=== PATIENT | female | born 1975 | race Caucasian/White ===

== ENCOUNTER 2023-09-22 11:20 | Outpatient (OUT) | payer BC, SELFPAY ==
[2023-09-22 14:57] LABS: C. Difficile PCR POSITIVE (NEGATIVE)
== END 2023-09-22 11:21 | disposition home or self-care (01) ==
LOC: LAB 11:20
PROVIDERS: PCP Internal Medicine; Visit Provider Physician Assistant
DX: J01.00 Acute maxillary sinusitis, unspecified (principal); R19.7 Diarrhea, unspecified
CPT/HCPCS: 87493

== ENCOUNTER 2023-11-09 09:19 | Emergency (ER) | payer BC, SELFPAY ==
[2023-11-09 09:22] VITALS: BP 120/86; PULSE 101; RESP 20; TEMP 37.1; O2SAT 94; BMI 27.5
--- NOTE | 2023-11-09 09:39 | PC.NURSE ---
pt arrived to er with right upper arm picc in place. pt states has chronic GI issues and had picc placed for meds and fluids
--- NOTE | 2023-11-09 10:25 | XR_ITS ---
The [address] [address] Patient Name: DAWSON DÍAZ MRN: [id number] date: 1975 Sex: F Assigned Patient Location: ER Current Patient Location: ER Accession/Order Number: [id number] Exam Date: 11/09/2023 10:20 Report Date: 11/09/2023 10:46 At the request of: SAVI WOOD Procedure: XR chest 1V EXAM: XR chest 1V HISTORY: cp COMPARISON: None. TECHNIQUE: AP view of the chest. FINDINGS: The cardiomediastinal silhouette is normal. Bibasilar stranding opacities. Bilateral pleural effusions. No pneumothorax. Left-sided PICC line with distal tip in SVC. The osseous structures are intact. XR/XR chest 1V IMPRESSION: Bibasilar atelectasis or pneumonia. Bilateral pleural effusions. Electronically authenticated by: LAMAR MUNIZ Date: 11/09/2023 10:46
[2023-11-09] MEDS: MORPHINE SULFATE 2 MG/ML SYRINGE IV (10:26)
[2023-11-09 10:28] LABS: Basophils Absolute Auto 0.1 10^3/uL (0.0-0.1); Basophils Percent Auto 0.7 % (0.2-2.0); Eosinophils Absolute Auto 0.2 10^3/uL (0.0-0.7); Eosinophils Percent Auto 2.8 % (0.9-7.0); Hemoglobin 10.5 g/dL (12.0-16.0); Immature Granulocytes Abs Auto 0.03 10^3/uL (0.00-0.03); Immature Granulocytes Pct Auto 0.4 % (0.0-0.5); Lymphocytes Percent Auto 23.5 % (20.5-60.0); Mean Corpuscular HGB Conc 32.8 g/dL (29.9-35.2); Mean Corpuscular Hemoglobin 29.2 pg (26.7-34.0); Mean Corpuscular Volume 89.1 fL (81.0-99.0); Monocytes Absolute Auto 0.7 10^3/uL (0.3-0.8); Monocytes Percent Auto 8.4 % (1.7-12.0); Neutrophils Absolute Auto 5.4 10^3/uL (1.4-6.5); Neutrophils Percent Auto 64.2 % (43.0-75.0); Platelet Count 202 10^3/uL (150-450); Red Blood Count 3.59 10^6/uL (4.20-5.40); Red Cell Distribution Width 13.8 % (11.0-15.0); White Blood Count 8.4 10^3/uL (4.0-11.0)
[2023-11-09 10:45] LABS: Prothrombin Time 9.8 sec (9.0-11.6)
[2023-11-09 10:49] LABS: HCG Qualitative NEGATIVE (NEGATIVE)
[2023-11-09 10:51] LABS: INR <0.93
[2023-11-09 10:56] LABS: D Dimer 1.78 mg/L FEU (<=0.59)
[2023-11-09 10:57] LABS: Alanine Aminotransferase 24 U/L (14-59); Albumin Globulin Ratio 0.7; Albumin Level 2.8 g/dL (3.4-5.0); Alkaline Phosphatase 117 U/L (46-116); Anion Gap 10.4; Aspartate Amino Transferase 14 U/L (15-37); BUN Creatinine Ratio 13.1; Bilirubin Total 0.5 mg/dL (0.2-1.0); Calcium 8.7 mg/dL (8.5-10.1); Carbon Dioxide 28.5 mmol/L (21.0-32.0); Chloride 103 mmol/L (98-107); Estimated GFR (African America >60 (>=60); Estimated GFR (Non-African Ame >60 (>=60); Globulin 3.9 g/dL; Glucose 93 mg/dL (74-106); Potassium 3.9 mmol/L (3.5-5.1); Sodium 138 mmol/L (136-145); Total Protein 6.7 g/dL (6.4-8.2)
[2023-11-09] MEDS: PROCHLORPERAZINE 10 MG/2 ML VIAL 5 MG IV (11:45)
[2023-11-09] MEDS: HYDROMORPHONE HCL 1 MG/ML CARTRIDGE IV (12:02)
--- NOTE | 2023-11-09 12:35 | CT_ITS ---
The [address] [address] Patient Name: DAWSON DÍAZ MRN: [id number] date: 1975 Sex: F Assigned Patient Location: ER Current Patient Location: ER Accession/Order Number: [id number] Exam Date: 11/09/2023 12:15 Report Date: 11/09/2023 13:02 At the request of: SAVI WOOD Procedure: CT angio chest EXAMINATION: CT angio chest HISTORY: PE role out COMPARISON: No relevant comparison available. TECHNIQUE: Multi-planar CT images were created with IV contrast. Axial, Coronal, and Sagittal images. Dose reduction techniques were achieved by using automated exposure control and/or adjustment of mA and/or kV according to patient size and/or use of iterative reconstruction technique. FINDINGS: LUNGS: 7 mm left upper lobe nodule axial image 34. Partial consolidation of both lower lobes with presence of air bronchograms, right greater than left PLEURA: 1.2 cm right pleural effusion VASCULATURE: Normal postcontrast opacification of the central pulmonary arterial tree with no filling defects LUCINDA: Borderline enlarged right hilar lymph node MEDIASTINUM: No mass or adenopathy. CARDIAC: No enlargement, pericardial thickening, or significant calcification. AORTA: No aneurysm or dissection. CHEST WALL: No mass or axillary adenopathy. BONES: No bone lesion or fracture. LIMITED ABDOMEN: Suture lines along the stomach OTHER: Left central venous catheter tip extends to the distal superior vena cava CT/CT angio chest IMPRESSION: No significant pulmonary thromboembolic disease Partial bibasilar consolidation right greater than left with small right pleural effusion Electronically authenticated by: LASHAWN FAJARDO Date: 11/09/2023 13:02
--- NOTE | 2023-11-09 12:48 | ED_ITS ---
HPI - General Adult General Chief complaint: Upper Respiratory Infection Stated complaint: SOB Time Seen by Provider: 11/09/23 09:37 Source: patient Mode of arrival: walk-in History of Present Illness HPI narrative: The patient have a history of diagnosis of C. difficile almost a month ago and multiple gastroenterology related problems at that according to her she having a PICC line and she give herself IV fluid twice a day with Compazine. Patient presented to us with a right upper chest pain that is continuous for the last 2 days associated also with taking a deep breath in addition to movement. The patient have no fever chills at the moment but if she might have a chills over the last few days. No coughing no nausea no vomiting but the patient have decreased p.o. intake because of her gastric issues. The patient right-sided chest pain comes whenever she take a deep breath or laying in the right side. Related Data Home Medications Medication Instructions Recorded Confirmed alprazolam 0.5 mg tablet mg 11/09/23 cholecalciferol (vitamin D3) 1,250 11/09/23 mcg (50,000 unit) capsule cyanocobalamin (vitamin B-12) mcg 11/09/23 1,000 mcg/mL injection solution dextroamphetamine-amphetamine 15 11/09/23 mg tablet dicyclomine 20 mg tablet mg 11/09/23 diphenoxylate-atropine 2.5 tab 11/09/23 mg-0.025 mg tablet duloxetine 20 mg capsule,delayed mg PO 11/09/23 release rpsaav-mleonsvo-vygussu cap PO 11/09/23 36,000-114,000-180,000 unit capsule,delay rel (Creon) olanzapine 5 mg tablet mg 11/09/23 ondansetron 8 mg disintegrating mg 11/09/23 tablet oxycodone-acetaminophen 10 mg-325 tab 11/09/23 mg tablet promethazine 25 mg tablet mg 11/09/23 sertraline 100 mg tablet mg 11/09/23 trazodone 100 mg tablet mg 11/09/23 venlafaxine 75 mg capsule,extended mg PO 11/09/23 release 24 hr Previous Rx's Medication Instructions Recorded doxycycline hyclate 100 mg capsule 100 mg PO BID 7 days #14 caps 11/09/23 orphenadrine citrate 100 mg 100 mg PO DAILY PRN muscle spasm 11/09/23 tablet,extended release #10 tabs oxycodone-acetaminophen 5 mg-325 1 tab PO Q8H PRN pain #3 tabs 11/09/23 mg tablet (Percocet) prednisone 20 mg tablet 40 mg (2 x 20 mg) PO DAILY 5 days 11/09/23 #10 tabs Allergies Allergy/AdvReac Type Severity Reaction Status Date / Time adhesive tape Allergy Severe Rash Verified 11/09/23 09:27 gabapentin Allergy Severe Anaphylaxis Verified 11/09/23 09:27 ketorolac [From Toradol] AdvReac Severe Hives Verified 11/09/23 09:27 tramadol AdvReac Severe Hives Verified 11/09/23 09:27 Review of Systems ROS Status of ROS 10 or more systems reviewed and unremark able except as noted in history and below Exam Narrative Exam Narrative: Nurses notes and vital signs reviewed and patient is not hypoxic. General: Well-appearing and in no apparent distress. Skin: Warm, dry, no pallor noted. No rash. Head: Normocephalic, atraumatic. Neck: Supple, non-tender. Eye: Pupils are equal, round and EOMI. No scleral icterus. Ears, Nose, Mouth, and Throat: TM are clear, no nasal mucosal hypertrophy. Oral mucosa is moist, no posterior oropharynx erythema, uvula is mid-line Cardiovascular: Regular Rate and Rhythm without murmur, gallop or rub. Respiratory: No accessory muscle use or respiratory distress. Lungs are clear to auscultation, no wheezing, rales or rhonchi Chest Wall: Tenderness upon palpation of the right posterior aspect of the right side of the chest wall Back: No midline thoracic or lumbar vertebral tenderness. No CVA tenderness Musculoskeletal: normal ROM, no calf or popliteal tenderness, no lower extremity edema/swelling and the patient have a PICC line in the left arm GI: Abdomen is soft, non-distended. Normal bowel sounds. No masses appreciated. No tenderness to palpation. No rebound, guarding, or rigidity noted. Neurological: A&O x4. No cranial nerve dysfunction observed. No truncal ataxia. Moves all extremities. Sensation intact. Psychiatric: Cooperative and interactive. Normal mood and affect. Constitutional Vital Signs, click to edit/add: Last Vital Signs Temp 100.4 F 11/09/23 13:37 Pulse 101 H 11/09/23 09:22 Resp 20 11/09/23 09:22 BP 120/86 11/09/23 09:22 Pulse Ox 94 L 11/09/23 09:22 O2 Del Method Room Air 11/09/23 09:22 Course Vital Signs Vital signs: Vital Signs Temperature 98.7 F 11/09/23 09:22 Pulse Rate 101 H 11/09/23 09:22 Respiratory Rate 20 11/09/23 09:22 Blood Pressure 120/86 11/09/23 09:22 Pulse Oximetry 94 L 11/09/23 09:22 Oxygen Delivery Method Room Air 11/09/23 09:22 Temperature 100.4 F 11/09/23 13:37 Pulse Rate 101 H 11/09/23 09:22 Respiratory Rate 20 11/09/23 09:22 Blood Pressure 120/86 11/09/23 09:22 Pulse Oximetry 94 L 11/09/23 09:22 Oxygen Delivery Method Room Air 11/09/23 09:22 Medical Decision Making MDM Narrative Medical decision making narrative: Patient have a low tolerance for pain and she does not not take any NSAIDs because she have a history of gastric bypass surgery Chest x-ray showed no significant pathology except for possible infiltrate in the patient CAT scan of the chest after ruling out PE did show some infiltrate as well as effusion CBC and chemistry were within normal and the patient was started on antibiotic for possible pneumonia with a pleuritic chest pain could be the reason for her pain The patient presentation is mostly benign with the patient history showing no hypoxemia and the white blood cells not elevated with no elevated BUN I did discuss the case with Dr. Streeter to make sure that the patient have no criteria to be admitted The patient was discharged home after she was treated with prednisone as well as a replacing tizanidine with Norflex and only 3 tablets of Percocet as the patient opiate intake is concerning Reviewing the patient OA RRS she last prescribed 6 tablets on the of this month of Percocet The patient is to follow up with primary care physician in next 2-3 days or to return to the emergency department should any of the signs or symptoms worsen or new symptoms develop. The patient agrees with the following Diagnosis and Treatment plan and the patient will be discharged home. Lab Data Labs: Lab Results 11/09/23 Range/Units 10:15 WBC 8.4 (4.0-11.0) 10^3/uL RBC 3.59 L (4.20-5.40) 10^6/uL Hgb 10.5 L (12.0-16.0) g/dL Hct 32.0 L (36.0-48.0) % MCV 89.1 (81.0-99.0) fL MCH 29.2 (26.7-34.0) pg MCHC 32.8 (29.9-35.2) g/dL RDW 13.8 (11.0-15.0) % Plt Count 202 (150-450) 10^3/uL MPV 10.0 (9.5-13.5) fL Neut % (Auto) 64.2 (43.0-75.0) % Lymph % (Auto) 23.5 (20.5-60.0) % [place] % (Auto) 8.4 (1.7-12.0) % Eos % (Auto) 2.8 (0.9-7.0) % Baso % (Auto) 0.7 (0.2-2.0) % Neut # (Auto) 5.4 (1.4-6.5) 10^3/uL Lymph # (Auto) 2.0 (1.2-3.8) 10^3/uL [place] # (Auto) 0.7 (0.3-0.8) 10^3/uL Eos # (Auto) 0.2 (0.0-0.7) 10^3/uL Baso # (Auto) 0.1 (0.0-0.1) 10^3/uL Abs Immat Gran (auto) 0.03 (0.00-0.03) 10^3/uL Imm/Tot Granulo (auto) 0.4 (0.0-0.5) % PT 9.8 (9.0-11.6) sec INR <0.93 D-Dimer 1.78 H* (<=0.59) mg/L FEU Sodium 138 (136-145) mmol/L Potassium 3.9 (3.5-5.1) mmol/L Chloride 103 (98-107) mmol/L Carbon Dioxide 28.5 (21.0-32.0) mmol/L Anion Gap 10.4 BUN 8.0 (7.0-18.0) mg/dL Creatinine 0.61 (0.55-1.02) mg/dL Est GFR ( Amer) >60 (>=60) Est GFR (Non-Af Amer) >60 (>=60) BUN/Creatinine Ratio 13.1 Glucose 93 (74-106) mg/dL Calcium 8.7 (8.5-10.1) mg/dL Magnesium 2.0 (1.8-2.4) mg/dL Total Bilirubin 0.5 (0.2-1.0) mg/dL AST 14 L (15-37) U/L ALT 24 (14-59) U/L Alkaline Phosphatase 117 H (46-116) U/L Total Protein 6.7 (6.4-8.2) g/dL Albumin 2.8 L (3.4-5.0) g/dL Globulin 3.9 g/dL Albumin/Globulin Ratio 0.7 Serum HCG, Qual Negative (NEGATIVE) Discharge Plan Discharge Chief Complaint: Upper Respiratory Infection Clinical Impression: Chest pain, pleuritic Pneumonia Qualifiers: Pneumonia type: due to unspecified organism Laterality: right Lung location: lower lobe of lung Qualified Code(s): J18.9 - Pneumonia, unspecified organism Patient Disposition: Home, Self-Care Time of Disposition Decision: 14:04 Condition: Good Prescriptions / Home Meds: New oxycodone-acetaminophen [Percocet] 5-325 mg tablet 1 tab PO Q8H PRN (Reason: pain) Qty: 3 0RF doxycycline hyclate 100 mg capsule 100 mg PO BID 7 Days Qty: 14 0RF orphenadrine citrate 100 mg tablet extended release 100 mg PO DAILY PRN (Reason: muscle spasm) Qty: 10 0RF prednisone 20 mg tablet 40 mg PO DAILY 5 Days Qty: 10 0RF Discontinued tizanidine 4 mg tablet oxycodone 5 mg tablet No Action venlafaxine 75 mg capsule,extended release 24hr PO sertraline 100 mg tablet olanzapine 5 mg tablet diphenoxylate-atropine 2.5-0.025 mg tablet ondansetron 8 mg tablet,disintegrating alprazolam 0.5 mg tablet oxycodone-acetaminophen 10-325 mg tablet trazodone 100 mg tablet dicyclomine 20 mg tablet cyanocobalamin (vitamin B-12) 1,000 mcg/mL solution promethazine 25 mg tablet dextroamphetamine-amphetamine 15 mg tablet duloxetine 20 mg capsule,delayed release(DR/EC) PO cholecalciferol (vitamin D3) 1,250 mcg (50,000 unit) capsule Creon 36,000-114,000- 180,000 unit capsule,delayed release(DR/EC) PO Instructions: Pleurisy (DC), Pneumonia (ED) Stand Alone Forms: Portal Instructions Referrals: DANIA PARDO [Primary Care Provider] - 1 week
[2023-11-09 13:37] VITALS: TEMP 38
[2023-11-09] MEDS: ORPHENADRINE 60 MG/ 2 ML VIAL IV (13:59)
[2023-11-09] MEDS: DOXYCYCLINE MONOHYDRATE 100 MG CAPSULE PO (13:59)
[2023-11-09] MEDS: OXYCODONE HCL 5 MG TABLET PO (13:59)
[2023-11-09] MEDS: METHYLPREDNISOLONE SOD SUCC PF 125 MG/2 ML VIAL IVP (13:59)
[2023-11-09] MEDS: CEFTRIAXONE 1,000 MG in 0.9 % SODIUM CHLORIDE 50 ML 100 MG IV (14:00)
--- NOTE | 2023-11-09 14:40 | PC.NURSE ---
PICC line flushed with 12cc NS. ETOH cap applied and PICC clamped.
== END 2023-11-09 14:44 | disposition home or self-care (01) ==
PROVIDERS: Emergency Provider Emergency Medicine; PCP Internal Medicine
DX: J18.9 Pneumonia, unspecified organism (principal); R07.9 Chest pain, unspecified; R07.81 Pleurodynia; Z79.899 Other long term (current) drug therapy; Z98.84 Bariatric surgery status; R06.02 Shortness of breath
CPT/HCPCS: 36415; 71045; 71275; 80053; 83735; 84703; 85025; 85378; 85610; 96365; 96375; 99285; J0696; J0780; J1170; J2270; J2360; J2930; Q9967

== ENCOUNTER 2023-11-20 09:30 | Outpatient (OUT) | payer BC, SELFPAY ==
--- NOTE | 2023-11-20 09:50 | XR_ITS ---
The [address] [address] Patient Name: DAWSON DÍAZ MRN: [id number] date: 1975 Sex: F Assigned Patient Location: [facility] Current Patient Location: Accession/Order Number: [id number] Exam Date: 11/20/2023 09:42 Report Date: 11/20/2023 11:07 At the request of: PHIL HECTOR Procedure: XR chest 2V EXAM: XR chest 2V HISTORY: Pleural effusion COMPARISON: None. TECHNIQUE: PA and lateral views of the chest. FINDINGS: The cardiomediastinal silhouette is normal. Left-sided PICC line with distal tip in SVC. No focal consolidation is identified. There is no pneumothorax. No pleural effusion is noted. The osseous structures are intact. XR/XR chest 2V IMPRESSION: No acute cardiopulmonary process. Electronically authenticated by: LAMAR MUNIZ Date: 11/20/2023 11:07
--- OUTSIDE RECORDS SUMMARY | 2023-11-20 09:54 | XMS_ITS | CCD ---
Author Name Unknown Address [address] [place] [address] Organization [facility] Care Team Providers Care 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 Name Role Phone LAMAR FUNES Unavailable Unavailable LAMAR FUNES Unavailable Unavailable SEAN RUIZ Unavailable Unavailable Sean Ruiz Unavailable Unavailable Unavailable Sean Ruiz Unavailable Ro Seals Unavailable Rom Zimmer Unavailable Brittany Bose Unavailable Unavailable Jose Ayala Unavailable [phone] Yg James Unavailable PROVIDER, UNKNOWN Attending Unavailable PROVIDER, UNKNOWN Admitting Unavailable REYNOLD MOORE Referring Unavailable REYNOLD MOORE Primary Care Unavailable Yg James Unavailable Reynold Moore MD Primary Care Provider Unavailable Unavailable DO Marc Nguyễn Emergency Provider [phone] MD Yg James Primary Care Provider MD Ashwin Macias Admit Provider MD Ashwin Macias Attending Provider [phone] MD Stepan Fuentes Other Provider DO Lashawn Velez Other Provider MD Jarred Begum Other Provider [phone] RuizSaen tijerina DO Primary Care Provider AronLesliprincess Unavailable Sean Ruiz DO Primary Care Provider [phone] AronLesliprincess Unavailable Arben WHITLEY, [facility] Primary Care Provider VINOD, DR RONQUILLO Admitting Unavailable YUHAS, DR RONQUILLO Attending Unavailable YUHAS, DR RONQUILLO Primary Care Unavailable MISC, DR CRAFT Admitting Unavailable MISC, DR CRAFT Attending Unavailable YUHAS, DR RONQUILLO Primary Care Unavailable MISC, DR CRAFT Consulting Unavailable MISC, DR CRAFT Admitting Unavailable MISC, DR CRAFT Attending Unavailable YUHAS, DR RONQUILLO Primary Care Unavailable MISC, DR CRAFT Consulting Unavailable MISC, DR CRAFT Admitting Unavailable MISC, DR CRAFT Attending Unavailable MISC, DR CRAFT Consulting Unavailable YUHAS, DR RONQUILLO Primary Care Unavailable REQUEST, DR GOLDMAN LISTED Admitting Unavaila ble REQUEST, DR GOLDMAN LISTED Attending Unavaila ble YUHAS, DR RONQUILLO Primary Care Unavailable MISC, DR CRAFT Consulting Unavailable PARDO, DR NAJERA Admitting Unavailable PARDO, DR NAJERA Attending Unavailable PARDO, DR NAJERA Primary Care Unavailable PARDO, DR NAJERA Consulting Unavailable Edouard, Lashawn Consulting Unavailable MISC, DR CRAFT Admitting Unavailable MISC, DR CRAFT Attending Unavailable YUHAS, DR RONQUILLO Primary Care Unavailable MISC, DR CRAFT Consulting Unavailable SANFORD OZUNA Attending Unavailable SANFORD OZUNA Admitting Unavailable WUDELPARVIN Consulting Unavailable RUIZ, SEAN J Primary Care Unavailable KALASH, MOHAMAD Referring Unavailable KAREL DRISCOLL Attending Unavailable RUIZ, SEAN J Primary Care Unavailable ANTHONY MCCONNELL Attending Unavailable KALASH, MOHAMAD Referring Unavailable RUIZ, SEAN J Primary Care Unavailable WUSON CHENEYARD Referring Unavailable RUIZ, SEAN J Primary Care Unavailable SANFORD OZUNA Referring Unavailable SANFORD OZUNA Attending Unavailable BROOK RENAE Admitting Unavailable RUIZ, SEAN J Primary Care Unavailable Ángel GARCIA Consulting Unavailable SANFORD OZUNA Admitting Unavailable BATOOL CA Referring Unavailable SANFORD OZUNA Attending Unavailable RUIZ, SEAN J Primary Care Unavailable SANFORD OZUNA Attending Unavailable SANFORD OZUNA Admitting Unavailable RUIZ, SEAN J Primary Care Unavailable BETYA, K Consulting Unavailable YANNI SYED Admitting Unavailable YANNI SYED Attending Unavailable RUIZ, SEAN J Primary Care Unavailable LASHAWN HALL Consulting Unavailable SANFORD OZUNA Attending Unavailable BROOK RENAE Admitting Unavailable RUIZ, SEAN J Primary Care Unavailable RUIZ, SEAN J Primary Care Unavailable RAMBASEK, BRIGITTE Referring Unavailable MIRIAM MARTINEZ Attending Unavailable RIP YOUSSEF Referring Unavailable RUIZ, SEAN J Primary Care Unavailable ABDULKADIR MAIDANA Attending Unavailable JANY FUENTES Consulting Unavailable RUIZ, SEAN J Primary Care Unavailable QAPAMADISON BERRYBET Admitting Unavailable ARNOLD JOHNSON Attending Unavailable TRUNG VÁZQUEZ Admitting Unavailable KEYANARIP Referring Unavailable RUIZ, SEAN J Primary Care Unavailable JANY FUENTES Consulting Unavailable DARLINE ROA Admitting Unavailable DARLINE ORA Attending Unavailable RUIZ, SEAN J Primary Care Unavailable XIN MCGILL Attending Unavailable RUIZ, SEAN J Primary Care Unavailable RAMBASEK, BRIGITTE Referring Unavailable Mike Lawler Unavailable [phone] Mike Lawler Attending Un available Dr. Yg James Primary Care Unavaila Amber Gregory Unavailable SANTIAGO Pardo Primary Care Provider DO Skip Soto Emergency Provider MD Tavares Prince Admit Provider [phone] MD Tavares Prince Attending Provider [phone] MD Jarred Begum Other Provider [phone] Aman TRUONG, Sera Unavailable Carmine Banks RD Unavailable Edvin HENDERSON MD, Daniel B Primary Care Provider Dania Pardo MD Primary Care Provider Aron MIMS, Jacob Unavailable SANTIAGO Pardo Primary Care Provider JOSE Johnston Emergency Provider Stepan Fuentes Unavailable DO Ro Guillaume Emergency Provider [phone] DANIA PARDO Primary Care Unavailable SANFORD RANDOLPH Attending Unavailable BELEM REMY Referring Unavailable DANIA PARDO Primary Care Unavailable HAMLET ZAFAR Referring Unavailabl e DANIA PARDO Primary Care Unavailable Yg James Primary Care Unavailable Lisa, Samuel Admitting Unavailab le Lisa, Samuel Attending Unavailab le David Bejarano Admitting Unavailable David Bejarano Attending Unavailable Dania Pardo Primary Care Unavailable Carolyn Vang Consulting Unavailable Negro Magana Unavailable Stpean Fuentes Consulting UnavailTavares Hubbard Admitting Unavailable Tavares Prince Attending Unavailable Jarred Begum Consulting Unavailable Dania Pardo Primary Care Unavailable Dania Pardo Primary Care Unavailable Amber Johnston Admitting Unavailable Amber Johnston Attending Unavailable Dania Pardo Primary Care Unavailable Ro Guillaume Admitting Unavailable Ro Guillaume Attending Unavailable YANCI AGUILAR Attending Unavailable YANCI AGUILAR Attending Unavailable BELEM REMY Attending Unavailable BELEM REMY Attending Unavailable ARGENIS CRUZ Attending Unavailable YANCI AGUILAR Attending Unavailable KAEL POLK Attending Unavailable ARGENIS CRUZ Attending Unavailable HARRY EUCEDA Attending Unavailab kristina PARDO SANTIAGO DANIA Momin Primary Care Unavailable Magaly ANDRADE Referring Unava ilable HAMLET ZAFAR Attending Unavailable SEAN RUIZ Primary Care Unavailable MAGED GODDARD Attending Unavailable SANFORD OZUNA Attending Unavailable INDU RUIZUS Mona Primary Care Unavailable GILBERTO, SEAN J Primary Care Unavailable SERA SOUSA Attending Unavailable MAGED GODDARD Referring Unavailable SEAN RUIZ Referring Unavailable RUIZ, SEAN J Primary Care Unavailable HAMLET ZAFAR Attending Unavailable SANFORD OZUNA Attending Unavailable GILBERTO SEAN Mona Primary Care Unavailable SANFORD OZUNA Referring Unavailable RUIZ, SEAN J Primary Care Unavailable RUIZ, SEAN J Primary Care Unavailable LASMAGED ZARAGOZA Attending Unavailable RUIZ, SEAN J Primary Care Unavailable RUIZ, SEAN J Primary Care Unavailable MAGED GODDARD A Referring Unavailable PARDO II, DANIA B Primary Care Unavailable CHRIS DALE Attending Unavailable RUIZ, SEAN J Primary Care Unavailable [facility], [facility] Attending Unavailable MAGED GODDARD Referring Unavailable RUIZ, SEAN J Primary Care Unavailable RIP YOUSSEF Referring Unavailable RUIZ, SEAN J Primary Care Unavailable Ribakow, Jorge L Attending Unavailable PARDO II, DANIA B Primary Care Unavailable PARDO II, DANIA B Referring Unavailable CECIL SCHNEIDER Attending Unavailable PARDO II, DANIA B Primary Care Unavailable Magaly ANDRADE Attending Unava ilable SANFORD OZUNA Attending Unavailable RUIZ, SEAN J Primary Care Unavailable RIUZ, SEAN J Primary Care Unavailable GREWAL, SOMMER Admitting Unavailable GREWAL, SOMMER Attending Unavailable GREWAL, SOMMER Referring Unavailable RUIZ, SEAN J Primary Care Unavailable CECIL SCHNEIDER Attending Unavailable HAMLET ZAFAR Referring Unavailable RUIZ, SEAN J Primary Care Unavailable MORAIMA CARY Attending Unavailable HAMLET ZAFAR Referring Unavailable RUIZ, SEAN J Primary Care Unavailable Magaly ANDRADE Attending Unava ilable RUIZ, SEAN J Primary Care Unavailable IGEL, CARMINE J Attending Unavailable TAO CARMINE Mona Referring Unavailable RUIZ, SEAN J Primary Care Unavailable MAGED GODDARD Referring Unavailable HAMLET ZAFAR Attending Unavailable SANFORD OZUNA Attending Unavailable JUDSON, GRETEL Referring Unavailable RUIZ, SEAN J Primary Care Unavailable JUDSON, GRETEL Referring Unavailable RUIZ, SEAN J Primary Care Unavailable RUIZ, SEAN J Primary Care Unavailable JASON MCCARTY Admitting Unavailable KIM MCKEON Attending Deborah vailable RUIZ, SEAN J Primary Care Unavailable Ribakow, Jorge L Referring Unavailable RUIZ, SEAN J Primary Care Unavailable HAMLET ZAFAR Attending Unavailable PARDO II, DANIA B Primary Care Unavailable PARDO II, DANIA B Referring Unavailable HAMLET ZAFAR Attending Unavailable RUIZ, SEAN J Primary Care Unavailable GREWAL, SOMMER Admitting Unavailable HAMLET ZAFAR Referring Unavailable KIM MCKEON Attending Deborah vailable RUIZ, SEAN J Primary Care Unavailable HAMLET ZAFAR Referring Unavailable EDVIN II, DANIA Momin Primary Care Unavailable Magaly ANDRADE Attending Unava ilable PARDO II, DANIA Momin Primary Care Unavailable HAMLET ZAFAR Referring Unavailable SANFORD OZUNA Referring Unavailable RUIZ, SEAN J Primary Care Unavailable RUIZ, SEAN J Primary Care Unavailable SKIP CALDERON Attending Unavailable RUIZ, SEAN J Primary Care Unavailable SANFORD OZUNA Attending Unavailable RUIZ, SEAN J Primary Care Unavailable RUIZ, SEAN J Primary Care Unavailable ANABELLE POTTER Attending Unavailable HAMLET ZAFAR Referring Unavailable RUIZ, SEAN J Primary Care Unavailable HAMLET ZAFAR Referring Unavailable RUIZ, SEAN J Primary Care Unavailable NHI HINOJOSA Attending Unavailable SOFIE PERALES Attending Unavailable RUIZ, SEAN J Primary Care Unavailable RUIZ, SEAN J Referring Unavailable RUIZ, SEAN J Primary Care Unavailable CECIL SCHNEIDER Attending Unavailable CHRISTINA BARRON Attending Unavailable RUIZ, SEAN J Primary Care Unavailable Skylar Sanchez Primary Care Provider SKYLAR COFFEY Attending Unavailable SKYLAR COFFEY Referring Unavailable SKYLAR COFFEY Primary Care Unavailable Allergies Allergy Classification Reported Allergen(s) Allergy Type Date of Onset Reaction(s) Facility (20 sources) Adhesive Tape; Translations: [adhesive tape] Allergy to substance (finding) 08-09-20 21 Unknown Reaction [facility] (18 sources) Aspartame; Translations: [ASPARTAME] Drug Allergy 04-29-20 22 Headache, Nausea Only, Nausea [facility] Other Phone (unformatted) : [phone] Comment on above: nausea/migraines (3 sources) Tape - Adhesive, Bandaids, Paper Other [facility] Other Phone (unformatted) : [phone] Comment on above: redness (20 sources) Ketorolac; Translations: [Toradol Oral TABS] Drug Allergy [facility] Work Phone: (20 sources) traMADol; Translations: [tramadol] Drug Allergy 01-02-20 22 Hives, Unknown, Swelling [facility] Work Phone: (20 sources) Ketorolac; Translations: [KETOROLAC TROMETHAMINE] Drug Allergy 07-06-20 12 Hives, Swelling [facility] (9 sources) Morphine; Translations: [MORPHINE] Drug Allergy 12-12-19 16 Hives [facility] (3 sources) BANDAGE TAPE; Translations: [BANDAGE TAPE] Propensity to adverse reactions (disorder) 12-12-19 16 Itching, Rash, Swelling [facility] (10 sources) Ketorolac Drug Allergy 04-29-20 22 Unknown, Edema [facility] Other Phone (unformatted) : [phone] (3 sources) gabapentin; Translations: [Gabapentin TABS] Drug Allergy [facility] Work Phone: (20 sources) gabapentin; Translations: [GABAPENTIN] Drug Allergy 04-08-20 22 Angioedema, anaphylaxis, Unknown, Swelling [facility] (20 sources) Adhesive Tape; Translations: [ADHESIVE TAPE (ROSINS)] Propensity to adverse reactions 09-11-20 08 Rash, Swelling, Itching [facility] (20 sources) tomato allergenic extract; Translations: [TOMATO] Drug Allergy 06-18-20 22 Intolerance [facility] (20 sources) Non-steroidal anti-inflammatory agent; Translations: [NSAIDS (NON-STEROIDAL ANTI-INFLAMMATORY DRUG)] Propensity to adverse reactions to drug 07-29-20 Other: See Comments, Contraindicati on-Medical Surgical [facility] Work Phone: (20 sources) Scopolamine; Translations: [SCOPOLAMINE] Drug Allergy 07-29-20 Other: See Comments [facility] (20 sources) PARoxetine; Translations: [PAROXETINE] Drug Allergy 08-08-20 22 Intolerance [facility] (1 source) Ibuprofen Drug Allergy [facility] (1 source) Ketorolac Drug Allergy [facility] (1 source) NSAIDs Drug allergy (disorder) [facility] (3 sources) butylscopolamine Drug Allergy 07-29-20 22 Unknown [facility] (3 sources) Ketorolac Allergy to substance 01-16-20 23 Unknown [facility] (3 sources) Wound Dressing Adhesive Drug Intolerance 09-11-20 08 Unknown, Itching, Rash, Swelling [facility] (3 sources) Adhesive agent; Translations: [ADHESIVE] Propensity to adverse reactions to drug (disorder) 12-12-19 16 Itching, Rash, Swelling [facility] Rep[facility] (3 sources) ADHESIVE TAPE-SILICONES; Translations: [ADHESIVE TAPE-SILICONES] Propensity to adverse reactions to drug (disorder) 05-16-20 21 Rash [facility] (1 source) Ketorolac Drug Allergy 11-04-19 24 [facility] (1 source) traMADol Drug Allergy 11-04-19 24 [facility] (1 source) Doxycycline Drug Allergy 11-18-19 24 [facility] Medications Current Medications Medication Drug Class(es) Dates Sig (Normalized) Sig (Original) 0.25 MG, 0.5 MG Dose 3 ML semaglutide 0.68 MG/ML Pen Injector [Ozempic] (1 source) Ozempic (0.25 or 0.5 MG/DOSE) 2 MG/3ML inject 0.5 milligram subcutaneously every week Subcutaneous for 28 Days Active acetaminophen 325 mg / oxyCODONE hydrochloride 10 mg oral tablet (2 sources) Opioid Agonist Start: 10-28-2023 take 1 tablet by mouth three times daily Oxycodone-Acetaminop hen (Percocet) 10-325 mg tablet Active 1 TAB PO Three times daily 02 13October 28, 2023 ALPRAZolam 0.5 mg oral tablet (20 sources) Benzodiazepine Start: 10-27-2023 take 1 tablet by mouth every twenty-four hours as needed for anxiety and anxiety and anxiety ALPRAZolam (Xanax) 0.5 MG tablet Indications: Anxiety Take 1 tablet (0.5 mg) by mouth Daily as needed for anxiety 30 tablet 0 10/27/2023 Active Start: 10-27-2023 take 1 tablet by chevy th every twenty-four hours as needed for anxiety and anxiety and anxiety ALPRAZolam (Xanax) 0.5 MG tablet Indications: Anxiety Take 1 tablet (0.5 mg) by mouth Daily as needed for anxiety 30 tablet 0 10/27/2023 Active Start: 09-14-2021 End: 02-13-2024 ALPRAZolam (XANAX) 0.5 mg ta blet Take 1 tablet (0.5 mg total) by mouth as needed. 0 10/08/2023 Active Start: 05-22-2021 take 1 tablet by chevy th every twenty-four hours as needed ALPRAZolam (XANAX) 0.5 mg tablet Take 0.5 mg by mouth at bedtime as needed. 0 09/14/2021 Active Comment on above: Take 0.5 mg by mouth at bedtime as needed. amoxicillin 875 mg / clavulanate 125 mg oral tablet (10 sources) Penicillin-class Antibacterial Start: 3 take 1 tablet by mouth every twelve hours Amoxicillin-Pot Clavulanate 875-125 MG 1 tablet Orally every 12 hrs for 10 day(s) May, Active Start: 04-29-2022 End: 05-04-2022 take 1 tablet by mouth every twelve hours Amoxicillin-Pot Clavulanate Discontinued 1 TAB PO Q12H April 28, 2022 11:00pm May 04, 2022 8:13am Amphetamine / Dextroamphetamine (2 sources) Central Nervous System Stimulant Adderall Active amphetamine aspartate 3.75 mg / amphetamine sulfate 3.75 mg / dextroamphetamine saccharate 3.75 mg / dextroamphetamine sulfate 3.75 mg oral tablet (20 sources) Central Nervous System Stimulant Start: 3 take 15 mg by mouth twice daily Dextroamphetamine- Amphetamine Active 15 MG PO Twice daily June 02, 2023 11:00pm Start: 04-14-2022 End: 06-03-2023 take 20 mg by mouth twice daily Dextroamphetamine-Amphetamine Discontinu ed 20 MG PO Twice daily April 28, 2022 11:00pm June 03, 2023 2:12pm Start: 05-22-2021 End: 12-05-2021 take 1.5 tablets by mouth once daily in the morning, then take 1 tablet by mouth once daily in the evening Adderall 20 MG Oral Tablet 1.5 tabs qam, 1 tab qpm Quantity: 0 Refills: 0 Ordered: 22-May-2021 DO Start : 22-May-2021 End : 05-Dec-2021 Complete take 1 tablet by chevy th once daily amphetamine-dextroamphetamine (ADDERALL) 20 MG tablet Take 20 mg by mouth daily. 0 Active Comment on above: Take 20 mg by mouth twice daily. amylase [id number] unt / lipase 98423 unt / protease [id number] unt delayed release oral capsule (20 sources) Start: 10-08-2023 take 25073-311382 capsules by mouth once at mealtime Sikowl-Vxbaryax-Gpbg ase (Creon) 36,000-114,000- 180,000 unit capsule,delayed release(DR/EC) Active 1 CAP PO 3x/Day before meals October 08, 2023 12:00am administer with meals and/or snacks Start: 07-13-2023 End: 01-09-2024 take 1 capsule by mouth three times daily at mealtime tsehzl-xfwjfwrn-reiwzlv (CREON) 24,000-76,000 -120,000 unit delayed release capsule Take 1 capsule by mouth three times a day with meals. 270 capsule 1 07/13/2023 01/09/2024 Active Start: 06-12-2023 End: 09-29-2023 wmwlmf-pytgwyia-labqukk (CRE ON 6) 6,000-19,000 -30,000 unit delayed release capsule Take 3 capsules by mouth three times a day with meals. Increase to 3 tabs with meals and 2 with a snack 810 capsule 0 07/01/2023 07/13/2023 Discontinued (Changing Therapy/Dosage Form) Start: 05-15-2023 Creon 19228-19 4000 units capsule delayed-release particles capsule take 2 capsules by mouth with meals and 1 capsule with SNACKS 0 05/15/2023 Active lipase-protease- amylase (CREON) 24,000-76,000 -120,000 unit capsule,delayed release(DR/EC) Take 1 capsule (24,000 units of lipase total) by mouth in the morning and 1 capsule (24,000 units of lipase total) at noon and 1 capsule (24,000 units of lipase total) in the evening. Take with meals. 0 Active Comment on above: Take 1 capsule by mo uth three times a day with meals. Take 3 capsules by m outh three times a day with meals. Increase to 3 tabs with meals and 2 with a snack atropine sulfate 0.025 mg / diphenoxylate hydrochloride 2.5 mg oral tablet (3 sources) Anticholinergic, Cholinergic Muscarinic Antagonist, Antidiarrheal Start: take 1 tablet by mouth three times daily Diphenoxylate-Atr opine Active 1 TAB PO Three times daily 9 October 23, 2023 12:00am B Complex Vitamins (vitamin B complex) tablet (3 sources) Start: 2 B Complex Vitamins (vitamin B complex) tablet as directed Orally 0 08/04/2022 Active baclofen 5 mg oral tablet (20 sources) gamma-Aminobutyric Acid-ergic Agonist Start: 3 take 5 mg by mouth every eight hours Baclofen Active 5 MG PO Q8H October 08, 2023 12:00am Start: 07-20-2023 take 1 tablet by chevy th three times daily baclofen 5 mg tablet Take 1 tablet by mouth three times a day. 270 tablet 5 07/20/2023 Active Start: 06-12-2023 End: 06-27-2023 take 1 tablet by mouth every eight hours as needed baclofen 5 mg tablet Take 1 tablet by mouth three times a day as needed (abdominal pain) for up to 15 days. use these medication as first line for abdominal pain (along with tylenol 1 gm 4 times a day and bentyl) and if response is inadequate use the tizanidine. 45 Each 0 06/12/2023 06/27/2023 Active Start: 05-16-2023 baclofen (Baron esal) 10 MG/20ML intrathecal injection Comment on above: Take 1 tablet by chevy th three times a day as needed (abdominal pain) for up to 15 days. use these medication as first line for abdominal pain (along with tylenol 1 gm 4 times a day and bentyl) and if response is inadequate use the tizanidine. Take 1 tablet by chevy th three times a day. calcium chloride 0.0014 meq/ml / potassium chloride 0.004 meq/ml / sodium chloride 0.103 meq/ml / sodium lactate 0.028 meq/ml injectable solution (6 sources) Start: 10-27-2023 Ringer's solution,lactated (lactated ringer's) infusion Infuse 100 mL/hr into a venous catheter as needed. 0 10/27/2023 Active Start: 10-27-2023 lactated Ringe r's infusion Indications: Projectile vomiting with nausea , Functional diarrhea , Poor appetite Infuse 100 mL/hr at 100 mL/hr into a venous catheter Daily as needed (Poor appetie and nausea/vomiting, chronic diarrhea) 2000 mL 11 10/27/2023 Active Start: 05-09-2022 Lactated Ringe rs Intravenous Solution Please infuse 2L of LR over 2-4 hours. Quantity: 2000 Refills: 1 Ordered: 09-May-2022 Brittany Bose MD Start : 09-May-2022 Active to be given at Alex calcium citrate 1040 mg oral tablet (20 sources) Start: 04-29-2022 take 250 mg by mouth twice daily Calcium Citrate Active 250 MG PO Twice daily April 28, 2022 11:00pm Start: 05-22-2021 Calcium Citrat e 250 MG Oral Tablet USE DIRECTED - NEEDED. Quantity: 0 Refills: 0 Ordered: 22-May-2021 DO Start : 22-May-2021 Active cephalexin 500 mg oral capsule (2 sources) Cephalosporin Antibacterial Start: 04-28-2023 End: 05-02-2023 take 1 capsule by mouth three times daily cephalexin 500 mg oral capsule ; 1 cap(s) orally 3 times a day Quantity: 15 Refills: 0 Ordered: 28-Apr-2023 Mike Lawler Start: 28-Apr-2023 End: 02-May-2023 Generic Substitution Allowed Comments: Finish all this medication unless otherwise directed by prescriber. Start: 10-20-2019 End: 06-16-2022 take 1 capsule by mouth three times daily cephALEXin (KEFLEX) 500 mg capsule Take 1 capsule by mouth three times daily. 30 capsule 0 10/20/2019 06/16/2022 Discontinued Comment on above: Take 1 capsule by [facility] three times daily. Finish all this medi cation unless otherwise directed by prescriber. cholecalciferol 1.25 mg oral capsule (20 sources) Vitamin D Start: 10-22-19 24 End: 01-20-20 24 take 1 capsule by mouth two times weekly cholecalciferol, Vitamin D3, (VITAMIN D3) 1,250 mcg (50,000 unit) cap capsule Indications: Diarrhea due to malabsorption , Vitamin D deficiency Take 1 capsule by mouth two times a week. 24 capsule 0 10/22/2023 01/20/2024 Active Start: 10-08-2023 cholecalcifero l, vitamin D3, 25 mcg (1,000 unit) capsule 1 capsule (1,000 Units total). 0 10/08/2023 Active Start: 10-08-2023 take 1 capsule by mo [facility] once daily Cholecalciferol (Vitamin D3) (Vitamin D3) 25 mcg (1,000 unit) capsule Active 1000 UNIT PO Daily October 08, 2023 12:00am Start: 06-19-2022 End: 10-22-2023 take 1 tablet by mouth once daily cholecalciferol (VITAMIN D3) 1,000 unit tab tablet Indications: Malnutrition of mild degree (HCC) , History of Gelacio-en-Y gastric bypass take 1 tablet by mouth once daily . BREAK OPEN AND RELEASE UNDER TONGUE FOR BEST ABSORPTION 90 tablet 0 12/12/2022 10/22/2023 Discontinued Comment on above: Take 1 tablet by chevy once daily. Break open and release under tongue for best absorption take 1 tablet by chevy th once daily . BREAK OPEN AND RELEASE UNDER TONGUE FOR BEST ABSORPTION Take 1 capsule by mo [facility] two times a week. coconut oil 1000 mg oral capsule (2 sources) Start: 11-01-19 16 take 1 capsule by mouth once daily Coconut Oil 1000 MG CAPS Take 1 Each by mouth daily. 30 Capsule 3 11/01/2015 Active colesevelam hydrochloride 625 mg oral tablet (5 sources) Bile Acid Sequestrant Start: 03-28-20 End: 06-26-20 take 3 tablets by mouth twice daily at mealtime colesevelam (WELCHOL) 625 mg tablet Take 3 tablets by mouth twice daily with meals. 540 tablet 0 03/28/2023 06/26/2023 Suspended Comment on above: Take 3 tablets by [facility] twice daily with meals. diclofenac sodium 75 mg delayed release oral tablet (2 sources) Nonsteroidal Anti-inflammatory Drug Start: 01-22-20 18 take 1 tablet by mouth twice daily diclofenac (VOLTAREN) 75 MG enteric coated tablet TAKE ONE TABLET BY MOUTH TWO TIMES A DAY 180 Tablet 3 01/21/2018 Active dicyclomine hydrochloride 20 mg oral tablet (20 sources) Anticholinergic Start: 07-20-20 23 dicyclomine (BENTYL) 20 mg tablet Twice daily 0 07/20/2023 Active Start: 06-12-2023 End: 06-27-2023 take 1 capsule by mouth three times daily dicyclomine (BENTYL) 10 mg capsule Take 1 capsule by mouth three times a day for 15 days. 45 capsule 0 06/12/2023 06/27/2023 Active Comment on above: Take 1 capsule by mo ut three times a day for 15 days. Take 1 tablet by chevy two times a day. diphenhydrAMINE hydrochloride 25 mg oral capsule (20 sources) Histamine-1 Receptor Antagonist Start: take 2 capsules by mouth every six hours Diphenhydramine Hcl (Benadryl) 25 mg Capsule Active 50 MG PO Q6H April 28, 2022 11:00pm Start: 04-29-2022 take 1 capsule by mo ut three times daily Diphenhydramine Hcl (Benadryl) 25 mg Capsule Active 25 MG PO Three times daily April 29, 2022 12:00am Start: 05-22-2021 take 1 tablet by chevy at bedtime Benadryl Allergy 25 MG Oral Tablet TAKE 1 TABLET AT BEDTIME. Quantity: 0 Refills: 0 Ordered: 22-May-2021 DO Start : 22-May-2021 Active diphenhydrAMINE (BENADRYL) 12.5 mg/5 mL elixir Take by mouth 4 (four) times a day as needed for itching. 0 Active take 2 tablets by mo [facility] every six hours as needed diphenhydrAMINE 12.5 mg oral tablet, chewable ; 2 tab(s) orally every 6 hours, As Needed with oxycodone Quantity: 0 Refills: 0 Ordered: 23-Apr-2022 Jana Heaton Generic Substitution Allowed Comment on above: Take 50 mg by mouth every 6 hours as needed for itching/rash. Dodex 1000 MCG/ML injection (3 sources) Dodex 1000 MCG/M L injection DULoxetine 60 mg delayed release oral capsule (18 sources) Serotonin and Norepinephrine Reuptake Inhibitor Start: 10-08-2023 Duloxetine Active MG PO October 08, 2023 12:00am Start: 09-18-2023 End: 10-27-2023 take 1 capsule by mouth in the morning DULoxetine (Cymbalta) [address] capsule Take 60 mg by mouth in the morning. 0 09/18/2023 10/27/2023 Discontinued (Other) Start: 12-14-2023 take 1 capsule by mo uth once daily DULoxetine (CYMBALTA) 30 mg capsule Take 1 capsule by mouth once daily. 30 capsule 2 08/27/2023 Active Start: 08-03-2023 take 1 capsule by mo uth once daily DULoxetine (CYMBALTA) 20 mg capsule Take 1 capsule by mouth once daily. 30 capsule 2 08/03/2023 Active Comment on above: Take 1 capsule by mo uth once daily. eletriptan 40 mg oral tablet (20 sources) Serotonin-1b and Serotonin-1d Receptor Agonist Start: take 1 tablet by mouth once daily eletriptan (Relpax) 40 MG tablet Indications: Nonintractable headache, unspecified chronicity pattern, unspecified headache type TAKE 1 TABLET BY MOUTH ONCE DAILY AT THE SAME TIME EACH DAY 27 tablet 3 05/26/2023 Active Start: 05-22-2021 take 1 tablet by chevy th every two hours Eletriptan (Relpax) 40 mg Tablet Active 40 MG PO Q2H April 28, 2022 11:00pm Start: 11-19-2017 take 1 tablet by chevy th every two hours as needed eletriptan (RELPAX) 20 MG tablet Take 1 Tablet by mouth as needed for Migraine. may repeat in 2 hours if necessary 10 Tablet 3 11/19/2017 Active Comment on above: Take 40 mg by mouth as needed. May repeat dose after 2 hours if needed. Maximum daily dose is 80 mg per day. ertapenem 1 g in NaCl 100 mL (INVanz) (10 sources) Start: End: inject 1 g intravenously once daily ertapenem 1 g in NaCl 100 mL (INVanz) Inject 1 g intravenously once daily for 14 days. 100 mL 0 08/15/2022 08/29/2022 Active Comment on above: Inject 1 g intraveno usly once daily for 14 days. estradiol 0.1 mg/ml vaginal cream (8 sources) Estrogen Start: Estradiol (Estrace) 0.01 % (0.1 mg/gram) cream Active 0.25 APPLICATOR VAGINAL Bedtime October 08, 2023 12:00am for 14 days Start: 02-06-2023 estradioL (EST RACE) 0.01 % (0.1 mg/gram) vaginal cream Indications: Post-menopause atrophic vaginitis insert 1 gram vaginally two times a week 42.5 g 0 02/06/2023 Active Estrace 0.1 MG/G M vaginal cream estrogens, conjugated (intermediate) 0.625 mg/ml vaginal cream (2 sources) Estrogen Start: 11-19-2017 conjugated estrogens (PREMARIN) 0.625 MG/GM vaginal cream INSERT 0.5 GRAMS INTO THE VAGINA DAILY. 30 g 3 11/19/2017 Active fexofenadine hydrochloride 180 mg oral tablet (2 sources) Histamine-1 Receptor Antagonist Start: 11-19-2017 take 1 tablet by mouth once daily fexofenadine (RITU) 180 MG tablet Take 1 Tablet by mouth daily. 30 Tablet 3 11/19/2017 Active fluticasone propionate 0.05 mg/actuat metered dose nasal spray (2 sources) Corticosteroid Start: 05-25-2023 take 2 spray(s) nasal route once daily Fluticasone Propionate 50 MCG/ACT 2 sprays Nasally Once a day for 14 day(s) May, Active Start: 05-25-2023 take 2 spray(s) nasa l route once daily Fluticasone Propionate 50 MCG/ACT 2 sprays Nasally Once a day for 14 day(s) May, Active Fructooligosaccharides (FOS PO) (3 sources) Start: 08-17-2023 Fructooligosaccharides (FOS PO) peptamen 1.5 or equivalents: total calories: 1210/ day(22 hours), tf goal rate: 55/hr, water flushes: 150 ml every 4 hours, diet: regular diet, hold 1 hour before and after the synthroid 0 08/17/2023 Active heparin sodium, porcine 10 unt/ml injectable solution (2 sources) Unfractionated Heparin, Anti-coagulant Start: 10-27-2023 End: 10-27-2023 Heparin Sod, Pork, Lock Flush (heparin flush) 10 units/mL injection Indications: Projectile vomiting with nausea 3 mL (30 Units) by Intracatheter route 1 (one) time for 1 dose 90 mL 0 10/27/2023 10/27/2023 Active levothyroxine sodium 0.05 mg oral tablet (20 sources) l-Thyroxine Start: 05-22-2021 take 1 tablet by mouth once daily Synthroid 75 MCG Oral Tablet TAKE 1 TABLET DAILY. Quantity: 0 Refills: 0 Ordered: 22-May-2021 DO Start : 22-May-2021 Active Start: 05-22-2021 Synthroid 75 M CG Oral Tablet Quantity: 0 Refills: 0 Ordered: 22-May-2021 DO Start : 22-May-2021 Active Start: 05-28-2017 take 1 tablet by chevy th in the morning levothyroxine (SYNTHROID, LEVOTHROID) 50 MCG tablet Take 1 tablet (50 mcg total) by mouth in the morning. 0 08/16/2022 Active take 1 tablet by chevy th once daily in the morning levothyroxine 50 mcg (0.05 mg) oral tablet ; 1 tab(s) orally once a day (in the morning) Quantity: 0 Refills: 0 Ordered: 23-Apr-2022 Jana Heaton Generic Substitution Allowed Comment on above: Take 50 mcg by mouth . lidocaine 0.04 mg/mg medicated patch (1 source) Antiarrhythmic, Amide Local Anesthetic Start: 2022 End: 2022 lidocaine (SALONPAS, LIDOCAINE,) 4 % patch Apply 1 application as directed once daily for 5 days. over left lower rib cage area 5 Patch 0 06/12/2023 06/17/2023 Active Comment on above: Apply 1 application as directed once daily for 5 days. over left lower rib cage area methylPREDNISolone 4 mg oral tablet (4 sources) Corticosteroid Start: 2020 Medrol 4 MG as directed Orally As Directed for 6 days May, Active metoclopramide 10 mg oral tablet (2 sources) Dopamine-2 Receptor Antagonist Start: 2020 take 1 tablet by mouth three times daily Reglan 10 mg oral tablet ; 1 tab(s) orally 3 times a day Quantity: 30 Refills: 0 Ordered: 30-May-2021 Jose Ayala Start: 30-May-2021 Generic Substitution Allowed metoprolol tartrate 25 mg oral tablet (3 sources) beta-Adrenergic Gary take 1 tablet by mouth every six hours metoprolol tartrate (Lopressor) 25 MG tablet take 1 tablet by mouth every 6 hours if needed for PALPITATIONS 0 Active Miscellaneous Medical Supply kit (5 sources) Start: 2021 End: 2022 apply 1 capsule transdermal route every week as needed Miscellaneous Medical Supply kit Indications: PICC (peripherally inserted central catheter) in place 1 Kit one time a week. PICC dressing kit with: sterile gloves, skin prep, sterile chlorhexidine swabs, transparent dressing and STAT LOCK securement device, sterile cap, sterile chlorhexidine patch for insertion site, mask. Change dressing weekly and as needed. 5 Kit 0 09/12/2022 10/12/2022 Active Start: 09-12-2022 End: 10-12-2022 apply 1 capsule transdermal route every week as needed Miscellaneous Medical Supply kit Indications: PICC (peripherally inserted central catheter) in place 1 Kit one time a week. PICC dressing kit with: sterile gloves, skin prep, sterile chlorhexidine swabs, transparent dressing and STAT LOCK securement device, sterile cap, sterile chlorhexidine patch for insertion site, mask. Change dressing weekly and as needed. 5 Kit 0 09/12/2022 10/12/2022 Suspended Comment on above: 1 Kit one time a kemi han PICC dressing kit with: sterile gloves, skin prep, sterile chlorhexidine swabs, transparent dressing and STAT LOCK securement device, sterile cap, sterile chlorhexidine patch for insertion site, mask. Change dressing weekly and as needed. miSOPROStol 0.2 mg oral tablet (20 sources) Prostaglandin E1 Analog Start: End: take 1 tablet by mouth four times daily miSOPROStol (CYTOTEC) 200 mcg tablet Take 1 tablet by mouth four times daily. 360 tablet 0 06/16/2022 09/14/2022 Active Comment on above: Take 1 tablet by chevy th four times daily. Multiple Vitamins-Minerals (MULTI COMPLETE) CAPS (2 sources) Multiple Vitamins-Minerals (MULTI COMPLETE) CAPS Take by mouth. 0 Active multivitamin capsule (1 source) take 1 capsule by mouth in the morning multivitamin capsule Take 1 capsule by mouth in the morning. 0 Active 1 ml octreotide 0.1 mg/ml prefilled syringe (20 sources) Somatostatin Analog Start: 023 End: inject 1 mL by subcutaneous injection twice daily octreotide acetate 100 mcg/mL (1 mL) Inject 1 mL subcutaneously two times a day. 60 mL 2 09/01/2023 11/30/2023 Active Start: 09-01-2023 End: 11-30-2023 inject 100 ug by subcutaneous injection in the morning octreotide (SandoSTATIN) 100 MCG/ML injection Inject 100 mcg under the skin in the morning and 100 mcg in the evening. 0 09/01/2023 11/30/2023 Active Start: 08-27-2023 End: 11-25-2023 octreotide acetate 100 mcg/m L (1 mL) 1 mL by INJECTION(UNSPECIFIED PARENTERAL ROUTES) route two times a day. 60 mL 2 08/27/2023 11/25/2023 Active octreotide (Sand oSTATIN) 100 mcg/mL injection Infuse 1 mL (100 mcg total) into a venous catheter 3 (three) times a day. 0 Active Comment on above: 1 mL by INJECTION(UN SPECIFIED PARENTERAL ROUTES) route two times a day. Inject 1 mL subcutan eously two times a day. omeprazole 40 mg delayed release oral capsule (20 sources) Proton Pump Inhibitor Start: take 1 capsule by mouth once daily omeprazole (PRILOSEC) 40 MG capsule Take 1 Capsule by mouth daily. 30 Capsule 3 11/19/2017 Active Start: 07-18-2016 End: 08-04-2022 take 40 mg by mouth twice daily Omeprazole Active 40 M G PO Twice daily April 28, 2022 11:00pm Comment on above: Take 40 mg by mouth twice daily. 2 ml ondansetron 2 mg/ml injection (20 sources) Serotonin-3 Receptor Antagonist Start: 10-27-19 End: 11-26-19 inject 4 mg by intramuscular injection every six hours as needed ondansetron (ZOFRAN) 4 mg/2 mL injection Inject 2 mL (4 mg total) into the appropriate muscle every 6 (six) hours as needed. 0 10/27/2023 11/26/2023 Active Start: 10-27-2023 End: 11-26-2023 ondansetron (Zofran) injecti on 4 mg Start: 08-17-2023 take 1 tablet by chevy th every eight hours as needed for nausea and vomiting ondansetron ODT (ZOFRAN ODT) 8 mg disintegrating tablet Dissolve 1 tablet (8 mg total) on tongue every 8 (eight) hours as needed for nausea or vomiting. 0 08/17/2023 Active Start: 06-12-2023 End: 06-27-2023 take 1 tablet by mouth every eight hours as needed ondansetron orally disintegrating (ZOFRAN ODT) 4 mg disintegrating tablet Take 1 tablet by mouth every 8 hours as needed for nausea/vomiting for up to 15 days. 45 tablet 0 06/12/2023 06/27/2023 Active Start: 04-12-2023 End: 04-19-2023 take 1 tablet by mouth every six hours as needed ondansetron (ZOFRAN) 4 mg tablet Take 1 tablet by mouth every 6 hours as needed for up to 7 days. 20 tablet 0 04/12/2023 04/19/2023 Active Start: 09-12-2022 inject 8 mg intraven ously every eight hours as needed for nausea ondansetron, PF, (ZOFRAN) 4 mg/2 mL soln Indications: Nausea and vomiting, unspecified vomiting type Inject 8 mg intravenously every 8 hours as needed for nausea/vomiting. 80 mL 0 09/12/2022 Active Start: 08-12-2022 End: 08-12-2022 ondansetron (PF) 8 mg inject ion (ZOFRAN) Start: 08-01-2022 take 1 tablet by chevy th every eight hours as needed ondansetron (ZOFRAN) 4 mg tablet Take 1 tablet by mouth every 8 hours as needed for nausea/vomiting. 15 tablet 0 08/01/2022 Active Start: 07-18-2022 End: 08-04-2022 inject 4 mg intravenously every eight hours as needed for nausea ondansetron (ZOFRAN) 2 mg/mL injection Indications: Intractable abdominal pain , Nausea and vomiting, unspecified vomiting type Inject 4 mg intravenously every 8 hours as needed for nausea/vomiting. Flush IV line with 10ml normal saline before and after giving the Ondansetron. 60 mL 1 07/18/2022 08/04/2022 Discontinued Start: 06-18-2022 End: 06-22-2022 take 1 tablet by mouth every six hours as needed ondansetron (ZOFRAN) 4 mg tablet Take 1 tablet by mouth every 6 hours as needed for up to 4 days. 12 tablet 0 06/18/2022 06/22/2022 Active Start: 05-09-2022 Ondansetron HC l - 4 MG/2ML Injection Solution Inject over 2 minutes for nausea/vomiting Quantity: 1 Refills: 1 Ordered: 09-May-2022 Brittany Bose MD Start : 09-May-2022 Active to be given at [place] Start: 05-04-2022 End: 06-03-2023 Ondansetron Discontinued 8 M G TRANSLINGU Every 8 hours May 04, 2022 8:13am June 03, 2023 11:28am Start: 05-04-2022 Ondansetron Ac tive 8 MG TRANSLINGU Every 8 hours May 04, 2022 9:13am Start: 04-29-2022 End: 05-04-2022 Ondansetron Discontinued 8 M G TRANSLINGU Every 8 hours April 28, 2022 11:00pm May 04, 2022 8:13am Start: 04-25-2022 take 1 tablet by chevy th every four hours as needed ondansetron 8 mg oral tablet, disintegrating ; 1 tab(s) orally every 4 hours, As Needed -for nausea and vomiting - .Patient Location Quantity: 30 Refills: 0 Ordered: 25-Apr-2022 Jonathan Weems Start: 25-Apr-2022 Generic Substitution Allowed Start: 12-13-2021 Ondansetron 4 MG Oral Tablet Disintegrating 1-2 tablets every 6-8 hours as needed for nausea Quantity: 60 Refills: 1 Ordered: 13-Dec-2021 Brittany Bose MD Start : 13-Dec-2021 Active Start: 05-24-2021 End: 12-19-2021 take 1 tablet by mouth every eight hours Ondansetron 8 MG Oral Tablet Disintegrating TAKE 8 MG Every 8 hours PRN Quantity: 90 Refills: 3 Ordered: 24-May-2021 Brittany Bose MD Start : 24-May-2021 End : 19-Dec-2021 Complete Comment on above: Take 1 tablet by chevy th every 6 hours as needed for up to 4 days. Inject 4 mg intraven ously every 8 hours as needed for nausea/vomiting. Flush IV line with 10ml normal saline before and after giving the Ondansetron. Take 1 tablet by chevy th every 8 hours as needed for nausea/vomiting. Inject 8 mg intraven ously every 8 hours as needed for nausea/vomiting. Take 1 tablet by chevy th every 6 hours as needed for up to 7 days. Take 1 tablet by chevy th every 8 hours as needed for nausea/vomiting for up to 15 days. 12 hr orphenadrine citrate 100 mg extended release oral tablet (1 source) Muscle Relaxant Start: 04-25-20 22 take 1 tablet by mouth twice daily orphenadrine 100 mg oral tablet, extended release ; 1 tab(s) orally 2 times a day Quantity: 0 Refills: 0 Ordered: 25-Apr-2022 Jonathan Weems Start: 25-Apr-2022 Generic Substitution Allowed oxyCODONE hydrochloride 5 mg oral tablet (20 sources) Opioid Agonist Start: 10-23-19 24 take 5 mg by mouth every six hours Oxycodone Active 5 MG PO Q6H 10 3 October 23, 2023 Start: 04-28-2023 End: 05-01-2023 take 7.5 mL by mouth every six hours oxyCODONE 5 mg/5 mL oral solution ; 7.5 milliliter(s) orally every 6 hours Quantity: 120 Refills: 0 Ordered: 28-Apr-2023 Mike Lawler Start: 28-Apr-2023 End: 01-May-2023 Generic Substitution Allowed Comments: Caution federal law prohibits the transfer of this drug to any person other than the person for whom it was prescribed.May cause drowsiness or dizziness.This prescription cannot be refilled.Using more of this medication than prescribed may cause serious breathing problems. Start: 08-08-2022 End: 09-07-2022 take 1 tablet by mouth twice daily for pain oxyCODONE myristate (XTAMPZA ER) 9 mg CSpT Indications: Diarrhea due to malabsorption , H/O gastric bypass , Chronic pain syndrome , Generalized abdominal pain , Intercostal neuralgia , Encounter for therapeutic drug level monitoring take 1 tab PO BID for severe pain for 1 month. This prescription should last at least 1 month. It will not be refilled early under any circumstances. By filling this prescription, the patient hereby agrees to abide completely by the [facility] opioid agreement in all aspects 60 Each 0 08/08/2022 09/07/2022 Active Start: 08-08-2022 oxyCODONE IR ( ROXICODONE) 5 mg immediate release tablet Indications: Diarrhea due to malabsorption , H/O gastric bypass , Chronic pain syndrome , Generalized abdominal pain , Intercostal neuralgia , Encounter for therapeutic drug level monitoring Tapering Rx: Take 0.5 (one-half) to 1 (one) tab PO BID prn severe pain x 7 days, then take 0.5 (one-half) tab PO BID prn pain x 7 days, then take 0.5 (one-half) tab PO daily prn severe pain x 7 days, then off completely. This prescription should last at least 3 weeks. It will not be refilled early under any circumstances. By filling this prescription, the patient hereby agrees to abide completely by the [facility] opioid agreement in all aspects 25 tablet 0 08/08/2022 Suspended Start: 08-04-2022 End: 08-08-2022 take 1 tablet by mouth every eight hours as needed oxyCODONE IR (ROXICODONE) 5 mg immediate release tablet Indications: Marginal ulcer Take 1 to 2 tablets by mouth every 8 hours as needed for pain. 10 tablet 0 08/04/2022 08/08/2022 Discontinued Start: 04-29-2022 take 7.5 mg by mouth every four to six hours Oxycodone Active 7.5 MG PO EVERY 4-6 HOURS April 29, 2022 12:00am Start: 04-29-2022 End: 10-23-2023 take 10 mg by mouth every four to six hours Oxycodone Discontinued 10 MG PO EVERY 4-6 HOURS April 28, 2022 11:00pm October 23, 2023 12:53pm Start: 04-25-2022 End: 08-08-2022 take 5 mL by mouth every six hours as needed for pain oxyCODONE (ROXICODONE) 5 mg/5 mL oral solution Indications: Intractable abdominal pain Take 5 mL by mouth every 6 hours as needed for pain. 473 mL 0 07/01/2022 08/08/2022 Discontinued Start: 04-11-2022 take 5 mL by mouth e very four hours as needed for pain oxyCODONE (ROXICODONE) 5 mg/5 mL oral solution Indications: Postoperative complications Take 5 mL by mouth every 4 hours as needed for pain. 120 mL 0 08/15/2022 Active Start: 12-19-2021 take 5 mL by mouth e very six hours oxyCODONE HCl - 5 MG/5ML Oral Solution TAKE 5 ML Every 6 hours PRN pain alternate with tylenol and heating pad Quantity: 140 Refills: 0 Ordered: 19-Dec-2021 Brittany Bose MD Start : 19-Dec-2021 Active Start: 05-22-2021 take 1-2 tablets by mouth every four to six hours as needed oxyCODONE HCl - 5 MG Oral Tablet 1-2 tabs every 4-6 hours prn Quantity: 0 Refills: 0 Ordered: 22-May-2021 DO Start : 22-May-2021 Active take 1 capsule by mo uth every six hours as needed oxyCODONE 5 mg oral capsule ; 1 cap(s) orally every 6 hours, As Needed Quantity: 0 Refills: 0 Ordered: 25-May-2021 Carmine Rowan Generic Substitution Allowed Comment on above: Take 5 mg by mouth e very 4 hours as needed for pain. Take 5 mL by mouth e very 6 hours as needed for pain. Take 1 to 2 tablets by mouth every 8 hours as needed for pain. take 1 tab PO BID fo r severe pain for 1 month. This prescription should last at least 1 month. It will not be refilled early under any circumstances. By filling this prescription, the patient hereby agrees to abide completely by the [facility] opioid agreement in all aspects Tapering Rx: Take 0. 5 (one-half) to 1 (one) tab PO BID prn severe pain x 7 days, then take 0.5 (one-half) tab PO BID prn pain x 7 days, then take 0.5 (one-half) tab PO daily prn severe pain x 7 days, then off completely. This prescription should last at least 3 weeks. It will not be refilled early under any circumstances. By filling this prescription, the patient hereby agrees to abide completely by the [facility] opioid agreement in all aspects Take 5 mL by mouth e very 4 hours as needed for pain. Caution federal law prohibits the transfer of this drug to any person other than the person for whom it was prescribed.May cause drowsiness or dizziness.This prescription cannot be refilled.Using more of this medication than prescribed may cause serious breathing problems. Take 7.5 mg by mouth as needed for pain. Every 4-6 hours ozempic (0.25 or 0.5 mg/dose) 2 mg/3ml solution pen-injector (1 source) Ozempic (0.25 or 0.5 MG/DOSE) 2 MG/3ML inject 0.5 milligram subcutaneously every week Subcutaneous for 28 Days Active predniSONE 10 mg oral tablet (1 source) Start: End: take 2 tablets by mouth once daily, then take 1 tablet by mouth once daily predniSONE (STERAPRED DS) 10 mg tablet pack Take 2 tablets (20 mg total) by mouth daily for 3 days, THEN 1 tablet (10 mg total) daily for 3 days. 6 tablet 0 11/18/2023 11/24/2023 Active prochlorperazine 10 mg oral tablet (20 sources) Phenothiazine Start: End: take 1 tablet by mouth every six hours as needed prochlorperazine (COMPAZINE) 10 mg tablet Take 1 tablet by mouth every 6 hours as needed for up to 15 days. 2nd line if the zofran is NOT enough to control nausea and vomiting 45 tablet 0 06/12/2023 06/27/2023 Active Start: 06-30-2022 End: 08-31-2022 take 2 tablets by mouth every six hours as needed prochlorperazine (COMPAZINE) 5 mg tablet Take 2 tablets by mouth every 6 hours as needed. 120 tablet 0 08/01/2022 08/31/2022 Active Start: 05-08-2022 take 1 tablet by chevy th every six hours as needed for nausea and vomiting prochlorperazine (COMPAZINE) 5 mg tablet Take 1 tablet (5 mg total) by mouth every 6 (six) hours as needed for nausea or vomiting. 30 tablet 0 05/08/2022 Active Comment on above: Take 2 tablets by mo ut every 6 hours as needed. Take 1 tablet by chevy th every 6 hours as needed for up to 15 days. 2nd line if the zofran is NOT enough to control nausea and vomiting promethazine hydrochloride 25 mg oral tablet (20 sources) Phenothiazine Start: 11-04-19 take 25 mg by mouth three times daily Promethazine Active 25 MG PO Three times daily 15 November 04, 2023 12:00am Start: 10-28-2023 Promethazine A ctive 25 MG IA EVERY 4-6 HOURS October 28, 2023 12:00am Start: 10-27-2023 End: 11-26-2023 promethazine (Phenergan) inj ection 25 mg Start: 04-25-2022 End: 08-31-2023 take 25 mg by mouth every eight hours Promethazine Active 25 MG PO Every 8 hours April 28, 2022 11:00pm Start: 12-19-2021 End: 01-31-2022 take 5-10 mL by mouth every four to six hours as needed for nausea Promethazine HCl - 6.25 MG/5ML Oral Solution Take 5-10mL PO every 4-6 hours as needed for nausea Quantity: 140 Refills: 0 Ordered: 19-Dec-2021 Brittany Bose MD Start : 19-Dec-2021 End : 31-Jan-2022 Complete Start: 05-24-2021 Promethazine H Cl - 25 MG Rectal Suppository INSERT 1 SUPPOSITORY RECTALLY EVERY 12 HOURS NEEDED FOR NAUSEA AND VOMITING. Quantity: 60 Refills: 0 Ordered: 24-May-2021 Brittany Bose MD Start : 24-May-2021 Active Start: 05-22-2021 take 1 tablet by chevy th every six hours Promethazine HCl - 25 MG Oral Tablet TAKE 1 TABLET EVERY 6 HOURS NEEDED FOR NAUSEA. Quantity: 0 Refills: 0 Ordered: 22-May-2021 DO Start : 22-May-2021 Active take 10 mL by mouth every six hours as needed promethazine 6.25 mg/5 mL oral syrup ; 10 milliliter(s) orally every 6 hours, As Needed - for nausea and vomiting Quantity: 0 Refills: 0 Ordered: 23-Apr-2022 Jana Heaton Generic Substitution Allowed Comment on above: Take 1 tablet by chevy th every 8 hours as needed (for nausea). Take 1 tablet by chevy th every 8 hours as needed (for nausea) for up to 14 days. Psyllium Seed (Sugar) (Metamucil N[place]on) powder (8 sources) Start: 05-04-2022 Psyllium Seed (Sugar) (Metamucil Noxon) powder Active 1 TBSP PO Twice daily May 04, 2022 8:12am Start: 05-04-2022 Psyllium Seed (Sugar) (Metamucil N[place]on) powder Active 1 TBSP PO Twice daily May 04, 2022 9:12am rimegepant 75 mg disintegrating oral tablet (3 sources) Start: 11-12-2022 take 1 tablet by mouth every other day Rimegepant Sulfate (Nurtec) 75 MG tablet dispersible 1 tablet orally every other day 0 11/12/2022 Active 0.25 mg, 0.5 mg dose 1.5 ml semaglutide 1.34 mg/ml pen injector (20 sources) Start: 03-24-2023 End: 08-27-2023 inject 0.5 mg by subcutaneous injection every week semaglutide (Ozempic) 2 MG/1.5ML solution pen-injector Indications: Type 2 diabetes mellitus without complication, without long-term current use of insulin ([facility]) Inject 0.5 mg under the skin 1 (one) time per week. 1 each 03/24/2023 Active Comment on above: Inject 0.5 mg subcut aneously one time a week. sertraline 50 mg oral tablet (2 sources) Serotonin Reuptake Inhibitor Sertraline HCl 50 MG Oral for 30 Days Active Sertraline HCl 5 0 MG Oral for 30 Days Active 5 ml sodium chloride 9 mg/ml injection (5 sources) Start: 10-27-2023 sodium chlorid e 0.9% (NS) 0.9 % flush Indications: PIC line (peripherally inserted central catheter) flush Infuse 5 mL into a venous catheter if needed for line care 150 mL 0 10/27/2023 Active Start: 10-27-2023 sodium chlorid e 0.9% (NS) 0.9 % flush Indications: PIC line (peripherally inserted central catheter) flush Infuse 5 mL into a venous catheter if needed for line care 150 mL 0 10/27/2023 Active Start: 08-12-2022 End: 08-12-2022 NaCl 0.9% 2,000 mL iv bolus Start: 05-20-2022 End: 11-18-2023 sodium chloride (NORMAL SALI NE FLUSH) injection Infuse 10 mL into a venous catheter in the morning and at bedtime. 3000 mL 3 05/20/2022 11/18/2023 Discontinued (Therapy completed) sucralfate 1000 mg oral tablet (20 sources) Aluminum Complex Start: 11-04-2023 take 1 tablet by mouth twice daily Sucralfate (Carafate) 1 gram tablet Active 1 GM PO Twice daily November 04, 2023 8:02am Start: 06-16-2022 End: 09-14-2022 take 10 mL by mouth at bedtime sucralfate (CARAFATE) 1 00 mg/mL suspension Take 10 mL by mouth before meals and at bedtime. 3600 mL 0 06/16/2022 08/04/2022 Discontinued Start: 05-08-2022 End: 04-22-2023 take 1 tablet by mouth at bedtime sucralfate (CARAFATE) 1 gram tablet Take 1 tablet by mouth before meals and at bedtime for 10 days. 40 tablet 0 04/12/2023 04/22/2023 Active Start: 04-25-2022 End: 05-24-2022 take 10 mL by mouth four times daily sucralfate 1 g/10 mL oral suspension ; 10 milliliter(s) orally 4 times a day -.Patient Location Quantity: 1200 Refills: 0 Ordered: 25-Apr-2022 Jonathan Weems Start: 25-Apr-2022 End: 24-May-2022 Generic Substitution Allowed Start: 05-30-2021 End: 06-28-2021 sucralfate 1 g/10 mL oral [place] spension ; 10 milliliter(s) orally 4 times a day - 4 Times a Day Before Meals Quantity: 120 Refills: 0 Ordered: 30-May-2021 Jose Ayala Start: 30-May-2021 End: 28-Jun-2021 Status: Discontinued Generic Substitution Allowed Comment on above: Take 10 mL by mouth before meals and at bedtime. Take 1 tablet by chevy th before meals and at bedtime for 10 days. sulfamethoxazole 800 mg / trimethoprim 160 mg oral tablet (5 sources) Dihydrofolate Reductase Inhibitor Antibacterial, Sulfonamide Antimicrobial Start: 08-11-20 End: 08-21-20 take 1 tablet by mouth twice daily sulfamethoxazole- trimethoprim (BACTRIM DS) 800-160 mg per tablet Take 1 tablet by mouth twice daily for 10 days. 6 tablet 0 08/11/2022 08/21/2022 Suspended Comment on above: Take 1 tablet by chevy th twice daily for 10 days. tiZANidine 4 mg oral tablet (20 sources) Central alpha-2 Adrenergic Agonist Start: 09-15-19 take 1.5 tablets by mouth every eight hours for muscle spasms tiZANidine (Zanaflex) 4 MG tablet Indications: Chronic pain syndrome Take 1.5 tablets (6 mg) by mouth every 8 (eight) hours if needed for muscle spasms 135 tablet 2 09/15/2023 Active Start: 06-12-2023 take 1 tablet by chevy th every eight hours as needed tiZANidine (ZANAFLEX) 4 mg tablet Take 1 tablet by mouth every 8 hours as needed. 0 06/12/2023 Active Start: 06-03-2023 End: 10-23-2023 take 6 mg by mouth every six hours Tizanidine Discontinued 6 MG PO Q6H June 02, 2023 11:00pm October 23, 2023 12:53pm Start: 06-03-2023 take 4 mg by mouth e very four hours Tizanidine Active 4 MG PO Q4H June 03, 2023 12:00am unsure of frequency Start: 10-30-2022 End: 11-29-2022 take 1 tablet by mouth every eight hours as needed for muscle spasms and muscle spasms tiZANidine (ZANAFLEX) 4 mg tablet Indications: Muscle spasm Take 1 tablet by mouth every 8 hours as needed. 90 tablet 0 10/30/2022 11/29/2022 Active Start: 09-30-2022 take 1 tablet by chevy th every eight hours as needed for muscle spasms and muscle spasms tiZANidine (ZANAFLEX) 4 mg tablet Indications: Muscle spasm Take 1 tablet by mouth every 8 hours as needed. 15 tablet 0 09/30/2022 Active Start: 08-29-2022 End: 09-28-2022 take 1 tablet by mouth every eight hours as needed for muscle spasms and muscle spasms tiZANidine (ZANAFLEX) 4 mg tablet Indications: Muscle spasm Take 1 tablet by mouth every 8 hours as needed. 90 tablet 0 08/29/2022 09/28/2022 Active Comment on above: Take 1 tablet by [facility] every 8 hours as needed. traZODone hydrochloride 100 mg oral tablet (10 sources) Serotonin Reuptake Inhibitor Start: take 100 mg by mouth at bedtime Trazodone Active 100 MG PO Bedtime October 08, 2023 12:00am Start: 09-22-2023 End: 11-21-2023 take 1 tablet by mouth at bedtime traZODone (Desyrel) 50 MG tablet Indications: Insomnia, unspecified type Take 1 tablet (50 mg) by mouth at bedtime 30 tablet 1 09/22/2023 10/27/2023 Discontinued (Other) venlafaxine 75 mg oral tablet (20 sources) Serotonin and Norepinephrine Reuptake Inhibitor Start: 10-27-2023 venlafaxine (Effexor ) 75 MG tablet Indications: Moderate episode of recurrent major depressive disorder (HCC) (CMS/HCC) Take one tablet in am daily 30 tablet 1 10/27/2023 Active Start: 10-27-2023 venlafaxine (E ffexor) 75 MG tablet Indications: Moderate episode of recurrent major depressive disorder (HCC) (CMS/HCC) Take one tablet in am daily 30 tablet 1 10/27/2023 Active Start: 10-08-2023 End: 10-23-2023 Venlafaxine Discontinued MG PO October 08, 2023 12:00am October 23, 2023 12:53pm Start: 09-30-2023 take 1 capsule by [facility] once daily venlafaxine ER (EFFEXOR XR) 75 mg 24 hr capsule Take 1 capsule by mouth once daily. 30 capsule 2 09/30/2023 Active Start: 08-26-2023 End: 10-27-2023 take 75 mg by mouth once daily Venlafaxine Active 75 M G PO Daily October 08, 2023 12:00am Start: 08-08-2022 End: 08-19-2022 take 0.5 tablet by mouth once in the morning, then take 0.5 tablet by mouth twice daily, then take 1 tablet by mouth twice daily venlafaxine (EFFEXOR) 25 mg tablet Indications: Diarrhea due to malabsorption , H/O gastric bypass , Chronic pain syndrome , Generalized abdominal pain , Intercostal neuralgia , Encounter for therapeutic drug level monitoring Take 0.5 (one-half) tab PO in the morning x 7 days, then increase to Take 0.5 (one-half) tab PO BId x 7 days, then increase to 1 tab PO BID 60 tablet 5 08/08/2022 08/19/2022 Discontinued (Side Effects) take 1 capsule by mo ut every twenty-four hours in the morning venlafaxine XR (EFFEXOR XR) 75 mg 24 hr capsule Indications: anxiety with depression Take 1 capsule (75 mg total) by mouth in the morning. Indications: anxiousness associated with depression. 0 Active take 37.5 mg by mout h once daily venlafaxine XR (EFFEXOR XR) 37.5 mg tr24 Take 37.5 mg by mouth once daily. 0 Active Comment on above: Take 0.5 (one-half) tab PO in the morning x 7 days, then increase to Take 0.5 (one-half) tab PO BId x 7 days, then increase to 1 tab PO BID Take 37.5 mg by mout h once daily. Take 1 capsule by mo [facility] once daily. Vitamin B Complex (B Complex-Vitamin B12) tablet (4 sources) Start: 10-08-2023 take 1 tablet by mouth once daily Vitamin B Complex (B Complex-Vitamin B12) tablet Active 1 TAB PO Daily October 08, 2023 12:00am vitamin b12 1 mg/ml injectable solution (20 sources) Vitamin B12 Start: 05-22-2021 Vitamin B-12 500 MCG Sublingual Tablet Sublingual Quantity: 0 Refills: 0 Ordered: 22-May-2021 DO Start : 22-May-2021 Active Start: 06-24-2017 inject 1000 ug by in tramuscular injection every week Cyanocobalamin (Vitamin B-12) (Dodex) 1,000 mcg/mL solution Active 1000 MCG IM every week April 28, 2022 11:00pm Start: 07-18-2016 End: 06-16-2022 take 1 tablet by mouth once daily cyanocobalamin ([facility] VITAMIN B12) 1000 MCG tablet Take 1 Tablet by mouth daily. 30 Tablet 3 11/19/2017 Active cyanocobalamin, vitamin B-12, (B-12 COMPLIANCE) 1,000 mcg/mL kit 1 mL by INJECTION(UNSPECIFIED PARENTERAL ROUTES) route one time a week. 0 Active inject 1 mL by intra muscular injection two times weekly cyanocobalamin 1000 mcg/mL injectable solution ; 1 milliliter(s) intramuscularly 2 times a week on and Saturdays Quantity: 0 Refills: 0 Ordered: 23-Apr-2022 Jana Heaton Generic Substitution Allowed take 1 tablet by mouth every k B-12 1000 mcg oral tablet ; 1000 microgram(s) injectable once a week-THURSDAY Quantity: 0 Refills: 0 Ordered: 25-May-2021 Carmine Rowan Generic Substitution Allowed Comment on above: 1 mL by INJECTION(UNSPECIFIED PARENTERAL ROUTES) route one time a week. Zinc (4 sources) Start: 4 take 200 mg by mouth once daily Zinc Active 200 MG PO Daily October 08, 2023 12:00am zinc-vit C-pyridoxine, vit B6, 12-60-0.5 mg lozenge (1 source) Start: 4 zinc-vit C-pyridoxine, vit B6, 12-60-0.5 mg lozenge Daily 0 10/08/2023 Active Completed/Discontinued Medications Medication Drug Class(es) Dates Sig (Normalized) Sig (Original) acetaminophen 325 mg oral tablet (20 sources) Start: 04-22-2023 take 2 tablets by mouth every six hours as needed acetaminophen (TYLENOL) 325 mg tablet Take 2 tablets by mouth every 6 hours as needed for pain. 0 04/22/2023 Active Start: 04-12-2023 take 2 tablets by mo uth every six hours as needed acetaminophen (TYLENOL) 325 mg tablet Take 2 tablets by mouth every 6 hours as needed for pain. 0 04/12/2023 Active Start: 05-09-2022 Acetaminophen 650 MG Rectal Suppository INSERT 1 SUPPOSITORY RECTALLY EVERY 4 TO 6 HOURS NEEDED. Quantity: 180 Refills: 1 Ordered: 09-May-2022 Brittany Bose MD Start : 09-May-2022 Active Comment on above: Take 2 tablets by mo uth every 6 hours as needed for pain. acetaminophen 21.7 mg/ml / HYDROcodone bitartrate 0.5 mg/ml oral solution (1 source) Opioid Agonist Start: 2 End: 4 take 15 mL by mouth every four hours as needed HYDROcodone-acetamino phen (HYCET) 7.5-325 mg/15 mL solution Take 15 mL by mouth every 4 (four) hours as needed. 0 04/14/2022 11/18/2023 Discontinued (Therapy completed) alteplase (CATHFLO) 2 mg injection (5 sources) Start: 2 End: 2 alteplase (CATHFLO) 2 mg injection Indications: PICC (peripherally inserted central catheter) in place 2 mL by INTRALUMINAL route as needed. Instill 2mg into occluded port . May repeat x1 if needed. If after second dose line remains occluded please call physicians office. 2 Each 0 07/24/2022 08/04/2022 Discontinued Start: 07-24-2022 alteplase (CAT HFLO) 2 mg injection Indications: PICC (peripherally inserted central catheter) in place 2 mL by INTRALUMINAL route as needed. Instill 2mg into occluded port . May repeat x1 if needed. If after second dose line remains occluded please call physicians office. 2 Each 0 07/24/2022 Suspended Start: 07-24-2022 alteplase (CAT HFLO) 2 mg injection Indications: PICC (peripherally inserted central catheter) in place 2 mL by INTRALUMINAL route as needed. Instill 2mg into occluded port . May repeat x1 if needed. If after second dose line remains occluded please call physicians office. 2 Each 0 07/24/2022 Active Comment on above: 2 mL by INTRALUMINAL route as needed. Instill 2mg into occluded port . May repeat x1 if needed. If after second dose line remains occluded please call physicians office. amitriptyline hydrochloride 25 mg oral tablet (7 sources) Tricyclic Antidepressant Start: 06-18-20 End: 07-04-20 22 take 1 tablet by mouth once daily at bedtime, then take 2 tablets by mouth once daily at bedtime amitriptyline (ELAVIL) 25 mg tablet Take 1 tablet by mouth daily at bedtime for 5 days, THEN 2 tablets daily at bedtime for 5 days. 15 tablet 0 06/18/2022 07/04/2022 Discontinued Comment on above: Take 1 tablet by chevy th daily at bedtime for 5 days, THEN 2 tablets daily at bedtime for 5 days. B COMPLEX 1, WITH FOLIC ACID, 0.4 mg tab (8 sources) Start: 12-13-19 take 1 tablet by mouth once daily B COMPLEX 1, WITH FOLIC ACID, 0.4 mg tab Indications: Malnutrition of mild degree (HCC) , History of Gelacio-en-Y gastric bypass take 1 tablet by mouth once daily 90 tablet 0 12/12/2022 Suspended Start: 12-12-2022 take 1 tablet by chevy th once daily B COMPLEX 1, WITH FOLIC ACID, 0.4 mg tab Indications: Malnutrition of mild degree (HCC) , History of Gelacio-en-Y gastric bypass take 1 tablet by mouth once daily 90 tablet 0 12/12/2022 Active Comment on above: take 1 tablet by chevy th once daily cholestyramine resin 4000 mg powder for oral suspension (20 sources) Bile Acid Sequestrant Start: 09-11-20 End: 03-28-20 take 1 dose by mouth three times daily at mealtime cholestyramine (QUESTRAN) 4 gram packet Take 1 Packet by mouth three times daily with meals. 90 Packet 2 09/11/2022 03/28/2023 Discontinued Start: 05-24-2021 take 4 g by mouth twice daily Cholestyramine 4 GM/DOSE Oral Powder MIX 1 SCOOP IN LIQUID AND DRINK TWICE DAILY. Quantity: 1 Refills: 0 Ordered: 24-May-2021 Brittany Bose MD Start : 24-May-2021 Active Comment on above: Take 1 Packet by chevy th three times daily with meals. ciprofloxacin 500 mg oral tablet (3 sources) Quinolone Antimicrobial Start: take 1 tablet by mouth twice daily Ciprofloxacin HCl - 500 MG Oral Tablet TAKE 1 TABLET TWICE DAILY. Quantity: 10 Refills: 0 Ordered: 20-Dec-2021 Brittany Bose MD Start : 20-Dec-2021 Active cyclobenzaprine hydrochloride 10 mg oral tablet (12 sources) Muscle Relaxant Start: take 1 tablet by mouth three times daily as needed Cyclobenzaprine HCl - 10 MG Oral Tablet TAKE 1 TABLET 3 TIMES DAILY NEEDED. Quantity: 20 Refills: 1 Ordered: 06-Jan-2022 [place] 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, Cecil Start : 31-Dec-2021 Active Start: 12-31-2021 take 1 tablet by chevy th three times daily as needed Cyclobenzaprine HCl - 5 MG Oral Tablet TAKE 1 TABLET 3 TIMES DAILY NEEDED. Quantity: 30 Refills: 0 Ordered: 31-Dec-2021 Leslie Tony MD Start : 31-Dec-2021 Active docusate sodium 100 mg oral capsule (7 sources) Start: 08-17-2023 End: 09-16-2023 take 1 capsule by mouth twice daily docusate sodium (COLACE) 100 mg capsule Take 1 capsule by mouth two times a day. 30 capsule 1 08/17/2023 08/27/2023 Discontinued (Discontinued by Patient) Start: 05-30-2021 End: 06-28-2021 take 1 capsule by mouth twice daily docusate sodium 100 mg oral capsule ; 1 cap(s) orally 2 times a day Quantity: 60 Refills: 0 Ordered: 30-May-2021 Jose Ayala Start: 30-May-2021 End: 28-Jun-2021 Generic Substitution Allowed Comment on above: Take 1 capsule by mo [facility] two times a day. docusate sodium 50 mg / sennosides, intermediate 8.6 mg oral tablet (20 sources) Start: 2 take 1 tablet by mouth twice daily senna-docusate (SENNA-S) 8.6-50 mg per tablet Take 1 tablet by mouth twice daily. 60 tablet 0 06/30/2022 Active Comment on above: Take 1 tablet by [facility] twice daily. esomeprazole 40 mg delayed release oral capsule (20 sources) Proton Pump Inhibitor Start: 1 take 1 capsule by mouth twice daily Esomeprazole Magnesium 40 MG Oral Capsule Delayed Release TAKE 1 CAPSULE Twice daily open capsules and sprinkle over SF pudding or applesauce. Quantity: 60 Refills: 3 Ordered: 24-May-2021 Brittany Bose MD Start : 24-May-2021 Active famotidine 20 mg oral tablet (2 sources) Histamine-2 Receptor Antagonist Start: 1 End: 1 take 1 tablet by mouth twice daily Pepcid 20 mg oral tablet ; 1 tab(s) orally 2 times a day Quantity: 60 Refills: 0 Ordered: 30-May-2021 Jose Ayala Start: 30-May-2021 End: 15-Oct-2021 Generic Substitution Allowed Comments: It is very important that you take or use this exactly as directed. Do not skip doses or discontinue unless directed by your doctor.Obtain medical advice before taking any non-prescription drugs as some may affect the action of this medication. Comment on above: It is very important that you take or use this exactly as directed. Do not skip doses or discontinue unless directed by your doctor.Obtain medical advice before taking any non-prescription drugs as some may affect the action of this medication. fluconazole 150 mg oral tablet (3 sources) Azole Antifungal Start: 2 Fluconazole 150 MG Oral Tablet TAKE 1 TABLET ONCE AND REPEAT IN 1 WEEK. Quantity: 2 Refills: 0 Ordered: 20-Dec-2021 Brittany Bose MD Start : 20-Dec-2021 Active Food Supplemt, Lactose-Reduced (Ensure Active High Protein) liquid (8 sources) Start: 2 End: 3 Food Supplemt, Lactose-Reduced (Ensure Active High Protein) liquid Discontinued 1 EACH PO Twice daily [id number] 03, 2022 11:00pm June 03, 2023 11:27am Take 1 Bottle twice a day Dispense 2 dozen bottles Start: 05-04-2022 End: 06-03-2023 Food Supplemt, Lactose-Reduc ed (Ensure Active High Protein) liquid Discontinued 1 EACH PO Twice daily [id number] 04, 2022 12:00am June 03, 2023 12:27pm Take 1 Bottle twice a day Dispense 2 dozen bottles Start: 05-04-2022 Food Supplemt, Lactose-Reduced (Ensure Active High Protein) liquid Active 1 EACH PO Twice daily [id number] 04, 2022 12:00am Take 1 Bottle twice a day Dispense 2 dozen bottles gabapentin 100 mg oral capsule (5 sources) Anti-epileptic Agent Start: 05-09-2022 take 1 capsule by mouth three times daily Gabapentin 100 MG Oral Capsule TAKE 1 CAPSULE 3 TIMES DAILY. Quantity: 21 Refills: 0 Ordered: 09-May-2022 Brittany Bose MD Start : 09-May-2022 Active Start: 12-26-2021 End: 03-25-2022 take 5 mL by mouth three times daily gabapentin 250 mg/5 mL oral solution ; 5 milliliter(s) orally 3 times a day Quantity: 450 Refills: 2 Ordered: 26-Dec-2021 Leslie Tony Start: 26-Dec-2021 End: 25-Mar-2022 Generic Substitution Allowed Start: 05-30-2021 End: 06-28-2021 take 1 capsule by mouth three times daily gabapentin 300 mg oral capsule ; 1 cap(s) orally 3 times a day Quantity: 90 Refills: 0 Ordered: 30-May-2021 Jose Ayala Start: 30-May-2021 End: 28-Jun-2021 Status: Discontinued Generic Substitution Allowed Granisetron (20 sources) Serotonin-3 Receptor Antagonist Start: 04-21-2022 granisetron HCl (KYT RIL INTRAVEN.) 300 mcg. 0 04/21/2022 Suspended Start: 04-21-2022 granisetron HC l (KYTRIL INTRAVEN.) 300 mcg. 0 04/21/2022 Active Comment on above: 300 mcg. hydrocortisone 10 mg/ml topical cream (12 sources) Corticosteroid Start: Hydrocortisone 1 % External Cream APPLY SPARINGLY AND RUB IN WELL TO AFFECTED AREA(S) DIRECTED. Quantity: 28 Refills: 0 Ordered: 31-Dec-2021 Leslie Tony MD Start : 31-Dec-2021 Active hypromellose 0.003 mg/mg ophthalmic gel (18 sources) Start: End: apply 1 drop(s) into the eye(s) once daily at bedtime Artificial Tear, Hypromellose, 0.3 % gel Use 1 Drop in both eyes daily at bedtime. please avoid using the contacts and see your eye doctor in next few days 10 g 0 06/12/2023 07/27/2023 Discontinued (Discontinued by Patient) Comment on above: Use 1 Drop in both e yes daily at bedtime. please avoid using the contacts and see your eye doctor in next few days iv contrast (will be provided with radiology test) (14 sources) Start: End: iv contrast (will be provided with radiology test) Indications: Chronic pancreatitis, unspecified pancreatitis type (HCC) , Gastric bypass status for obesity , Diarrhea, unspecified type MRI PANC/JIMBO Inject, intravenously, once for 1 dose. No IV access, insert saline lock prior to the beginning of sedation, infusion, injection of imaging exam. Discontinue saline lock post exam. If Pt. has a central line or IVAD, may access for administration according to line specific nursing protocol. Once exam is complete flush line and de-access according to line specific nursing protocol in the MR contrast administration guidelines link. 1 Each 0 06/30/2023 07/27/2023 Discontinued (Discontinued by Patient) Start: 06-30-2023 iv contrast (w ill be provided with radiology test) Indications: Chronic pancreatitis, unspecified pancreatitis type (HCC) , Gastric bypass status for obesity , Diarrhea, unspecified type MRI PANC/JIMBO Inject, intravenously, once for 1 dose. No IV access, insert saline lock prior to the beginning of sedation, infusion, injection of imaging exam. Discontinue saline lock post exam. If Pt. has a central line or IVAD, may access for administration according to line specific nursing protocol. Once exam is complete flush line and de-access according to line specific nursing protocol in the MR contrast administration guidelines link. 1 Each 0 06/30/2023 Active Start: 06-16-2022 End: 06-16-2022 inject 1 dose intravenously once iv contrast (will be provided with radiology test) Indications: Adverse effect of treatment, initial encounter , Marginal ulcer CTA ABD/PEL - No IV access, insert saline lock prior to the sedation, infusion, injection for imaging exam. Discontinue saline lock post exam. If Pt. has a central line or IVAD, may access for administration according to line specific nursing protocol. Once exam is complete flush line and de-access according to line specific nursing protocol in the CT contrast administration guidelines link. 1 Each 0 06/16/2022 06/16/2022 Discontinued Comment on above: CTA ABD/PEL - No IV access, insert saline lock prior to the sedation, infusion, injection for imaging exam. Discontinue saline lock post exam. If Pt. has a central line or IVAD, may access for administration according to line specific nursing protocol. Once exam is complete flush line and de-access according to line specific nursing protocol in the CT contrast administration guidelines link. MRI PANC/JIMBO Inject, intravenously, once for 1 dose. No IV access, insert saline lock prior to the beginning of sedation, infusion, injection of imaging exam. Discontinue saline lock post exam. If Pt. has a central line or IVAD, may access for administration according to line specific nursing protocol. Once exam is complete flush line and de-access according to line specific nursing protocol in the MR contrast administration guidelines link. lactobacillus rhamnosus gg [id number] unt oral capsule (20 sources) Start: 09-30-19 take 1 capsule by mouth once daily lactobacillus rhamnosus (CULTURELLE) 10 billion cell capsule Take 1 capsule by mouth once daily. 30 capsule 0 09/30/2022 Active Start: 08-11-2022 End: 08-25-2022 take 1 capsule by mouth once daily lactobacillus rhamnosus (CULTURELLE) 10 billion cell capsule Take 1 capsule by mouth once daily for 14 days. 14 capsule 0 08/11/2022 Active Comment on above: Take 1 capsule by mo uth once daily for 14 days. Take 1 capsule by mo uth once daily. lactulose 667 mg/ml oral solution (6 sources) Osmotic Laxative Start: 2022 End: 2022 take 60 mL by mouth once daily as needed for constipation lactulose 20 gram/30 mL solution Take 60 mL by mouth once daily as needed. for constipation despite use of colace/senna/mirala x 300 mL 2 08/17/2023 08/27/2023 Discontinued (Discontinued by Patient) Comment on above: Take 60 mL by mouth once daily as needed. for constipation despite use of colace/senna/miralax lisdexamfetamine dimesylate 60 mg oral capsule (15 sources) Central Nervous System Stimulant Start: 2021 Vyvanse 60 MG Oral Capsule Quantity: 0 Refills: 0 Ordered: 19-Dec-2021 DO Start : 19-Dec-2021 Active loperamide hydrochloride 2 mg oral capsule (16 sources) Opioid Agonist Start: 2022 End: 2022 take 2-4 mg by mouth every eight hours as needed loperamide (IMODIUM) 2 mg cap(s) Take 1-2 capsules by mouth three times a day as needed for diarrhea (for diarrhea> 3 times a day) for up to 15 days. 45 capsule 1 06/12/2023 07/27/2023 Discontinued (Patient chooses alternative therapy) Comment on above: Take 1-2 capsules by mouth three times a day as needed for diarrhea (for diarrhea> 3 times a day) for up to 15 days. methocarbamol 750 mg oral tablet (20 sources) Muscle Relaxant Start: 2021 End: 2021 take 1 tablet by mouth three times daily methocarbamol (ROBAXIN-750) 750 mg tablet Take 1 tablet by mouth three times daily. 15 tablet 0 08/01/2022 08/29/2022 Discontinued (Course of therapy completed) Start: 05-05-2022 End: 11-18-2023 take 1 tablet by mouth every eight hours as needed methocarbamol (ROBAXIN) 500 mg tablet Take 1 tablet by mouth three times daily as needed. 20 tablet 0 06/30/2022 07/04/2022 Discontinued Start: 04-29-2022 End: 06-03-2023 take 500 mg by mouth every eight hours Methocarbamol Discontinued 500 MG PO Every 8 hours April 28, 2022 11:00pm June 03, 2023 11:29am Start: 01-09-2017 take 1 tablet by chevy th four times daily methocarbamol (ROBAXIN) 500 MG tablet TAKE 1 TABLET BY MOUTH 4 TIMES DAILY. 120 Tablet 3 01/09/2017 Active Comment on above: Take 1 tablet by chevy th three times daily as needed. Take 1 tablet by chevy th three times daily. metroNIDAZOLE 500 mg oral tablet (4 sources) Nitroimidazole Antimicrobial Start: 10-08-19 End: 10-23-19 take 500 mg by mouth every twenty-four hours Metronidazole Discontinued 500 MG PO Q24H October 08, 2023 12:00am October 23, 2023 12:53pm MULTI-VITAMIN ORAL (20 sources) take 1 tablet by mouth once daily MULTI-VITAMIN ORAL Take 1 tablet by mouth once daily. 0 Active take 1 tablet by mouth once black y MULTI-VITAMIN ORAL Take 1 tablet by mouth once daily. 0 Suspended Comment on above: Take 1 tablet by chevy th once daily. Multiple Vitamins/Womens Oral Tablet (20 sources) Start: 05-22-2021 take 1 tablet by mouth once daily Multiple Vitamins/Womens Oral Tablet TAKE 1 TABLET DAILY. Quantity: 0 Refills: 0 Ordered: 22-May-2021 DO Start : 22-May-2021 Active Start: 05-22-2021 Multiple Vitam ins/Womens Oral Tablet Quantity: 0 Refills: 0 Ordered: 22-May-2021 DO Start : 22-May-2021 Active naloxone hydrochloride 40 mg/ml nasal spray (20 sources) Opioid Antagonist Start: 08-01-2022 naloxone 4 mg/actuation nasal spray (NARCAN) Use 1 spray in one nostril as needed for overdose. May repeat every 2 to 3 min in alternating nostrils until medical assistance is available 1 Each 0 08/01/2022 Active Comment on above: Use 1 spray in one n ostril as needed for overdose. May repeat every 2 to 3 min in alternating nostrils until medical assistance is available [email or web address] [id number] (PEPTAMEN 1.5 DELMY WITH PREBIO1) 0.068 gram- 1.5 kcal/mL liqd (19 sources) Start: 08-17-2023 nut.tx.[email or web address] [id number] (PEPTAMEN 1.5 DELMY WITH PREBIO1) 0.068 gram- 1.5 kcal/mL liqd peptamen 1.5 or equivalents: total calories: 1210/ day(22 hours), tf goal rate: 55/hr, water flushes: 150 ml every 4 hours, diet: regular diet, hold 1 hour before and after the synthroid 1000 mL 3 08/17/2023 Active Comment on above: peptamen 1.5 or equi valents: total calories: 1210/ day(22 hours), tf goal rate: 55/hr, water flushes: 150 ml every 4 hours, diet: regular diet, hold 1 hour before and after the synthroid nystatin [id number] unt/ml topical cream (20 sources) Polyene Antifungal nystatin crea m Apply to affected area twice daily. 0 Suspended Comment on above: Apply to affected ar ea twice daily. OLANZapine 5 mg oral tablet (20 sources) Atypical Antipsychotic Start: 07-27-2023 End: 08-26-2023 take 1 tablet by mouth once daily at bedtime OLANZapine (ZYPREXA) 5 mg tablet Take 1 tablet by mouth daily at bedtime. 30 tablet 0 07/27/2023 Active Comment on above: Take 1 tablet by chevy th daily at bedtime. pantoprazole 40 mg delayed release oral tablet (20 sources) Proton Pump Inhibitor Start: 04-23-2023 take 1 tablet by mouth once daily pantoprazole DR (PROTONIX) 40 mg tablet Take 1 tablet by mouth once daily. 0 04/23/2023 Active Start: 04-12-2023 End: 05-12-2023 take 1 tablet by mouth twice daily before mealtime pantoprazole DR (PROTONIX) 40 mg tablet Take 1 tablet by mouth twice daily before meals (0600/1600). 60 tablet 0 04/12/2023 05/12/2023 Active Start: 08-02-2022 End: 02-11-2023 take 1 tablet by mouth once daily, then take 6 tablets by mouth in the morning pantoprazole DR (PROTONIX) 40 mg tablet Take 1 tablet by mouth DAILY (6 AM). 90 tablet 1 08/15/2022 Suspended Start: 05-04-2022 pantoprazole ( PROTONIX) [address] for susp in packet daily. 0 05/04/2022 Active Start: 04-25-2022 End: 07-23-2022 take 1 dose by mouth twice daily Pantoprazole Sodium 4 0 MG Oral Packet TAKE 1 PACKET Twice daily Quantity: 60 Refills: 2 Ordered: 30-Apr-2022 Brittany Bose MD Start : 30-Apr-2022 Active Start: 05-30-2021 End: 06-28-2021 take 1 tablet by mouth twice daily pantoprazole 40 mg oral delayed release tablet ; 1 tab(s) orally 2 times a day Quantity: 60 Refills: 0 Ordered: 30-May-2021 Jose Ayala Start: 30-May-2021 End: 28-Jun-2021 Generic Substitution Allowed Comment on above: Take 1 tablet by chevy th DAILY (6 AM). Take 1 tablet by chevy th twice daily before meals (0600/1600). Take 1 tablet by chevy th once daily. PARoxetine hydrochloride 10 mg oral tablet (17 sources) Serotonin Reuptake Inhibitor Start: 2 End: 2 take 1 tablet by mouth once daily at mealtime, then take 2 tablets by mouth once daily PARoxetine (PAXIL) 10 mg tablet Indications: Chronic prescription opiate use , History of Gelacio-en-Y gastric bypass , Anastomotic ulcer , Intercostal neuralgia , Neuralgia and neuritis , Generalized abdominal pain take 1 tab PO daily with food x 7 days, then increase to 2 tabs PO daily if tolerated. 60 tablet 5 07/04/2022 08/08/2022 Discontinued Comment on above: take 1 tab PO daily with food x 7 days, then increase to 2 tabs PO daily if tolerated. polyethylene glycol 3350 62852 mg powder for oral solution (14 sources) Osmotic Laxative Start: polyethylene glycol 3350 (MIRALAX) 17 gram/dose powder Take 17 g by mouth two times a day. Dissolve dose in 4 - 8 ounces of liquid and take as directed. 510 g 1 08/17/2023 Active Start: 04-23-2023 polyethylene g lycol 3350 17 gram packet Take 1 Packet by mouth once daily as needed for constipation. Dissolve dose in 4 - 8 ounces of liquid and take as directed. 0 04/23/2023 Active Start: 04-13-2023 polyethylene g lycol 3350 17 gram packet Take 1 Packet by mouth once daily. Dissolve dose in 4 - 8 ounces of liquid and take as directed. 0 04/13/2023 Active Comment on above: Take 1 Packet by chevy once daily. Dissolve dose in 4 - 8 ounces of liquid and take as directed. Take 1 Packet by chevy th once daily as needed for constipation. Dissolve dose in 4 - 8 ounces of liquid and take as directed. Take 17 g by mouth t wo times a day. Dissolve dose in 4 - 8 ounces of liquid and take as directed. 72 hr scopolamine 0.0139 mg/hr transdermal system (1 source) Anticholinergic Start: End: apply 1 dose transdermal route once daily scopolamine (TRANSDERM-SCOP) 1 mg/[address] 1 patch on the skin every third day. 5 patch 1 05/08/2022 11/18/2023 Discontinued (Therapy completed) Sennosides (Senokot) 8.6 mg tablet (8 sources) Start: End: take 1 tablet by mouth twice daily Sennosides (Senokot) 8.6 mg tablet Discontinued 8.6 MG PO Twice daily 60 May 03, 2022 11:00pm June 03, 2023 11:28am Start: 05-04-2022 End: 06-03-2023 take 1 tablet by mouth twice daily Sennosides (Senokot) 8.6 mg tablet Discontinued 8.6 MG PO Twice daily 60 May 04, 2022 12:00am June 03, 2023 12:28pm Start: 05-04-2022 take 1 tablet by chevy twice daily Sennosides (Senokot) 8.6 mg tablet Active 8.6 MG PO Twice daily 60 May 04, 2022 12:00am sennosides, intermediate 8.6 mg oral tablet (6 sources) Start: 08-17-2023 End: 08-27-2023 take 2 tablets by mouth twice daily Senna 8.6 mg tab Take 2 tablets by mouth two times a day. 60 tablet 1 08/17/2023 08/27/2023 Discontinued (Discontinued by Patient) Comment on above: Take 2 tablets by mo cox branson two times a day. Sucralfate (Carafate) 100 mg/mL Suspension (8 sources) Start: 04-29-2022 End: 06-03-2023 take 1 mL by mouth four times daily Sucralfate (Carafate) 100 mg/mL Suspension Discontinued 10 ML PO Four times daily April 28, 2022 11:00pm June 03, 2023 11:28am swish in mouth and swallow; use after food/drink Start: 04-29-2022 End: 06-03-2023 take 1 mL by mouth four times daily Sucralfate (Carafate) 100 mg/mL Suspension Discontinued 10 ML PO Four times daily April 29, 2022 12:00am June 03, 2023 12:28pm swish in mouth and swallow; use after food/drink Start: 04-29-2022 take 1 mL by mouth f our times daily Sucralfate (Carafate) 100 mg/mL Suspension Active 10 ML PO Four times daily April 29, 2022 12:00am swish in mouth and swallow; use after food/drink thiamine 100 mg oral tablet (3 sources) Start: 05-09-2022 take 1 tablet by mouth once daily Thiamine HCl - 100 MG Oral Tablet TAKE 1 TABLET DAILY. Quantity: 30 Refills: 0 Ordered: 09-May-2022 Brittany Bose MD Start : 09-May-2022 Active traMADol hydrochloride 50 mg oral tablet (4 sources) Opioid Agonist Start: 12-19-2021 Ultram 50 MG Oral Tablet Quantity: 0 Refills: 0 Ordered: 19-Dec-2021 DO Start : 19-Dec-2021 Active vancomycin 125 mg oral capsule (9 sources) Glycopeptide Antibacterial Start: 10-08-2023 End: 10-23-2023 take 500 mg by mouth four times daily Vancomycin Discontinued 500 MG PO Four times daily October 08, 2023 12:00am October 23, 2023 12:53pm Start: 09-22-2023 End: 11-13-2023 take 1 capsule by mouth four times daily, then take 1 capsule by mouth twice daily, then take 1 capsule by mouth once daily, then take 1 capsule by mouth every other day vancomycin (Vancocin) 125 MG capsule Indications: C. difficile diarrhea Take 1 capsule (125 mg) by mouth 4 (four) times a day for 10 days, THEN 1 capsule (125 mg) 2 (two) times a day for 7 days, THEN 1 capsule (125 mg) Daily for 7 days, THEN 1 capsule (125 mg) every other day for 28 days. 75 capsule 0 09/22/2023 11/13/2023 Active Start: 09-21-2022 End: 10-07-2022 take 1 capsule by mouth four times daily vancomycin (VANCOCIN) 125 mg capsule Take 1 capsule by mouth four times daily for 16 days. 64 capsule 0 09/21/2022 10/07/2022 Active Comment on above: Take 1 capsule by mo ut four times daily for 16 days. vitamin b complex capsule (20 sources) Start: 09-19-2022 take 1 capsule by mouth once daily vitamin b complex capsule Indications: Malnutrition of mild degree (HCC) , History of Gelacio-en-Y gastric bypass Take 1 capsule by mouth once daily. 90 capsule 0 09/19/2022 Suspended Start: 09-19-2022 take 1 capsule by mo uth once daily vitamin b complex capsule Indications: Malnutrition of mild degree (HCC) , History of Gelacio-en-Y gastric bypass Take 1 capsule by mouth once daily. 90 capsule 0 09/19/2022 Active Start: 08-04-2022 End: 09-19-2022 take 1 capsule by mouth once daily vitamin b complex capsule Take 1 capsule by mouth once daily. 30 capsule 2 08/04/2022 09/19/2022 Discontinued Start: 08-04-2022 take 1 capsule by mo uth once daily vitamin b complex capsule Take 1 capsule by mouth once daily. 30 capsule 2 08/04/2022 Suspended Start: 08-04-2022 take 1 capsule by mo uth once daily vitamin b complex capsule Take 1 capsule by mouth once daily. 30 capsule 2 08/04/2022 Active Comment on above: Take 1 capsule by mo uth once daily. Problems Active Problems Problem Classification Problem Date Documented Da te Episodic/Chronic Adjustment disorders (3 sources) Adjustment disorder with mixed anxiety and depressed mood; Translations: [Adjustment disorder with mixed anxiety and depressed mood] Onset: 3 02-16-2023 Chronic Anxiety disorders (20 sources) Anxiety; Translations: [Anxiety state, unspecified] Onset: 0 06-16-2022 Chronic Attention-deficit, conduct, and disruptive behavior disorders (20 sources) Attention deficit hyperactivity disorder; Translations: [Attention-deficit hyperactivity disorder, unspecified type] Onset: 1 08-12-2022 Chronic Cancer of pancreas (1 source) Malignant tumor of pancreas; Translations: [Malignant neoplasm of pancreas, part unspecified] Resolved: 3 04-28-2023 Chronic Complications of surgical procedures or medical care (20 sources) Post-surgical malabsorption; Translations: [Other and unspecified postsurgical nonabsorption] Chronic Deficiency and other anemia (20 sources) Iron deficiency anemia; Translations: [Iron deficiency anemia, unspecified] Onset: 2 06-17-2022 Episodic Disorders usually diagnosed in infancy, childhood, or adolescence (3 sources) Attention deficit hyperactivity disorder, predominantly inattentive type; Translations: [Other specified behavioral and emotional disorders with onset usually occurring in childhood and adolescence] Onset: 3 01-15-2023 Chronic E Codes: Adverse effects of medical care (1 source) Surgical operation with anastomosis, bypass or graft as the cause of abnormal reaction of the patient, or of later complication, without mention of misadventure at the time of the procedure; Translations: [Surgical operation with anastomosis, bypass or graft as the cause of abnormal reaction of the patient, or of later complication, without mention of misadventure at the time of the procedure] Onset: 4 Episodic Esophageal disorders (20 sources) Gastro-esophageal reflux disease with esophagitis; Translations: [Reflux esophagitis] Onset: 1 12-22-2021 Chronic Fever of unknown origin (2 sources) Fever, unspecified; Translations: [Fever and chills] Onset: 2 Episodic Fluid and electrolyte disorders (20 sources) Dehydration; Translations: [Dehydration] Onset: 3 04-30-2022 Episodic Comment on above: Added by Problem Zoya t Migration; 2013-08-25; Gastroduodenal ulcer (except hemorrhage) (20 sources) Peptic ulcer; Translations: [Peptic ulcer of unspecified site, unspecified as acute or chronic, without mention of hemorrhage or perforation, without mention of obstruction] Onset: 2 05-27-2021 Chronic Gastroduodenal ulcer (except hemorrhage) (2 sources) Gastric erosion; Translations: [Acute gastric ulcer without hemorrhage or perforation] Onset: 1 11-18-2023 Episodic Gastrointestinal hemorrhage (11 sources) Gastrointestinal hemorrhage; Translations: [Gastrointestinal hemorrhage, unspecified] Onset: 4 10-08-2023 Episodic Genitourinary symptoms and ill-defined conditions (20 sources) Urinary symptoms ; Translations: [Other symptoms involving urinary system] Resolved: 1 Episodic Headache; including migraine (6 sources) Migraine without aura, not refractory ; Translations: [Chronic migraine without aura, not intractable, with status migrainosus] Onset: 3 02-16-2023 Chronic Headache; including migraine (1 source) Headache; including migraine; Translations: [Headache, unspecified] Onset: 3 Hypertension complicating ; childbirth and the puerperium (20 sources) -induced hypertension; Translations: [Gestational [-induced] hypertension without significant proteinuria, unspecified trimester] 05-17-2010 Episodic Intestinal infection (20 sources) Clostridium difficile colitis; Translations: [Enterocolitis due to Clostridium difficile, not specified as recurrent] Onset: 3 09-28-2022 Episodic Malaise and fatigue (1 source) Weakness; Translations: [Weakness] Onset: 3 Episodic Mood disorders (2 sources) Recurrent major depressive episodes, moderate ; Translations: [Major depressive disorder, recurrent, moderate] 10-27-2023 Chronic Neoplasms of unspecified nature or uncertain behavior (1 source) Neoplasm of pancreas; Translations: [Neoplasm of unspecified nature of digestive system] 04-28-2023 Episodic Noninfectious gastroenteritis (3 sources) Noninfective gastroenteritis and colitis, unspecified; Translations: [Chronic diarrhea] Onset: 3 10-28-2023 Episodic Nutritional deficiencies (20 sources) Vitamin D deficiency; Translations: [Vitamin D deficiency, unspecified] Onset: 2 06-17-2022 Chronic Other aftercare (20 sources) Patient encounter status; Translations: [Encounter for other specified aftercare] Onset: 7 08-15-2017 Episodic Other aftercare (2 sources) Prescribed medication regimen behavior finding; Translations: [buttermaker continuous churn (current) use of opiate analgesic] Episodic Other aftercare (3 sources) Peripherally inserted central venous catheter in situ; Translations: [Encounter for adjustment and management of vascular access device] Episodic Other aftercare (2 sources) Post-discharge follow-up; Translations: [Encounter for follow-up examination after completed treatment for conditions other than malignant neoplasm] Episodic Other aftercare (1 source) 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; Translations: [Other [facility] (current) drug therapy] Onset: 3 Episodic Other congenital anomalies (20 sources) Aberrant thyroid gland; Translations: [Congenital malformations of other endocrine glands] Onset: 2 12-12-2015 Chronic Other connective tissue disease (2 sources) Neuropathy; Translations: [Neuralgia and neuritis, unspecified] Episodic Other connective tissue disease (1 source) Spasm; Translations: [Other muscle spasm] Episodic Other connective tissue disease (3 sources) Muscle pain; Translations: [Myalgia, unspecified site] Onset: 3 08-13-2023 Episodic Other disorders of stomach and duodenum (10 sources) Pyloric stenosis; Translations: [Adult hypertrophic pyloric stenosis] Onset: 4 05-04-2022 Episodic Other disorders of stomach and duodenum (5 sources) Adult hypertrophic pyloric stenosis; Translations: [Acquired hypertrophic pyloric stenosis] Onset: 4 06-04-2023 Episodic Other disorders of stomach and duodenum (6 sources) Gastroparesis syndrome; Translations: [Gastroparesis] Onset: 4 10-16-2023 Episodic Other disorders of stomach and duodenum (3 sources) Gastroparesis; Translations: [Gastroparesis] Onset: 4 10-08-2023 Episodic Other disorders of stomach and duodenum (2 sources) Pyloric obstruction; Translations: [Adult hypertrophic pyloric stenosis] Onset: 2 11-18-2023 Episodic Other gastrointestinal disorders (20 sources) Diarrhea; Translations: [Intestinal malabsorption, unspecified] Onset: 2 06-16-2022 Chronic Other gastrointestinal disorders (1 source) Intestinal bypass and anastomosis status; Translations: [History of bypass gastrojejunostomy] Onset: 2 Chronic Other gastrointestinal disorders (20 sources) Intestinal malabsorption; Translations: [Intestinal malabsorption, unspecified] Onset: 3 07-13-2023 Chronic Other gastrointestinal disorders (1 source) Abnormal intestinal absorption; Translations: [Intestinal malabsorption, unspecified] 07-21-2023 Chronic Other gastrointestinal disorders (2 sources) Intestinal malabsorption, unspecified; Translations: [Intestinal malabsorption, unspecified] Onset: 3 Chronic Other gastrointestinal disorders (20 sources) History of bariatric surgical procedure; Translations: [Bariatric surgery status] Episodic Other gastrointestinal disorders (20 sources) History of bypass of stomach; Translations: [Bariatric surgery status] 05-27-2021 Episodic Other gastrointestinal disorders (1 source) Hyperalgesia; Translations: [Other specified symptoms and signs involving the digestive system and abdomen] Episodic Other gastrointestinal disorders (1 source) Abdominal bloating; Translations: [Abdominal distension (gaseous)] 04-09-2023 Episodic Other gastrointestinal disorders (3 sources) Diarrhea of presumed infectious origin; Translations: [Diarrhea, unspecified] Onset: 3 04-08-2023 Episodic Other gastrointestinal disorders (9 sources) Bariatric surgery status; Translations: [Bariatric surgery status] Onset: 2 06-04-2023 Episodic Other gastrointestinal disorders (1 source) Perforation of intestine; Translations: [Perforation of intestine] 04-28-2023 Episodic Other gastrointestinal disorders (1 source) Other specified diseases of intestine; Translations: [Other specified diseases of intestine] Onset: 3 Episodic Other gastrointestinal disorders (1 source) Fecal incontinence with fecal urgency; Translations: [Full incontinence of feces] 07-13-2023 Episodic Other gastrointestinal disorders (1 source) Chronic constipation with overflow; Translations: [Other constipation] 07-27-2023 Episodic Other gastrointestinal disorders (2 sources) Functional diarrhea; Translations: [Functional diarrhea] 10-27-2023 Episodic Other infections; including parasitic (4 sources) History of bacterial infection; Translations: [Personal history of other infectious and parasitic diseases] 10-08-2023 Episodic Other infections; including parasitic (6 sources) Personal history of other infectious and parasitic diseases; Translations: [Personal history of other infectious and parasitic diseases] Onset: 4 10-08-2023 Episodic Other nervous system disorders (20 sources) Intercostal neuralgia; Translations: [Other specified mononeuropathies] Onset: 2 Chronic Other nervous system disorders (20 sources) Chronic pain syndrome; Translations: [Chronic pain syndrome] Onset: 2 Chronic Other non-traumatic joint disorders (2 sources) Joint pain; Translations: [Pain in joint, site unspecified] 12-22-2021 Episodic Other nutritional; endocrine; and metabolic disorders (20 sources) Morbid obesity; Translations: [Morbid obesity] Onset: 3 12-22-2021 Chronic Other nutritional; endocrine; and metabolic disorders (10 sources) Body mass index 30+ - obesity; Translations: [Obesity, unspecified] Chronic Other nutritional; endocrine; and metabolic disorders (10 sources) Hypomagnesemia; Translations: [Hypomagnesemia] Onset: 4 04-30-2022 Chronic Other nutritional; endocrine; and metabolic disorders (3 sources) Hypomagnesemia; Translations: [Disorders of magnesium metabolism] Onset: 4 05-04-2022 Chronic Other nutritional; endocrine; and metabolic disorders (20 sources) Localized adiposity; Translations: [Localized adiposity] 09-27-2019 Chronic Other nutritional; endocrine; and metabolic disorders (20 sources) Obese class I; Translations: [Obesity, unspecified] Onset: 2 07-29-2022 Chronic Other nutritional; endocrine; and metabolic disorders (1 source) Overweight in adulthood with body mass index of 25 or more but less than 30; Translations: [Overweight] 07-20-2023 Episodic Other nutritional; endocrine; and metabolic disorders (2 sources) Decrease in appetite; Translations: [Anorexia] 10-27-2023 Episodic Other skin disorders (12 sources) Eruption; Translations: [Rash and other nonspecific skin eruption] Episodic Other skin disorders (20 sources) Excess skin of arm; Translations: [Excessive and redundant skin and subcutaneous tissue] 09-27-2019 Episodic Other skin disorders (1 source) Generalized hyperhidrosis; Translations: [Generalized hyperhidrosis] Onset: 3 Episodic Other upper respiratory infections (2 sources) Acute pharyngitis, unspecified; Translations: [Acute sinusitis, unspecified] Episodic Pancreatic disorders (not diabetes) (6 sources) Chronic pancreatitis; Translations: [Chronic pancreatitis] Onset: 3 04-28-2023 Chronic Pancreatic disorders (not diabetes) (2 sources) Pseudocyst of pancreas; Translations: [Cyst and pseudocyst of pancreas] 04-28-2023 Episodic Pleurisy; pneumothorax; pulmonary collapse (1 source) Pleural effusion; Translations: [Pleural effusion, not elsewhere classified] 11-18-2023 Episodic Pneumonia (except that caused by tuberculosis or sexually transmitted disease) (2 sources) Community acquired pneumonia; Translations: [Unspecified bacterial pneumonia] Onset: 4 11-18-2023 Episodic Prolapse of female genital organs (1 source) Pelvic floor dysfunction; Translations: [Other female genital prolapse] 07-27-2023 Chronic Residual codes; unclassified (20 sources) Obstructive sleep apnea syndrome; Translations: [Obstructive sleep apnea (adult)(pediatric)] Chronic Residual codes; unclassified (2 sources) Sleep apnea; Translations: [Unspecified sleep apnea] 12-22-2021 Chronic Residual codes; unclassified (4 sources) Obstructive sleep apnea (adult) (pediatric); Translations: [OBSTRUCTIVE SLEEP APNEA] Onset: 2 Chronic Residual codes; unclassified (2 sources) Encounter for prophylactic measures, unspecified; Translations: [Unspecified prophylactic or treatment measure] 05-04-2022 Episodic Residual codes; unclassified (2 sources) Other specified postprocedural states; Translations: [H/O abdominal surgery] Onset: 3 Episodic Residual codes; unclassified (2 sources) Other specified health status; Translations: [On total parenteral nutrition (TPN)] Onset: 2 Episodic Residual codes; unclassified (1 source) Acquired absence of other specified parts of digestive tract; Translations: [Acquired absence of other specified parts of digestive tract] Onset: 3 Episodic Residual codes; unclassified (1 source) Acquired absence of both cervix and uterus; Translations: [Acquired absence of both cervix and uterus] Onset: 3 Episodic Residual codes; unclassified (1 source) History of sleeve gastrectomy; Translations: [Acquired absence of stomach [part of]] 07-20-2023 Episodic Skin and subcutaneous tissue infections (6 sources) Cutaneous abscess of abdominal wall; Translations: [Cellulitis of abdominal wall] Onset: 2 Episodic Spondylosis; intervertebral disc disorders; other back problems (5 sources) Neck pain; Translations: [Cervicalgia] Onset: 5 07-13-2015 Episodic Thyroid disorders (20 sources) Thyroid nodule; Translations: [Nontoxic uninodular goiter] Onset: 2 06-16-2022 Chronic Thyroid disorders (20 sources) Disorder of thyroid gland; Translations: [Disorder of thyroid, unspecified] 09-27-2019 Episodic Unclassified (2 sources) INTRACTABLE ABDOMINAL PAIN R10.9 05-25-2021 Comment on above: INTRACTABLE ABDOMINA L PAIN R10.9 Unclassified (1 source) S/P gastric bypass 05-27-2021 Unclassified (1 source) PUD (peptic ulcer disease) 05-27-2021 Unclassified (2 sources) LAP REVISION R 12-12-2021 Comment on above: LAP REVISION R Unclassified (2 sources) Body mass index [BMI] 40.0-44.9, adult 12-24-2021 Unclassified (6 sources) REVISION 12/23/21 12-12-2021 Comment on above: REVISION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 None Seen [facility] Comment on above: Order Comment: Name Collection Type:: Clean-Voided Midstream Performed By: #### C BC #### [facility] [address] [id number] [place] Bilirubin,Urine Negative Normal Negative [facility] Comment on above: Order Comment: Name Collection Type:: Clean-Voided Midstream Performed By: #### C BC #### [facility] [address] [place] [id number] [place] Color (U) Yellow Normal Yellow [facility] Comment on above: Order Comment: Name Collection Type:: Clean-Voided Midstream Performed By: #### C BC #### [facility] [address] [place] [id number] [place] Glucose Ql (U) Normal Normal Normal [facility] Comment on above: Order Comment: Name Collection Type:: Clean-Voided Midstream Performed By: #### C BC #### [facility] [address] [place] [id number] [place] Hyaline Casts,Urine None Seen Normal 0-1 [facility] Comment on above: Order Comment: Name Collection Type:: Clean-Voided Midstream Result Comment: PERF ORMED BY: [place] [address] PATHOLOGIST LATIN DANCER SUMAN NICHOLSON M.D. Performed By: #### C BC #### [address] Ketones Ql (U) Negative Normal Negative [facility] Comment on above: Order Comment: Name Collection Type:: Clean-Voided Midstream Performed By: #### C BC #### [address] Leukocyte esterase Test strip Ql (U) Negative Normal Negative [facility] Comment on above: Order Comment: Name Collection Type:: Clean-Voided Midstream Performed By: #### C BC #### [address] Nitrite,Urine Negative Normal Negative [facility] Comment on above: Order Comment: Name Collection Type:: Clean-Voided Midstream Performed By: #### C BC #### [address] Occult Blood,Urine 2+ High Negative [facility] Comment on above: Order Comment: Name Collection Type:: Clean-Voided Midstream Result Comment: PERF ORMED BY: [place] [address] PATHOLOGIST LATIN DANCER SUMAN NICHOLSON M.D. Performed By: #### C BC #### [address] pH (U) 6.0 [pH] Normal 5.0-9.0 [facility] Comment on above: Order Comment: Name Collection Type:: Clean-Voided Midstream Performed By: #### C BC #### [place] [address] [place] Protein,Urine Trace High Negative [facility] Comment on above: Order Comment: Name Collection Type:: Clean-Voided Midstream Performed By: #### C BC #### [place] [address] [place] RBC,Urine 5-9 High 0-4 [facility] Comment on above: Order Comment: Name Collection Type:: Clean-Voided Midstream Performed By: #### C BC #### [address] Specificy [place],Urine > 1.050 High 1.001-1.03 0 [facility] Comment on above: Order Comment: Name Collection Type:: Clean-Voided Midstream Performed By: #### C BC #### [address] Squamous Epithelial Cell,Urine 1-2 Normal 0-2 [facility] Comment on above: Order Comment: Name Collection Type:: Clean-Voided Midstream Performed By: #### C BC #### [address] Urobilinogen,Urine Normal Normal Normal [facility] Comment on above: Order Comment: Name Collection Type:: Clean-Voided Midstream Performed By: #### C BC #### [address] WBC,Urine 3-4 Normal 0-4 [facility] Comment on above: Order Comment: Name Collection Type:: Clean-Voided Midstream Performed By: #### C BC #### [address] ECG 12 lead ECGon 11-04-2023 ECG 12 lead ECG [facility] [place] [address] Electrocardiograph Report Signed Patient: Melina Díaz MR#: [id number] : 1975 Acct:[id number] Age/Sex: 48 / F ADM Date: 11/04/23 Loc: ER Room: Type: [facility] ER Attending Dr: Ordering Provider: Ro Guillaume DO Date of Service: 11/04/23 ECG/ECG 12 lead ECG: Fever Copies to: Test Reason : Blood Pressure : 109/062 mmHG Vent. Rate : 071 BPM Atrial Rate : 071 BPM P-R Int : 172 ms QRS Dur : 082 ms QT Int : 442 ms P-R-T Axes : 050 046 034 degrees QTc Int : 480 ms Poor data quality, interpretation may be adversely affected Normal sinus rhythm Prolonged QT Abnormal ECG No previous ECGs available Confirmed by RO GUILLAUME DO ([id number]) on 11/04/2023 3:15:19 PM Referred By: Electronically Signed By:RO GUILLAUME DO Transcribed By: MUS Signed By Ro Guillaume DO [id number] Normal [facility] Eosinophils Auto (Bld) [#/Vo l]Ordered By: Chris Briseno on 11-04-2023 Eosinophils (Bld) [#/Vol] 0.1 10*3/uL 0.0-0.45 [facility] Eosinophils/100 WBC Auto (Bl d)Ordered By: Chris Briseno on 11-04-2023 Eosinophils/100 WBC (Bld) 1.7 % . [facility] Erythrocyte distribution wid th Auto (RBC) [Ratio]Ordered By: Chirs Briseno on 11-04-2023 Erythrocyte distribution width (RBC) [Ratio] 14.8 % 11.9-15.3 [facility] Globulin Calc (S) [Mass/Vol] Ordered By: Chris Briseno on 11-04-2023 Globulin (S) [Mass/Vol] 2.4 g/dL [facility] Glucose [Mass/volume] in Ser um or PlasmaOrdered By: Chris Briseno on 11-04-2023 Glucose [Mass/Vol] 108 mg/dL 70-100 [facility] Comment on above: ADA recommended refe rence rangeRandom Glucose Reference Range is dependent on time and content of last meal. Glucose of more than 200 mg/dL in a nonstressed, ambulatory subject supports the diagnosis of Diabetes Mellitus. Hematocrit Auto (Bld) [Volum e fraction]Ordered By: Chris Briseno on 11-04-2023 Hematocrit (Bld) [Volume fraction] 33.9 % 34.0-46.4 [facility] Hemoglobin [Mass/volume] in BloodOrdered By: Chris Briseno on 11-04-2023 Hemoglobin (Bld) [Mass/Vol] 11.6 g/dL 11.8-15.4 [facility] Hepatic Panelon 11-04-2023 Albumin [Mass/Vol] 3.6 g/dL Normal 3.5-5.7 [facility] Comment on above: Performed By: #### C BC #### [address] Albumin/Globulin [Mass ratio] 1.5 {ratio} Normal [facility] Comment on above: Performed By: #### C BC #### [facility] [address] ALP [Catalytic activity/Vol] 146 U/L High 34-104 [facility] Comment on above: Performed By: #### C BC #### [address] ALT [Catalytic activity/Vol] 67 U/L High 7-52 [facility] Comment on above: Performed By: #### C BC #### [address] AST [Catalytic activity/Vol] 36 U/L Normal 13-39 [facility] Comment on above: Performed By: #### C BC #### [address] Bilirubin [Mass/Vol] 0.5 mg/dL Normal 0.3-1.0 [facility] Comment on above: Performed By: #### C BC #### [address] Bilirubin,Indirect 0.4 mg/dL Normal [facility] Comment on above: Performed By: #### C BC #### [address] Bilirubin.indirect [Mass/Vol] 0.10 mg/dL Normal 0.03-0.18 [facility] Comment on above: Performed By: #### C BC #### [address] Globulin (S) [Mass/Vol] 2.4 g/dL Normal [facility] Comment on above: Performed By: #### C BC #### [address] [place] [address] [place] Protein [Mass/Vol] 6.0 g/dL Low 6.4-8.9 [facility] Comment on above: Performed By: #### C BC #### [address] Ketones Auto test strip (U) [Mass/Vol]Ordered By: Ro Guillaume on 11-04-2023 Ketones (U) [Mass/Vol] Negative Negative [facility] Leukocytes [#/volume] correc nick for nucleated erythrocytes in Blood by Automated counOrdered By: Chris Briseno on 11-04-2023 WBC corrected for nucl RBC Auto (Bld) [#/Vol] 6.3 10*3/uL 3.8-11.6 [facility] Lipaseon 11-04-2023 Lipase [Catalytic activity/Vol] 14.0 U/L Normal 11.0-82.0 [facility] Comment on above: Result Comment: PERF ORMED BY: [place] [address] PATHOLOGIST LATIN DANCER SUMAN NICHOLSON M.D. Performed By: #### C BC #### [address] Lipase [Enzymatic activity/v olume] in Serum or PlasmaOrdered By: Chris Briseno on 11-04-2023 Lipase [Catalytic activity/Vol] 14.0 U/L 11.0-82.0 [facility] Lymphocytes Auto (Bld) [#/Vo l]Ordered By: Chris Briseno on 11-04-2023 Lymphocytes (Bld) [#/Vol] 1.6 10*3/uL 1.00-4.8 [facility] Lymphocytes/100 WBC Auto (Bl d)Ordered By: Chris Briseno on 11-04-2023 Lymphocytes/100 WBC (Bld) 25.7 % . [facility] MCH Auto (RBC) [Entitic mass ]Ordered By: Chris Briseno on 11-04-2023 MCH (RBC) [Entitic mass] 30.3 pg 24.7-34.3 [facility] MCHC Auto (RBC) [Mass/Vol]Or dered By: Chris Briseno on 11-04-2023 MCHC (RBC) [Mass/Vol] 34.3 g/dL 32.0-35.0 [facility] MCV Auto (RBC) [Entitic vol] Ordered By: Chris Briseno on 11-04-2023 MCV (RBC) [Entitic vol] 88.2 fL 80-100 [facility] Microcytes LM Ql (Bld)Ordere d By: Chris Briseno on 11-04-2023 Microcytes Ql (Bld) Moderate [facility] Monocyte distribution width [Entitic volume] in Blood by AutomatedOrdered By: Chris Briseno on 11-04-2023 Monocyte distribution width Auto (Bld) [Entitic vol] 37.57 % 0.00-20.00 [facility] Comment on above: The predictive value of MDW for identifying sepsis in patients with hematological abnormalities has not been established Monocytes Auto (Bld) [#/Vol] Ordered By: Chris Briseno on 11-04-2023 Monocytes (Bld) [#/Vol] 0.8 10*3/uL 0.0-0.8 [facility] Monocytes/100 WBC Auto (Bld) Ordered By: Chris Briseno on 11-04-2023 Monocytes/100 WBC (Bld) 12.3 % . [facility] Neutrophils Auto (Bld) [#/Vo l]Ordered By: Chris Briseno on 11-04-2023 Neutrophils (Bld) [#/Vol] 3.7 10*3/uL 1.8-7.7 [facility] Neutrophils/100 WBC Auto (Bl d)Ordered By: Chris Briseno on 11-04-2023 Neutrophils/100 WBC (Bld) 59.1 % . [facility] Nitrite Test strip Ql (U)Ord ered By: Ro Guillaume on 11-04-2023 Nitrite Ql (U) Negative Negative [facility] No Panel InformationOrdered By: Chris Briseno on 11-04-2023 Estimated GFR (CKD-EPI) > 60.0 mL/Min [facility] Creatinine Clearance (Chem 180.20 [facility] Nucleated erythrocytes [Pres ence] in Blood by Automated countOrdered By: Chris Briseno on 11-04-2023 Nucleated RBC Auto Ql (Bld) 0.1 /100{WBC} 0-0.5 [facility] Ovalocyte detectionOrdered B y: Chris Briseno on 11-04-2023 Ovalocytes LM Ql (Bld) Slight [facility] Platelet adequacy [Presence] in Blood by Light microscopyOrdered By: Chris Briseno on 11-04-2023 Platelets LM Ql (Bld) Decreased Normal [facility] Platelet mean volume Auto (B ld) [Entitic vol]Ordered By: Chris Briseno on 11-04-2023 Platelet mean volume (Bld) [Entitic vol] 8.4 fL 6.3-10.7 [facility] Platelet morphology finding [Identifier] in BloodOrdered By: Chris Briseno on 11-04-2023 Platelet morphology finding Nom (Bld) Normal Normal [facility] Platelets Auto (Bld) [#/Vol] Ordered By: Chris Briseno on 11-04-2023 Platelets (Bld) [#/Vol] 136 10*3/uL 150-450 [facility] Poikilocytosis [Presence] in Blood by Light microscopyOrdered By: Chris Briseno on 11-04-2023 Poikilocytosis LM Ql (Bld) Slight [facility] Potassium [Moles/volume] in Serum or PlasmaOrdered By: Chris Briseno on 11-04-2023 Potassium [Moles/Vol] 3.6 mmol/L 3.5-5.1 [facility] Protein Auto test strip (U) [Mass/Vol]Ordered By: Ro Guillaume on 11-04-2023 Protein (U) [Mass/Vol] Trace mg/dL Negative [facility] Protein [Mass/volume] in Ser um or PlasmaOrdered By: Chris Briseno on 11-04-2023 Protein [Mass/Vol] 6.0 g/dL 6.4-8.9 [facility] RBC Auto (Bld) [#/Vol]Ordere d By: Chris Briseno on 11-04-2023 RBC (Bld) [#/Vol] 3.84 10*6/uL 3.60-5.00 [facility] RBC morphologyOrdered By: Jose L missael Savagey on 11-04-2023 RBC morphology finding Nom (Bld) N/A [facility] Scan and CBCon 11-04-2023 Anisocytosis Ql (Bld) Moderate Normal [facility] Comment on above: Performed By: #### C BC #### [facility] [address] Basophils (Bld) [#/Vol] 0.1 10*3/uL Normal 0.0-0.2 [facility] Comment on above: Performed By: #### C BC #### [address] Basophils/100 WBC (Bld) 1.2 % Normal . [facility] Comment on above: Performed By: #### C BC #### [address] Eosinophils (Bld) [#/Vol] 0.1 10*3/uL Normal 0.0-0.45 [facility] Comment on above: Performed By: #### C BC #### [address] Eosinophils/100 WBC (Bld) 1.7 % Normal . [facility] Comment on above: Performed By: #### C BC #### [address] Erythrocyte distribution width (RBC) [Ratio] 14.8 % Normal 11.9-15.3 [facility] Comment on above: Performed By: #### C BC #### [address] Hematocrit (Bld) [Volume fraction] 33.9 % Low 34.0-46.4 [facility] Comment on above: Performed By: #### C BC #### [address] Hemoglobin (Bld) [Mass/Vol] 11.6 g/dL Low 11.8-15.4 [facility] Comment on above: Performed By: #### C BC #### [address] Lymphocytes (Bld) [#/Vol] 1.6 10*3/uL Normal 1.00-4.8 [facility] Comment on above: Performed By: #### C BC #### [address] Lymphocytes/100 WBC (Bld) 25.7 % Normal . [facility] Comment on above: Performed By: #### C BC #### [address] MCH (RBC) [Entitic mass] 30.3 pg Normal 24.7-34.3 [facility] Comment on above: Performed By: #### C BC #### [address] MCV (RBC) [Entitic vol] 88.2 fL Normal 80-100 [facility] Comment on above: Performed By: #### C BC #### [address] Mean Corpuscular HGB Conc 34.3 g/dL Normal 32.0-35.0 [facility] Comment on above: Performed By: #### C BC #### [address] Microcytosis Moderate Normal [facility] Comment on above: Performed By: #### C BC #### [address] Monocytes (Bld) [#/Vol] 0.8 10*3/uL Normal 0.0-0.8 [facility] Comment on above: Performed By: #### C BC #### [address] Monocytes/100 WBC (Bld) 37.57 % High 0.00-20.00 [facility] Comment on above: Result Comment: The predictive value of MDW for identifying sepsis in patients with hematological abnormalities has not been established Performed By: #### C BC #### [facility] [address] Monocytes/100 WBC (Bld) 12.3 % Normal . [facility] Comment on above: Performed By: #### C BC #### [facility] [address] Neutrophils (Bld) [#/Vol] 3.7 10*3/uL Normal 1.8-7.7 [facility] Comment on above: Performed By: #### C BC #### [address] Neutrophils/100 WBC (Bld) 59.1 % Normal . [facility] Comment on above: Performed By: #### C BC #### [address] NRBC% 0.1 /100{WBC} Normal 0-0.5 [facility] Comment on above: Performed By: #### C BC #### [address] Ovalocytes Slight Normal [facility] Comment on above: Performed By: #### C BC #### [address] Platelet Estimate Decreased Normal Normal [facility] Comment on above: Performed By: #### C BC #### [address] Platelet mean volume (Bld) [Entitic vol] 8.4 fL Normal 6.3-10.7 [facility] Comment on above: Performed By: #### C BC #### [address] Platelet Morphology Normal Normal Normal [facility] Comment on above: Result Comment: PERF ORMED BY: [place] [address] PATHOLOGIST LATIN DANCER SUMAN NICHOLSON M.D. Performed By: #### C BC #### [address] Platelets (Bld) [#/Vol] 136 10*3/uL Low 150-450 [facility] Comment on above: Performed By: #### C BC #### [facility] [address] Poikilocytosis Slight Normal [facility] Comment on above: Performed By: #### C BC #### [facility] [address] RBC (Bld) [#/Vol] 3.84 10*6/uL Normal 3.60-5.00 [facility] Comment on above: Performed By: #### C BC #### [facility] [address] Schistocytes Slight Normal [facility] Comment on above: Performed By: #### C BC #### [facility] [address] WBC (Bld) [#/Vol] 6.3 10*3/uL Normal 3.8-11.6 [facility] Comment on above: Performed By: #### C BC #### [address] Schistocytes [Presence] in B lood by Light microscopyOrdered By: Chris Briseno on 11-04-2023 Schistocytes LM Ql (Bld) Slight [facility] Serum or plasma albumin/glob ulin mass ratioOrdered By: Chris Briseno on 11-04-2023 Albumin/Globulin [Mass ratio] 1.5 {ratio} [facility] Serum or plasma anion gap de terminationOrdered By: Chris Briseno on 11-04-2023 Anion gap [Moles/Vol] 11.2 mmol/L 6.0-15.0 [facility] Serum or plasma non-glucuron idated bilirubin measurement (mass/volume)Ordered By: Chris Briseno on 11-04-2023 Bilirubin.indirect [Mass/Vol] 0.4 mg/dL [facility] Sodium [Moles/volume] in Ser um or PlasmaOrdered By: Chris Brisneo on 11-04-2023 Sodium [Moles/Vol] 140 mmol/L 136-145 [facility] Specific gravity Auto test s trip (U) [Rel density]Ordered By: Ro Guillaume on 11-04-2023 Specific gravity (U) [Rel density] > 1.050 1.001-1.03 0 [facility] Urea nitrogen [Mass/volume] in Serum or PlasmaOrdered By: Chris Briseno on 11-04-2023 Urea nitrogen [Mass/Vol] 8 mg/dL 7-25 [facility] Urine bacteria detection by automated methodOrdered By: Ro Guillaume on 11-04-2023 Bacteria Auto Ql (U) Rare None Seen [facility] Urine clarity by refractomet ry automatedOrdered By: Ro Guillaume on 11-04-2023 Clarity Refractometry automated (U) Clear Clear [facility] Urine glucose measurement by automated test strip (mass/volume)Ordered By: Ro Guillaume on 11-04-2023 Glucose Auto test strip (U) [Mass/Vol] Normal mg/dL Normal [facility] Urine hemoglobin detection b y automated test stripOrdered By: Ro Guillaume on 11-04-2023 Hemoglobin Auto test strip Ql (U) 2+ Negative [facility] Urine leukocyte esterase det ection by automated test stripOrdered By: Ro Guillaume on 11-04-2023 Leukocyte esterase Auto test strip Ql (U) Negative Negative [facility] Urobilinogen Auto test strip (U) [Mass/Vol]Ordered By: Ro Guillaume on 11-04-2023 Urobilinogen (U) [Mass/Vol] Normal mg/dL Normal [facility] WBC Auto (Bld) [#/Vol]Ordere d By: Chris Briseno on 11-04-2023 WBC (Bld) [#/Vol] 6.3 10*3/uL 3.8-11.6 [facility] pH Auto test strip (U)Ordere d By: Ro Guillaume on 11-04-2023 pH (U) 6.0 [pH] 5.0-9.0 [facility] CNPNon 11-03-[address] [facility] CNPNon 11-02-[address] [facility] Alanine aminotransferase [En zymatic activity/volume] in Serum or PlasmaOrdered By: Amber Johnston on 10-28-2023 ALT [Catalytic activity/Vol] 37 U/L Normal 7-52 [facility] Comment on above: Performed By: #### B MP #### [address] Albumin [Mass/volume] in Ser um or Plasma by Bromocresol green (BCG) dye binding methoOrdered By: Amber Johnston on 10-28-2023 Albumin BCG dye [Mass/Vol] 4.2 g/dL 3.5-5.7 [facility] Alkaline phosphatase [Enzyma tic activity/volume] in Serum or PlasmaOrdered By: Amber Johnston on 10-28-2023 ALP [Catalytic activity/Vol] 106 U/L High 34-104 [facility] Comment on above: Performed By: #### B MP #### [address] Aspartate aminotransferase [ Enzymatic activity/volume] in Serum or PlasmaOrdered By: Amber Johnston on 10-28-2023 AST [Catalytic activity/Vol] 26 U/L Normal 13-39 [facility] Comment on above: Performed By: #### B MP #### [address] Automated basophil %Ordered By: Amber Johnston on 10-28-2023 Basophils/100 WBC (Bld) 2.4 % Normal . [facility] Comment on above: Performed By: #### B MP #### [address] Automated basophil countOrde red By: Amber Johnston on 10-28-2023 Basophils (Bld) [#/Vol] 0.2 10*3/uL Normal 0.0-0.2 [facility] Comment on above: Result Comment: PERF ORMED BY: [place] [address] PATHOLOGIST LATIN DANCER SUMAN NICHOLSON M.D. Performed By: #### B MP #### [address] Automated blood monocyte cou ntOrdered By: Amber Laceygurmeet on 10-28-2023 Monocytes (Bld) [#/Vol] 0.7 10*3/uL Normal 0.0-0.8 [facility] Comment on above: Performed By: #### B MP #### [address] Automated eosinophil %Ordere d By: Amber Laceygurmeet on 10-28-2023 Eosinophils/100 WBC (Bld) 2.4 % Normal . [facility] Comment on above: Performed By: #### B MP #### [address] Automated eosinophil countOr dered By: Amber Laceygurmeet on 10-28-2023 Eosinophils (Bld) [#/Vol] 0.2 10*3/uL Normal 0.0-0.45 [facility] Comment on above: Performed By: #### B MP #### [address] Automated monocyte %Ordered By: Amber Laceygurmeet on 10-28-2023 Monocytes/100 WBC (Bld) 9.0 % Normal . [facility] Comment on above: Performed By: #### B MP #### [address] Automated neutrophil %Ordere d By: Amber Laceygurmeet on 10-28-2023 Neutrophils/100 WBC (Bld) 56.3 % Normal . [facility] Comment on above: Performed By: #### B MP #### [address] Bacterial blood cultureOrder ed By: Amber Johnston on 10-28-2023 Bacteria identified Cx Nom (Bld) NO GROWTH 5 DAYS [facility] Bacteria identified Cx Nom (Bld) NO GROWTH 5 DAYS [facility] Basic Metabolic Panelon 10-15 Creatinine Clr Calc Pharmacy 160.54 Normal [facility] Comment on above: Performed By: #### B MP #### [address] GFR/1.73 sq M.predicted MDRD (S/P/Bld) [Vol rate/Area] mL/min/{1.73_m2} Normal [facility] Comment on above: Performed By: #### B MP #### [address] Bilirubin Test strip Ql (U)O rdered By: Amber Johnston on 10-28-2023 Bilirubin Ql (U) Negative Negative [facility] Bilirubin.direct [Mass/volum e] in Serum or PlasmaOrdered By: Amber Johnston on 10-28-2023 Bilirubin.direct [Mass/Vol] 0.10 mg/dL 0.03-0.18 [facility] Bilirubin.total [Mass/volume ] in Serum or PlasmaOrdered By: Ambermaye Johnston on 10-28-2023 Bilirubin [Mass/Vol] 0.3 mg/dL Normal 0.3-1.0 [facility] Comment on above: Performed By: #### B MP #### [address] BioFire Not Detectedon 10-28 BioFire Not Detected Not detected Normal Not Detecte [facility] Comment on above: Result Comment: This is a duplicate RP2.1 COVID (PCR) result to be used for statistical tracking purpose only. PERFORMED BY: [place] [address] PATHOLOGIST LATIN DANCER SUMAN NICHOLSON M.D. Performed By: #### L ACTO SWBC #### [address] #### CALPROTECT #### [facility] , Blood Cultureon 10-28-2023 Bacteria identified Cx Nom (Bld) NO GROWTH 5 DAYS PERFORMED BY: [place] [address] PATHOLOGIST LATIN DANCER SUMAN NICHOLSON M.D. [facility] Comment on above: Performed By: #### B MP #### [address] Bacteria identified Cx Nom (Bld) NO GROWTH 5 DAYS PERFORMED BY: [place] [address] PATHOLOGIST LATIN DANCER SUMAN NICHOLSON M.D. Normal [facility] Comment on above: Performed By: #### B MP #### [address] COVID-19 Detected/Not Detect edOrdered By: Amber Johnston on 10-28-2023 SARS-CoV-2 (COVID-19) RNA MEAGAN+non-probe Ql (Nph) Not detected Not Detecte [facility] Comment on above: This is a duplicate RP2.1 COVID (PCR) result to be used for statistical tracking purpose only. CT abdomen pelvis w conon CT abdomen pelvis w con [facility] [place] [address] [place] [address] CT Scan Report Signed Patient: Melina Díaz MR#: [id number] : 1975 Acct:[id number] Age/Sex: 48 / F ADM Date: 10/28/23 Loc: ER Room: Type: [facility] ER Attending Dr: Copies to: Amber Johnston APRN Ordering Provider: Amber Johnston APRN Date of Service: 10/28/23 CT/CT abdomen pelvis w con: pain CT ABDOMEN AND PELVIS WITH CONTRAST COMPARISON: 10/08/2023 CLINICAL DATA: Nausea, vomiting and diarrhea. Spiral images were obtained through the abdomen and pelvis following 90 mL of Isovue 300. This CT exam was performed using one or more following dose reduction techniques: Automated exposure control, adjustment of the mA and/or kV according to patient size, or use of iterative reconstruction technique. Limited cuts through the lung bases show minimal atelectasis or scarring. There is a tiny hiatal hernia. The gallbladder is surgically absent. There is continued biliary prominence, without choledocholithiasis. No intrahepatic masses are visualized. Splenic and left renal cysts are again noted. There is no hydronephrosis. The pancreas and adrenal glands show no acute findings. The abdominal aorta is normal caliber. No lymphadenopathy or ascites is seen. There are postoperative changes of bariatric surgery. There are some borderline caliber small bowel loops and there is associated anastomotic suture. No wall thickening is seen though some loops contain air and others fluid. There is stool throughout the colon. There is slight levoscoliotic curvature. There are mild degenerative changes at the spine. Images through the pelvis show no dilated small bowel though there are some loops that contain fluid. There is air and mild stool at the distal colon. There is stool at the cecum. No diverticular disease is seen. No appendiceal inflammation is noted. The urinary bladder is not well distended for assessment. The uterus is surgically absent. There is no ascites. CT/CT abdomen pelvis w con IMPRESSION: CONTINUED BILIARY PROMINENCE, WITHOUT COMMON DUCT STONES. THIS MAY RELATE TO PRIOR CHOLECYSTECTOMY. SPLENIC AND LEFT RENAL CYSTS. NO BOWEL OR URINARY TRACT OBSTRUCTION. NO OTHER ACUTE FINDINGS. Impression dictated by: Yanci Huddleston M.D.10/28/2023 8:27 PM Dictation Location: [place] [address] Transcribed By: [facility] 10/28/232026 Dictated By: Yanci Huddleston MD 10/28/232018 Signed By: 10/28/232026 Normal [facility] Calcium [Mass/volume] in Ser um or PlasmaOrdered By: Amber Johnston on 10-28-2023 Calcium [Mass/Vol] 8.7 mg/dL Normal 8.6-10.3 [facility] Comment on above: Performed By: #### B MP #### [facility] [address] [place] [address] Carbon dioxide, total [Moles /volume] in Serum or PlasmaOrdered By: Amber Johnston on 10-28-2023 CO2 [Moles/Vol] 24.2 mmol/L Normal 21.0-31.0 [facility] Comment on above: Performed By: #### B MP #### [facility] [address] Chloride [Moles/volume] in S krystyna or PlasmaOrdered By: Amber Johnston on 10-28-2023 Chloride [Moles/Vol] 110 mmol/L High 98-107 [facility] Comment on above: Performed By: #### B MP #### [facility] [address] [place] [address] Color Auto (U)Ordered By: Dylon Johnston on 10-28-2023 Color (U) Yellow Yellow [facility] Complete Blood Count Auto Di ffon 10-28-2023 Mean Corpuscular HGB Conc 34.0 g/dL Normal 32.0-35.0 [facility] Comment on above: Performed By: #### B MP #### [address] Monocytes/100 WBC (Bld) 17.55 % Normal 0.00-20.00 [facility] Comment on above: Performed By: #### B MP #### [facility] [address] [place] [address] NRBC% 0.1 /100{WBC} Normal 0-0.5 [facility] Comment on above: Performed By: #### B MP #### [address] Creatinine [Mass/volume] in Serum or PlasmaOrdered By: Amber Johnston on 10-28-2023 Creatinine [Mass/Vol] 0.53 mg/dL Low 0.60-1.20 [facility] Comment on above: Performed By: #### B MP #### [facility] [address] [place] [address] Erythrocyte distribution wid th [Ratio] by Automated countOrdered By: Amber Johnston on 10-28-2023 Erythrocyte distribution width (RBC) [Ratio] 14.5 % Normal 11.9-15.3 [facility] Comment on above: Performed By: #### B MP #### [address] Erythrocytes [#/volume] in B lood by Automated countOrdered By: Amber Johnston on 10-28-2023 RBC (Bld) [#/Vol] 4.00 10*6/uL Normal 3.60-5.00 [facility] Comment on above: Performed By: #### B MP #### [address] Glucose [Mass/volume] in Ser um or PlasmaOrdered By: Amber Johnston on 10-28-2023 Glucose [Mass/Vol] 98 mg/dL Normal 70-100 [facility] Comment on above: ADA recommended refe rence rangeRandom Glucose Reference Range is dependent on time and content of last meal. Glucose of more than 200 mg/dL in a nonstressed, ambulatory subject supports the diagnosis of Diabetes Mellitus. Result Comment: [place] Glucose Reference Range is dependent on time and content of last meal. Glucose of more than 200 mg/dL in a nonstressed, ambulatory subject supports the diagnosis of Diabetes Mellitus. ADA recommended reference range Performed By: #### B MP #### [address] HCG ( test) IA.rapi d Ql (U)Ordered By: Amber Johnston on 10-28-2023 HCG ( test) Ql (U) Negative [facility] HCG,Urineon 10-28-2023 Beta HCG ( test) Ql (U) Negative Normal [facility] Comment on above: Order Comment: Name Collection Type:: Clean-Voided Midstream Result Comment: PERF ORMED BY: [place] [address] PATHOLOGIST LATIN DANCER SUMAN NICHOLSON M.D. Performed By: #### B MP #### [address] Hematocrit [Volume Fraction] of Blood by Automated countOrdered By: Amber Johnston on 10-28-2023 Hematocrit (Bld) [Volume fraction] 35.6 % Normal 34.0-46.4 [facility] Comment on above: Performed By: #### B MP #### [address] Hemoglobin [Mass/volume] in BloodOrdered By: Amber Johnston on 10-28-2023 Hemoglobin (Bld) [Mass/Vol] 12.1 g/dL Normal 11.8-15.4 [facility] Comment on above: Performed By: #### B MP #### [facility] [address] Hepatic Panelon 10-28-2023 Albumin [Mass/Vol] 4.2 g/dL Normal 3.5-5.7 [facility] Comment on above: Performed By: #### B MP #### [address] Bilirubin,Indirect 0.2 mg/dL Normal [facility] Comment on above: Performed By: #### B MP #### [facility] [address] Bilirubin.indirect [Mass/Vol] 0.10 mg/dL Normal 0.03-0.18 [facility] Comment on above: Performed By: #### B MP #### [address] Ketones Auto test strip (U) [Mass/Vol]Ordered By: Amber Johnston on 10-28-2023 Ketones (U) [Mass/Vol] Negative Negative [facility] Lactate [Moles/volume] in Se rum or PlasmaOrdered By: Amber Johnston on 10-28-2023 Lactate [Moles/Vol] 0.8 mmol/L Normal 0.5-2.2 [facility] Comment on above: Result Comment: PERF ORMED BY: [place] [address] PATHOLOGIST LATIN DANCER SUMAN NICHOLSON M.D. Performed By: #### L ACTO SWBC #### [address] Leukocytes [#/volume] correc nick for nucleated erythrocytes in Blood by Automated counOrdered By: Amber Johnston on 10-28-2023 WBC corrected for nucl RBC Auto (Bld) [#/Vol] 7.3 10*3/uL 3.8-11.6 [facility] Leukocytes [#/volume] in Blo od by Automated countOrdered By: Amber Johnston on 10-28-2023 WBC (Bld) [#/Vol] 7.3 10*3/uL Normal 3.8-11.6 [facility] Comment on above: Performed By: #### B MP #### [address] Lipase [Enzymatic activity/v olume] in Serum or PlasmaOrdered By: Amber Johnston on 10-28-2023 Lipase [Catalytic activity/Vol] 29.0 U/L Normal 11.0-82.0 [facility] Comment on above: Result Comment: PERF ORMED BY: [place] [address] PATHOLOGIST LATIN DANCER SUMAN NICHOLSON M.D. Performed By: #### B MP #### [address] Lymphocytes [#/volume] in Bl ood by Automated countOrdered By: Amber Johnston on 10-28-2023 Lymphocytes (Bld) [#/Vol] 2.2 10*3/uL Normal 1.00-4.8 [facility] Comment on above: Performed By: #### B MP #### [place] [address] [place] Lymphocytes/100 leukocytes i n Blood by Automated countOrdered By: Amber Johnston on 10-28-2023 Lymphocytes/100 WBC (Bld) 29.9 % Normal . [facility] Comment on above: Performed By: #### B MP #### [place] [address] [place] MCH [Entitic mass] by Automa nick countOrdered By: Amber Johnston on 10-28-2023 MCH (RBC) [Entitic mass] 30.2 pg Normal 24.7-34.3 [facility] Comment on above: Performed By: #### B MP #### [address] MCHC Auto (RBC) [Mass/Vol]Or dered By: Amber Johnston on 10-28-2023 MCHC (RBC) [Mass/Vol] 34.0 g/dL 32.0-35.0 [facility] MCV [Entitic volume] by Auto mated countOrdered By: Amber Johnston on 10-28-2023 MCV (RBC) [Entitic vol] 88.9 fL Normal 80-100 [facility] Comment on above: Performed By: #### B MP #### [facility] [address] [place] [address] Magnesium [Mass/volume] in S krystyna or PlasmaOrdered By: Amber Johnston on 10-28-2023 Magnesium [Mass/Vol] 2.0 mg/dL Normal 1.9-2.7 [facility] Comment on above: Result Comment: PERF ORMED BY: [place] [address] PATHOLOGIST LATIN DANCER SUMAN NICHOLSON M.D. Performed By: #### L ACTO SWBC #### [address] #### CALPROTECT #### [facility] , Monocyte distribution width [Entitic volume] in Blood by AutomatedOrdered By: Amber Johnston on 10-28-2023 Monocyte distribution width Auto (Bld) [Entitic vol] 17.55 % 0.00-20.00 [facility] Neutrophils [#/volume] in Bl ood by Automated countOrdered By: Amber Johnston on 10-28-2023 Neutrophils (Bld) [#/Vol] 4.1 10*3/uL Normal 1.8-7.7 [facility] Comment on above: Performed By: #### B MP #### [address] Nitrite Test strip Ql (U)Ord ered By: Amber Johnston on 10-28-2023 Nitrite Ql (U) Negative Negative [facility] No Panel InformationOrdered By: Amber Johnston on 10-28-2023 Estimated GFR (CKD-EPI) > 60.0 mL/Min [facility] Creatinine Clearance (Chem 160.54 [facility] Nucleated erythrocytes [Pres ence] in Blood by Automated countOrdered By: Amber Johnston on 10-28-2023 Nucleated RBC Auto Ql (Bld) 0.1 /100{WBC} 0-0.5 [facility] Platelet mean volume [Entiti c volume] in Blood by Automated countOrdered By: Amber Johnston on 10-28-2023 Platelet mean volume (Bld) [Entitic vol] 8.0 fL Normal 6.3-10.7 [facility] Comment on above: Performed By: #### B MP #### [address] Platelets [#/volume] in Bloo d by Automated countOrdered By: Amber Johnston on 10-28-2023 Platelets (Bld) [#/Vol] 304 10*3/uL Normal 150-450 [facility] Comment on above: Performed By: #### B MP #### [address] Potassium [Moles/volume] in Serum or PlasmaOrdered By: Amber Johnston on 10-28-2023 Potassium [Moles/Vol] 4.4 mmol/L Normal 3.5-5.1 [facility] Comment on above: Performed By: #### B MP #### [address] Protein Auto test strip (U) [Mass/Vol]Ordered By: Amber Johnston on 10-28-2023 Protein (U) [Mass/Vol] Negative Negative [facility] Protein [Mass/volume] in Ser um or PlasmaOrdered By: Amber Johnston on 10-28-2023 Protein [Mass/Vol] 6.7 g/dL Normal 6.4-8.9 [facility] Comment on above: Performed By: #### B MP #### [place] [address] [place] Respiratory (Upper) Panel, P CRon 10-28-2023 Respiratory (Upper) Panel, PCR Adenovirus Not detected Bordetella parapertussis Not detected Chlamydia pneumoniae Not detected Coronavirus 229E Not detected Coronavirus HKU1 Not detected Coronavirus NL63 Not detected Coronavirus OC43 Not detected Influenza A Not detected Influenza B Not detected Human Metapneumovirus Not detected Mycoplasma pneumoniae Not detected Parainfluenza Virus 1 Not detected Parainfluenza Virus 2 Not detected Parainfluenza Virus 3 Not detected Parainfluenza Virus 4 Not detected Bordetella pertussis-ptxP Not detected Human Rhino/Enterovirus Not detected Resp. Syncytial Virus Not detected COVID-19 Detected/Not Detected Not detected Blank Space -- FLUA TEST INCLUDES Influenza A tests for the following clinically FLUA TEST INCLUDES significant subtypes: FLUA TEST INCLUDES - Influenza A FLUA TEST INCLUDES - Influenza A H1 FLUA TEST INCLUDES - Influenza A H1 2009 FLUA TEST INCLUDES - Influenza A H3 Blank Space -- PERFORMED BY: [place] [address] PATHOLOGIST LATIN DANCER SUMAN NICHOLSON M.D. [facility] Comment on above: Performed By: #### L ACTO SWBC #### [facility] [address] [place] [address] [place] #### CALPROTECT #### [facility] , Respiratory pathogens DNA an d RNA panel - Nasopharynx by MEAGAN with non-probe detectionOrdered By: Amber Johnston on 10-28-2023 Respiratory pathogens DNA and RNA panel MEAGAN+non-probe (Nph) [facility] Serum globulin measurement b y calculation (mass/volume)Ordered By: Amber Johnston on 10-28-2023 Globulin (S) [Mass/Vol] 2.5 g/dL [facility] Comment on above: Performed By: #### B MP #### [facility] [address] [place] [address] Serum or plasma albumin/glob ulin mass ratioOrdered By: Amber Johnston on 10-28-2023 Albumin/Globulin [Mass ratio] 1.7 {ratio} Normal [facility] Comment on above: Performed By: #### B MP #### [address] Serum or plasma anion gap de terminationOrdered By: Amber Johnston on 10-28-2023 Anion gap [Moles/Vol] 9.2 mmol/L Normal 6.0-15.0 [facility] Comment on above: Performed By: #### B MP #### [address] Serum or plasma non-glucuron idated bilirubin measurement (mass/volume)Ordered By: Amber Johnston on 10-28-2023 Bilirubin.indirect [Mass/Vol] 0.2 mg/dL [facility] Sodium [Moles/volume] in Ser um or PlasmaOrdered By: Amber Johnston on 10-28-2023 Sodium [Moles/Vol] 139 mmol/L Normal 136-145 [facility] Comment on above: Performed By: #### B MP #### [address] Specific gravity Auto test s trip (U) [Rel density]Ordered By: Amber Johnston on 10-28-2023 Specific gravity (U) [Rel density] 1.019 1.001-1.03 0 [facility] Urea nitrogen [Mass/volume] in Serum or PlasmaOrdered By: Amber Johnston on 10-28-2023 Urea nitrogen [Mass/Vol] 10 mg/dL Normal 7-25 [facility] Comment on above: Performed By: #### B MP #### [address] Urinalysison 10-28-2023 Appearance (U) Clear Normal Clear [facility] Comment on above: Order Comment: Name Collection Type:: Clean-Voided Midstream Performed By: #### B MP #### [address] [place] [address] [place] Bilirubin,Urine Negative Normal Negative [facility] Comment on above: Order Comment: Name Collection Type:: Clean-Voided Midstream Performed By: #### B MP #### [address] Color (U) Yellow Normal Yellow [facility] Comment on above: Order Comment: Name Collection Type:: Clean-Voided Midstream Performed By: #### B MP #### [address] Glucose Ql (U) Normal Normal Normal [facility] Comment on above: Order Comment: Name Collection Type:: Clean-Voided Midstream Performed By: #### B MP #### [address] Ketones Ql (U) Negative Normal Negative [facility] Comment on above: Order Comment: Name Collection Type:: Clean-Voided Midstream Performed By: #### B MP #### [address] Leukocyte esterase Test strip Ql (U) Negative Normal Negative [facility] Comment on above: Order Comment: Name Collection Type:: Clean-Voided Midstream Performed By: #### B MP #### [address] Nitrite,Urine Negative Normal Negative [facility] Comment on above: Order Comment: Name Collection Type:: Clean-Voided Midstream Performed By: #### B MP #### [place] [address] [place] Occult Blood,Urine Negative Normal Negative [facility] Comment on above: Order Comment: Name Collection Type:: Clean-Voided Midstream Performed By: #### B MP #### [place] [address] [place] pH (U) 6.0 [pH] Normal 5.0-9.0 [facility] Comment on above: Order Comment: Name Collection Type:: Clean-Voided Midstream Performed By: #### B MP #### [place] [id number] [place] Protein,Urine Negative Normal Negative [facility] Comment on above: Order Comment: Name Collection Type:: Clean-Voided Midstream Performed By: #### B MP #### [facility] [address] [place] [address] [place] Specificy [place],Urine 1.019 Normal 1.001-1.03 0 [facility] Comment on above: Order Comment: Name Collection Type:: Clean-Voided Midstream Performed By: #### B MP #### [facility] [address] Urobilinogen,Urine Normal Normal Normal [facility] Comment on above: Order Comment: Name Collection Type:: Clean-Voided Midstream Performed By: #### B MP #### [facility] [address] [place] [address] Urine clarity by refractomet ry automatedOrdered By: Amber Johnston on 10-28-2023 Clarity Refractometry automated (U) Clear Clear [facility] Urine glucose measurement by automated test strip (mass/volume)Ordered By: Amber Johnston on 10-28-2023 Glucose Auto test strip (U) [Mass/Vol] Normal mg/dL Normal [facility] Urine hemoglobin detection b y automated test stripOrdered By: Amber Johnston on 10-28-2023 Hemoglobin Auto test strip Ql (U) Negative Negative [facility] Urine leukocyte esterase det ection by automated test stripOrdered By: Amber Johnston on 10-28-2023 Leukocyte esterase Auto test strip Ql (U) Negative Negative [facility] Urobilinogen Auto test strip (U) [Mass/Vol]Ordered By: Amber Johnston on 10-28-2023 Urobilinogen (U) [Mass/Vol] Normal mg/dL Normal [facility] pH Auto test strip (U)Ordere d By: Amber Johnston on 10-28-2023 pH (U) 6.0 [pH] 5.0-9.0 [facility] Basic Metabolic Panelon Anion gap [Moles/Vol] 9.2 mmol/L Normal 6.0-15.0 [facility] Comment on above: Performed By: #### L ACTO SWBC #### [facility] [address] [place] [address] #### CALPROTECT #### [facility] , Calcium [Mass/Vol] 8.2 mg/dL Low 8.6-10.3 [facility] Comment on above: Performed By: #### L ACTO SWBC #### [facility] [address] [place] [address] #### CALPROTECT #### [facility] , Chloride [Moles/Vol] 107 mmol/L Normal 98-107 [facility] Comment on above: Performed By: #### L ACTO SWBC #### [facility] [address] [place] [address] #### CALPROTECT #### [facility] , CO2 [Moles/Vol] 28.9 mmol/L Normal 21.0-31.0 [facility] Comment on above: Performed By: #### L ACTO SWBC #### [facility] [address] [place] [address] #### CALPROTECT #### [facility] , Creatinine [Mass/Vol] 0.61 mg/dL Normal 0.60-1.20 [facility] Comment on above: Performed By: #### L ACTO SWBC #### [facility] [address] [place] [address] #### CALPROTECT #### [facility] , Creatinine Clr Calc Pharmacy 137.55 Normal [facility] Comment on above: Result Comment: PERF ORMED BY: [place] [address] PATHOLOGIST LATIN DANCER SUMAN NICHOLSON M.D. Performed By: #### L ACTO SWBC #### [facility] [address] [place] [address] [place] #### CALPROTECT #### [facility] , GFR/1.73 sq M.predicted MDRD (S/P/Bld) [Vol rate/Area] mL/min/{1.73_m2} Normal [facility] Comment on above: Performed By: #### L ACTO SWBC #### [facility] [address] [place] [address] [place] #### CALPROTECT #### [facility] , Glucose [Mass/Vol] 81 mg/dL Normal 70-100 [facility] Comment on above: Result Comment: [facility] Glucose Reference Range is dependent on time and content of last meal. Glucose of more than 200 mg/dL in a nonstressed, ambulatory subject supports the diagnosis of Diabetes Mellitus. ADA recommended reference range Performed By: #### L ACTO SWBC #### [facility] [address] [place] [address] #### CALPROTECT #### [facility] , Potassium [Moles/Vol] 4.1 mmol/L Normal 3.5-5.1 [facility] Comment on above: Performed By: #### L ACTO SWBC #### [facility] [address] [place] [address] [place] #### CALPROTECT #### [facility] , Sodium [Moles/Vol] 141 mmol/L Normal 136-145 [facility] Comment on above: Performed By: #### L ACTO SWBC #### [facility] [facility] [address] [place] [address] [place] #### CALPROTECT #### [facility] , Urea nitrogen [Mass/Vol] 6 mg/dL Low 7-25 [facility] Comment on above: Performed By: #### L ACTO SWBC #### [facility] [address] [place] [address] [place] #### CALPROTECT #### [facility] , XR abdomen 1Von 10-23-2023 XR abdomen 1V [facility] Main [place] [id number] XRay Report Signed Patient: Melina Díaz MR#: [id number] : 1975 Acct:[id number] Age/Sex: 48 / F ADM Date: 10/08/23 Loc: 3T Room: [address] [place] [address] Type: ADM IN Attending Dr: David Bejarano MD Copies to: MD David Gramajo MD Ordering Provider: Negro Magana MD Date of Service: 10/23/23 XR/XR abdomen 1V: gas distension Single view of abdomen COMPARISON: 10/17/23 HISTORY: Lower abdominal pain. Nausea and vomiting. THORAX: Not assessed FREE AIR: Supine position limits assessment BOWEL: Mild gaseous intestinal distention. STOOL: Moderate stool throughout the colon. RENAL STONES: No significant stones present. VASCULAR CALCIFICATIONS: Unremarkable SOFT TISSUE: Unremarkable BONES: Unremarkable POSTSURGICAL CHANGES: Stable XR/XR abdomen 1V IMPRESSION: Similar mild gaseous intestinal distention. Similar moderate stool. Impression dictated by: Austin Hernandez M.D.10/23/2023 7:53 AM Dictation Location: [place] [address] Transcribed By: [facility] 10/23/23 075 Dictated By: Austin Hernandez DO 10/23/23 0751 Signed By: 10/23/23 0753 [facility] Basic Metabolic Panelon Anion gap [Moles/Vol] 9.4 mmol/L Normal 6.0-15.0 [facility] Comment on above: Performed By: #### G LULS #### Point of Care testing , Calcium [Mass/Vol] 8.2 mg/dL Low 8.6-10.3 [facility] Comment on above: Performed By: #### G LULS #### Point of Care testing , Chloride [Moles/Vol] 107 mmol/L Normal 98-107 [facility] Comment on above: Performed By: #### G LULS #### Point of Care testing , CO2 [Moles/Vol] 29.8 mmol/L Normal 21.0-31.0 [facility] Comment on above: Performed By: #### G STEFANILS #### Point of Care testing , Creatinine [Mass/Vol] 0.61 mg/dL Normal 0.60-1.20 [facility] Comment on above: Performed By: #### G LULS #### Point of Care testing , Creatinine Clr Calc Pharmacy 137.69 Normal [facility] Comment on above: Result Comment: PERF ORMED BY: [facility] [place] [address] PATHOLOGIST LATIN DANCER SUMAN NICHOLSON M.D. Performed By: #### G STEFANILS #### Point of Care testing , GFR/1.73 sq M.predicted MDRD (S/P/Bld) [Vol rate/Area] mL/min/{1.73_m2} Normal [facility] Comment on above: Performed By: #### G STEFANILS #### Point of Care testing , Glucose [Mass/Vol] 87 mg/dL Normal 70-100 [facility] Comment on above: Result Comment: [facility] Glucose Reference Range is dependent on time and content of last meal. Glucose of more than 200 mg/dL in a nonstressed, ambulatory subject supports the diagnosis of Diabetes Mellitus. ADA recommended reference range Performed By: #### G STEFANILS #### Point of Care testing , Potassium [Moles/Vol] 4.2 mmol/L Normal 3.5-5.1 [facility] Comment on above: Performed By: #### G STEFANILS #### Point of Care testing , Sodium [Moles/Vol] 142 mmol/L Normal 136-145 [facility] Comment on above: Performed By: #### G STEFANILS #### Point of Care testing , Urea nitrogen [Mass/Vol] 5 mg/dL Low 7-25 [facility] Comment on above: Performed By: #### G STEFANILS #### Point of Care testing , Complete Blood Count Auto Di ffon 10-22-2023 Basophils (Bld) [#/Vol] 0.2 10*3/uL Normal 0.0-0.2 [facility] Comment on above: Result Comment: PERF ORMED BY: [facility] [place] [address] PATHOLOGIST LATIN DANCER SUMAN NICHOLSON M.D. Performed By: #### G STEFANILS #### Point of Care testing , Basophils/100 WBC (Bld) 3.2 % Normal . [facility] Comment on above: Performed By: #### G LULS #### Point of Care testing , Eosinophils (Bld) [#/Vol] 0.2 10*3/uL Normal 0.0-0.45 [facility] Comment on above: Performed By: #### G LULS #### Point of Care testing , Eosinophils/100 WBC (Bld) 3.0 % Normal . [facility] Comment on above: Performed By: #### G LULS #### Point of Care testing , Erythrocyte distribution width (RBC) [Ratio] 14.6 % Normal 11.9-15.3 [facility] Comment on above: Performed By: #### G STEFANILS #### Point of Care testing , Hematocrit (Bld) [Volume fraction] 30.2 % Low 34.0-46.4 [facility] Comment on above: Performed By: #### G STEFANILS #### Point of Care testing , Hemoglobin (Bld) [Mass/Vol] 10.2 g/dL Low 11.8-15.4 [facility] Comment on above: Performed By: #### G STEFANILS #### Point of Care testing , Lymphocytes (Bld) [#/Vol] 2.2 10*3/uL Normal 1.00-4.8 [facility] Comment on above: Performed By: #### G LULS #### Point of Care testing , Lymphocytes/100 WBC (Bld) 42.0 % Normal . [facility] Comment on above: Performed By: #### G LULS #### Point of Care testing , MCH (RBC) [Entitic mass] 30.0 pg Normal 24.7-34.3 [facility] Comment on above: Performed By: #### G LULS #### Point of Care testing , MCV (RBC) [Entitic vol] 88.6 fL Normal 80-100 [facility] Comment on above: Performed By: #### Ancelmo STEEN #### Point of Care testing , Mean Corpuscular HGB Conc 33.9 g/dL Normal 32.0-35.0 [facility] Comment on above: Performed By: #### G ENIO #### Point of Care testing , Monocytes (Bld) [#/Vol] 0.6 10*3/uL Normal 0.0-0.8 [facility] Comment on above: Performed By: #### Ancelmo STEEN #### Point of Care testing , Monocytes/100 WBC (Bld) 11.4 % Normal . [facility] Comment on above: Performed By: #### Ancelmo KOLS #### Point of Care testing , Neutrophils (Bld) [#/Vol] 2.1 10*3/uL Normal 1.8-7.7 [facility] Comment on above: Performed By: #### Ancelmo STEEN #### Point of Care testing , Neutrophils/100 WBC (Bld) 40.4 % Normal . [facility] Comment on above: Performed By: #### Ancelmo STEEN #### Point of Care testing , NRBC% 0.1 /100{WBC} Normal 0-0.5 [facility] Comment on above: Performed By: #### Ancelmo STEEN #### Point of Care testing , Platelet mean volume (Bld) [Entitic vol] 8.1 fL Normal 6.3-10.7 [facility] Comment on above: Performed By: #### Ancelmo STEEN #### Point of Care testing , Platelets (Bld) [#/Vol] 240 10*3/uL Normal 150-450 [facility] Comment on above: Performed By: #### Ancelmo STEEN #### Point of Care testing , RBC (Bld) [#/Vol] 3.41 10*6/uL Low 3.60-5.00 [facility] Comment on above: Performed By: #### Ancelmo STEEN #### Point of Care testing , WBC (Bld) [#/Vol] 5.2 10*3/uL Normal 3.8-11.6 [facility] Comment on above: Performed By: #### G LULS #### Point of Care testing , Christian 10-22-2023 L Specimen: Received: 10/22/23 Status: FUNMILAYO Rosas Num: [id number] Spec Type: Surgical Subm Dr: Stepan Fuentes MD Tissues: A Colon Biopsy (SURVELLEINCE) Procedures: HE/2, Gross/Micro L4 Age/ Patient Sex Location Account Attending Physician Melina Díaz Julia 48/F 3T [id number] David Bejarano MD SPEC NUM: RECD: 10/22/23 STATUS: FUNMILAYO ROSAS NUM: [id number] DIANELYS: 10/22/23 DR: Stepan Fuentes MD ENTERED: 10/22/[address] [facility] DR: SPEC TYPE: Surgical DEPT: S ORDERED: HE/2, Gross/Micro L4 ORDERED: HE/2, Gross/Micro L4 Pathological Diagnosis : - Unremarkable colonic mucosa. - Negative for lymphocytic colitis, collagenous colitis and other forms of colitis. Clinical Information Vomiting, C. difficile history, blood in stool, rule out microscopic colitis Gross Description Received in formalin labeled with the patient's name, date of and surveillance colon biopsies are three rodriguez tissues ranging from 0.5 x 0.2 x 0.2 cm to 0.7 x 0.3 x 0.2 cm. Entirely submitted in one cassette labeled A1. Microscopic Description Microscopic evaluation confirms the above rendered diagnosis. CPT Codes 25293 Specimen: [id number] Received: 10/22/23 Status: FUNMILAYO Rosas Num: [id number] Spec Type: Surgical Subm Dr: Stepan Fuentes MD Tissues: A Colon Biopsy (SURVELLEINCE) Procedures: HE/2, Gross/Micro L4 Patient: Melina Díaz [id number] (Continued) Signed (signature on file) Mary Kate Rodriguez MD 10/23/23 1146 Normal [facility] Partial Thromboplastin Timeo n 10-22-2023 aPTT Coag (Bld) [Time] 33.7 s Normal 25.1-36.5 [facility] Comment on above: Result Comment: A he matocrit value greater than 55% may lead to inaccurate results in coagulation testing. Patients having hematocrit values >55% require a special collection tube for coagulation studies. Please contact the laboratory at [phone] for redraw instructions. PERFORMED BY: [facility] [place] [address] PATHOLOGIST LATIN DANCER JIANLAN SUN M.D. Performed By: #### G LULS #### Point of Care testing , Prothrombin Time INRon 10-22 INR Coag (PPP) [Relative time] 1.1 {INR} Normal [facility] Comment on above: Result Comment: INR Therapeutic Range A) Pre- and Peroperative OAT started two weeks before surgery. NOT HIP SURGERY: 1.5 - 2.5 HIP SURGERY: 2 - 3 B) Primary and secondary prevention of venous THROMBOSIS: 2 - 3 C) Active venous thrombosis, pulmonary embolism and prevention of recurrent venous thrombosis: 2 - 3 D) Prevention of arterial thromboembolism including patients with mechanical heart valves: 3 - 4.5 Performed By: #### G LULS #### Point of Care testing , PT Coag (PPP) [Time] 12.8 s Normal 9.0-12.9 [facility] Comment on above: Result Comment: A he matocrit value greater than 55% may lead to inaccurate results in coagulation testing. Patients having hematocrit values >55% require a special collection tube for coagulation studies. Please contact the laboratory at [phone] for redraw instructions. Performed By: #### G LULS #### Point of Care testing , CNPNon 10-21-[address] [facility] HCG,Urineon 10-21-2023 Beta HCG ( test) Ql (U) Negative Normal [facility] Comment on above: Result Comment: PERF ORMED BY: [place] [address] PATHOLOGIST LATIN DANCER SUMAN NICHOLSON M.D. Performed By: #### C USTOOL #### [address] Basic Metabolic Panelon 020 Anion gap [Moles/Vol] 8.4 mmol/L Normal 6.0-15.0 [facility] Comment on above: Performed By: #### G LULS #### Point of Care testing , Calcium [Mass/Vol] 8.0 mg/dL Low 8.6-10.3 [facility] Comment on above: Performed By: #### G LULS #### Point of Care testing , Chloride [Moles/Vol] 110 mmol/L High 98-107 [facility] Comment on above: Performed By: #### G LULS #### Point of Care testing , CO2 [Moles/Vol] 26.6 mmol/L Normal 21.0-31.0 [facility] Comment on above: Performed By: #### G LULS #### Point of Care testing , Creatinine [Mass/Vol] 0.58 mg/dL Low 0.60-1.20 [facility] Comment on above: Performed By: #### G LULS #### Point of Care testing , Creatinine Clr Calc Pharmacy 142.62 [facility] Comment on above: Result Comment: PERF ORMED BY: [facility] [address] [place] [address] PATHOLOGIST LATIN DANCER SUMAN NICHOLSON M.D. Performed By: #### G LULS #### Point of Care testing , GFR/1.73 sq M.predicted MDRD (S/P/Bld) [Vol rate/Area] mL/min/{1.73_m2} [facility] Comment on above: Performed By: #### G LULS #### Point of Care testing , Glucose [Mass/Vol] 90 mg/dL Normal 70-100 [facility] Comment on above: Result Comment: [place] Glucose Reference Range is dependent on time and content of last meal. Glucose of more than 200 mg/dL in a nonstressed, ambulatory subject supports the diagnosis of Diabetes Mellitus. ADA recommended reference range Performed By: #### G LULS #### Point of Care testing , Potassium [Moles/Vol] 4.0 mmol/L Normal 3.5-5.1 [facility] Comment on above: Performed By: #### G LULS #### Point of Care testing , Sodium [Moles/Vol] 141 mmol/L Normal 136-145 [facility] Comment on above: Performed By: #### G LULS #### Point of Care testing , Urea nitrogen [Mass/Vol] 6 mg/dL Low 7-25 [facility] Comment on above: Performed By: #### G LULS #### Point of Care testing , Clostridium Difficileon 02-0 Clostridium Difficile Negative Normal Negative [facility] Comment on above: Result Comment: Test ing performed by RT-PCR PERFORMED BY: [place] [address] PATHOLOGIST LATIN DANCER SUMAN NICHOLSON M.D. Performed By: #### C DT #### [place] [address] [place] Dipstick and Microscopicon 0 10-19-2023 Appearance (U) Clear Normal Clear [facility] Comment on above: Order Comment: Name Collection Type:: Clean-Voided Midstream Performed By: #### G LULS #### Point of Care testing , Bacteria,Urine 1+ High None Seen [facility] Comment on above: Order Comment: Name Collection Type:: Clean-Voided Midstream Performed By: #### G LULS #### Point of Care testing , Bilirubin,Urine Negative Normal Negative [facility] Comment on above: Order Comment: Name Collection Type:: Clean-Voided Midstream Performed By: #### G LULS #### Point of Care testing , Color (U) Yellow Normal Yellow [facility] Comment on above: Order Comment: Name Collection Type:: Clean-Voided Midstream Performed By: #### G LULS #### Point of Care testing , Glucose Ql (U) Normal Normal Normal [facility] Comment on above: Order Comment: Name Collection Type:: Clean-Voided Midstream Performed By: #### G LULS #### Point of Care testing , Hyaline Casts,Urine 0-8 Normal 0-8 [facility] Comment on above: Order Comment: Name Collection Type:: Clean-Voided Midstream Result Comment: PERF ORMED BY: [place] [address] PATHOLOGIST LATIN DANCER SUMAN NICHOLSON M.D. Performed By: #### G LULS #### Point of Care testing , Ketones Ql (U) Negative Normal Negative [facility] Comment on above: Order Comment: Name Collection Type:: Clean-Voided Midstream Performed By: #### G LULS #### Point of Care testing , Leukocyte esterase Test strip Ql (U) 2+ High Negative [facility] Comment on above: Order Comment: Name Collection Type:: Clean-Voided Midstream Performed By: #### G LULS #### Point of Care testing , Nitrite,Urine Negative Normal Negative [facility] Comment on above: Order Comment: Name Collection Type:: Clean-Voided Midstream Performed By: #### G LULS #### Point of Care testing , Occult Blood,Urine Negative Normal Negative [facility] Comment on above: Order Comment: Name Collection Type:: Clean-Voided Midstream Result Comment: PERF ORMED BY: [facility] [address] [place] [address] PATHOLOGIST LATIN DANCER SUMAN NICHOLSON M.D. Performed By: #### G LULS #### Point of Care testing , pH (U) 6.5 [pH] Normal 5.0-9.0 [facility] Comment on above: Order Comment: Name Collection Type:: Clean-Voided Midstream Performed By: #### G LULS #### Point of Care testing , Protein,Urine Negative Normal Negative [facility] Comment on above: Order Comment: Name Collection Type:: Clean-Voided Midstream Performed By: #### G LULS #### Point of Care testing , RBC,Urine None Seen Normal 0-4 [facility] Comment on above: Order Comment: Name Collection Type:: Clean-Voided Midstream Performed By: #### G LULS #### Point of Care testing , Specificy [place],Urine 1.015 Normal 1.001-1.03 0 [facility] Comment on above: Order Comment: Name Collection Type:: Clean-Voided Midstream Performed By: #### G LULS #### Point of Care testing , Squamous Epithelial Cell,Urine 0-1 Normal 0-2 [facility] Comment on above: Order Comment: Name Collection Type:: Clean-Voided Midstream Performed By: #### G LULS #### Point of Care testing , Urobilinogen,Urine Normal Normal Normal [facility] Comment on above: Order Comment: Name Collection Type:: Clean-Voided Midstream Performed By: #### G LULS #### Point of Care testing , WBC LM.HPF (Urine sed) [#/Area] 0 /[HPF] Normal 0-4 [facility] Comment on above: Order Comment: Name Collection Type:: Clean-Voided Midstream Performed By: #### G LULS #### Point of Care testing , Basic Metabolic Panelon Anion gap [Moles/Vol] 6.0 mmol/L Normal 6.0-15.0 [facility] Comment on above: Performed By: #### B MP #### [facility] [address] [place] [address] Calcium [Mass/Vol] 8.0 mg/dL Low 8.6-10.3 [facility] Comment on above: Performed By: #### B MP #### [facility] [address] [place] [address] Chloride [Moles/Vol] 111 mmol/L High 98-107 [facility] Comment on above: Performed By: #### B MP #### [facility] [address] [place] [address] CO2 [Moles/Vol] 28.9 mmol/L Normal 21.0-31.0 [facility] Comment on above: Performed By: #### B MP #### [facility] [address] [place] [address] [place] Creatinine [Mass/Vol] 0.63 mg/dL Normal 0.60-1.20 [facility] Comment on above: Performed By: #### B MP #### [facility] [address] [place] [address] [place] Creatinine Clr Calc Pharmacy 130.95 Normal [facility] Comment on above: Result Comment: PERF ORMED BY: [place] [address] PATHOLOGIST LATIN DANCER SUMAN NICHOLSON M.D. Performed By: #### B MP #### [facility] [address] GFR/1.73 sq M.predicted MDRD (S/P/Bld) [Vol rate/Area] mL/min/{1.73_m2} Normal [facility] Comment on above: Performed By: #### B MP #### [address] Glucose [Mass/Vol] 90 mg/dL Normal 70-100 [facility] Comment on above: Result Comment: [facility] Glucose Reference Range is dependent on time and content of last meal. Glucose of more than 200 mg/dL in a nonstressed, ambulatory subject supports the diagnosis of Diabetes Mellitus. ADA recommended reference range Performed By: #### B MP #### [address] Potassium [Moles/Vol] 3.9 mmol/L Normal 3.5-5.1 [facility] Comment on above: Performed By: #### B MP #### [address] Sodium [Moles/Vol] 142 mmol/L Normal 136-145 [facility] Comment on above: Performed By: #### B MP #### [address] Urea nitrogen [Mass/Vol] 6 mg/dL Low 7-25 [facility] Comment on above: Performed By: #### B MP #### [address] Clostridium Difficileon - Clostridium Difficile Negative Normal Negative [facility] Comment on above: Result Comment: Test ing performed by RT-PCR PERFORMED BY: [place] [address] PATHOLOGIST LATIN DANCER SUMAN NICHOLSON M.D. Performed By: #### C DT #### [address] Complete Blood Count Auto Di ffon 10-18-2023 Basophils (Bld) [#/Vol] 0.0 10*3/uL Normal 0.0-0.2 [facility] Comment on above: Result Comment: PERF ORMED BY: [facility] [place] [address] PATHOLOGIST LATIN DANCER SUMAN NICHOLSON M.D. Performed By: #### G LULS #### Point of Care testing , Basophils/100 WBC (Bld) 0.9 % Normal . [facility] Comment on above: Performed By: #### G LULS #### Point of Care testing , Eosinophils (Bld) [#/Vol] 0.1 10*3/uL Normal 0.0-0.45 [facility] Comment on above: Performed By: #### G LULS #### Point of Care testing , Eosinophils/100 WBC (Bld) 2.0 % Normal . [facility] Comment on above: Performed By: #### G LULS #### Point of Care testing , Erythrocyte distribution width (RBC) [Ratio] 14.8 % Normal 11.9-15.3 [facility] Comment on above: Performed By: #### G LULS #### Point of Care testing , Hematocrit (Bld) [Volume fraction] 30.2 % Low 34.0-46.4 [facility] Comment on above: Performed By: #### G LULS #### Point of Care testing , Hemoglobin (Bld) [Mass/Vol] 10.2 g/dL Low 11.8-15.4 [facility] Comment on above: Performed By: #### G LULS #### Point of Care testing , Lymphocytes (Bld) [#/Vol] 1.9 10*3/uL Normal 1.00-4.8 [facility] Comment on above: Performed By: #### G LULS #### Point of Care testing , Lymphocytes/100 WBC (Bld) 39.8 % Normal . [facility] Comment on above: Performed By: #### G LULS #### Point of Care testing , MCH (RBC) [Entitic mass] 30.1 pg Normal 24.7-34.3 [facility] Comment on above: Performed By: #### G LULS #### Point of Care testing , MCV (RBC) [Entitic vol] 89.2 fL Normal 80-100 [facility] Comment on above: Performed By: #### Ancelmo STEEN #### Point of Care testing , Mean Corpuscular HGB Conc 33.8 g/dL Normal 32.0-35.0 [facility] Comment on above: Performed By: #### Ancelmo STEEN #### Point of Care testing , Monocytes (Bld) [#/Vol] 0.5 10*3/uL Normal 0.0-0.8 [facility] Comment on above: Performed By: #### Ancelmo STEEN #### Point of Care testing , Monocytes/100 WBC (Bld) 11.3 % Normal . [facility] Comment on above: Performed By: #### Ancelmo STEEN #### Point of Care testing , Neutrophils (Bld) [#/Vol] 2.2 10*3/uL Normal 1.8-7.7 [facility] Comment on above: Performed By: #### Ancelmo STEEN #### Point of Care testing , Neutrophils/100 WBC (Bld) 46.0 % Normal . [facility] Comment on above: Performed By: #### Ancelmo STEEN #### Point of Care testing , NRBC% 0.0 /100{WBC} Normal 0-0.5 [facility] Comment on above: Performed By: #### Ancelmo STEEN #### Point of Care testing , Platelet mean volume (Bld) [Entitic vol] 8.5 fL Normal 6.3-10.7 [facility] Comment on above: Performed By: #### Ancelmo STEEN #### Point of Care testing , Platelets (Bld) [#/Vol] 218 10*3/uL Normal 150-450 [facility] Comment on above: Performed By: #### Ancelmo STEEN #### Point of Care testing , RBC (Bld) [#/Vol] 3.38 10*6/uL Low 3.60-5.00 [facility] Comment on above: Performed By: #### Ancelmo STEEN #### Point of Care testing , WBC (Bld) [#/Vol] 4.8 10*3/uL Normal 3.8-11.6 [facility] Comment on above: Performed By: #### G ENIO #### Point of Care testing , Basic Metabolic Panelon 02-0 Anion gap [Moles/Vol] 9.9 mmol/L Normal 6.0-15.0 [facility] Comment on above: Performed By: #### C DT #### [facility] [address] Calcium [Mass/Vol] 8.6 mg/dL Normal 8.6-10.3 [facility] Comment on above: Performed By: #### C DT #### [facility] [address] Chloride [Moles/Vol] 109 mmol/L High 98-107 [facility] Comment on above: Performed By: #### C DT #### [address] CO2 [Moles/Vol] 27.1 mmol/L Normal 21.0-31.0 [facility] Comment on above: Performed By: #### C DT #### [address] Creatinine [Mass/Vol] 0.62 mg/dL Normal 0.60-1.20 [facility] Comment on above: Performed By: #### C DT #### [place] [address] [place] Creatinine Clr Calc Pharmacy 133.34 [facility] Comment on above: Result Comment: PERF ORMED BY: [place] [address] PATHOLOGIST LATIN DANCER SUMAN NICHOLSON M.D. Performed By: #### C DT #### [place] [address] [place] GFR/1.73 sq M.predicted MDRD (S/P/Bld) [Vol rate/Area] mL/min/{1.73_m2} [facility] Comment on above: Performed By: #### C DT #### [address] Glucose [Mass/Vol] 124 mg/dL High 70-100 [facility] [facility] Comment on above: Result Comment: [facility] Glucose Reference Range is dependent on time and content of last meal. Glucose of more than 200 mg/dL in a nonstressed, ambulatory subject supports the diagnosis of Diabetes Mellitus. ADA recommended reference range Performed By: #### C DT #### [address] Potassium [Moles/Vol] 4.0 mmol/L Normal 3.5-5.1 [facility] Comment on above: Performed By: #### C DT #### [address] Sodium [Moles/Vol] 142 mmol/L Normal 136-145 [facility] Comment on above: Performed By: #### C DT #### [address] Urea nitrogen [Mass/Vol] 7 mg/dL Normal 7-25 [facility] Comment on above: Performed By: #### C DT #### [address] Complete Blood Count Auto Di ffon 10-17-2023 Basophils (Bld) [#/Vol] 0.0 10*3/uL Normal 0.0-0.2 [facility] Comment on above: Result Comment: PERF ORMED BY: [place] [address] PATHOLOGIST LATIN DANCER SUMAN NICHOLSON M.D. Performed By: #### C DT #### [address] Basophils/100 WBC (Bld) 0.8 % Normal . [facility] Comment on above: Performed By: #### C DT #### [address] Eosinophils (Bld) [#/Vol] 0.1 10*3/uL Normal 0.0-0.45 [facility] Comment on above: Performed By: #### C DT #### [address] Eosinophils/100 WBC (Bld) 2.0 % Normal . [facility] Comment on above: Performed By: #### C DT #### [address] Erythrocyte distribution width (RBC) [Ratio] 14.8 % Normal 11.9-15.3 [facility] Comment on above: Performed By: #### C DT #### [address] Hematocrit (Bld) [Volume fraction] 34.4 % Normal 34.0-46.4 [facility] Comment on above: Performed By: #### C DT #### [address] Hemoglobin (Bld) [Mass/Vol] 11.6 g/dL Low 11.8-15.4 [facility] Comment on above: Performed By: #### C DT #### [address] Lymphocytes (Bld) [#/Vol] 1.4 10*3/uL Normal 1.00-4.8 [facility] Comment on above: Performed By: #### C DT #### [address] Lymphocytes/100 WBC (Bld) 26.9 % Normal . [facility] Comment on above: Performed By: #### C DT #### [address] MCH (RBC) [Entitic mass] 30.1 pg Normal 24.7-34.3 [facility] Comment on above: Performed By: #### C DT #### [address] MCV (RBC) [Entitic vol] 89.1 fL Normal 80-100 [facility] Comment on above: Performed By: #### C DT #### [address] [address] [place] Mean Corpuscular HGB Conc 33.8 g/dL Normal 32.0-35.0 [facility] Comment on above: Performed By: #### C DT #### [address] Monocytes (Bld) [#/Vol] 0.5 10*3/uL Normal 0.0-0.8 [facility] Comment on above: Performed By: #### C DT #### [address] Monocytes/100 WBC (Bld) 8.8 % Normal . [facility] Comment on above: Performed By: #### C DT #### [address] Neutrophils (Bld) [#/Vol] 3.2 10*3/uL Normal 1.8-7.7 [facility] Comment on above: Performed By: #### C DT #### [address] Neutrophils/100 WBC (Bld) 61.5 % Normal . [facility] Comment on above: Performed By: #### C DT #### [address] NRBC% 0.1 /100{WBC} Normal 0-0.5 [facility] Comment on above: Performed By: #### C DT #### [address] Platelet mean volume (Bld) [Entitic vol] 8.2 fL Normal 6.3-10.7 [facility] Comment on above: Performed By: #### C DT #### [address] Platelets (Bld) [#/Vol] 248 10*3/uL Normal 150-450 [facility] Comment on above: Performed By: #### C DT #### [address] RBC (Bld) [#/Vol] 3.86 10*6/uL Normal 3.60-5.00 [facility] Comment on above: Performed By: #### C DT #### [address] WBC (Bld) [#/Vol] 5.2 10*3/uL Normal 3.8-11.6 [facility] Comment on above: Performed By: #### C DT #### [address] Lactoferrin, Stool WBCon Lactoferrin, Stool WBC LACTOFERRIN Positive for Fecal Lactoferrin Review patient history for chronic inflammatory conditions and status which can cause positive results unrelated to acute infectious disease. -- Reference range = Negative PERFORMED BY: [place] [address] PATHOLOGIST LATIN DANCER SUMAN NICHOLSON M.D. [facility] Comment on above: Performed By: #### L ACTO SWBC #### [address] XR abdomen min 2Von 10-17-19 24 XR abdomen min 2V [facility] [place] [address] XRay Report Signed Patient: Melina Díaz MR#: [id number] : 1975 Acct:[id number] Age/Sex: 48 / F ADM Date: 10/08/23 Loc: Room: [address] [place] [address] Type: ADM IN Attending Dr: David Bejarano MD Copies to: David Bejarano MD Ordering Provider: David Bejarano MD Date of Service: 10/17/23 XR/XR abdomen min 2V: abdominal distension ABDOMEN SERIES - 2 views COMPARISON: 10/16/[address] 10/08/2023 CLINICAL DATA: Abdominal pain and weakness. Supine and upright views of the abdomen pelvis were obtained. There is air and stool along the colon with some associated air-fluid levels. There is no dilated small bowel. No free air is seen. No soft tissue masses are identified. Calcifications in the lower right paraspinal region were shown to be vascular at the time of the comparison CT. There are clips from prior cholecystectomy. There are also clips and suture material in the epigastric and left paraspinal region from prior bariatric surgery. There is levoscoliosis. XR/XR abdomen min 2V IMPRESSION: NONSPECIFIC BOWEL GAS PATTERN, WITHOUT SMALL BOWEL DILATATION. Impression dictated by: Yanci Huddleston M.D.10/17/2023 8:38 AM Dictation Location: [place] [address] Transcribed By: [facility] 10/17/23 0838 Dictated By: Yanci Huddleston MD 10/17/23 0834 Signed By: 10/17/23 0838 Normal [facility] CNPNon 10-16-[address] [facility] Complete Blood Count Auto Di ffon 10-16-2023 Basophils (Bld) [#/Vol] 0.1 10*3/uL Normal 0.0-0.2 [facility] Comment on above: Result Comment: PERF ORMED BY: [place] [address] PATHOLOGIST LATIN DANCER SUMAN NICHOLSON M.D. Performed By: #### C DT #### [address] Basophils/100 WBC (Bld) 1.1 % Normal . [facility] Comment on above: Performed By: #### C DT #### [address] Eosinophils (Bld) [#/Vol] 0.1 10*3/uL Normal 0.0-0.45 [facility] Comment on above: Performed By: #### C DT #### [place] [address] Eosinophils/100 WBC (Bld) 2.7 % Normal . [facility] Comment on above: Performed By: #### C DT #### [address] Erythrocyte distribution width (RBC) [Ratio] 14.7 % Normal 11.9-15.3 [facility] Comment on above: Performed By: #### C DT #### [address] Hematocrit (Bld) [Volume fraction] 32.5 % Low 34.0-46.4 [facility] Comment on above: Performed By: #### C DT #### [address] Hemoglobin (Bld) [Mass/Vol] 10.7 g/dL Low 11.8-15.4 [facility] Comment on above: Performed By: #### C DT #### [address] Lymphocytes (Bld) [#/Vol] 1.8 10*3/uL Normal 1.00-4.8 [facility] Comment on above: Performed By: #### C DT #### [address] Lymphocytes/100 WBC (Bld) 36.0 % Normal . [facility] Comment on above: Performed By: #### C DT #### [address] MCH (RBC) [Entitic mass] 29.9 pg Normal 24.7-34.3 [facility] Comment on above: Performed By: #### C DT #### [address] MCV (RBC) [Entitic vol] 90.4 fL Normal 80-100 [facility] Comment on above: Performed By: #### C DT #### [address] Mean Corpuscular HGB Conc 33.1 g/dL Normal 32.0-35.0 [facility] Comment on above: Performed By: #### C DT #### [facility] [address] [place] [address] [place] Monocytes (Bld) [#/Vol] 0.5 10*3/uL Normal 0.0-0.8 [facility] Comment on above: Performed By: #### C DT #### [facility] [address] Monocytes/100 WBC (Bld) 10.0 % Normal . [facility] Comment on above: Performed By: #### C DT #### [address] Neutrophils (Bld) [#/Vol] 2.5 10*3/uL Normal 1.8-7.7 [facility] Comment on above: Performed By: #### C DT #### [address] Neutrophils/100 WBC (Bld) 50.2 % Normal . [facility] Comment on above: Performed By: #### C DT #### [address] NRBC% 0.1 /100{WBC} Normal 0-0.5 [facility] Comment on above: Performed By: #### C DT #### [address] Platelet mean volume (Bld) [Entitic vol] 8.3 fL Normal 6.3-10.7 [facility] Comment on above: Performed By: #### C DT #### [address] Platelets (Bld) [#/Vol] 236 10*3/uL Normal 150-450 [facility] Comment on above: Performed By: #### C DT #### [address] RBC (Bld) [#/Vol] 3.59 10*6/uL Low 3.60-5.00 [facility] Comment on above: Performed By: #### C DT #### [facility] [address] [place] [address] WBC (Bld) [#/Vol] 5.1 10*3/uL Normal 3.8-11.6 [facility] Comment on above: Performed By: #### C DT #### [facility] [address] [place] [address] NM gastric emptying studyon 10-16-2023 NM gastric emptying study [facility] [place] [address] [place] [address] Nuclear Medicine Report Signed Patient: Melina Díaz MR#: [id number] : 1975 Acct:[id number] Age/Sex: 48 / F ADM Date: 10/08/23 Loc: Room: [address] [place] [address] Type: ADM IN Attending Dr: David Bejarano MD Copies to: Masoud Molina Jr, DO Lawrence R Mccormack, MD Obaydah M Daromar, MD Ordering Provider: Stepan Fuentes MD Date of Service: 10/16/23 NM/NM gastric emptying study: *DOSEORDERED*Nausea and vomiting after gastric bypass GASTRIC EMPTYING STUDY: CLINICAL HISTORY: Nausea vomiting abdominal pain. History of gastric bypass surgery. FINDINGS: Following the oral ingestion of 1.1 mCi Tc 99m labeled sulfur colloid mixed with oatmeal, anterior imaging of the abdomen was performed out to 90 minutes. There is appropriate emptying of the stomach on the static and dynamic images. A time/activity curve was generated. The T 1/2 for gastric emptying is 90 minutes. NM/NM gastric emptying study IMPRESSION: DELAYED GASTRIC TRANSIT. PARTIAL GASTRIC OUTLET OBSTRUCTION CANNOT BE EXCLUDED. CORRELATION WITH ENDOSCOPY IS SUGGESTED. Impression dictated by: Masoud Molina Jr., D.O.10/16/2023 12:49 PM Dictation Location: [place] [address] Transcribed By: JACKIE 10/16/23 1249 Dictated By: Masoud Molina Jr, DO 10/16/23 1246 Signed By: 10/16/23 1249 Normal [facility] Thyroid Stimulating Hormoneo n 10-16-2023 TSH Qn 1.30 m[IU]/L Normal 0.45-5.33 [facility] Comment on above: Result Comment: PERF ORMED BY: [place] [address] PATHOLOGIST LATIN DANCER SUMAN NICHOLSON M.D. Performed By: #### G LULS #### Point of Care testing , XR abdomen min 2Von 10-16-19 XR abdomen min 2V [facility] Main [place] [address] [place] [address] XRay Report Signed Patient: Melina Díaz MR#: [id number] : 1975 Acct:[id number] Age/Sex: 48 / F ADM Date: 10/08/23 Loc: Room: [address] [place] [address] Type: ADM IN Attending Dr: David Bejarano MD Copies to: MD David Gramajo MD Ordering Provider: Negro Magana MD Date of Service: 10/16/23 XR/XR abdomen min 2V: eval for gas pattern Abdomen 2 views. Reason for exam: Abdominal pain that radiates around the left flank for 2 months with nausea vomiting diarrhea COMPARISON: CT abdomen and pelvis 10/08/2023. FINDINGS: Nonspecific bowel gas pattern. Scattered postsurgical change. No free air. No suspicious urinary tract calcifications. Osseous structures demonstrate degenerative change. XR/XR abdomen min 2V IMPRESSION: No acute process. Impression dictated by: Masoud Molina Jr., D.OZarina10/16/2023 3:51 PM Dictation Location: [place] [address] Transcribed By: [facility] 10/16/23 1551 Dictated By: Masoud Molina Jr, DO 10/16/23 1549 Signed By: 10/16/23 1551 Normal [facility] Calprotectin, Fecalon 2023 Calprotectin, Fecal 130 High 0-120 [facility] Comment on above: Result Comment: Conc entration Interpretation Follow-Up < 5 - 50 ug/g Normal None >50 -120 ug/g Borderline Re-evaluate in 4-6 weeks >120 ug/g Abnormal Repeat as clinically indicated Performed at: [facility] [address] [id number] Systems Administrator: Joselin Solis MD, Phone: [phone] PERFORMED BY: [place] [address] PATHOLOGIST LATIN DANCER SUMAN NICHOLSON M.D. Performed By: #### L ACTO SWBC #### [address] #### CALPROTECT #### [facility] , Complete Blood Count Auto Di ffon 10-15-2023 Basophils (Bld) [#/Vol] 0.0 10*3/uL Normal 0.0-0.2 [facility] Comment on above: Result Comment: PERF ORMED BY: [place] [address] PATHOLOGIST LATIN DANCER SUMAN NICHOLSON M.D. Performed By: #### L ACTO SWBC #### [address] Basophils/100 WBC (Bld) 0.5 % Normal . [facility] Comment on above: Performed By: #### L ACTO SWBC #### [address] Eosinophils (Bld) [#/Vol] 0.1 10*3/uL Normal 0.0-0.45 [facility] Comment on above: Performed By: #### L ACTO SWBC #### [address] Eosinophils/100 WBC (Bld) 2.2 % Normal . [facility] Comment on above: Performed By: #### L ACTO SWBC #### [address] Erythrocyte distribution width (RBC) [Ratio] 15.0 % Normal 11.9-15.3 [facility] Comment on above: Performed By: #### L ACTO SWBC #### [address] Hematocrit (Bld) [Volume fraction] 32.8 % Low 34.0-46.4 [facility] Comment on above: Performed By: #### L ACTO SWBC #### [address] Hemoglobin (Bld) [Mass/Vol] 11.0 g/dL Low 11.8-15.4 [facility] Comment on above: Performed By: #### L ACTO SWBC #### [address] Lymphocytes (Bld) [#/Vol] 1.9 10*3/uL Normal 1.00-4.8 [facility] Comment on above: Performed By: #### L ACTO SWBC #### [address] Lymphocytes/100 WBC (Bld) 30.1 % Normal . [facility] Comment on above: Performed By: #### L ACTO SWBC #### [address] MCH (RBC) [Entitic mass] 29.9 pg Normal 24.7-34.3 [facility] Comment on above: Performed By: #### L ACTO SWBC #### [address] MCV (RBC) [Entitic vol] 89.6 fL Normal 80-100 [facility] Comment on above: Performed By: #### L ACTO SWBC #### [address] Mean Corpuscular HGB Conc 33.3 g/dL Normal 32.0-35.0 [facility] Comment on above: Performed By: #### L ACTO SWBC #### [address] Monocytes (Bld) [#/Vol] 0.6 10*3/uL Normal 0.0-0.8 [facility] Comment on above: Performed By: #### L ACTO SWBC #### [address] Monocytes/100 WBC (Bld) 10.0 % Normal . [facility] Comment on above: Performed By: #### L ACTO SWBC #### [facility] [address] Neutrophils (Bld) [#/Vol] 3.6 10*3/uL Normal 1.8-7.7 [facility] Comment on above: Performed By: #### L ACTO SWBC #### [facility] [address] Neutrophils/100 WBC (Bld) 57.2 % Normal . [facility] Comment on above: Performed By: #### L ACTO SWBC #### [facility] [address] NRBC% 0.2 /100{WBC} Normal 0-0.5 [facility] Comment on above: Performed By: #### L ACTO SWBC #### [facility] [address] Platelet mean volume (Bld) [Entitic vol] 8.3 fL Normal 6.3-10.7 [facility] Comment on above: Performed By: #### L ACTO SWBC #### [facility] [address] [place] [address] [place] Platelets (Bld) [#/Vol] 209 10*3/uL Normal 150-450 [facility] Comment on above: Performed By: #### L ACTO SWBC #### [facility] [address] [place] [address] [place] RBC (Bld) [#/Vol] 3.67 10*6/uL Normal 3.60-5.00 [facility] Comment on above: Performed By: #### L ACTO SWBC #### [facility] [address] WBC (Bld) [#/Vol] 6.3 10*3/uL Normal 3.8-11.6 [facility] Comment on above: Performed By: #### L ACTO SWBC #### [address] Lactoferrin, Stool WBCon Lactoferrin, Stool WBC LACTOFERRIN Positive for Fecal Lactoferrin Review patient history for chronic inflammatory conditions and status which can cause positive results unrelated to acute infectious disease. -- Reference range = Negative PERFORMED BY: [place] [address] PATHOLOGIST LATIN DANCER SUMAN NICHOLSON M.D. Normal [facility] Comment on above: Performed By: #### L ACTO SWBC #### [facility] [address] [place] [address] #### CALPROTECT #### [facility] , Complete Blood Count Auto Di ffon 10-14-2023 Basophils (Bld) [#/Vol] 0.1 10*3/uL Normal 0.0-0.2 [facility] Comment on above: Result Comment: PERF ORMED BY: [place] [address] PATHOLOGIST LATIN DANCER SUMAN NICHOLSON M.D. Performed By: #### L ACTO SWBC #### [address] Basophils/100 WBC (Bld) 0.9 % Normal . [facility] Comment on above: Performed By: #### L ACTO SWBC #### [address] Eosinophils (Bld) [#/Vol] 0.1 10*3/uL Normal 0.0-0.45 [facility] Comment on above: Performed By: #### L ACTO SWBC #### [place] [address] Eosinophils/100 WBC (Bld) 1.8 % Normal . [facility] Comment on above: Performed By: #### L ACTO SWBC #### [address] Erythrocyte distribution width (RBC) [Ratio] 15.1 % Normal 11.9-15.3 [facility] Comment on above: Performed By: #### L ACTO SWBC #### [address] Hematocrit (Bld) [Volume fraction] 30.8 % Low 34.0-46.4 [facility] Comment on above: Performed By: #### L ACTO SWBC #### [address] Hemoglobin (Bld) [Mass/Vol] 10.5 g/dL Low 11.8-15.4 [facility] Comment on above: Performed By: #### L ACTO SWBC #### [address] Lymphocytes (Bld) [#/Vol] 1.8 10*3/uL Normal 1.00-4.8 [facility] Comment on above: Performed By: #### L ACTO SWBC #### [address] Lymphocytes/100 WBC (Bld) 26.8 % Normal . [facility] Comment on above: Performed By: #### L ACTO SWBC #### [address] MCH (RBC) [Entitic mass] 30.3 pg Normal 24.7-34.3 [facility] Comment on above: Performed By: #### L ACTO SWBC #### [address] MCV (RBC) [Entitic vol] 89.0 fL Normal 80-100 [facility] Comment on above: Performed By: #### L ACTO SWBC #### [address] Mean Corpuscular HGB Conc 34.0 g/dL Normal 32.0-35.0 [facility] Comment on above: Performed By: #### L ACTO SWBC #### [facility] [address] Monocytes (Bld) [#/Vol] 0.6 10*3/uL Normal 0.0-0.8 [facility] Comment on above: Performed By: #### L ACTO SWBC #### [facility] [address] Monocytes/100 WBC (Bld) 9.5 % Normal . [facility] Comment on above: Performed By: #### L ACTO SWBC #### [address] Neutrophils (Bld) [#/Vol] 4.0 10*3/uL Normal 1.8-7.7 [facility] Comment on above: Performed By: #### L ACTO SWBC #### [facility] [address] [place] [address] Neutrophils/100 WBC (Bld) 61.0 % Normal . [facility] Comment on above: Performed By: #### L ACTO SWBC #### [address] NRBC% 0.1 /100{WBC} Normal 0-0.5 [facility] Comment on above: Performed By: #### L ACTO SWBC #### [facility] [address] Platelet mean volume (Bld) [Entitic vol] 8.3 fL Normal 6.3-10.7 [facility] Comment on above: Performed By: #### L ACTO SWBC #### [facility] [address] [place] [address] [place] Platelets (Bld) [#/Vol] 202 10*3/uL Normal 150-450 [facility] Comment on above: Performed By: #### L ACTO SWBC #### [facility] [address] [place] [address] [place] RBC (Bld) [#/Vol] 3.46 10*6/uL Low 3.60-5.00 [facility] Comment on above: Performed By: #### L ACTO SWBC #### [facility] [address] WBC (Bld) [#/Vol] 6.6 10*3/uL Normal 3.8-11.6 [facility] Comment on above: Performed By: #### L ACTO SWBC #### [address] Basic Metabolic Panelon 09-16 Anion gap [Moles/Vol] 8.4 mmol/L Normal 6.0-15.0 [facility] Comment on above: Performed By: #### C DT #### [address] Calcium [Mass/Vol] 8.3 mg/dL Low 8.6-10.3 [facility] Comment on above: Performed By: #### C DT #### [address] Chloride [Moles/Vol] 107 mmol/L Normal 98-107 [facility] Comment on above: Performed By: #### C DT #### [address] CO2 [Moles/Vol] 30.4 mmol/L Normal 21.0-31.0 [facility] Comment on above: Performed By: #### C DT #### [address] Creatinine [Mass/Vol] 0.61 mg/dL Normal 0.60-1.20 [facility] Comment on above: Performed By: #### C DT #### [address] Creatinine Clr Calc Pharmacy 136.39 Normal [facility] Comment on above: Performed By: #### C DT #### [address] GFR/1.73 sq M.predicted MDRD (S/P/Bld) [Vol rate/Area] mL/min/{1.73_m2} Normal [facility] Comment on above: Performed By: #### C DT #### [facility] [address] Glucose [Mass/Vol] 88 mg/dL Normal 70-100 [facility] Comment on above: Result Comment: [place] Glucose Reference Range is dependent on time and content of last meal. Glucose of more than 200 mg/dL in a nonstressed, ambulatory subject supports the diagnosis of Diabetes Mellitus. ADA recommended reference range Performed By: #### C DT #### [address] Potassium [Moles/Vol] 3.8 mmol/L Normal 3.5-5.1 [facility] Comment on above: Performed By: #### C DT #### [address] Sodium [Moles/Vol] 142 mmol/L Normal 136-145 [facility] Comment on above: Performed By: #### C DT #### [address] Urea nitrogen [Mass/Vol] 5 mg/dL Low 7-25 [facility] Comment on above: Performed By: #### C DT #### [address] Complete Blood Count Auto Di ffon 10-13-2023 Basophils (Bld) [#/Vol] 0.0 10*3/uL Normal 0.0-0.2 [facility] Comment on above: Result Comment: PERF ORMED BY: [place] [address] PATHOLOGIST LATIN DANCER SUMAN NICHOLSON M.D. Performed By: #### C DT #### [place] [address] [place] Basophils/100 WBC (Bld) 0.6 % Normal . [facility] Comment on above: Performed By: #### C DT #### [address] Eosinophils (Bld) [#/Vol] 0.1 10*3/uL Normal 0.0-0.45 [facility] Comment on above: Performed By: #### C DT #### [address] Eosinophils/100 WBC (Bld) 2.4 % Normal . [facility] Comment on above: Performed By: #### C DT #### [address] Erythrocyte distribution width (RBC) [Ratio] 14.6 % Normal 11.9-15.3 [facility] Comment on above: Performed By: #### C DT #### [address] Hematocrit (Bld) [Volume fraction] 33.6 % Low 34.0-46.4 [facility] Comment on above: Performed By: #### C DT #### [address] Hemoglobin (Bld) [Mass/Vol] 11.2 g/dL Low 11.8-15.4 [facility] Comment on above: Performed By: #### C DT #### [address] Lymphocytes (Bld) [#/Vol] 2.0 10*3/uL Normal 1.00-4.8 [facility] Comment on above: Performed By: #### C DT #### [address] Lymphocytes/100 WBC (Bld) 41.1 % Normal . [facility] Comment on above: Performed By: #### C DT #### [address] MCH (RBC) [Entitic mass] 29.8 pg Normal 24.7-34.3 [facility] Comment on above: Performed By: #### C DT #### [address] MCV (RBC) [Entitic vol] 89.0 fL Normal 80-100 [facility] Comment on above: Performed By: #### C DT #### [address] Mean Corpuscular HGB Conc 33.5 g/dL Normal 32.0-35.0 [facility] Comment on above: Performed By: #### C DT #### [address] Monocytes (Bld) [#/Vol] 0.6 10*3/uL Normal 0.0-0.8 [facility] Comment on above: Performed By: #### C DT #### [address] Monocytes/100 WBC (Bld) 12.6 % Normal . [facility] Comment on above: Performed By: #### C DT #### [address] Neutrophils (Bld) [#/Vol] 2.1 10*3/uL Normal 1.8-7.7 [facility] Comment on above: Performed By: #### C DT #### [address] Neutrophils/100 WBC (Bld) 43.3 % Normal . [facility] Comment on above: Performed By: #### C DT #### [address] NRBC% 0.1 /100{WBC} Normal 0-0.5 [facility] Comment on above: Performed By: #### C DT #### [address] Platelet mean volume (Bld) [Entitic vol] 8.4 fL Normal 6.3-10.7 [facility] Comment on above: Performed By: #### C DT #### [address] Platelets (Bld) [#/Vol] 219 10*3/uL Normal 150-450 [facility] Comment on above: Performed By: #### C DT #### [facility] [address] RBC (Bld) [#/Vol] 3.77 10*6/uL Normal 3.60-5.00 [facility] Comment on above: Performed By: #### C DT #### [facility] [address] WBC (Bld) [#/Vol] 4.8 10*3/uL Normal 3.8-11.6 [facility] Comment on above: Performed By: #### C DT #### [facility] [address] Magnesiumon 10-13-2023 Magnesium [Mass/Vol] 2.0 mg/dL Normal 1.9-2.7 [facility] Comment on above: Result Comment: PERF ORMED BY: [place] [address] PATHOLOGIST LATIN DANCER SUMAN NICHOLSON M.D. Performed By: #### C DT #### [address] Basic Metabolic Panelon 09-15 Anion gap [Moles/Vol] 8.2 mmol/L Normal 6.0-15.0 [facility] Comment on above: Performed By: #### G ENIO #### Point of Care testing , Calcium [Mass/Vol] 8.3 mg/dL Low 8.6-10.3 [facility] Comment on above: Performed By: #### G LULS #### Point of Care testing , Chloride [Moles/Vol] 107 mmol/L Normal 98-107 [facility] Comment on above: Performed By: #### G LULS #### Point of Care testing , CO2 [Moles/Vol] 31.9 mmol/L High 21.0-31.0 [facility] Comment on above: Performed By: #### G LULS #### Point of Care testing , Creatinine [Mass/Vol] 0.63 mg/dL Normal 0.60-1.20 [facility] Comment on above: Performed By: #### G LULS #### Point of Care testing , Creatinine Clr Calc Pharmacy 130.46 [facility] Comment on above: Performed By: #### G LULS #### Point of Care testing , GFR/1.73 sq M.predicted MDRD (S/P/Bld) [Vol rate/Area] mL/min/{1.73_m2} [facility] Comment on above: Performed By: #### G LULS #### Point of Care testing , Glucose [Mass/Vol] 94 mg/dL Normal 70-100 [facility] Comment on above: Result Comment: [facility] Glucose Reference Range is dependent on time and content of last meal. Glucose of more than 200 mg/dL in a nonstressed, ambulatory subject supports the diagnosis of Diabetes Mellitus. ADA recommended reference range Performed By: #### G LULS #### Point of Care testing , Potassium [Moles/Vol] 4.1 mmol/L Normal 3.5-5.1 [facility] Comment on above: Performed By: #### G LULS #### Point of Care testing , Sodium [Moles/Vol] 143 mmol/L Normal 136-145 [facility] Comment on above: Performed By: #### G LULS #### Point of Care testing , Urea nitrogen [Mass/Vol] 4 mg/dL Low 7-25 [facility] Comment on above: Performed By: #### G LULS #### Point of Care testing , Clostridium Difficileon 09-15 Clostridium Difficile Positive Normal Negative [facility] Comment on above: Order Comment: > or = to 3 loose/watery stools in the last 24 HRS? Y Is patient on promotility agents or tube feeding? N Result Comment: Resu lts called at 1654 on 10/12/23. Testing performed by RT-PCR PERFORMED BY: [address] [place] [address] PATHOLOGIST LATIN DANCER SUMAN NICHOLSON M.D. Performed By: #### L ACTO SWBC #### [facility] [address] [place] [id number] [facility] Complete Blood Count Auto Di ffon 10-12-2023 Basophils (Bld) [#/Vol] 0.0 10*3/uL Normal 0.0-0.2 [facility] Comment on above: Result Comment: PERF ORMED BY: [address] [place] [address] PATHOLOGIST LATIN DANCER SUMAN NICHOLSON M.D. Performed By: #### G LULS #### Point of Care testing , Basophils/100 WBC (Bld) 0.7 % Normal . [facility] Comment on above: Performed By: #### G LULS #### Point of Care testing , Eosinophils (Bld) [#/Vol] 0.1 10*3/uL Normal 0.0-0.45 [facility] Comment on above: Performed By: #### G LULS #### Point of Care testing , Eosinophils/100 WBC (Bld) 2.7 % Normal . [facility] Comment on above: Performed By: #### G LULS #### Point of Care testing , Erythrocyte distribution width (RBC) [Ratio] 14.4 % Normal 11.9-15.3 [facility] Comment on above: Performed By: #### G LULS #### Point of Care testing , Hematocrit (Bld) [Volume fraction] 31.5 % Low 34.0-46.4 [facility] Comment on above: Performed By: #### G LULS #### Point of Care testing , Hemoglobin (Bld) [Mass/Vol] 10.7 g/dL Low 11.8-15.4 [facility] Comment on above: Performed By: #### G LULS #### Point of Care testing , Lymphocytes (Bld) [#/Vol] 1.7 10*3/uL Normal 1.00-4.8 [facility] Comment on above: Performed By: #### G LULS #### Point of Care testing , Lymphocytes/100 WBC (Bld) 30.9 % Normal . [facility] Comment on above: Performed By: #### G LULS #### Point of Care testing , MCH (RBC) [Entitic mass] 30.4 pg Normal 24.7-34.3 [facility] Comment on above: Performed By: #### Ancelmo STEEN #### Point of Care testing , MCV (RBC) [Entitic vol] 89.5 fL Normal 80-100 [facility] Comment on above: Performed By: #### Ancelmo STEEN #### Point of Care testing , Mean Corpuscular HGB Conc 34.0 g/dL Normal 32.0-35.0 [facility] Comment on above: Performed By: #### Ancelmo STEEN #### Point of Care testing , Monocytes (Bld) [#/Vol] 0.6 10*3/uL Normal 0.0-0.8 [facility] Comment on above: Performed By: #### Ancelmo STEEN #### Point of Care testing , Monocytes/100 WBC (Bld) 11.7 % Normal . [facility] Comment on above: Performed By: #### Ancelmo STEEN #### Point of Care testing , Neutrophils (Bld) [#/Vol] 2.9 10*3/uL Normal 1.8-7.7 [facility] Comment on above: Performed By: #### Ancelmo STEEN #### Point of Care testing , Neutrophils/100 WBC (Bld) 54.0 % Normal . [facility] Comment on above: Performed By: #### Ancelmo STEEN #### Point of Care testing , NRBC% 0.1 /100{WBC} Normal 0-0.5 [facility] Comment on above: Performed By: #### Ancelmo STEEN #### Point of Care testing , Platelet mean volume (Bld) [Entitic vol] 8.6 fL Normal 6.3-10.7 [facility] Comment on above: Performed By: #### Ancelmo STEEN #### Point of Care testing , Platelets (Bld) [#/Vol] 201 10*3/uL Normal 150-450 [facility] Comment on above: Performed By: #### Ancelmo STEEN #### Point of Care testing , RBC (Bld) [#/Vol] 3.53 10*6/uL Low 3.60-5.00 [facility] Comment on above: Performed By: #### G LULS #### Point of Care testing , WBC (Bld) [#/Vol] 5.4 10*3/uL Normal 3.8-11.6 [facility] Comment on above: Performed By: #### G LULS #### Point of Care testing , Gastrointestinal Profile, PC Loi 10-12-2023 Adenovirus F 40/41 Not detected Normal Not Detected [facility] Comment on above: Performed By: #### C DT #### [facility] [address] [place] [address] Astrovirus Not detected Normal Not Detected [facility] Comment on above: Performed By: #### C DT #### [address] C Difficile Toxin A/B Detected Critically abnormal Not Detected [facility] Comment on above: Performed By: #### C DT #### [facility] [address] [place] [address] Campylobacter Not detected Normal Not Detected [facility] Comment on above: Performed By: #### C DT #### [facility] [address] [place] [address] Cryptosporidium Not detected Normal Not Detected [facility] Comment on above: Performed By: #### C DT #### [facility] [address] [place] [address] Cyclospora cayetanensis Not detected Normal Not Detected [facility] Comment on above: Performed By: #### C DT #### [facility] [address] [place] [address] [place] E coli O157 Not applicable Normal Not Detected [facility] Comment on above: Performed By: #### C DT #### [address] Entamoeba histolytica Not detected Normal Not Detected [facility] Comment on above: Performed By: #### C DT #### [facility] [address] [place] [address] [place] Enteroaggregative E coli Not detected Normal Not Detected [facility] Comment on above: Performed By: #### C DT #### [facility] [address] [place] [address] Enteropathogenic E coli Not detected Normal Not Detected [facility] Comment on above: Performed By: #### C DT #### [place] [address] [place] Enterotoxigenic E coli Not detected Normal Not Detected [facility] Comment on above: Performed By: #### C DT #### [address] Giardia lamblia Not detected Normal Not Detected [facility] Comment on above: Performed By: #### C DT #### [address] Norovirus GI/GII Not detected Normal Not Detected [facility] Comment on above: Performed By: #### C DT #### [facility] [address] [place] [address] [place] Plesiomonas shigelloides Not detected Normal Not Detected [facility] Comment on above: Performed By: #### C DT #### [facility] [address] [place] [address] [place] Rotavirus A Not detected Normal Not Detected [facility] Comment on above: Performed By: #### C DT #### [facility] [address] [place] [address] [place] Salmonella Not detected Normal Not Detected [facility] Comment on above: Performed By: #### C DT #### [facility] [address] [place] [address] [place] Sapovirus Not detected Normal Not Detected [facility] Comment on above: Result Comment: Perf ormed at: - [facility] [id number] Systems Administrator: Joselin Solis MD, Phone: [phone] PERFORMED BY: [place] [address] PATHOLOGIST LATIN DANCER SUMAN NICHOLSON M.D. Performed By: #### C DT #### [address] Gnlms-thftc-hijljjnji E coli Not detected Normal Not Detected [facility] Comment on above: Performed By: #### C DT #### [address] Shigella/Enteroinvasi ve E coli Not detected Normal Not Detected [facility] Comment on above: Performed By: #### C DT #### [address] Vibrio Not detected Normal Not Detected [facility] Comment on above: Performed By: #### C DT #### [address] Vibrio cholerae Not detected Normal Not Detected [facility] Comment on above: Performed By: #### C DT #### [address] Yersinia enterocolitica Not detected Normal Not Detected [facility] Comment on above: Performed By: #### C DT #### [address] Magnesiumon 10-12-2023 Magnesium [Mass/Vol] 1.7 mg/dL Low 1.9-2.7 [facility] Comment on above: Result Comment: PERF ORMED BY: [place] [address] PATHOLOGIST LATIN DANCER SUMAN NICHOLSON M.D. Performed By: #### L ACTO SWBC #### [address] #### CALPROTECT #### [facility] , OVA AND PARASITEon OVA AND PARASITE Final report These results were obtained using wet preparation(s) and trichrome stained smear. This test does not include testing for Cryptosporidium parvum, Cyclospora, or Microsporidia. No ova, cysts, or parasites seen. One negative specimen does not rule out the possibility of a parasitic infection. Performed at: [address] [id number] Systems Administrator: Scott Harrell PhD, Phone: [phone] PERFORMED BY: [place] [address] PATHOLOGIST LATIN DANCER SUMAN NICHOLSON M.D. [facility] Comment on above: Performed By: #### L CAMRON GANNON #### [address] Stool Cultureon 10-12-2023 Stool culture Negative for Shiga T oxin 1 Negative for Shiga Toxin 2 -- A negative Shiga Toxin result may occur if the antigen level in the specimen is below the detection limit of the assay. Stool culture results No Salmonella, Shigella, Campy or E. coli 0157:H7 Isolated PERFORMED BY: [place] [address] PATHOLOGIST LATIN DANCER SUMAN NICHOLSON M.D. [facility] Comment on above: Performed By: #### G LULS #### Point of Care testing , Urinalysison 10-12-2023 Appearance (U) Clear Normal Clear [facility] Comment on above: Order Comment: Name Collection Type:: Clean-Voided Midstream Performed By: #### G LULS #### Point of Care testing , Bilirubin,Urine Negative Normal Negative [facility] Comment on above: Order Comment: Name Collection Type:: Clean-Voided Midstream Performed By: #### G LULS #### Point of Care testing , Color (U) Yellow Normal Yellow [facility] Comment on above: Order Comment: Name Collection Type:: Clean-Voided Midstream Performed By: #### G LULS #### Point of Care testing , Glucose Ql (U) Normal Normal Normal [facility] Comment on above: Order Comment: Name Collection Type:: Clean-Voided Midstream Performed By: #### G LULS #### Point of Care testing , Ketones Ql (U) Negative Normal Negative [facility] Comment on above: Order Comment: Name Collection Type:: Clean-Voided Midstream Performed By: #### G LULS #### Point of Care testing , Leukocyte esterase Test strip Ql (U) Negative Normal Negative [facility] Comment on above: Order Comment: Name Collection Type:: Clean-Voided Midstream Performed By: #### G LULS #### Point of Care testing , Nitrite,Urine Negative Normal Negative [facility] Comment on above: Order Comment: Name Collection Type:: Clean-Voided Midstream Performed By: #### G LULS #### Point of Care testing , Occult Blood,Urine Negative Normal Negative [facility] Comment on above: Order Comment: Name Collection Type:: Clean-Voided Midstream Result Comment: PERF ORMED BY: [facility] [address] [place] [address] PATHOLOGIST LATIN DANCER SUMAN NICHOLSON M.D. Performed By: #### G LULS #### Point of Care testing , pH (U) 7.0 [pH] Normal 5.0-9.0 [facility] Comment on above: Order Comment: Name Collection Type:: Clean-Voided Midstream Performed By: #### G LULS #### Point of Care testing , Protein,Urine Negative Normal Negative [facility] Comment on above: Order Comment: Name Collection Type:: Clean-Voided Midstream Performed By: #### G LULS #### Point of Care testing , Specificy [place],Urine 1.009 Normal 1.001-1.03 0 [facility] Comment on above: Order Comment: Name Collection Type:: Clean-Voided Midstream Performed By: #### G LULS #### Point of Care testing , Urobilinogen,Urine Normal Normal Normal [facility] Comment on above: Order Comment: Name Collection Type:: Clean-Voided Midstream Performed By: #### G LULS #### Point of Care testing , Basic Metabolic Panelon 09-15 Anion gap [Moles/Vol] 8.1 mmol/L Normal 6.0-15.0 [facility] Comment on above: Performed By: #### L ACTO SWBC #### [facility] [address] [place] [address] #### CALPROTECT #### [facility] , Calcium [Mass/Vol] 8.3 mg/dL Low 8.6-10.3 [facility] Comment on above: Performed By: #### L ACTO SWBC #### [facility] [address] [place] [address] [place] #### CALPROTECT #### [facility] , Chloride [Moles/Vol] 109 mmol/L High 98-107 [facility] Comment on above: Performed By: #### L ACTO SWBC #### [facility] [address] [place] [address] #### CALPROTECT #### [facility] , CO2 [Moles/Vol] 27.9 mmol/L Normal 21.0-31.0 [facility] Comment on above: Performed By: #### L ACTO SWBC #### [facility] [address] [place] [address] #### CALPROTECT #### [facility] , Creatinine [Mass/Vol] 0.56 mg/dL Low 0.60-1.20 [facility] Comment on above: Performed By: #### L ACTO SWBC #### [facility] [address] [place] [address] [place] #### CALPROTECT #### [facility] , Creatinine Clr Calc Pharmacy 146.77 [facility] Comment on above: Performed By: #### L ACTO SWBC #### [facility] [address] [place] [address] [place] #### CALPROTECT #### [facility] , GFR/1.73 sq M.predicted MDRD (S/P/Bld) [Vol rate/Area] mL/min/{1.73_m2} [facility] Comment on above: Performed By: #### L ACTO SWBC #### [facility] [address] [place] [address] #### CALPROTECT #### [facility] , Glucose [Mass/Vol] 117 mg/dL High 70-100 [facility] Comment on above: Result Comment: [place] Glucose Reference Range is dependent on time and content of last meal. Glucose of more than 200 mg/dL in a nonstressed, ambulatory subject supports the diagnosis of Diabetes Mellitus. ADA recommended reference range Performed By: #### L ACTO SWBC #### [facility] [address] [place] [address] #### CALPROTECT #### [facility] , Potassium [Moles/Vol] 4.0 mmol/L Normal 3.5-5.1 [facility] Comment on above: Performed By: #### L ACTO SWBC #### [facility] [address] [place] [address] [place] #### CALPROTECT #### [facility] , Sodium [Moles/Vol] 141 mmol/L Normal 136-145 [facility] Comment on above: Performed By: #### L ACTO SWBC #### [facility] [address] [place] [address] #### CALPROTECT #### [facility] , Urea nitrogen [Mass/Vol] 5 mg/dL Low 7-25 [facility] Comment on above: Performed By: #### L ACTO SWBC #### [facility] [address] [place] [address] [place] #### CALPROTECT #### [facility] , Complete Blood Count Auto Di ffon 10-11-2023 Basophils (Bld) [#/Vol] 0.0 10*3/uL Normal 0.0-0.2 [facility] Comment on above: Result Comment: PERF ORMED BY: [place] [address] PATHOLOGIST LATIN DANCER SUMAN NICHOLSON M.D. Performed By: #### L ACTO SWBC #### [facility] [address] [place] [address] #### CALPROTECT #### [facility] , Basophils/100 WBC (Bld) 0.8 % Normal . [facility] Comment on above: Performed By: #### L ACTO SWBC #### [facility] [address] [place] [address] [place] #### CALPROTECT #### [facility] , Eosinophils (Bld) [#/Vol] 0.1 10*3/uL Normal 0.0-0.45 [facility] Comment on above: Performed By: #### L ACTO SWBC #### [address] #### CALPROTECT #### [facility] , Eosinophils/100 WBC (Bld) 3.2 % Normal . [facility] Comment on above: Performed By: #### L ACTO SWBC #### [facility] [address] [place] [address] #### CALPROTECT #### [facility] , Erythrocyte distribution width (RBC) [Ratio] 14.7 % Normal 11.9-15.3 [facility] Comment on above: Performed By: #### L ACTO SWBC #### [facility] [address] [place] [address] [place] #### CALPROTECT #### [facility] , Hematocrit (Bld) [Volume fraction] 31.0 % Low 34.0-46.4 [facility] Comment on above: Performed By: #### L ACTO SWBC #### [facility] [address] [place] [address] [place] #### CALPROTECT #### [facility] , Hemoglobin (Bld) [Mass/Vol] 10.4 g/dL Low 11.8-15.4 [facility] Comment on above: Performed By: #### L ACTO SWBC #### [facility] [address] [place] [address] #### CALPROTECT #### [facility] , Lymphocytes (Bld) [#/Vol] 1.7 10*3/uL Normal 1.00-4.8 [facility] Comment on above: Performed By: #### L ACTO SWBC #### [facility] [address] [place] [address] #### CALPROTECT #### [facility] , Lymphocytes/100 WBC (Bld) 37.3 % Normal . [facility] Comment on above: Performed By: #### L ACTO SWBC #### [facility] [address] [place] [address] #### CALPROTECT #### [facility] , MCH (RBC) [Entitic mass] 30.2 pg Normal 24.7-34.3 [facility] Comment on above: Performed By: #### L ACTO SWBC #### [facility] [address] [place] [address] #### CALPROTECT #### [facility] , MCV (RBC) [Entitic vol] 90.3 fL Normal 80-100 [facility] Comment on above: Performed By: #### L ACTO SWBC #### [facility] [address] [place] [address] #### CALPROTECT #### [facility] , Mean Corpuscular HGB Conc 33.5 g/dL Normal 32.0-35.0 [facility] Comment on above: Performed By: #### L ACTO SWBC #### [facility] [address] [place] [address] #### CALPROTECT #### [facility] , Monocytes (Bld) [#/Vol] 0.6 10*3/uL Normal 0.0-0.8 [facility] Comment on above: Performed By: #### L ACTO SWBC #### [facility] [address] [place] [address] #### CALPROTECT #### [facility] , Monocytes/100 WBC (Bld) 12.4 % Normal . [facility] Comment on above: Performed By: #### L ACTO SWBC #### [facility] [address] [place] [address] [place] #### CALPROTECT #### [facility] , Neutrophils (Bld) [#/Vol] 2.1 10*3/uL Normal 1.8-7.7 [facility] Comment on above: Performed By: #### L ACTO SWBC #### [facility] [address] [place] [address] #### CALPROTECT #### [facility] , Neutrophils/100 WBC (Bld) 46.3 % Normal . [facility] Comment on above: Performed By: #### L ACTO SWBC #### [facility] [address] [place] [address] #### CALPROTECT #### [facility] , NRBC% 0.0 /100{WBC} Normal 0-0.5 [facility] Comment on above: Performed By: #### L ACTO SWBC #### [facility] [address] [place] [address] [place] #### CALPROTECT #### [facility] , Platelet mean volume (Bld) [Entitic vol] 8.5 fL Normal 6.3-10.7 [facility] Comment on above: Performed By: #### L ACTO SWBC #### [facility] [address] [place] [address] [place] #### CALPROTECT #### [facility] , Platelets (Bld) [#/Vol] 193 10*3/uL Normal 150-450 [facility] Comment on above: Performed By: #### L ACTO SWBC #### [facility] [address] [place] [address] #### CALPROTECT #### [facility] , RBC (Bld) [#/Vol] 3.43 10*6/uL Low 3.60-5.00 [facility] Comment on above: Performed By: #### L ACTO SWBC #### [facility] [address] [place] [address] #### CALPROTECT #### [facility] , WBC (Bld) [#/Vol] 4.5 10*3/uL Normal 3.8-11.6 [facility] Comment on above: Performed By: #### L ACTO SWBC #### [facility] [address] [place] [address] #### CALPROTECT #### [facility] , Magnesiumon 10-11-2023 Magnesium [Mass/Vol] 1.7 mg/dL Low 1.9-2.7 [facility] Comment on above: Result Comment: PERF ORMED BY: [place] [address] PATHOLOGIST LATIN DANCER SUMAN NICHOLSON M.D. Performed By: #### L ACTO SWBC #### [facility] [address] [place] [address] #### CALPROTECT #### [facility] , Basic Metabolic Panelon 09-15 Anion gap [Moles/Vol] 8.2 mmol/L Normal 6.0-15.0 [facility] Comment on above: Performed By: #### L ACTO SWBC #### [facility] [address] [place] [address] [place] #### CALPROTECT #### [facility] , Calcium [Mass/Vol] 8.5 mg/dL Low 8.6-10.3 [facility] Comment on above: Performed By: #### L ACTO SWBC #### [facility] [address] [place] [address] #### CALPROTECT #### [facility] , Chloride [Moles/Vol] 108 mmol/L High 98-107 [facility] Comment on above: Performed By: #### L ACTO SWBC #### [facility] [address] [place] [address] [place] #### CALPROTECT #### [facility] , CO2 [Moles/Vol] 27.9 mmol/L Normal 21.0-31.0 [facility] Comment on above: Performed By: #### L ACTO SWBC #### [facility] [address] [place] [address] #### CALPROTECT #### [facility] , Creatinine [Mass/Vol] 0.53 mg/dL Low 0.60-1.20 [facility] Comment on above: Performed By: #### L ACTO SWBC #### [facility] [address] [place] [address] #### CALPROTECT #### [facility] , Creatinine Clr Calc Pharmacy 155.08 [facility] Comment on above: Performed By: #### L ACTO SWBC #### [facility] [address] [place] [address] [place] #### CALPROTECT #### [facility] , GFR/1.73 sq M.predicted MDRD (S/P/Bld) [Vol rate/Area] mL/min/{1.73_m2} [facility] Comment on above: Performed By: #### L ACTO SWBC #### [facility] [address] [place] [address] [place] #### CALPROTECT #### [facility] , Glucose [Mass/Vol] 85 mg/dL Normal 70-100 [facility] Comment on above: Result Comment: [facility] Glucose Reference Range is dependent on time and content of last meal. Glucose of more than 200 mg/dL in a nonstressed, ambulatory subject supports the diagnosis of Diabetes Mellitus. ADA recommended reference range Performed By: #### L ACTO SWBC #### [facility] [address] [place] [address] #### CALPROTECT #### [facility] , Potassium [Moles/Vol] 4.1 mmol/L Normal 3.5-5.1 [facility] Comment on above: Performed By: #### L ACTO SWBC #### [facility] [address] [place] [address] #### CALPROTECT #### [facility] , Sodium [Moles/Vol] 140 mmol/L Normal 136-145 [facility] Comment on above: Performed By: #### L ACTO SWBC #### [facility] [address] [place] [address] #### CALPROTECT #### [facility] , Urea nitrogen [Mass/Vol] 6 mg/dL Low 7-25 [facility] Comment on above: Performed By: #### L ACTO SWBC #### [facility] [address] [place] [address] #### CALPROTECT #### [facility] , Complete Blood Count Auto Di ffon 10-10-2023 Basophils (Bld) [#/Vol] 0.1 10*3/uL Normal 0.0-0.2 [facility] Comment on above: Result Comment: PERF ORMED BY: [place] [address] PATHOLOGIST LATIN DANCER SUMAN NICHOLSON M.D. Performed By: #### L ACTO SWBC #### [facility] [address] [place] [address] #### CALPROTECT #### [facility] , Basophils/100 WBC (Bld) 1.3 % Normal . [facility] Comment on above: Performed By: #### L ACTO SWBC #### [facility] [address] [place] [address] [place] #### CALPROTECT #### [facility] , Eosinophils (Bld) [#/Vol] 0.1 10*3/uL Normal 0.0-0.45 [facility] Comment on above: Performed By: #### L ACTO SWBC #### [facility] [address] [place] [address] [place] #### CALPROTECT #### [facility] , Eosinophils/100 WBC (Bld) 3.2 % Normal . [facility] Comment on above: Performed By: #### L ACTO SWBC #### [address] #### CALPROTECT #### [facility] , Erythrocyte distribution width (RBC) [Ratio] 14.9 % Normal 11.9-15.3 [facility] Comment on above: Performed By: #### L ACTO SWBC #### [facility] [address] [place] [address] [place] #### CALPROTECT #### [facility] , Hematocrit (Bld) [Volume fraction] 33.0 % Low 34.0-46.4 [facility] Comment on above: Performed By: #### L ACTO SWBC #### [facility] [address] [place] [address] [place] #### CALPROTECT #### [facility] , Hemoglobin (Bld) [Mass/Vol] 10.9 g/dL Low 11.8-15.4 [facility] Comment on above: Performed By: #### L ACTO SWBC #### [facility] [address] [place] [address] [place] #### CALPROTECT #### [facility] , Lymphocytes (Bld) [#/Vol] 1.6 10*3/uL Normal 1.00-4.8 [facility] Comment on above: Performed By: #### L ACTO SWBC #### [facility] [address] [place] [address] #### CALPROTECT #### [facility] , Lymphocytes/100 WBC (Bld) 37.3 % Normal . [facility] Comment on above: Performed By: #### L ACTO SWBC #### [facility] [address] [place] [address] #### CALPROTECT #### [facility] , MCH (RBC) [Entitic mass] 29.8 pg Normal 24.7-34.3 [facility] Comment on above: Performed By: #### L ACTO SWBC #### [facility] [address] [place] [address] #### CALPROTECT #### [facility] , MCV (RBC) [Entitic vol] 90.0 fL Normal 80-100 [facility] Comment on above: Performed By: #### L ACTO SWBC #### [facility] [address] [place] [address] #### CALPROTECT #### [facility] , Mean Corpuscular HGB Conc 33.1 g/dL Normal 32.0-35.0 [facility] Comment on above: Performed By: #### L ACTO SWBC #### [facility] [address] [place] [address] #### CALPROTECT #### [facility] , Monocytes (Bld) [#/Vol] 0.4 10*3/uL Normal 0.0-0.8 [facility] Comment on above: Performed By: #### L ACTO SWBC #### [facility] [address] [place] [address] [place] #### CALPROTECT #### [facility] , Monocytes/100 WBC (Bld) 8.9 % Normal . [facility] Comment on above: Performed By: #### L ACTO SWBC #### [facility] [address] [place] [address] [place] #### CALPROTECT #### [facility] , Neutrophils (Bld) [#/Vol] 2.1 10*3/uL Normal 1.8-7.7 [facility] Comment on above: Performed By: #### L ACTO SWBC #### [facility] [address] [place] [address] [place] #### CALPROTECT #### [facility] , Neutrophils/100 WBC (Bld) 49.3 % Normal . [facility] Comment on above: Performed By: #### L ACTO SWBC #### [facility] [address] [place] [address] #### CALPROTECT #### [facility] , NRBC% 0.2 /100{WBC} Normal 0-0.5 [facility] Comment on above: Performed By: #### L ACTO SWBC #### [facility] [address] [place] [address] [place] #### CALPROTECT #### [facility] , Platelet mean volume (Bld) [Entitic vol] 8.4 fL Normal 6.3-10.7 [facility] Comment on above: Performed By: #### L ACTO SWBC #### [facility] [address] [place] [address] [place] #### CALPROTECT #### [facility] , Platelets (Bld) [#/Vol] 199 10*3/uL Normal 150-450 [facility] Comment on above: Performed By: #### L ACTO SWBC #### [facility] [address] [place] [address] [place] #### CALPROTECT #### [facility] , RBC (Bld) [#/Vol] 3.67 10*6/uL Normal 3.60-5.00 [facility] Comment on above: Performed By: #### L ACTO SWBC #### [facility] [address] [place] [address] #### CALPROTECT #### [facility] , WBC (Bld) [#/Vol] 4.3 10*3/uL Normal 3.8-11.6 [facility] Comment on above: Performed By: #### L ACTO SWBC #### [facility] [address] [place] [address] #### CALPROTECT #### [facility] , Magnesiumon 10-10-2023 Magnesium [Mass/Vol] 1.8 mg/dL Low 1.9-2.7 [facility] Comment on above: Result Comment: PERF ORMED BY: [place] [address] PATHOLOGIST LATIN DANCER SUMAN NICHOLSON M.D. Performed By: #### L ACTO SWBC #### [facility] [address] [place] [address] #### CALPROTECT #### [facility] , Basic Metabolic Panelon 09-15 Anion gap [Moles/Vol] 6.5 mmol/L Normal 6.0-15.0 [facility] Comment on above: Performed By: #### L ACTO SWBC #### [facility] [address] [place] [address] #### CALPROTECT #### [facility] , Calcium [Mass/Vol] 8.2 mg/dL Low 8.6-10.3 [facility] Comment on above: Performed By: #### L ACTO SWBC #### [facility] [address] [place] [address] [place] #### CALPROTECT #### [facility] , Chloride [Moles/Vol] 111 mmol/L High 98-107 [facility] Comment on above: Performed By: #### L ACTO SWBC #### [facility] [address] [place] [address] [place] #### CALPROTECT #### [facility] , CO2 [Moles/Vol] 24.5 mmol/L Normal 21.0-31.0 [facility] Comment on above: Performed By: #### L ACTO SWBC #### [facility] [address] [place] [address] [place] #### CALPROTECT #### [facility] , Creatinine [Mass/Vol] 0.50 mg/dL Low 0.60-1.20 [facility] Comment on above: Performed By: #### L ACTO SWBC #### [facility] [address] [place] [address] #### CALPROTECT #### [facility] , Creatinine Clr Calc Pharmacy 163.41 [facility] Comment on above: Performed By: #### L ACTO SWBC #### [facility] [address] [place] [address] [place] #### CALPROTECT #### [facility] , GFR/1.73 sq M.predicted MDRD (S/P/Bld) [Vol rate/Area] mL/min/{1.73_m2} [facility] Comment on above: Performed By: #### L ACTO SWBC #### [facility] [address] [place] [address] [place] #### CALPROTECT #### [facility] , Glucose [Mass/Vol] 104 mg/dL High 70-100 [facility] Comment on above: Result Comment: [facility] Glucose Reference Range is dependent on time and content of last meal. Glucose of more than 200 mg/dL in a nonstressed, ambulatory subject supports the diagnosis of Diabetes Mellitus. ADA recommended reference range Performed By: #### L ACTO SWBC #### [facility] [address] [place] [address] #### CALPROTECT #### [facility] , Potassium [Moles/Vol] 4.0 mmol/L Normal 3.5-5.1 [facility] Comment on above: Performed By: #### L ACTO SWBC #### [facility] [address] [place] [address] #### CALPROTECT #### [facility] , Sodium [Moles/Vol] 138 mmol/L Normal 136-145 [facility] Comment on above: Performed By: #### L ACTO SWBC #### [facility] [address] [place] [address] #### CALPROTECT #### [facility] , Urea nitrogen [Mass/Vol] 7 mg/dL Normal 7-25 [facility] Comment on above: Performed By: #### L ACTO SWBC #### [facility] [address] [place] [address] #### CALPROTECT #### [facility] , Complete Blood Count Auto Di ffon 10-09-2023 Basophils (Bld) [#/Vol] 0.0 10*3/uL Normal 0.0-0.2 [facility] Comment on above: Result Comment: PERF ORMED BY: [place] [address] PATHOLOGIST LATIN DANCER SUMAN NICHOLSON M.D. Performed By: #### L ACTO SWBC #### [facility] [address] [place] [address] #### CALPROTECT #### [facility] , Basophils/100 WBC (Bld) 1.4 % Normal . [facility] Comment on above: Performed By: #### L ACTO SWBC #### [facility] [address] [place] [address] #### CALPROTECT #### [facility] , Eosinophils (Bld) [#/Vol] 0.0 10*3/uL Normal 0.0-0.45 [facility] Comment on above: Performed By: #### L ACTO SWBC #### [facility] [address] [place] [address] #### CALPROTECT #### [facility] , Eosinophils/100 WBC (Bld) 1.1 % Normal . [facility] Comment on above: Performed By: #### L ACTO SWBC #### [facility] [address] [place] [address] #### CALPROTECT #### [facility] , Erythrocyte distribution width (RBC) [Ratio] 14.6 % Normal 11.9-15.3 [facility] Comment on above: Performed By: #### L ACTO SWBC #### [facility] [address] [place] [address] #### CALPROTECT #### [facility] , Hematocrit (Bld) [Volume fraction] 32.2 % Low 34.0-46.4 [facility] Comment on above: Performed By: #### L ACTO SWBC #### [facility] [address] [place] [address] #### CALPROTECT #### [facility] , Hemoglobin (Bld) [Mass/Vol] 11.1 g/dL Low 11.8-15.4 [facility] Comment on above: Performed By: #### L ACTO SWBC #### [facility] [address] [place] [address] [place] #### CALPROTECT #### [facility] , Lymphocytes (Bld) [#/Vol] 0.6 10*3/uL Low 1.00-4.8 [facility] Comment on above: Performed By: #### L ACTO SWBC #### [facility] [address] [place] [address] [place] #### CALPROTECT #### [facility] , Lymphocytes/100 WBC (Bld) 27.4 % Normal . [facility] Comment on above: Performed By: #### L ACTO SWBC #### [facility] [address] [place] [address] [place] #### CALPROTECT #### [facility] , MCH (RBC) [Entitic mass] 30.6 pg Normal 24.7-34.3 [facility] Comment on above: Performed By: #### L ACTO SWBC #### [facility] [address] [place] [address] #### CALPROTECT #### [facility] , MCV (RBC) [Entitic vol] 88.9 fL Normal 80-100 [facility] Comment on above: Performed By: #### L ACTO SWBC #### [facility] [address] [place] [address] #### CALPROTECT #### [facility] , Mean Corpuscular HGB Conc 34.4 g/dL Normal 32.0-35.0 [facility] Comment on above: Performed By: #### L ACTO SWBC #### [facility] [address] [place] [address] #### CALPROTECT #### [facility] , Monocytes (Bld) [#/Vol] 0.2 10*3/uL Normal 0.0-0.8 [facility] Comment on above: Performed By: #### L ACTO SWBC #### [facility] [address] [place] [address] [place] #### CALPROTECT #### [facility] , Monocytes/100 WBC (Bld) 10.1 % Normal . [facility] Comment on above: Performed By: #### L ACTO SWBC #### [facility] [address] [place] [address] #### CALPROTECT #### [facility] , Neutrophils (Bld) [#/Vol] 1.3 10*3/uL Low 1.8-7.7 [facility] Comment on above: Performed By: #### L ACTO SWBC #### [facility] [address] [place] [address] [place] #### CALPROTECT #### [facility] , Neutrophils/100 WBC (Bld) 60.0 % Normal . [facility] Comment on above: Performed By: #### L ACTO SWBC #### [facility] [address] [place] [address] [place] #### CALPROTECT #### [facility] , NRBC% 0.2 /100{WBC} Normal 0-0.5 [facility] Comment on above: Performed By: #### L ACTO SWBC #### [facility] [address] [place] [address] [place] #### CALPROTECT #### [facility] , Platelet mean volume (Bld) [Entitic vol] 7.9 fL Normal 6.3-10.7 [facility] Comment on above: Performed By: #### L ACTO SWBC #### [facility] [address] [place] [address] [place] #### CALPROTECT #### [facility] , Platelets (Bld) [#/Vol] 236 10*3/uL Normal 150-450 [facility] Comment on above: Performed By: #### L ACTO SWBC #### [facility] [address] [place] [address] [place] #### CALPROTECT #### [facility] , RBC (Bld) [#/Vol] 3.62 10*6/uL Normal 3.60-5.00 [facility] Comment on above: Performed By: #### L ACTO SWBC #### [facility] [address] [place] [address] [place] #### CALPROTECT #### [facility] , WBC (Bld) [#/Vol] 2.2 10*3/uL Low 3.8-11.6 [facility] Comment on above: Performed By: #### L ACTO SWBC #### [facility] [address] #### CALPROTECT #### [facility] , Christian 10-09-2023 L Specimen: [id number] Received: 10/09/23 Status: SOUT Req Num: [id number] Spec Type: Surgical Subm Dr: Carolyn Vang MD Tissues: A GASTRIC FOR HP (GASTRIC NODULE) B Small Intestine - Biopsy/Polyp (SMALL BOWEL BX) Procedures: HE/4, Gross/Micro L4/2, H PYLORI, RECUT/4 Age/ Patient Sex Location Account Attending Physician Melina Díaz 48/F 3T [id number] David Bejarano MD SPEC NUM: [id number] RECD: 10/09/23 STATUS: [facility] REQ NUM: [id number] DIANELYS: 10/09/23 DR: Carolyn Vang MD ENTERED: 10/09/[address] [facility] DR: SPEC TYPE: Surgical DEPT: S ORDERED: HE/4, Gross/Micro L4/2, H PYLORI, RECUT/4 ORDERED: HE/4, Gross/Micro L4/2, H PYLORI, RECUT/4 Pathological Diagnosis A. Stomach, gastric nodule, biopsy: - Focal ulceration with hemorrhage, vascular congestion, and reactive cytologic atypia. - Mild, nonspecific chronic gastritis - Negative for H. pylori on H. pylori immunostains with appropriate controls. - Negative for dysplasia and negative for malignancy B. Small bowel, biopsy: - Small focus of active enteritis. - Negative for dysplasia and negative for malignancy. Clinical Information Vomiting/blood in stool Gross Description A. Received in formalin labeled with the patient's name, date of and gastric nodule biopsy is one rodriguez tissue 0.5 x 0.1 cm. Entirely submitted in one cassette labeled A1. B. Received in formalin labeled with the patient's name, date of and small bowel biopsy are two rodriguez tissues 0.3 and 0.4 cm in greatest dimensions. Entirely submitted in one cassette labeled B1. Specimen: [id number] Received: 10/09/23 Status: FUNMILAYO Rosas Num: [id number] Spec Type: Surgical Subm Dr: Carolyn Vang MD Tissues: A GASTRIC FOR HP (GASTRIC NODULE) B Small Intestine - Biopsy/Polyp (SMALL BOWEL BX) Procedures: HE/4, Gross/Micro L4/2, H PYLORI, RECUT/4 Patient: Melina Díaz [id number] (Continued) Specimen: [id number] Received: 10/09/23 (Continued) Signed (signature on file) Mary Kate Rodriguez MD 10/19/23 1112 Specimen: [id number] Received: 10/09/23 Status: FUNMILAYO Rosas Num: [id number] Spec Type: Surgical Subm Dr: Carolyn Vang MD Tissues: A GASTRIC FOR HP (GASTRIC NODULE) B Small Intestine - Biopsy/Polyp (SMALL BOWEL BX) Procedures: HE/4, Gross/Micro L4/2, H PYLORI, RECUT/4 Patient: Melina Díaz [id number] (Continued) Specimen: [id number] Received: 10/09/23 (Continued) CPT Codes 36691s2, 52157 Specimen: [id number] Received: 10/09/23 Status: FUNMILAYO Rosas Num: [id number] Spec Type: Surgical Subm Dr: Carolyn Vang MD Tissues: A GASTRIC FOR HP (GASTRIC NODULE) B Small Intestine - Biopsy/Polyp (SMALL BOWEL BX) Procedures: HE/4, Gross/Micro L4/2, H PYLORI, RECUT/4 Patient: Melina Díaz [id number] (Continued) Signed (signature on file) Mary Kate Rodriguez MD 10/19/23 1112 Normal [facility] Magnesiumon 10-09-2023 Magnesium [Mass/Vol] 1.8 mg/dL Low 1.9-2.7 [facility] Comment on above: Result Comment: PERF ORMED BY: [facility] [address] [place] [id number] PATHOLOGIST LATIN DANCER SUMAN NICHOLSON M.D. Performed By: #### L ACTO SWBC #### [facility] [address] #### CALPROTECT #### [facility] , Blood Cultureon 10-08-2023 Bacteria identified Cx Nom (Bld) Blood Culture Results No Growth 5 Days PERFORMED BY: [place] [address] PATHOLOGIST LATIN DANCER SUMAN NICHOLSON M.D. [facility] Comment on above: Performed By: #### C BC #### [address] Bacteria identified Cx Nom (Bld) NO GROWTH 5 DAYS PERFORMED BY: [place] [address] PATHOLOGIST LATIN DANCER SUMAN NICHOLSON M.D. [facility] Comment on above: Performed By: #### C BC #### [address] abdomen pelvis w conon CT abdomen pelvis w [facility] [place] [address] [place] [address] CT Scan Report Signed Patient: Melina Díaz MR#: [id number] : 1975 Acct:[id number] Age/Sex: 48 / F ADM Date: 10/08/23 Loc: ER Room: Type: [facility] ER Attending Dr: Copies to: Amber Johnston APRN Ordering Provider: Amber Johnston APRN Date of Service: 10/08/23 CT/CT abdomen pelvis w con: nausea, vomiting, diarrhea CT ABDOMEN AND PELVIS WITH INTRAVENOUS CONTRAST: CLINICAL HISTORY: Nausea vomiting diarrhea COMPARISON: CT abdomen and pelvis 06/03/2023 TECHNIQUE: Spiral images were obtained through the abdomen and pelvis following the administration of intravenous contrast. This CT exam was performed using one or more following dose reduction techniques: Automated exposure control, adjustment of the mA and/or kV according to patient size, or use of iterative reconstruction technique. FINDINGS: Lung Bases: [No acute findings.] Organs:Gallbladder has been removed with associated prominence of the biliary system. No enhancing liver lesion. Small cyst involving the spleen. Pancreas adrenal glands and kidneys appear unremarkable. Abdominal aorta appears normal in caliber.[ GI: Gastric bypass changes. Small bowel appears nondilated. No acute colonic abnormality.[ Pelvis:[Urinary bladder is grossly unremarkable. Uterus has been removed. No adnexal mass.] Peritoneum/Retroperitoneum :No free air, free fluid or lymphadenopathy.[ Abd wall/Bones:Abdominal wall demonstrates no acute findings. Osseous structures demonstrate degenerative change.[ CT/CT abdomen pelvis w con IMPRESSION: No acute findings. Impression dictated by: Masoud Molina Jr., DZarinaOZarina10/08/2023 2:58 PM Dictation Location: [place] [address] Transcribed By: [facility] 10/08/23 1458 Dictated By: Masoud Molina Jr, DO 10/08/23 1455 Signed By: 10/08/23 1458 Normal [facility] Complete Blood Count Auto Di ffon 10-08-2023 Basophils (Bld) [#/Vol] 0.1 10*3/uL Normal 0.0-0.2 [facility] Comment on above: Result Comment: PERF ORMED BY: [place] [address] PATHOLOGIST LATIN DANCER SUMAN NICHOLSON M.D. Performed By: #### C BC #### [address] Basophils/100 WBC (Bld) 1.0 % Normal . [facility] Comment on above: Performed By: #### C BC #### [place] [address] [place] Eosinophils (Bld) [#/Vol] 0.1 10*3/uL Normal 0.0-0.45 [facility] Comment on above: Performed By: #### C BC #### [place] [address] [place] Eosinophils/100 WBC (Bld) 1.7 % Normal . [facility] Comment on above: Performed By: #### C BC #### [address] Erythrocyte distribution width (RBC) [Ratio] 14.3 % Normal 11.9-15.3 [facility] Comment on above: Performed By: #### C BC #### [facility] [address] Hematocrit (Bld) [Volume fraction] 37.2 % Normal 34.0-46.4 [facility] Comment on above: Performed By: #### C BC #### [facility] [address] Hemoglobin (Bld) [Mass/Vol] 12.5 g/dL Normal 11.8-15.4 [facility] Comment on above: Performed By: #### C BC #### [address] Lymphocytes (Bld) [#/Vol] 2.2 10*3/uL Normal 1.00-4.8 [facility] Comment on above: Performed By: #### C BC #### [address] Lymphocytes/100 WBC (Bld) 35.7 % Normal . [facility] Comment on above: Performed By: #### C BC #### [address] MCH (RBC) [Entitic mass] 30.0 pg Normal 24.7-34.3 [facility] Comment on above: Performed By: #### C BC #### [address] MCV (RBC) [Entitic vol] 89.3 fL Normal 80-100 [facility] Comment on above: Performed By: #### C BC #### [address] Mean Corpuscular HGB Conc 33.6 g/dL Normal 32.0-35.0 [facility] Comment on above: Performed By: #### C BC #### [address] Monocytes (Bld) [#/Vol] 0.4 10*3/uL Normal 0.0-0.8 [facility] Comment on above: Performed By: #### C BC #### [address] Monocytes/100 WBC (Bld) 19.75 % Normal 0.00-20.00 [facility] Comment on above: Performed By: #### C BC #### [address] Monocytes/100 WBC (Bld) 6.8 % Normal . [facility] Comment on above: Performed By: #### C BC #### [address] Neutrophils (Bld) [#/Vol] 3.3 10*3/uL Normal 1.8-7.7 [facility] Comment on above: Performed By: #### C BC #### [address] Neutrophils/100 WBC (Bld) 54.8 % Normal . [facility] Comment on above: Performed By: #### C BC #### [address] NRBC% 0.1 /100{WBC} Normal 0-0.5 [facility] Comment on above: Performed By: #### C BC #### [address] Platelet mean volume (Bld) [Entitic vol] 7.9 fL Normal 6.3-10.7 [facility] Comment on above: Performed By: #### C BC #### [place] [address] [place] Platelets (Bld) [#/Vol] 288 10*3/uL Normal 150-450 [facility] Comment on above: Performed By: #### C BC #### [place] [address] [place] RBC (Bld) [#/Vol] 4.16 10*6/uL Normal 3.60-5.00 [facility] Comment on above: Performed By: #### C BC #### [address] WBC (Bld) [#/Vol] 6.0 10*3/uL Normal 3.8-11.6 [facility] Comment on above: Performed By: #### C BC #### [facility] [address] [id number] [facility] Comprehensive Metabolic Pane christian 10-08-2023 Albumin [Mass/Vol] 4.0 g/dL Normal 3.5-5.7 [facility] Comment on above: Performed By: #### G STEFANILS #### Point of Care testing , Albumin/Globulin [Mass ratio] 1.5 {ratio} Normal [facility] Comment on above: Performed By: #### G STEFANILS #### Point of Care testing , ALP [Catalytic activity/Vol] 93 U/L Normal 34-104 [facility] Comment on above: Performed By: #### G ENIO #### Point of Care testing , ALT [Catalytic activity/Vol] 34 U/L Normal 7-52 [facility] Comment on above: Performed By: #### G ENIO #### Point of Care testing , Anion gap [Moles/Vol] 12.1 mmol/L Normal 6.0-15.0 [facility] Comment on above: Performed By: #### Ancelmo STEEN #### Point of Care testing , AST [Catalytic activity/Vol] 23 U/L Normal 13-39 [facility] Comment on above: Performed By: #### G ENIO #### Point of Care testing , Bilirubin [Mass/Vol] 0.3 mg/dL Normal 0.3-1.0 [facility] Comment on above: Performed By: #### G ENIO #### Point of Care testing , Calcium [Mass/Vol] 8.8 mg/dL Normal 8.6-10.3 [facility] Comment on above: Performed By: #### G ENIO #### Point of Care testing , Chloride [Moles/Vol] 110 mmol/L High 98-107 [facility] Comment on above: Performed By: #### G ENIO #### Point of Care testing , CO2 [Moles/Vol] 23.6 mmol/L Normal 21.0-31.0 [facility] Comment on above: Performed By: #### G STEFANILS #### Point of Care testing , Creatinine [Mass/Vol] 0.58 mg/dL Low 0.60-1.20 [facility] Comment on above: Performed By: #### G STEFANILS #### Point of Care testing , Creatinine Clr Calc Pharmacy 139.47 [facility] Comment on above: Performed By: #### G STEFANILS #### Point of Care testing , GFR/1.73 sq M.predicted MDRD (S/P/Bld) [Vol rate/Area] mL/min/{1.73_m2} [facility] Comment on above: Performed By: #### G STEFANILS #### Point of Care testing , Globulin (S) [Mass/Vol] 2.6 g/dL [facility] Comment on above: Performed By: #### G STEFANILS #### Point of Care testing , Glucose [Mass/Vol] 180 mg/dL High 70-100 [facility] Comment on above: Result Comment: [facility] Glucose Reference Range is dependent on time and content of last meal. Glucose of more than 200 mg/dL in a nonstressed, ambulatory subject supports the diagnosis of Diabetes Mellitus. ADA recommended reference range Performed By: #### G STEFANILS #### Point of Care testing , Potassium [Moles/Vol] 3.7 mmol/L Normal 3.5-5.1 [facility] Comment on above: Performed By: #### G STEFANILS #### Point of Care testing , Protein [Mass/Vol] 6.6 g/dL Normal 6.4-8.9 [facility] Comment on above: Performed By: #### G STEFANILS #### Point of Care testing , Sodium [Moles/Vol] 142 mmol/L Normal 136-145 [facility] Comment on above: Performed By: #### G STEFANILS #### Point of Care testing , Urea nitrogen [Mass/Vol] 8 mg/dL Normal 7-25 [facility] Comment on above: Performed By: #### G STEFANILS #### Point of Care testing , Lactic Acidon 01-25-2024 Lactate [Moles/Vol] 2.5 mmol/L Off scale high 0.5-2.2 [facility] Comment on above: Result Comment: Crit ical Result : Called to and read back by: GHULAM JUSTICE at: 10/08/2023 14:25:21 by:LANEY PERFORMED BY: [place] [address] PATHOLOGIST LATIN DANCER SUMAN NICHOLSON M.D. Performed By: #### C BC #### [address] Lactic Acid Reflexon 024 Lactic Acid Reflex 0.9 mmol/L Normal 0.5-2.2 [facility] Comment on above: Result Comment: PERF ORMED BY: [place] [id number] PATHOLOGIST LATIN DANCER SUMAN NICHOLSON M.D. Performed By: #### L ACTO SWBC #### [address] #### CALPROTECT #### [facility] , Lipaseon 10-08-2023 Lipase [Catalytic activity/Vol] 8.0 U/L Low 11.0-82.0 [facility] Comment on above: Result Comment: PERF ORMED BY: [place] [address] PATHOLOGIST LATIN DANCER SUMAN NICHOLSON M.D. Performed By: #### G LULS #### Point of Care testing , Magnesiumon 10-08-2023 Magnesium [Mass/Vol] 1.8 mg/dL Low 1.9-2.7 [facility] Comment on above: Result Comment: PERF ORMED BY: [place] [address] PATHOLOGIST LATIN DANCER SUMAN NICHOLSON M.D. Performed By: #### C BC #### [address] Stool Occult Blood (Guaiac)o n 10-08-2023 Stool Occult Blood (Guaiac) Occult Blood Negative for Occult Blood by Guaiac Methodology -- Reference range = Negative PERFORMED BY: [place] [address] PATHOLOGIST LATIN DANCER SUMAN NICHOLSON M.D. [facility] Comment on above: Performed By: #### L ACTO SWBC #### [facility] [address] [place] [address] Urinalysison 10-08-2023 Appearance (U) Clear Normal Clear [facility] Comment on above: Order Comment: Name Collection Type:: Clean-Voided Midstream Performed By: #### L ACTO SWBC #### [facility] [address] [place] [address] #### CALPROTECT #### [facility] , Bilirubin,Urine Negative Normal Negative [facility] Comment on above: Order Comment: Name Collection Type:: Clean-Voided Midstream Performed By: #### L ACTO SWBC #### [facility] [address] [place] [address] #### CALPROTECT #### [facility] , Color (U) Yellow Normal Yellow [facility] Comment on above: Order Comment: Name Collection Type:: Clean-Voided Midstream Performed By: #### L ACTO SWBC #### [facility] [address] [place] [address] #### CALPROTECT #### [facility] , Glucose Ql (U) Normal Normal Normal [facility] Comment on above: Order Comment: Name Collection Type:: Clean-Voided Midstream Performed By: #### L ACTO SWBC #### [facility] [address] [place] [address] #### CALPROTECT #### [facility] , Ketones Ql (U) Negative Normal Negative [facility] Comment on above: Order Comment: Name Collection Type:: Clean-Voided Midstream Performed By: #### L ACTO SWBC #### [facility] [address] [place] [address] #### CALPROTECT #### [facility] , Leukocyte esterase Test strip Ql (U) Negative Normal Negative [facility] Comment on above: Order Comment: Name Collection Type:: Clean-Voided Midstream Performed By: #### L ACTO SWBC #### [facility] [address] [place] [address] #### CALPROTECT #### [facility] , Nitrite,Urine Negative Normal Negative [facility] Comment on above: Order Comment: Name Collection Type:: Clean-Voided Midstream Performed By: #### L ACTO SWBC #### [facility] [address] [place] [address] #### CALPROTECT #### [facility] , Occult Blood,Urine Negative Normal Negative [facility] Comment on above: Order Comment: Name Collection Type:: Clean-Voided Midstream Result Comment: PERF ORMED BY: [place] [address] PATHOLOGIST LATIN DANCER SUMAN NICHOLSON M.D. Performed By: #### L ACTO SWBC #### [facility] [address] [place] [address] #### CALPROTECT #### [facility] , pH (U) 5.5 [pH] Normal 5.0-9.0 [facility] Comment on above: Order Comment: Name Collection Type:: Clean-Voided Midstream Performed By: #### L ACTO SWBC #### [facility] [address] [place] [address] #### CALPROTECT #### [facility] , Protein,Urine Negative Normal Negative [facility] Comment on above: Order Comment: Name Collection Type:: Clean-Voided Midstream Performed By: #### L ACTO SWBC #### [facility] [address] [place] [address] [place] #### CALPROTECT #### [facility] , Specificy [place],Urine 1.042 High 1.001-1.03 0 [facility] Comment on above: Order Comment: Name Collection Type:: Clean-Voided Midstream Performed By: #### L ACTO SWBC #### [facility] [address] [place] [address] #### CALPROTECT #### [facility] , Urobilinogen,Urine Normal Normal Normal [facility] Comment on above: Order Comment: Name Collection Type:: Clean-Voided Midstream Performed By: #### L ACTO SWBC #### [facility] [address] [place] [address] #### CALPROTECT #### [facility] , CNPNon 10-07-[address] [facility] 25(OH)D3 SerPl-ncon 2023 25-hydroxyvitamin D3 [Mass/Vol] 10.7 ng/mL Low 31.0-80.0 [facility] Comment on above: Order Comment: Speci men Type: BLOOD SPECIMENOrdering Facility: [facility] Address: [address] [place] [address] Result Comment: Clas sification of 25 [place] Vitamin D status:Deficiency/Insufficiency: < or = 30 ng/ml.Sufficiency/Optimal Levels: 31-80 ng/mLToxicity: > 100 ng/mL.Test performed by chemiluminescent immunoassay. Performed By: #### 1 989-3 ####[facility] LABCLIA [id number] [place] [address] [place] CBC W Auto Differential pane l (Bld)on 10-06-2023 Basophils (Bld) [#/Vol] 0.06 10*3/uL Normal <0.11 [facility] Comment on above: Order Comment: Speci men Type: BLOOD SPECIMENOrdering Facility: [facility] Address: [address] [place] [address] Performed By: #### 5 7021-8 ####[facility] LABCLIA [id number] [place] [address] Basophils/100 WBC (Bld) 1.0 % Normal [facility] Comment on above: Order Comment: Speci men Type: BLOOD SPECIMENOrdering Facility: [facility] Address: [address] [place] [address] Performed By: #### 5 7021-8 ####[facility] LABCLIA [id number] [place] [address] Differential cell count method Nom (Bld) Auto Normal [facility] Comment on above: Order Comment: Speci men Type: BLOOD SPECIMENOrdering Facility: [facility] Address: [address] [place] [address] Performed By: #### 5 7021-8 ####[facility] LABCLIA [id number] [place] [address] Eosinophils (Bld) [#/Vol] 0.08 10*3/uL Normal <0.46 [facility] Comment on above: Order Comment: Speci men Type: BLOOD SPECIMENOrdering Facility: [facility] Address: [address] [place] [address] Performed By: #### 5 7021-8 ####[facility] LABCLIA [id number] [place] [address] Eosinophils/100 WBC (Bld) 1.4 % Normal [facility] Comment on above: Order Comment: Speci men Type: BLOOD SPECIMENOrdering Facility: [facility] Address: [address] [place] [address] Performed By: #### 5 7021-8 ####[facility] LABCLIA [id number] [place] [address] Erythrocyte distribution width (RBC) [Ratio] 13.8 % Normal 11.5-15.0 [facility] Comment on above: Order Comment: Speci men Type: BLOOD SPECIMENOrdering Facility: [facility] Address: [address] [place] [address] Performed By: #### 5 7021-8 ####[facility] LABCLIA [id number] [place] [address] Hematocrit (Bld) [Volume fraction] 38.3 % Normal 36.0-46.0 [facility] Comment on above: Order Comment: Speci men Type: BLOOD SPECIMENOrdering Facility: [facility] Address: [address] [place] [address] Performed By: #### 5 7021-8 ####[facility] LABCLIA [id number] [place] [address] Hemoglobin (Bld) [Mass/Vol] 12.5 g/dL Normal 11.5-15.5 [facility] Comment on above: Order Comment: Speci men Type: BLOOD SPECIMENOrdering Facility: [facility] Address: [address] [place] [address] Performed By: #### 5 7021-8 ####[facility] LABCLIA [id number] [place] [address] Immature granulocytes (Bld) [#/Vol] 10*3/uL Normal <0.10 [facility] Comment on above: Order Comment: Speci men Type: BLOOD SPECIMENOrdering Facility: [facility] Address: [address] [place] [address] Performed By: #### 5 7021-8 ####[facility] LABCLIA [id number] [place] [address] Immature granulocytes/100 WBC (Bld) 0.2 % Normal [facility] Comment on above: Order Comment: Speci men Type: BLOOD SPECIMENOrdering Facility: [facility] Address: [address] [place] [address] Performed By: #### 5 7021-8 ####[facility] LABCLIA [id number] [place] [address] Lymphocytes (Bld) [#/Vol] 2.56 10*3/uL Normal 1.00-4.00 [facility] Comment on above: Order Comment: Speci men Type: BLOOD SPECIMENOrdering Facility: [facility] Address: [address] [place] [address] Performed By: #### 5 7021-8 ####[facility] LABCLIA [id number] [place] [address] Lymphocytes/100 WBC (Bld) 44.7 % Normal [facility] Comment on above: Order Comment: Speci men Type: BLOOD SPECIMENOrdering Facility: [facility] Address: [address] [place] [address] Performed By: #### 5 7021-8 ####[facility] LABCLIA [id number] [place] [address] MCH (RBC) [Entitic mass] 29.1 pg Normal 26.0-34.0 [facility] Comment on above: Order Comment: Speci men Type: BLOOD SPECIMENOrdering Facility: [facility] Address: [address] [place] [address] Performed By: #### 5 7021-8 ####[facility] LABCLIA [id number] [place] [address] MCHC (RBC) [Mass/Vol] 32.6 g/dL Normal 30.5-36.0 [facility] Comment on above: Order Comment: Speci men Type: BLOOD SPECIMENOrdering Facility: [facility] Address: [address] [place] [address] Performed By: #### 5 7021-8 ####[facility] LABCLIA [id number] [place] [address] MCV (RBC) [Entitic vol] 89.1 fL Normal 80.0-100.0 [facility] Comment on above: Order Comment: Speci men Type: BLOOD SPECIMENOrdering Facility: [facility] Address: [address] [place] [address] Performed By: #### 5 7021-8 ####[facility] LABCLIA [id number] [place] [address] Monocytes (Bld) [#/Vol] 0.39 10*3/uL Normal <0.87 [facility] Comment on above: Order Comment: Speci men Type: BLOOD SPECIMENOrdering Facility: [facility] Address: [address] [place] [address] Performed By: #### 5 7021-8 ####[facility] LABCLIA [id number] [place] [address] Monocytes/100 WBC (Bld) 6.8 % Normal [facility] Comment on above: Order Comment: Speci men Type: BLOOD SPECIMENOrdering Facility: [facility] Address: [address] [place] [address] Performed By: #### 5 7021-8 ####[facility] LABCLIA [id number] [place] [address] Neutrophils (Bld) [#/Vol] 2.63 10*3/uL Normal 1.45-7.50 [facility] Comment on above: Order Comment: Speci men Type: BLOOD SPECIMENOrdering Facility: [facility] Address: [address] [place] [address] Performed By: #### 5 7021-8 ####[facility] LABCLIA [id number] [place] [address] Neutrophils/100 WBC (Bld) 45.9 % Normal [facility] Comment on above: Order Comment: Speci men Type: BLOOD SPECIMENOrdering Facility: [facility] Address: [address] [place] [address] Performed By: #### 5 7021-8 ####[facility] LABCLIA [id number] [place] [address] Nucleated RBC (Bld) [#/Vol] 10*3/uL Normal <0.01 [facility] Comment on above: Order Comment: Speci men Type: BLOOD SPECIMENOrdering Facility: [facility] Address: [address] [place] [address] Performed By: #### 5 7021-8 ####[facility] LABCLIA [id number] [place] [address] Nucleated RBC/100 WBC (Bld) [Ratio] 0.0 /[address] [facility] Comment on above: Order Comment: Speci men Type: BLOOD SPECIMENOrdering Facility: [facility] Address: [address] [place] [address] Performed By: #### 5 7021-8 ####[facility] LABCLIA [id number] [place] [address] Platelet mean volume (Bld) [Entitic vol] 9.5 fL Normal 9.0-12.7 [facility] Comment on above: Order Comment: Speci men Type: BLOOD SPECIMENOrdering Facility: [facility] Address: [address] [place] [address] Performed By: #### 5 7021-8 ####[facility] LABCLIA [id number] [place] [address] Platelets (Bld) [#/Vol] 273 10*3/uL Normal 150-400 [facility] Comment on above: Order Comment: Speci men Type: BLOOD SPECIMENOrdering Facility: [facility] Address: [address] [place] [address] Performed By: #### 5 7021-8 ####[facility] LABCLIA [id number] [place] [address] RBC (Bld) [#/Vol] 4.30 10*6/uL Normal 3.90-5.20 [facility] Comment on above: Order Comment: Speci men Type: BLOOD SPECIMENOrdering Facility: [facility] Address: [address] [place] [address] Performed By: #### 5 7021-8 ####[facility] LABIA [id number] [place] [address] WBC (Bld) [#/Vol] 5.73 10*3/uL Normal 3.70-11.00 [facility] Comment on above: Order Comment: Speci men Type: BLOOD SPECIMENOrdering Facility: [facility] Address: [address] [place] [address] Performed By: #### 5 7021-8 ####[facility] LABCLIA [id number] [place] [address] Comprehensive metabolic 2000 panelon 10-06-2023 Albumin [Mass/Vol] 4.1 g/dL Normal 3.9-4.9 [facility] Comment on above: Order Comment: Speci men Type: BLOOD SPECIMENOrdering Facility: [facility] Address: [address] [place] [address] Performed By: #### 2 4323-8, , 2776- ####[facility] LABIA [id number] [place] [address] ALP [Catalytic activity/Vol] 108 U/L Normal 34-123 [facility] Comment on above: Order Comment: Speci men Type: BLOOD SPECIMENOrdering Facility: [facility] Address: [address] [place] [address] Performed By: #### 2 4323-8, , 2776- ####[facility] LABCLIA [id number] [place] [address] ALT [Catalytic activity/Vol] 35 U/L Normal 7-38 [facility] Comment on above: Order Comment: Speci men Type: BLOOD SPECIMENOrdering Facility: [facility] Address: [address] [place] [address] Performed By: #### 2 4323-8, , 2776-09 ####[facility] LABCLIA [id number] [place] [address] Anion gap [Moles/Vol] 9 mmol/L Normal 9-18 [facility] Comment on above: Order Comment: Speci men Type: BLOOD SPECIMENOrdering Facility: [facility] Address: [address] [place] [address] Performed By: #### 2 4323-8, , 2776-09 ####[facility] LABCLIA [id number] [place] [address] AST [Catalytic activity/Vol] 32 U/L Normal 13-35 [facility] Comment on above: Order Comment: Speci men Type: BLOOD SPECIMENOrdering Facility: [facility] Address: [address] [place] [address] Performed By: #### 2 4323-8, , 2776-09 ####[facility] LABCLIA [id number] [place] [address] Bilirubin [Mass/Vol] 0.4 mg/dL Normal 0.2-1.3 [facility] Comment on above: Order Comment: Speci men Type: BLOOD SPECIMENOrdering Facility: [facility] Address: [address] [place] [address] Performed By: #### 2 4323-8, , 2776-09 ####[facility] LABCLIA [id number] [place] [address] Calcium [Mass/Vol] 9.3 mg/dL Normal 8.5-10.2 [facility] Comment on above: Order Comment: Speci men Type: BLOOD SPECIMENOrdering Facility: [facility] Address: [address] [place] [address] Performed By: #### 2 4323-8, , 2776-09 ####[facility] LABCLIA [id number] [place] [address] Chloride [Moles/Vol] 104 mmol/L Normal 97-105 [facility] Comment on above: Order Comment: Speci men Type: BLOOD SPECIMENOrdering Facility: [facility] Address: [address] [place], [place] [address] Performed By: #### 2 4323-8, 08151-4, 2776-1 ####[facility] LABIA [id number] [place] [address] CO2 [Moles/Vol] 26 mmol/L Normal 22-30 [facility] Comment on above: Order Comment: Speci men Type: BLOOD SPECIMENOrdering Facility: [facility] Address: [address] [place] [address] Performed By: #### 2 4323-8, , 2776-09 ####[facility] LABIA [id number] [place] [address] Creatinine [Mass/Vol] 0.59 mg/dL Normal 0.58-0.96 [facility] Comment on above: Order Comment: Speci men Type: BLOOD SPECIMENOrdering Facility: [facility] Address: [address] [place] [address] Performed By: #### 2 4323-8, , 2776-09 ####[facility] LABIA [id number] [place] [address] Creatinine and Glomerular filtration rate.predicted panel (S/P/Bld) 112 mL/min/1.73m??? Normal >=60 [facility] Comment on above: Order Comment: Speci men Type: BLOOD SPECIMENOrdering Facility: [facility] Address: [address] [place] [address] Result Comment: Randy mated Glomerular Filtration Rate (eGFR) is calculated using the 2020 CKD-EPI creatinine equation. This equation utilizes serum creatinine, sex, and age as parameters. The creatinine assay has traceable calibration to isotope dilution-mass spectrometry. Refer to KDIGO guidelines for clinical interpretation. In patients with unstable renal function, e.g. those with acute kidney injury, the eGFR may not accurately reflect actual GFR. Performed By: #### 2 4323-8, , 2776-09 ####[facility] LABCLIA [id number] [place] [address] Glucose [Mass/Vol] 101 mg/dL High 74-99 [facility] Comment on above: Order Comment: Speci men Type: BLOOD SPECIMENOrdering Facility: [facility] Address: [address] [place] [address] Result Comment: The [place] [employer] (ADA) provides guidance for cutoff values for fasting glucose and random glucose. The ADA defines fasting as no caloric intake for at least 8 hours. Fasting plasma glucose results between 100 to 125 mg/dL indicate increased risk for diabetes (prediabetes).Fasting plasma glucose results greater than or equal to 126 mg/dL meet the criteria for diagnosis of diabetes. In the absence of unequivocal hyperglycemia, results should be confirmed by repeat testing. In a patient with classic symptoms of hyperglycemia or hyperglycemic crisis, random plasma glucose results greater than or equal to 200 mg/dL meet the criteria for diagnosis of diabetes.Reference: Standards of Medical Care in Diabetes 2016, [place] [employer]. Diabetes Care. 2016.39(Suppl 1). Performed By: #### 2 4323-8, , 2776-09 ####[facility] LABCLIA [id number] [place] [address] Potassium [Moles/Vol] 3.9 mmol/L Normal 3.7-5.1 [facility] Comment on above: Order Comment: [place] fields Type: BLOOD SPECIMENOrdering Facility: [facility] Address: [address] [place] [address] Performed By: #### 2 4323-8, , 2776-09 ####[facility] LABCLIA [id number] [place] [address] Protein [Mass/Vol] 6.6 g/dL Normal 6.3-8.0 [facility] Comment on above: Order Comment: Sharoni men Type: BLOOD SPECIMENOrdering Facility: [facility] Address: [address] [place] [address] Performed By: #### 2 4323-8, 24358-5, 1 ####[facility] LABCLIA [id number] [place] [address] Sodium [Moles/Vol] 139 mmol/L Normal 136-144 [facility] Comment on above: Order Comment: Speci men Type: BLOOD SPECIMENOrdering Facility: [facility] Address: [address] [place] [address] Performed By: #### 2 4323-8, , 2776-09 ####[facility] LABIA [id number] [place] [address] Urea nitrogen [Mass/Vol] 9 mg/dL Normal 7-21 [facility] Comment on above: Order Comment: Speci men Type: BLOOD SPECIMENOrdering Facility: [facility] Address: [address] [place] [address] Performed By: #### 2 4323-8, 79197-4, 2776-09 ####[facility] LABIA [id number] [place] [address] Magnesium SerPl-mCncon 10-06 Magnesium [Mass/Vol] 2.0 mg/dL Normal 1.7-2.3 [facility] Comment on above: Order Comment: Speci men Type: BLOOD SPECIMENOrdering Facility: [facility] Address: [address] [place] [address] Performed By: #### 2 4323-8, 14839-4, 27703-14 ####[facility] LABIA [id number] [place] [address] Phosphate SerPl-mCncon 10-06 Phosphate [Mass/Vol] 4.0 mg/dL Normal 2.7-4.8 [facility] Comment on above: Order Comment: Speci men Type: BLOOD SPECIMENOrdering Facility: [facility] Address: [facility] [place] [address] Performed By: #### 2 4323-8, 78001-0, 2777-1 ####[facility] LABCLIA [id number] [place] [address] Vit A SerPl-mCncon Retinol [Mass/Vol] 0.32 mg/L Normal 0.30-1.20 [facility] Comment on above: Order Comment: Speci men Type: BLOOD SPECIMENOrdering Facility: [facility] Address: [address] [place] [address] Result Comment: This test was developed and its performance characteristics determined by [facility] Pathology and Laboratory Medicine [place] ([facility] It has not been cleared or approved by the FDA. [facility] is regulated under CLIA as qualified to perform high-complexity testing. This test is used for clinical purposes. It should not be regarded as investigational or for research. Performed By: #### 2 923-1 ####[facility] LABCLIA [id number] [place] [address] [place] Zinc SerPl-mCncon 10-06-2023 Zinc [Mass/Vol] 52 ug/dL Low 60-120 [facility] Comment on above: Order Comment: Speci men Type: BLOOD SPECIMENOrdering Facility: [facility] Address: [address] [place] [address] Result Comment: This test was developed and its performance characteristics determined by [facility]'s [facility] Pathology and Laboratory Medicine [place] ([facility]). It has not been cleared or approved by the FDA. [facility] is regulated under CLIA as qualified to perform high-complexity testing. This test is used for clinical purposes. It should not be regarded as investigational or for research. Performed By: #### 5 763-8 ####[facility] LABCLIA [id number] [place] [address] [place] CNPNon 10-02-[address] [facility] CBC AND AUTO DIFFon 09-25-19 24 ABSOLUTE BASOPHIL 0.0 X10E9/L Normal 0.0-0.[address] [facility] Comment on above: Performed By: #### Jason CARRERA CMP, 3039-3 #### [facility] ([id number]) [address] [place] [address]70[address] ABSOLUTE NEUTROPHIL 3.1 X10E9/L Normal 1.5-6.6 [facility] Comment on above: Performed By: #### C PUMA CARRERA, 3 #### [facility] ([id number]) [address] [place] [address] 60964 Basophils/100 WBC (Bld) 0.9 % Normal [facility] Comment on above: Performed By: #### Jason CARRERA CMP, 3 #### [facility] ([id number]) [address] [place] [address] 44390 Eosinophils (Bld) [#/Vol] 0.1 10*3/uL Normal 0.0-0.4 [facility] Comment on above: Performed By: #### Jason CARRERA [facility], 3039-3 #### [facility] ([id number]) [address] [place] [address] 42287 Eosinophils/100 WBC (Bld) 1.3 % Normal [facility] Comment on above: Performed By: #### Jason CARRERA CMP, 3 #### [facility] ([id number]) [address] [place] [address] 72531 Erythrocyte distribution width (RBC) [Ratio] 14.8 % Normal 11.5-15.0 [facility] Comment on above: Performed By: #### Jason CARRERA CMP, 3039-3 #### [facility] ([id number]) [address] [place] [address] 15713 Hematocrit (Bld) [Volume fraction] 38.8 % Normal 35-47 [facility] Comment on above: Performed By: #### Jason CARRERA CMP, 3 #### [facility] ([id number]) [address] [place] [address] 27569 Hemoglobin (Bld) [Mass/Vol] 13.0 g/dL Normal 11.7-15.5 [facility] Comment on above: Performed By: #### Jason CARRERA CMP, 3039-11 #### [facility] ([id number]) [address] [place] [address] 39484 Lymphocytes (Bld) [#/Vol] 2.0 10*3/uL Normal 1.0-3.5 [facility] Comment on above: Performed By: #### Jason CARRERA CMP, 3039-11 #### [facility] ([id number]) [address] [place] [address] 34017 Lymphocytes/100 WBC (Bld) 35.0 % Normal [facility] Comment on above: Performed By: #### Jason CARRERA CMP, 3039-11 #### [facility] ([id number]) [address] [place] [address] 73105 MCH (RBC) [Entitic mass] 30.0 pg Normal 27-34 [facility] Comment on above: Performed By: #### Jason CARRERA CMP, 3039-11 #### [facility] ([id number]) [address] [place] [address] 41228 MCHC (RBC) [Mass/Vol] 33.7 g/dL Normal 32-36 [facility] Comment on above: Performed By: #### Jason CARRERA CMP, 3039-11 #### [facility] ([id number]) [address] [place] [address] 07566 MCV (RBC) [Entitic vol] 89 fL Normal 80-100 [facility] Comment on above: Performed By: #### Jason CARRERA CMP, 3040-3 #### [facility] ([id number]) [address] [place] [address] 62485 Monocytes (Bld) [#/Vol] 0.5 10*3/uL Normal 0-0.9 [facility] Comment on above: Performed By: #### Jason CARRERA, CMP, 3039-3 #### [facility] ([id number]) [address] [place] [address] 11817 Monocytes/100 WBC (Bld) 8.1 % Normal [facility] Comment on above: Performed By: #### Jason CARRERA, CMP, 3039-11 #### [facility] ([id number]) [address] [place] [address] 89943 Neutrophils/100 WBC (Bld) 54.7 % Normal [facility] Comment on above: Performed By: #### Jason CARRERA, CMP, 3 #### [facility] ([id number]) [address] [place] [address] 26985 Platelet mean volume (Bld) [Entitic vol] 8.7 fL Normal 7-12 [facility] Comment on above: Performed By: #### Jason CARRERA, CMP, 3039-11 #### [facility] ([id number]) [address] [place] [address] 17424 Platelets (Bld) [#/Vol] 269 10*3/uL Normal 150-450 [facility] Comment on above: Performed By: #### Jason CARRERA, CMP, 3039-3 #### [facility] ([id number]) [address] [place] [address] 71968 RBC COUNT 4.35 X10E12/L Normal 3.80-5.20 [facility] Comment on above: Performed By: #### Jason CARRERA, CMP, 3039-3 #### [facility] ([id number]) [address] [place] [address] 79227 WBC (Bld) [#/Vol] 5.7 10*3/uL Normal 4.0-11.[address] [facility] Comment on above: Performed By: #### C PUMA CARRERA, 0-3 #### [facility] ([id number]) [address] [place] [address] 83570 COMPREHENSIVE METABOLIC PANE Christian 09-25-2023 Albumin [Mass/Vol] 4.2 g/dL Normal 3.2-5.[address] [facility] Comment on above: Performed By: #### C PUMA CARRERA, 3039-3 #### [facility] ([id number]) [address] [place] [address] 90118 ALP [Catalytic activity/Vol] 100 U/L Normal 39-130 [facility] Comment on above: Performed By: #### Jason CARRERA CMP, 3039-3 #### [facility] ([id number]) [address] [place] [address] 82813 ALT [Catalytic activity/Vol] 53 U/L High 0-31 [facility] Comment on above: Performed By: #### Jason CARRERA [facility], 3039-3 #### [facility] ([id number]) [address] [place] [address] 94651 Anion gap [Moles/Vol] 9 mmol/L Normal 5-15 [facility] Comment on above: Performed By: #### Jason CARRERA CMP, 0-3 #### [facility] ([id number]) [address] [place] [address] 63942 AST [Catalytic activity/Vol] 45 U/L High 0-41 [facility] Comment on above: Performed By: #### Jason CARRERA CMP, 0-3 #### [facility] ([id number]) [address] [place] [address] 16379 Bilirubin [Mass/Vol] 0.4 mg/dL Normal 0.3-1.2 [facility] Comment on above: Performed By: #### C DEANDRE [facility], 3040-3 #### [facility] ([id number]) [address] [place] [address] 05201 Calcium [Mass/Vol] 8.8 mg/dL Normal 8.5-10.[address] [facility] Comment on above: Performed By: #### C DEANDRE [facility], 3039-3 #### [facility] ([id number]) [address] [place] [address] 39977 Chloride [Moles/Vol] 102 mmol/L Normal 98-109 [facility] Comment on above: Performed By: #### C PUMA CARRERA, 3 #### [facility] ([id number]) [address] [place] [address] 36521 CO2 [Moles/Vol] 27 mmol/L Normal 22-32 [facility] Comment on above: Performed By: #### C DEANDRE [facility], 3 #### [facility] ([id number]) [address] [place] [address] 73234 Creatinine [Mass/Vol] 0.51 mg/dL Normal 0.40-1.00 [facility] Comment on above: Result Comment: METH OD TRACEABLE TO IDMS STANDARD Performed By: #### C PUMA CARRERA, 3 #### [facility] ([id number]) [address] [place] [address] 95065 eGFR (CKD-EPI) NON-RACE DEPENDENT >90 Normal >59 [facility] Comment on above: Result Comment: Reported eGFR is based on the CKD-EPI 2020 equation that does not use a race coefficient. Performed By: #### C PUMA CARRERA, 0-3 #### [facility] ([id number]) [address] [place] [address] 32304 Glucose [Mass/Vol] 93 mg/dL Normal 65-[address] [facility] Comment on above: Performed By: #### C DEANDRE CMP, 3040-3 #### [facility] ([id number]) [address] [place] [address] 87350 Potassium [Moles/Vol] 4.0 mmol/L Normal 3.5-5.0 [facility] Comment on above: Performed By: #### C DEANDRE CMP, 3039-3 #### [facility] ([id number]) [address] [place] [address] 76818 Protein [Mass/Vol] 7.0 g/dL Normal 6.0-8.[address] [facility] Comment on above: Performed By: #### C DEANDRE CMP, 3039-3 #### [facility] ([id number]) [address] [place] [address] 82455 Sodium [Moles/Vol] 138 mmol/L Normal 134-[address] [facility] Comment on above: Performed By: #### Jason CARRERA CMP, 3039-3 #### [facility] ([id number]) [address] [place] [address] 15476 Urea nitrogen [Mass/Vol] 12 mg/dL Normal 5-23 [facility] Comment on above: Performed By: #### Jason CARRERA CMP, 3039-3 #### [facility] ([id number]) [address] [place] [address] 04243 LIPASEon 09-25-2023 Lipase [Catalytic activity/Vol] 28 U/L Normal 17-40 [facility] Comment on above: Performed By: #### Jason CARRERA CMP, 0-3 #### [facility] ([id number]) [address] [place] [address] 21937 CNPNon 09-17-[address] [facility] CNPNon 09-09-[address] [facility] CNPNon 09-08-[address] [facility] CNPNon 09-01-[address] [facility] CNPNon 08-26-[address] [facility] CNPNon 08-24-[address] [facility] CNPNon 08-19-[address] [facility] CASE MANAGEMon 08-17-[address] [facility] CASE MANAGEM Normal [facility] CBC panel Auto (Bld)on 08-17 Erythrocyte distribution width (RBC) [Ratio] 13.1 % Normal 11.5-15.0 [facility] Comment on above: Order Comment: Speci men Type: BLOOD SPECIMENOrdering Facility: [facility] Address: [address] [place] [address] Performed By: #### 5 8410-2 ####[facility] [id number] [place] [address] [place] Hematocrit (Bld) [Volume fraction] 34.4 % Low 36.0-46.0 [facility] Comment on above: Order Comment: Speci men Type: BLOOD SPECIMENOrdering Facility: [facility] Address: [address] [place] [address] Performed By: #### 5 8410-2 ####[facility] [id number] [place] [address] [place] Hemoglobin (Bld) [Mass/Vol] 11.2 g/dL Low 11.5-15.5 [facility] Comment on above: Order Comment: Speci men Type: BLOOD SPECIMENOrdering Facility: [facility] Address: [address] [place] [address] Performed By: #### 5 8410-2 ####[facility] [id number] [place] [address] [place] MCH (RBC) [Entitic mass] 29.6 pg Normal 26.0-34.0 [facility] Comment on above: Order Comment: Speci men Type: BLOOD SPECIMENOrdering Facility: [facility] Address: [address] [place], [place] [address] Performed By: #### 5 8410-2 ####[facility] LABCLIA [id number] [place] [address] [place] MCHC (RBC) [Mass/Vol] 32.6 g/dL Normal 30.5-36.0 [facility] Comment on above: Order Comment: Speci men Type: BLOOD SPECIMENOrdering Facility: [facility] Address: [address] [place] [address] Performed By: #### 5 8410-2 ####[facility] LABIA [id number] [place] [address] [place] MCV (RBC) [Entitic vol] 91.0 fL Normal 80.0-100.0 [facility] Comment on above: Order Comment: Speci men Type: BLOOD SPECIMENOrdering Facility: [facility] Address: [address] [place] [address] Performed By: #### 5 8410-2 ####[facility] LABIA [id number] [place] [address] [place] Nucleated RBC (Bld) [#/Vol] 10*3/uL Normal <0.01 [facility] Comment on above: Order Comment: Speci men Type: BLOOD SPECIMENOrdering Facility: [facility] Address: [address] [place] [address] Performed By: #### 5 8410-2 ####[facility] LABIA [id number] [place] [address] [place] Platelet mean volume (Bld) [Entitic vol] 9.6 fL Normal 9.0-12.7 [facility] Comment on above: Order Comment: Speci men Type: BLOOD SPECIMENOrdering Facility: [facility] Address: [address] [place] [address] Performed By: #### 5 8410-2 ####[facility] LABIA [id number] [place] [id number] [place] Platelets (Bld) [#/Vol] 220 10*3/uL Normal 150-400 [facility] Comment on above: Order Comment: Speci men Type: BLOOD SPECIMENOrdering Facility: [facility] Address: [address] [place] [address] Performed By: #### 5 8410-2 ####[facility] LABCLIA [id number] [place] [address] [place] RBC (Bld) [#/Vol] 3.78 10*6/uL Low 3.90-5.20 [facility] Comment on above: Order Comment: Speci men Type: BLOOD SPECIMENOrdering Facility: [facility] Address: [address] [place] [address] Performed By: #### 5 8410-2 ####[facility] LABCLIA [id number] [place] [address] [place] WBC (Bld) [#/Vol] 5.45 10*3/uL Normal 3.70-11.00 [facility] Comment on above: Order Comment: Speci men Type: BLOOD SPECIMENOrdering Facility: [facility] Address: [address] [place] [address] Performed By: #### 5 8410-2 ####[facility] LABCLIA [id number] [place] [address] [place] CNDSon 08-17-[address] [facility] Comprehensive metabolic 2000 panelon 08-17-2023 Albumin [Mass/Vol] 3.6 g/dL Low 3.9-4.9 [facility] Comment on above: Order Comment: Speci men Type: BLOOD SPECIMENOrdering Facility: [facility] Address: [address] [place] [address] Performed By: #### 2 4323-8, 05728-5, 2777-1 ####[facility] LABCLIA [id number] [place] [address] [place] ALP [Catalytic activity/Vol] 98 U/L Normal 34-123 [facility] Comment on above: Order Comment: Speci men Type: BLOOD SPECIMENOrdering Facility: [facility] Address: [address] [place] [address] Performed By: #### 2 4323-8, , 2776-09 ####[facility] LABCLIA [id number] [place] [address] [place] ALT [Catalytic activity/Vol] 46 U/L High 7-38 [facility] Comment on above: Order Comment: Speci men Type: BLOOD SPECIMENOrdering Facility: [facility] Address: [address] [place] [address] Performed By: #### 2 4323-8, , 2776-09 ####[facility] LABCLIA [id number] [place] [address] [place] Anion gap [Moles/Vol] 5 mmol/L Low 9-18 [facility] Comment on above: Order Comment: Speci men Type: BLOOD SPECIMENOrdering Facility: [facility] Address: [address] [place] [address] Performed By: #### 2 4323-8, , 2776-09 ####[facility] LABCLIA [id number] [place] [address] [place] AST [Catalytic activity/Vol] 42 U/L High 13-35 [facility] Comment on above: Order Comment: Speci men Type: BLOOD SPECIMENOrdering Facility: [facility] Address: [address] [place] [address] Performed By: #### 2 4323-8, , 2776-09 ####[facility] LABCLIA [id number] [place] [id number] [place] Bilirubin [Mass/Vol] mg/dL Low 0.2-1.3 [facility] Comment on above: Order Comment: Speci men Type: BLOOD SPECIMENOrdering Facility: [facility] Address: [address] [place] [address] Performed By: #### 2 4323-8, , 2776-09 ####[facility] LABCLIA [id number] [place] [address] [place] Calcium [Mass/Vol] 8.6 mg/dL Normal 8.5-10.2 [facility] Comment on above: Order Comment: Speci men Type: BLOOD SPECIMENOrdering Facility: [facility] Address: [address] [place] [address] Performed By: #### 2 4323-8, , 2776-09 ####[facility] LABCLIA [id number] [place] [address] [place] Chloride [Moles/Vol] 107 mmol/L High 97-105 [facility] Comment on above: Order Comment: Speci men Type: BLOOD SPECIMENOrdering Facility: [facility] Address: [address] [place] [address] Performed By: #### 2 4323-8, , 2776-09 ####[facility] LABCLIA [id number] [place] [address] [place] CO2 [Moles/Vol] 30 mmol/L Normal 22-30 [facility] Comment on above: Order Comment: Speci men Type: BLOOD SPECIMENOrdering Facility: [facility] Address: [address] [place] [address] Performed By: #### 2 4323-8, , 2776-09 ####[facility] LABCLIA [id number] [place] [address] [place] Creatinine [Mass/Vol] 0.79 mg/dL Normal 0.58-0.96 [facility] Comment on above: Order Comment: Speci men Type: BLOOD SPECIMENOrdering Facility: [facility] Address: [address] [place] [address] Performed By: #### 2 4323-8, 21652-6, 2777-1 ####[facility] LABIA [id number] [place] [address] [place] Creatinine and Glomerular filtration rate.predicted panel (S/P/Bld) 94 mL/min/1.73m??? Normal >=60 [facility] Comment on above: Order Comment: [place] fields Type: BLOOD SPECIMENOrdering Facility: [facility] Address: [address] [place] [address] Result Comment: Randy mated Glomerular Filtration Rate (eGFR) is calculated using the 2020 CKD-EPI creatinine equation. This equation utilizes serum creatinine, sex, and age as parameters. The creatinine assay has traceable calibration to isotope dilution-mass spectrometry. Refer to KDIGO guidelines for clinical interpretation. In patients with unstable renal function, e.g. those with acute kidney injury, the eGFR may not accurately reflect actual GFR. Performed By: #### 2 4323-8, 42393-8, 2777-1 ####[facility] LABIA [id number] [place] [address] [place] Glucose [Mass/Vol] 104 mg/dL High 74-99 [facility] Comment on above: Order Comment: [place] fields Type: BLOOD SPECIMENOrdering Facility: [facility] Address: [address] [place] [address] Result Comment: The [place] [employer] (ADA) provides guidance for cutoff values for fasting glucose and random glucose. The ADA defines fasting as no caloric intake for at least 8 hours. Fasting plasma glucose results between 100 to 125 mg/dL indicate increased risk for diabetes (prediabetes).Fasting plasma glucose results greater than or equal to 126 mg/dL meet the criteria for diagnosis of diabetes. In the absence of unequivocal hyperglycemia, results should be confirmed by repeat testing. In a patient with classic symptoms of hyperglycemia or hyperglycemic crisis, random plasma glucose results greater than or equal to 200 mg/dL meet the criteria for diagnosis of diabetes.Reference: Standards of Medical Care in Diabetes 2016, [place] [employer]. Diabetes Care. 2016.39(Suppl 1). Performed By: #### 2 4323-8, , 2776-09 ####[facility] LABCLIA [id number] [address] [address] [place] Potassium [Moles/Vol] 4.6 mmol/L Normal 3.7-5.1 [facility] Comment on above: Order Comment: Speci men Type: BLOOD SPECIMENOrdering Facility: [facility] Address: [address] [place] [address] Performed By: #### 2 432-8, , 2776-09 ####[facility] LABCLIA [id number] [place] [address] [place] Protein [Mass/Vol] 6.0 g/dL Low 6.3-8.0 [facility] Comment on above: Order Comment: Speci men Type: BLOOD SPECIMENOrdering Facility: [facility] Address: [address] [place] [address] Performed By: #### 2 432-8, , 2776-09 ####[facility] LABIA [id number] [place] [id number] [place] Sodium [Moles/Vol] 142 mmol/L Normal 136-144 [facility] Comment on above: Order Comment: Speci men Type: BLOOD SPECIMENOrdering Facility: [facility] Address: [address] [place] [address] Performed By: #### 2 4323-8, , 2776-09 ####[facility] LABIA [id number] [address] [address] [place] Urea nitrogen [Mass/Vol] 12 mg/dL Normal 7-21 [facility] Comment on above: Order Comment: Speci men Type: BLOOD SPECIMENOrdering Facility: [facility] Address: [address] [place] [address] Performed By: #### 2 4323-8, , 2776-09 ####[facility] LABCLIA [id number] [address] [address] [place] Magnesium SerPl-mCncon 08-17 Magnesium [Mass/Vol] 2.4 mg/dL High 1.7-2.3 [facility] [place] Comment on above: Order Comment: Speci men Type: BLOOD SPECIMENOrdering Facility: [facility] Address: [place] [id number] Performed By: #### 2 4323-8, 03801-0, 2777- ####[facility] LABCLIA [id number] [place] [address] [place] PT EDon 08-17-[address] [facility] Phosphate [Mass/Vol] 3.7 mg/dL Normal 2.7-4.8 [facility] [place] Comment on above: Order Comment: Speci men Type: BLOOD SPECIMENOrdering Facility: [facility] Address: [place] [address] Performed By: #### 2 4323-8, , 27703-14 ####[facility] LABCLIA [id number] [place] [id number] [place] XR ABDOMEN 1V SUPINEon 08-16 XR ABDOMEN 1V SUPINE Normal [facility] [place] Basic metabolic 2000 panelon 08-15-2023 Anion gap [Moles/Vol] 9 mmol/L Normal 9-18 [facility] Comment on above: Order Comment: Speci men Type: BLOOD SPECIMENOrdering Facility: [facility] Address: [place] [address] Performed By: #### 2 4321-2 ####[facility] LABCLIA [id number] [place] [id number] [place] Calcium [Mass/Vol] 8.8 mg/dL Normal 8.5-10.2 [facility] Comment on above: Order Comment: Speci men Type: BLOOD SPECIMENOrdering Facility: [facility] Address: [address] [place] [address] Performed By: #### 2 4321-2 ####[facility] LABCLIA [id number] [place] [address] [place] Chloride [Moles/Vol] 106 mmol/L High 97-105 [facility] [place] Comment on above: Order Comment: Speci men Type: BLOOD SPECIMENOrdering Facility: [facility] Address: [address] [place] [address] Performed By: #### 2 4321-2 ####[facility] LABCLIA [id number] [place] [address] [place] CO2 [Moles/Vol] 28 mmol/L Normal 22-30 [facility] Comment on above: Order Comment: Speci men Type: BLOOD SPECIMENOrdering Facility: [facility] Address: [address] [place] [address] Performed By: #### 2 4321-2 ####[facility] LABCLIA [id number] [place] [address] [place] Creatinine [Mass/Vol] 0.67 mg/dL Normal 0.58-0.96 [facility] Comment on above: Order Comment: Speci men Type: BLOOD SPECIMENOrdering Facility: [facility] Address: [address] [place] [address] Performed By: #### 2 4321-2 ####[facility] LABCLIA [id number] [place] [address] [place] Creatinine and Glomerular filtration rate.predicted panel (S/P/Bld) 109 mL/min/1.73m??? Normal >=60 [facility] Comment on above: Order Comment: Speci men Type: BLOOD SPECIMENOrdering Facility: [facility] Address: [address] [place] [address] Result Comment: Randy mated Glomerular Filtration Rate (eGFR) is calculated using the 2020 CKD-EPI creatinine equation. This equation utilizes serum creatinine, sex, and age as parameters. The creatinine assay has traceable calibration to isotope dilution-mass spectrometry. Refer to KDIGO guidelines for clinical interpretation. In patients with unstable renal function, e.g. those with acute kidney injury, the eGFR may not accurately reflect actual GFR. Performed By: #### 2 4321-2 ####[facility] LABCLIA [id number] [place] [address] [place] Glucose [Mass/Vol] 79 mg/dL Normal 74-99 [facility] Comment on above: Order Comment: [place] fields Type: BLOOD SPECIMENOrdering Facility: [facility] Address: [address] [place] [address] Result Comment: The [place] [employer] (ADA) provides guidance for cutoff values for fasting glucose and random glucose. The ADA defines fasting as no caloric intake for at least 8 hours. Fasting plasma glucose results between 100 to 125 mg/dL indicate increased risk for diabetes (prediabetes).Fasting plasma glucose results greater than or equal to 126 mg/dL meet the criteria for diagnosis of diabetes. In the absence of unequivocal hyperglycemia, results should be confirmed by repeat testing. In a patient with classic symptoms of hyperglycemia or hyperglycemic crisis, random plasma glucose results greater than or equal to 200 mg/dL meet the criteria for diagnosis of diabetes.Reference: Standards of Medical Care in Diabetes 2016, [place] [employer]. Diabetes Care. 2016.39(Suppl 1). Performed By: #### 2 4321-2 ####[facility] LABIA [id number] [place] [address] [place] Potassium [Moles/Vol] 4.3 mmol/L Normal 3.7-5.1 [facility] Comment on above: Order Comment: [place] fields Type: BLOOD SPECIMENOrdering Facility: [facility] Address: [address] [place] [address] Performed By: #### 2 4321-2 ####[facility] LABCLIA [id number] [place] [id number] [place] Sodium [Moles/Vol] 143 mmol/L Normal 136-144 [facility] Comment on above: Order Comment: Speci men Type: BLOOD SPECIMENOrdering Facility: [facility] Address: [address] [place] [address] Performed By: #### 2 4321-2 ####[facility] LABCLIA [id number] [address] [address] [place] Urea nitrogen [Mass/Vol] 10 mg/dL Normal 7-21 [facility] Comment on above: Order Comment: Speci men Type: BLOOD SPECIMENOrdering Facility: [facility] Address: [address] [place] [address] Performed By: #### 2 4321-2 ####[facility] LABCLIA [id number] [address] [address] [place] ALLIED HEALTHon 08-14-[address] [facility] Basic metabolic 2000 panelon 08-14-2023 Anion gap [Moles/Vol] 8 mmol/L Low 9-18 [facility] Comment on above: Order Comment: Speci men Type: BLOOD SPECIMENOrdering Facility: [facility] Address: [address] [place] [address] Performed By: #### 2 4321-2 ####[facility] LABCLIA [id number] [place] [address] [place] Calcium [Mass/Vol] 9.0 mg/dL Normal 8.5-10.2 [facility] Comment on above: Order Comment: Speci men Type: BLOOD SPECIMENOrdering Facility: [facility] Address: [address] [place] [address] Performed By: #### 2 4321-2 ####[facility] LABCLIA [id number] [place] [address] [place] Chloride [Moles/Vol] 104 mmol/L Normal 97-105 [facility] [place] Comment on above: Order Comment: Speci men Type: BLOOD SPECIMENOrdering Facility: [facility] Address: [address] [place] [address] Performed By: #### 2 4321-2 ####[facility] LABCLIA [id number] [place] [address] [place] CO2 [Moles/Vol] 28 mmol/L Normal 22-30 [facility] Comment on above: Order Comment: Speci men Type: BLOOD SPECIMENOrdering Facility: [facility] Address: [address] [place] [address] Performed By: #### 2 4321-2 ####[facility] LABCLIA [id number] [place] [address] [place] Creatinine [Mass/Vol] 0.64 mg/dL Normal 0.58-0.96 [facility] Comment on above: Order Comment: Speci men Type: BLOOD SPECIMENOrdering Facility: [facility] Address: [address] [place] [address] Performed By: #### 2 4321-2 ####[facility] LABCLIA [id number] [place] [address] [place] Creatinine and Glomerular filtration rate.predicted panel (S/P/Bld) 111 mL/min/1.73m??? Normal >=60 [facility] Comment on above: Order Comment: Speci men Type: BLOOD SPECIMENOrdering Facility: [facility] Address: [address] [place] [address] Result Comment: Randy mated Glomerular Filtration Rate (eGFR) is calculated using the 2020 CKD-EPI creatinine equation. This equation utilizes serum creatinine, sex, and age as parameters. The creatinine assay has traceable calibration to isotope dilution-mass spectrometry. Refer to KDIGO guidelines for clinical interpretation. In patients with unstable renal function, e.g. those with acute kidney injury, the eGFR may not accurately reflect actual GFR. Performed By: #### 2 4321-2 ####[facility] LABCLIA [id number] [place] [id number] [place] Glucose [Mass/Vol] 89 mg/dL Normal 74-99 [facility] Comment on above: Order Comment: Speci men Type: BLOOD SPECIMENOrdering Facility: [facility] Address: [address] [place] [address] Result Comment: The [place] Diabetes Association (ADA) provides guidance for cutoff values for fasting glucose and random glucose. The ADA defines fasting as no caloric intake for at least 8 hours. Fasting plasma glucose results between 100 to 125 mg/dL indicate increased risk for diabetes (prediabetes).Fasting plasma glucose results greater than or equal to 126 mg/dL meet the criteria for diagnosis of diabetes. In the absence of unequivocal hyperglycemia, results should be confirmed by repeat testing. In a patient with classic symptoms of hyperglycemia or hyperglycemic crisis, random plasma glucose results greater than or equal to 200 mg/dL meet the criteria for diagnosis of diabetes.Reference: Standards of Medical Care in Diabetes 2016, [place] [employer]. Diabetes Care. 2016.39(Suppl 1). Performed By: #### 2 4321-2 ####[facility] LABCLIA [id number] [place] [address] [place] Potassium [Moles/Vol] 4.3 mmol/L Normal 3.7-5.1 [facility] Comment on above: Order Comment: Speci men Type: BLOOD SPECIMENOrdering Facility: [facility] Address: [address] [place] [address] Performed By: #### 2 4321-2 ####[facility] LABCLIA [id number] [place] [address] [place] Sodium [Moles/Vol] 140 mmol/L Normal 136-144 [facility] Comment on above: Order Comment: Speci men Type: BLOOD SPECIMENOrdering Facility: [facility] Address: [address] [place] [address] Performed By: #### 2 4321-2 ####[facility] LABCLIA [id number] [place] [address] [place] Urea nitrogen [Mass/Vol] 9 mg/dL Normal 7-21 [facility] Comment on above: Order Comment: Speci men Type: BLOOD SPECIMENOrdering Facility: [facility] Address: [address] [place] [id number] Performed By: #### 2 4321-2 ####[facility] LABCLIA [id number] [place] [address] [place] NUTRITIONon 08-14-[address] [facility] ANES POSTPROC EVALon 023 ANES POSTPROC EVAL Normal [facility] ANES PRE-OPon 08-13-2023 ANES PRE-OP Normal [facility] Basic metabolic 2000 panelon 08-13-2023 Anion gap [Moles/Vol] 9 mmol/L Normal 9-18 [facility] Comment on above: Order Comment: Speci men Type: BLOOD SPECIMENOrdering Facility: [facility] Address: [address] [place] [address] Performed By: #### 2 4321-2 ####[facility] LABCLIA [id number] [place] [address] [place] Calcium [Mass/Vol] 8.9 mg/dL Normal 8.5-10.2 [facility] Comment on above: Order Comment: Speci men Type: BLOOD SPECIMENOrdering Facility: [facility] Address: [address] [place] [address] Performed By: #### 2 4321-2 ####[facility] LABCLIA [id number] [place] [address] [place] Chloride [Moles/Vol] 104 mmol/L Normal 97-105 [facility] [place] Comment on above: Order Comment: Speci men Type: BLOOD SPECIMENOrdering Facility: [facility] Address: [address] [place] [address] Performed By: #### 2 4321-2 ####[facility] LABCLIA [id number] [address] [address] [place] CO2 [Moles/Vol] 25 mmol/L Normal 22-30 [facility] Comment on above: Order Comment: Speci men Type: BLOOD SPECIMENOrdering Facility: [facility] Address: [address] [place] [address] Performed By: #### 2 4321-2 ####[facility] LABIA [id number] [place] [address] [place] Creatinine [Mass/Vol] 0.73 mg/dL Normal 0.58-0.96 [facility] Comment on above: Order Comment: Speci men Type: BLOOD SPECIMENOrdering Facility: [facility] Address: [address] [place] [address] Performed By: #### 2 4321-2 ####[facility] LABIA [id number] [place] [address] [place] Creatinine and Glomerular filtration rate.predicted panel (S/P/Bld) 103 mL/min/1.73m??? Normal >=60 [facility] Comment on above: Order Comment: Speci men Type: BLOOD SPECIMENOrdering Facility: [facility] Address: [address] [place] [address] Result Comment: Randy mated Glomerular Filtration Rate (eGFR) is calculated using the 2020 CKD-EPI creatinine equation. This equation utilizes serum creatinine, sex, and age as parameters. The creatinine assay has traceable calibration to isotope dilution-mass spectrometry. Refer to KDIGO guidelines for clinical interpretation. In patients with unstable renal function, e.g. those with acute kidney injury, the eGFR may not accurately reflect actual GFR. Performed By: #### 2 4321-2 ####[facility] LABIA [id number] [place] [address] [place] Glucose [Mass/Vol] 93 mg/dL Normal 74-99 [facility] Comment on above: Order Comment: Speci men Type: BLOOD SPECIMENOrdering Facility: [facility] Address: [address] [place] [address] Result Comment: The [place] Diabetes [employer] (ADA) provides guidance for cutoff values for fasting glucose and random glucose. The ADA defines fasting as no caloric intake for at least 8 hours. Fasting plasma glucose results between 100 to 125 mg/dL indicate increased risk for diabetes (prediabetes).Fasting plasma glucose results greater than or equal to 126 mg/dL meet the criteria for diagnosis of diabetes. In the absence of unequivocal hyperglycemia, results should be confirmed by repeat testing. In a patient with classic symptoms of hyperglycemia or hyperglycemic crisis, random plasma glucose results greater than or equal to 200 mg/dL meet the criteria for diagnosis of diabetes.Reference: Standards of Medical Care in Diabetes 2016, [place] [employer]. Diabetes Care. 2016.39(Suppl 1). Performed By: #### 2 4321-2 ####[facility] LABCLIA [id number] [place] [address] [place] Potassium [Moles/Vol] 4.5 mmol/L Normal 3.7-5.1 [facility] Comment on above: Order Comment: [place] fields Type: BLOOD SPECIMENOrdering Facility: [facility] Address: [address] [place] [address] Performed By: #### 2 432-2 ####[facility] LABIA [id number] [place] [address] [place] Sodium [Moles/Vol] 138 mmol/L Normal 136-144 [facility] Comment on above: Order Comment: [place] fields Type: BLOOD SPECIMENOrdering Facility: [facility] Address: [address] [place] [address] Performed By: #### 2 4321-2 ####[facility] LABCLIA [id number] [place] [address] [place] Urea nitrogen [Mass/Vol] 12 mg/dL Normal 7-21 [facility] Comment on above: Order Comment: Sharoni donnie Type: BLOOD SPECIMENOrdering Facility: [facility] Address: [address] [place] [address] Performed By: #### 2 4321-2 ####[facility] LABCLIA [id number] [place] [address] [place] CBC panel Auto (Bld)on 08-13 Erythrocyte distribution width (RBC) [Ratio] 13.2 % Normal 11.5-15.0 [facility] Comment on above: Order Comment: Speci men Type: BLOOD SPECIMENOrdering Facility: [facility] Address: [address] [place] [address] Performed By: #### 5 8410-2 ####[facility] LABCLIA [id number] [place] [address] [place] Hematocrit (Bld) [Volume fraction] 34.8 % Low 36.0-46.0 [facility] Comment on above: Order Comment: Speci men Type: BLOOD SPECIMENOrdering Facility: [facility] Address: [address] [place] [address] Performed By: #### 5 8410-2 ####[facility] LABCLIA [id number] [place] [address] [place] Hemoglobin (Bld) [Mass/Vol] 11.3 g/dL Low 11.5-15.5 [facility] Comment on above: Order Comment: Speci men Type: BLOOD SPECIMENOrdering Facility: [facility] Address: [address] [place] [address] Performed By: #### 5 8410-2 ####[facility] LABIA [id number] [place] [address] [place] MCH (RBC) [Entitic mass] 29.7 pg Normal 26.0-34.0 [facility] Comment on above: Order Comment: Speci men Type: BLOOD SPECIMENOrdering Facility: [facility] Address: [address] [place] [address] Performed By: #### 5 8410-2 ####[facility] LABCLIA [id number] [place] [address] [place] MCHC (RBC) [Mass/Vol] 32.5 g/dL Normal 30.5-36.0 [facility] Comment on above: Order Comment: Speci men Type: BLOOD SPECIMENOrdering Facility: [facility] Address: [facility] [place] [address] Performed By: #### 5 8410-2 ####[facility] LABIA [id number] [place] [address] [place] MCV (RBC) [Entitic vol] 91.6 fL Normal 80.0-100.0 [facility] Comment on above: Order Comment: Speci men Type: BLOOD SPECIMENOrdering Facility: [facility] Address: [address] [place] [address] Performed By: #### 5 8410-2 ####[facility] LABIA [id number] [place] [address] [place] Nucleated RBC (Bld) [#/Vol] 10*3/uL Normal <0.01 [facility] Comment on above: Order Comment: Speci men Type: BLOOD SPECIMENOrdering Facility: [facility] Address: [address] [place] [address] Performed By: #### 5 8410-2 ####[facility] LABIA [id number] [place] [address] [place] Platelet mean volume (Bld) [Entitic vol] 10.4 fL Normal 9.0-12.7 [facility] Comment on above: Order Comment: Speci men Type: BLOOD SPECIMENOrdering Facility: [facility] Address: [address] [place] [address] Performed By: #### 5 8410-2 ####[facility] LABCLIA [id number] [place] [address] [place] Platelets (Bld) [#/Vol] 197 10*3/uL Normal 150-400 [facility] Comment on above: Order Comment: Speci men Type: BLOOD SPECIMENOrdering Facility: [facility] Address: [address] [place] [address] Performed By: #### 5 8410-2 ####[facility] LABCLIA [id number] [place] [address] [place] RBC (Bld) [#/Vol] 3.80 10*6/uL Low 3.90-5.20 [facility] Comment on above: Order Comment: Speci men Type: BLOOD SPECIMENOrdering Facility: [facility] Address: [address] [place] [address] Performed By: #### 5 8410-2 ####[facility] LABCLIA [id number] [place] [address] [place] WBC (Bld) [#/Vol] 5.49 10*3/uL Normal 3.70-11.00 [facility] Comment on above: Order Comment: Speci men Type: BLOOD SPECIMENOrdering Facility: [facility] Address: [address] [place] [address] Performed By: #### 5 8410-2 ####[facility] LABCLIA [id number] [place] [address] [place] Upper GI endoscopyon 023 Upper GI endoscopy Normal [facility] XR ABDOMEN 1V SUPINEon 08-13 XR ABDOMEN 1V SUPINE Normal [facility] [place] Basic metabolic 2000 panelon 08-12-2023 Anion gap [Moles/Vol] 7 mmol/L Low 9-18 [facility] Comment on above: Order Comment: Speci men Type: BLOOD SPECIMENOrdering Facility: [facility] Address: [address] [place] [address] Performed By: #### 1 9123-9, 2777-1, 21552-6 ####[facility] LABCLIA [id number] [place] [address] [place] Calcium [Mass/Vol] 8.6 mg/dL Normal 8.5-10.2 [facility] Comment on above: Order Comment: Speci men Type: BLOOD SPECIMENOrdering Facility: [facility] Address: [address] [place] [address] Performed By: #### 1 9123-9, 2777-, 84590-6 ####[facility] LABCLIA [id number] [place] [id number] [place] Chloride [Moles/Vol] 102 mmol/L Normal 97-105 [facility] [place] Comment on above: Order Comment: Speci men Type: BLOOD SPECIMENOrdering Facility: [facility] Address: [address] [place] [address] Performed By: #### 1 9123-9, 2777-, 83234-0 ####[facility] LABIA [id number] [place] [address] [place] CO2 [Moles/Vol] 30 mmol/L Normal 22-30 [facility] Comment on above: Order Comment: Speci men Type: BLOOD SPECIMENOrdering Facility: [facility] Address: [address] [place] [address] Performed By: #### 1 9123-9, 2777-, 91190-6 ####[facility] LABIA [id number] [place] [id number] [place] Creatinine [Mass/Vol] 0.83 mg/dL Normal 0.58-0.96 [facility] Comment on above: Order Comment: Speci men Type: BLOOD SPECIMENOrdering Facility: [facility] Address: [address] [place] [address] Performed By: #### 1 9123-9, 2777-, 25672-0 ####[facility] LABIA [id number] [place] [id number] [place] Creatinine and Glomerular filtration rate.predicted panel (S/P/Bld) 88 mL/min/1.73m??? Normal >=60 [facility] Comment on above: Order Comment: Speci men Type: BLOOD SPECIMENOrdering Facility: [facility] Address: [address] [place] [address] Result Comment: Randy mated Glomerular Filtration Rate (eGFR) is calculated using the 2021 CKD-EPI creatinine equation. This equation utilizes serum creatinine, sex, and age as parameters. The creatinine assay has traceable calibration to isotope dilution-mass spectrometry. Refer to KDIGO guidelines for clinical interpretation. In patients with unstable renal function, e.g. those with acute kidney injury, the eGFR may not accurately reflect actual GFR. Performed By: #### 1 9123-9, 2777-, 55714-0 ####[facility] LABCLIA [id number] [facility] [address] [address] [place] Glucose [Mass/Vol] 83 mg/dL Normal 74-99 [facility] Comment on above: Order Comment: Speci men Type: BLOOD SPECIMENOrdering Facility: [facility] Address: [address] [place] [address] Result Comment: The [place] [employer] (ADA) provides guidance for cutoff values for fasting glucose and random glucose. The ADA defines fasting as no caloric intake for at least 8 hours. Fasting plasma glucose results between 100 to 125 mg/dL indicate increased risk for diabetes (prediabetes).Fasting plasma glucose results greater than or equal to 126 mg/dL meet the criteria for diagnosis of diabetes. In the absence of unequivocal hyperglycemia, results should be confirmed by repeat testing. In a patient with classic symptoms of hyperglycemia or hyperglycemic crisis, random plasma glucose results greater than or equal to 200 mg/dL meet the criteria for diagnosis of diabetes.Reference: Standards of Medical Care in Diabetes 2016, [place] [employer]. Diabetes Care. 2016.39(Suppl 1). Performed By: #### 1 9123-9, 2777, 54209-8 ####[facility] LABCLIA [id number] [address] [address] [place] Potassium [Moles/Vol] 4.7 mmol/L Normal 3.7-5.1 [facility] Comment on above: Order Comment: Sharoni men Type: BLOOD SPECIMENOrdering Facility: [facility] Address: [address] [place] [address] Performed By: #### 1 9123-9, 2777-, 82041-6 ####[facility] LABCLIA [id number] [place] [id number] [place] Sodium [Moles/Vol] 139 mmol/L Normal 136-144 [facility] Comment on above: Order Comment: Speci men Type: BLOOD SPECIMENOrdering Facility: [facility] Address: [address] [place] [address] Performed By: #### 1 9123-9, 2777-1, 73560-2 ####[facility] LABCLIA [id number] [place] [address] [place] Urea nitrogen [Mass/Vol] 11 mg/dL Normal 7-21 [facility] Comment on above: Order Comment: Speci men Type: BLOOD SPECIMENOrdering Facility: [facility] Address: [address] [place] [address] Performed By: #### 1 9123-9, 2777-1, 51623-2 ####[facility] LABIA [id number] [place] [address] [place] CASE MANAGEMon 08-12-[address] [facility] Magnesium [Mass/Vol] 2.0 mg/dL Normal 1.7-2.3 [facility] Comment on above: Order Comment: Speci men Type: BLOOD SPECIMENOrdering Facility: [facility] Address: [address] [place] [address] Performed By: #### 1 9123-9, 2777-, 76959-6 ####[facility] LABCLIA [id number] [place] [id number] [place] NUTRITIONon 08-12-[address] [facility] Phosphate SerPl-mCncon 08-12 Phosphate [Mass/Vol] 4.5 mg/dL Normal 2.7-4.8 [facility] Comment on above: Order Comment: Speci men Type: BLOOD SPECIMENOrdering Facility: [facility] Address: [address] [place] [address] Performed By: #### 1 9123-9, 2777-1, 11091-6 ####[facility] LABCLIA [id number] [place] [id number] [place] CASE MANAGEMon 08-11-[address] [facility] Magnesium SerPl-ncon 08-11 Magnesium [Mass/Vol] 2.2 mg/dL Normal 1.7-2.3 [facility] Comment on above: Order Comment: Speci men Type: BLOOD SPECIMENOrdering Facility: [facility] Address: [address] [place] [address] Performed By: #### 1 9123-9, 2777- ####[facility] LABCLIA [id number] [place] [address] [place] Magnesium [Mass/Vol] 2.1 mg/dL Normal 1.7-2.3 [facility] Comment on above: Order Comment: Speci men Type: BLOOD SPECIMENOrdering Facility: [facility] Address: [address] [place] [address] Performed By: #### 1 9123-9, 2777- ####[facility] LABCLIA [id number] [place] [address] [place] Phosphate SerPl-mCncon 08-11 Phosphate [Mass/Vol] 4.2 mg/dL Normal 2.7-4.8 [facility] Comment on above: Order Comment: Speci men Type: BLOOD SPECIMENOrdering Facility: [facility] Address: [address] [place] [id number] Performed By: #### 1 9123-9, 2777- ####[facility] LABCLIA [id number] [place] [address] [place] Phosphate [Mass/Vol] 4.8 mg/dL Normal 2.7-4.8 [facility] Comment on above: Order Comment: Speci men Type: BLOOD SPECIMENOrdering Facility: [facility] Address: [address] [place] [id number] Performed By: #### 1 9123-9, 2777-1 ####[facility] LABCLIA [id number] [place] [address] [place] CASE MGT INIT ASSESon 2022 CASE MGT INIT ASSES Normal [facility] ECG COMPLETEon 08-10-[address] [facility] Magnesium SerPl-mCncon 08-10 Magnesium [Mass/Vol] 2.1 mg/dL Normal 1.7-2.3 [facility] Comment on above: Order Comment: Speci men Type: BLOOD SPECIMENOrdering Facility: [facility] Address: [address] [place] [address] Performed By: #### 2 777-1, 50336-9 ####[facility] LABCLIA [id number] [address] [place] Magnesium [Mass/Vol] 2.1 mg/dL Normal 1.7-2.3 [facility] Comment on above: Order Comment: Speci men Type: BLOOD SPECIMENOrdering Facility: [facility] Address: [address] [place] [address] Performed By: #### 2 777-1, ####[facility] LABCLIA [id number] [place] [address] [place] NURSING PROGon 08-10-[address] [facility] Phosphate SerPl-mCncon 08-10 Phosphate [Mass/Vol] 4.4 mg/dL Normal 2.7-4.8 [facility] Comment on above: Order Comment: Speci men Type: BLOOD SPECIMENOrdering Facility: [facility] Address: [address] [place] [address] Performed By: #### 2 777-1, ####[facility] LABCLIA [id number] [place] [address] [place] Phosphate [Mass/Vol] 4.1 mg/dL Normal 2.7-4.8 [facility] Comment on above: Order Comment: Speci men Type: BLOOD SPECIMENOrdering Facility: [facility] Address: [address] [place] [address] Performed By: #### 2 777-1, 71171-9 ####[facility] LABCLIA [id number] [place] [address] [place] Basic metabolic 2000 panelon 08-09-2023 Anion gap [Moles/Vol] 8 mmol/L Low 9-18 [facility] Comment on above: Order Comment: Speci men Type: BLOOD SPECIMENOrdering Facility: [facility] Address: [address] [place] [address] Performed By: #### 1 9123-9, 90044-5, 277- ####[facility] LABCLIA [id number] [place] [address] [place] Calcium [Mass/Vol] 8.2 mg/dL Low 8.5-10.2 [facility] Comment on above: Order Comment: Speci men Type: BLOOD SPECIMENOrdering Facility: [facility] Address: [address] [place] [address] Performed By: #### 1 9123-9, 98161-8, 277- ####[facility] LABCLIA [id number] [place] [address] [place] Chloride [Moles/Vol] 107 mmol/L High 97-105 [facility] Comment on above: Order Comment: Speci men Type: BLOOD SPECIMENOrdering Facility: [facility] Address: [address] [place] [address] Performed By: #### 1 9123-9, 39130-7, 2776-1 ####[facility] LABCLIA [id number] [id number] [address] [place] CO2 [Moles/Vol] 28 mmol/L Normal 22-30 [facility] Comment on above: Order Comment: [place] fields Type: BLOOD SPECIMENOrdering Facility: [facility] Address: [address] [place] [address] Performed By: #### 1 9123-9, 58763-7, 2776-09 ####[facility] LABCLIA [id number] [place] [address] [place] Creatinine [Mass/Vol] 0.61 mg/dL Normal 0.58-0.96 [facility] Comment on above: Order Comment: Reno men Type: BLOOD SPECIMENOrdering Facility: [facility] Address: [address] [place] [address] Performed By: #### 1 9123-9, 20562-1, 2776-09 ####[facility] LABCLIA [id number] [address] [place] Creatinine and Glomerular filtration rate.predicted panel (S/P/Bld) 112 mL/min/1.73m??? Normal >=60 [facility] Comment on above: Order Comment: [place] fields Type: BLOOD SPECIMENOrdering Facility: [facility] Address: [address] [place] [address] Result Comment: Randy mated Glomerular Filtration Rate (eGFR) is calculated using the 2020 CKD-EPI creatinine equation. This equation utilizes serum creatinine, sex, and age as parameters. The creatinine assay has traceable calibration to isotope dilution-mass spectrometry. Refer to KDIGO guidelines for clinical interpretation. In patients with unstable renal function, e.g. those with acute kidney injury, the eGFR may not accurately reflect actual GFR. Performed By: #### 1 9123-9, 13552-9, 2776-09 ####[facility] LABCLIA [id number] [place] [address] [place] Glucose [Mass/Vol] 84 mg/dL Normal 74-99 [facility] Comment on above: Order Comment: Sharoni men Type: BLOOD SPECIMENOrdering Facility: [facility] Address: [address] [place] [id number] Result Comment: The [place] [employer] (ADA) provides guidance for cutoff values for fasting glucose and random glucose. The ADA defines fasting as no caloric intake for at least 8 hours. Fasting plasma glucose results between 100 to 125 mg/dL indicate increased risk for diabetes (prediabetes).Fasting plasma glucose results greater than or equal to 126 mg/dL meet the criteria for diagnosis of diabetes. In the absence of unequivocal hyperglycemia, results should be confirmed by repeat testing. In a patient with classic symptoms of hyperglycemia or hyperglycemic crisis, random plasma glucose results greater than or equal to 200 mg/dL meet the criteria for diagnosis of diabetes.Reference: Standards of Medical Care in Diabetes 2016, [place] [employer]. Diabetes Care. 2016.39(Suppl 1). Performed By: #### 1 9123-9, 83576-5, 2776-09 ####[facility] LABCLIA [id number] [place] [address] [place] Potassium [Moles/Vol] 4.5 mmol/L Normal 3.7-5.1 [facility] Comment on above: Order Comment: Speci men Type: BLOOD SPECIMENOrdering Facility: [facility] Address: [address] [place] [address] Performed By: #### 1 9123-9, 70112-9, 2776-09 ####[facility] LABCLIA [id number] [place] [address] [place] Sodium [Moles/Vol] 143 mmol/L Normal 136-144 [facility] Comment on above: Order Comment: Speci men Type: BLOOD SPECIMENOrdering Facility: [facility] Address: [address] [place] [address] Performed By: #### 1 9123-9, 65064-3, 2776-09 ####[facility] LABCLIA [id number] [place] [id number] [place] Urea nitrogen [Mass/Vol] 5 mg/dL Low 7-21 [facility] Comment on above: Order Comment: Speci men Type: BLOOD SPECIMENOrdering Facility: [facility] Address: [address] [place] [address] Performed By: #### 1 9123-9, 45924-7, 2777-1 ####[facility] LABCLIA [id number] [place] [address] [place] CBC panel Auto (Bld)on 08-09 Erythrocyte distribution width (RBC) [Ratio] 13.5 % Normal 11.5-15.0 [facility] Comment on above: Order Comment: Speci men Type: BLOOD SPECIMENOrdering Facility: [facility] Address: [address] [place] [address] Performed By: #### 5 8410-2 ####[facility] LABIA [id number] [place] [address] [place] Hematocrit (Bld) [Volume fraction] 31.2 % Low 36.0-46.0 [facility] Comment on above: Order Comment: Speci men Type: BLOOD SPECIMENOrdering Facility: [facility] Address: [address] [place] [address] Performed By: #### 5 8410-2 ####[facility] LABIA [id number] [place] [address] [place] Hemoglobin (Bld) [Mass/Vol] 10.2 g/dL Low 11.5-15.5 [facility] Comment on above: Order Comment: Speci men Type: BLOOD SPECIMENOrdering Facility: [facility] Address: [address] [place] [address] Performed By: #### 5 8410-2 ####[facility] LABIA [id number] [place] [address] [place] MCH (RBC) [Entitic mass] 29.8 pg Normal 26.0-34.0 [facility] Comment on above: Order Comment: Speci men Type: BLOOD SPECIMENOrdering Facility: [facility] Address: [address] [place] [address] Performed By: #### 5 8410-2 ####[facility] LABCLIA [id number] [place] [address] [place] MCHC (RBC) [Mass/Vol] 32.7 g/dL Normal 30.5-36.0 [facility] Comment on above: Order Comment: Speci men Type: BLOOD SPECIMENOrdering Facility: [facility] Address: [address] [place] [address] Performed By: #### 5 8410-2 ####[facility] LABCLIA [id number] [place] [address] [place] MCV (RBC) [Entitic vol] 91.2 fL Normal 80.0-100.0 [facility] Comment on above: Order Comment: Speci men Type: BLOOD SPECIMENOrdering Facility: [facility] Address: [address] [place] [address] Performed By: #### 5 8410-2 ####[facility] LABIA [id number] [place] [address] [place] Nucleated RBC (Bld) [#/Vol] 10*3/uL Normal <0.01 [facility] Comment on above: Order Comment: Speci men Type: BLOOD SPECIMENOrdering Facility: [facility] Address: [address] [place] [address] Performed By: #### 5 8410-2 ####[facility] LABIA [id number] [place] [address] [place] Platelet mean volume (Bld) [Entitic vol] 10.5 fL Normal 9.0-12.7 [facility] Comment on above: Order Comment: Speci men Type: BLOOD SPECIMENOrdering Facility: [facility] Address: [address] [place] [address] Performed By: #### 5 8410-2 ####[facility] LABIA [id number] [place] [address] [place] Platelets (Bld) [#/Vol] 169 10*3/uL Normal 150-400 [facility] Comment on above: Order Comment: Speci men Type: BLOOD SPECIMENOrdering Facility: [facility] Address: [address] [place] [address] Performed By: #### 5 8410-2 ####[facility] LABCLIA [id number] [place] [address] [place] RBC (Bld) [#/Vol] 3.42 10*6/uL Low 3.90-5.20 [facility] Comment on above: Order Comment: Speci men Type: BLOOD SPECIMENOrdering Facility: [facility] Address: [address] [place] [address] Performed By: #### 5 8410-2 ####[facility] LABCLIA [id number] [place] [address] [place] WBC (Bld) [#/Vol] 4.17 10*3/uL Normal 3.70-11.00 [facility] Comment on above: Order Comment: Speci men Type: BLOOD SPECIMENOrdering Facility: [facility] Address: [address] [place] [address] Performed By: #### 5 8410-2 ####[facility] LABCLIA [id number] [place] [address] [place] Magnesium SerPl-mCncon 08-09 Magnesium [Mass/Vol] 2.0 mg/dL Normal 1.7-2.3 [facility] Comment on above: Order Comment: Speci men Type: BLOOD SPECIMENOrdering Facility: [facility] Address: [address] [place] [address] Performed By: #### 1 9123-9, 28334-4, 2777-1 ####[facility] LABCLIA [id number] [place] [id number] [place] NUTRITIONon 08-09-[address] [facility] Phosphate SerPl-mCncon 08-09 Phosphate [Mass/Vol] 4.5 mg/dL Normal 2.7-4.8 [facility] Comment on above: Order Comment: Speci men Type: BLOOD SPECIMENOrdering Facility: [facility] Address: [address] [place] [address] Performed By: #### 1 9123-9, 85125-3, 2777-1 ####[facility] LABCLIA [id number] [place] [address] [place] Basic metabolic 2000 panelon 08-08-2023 Anion gap [Moles/Vol] 9 mmol/L Normal 9-18 [facility] Comment on above: Order Comment: Speci men Type: BLOOD SPECIMENOrdering Facility: [facility] Address: [address] [place] [address] Performed By: #### 2 4321-2 ####[facility] LABCLIA [id number] [place] [address] [place] Calcium [Mass/Vol] 8.3 mg/dL Low 8.5-10.2 [facility] Comment on above: Order Comment: Speci men Type: BLOOD SPECIMENOrdering Facility: [facility] Address: [address] [place] [address] Performed By: #### 2 4321-2 ####[facility] LABCLIA [id number] [place] [address] [place] Chloride [Moles/Vol] 109 mmol/L High 97-105 [facility] Comment on above: Order Comment: Speci men Type: BLOOD SPECIMENOrdering Facility: [facility] Address: [address] [place] [address] Performed By: #### 2 4321-2 ####[facility] LABCLIA [id number] [place] [address] [place] CO2 [Moles/Vol] 24 mmol/L Normal 22-30 [facility] Comment on above: Order Comment: Speci men Type: BLOOD SPECIMENOrdering Facility: [facility] Address: [address] [place] [address] Performed By: #### 2 4321-2 ####[facility] LABIA [id number] [place] [address] [place] Creatinine [Mass/Vol] 0.62 mg/dL Normal 0.58-0.96 [facility] Comment on above: Order Comment: Speci men Type: BLOOD SPECIMENOrdering Facility: [facility] Address: [address] [place] [address] Performed By: #### 2 4321-2 ####[facility] LABIA [id number] [address] [place] Creatinine and Glomerular filtration rate.predicted panel (S/P/Bld) 111 mL/min/1.73m??? Normal >=60 [facility] Comment on above: Order Comment: Speci men Type: BLOOD SPECIMENOrdering Facility: [facility] Address: [address] [place] [address] Result Comment: Randy mated Glomerular Filtration Rate (eGFR) is calculated using the 2020 CKD-EPI creatinine equation. This equation utilizes serum creatinine, sex, and age as parameters. The creatinine assay has traceable calibration to isotope dilution-mass spectrometry. Refer to KDIGO guidelines for clinical interpretation. In patients with unstable renal function, e.g. those with acute kidney injury, the eGFR may not accurately reflect actual GFR. Performed By: #### 2 4321-2 ####[facility] LABIA [id number] [place] [address] [place] Glucose [Mass/Vol] 85 mg/dL Normal 74-99 [facility] Comment on above: Order Comment: Speci men Type: BLOOD SPECIMENOrdering Facility: [facility] Address: [address] [place] [address] Result Comment: The [place] [employer] (ADA) provides guidance for cutoff values for fasting glucose and random glucose. The ADA defines fasting as no caloric intake for at least 8 hours. Fasting plasma glucose results between 100 to 125 mg/dL indicate increased risk for diabetes (prediabetes).Fasting plasma glucose results greater than or equal to 126 mg/dL meet the criteria for diagnosis of diabetes. In the absence of unequivocal hyperglycemia, results should be confirmed by repeat testing. In a patient with classic symptoms of hyperglycemia or hyperglycemic crisis, random plasma glucose results greater than or equal to 200 mg/dL meet the criteria for diagnosis of diabetes.Reference: Standards of Medical Care in Diabetes 2016, [place] [employer]. Diabetes Care. 2016.39(Suppl 1). Performed By: #### 2 4321-2 ####[facility] LABCLIA [id number] [place] [address] [place] Potassium [Moles/Vol] 4.0 mmol/L Normal 3.7-5.1 [facility] Comment on above: Order Comment: Speci men Type: BLOOD SPECIMENOrdering Facility: [facility] Address: [address] [place] [address] Performed By: #### 2 4321-2 ####[facility] LABIA [id number] [place] [address] [place] Sodium [Moles/Vol] 142 mmol/L Normal 136-144 [facility] Comment on above: Order Comment: Sharoni donnie Type: BLOOD SPECIMENOrdering Facility: [facility] Address: [address] [place] [address] Performed By: #### 2 4321-2 ####[facility] LABCLIA [id number] [place] [address] [place] Urea nitrogen [Mass/Vol] 8 mg/dL Normal 7-21 [facility] Comment on above: Order Comment: Speci men Type: BLOOD SPECIMENOrdering Facility: [facility] Address: [address] [place] [address] Performed By: #### 2 4321-2 ####[facility] LABCLIA [id number] [place] [address] [place] CBC panel Auto (Bld)on 08-08 Erythrocyte distribution width (RBC) [Ratio] 13.7 % Normal 11.5-15.0 [facility] Comment on above: Order Comment: Speci men Type: BLOOD SPECIMENOrdering Facility: [facility] Address: [address] [place] [address] Performed By: #### 5 8410-2 ####[facility] LABCLIA [id number] [place] [address] [place] Hematocrit (Bld) [Volume fraction] 31.5 % Low 36.0-46.0 [facility] Comment on above: Order Comment: Speci men Type: BLOOD SPECIMENOrdering Facility: [facility] Address: [address] [place] [address] Performed By: #### 5 8410-2 ####[facility] LABCLIA [id number] [place] [address] [place] Hemoglobin (Bld) [Mass/Vol] 10.3 g/dL Low 11.5-15.5 [facility] Comment on above: Order Comment: Speci men Type: BLOOD SPECIMENOrdering Facility: [facility] Address: [address] [place] [address] Performed By: #### 5 8410-2 ####[facility] LABCLIA [id number] [place] [address] [place] MCH (RBC) [Entitic mass] 29.7 pg Normal 26.0-34.0 [facility] Comment on above: Order Comment: Speci men Type: BLOOD SPECIMENOrdering Facility: [facility] Address: [address] [place] [address] Performed By: #### 5 8410-2 ####[facility] LABCLIA [id number] [place] [address] [place] MCHC (RBC) [Mass/Vol] 32.7 g/dL Normal 30.5-36.0 [facility] Comment on above: Order Comment: Speci men Type: BLOOD SPECIMENOrdering Facility: [facility] Address: [address] [place] [address] Performed By: #### 5 8410-2 ####[facility] LABCLIA [id number] [place] [address] [place] MCV (RBC) [Entitic vol] 90.8 fL Normal 80.0-100.0 [facility] Comment on above: Order Comment: Speci men Type: BLOOD SPECIMENOrdering Facility: [facility] Address: [address] [place] [address] Performed By: #### 5 8410-2 ####[facility] LABIA [id number] [place] [address] [place] Nucleated RBC (Bld) [#/Vol] 10*3/uL Normal <0.01 [facility] Comment on above: Order Comment: Speci men Type: BLOOD SPECIMENOrdering Facility: [facility] Address: [address] [place] [address] Performed By: #### 5 8410-2 ####[facility] LABIA [id number] [place] [address] [place] Platelet mean volume (Bld) [Entitic vol] 10.5 fL Normal 9.0-12.7 [facility] Comment on above: Order Comment: Speci men Type: BLOOD SPECIMENOrdering Facility: [facility] Address: [address] [place] [address] Performed By: #### 5 8410-2 ####[facility] LABCLIA [id number] [place] [address] [place] Platelets (Bld) [#/Vol] 186 10*3/uL Normal 150-400 [facility] Comment on above: Order Comment: Speci men Type: BLOOD SPECIMENOrdering Facility: [facility] Address: [address] [place] [address] Performed By: #### 5 8410-2 ####[facility] LABCLIA [id number] [place] [id number] [place] RBC (Bld) [#/Vol] 3.47 10*6/uL Low 3.90-5.20 [facility] Comment on above: Order Comment: Speci men Type: BLOOD SPECIMENOrdering Facility: [facility] Address: [address] [place] [address] Performed By: #### 5 8410-2 ####[facility] LABCLIA [id number] [place] [address] [place] WBC (Bld) [#/Vol] 5.39 10*3/uL Normal 3.70-11.00 [facility] Comment on above: Order Comment: Speci men Type: BLOOD SPECIMENOrdering Facility: [facility] Address: [address] [place] [address] Performed By: #### 5 8410-2 ####[facility] LABCLIA [id number] [place] [id number] [place] NURSING PROGon 08-08-[address] [facility] NUTRITIONon 08-08-[address] [facility] ANES POSTPROC EVALon 023 ANES POSTPROC EVAL Normal [facility] ANES PRE-OPon 08-07-2023 ANES PRE-OP Normal [facility] BRIEF OP NOTon 08-07-[address] Normal [facility] HISTORY PHYSICALon HISTORY PHYSICAL Normal [facility] HISTORY PHYSICAL Normal [facility] NURSING PROGon 08-07-[address] [facility] NURSING PROG Normal [facility] NURSING PROG Normal [facility] Upper GI endoscopyon 023 Upper GI endoscopy Normal [facility] XR ABDOMEN 1V SUPINEon 08-07 XR ABDOMEN 1V SUPINE Normal [facility] XR ABDOMEN 1V SUPINE Normal [facility] XR CHEST 1V FRONTAL PORTon 1 10-07-2022 XR CHEST 1V FRONTAL PORT Normal [facility] CNPNon 08-04-[address] [facility] CNOVon 08-03-[address] [facility] A-Tocopherol Vit E SerPl-mCn con 07-31-2023 Alpha tocopherol [Mass/Vol] 9.2 mg/L Normal 6.0-23.0 [facility] Comment on above: Order Comment: Speci men Type: BLOOD SPECIMENOrdering Facility: [facility] Address: [address] [place] [address] Performed By: #### 2 923-1, 1822-12 ####[facility] LABCLIA [id number] [place] [address] [place] Alpha tocopherol [Mass/Vol]o n 07-31-2023 Beta+gamma tocopherol [Mass/Vol] 1.5 mg/L Normal 0.3-3.2 [facility] Comment on above: Order Comment: Speci men Type: BLOOD SPECIMENOrdering Facility: [facility] Address: [address] [place] [address] Result Comment: This test was developed and its performance characteristics determined by [facility]'s [facility] Medicine [place] ([facility] It has not been cleared or approved by the FDA. -[facility] is regulated under CLIA as qualified to perform high-complexity testing. This test is used for clinical purposes. It should not be regarded as investigational or for research. Performed By: #### 2 923-1, 1822-12 ####[facility] LABCLIA [id number] [place] [address] [place] CBC W Auto Differential pane l (Bld)on 07-31-2023 Basophils (Bld) [#/Vol] 0.06 10*3/uL Normal <0.11 [facility] Comment on above: Order Comment: Speci men Type: BLOOD SPECIMENOrdering Facility: [facility] Address: [address] [place] [address] Performed By: #### 5 7021-8 ####[facility] LABCLIA [id number] [place] [address] Basophils/100 WBC (Bld) 1.0 % Normal [facility] Comment on above: Order Comment: Speci men Type: BLOOD SPECIMENOrdering Facility: [facility] Address: [address] [place] [address] Performed By: #### 5 7021-8 ####[facility] LABCLIA [id number] [place] [address] Differential cell count method Nom (Bld) Auto Normal [facility] Comment on above: Order Comment: Speci men Type: BLOOD SPECIMENOrdering Facility: [facility] Address: [address] [place] [address] Performed By: #### 5 7021-8 ####[facility] LABCLIA [id number] [place] [address] Eosinophils (Bld) [#/Vol] 0.06 10*3/uL Normal <0.46 [facility] Comment on above: Order Comment: Speci men Type: BLOOD SPECIMENOrdering Facility: [facility] Address: [address] [place] [address] Performed By: #### 5 7021-8 ####[facility] LABCLIA [id number] [place] [address] Eosinophils/100 WBC (Bld) 1.0 % Normal [facility] Comment on above: Order Comment: Speci men Type: BLOOD SPECIMENOrdering Facility: [facility] Address: [address] [place] [address] Performed By: #### 5 7021-8 ####[facility] LABCLIA [id number] [place] [address] Erythrocyte distribution width (RBC) [Ratio] 13.7 % Normal 11.5-15.0 [facility] Comment on above: Order Comment: Speci men Type: BLOOD SPECIMENOrdering Facility: [facility] Address: [address] [place] [address] Performed By: #### 5 7021-8 ####[facility] LABCLIA [id number] [place] [address] Hematocrit (Bld) [Volume fraction] 40.9 % Normal 36.0-46.0 [facility] Comment on above: Order Comment: Speci men Type: BLOOD SPECIMENOrdering Facility: [facility] Address: [address] [place] [address] Performed By: #### 5 7021-8 ####[facility] LABCLIA [id number] [place] [address] Hemoglobin (Bld) [Mass/Vol] 13.3 g/dL Normal 11.5-15.5 [facility] Comment on above: Order Comment: Speci men Type: BLOOD SPECIMENOrdering Facility: [facility] Address: [address] [place] [address] Performed By: #### 5 7021-8 ####[facility] LABCLIA [id number] [place] [address] Immature granulocytes (Bld) [#/Vol] 10*3/uL Normal <0.10 [facility] Comment on above: Order Comment: Speci men Type: BLOOD SPECIMENOrdering Facility: [facility] Address: [address] [place] [address] Performed By: #### 5 7021-8 ####[facility] LABCLIA [id number] [place] [address] Immature granulocytes/100 WBC (Bld) 0.2 % Normal [facility] Comment on above: Order Comment: Speci men Type: BLOOD SPECIMENOrdering Facility: [facility] Address: [address] [place] [address] Performed By: #### 5 7021-8 ####[facility] LABCLIA [id number] [place] [address] Lymphocytes (Bld) [#/Vol] 2.27 10*3/uL Normal 1.00-4.00 [facility] Comment on above: Order Comment: Speci men Type: BLOOD SPECIMENOrdering Facility: [facility] Address: [address] [place] [address] Performed By: #### 5 7021-8 ####[facility] LABCLIA [id number] [place] [address] Lymphocytes/100 WBC (Bld) 37.5 % Normal [facility] Comment on above: Order Comment: Speci men Type: BLOOD SPECIMENOrdering Facility: [facility] Address: [address] [place] [address] Performed By: #### 5 7021-8 ####[facility] LABCLIA [id number] [place] [address] MCH (RBC) [Entitic mass] 28.9 pg Normal 26.0-34.0 [facility] Comment on above: Order Comment: Speci men Type: BLOOD SPECIMENOrdering Facility: [facility] Address: [address] [place] [address] Performed By: #### 5 7021-8 ####[facility] LABCLIA [id number] [place] [address] MCHC (RBC) [Mass/Vol] 32.5 g/dL Normal 30.5-36.0 [facility] Comment on above: Order Comment: Speci men Type: BLOOD SPECIMENOrdering Facility: [facility] Address: [address] [place] [address] Performed By: #### 5 7021-8 ####[facility] LABCLIA [id number] [place] [address] MCV (RBC) [Entitic vol] 88.9 fL Normal 80.0-100.0 [facility] Comment on above: Order Comment: Speci men Type: BLOOD SPECIMENOrdering Facility: [facility] Address: [address] [place] [address] Performed By: #### 5 7021-8 ####[facility] LABCLIA [id number] [place] [address] Monocytes (Bld) [#/Vol] 0.45 10*3/uL Normal <0.87 [facility] Comment on above: Order Comment: Speci men Type: BLOOD SPECIMENOrdering Facility: [facility] Address: [address] [place] [address] Performed By: #### 5 7021-8 ####[facility] LABCLIA [id number] [place] [address] Monocytes/100 WBC (Bld) 7.4 % Normal [facility] Comment on above: Order Comment: Speci men Type: BLOOD SPECIMENOrdering Facility: [facility] Address: [address] [place] [address] Performed By: #### 5 7021-8 ####[facility] LABCLIA [id number] [place] [address] Neutrophils (Bld) [#/Vol] 3.20 10*3/uL Normal 1.45-7.50 [facility] Comment on above: Order Comment: Speci men Type: BLOOD SPECIMENOrdering Facility: [facility] Address: [address] [place] [address] Performed By: #### 5 7021-8 ####[facility] LABCLIA [id number] [place] [address] Neutrophils/100 WBC (Bld) 52.9 % Normal [facility] Comment on above: Order Comment: Speci men Type: BLOOD SPECIMENOrdering Facility: [facility] Address: [address] [place] [address] Performed By: #### 5 7021-8 ####[facility] LABCLIA [id number] [place] [address] Nucleated RBC (Bld) [#/Vol] 10*3/uL Normal <0.01 [facility] Comment on above: Order Comment: Speci men Type: BLOOD SPECIMENOrdering Facility: [facility] Address: [address] [place] [address] Performed By: #### 5 7021-8 ####[facility] LABCLIA [id number] [place] [address] Nucleated RBC/100 WBC (Bld) [Ratio] 0.0 /[address] [facility] Comment on above: Order Comment: Speci men Type: BLOOD SPECIMENOrdering Facility: [facility] Address: [address] [place] [address] Performed By: #### 5 7021-8 ####[facility] LABCLIA [id number] [place] [address] Platelet mean volume (Bld) [Entitic vol] 10.0 fL Normal 9.0-12.7 [facility] Comment on above: Order Comment: Speci men Type: BLOOD SPECIMENOrdering Facility: [facility] Address: [address] [place] [address] Performed By: #### 5 7021-8 ####[facility] LABCLIA [id number] [place] [address] Platelets (Bld) [#/Vol] 249 10*3/uL Normal 150-400 [facility] Comment on above: Order Comment: Speci men Type: BLOOD SPECIMENOrdering Facility: [facility] Address: [address] [place] [address] Performed By: #### 5 7021-8 ####[facility] LABCLIA [id number] [place] [address] RBC (Bld) [#/Vol] 4.60 10*6/uL Normal 3.90-5.20 [facility] Comment on above: Order Comment: Speci men Type: BLOOD SPECIMENOrdering Facility: [facility] Address: [address] [place] [address] Performed By: #### 5 7021-8 ####[facility] LABCLIA [id number] [place] [address] WBC (Bld) [#/Vol] 6.05 10*3/uL Normal 3.70-11.00 [facility] Comment on above: Order Comment: Speci men Type: BLOOD SPECIMENOrdering Facility: [facility] Address: [address] [place] [address] Performed By: #### 5 7021-8 ####[facility] LABCLIA [id number] [place] [address] CELIAC SCREENon 07-31-2023 GLIAD DEAMIDATED IGA QUAL Negative Normal Negative, Test not Indicated [facility] Comment on above: Order Comment: Speci men Type: BLOOD SPECIMENOrdering Facility: [facility] Address: [address] [place] [address] Result Comment: This is used as an aid in diagnosis of celiac disease. Clinical correlation is required.The following results were obtained with an [employer] Lite Gliadin IgA AKILAH Gliadin. Gliadin IgA values obtained with different manufacturers' assay methods may not be used interchangeably. The magnitude of the reported IgA levels cannot be correlated to an endpoint titer. Performed By: #### L [id number] ####[facility] LABCLIA [id number] [place] [address] [place] Gliadin peptide IgA Qn (S) 5 Units Normal <20 [facility] Comment on above: Order Comment: Reno fields Type: BLOOD SPECIMENOrdering Facility: [facility] Address: [address] [place] [address] Performed By: #### L [id number] ####[facility] LABCLIA [id number] [place] [address] [place] INTERPRETATION No serological evide nce of celiac disease, however, if celiac disease is clinically suspected and patient is not on gluten-free diet, histological diagnosis may be considered. HLA testing may help with risk assessment. Normal [facility] Comment on above: Order Comment: Reno fields Type: BLOOD SPECIMENOrdering Facility: [facility] Address: [address] [place] [address] Performed By: #### L [id number] ####[facility] LABCLIA [id number] TRANSGLUTAMINASE IGA ABS INTERPRETATION Negative Normal Negative [facility] Comment on above: Order Comment: Speci donnie Type: BLOOD SPECIMENOrdering Facility: [facility] Address: [address] [place] [address] Result Comment: The following results were obtained with [employer] R h-tTG IgA AKILAH.???R h-tTG IgA values obtained with different manufacturers' assay methods may not be used interchangeably. The magnitude of the reported IgA levels cannot be corelated to an endpoint???concentration.This is used as an aid in diagnosis of celiac disease. Clinical correlation is required. Performed By: #### L [id number] ####[facility] LABIA [id number] [address] [place] tTG IgA Qn (S) <2 Normal <4 [facility] Comment on above: Order Comment: Sharoni donnie Type: BLOOD SPECIMENOrdering Facility: [facility] Address: [address] [place] [address] Performed By: #### L [id number] ####[facility] LABCLIA [id number] [place] [address] [place] COPPER BLOODon 07-31-2023 Copper [Mass/Vol] 99 ug/dL Normal 80-155 [facility] Comment on above: Order Comment: Sahroni donnie Type: BLOOD SPECIMENOrdering Facility: [facility] Address: [address] [place] [address] Result Comment: This test was developed and its performance characteristics determined by [facility]'s [facility] Pathology and Laboratory Medicine [place] ([facility]). It has not been cleared or approved by the FDA. [facility] is regulated under CLIA as qualified to perform high-complexity testing. This test is used for clinical purposes. It should not be regarded as investigational or for research. Performed By: #### 5 763-8, COPPER ####[facility] LABCLIA [id number] [place] [address] [place] CRP SerPl-mCncon 07-31-2023 CRP [Mass/Vol] mg/L Normal <0.9 [facility] Comment on above: Order Comment: Speci men Type: BLOOD SPECIMENOrdering Facility: [facility] Address: [address] [place] [address] Performed By: #### 1 988-5 ####[facility] LABCLIA [id number] [address] OF [facility] Comprehensive metabolic 2000 panelon 07-31-2023 Albumin [Mass/Vol] 4.8 g/dL Normal 3.9-4.9 [facility] Comment on above: Order Comment: Speci men Type: BLOOD SPECIMENOrdering Facility: [facility] Address: [address] [place] [address] Performed By: #### 2 777-1, , ####[facility] LABCLIA [id number] [place] [address] ALP [Catalytic activity/Vol] 125 U/L High 34-123 [facility] Comment on above: Order Comment: Speci men Type: BLOOD SPECIMENOrdering Facility: [facility] Address: [address] [place] [address] Performed By: #### 2 777-1, , ####[facility] LABCLIA [id number] [place] [address] ALT [Catalytic activity/Vol] 18 U/L Normal 7-38 [facility] Comment on above: Order Comment: Speci men Type: BLOOD SPECIMENOrdering Facility: [facility] Address: [address] [place] [address] Performed By: #### 2 777-1, , ####[facility] LABCLIA [id number] [place] [address] Anion gap [Moles/Vol] 12 mmol/L Normal 9-18 [facility] Comment on above: Order Comment: Speci men Type: BLOOD SPECIMENOrdering Facility: [facility] Address: [address] [place] [address] Performed By: #### 2 777-1, , ####[facility] LABCLIA [id number] [place] [address] AST [Catalytic activity/Vol] 17 U/L Normal 13-35 [facility] Comment on above: Order Comment: Speci men Type: BLOOD SPECIMENOrdering Facility: [facility] Address: [address] [place] [id number] Performed By: #### 2 777-1, , ####[facility] LABIA [id number] [place] [address] Bilirubin [Mass/Vol] 0.5 mg/dL Normal 0.2-1.3 [facility] [place] Comment on above: Order Comment: Speci men Type: BLOOD SPECIMENOrdering Facility: [facility] Address: [address] [place] [address] Performed By: #### 2 777-1, , ####[facility] LABIA [id number] [place] [address] Calcium [Mass/Vol] 9.6 mg/dL Normal 8.5-10.2 [facility] Comment on above: Order Comment: Speci men Type: BLOOD SPECIMENOrdering Facility: [facility] Address: [address] [place] [address] Performed By: #### 2 777-1, , ####[facility] LABIA [id number] [place] [address] Chloride [Moles/Vol] 102 mmol/L Normal 97-105 [facility] [place] Comment on above: Order Comment: Speci men Type: BLOOD SPECIMENOrdering Facility: [facility] Address: [address] [place] [address] Performed By: #### 2 777-1, , ####[facility] LABCLIA [id number] [place] [address] CO2 [Moles/Vol] 27 mmol/L Normal 22-30 [facility] Comment on above: Order Comment: Speci men Type: BLOOD SPECIMENOrdering Facility: [facility] Address: [address] [place] [address] Performed By: #### 2 777-1, , ####[facility] LABIA [id number] [place] [address] Creatinine [Mass/Vol] 0.66 mg/dL Normal 0.58-0.96 [facility] Comment on above: Order Comment: Speci men Type: BLOOD SPECIMENOrdering Facility: [facility] Address: [address] [place] [address] Performed By: #### 2 777-1, , ####[facility] LABIA [id number] [place] [address] Creatinine and Glomerular filtration rate.predicted panel (S/P/Bld) 110 mL/min/1.73m??? Normal >=60 [facility] Comment on above: Order Comment: Speci men Type: BLOOD SPECIMENOrdering Facility: [facility] Address: [address] [place] [address] Result Comment: Randy mated Glomerular Filtration Rate (eGFR) is calculated using the 2020 CKD-EPI creatinine equation. This equation utilizes serum creatinine, sex, and age as parameters. The creatinine assay has traceable calibration to isotope dilution-mass spectrometry. Refer to KDIGO guidelines for clinical interpretation. In patients with unstable renal function, e.g. those with acute kidney injury, the eGFR may not accurately reflect actual GFR. Performed By: #### 2 777-1, , ####[facility] LABIA [id number] [place] [address] Glucose [Mass/Vol] 88 mg/dL Normal 74-99 [facility] Comment on above: Order Comment: Speci men Type: BLOOD SPECIMENOrdering Facility: [facility] Address: [address] [place] [address] Result Comment: The [place] Diabetes [employer] (ADA) provides guidance for cutoff values for fasting glucose and random glucose. The ADA defines fasting as no caloric intake for at least 8 hours. Fasting plasma glucose results between 100 to 125 mg/dL indicate increased risk for diabetes (prediabetes).Fasting plasma glucose results greater than or equal to 126 mg/dL meet the criteria for diagnosis of diabetes. In the absence of unequivocal hyperglycemia, results should be confirmed by repeat testing. In a patient with classic symptoms of hyperglycemia or hyperglycemic crisis, random plasma glucose results greater than or equal to 200 mg/dL meet the criteria for diagnosis of diabetes.Reference: Standards of Medical Care in Diabetes 2016, [place] [employer]. Diabetes Care. 2016.39(Suppl 1). Performed By: #### 2 777-1, , ####[facility] LABCLIA [id number] [place] [address] Potassium [Moles/Vol] 3.6 mmol/L Low 3.7-5.1 [facility] Comment on above: Order Comment: Speci men Type: BLOOD SPECIMENOrdering Facility: [facility] Address: [address] [place] [address] Performed By: #### 2 777-1, , ####[facility] LABCLIA [id number] [place] [address] Protein [Mass/Vol] 7.0 g/dL Normal 6.3-8.0 [facility] Comment on above: Order Comment: Speci men Type: BLOOD SPECIMENOrdering Facility: [facility] Address: [address] [place] [address] Performed By: #### 2 777-1, , ####[facility] LABCLIA [id number] [place] [address] Sodium [Moles/Vol] 141 mmol/L Normal 136-144 [facility] Comment on above: Order Comment: Speci men Type: BLOOD SPECIMENOrdering Facility: [facility] Address: [address] [place] [id number] Performed By: #### 2 777-1, , ####[facility] LABCLIA [id number] [place] [address] Urea nitrogen [Mass/Vol] 7 mg/dL Normal 7-21 [facility] Comment on above: Order Comment: Speci men Type: BLOOD SPECIMENOrdering Facility: [facility] Address: [address] [place] [id number] Performed By: #### 2 777-1, , ####[facility] LABCLIA [id number] [place] [address] IgA SerPl-mCncon 07-31-2023 IgA [Mass/Vol] 123 mg/dL Normal 70-400 [facility] Comment on above: Order Comment: Speci men Type: BLOOD SPECIMENOrdering Facility: [facility] Address: [address] [id number] Performed By: #### 2 458-8 ####[facility] LABCLIA [id number] [address] [address] [place] Magnesium SerPl-mCncon 07-31 Magnesium [Mass/Vol] 2.1 mg/dL Normal 1.7-2.3 [facility] [place] Comment on above: Order Comment: Speci men Type: BLOOD SPECIMENOrdering Facility: [facility] Address: [address] [place] [address] Performed By: #### 2 777-1, , ####[facility] LABCLIA [id number] [place] [address] Methylmalonate SerPl-sCncon 07-31-2023 Methylmalonate [Moles/Vol] 0.17 umol/L Normal <=0.40 [facility] Comment on above: Order Comment: Speci men Type: BLOOD SPECIMENOrdering Facility: [facility] Address: [address] [place] [address] Result Comment: This test was developed and its performance characteristics determined by [facility]'s Jey Arroyo [facility] Pathology and Laboratory Medicine [place] ([facility]). It has not been cleared or approved by the FDA. [facility] is regulated under CLIA as qualified to perform high-complexity testing. This test is used for clinical purposes. It should not be regarded as investigational or for research. Performed By: #### 1 3964-2 ####[facility] LABCLIA [id number] [place] [address] [place] Phosphate SerPl-mCncon 07-31 Phosphate [Mass/Vol] 3.6 mg/dL Normal 2.7-4.8 [facility] [place] Comment on above: Order Comment: Speci men Type: BLOOD SPECIMENOrdering Facility: [facility] Address: [address] [place] [address] Performed By: #### 2 777-1, 66130-8, 35649-9 ####[facility] LABCLIA [id number] [place] [address] VITAMIN B6/PYRIDOXINon 07-31 VITAMIN B6 17.5 nmol/L Low 20.0-125.0 [facility] Comment on above: Order Comment: Speci men Type: BLOOD SPECIMENOrdering Facility: [facility] Address: [address] [place] [address] Result Comment: INTE RPRETIVE INFORMATION: Vitamin B6 (Pyridoxal 5-Phosphate)Pyridoxal 5'-phosphate measured in a specimen collected followingan 8-hour or overnight fast accurately indicates vitamin R0idtokuvjjsh status. Non-fasting specimen concentration reflectsrecent vitamin intake.This test was developed and its performance characteristicsdetermined by [facility]. It has not been cleared orapproved by the [place] Food and Drug Administration. This test wasperformed in a CLIA certified laboratory and is intended forclinical purposes.Performed By: [facility] [place] [id number] Director: Leslie Luna MD, PhDCLIA Number: [id number] Performed By: #### V ITB6 ####[facility] [id number] [place] [address] Vit A SerPl-mCncon 3 Retinol [Mass/Vol] 0.27 mg/L Low 0.30-1.20 [facility] Comment on above: Order Comment: Speci men Type: BLOOD SPECIMENOrdering Facility: [facility] Address: [address] [place] [address] Result Comment: This test was developed and its performance characteristics determined by [facility] Pathology and Laboratory Medicine [place] ([facility]). It has not been cleared or approved by the FDA. [facility] is regulated under CLIA as qualified to perform high-complexity testing. This test is used for clinical purposes. It should not be regarded as investigational or for research. Performed By: #### 2 923-1, 1823-4 ####[facility] LABCLIA [id number] [place] [address] [place] Zinc SerPl-mCncon 07-31-2023 Zinc [Mass/Vol] 68 ug/dL Normal 60-120 [facility] Comment on above: Order Comment: Speci men Type: BLOOD SPECIMENOrdering Facility: [facility] Address: [address] [place] [address] Result Comment: This test was developed and its performance characteristics determined by [facility] Pathology and Laboratory Medicine [place] ([facility]). It has not been cleared or approved by the FDA. [facility] is regulated under CLIA as qualified to perform high-complexity testing. This test is used for clinical purposes. It should not be regarded as investigational or for research. Performed By: #### 5 763-8, COPPER ####[facility] LABCLIA [id number] [place] [address] [place] CNPNon 07-30-[address] [facility] CNPNon 07-29-[address] [facility] CNPTOUTREACHon 07-29-[address] [facility] CNCNPATEDon 07-27-[address] [facility] CNOVon 07-27-[address] [facility] XR ABDOMEN 1 VIEWon 07-20-20 XR ABDOMEN 1 VIEW FINDINGS: Surgical clips left upper quadrant, and gallbladder fossa. Gas and stool in colon. No focal or diffuse small bowel dilatation. No mass effect. No abnormal calcification. Osseous structures intact. IMPRESSION: Impression: Nonspecific abdomen. ELECTRONICALLY SIGNED BY: Johann Bryant MD Normal Not Available CNPNon 07-14-[address] [facility] A-Tocopherol Vit E SerPl-mCn con 07-13-2023 Alpha tocopherol [Mass/Vol] 10.8 mg/L Normal 6.0-23.0 [facility] Comment on above: Order Comment: Speci men Type: BLOOD SPECIMENOrdering Facility: [facility] Address: [address] [place] [address] Performed By: #### 1 823-4, 292-1 ####[facility] LABIA [id number] [place] [address] [place] Alpha tocopherol [Mass/Vol]o n 07-13-2023 Beta+gamma tocopherol [Mass/Vol] 1.9 mg/L Normal 0.3-3.2 [facility] Comment on above: Order Comment: Speci [facility] Type: BLOOD SPECIMENOrdering Facility: [facility] Address: [address] [place] [address] Result Comment: This test was developed and its performance characteristics determined by [facility]'s Jey JZarina [facility] Pathology and Laboratory Medicine [place] (-[facility]). It has not been cleared or approved by the FDA. [facility] is regulated under CLIA as qualified to perform high-complexity testing. This test is used for clinical purposes. It should not be regarded as investigational or for research. Performed By: #### 1 823-4, 2923-1 ####[facility] LABCLIA [id number] [place] [address] [place] C-REACTIVE PROTEIN (CRP)on 1 CRP [Mass/Vol] <0.9 mg/dL [facility] CBC W Auto Differential pane l (Bld)on 07-13-2023 Basophils (Bld) [#/Vol] 0.06 10*3/uL Normal <0.11 [facility] Comment on above: Order Comment: Speci men Type: BLOOD SPECIMENOrdering Facility: [facility] Address: [address] [place] [address] Performed By: #### 5 7021-8 ####[facility] LABCLIA [id number] [place] [address] [place] Basophils/100 WBC (Bld) 1.2 % Normal [facility] Comment on above: Order Comment: Speci men Type: BLOOD SPECIMENOrdering Facility: [facility] Address: [address] [place] [address] Performed By: #### 5 7021-8 ####[facility] LABCLIA [id number] [place] [address] [place] Differential cell count method Nom (Bld) Auto Normal [facility] Comment on above: Order Comment: Speci men Type: BLOOD SPECIMENOrdering Facility: [facility] Address: [address] [place] [address] Performed By: #### 5 7021-8 ####[facility] LABCLIA [id number] [place] [address] [place] Eosinophils (Bld) [#/Vol] 0.07 10*3/uL Normal <0.46 [facility] Comment on above: Order Comment: Speci men Type: BLOOD SPECIMENOrdering Facility: [facility] Address: [address] [place] [address] Performed By: #### 5 7021-8 ####[facility] LABCLIA [id number] [place] [address] [place] Eosinophils/100 WBC (Bld) 1.4 % Normal [facility] Comment on above: Order Comment: Speci men Type: BLOOD SPECIMENOrdering Facility: [facility] Address: [address] [place] [address] Performed By: #### 5 7021-8 ####[facility] LABCLIA [id number] [place] [address] [place] Erythrocyte distribution width (RBC) [Ratio] 14.1 % Normal 11.5-15.0 [facility] Comment on above: Order Comment: Speci men Type: BLOOD SPECIMENOrdering Facility: [facility] Address: [address] [place] [address] Performed By: #### 5 7021-8 ####[facility] LABCLIA [id number] [place] [address] [place] Hematocrit (Bld) [Volume fraction] 41.1 % Normal 36.0-46.0 [facility] Comment on above: Order Comment: Speci men Type: BLOOD SPECIMENOrdering Facility: [facility] Address: [address] [place] [address] Performed By: #### 5 7021-8 ####[facility] LABCLIA [id number] [place] [address] [place] Hemoglobin (Bld) [Mass/Vol] 13.2 g/dL Normal 11.5-15.5 [facility] Comment on above: Order Comment: Speci men Type: BLOOD SPECIMENOrdering Facility: [facility] Address: [address] [place] [address] Performed By: #### 5 7021-8 ####[facility] LABCLIA [id number] [place] [address] [place] Immature granulocytes (Bld) [#/Vol] 10*3/uL Normal <0.10 [facility] Comment on above: Order Comment: Speci men Type: BLOOD SPECIMENOrdering Facility: [facility] Address: [address] [place] [address] Performed By: #### 5 7021-8 ####[facility] LABCLIA [id number] [place] [address] [place] Immature granulocytes/100 WBC (Bld) 0.2 % Normal [facility] Comment on above: Order Comment: Speci men Type: BLOOD SPECIMENOrdering Facility: [facility] Address: [address] [place] [address] Performed By: #### 5 7021-8 ####[facility] LABCLIA [id number] [place] [address] [place] Lymphocytes (Bld) [#/Vol] 1.75 10*3/uL Normal 1.00-4.00 [facility] Comment on above: Order Comment: Speci men Type: BLOOD SPECIMENOrdering Facility: [facility] Address: [address] [place] [address] Performed By: #### 5 7021-8 ####[facility] LABIA [id number] [place] [address] [place] Lymphocytes/100 WBC (Bld) 36.0 % Normal [facility] Comment on above: Order Comment: Speci men Type: BLOOD SPECIMENOrdering Facility: [facility] Address: [address] [place] [address] Performed By: #### 5 7021-8 ####[facility] LABIA [id number] [place] [address] [place] MCH (RBC) [Entitic mass] 29.4 pg Normal 26.0-34.0 [facility] Comment on above: Order Comment: Speci men Type: BLOOD SPECIMENOrdering Facility: [facility] Address: [address] [place] [address] Performed By: #### 5 7021-8 ####[facility] LABIA [id number] [place] [address] [place] MCHC (RBC) [Mass/Vol] 32.1 g/dL Normal 30.5-36.0 [facility] Comment on above: Order Comment: Speci men Type: BLOOD SPECIMENOrdering Facility: [facility] Address: [address] [place] [address] Performed By: #### 5 7021-8 ####[facility] LABCLIA [id number] [place] [address] [place] MCV (RBC) [Entitic vol] 91.5 fL Normal 80.0-100.0 [facility] Comment on above: Order Comment: Speci men Type: BLOOD SPECIMENOrdering Facility: [facility] Address: [address] [place] [address] Performed By: #### 5 7021-8 ####[facility] LABCLIA [id number] [place] [address] [place] Monocytes (Bld) [#/Vol] 0.41 10*3/uL Normal <0.87 [facility] Comment on above: Order Comment: Speci men Type: BLOOD SPECIMENOrdering Facility: [facility] Address: [address] [place] [address] Performed By: #### 5 7021-8 ####[facility] LABCLIA [id number] [place] [address] [place] Monocytes/100 WBC (Bld) 8.4 % Normal [facility] Comment on above: Order Comment: Speci men Type: BLOOD SPECIMENOrdering Facility: [facility] Address: [address] [place] [address] Performed By: #### 5 7021-8 ####[facility] LABCLIA [id number] [place] [address] [place] Neutrophils (Bld) [#/Vol] 2.56 10*3/uL Normal 1.45-7.50 [facility] Comment on above: Order Comment: Speci men Type: BLOOD SPECIMENOrdering Facility: [facility] Address: [address] [place] [address] Performed By: #### 5 7021-8 ####[facility] LABCLIA [id number] [place] [address] [place] Neutrophils/100 WBC (Bld) 52.8 % Normal [facility] Comment on above: Order Comment: Speci men Type: BLOOD SPECIMENOrdering Facility: [facility] Address: [address] [place] [address] Performed By: #### 5 7021-8 ####[facility] LABIA [id number] [place] [address] [place] Nucleated RBC (Bld) [#/Vol] 10*3/uL Normal <0.01 [facility] Comment on above: Order Comment: Speci men Type: BLOOD SPECIMENOrdering Facility: [facility] Address: [address] [place] [address] Performed By: #### 5 7021-8 ####[facility] LABIA [id number] [place] [address] [place] Nucleated RBC/100 WBC (Bld) [Ratio] 0.0 /[address] [facility] Comment on above: Order Comment: Speci men Type: BLOOD SPECIMENOrdering Facility: [facility] Address: [address] [place] [address] Performed By: #### 5 7021-8 ####[facility] LABIA [id number] [place] [address] [place] Platelet mean volume (Bld) [Entitic vol] 9.8 fL Normal 9.0-12.7 [facility] Comment on above: Order Comment: Speci men Type: BLOOD SPECIMENOrdering Facility: [facility] Address: [address] [place] [address] Performed By: #### 5 7021-8 ####[facility] LABIA [id number] [place] [address] [place] Platelets (Bld) [#/Vol] 269 10*3/uL Normal 150-400 [facility] Comment on above: Order Comment: Speci men Type: BLOOD SPECIMENOrdering Facility: [facility] Address: [place] [address] Performed By: #### 5 7021-8 ####[facility] LABCLIA [id number] [place] [address] [place] RBC (Bld) [#/Vol] 4.49 10*6/uL Normal 3.90-5.20 [facility] Comment on above: Order Comment: Speci men Type: BLOOD SPECIMENOrdering Facility: [facility] Address: [address] [place] [address] Performed By: #### 5 7021-8 ####[facility] LABCLIA [id number] [place] [address] [place] WBC (Bld) [#/Vol] 4.86 10*3/uL Normal 3.70-11.00 [facility] Comment on above: Order Comment: Speci men Type: BLOOD SPECIMENOrdering Facility: [facility] Address: [address] [place] [address] Performed By: #### 5 7021-8 ####[facility] LABCLIA [id number] [place] [address] [place] Basophils (Bld) [#/Vol] 0.06 10*3/uL <0.11 k/uL [facility] Basophils/100 WBC (Bld) 1.2 % [facility] Differential cell count method Nom (Bld) Auto [facility] Eosinophils (Bld) [#/Vol] 0.07 10*3/uL <0.46 k/uL [facility] Eosinophils/100 WBC (Bld) 1.4 % [facility] Erythrocyte distribution width (RBC) [Ratio] 14.1 % 11.5 - 15.0 % [facility] Hematocrit (Bld) [Volume fraction] 41.1 % 36.0 - 46.0 % [facility] Hemoglobin (Bld) [Mass/Vol] 13.2 g/dL 11.5 - 15.5 g/dL [facility] Immature granulocytes (Bld) [#/Vol] <0.10 k/uL [facility] Immature granulocytes/100 WBC (Bld) 0.2 % [facility] Lymphocytes (Bld) [#/Vol] 1.75 10*3/uL 1.00 - 4.00 k/uL [facility] Lymphocytes/100 WBC (Bld) 36.0 % [facility] MCH (RBC) [Entitic mass] 29.4 pg 26.0 - 34.0 pg [facility] MCHC (RBC) [Mass/Vol] 32.1 g/dL 30.5 - 36.0 g/dL [facility] MCV (RBC) [Entitic vol] 91.5 fL 80.0 - 100.0 fL [facility] Monocytes (Bld) [#/Vol] 0.41 10*3/uL <0.87 k/uL [facility] Monocytes/100 WBC (Bld) 8.4 % [facility] Neutrophils (Bld) [#/Vol] 2.56 10*3/uL 1.45 - 7.50 k/uL [facility] Neutrophils/100 WBC (Bld) 52.8 % [facility] Nucleated RBC (Bld) [#/Vol] <0.01 k/uL [facility] Nucleated RBC/100 WBC (Bld) [Ratio] 0.0 /100 WBC [facility] Platelet mean volume (Bld) [Entitic vol] 9.8 fL 9.0 - 12.7 fL [facility] Platelets (Bld) [#/Vol] 269 10*3/uL 150 - 400 k/uL [facility] RBC (Bld) [#/Vol] 4.49 10*6/uL 3.90 - 5.20 m/uL [facility] WBC (Bld) [#/Vol] 4.86 10*3/uL 3.70 - 11.00 k/uL [facility] CNOVon 07-13-[address] [facility] COPPER BLOODon 07-13-2023 Copper [Mass/Vol] 98 ug/dL Normal 80-155 [facility] Comment on above: Order Comment: Speci men Type: BLOOD SPECIMENOrdering Facility: [facility] Address: [address] [place], [place] [address] Result Comment: This test was developed and its performance characteristics determined by [facility]'s Jey Arroyo [facility] Pathology and Laboratory Medicine [place] ([facility]). It has not been cleared or approved by the FDA. [facility] is regulated under CLIA as qualified to perform high-complexity testing. This test is used for clinical purposes. It should not be regarded as investigational or for research. Performed By: #### 5 763-8, COPPER ####[facility] LABIA [id number] [place] [address] [place] CRP SerPl-mCncon 07-13-2023 CRP [Mass/Vol] mg/L Normal <0.9 [facility] Comment on above: Order Comment: Speci men Type: BLOOD SPECIMENOrdering Facility: [facility] Address: [address] [place] [address] Performed By: #### 1 988-5, 75678-6, 79610-8 ####[facility] [id number] [place] [address] [place] Comprehensive metabolic 2000 panelon 07-13-2023 Albumin [Mass/Vol] 4.2 g/dL 3.9 - 4.9 g/dL [facility] ALP [Catalytic activity/Vol] 129 U/L High 34 - 123 U/L [facility] ALT [Catalytic activity/Vol] 42 U/L High 7 - 38 U/L [facility] Anion gap [Moles/Vol] 11 mmol/L 9 - 18 mmol/L [facility] AST [Catalytic activity/Vol] 30 U/L 13 - 35 U/L [facility] Bilirubin [Mass/Vol] 0.4 mg/dL 0.2 - 1 .3 mg/dL [facility] Calcium [Mass/Vol] 9.2 mg/dL 8.5 - 10. 2 mg/dL [facility] Chloride [Moles/Vol] 104 mmol/L 97 - 10 5 mmol/L [facility] CO2 [Moles/Vol] 26 mmol/L 22 - 30 mmol/L [facility] Creatinine [Mass/Vol] 0.58 mg/dL 0.58 - 0.96 mg/dL [facility] Estimated Glomerular Filtration Rate 113 mL/min/1.73m >=60 mL/min/1.7 3m [facility] Glucose [Mass/Vol] 61 mg/dL Low 74 - 99 mg/dL [facility] Potassium [Moles/Vol] 3.8 mmol/L 3.7 - 5.1 mmol/L [facility] Protein [Mass/Vol] 6.8 g/dL 6.3 - 8.0 g/dL [facility] Sodium [Moles/Vol] 141 mmol/L 136 - 144 mmol/L [facility] Urea nitrogen [Mass/Vol] 11 mg/dL 7 - 21 mg/dL [facility] Albumin [Mass/Vol] 4.2 g/dL Normal 3.9-4.9 [facility] Comment on above: Order Comment: Speci men Type: BLOOD SPECIMENOrdering Facility: [facility] Address: [address] [place] [address] Performed By: #### 1 988-5, , ####[facility] LABCLIA [id number] [place] [address] [place] ALP [Catalytic activity/Vol] 129 U/L High 34-123 [facility] Comment on above: Order Comment: Speci men Type: BLOOD SPECIMENOrdering Facility: [facility] Address: [address] [place] [address] Performed By: #### 1 988-5, , ####[facility] LABCLIA [id number] [place] [address] [place] ALT [Catalytic activity/Vol] 42 U/L High 7-38 [facility] Comment on above: Order Comment: Speci men Type: BLOOD SPECIMENOrdering Facility: [facility] Address: [address] [place] [address] Performed By: #### 1 988-5, 88772-1, ####[facility] LABCLIA [id number] [place] [address] [place] Anion gap [Moles/Vol] 11 mmol/L Normal 9-18 [facility] Comment on above: Order Comment: Speci men Type: BLOOD SPECIMENOrdering Facility: [facility] Address: [address] [place] [address] Performed By: #### 1 988-5, , ####[facility] LABCLIA [id number] [place] [address] [place] AST [Catalytic activity/Vol] 30 U/L Normal 13-35 [facility] Comment on above: Order Comment: Speci men Type: BLOOD SPECIMENOrdering Facility: [facility] Address: [address] [place] [address] Performed By: #### 1 988-5, , ####[facility] LABCLIA [id number] [place] [address] [place] Bilirubin [Mass/Vol] 0.4 mg/dL Normal 0.2-1.3 [facility] Comment on above: Order Comment: Speci men Type: BLOOD SPECIMENOrdering Facility: [facility] Address: [address] [place] [address] Performed By: #### 1 988-5, , ####[facility] LABCLIA [id number] [place] [address] [place] Calcium [Mass/Vol] 9.2 mg/dL Normal 8.5-10.2 [facility] Comment on above: Order Comment: Speci men Type: BLOOD SPECIMENOrdering Facility: [facility] Address: [address] [place] [address] Performed By: #### 1 988-5, , ####[facility] LABCLIA [id number] [address] [address] [place] Chloride [Moles/Vol] 104 mmol/L Normal 97-105 [facility] [place] Comment on above: Order Comment: Speci men Type: BLOOD SPECIMENOrdering Facility: [facility] Address: [address] [place] [address] Performed By: #### 1 988-5, , ####[facility] LABCLIA [id number] [address] [address] [place] CO2 [Moles/Vol] 26 mmol/L Normal 22-30 [facility] Comment on above: Order Comment: Speci men Type: BLOOD SPECIMENOrdering Facility: [facility] Address: [address] [place] [address] Performed By: #### 1 988-5, , ####[facility] LABCLIA [id number] [place] [address] [place] Creatinine [Mass/Vol] 0.58 mg/dL Normal 0.58-0.96 [facility] Comment on above: Order Comment: Speci men Type: BLOOD SPECIMENOrdering Facility: [facility] Address: [address] [place] [address] Performed By: #### 1 988-5, , ####[facility] LABCLIA [id number] [place] [address] [place] Creatinine and Glomerular filtration rate.predicted panel (S/P/Bld) 113 mL/min/1.73m??? Normal >=60 [facility] Comment on above: Order Comment: Speci men Type: BLOOD SPECIMENOrdering Facility: [facility] Address: [address] [place] [address] Result Comment: Randy mated Glomerular Filtration Rate (eGFR) is calculated using the 2020 CKD-EPI creatinine equation. This equation utilizes serum creatinine, sex, and age as parameters. The creatinine assay has traceable calibration to isotope dilution-mass spectrometry. Refer to KDIGO guidelines for clinical interpretation. In patients with unstable renal function, e.g. those with acute kidney injury, the eGFR may not accurately reflect actual GFR. Performed By: #### 1 988-5, 25629-1, ####[facility] LABCLIA [id number] [place] [address] [place] Glucose [Mass/Vol] 61 mg/dL Low 74-99 [facility] Comment on above: Order Comment: Speci men Type: BLOOD SPECIMENOrdering Facility: [facility] Address: [address] [place] [address] Result Comment: The [place] Diabetes [employer] (ADA) provides guidance for cutoff values for fasting glucose and random glucose. The ADA defines fasting as no caloric intake for at least 8 hours. Fasting plasma glucose results between 100 to 125 mg/dL indicate increased risk for diabetes (prediabetes).Fasting plasma glucose results greater than or equal to 126 mg/dL meet the criteria for diagnosis of diabetes. In the absence of unequivocal hyperglycemia, results should be confirmed by repeat testing. In a patient with classic symptoms of hyperglycemia or hyperglycemic crisis, random plasma glucose results greater than or equal to 200 mg/dL meet the criteria for diagnosis of diabetes.Reference: Standards of Medical Care in Diabetes 2016, [place] [employer]. Diabetes Care. 2016.39(Suppl 1). Performed By: #### 1 988-5, 87901-9, ####[facility] LABIA [id number] [place] [address] [place] Potassium [Moles/Vol] 3.8 mmol/L Normal 3.7-5.1 [facility] Comment on above: Order Comment: Speci men Type: BLOOD SPECIMENOrdering Facility: [facility] Address: [address] [place] [address] Performed By: #### 1 988-5, 24056-6, ####[facility] LABIA [id number] [place] [address] [place] Protein [Mass/Vol] 6.8 g/dL Normal 6.3-8.0 [facility] Comment on above: Order Comment: Speci men Type: BLOOD SPECIMENOrdering Facility: [facility] Address: [address] [place] [address] Performed By: #### 1 988-5, 71518-2, ####[facility] LABCLIA [id number] [address] [address] [place] Sodium [Moles/Vol] 141 mmol/L Normal 136-144 [facility] Comment on above: Order Comment: Speci men Type: BLOOD SPECIMENOrdering Facility: [facility] Address: [address] [place] [address] Performed By: #### 1 988-5, , ####[facility] LABCLIA [id number] [place] [address] [place] Urea nitrogen [Mass/Vol] 11 mg/dL Normal 7-21 [facility] Comment on above: Order Comment: Speci men Type: BLOOD SPECIMENOrdering Facility: [facility] Address: [address] [place] [id number] Performed By: #### 1 988-5, , ####[facility] LABCLIA [id number] [place] [id number] [place] MAGNESIUM BLDon 07-13-2023 Magnesium [Mass/Vol] 2.1 mg/dL 1.7 - 2 .3 mg/dL [facility] Magnesium SerPl-mCncon 07-13 Magnesium [Mass/Vol] 2.1 mg/dL Normal 1.7-2.3 [facility] [place] Comment on above: Order Comment: Speci men Type: BLOOD SPECIMENOrdering Facility: [facility] Address: [address] [place] [address] Performed By: #### 1 988-5, , ####[facility] LABCLIA [id number] [place] [id number] [place] Methylmalonate SerPl-sCncon 07-13-2023 Methylmalonate [Moles/Vol] 0.25 umol/L Normal <=0.40 [facility] Comment on above: Order Comment: Speci men Type: BLOOD SPECIMENOrdering Facility: [facility] Address: [address] [place] [address] Result Comment: This test was developed and its performance characteristics determined by [facility]'s Jey Cruz [facility] Pathology and Laboratory Medicine [place] ([facility]). It has not been cleared or approved by the FDA. [facility] is regulated under CLIA as qualified to perform high-complexity testing. This test is used for clinical purposes. It should not be regarded as investigational or for research. Performed By: #### 1 3964-2 ####[facility] LABCLIA [id number] [place] [address] [place] Phosphate SerPl-mCncon 07-13 Phosphate [Mass/Vol] 3.7 mg/dL Normal 2.7-4.8 [facility] [place] Comment on above: Order Comment: Speci [facility] Type: BLOOD SPECIMENOrdering Facility: [facility] Address: [address] [place] [address] Performed By: #### 2 777-1 ####[facility] LABCLIA [id number] [place] [address] [place] VITAMIN B6/PYRIDOXINon 07-13 VITAMIN B6 22.7 nmol/L Normal 20.0-125.0 [facility] Comment on above: Order Comment: Speci donnie Type: BLOOD SPECIMENOrdering Facility: [facility] Address: [address] [place] [address] Result Comment: INTE RPRETIVE INFORMATION: Vitamin B6 (Pyridoxal 5-Phosphate)Pyridoxal 5'-phosphate measured in a specimen collected followingan 8-hour or overnight fast accurately indicates vitamin N6rljrwsdwppj status. Non-fasting specimen concentration reflectsrecent vitamin intake.This test was developed and its performance characteristicsdetermined by [facility]. It has not been cleared orapproved by the [place] Food and Drug Administration. This test wasperformed in a CLIA certified laboratory and is intended forclinical purposes.Performed By: [facility] [place] [id number] Director: Leslie Luna MD, PhDCLIA Number: [id number] Performed By: #### V ITB6 ####[facility] [id number] [place] [address] Vit A SerPl-mCncon 3 Retinol [Mass/Vol] 0.37 mg/L Normal 0.30-1.20 [facility] Comment on above: Order Comment: Speci men Type: BLOOD SPECIMENOrdering Facility: [facility] Address: [address] [place] [address] Result Comment: This test was developed and its performance characteristics determined by [facility] Pathology and Laboratory Medicine [place] ([facility]). It has not been cleared or approved by the FDA. [facility] is regulated under CLIA as qualified to perform high-complexity testing. This test is used for clinical purposes. It should not be regarded as investigational or for research. Performed By: #### 1 823-4, 2923-1 ####[facility] LABCLIA [id number] [place] [address] [place] Zinc SerPl-mCncon 07-13-2023 Zinc [Mass/Vol] 67 ug/dL Normal 60-120 [facility] Comment on above: Order Comment: Speci men Type: BLOOD SPECIMENOrdering Facility: [facility] Address: [address] [place] [address] Result Comment: This test was developed and its performance characteristics determined by [facility] Pathology and Laboratory Medicine [place] ([facility]). It has not been cleared or approved by the FDA. [facility] is regulated under CLIA as qualified to perform high-complexity testing. This test is used for clinical purposes. It should not be regarded as investigational or for research. Performed By: #### 5 763-8, COPPER ####[facility] LABCLIA [id number] [place] [address] [place] CNPNon 07-03-[address] [facility] MRI PANC/JIMBO WO/W IVCONon MRI PANC/JIMBO WO/W IVCON Normal [facility] CNPNon 07-01-[address] [facility] 25(OH)D3 SerPl-mCncon 2022 25-hydroxyvitamin D3 [Mass/Vol] 19.6 ng/mL Low 31.0-80.0 [facility] Comment on above: Order Comment: Speci men Type: BLOOD SPECIMENOrdering Facility: [facility] Address: [address] [place] [address] Result Comment: Clas sification of 25 [place] Vitamin D status:Deficiency/Insufficiency: < or = 30 ng/ml.Sufficiency/Optimal Levels: 31-80 ng/mLToxicity: > 100 ng/mL.Test performed by chemiluminescent immunoassay. Performed By: #### 1 989-3 ####[facility] LABCLIA [id number] [place] [address] [place] ANES POSTPROC EVALon 023 ANES POSTPROC EVAL Normal [facility] ANES PRE-OPon 06-26-2023 ANES PRE-OP Normal [facility] CBC W Auto Differential pane l (Bld)on 06-26-2023 Basophils (Bld) [#/Vol] 0.08 10*3/uL Normal <0.11 [facility] Comment on above: Order Comment: Speci men Type: BLOOD SPECIMENOrdering Facility: [facility] Address: [address] [place] [address] Performed By: #### 5 7021-8, 52304-4 ####[facility] LABCLIA [id number] [place] [address] Basophils/100 WBC (Bld) 1.2 % Normal [facility] Comment on above: Order Comment: Speci men Type: BLOOD SPECIMENOrdering Facility: [facility] Address: [address] [place] [address] Performed By: #### 5 7021-8, 84284-0 ####[facility] LABCLIA [id number] [place] [address] Differential cell count method Nom (Bld) Auto Normal [facility] Comment on above: Order Comment: Speci men Type: BLOOD SPECIMENOrdering Facility: [facility] Address: [address] [place] [address] Performed By: #### 5 7021-8, 27028-2 ####[facility] LABCLIA [id number] [place] [address] Eosinophils (Bld) [#/Vol] 0.08 10*3/uL Normal <0.46 [facility] Comment on above: Order Comment: Speci men Type: BLOOD SPECIMENOrdering Facility: [facility] Address: [address] [place] [address] Performed By: #### 5 7021-8, 59972-6 ####[facility] LABCLIA [id number] [place] [address] Eosinophils/100 WBC (Bld) 1.2 % Normal [facility] Comment on above: Order Comment: Speci men Type: BLOOD SPECIMENOrdering Facility: [facility] Address: [address] [place] [address] Performed By: #### 5 7021-8, 02164-0 ####[facility] LABCLIA [id number] [place] [address] Erythrocyte distribution width (RBC) [Ratio] 13.9 % Normal 11.5-15.0 [facility] Comment on above: Order Comment: Speci men Type: BLOOD SPECIMENOrdering Facility: [facility] Address: [address] [place] [address] Performed By: #### 5 7021-8, 57715-6 ####[facility] LABCLIA [id number] [place] [address] Hematocrit (Bld) [Volume fraction] 41.0 % Normal 36.0-46.0 [facility] Comment on above: Order Comment: Speci men Type: BLOOD SPECIMENOrdering Facility: [facility] Address: [address] [place] [address] Performed By: #### 5 7021-8, 58259-6 ####[facility] LABCLIA [id number] [place] [address] Hemoglobin (Bld) [Mass/Vol] 13.1 g/dL Normal 11.5-15.5 [facility] Comment on above: Order Comment: Speci men Type: BLOOD SPECIMENOrdering Facility: [facility] Address: [address] [place] [address] Performed By: #### 5 7021-8, 53315-0 ####[facility] LABCLIA [id number] [place] [address] Immature granulocytes (Bld) [#/Vol] 10*3/uL Normal <0.10 [facility] Comment on above: Order Comment: Speci men Type: BLOOD SPECIMENOrdering Facility: [facility] Address: [address] [place] [address] Performed By: #### 5 7021-8, 50028-9 ####[facility] LABCLIA [id number] [place] [address] Immature granulocytes/100 WBC (Bld) 0.3 % Normal [facility] Comment on above: Order Comment: Speci men Type: BLOOD SPECIMENOrdering Facility: [facility] Address: [address] [place] [address] Performed By: #### 5 7021-8, 57718-3 ####[facility] LABCLIA [id number] [place] [address] Lymphocytes (Bld) [#/Vol] 2.33 10*3/uL Normal 1.00-4.00 [facility] Comment on above: Order Comment: Speci men Type: BLOOD SPECIMENOrdering Facility: [facility] Address: [address] [place] [address] Performed By: #### 5 7021-8, 10134-0 ####[facility] LABCLIA [id number] [place] [address] Lymphocytes/100 WBC (Bld) 33.9 % Normal [facility] Comment on above: Order Comment: Speci men Type: BLOOD SPECIMENOrdering Facility: [facility] Address: [address] [place] [address] Performed By: #### 5 7021-8, 90718-6 ####[facility] LABIA [id number] [place] [address] MCH (RBC) [Entitic mass] 29.0 pg Normal 26.0-34.0 [facility] Comment on above: Order Comment: Speci men Type: BLOOD SPECIMENOrdering Facility: [facility] Address: [address] [place] [address] Performed By: #### 5 7021-8, 84795-8 ####[facility] LABIA [id number] [place] [address] MCHC (RBC) [Mass/Vol] 32.0 g/dL Normal 30.5-36.0 [facility] Comment on above: Order Comment: Speci men Type: BLOOD SPECIMENOrdering Facility: [facility] Address: [address] [place] [address] Performed By: #### 5 7021-8, 89134-8 ####[facility] LABIA [id number] [place] [address] MCV (RBC) [Entitic vol] 90.7 fL Normal 80.0-100.0 [facility] Comment on above: Order Comment: Speci men Type: BLOOD SPECIMENOrdering Facility: [facility] Address: [address] [place] [address] Performed By: #### 5 7021-8, 80194-3 ####[facility] LABIA [id number] [place] [address] Monocytes (Bld) [#/Vol] 0.51 10*3/uL Normal <0.87 [facility] Comment on above: Order Comment: Speci men Type: BLOOD SPECIMENOrdering Facility: [facility] Address: [address] [place] [address] Performed By: #### 5 7021-8, 97967-1 ####[facility] LABCLIA [id number] [place] [address] Monocytes/100 WBC (Bld) 7.4 % Normal [facility] Comment on above: Order Comment: Speci men Type: BLOOD SPECIMENOrdering Facility: [facility] Address: [address] [place] [address] Performed By: #### 5 7021-8, 31541-3 ####[facility] LABCLIA [id number] [place] [address] Neutrophils (Bld) [#/Vol] 3.86 10*3/uL Normal 1.45-7.50 [facility] Comment on above: Order Comment: Speci men Type: BLOOD SPECIMENOrdering Facility: [facility] Address: [address] [place] [address] Performed By: #### 5 7021-8, 68540-0 ####[facility] LABCLIA [id number] [place] [address] Neutrophils/100 WBC (Bld) 56.0 % Normal [facility] Comment on above: Order Comment: Speci men Type: BLOOD SPECIMENOrdering Facility: [facility] Address: [address] [place] [address] Performed By: #### 5 7021-8, 84104-6 ####[facility] LABCLIA [id number] [place] [address] Nucleated RBC (Bld) [#/Vol] 10*3/uL Normal <0.01 [facility] Comment on above: Order Comment: Speci men Type: BLOOD SPECIMENOrdering Facility: [facility] Address: [address] [place] [address] Performed By: #### 5 7021-8, 42671-8 ####[facility] LABCLIA [id number] [place] [address] Nucleated RBC/100 WBC (Bld) [Ratio] 0.0 /[address] [facility] Comment on above: Order Comment: Speci men Type: BLOOD SPECIMENOrdering Facility: [facility] Address: [address] [place] [address] Performed By: #### 5 7021-8, 54508-5 ####[facility] LABCLIA [id number] [place] [address] Platelet mean volume (Bld) [Entitic vol] 9.6 fL Normal 9.0-12.7 [facility] Comment on above: Order Comment: Speci men Type: BLOOD SPECIMENOrdering Facility: [facility] Address: [address] [place] [address] Performed By: #### 5 7021-8, 28491-8 ####[facility] LABIA [id number] [place] [address] Platelets (Bld) [#/Vol] 271 10*3/uL Normal 150-400 [facility] Comment on above: Order Comment: Speci men Type: BLOOD SPECIMENOrdering Facility: [facility] Address: [address] [place] [address] Performed By: #### 5 7021-8, 80125-0 ####[facility] LABCLIA [id number] [place] [address] RBC (Bld) [#/Vol] 4.52 10*6/uL Normal 3.90-5.20 [facility] Comment on above: Order Comment: Speci men Type: BLOOD SPECIMENOrdering Facility: [facility] Address: [address] [place] [address] Performed By: #### 5 7021-8, 20837-1 ####[facility] LABCLIA [id number] [place] [address] WBC (Bld) [#/Vol] 6.88 10*3/uL Normal 3.70-11.00 [facility] Comment on above: Order Comment: Speci men Type: BLOOD SPECIMENOrdering Facility: [facility] Address: [address] [place] [address] Performed By: #### 5 7021-8, 39333-8 ####[facility] LABCLIA [id number] [place] [address] CRP SerPl-nc 06-26-2023 CRP [Mass/Vol] mg/L Normal <0.9 [facility] Comment on above: Order Comment: Speci men Type: BLOOD SPECIMENOrdering Facility: [facility] Address: [address] [place] [address] Performed By: #### 1 988-5, 71284-2, 2276-4, 2132-9 ####[facility] LABCLIA [id number] [address] [facility] Comprehensive metabolic 2000 panelon 06-26-2023 Albumin [Mass/Vol] 4.5 g/dL Normal 3.9-4.9 [facility] Comment on above: Order Comment: Speci men Type: BLOOD SPECIMENOrdering Facility: [facility] Address: [address] [place] [address] Performed By: #### 2 4323-8 ####[facility] LABCLIA [id number] [place] [address] ALP [Catalytic activity/Vol] 133 U/L High 34-123 [facility] Comment on above: Order Comment: Speci men Type: BLOOD SPECIMENOrdering Facility: [facility] Address: [address] [place] [address] Performed By: #### 2 4323-8 ####[facility] LABCLIA [id number] [place] [address] ALT [Catalytic activity/Vol] 37 U/L Normal 7-38 [facility] Comment on above: Order Comment: Speci men Type: BLOOD SPECIMENOrdering Facility: [facility] Address: [address] [place] [address] Performed By: #### 2 4323-8 ####[facility] LABCLIA [id number] [place] [address] Anion gap [Moles/Vol] 10 mmol/L Normal 9-18 [facility] Comment on above: Order Comment: Speci men Type: BLOOD SPECIMENOrdering Facility: [facility] Address: [address] [place] [address] Performed By: #### 2 4323-8 ####[facility] LABCLIA [id number] [place] [address] AST [Catalytic activity/Vol] 26 U/L Normal 13-35 [facility] Comment on above: Order Comment: Speci men Type: BLOOD SPECIMENOrdering Facility: [facility] Address: [address] [place] [address] Performed By: #### 2 4323-8 ####[facility] LABCLIA [id number] [place] [address] Bilirubin [Mass/Vol] 0.3 mg/dL Normal 0.2-1.3 [facility] [place] Comment on above: Order Comment: Speci men Type: BLOOD SPECIMENOrdering Facility: [facility] Address: [address] [place] [address] Performed By: #### 2 4323-8 ####[facility] LABCLIA [id number] [place] [address] Calcium [Mass/Vol] 9.5 mg/dL Normal 8.5-10.2 [facility] Comment on above: Order Comment: Speci men Type: BLOOD SPECIMENOrdering Facility: [facility] Address: [address] [place] [address] Performed By: #### 2 4323-8 ####[facility] LABCLIA [id number] [place] [address] Chloride [Moles/Vol] 106 mmol/L High 97-105 [facility] [place] Comment on above: Order Comment: Speci men Type: BLOOD SPECIMENOrdering Facility: [facility] Address: [address] [place] [address] Performed By: #### 2 4323-8 ####[facility] LABCLIA [id number] [place] [address] CO2 [Moles/Vol] 24 mmol/L Normal 22-30 [facility] Comment on above: Order Comment: Speci men Type: BLOOD SPECIMENOrdering Facility: [facility] Address: [address] [place] [address] Performed By: #### 2 4323-8 ####[facility] LABCLIA [id number] [place] [address] Creatinine [Mass/Vol] 0.59 mg/dL Normal 0.58-0.96 [facility] Comment on above: Order Comment: Speci men Type: BLOOD SPECIMENOrdering Facility: [facility] Address: [address] [place] [address] Performed By: #### 2 4323-8 ####[facility] LABCLIA [id number] [place] [address] Creatinine and Glomerular filtration rate.predicted panel (S/P/Bld) 113 mL/min/1.73m??? Normal >=60 [facility] Comment on above: Order Comment: Speci men Type: BLOOD SPECIMENOrdering Facility: [facility] Address: [address] [place] [address] Result Comment: Randy mated Glomerular Filtration Rate (eGFR) is calculated using the 2020 CKD-EPI creatinine equation. This equation utilizes serum creatinine, sex, and age as parameters. The creatinine assay has traceable calibration to isotope dilution-mass spectrometry. Refer to KDIGO guidelines for clinical interpretation. In patients with unstable renal function, e.g. those with acute kidney injury, the eGFR may not accurately reflect actual GFR. Performed By: #### 2 4323-8 ####[facility] LABCLIA [id number] [place] [address] Glucose [Mass/Vol] 81 mg/dL Normal 74-99 [facility] Comment on above: Order Comment: Speci men Type: BLOOD SPECIMENOrdering Facility: [facility] Address: [address] [place] [address] Result Comment: The [place] [employer] (ADA) provides guidance for cutoff values for fasting glucose and random glucose. The ADA defines fasting as no caloric intake for at least 8 hours. Fasting plasma glucose results between 100 to 125 mg/dL indicate increased risk for diabetes (prediabetes).Fasting plasma glucose results greater than or equal to 126 mg/dL meet the criteria for diagnosis of diabetes. In the absence of unequivocal hyperglycemia, results should be confirmed by repeat testing. In a patient with classic symptoms of hyperglycemia or hyperglycemic crisis, random plasma glucose results greater than or equal to 200 mg/dL meet the criteria for diagnosis of diabetes.Reference: Standards of Medical Care in Diabetes 2016, [place] [employer]. Diabetes Care. 2016.39(Suppl 1). Performed By: #### 2 4323-8 ####[facility] LABCLIA [id number] [place] [address] Potassium [Moles/Vol] 4.3 mmol/L Normal 3.7-5.1 [facility] Comment on above: Order Comment: Speci men Type: BLOOD SPECIMENOrdering Facility: [facility] Address: [address] [place] [address] Performed By: #### 2 4323-8 ####[facility] LABCLIA [id number] [place] [address] Protein [Mass/Vol] 6.9 g/dL Normal 6.3-8.0 [facility] Comment on above: Order Comment: Speci men Type: BLOOD SPECIMENOrdering Facility: [facility] Address: [address] [place] [address] Performed By: #### 2 4323-8 ####[facility] LABCLIA [id number] [place] [address] Sodium [Moles/Vol] 140 mmol/L Normal 136-144 [facility] Comment on above: Order Comment: Speci men Type: BLOOD SPECIMENOrdering Facility: [facility] Address: [address] [place] [address] Performed By: #### 2 4323-8 ####[facility] LABCLIA [id number] [place] [address] Urea nitrogen [Mass/Vol] 10 mg/dL Normal 7-21 [facility] Comment on above: Order Comment: Speci men Type: BLOOD SPECIMENOrdering Facility: [facility] Address: [address] [place] [address] Performed By: #### 2 4323-8 ####[facility] LABCLIA [id number] [place] [address] EGD - THERAPEUTIC, EUS, OR T UBE INTERVENTIONSon 06-26-2023 [facility] Ferritin SerPl-ncon 2022 Ferritin [Mass/Vol] 349.0 ng/mL High 14.7-205.1 [facility] Comment on above: Order Comment: Speci men Type: BLOOD SPECIMENOrdering Facility: [facility] Address: [address] [place] [address] Performed By: #### 1 988-5, 84185-8, 2275-12, 2132-05 ####[facility] LABCLIA [id number] [place] [address] [place] HISTORY PHYSICALon HISTORY PHYSICAL Normal [facility] Iron and Iron binding capaci ty panelon 06-26-2023 Iron [Mass/Vol] 109 ug/dL Normal 41-186 [facility] Comment on above: Order Comment: Speci men Type: BLOOD SPECIMENOrdering Facility: [facility] Address: [address] [place] [address] Performed By: #### 1 988-5, 28026-3, 2275-12, 2132-05 ####[facility] LABCLIA [id number] [place] [address] [place] Iron binding capacity [Mass/Vol] 364 ug/dL Normal 232-386 [facility] Comment on above: Order Comment: Speci men Type: BLOOD SPECIMENOrdering Facility: [facility] Address: [place] [address] Performed By: #### 1 988-5, 36100-1, 2275-4, 2132-05 ####[facility] LABCLIA [id number] [address] [address] [place] Iron/TIBC [Molar ratio] 29.9 % Normal 15.0-57.0 [facility] Comment on above: Order Comment: Speci men Type: BLOOD SPECIMENOrdering Facility: [facility] Address: [address] [place] [address] Performed By: #### 1 988-5, 70398-9, 2275-4, 2132-05 ####[facility] LABCLIA [id number] [place] [id number] [place] NURSING PROGon 06-26-[address] [facility] NURSING PROG Normal [facility] Retics #on 06-26-2023 Reticulocytes (Bld) [#/Vol] 0.66731 10*3/uL Normal 0.018-0.[address] [facility] Comment on above: Order Comment: Speci men Type: BLOOD SPECIMENOrdering Facility: [facility] Address: [address] [place] [address] Performed By: #### 5 7021-8, 10071-0 ####[facility] LABCLIA [id number] [place] [address] Reticulocytes (Bld) [#/Vol]o n 06-26-2023 Reticulocytes/100 RBC (Bld) 1.6 % Normal 0.4-2.0 [facility] Comment on above: Order Comment: Speci men Type: BLOOD SPECIMENOrdering Facility: [facility] Address: [address] [place] [address] Performed By: #### 5 7021-8, 44266-8 ####[facility] LABCLIA [id number] [place] [address] Upper EUSon 06-26-[address] [facility] Vit B12 SerPl-mCncon 023 Cobalamin (Vitamin B12) [Mass/Vol] 434 pg/mL Normal 232-1245 [facility] Comment on above: Order Comment: Speci men Type: BLOOD SPECIMENOrdering Facility: [facility] Address: [address] [place] [address] Performed By: #### 1 988-5, 51849-4, 2276-4, 2132-9 ####[facility] LABCLIA [id number] [place] [address] [place] CNPNon 06-19-[address] [facility] CNPNon 06-15-[address] [facility] Basic metabolic 2000 panelon 06-12-2023 Anion gap [Moles/Vol] 10 mmol/L Normal 9-18 [facility] Comment on above: Order Comment: Speci men Type: BLOOD SPECIMENOrdering Facility: [facility] Address: [address] Performed By: #### 1 988-5, 82873-4, 34212-2 ####[facility] LABCLIA [id number] [place] [address] [place] Calcium [Mass/Vol] 9.5 mg/dL Normal 8.5-10.2 [facility] Comment on above: Order Comment: Speci men Type: BLOOD SPECIMENOrdering Facility: [facility] Address: [address] [place] [address] Performed By: #### 1 988-5, 99722-2, 72937-3 ####[facility] LABCLIA [id number] [place] [id number] [place] Chloride [Moles/Vol] 105 mmol/L Normal 97-105 [facility] [place] Comment on above: Order Comment: Speci men Type: BLOOD SPECIMENOrdering Facility: [facility] Address: [address] [place] [address] Performed By: #### 1 988-5, 05526-9, 40688-2 ####[facility] LABCLIA [id number] [place] [address] [place] CO2 [Moles/Vol] 25 mmol/L Normal 22-30 [facility] Comment on above: Order Comment: Speci men Type: BLOOD SPECIMENOrdering Facility: [facility] Address: [address] [place] [address] Performed By: #### 1 988-5, 28537-7, 07012-9 ####[facility] LABCLIA [id number] [place] [address] [place] Creatinine [Mass/Vol] 0.50 mg/dL Low 0.58-0.96 [facility] Comment on above: Order Comment: Speci men Type: BLOOD SPECIMENOrdering Facility: [facility] Address: [address] [place] [address] Performed By: #### 1 988-5, 20955-6, 02756-7 ####[facility] LABCLIA [id number] [place] [address] [place] Creatinine and Glomerular filtration rate.predicted panel (S/P/Bld) 117 mL/min/1.73m??? Normal >=60 [facility] Comment on above: Order Comment: Speci men Type: BLOOD SPECIMENOrdering Facility: [facility] Address: [address] [place] [address] Result Comment: Randy mated Glomerular Filtration Rate (eGFR) is calculated using the 2020 CKD-EPI creatinine equation. This equation utilizes serum creatinine, sex, and age as parameters. The creatinine assay has traceable calibration to isotope dilution-mass spectrometry. Refer to KDIGO guidelines for clinical interpretation. In patients with unstable renal function, e.g. those with acute kidney injury, the eGFR may not accurately reflect actual GFR. Performed By: #### 1 988-5, 66403-9, 56039-3 ####[facility] LABCLIA [id number] [address] [address] [place] Glucose [Mass/Vol] 94 mg/dL Normal 74-99 [facility] Comment on above: Order Comment: Speci men Type: BLOOD SPECIMENOrdering Facility: [facility] Address: [address] [place], [place] [address] Result Comment: The [place] Diabetes Association (ADA) provides guidance for cutoff values for fasting glucose and random glucose. The ADA defines fasting as no caloric intake for at least 8 hours. Fasting plasma glucose results between 100 to 125 mg/dL indicate increased risk for diabetes (prediabetes).Fasting plasma glucose results greater than or equal to 126 mg/dL meet the criteria for diagnosis of diabetes. In the absence of unequivocal hyperglycemia, results should be confirmed by repeat testing. In a patient with classic symptoms of hyperglycemia or hyperglycemic crisis, random plasma glucose results greater than or equal to 200 mg/dL meet the criteria for diagnosis of diabetes.Reference: Standards of Medical Care in Diabetes 2016, [place] [employer]. Diabetes Care. 2016.39(Suppl 1). Performed By: #### 1 988-5, 04983-4, 48978-1 ####[facility] LABCLIA [id number] [place] [address] [place] Potassium [Moles/Vol] 4.1 mmol/L Normal 3.7-5.1 [facility] Comment on above: Order Comment: Speci men Type: BLOOD SPECIMENOrdering Facility: [facility] Address: [address] [place] [address] Performed By: #### 1 988-5, 66951-6, 26444-5 ####[facility] LABIA [id number] [place] [address] [place] Sodium [Moles/Vol] 140 mmol/L Normal 136-144 [facility] Comment on above: Order Comment: Speci men Type: BLOOD SPECIMENOrdering Facility: [facility] Address: [address] [place] [address] Performed By: #### 1 988-5, 88106-6, 92815-5 ####[facility] LABIA [id number] [place] [address] [place] Urea nitrogen [Mass/Vol] 6 mg/dL Low 7-21 [facility] Comment on above: Order Comment: Speci men Type: BLOOD SPECIMENOrdering Facility: [facility] Address: [address] [place] [address] Performed By: #### 1 988-5, 91221-0, 62107-0 ####[facility] LABCLIA [id number] [place] [address] [place] C diff Tox gens Stl Ql MEAGAN+p robeon 06-12-2023 C. difficile toxin genes MEAGAN+probe Ql (Stl) Negative Normal Negative for C. difficile toxin by PCR [facility] Comment on above: Order Comment: Speci men Type: STOOL SPECIMENOrdering Facility: [facility] Address: [address] [place] [address] Performed By: #### 5 4067-4 ####[facility] LABIA [id number] [place] [address] [place] CBC panel Auto (Bld)on 06-12 Erythrocyte distribution width (RBC) [Ratio] 13.7 % Normal 11.5-15.0 [facility] Comment on above: Order Comment: Speci men Type: BLOOD SPECIMENOrdering Facility: [facility] Address: [address] [place] [address] Performed By: #### 5 8410-2 ####[facility] LABIA [id number] [place] [address] [place] Hematocrit (Bld) [Volume fraction] 36.5 % Normal 36.0-46.0 [facility] Comment on above: Order Comment: Speci men Type: BLOOD SPECIMENOrdering Facility: [facility] Address: [address] Performed By: #### 5 8410-2 ####[facility] LABCLIA [id number] [place] [address] [place] Hemoglobin (Bld) [Mass/Vol] 12.3 g/dL Normal 11.5-15.5 [facility] Comment on above: Order Comment: Speci men Type: BLOOD SPECIMENOrdering Facility: [facility] Address: [address] Performed By: #### 5 8410-2 ####[facility] LABCLIA [id number] [place] [address] [place] MCH (RBC) [Entitic mass] 29.6 pg Normal 26.0-34.0 [facility] Comment on above: Order Comment: Speci men Type: BLOOD SPECIMENOrdering Facility: [facility] Address: [address] [place], [place] [address] Performed By: #### 5 8410-2 ####[facility] LABCLIA [id number] [address] [place] MCHC (RBC) [Mass/Vol] 33.7 g/dL Normal 30.5-36.0 [facility] Comment on above: Order Comment: Speci men Type: BLOOD SPECIMENOrdering Facility: [facility] Address: [address] Performed By: #### 5 8410-2 ####[facility] LABCLIA [id number] [place] [address] [place] MCV (RBC) [Entitic vol] 87.7 fL Normal 80.0-100.0 [facility] Comment on above: Order Comment: Speci men Type: BLOOD SPECIMENOrdering Facility: [facility] Address: [address] [place], [place] [address] Performed By: #### 5 8410-2 ####[facility] LABCLIA [id number] [place] [address] [place] Nucleated RBC (Bld) [#/Vol] 10*3/uL Normal <0.01 [facility] Comment on above: Order Comment: Speci men Type: BLOOD SPECIMENOrdering Facility: [facility] Address: [address] [place] [address] Performed By: #### 5 8410-2 ####[facility] LABIA [id number] [place] [address] [place] Platelet mean volume (Bld) [Entitic vol] 10.0 fL Normal 9.0-12.7 [facility] Comment on above: Order Comment: Speci men Type: BLOOD SPECIMENOrdering Facility: [facility] Address: [address] [place] [address] Performed By: #### 5 8410-2 ####[facility] LABIA [id number] [place] [address] [place] Platelets (Bld) [#/Vol] 230 10*3/uL Normal 150-400 [facility] Comment on above: Order Comment: Speci men Type: BLOOD SPECIMENOrdering Facility: [facility] Address: [address] [place] [address] Performed By: #### 5 8410-2 ####[facility] LABIA [id number] [place] [address] [place] RBC (Bld) [#/Vol] 4.16 10*6/uL Normal 3.90-5.20 [facility] Comment on above: Order Comment: Speci men Type: BLOOD SPECIMENOrdering Facility: [facility] Address: [address] [place] [address] Performed By: #### 5 8410-2 ####[facility] LABIA [id number] [place] [address] [place] WBC (Bld) [#/Vol] 6.04 10*3/uL Normal 3.70-11.00 [facility] Comment on above: Order Comment: Speci men Type: BLOOD SPECIMENOrdering Facility: [facility] Address: [address] [place] [address] Performed By: #### 5 8410-2 ####[facility] LABCLIA [id number] [place] [address] [place] CNDSon 06-12-[address] [facility] CRP SerPl-mCncon 06-12-2023 CRP [Mass/Vol] mg/L Normal <0.9 [facility] Comment on above: Order Comment: Speci men Type: BLOOD SPECIMENOrdering Facility: [facility] Address: [address] [place] [address] Performed By: #### 1 988-5, 02292-0, 54209-3 ####[facility] LABCLIA [id number] [place] [address] [place] Gastrointestinal pathogens i dentified MEAGAN+probe Nom (Stl)on 06-12-2023 Campylobacter sp DNA MEAGAN+probe Nom (Unsp spec) Not detected Normal Not Detected [facility] Comment on above: Order Comment: Speci men Type: STOOL SPECIMENOrdering Facility: [facility] Address: [address] [place] [address] Performed By: #### 7 9390-1 ####[facility] LABCLIA [id number] [place] [address] [place] Salmonella sp DNA MEAGAN+probe Ql (Unsp spec) Not detected Normal Not Detected [facility] Comment on above: Order Comment: Speci men Type: STOOL SPECIMENOrdering Facility: [facility] Address: [address] [place] [address] Performed By: #### 7 9390-1 ####[facility] LABCLIA [id number] [place] [address] [place] Shiga toxin stx gene MEAGAN+probe Nom (Unsp spec) Not detected Normal Not Detected [facility] Comment on above: Order Comment: Speci men Type: STOOL SPECIMENOrdering Facility: [facility] Address: [address] [place] [address] Performed By: #### 7 9390-1 ####[facility] LABCLIA [id number] [address] Shigella sp DNA MEAGAN+probe Ql (Unsp spec) Not detected Normal Not Detected [facility] Comment on above: Order Comment: Speci men Type: STOOL SPECIMENOrdering Facility: [facility] Address: [address] [place] [address] Performed By: #### 7 9390-1 ####[facility] LABCLIA [id number] [address] [place] HISTORY PHYSICALon HISTORY PHYSICAL Normal [facility] Procalcitonin SerPl-mCncon 0 06-12-2023 Procalcitonin [Mass/Vol] ng/mL Normal <0.09 [facility] Comment on above: Order Comment: Speci men Type: BLOOD SPECIMENOrdering Facility: [facility] Address: [address] [place] [address] Result Comment: For a guided interpretation of test results, please visit the Change in Procalcitonin Calculator, [email or web address]. Performed By: #### 1 988-5, 85585-7, 20319-7 ####[facility] LABCLIA [id number] [address] [place] CBC panel Auto (Bld)on 06-11 Erythrocyte distribution width (RBC) [Ratio] 13.9 % Normal 11.5-15.0 [facility] Comment on above: Order Comment: Speci men Type: BLOOD SPECIMENOrdering Facility: [facility] Address: [address] [place] [address] Performed By: #### 5 8410-2 ####[facility] LABIA [id number] [address] [place] Hematocrit (Bld) [Volume fraction] 41.9 % Normal 36.0-46.0 [facility] Comment on above: Order Comment: Speci men Type: BLOOD SPECIMENOrdering Facility: [facility] Address: [address] [place] [address] Performed By: #### 5 8410-2 ####[facility] LABIA [id number] [place] [address] [place] Hemoglobin (Bld) [Mass/Vol] 14.0 g/dL Normal 11.5-15.5 [facility] Comment on above: Order Comment: Speci men Type: BLOOD SPECIMENOrdering Facility: [facility] Address: [address] [place] [address] Performed By: #### 5 8410-2 ####[facility] LABIA [id number] [address] [place] MCH (RBC) [Entitic mass] 29.8 pg Normal 26.0-34.0 [facility] Comment on above: Order Comment: Speci men Type: BLOOD SPECIMENOrdering Facility: [facility] Address: [address] [place] [address] Performed By: #### 5 8410-2 ####[facility] LABIA [id number] [address] [place] MCHC (RBC) [Mass/Vol] 33.4 g/dL Normal 30.5-36.0 [facility] Comment on above: Order Comment: Speci men Type: BLOOD SPECIMENOrdering Facility: [facility] Address: [address] [place] [address] Performed By: #### 5 8410-2 ####[facility] LABIA [id number] [address] [place] MCV (RBC) [Entitic vol] 89.1 fL Normal 80.0-100.0 [facility] Comment on above: Order Comment: Speci men Type: BLOOD SPECIMENOrdering Facility: [facility] Address: [address] [place], [place] [address] Performed By: #### 5 8410-2 ####[facility] LABIA [id number] [place] [address] [place] Nucleated RBC (Bld) [#/Vol] 10*3/uL Normal <0.01 [facility] Comment on above: Order Comment: Speci men Type: BLOOD SPECIMENOrdering Facility: [facility] Address: [address] [place], [place] [address] Performed By: #### 5 8410-2 ####[facility] LABIA [id number] [place] [address] [place] Platelet mean volume (Bld) [Entitic vol] 9.7 fL Normal 9.0-12.7 [facility] Comment on above: Order Comment: Speci men Type: BLOOD SPECIMENOrdering Facility: [facility] Address: [address] [place], [place] [address] Performed By: #### 5 8410-2 ####[facility] LABIA [id number] [place] [address] [place] Platelets (Bld) [#/Vol] 249 10*3/uL Normal 150-400 [facility] Comment on above: Order Comment: Speci men Type: BLOOD SPECIMENOrdering Facility: [facility] Address: [address] [place], [place] [address] Performed By: #### 5 8410-2 ####[facility] LABCLIA [id number] [place] [address] [place] RBC (Bld) [#/Vol] 4.70 10*6/uL Normal 3.90-5.20 [facility] Comment on above: Order Comment: Speci men Type: BLOOD SPECIMENOrdering Facility: [facility] Address: [address] [place], [place] [address] Performed By: #### 5 8410-2 ####[facility] LABCLIA [id number] [place] [address] [place] WBC (Bld) [#/Vol] 6.03 10*3/uL Normal 3.70-11.00 [facility] Comment on above: Order Comment: Speci men Type: BLOOD SPECIMENOrdering Facility: [facility] Address: [address] [place] [address] Performed By: #### 5 8410-2 ####[facility] LABCLIA [id number] [place] [address] [facility] Comprehensive metabolic 2000 panelon 06-11-2023 Albumin [Mass/Vol] 4.6 g/dL Normal 3.9-4.9 [facility] Comment on above: Order Comment: Speci men Type: BLOOD SPECIMENOrdering Facility: [facility] Address: [address] [place], [place] [address] Performed By: #### 2 777-1, 3040-3, 64284-1 ####[facility] LABCLIA [id number] [place] [address] [place] ALP [Catalytic activity/Vol] 125 U/L High 34-123 [facility] Comment on above: Order Comment: Speci men Type: BLOOD SPECIMENOrdering Facility: [facility] Address: [address] Performed By: #### 2 777-1, 3040-3, 12769-7 ####[facility] LABCLIA [id number] [address] [place] ALT [Catalytic activity/Vol] 23 U/L Normal 7-38 [facility] Comment on above: Order Comment: Speci men Type: BLOOD SPECIMENOrdering Facility: [facility] Address: [address] Performed By: #### 2 777-1, 3040-3, 07871-1 ####[facility] LABCLIA [id number] [place] [address] [place] Anion gap [Moles/Vol] 11 mmol/L Normal 9-18 [facility] Comment on above: Order Comment: Speci men Type: BLOOD SPECIMENOrdering Facility: [facility] Address: [address] Performed By: #### 2 777-1, 3040-3, 73686-8 ####[facility] LABIA [id number] [place] [address] [place] AST [Catalytic activity/Vol] 16 U/L Normal 13-35 [facility] Comment on above: Order Comment: Speci men Type: BLOOD SPECIMENOrdering Facility: [facility] Address: [address] Performed By: #### 2 777-1, 3040-3, 97976-3 ####[facility] LABIA [id number] [place] [address] [place] Bilirubin [Mass/Vol] 0.2 mg/dL Normal 0.2-1.3 [facility] [place] Comment on above: Order Comment: Speci men Type: BLOOD SPECIMENOrdering Facility: [facility] Address: [address] Performed By: #### 2 777-1, 3040-3, 36180-0 ####[facility] LABIA [id number] [place] [address] [place] Calcium [Mass/Vol] 9.7 mg/dL Normal 8.5-10.2 [facility] Comment on above: Order Comment: Speci men Type: BLOOD SPECIMENOrdering Facility: [facility] Address: [address] Performed By: #### 2 777-1, 3040-3, 70554-8 ####[facility] LABIA [id number] [place] [address] [place] Chloride [Moles/Vol] 106 mmol/L High 97-105 [facility] [place] Comment on above: Order Comment: Speci men Type: BLOOD SPECIMENOrdering Facility: [facility] Address: [address] [place] [address] Performed By: #### 2 777-1, 3040-3, 81662-8 ####[facility] LABIA [id number] [place] [address] [place] CO2 [Moles/Vol] 24 mmol/L Normal 22-30 [facility] Comment on above: Order Comment: Speci men Type: BLOOD SPECIMENOrdering Facility: [facility] Address: [address] [place], [place] [address] Performed By: #### 2 777-1, 3040-3, 13199-5 ####[facility] [id number] [place] [address] [place] Creatinine [Mass/Vol] 0.65 mg/dL Normal 0.58-0.96 [facility] Comment on above: Order Comment: Speci men Type: BLOOD SPECIMENOrdering Facility: [facility] Address: [address] [place] [address] Performed By: #### 2 777-1, 3040-3, 48957-1 ####[facility] [id number] [place] [address] [place] [facility] [place] Creatinine and Glomerular filtration rate.predicted panel (S/P/Bld) 110 mL/min/1.73m??? Normal >=60 [facility] Comment on above: Order Comment: Speci men Type: BLOOD SPECIMENOrdering Facility: [facility] Address: [address] [place] [address] Result Comment: Randy mated Glomerular Filtration Rate (eGFR) is calculated using the 2020 CKD-EPI creatinine equation. This equation utilizes serum creatinine, sex, and age as parameters. The creatinine assay has traceable calibration to isotope dilution-mass spectrometry. Refer to KDIGO guidelines for clinical interpretation. In patients with unstable renal function, e.g. those with acute kidney injury, the eGFR may not accurately reflect actual GFR. Performed By: #### 2 777-1, 3040-3, 13515-3 ####[facility] LABCLIA [id number] [address] [address] [place] Glucose [Mass/Vol] 97 mg/dL Normal 74-99 [facility] Comment on above: Order Comment: [place] fields Type: BLOOD SPECIMENOrdering Facility: [facility] Address: [address] [place] [address] Result Comment: The [place] Diabetes Association (ADA) provides guidance for cutoff values for fasting glucose and random glucose. The ADA defines fasting as no caloric intake for at least 8 hours. Fasting plasma glucose results between 100 to 125 mg/dL indicate increased risk for diabetes (prediabetes).Fasting plasma glucose results greater than or equal to 126 mg/dL meet the criteria for diagnosis of diabetes. In the absence of unequivocal hyperglycemia, results should be confirmed by repeat testing. In a patient with classic symptoms of hyperglycemia or hyperglycemic crisis, random plasma glucose results greater than or equal to 200 mg/dL meet the criteria for diagnosis of diabetes.Reference: Standards of Medical Care in Diabetes 2016, [place] [employer] Association. Diabetes Care. 2016.39(Suppl 1). Performed By: #### 2 777-1, 3040-3, 17674-4 ####[facility] LABIA [id number] [address] [address] [place] Potassium [Moles/Vol] 4.0 mmol/L Normal 3.7-5.1 [facility] Comment on above: Order Comment: [place] men Type: BLOOD SPECIMENOrdering Facility: [facility] Address: [address] [place] [address] Performed By: #### 2 777-1, 3, ####[facility] LABCLIA [id number] [place] [id number] [place] Protein [Mass/Vol] 7.4 g/dL Normal 6.3-8.0 [facility] Comment on above: Order Comment: Speci men Type: BLOOD SPECIMENOrdering Facility: [facility] Address: [address] [place] [address] Performed By: #### 2 777-1, 3, ####[facility] LABIA [id number] [place] [address] [place] Sodium [Moles/Vol] 141 mmol/L Normal 136-144 [facility] Comment on above: Order Comment: Speci men Type: BLOOD SPECIMENOrdering Facility: [facility] Address: [address] [place] [address] Performed By: #### 2 777-1, 3, ####[facility] LABIA [id number] [place] [address] [place] Urea nitrogen [Mass/Vol] 9 mg/dL Normal 7-21 [facility] Comment on above: Order Comment: Speci men Type: BLOOD SPECIMENOrdering Facility: [facility] Address: [address] [place] [address] Performed By: #### 2 777-1, 3, ####[facility] LABIA [id number] [place] [id number] [place] ED PROV NOTEon 06-11-[address] [facility] ED Triage Noteon 06-11-[address] [facility] Lipase SerPl-cCncon 06-11-20 23 Lipase [Catalytic activity/Vol] 12 U/L Low 16-61 [facility] Comment on above: Order Comment: Speci men Type: BLOOD SPECIMENOrdering Facility: [facility] Address: [address] [place] [address] Performed By: #### 2 777-1, 3040-3, 17923-4 ####[facility] LABCLIA [id number] [place] [id number] [place] Phosphate SerPl-mCncon 06-11 Phosphate [Mass/Vol] 3.7 mg/dL Normal 2.7-4.8 [facility] [place] Comment on above: Order Comment: Speci men Type: BLOOD SPECIMENOrdering Facility: [facility] Address: [address] [place] [id number] Performed By: #### 2 777-1, 3040-3, 91060-1 ####[facility] LABCLIA [id number] [place] [address] [place] Clostridium Difficileon 05-16 Clostridium Difficile Negative Normal Negative [facility] Comment on above: Order Comment: > or = to 3 loose/watery stools in the last 24 HRS? Y Is patient on promotility agents or tube feeding? N Result Comment: Test ing performed by RT-PCR PERFORMED BY: [facility] [address] [facility] [place] [address] PATHOLOGIST LATIN DANCER SUMAN NICHOLSON M.D. Performed By: #### L ACTO SWBC #### [facility] [address] Glucose Glucometer (BldC) [M ass/Vol]Ordered By: Tavares Prince on 06-04-2023 Glucose [Mass/Vol] 91 mg/dL [facility] Comment on above: Random Glucose Refer ence Range is dependent on time and content of last meal. Glucose of more than 200 mg/dL in a nonstressed, ambulatory subject supports the diagnosis of Diabetes Mellitus. Glucose Poct Glucometerson 0 06-04-2023 Glucose [Mass/Vol] 91 mg/dL Normal [facility] Comment on above: Result Comment: [place] Glucose Reference Range is dependent on time and content of last meal. Glucose of more than 200 mg/dL in a nonstressed, ambulatory subject supports the diagnosis of Diabetes Mellitus. PERFORMED BY: [place] [address] PATHOLOGIST LATIN DANCER SUMAN NICHOLSON M.D. Performed By: #### G LULS #### Point of Care testing , Glucose [Mass/Vol] 100 mg/dL [facility] Comment on above: Result Comment: [facility] Glucose Reference Range is dependent on time and content of last meal. Glucose of more than 200 mg/dL in a nonstressed, ambulatory subject supports the diagnosis of Diabetes Mellitus. PERFORMED BY: [place] [address] PATHOLOGIST LATIN DANCER SUMAN NICHOLSON M.D. Performed By: #### G LUPEÑA #### Point of Care testing , Stool Cultureon 06-04-2023 Stool culture Negative for Shiga T oxin 1 Negative for Shiga Toxin 2 -- A negative Shiga Toxin result may occur if the antigen level in the specimen is below the detection limit of the assay. Stool culture results No Salmonella, Shigella, Campy or E. coli 0157:H7 Isolated PERFORMED BY: [place] [address] PATHOLOGIST LATIN DANCER SUMAN NICHOLSON M.D. [facility] Comment on above: Performed By: #### C USTOOL #### [address] Activated partial thrombopla stin time (aPTT) in platelet poor plasma by coagulation aOrdered By: Skip Soto on 06-03-2023 aPTT Coag (PPP) [Time] 28.4 s 25.1-36.5 [facility] Comment on above: A hematocrit value g reater than 55% may lead to inaccurate results in coagulation testing. Patients having hematocrit values >55% require a special collection tube for coagulation studies. Please contact the laboratory at [phone] for redraw instructions. Alanine aminotransferase [En zymatic activity/volume] in Serum or PlasmaOrdered By: Skip Soto on 06-03-2023 ALT [Catalytic activity/Vol] 43 U/L 7-52 [facility] Albumin [Mass/volume] in Ser um or Plasma by Bromocresol green (BCG) dye binding methoOrdered By: Skip Soto on 06-03-2023 Albumin BCG dye [Mass/Vol] 4.3 g/dL 3.5-5.7 [facility] Alkaline phosphatase [Enzyma tic activity/volume] in Serum or PlasmaOrdered By: Skip Soto on 06-03-2023 ALP [Catalytic activity/Vol] 104 U/L 34-104 [facility] Aspartate aminotransferase [ Enzymatic activity/volume] in Serum or PlasmaOrdered By: Skip Soto on 06-03-2023 AST [Catalytic activity/Vol] 26 U/L 13-39 [facility] Basic Metabolic Panelon 05-16 Anion gap [Moles/Vol] 14.5 mmol/L Normal 6.0-15.0 [facility] Comment on above: Performed By: #### C USTOOL #### [facility] [address] [place] [id number] [place] Calcium [Mass/Vol] 9.3 mg/dL Normal 8.6-10.3 [facility] Comment on above: Performed By: #### C USTOOL #### [facility] [address] [place] [address] [place] Chloride [Moles/Vol] 106 mmol/L Normal 98-107 [facility] Comment on above: Performed By: #### C USTOOL #### [facility] [address] [place] [address] [place] CO2 [Moles/Vol] 25.4 mmol/L Normal 21.0-31.0 [facility] Comment on above: Performed By: #### C USTOOL #### [facility] [address] [place] [address] [place] Creatinine [Mass/Vol] 0.62 mg/dL Normal 0.60-1.20 [facility] Comment on above: Performed By: #### C USTOOL #### [facility] [address] [place] [address] [place] Creatinine Clr Calc Pharmacy 132.34 [facility] Comment on above: Performed By: #### C USTOOL #### [facility] [address] [place] [address] [place] GFR/1.73 sq M.predicted MDRD (S/P/Bld) [Vol rate/Area] mL/min/{1.73_m2} [facility] Comment on above: Performed By: #### C USTOOL #### [facility] [address] Glucose [Mass/Vol] 138 mg/dL High 70-100 [facility] Comment on above: Result Comment: [facility] Glucose Reference Range is dependent on time and content of last meal. Glucose of more than 200 mg/dL in a nonstressed, ambulatory subject supports the diagnosis of Diabetes Mellitus. ADA recommended reference range Performed By: #### C USTOOL #### [facility] [address] Potassium [Moles/Vol] 3.9 mmol/L Normal 3.5-5.1 [facility] Comment on above: Performed By: #### C USTOOL #### [facility] [address] [place] [address] [place] Sodium [Moles/Vol] 142 mmol/L Normal 136-145 [facility] Comment on above: Performed By: #### C USTOOL #### [facility] [address] [place] [address] [place] Urea nitrogen [Mass/Vol] 8 mg/dL Normal 7-25 [facility] Comment on above: Performed By: #### C USTOOL #### [place] [address] [place] Basophils Auto (Bld) [#/Vol] Ordered By: Skip Soto on 06-03-2023 Basophils (Bld) [#/Vol] 0.1 10*3/uL 0.0-0.2 [facility] Basophils/100 WBC Auto (Bld) Ordered By: Skip Soto on 06-03-2023 Basophils/100 WBC (Bld) 1.1 % . [facility] Bilirubin Test strip Ql (U)O rdered By: Skip Soto on 06-03-2023 Bilirubin Ql (U) Negative Negative [facility] Bilirubin.direct [Mass/volum e] in Serum or PlasmaOrdered By: Skip Soto on 06-03-2023 Bilirubin.direct [Mass/Vol] 0.10 mg/dL 0.03-0.18 [facility] Bilirubin.total [Mass/volume ] in Serum or PlasmaOrdered By: Skip Soto on 06-03-2023 Bilirubin [Mass/Vol] 0.5 mg/dL 0.3-1.0 [facility] CT abdomen pelvis w conon CT abdomen pelvis w con [facility] [place] [address] CT Scan Report Signed Patient: Melina Díaz MR#: [id number] : 1975 Acct:[id number] Age/Sex: 47 / F ADM Date: 06/03/23 Loc: ER Room: Type: [facility] ER Attending Dr: Copies to: Skip Soto DO Ordering Provider: Skip Soto DO Date of Service: 06/03/23 CT/CT abdomen pelvis w con: Abdominal Pain CT abdomen pelvis w con 06/03/2023 8:29 AM SIGNS AND SYMPTOMS: Mid to lower abdominal pain with nausea, vomiting, and diarrhea. TECHNIQUE: Multidetector ct axial images of the abdomen and pelvis were obtained with IV contrast. Multiplanar reformats were performed and reviewed to further define anatomy and possible pathology. CT was performed with one or more of the following dose reduction techniques: Automated exposure control, adjustment of the mA and/or kV according to patient size, or use of iterative reconstruction technique. COMPARISON: 04/29/2022. FINDINGS: Lower Chest: Within normal limits. ABDOMEN: Liver: Within normal limits. Bile Ducts: Normal caliber. Gallbladder: Previously removed. Pancreas: Within normal limits. Spleen: There is a 1.6 cm hypoattenuating focus in the spleen which is similar to that seen on the prior exam. This is of uncertain etiology. Adrenals: Within normal limits. Kidneys: Within normal limits. Pelvis: Reproductive Organs: No pelvic masses. Ureters: Within normal limits. Bladder: Within normal limits. Bowel: There is mildly diffuse wall thickening in the colon suspicious for an underlying colitis. This may be infectious or inflammatory in nature. This appears to be new compared to the prior exam. No evidence of bowel obstruction. 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 There is evidence of prior partial resection. Mesenteric Lymph Nodes: No enlarged mesenteric lymph nodes. Peritoneum: No ascites or free air, no fluid collection. Vessels: within normal limits Retroperitoneum: Within normal limits. Abdominal Wall: Within normal limits. Bones: Degenerative changes are noted in the thoracolumbar spine. Degenerative changes are noted in the hips, left greater than right. CT/CT abdomen pelvis w con IMPRESSION: No bowel obstruction or obstructive uropathy. There is mildly diffuse wall thickening in the colon suspicious for an underlying colitis. This may be infectious or inflammatory in nature. This appears to be new compared to the prior exam. Similar postsurgical changes are noted, as above. Impression dictated by: Lamar James M.D.06/03/2023 10:59 AM Dictation Location: [place] [address] Transcribed By: [facility] 06/03/23 1059 Dictated By: Lamar James II, MD 06/03/23 1043 Signed By: 06/03/23 1059 Normal [facility] Calcium [Mass/volume] in Ser um or PlasmaOrdered By: Skip Soto on 06-03-2023 Calcium [Mass/Vol] 9.3 mg/dL 8.6-10.3 [facility] Carbon dioxide, total [Moles /volume] in Serum or PlasmaOrdered By: Skip Soto on 06-03-2023 CO2 [Moles/Vol] 25.4 mmol/L 21.0-31.0 [facility] Chloride [Moles/volume] in S krystyna or PlasmaOrdered By: Skip Soto on 06-03-2023 Chloride [Moles/Vol] 106 mmol/L 98-107 [facility] Clostridioides difficile tox in B tcdB gene [Presence] in Stool by MEAGAN with probe deteOrdered By: Skip Brittany on 06-03-2023 C. difficile toxin B tcdB gene MEAGAN+probe Ql (Stl) Negative Negative [facility] Comment on above: Testing performed by RT-PCR Color Auto (U)Ordered By: Landon Soto on 06-03-2023 Color (U) Yellow Yellow [facility] Complete Blood Count Auto Di ffon 06-03-2023 Basophils (Bld) [#/Vol] 0.1 10*3/uL Normal 0.0-0.2 [facility] Comment on above: Result Comment: PERF ORMED BY: [place] [address] PATHOLOGIST LATIN DANCER SUMAN NICHOLSON M.D. Performed By: #### C USTOOL #### [address] Basophils/100 WBC (Bld) 1.1 % Normal . [facility] Comment on above: Performed By: #### C USTOOL #### [address] Eosinophils (Bld) [#/Vol] 0.1 10*3/uL Normal 0.0-0.45 [facility] Comment on above: Performed By: #### C USTOOL #### [address] Eosinophils/100 WBC (Bld) 1.5 % Normal . [facility] Comment on above: Performed By: #### C USTOOL #### [address] Erythrocyte distribution width (RBC) [Ratio] 14.5 % Normal 11.9-15.3 [facility] Comment on above: Performed By: #### C USTOOL #### [address] Hematocrit (Bld) [Volume fraction] 41.9 % Normal 34.0-46.4 [facility] Comment on above: Performed By: #### C USTOOL #### [address] [place] [address] [place] Hemoglobin (Bld) [Mass/Vol] 13.9 g/dL Normal 11.8-15.4 [facility] Comment on above: Performed By: #### C USTOOL #### [address] Lymphocytes (Bld) [#/Vol] 2.4 10*3/uL Normal 1.00-4.8 [facility] Comment on above: Performed By: #### C USTOOL #### [address] Lymphocytes/100 WBC (Bld) 33.7 % Normal . [facility] Comment on above: Performed By: #### C USTOOL #### [address] MCH (RBC) [Entitic mass] 29.5 pg Normal 24.7-34.3 [facility] Comment on above: Performed By: #### C USTOOL #### [address] MCV (RBC) [Entitic vol] 89.3 fL Normal 80-100 [facility] Comment on above: Performed By: #### C USTOOL #### [address] Mean Corpuscular HGB Conc 33.1 g/dL Normal 32.0-35.0 [facility] Comment on above: Performed By: #### C USTOOL #### [place] [address] [place] Monocytes (Bld) [#/Vol] 0.5 10*3/uL Normal 0.0-0.8 [facility] Comment on above: Performed By: #### C USTOOL #### [place] [address] [place] Monocytes/100 WBC (Bld) 16.68 % Normal 0.00-20.00 [facility] Comment on above: Performed By: #### C USTOOL #### [place] [id number] [place] Monocytes/100 WBC (Bld) 6.8 % Normal . [facility] Comment on above: Performed By: #### C USTOOL #### [facility] [address] Neutrophils (Bld) [#/Vol] 4.0 10*3/uL Normal 1.8-7.7 [facility] Comment on above: Performed By: #### C USTOOL #### [address] Neutrophils/100 WBC (Bld) 56.9 % Normal . [facility] Comment on above: Performed By: #### C USTOOL #### [address] NRBC% 0.2 /100{WBC} Normal 0-0.5 [facility] Comment on above: Performed By: #### C USTOOL #### [address] Platelet mean volume (Bld) [Entitic vol] 8.3 fL Normal 6.3-10.7 [facility] Comment on above: Performed By: #### C USTOOL #### [address] Platelets (Bld) [#/Vol] 256 10*3/uL Normal 150-450 [facility] Comment on above: Performed By: #### C USTOOL #### [facility] [address] [place] [address] [place] RBC (Bld) [#/Vol] 4.70 10*6/uL Normal 3.60-5.00 [facility] Comment on above: Performed By: #### C USTOOL #### [facility] [address] [place] [address] WBC (Bld) [#/Vol] 7.0 10*3/uL Normal 3.8-11.6 [facility] Comment on above: Performed By: #### C USTOOL #### [place] [address] [place] Creatinine [Mass/volume] in Serum or PlasmaOrdered By: Skip Soto on 06-03-2023 Creatinine [Mass/Vol] 0.62 mg/dL 0.60-1.20 [facility] Eosinophils Auto (Bld) [#/Vo l]Ordered By: Skip Soto on 06-03-2023 Eosinophils (Bld) [#/Vol] 0.1 10*3/uL 0.0-0.45 [facility] Eosinophils/100 WBC Auto (Bl d)Ordered By: Skip Soto on 06-03-2023 Eosinophils/100 WBC (Bld) 1.5 % . [facility] Erythrocyte distribution wid th Auto (RBC) [Ratio]Ordered By: Skip Soto on 06-03-2023 Erythrocyte distribution width (RBC) [Ratio] 14.5 % 11.9-15.3 [facility] Globulin Calc (S) [Mass/Vol] Ordered By: Skip Soto on 06-03-2023 Globulin (S) [Mass/Vol] 2.7 g/dL [facility] Glucose Poct Glucometerson 0 06-03-2023 Glucose [Mass/Vol] 89 mg/dL Normal [facility] Comment on above: Result Comment: [facility] Glucose Reference Range is dependent on time and content of last meal. Glucose of more than 200 mg/dL in a nonstressed, ambulatory subject supports the diagnosis of Diabetes Mellitus. PERFORMED BY: [place] [address] PATHOLOGIST LATIN DANCER SUMAN NICHOLSON M.D. Performed By: #### L ACTO SWBC #### [address] #### CALPROTECT #### [facility] , Glucose [Mass/Vol] 72 mg/dL Normal [facility] Comment on above: Result Comment: [facility] Glucose Reference Range is dependent on time and content of last meal. Glucose of more than 200 mg/dL in a nonstressed, ambulatory subject supports the diagnosis of Diabetes Mellitus. PERFORMED BY: [place] [address] PATHOLOGIST LATIN DANCER SUMAN NICHOLSON M.D. Performed By: #### L ACTO JIMBC #### [facility] [address] Glucose [Mass/volume] in Ser um or PlasmaOrdered By: Skip Soto on 06-03-2023 Glucose [Mass/Vol] 138 mg/dL 70-100 [facility] Comment on above: ADA recommended refe rence rangeRandom Glucose Reference Range is dependent on time and content of last meal. Glucose of more than 200 mg/dL in a nonstressed, ambulatory subject supports the diagnosis of Diabetes Mellitus. Hematocrit Auto (Bld) [Volum e fraction]Ordered By: Skip Soto on 06-03-2023 Hematocrit (Bld) [Volume fraction] 41.9 % 34.0-46.4 [facility] Hemoglobin [Mass/volume] in BloodOrdered By: Skip Soto on 06-03-2023 Hemoglobin (Bld) [Mass/Vol] 13.9 g/dL 11.8-15.4 [facility] Hepatic Panelon 06-03-2023 Albumin [Mass/Vol] 4.3 g/dL Normal 3.5-5.7 [facility] Comment on above: Performed By: #### C USTOOL #### [facility] [address] Albumin/Globulin [Mass ratio] 1.6 {ratio} Normal [facility] Comment on above: Performed By: #### C USTOOL #### [facility] [address] [place] [address] [place] ALP [Catalytic activity/Vol] 104 U/L Normal 34-104 [facility] Comment on above: Performed By: #### C USTOOL #### [facility] [address] [place] [address] [place] ALT [Catalytic activity/Vol] 43 U/L Normal 7-52 [facility] Comment on above: Performed By: #### C USTOOL #### [facility] [address] [place] [address] [place] AST [Catalytic activity/Vol] 26 U/L Normal 13-39 [facility] Comment on above: Performed By: #### C USTOOL #### [facility] [address] Bilirubin [Mass/Vol] 0.5 mg/dL Normal 0.3-1.0 [facility] Comment on above: Performed By: #### C USTOOL #### [facility] [address] Bilirubin,Indirect 0.4 mg/dL Normal [facility] Comment on above: Performed By: #### C USTOOL #### [facility] [address] Bilirubin.indirect [Mass/Vol] 0.10 mg/dL Normal 0.03-0.18 [facility] Comment on above: Performed By: #### C USTOOL #### [facility] [address] Globulin (S) [Mass/Vol] 2.7 g/dL Normal [facility] Comment on above: Performed By: #### C USTOOL #### [facility] [address] Protein [Mass/Vol] 7.0 g/dL Normal 6.4-8.9 [facility] Comment on above: Performed By: #### C USTOOL #### [facility] [address] INR in Platelet poor plasma by Coagulation assayOrdered By: Skip Soto on 06-03-2023 INR Coag (PPP) [Relative time] 0.9 {INR} [facility] Comment on above: INR Therapeutic Rang e A) Pre- and Peroperative OAT started two weeks before surgery. NOT HIP SURGERY: 1.5 - 2.5 HIP SURGERY: 2 - 3B) Primary and secondary prevention of venous THROMBOSIS: 2 - 3C) Active venous thrombosis, pulmonary embolismand prevention of recurrent venous thrombosis: 2 - 3D) Prevention of arterial thromboembolismincluding patients with mechanical heart valves: 3 - 4.5 Ketones Auto test strip (U) [Mass/Vol]Ordered By: Skip Soto on 06-03-2023 Ketones (U) [Mass/Vol] Negative Negative [facility] Lactate [Moles/volume] in Se rum or PlasmaOrdered By: Skip Soto on 06-03-2023 Lactate [Moles/Vol] 0.8 mmol/L 0.5-2.2 [facility] Lactic Acidon 06-03-2023 Lactate [Moles/Vol] 2.1 mmol/L Off scale high 0.5-2.2 [facility] Comment on above: Result Comment: Crit ical Result : Called to and read back by: KAEL COLÓN at: 06/03/2023 10:09:33 by:[id number] PERFORMED BY: [place] [address] PATHOLOGIST LATIN DANCER SUMAN NICHOLSON M.D. Performed By: #### C USTOOL #### [facility] [address] Lactic Acid Reflexon 023 Lactic Acid Reflex 0.8 mmol/L Normal 0.5-2.2 [facility] Comment on above: Result Comment: PERF ORMED BY: [place] [address] PATHOLOGIST LATIN DANCER SUMAN NICHOLSON M.D. Performed By: #### C BC #### [address] Leukocytes [#/volume] correc nick for nucleated erythrocytes in Blood by Automated counOrdered By: Skip Soto on 06-03-2023 WBC corrected for nucl RBC Auto (Bld) [#/Vol] 7.0 10*3/uL 3.8-11.6 [facility] Lipaseon 06-03-2023 Lipase [Catalytic activity/Vol] 6.0 U/L Low 11.0-82.0 [facility] Comment on above: Result Comment: PERF ORMED BY: [facility] [address] [place] [address] PATHOLOGIST LATIN DANCER SUMAN NICHOLSON M.D. Performed By: #### C USTOOL #### [facility] [address] [place] [id number] [facility] Lipase [Enzymatic activity/v olume] in Serum or PlasmaOrdered By: Skip Soto on 06-03-2023 Lipase [Catalytic activity/Vol] 6.0 U/L 11.0-82.0 [facility] Lymphocytes Auto (Bld) [#/Vo l]Ordered By: Skip Soto on 06-03-2023 Lymphocytes (Bld) [#/Vol] 2.4 10*3/uL 1.00-4.8 [facility] Lymphocytes/100 WBC Auto (Bl d)Ordered By: Skip Soto on 06-03-2023 Lymphocytes/100 WBC (Bld) 33.7 % . [facility] MCH Auto (RBC) [Entitic mass ]Ordered By: Skip Soto on 06-03-2023 MCH (RBC) [Entitic mass] 29.5 pg 24.7-34.3 [facility] MCHC Auto (RBC) [Mass/Vol]Or dered By: Skip Soto on 06-03-2023 MCHC (RBC) [Mass/Vol] 33.1 g/dL 32.0-35.0 [facility] MCV Auto (RBC) [Entitic vol] Ordered By: Skip Soto on 06-03-2023 MCV (RBC) [Entitic vol] 89.3 fL 80-100 [facility] Monocyte distribution width [Entitic volume] in Blood by AutomatedOrdered By: Skip Soto on 06-03-2023 Monocyte distribution width Auto (Bld) [Entitic vol] 16.68 % 0.00-20.00 [facility] Monocytes Auto (Bld) [#/Vol] Ordered By: Skip Soto on 06-03-2023 Monocytes (Bld) [#/Vol] 0.5 10*3/uL 0.0-0.8 [facility] Monocytes/100 WBC Auto (Bld) Ordered By: Skip Soto on 06-03-2023 Monocytes/100 WBC (Bld) 6.8 % . [facility] Neutrophils Auto (Bld) [#/Vo l]Ordered By: Skip Soto on 06-03-2023 Neutrophils (Bld) [#/Vol] 4.0 10*3/uL 1.8-7.7 [facility] Neutrophils/100 WBC Auto (Bl d)Ordered By: Skip Soto on 06-03-2023 Neutrophils/100 WBC (Bld) 56.9 % . [facility] Nitrite Test strip Ql (U)Ord ered By: Skip Soto on 06-03-2023 Nitrite Ql (U) Negative Negative [facility] No Panel InformationOrdered By: Skip Soto on 06-03-2023 Estimated GFR (CKD-EPI) > 60.0 mL/Min [facility] Creatinine Clearance (Chem 132.34 [facility] Nucleated erythrocytes [Pres ence] in Blood by Automated countOrdered By: Skip Soto on 06-03-2023 Nucleated RBC Auto Ql (Bld) 0.2 /100{WBC} 0-0.5 [facility] Partial Thromboplastin Timeo n 06-03-2023 aPTT Coag (Bld) [Time] 28.4 s Normal 25.1-36.5 [facility] Comment on above: Result Comment: A he matocrit value greater than 55% may lead to inaccurate results in coagulation testing. Patients having hematocrit values >55% require a special collection tube for coagulation studies. Please contact the laboratory at [phone] for redraw instructions. PERFORMED BY: [place] [address] PATHOLOGIST LATIN DANCER SUMAN NICHOLSON M.D. Performed By: #### C USTOOL #### [address] Platelet mean volume Auto (B ld) [Entitic vol]Ordered By: Skip Soto on 06-03-2023 Platelet mean volume (Bld) [Entitic vol] 8.3 fL 6.3-10.7 [facility] Platelets Auto (Bld) [#/Vol] Ordered By: Skip Soto on 06-03-2023 Platelets (Bld) [#/Vol] 256 10*3/uL 150-450 [facility] Potassium [Moles/volume] in Serum or PlasmaOrdered By: Skip Soto on 06-03-2023 Potassium [Moles/Vol] 3.9 mmol/L 3.5-5.1 [facility] Protein Auto test strip (U) [Mass/Vol]Ordered By: Skip Soto on 06-03-2023 Protein (U) [Mass/Vol] Negative Negative [facility] Protein [Mass/volume] in Ser um or PlasmaOrdered By: Skip Soto on 06-03-2023 Protein [Mass/Vol] 7.0 g/dL 6.4-8.9 [facility] Prothrombin Time INRon 06-03 INR Coag (PPP) [Relative time] 0.9 {INR} Normal [facility] Comment on above: Result Comment: INR Therapeutic Range A) Pre- and Peroperative OAT started two weeks before surgery. NOT HIP SURGERY: 1.5 - 2.5 HIP SURGERY: 2 - 3 B) Primary and secondary prevention of venous THROMBOSIS: 2 - 3 C) Active venous thrombosis, pulmonary embolism and prevention of recurrent venous thrombosis: 2 - 3 D) Prevention of arterial thromboembolism including patients with mechanical heart valves: 3 - 4.5 Performed By: #### C USTOOL #### [facility] [address] [place] [id number] [facility] PT Coag (PPP) [Time] 10.9 s Normal 9.0-12.9 [facility] Comment on above: Result Comment: A he matocrit value greater than 55% may lead to inaccurate results in coagulation testing. Patients having hematocrit values >55% require a special collection tube for coagulation studies. Please contact the laboratory at [phone] for redraw instructions. Performed By: #### C USTOOL #### [facility] [address] [place] [id number] [facility] Prothrombin time (PT)Ordered By: Skip Soto on 06-03-2023 PT Coag (PPP) [Time] 10.9 s 9.0-12.9 [facility] Comment on above: A hematocrit value g reater than 55% may lead to inaccurate results in coagulation testing. Patients having hematocrit values >55% require a special collection tube for coagulation studies. Please contact the laboratory at [phone] for redraw instructions. RBC Auto (Bld) [#/Vol]Ordere d By: Skip Soto on 06-03-2023 RBC (Bld) [#/Vol] 4.70 10*6/uL 3.60-5.00 [facility] Serum or plasma albumin/glob ulin mass ratioOrdered By: Skip Soto on 06-03-2023 Albumin/Globulin [Mass ratio] 1.6 {ratio} [facility] Serum or plasma anion gap de terminationOrdered By: Skip Soto on 06-03-2023 Anion gap [Moles/Vol] 14.5 mmol/L 6.0-15.0 [facility] Serum or plasma non-glucuron idated bilirubin measurement (mass/volume)Ordered By: Skip Soto on 06-03-2023 Bilirubin.indirect [Mass/Vol] 0.4 mg/dL [facility] Sodium [Moles/volume] in Ser um or PlasmaOrdered By: Skip Soto on 06-03-2023 Sodium [Moles/Vol] 142 mmol/L 136-145 [facility] Specific gravity Auto test s trip (U) [Rel density]Ordered By: Skip Soto on 06-03-2023 Specific gravity (U) [Rel density] > 1.050 1.001-1.03 0 [facility] Urea nitrogen [Mass/volume] in Serum or PlasmaOrdered By: Skip Soto on 06-03-2023 Urea nitrogen [Mass/Vol] 8 mg/dL 7-25 [facility] Urinalysison 06-03-2023 Appearance (U) Clear Normal Clear [facility] Comment on above: Order Comment: Name Collection Type:: Clean-Voided Midstream Performed By: #### L ACTO SWBC #### [facility] [address] [place] [address] [place] #### CALPROTECT #### [facility] , Bilirubin,Urine Negative Normal Negative [facility] Comment on above: Order Comment: Name Collection Type:: Clean-Voided Midstream Performed By: #### L ACTO SWBC #### [facility] [address] [place] [address] [place] #### CALPROTECT #### [facility] , Color (U) Yellow Normal Yellow [facility] Comment on above: Order Comment: Name Collection Type:: Clean-Voided Midstream Performed By: #### L ACTO SWBC #### [facility] [address] [place] [address] #### CALPROTECT #### [facility] , Glucose Ql (U) Normal Normal Normal [facility] Comment on above: Order Comment: Name Collection Type:: Clean-Voided Midstream Performed By: #### L ACTO SWBC #### [facility] [address] [place] [address] #### CALPROTECT #### [facility] , Ketones Ql (U) Negative Normal Negative [facility] Comment on above: Order Comment: Name Collection Type:: Clean-Voided Midstream Performed By: #### L ACTO SWBC #### [facility] [address] [place] [address] #### CALPROTECT #### [facility] , Leukocyte esterase Test strip Ql (U) Negative Normal Negative [facility] Comment on above: Order Comment: Name Collection Type:: Clean-Voided Midstream Performed By: #### L ACTO SWBC #### [facility] [address] [place] [address] #### CALPROTECT #### [facility] , Nitrite,Urine Negative Normal Negative [facility] Comment on above: Order Comment: Name Collection Type:: Clean-Voided Midstream Performed By: #### L ACTO SWBC #### [facility] [address] [place] [address] #### CALPROTECT #### [facility] , Occult Blood,Urine Negative Normal Negative [facility] Comment on above: Order Comment: Name Collection Type:: Clean-Voided Midstream Result Comment: PERF ORMED BY: [place] [address] PATHOLOGIST LATIN DANCER SUMAN NICHOLSON M.D. Performed By: #### L ACTO SWBC #### [facility] [address] [place] [address] #### CALPROTECT #### [facility] , pH (U) 5.5 [pH] Normal 5.0-9.0 [facility] Comment on above: Order Comment: Name Collection Type:: Clean-Voided Midstream Performed By: #### L ACTO SWBC #### [address] #### CALPROTECT #### [facility] , Protein,Urine Negative Normal Negative [facility] Comment on above: Order Comment: Name Collection Type:: Clean-Voided Midstream Performed By: #### L ACTO SWBC #### [address] #### CALPROTECT #### [facility] , Specificy [place],Urine > 1.050 High 1.001-1.03 0 [facility] Comment on above: Order Comment: Name Collection Type:: Clean-Voided Midstream Performed By: #### L ACTO SWBC #### [address] #### CALPROTECT #### [facility] , Urobilinogen,Urine Normal Normal Normal [facility] Comment on above: Order Comment: Name Collection Type:: Clean-Voided Midstream Performed By: #### L ACTO SWBC #### [facility] [address] [place] [address] [place] #### CALPROTECT #### [facility] , Urine clarity by refractomet ry automatedOrdered By: Skip Soto on 06-03-2023 Clarity Refractometry automated (U) Clear Clear [facility] Urine glucose measurement by automated test strip (mass/volume)Ordered By: Skip Soto on 06-03-2023 Glucose Auto test strip (U) [Mass/Vol] Normal mg/dL Normal [facility] Urine hemoglobin detection b y automated test stripOrdered By: Skip Soto on 06-03-2023 Hemoglobin Auto test strip Ql (U) Negative Negative [facility] Urine leukocyte esterase det ection by automated test stripOrdered By: Skip Soto on 06-03-2023 Leukocyte esterase Auto test strip Ql (U) Negative Negative [facility] Urobilinogen Auto test strip (U) [Mass/Vol]Ordered By: Skip Soto on 06-03-2023 Urobilinogen (U) [Mass/Vol] Normal mg/dL Normal [facility] WBC Auto (Bld) [#/Vol]Ordere d By: Skip Soto on 06-03-2023 WBC (Bld) [#/Vol] 7.0 10*3/uL 3.8-11.6 [facility] pH Auto test strip (U)Ordere d By: Skip Soto on 06-03-2023 pH (U) 5.5 [pH] 5.0-9.0 [facility] Quick Strepon 05-25-2023 S. pyogenes Org specific cx Ql (Throat) Negative [facility] Other Quick Strep [facility] [facility] CNPNon 05-07-[address] [facility] BASIC METABOLIC PANELon 04-14 Anion gap [Moles/Vol] 11 mmol/L Normal 10 - 20 [facility] Comment on above: Performed By: #### B MP #### [facility] [address] [place] [address] Calcium [Mass/Vol] 9.1 mg/dL Normal 8.6 - 10.3 [facility] Comment on above: Performed By: #### B MP #### [facility] [address] [place] [address] Chloride [Moles/Vol] 106 mmol/L Normal 98 - 107 [facility] Comment on above: Performed By: #### B MP #### [address] [place] [address] Creatinine [Mass/Vol] 0.57 mg/dL Normal 0.50 - 1.05 [facility] Comment on above: Performed By: #### B MP #### [address] [address] eGFR FEMALE >90 Normal >90 [facility] Comment on above: Result Comment: CALC ULATIONS OF ESTIMATED GFR ARE PERFORMED USING THE 2020 CKD-EPI STUDY REFIT EQUATION WITHOUT THE RACE VARIABLE FOR THE IDMS-TRACEABLE CREATININE METHODS. https://jasn.asnjournals.org/content/early/ASN.478681 4202 Performed By: #### B MP #### [address] [address] Glucose [Mass/Vol] 86 mg/dL Normal 74 - 99 [facility] Comment on above: Performed By: #### B MP #### [address] [address] HCO3 (Bld) [Moles/Vol] 27 mmol/L Normal 21 - 32 [facility] Comment on above: Performed By: #### B MP #### [address] [address] Potassium [Moles/Vol] 4.2 mmol/L Normal 3.5 - 5.3 [facility] Comment on above: Performed By: #### B MP #### [address] [address] Sodium [Moles/Vol] 140 mmol/L Normal 136 - 145 [facility] Comment on above: Performed By: #### B MP #### [address] [address] Urea nitrogen [Mass/Vol] 10 mg/dL Normal 6 - 23 [facility] Comment on above: Performed By: #### B MP #### [address] [address] CBC AND DIFFERENTIALon 04-28 % AUTOMATED IMMATURE GRAN 0.1 % Normal 0.0 - 0.9 [facility] Comment on above: Result Comment: Yanni ture Granulocyte Count (IG) includes promyelocytes, myelocytes and metamyelocytes but does not include bands. Percent differential counts (%) should be interpreted in the context of the absolute cell counts (cells/L). Performed By: #### C BCDF #### [address] [address] Basophils (Bld) [#/Vol] 0.06 10*3/uL Normal 0.00 - 0.10 [facility] Comment on above: Performed By: #### C BCDF #### [address] [address] Basophils/100 WBC (Bld) 0.9 % Normal 0.0 - 2.0 [facility] Comment on above: Performed By: #### C BCDF #### [address] [address] Eosinophils (Bld) [#/Vol] 0.12 10*3/uL Normal 0.00 - 0.70 [facility] Comment on above: Performed By: #### C BCDF #### [address] [address] Eosinophils/100 WBC (Bld) 1.8 % Normal 0.0 - 6.0 [facility] Comment on above: Performed By: #### C BCDF #### [address] [address] Erythrocyte distribution width (RBC) [Ratio] 13.4 % Normal 11.5 - 14.5 [facility] Comment on above: Performed By: #### C BCDF #### [address] [address] Hematocrit (Bld) [Volume fraction] 40.5 % Normal 36.0 - 46.0 [facility] Comment on above: Performed By: #### C BCDF #### [address] [address] Hemoglobin (Bld) [Mass/Vol] 13.0 g/dL Normal 12.0 - 16.0 [facility] Comment on above: Performed By: #### C BCDF #### [address] [address] Lymphocytes (Bld) [#/Vol] 2.61 10*3/uL Normal 1.20 - 4.80 [facility] Comment on above: Performed By: #### C BCDF #### [address] [address] Lymphocytes/100 WBC (Bld) 38.7 % Normal 13.0 - 44.0 [facility] Comment on above: Performed By: #### C BCDF #### [address] [address] MCHC (RBC) [Mass/Vol] 32.1 g/dL Normal 32.0 - 36.0 [facility] Comment on above: Performed By: #### C BCDF #### [address] [address] MCV (RBC) [Entitic vol] 90 fL Normal 80 - 100 [facility] Comment on above: Performed By: #### C BCDF #### [address] [address] Monocytes (Bld) [#/Vol] 0.51 10*3/uL Normal 0.10 - 1.00 [facility] Comment on above: Performed By: #### C BCDF #### [address] [address] Monocytes/100 WBC (Bld) 7.6 % Normal 2.0 - 10.0 [facility] Comment on above: Performed By: #### C BCDF #### [address] [address] Neutrophils (Bld) [#/Vol] 3.44 10*3/uL Normal 1.20 - 7.70 [facility] Comment on above: Performed By: #### C BCDF #### [address] [address] Neutrophils/100 WBC (Bld) 50.9 % Normal 40.0 - 80.0 [facility] Comment on above: Performed By: #### C BCDF #### [address] [address] NUCLEATED RBC 0.0 /100 WBC Normal 0.0 - 0.0 [facility] Comment on above: Performed By: #### C BCDF #### [address] [address] Platelets (Bld) [#/Vol] 255 10*3/uL Normal 150 - 450 [facility] Comment on above: Performed By: #### C BCDF #### [address] [address] RBC 4.52 x10E12/L Normal 4.00 - 5.20 [facility] Comment on above: Performed By: #### C BCDF #### [address] [address] WBC (Bld) [#/Vol] 6.8 10*3/uL Normal 4.4 - 11.3 [facility] Comment on above: Performed By: #### C BCDF #### [address] [address] CORONAVIRUS 2019 BY PCRon SARS-CoV-2 (COVID-19) RNA MEAGAN+probe Ql (Unsp spec) Not detected Normal Not Detected [facility] Comment on above: Result Comment: . This test has received FDA Emergency Use Authorization (EUA) and has been verified by [facility]. This test is only authorized for the duration of time that circumstances exist to justify the authorization of the emergency use of in vitro diagnostic tests for the detection of SARS-CoV-2 virus and/or diagnosis of COVID-19 infection under section 564(b)(1) of the Act, 21 U.S.C. 360bbb-3(b)(1), unless the authorization is terminated or revoked sooner. [facility] is certified under CLIA-88 as qualified to perform high complexity testing. Testing is performed in the [facility] laboratory located at [address] [place] [address]. SARS-CoV-2/Flu/RSV Multiplex Test: Fact sheet for providers: https://www.fda.gov/media/150717/download Fact sheet for patients: https://www.fda.gov/media/280982/download Performed By: #### C OV19 #### [address] [place] [address] Lab Specimen Source Nasal, Nasopharyngeal Normal [facility] Comment on above: Performed By: #### C OV19 #### [address] [place] [address] Covid 19 Resultson 3 SARS-CoV-2 (COVID-19) RNA MEAGAN+probe Ql (Unsp spec) NEGATIVE COVID-19 Test Coronaviruses are common world-wide and are the cause of many common colds. SARS-COV2 is a new coronavirus that began circulating worldwide in 2019 so we are calling it COVID-19. It has been estimated that four out of five patients with COVID-19 will recover at home without the need for medical attention. Symptoms of COVID-19 may include cough, fever, shortness of breath, loss of taste or smell and other flu-like symptoms including chills, sore muscles, sore throat, and headache. Severe illness is more common in older people and people with other health problems such as high blood pressure, obesity, and immune system problems. If the test is positive, you have COVID-19. You will be contacted by the ordering physicians office and instructed to remain on home isolation, in accordance with CDC guidelines. You may also be contacted by the [facility] to see if any of your close contacts may have been exposed to the virus and need to quarantine. If the test is negative, you likely do not have COVID-19 at this time, but you still may have a different illness that can spread to other people (like Influenza, or the Flu) and could still be at risk for getting COVID-19. We recommend that you stay away from other people to limit the spread of illness until your symptoms are improving and you are fever-free for 24 hours without the use of fever lowering medications such as acetaminophen or ibuprofen. No test is 100% accurate so if you are still concerned you may have COVID-19, talk to your doctor about the need to continue to stay away from others. Medicines Unless your provider told you not to use the following: Acetaminophen (Tylenol and others) is generally safe. Anti-inflammatory medications, such as Ibuprofen (Advil or Motrin) or Naproxen (Aleve) can also be used. Tzzu-tec-psgzmhe cough and cold medicines can be used according to the instructions on the package. Some sglz-cwa-jkkchpu medicines also contain acetaminophen. Make sure you are not taking more than your recommended dose. For those not hospitalized, there is no specific treatment available for this illness. Antibiotics do not treat Coronaviruses. Follow-Up Follow up with your doctor by scheduling a virtual visit or consider follow-up at one of our urgent care fever clinics. If you are having difficulty breathing, or are very weak and having difficulty standing, this is a medical emergency. Call 911 or have someone take you to the nearest emergency room immediately. If possible, wear a facemask. Additional guidance from the CDC for patients who tested POSITIVE for COVID-19 How to isolate: Isolate yourself in a specific room at home and limit your contact with others. Use a separate bathroom from other members of the household, when possible. Leave home only to get essential medical care. Do not go to work, school or public areas. Avoid using public transportation, ride-sharing, or taxis. Restrict contact with pets and other animals. If you must care for your pet or be around animals while you are sick, wash your hands before and after your interaction and wear a facemask. Make sure that shared spaces in the home have good airflow, such as by an air conditioner or an opened window, weather permitting. Personal Hygiene Procedures: Wear a face mask when in the same room as other people or pets. If a face mask interferes with your breathing, others should wear a mask when sharing space with you. Frequent hand-washing: wash your hands with soap and water for at least 20 seconds. If soap and water are not available, use alcohol-based hand brush sander. Avoid touching your eyes, nose, and mouth with unwashed hands. Household Hygiene Procedures: Avoid sharing personal household items such as dishes, glassware, cups, eating utensils, towels or bedding with other people or pets in your home. After use, these items should be washed with soap and hot water. Disinfect all high-touch surfaces every day with antibacterial cleaning solutions such as Lysol wipes, bleach, cleansers, etc. High-touch surfaces include tabletops, doorknobs, bathroom fixtures, toilets, phones, keyboards, tablets and bedside tables. Immediately clean any surfaces that may have blood, poop or body fluids on them, using antibacterial cleaning solutions such as Lysol wipes, bleach, cleansers, etc. If clothing or bedding come into contact with blood, poop or body fluids, they should be washed immediately. Follow the directions on the laundry detergent and clothing labels but hot water is recommended when possible. Stopping home isolation precautions: If possible, consult your doctor before stopping home isolation precautions. According to the CDC, you can discontinue home isolation precautions when you have met both of these criteria: Your fever and respiratory symptoms have been gone for 24 gideon (more content not included)... Normal [facility] HCG,BETA-QUANTITATIVEon 04-14 HCG,BETA-QUANTITATIVE 4 mIU/mL Normal [facility] Comment on above: Result Comment: . Total HCG measurement is performed using the [employer] Access Immunoassay which detects intact HCG and free beta HCG subunit. . This test is not indicated for use as a tumor marker. HCG testing is performed using a different test methodology at [facility] than other [facility]. Direct result comparison should only be made within the same method. REF VALUES NON FEMALE <5 MALES <5 Performed By: #### H CGQU #### [address] [address] HEPATIC FUNCTION PANELon Albumin [Mass/Vol] 4.1 g/dL Normal 3.4 - 5.0 [facility] Comment on above: Performed By: #### H EPFP #### [address] [address] ALP [Catalytic activity/Vol] 95 U/L Normal 33 - 110 [facility] Comment on above: Performed By: #### H EPFP #### [address] [address] ALT [Catalytic activity/Vol] 26 U/L Normal 7 - 45 [facility] Comment on above: Result Comment: Donita ents treated with Sulfasalazine may generate falsely decreased results for ALT. Performed By: #### H EPFP #### [address] [address] AST [Catalytic activity/Vol] 27 U/L Normal 9 - 39 [facility] Comment on above: Performed By: #### H EPFP #### [address] [address] Bilirubin [Mass/Vol] 0.4 mg/dL Normal 0.0 - 1.2 [facility] Comment on above: Performed By: #### H EPFP #### [address] [address] Bilirubin.indirect [Mass/Vol] 0.1 mg/dL Normal 0.0 - 0.3 [facility] Comment on above: Performed By: #### H EPFP #### [address] [address] Protein [Mass/Vol] 6.3 g/dL Low 6.4 - 8.2 [facility] Comment on above: Performed By: #### H EPFP #### [address] [address] LACTATEon 04-28-2023 Lactate [Moles/Vol] 0.9 mmol/L Normal 0.4 - 2.0 [facility] Comment on above: Result Comment: Latia puncture immediately after or during the administration of Metamizole may lead to falsely low results. Testing should be performed immediately prior to Metamizole dosing. Performed By: #### L ACT #### [address] [address] LIPASEon 04-28-2023 Lipase [Catalytic activity/Vol] 6 U/L Low 9 - 82 [facility] Comment on above: Result Comment: Latia puncture immediately after or during the administration of Metamizole may lead to falsely low results. Testing should be performed immediately prior to Metamizole dosing. S-sdvwsu-t-benzoquinone imine (metabolite of Acetaminophen) will generate erroneously low results in samples for patients that have taken toxic doses of acetaminophen. Performed By: #### L IPAS #### [address] [place] [address] Provider Note - ED v3on 04-14 Provider Note - ED v3 Provider Note: Results/Vital Signs: Pediatric Clinical Scoring (ADWOA) is no recent ADWOA charted on this account Chart Review: ED NOTES ED NOTES: HPI: Melina is a 47-year-old female who presents to the ED for complaint of abdominal pain and vomiting. The pain started around 4 to 5 PM yesterday. Has symptoms associated with fever, nausea, night sweats, weakness, headache, nonbloody diarrhea and vomiting. She endorses her pain radiates to the back with 9 of 10 intensity. The patient started Xifaxan for treatment of small intestine bacterial overgrowth yesterday. The patient endorses unintentional weight loss of up to 10 pounds in the last 2 weeks. The patient denies chest pain, shortness of breath, dizziness, or syncope. Patient had the colonoscopy and endoscopy a week ago for follow-up on gastric bypass revision. 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 Past surgical history: Gastric bypass Allergies: Number pectin, Toradol, and hives with any painkiller. Social history: Denies smoking, alcohol or drug use. Family history: Hypertension, colon cancer, pancreatic cancer in her mom. ------ REVIEW OF SYSTEMS Noted PHYSICAL EXAM Noted --- Medical Decision Making/ED course Patient is a 47-year-old female who presents with complaint of abdominal pain and vomiting. Pertinent past medical history: Gastric bypass, small intestine bacterial overgrowth, and chronic pancreatitis. Per my independent interpretation of labs/imaging: Labs and CT scan were ordered to rule out cardiac etiology, perforated bowel, pancreatic pseudocyst, pancreatic tumor, and kidney stone. I have reviewed and interpreted labs/imaging. Labs and CT scan results showed no acute findings, urinalysis does show evidence of UTI. Consults: No consults requested Case was discussed with the attending, Mike Caro. Shared decision making was done for decision to discharge. Disposition: The patient received morphine for pain control, Zofran for nausea and vomiting, and Benadryl for reaction to pain medication. The patient received a dose of Keflex and a 5-day prescription of for treatment of the UTI. Patient was discharged with instructions to follow-up with primary care. Linda Cartwright M.D. Emergency Medicine, PGY-1 HISTORY OF PRESENTING ILLNESS MELINA is a 47 year old Female and was seen by me at 28-Apr-2023 10:27 for a chief complaint of abdominal pain . Other complaints include: N/V(1). Triage Information: Most recent Vital Sign Value Date Temp (F): 97.8 04-28-2023 10:20 Temp (C): 36.6 04-28-2023 10:20 Heart Rate (beats/min): 70 04-28-2023 10:20 Respirations (breaths/min): 18 04-28-2023 10:20 SpO2 (%): 100 04-28-2023 10:20 BP Systolic (mm Hg): 142 04-28-2023 10:20 BP Diastolic (mm Hg): 80 04-28-2023 10:20 PAST MEDICAL HISTORY ALLERGIES/INTOLERANCES: Allergy Allergen: Tramadol Hydrochloride Type: Drug Reaction: Facial Swelling Allergen: Toradol Type: Drug Reaction: Unknown Allergen: gabapentin Type: Drug Reaction: Throat Swelling Allergen: Tape - Adhesive, Bandaids, Paper Type: Environment Reaction: Other Allergen: Aspartame Type: Food Reaction: Other HEALTH HISTORY: No documented data. OUTPATIENT MEDICATIONS: Home Medications Review Status for Reconciliation: Not Done Med Status: Patient Currently Takes Medications Drug Name: ALPRAZolam 0.5 mg oral tablet Instructions: 1 tab(s) orally once a day, As Needed - for anxiety Drug Name: promethazine 6.25 mg/5 mL oral syrup Instructions: 10 milliliter(s) orally every 6 hours, As Needed - for nausea and vomiting Drug Name: diphenhydrAMINE 12.5 mg oral tablet, chewable Instructions: 2 tab(s) orally every 6 hours, As Needed with oxycodone Drug Name: levothyroxine 50 mcg (0.05 mg) oral tablet Instructions: 1 tab(s) orally once a day (in the morning) Drug Name: cyanocobalamin 1000 mcg/mL injectable solution Instructions: 1 milliliter(s) intramuscularly 2 times a week on and Saturdays Drug Name: dextroamphetamine-amphetam ine 20 mg oral tablet Instructions: 1 tab(s) orally 2 times a day Drug Name: oxyCODONE 5 mg/5 mL oral solution Instructions: 5 milliliter(s) orally every 6 hours, As Needed -pain - .Patient Location - for severe pain Drug Name: sucralfate 1 g/10 mL oral suspension Instructions: 10 milliliter(s) orally 4 times a day -.Patient Location Drug Name: orphenadrine 100 mg oral tablet, extended release Instructions: 1 tab(s) orally 2 times a day Drug Name: pantoprazole 40 mg oral granule, delayed release Instructions: 1 each orally 2 times a day -.Patient Location Drug Name: ondansetron 8 mg oral tablet, disintegrating Instructions: 1 tab(s) ora (more content not included)... Normal [facility] Risk Screen - Adult Emergenc yon 04-28-2023 Risk Screen - Adult Emergency Preferred Language: Preferred Language: Preferred Language for Discussing Health Care (patient/designee)Serbian Patient Preferred Pharmacy: Patient Preferred Pharmacy Statement: I have reviewed and updated the patient's preferred pharmacy selection for today's visit. Advanced Directives: Advance Directive/DNRno Family Violence Adult: Abuse Screen: Are you or have you been threatened or abused physically, emotionally, or sexually by anyoneno Learning Assessment (Patient): Learning Assessment (Patient): Patient is Able to be Assessed for Learningyes Factors Influencing Readiness to Learnacuteness of illness Factors that Impact Ability to Learnnone Devices/Methods Used to Communicatenone Learning Preferencesverbal instruction Cultural Considerationsnone Developmental Considerationsnone Anabaptist Considerationsnone Learning Assessment (Other Learner): Learning Assessment (Other Learner): Other learner availableno Pressure Injury/TB/Substance: Pressure Injury: Pressure Injury Present on Admissionno Do you have a coughno Smoking Statusnever smoker Alcohol Usedenies Drug Usedenies Resources Offerednot appropriate Admission Risk Screen: Significant IndicatorsComplete CAGE: CAGE: Is this an injured patient at a Trauma Center ([facility]/Thomas/Gissell/Tiffanie/Khoa Ronquillo/Sabrina): no Electronic Signatures: Demetrius Mcdaniel (RN) (Signed 28-Apr-2023 10:28) Authored: Preferred Language, Patient Preferred Pharmacy, Advanced Directives, Family Violence Adult, Learning Assessment (Patient), Learning Assessment (Other Learner), Pressure Injury/TB/Substance, Pressure Injury, CAGE Last Updated: 28-Apr-2023 10:28 by Demetrius Mcdaniel (RN) Normal [facility] TROPONIN I, HIGH SENSITIVITY on 04-28-2023 TROPONIN I, HIGH SENSITIVITY <3 Normal 0 - 13 [facility] Comment on above: Result Comment: . Less than 99th percentile of normal range cutoff- Female and children under 18 years old <14 ng/L; Male <21 ng/L: Negative Repeat testing should be performed if clinically indicated. . Female and children under 18 years old 14-50 ng/L; Male 21-50 ng/L: Consistent with possible cardiac damage and possible increased clinical risk. Serial measurements may help to assess extent of myocardial damage. . >50 ng/L: Consistent with cardiac damage, increased clinical risk and myocardial infarction. Serial measurements may help assess extent of myocardial damage. . NOTE: Children less than 1 year old may have higher baseline troponin levels and results should be interpreted in conjunction with the overall clinical context. . NOTE: Troponin I testing is performed using a different testing methodology at [facility] than at other [facility]. Direct result comparisons should only be made within the same method. Performed By: #### L IPAS #### [facility] [address] [place] [id number] Triage - EDon 04-28-2023 Triage - ED Quick Triage: Are You no Have You Given In The Last 6 Weeksno Are You Currently Breastfeedingno The patient and/or guardian verbally acknowledges placement for services into the following (when Urgent Care Service hours are operating):emergency department Chart Review: PRIMARY ASSESSMENT MELINA DÍAZ's primary assessment is Within Defined Limits. The airway is open and patent. Breathing spontaneous and unlabored with clear breath sounds bilaterally. Circulation is normal with good peripheral pulses. Skin is warm and dry and color is normal for race. 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 Onset of the Complaint: 27-Apr-2023 Other Complaints: N/V Triage Date/Time: 28-Apr-2023 10:15 ELAINE: 3 Pain Rating (0-10): 8 = Severe Vital Signs: Temperature: 97.8F ( 36.6C) taken temporal Blood Pressure: 142/80 Mean: Heart Rate: 70 Respiratory Rate: 18 Pulse Oximetry: 100% on room air, no respiratory support. Height: 5 feet 8.00 inches. 172.7 CM Weight: 189.5 pounds. Calculated 86.0 kg. 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 Risk Screens Suicide Risk Screen In the Past Month: Have you wished you were or wished you could go to sleep and not wake up no In the Past Month: Have you had any actual thoughts of killing yourself no In Your Lifetime: Have you ever done anything, started to do anything, or prepared to do anything to end your life no Suarez Fall Scale Screening Has the patient fallen before (or is the patient in the ED as a result of a fall) has not had a fall Does the patient have an impaired gait does not have impaired gait Is the patient cognitively impaired not cognitively impaired Interventions: Suarez Fall Interventions: LOW INTERVENTIONS: *patient oriented to surroundings and call system, * patient/family falls education completed and documented, *patients fall status communicated during bedside handoff, *whiteboard updated, *mode of toileting discussed with patient, *bed in low position with brakes locked, *call light in reach, * non-skid footwear TRAVEL HISTORY Travel History Coronavirus Screening: positive for symptoms Travel Exposure History: NO travel to International locations in the past 30 days PAIN Pain Scale Used: TAE Pain Rating (0-10): 8 = Severe Past Medical History: Past Medical History Reviewedyes Electronic Signatures: Demetrius Mcdaniel (PIETRO) (Signed 28-Apr-2023 10:22) Entered: Risk Screens, Pain, Arrival, ABCD, Travel History, Chart Review, Scores, Past Medical History Authored: Quick Triage, Risk Screens, Pain, Arrival, ABCD, Travel History, Chart Review, Scores, Past Medical History Last Updated: 28-Apr-2023 10:22 by Demetrius Mcdaniel (PIETRO) Normal [facility] UA MICROSCOPICon 04-28-2023 BACTERIA 1+ /HPF Abnormal [facility] Comment on above: Performed By: #### U AMIC #### [address] [address] RBC 0-5 Normal 0-5 [facility] Comment on above: Performed By: #### U AMIC #### [address] [address] SQUAMOUS EPITH. CELLS 1 /HPF Normal [facility] Comment on above: Performed By: #### U AMIC #### [address] [address] URIC ACID CRYSTAL 2+ /HPF Abnormal [facility] Comment on above: Performed By: #### U AMIC #### [address] [address] WBC 5-20 Abnormal 0-5 [facility] Comment on above: Performed By: #### U AMIC #### [address] [address] URINALYSISon 04-28-2023 Appearance (U) HAZY Normal CLEAR [facility] Comment on above: Performed By: #### U A #### [address] [address] Bilirubin Ql (U) Negative Normal NEGATIVE [facility] Comment on above: Performed By: #### U A #### [address] [address] Color (U) YELLOW Normal STRAW,YELL OW [facility] Comment on above: Performed By: #### U A #### [address] [address] Glucose Ql (U) Negative Normal NEGATIVE [facility] Comment on above: Performed By: #### U A #### [address] [address] Hemoglobin Ql (U) Negative Normal NEGATIVE [facility] Comment on above: Performed By: #### U A #### [address] [address] Ketones Ql (U) Negative Normal NEGATIVE [facility] Comment on above: Performed By: #### U A #### [address] [address] Leukocyte esterase Test strip Ql (U) Negative Normal NEGATIVE [facility] Comment on above: Performed By: #### U A #### [address] [address] Nitrite Ql (U) Positive Abnormal NEGATIVE [facility] Comment on above: Performed By: #### U A #### [address] [address] pH (U) 5.0 [pH] Normal 5.0 - 8.0 [facility] Comment on above: Performed By: #### U A #### [address] [address] Protein Ql (U) Negative Normal NEGATIVE [facility] Comment on above: Performed By: #### U A #### [address] [address] Specific gravity (U) [Rel density] 1.060 High 1.005 - 1.035 [facility] Comment on above: Performed By: #### U A #### [address] [address] Urobilinogen (U) [Mass/Vol] mg/dL Normal 0.0 - 1.9 [facility] Comment on above: Performed By: #### U A #### [address] [address] ANES POSTPROC EVALon 023 ANES POSTPROC EVAL HNO ID: [id number] Author: Kyree Darden MD Service: Anesthesiology Author Type: Physician Type: Anesthesia Postprocedure Evaluation Filed: 04/23/2023 10:52 AM Note Text: POST ANESTHESIA EVALUATION NOTE : 1975 Procedure Summary Date: 04/23/23 Room / Location: Procedures Anesthesia Start: 730 Anesthesia Stop: 756 Procedure: COLONOSCOPY DIAGNOSTIC Diagnosis: (Chronic diarrhea) Scheduled Providers: Rene Peter MD; Kyree Darden MD; Xin Mcgill APRN.PRODUCTION ASSOCIATE; Esme Barron RN Responsible Provider: Kyree Darden MD Anesthesia Type: MAC ASA Status: 3 Anesthesia Type: MAC Last Vitals Vitals Value Taken Time BP 125/69 04/23/23 0900 Temp 36.5 ?C (97.7 ?F) 04/23/23 09 Pulse 57 04/23/23 0900 Resp 18 04/23/23 09 SpO2 96 % 04/23/23 09 Post Anesthesia Patient Status Patient Evaluation: PACU. PACU/ICU Patient Condition: stable. Anticipated Disposition: inpatient floor planned admission. Neurological Status: aware and responsive. Pulmonary Status: breathing comfortably on room air Airway Control: returned to baseline unsupported. Cardiovascular Status: stable. Pain Management: clinically adequate - multimodal analgesia pain management approach Postoperative Hydration: acceptable. Intraoperative Events: no significant anesthesia events Recommendation: continue current plan of care and further care per PACU/ICU/floor team. Anesthesia Observations No Documentation SIGNATURE: Kyree Darden MD PATIENT NAME: Melina Díaz DATE: April 23, 2023 TIME: 10:52 AM CSN: [id number] [facility] ANES PRE-OPon 04-23-2023 ANES PRE-OP HNO ID: [id number] Author: Kyree Darden MD Service: Anesthesiology Author Type: Physician Type: Anesthesia Preprocedure Evaluation Filed: 04/23/2023 7:11 AM Note Text: ANESTHESIOLOGY DAY OF SURGERY NOTE : 1975 Procedure Information Date/Time: 04/23/23729 Scheduled providers: Rene Peter MD; Kyree Darden MD; Xin Mcgill APRN.PRODUCTION ASSOCIATE; Esme Barron RN Procedure: COLONOSCOPY DIAGNOSTIC Location: Procedures Estimated body mass index is 29.77 kg/m? as calculated from the following: Height as of this encounter: 172.7 cm (5' 8 ). Weight as of this encounter: 88.8 kg (195 lb 12.3 oz). Most recent hematocrit and potassium results: Hematocrit 33.9 04/23/2023 Potassium 3.6 04/22/2023 Relevant Problems ENDO (+) Acquired hypothyroidism GI (+) Jarred ulcer, chronic NEURO-PSYCH (+) History of Clostridium difficile colitis I - PHYSICAL EVALUATION AIRWAY Patient intubated: No. Tracheostomy tube not present Mallampati: II. TM distance: >3 FB. Neck ROM: full ROM without neurological symptoms. Mouth opening: adequate. Short neck: no. Thick neck: no DENTAL Normal dental observations. Dental findings: teeth intact. Additional exam findings: no II - ANESTHESIA PLAN ASA Score: 3 Anesthetic Plan: MAC NPO Status: adequate Beta Gary Monitoring Plan Monitoring plan: Standard ASA. Post Procedure Analgesic Plan Postoperative analgesic plan: parenteral or oral opioids and multimodal analgesia. Informed Consent Anesthetic risks, benefits, alternatives, personnel and consent discussed: yes. Patient / Responsible Democrat agrees to proceed: yes Patient / Surrogate agrees to blood products: blood products not planned DNR status not reviewed with patient and/or family prior to surgery. Significant changes in the patient condition since the History and Physical, not otherwise documented in primary service progress note: no. Potential Anesthesia issues that may suggest increased risk of complications or contraindication to planned procedure: none. Vitals Value Taken Time BP 128/78 04/23/23 0659 Pulse Resp 16 04/23/23 0659 Temp 36.1 ?C (97 ?F) 04/23/23 0659 SpO2 98 % 04/23/23 0659 Facility-Administered Medications as of 04/23/2023 Medication Dose Route Frequency - [COMPLETED] HYDROmorphone 0.5 mg injection (DILAUDID) 0.5 mg INTRAVENOUS ONCE - [Held on Transfer] diphenhydrAMINE 12.5 mg injection (BENADRYL) 12.5 mg INTRAVENOUS q 6 H PRN - [Held on Transfer] ALPRAZolam 0.5 mg tab(s) (XANAX) 0.5 mg ORAL AT BEDTIME PRN - [Held on Transfer] pantoprazole 40 mg injection (PROTONIX) 40 mg INTRAVENOUS BID AC (0600/1600) - [Held on Transfer] levothyroxine 50 mcg tab(s) (SYNTHROID) 50 mcg ORAL DAILY (6 AM) - [Held on Transfer] NaCl 0.9% iv flush bag 20 mL INTRAVENOUS PRN - [Held on Transfer] lactated ringers iv infusion 100 mL/hr INTRAVENOUS CONTINUOUS - [Held on Transfer] acetaminophen 650 mg tab(s) (TYLENOL) 650 mg ORAL q 6 H PRN - [Held on Transfer] prochlorperazine 5 mg injection (COMPAZINE) 5 mg INTRAVENOUS q 4 H PRN - [COMPLETED] potassium chloride iv piggyback 20 mEq/100 mL 20 mEq INTRAVENOUS ONCE - [COMPLETED] polyethylene glycol 3350 238 g oral powder 238 g ORAL ONCE - [COMPLETED] bisacodyl EC 10 mg tab(s) (DULCOLAX) 10 mg ORAL ONCE - [COMPLETED] SUMAtriptan 25 mg tab(s) (IMITREX) 25 mg ORAL ONCE - [Held on Transfer] oxyCODONE IR 2.5 mg tab(s) (ROXICODONE) 2.5 mg ORAL q 6 H PRN - [] iv contrast (radiology procedure) INTRAVENOUS DIRECTED PRN - [COMPLETED] NaCl 0.9% 1,000 mL iv bolus 1,000 mL INTRAVENOUS ONCE - [COMPLETED] fentaNYL 50 mcg/mL 50 mcg injection (SUBLIMAZE) 50 mcg INTRAVENOUS ONCE - [COMPLETED] ondansetron (PF) 4 mg injection (ZOFRAN) 4 mg INTRAVENOUS ONCE - [COMPLETED] fentaNYL 50 mcg/mL 50 mcg injection (SUBLIMAZE) 50 mcg INTRAVENOUS ONCE - [COMPLETED] ondansetron (PF) 4 mg injection (ZOFRAN) 4 mg INTRAVENOUS ONCE Outpatient Medications as of 04/23/2023 Medication Sig - semaglutide (OZEMPIC) 0.25 mg or 0.5 mg(2 mg/1.5 mL) pen Inject 0.5 mg subcutaneously one time a week. - pantoprazole DR (PROTONIX) 40 mg tablet Take 1 tablet by mouth twice daily before meals (0600/1600). - promethazine (PHENERGAN) 25 mg tablet Take 1 tablet by mouth every 8 hours as needed (for nausea). - cholecalciferol (VITAMIN D3) 1,000 unit tab tablet take 1 tablet by mouth once daily . BREAK OPEN AND RELEASE UNDER TONGUE FOR BEST ABSORPTION - levothyroxine (SYNTHROID) 50 mcg tablet Take 50 mcg by mouth. - ALPRAZolam (XANAX) 0.5 mg tablet Take 0.5 mg by mouth at bedtime as needed. - dextroamphetamine-amphetam ine (ADDERALL) 20 mg tablet Take 20 mg by mouth twice daily. - MULTI-VITAMIN ORAL Take 1 tablet by mouth once daily. - acetaminophen (TYLENOL) 325 mg tablet Take 2 tablets by mouth every 6 hours as needed for pain. - polyethylene glycol 3350 17 gram packet Take 1 Packet by mouth once daily. (more content not included)... Normal [facility] Basic metabolic 2000 panelon 04-23-2023 Anion gap [Moles/Vol] 8 mmol/L Low 9-18 [facility] Comment on above: Order Comment: Speci men Type: BLOOD SPECIMENOrdering Facility: [facility] Address: [address] [place] [address] Performed By: #### 2 4321-2 ####[facility], SACRAMENTOCLIA [id number] [place] [address] [place] Calcium [Mass/Vol] 8.9 mg/dL Normal 8.5-10.2 [facility] Comment on above: Order Comment: Sharoni donnie Type: BLOOD SPECIMENOrdering Facility: [facility] Address: [address] [place] [address] Performed By: #### 2 4321-2 ####[facility] LABORATORYCLIA [id number] [place] [address] [place] Chloride [Moles/Vol] 105 mmol/L Normal 97-105 [facility] Comment on above: Order Comment: Speci men Type: BLOOD SPECIMENOrdering Facility: [facility] Address: [address] [address] Performed By: #### 2 4321-2 ####[facility] LABORATORYCLIA [id number] [place] [address] [place] CO2 [Moles/Vol] 28 mmol/L Normal 22-[address] [facility] Comment on above: Order Comment: Speci men Type: BLOOD SPECIMENOrdering Facility: [facility] Address: [address] Performed By: #### 2 4321-2 ####[facility] LABORATORYCLIA [id number] [place] [address] [place] Creatinine [Mass/Vol] 0.63 mg/dL Normal 0.58-0.96 [facility] Comment on above: Order Comment: Speci men Type: BLOOD SPECIMENOrdering Facility: [facility] Address: [address] Performed By: #### 2 4321-2 ####[facility] LABORATORYIA [id number] [place] [address] [place] ESTIMATED GLOMERULAR FILTRATION RATE 111 mL/min/1.73m??? Normal >=60 [facility] Comment on above: Order Comment: Speci men Type: BLOOD SPECIMENOrdering Facility: [facility] Address: [address] [address] Result Comment: Randy mated Glomerular Filtration Rate (eGFR) is calculated using the 2020 CKD-EPI creatinine equation. This equation utilizes serum creatinine, sex, and age as parameters. The creatinine assay has traceable calibration to isotope dilution-mass spectrometry. Refer to KDIGO guidelines for clinical interpretation. In patients with unstable renal function, e.g. those with acute kidney injury, the eGFR may not accurately reflect actual GFR. Performed By: #### 2 4321-2 ####[facility] LABORATORYCLIA [id number] [place] [address] [place] Glucose [Mass/Vol] 90 mg/dL Normal 74-99 [facility] Comment on above: [facility] Comment: [facility] Type: BLOOD SPECIMENOrdering Facility: [facility] Address: [address] [address] Result Comment: The [place] [employer] (ADA) provides guidance for cutoff values for fasting glucose and random glucose. The ADA defines fasting as no caloric intake for at least 8 hours. Fasting plasma glucose results between 100 to 125 mg/dL indicate increased risk for diabetes (prediabetes). Fasting plasma glucose results greater than or equal to 126 mg/dL meet the criteria for diagnosis of diabetes. In the absence of unequivocal hyperglycemia, results should be confirmed by repeat testing. In a patient with classic symptoms of hyperglycemia or hyperglycemic crisis, random plasma glucose results greater than or equal to 200 mg/dL meet the criteria for diagnosis of diabetes. Reference: Standards of Medical Care in Diabetes 2016, [place] [employer]. Diabetes Care. 2016.39(Suppl 1). Performed By: #### 2 4321-2 ####[facility] [id number] [place] [address] [place] Potassium [Moles/Vol] 4.0 mmol/L Normal 3.7-5.1 [facility] Comment on above: Order Comment: Speci men Type: BLOOD SPECIMENOrdering Facility: [facility] Address: [address] [place] [address] Performed By: #### 2 4321-2 ####[facility] [id number] [place] [address] [place] Sodium [Moles/Vol] 141 mmol/L Normal 136-144 [facility] Comment on above: Order Comment: Sharoni men Type: BLOOD SPECIMENOrdering Facility: [facility] Address: [address] [place] [address] Performed By: #### 2 4321-2 ####[facility] [id number] [place] [address] [place] Urea nitrogen [Mass/Vol] 4 mg/dL Low 7-21 [facility] Comment on above: Order Comment: Speci men Type: BLOOD SPECIMENOrdering Facility: [facility] Address: [address] [place] [address] Performed By: #### 2 4321-2 ####[facility] CENTERIA [id number] [place] [address] [place] CASE MANAGEMon 04-23-2023 CASE MANAGEM HNO ID: [id number] Author: Tiffany Frey RN Service: Nursing Author Type: Registered Nurse Type: Care Mgt Progress Note Filed: 04/23/2023 2:11 PM Note Text: CARE MANAGEMENT DISCHARGE NOTE SERVICE DATE: April 23, 2023 SERVICE TIME: 2:09 PM Admission Date: 04/21/2023 LOS: 0 days Discharge Arrangement Discharge Arrangement: Home with Self Care Services Arranged None Caregiver Assessment Caregiver is ready, willing and able to meet the patient's needs as recommended by the inter-professional team: No Caregiver needed Transportation Arrangements Transportation Arrangements: Car Additional Information: Pt medically ready for discharge home with no needs and self care. Pt is aware and in agreement with the plan. Pt ready for discharge from perspective. SIGNATURE: Tiffany Frey RN PATIENT NAME: Melina Díaz DATE: April 23, 2023 TIME: 2:09 PM CONTACT #: [phone] [facility] CBC W Auto Differential pane l (Bld)on 04-23-2023 Basophils (Bld) [#/Vol] 0.07 10*3/uL Normal <0.11 [facility] Comment on above: Order Comment: Speci men Type: BLOOD SPECIMENOrdering Facility: [facility] Address: [address] [address] Performed By: #### 5 7021-8 ####[facility] LABORATORYIA [id number] [place] [address] [place] Basophils/100 WBC (Bld) 1.7 % Normal [facility] Comment on above: Order Comment: Speci men Type: BLOOD SPECIMENOrdering Facility: [facility] Address: [address] [address] Performed By: #### 5 7021-8 ####[facility] LABORATORYCLIA [id number] [place] [address] [place] Differential cell count method Nom (Bld) Auto Normal [facility] Comment on above: Order Comment: Speci men Type: BLOOD SPECIMENOrdering Facility: [facility] Address: [address] [address] Performed By: #### 5 7021-8 ####[facility] LABORATORYCLIA [id number] [place] [address] [place] Eosinophils (Bld) [#/Vol] 0.14 10*3/uL Normal <0.46 [facility] Comment on above: Order Comment: Speci men Type: BLOOD SPECIMENOrdering Facility: [facility] Address: [address] [address] Performed By: #### 5 7021-8 ####[facility] LABORATORYCLIA [id number] [place] [address] [place] Eosinophils/100 WBC (Bld) 3.5 % Normal [facility] Comment on above: Order Comment: Speci men Type: BLOOD SPECIMENOrdering Facility: [facility] Address: [address] [place] [address] Performed By: #### 5 7021-8 ####[facility] LABORATORYIA [id number] [address] [place] Erythrocyte distribution width (RBC) [Ratio] 13.0 % Normal 11.5-15.0 [facility] Comment on above: Order Comment: Speci men Type: BLOOD SPECIMENOrdering Facility: [facility] Address: [address] [place] [address] Performed By: #### 5 7021-8 ####[facility] LABORATORYIA [id number] [place] [address] [place] Hematocrit (Bld) [Volume fraction] 33.9 % Low 36.0-46.0 [facility] Comment on above: Order Comment: Speci men Type: BLOOD SPECIMENOrdering Facility: [facility] Address: [address] [place] [address] Performed By: #### 5 7021-8 ####[facility] LABORATORYIA [id number] [place] [address] [place] Hemoglobin (Bld) [Mass/Vol] 11.1 g/dL Low 11.5-15.5 [facility] Comment on above: Order Comment: Speci men Type: BLOOD SPECIMENOrdering Facility: [facility] Address: [address] [address] Performed By: #### 5 7021-8 ####[facility] LABORATORYIA [id number] [address] [id number] [place] Immature granulocytes (Bld) [#/Vol] 10*3/uL Normal <0.10 [facility] Comment on above: Order Comment: Speci men Type: BLOOD SPECIMENOrdering Facility: [facility] Address: [address] [address] Performed By: #### 5 7021-8 ####[facility] LABORATORYIA [id number] [address] [place] Immature granulocytes/100 WBC (Bld) 0.0 % Normal [facility] Comment on above: Order Comment: Speci men Type: BLOOD SPECIMENOrdering Facility: [facility] Address: [address] [place] [address] Performed By: #### 5 7021-8 ####[facility] CENTERIA [id number] [place] [address] [place] Lymphocytes (Bld) [#/Vol] 2.22 10*3/uL Normal 1.00-4.00 [facility] Comment on above: Order Comment: Speci men Type: BLOOD SPECIMENOrdering Facility: [facility] Address: [address] [place] [address] Performed By: #### 5 7021-8 ####[facility] LABORATORYIA [id number] [place] [address] [place] Lymphocytes/100 WBC (Bld) 55.0 % Normal [facility] Comment on above: Order Comment: Speci men Type: BLOOD SPECIMENOrdering Facility: [facility] Address: [address] [place] [address] Performed By: #### 5 7021-8 ####[facility] LABORATORYIA [id number] [place] [address] [place] MCH (RBC) [Entitic mass] 29.2 pg Normal 26.0-34.0 [facility] Comment on above: Order Comment: Speci men Type: BLOOD SPECIMENOrdering Facility: [facility] Address: [address] [address] Performed By: #### 5 7021-8 ####[facility] [id number] [place] [address] [place] MCHC (RBC) [Mass/Vol] 32.7 g/dL Normal 30.5-36.0 [facility] Comment on above: Order Comment: Speci men Type: BLOOD SPECIMENOrdering Facility: [facility] Address: [address] [address] Performed By: #### 5 7021-8 ####[facility] [id number] [place] [address] [place] MCV (RBC) [Entitic vol] 89.2 fL Normal 80.0-100.0 [facility] Comment on above: Order Comment: Speci men Type: BLOOD SPECIMENOrdering Facility: [facility] Address: [address] [address] Performed By: #### 5 7021-8 ####[facility] [id number] [place] [address] [place] Monocytes (Bld) [#/Vol] 0.41 10*3/uL Normal <0.87 [facility] Comment on above: Order Comment: Speci men Type: BLOOD SPECIMENOrdering Facility: [facility] Address: [address] [address] Performed By: #### 5 7021-8 ####[facility] CENTERIA [id number] [address] [place] Monocytes/100 WBC (Bld) 10.1 % Normal [facility] Comment on above: Order Comment: Speci men Type: BLOOD SPECIMENOrdering Facility: [facility] Address: [address] [address] Performed By: #### 5 7021-8 ####[facility] [id number] [facility] [place] [address] [place] Neutrophils (Bld) [#/Vol] 1.20 10*3/uL Low 1.45-7.50 [facility] Comment on above: Order Comment: Speci men Type: BLOOD SPECIMENOrdering Facility: [facility] Address: [address] [address] Performed By: #### 5 7021-8 ####[facility] LABORATORYCLIA [id number] [place] [address] [place] Neutrophils/100 WBC (Bld) 29.7 % Normal [facility] Comment on above: Order Comment: Speci men Type: BLOOD SPECIMENOrdering Facility: [facility] Address: [address] [place] [address] Performed By: #### 5 7021-8 ####[facility] LABORATORYCLIA [id number] [place] [address] [place] Nucleated RBC (Bld) [#/Vol] 10*3/uL Normal <0.01 [facility] Comment on above: Order Comment: Speci men Type: BLOOD SPECIMENOrdering Facility: [facility] Address: [address] [place] [address] Performed By: #### 5 7021-8 ####[facility] LABORATORYCLIA [id number] [place] [address] [place] Nucleated RBC/100 WBC (Bld) [Ratio] 0.0 /100 WBC Normal [facility] Comment on above: Order Comment: Speci men Type: BLOOD SPECIMENOrdering Facility: [facility] Address: [address] [place] [address] Performed By: #### 5 7021-8 ####[facility] LABORATORYIA [id number] [place] [address] [place] Platelet mean volume (Bld) [Entitic vol] 10.0 fL Normal 9.0-12.7 [facility] Comment on above: Order Comment: Speci men Type: BLOOD SPECIMENOrdering Facility: [facility] Address: [address] [place], [place] [address] Performed By: #### 5 7021-8 ####[facility] LABORATORYCLIA [id number] [place] [address] [facility] [place] Platelets (Bld) [#/Vol] 217 10*3/uL Normal 150-400 [facility] Comment on above: Order Comment: Speci men Type: BLOOD SPECIMENOrdering Facility: [facility] Address: [address] [place] [address] Performed By: #### 5 7021-8 ####[facility] LABORATORYCLIA [id number] [place] [address] [place] RBC (Bld) [#/Vol] 3.80 10*6/uL Low 3.90-5.20 [facility] Comment on above: Order Comment: Speci men Type: BLOOD SPECIMENOrdering Facility: [facility] Address: [address] [place] [address] Performed By: #### 5 7021-8 ####[facility] LABORATORYIA [id number] [facility] [address] [place] WBC (Bld) [#/Vol] 4.04 10*3/uL Normal 3.70-11.00 [facility] Comment on above: Order Comment: Speci men Type: BLOOD SPECIMENOrdering Facility: [facility] Address: [address] [place] [address] Performed By: #### 5 7021-8 ####[facility] LABORATORYIA [id number] [facility] [place] [address] [facility] [place] CNDSon 04-23-2023 CNDS HNO ID: [id number] Author: Niharika Panchal MD Service: Hospital Medicine Author Type: Physician Type: Discharge Summary Filed: 04/23/2023 11:55 AM Note Text: DISCHARGE SUMMARY PATIENT NAME: Melina Díaz ADMISSION DATE: 04/21/2023 DISCHARGE DATE: 04/23/2023 ATTENDING PHYSICIAN: Niharika Panchal MD Code Status: Prior PCP: Sean Ruiz DO Highest Readmission Risk Score: 13 The 30 day readmissions risk score is derived from an internally validated risk model which evaluates patient level characteristics, utilization history, medication orders and lab results up until the day of discharge. Patients with a score of 40 or above are considered highest risk for readmission. Specific patient level drivers will be listed at the bottom of the summary. TRANSITIONS OF CARE CRITICAL ISSUES: FROST MEDICATION CHANGES: Tylenol prn Omeprazole only once a day LAB MONITORING NEEDED: Not applicable IMAGING FOLLOW-UP: Not applicable LABS AND PROCEDURES PENDING AT DISCHARGE: Test Results Not Yet Available from This Hospitalization: Please Review at Your Follow Up Appointment Order Current Status SURGICAL PATHOLOGY In process URINE CULTURE IF INDICATED Preliminary result No pending results. FOLLOW UP: See follow up appointment listed below. REASON FOR HOSPITALIZATION: abdominal pain, diarrhea PRINCIPAL DIAGNOSIS: Abdominal pain uncontrolled Diarrhea osmotic in the setting of preparation for colonoscopy Recurrent opioid use for abdominal pain H/o PUD SECONDARY DIAGNOSIS: Principal Problem: Intractable abdominal pain (POA: Yes) Active Problems: Left sided abdominal pain (POA: Yes) Anxiety (POA: Yes) Acquired hypothyroidism (POA: Yes) History of Gelacio-en-Y gastric bypass (POA: Yes) History of Clostridium difficile colitis (POA: Yes) Epigastric pain (POA: Yes) Resolved Problems: * No resolved hospital problems. * HOSPITAL COURSE: 47 year old female presented with past medical history of conversion to Gelacio-en-Y gastric bypass (December 2021), lap revision of gastrojejunostomy and vagotomy for recurrent marginal ulcer (Jul 2022). EGD 04/09/2023-Normal examined jejunum. Biopsied. Gelacio-en-Y gastrojejunostomy with gastrojejunal anastomosis Bx characterized by healthy appearing mucosa. Chronic gastritis. Bx negative for H Pylori . Comes with recurrent abdominal pain and diarrhea for 3 weeks, initially 2 a day last 3 days 13 a day, while in preparation for colonoscopy. Admitted, IV fluids and pain management started. Colonoscopy done on 04/23/23 Diverticulosis in the sigmoid colon. The examination was otherwise normal. Biopsies were taken with a cold forceps from the right colon, left colon and transverse colon for evaluation of microscopic colitis. Patient tolerated the procedure and Dc in stable condition. Follow up with GI for pathology results. Patient had many visits to ER for abdominal pain and has being prescribed multiple times opioids. We will hold on this to avoid withdrawal from opioids and potential addiction. For pain she is to take tylenol prn. OPERATIONS/PROCEDURE DURING THIS HOSPITALIZATION: * No surgery found * No other procedures CONSULTS DURING HOSPITALIZATION: Treatment Team: Attending Provider: Niharika Panchal MD Consulting: Jany Fuentes MD Orders Placed This Encounter Smoking Cessation Education CONSULT TO PAIN MANAGEMENT (AK,AV,EU,FV,STEFANI,MM,MR,SP) Physician Consult CONSULT TO PAIN MANAGEMENT (AK,AV,EU,FV,STEFANI,MM,MR,SP) PATIENT CONDITION AT DISCHARGE: Stable ADVANCE CARE PLANNING DISCUSSION (if applicable): N/A DISCHARGE DISPOSITION: Home with Self Care Discharge Physical Exam: VITAL SIGNS: BP 115/77 Pulse 70 Temp 36.6 ?C (97.9 ?F) (Oral) Resp 16 Ht 172.7 cm (5' 8 ) Wt 88.8 kg (195 lb 12.3 oz) SpO2 97% BMI 29.77 kg/m? Awake, alert, mucosa moist lungs clear to auscultation cardiac sounds rrr abdomen soft, still little tender to palpation with normal bs. No leg edema. Motor 5/5 upper and lower. WOUND/SURGICAL SITE CARE: None SUPPLIES OR EQUIPMENT: None DIET: Resume pre-hospital diet ACTIVITY AND EXERCISE: Resume pre-hospital activity ADDITIONAL INFORMATION: Follow up with GI for pathology results. FOLLOW UP APPOINTMENTS: No future appointments. ALLERGIES Allergen Reactions Gabapentin Angioedema Patient reports throat swelling with gabapentin. Tramadol Hives Adhesive Tape (Serina* Rash, Swelling, Itching Nsaids (Non-Steroid* Contraindication-Medical Surgical S/p gelacio en y gastric bypass Paxil [Paroxetine] Intolerance Gi upset Scopolamine Other: See Comments Blurred vision Toradol [Ketorolac * Hives, Swelling DISCHARGE MEDICATION: Medication List START taking these medications acetaminophen 325 mg tablet Commonly known as: TYLENOL Take 2 tablets by mouth every 6 hours as needed for pain. CHANGE how you take these medications pantoprazole DR 40 mg tablet Co (more content not included)... Normal [facility] CNPNon 04-23-[address] [facility] Colonoscopyon 04-23-2023 Colonoscopy [facility] Gastrointestinal Endoscopy Patient Name: Melina Díaz Procedure Date: 04/23/2023 7:15 AM Date of : 1975 Admit Type: Outpatient Age: 47 Room: AV ENDO 01 Gender: Female Note Status: Finalized Attending MD: Rene Peter MD Procedure: Colonoscopy Indications: Chronic diarrhea Providers: Rene Peter MD Patient Profile: This is a 47 year old female. Refer to note in patient chart for documentation of history and physical. Last Colonoscopy: March 2023. Referring Physician: Brigitte hennessy) Radha (Referring MD) Medicines: Monitored Anesthesia Care Complications: No immediate complications. Requesting Provider: Procedure: Pre-Anesthesia Assessment: - Prior to the procedure, a History and Physical was performed, and patient medications and allergies were reviewed. The patient is competent. The risks and benefits of the procedure and the sedation options and risks were discussed with the patient. All questions were answered and informed consent was obtained. Patient identification and proposed procedure were verified by the physician, the nurse and the directional driller in the pre-procedure area in the procedure room. Mental Status Examination: alert and oriented. Airway Examination: normal oropharyngeal airway and neck mobility. Respiratory Examination: clear to auscultation. CV Examination: normal. Prophylactic Antibiotics: The patient does not require prophylactic antibiotics. Prior Anticoagulants: The patient has taken no anticoagulant or antiplatelet agents. ASA Grade Assessment: III - A patient with severe systemic disease. After reviewing the risks and benefits, the patient was deemed in satisfactory condition to undergo the procedure. The anesthesia plan was to use monitored anesthesia care (MAC). Immediately prior to administration of medications, the patient was re-assessed for adequacy to receive sedatives. The heart rate, respiratory rate, oxygen saturations, blood pressure, adequacy of pulmonary ventilation, and response to care were monitored throughout the procedure. The physical status of the patient was re-assessed after the procedure. After I obtained informed consent, the scope was passed under direct vision. Throughout the procedure, the patient's blood pressure, pulse, and oxygen saturations were monitored continuously. The Colonoscope was introduced through the anus and advanced to the cecum, identified by appendiceal orifice and ileocecal valve. The colonoscopy was performed without difficulty. The patient tolerated the procedure well. The quality of the bowel preparation was good. The ileocecal valve, appendiceal orifice, and rectum were photographed. Scope Withdrawal Time: 0 hours 11 minutes 51 seconds Moderate Sedation: MAC anesthesia was administered by the anesthesia team. Total Procedure Duration: 0 hours 19 minutes 52 seconds Findings: The perianal and digital rectal examinations were normal. A few small-mouthed diverticula were found in the sigmoid colon. The exam was otherwise without abnormality. Biopsies for histology were taken with a cold forceps from the right colon, left colon and transverse colon for evaluation of microscopic colitis. Estimated blood loss was minimal. Impression: - Diverticulosis in the sigmoid colon. - The examination was otherwise normal. - Biopsies were taken with a cold forceps from the right colon, left colon and transverse colon for evaluation of microscopic colitis. Recommendation: - Patient has a contact number available for emergencies. The signs and symptoms of potential delayed complications were discussed with the patient. Return to normal activities tomorrow. Written discharge instructions were provided to the patient. - Discharge patient to home. - Resume regular diet today. - Continue present medications. - Await pathology results. - Repeat colonoscopy in 7-10 years for screening purposes. - Return to GI office as previously scheduled. Procedure Code(s): --- Professional --- 21039, Colonoscopy, flexible; with biopsy, single or multiple Diagnosis Code(s): --- Professional --- K52.9, Noninfective gastroenteritis and colitis, unspecified K57.30, Diverticulosis of large intestine without perforation or abscess without bleeding CPT copyright 2020 [employer]. All rights reserved. The codes documented in this report are preliminary and upon help desk associate review may be revised to meet current compliance requirements. Attending Participation: I personally performed the entire procedure. Scope In: 7:35:44 AM Scope Out: 7:55:36 AM MD Rene Weinstein MD 04/23/2023 7:58:41 AM This report has been signed electronically by Rene Peter MD Number of Addenda: 0 Note Initiated On: 04/23/2023 7:15 AM Estimated Blood Loss: Estimated blood loss was minimal. [facility] SURGICAL PATHOLOGYon 023 CASE REPORT [facility] Comment on above: Order Comment: Speci men Type: TISSUE SPECIMENOrdering Facility: [facility] Address: [address] [place], [place] [address] [address] Result Comment: Surg ica Pathology Report Case: [id number] Authorizing Provider: Rene Peter MD Collected: 04/23/2023 07:47 AM Ordering Location: Procedures Received: 04/23/2023 08:04 AM Pathologist: Jamie Krishnan MD Specimen: COLON BIOPSY Performed By: #### S ####[facility] LABORATORYCLIA [id number] [address] LABCLIA [id number] [address] CLINICAL HISTORY R/O microscopic colitis Normal [facility] Comment on above: Order Comment: Speci men Type: TISSUE SPECIMENOrdering Facility: [facility] Address: [address] [place] [address] Performed By: #### S ####[facility] LABORATORYCLIA [id number] [address] LABCLIA [id number] [address] FINAL DIAGNOSIS Normal [facility] Comment on above: Order Comment: Speci men Type: TISSUE SPECIMENOrdering Facility: [facility] Address: [address] [place] [address] Result Comment: Nick thibodeaux, biopsy: - Colonic mucosa with no significant pathologic changes. Performed By: #### S ####[facility] LABORATORYCLIA [id number] [address] LABCLIA [id number] [address] FINAL PERFORMING LAB Normal [facility] Comment on above: Order Comment: Speci men Type: TISSUE SPECIMENOrdering Facility: [facility] Address: [address] [address] Result Comment: Diag nostic interpretation performed at [facility], [address] [place] [address] CLIA# [id number] Physician Office Specialist: Dona Saavedra M.D. Performed By: #### S ####[facility] LABORATORYCLIA [id number] [address] LABCLIA [id number] [address] GROSS DESCRIPTION A. COLON BIOPSY Normal [facility] Comment on above: Order Comment: Speci men Type: TISSUE SPECIMENOrdering Facility: [facility] Address: [address] [address] Result Comment: Rece ived in formalin are multiple pieces of rodriguez, soft tissue aggregating to 1.9 x 0.2 x 0.2 cm. Totally submitted in formalin in one cassette. Gross examination performed at [facility], [address] 04/23/2023 12:13 PM Performed By: #### S ####[facility] HOSPITALIA [id number] [address] LABCLIA [id number] [address] OF [facility] CBC panel Auto (Bld)on 04-22 Erythrocyte distribution width (RBC) [Ratio] 12.8 % Normal 11.5-15.0 [facility] Comment on above: Order Comment: Speci men Type: BLOOD SPECIMENOrdering Facility: [facility] Address: [address] [place] [address] Performed By: #### 5 8410-2 ####[facility] CENTERIA [id number] [address] OF [facility] Hematocrit (Bld) [Volume fraction] 34.0 % Low 36.0-46.0 [facility] Comment on above: Order Comment: Speci men Type: BLOOD SPECIMENOrdering Facility: [facility] Address: [address] [address] Performed By: #### 5 8410-2 ####[facility] LABORATORYIA [id number] [address] [place] Hemoglobin (Bld) [Mass/Vol] 11.2 g/dL Low 11.5-15.5 [facility] Comment on above: Order Comment: Speci men Type: BLOOD SPECIMENOrdering Facility: [facility] Address: [address] [address] Performed By: #### 5 8410-2 ####[facility] [id number] [address] STATES OF [facility] MCH (RBC) [Entitic mass] 29.6 pg Normal 26.0-34.0 [facility] Comment on above: Order Comment: Speci men Type: BLOOD SPECIMENOrdering Facility: [facility] Address: [address] [address] Performed By: #### 5 8410-2 ####[facility] [id number] [address] STATES [place] MCHC (RBC) [Mass/Vol] 32.9 g/dL Normal 30.5-36.0 [facility] Comment on above: Order Comment: Speci men Type: BLOOD SPECIMENOrdering Facility: [facility] Address: [address] [address] Performed By: #### 5 8410-2 ####[facility] [id number] [address] [place] MCV (RBC) [Entitic vol] 89.9 fL Normal 80.0-100.0 [facility] Comment on above: Order Comment: Speci men Type: BLOOD SPECIMENOrdering Facility: [facility] Address: [address] [address] Performed By: #### 5 8410-2 ####[facility] [id number] [address] [place] Nucleated RBC (Bld) [#/Vol] 10*3/uL Normal <0.01 [facility] Comment on above: Order Comment: Speci men Type: BLOOD SPECIMENOrdering Facility: [facility] Address: [address] [address] Performed By: #### 5 8410-2 ####[facility] LABORATORYIA [id number] [place] [address] [place] Platelet mean volume (Bld) [Entitic vol] 9.8 fL Normal 9.0-12.7 [facility] Comment on above: Order Comment: Speci men Type: BLOOD SPECIMENOrdering Facility: [facility] Address: [address] [place] [address] Performed By: #### 5 8410-2 ####[facility]ENTERIA [id number] [facility] [place] [address] [facility] [place] Platelets (Bld) [#/Vol] 232 10*3/uL Normal 150-400 [facility] Comment on above: Order Comment: Speci men Type: BLOOD SPECIMENOrdering Facility: [facility] Address: [address] [place] [address] Performed By: #### 5 8410-2 ####[facility] [id number] [facility] [place] [address] [place] RBC (Bld) [#/Vol] 3.78 10*6/uL Low 3.90-5.20 [facility] Comment on above: Order Comment: Speci men Type: BLOOD SPECIMENOrdering Facility: [facility] Address: [address] [place], [place] [address] Performed By: #### 5 8410-2 ####[facility] CENTERIA [id number] [facility] [id number] [place] WBC (Bld) [#/Vol] 4.89 10*3/uL Normal 3.70-11.00 [facility] Comment on above: Order Comment: Speci men Type: BLOOD SPECIMENOrdering Facility: [facility] Address: [address] [place], [place] [address] Performed By: #### 5 8410-2 ####[facility] LABORATORYIA [id number] [facility] [place] [address] [facility] CONSULTon 04-22-2023 CONSULT HNO ID: [id number] Author: Jordan Monzon PA-C Service: Pain Management Author Type: Physician Unix System Administrator Type: Consults Filed: 04/22/2023 4:27 PM Note Text: PAIN MANAGEMENT CONSULT -- [facility] PATIENT NAME: Melina Díaz DATE of SERVICE: April 22, 2023 TIME of SERVICE:3:24 PM ATTENDING PROVIDER: Niharika Panchal MD PAIN MANAGEMENT SUMMARY: Ms. Díaz is a 47 year old female admitted with intractable abdominal pain. Her CT identifies mild colitis but no other acute findings are noted. Patient has 7 medication allergies including intolerances to gabapentin, tramadol, and NSAID's. Plan is as follows: Patient with prior positive urine toxicology for THC -- repeat urine toxicology screen now. Patient is tolerating PO medications and has no findings on imaging or exam suggesting an acute issue -- D/C IV Dilaudid. Trial of oxycodone 2.5 mg PO q6h PRN severe pain. Continue Tylenol as ordered. Patient will not require an opioid prescription at discharge. DIAGNOSES: Epigastric pain. Left-sided abdominal pain. Active Hospital Problems Diagnosis Date Noted Intractable abdominal pain 06/16/2022 History of Clostridium difficile colitis 04/21/2023 Acquired hypothyroidism 06/16/2022 Anxiety 06/16/2022 History of Gelacio-en-Y gastric bypass 06/16/2022 Diarrhea due to malabsorption 06/16/2022 CHIEF COMPLAINT: Epigastric pain radiating to the left upper and left lower quadrants. HPI: Melina Díaz is a 47 year old year old female admitted on 04/21/2023 with intractable abdominal pain. Consultation requested by Yael Li CNP for an opinion regarding chronic pain syndrome, coming in with intractable abdominal pain despite taking Oxy IR every six hours at home. My final recommendations will be communicated back to the requesting provider by way of shared medical record. The patient has history of gastric bypass in December 2021. She was admitted to [facility] on 04/07/23 for complaints similar to those that brought her here. She was seen by gastroenterology service and EGD was performed, which was unremarkable. Colonoscopy was attempted but the patient's prep was poor and it gastroenterology service placed the patient on a fiber product to attempt to reduce her stool burden. She was discharged on 04/12/2023. She was admitted here on 04/21/23 with complaints of abdominal pain, nausea, and diarrhea. She describes a sharp pain in her midline abdomen radiating to the left as far around his left flank. This is constant and exacerbated by forward flexion and sometimes eating. No alleviating factors are identified. Her current pain score is 8/10. The patient's current inpatient analgesic regimen includes Tylenol 650 mg PO q6h PRN mild-moderate pain, Dilaudid 0.2 mg IV q4h PRN severe pain. OARRS Report was reviewed. The patient has received 34 controlled substance prescriptions from 12 different providers in the past 2 years. The patient's most recent prescription was dispensed on 04/14/23 (Dextroamp-Amphetamin 15 Mg Tab, 60 tabs/30 days). Overdose Risk Score: 350. Current outpatient MME: 0 mg. PAST MEDICAL HISTORY: PAST MEDICAL HISTORY Diagnosis Date Breast mass 11/04/07 Right, biopsy benign Encounter for cosmetic surgery Endometriosis Excess skin of arm Fracture , ankle Localized adiposity Morbid obesity (HCC) Ovarian cyst induced hypertension Thyroid disorder PAST SURGICAL HISTORY: PAST SURGICAL HISTORY Procedure Laterality Date ASSIST ONLY x3 EGD multiple GASTRIC BYPASS HX 12/2021 conversion from gastruc sleeve LAPAROSCOPY SURG CHOLECYSTECTOMY 2004 Cholecystectomy, lap PAST SURGICAL HISTORY OF 10/28/2011 gastric sleeve PAST SURGICAL HISTORY OF 2011 excision of goiter PAST SURGICAL HISTORY OF thyroid mass removed REMOVAL STOMACH,GELACIO-EN-Y 07/29/2022 TOTAL ABDOMINAL HYSTERECT W/WO RMVL TUBE OVARY 05/01/2010-05/2011 Hysterectomy, partial uterus then completion ALLERGIES: ALLERGIES Allergen Reactions Gabapentin Angioedema Patient reports throat swelling with gabapentin. Tramadol Hives Adhesive Tape (Serina* Rash, Swelling, Itching Nsaids (Non-Steroid* Contraindication-Medical Surgical S/p gelacio en y gastric bypass Paxil [Paroxetine] Intolerance Gi upset Scopolamine Other: See Comments Blurred vision Toradol [Ketorolac * Hives, Swelling CURRENT MEDICATIONS: Current Facility-Administered Medications: diphenhydrAMINE 12.5 mg injection (BENADRYL) ALPRAZolam 0.5 mg tab(s) (XANAX) pantoprazole 40 mg injection (PROTONIX) levothyroxine 50 mcg tab(s) (SYNTHROID) NaCl 0.9% iv flush bag lactated ringers iv infusion acetaminophen 650 mg tab(s) (TYLENOL) prochlorperazine 5 mg injection (COMPAZINE) HYDROmorphone 0.2 mg injection (DILAUDID) polyethylene glycol 3350 238 g oral powder bisacodyl EC 10 mg tab(s) (DULCOLAX) [COMPLETED] CT ABD/PEL W IVCON AND iv con (more content not included)... Normal [facility] CONSULT HNO ID: [id number] Author: Brigitte Garcia APRN.MANAGER 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 Service: Gastroenterology Author Type: Nurse Practitioner Type: Consults Filed: 04/22/2023 11:27 AM Note Text: -- Attestation signed by Rene Peter MD at 04/23/2023 8:06 AM ATTENDING NOTE: I performed a history and physical examination of the patient and supervised and discussed the management with the PA/COURT OF APPEALS JUDGE. I discussed the care/management plan with the PA/COURT OF APPEALS JUDGE. I reviewed the PA/COURT OF APPEALS JUDGE's note and agree with the documented findings and plan of care. Rene Peter MD [facility] -- GI INITIAL CONSULT NOTE SERVICE DATE: 04/22/2023 SERVICE TIME: 0900 REASON FOR CONSULT: Abd pain with prepping REQUESTING PHYSICIAN: Abdulkadir PRIMARY CARE PHYSICIAN: Sean Ruiz, DO Subjective Ms. Díaz is a 47 year old female with a PMH of ADHD-on mydayis, chornic pain on oxy PRN, Hypothyroidism, c diff, h/o sleeve gastrectomy ([facility]. 10 years ago), conversion to Gelacio-en-Y gastric bypass (December 2021), lap revision of gastrojejunostomy and vagotomy for recurrent marginal ulcer (Jul 2022) who presents wth abd pain and n/v with bowel prep. Pt was admitted 04/07/2023 for abd ain with n/v/d. Stool studies were negative. EGD was unremarkable bx negative for H Pylori and colonoscopy was poor prep. Pain was thought to be over flow diarrhea and started on fiber. Pt discharged and evaluated by Dr. Fuentes. She was scheduled for repeat colonoscopy today with a 2 day prep. After colonoscopy with bx was going to assess for SIBO> But when she started the prep her abd pain got much worse with N/V and came to ED. Pt states at baseline she goes 10-15 liquid non bloody BM;'s a day. FUNCTIONAL STATUS: Partially dependent PAST MEDICAL HISTORY Diagnosis Date Breast mass 11/04/07 Right, biopsy benign Encounter for cosmetic surgery Endometriosis Excess skin of arm Fracture , ankle Localized adiposity Morbid obesity (HCC) Ovarian cyst induced hypertension Thyroid disorder PAST SURGICAL HISTORY Procedure Laterality Date ASSIST ONLY x3 EGD multiple GASTRIC BYPASS HX 12/2021 conversion from gastruc sleeve LAPAROSCOPY SURG CHOLECYSTECTOMY 2004 Cholecystectomy, lap PAST SURGICAL HISTORY OF 10/28/2011 gastric sleeve PAST SURGICAL HISTORY OF 2011 excision of goiter PAST SURGICAL HISTORY OF thyroid mass removed REMOVAL STOMACH,GELACIO-EN-Y 07/29/2022 TOTAL ABDOMINAL HYSTERECT W/WO RMVL TUBE OVARY 05/01/2010-05/2011 Hysterectomy, partial uterus then completion FAMILY HISTORY Problem Relation Age of Onset COPD Mother Hypertension Mother other (hypoglycemia) Mother Emphysema Father Coronary Artery Disease Father Ischemic Heart Disease Father 58 s/p stents Hypertension Father Asthma Sister 1/2 sister with female cysts other (unkown) Sister BiPolar-Bulemia None Brother 1/2--unkown Thyroid Other 1st cousin - ? Grave's Social History Tobacco Use Smoking status: Never Smokeless tobacco: Never Vaping Use Vaping Use: Never used Substance Use Topics Alcohol use: Not Currently Drug use: No Comment: denies tx for drug/alcohol abuse in the past. semaglutide (OZEMPIC) 0.25 mg or 0.5 mg(2 mg/1.5 mL) pen, Inject 0.5 mg subcutaneously one time a week., Disp: , Rfl: , 04/14/[address] (PROTONIX) 40 mg tablet, Take 1 tablet by mouth twice daily before meals (0600/1600)., Disp: 60 tablet, Rfl: 0, 04/22/2023 promethazine (PHENERGAN) 25 mg tablet, Take 1 tablet by mouth every 8 hours as needed (for nausea)., Disp: 40 tablet, Rfl: 0, 04/22/2023 cholecalciferol (VITAMIN D3) 1,000 unit tab tablet, take 1 tablet by mouth once daily . BREAK OPEN AND RELEASE UNDER TONGUE FOR BEST ABSORPTION, Disp: 90 tablet, Rfl: 0, 04/22/2023 levothyroxine (SYNTHROID) 50 mcg tablet, Take 50 mcg by mouth., Disp: , Rfl: , 04/22/2023 at AM ALPRAZolam (XANAX) 0.5 mg tablet, Take 0.5 mg by mouth at bedtime as needed., Disp: , Rfl: , 04/21/2023 at 10PM dextroamphetamine-amphetam ine (ADDERALL) 20 mg tablet, Take 20 mg by mouth twice daily., Disp: , Rfl: , 04/22/2023 at AM MULTI-VITAMIN ORAL, Take 1 tablet by mouth once daily., Disp: , Rfl: , 04/22/2023 polyethylene glycol 3350 17 gram packet, Take 1 Packet by mouth once daily. Dissolve dose in 4 - 8 ounces of liquid and take as directed., Disp: , Rfl: , Unknown naloxone 4 mg/actuation nasal spray (NARCAN), Use 1 spray in one nostril as needed for overdose. May repeat every 2 to 3 min in alternating nostrils until medical assistance is available, Disp: 1 Each, Rfl: 0 cyanocobalamin, vitamin B-12, (B-12 COMPLIANCE) 1,000 mcg/mL kit, 1 mL by INJECTION(UNSPECIFIED PARENTERAL ROUTES) route one time a week., Disp: , Rfl: , 04/18/2023 Current Facility-Administered Medications Medication (more content not included)... Normal [facility] CT ABD/PEL W IVCONon 023 CT ABD/PEL W IVCON * * *Final Report* * * DATE OF EXAM: Apr 21 2023 10:36PM [facility] 0530 - CT ABD/PEL W IVCON / PROCEDURE REASON: RLQ abdominal pain (Age >= 14y) * * * * Physician Interpretation * * * * EXAMINATION: CT ABD/PEL W IVCON INDICATION: RLQ abdominal pain (Age >= 14y) RLQ abdominal pain (Age >= 14y) COMPARISON: 04/07/2023 TECHNIQUE: CT of the abdomen and pelvis was performed using standard technique, scanning from just above the dome of the diaphragm to the pubic symphysis. Contrast: IV: 100 ml of Omnipaque 350 : ml of CT Radiation dose: Integrated Dose-length product (DLP) for this visit = 538 mGy*cm. CT Dose Reduction Employed: Automated exposure control(AEC) and iterative recon FINDINGS: Lower Thorax: No consolidations Liver: No masses. Gallbladder/Biliary: Cholecystectomy. No biliary ductal dilatation. Spleen: Stable splenic cystic lesion. Pancreas: Unremarkable. Adrenals: No nodules Kidneys: No suspicious masses. No hydronephrosis. Vasculature: No abdominal aortic aneurysm. GI Tract: Status post gastric bypass. Partially fluid-filled colon with mild underlying wall thickening. No evidence for obstruction or appendicitis. Pelvis: Hysterectomy. Underdistended bladder. Mesentery/Peritoneum/Retro peritoneum: No free air or fluid Lymph Nodes: No lymphadenopathy. Bones and soft tissues: No suspicious bone lesions. No acute findings. Plastic Boat Patcher (topogram) images: No additional findings. IMPRESSION: 1. Mild colitis, likely infectious or inflammatory. Billing Assistant: ZACHERY Transcribe Date/Time: Apr 21 2023 10:46P Dictated by : ALAN MACDONALD MD This examination was interpreted and the report reviewed and electronically signed by: ALAN MACDONALD MD on Apr 21 2023 10:55PM EST [id number] Normal [facility] Comprehensive metabolic 2000 panelon 04-22-2023 Albumin [Mass/Vol] 3.5 g/dL Low 3.9-4.9 [facility] Comment on above: Order Comment: Speci men Type: BLOOD SPECIMEN [facility] Address: [address] [place] [id number] Performed By: #### 5 8410-2 #### [facility] CLIA [id number] [address] [place] [address] [place] ALP [Catalytic activity/Vol] 102 U/L Normal 34-123 [facility] Comment on above: Order Comment: Speci men Type: BLOOD SPECIMEN [facility] Address: [address] [place], [place] [address] Performed By: #### 5 8410-2 #### [facility] CLIA [id number] [address] [place] [address] [place] ALT [Catalytic activity/Vol] 31 U/L Normal 7-38 [facility] Comment on above: Order Comment: Speci men Type: BLOOD SPECIMEN [facility] Address: [address] [place] [address] Performed By: #### 5 8410-2 #### [facility] CLIA [id number] [address] [place] [address] [place] Anion gap [Moles/Vol] 12 mmol/L Normal 9-18 [facility] Comment on above: Order Comment: Speci men Type: BLOOD SPECIMEN [facility] Address: [address] [place] [address] Performed By: #### 5 8410-2 #### [facility] CLIA [id number] [address] [place] [address] [place] AST [Catalytic activity/Vol] 31 U/L Normal 13-35 [facility] Comment on above: Order Comment: Speci men Type: BLOOD SPECIMEN [facility] Address: [address] [place], [place] [address] Performed By: #### 5 8410-2 #### [facility] CLIA [id number] [address] [place] [address] [place] Bilirubin [Mass/Vol] 0.3 mg/dL Normal 0.2-1.3 [facility] Comment on above: Order Comment: Speci men Type: BLOOD SPECIMEN [facility] Address: [address] [place] [address] Performed By: #### 5 8410-2 #### [facility] [place] [id number] [address] [place] [address] [place] Calcium [Mass/Vol] 8.6 mg/dL Normal 8.5-10.2 [facility] Comment on above: Order Comment: Speci men Type: BLOOD SPECIMEN [facility] Address: [address] [place] [address] Performed By: #### 5 8410-2 #### [facility] [place] [id number] [address] [place] [address] [place] Chloride [Moles/Vol] 107 mmol/L High 97-105 [facility] Comment on above: Order Comment: Speci men Type: BLOOD SPECIMEN [facility] Address: [address] [place] [address] Performed By: #### 5 8410-2 #### [facility] [place] [id number] [address] [place] [address] [place] CO2 [Moles/Vol] 25 mmol/L Normal 22-30 [facility] Comment on above: Order Comment: Speci men Type: BLOOD SPECIMEN [facility] Address: [address] [place] [address] Performed By: #### 5 8410-2 #### [facility] [place] [id number] [address] [place] [address] [place] Creatinine [Mass/Vol] 0.59 mg/dL Normal 0.58-0.96 [facility] Comment on above: Order Comment: Speci men Type: BLOOD SPECIMEN [facility] Address: [address] [place], [place] [phone] Performed By: #### 5 8410-2 #### [facility] [place] [id number] [address] [place] [address] [place] ESTIMATED GLOMERULAR FILTRATION RATE 113 mL/min/1.73m??? Normal >=60 [facility] Comment on above: Order Comment: Speci men Type: BLOOD SPECIMEN [facility]ing [facility]: [facility] Address: [address] Result Comment: Randy mated Glomerular Filtration Rate (eGFR) is calculated using the 2020 CKD-EPI creatinine equation. This equation utilizes serum creatinine, sex, and age as parameters. The creatinine assay has traceable calibration to isotope dilution-mass spectrometry. Refer to KDIGO guidelines for clinical interpretation. In patients with unstable renal function, e.g. those with acute kidney injury, the eGFR may not accurately reflect actual GFR. Performed By: #### 5 8410-2 #### [facility] CLIA [id number] [address] [place] [address] [place] Glucose [Mass/Vol] 86 mg/dL Normal 74-99 [facility] Comment on above: Order Comment: [place] fields Type: BLOOD SPECIMEN [facility]ing Facility: [facility] Address: [address] [place] [address] Result Comment: The [employer] (ADA) provides guidance for cutoff values for fasting glucose and random glucose. The ADA defines fasting as no caloric intake for at least 8 hours. Fasting plasma glucose results between 100 to 125 mg/dL indicate increased risk for diabetes (prediabetes). Fasting plasma glucose results greater than or equal to 126 mg/dL meet the criteria for diagnosis of diabetes. In the absence of unequivocal hyperglycemia, results should be confirmed by repeat testing. In a patient with classic symptoms of hyperglycemia or hyperglycemic crisis, random plasma glucose results greater than or equal to 200 mg/dL meet the criteria for diagnosis of diabetes. Reference: Standards of Medical Care in Diabetes 2016, [place] [employer]. Diabetes Care. 2016.39(Suppl 1). Performed By: #### 5 8410-2 #### [facility] CLIA [id number] [facility] [place] [address] [place] Potassium [Moles/Vol] 3.6 mmol/L Low 3.7-5.1 [facility] Comment on above: Order Comment: [place] fields Type: BLOOD SPECIMEN Ordering Facility: [facility] Address: [address] Performed By: #### 5 8410-2 #### [facility] CLIA [id number] [address] [place], [place] [id number] [place] [address] [place] Protein [Mass/Vol] 5.5 g/dL Low 6.3-8.0 [facility] Comment on above: Order Comment: Speci men Type: BLOOD SPECIMEN Ordering Facility: [facility] Address: [address] [place] [address] Performed By: #### 5 8410-2 #### [facility] CLIA [id number] [address] [place] Sodium [Moles/Vol] 144 mmol/L Normal 136-144 [facility] Comment on above: Order Comment: Speci men Type: BLOOD SPECIMEN Ordering Facility: [facility] Address: [address] [place] [address] Performed By: #### 5 8410-2 #### [facility] CLIA [id number] [address] [place] [address] [place] Urea nitrogen [Mass/Vol] 7 mg/dL Normal 7-21 [facility] Comment on above: Order Comment: Speci men Type: BLOOD SPECIMEN Ordering Facility: [facility] Address: [address] [place] [address] Performed By: #### 5 8410-2 #### [facility] CLIA [id number] [address] OF [facility] ED NOTEon 04-22-2023 ED NOTE HNO ID: [id number] Author: Gilda Vera RN Service: ? Author Type: Registered Nurse Type: ED Notes Filed: 04/22/2023 12:51 AM Note Text: Unable to give report, was told RN will call back. [facility] ED NOTE HNO ID: [id number] Author: Jairo Paez RN Service: ? Author Type: Registered Nurse Type: ED Notes Filed: 04/21/2023 11:16 PM Note Text: Report to PIET[facility] Vo [facility] ED NOTE HNO ID: [id number] Author: Jairo Paez RN Service: ? Author Type: Registered Nurse Type: ED Notes Filed: 04/21/2023 10:54 PM Note Text: MD notified that US IV infiltrated upon flushing with saline after CT Normal [facility] ED NOTE HNO ID: [id number] Author: Jairo Paez RN Service: ? Author Type: Registered Nurse Type: ED Notes Filed: 04/21/2023 10:19 PM Note Text: Concrete Craftsman attempted several US Ivs without success. RN attempting US IV. MD aware of situation. Normal [facility] HISTORY PHYSICALon HISTORY PHYSICAL HNO ID: [id number] Author: Yael Li APRN.CNP Service: Hospital Medicine Author Type: Nurse Practitioner Type: HANDP Filed: 04/22/2023 3:06 AM Note Text: DEPARTMENT OF HOSPITAL MEDICINE HISTORY AND PHYSICAL EXAM SERVICE DATE: 04/22/2023 Code Status: Prior SERVICE TIME: 2:49 AM Primary Care Physician: Sean Ruiz DO NIGHT AND WEEKEND COVERAGE: [place] COVERAGE: Days: [phone], please contact via [employer] Nights: [phone] - floor: please page CC Hospitalist night cover [phone] - 4th floor: please page CC Hospitalist night cover [phone] - 5th floor: please page Hospitalist night cover [phone] Subjective CHIEF COMPLAINT: Abdominal pain, N/V/D HPI: This is a 47 year old female who presented the the [place] ED with chief complaint of abdominal pain, nausea, vomiting and diarrhea (current colon prep). Diarrhea has been for three weeks, multiple episodes of small amounts of non bloody. Nausea and vomiting started on 04/19/23 in the evening. Her last meal was on Thursday as she was to start her colon prep which she is still on. While on prep, her pain increased at 0100 and reports a fever at 0900 of 101 F with chills. She treated with Tylenol and improved. She has been treating her pain with Oxy IR 5 mg every six hours for the last week and it no longer has pain relief starting today. She denies CP, SOB, LHD, dizziness, flank pain, urinary symptoms. She had a recent admission (04/06/2023) at [facility] for same complaints of abdominal pain, nausea, vomiting and diarrhea. She was seen by GI and general surgery. Her stool was negative for C. Difficile. EGD was done and unremarkable (see below). Colonoscopy was planned inpatient however, it was postponed d/t incomplete prep. GI recommended increasing fiber in her diet due to excess stool in colon. Noting that it could be the reason for her pain and overflow diarrhea. Patient was discharged with follow up with Dr. Fuentes with repeat colonoscopy planned. 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 Ozuna) and transthoracic vagotomy (08/01/22). Readmitted on 08/11/22 with wound infection and intraabdominal abscess, s/p IANDD and ATB. She was treated for Cdiff in September. She reports chronic abdominal pain and diarrhea since revision surgery up until 04/06/23 admission. EGD 04/09/2023 Impression: - Normal examined jejunum. Biopsied. - Gelacio-en-Y gastrojejunostomy with gastrojejunal anastomosis characterized by healthy appearing mucosa. - Chronic gastritis. Biopsied. - Normal esophagus. Recommendation: - Return patient to [facility] for ongoing care. - Clear liquid diet. - Continue present medications. - Await pathology results. - Perform a colonoscopy tomorrow. Per patient, she is currently on a three day prep and colonoscopy was planned for 04/22/2023, however patient notified GI and was informed that if admitted they will be consulted and she possibly could be scoped as an inpatient. Of note, patient has bottle of Oxy IR with her, this was prescribed last in July 2022 according to her [facility] report that was reviewed. Patient understands that she is not to take any of her home medications that she has in her purse. CTAP- IMPRESSION: 1. Mild colitis, likely infectious or inflammatory. FINDINGS: Lower Thorax: No consolidations Liver: No masses. Gallbladder/Biliary: Cholecystectomy. No biliary ductal dilatation. Spleen: Stable splenic cystic lesion. Pancreas: Unremarkable. Adrenals: No nodules Kidneys: No suspicious masses. No hydronephrosis. Vasculature: No abdominal aortic aneurysm. GI Tract: Status post gastric bypass. Partially fluid-filled colon with mild underlying wall thickening. No evidence for obstruction or appendicitis. Pelvis: Hysterectomy. Underdistended bladder. Mesentery/Peritoneum/Retro peritoneum: No free air or fluid Lymph Nodes: No lymphadenopathy. Bones and soft tissues: No suspicious bone lesions. No acute findings. Plastic Boat Patcher (topogram) images: No additional findings. PAST MEDICAL HISTORY Diagnosis Date Breast mass 11/04/07 Right, biopsy benign Encounter for cosmetic surgery Endometriosis Excess skin of arm Fracture , ankle Localized adiposity Morbid obesity (HCC) Ovarian cyst induced hypertension Thyroid disorder PAST SURGICAL HISTORY Procedure Laterality Date ASSIST ONLY x3 EGD multiple GASTRIC BYPASS HX 12/2021 conversion from gastruc sleeve LAPAROSCOPY SURG CHOLECYSTECTOMY 2005 Cholecystectomy, lap PAST SURGICAL HISTOR (more content not included)... [facility] NURSING PROGon 04-22-2023 NURSING PROG HNO ID: [id number] Author: Cameron Luceor RN Service: Nursing Author Type: Registered Nurse Type: Nursing Progress Note Filed: 04/22/2023 3:01 PM Note Text: PICC/VASCULAR ACCESS PROGRESS NOTE SERVICE DATE: 04/22/2023 SERVICE TIME: 1445 Called to room for difficult IV start. 22G inserted in L AC under ultrasound guidance. Brisk blood return present. Flushed with 20cc NS. Dry dressing to site-CDI. No complications- RN aware. SIGNATURE: Cameron Lucero RN PATIENT NAME: Melina Díaz DATE: April 22, 2023 TIME: 2:59 PM PAGER/CONTACT #: [phone] [facility] NURSING PROG HNO ID: [id number] Author: Hermelindo Soto RN Service: ? Author Type: Registered Nurse Type: Nursing Progress Note Filed: 04/22/2023 1:25 AM Note Text: Transfer Note: PATIENT NAME: Melina Díaz Patient Location: / Room: [facility] Patient transferred into room/unit 408 in stable condition. Patient oriented to unit, room, and call light. Bed low and locked, call light within reach. Actions taken: No futher actions taken at this time. [facility] TOX SCREEN ROUT URon 023 Amphetamines Confirm (U) [Mass/Vol] Negative Normal Negative [facility] Comment on above: Order Comment: Speci men Type: BLOOD SPECIMEN Ordering Facility: [facility] Address: [address] [place] [address] Result Comment: Cuto ff threshold at 1000 ng/mL. Performed By: #### 5 8410-2 #### [facility] CLIA [id number] [place] [address] [place] BARBITURATES, URINE Negative Normal Negative [facility] Comment on above: Order Comment: Speci men Type: BLOOD SPECIMEN Ordering Facility: [facility] Address: [address] [place] [address] Result Comment: Cuto ff threshold at 200 ng/mL. Performed By: #### 5 8410-2 #### [facility] CLIA [id number] [address] [place] [address] [place] BENZODIAZEPINES, UR Negative Normal Negative [facility] Comment on above: Order Comment: Speci men Type: BLOOD SPECIMEN Ordering Facility: [facility] Address: [address] [place] [address] Result Comment: Cuto ff threshold at 200 ng/mL. Performed By: #### 5 8410-2 #### [facility] CLIA [id number] [address] [place] [address] [place] CANNABINOIDS,URINE Negative Normal Negative [facility] Comment on above: Order Comment: Speci men Type: BLOOD SPECIMEN Ordering Facility: [facility] Address: [address] [place] [address] Result Comment: Cuto ff threshold at 50 ng/mL. Performed By: #### 5 8410-2 #### [facility] CLIA [id number] [address] [place] [address] [place] Cocaine Ql (U) Negative Normal Negative [facility] Comment on above: Order Comment: Speci men Type: BLOOD SPECIMEN Ordering Facility: [facility] Address: [address] [place] [address] Result Comment: Cuto ff threshold at 300 ng/mL. Performed By: #### 5 8410-2 #### [facility] CLIA [id number] [address] [place] [address] [place] Ethanol (U) [Mass/Vol] <11 Normal <11 [facility] Comment on above: Order Comment: Speci men Type: BLOOD SPECIMEN Ordering Facility: [facility] Address: [address] [place] [address] Performed By: #### 5 8410-2 #### [facility] CLIA [id number] [address] [place] [address] [place] Opiates Screen Ql (U) Negative Normal Negative [facility] Comment on above: Order Comment: Speci men Type: BLOOD SPECIMEN Ordering Facility: [facility] Address: [address] [place] [address] Result Comment: Cuto ff threshold at 300 ng/mL. Performed By: #### 5 8410-2 #### [facility] [place] [id number] [address] [place] [address] oxyCODONE cutoff Screen (U) [Mass/Vol] Positive Abnormal Negative [facility] Comment on above: Order Comment: Speci men Type: BLOOD SPECIMEN Ordering Facility: [facility] Address: [address] [place] [address] Result Comment: Cuto ff threshold at 100 ng/mL. Performed By: #### 5 8410-2 #### [facility] IA [id number] [address] [place] [address] [place] Phencyclidine Ql (U) Negative Normal Negative [facility] Comment on above: Order Comment: Speci men Type: BLOOD SPECIMEN Ordering Facility: [facility] Address: [address] [place] [address] Result Comment: Cuto ff threshold at 25 ng/mL. Performed By: #### 5 8410-2 #### [facility] CLIA [id number] [address] [place] [address] [place] CBC W Auto Differential pane l (Bld)on 04-21-2023 Basophils (Bld) [#/Vol] 0.07 10*3/uL Normal <0.11 [facility] Comment on above: Order Comment: Speci men Type: BLOOD SPECIMENOrdering Facility: [facility] Address: [address] [place] [place] [address] Performed By: #### 5 7021-8 ####[facility]IA [id number] [address] [place] Basophils/100 WBC (Bld) 1.1 % Normal [facility] Comment on above: Order Comment: Speci men Type: BLOOD SPECIMENOrdering Facility: [facility] Address: [address] [place] [address] Performed By: #### 5 7021-8 ####[facility] [id number] [address] [place] Differential cell count method Nom (Bld) Auto Normal [facility] Comment on above: Order Comment: Speci men Type: BLOOD SPECIMENOrdering Facility: [facility] Address: [address] [place] [place] [address] Performed By: #### 5 7021-8 ####[facility] [id number] [place] [address] [place] Eosinophils (Bld) [#/Vol] 0.13 10*3/uL Normal <0.46 [facility] Comment on above: Order Comment: Speci men Type: BLOOD SPECIMENOrdering Facility: [facility] Address: [address] [address] Performed By: #### 5 7021-8 ####[facility] [id number] [address] [place] Eosinophils/100 WBC (Bld) 2.1 % Normal [facility] Comment on above: Order Comment: Speci men Type: BLOOD SPECIMENOrdering Facility: [facility] Address: [address] [place] [address] Performed By: #### 5 7021-8 ####[facility]IA [id number] [place] [address] [place] Erythrocyte distribution width (RBC) [Ratio] 13.0 % Normal 11.5-15.0 [facility] Comment on above: Order Comment: Speci men Type: BLOOD SPECIMENOrdering Facility: [facility] Address: [address] [place] [address] Performed By: #### 5 7021-8 ####[facility] [id number] [address] [place] Hematocrit (Bld) [Volume fraction] 37.7 % Normal 36.0-46.0 [facility] Comment on above: Order Comment: Speci men Type: BLOOD SPECIMENOrdering Facility: [facility] Address: [address] [place] [address] Performed By: #### 5 7021-8 ####[facility]IA [id number] [place] [address] [place] Hemoglobin (Bld) [Mass/Vol] 12.2 g/dL Normal 11.5-15.5 [facility] Comment on above: Order Comment: Speci men Type: BLOOD SPECIMENOrdering Facility: [facility] Address: [address] [place] [address] Performed By: #### 5 7021-8 ####[facility] [id number] [place] [address] [place] Immature granulocytes (Bld) [#/Vol] 10*3/uL Normal <0.10 [facility] Comment on above: Order Comment: Speci men Type: BLOOD SPECIMENOrdering Facility: [facility] Address: [address] [place] [address] Performed By: #### 5 7021-8 ####[facility] [id number] [address] [place] Immature granulocytes/100 WBC (Bld) 0.2 % Normal [facility] Comment on above: Order Comment: Speci men Type: BLOOD SPECIMENOrdering Facility: [facility] Address: [address] [address] Performed By: #### 5 7021-8 ####[facility] [id number] [address] [place] Lymphocytes (Bld) [#/Vol] 2.69 10*3/uL Normal 1.00-4.00 [facility] Comment on above: Order Comment: Speci men Type: BLOOD SPECIMENOrdering Facility: [facility] Address: [address] [address] Performed By: #### 5 7021-8 ####[facility]IA [id number] [address] [place] Lymphocytes/100 WBC (Bld) 43.0 % Normal [facility] Comment on above: Order Comment: Speci men Type: BLOOD SPECIMENOrdering Facility: [facility] Address: [address] [address] Performed By: #### 5 7021-8 ####[facility]IA [id number] [place] [address] [place] MCH (RBC) [Entitic mass] 28.9 pg Normal 26.0-34.0 [facility] Comment on above: Order Comment: Speci men Type: BLOOD SPECIMENOrdering Facility: [facility] Address: [address] [address] Performed By: #### 5 7021-8 ####[facility]IA [id number] [place] [address] [place] MCHC (RBC) [Mass/Vol] 32.4 g/dL Normal 30.5-36.0 [facility] Comment on above: Order Comment: Speci men Type: BLOOD SPECIMENOrdering Facility: [facility] Address: [address] [address] Performed By: #### 5 7021-8 ####[facility]ORYIA [id number] [place] [address] [place] MCV (RBC) [Entitic vol] 89.3 fL Normal 80.0-100.0 [facility] Comment on above: Order Comment: Speci men Type: BLOOD SPECIMENOrdering Facility: [facility] Address: [address] [address] Performed By: #### 5 7021-8 ####[facility]ORY[facility]IA [id number] [place] [id number] [place] Monocytes (Bld) [#/Vol] 0.50 10*3/uL Normal <0.87 [facility] Comment on above: Order Comment: Speci men Type: BLOOD SPECIMENOrdering Facility: [facility] Address: [address] [address] Performed By: #### 5 7021-8 ####[facility]IA [id number] [address] [place] Monocytes/100 WBC (Bld) 8.0 % Normal [facility] Comment on above: Order Comment: Speci men Type: BLOOD SPECIMENOrdering Facility: [facility] Address: [address] [address] Performed By: #### 5 7021-8 ####[facility]IA [id number] [place] [address] [place] Neutrophils (Bld) [#/Vol] 2.86 10*3/uL Normal 1.45-7.50 [facility] Comment on above: Order Comment: Speci men Type: BLOOD SPECIMENOrdering Facility: [facility] Address: [address] [address] Performed By: #### 5 7021-8 ####[facility] [id number] [place] [id number] [place] Neutrophils/100 WBC (Bld) 45.6 % Normal [facility] Comment on above: Order Comment: Speci men Type: BLOOD SPECIMENOrdering Facility: [facility] Address: [address] [address] Performed By: #### 5 7021-8 ####[facility]ORYCLIA [id number] [place] [address] [place] Nucleated RBC (Bld) [#/Vol] 10*3/uL Normal <0.01 [facility] Comment on above: Order Comment: Speci men Type: BLOOD SPECIMENOrdering Facility: [facility] Address: [address] [address] Performed By: #### 5 7021-8 ####[facility]ORYIA [id number] [place] [address] [place] Nucleated RBC/100 WBC (Bld) [Ratio] 0.0 /100 WBC Normal [facility] Comment on above: Order Comment: Speci men Type: BLOOD SPECIMENOrdering Facility: [facility] Address: [address] [place] [address] Performed By: #### 5 7021-8 ####[facility]ORYIA [id number] [facility] [place] [address] [place] Platelet mean volume (Bld) [Entitic vol] 10.1 fL Normal 9.0-12.7 [facility] Comment on above: Order Comment: Speci men Type: BLOOD SPECIMENOrdering Facility: [facility] Address: [address] [place] [address] Performed By: #### 5 7021-8 ####[facility]IA [id number] [place] [address] [place] Platelets (Bld) [#/Vol] 254 10*3/uL Normal 150-400 [facility] Comment on above: Order Comment: Speci men Type: BLOOD SPECIMENOrdering Facility: [facility] Address: [address] [place] [address] Performed By: #### 5 7021-8 ####[facility]ORYIA [id number] [place] [address] [place] RBC (Bld) [#/Vol] 4.22 10*6/uL Normal 3.90-5.20 [facility] Comment on above: Order Comment: Speci men Type: BLOOD SPECIMENOrdering Facility: [facility] Address: [address] Performed By: #### 5 7021-8 ####[facility]ORYCLIA [id number] [place], [place] [id number] [place] [address] OF [facility] WBC (Bld) [#/Vol] 6.26 10*3/uL Normal 3.70-11.00 [facility] Comment on above: Order Comment: Speci men Type: BLOOD SPECIMENOrdering Facility: [facility] Address: [address] Performed By: #### 5 7021-8 ####[facility]ORYCLIA [id number] [address] [place] Comprehensive metabolic 2000 panelon 04-21-2023 Albumin [Mass/Vol] 4.0 g/dL Normal 3.9-4.9 [facility] Comment on above: Order Comment: Speci men Type: BLOOD SPECIMEN Ordering Facility: [facility] Address: [address] Performed By: #### 5 8410-2 #### [facility] CLIA [id number] [place] ALP [Catalytic activity/Vol] 116 U/L Normal 34-123 [facility] Comment on above: Order Comment: Speci men Type: BLOOD SPECIMEN Ordering Facility: [facility] Address: [address] Performed By: #### 5 8410-2 #### [facility] CLIA [id number] [place] ALT [Catalytic activity/Vol] 37 U/L Normal 7-38 [facility] Comment on above: Order Comment: Speci men Type: BLOOD SPECIMEN Ordering Facility: [facility] Address: [address] Performed By: #### 5 8410-2 #### [facility] CLIA [id number] [place] [address] [place] Anion gap [Moles/Vol] 10 mmol/L Normal 9-18 [facility] Comment on above: Order Comment: Speci men Type: BLOOD SPECIMEN Ordering Facility: [facility] Address: [address] [place], [place] [address] Performed By: #### 5 8410-2 #### [facility] CLIA [id number] [place] [address] [place] AST [Catalytic activity/Vol] 40 U/L High 13-35 [facility] Comment on above: Order Comment: Speci men Type: BLOOD SPECIMEN Ordering Facility: [facility] Address: [address] [place] [address] Performed By: #### 5 8410-2 #### [facility] CLIA [id number] [place] [address] [place] Bilirubin [Mass/Vol] 0.4 mg/dL Normal 0.2-1.3 [facility] Comment on above: Order Comment: Speci men Type: BLOOD SPECIMEN Ordering Facility: [facility] Address: [address] [place], [place] [address] Performed By: #### 5 8410-2 #### [facility] CLIA [id number] [address] [place] [address] [place] Calcium [Mass/Vol] 8.9 mg/dL Normal 8.5-10.2 [facility] Comment on above: Order Comment: Speci men Type: BLOOD SPECIMEN Ordering Facility: [facility] Address: [address] [place], [place] [address] Performed By: #### 5 8410-2 #### [facility] CLIA [id number] [place] [address] [place] Chloride [Moles/Vol] 103 mmol/L Normal 97-105 [facility] Comment on above: Order Comment: Speci men Type: BLOOD SPECIMEN Ordering Facility: [facility] Address: [address] [place], [place] [address] Performed By: #### 5 8410-2 #### [facility] CLIA [id number] [address] [place] [address] [place] CO2 [Moles/Vol] 25 mmol/L Normal 22-30 [facility] Comment on above: Order Comment: Speci men Type: BLOOD SPECIMEN Ordering Facility: [facility] Address: [address] [place], [place] [address] Performed By: #### 5 8410-2 #### [facility] CLIA [id number] [address] [place] [address] [place] Creatinine [Mass/Vol] 0.62 mg/dL Normal 0.58-0.96 [facility] Comment on above: Order Comment: Speci men Type: BLOOD SPECIMEN Ordering Facility: [facility] Address: [address] [place] [address] Performed By: #### 5 8410-2 #### [facility] CLIA [id number] [address] [place] [address] [place] ESTIMATED GLOMERULAR FILTRATION RATE 111 mL/min/1.73m??? Normal >=60 [facility] Comment on above: Order Comment: [place] fields Type: BLOOD SPECIMEN Ordering Facility: [facility] Address: [address] [place] [address] Result Comment: Randy mated Glomerular Filtration Rate (eGFR) is calculated using the 2020 CKD-EPI creatinine equation. This equation utilizes serum creatinine, sex, and age as parameters. The creatinine assay has traceable calibration to isotope dilution-mass spectrometry. Refer to KDIGO guidelines for clinical interpretation. In patients with unstable renal function, e.g. those with acute kidney injury, the eGFR may not accurately reflect actual GFR. Performed By: #### 5 8410-2 #### [facility] CLIA [id number] [address] [place] [address] [place] Glucose [Mass/Vol] 86 mg/dL Normal 74-99 [facility] Comment on above: Order Comment: Sharoni men Type: BLOOD SPECIMEN Ordering Facility: [facility] Address: [address] [address] Result Comment: The [place] Diabetes Association (ADA) provides guidance for cutoff values for fasting glucose and random glucose. The ADA defines fasting as no caloric intake for at least 8 hours. Fasting plasma glucose results between 100 to 125 mg/dL indicate increased risk for diabetes (prediabetes). Fasting plasma glucose results greater than or equal to 126 mg/dL meet the criteria for diagnosis of diabetes. In the absence of unequivocal hyperglycemia, results should be confirmed by repeat testing. In a patient with classic symptoms of hyperglycemia or hyperglycemic crisis, random plasma glucose results greater than or equal to 200 mg/dL meet the criteria for diagnosis of diabetes. Reference: Standards of Medical Care in Diabetes 2016, [place] [employer]. Diabetes Care. 2016.39(Suppl 1). Performed By: #### 5 8410-2 #### [facility] CLIA [id number] [address] [place] [address] [place] Potassium [Moles/Vol] 3.5 mmol/L Low 3.7-5.1 [facility] Comment on above: Order Comment: Speci men Type: BLOOD SPECIMEN Ordering Facility: [facility] Address: [address] [address] Performed By: #### 5 8410-2 #### [facility] CLIA [id number] [address] [place] [address] [place] Protein [Mass/Vol] 6.5 g/dL Normal 6.3-8.0 [facility] Comment on above: Order Comment: Speci men Type: BLOOD SPECIMEN Ordering Facility: [facility] Address: [address] [address] Performed By: #### 5 8410-2 #### [facility] CLIA [id number] [address] [place] [address] [place] Sodium [Moles/Vol] 138 mmol/L Normal 136-144 [facility] Comment on above: Order Comment: Speci men Type: BLOOD SPECIMEN Ordering Facility: [facility] Address: [address] [address] Performed By: #### 5 8410-2 #### [facility] CLIA [id number] [address] [facility] [place] [address] [facility] Urea nitrogen [Mass/Vol] 7 mg/dL Normal - [facility] Comment on above: Order Comment: Speci men Type: BLOOD SPECIMEN Ordering Facility: [facility] Address: [facility] [place] [address] Performed By: #### 5 8410-2 #### [facility] CLIA [id number] [address] [facility] [place] [address] [facility] ED PROV NOTEon 04-21-2023 ED PROV NOTE HNO ID: [id number] Author: Negro Duckworth MD Service: Emergency Medicine Author Type: Physician Type: ED Provider Notes Filed: 04/21/2023 11:59 PM Note Text: ED Provider Note Patient Name: Melina Díaz : 1975 SERVICE DATE: 04/21/23 History Patient presents with: Abdominal Pain: Pt states to have RLQ x 2 days and was referred for appendicitis eval. HPI This is a 47-year-old female presenting to the ED for abdominal pain. She has had diffuse abdominal pain, also noted in both her lower quadrants, over the past few days. She is also had weeks of pain that is gradually worsened over the past few days. She reports no flank pain. Denies any urinary symptoms. She had diarrhea and is currently doing a bowel cleanse for colonoscopy which is scheduled for tomorrow. She reports no fevers but has had chills. She is also had nausea and nonbloody vomiting. She reports that home medications have not helped her pain. PAST MEDICAL HISTORY Diagnosis Date - Breast mass 11/04/07 Right, biopsy benign - Encounter for cosmetic surgery - Endometriosis - Excess skin of arm - Fracture , ankle - Localized adiposity - Morbid obesity (HCC) - Ovarian cyst - induced hypertension - Thyroid disorder PAST SURGICAL HISTORY Procedure Laterality Date - ASSIST ONLY x3 - EGD multiple - GASTRIC BYPASS HX 12/2021 conversion from gastruc sleeve - LAPAROSCOPY SURG CHOLECYSTECTOMY 2004 Cholecystectomy, lap - PAST SURGICAL HISTORY OF 10/28/2011 gastric sleeve - PAST SURGICAL HISTORY OF 2011 excision of goiter - PAST SURGICAL HISTORY OF thyroid mass removed - REMOVAL STOMACH,GELACIO-EN-Y 07/29/2022 - TOTAL ABDOMINAL HYSTERECT W/WO RMVL TUBE OVARY 05/01/2010-05/2011 Hysterectomy, partial uterus then completion FAMILY HISTORY Problem Relation Age of Onset - COPD Mother - Hypertension Mother - other (hypoglycemia) Mother - Emphysema Father - Coronary Artery Disease Father - Ischemic Heart Disease Father 58 s/p stents - Hypertension Father - Asthma Sister 1/2 sister with female cysts - other (unkown) Sister BiPolar-Bulemia - None Brother 1/2--unkown - Thyroid Other 1st cousin - ? Grave's Social History Tobacco Use - Smoking status: Never - Smokeless tobacco: Never Vaping Use - Vaping Use: Never used Substance and Sexual Activity - Alcohol use: Not Currently - Drug use: No Comment: denies tx for drug/alcohol abuse in the past. - Sexual activity: Not on file ALLERGIES Allergen Reactions - Gabapentin Angioedema Patient reports throat swelling with gabapentin. - Tramadol Hives - Adhesive Tape (Serina* Rash, Swelling, Itching - Nsaids (Non-Steroid* Contraindication-Medical Surgical S/p gelacio en y gastric bypass - Paxil [Paroxetine] Intolerance Gi upset - Scopolamine Other: See Comments Blurred vision - Toradol [Ketorolac * Hives, Swelling Review of Systems Constitutional: Positive for chills. Negative for fever. HENT: Negative for congestion. Respiratory: Negative for cough and shortness of breath. Cardiovascular: Negative for chest pain, palpitations and leg swelling. Gastrointestinal: Positive for abdominal pain, nausea and vomiting. Negative for diarrhea. Genitourinary: Negative for dysuria, flank pain and hematuria. Musculoskeletal: Negative for back pain and neck pain. Skin: Negative for rash and wound. Neurological: Negative for dizziness, weakness, light-headedness and headaches. Psychiatric/Behavioral: Negative for confusion. Physical Exam Vitals [04/21/23 1608] BP Pulse Temp Temp src Resp SpO2 Weight Height 138/78 64 36.7 ?C (98 ?F) -- 20 98 % 90.7 kg (200 lb) -- Physical Exam Vitals and nursing note reviewed. Constitutional: General: She is not in acute distress. Appearance: She is not ill-appearing, toxic-appearing or diaphoretic. HENT: Head: Normocephalic and atraumatic. Eyes: Extraocular Movements: Extraocular movements intact. Conjunctiva/sclera: Conjunctivae normal. Cardiovascular: Rate and Rhythm: Normal rate. Pulses: Normal pulses. Pulmonary: Effort: Pulmonary effort is normal. No respiratory distress. Breath sounds: Normal breath sounds. Abdominal: General: There is no distension. Palpations: Abdomen is soft. Tenderness: There is abdominal tenderness. There is no right CVA tenderness, left CVA tenderness, guarding or rebound. Musculoskeletal: General: No deformity. Normal range of motion. Cervical back: Normal range of motion and neck supple. Skin: General: Skin is warm and dry. Neurological: General: No focal deficit present. Mental Status: She is alert and oriented to person, place, and time. Psychiatric: Behavior: Behavior normal. Thought Content: Thought content normal. Diagnostic Testing ED Labs Ordered and Reviewed COMP METABOLIC PANEL - Abnormal; Notable for the following components: R (more content not included)... Normal [facility] PANC ELASTASE, FECALon 04-21 PANC ELASTASE, FECAL 61 ug/g Low >=100 [facility] Comment on above: Order Comment: Speci men Type: STOOL SPECIMENOrdering Facility: [facility] Address: [address] [place] [address], [place] [address] Result Comment: REFE RENCE INTERVAL: Pancreatic Elastase Fecal by Immunoassay Less than 100 ug/g............Severe insufficiency 100 - 199 ug/g................Moderate insufficiency 200 ug/g or greater...........NormalINTERPRETIVE INFORMATION: Pancreatic Elastase Fecal by ImmunoassayReference intervals do not apply for infants less than one monthold.Performed By: [address] [place], [place] [address]Zeejgcclha Director: Leslie Luna MD, PhDCLIA Number: [id number] Performed By: #### P ANCEF ####[facility] LABORATORIESCLIA [id number] [place] [address] Urinalysis complete pnl Uron 04-21-2023 Urinalysis complete panel (U) COLOR: Yellow CLARITY: Clear GLUCOSE, URINE: Negative BILIRUBIN, URINE: Negative KETONES, URINE: 1+ SPECIFIC GRAVITY, UR: 1.024 HEMOGLOBIN/BLOOD, UR: Trace PH, URINE: 6.0 PROTEIN, URINE: Trace UROBILINOGEN: Normal NITRITES: Negative LEUKEST: 250 Danielle/uL WBC, URINE: >25 /HPF RBC, URINE: 6-10 /HPF BACTERIA: Few SQUAMOUS EPITHELIAL CELLS: Few HYALINE CASTS: >10 /LPF CULTURE, URINE: Mixed microbiota, including predominantly: ORGANISM ID: 1 >=100,000 CFU/ml Escherichia coli ORGANISM ID: 1 (ESCHERICHIA COLI) ANTIBIOTIC INTERPRETATION CHARLEE STATUS REFERENCE RANGE Ampicillin S 8 F Susceptible <=8 , Intermediate >8 , Resistant >16 Cefazolin S <=4 F Susceptible 0-16 , Intermediate <0 or >16 , Resistant >16 Ceftriaxone S <=1 F Susceptible <=1 , Intermediate >1 , Resistant >=4 Cefepime S <=1 F Susceptible <=2 , Susceptible-Dose Dependent >2 , Resistant >=16 Ertapenem S <=0.5 F Susceptible <=0.5 , Intermediate >.5 , Resistant >1 Meropenem S <=0.25 F Susceptible <=1 , Intermediate >1 , Resistant >2 Ampicillin/Sulbact S 4 F Susceptible <=8 , Intermediate >8 , Resistant >16 Piperacillin/Tazobac S <=4 F Susceptible <=16 , Intermediate >16 , Resistant >64 Gentamicin S <=1 F Susceptible <=4 , Intermediate >4 , Resistant >8 Tobramycin S <=1 F Susceptible <=4 , Intermediate >4 , Resistant >8 Trimeth sulfameth S <=20 F Susceptible <=40 , Resistant >40 Ciprofloxacin S <=0.25 F Susceptible <0.5 , Intermediate >=.5 , Resistant >=1 Nitrofurantoin S <=16 F Susceptible <=32 , Intermediate >32 , Resistant >64 Abnormal [facility] Comment on above: Order Comment: Speci men Type: URINE SPECIMENOrdering Facility: [facility] Address: [address] [place] [address] Performed By: #### 2 4356-8 ####[facility]ATORYCLIA [id number] [place] [address] [place] [facility] LABCLIA [id number] [address] [place] CNPNon 04-13-[address] [facility] CNDSon 04-12-2023 CNDS Normal [facility] HEALTHon 04-11-2023 [facility] Normal [facility] CBC W Auto Differential pane l (Bld)on 04-11-2023 Basophils (Bld) [#/Vol] 0.05 10*3/uL Normal <0.11 [facility] Comment on above: Order Comment: Speci men Type: BLOOD SPECIMENOrdering Facility: [facility] Address: [address] [place] [address] Performed By: #### 5 7021-8 ####[facility]ORATORYCLIA [id number] [place] [address] [place] Basophils/100 WBC (Bld) 1.1 % Normal [facility] Comment on above: Order Comment: Speci men Type: BLOOD SPECIMENOrdering Facility: [facility] Address: [address] [place] [address] Performed By: #### 5 7021-8 ####[facility]ATORYCLIA [id number] [place] [address] [place] Differential cell count method Nom (Bld) Auto Normal [facility] Comment on above: Order Comment: Speci men Type: BLOOD SPECIMENOrdering Facility: [facility] Address: [address] [address] Performed By: #### 5 7021-8 ####[facility] LABORATORYCLIA [id number] [place] [address] [place] Eosinophils (Bld) [#/Vol] 0.16 10*3/uL Normal <0.46 [facility] Comment on above: Order Comment: Speci men Type: BLOOD SPECIMENOrdering Facility: [facility] Address: [address] [address] Performed By: #### 5 7021-8 ####[facility] LABORATORYCLIA [id number] [place] [address] [place] Eosinophils/100 WBC (Bld) 3.7 % Normal [facility] Comment on above: Order Comment: Speci men Type: BLOOD SPECIMENOrdering Facility: [facility] Address: [address] [place] [address] Performed By: #### 5 7021-8 ####[facility] LABORATORYCLIA [id number] [place] [address] [place] Erythrocyte distribution width (RBC) [Ratio] 13.1 % Normal 11.5-15.0 [facility] Comment on above: Order Comment: Speci men Type: BLOOD SPECIMENOrdering Facility: [facility] Address: [address] [place] [address] Performed By: #### 5 7021-8 ####[facility] LABORATORYCLIA [id number] [place] [address] [place] Hematocrit (Bld) [Volume fraction] 35.8 % Low 36.0-46.0 [facility] Comment on above: Order Comment: Speci men Type: BLOOD SPECIMENOrdering Facility: [facility] Address: [address] [address] Performed By: #### 5 7021-8 ####[facility] LABORATORYCLIA [id number] [place] [address] [place] Hemoglobin (Bld) [Mass/Vol] 11.6 g/dL Normal 11.5-15.5 [facility] Comment on above: Order Comment: Speci men Type: BLOOD SPECIMENOrdering Facility: [facility] Address: [address] [address] Performed By: #### 5 7021-8 ####[facility] LABORATORYCLIA [id number] [address] [place] Immature granulocytes (Bld) [#/Vol] 10*3/uL Normal <0.10 [facility] Comment on above: Order Comment: Speci men Type: BLOOD SPECIMENOrdering Facility: [facility] Address: [address] [address] Performed By: #### 5 7021-8 ####[facility] LABORATORYCLIA [id number] [address] STATES [facility] Immature granulocytes/100 WBC (Bld) 0.2 % Normal [facility] Comment on above: Order Comment: Speci men Type: BLOOD SPECIMENOrdering Facility: [facility] Address: [address] [address] Performed By: #### 5 7021-8 ####[facility] LABORATORYCLIA [id number] [place] [address] [place] Lymphocytes (Bld) [#/Vol] 1.72 10*3/uL Normal 1.00-4.00 [facility] Comment on above: Order Comment: Speci men Type: BLOOD SPECIMENOrdering Facility: [facility] Address: [address] [address] Performed By: #### 5 7021-8 ####[facility] LABORATORYCLIA [id number] [address] STATES [facility] Lymphocytes/100 WBC (Bld) 39.3 % Normal [facility] Comment on above: Order Comment: Speci men Type: BLOOD SPECIMENOrdering Facility: [facility] Address: [address] [place] [address] Performed By: #### 5 7021-8 ####[facility] LABORATORYCLIA [id number] [place] [address] [place] MCH (RBC) [Entitic mass] 29.5 pg Normal 26.0-34.0 [facility] Comment on above: Order Comment: Speci men Type: BLOOD SPECIMENOrdering Facility: [facility] Address: [address] [place] [address] Performed By: #### 5 7021-8 ####[facility] LABORATORYCLIA [id number] [place] [address] [place] MCHC (RBC) [Mass/Vol] 32.4 g/dL Normal 30.5-36.0 [facility] Comment on above: Order Comment: Speci men Type: BLOOD SPECIMENOrdering Facility: [facility] Address: [address] [place] [address] Performed By: #### 5 7021-8 ####[facility] LABORATORYCLIA [id number] [place] [address] [place] MCV (RBC) [Entitic vol] 91.1 fL Normal 80.0-100.0 [facility] Comment on above: Order Comment: Speci men Type: BLOOD SPECIMENOrdering Facility: [facility] Address: [address] [place] [address] Performed By: #### 5 7021-8 ####[facility] LABORATORYCLIA [id number] [place] [address] [place] Monocytes (Bld) [#/Vol] 0.40 10*3/uL Normal <0.87 [facility] Comment on above: Order Comment: Speci men Type: BLOOD SPECIMENOrdering Facility: [facility] Address: [address] [place] [address] Performed By: #### 5 7021-8 ####[facility] LABORATORYCLIA [id number] [address] [place] Monocytes/100 WBC (Bld) 9.1 % Normal [facility] Comment on above: Order Comment: Speci men Type: BLOOD SPECIMENOrdering Facility: [facility] Address: [address] [place] [address] Performed By: #### 5 7021-8 ####[facility] LABORATORYCLIA [id number] [place] [address] [place] Neutrophils (Bld) [#/Vol] 2.04 10*3/uL Normal 1.45-7.50 [facility] Comment on above: Order Comment: Speci men Type: BLOOD SPECIMENOrdering Facility: [facility] Address: [address] [address] Performed By: #### 5 7021-8 ####[facility] LABORATORYCLIA [id number] [place] [address] [place] Neutrophils/100 WBC (Bld) 46.6 % Normal [facility] Comment on above: Order Comment: Speci men Type: BLOOD SPECIMENOrdering Facility: [facility] Address: [address] [address] Performed By: #### 5 7021-8 ####[facility] LABORATORYCLIA [id number] [place] [address] [place] Nucleated RBC (Bld) [#/Vol] 10*3/uL Normal <0.01 [facility] Comment on above: Order Comment: Speci men Type: BLOOD SPECIMENOrdering Facility: [facility] Address: [address] [address] Performed By: #### 5 7021-8 ####[facility] LABORATORYCLIA [id number] [place] [address] [place] Nucleated RBC/100 WBC (Bld) [Ratio] 0.0 /100 WBC Normal [facility] Comment on above: Order Comment: Speci men Type: BLOOD SPECIMENOrdering Facility: [facility] Address: [address] [address] Performed By: #### 5 7021-8 ####[facility] LABORATORYCLIA [id number] [place] [address] [place] Platelet mean volume (Bld) [Entitic vol] 9.8 fL Normal 9.0-12.7 [facility] Comment on above: Order Comment: Speci men Type: BLOOD SPECIMENOrdering Facility: [facility] Address: [address] [address] Performed By: #### 5 7021-8 ####[facility] LABORATORYCLIA [id number] [place] [address] [place] Platelets (Bld) [#/Vol] 206 10*3/uL Normal 150-400 [facility] Comment on above: Order Comment: Speci men Type: BLOOD SPECIMENOrdering Facility: [facility] Address: [address] [place] [address] Performed By: #### 5 7021-8 ####[facility] LABORATORYCLIA [id number] [place] [address] [place] RBC (Bld) [#/Vol] 3.93 10*6/uL Normal 3.90-5.20 [facility] Comment on above: Order Comment: Speci men Type: BLOOD SPECIMENOrdering Facility: [facility] Address: [address] [place] [address] Performed By: #### 5 7021-8 ####[facility] LABORATORYCLIA [id number] [address] [place] WBC (Bld) [#/Vol] 4.38 10*3/uL Normal 3.70-11.00 [facility] Comment on above: Order Comment: Speci men Type: BLOOD SPECIMENOrdering Facility: [facility] Address: [address] [place] [address] Performed By: #### 5 7021-8 ####[facility] LABORATORYCLIA [id number] [place] [address] [place] Comprehensive metabolic 2000 panelon 04-11-2023 Albumin [Mass/Vol] 3.7 g/dL Low 3.9-4.9 [facility] Comment on above: Order Comment: Speci men Type: BLOOD SPECIMENOrdering Facility: [facility] Address: [address] [place] [address] Performed By: #### 2 4323-8, 3040-3 ####[facility] LABORATORYCLIA [id number] [place] [address] [place] ALP [Catalytic activity/Vol] 116 U/L Normal 34-123 [facility] Comment on above: Order Comment: Speci men Type: BLOOD SPECIMENOrdering Facility: [facility] Address: [address] [address] Performed By: #### 2 4323-8, 0-3 ####[facility] LABORATORYCLIA [id number] [address] [place] ALT [Catalytic activity/Vol] 27 U/L Normal 7-38 [facility] Comment on above: Order Comment: Speci men Type: BLOOD SPECIMENOrdering Facility: [facility] Address: [address] [address] Performed By: #### 2 38, 3039-3 ####[facility] LABORATORYCLIA [id number] [place] [address] [place] Anion gap [Moles/Vol] 8 mmol/L Low 9-18 [facility] Comment on above: Order Comment: Speci men Type: BLOOD SPECIMENOrdering Facility: [facility] Address: [address] [address] Performed By: #### 2 4323-04, 3039-3 ####[facility] LABORATORYCLIA [id number] [address] [place] AST [Catalytic activity/Vol] 23 U/L Normal 13-35 [facility] Comment on above: Order Comment: Speci men Type: BLOOD SPECIMENOrdering Facility: [facility] Address: [address] [address] Performed By: #### 2 8, 3039-3 ####J[facility] LABORATORYCLIA [id number] [place] [address] [place] Bilirubin [Mass/Vol] 0.3 mg/dL Normal 0.2-1.3 [facility] Comment on above: Order Comment: Speci men Type: BLOOD SPECIMENOrdering Facility: [facility] Address: [address] [address] Performed By: #### 2 43238, 0-3 ####JUANPABLO LABORATORYCLIA [id number] [place] [address] [place] Calcium [Mass/Vol] 8.7 mg/dL Normal 8.5-10.2 [facility] Comment on above: Order Comment: Speci men Type: BLOOD SPECIMENOrdering Facility: [facility] Address: [address] [address] Performed By: #### 2 4323-8, 3040-3 ####[facility] LABORATORYCLIA [id number] [place] [address] [place] Chloride [Moles/Vol] 103 mmol/L Normal 97-105 [facility] Comment on above: Order Comment: Speci men Type: BLOOD SPECIMENOrdering Facility: [facility] Address: [address] [address] Performed By: #### 2 4323-8, 0-3 ####[facility] LABORATORYCLIA [id number] [place] [address] [place] CO2 [Moles/Vol] 29 mmol/L Normal 22-30 [facility] Comment on above: Order Comment: Speci men Type: BLOOD SPECIMENOrdering Facility: [facility] Address: [address] [address] Performed By: #### 2 4323-8, 0-3 ####[facility] LABORATORYCLIA [id number] [place] [address] [place] Creatinine [Mass/Vol] 0.87 mg/dL Normal 0.58-0.96 [facility] Comment on above: Order Comment: Speci men Type: BLOOD SPECIMENOrdering Facility: [facility] Address: [address] [address] Performed By: #### 2 4323-8, 3040-3 ####[facility] LABORATORYCLIA [id number] [address] OF [place] ESTIMATED GLOMERULAR FILTRATION RATE 83 mL/min/1.73m??? Normal >=60 [facility] Comment on above: Order Comment: Speci men Type: BLOOD SPECIMENOrdering Facility: [facility] Address: [address] [place], [place] [address] Result Comment: Randy mated Glomerular Filtration Rate (eGFR) is calculated using the 2020 CKD-EPI creatinine equation. This equation utilizes serum creatinine, sex, and age as parameters. The creatinine assay has traceable calibration to isotope dilution-mass spectrometry. Refer to KDIGO guidelines for clinical interpretation. In patients with unstable renal function, e.g. those with acute kidney injury, the eGFR may not accurately reflect actual GFR. Performed By: #### 2 4323-8, 3039-3 ####JUANPABLO LABORATORYCLIA [id number] [address] [address] [place] Glucose [Mass/Vol] 78 mg/dL Normal 74-99 [facility] Comment on above: Order Comment: [place] fields Type: BLOOD SPECIMENOrdering Facility: [facility] Address: [address] [address] Result Comment: The [place] Diabetes Association (ADA) provides guidance for cutoff values for fasting glucose and random glucose. The ADA defines fasting as no caloric intake for at least 8 hours. Fasting plasma glucose results between 100 to 125 mg/dL indicate increased risk for diabetes (prediabetes).Fasting plasma glucose results greater than or equal to 126 mg/dL meet the criteria for diagnosis of diabetes. In the absence of unequivocal hyperglycemia, results should be confirmed by repeat testing. In a patient with classic symptoms of hyperglycemia or hyperglycemic crisis, random plasma glucose results greater than or equal to 200 mg/dL meet the criteria for diagnosis of diabetes.Reference: Standards of Medical Care in Diabetes 2016, [place] [employer] Association. Diabetes Care. 2016.39(Suppl 1). Performed By: #### 2 4323-8, 3039-3 ####JUANPABLO LABORATORYCLIA [id number] [address] [address] [place] Potassium [Moles/Vol] 4.1 mmol/L Normal 3.7-5.1 [facility] Comment on above: Order Comment: [place] fields Type: BLOOD SPECIMENOrdering Facility: [facility] Address: [address] [id number] Performed By: #### 2 4323-8, 3039-3 ####[facility] LABORATORYCLIA [id number] [address] [place] Protein [Mass/Vol] 6.0 g/dL Low 6.3-8.0 [facility] Comment on above: Order Comment: Speci men Type: BLOOD SPECIMENOrdering Facility: [facility] Address: [address] [address] Performed By: #### 2 4323-8, 3040-3 ####[facility] LABORATORYCLIA [id number] [place] [address] [place] Sodium [Moles/Vol] 140 mmol/L Normal 136-144 [facility] Comment on above: Order Comment: Speci men Type: BLOOD SPECIMENOrdering Facility: [facility] Address: [address] [place] [address] Performed By: #### 2 4323-8, 3040-3 ####JUANPABLO LABORATORYCLIA [id number] [address] STATES [facility] Urea nitrogen [Mass/Vol] 7 mg/dL Normal 7-21 [facility] Comment on above: Order Comment: Speci men Type: BLOOD SPECIMENOrdering Facility: [facility] Address: [address] [address] Performed By: #### 2 4323-8, 3040-3 ####JUANPABLO LABORATORYCLIA [id number] [place] [address] [place] Lipase SerPl-cCncon 04-11-20 23 Lipase [Catalytic activity/Vol] 8 U/L Low 16-61 [facility] Comment on above: Order Comment: Speci men Type: BLOOD SPECIMENOrdering Facility: [facility] Address: [address] [address] Performed By: #### 2 4323-8, 3040-3 ####[facility] LABORATORYCLIA [id number] [place] [address] [place] URINALYSIS, REFLEX MICROSCOP ICon 04-11-2023 Bilirubin Ql (U) Negative Normal Negative [facility] Comment on above: Order Comment: Speci men Type: URINE SPECIMENOrdering Facility: [facility] Address: [address] [place], [place] [phone] Performed By: #### L [id number] ####[facility] LABORATORYCLIA [id number] [place] [address] [place] Clarity (Unsp spec) Clear Normal Clear [facility] Comment on above: Order Comment: Speci men Type: URINE SPECIMENOrdering Facility: [facility] Address: [address] [address] Performed By: #### L [id number] ####[facility] LABORATORYCLIA [id number] [place] [address] [place] Color (U) Light Yellow Normal Yellow [facility] Comment on above: Order Comment: Speci men Type: URINE SPECIMENOrdering Facility: [facility] Address: [address] [address] Performed By: #### L [id number] ####[facility] LABORATORYCLIA [id number] [place] [address] [place] Glucose Test strip (U) [Mass/Vol] Negative Normal Trace, Negative [facility] Comment on above: Order Comment: Speci men Type: URINE SPECIMENOrdering Facility: [facility] Address: [address] [address] Performed By: #### L [id number] ####[facility] LABORATORYCLIA [id number] [place] [address] [place] Hemoglobin Ql (U) Negative Normal Negative, Trace [facility] Comment on above: Order Comment: Speci men Type: URINE SPECIMENOrdering Facility: [facility] Address: [address] [address] Performed By: #### L [id number] ####[facility] LABORATORYCLIA [id number] [place] [address] [place] Ketones Ql (U) Negative Normal Negative, Trace [facility] Comment on above: Order Comment: Speci men Type: URINE SPECIMENOrdering Facility: [facility] Address: [address] [address] Performed By: #### L [id number] ####[facility] LABORATORYCLIA [id number] [address] Leukocyte esterase Test strip Ql (U) Negative Normal Negative, 25 Danielle/uL [facility] Comment on above: Order Comment: Speci men Type: URINE SPECIMENOrdering Facility: [facility] Address: [address] [place] [address] Performed By: #### L [id number] ####[facility] LABORATORYCLIA [id number] [place] [address] [place] Nitrite Ql (U) Negative Normal Negative [facility] Comment on above: Order Comment: Speci men Type: URINE SPECIMENOrdering Facility: [facility] Address: [address] [place] [address] Performed By: #### L [id number] ####[facility] LABORATORYCLIA [id number] [place] [address] [place] pH (U) 7.0 [pH] Normal 5.0-8.0 [facility] Comment on above: Order Comment: Speci men Type: URINE SPECIMENOrdering Facility: [facility] Address: [address] [place] [address] Performed By: #### L [id number] ####[facility] LABORATORYCLIA [id number] [place] [address] [place] Protein (U) [Mass/Vol] Negative Normal Trace, Negative [facility] Comment on above: Order Comment: Speci men Type: URINE SPECIMENOrdering Facility: [facility] Address: [address] [place] [address] Performed By: #### L [id number] ####[facility] LABORATORYCLIA [id number] [place] [address] [place] Specific gravity (U) [Rel density] 1.007 Normal 1.005-1.03 0 [facility] Comment on above: Order Comment: Speci men Type: URINE SPECIMENOrdering Facility: [facility] Address: [address] [place] [address] Performed By: #### L [id number] ####[facility] LABORATORYCLIA [id number] [address] [place] Urobilinogen Ql (U) Negative Normal Negative [facility] Comment on above: Order Comment: Speci men Type: URINE SPECIMENOrdering Facility: [facility] Address: [address] [address] Performed By: #### L [id number] ####[facility] LABORATORYCLIA [id number] [address] [place] XR ABDOMEN 1V SUPINEon 04-11 XR ABDOMEN 1V SUPINE Normal [facility] ANES POSTPROC EVALon 023 ANES POSTPROC EVAL Normal [facility] ANES PRE-OPon 04-10-2023 ANES PRE-OP Normal [facility] CASE MANAGEMon 04-10-2023 CASE MANAGEM [facility] CNPNon 04-10-2023 CNPN [facility] CONSULT PROGon 04-10-2023 CONSULT PROG [facility] CONSULT PROG [facility] NURSING PROGon 04-10-2023 NURSING PROG [facility] SURGICAL PATHOLOGYon 023 CASE REPORT [facility] Comment on above: Order Comment: Speci men Type: TISSUE SPECIMENOrdering Facility: [facility] Address: [address] [address] Result Comment: Surg ical Pathology Report Case: [id number] Provider: Lorene Shay MD Collected: 04/10/2023 09:04 AMOrdering Location: [facility] Received: 04/10/2023 09:40 AM Endoscopy - ENDOPathologist: Gio Ward MDSpecimen: COLON BIOPSY Performed By: #### S ####ANNY LARSEN LABORATORYCLIA [id number] [place] [address] [place] AMERICASELECT [facility] LABCLIA [id number] [address] OF [facility] FINAL DIAGNOSIS Normal [facility] Comment on above: Order Comment: Speci men Type: TISSUE SPECIMENOrdering Facility: [facility] Address: [address] [address] Result Comment: Nick thibodeaux, biopsy:- Colonic mucosa with no pathologic diagnostic abnormality; negative for dysplasia or malignancy. Performed By: #### S ####[facility] LABORATORYCLIA [id number] [address] LABCLIA [id number] [address] [place] FINAL PERFORMING LAB Normal [facility] Comment on above: Order Comment: Speci men Type: TISSUE SPECIMENOrdering Facility: [facility] Address: [address] [address] Result Comment: Diag nostic interpretation performed at [facility], [address] [address] CLIA# [id number] Director: Gio Ward M.D. Performed By: #### S ####[facility] LABORATORYCLIA [id number] [address] LABCLIA [id number] [address] [place] GROSS DESCRIPTION A. COLON BIOPSY Normal [facility] Comment on above: Order Comment: Speci men Type: TISSUE SPECIMENOrdering Facility: [facility] Address: [address] [address] Result Comment: Rece ived in formalin are multiple pieces of rodriguez, soft tissue aggregating to 0.8 x 0.5 x 0.2 cm. Totally submitted in two cassettes.CL April 10, 2023 12:00 PMGross examination performed at [facility], [address] [place] [address] Performed By: #### S ####[facility] LABORATORYCLIA [id number] [address] LABCLIA [id number] [address] [place] ANES POSTPROC EVALon 023 ANES POSTPROC EVAL Normal [facility] ANES PRE-OPon 04-09-2023 ANES PRE-OP Normal [facility] CONSULT PROGon 04-09-2023 CONSULT PROG Normal [facility] NURSING PROGon 04-09-2023 NURSING PROG Normal [facility] NURSING PROG Normal [facility] SURGICAL PATHOLOGYon 023 CASE REPORT Normal [facility] Comment on above: Order Comment: [place] Type: TISSUE SPECIMENOrdering Facility: [facility] Address: [address] [place], [place] [phone] Result Comment: Surg ical Pathology Report Case: [id number] Provider: Leslie Teran DO Collected: 04/09/2023 11:33 AMOrdering Location: [facility] [id number] Received: 04/09/2023 12:22 PMPathologist: Jordan Lyons MDSpecimens: A) - SMALL INTESTINE BIOPSY, evaluate for celiac disease B) - STOMACH BIOPSY, eval for H Pylori Performed By: #### S ####[facility] LABCLIA [id number] [facility]ERK [id number] [place] [address] STATES [facility] DIAGNOSIS COMMENT Normal [facility] Comment on above: Order Comment: [place] fields Type: TISSUE SPECIMENOrdering Facility: [facility] Address: [address] [place], [place] [phone] Result Comment: Give n the background of chronic gastritis a Helicobacter pylori immunostain was performed on block B1 and is negative for Helicobacter pylori organisms.Laboratory Developed Test (LDT) Disclaimer:Performance characteristics of immunohistochemical, immunofluorescent and chromogenic in-situ hybridization tests have been determined by the performing laboratory within [facility]???s Jey Arroyo [facility] Pathology and Laboratory Medicine [place] ([facility], [facility], [facility], [facility], [facility], or [facility]) in a manner consistent with CLIA requirements. One or more of these tests have not been cleared or approved by the FDA. RT[facility]PL[facility] is regulated under CLIA as qualified to perform high-complexity testing. These tests are used for clinical purposes. They should not be regarded as investigational or for research. Positive and negative controls stain appropriately. Performed By: #### S ####[facility] LABCLIA [id number] [address] FINAL DIAGNOSIS Normal [facility] Comment on above: Order Comment: Speci men Type: TISSUE SPECIMENOrdering Facility: [facility] Address: [address] [address] Result Comment: A. S mall intestine, biopsy:-Small intestinal mucosa with no diagnostic alteration-No evidence of celiac diseaseB. Stomach, biopsy:-Oxyntic mucosa with chronic inactive gastritis-Negative for Helicobacter pylori Performed By: #### S ####[facility] LABCLIA [id number] [address] FINAL PERFORMING LAB Normal [facility] Comment on above: Order Comment: Speci men Type: TISSUE SPECIMENOrdering Facility: [facility] Address: [address] [address] Result Comment: Diag nostic interpretation performed at [facility], [address] [address] CLIA# [id number] Director: Ronald Jones M.D. Performed By: #### S ####[facility] LABCLIA [id number] [address] GROSS DESCRIPTION Normal [facility] Comment on above: Order Comment: Speci men Type: TISSUE SPECIMENOrdering Facility: [facility] Address: [address] [address] Result Comment: A. S MALL INTESTINE BIOPSYReceived in formalin are multiple pieces of rodriguez, soft tissue aggregating to 0.7 x 0.2 x 0.2 cm. Totally submitted in formalin in one cassette.B. STOMACH BIOPSYReceived in formalin are multiple pieces of rodriguez, soft tissue aggregating to 0.6 x 0.2 x 0.1 cm. Totally submitted in formalin in one cassette.Gross examination performed at [facility], [address] [facility], [place] [address] 04/09/2023 4:56 PM Performed By: #### S ####[facility] LABCLIA [id number] [facility] [id number] [place], [place] [address] [place] TSH SerPl-aCncon 04-09-2023 TSH Qn 2.830 m[IU]/L Normal 0.270-4.20 0 [facility] Comment on above: Order Comment: Speci men Type: BLOOD SPECIMENOrdering Facility: [facility] Address: [address] [place] [address] Result Comment: If t he patient is , TSH reference range varies by gestational period:First Trimester (weeks 9-12): 0.180-2.990 mIU/LSecond Trimester: 0.110-3.980 mIU/LThird Trimester: 0.480-4.710 mIU/Julissa Dumont et al. A Practical Approach for the Verifications and Determination of Site- and Trimester-Specific Reference Intervals for Thyroid Function tests in . Thyroid, 2019:29:3:412-420. Irvin Haddad, et al. 2017 Guidelines of the [place] Thyroid Association for the Diagnosis and Management of Thyroid Disease during and the . Thyroid, 2017:27:3:315-389. Performed By: #### 3 016-3 ####[facility] LABORATORYCLIA [id number] [place] [address] [place] Upper GI endoscopyon 023 Upper GI endoscopy Normal [facility] Basic metabolic 2000 panelon 04-08-2023 Anion gap [Moles/Vol] 10 mmol/L Normal 9-18 [facility] Comment on above: Order Comment: Speci men Type: BLOOD SPECIMENOrdering Facility: [facility] Address: [address] [place] [address] Performed By: #### 2 4321-2 ####[facility] LABORATORYCLIA [id number] [place] [address] [place] Calcium [Mass/Vol] 9.1 mg/dL Normal 8.5-10.2 [facility] Comment on above: Order Comment: Speci men Type: BLOOD SPECIMENOrdering Facility: [facility] Address: [address] [address] Performed By: #### 2 4321-2 ####[facility] LABORATORYCLIA [id number] [place] [address] [place] Chloride [Moles/Vol] 108 mmol/L High 97-105 [facility] Comment on above: Order Comment: Speci men Type: BLOOD SPECIMENOrdering Facility: [facility] Address: [address] [place] [address] Performed By: #### 2 4321-2 ####[facility] LABORATORYCLIA [id number] [place] [address] [place] CO2 [Moles/Vol] 25 mmol/L Normal 22-30 [facility] Comment on above: Order Comment: Speci men Type: BLOOD SPECIMENOrdering Facility: [facility] Address: [address] [place] [address] Performed By: #### 2 4321-2 ####[facility] LABORATORYCLIA [id number] [place] [address] [place] Creatinine [Mass/Vol] 0.59 mg/dL Normal 0.58-0.96 [facility] Comment on above: Order Comment: Speci men Type: BLOOD SPECIMENOrdering Facility: [facility] Address: [address] [place] [address] Performed By: #### 2 4321-2 ####[facility] LABORATORYCLIA [id number] [place] [address] [facility] OF [place] ESTIMATED GLOMERULAR FILTRATION RATE 113 mL/min/1.73m??? Normal >=60 [facility] Comment on above: Order Comment: Speci men Type: BLOOD SPECIMENOrdering Facility: [facility] Address: [address] [place] [address] Result Comment: Randy mated Glomerular Filtration Rate (eGFR) is calculated using the 2020 CKD-EPI creatinine equation. This equation utilizes serum creatinine, sex, and age as parameters. The creatinine assay has traceable calibration to isotope dilution-mass spectrometry. Refer to KDIGO guidelines for clinical interpretation. In patients with unstable renal function, e.g. those with acute kidney injury, the eGFR may not accurately reflect actual GFR. Performed By: #### 2 4321-2 ####[facility] LABORATORYCLIA [id number] [place] [address] [place] Glucose [Mass/Vol] 87 mg/dL Normal 74-99 [facility] Comment on above: Order Comment: [place] donnie Type: BLOOD SPECIMENOrdering Facility: [facility] Address: [address] [place] [address] Result Comment: The [place] Diabetes Association (ADA) provides guidance for cutoff values for fasting glucose and random glucose. The ADA defines fasting as no caloric intake for at least 8 hours. Fasting plasma glucose results between 100 to 125 mg/dL indicate increased risk for diabetes (prediabetes).Fasting plasma glucose results greater than or equal to 126 mg/dL meet the criteria for diagnosis of diabetes. In the absence of unequivocal hyperglycemia, results should be confirmed by repeat testing. In a patient with classic symptoms of hyperglycemia or hyperglycemic crisis, random plasma glucose results greater than or equal to 200 mg/dL meet the criteria for diagnosis of diabetes.Reference: Standards of Medical Care in Diabetes 2016, [place] [employer]. Diabetes Care. 2016.39(Suppl 1). Performed By: #### 2 4321-2 ####[facility] LABORATORYCLIA [id number] [place] [address] [place] Potassium [Moles/Vol] 4.1 mmol/L Normal 3.7-5.1 [facility] Comment on above: Order Comment: [place] donnie Type: BLOOD SPECIMENOrdering Facility: [facility] Address: [address] [address] Performed By: #### 2 4321-2 ####[facility] LABORATORYCLIA [id number] [place] [address] [place] Sodium [Moles/Vol] 143 mmol/L Normal 136-144 [facility] Comment on above: Order Comment: [place] donnie Type: BLOOD SPECIMENOrdering Facility: [facility] Address: [address] [place] [address] Performed By: #### 2 4321-2 ####[facility] LABORATORYCLIA [id number] [place] [address] [place] Urea nitrogen [Mass/Vol] 7 mg/dL Normal 7-21 [facility] Comment on above: Order Comment: Speci men Type: BLOOD SPECIMENOrdering Facility: [facility] Address: [address] [place] [address] Performed By: #### 2 4321-2 ####[facility] LABORATORYCLIA [id number] [place] [address] [place] C diff Tox gens Stl Ql MEAGAN+p robeon 04-08-2023 C. difficile toxin genes MEAGAN+probe Ql (Stl) Negative Normal Negative for C. difficile toxin by PCR [facility] Comment on above: Order Comment: Speci men Type: STOOL SPECIMENOrdering Facility: [facility] Address: [address] [place] [address] Performed By: #### 5 4067-4 ####[facility] LABCLIA [id number] [address] [place] CASE MGT INIT ASSESon 2022 CASE MGT INIT ASSES Normal [facility] CBC panel Auto (Bld)on 04-08 Erythrocyte distribution width (RBC) [Ratio] 13.2 % Normal 11.5-15.0 [facility] Comment on above: Order Comment: Speci men Type: BLOOD SPECIMENOrdering Facility: [facility] Address: [address] [place] [address] Performed By: #### 5 8410-2 ####[facility] LABORATORYCLIA [id number] [place] [address] [place] Hematocrit (Bld) [Volume fraction] 36.8 % Normal 36.0-46.0 [facility] Comment on above: Order Comment: Speci men Type: BLOOD SPECIMENOrdering Facility: [facility] Address: [address] [place] [address] Performed By: #### 5 8410-2 ####[facility] LABORATORYCLIA [id number] [place] [address] [place] Hemoglobin (Bld) [Mass/Vol] 11.9 g/dL Normal 11.5-15.5 [facility] Comment on above: Order Comment: Speci men Type: BLOOD SPECIMENOrdering Facility: [facility] Address: [address] [address] Performed By: #### 5 8410-2 ####[facility] LABORATORYCLIA [id number] [address] MCH (RBC) [Entitic mass] 29.5 pg Normal 26.0-34.0 [facility] Comment on above: Order Comment: Speci men Type: BLOOD SPECIMENOrdering Facility: [facility] Address: [address] [address] Performed By: #### 5 8410-2 ####[facility] LABORATORYCLIA [id number] [address] [place] [facility] MCHC (RBC) [Mass/Vol] 32.3 g/dL Normal 30.5-36.0 [facility] Comment on above: Order Comment: Speci men Type: BLOOD SPECIMENOrdering Facility: [facility] Address: [address] [address] Performed By: #### 5 8410-2 ####[facility] LABORATORYCLIA [id number] [address] MCV (RBC) [Entitic vol] 91.3 fL Normal 80.0-100.0 [facility] Comment on above: Order Comment: Speci men Type: BLOOD SPECIMENOrdering Facility: [facility] Address: [address] [address] Performed By: #### 5 8410-2 ####[facility] LABORATORYCLIA [id number] [address] Nucleated RBC (Bld) [#/Vol] 10*3/uL Normal <0.01 [facility] Comment on above: Order Comment: Speci men Type: BLOOD SPECIMENOrdering Facility: [facility] Address: [address] [address] Performed By: #### 5 8410-2 ####[facility] LABORATORYCLIA [id number] [place] [address] [place] Platelet mean volume (Bld) [Entitic vol] 10.6 fL Normal 9.0-12.7 [facility] Comment on above: Order Comment: Speci men Type: BLOOD SPECIMENOrdering Facility: [facility] Address: [address] [place] [address] Performed By: #### 5 8410-2 ####[facility] LABORATORYCLIA [id number] [place] [address] [place] Platelets (Bld) [#/Vol] 219 10*3/uL Normal 150-400 [facility] Comment on above: Order Comment: Speci men Type: BLOOD SPECIMENOrdering Facility: [facility] Address: [address] [place] [address] Performed By: #### 5 8410-2 ####[facility] LABORATORYCLIA [id number] [place] [address] [place] RBC (Bld) [#/Vol] 4.03 10*6/uL Normal 3.90-5.20 [facility] Comment on above: Order Comment: Speci men Type: BLOOD SPECIMENOrdering Facility: [facility] Address: [address] [place] [address] Performed By: #### 5 8410-2 ####[facility] LABORATORYCLIA [id number] [place] [address] [place] WBC (Bld) [#/Vol] 5.27 10*3/uL Normal 3.70-11.00 [facility] Comment on above: Order Comment: Speci men Type: BLOOD SPECIMENOrdering Facility: [facility] Address: [address] [place] [address] Performed By: #### 5 8410-2 ####[facility] LABORATORYCLIA [id number] [place] [address] [place] CONSULTon 04-08-2023 CONSULT Normal [facility] CONSULT Normal [facility] CONSULT PROGon 04-08-2023 CONSULT PROG Normal [facility] FECAL FAT STOOL, QUANTon DURATION Random Normal [facility] Comment on above: Order Comment: Speci men Type: STOOL SPECIMENOrdering Facility: [facility] Address: [address] [place] [address] Result Comment: More reliable results can be obtained from atimed collection. 48 and 72 hour collectionswill give the most reliable results. PercentFat >20% in a random collection is suggestiveof a fat malabsorption disorder and should beconfirmed with a timed collection. Performed By: #### F ECFAT ####[facility] REFERENCE LABCLIA [id number] [place] [id number] FAT QUANT, FECES DNR [facility] Comment on above: Order Comment: Sharoni donnie Type: STOOL SPECIMENOrdering Facility: [facility] Address: [address] [place] [address] Performed By: #### F ECFAT ####[facility]FER[facility] LABCLIA [id number] [place] [address] PERCENT FAT 48 % fat High < 20 [facility] Comment on above: Order Comment: [place] donnie Type: STOOL SPECIMENOrdering Facility: [facility] Address: [address] [place] [address] Result Comment: ---- ADDITIONAL INFORMATION This test was developed and its performance characteristicsdetermined by [facility] in a manner consistent withCLIA requirements. This test has not been cleared orapproved by the U.S. Food and Drug Administration.Test Performed by:[place] [id number] Director: Juan Mason M.D. Ph.D.; CLIA# [id number] Performed By: #### F ECFAT ####[facility] REFERENCE LABCLIA [id number] [place] [address] TOTAL WEIGHT, FECES 10 g [facility] Comment on above: Order Comment: Speci men Type: STOOL SPECIMENOrdering Facility: [facility] Address: [address] [address] Performed By: #### F ECFAT ####[facility] REFER[facility] LABCLIA [id number] [place] [address] G lamblia+Cryptosp Ag Stl Ql IAon 04-08-2023 G. lamblia+Cryptosporidi um sp Ag IA Ql (Stl) CRYPTOSPORIDIUM ANTIGEN BY EIA: Negative for Cryptosporidium by EIA. GIARDIA ANTIGEN BY EIA: Negative for Giardia lamblia by EIA. Normal [facility] Comment on above: Performed By: #### 4 8059-0 ####[facility] LABCLIA [id number] [place] [address] [place] Gastrointestinal pathogens i dentified MEAGAN+probe Nom (Stl)on 04-08-2023 Campylobacter sp DNA MEAGAN+probe Nom (Unsp spec) Not detected Normal Not Detected [facility] Comment on above: Order Comment: Speci men Type: STOOL SPECIMENOrdering Facility: [facility] Address: [address] [place] [address] Performed By: #### 7 9390-1 ####[facility] LABCLIA [id number] [place] [address] [place] Salmonella sp DNA MEAGAN+probe Ql (Unsp spec) Not detected Normal Not Detected [facility] Comment on above: Order Comment: Speci men Type: STOOL SPECIMENOrdering Facility: [facility] Address: [address] [place] [address] Performed By: #### 7 9390-1 ####[facility] LABCLIA [id number] [place] [address] [place] Shiga toxin stx gene MEAGAN+probe Nom (Unsp spec) Not detected Normal Not Detected [facility] Comment on above: Order Comment: Speci men Type: STOOL SPECIMENOrdering Facility: [facility] Address: [address] [place] [address] Performed By: #### 7 9390-1 ####[facility] LABCLIA [id number] [address] [place] Shigella sp DNA MEAGAN+probe Ql (Unsp spec) Not detected Normal Not Detected [facility] Comment on above: Order Comment: Speci men Type: STOOL SPECIMENOrdering Facility: [facility] Address: [address] [place], [place] [id number] Performed By: #### 7 9390-1 ####[facility] LABCLIA [id number] [address] [place] HISTORY PHYSICALon 3 HISTORY PHYSICAL Normal [facility] Hemoccult Stl Qlon 3 Hemoglobin.gastrointe stinal Ql (Stl) Negative Normal [facility] Comment on above: Performed By: #### 2 335-8 ####[facility] LABORATORYCLIA [id number] [place] [address] [place] NURSING PROGon 04-08-2023 NURSING PROG Normal [facility] NURSING PROG Normal [facility] O+P Spec Microon 04-08-2023 Ova and parasites identified LM Nom (Unsp spec) OVA AND PARASITE EXAM: No Parasites Seen Normal [facility] Comment on above: Performed By: #### 6 73-4 ####[facility] LABCLIA [id number] [place] [address] [place] ALLIED HEALTHon 04-07-2023 ALLIED HEALTH Normal [facility] CBC W Auto Differential pane l (Bld)on 04-07-2023 Basophils (Bld) [#/Vol] 0.06 10*3/uL Normal <0.11 [facility] Comment on above: Order Comment: Speci men Type: BLOOD SPECIMENOrdering Facility: [facility] Address: [address] [place], [place] [id number] Performed By: #### 5 7021-8 ####[facility] LABORATORYCLIA [id number] [place] [address] [place] Basophils/100 WBC (Bld) 1.0 % Normal [facility] Comment on above: Order Comment: Speci men Type: BLOOD SPECIMENOrdering Facility: [facility] Address: [address] [address] Performed By: #### 5 7021-8 ####[facility] LABORATORYCLIA [id number] [place] [address] [place] Differential cell count method Nom (Bld) Auto Normal [facility] Comment on above: Order Comment: Speci men Type: BLOOD SPECIMENOrdering Facility: [facility] Address: [address] [place] [address] Performed By: #### 5 7021-8 ####[facility] LABORATORYCLIA [id number] [place] [address] [place] Eosinophils (Bld) [#/Vol] 0.16 10*3/uL Normal <0.46 [facility] Comment on above: Order Comment: Speci men Type: BLOOD SPECIMENOrdering Facility: [facility] Address: [address] [place] [address] Performed By: #### 5 7021-8 ####[facility] LABORATORYCLIA [id number] [address] [place] Eosinophils/100 WBC (Bld) 2.8 % Normal [facility] Comment on above: Order Comment: Speci men Type: BLOOD SPECIMENOrdering Facility: [facility] Address: [address] [place] [address] Performed By: #### 5 7021-8 ####[facility] LABORATORYCLIA [id number] [address] [place] Erythrocyte distribution width (RBC) [Ratio] 13.2 % Normal 11.5-15.0 [facility] Comment on above: Order Comment: Speci men Type: BLOOD SPECIMENOrdering Facility: [facility] Address: [address] [place] [address] Performed By: #### 5 7021-8 ####[facility] LABORATORYCLIA [id number] [address] [place] Hematocrit (Bld) [Volume fraction] 37.1 % Normal 36.0-46.0 [facility] Comment on above: Order Comment: Speci men Type: BLOOD SPECIMENOrdering Facility: [facility] Address: [address] [address] Performed By: #### 5 7021-8 ####[facility] LABORATORYCLIA [id number] [place] [address] [place] Hemoglobin (Bld) [Mass/Vol] 12.2 g/dL Normal 11.5-15.5 [facility] Comment on above: Order Comment: Speci men Type: BLOOD SPECIMENOrdering Facility: [facility] Address: [address] [address] Performed By: #### 5 7021-8 ####[facility] LABORATORYCLIA [id number] [place] [address] [place] Immature granulocytes (Bld) [#/Vol] 10*3/uL Normal <0.10 [facility] Comment on above: Order Comment: Speci men Type: BLOOD SPECIMENOrdering Facility: [facility] Address: [address] [address] Performed By: #### 5 7021-8 ####[facility] LABORATORYCLIA [id number] [place] [address] [place] Immature granulocytes/100 WBC (Bld) 0.2 % Normal [facility] Comment on above: Order Comment: Speci men Type: BLOOD SPECIMENOrdering Facility: [facility] Address: [address] [place] [address] Performed By: #### 5 7021-8 ####[facility] LABORATORYCLIA [id number] [place] [address] [place] Lymphocytes (Bld) [#/Vol] 2.33 10*3/uL Normal 1.00-4.00 [facility] Comment on above: Order Comment: Speci men Type: BLOOD SPECIMENOrdering Facility: [facility] Address: [address] [place] [address] Performed By: #### 5 7021-8 ####[facility] LABORATORYCLIA [id number] [place] [address] [place] Lymphocytes/100 WBC (Bld) 40.5 % Normal [facility] Comment on above: Order Comment: Speci men Type: BLOOD SPECIMENOrdering Facility: [facility] Address: [address] [place] [address] Performed By: #### 5 7021-8 ####[facility] LABORATORYCLIA [id number] [address] [place] [facility] MCH (RBC) [Entitic mass] 29.4 pg Normal 26.0-34.0 [facility] Comment on above: Order Comment: Speci men Type: BLOOD SPECIMENOrdering Facility: [facility] Address: [address] [address] Performed By: #### 5 7021-8 ####[facility] LABORATORYCLIA [id number] [address] [place] MCHC (RBC) [Mass/Vol] 32.9 g/dL Normal 30.5-36.0 [facility] Comment on above: Order Comment: Speci men Type: BLOOD SPECIMENOrdering Facility: [facility] Address: [address] [place] [address] Performed By: #### 5 7021-8 ####[facility] LABORATORYCLIA [id number] [address] [place] MCV (RBC) [Entitic vol] 89.4 fL Normal 80.0-100.0 [facility] Comment on above: Order Comment: Speci men Type: BLOOD SPECIMENOrdering Facility: [facility] Address: [address] [address] Performed By: #### 5 7021-8 ####[facility] LABORATORYCLIA [id number] [address] Monocytes (Bld) [#/Vol] 0.47 10*3/uL Normal <0.87 [facility] Comment on above: Order Comment: Speci men Type: BLOOD SPECIMENOrdering Facility: [facility] Address: [address] [place] [address] Performed By: #### 5 7021-8 ####[facility] LABORATORYCLIA [id number] [place] [address] [place] Monocytes/100 WBC (Bld) 8.2 % Normal [facility] Comment on above: Order Comment: Speci men Type: BLOOD SPECIMENOrdering Facility: [facility] Address: [address] [place] [address] Performed By: #### 5 7021-8 ####[facility] LABORATORYCLIA [id number] [place] [address] [place] Neutrophils (Bld) [#/Vol] 2.73 10*3/uL Normal 1.45-7.50 [facility] Comment on above: Order Comment: Speci men Type: BLOOD SPECIMENOrdering Facility: [facility] Address: [address] [place] [address] Performed By: #### 5 7021-8 ####[facility] LABORATORYCLIA [id number] [place] [address] [place] Neutrophils/100 WBC (Bld) 47.3 % Normal [facility] Comment on above: Order Comment: Speci men Type: BLOOD SPECIMENOrdering Facility: [facility] Address: [address] [place] [address] Performed By: #### 5 7021-8 ####[facility] LABORATORYCLIA [id number] [place] [address] [place] Nucleated RBC (Bld) [#/Vol] 10*3/uL Normal <0.01 [facility] Comment on above: Order Comment: Speci men Type: BLOOD SPECIMENOrdering Facility: [facility] Address: [address] [place] [address] Performed By: #### 5 7021-8 ####[facility] LABORATORYCLIA [id number] [place] [address] [place] Nucleated RBC/100 WBC (Bld) [Ratio] 0.0 /100 WBC Normal [facility] Comment on above: Order Comment: Speci men Type: BLOOD SPECIMENOrdering Facility: [facility] Address: [address] [place] [address] Performed By: #### 5 7021-8 ####[facility] LABORATORYCLIA [id number] [place] [address] [place] Platelet mean volume (Bld) [Entitic vol] 9.9 fL Normal 9.0-12.7 [facility] Comment on above: Order Comment: Speci men Type: BLOOD SPECIMENOrdering Facility: [facility] Address: [address] [place] [address] Performed By: #### 5 7021-8 ####[facility] LABORATORYCLIA [id number] [place] [address] [place] Platelets (Bld) [#/Vol] 223 10*3/uL Normal 150-400 [facility] Comment on above: Order Comment: Speci men Type: BLOOD SPECIMENOrdering Facility: [facility] Address: [address] [place] [address] Performed By: #### 5 7021-8 ####[facility] LABORATORYCLIA [id number] [place] [address] [place] RBC (Bld) [#/Vol] 4.15 10*6/uL Normal 3.90-5.20 [facility] Comment on above: Order Comment: Speci men Type: BLOOD SPECIMENOrdering Facility: [facility] Address: [address] [place] [address] Performed By: #### 5 7021-8 ####[facility] LABORATORYCLIA [id number] [place] [address] [place] WBC (Bld) [#/Vol] 5.76 10*3/uL Normal 3.70-11.00 [facility] Comment on above: Order Comment: Speci men Type: BLOOD SPECIMENOrdering Facility: [facility] Address: [address] [place] [address] Performed By: #### 5 7021-8 ####[facility] LABORATORYCLIA [id number] [place] [address] [place] CNPNon 04-07-[address] [facility] CT ABD/PEL W IVCONon 07-25-[address] ABD/PEL W IVCON Normal [facility] Comprehensive metabolic 2000 panelon 04-07-2023 Albumin [Mass/Vol] 4.1 g/dL Normal 3.9-4.9 [facility] Comment on above: Order Comment: Speci men Type: BLOOD SPECIMENOrdering Facility: [facility] Address: [address] [address] Performed By: #### 2 3-8, ####[facility] LABORATORYCLIA [id number] [place] [address] [place] ALP [Catalytic activity/Vol] 117 U/L Normal 34-123 [facility] Comment on above: Order Comment: Speci men Type: BLOOD SPECIMENOrdering Facility: [facility] Address: [address] [place] [address] Performed By: #### 2 8, ####[facility] LABORATORYCLIA [id number] [address] [place] ALT [Catalytic activity/Vol] 25 U/L Normal 7-38 [facility] Comment on above: Order Comment: Speci men Type: BLOOD SPECIMENOrdering Facility: [facility] Address: [address] [place] [address] Performed By: #### 2 8, ####[facility] LABORATORYCLIA [id number] [place] [address] [place] Anion gap [Moles/Vol] 8 mmol/L Low 9-18 [facility] Comment on above: Order Comment: Speci men Type: BLOOD SPECIMENOrdering Facility: [facility] Address: [address] [address] Performed By: #### 2 4323-8, ####[facility] LABORATORYCLIA [id number] [place] [address] [place] AST [Catalytic activity/Vol] 24 U/L Normal 13-35 [facility] Comment on above: Order Comment: Speci men Type: BLOOD SPECIMENOrdering Facility: [facility] Address: [address] [address] Performed By: #### 2 4323-04, ####[facility] LABORATORYCLIA [id number] [place] [address] [place] Bilirubin [Mass/Vol] 0.2 mg/dL Normal 0.2-1.3 [facility] Comment on above: Order Comment: Speci men Type: BLOOD SPECIMENOrdering Facility: [facility] Address: [address] [place] [address] Performed By: #### 2 4323-04, ####[facility] LABORATORYCLIA [id number] [place] [address] [place] Calcium [Mass/Vol] 8.7 mg/dL Normal 8.5-10.2 [facility] Comment on above: Order Comment: Speci men Type: BLOOD SPECIMENOrdering Facility: [facility] Address: [address] [address] Performed By: #### 2 4323-04, ####[facility] LABORATORYCLIA [id number] [place] [address] [place] Chloride [Moles/Vol] 105 mmol/L Normal 97-105 [facility] Comment on above: Order Comment: Speci men Type: BLOOD SPECIMENOrdering Facility: [facility] Address: [address] [place] [address] Performed By: #### 2 4323-04, ####[facility] LABORATORYCLIA [id number] [place] [address] [place] CO2 [Moles/Vol] 26 mmol/L Normal 22-30 [facility] Comment on above: Order Comment: Speci men Type: BLOOD SPECIMENOrdering Facility: [facility] Address: [address] Performed By: #### 2 4323-04, ####[facility] LABORATORYCLIA [id number] [place] [id number] [place] Creatinine [Mass/Vol] 0.68 mg/dL Normal 0.58-0.96 [facility] Comment on above: Order Comment: [place] Type: BLOOD SPECIMENOrdering Facility: [facility] Address: [address] [id number] Performed By: #### 2 4323-8, ####[facility] LABORATORYCLIA [id number] [place] [id number] [place] ESTIMATED GLOMERULAR FILTRATION RATE 109 mL/min/1.73m??? Normal >=60 [facility] Comment on above: Order Comment: [place] Type: BLOOD SPECIMENOrdering Facility: [facility] Address: [place] [address] Result Comment: Randy mated Glomerular Filtration Rate (eGFR) is calculated using the 2020 CKD-EPI creatinine equation. This equation utilizes serum creatinine, sex, and age as parameters. The creatinine assay has traceable calibration to isotope dilution-mass spectrometry. Refer to KDIGO guidelines for clinical interpretation. In patients with unstable renal function, e.g. those with acute kidney injury, the eGFR may not accurately reflect actual GFR. Performed By: #### 2 4323-8, ####[facility] LABORATORYCLIA [id number] [place] [id number] [place] Glucose [Mass/Vol] 94 mg/dL Normal 74-99 [facility] Comment on above: Order Comment: [place] Type: BLOOD SPECIMENOrdering Facility: [facility] Address: [address] [place] [address] Result Comment: The [place] [employer] (ADA) provides guidance for cutoff values for fasting glucose and random glucose. The ADA defines fasting as no caloric intake for at least 8 hours. Fasting plasma glucose results between 100 to 125 mg/dL indicate increased risk for diabetes (prediabetes).Fasting plasma glucose results greater than or equal to 126 mg/dL meet the criteria for diagnosis of diabetes. In the absence of unequivocal hyperglycemia, results should be confirmed by repeat testing. In a patient with classic symptoms of hyperglycemia or hyperglycemic crisis, random plasma glucose results greater than or equal to 200 mg/dL meet the criteria for diagnosis of diabetes.Reference: Standards of Medical Care in Diabetes 2016, [place] [employer]. Diabetes Care. 2016.39(Suppl 1). Performed By: #### 2 4328, ####[facility] LABORATORYCLIA [id number] [place] [id number] [place] Potassium [Moles/Vol] 4.3 mmol/L Normal 3.7-5.1 [facility] Comment on above: Order Comment: Speci men Type: BLOOD SPECIMENOrdering Facility: [facility] Address: [address] [place] [address] Performed By: #### 2 8, ####[facility] LABORATORYCLIA [id number] [place] [address] [place] Protein [Mass/Vol] 6.2 g/dL Low 6.3-8.0 [facility] Comment on above: Order Comment: Speci men Type: BLOOD SPECIMENOrdering Facility: [facility] Address: [address] [place] [address] Performed By: #### 2 8, ####[facility] LABORATORYCLIA [id number] [place] [address] [place] Sodium [Moles/Vol] 139 mmol/L Normal 136-144 [facility] [facility] Comment on above: Order Comment: Speci men Type: BLOOD SPECIMENOrdering Facility: [facility] Address: [address] [place] [address] Performed By: #### 2 8, ####[facility] LABORATORYCLIA [id number] [place] [id number] [place] Urea nitrogen [Mass/Vol] 10 mg/dL Normal 7-21 [facility] Comment on above: Order Comment: Speci men Type: BLOOD SPECIMENOrdering Facility: [facility] Address: [address] [place] [address] Performed By: #### 2 4328, ####[facility] LABORATORYCLIA [id number] [place] [address] [place] ECG COMPLETEon 04-07-2023 ECG COMPLETE Normal [facility] ED NOTEon 04-07-2023 ED NOTE HNO ID: [id number] Author: Salima Wisdom, PIETRO Service: ? Author Type: Registered Nurse Type: ED Notes Filed: 04/07/2023 7:16 PM Note Text: Bed: 18-ED Expected date: Expected time: Means of arrival: Comments: triage Normal [facility] ED PROV NOTEon 04-07-2023 ED PROV NOTE Normal [facility] HISTORY PHYSICALon HISTORY PHYSICAL Normal [facility] Magnesium SerPl-mCncon 04-07 Magnesium [Mass/Vol] 2.0 mg/dL Normal 1.7-2.3 [facility] Comment on above: Order Comment: Speci men Type: BLOOD SPECIMENOrdering Facility: [facility] Address: [address] [place] [address] Performed By: #### 2 4323-8, 93497-3 ####[facility] LABORATORYCLIA [id number] [place] [address] [place] Urinalysis complete panel (U )on 04-07-2023 Bilirubin Ql (U) Negative Normal Negative [facility] Comment on above: Order Comment: Speci men Type: URINE SPECIMENOrdering Facility: [facility] Address: [address] [place] [address] Performed By: #### 2 4356-8 ####[facility] LABORATORYCLIA [id number] [place] [address] [place] CALCIUM OXALATE CRYSTALS (UA) Few Abnormal None Seen [facility] Comment on above: Order Comment: Speci men Type: URINE SPECIMENOrdering Facility: [facility] Address: [address] [address] Performed By: #### 2 4356-8 ####[facility] LABORATORYCLIA [id number] [place] [address] [place] Clarity (Unsp spec) Clear Normal Clear [facility] Comment on above: Order Comment: Speci men Type: URINE SPECIMENOrdering Facility: [facility] Address: [address] [place] [address] Performed By: #### 2 4356-8 ####[facility] LABORATORYCLIA [id number] [address] STATES OF [facility] Color (U) Light Yellow Normal Yellow [facility] Comment on above: Order Comment: Speci men Type: URINE SPECIMENOrdering Facility: [facility] Address: [address] [place] [address] Performed By: #### 2 4356-8 ####JUANPABLO LABORATORYCLIA [id number] [address] [place] Epithelial cells LM.HPF (Urine sed) [#/Area] Few Normal [facility] Comment on above: Order Comment: Speci men Type: URINE SPECIMENOrdering Facility: [facility] Address: [address] [place] [address] Performed By: #### 2 4356-8 ####[facility] LABORATORYCLIA [id number] [address] STATES [facility] Glucose Test strip (U) [Mass/Vol] Negative Normal Trace, Negative [facility] Comment on above: Order Comment: Speci men Type: URINE SPECIMENOrdering Facility: [facility] Address: [address] [place] [address] Performed By: #### 2 4356-8 ####[facility] LABORATORYCLIA [id number] [place] [address] [place] Hemoglobin Ql (U) Negative Normal Negative, Trace [facility] Comment on above: Order Comment: Speci men Type: URINE SPECIMENOrdering Facility: [facility] Address: [address] [place] [address] Performed By: #### 2 4356-8 ####[facility] LABORATORYCLIA [id number] [place] [address] [place] Ketones Ql (U) Negative Normal Negative, Trace [facility] Comment on above: Order Comment: Speci men Type: URINE SPECIMENOrdering Facility: [facility] Address: [address] [place] [address] Performed By: #### 2 4356-8 ####[facility] LABORATORYCLIA [id number] [place] [address] [place] Leukocyte esterase Test strip Ql (U) Negative Normal Negative, 25 Danielle/uL [facility] Comment on above: Order Comment: Speci men Type: URINE SPECIMENOrdering Facility: [facility] Address: [address] [place] [address] Performed By: #### 2 4356-8 ####[facility] LABORATORYCLIA [id number] [place] [address] [place] Nitrite Ql (U) Negative Normal Negative [facility] Comment on above: Order Comment: Speci men Type: URINE SPECIMENOrdering Facility: [facility] Address: [address] [place] [address] Performed By: #### 2 4356-8 ####[facility] LABORATORYCLIA [id number] [place] [address] [place] pH (U) 6.0 [pH] Normal 5.0-8.0 [facility] Comment on above: Order Comment: Speci men Type: URINE SPECIMENOrdering Facility: [facility] Address: [address] [place] [address] Performed By: #### 2 4356-8 ####[facility] LABORATORYCLIA [id number] [place] [address] [place] Protein (U) [Mass/Vol] Trace Normal Trace, Negative [facility] Comment on above: Order Comment: Speci men Type: URINE SPECIMENOrdering Facility: [facility] Address: [address] [place] [address] Performed By: #### 2 4356-8 ####[facility] LABORATORYCLIA [id number] [place] [address] [place] RBC LM.HPF (Urine sed) [#/Area] 3-5 /HPF Abnormal 0-3 /HPF [facility] Comment on above: Order Comment: Speci men Type: URINE SPECIMENOrdering Facility: [facility] Address: [address] [place] [address] Performed By: #### 2 4356-8 ####[facility] LABORATORYCLIA [id number] [place] [address] [place] Specific gravity (U) [Rel density] 1.024 Normal 1.005-1.03 0 [facility] Comment on above: Order Comment: Speci men Type: URINE SPECIMENOrdering Facility: [facility] Address: [address] [place] [address] Performed By: #### 2 4356-8 ####[facility] LABORATORYCLIA [id number] [place] [address] [place] Urobilinogen Ql (U) Negative Normal Negative [facility] Comment on above: Order Comment: Speci men Type: URINE SPECIMENOrdering Facility: [facility] Address: [address] [place] [address] Performed By: #### 2 4356-8 ####[facility] LABORATORYCLIA [id number] [place] [address] [place] WBC LM.HPF (Urine sed) [#/Area] 0-5 /HPF Normal 0-5 /HPF [facility] Comment on above: Order Comment: Speci men Type: URINE SPECIMENOrdering Facility: [facility] Address: [address] [place] [address] Performed By: #### 2 4356-8 ####[facility] LABORATORYCLIA [id number] [place] [address] [place] CNPNon 04-06-[address] [facility] CNNURSEon 04-03-[address] [facility] FECAL FAT STOOL, QUANTon DURATION Random Normal [facility] Comment on above: Order Comment: Speci men Type: STOOL SPECIMENOrdering Facility: [facility] Address: [address] [place] [address] Result Comment: More reliable results can be obtained from atimed collection. 48 and 72 hour collectionswill give the most reliable results. PercentFat >20% in a random collection is suggestiveof a fat malabsorption disorder and should beconfirmed with a timed collection. Performed By: #### F ECFAT ####[facility] REFERENCE LABCLIA [id number] [place] [address] FAT QUANT, FECES DNR Normal [facility] Comment on above: Order Comment: Speci men Type: STOOL SPECIMENOrdering Facility: [facility] Address: [address] [place] [address] Performed By: #### F ECFAT ####[facility] LABCLIA [id number] [place] [address] PERCENT FAT 29 % fat High < 20 [facility] Comment on above: Order Comment: Speci men Type: STOOL SPECIMENOrdering Facility: [facility] Address: [address] [phone] Result Comment: ---- ADDITIONAL INFORMATION This test was developed and its performance characteristicsdetermined by [facility] in a manner consistent withCLIA requirements. This test has not been cleared orapproved by the U.[place]. Food and Drug Administration.Test Performed by:[place] [id number] Director: Juan Mason M.D. Ph.D.; CLIA# [id number] Performed By: #### F ECFAT ####[facility] LABCLIA [id number] [place] [address] TOTAL WEIGHT, FECES 470 g Normal [facility] Comment on above: Order Comment: Speci men Type: STOOL SPECIMENOrdering Facility: [facility] Address: [address] [place] [address] Performed By: #### F ECFAT ####[facility] LABCLIA [id number] [place] [address] G lamblia+Cryptosp Ag Stl Ql IAon 04-03-2023 G. lamblia+Cryptosporidi um sp Ag IA Ql (Stl) CRYPTOSPORIDIUM ANTIGEN BY EIA: Negative for Cryptosporidium by EIA. GIARDIA ANTIGEN BY EIA: Negative for Giardia lamblia by EIA. Normal [facility] Comment on above: Performed By: #### 4 8059-0 ####[facility] LABCLIA [id number] [address] [place] 25([place])D3 [facility] 20[facility] 25-hydroxyvitamin D3 [Mass/Vol] 23.6 ng/mL Low 31.0-80.0 [facility] Comment on above: Order Comment: Speci men Type: BLOOD SPECIMENOrdering Facility: [facility] Address: [address] [address] Result Comment: Clas sification of 25 [place] Vitamin D status:Deficiency/Insufficiency: < or = 30 ng/ml.Sufficiency/Optimal Levels: 31-80 ng/mLToxicity: > 100 ng/mL.Test performed by chemiluminescent immunoassay. Performed By: #### 1 989-3 ####[facility] LABCLIA [id number] [address] [place] CBC W Auto Differential pane l (Bld)on 04-02-2023 Basophils (Bld) [#/Vol] 0.07 10*3/uL Normal <0.11 [facility] Comment on above: Order Comment: Speci men Type: BLOOD SPECIMENOrdering Facility: [facility] Address: [address] [place] [address] Performed By: #### 5 7021-8 ####[facility] LABCLIA [id number] [place] [address] Basophils/100 WBC (Bld) 1.3 % Normal [facility] Comment on above: Order Comment: Speci men Type: BLOOD SPECIMENOrdering Facility: [facility] Address: [address] [place] [address] Performed By: #### 5 7021-8 ####[facility] LABCLIA [id number] [place] [address] Differential cell count method Nom (Bld) Auto Normal [facility] Comment on above: Order Comment: Speci men Type: BLOOD SPECIMENOrdering Facility: [facility] Address: [address] [place] [address] Performed By: #### 5 7021-8 ####[facility] LABCLIA [id number] [place] [address] Eosinophils (Bld) [#/Vol] 0.09 10*3/uL Normal <0.46 [facility] Comment on above: Order Comment: Speci men Type: BLOOD SPECIMENOrdering Facility: [facility] Address: [address] [place] [address] Performed By: #### 5 7021-8 ####[facility] LABCLIA [id number] [place] [address] Eosinophils/100 WBC (Bld) 1.7 % Normal [facility] Comment on above: Order Comment: Speci men Type: BLOOD SPECIMENOrdering Facility: [facility] Address: [address] [place] [address] Performed By: #### 5 7021-8 ####[facility] LABCLIA [id number] [place] [address] Erythrocyte distribution width (RBC) [Ratio] 13.5 % Normal 11.5-15.0 [facility] Comment on above: Order Comment: Speci men Type: BLOOD SPECIMENOrdering Facility: [facility] Address: [address] [place] [address] Performed By: #### 5 7021-8 ####[facility] LABCLIA [id number] [place] [address] Hematocrit (Bld) [Volume fraction] 39.1 % Normal 36.0-46.0 [facility] Comment on above: Order Comment: Speci men Type: BLOOD SPECIMENOrdering Facility: [facility] Address: [address] [place] [address] Performed By: #### 5 7021-8 ####[facility] LABCLIA [id number] [place] [address] Hemoglobin (Bld) [Mass/Vol] 12.6 g/dL Normal 11.5-15.5 [facility] Comment on above: Order Comment: Speci men Type: BLOOD SPECIMENOrdering Facility: [facility] Address: [address] [place] [address] Performed By: #### 5 7021-8 ####[facility] LABCLIA [id number] [place] [address] Immature granulocytes (Bld) [#/Vol] 10*3/uL Normal <0.10 [facility] Comment on above: Order Comment: Speci men Type: BLOOD SPECIMENOrdering Facility: [facility] Address: [address] [place] [address] Performed By: #### 5 7021-8 ####[facility] LABCLIA [id number] [place] [address] Immature granulocytes/100 WBC (Bld) 0.2 % Normal [facility] Comment on above: Order Comment: Speci men Type: BLOOD SPECIMENOrdering Facility: [facility] Address: [address] [address] Performed By: #### 5 7021-8 ####[facility] LABCLIA [id number] [place] [address] Lymphocytes (Bld) [#/Vol] 1.97 10*3/uL Normal 1.00-4.00 [facility] Comment on above: Order Comment: Speci men Type: BLOOD SPECIMENOrdering Facility: [facility] Address: [address] [address] Performed By: #### 5 7021-8 ####[facility] LABCLIA [id number] [place] [address] Lymphocytes/100 WBC (Bld) 37.6 % Normal [facility] Comment on above: Order Comment: Speci men Type: BLOOD SPECIMENOrdering Facility: [facility] Address: [address] [place] [address] Performed By: #### 5 7021-8 ####[facility] LABCLIA [id number] [place] [address] MCH (RBC) [Entitic mass] 29.4 pg Normal 26.0-34.0 [facility] Comment on above: Order Comment: Speci men Type: BLOOD SPECIMENOrdering Facility: [facility] Address: [address] [place] [address] Performed By: #### 5 7021-8 ####[facility] LABCLIA [id number] [place] [address] MCHC (RBC) [Mass/Vol] 32.2 g/dL Normal 30.5-36.0 [facility] Comment on above: Order Comment: Speci men Type: BLOOD SPECIMENOrdering Facility: [facility] Address: [address] [place] [address] Performed By: #### 5 7021-8 ####[facility] LABIA [id number] [place] [address] MCV (RBC) [Entitic vol] 91.1 fL Normal 80.0-100.0 [facility] Comment on above: Order Comment: Speci men Type: BLOOD SPECIMENOrdering Facility: [facility] Address: [address] [place] [address] Performed By: #### 5 7021-8 ####[facility] LABIA [id number] [place] [address] Monocytes (Bld) [#/Vol] 0.46 10*3/uL Normal <0.87 [facility] Comment on above: Order Comment: Speci men Type: BLOOD SPECIMENOrdering Facility: [facility] Address: [address] [place] [address] Performed By: #### 5 7021-8 ####[facility] LABIA [id number] [place] [address] Monocytes/100 WBC (Bld) 8.8 % Normal [facility] Comment on above: Order Comment: Speci men Type: BLOOD SPECIMENOrdering Facility: [facility] Address: [facility] [place] [address] Performed By: #### 5 7021-8 ####[facility] LABCLIA [id number] [place] [address] Neutrophils (Bld) [#/Vol] 2.64 10*3/uL Normal 1.45-7.50 [facility] Comment on above: Order Comment: Speci men Type: BLOOD SPECIMENOrdering Facility: [facility] Address: [address] [address] Performed By: #### 5 7021-8 ####[facility] LABCLIA [id number] [place] [address] Neutrophils/100 WBC (Bld) 50.4 % Normal [facility] Comment on above: Order Comment: Speci men Type: BLOOD SPECIMENOrdering Facility: [facility] Address: [address] [place] [address] Performed By: #### 5 7021-8 ####[facility] LABCLIA [id number] [place] [address] Nucleated RBC (Bld) [#/Vol] 10*3/uL Normal <0.01 [facility] Comment on above: Order Comment: Speci men Type: BLOOD SPECIMENOrdering Facility: [facility] Address: [address] [place] [address] Performed By: #### 5 7021-8 ####[facility] LABCLIA [id number] [place] [address] Nucleated RBC/100 WBC (Bld) [Ratio] 0.0 /[address] [facility] Comment on above: Order Comment: Speci men Type: BLOOD SPECIMENOrdering Facility: [facility] Address: [address] [place] [address] Performed By: #### 5 7021-8 ####[facility] LABCLIA [id number] [place] [address] Platelet mean volume (Bld) [Entitic vol] 10.0 fL Normal 9.0-12.7 [facility] Comment on above: Order Comment: Speci men Type: BLOOD SPECIMENOrdering Facility: [facility] Address: [address] [place] [address] Performed By: #### 5 7021-8 ####[facility] LABCLIA [id number] [place] [address] Platelets (Bld) [#/Vol] 231 10*3/uL Normal 150-400 [facility] Comment on above: Order Comment: Speci men Type: BLOOD SPECIMENOrdering Facility: [facility] Address: [address] [place] [address] Performed By: #### 5 7021-8 ####[facility] LABIA [id number] [place] [address] RBC (Bld) [#/Vol] 4.29 10*6/uL Normal 3.90-5.20 [facility] Comment on above: Order Comment: Speci men Type: BLOOD SPECIMENOrdering Facility: [facility] Address: [address] [place] [address] Performed By: #### 5 7021-8 ####[facility] LABCLIA [id number] [place] [address] WBC (Bld) [#/Vol] 5.24 10*3/uL Normal 3.70-11.00 [facility] Comment on above: Order Comment: Speci men Type: BLOOD SPECIMENOrdering Facility: [facility] Address: [address] [place] [address] Performed By: #### 5 7021-8 ####[facility] LABIA [id number] [place] [address] Basophils (Bld) [#/Vol] 0.07 10*3/uL <0.11 k/uL [facility] Basophils/100 WBC (Bld) 1.3 % [facility] Differential cell count method Nom (Bld) Auto [facility] Eosinophils (Bld) [#/Vol] 0.09 10*3/uL <0.46 k/uL [facility] Eosinophils/100 WBC (Bld) 1.7 % [facility] Erythrocyte distribution width (RBC) [Ratio] 13.5 % 11.5 - 15.0 % [facility] Hematocrit (Bld) [Volume fraction] 39.1 % 36.0 - 46.0 % [facility] Hemoglobin (Bld) [Mass/Vol] 12.6 g/dL 11.5 - 15.5 g/dL [facility] Immature granulocytes (Bld) [#/Vol] <0.10 k/uL [facility] Immature granulocytes/100 WBC (Bld) 0.2 % [facility] Lymphocytes (Bld) [#/Vol] 1.97 10*3/uL 1.00 - 4.00 k/uL [facility] Lymphocytes/100 WBC (Bld) 37.6 % [facility] MCH (RBC) [Entitic mass] 29.4 pg 26.0 - 34.0 pg [facility] MCHC (RBC) [Mass/Vol] 32.2 g/dL 30.5 - 36.0 g/dL [facility] MCV (RBC) [Entitic vol] 91.1 fL 80.0 - 100.0 fL [facility] Monocytes (Bld) [#/Vol] 0.46 10*3/uL <0.87 k/uL [facility] Monocytes/100 WBC (Bld) 8.8 % [facility] Neutrophils (Bld) [#/Vol] 2.64 10*3/uL 1.45 - 7.50 k/uL [facility] Neutrophils/100 WBC (Bld) 50.4 % [facility] Nucleated RBC (Bld) [#/Vol] <0.01 k/uL [facility] Nucleated RBC/100 WBC (Bld) [Ratio] 0.0 /100 WBC [facility] Platelet mean volume (Bld) [Entitic vol] 10.0 fL 9.0 - 12.7 fL [facility] Platelets (Bld) [#/Vol] 231 10*3/uL 150 - 400 k/uL [facility] RBC (Bld) [#/Vol] 4.29 10*6/uL 3.90 - 5.20 m/uL [facility] WBC (Bld) [#/Vol] 5.24 10*3/uL 3.70 - 11.00 k/uL [facility] CNCOon 04-02-2023 CNCO Letter Text Normal [facility] Comprehensive metabolic 2000 panelon 04-02-2023 Albumin [Mass/Vol] 4.2 g/dL 3.9 - 4.9 g/dL [facility] ALP [Catalytic activity/Vol] 131 U/L High 34 - 123 U/L [facility] ALT [Catalytic activity/Vol] 31 U/L 7 - 38 U/L [facility] Anion gap [Moles/Vol] 8 mmol/L Low 9 - 18 mmol/L [facility] AST [Catalytic activity/Vol] 27 U/L 13 - 35 U/L [facility] Bilirubin [Mass/Vol] 0.4 mg/dL 0.2 - 1 .3 mg/dL [facility] Calcium [Mass/Vol] 9.1 mg/dL 8.5 - 10. 2 mg/dL [facility] Chloride [Moles/Vol] 107 mmol/L High 97 - 10 5 mmol/L [facility] CO2 [Moles/Vol] 25 mmol/L 22 - 30 mmol/L [facility] Creatinine [Mass/Vol] 0.75 mg/dL 0.58 - 0.96 mg/dL [facility] Estimated Glomerular Filtration Rate 100 mL/min/1.73m >=60 mL/min/1.7 3m [facility] Glucose [Mass/Vol] 125 mg/dL High 74 - 99 mg/dL [facility] Potassium [Moles/Vol] 3.7 mmol/L 3.7 - 5.1 mmol/L [facility] Protein [Mass/Vol] 6.5 g/dL 6.3 - 8.0 g/dL [facility] Sodium [Moles/Vol] 140 mmol/L 136 - 144 mmol/L [facility] Urea nitrogen [Mass/Vol] 12 mg/dL 7 - 21 mg/dL [facility] Albumin [Mass/Vol] 4.2 g/dL Normal 3.9-4.9 [facility] Comment on above: Order Comment: Speci men Type: BLOOD SPECIMENOrdering Facility: [facility] Address: [address] [place] [id number] Performed By: #### 2 4323-8 ####[facility] LABCLIA [id number] [place] [address] ALP [Catalytic activity/Vol] 131 U/L High 34-123 [facility] Comment on above: Order Comment: Speci men Type: BLOOD SPECIMENOrdering Facility: [facility] Address: [address] [place] [address] Performed By: #### 2 4323-8 ####[facility] LABCLIA [id number] [place] [address] ALT [Catalytic activity/Vol] 31 U/L Normal 7-38 [facility] Comment on above: Order Comment: Speci men Type: BLOOD SPECIMENOrdering Facility: [facility] Address: [address] [place] [address] Performed By: #### 2 4323-8 ####[facility] LABCLIA [id number] [place] [address] Anion gap [Moles/Vol] 8 mmol/L Low 9-18 [facility] Comment on above: Order Comment: Speci men Type: BLOOD SPECIMENOrdering Facility: [facility] Address: [address] [place] [address] Performed By: #### 2 4323-8 ####[facility] LABCLIA [id number] [place] [address] AST [Catalytic activity/Vol] 27 U/L Normal 13-35 [facility] Comment on above: Order Comment: Speci men Type: BLOOD SPECIMENOrdering Facility: [facility] [facility] Address: [address] [place] [address] Performed By: #### 2 4323-8 ####[facility] LABCLIA [id number] [place] [address] Bilirubin [Mass/Vol] 0.4 mg/dL Normal 0.2-1.3 [facility] [place] Comment on above: Order Comment: Speci men Type: BLOOD SPECIMENOrdering Facility: [facility] Address: [address] [address] Performed By: #### 2 4323-8 ####[facility] LABCLIA [id number] [place] [address] Calcium [Mass/Vol] 9.1 mg/dL Normal 8.5-10.2 [facility] Comment on above: Order Comment: Speci men Type: BLOOD SPECIMENOrdering Facility: [facility] Address: [address] [address] Performed By: #### 2 4323-8 ####[facility] LABCLIA [id number] [place] [address] Chloride [Moles/Vol] 107 mmol/L High 97-105 [facility] [place] Comment on above: Order Comment: Speci men Type: BLOOD SPECIMENOrdering Facility: [facility] Address: [address] [address] Performed By: #### 2 4323-8 ####[facility] LABCLIA [id number] [place] [address] CO2 [Moles/Vol] 25 mmol/L Normal 22-30 [facility] Comment on above: Order Comment: Speci men Type: BLOOD SPECIMENOrdering Facility: [facility] Address: [address] [address] Performed By: #### 2 4323-8 ####[facility] LABCLIA [id number] [place] [address] Creatinine [Mass/Vol] 0.75 mg/dL Normal 0.58-0.96 [facility] Comment on above: Order Comment: Speci men Type: BLOOD SPECIMENOrdering Facility: [facility] Address: [address] [place] [address] Performed By: #### 2 4323-8 ####[facility] LABCLIA [id number] [place] [address] ESTIMATED GLOMERULAR FILTRATION RATE 100 mL/min/1.73m??? Normal >=60 [facility] Comment on above: Order Comment: [place] fields Type: BLOOD SPECIMENOrdering Facility: [facility] Address: [address] [phone] Result Comment: Randy mated Glomerular Filtration Rate (eGFR) is calculated using the 2020 CKD-EPI creatinine equation. This equation utilizes serum creatinine, sex, and age as parameters. The creatinine assay has traceable calibration to isotope dilution-mass spectrometry. Refer to KDIGO guidelines for clinical interpretation. In patients with unstable renal function, e.g. those with acute kidney injury, the eGFR may not accurately reflect actual GFR. Performed By: #### 2 4323-8 ####[facility] LABCLIA [id number] [place] [address] Glucose [Mass/Vol] 125 mg/dL High 74-99 [facility] Comment on above: Order Comment: [place] fields Type: BLOOD SPECIMENOrdering Facility: [facility] Address: [address] [phone] Result Comment: The [place] Diabetes Association (ADA) provides guidance for cutoff values for fasting glucose and random glucose. The ADA defines fasting as no caloric intake for at least 8 hours. Fasting plasma glucose results between 100 to 125 mg/dL indicate increased risk for diabetes (prediabetes).Fasting plasma glucose results greater than or equal to 126 mg/dL meet the criteria for diagnosis of diabetes. In the absence of unequivocal hyperglycemia, results should be confirmed by repeat testing. In a patient with classic symptoms of hyperglycemia or hyperglycemic crisis, random plasma glucose results greater than or equal to 200 mg/dL meet the criteria for diagnosis of diabetes.Reference: Standards of Medical Care in Diabetes 2016, [place] [employer] Association. Diabetes Care. 2016.39(Suppl 1). Performed By: #### 2 4323-8 ####[facility] LABCLIA [id number] [place] [address] Potassium [Moles/Vol] 3.7 mmol/L Normal 3.7-5.1 [facility] Comment on above: Order Comment: [place] fields Type: BLOOD SPECIMENOrdering Facility: [facility] Address: [address] [address] Performed By: #### 2 4323-8 ####[facility] LABCLIA [id number] [place] [address] Protein [Mass/Vol] 6.5 g/dL Normal 6.3-8.0 [facility] Comment on above: Order Comment: Speci men Type: BLOOD SPECIMENOrdering Facility: [facility] Address: [address] [address] Performed By: #### 2 4323-8 ####[facility] LABCLIA [id number] [place] [address] Sodium [Moles/Vol] 140 mmol/L Normal 136-144 [facility] Comment on above: Order Comment: Speci men Type: BLOOD SPECIMENOrdering Facility: [facility] Address: [address] [address] Performed By: #### 2 4323-8 ####[facility] LABCLIA [id number] [place] [address] Urea nitrogen [Mass/Vol] 12 mg/dL Normal 7-21 [facility] Comment on above: Order Comment: Speci men Type: BLOOD SPECIMENOrdering Facility: [facility] Address: [address] [address] Performed By: #### 2 4323-8 ####[facility] LABCLIA [id number] [place] [address] Ferritin SerPl-mCncon 2022 Ferritin [Mass/Vol] 271.0 ng/mL High 14.7-205.1 [facility] [place] Comment on above: Order Comment: Speci men Type: BLOOD SPECIMENOrdering Facility: [facility] Address: [address] [address] Performed By: #### 2 276-4, 33183-7 ####[facility] LABCLIA [id number] [place] [address] [place] Folate SerPl-mCncon 04-02-20 23 Folate [Mass/Vol] 7.7 ng/mL Normal >4.7 [facility] Comment on above: Order Comment: Speci men Type: BLOOD SPECIMENOrdering Facility: [facility] Address: [address] [address] Performed By: #### 2 731-8, 2284-8, 2132-9 ####[facility] LABCLIA [id number] [place] [address] [place] Gastrin SerPl-mCncon 023 Gastrin [Mass/Vol] 10.5 pg/mL Normal <115.0 [facility] Comment on above: Order Comment: Speci men Type: BLOOD SPECIMENOrdering Facility: [facility] Address: [address] [place] [address] Result Comment: The Gastrin test was performed using the Siemens Immulite chemiluminescent immunometric method. Results obtained with different assay methods or kits cannot be used interchangeably. Performed By: #### 2 333-3 ####[facility] LABCLIA [id number] [place] [address] [place] Iron and Iron binding capaci ty panelon 04-02-2023 Iron [Mass/Vol] 86 ug/dL Normal 41-186 [facility] Comment on above: Order Comment: Speci men Type: BLOOD SPECIMENOrdering Facility: [facility] Address: [address] Performed By: #### 2 276-4, 24154-2 ####[facility] LABIA [id number] [address] [place] Iron binding capacity [Mass/Vol] 322 ug/dL Normal 232-386 [facility] Comment on above: Order Comment: Speci men Type: BLOOD SPECIMENOrdering Facility: [facility] Address: [address] [place] [address] Performed By: #### 2 276-4, 01146-7 ####[facility] LABIA [id number] [place] [address] [place] Iron/TIBC [Molar ratio] 26.7 % Normal 15.0-57.0 [facility] Comment on above: Order Comment: Speci men Type: BLOOD SPECIMENOrdering Facility: [facility] Address: [address] [place] [address] Performed By: #### 2 276-4, 50448-2 ####[facility] [id number] [place] [address] [place] PTH-Intact SerPl-ncon 03-15 Parathyrin.intact [Mass/Vol] 56 pg/mL Normal 15-65 [facility] Comment on above: Order Comment: [facility] Type: BLOOD SPECIMENOrdering Facility: [facility] Address: [address] [place] [address] Performed By: #### 2 731-8, 2284-8, 2132-9 ####[facility] [id number] [address] [place] VITAMIN B1 (THIAMINE), WHOLE BLOODon 04-02-2023 Thiamine (Bld) [Moles/Vol] 152.8 nmol/L Normal 84.3-213.3 [facility] Comment on above: Order Comment: Speci men Type: BLOOD SPECIMENOrdering Facility: [facility] Address: [address] [place] [address] Result Comment: This assay measures the concentration of thiamine diphosphate (TDP), the primary active form of vitamin B1. Approximately 90 percent of vitamin B1 present in whole blood is TDP. Thiamine and thiamine monophosphate, which comprise the remaining 10 percent, are not measured.This test was developed and its performance characteristics determined by [facility]'s Jey Arroyo [facility] Pathology and Laboratory Medicine [place] ([facility]). It has not been cleared or approved by the FDA. -[facility] is regulated under CLIA as qualified to perform high-complexity testing. This test is used for clinical purposes. It should not be regarded as investigational or for research. Performed By: #### B 1WB ####[facility] LABCLIA [id number] [address] [place] Vit B12 [facility] 0[facility] Cobalamin (Vitamin B12) [Mass/Vol] 487 pg/mL Normal 232-1245 [facility] Comment on above: Order Comment: Speci men Type: BLOOD SPECIMENOrdering Facility: [facility] Address: [address] [address] Performed By: #### 2 731-8, 2284-8, 2132-9 ####[facility] LABCLIA [id number] [address] CNPNon 03-28-2023 CNPN Normal [facility] CBC W Auto Differential pane l (Bld)on 03-27-2023 Basophils (Bld) [#/Vol] 0.07 10*3/uL Normal <0.11 [facility] Comment on above: Order Comment: Speci men Type: BLOOD SPECIMENOrdering Facility: [facility] Address: [address] [address] Performed By: #### 5 7021-8 ####[facility] LABCLIA [id number] [place] [address] Basophils/100 WBC (Bld) 1.2 % Normal [facility] Comment on above: Order Comment: Speci men Type: BLOOD SPECIMENOrdering Facility: [facility] Address: [address] [address] Performed By: #### 5 7021-8 ####[facility] LABCLIA [id number] [place] [address] Differential cell count method Nom (Bld) Auto Normal [facility] Comment on above: Order Comment: Speci men Type: BLOOD SPECIMENOrdering Facility: [facility] Address: [address] [address] Performed By: #### 5 7021-8 ####[facility] LABCLIA [id number] [place] [address] Eosinophils (Bld) [#/Vol] 0.19 10*3/uL Normal <0.46 [facility] Comment on above: Order Comment: Speci men Type: BLOOD SPECIMENOrdering Facility: [facility] Address: [address] [place] [address] Performed By: #### 5 7021-8 ####[facility] LABCLIA [id number] [place] [address] Eosinophils/100 WBC (Bld) 3.2 % Normal [facility] Comment on above: Order Comment: Speci men Type: BLOOD SPECIMENOrdering Facility: [facility] Address: [address] [place] [address] Performed By: #### 5 7021-8 ####[facility] LABCLIA [id number] [place] [address] Erythrocyte distribution width (RBC) [Ratio] 13.4 % Normal 11.5-15.0 [facility] Comment on above: Order Comment: Speci men Type: BLOOD SPECIMENOrdering Facility: [facility] Address: [address] [place] [address] Performed By: #### 5 7021-8 ####[facility] LABCLIA [id number] [place] [address] Hematocrit (Bld) [Volume fraction] 38.2 % Normal 36.0-46.0 [facility] Comment on above: Order Comment: Speci men Type: BLOOD SPECIMENOrdering Facility: [facility] Address: [address] [place] [address] Performed By: #### 5 7021-8 ####[facility] LABCLIA [id number] [place] [address] Hemoglobin (Bld) [Mass/Vol] 12.5 g/dL Normal 11.5-15.5 [facility] Comment on above: Order Comment: Speci men Type: BLOOD SPECIMENOrdering Facility: [facility] Address: [address] [place] [address] Performed By: #### 5 7021-8 ####[facility] LABCLIA [id number] [place] [address] Immature granulocytes (Bld) [#/Vol] 10*3/uL Normal <0.10 [facility] Comment on above: Order Comment: Speci men Type: BLOOD SPECIMENOrdering Facility: [facility] Address: [address] [place] [address] Performed By: #### 5 7021-8 ####[facility] LABCLIA [id number] [place] [address] Immature granulocytes/100 WBC (Bld) 0.2 % Normal [facility] Comment on above: Order Comment: Speci men Type: BLOOD SPECIMENOrdering Facility: [facility] Address: [address] [place] [address] Performed By: #### 5 7021-8 ####[facility] LABCLIA [id number] [place] [address] Lymphocytes (Bld) [#/Vol] 2.61 10*3/uL Normal 1.00-4.00 [facility] Comment on above: Order Comment: Speci men Type: BLOOD SPECIMENOrdering Facility: [facility] Address: [address] [place] [address] Performed By: #### 5 7021-8 ####[facility] LABCLIA [id number] [place] [address] Lymphocytes/100 WBC (Bld) 43.3 % Normal [facility] Comment on above: Order Comment: Speci men Type: BLOOD SPECIMENOrdering Facility: [facility] Address: [address] [place] [address] Performed By: #### 5 7021-8 ####[facility] LABCLIA [id number] [place] [address] MCH (RBC) [Entitic mass] 30.0 pg Normal 26.0-34.0 [facility] Comment on above: Order Comment: Speci men Type: BLOOD SPECIMENOrdering Facility: [facility] Address: [address] [place] [address] Performed By: #### 5 7021-8 ####[facility] LABCLIA [id number] [place] [address] MCHC (RBC) [Mass/Vol] 32.7 g/dL Normal 30.5-36.0 [facility] Comment on above: Order Comment: Speci men Type: BLOOD SPECIMENOrdering Facility: [facility] Address: [address] [place] [address] Performed By: #### 5 7021-8 ####[facility] LABIA [id number] [place] [address] MCV (RBC) [Entitic vol] 91.8 fL Normal 80.0-100.0 [facility] Comment on above: Order Comment: Speci men Type: BLOOD SPECIMENOrdering Facility: [facility] Address: [address] [place] [address] Performed By: #### 5 7021-8 ####[facility] LABIA [id number] [place] [address] Monocytes (Bld) [#/Vol] 0.40 10*3/uL Normal <0.87 [facility] Comment on above: Order Comment: Speci men Type: BLOOD SPECIMENOrdering Facility: [facility] Address: [address] [place] [address] Performed By: #### 5 7021-8 ####[facility] LABIA [id number] [place] [address] Monocytes/100 WBC (Bld) 6.6 % Normal [facility] Comment on above: Order Comment: Speci men Type: BLOOD SPECIMENOrdering Facility: [facility] Address: [address] [address] Performed By: #### 5 7021-8 ####[facility] LABCLIA [id number] [place] [address] Neutrophils (Bld) [#/Vol] 2.75 10*3/uL Normal 1.45-7.50 [facility] Comment on above: Order Comment: Speci men Type: BLOOD SPECIMENOrdering Facility: [facility] Address: [address] [address] Performed By: #### 5 7021-8 ####[facility] LABCLIA [id number] [place] [address] Neutrophils/100 WBC (Bld) 45.5 % Normal [facility] Comment on above: Order Comment: Speci men Type: BLOOD SPECIMENOrdering Facility: [facility] Address: [address] [place] [address] Performed By: #### 5 7021-8 ####[facility] LABCLIA [id number] [place] [address] Nucleated RBC (Bld) [#/Vol] 10*3/uL Normal <0.01 [facility] Comment on above: Order Comment: Speci men Type: BLOOD SPECIMENOrdering Facility: [facility] Address: [address] [place] [address] Performed By: #### 5 7021-8 ####[facility] LABCLIA [id number] [place] [address] Nucleated RBC/100 WBC (Bld) [Ratio] 0.0 /[address] [facility] Comment on above: Order Comment: Speci men Type: BLOOD SPECIMENOrdering Facility: [facility] Address: [address] [place] [address] Performed By: #### 5 7021-8 ####[facility] LABCLIA [id number] [place] [address] Platelet mean volume (Bld) [Entitic vol] 9.9 fL Normal 9.0-12.7 [facility] Comment on above: Order Comment: Speci men Type: BLOOD SPECIMENOrdering Facility: [facility] Address: [address] [place] [address] Performed By: #### 5 7021-8 ####[facility] LABCLIA [id number] [place] [address] Platelets (Bld) [#/Vol] 237 10*3/uL Normal 150-400 [facility] Comment on above: Order Comment: Speci men Type: BLOOD SPECIMENOrdering Facility: [facility] Address: [address] [place] [address] Performed By: #### 5 7021-8 ####[facility] LABIA [id number] [place] [address] RBC (Bld) [#/Vol] 4.16 10*6/uL Normal 3.90-5.20 [facility] Comment on above: Order Comment: Speci men Type: BLOOD SPECIMENOrdering Facility: [facility] Address: [address] [place] [address] Performed By: #### 5 7021-8 ####[facility] LABCLIA [id number] [place] [address] WBC (Bld) [#/Vol] 6.03 10*3/uL Normal 3.70-11.00 [facility] Comment on above: Order Comment: Speci men Type: BLOOD SPECIMENOrdering Facility: [facility] Address: [address] [place] [address] Performed By: #### 5 7021-8 ####[facility] LABIA [id number] [place] [address] CDIFF PCR W/RFLX EIA IF POSI TIVEon 03-27-2023 C. difficile toxin genes MEAGAN+probe Ql (Stl) Negative Normal Negative for C. difficile toxin by PCR [facility] Comment on above: Order Comment: Speci men Type: STOOL SPECIMENOrdering Facility: [facility] Address: [address] [phone] Performed By: #### C DREFL ####[facility] LABCLIA [id number] DARYL FOX [id number] [place] [address] [place] Dietition Noteon 12-25-2022 Dietition Note No report was sent Normal [facility] MG MAMM SCREEN 3D JIMBO CADon 11-19-2022 MG MAMM SCREEN 3D JIMBO CAD Patient: MELINA DÍAZ Exam Date: 11/19/2022 : 1975 Gender:F Ordering : DR DANIA PARDO M.D. Admission #: [id number] Family : Order #: [id number] CLICK HERE TO VIEW EXAM RADIOLOGY REPORT PROCEDURE: MAMMOGRAM SCREENING 3D BILATERAL CAD COMPARISON: MG MAMM SCREEN 3D JIMBO CAD, 11/05/2021. INDICATIONS: Screening mammography Calculator Name NCI Breast Cancer Risk Assessment Tool 5 Year Breast Cancer Risk 1.00% Lifetime Breast Cancer Risk 9.10% Personal Breast Cancer No Personal Ovarian Cancer No Treatments None Family Cancers None LOCATION: [facility] BREAST COMPOSITION: Scattered areas fibroglandular density. FINDINGS: DIAGNOSTIC CATEGORY 1--NEGATIVE. NO CHANGE FROM COMPARISON ASSESSMENT. Scattered benign-appearing nodules are present. Scattered benign-appearing calcifications are present. Scattered benign-appearing lymph nodes are present. RIGHT BREAST: No significant suspicious finding. LEFT BREAST: No significant suspicious finding. RECOMMENDATIONS: ROUTINE MAMMOGRAM AND CLINICAL EVALUATION IN 12 MONTHS. PLEASE NOTE: A NORMAL MAMMOGRAM DOES NOT EXCLUDE THE POSSIBILITY OF BREAST CANCER. A CLINICALLY SUSPICIOUS PALPABLE LUMP SHOULD BE BIOPSIED. Dictated by: Lashawn Nunn MD on 11/20/2022 at 09:32 Approved by: Lashawn Nunn MD on 11/20/2022 at 09:33 Normal [facility] ALLIED HEALTHon 09-30-2022 ALLIED HEALTH Normal [facility] C diff Tox gens Stl Ql MEAGAN+p robeon 09-30-2022 C. difficile toxin genes MEAGAN+probe Ql (Stl) Negative Normal Negative for C. difficile toxin by PCR [facility] Comment on above: Order Comment: Speci men Type: STOOL SPECIMENOrdering Facility: [facility] Address: [address] [address] Performed By: #### 5 4067-4 ####[facility] LABCLIA [id number] [address] [place] CASE MANAGEMon 09-30-2022 CASE MANAGEM Normal [facility] CBC panel Auto (Bld)on 09-30 Erythrocyte distribution width (RBC) [Ratio] 15.0 % Normal 11.5-15.0 [facility] Comment on above: Order Comment: Speci men Type: BLOOD SPECIMENOrdering Facility: [facility] Address: [address] [address] Performed By: #### 5 8410-2 ####[facility] LABORATORYCLIA [id number] [address] [place] Hematocrit (Bld) [Volume fraction] 33.0 % Low 36.0-46.0 [facility] Comment on above: Order Comment: Speci men Type: BLOOD SPECIMENOrdering Facility: [facility] Address: [address] [address] Performed By: #### 5 8410-2 ####[facility] LABORATORYCLIA [id number] [place] [address] [place] Hemoglobin (Bld) [Mass/Vol] 11.0 g/dL Low 11.5-15.5 [facility] Comment on above: Order Comment: Speci men Type: BLOOD SPECIMENOrdering Facility: [facility] Address: [address] [address] Performed By: #### 5 8410-2 ####[facility] LABORATORYCLIA [id number] [place] [address] [place] MCH (RBC) [Entitic mass] 28.9 pg Normal 26.0-34.0 [facility] Comment on above: Order Comment: Speci men Type: BLOOD SPECIMENOrdering Facility: [facility] Address: [address] [address] Performed By: #### 5 8410-2 ####[facility] LABORATORYCLIA [id number] [address] [place] MCHC (RBC) [Mass/Vol] 33.3 g/dL Normal 30.5-36.0 [facility] Comment on above: Order Comment: Speci men Type: BLOOD SPECIMENOrdering Facility: [facility] Address: [address] [place] [address] Performed By: #### 5 8410-2 ####[facility] LABORATORYCLIA [id number] [address] [place] MCV (RBC) [Entitic vol] 86.8 fL Normal 80.0-100.0 [facility] Comment on above: Order Comment: Speci men Type: BLOOD SPECIMENOrdering Facility: [facility] Address: [address] [place] [address] Performed By: #### 5 8410-2 ####[facility] LABORATORYCLIA [id number] [place] [address] [place] Nucleated RBC (Bld) [#/Vol] 10*3/uL Normal <0.01 [facility] Comment on above: Order Comment: Speci men Type: BLOOD SPECIMENOrdering Facility: [facility] Address: [address] [place] [address] Performed By: #### 5 8410-2 ####[facility] LABORATORYCLIA [id number] [place] [address] [place] Platelet mean volume (Bld) [Entitic vol] 11.8 fL Normal 9.0-12.7 [facility] Comment on above: Order Comment: Speci men Type: BLOOD SPECIMENOrdering Facility: [facility] Address: [address] [place] [address] Performed By: #### 5 8410-2 ####[facility] LABORATORYCLIA [id number] [address] [place] Platelets (Bld) [#/Vol] 115 10*3/uL Low 150-400 [facility] Comment on above: Order Comment: Speci men Type: BLOOD SPECIMENOrdering Facility: [facility] Address: [address] [address] Result Comment: Resu lts checked and verified.No clot detected. Performed By: #### 5 8410-2 ####[facility] LABORATORYCLIA [id number] [place] [id number] [place] RBC (Bld) [#/Vol] 3.80 10*6/uL Low 3.90-5.20 [facility] Comment on above: Order Comment: Speci men Type: BLOOD SPECIMENOrdering Facility: [facility] [facility] Address: [address] [place] [address] Performed By: #### 5 8410-2 ####JUANPABLO LABORATORYCLIA [id number] [place] [id number] [place] WBC (Bld) [#/Vol] 4.07 10*3/uL Normal 3.70-11.00 [facility] Comment on above: Order Comment: Speci men Type: BLOOD SPECIMENOrdering Facility: [facility] Address: [address] [place] [address] Performed By: #### 5 8410-2 ####[facility] LABORATORYCLIA [id number] [place] [address] [place] CNDSon 09-30-2022 CNDS Normal [facility] CONSULT PROGon 09-30-2022 CONSULT PROG Normal [facility] CONSULT PROG Normal [facility] Comprehensive metabolic 2000 panelon 09-30-2022 Albumin [Mass/Vol] 3.3 g/dL Low 3.9-4.9 [facility] Comment on above: Order Comment: Speci men Type: BLOOD SPECIMENOrdering Facility: [facility] Address: [address] [address] Performed By: #### 2 4323-8, 84520-8 ####[facility] LABORATORYCLIA [id number] [place] [address] [place] ALP [Catalytic activity/Vol] 97 U/L Normal 34-123 [facility] Comment on above: Order Comment: Speci men Type: BLOOD SPECIMENOrdering Facility: [facility] Address: [address] [address] Performed By: #### 2 4323-04, ####JUANPABLO LABORATORYCLIA [id number] [place] [address] [place] ALT [Catalytic activity/Vol] 33 U/L Normal 7-38 [facility] Comment on above: Order Comment: Speci men Type: BLOOD SPECIMENOrdering Facility: [facility] Address: [address] [facility] [place] [address] Performed By: #### 2 4323-04, ####JUANPABLO LABORATORYCLIA [id number] [place] [address] [place] Anion gap [Moles/Vol] 9 mmol/L Normal 9-18 [facility] Comment on above: Order Comment: Speci men Type: BLOOD SPECIMENOrdering Facility: [facility] Address: [address] [facility] [place] [address] Performed By: #### 2 4323-04, ####JUANPABLO LABORATORYCLIA [id number] [place] [address] [place] AST [Catalytic activity/Vol] 19 U/L Normal 13-35 [facility] Comment on above: Order Comment: Speci men Type: BLOOD SPECIMENOrdering Facility: [facility] Address: [address] [place] [address] Performed By: #### 2 4323-04, ####JUANPABLO LABORATORYCLIA [id number] [place] [address] [place] Bilirubin [Mass/Vol] 0.2 mg/dL Normal 0.2-1.3 [facility] Comment on above: Order Comment: Speci men Type: BLOOD SPECIMENOrdering Facility: [facility] Address: [address] [facility] [place] [address] Performed By: #### 2 4323-04, ####JUANPABLO LABORATORYCLIA [id number] [place] [address] [place] Calcium [Mass/Vol] 8.6 mg/dL Normal 8.5-10.2 [facility] Comment on above: Order Comment: Speci men Type: BLOOD SPECIMENOrdering Facility: [facility] Address: [address] [place] [address] Performed By: #### 2 4328, ####JUANPABLO LABORATORYCLIA [id number] [place] [address] [place] Chloride [Moles/Vol] 108 mmol/L High 97-105 [facility] Comment on above: Order Comment: Speci men Type: BLOOD SPECIMENOrdering Facility: [facility] Address: [address] [place] [address] Performed By: #### 2 4328, ####[facility] LABORATORYCLIA [id number] [place] [address] [place] CO2 [Moles/Vol] 26 mmol/L Normal 22-30 [facility] Comment on above: Order Comment: Speci men Type: BLOOD SPECIMENOrdering Facility: [facility] Address: [address] [place] [address] Performed By: #### 2 43238, ####[facility] LABORATORYCLIA [id number] [place] [address] [place] Creatinine [Mass/Vol] 0.57 mg/dL Low 0.58-0.96 [facility] Comment on above: Order Comment: Speci men Type: BLOOD SPECIMENOrdering Facility: [facility] Address: [address] [place] [address] Performed By: #### 2 4323-8, ####[facility] LABORATORYCLIA [id number] [place] [address] [place] ESTIMATED GLOMERULAR FILTRATION RATE 114 mL/min/1.73m??? Normal >=60 [facility] Comment on above: Order Comment: Speci men Type: BLOOD SPECIMENOrdering Facility: [facility] Address: [address] [place] [address] Result Comment: Randy mated Glomerular Filtration Rate (eGFR) is calculated using the 2020 CKD-EPI creatinine equation. This equation utilizes serum creatinine, sex, and age as parameters. The creatinine assay has traceable calibration to isotope dilution-mass spectrometry. Refer to KDIGO guidelines for clinical interpretation. In patients with unstable renal function, e.g. those with acute kidney injury, the eGFR may not accurately reflect actual GFR. Performed By: #### 2 43211-19, ####JUANPABLO LABORATORYCLIA [id number] [place] [address] [place] Glucose [Mass/Vol] 87 mg/dL Normal 74-99 [facility] Comment on above: Order Comment: [place] fields Type: BLOOD SPECIMENOrdering Facility: [facility] Address: [address] [id number] Result Comment: The [place] [employer] (ADA) provides guidance for cutoff values for fasting glucose and random glucose. The ADA defines fasting as no caloric intake for at least 8 hours. Fasting plasma glucose results between 100 to 125 mg/dL indicate increased risk for diabetes (prediabetes).Fasting plasma glucose results greater than or equal to 126 mg/dL meet the criteria for diagnosis of diabetes. In the absence of unequivocal hyperglycemia, results should be confirmed by repeat testing. In a patient with classic symptoms of hyperglycemia or hyperglycemic crisis, random plasma glucose results greater than or equal to 200 mg/dL meet the criteria for diagnosis of diabetes.Reference: Standards of Medical Care in Diabetes 2016, [place] [employer]. Diabetes Care. 2016.39(Suppl 1). Performed By: #### 2 4323-04, ####JUANPABLO LABORATORYCLIA [id number] [place] [address] [place] Potassium [Moles/Vol] 3.8 mmol/L Normal 3.7-5.1 [facility] Comment on above: Order Comment: [place] fields Type: BLOOD SPECIMENOrdering Facility: [facility] Address: [address] [place] [address] Performed By: #### 2 4323-04, ####JUANPABLO LABORATORYCLIA [id number] [place] [address] [place] Protein [Mass/Vol] 5.2 g/dL Low 6.3-8.0 [facility] Comment on above: Order Comment: Speci men Type: BLOOD SPECIMENOrdering Facility: [facility] Address: [address] [place] [address] Performed By: #### 2 4328, ####JUANPABLO LABORATORYCLIA [id number] [place] [address] [place] Sodium [Moles/Vol] 143 mmol/L Normal 136-144 [facility] Comment on above: Order Comment: Speci men Type: BLOOD SPECIMENOrdering Facility: [facility] Address: [address] [place] [address] Performed By: #### 2 4323-04, ####[facility] LABORATORYCLIA [id number] [place] [address] [place] Urea nitrogen [Mass/Vol] 6 mg/dL Low 7-21 [facility] Comment on above: Order Comment: Speci men Type: BLOOD SPECIMENOrdering Facility: [facility] Address: [address] [place] [address] Performed By: #### 2 8, ####[facility] LABORATORYCLIA [id number] [place] [address] [place] Magnesium SerPl-mCncon 09-30 Magnesium [Mass/Vol] 1.9 mg/dL Normal 1.7-2.3 [facility] Comment on above: Order Comment: Speci men Type: BLOOD SPECIMENOrdering Facility: [facility] Address: [place] [place] [address] Performed By: #### 2 8, ####[facility] LABORATORYCLIA [id number] [place] [address] [place] ALLIED HEALTHon 09-29-2022 ALLIED HEALTH Normal [facility] ALLIED HEALTH Normal [facility] HEALTH Normal [facility] Bacteria Bld Culton 09-29-19 23 Bacteria identified Cx Nom (Bld) CULTURE, BLOOD: No growth 5 days Normal [facility] Comment on above: Performed By: #### 6 00-7 ####[facility] LABCLIA [id number] [place] [address] [place] Bacteria identified Cx Nom (Bld) CULTURE, BLOOD: No growth 5 days Normal [facility] Comment on above: Performed By: #### 6 00-7 ####[facility] LABCLIA [id number] [place] [address] [place] Basic metabolic 2000 panelon 09-29-2022 Anion gap [Moles/Vol] 7 mmol/L Low 9-18 [facility] Comment on above: Order Comment: Speci men Type: BLOOD SPECIMENOrdering Facility: [facility] Address: [address] [address] Performed By: #### 2 4321-2 ####J[facility]AN[facility]ABLO LABORATORYCLIA [id number] [place] [address] [place] Calcium [Mass/Vol] 8.4 mg/dL Low 8.5-10.2 [facility] Comment on above: Order Comment: Speci men Type: BLOOD SPECIMENOrdering Facility: [facility] Address: [address] [address] Performed By: #### 2 4321-2 ####[facility] LABORATORYCLIA [id number] [place] [address] [place] Chloride [Moles/Vol] 108 mmol/L High 97-105 [facility] Comment on above: Order Comment: Speci men Type: BLOOD SPECIMENOrdering Facility: [facility] Address: [address] [address] Performed By: #### 2 4321-2 ####[facility] LABORATORYCLIA [id number] [place] [address] [place] CO2 [Moles/Vol] 24 mmol/L Normal 22-30 [facility] Comment on above: Order Comment: Speci men Type: BLOOD SPECIMENOrdering Facility: [facility] Address: [address] [address] Performed By: #### 2 4321-2 ####J[facility]ANPABLO LABORATORYCLIA [id number] [place] [address] [place] Creatinine [Mass/Vol] 0.56 mg/dL Low 0.58-0.96 [facility] Comment on above: Order Comment: [place] donnie Type: BLOOD SPECIMENOrdering Facility: [facility] Address: [address] [address] Performed By: #### 2 4321-2 ####[facility] LABORATORYCLIA [id number] [address] ESTIMATED GLOMERULAR FILTRATION RATE 114 mL/min/1.73m??? Normal >=60 [facility] Comment on above: Order Comment: [place] fields Type: BLOOD SPECIMENOrdering Facility: [facility] Address: [address] [place] [address] Result Comment: Randy mated Glomerular Filtration Rate (eGFR) is calculated using the 2020 CKD-EPI creatinine equation. This equation utilizes serum creatinine, sex, and age as parameters. The creatinine assay has traceable calibration to isotope dilution-mass spectrometry. Refer to KDIGO guidelines for clinical interpretation. In patients with unstable renal function, e.g. those with acute kidney injury, the eGFR may not accurately reflect actual GFR. Performed By: #### 2 4321-2 ####TU[facility]LO LABORATORYIA [id number] [address] [place] Glucose [Mass/Vol] 91 mg/dL Normal 74-99 [facility] Comment on above: Order Comment: [place] fields Type: BLOOD SPECIMENOrdering Facility: [facility] Address: [address] [address] Result Comment: The [place] Diabetes [employer] (ADA) provides guidance for cutoff values for fasting glucose and random glucose. The ADA defines fasting as no caloric intake for at least 8 hours. Fasting plasma glucose results between 100 to 125 mg/dL indicate increased risk for diabetes (prediabetes).Fasting plasma glucose results greater than or equal to 126 mg/dL meet the criteria for diagnosis of diabetes. In the absence of unequivocal hyperglycemia, results should be confirmed by repeat testing. In a patient with classic symptoms of hyperglycemia or hyperglycemic crisis, random plasma glucose results greater than or equal to 200 mg/dL meet the criteria for diagnosis of diabetes.Reference: Standards of Medical Care in Diabetes 2016, [place] [employer]. Diabetes Care. 2016.39(Suppl 1). Performed By: #### 2 4321-2 ####[facility] LABORATORYCLIA [id number] [place] [address] [place] [facility] Potassium [Moles/Vol] 3.7 mmol/L Normal 3.7-5.1 [facility] Comment on above: Order Comment: Speci men Type: BLOOD SPECIMENOrdering Facility: [facility] Address: [address] [address] Performed By: #### 2 4321-2 ####[facility] LABORATORYCLIA [id number] [address] [place] Sodium [Moles/Vol] 139 mmol/L Normal 136-144 [facility] Comment on above: Order Comment: Speci men Type: BLOOD SPECIMENOrdering Facility: [facility] Address: [address] [place] [address] Performed By: #### 2 4321-2 ####[facility] LABORATORYCLIA [id number] [address] [place] Urea nitrogen [Mass/Vol] 10 mg/dL Normal 7-21 [facility] Comment on above: Order Comment: Speci men Type: BLOOD SPECIMENOrdering Facility: [facility] Address: [address] [place] [address] Performed By: #### 2 4321-2 ####[facility] LABORATORYCLIA [id number] [place] [address] [place] CASE MANAGEMon 09-29-2022 CASE MANAGEM Normal [facility] CBC panel Auto (Bld)on 09-29 Erythrocyte distribution width (RBC) [Ratio] 14.9 % Normal 11.5-15.0 [facility] Comment on above: Order Comment: Speci men Type: BLOOD SPECIMENOrdering Facility: [facility] Address: [address] [place] [address] Performed By: #### 5 8410-2 ####[facility] LABORATORYCLIA [id number] [address] [place] Hematocrit (Bld) [Volume fraction] 32.7 % Low 36.0-46.0 [facility] Comment on above: Order Comment: Speci men Type: BLOOD SPECIMENOrdering Facility: [facility] Address: [address] [place] [address] Performed By: #### 5 8410-2 ####JUANPABLO LABORATORYCLIA [id number] [place] [address] [place] Hemoglobin (Bld) [Mass/Vol] 11.0 g/dL Low 11.5-15.5 [facility] Comment on above: Order Comment: Speci men Type: BLOOD SPECIMENOrdering Facility: [facility] Address: [address] [place] [address] Performed By: #### 5 8410-2 ####JUANPABLO LABORATORYCLIA [id number] [address] [place] MCH (RBC) [Entitic mass] 29.3 pg Normal 26.0-34.0 [facility] Comment on above: Order Comment: Speci men Type: BLOOD SPECIMENOrdering Facility: [facility] Address: [address] [place] [address] Performed By: #### 5 8410-2 ####JUANPABLO LABORATORYCLIA [id number] [address] [place] MCHC (RBC) [Mass/Vol] 33.6 g/dL Normal 30.5-36.0 [facility] Comment on above: Order Comment: Speci men Type: BLOOD SPECIMENOrdering Facility: [facility] Address: [address] [place] [address] Performed By: #### 5 8410-2 ####[facility] LABORATORYCLIA [id number] [address] [place] MCV (RBC) [Entitic vol] 87.0 fL Normal 80.0-100.0 [facility] Comment on above: Order Comment: Speci men Type: BLOOD SPECIMENOrdering Facility: [facility] Address: [address] [place] [address] Performed By: #### 5 8410-2 ####[facility] LABORATORYCLIA [id number] [place] [id number] [place] Nucleated RBC (Bld) [#/Vol] 10*3/uL Normal <0.01 [facility] Comment on above: Order Comment: Speci men Type: BLOOD SPECIMENOrdering Facility: [facility] Address: [address] [place] [address] Performed By: #### 5 8410-2 ####[facility] LABORATORYCLIA [id number] [place] [address] [facility] [place] Platelet mean volume (Bld) [Entitic vol] 11.1 fL Normal 9.0-12.7 [facility] Comment on above: Order Comment: Speci men Type: BLOOD SPECIMENOrdering Facility: [facility] Address: [address] [place] [address] Performed By: #### 5 8410-2 ####[facility] LABORATORYCLIA [id number] [place] [address] [place] Platelets (Bld) [#/Vol] 91 10*3/uL Low 150-400 [facility] Comment on above: Order Comment: Speci men Type: BLOOD SPECIMENOrdering Facility: [facility] Address: [address] [place] [address] Result Comment: Resu lts checked and verified.No clot detected. Performed By: #### 5 8410-2 ####[facility] LABORATORYCLIA [id number] [place] [address] [place] RBC (Bld) [#/Vol] 3.76 10*6/uL Low 3.90-5.20 [facility] Comment on above: Order Comment: Speci men Type: BLOOD SPECIMENOrdering Facility: [facility] Address: [address] [place] [address] Performed By: #### 5 8410-2 ####[facility] LABORATORYCLIA [id number] [place] [address] [place] WBC (Bld) [#/Vol] 4.18 10*3/uL Normal 3.70-11.00 [facility] Comment on above: Order Comment: Speci men Type: BLOOD SPECIMENOrdering Facility: [facility] Address: [address] [place] [address] Performed By: #### 5 8410-2 ####JUANPABLO LABORATORYCLIA [id number] [place] [address] [place] CONSULTon 09-29-2022 CONSULT Normal [facility] CONSULT PROGon 09-29-2022 CONSULT PROG Normal [facility] CONSULT PROG [facility] CT ABD/PEL W IVCONon 023 CT ABD/PEL W IVCON Normal [facility] HISTORY PHYSICALon HISTORY PHYSICAL Normal [facility] NURSING PROGon 09-29-2022 NURSING PROG Normal [facility] ALLIED HEALTHon 09-28-2022 ALLIED HEALTH Normal [facility] ALLIED HEALTH Normal [facility] CASE MGT INIT ASSESon 2022 [facility] CBC W Auto Differential pane l (Bld)on 09-28-2022 Basophils (Bld) [#/Vol] 0.05 10*3/uL Normal <0.11 [facility] Comment on above: Order Comment: Speci men Type: BLOOD SPECIMENOrdering Facility: [facility] Address: [address] [place] [address] Performed By: #### 5 7021-8 ####JUAN[facility]ABLO LABORATORYCLIA [id number] [place] [address] [place] Basophils/100 WBC (Bld) 1.3 % Normal [facility] Comment on above: Order Comment: Speci men Type: BLOOD SPECIMENOrdering Facility: [facility] Address: [address] [place] [address] Performed By: #### 5 7021-8 ####J[facility]AN[facility] LABORATORYCLIA [id number] [place] [address] [place] Differential cell count method Nom (Bld) Auto Normal [facility] Comment on above: Order Comment: Speci men Type: BLOOD SPECIMENOrdering Facility: [facility] Address: [address] [place] [address] Performed By: #### 5 7021-8 ####J[facility]AN[facility] LABORATORYCLIA [id number] [place] [address] [place] Eosinophils (Bld) [#/Vol] 0.06 10*3/uL Normal <0.46 [facility] Comment on above: Order Comment: Speci men Type: BLOOD SPECIMENOrdering Facility: [facility] Address: [address] [address] Performed By: #### 5 7021-8 ####JUAN[facility]AB[facility] LABORATORYCLIA [id number] [place] [address] [facility] [place] Eosinophils/100 WBC (Bld) 1.6 % Normal [facility] Comment on above: Order Comment: Speci men Type: BLOOD SPECIMENOrdering Facility: [facility] Address: [address] [address] Performed By: #### 5 7021-8 ####J[facility]AN[facility] LABORATORYCLIA [id number] [address] [place] Erythrocyte distribution width (RBC) [Ratio] 15.1 % High 11.5-15.0 [facility] Comment on above: Order Comment: Speci men Type: BLOOD SPECIMENOrdering Facility: [facility] Address: [address] [place] [address] Performed By: #### 5 7021-8 ####J[facility]AN[facility] LABORATORYCLIA [id number] [place] [address] [place] Hematocrit (Bld) [Volume fraction] 38.3 % Normal 36.0-46.0 [facility] Comment on above: Order Comment: Speci men Type: BLOOD SPECIMENOrdering Facility: [facility] Address: [address] [place] [address] Performed By: #### 5 7021-8 ####J[facility] LABORATORYCLIA [id number] [place] [address] [place] Hemoglobin (Bld) [Mass/Vol] 12.6 g/dL Normal 11.5-15.5 [facility] Comment on above: Order Comment: Speci men Type: BLOOD SPECIMENOrdering Facility: [facility] Address: [address] [address] Performed By: #### 5 7021-8 ####J[facility] LABORATORYCLIA [id number] [place] [id number] [place] Immature granulocytes (Bld) [#/Vol] 10*3/uL Normal <0.10 [facility] Comment on above: Order Comment: Speci men Type: BLOOD SPECIMENOrdering Facility: [facility] Address: [address] [address] Performed By: #### 5 7021-8 ####[facility] LABORATORYCLIA [id number] [address] [place] [facility] Immature granulocytes/100 WBC (Bld) 0.3 % Normal [facility] Comment on above: Order Comment: Speci men Type: BLOOD SPECIMENOrdering Facility: [facility] Address: [address] [address] Performed By: #### 5 7021-8 ####[facility] LABORATORYCLIA [id number] [place] [address] [place] Lymphocytes (Bld) [#/Vol] 1.33 10*3/uL Normal 1.00-4.00 [facility] Comment on above: Order Comment: Speci men Type: BLOOD SPECIMENOrdering Facility: [facility] Address: [address] [place] [address] Performed By: #### 5 7021-8 ####J[facility]AN[facility] LABORATORYCLIA [id number] [address] [place] Lymphocytes/100 WBC (Bld) 35.8 % Normal [facility] Comment on above: Order Comment: Speci men Type: BLOOD SPECIMENOrdering Facility: [facility] Address: [address] [place] [address] Performed By: #### 5 7021-8 ####[facility] LABORATORYCLIA [id number] [place] [address] [place] MCH (RBC) [Entitic mass] 28.7 pg Normal 26.0-34.0 [facility] Comment on above: Order Comment: Speci men Type: BLOOD SPECIMENOrdering Facility: [facility] Address: [address] [place] [address] Performed By: #### 5 7021-8 ####J[facility]AN[facility] LABORATORYCLIA [id number] [address] [place] MCHC (RBC) [Mass/Vol] 32.9 g/dL Normal 30.5-36.0 [facility] Comment on above: Order Comment: Speci men Type: BLOOD SPECIMENOrdering Facility: [facility] Address: [address] [place] [address] Performed By: #### 5 7021-8 ####J[facility] LABORATORYCLIA [id number] [address] [place] MCV (RBC) [Entitic vol] 87.2 fL Normal 80.0-100.0 [facility] Comment on above: Order Comment: Speci men Type: BLOOD SPECIMENOrdering Facility: [facility] Address: [address] [place] [address] Performed By: #### 5 7021-8 ####J[facility] LABORATORYCLIA [id number] [address] [place] Monocytes (Bld) [#/Vol] 0.35 10*3/uL Normal <0.87 [facility] Comment on above: Order Comment: Speci men Type: BLOOD SPECIMENOrdering Facility: [facility] Address: [address] [address] Performed By: #### 5 7021-8 ####[facility] LABORATORYCLIA [id number] [address] Monocytes/100 WBC (Bld) 9.4 % Normal [facility] Comment on above: Order Comment: Speci men Type: BLOOD SPECIMENOrdering Facility: [facility] Address: [address] [place] [address] Performed By: #### 5 7021-8 ####JUANPABLO LABORATORYCLIA [id number] [place] [address] [place] Neutrophils (Bld) [#/Vol] 1.92 10*3/uL Normal 1.45-7.50 [facility] Comment on above: Order Comment: Speci men Type: BLOOD SPECIMENOrdering Facility: [facility] Address: [address] [place] [address] Performed By: #### 5 7021-8 ####JUANPABLO LABORATORYCLIA [id number] [place] [address] [place] Neutrophils/100 WBC (Bld) 51.6 % Normal [facility] Comment on above: Order Comment: Speci men Type: BLOOD SPECIMENOrdering Facility: [facility] Address: [address] [place] [address] Performed By: #### 5 7021-8 ####JUANPABLO LABORATORYCLIA [id number] [place] [address] [place] Nucleated RBC (Bld) [#/Vol] 10*3/uL Normal <0.01 [facility] Comment on above: Order Comment: Speci men Type: BLOOD SPECIMENOrdering Facility: [facility] Address: [address] [place] [address] Performed By: #### 5 7021-8 ####JUANPABLO LABORATORYCLIA [id number] [place] [address] [place] Nucleated RBC/100 WBC (Bld) [Ratio] 0.0 /100 WBC Normal [facility] Comment on above: Order Comment: Speci men Type: BLOOD SPECIMENOrdering Facility: [facility] Address: [address] [place] [address] Performed By: #### 5 7021-8 ####[facility] LABORATORYCLIA [id number] [place] [id number] [place] Platelet mean volume (Bld) [Entitic vol] 10.3 fL Normal 9.0-12.7 [facility] Comment on above: Order Comment: Speci men Type: BLOOD SPECIMENOrdering Facility: [facility] Address: [address] [place] [address] Performed By: #### 5 7021-8 ####TU[facility] LABORATORYCLIA [id number] [place] [address] [place] Platelets (Bld) [#/Vol] 112 10*3/uL Low 150-400 [facility] Comment on above: Order Comment: Speci men Type: BLOOD SPECIMENOrdering Facility: [facility] Address: [address] [place] [address] Result Comment: Plat elet count confirmed by manual review of peripheral blood smear.No clot detected. Performed By: #### 5 7021-8 ####[facility] LABORATORYCLIA [id number] [place] [address] [place] RBC (Bld) [#/Vol] 4.39 10*6/uL Normal 3.90-5.20 [facility] Comment on above: Order Comment: Speci men Type: BLOOD SPECIMENOrdering Facility: [facility] Address: [address] [place] [address] Performed By: #### 5 7021-8 ####TU[facility]LO LABORATORYCLIA [id number] [place] [address] [place] WBC (Bld) [#/Vol] 3.72 10*3/uL Normal 3.70-11.00 [facility] Comment on above: Order Comment: Speci men Type: BLOOD SPECIMENOrdering Facility: [facility] Address: [address] [place] [address] Performed By: #### 5 7021-8 ####TU[facility] LABORATORYCLIA [id number] [place] [id number] [place] CONSULTon 09-28-2022 CONSULT Normal [facility] Comprehensive metabolic 2000 panelon 09-28-2022 Albumin [Mass/Vol] 3.7 g/dL Low 3.9-4.9 [facility] Comment on above: Order Comment: Speci men Type: BLOOD SPECIMENOrdering Facility: [facility] Address: [address] [place] [address] Performed By: #### 2 4323-8, 15746-9 ####TUPELO LABORATORYCLIA [id number] [place] [address] [place] ALP [Catalytic activity/Vol] 114 U/L Normal 34-123 [facility] Comment on above: Order Comment: Speci men Type: BLOOD SPECIMENOrdering Facility: [facility] Address: [address] [place] [address] Performed By: #### 2 4323-8, ####JUANPABLO LABORATORYCLIA [id number] [place] [address] [place] ALT [Catalytic activity/Vol] 58 U/L High 7-38 [facility] Comment on above: Order Comment: Speci men Type: BLOOD SPECIMENOrdering Facility: [facility] Address: [address] [place] [address] Performed By: #### 2 8, ####JUANPABLO LABORATORYCLIA [id number] [place] [address] [place] Anion gap [Moles/Vol] 11 mmol/L Normal 9-18 [facility] Comment on above: Order Comment: Speci men Type: BLOOD SPECIMENOrdering Facility: [facility] Address: [address] [place] [address] Performed By: #### 2 8, ####JUANPABLO LABORATORYCLIA [id number] [place] [address] [place] AST [Catalytic activity/Vol] 42 U/L High 13-35 [facility] Comment on above: Order Comment: Speci men Type: BLOOD SPECIMENOrdering Facility: [facility] Address: [address] [place] [place] [address] Performed By: #### 2 4323-8, ####JUANPABLO LABORATORYCLIA [id number] [place] [address] [place] Bilirubin [Mass/Vol] 0.2 mg/dL Normal 0.2-1.3 [facility] Comment on above: Order Comment: Speci men Type: BLOOD SPECIMENOrdering Facility: [facility] Address: [address] [place] [address] Performed By: #### 2 4323-04, ####[facility] LABORATORYCLIA [id number] [place] [address] [place] Calcium [Mass/Vol] 8.5 mg/dL Normal 8.5-10.2 [facility] Comment on above: Order Comment: Speci men Type: BLOOD SPECIMENOrdering Facility: [facility] Address: [address] Performed By: #### 2 4323-04, ####[facility] LABORATORYCLIA [id number] [place] [address] [place] Chloride [Moles/Vol] 103 mmol/L Normal 97-105 [facility] Comment on above: Order Comment: Speci men Type: BLOOD SPECIMENOrdering Facility: [facility] Address: [address] Performed By: #### 2 4323-04, ####TU[facility] LABORATORYCLIA [id number] [place] [address] [place] CO2 [Moles/Vol] 23 mmol/L Normal 22-30 [facility] Comment on above: Order Comment: Speci men Type: BLOOD SPECIMENOrdering Facility: [facility] Address: [address] Performed By: #### 2 4323-04, ####[facility] LABORATORYCLIA [id number] [place] [address] [place] Creatinine [Mass/Vol] 0.59 mg/dL Normal 0.58-0.96 [facility] Comment on above: Order Comment: Speci men Type: BLOOD SPECIMENOrdering Facility: [facility] Address: [address] Performed By: #### 2 4323-04, ####[facility] LABORATORYCLIA [id number] [place] [address] [place] ESTIMATED GLOMERULAR FILTRATION RATE 113 mL/min/1.73m??? Normal >=60 [facility] Comment on above: Order Comment: [place] Type: BLOOD SPECIMENOrdering Facility: [facility] Address: [address] [place] [id number] Result Comment: Randy mated Glomerular Filtration Rate (eGFR) is calculated using the 2020 CKD-EPI creatinine equation. This equation utilizes serum creatinine, sex, and age as parameters. The creatinine assay has traceable calibration to isotope dilution-mass spectrometry. Refer to KDIGO guidelines for clinical interpretation. In patients with unstable renal function, e.g. those with acute kidney injury, the eGFR may not accurately reflect actual GFR. Performed By: #### 2 4323-8, ####TU[facility] LABORATORYCLIA [id number] [place] [address] [place] Glucose [Mass/Vol] 99 mg/dL Normal 74-99 [facility] Comment on above: Order Comment: [place] Type: BLOOD SPECIMENOrdering Facility: [facility] Address: [address] Result Comment: The [place] [employer] (ADA) provides guidance for cutoff values for fasting glucose and random glucose. The ADA defines fasting as no caloric intake for at least 8 hours. Fasting plasma glucose results between 100 to 125 mg/dL indicate increased risk for diabetes (prediabetes).Fasting plasma glucose results greater than or equal to 126 mg/dL meet the criteria for diagnosis of diabetes. In the absence of unequivocal hyperglycemia, results should be confirmed by repeat testing. In a patient with classic symptoms of hyperglycemia or hyperglycemic crisis, random plasma glucose results greater than or equal to 200 mg/dL meet the criteria for diagnosis of diabetes.Reference: Standards of Medical Care in Diabetes 2016, [place] [employer]. Diabetes Care. 2016.39(Suppl 1). Performed By: #### 2 4323-8, ####TU[facility] LABORATORYCLIA [id number] [place] [address] [place] Potassium [Moles/Vol] 3.5 mmol/L Low 3.7-5.1 [facility] Comment on above: Order Comment: [place] Type: BLOOD SPECIMENOrdering Facility: [facility] Address: [address] [place] [phone] Performed By: #### 2 4323-8, ####[facility] LABORATORYCLIA [id number] [place] [address] [place] Protein [Mass/Vol] 6.0 g/dL Low 6.3-8.0 [facility] Comment on above: Order Comment: Speci men Type: BLOOD SPECIMENOrdering Facility: [facility] Address: [address] [place] [address] Performed By: #### 2 432-8, ####[facility] LABORATORYCLIA [id number] [place] [address] [place] Sodium [Moles/Vol] 137 mmol/L Normal 136-144 [facility] Comment on above: Order Comment: Speci men Type: BLOOD SPECIMENOrdering Facility: [facility] Address: [address] [place] [address] Performed By: #### 2 4328, ####[facility] LABORATORYCLIA [id number] [place] [address] [place] Urea nitrogen [Mass/Vol] 14 mg/dL Normal 7-21 [facility] Comment on above: Order Comment: Speci men Type: BLOOD SPECIMENOrdering Facility: [facility] Address: [address] [place] [address] Performed By: #### 2 432-8, ####[facility] LABORATORYCLIA [id number] [place] [address] [place] ED NOTEon 09-28-2022 ED NOTE HNO ID: [id number] Author: Leslie Mccullough RN Service: ? Author Type: Registered Nurse Type: ED Notes Filed: 09/28/2022 7:18 PM Note Text: [facility] ED NOTE HNO ID: [id number] Author: Svetlana Henderson RN Service: ? Author Type: Registered Nurse Type: ED Notes Filed: 09/28/2022 7:15 PM Note Text: Received report from Leslie Jordan RN. Pt care assumed. [facility] ED NOTE [facility] ED NOTE HNO ID: [id number] Author: Ravi Lovett, RN Service: ? Author Type: Registered Nurse Type: ED Notes Filed: 09/28/2022 12:09 PM Note Text: Bed: 34-ED Expected date: Expected time: Means of arrival: Comments: Triage Normal [facility] ED PROV NOTEon 09-28-2022 ED PROV NOTE Normal [facility] FLUABV+SARS-CoV-2+RSV Pnl Re sp MEAGAN+probeon 09-28-2022 FLUABV+SARS-CoV-2+RSV Pnl Resp MEAGAN+probe Normal [facility] Comment on above: Performed By: #### 9 5941-1 ####JUANPABLO LABORATORYCLIA [id number] [place] [address] [place] Magnesium SerPl-mCncon 09-28 Magnesium [Mass/Vol] 1.9 mg/dL Normal 1.7-2.3 [facility] Comment on above: Order Comment: Speci men Type: BLOOD SPECIMENOrdering Facility: [facility] Address: [address] [place] [address] Performed By: #### 2 4323-8, 69593-6 ####JUAN[facility] LABORATORYCLIA [id number] [place] [address] [place] NURSING PROGon 09-28-2022 NURSING PROG Normal [facility] Urinalysis complete panel (U )on 09-28-2022 Bilirubin Ql (U) Negative Normal Negative [facility] Comment on above: Order Comment: Speci men Type: URINE SPECIMENOrdering Facility: [facility] Address: [address] [place] [address] Performed By: #### 2 4356-8 ####JUANPABLO LABORATORYCLIA [id number] [address] [place] Clarity (Unsp spec) Clear Normal Clear [facility] Comment on above: Order Comment: Speci men Type: URINE SPECIMENOrdering Facility: [facility] Address: [address] [place] [address] Performed By: #### 2 4356-8 ####JUANPABLO LABORATORYCLIA [id number] [address] STATES OF [facility] Color (U) Light Yellow Normal Yellow [facility] Comment on above: Order Comment: Speci men Type: URINE SPECIMENOrdering Facility: [facility] Address: [address] [place] [address] Performed By: #### 2 4356-8 ####JUANPABLO LABORATORYCLIA [id number] [address] [place] Epithelial cells LM.HPF (Urine sed) [#/Area] Few Normal [facility] Comment on above: Order Comment: Speci men Type: URINE SPECIMENOrdering Facility: [facility] Address: [address] [place] [address] Performed By: #### 2 4356-8 ####JUANPABLO LABORATORYCLIA [id number] [address] STATES [facility] Glucose Test strip (U) [Mass/Vol] Negative Normal Trace, Negative [facility] Comment on above: Order Comment: Speci men Type: URINE SPECIMENOrdering Facility: [facility] Address: [address] [place] [address] Performed By: #### 2 4356-8 ####[facility] LABORATORYCLIA [id number] [place] [address] [place] [facility] Hemoglobin Ql (U) Negative Normal Negative, Trace [facility] Comment on above: Order Comment: Speci men Type: URINE SPECIMENOrdering Facility: [facility] Address: [address] [place] [address] Performed By: #### 2 4356-8 ####[facility] LABORATORYCLIA [id number] [place] [address] [place] Ketones Ql (U) Negative Normal Negative, Trace [facility] Comment on above: Order Comment: Speci men Type: URINE SPECIMENOrdering Facility: [facility] Address: [address] [place] [address] Performed By: #### 2 4356-8 ####J[facility]AN[facility]ABLO LABORATORYCLIA [id number] [place] [address] [place] Leukocyte esterase Test strip Ql (U) Negative Normal Negative, 25 Danielle/mL [facility] Comment on above: Order Comment: Speci men Type: URINE SPECIMENOrdering Facility: [facility] Address: [address] [place] [address] Performed By: #### 2 4356-8 ####[facility] LABORATORYCLIA [id number] [place] [address] [place] Nitrite Ql (U) Negative Normal Negative [facility] Comment on above: Order Comment: Speci men Type: URINE SPECIMENOrdering Facility: [facility] Address: [address] [place] [address] Performed By: #### 2 4356-8 ####[facility] LABORATORYCLIA [id number] [place] [address] [place] pH (U) 6.0 [pH] Normal 5.0-8.0 [facility] Comment on above: Order Comment: Speci men Type: URINE SPECIMENOrdering Facility: [facility] Address: [address] [place] [address] Performed By: #### 2 4356-8 ####[facility] LABORATORYCLIA [id number] [place] [address] [place] Protein (U) [Mass/Vol] Trace Normal Trace, Negative [facility] Comment on above: Order Comment: Speci men Type: URINE SPECIMENOrdering Facility: [facility] Address: [address] [place] [address] Performed By: #### 2 4356-8 ####[facility] LABORATORYCLIA [id number] [place] [address] [place] RBC LM.HPF (Urine sed) [#/Area] 0-3 /HPF Normal 0-3 /HPF [facility] Comment on above: Order Comment: Speci men Type: URINE SPECIMENOrdering Facility: [facility] Address: [address] [place] [address] Performed By: #### 2 4356-8 ####[facility] LABORATORYCLIA [id number] [place] [address] [place] Specific gravity (U) [Rel density] 1.012 Normal 1.005-1.03 0 [facility] Comment on above: Order Comment: Speci men Type: URINE SPECIMENOrdering Facility: [facility] Address: [address] [place] [address] Performed By: #### 2 4356-8 ####[facility] LABORATORYCLIA [id number] [place] [address] [place] Urobilinogen Ql (U) Negative Normal Negative [facility] Comment on above: Order Comment: Speci men Type: URINE SPECIMENOrdering Facility: [facility] Address: [address] [place] [address] Performed By: #### 2 4356-8 ####[facility] LABORATORYCLIA [id number] [place] [address] [place] WBC LM.HPF (Urine sed) [#/Area] 0-5 /HPF Normal 0-5 /HPF [facility] Comment on above: Order Comment: Speci men Type: URINE SPECIMENOrdering Facility: [facility] Address: [address] [place] [address] Performed By: #### 2 4356-8 ####[facility] LABORATORYCLIA [id number] [address] [place] XR ABDOMEN 1V SUPINEon 09-28 XR ABDOMEN 1V SUPINE [facility] XR CHEST 1V FRONTAL PORTon 0 09-28-2022 XR CHEST 1V FRONTAL PORT [facility] CNDSon 09-21-2022 CNDS [facility] NURSING PROGon 09-20-2022 NURSING PROG [facility] NURSING PROG [facility] CONSULTon 09-19-2022 CONSULT [facility] NURSING PROGon 09-19-2022 NURSING PROG [facility] NURSING PROG [facility] NURSING PROG [facility] Basic metabolic 2000 panelon 09-18-2022 Anion gap [Moles/Vol] 9 mmol/L Normal 9-18 [facility] Comment on above: Order Comment: Speci men Type: BLOOD SPECIMENOrdering Facility: [facility] Address: [address] [place] [address] Performed By: #### 2 4321-2 ####[facility] LABORATORYCLIA [id number] [place] [address] [place] Calcium [Mass/Vol] 9.1 mg/dL Normal 8.5-10.2 [facility] Comment on above: Order Comment: Speci men Type: BLOOD SPECIMENOrdering Facility: [facility] Address: [address] [place] [address] Performed By: #### 2 4321-2 ####[facility] LABORATORYCLIA [id number] [place] [address] [place] Chloride [Moles/Vol] 105 mmol/L Normal 97-105 [facility] Comment on above: Order Comment: Speci men Type: BLOOD SPECIMENOrdering Facility: [facility] Address: [address] [place] [place] [address] Performed By: #### 2 4321-2 ####[facility] LABORATORYCLIA [id number] [place] [address] [place] CO2 [Moles/Vol] 27 mmol/L Normal 22-30 [facility] Comment on above: Order Comment: Speci men Type: BLOOD SPECIMENOrdering Facility: [facility] Address: [address] [place] [address] Performed By: #### 2 4321-2 ####[facility] LABORATORYCLIA [id number] [place] [address] [place] Creatinine [Mass/Vol] 0.62 mg/dL Normal 0.58-0.96 [facility] Comment on above: Order Comment: Speci men Type: BLOOD SPECIMENOrdering Facility: [facility] Address: [address] [place] [address] Performed By: #### 2 4321-2 ####[facility] LABORATORYCLIA [id number] [place] [address] [place] ESTIMATED GLOMERULAR FILTRATION RATE 112 mL/min/1.73m??? Normal >=60 [facility] Comment on above: Order Comment: Speci men Type: BLOOD SPECIMENOrdering Facility: [facility] Address: [address] [place] [place] [phone] Result Comment: Randy mated Glomerular Filtration Rate (eGFR) is calculated using the 2020 CKD-EPI creatinine equation. This equation utilizes serum creatinine, sex, and age as parameters. The creatinine assay has traceable calibration to isotope dilution-mass spectrometry. Refer to KDIGO guidelines for clinical interpretation. In patients with unstable renal function, e.g. those with acute kidney injury, the eGFR may not accurately reflect actual GFR. Performed By: #### 2 4321-2 ####[facility] LABORATORYCLIA [id number] [place] [address] [place] Glucose [Mass/Vol] 90 mg/dL Normal 74-99 [facility] Comment on above: Order Comment: [place] Type: BLOOD SPECIMENOrdering Facility: [facility] Address: [address] [place] [address] Result Comment: The [place] [employer] (ADA) provides guidance for cutoff values for fasting glucose and random glucose. The ADA defines fasting as no caloric intake for at least 8 hours. Fasting plasma glucose results between 100 to 125 mg/dL indicate increased risk for diabetes (prediabetes).Fasting plasma glucose results greater than or equal to 126 mg/dL meet the criteria for diagnosis of diabetes. In the absence of unequivocal hyperglycemia, results should be confirmed by repeat testing. In a patient with classic symptoms of hyperglycemia or hyperglycemic crisis, random plasma glucose results greater than or equal to 200 mg/dL meet the criteria for diagnosis of diabetes.Reference: Standards of Medical Care in Diabetes 2016, [place] [employer]. Diabetes Care. 2016.39(Suppl 1). Performed By: #### 2 4321-2 ####[facility] LABORATORYCLIA [id number] [place] [address] [place] Potassium [Moles/Vol] 4.2 mmol/L Normal 3.7-5.1 [facility] Comment on above: Order Comment: [place] Type: BLOOD SPECIMENOrdering Facility: [facility] Address: [address] [place] [phone] Performed By: #### 2 4321-2 ####[facility] LABORATORYCLIA [id number] [place] [address] [place] Sodium [Moles/Vol] 141 mmol/L Normal 136-144 [facility] Comment on above: Order Comment: Speci men Type: BLOOD SPECIMENOrdering Facility: [facility] Address: [address] [place] [address] Performed By: #### 2 4321-2 ####[facility] LABORATORYCLIA [id number] [place] [address] [place] Urea nitrogen [Mass/Vol] 7 mg/dL Normal 7-21 [facility] Comment on above: Order Comment: Speci men Type: BLOOD SPECIMENOrdering Facility: [facility] Address: [address] [place] [address] Performed By: #### 2 4321-2 ####[facility] LABORATORYCLIA [id number] [address] [place] CASE MGT INIT ASSESon 2022 CASE MGT INIT ASSES Normal [facility] CBC panel Auto (Bld)on 09-18 Erythrocyte distribution width (RBC) [Ratio] 14.8 % Normal 11.5-15.0 [facility] Comment on above: Order Comment: Speci men Type: BLOOD SPECIMENOrdering Facility: [facility] Address: [address] [place] [address] Performed By: #### 5 8410-2 ####[facility] LABORATORYCLIA [id number] [place] [address] [place] Hematocrit (Bld) [Volume fraction] 35.7 % Low 36.0-46.0 [facility] Comment on above: Order Comment: Speci men Type: BLOOD SPECIMENOrdering Facility: [facility] Address: [address] [place] [address] Performed By: #### 5 8410-2 ####[facility] LABORATORYCLIA [id number] [place] [address] [place] Hemoglobin (Bld) [Mass/Vol] 11.5 g/dL Normal 11.5-15.5 [facility] Comment on above: Order Comment: Speci men Type: BLOOD SPECIMENOrdering Facility: [facility] Address: [address] [address] Performed By: #### 5 8410-2 ####[facility] LABORATORYCLIA [id number] [address] MCH (RBC) [Entitic mass] 28.8 pg Normal 26.0-34.0 [facility] Comment on above: Order Comment: Speci men Type: BLOOD SPECIMENOrdering Facility: [facility] Address: [address] [address] Performed By: #### 5 8410-2 ####[facility] [facility] LABORATORYCLIA [id number] [address] MCHC (RBC) [Mass/Vol] 32.2 g/dL Normal 30.5-36.0 [facility] Comment on above: Order Comment: Speci men Type: BLOOD SPECIMENOrdering Facility: [facility] Address: [address] [address] Performed By: #### 5 8410-2 ####[facility] LABORATORYCLIA [id number] [address] MCV (RBC) [Entitic vol] 89.5 fL Normal 80.0-100.0 [facility] Comment on above: Order Comment: Speci men Type: BLOOD SPECIMENOrdering Facility: [facility] Address: [address] [address] Performed By: #### 5 8410-2 ####[facility] LABORATORYCLIA [id number] [address] Nucleated RBC (Bld) [#/Vol] 10*3/uL Normal <0.01 [facility] Comment on above: Order Comment: Speci men Type: BLOOD SPECIMENOrdering Facility: [facility] Address: [address] [place] [address] Performed By: #### 5 8410-2 ####[facility] LABORATORYCLIA [id number] [address] [place] Platelet mean volume (Bld) [Entitic vol] 10.3 fL Normal 9.0-12.7 [facility] Comment on above: Order Comment: Speci men Type: BLOOD SPECIMENOrdering Facility: [facility] Address: [address] [place] [address] Performed By: #### 5 8410-2 ####[facility] LABORATORYCLIA [id number] [place] [address] [place] Platelets (Bld) [#/Vol] 199 10*3/uL Normal 150-400 [facility] Comment on above: Order Comment: Speci men Type: BLOOD SPECIMENOrdering Facility: [facility] Address: [address] [place] [address] Performed By: #### 5 8410-2 ####[facility] LABORATORYCLIA [id number] [place] [address] [place] RBC (Bld) [#/Vol] 3.99 10*6/uL Normal 3.90-5.20 [facility] Comment on above: Order Comment: Speci men Type: BLOOD SPECIMENOrdering Facility: [facility] Address: [address] [place] [address] Performed By: #### 5 8410-2 ####[facility] LABORATORYCLIA [id number] [place] [address] [place] WBC (Bld) [#/Vol] 4.31 10*3/uL Normal 3.70-11.00 [facility] Comment on above: Order Comment: Speci men Type: BLOOD SPECIMENOrdering Facility: [facility] Address: [address] [place] [address] Performed By: #### 5 8410-2 ####[facility] LABORATORYCLIA [id number] [place] [address] [place] ALLIED HEALTHon 09-17-2022 ALLIED HEALTH Normal [facility] ANES POSTPROC EVALon 023 ANES POSTPROC EVAL Normal [facility] ANES PRE-OPon 09-17-2022 ANES PRE-OP Normal [facility] Basic metabolic 2000 panelon 09-17-2022 Anion gap [Moles/Vol] 8 mmol/L Low 9-18 [facility] Comment on above: Order Comment: Speci men Type: BLOOD SPECIMENOrdering Facility: [facility] Address: [address] [place] [address] Performed By: #### 2 4321-2 ####[facility] LABORATORYCLIA [id number] [place] [id number] [place] Calcium [Mass/Vol] 8.6 mg/dL Normal 8.5-10.2 [facility] Comment on above: Order Comment: Speci men Type: BLOOD SPECIMENOrdering Facility: [facility] Address: [address] [address] Performed By: #### 2 4321-2 ####[facility] LABORATORYCLIA [id number] [place] [address] [place] Chloride [Moles/Vol] 106 mmol/L High 97-105 [facility] Comment on above: Order Comment: Speci men Type: BLOOD SPECIMENOrdering Facility: [facility] Address: [address] [address] Performed By: #### 2 4321-2 ####[facility] LABORATORYCLIA [id number] [place] [address] [place] CO2 [Moles/Vol] 26 mmol/L Normal 22-30 [facility] Comment on above: Order Comment: Speci men Type: BLOOD SPECIMENOrdering Facility: [facility] Address: [address] [address] Performed By: #### 2 4321-2 ####[facility] LABORATORYCLIA [id number] [place] [address] [place] Creatinine [Mass/Vol] 0.61 mg/dL Normal 0.58-0.96 [facility] Comment on above: Order Comment: Speci men Type: BLOOD SPECIMENOrdering Facility: [facility] Address: [address] [address] Performed By: #### 2 4321-2 ####[facility] LABORATORYCLIA [id number] [place] [address] [place] ESTIMATED GLOMERULAR FILTRATION RATE 113 mL/min/1.73m??? Normal >=60 [facility] Comment on above: Order Comment: [place] fields Type: BLOOD SPECIMENOrdering Facility: [facility] Address: [address] [place] [address] Result Comment: Randy mated Glomerular Filtration Rate (eGFR) is calculated using the 2020 CKD-EPI creatinine equation. This equation utilizes serum creatinine, sex, and age as parameters. The creatinine assay has traceable calibration to isotope dilution-mass spectrometry. Refer to KDIGO guidelines for clinical interpretation. In patients with unstable renal function, e.g. those with acute kidney injury, the eGFR may not accurately reflect actual GFR. Performed By: #### 2 4321-2 ####[facility] LABORATORYCLIA [id number] [place] [address] [place] Glucose [Mass/Vol] 88 mg/dL Normal 74-99 [facility] Comment on above: Order Comment: [place] fields Type: BLOOD SPECIMENOrdering Facility: [facility] Address: [address] [place] [address] Result Comment: The [place] [employer] (ADA) provides guidance for cutoff values for fasting glucose and random glucose. The ADA defines fasting as no caloric intake for at least 8 hours. Fasting plasma glucose results between 100 to 125 mg/dL indicate increased risk for diabetes (prediabetes).Fasting plasma glucose results greater than or equal to 126 mg/dL meet the criteria for diagnosis of diabetes. In the absence of unequivocal hyperglycemia, results should be confirmed by repeat testing. In a patient with classic symptoms of hyperglycemia or hyperglycemic crisis, random plasma glucose results greater than or equal to 200 mg/dL meet the criteria for diagnosis of diabetes.Reference: Standards of Medical Care in Diabetes 2016, [place] [employer]. Diabetes Care. 2016.39(Suppl 1). Performed By: #### 2 4321-2 ####[facility] LABORATORYCLIA [id number] [place] [address] [place] Potassium [Moles/Vol] 4.1 mmol/L Normal 3.7-5.1 [facility] Comment on above: Order Comment: [place] fields Type: BLOOD SPECIMENOrdering Facility: [facility] Address: [address] [address] Performed By: #### 2 4321-2 ####[facility] LABORATORYCLIA [id number] [place] [address] [facility] Sodium [Moles/Vol] 140 mmol/L Normal 136-144 [facility] Comment on above: Order Comment: Speci men Type: BLOOD SPECIMENOrdering Facility: [facility] Address: [address] [address] Performed By: #### 2 4321-2 ####[facility] LABORATORYCLIA [id number] [address] [place] [facility] Urea nitrogen [Mass/Vol] 6 mg/dL Low 7-21 [facility] Comment on above: Order Comment: Speci men Type: BLOOD SPECIMENOrdering Facility: [facility] Address: [address] [address] Performed By: #### 2 4321-2 ####[facility] LABORATORYCLIA [id number] [address] OF [facility] CBC panel Auto (Bld)on 09-17 Erythrocyte distribution width (RBC) [Ratio] 15.0 % Normal 11.5-15.0 [facility] Comment on above: Order Comment: Speci men Type: BLOOD SPECIMENOrdering Facility: [facility] Address: [address] [address] Performed By: #### 5 8410-2 ####[facility] LABORATORYCLIA [id number] [address] Hematocrit (Bld) [Volume fraction] 34.2 % Low 36.0-46.0 [facility] Comment on above: Order Comment: Speci men Type: BLOOD SPECIMENOrdering Facility: [facility] Address: [address] [place] [address] Performed By: #### 5 8410-2 ####[facility] LABORATORYCLIA [id number] [address] [place] Hemoglobin (Bld) [Mass/Vol] 10.9 g/dL Low 11.5-15.5 [facility] Comment on above: Order Comment: Speci men Type: BLOOD SPECIMENOrdering Facility: [facility] Address: [address] [address] Performed By: #### 5 8410-2 ####[facility] LABORATORYCLIA [id number] [address] MCH (RBC) [Entitic mass] 28.4 pg Normal 26.0-34.0 [facility] Comment on above: Order Comment: Speci men Type: BLOOD SPECIMENOrdering Facility: [facility] Address: [address] [address] Performed By: #### 5 8410-2 ####[facility] LABORATORYCLIA [id number] [address] [place] [facility] MCHC (RBC) [Mass/Vol] 31.9 g/dL Normal 30.5-36.0 [facility] Comment on above: Order Comment: Speci men Type: BLOOD SPECIMENOrdering Facility: [facility] Address: [address] [address] Performed By: #### 5 8410-2 ####[facility] LABORATORYCLIA [id number] [address] MCV (RBC) [Entitic vol] 89.1 fL Normal 80.0-100.0 [facility] Comment on above: Order Comment: Speci men Type: BLOOD SPECIMENOrdering Facility: [facility] Address: [address] [address] Performed By: #### 5 8410-2 ####[facility] LABORATORYCLIA [id number] [address] [place] Nucleated RBC (Bld) [#/Vol] 10*3/uL Normal <0.01 [facility] Comment on above: Order Comment: Speci men Type: BLOOD SPECIMENOrdering Facility: [facility] Address: [address] [address] Performed By: #### 5 8410-2 ####[facility] LABORATORYCLIA [id number] [place] [address] [place] Platelet mean volume (Bld) [Entitic vol] 10.3 fL Normal 9.0-12.7 [facility] Comment on above: Order Comment: Speci men Type: BLOOD SPECIMENOrdering Facility: [facility] Address: [address] [place] [address] Performed By: #### 5 8410-2 ####[facility] LABORATORYCLIA [id number] [place] [address] [place] Platelets (Bld) [#/Vol] 196 10*3/uL Normal 150-400 [facility] Comment on above: Order Comment: Speci men Type: BLOOD SPECIMENOrdering Facility: [facility] Address: [address] [place] [address] Performed By: #### 5 8410-2 ####[facility] LABORATORYCLIA [id number] [place] [address] [place] RBC (Bld) [#/Vol] 3.84 10*6/uL Low 3.90-5.20 [facility] Comment on above: Order Comment: Speci men Type: BLOOD SPECIMENOrdering Facility: [facility] Address: [address] [place] [address] Performed By: #### 5 8410-2 ####[facility] LABORATORYCLIA [id number] [place] [address] [place] WBC (Bld) [#/Vol] 4.29 10*3/uL Normal 3.70-11.00 [facility] Comment on above: Order Comment: Speci men Type: BLOOD SPECIMENOrdering Facility: [facility] Address: [address] [place] [address] Performed By: #### 5 8410-2 ####[facility] LABORATORYCLIA [id number] [place] [address] [place] NURSING PROGon 09-17-2022 NURSING PROG Normal [facility] NURSING PROG Normal [facility] NURSING PROG Normal [facility] NURSING PROG Normal [facility] NUTRITIONon 09-17-2022 NUTRITION Normal [facility] Upper GI endoscopyon 023 Upper GI endoscopy Normal [facility] ALLIED HEALTHon 09-16-2022 ALLIED HEALTH Normal [facility] CT ABD/PEL W IVCONon 023 CT ABD/PEL W IVCON Invalid Interpretation Code [facility] ED NOTEon 09-16-2022 ED NOTE Normal [facility] ED PROV NOTEon 09-16-2022 ED PROV NOTE Normal [facility] NURSING PROGon 09-16-2022 NURSING PROG Normal [facility] Urinalysis complete panel (U )on 09-16-2022 Bacteria LM.HPF (Urine sed) [#/Area] Rare Abnormal None Seen [facility] Comment on above: Order Comment: Speci men Type: URINE SPECIMENOrdering Facility: [facility] Address: [address] [place] [address] Performed By: #### 2 4356-8 ####[facility] LABORATORYCLIA [id number] [place] [address] [place] Bilirubin Ql (U) Negative Normal Negative [facility] Comment on above: Order Comment: Speci men Type: URINE SPECIMENOrdering Facility: [facility] Address: [address] [place] [address] Performed By: #### 2 4356-8 ####[facility] LABORATORYCLIA [id number] [place] [address] [place] CALCIUM OXALATE CRYSTALS (UA) Moderate Abnormal None Seen [facility] Comment on above: Order Comment: Speci men Type: URINE SPECIMENOrdering Facility: [facility] Address: [address] [address] Performed By: #### 2 4356-8 ####[facility] LABORATORYCLIA [id number] [place] [address] [place] Clarity (Unsp spec) Clear Normal Clear [facility] Comment on above: Order Comment: Speci men Type: URINE SPECIMENOrdering Facility: [facility] Address: [address] [address] Performed By: #### 2 4356-8 ####[facility] LABORATORYCLIA [id number] [address] OF [facility] Color (U) Light Yellow Normal Yellow [facility] Comment on above: Order Comment: Speci men Type: URINE SPECIMENOrdering Facility: [facility] Address: [address] [place] [address] Performed By: #### 2 4356-8 ####[facility] LABORATORYCLIA [id number] [address] [place] Epithelial cells LM.HPF (Urine sed) [#/Area] Few Normal [facility] Comment on above: Order Comment: Speci men Type: URINE SPECIMENOrdering Facility: [facility] Address: [address] [place] [address] Performed By: #### 2 6-8 ####[facility] LABORATORYCLIA [id number] [address] [place] [facility] Glucose Test strip (U) [Mass/Vol] Negative Normal Trace, Negative [facility] Comment on above: Order Comment: Speci men Type: URINE SPECIMENOrdering Facility: [facility] Address: [address] [place] [address] Performed By: #### 2 6-8 ####[facility] LABORATORYCLIA [id number] [place] [address] [place] [facility] Hemoglobin Ql (U) Negative Normal Negative, Trace [facility] Comment on above: Order Comment: Speci men Type: URINE SPECIMENOrdering Facility: [facility] Address: [address] [place] [address] Performed By: #### 2 6-8 ####[facility] LABORATORYCLIA [id number] [place] [address] [place] Ketones Ql (U) Negative Normal Negative, Trace [facility] Comment on above: Order Comment: Speci men Type: URINE SPECIMENOrdering Facility: [facility] Address: [address] [place] [address] Performed By: #### 2 4356-8 ####[facility] LABORATORYCLIA [id number] [address] Leukocyte esterase Test strip Ql (U) Negative Normal Negative, 25 Danielle/mL [facility] Comment on above: Order Comment: Speci men Type: URINE SPECIMENOrdering Facility: [facility] Address: [address] [place] [address] Performed By: #### 2 4356-8 ####[facility] LABORATORYCLIA [id number] [place] [address] [place] Nitrite Ql (U) Negative Normal Negative [facility] Comment on above: Order Comment: Speci men Type: URINE SPECIMENOrdering Facility: [facility] Address: [address] [place] [address] Performed By: #### 2 4356-8 ####[facility] LABORATORYCLIA [id number] [place] [address] [place] pH (U) 6.5 [pH] Normal 5.0-8.0 [facility] Comment on above: Order Comment: Speci men Type: URINE SPECIMENOrdering Facility: [facility] Address: [address] [place] [address] Performed By: #### 2 4356-8 ####[facility] LABORATORYCLIA [id number] [place] [address] [place] Protein (U) [Mass/Vol] 1+ Abnormal Trace, Negative [facility] Comment on above: Order Comment: Speci men Type: URINE SPECIMENOrdering Facility: [facility] Address: [address] [place] [address] Performed By: #### 2 4356-8 ####[facility] LABORATORYCLIA [id number] [place] [address] [place] RBC LM.HPF (Urine sed) [#/Area] 6-10 /HPF Abnormal 0-3 /HPF [facility] Comment on above: Order Comment: Speci men Type: URINE SPECIMENOrdering Facility: [facility] Address: [address] [place] [address] Performed By: #### 2 4356-8 ####[facility] LABORATORYCLIA [id number] [place] [address] [place] Specific gravity (U) [Rel density] >1.050 High 1.005-1.03 0 [facility] Comment on above: Order Comment: Speci men Type: URINE SPECIMENOrdering Facility: [facility] Address: [address] [place] [address] Performed By: #### 2 4356-8 ####[facility] LABORATORYCLIA [id number] [address] Urobilinogen Ql (U) Negative Normal Negative [facility] Comment on above: Order Comment: Speci men Type: URINE SPECIMENOrdering Facility: [facility] Address: [address] [place] [address] Performed By: #### 2 4356-8 ####[facility] LABORATORYCLIA [id number] [address] [place] [facility] WBC LM.HPF (Urine sed) [#/Area] 0-5 /HPF Normal 0-5 /HPF [facility] Comment on above: Order Comment: Speci men Type: URINE SPECIMENOrdering Facility: [facility] Address: [address] [place] [address] Performed By: #### 2 4356-8 ####[facility] LABORATORYCLIA [id number] [place] [address] [place] ALLIED HEALTHon 09-15-2022 ALLIED HEALTH Normal [facility] BETA HCG, QUANTITATIVE FOR E Don 09-15-2022 HCG.beta subunit Qn 2.2 m[IU]/mL Normal <5.0 [facility] Comment on above: Order Comment: Speci men Type: BLOOD SPECIMENOrdering Facility: [facility] Address: [address] [place] [address] Result Comment: Nega tive Performed By: #### H CGED ####[facility] LABORATORYCLIA [id number] [address] [place] CBC W Auto Differential pane l (Bld)on 09-15-2022 Basophils (Bld) [#/Vol] 0.07 10*3/uL Normal <0.11 [facility] Comment on above: Order Comment: Speci men Type: BLOOD SPECIMENOrdering Facility: [facility] Address: [address] [address] Performed By: #### 5 7021-8 ####[facility] LABORATORYCLIA [id number] [address] [place] [facility] Basophils/100 WBC (Bld) 1.1 % Normal [facility] Comment on above: Order Comment: Speci men Type: BLOOD SPECIMENOrdering Facility: [facility] Address: [address] [place] [address] Performed By: #### 5 7021-8 ####[facility] LABORATORYCLIA [id number] [address] Differential cell count method Nom (Bld) Auto Normal [facility] Comment on above: Order Comment: Speci men Type: BLOOD SPECIMENOrdering Facility: [facility] Address: [address] [place] [address] Performed By: #### 5 7021-8 ####[facility] LABORATORYCLIA [id number] [place] [address] [place] Eosinophils (Bld) [#/Vol] 0.12 10*3/uL Normal <0.46 [facility] Comment on above: Order Comment: Speci men Type: BLOOD SPECIMENOrdering Facility: [facility] Address: [address] [place] [address] Performed By: #### 5 7021-8 ####[facility] LABORATORYCLIA [id number] [address] [place] [facility] Eosinophils/100 WBC (Bld) 1.9 % Normal [facility] Comment on above: Order Comment: Speci men Type: BLOOD SPECIMENOrdering Facility: [facility] Address: [address] [place] [address] Performed By: #### 5 7021-8 ####[facility] LABORATORYCLIA [id number] [address] [place] Erythrocyte distribution width (RBC) [Ratio] 15.2 % High 11.5-15.0 [facility] Comment on above: Order Comment: Speci men Type: BLOOD SPECIMENOrdering Facility: [facility] Address: [address] [place] [address] Performed By: #### 5 7021-8 ####[facility] LABORATORYCLIA [id number] [place] [address] [place] Hematocrit (Bld) [Volume fraction] 37.2 % Normal 36.0-46.0 [facility] Comment on above: Order Comment: Speci men Type: BLOOD SPECIMENOrdering Facility: [facility] Address: [address] [address] Performed By: #### 5 7021-8 ####[facility] LABORATORYCLIA [id number] [place] [address] [place] Hemoglobin (Bld) [Mass/Vol] 12.3 g/dL Normal 11.5-15.5 [facility] Comment on above: Order Comment: Speci men Type: BLOOD SPECIMENOrdering Facility: [facility] Address: [address] [place] [address] Performed By: #### 5 7021-8 ####[facility] LABORATORYCLIA [id number] [place] [address] [place] Immature granulocytes (Bld) [#/Vol] 10*3/uL Normal <0.10 [facility] Comment on above: Order Comment: Speci men Type: BLOOD SPECIMENOrdering Facility: [facility] Address: [address] [place] [address] Performed By: #### 5 7021-8 ####[facility] LABORATORYCLIA [id number] [place] [address] [place] Immature granulocytes/100 WBC (Bld) 0.2 % Normal [facility] Comment on above: Order Comment: Speci men Type: BLOOD SPECIMENOrdering Facility: [facility] Address: [address] [place] [address] Performed By: #### 5 7021-8 ####[facility] LABORATORYCLIA [id number] [place] [address] [place] Lymphocytes (Bld) [#/Vol] 2.60 10*3/uL Normal 1.00-4.00 [facility] Comment on above: Order Comment: Speci men Type: BLOOD SPECIMENOrdering Facility: [facility] Address: [address] [address] Performed By: #### 5 7021-8 ####[facility] LABORATORYCLIA [id number] [address] [place] [facility] Lymphocytes/100 WBC (Bld) 41.0 % Normal [facility] Comment on above: Order Comment: Speci men Type: BLOOD SPECIMENOrdering Facility: [facility] Address: [address] [place] [address] Performed By: #### 5 7021-8 ####[facility] LABORATORYCLIA [id number] [place] [address] [place] MCH (RBC) [Entitic mass] 29.4 pg Normal 26.0-34.0 [facility] Comment on above: Order Comment: Speci men Type: BLOOD SPECIMENOrdering Facility: [facility] Address: [address] [address] Performed By: #### 5 7021-8 ####[facility] LABORATORYCLIA [id number] [address] [place] MCHC (RBC) [Mass/Vol] 33.1 g/dL Normal 30.5-36.0 [facility] Comment on above: Order Comment: Speci men Type: BLOOD SPECIMENOrdering Facility: [facility] Address: [address] [place] [address] Performed By: #### 5 7021-8 ####[facility] LABORATORYCLIA [id number] [place] [address] [place] MCV (RBC) [Entitic vol] 88.8 fL Normal 80.0-100.0 [facility] Comment on above: Order Comment: Speci men Type: BLOOD SPECIMENOrdering Facility: [facility] Address: [address] [place] [address] Performed By: #### 5 7021-8 ####JUANPABLO LABORATORYCLIA [id number] [place] [address] [place] Monocytes (Bld) [#/Vol] 0.48 10*3/uL Normal <0.87 [facility] Comment on above: Order Comment: Speci men Type: BLOOD SPECIMENOrdering Facility: [facility] Address: [address] [address] Performed By: #### 5 7021-8 ####JUANPABLO LABORATORYCLIA [id number] [place] [address] [place] Monocytes/100 WBC (Bld) 7.6 % Normal [facility] Comment on above: Order Comment: Speci men Type: BLOOD SPECIMENOrdering Facility: [facility] Address: [address] [address] Performed By: #### 5 7021-8 ####JUANPABLO LABORATORYCLIA [id number] [place] [address] [place] Neutrophils (Bld) [#/Vol] 3.06 10*3/uL Normal 1.45-7.50 [facility] Comment on above: Order Comment: Speci men Type: BLOOD SPECIMENOrdering Facility: [facility] Address: [address] [address] Performed By: #### 5 7021-8 ####JUANPABLO LABORATORYCLIA [id number] [place] [address] [place] Neutrophils/100 WBC (Bld) 48.2 % Normal [facility] Comment on above: Order Comment: Speci men Type: BLOOD SPECIMENOrdering Facility: [facility] Address: [address] [address] Performed By: #### 5 7021-8 ####JUANPABLO LABORATORYCLIA [id number] [place] [address] [place] Nucleated RBC (Bld) [#/Vol] 10*3/uL Normal <0.01 [facility] Comment on above: Order Comment: Speci men Type: BLOOD SPECIMENOrdering Facility: [facility] Address: [address] [address] Performed By: #### 5 7021-8 ####[facility] LABORATORYCLIA [id number] [place] [address] [place] Nucleated RBC/100 WBC (Bld) [Ratio] 0.0 /100 WBC Normal [facility] Comment on above: Order Comment: Speci men Type: BLOOD SPECIMENOrdering Facility: [facility] Address: [address] [place] [address] Performed By: #### 5 7021-8 ####TUPELO LABORATORYCLIA [id number] [place] [address] [place] Platelet mean volume (Bld) [Entitic vol] 10.4 fL Normal 9.0-12.7 [facility] Comment on above: Order Comment: Speci men Type: BLOOD SPECIMENOrdering Facility: [facility] Address: [address] [place] [address] Performed By: #### 5 7021-8 ####TUPELO LABORATORYCLIA [id number] [place] [address] [place] Platelets (Bld) [#/Vol] 261 10*3/uL Normal 150-400 [facility] Comment on above: Order Comment: Speci men Type: BLOOD SPECIMENOrdering Facility: [facility] Address: [address] [place] [address] Performed By: #### 5 7021-8 ####TUPELO LABORATORYCLIA [id number] [place] [address] [place] RBC (Bld) [#/Vol] 4.19 10*6/uL Normal 3.90-5.20 [facility] Comment on above: Order Comment: Speci men Type: BLOOD SPECIMENOrdering Facility: [facility] Address: [address] [place] [address] Performed By: #### 5 7021-8 ####TUPELO LABORATORYCLIA [id number] [place] [address] [place] WBC (Bld) [#/Vol] 6.34 10*3/uL Normal 3.70-11.00 [facility] Comment on above: Order Comment: Speci men Type: BLOOD SPECIMENOrdering Facility: [facility] Address: [address] [address] Performed By: #### 5 7021-8 ####[facility] LABORATORYCLIA [id number] [address] CK SerPl-cCncon 09-15-2022 CK [Catalytic activity/Vol] 37 U/L Low 42-196 [facility] Comment on above: Order Comment: Speci men Type: BLOOD SPECIMENOrdering Facility: [facility] Address: [address] [address] Performed By: #### 2 157-6, 29856-2, 3040-3, 23443-1, SALLY ####[facility] LABORATORYCLIA [id number] [address] OF [facility] Comprehensive metabolic 2000 panelon 09-15-2022 Albumin [Mass/Vol] 4.0 g/dL Normal 3.9-4.9 [facility] Comment on above: Order Comment: Speci men Type: BLOOD SPECIMENOrdering Facility: [facility] Address: [address] [address] Performed By: #### 2 157-6, 44677-7, 3040-3, 64747-7, SALLY ####[facility] LABORATORYCLIA [id number] [address] STATES OF [facility] ALP [Catalytic activity/Vol] 87 U/L Normal 34-123 [facility] Comment on above: Order Comment: Speci men Type: BLOOD SPECIMENOrdering Facility: [facility] Address: [address] [address] Performed By: #### 2 157-6, 18324-0, 3040-3, 50413-8, SALLY ####[facility] LABORATORYCLIA [id number] [address] ALT [Catalytic activity/Vol] 20 U/L Normal 7-38 [facility] Comment on above: Order Comment: Speci men Type: BLOOD SPECIMENOrdering Facility: [facility] Address: [address] [address] Performed By: #### 2 157-6, 55883-7, 3040-3, 80294-8, SALLY ####JUANPABLO LABORATORYCLIA [id number] [address] [id number] [place] Anion gap [Moles/Vol] 10 mmol/L Normal 9-18 [facility] Comment on above: Order Comment: Speci men Type: BLOOD SPECIMENOrdering Facility: [facility] Address: [address] [address] Performed By: #### 2 157-6, 03906-4, 3040-3, 64212-5, SALLY ####[facility] LABORATORYCLIA [id number] [address] [place] [address] [place] AST [Catalytic activity/Vol] 23 U/L Normal 13-35 [facility] Comment on above: Order Comment: Speci men Type: BLOOD SPECIMENOrdering Facility: [facility] Address: [address] [address] Performed By: #### 2 157-6, 21674-7, 3040-3, 33942-6, SALLY ####[facility] LABORATORYCLIA [id number] [address] [place] [address] [place] Bilirubin [Mass/Vol] 0.2 mg/dL Normal 0.2-1.3 [facility] Comment on above: Order Comment: Speci men Type: BLOOD SPECIMENOrdering Facility: [facility] Address: [address] Performed By: #### 2 157-6, 29771-8, 3040-3, 39563-6, SALLY ####[facility] LABORATORYCLIA [id number] [address] [place] [address] [place] Calcium [Mass/Vol] 9.1 mg/dL Normal 8.5-10.2 [facility] Comment on above: Order Comment: Speci men Type: BLOOD SPECIMENOrdering Facility: [facility] Address: [address] [address] Performed By: #### 2 157-6, 94902-7, 3040-3, 19802-4, SALLY ####TUPELO LABORATORYCLIA [id number] [place] [address] [place] Chloride [Moles/Vol] 104 mmol/L Normal 97-105 [facility] Comment on above: Order Comment: Speci men Type: BLOOD SPECIMENOrdering Facility: [facility] Address: [address] [place] [address] Performed By: #### 2 157-6, 47557-2, 3040-3, 95059-3, SALLY ####TUPELO LABORATORYCLIA [id number] [address] [address] [place] CO2 [Moles/Vol] 26 mmol/L Normal 22-30 [facility] Comment on above: Order Comment: Speci men Type: BLOOD SPECIMENOrdering Facility: [facility] Address: [address] [place] [address] Performed By: #### 2 157-6, 10408-1, 3040-3, 56272-7, SALLY ####TUPELO LABORATORYCLIA [id number] [address] [address] [place] Creatinine [Mass/Vol] 0.53 mg/dL Low 0.58-0.96 [facility] Comment on above: Order Comment: Speci men Type: BLOOD SPECIMENOrdering Facility: [facility] Address: [address] [place] [address] Performed By: #### 2 157-6, 75814-1, 3040-3, 96369-8, SALLY ####TUPELO LABORATORYCLIA [id number] [address] [address] [place] ESTIMATED GLOMERULAR FILTRATION RATE 116 mL/min/1.73m??? Normal >=60 [facility] Comment on above: Order Comment: Speci men Type: BLOOD SPECIMENOrdering Facility: [facility] Address: [address] [place] [address] Result Comment: Randy mated Glomerular Filtration Rate (eGFR) is calculated using the 2020 CKD-EPI creatinine equation. This equation utilizes serum creatinine, sex, and age as parameters. The creatinine assay has traceable calibration to isotope dilution-mass spectrometry. Refer to KDIGO guidelines for clinical interpretation. In patients with unstable renal function, e.g. those with acute kidney injury, the eGFR may not accurately reflect actual GFR. Performed By: #### 2 157-6, 66912-4, 3040-3, 60763-3, SALLY ####JUANPABLO LABORATORYCLIA [id number] [place] [address] [place] Glucose [Mass/Vol] 109 mg/dL High 74-99 [facility] Comment on above: Order Comment: [place] Type: BLOOD SPECIMENOrdering Facility: [facility] Address: [address] [place] [address] Result Comment: The [place] [employer] (ADA) provides guidance for cutoff values for fasting glucose and random glucose. The ADA defines fasting as no caloric intake for at least 8 hours. Fasting plasma glucose results between 100 to 125 mg/dL indicate increased risk for diabetes (prediabetes).Fasting plasma glucose results greater than or equal to 126 mg/dL meet the criteria for diagnosis of diabetes. In the absence of unequivocal hyperglycemia, results should be confirmed by repeat testing. In a patient with classic symptoms of hyperglycemia or hyperglycemic crisis, random plasma glucose results greater than or equal to 200 mg/dL meet the criteria for diagnosis of diabetes.Reference: Standards of Medical Care in Diabetes 2016, [place] [employer]. Diabetes Care. 2016.39(Suppl 1). Performed By: #### 2 157-6, 42778-9, 0-3, , SALLY ####JUANPABLO LABORATORYCLIA [id number] [place] [address] [place] Potassium [Moles/Vol] 3.8 mmol/L Normal 3.7-5.1 [facility] Comment on above: Order Comment: [place] Type: BLOOD SPECIMENOrdering Facility: [facility] Address: [address] [place] [address] Performed By: #### 2 157-6, 92959-2, 3040-3, 08632-7, SALLY ####[facility] LABORATORYCLIA [id number] [place] [address] [place] Protein [Mass/Vol] 6.5 g/dL Normal 6.3-8.0 [facility] Comment on above: Order Comment: Speci men Type: BLOOD SPECIMENOrdering Facility: [facility] Address: [address] [place], [place] [address] Performed By: #### 2 157-6, 07089-5, 3040-3, 54058-8, SALLY ####TUPELO LABORATORYCLIA [id number] [place] [address] [place] Sodium [Moles/Vol] 140 mmol/L Normal 136-144 [facility] Comment on above: Order Comment: Speci men Type: BLOOD SPECIMENOrdering Facility: [facility] Address: [address] [place] [address] Performed By: #### 2 157-6, 89273-8, 3040-3, , SALLY ####TUPELO LABORATORYCLIA [id number] [place] [address] [place] Urea nitrogen [Mass/Vol] 9 mg/dL Normal 7-21 [facility] Comment on above: Order Comment: Speci men Type: BLOOD SPECIMENOrdering Facility: [facility] Address: [address] [place] [address] Performed By: #### 2 157-6, 51898-3, 0-3, , SALLY ####TUPELO LABORATORYCLIA [id number] [place] [address] [place] HISTORY PHYSICALon 3 HISTORY PHYSICAL Normal [facility] Lipase SerPl-cCncon 09-15-19 23 Lipase [Catalytic activity/Vol] 10 U/L Low 16-61 [facility] Comment on above: Order Comment: Speci men Type: BLOOD SPECIMENOrdering Facility: [facility] Address: [address] [place] [address] Performed By: #### 2 157-6, 46838-0, 3040-3, 44546-4, SALLY ####TUPELO LABORATORYCLIA [id number] [address] [place] [address] [place] Magnesium SerPl-mCncon 09-15 Magnesium [Mass/Vol] 2.0 mg/dL Normal 1.7-2.3 [facility] Comment on above: Order Comment: Speci men Type: BLOOD SPECIMENOrdering Facility: [facility] Address: [address] [address] Performed By: #### 2 157-6, 58121-2, 3040-3, 40352-0, SALLY ####TUPELO LABORATORYCLIA [id number] [place] [address] [place] SARS-CoV-2 RNA Resp Ql MEAGAN+p robeon 09-15-2022 SARS-CoV-2 (COVID-19) RNA MEAGAN+probe Ql (Resp) COVID 19 RESULT: SARS-CoV-2 (Agent of COVID-19) Not Detected by RT-PCR or equivalent method. This test has been authorized by FDA under an Emergency Use Authorization (EUA). Normal [facility] Comment on above: Performed By: #### 9 4500-6 ####TUPELO LABORATORYCLIA [id number] [address] [place] TROPONIN Ton 09-15-2022 Troponin T.cardiac [Mass/Vol] ug/L Normal 0.000-0.02 9 [facility] Comment on above: Order Comment: Speci men Type: BLOOD SPECIMENOrdering Facility: [facility] Address: [address] [address] Performed By: #### 2 157-6, 29184-8, 3040-3, 86223-8, SALLY ####TU[facility] LABORATORYCLIA [id number] [place] [address] [place] XR CHEST 1V FRONTAL PORTon 0 09-15-2022 XR CHEST 1V FRONTAL PORT Normal [facility] CBC W Auto Differential pane l (Bld)on 09-12-2022 Basophils (Bld) [#/Vol] 0.06 10*3/uL <0.11 k/uL [facility] Basophils/100 WBC (Bld) 1.1 % [facility] Differential cell count method Nom (Bld) Auto [facility] Eosinophils (Bld) [#/Vol] 0.14 10*3/uL <0.46 k/uL [facility] Eosinophils/100 WBC (Bld) 2.6 % [facility] Erythrocyte distribution width (RBC) [Ratio] 15.3 % High 11.5 - 15.0 % [facility] Hematocrit (Bld) [Volume fraction] 38.3 % 36.0 - 46.0 % [facility] Hemoglobin (Bld) [Mass/Vol] 12.3 g/dL 11.5 - 15.5 g/dL [facility] Immature granulocytes (Bld) [#/Vol] <0.10 k/uL [facility] Immature granulocytes/100 WBC (Bld) 0.0 % [facility] Lymphocytes (Bld) [#/Vol] 2.15 10*3/uL 1.00 - 4.00 k/uL [facility] Lymphocytes/100 WBC (Bld) 40.6 % [facility] MCH (RBC) [Entitic mass] 28.9 pg 26.0 - 34.0 pg [facility] MCHC (RBC) [Mass/Vol] 32.1 g/dL 30.5 - 36.0 g/dL [facility] MCV (RBC) [Entitic vol] 89.9 fL 80.0 - 100.0 fL [facility] Monocytes (Bld) [#/Vol] 0.59 10*3/uL <0.87 k/uL [facility] Monocytes/100 WBC (Bld) 11.2 % [facility] Neutrophils (Bld) [#/Vol] 2.35 10*3/uL 1.45 - 7.50 k/uL [facility] Neutrophils/100 WBC (Bld) 44.5 % [facility] Nucleated RBC (Bld) [#/Vol] <0.01 k/uL [facility] Nucleated RBC/100 WBC (Bld) [Ratio] 0.0 /100 WBC [facility] Platelet mean volume (Bld) [Entitic vol] 10.0 fL 9.0 - 12.7 fL [facility] Platelets (Bld) [#/Vol] 257 10*3/uL 150 - 400 k/uL [facility] RBC (Bld) [#/Vol] 4.26 10*6/uL 3.90 - 5.20 m/uL [facility] WBC (Bld) [#/Vol] 5.29 10*3/uL 3.70 - 11.00 k/uL [facility] CBC AUTO DIFFon 09-09-2022 BASO # 0.1 103/ul Normal 0.0-0.1 [facility] Comment on above: Performed By: #### C BC #### [facility] [address] [address] [address] Dolly Kelly Basophils/100 WBC (Bld) 1.0 % Normal 0.2-2.0 [facility] Comment on above: Performed By: #### C BC #### [facility] [address] [place] [address] Dr. Dolly Kelly EO # 0.1 103/ul Normal 0.0-0.7 [facility] Comment on above: Performed By: #### C BC #### [facility] [address] [place] [address] Dr. Dolly Kelly Eosinophils/100 WBC (Bld) 2.2 % Normal 0.9-7.0 [facility] Comment on above: Performed By: #### C BC #### [facility] [address] [place] [address] Dr. Dolly Kelly Erythrocyte distribution width (RBC) [Ratio] 15.3 % Critically high 11.0-15.0 [facility] Comment on above: Performed By: #### C BC #### [facility] [address] [place] [address] Dr. Dolly Kelly Hematocrit (Bld) [Volume fraction] 37.8 % Normal 36.0-48.0 [facility] Comment on above: Performed By: #### C BC #### [facility] [address] [place] [address] Dr. Dolly Kelly Hemoglobin (Bld) [Mass/Vol] 12.2 g/dL Normal 12.0-16.0 [facility] Comment on above: Performed By: #### C BC #### [facility] [address] [place] [address] Dr. Dolly Kelly IG # 0.01 10e3/ul Normal 0.00-0.03 [facility] Comment on above: Performed By: #### C BC #### [facility] [address] [place] [address] Dr. Dolly Kelly IG % 0.2 % Normal 0.0-0.5 [facility] Comment on above: Performed By: #### C BC #### [facility] [address] [place] [address] Dr. Dolly Kelly LYMPH # 2.0 103/ul Normal 1.2-3.8 [facility] Comment on above: Performed By: #### C BC #### [facility] [address] [place] [address] Dr. Dolly Kelly Lymphocytes/100 WBC (Bld) 38.6 % Normal 20.5-60.0 [facility] Comment on above: Performed By: #### C BC #### [facility] [address] [place] [address] Dr. Dolly Kelly MANUAL DIFF REQ NO Normal [facility] Comment on above: Performed By: #### C BC #### [facility] [address] [place] [address] Dr. Dolly Kelly MCH (RBC) [Entitic mass] 28.6 pg Normal 26.7-34.0 [facility] Comment on above: Performed By: #### C BC #### [facility] [address] [place] [address] Dr. Dolly Kelly MCHC (RBC) [Mass/Vol] 32.3 g/dL Normal 29.9-35.2 [facility] Comment on above: Performed By: #### C BC #### [facility] [address] [place] [address] Dr. Dolly Kelly MCV (RBC) [Entitic vol] 88.5 fL Normal 81.0-99.0 [facility] Comment on above: Performed By: #### C BC #### [facility] [address] [place] [address] Dr. Dolly Kelly MONO # 0.4 103/ul Normal 0.3-0.8 [facility] Comment on above: Performed By: #### C BC #### [facility] [address] [place] [address] Dr. Dolly Kelly Monocytes/100 WBC (Bld) 8.6 % Normal 1.7-12.0 [facility] Comment on above: Performed By: #### C BC #### [facility] [address] [place] [address] Dr. Dolly Kelly NEUT # 2.5 103/ul Normal 1.4-6.5 [facility] Comment on above: Performed By: #### C BC #### [facility] [address] [place] [address] Dr. Dolly Kelly Neutrophils/100 WBC (Bld) 49.4 % Normal 43.0-75.0 [facility] Comment on above: Performed By: #### C BC #### [facility] [address] [place] [address] Dr. Dolly Kelly Platelet mean volume (Bld) [Entitic vol] 10.8 fL Normal 9.5-13.5 [facility] Comment on above: Performed By: #### C BC #### [facility] [address] [place] [address] Dr. Dolly Kelly PLT 262 103/ul Normal 150-450 [facility] Comment on above: Performed By: #### C BC #### [facility] [address] [place] [address] Dr. Dolly Kelly RBC 4.27 106/ul Normal 4.20-5.40 [facility] Comment on above: Performed By: #### C BC #### [facility] [address] [place] [address] Dr. Dolly Kelly WBC 5.1 103/ul Normal 4.0-11.0 [facility] Comment on above: Performed By: #### C BC #### [facility] [address] [place] [address] Dr. Dolly Kelly CBC AUTO DIFFon 09-01-2022 BASO # 0.1 103/ul Normal 0.0-0.1 [facility] Comment on above: Performed By: #### C BC ####[facility] [address] [address]Dr. Dolly Kelly Basophils/100 WBC (Bld) 1.2 % Normal 0.2-2.0 [facility] Comment on above: Performed By: #### C BC ####[facility] [address] [place], [place] [address]Dr. Dolly Kelly EO # 0.1 103/ul Normal 0.0-0.7 [facility] Comment on above: Performed By: #### C BC ####[facility] [address] [place], [place] [address]Dr. Dolly Kelly Eosinophils/100 WBC (Bld) 2.9 % Normal 0.9-7.0 [facility] Comment on above: Performed By: #### C BC ####[facility] [address] [place], [place] [address]Dr. Dolly Kelly Erythrocyte distribution width (RBC) [Ratio] 15.4 % Critically high 11.0-15.0 [facility] Comment on above: Performed By: #### C BC ####[facility] [address] [place], [place] [address]Dr. Dolly Kelly Hematocrit (Bld) [Volume fraction] 35.6 % Critically low 36.0-48.0 [facility] Comment on above: Performed By: #### C BC ####[facility] [address] [place], [place] [address]DrZarina Kelly Hemoglobin (Bld) [Mass/Vol] 11.3 g/dL Critically low 12.0-16.0 [facility] Comment on above: Performed By: #### C BC ####[facility] [address] [place], [place] [address]DrZarina Kelly IG # 0.01 10e3/ul Normal 0.00-0.03 [facility] Comment on above: Performed By: #### C BC ####[facility] [address] [place], [place] [address]Dr. Dolly Kelly IG % 0.2 % Normal 0.0-0.5 [facility] Comment on above: Performed By: #### C BC ####[facility] [address] [place], [place] [address]DrZarina Kelly LYMPH # 1.9 103/ul Normal 1.2-3.8 [facility] Comment on above: Performed By: #### C BC ####[facility] [address] [address]Dr. Dolly Klely Lymphocytes/100 WBC (Bld) 38.1 % Normal 20.5-60.0 [facility] Comment on above: Performed By: #### C BC ####[facility] [address] [address]DrZarina Kelly MANUAL DIFF REQ NO Normal [facility] Comment on above: Performed By: #### C BC ####[facility] [address] [address]DrZarina Kelly MCH (RBC) [Entitic mass] 28.5 pg Normal 26.7-34.0 [facility] Comment on above: Performed By: #### C BC ####[facility] [address] [place], [place] [address]Dr. Dolly Kelly MCHC (RBC) [Mass/Vol] 31.7 g/dL Normal 29.9-35.2 [facility] Comment on above: Performed By: #### C BC ####[facility] [address] [place], [place] [address]DrZarina Kelly MCV (RBC) [Entitic vol] 89.9 fL Normal 81.0-99.0 [facility] Comment on above: Performed By: #### C BC ####[facility] [address] [place], [place] [address]Dr. Dolly Kelly MONO # 0.4 103/ul Normal 0.3-0.8 [facility] Comment on above: Performed By: #### C BC ####[facility] [address] [place], [place] [address]DrZarina Kelly Monocytes/100 WBC (Bld) 8.6 % Normal 1.7-12.0 [facility] Comment on above: Performed By: #### C BC ####[facility] [address] [place], [place] [address]DrZarina Kelly NEUT # 2.4 103/ul Normal 1.4-6.5 [facility] Comment on above: Performed By: #### C BC ####[facility] [address] [address]Dr. Dolly Kelly Neutrophils/100 WBC (Bld) 49.0 % Normal 43.0-75.0 [facility] Comment on above: Performed By: #### C BC ####[facility] [address]pklqrl[address] [place] [address]Dr. Dolly Kelly Platelet mean volume (Bld) [Entitic vol] 10.9 fL Normal 9.5-13.5 [facility] Comment on above: Performed By: #### C BC ####[facility] Wcfdvmjepo[address] [place] [address]Dr. Dolly Kelly PLT 265 103/ul Normal 150-450 [facility] Comment on above: Performed By: #### C BC ####[facility] Typqhqxluy9151 [place] [address]Dr. Dolly Kelly RBC 3.96 106/ul Critically low 4.20-5.40 [facility] Comment on above: Performed By: #### C BC ####[facility] Deuzhtrvnr[address] [place] [address]Dr. Dolly Kelly WBC 4.9 103/ul Normal 4.0-11.0 [facility] Comment on above: Performed By: #### C BC ####[facility] Wzrqcrlrbt23[address] [place] [address]Dr. Dolly Kelly XR CHEST 2V FRONTAL/LATon XR CHEST 2V FRONTAL/LAT Normal [facility] CBC AUTO DIFFon 08-25-2022 BASO # 0.1 103/ul Normal 0.0-0.1 [facility] Comment on above: Performed By: #### C BC ####[facility] Lpvbbewzjg60[address] [place] [address]Dr. Dolly Kelly Basophils/100 WBC (Bld) 1.1 % Normal 0.2-2.0 [facility] Comment on above: Performed By: #### C BC ####[facility] Duiyzupvvu5[address] [place] [id number]. Dolly Kelly EO # 0.1 103/ul Normal 0.0-0.7 [facility] Comment on above: Performed By: #### C BC ####[facility] Qaqmtfgutw[address] [place] [address]Dr. Dolly Kelly Eosinophils/100 WBC (Bld) 2.4 % Normal 0.9-7.0 [facility] Comment on above: Performed By: #### C BC ####[facility] Iopolbcdxk[address] [place], [place] [address]Dr. Dolly Kelly Erythrocyte distribution width (RBC) [Ratio] 15.7 % Critically high 11.0-15.0 [facility] Comment on above: Performed By: #### C BC ####[facility] Uhgieelwhs[address] [place], [place] [address]Dr. Dolly Kelly Hematocrit (Bld) [Volume fraction] 34.7 % Critically low 36.0-48.0 [facility] Comment on above: Performed By: #### C BC ####[facility] Freswmzgsf[address] [place], [place] [address]Dr. Dolly Kelly Hemoglobin (Bld) [Mass/Vol] 11.2 g/dL Critically low 12.0-16.0 [facility] Comment on above: Performed By: #### C BC ####[facility] Emnbyqqmzk[address] [place], [place] [address]Dr. Dolly Kelly IG # 0.01 10e3/ul Normal 0.00-0.03 [facility] Comment on above: Performed By: #### C BC ####[facility] Gzorxruzig[address] [place], [place] [address]Dr. Dolly Kelly IG % 0.2 % Normal 0.0-0.5 [facility] Comment on above: Performed By: #### C BC ####[facility] Nifxikrfjz[address] [place], [place] [address]Dr. Dolly Kelyl LYMPH # 2.0 103/ul Normal 1.2-3.8 [facility] Comment on above: Performed By: #### C BC ####[facility] Asesagmjih0572 [place] [phone]. Dolly Kelly Lymphocytes/100 WBC (Bld) 36.8 % Normal 20.5-60.0 [facility] Comment on above: Performed By: #### C BC ####[facility] Uqzcenkpmu7486 [place] [id number]. Dolly Kelly MANUAL DIFF REQ NO Normal [facility] Comment on above: Performed By: #### C BC ####[facility] Dfqqbytoiz2007 [place] [id number]. Dolly Robin MCH (RBC) [Entitic mass] 28.9 pg Normal 26.7-34.0 [facility] Comment on above: Performed By: #### C BC ####[facility] Ifcboaexod33[address] [place] [address]Dr. Dolly Kelly MCHC (RBC) [Mass/Vol] 32.3 g/dL Normal 29.9-35.2 [facility] Comment on above: Performed By: #### C BC ####[facility] Fkiewmbpkv7426 [place] [id number]. Dolly Kelly MCV (RBC) [Entitic vol] 89.4 fL Normal 81.0-99.0 [facility] Comment on above: Performed By: #### C BC ####[facility] Zirsswwgkp2826 [place] [id number]. Dolly Robin MONO # 0.4 103/ul Normal 0.3-0.8 [facility] Comment on above: Performed By: #### C BC ####[facility] Vnkwnyfybd8932 [place] [id number]. Dolly Kelly Monocytes/100 WBC (Bld) 7.0 % Normal 1.7-12.0 [facility] Comment on above: Performed By: #### C BC ####[facility] Acvwucsmpt[address] [place], [place] [address]Dr. Isabellajoyce Kelly NEUT # 2.9 103/ul Normal 1.4-6.5 [facility] Comment on above: Performed By: #### C BC ####[facility] Ekxpyfucty2833 [place], [place] [address]Sv. Dolly Kelly Neutrophils/100 WBC (Bld) 52.5 % Normal 43.0-75.0 [facility] Comment on above: Performed By: #### C BC ####[facility] Awgvywqcgc7139 [place], [place] [address]Fi. Dolly Kelly Platelet mean volume (Bld) [Entitic vol] 10.1 fL Normal 9.5-13.5 [facility] Comment on above: Performed By: #### C BC ####[facility] Xfnunoqbuy5558 [place], [place] [address]Me. Dolly Kelly PLT 306 103/ul Normal 150-450 [facility] Comment on above: Performed By: #### C BC ####[facility] Suxeytoqoa8904 [place], [place] [address]Jr. Dolly Kelly RBC 3.88 106/ul Critically low 4.20-5.40 [facility] Comment on above: Performed By: #### C BC ####[facility] Ohtpgjwrsx4834 [place], [place] [address]Rz. Dolly Kelly WBC 5.5 103/ul Normal 4.0-11.0 [facility] Comment on above: Performed By: #### C BC ####[facility] Xrbupaefop50[address] [place] [id number]. Dolly Kelly Basic metabolic 2000 panelon 08-15-2022 Anion gap [Moles/Vol] 9 mmol/L Normal 9-18 [facility] Comment on above: Order Comment: Speci men Type: BLOOD SPECIMENOrdering Facility: [facility] Address: [address] [place] [address] Performed By: #### 1 9123-9, 2777-1, 65251-7 ####[facility] LABORATORYCLIA [id number] [place] [address] [place] Calcium [Mass/Vol] 8.7 mg/dL Normal 8.5-10.2 [facility] Comment on above: Order Comment: Speci men Type: BLOOD SPECIMENOrdering Facility: [facility] Address: [address] [place], [place] [address] [phone] Performed By: #### 1 9123-9, 2777-1, 15120-1 ####[facility] LABORATORYCLIA [id number] [place] [address] [place] Chloride [Moles/Vol] 108 mmol/L High 97-105 [facility] Comment on above: Order Comment: Speci men Type: BLOOD SPECIMENOrdering Facility: [facility] Address: [address] [place] [address] Performed By: #### 1 9123-9, 2777-, 34904-3 ####[facility] LABORATORYCLIA [id number] [place] [address] [place] CO2 [Moles/Vol] 27 mmol/L Normal 22-30 [facility] Comment on above: Order Comment: Speci men Type: BLOOD SPECIMENOrdering Facility: [facility] Address: [address] [place] [address] Performed By: #### 1 9123-9, 2777, 88221-1 ####[facility] LABORATORYCLIA [id number] [place] [address] [place] Creatinine [Mass/Vol] 0.64 mg/dL Normal 0.58-0.96 [facility] Comment on above: Order Comment: Speci men Type: BLOOD SPECIMENOrdering Facility: [facility] Address: [address] [place] [address] Performed By: #### 1 9123-9, 2777-, 24630-1 ####[facility] LABORATORYCLIA [id number] [place] [address] [place] ESTIMATED GLOMERULAR FILTRATION RATE 111 mL/min/1.73m??? Normal >=60 [facility] Comment on above: Order Comment: Speci men Type: BLOOD SPECIMENOrdering Facility: [facility] Address: [address] [place] [address] Result Comment: Randy mated Glomerular Filtration Rate (eGFR) is calculated using the 2020 CKD-EPI creatinine equation. This equation utilizes serum creatinine, sex, and age as parameters. The creatinine assay has traceable calibration to isotope dilution-mass spectrometry. Refer to KDIGO guidelines for clinical interpretation. In patients with unstable renal function, e.g. those with acute kidney injury, the eGFR may not accurately reflect actual GFR. Performed By: #### 1 9123-9, 2777-, 08771-8 ####[facility] LABORATORYCLIA [id number] [place] [address] [place] Glucose [Mass/Vol] 89 mg/dL Normal 74-99 [facility] Comment on above: Order Comment: [place] fields Type: BLOOD SPECIMENOrdering Facility: [facility] Address: [place] [address] Result Comment: The [place] [employer] (ADA) provides guidance for cutoff values for fasting glucose and random glucose. The ADA defines fasting as no caloric intake for at least 8 hours. Fasting plasma glucose results between 100 to 125 mg/dL indicate increased risk for diabetes (prediabetes).Fasting plasma glucose results greater than or equal to 126 mg/dL meet the criteria for diagnosis of diabetes. In the absence of unequivocal hyperglycemia, results should be confirmed by repeat testing. In a patient with classic symptoms of hyperglycemia or hyperglycemic crisis, random plasma glucose results greater than or equal to 200 mg/dL meet the criteria for diagnosis of diabetes.Reference: Standards of Medical Care in Diabetes 2016, [place] [employer]. Diabetes Care. 2016.39(Suppl 1). Performed By: #### 1 9123-9, 2776-09, 85601-6 ####[facility] LABORATORYCLIA [id number] [place] [address] [place] Potassium [Moles/Vol] 3.6 mmol/L Low 3.7-5.1 [facility] Comment on above: Order Comment: [place] Type: BLOOD SPECIMENOrdering Facility: [facility] Address: [place] [address] Performed By: #### 1 9123-9, 2777-, 72681-3 ####[facility] LABORATORYCLIA [id number] [place] [address] [place] Sodium [Moles/Vol] 144 mmol/L Normal 136-144 [facility] Comment on above: Order Comment: Speci men Type: BLOOD SPECIMENOrdering Facility: [facility] Address: [address] [place] [address] Performed By: #### 1 9123-9, 2777-1, 86487-8 ####[facility] LABORATORYCLIA [id number] [address] [place] Urea nitrogen [Mass/Vol] 4 mg/dL Low 7-21 [facility] Comment on above: Order Comment: Speci men Type: BLOOD SPECIMENOrdering Facility: [facility] Address: [address] [place] [address] Performed By: #### 1 9123-9, 2777, 49133-1 ####[facility] LABORATORYCLIA [id number] [address] [facility] CASE MANAGEMon 08-15-2022 CASE MANAGEM Normal [facility] CBC panel Auto (Bld)on 08-15 Erythrocyte distribution width (RBC) [Ratio] 14.8 % Normal 11.5-15.0 [facility] Comment on above: Order Comment: Speci men Type: BLOOD SPECIMENOrdering Facility: [facility] Address: [address] [place] [address] Performed By: #### 5 8410-2 ####[facility] LABORATORYCLIA [id number] [address] [facility] Hematocrit (Bld) [Volume fraction] 27.4 % Low 36.0-46.0 [facility] Comment on above: Order Comment: Speci men Type: BLOOD SPECIMENOrdering Facility: [facility] Address: [address] [place] [address] Performed By: #### 5 8410-2 ####[facility] LABORATORYCLIA [id number] [address] [place] Hemoglobin (Bld) [Mass/Vol] 8.8 g/dL Low 11.5-15.5 [facility] Comment on above: Order Comment: Speci men Type: BLOOD SPECIMENOrdering Facility: [facility] Address: [address] [place], [place] [address] Performed By: #### 5 8410-2 ####[facility] LABORATORYCLIA [id number] [address] MCH (RBC) [Entitic mass] 28.6 pg Normal 26.0-34.0 [facility] Comment on above: Order Comment: Speci men Type: BLOOD SPECIMENOrdering Facility: [facility] Address: [address] [place] [place] [address] Performed By: #### 5 8410-2 ####[facility] LABORATORYCLIA [id number] [address] [place] MCHC (RBC) [Mass/Vol] 32.1 g/dL Normal 30.5-36.0 [facility] Comment on above: Order Comment: Speci men Type: BLOOD SPECIMENOrdering Facility: [facility] Address: [address] [place] [place] [address] Performed By: #### 5 8410-2 ####[facility] LABORATORYCLIA [id number] [address] [place] MCV (RBC) [Entitic vol] 89.0 fL Normal 80.0-100.0 [facility] Comment on above: Order Comment: Speci men Type: BLOOD SPECIMENOrdering Facility: [facility] Address: [address] [place] [address] Performed By: #### 5 8410-2 ####[facility] LABORATORYCLIA [id number] [address] [place] Nucleated RBC (Bld) [#/Vol] 10*3/uL Normal <0.01 [facility] Comment on above: Order Comment: Speci men Type: BLOOD SPECIMENOrdering Facility: [facility] Address: [address] [place] [address] Performed By: #### 5 8410-2 ####[facility] LABORATORYCLIA [id number] [address] [place] Platelet mean volume (Bld) [Entitic vol] 9.4 fL Normal 9.0-12.7 [facility] Comment on above: Order Comment: Speci men Type: BLOOD SPECIMENOrdering Facility: [facility] Address: [address] [place] [address] Performed By: #### 5 8410-2 ####[facility] LABORATORYCLIA [id number] [place] [address] [place] Platelets (Bld) [#/Vol] 333 10*3/uL Normal 150-400 [facility] Comment on above: Order Comment: Speci men Type: BLOOD SPECIMENOrdering Facility: [facility] Address: [address] [place] [address] Performed By: #### 5 8410-2 ####[facility] LABORATORYCLIA [id number] [place] [address] [place] RBC (Bld) [#/Vol] 3.08 10*6/uL Low 3.90-5.20 [facility] Comment on above: Order Comment: Speci men Type: BLOOD SPECIMENOrdering Facility: [facility] Address: [address] [place] [address] Performed By: #### 5 8410-2 ####[facility] LABORATORYCLIA [id number] [place] [address] [place] WBC (Bld) [#/Vol] 3.73 10*3/uL Normal 3.70-11.00 [facility] Comment on above: Order Comment: Speci men Type: BLOOD SPECIMENOrdering Facility: [facility] Address: [address] [place] [address] Performed By: #### 5 8410-2 ####[facility] LABORATORYCLIA [id number] [place] [address] [place] CNDSon 08-15-2022 CNDS Normal [facility] CONSULTon 08-15-2022 CONSULT Normal [facility] Magnesium SerPl-mCncon 08-15 Magnesium [Mass/Vol] 2.0 mg/dL Normal 1.7-2.3 [facility] Comment on above: Order Comment: Speci men Type: BLOOD SPECIMENOrdering Facility: [facility] Address: [address] [place] [address] [place] [address] Performed By: #### 1 9123-9, 2777-, 61363-4 ####[facility] LABORATORYCLIA [id number] [place] [address] [place] NURSING PROGon 08-15-2022 NURSING PROG Normal [facility] PT EDon 08-15-2022 PT ED Normal [facility] Phosphate SerPl-mCncon 08-15 Phosphate [Mass/Vol] 3.9 mg/dL Normal 2.7-4.8 [facility] Comment on above: Order Comment: Speci men Type: BLOOD SPECIMENOrdering Facility: [facility] Address: [address] Performed By: #### 1 9123-9, 2777-, 65109-6 ####[facility] LABORATORYCLIA [id number] [place] [address] [place] Basic metabolic 2000 panelon 08-14-2022 Anion gap [Moles/Vol] 10 mmol/L Normal 9-18 [facility] Comment on above: Order Comment: Speci men Type: BLOOD SPECIMENOrdering Facility: [facility] Address: [address] [place] [address] Performed By: #### 2 4321-2, , 2776-09 ####[facility] LABORATORYCLIA [id number] [place] [address] [place] Calcium [Mass/Vol] 9.0 mg/dL Normal 8.5-10.2 [facility] Comment on above: Order Comment: Speci men Type: BLOOD SPECIMENOrdering Facility: [facility] Address: [address] [phone] Performed By: #### 2 4321-2, , 2776-09 ####[facility] LABORATORYCLIA [id number] [place] [address] [place] Chloride [Moles/Vol] 108 mmol/L High 97-105 [facility] Comment on above: Order Comment: Speci men Type: BLOOD SPECIMENOrdering Facility: [facility] Address: [address] Performed By: #### 2 4321-2, , 2776-09 ####[facility] LABORATORYCLIA [id number] [place] [id number] [place] CO2 [Moles/Vol] 26 mmol/L Normal 22-30 [facility] Comment on above: Order Comment: Speci men Type: BLOOD SPECIMENOrdering Facility: [facility] Address: [address] [place] [address] Performed By: #### 2 4321-2, , 2776-09 ####[facility] LABORATORYCLIA [id number] [place] [address] [place] Creatinine [Mass/Vol] 0.60 mg/dL Normal 0.58-0.96 [facility] Comment on above: Order Comment: Speci men Type: BLOOD SPECIMENOrdering Facility: [facility] Address: [address] [place] [address] Performed By: #### 2 4321-2, , 2776-09 ####[facility] LABORATORYCLIA [id number] [place] [id number] [place] ESTIMATED GLOMERULAR FILTRATION RATE 113 mL/min/1.73m??? Normal >=60 [facility] Comment on above: Order Comment: Speci men Type: BLOOD SPECIMENOrdering Facility: [facility] Address: [address] [place] [address] Result Comment: Randy mated Glomerular Filtration Rate (eGFR) is calculated using the 2020 CKD-EPI creatinine equation. This equation utilizes serum creatinine, sex, and age as parameters. The creatinine assay has traceable calibration to isotope dilution-mass spectrometry. Refer to KDIGO guidelines for clinical interpretation. In patients with unstable renal function, e.g. those with acute kidney injury, the eGFR may not accurately reflect actual GFR. Performed By: #### 2 4321-2, , 2776-09 ####[facility] LABORATORYCLIA [id number] [place] [address] [place] Glucose [Mass/Vol] 92 mg/dL Normal 74-99 [facility] Comment on above: Order Comment: Speci men Type: BLOOD SPECIMENOrdering Facility: [facility] Address: [address] [place] [phone] Result Comment: The [place] [employer] (ADA) provides guidance for cutoff values for fasting glucose and random glucose. The ADA defines fasting as no caloric intake for at least 8 hours. Fasting plasma glucose results between 100 to 125 mg/dL indicate increased risk for diabetes (prediabetes).Fasting plasma glucose results greater than or equal to 126 mg/dL meet the criteria for diagnosis of diabetes. In the absence of unequivocal hyperglycemia, results should be confirmed by repeat testing. In a patient with classic symptoms of hyperglycemia or hyperglycemic crisis, random plasma glucose results greater than or equal to 200 mg/dL meet the criteria for diagnosis of diabetes.Reference: Standards of Medical Care in Diabetes 2016, [place] [employer]. Diabetes Care. 2016.39(Suppl 1). Performed By: #### 2 432-2, , 2776-09 ####[facility] LABORATORYCLIA [id number] [place] [address] [place] Potassium [Moles/Vol] 3.8 mmol/L Normal 3.7-5.1 [facility] Comment on above: Order Comment: [place] Type: BLOOD SPECIMENOrdering Facility: [facility] Address: [place] [address] Performed By: #### 2 4320-2, , 2776-09 ####[facility] LABORATORYCLIA [id number] [place] [address] [place] Sodium [Moles/Vol] 144 mmol/L Normal 136-144 [facility] Comment on above: Order Comment: Sharon[place] men Type: BLOOD SPECIMENOrdering Facility: [facility] Address: [address] [place] [phone] Performed By: #### 2 4321-2, , 2776-09 ####[facility] LABORATORYCLIA [id number] [place] [address] [place] Urea nitrogen [Mass/Vol] 4 mg/dL Low 7-21 [facility] Comment on above: Order Comment: Speci men Type: BLOOD SPECIMENOrdering Facility: [facility] Address: [address] [place] [address] Performed By: #### 2 4321-2, 84587-4, 2777-1 ####[facility] LABORATORYCLIA [id number] [address] [place] CASE MANAGEMon 08-14-2022 CASE MANAGEM Normal [facility] CBC panel Auto (Bld)on 08-14 Erythrocyte distribution width (RBC) [Ratio] 14.5 % Normal 11.5-15.0 [facility] Comment on above: Order Comment: Speci men Type: BLOOD SPECIMENOrdering Facility: [facility] Address: [address] [place] [address] Performed By: #### 5 8410-2 ####[facility] LABORATORYCLIA [id number] [address] [place] Hematocrit (Bld) [Volume fraction] 28.6 % Low 36.0-46.0 [facility] Comment on above: Order Comment: Speci men Type: BLOOD SPECIMENOrdering Facility: [facility] Address: [address] [place] [address] Performed By: #### 5 8410-2 ####[facility] LABORATORYCLIA [id number] [place] [address] [place] Hemoglobin (Bld) [Mass/Vol] 9.3 g/dL Low 11.5-15.5 [facility] Comment on above: Order Comment: Speci men Type: BLOOD SPECIMENOrdering Facility: [facility] Address: [address] [place] [address] Performed By: #### 5 8410-2 ####[facility] LABORATORYCLIA [id number] [address] [place] MCH (RBC) [Entitic mass] 28.7 pg Normal 26.0-34.0 [facility] Comment on above: Order Comment: Speci men Type: BLOOD SPECIMENOrdering Facility: [facility] Address: [address] [place], [place] [phone] Performed By: #### 5 8410-2 ####[facility] LABORATORYCLIA [id number] [place] [address] [place] MCHC (RBC) [Mass/Vol] 32.5 g/dL Normal 30.5-36.0 [facility] Comment on above: Order Comment: Speci men Type: BLOOD SPECIMENOrdering Facility: [facility] Address: [address] [address] Performed By: #### 5 8410-2 ####[facility] LABORATORYCLIA [id number] [place] [address] [place] MCV (RBC) [Entitic vol] 88.3 fL Normal 80.0-100.0 [facility] Comment on above: Order Comment: Speci men Type: BLOOD SPECIMENOrdering Facility: [facility] Address: [address] [place] [address] Performed By: #### 5 8410-2 ####[facility] LABORATORYCLIA [id number] [place] [address] [place] Nucleated RBC (Bld) [#/Vol] 10*3/uL Normal <0.01 [facility] Comment on above: Order Comment: Speci men Type: BLOOD SPECIMENOrdering Facility: [facility] Address: [address] [place] [address] Performed By: #### 5 8410-2 ####[facility] LABORATORYCLIA [id number] [place] [address] [place] Platelet mean volume (Bld) [Entitic vol] 9.2 fL Normal 9.0-12.7 [facility] Comment on above: Order Comment: Speci men Type: BLOOD SPECIMENOrdering Facility: [facility] Address: [address] [place] [place] [address] Performed By: #### 5 8410-2 ####[facility] LABORATORYCLIA [id number] [place] [address] [place] Platelets (Bld) [#/Vol] 355 10*3/uL Normal 150-400 [facility] Comment on above: Order Comment: Speci men Type: BLOOD SPECIMENOrdering Facility: [facility] Address: [address] [place] [address] Performed By: #### 5 8410-2 ####[facility] LABORATORYCLIA [id number] [address] [facility] RBC (Bld) [#/Vol] 3.24 10*6/uL Low 3.90-5.20 [facility] Comment on above: Order Comment: Speci men Type: BLOOD SPECIMENOrdering Facility: [facility] Address: [address] [place] [address] Performed By: #### 5 8410-2 ####[facility] LABORATORYCLIA [id number] [address] WBC (Bld) [#/Vol] 4.35 10*3/uL Normal 3.70-11.00 [facility] Comment on above: Order Comment: Speci men Type: BLOOD SPECIMENOrdering Facility: [facility] Address: [address] [place] [address] Performed By: #### 5 8410-2 ####TUPE[facility] LABORATORYCLIA [id number] [place] [id number] [facility] CNDSon 08-14-2022 CNDS HNO ID: [id number] Author: Arnold Johnson MD Service: Hospital Medicine Author Type: Physician Type: Discharge Summary Filed: 08/14/2022 8:21 AM Note Text: DISCHARGE NOTE (Patient Admitted Less than 48 Hours) SERVICE DATE: 08/14/2022 ADMISSION DATE: 08/11/2022 Discharge date: 08/13/2022 DISCHARGE DISPOSITION: [facility] Hospital course: Melina Díaz is a 46 year old female presented with past medical history of obesity, gastric sleeve surgery in 2011 with conversion to bypass in 01/03 and subsequent revision on 07/29 Gelacio en Y, chronic pain syndrome, ADHD, anxiety, hypothyroidism, anemia, migraines, severe GJ stricture (s/p dilation x2), endometriosis and kidney stone. Presented with right lower quadrant pain gradually worsening last few days nausea/vomiting. CT abdomen pelvis showed: right abdominal wall abscess and complex collection in the right posterior pelvis 3.5 x 2.6 x 2.9 cm concerning for pelvic abscess. IR stated there is no window to drain pelvic abscess. General surgery did IANDD on the abdominal wall absces and signed off. IV had placed patient on vancomycin, ceftriaxone and Flagyl. Patient got the bed at [facility] and transferred to [facility] for evaluation of the pelvic abscess. FINAL DIAGNOSIS: Abdominal wall and pelvic abscesses SIGNATURE: Arnold Johnson MD PATIENT NAME: Melina Díaz DATE: August 14, 2022 TIME: 8:19 AM Normal [facility] CONSULTon 08-14-2022 CONSULT Normal [facility] HISTORY PHYSICALon HISTORY PHYSICAL Normal [facility] Magnesium [facility] 08-14 Magnesium [Mass/Vol] 2.0 mg/dL Normal 1.7-2.3 [facility] Comment on above: Order Comment: Speci men Type: BLOOD SPECIMENOrdering Facility: [facility] Address: [address] [place] [address] Performed By: #### 2 4321-2, , 2776-09 ####TUPELO LABORATORYCLIA [id number] [place] [id number] [place] NURSING PROGon 08-14-2022 NURSING PROG [facility] NURSING PROG [facility] Phosphate [facility] 08-14 Phosphate [Mass/Vol] 4.0 mg/dL Normal 2.7-4.8 [facility] Comment on above: Order Comment: Speci men Type: BLOOD SPECIMENOrdering Facility: [facility] Address: [address] [place], [place] [id number] Performed By: #### 2 4321-2, 64109-1, 2776-09 ####TUPE[facility] LABORATORYCLIA [id number] [place] [id number] [place] Basic metabolic 2000 panelon 08-13-2022 Anion gap [Moles/Vol] 8 mmol/L Low 9-18 [facility] Comment on above: Order Comment: Speci men Type: BLOOD SPECIMENOrdering Facility: [facility] Address: [address] [place] [place] [address] Performed By: #### 2 4321-2 ####[facility] LABORATORYIA [id number] [place] [id number] [place] Calcium [Mass/Vol] 8.6 mg/dL Normal 8.5-10.2 [facility] Comment on above: Order Comment: Speci men Type: BLOOD SPECIMENOrdering Facility: [facility] Address: [address] [place] [place] [address] Performed By: #### 2 4321-2 ####[facility] CENTERIA [id number] [place] [address] [place] Chloride [Moles/Vol] 108 mmol/L High 97-105 [facility] Comment on above: Order Comment: Speci men Type: BLOOD SPECIMENOrdering Facility: [facility] Address: [address] [place] [address] Performed By: #### 2 1-2 ####[facility] CENTERIA [id number] [place] [address] [place] CO2 [Moles/Vol] 26 mmol/L Normal 22-30 [facility] Comment on above: Order Comment: Speci men Type: BLOOD SPECIMENOrdering Facility: [facility] Address: [address] [place] [place] [address] Performed By: #### 2 4321-2 ####[facility] LABORATORYIA [id number] [place] [id number] [place] Creatinine [Mass/Vol] 0.52 mg/dL Low 0.58-0.96 [facility] Comment on above: Order Comment: Speci men Type: BLOOD SPECIMENOrdering Facility: [facility] Address: [address] [place] [address] Performed By: #### 2 4321-2 ####[facility] LABORATORYIA [id number] [place] [address] [place] ESTIMATED GLOMERULAR FILTRATION RATE 117 mL/min/1.73m??? Normal >=60 [facility] Comment on above: Order Comment: [place] fields Type: BLOOD SPECIMENOrdering Facility: [facility] Address: [place] [address] Result Comment: Randy mated Glomerular Filtration Rate (eGFR) is calculated using the 2020 CKD-EPI creatinine equation. This equation utilizes serum creatinine, sex, and age as parameters. The creatinine assay has traceable calibration to isotope dilution-mass spectrometry. Refer to KDIGO guidelines for clinical interpretation. In patients with unstable renal function, e.g. those with acute kidney injury, the eGFR may not accurately reflect actual GFR. Performed By: #### 2 4321-2 ####[facility] LABORATORYCLIA [id number] [facility] [place] [address] [place] Glucose [Mass/Vol] 92 mg/dL Normal 74-99 [facility] Comment on above: Order Comment: [place] fields Type: BLOOD SPECIMENOrdering Facility: [facility] Address: [address] [place] [address] Result Comment: The [place] [employer] (ADA) provides guidance for cutoff values for fasting glucose and random glucose. The ADA defines fasting as no caloric intake for at least 8 hours. Fasting plasma glucose results between 100 to 125 mg/dL indicate increased risk for diabetes (prediabetes). Fasting plasma glucose results greater than or equal to 126 mg/dL meet the criteria for diagnosis of diabetes. In the absence of unequivocal hyperglycemia, results should be confirmed by repeat testing. In a patient with classic symptoms of hyperglycemia or hyperglycemic crisis, random plasma glucose results greater than or equal to 200 mg/dL meet the criteria for diagnosis of diabetes. Reference: Standards of Medical Care in Diabetes 2016, [place] [employer]. Diabetes Care. 2016.39(Suppl 1). Performed By: #### 2 4321-2 ####[facility] LABORATORYCLIA [id number] [facility] [place] [address] [place] Potassium [Moles/Vol] 3.7 mmol/L Normal 3.7-5.1 [facility] Comment on above: Order Comment: [place] fields Type: BLOOD SPECIMENOrdering Facility: [facility] Address: [address] [place], [place] [phone] Performed By: #### 2 4321-2 ####[facility] LABORATORYIA [id number] [place] [id number] [place] Sodium [Moles/Vol] 142 mmol/L Normal 136-144 [facility] Comment on above: Order Comment: Speci men Type: BLOOD SPECIMENOrdering Facility: [facility] Address: [address] [place] [address] Performed By: #### 2 4321-2 ####[facility] CENTERIA [id number] [place] [address] [place] Urea nitrogen [Mass/Vol] 3 mg/dL Low 7-21 [facility] Comment on above: Order Comment: Speci men Type: BLOOD SPECIMENOrdering Facility: [facility] Address: [address] [place] [address] Performed By: #### 2 4321-2 ####[facility] CENTERIA [id number] [address] [place] CBC panel Auto (Bld)on 08-13 Erythrocyte distribution width (RBC) [Ratio] 14.2 % Normal 11.5-15.0 [facility] Comment on above: Order Comment: Speci men Type: BLOOD SPECIMENOrdering Facility: [facility] Address: [address] [place] [address] Performed By: #### 5 8410-2 ####[facility] CENTERIA [id number] [address] [place] Hematocrit (Bld) [Volume fraction] 25.5 % Low 36.0-46.0 [facility] Comment on above: Order Comment: Speci men Type: BLOOD SPECIMENOrdering Facility: [facility] Address: [address] [place] [address] Performed By: #### 5 8410-2 ####[facility] LABORATORYIA [id number] [place] [id number] [place] Hemoglobin (Bld) [Mass/Vol] 8.1 g/dL Low 11.5-15.5 [facility] Comment on above: Order Comment: Speci men Type: BLOOD SPECIMENOrdering Facility: [facility] Address: [address] [place] [address] Performed By: #### 5 8410-2 ####[facility] [id number] [address] STATES OF [facility] MCH (RBC) [Entitic mass] 28.3 pg Normal 26.0-34.0 [facility] Comment on above: Order Comment: Speci men Type: BLOOD SPECIMENOrdering Facility: [facility] Address: [address] [place] [address] Performed By: #### 5 8410-2 ####[facility] [id number] [address] [place] MCHC (RBC) [Mass/Vol] 31.8 g/dL Normal 30.5-36.0 [facility] Comment on above: Order Comment: Speci men Type: BLOOD SPECIMENOrdering Facility: [facility] Address: [address] [place] [address] Performed By: #### 5 8410-2 ####[facility] [id number] [address] [place] MCV (RBC) [Entitic vol] 89.2 fL Normal 80.0-100.0 [facility] Comment on above: Order Comment: Speci men Type: BLOOD SPECIMENOrdering Facility: [facility] Address: [address] [place] [address] Performed By: #### 5 8410-2 ####[facility] [id number] [address] [place] Nucleated RBC (Bld) [#/Vol] 10*3/uL Normal <0.01 [facility] Comment on above: Order Comment: Speci men Type: BLOOD SPECIMENOrdering Facility: [facility] Address: [address] [place] [address] Performed By: #### 5 8410-2 ####[facility] LABORATORYIA [id number] [place] [address] [place] Platelet mean volume (Bld) [Entitic vol] 9.4 fL Normal 9.0-12.7 [facility] Comment on above: Order Comment: Speci men Type: BLOOD SPECIMENOrdering Facility: [facility] Address: [address] [place] [address] Performed By: #### 5 8410-2 ####[facility] CENTERIA [id number] [facility] [place] [address] [facility] [place] Platelets (Bld) [#/Vol] 326 10*3/uL Normal 150-400 [facility] Comment on above: Order Comment: Speci men Type: BLOOD SPECIMENOrdering Facility: [facility] Address: [address] [place] [address] Performed By: #### 5 8410-2 ####[facility] CENTERIA [id number] [facility] [place] [address] [place] RBC (Bld) [#/Vol] 2.86 10*6/uL Low 3.90-5.20 [facility] Comment on above: Order Comment: Speci men Type: BLOOD SPECIMENOrdering Facility: [facility] Address: [address] [place] [address] Performed By: #### 5 8410-2 ####[facility] CENTERIA [id number] [facility] [id number] [place] WBC (Bld) [#/Vol] 4.08 10*3/uL Normal 3.70-11.00 [facility] Comment on above: Order Comment: Speci men Type: BLOOD SPECIMENOrdering Facility: [facility] Address: [address] [place] [address] Performed By: #### 5 8410-2 ####[facility] LABORATORYIA [id number] [facility] [place] [address] [facility] CONSULTon 08-13-2022 CONSULT HNO ID: [id number] Author: Robin Terrell MD Service: Infectious Disease Author Type: Physician Type: Consults Filed: 08/13/2022 12:24 PM Note Text: INFECTIOUS DISEASE - PROGRESS NOTE Service Date: August 13, 2022 Service Time: 12:09 PM Patient Name: Melina Díaz Date of : 1975 SUBJECTIVE: Chief complaint / reason for follow up visit: Continuing to follow for right lower quadrant abdominal wall abscess Interval Events: Underwent incision and drainage right lower quadrant abdominal wall abscess Current Antibiotics: Antibiotic Dates 1) vancomycin, ceftriaxone, metronidazole 2) 3) 4) 5) OBJECTIVE: BP 116/70 Pulse 80 Temp 37.1 ?C (98.8 ?F) (Oral) Resp 18 Ht 172.7 cm (5' 8 ) Wt 95.3 kg (210 lb 1.6 oz) SpO2 96% BMI 31.95 kg/m? Physical Examination: Constitutional: comfortable, no distress Skin: no new diffuse rashes; see abdominal exam Eyes: clear sclera, no icterus ENMT: mucous membranes moist Respiratory/Chest: breathing comfortably Cardiovascular: no tachycardia Gastrointestinal: non-distended, no tympany to percussion; right lower quadrant laparoscopy incision site with decreased protuberance, slightly tender, less erythema Genitourinary: no hallman Musculoskeletal: no joint swelling, normal range of motion Extremities: no edema Neurological: alert and oriented Psychological: appropriate affect Laboratory Studies (I personally reviewed the clinical labs and microbiology data): WBC (k/uL) Date Value 08/13/2022 4.08 08/18/2012 5.91 Creatinine (mg/dL) Date Value 08/13/2022 0.52 08/18/2012 0.56 Estimated Creatinine Clearance: 165 mL/min (A) (based on SCr of 0.52 mg/dL (L)). Microbiology: Blood cultures: 08/11: NG Urine cultures: 08/11: Urine midstream clean-catch: Pending Other: 08/12 (right lower quadrant abdominal abscess): --- Gram stain: No organisms --- Routine culture: Pending --- Fungal culture: Pending 08/12: C. difficile PCR: Negative Imaging (I personally visualized the films below): No new imaging IMPRESSIONS: 1. Right lower quadrant laparoscopy incision site infection with cellulitis, subcutaneous abscess, muscle abscess --- See HPI from 08/12 for full details --- Developed edema, tenderness starting 08/07 at right lower quadrant laparoscopy incision site, then turned red the next day. Placed on Bactrim 08/08, but has been worsening. CT scan with complex fluid collection right lower quadrant abdominal wall including musculature. --- Microbial differential diagnosis includes gram-positive cocci such as Staph aureus, beta-hemolytic streptococci, Strep anginosus. Polymicrobial possible as well --- Underwent bedside IANDD 08/12, cultures pending 2. Right posterior pelvis fluid collection, approximately 13 days postoperatively --- Rule out infection versus sterile collection --- At this point patient did not present with signs of intra-abdominal abscess such as abdominal pain, fever, leukocytosis, etc. --- Noted radiology review the abnormality is felt to be separate from bowel loops but not completely excluded 3. Fever and chills --- Likely related to #1 4. Diarrhea after starting Bactrim --- Approximately 3-4 times a day. Rule out antibiotic associated diarrhea. C. difficile PCR was negative. 5. Recent surgery for revision of gastrojejunostomy --- See HPI for full summary --- Per note 06/20/2022 sleeve gastrectomy then was subsequently revised to a Gelacio-en-Y gastric bypass 12/2021, severe GJ stricture (s/p dilation x 2) --- OR (07/29): Laparoscopic revision of gastrojejunostomy. Also Right robotic-assisted vagotomy, Right robotic-assisted lower lobe wedge resection x 1, Right regional intercostal nerve block, interspaces 5 - 9, Right cryoanalgesia procedure, interspaces 5 - 7, Right chest tube placement x 1 --- She was given cefazolin 07/29 --- No fever during admission --- Discharged on 08/04/2022 --- No TPN on discharge --- Eating, but not a lot SUGGESTIONS / PLAN: 1. Antibiotics: --- Vancomycin + ceftriaxone + metronidazole --- See note from 08/12 for rationale 2. Follow-up pending cultures 3. Transfer to [facility] pending 4. With respect to right posterior pelvis fluid collection, approximately 13 days postoperatively. Rule out infection versus sterile collection. At this point patient did not present with signs of intra-abdominal abscess such as abdominal pain (outside or RLQ abdominal wall abscess), fever, leukocytosis, etc. Noted radiology CT review; the abnormality is felt to be separate from bowel loops but not completely excluded. One option is could be reevaluated after transfer [facility]. Other option could be if to monitor, follow up with surgery [facility], and if patient has worsening symptoms over the next several weeks, to repeat CT A/P and if larger might be amenable to aspiration to evaluate if in (more content not included)... Normal [facility] CONSULT PROGon 08-13-2022 CONSULT PROG HNO ID: [id number] Author: Jordan Monzon PA-C Service: Pain Management Author Type: Physician Unix System Administrator Type: Consult Progress Note Filed: 08/13/2022 4:35 PM Note Text: Pain Management - Progress Note Name: Melina Díaz Date: August 13, 2022 Time: 4:09 PM ASSESSMENT: Chronic pain syndrome. Generalized abdominal pain. Intercostal neuralgia. Post-op pain. PLAN: D/C Effexor. Continue current inpatient analgesic regimen. SUBJECTIVE: Melina Díaz is a 46 year old female with post-procedure RLQ pain. Reports adequate analgesia. Refusing Effexor -- states that it causes unpleasant emotional changes. Pain scores overnight between 5-10/10 per [employer]. The patient's current inpatient analgesic regimen includes: Tylenol 650 mg PO q6h PRN mild pain, Robaxin 750 mg PO TID, oxycodone 5-10 mg PO q4h PRN moderate-severe pain. The patient currently rates her pain at 6-7/10. She states that the pain is adequately controlled on her current regimen since the previous evaluation on 08/12/22. The patient denies adverse effects associated with her analgesics. MEDICATIONS: Current Facility-Administered Medications Medication Dose Route Frequency NaCl 0.9% iv flush bag 20 mL INTRAVENOUS PRN ALPRAZolam 0.5 mg tab(s) (XANAX) 0.5 mg ORAL AT BEDTIME PRN dextroamphetamine-amphetam ine 20 mg tab(s) (ADDERALL) 20 mg ORAL BID lactobacillus rhamnosus 10 billion cell (CULTURELLE) capsule 1 capsule ORAL DAILY senna-docusate 8.6-50 mg 1 tablet (SENNA-S) 1 tablet ORAL BID pantoprazole DR 40 mg tab(s) (PROTONIX) 40 mg ORAL DAILY (6 AM) venlafaxine 12.5 mg tab(s) (EFFEXOR) 12.5 mg ORAL DAILY methocarbamol 750 mg tab(s) (ROBAXIN) 750 mg ORAL TID levothyroxine 50 mcg tab(s) (SYNTHROID) 50 mcg ORAL DAILY (6 AM) sodium chloride 0.9 % (flush) 3-5 mL (BD POSIFLUSH) 3-5 mL INTRAVENOUS q 12 H NaCl 0.9% iv infusion 100 mL/hr INTRAVENOUS CONTINUOUS prochlorperazine 10 mg injection (COMPAZINE) 10 mg INTRAVENOUS q 6 H PRN vancomycin 1.5 g in D5W 250 mL (VANCOCIN) 1.5 g INTRAVENOUS q 12 HR vancomycin dosing and monitoring per pharmacy OTHER As Directed cefTRIAXone 2 g in D5W 100 mL Vial-Bag (ROCEPHIN) 2 g INTRAVENOUS q 24 H metroNIDAZOLE iv piggyback 500 mg in NaCl (iso-osmotic) 100 mL (FLAGYL) 500 mg INTRAVENOUS q 8 H ferric gluconate 125 mg in NaCl 0.9% 100 mL (FERRLECIT) 125 mg INTRAVENOUS DAILY AT 6 PM therapeutic multivitamin-minerals tablet (THERA-M PLUS) 1 tablet ORAL DAILY oxyCODONE IR 5-10 mg tab(s) (ROXICODONE) 5-10 mg ORAL q 4 H PRN acetaminophen 650 mg tab(s) (TYLENOL) 650 mg ORAL q 6 H PRN diphenhydrAMINE 25 mg (BENADRYL) 25 mg ORAL q 6 H PRN ketoconazole 2 % cream (NIZORAL) TOPICAL BID LABS: CBC: Recent Labs 08/13/22 0507 WBC 4.08 RBC 2.86* HB 8.1* HCT 25.5* PLT 326 MCV 89.2 MCH 28.3 MPV 9.4 CMP: Recent Labs 08/13/22 0507 NA 142 K 3.7 CHLOR 108* CO2 26 BUN 3* CREAT 0.52* GLUC 92 CA 8.6 ANION 8* PHYSICAL EXAMINATION: Blood pressure 116/55, pulse 64, temperature 36.7 ?C (98.1 ?F), temperature source Oral, resp. rate 18, height 172.7 cm (5' 8 ), weight 95.3 kg (210 lb 1.6 oz), SpO2 100 %. General appearance: Well appearing, alert, in no acute distress, well-hydrated, well nourished. YESSI Wilson PA-C August 13, 2022 4:35 PM Normal [facility] CONSULT PROG HNO ID: [id number] Author: Elin Crump PA-C Service: General Surgery Author Type: Physician Unix System Administrator Type: Consult Progress Note Filed: 08/13/2022 2:17 PM Note Text: SURGICAL SERVICES PROGRESS NOTE SERVICE DATE: 08/13/2022 SERVICE TIME: 1030 Subjective CHIEF COMPLAINT: RLQ pain at drained abscess INTERVAL HISTORY OF PRESENT ILLNESS: Melina Díaz seen today at bedside, s/p bedside IANDD RLQ abscess yesterday. Her wound packing was removed, purulent drainage saturating packing. Wound irrigated, repacked. Patient tolerated wound change well. Feels confident she and will be able to do daily wound packing changes. Afebrile, VSS, Normal WBC. Denies chest pain, SOB. Current Facility-Administered Medications Medication Dose Route Frequency NaCl 0.9% iv flush bag 20 mL INTRAVENOUS PRN ALPRAZolam 0.5 mg tab(s) (XANAX) 0.5 mg ORAL AT BEDTIME PRN dextroamphetamine-amphetam ine 20 mg tab(s) (ADDERALL) 20 mg ORAL BID lactobacillus rhamnosus 10 billion cell (CULTURELLE) capsule 1 capsule ORAL DAILY senna-docusate 8.6-50 mg 1 tablet (SENNA-S) 1 tablet ORAL BID pantoprazole DR 40 mg tab(s) (PROTONIX) 40 mg ORAL DAILY (6 AM) venlafaxine 12.5 mg tab(s) (EFFEXOR) 12.5 mg ORAL DAILY methocarbamol 750 mg tab(s) (ROBAXIN) 750 mg ORAL TID levothyroxine 50 mcg tab(s) (SYNTHROID) 50 mcg ORAL DAILY (6 AM) sodium chloride 0.9 % (flush) 3-5 mL (BD POSIFLUSH) 3-5 mL INTRAVENOUS q 12 H NaCl 0.9% iv infusion 100 mL/hr INTRAVENOUS CONTINUOUS prochlorperazine 10 mg injection (COMPAZINE) 10 mg INTRAVENOUS q 6 H PRN vancomycin 1.5 g in D5W 250 mL (VANCOCIN) 1.5 g INTRAVENOUS q 12 HR vancomycin dosing and monitoring per pharmacy OTHER As Directed cefTRIAXone 2 g in D5W 100 mL Vial-Bag (ROCEPHIN) 2 g INTRAVENOUS q 24 H metroNIDAZOLE iv piggyback 500 mg in NaCl (iso-osmotic) 100 mL (FLAGYL) 500 mg INTRAVENOUS q 8 H ferric gluconate 125 mg in NaCl 0.9% 100 mL (FERRLECIT) 125 mg INTRAVENOUS DAILY AT 6 PM therapeutic multivitamin-minerals tablet (THERA-M PLUS) 1 tablet ORAL DAILY oxyCODONE IR 5-10 mg tab(s) (ROXICODONE) 5-10 mg ORAL q 4 H PRN acetaminophen 650 mg tab(s) (TYLENOL) 650 mg ORAL q 6 H PRN diphenhydrAMINE 25 mg (BENADRYL) 25 mg ORAL q 6 H PRN ketoconazole 2 % cream (NIZORAL) TOPICAL BID Objective BP 116/70 Pulse 80 Temp 37.1 ?C (98.8 ?F) (Oral) Resp 18 Ht 172.7 cm (5' 8 ) Wt 95.3 kg (210 lb 1.6 oz) SpO2 96% BMI 31.95 kg/m? PHYSICAL EXAM: GENERAL: Alert, no distress, cooperative EYES: EOMI, Clear sclera LUNGS: Lungs clear to auscultation, Good diaphragmatic excursion CARDIAC: Normal S1 and S2; no rubs, murmurs, or gallops ABDOMEN: soft, mildly TTP around RLQ abscess IANDD site, non-distended, No guarding/rigidity. Wound packing removed, saturated with purulent drainage. Wound irrigated, probed to ensure no additional loculations, Re-packed with strip gauze, clean gauze applied. EXTREMITIES: Extremities normal. No deformities, edema, or skin discoloration NEURO: AANDOx3, motor and sensation grossly intact DATA: Diagnostic tests reviewed for today's visit: Most recent labs Recent Labs 08/13/22 0507 08/12/22 0440 08/12/22 0439 08/11/22 1658 WBC 4.08 4.94 -- 7.51 HB 8.1* 8.5* -- 9.5* HCT 25.5* 27.7* -- 29.2* PLT 326 341 -- 414* NA 142 -- 142 140 K 3.7 -- 3.5* 3.5* CHLOR 108* -- 108* 103 CO2 26 -- 27 24 CREAT 0.52* -- 0.59 0.63 BUN 3* -- 6* 9 GLUC 92 -- 94 130* TPROT -- -- -- 6.9 ALB -- -- -- 3.8* CA 8.6 -- 8.6 9.0 ALKPHOS -- -- -- 90 TBILI -- -- -- 0.2 AST -- -- -- 16 ALT -- -- -- 28 Assessment Patient Active Hospital Problem List: Abdominal wall abscess at site of surgical wound (08/11/2022) Pelvic abscess in female (08/12/2022) History of Gelacio-en-Y gastric bypass (06/16/2022) Assessment: Melina Díaz is a 46 year old female, PMH obesity, gastric sleeve surgery in 2011 with conversion to bypass in 01/03 and subsequent revision on 07/29/22 Gelacio en Y, as well as vagotomy and RLL wedge resection also 07/29/22, chronic pain syndrome, ADHD, anxiety, hypothyroidism, anemia, migraines, severe GJ stricture (s/p dilation x2), endometriosis and kidney stone, with RLQ abdominal wall abscess at port site, concerning for pelvic abscess. S/p RLQ abscess IANDD on 08/12/22 Plan Plan: - Afebrile, VSS, normal WBC. - Wound packing removed today, still purulent drainage from wound. Wound irrigated, probed to ensure no loculations. Wound re-packed with strip gauze and clean dressing applied - Needs daily packing changes: remove packing, irrigate with saline, repack with strip gauze, apply clean dressing. - RNs can complete daily packing changes until discharged. Please coordinate with patient/family for wound care teaching before discharge. - Patient will follow up with Dr. Ozuna, who has rescheduled appointment. - From GS standpoint, will defer decision to transfer to primary. Patient's RLQ abscess has (more content not included)... Normal [facility] NURSING PROGon 08-13-2022 NURSING PROG HNO ID: [id number] Author: Anny Rodriguez RN Service: ? Author Type: Registered Nurse Type: Nursing Progress Note Filed: 08/13/2022 4:19 PM Note Text: PICC/VASCULAR ACCESS PROGRESS NOTE SERVICE DATE: 08/13/2022 SERVICE TIME: 1600 Vascular access team called to bedside to place difficult PIV. 20 gauge Long placed in left forearm under ultrasound successfully. 20 cc flushed. Blood return present. RN notified. SIGNATURE: Anny Rodriguez RN PATIENT NAME: Melina Díaz DATE: August 13, 2022 TIME: 4:13 PM PAGER/CONTACT #: [phone] Normal [facility] Bacteria Wnd Culton 08-12-20 22 Bacteria identified Cx Nom (Wound) ORGANISM ID: 1 Rare Streptococcus anginosus group GRAM STAIN: No organisms seen No Polymorphonuclear Leukocytes ORGANISM ID: 1 (STREPTOCOCCUS ANGINOSUS GROUP) ANTIBIOTIC INTERPRETATION CHARLEE STATUS REFERENCE RANGE Penicillin G S 0.06 F Susceptible <=0.125 , Intermediate >.125 , Resistant >=4 Ceftriaxone S 0.25 F Susceptible <=1 , Intermediate >1 , Resistant >2 Vancomycin S 1 F Susceptible <=1 , Nonsusceptible >1 Clindamycin S <=0.12 F Susceptible <=0.25 , Intermediate >.25 , Resistant >.5 Abnormal [facility] Comment on above: Performed By: #### 6 462-6, 580-1 ####[facility] LABCLIA [id number] [place] [address] [place] Basic metabolic 2000 panelon 08-12-2022 Anion gap [Moles/Vol] 7 mmol/L Low 9-18 [facility] Comment on above: Order Comment: Speci men Type: BLOOD SPECIMENOrdering Facility: [facility] Address: [address] [address] Performed By: #### 2 4321-2 ####[facility] LABORATORYCLIA [id number] [place] [address] [place] Calcium [Mass/Vol] 8.6 mg/dL Normal 8.5-10.2 [facility] Comment on above: Order Comment: Speci men Type: BLOOD SPECIMENOrdering Facility: [facility] Address: [address] [place] [address] Performed By: #### 2 4321-2 ####[facility]ENTER[facility] [id number] [place] [address] [place] Chloride [Moles/Vol] 108 mmol/L High 97-105 [facility] Comment on above: Order Comment: Speci men Type: BLOOD SPECIMENOrdering Facility: [facility] Address: [address] [place] [address] Performed By: #### 2 1-2 ####[facility] [id number] [place] [address] [place] CO2 [Moles/Vol] 27 mmol/L Normal 22-30 [facility] Comment on above: Order Comment: Speci men Type: BLOOD SPECIMENOrdering Facility: [facility] Address: [address] [address] Performed By: #### 2 4321-2 ####[facility] LABORATORYIA [id number] [place] [address] [place] Creatinine [Mass/Vol] 0.59 mg/dL Normal 0.58-0.96 [facility] Comment on above: Order Comment: Speci men Type: BLOOD SPECIMENOrdering Facility: [facility] Address: [address] [address] Performed By: #### 2 4321-2 ####[facility] LABORATORYCLIA [id number] [facility] [place] [address] [place] ESTIMATED GLOMERULAR FILTRATION RATE 113 mL/min/1.73m??? Normal >=60 [facility] Comment on above: Order Comment: [place] fields Type: BLOOD SPECIMENOrdering Facility: [facility] Address: [address] [place] [address] Result Comment: Randy mated Glomerular Filtration Rate (eGFR) is calculated using the 2020 CKD-EPI creatinine equation. This equation utilizes serum creatinine, sex, and age as parameters. The creatinine assay has traceable calibration to isotope dilution-mass spectrometry. Refer to KDIGO guidelines for clinical interpretation. In patients with unstable renal function, e.g. those with acute kidney injury, the eGFR may not accurately reflect actual GFR. Performed By: #### 2 4321-2 ####[facility]ENTER[facility] [id number] [facility] [place] [address] [place] Glucose [Mass/Vol] 94 mg/dL Normal 74-99 [facility] Comment on above: Order Comment: [place] fields Type: BLOOD SPECIMENOrdering Facility: [facility] Address: [address] [place] [address] Result Comment: The [place] Diabetes Association (ADA) provides guidance for cutoff values for fasting glucose and random glucose. The ADA defines fasting as no caloric intake for at least 8 hours. Fasting plasma glucose results between 100 to 125 mg/dL indicate increased risk for diabetes (prediabetes). Fasting plasma glucose results greater than or equal to 126 mg/dL meet the criteria for diagnosis of diabetes. In the absence of unequivocal hyperglycemia, results should be confirmed by repeat testing. In a patient with classic symptoms of hyperglycemia or hyperglycemic crisis, random plasma glucose results greater than or equal to 200 mg/dL meet the criteria for diagnosis of diabetes. Reference: Standards of Medical Care in Diabetes 2016, [place] [employer]. Diabetes Care. 2016.39(Suppl 1). Performed By: #### 2 4321-2 ####[facility] LABORATORYCLIA [id number] [facility] [place] [address] [place] Potassium [Moles/Vol] 3.5 mmol/L Low 3.7-5.1 [facility] Comment on above: Order Comment: Speci men Type: BLOOD SPECIMENOrdering Facility: [facility] Address: [address] [address] Performed By: #### 2 4321-2 ####[facility]ENTER[facility] [id number] [address] [place] Sodium [Moles/Vol] 142 mmol/L Normal 136-144 [facility] Comment on above: Order Comment: Speci men Type: BLOOD SPECIMENOrdering Facility: [facility] Address: [address] [address] Performed By: #### 2 4321-2 ####[facility] [id number] [address] [place] Urea nitrogen [Mass/Vol] 6 mg/dL Low 7-21 [facility] Comment on above: Order Comment: Speci men Type: BLOOD SPECIMENOrdering Facility: [facility] Address: [address] [address] Performed By: #### 2 4321-2 ####[facility] [id number] [place] [address] [place] C diff Tox gens Stl Ql MEAGAN+p robeon 08-12-2022 C. difficile toxin genes MEAGAN+probe Ql (Stl) Negative Normal Negative for C. difficile toxin by PCR [facility] Comment on above: Order Comment: Speci men Type: STOOL SPECIMENOrdering Facility: [facility] Address: [address] [address] Performed By: #### 5 4067-4 ####[facility] LABCLIA [id number] [place] [address] [place] CBC W Auto Differential pane l (Bld)on 08-12-2022 Basophils (Bld) [#/Vol] 0.05 10*3/uL Normal <0.11 [facility] Comment on above: Order Comment: Speci men Type: BLOOD SPECIMEN [facility] Address: [address] [address] Performed By: #### 5 8410-2 #### [facility] CLIA [id number] [address] [place] [address] [place] Basophils/100 WBC (Bld) 1.0 % Normal [facility] Comment on above: Order Comment: Speci men Type: BLOOD SPECIMEN [facility] Address: [address] [place] [address] Performed By: #### 5 8410-2 #### [facility] CLIA [id number] [address] [place] [address] [place] Differential cell count method Nom (Bld) Auto Normal [facility] Comment on above: Order Comment: Speci men Type: BLOOD SPECIMEN [facility] Address: [address] [place] [address] Performed By: #### 5 8410-2 #### [facility] [place] [id number] [address] [place] [address] [place] Eosinophils (Bld) [#/Vol] 0.14 10*3/uL Normal <0.46 [facility] Comment on above: Order Comment: Speci men Type: BLOOD SPECIMEN [facility] Address: [address] [place] [address] Performed By: #### 5 8410-2 #### [facility] [place] [id number] [address] [place] [address] [place] Eosinophils/100 WBC (Bld) 2.8 % Normal [facility] Comment on above: Order Comment: Speci men Type: BLOOD SPECIMEN [facility] Address: [address] [place] [address] Performed By: #### 5 8410-2 #### [facility] CLIA [id number] [facility] [place] [address] [place] Erythrocyte distribution width (RBC) [Ratio] 14.5 % Normal 11.5-15.0 [facility] Comment on above: Order Comment: Speci men Type: BLOOD SPECIMEN [facility] Address: [address] [address] Performed By: #### 5 8410-2 #### [facility] [place] [id number] [address] [place] Hematocrit (Bld) [Volume fraction] 27.7 % Low 36.0-46.0 [facility] Comment on above: Order Comment: Speci men Type: BLOOD SPECIMEN [facility] Address: [address] [place], [place] [address] Performed By: #### 5 8410-2 #### [facility] [place] [id number] [address] [place] [address] [place] Hemoglobin (Bld) [Mass/Vol] 8.5 g/dL Low 11.5-15.5 [facility] Comment on above: Order Comment: Speci men Type: BLOOD SPECIMEN [facility] Address: [address] [place] [address] Performed By: #### 5 8410-2 #### [facility] IA [id number] [address] [place] Immature granulocytes (Bld) [#/Vol] 10*3/uL Normal <0.10 [facility] Comment on above: Order Comment: Speci men Type: BLOOD SPECIMEN [facility] Address: [address] [place], [place] [address] Performed By: #### 5 8410-2 #### [facility] IA [id number] [address] [place] Immature granulocytes/100 WBC (Bld) 0.2 % Normal [facility] Comment on above: Order Comment: Speci men Type: BLOOD SPECIMEN [facility] Address: [address] [place], [place] [address] Performed By: #### 5 8410-2 #### [facility] IA [id number] [address] [place] [address] [place] Lymphocytes (Bld) [#/Vol] 1.94 10*3/uL Normal 1.00-4.00 [facility] Comment on above: Order Comment: Speci men Type: BLOOD SPECIMEN [facility] Address: [address] [place] [address] Performed By: #### 5 8410-2 #### [facility] CLIA [id number] [address] [place] Lymphocytes/100 WBC (Bld) 39.3 % Normal [facility] Comment on above: Order Comment: Speci men Type: BLOOD SPECIMEN [facility] Address: [address] [place], [place] [address] Performed By: #### 5 8410-2 #### [facility] CLIA [id number] [address] [place] MCH (RBC) [Entitic mass] 28.9 pg Normal 26.0-34.0 [facility] Comment on above: Order Comment: Speci men Type: BLOOD SPECIMEN [facility] Address: [address] [place], [place] [address] Performed By: #### 5 8410-2 #### [facility] CLIA [id number] [address] [place] [address] [place] MCHC (RBC) [Mass/Vol] 30.7 g/dL Normal 30.5-36.0 [facility] Comment on above: Order Comment: Speci men Type: BLOOD SPECIMEN [facility] Address: [address] [place], [place] [address] Performed By: #### 5 8410-2 #### [facility] CLIA [id number] [address] [place] [address] OF [facility] MCV (RBC) [Entitic vol] 94.2 fL Normal 80.0-100.0 [facility] Comment on above: Order Comment: Speci men Type: BLOOD SPECIMEN [facility] Address: [address] [place], [place] [address] Performed By: #### 5 8410-2 #### [facility] CLIA [id number] [address] [place] [address] [place] Monocytes (Bld) [#/Vol] 0.44 10*3/uL Normal <0.87 [facility] Comment on above: Order Comment: Speci men Type: BLOOD SPECIMEN [facility] Address: [address] [place] [address] Performed By: #### 5 8410-2 #### [facility] CLIA [id number] [address] [place] [address] [place] Monocytes/100 WBC (Bld) 8.9 % Normal [facility] Comment on above: Order Comment: Speci men Type: BLOOD SPECIMEN [facility] Address: [address] [place] [address] Performed By: #### 5 8410-2 #### [facility] [place] [id number] [address] [place] [address] [place] Neutrophils (Bld) [#/Vol] 2.36 10*3/uL Normal 1.45-7.50 [facility] Comment on above: Order Comment: Speci men Type: BLOOD SPECIMEN [facility] Address: [address] [place] [address] Performed By: #### 5 8410-2 #### [facility] CLIA [id number] [address] [place] [address] [place] Neutrophils/100 WBC (Bld) 47.8 % Normal [facility] Comment on above: Order Comment: Speci men Type: BLOOD SPECIMEN [facility] Address: [address] [place], [place] [address] Performed By: #### 5 8410-2 #### [facility] [place] [id number] [address] [place] [address] [place] Nucleated RBC (Bld) [#/Vol] 10*3/uL Normal <0.01 [facility] Comment on above: Order Comment: Speci men Type: BLOOD SPECIMEN [facility] Address: [address] [place], [place] [address] Performed By: #### 5 8410-2 #### [facility] IA [id number] [address] [place] [address] [place] Nucleated RBC/100 WBC (Bld) [Ratio] 0.0 /100 WBC Normal [facility] Comment on above: Order Comment: Speci men Type: BLOOD SPECIMEN [facility] Address: [address] [place], [place] [address] Performed By: #### 5 8410-2 #### [facility] CLIA [id number] [address] [place] [address] [place] Platelet mean volume (Bld) [Entitic vol] 9.7 fL Normal 9.0-12.7 [facility] Comment on above: Order Comment: Speci men Type: BLOOD SPECIMEN [facility] Address: [address] [place], [place] [address] Performed By: #### 5 8410-2 #### [facility] [place] [id number] [address] [place] [address] [place] Platelets (Bld) [#/Vol] 341 10*3/uL Normal 150-400 [facility] Comment on above: Order Comment: Speci men Type: BLOOD SPECIMEN [facility] Address: [address] [place], [place] [address] Performed By: #### 5 8410-2 #### [facility] CLIA [id number] [address] [place] [address] [place] RBC (Bld) [#/Vol] 2.94 10*6/uL Low 3.90-5.20 [facility] Comment on above: Order Comment: Speci men Type: BLOOD SPECIMEN [facility] Address: [address] [place], [place] [address] Performed By: #### 5 8410-2 #### [facility] CLIA [id number] [facility] [place] [address] [facility] WBC (Bld) [#/Vol] 4.94 10*3/uL Normal 3.70-11.00 [facility] Comment on above: Order Comment: Speci men Type: BLOOD SPECIMEN [facility] Address: [address] [place] [address] Performed By: #### 5 8410-2 #### [facility] CLIA [id number] [address] [place] [address] [facility] CONSULTon 08-12-2022 CONSULT HNO ID: [id number] Author: Jordan Monzon PA-C Service: Pain Management Author Type: Physician Unix System Administrator Type: Consults Filed: 08/12/2022 2:17 PM Note Text: PAIN MANAGEMENT CONSULT -- [facility] PATIENT NAME: Melina Díaz DATE of SERVICE: August 12, 2022 TIME of SERVICE:1:12 PM ATTENDING PROVIDER: Arnold Johnson MD PAIN MANAGEMENT SUMMARY: Mrs. Díaz is a 46 year old female admitted with an abdominal wall abscess -- patient is S/P drainage of the abscess earlier today. Patient follows with Dr. Echeverria (Pain Management) as an outpatient for chronic pain syndrome, generalized abdominal pain, and intercostal neuralgia. Plan is as follows: D/C IV Dilaudid. Start oxycodone 5-10 mg PO q4h PRN moderate-severe pain today. Reduce to 5 mg PO q6h PRN moderate-severe pain tomorrow. Continue Tylenol as ordered. Patient can D/C on oxycodone 5 mg PO q6h PRN pain x 2 days, then resume her opioid taper per Dr. Echeverria's instructions. Follow up with Dr. Echeverria as an outpatient. DIAGNOSES: Chronic pain syndrome. Generalized abdominal pain. Intercostal neuralgia. Post-op pain. Active Hospital Problems Diagnosis Date Noted Pelvic abscess in female 08/12/2022 Chronic pain syndrome 08/12/2022 Anemia 08/11/2022 Abdominal pain 06/26/2022 History of Gelacio-en-Y gastric bypass 06/16/2022 Acquired hypothyroidism 06/16/2022 Attention deficit hyperactivity disorder (ADHD) 02/20/2021 CHIEF COMPLAINT: Postoperative RLQ pain. HPI: Melina Díaz is a 46 year old year old female admitted on 08/11/2022 with a pelvic abscess. Consultation requested by Elin Crump PA-C for an opinion regarding POD14 gelacio-en-y at [facility] and RLL wedge resection. Admitted for abd wall abscess. severe pain. Pending IANDD. My final recommendations will be communicated back to the requesting provider by way of shared medical record. The patient is status post abdominal wall abscess incision and drainage earlier today. She describes a sharp, burning pain at the site of the IANDD that does not radiate. She currently rates it at 9/10. She does not identify any aggravating or alleviating factors.. As an outpatient, the patient follows with [facility] (Dr. Johann Echeverria) -- her last evaluation by Dr. Echeverria was on 08/08/22. At that time, Dr. Echeverria recommended an opioid taper, a trial of Xtampza ER XR 9 mg twice daily for 1 month, and a ramping dose of Effexor. She is currently on the Effexor 12.5 mg daily here. The patient was given a prescription for an oxycodone taper over 3 weeks on 08/05/22. Per his notes, she will not require liquid oxycodone. She will work on tapering the Xtampza ER next month. The patient's current inpatient analgesic regimen includes Tylenol 650 mg PO q6h PRN mild-moderate pain, Dilaudid 0.4 mg IV q4h PRN severe pain, Robaxin 750 mg PO TID. OARRS Report was reviewed. The patient has received 36 controlled substance prescriptions from 14 different providers in the past 2 years. The patient's most recent prescription was dispensed on 08/08/22 (oxycodone 5 mg, 25 tabs/21 days). Overdose Risk Score: 410. Current outpatient MME: 8.93 mg. PAST MEDICAL HISTORY: PAST MEDICAL HISTORY Diagnosis Date Breast mass 11/04/07 Right, biopsy benign Encounter for cosmetic surgery Endometriosis Excess skin of arm Fracture , ankle Localized adiposity Morbid obesity (HCC) Ovarian cyst induced hypertension Thyroid disorder PAST SURGICAL HISTORY: PAST SURGICAL HISTORY Procedure Laterality Date ASSIST ONLY x3 EGD multiple GASTRIC BYPASS HX 12/2021 conversion from gastruc sleeve LAPAROSCOPY SURG CHOLECYSTECTOMY 2005 Cholecystectomy, lap PAST SURGICAL HISTORY OF 10/28/2011 gastric sleeve PAST SURGICAL HISTORY OF 2011 excision of goiter PAST SURGICAL HISTORY OF thyroid mass removed REMOVAL STOMACH,GELACIO-EN-Y 07/29/2022 TOTAL ABDOMINAL HYSTERECT W/WO RMVL TUBE OVARY 05/01/2010-05/2011 Hysterectomy, partial uterus then completion ALLERGIES: ALLERGIES Allergen Reactions Gabapentin Angioedema Patient reports throat swelling with gabapentin. Tramadol Hives Adhesive Tape (Serina* Rash, Swelling, Itching Nsaids (Non-Steroid* Contraindication-Medical Surgical S/p gelacio en y gastric bypass Paxil [Paroxetine] Intolerance Gi upset Scopolamine Other: See Comments Blurred vision Tomato Intolerance Toradol [Ketorolac * Hives, Swelling CURRENT MEDICATIONS: Current Facility-Administered Medications: diphenhydrAMINE 25 mg injection (BENADRYL) ALPRAZolam 0.5 mg tab(s) (XANAX) dextroamphetamine-amphetam ine 20 mg tab(s) (ADDERALL) lactobacillus rhamnosus 10 billion cell (CULTURELLE) capsule senna-docusate 8.6-50 mg 1 tablet (SENNA-S) pantoprazole DR 40 mg tab(s) (PROTONIX) venlafaxine 12.5 mg tab(s) (EFFEXOR) methocarbamol 750 mg tab(s) (ROBAXIN) levothyroxine 50 mcg tab(s) ( (more content not included)... [facility] CONSULT HNO ID: [id number] Author: Elin Crump PA-C Service: General Surgery Author Type: Physician Unix System Administrator Type: Consults Filed: 08/12/2022 11:56 AM Note Text: -- Attestation signed by Kat Avila DO at 08/13/2022 9:44 AM Attending Note: Frost findings confirmed. Patient examined. Discussed with the physician technical services assistant and the patient. Plan as outlined. Seen during yesterday PM rounds. Agree with plans above. Dora Avila, -- SURGICAL SERVICES INITIAL CONSULT SERVICE DATE: 08/12/2022 SERVICE TIME: 914 REASON FOR CONSULT: Abdominal wall abscess at port site, POD#14 Gelacio-en-y REQUESTING PHYSICIAN: RAVI PARKER PRIMARY CARE PHYSICIAN: Sean Ruiz DO Subjective HISTORY OF PRESENT ILLNESS: Ms. Díaz is a 46 year old female, PMH obesity, gastric sleeve surgery in 2011 with conversion to bypass in 01/03 and subsequent revision on 07/29/22 Gelacio en Y, as well as vagotomy and RLL wedge resection also 07/29/22, chronic pain syndrome, ADHD, anxiety, hypothyroidism, anemia, migraines, severe GJ stricture (s/p dilation x2), endometriosis and kidney stone, who presented for Pain/redness over RLQ port site over past several days. Was started on Bactrim by her surgeon's office, but symptoms did not improve. Presented to ED, workup showed afebrile, VSS, normal WBC. CT showed, Complex fluid collection right lower quadrant ventral body wall in the adjacent deep abdominal musculature suspicious for abscess, Interval development of complex collection in the right posterior pelvis 3.1 x 2.6 x 2.9 cm. This is not confidently traced into the adjacent bowel loops and, therefore, felt to be separate from bowel loops and concerning for pelvic abscess. ED contacted [facility] for transfer, was accepted. Admitted to [facility], consulted for evaluation of port site abscess. Patient seen this AM. Reports significant RLQ pain at port site, uncontrolled by current regimen. She denies fevers/chills, SOB, chest pain (other than post-operative pain from her RLL wedge resection). Afebrile, VSS, normal WBC. PAST MEDICAL HISTORY Diagnosis Date Breast mass 11/04/07 Right, biopsy benign Encounter for cosmetic surgery Endometriosis Excess skin of arm Fracture , ankle Localized adiposity Morbid obesity (HCC) Ovarian cyst induced hypertension Thyroid disorder PAST SURGICAL HISTORY Procedure Laterality Date ASSIST ONLY x3 EGD multiple GASTRIC BYPASS HX 12/2021 conversion from gastruc sleeve LAPAROSCOPY SURG CHOLECYSTECTOMY 2005 Cholecystectomy, lap PAST SURGICAL HISTORY OF 10/28/2011 gastric sleeve PAST SURGICAL HISTORY OF 2011 excision of goiter PAST SURGICAL HISTORY OF thyroid mass removed REMOVAL STOMACH,GELACIO-EN-Y 07/29/2022 TOTAL ABDOMINAL HYSTERECT W/WO RMVL TUBE OVARY 05/01/2010-05/2011 Hysterectomy, partial uterus then completion FAMILY HISTORY Problem Relation Age of Onset COPD Mother Hypertension Mother other (hypoglycemia) Mother Emphysema Father Coronary Artery Disease Father Ischemic Heart Disease Father 58 s/p stents Hypertension Father Asthma Sister 1/2 sister with female cysts other (unkown) Sister BiPolar-Bulemia None Brother 1/2--unkown Thyroid Other 1st cousin - ? Grave's Social History Tobacco Use Smoking status: Never Smokeless tobacco: Never Vaping Use Vaping Use: Never used Substance Use Topics Alcohol use: Not Currently Drug use: No Comment: denies tx for drug/alcohol abuse in the past. NaCl 0.9% 2,000 mL iv bolus, 2,000 mL, INTRAVENOUS, ONCE, Gretel Roper APRN.MANAGER 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 ondansetron (PF) 8 mg injection (ZOFRAN), 8 mg, INTRAVENOUS, ONCE, Gretel Roper APRN.MANAGER 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 sulfamethoxazole-trimethop rim (BACTRIM DS) 800-160 mg per tablet, Take 1 tablet by mouth twice daily for 10 days., Disp: 6 tablet, Rfl: 0, 08/11/2022 lactobacillus rhamnosus (CULTURELLE) 10 billion cell capsule, Take 1 capsule by mouth once daily for 14 days., Disp: 14 capsule, Rfl: 0, 08/11/2022 oxyCODONE myristate (XTAMPZA ER) 9 mg CSpT, take 1 tab PO BID for severe pain for 1 month. This prescription should last at least 1 month. It will not be refilled early under any circumstances. By filling this prescription, the patient hereby agrees to abide completely by the [facility] opioid agreement in all aspects, Disp: 60 Each, Rfl: 0, 08/11/2022 venlafaxine (EFFEXOR) 25 mg tablet, Take 0.5 (one-half) tab PO in the morning x 7 days, then increase to Take 0.5 (one-half) tab PO BId x 7 days, then increase to 1 tab PO BID, Disp: 60 tablet, Rfl: 5, 08/11/2022 oxyCODONE IR (ROXICODONE) 5 mg immediate release tablet, Tapering Rx: Take 0.5 (one-half) to 1 (one) tab PO BID prn severe pain x 7 days, then take 0.5 (one-half) tab PO BID prn pain x 7 days, t (more content not included)... Normal [facility] CONSULT HNO ID: [id number] Author: Robin Terrell MD Service: Infectious Disease Author Type: Physician Type: Consults Filed: 08/12/2022 10:51 AM Note Text: INFECTIOUS DISEASE - INITIAL CONSULT Service Date: August 12, 2022 Service Time: 9:05 AM Patient Name: Melina Díaz Date of : 1975 SUBJECTIVE: Source of information: Patient Current [facility] records reviewed and summarized below Prior [facility] records reviewed and summarized below Provider requesting the consultation: Aronld Johnson MD Chief Complaint / Reason for Consult: Pelvic abscess Consultation requested by Dr. Arnold Johnson MD for an opinion regarding pelvic abscess. My final recommendations will be communicated back to the requesting physician by way of shared Medical record or letter to requesting physician via US mail. HPI: Melina Díaz is a 46 year old female Per note 06/20/2022 sleeve gastrectomy then was subsequently revised to a Gelacio-en-Y gastric bypass 12/2021, severe GJ stricture (s/p dilation x 2) Multiple prior admissions Admission to [place] (06/16 through 06/18): --- According to the discharge summary presented with abdominal pain, nausea, vomiting, diarrhea --- CT A/P with IV contrast (06/16): No acute findings within the abdomen and pelvis. 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 --- EGD 06/18, Gelacio-en-Y gastrojejunostomy with gastrojejunal anastomosis characterized by ulceration --- No fever --- No antibiotics given during admission Admission to [facility] (06/25 through 07/01/2022): --- According to the discharge summary, admitted with abdominal pain, worsening nausea, started on TPN --- CT A/P with IV contrast (06/25): Status post gastric bypass. Mild gastrojejunitis about the anastomosis, likely due to inflamed ulcer/marginal ulcer disease. --- No fever during admission --- No antibiotics given during admission Admission to [facility] 07/29 through 08/04/2022: --- OR (07/29): Laparoscopic revision of gastrojejunostomy --- OR (07/29): PROCEDURE PERFORMED: Right robotic-assisted vagotomy. Right robotic-assisted lower lobe wedge resection x 1. Right regional intercostal nerve block, interspaces 5 - 9. (Exparel). Right cryoanalgesia procedure, interspaces 5 - 7. (Total time 10 minutes). Right chest tube placement x 1 (#24-Kazakh) --- She was given cefazolin 07/29 --- No fever during admission --- Discharged on 08/04/2022 No TPN on discharge Eating, but not a lot On 08/07, noted RLQ laparoscopy incision pain, swollen. Then turned red on 08/08. Virtual visit surgeon on 08/08, placed on bactrim Area RLQ has not improved (gotten larger), so came to hospital Diarrhea (about 3-4 per day), headache, nausea, vomiting (when tried to eat 08/09 and 08/10). Fever (up to 101 F max), chills. Now admitted to [place] 08/11/2022 --- No fever on admission --- WBC 4.9 --- Exam in the ER noted right lower quadrant 5 cm area of induration, erythema, tender to palpation, without drainage --- Patient was accepted to [facility] but remained at [facility] while waiting for transfer Allergies: ALLERGIES Allergen Reactions Gabapentin Angioedema Patient reports throat swelling with gabapentin. Tramadol Hives Adhesive Tape (Serina* Rash, Swelling, Itching Nsaids (Non-Steroid* Contraindication-Medical Surgical S/p gelacio en y gastric bypass Paxil [Paroxetine] Intolerance Gi upset Scopolamine Other: See Comments Blurred vision Tomato Intolerance Toradol [Ketorolac * Hives, Swelling Current Antibiotics: Antibiotic / Dose / Interval Dates 1) vancomycin and Zosyn 2) 3) 4) 5) Current Medications: Current Facility-Administered Medications Medication Dose Route Frequency diphenhydrAMINE 25 mg injection (BENADRYL) 25 mg INTRAVENOUS q 6 H PRN ALPRAZolam 0.5 mg tab(s) (XANAX) 0.5 mg ORAL AT BEDTIME PRN dextroamphetamine-amphetam ine 20 mg tab(s) (ADDERALL) 20 mg ORAL BID miSOPROStol 200 mcg tab(s) (CYTOTEC) 200 mcg ORAL QID lactobacillus rhamnosus 10 billion cell (CULTURELLE) capsule 1 capsule ORAL DAILY senna-docusate 8.6-50 mg 1 tablet (SENNA-S) 1 tablet ORAL BID pantoprazole DR 40 mg tab(s) (PROTONIX) 40 mg ORAL DAILY (6 AM) venlafaxine 12.5 mg tab(s) (EFFEXOR) 12.5 mg ORAL DAILY methocarbamol 750 mg tab(s) (ROBAXIN) 750 mg ORAL TID levothyroxine 50 mcg tab(s) (SYNTHROID) 50 mcg ORAL DAILY (6 AM) sodium chloride 0.9 % (flush) 3-5 mL (BD POSIFLUSH) 3-5 mL INTRAVENOUS q 12 H NaCl 0.9% iv infusion 100 mL/hr INTRAVENOUS CONTINUOUS acetaminophen 650 mg tab(s) (TYLENOL) 650 mg ORAL q 6 H PRN prochlorperazine 10 mg injection (COMPAZINE) 10 mg INTRAVENOUS q 6 H PRN HYDROmorphone 0.4 mg injection (DILAUDID) 0.4 mg INTRAVENOUS q 4 H PRN NaCl 0.9% iv flush bag 20 mL INTRAVENOUS PRN iv contrast (radiolo (more content not included)... [facility] CONSULT PROGon 08-12-2022 CONSULT PROG HNO ID: [id number] Author: Penny Nazario RPh Service: Pharmacy Author Type: Pharmacist Type: Consult Progress Note Filed: 08/12/2022 9:59 AM Note Text: PHARMACY VANCOMYCIN DOSING NOTE Patient Name: Melina Díaz Admission Date: 08/11/2022 Date of Consult: 08/12/2022 Time of Consult: 9:13 AM Indication: Skin/Soft tissue infection Goal Range: 10-20 mcg/mL (10-15 per ID) RECOMMENDATIONS/PLAN: Pharmacy consulted for vancomycin dosing for Melina Díaz, a 46 year old, female who is being treated with vancomycin. 1. Patient is currently ordered Vancomycin 1.5 g IV q12h. Today is day 2 of therapy. 2. No vancomycin level has been drawn for this dosing regimen. 3. The present dose of vancomycin is the recommended dosage for this patient at this time. Continue therapy as prescribed. 4. The next vancomycin level will be ordered for 08/15 unless clinically indicated sooner. (Pharmacy will order) We will follow patient renal function, vancomycin levels and doses with you during the course of therapy. Additional recommendations will appear in follow up notes. If you have any questions, please contact pharmacy at [phone]. Age: [age] year old Allergies: ALLERGIES Allergen Reactions Gabapentin Angioedema Patient reports throat swelling with gabapentin. Tramadol Hives Adhesive Tape (Serina* Rash, Swelling, Itching Nsaids (Non-Steroid* Contraindication-Medical Surgical S/p gelacio en y gastric bypass Paxil [Paroxetine] Intolerance Gi upset Scopolamine Other: See Comments Blurred vision Tomato Intolerance Toradol [Ketorolac * Hives, Swelling Last 3 Encounter Wt Readings: Date: Wt: 08/11/2022 95.3 kg (210 lb 1.6 oz) 08/08/2022 94.3 kg (208 lb) 07/22/2022 92.1 kg (203 lb) Last 1 Encounter Ht Readings: Date: Ht: 08/11/2022 172.7 cm (5' 8 ) CrCl: 145.4 mL/min Temp (24hrs), Av.9 ?C (98.4 ?F), Min:36.5 ?C (97.7 ?F), Max:37.4 ?C (99.3 ?F) - Current Temp: 37.2 ?C (99 ?F) Labs BUN (mg/dL) Date Value 08/12/2022 6 (L) 08/11/2022 9 08/04/2022 15 Creatinine (mg/dL) Date Value 08/12/2022 0.59 08/11/2022 0.63 08/04/2022 0.54 (L) WBC (k/uL) Date Value 08/12/2022 4.94 08/11/2022 7.51 08/11/2022 7.85 Vancomycin Levels: No results found for: JENNA Harding Preceptor Addendum: I have reviewed the above information with the business continuity management director/resident or geology technician and agree with the assessment/plan described. Changes or additions to the note are indicated by italics and . Penny Nazario, PharmD (Pharmacist) 08/12/2022 9:57 AM Ext: [phone] [facility] ED PROV NOTEon 08-12-2022 ED PROV NOTE HNO ID: [id number] Author: Nilton Holloway DO Service: Emergency Medicine Author Type: Physician Type: ED Provider Notes Filed: 08/12/2022 12:18 AM Note Text: ED CONTINUATION OF CARE NOTE Code Status: Full Code Assumed care from: Dr. Ca Presentation / Findings / Interventions / Plan / Items to Follow Up: To be boarded to the hospitalist service at 0030. Patient is admitted for boarding. ED Course as of 08/12/22 0021 Nilton Holloway's Documentation Tue Aug 12, 2022 0019 EPOC Lactate (POC) Clinical Impressions as of 08/12/22 002 Post-operative infection Pelvic abscess in female Right lower quadrant pain SIGNATURE: Nilton Holloway DO PATIENT NAME: Melina Díaz DATE: August 12, 2022 TIME: 12:18 AM PAGER/CONTACT #: Nilton Holloway DO 08/12/2217 Nilton Holloway DO 08/12/2217 [facility] Fungus Spec Culton 2 Fungus identified Cx Nom (Unsp spec) CULTURE, FUNGAL: No Fungus isolated after 28 days [facility] Comment on above: Performed By: #### 6 [phone] ####[facility] LABCLIA [id number] [place] [address] [place] HISTORY PHYSICALon 2 HISTORY PHYSICAL HNO ID: [id number] Author: Ravi Parker APRN.CNP Service: Hospital Medicine Author Type: Nurse Practitioner Type: HANDP Filed: 08/12/2022 2:28 AM Note Text: -- Attestation signed by Fiorella Valles MD at 08/12/2022 5:39 AM chart reviewed renannue abx await transfer Fiorella Valles MD August 12, 2022 5:39 AM -- DEPARTMENT OF HOSPITAL MEDICINE HISTORY AND PHYSICAL EXAM SERVICE DATE: 08/12/2022 Code Status: Not on file SERVICE TIME: 2:00 AM Primary Care Physician: Sean Ruiz, DO NIGHT AND WEEKEND COVERAGE: MAGGY COVERAGE: Days: [phone], please contact via Pressgram Nights: [phone] - floor: please page CC Hospitalist night cover [phone] - 4th floor: please page CC Hospitalist night cover [phone] - 5th floor: please page CC Hospitalist night cover [phone] Subjective CHIEF COMPLAINT: redness and tenderness RLQ, concern wound infection HPI: This is a 46 year old female who presents with PMH of obesity, gastric sleeve surgery in 2011 with conversion to bypass in 01/03 and subsequent revision on 07/29 Gelacio en Y, chronic pain syndrome, ADHD, anxiety, hypothyroidism, anemia, migraines, severe GJ stricture (s/p dilation x2), endometriosis and kidney stone. Reports increasing pain and redness RLQ over the last few days , started on Bactrim for possible infection without improvement so came to ED. Reports N/V/D, poor appetite. Denies fever. In ED Afebrile on arrival, normal lactate, no leukocytosis. Stable anemia. Blood and urine cultures sent K 3.5. CT showed concern for abscess (see report below) Patient started on Vanc and zosyn, medicated for symptoms. Accepted at [facility] for transfer to their surgical team, however no bed currently available PAST MEDICAL HISTORY Diagnosis Date Breast mass 11/04/07 Right, biopsy benign Encounter for cosmetic surgery Endometriosis Excess skin of arm Fracture , -2010 ankle Localized adiposity Morbid obesity (HCC) Ovarian cyst induced hypertension Thyroid disorder PAST SURGICAL HISTORY Procedure Laterality Date ASSIST ONLY x3 EGD multiple GASTRIC BYPASS HX 12/2021 conversion from gastruc sleeve LAPAROSCOPY SURG CHOLECYSTECTOMY 2004 Cholecystectomy, lap PAST SURGICAL HISTORY OF 10/28/2011 gastric sleeve PAST SURGICAL HISTORY OF 2011 excision of goiter PAST SURGICAL HISTORY OF thyroid mass removed REMOVAL STOMACH,GELACIO-EN-Y 07/29/2022 TOTAL ABDOMINAL HYSTERECT W/WO RMVL TUBE OVARY 05/01/2010-05/2011 Hysterectomy, partial uterus then completion FAMILY HISTORY Problem Relation Age of Onset COPD Mother Hypertension Mother other (hypoglycemia) Mother Emphysema Father Coronary Artery Disease Father Ischemic Heart Disease Father 58 s/p stents Hypertension Father Asthma Sister 1/2 sister with female cysts other (unkown) Sister BiPolar-Bulemia None Brother 1/2--unkown Thyroid Other 1st cousin - ? Grave's Social History Tobacco Use Smoking status: Never Smokeless tobacco: Never Vaping Use Vaping Use: Never used Substance Use Topics Alcohol use: Not Currently Drug use: No Comment: denies tx for drug/alcohol abuse in the past. PRIOR TO ADMISSION MEDICATIONS: (Not in a hospital admission) ALLERGIES Allergen Reactions Gabapentin Angioedema Patient reports throat swelling with gabapentin. Tramadol Hives Adhesive Tape (Serina* Rash, Swelling, Itching Nsaids (Non-Steroid* Contraindication-Medical Surgical S/p gelacio en y gastric bypass Paxil [Paroxetine] Intolerance Gi upset Scopolamine Other: See Comments Blurred vision Tomato Intolerance Toradol [Ketorolac * Hives, Swelling REVIEW OF SYSTEM: PAIN ASSESSMENT: abdominal pain, RLQ, currently 7 out of 10. Chronic pain, sees pain managment GENERAL: decreased appetite HEENT: denies headache or URI symptoms NECK: Negative for lumps, goiter, pain and significant neck swelling RESPIRATORY: Negative for cough, hemoptysis, wheezing, COPD, dyspnea or shortness of breath CARDIOVASCULAR: Negative for chest pain, leg swelling, hypertension, CHF or palpitations GI: See HPI : No history of dysuria, frequency or incontinence MUSCULOSKELETAL: Negative for joint pain or swelling, back pain or muscle pain SKIN: Negative for lesions, rash, and itching PSYCH: anxiety, ADHD HEMATOLOGY/LYMPHOLOGY: Negative for prolonged bleeding, bruising easily or swollen nodes ENDOCRINE: on levothyroxine NEURO: No history of headaches, syncope, paralysis, seizures or tremors Objective PHYSICAL EXAM: BP 112/56 Pulse 77 Temp (Src) 99.3 (Oral) Resp 18 Ht 5' 8 (1.73m) Wt 206 lb (93.4kg) SpO2 97% BMI 31.33 kg/(m2). O2 Therapy: Room Air Physical Exam Performed: GENERAL: Alert, no distress, cooperativ (more content not included)... Normal [facility] PT panel Coag (PPP)on 2021 INR Coag (PPP) [Relative time] 1.0 {INR} Normal 0.9-1.3 [facility] Comment on above: Order Comment: Speci men Type: BLOOD SPECIMENOrdering Facility: [facility] Address: [address] [place] [phone] Result Comment: Shannen min K Antagonist (VKA) Therapeutic Range: INR 2 to 3 (Target INR of 2.5) Note: For patients treated with VKA drugs, such as warfarin, the [employer] 2012 Guideline recommends a therapeutic INR range of 2 to 3 (target INR of 2.5). This recommendation includes high-risk patients with antiphospholipid syndrome with previous arterial or venous thromboembolism, current-generation mechanical or bioprosthetic aortic heart valve replacement. Note: Patients with mechanical aortic valve replacement and additional risk factors for thromboembolic events (atrial fibrillation, previous thromboembolism, LV dysfunction, hypercoagulable conditions) or an older generation mechanical AVR (i.e., ball in-Cage) or any mechanical MVR should have a INR therapeutic range of 2.5 to 3.5 (target INR of 3). Noy MCCAIN, et al. Chest 2012, 141:7S-47S Deangelo DUGGAN et al. [facility] 2017, 70: 252-289 Performed By: #### 3 4528-0 ####[facility] LABORATORYCLIA [id number] [facility] [place] [address] [place] PT Coag (PPP) [Time] 10.9 s Normal 9.7-13.0 [facility] Comment on above: Order Comment: Speci men Type: BLOOD SPECIMENOrdering Facility: [facility] Address: [address] [address] Performed By: #### 3 4528-0 ####[facility] [id number] [facility].[address] [place] SARS-CoV-2 RNA Resp Ql MEAGAN+p robeon 08-12-2022 SARS-CoV-2 (COVID-19) RNA MEAGAN+probe Ql (Resp) COVID 19 RESULT: SARS-CoV-2 (Agent of COVID-19) Not Detected by RT-PCR or equivalent method. This test has been authorized by FDA under an Emergency Use Authorization (EUA). Normal [facility] Comment on above: Performed By: #### 9 4500-6 ####[facility] [id number] [facility] [place] [address] [place] Bacteria Bld Culton 08-11-20 22 Bacteria identified Cx Nom (Bld) CULTURE, BLOOD: No growth 5 days Normal [facility] Comment on above: Performed By: #### 6 00-7 ####[facility] LABCLIA [id number] [address] [place] Bacteria identified Cx Nom (Bld) CULTURE, BLOOD: No growth 5 days Normal [facility] Comment on above: Performed By: #### 6 00-7 ####[facility] LABIA [id number] [place] [address] [place] CBC W Auto Differential pane l (Bld)on 08-11-2022 Basophils (Bld) [#/Vol] 0.06 10*3/uL Normal <0.11 [facility] Comment on above: Order Comment: Speci men Type: BLOOD SPECIMENOrdering Facility: [facility] Address: [address] [phone] Performed By: #### 5 7021-8 ####[facility] LABORATORYCLIA [id number] [place] [address] [place] Basophils/100 WBC (Bld) 0.8 % Normal [facility] Comment on above: Order Comment: Speci men Type: BLOOD SPECIMENOrdering Facility: [facility] Address: [address] [address] Performed By: #### 5 7021-8 ####[facility] LABORATORYIA [id number] [place] [address] [place] Differential cell count method Nom (Bld) Auto Normal [facility] Comment on above: Order Comment: Speci men Type: BLOOD SPECIMENOrdering Facility: [facility] Address: [address] [address] Performed By: #### 5 7021-8 ####[facility] CENTERIA [id number] [place] [address] [place] Eosinophils (Bld) [#/Vol] 0.15 10*3/uL Normal <0.46 [facility] Comment on above: Order Comment: Speci men Type: BLOOD SPECIMENOrdering Facility: [facility] Address: [address] [address] Performed By: #### 5 7021-8 ####[facility] LABORATORYIA [id number] [place] [address] [place] Eosinophils/100 WBC (Bld) 2.0 % Normal [facility] Comment on above: Order Comment: Speci men Type: BLOOD SPECIMENOrdering Facility: [facility] Address: [address] [address] Performed By: #### 5 7021-8 ####[facility] LABORATORYIA [id number] [address] [place] Erythrocyte distribution width (RBC) [Ratio] 14.2 % Normal 11.5-15.0 [facility] Comment on above: Order Comment: Speci men Type: BLOOD SPECIMENOrdering Facility: [facility] Address: [address] [address] Performed By: #### 5 7021-8 ####[facility]ENTER[facility] [id number] [place] [address] [place] Hematocrit (Bld) [Volume fraction] 29.2 % Low 36.0-46.0 [facility] Comment on above: Order Comment: Speci men Type: BLOOD SPECIMENOrdering Facility: [facility] Address: [address] [address] Performed By: #### 5 7021-8 ####[facility] CENTER[facility] [id number] [place] [address] [place] Hemoglobin (Bld) [Mass/Vol] 9.5 g/dL Low 11.5-15.5 [facility] Comment on above: Order Comment: Speci men Type: BLOOD SPECIMENOrdering Facility: [facility] Address: [address] [address] Performed By: #### 5 7021-8 ####[facility] [id number] [place] [address] [place] Immature granulocytes (Bld) [#/Vol] 0.03 10*3/uL Normal <0.10 [facility] Comment on above: Order Comment: Speci men Type: BLOOD SPECIMENOrdering Facility: [facility] Address: [address] [address] Performed By: #### 5 7021-8 ####[facility]ENTER[facility] [id number] [place] [address] [place] Immature granulocytes/100 WBC (Bld) 0.4 % Normal [facility] Comment on above: Order Comment: Speci men Type: BLOOD SPECIMENOrdering Facility: [facility] Address: [address] [address] Performed By: #### 5 7021-8 ####[facility] LABORATORYIA [id number] [place] [address] [place] Lymphocytes (Bld) [#/Vol] 2.03 10*3/uL Normal 1.00-4.00 [facility] Comment on above: Order Comment: Speci men Type: BLOOD SPECIMENOrdering Facility: [facility] Address: [address] [address] Performed By: #### 5 7021-8 ####[facility] LABORATORYIA [id number] [address] OF [facility] Lymphocytes/100 WBC (Bld) 27.0 % Normal [facility] Comment on above: Order Comment: Speci men Type: BLOOD SPECIMENOrdering Facility: [facility] Address: [address] [address] Performed By: #### 5 7021-8 ####[facility] CENTER[facility] [id number] [address] [place] MCH (RBC) [Entitic mass] 29.0 pg Normal 26.0-34.0 [facility] Comment on above: Order Comment: Speci men Type: BLOOD SPECIMENOrdering Facility: [facility] Address: [address] [address] Performed By: #### 5 7021-8 ####[facility]ENTER[facility] [id number] [address] [place] MCHC (RBC) [Mass/Vol] 32.5 g/dL Normal 30.5-36.0 [facility] Comment on above: Order Comment: Speci men Type: BLOOD SPECIMENOrdering Facility: [facility] Address: [address] [address] Performed By: #### 5 7021-8 ####[facility] CENTERIA [id number] [address] [place] MCV (RBC) [Entitic vol] 89.0 fL Normal 80.0-100.0 [facility] Comment on above: Order Comment: Speci men Type: BLOOD SPECIMENOrdering Facility: [facility] Address: [address] [address] Performed By: #### 5 7021-8 ####[facility] LABORATORYCLIA [id number] [facility] [place] [address] [place] Monocytes (Bld) [#/Vol] 0.43 10*3/uL Normal <0.87 [facility] Comment on above: Order Comment: Speci men Type: BLOOD SPECIMENOrdering Facility: [facility] Address: [address] [address] Performed By: #### 5 7021-8 ####[facility] LABORATORYCLIA [id number] [place] [address] [place] Monocytes/100 WBC (Bld) 5.7 % Normal [facility] Comment on above: Order Comment: Speci men Type: BLOOD SPECIMENOrdering Facility: [facility] Address: [address] [place] [address] Performed By: #### 5 7021-8 ####[facility]ENTERIA [id number] [place] [id number] [place] Neutrophils (Bld) [#/Vol] 4.81 10*3/uL Normal 1.45-7.50 [facility] Comment on above: Order Comment: Speci men Type: BLOOD SPECIMENOrdering Facility: [facility] Address: [address] [place] [address] Performed By: #### 5 7021-8 ####[facility]ENTERIA [id number] [place] [address] [place] Neutrophils/100 WBC (Bld) 64.1 % Normal [facility] Comment on above: Order Comment: Speci men Type: BLOOD SPECIMENOrdering Facility: [facility] Address: [address] [address] Performed By: #### 5 7021-8 ####[facility] LABORATORYIA [id number] [place] [address] [place] Nucleated RBC (Bld) [#/Vol] 10*3/uL Normal <0.01 [facility] Comment on above: Order Comment: Speci men Type: BLOOD SPECIMENOrdering Facility: [facility] Address: [address] Performed By: #### 5 7021-8 ####[facility] [id number] [place] [id number] [place] Nucleated RBC/100 WBC (Bld) [Ratio] 0.0 /100 WBC Normal [facility] Comment on above: Order Comment: Speci men Type: BLOOD SPECIMENOrdering Facility: [facility] Address: [address] [address] Performed By: #### 5 7021-8 ####[facility]ENTERIA [id number] [place] [address] [place] Platelet mean volume (Bld) [Entitic vol] 9.3 fL Normal 9.0-12.7 [facility] Comment on above: Order Comment: Speci men Type: BLOOD SPECIMENOrdering Facility: [facility] Address: [address] [address] Performed By: #### 5 7021-8 ####[facility]IA [id number] [place] [address] [place] Platelets (Bld) [#/Vol] 414 10*3/uL High 150-400 [facility] Comment on above: Order Comment: Speci men Type: BLOOD SPECIMENOrdering Facility: [facility] Address: [address] Performed By: #### 5 7021-8 ####[facility]ENTERIA [id number] [place] [address] [place] RBC (Bld) [#/Vol] 3.28 10*6/uL Low 3.90-5.20 [facility] Comment on above: Order Comment: Speci men Type: BLOOD SPECIMENOrdering Facility: [facility] Address: [address] Performed By: #### 5 7021-8 ####[facility] LABORATORYIA [id number] [place] [id number] [place] WBC (Bld) [#/Vol] 7.51 10*3/uL Normal 3.70-11.00 [facility] Comment on above: Order Comment: Speci men Type: BLOOD SPECIMENOrdering Facility: [facility] Address: [address] [address] Performed By: #### 5 7021-8 ####[facility] LABORATORYCLIA [id number] [place] [address] [place] Basophils (Bld) [#/Vol] 0.07 10*3/uL Normal <0.11 [facility] Comment on above: Order Comment: Speci men Type: BLOOD SPECIMENOrdering Facility: [facility] Address: [address] [address] Performed By: #### 5 7021-8, 87512-6 ####[facility] LABORATORYCLIA [id number] [place] [address] [place] Basophils/100 WBC (Bld) 0.9 % Normal [facility] Comment on above: Order Comment: Speci men Type: BLOOD SPECIMENOrdering Facility: [facility] Address: [address] [place] [address] Performed By: #### 5 7021-8, 07413-7 ####[facility] LABORATORYCLIA [id number] [place] [address] [place] Differential cell count method Nom (Bld) Auto Normal [facility] Comment on above: Order Comment: Speci men Type: BLOOD SPECIMENOrdering Facility: [facility] Address: [address] [address] Performed By: #### 5 7021-8, 18803-6 ####[facility] LABORATORYCLIA [id number] [place] [address] [place] Eosinophils (Bld) [#/Vol] 0.16 10*3/uL Normal <0.46 [facility] Comment on above: Order Comment: Speci men Type: BLOOD SPECIMENOrdering Facility: [facility] Address: [address] [place], [place] [address] Performed By: #### 5 7021-8, 29631-9 ####[facility] LABORATORYCLIA [id number] [place] [address] [place] Eosinophils/100 WBC (Bld) 2.0 % Normal [facility] Comment on above: Order Comment: Speci men Type: BLOOD SPECIMENOrdering Facility: [facility] Address: [address] [place] [address] Performed By: #### 5 7021-8, 04667-4 ####[facility] LABORATORYCLIA [id number] [place] [address] [place] Erythrocyte distribution width (RBC) [Ratio] 14.4 % Normal 11.5-15.0 [facility] Comment on above: Order Comment: Speci men Type: BLOOD SPECIMENOrdering Facility: [facility] Address: [address] [place] [address] Performed By: #### 5 7021-8, 14692-7 ####[facility], SACRAMENTOCLIA [id number] [place] [address] [place] Hematocrit (Bld) [Volume fraction] 30.4 % Low 36.0-46.0 [facility] Comment on above: Order Comment: Speci men Type: BLOOD SPECIMENOrdering Facility: [facility] Address: [address] [place] [address] Performed By: #### 5 7021-8, 56687-4 ####[facility] LABORATORYCLIA [id number] [place] [address] [place] Hemoglobin (Bld) [Mass/Vol] 9.8 g/dL Low 11.5-15.5 [facility] Comment on above: Order Comment: Speci men Type: BLOOD SPECIMENOrdering Facility: [facility] Address: [address] [place] [address] Performed By: #### 5 7021-8, 02511-1 ####[facility] LABORATORYCLIA [id number] [place] [address] [place] Immature granulocytes (Bld) [#/Vol] 10*3/uL Normal <0.10 [facility] Comment on above: Order Comment: Speci men Type: BLOOD SPECIMENOrdering Facility: [facility] Address: [address] Performed By: #### 5 7021-8, 92465-5 ####[facility] LABORATORYCLIA [id number] [place] [address] [place] Immature granulocytes/100 WBC (Bld) 0.3 % Normal [facility] Comment on above: Order Comment: Speci men Type: BLOOD SPECIMENOrdering Facility: [facility] Address: [address] Performed By: #### 5 7021-8, 31532-1 ####[facility] LABORATORYCLIA [id number] [place] [address] [place] Lymphocytes (Bld) [#/Vol] 2.33 10*3/uL Normal 1.00-4.00 [facility] Comment on above: Order Comment: Speci men Type: BLOOD SPECIMENOrdering Facility: [facility] Address: [address] Performed By: #### 5 7021-8, 75271-9 ####[facility] LABORATORYIA [id number] [place], [place] [address] [place] [address] [place] Lymphocytes/100 WBC (Bld) 29.7 % Normal [facility] Comment on above: Order Comment: Speci men Type: BLOOD SPECIMENOrdering Facility: [facility] Address: [address] Performed By: #### 5 7021-8, 31375-6 ####[facility] LABORATORYIA [id number] [place] [address] [place] MCH (RBC) [Entitic mass] 28.9 pg Normal 26.0-34.0 [facility] Comment on above: Order Comment: Speci men Type: BLOOD SPECIMENOrdering Facility: [facility] Address: [address] [id number] Performed By: #### 5 7021-8, 57631-5 ####[facility] LABORATORYCLIA [id number] [place] [id number] [place] MCHC (RBC) [Mass/Vol] 32.2 g/dL Normal 30.5-36.0 [facility] Comment on above: Order Comment: Speci men Type: BLOOD SPECIMENOrdering Facility: [facility] Address: [address] Performed By: #### 5 7021-8, 08354-6 ####[facility] CENTERIA [id number] [place] [address] [place] MCV (RBC) [Entitic vol] 89.7 fL Normal 80.0-100.0 [facility] Comment on above: Order Comment: Speci men Type: BLOOD SPECIMENOrdering Facility: [facility] Address: [address] Performed By: #### 5 7021-8, 29439-6 ####[facility] CENTERIA [id number] [place] [address] [place] Monocytes (Bld) [#/Vol] 0.58 10*3/uL Normal <0.87 [facility] Comment on above: Order Comment: Speci men Type: BLOOD SPECIMENOrdering Facility: [facility] Address: [address] Performed By: #### 5 7021-8, 24963-0 ####[facility]ENTERIA [id number] [address] [place] Monocytes/100 WBC (Bld) 7.4 % Normal [facility] Comment on above: Order Comment: Speci men Type: BLOOD SPECIMENOrdering Facility: [facility] Address: [address] Performed By: #### 5 7021-8, 97364-8 ####[facility] LABORATORYIA [id number] [place] [address] [place] Neutrophils (Bld) [#/Vol] 4.69 10*3/uL Normal 1.45-7.50 [facility] Comment on above: Order Comment: Speci men Type: BLOOD SPECIMENOrdering Facility: [facility] Address: [address] [address] Performed By: #### 5 7021-8, 83715-5 ####[facility] LABORATORYCLIA [id number] [place] [address] [place] Neutrophils/100 WBC (Bld) 59.7 % Normal [facility] Comment on above: Order Comment: Speci men Type: BLOOD SPECIMENOrdering Facility: [facility] Address: [address] [address] Performed By: #### 5 7021-8, 49117-3 ####[facility] LABORATORYCLIA [id number] [place] [address] [place] Nucleated RBC (Bld) [#/Vol] 10*3/uL Normal <0.01 [facility] Comment on above: Order Comment: Speci men Type: BLOOD SPECIMENOrdering Facility: [facility] Address: [address] [address] Performed By: #### 5 7021-8, 00437-3 ####[facility]ORATORYCLIA [id number] [place] [address] [place] Nucleated RBC/100 WBC (Bld) [Ratio] 0.0 /100 WBC Normal [facility] Comment on above: Order Comment: Speci men Type: BLOOD SPECIMENOrdering Facility: [facility] Address: [address] [address] Performed By: #### 5 7021-8, 71923-4 ####[facility] LABORATORYCLIA [id number] [place] [address] [place] Platelet mean volume (Bld) [Entitic vol] 9.6 fL Normal 9.0-12.7 [facility] Comment on above: Order Comment: Speci men Type: BLOOD SPECIMENOrdering Facility: [facility] Address: [address] Performed By: #### 5 7021-8, 56495-7 ####[facility] CENTERIA [id number] [place] [address] [facility] [place] Platelets (Bld) [#/Vol] 446 10*3/uL High 150-400 [facility] Comment on above: Order Comment: Speci men Type: BLOOD SPECIMENOrdering Facility: [facility] Address: [address] [address] Performed By: #### 5 7021-8, 60418-7 ####[facility] CENTERIA [id number] [place] [id number] [place] RBC (Bld) [#/Vol] 3.39 10*6/uL Low 3.90-5.20 [facility] Comment on above: Order Comment: Speci men Type: BLOOD SPECIMENOrdering Facility: [facility] Address: [address] [address] Performed By: #### 5 7021-8, 56107-0 ####[facility] CENTERIA [id number] [place] [id number] [facility] [place] WBC (Bld) [#/Vol] 7.85 10*3/uL Normal 3.70-11.00 [facility] Comment on above: Order Comment: Speci men Type: BLOOD SPECIMENOrdering Facility: [facility] Address: [address] [place] [address] Performed By: #### 5 7021-8, 41838-0 ####[facility] CENTERIA [id number] [place] [address] [facility] CONSULT PROGon 08-11-2022 CONSULT PROG HNO ID: [id number] Author: Betty Hernandez RPh Service: Pharmacy Author Type: Pharmacist Type: Consult Progress Note Filed: 08/11/2022 8:22 PM Note Text: PHARMACY VANCOMYCIN DOSING NOTE Patient Name: Melina Díaz Admission Date: 08/11/2022 Date of Consult: 08/11/2022 Time of Consult: 8:22 PM Indication: Skin/Soft tissue infection Goal Range: 10-20 mcg/mL RECOMMENDATIONS/PLAN: Pharmacy consulted for vancomycin dosing for Melina Díaz, a 46 year old, female who is being treated with vancomycin. 1. Patient is currently ordered Vancomycin 1.5 g IV q12h. Today is day 1 of therapy. 2. No vancomycin level has been drawn for this dosing regimen. 3. The present dose of vancomycin is the recommended dosage for this patient at this time. Continue therapy as prescribed. 4. The next vancomycin level will be ordered for 08/15 unless clinically indicated sooner. (Pharmacy will order) We will follow patient renal function, vancomycin levels and doses with you during the course of therapy. Additional recommendations will appear in follow up notes. If you have any questions, please contact pharmacy at [phone]. Age: [age] year old Allergies: ALLERGIES Allergen Reactions Gabapentin Angioedema Patient reports throat swelling with gabapentin. Tramadol Hives Adhesive Tape (Serina* Rash, Swelling, Itching Nsaids (Non-Steroid* Contraindication-Medical Surgical S/p gelacio en y gastric bypass Paxil [Paroxetine] Intolerance Gi upset Scopolamine Other: See Comments Blurred vision Tomato Intolerance Toradol [Ketorolac * Hives, Swelling Last 3 Encounter Wt Readings: Date: Wt: 08/11/2022 93.4 kg (206 lb) 08/08/2022 94.3 kg (208 lb) 07/22/2022 92.1 kg (203 lb) Last 1 Encounter Ht Readings: Date: Ht: 08/11/2022 172.7 cm (5' 8 ) CrCl: 134 mL/min Temp (24hrs), Av.7 ?C (98 ?F), Min:36.7 ?C (98 ?F), Max:36.7 ?C (98 ?F) - Current Temp: 36.7 ?C (98 ?F) Labs BUN (mg/dL) Date Value 08/11/2022 9 08/04/2022 15 08/03/2022 19 Creatinine (mg/dL) Date Value 08/11/2022 0.63 08/04/2022 0.54 (L) 08/03/2022 0.54 (L) WBC (k/uL) Date Value 08/11/2022 7.51 08/11/2022 7.85 08/04/2022 6.15 Vancomycin Levels: No results found for: Betty Negrete, [facility] CT ABD/PEL W IVCONon 022 CT ABD/PEL W IVCON * * *Final Report* * * DATE OF EXAM: Aug 11 2022 7:34PM [facility] 0530 - CT ABD/PEL W IVCON / PROCEDURE REASON: Nausea/vomiting * * * * Physician Interpretation * * * * EXAMINATION: CT ABD/PEL W IVCON Exam Date/Time: 08/11/2022 7:34 PM CLINICAL HISTORY: Nausea/vomiting RLQ pain and swelling, N/V/D TECHNIQUE: CT of the abdomen and pelvis was performed using standard technique, scanning from just above the dome of the diaphragm to the symphysis pubis. Contrast: IV: 100 ml of Omnipaque 350 : ml of Dose-Length Product (DLP): 770 mGy*cm CT Dose Reduction Employed: Automated exposure control (AEC) COMPARISON: 06/25/2022 RESULT: Lower thorax: Minimal bibasilar atelectasis. Minimal-sized sliding hernia. Liver: Unremarkable and without evidence for focal mass. Biliary: Mild prominence of postcholecystectomy biliary tree, most likely secondary to chronic surgical absence the gallbladder. Spleen/pancreas/adrenal glands: Stable 1.4 cm splenic cyst. Spleen otherwise unremarkable. The pancreas and bilateral adrenal glands are unremarkable. Kidneys: Stable cystlike hypodensities in the left kidney, which are too small to reliably characterize, likely cysts. No enhancing mass or hydronephrosis in either kidney. GI tract: Changes of prior gastric bypass are noted. Subtle stranding adjacent to the gastrojejunal anastomosis is previously described, although findings appear to be improved. No evidence of bowel obstruction. The appendix is not confidently identified. Pelvis: There is some beam hardening artifact limiting detailed evaluation of the pelvis. There appears to be a complex collection in the posterior right pelvis measuring 3.2 x 4.1 cm, new from the prior study with adjacent phlegmonous fat stranding. As best determined this does not convincingly communicate with bowel loops and therefore suspicious for abscess. Unremarkable CT appearance of the urinary bladder . The uterus is surgically absent. Lymphovascular: No abdominopelvic lymphadenopathy, by size criteria. Normal caliber abdominal aorta . Patent, normal caliber portal vein. Mesentry/Peritoneum/Retrop eritoneum: No ascites, pneumoperitoneum or suspicious mass. Soft Tissues/Bones: No interval development of complex collection in the right lower quadrant ventral body wall measuring 3.1 x 2.6 cm there is adjacent subcutaneous fat stranding. Just deep to this within the abdominal musculature is a smaller 1.4 x 1.2 cm collection. Findings are suspicious for potential abscess and correlation with exam needed. IMPRESSION: Complex fluid collection right lower quadrant ventral body wall in the adjacent deep abdominal musculature suspicious for abscess. Recommend correlation with exam. Interval development of complex collection in the right posterior pelvis 3.1 x 2.6 x 2.9 cm. This is not confidently traced into the adjacent bowel loops and, therefore, felt to be separate from bowel loops and concerning for pelvic abscess. Mild persisting, although significantly improved, gastrojejunitis, with decreased conspicuity of the tiny adjacent marginal ulcer, as previously described. Billing Assistant[facility] Transcribe Date/Time: Aug 11 2022 7:45P Dictated by : SAIMA SPRINGER MD This examination was interpreted and the report reviewed and electronically signed by: SAIMA SPRINGER MD on Aug 11 2022 8:07PM EST [id number] Normal [facility] Comprehensive metabolic 2000 panelon 08-11-2022 Albumin [Mass/Vol] 3.8 g/dL Low 3.9-4.9 [facility] Comment on above: Order Comment: Speci men Type: BLOOD SPECIMENOrdering Facility: [facility] Address: [address] [address] Performed By: #### 2 4323-8 ####[facility] LABORATORYCLIA [id number] [facility] [place] [address] [place] ALP [Catalytic activity/Vol] 90 U/L Normal 34-123 [facility] Comment on above: Order Comment: Speci men Type: BLOOD SPECIMENOrdering Facility: [facility] Address: [address] [address] Performed By: #### 2 4323-8 ####[facility] LABORATORYCLIA [id number] [place] [address] [place] ALT [Catalytic activity/Vol] 28 U/L Normal 7-38 [facility] Comment on above: Order Comment: Speci men Type: BLOOD SPECIMENOrdering Facility: [facility] Address: [address] [address] Performed By: #### 2 4323-8 ####[facility] LABORATORYCLIA [id number] [place] [address] [place] Anion gap [Moles/Vol] 13 mmol/L Normal 9-18 [facility] Comment on above: Order Comment: Speci men Type: BLOOD SPECIMENOrdering Facility: [facility] Address: [address] [address] Performed By: #### 2 4323-8 ####[facility] CENTERIA [id number] [place] [address] [place] AST [Catalytic activity/Vol] 16 U/L Normal 13-35 [facility] Comment on above: Order Comment: Speci men Type: BLOOD SPECIMENOrdering Facility: [facility] Address: [address] [place] [address] Performed By: #### 2 4323-8 ####[facility] CENTERIA [id number] [place] [address] [place] Bilirubin [Mass/Vol] 0.2 mg/dL Normal 0.2-1.3 [facility] Comment on above: Order Comment: Speci men Type: BLOOD SPECIMENOrdering Facility: [facility] Address: [address] [address] Performed By: #### 2 4323-8 ####[facility] LABORATORYIA [id number] [place] [address] [place] Calcium [Mass/Vol] 9.0 mg/dL Normal 8.5-10.2 [facility] Comment on above: Order Comment: Speci men Type: BLOOD SPECIMENOrdering Facility: [facility] Address: [address] [place], [place] [id number] Performed By: #### 2 4323-8 ####[facility] LABORATORYCLIA [id number] [place] [address] [place] Chloride [Moles/Vol] 103 mmol/L Normal 97-105 [facility] Comment on above: Order Comment: Speci men Type: BLOOD SPECIMENOrdering Facility: [facility] Address: [address] [place] [address] Performed By: #### 2 4323-8 ####[facility] LABORATORYIA [id number] [place] [address] [place] CO2 [Moles/Vol] 24 mmol/L Normal 22-30 [facility] Comment on above: Order Comment: Speci men Type: BLOOD SPECIMENOrdering Facility: [facility] Address: [address] [place] [address] Performed By: #### 2 4323-8 ####[facility] CENTERIA [id number] [place] [address] [place] Creatinine [Mass/Vol] 0.63 mg/dL Normal 0.58-0.96 [facility] Comment on above: Order Comment: Speci men Type: BLOOD SPECIMENOrdering Facility: [facility] Address: [address] [place] [address] Performed By: #### 2 4323-8 ####[facility] CENTERIA [id number] [place] [address] [place] ESTIMATED GLOMERULAR FILTRATION RATE 112 mL/min/1.73m??? Normal >=60 [facility] l Comment on above: Order Comment: Speci men Type: BLOOD SPECIMENOrdering Facility: [facility] Address: [address] [place] [address] Result Comment: Randy mated Glomerular Filtration Rate (eGFR) is calculated using the 2020 CKD-EPI creatinine equation. This equation utilizes serum creatinine, sex, and age as parameters. The creatinine assay has traceable calibration to isotope dilution-mass spectrometry. Refer to KDIGO guidelines for clinical interpretation. In patients with unstable renal function, e.g. those with acute kidney injury, the eGFR may not accurately reflect actual GFR. Performed By: #### 2 4323-8 ####[facility] [id number] [place] [address] [place] Glucose [Mass/Vol] 130 mg/dL High 74-99 [facility] Comment on above: Order Comment: Speci men Type: BLOOD SPECIMENOrdering Facility: [facility] Address: [address] [address] Result Comment: The [place] [employer] (ADA) provides guidance for cutoff values for fasting glucose and random glucose. The ADA defines fasting as no caloric intake for at least 8 hours. Fasting plasma glucose results between 100 to 125 mg/dL indicate increased risk for diabetes (prediabetes). Fasting plasma glucose results greater than or equal to 126 mg/dL meet the criteria for diagnosis of diabetes. In the absence of unequivocal hyperglycemia, results should be confirmed by repeat testing. In a patient with classic symptoms of hyperglycemia or hyperglycemic crisis, random plasma glucose results greater than or equal to 200 mg/dL meet the criteria for diagnosis of diabetes. Reference: Standards of Medical Care in Diabetes 2016, [place] [employer]. Diabetes Care. 2016.39(Suppl 1). Performed By: #### 2 4323-8 ####[facility] [id number] [place] [address] [place] Potassium [Moles/Vol] 3.5 mmol/L Low 3.7-5.1 [facility] Comment on above: Order Comment: [place] fields Type: BLOOD SPECIMENOrdering Facility: [facility] Address: [address] [address] Performed By: #### 2 4323-8 ####[facility] [id number] [place] [address] [place] Protein [Mass/Vol] 6.9 g/dL Normal 6.3-8.0 [facility] Comment on above: Order Comment: [place] fields Type: BLOOD SPECIMENOrdering Facility: [facility] Address: [address] [address] Performed By: #### 2 4323-8 ####[facility]ORATORYCLIA [id number] [place] [address] [place] [facility] Sodium [Moles/Vol] 140 mmol/L Normal 136-144 [facility]spital Comment on above: Order Comment: Speci men Type: BLOOD SPECIMENOrdering Facility: [facility] Address: [address] [place] [address] Performed By: #### 2 4323-8 ####[facility]ORATORYIA [id number] [place], [place] [id number] [place] [address] [place] Urea nitrogen [Mass/Vol] 9 mg/dL Normal 7-21 [facility] Comment on above: Order Comment: Speci men Type: BLOOD SPECIMENOrdering Facility: [facility] Address: [address] [place] [address] Performed By: #### 2 4323-8 ####[facility] [id number] [address] STATES OF [facility] ECG COMPLETEon 08-11-2022 ECG COMPLETE Ventricular Rate : 8 9 BPM Atrial Rate : 89 BPM P-R Interval : 168 ms QRS Duration : 76 ms Q-T Interval : 372 ms QTC Calculation(Bazett) : 452 ms Calculated P Inlet : 63 degrees Calculated R Inlet : 47 degrees Calculated T Inlet : 31 degrees Normal sinus rhythm Possible Left atrial enlargement Borderline ECG *SEE EPIC NOTE FOR INTERPRETATION Confirmed by BATOOL CA MD (), social media editor MARYAM AGUILAR ([id number]) on 08/15/2022 10:27:28 AM NAME : MELINA DÍAZ PID : [id number] : 1975 Gender : Female Race : ORD : [id number] Procedure Date : Aug 11 2022 14:38:16 Edit Date : Aug 15 2022 10:27:35 Diagnosis: Normal sinus rhythm Possible Left atrial enlargement Borderline ECG *SEE EPIC NOTE FOR INTERPRETATION Confirmed by BATOOL CA MD (), social media editor MARYAM AGUILAR ([id number]) on 08/15/2022 10:27:28 AM Test Reason : Chest Pain Location : 302 : ED Overread By : BATOOL CA MD Edited By : MARYAM AGUILAR Referred By : RIP YOUSSEF Acquired by : , [facility] ED NOTEon 08-11-2022 ED NOTE HNO ID: [id number] Author: Adriana Schmidt RN Service: ? Author Type: Registered Nurse Type: ED Notes Filed: 08/11/2022 9:21 PM Note Text: Report given to PIETRO Mccormick. [facility] ED NOTE HNO ID: [id number] Author: Hamlet Covington RN Service: ? Author Type: Registered Nurse Type: ED Notes Filed: 08/11/2022 8:51 PM Note Text: Unsuccessful Lab draw x 1. [facility] ED NOTE HNO ID: [id number] Author: Mirna Quezada RN Service: Nursing Author Type: Registered Nurse Type: ED Notes Filed: 08/11/2022 2:33 PM Note Text: Pt to ED for possible wound infection on her RLQ after a gastric bypass revision on 07/29, released from hospital on 08/05. Pt states about 3 days ago she noticed her wound has become hard, red and very painful. States she has been in contact with her doctors and they started her on PO antibiotics x the last two days. States there is no improvement. States she is having SOB and CP x 1 day. [facility] ED PROV NOTEon 08-11-2022 ED PROV NOTE HNO ID: [id number] Author: Batool Ca MD Service: Emergency Medicine Author Type: Physician Type: ED Provider Notes Filed: 08/11/2022 8:53 PM Note Text: ED Provider Note Patient Name: Melina Díaz : 1975 SERVICE DATE: 08/11/22 History Patient presents with: Wound Check Shortness of Breath Chest Pain HPI Patient is a 46-year-old female with past medical history of obesity, gastric sleeve surgery in 2011 with conversion to Gelacio-en-Y in April and subsequent revision on 07/29 presents for concern of right lower quadrant wound infection for the past 3 days. Noted a hardened area over previous port site with surrounding redness and extreme tenderness. She was started on Bactrim but states that it is not improving. She also endorses nausea, vomiting, diarrhea. Denies any fevers. Despite triage complaint she does deny any shortness of breath or chest pain. PAST MEDICAL HISTORY Diagnosis Date Breast mass 11/04/07 Right, biopsy benign Encounter for cosmetic surgery Endometriosis Excess skin of arm Fracture , ankle Localized adiposity Morbid obesity (HCC) Ovarian cyst induced hypertension Thyroid disorder PAST SURGICAL HISTORY Procedure Laterality Date ASSIST ONLY x3 EGD multiple GASTRIC BYPASS HX 12/2021 conversion from gastruc sleeve LAPAROSCOPY SURG CHOLECYSTECTOMY 2004 Cholecystectomy, lap PAST SURGICAL HISTORY OF 10/28/2011 gastric sleeve PAST SURGICAL HISTORY OF 2011 excision of goiter PAST SURGICAL HISTORY OF thyroid mass removed TOTAL ABDOMINAL HYSTERECT W/WO RMVL TUBE OVARY 05/01/2010-05/2011 Hysterectomy, partial uterus then completion FAMILY HISTORY Problem Relation Age of Onset Thyroid Other 1st cousin - ? Grave's COPD Mother Hypertension Mother other (hypoglycemia) Mother Emphysema Father Coronary Artery Disease Father Ischemic Heart Disease Father 58 s/p stents Hypertension Father Asthma Sister 1/2 sister with female cysts other (unkown) Sister BiPolar-Bulemia None Brother 1/2--unkown Social History Tobacco Use Smoking status: Never Smokeless tobacco: Never Vaping Use Vaping Use: Never used Substance and Sexual Activity Alcohol use: Not Currently Drug use: No Comment: denies tx for drug/alcohol abuse in the past. Sexual activity: Not on file ALLERGIES Allergen Reactions Gabapentin Angioedema Patient reports throat swelling with gabapentin. Tramadol Hives Adhesive Tape (Serina* Rash, Swelling, Itching Nsaids (Non-Steroid* Contraindication-Medical Surgical S/p gelacio en y gastric bypass Paxil [Paroxetine] Intolerance Gi upset Scopolamine Other: See Comments Blurred vision Tomato Intolerance Toradol [Ketorolac * Hives, Swelling Review of Systems Constitutional: Positive for appetite change. Negative for chills and fever. HENT: Negative for congestion and rhinorrhea. Respiratory: Negative for cough and shortness of breath. Cardiovascular: Negative for chest pain. Gastrointestinal: Positive for abdominal pain, diarrhea, nausea and vomiting. Negative for blood in stool and constipation. Genitourinary: Negative for dysuria. All other systems reviewed and are negative. Physical Exam Vitals [08/11/22 1427] BP Pulse Temp Temp src Resp SpO2 Weight Height 130/67 (!) 93 36.7 ?C (98 ?F) Oral 18 100 % 93.4 kg (206 lb) 1.727 m (5' 8 ) Physical Exam Vitals and nursing note reviewed. Constitutional: General: She is not in acute distress. Appearance: Normal appearance. She is not ill-appearing, toxic-appearing or diaphoretic. HENT: Head: Normocephalic and atraumatic. Eyes: General: Right eye: No discharge. Left eye: No discharge. Extraocular Movements: Extraocular movements intact. Cardiovascular: Rate and Rhythm: Normal rate and regular rhythm. Heart sounds: No murmur heard. Pulmonary: Effort: Pulmonary effort is normal. No respiratory distress. Breath sounds: No stridor. No wheezing, rhonchi or rales. Abdominal: General: There is no distension. Palpations: Abdomen is soft. Tenderness: There is abdominal tenderness. There is guarding. There is no rebound. Comments: Right lower quadrant with approximately 5 cm area of induration, erythema, exquisite tenderness to palpation, no drainage, incision is well-healed Musculoskeletal: Cervical back: Neck supple. Right lower leg: No edema. Left lower leg: No edema. Skin: Findings: Erythema present. Neurological: General: No focal deficit present. Mental Status: She is alert. Psychiatric: Mood and Affect: Mood normal. Diagnostic Testing ED Labs Ordered and Reviewed CBC + DIFF - Abnormal; Notable for the following components: Result Value Ref Range RBC 3.28 (*) 3.90 - 5.20 m/uL Hemoglobin 9.5 (*) 11.5 - 15.5 g/dL Hematocrit 29.2 (*) 36.0 - 46.0 % Platelet Count 414 (*) 150 - 400 k/uL All other components (more content not included)... Normal [facility] Ferritin SerPl-mCncon 2021 Ferritin [Mass/Vol] 310.5 ng/mL High 14.7-205.1 [facility] Comment on above: Order Comment: Speci men Type: BLOOD SPECIMEN [facility] Address: [address] [place] [address] Performed By: #### 5 8410-2 #### [facility] CLIA [id number] [facility] [place] [address] [place] HIGH SENSITIVITY TROPONIN T (INITIAL)on 08-11-2022 HIGH SENSITIVITY SALLY 6 ng/L Normal <12 [facility] Comment on above: Order Comment: [place] fields Type: BLOOD SPECIMEN [facility] Address: [address] [place] [address] Result Comment: When assessing risk for acute coronary syndromes: In patients undergoing blood draw greater than or equal to 2 hours from symptom onset, with history of very low to moderate risk and non-ischemic ECG, an initial hs-Troponin T less than 12 ng/L AND a 1 hour delta hs-Troponin T less than 3 ng/L should be considered very low risk for 30 day MACE. Performed By: #### 5 8410-2 #### [facility] CLIA [id number] [address] [place] [address] [place] OF [facility] HIGH SENSITIVITY TROPONIN T (SECOND)on 08-11-2022 HIGH SENSITIVITY SALLY 7 ng/L Normal <12 [facility] Comment on above: Order Comment: [place] fields Type: BLOOD SPECIMEN [facility] Address: [address] [place] [address] Result Comment: When assessing risk for acute coronary syndromes: In patients undergoing blood draw greater than or equal to 2 hours from symptom onset, with history of very low to moderate risk and non-ischemic ECG, an initial hs-Troponin T less than 12 ng/L AND a 1 hour delta hs-Troponin T less than 3 ng/L should be considered very low risk for 30 day MACE. Performed By: #### 5 8410-2 #### [facility] CLIA [id number] [place] [address] [place] Iron and Iron binding capaci ty panelon 08-11-2022 Iron [Mass/Vol] 37 ug/dL Low 41-186 [facility] Comment on above: Order Comment: [place] fields Type: BLOOD SPECIMEN [facility] Address: [address] [place] [address] Performed By: #### 5 8410-2 #### [facility] CLIA [id number] [place] [address] [place] [facility] Iron binding capacity [Mass/Vol] 291 ug/dL Normal 232-386 [facility] Comment on above: Order Comment: Speci men Type: BLOOD SPECIMEN [facility] Address: [address] Performed By: #### 5 8410-2 #### [facility] CLIA [id number] OF [facility] Iron/TIBC [Molar ratio] 12.7 % Low 15.0-57.0 [facility] Comment on above: Order Comment: Speci men Type: BLOOD SPECIMEN [facility] Address: [address] Performed By: #### 5 8410-2 #### [facility] [place] [id number] [place] Retics #on 08-11-2022 Reticulocytes (Bld) [#/Vol] 0.22215 10*3/uL Normal 0.018-0.10 0 [facility] Comment on above: Order Comment: Speci men Type: BLOOD SPECIMENOrdering Facility: [facility] Address: [address] [address] Performed By: #### 5 7021-8, 37065-3 ####[facility]ATORYCLIA [id number] [address] [place] Reticulocytes (Bld) [#/Vol]o n 08-11-2022 Reticulocytes/100 RBC (Bld) 2.0 % Normal 0.4-2.0 [facility] Comment on above: Order Comment: Speci men Type: BLOOD SPECIMENOrdering Facility: [facility] Address: [address] Performed By: #### 5 7021-8, 09164-7 ####[facility]ATORYIA [id number] [address] [place] Urinalysis complete panel (U )on 08-11-2022 Bacteria LM.HPF (Urine sed) [#/Area] Rare Abnormal None [facility]en [facility] Comment on above: Order Comment: Speci men Type: URINE SPECIMENOrdering Facility: [facility] Address: [address] [address] Performed By: #### 2 4356-8 ####[facility] [id number] [place] [address] [place] Bilirubin Ql (U) Negative Normal Negative [facility] Comment on above: Order Comment: Speci men Type: URINE SPECIMENOrdering Facility: [facility] Address: [address] [address] Performed By: #### 2 4356-8 ####[facility] [id number] [place] [address] [place] CALCIUM OXALATE CRYSTALS (UA) Few Abnormal None Seen [facility] Comment on above: Order Comment: Speci men Type: URINE SPECIMENOrdering Facility: [facility] Address: [address] [address] Performed By: #### 2 4356-8 ####[facility] [id number] [place] [address] [place] Clarity (Unsp spec) Clear Normal Clear [facility] Comment on above: Order Comment: Speci men Type: URINE SPECIMENOrdering Facility: [facility] Address: [address] [address] Performed By: #### 2 4356-8 ####[facility] [id number] [place] [address] [place] Color (U) Yellow Normal Yellow [facility] Comment on above: Order Comment: Speci men Type: URINE SPECIMENOrdering Facility: [facility] Address: [address] [address] Performed By: #### 2 4356-8 ####[facility] [id number] [place] [address] [place] Glucose Test strip (U) [Mass/Vol] Negative Normal Negative [facility] Comment on above: Order Comment: Speci men Type: URINE SPECIMENOrdering Facility: [facility] Address: [address] [address] Performed By: #### 2 4356-8 ####[facility] [id number] [place] [address] [place] Hemoglobin Ql (U) Negative Normal Negative [facility] jhony Comment on above: Order Comment: Speci men Type: URINE SPECIMENOrdering Facility: [facility] Address: [address] [place] [address] Performed By: #### 2 4356-8 ####[facility] [id number] [place] [address] [place] Ketones Ql (U) 1+ Abnormal Negative [facility] Comment on above: Order Comment: Speci men Type: URINE SPECIMENOrdering Facility: [facility] Address: [address] [place] [address] Performed By: #### 2 4356-8 ####[facility] [id number] [place] [address] [place] Leukocyte esterase Test strip Ql (U) Negative Normal Negative [facility] Comment on above: Order Comment: Speci men Type: URINE SPECIMENOrdering Facility: [facility] Address: [address] [place] [address] Performed By: #### 2 4356-8 ####[facility] [id number] [place] [address] [place] Nitrite Ql (U) Negative Normal Negative [facility] Comment on above: Order Comment: Speci men Type: URINE SPECIMENOrdering Facility: [facility] Address: [address] [place] [address] Performed By: #### 2 4356-8 ####[facility] [id number] [place] [address] [place] pH (U) 5.5 [pH] Normal 5.0-8.0 [facility] Comment on above: Order Comment: Speci men Type: URINE SPECIMENOrdering Facility: [facility] Address: [address] [address] Performed By: #### 2 4356-8 ####[facility] [id number] [place] [address] [place] Protein (U) [Mass/Vol] Trace Abnormal Negative [facility] Comment on above: Order Comment: Speci men Type: URINE SPECIMENOrdering Facility: [facility] Address: [address] [address] Performed By: #### 2 4356-8 ####[facility] [id number] [place] [address] [place] RBC LM.HPF (Urine sed) [#/Area] 3-5 /HPF Abnormal 0-3 /HPF [facility] Comment on above: Order Comment: Speci men Type: URINE SPECIMENOrdering Facility: [facility] Address: [address] [place] [address] Performed By: #### 2 4356-8 ####[facility] [id number] [address] [place] Specific gravity (U) [Rel density] >=1.030 High 1.005-1.03 0 [facility] Comment on above: Order Comment: Speci men Type: URINE SPECIMENOrdering Facility: [facility] Address: [address] [place] [address] Performed By: #### 2 4356-8 ####[facility] [id number] [address] [place] Urobilinogen Ql (U) 0.2 EU/dL Normal 0.2-1.0 EU/dL [facility] Comment on above: Order Comment: Speci men Type: URINE SPECIMENOrdering Facility: [facility] Address: [address] [place] [address] Performed By: #### 2 4356-8 ####[facility] [id number] [place] [address] [place] WBC LM.HPF (Urine sed) [#/Area] /[HPF] Abnormal 0-5 /HPF [facility] Comment on above: Order Comment: Speci men Type: URINE SPECIMENOrdering Facility: [facility] Address: [address] [id number] Performed By: #### 2 4356-8 ####[facility]ATORYCLIA [id number] [place] [address] [place] VITAMIN B1 (THIAMINE), WHOLE BLOODon 08-11-2022 Thiamine (Bld) [Moles/Vol] 194.6 nmol/L Normal 84.3-213.3 [facility] Comment on above: Order Comment: Speci men Type: BLOOD SPECIMEN [facility] Address: [address] [id number] Result Comment: This assay measures the concentration of thiamine diphosphate (TDP), the primary active form of vitamin B1. Approximately 90 percent of vitamin B1 present in whole blood is TDP. Thiamine and thiamine monophosphate, which comprise the remaining 10 percent, are not measured. This test was developed and its performance characteristics determined by [facility]'s [facility] Path[facility] Laboratory Medicine [place] ([facility]). It has not been cleared or approved by the FDA. -[facility] is regulated under CLIA as qualified to perform high-complexity testing. This test is used for clinical purposes. It should not be regarded as investigational or for research. Performed By: #### 5 8410-2 #### [facility] CLIA [id number] [place] [address] [place] VITAMIN B6/PYRIDOXINon 08-11 VITAMIN B6 27.2 nmol/L Normal 20.0-125.0 [facility] Comment on above: Order Comment: Speci men Type: BLOOD SPECIMENOrdering Facility: [facility] Address: [address] [id number] Result Comment: INTE RPRETIVE INFORMATION: Vitamin B6 (Pyridoxal 5-Phosphate) Pyridoxal 5'-phosphate measured in a specimen collected following an 8-hour or overnight fast accurately indicates vitamin B6 nutritional status. Non-fasting specimen concentration reflects recent vitamin intake. This test was developed and its performance characteristics determined by [facility]. It has not been cleared or approved by the [place] Food and Drug Administration. This test was performed in a CLIA certified laboratory and is intended for clinical purposes. Performed By: [facility] [address] [place] [address] Physician Office Specialist: Leslie Luna MD, PhD Performed By: #### V ITB6 ####[facility] [id number] [place] [address] XR CHEST 1V FRONTAL PORTon 1 10-11-2021 XR CHEST 1V FRONTAL PORT * * *Final Report* * * DATE OF EXAM: Aug 11 2022 5:10PM VHX [id number] - XR CHEST 1V FRONTAL PORT / PROCEDURE REASON: Fatigue and malaise * * * * Physician Interpretation * * * * EXAMINATION: CHEST RADIOGRAPH (PORTABLE SINGLE VIEW AP) Exam Date/Time: 08/11/2022 5:10 PM CLINICAL HISTORY: Fatigue and malaise MQ: XCPR_5 Comparison: 07/31/2022 RESULT: Lines, tubes, and devices: None. Lungs and pleura: No consolidation, pneumothorax or pleural effusion. Cardiomediastinal silhouette: Stable cardiomediastinal silhouette. Other: . IMPRESSION: No acute findings. Billing Assistant: PSCB Transcribe Date/Time: Aug 11 2022 5:17P Dictated by : TUCKER PORTER MD This examination was interpreted and the report reviewed and electronically signed by: TUCKER PORTER MD on Aug 11 2022 5:17PM EST [id number] Normal [facility] TOX SCREEN ROUT URon 022 Amphetamines Confirm (U) [Mass/Vol] Negative Negative [facility] Barbiturates Urine Negative Negative [facility] Benzodiazepines Urine Negative Negative [facility] Cannabinoids, Urine Negative Negative [facility] Cocaine Ql (U) Negative Negative [facility] Ethanol (U) [Mass/Vol] <11 mg/dL [facility] Opiates Screen Ql (U) Negative Negative [facility] oxyCODONE cutoff Screen (U) [Mass/Vol] Positive Abnormal Negative [facility] Phencyclidine Ql (U) Negative Negative [facility] CASE MANAGEMon 08-04-2022 CASE MANAGEM Normal [facility] CBC W Auto Differential pane l (Bld)on 08-04-2022 Basophils (Bld) [#/Vol] 0.03 10*3/uL Normal <0.11 [facility] Comment on above: Order Comment: Speci men Type: BLOOD SPECIMENOrdering Facility: [facility] Address: [address] [place] [address] Performed By: #### 5 7021-8 ####[facility] [id number] [place] [address] [place] Basophils/100 WBC (Bld) 0.5 % Normal [facility] Comment on above: Order Comment: Speci men Type: BLOOD SPECIMENOrdering Facility: [facility] Address: [address] [place] [address] Performed By: #### 5 7021-8 ####[facility]ORY[facility]IA [id number] [place] [address] [place] Differential cell count method Nom (Bld) Auto Normal [facility] Comment on above: Order Comment: Speci men Type: BLOOD SPECIMENOrdering Facility: [facility] Address: [address] [place] [address] Performed By: #### 5 7021-8 ####[facility]ORY[facility] [id number] [place] [address] [place] Eosinophils (Bld) [#/Vol] 0.17 10*3/uL Normal <0.46 [facility] Comment on above: Order Comment: Speci men Type: BLOOD SPECIMENOrdering Facility: [facility] Address: [address] [place] [address] Performed By: #### 5 7021-8 ####[facility] LABORATORYCLIA [id number] [address] [place] Eosinophils/100 WBC (Bld) 2.8 % Normal [facility] Comment on above: Order Comment: Speci men Type: BLOOD SPECIMENOrdering Facility: [facility] Address: [address] [place] [address] Performed By: #### 5 7021-8 ####[facility] LABORATORYCLIA [id number] [place] [address] [place] Erythrocyte distribution width (RBC) [Ratio] 13.9 % Normal 11.5-15.0 [facility] Comment on above: Order Comment: Speci men Type: BLOOD SPECIMENOrdering Facility: [facility] Address: [address] [place] [address] Performed By: #### 5 7021-8 ####[facility] LABORATORYCLIA [id number] [place] [address] [place] Hematocrit (Bld) [Volume fraction] 25.4 % Low 36.0-46.0 [facility] Comment on above: Order Comment: Speci men Type: BLOOD SPECIMENOrdering Facility: [facility] Address: [address] [place] [address] Performed By: #### 5 7021-8 ####[facility] LABORATORYCLIA [id number] [place] [address] [place] Hemoglobin (Bld) [Mass/Vol] 8.2 g/dL Low 11.5-15.5 [facility] Comment on above: Order Comment: Speci men Type: BLOOD SPECIMENOrdering Facility: [facility] Address: [address] [place] [address] Performed By: #### 5 7021-8 ####[facility] LABORATORYCLIA [id number] [address] [place] Immature granulocytes (Bld) [#/Vol] 0.03 10*3/uL Normal <0.10 [facility] Comment on above: Order Comment: Speci men Type: BLOOD SPECIMENOrdering Facility: [facility] Address: [address] [place] [address] Performed By: #### 5 7021-8 ####[facility] LABORATORYCLIA [id number] [address] [place] Immature granulocytes/100 WBC (Bld) 0.5 % Normal [facility] Comment on above: Order Comment: Speci men Type: BLOOD SPECIMENOrdering Facility: [facility] Address: [address] [address] Performed By: #### 5 7021-8 ####[facility] LABORATORYCLIA [id number] [place] [address] [place] Lymphocytes (Bld) [#/Vol] 1.85 10*3/uL Normal 1.00-4.00 [facility] Comment on above: Order Comment: Speci men Type: BLOOD SPECIMENOrdering Facility: [facility] Address: [address] [address] Performed By: #### 5 7021-8 ####[facility] LABORATORYCLIA [id number] [place] [address] [place] Lymphocytes/100 WBC (Bld) 30.1 % Normal [facility] Comment on above: Order Comment: Speci men Type: BLOOD SPECIMENOrdering Facility: [facility] Address: [address] [address] Performed By: #### 5 7021-8 ####[facility] LABORATORYCLIA [id number] [place] [address] [place] MCH (RBC) [Entitic mass] 29.0 pg Normal 26.0-34.0 [facility] Comment on above: Order Comment: Speci men Type: BLOOD SPECIMENOrdering Facility: [facility] Address: [address] [address] Performed By: #### 5 7021-8 ####[facility] LABORATORYCLIA [id number] [place] [address] [place] MCHC (RBC) [Mass/Vol] 32.3 g/dL Normal 30.5-36.0 [facility] Comment on above: Order Comment: Speci men Type: BLOOD SPECIMENOrdering Facility: [facility] Address: [address] [address] Performed By: #### 5 7021-8 ####[facility] LABORATORYCLIA [id number] [address] [place] MCV (RBC) [Entitic vol] 89.8 fL Normal 80.0-100.0 [facility] Comment on above: Order Comment: Speci men Type: BLOOD SPECIMENOrdering Facility: [facility] Address: [address] [address] Performed By: #### 5 7021-8 ####[facility] LABORATORYCLIA [id number] [place] [address] [place] Monocytes (Bld) [#/Vol] 0.75 10*3/uL Normal <0.87 [facility] Comment on above: Order Comment: Speci men Type: BLOOD SPECIMENOrdering Facility: [facility] Address: [address] [address] Performed By: #### 5 7021-8 ####[facility] LABORATORYCLIA [id number] [place] [address] [place] Monocytes/100 WBC (Bld) 12.2 % Normal [facility] Comment on above: Order Comment: Speci men Type: BLOOD SPECIMENOrdering Facility: [facility] Address: [address] [address] Performed By: #### 5 7021-8 ####[facility] LABORATORYCLIA [id number] [place] [address] [place] Neutrophils (Bld) [#/Vol] 3.32 10*3/uL Normal 1.45-7.50 [facility] Comment on above: Order Comment: Speci men Type: BLOOD SPECIMENOrdering Facility: [facility] Address: [address] [address] Performed By: #### 5 7021-8 ####[facility] LABORATORYCLIA [id number] [place] [address] [place] Neutrophils/100 WBC (Bld) 53.9 % Normal [facility] Comment on above: Order Comment: Speci men Type: BLOOD SPECIMENOrdering Facility: [facility] Address: [address] [place] [address] Performed By: #### 5 7021-8 ####[facility] LABORATORYCLIA [id number] [place] [address] [place] Nucleated RBC (Bld) [#/Vol] 10*3/uL Normal <0.01 [facility] Comment on above: Order Comment: Speci men Type: BLOOD SPECIMENOrdering Facility: [facility] Address: [address] [place] [address] Performed By: #### 5 7021-8 ####[facility] LABORATORYCLIA [id number] [place] [address] [place] Nucleated RBC/100 WBC (Bld) [Ratio] 0.0 /100 WBC Normal [facility] Comment on above: Order Comment: Speci men Type: BLOOD SPECIMENOrdering Facility: [facility] Address: [address] [address] Performed By: #### 5 7021-8 ####[facility] LABORATORYCLIA [id number] [place] [address] [place] Platelet mean volume (Bld) [Entitic vol] 10.0 fL Normal 9.0-12.7 [facility] Comment on above: Order Comment: Speci men Type: BLOOD SPECIMENOrdering Facility: [facility] Address: [address] [address] Performed By: #### 5 7021-8 ####[facility] LABORATORYCLIA [id number] [place] [address] [place] Platelets (Bld) [#/Vol] 230 10*3/uL Normal 150-400 [facility] Comment on above: Order Comment: Speci men Type: BLOOD SPECIMENOrdering Facility: [facility] Address: [address] [address] Performed By: #### 5 7021-8 ####[facility] LABORATORYCLIA [id number] [place] [address] [place] RBC (Bld) [#/Vol] 2.83 10*6/uL Low 3.90-5.20 [facility] Comment on above: Order Comment: Speci men Type: BLOOD SPECIMENOrdering Facility: [facility] Address: [address] [address] Performed By: #### 5 7021-8 ####[facility] LABORATORYCLIA [id number] [place] [address] [place] WBC (Bld) [#/Vol] 6.15 10*3/uL Normal 3.70-11.00 [facility] Comment on above: Order Comment: Speci men Type: BLOOD SPECIMENOrdering Facility: [facility] Address: [address] [place] [address] Performed By: #### 5 7021-8 ####[facility] LABORATORYCLIA [id number] [place] [address] [place] CNDSon 08-04-2022 CNDS Normal [facility] CRP SerPl-mCncon 08-04-2022 CRP [Mass/Vol] 2.3 mg/dL High <0.9 [facility] Comment on above: Order Comment: Spec men Type: BLOOD SPECIMENOrdering Facility: [facility] Address: [address] [place] [address] Performed By: #### 1 988-5, 79221-3 ####[facility] LABORATORYCLIA [id number] [place] [address] [place] Hepatic function 2000 panelo n 08-04-2022 Albumin [Mass/Vol] 3.1 g/dL Low 3.9-4.9 [facility] Comment on above: Order Comment: Speci men Type: BLOOD SPECIMENOrdering Facility: [facility] Address: [address] [place] [address] Performed By: #### 1 988-5, 65719-8 ####[facility] LABORATORYCLIA [id number] [place] [address] [place] ALP [Catalytic activity/Vol] 72 U/L Normal 34-123 [facility] Comment on above: Order Comment: Speci men Type: BLOOD SPECIMENOrdering Facility: [facility] Address: [address] [place] [address] Performed By: #### 1 988-5, 51500-5 ####[facility] LABORATORYCLIA [id number] [address] [place] ALT [Catalytic activity/Vol] 23 U/L Normal 7-38 [facility] Comment on above: Order Comment: Speci men Type: BLOOD SPECIMENOrdering Facility: [facility] Address: [address] [address] Performed By: #### 1 988-5, 27923-9 ####[facility] LABORATORYCLIA [id number] [address] OF [facility] AST [Catalytic activity/Vol] 20 U/L Normal 13-35 [facility] Comment on above: Order Comment: Speci men Type: BLOOD SPECIMENOrdering Facility: [facility] Address: [address] [address] Performed By: #### 1 988-5, 32477-0 ####[facility] LABORATORYCLIA [id number] [address] [place] Bilirubin [Mass/Vol] 0.2 mg/dL Normal 0.2-1.3 [facility] Comment on above: Order Comment: Speci men Type: BLOOD SPECIMENOrdering Facility: [facility] Address: [address] [address] Performed By: #### 1 988-5, 79505-0 ####[facility] LABORATORYCLIA [id number] [address] Bilirubin.conjugated [Mass/Vol] mg/dL Normal <0.2 [facility] Comment on above: Order Comment: Speci men Type: BLOOD SPECIMENOrdering Facility: [facility] Address: [address] [address] Performed By: #### 1 988-5, 86605-6 ####[facility] LABORATORYCLIA [id number] [place] [address] [place] Protein [Mass/Vol] 5.5 g/dL Low 6.3-8.0 [facility] Comment on above: Order Comment: Speci men Type: BLOOD SPECIMENOrdering Facility: [facility] Address: [address] [address] Performed By: #### 1 988-5, 15590-1 ####[facility] LABORATORYCLIA [id number] [place] [address] [facility] Magnesium [facility] Magnesium [Mass/Vol] 2.1 mg/dL Normal 1.7-2.3 [facility] Comment on above: Order Comment: Speci men Type: BLOOD SPECIMENOrdering Facility: [facility] Address: [address] [address] Performed By: #### 1 9123-9, 07478-2 ####[facility] LABORATORYCLIA [id number] [place] [id number] [place] NURSING PROGon 08-04-2022 NURSING PROG Normal [facility] NUTRITIONon 08-04-2022 NUTRITION Normal [facility]b [facility] 08-04-20 Prealbumin [Mass/Vol] 15 mg/dL Low 17-36 [facility] Comment on above: Order Comment: Speci men Type: BLOOD SPECIMENOrdering Facility: [facility] Address: [address] [address] Performed By: #### 1 4338-8 ####[facility] LABCLIA [id number] [address] [place] Renal function 2000 panelon 08-04-2022 Albumin [Mass/Vol] 3.2 g/dL Low 3.9-4.9 [facility] Comment on above: Order Comment: Speci men Type: BLOOD SPECIMENOrdering Facility: [facility] Address: [address] [address] Performed By: #### 1 9123-9, 51629-9 ####[facility] LABORATORYCLIA [id number] [place] [address] [place] Anion gap [Moles/Vol] 7 mmol/L Low 9-18 [facility] Comment on above: Order Comment: Speci men Type: BLOOD SPECIMENOrdering Facility: [facility] Address: [address] [address] Performed By: #### 1 9123-9, 81151-4 ####[facility] LABORATORYCLIA [id number] [place] [address] [place] Calcium [Mass/Vol] 8.3 mg/dL Low 8.5-10.2 [facility] Comment on above: Order Comment: Speci men Type: BLOOD SPECIMENOrdering Facility: [facility] Address: [address] [address] Performed By: #### 1 9123-9, ####[facility] LABORATORYCLIA [id number] [place] [address] [place] Chloride [Moles/Vol] 103 mmol/L Normal 97-105 [facility] Comment on above: Order Comment: Speci men Type: BLOOD SPECIMENOrdering Facility: [facility] Address: [address] [address] Performed By: #### 1 9123-9, ####[facility] LABORATORYCLIA [id number] [place] [address] [place] CO2 [Moles/Vol] 29 mmol/L Normal 22-30 [facility] Comment on above: Order Comment: Speci men Type: BLOOD SPECIMENOrdering Facility: [facility] Address: [address] [address] Performed By: #### 1 9123-9, ####[facility] LABORATORYCLIA [id number] [place] [address] [place] Creatinine [Mass/Vol] 0.54 mg/dL Low 0.58-0.96 [facility] Comment on above: Order Comment: Speci men Type: BLOOD SPECIMENOrdering Facility: [facility] Address: [address] [address] Performed By: #### 1 9123-9, ####[facility] LABORATORYCLIA [id number] [place] [address] [place] ESTIMATED GLOMERULAR FILTRATION RATE 116 mL/min/1.73m??? Normal >=60 [facility] Comment on above: Order Comment: Speci men Type: BLOOD SPECIMENOrdering Facility: [facility] Address: [address] [address] Result Comment: Randy mated Glomerular Filtration Rate (eGFR) is calculated using the 2020 CKD-EPI creatinine equation. This equation utilizes serum creatinine, sex, and age as parameters. The creatinine assay has traceable calibration to isotope dilution-mass spectrometry. Refer to KDIGO guidelines for clinical interpretation. In patients with unstable renal function, e.g. those with acute kidney injury, the eGFR may not accurately reflect actual GFR. Performed By: #### 1 9123-9, 57338-8 ####[facility] LABORATORYCLIA [id number] [place] [address] [place] Glucose [Mass/Vol] 97 mg/dL Normal 74-99 [facility] Comment on above: Order Comment: [place] fields Type: BLOOD SPECIMENOrdering Facility: [facility] Address: [address] [place] [address] Result Comment: The [place] [employer] (ADA) provides guidance for cutoff values for fasting glucose and random glucose. The ADA defines fasting as no caloric intake for at least 8 hours. Fasting plasma glucose results between 100 to 125 mg/dL indicate increased risk for diabetes (prediabetes).Fasting plasma glucose results greater than or equal to 126 mg/dL meet the criteria for diagnosis of diabetes. In the absence of unequivocal hyperglycemia, results should be confirmed by repeat testing. In a patient with classic symptoms of hyperglycemia or hyperglycemic crisis, random plasma glucose results greater than or equal to 200 mg/dL meet the criteria for diagnosis of diabetes.Reference: Standards of Medical Care in Diabetes 2016, [place] [employer]. Diabetes Care. 2016.39(Suppl 1). Performed By: #### 1 9123-9, 15041-7 ####[facility] LABORATORYCLIA [id number] [place] [address] [place] Phosphate [Mass/Vol] 3.5 mg/dL Normal 2.7-4.8 [facility] Comment on above: Order Comment: [place] fields Type: BLOOD SPECIMENOrdering Facility: [facility] Address: [address] Performed By: #### 1 9123-9, 41029-3 ####[facility] LABORATORYCLIA [id number] [place] [address] [place] Potassium [Moles/Vol] 4.0 mmol/L Normal 3.7-5.1 [facility] Comment on above: Order Comment: Speci men Type: BLOOD SPECIMENOrdering Facility: [facility] Address: [address] [place] [address] Performed By: #### 1 9123-9, 30786-8 ####[facility] LABORATORYCLIA [id number] [place] [address] [place] Sodium [Moles/Vol] 139 mmol/L Normal 136-144 [facility] Comment on above: Order Comment: Speci men Type: BLOOD SPECIMENOrdering Facility: [facility] Address: [address] [place] [address] Performed By: #### 1 9123-9, 91200-0 ####[facility] LABORATORYCLIA [id number] [place] [address] [place] Urea nitrogen [Mass/Vol] 15 mg/dL Normal 7-21 [facility] Comment on above: Order Comment: Speci men Type: BLOOD SPECIMENOrdering Facility: [facility] Address: [address] [place] [address] Performed By: #### 1 9123-9, 20239-7 ####[facility] LABORATORYCLIA [id number] [place] [address] [place] Magnesium SerPl-mCncon 08-03 Magnesium [Mass/Vol] 1.8 mg/dL Normal 1.7-2.3 [facility] Comment on above: Order Comment: Speci men Type: BLOOD SPECIMENOrdering Facility: [facility] Address: [address] [place] [address] Performed By: #### 1 9123-9, 96106-4 ####[facility] LABORATORYCLIA [id number] [place] [address] [place] NURSING PROGon 08-03-2022 NURSING PROG Normal [facility] Renal function 2000 panelon 08-03-2022 Albumin [Mass/Vol] 3.2 g/dL Low 3.9-4.9 [facility] Comment on above: Order Comment: Speci men Type: BLOOD SPECIMENOrdering Facility: [facility] Address: [address] [address] Performed By: #### 1 9123-9, 62485-9 ####[facility] LABORATORYCLIA [id number] [place] [address] [place] Anion gap [Moles/Vol] 9 mmol/L Normal 9-18 [facility] Comment on above: Order Comment: Speci men Type: BLOOD SPECIMENOrdering Facility: [facility] Address: [address] [address] Performed By: #### 1 239, 49661-3 ####[facility] LABORATORYCLIA [id number] [place] [address] [place] Calcium [Mass/Vol] 7.7 mg/dL Low 8.5-10.2 [facility] Comment on above: Order Comment: Speci men Type: BLOOD SPECIMENOrdering Facility: [facility] Address: [address] [address] Performed By: #### 1 91239, 20909-6 ####[facility] LABORATORYCLIA [id number] [place] [address] [place] Chloride [Moles/Vol] 105 mmol/L Normal 97-105 [facility] Comment on above: Order Comment: Speci men Type: BLOOD SPECIMENOrdering Facility: [facility] Address: [address] [address] Performed By: #### 1 9123-9, 77338-6 ####[facility] LABORATORYCLIA [id number] [place] [address] [place] CO2 [Moles/Vol] 27 mmol/L Normal 22-30 [facility] Comment on above: Order Comment: Speci men Type: BLOOD SPECIMENOrdering Facility: [facility] Address: [address] [address] Performed By: #### 1 9123-05, 72785-4 ####[facility] LABORATORYCLIA [id number] [place] [address] [place] Creatinine [Mass/Vol] 0.54 mg/dL Low 0.58-0.96 [facility] Comment on above: Order Comment: [place] Type: BLOOD SPECIMENOrdering Facility: [facility] Address: [address] [address] Performed By: #### 1 9123-9, 32521-7 ####[facility] LABORATORYCLIA [id number] [address] [place] ESTIMATED GLOMERULAR FILTRATION RATE 116 mL/min/1.73m??? Normal >=60 [facility] Comment on above: Order Comment: Sharon donnie Type: BLOOD SPECIMENOrdering Facility: [facility] Address: [address] [place] [address] Result Comment: Randy mated Glomerular Filtration Rate (eGFR) is calculated using the 2020 CKD-EPI creatinine equation. This equation utilizes serum creatinine, sex, and age as parameters. The creatinine assay has traceable calibration to isotope dilution-mass spectrometry. Refer to KDIGO guidelines for clinical interpretation. In patients with unstable renal function, e.g. those with acute kidney injury, the eGFR may not accurately reflect actual GFR. Performed By: #### 1 9123-9, 05849-5 ####[facility] LABORATORYCLIA [id number] [place] [id number] [place] Glucose [Mass/Vol] 96 mg/dL Normal 74-99 [facility] Comment on above: Order Comment: Sharonjohnie fields Type: BLOOD SPECIMENOrdering Facility: [facility] Address: [address] [place] [address] Result Comment: The [place] [employer] (ADA) provides guidance for cutoff values for fasting glucose and random glucose. The ADA defines fasting as no caloric intake for at least 8 hours. Fasting plasma glucose results between 100 to 125 mg/dL indicate increased risk for diabetes (prediabetes).Fasting plasma glucose results greater than or equal to 126 mg/dL meet the criteria for diagnosis of diabetes. In the absence of unequivocal hyperglycemia, results should be confirmed by repeat testing. In a patient with classic symptoms of hyperglycemia or hyperglycemic crisis, random plasma glucose results greater than or equal to 200 mg/dL meet the criteria for diagnosis of diabetes.Reference: Standards of Medical Care in Diabetes 2016, [place] [employer]. Diabetes Care. 2016.39(Suppl 1). Performed By: #### 1 9123-9, 59523-4 ####[facility] LABORATORYCLIA [id number] [place] [address] [place] Phosphate [Mass/Vol] 3.2 mg/dL Normal 2.7-4.8 [facility] Comment on above: Order Comment: Speci men Type: BLOOD SPECIMENOrdering Facility: [facility] Address: [address] [address] Performed By: #### 1 91239, 62487-9 ####[facility] LABORATORYCLIA [id number] [place] [address] [place] Potassium [Moles/Vol] 4.0 mmol/L Normal 3.7-5.1 [facility] Comment on above: Order Comment: Speci men Type: BLOOD SPECIMENOrdering Facility: [facility] Address: [address] [address] Performed By: #### 1 91239, 12433-0 ####[facility] LABORATORYCLIA [id number] [place] [id number] [place] Sodium [Moles/Vol] 141 mmol/L Normal 136-144 [facility] Comment on above: Order Comment: Speci men Type: BLOOD SPECIMENOrdering Facility: [facility] Address: [address] [address] Performed By: #### 1 91239, 38031-5 ####[facility] LABORATORYCLIA [id number] [place] [id number] [place] Urea nitrogen [Mass/Vol] 19 mg/dL Normal 7-21 [facility] Comment on above: Order Comment: Speci men Type: BLOOD SPECIMENOrdering Facility: [facility] Address: [address] [address] Performed By: #### 1 9123, 87028-5 ####[facility] LABORATORYCLIA [id number] [address] [place] Urinalysis complete panel (U )on 08-03-2022 Bilirubin Ql (U) Negative Normal Negative [facility] Comment on above: Order Comment: Speci men Type: URINE SPECIMENOrdering Facility: [facility] Address: [address] [place] [address] Performed By: #### 2 4356-8 ####[facility] LABORATORYCLIA [id number] [address] [place] Clarity (Unsp spec) Clear Normal Clear [facility] Comment on above: Order Comment: Speci men Type: URINE SPECIMENOrdering Facility: [facility] Address: [address] [place] [address] Performed By: #### 2 4356-8 ####[facility] LABORATORYCLIA [id number] [address] [place] [facility] Color (U) Light Yellow Normal Yellow [facility] Comment on above: Order Comment: Speci men Type: URINE SPECIMENOrdering Facility: [facility] Address: [address] [place] [address] Performed By: #### 2 4356-8 ####JUAN[facility]ABLO LABORATORYCLIA [id number] [address] [place] Epithelial cells LM.HPF (Urine sed) [#/Area] Few Normal [facility] Comment on above: Order Comment: Speci men Type: URINE SPECIMENOrdering Facility: [facility] Address: [address] [place] [address] Performed By: #### 2 4356-8 ####[facility] LABORATORYCLIA [id number] [place] [address] [place] Glucose Test strip (U) [Mass/Vol] Negative Normal Negative [facility] Comment on above: Order Comment: Speci men Type: URINE SPECIMENOrdering Facility: [facility] Address: [address] [place] [address] Performed By: #### 2 4356-8 ####[facility] LABORATORYCLIA [id number] [place] [address] [place] Hemoglobin Ql (U) Negative Normal Negative [facility] Comment on above: Order Comment: Speci men Type: URINE SPECIMENOrdering Facility: [facility] Address: [address] [place] [address] Performed By: #### 2 4356-8 ####[facility] LABORATORYCLIA [id number] [place] [address] [place] Ketones Ql (U) Negative Normal Negative [facility] Comment on above: Order Comment: Speci men Type: URINE SPECIMENOrdering Facility: [facility] Address: [address] [place] [address] Performed By: #### 2 4356-8 ####[facility] LABORATORYCLIA [id number] [address] [place] Leukocyte esterase Test strip Ql (U) Negative Normal Negative [facility] Comment on above: Order Comment: Speci men Type: URINE SPECIMENOrdering Facility: [facility] Address: [address] [place] [address] Performed By: #### 2 4356-8 ####[facility] LABORATORYCLIA [id number] [address] [place] Nitrite Ql (U) Negative Normal Negative [facility] Comment on above: Order Comment: Speci men Type: URINE SPECIMENOrdering Facility: [facility] Address: [address] [place] [address] Performed By: #### 2 4356-8 ####[facility] LABORATORYCLIA [id number] [place] [address] [place] pH (U) 7.0 [pH] Normal 5.0-8.0 [facility] Comment on above: Order Comment: Speci men Type: URINE SPECIMENOrdering Facility: [facility] Address: [address] [place] [address] Performed By: #### 2 4356-8 ####[facility] LABORATORYCLIA [id number] [place] [address] [place] Protein (U) [Mass/Vol] Negative Normal Negative [facility] Comment on above: Order Comment: Speci men Type: URINE SPECIMENOrdering Facility: [facility] Address: [address] [place] [address] Performed By: #### 2 4356-8 ####[facility] LABORATORYCLIA [id number] [place] [address] [place] RBC LM.HPF (Urine sed) [#/Area] 0-3 /HPF Normal 0-3 /HPF [facility] Comment on above: Order Comment: Speci men Type: URINE SPECIMENOrdering Facility: [facility] Address: [address] [place] [address] Performed By: #### 2 4356-8 ####[facility] FOR BOYSIA [id number] [address] Specific gravity (U) [Rel density] 1.016 Normal 1.005-1.03 0 [facility] Comment on above: Order Comment: Speci men Type: URINE SPECIMENOrdering Facility: [facility] Address: [address] [place] [address] Performed By: #### 2 4356-8 ####[facility] LABORATORYCLIA [id number] [address] Urobilinogen Ql (U) Negative Normal Negative [facility] Comment on above: Order Comment: Speci men Type: URINE SPECIMENOrdering Facility: [facility] Address: [address] [place] [address] Performed By: #### 2 4356-8 ####[facility] LABORATORYCLIA [id number] [address] [place] WBC LM.HPF (Urine sed) [#/Area] 0-5 /HPF Normal 0-5 /HPF [facility] Comment on above: Order Comment: Speci men Type: URINE SPECIMENOrdering Facility: [facility] Address: [address] [place] [address] Performed By: #### 2 4356-8 ####[facility] LABORATORYCLIA [id number] [place] [address] CBC panel Auto (Bld)on 08-02 Erythrocyte distribution width (RBC) [Ratio] 13.6 % Normal 11.5-15.0 [facility] Comment on above: Order Comment: Speci men Type: BLOOD SPECIMENOrdering Facility: [facility] Address: [address] [place] [address] Performed By: #### 5 8410-2 ####JUAN[facility] LABORATORYCLIA [id number] [address] Hematocrit (Bld) [Volume fraction] 25.2 % Low 36.0-46.0 [facility] Comment on above: Order Comment: Speci men Type: BLOOD SPECIMENOrdering Facility: [facility] Address: [address] [place] [address] Performed By: #### 5 8410-2 ####[facility] LABORATORYCLIA [id number] [address] Hemoglobin (Bld) [Mass/Vol] 8.1 g/dL Low 11.5-15.5 [facility] Comment on above: Order Comment: Speci men Type: BLOOD SPECIMENOrdering Facility: [facility] Address: [address] [place] [address] Performed By: #### 5 8410-2 ####JUANP[facility] LABORATORYCLIA [id number] [address] MCH (RBC) [Entitic mass] 28.5 pg Normal 26.0-34.0 [facility] Comment on above: Order Comment: Speci men Type: BLOOD SPECIMENOrdering Facility: [facility] Address: [address] [place] [address] Performed By: #### 5 8410-2 ####[facility] LABORATORYCLIA [id number] [address] MCHC (RBC) [Mass/Vol] 32.1 g/dL Normal 30.5-36.0 [facility] Comment on above: Order Comment: Speci men Type: BLOOD SPECIMENOrdering Facility: [facility] Address: [address] [place] [address] Performed By: #### 5 8410-2 ####[facility] LABORATORYCLIA [id number] [address] MCV (RBC) [Entitic vol] 88.7 fL Normal 80.0-100.0 [facility] Comment on above: Order Comment: Speci men Type: BLOOD SPECIMENOrdering Facility: [facility] Address: [address] [place] [address] Performed By: #### 5 8410-2 ####[facility] LABORATORYCLIA [id number] [address] [place] Nucleated RBC (Bld) [#/Vol] 10*3/uL Normal <0.01 [facility] Comment on above: Order Comment: Speci men Type: BLOOD SPECIMENOrdering Facility: [facility] Address: [address] [place] [address] Performed By: #### 5 8410-2 ####[facility] LABORATORYCLIA [id number] [address] [place] Platelet mean volume (Bld) [Entitic vol] 10.2 fL Normal 9.0-12.7 [facility] Comment on above: Order Comment: Speci men Type: BLOOD SPECIMENOrdering Facility: [facility] Address: [address] [place] [address] Performed By: #### 5 8410-2 ####[facility] LABORATORYCLIA [id number] [place] [address] [place] Platelets (Bld) [#/Vol] 197 10*3/uL Normal 150-400 [facility] Comment on above: Order Comment: Speci men Type: BLOOD SPECIMENOrdering Facility: [facility] Address: [address] [place] [address] Performed By: #### 5 8410-2 ####[facility] LABORATORYCLIA [id number] [place] [address] [place] RBC (Bld) [#/Vol] 2.84 10*6/uL Low 3.90-5.20 [facility] Comment on above: Order Comment: Speci men Type: BLOOD SPECIMENOrdering Facility: [facility] Address: [place] [address] Performed By: #### 5 8410-2 ####[facility] LABORATORYCLIA [id number] [place] [address] [place] WBC (Bld) [#/Vol] 5.17 10*3/uL Normal 3.70-11.00 [facility] Comment on above: Order Comment: Speci men Type: BLOOD SPECIMENOrdering Facility: [facility] Address: [address] [place] [address] Performed By: #### 5 8410-2 ####[facility] LABORATORYCLIA [id number] [address] [place] CONSULT PROGon 08-02-2022 CONSULT PROG Normal [facility] Magnesium SerPl-mCncon 08-02 Magnesium [Mass/Vol] 2.1 mg/dL Normal 1.7-2.3 [facility] Comment on above: Order Comment: Speci men Type: BLOOD SPECIMENOrdering Facility: [facility] Address: [place] [address] Performed By: #### 1 9123-9, 54576-4 ####[facility] LABORATORYCLIA [id number] [place] [address] [place] NUTRITIONon 08-02-2022 NUTRITION Normal [facility] Renal function 2000 panelon 08-02-2022 Albumin [Mass/Vol] 3.4 g/dL Low 3.9-4.9 [facility] Comment on above: Order Comment: Speci men Type: BLOOD SPECIMENOrdering Facility: [facility] Address: [address] [place] [address] Performed By: #### 1 9123-9, 94100-7 ####[facility] LABORATORYCLIA [id number] [place] [address] [place] Anion gap [Moles/Vol] 7 mmol/L Low 9-18 [facility] Comment on above: Order Comment: Speci men Type: BLOOD SPECIMENOrdering Facility: [facility] Address: [address] [place] [address] Performed By: #### 1 239, ####J[facility] LABORATORYCLIA [id number] [place] [address] [place] Calcium [Mass/Vol] 8.5 mg/dL Normal 8.5-10.2 [facility] Comment on above: Order Comment: Speci men Type: BLOOD SPECIMENOrdering Facility: [facility] Address: [address] [place] [address] Performed By: #### 1 239, ####JUAN[facility] LABORATORYCLIA [id number] [place] [address] [place] Chloride [Moles/Vol] 103 mmol/L Normal 97-105 [facility] Comment on above: Order Comment: Speci men Type: BLOOD SPECIMENOrdering Facility: [facility] Address: [address] [place] [address] Performed By: #### 1 9123-05, ####J[facility] LABORATORYCLIA [id number] [place] [address] [place] CO2 [Moles/Vol] 31 mmol/L High 22-30 [facility] Comment on above: Order Comment: Speci men Type: BLOOD SPECIMENOrdering Facility: [facility] Address: [address] [place] [address] Performed By: #### 1 239, 92852-1 ####JUAN[facility]LO LABORATORYCLIA [id number] [place] [address] [place] Creatinine [Mass/Vol] 0.57 mg/dL Low 0.58-0.96 [facility] Comment on above: Order Comment: Speci men Type: BLOOD SPECIMENOrdering Facility: [facility] Address: [address] [place] [address] Performed By: #### 1 9123-9, 39442-5 ####JUANPABLO LABORATORYCLIA [id number] [place] [address] [place] ESTIMATED GLOMERULAR FILTRATION RATE 114 mL/min/1.73m??? Normal >=60 [facility] Comment on above: Order Comment: [place] fields Type: BLOOD SPECIMENOrdering Facility: [facility] Address: [address] [place], [place] [address] Result Comment: Arndy mated Glomerular Filtration Rate (eGFR) is calculated using the 2020 CKD-EPI creatinine equation. This equation utilizes serum creatinine, sex, and age as parameters. The creatinine assay has traceable calibration to isotope dilution-mass spectrometry. Refer to KDIGO guidelines for clinical interpretation. In patients with unstable renal function, e.g. those with acute kidney injury, the eGFR may not accurately reflect actual GFR. Performed By: #### 1 9123-9, 53845-1 ####[facility] LABORATORYCLIA [id number] [place] [address] [place] Glucose [Mass/Vol] 78 mg/dL Normal 74-99 [facility] Comment on above: Order Comment: [place] fields Type: BLOOD SPECIMENOrdering Facility: [facility] Address: [address] [place] [address] Result Comment: The [place] [employer] (ADA) provides guidance for cutoff values for fasting glucose and random glucose. The ADA defines fasting as no caloric intake for at least 8 hours. Fasting plasma glucose results between 100 to 125 mg/dL indicate increased risk for diabetes (prediabetes).Fasting plasma glucose results greater than or equal to 126 mg/dL meet the criteria for diagnosis of diabetes. In the absence of unequivocal hyperglycemia, results should be confirmed by repeat testing. In a patient with classic symptoms of hyperglycemia or hyperglycemic crisis, random plasma glucose results greater than or equal to 200 mg/dL meet the criteria for diagnosis of diabetes.Reference: Standards of Medical Care in Diabetes 2016, [place] [employer]. Diabetes Care. 2016.39(Suppl 1). Performed By: #### 1 9123-9, 04713-1 ####[facility] LABORATORYCLIA [id number] [place] [address] [place] Phosphate [Mass/Vol] 4.6 mg/dL Normal 2.7-4.8 [facility] Comment on above: Order Comment: Speci men Type: BLOOD SPECIMENOrdering Facility: [facility] Address: [address] [place] [address] Performed By: #### 1 9123-9, 56978-2 ####[facility] LABORATORYCLIA [id number] [address] [place] Potassium [Moles/Vol] 4.2 mmol/L Normal 3.7-5.1 [facility] Comment on above: Order Comment: Speci men Type: BLOOD SPECIMENOrdering Facility: [facility] Address: [address] [place] [address] Performed By: #### 1 9123-9, 60450-4 ####[facility] LABORATORYCLIA [id number] [place] [address] [place] Sodium [Moles/Vol] 141 mmol/L Normal 136-144 [facility] Comment on above: Order Comment: Speci men Type: BLOOD SPECIMENOrdering Facility: [facility] Address: [place] [address] Performed By: #### 1 9123-9, 48671-8 ####[facility] LABORATORYCLIA [id number] [place] [address] [place] Urea nitrogen [Mass/Vol] 21 mg/dL Normal 7-21 [facility] Comment on above: Order Comment: Speci men Type: BLOOD SPECIMENOrdering Facility: [facility] Address: [place] [address] Performed By: #### 1 9123-9, 07803-0 ####[facility] LABORATORYCLIA [id number] [place] [address] [place] CASE MANAGEMon 08-01-2022 CASE MANAGEM Normal [facility] CONSULTon 08-01-2022 CONSULT Normal [facility] Magnesium SerPl-mCncon 08-01 Magnesium [Mass/Vol] 1.8 mg/dL Normal 1.7-2.3 [facility] Comment on above: Order Comment: Speci men Type: BLOOD SPECIMENOrdering Facility: [facility] Address: [place] [address] Performed By: #### 1 9123-9, 85751-8 ####JU[facility] LABORATORYCLIA [id number] [place] [address] [place] NURSING PROGon 08-01-2022 NURSING PROG Normal [facility] NUTRITIONon 08-01-2022 NUTRITION Normal [facility] Renal function 2000 panelon 08-01-2022 Albumin [Mass/Vol] 3.2 g/dL Low 3.9-4.9 [facility] Comment on above: Order Comment: Speci men Type: BLOOD SPECIMENOrdering Facility: [facility] Address: [address] Performed By: #### 1 9123-9, 21640-3 ####J[facility]AN[facility] LABORATORYCLIA [id number] [place] [address] [place] Anion gap [Moles/Vol] 7 mmol/L Low - [facility] Comment on above: Order Comment: Speci men Type: BLOOD SPECIMENOrdering Facility: [facility] Address: [address] Performed By: #### 1 9123-9, 19910-2 ####JUAN[facility] LABORATORYCLIA [id number] [place] [address] [place] Calcium [Mass/Vol] 8.4 mg/dL Low 8.5-10.2 [facility] Comment on above: Order Comment: Speci men Type: BLOOD SPECIMENOrdering Facility: [facility] Address: [address] Performed By: #### 1 9123-9, 47931-1 ####JUAN[facility] LABORATORYCLIA [id number] [place] [address] [place] Chloride [Moles/Vol] 103 mmol/L Normal 97-105 [facility] Comment on above: Order Comment: Speci men Type: BLOOD SPECIMENOrdering Facility: [facility] Address: [address] Performed By: #### 1 9123-9, 92870-8 ####JUAN[facility] LABORATORYCLIA [id number] [place] [address] [place] CO2 [Moles/Vol] 30 mmol/L Normal 22-30 [facility] Comment on above: Order Comment: Speci men Type: BLOOD SPECIMENOrdering Facility: [facility] Address: [address] [place] [address] Performed By: #### 1 9123-9, 60008-3 ####[facility] LABORATORYCLIA [id number] [place] [address] [place] Creatinine [Mass/Vol] 0.58 mg/dL Normal 0.58-0.96 [facility] Comment on above: Order Comment: Speci men Type: BLOOD SPECIMENOrdering Facility: [facility] Address: [address] [place] [address] Performed By: #### 1 9123-9, 78280-7 ####[facility] LABORATORYCLIA [id number] [address] ESTIMATED GLOMERULAR FILTRATION RATE 114 mL/min/1.73m??? Normal >=60 [facility] Comment on above: Order Comment: Speci men Type: BLOOD SPECIMENOrdering Facility: [facility] Address: [address] [place] [address] Result Comment: Randy mated Glomerular Filtration Rate (eGFR) is calculated using the 2020 CKD-EPI creatinine equation. This equation utilizes serum creatinine, sex, and age as parameters. The creatinine assay has traceable calibration to isotope dilution-mass spectrometry. Refer to KDIGO guidelines for clinical interpretation. In patients with unstable renal function, e.g. those with acute kidney injury, the eGFR may not accurately reflect actual GFR. Performed By: #### 1 9123-9, 65546-8 ####[facility] LABORATORYCLIA [id number] [place] [id number] [place] Glucose [Mass/Vol] 86 mg/dL Normal 74-99 [facility] Comment on above: Order Comment: Speci men Type: BLOOD SPECIMENOrdering Facility: [facility] Address: [address] [place] [address] Result Comment: The [place] Diabetes [employer] (ADA) provides guidance for cutoff values for fasting glucose and random glucose. The ADA defines fasting as no caloric intake for at least 8 hours. Fasting plasma glucose results between 100 to 125 mg/dL indicate increased risk for diabetes (prediabetes).Fasting plasma glucose results greater than or equal to 126 mg/dL meet the criteria for diagnosis of diabetes. In the absence of unequivocal hyperglycemia, results should be confirmed by repeat testing. In a patient with classic symptoms of hyperglycemia or hyperglycemic crisis, random plasma glucose results greater than or equal to 200 mg/dL meet the criteria for diagnosis of diabetes.Reference: Standards of Medical Care in Diabetes 2016, [place] [employer]. Diabetes Care. 2016.39(Suppl 1). Performed By: #### 1 9123-9, 97360-6 ####JUAN[facility] LABORATORYCLIA [id number] [place] [address] [place] Phosphate [Mass/Vol] 5.0 mg/dL High 2.7-4.8 [facility] Comment on above: Order Comment: [place] Type: BLOOD SPECIMENOrdering Facility: [facility] Address: [address] [place] [address] Performed By: #### 1 9123-9, 45633-9 ####[facility] LABORATORYCLIA [id number] [place] [address] [place] Potassium [Moles/Vol] 4.1 mmol/L Normal 3.7-5.1 [facility] Comment on above: Order Comment: Sharoni donnie Type: BLOOD SPECIMENOrdering Facility: [facility] Address: [address] [place] [address] Performed By: #### 1 9123-9, 68212-9 ####JUANPABLO LABORATORYCLIA [id number] [place] [address] [place] Sodium [Moles/Vol] 140 mmol/L Normal 136-144 [facility] Comment on above: Order Comment: Sharoni men Type: BLOOD SPECIMENOrdering Facility: [facility] Address: [address] [place] [address] Performed By: #### 1 9123-9, 90078-1 ####JUANPAB[facility] LABORATORYCLIA [id number] [place] [address] [place] Urea nitrogen [Mass/Vol] 20 mg/dL Normal 7-21 [facility] Comment on above: Order Comment: Speci men Type: BLOOD SPECIMENOrdering Facility: [facility] Address: [address] [place] [address] Performed By: #### 1 9123-9, 50252-6 ####[facility] LABORATORYCLIA [id number] [place] [address] [place] ALLIED HEALTHon 07-31-2022 ALLIED HEALTH Normal [facility] Magnesium SerPl-mCncon 07-31 Magnesium [Mass/Vol] 1.9 mg/dL Normal 1.7-2.3 [facility] Comment on above: Order Comment: Speci men Type: BLOOD SPECIMENOrdering Facility: [facility] Address: [address] [place] [address] Performed By: #### 1 9123-9, 24200-1 ####[facility] LABORATORYCLIA [id number] [place] [address] [place] NUTRITIONon 07-31-2022 NUTRITION Normal [facility] Renal function 2000 panelon 07-31-2022 Albumin [Mass/Vol] 3.7 g/dL Low 3.9-4.9 [facility] Comment on above: Order Comment: Speci men Type: BLOOD SPECIMENOrdering Facility: [facility] Address: [address] [place] [address] Performed By: #### 1 9123-9, 84668-5 ####[facility] LABORATORYCLIA [id number] [place] [address] [place] Anion gap [Moles/Vol] 8 mmol/L Low 9-18 [facility] Comment on above: Order Comment: Speci men Type: BLOOD SPECIMENOrdering Facility: [facility] Address: [address] [place] [address] Performed By: #### 1 9123-9, 79824-0 ####[facility] LABORATORYCLIA [id number] [place] [address] [place] Calcium [Mass/Vol] 8.7 mg/dL Normal 8.5-10.2 [facility] Comment on above: Order Comment: Speci men Type: BLOOD SPECIMENOrdering Facility: [facility] Address: [address] [place] [address] Performed By: #### 1 9123-9, ####[facility] LABORATORYCLIA [id number] [place] [address] [place] Chloride [Moles/Vol] 101 mmol/L Normal 97-105 [facility] Comment on above: Order Comment: Speci men Type: BLOOD SPECIMENOrdering Facility: [facility] Address: [address] [place] [address] Performed By: #### 1 9123-9, ####[facility] LABORATORYCLIA [id number] [place] [address] [place] CO2 [Moles/Vol] 28 mmol/L Normal 22-30 [facility] Comment on above: Order Comment: Speci men Type: BLOOD SPECIMENOrdering Facility: [facility] Address: [address] [place] [address] Performed By: #### 1 9123-9, ####[facility] LABORATORYCLIA [id number] [place] [address] [place] Creatinine [Mass/Vol] 0.55 mg/dL Low 0.58-0.96 [facility] Comment on above: Order Comment: Speci men Type: BLOOD SPECIMENOrdering Facility: [facility] Address: [address] [place] [address] Performed By: #### 1 9123-9, ####[facility] LABORATORYCLIA [id number] [place] [address] [place] ESTIMATED GLOMERULAR FILTRATION RATE 115 mL/min/1.73m??? Normal >=60 [facility] Comment on above: Order Comment: Speci men Type: BLOOD SPECIMENOrdering Facility: [facility] Address: [address] [place] [address] Result Comment: Randy mated Glomerular Filtration Rate (eGFR) is calculated using the 2021 CKD-EPI creatinine equation. This equation utilizes serum creatinine, sex, and age as parameters. The creatinine assay has traceable calibration to isotope dilution-mass spectrometry. Refer to KDIGO guidelines for clinical interpretation. In patients with unstable renal function, e.g. those with acute kidney injury, the eGFR may not accurately reflect actual GFR. Performed By: #### 1 9123-9, 77288-1 ####JUANPABLO LABORATORYCLIA [id number] [place] [id number] [place] Glucose [Mass/Vol] 119 mg/dL High 74-99 [facility] Comment on above: Order Comment: Specjohnie men Type: BLOOD SPECIMENOrdering Facility: [facility] Address: [address] [place] [id number] Result Comment: The [place] [employer] (ADA) provides guidance for cutoff values for fasting glucose and random glucose. The ADA defines fasting as no caloric intake for at least 8 hours. Fasting plasma glucose results between 100 to 125 mg/dL indicate increased risk for diabetes (prediabetes).Fasting plasma glucose results greater than or equal to 126 mg/dL meet the criteria for diagnosis of diabetes. In the absence of unequivocal hyperglycemia, results should be confirmed by repeat testing. In a patient with classic symptoms of hyperglycemia or hyperglycemic crisis, random plasma glucose results greater than or equal to 200 mg/dL meet the criteria for diagnosis of diabetes.Reference: Standards of Medical Care in Diabetes 2016, [place] [employer]. Diabetes Care. 2016.39(Suppl 1). Performed By: #### 1 9123-9, 62578-3 ####[facility] LABORATORYCLIA [id number] [place] [id number] [place] Phosphate [Mass/Vol] 2.9 mg/dL Normal 2.7-4.8 [facility] Comment on above: Order Comment: [place] fields Type: BLOOD SPECIMENOrdering Facility: [facility] Address: [place] [address] Performed By: #### 1 9123-9, 78426-3 ####[facility] LABORATORYCLIA [id number] [place] [address] [place] Potassium [Moles/Vol] 4.4 mmol/L Normal 3.7-5.1 [facility] Comment on above: Order Comment: Speci men Type: BLOOD SPECIMENOrdering Facility: [facility] Address: [address] [place] [address] Performed By: #### 1 9123-9, 65508-1 ####J[facility]AN[facility]ABLO LABORATORYCLIA [id number] [place] [address] [place] Sodium [Moles/Vol] 137 mmol/L Normal 136-144 [facility] Comment on above: Order Comment: Speci men Type: BLOOD SPECIMENOrdering Facility: [facility] Address: [address] [place] [address] Performed By: #### 1 9123-9, 40981-4 ####J[facility]AN[facility] LABORATORYCLIA [id number] [place] [address] [place] Urea nitrogen [Mass/Vol] 21 mg/dL Normal 7-21 [facility] Comment on above: Order Comment: Speci men Type: BLOOD SPECIMENOrdering Facility: [facility] Address: [address] [place] [address] Performed By: #### 1 9123-9, 76179-6 ####J[facility]AN[facility] LABORATORYCLIA [id number] [place] [address] [place] XR CHEST 1V FRONTALon 2021 XR CHEST 1V FRONTAL Normal [facility] ALLIED HEALTHon 07-30-2022 ALLIED HEALTH Normal [facility] ALLIED HEALTH Normal [facility] Normal [facility] Basic metabolic 2000 panelon 07-30-2022 Anion gap [Moles/Vol] 8 mmol/L Low 9-18 [facility] Comment on above: Order Comment: Speci men Type: BLOOD SPECIMENOrdering Facility: [facility] Address: [address] [place] [address] Performed By: #### 2 4321-2, 54427-9, 2777-1 ####[facility] LABORATORYCLIA [id number] [place] [address] [place] Calcium [Mass/Vol] 9.1 mg/dL Normal 8.5-10.2 [facility] Comment on above: Order Comment: Speci men Type: BLOOD SPECIMENOrdering Facility: [facility] Address: [address] [place] [address] Performed By: #### 2 4321-2, , 2776-09 ####[facility] LABORATORYCLIA [id number] [place] [address] [place] Chloride [Moles/Vol] 100 mmol/L Normal 97-105 [facility] Comment on above: Order Comment: Speci men Type: BLOOD SPECIMENOrdering Facility: [facility] Address: [address] [place] [address] Performed By: #### 2 4321-2, , 2776-09 ####[facility] LABORATORYCLIA [id number] [place] [address] [place] CO2 [Moles/Vol] 27 mmol/L Normal 22-30 [facility] Comment on above: Order Comment: Speci men Type: BLOOD SPECIMENOrdering Facility: [facility] Address: [address] [place] [address] Performed By: #### 2 4321-2, , 2776-09 ####[facility] LABORATORYCLIA [id number] [place] [address] [place] Creatinine [Mass/Vol] 0.51 mg/dL Low 0.58-0.96 [facility] Comment on above: Order Comment: Speci men Type: BLOOD SPECIMENOrdering Facility: [facility] Address: [address] [place] [address] Performed By: #### 2 4321-2, , 2776-09 ####[facility] LABORATORYCLIA [id number] [place] [address] [place] ESTIMATED GLOMERULAR FILTRATION RATE 117 mL/min/1.73m??? Normal >=60 [facility] Comment on above: Order Comment: Speci men Type: BLOOD SPECIMENOrdering Facility: [facility] Address: [address] [place] [address] Result Comment: Randy mated Glomerular Filtration Rate (eGFR) is calculated using the 2020 CKD-EPI creatinine equation. This equation utilizes serum creatinine, sex, and age as parameters. The creatinine assay has traceable calibration to isotope dilution-mass spectrometry. Refer to KDIGO guidelines for clinical interpretation. In patients with unstable renal function, e.g. those with acute kidney injury, the eGFR may not accurately reflect actual GFR. Performed By: #### 2 4321-2, , 2776-09 ####[facility] LABORATORYCLIA [id number] [place] [address] [place] Glucose [Mass/Vol] 142 mg/dL High 74-99 [facility] Comment on above: Order Comment: [place] fields Type: BLOOD SPECIMENOrdering Facility: [facility] Address: [address] [place] [address] Result Comment: The [place] [employer] (ADA) provides guidance for cutoff values for fasting glucose and random glucose. The ADA defines fasting as no caloric intake for at least 8 hours. Fasting plasma glucose results between 100 to 125 mg/dL indicate increased risk for diabetes (prediabetes).Fasting plasma glucose results greater than or equal to 126 mg/dL meet the criteria for diagnosis of diabetes. In the absence of unequivocal hyperglycemia, results should be confirmed by repeat testing. In a patient with classic symptoms of hyperglycemia or hyperglycemic crisis, random plasma glucose results greater than or equal to 200 mg/dL meet the criteria for diagnosis of diabetes.Reference: Standards of Medical Care in Diabetes 2016, [place] [employer]. Diabetes Care. 2016.39(Suppl 1). Performed By: #### 2 4321-2, , 2776-09 ####J[facility]AN[facility] LABORATORYCLIA [id number] [place] [address] [place] Potassium [Moles/Vol] 4.8 mmol/L Normal 3.7-5.1 [facility] Comment on above: Order Comment: [place] Type: BLOOD SPECIMENOrdering Facility: [facility] Address: [address] [place] [id number] Performed By: #### 2 4321-2, , 2776-09 ####JUANPABLO LABORATORYCLIA [id number] [place] [address] [place] Sodium [Moles/Vol] 135 mmol/L Low 136-144 [facility] Comment on above: Order Comment: Speci men Type: BLOOD SPECIMENOrdering Facility: [facility] Address: [address] [place] [address] Performed By: #### 2 4321-2, 03890-9, 2777-1 ####[facility] LABORATORYCLIA [id number] [place] [address] [place] Urea nitrogen [Mass/Vol] 11 mg/dL Normal 7-21 [facility] Comment on above: Order Comment: Speci men Type: BLOOD SPECIMENOrdering Facility: [facility] Address: [address] [place] [address] Performed By: #### 2 4321-2, 45522-0, 2776-09 ####[facility] LABORATORYCLIA [id number] [place] [address] [place] CASE MGT INIT ASSESon 2021 [facility] CBC W Auto Differential pane l (Bld)on 07-30-2022 Basophils (Bld) [#/Vol] 10*3/uL Normal <0.11 [facility] Comment on above: Order Comment: Speci men Type: BLOOD SPECIMENOrdering Facility: [facility] Address: [address] [place] [address] Performed By: #### 5 7021-8 ####[facility] LABORATORYCLIA [id number] [place] [address] [place] Basophils/100 WBC (Bld) 0.1 % Normal [facility] Comment on above: Order Comment: Speci men Type: BLOOD SPECIMENOrdering Facility: [facility] Address: [address] [place] [address] Performed By: #### 5 7021-8 ####[facility] LABORATORYCLIA [id number] [place] [address] [place] Differential cell count method Nom (Bld) Auto Normal [facility] Comment on above: Order Comment: Speci men Type: BLOOD SPECIMENOrdering Facility: [facility] Address: [address] [place] [address] Performed By: #### 5 7021-8 ####JUANP[facility]LO LABORATORYCLIA [id number] [address] [place] Eosinophils (Bld) [#/Vol] 10*3/uL Normal <0.46 [facility] Comment on above: Order Comment: Speci men Type: BLOOD SPECIMENOrdering Facility: [facility] Address: [address] [place] [address] Performed By: #### 5 7021-8 ####J[facility]AN[facility] LABORATORYCLIA [id number] [address] Eosinophils/100 WBC (Bld) 0.0 % Normal [facility] Comment on above: Order Comment: Speci men Type: BLOOD SPECIMENOrdering Facility: [facility] Address: [address] [place] [address] Performed By: #### 5 7021-8 ####J[facility]AN[facility] LABORATORYCLIA [id number] [address] Erythrocyte distribution width (RBC) [Ratio] 13.3 % Normal 11.5-15.0 [facility] Comment on above: Order Comment: Speci men Type: BLOOD SPECIMENOrdering Facility: [facility] Address: [address] [place] [address] Performed By: #### 5 7021-8 ####J[facility]AN[facility] LABORATORYCLIA [id number] [address] Hematocrit (Bld) [Volume fraction] 27.2 % Low 36.0-46.0 [facility] Comment on above: Order Comment: Speci men Type: BLOOD SPECIMENOrdering Facility: [facility] Address: [address] [place] [address] Performed By: #### 5 7021-8 ####J[facility]AN[facility] LABORATORYCLIA [id number] [address] [place] Hemoglobin (Bld) [Mass/Vol] 9.0 g/dL Low 11.5-15.5 [facility] Comment on above: Order Comment: Speci men Type: BLOOD SPECIMENOrdering Facility: [facility] Address: [address] [place] [address] Performed By: #### 5 7021-8 ####J[facility] LABORATORYCLIA [id number] [place] [address] [place] Immature granulocytes (Bld) [#/Vol] 0.05 10*3/uL Normal <0.10 [facility] Comment on above: Order Comment: Speci men Type: BLOOD SPECIMENOrdering Facility: [facility] Address: [address] [place] [address] Performed By: #### 5 7021-8 ####JUAN[facility] LABORATORYCLIA [id number] [address] [place] [facility] Immature granulocytes/100 WBC (Bld) 0.4 % Normal [facility] Comment on above: Order Comment: Speci men Type: BLOOD SPECIMENOrdering Facility: [facility] Address: [address] [place] [address] Performed By: #### 5 7021-8 ####J[facility]AN[facility] LABORATORYCLIA [id number] [place] [address] [place] Lymphocytes (Bld) [#/Vol] 1.10 10*3/uL Normal 1.00-4.00 [facility] Comment on above: Order Comment: Speci men Type: BLOOD SPECIMENOrdering Facility: [facility] Address: [address] [place] [address] Performed By: #### 5 7021-8 ####J[facility]AN[facility] LABORATORYCLIA [id number] [place] [address] [place] Lymphocytes/100 WBC (Bld) 9.5 % Normal [facility] Comment on above: Order Comment: Speci men Type: BLOOD SPECIMENOrdering Facility: [facility] Address: [address] [place] [address] Performed By: #### 5 7021-8 ####JUANPABLO LABORATORYCLIA [id number] [address] MCH (RBC) [Entitic mass] 28.8 pg Normal 26.0-34.0 [facility] Comment on above: Order Comment: Speci men Type: BLOOD SPECIMENOrdering Facility: [facility] Address: [address] [place] [address] Performed By: #### 5 7021-8 ####[facility] LABORATORYCLIA [id number] [address] [place] MCHC (RBC) [Mass/Vol] 33.1 g/dL Normal 30.5-36.0 [facility] Comment on above: Order Comment: Speci men Type: BLOOD SPECIMENOrdering Facility: [facility] Address: [address] [place] [address] Performed By: #### 5 7021-8 ####J[facility]AN[facility] LABORATORYCLIA [id number] [address] MCV (RBC) [Entitic vol] 86.9 fL Normal 80.0-100.0 [facility] Comment on above: Order Comment: Speci men Type: BLOOD SPECIMENOrdering Facility: [facility] Address: [address] [place] [address] Performed By: #### 5 7021-8 ####J[facility]AN[facility] LABORATORYCLIA [id number] [address] Monocytes (Bld) [#/Vol] 0.81 10*3/uL Normal <0.87 [facility] Comment on above: Order Comment: Speci men Type: BLOOD SPECIMENOrdering Facility: [facility] Address: [address] [place] [address] Performed By: #### 5 7021-8 ####JUAN[facility] LABORATORYCLIA [id number] [address] Monocytes/100 WBC (Bld) 7.0 % Normal [facility] Comment on above: Order Comment: Speci men Type: BLOOD SPECIMENOrdering Facility: [facility] Address: [address] [place] [address] Performed By: #### 5 7021-8 ####J[facility] LABORATORYCLIA [id number] [place] [address] [place] Neutrophils (Bld) [#/Vol] 9.57 10*3/uL High 1.45-7.50 [facility] Comment on above: Order Comment: Speci men Type: BLOOD SPECIMENOrdering Facility: [facility] Address: [address] [place] [address] Performed By: #### 5 7021-8 ####[facility] LABORATORYCLIA [id number] [place] [address] [place] Neutrophils/100 WBC (Bld) 83.0 % Normal [facility] Comment on above: Order Comment: Speci men Type: BLOOD SPECIMENOrdering Facility: [facility] Address: [address] [place] [address] Performed By: #### 5 7021-8 ####[facility] LABORATORYCLIA [id number] [place] [address] [place] Nucleated RBC (Bld) [#/Vol] 10*3/uL Normal <0.01 [facility] Comment on above: Order Comment: Speci men Type: BLOOD SPECIMENOrdering Facility: [facility] Address: [address] [place] [address] Performed By: #### 5 7021-8 ####J[facility]AN[facility] LABORATORYCLIA [id number] [place] [address] [place] Nucleated RBC/100 WBC (Bld) [Ratio] 0.0 /100 WBC Normal [facility] Comment on above: Order Comment: Speci men Type: BLOOD SPECIMENOrdering Facility: [facility] Address: [address] [place] [address] Performed By: #### 5 7021-8 ####[facility] LABORATORYCLIA [id number] [place] [address] [place] Platelet mean volume (Bld) [Entitic vol] 10.3 fL Normal 9.0-12.7 [facility] Comment on above: Order Comment: Speci men Type: BLOOD SPECIMENOrdering Facility: [facility] Address: [address] [place] [address] Performed By: #### 5 7021-8 ####[facility] LABORATORYCLIA [id number] [place] [address] [place] Platelets (Bld) [#/Vol] 211 10*3/uL Normal 150-400 [facility] Comment on above: Order Comment: Speci men Type: BLOOD SPECIMENOrdering Facility: [facility] Address: [address] [place] [address] Performed By: #### 5 7021-8 ####[facility] LABORATORYCLIA [id number] [place] [address] [place] RBC (Bld) [#/Vol] 3.13 10*6/uL Low 3.90-5.20 [facility] Comment on above: Order Comment: Speci men Type: BLOOD SPECIMENOrdering Facility: [facility] Address: [address] [place] [address] Performed By: #### 5 7021-8 ####[facility] LABORATORYCLIA [id number] [place] [address] [place] WBC (Bld) [#/Vol] 11.54 10*3/uL High 3.70-11.00 [facility] Comment on above: Order Comment: Speci men Type: BLOOD SPECIMENOrdering Facility: [facility] Address: [address] [place] [address] Performed By: #### 5 7021-8 ####[facility] LABORATORYCLIA [id number] [place] [address] [place] Basophils (Bld) [#/Vol] 10*3/uL Normal <0.11 [facility] Comment on above: Order Comment: Speci men Type: BLOOD SPECIMENOrdering Facility: [facility] Address: [address] [place] [address] Performed By: #### 5 7021-8 ####[facility] LABORATORYCLIA [id number] [place] [address] [place] Basophils/100 WBC (Bld) 0.1 % Normal [facility] Comment on above: Order Comment: Speci men Type: BLOOD SPECIMENOrdering Facility: [facility] Address: [address] [place] [address] Performed By: #### 5 7021-8 ####[facility] LABORATORYCLIA [id number] [place] [address] [place] Differential cell count method Nom (Bld) Auto Normal [facility] Comment on above: Order Comment: Speci men Type: BLOOD SPECIMENOrdering Facility: [facility] Address: [address] [place] [address] Performed By: #### 5 7021-8 ####[facility] LABORATORYCLIA [id number] [place] [address] [place] Eosinophils (Bld) [#/Vol] 10*3/uL Normal <0.46 [facility] Comment on above: Order Comment: Speci men Type: BLOOD SPECIMENOrdering Facility: [facility] Address: [address] [place] [address] Performed By: #### 5 7021-8 ####[facility] LABORATORYCLIA [id number] [place] [address] [place] Eosinophils/100 WBC (Bld) 0.0 % Normal [facility] Comment on above: Order Comment: Speci men Type: BLOOD SPECIMENOrdering Facility: [facility] Address: [address] [place] [address] Performed By: #### 5 7021-8 ####[facility] LABORATORYCLIA [id number] [place] [address] [place] Erythrocyte distribution width (RBC) [Ratio] 13.2 % Normal 11.5-15.0 [facility] Comment on above: Order Comment: Speci men Type: BLOOD SPECIMENOrdering Facility: [facility] Address: [address] [place] [address] Performed By: #### 5 7021-8 ####[facility] LABORATORYCLIA [id number] [place] [address] [place] Hematocrit (Bld) [Volume fraction] 29.0 % Low 36.0-46.0 [facility] Comment on above: Order Comment: Speci men Type: BLOOD SPECIMENOrdering Facility: [facility] Address: [address] [address] Performed By: #### 5 7021-8 ####[facility] LABORATORYCLIA [id number] [place] [address] [place] Hemoglobin (Bld) [Mass/Vol] 9.8 g/dL Low 11.5-15.5 [facility] Comment on above: Order Comment: Speci men Type: BLOOD SPECIMENOrdering Facility: [facility] Address: [address] [address] Performed By: #### 5 7021-8 ####[facility] LABORATORYCLIA [id number] [address] [place] Immature granulocytes (Bld) [#/Vol] 0.06 10*3/uL Normal <0.10 [facility] Comment on above: Order Comment: Speci men Type: BLOOD SPECIMENOrdering Facility: [facility] Address: [address] [address] Performed By: #### 5 7021-8 ####[facility] LABORATORYCLIA [id number] [address] [place] Immature granulocytes/100 WBC (Bld) 0.5 % Normal [facility] Comment on above: Order Comment: Speci men Type: BLOOD SPECIMENOrdering Facility: [facility] Address: [address] [address] Performed By: #### 5 7021-8 ####[facility] LABORATORYCLIA [id number] [place] [address] [place] Lymphocytes (Bld) [#/Vol] 1.09 10*3/uL Normal 1.00-4.00 [facility] Comment on above: Order Comment: Speci men Type: BLOOD SPECIMENOrdering Facility: [facility] Address: [address] [address] Performed By: #### 5 7021-8 ####[facility] LABORATORYCLIA [id number] [address] [place] Lymphocytes/100 WBC (Bld) 9.8 % Normal [facility] Comment on above: Order Comment: Speci men Type: BLOOD SPECIMENOrdering Facility: [facility] Address: [address] [address] Performed By: #### 5 7021-8 ####[facility] LABORATORYCLIA [id number] [address] [place] [facility] MCH (RBC) [Entitic mass] 29.4 pg Normal 26.0-34.0 [facility] Comment on above: Order Comment: Speci men Type: BLOOD SPECIMENOrdering Facility: [facility] Address: [address] [address] Performed By: #### 5 7021-8 ####[facility] LABORATORYCLIA [id number] [address] [place] MCHC (RBC) [Mass/Vol] 33.8 g/dL Normal 30.5-36.0 [facility] Comment on above: Order Comment: Speci men Type: BLOOD SPECIMENOrdering Facility: [facility] Address: [address] [address] Performed By: #### 5 7021-8 ####[facility] LABORATORYCLIA [id number] [address] [place] [facility] MCV (RBC) [Entitic vol] 87.1 fL Normal 80.0-100.0 [facility] Comment on above: Order Comment: Speci men Type: BLOOD SPECIMENOrdering Facility: [facility] Address: [address] [address] Performed By: #### 5 7021-8 ####[facility] LABORATORYCLIA [id number] [address] [place] Monocytes (Bld) [#/Vol] 0.54 10*3/uL Normal <0.87 [facility] Comment on above: Order Comment: Speci men Type: BLOOD SPECIMENOrdering Facility: [facility] Address: [address] [address] Performed By: #### 5 7021-8 ####J[facility]AN[facility] LABORATORYCLIA [id number] [place] [address] [place] Monocytes/100 WBC (Bld) 4.9 % Normal [facility] Comment on above: Order Comment: Speci men Type: BLOOD SPECIMENOrdering Facility: [facility] Address: [address] [place] [address] Performed By: #### 5 7021-8 ####J[facility] LABORATORYCLIA [id number] [place] [address] [place] Neutrophils (Bld) [#/Vol] 9.39 10*3/uL High 1.45-7.50 [facility] Comment on above: Order Comment: Speci men Type: BLOOD SPECIMENOrdering Facility: [facility] Address: [address] [place] [address] Performed By: #### 5 7021-8 ####J[facility]AN[facility] LABORATORYCLIA [id number] [place] [address] [place] Neutrophils/100 WBC (Bld) 84.7 % Normal [facility] Comment on above: Order Comment: Speci men Type: BLOOD SPECIMENOrdering Facility: [facility] Address: [address] [place] [address] Performed By: #### 5 7021-8 ####J[facility]AN[facility] LABORATORYCLIA [id number] [place] [address] [place] Nucleated RBC (Bld) [#/Vol] 10*3/uL Normal <0.01 [facility] Comment on above: Order Comment: Speci men Type: BLOOD SPECIMENOrdering Facility: [facility] Address: [address] [place] [address] Performed By: #### 5 7021-8 ####[facility] LABORATORYCLIA [id number] [place] [address] [place] Nucleated RBC/100 WBC (Bld) [Ratio] 0.0 /100 WBC Normal [facility] Comment on above: Order Comment: Speci men Type: BLOOD SPECIMENOrdering Facility: [facility] Address: [address] [place] [address] Performed By: #### 5 7021-8 ####[facility] LABORATORYCLIA [id number] [place] [id number] [place] Platelet mean volume (Bld) [Entitic vol] 10.7 fL Normal 9.0-12.7 [facility] Comment on above: Order Comment: Speci men Type: BLOOD SPECIMENOrdering Facility: [facility] Address: [address] [place] [address] Performed By: #### 5 7021-8 ####[facility] LABORATORYCLIA [id number] [place] [address] [place] Platelets (Bld) [#/Vol] 222 10*3/uL Normal 150-400 [facility] Comment on above: Order Comment: Speci men Type: BLOOD SPECIMENOrdering Facility: [facility] Address: [address] [place] [address] Performed By: #### 5 7021-8 ####[facility] LABORATORYCLIA [id number] [place] [address] [place] RBC (Bld) [#/Vol] 3.33 10*6/uL Low 3.90-5.20 [facility] Comment on above: Order Comment: Speci men Type: BLOOD SPECIMENOrdering Facility: [facility] Address: [address] [place] [address] Performed By: #### 5 7021-8 ####[facility] LABORATORYCLIA [id number] [place] [address] [place] WBC (Bld) [#/Vol] 11.09 10*3/uL High 3.70-11.00 [facility] Comment on above: Order Comment: Speci men Type: BLOOD SPECIMENOrdering Facility: [facility] Address: [address] [place], [place] [address] Performed By: #### 5 7021-8 ####[facility] LABORATORYCLIA [id number] [place] [address] [place] CONSULT PROGon 07-30-2022 CONSULT PROG Normal [facility] CRP SerPl-mCncon 07-30-2022 CRP [Mass/Vol] 6.6 mg/dL High <0.9 [facility] Comment on above: Order Comment: Speci men Type: BLOOD SPECIMENOrdering Facility: [facility] Address: [address] [place] [address] Performed By: #### 1 988-5, 70681-0 ####[facility] LABORATORYCLIA [id number] [place] [address] [place] Hepatic function 2000 panelo n 07-30-2022 Albumin [Mass/Vol] 3.4 g/dL Low 3.9-4.9 [facility] Comment on above: Order Comment: Speci men Type: BLOOD SPECIMENOrdering Facility: [facility] Address: [address] [place] [address] Performed By: #### 1 988-5, 51432-0 ####[facility] LABORATORYCLIA [id number] [place] [address] [place] ALP [Catalytic activity/Vol] 78 U/L Normal 34-123 [facility] Comment on above: Order Comment: Speci men Type: BLOOD SPECIMENOrdering Facility: [facility] Address: [address] [place] [address] Performed By: #### 1 988-5, 31613-5 ####[facility] LABORATORYCLIA [id number] [address] [place] ALT [Catalytic activity/Vol] 15 U/L Normal 7-38 [facility] Comment on above: Order Comment: Speci men Type: BLOOD SPECIMENOrdering Facility: [facility] Address: [address] [place] [address] Performed By: #### 1 988-5, 16054-1 ####[facility] LABORATORYCLIA [id number] [address] STATES OF [facility] AST [Catalytic activity/Vol] 18 U/L Normal 13-35 [facility] Comment on above: Order Comment: Speci men Type: BLOOD SPECIMENOrdering Facility: [facility] Address: [address] [place] [address] Performed By: #### 1 988-5, 22539-2 ####[facility] LABORATORYCLIA [id number] [address] Bilirubin [Mass/Vol] 0.2 mg/dL Normal 0.2-1.3 [facility] Comment on above: Order Comment: Speci men Type: BLOOD SPECIMENOrdering Facility: [facility] Address: [address] [place] [address] Performed By: #### 1 988-5, 21390-9 ####[facility] LABORATORYCLIA [id number] [address] Bilirubin.conjugated [Mass/Vol] mg/dL Normal <0.2 [facility] Comment on above: Order Comment: Speci men Type: BLOOD SPECIMENOrdering Facility: [facility] Address: [address] [place] [address] Performed By: #### 1 988-5, 22266-4 ####[facility] LABORATORYCLIA [id number] [address] Protein [Mass/Vol] 6.1 g/dL Low 6.3-8.0 [facility] Comment on above: Order Comment: Speci men Type: BLOOD SPECIMENOrdering Facility: [facility] Address: [address] [place] [address] Performed By: #### 1 988-5, 24807-2 ####[facility] LABORATORYCLIA [id number] [place] [address] [place] Magnesium SerPl-mCncon 07-30 Magnesium [Mass/Vol] 2.2 mg/dL Normal 1.7-2.3 [facility] Comment on above: Order Comment: Speci men Type: BLOOD SPECIMENOrdering Facility: [facility] Address: [address] [place] [address] Performed By: #### 2 4321-2, 70676-6, 2777-1 ####[facility] LABORATORYCLIA [id number] [place] [address] [place] NUTRITIONon 07-30-2022 NUTRITION Normal [facility] NUTRITION Normal [facility] Phosphate SerPl-mCncon 07-30 Phosphate [Mass/Vol] 3.9 mg/dL Normal 2.7-4.8 [facility] Comment on above: Order Comment: Speci men Type: BLOOD SPECIMENOrdering Facility: [facility] Address: [address] [place] [address] Performed By: #### 2 4321-2, 32661-2, 2777-1 ####[facility] LABORATORYCLIA [id number] [address] [place] Prealb SerPl-ncon 07-30-20 22 Prealbumin [Mass/Vol] 12 mg/dL Low 17-36 [facility] Comment on above: Order Comment: Speci men Type: BLOOD SPECIMENOrdering Facility: [facility] Address: [address] [place] [address] Performed By: #### 1 4338-8 ####[facility] LABCLIA [id number] [address] [place] SARS-CoV-2 RNA Resp Ql MEAGAN+p robeon 07-30-2022 SARS-CoV-2 (COVID-19) RNA MEAGAN+probe Ql (Resp) COVID 19 RESULT: SARS-CoV-2 (Agent of COVID-19) Not Detected by RT-PCR or equivalent method. This test has been authorized by FDA under an Emergency Use Authorization (EUA). [facility] Comment on above: Performed By: #### 9 4500-6 ####[facility] LABORATORYCLIA [id number] [place] [address] [place] XR CHEST 1V FRONTALon 2021 XR CHEST 1V FRONTAL Normal [facility] XR CHEST 1V FRONTAL Normal [facility] XR UPPER GI SINGLE CONTRASTo n 07-30-2022 XR UPPER GI SINGLE CONTRAST Normal [facility] ANES POSTPROC EVALon 022 ANES POSTPROC EVAL Normal [facility] ANES POSTPROC EVAL Normal [facility] ANES PRE-OPon 07-29-2022 ANES PRE-OP Normal [facility] BRIEF OP NOTon 07-29-2022 BRIEF OP NOT Normal [facility] BRIEF OP NOT Normal [facility] CBC panel Auto (Bld)on 07-29 Erythrocyte distribution width (RBC) [Ratio] 13.3 % Normal 11.5-15.0 [facility] Comment on above: Order Comment: Speci men Type: BLOOD SPECIMENOrdering Facility: [facility] Address: [address] [place] [address] Performed By: #### 5 8410-2 ####[facility] LABORATORYCLIA [id number] [address] [place] Hematocrit (Bld) [Volume fraction] 32.4 % Low 36.0-46.0 [facility] Comment on above: Order Comment: Speci men Type: BLOOD SPECIMENOrdering Facility: [facility] Address: [address] [place] [address] Performed By: #### 5 8410-2 ####[facility] LABORATORYCLIA [id number] [place] [address] [place] Hemoglobin (Bld) [Mass/Vol] 10.7 g/dL Low 11.5-15.5 [facility] Comment on above: Order Comment: Speci men Type: BLOOD SPECIMENOrdering Facility: [facility] Address: [address] [place] [address] Performed By: #### 5 8410-2 ####[facility] LABORATORYCLIA [id number] [place] [address] [place] MCH (RBC) [Entitic mass] 28.8 pg Normal 26.0-34.0 [facility] Comment on above: Order Comment: Speci men Type: BLOOD SPECIMENOrdering Facility: [facility] Address: [address] [place] [address] Performed By: #### 5 8410-2 ####[facility] LABORATORYCLIA [id number] [place] [address] [place] MCHC (RBC) [Mass/Vol] 33.0 g/dL Normal 30.5-36.0 [facility] Comment on above: Order Comment: Speci men Type: BLOOD SPECIMENOrdering Facility: [facility] Address: [address] [place] [address] Performed By: #### 5 8410-2 ####JUANPABLO LABORATORYCLIA [id number] [place] [address] [place] MCV (RBC) [Entitic vol] 87.3 fL Normal 80.0-100.0 [facility] Comment on above: Order Comment: Speci men Type: BLOOD SPECIMENOrdering Facility: [facility] Address: [address] [place] [place] [address] Performed By: #### 5 8410-2 ####JUANPAB[facility] LABORATORYCLIA [id number] [address] [place] Nucleated RBC (Bld) [#/Vol] 10*3/uL Normal <0.01 [facility] Comment on above: Order Comment: Speci men Type: BLOOD SPECIMENOrdering Facility: [facility] Address: [address] [place] [address] Performed By: #### 5 8410-2 ####[facility] LABORATORYCLIA [id number] [place] [address] [place] Platelet mean volume (Bld) [Entitic vol] 10.2 fL Normal 9.0-12.7 [facility] Comment on above: Order Comment: Speci men Type: BLOOD SPECIMENOrdering Facility: [facility] Address: [address] [place] [address] Performed By: #### 5 8410-2 ####J[facility] LABORATORYCLIA [id number] [place] [address] [place] Platelets (Bld) [#/Vol] 193 10*3/uL Normal 150-400 [facility] Comment on above: Order Comment: Speci men Type: BLOOD SPECIMENOrdering Facility: [facility] Address: [address] [place] [place] [address] Performed By: #### 5 8410-2 ####J[facility] LABORATORYCLIA [id number] [place] [address] [place] RBC (Bld) [#/Vol] 3.71 10*6/uL Low 3.90-5.20 [facility] Comment on above: Order Comment: Speci men Type: BLOOD SPECIMENOrdering Facility: [facility] Address: [address] [place] [address] Performed By: #### 5 8410-2 ####[facility] LABORATORYCLIA [id number] [place] [address] [place] WBC (Bld) [#/Vol] 8.34 10*3/uL Normal 3.70-11.00 [facility] Comment on above: Order Comment: Speci men Type: BLOOD SPECIMENOrdering Facility: [facility] Address: [address] [place] [address] Performed By: #### 5 8410-2 ####[facility] LABORATORYCLIA [id number] [address] [place] HISTORY PHYSICALon 2 HISTORY PHYSICAL Normal [facility] NURSING PROGon 07-29-2022 NURSING PROG Normal [facility] NURSING PROG Normal [facility] NURSING PROG Normal [facility] NURSING PROG Normal [facility] OPERATIVE NOon 07-29-2022 OPERATIVE NO Normal [facility] SURGICAL PATHOLOGYon 022 CASE REPORT Normal [facility] Comment on above: Order Comment: Speci men Type: TISSUE SPECIMENOrdering Facility: [facility] Address: [address] [place] [address] Result Comment: Surg ical Pathology Report Case: [id number] Provider: Sanford Ozuna MD Collected: 07/29/2022 09:38 AMOrdering Location: [facility] Received: 07/29/2022 03:33 PM Operating RoomPathologist: ZAN Malcolmpecimens: A) - NERVE BIOPSY, Vagus nerve B) - NERVE BIOPSY, Posterior vagus nerve C) - LUNG WEDGE RESECTION RIGHT, right lower lobe wedge D) - SMALL INTESTINE RESECTION, with gastrojejunostomy Performed By: #### S ####[facility] LABORATORYCLIA [id number] [address] CLINICAL HISTORY Normal [facility] Comment on above: Order Comment: [place] Type: TISSUE SPECIMENOrdering Facility: [facility] Address: [address] [place] [address] Result Comment: Mcbride sthoracic vagotomyPre-op diagnosis: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 P art C was reviewed by Dr. Ian Denis from the pulmonary pathology service, who noted that the presence of focal foreign body giant cell reaction is non-specific and may be secondary to prior indwelling catheters. No neoplasm is present.D. No Helicobacter pylori organisms are identified. There is no evidence of dysplasia or malignancy. Performed By: #### S ####[facility] LABORATORYCLIA [id number] [address] FINAL DIAGNOSIS Normal [facility] Comment on above: Order Comment: [place] donnie Type: TISSUE SPECIMENOrdering Facility: [facility] Address: [address] [place] [address] Result Comment: A. V samuel nerve, biopsy:- Unremarkable segments of nerve.B. Posterior vagus nerve, biopsy:- Unremarkable segment of nerve.C. Right lung, lower lobe, wedge resection:- Lung parenchyma with focal foreign body giant cell reaction (see comment).D. Gastrojejunal anastomosis, excision:- Segments of small bowel and stomach with ulcer adjacent to anastomosis, consistent with the clinical history of marginal ulcer.- Separate segment of small bowel with no diagnostic abnormality.JEL 08/01/2022 Performed By: #### S ####[facility] LABORATORYCLIA [id number] [place] [id number] [place] FINAL PERFORMING LAB Normal [facility] Comment on above: Order Comment: Speci men Type: TISSUE SPECIMENOrdering Facility: [facility] Address: [address] [id number] Result Comment: Diag nostic interpretation performed at [facility], [address] [place] [address] CLIA# [id number] Director: Lamar Benavides M.D. Performed By: #### S ####[facility] LABORATORYCLIA [id number] [address] GROSS DESCRIPTION A. NERVE BIOPSY Normal [facility] Comment on above: Order Comment: Speci men Type: TISSUE SPECIMENOrdering Facility: [facility] Address: [address] [place] [address] Result Comment: Rece ived in formalin designated vagus nerve are multiple pink-rodriguez to rodriguez-white fragments of soft tissue that aggregate to 0.4 x 0.3 x 0.1 cm. The specimen is entirely filtered in one cassette.WE July 30, 2022 9:07 AMGross examination performed at [facility], [address] [place], [place] [address]B. NERVE BIOPSYReceived in formalin designated posterior vagus nerve is a rodriguez fragment of tissue measures 0.2 x 0.2 x 0.1 cm. The specimen is entirely filtered in one cassette.WE July 30, 2022 9:08 AMGross examination performed at [facility], [address] [place] [address]. LUNG WEDGE RESECTION RIGHTReceived in formalin designated right lower lobe wedge is a portion of long that measures 2 x 0.5 x 0.4 cm and weighs 1 g. Sectioning through the specimen reveals unremarkable lung parenchyma. The specimen is entirely submitted in one cassette.WE July 30, 2022 9:09 AMGross examination performed at [facility], [address] [place] [address]. SMALL INTESTINE RESECTIONReceived in formalin designated small intestine resection with gastrojejunostomy is an anastomosed portion of stomach and small bowel that measures 6 cm in length and ranges from 3 to 6 cm in circumference. The serosal surface is ragged. The gastric mucosa is rodriguez and thickened with a wall measuring 1 cm. The small bowel mucosa is dusky showing normal folds with a wall thickness of 0.6 cm. The mucosa at the anastomotic line is slightly granular. A difinitive ulcer cannot be identified. Also within the container is additional segment of small bowel to measure 6 cm in length and 5.5 cm in circumference. The serosal surface is rodriguez-ramirez and smooth. The bowel is opened to reveal unremarkable mucosa showing normal mucosal folds with a wall thickness of 0.7 cm. Acrobatic Rigger sections are submitted as follows: A1 gastric margin shave, A2 small bowel margin shave, A3 anastomotic line, A4 additional segment of small bowel margin 1 shave, A5 additional segment of small bowel margin 2 shave, A6 additional segment of small bowel.WE July 30, 2022 8:48 AMGross examination performed at [facility], [address] [place], [place] [address]dditional sections are submitted as follows: A7-A8 granular mucosa at anastomotic line.WE August 01, 2022 2:37 PMGross examination performed at [facility], [address] [place] [address] Performed By: #### S ####[facility] LABORATORYCLIA [id number] [place] [address] [place] CBC AUTO DIFFon 07-28-2022 BASO # 0.0 103/ul Normal 0.0-0.1 [facility] Comment on above: Performed By: #### C BC ####[facility] C[address]bit[address] [place], [place] [address]Dr. Dolly Kelly Basophils/100 WBC (Bld) 0.4 % Normal 0.2-2.0 [facility] Comment on above: Performed By: #### C BC ####[facility] Bvlcokzcm[address] [place], [place] [address]DrZarina Kelly EO # 0.0 103/ul Normal 0.0-0.7 [facility] Comment on above: Performed By: #### C BC ####[facility] Sdvtehqezi[address] [place], [place] [address]Dr. Dolly Kelly Eosinophils/100 WBC (Bld) 0.5 % Critically low 0.9-7.0 [facility] Comment on above: Performed By: #### C BC ####[facility] Deeotgensm[address] [place], [place] [address]Dr. Dolly Kelly Erythrocyte distribution width (RBC) [Ratio] 13.7 % Normal 11.0-15.0 [facility] Comment on above: Performed By: #### C BC ####[facility] Renuznyvq[address] [place], [place] [address]Dr. Dolly Kelly Hematocrit (Bld) [Volume fraction] 33.9 % Critically low 36.0-48.0 [facility] Comment on above: Performed By: #### C BC ####[facility] Askrvmpinc[address] [place], [place] [address]Dr. Dolly Kelly Hemoglobin (Bld) [Mass/Vol] 11.3 g/dL Critically low 12.0-16.0 [facility] Comment on above: Performed By: #### C BC ####[facility] S[address] [place], [place] [address]Dr. Dolly Kelly IG # 0.02 10e3/ul Normal 0.00-0.03 [facility] Comment on above: Performed By: #### C BC ####[facility] [address] [place], [place] [address]Dr. Dolly Kelly IG % 0.3 % Normal 0.0-0.5 [facility] Comment on above: Performed By: #### C BC ####[facility] R[address]ihss[address] [place], [place] [address]Dr. Dolly Kelly LYMPH # 1.4 103/ul Normal 1.2-3.8 [facility] Comment on above: Performed By: #### C BC ####[facility] D[address]afwd[address] [place], [place] [address]Dr. Dolly Kelly Lymphocytes/100 WBC (Bld) 18.2 % Critically low 20.5-60.0 [facility] Comment on above: Performed By: #### C BC ####[facility] H[address] [place], [place] [address]DrZarina Kelly MANUAL DIFF REQ NO Normal [facility] Comment on above: Performed By: #### C BC ####[facility] [address] [address]DrZarina Kelly MCH (RBC) [Entitic mass] 29.4 pg Normal 26.7-34.0 [facility] Comment on above: Performed By: #### C BC ####[facility] [address] [address]DrZarina Kelly MCHC (RBC) [Mass/Vol] 33.3 g/dL Normal 29.9-35.2 [facility] Comment on above: Performed By: #### C BC ####[facility] Oeufeydsci[address] [place], [place] [address]DrZarina Kelly MCV (RBC) [Entitic vol] 88.1 fL Normal 81.0-99.0 [facility] Comment on above: Performed By: #### C BC ####[facility] Na[address]dcjkig[address] [place], [place] [address]DrZarina Kelly MONO # 0.4 103/ul Normal 0.3-0.8 [facility] Comment on above: Performed By: #### C BC ####[facility] Q[address]qmq[address] [place], [place] [address]DrZarina Kelly Monocytes/100 WBC (Bld) 5.7 % Normal 1.7-12.0 [facility] Comment on above: Performed By: #### C BC ####[facility] Zaur[address]mgm[address] [place], [place] [address]DrZarina Kelly NEUT # 5.6 103/ul Normal 1.4-6.5 [facility] Comment on above: Performed By: #### C BC ####[facility] Ar[address] [place], [place] [address]DrZarina Kelly Neutrophils/100 WBC (Bld) 74.9 % Normal 43.0-75.0 [facility] Comment on above: Performed By: #### C BC ####[facility] [address] [place], [place] [address]DrZarina Kelly Platelet mean volume (Bld) [Entitic vol] 10.5 fL Normal 9.5-13.5 [facility] Comment on above: Performed By: #### C BC ####[facility] [address] [id number]. Dolly Kelly PLT 230 103/ul Normal 150-450 [facility] Comment on above: Performed By: #### C BC ####[facility] [address] [id number]. Dolly Kelly RBC 3.85 106/ul Critically low 4.20-5.40 [facility] Comment on above: Performed By: #### C BC ####[facility] [address] [id number] Kelly WBC 7.5 103/ul Normal 4.0-11.0 [facility] Comment on above: Performed By: #### C BC ####[facility] [address] [address]Dr. Dolly Kelly MAGNESIUMon 07-28-2022 Magnesium [Mass/Vol] 2.0 mg/dL Normal 1.8-2.4 [facility] Comment on above: Performed By: #### P HOS, MG, TRIG, CMP #### [facility] [address] [place] [address] Dr. Dolly Kelly PHOSPHORUSon 07-28-2022 Phosphate [Mass/Vol] 3.2 mg/dL Normal 2.6-4.7 [facility] Comment on above: Performed By: #### P HOS, MG, TRIG, CMP #### [facility] [address] [address] [address] Dolly Kelly PROF 14(COMP METB)on 022 Albumin [Mass/Vol] 3.3 g/dL Critically low 3.4-5.0 [facility] Comment on above: Performed By: #### P HOS, MG, TRIG, CMP #### [facility] [address] [address] [address] Dolly Kelly Albumin/Globulin [Mass ratio] 0.9 {ratio} Normal [facility] Comment on above: Performed By: #### P HOS, MG, TRIG, CMP #### [facility] [address] [address] [address] Dolly Kelly ALP [Catalytic activity/Vol] 92 U/L Normal 46-116 [facility] Comment on above: Performed By: #### P HOS, MG, TRIG, CMP #### [facility] [address] [place] [address] Dr. Dolly Kelly ALT [Catalytic activity/Vol] 18 U/L Normal 14-59 [facility] Comment on above: Performed By: #### P HOS, MG, TRIG, CMP #### [facility] [address] [place] [address] Dr. Dolly Kelly Anion gap [Moles/Vol] 9.7 mmol/L Normal [facility] Comment on above: Performed By: #### P HOS, MG, TRIG, CMP #### [facility] [address] [place] [address] Dr. Dolly Kelly AST [Catalytic activity/Vol] 15 U/L Normal 15-37 [facility] Comment on above: Performed By: #### P HOS, MG, TRIG, CMP #### [facility] [address] [place] [address] Dr. Dolly Kelly Bilirubin [Mass/Vol] 0.2 mg/dL Normal 0.2-1.0 [facility] Comment on above: Performed By: #### P HOS, MG, TRIG, CMP #### [facility] [address] [place] [address] Dr. Dolly Kelly Calcium [Mass/Vol] 8.9 mg/dL Normal 8.5-10.[address] [facility] Comment on above: Performed By: #### P HOS, MG, TRIG, CMP #### [facility] [address] [place] [address] Dr. Dolly Kelly Chloride [Moles/Vol] 102 mmol/L Normal 98-107 [facility] Comment on above: Performed By: #### P HOS, MG, TRIG, CMP #### [facility] [address] [place] [address] Dr. Dolly Kelly CO2 [Moles/Vol] 28.4 mmol/L Normal 21.0-32.0 [facility] Comment on above: Performed By: #### P HOS, MG, TRIG, CMP #### [facility] [address] [address] [address] Dolly Kelly Creatinine [Mass/Vol] 0.66 mg/dL Normal 0.55-1.02 [facility] Comment on above: Performed By: #### P HOS, MG, TRIG, CMP #### [facility] [address] [address] [address] Dolly Kelly EGFR-AF SIERRA LEONEAN >60 Normal >=60 [facility] Comment on above: Performed By: #### P HOS, MG, TRIG, CMP #### [facility] [address] [address] [address] Dolly Kelly EGFR-NON AF SIERRA LEONEAN >60 Normal >=60 [facility] Comment on above: Performed By: #### P HOS, MG, TRIG, CMP #### [facility] [address] [address] [address] Dolly Kelly Globulin (S) [Mass/Vol] 3.6 g/dL Normal [facility] Comment on above: Performed By: #### P HOS, MG, TRIG, CMP #### [facility] [address] [address] [address] Dolly Kelly Glucose [Mass/Vol] 110 mg/dL Critically high 74-106 T [facility] Comment on above: Performed By: #### P HOS, MG, TRIG, CMP #### [facility] [address] [address] [address] Dolly Klely Potassium [Moles/Vol] 4.1 mmol/L Normal 3.5-5.1 [facility] Comment on above: Performed By: #### P HOS, MG, TRIG, CMP #### [facility] [address] [address] [address] Dolly Kelly Protein [Mass/Vol] 6.9 g/dL Normal 6.4-8.[address] [facility] Comment on above: Performed By: #### P HOS, MG, TRIG, CMP #### [facility] [address] [address] [address] Dolly Kelly Sodium [Moles/Vol] 136 mmol/L Normal 136-[address] [facility] Comment on above: Performed By: #### P HOS, MG, TRIG, CMP #### [facility] [address] [place] [address] Dr. Dolly Kelly Urea nitrogen [Mass/Vol] 20.0 mg/dL Critically high 7.0-18.0 [facility] Comment on above: Performed By: #### P HOS, MG, TRIG, CMP #### [facility] [address] [place] [address] Dr. Dolly Kelly Urea nitrogen/Creatinine [Mass ratio] 30.3 mg/mg Normal [facility] Comment on above: Performed By: #### P HOS, MG, TRIG, CMP #### [facility] [address] [place] [address] Dr. Dolly Kelly TRIGLYCERIDEon 07-28-2022 Triglyceride [Mass/Vol] 85 mg/dL Normal <=150 [facility] Comment on above: Performed By: #### P HOS, MG, TRIG, CMP #### [facility] [address] [place] [address] Dr. Dolly Kelly CBC AUTO DIFFon 07-07-2022 BASO # 0.1 103/ul Normal 0.0-0.1 [facility] Comment on above: Performed By: #### C BC ####[facility] [address] [place], [place] [address]Dr. Dolly Kelly Basophils/100 WBC (Bld) 0.9 % Normal 0.2-2.0 [facility] Comment on above: Performed By: #### C BC ####[facility] [address] [place], [place] [address]Dr. Dolly Kelly EO # 0.2 103/ul Normal 0.0-0.7 [facility] Comment on above: Performed By: #### C BC ####[facility] Iz[address] [place], [place] [address]Dr. Dolly Kelly Eosinophils/100 WBC (Bld) 3.2 % Normal 0.9-7.0 [facility] Comment on above: Performed By: #### C BC ####[facility] O[address]eb[address] [place], [place] [address]Dr. Dolly Kelly Erythrocyte distribution width (RBC) [Ratio] 14.3 % Normal 11.0-15.0 [facility] Comment on above: Performed By: #### C BC ####[facility] [address] [place], [place] [address]Dr. Dolly Kelly Hematocrit (Bld) [Volume fraction] 33.1 % Critically low 36.0-48.0 [facility] Comment on above: Performed By: #### C BC ####[facility] Q[address]rqhqtj[address] [place], [place] [address]Dr. Dolly Kelly Hemoglobin (Bld) [Mass/Vol] 10.5 g/dL Critically low 12.0-16.0 [facility] Comment on above: Performed By: #### C BC ####[facility] Ro[address] [place], [place] [address]Dr. Dolly Kelly IG # 0.00 10e3/ul Normal 0.00-0.03 [facility] Comment on above: Performed By: #### C BC ####[facility] Aidmwjrxyi[address] [place], [place] [address]Dr. Dolly Kelly IG % 0.0 % Normal 0.0-0.5 [facility] Comment on above: Performed By: #### C BC ####[facility] Iax[address] [place], [place] [address]Dr. Dolly Kelly LYMPH # 1.6 103/ul Normal 1.2-3.8 [facility] Comment on above: Performed By: #### C BC ####[facility] Aycjrihqho[address] [place], [place] [address]Dr. Dolly Kelly Lymphocytes/100 WBC (Bld) 29.6 % Normal 20.5-60.0 [facility] Comment on above: Performed By: #### C BC ####[facility] I[address] [place], [place] [address]DrZarina Kelly MANUAL DIFF REQ NO Normal [facility] Comment on above: Performed By: #### C BC ####[facility] [address] [address]DrZarina Kelly MCH (RBC) [Entitic mass] 28.5 pg Normal 26.7-34.0 [facility] Comment on above: Performed By: #### C BC ####[facility] [address] [address]DrZarina Kelly MCHC (RBC) [Mass/Vol] 31.7 g/dL Normal 29.9-35.2 [facility] Comment on above: Performed By: #### C BC ####[facility] T[address] [place], [place] [address]DrZarina Kelly MCV (RBC) [Entitic vol] 89.9 fL Normal 81.0-99.0 [facility] Comment on above: Performed By: #### C BC ####[facility] N[address] [place], [place] [address]DrZarina Kelly MONO # 0.6 103/ul Normal 0.3-0.8 [facility] Comment on above: Performed By: #### C BC ####[facility] Amamayruqy[address] [place], [place] [address]DrZarina Kelly Monocytes/100 WBC (Bld) 10.6 % Normal 1.7-12.0 [facility] Comment on above: Performed By: #### C BC ####[facility] Lypofqiv[address] [place], [place] [address]DrZarina Kelly NEUT # 3.0 103/ul Normal 1.4-6.5 [facility] Comment on above: Performed By: #### C BC ####[facility] [address] [place], [place] [address]DrZarina Kelly Neutrophils/100 WBC (Bld) 55.7 % Normal 43.0-75.0 [facility] Comment on above: Performed By: #### C BC ####[facility] Ah[address] [place], [place] [address]DrZarina Kelly Platelet mean volume (Bld) [Entitic vol] 11.3 fL Normal 9.5-13.5 [facility] Comment on above: Performed By: #### C BC ####[facility] [address] [id number]. Dolly Kelly PLT 245 103/ul Normal 150-450 [facility] Comment on above: Performed By: #### C BC ####[facility] [address] [id number]. Dolly Kelly RBC 3.68 106/ul Critically low 4.20-5.40 [facility] Comment on above: Performed By: #### C BC ####[facility] [address] [address]DrZarina Kelly WBC 5.3 103/ul Normal 4.0-11.0 [facility] Comment on above: Performed By: #### C BC ####[facility] [address] [address]Dr. Dolly Kelly MAGNESIUMon 07-07-2022 Magnesium [Mass/Vol] 1.9 mg/dL Normal 1.8-2.4 [facility] Comment on above: Performed By: #### T LIZET CMP, MG #### [facility] [address] [place] [address] Dr. Dolly Kelly PHOSPHORUSon 07-07-2022 Phosphate [Mass/Vol] 4.6 mg/dL Normal 2.6-4.7 [facility] Comment on above: Performed By: #### P HOS #### [facility] [address] [place] [address] Dr. Dolly Kelly PROF 14(COMP METB)on 022 Albumin [Mass/Vol] 3.5 g/dL Normal 3.4-5.[address] [facility] Comment on above: Performed By: #### T RIG CMP, MG #### [facility] [address] [place] [address] Dr. Dolly Kelly Albumin/Globulin [Mass ratio] 1.1 {ratio} Normal [facility] Comment on above: Performed By: #### T LIZET CMP, MG #### [facility] [address] [address] [address] Dolly Kelly ALP [Catalytic activity/Vol] 71 U/L Normal 46-116 [facility] Comment on above: Performed By: #### T RIG, CMP, MG #### [facility] [address] [address] [address] Dolly Kelly ALT [Catalytic activity/Vol] 43 U/L Normal 14-59 [facility] Comment on above: Performed By: #### T RIG, CMP, MG #### [facility] [address] [address] [address] Dolly Kelly Anion gap [Moles/Vol] 11.2 mmol/L Normal [facility] Comment on above: Performed By: #### T RIG, CMP, MG #### [facility] [address] [place] [address] Dr. Dolly Kelly AST [Catalytic activity/Vol] 20 U/L Normal 15-37 [facility] Comment on above: Performed By: #### T RIG, CMP, MG #### [facility] [address] [address] [address] Dolly Kelly Bilirubin [Mass/Vol] 0.3 mg/dL Normal 0.2-1.0 [facility] Comment on above: Performed By: #### T RIG, CMP, MG #### [facility] [address] [place] [address] Dr. Dolly Kelly Calcium [Mass/Vol] 8.5 mg/dL Normal 8.5-10.[address] [facility] Comment on above: Performed By: #### T RIG, CMP, MG #### [facility] [address] [address] [address] Dolly Kelly Chloride [Moles/Vol] 104 mmol/L Normal 98-107 [facility] Comment on above: Performed By: #### T RIG, CMP, MG #### [facility] [address] [place] [address] Dr. Dolly Kelly CO2 [Moles/Vol] 27.2 mmol/L Normal 21.0-32.0 [facility] Comment on above: Performed By: #### T RIG, CMP, MG #### [facility] [address] [address] [address] Dolly Kelly Creatinine [Mass/Vol] 0.57 mg/dL Normal 0.55-1.02 [facility] Comment on above: Performed By: #### T RIG, CMP, MG #### [facility] [address] [address] [address] Dolly Kelly EGFR-AF SIERRA LEONEAN >60 Normal >=60 [facility] Comment on above: Performed By: #### T RIG, CMP, MG #### [facility] [address] [address] [address] Dolly Kelly EGFR-NON AF SIERRA LEONEAN >60 Normal >=60 [facility] Comment on above: Performed By: #### T RIG, CMP, MG #### [facility] [address] [address] [address] Dolly Kelly Globulin (S) [Mass/Vol] 3.3 g/dL Normal [facility] Comment on above: Performed By: #### T RIG, CMP, MG #### [facility] [address] [address] [address] Dolly Kelly Glucose [Mass/Vol] 91 mg/dL Normal 74-106 [facility] Comment on above: Performed By: #### T RIG, CMP, MG #### [facility] [address] [address] [address] Dolly Kelly Potassium [Moles/Vol] 3.8 mmol/L Normal 3.5-5.1 [facility] Comment on above: Performed By: #### T RIG, CMP, MG #### [facility] [address] [address] [address] Dolly Kelly Protein [Mass/Vol] 6.8 g/dL Normal 6.4-8.2 [facility] Comment on above: Performed By: #### T RIG, CMP, MG #### [facility] [address] [address] [address] Dolly Kelly Sodium [Moles/Vol] 139 mmol/L Normal 136-145 [facility] Comment on above: Performed By: #### T RIG, CMP, MG #### [facility] [address] [address] [address] oDlly Kelly Urea nitrogen [Mass/Vol] 23.0 mg/dL Critically high 7.0-18.0 [facility] Comment on above: Performed By: #### T RIG, CMP, MG #### [facility] [address] [address] [address] Dolly Kelly Urea nitrogen/Creatinine [Mass ratio] 40.1 mg/mg Normal [facility] Comment on above: Performed By: #### T RIG, CMP, MG #### [facility] [address] [address] [address] Dolly Kelly TRIGLYCERIDEon 07-07-2022 Triglyceride [Mass/Vol] 61 mg/dL Normal <=150 [facility] Comment on above: Performed By: #### T RIG, CMP, MG #### [facility] [address] [address] [address] Dolly Kelly CASE MANAGEMon 07-01-2022 CASE MANAGEM Normal [facility] CNDSon 07-01-2022 CNDS [facility] Magnesium SerPl-mCncon 07-01 Magnesium [Mass/Vol] 2.6 mg/dL High 1.7-2.3 [facility] Comment on above: Order Comment: Speci men Type: BLOOD SPECIMENOrdering Facility: [facility] Address: [address] [place] [phone] Performed By: #### 1 9123-9, 86713-4 ####[facility] LABORATORYCLIA [id number] [place] [address] [place] NURSING PROGon 07-01-2022 NURSING PROG Normal [facility] NUTRITIONon 07-01-2022 NUTRITION Normal [facility] Renal function 2000 panelon 07-01-2022 Albumin [Mass/Vol] 3.5 g/dL Low 3.9-4.9 [facility] Comment on above: Order Comment: Speci men Type: BLOOD SPECIMENOrdering Facility: [facility] Address: [address] Performed By: #### 1 9123-9, 28753-1 ####[facility] LABORATORYCLIA [id number] [place] [address] [place] Anion gap [Moles/Vol] 11 mmol/L Normal 9-18 [facility] Comment on above: Order Comment: Speci men Type: BLOOD SPECIMENOrdering Facility: [facility] Address: [address] [address] Performed By: #### 1 [address], ####[facility] LABORATORYCLIA [id number] [place] [address] [place] Calcium [Mass/Vol] 8.7 mg/dL Normal 8.5-10.2 [facility] Comment on above: Order Comment: Speci men Type: BLOOD SPECIMENOrdering Facility: [facility] Address: [facility] [address] [address] Performed By: #### 1 9123-05, ####[facility] LABORATORYCLIA [id number] [place] [address] [place] Chloride [Moles/Vol] 105 mmol/L Normal 97-105 [facility] Comment on above: Order Comment: Speci men Type: BLOOD SPECIMENOrdering Facility: [facility] Address: [address] [address] Performed By: #### 1 [address], ####[facility] LABORATORYCLIA [id number] [place] [address] [place] CO2 [Moles/Vol] 25 mmol/L Normal 22-30 [facility] Comment on above: Order Comment: Speci men Type: BLOOD SPECIMENOrdering Facility: [facility] Address: [address] [address] Performed By: #### 1 [address], ####[facility] LABORATORYCLIA [id number] [address] [id number] [place] Creatinine [Mass/Vol] 0.59 mg/dL Normal 0.58-0.96 [facility] Comment on above: Order Comment: Sharonjohnie fields Type: BLOOD SPECIMENOrdering Facility: [facility] Address: [address] [phone] Performed By: #### 1 9123-9, 91299-3 ####[facility] LABORATORYCLIA [id number] [address] [id number] [place] ESTIMATED GLOMERULAR FILTRATION RATE 113 mL/min/1.73m??? Normal >=60 [facility] Comment on above: Order Comment: Sharonjohnie fields Type: BLOOD SPECIMENOrdering Facility: [facility] Address: [address] [phone] Result Comment: Randy mated Glomerular Filtration Rate (eGFR) is calculated using the 2020 CKD-EPI creatinine equation. This equation utilizes serum creatinine, sex, and age as parameters. The creatinine assay has traceable calibration to isotope dilution-mass spectrometry. Refer to KDIGO guidelines for clinical interpretation. In patients with unstable renal function, e.g. those with acute kidney injury, the eGFR may not accurately reflect actual GFR. Performed By: #### 1 9123-9, 90395-0 ####[facility] LABORATORYCLIA [id number] [address] [id number] [place] Glucose [Mass/Vol] 91 mg/dL Normal 74-99 [facility] Comment on above: Order Comment: Sharonjohnie fields Type: BLOOD SPECIMENOrdering Facility: [facility] Address: [address] [address] Result Comment: The [place] [employer] (ADA) provides guidance for cutoff values for fasting glucose and random glucose. The ADA defines fasting as no caloric intake for at least 8 hours. Fasting plasma glucose results between 100 to 125 mg/dL indicate increased risk for diabetes (prediabetes).Fasting plasma glucose results greater than or equal to 126 mg/dL meet the criteria for diagnosis of diabetes. In the absence of unequivocal hyperglycemia, results should be confirmed by repeat testing. In a patient with classic symptoms of hyperglycemia or hyperglycemic crisis, random plasma glucose results greater than or equal to 200 mg/dL meet the criteria for diagnosis of diabetes.Reference: Standards of Medical Care in Diabetes 2016, [place] [employer]. Diabetes Care. 2016.39(Suppl 1). Performed By: #### 1 9123-9, 59479-1 ####[facility] LABORATORYCLIA [id number] [address] [id number] [place] Phosphate [Mass/Vol] 4.3 mg/dL Normal 2.7-4.8 [facility] Comment on above: Order Comment: Speci men Type: BLOOD SPECIMENOrdering Facility: [facility] Address: [address] [place] [address] Performed By: #### 1 9123-9, 46463-4 ####[facility] LABORATORYCLIA [id number] [address] [id number] [place] Potassium [Moles/Vol] 4.5 mmol/L Normal 3.7-5.1 [facility] Comment on above: Order Comment: Speci men Type: BLOOD SPECIMENOrdering Facility: [facility] Address: [address] [place] [address] Performed By: #### 1 9123-9, 72832-4 ####[facility] LABORATORYCLIA [id number] [address] [id number] [place] Sodium [Moles/Vol] 141 mmol/L Normal 136-144 [facility] Comment on above: Order Comment: Speci men Type: BLOOD SPECIMENOrdering Facility: [facility] Address: [address] [place] [address] Performed By: #### 1 9123-9, 61063-6 ####[facility] LABORATORYCLIA [id number] [address] [id number] [place] Urea nitrogen [Mass/Vol] 27 mg/dL High 7-21 [facility] Comment on above: Order Comment: Speci men Type: BLOOD SPECIMENOrdering Facility: [facility] Address: [address] [place] [address] Performed By: #### 1 9123-9, 34363-6 ####[facility] LABORATORYCLIA [id number] [address] [id number] [place] Basic metabolic 2000 panelon 06-30-2022 Anion gap [Moles/Vol] 2 mmol/L Low 9-18 [facility] Comment on above: Order Comment: Speci men Type: BLOOD SPECIMENOrdering Facility: [facility] Address: [address] [place], [place] [address] [address] Performed By: #### 2 4320-, 1988-01, , ####[facility] LABORATORYCLIA [id number] [address] [id number] [place] Calcium [Mass/Vol] 8.3 mg/dL Low 8.5-10.2 [facility] Comment on above: Order Comment: Speci men Type: BLOOD SPECIMENOrdering Facility: [facility] Address: [address] [place] [address] Performed By: #### 2 4320-10, 1988-01, , ####[facility] LABORATORYCLIA [id number] [place] [address] [place] Chloride [Moles/Vol] 101 mmol/L Normal 97-105 [facility] Comment on above: Order Comment: Speci men Type: BLOOD SPECIMENOrdering Facility: [facility] Address: [address] [place], [place] [address] [address] Performed By: #### 2 4320-10, 1988-01, , ####[facility] LABORATORYCLIA [id number] [address] [id number] [place] CO2 [Moles/Vol] 33 mmol/L High 22-30 [facility] Comment on above: Order Comment: Speci men Type: BLOOD SPECIMENOrdering Facility: [facility] Address: [address] [place] [phone] Performed By: #### 2 4320-10, 1988-01, , ####[facility] LABORATORYCLIA [id number] [address] [id number] [place] Creatinine [Mass/Vol] 0.60 mg/dL Normal 0.58-0.96 [facility] Comment on above: Order Comment: Speci men Type: BLOOD SPECIMENOrdering Facility: [facility] Address: [address] [place] [address] Performed By: #### 2 432-2, 1988-01, , ####[facility] LABORATORYCLIA [id number] [place] [address] [place] ESTIMATED GLOMERULAR FILTRATION RATE 113 mL/min/1.73m??? Normal >=60 [facility] Comment on above: Order Comment: Ren[place] donnie Type: BLOOD SPECIMENOrdering Facility: [facility] Address: [address] [place] [address] Result Comment: Randy mated Glomerular Filtration Rate (eGFR) is calculated using the 2020 CKD-EPI creatinine equation. This equation utilizes serum creatinine, sex, and age as parameters. The creatinine assay has traceable calibration to isotope dilution-mass spectrometry. Refer to KDIGO guidelines for clinical interpretation. In patients with unstable renal function, e.g. those with acute kidney injury, the eGFR may not accurately reflect actual GFR. Performed By: #### 2 432-, 1988-01, , ####[facility] LABORATORYCLIA [id number] [address] [place] [id number] [place] Glucose [Mass/Vol] 88 mg/dL Normal 74-99 [facility] Comment on above: Order Comment: [place] fields Type: BLOOD SPECIMENOrdering Facility: [facility] Address: [address] [place] [address] Result Comment: The [place] Diabetes [employer] (ADA) provides guidance for cutoff values for fasting glucose and random glucose. The ADA defines fasting as no caloric intake for at least 8 hours. Fasting plasma glucose results between 100 to 125 mg/dL indicate increased risk for diabetes (prediabetes).Fasting plasma glucose results greater than or equal to 126 mg/dL meet the criteria for diagnosis of diabetes. In the absence of unequivocal hyperglycemia, results should be confirmed by repeat testing. In a patient with classic symptoms of hyperglycemia or hyperglycemic crisis, random plasma glucose results greater than or equal to 200 mg/dL meet the criteria for diagnosis of diabetes.Reference: Standards of Medical Care in Diabetes 2016, [place] [employer]. Diabetes Care. 2016.39(Suppl 1). Performed By: #### 2 4320-2, 1988-01, 83498-4, ####[facility] LABORATORYCLIA [id number] [place] [address] [place] Potassium [Moles/Vol] 4.5 mmol/L Normal 3.7-5.1 [facility] Comment on above: Order Comment: Speci men Type: BLOOD SPECIMENOrdering Facility: [facility] Address: [address] [place] [address] Performed By: #### 2 4320-, 1988-01, , ####[facility] LABORATORYCLIA [id number] [address] [place] [id number] [place] Sodium [Moles/Vol] 136 mmol/L Normal 136-144 [facility] Comment on above: Order Comment: Speci men Type: BLOOD SPECIMENOrdering Facility: [facility] Address: [address] [place] [address] Performed By: #### 2 4320-10, 1988-01, , ####[facility] LABORATORYCLIA [id number] [address] [place] [id number] [place] Urea nitrogen [Mass/Vol] 27 mg/dL High 7-21 [facility] Comment on above: Order Comment: Speci men Type: BLOOD SPECIMENOrdering Facility: [facility] Address: [address] [place] [address] Performed By: #### 2 4320-10, 1988-01, , ####[facility] LABORATORYCLIA [id number] [place] [address] [place] CASE MANAGEMon 06-30-2022 CASE MANAGEM Normal [facility] CBC W Auto Differential pane l (Bld)on 06-30-2022 Basophils (Bld) [#/Vol] 0.05 10*3/uL Normal <0.11 [facility] Comment on above: Order Comment: Speci men Type: BLOOD SPECIMENOrdering Facility: [facility] Address: [address] [place] [address] Performed By: #### 5 7021-8 ####[facility] LABORATORYCLIA [id number] [place] [address] [place] [place] Basophils/100 WBC (Bld) 1.1 % Normal [facility] Comment on above: Order Comment: Speci men Type: BLOOD SPECIMENOrdering Facility: [facility] Address: [address] [place] [address] Performed By: #### 5 7021-8 ####JUANPABLO LABORATORYCLIA [id number] [place] [address] [place] Differential cell count method Nom (Bld) Auto Normal [facility] Comment on above: Order Comment: Speci men Type: BLOOD SPECIMENOrdering Facility: [facility] Address: [address] [place] [address] Performed By: #### 5 7021-8 ####JUANPABLO LABORATORYCLIA [id number] [place] [address] [place] Eosinophils (Bld) [#/Vol] 0.18 10*3/uL Normal <0.46 [facility] Comment on above: Order Comment: Speci men Type: BLOOD SPECIMENOrdering Facility: [facility] Address: [address] [place] [address] Performed By: #### 5 7021-8 ####JUANPABLO LABORATORYCLIA [id number] [address] [place] Eosinophils/100 WBC (Bld) 4.0 % Normal [facility] Comment on above: Order Comment: Speci men Type: BLOOD SPECIMENOrdering Facility: [facility] Address: [address] [place] [address] Performed By: #### 5 7021-8 ####[facility] LABORATORYCLIA [id number] [address] [place] Erythrocyte distribution width (RBC) [Ratio] 14.0 % Normal 11.5-15.0 [facility] Comment on above: Order Comment: Speci men Type: BLOOD SPECIMENOrdering Facility: [facility] Address: [address] [place] [address] Performed By: #### 5 7021-8 ####[facility] LABORATORYCLIA [id number] [place] [address] [place] Hematocrit (Bld) [Volume fraction] 29.5 % Low 36.0-46.0 [facility] Comment on above: Order Comment: Speci men Type: BLOOD SPECIMENOrdering Facility: [facility] Address: [address] [place] [address] Performed By: #### 5 7021-8 ####[facility] LABORATORYCLIA [id number] [place] [address] [place] Hemoglobin (Bld) [Mass/Vol] 9.3 g/dL Low 11.5-15.5 [facility] Comment on above: Order Comment: Speci men Type: BLOOD SPECIMENOrdering Facility: [facility] Address: [address] [place] [address] Performed By: #### 5 7021-8 ####[facility] LABORATORYCLIA [id number] [place] [address] [place] Immature granulocytes (Bld) [#/Vol] 10*3/uL Normal <0.10 [facility] Comment on above: Order Comment: Speci men Type: BLOOD SPECIMENOrdering Facility: [facility] Address: [address] [place] [address] Performed By: #### 5 7021-8 ####JUANPABLO LABORATORYCLIA [id number] [place] [address] [place] Immature granulocytes/100 WBC (Bld) 0.2 % Normal [facility] Comment on above: Order Comment: Speci men Type: BLOOD SPECIMENOrdering Facility: [facility] Address: [address] [place] [address] Performed By: #### 5 7021-8 ####[facility] LABORATORYCLIA [id number] [place] [address] [place] Lymphocytes (Bld) [#/Vol] 2.02 10*3/uL Normal 1.00-4.00 [facility] Comment on above: Order Comment: Speci men Type: BLOOD SPECIMENOrdering Facility: [facility] Address: [address] [place] [address] Performed By: #### 5 7021-8 ####[facility] LABORATORYCLIA [id number] [address] Lymphocytes/100 WBC (Bld) 45.3 % Normal [facility] Comment on above: Order Comment: Speci men Type: BLOOD SPECIMENOrdering Facility: [facility] Address: [address] [place] [address] Performed By: #### 5 7021-8 ####[facility] LABORATORYCLIA [id number] [address] MCH (RBC) [Entitic mass] 28.8 pg Normal 26.0-34.0 [facility] Comment on above: Order Comment: Speci men Type: BLOOD SPECIMENOrdering Facility: [facility] Address: [address] [place] [address] Performed By: #### 5 7021-8 ####[facility] LABORATORYCLIA [id number] [address] MCHC (RBC) [Mass/Vol] 31.5 g/dL Normal 30.5-36.0 [facility] Comment on above: Order Comment: Speci men Type: BLOOD SPECIMENOrdering Facility: [facility] Address: [address] [place] [address] Performed By: #### 5 7021-8 ####[facility] LABORATORYCLIA [id number] [address] STATES [facility] MCV (RBC) [Entitic vol] 91.3 fL Normal 80.0-100.0 [facility] Comment on above: Order Comment: Speci men Type: BLOOD SPECIMENOrdering Facility: [facility] Address: [address] [place] [address] Performed By: #### 5 7021-8 ####[facility] LABORATORYCLIA [id number] [place] [address] [place] Monocytes (Bld) [#/Vol] 0.59 10*3/uL Normal <0.87 [facility] Comment on above: Order Comment: Speci men Type: BLOOD SPECIMENOrdering Facility: [facility] Address: [address] [place] [address] Performed By: #### 5 7021-8 ####JUANPABLO LABORATORYCLIA [id number] [place] [address] [place] Monocytes/100 WBC (Bld) 13.2 % Normal [facility] Comment on above: Order Comment: Speci men Type: BLOOD SPECIMENOrdering Facility: [facility] Address: [address] [place] [address] Performed By: #### 5 7021-8 ####JUANPABLO LABORATORYCLIA [id number] [place] [address] [place] Neutrophils (Bld) [#/Vol] 1.61 10*3/uL Normal 1.45-7.50 [facility] Comment on above: Order Comment: Speci men Type: BLOOD SPECIMENOrdering Facility: [facility] Address: [address] [place] [address] Performed By: #### 5 7021-8 ####JUANPABLO LABORATORYCLIA [id number] [place] [address] [place] Neutrophils/100 WBC (Bld) 36.2 % Normal [facility] Comment on above: Order Comment: Speci men Type: BLOOD SPECIMENOrdering Facility: [facility] Address: [address] [place] [address] Performed By: #### 5 7021-8 ####[facility] LABORATORYCLIA [id number] [place] [address] [place] Nucleated RBC (Bld) [#/Vol] 10*3/uL Normal <0.01 [facility] Comment on above: Order Comment: Speci men Type: BLOOD SPECIMENOrdering Facility: [facility] Address: [address] [place] [address] Performed By: #### 5 7021-8 ####[facility] LABORATORYCLIA [id number] [place] [id number] [place] Nucleated RBC/100 WBC (Bld) [Ratio] 0.0 /100 WBC Normal [facility] Comment on above: Order Comment: Speci men Type: BLOOD SPECIMENOrdering Facility: [facility] Address: [address] [place] [address] Performed By: #### 5 7021-8 ####[facility] LABORATORYCLIA [id number] [place] [address] [place] Platelet mean volume (Bld) [Entitic vol] 10.7 fL Normal 9.0-12.7 [facility] Comment on above: Order Comment: Speci men Type: BLOOD SPECIMENOrdering Facility: [facility] Address: [address] [place] [address] Performed By: #### 5 7021-8 ####[facility] LABORATORYCLIA [id number] [place] [address] [place] Platelets (Bld) [#/Vol] 208 10*3/uL Normal 150-400 [facility] Comment on above: Order Comment: Speci men Type: BLOOD SPECIMENOrdering Facility: [facility] Address: [address] [place] [address] Performed By: #### 5 7021-8 ####[facility] LABORATORYCLIA [id number] [place] [address] [place] RBC (Bld) [#/Vol] 3.23 10*6/uL Low 3.90-5.20 [facility] Comment on above: Order Comment: Speci men Type: BLOOD SPECIMENOrdering Facility: [facility] Address: [address] [place] [address] Performed By: #### 5 7021-8 ####TUPELO LABORATORYCLIA [id number] [place] [address] [place] WBC (Bld) [#/Vol] 4.46 10*3/uL Normal 3.70-11.00 [facility] Comment on above: Order Comment: Speci men Type: BLOOD SPECIMENOrdering Facility: [facility] Address: [address] [place] [address] Performed By: #### 5 7021-8 ####[facility] LABORATORYCLIA [id number] [place] [address] [place] CRP SerPl-mCncon 06-30-2022 CRP [Mass/Vol] mg/L Normal <0.9 [facility] Comment on above: Order Comment: Speci men Type: BLOOD SPECIMENOrdering Facility: [facility] Address: [address] [place] [address] Performed By: #### 2 432-2, 1988-01, , ####[facility] LABORATORYCLIA [id number] [place] [address] [place] Hepatic function 2000 panelo n 06-30-2022 Albumin [Mass/Vol] 3.7 g/dL Low 3.9-4.9 [facility] Comment on above: Order Comment: Speci men Type: BLOOD SPECIMENOrdering Facility: [facility] Address: [address] [place] [address] Performed By: #### 2 4320-2, 1988-01, , ####JUANPABLO LABORATORYCLIA [id number] [place] [address] [place] ALP [Catalytic activity/Vol] 67 U/L Normal 34-123 [facility] Comment on above: Order Comment: Speci men Type: BLOOD SPECIMENOrdering Facility: [facility] Address: [address] [place], [place] [address] Performed By: #### 2 4320-2, 1988-01, , ####[facility] LABORATORYCLIA [id number] [place] [address] [place] ALT [Catalytic activity/Vol] 12 U/L Normal 7-38 [facility] Comment on above: Order Comment: Speci men Type: BLOOD SPECIMENOrdering Facility: [facility] Address: [address] [place] [address] Performed By: #### 2 4320-, 1988-01, , ####[facility] LABORATORYCLIA [id number] [place] [id number] [place] AST [Catalytic activity/Vol] 19 U/L Normal 13-35 [facility] Comment on above: Order Comment: Speci men Type: BLOOD SPECIMENOrdering Facility: [facility] Address: [facility] [address] Performed By: #### 2 4320-, 1988-01, , ####[facility] LABORATORYCLIA [id number] [place] [address] [place] Bilirubin [Mass/Vol] 0.2 mg/dL Normal 0.2-1.3 [facility] Comment on above: Order Comment: Speci men Type: BLOOD SPECIMENOrdering Facility: [facility] Address: [address] [place] [address] [place] [address] Performed By: #### 2 4320-10, 1988-01, , ####[facility] LABORATORYCLIA [id number] [place] [id number] [place] Bilirubin.conjugated [Mass/Vol] mg/dL Normal <0.2 [facility] Comment on above: Order Comment: Speci men Type: BLOOD SPECIMENOrdering Facility: [facility] Address: [facility] [place] [address] Performed By: #### 2 4320-10, 1988-01, , ####[facility] LABORATORYCLIA [id number] [place] [address] [place] Protein [Mass/Vol] 5.9 g/dL Low 6.3-8.0 [facility] Comment on above: Order Comment: Speci men Type: BLOOD SPECIMENOrdering Facility: [facility] Address: [facility] [place] [address] Performed By: #### 2 4320-10, 1988-01, , ####[facility] LABORATORYCLIA [id number] [place] [address] [place] Magnesium SerPl-mCncon 06-30 Magnesium [Mass/Vol] 2.1 mg/dL Normal 1.7-2.3 [facility] Comment on above: Order Comment: Speci men Type: BLOOD SPECIMENOrdering Facility: [facility] Address: [address] [place] [address] Performed By: #### 2 4321-2, 1987-, 42094-0, ####[facility] LABORATORYCLIA [id number] [place] [id number] [place] NUTRITIONon 06-30-2022 NUTRITION Normal [facility] Phosphate SerPl-mCncon 06-30 Phosphate [Mass/Vol] 3.3 mg/dL Normal 2.7-4.8 [facility] Comment on above: Order Comment: Speci men Type: BLOOD SPECIMENOrdering Facility: [facility] Address: [address] [place] [address] Performed By: #### 2 777-1 ####[facility] LABORATORYCLIA [id number] [place] [address] [place] Prealb SerPl-mCncon 06-30-20 Prealbumin [Mass/Vol] 14 mg/dL Low 17-36 [facility] Comment on above: Order Comment: Speci men Type: BLOOD SPECIMENOrdering Facility: [facility] Address: [address] [place] [address] Performed By: #### 1 4338-8 ####[facility] LABCLIA [id number] [address] [place] Magnesium SerPl-mCncon 06-29 Magnesium [Mass/Vol] 1.8 mg/dL Normal 1.7-2.3 [facility] Comment on above: Order Comment: Speci men Type: BLOOD SPECIMENOrdering Facility: [facility] Address: [address] [place] [address] Performed By: #### 1 9123-9, 34038-4 ####[facility] LABORATORYCLIA [id number] [place] [id number] [place] NURSING PROGon 06-29-2022 NURSING PROG Normal [facility] Renal function 2000 panelon 06-29-2022 Albumin [Mass/Vol] 3.6 g/dL Low 3.9-4.9 [facility] Comment on above: Order Comment: Speci men Type: BLOOD SPECIMENOrdering Facility: [facility] Address: [address] Performed By: #### 1 9123-9, 87327-2 ####[facility] LABORATORYCLIA [id number] [address] STATES [facility] Anion gap [Moles/Vol] 10 mmol/L Normal 9-18 [facility] Comment on above: Order Comment: Speci men Type: BLOOD SPECIMENOrdering Facility: [facility] Address: [address] [place] [address] Performed By: #### 1 9123-9, 91638-6 ####[facility] LABORATORYCLIA [id number] [place] [address] [place] Calcium [Mass/Vol] 8.6 mg/dL Normal 8.5-10.2 [facility] Comment on above: Order Comment: Speci men Type: BLOOD SPECIMENOrdering Facility: [facility] Address: [address] [place] [address] Performed By: #### 1 9123-9, 49611-0 ####[facility] LABORATORYCLIA [id number] [place] [address] [place] Chloride [Moles/Vol] 100 mmol/L Normal 97-105 [facility] Comment on above: Order Comment: Speci men Type: BLOOD SPECIMENOrdering Facility: [facility] Address: [address] [place] [address] Performed By: #### 1 9123-9, 10194-5 ####[facility] LABORATORYCLIA [id number] [place] [address] [place] CO2 [Moles/Vol] 26 mmol/L Normal 22-30 [facility] Comment on above: Order Comment: Speci men Type: BLOOD SPECIMENOrdering Facility: [facility] Address: [address] [place] [address] Performed By: #### 1 9123-9, 89892-0 ####[facility] LABORATORYCLIA [id number] [place] [id number] [place] Creatinine [Mass/Vol] 0.64 mg/dL Normal 0.58-0.96 [facility] Comment on above: Order Comment: Speci men Type: BLOOD SPECIMENOrdering Facility: [facility] Address: [address] [place] [address] Performed By: #### 1 9123-9, 75136-1 ####[facility] LABORATORYCLIA [id number] [address] OF [facility] ESTIMATED GLOMERULAR FILTRATION RATE 111 mL/min/1.73m??? Normal >=60 [facility] Comment on above: Order Comment: Speci men Type: BLOOD SPECIMENOrdering Facility: [facility] Address: [address] [place] [address] Result Comment: Randy mated Glomerular Filtration Rate (eGFR) is calculated using the 2020 CKD-EPI creatinine equation. This equation utilizes serum creatinine, sex, and age as parameters. The creatinine assay has traceable calibration to isotope dilution-mass spectrometry. Refer to KDIGO guidelines for clinical interpretation. In patients with unstable renal function, e.g. those with acute kidney injury, the eGFR may not accurately reflect actual GFR. Performed By: #### 1 9123-9, 84237-6 ####[facility] LABORATORYCLIA [id number] [place] [id number] [place] Glucose [Mass/Vol] 142 mg/dL High 74-99 [facility] Comment on above: Order Comment: Speci donnie Type: BLOOD SPECIMENOrdering Facility: [facility] Address: [address] [place] [address] Result Comment: The [place] [employer] (ADA) provides guidance for cutoff values for fasting glucose and random glucose. The ADA defines fasting as no caloric intake for at least 8 hours. Fasting plasma glucose results between 100 to 125 mg/dL indicate increased risk for diabetes (prediabetes).Fasting plasma glucose results greater than or equal to 126 mg/dL meet the criteria for diagnosis of diabetes. In the absence of unequivocal hyperglycemia, results should be confirmed by repeat testing. In a patient with classic symptoms of hyperglycemia or hyperglycemic crisis, random plasma glucose results greater than or equal to 200 mg/dL meet the criteria for diagnosis of diabetes.Reference: Standards of Medical Care in Diabetes 2016, [place] [employer]. Diabetes Care. 2016.39(Suppl 1). Performed By: #### 1 9123-9, 33383-8 ####JUANPABLO LABORATORYCLIA [id number] [place] [address] [place] Phosphate [Mass/Vol] 3.7 mg/dL Normal 2.7-4.8 [facility] Comment on above: Order Comment: Speci men Type: BLOOD SPECIMENOrdering Facility: [facility] Address: [address] Performed By: #### 1 9123-9, 92560-9 ####[facility] LABORATORYCLIA [id number] [place] [address] [place] Potassium [Moles/Vol] 4.3 mmol/L Normal 3.7-5.1 [facility] Comment on above: Order Comment: Speci men Type: BLOOD SPECIMENOrdering Facility: [facility] Address: [address] Performed By: #### 1 91239, 32871-6 ####JUANPABLO LABORATORYCLIA [id number] [place] [id number] [place] Sodium [Moles/Vol] 136 mmol/L Normal 136-144 [facility] Comment on above: Order Comment: Speci men Type: BLOOD SPECIMENOrdering Facility: [facility] Address: [address] Performed By: #### 1 9123-9, 64792-1 ####[facility] LABORATORYCLIA [id number] [place] [address] [place] Urea nitrogen [Mass/Vol] 25 mg/dL High 7-21 [facility] Comment on above: Order Comment: Speci men Type: BLOOD SPECIMENOrdering Facility: [facility] Address: [address] [place] [address] Performed By: #### 1 9123-9, 61788-2 ####[facility] LABORATORYCLIA [id number] [place] [address] [place] Magnesium SerPl-mCncon 06-28 Magnesium [Mass/Vol] 2.6 mg/dL High 1.7-2.3 [facility] Comment on above: Order Comment: Speci men Type: BLOOD SPECIMENOrdering Facility: [facility] Address: [address] [place] [address] Performed By: #### 1 9123-9, 45616-4 ####[facility] LABORATORYCLIA [id number] [place] [id number] [place] NUTRITIONon 06-28-2022 NUTRITION Normal [facility] Renal function 2000 panelon 06-28-2022 Albumin [Mass/Vol] 3.6 g/dL Low 3.9-4.9 [facility] Comment on above: Order Comment: Speci men Type: BLOOD SPECIMENOrdering Facility: [facility] Address: [address] [place] [address] Performed By: #### 1 9123-9, 98182-0 ####[facility] LABORATORYCLIA [id number] [place] [address] [place] Anion gap [Moles/Vol] 6 mmol/L Low 9-18 [facility] Comment on above: Order Comment: Speci men Type: BLOOD SPECIMENOrdering Facility: [facility] Address: [address] [place] [address] Performed By: #### 1 9123-9, 51610-7 ####[facility] LABORATORYCLIA [id number] [place] [id number] [place] Calcium [Mass/Vol] 8.4 mg/dL Low 8.5-10.2 [facility] Comment on above: Order Comment: Speci men Type: BLOOD SPECIMENOrdering Facility: [facility] Address: [address] Performed By: #### 1 9123-9, 13380-6 ####[facility] LABORATORYCLIA [id number] [place] [id number] [place] Chloride [Moles/Vol] 102 mmol/L Normal 97-105 [facility] Comment on above: Order Comment: Speci men Type: BLOOD SPECIMENOrdering Facility: [facility] Address: [address] [place] [address] Performed By: #### 1 9123-9, 17588-6 ####[facility] LABORATORYCLIA [id number] [place] [address] [place] CO2 [Moles/Vol] 30 mmol/L Normal 22-30 [facility] Comment on above: Order Comment: Speci men Type: BLOOD SPECIMENOrdering Facility: [facility] Address: [address] [place] [address] Performed By: #### 1 9123-9, 11705-7 ####[facility] LABORATORYCLIA [id number] [place] [address] [place] Creatinine [Mass/Vol] 0.60 mg/dL Normal 0.58-0.96 [facility] Comment on above: Order Comment: Speci men Type: BLOOD SPECIMENOrdering Facility: [facility] Address: [address] [place], [place] [address] Performed By: #### 1 9123-9, 77994-9 ####[facility] LABORATORYCLIA [id number] [place] [id number] [place] ESTIMATED GLOMERULAR FILTRATION RATE 113 mL/min/1.73m??? Normal >=60 [facility] Comment on above: Order Comment: Speci men Type: BLOOD SPECIMENOrdering Facility: [facility] Address: [address] [place] [address] Result Comment: Randy mated Glomerular Filtration Rate (eGFR) is calculated using the 2020 CKD-EPI creatinine equation. This equation utilizes serum creatinine, sex, and age as parameters. The creatinine assay has traceable calibration to isotope dilution-mass spectrometry. Refer to KDIGO guidelines for clinical interpretation. In patients with unstable renal function, e.g. those with acute kidney injury, the eGFR may not accurately reflect actual GFR. Performed By: #### 1 9123-9, 53197-7 ####J[facility]AN[facility] LABORATORYCLIA [id number] [place] [address] [place] Glucose [Mass/Vol] 92 mg/dL Normal 74-99 [facility] Comment on above: Order Comment: [place] fields Type: BLOOD SPECIMENOrdering Facility: [facility] Address: [address] [place] [address] Result Comment: The [place] [employer] (ADA) provides guidance for cutoff values for fasting glucose and random glucose. The ADA defines fasting as no caloric intake for at least 8 hours. Fasting plasma glucose results between 100 to 125 mg/dL indicate increased risk for diabetes (prediabetes).Fasting plasma glucose results greater than or equal to 126 mg/dL meet the criteria for diagnosis of diabetes. In the absence of unequivocal hyperglycemia, results should be confirmed by repeat testing. In a patient with classic symptoms of hyperglycemia or hyperglycemic crisis, random plasma glucose results greater than or equal to 200 mg/dL meet the criteria for diagnosis of diabetes.Reference: Standards of Medical Care in Diabetes 2016, [place] [employer]. Diabetes Care. 2016.39(Suppl 1). Performed By: #### 1 9123-9, 31537-8 ####JUANPABLO LABORATORYCLIA [id number] [place] [address] [place] Phosphate [Mass/Vol] 3.7 mg/dL Normal 2.7-4.8 [facility] Comment on above: Order Comment: [place] fields Type: BLOOD SPECIMENOrdering Facility: [facility] Address: [address] [place] [address] Performed By: #### 1 9123-9, 15953-1 ####JUANPABLO LABORATORYCLIA [id number] [place] [address] [place] Potassium [Moles/Vol] 4.5 mmol/L Normal 3.7-5.1 [facility] Comment on above: Order Comment: Speci men Type: BLOOD SPECIMENOrdering Facility: [facility] Address: [address] [place] [address] Performed By: #### 1 9123-9, 54777-5 ####JUANPABLO LABORATORYCLIA [id number] [place] [id number] [place] Sodium [Moles/Vol] 138 mmol/L Normal 136-144 [facility] Comment on above: Order Comment: Speci men Type: BLOOD SPECIMENOrdering Facility: [facility] Address: [address] [place] [address] Performed By: #### 1 9123-9, 15206-5 ####[facility] LABORATORYCLIA [id number] [place] [address] [place] Urea nitrogen [Mass/Vol] 22 mg/dL High 7-21 [facility] Comment on above: Order Comment: Speci men Type: BLOOD SPECIMENOrdering Facility: [facility] Address: [address] [place] [address] Performed By: #### 1 9123-9, 83752-6 ####[facility] LABORATORYCLIA [id number] [place] [address] [place] CASE MANAGEMon 06-27-2022 CASE MANAGEM Normal [facility] Magnesium SerPl-mCncon 06-27 Magnesium [Mass/Vol] 1.9 mg/dL Normal 1.7-2.3 [facility] Comment on above: Order Comment: Speci men Type: BLOOD SPECIMENOrdering Facility: [facility] Address: [address] [place], [place] [address] Performed By: #### 1 9123-9, 80486-8 ####TUPELO LABORATORYCLIA [id number] [place] [id number] [place] NURSING PROGon 06-27-2022 NURSING PROG Normal [facility] NUTRITIONon 06-27-2022 NUTRITION Normal [facility] Renal function 2000 panelon 06-27-2022 Albumin [Mass/Vol] 3.4 g/dL Low 3.9-4.9 [facility] Comment on above: Order Comment: Speci men Type: BLOOD SPECIMENOrdering Facility: [facility] Address: [address] Performed By: #### 1 23-9, 21488-0 ####JUANPABLO LABORATORYCLIA [id number] [place] [address] [place] Anion gap [Moles/Vol] 12 mmol/L Normal 9-18 [facility] Comment on above: Order Comment: Speci men Type: BLOOD SPECIMENOrdering Facility: [facility] Address: [address] [place] [address] Performed By: #### 1 239, 57557-4 ####JUANPABLO LABORATORYCLIA [id number] [place] [address] [place] Calcium [Mass/Vol] 8.2 mg/dL Low 8.5-10.2 [facility] Comment on above: Order Comment: Speci men Type: BLOOD SPECIMENOrdering Facility: [facility] Address: [address] [place] [address] Performed By: #### 1 91239, 95069-9 ####JUANPABLO LABORATORYCLIA [id number] [place] [address] [place] Chloride [Moles/Vol] 105 mmol/L Normal 97-105 [facility] Comment on above: Order Comment: Speci men Type: BLOOD SPECIMENOrdering Facility: [facility] Address: [address] [place], [place] [address] Performed By: #### 1 9123-9, 38577-7 ####JUANPABLO LABORATORYCLIA [id number] [place] [address] [place] CO2 [Moles/Vol] 24 mmol/L Normal 22-30 [facility] Comment on above: Order Comment: Speci men Type: BLOOD SPECIMENOrdering Facility: [facility] Address: [address] [place], [place] [address] Performed By: #### 1 239, 64616-7 ####JUANPABLO LABORATORYCLIA [id number] [place] [address] [place] Creatinine [Mass/Vol] 0.54 mg/dL Low 0.58-0.96 [facility] Comment on above: Order Comment: [place] fields Type: BLOOD SPECIMENOrdering Facility: [facility] Address: [address] [place] [address] Performed By: #### 1 9123-9, 38982-8 ####TUPELO LABORATORYCLIA [id number] [address] [place] ESTIMATED GLOMERULAR FILTRATION RATE 116 mL/min/1.73m??? Normal >=60 [facility] Comment on above: Order Comment: [place] fields Type: BLOOD SPECIMENOrdering Facility: [facility] Address: [address] [place] [address] Result Comment: Randy mated Glomerular Filtration Rate (eGFR) is calculated using the 2020 CKD-EPI creatinine equation. This equation utilizes serum creatinine, sex, and age as parameters. The creatinine assay has traceable calibration to isotope dilution-mass spectrometry. Refer to KDIGO guidelines for clinical interpretation. In patients with unstable renal function, e.g. those with acute kidney injury, the eGFR may not accurately reflect actual GFR. Performed By: #### 1 9123-9, 23013-4 ####TUPELO LABORATORYCLIA [id number] [place] [address] [place] Glucose [Mass/Vol] 104 mg/dL High 74-99 [facility] Comment on above: Order Comment: [place] fields Type: BLOOD SPECIMENOrdering Facility: [facility] Address: [address] [place] [address] Result Comment: The [place] Diabetes [employer] (ADA) provides guidance for cutoff values for fasting glucose and random glucose. The ADA defines fasting as no caloric intake for at least 8 hours. Fasting plasma glucose results between 100 to 125 mg/dL indicate increased risk for diabetes (prediabetes).Fasting plasma glucose results greater than or equal to 126 mg/dL meet the criteria for diagnosis of diabetes. In the absence of unequivocal hyperglycemia, results should be confirmed by repeat testing. In a patient with classic symptoms of hyperglycemia or hyperglycemic crisis, random plasma glucose results greater than or equal to 200 mg/dL meet the criteria for diagnosis of diabetes.Reference: Standards of Medical Care in Diabetes 2016, [place] [employer]. Diabetes Care. 2016.39(Suppl 1). Performed By: #### 1 9123-9, 35021-7 ####JUANPABLO LABORATORYCLIA [id number] [place] [address] [place] Phosphate [Mass/Vol] 5.9 mg/dL High 2.7-4.8 [facility] Comment on above: Order Comment: Speci men Type: BLOOD SPECIMENOrdering Facility: [facility] Address: [address] [place] [address] Performed By: #### 1 9123-, 74364-2 ####JUANPABLO LABORATORYCLIA [id number] [place] [address] [place] Potassium [Moles/Vol] 4.4 mmol/L Normal 3.7-5.1 [facility] Comment on above: Order Comment: Speci men Type: BLOOD SPECIMENOrdering Facility: [facility] Address: [address] [place] [address] Performed By: #### 1 91239, 96838-6 ####JUANPABLO LABORATORYCLIA [id number] [place] [address] [place] Sodium [Moles/Vol] 141 mmol/L Normal 136-144 [facility] Comment on above: Order Comment: Speci men Type: BLOOD SPECIMENOrdering Facility: [facility] Address: [address] Performed By: #### 1 91239, 53360-8 ####JUANPABLO LABORATORYCLIA [id number] [place] [address] [place] Urea nitrogen [Mass/Vol] 10 mg/dL Normal 7-21 [facility] Comment on above: Order Comment: Speci men Type: BLOOD SPECIMENOrdering Facility: [facility] Address: [address] Performed By: #### 1 23, 06619-1 ####JUANPABLO LABORATORYCLIA [id number] [place] [address] [place] ALLIED HEALTHon 06-26-2022 ALLIED HEALTH Normal [facility] CASE MGT INIT ASSESon 2021 CASE MGT INIT ASSES Normal [facility] CBC W Auto Differential pane l (Bld)on 06-26-2022 Basophils (Bld) [#/Vol] 0.06 10*3/uL Normal <0.11 [facility] Comment on above: Order Comment: Speci men Type: BLOOD SPECIMENOrdering Facility: [facility] Address: [address] [place] [address] Performed By: #### 5 7021-8 ####[facility] LABORATORYCLIA [id number] [place] [address] [place] Basophils/100 WBC (Bld) 1.2 % Normal [facility] Comment on above: Order Comment: Speci men Type: BLOOD SPECIMENOrdering Facility: [facility] Address: [address] [place] [address] Performed By: #### 5 7021-8 ####TUPELO LABORATORYCLIA [id number] [place] [address] [place] Differential cell count method Nom (Bld) Auto Normal [facility] Comment on above: Order Comment: Speci men Type: BLOOD SPECIMENOrdering Facility: [facility] Address: [address] [place] [address] Performed By: #### 5 7021-8 ####[facility] LABORATORYCLIA [id number] [place] [address] [place] Eosinophils (Bld) [#/Vol] 0.13 10*3/uL Normal <0.46 [facility] Comment on above: Order Comment: Speci men Type: BLOOD SPECIMENOrdering Facility: [facility] Address: [address] [place] [address] Performed By: #### 5 7021-8 ####[facility] LABORATORYCLIA [id number] [place] [address] [place] Eosinophils/100 WBC (Bld) 2.6 % Normal [facility] Comment on above: Order Comment: Speci men Type: BLOOD SPECIMENOrdering Facility: [facility] Address: [address] [place] [address] Performed By: #### 5 7021-8 ####JUANPABLO LABORATORYCLIA [id number] [place] [address] [place] Erythrocyte distribution width (RBC) [Ratio] 14.6 % Normal 11.5-15.0 [facility] Comment on above: Order Comment: Speci men Type: BLOOD SPECIMENOrdering Facility: [facility] Address: [address] [place] [address] Performed By: #### 5 7021-8 ####JUANPABLO LABORATORYCLIA [id number] [address] [place] Hematocrit (Bld) [Volume fraction] 31.7 % Low 36.0-46.0 [facility] Comment on above: Order Comment: Speci men Type: BLOOD SPECIMENOrdering Facility: [facility] Address: [address] [place] [address] Performed By: #### 5 7021-8 ####[facility] LABORATORYCLIA [id number] [place] [address] [place] Hemoglobin (Bld) [Mass/Vol] 10.3 g/dL Low 11.5-15.5 [facility] Comment on above: Order Comment: Speci men Type: BLOOD SPECIMENOrdering Facility: [facility] Address: [address] [place] [address] Performed By: #### 5 7021-8 ####JUANPABLO LABORATORYCLIA [id number] [address] [place] IMMATURE GRAN % 0.2 % Normal [facility] Comment on above: Order Comment: Speci men Type: BLOOD SPECIMENOrdering Facility: [facility] Address: [address] [place] [address] Performed By: #### 5 7021-8 ####JUANPABLO LABORATORYCLIA [id number] [place] [address] [place] IMMATURE GRAN ABS <0.03 Normal <0.10 [facility] Comment on above: Order Comment: Speci men Type: BLOOD SPECIMENOrdering Facility: [facility] Address: [address] [place] [address] Performed By: #### 5 7021-8 ####[facility] LABORATORYCLIA [id number] [address] [place] Lymphocytes (Bld) [#/Vol] 2.74 10*3/uL Normal 1.00-4.00 [facility] Comment on above: Order Comment: Speci men Type: BLOOD SPECIMENOrdering Facility: [facility] Address: [address] [place] [address] Performed By: #### 5 7021-8 ####TUPELO LABORATORYCLIA [id number] [address] Lymphocytes/100 WBC (Bld) 54.7 % Normal [facility] Comment on above: Order Comment: Speci men Type: BLOOD SPECIMENOrdering Facility: [facility] Address: [address] [place] [address] Performed By: #### 5 7021-8 ####[facility] LABORATORYCLIA [id number] [address] [place] MCH (RBC) [Entitic mass] 28.8 pg Normal 26.0-34.0 [facility] Comment on above: Order Comment: Speci men Type: BLOOD SPECIMENOrdering Facility: [facility] Address: [address] [place] [address] Performed By: #### 5 7021-8 ####TUPELO LABORATORYCLIA [id number] [address] MCHC (RBC) [Mass/Vol] 32.5 g/dL Normal 30.5-36.0 [facility] Comment on above: Order Comment: Speci men Type: BLOOD SPECIMENOrdering Facility: [facility] Address: [address] [place] [address] Performed By: #### 5 7021-8 ####JUANPABLO LABORATORYCLIA [id number] [place] [address] [place] MCV (RBC) [Entitic vol] 88.5 fL Normal 80.0-100.0 [facility] Comment on above: Order Comment: Speci men Type: BLOOD SPECIMENOrdering Facility: [facility] Address: [address] [place] [address] Performed By: #### 5 7021-8 ####[facility] LABORATORYCLIA [id number] [place] [address] [place] Monocytes (Bld) [#/Vol] 0.51 10*3/uL Normal <0.87 [facility] Comment on above: Order Comment: Speci men Type: BLOOD SPECIMENOrdering Facility: [facility] Address: [address] [place] [address] Performed By: #### 5 7021-8 ####JUANPABLO LABORATORYCLIA [id number] [address] [place] Monocytes/100 WBC (Bld) 10.2 % Normal [facility] Comment on above: Order Comment: Speci men Type: BLOOD SPECIMENOrdering Facility: [facility] Address: [address] [place] [address] Performed By: #### 5 7021-8 ####JUANPABLO LABORATORYCLIA [id number] [place] [address] [place] Neutrophils (Bld) [#/Vol] 1.56 10*3/uL Normal 1.45-7.50 [facility] Comment on above: Order Comment: Speci men Type: BLOOD SPECIMENOrdering Facility: [facility] Address: [address] [place] [address] Performed By: #### 5 7021-8 ####[facility] LABORATORYCLIA [id number] [address] [place] Neutrophils/100 WBC (Bld) 31.1 % Normal [facility] Comment on above: Order Comment: Speci men Type: BLOOD SPECIMENOrdering Facility: [facility] Address: [address] Performed By: #### 5 7021-8 ####TU[facility] LABORATORYCLIA [id number] [place] [address] [place] Nucleated RBC (Bld) [#/Vol] 10*3/uL Normal <0.01 [facility] Comment on above: Order Comment: Speci men Type: BLOOD SPECIMENOrdering Facility: [facility] Address: [address] [place] [address] Performed By: #### 5 7021-8 ####[facility] LABORATORYCLIA [id number] [place] [address] [place] Nucleated RBC/100 WBC (Bld) [Ratio] 0.0 /100 WBC Normal [facility] Comment on above: Order Comment: Speci men Type: BLOOD SPECIMENOrdering Facility: [facility] Address: [address] [place] [address] Performed By: #### 5 7021-8 ####TUPELO LABORATORYCLIA [id number] [place] [address] [place] Platelet mean volume (Bld) [Entitic vol] 9.9 fL Normal 9.0-12.7 [facility] Comment on above: Order Comment: Speci men Type: BLOOD SPECIMENOrdering Facility: [facility] Address: [address] [place] [address] Performed By: #### 5 7021-8 ####[facility] LABORATORYCLIA [id number] [place] [address] [place] Platelets (Bld) [#/Vol] 256 10*3/uL Normal 150-400 [facility] Comment on above: Order Comment: Speci men Type: BLOOD SPECIMENOrdering Facility: [facility] Address: [address] [place], [place] [address] Performed By: #### 5 7021-8 ####TUPELO LABORATORYCLIA [id number] [place] [address] [place] RBC (Bld) [#/Vol] 3.58 10*6/uL Low 3.90-5.20 [facility] Comment on above: Order Comment: Speci men Type: BLOOD SPECIMENOrdering Facility: [facility] Address: [address] [place] [address] Performed By: #### 5 7021-8 ####[facility] LABORATORYCLIA [id number] [place] [address] [place] WBC (Bld) [#/Vol] 5.01 10*3/uL Normal 3.70-11.00 [facility] Comment on above: Order Comment: Speci men Type: BLOOD SPECIMENOrdering Facility: [facility] Address: [address] [place] [address] Performed By: #### 5 7021-8 ####TUPELO LABORATORYCLIA [id number] [place] [address] [facility] [place] CRP SerPl-ncon 06-26-2022 CRP [Mass/Vol] mg/L Normal <0.9 [facility] Comment on above: Order Comment: Speci men Type: BLOOD SPECIMENOrdering Facility: [facility] Address: [address] [place] [address] Performed By: #### 2 4323-8, 35751-3, 2776-09, 1988-01 ####TU[facility] LABORATORYCLIA [id number] [place] [address] [facility] Comprehensive metabolic 2000 panelon 06-26-2022 Albumin [Mass/Vol] 4.0 g/dL Normal 3.9-4.9 [facility] Comment on above: Order Comment: Speci men Type: BLOOD SPECIMENOrdering Facility: [facility] Address: [address] [place], [place] [address] Performed By: #### 2 4323-8, 48176-4, 2776-09, 1988-01 ####TU[facility] LABORATORYCLIA [id number] [place] [address] [place] ALP [Catalytic activity/Vol] 85 U/L Normal 34-123 [facility] Comment on above: Order Comment: Speci men Type: BLOOD SPECIMENOrdering Facility: [facility] Address: [facility] [address] Performed By: #### 2 4323-8, , 2776-09, 1988-01 ####JUANPABLO LABORATORYCLIA [id number] [place] [id number] [place] ALT [Catalytic activity/Vol] 13 U/L Normal 7-38 [facility] Comment on above: Order Comment: Speci men Type: BLOOD SPECIMENOrdering Facility: [facility] Address: [address] [place] [address] Performed By: #### 2 432-8, , 2776-09, 1988-01 ####JUANPABLO LABORATORYCLIA [id number] [place] [address] [place] Anion gap [Moles/Vol] 11 mmol/L Normal 9-18 [facility] Comment on above: Order Comment: Speci men Type: BLOOD SPECIMENOrdering Facility: [facility] Address: [address] [place] [address] Performed By: #### 2 432-8, , 2776-09, 1988-01 ####JUANPABLO LABORATORYCLIA [id number] [place] [address] [place] AST [Catalytic activity/Vol] 16 U/L Normal 13-35 [facility] Comment on above: Order Comment: Speci men Type: BLOOD SPECIMENOrdering Facility: [facility] Address: [address] [place], [place] [address] Performed By: #### 2 432-8, , 2776-09, 1988-01 ####JUANPABLO LABORATORYCLIA [id number] [place] [address] [place] Bilirubin [Mass/Vol] 0.4 mg/dL Normal 0.2-1.3 [facility] Comment on above: Order Comment: Speci men Type: BLOOD SPECIMENOrdering Facility: [facility] Address: [address] [place] [address] Performed By: #### 2 43211-19, , 2776-09, 1988-01 ####TU[facility] LABORATORYCLIA [id number] [place] [address] [place] Calcium [Mass/Vol] 8.8 mg/dL Normal 8.5-10.2 [facility] Comment on above: Order Comment: Speci men Type: BLOOD SPECIMENOrdering Facility: [facility] Address: [address] [place], [place] [address] Performed By: #### 2 8, , 2776-09, 1988-01 ####[facility] LABORATORYCLIA [id number] [place] [address] [place] Chloride [Moles/Vol] 107 mmol/L High 97-105 [facility] Comment on above: Order Comment: Speci men Type: BLOOD SPECIMENOrdering Facility: [facility] Address: [address] [place] [address] Performed By: #### 2 4323-04, , 2776-09, 1988-01 ####TU[facility] LABORATORYCLIA [id number] [place] [id number] [place] CO2 [Moles/Vol] 24 mmol/L Normal 22-30 [facility] Comment on above: Order Comment: Speci men Type: BLOOD SPECIMENOrdering Facility: [facility] Address: [address] [place] [address] Performed By: #### 2 8, , 2776-09, 1988-01 ####TU[facility] LABORATORYCLIA [id number] [place] [address] [place] Creatinine [Mass/Vol] 0.59 mg/dL Normal 0.58-0.96 [facility] Comment on above: Order Comment: Speci men Type: BLOOD SPECIMENOrdering Facility: [facility] Address: [address] [place], [place] [address] Performed By: #### 2 8, , 2776-09, 1988-01 ####TUPELO LABORATORYCLIA [id number] [place] [address] [place] ESTIMATED GLOMERULAR FILTRATION RATE 113 mL/min/1.73m??? Normal >=60 [facility] Comment on above: Order Comment: Sharonjonhie fields Type: BLOOD SPECIMENOrdering Facility: [facility] Address: [address] [place] [id number] Result Comment: Randy mated Glomerular Filtration Rate (eGFR) is calculated using the 2020 CKD-EPI creatinine equation. This equation utilizes serum creatinine, sex, and age as parameters. The creatinine assay has traceable calibration to isotope dilution-mass spectrometry. Refer to KDIGO guidelines for clinical interpretation. In patients with unstable renal function, e.g. those with acute kidney injury, the eGFR may not accurately reflect actual GFR. Performed By: #### 2 4323-8, 79379-6, 2776-09, 1988-01 ####TUPELO LABORATORYCLIA [id number] [place] [id number] [place] Glucose [Mass/Vol] 90 mg/dL Normal 74-99 [facility] Comment on above: Order Comment: [place] fields Type: BLOOD SPECIMENOrdering Facility: [facility] Address: [address] [place], [place] [address] Result Comment: The [place] [employer] (ADA) provides guidance for cutoff values for fasting glucose and random glucose. The ADA defines fasting as no caloric intake for at least 8 hours. Fasting plasma glucose results between 100 to 125 mg/dL indicate increased risk for diabetes (prediabetes).Fasting plasma glucose results greater than or equal to 126 mg/dL meet the criteria for diagnosis of diabetes. In the absence of unequivocal hyperglycemia, results should be confirmed by repeat testing. In a patient with classic symptoms of hyperglycemia or hyperglycemic crisis, random plasma glucose results greater than or equal to 200 mg/dL meet the criteria for diagnosis of diabetes.Reference: Standards of Medical Care in Diabetes 2016, [place] [employer]. Diabetes Care. 2016.39(Suppl 1). Performed By: #### 2 4323-8, 09557-4, 2776-09, 1988-01 ####TU[facility] LABORATORYCLIA [id number] [place] [id number] [place] Potassium [Moles/Vol] 4.2 mmol/L Normal 3.7-5.1 [facility] Comment on above: Order Comment: Speci men Type: BLOOD SPECIMENOrdering Facility: [facility] Address: [facility] [place] [phone] Performed By: #### 2 432-8, , 2776-09, 1988-01 ####[facility] LABORATORYCLIA [id number] [place] [address] [place] Protein [Mass/Vol] 6.2 g/dL Low 6.3-8.0 [facility] Comment on above: Order Comment: Speci men Type: BLOOD SPECIMENOrdering Facility: [facility] Address: [address] [place] [address] [place] [address] Performed By: #### 2 432-8, , 2776-09, 1988-01 ####[facility] LABORATORYCLIA [id number] [place] [address] [place] Sodium [Moles/Vol] 142 mmol/L Normal 136-144 [facility] Comment on above: Order Comment: Speci men Type: BLOOD SPECIMENOrdering Facility: [facility] Address: [address] [place] [address] Performed By: #### 2 432-8, , 2776-09, 1988-01 ####[facility] LABORATORYCLIA [id number] [place] [id number] [place] Urea nitrogen [Mass/Vol] 9 mg/dL Normal 7-21 [facility] Comment on above: Order Comment: Speci men Type: BLOOD SPECIMENOrdering Facility: [facility] Address: [address] [place] [address] [place] [id number] Performed By: #### 2 4323-8, , 2776-09, 1988-01 ####[facility] LABORATORYCLIA [id number] [place] [address] [place] HISTORY PHYSICALon HISTORY PHYSICAL Normal [facility] Magnesium SerPl-mCncon 06-26 Magnesium [Mass/Vol] 2.9 mg/dL High 1.7-2.3 [facility] Comment on above: Order Comment: Speci men Type: BLOOD SPECIMENOrdering Facility: [facility] Address: [address] [place] [address] Performed By: #### 2 4323-8, 34098-5, 2777-1, 1987- ####[facility] LABORATORYCLIA [id number] [place] [address] [place] NICOTINE AND METAB, URon URIN ANABASINE QUANT <5 Normal [facility] Comment on above: Order Comment: Speci men Type: URINE SPECIMENOrdering Facility: [facility] Address: [address] [place] [address] Performed By: #### U NICOT ####[facility] LABORATORIESCLIA [id number] [place] [address] URIN COTININE QUANT <15 Normal [facility] Comment on above: Order Comment: Speci men Type: URINE SPECIMENOrdering Facility: [facility] Address: [address] [place] [address] Performed By: #### U NICOT ####[facility] LABORATORIESCLIA [id number] [place] [address] URIN NICOTINE QUANT <15 Normal [facility] Comment on above: Order Comment: Speci men Type: URINE SPECIMENOrdering Facility: [facility] Address: [address] [place] [address] Result Comment: INTE RPRETIVE INFORMATION: Nicotine and Metabolites, Urine, QuantitativeMethodology: Quantitative Liquid Chromatography-Tandem MassSpectrometryPositive cutoff:Nicotine 15 ng/mLCotinine 15 ng/xB5-BP-Ewljcscq 50 ng/mLAnabasine 5 ng/mLFor medical purposes only; not valid for forensic use.This test is designed to evaluate recent use ofnicotine-containing products. Passive and active exposure cannotbe discriminated definitively, although a cutoff of 100 ng/mLcotinine is frequently used for surgery qualification purposes.For smoking cessation programs or compliance testing, the absenceof expected drug(s) and/or drug metabolite(s) may indicatenon-compliance, inappropriate timing of specimen collectionrelative to drug administration, poor drug absorption,diluted/adulterated urine, or limitations of testing. Theconcentration value must be greater than or equal to the cutoff emely reported as positive. Anabasine is included as a biomarker oftobacco use, versus nicotine replacement. Interpretive questionsshould be directed to the laboratory.This test was developed and its performance characteristicsdetermined by [facility]. It has not been cleared orapproved by the [place] Food and Drug Administration. This test wasperformed in a CLIA certified laboratory and is intended forclinical purposes.Performed By: [facility] [place], [place] [address]Gniccqdppw Director: Leslie Luna MD, PhD Performed By: #### U NICOT ####[facility]PITALIA [id number] [place] [address] URINE 3 [place] COTININE <50 Normal [facility] Comment on above: Order Comment: Speci men Type: URINE SPECIMENOrdering Facility: [facility] Address: [address] [place] [address] Performed By: #### U NICOT ####[facility] [id number] [place] [address] NURSING PROGon 06-26-2022 NURSING PROG Normal [facility] NUTRITIONon 06-26-2022 NUTRITION Normal [facility] Phosphate SerPl-mCncon 06-26 Phosphate [Mass/Vol] 4.7 mg/dL Normal 2.7-4.8 [facility] Comment on above: Order Comment: Speci men Type: BLOOD SPECIMENOrdering Facility: [facility] Address: [address] [place] [address] Performed By: #### 2 4323-8, 78443-8, 2777-1, 1987- ####[facility] LABORATORYCLIA [id number] [place] [address] [place] SARS-CoV-2 RNA Resp Ql MEAGAN+p robeon 06-26-2022 SARS-CoV-2 (COVID-19) RNA MEAGAN+probe Ql (Resp) COVID 19 RESULT: SARS-CoV-2 (Agent of COVID-19) Not Detected by RT-PCR or equivalent method. This test has been authorized by FDA under an Emergency Use Authorization (EUA). Normal [facility] Comment on above: Performed By: #### 9 4500-6 ####[facility] LABORATORYCLIA [id number] [address] Urinalysis complete panel (U )on 06-26-2022 Bacteria LM.HPF (Urine sed) [#/Area] Rare Abnormal None Seen [facility] Comment on above: Order Comment: Speci men Type: URINE SPECIMENOrdering Facility: [facility] Address: [address] [place] [address] Performed By: #### 2 4356-8 ####[facility] LABORATORYCLIA [id number] [address] Bilirubin Ql (U) Negative Normal Negative [facility] Comment on above: Order Comment: Speci men Type: URINE SPECIMENOrdering Facility: [facility] Address: [address] [place] [address] Performed By: #### 2 4356-8 ####[facility] LABORATORYCLIA [id number] [address] [place] Clarity (Unsp spec) Clear Normal Clear [facility] Comment on above: Order Comment: Speci men Type: URINE SPECIMENOrdering Facility: [facility] Address: [address] [place] [address] Performed By: #### 2 4356-8 ####[facility] LABORATORYCLIA [id number] [address] Color (U) Light Yellow Normal Yellow [facility] Comment on above: Order Comment: Speci men Type: URINE SPECIMENOrdering Facility: [facility] Address: [address] [place] [address] Performed By: #### 2 4356-8 ####[facility] LABORATORYCLIA [id number] [address] [place] Epithelial cells LM.HPF (Urine sed) [#/Area] Few Normal [facility] Comment on above: Order Comment: Speci men Type: URINE SPECIMENOrdering Facility: [facility] Address: [address] [place] [address] Performed By: #### 2 4356-8 ####[facility] LABORATORYCLIA [id number] [address] Glucose Test strip (U) [Mass/Vol] Negative Normal Negative [facility] Comment on above: Order Comment: Speci men Type: URINE SPECIMENOrdering Facility: [facility] Address: [address] [place] [address] Performed By: #### 2 4356-8 ####[facility] LABORATORYCLIA [id number] [address] Hemoglobin Ql (U) Trace Abnormal Negative [facility] Comment on above: Order Comment: Speci men Type: URINE SPECIMENOrdering Facility: [facility] Address: [address] [place] [address] Performed By: #### 2 4356-8 ####[facility] LABORATORYCLIA [id number] [address] [place] Ketones Ql (U) 1+ Abnormal Negative [facility] Comment on above: Order Comment: Speci men Type: URINE SPECIMENOrdering Facility: [facility] Address: [address] [place] [address] Performed By: #### 2 4356-8 ####[facility] LABORATORYCLIA [id number] [address] [place] Leukocyte esterase Test strip Ql (U) Negative Normal Negative [facility] Comment on above: Order Comment: Speci men Type: URINE SPECIMENOrdering Facility: [facility] Address: [address] [place] [address] Performed By: #### 2 4356-8 ####[facility] LABORATORYCLIA [id number] [place] [address] [place] Nitrite Ql (U) Negative Normal Negative [facility] Comment on above: Order Comment: Speci men Type: URINE SPECIMENOrdering Facility: [facility] Address: [address] [place] [address] Performed By: #### 2 4356-8 ####[facility] LABORATORYCLIA [id number] [place] [address] [place] pH (U) 6.5 [pH] Normal 5.0-8.0 [facility] Comment on above: Order Comment: Speci men Type: URINE SPECIMENOrdering Facility: [facility] Address: [address] [place] [address] Performed By: #### 2 4356-8 ####[facility] LABORATORYCLIA [id number] [place] [address] [place] Protein (U) [Mass/Vol] 1+ Abnormal Negative [facility] Comment on above: Order Comment: Speci men Type: URINE SPECIMENOrdering Facility: [facility] Address: [address] [place] [address] Performed By: #### 2 4356-8 ####[facility] LABORATORYCLIA [id number] [place] [address] [place] RBC LM.HPF (Urine sed) [#/Area] 0-3 /HPF Normal 0-3 /HPF [facility] Comment on above: Order Comment: Speci men Type: URINE SPECIMENOrdering Facility: [facility] Address: [address] [place] [address] Performed By: #### 2 4356-8 ####[facility] LABORATORYCLIA [id number] [place] [address] [place] Specific gravity (U) [Rel density] >1.050 High 1.005-1.03 0 [facility] Comment on above: Order Comment: Speci men Type: URINE SPECIMENOrdering Facility: [facility] Address: [address] [place] [address] Performed By: #### 2 4356-8 ####[facility] LABORATORYCLIA [id number] [place] [address] [place] Urobilinogen Ql (U) Negative Normal Negative [facility] Comment on above: Order Comment: Speci men Type: URINE SPECIMENOrdering Facility: [facility] Address: [address] [place] [address] Performed By: #### 2 4356-8 ####[facility] LABORATORYCLIA [id number] [place] [address] [place] [facility] WBC LM.HPF (Urine sed) [#/Area] 0-5 /HPF Normal 0-5 /HPF [facility] Comment on above: Order Comment: Speci men Type: URINE SPECIMENOrdering Facility: [facility] Address: [address] [place] [address] Performed By: #### 2 4356-8 ####[facility] LABORATORYCLIA [id number] [place] [address] [place] XR CHEST 1V FRONTALon 2021 XR CHEST 1V FRONTAL Normal [facility] ALLIED HEALTHon 06-25-2022 ALLIED HEALTH Normal [facility] Normal [facility] BETA HCG, QUANTITATIVE FOR E Don 06-25-2022 HCG.beta subunit Qn 2.6 m[IU]/mL Normal <5.0 [facility] Comment on above: Order Comment: Speci men Type: BLOOD SPECIMENOrdering Facility: [facility] Address: [address] [place] [address] Result Comment: Negmarie ticalista Performed By: #### H CGED ####[facility] LABORATORYCLIA [id number] [place] [address] [place] CBC W Auto Differential pane l (Bld)on 06-25-2022 Basophils (Bld) [#/Vol] 0.06 10*3/uL Normal <0.11 [facility] Comment on above: Order Comment: Speci men Type: BLOOD SPECIMENOrdering Facility: [facility] Address: [address] [place] [address] Performed By: #### 5 7021-8 ####[facility] LABORATORYCLIA [id number] [address] [place] Basophils/100 WBC (Bld) 0.9 % Normal [facility] Comment on above: Order Comment: Speci men Type: BLOOD SPECIMENOrdering Facility: [facility] Address: [address] [place] [address] Performed By: #### 5 7021-8 ####[facility] LABORATORYCLIA [id number] [address] Differential cell count method Nom (Bld) Auto Normal [facility] Comment on above: Order Comment: Speci men Type: BLOOD SPECIMENOrdering Facility: [facility] Address: [address] [place] [address] Performed By: #### 5 7021-8 ####[facility] LABORATORYCLIA [id number] [place] [address] [place] Eosinophils (Bld) [#/Vol] 0.09 10*3/uL Normal <0.46 [facility] Comment on above: Order Comment: Speci men Type: BLOOD SPECIMENOrdering Facility: [facility] Address: [address] [place] [address] Performed By: #### 5 7021-8 ####[facility] LABORATORYCLIA [id number] [address] [place] Eosinophils/100 WBC (Bld) 1.3 % Normal [facility] Comment on above: Order Comment: Speci men Type: BLOOD SPECIMENOrdering Facility: [facility] Address: [address] [place] [address] Performed By: #### 5 7021-8 ####[facility] LABORATORYCLIA [id number] [address] [place] Erythrocyte distribution width (RBC) [Ratio] 14.5 % Normal 11.5-15.0 [facility] Comment on above: Order Comment: Speci men Type: BLOOD SPECIMENOrdering Facility: [facility] Address: [address] [place] [address] Performed By: #### 5 7021-8 ####[facility] LABORATORYCLIA [id number] [address] [place] Hematocrit (Bld) [Volume fraction] 33.5 % Low 36.0-46.0 [facility] Comment on above: Order Comment: Speci men Type: BLOOD SPECIMENOrdering Facility: [facility] Address: [address] [place] [address] Performed By: #### 5 7021-8 ####[facility] LABORATORYCLIA [id number] [address] Hemoglobin (Bld) [Mass/Vol] 11.2 g/dL Low 11.5-15.5 [facility] Comment on above: Order Comment: Speci men Type: BLOOD SPECIMENOrdering Facility: [facility] Address: [address] [place] [address] Performed By: #### 5 7021-8 ####[facility] LABORATORYCLIA [id number] [address] IMMATURE GRAN % 0.3 % Normal [facility] Comment on above: Order Comment: Speci men Type: BLOOD SPECIMENOrdering Facility: [facility] Address: [address] [place] [address] Performed By: #### 5 7021-8 ####[facility] LABORATORYCLIA [id number] [address] IMMATURE GRAN ABS <0.03 Normal <0.10 [facility] Comment on above: Order Comment: Speci men Type: BLOOD SPECIMENOrdering Facility: [facility] Address: [address] [place] [address] Performed By: #### 5 7021-8 ####[facility] LABORATORYCLIA [id number] [address] [place] Lymphocytes (Bld) [#/Vol] 2.70 10*3/uL Normal 1.00-4.00 [facility] Comment on above: Order Comment: Speci men Type: BLOOD SPECIMENOrdering Facility: [facility] Address: [address] [place] [address] Performed By: #### 5 7021-8 ####[facility] LABORATORYCLIA [id number] [address] [place] Lymphocytes/100 WBC (Bld) 38.6 % Normal [facility] Comment on above: Order Comment: Speci men Type: BLOOD SPECIMENOrdering Facility: [facility] Address: [address] [place] [address] Performed By: #### 5 7021-8 ####[facility] LABORATORYCLIA [id number] [address] MCH (RBC) [Entitic mass] 29.2 pg Normal 26.0-34.0 [facility] Comment on above: Order Comment: Speci men Type: BLOOD SPECIMENOrdering Facility: [facility] Address: [address] [place] [address] Performed By: #### 5 7021-8 ####[facility] LABORATORYCLIA [id number] [address] MCHC (RBC) [Mass/Vol] 33.4 g/dL Normal 30.5-36.0 [facility] Comment on above: Order Comment: Speci men Type: BLOOD SPECIMENOrdering Facility: [facility] Address: [address] [place] [address] Performed By: #### 5 7021-8 ####[facility] LABORATORYCLIA [id number] [address] MCV (RBC) [Entitic vol] 87.5 fL Normal 80.0-100.0 [facility] Comment on above: Order Comment: Speci men Type: BLOOD SPECIMENOrdering Facility: [facility] Address: [address] [place] [address] Performed By: #### 5 7021-8 ####[facility] LABORATORYCLIA [id number] [address] [place] Monocytes (Bld) [#/Vol] 0.54 10*3/uL Normal <0.87 [facility] Comment on above: Order Comment: Speci men Type: BLOOD SPECIMENOrdering Facility: [facility] Address: [address] [place] [address] Performed By: #### 5 7021-8 ####[facility] LABORATORYCLIA [id number] [place] [address] [place] Monocytes/100 WBC (Bld) 7.7 % Normal [facility] Comment on above: Order Comment: Speci men Type: BLOOD SPECIMENOrdering Facility: [facility] Address: [address] [place] [address] Performed By: #### 5 7021-8 ####[facility] LABORATORYCLIA [id number] [place] [address] [place] Neutrophils (Bld) [#/Vol] 3.59 10*3/uL Normal 1.45-7.50 [facility] Comment on above: Order Comment: Speci men Type: BLOOD SPECIMENOrdering Facility: [facility] Address: [address] [place] [address] Performed By: #### 5 7021-8 ####[facility] LABORATORYCLIA [id number] [place] [address] [place] Neutrophils/100 WBC (Bld) 51.2 % Normal [facility] Comment on above: Order Comment: Speci men Type: BLOOD SPECIMENOrdering Facility: [facility] Address: [address] [place] [address] Performed By: #### 5 7021-8 ####[facility] LABORATORYCLIA [id number] [place] [address] [place] Nucleated RBC (Bld) [#/Vol] 10*3/uL Normal <0.01 [facility] Comment on above: Order Comment: Speci men Type: BLOOD SPECIMENOrdering Facility: [facility] Address: [address] [place] [address] Performed By: #### 5 7021-8 ####[facility] LABORATORYCLIA [id number] [place] [address] [place] Nucleated RBC/100 WBC (Bld) [Ratio] 0.0 /100 WBC Normal [facility] Comment on above: Order Comment: Speci men Type: BLOOD SPECIMENOrdering Facility: [facility] Address: [address] [place] [address] Performed By: #### 5 7021-8 ####[facility] LABORATORYCLIA [id number] [address] Platelet mean volume (Bld) [Entitic vol] 10.2 fL Normal 9.0-12.7 [facility] Comment on above: Order Comment: Speci men Type: BLOOD SPECIMENOrdering Facility: [facility] Address: [address] [place] [address] Performed By: #### 5 7021-8 ####[facility] LABORATORYCLIA [id number] [address] [place] Platelets (Bld) [#/Vol] 295 10*3/uL Normal 150-400 [facility] Comment on above: Order Comment: Speci men Type: BLOOD SPECIMENOrdering Facility: [facility] Address: [address] [place] [address] Performed By: #### 5 7021-8 ####[facility] LABORATORYCLIA [id number] [place] [address] [place] RBC (Bld) [#/Vol] 3.83 10*6/uL Low 3.90-5.20 [facility] Comment on above: Order Comment: Speci men Type: BLOOD SPECIMENOrdering Facility: [facility] Address: [address] [place] [address] Performed By: #### 5 7021-8 ####[facility] LABORATORYCLIA [id number] [place] [address] [place] WBC (Bld) [#/Vol] 7.00 10*3/uL Normal 3.70-11.00 [facility] Comment on above: Order Comment: Speci men Type: BLOOD SPECIMENOrdering Facility: [facility] Address: [address] [place], [place] [address] Performed By: #### 5 7021-8 ####[facility] LABORATORYCLIA [id number] [place] [address] [place] CT ABD/PEL W IVCONon 022 CT ABD/PEL W IVCON Normal [facility] Comprehensive metabolic 2000 panelon 06-25-2022 Albumin [Mass/Vol] 4.0 g/dL Normal 3.9-4.9 [facility] Comment on above: Order Comment: Speci men Type: BLOOD SPECIMENOrdering Facility: [facility] Address: [address] [place] [address] Performed By: #### 2 4323-8, 3040-3, ####[facility] LABORATORYCLIA [id number] [place] [id number] [place] ALP [Catalytic activity/Vol] 86 U/L Normal 34-123 [facility] Comment on above: Order Comment: Speci men Type: BLOOD SPECIMENOrdering Facility: [facility] Address: [address] [place] [address] Performed By: #### 2 4323-8, 0-3, ####[facility] LABORATORYCLIA [id number] [place] [address] [place] ALT [Catalytic activity/Vol] 13 U/L Normal 7-38 [facility] Comment on above: Order Comment: Speci men Type: BLOOD SPECIMENOrdering Facility: [facility] Address: [address] [place] [address] Performed By: #### 2 4323-8, 0-3, ####[facility] LABORATORYCLIA [id number] [place] [address] [place] Anion gap [Moles/Vol] 12 mmol/L Normal 9-18 [facility] Comment on above: Order Comment: Speci men Type: BLOOD SPECIMENOrdering Facility: [facility] Address: [address] [place] [address] Performed By: #### 2 4323-8, 3040-3, ####[facility] LABORATORYCLIA [id number] [place] [address] [place] AST [Catalytic activity/Vol] 16 U/L Normal 13-35 [facility] Comment on above: Order Comment: Speci men Type: BLOOD SPECIMENOrdering Facility: [facility] Address: [address] [place], [place] [address] Performed By: #### 2 4323-8, 3, ####[facility] LABORATORYCLIA [id number] [place] [address] [place] Bilirubin [Mass/Vol] 0.2 mg/dL Normal 0.2-1.3 [facility] Comment on above: Order Comment: Speci men Type: BLOOD SPECIMENOrdering Facility: [facility] Address: [address] [place], [place] [address] Performed By: #### 2 4323-8, 3, ####[facility] LABORATORYCLIA [id number] [place] [address] [place] Calcium [Mass/Vol] 8.9 mg/dL Normal 8.5-10.2 [facility] Comment on above: Order Comment: Speci men Type: BLOOD SPECIMENOrdering Facility: [facility] Address: [address] [place] [address] Performed By: #### 2 4323-8, 3039-11, ####[facility] LABORATORYCLIA [id number] [place] [address] [place] Chloride [Moles/Vol] 102 mmol/L Normal 97-105 [facility] Comment on above: Order Comment: Speci men Type: BLOOD SPECIMENOrdering Facility: [facility] Address: [address] [place], [place] [address] Performed By: #### 2 4323-8, 3, ####[facility] LABORATORYCLIA [id number] [place] [id number] [place] CO2 [Moles/Vol] 24 mmol/L Normal 22-30 [facility] Comment on above: Order Comment: Speci men Type: BLOOD SPECIMENOrdering Facility: [facility] Address: [address] [place], [place] [address] Performed By: #### 2 4323-8, 3, ####[facility] LABORATORYCLIA [id number] [place] [address] [place] Creatinine [Mass/Vol] 0.55 mg/dL Low 0.58-0.96 [facility] Comment on above: Order Comment: [place] Type: BLOOD SPECIMENOrdering Facility: [facility] Address: [address] [place], [place] [address] Performed By: #### 2 4323-8, 0-3, ####[facility] LABORATORYCLIA [id number] [place] [id number] [place] ESTIMATED GLOMERULAR FILTRATION RATE 115 mL/min/1.73m??? Normal >=60 [facility] Comment on above: Order Comment: [place] Type: BLOOD SPECIMENOrdering Facility: [facility] Address: [address] [place] [address] Result Comment: Randy mated Glomerular Filtration Rate (eGFR) is calculated using the 2020 CKD-EPI creatinine equation. This equation utilizes serum creatinine, sex, and age as parameters. The creatinine assay has traceable calibration to isotope dilution-mass spectrometry. Refer to KDIGO guidelines for clinical interpretation. In patients with unstable renal function, e.g. those with acute kidney injury, the eGFR may not accurately reflect actual GFR. Performed By: #### 2 4323-8, 3039-3, ####[facility] LABORATORYCLIA [id number] [place] [id number] [place] Glucose [Mass/Vol] 88 mg/dL Normal 74-99 [facility] Comment on above: Order Comment: [place] fields Type: BLOOD SPECIMENOrdering Facility: [facility] Address: [address] [place], [place] [address] Result Comment: The [place] [employer] Association (ADA) provides guidance for cutoff values for fasting glucose and random glucose. The ADA defines fasting as no caloric intake for at least 8 hours. Fasting plasma glucose results between 100 to 125 mg/dL indicate increased risk for diabetes (prediabetes).Fasting plasma glucose results greater than or equal to 126 mg/dL meet the criteria for diagnosis of diabetes. In the absence of unequivocal hyperglycemia, results should be confirmed by repeat testing. In a patient with classic symptoms of hyperglycemia or hyperglycemic crisis, random plasma glucose results greater than or equal to 200 mg/dL meet the criteria for diagnosis of diabetes.Reference: Standards of Medical Care in Diabetes 2016, [place] [employer]. Diabetes Care. 2016.39(Suppl 1). Performed By: #### 2 4323-8, 0-3, ####JUANPABLO LABORATORYCLIA [id number] [place] [address] [place] Potassium [Moles/Vol] 4.0 mmol/L Normal 3.7-5.1 [facility] Comment on above: Order Comment: Speci men Type: BLOOD SPECIMENOrdering Facility: [facility] Address: [address] [place] [address] Performed By: #### 2 4323-8, 3, ####JUANPABLO LABORATORYCLIA [id number] [place] [id number] [place] Protein [Mass/Vol] 6.9 g/dL Normal 6.3-8.0 [facility] Comment on above: Order Comment: Speci men Type: BLOOD SPECIMENOrdering Facility: [facility] Address: [address] [place] [address] Performed By: #### 2 4323-8, 3, ####JUANPABLO LABORATORYCLIA [id number] [place] [id number] [place] Sodium [Moles/Vol] 138 mmol/L Normal 136-144 [facility] Comment on above: Order Comment: Speci men Type: BLOOD SPECIMENOrdering Facility: [facility] Address: [address] Performed By: #### 2 4323-8, 3, ####JUANPABLO LABORATORYCLIA [id number] [place] [id number] [place] Urea nitrogen [Mass/Vol] 10 mg/dL Normal 7-21 [facility] Comment on above: Order Comment: Speci men Type: BLOOD SPECIMENOrdering Facility: [facility] Address: [address] [place] [address] Performed By: #### 2 4323-8, 3040-3, ####TUPELO LABORATORYCLIA [id number] [place] [id number] [facility] ED NOTEon 06-25-2022 ED NOTE HNO ID: [id number] Author: Alexandra Benítez RN Service: ? Author Type: Registered Nurse Type: ED Notes Filed: 06/25/2022 5:26 PM Note Text: Bed: 28-ED Expected date: Expected time: Means of arrival: Comments: Triage Normal [facility] ED PROV NOTEon 06-25-2022 ED PROV NOTE Normal [facility] Lipase SerPl-cCncon 06-25-20 22 Lipase [Catalytic activity/Vol] 9 U/L Low 16- [facility] Comment on above: Order Comment: Speci men Type: BLOOD SPECIMENOrdering Facility: [facility] Address: [address] [place] [address] Performed By: #### 2 4323-8, 3040-3, ####TUPELO LABORATORYCLIA [id number] [place] [id number] [facility] Magnesium SerPl-mCncon 06-25 Magnesium [Mass/Vol] 2.1 mg/dL Normal 1.7-2.3 [facility] Comment on above: Order Comment: Speci men Type: BLOOD SPECIMENOrdering Facility: [facility] Address: [address] [place], [place] [address] Performed By: #### 2 4323-8, 3040-3, ####TUPELO LABORATORYCLIA [id number] [place] [id number] [facility] XR CHEST 1V FRONTAL PORTon 1 XR CHEST 1V FRONTAL PORT Normal [facility] ANES POSTPROC EVALon 022 ANES POSTPROC EVAL HNO ID: [id number] Author: Rene Jain MD Service: Anesthesiology Author Type: Physician Type: Anesthesia Postprocedure Evaluation Filed: 06/18/2022 10:04 AM Note Text: POST ANESTHESIA EVALUATION NOTE : 1975 Procedure Summary Date: 06/18/22 Room / Location: Procedures Anesthesia Start: 08 Anesthesia Stop: 846 Procedure: EGD DIAGNOSTIC Diagnosis: (Abdominal pain) Scheduled Providers: Yg Artis MD; Rene Jain MD; Gretel Bradley RN; Miriam Martinez APRN.PRODUCTION ASSOCIATE Responsible Provider: Rene Jain MD Anesthesia Type: MAC ASA Status: 2 Anesthesia Type: MAC Last Vitals Vitals Value Taken Time BP 126/78 06/18/22 1003 Temp 36.6 ?C (97.9 ?F) 06/18/22 1003 HR SpO2 70 06/18/22 0940 Resp 16 06/18/22 1003 SpO2 97 % 06/18/22 1003 Post Anesthesia Patient Status Patient Evaluation: PACU. PACU/ICU Patient Condition: stable. Anticipated Disposition: inpatient floor planned admission. Neurological Status: aware and responsive. Pulmonary Status: breathing comfortably on room air Airway Control: returned to baseline unsupported. Cardiovascular Status: stable. Pain Management: satisfactory to patient Postoperative Hydration: acceptable. Intraoperative Events: no significant anesthesia events Recommendation: continue current plan of care. Anesthesia Observations No Documentation SIGNATURE: Rene Jain MD PATIENT NAME: Melina Díaz DATE: June 18, 2022 TIME: 10:04 AM CSN: [id number] [facility] ANES PRE-OPon 06-18-2022 ANES PRE-OP HNO ID: [id number] Author: Rene Jain MD Service: Anesthesiology Author Type: Physician Type: Anesthesia Preprocedure Evaluation Filed: 06/18/2022 8:16 AM Note Text: ANESTHESIOLOGY DAY OF SURGERY NOTE : 1975 Procedure Information Date/Time: 06/18/22829 Scheduled providers: Yg Artis MD; Rene Jain MD; Gretel Bradley RN; Miriam Martinez APRN.PRODUCTION ASSOCIATE Procedure: EGD DIAGNOSTIC Location: Procedures Estimated body mass index is 31.54 kg/m? as calculated from the following: Height as of this encounter: 172.7 cm (5' 8 ). Weight as of this encounter: 94.1 kg (207 lb 7.3 oz). Most recent hematocrit and potassium results: Hematocrit 27.0 06/17/2022 Potassium 3.8 06/17/2022 Relevant Problems CARDIO (+) induced hypertension ENDO (+) Acquired hypothyroidism I - PHYSICAL EVALUATION AIRWAY Patient intubated: No. Tracheostomy tube not present Mallampati: II. TM distance: >3 FB. Neck ROM: full. Mouth opening: adequate. Short neck: no. Thick neck: no DENTAL Normal dental observations. Dental findings: teeth intact. Additional exam findings: no II - ANESTHESIA PLAN ASA Score: 2 Anesthetic Plan: MAC NPO Status: adequate Monitoring plan: Standard ASA. Postoperative analgesic plan: parenteral or oral opioids. Informed Consent Anesthetic risks, benefits, alternatives, personnel and consent discussed: yes. Patient / Responsible Democrat agrees to proceed: yes Patient / Surrogate agrees to blood products: blood products not planned Significant changes in the patient condition since the History and Physical, not otherwise documented in primary service progress note: no. Potential Anesthesia issues that may suggest increased risk of complications or contraindication to planned procedure: none. No vitals data found for the desired time range. Facility-Administered Medications as of 06/18/2022 Medication Dose Route Frequency - [MAR Hold due to Transfer] aluminum-magnesium hydroxide-simethicone 200-200-20 mg/5 mL 30 mL (MAALOX,MYLANTA,MAG-AL PLUS) 30 mL ORAL q 6 H PRN And - [COMPLETED] lidocaine viscous 2 % 15 mL (XYLOCAINE) 15 mL ORAL ONCE - [MAR Hold due to Transfer] miSOPROStol 200 mcg tab(s) (CYTOTEC) 200 mcg ORAL w MEALS AND HS - [COMPLETED] ferric gluconate 125 mg in NaCl 0.9% 100 mL (FERRLECIT) 125 mg INTRAVENOUS ONCE AT 6PM - [MAR Hold due to Transfer] cholecalciferol 1,000 Units tab(s) (VITAMIN D3) 1,000 Units ORAL DAILY - [MAR Hold due to Transfer] pantoprazole 40 mg oral liquid (PROTONIX) 40 mg ORAL BID AC (0600/1600) - [COMPLETED] aluminum-magnesium hydroxide-simethicone 200-200-20 mg/5 mL 30 mL (MAALOX,MYLANTA,MAG-AL PLUS) 30 mL ORAL ONCE And - [COMPLETED] lidocaine viscous 2 % 15 mL (XYLOCAINE) 15 mL ORAL ONCE - [COMPLETED] NaCl 0.9% 1,000 mL iv bolus 1,000 mL INTRAVENOUS ONCE - [COMPLETED] morphine 4 mg injection 4 mg INTRAVENOUS ONCE - [] aluminum-magnesium hydroxide-simethicone 200-200-20 mg/5 mL 30 mL (MAALOX,MYLANTA,MAG-AL PLUS) 30 mL ORAL ONCE - [COMPLETED] prochlorperazine 10 mg injection (COMPAZINE) 10 mg INTRAVENOUS ONCE - [COMPLETED] HYDROmorphone 0.5 mg injection (DILAUDID) 0.5 mg INTRAVENOUS ONCE - [COMPLETED] HYDROmorphone 0.5 mg injection (DILAUDID) 0.5 mg INTRAVENOUS ONCE - [MAR Hold due to Transfer] heparin 5,000 Units injection 5,000 Units SUBCUTANEOUS q 12 H - [MAR Hold due to Transfer] NaCl 0.9% iv flush bag 20 mL INTRAVENOUS PRN - [MAR Hold due to Transfer] sodium chloride 0.9 % (flush) 10 mL (BD POSIFLUSH) 10 mL INTRAVENOUS q 12 H - [MAR Hold due to Transfer] sodium chloride 0.9 % (flush) 20 mL (BD POSIFLUSH) 20 mL INTRAVENOUS PRN - [MAR Hold due to Transfer] NaCl 0.9% iv infusion 75 mL/hr INTRAVENOUS CONTINUOUS - [MAR Hold due to Transfer] acetaminophen 650 mg tab(s) (TYLENOL) 650 mg ORAL q 6 H PRN - [MAR Hold due to Transfer] adult multivitamin 10 mL, folic acid 1 mg in NaCl 0.9% 1,000 mL INTRAVENOUS TUE and KECIA - [MAR Hold due to Transfer] diphenhydrAMINE 25 mg injection (BENADRYL) 25 mg INTRAVENOUS q 8 H PRN - [MAR Hold due to Transfer] sucralfate 1 g tab(s) (CARAFATE) 1 g ORAL AC and HS - [MAR Hold due to Transfer] levothyroxine 50 mcg tab(s) (SYNTHROID) 50 mcg ORAL DAILY (6 AM) - [MAR Hold due to Transfer] prochlorperazine 10 mg injection (COMPAZINE) 10 mg INTRAVENOUS q 6 H PRN - [MAR Hold due to Transfer] ondansetron 4 mg tab(s) (ZOFRAN) 4 mg ORAL q 6 H PRN Or - [MAR Hold due to Transfer] ondansetron (PF) 4 mg injection (ZOFRAN) 4 mg INTRAVENOUS q 6 H PRN - [COMPLETED] influenza vaccine qs 60 mcg (Patients 6 months to 64 years) 0.5 mL injection (FLUZONE ) 0.5 mL INTRAMUSCULAR ONCE (IMMUNIZATION) Outpatient Medications as of 06/18/2022 Medication Sig - levothyroxine (SYNTHROID) 50 mcg tablet Take 50 mcg by mouth. - oxyCODONE (ROXICODONE) 5 mg/5 mL oral solution Take 5 mg by mouth every 4 hours as needed for pain. - ALPRAZolam (X (more content not included)... Normal [facility] CASE [facility]: [id number] Author: KIRA Werner Service: ? Author Type: Electrical Plumbing Supervisor Type: Care Mgt Initial Assessment Filed: 06/18/2022 3:06 PM Note Text: CARE MANAGEMENT: ASSESSMENT AND DISCHARGE PLAN SERVICE DATE: June 18, 2022 SERVICE TIME: 3:01 PM PRIMARY CARE PHYSICIAN: Sean Ruiz DO Primary Contact: Extended Emergency Contact Information Primary Emergency Contact: Shaw Díaz Mobile Relation: None ADMISSION STATUS: Observation Insurance Provider: [employer] PPO NEEDS PRIOR TO DISCHARGE Needs Prior to Discharge: To Be Determined POTENTIAL TRANSITION PLANS Home Based on clinical judgement, Care Management will address the following needs: No transitional/discharge planning needs at this time Patient's perception of need for this admission: abdominal pain ADVANCE DIRECTIVES Current Advance Directive: Health Care Power of Roofing Subcontractor In Chart: Yes Up To Date and Valid: Yes MS/BEHAVIOR Baseline Mental Status Prior to this Illness what was the patient's Baseline Mental Status?: Alert AND Oriented Prior to this illness, has anyone described the patient having any of the following behaviors?: Not Applicable Relationship of the informant to the patient:: Self READMISSION Last Discharge Date: 10/05/19 Is this Within the Past 30 days? From what level of care did patient present?: Home Last discharge within 30 days: No PATIENT SCREEN Patient/Acrobatic Rigger Stated Goals: To have reduction in symptoms;To return home to life as it was Under the care of a PCP?: Yes, External Provider Provider Name: Dr. Ruiz Last Known Visit: May 2022 Does the patient have transportation upon discharge?: Yes Situation: Use of any community resources?: No Does the patient have a stable and supportive living arrangement and home setting?: Yes Situation: home with and 6 children Are there any potential risks or gaps identified by risk/functional/fall,etc. scores in the EMR?: No Any potential risks related to substance abuse and/or behavioral health?: No Based on clinical judgement, Care Management will address the following needs: No transitional/discharge planning needs at this time CAREGIVER ASSESSMENT Caregiver is ready, willing and able to meet the patient's needs as recommended by the inter-professional team:: No Caregiver needed MEDICAL No medical discharge barriers identified at this time. No social discharge barriers identified at this time. No behavioral/cognitive discharge barriers identified at this time. No functional discharge barriers identified at this time. FREEDOM OF CHOICE EXPLAINED: [place] of Choice Given: No Reason Not Given: No placements necessary Are you interested in bedside delivery of your medications? Yes ASSESSMENT AND PLAN: SW completed assessment over the phone with pt. Pt lives at home with her and their 6 children. Pt reports independence with ADLs and iADLs. Pt denies any DME or community resources. Pt has a PICC and goes weekly for IV hydration. Pt plans to return home with no additional skilled needs and her transporting at ID. SIGNATURE: KIRA Werner PATIENT NAME: Melina Díaz DATE: June 18, 2022 TIME: 3:01 PM CONTACT #: [phone] [facility] 06-18-2022 [facility] HNO ID: [id number] Author: Smita Durbin PA-C Service: Hospital Medicine Author Type: Physician Unix System Administrator Type: Discharge Summary Filed: 06/20/2022 7:51 AM Note Text: -- Attestation signed by Darline Roa MD at 06/20/2022 8:27 AM I have reviewed pertinent vitals, labs, images and records I have discussed Ms. Díaz on rounds today with our medicine team, and I agree with the findings and plan as documented in today's note by Ms Smita Durbin PA-C -- DISCHARGE SUMMARY PATIENT NAME: Melina Díaz ADMISSION DATE: 06/16/2022 DISCHARGE DATE: 06/18/2022 ATTENDING PHYSICIAN: Darline Roa MD Code Status: Not on file PCP: Sean Ruiz DO Highest Readmission Risk Score: 14 The 30 day readmissions risk score is derived from an internally validated risk model which evaluates patient level characteristics, utilization history, medication orders and lab results up until the day of discharge. Patients with a score of 40 or above are considered highest risk for readmission. Specific patient level drivers will be listed at the bottom of the summary. TRANSITIONS OF CARE CRITICAL ISSUES: FROST MEDICATION CHANGES: Starting amitriptyline 25 mg HS x 5 days, then 50 HS LAB MONITORING NEEDED: Not applicable IMAGING FOLLOW-UP: Not applicable LABS AND PROCEDURES PENDING AT DISCHARGE: Test Results Not Yet Available from This Hospitalization: Please Review at Your Follow Up Appointment Order Current Status GASTRIN BLD In process NICOTINE AND METAB, UR In process VITAMIN E/TOCOPHEROL In process Follow up above results with PCP FOLLOW UP: See follow up appointment listed below. REASON FOR HOSPITALIZATION: abdominal pain PRINCIPAL DIAGNOSIS: abdominal pain SECONDARY DIAGNOSIS: Principal Problem: Intractable abdominal pain POA: Yes Active Problems: Acquired hypothyroidism POA: Yes Nausea and vomiting POA: Yes Diarrhea due to malabsorption POA: Yes Anxiety POA: Yes History of Gelacio-en-Y gastric bypass POA: Yes Iron deficiency anemia POA: Yes Vitamin D deficiency POA: Yes Resolved Problems: * No resolved hospital problems. * HOSPITAL COURSE: Melina Díaz is a 46 year old female presented with past medical history of sleeve gastrectomy then was subsequently revised to a Gelacio-en-Y gastric bypass 12/2021, severe GJ stricture (s/p dilation x2), hypothyroidism, ADHD, Anxiety, Endometriosis, Kidney stone, Migraines, obesity who presents with nausea, vomiting, diarrhea, abdominal pain, dizziness, and headache since last Thursday. Admitted for pain control and GI consult. Pt not to receive narcotic pain meds as scans and recent EGD's do not show anything to cause pain. Started on cytotec and viscous lidocaine. Underwent EGD on 06/18/22, revealed .Normal esophagus, Gelacio-en-Y gastrojejunostomy with gastrojejunal anastomosis characterized by ulceration. Normal examined jejunum. Patient was seen by pain management and started on gabapentin during admission. Plans to follow up with Dr Maza, PCP, and pain management following discharge. OPERATIONS/PROCEDURE DURING THIS HOSPITALIZATION: * No surgery found * N/A CONSULTS DURING HOSPITALIZATION: Treatment Team: Attending Provider: Darline Roa MD Consulting: Jany Fuentes MD Primary Service: Smita Durbin PA-C Orders Placed This Encounter Smoking Cessation Education PHYSICIAN CONSULT CONSULT TO PAIN MANAGEMENT (AK,AV,EU,FV,STEFANI,MM,MR,SP) PATIENT CONDITION AT DISCHARGE: Stable ADVANCE CARE PLANNING DISCUSSION (if applicable): N/A DISCHARGE DISPOSITION: Home with Self Care Discharge Physical Exam: VITAL SIGNS: BP 126/78 Pulse 69 Temp 36.6 ?C (97.9 ?F) (Oral) Resp 16 Ht 172.7 cm (5' 8 ) Wt 94.1 kg (207 lb 7.3 oz) SpO2 97% BMI 31.54 kg/m? Physical Exam Performed GENERAL: Alert, no distress, cooperative SKIN: Skin color, texture, turgor normal. No rashes or lesions. HEAD/SINUSES: No significant findings EYES: PERRLA, EOMI OROPHARYNX: Lips, mucosa, and tongue normal. Teeth and gums normal. Oropharynx normal. NECK: No jugulovenous distention, No carotid bruits, Supple, No thyromegaly, no lymphadenopathy BACK: Back symmetric, Normal curvature, ROM normal, No CVAT. LUNGS: Lungs clear to auscultation, Good diaphragmatic excursion CARDIAC: RRR; no rubs, murmurs, or gallops ABDOMEN: Abdomen soft, tender RUQ, BS normal, No masses or organomegaly EXTREMITIES: Extremities normal, no deformities, edema, clubbing or skin discoloration. Good capillary refill., No ulcers NEURO: no focal deficits PULSES: 2+ radial, 2+ dorsalis pedis WOUND/SURGICAL SITE CARE: None SUPPLIES OR EQUIPMENT: None DIET: Resume pre-hospital diet ACTIVITY AND EXERCISE: Resume pre-hospital activity ADDITIONAL INFORMATION: Hospital Cours (more content not included)... Normal [facility] CONSULTon 06-18-2022 CONSULT HNO ID: [id number] Author: Jordan Monzon PA-C Service: Pain Management Author Type: Physician Unix System Administrator Type: Consults Filed: 06/18/2022 3:42 PM Note Text: PAIN MANAGEMENT CONSULT -- [facility] PATIENT NAME: Melina Díaz DATE of SERVICE: June 18, 2022 TIME of SERVICE:2:33 PM ATTENDING PROVIDER: Darline Roa MD PAIN MANAGEMENT SUMMARY: Mrs. Díaz is a 46 year old female S/P gastric bypass surgery in December of this year with subequent abdominal pain. Patient presented to the ED after noting increased vomiting, diarrhea, and abdominal pain for 10-14 days prior to admission. . Plan is as follows: Offered patient gabapentin liquid 300 mg PO BID. Patient reports allergy ( throat swelling requiring ED evaluation) with gabapentin use. Allergy list updated. Start amitriptyline 25 mg PO HS x 5 days then 50 mg PO HS. Follow up with Dr. Echeverria as scheduled. PROBLEM LIST DIAGNOSES ADDED: None Active Hospital Problems Diagnosis Date Noted Intractable abdominal pain 06/16/2022 Iron deficiency anemia 06/17/2022 Vitamin D deficiency 06/17/2022 Acquired hypothyroidism 06/16/2022 Nausea and vomiting 06/16/2022 Diarrhea due to malabsorption 06/16/2022 Anxiety 06/16/2022 History of Gelacio-en-Y gastric bypass 06/16/2022 CHIEF COMPLAINT: Midline RUQ and epigastric pain - exacerbated x 10-14 days. HPI: Melina Díaz is a 46 year old year old female admitted on 06/16/2022 with intractable abdominal pain. Consultation requested by Smita Durbin PA-C for an opinion regarding uncontrolled abd pain. My final recommendations will be communicated back to the requesting provider by way of shared medical record. Patient is S/P Gelacio-en-Y gastric bypass in December of 2021. Mrs. Díaz reports the onset of vomiting, diarrhea, and increased abdominal pain approximately 10-14 days prior to admission. No inciting event is identified. She describes a primarily sharp pain at the medial border of the right upper quadrant and the epigastrium that is also episodically burning and stabbing in nature. The pain is exacerbated with eating, forward flexion, tasks that require kneeling such as unloading a inspector material disposition or loading/unloading the washer or dryer, and vomiting. She notes varying degrees of relief with heat with the application of heat pads to her abdomen and back. She noted no relief with Tylenol. She currently rates her pain at a seven-point 5-04/2010. The patient's current inpatient analgesic regimen includes Tylenol 650 mg PO q6h PRN mild-moderate pain. OARRS Report was reviewed. The patient has received 33 controlled substance prescriptions from 11 different providers in the past 2 years. The patient's most recent prescription was dispensed on 05/15/22 (Dextroamp-Amphetamin 20 Mg Tab, 60 tabs/30 days). Overdose Risk Score: 240. Current outpatient MME: 0 mg. Patient's last opioid prescription was issued on 04/25/22 (Oxycodone Hcl 5 Mg/5 Ml Soln, 70 mL/6 days). PAST MEDICAL HISTORY: PAST MEDICAL HISTORY Diagnosis Date Breast mass 11/04/07 Right, biopsy benign Encounter for cosmetic surgery Endometriosis Excess skin of arm Fracture , ankle Localized adiposity Morbid obesity (HCC) Ovarian cyst induced hypertension Thyroid disorder PAST SURGICAL HISTORY: PAST SURGICAL HISTORY Procedure Laterality Date ASSIST ONLY x3 LAPAROSCOPY SURG CHOLECYSTECTOMY 2004 Cholecystectomy, lap PAST SURGICAL HISTORY OF 10/28/2011 gastric sleeve PAST SURGICAL HISTORY OF 2011 excision of goiter PAST SURGICAL HISTORY OF thyroid mass removed TOTAL ABDOMINAL HYSTERECT W/WO RMVL TUBE OVARY 05/01/2010-05/2011 Hysterectomy, partial uterus then completion ALLERGIES: ALLERGIES Allergen Reactions Adhesive Tape (Serina* Rash, Swelling, Itching Tomato Intolerance Toradol [Ketorolac * Hives, Swelling CURRENT MEDICATIONS: Current Facility-Administered Medications: aluminum-magnesium hydroxide-simethicone 200-200-20 mg/5 mL 30 mL (MAALOX,MYLANTA,MAG-AL PLUS) AND [COMPLETED] lidocaine viscous 2 % 15 mL (XYLOCAINE) miSOPROStol 200 mcg tab(s) (CYTOTEC) cholecalciferol 1,000 Units tab(s) (VITAMIN D3) pantoprazole 40 mg oral liquid (PROTONIX) heparin 5,000 Units injection NaCl 0.9% iv flush bag sodium chloride 0.9 % (flush) 10 mL (BD POSIFLUSH) sodium chloride 0.9 % (flush) 20 mL (BD POSIFLUSH) NaCl 0.9% iv infusion acetaminophen 650 mg tab(s) (TYLENOL) adult multivitamin 10 mL, folic acid 1 mg in NaCl 0.9% 1,000 mL sucralfate 1 g tab(s) (CARAFATE) levothyroxine 50 mcg tab(s) (SYNTHROID) prochlorperazine 10 mg injection (COMPAZINE) ondansetron 4 mg tab(s) (ZOFRAN) OR ondansetron (PF) 4 mg injection (ZOFRAN) FAMILY HISTORY: FAMILY HISTORY Problem Relation Age of Onset Thyroid Other 1st cousin - ? Grave's COPD Mother Hypertension Mother other (hypoglycemia) Mother Emphysema Father Coronary Ar (more content not included)... Normal [facility] HISTORY PHYSICALon HISTORY PHYSICAL HNO ID: [id number] Author: Yg Artis MD Service: Gastroenterology Author Type: Physician Type: HANDP Filed: 06/18/2022 8:37 AM Note Text: UPDATED HISTORY AND PHYSICAL EXAMINATION SERVICE DATE: 06/18/2022 SERVICE TIME: 8:37 AM PHYSICAL EXAM MUST BE COMPLETED ON ADMISSION The History and Physical (completed in the past 30 days) has been reviewed and the patient has been examined. The contents accurately reflect the patient's condition with the following additions or revisions since the HANDP was completed. Examination indicates no changes. This HANDP can be found in the Electronic Medical Record dated 06/16/22. SIGNATURE: Yg Artis MD PATIENT NAME: Melina Díaz DATE: June 18, 2022 TIME: 8:37 AM Normal [facility] Upper GI endoscopyon 022 Upper GI endoscopy [facility] Gastrointestinal Endoscopy Patient Name: Melina Díaz Procedure Date: 06/18/2022 8:36 AM Date of : 1975 Admit Type: Inpatient Age: 46 Room: [facility] 01 Gender: Female Note Status: Finalized Attending MD: Yg Artis MD Procedure: Upper GI endoscopy Indications: Abdominal pain, Peptic ulcer Providers: Yg Artis MD Patient Profile: This is a 46 year old female. Refer to note in patient chart for documentation of history and physical. Referring Physician: Brigitte Garcia (Referring MD) Medicines: Sedation Administered by an Anesthesia Professional, Monitored Anesthesia Care Complications: No immediate complications. Requesting Provider: Procedure: Pre-Anesthesia Assessment: - Prior to the procedure, a History and Physical was performed, and patient medications and allergies were reviewed. The patient is competent. The risks and benefits of the procedure and the sedation options and risks were discussed with the patient. All questions were answered and informed consent was obtained. Patient identification and proposed procedure were verified by the physician, the nurse, the anesthesiologist and the directional driller in the pre-procedure area in the procedure room. Mental Status Examination: alert and oriented. Airway Examination: normal oropharyngeal airway and neck mobility. Respiratory Examination: clear to auscultation. CV Examination: normal. Prophylactic Antibiotics: The patient does not require prophylactic antibiotics. Prior Anticoagulants: The patient has taken no previous anticoagulant or antiplatelet agents. ASA Grade Assessment: II - A patient with mild systemic disease. After reviewing the risks and benefits, the patient was deemed in satisfactory condition to undergo the procedure. The anesthesia plan was to use monitored anesthesia care (MAC). Immediately prior to administration of medications, the patient was re-assessed for adequacy to receive sedatives. The heart rate, respiratory rate, oxygen saturations, blood pressure, adequacy of pulmonary ventilation, and response to care were monitored throughout the procedure. The physical status of the patient was re-assessed after the procedure. After obtaining informed consent, the endoscope was passed under direct vision. Throughout the procedure, the patient's blood pressure, pulse, and oxygen saturations were monitored continuously. The Endoscope was introduced through the mouth, and advanced to the proximal jejunum. The upper GI endoscopy was accomplished without difficulty. The patient tolerated the procedure well. Moderate Sedation: MAC anesthesia was administered by the anesthesia team. Total Procedure Duration: 0 hours 1 minute 6 seconds Findings: The esophagus was normal. Evidence of a Gelacio-en-Y gastrojejunostomy was found. The gastrojejunal anastomosis was characterized by ulceration. A 8 mm deep, crated ulcer was seen at the distal aspect of the anastomosis. This was traversed. The gtdvvbqd-ff-xflyooi limb was examined. The examined jejunum was normal. Impression: - Normal esophagus. - Gelacio-en-Y gastrojejunostomy with gastrojejunal anastomosis characterized by ulceration. - Normal examined jejunum. - No specimens collected. Recommendation: - Continue present medications. - Return patient to [facility] for ongoing care. - Resume previous diet today. Procedure Code(s): --- Professional --- 11191, Esophagogastroduodenoscopy , flexible, transoral; diagnostic, including collection of specimen(s) by brushing or washing, when performed (separate procedure) Diagnosis Code(s): --- Professional --- Z98.0, Intestinal bypass and anastomosis status R10.9, Unspecified abdominal pain K27.9, Peptic ulcer, site unspecified, unspecified as acute or chronic, without hemorrhage or perforation CPT copyright 2019 [employer]. All rights reserved. The codes documented in this report are preliminary and upon help desk associate review may be revised to meet current compliance requirements. Attending Participation: I personally performed the entire procedure. Scope In: 8:43:35 AM Scope Out: 8:44:41 AM MD Yg Gerardo MD 06/18/2022 8:49:13 AM This report has been signed electronically by Yg Artis MD Number of Addenda: 0 Note Initiated On: 06/18/2022 8:36 AM Estimated Blood Loss: Estimated blood loss: none. Normal [facility] A-Tocopherol Vit E SerPl-mCn con 06-17-2022 Alpha tocopherol [Mass/Vol] 7.4 mg/L Normal 6.0-23.0 [facility] Comment on above: Order Comment: [place] fields Type: BLOOD SPECIMEN Ordering Facility: [facility] Address: [address] [place] [id number] Performed By: #### 5 8410-2 #### [facility] CLIA [id number] [address] [facility] [place] [address] [place] Alpha tocopherol [Mass/Vol]o n 06-17-2022 Beta+gamma tocopherol [Mass/Vol] 1.4 mg/L Normal 0.3-3.2 [facility] Comment on above: Order Comment: Speci men Type: BLOOD SPECIMEN Ordering Facility: [facility] Address: [address] [place] [address] Result Comment: This test was developed and its performance characteristics determined by [facility] Laboratory Medicine [place] ([facility]). It has not been cleared or approved by the FDA. -[facility] is regulated under CLIA as qualified to perform high-complexity testing. This test is used for clinical purposes. It should not be regarded as investigational or for research. Performed By: #### 5 8410-2 #### [facility] IA [id number] [address] [place] [address] [place] Basic metabolic 2000 panelon 06-17-2022 Anion gap [Moles/Vol] 6 mmol/L Low 9-18 [facility] Comment on above: Order Comment: Speci men Type: BLOOD SPECIMEN Ordering Facility: [facility] Address: [address] [place] [address] Performed By: #### 5 8410-2 #### [facility] IA [id number] [address] [place] [address] [place] Calcium [Mass/Vol] 8.6 mg/dL Normal 8.5-10.2 [facility] Comment on above: Order Comment: Speci men Type: BLOOD SPECIMEN Ordering Facility: [facility] Address: [address] [place], [place] [address] Performed By: #### 5 8410-2 #### [facility] IA [id number] [address] [place] [address] [place] Chloride [Moles/Vol] 108 mmol/L High 97-105 [facility] Comment on above: Order Comment: Speci men Type: BLOOD SPECIMEN Ordering Facility: [facility] Address: [address] [place], [place] [address] Performed By: #### 5 8410-2 #### [facility] IA [id number] [address] [place] [address] [place] CO2 [Moles/Vol] 27 mmol/L Normal 22-30 [facility] Comment on above: Order Comment: [place] donnie Type: BLOOD SPECIMEN Ordering Facility: [facility] Address: [address] [place], [place] [address] Performed By: #### 5 8410-2 #### [facility] CLIA [id number] [address] [place] [address] [place] Creatinine [Mass/Vol] 0.51 mg/dL Low 0.58-0.96 [facility] Comment on above: Order Comment: [place] [facility] Type: BLOOD SPECIMEN Ordering Facility: [facility] Address: [address] [place], [place] [address] Performed By: #### 5 8410-2 #### [facility] CLIA [id number] [address] [place] ESTIMATED GLOMERULAR FILTRATION RATE 117 mL/min/1.73m??? Normal >=60 [facility] Comment on above: Order Comment: [place] [facility] Type: BLOOD SPECIMEN Ordering Facility: [facility] Address: [address] [place] [address] Result Comment: Randy mated Glomerular Filtration Rate (eGFR) is calculated using the 2020 CKD-EPI creatinine equation. This equation utilizes serum creatinine, sex, and age as parameters. The creatinine assay has traceable calibration to isotope dilution-mass spectrometry. Refer to KDIGO guidelines for clinical interpretation. In patients with unstable renal function, e.g. those with acute kidney injury, the eGFR may not accurately reflect actual GFR. Performed By: #### 5 8410-2 #### [facility] CLIA [id number] [address] [place] [address] [place] Glucose [Mass/Vol] 88 mg/dL Normal 74-99 [facility] Comment on above: Order Comment: [place] fields Type: BLOOD SPECIMEN Ordering Facility: [facility] Address: [address] [place] [address] Result Comment: The [place] [employer] (ADA) provides guidance for cutoff values for fasting glucose and random glucose. The ADA defines fasting as no caloric intake for at least 8 hours. Fasting plasma glucose results between 100 to 125 mg/dL indicate increased risk for diabetes (prediabetes). Fasting plasma glucose results greater than or equal to 126 mg/dL meet the criteria for diagnosis of diabetes. In the absence of unequivocal hyperglycemia, results should be confirmed by repeat testing. In a patient with classic symptoms of hyperglycemia or hyperglycemic crisis, random plasma glucose results greater than or equal to 200 mg/dL meet the criteria for diagnosis of diabetes. Reference: Standards of Medical Care in Diabetes 2016, [place] [employer]. Diabetes Care. 2016.39(Suppl 1). Performed By: #### 5 8410-2 #### [facility] CLIA [id number] [address] [place] [address] [place] Potassium [Moles/Vol] 3.8 mmol/L Normal 3.7-5.1 [facility] Comment on above: Order Comment: [place] fields Type: BLOOD SPECIMEN Ordering Facility: [facility] Address: [address] [place] [address] Performed By: #### 5 8410-2 #### [facility] IA [id number] [address] [place] [address] [place] Sodium [Moles/Vol] 141 mmol/L Normal 136-144 [facility] Comment on above: Order Comment: [place] fields Type: BLOOD SPECIMEN Ordering Facility: [facility] Address: [address] [place] [address] Performed By: #### 5 8410-2 #### [facility] IA [id number] [address] [place] [address] [place] Urea nitrogen [Mass/Vol] 5 mg/dL Low 7-21 [facility] Comment on above: Order Comment: [place] fields Type: BLOOD SPECIMEN Ordering Facility: [facility] Address: [address] [place] [address] Performed By: #### 5 8410-2 #### [facility] IA [id number] [address] [place] [address] [place] CBC panel Auto (Bld)on 06-17 Erythrocyte distribution width (RBC) [Ratio] 14.3 % Normal 11.5-15.0 [facility] Comment on above: Order Comment: Speci men Type: BLOOD SPECIMEN Ordering Facility: [facility] Address: [address] [place] [address] Performed By: #### 5 8410-2 #### [facility] CLIA [id number] [address] [facility] Hematocrit (Bld) [Volume fraction] 27.0 % Low 36.0-46.0 [facility] Comment on above: Order Comment: Speci men Type: BLOOD SPECIMEN Ordering Facility: [facility] Address: [address] [place] [address] Performed By: #### 5 8410-2 #### [facility] IA [id number] [address] [place] Hemoglobin (Bld) [Mass/Vol] 8.6 g/dL Low 11.5-15.5 [facility] Comment on above: Order Comment: Speci men Type: BLOOD SPECIMEN Ordering Facility: [facility] Address: [address] [place] [address] Performed By: #### 5 8410-2 #### [facility] IA [id number] [address] [place] [address] [place] MCH (RBC) [Entitic mass] 28.7 pg Normal 26.0-34.0 [facility] Comment on above: Order Comment: Speci men Type: BLOOD SPECIMEN Ordering Facility: [facility] Address: [address] [place], [place] [address] Performed By: #### 5 8410-2 #### [facility] CLIA [id number] [address] [place], [place] [id number] [place] [address] [place] MCHC (RBC) [Mass/Vol] 31.9 g/dL Normal 30.5-36.0 [facility] Comment on above: Order Comment: Speci men Type: BLOOD SPECIMEN Ordering Facility: [facility] Address: [address] [place] [address] Performed By: #### 5 8410-2 #### [facility] CLIA [id number] [address] [place] [address] [place] MCV (RBC) [Entitic vol] 90.0 fL Normal 80.0-100.0 [facility] Comment on above: Order Comment: Speci men Type: BLOOD SPECIMEN Ordering Facility: [facility] Address: [address] [place] [address] Performed By: #### 5 8410-2 #### [facility] IA [id number] [address] [place] [address] [place] Nucleated RBC (Bld) [#/Vol] 10*3/uL Normal <0.01 [facility] Comment on above: Order Comment: Speci men Type: BLOOD SPECIMEN Ordering Facility: [facility] Address: [address] [place] [address] Performed By: #### 5 8410-2 #### [facility] [id number] [place] [address] [place] Platelet mean volume (Bld) [Entitic vol] 9.8 fL Normal 9.0-12.7 [facility] Comment on above: Order Comment: Speci men Type: BLOOD SPECIMEN Ordering Facility: [facility] Address: [address] [place] [address] Performed By: #### 5 8410-2 #### [facility] IA [id number] [address] [place] [address] [place] Platelets (Bld) [#/Vol] 210 10*3/uL Normal 150-400 [facility] Comment on above: Order Comment: Speci men Type: BLOOD SPECIMEN Ordering Facility: [facility] Address: [address] [place], [place] [address] Performed By: #### 5 8410-2 #### [facility] IA [id number] [place] [address] [place] RBC (Bld) [#/Vol] 3.00 10*6/uL Low 3.90-5.20 [facility] Comment on above: Order Comment: Speci men Type: BLOOD SPECIMEN Ordering Facility: [facility] Address: [address] Performed By: #### 5 8410-2 #### [facility] CLIA [id number] [address] [place] WBC (Bld) [#/Vol] 3.49 10*3/uL Low 3.70-11.00 [facility] Comment on above: Order Comment: Speci men Type: BLOOD SPECIMEN Ordering Facility: [facility] Address: [address] Performed By: #### 5 8410-2 #### [facility] CLIA [id number] CONSULTon 06-17-2022 CONSULT HNO ID: [id number] Author: Brigitte Garcia APRN.CNP Service: Gastroenterology Author Type: Nurse Practitioner Type: Consults Filed: 06/17/2022 9:57 AM Note Text: -- Attestation signed by Yg Artis MD at 06/18/2022 8:37 AM -- GI INITIAL CONSULT NOTE SERVICE DATE: 06/17/2022 SERVICE TIME: 07 REASON FOR CONSULT: Abd pain REQUESTING PHYSICIAN: Crispin PRIMARY CARE PHYSICIAN: DO Mane Ponce Ms. Díaz is a 46 year old female with a PMH of ADHD, hysterectomy 2/2 endometriosis, gastric sleeve c/b n/v abd pain and 12/2021 had ASCENCIONRLakshmi c/b ulcerations and strictures who presents with abd pain and n/v. Since her RnY she has not been able to get passed the pureed stage. She continued to have vomiting in 03/2022. 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 She was started on PPI and carafate but symptoms returned 1 week later. Repeat EGD showed strictures and ulcerations- dilated. Dr. Bose recommended TPN or feeding tube and she wanted TPN. She went for a 2nd opinion with Dr. Blanca and repeat EGD was unremarkable with normal bx. She c/w N/V. She got a PICC line and gets IV hydration 2 days a week. She has RUQ stabbing pain. She has had on and of Opioid use for pain. She was seen by Dr. Fuentes last week who recommended her to follow up with Dr. Ozuna. He recommended EGD to assess anastomosis and depending on findings may need revision. Started on Cytotec and ordered nutrition labs. After leaving Dr. Mcgrath office pain became worse and she passed out. She has pain with eating. She tried jello last night and she had pain again. She states she is having loose stools. Did have an issue with constipation which was relieved with Miralax and senna. Pt has had abd pain for years even prior to gastric sleeve. She states she has always had ulcers. FUNCTIONAL STATUS: Independent PAST MEDICAL HISTORY Diagnosis Date Breast mass 11/04/07 Right, biopsy benign Encounter for cosmetic surgery Endometriosis Excess skin of arm Fracture , ankle Localized adiposity Morbid obesity (HCC) Ovarian cyst induced hypertension Thyroid disorder PAST SURGICAL HISTORY Procedure Laterality Date ASSIST ONLY x3 LAPAROSCOPY SURG CHOLECYSTECTOMY 2004 Cholecystectomy, lap PAST SURGICAL HISTORY OF 10/28/2011 gastric sleeve PAST SURGICAL HISTORY OF 2011 excision of goiter PAST SURGICAL HISTORY OF thyroid mass removed TOTAL ABDOMINAL HYSTERECT W/WO RMVL TUBE OVARY 05/01/2010-05/2011 Hysterectomy, partial uterus then completion FAMILY HISTORY Problem Relation Age of Onset Thyroid Other 1st cousin - ? Grave's COPD Mother Hypertension Mother other (hypoglycemia) Mother Emphysema Father Coronary Artery Disease Father Ischemic Heart Disease Father 58 s/p stents Hypertension Father Asthma Sister 1/2 sister with female cysts other (unkown) Sister BiPolar-Bulemia None Brother 09/15--unkown Social History Tobacco Use Smoking status: Never Smokeless tobacco: Never Vaping Use Vaping Use: Never used Substance Use Topics Alcohol use: Yes Drug use: No levothyroxine (SYNTHROID) 50 mcg tablet, Take 50 mcg by mouth., Disp: , Rfl: , Past Week miSOPROStol (CYTOTEC) 200 mcg tablet, Take 1 tablet by mouth four times daily., Disp: 360 tablet, Rfl: 0, 06/15/2022 sucralfate (CARAFATE) 100 mg/mL suspension, Take 10 mL by mouth before meals and at bedtime., Disp: 3600 mL, Rfl: 0, 06/15/2022 oxyCODONE (ROXICODONE) 5 mg/5 mL oral solution, Take 5 mg by mouth every 4 hours as needed for pain., Disp: , Rfl: , 06/15/2022 ALPRAZolam (XANAX) 0.5 mg tablet, Take 0.5 mg by mouth at bedtime as needed., Disp: , Rfl: , 06/15/2022 granisetron HCl (KYTRIL INTRAVEN.), 300 mcg., Disp: , Rfl: , 06/12/2022 Omeprazole 40 mg capsule, Take 40 mg by mouth twice daily., Disp: , Rfl: , 06/15/2022 nystatin cream, Apply to affected area twice daily., Disp: , Rfl: , 06/15/2022 MULTI-VITAMIN ORAL, Take 1 tablet by mouth once daily., Disp: , Rfl: , 06/15/2022 cyanocobalamin, vitamin B-12, (B-12 COMPLIANCE) 1,000 mcg/mL kit, 1 mL by INJECTION(UNSPECIFIED PARENTERAL ROUTES) route one time a week., Disp: , Rfl: , 06/14/2022 dextroamphetamine-amphetam ine (ADDERALL) 20 mg tablet, Take 20 mg by mouth twice daily., Disp: , Rfl: , 06/14/2022 Current Facility-Administered Medications Medication Dose Route Frequency heparin 5,000 Units injection 5,000 Units SUBCUTANEOUS q 12 H NaCl 0.9% iv flush bag 20 mL INTRAVENOUS PRN sodium chloride 0.9 % (flush) 10 mL (BD POSIFLUSH) 10 mL INTRAVENOUS q 12 H sodium chloride 0.9 % (flush) 20 mL (BD POSIFLUSH) 20 mL INTRAVENOUS PRN NaCl 0.9% iv infusion 75 mL/hr INTRAVENOU (more content not included)... Normal [facility] HCG Preg Ur Qlon 06-17-2022 HCG ( test) Ql (U) Negative Normal Negative [facility] Comment on above: Order Comment: Speci men Type: BLOOD SPECIMEN Ordering Facility: [facility] Address: [address] [place] [address] Result Comment: This test is intended to aid in the early detection of . Very dilute urine samples, as indicated by a low specific gravity, may not contain security systems sales representative levels of hCG. This test detects intact hCG only. This test does not reliably detect hCG degradation products, including free-beta subunit and beta-core fragment. Therefore, this test may show reduced reactivity in urine after 8 weeks gestation. A number of conditions other than , including trophoblastic disease and certain non-trophoblastic neoplasms cause elevated levels of hCG. As with any assay employing mouse antibodies, the possibility exists for interference by human anti-mouse antibodies (HAMA) in the specimen. The test provides a presumptive diagnosis for . Performed By: #### 5 8410-2 #### [facility] CLIA [id number] [address] [facility] [address] [place] NICOTINE AND METAB, URon URIN ANABASINE QUANT <5 Normal [facility] Comment on above: Order Comment: Speci men Type: URINE SPECIMENOrdering Facility: [facility] Address: [address] [place] [address] Performed By: #### U NICOT ####[facility] [id number] [place] [address] URIN COTININE QUANT <15 Normal [facility] Comment on above: Order Comment: Speci men Type: URINE SPECIMENOrdering Facility: [facility] Address: [address] [place] [address] Performed By: #### U NICOT ####[facility] [id number] [place] [address] URIN NICOTINE QUANT <15 Normal [facility] Comment on above: Order Comment: Speci men Type: URINE SPECIMENOrdering Facility: [facility] Address: [address] [place] [address] Result Comment: INTE RPRETIVE INFORMATION: Nicotine and Metabolites, Urine, Quantitative Methodology: Quantitative Liquid Chromatography-Tandem Mass Spectrometry Positive cutoff: Nicotine 15 ng/mL Cotinine 15 ng/mL 8-[id number] 50 ng/mL Anabasine 5 ng/mL For medical purposes only; not valid for forensic use. This test is designed to evaluate recent use of nicotine-containing products. Passive and active exposure cannot be discriminated definitively, although a cutoff of 100 ng/mL cotinine is frequently used for surgery qualification purposes. For smoking cessation programs or compliance testing, the absence of expected drug(s) and/or drug metabolite(s) may indicate non-compliance, inappropriate timing of specimen collection relative to drug administration, poor drug absorption, diluted/adulterated urine, or limitations of testing. The concentration value must be greater than or equal to the cutoff to be reported as positive. Anabasine is included as a biomarker of tobacco use, versus nicotine replacement. Interpretive questions should be directed to the laboratory. This test was developed and its performance characteristics determined by [facility]. It has not been cleared or approved by the [place] Food and Drug Administration. This test was performed in a CLIA certified laboratory and is intended for clinical purposes. Performed By: [facility] [address] [place] [address] Physician Office Specialist: Leslie Luna MD, PhD Performed By: #### U NICOT ####[facility]CLIA [id number] [place] [address] URINE 3 [place] COTININE <50 Normal [facility] Comment on above: Order Comment: Speci men Type: URINE SPECIMENOrdering Facility: [facility] Address: [address] [place] [address] Performed By: #### U NICOT ####[facility]IESCLIA [id number] [place] [address] Urinalysis complete panel (U )on 06-17-2022 Bilirubin Ql (U) Negative Normal Negative [facility] Comment on above: Order Comment: Speci men Type: URINE SPECIMEN Ordering Facility: [facility] Address: [address] [place], [place] [address] Performed By: #### 2 4356-8 #### [facility] IA [id number] [address] [place] [address] [place] Clarity (Unsp spec) Clear Normal Clear [facility] Comment on above: Order Comment: Speci men Type: URINE SPECIMEN Ordering Facility: [facility] Address: [address] [place] [address] Performed By: #### 2 4356-8 #### [facility] [place] [id number] [place] [address] [place] Color (U) Yellow Normal Yellow [facility] Comment on above: Order Comment: Speci men Type: URINE SPECIMEN Ordering Facility: [facility] Address: [address] [place] [address] Performed By: #### 2 4356-8 #### [facility] [id number] [address] [place] [address] [place] Glucose Test strip (U) [Mass/Vol] Negative Normal Negative [facility] Comment on above: Order Comment: Speci men Type: URINE SPECIMEN Ordering Facility: [facility] Address: [address] [place] [address] Performed By: #### 2 4356-8 #### [facility] [id number] [address] [place] [address] [place] Hemoglobin Ql (U) Negative Normal Negative [facility] jhony Comment on above: Order Comment: Speci men Type: URINE SPECIMEN Ordering Facility: [facility] Address: [address] [place], [place] [address] Performed By: #### 2 4356-8 #### [facility] [place] [id number] [address] [place] [address] [place] Ketones Ql (U) Negative Normal Negative [facility] Comment on above: Order Comment: Speci men Type: URINE SPECIMEN Ordering Facility: [facility] Address: [address] [place] [address] Performed By: #### 2 4356-8 #### [facility] [place] [id number] [address] [place] [address] Leukocyte esterase Test strip Ql (U) Negative Normal Negative [facility] Comment on above: Order Comment: Speci men Type: URINE SPECIMEN Ordering Facility: [facility] Address: [address] [place] [address] Performed By: #### 2 4356-8 #### [facility] [place] [id number] [place] [address] [place] Nitrite Ql (U) Negative Normal Negative [facility] Comment on above: Order Comment: Speci men Type: URINE SPECIMEN Ordering Facility: [facility] Address: [address] [place] [address] Performed By: #### 2 4356-8 #### [facility] [place] [id number] [address] [place] [address] [place] pH (U) 7.0 [pH] Normal 5.0-8.0 [facility] Comment on above: Order Comment: Speci men Type: URINE SPECIMEN Ordering Facility: [facility] Address: [address] [place] [address] Performed By: #### 2 4356-8 #### [facility] [place] [id number] [address] [place] [address] [place] Protein (U) [Mass/Vol] Negative Normal Negative [facility] Comment on above: Order Comment: Speci men Type: URINE SPECIMEN Ordering Facility: [facility] Address: [address] [place] [address] Performed By: #### 2 4356-8 #### [facility] [place] [id number] [address] [place] [address] [place] RBC LM.HPF (Urine sed) [#/Area] 0-3 /HPF Normal 0-3 /HPF [facility] Comment on above: Order Comment: Speci men Type: URINE SPECIMEN Ordering Facility: [facility] Address: [address] [place] [address] Performed By: #### 2 4356-8 #### [facility] [place] [id number] [address] [place] [address] [place] Specific gravity (U) [Rel density] 1.008 Normal 1.005-1.03 0 [facility] Comment on above: Order Comment: Speci men Type: URINE SPECIMEN Ordering Facility: [facility] Address: [address] [place] [address] Performed By: #### 2 4356-8 #### [facility] [place] [id number] [address] [place] Urobilinogen Ql (U) 0.2 EU/dL Normal 0.2-1.0 EU/dL [facility] Comment on above: Order Comment: Speci men Type: URINE SPECIMEN Ordering Facility: [facility] Address: [address] [place] [address] Performed By: #### 2 4356-8 #### [facility] [place] [id number] [address] [place] [address] [place] WBC LM.HPF (Urine sed) [#/Area] 0-5 /HPF Normal 0-5 /HPF [facility] Comment on above: Order Comment: Speci men Type: URINE SPECIMEN Ordering Facility: [facility] Address: [address] [place] [address] Performed By: #### 2 4356-8 #### [facility] [place] [id number] [address] [place] [address] [place] 25(OH)D3 [facility] 2021 25-hydroxyvitamin D3 [Mass/Vol] 26.6 ng/mL Low 31.0-80.0 [facility] Comment on above: Order Comment: Speci men Type: BLOOD SPECIMENOrdering Facility: [facility] Address: [address] [place] [address] Result Comment: Clas sification of 25 [place] Vitamin D status: Deficiency/Insufficiency: < or = 30 ng/ml. Sufficiency/Optimal Levels: 31-80 ng/mL Toxicity: > 100 ng/mL. Test performed by chemiluminescent immunoassay. Performed By: #### 1 989-3, 70120-0, 2333-3 ####[facility]IA [id number] [id number] [address] [place] CBC W Auto Differential pane l (Bld)on 06-16-2022 Basophils (Bld) [#/Vol] 0.05 10*3/uL Normal <0.11 [facility] Comment on above: Order Comment: Speci men Type: BLOOD SPECIMENOrdering Facility: [facility] Address: [address] [place] [address] Performed By: #### 5 7021-8 ####[facility] [id number] [place] [address] [place] Basophils/100 WBC (Bld) 1.0 % Normal [facility] Comment on above: Order Comment: Speci men Type: BLOOD SPECIMENOrdering Facility: [facility] Address: [address] [place] [address] Performed By: #### 5 7021-8 ####[facility] [id number] [address] [place] Differential cell count method Nom (Bld) Auto Normal [facility] Comment on above: Order Comment: Speci men Type: BLOOD SPECIMENOrdering Facility: [facility] Address: [address] [address] Performed By: #### 5 7021-8 ####[facility] [id number] [place] [address] [place] Eosinophils (Bld) [#/Vol] 0.08 10*3/uL Normal <0.46 [facility] Comment on above: Order Comment: Speci men Type: BLOOD SPECIMENOrdering Facility: [facility] Address: [address] [address] Performed By: #### 5 7021-8 ####[facility]ORY[facility]IA [id number] [facility] [place] [address] [place] Eosinophils/100 WBC (Bld) 1.6 % Normal [facility] Comment on above: Order Comment: Speci men Type: BLOOD SPECIMENOrdering Facility: [facility] Address: [address] [place] [address] Performed By: #### 5 7021-8 ####[facility]ORY[facility]IA [id number] [address] [place] Erythrocyte distribution width (RBC) [Ratio] 14.5 % Normal 11.5-15.0 [facility] Comment on above: Order Comment: Speci men Type: BLOOD SPECIMENOrdering Facility: [facility] Address: [address] [place] [address] Performed By: #### 5 7021-8 ####[facility] [id number] [address] [place] Hematocrit (Bld) [Volume fraction] 29.9 % Low 36.0-46.0 [facility] Comment on above: Order Comment: Speci men Type: BLOOD SPECIMENOrdering Facility: [facility] Address: [address] [place] [address] Performed By: #### 5 7021-8 ####[facility] [id number] [place] [address] [place] Hemoglobin (Bld) [Mass/Vol] 9.5 g/dL Low 11.5-15.5 [facility] Comment on above: Order Comment: Speci men Type: BLOOD SPECIMENOrdering Facility: [facility] Address: [address] [place] [address] Performed By: #### 5 7021-8 ####[facility] [id number] [place] [address] [place] IMMATURE GRAN % 0.2 % Normal [facility] Comment on above: Order Comment: Speci men Type: BLOOD SPECIMENOrdering Facility: [facility] Address: [address] [place], [place] [address] Performed By: #### 5 7021-8 ####[facility] [id number] [place] [address] [place] IMMATURE GRAN ABS <0.03 Normal <0.10 [facility] Comment on above: Order Comment: Speci men Type: BLOOD SPECIMENOrdering Facility: [facility] Address: [address] [place], [place] [address] Performed By: #### 5 7021-8 ####[facility] [id number] [address] [place] Lymphocytes (Bld) [#/Vol] 1.95 10*3/uL Normal 1.00-4.00 [facility] Comment on above: Order Comment: Speci men Type: BLOOD SPECIMENOrdering Facility: [facility] Address: [address] [place] [address] Performed By: #### 5 7021-8 ####[facility]IA [id number] [address] STATES [facility] Lymphocytes/100 WBC (Bld) 38.8 % Normal [facility] Comment on above: Order Comment: Speci men Type: BLOOD SPECIMENOrdering Facility: [facility] Address: [address] [place], [place] [address] Performed By: #### 5 7021-8 ####[facility]IA [id number] [facility] [place] MCH (RBC) [Entitic mass] 28.4 pg Normal 26.0-34.0 [facility] Comment on above: Order Comment: Speci men Type: BLOOD SPECIMENOrdering Facility: [facility] Address: [address] [place], [place] [address] Performed By: #### 5 7021-8 ####[facility]ORYIA [id number] [place] [id number] [place] MCHC (RBC) [Mass/Vol] 31.8 g/dL Normal 30.5-36.0 [facility] Comment on above: Order Comment: Speci men Type: BLOOD SPECIMENOrdering Facility: [facility] Address: [address] [place], [place] [address] Performed By: #### 5 7021-8 ####[facility]ORYCLIA [id number] [facility] [place] [address] [place] MCV (RBC) [Entitic vol] 89.5 fL Normal 80.0-100.0 [facility] Comment on above: Order Comment: Speci men Type: BLOOD SPECIMENOrdering Facility: [facility] Address: [address] [place], [place] [address] Performed By: #### 5 7021-8 ####[facility] [id number] [place] [address] [place] Monocytes (Bld) [#/Vol] 0.37 10*3/uL Normal <0.87 [facility] Comment on above: Order Comment: Speci men Type: BLOOD SPECIMENOrdering Facility: [facility] Address: [address] [place], [place] [address] Performed By: #### 5 7021-8 ####[facility] [id number] [address] [place] Monocytes/100 WBC (Bld) 7.4 % Normal [facility] Comment on above: Order Comment: Speci men Type: BLOOD SPECIMENOrdering Facility: [facility] Address: [address] [place], [place] [address] Performed By: #### 5 7021-8 ####[facility]ORYCLIA [id number] [place] [address] [place] Neutrophils (Bld) [#/Vol] 2.56 10*3/uL Normal 1.45-7.50 [facility] Comment on above: Order Comment: Speci men Type: BLOOD SPECIMENOrdering Facility: [facility] Address: [address] [place], [place] [address] Performed By: #### 5 7021-8 ####[facility] SACRAMENTOIA [id number] [facility] [place] [address] [place] Neutrophils/100 WBC (Bld) 51.0 % Normal [facility] Comment on above: Order Comment: Speci men Type: BLOOD SPECIMENOrdering Facility: [facility] Address: [address] [place], [place] [address] Performed By: #### 5 7021-8 ####[facility]ORYIA [id number] [place] [address] [place] Nucleated RBC (Bld) [#/Vol] 10*3/uL Normal <0.01 [facility] Comment on above: Order Comment: Speci men Type: BLOOD SPECIMENOrdering Facility: [facility] Address: [address] [place] [address] Performed By: #### 5 7021-8 ####[facility] [id number] [place] [address] [place] Nucleated RBC/100 WBC (Bld) [Ratio] 0.0 /100 WBC Normal [facility] Comment on above: Order Comment: Speci men Type: BLOOD SPECIMENOrdering Facility: [facility] Address: [address] [place], [place] [address] Performed By: #### 5 7021-8 ####[facility]ENTERIA [id number] [place] [address] [place] Platelet mean volume (Bld) [Entitic vol] 10.1 fL Normal 9.0-12.7 [facility] l Comment on above: Order Comment: Speci men Type: BLOOD SPECIMENOrdering Facility: [facility] Address: [address] [place], [place] [address] Performed By: #### 5 7021-8 ####[facility] [id number] [place] [address] [place] Platelets (Bld) [#/Vol] 268 10*3/uL Normal 150-400 [facility] Comment on above: Order Comment: Speci men Type: BLOOD SPECIMENOrdering Facility: [facility] Address: [address] [place], [place] [address] Performed By: #### 5 7021-8 ####[facility]IA [id number] [address] OF [facility] RBC (Bld) [#/Vol] 3.34 10*6/uL Low 3.90-5.20 [facility] Comment on above: Order Comment: Speci men Type: BLOOD SPECIMENOrdering Facility: [facility] Address: [address] [place] [address] Performed By: #### 5 7021-8 ####[facility]ENTERIA [id number] [place] [id number] [facility] [place] WBC (Bld) [#/Vol] 5.02 10*3/uL Normal 3.70-11.00 [facility] Comment on above: Order Comment: Speci men Type: BLOOD SPECIMENOrdering Facility: [facility] Address: [address] [place] [address] Performed By: #### 5 7021-8 ####[facility]ENTERIA [id number] [address] [place] CT ABD/PEL W IVCONon 06-16- 022 CT ABD/PEL W IVCON * * *Final Report* * * DATE OF EXAM: Jun 16 2022 1:40PM [facility] 0530 - CT ABD/PEL W IVCON / PROCEDURE REASON: Abdominal abscess/infection suspected * * * * Physician Interpretation * * * * EXAMINATION: CT ABDOMEN AND PELVIS WITH IV CONTRAST CLINICAL HISTORY: Right upper quadrant pain TECHNIQUE: CT of the abdomen and pelvis was performed using standard technique, scanning from just above the dome of the diaphragm to the symphysis pubis. MQ: CTAP_3 Contrast: IV: 100 ml of Omnipaque 350 Oral: 150 ml of Omni 350 10-25ml diluted with water CT Radiation dose: Integrated Dose-length product (DLP) for this visit = 679 mGy*cm. CT Dose Reduction Employed: Automated exposure control(AEC) and iterative recon COMPARISON: CT 04/08/2022. RESULT: Liver: No mass. Biliary: Common bile duct measures up to 0.7 cm with mild intrahepatic biliary ductal dilatation. The gallbladder is surgically absent. Spleen: Unchanged low density lesion within the spleen measuring up to 1.3 cm could reflect a benign angiomatous lesion. No splenomegaly. Pancreas: No mass or duct dilation. Adrenals: No mass. Kidneys: Subcentimeter low density lesions within the left kidney that are too small to characterize. No collecting system dilatation. GI tract: No dilation or wall thickening. Postop changes from gastric Gelacio-en-Y surgery. Lymph nodes: No abdominal or pelvic lymphadenopathy. Mesentery/Peritoneum: No ascites or mass. Vasculature: - Abdominal aorta and iliac arteries: No aneurysm. - Celiac and SMA: Patent without stenosis. - Portal venous system (SMV, splenic vein, portal vein and branches): Patent. - Hepatic veins: Patent. Pelvis: No mass, ascites or fluid collection. Bones/Soft Tissues: Degenerative changes. Lower thorax: Unchanged solid lung nodule within the right middle lobe measuring 0.5 x 0.2 cm (series 2 image 2) Plastic Boat Patcher (topogram) images: No additional findings. IMPRESSION: No acute findings within the abdomen and pelvis. 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 Consider correlation with laboratory values. Billing Assistant: ZACHERY Transcribe Date/Time: Jun 16 2022 1:49P Dictated by : ROSALIND WESTON MD This examination was interpreted and the report reviewed and electronically signed by: ROSALIND WESTON MD on Jun 16 2022 1:56PM EST [id number] Normal [facility] Comprehensive metabolic 2000 panelon 06-16-2022 Albumin [Mass/Vol] 3.9 g/dL Normal 3.9-4.9 [facility] Comment on above: Order Comment: Speci men Type: BLOOD SPECIMENOrdering Facility: [facility] Address: [address] [place] [address] Performed By: #### 5 0190-8, 2276-4, 08950-0, 3040-3, 29922-5, 91962-7 ####[facility]ATORYCLIA [id number] [facility] [place] [address] [facility] ALP [Catalytic activity/Vol] 82 U/L Normal 34-123 [facility] Comment on above: Order Comment: Speci men Type: BLOOD SPECIMENOrdering Facility: [facility] Address: [address] [place] [address] Performed By: #### 5 0190-8, 2276-4, 57131-9, 3040-3, 73861-0, 35471-3 ####[facility]ENTERIA [id number] [place] [address] [place] ALT [Catalytic activity/Vol] 21 U/L Normal 7-38 [facility] Comment on above: Order Comment: Speci men Type: BLOOD SPECIMENOrdering Facility: [facility] Address: [address] [place] [address] Performed By: #### 5 0190-8, 2276-4, 35119-8, 3040-3, 88486-0, 76506-3 ####[facility] SACRAMENTOCLIA [id number] [place] [id number] [place] OF [facility] Anion gap [Moles/Vol] 11 mmol/L Normal 9-18 [facility] Comment on above: Order Comment: Speci men Type: BLOOD SPECIMENOrdering Facility: [facility] Address: [address] [place] [address] Performed By: #### 5 0190-8, 2276-4, 85807-5, 3040-3, 77987-0, 91871-5 ####[facility] SACRAMENTOCLIA [id number] [place] [address] [place] AST [Catalytic activity/Vol] 26 U/L Normal 13-35 [facility] Comment on above: Order Comment: Speci men Type: BLOOD SPECIMENOrdering Facility: [facility] Address: [address] [place] [address] Performed By: #### 5 0190-8, 2276-4, 80954-6, 3040-3, 65557-8, 85319-6 ####[facility]ATORYIA [id number] [facility] [place] [address] [place] Bilirubin [Mass/Vol] 0.3 mg/dL Normal 0.2-1.3 [facility] Comment on above: Order Comment: Speci men Type: BLOOD SPECIMENOrdering Facility: [facility] Address: [address] [place], [place] [address] Performed By: #### 5 0190-8, 2276-4, 65003-9, 3040-3, 76660-3, 91897-4 ####[facility] CENTERIA [id number] [place] [address] [place] Calcium [Mass/Vol] 8.9 mg/dL Normal 8.5-10.2 [facility] Comment on above: Order Comment: Speci men Type: BLOOD SPECIMENOrdering Facility: [facility] Address: [address] [place] [address] Performed By: #### 5 0190-8, 2276-4, 39202-4, 3040-3, 02987-7, 91990-8 ####[facility] CENTERIA [id number] [place] [address] [place] Chloride [Moles/Vol] 107 mmol/L High 97-105 [facility] Comment on above: Order Comment: Speci men Type: BLOOD SPECIMENOrdering Facility: [facility] Address: [address] [place] [address] Performed By: #### 5 0190-8, 2276-4, 92902-6, 3040-3, 03800-4, 84009-6 ####[facility]ATORYIA [id number] [facility] [place] [address] [place] CO2 [Moles/Vol] 25 mmol/L Normal 22-30 [facility] Comment on above: Order Comment: Speci men Type: BLOOD SPECIMENOrdering Facility: [facility] Address: [address] [place] [address] Performed By: #### 5 0190-8, 2276-4, 72658-5, 3040-3, 48507-7, 91208-9 ####[facility]ORATORYCLIA [id number] [facility] [place] [address] [place] Creatinine [Mass/Vol] 0.53 mg/dL Low 0.58-0.96 [facility] Comment on above: Order Comment: Speci [facility] Type: BLOOD SPECIMENOrdering Facility: [facility] Address: [address] [place], [place] [address] Performed By: #### 5 0190-8, 2276-4, 30902-1, 3040-3, 79560-9, 65056-0 ####[facility] CENTERIA [id number] [place] [address] [place] ESTIMATED GLOMERULAR FILTRATION RATE 116 mL/min/1.73m??? Normal >=60 [facility] Comment on above: Order Comment: [facility] Type: BLOOD SPECIMENOrdering Facility: [facility] Address: [address] [place] [address] Result Comment: Randy mated Glomerular Filtration Rate (eGFR) is calculated using the 2020 CKD-EPI creatinine equation. This equation utilizes serum creatinine, sex, and age as parameters. The creatinine assay has traceable calibration to isotope dilution-mass spectrometry. Refer to KDIGO guidelines for clinical interpretation. In patients with unstable renal function, e.g. those with acute kidney injury, the eGFR may not accurately reflect actual GFR. Performed By: #### 5 0190-8, 2276-4, 02079-0, 3040-3, 84833-4, 61214-3 ####[facility]ORYIA [id number] [facility] [place] [address] [place] Glucose [Mass/Vol] 86 mg/dL Normal 74-99 [facility] Comment on above: Order Comment: Speci [facility] Type: BLOOD SPECIMENOrdering Facility: [facility] Address: [address] [place], [place] [address] Result Comment: The [place] [employer] (ADA) provides guidance for cutoff values for fasting glucose and random glucose. The ADA defines fasting as no caloric intake for at least 8 hours. Fasting plasma glucose results between 100 to 125 mg/dL indicate increased risk for diabetes (prediabetes). Fasting plasma glucose results greater than or equal to 126 mg/dL meet the criteria for diagnosis of diabetes. In the absence of unequivocal hyperglycemia, results should be confirmed by repeat testing. In a patient with classic symptoms of hyperglycemia or hyperglycemic crisis, random plasma glucose results greater than or equal to 200 mg/dL meet the criteria for diagnosis of diabetes. Reference: Standards of Medical Care in Diabetes 2016, [place] [employer]. Diabetes Care. 2016.39(Suppl 1). Performed By: #### 5 0190-8, 2276-4, 03410-2, 3040-3, 38928-1, 81250-8 ####[facility] LABORATORYCLIA [id number] [place] [address] [place] Potassium [Moles/Vol] 3.9 mmol/L Normal 3.7-5.1 [facility] Comment on above: Order Comment: [facility] Type: BLOOD SPECIMENOrdering Facility: [facility] Address: [address] [place] [address] Performed By: #### 5 0190-8, 2276-4, 27835-7, 3040-3, 56766-7, 08500-4 ####[facility] [id number] [place] [address] [place] Protein [Mass/Vol] 6.1 g/dL Low 6.3-8.0 [facility] Comment on above: Order Comment: Sharoni men Type: BLOOD SPECIMENOrdering Facility: [facility] Address: [address] [place] [address] Performed By: #### 5 0190-8, 2276-4, 15809-7, 3040-3, 43523-7, 72850-7 ####[facility] [id number] [place] [address] [place] Sodium [Moles/Vol] 143 mmol/L Normal 136-144 [facility] Comment on above: Order Comment: Speci men Type: BLOOD SPECIMENOrdering Facility: [facility] Address: [address] [place] [address] Performed By: #### 5 0190-8, 2276-4, 65672-4, 3040-3, 88755-0, 35849-3 ####[facility] [id number] [place] [address] [facility] Urea nitrogen [Mass/Vol] 8 mg/dL Normal 7-21 [facility] Comment on above: Order Comment: Speci men Type: BLOOD SPECIMENOrdering Facility: [facility] Address: [address] [place] [address] Performed By: #### 5 0190-8, 2276-4, 87924-6, 3040-3, 03815-5, 75219-2 ####[facility]ORATORYIA [id number] [place] [address] [facility] [place] ECG COMPLETEon 06-16-2022 ECG COMPLETE Ventricular Rate : 6 0 BPM Atrial Rate : 59 BPM P-R Interval : 179 ms QRS Duration : 93 ms Q-T Interval : 441 ms QTC Calculation(Bazett) : 441 ms Calculated P Inlet : 77 degrees Calculated R Inlet : 67 degrees Calculated T Inlet : 61 degrees Sinus rhythm Low voltage, precordial leads RSR' in V1 or V2, probably normal variant Otherwise Normal ECG no stemi 1123 Confirmed by CHRIS MAE MD (), social media editor DIMA RUTLEDGE (1941) on 06/16/2022 4:27:45 PM NAME : MELINA DÍAZ PID : [id number] : 1975 Gender : Female Race : ORD : [id number] Procedure Date : Jun 16 2022 11:22:08 Edit Date : Jun 16 2022 16:27:48 Diagnosis: Sinus rhythm Low voltage, precordial leads RSR' in V1 or V2, probably normal variant Otherwise Normal ECG no stemi 1123 Confirmed by CHRIS MAE MD (), social media editor DIMA RUTLEDGE (1941) on 06/16/2022 4:27:45 PM Test Reason : Chest Pain Location : 302 : ED AVED-16 Overread By : CHRIS MAE MD Edited By : DIMA RUTLEDGE Referred By : , Acquired by : [id number], [facility] ED NOTEon 06-16-2022 ED NOTE HNO ID: [id number] Author: Hamlet Covington RN Service: ? Author Type: Registered Nurse Type: ED Notes Filed: 06/16/2022 4:07 PM Note Text: The patient was taken to [address] by cart. [facility] ED NOTE HNO ID: [id number] Author: Hamlet Covington RN Service: ? Author Type: Registered Nurse Type: ED Notes Filed: 06/16/2022 4:01 PM Note Text: Report was given to Hannah Irizarry on [address]. [facility] ED NOTE HNO ID: [id number] Author: Hamlet Covington RN Service: ? Author Type: Registered Nurse Type: ED Notes Filed: 06/16/2022 2:56 PM Note Text: Report was given to Darline Charlton on [address]. [facility] ED NOTE HNO ID: [id number] Author: Alexandra Hernandez, Medic Service: ? Author Type: Concrete Craftsman and Intelligence Operations Specialist Type: ED Notes Filed: 06/16/2022 10:24 AM Note Text: Patient being treated for a ulcer. Has PICC line in right upper arm [facility] ED PROV NOTEon 06-16-2022 ED PROV NOTE HNO ID: [id number] Author: Chris Mae MD Service: Emergency Medicine Author Type: Physician Type: ED Provider Notes Filed: 06/16/2022 2:56 PM Note Text: ED Provider Note Patient Name: Melina Díaz : 1975 SERVICE DATE: 06/16/22 History Patient presents with: Abdominal Pain: Abd pain V/D for a week. Melina Díaz is a 46 year old female with hx of ovarian cyst, obesity, gastric bypass in December 2021 complicated by ulcer that presented to the ED for nominal pain, nausea vomiting and syncopal episode. Symptoms present for a week and worsening. Has severe pain in the epigastric region, radiates to the right upper quadrant. Does not move otherwise. Not improved with home medications. Has had nausea with very poor solid or liquid intake over the last week and vomits anytime she tries to eat or drink. States he has a known stricture in her stomach. She was seen in the GI clinic today who ordered outpatient CT scan and discharged her home. On the way back to the car her pain worsened and she doubled over and passed out. No trauma from the fall. She does have an indwelling PICC line and gets fluids and a banana bag once weekly. Also endorses diarrhea beginning today. No urinary symptoms. No chest pain or shortness of breath. Has chills but no fevers. Compliant with medications. Denies drugs. Has had a hysterectomy. History provided by: Patient paraprofessional interpreter used: No PAST MEDICAL HISTORY Diagnosis Date Breast mass 11/04/07 Right, biopsy benign Encounter for cosmetic surgery Endometriosis Excess skin of arm Fracture , ankle Localized adiposity Morbid obesity (HCC) Ovarian cyst induced hypertension Thyroid disorder PAST SURGICAL HISTORY Procedure Laterality Date ASSIST ONLY x3 LAPAROSCOPY SURG CHOLECYSTECTOMY 2004 Cholecystectomy, lap PAST SURGICAL HISTORY OF 10/28/2011 gastric sleeve PAST SURGICAL HISTORY OF 2011 excision of goiter PAST SURGICAL HISTORY OF thyroid mass removed TOTAL ABDOMINAL HYSTERECT W/WO RMVL TUBE OVARY 05/01/2010-05/2011 Hysterectomy, partial uterus then completion FAMILY HISTORY Problem Relation Age of Onset Thyroid Other 1st cousin - ? Grave's COPD Mother Hypertension Mother other (hypoglycemia) Mother Emphysema Father Coronary Artery Disease Father Ischemic Heart Disease Father 58 s/p stents Hypertension Father Asthma Sister 1/2 sister with female cysts other (unkown) Sister BiPolar-Bulemia None Brother 1/2--unkown Social History Tobacco Use Smoking status: Never Smokeless tobacco: Never Vaping Use Vaping Use: Never used Substance and Sexual Activity Alcohol use: Yes Drug use: No Sexual activity: Not on file ALLERGIES Allergen Reactions Adhesive Tape (Serina* Rash, Swelling, Itching Toradol [Ketorolac * Hives, Swelling Review of Systems Constitutional: Negative for activity change, appetite change, chills, fatigue and fever. HENT: Negative for rhinorrhea and sore throat. Eyes: Negative for pain and visual disturbance. Respiratory: Negative for cough and shortness of breath.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 [Entitic vol] 8.4 fL 6.3-10.7 [facility] Platelets Auto (Bld) [#/Vol] Ordered By: Ashwin Macias on 05-01-2022 Platelets (Bld) [#/Vol] 221 10*3/uL 150-450 [facility] Protein [Mass/volume] in Ser um or PlasmaOrdered By: Ashwin Macias on 05-01-2022 Protein [Mass/Vol] 5.3 g/dL 6.1-7.9 [facility] RBC Auto (Bld) [#/Vol]Ordere d By: Ashwin Macias on 05-01-2022 RBC (Bld) [#/Vol] 3.78 10*6/uL 3.60-5.00 [facility] Serum or plasma alanine velazco otransferase measurement without P-5'-P (enzymatic activiOrdered By: Ashwin Macias on 05-01-2022 ALT No additional P-5'-P [Catalytic activity/Vol] 11 U/L 10-60 [facility] Serum or plasma albumin/glob ulin mass ratioOrdered By: Ashwin Macias on 05-01-2022 Albumin/Globulin [Mass ratio] 1.3 {ratio} [facility] Serum or plasma alkaline teodora sphatase measurement (enzymatic activity/volume)Ordered By: Ashwin Macias on 05-01-2022 ALP [Catalytic activity/Vol] 61 U/L 32-92 [facility] Serum or plasma aspartate am inotransferase measurement (enzymatic activity/volume)Ordered By: Ashwin Macias on 05-01-2022 AST [Catalytic activity/Vol] 20 U/L 10-42 [facility] Serum or plasma calcium meagan urement (mass/volume)Ordered By: Ashwin Macias on 05-01-2022 Calcium [Mass/Vol] 8.8 mg/dL 8.2-10.2 [facility] Serum or plasma chloride mando surement (moles/volume)Ordered By: Ashwin Macias on 05-01-2022 Chloride [Moles/Vol] 104 mmol/L 95-114 [facility] Serum or plasma glucose meagan urement (mass/volume)Ordered By: Ashwin Macias on 05-01-2022 Glucose [Mass/Vol] 86 mg/dL 70-100 [facility] Comment on above: ADA recommended refe rence range Random Glucose Reference Range is dependent on time and content of last meal. Glucose of more than 200 mg/dL in a nonstressed, ambulatory subject supports the diagnosis of Diabetes Mellitus. Serum or plasma potassium me asurement (moles/volume)Ordered By: Ashwin Macias on 05-01-2022 Potassium [Moles/Vol] 3.8 mmol/L 3.5-5.1 [facility] Serum or plasma sodium measu rement (moles/volume)Ordered By: Ashwin Macias on 05-01-2022 Sodium [Moles/Vol] 139 mmol/L 136-146 [facility] Serum or plasma total biliru bin measurement (mass/volume)Ordered By: Ashwin Macias on 05-01-2022 Bilirubin [Mass/Vol] 0.4 mg/dL 0.3-1.2 [facility] Serum or plasma total carbon dioxide measurement (moles/volume)Ordered By: Ashwin Macias on 05-01-2022 CO2 [Moles/Vol] 28.3 mmol/L 22.0-30.0 [facility] Serum or plasma urea nitroge n measurement (mass/volume)Ordered By: Ashwin Macias on 05-01-2022 Urea nitrogen [Mass/Vol] 3 mg/dL 9- [facility] Urine culture routineOrdered By: Marc Nguyễn on 05-01-2022 Bacteria identified Cx Nom (U) 2 Days [facility] Laboratory - Chemistry and C hemistry - challengeOrdered By: Ashwin Macias on 04-30-2022 Lipase [Catalytic activity/Vol] 21.0 U/L 22-51 [facility] Magnesium [Mass/Vol] 1.7 mg/dL 1.6-2.6 [facility] Phosphate [Mass/volume] in S krystyna or PlasmaOrdered By: Ashwin Macias on 04-30-2022 Phosphate [Mass/Vol] 4.5 mg/dL 2.5-4.6 [facility] Amphetamine Screen Ql (U)Ord ered By: Ashwin Macias on 04-29-2022 Amphetamines Ql (U) Negative Negative [facility] Automated erythrocytes count in urine sediment (number/area)Ordered By: Marc Nguyễn on 04-29-2022 RBC Auto (Urine sed) [#/Area] None seen [HPF] 0-4 [facility] Automated leukocytes count i n urine sediment (number/area)Ordered By: Marc Nguyễn on 04-29-2022 WBC Auto (Urine sed) [#/Area] 5-9 [HPF] 0-4 [facility] Barbiturates [Presence] in U rineOrdered By: Ashwin Macias on 04-29-2022 Barbiturates Ql (U) Negative Negative [facility] Benzodiazepines [Presence] i n UrineOrdered By: Ashwin Macias on 04-29-2022 Benzodiazepines Ql (U) Positive Negative [facility] Bilirubin Test strip Ql (U)O rdered By: Marc Nguyễn on 04-29-2022 Bilirubin Ql (U) Negative Negative [facility] COVID CepheidOrdered By: Guru Briseno on 04-29-2022 SARS-CoV-2 (COVID-19) Ab IA Ql Negative Negative [facility] Comment on above: This is a duplicate [employer] Xpert Xpress CoV-2/Flu/RSV Plus RNA by RT-PCR result to be used for statistical tracking purpose only. SARS-CoV-2 (COVID-19) RNA MEAGAN+probe Ql (Unsp spec) [facility] COVID-19 SOFIAOrdered By: Thomas Nguyễn on 04-29-2022 SARS-CoV+SARS-CoV-2 (COVID-19) Ag IA.rapid Ql (Resp) Negative Negative [facility] Comment on above: This is a duplicate Nicole SARS Antigen (RUSSELL) result to be used for statistical tracking purpose only. Cannabinoids [Presence] in U rine by Screen methodOrdered By: Ashwin Macias on 04-29-2022 Cannabinoids Screen Ql (U) Negative Negative [facility] Comment on above: These are unconfirme d results and should not be used for legal purposes. Drug Cut-Off Concentration: AMPH 1000 ng/mL SRINIVAS 200 ng/mL BEATA 200 ng/mL COCM 300 ng/mL OP 300 ng/mL PCP 25 ng/mL THC 20 ng/mL Color Auto (U)Ordered By: Thomas Nguyễn on 04-29-2022 Color (U) Yellow Yellow [facility] HCG ( test) IA.rapi d Ql (U)Ordered By: Marc Nguyễn on 04-29-2022 HCG ( test) Ql (U) Negative [facility] Ketones Auto test strip (U) [Mass/Vol]Ordered By: Marc Nguyễn on 04-29-2022 Ketones (U) [Mass/Vol] Negative Negative [facility] Laboratory - Drug toxicology Ordered By: Ashwin aMcias on 04-29-2022 Opiates Ql (U) Positive Negative [facility] Laboratory - UrinalysisOrder ed By: Marc Nguyễn on 04-29-2022 Hyaline casts LM Ql (Urine sed) 0-8 [LPF] 0-8 [facility] Nitrite Test strip Ql (U)Ord ered By: Marc Nguyễn on 04-29-2022 Nitrite Ql (U) Negative Negative [facility] Phencyclidine Screen Ql (U)O rdered By: Ashwin Macias on 04-29-2022 Phencyclidine Ql (U) Negative Negative [facility] Protein Auto test strip (U) [Mass/Vol]Ordered By: Marc Nguyễn on 04-29-2022 Protein (U) [Mass/Vol] Negative Negative [facility] Specific gravity Auto test s trip (U) [Rel density]Ordered By: Marc Nguyễn on 04-29-2022 Specific gravity (U) [Rel density] > 1.050 1.001-1.03 0 [facility] Squamous epithelial cells de tection in urine sediment by light microscopyOrdered By: Marc Nguyễn on 04-29-2022 Epithelial cells.squamous LM Ql (Urine sed) 5-9 [HPF] 0-2 [facility] Urine bacteria detection by automated methodOrdered By: Marc Nguyễn on 04-29-2022 Bacteria Auto Ql (U) Rare None Seen [facility] Urine clarity by refractomet ry automatedOrdered By: Marc Nguyễn on 04-29-2022 Clarity Refractometry automated (U) Clear Clear [facility] Urine cocaine detectionOrder ed By: Ashwin Macias on 04-29-2022 Cocaine Ql (U) Negative Negative [facility] Urine glucose measurement by automated test strip (mass/volume)Ordered By: Marc Nguyễn on 04-29-2022 Glucose Auto test strip (U) [Mass/Vol] Normal mg/dL Normal [facility] Urine hemoglobin detection b y automated test stripOrdered By: Marc Nguyễn on 04-29-2022 Hemoglobin Auto test strip Ql (U) Negative Negative [facility] Urine leukocyte esterase det ection by automated test stripOrdered By: Marc Nguyễn on 04-29-2022 Leukocyte esterase Auto test strip Ql (U) 2+ Negative [facility] Urobilinogen Auto test strip (U) [Mass/Vol]Ordered By: Marc Nguyễn on 04-29-2022 Urobilinogen (U) [Mass/Vol] Normal mg/dL Normal [facility] pH Auto test strip (U)Ordere d By: Marc Nguyễn on 04-29-2022 pH (U) 6.0 [pH] 5.0-9.0 [facility] Discharge [id number] Discharge Profile2 Discharge Orders: Anticipated Discharge Date: Anticipated Discharge [id number] Anticipated Discharge Time10:36 DNAR: Code Status at Discharge: Full Code Additional Orders: Additional Instructions Activity instructions: - No lifting, pulling, or pushing objects greater than 15 pounds for 4 weeks. - Activity otherwise as tolerated. - You may shower. Soap and water may run over your incisions. Pat dry. No submerging in baths or swimming (activities that keep your incisions underwater) for at least two weeks. - You may not drive while taking narcotics. Diet: - You will go home on a full liquid diet (similar to the diet you were on your final day in the hospital) - You will stay on this full liquid diet for two weeks. Acceptable full liquids include protein shakes, sugar free jello, sugar free pudding, and creamy soups (no chunks). You will continue to drink clear liquids including water and crystal light. You should aim for 64 ounces of fluid per day, with about half of this being full liquids and half of this being clear liquids. Do not exceed 8 oz per hour. - After two weeks, you should have a discussion with the electrical worker about progressing to a combination of full liquid and pureed foods. - Take fiber daily - For further information, follow the diet instructions listed in your bariatric surgery instruction packet. Medications: - Medications should be crushed and mixed with full liquids. Capsules may be opened and mixed with full liquids. - Extended release medications should not be taken. Please contact your primary care physician to convert extended release medications to immediate release form. - Take 650mg Tylenol (liquid preferred) every 6 hours for pain. Take between doses of your opioid pain medication. Try to limit the use of your opioid pain medication and only take as needed. - Slowly add your vitamins to your daily medication regimen as tolerated. You do not have to take them within the first few days after surgery if they are causing you nausea or other problems. - If you have medications that you still cannot tolerate by your first visit with your surgeon or dietitian, please discuss this. Call Provider If: - Breathing faster or harder than normal. - Fever of 100.4 F (38 C) or higher or feeling of chills. - Feeling very sleepy and difficult to awaken. - Inability to drink or significant decrease in ability to drink since discharge. - Vomiting (throwing up) and not able to eat or drink for 12 hours. - Urinating much less than your normal. - More than 4 loose, watery bowel movements in 24 hours (diarrhea). - Any new concerning symptoms. Hospital Course (Home Care/Gold Form): Hospital Course: Hospital Course: include significant abnormal lab values Patient presented to the ED with recurrent symptoms after recent endoscopic dilation of GJ stricture. She was admitted and provided IV protonix, dilaudid, zofran and PO carafate. Her symptoms improved with medications. She then underwent repeat dilation, with improvement in symptoms. She was started on BID PPI, continued on carafate. She was tolerating liquids prior to discharge. Provider FINAL REVIEW of Orders: Final Review: Final Review of Medication Reconciliation and Orders Completedby Physician Reviewing ProviderStyrone Weems MD at 25-Apr-2022 10:48:31 Electronic Signatures: Jonathan Weems) (Signed 25-Apr-2022 10:48) Authored: Discharge Orders, Hospital Course (Home Care/Gold Form), Provider FINAL REVIEW of Orders, Gold Form - Chorus Dancer Summary Last Updated: 25-Apr-2022 10:48 by Jonathan Weems) Normal [facility] Order Reconciliationon 04-25 Order Reconciliation Page 1 Discharge Reconciliation Document Reconciliation Type: Discharge requested on behalf of Jonathan Weems (Physician) done by Jonathan Weems) Discharge - Reconciliation: 12-Aug-2022 10:45 by: Jonathan Weems) Home Medications EnteredHOME MEDICATIONS AT DISCHARGE DateReconciliation Comment/ Additional Information ALPRAZolam 0.5 mg oral tablet 1 tab(s) orally once a day, As Needed - for anxiety 25-May-2021 00:44 ALPRAZolam 0.5 mg oral tablet 1 tab(s) orally once a day, As Needed - for anxiety 25-May-2021 00:44 ALPRAZolam 0.5 mg oral tablet is continued as ALPRAZolam 0.5 mg oral tablet cyanocobalamin 1000 mcg/mL injectable solution 1 milliliter(s) intramuscularly 2 times a week on and Saturdays 18:30 cyanocobalamin 1000 mcg/mL injectable solution 1 milliliter(s) intramuscularly 2 times a week on and Saturdays 18:30 cyanocobalamin 1000 mcg/mL injectable solution is continued as cyanocobalamin 1000 mcg/mL injectable solution dextroamphetamine-amphetam ine 20 mg oral tablet 1 tab(s) orally 2 times a day 23-Apr-2022 18:30 dextroamphetamine-amphetam ine 20 mg oral tablet 1 tab(s) orally 2 times a day 23-Apr-2022 18:30 dextroamphetamine-amphetam ine 20 mg oral tablet is continued as dextroamphetamine-amphetam ine 20 mg oral tablet diphenhydrAMINE 12.5 mg oral tablet, chewable 2 tab(s) orally every 6 hours, As Needed with oxycodone 23-Apr-2022 18:28 diphenhydrAMINE 12.5 mg oral tablet, chewable 2 tab(s) orally every 6 hours, As Needed with oxycodone 23-Apr-2022 18:28 diphenhydrAMINE 12.5 mg oral tablet, chewable is continued as diphenhydrAMINE 12.5 mg oral tablet, chewable famotidine 40 mg/5 mL oral suspension 5 milliliter(s) orally 2 times a day 23-Apr-2022 18:28 Discontinued; Discontinue from ORM famotidine 40 mg/5 mL oral suspension is not required levothyroxine 50 mcg (0.05 mg) oral tablet 1 tab(s) orally once a day (in the morning) 23-Apr-2022 18:29 levothyroxine 50 mcg (0.05 mg) oral tablet 1 tab(s) orally once a day (in the morning) 23-Apr-2022 18:29 levothyroxine 50 mcg (0.05 mg) oral tablet is continued as levothyroxine 50 mcg (0.05 mg) oral tablet omeprazole 2 mg/mL oral suspension 10 milliliter(s) orally 2 times a day 17-Apr-2022 14:43 Discontinued; Discontinue from ORM omeprazole 2 mg/mL oral suspension is not required ondansetron 8 mg oral tablet, disintegrating 1 tab(s) orally every 4 hours, As Needed - for nausea and vomiting 23-Apr-2022 18:30 ondansetron 8 mg oral tablet, disintegrating 1 tab(s) orally every 4 hours, As Needed -for nausea and vomiting - .Patient Location 25-Apr-2022 10:44 Discontinued; Copy/Discontinue Prescription is created for ondansetron 8 mg oral tablet, disintegrating oxyCODONE 5 mg/5 mL oral solution 5 milliliter(s) orally every 6 hours, As needed, pain 17-Apr-2022 14:43 oxyCODONE 5 mg/5 mL oral solution 5 milliliter(s) orally every 6 hours, As needed, pain 17-Apr-2022 14:43 Discontinued; Copy/Discontinue oxyCODONE 5 mg/5 mL oral solution is continued as oxyCODONE 5 mg/5 mL oral solution; Prescription is created for oxyCODONE 5 mg/5 mL oral solution promethazine 6.25 mg/5 mL oral syrup 10 milliliter(s) orally every 6 hours, As Needed - for nausea and vomiting 23-Apr-2022 18:26 promethazine 6.25 mg/5 mL oral syrup 10 milliliter(s) orally every 6 hours, As Needed - for nausea and vomiting 23-Apr-2022 18:26 promethazine 6.25 mg/5 mL oral syrup is continued as promethazine 6.25 mg/5 mL oral syrup sucralfate 1 g/10 mL oral suspension 10 milliliter(s) orally 4 times a day 17-Apr-2022 14:43 sucralfate 1 g/10 mL oral suspension 10 milliliter(s) orally 4 times a day 17-Apr-2022 14:43 Discontinued; Copy/Discontinue sucralfate 1 g/10 mL oral suspension is continued as sucralfate 1 g/10 mL oral suspension; Prescription is created for sucralfate 1 g/10 mL oral suspension Current OrdersDateHOME MEDICATIONS AT DISCHARGE DateReconciliation Comment/ Additional Information Acetaminophen Oral Liquid (TYLENOL)DOSE = 650 mg Oral Every 4 Hours, PRN Pain - Mild (1-3) 24-Apr-2022 06:22 Acetaminophen Oral Liquid is not required ALPRAZolam Tablet (XANAX)DOSE = 0.5 mg Oral At Bedtime, PRN Anxiety 23-Apr-2022 18:04 ALPRAZolam is not required diphenhydrAMINE Injectable (BENADRYL)DOSE = 25 mg IntraVenous Push Every 4 Hours, PRN Itching 23-Apr-2022 17:52 diphenhydrAMINE Injectable is not required Heparin SubCutaneous DOSE = 5,000 unit(s) SubCutaneous Every 8 HoursNotes from Pharmacy: Note Concentration Prior to Administration 23-Apr-2022 17:52 Heparin SubCutaneous is not required hydrALAZINE (APRESOLINE) Injectable DOSE = 5 mg IntraVenous Push Every 6 Hours, PRN SBP>160 23-Apr-2022 18:11 hydrALAZINE (APRESOLINE) Injectable is not required HYDROmorphone Injectable (DILAUDID)DOSE = 0.2 mg IntraVenous Push Every 4 Hours, PRN Pain - Mod (4-6) 23-Apr-2022 17:53 HYDROmorphon (more content not included)... Normal [facility] URINALYSIS WITH CULTURE IF I NDICATEDon 04-25-2022 Appearance (U) Canceled Normal [facility] Comment on above: Order Comment: TEST URINALYSIS WITH CULTURE IF INDICATED WAS CANCELLED, 04/25/2022 05:20 NOSPECIMEN RECEIVED IN LAB. Performed By: #### U ARFX ####[facility] [place] [address] ASCORBIC ACID Canceled Normal [facility] Comment on above: Order Comment: TEST URINALYSIS WITH CULTURE IF INDICATED WAS CANCELLED, 04/25/2022 05:20 NOSPECIMEN RECEIVED IN LAB. Result Comment: Conc entrations > = 20 mg/dL of ascorbic acid can be expected to cause strong interference in the reactions testing for glucose, nitrite and blood. It is recommended to discontinue Vitamin C administration and retest in 10 hours. Performed By: #### U ARFX ####[address] [address] Bilirubin Ql (U) Canceled Normal [facility] Comment on above: Order Comment: TEST URINALYSIS WITH CULTURE IF INDICATED WAS CANCELLED, 04/25/2022 05:20 NOSPECIMEN RECEIVED IN LAB. Performed By: #### U ARFX ####[address] [address] Color (U) Canceled Normal [facility] Comment on above: Order Comment: TEST URINALYSIS WITH CULTURE IF INDICATED WAS CANCELLED, 04/25/2022 05:20 NOSPECIMEN RECEIVED IN LAB. Performed By: #### U ARFX ####[address] [address] Glucose Ql (U) Canceled Normal [facility] Comment on above: Order Comment: TEST URINALYSIS WITH CULTURE IF INDICATED WAS CANCELLED, 04/25/2022 05:20 NOSPECIMEN RECEIVED IN LAB. Performed By: #### U ARFX ####[address] [place] [address] Hemoglobin Ql (U) Canceled Normal [facility] Comment on above: Order Comment: TEST URINALYSIS WITH CULTURE IF INDICATED WAS CANCELLED, 04/25/2022 05:20 NOSPECIMEN RECEIVED IN LAB. Performed By: #### U ARFX ####[address] [address] Ketones Ql (U) Canceled Normal [facility] Comment on above: Order Comment: TEST URINALYSIS WITH CULTURE IF INDICATED WAS CANCELLED, 04/25/2022 05:20 NOSPECIMEN RECEIVED IN LAB. Performed By: #### U ARFX ####[address] [address] Leukocyte esterase Test strip Ql (U) Canceled Normal [facility] Comment on above: Order Comment: TEST URINALYSIS WITH CULTURE IF INDICATED WAS CANCELLED, 04/25/2022 05:20 NOSPECIMEN RECEIVED IN LAB. Performed By: #### U ARFX ####[address] [address] Nitrite Ql (U) Canceled Normal [facility] Comment on above: Order Comment: TEST URINALYSIS WITH CULTURE IF INDICATED WAS CANCELLED, 04/25/2022 05:20 NOSPECIMEN RECEIVED IN LAB. Performed By: #### U ARFX ####[address] [address] pH Canceled Normal [facility] Comment on above: Order Comment: TEST URINALYSIS WITH CULTURE IF INDICATED WAS CANCELLED, 04/25/2022 05:20 NOSPECIMEN RECEIVED IN LAB. Performed By: #### U ARFX ####[address] [address] Protein Ql (U) Canceled Normal [facility] Comment on above: Order Comment: TEST URINALYSIS WITH CULTURE IF INDICATED WAS CANCELLED, 04/25/2022 05:20 NOSPECIMEN RECEIVED IN LAB. Performed By: #### U ARFX ####[address] [address] Specific gravity (U) [Rel density] Canceled Normal [facility] Comment on above: Order Comment: TEST URINALYSIS WITH CULTURE IF INDICATED WAS CANCELLED, 04/25/2022 05:20 NOSPECIMEN RECEIVED IN LAB. Performed By: #### U ARFX ####[address] [address] UROBILINOGEN Canceled Normal [facility] Comment on above: Order Comment: TEST URINALYSIS WITH CULTURE IF INDICATED WAS CANCELLED, 04/25/2022 05:20 NOSPECIMEN RECEIVED IN LAB. Performed By: #### U ARFX ####[address] [address] Daily Progress Note-Surgeryo n 04-24-2022 Daily Progress Note-Surgery Service: Surgery Subjective Data: MELINA DÍAZ is a 46 year old Female who is Hospital Day # 2. Overnight Events: Acute events in the past 24 hours include Additional Information: nausea, vomiting. Improvement in pain with dilaudid. Objective Data: Objective Information: T PRBPMAPSpO2 [id number]% Date/Time04/24 7: 7: 20: 7: 7: 7:20 Range(35.9C - 37C ) (49 - 64 ) (18 - 18 ) (106 - 137 )/ (59 - 80 ) (77 - 85 ) (97% - 100% ) Highest temp of 37 C was recorded at 04/23 21:45 Pain reported at 04/24 1:55: 8 = Severe Physical Exam Narrative Physical Exam: Physical Exam: General: Well developed, awake/alert/oriented x3, no distress, alert and cooperative Eyes: EOMI, clear sclera Head/Neck: Neck supple, no apparent injury, No JVD, trachea midline Respiratory/Thorax: good chest expansion, thorax symmetric Cardiovascular: Regular heart rate Abdominal: nondistended, soft, mild epigastric tenderness, no rebound tenderness or guarding, no masses palpable Musculoskeletal: ROM intact, no joint swelling Extremities: normal extremities, no cyanosis edema, contusions or wounds, no clubbing Neurological: alert and oriented x3, intact senses Psychological: Appropriate mood and behavior Skin: Warm and dry, no lesions, no rashes Recent Lab Results Results: CBC: 04/23/2022 16:55 \ Hgb / \ 11.6 L / WBC Plt 6.5 271 / Hct \ / 36.5 \ RBC: 4.04 MCV: 90 Neutrophil %: 52.9 CMP: 04/23/2022 16:55 NA+ Cl- BUN / 140 107 8 / ------ Glucose - 93 K+ HCO3- Creat \ 3.5 28 0.62 \ \ T Bili / \ 0.5 / AST x ---- x ALT 16 x ---- x 11 / Alk P \ / 66 \ Calcium : 8.6 Anion Gap : 9 L Albumin : 3.6 T Protein : 5.9 L Coagulation: 04/23/2022 16:55 PT / 12.7 / -------< INR < 1.1 PTT\ \ Assessment and Plan: Code Status Code StatusFull Code Assessment: 46 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 -dilation today -NPO, IVF -protonix, carafate -PRN dilaudid, PRN zofran -cont home medications Plan of Care Reviewed With Plan of Care Reviewed With: patient Electronic Signatures for Addendum Section: Brittany Bose) (Signed Addendum 24-Apr-2022 13:37) Seen , agree with note, A/P. Electronic Signatures: Jonathan Weems) (Signed 24-Apr-2022 08:10) Authored: Service, Assessment/Plan Review, Subjective Data, Objective Data, Assessment and Plan, Note Completion Last Updated: 24-Apr-2022 13:37 by Brittany Bose) Normal [facility] No Panel Informationon 04-24 [email or web address] [email or web address]?={ [email or web address]} DM-Bxkqnxs-Nb rma MAC2 303 Work Phone: TF-Hxjqriu-Tt rma MAC[address] 303 Work Phone: Upper GI endoscopyon 022 Upper GI endoscopy PATIENTNAME Patient Name: Melina Díaz EXAMDATE Procedure Date: 04/24/2022 1:01 PM PATIENTID PATIENTACCOUNTNUM PATIENTDOB Date of : 1975 ADMITTYPE Admit Type: Emergency Department PATIENTROOM Site: [facility] Endoscopy Room 1 ETHNICITY Ethnicity: Not or RACE Race: White PROVDR Attending MD: Brittany Bose MD ENDOPROCEDURENAME Procedure: Upper GI endoscopy INDICATION Indications: Epigastric abdominal pain, Post-bariatric anastomotic stenosis, Follow-up of post-bariatric anastomotic stenosis, For therapy of post-bariatric anastomotic stenosis, Nausea with vomiting, Status post Gelacio-en-Y PRIMARYPROVIDER Providers: Brittany Bose MD (Doctor), Aura King RN (Nurse) , Helena Parrish, Intelligence Operations Specialist EDREFPROVIDER Referring: Yg James MD CURRENT_MEDS Medicines: Monitored Anesthesia Care COMPLIC Complications: No immediate complications. ENDOPROCEDURETEXT Procedure: Pre-Anesthesia Assessment: - Prior to the procedure, a History and Physical was performed, and patient medications and allergies were reviewed. The patient's tolerance of previous anesthesia was also reviewed. The risks and benefits of the procedure and the sedation options and risks were discussed with the patient. All questions were answered, and informed consent was obtained. Prior Anticoagulants: The patient has taken no anticoagulant or antiplatelet agents. ASA Grade Assessment: II - A patient with mild systemic disease. After reviewing the risks and benefits, the patient was deemed in satisfactory condition to undergo the procedure. After obtaining informed consent, the endoscope was passed under direct vision. Throughout the procedure, the patient's blood pressure, pulse, and oxygen saturations were monitored continuously. The endoscope was introduced through the mouth, and advanced to the afferent and efferent jejunal loops. The upper GI endoscopy was accomplished without difficulty. The patient tolerated the procedure well. FINDING Findings: The Z-line was regular and was found 35 cm from the incisors. Evidence of a Gelacio-en-Y gastrojejunostomy was found. The gastrojejunal anastomosis was characterized by congestion, erythema, friable mucosa, mild stenosis and ulceration. This was traversed. The hcvkr-mh-yiukxnn limb was characterized by healthy appearing mucosa. A TTS dilator was passed through the scope. Dilation with a 12-13.5-15 mm balloon dilator was performed to 15 mm. The dilation site was examined following endoscope reinsertion and showed moderate improvement in luminal narrowing. Estimated blood loss was minimal. Exam of the jejunum was otherwise normal. EBL Estimated Blood Loss: Estimated blood loss was minimal. IMPRESS Impression: - Z-line regular, 35 cm from the incisors. - Gelacio-en-Y gastrojejunostomy with gastrojejunal anastomosis characterized by congestion, erythema, friable mucosa, ulceration and mild stenosis. Dilated. - No specimens collected. ENDORECOMMENDATION Recommendation: - Return patient to hospital [facility] for ongoing care. CPT_CODES Procedure Code(s): --- Professional --- 92378, Esophagogastroduodenoscopy , flexible, transoral; with dilation of gastric/duodenal stricture(s) (eg, balloon, bougie) ICD_CODES Diagnosis Code(s): --- Professional --- Z98.0, Intestinal bypass and anastomosis status R10.13, Epigastric pain K95.89, Other complications of other bariatric procedure R11.2, Nausea with vomiting, unspecified CODINGSTMT CPT copyright 2020 [employer]. All rights reserved. The codes documented in this report are preliminary and upon help desk associate review may be revised to meet current compliance requirements. ATTDRPART Attending Participation: I was present and participated during the entire procedure, including non-frost portions. SIGNATURENAME Brittany Bose MD SIGNATUREDATE 04/24/2022 1:55:16 PM SIGNATUREONFILEIND This report has been signed electronically. NUMADDENDA Number of Addenda: 0 INITIATEDON Note Initiated On: 04/24/2022 1:01 PM TOTPROCTIME Total Procedure Duration Time 0 hours 12 minutes 25 seconds Normal [facility] CBC AND DIFFERENTIALon 04-23 % AUTOMATED IMMATURE GRAN 0.3 % Normal 0.0 - 0.9 [facility] Comment on above: Result Comment: Yanni ture Granulocyte Count (IG) includes promyelocytes, myelocytes and metamyelocytes but does not include bands. Percent differential counts (%) should be interpreted in the context of the absolute cell counts (cells/L). Performed By: #### H H #### [facility] [address] [place] [address] Basophils (Bld) [#/Vol] 0.06 10*3/uL Normal 0.00 - 0.10 [facility] Comment on above: Performed By: #### H H #### [facility] [address] [place] [address] Basophils/100 WBC (Bld) 0.9 % Normal 0.0 - 2.0 [facility] Comment on above: Performed By: #### H H #### [address] [address] Eosinophils (Bld) [#/Vol] 0.14 10*3/uL Normal 0.00 - 0.70 [facility] Comment on above: Performed By: #### H H #### [address] [address] Eosinophils/100 WBC (Bld) 2.2 % Normal 0.0 - 6.0 [facility] Comment on above: Performed By: #### H H #### [address] [address] Erythrocyte distribution width (RBC) [Ratio] 15.1 % High 11.5 - 14.5 [facility] Comment on above: Performed By: #### H H #### [address] [address] Hematocrit (Bld) [Volume fraction] 36.5 % Normal 36.0 - 46.0 [facility] Comment on above: Performed By: #### H H #### [address] [address] Hemoglobin (Bld) [Mass/Vol] 11.6 g/dL Low 12.0 - 16.0 [facility] Comment on above: Performed By: #### H H #### [address] [address] Lymphocytes (Bld) [#/Vol] 2.21 10*3/uL Normal 1.20 - 4.80 [facility] Comment on above: Performed By: #### H H #### [address] [address] Lymphocytes/100 WBC (Bld) 34.0 % Normal 13.0 - 44.0 [facility] Comment on above: Performed By: #### H H #### [address] [address] MCHC (RBC) [Mass/Vol] 31.8 g/dL Low 32.0 - 36.0 [facility] Comment on above: Performed By: #### H H #### [address] [address] MCV (RBC) [Entitic vol] 90 fL Normal 80 - 100 [facility] Comment on above: Performed By: #### H H #### [facility] [address] [place] [address] Monocytes (Bld) [#/Vol] 0.63 10*3/uL Normal 0.10 - 1.00 [facility] Comment on above: Performed By: #### H H #### [facility] [address] [place] [address] Monocytes/100 WBC (Bld) 9.7 % Normal 2.0 - 10.0 [facility] Comment on above: Performed By: #### H H #### [facility] [address] [place] [address] Neutrophils (Bld) [#/Vol] 3.44 10*3/uL Normal 1.20 - 7.70 [facility] Comment on above: Performed By: #### H H #### [address] [place] [address] Neutrophils/100 WBC (Bld) 52.9 % Normal 40.0 - 80.0 [facility] Comment on above: Performed By: #### H H #### [facility] [address] [place], [place] [address] [place] [address] NUCLEATED RBC 0.0 /100 WBC Normal 0.0 - 0.0 [facility] Comment on above: Performed By: #### H H #### [address] [place] [address] Platelets (Bld) [#/Vol] 271 10*3/uL Normal 150 - 450 [facility] Comment on above: Performed By: #### H H #### [facility] [address] [place] [address] RBC 4.04 x10E12/L Normal 4.00 - 5.20 [facility] Comment on above: Performed By: #### H H #### [place] [address] [place] [address] WBC (Bld) [#/Vol] 6.5 10*3/uL Normal 4.4 - 11.3 [facility] Comment on above: Performed By: #### H H #### [address] [place] [address] COMPREHENSIVE PANELon 2021 Albumin [Mass/Vol] 3.6 g/dL Normal 3.4 - 5.0 [facility] Comment on above: Performed By: #### H H #### [facility] [address] [place] [address] ALP [Catalytic activity/Vol] 66 U/L Normal 33 - 110 [facility] Comment on above: Performed By: #### H H #### [address] [address] ALT [Catalytic activity/Vol] 11 U/L Normal 7 - 45 [facility] Comment on above: Result Comment: Donita ents treated with Sulfasalazine may generate falsely decreased results for ALT. Performed By: #### H H #### [address] [address] Anion gap [Moles/Vol] 9 mmol/L Low 10 - 20 [facility] Comment on above: Performed By: #### H H #### [address] [address] AST [Catalytic activity/Vol] 16 U/L Normal 9 - 39 [facility] Comment on above: Result Comment: MILD HEMOLYSIS DETECTED. The result may be falsely elevated due to hemolysis or other interferents. Clinical correlation is recommended. Repeat testing may be considered. Performed By: #### H H #### [address] [address] Bilirubin [Mass/Vol] 0.5 mg/dL Normal 0.0 - 1.2 [facility] Comment on above: Performed By: #### H H #### [address] [address] Calcium [Mass/Vol] 8.6 mg/dL Normal 8.6 - 10.3 [facility] Comment on above: Performed By: #### H H #### [address] [address] Chloride [Moles/Vol] 107 mmol/L Normal 98 - 107 [facility] Comment on above: Performed By: #### H H #### [address] [address] Creatinine [Mass/Vol] 0.62 mg/dL Normal 0.50 - 1.05 [facility] Comment on above: Performed By: #### H H #### [address] [address] eGFR FEMALE >90 Normal >90 [facility] Comment on above: Result Comment: CALC ULATIONS OF ESTIMATED GFR ARE PERFORMED USING THE 2020 CKD-EPI STUDY REFIT EQUATION WITHOUT THE RACE VARIABLE FOR THE IDMS-TRACEABLE CREATININE METHODS. https://jasn.asnjournals.org/content/early//ASN.588718 6342 Performed By: #### H H #### [address] [address] Glucose [Mass/Vol] 93 mg/dL Normal 74 - 99 [facility] Comment on above: Performed By: #### H H #### [address] [address] HCO3 (Bld) [Moles/Vol] 28 mmol/L Normal 21 - 32 [facility] Comment on above: Performed By: #### H H #### [address] [address] Potassium [Moles/Vol] 3.5 mmol/L Normal 3.5 - 5.3 [facility] Comment on above: Result Comment: MILD HEMOLYSIS DETECTED. The result may be falsely elevated due to hemolysis or other interferents. Clinical correlation is recommended. Repeat testing may be considered. Performed By: #### H H #### [address] [address] Protein [Mass/Vol] 5.9 g/dL Low 6.4 - 8.2 [facility] Comment on above: Performed By: #### H H #### [address] [address] Sodium [Moles/Vol] 140 mmol/L Normal 136 - 145 [facility] Comment on above: Performed By: #### H H #### [address] [address] Urea nitrogen [Mass/Vol] 8 mg/dL Normal 6 - 23 [facility] Comment on above: Performed By: #### H H #### [place] [address] CORONAVIRUS 2019 BY PCRon SARS-CoV-2 (COVID-19) RNA MEAGAN+probe Ql (Unsp spec) Not detected Normal Not Detected [facility] Comment on above: Result Comment: . This test has received FDA Emergency Use Authorization (EUA) and has been verified by [facility]. This test is only authorized for the duration of time that circumstances exist to justify the authorization of the emergency use of in vitro diagnostic tests for the detection of SARS-CoV-2 virus and/or diagnosis of COVID-19 infection under section 564(b)(1) of the Act, 21 U.S.C. 360bbb-3(b)(1), unless the authorization is terminated or revoked sooner. [facility] is certified under CLIA-88 as qualified to perform high complexity testing. Testing is performed in the [facility] laboratory located at [address] [place] [address]. SARS-CoV-2/Flu/RSV Multiplex Test: Fact sheet for providers: https://www.fda.gov/media/463198/download Fact sheet for patients: https://www.fda.gov/media/355387/download Performed By: #### C OV19 ####[place] [address] Lab Specimen Source Nasal, Nasopharyngeal Normal [facility] Comment on above: Performed By: #### C OV19 ####[place] [address] Clinical Intervention - Phar vik 04-23-2022 Clinical Intervention - Pharmacy Pharmacist's Clinical Intervention: Is this intervention medication reconciliation related: yes, HISTORY Time Required: 10-30 minutes Electronic Signatures: Jana Heaton ([employer]) (Signed 23-Apr-2022 18:32) Authored: Pharmacist's Clinical Intervention Last Updated: 23-Apr-2022 18:32 by Jana Heaton ([employer]) Normal [facility] Complete Blood Count + Diffe rentialon 04-23-2022 Basophils/100 WBC (Bld) 0.9 % 0.0 - 2.0 SM-Yvtoaeo-Je rma MAC2 [address] Work Phone: Erythrocyte distribution width (RBC) [Ratio] 15.1 % above high threshold See Below SJ-Rfegshk-Qk rma MAC2 [address] Work Phone: Comment on above: Reference Range: 11. 5 - 14.5 Hematocrit (Bld) [Volume fraction] 36.5 % See Below LL-Fukzspd-Wa rma MAC2 [address] Work Phone: Comment on above: Reference Range: 36. 0 - 46.0 Hemoglobin (Bld) [Mass/Vol] 11.6 g/dL below low threshold See Below LU-Pbbtmaf-Ol rma MAC2 [address] Work Phone: Comment on above: Reference Range: 12. 0 - 16.0 Lymphocytes/100 WBC (Bld) 34.0 % See Below EG-Pxmnkig-Sl rma MAC2 [address] Work Phone: Comment on above: Reference Range: 13. 0 - 44.0 MCHC (RBC) [Mass/Vol] 31.8 g/dL below low threshold See Below DC-Jarnlif-Yr rma MAC2 [address] Work Phone: Comment on above: Reference Range: 32. 0 - 36.0 MCV (RBC) [Entitic vol] 90 fL 80 - 100 NL-Hlgieco-Zl rma MAC2 303 Work Phone: Monocytes/100 WBC (Bld) 9.7 % 2.0 - 10.0 OJ-Lctiygf-Jw rma MAC2 [address] Work Phone: Neutrophils/100 WBC (Bld) 52.9 % See Below NF-Gkzxgkp-Yj rma MAC2 [address] Work Phone: Comment on above: Reference Range: 40. 0 - 80.0 Platelets (Bld) [#/Vol] 271 10*3/uL 150 - 450 XY-Vubkvgg-Fh rma MAC2 303 Work Phone: RBC (Bld) [#/Vol] 4.04 {x10E12/L} See Below MG -Surgery-Pa rma MAC2 303 Work Phone: Comment on above: Reference Range: 4.0 0 - 5.20 WBC (Bld) [#/Vol] 6.5 10*3/uL 4.4 - 11.3 MG-Amrit taye-Pa rma MAC2 303 Work Phone: Complete Blood Count + Differential 0.06 {x10E9/L} See Below MN-Phfhmov-Ks rma MAC2 303 Work Phone: Comment on above: Reference Range: 0.0 0 - 0.10 Complete Blood Count + Differential 0.14 {x10E9/L} See Below DL-Dpeolgz-Ts rma MAC2 303 Work Phone: Comment on above: Reference Range: 0.0 0 - 0.70 Complete Blood Count + Differential 0.63 {x10E9/L} See Below AL-Khfmbkh-Ri rma MAC2 303 Work Phone: Comment on above: Reference Range: 0.1 0 - 1.00 Complete Blood Count + Differential 2.21 {x10E9/L} See Below NX-Uicdqcc-Jo rma MAC2 303 Work Phone: Comment on above: Reference Range: 1.2 0 - 4.80 Complete Blood Count + Differential 3.44 {x10E9/L} See Below IX-Qobevqm-Lb rma MAC2 303 Work Phone: Comment on above: Reference Range: 1.2 0 - 7.70 Complete Blood Count + Differential 2.2 % 0.0 - 6.0 UP-Cslezvb-Vg rma MAC2 303 Work Phone: Complete Blood Count + Differential 0.3 % 0.0 - 0.9 JI-Szqmhgj-Id rma MAC2 303 Work Phone: Comment on above: Immature Granulocyte Count (IG) includes promyelocytes, myelocytes and metamyelocytes but does not include bands. Percent differential counts (%) should be interpreted in the context of the absolute cell counts (cells/L). Complete Blood Count + Differential 0.0 {/100_WBC} 0.0 - 0.0 DY-Dsvulzp-Ee rma MAC2 303 Work Phone: Coronavirus 2019 RNA by PCR, Symptomaticon 04-23-2022 Coronavirus 2019 RNA by PCR, Symptomatic Not detected Normal See Below YV-Cfpptpu-Y a selena MAC2 303 Work Phone: Comment on above: SOURCE: Nasal, Nasop haryngealReference Range: Not Detected.This test has received FDA Emergency Use Authorization (EUA) and has been verified by [facility]. This test is only authorized for the duration of time that circumstances exist to justify the authorization of the emergency use of in vitro diagnostic tests for the detection of SARS-CoV-2 virus and/or diagnosis of COVID-19 infection under section 564(b)(1) of the Act, 21 U.S.C. 360bbb-3(b)(1), unless the authorization is terminated or revoked sooner. [facility] is certified under CLIA-88 as qualified to perform high complexity testing. Testing is performed in the [facility] laboratory located at [address] [place] [address].SARS-CoV-2/Flu/RSV Multiplex Test: Fact sheet for providers: https://www.fda.gov/media/623595/downloadFact sheet for patients: https://www.fda.gov/media/590455/download Covid 19 Resultson 2 SARS-CoV-2 (COVID-19) RNA MEAGAN+probe Ql (Unsp spec) NEGATIVE COVID-19 Test Coronaviruses are common world-wide and are the cause of many common colds. SARS-COV2 is a new coronavirus that began circulating worldwide in 2019 so we are calling it COVID-19. It has been estimated that four out of five patients with COVID-19 will recover at home without the need for medical attention. Symptoms of COVID-19 may include cough, fever, shortness of breath, loss of taste or smell and other flu-like symptoms including chills, sore muscles, sore throat, and headache. Severe illness is more common in older people and people with other health problems such as high blood pressure, obesity, and immune system problems. If the test is positive, you have COVID-19. You will be contacted by the ordering physicians office and instructed to remain on home isolation, in accordance with CDC guidelines. You may also be contacted by the [facility] to see if any of your close contacts may have been exposed to the virus and need to quarantine. If the test is negative, you likely do not have COVID-19 at this time, but you still may have a different illness that can spread to other people (like Influenza, or the Flu) and could still be at risk for getting COVID-19. We recommend that you stay away from other people to limit the spread of illness until your symptoms are improving and you are fever-free for 24 hours without the use of fever lowering medications such as acetaminophen or ibuprofen. No test is 100% accurate so if you are still concerned you may have COVID-19, talk to your doctor about the need to continue to stay away from others. Medicines Unless your provider told you not to use the following: Acetaminophen (Tylenol and others) is generally safe. Anti-inflammatory medications, such as Ibuprofen (Advil or Motrin) or Naproxen (Aleve) can also be used. Gqje-ffl-jrsrfmq cough and cold medicines can be used according to the instructions on the package. Some osmn-xlw-mkefjdk medicines also contain acetaminophen. Make sure you are not taking more than your recommended dose. For those not hospitalized, there is no specific treatment available for this illness. Antibiotics do not treat Coronaviruses. Follow-Up Follow up with your doctor by scheduling a virtual visit or consider follow-up at one of our urgent care fever clinics. If you are having difficulty breathing, or are very weak and having difficulty standing, this is a medical emergency. Call 911 or have someone take you to the nearest emergency room immediately. If possible, wear a facemask. Additional guidance from the CDC for patients who tested POSITIVE for COVID-19 How to isolate: Isolate yourself in a specific room at home and limit your contact with others. Use a separate bathroom from other members of the household, when possible. Leave home only to get essential medical care. Do not go to work, school or public areas. Avoid using public transportation, ride-sharing, or taxis. Restrict contact with pets and other animals. If you must care for your pet or be around animals while you are sick, wash your hands before and after your interaction and wear a facemask. Make sure that shared spaces in the home have good airflow, such as by an air conditioner or an opened window, weather permitting. Personal Hygiene Procedures: Wear a face mask when in the same room as other people or pets. If a face mask interferes with your breathing, others should wear a mask when sharing space with you. Frequent hand-washing: wash your hands with soap and water for at least 20 seconds. If soap and water are not available, use alcohol-based hand brush sander. Avoid touching your eyes, nose, and mouth with unwashed hands. Household Hygiene Procedures: Avoid sharing personal household items such as dishes, glassware, cups, eating utensils, towels or bedding with other people or pets in your home. After use, these items should be washed with soap and hot water. Disinfect all high-touch surfaces every day with antibacterial cleaning solutions such as Lysol wipes, bleach, cleansers, etc. High-touch surfaces include tabletops, doorknobs, bathroom fixtures, toilets, phones, keyboards, tablets and bedside tables. Immediately clean any surfaces that may have blood, poop or body fluids on them, using antibacterial cleaning solutions such as Lysol wipes, bleach, cleansers, etc. If clothing or bedding come into contact with blood, poop or body fluids, they should be washed immediately. Follow the directions on the laundry detergent and clothing labels but hot water is recommended when possible. Stopping home isolation precautions: If possible, consult your doctor before stopping home isolation precautions. According to the CDC, you can discontinue home isolation precautions when you have met both of these criteria: Your fever and respiratory symptoms have been gone for 24 gideon (more content not included)... Normal [facility] LIPASEon 04-23-2022 Lipase [Catalytic activity/Vol] 13 U/L Normal [facility] Comment on above: Result Comment: Latia puncture immediately after or during the administration of Metamizole may lead to falsely low results. Testing should be performed immediately prior to Metamizole dosing. M-nyitwf-j-benzoquinone imine (metabolite of Acetaminophen) will generate erroneously low results in samples for patients that have taken toxic doses of acetaminophen. Performed By: #### C MP #### [facility] [address] [place] [address] Laboratory - Chemistry and C hemistry - challengeon 04-23-2022 Albumin BCP dye [Mass/Vol] 3.6 g/dL 3.4 - 5.0 RV-Mmawuul-Sq rma [id number] Work Phone: ALP [Catalytic activity/Vol] 66 U/L 33 - 110 CD-Ieiqino-Ao rma [id number] 303 Work Phone: ALT With P-5'-P [Catalytic activity/Vol] 11 U/L 7 - 45 WR-Qbituro-De rma [id number] 303 Work Phone: Comment on above: Patients treated wit h Sulfasalazine may generate falsely decreased results for ALT. Anion gap [Moles/Vol] 9 mmol/L below low threshold 10 - 20 GL-Spvmxto-Ls rma MAC2 303 Work Phone: AST With P-5'-P [Catalytic activity/Vol] 16 U/L 9 - 39 TA-Vfbzvts-Ns rma [id number] 303 Work Phone: Comment on above: MILD HEMOLYSIS DETEC NICK. The result may be falsely elevated due tohemolysis or other interferents. Clinical correlation is recommended.Repeat testing may be considered. Bilirubin [Mass/Vol] 0.5 mg/dL 0.0 - 1.2 MG-S urgery-Pa rma [id number] 303 Work Phone: Calcium [Mass/Vol] 8.6 mg/dL 8.6 - 10.3 MG-Amrit taye-Pa rma MAC2 303 Work Phone: Chloride [Moles/Vol] 107 mmol/L 98 - 107 MG-S urgery-Pa rma MAC2 303 Work Phone: CO2 [Moles/Vol] 28 mmol/L 21 - 32 MG-Surger y-Pa rma MAC2 303 Work Phone: Creatinine [Mass/Vol] 0.62 mg/dL See Below MG- Surgery-Pa rma MAC2 [address] Work Phone: Comment on above: Reference Range: 0.5 0 - 1.05 Glucose [Mass/Vol] 93 mg/dL 74 - 99 MG-Amrit taye-Pa rma MAC2 303 Work Phone: Potassium [Moles/Vol] 3.5 mmol/L 3.5 - 5.3 MG- Surgery-Pa rma [id number] 303 Work Phone: Comment on above: MILD HEMOLYSIS DETEC NICK. The result may be falsely elevated due tohemolysis or other interferents. Clinical correlation is recommended.Repeat testing may be considered. Protein [Mass/Vol] 5.9 g/dL below low threshold 6.4 - 8.2 UM-Hddpqfk-Bs rma MAC2 303 Work Phone: Sodium [Moles/Vol] 140 mmol/L 136 - 145 MG-Amrit taye-Pa rma MAC2 303 Work Phone: Urea nitrogen [Mass/Vol] 8 mg/dL 6 - 23 II-Jxvrasb-Lx rma MAC2 303 Work Phone: Laboratory - Coagulationon 0 04-23-2022 INR Coag (PPP) [Relative time] 1.1 {INR} 0.9 - 1.1 EH-Zeyylee-Pf rma MAC2 303 Work Phone: PT Coag (PPP) [Time] 12.7 s 9.8 - 13.4 MG-S urgery-Pa rma [facility] Work Phone: Lipase, Serumon 04-23-2022 Lipase [Catalytic activity/Vol] 13 U/L 9 - 82 KK-Ydbqdlg-Fz rma MAC2 303 Work Phone: Comment on above: Venipuncture immedia tely after or during the administration of Metamizole may lead to falsely low results. Testing should be performed immediately prior to Metamizole dosing. K-dtmfec-q-benzoquinone imine (metabolite of Acetaminophen) will generate erroneously low results in samples for patients that have taken toxic doses of acetaminophen. No Panel Informationon 04-23 >90 >90 FM-Hvsjlws-Zy rma MAC2 303 Work Phone: Comment on above: CALCULATIONS OF RANDY MATED GFR ARE PERFORMED USING THE 2020 CKD-EPI STUDY REFIT EQUATION WITHOUT THE RACE VARIABLE FOR THE IDMS-TRACEABLE CREATININE METHODS.https://jasn.asnjournals.org/content// N.5064855417 Order Reconciliationon 04-23 Order Reconciliation Page 1 Admission Reconciliation Document Reconciliation Type: Admission from ED requested on behalf of Jonathan Weems (Physician) done by Jonathan Weems) Admission from ED - Reconciliation: 23-Apr-2022 18:04 by: Jonathan Weems) Home MedicationsEnteredLast Dose TakenReconciled with current Order Reconciliation Comment/ Additional Information ALPRAZolam 0.5 mg oral tablet 1 tab(s) orally once a day, As [id number] ALPRAZolam Tablet (XANAX)DOSE = 0.5 mg Oral At Bedtime, PRN Anxiety ALPRAZolam 0.5 mg oral tablet continued as the inpatient order ALPRAZolam B-12 1000 mcg oral tablet 1000 microgram(s) injectable once a week-23-Apr-2022 Reviewed and Held Benadryl 25 mg oral tablet 1 tab(s) orally once a day (at bedtime)23-Apr-2022 Reviewed and Held methocarbamol 500 mg oral tablet 1 tab(s) orally every 8 hours 23-Apr-2022 Reviewed and Held omeprazole 2 mg/mL oral suspension 10 milliliter(s) orally 2 times a day 23-Apr-2022 Reviewed and Held oxyCODONE 5 mg/5 mL oral solution 5 milliliter(s) orally every 6 hours, As needed, [id number] Reviewed and Held sucralfate 1 g/10 mL oral suspension 10 milliliter(s) orally 4 times a day 23-Apr-2022 Sucralfate Oral Liquid (CARAFATE)DOSE = 1 gram(s) Oral 4 Times a Day Before Mealssucralfate 1 g/10 mL oral suspension continued as the inpatient order Sucralfate Oral Liquid Synthroid 50 mcg (0.05 mg) oral tablet 1 tab(s) orally once a [id number] Levothyroxine TabletDOSE = 50 microgram(s) Oral DailySynthroid 50 mcg (0.05 mg) oral tablet continued as the inpatient order Levothyroxine Additional Current Orders Acetaminophen Tablet (TYLENOL)DOSE = 650 mg Oral Every 4 Hours, PRN Pain - Mild (1-3) diphenhydrAMINE Injectable (BENADRYL)DOSE = 25 mg IntraVenous Push Every 4 Hours, PRN Itching Heparin SubCutaneous DOSE = 5,000 unit(s) SubCutaneous Every 8 Hours HYDROmorphone Injectable (DILAUDID)DOSE = 0.2 mg IntraVenous Push Every 4 Hours, PRN Pain - Mod (4-6) HYDROmorphone Injectable (DILAUDID)DOSE = 0.5 mg IntraVenous Push Every 4 Hours, PRN Pain - Severe (7-10) Ondansetron Injectable (ZOFRAN)DOSE = 4 mg IntraVenous Push Every 4 Hours, PRN Nausea and/or Vomiting Pantoprazole Injectable (PROTONIX)DOSE = 40 mg IntraVenous Push Every 24 Hours Promethazine IV Piggy Back in Sodium Chloride 0.9% 50 mL (PHENERGAN)DOSE = 12.5 mg Every 6 Hours, PRN NauseaRecommended Infusion Time: 15 minute(s) Sodium Chloride 0.9% Infusion IV Bag Volume = 1,000 mL Run at: 125 mL/hr IntraVenous Sodium Chloride 0.9% Injectable Flush via Peripheral LineVolume = 10 mL IntraVenous Flush Every 8 Hours and as Needed Sore Throat Lozenge LozengeDOSE = 1 lozenge(s) Oral Every 2 Hours, PRN Sore ThroatCa lozenge(s)/DOSE x 1 = 1 lozenge(s)/Dose (Daily Total is 12 lozenge(s)) Normal [facility] PT/INRon 04-23-2022 PT Coag (PPP) [Time] 12.7 s Normal 9.8 - 13.4 [facility] Comment on above: Performed By: #### P TINR #### [facility] [address] [place] [id number] PT, INR 1.1 Normal 0.9 - 1.1 [facility] Comment on above: Performed By: #### P TINR #### [address] [address] Provider Note - ED v3on 08- Provider Note - ED v3 Provider Note: Chart Review: ED NOTES ED NOTES: 46-year-old female who presents with abdominal pain and vomiting. Patient states she recently had a procedure done by Dr. Bose were she had an obstruction and he used a balloon to relieve her obstruction. She has had prior gastric bypass surgery. She states she has been having nausea and vomiting since then. She has been having mid abdominal pain. HISTORY OF PRESENTING ILLNESS MELINA is a 46 year old Female and was seen by me at 23-Apr-2022 16:14 for a chief complaint of abdominal pain (pt states she had an endoscopy for a small intestinal blockage and is now having abdominal pain, nausea, vomiting and diarrhea. Surgeon told her dto come to ER)(1). Triage Information: Most recent Vital Sign Value Date Temp (F): 96.6 04-23-2022 15:27 Temp (C): 35.9 04-23-2022 15:27 Heart Rate (beats/min): 60 04-23-2022 15:27 Respirations (breaths/min): 18 04-23-2022 15:27 SpO2 (%): 100 04-23-2022 15:27 BP Systolic (mm Hg): 137 04-23-2022 15:27 BP Diastolic (mm Hg): 80 04-23-2022 15:27 PAST MEDICAL HISTORY ALLERGIES/INTOLERANCES: Allergy Allergen: Tramadol Hydrochloride Type: Drug Reaction: Facial Swelling Allergen: Toradol Type: Drug Reaction: Unknown Allergen: Tape - Adhesive, Bandaids, Paper Type: Environment Reaction: Other Allergen: Aspartame Type: Food Reaction: Other Allergen: gabapentin Type: Drug Reaction: Unknown HEALTH HISTORY: No documented data. OUTPATIENT MEDICATIONS: Home Medications Review Status for Reconciliation: N/A Med Status: No Current Medications Drug Name: B-12 1000 mcg oral tablet Instructions: 1000 microgram(s) injectable once a week-THURSDAY Drug Name: Synthroid 50 mcg (0.05 mg) oral tablet Instructions: 1 tab(s) orally once a day Drug Name: ALPRAZolam 0.5 mg oral tablet Instructions: 1 tab(s) orally once a day, As Needed Drug Name: Pepcid 20 mg oral tablet Instructions: 1 tab(s) orally 2 times a day Drug Name: Benadryl 25 mg oral tablet Instructions: 1 tab(s) orally once a day (at bedtime) Drug Name: promethazine 25 mg oral tablet Instructions: 1 tab(s) orally every 6 hours, As Needed Drug Name: gabapentin 250 mg/5 mL oral solution Instructions: 5 milliliter(s) orally 3 times a day Drug Name: sucralfate 1 g/10 mL oral suspension Instructions: 10 milliliter(s) orally 4 times a day Drug Name: omeprazole 2 mg/mL oral suspension Instructions: 10 milliliter(s) orally 2 times a day Drug Name: oxyCODONE 5 mg/5 mL oral solution Instructions: 5 milliliter(s) orally every 6 hours, As needed, pain Drug Name: methocarbamol 500 mg oral tablet Instructions: 1 tab(s) orally every 8 hours SIGNIFICANT EVENTS: Clinical Events Description:Surgical Procedure Additional Notes:Abdominal/Pelvic Procedure Robotic Description:Surgical Procedure Additional Notes:Laparoscopic conversion of gastric sleeve to gelacio-en-y gastric bypass, hiatal hernia repair, TAP block, upper endoscopy Immunizations Description:.Influenza- Influenza Virus Past Medical History Description:c-sections x3 Description:subtotal hysterectomy Description:ovarian cysts Description:obesity Description:urinary retention Past Surgical History Description:gallbladder removed Description:Right breast lump removed (benign) REVIEW OF SYSTEMS GASTROINTESTINAL: POSITIVE for: abdominal pain; All other systems reviewed and are negative PHYSICAL EXAM CONSTITUTIONAL: Well appearing, well nourished, awake, alert, oriented to person, place, time/situation and in no apparent distress. HENMT: Airway patent, ears with clear tympanic membranes bilaterally. Nasal mucosa clear. Mouth with normal mucosa. Throat has no vesicles, no oropharyngeal exudates and uvula is midline. Face with no lymph node enlargement. EYES: Clear bilaterally, pupils equal, round and reactive to light. CARDIOVASCULAR: Normal rate, regular rhythm. Heart sounds S1, S2. No murmurs, rubs or gallops. PMI non-displaced. RESPIRATORY: Breath sounds clear and equal bilaterally. GASTROINTESTINAL: Abdomen soft, non-distended, no rebound, no guarding. Bowel sounds normal in all 4 quadrants. MUSCULOSKELETAL: Spine appears normal, range of motion is not limited, no muscle or joint tenderness. NEUROLOGICAL: Alert and oriented, no focal deficits, no motor or sensory deficits. SKIN: Skin normal color for race, warm, dry and intact. No evidence of trauma. PSYCHIATRIC: Alert and oriented to person, place, time/situation. normal mood and affect. No apparent risk to self or others. CRITICAL CARE RESULTS: Recent Lab Results: I have reviewed these laboratory results: Complete Blood Count + Differential 23-Apr-2022 16:55:00 ResultValue White Blood Cell Count 6.5 Nucleated Erythrocyte Count 0.0 Red Blood Cell Count 4.04 HGB 11.6 L HCT 36.5 MCV 90 MCHC 3 (more content not included)... Normal [facility] Risk Screen - Adult Emergenc yon 04-23-2022 Risk Screen - Adult Emergency Preferred Language: Preferred Language: Preferred Language for Discussing Health Care (patient/designee)Serbian Advanced Directives: Advance Directive/DNRno Family Violence Adult: Abuse Screen: Are you or have you been threatened or abused physically, emotionally, or sexually by anyoneno Learning Assessment (Patient): Learning Assessment (Patient): Patient is Able to be Assessed for Learningyes Factors Influencing Readiness to Learnacuteness of illness Factors that Impact Ability to Learnacuteness of illness Devices/Methods Used to Communicatenone Learning Preferencesskill demonstration; verbal instruction Cultural Considerationsnone Developmental Considerationsnone Anabaptist Considerationsnone Learning Assessment (Other Learner): Learning Assessment (Other Learner): Other learner availableno Pressure Injury/TB/Substance: Pressure Injury: Do you have a coughno Smoking Statusnever smoker (1) Alcohol Usedenies(1) Drug Usedenies (1) Drug 2 Usedenies (1) Admission Risk Screen: Significant IndicatorsComplete CAGE: CAGE: Is this an injured patient at a Trauma Center ([facility]/[place]/[facility] [place]): no Electronic Signatures: Nithya Apple (RN) (Signed 23-Apr-2022 19:45) Authored: Preferred Language, Advanced Directives, Family Violence Adult, Learning Assessment (Patient), Learning Assessment (Other Learner), Pressure Injury/TB/Substance, Pressure Injury, CAGE Last Updated: 23-Apr-2022 19:45 by Nithya Apple (RN) References: 1. Data Referenced From History and Physical 23-Apr-2022 17:55 Normal [facility] Triage - EDon 04-23-2022 Triage - ED Quick Triage: Are You no Have You Given In The Last 6 Weeksno Are You Currently Breastfeedingno The patient and/or guardian verbally acknowledges placement for services into the following (when Urgent Care Service hours are operating):emergency department Chart Review: PRIMARY ASSESSMENT MELINA DÍAZ's primary assessment is Within Defined Limits. The airway is open and patent. Breathing spontaneous and unlabored with clear breath sounds bilaterally. Circulation is normal with good peripheral pulses. Skin is warm and dry and color is normal for race. ARRIVAL INFORMATION Mode of Arrival: private vehicle CHIEF COMPLAINT MELINA DÍAZ is a Female patient with a chief complaint of abdominal pain (pt states she had an endoscopy for a small intestinal blockage and is now having abdominal pain, nausea, vomiting and diarrhea. Surgeon told her dto come to ER). Triage Date/Time: 23-Apr-2022 15:27 ELAINE: 3 Vital Signs: Temperature: 96.6F ( 35.9C) taken temporal Blood Pressure: 137/80 Mean: Heart Rate: 60 Respiratory Rate: 18 Pulse Oximetry: 100% on room air, no respiratory support. Height: 5 feet 8.00 inches. 172.7 CM Weight: 209.4 pounds. Calculated 95.0 kg. (stated) Calculated BMI (kg/m2): 31.852 Calculated BSA (m2) 2.13 [place] Coma Scale: Best Eye Response: (E4) spontaneous Best Motor Response: (M6) obeys commands Best Verbal Response: (V5) oriented Clif[place] Score: 15 Allergies: yes Patient has homicidal thoughts: no Symptoms Are POSITIVE For: distention, nausea and vomiting. Symptoms Are Negative For: anorexia, constipation, diaphoresis, diarrhea, fever and rectal blood. Risk Screens Suicide Risk Screen In the Past Month: Have you wished you were or wished you could go to sleep and not wake up no In the Past Month: Have you had any actual thoughts of killing yourself no In Your Lifetime: Have you ever done anything, started to do anything, or prepared to do anything to end your life no Suarez Fall Scale Screening Has the patient fallen before (or is the patient in the ED as a result of a fall) has not had a fall Does the patient have an impaired gait does not have impaired gait Is the patient cognitively impaired not cognitively impaired Interventions: Suarez Fall Interventions: LOW INTERVENTIONS: *patient oriented to surroundings and call system, * patient/family falls education completed and documented, *patients fall status communicated during bedside handoff, *whiteboard updated, *mode of toileting discussed with patient, *bed in low position with brakes locked, *call light in reach, * non-skid footwear TRAVEL HISTORY Travel History Coronavirus Screening: no exposure or symptoms Travel Exposure History: NO travel to International locations in the past 30 days PAIN Pain Scale Used: TAE Past Medical History: Past Medical History Reviewedyes Electronic Signatures: Angelika Gillespie (PIETRO) (Signed 23-Apr-2022 15:31) Entered: Risk Screens, Pain, ABCD, Travel History, Chart Review, Scores, Past Medical History Authored: Quick Triage, Risk Screens, Pain, ABCD, Travel History, Chart Review, Scores, Past Medical History Last Updated: 23-Apr-2022 15:31 by Angelika Gillespie (PIETRO) Normal [facility] CBCon 04-17-2022 Erythrocyte distribution width (RBC) [Ratio] 14.9 % High 11.5 - 14.5 [facility] Comment on above: Performed By: #### C BC #### [facility] [address] [place] [address] Hematocrit (Bld) [Volume fraction] 35.5 % Low 36.0 - 46.0 [facility] Comment on above: Performed By: #### C BC #### [facility] [address] [place] [address] Hemoglobin (Bld) [Mass/Vol] 11.3 g/dL Low 12.0 - 16.0 [facility] Comment on above: Performed By: #### C BC #### [facility] [address] [place] [address] MCHC (RBC) [Mass/Vol] 31.8 g/dL Low 32.0 - 36.0 [facility] Comment on above: Performed By: #### C BC #### [facility] [address] [place] [address] MCV (RBC) [Entitic vol] 91 fL Normal 80 - 100 [facility] Comment on above: Performed By: #### C BC #### [facility] [address] [place] [address] NUCLEATED RBC 0.0 /100 WBC Normal 0.0-0.0 [facility] Comment on above: Performed By: #### C BC #### [facility] [address] [place] [address] Platelets (Bld) [#/Vol] 233 10*3/uL Normal 150 - 450 [facility] Comment on above: Performed By: #### C BC #### [facility] [address] [place] [address] RBC 3.91 x10E12/L Low 4.00 - 5.20 [facility] Comment on above: Performed By: #### C BC #### [facility] [address] [place] [address] WBC (Bld) [#/Vol] 5.9 10*3/uL Normal 4.4 - 11.3 [facility] Comment on above: Performed By: #### C BC #### [facility] [address] [place] [address] Laboratory - Hematology and Cell countson 04-17-2022 Erythrocyte distribution width (RBC) [Ratio] 14.9 % above high threshold See Below TA-Dpefutp-Kd rma [id number] 303 Work Phone: Comment on above: Reference Range: 11. 5 - 14.5 Hematocrit (Bld) [Volume fraction] 35.5 % below low threshold See Below QW-Sbzyrul-Mi rma [id number] 303 Work Phone: Comment on above: Reference Range: 36. 0 - 46.0 Hemoglobin (Bld) [Mass/Vol] 11.3 g/dL below low threshold See Below SE-Bpshdlk-Jd rma [id number] 303 Work Phone: Comment on above: Reference Range: 12. 0 - 16.0 MCHC (RBC) [Mass/Vol] 31.8 g/dL below low threshold See Below KU-Fcklqjm-Bm rma [id number] 303 Work Phone: Comment on above: Reference Range: 32. 0 - 36.0 MCV (RBC) [Entitic vol] 91 fL 80 - 100 NW-Audheyf-Or rma [id number] 303 Work Phone: Platelets (Bld) [#/Vol] 233 10*3/uL 150 - 450 UH-Bwcvpsv-Tl rma [id number] 303 Work Phone: RBC (Bld) [#/Vol] 3.91 {x10E12/L} below low threshold See Below YS-Zeiqfex-Jt rma [id number] 303 Work Phone: Comment on above: Reference Range: 4.0 0 - 5.20 WBC (Bld) [#/Vol] 5.9 10*3/uL 4.4 - 11.3 MG-Amrit taye-Pa rma [id number] 303 Work Phone: MAGNESIUMon 04-17-2022 Magnesium [Mass/Vol] 1.82 mg/dL Normal 1.60 - 2.40 [facility] Comment on above: Performed By: #### M G #### [facility] [address] [place] [address] Magnesium, Serumon 2 Magnesium [Mass/Vol] 1.82 mg/dL See Below MG-S urgery-Pa rma MAC2 303 Work Phone: Comment on above: Reference Range: 1.6 0 - 2.40 No Panel Informationon 04-17 0.0 {/100_WBC} 0.0-0.0 MG-Surgery -Pa rma MAC2 303 Work Phone: RENAL FUNCTION PANELon 04-17 Albumin [Mass/Vol] 3.2 g/dL Low 3.4 - 5.0 [facility] Comment on above: Performed By: #### C BC #### [facility] [address] [place] [address] Anion gap [Moles/Vol] 14 mmol/L Normal 10 - 20 [facility] Comment on above: Performed By: #### C BC #### [facility] [address] [place] [address] Calcium [Mass/Vol] 8.5 mg/dL Low 8.6 - 10.6 [facility] Comment on above: Performed By: #### C BC #### [facility] [address] [place] [address] Chloride [Moles/Vol] 108 mmol/L High 98 - 107 [facility] Comment on above: Performed By: #### C BC #### [facility] [address] [place] [address] Creatinine [Mass/Vol] 0.54 mg/dL Normal 0.50 - 1.05 [facility] Comment on above: Performed By: #### C BC #### [facility] [address] [place] [address] eGFR FEMALE >90 Normal >90 [facility] Comment on above: Result Comment: CALC ULATIONS OF ESTIMATED GFR ARE PERFORMED USING THE 2020 CKD-EPI STUDY REFIT EQUATION WITHOUT THE RACE VARIABLE FOR THE IDMS-TRACEABLE CREATININE METHODS. https://jasn.asnjournals.org/content/early/ASN.419583 7351 Performed By: #### C BC #### [facility] [address] [place] [address] Glucose [Mass/Vol] 137 mg/dL High 74 - 99 [facility] Comment on above: Performed By: #### C BC #### [facility] [address] [place] [address] HCO3 (Bld) [Moles/Vol] 24 mmol/L Normal 21 - 32 [facility] Comment on above: Performed By: #### C BC #### [facility] [address] [place] [address] Phosphate [Mass/Vol] 3.4 mg/dL Normal 2.5 - 4.9 [facility] Comment on above: Result Comment: The performance characteristics of phosphorus testing in heparinized plasma have been validated by the individual laboratory site where testing is performed. Testing on heparinized plasma is not approved by the FDA; however, such approval is not necessary. Performed By: #### C BC #### [facility] [address] [place] [address] Potassium [Moles/Vol] 4.5 mmol/L Normal 3.5 - 5.3 [facility] Comment on above: Performed By: #### C BC #### [facility] [address] [place] [address] Sodium [Moles/Vol] 141 mmol/L Normal 136 - 145 [facility] Comment on above: Performed By: #### C BC #### [facility] [address] [place] [address] Urea nitrogen [Mass/Vol] 5 mg/dL Low 6 - 23 [facility] Comment on above: Performed By: #### C BC #### [facility] [address] [place] [address] Renal Function Panelon 04-17 Albumin BCP dye [Mass/Vol] 3.2 g/dL below low threshold 3.4 - 5.0 UC-Mkmqwmw-Mk rma MAC2 303 Work Phone: Anion gap [Moles/Vol] 14 mmol/L 10 - 20 MG- Surgery-Pa rma MAC2 303 Work Phone: Calcium [Mass/Vol] 8.5 mg/dL below low threshold 8.6 - 10.6 EE-Lesfupr-Bf rma MAC2 303 Work Phone: Chloride [Moles/Vol] 108 mmol/L above high threshold 98 - 107 NN-Ahookjc-Wx rma MAC2 303 Work Phone: CO2 [Moles/Vol] 24 mmol/L 21 - 32 MG-Surger y-Pa rma MAC2 303 Work Phone: Creatinine [Mass/Vol] 0.54 mg/dL See Below MG- Surgery-Pa rma MAC2 303 Work Phone: Comment on above: Reference Range: 0.5 0 - 1.05 Glucose [Mass/Vol] 137 mg/dL above high threshold 74 - 99 DC-Kigdqot-Eb rma MAC2 303 Work Phone: Phosphate [Mass/Vol] 3.4 mg/dL 2.5 - 4.9 MG-S urgery-Pa rma MAC2 303 Work Phone: Comment on above: The performance ciara acteristics of phosphorus testing in heparinized plasma have been validated by the individual laboratory site where testing is performed. Testing on heparinized plasma is not approved by the FDA; however, such approval is not necessary. Potassium [Moles/Vol] 4.5 mmol/L 3.5 - 5.3 MG- Surgery-Pa rma MAC2 303 Work Phone: Sodium [Moles/Vol] 141 mmol/L 136 - 145 MG-Amrit taye-Pa rma MAC2 303 Work Phone: Urea nitrogen [Mass/Vol] 5 mg/dL below low threshold 6 - 23 AR-Mrjghqj-Kx rma MAC2 303 Work Phone: Renal Function Panel >90 >90 MG-S urgery-Pa rma MAC2 303 Work Phone: Comment on above: CALCULATIONS OF RANDY MATED GFR ARE PERFORMED USING THE 2020 CKD-EPI STUDY REFIT EQUATION WITHOUT THE RACE VARIABLE FOR THE IDMS-TRACEABLE CREATININE METHODS.https://jasn.asnjournals.org/content/early/ N.2385860492 CBCon 04-16-2022 Erythrocyte distribution width (RBC) [Ratio] 15.2 % High 11.5 - 14.5 [facility] Comment on above: Performed By: #### C BC #### [facility] [address] [place] [address] Hematocrit (Bld) [Volume fraction] 38.3 % Normal 36.0 - 46.0 [facility] Comment on above: Performed By: #### C BC #### [facility] [address] [place] [address] Hemoglobin (Bld) [Mass/Vol] 12.4 g/dL Normal 12.0 - 16.0 [facility] Comment on above: Performed By: #### C BC #### [facility] [address] [place] [address] MCHC (RBC) [Mass/Vol] 32.4 g/dL Normal 32.0 - 36.0 [facility] Comment on above: Performed By: #### C BC #### [facility] [address] [place] [address] MCV (RBC) [Entitic vol] 92 fL Normal 80 - 100 [facility] Comment on above: Performed By: #### C BC #### [facility] [address] [place] [address] NUCLEATED RBC 0.0 /100 WBC Normal 0.0-0.0 [facility] Comment on above: Performed By: #### C BC #### [facility] [address] [place] [address] PLT SEE COMMENT Normal 150 - 450 [facility] Comment on above: Result Comment: PLAT ELET CLUMPS PRECLUDE QUANTITATION. PLATELET ESTIMATE APPEARS ADEQUATE. Performed By: #### C BC #### [facility] [address] [place] [address] RBC 4.18 x10E12/L Normal 4.00 - 5.20 [facility] Comment on above: Performed By: #### C BC #### [facility] [address] [place] [address] WBC (Bld) [#/Vol] 5.0 10*3/uL Normal 4.4 - 11.3 [facility] Comment on above: Performed By: #### C BC #### [facility] [address] [place] [address] Daily Progress Note-Surgeryo n 04-16-2022 Daily Progress Note-Surgery Service: Surgery Subjective Data: MELINA DÍAZ is a 46 year old Female who is Hospital Day # 6. No overnight events. Said her pain was the same this AM, no emesis. Objective Data: Objective Information: T PRBPMAPSpO2 [id number]/6998% Date/Time04/16 5: 5: 5: 5: 5:09 Range(36.5C - 37.2C ) (52 - 68 ) (18 - 18 ) (91 - 119 )/ (59 - 70 ) (96% - 100% ) Highest temp of 37.2 C was recorded at 04/16 5:09 Pain reported at 04/16 4:04: 8 = Severe Physical Exam Narrative: Physical Exam: Constitutional: Well developed, awake/alert/oriented x3, no distress, alert and cooperative Eyes: EOMI ENMT: mucous membranes moist, no apparent injury, no lesions seen Head/Neck: Neck supple, no apparent injury, trachea midline Respiratory/Thorax: Nonlabored breathing on RA Cardiovascular: Regular rate Gastrointestinal: Nondistended, soft Musculoskeletal: CARRENO Extremities: normal extremities Psychological: Appropriate mood and behavior Skin: Warm and dry, no lesions, no rashes Assessment and Plan: Code Status: Code StatusFull Code Assessment: Pt is 46 yo F s/p sleeve gastrectomy w/ revision RYGB and HHR by Dr. 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 No significant changes to previous plan, anticipating need for EGD w/ dilation today with Dr. Terry Plan: - CLD for now, advance to fulls for dinner if tolerating - IVF, daily RFP replete electrolytes PRN - PPI - carafate - lovenox dvt ppx - EGD today with dilation of GJ stricture Dispo: likely home tomorrow if tolerating diet, pain controlled Marisol Jimenez PGY 1 [place] [address] Attestation: Note Completion: I am a: Resident/Fellow Attending AttestationI reviewed the resident/fellows documentation and discussed the patient with the resident/fellow. I agree with the resident/fellows medical decision making as documented in the note. Electronic Signatures: Brittany Bose) (Signed 16-Apr-2022 15:09) Authored: Note Completion Co-Signer: Service, Subjective Data, Objective Data, Assessment and Plan, Note Completion Marisol Jimenez (Resident)) (Signed 16-Apr-2022 11:17) Authored: Service, Subjective Data, Objective Data, Assessment and Plan, Note Completion Last Updated: 16-Apr-2022 15:09 by Brittany Bose) Normal [facility] Laboratory - Hematology and Cell countson 04-16-2022 Erythrocyte distribution width (RBC) [Ratio] 15.2 % above high threshold See Below [facility] Work Phone: Comment on above: Reference Range: 11. 5 - 14.5 Hematocrit (Bld) [Volume fraction] 38.3 % See Below [facility] Work Phone: Comment on above: Reference Range: 36. 0 - 46.0 Hemoglobin (Bld) [Mass/Vol] 12.4 g/dL See Below [facility] Work Phone: [phone] Comment on above: Reference Range: 12. 0 - 16.0 MCHC (RBC) [Mass/Vol] 32.4 g/dL See Below [facility] Work Phone: [phone] Comment on above: Reference Range: 32. 0 - 36.0 MCV (RBC) [Entitic vol] 92 fL 80 - 100 [facility] Work Phone: [phone] Platelets (Bld) [#/Vol] SEE COMMENT 150 - 450 [facility] Work Phone: [phone] Comment on above: PLATELET CLUMPS PREC LUDE QUANTITATION.PLATELET ESTIMATE APPEARS ADEQUATE. RBC (Bld) [#/Vol] 4.18 {x10E12/L} See Below [facility] Work Phone: [phone] Comment on above: Reference Range: 4.0 0 - 5.20 WBC (Bld) [#/Vol] 5.0 10*3/uL 4.4 - 11.3 [facility] Work Phone: MAGNESIUMon 04-16-2022 Magnesium [Mass/Vol] 1.97 mg/dL Normal 1.60 - 2.40 [facility] Comment on above: Performed By: #### M G ####[id number] [facility] [place] [address] Magnesium, Serumon 2 Magnesium [Mass/Vol] 1.97 mg/dL See Below [facility] Work Phone: Comment on above: Reference Range: 1.6 0 - 2.40 No Panel Informationon 04-16 [email or web address]?={ [email or web address]} [facility] Work Phone: [phone] [facility] Work Phone: [phone] 0.0 {/100_WBC} 0.0-0.0 [facility] Work Phone: RENAL FUNCTION PANELon 04-16 Albumin [Mass/Vol] 3.4 g/dL Normal 3.4 - 5.0 [facility] Comment on above: Performed By: #### C BC #### [facility] [address] [place] [address] Anion gap [Moles/Vol] 12 mmol/L Normal 10 - 20 [facility] Comment on above: Performed By: #### C BC #### [facility] [address] [place] [address] Calcium [Mass/Vol] 8.5 mg/dL Low 8.6 - 10.6 [facility] Comment on above: Performed By: #### C BC #### [facility] [address] [place] [address] Chloride [Moles/Vol] 107 mmol/L Normal 98 - 107 [facility] Comment on above: Performed By: #### C BC #### [facility] [address] [place] [address] Creatinine [Mass/Vol] 0.54 mg/dL Normal 0.50 - 1.05 [facility] Comment on above: Performed By: #### C BC #### [facility] [address] [place] [address] eGFR FEMALE >90 Normal >90 [facility] Comment on above: Result Comment: CALC ULATIONS OF ESTIMATED GFR ARE PERFORMED USING THE 2020 CKD-EPI STUDY REFIT EQUATION WITHOUT THE RACE VARIABLE FOR THE IDMS-TRACEABLE CREATININE METHODS. https://jasn.asnjournals.org/content//ASN.064544 1463 Performed By: #### C BC #### [facility] [address] [place] [address] Glucose [Mass/Vol] 76 mg/dL Normal 74 - 99 [facility] Comment on above: Performed By: #### C BC #### [facility] [address] [place] [address] HCO3 (Bld) [Moles/Vol] 24 mmol/L Normal 21 - 32 [facility] Comment on above: Performed By: #### C BC #### [facility] [address] [place] [address] Phosphate [Mass/Vol] 4.3 mg/dL Normal 2.5 - 4.9 [facility] Comment on above: Result Comment: The performance characteristics of phosphorus testing in heparinized plasma have been validated by the individual laboratory site where testing is performed. Testing on heparinized plasma is not approved by the FDA; however, such approval is not necessary. Performed By: #### C BC #### [facility] [address] [place] [address] Potassium [Moles/Vol] 3.9 mmol/L Normal 3.5 - 5.3 [facility] Comment on above: Performed By: #### C BC #### [facility] [address] [place] [address] Sodium [Moles/Vol] 139 mmol/L Normal 136 - 145 [facility] Comment on above: Performed By: #### C BC #### [facility] [address] [place] [address] Urea nitrogen [Mass/Vol] 5 mg/dL Low 6 - 23 [facility] Comment on above: Performed By: #### C BC #### [facility] [address] [place] [address] Renal Function Panelon 04-16 Albumin BCP dye [Mass/Vol] 3.4 g/dL 3.4 - 5.0 [facility] Work Phone: Anion gap [Moles/Vol] 12 mmol/L 10 - 20 [facility] Work Phone: Calcium [Mass/Vol] 8.5 mg/dL below low threshold 8.6 - 10.6 [facility] Work Phone: Chloride [Moles/Vol] 107 mmol/L 98 - 107 [facility] Work Phone: CO2 [Moles/Vol] 24 mmol/L 21 - 32 [facility] Work Phone: Creatinine [Mass/Vol] 0.54 mg/dL See Below [facility] Work Phone: Comment on above: Reference Range: 0.5 0 - 1.05 Glucose [Mass/Vol] 76 mg/dL 74 - 99 [facility] Work Phone: Phosphate [Mass/Vol] 4.3 mg/dL 2.5 - 4.9 [facility] Work Phone: Comment on above: The performance ciara acteristics of phosphorus testing in heparinized plasma have been validated by the individual laboratory site where testing is performed. Testing on heparinized plasma is not approved by the FDA; however, such approval is not necessary. Potassium [Moles/Vol] 3.9 mmol/L 3.5 - 5.3 [facility] Work Phone: Sodium [Moles/Vol] 139 mmol/L 136 - 145 [facility] Work Phone: Urea nitrogen [Mass/Vol] 5 mg/dL below low threshold 6 - 23 [facility] Work Phone: Renal Function Panel >90 >90 [facility] Work Phone: Comment on above: CALCULATIONS OF RANDY MATED GFR ARE PERFORMED USING THE 2020 CKD-EPI STUDY REFIT EQUATION WITHOUT THE RACE VARIABLE FOR THE IDMS-TRACEABLE CREATININE METHODS.https://jasn.asnjournals.org/content/early/ N.1711394273 [facility] Surgical Pathology Depar tmenton 04-16-2022 [facility] Surgical Pathology Department Name MELINA DÍAZ Pathologist: MARILUZ FAIRBANKS MD Date of Procedure: 04/16/2022 Date Received: 04/16/2022 Date Reported 04/21/2022 Submitting Physician: AUSTIN TERRY MD Location: [place] [address] Copy To/Referring/Attending: LUCIA MEYERS MD Other External # FINAL DIAGNOSIS A. 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 --NO MORPHOLOGIC EVIDENCE OF HELICOBACTER ORGANISMS SEEN ON H AND E SLIDES. Interpretation performed at: [facility] Department of Pathology [address] [place], [place] [address] Electronically Signed Out By MARILUZ FAIRBANKS MD/STEVE By the signature on this report, the individual or group listed as making the Final Interpretation/Diagnosis certifies that they have reviewed this case. Diagnostic interpretation performed at [facility] [address] [place] [address] Clinical History: rule out H.Pylori Specimens Submitted As: A: GASTRIC POUCH BIOPSY Gross Description: Received in formalin, labeled with the patient's name and hospital number and A , are multiple fragments of rodriguez, soft tissue aggregating to 1.3 x 0.3 x 0.2 cm. The specimen is submitted in toto in one cassette. LMP lmp/04/18/2022 [facility] Department of Pathology [address] [place] [address] Normal [facility] Comment on above: Performed By: #### C #### [address] 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 PRIMARYPROVIDER Providers: Austin Terry MD (Doctor), Duke Rajan, Intelligence Operations Specialist EDREFPROVIDER Referring: Austin Terry MD CURRENT_MEDS Medicines: General Anesthesia COMPLIC Complications: No immediate complications. Estimated blood loss: Minimal. ENDOPROCEDURETEXT Procedure: Pre-Anesthesia Assessment: - Prior to the procedure, a History and Physical was performed, and patient medications and allergies were reviewed. The patient is competent. The risks and benefits of the procedure and the sedation options and risks were discussed with the patient. All questions were answered and informed consent was obtained. Patient identification and proposed procedure were verified by the physician in the endoscopy suite. Mental Status Examination: alert and oriented. Airway Examination: normal oropharyngeal airway and neck mobility. Respiratory Examination: clear to auscultation. CV Examination: normal. Prophylactic Antibiotics: The patient requires prophylactic antibiotics for the planned performance of dilation. Prior Anticoagulants: The patient has taken no anticoagulant or antiplatelet agents. ASA Grade Assessment: I - A normal, healthy patient. After reviewing the risks and benefits, the patient was deemed in satisfactory condition to undergo the procedure. The anesthesia plan was to use general anesthesia. Immediately prior to administration of medications, the patient was re-assessed for adequacy to receive sedatives. The heart rate, respiratory rate, oxygen saturations, blood pressure, adequacy of pulmonary ventilation, and response to care were monitored throughout the procedure. The physical status of the patient was re-assessed after the procedure. After obtaining informed consent, the endoscope was passed under direct vision. Throughout the procedure, the patient's blood pressure, pulse, and oxygen saturations were monitored continuously. The endoscope was introduced through the mouth, and advanced to the afferent and efferent jejunal loops. The upper GI endoscopy was accomplished without difficulty. The patient tolerated the procedure well. FINDING Findings: The exam of the esophagus was otherwise normal. Bile was found in the lower third of the esophagus. Evidence of a Gelacio-en-Y gastrojejunostomy was found. The gastrojejunal anastomosis was characterized by healthy appearing mucosa. This was traversed after dilation. The funug-is-pgimxvw limb was characterized by healthy appearing mucosa and congestion. The examined jejunum was normal. A TTS dilator was passed through the scope. Dilation with an 8-9-10 mm anastomotic balloon dilator was performed under fluoroscopic guidance at the anastomosis. A TTS dilator was passed through the scope. Dilation with a 12-13.5-15 mm anastomotic balloon dilator was performed under fluoroscopic guidance at the anastomosis. A TTS dilator was passed through the scope. Dilation with a 15-16.5-18 mm anastomotic balloon dilator was performed under fluoroscopic guidance at the anastomosis. Biopsies were taken with a cold forceps on the lesser curvature of the stomach in the pouch for histology and H. pylori. SEDATION Moderate Sedation: An independent trained observer was present and continuously monitored the patient. IMPRESS Impression: - Bile in the lower third of the esophagus. - Gelacio-en-Y gastrojejunostomy with gastrojejunal anastomosis characterized by healthy appearing mucosa. - Normal examined jejunum. - Dilation performed at the anastomosis. - Dilation performed at the anastomosis. - Dilation performed at the anastomosis. - No specimens collected. EBL Estimated Blood Loss: Estimated blood loss was minimal. ENDORECOMMENDATION Recommendation: - Return patient to [facility] for ongoing care. - Clear liquid diet today. - Continue present medications. - Await pathology results. - Telephone referring physician for pathology results in 1 week. CPT_CODES Procedure Code(s): --- Professional --- 62445, Esophagogastroduodenoscopy , flexible, transoral; with dilation of gastric/duodenal stricture(s) (eg, balloon, bougie) 35906, Intraluminal dilation of strictures and/or obstructions (eg, esophagus), radiological supervision and interpretation ICD_CODES Diagn (more content not included)... Normal [facility] CBC AND DIFFERENTIALon 04-15 % AUTOMATED IMMATURE GRAN 0.2 % Normal 0.0 - 0.9 [facility] Comment on above: Result Comment: Yanni ture Granulocyte Count (IG) includes promyelocytes, myelocytes and metamyelocytes but does not include bands. Percent differential counts (%) should be interpreted in the context of the absolute cell counts (cells/L). Performed By: #### C BCDF ####[id number] [place] [address] Basophils (Bld) [#/Vol] 0.05 10*3/uL Normal 0.00 - 0.10 [facility] Comment on above: Performed By: #### C BCDF ####[id number] [place] [address] Eosinophils (Bld) [#/Vol] 0.24 10*3/uL Normal 0.00 - 0.70 [facility] Comment on above: Performed By: #### C BCDF ####[id number] [place] [address] Eosinophils/100 WBC (Bld) 6.0 % Normal 0.0 - 6.0 [facility] Comment on above: Performed By: #### C BCDF ####[id number] [place] [address] Lymphocytes (Bld) [#/Vol] 1.83 10*3/uL Normal 1.20 - 4.80 [facility] Comment on above: Performed By: #### C BCDF ####[id number] [place] [address] Monocytes (Bld) [#/Vol] 0.48 10*3/uL Normal 0.10 - 1.00 [facility] Comment on above: Performed By: #### C BCDF ####[id number] [place] [address] Neutrophils (Bld) [#/Vol] 1.42 10*3/uL Normal 1.20 - 7.70 [facility] Comment on above: Performed By: #### C BCDF ####[id number] [place] [address] NUCLEATED RBC 0.0 /100 WBC Normal 0.0-0.0 [facility] Comment on above: Performed By: #### C BCDF ####[id number] [place] [address] RBC 3.84 x10E12/L Low 4.00 - 5.20 [facility] Comment on above: Performed By: #### C BCDF ####[id number] [place] [address] CORONAVIRUS 2019, SCREEN ASY MPTOMATICon 04-15-2022 SARS-CoV-2 (COVID-19) RNA MEAGAN+probe Ql (Unsp spec) Not detected Normal Not Detected [facility] Comment on above: Result Comment: . This test has received FDA Emergency Use Authorization (EUA) and has been verified by [facility] ([facility]). This test is only authorized for the duration of time that circumstances exist to justify the authorization of the emergency use of in vitro diagnostic tests for the detection of SARS-CoV-2 virus and/or diagnosis of COVID-19 infection under section 564(b)(1) of the Act, 21 U.S.C. 360bbb-3(b)(1), unless the authorization is terminated or revoked sooner. [facility] is certified under CLIA-88 as qualified to perform high complexity testing. Testing is performed in the [facility] located at [address] [place] [address]. SARS-CoV-2/Flu/RSV Multiplex Test: Fact sheet for providers: https://www.fda.gov/media/747763/download Fact sheet for patients: https://www.fda.gov/media/412611/download Performed By: #### C OVSC ####[id number] [place] [address] Lab Specimen Source Nasal, Nasopharyngeal Normal [facility] Comment on above: Performed By: #### C OVSC ####[id number] [place] [address] Complete Blood Count + Diffe rentialon 04-15-2022 Basophils/100 WBC (Bld) 1.2 % 0.0 - 2.0 [facility] Work Phone: Comment on above: Performed By: #### C BCDF ####[id number] [place] [id number] Erythrocyte distribution width (RBC) [Ratio] 15.3 % above high threshold See Below [facility] Work Phone: Comment on above: Reference Range: 11. 5 - 14.5 Performed By: #### C BCDF ####[id number] [place] [id number] Hematocrit (Bld) [Volume fraction] 36.7 % See Below [facility] Work Phone: Comment on above: Reference Range: 36. 0 - 46.0 Performed By: #### C BCDF ####[id number] [place] [id number] Hemoglobin (Bld) [Mass/Vol] 11.2 g/dL below low threshold See Below [facility] Work Phone: Comment on above: Reference Range: 12. 0 - 16.0 Performed By: #### C BCDF ####[id number] [place] [address] Lymphocytes/100 WBC (Bld) 45.4 % See Below [facility] Work Phone: [phone] Comment on above: Reference Range: 13. 0 - 44.0 Performed By: #### C BCDF ####[id number] [place] [address] MCHC (RBC) [Mass/Vol] 30.5 g/dL below low threshold See Below [facility] Work Phone: [phone] Comment on above: Reference Range: 32. 0 - 36.0 Performed By: #### C BCDF ####[id number] [place] [address] MCV (RBC) [Entitic vol] 96 fL 80 - 100 [facility] Work Phone: [phone] Comment on above: Performed By: #### C BCDF ####[id number] [place] [address] Monocytes/100 WBC (Bld) 11.9 % 2.0 - 10.0 [facility] Work Phone: [phone] Comment on above: Performed By: #### C BCDF ####[id number] [place] [address] Neutrophils/100 WBC (Bld) 35.3 % See Below [facility] Work Phone: [phone] Comment on above: Reference Range: 40. 0 - 80.0 Performed By: #### C BCDF ####[id number] [place] [address] Platelets (Bld) [#/Vol] 188 10*3/uL 150 - 450 [facility] Work Phone: [phone] Comment on above: Performed By: #### C BCDF ####[id number] [place] [address] RBC (Bld) [#/Vol] 3.84 {x10E12/L} below low threshold See Below [facility] Work Phone: [phone] Comment on above: Reference Range: 4.0 0 - 5.20 WBC (Bld) [#/Vol] 4.0 10*3/uL below low threshold 4.4 - 11.3 [facility] Work Phone: Comment on above: Performed By: #### C BC ####[id number] [place] [address] Complete Blood Count + Differential 0.05 {x10E9/L} See Below [facility] Work Phone: Comment on above: Reference Range: 0.0 0 - 0.10 Complete Blood Count + Differential 0.24 {x10E9/L} See Below [facility] Work Phone: Comment on above: Reference Range: 0.0 0 - 0.70 Complete Blood Count + Differential 0.48 {x10E9/L} See Below [facility] Work Phone: Comment on above: Reference Range: 0.1 0 - 1.00 Complete Blood Count + Differential 1.83 {x10E9/L} See Below [facility] Work Phone: Comment on above: Reference Range: 1.2 0 - 4.80 Complete Blood Count + Differential 1.42 {x10E9/L} See Below [facility] Work Phone: Comment on above: Reference Range: 1.2 0 - 7.70 Complete Blood Count + Differential 6.0 % 0.0 - 6.0 [facility] Work Phone: Complete Blood Count + Differential 0.2 % 0.0 - 0.9 [facility] Work Phone: Comment on above: Immature Granulocyte Count (IG) includes promyelocytes, myelocytes and metamyelocytes but does not include bands. Percent differential counts (%) should be interpreted in the context of the absolute cell counts (cells/L). Complete Blood Count + Differential 0.0 {/100_WBC} 0.0-0.0 [facility] Work Phone: Coronavirus 2019 RNA by PCR, Screening Asymptomticon 04-15-2022 Coronavirus 2019 RNA by PCR, Screening Asymptomtic Not detected Normal See Below [facility] Work Phone: Comment on above: SOURCE: Nasal, Nasop haryngealReference Range: Not Detected.This test has received FDA Emergency Use Authorization (EUA) and has been verified by [facility] ([facility]). This test is only authorized for the duration of time that circumstances exist to justify the authorization of the emergency use of in vitro diagnostic tests for the detection of SARS-CoV-2 virus and/or diagnosis of COVID-19 infection under section 564(b)(1) of the Act, 21 U.S.C. 360bbb-3(b)(1), unless the authorization is terminated or revoked sooner. [facility] is certified under CLIA-88 as qualified to perform high complexity testing. Testing is performed in the [facility] located at [address] [place] [address].SARS-CoV-2/Flu/RSV Multiplex Test: Fact sheet for providers: https://www.fda.gov/media/283634/downloadFact sheet for patients: https://www.fda.gov/media/591407/download Covid 19 Resultson 2 SARS-CoV-2 (COVID-19) RNA MEAGAN+probe Ql (Unsp spec) NEGATIVE COVID-19 Test Coronaviruses are common world-wide and are the cause of many common colds. SARS-COV2 is a new coronavirus that began circulating worldwide in 2019 so we are calling it COVID-19. It has been estimated that four out of five patients with COVID-19 will recover at home without the need for medical attention. Symptoms of COVID-19 may include cough, fever, shortness of breath, loss of taste or smell and other flu-like symptoms including chills, sore muscles, sore throat, and headache. Severe illness is more common in older people and people with other health problems such as high blood pressure, obesity, and immune system problems. If the test is positive, you have COVID-19. You will be contacted by the ordering physicians office and instructed to remain on home isolation, in accordance with CDC guidelines. You may also be contacted by the [facility] to see if any of your close contacts may have been exposed to the virus and need to quarantine. If the test is negative, you likely do not have COVID-19 at this time, but you still may have a different illness that can spread to other people (like Influenza, or the Flu) and could still be at risk for getting COVID-19. We recommend that you stay away from other people to limit the spread of illness until your symptoms are improving and you are fever-free for 24 hours without the use of fever lowering medications such as acetaminophen or ibuprofen. No test is 100% accurate so if you are still concerned you may have COVID-19, talk to your doctor about the need to continue to stay away from others. Medicines Unless your provider told you not to use the following: Acetaminophen (Tylenol and others) is generally safe. Anti-inflammatory medications, such as Ibuprofen (Advil or Motrin) or Naproxen (Aleve) can also be used. Naqw-oua-ncvpfnq cough and cold medicines can be used according to the instructions on the package. Some gdtc-uby-dmjirqx medicines also contain acetaminophen. Make sure you are not taking more than your recommended dose. For those not hospitalized, there is no specific treatment available for this illness. Antibiotics do not treat Coronaviruses. Follow-Up Follow up with your doctor by scheduling a virtual visit or consider follow-up at one of our urgent care fever clinics. If you are having difficulty breathing, or are very weak and having difficulty standing, this is a medical emergency. Call 911 or have someone take you to the nearest emergency room immediately. If possible, wear a facemask. Additional guidance from the CDC for patients who tested POSITIVE for COVID-19 How to isolate: Isolate yourself in a specific room at home and limit your contact with others. Use a separate bathroom from other members of the household, when possible. Leave home only to get essential medical care. Do not go to work, school or public areas. Avoid using public transportation, ride-sharing, or taxis. Restrict contact with pets and other animals. If you must care for your pet or be around animals while you are sick, wash your hands before and after your interaction and wear a facemask. Make sure that shared spaces in the home have good airflow, such as by an air conditioner or an opened window, weather permitting. Personal Hygiene Procedures: Wear a face mask when in the same room as other people or pets. If a face mask interferes with your breathing, others should wear a mask when sharing space with you. Frequent hand-washing: wash your hands with soap and water for at least 20 seconds. If soap and water are not available, use alcohol-based hand brush sander. Avoid touching your eyes, nose, and mouth with unwashed hands. Household Hygiene Procedures: Avoid sharing personal household items such as dishes, glassware, cups, eating utensils, towels or bedding with other people or pets in your home. After use, these items should be washed with soap and hot water. Disinfect all high-touch surfaces every day with antibacterial cleaning solutions such as Lysol wipes, bleach, cleansers, etc. High-touch surfaces include tabletops, doorknobs, bathroom fixtures, toilets, phones, keyboards, tablets and bedside tables. Immediately clean any surfaces that may have blood, poop or body fluids on them, using antibacterial cleaning solutions such as Lysol wipes, bleach, cleansers, etc. If clothing or bedding come into contact with blood, poop or body fluids, they should be washed immediately. Follow the directions on the laundry detergent and clothing labels but hot water is recommended when possible. Stopping home isolation precautions: If possible, consult your doctor before stopping home isolation precautions. According to the CDC, you can discontinue home isolation precautions when you have met both of these criteria: Your fever and respiratory symptoms have been gone for 24 gideon (more content not included)... Normal [facility] Daily Progress Note-Surgeryo n 04-15-2022 Daily Progress Note-Surgery Service: Surgery Subjective Data: MELINA DÍAZ is a 46 year old Female who is Hospital Day # 5. Patient continued to report dysphagia and nausea. Objective Data: Objective Information: T PRBPMAPSpO2 [id number]/6897% Date/Time04/15 4: 5: 4: 5: 4:20 Range(36.4C - 37.5C ) (57 - 79 ) (16 - 19 ) (96 - 105 )/ (56 - 72 ) (95% - 100% ) Highest temp of 37.5 C was recorded at 04/14 4:12 Pain reported at 04/14 18:31: 8 = Severe Physical Exam Narrative: Physical Exam: Constitutional: Well developed, awake/alert/oriented x3, no distress, alert and cooperative Eyes: PERRL, EOMI, clear sclera ENMT: mucous membranes moist, no apparent injury, no lesions seen Head/Neck: Neck supple, no apparent injury, trachea midline Respiratory/Thorax: Nonlabored breathing on RA Cardiovascular: Regular rate and rhythm on peripheral pulse Gastrointestinal: Nondistended, soft, RLQ tenderness, no rebound tenderness or guarding, no masses palpable Musculoskeletal: CARRENO Extremities: normal extremities, no cyanosis edema, contusions or wounds, no clubbing radial pulse 2+ b/l Psychological: Appropriate mood and behavior Skin: Warm and dry, no lesions, no rashes Medication: Medications: Continuous Medications ------ 1. Dextrose 5% - NaCL 0.45% Infusion: 1000 mL IntraVenous Scheduled Medications ------ 1. Acetaminophen Oral Liquid: 650 mg Oral Every 6 Hours 2. Enoxaparin SubCutaneous: 40 mg SubCutaneous Every 24 Hours 3. Levothyroxine: 50 microgram(s) Oral Daily 4. Methocarbamol Injectable: 500 mg IntraVenous Push Every 8 Hours 5. Pantoprazole Injectable: 40 mg IntraVenous Push Every 12 Hours 6. Sucralfate Oral Liquid: 1 gram(s) Oral 4 Times a Day PRN Medications ------ 1. diphenhydrAMINE Injectable: 25 mg IntraVenous Push Every 4 Hours 2. HYDROmorphone Injectable: 0.4 mg IntraVenous Push Every 4 Hours 3. Ondansetron Injectable: 4 mg IntraVenous Push Every 6 Hours 4. oxyCODONE Oral Liquid: 5 mg Oral Every 6 Hours 5. Promethazine IV Piggy Back: 25 mg IntraVenous Piggyback Every 6 Hours Assessment and Plan: Code Status: Code StatusFull Code Assessment: Pt is 46 yo F s/p sleeve gastrectomy w/ revision RYGB and HHR by Dr. 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 No significant changes to previous plan, anticipating need for EGD w/ dilation/ Plan: - CLD - IVF, daily RFP replete electrolytes PRN - PPI - carafate - lovenox dvt ppx - likely EGD with possible dilation tomorrow Attestation: Note Completion: I am a: Resident/Fellow Attending AttestationI saw and evaluated the patient. I personally obtained the frost and critical portions of the history and physical exam or was physically present for frost and critical portions performed by the resident/fellow. I reviewed the resident/fellows documentation and discussed the patient with the resident/fellow. I agree with the resident/fellows medical decision making as documented in the note. I personally evaluated the patient [id number] Electronic Signatures: Zhane Gong) (Signed 28-Apr-2022 06:57) Authored: Note Completion Co-Signer: Service, Subjective Data, Objective Data, Assessment and Plan, Note Completion Lukasz Mcclain (Resident)) (Signed 15-Apr-2022 07:56) Authored: Service, Subjective Data, Objective Data, Assessment and Plan, Note Completion Last Updated: 28-Apr-2022 06:57 by Zhane Gong) Normal [facility] Electrocardiogram 12 Leadon 04-15-2022 Electrocardiogram 12 Lead Ventricular Rate 63 Atrial Rate 63 P-R Interval 184 QRS Duration 86 Q-T Interval 460 QTC Calculation(Bazett) 470 P Inlet 50 R Inlet 44 T Inlet 24 QRS Count 11 Q Onset 215 P Onset 123 P Offset 182 T Offset 445 QTC Fredericia 467 Diagnosis Class Normal Diagnosis Normal sinus rhythm Normal ECG Confirmed by Pritesh Blandon ([id number]) on 04/17/2022 10:26:16 AM Normal [facility] Electrocardiogram 12 Lead Ventricular Rate 57 Atrial Rate 57 P-R Interval 186 QRS Duration 86 Q-T Interval 440 QTC Calculation(Bazett) 428 P Inlet 55 R Inlet 44 T Inlet 30 QRS Count 9 Q Onset 216 P Onset 123 P Offset 178 T Offset 436 QTC Fredericia 432 Diagnosis Class Borderline Abnormal Diagnosis * pediatric ECG analysys * Sinus bradycardia with 1st degree A-V block Low voltage QRS, consider pulmonary disease, pericardial effusion, or normal variant No previous ECGs available Confirmed by Pritesh Blandon ([id number]) on 04/17/2022 10:25:48 AM Normal [facility] MAGNESIUMon 04-15-2022 Magnesium [Mass/Vol] 2.14 mg/dL Normal 1.60 - 2.40 [facility] Comment on above: Performed By: #### M G ####[id number] [place] [address] Magnesium, Serumon 2 Magnesium [Mass/Vol] 2.14 mg/dL See Below [facility] Work Phone: Comment on above: Reference Range: 1.6 0 - 2.40 RENAL FUNCTION PANELon 04-15 Albumin [Mass/Vol] 3.2 g/dL Low 3.4 - 5.0 [facility] Comment on above: Performed By: #### R ENAL ####[id number] [place] [address] Anion gap [Moles/Vol] 12 mmol/L Normal 10 - 20 [facility] Comment on above: Performed By: #### R ENAL ####[id number] [place] [address] Calcium [Mass/Vol] 8.1 mg/dL Low 8.6 - 10.6 [facility] Comment on above: Performed By: #### R ENAL ####[id number] [place] [address] Chloride [Moles/Vol] 109 mmol/L High 98 - 107 [facility] Comment on above: Performed By: #### R ENAL ####[id number] [place] [address] Creatinine [Mass/Vol] 0.63 mg/dL Normal 0.50 - 1.05 [facility] Comment on above: Performed By: #### R ENAL ####[id number] [place] [address] eGFR FEMALE >90 Normal >90 [facility] Comment on above: Result Comment: CALC ULATIONS OF ESTIMATED GFR ARE PERFORMED USING THE 2020 CKD-EPI STUDY REFIT EQUATION WITHOUT THE RACE VARIABLE FOR THE IDMS-TRACEABLE CREATININE METHODS. https://jasn.asnjournals.org/content//ASN.671846 9935 Performed By: #### R ENAL ####[id number] [place] [address] Glucose [Mass/Vol] 81 mg/dL Normal 74 - 99 [facility] Comment on above: Performed By: #### R ENAL ####[id number] [place] [address] HCO3 (Bld) [Moles/Vol] 25 mmol/L Normal 21 - 32 [facility] Comment on above: Performed By: #### R ENAL ####[id number] [place] [address] Phosphate [Mass/Vol] 4.7 mg/dL Normal 2.5 - 4.9 [facility] Comment on above: Result Comment: The performance characteristics of phosphorus testing in heparinized plasma have been validated by the individual laboratory site where testing is performed. Testing on heparinized plasma is not approved by the FDA; however, such approval is not necessary. Performed By: #### R ENAL ####[id number] [place] [address] Potassium [Moles/Vol] 4.1 mmol/L Normal 3.5 - 5.3 [facility] Comment on above: Performed By: #### R ENAL ####[id number] [place] [address] Sodium [Moles/Vol] 142 mmol/L Normal 136 - 145 [facility] Comment on above: Performed By: #### R ENAL ####[id number] [place] [address] Urea nitrogen [Mass/Vol] 5 mg/dL Low 6 - 23 [facility] Comment on above: Performed By: #### R ENAL ####[id number] [place] [address] Renal Function Panelon 04-15 Albumin BCP dye [Mass/Vol] 3.2 g/dL below low threshold 3.4 - 5.0 [facility] Work Phone: Anion gap [Moles/Vol] 12 mmol/L 10 - 20 [facility] Work Phone: Calcium [Mass/Vol] 8.1 mg/dL below low threshold 8.6 - 10.6 [facility] Work Phone: Chloride [Moles/Vol] 109 mmol/L above high threshold 98 - 107 [facility] Work Phone: CO2 [Moles/Vol] 25 mmol/L 21 - 32 [facility] Work Phone: Creatinine [Mass/Vol] 0.63 mg/dL See Below [facility] Work Phone: Comment on above: Reference Range: 0.5 0 - 1.05 Glucose [Mass/Vol] 81 mg/dL 74 - 99 [facility] Work Phone: Phosphate [Mass/Vol] 4.7 mg/dL 2.5 - 4.9 [facility] Work Phone: Comment on above: The performance ciara acteristics of phosphorus testing in heparinized plasma have been validated by the individual laboratory site where testing is performed. Testing on heparinized plasma is not approved by the FDA; however, such approval is not necessary. Potassium [Moles/Vol] 4.1 mmol/L 3.5 - 5.3 [facility] Work Phone: Sodium [Moles/Vol] 142 mmol/L 136 - 145 [facility] Work Phone: Urea nitrogen [Mass/Vol] 5 mg/dL below low threshold 6 - 23 [facility] Work Phone: Renal Function Panel >90 >90 [facility] Work Phone: Comment on above: CALCULATIONS OF RANDY MATED GFR ARE PERFORMED USING THE 2020 CKD-EPI STUDY REFIT EQUATION WITHOUT THE RACE VARIABLE FOR THE IDMS-TRACEABLE CREATININE METHODS.https://jasn.asnjournals.org/content/early/ N.1918972064 CBC AND DIFFERENTIALon 04-14 % AUTOMATED IMMATURE GRAN 0.0 % Normal 0.0 - 0.9 [facility] Comment on above: Result Comment: Yanni ture Granulocyte Count (IG) includes promyelocytes, myelocytes and metamyelocytes but does not include bands. Percent differential counts (%) should be interpreted in the context of the absolute cell counts (cells/L). Performed By: #### C BC #### [facility] [address] [place] [address] Basophils (Bld) [#/Vol] 0.04 10*3/uL Normal 0.00 - 0.10 [facility] Comment on above: Performed By: #### C BC #### [facility] [address] [place] [address] Basophils/100 WBC (Bld) 1.1 % Normal 0.0 - 2.0 [facility] Comment on above: Performed By: #### C BC #### [facility] [address] [place] [address] Eosinophils (Bld) [#/Vol] 0.15 10*3/uL Normal 0.00 - 0.70 [facility] Comment on above: Performed By: #### C BC #### [facility] [address] [place] [address] Eosinophils/100 WBC (Bld) 4.3 % Normal 0.0 - 6.0 [facility] Comment on above: Performed By: #### C BC #### [facility] [address] [place] [address] Erythrocyte distribution width (RBC) [Ratio] 15.4 % High 11.5 - 14.5 [facility] Comment on above: Performed By: #### C BC #### [facility] [address] [place] [address] Hematocrit (Bld) [Volume fraction] 36.5 % Normal 36.0 - 46.0 [facility] Comment on above: Performed By: #### C BC #### [facility] [address] [place] [address] Hemoglobin (Bld) [Mass/Vol] 11.3 g/dL Low 12.0 - 16.0 [facility] Comment on above: Performed By: #### C BC #### [facility] [address] [place] [address] Lymphocytes (Bld) [#/Vol] 1.62 10*3/uL Normal 1.20 - 4.80 [facility] Comment on above: Performed By: #### C BC #### [facility] [address] [place] [address] Lymphocytes/100 WBC (Bld) 46.2 % Normal 13.0 - 44.0 [facility] Comment on above: Performed By: #### C BC #### [facility] [address] [place] [address] MCHC (RBC) [Mass/Vol] 31.0 g/dL Low 32.0 - 36.0 [facility] Comment on above: Performed By: #### C BC #### [facility] [address] [place] [address] MCV (RBC) [Entitic vol] 96 fL Normal 80 - 100 [facility] Comment on above: Performed By: #### C BC #### [facility] [address] [place] [address] Monocytes (Bld) [#/Vol] 0.40 10*3/uL Normal 0.10 - 1.00 [facility] Comment on above: Performed By: #### C BC #### [facility] [address] [place] [address] Monocytes/100 WBC (Bld) 11.4 % Normal 2.0 - 10.0 [facility] Comment on above: Performed By: #### C BC #### [facility] [address] [place] [address] Neutrophils (Bld) [#/Vol] 1.30 10*3/uL Normal 1.20 - 7.70 [facility] Comment on above: Performed By: #### C BC #### [facility] [address] [place] [address] Neutrophils/100 WBC (Bld) 37.0 % Normal 40.0 - 80.0 [facility] Comment on above: Performed By: #### C BC #### [facility] [address] [place] [address] NUCLEATED RBC 0.0 /100 WBC Normal 0.0-0.0 [facility] Comment on above: Performed By: #### C BC #### [facility] [address] [place] [address] Platelets (Bld) [#/Vol] 198 10*3/uL Normal 150 - 450 [facility] Comment on above: Performed By: #### C BC #### [facility] [address] [place] [address] RBC 3.81 x10E12/L Low 4.00 - 5.20 [facility] Comment on above: Performed By: #### C BC #### [facility] [address] [place] [address] WBC (Bld) [#/Vol] 3.5 10*3/uL Low 4.4 - 11.3 [facility] Comment on above: Performed By: #### C BC #### [facility] [address] [place] [address] Complete Blood Count + Diffe rentialon 04-14-2022 Basophils/100 WBC (Bld) 1.1 % 0.0 - 2.0 [facility] Work Phone: Erythrocyte distribution width (RBC) [Ratio] 15.4 % above high threshold See Below [facility] Work Phone: Comment on above: Reference Range: 11. 5 - 14.5 Hematocrit (Bld) [Volume fraction] 36.5 % See Below [facility] Work Phone: Comment on above: Reference Range: 36. 0 - 46.0 Hemoglobin (Bld) [Mass/Vol] 11.3 g/dL below low threshold See Below [facility] Work Phone: Comment on above: Reference Range: 12. 0 - 16.0 Lymphocytes/100 WBC (Bld) 46.2 % See Below [facility] Work Phone: Comment on above: Reference Range: 13. 0 - 44.0 MCHC (RBC) [Mass/Vol] 31.0 g/dL below low threshold See Below [facility] Work Phone: [phone] Comment on above: Reference Range: 32. 0 - 36.0 MCV (RBC) [Entitic vol] 96 fL 80 - 100 [facility] Work Phone: [phone] Monocytes/100 WBC (Bld) 11.4 % 2.0 - 10.0 [facility] Work Phone: [phone] Neutrophils/100 WBC (Bld) 37.0 % See Below [facility] Work Phone: [phone] Comment on above: Reference Range: 40. 0 - 80.0 Platelets (Bld) [#/Vol] 198 10*3/uL 150 - 450 [facility] Work Phone: [phone] RBC (Bld) [#/Vol] 3.81 {x10E12/L} below low threshold See Below [facility] Work Phone: [phone] Comment on above: Reference Range: 4.0 0 - 5.20 WBC (Bld) [#/Vol] 3.5 10*3/uL below low threshold 4.4 - 11.3 [facility] Work Phone: [phone] Complete Blood Count + Differential 0.04 {x10E9/L} See Below [facility] Work Phone: [phone] Comment on above: Reference Range: 0.0 0 - 0.10 Complete Blood Count + Differential 0.15 {x10E9/L} See Below [facility] Work Phone: [phone] Comment on above: Reference Range: 0.0 0 - 0.70 Complete Blood Count + Differential 0.40 {x10E9/L} See Below [facility] Work Phone: [phone] Comment on above: Reference Range: 0.1 0 - 1.00 Complete Blood Count + Differential 1.62 {x10E9/L} See Below [facility] Work Phone: [phone] Comment on above: Reference Range: 1.2 0 - 4.80 Complete Blood Count + Differential 1.30 {x10E9/L} See Below [facility] Work Phone: [phone] Comment on above: Reference Range: 1.2 0 - 7.70 Complete Blood Count + Differential 4.3 % 0.0 - 6.0 [facility] Work Phone: Complete Blood Count + Differential 0.0 % 0.0 - 0.9 [facility] Work Phone: Comment on above: Immature Granulocyte Count (IG) includes promyelocytes, myelocytes and metamyelocytes but does not include bands. Percent differential counts (%) should be interpreted in the context of the absolute cell counts (cells/L). Complete Blood Count + Differential 0.0 {/100_WBC} 0.0-0.0 [facility] Work Phone: Daily Progress Note-Surgeryo n 04-14-2022 Daily Progress Note-Surgery Service: Surgery Subjective Data: MELINA DÍAZ is a 46 year old Female who is Hospital Day # 4. NAEO, tolerating small volume PO. Objective Data: Objective Information: T PRBPMAPSpO2 [id number]/5695% Date/Time04/14 4:128 4:128 4:128 4:128 4:12 Range(36C - 37.5C ) (57 - 79 ) (17 - 18 ) (93 - 100 )/ (50 - 66 ) (93% - 99% ) Highest temp of 37.5 C was recorded at 04/14 4:12 Pain reported at 04/13 22:47: 7 = Severe Physical Exam Narrative: Physical Exam: Constitutional: Well developed, awake/alert/oriented x3, no distress, alert and cooperative Eyes: PERRL, EOMI, clear sclera ENMT: mucous membranes moist, no apparent injury, no lesions seen Head/Neck: Neck supple, no apparent injury, trachea midline Respiratory/Thorax: Nonlabored breathing on RA Cardiovascular: Regular rate and rhythm on peripheral pulse Gastrointestinal: Nondistended, soft, RLQ tenderness, no rebound tenderness or guarding, no masses palpable Musculoskeletal: CARRENO Extremities: normal extremities, no cyanosis edema, contusions or wounds, no clubbing radial pulse 2+ b/l Psychological: Appropriate mood and behavior Skin: Warm and dry, no lesions, no rashes Medication: Medications: Continuous Medications ------ 1. Dextrose 5% - NaCL 0.45% Infusion: 1000 mL IntraVenous Scheduled Medications ------ 1. Acetaminophen Oral Liquid: 650 mg Oral Every 6 Hours 2. Enoxaparin SubCutaneous: 40 mg SubCutaneous Every 24 Hours 3. Levothyroxine: 50 microgram(s) Oral Daily 4. Methocarbamol Injectable: 500 mg IntraVenous Push Every 8 Hours 5. Pantoprazole Injectable: 40 mg IntraVenous Push Every 12 Hours 6. Sucralfate Oral Liquid: 1 gram(s) Oral 4 Times a Day PRN Medications ------ 1. diphenhydrAMINE Injectable: 25 mg IntraVenous Push Every 4 Hours 2. HYDROmorphone Injectable: 0.4 mg IntraVenous Push Every 4 Hours 3. Ondansetron Injectable: 4 mg IntraVenous Push Every 6 Hours 4. oxyCODONE Oral Liquid: 5 mg Oral Every 6 Hours Recent Lab Results: Results: I have reviewed these laboratory results: Complete Blood Count + Differential 13-Apr-2022 05:44:00 ResultValue White Blood Cell Count 4.5 Nucleated Erythrocyte Count 0.0 Red Blood Cell Count 3.98 L HGB 11.6 L HCT 38.0 MCV 95 MCHC 30.5 L PLT 207 RDW-CV 15.1 H Neutrophil % 40.4 Immature Granulocytes % 0.0 Lymphocyte % 43.8 Monocyte % 9.9 Eosinophil % 4.6 Basophil % 1.3 Neutrophil Count 1.83 Lymphocyte Count 1.99 Monocyte Count 0.45 Eosinophil Count 0.21 Basophil Count 0.06 Renal Function Panel 13-Apr-2022 05:44:00 ResultValue Glucose, Serum 74 NA 140 K 4.1 CL 109 H Bicarbonate, Serum 26 Anion Gap, Serum 9 L BUN 3 L CREAT 0.57 GFR Female >90 Calcium, Serum 8.5 L Phosphorus, Serum 4.7 ALB 3.2 L Magnesium, Serum 13-Apr-2022 05:44:00 ResultValue Magnesium, Serum 2.38 Assessment and Plan: Comorbidities: Comorbidityanemia AnemiaFluid dilution Code Status: Code StatusFull Code Assessment: Pt is 46 yo F s/p sleeve gastrectomy w/ revision RYGB and HHR by Dr. 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 No significant changes to previous plan, anticipating need for EGD w/ dilation/ Plan: - CLD - IVF, daily RFP replete electrolytes PRN - PPI - carafate - lovenox dvt ppx - likely EGD with possible dilation as outpatient Plan has been discussed with Dr. Bose Attestation: Note Completion: I am a: Resident/Fellow Attending AttestationI reviewed the resident/fellows documentation and discussed the patient with the resident/fellow. I agree with the resident/fellows medical decision making as documented in the note. Electronic Signatures: Brittany Bose) (Signed 16-Apr-2022 15:08) Authored: Note Completion Co-Signer: Service, Subjective Data, Objective Data, Assessment and Plan, Note Completion Rene Garcia (Resident)) (Signed 14-Apr-2022 07:08) Authored: Service, Subjective Data, Objective Data, Assessment and Plan, Note Completion Last Updated: 16-Apr-2022 15:08 by Brittany Bose) Normal [facility] MAGNESIUMon 04-14-2022 Magnesium [Mass/Vol] 1.91 mg/dL Normal 1.60 - 2.40 [facility] Comment on above: Performed By: #### C BC #### [facility] [address] [address] Magnesium, Serumon 2 Magnesium [Mass/Vol] 1.91 mg/dL See Below [facility] Work Phone: Comment on above: Reference Range: 1.6 0 - 2.40 No Panel Informationon 04-14 [email or web address] ?RetrieveTestByDateTime?Pa [email or web address]=[id number]&Date=&Time=23%3a31%3a41% 3a00&TestType=ECG&Site=1&O utputType=PDF&Ext=PDF DQ-Qkdtsil-Xx rma [facility] Work Phone: Normal sinus rhythm [facility]-[place] rgery-Pa rma [facility] Work Phone: Normal KR-Sgrzxtu-Kl rma [facility] Work Phone: [phone] EE-Pdjhyaq-Hc rma [facility] Work Phone: [phone] JM-Ccsebix-Hc rma [facility] Work Phone: [phone] HI-Wtgdyph-Ug rma [facility] Work Phone: [phone] FB-Rhorlzf-Nq rma [facility] Work Phone: [phone] FO-Aksydxp-Rb rma [facility] Work Phone: [phone] TJ-Cyhfnse-Um rma [facility] Work Phone: [phone] OJ-Eimamse-Es rma [facility] Work Phone: [phone] AU-Bdagiif-Cn rma [facility] Work Phone: [phone] FZ-Wkvviwj-Wx rma [facility] Work Phone: [phone] PF-Jlqhrcw-Xm rma [facility] Work Phone: [phone] RO-Mmoomvp-Kf rma [facility] Work Phone: [phone] MI-Invbfxj-Ri rma [facility] Work Phone: [phone] ZI-Kxyifgj-Ke rma [facility] Work Phone: [phone] QY-Wpfaetq-Ct rma [facility] Work Phone: [email or web address] ?RetrieveTestByDateTime?Pa zywsuUY=[id number]&Date=&Time=23%3a30%3a56% 3a00&TestType=ECG&Site=1&O utputType=PDF&Ext=PDF HZ-Vffiyrz-Iq rma [facility] Work Phone: * pediat jeff ECG analysys * YQ-Lkggsji-Qf rma [facility] Work Phone: Borderline Abnormal [facility] [facility]Pa r[facility] Work Phone: [phone] CH-Cjwfmkz-Ab rma [facility] Work Phone: [phone] SO-Gsrqtnt-In rma [facility] Work Phone: [phone] HG-Nczmzvm-Hb rma [facility] Work Phone: [phone] DJ-Vadovqm-Ho rma [facility] Work Phone: [phone] QL-Ecbhcie-Ey rma [facility] Work Phone: [phone] FQ-Szcsmjb-Yr rma [facility] Work Phone: [phone] KK-Yscpvae-Fq rma [facility] Work Phone: [phone] ZT-Azjhsox-Nv rma [facility] Work Phone: [phone] YP-Bqcnibq-Xi rma [facility] Work Phone: [phone] QF-Gjbxzss-Od rma [facility] Work Phone: [phone] JZ-Sigtvaw-Ub rma [facility] Work Phone: [phone] KU-Nwxzazz-Nk rma [facility] Work Phone: [phone] CA-Fdvzryu-Uz rma [facility] Work Phone: [phone] IB-Emhebat-Dc rma [facility] Work Phone: RENAL FUNCTION PANELon 04-14 Albumin [Mass/Vol] 3.0 g/dL Low 3.4 - 5.0 [facility] Comment on above: Performed By: #### R ENAL #### [facility] [address] [address] Anion gap [Moles/Vol] 12 mmol/L Normal 10 - 20 [facility] Comment on above: Performed By: #### R ENAL #### [facility] [address] [place] [address] Calcium [Mass/Vol] 8.1 mg/dL Low 8.6 - 10.6 [facility] Comment on above: Performed By: #### R ENAL #### [facility] [address] [place] [address] Chloride [Moles/Vol] 108 mmol/L High 98 - 107 [facility] Comment on above: Performed By: #### R ENAL #### [facility] [address] [place] [address] Creatinine [Mass/Vol] 0.57 mg/dL Normal 0.50 - 1.05 [facility] Comment on above: Performed By: #### R ENAL #### [facility] [address] [place] [address] eGFR FEMALE >90 Normal >90 [facility] Comment on above: Result Comment: CALC ULATIONS OF ESTIMATED GFR ARE PERFORMED USING THE 2020 CKD-EPI STUDY REFIT EQUATION WITHOUT THE RACE VARIABLE FOR THE IDMS-TRACEABLE CREATININE METHODS. https://jasn.asnjournals.org/content/early//ASN.168845 9746 Performed By: #### R ENAL #### [facility] [address] [place] [address] Glucose [Mass/Vol] 75 mg/dL Normal 74 - 99 [facility] Comment on above: Performed By: #### R ENAL #### [place] [address] [place] [address] HCO3 (Bld) [Moles/Vol] 25 mmol/L Normal 21 - 32 [facility] Comment on above: Performed By: #### R ENAL #### [facility] [address] [place] [address] Phosphate [Mass/Vol] 4.7 mg/dL Normal 2.5 - 4.9 [facility] Comment on above: Result Comment: The performance characteristics of phosphorus testing in heparinized plasma have been validated by the individual laboratory site where testing is performed. Testing on heparinized plasma is not approved by the FDA; however, such approval is not necessary. Performed By: #### R ENAL #### [facility] [address] [place] [address] Potassium [Moles/Vol] 4.1 mmol/L Normal 3.5 - 5.3 [facility] Comment on above: Performed By: #### R ENAL #### [facility] [address] [place] [address] Sodium [Moles/Vol] 141 mmol/L Normal 136 - 145 [facility] Comment on above: Performed By: #### R ENAL #### [facility] [address] [place] [address] Urea nitrogen [Mass/Vol] 5 mg/dL Low 6 - 23 [facility] Comment on above: Performed By: #### R ENAL #### [facility] [address] [place] [address] Renal Function Panelon 04-14 Albumin BCP dye [Mass/Vol] 3.0 g/dL below low threshold 3.4 - 5.0 [facility] Work Phone: Anion gap [Moles/Vol] 12 mmol/L 10 - 20 [facility] Work Phone: [phone] Calcium [Mass/Vol] 8.1 mg/dL below low threshold 8.6 - 10.6 [facility] Work Phone: [phone] Chloride [Moles/Vol] 108 mmol/L above high threshold 98 - 107 [facility] Work Phone: [phone] CO2 [Moles/Vol] 25 mmol/L 21 - 32 [facility] Work Phone: Creatinine [Mass/Vol] 0.57 mg/dL See Below [facility] Work Phone: Comment on above: Reference Range: 0.5 0 - 1.05 Glucose [Mass/Vol] 75 mg/dL 74 - 99 [facility] Work Phone: Phosphate [Mass/Vol] 4.7 mg/dL 2.5 - 4.9 [facility] Work Phone: Comment on above: The performance ciara acteristics of phosphorus testing in heparinized plasma have been validated by the individual laboratory site where testing is performed. Testing on heparinized plasma is not approved by the FDA; however, such approval is not necessary. Potassium [Moles/Vol] 4.1 mmol/L 3.5 - 5.3 [facility] Work Phone: Sodium [Moles/Vol] 141 mmol/L 136 - 145 [facility] Work Phone: Urea nitrogen [Mass/Vol] 5 mg/dL below low threshold 6 - 23 [facility] Work Phone: Renal Function Panel >90 >90 [facility] Work Phone: Comment on above: CALCULATIONS OF RANDY MATED GFR ARE PERFORMED USING THE 2020 CKD-EPI STUDY REFIT EQUATION WITHOUT THE RACE VARIABLE FOR THE IDMS-TRACEABLE CREATININE METHODS.https://jasn.asnjournals.org/content/early// N.6470966501 CBC AND DIFFERENTIALon 04-13 % AUTOMATED IMMATURE GRAN 0.0 % Normal 0.0 - 0.9 [facility] Comment on above: Result Comment: Yanni ture Granulocyte Count (IG) includes promyelocytes, myelocytes and metamyelocytes but does not include bands. Percent differential counts (%) should be interpreted in the context of the absolute cell counts (cells/L). Performed By: #### R ENAL #### [facility] [address] [place] [address] Basophils (Bld) [#/Vol] 0.06 10*3/uL Normal 0.00 - 0.10 [facility] Comment on above: Performed By: #### R ENAL #### [facility] [address] [place] [address] Basophils/100 WBC (Bld) 1.3 % Normal 0.0 - 2.0 [facility] Comment on above: Performed By: #### R ENAL #### [facility] [address] [place] [address] Eosinophils (Bld) [#/Vol] 0.21 10*3/uL Normal 0.00 - 0.70 [facility] Comment on above: Performed By: #### R ENAL #### [facility] [address] [place] [address] Eosinophils/100 WBC (Bld) 4.6 % Normal 0.0 - 6.0 [facility] Comment on above: Performed By: #### R ENAL #### [facility] [address] [place] [address] Erythrocyte distribution width (RBC) [Ratio] 15.1 % High 11.5 - 14.5 [facility] Comment on above: Performed By: #### R ENAL #### [facility] [address] [place] [address] Hematocrit (Bld) [Volume fraction] 38.0 % Normal 36.0 - 46.0 [facility] Comment on above: Performed By: #### R ENAL #### [facility] [address] [place] [address] Hemoglobin (Bld) [Mass/Vol] 11.6 g/dL Low 12.0 - 16.0 [facility] Comment on above: Performed By: #### R ENAL #### [facility] [address] [place] [address] Lymphocytes (Bld) [#/Vol] 1.99 10*3/uL Normal 1.20 - 4.80 [facility] Comment on above: Performed By: #### R ENAL #### [facility] [address] [place] [address] Lymphocytes/100 WBC (Bld) 43.8 % Normal 13.0 - 44.0 [facility] Comment on above: Performed By: #### R ENAL #### [facility] [address] [place] [address] MCHC (RBC) [Mass/Vol] 30.5 g/dL Low 32.0 - 36.0 [facility] Comment on above: Performed By: #### R ENAL #### [facility] [address] [place] [address] MCV (RBC) [Entitic vol] 95 fL Normal 80 - 100 [facility] Comment on above: Performed By: #### R ENAL #### [facility] [address] [place] [address] Monocytes (Bld) [#/Vol] 0.45 10*3/uL Normal 0.10 - 1.00 [facility] Comment on above: Performed By: #### R ENAL #### [facility] [address] [place] [address] Monocytes/100 WBC (Bld) 9.9 % Normal 2.0 - 10.0 [facility] Comment on above: Performed By: #### R ENAL #### [facility] [address] [place] [address] Neutrophils (Bld) [#/Vol] 1.83 10*3/uL Normal 1.20 - 7.70 [facility] Comment on above: Performed By: #### R ENAL #### [facility] [address] [place] [address] Neutrophils/100 WBC (Bld) 40.4 % Normal 40.0 - 80.0 [facility] Comment on above: Performed By: #### R ENAL #### [facility] [address] [place] [address] NUCLEATED RBC 0.0 /100 WBC Normal 0.0-0.0 [facility] Comment on above: Performed By: #### R ENAL #### [facility] [address] [place] [address] Platelets (Bld) [#/Vol] 207 10*3/uL Normal 150 - 450 [facility] Comment on above: Performed By: #### R ENAL #### [facility] [address] [place] [address] RBC 3.98 x10E12/L Low 4.00 - 5.20 [facility] Comment on above: Performed By: #### R ENAL #### [facility] [address] [place] [address] WBC (Bld) [#/Vol] 4.5 10*3/uL Normal 4.4 - 11.3 [facility] Comment on above: Performed By: #### R ENAL #### [facility] [address] [place] [address] COMPREHENSIVE PANELon 2021 ALBUMIN Canceled Normal [facility] Comment on above: Order Comment: TEST COMPREHENSIVE PANEL WAS CANCELLED, 04/13/2022 15:00 DUPLICATE ORDER see#[id number]. Performed By: #### R ENAL #### [facility] [address] [place] [address] ALKALINE PHOSPHATASE Canceled Normal [facility] Comment on above: Order Comment: TEST COMPREHENSIVE PANEL WAS CANCELLED, 04/13/2022 15:00 DUPLICATE ORDER see#[id number]. Performed By: #### R ENAL #### [facility] [address] [place] [address] ALT Canceled Normal [facility] Comment on above: Order Comment: TEST COMPREHENSIVE PANEL WAS CANCELLED, 04/13/2022 15:00 DUPLICATE ORDER see#[id number]. Result Comment: Donita ents treated with Sulfasalazine may generate falsely decreased results for ALT. Performed By: #### R ENAL #### [facility] [address] [place] [address] ANION GAP Canceled Normal [facility] Comment on above: Order Comment: TEST COMPREHENSIVE PANEL WAS CANCELLED, 04/13/2022 15:00 DUPLICATE ORDER see#[id number]. Performed By: #### R ENAL #### [facility] [address] [place] [address] AST Canceled Normal [facility] Comment on above: Order Comment: TEST COMPREHENSIVE PANEL WAS CANCELLED, 04/13/2022 15:00 DUPLICATE ORDER see#[id number]. Performed By: #### R ENAL #### [facility] [address] [place] [address] BICARBONATE Canceled Normal [facility] Comment on above: Order Comment: TEST COMPREHENSIVE PANEL WAS CANCELLED, 04/13/2022 15:00 DUPLICATE ORDER see#[id number]. Performed By: #### R ENAL #### [facility] [address] [place] [address] BILIRUBIN,TOTAL Canceled Normal [facility] Comment on above: Order Comment: TEST COMPREHENSIVE PANEL WAS CANCELLED, 04/13/2022 15:00 DUPLICATE ORDER see#[id number]. Performed By: #### R ENAL #### [facility] [address] [place] [address] CALCIUM Canceled Normal [facility] Comment on above: Order Comment: TEST COMPREHENSIVE PANEL WAS CANCELLED, 04/13/2022 15:00 DUPLICATE ORDER see#[id number]. Performed By: #### R ENAL #### [facility] [address] [place] [address] CHLORIDE Canceled Normal [facility] Comment on above: Order Comment: TEST COMPREHENSIVE PANEL WAS CANCELLED, 04/13/2022 15:00 DUPLICATE ORDER see#[id number]. Performed By: #### R ENAL #### [facility] [address] [place] [address] CREATININE Canceled Normal [facility] Comment on above: Order Comment: TEST COMPREHENSIVE PANEL WAS CANCELLED, 04/13/2022 15:00 DUPLICATE ORDER see#[id number]. Performed By: #### R ENAL #### [facility] [address] [place] [address] eGFR FEMALE Canceled Normal [facility] Comment on above: Order Comment: TEST COMPREHENSIVE PANEL WAS CANCELLED, 04/13/2022 15:00 DUPLICATE ORDER see#[id number]. Result Comment: CALC ULATIONS OF ESTIMATED GFR ARE PERFORMED USING THE 2020 CKD-EPI STUDY REFIT EQUATION WITHOUT THE RACE VARIABLE FOR THE IDMS-TRACEABLE CREATININE METHODS. https://jasn.asnjournals.org/content/early//ASN.483409 3096 Performed By: #### R ENAL #### [facility] [address] [place] [address] eGFR MALE Canceled Normal [facility] Comment on above: Order Comment: TEST COMPREHENSIVE PANEL WAS CANCELLED, 04/13/2022 15:00 DUPLICATE ORDER see#[id number]. Result Comment: CALC ULATIONS OF ESTIMATED GFR ARE PERFORMED USING THE 2020 CKD-EPI STUDY REFIT EQUATION WITHOUT THE RACE VARIABLE FOR THE IDMS-TRACEABLE CREATININE METHODS. https://jasn.asnjournals.org/content/early/ASN.206810 0036 Performed By: #### R ENAL #### [facility] [address] [place] [address] GLUCOSE Canceled Normal [facility] Comment on above: Order Comment: TEST COMPREHENSIVE PANEL WAS CANCELLED, 04/13/2022 15:00 DUPLICATE ORDER see#[id number]. Performed By: #### R ENAL #### [facility] [address] [place] [address] POTASSIUM Canceled Normal [facility] Comment on above: Order Comment: TEST COMPREHENSIVE PANEL WAS CANCELLED, 04/13/2022 15:00 DUPLICATE ORDER see#[id number]. Performed By: #### R ENAL #### [facility] [address] [place] [address] SODIUM Canceled Normal [facility] Comment on above: Order Comment: TEST COMPREHENSIVE PANEL WAS CANCELLED, 04/13/2022 15:00 DUPLICATE ORDER see#[id number]. Performed By: #### R ENAL #### [facility] [address] [place] [address] TOTAL PROTEIN Canceled Normal [facility] Comment on above: Order Comment: TEST COMPREHENSIVE PANEL WAS CANCELLED, 04/13/2022 15:00 DUPLICATE ORDER see#[id number]. Performed By: #### R ENAL #### [facility] [address] [place] [address] UREA NITROGEN Canceled Normal [facility] Comment on above: Order Comment: TEST COMPREHENSIVE PANEL WAS CANCELLED, 04/13/2022 15:00 DUPLICATE ORDER see#[id number]. Performed By: #### R ENAL #### [facility] [address] [place] [address] Complete Blood Count + Diffe rentialon 04-13-2022 Basophils/100 WBC (Bld) 1.3 % 0.0 - 2.0 [facility] Work Phone: [phone] Erythrocyte distribution width (RBC) [Ratio] 15.1 % above high threshold See Below [facility] Work Phone: [phone] Comment on above: Reference Range: 11. 5 - 14.5 Hematocrit (Bld) [Volume fraction] 38.0 % See Below [facility] Work Phone: [phone] Comment on above: Reference Range: 36. 0 - 46.0 Hemoglobin (Bld) [Mass/Vol] 11.6 g/dL below low threshold See Below [facility] Work Phone: [phone] Comment on above: Reference Range: 12. 0 - 16.0 Lymphocytes/100 WBC (Bld) 43.8 % See Below [facility] Work Phone: [phone] Comment on above: Reference Range: 13. 0 - 44.0 MCHC (RBC) [Mass/Vol] 30.5 g/dL below low threshold See Below [facility] Work Phone: [phone] Comment on above: Reference Range: 32. 0 - 36.0 MCV (RBC) [Entitic vol] 95 fL 80 - 100 [facility] Work Phone: [phone] Monocytes/100 WBC (Bld) 9.9 % 2.0 - 10.0 [facility] Work Phone: [phone] Neutrophils/100 WBC (Bld) 40.4 % See Below [facility] Work Phone: [phone] Comment on above: Reference Range: 40. 0 - 80.0 Platelets (Bld) [#/Vol] 207 10*3/uL 150 - 450 [facility] Work Phone: [phone] RBC (Bld) [#/Vol] 3.98 {x10E12/L} below low threshold See Below [facility] Work Phone: [phone] Comment on above: Reference Range: 4.0 0 - 5.20 WBC (Bld) [#/Vol] 4.5 10*3/uL 4.4 - 11.3 [facility] Work Phone: [phone] Complete Blood Count + Differential 0.06 {x10E9/L} See Below [facility] Work Phone: Comment on above: Reference Range: 0.0 0 - 0.10 Complete Blood Count + Differential 0.21 {x10E9/L} See Below [facility] Work Phone: Comment on above: Reference Range: 0.0 0 - 0.70 Complete Blood Count + Differential 0.45 {x10E9/L} See Below [facility] Work Phone: Comment on above: Reference Range: 0.1 0 - 1.00 Complete Blood Count + Differential 1.99 {x10E9/L} See Below [facility] Work Phone: Comment on above: Reference Range: 1.2 0 - 4.80 Complete Blood Count + Differential 1.83 {x10E9/L} See Below [facility] Work Phone: Comment on above: Reference Range: 1.2 0 - 7.70 Complete Blood Count + Differential 4.6 % 0.0 - 6.0 [facility] Work Phone: Complete Blood Count + Differential 0.0 % 0.0 - 0.9 [facility] Work Phone: Comment on above: Immature Granulocyte Count (IG) includes promyelocytes, myelocytes and metamyelocytes but does not include bands. Percent differential counts (%) should be interpreted in the context of the absolute cell counts (cells/L). Complete Blood Count + Differential 0.0 {/100_WBC} 0.0-0.0 [facility] Work Phone: Daily Progress Note-Surgeryo n 04-13-2022 Daily Progress Note-Surgery Service: Surgery Subjective Data: MELINA DÍAZ is a 46 year old Female who is Hospital Day # 3. Patient tolerated small amount of water and coffee. Objective Data: Objective Information: T [id number] [id number]% Date/ 8: 8: 8: 8: 8:07 Range(35.8C - 37C ) (61 - 86 ) (16 - 19 ) (93 - 117 )/ (57 - 73 ) (95% - 100% ) Highest temp of 37 C was recorded at 04/13 4:46 Pain reported at 04/12 3:00: 3 = Mild Weights 04/12 5:16: Weight in kg (Weight (kg)) 98.4 04/12 5:16: Weight in lbs ((lbs)) 216.9 04/12 1:08: BMI (kg/m2) (BMI (kg/m2)) 39.094 Physical Exam Narrative: Physical Exam: Constitutional: Well developed, awake/alert/oriented x3, no distress, alert and cooperative Eyes: PERRL, EOMI, clear sclera ENMT: mucous membranes moist, no apparent injury, no lesions seen Head/Neck: Neck supple, no apparent injury, trachea midline Respiratory/Thorax: Nonlabored breathing on RA Cardiovascular: Regular rate and rhythm on peripheral pulse Gastrointestinal: Nondistended, soft, RLQ tenderness, no rebound tenderness or guarding, no masses palpable Musculoskeletal: CARRENO Extremities: normal extremities, no cyanosis edema, contusions or wounds, no clubbing radial pulse 2+ b/l Psychological: Appropriate mood and behavior Skin: Warm and dry, no lesions, no rashes Medication: Medications: Continuous Medications ------ 1. Dextrose 5% - NaCL 0.45% Infusion: 1000 mL IntraVenous Scheduled Medications ------ 1. Acetaminophen Oral Liquid: 650 mg Oral Every 6 Hours 2. Enoxaparin SubCutaneous: 40 mg SubCutaneous Every 24 Hours 3. Levothyroxine: 50 microgram(s) Oral Daily 4. Methocarbamol Injectable: 500 mg IntraVenous Push Every 8 Hours 5. Pantoprazole Injectable: 40 mg IntraVenous Push Every 12 Hours 6. Sucralfate Oral Liquid: 1 gram(s) Oral 4 Times a Day PRN Medications ------ 1. diphenhydrAMINE Injectable: 25 mg IntraVenous Push Every 4 Hours 2. HYDROmorphone Injectable: 0.4 mg IntraVenous Push Every 4 Hours 3. Ondansetron Injectable: 4 mg IntraVenous Push Every 6 Hours 4. oxyCODONE Oral Liquid: 5 mg Oral Every 6 Hours Recent Lab Results: Results: I have reviewed these laboratory results: Complete Blood Count + Differential 13-Apr-2022 05:44:00 ResultValue White Blood Cell Count 4.5 Nucleated Erythrocyte Count 0.0 Red Blood Cell Count 3.98 L HGB 11.6 L HCT 38.0 MCV 95 MCHC 30.5 L PLT 207 RDW-CV 15.1 H Neutrophil % 40.4 Immature Granulocytes % 0.0 Lymphocyte % 43.8 Monocyte % 9.9 Eosinophil % 4.6 Basophil % 1.3 Neutrophil Count 1.83 Lymphocyte Count 1.99 Monocyte Count 0.45 Eosinophil Count 0.21 Basophil Count 0.06 Renal Function Panel 13-Apr-2022 05:44:00 ResultValue Glucose, Serum 74 NA 140 K 4.1 CL 109 H Bicarbonate, Serum 26 Anion Gap, Serum 9 L BUN 3 L CREAT 0.57 GFR Female >90 Calcium, Serum 8.5 L Phosphorus, Serum 4.7 ALB 3.2 L Magnesium, Serum 13-Apr-2022 05:44:00 ResultValue Magnesium, Serum 2.38 Assessment and Plan: Comorbidities: Comorbidityanemia AnemiaFluid dilution Code Status: Code StatusFull Code Assessment: Pt is 46 yo F s/p sleeve gastrectomy w/ revision RYGB and HHR by Dr. 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 Plan: - CLD - IVF - PPI - carafate - start lovenox for DVT prophylaix - likely EGD with possible dilation as outpatient Plan has been discussed with Dr. Conner Attestation: Note Completion: I am a: Resident/Fellow Attending AttestationI saw and evaluated the patient. I personally obtained the frost and critical portions of the history and physical exam or was physically present for frost and critical portions performed by the resident/fellow. I reviewed the resident/fellows documentation and discussed the patient with the resident/fellow. I agree with the resident/fellows medical decision making as documented in the note. I personally evaluated the patient [id number] Comments/ Additional Findings Unable to tolerate PO. Pain around periumbilical and epigastric area. Outside imaging, endoscopy c/w GJ stricture and ulcer. Plan for IV hydration, PPI, carafate and EGD with dilation. Electronic Signatures: Brittany Bose) (Signed 13-Apr-2022 11:17) Authored: Note Completion Co-Signer: Service, Subjective Data, Objective Data, Assessment and Plan, Note Completion Lukasz Mcclain (Resident)) (Signed 13-Apr-2022 09:41) Authored: Service, Subjective Data, Objective Data, Assessment and Plan, Note Completion Last Updated: 13-Apr-2022 11:17 by Brittany Bose) Normal [facility] Discharge [id number] Discharge Profile2 Discharge Orders: Anticipated Discharge Date: Anticipated Discharge [id number] Anticipated Discharge Time15:30 DNAR: Code Status at Discharge: Full Code Activity: activity as tolerated. May shower. May not drive while taking narcotics. Diet: Dietfull liquids, continue until 04/20 and advance as tolerated Call Provider If (Homegoing Patients): Breathing faster than normal. Breathing harder than normal or having retractions. Fever of 100.4 F (38 C) or higher. Temperature is greater than 102 degrees. Chills. Drinking less than normal. Not being able to go 4-6 hours between albuterol treatments. Urinating less than normal, over 1 day. Urinating less than 4 times per day. Acting very sleepy and difficult to awaken. Vomiting (throwing up) and not able to eat or drink for 12 hours. 3 or more loose, watery bowel movements in 24 hours (diarrhea). Any new concerning symptoms. Hospital Course (Home Care/Gold Form): Hospital Course: Hospital Course: include significant abnormal lab values Patient is a 46 years old female wit sleeve gastectomy revision to RYGB in december who presented with PO intolerance. Patient had Upper Gi and EGD which showed ulcer and stricture at GJ anastomosis. Patient was transferred here for further management. Patient had minimal PO intake. VSS. No WBC. Underwent EGD 04/16 w/ dilation of stricture. Post-procedure able to tolerate FLD. Subsequently discharged on FLD w/ outpatient f/u. Provider FINAL REVIEW of Orders: Final Review: Final Review of Medication Reconciliation and Orders Completedby Physician Reviewing Austen Garcia, MD (Resident) at 17-Apr-2022 07:55:50 Appointments: Follow-Up Appointment 01: Physician/Dept/ServiceDr. Bose, General Surgery Scheduled Date/[id number] 10:15 Location*Please do not go into the office the doctor will call you Phone [phone] Comments*Virtual visit Electronic Signatures: Rene Garcia (Resident)) (Signed 17-Apr-2022 08:41) Authored: Discharge Orders, Hospital Course (Home Care/Gold Form), Provider FINAL REVIEW of Orders, Appointments Diann Barrientos (PT SVS REP) (Signed 17-Apr-2022 08:27) Authored: Discharge Orders, Appointments Lukasz Mcclain (Resident)) (Signed 13-Apr-2022 10:52) Authored: Discharge Orders, Hospital Course (Home Care/Gold Form), Gold Form - Chorus Dancer Summary Last Updated: 17-Apr-2022 08:41 by Rene Garcia ( (Resident)) Normal [facility] MAGNESIUMon 04-13-2022 Magnesium [Mass/Vol] 2.38 mg/dL Normal 1.60 - 2.40 [facility] Comment on above: Performed By: #### M G #### [facility] [id number] [place] [address] Magnesium, Serumon 2 Magnesium [Mass/Vol] 2.38 mg/dL See Below [facility] Work Phone: Comment on above: Reference Range: 1.6 0 - 2.40 Order Reconciliationon 04-13 Order Reconciliation Page 1 Discharge Reconciliation Document Reconciliation Type: Discharge requested on behalf of Rene Garcia (Resident) done by Rene Garcia ( (Resident)) Discharge - Reconciliation: 13-Apr-2022 09:50 by: Lukasz Mcclain ( (Resident)) Discharge - Reset to Incomplete: 17-Apr-2022 14:42 by: Rene Garcia ( (Resident)) Discharge - Reconciliation: 17-Apr-2022 14:49 by: Rene Garcia ( (Resident)) Home Medications EnteredHOME MEDICATIONS AT DISCHARGE DateReconciliation Comment/ Additional Information ALPRAZolam 0.5 mg oral tablet 1 tab(s) orally once a day, As Needed 25-May-2021 00:44 ALPRAZolam 0.5 mg oral tablet 1 tab(s) orally once a day, As Needed 25-May-2021 00:44 ALPRAZolam 0.5 mg oral tablet is continued as ALPRAZolam 0.5 mg oral tablet B-12 1000 mcg oral tablet 1000 microgram(s) injectable once a week-25-May-2021 00:40 B-12 1000 mcg oral tablet 1000 microgram(s) injectable once a week-25-May-2021 00:40 B-12 1000 mcg oral tablet is continued as B-12 1000 mcg oral tablet Benadryl 25 mg oral tablet 1 tab(s) orally once a day (at bedtime) 01-Jun-2021 15:17 Benadryl 25 mg oral tablet 1 tab(s) orally once a day (at bedtime) 01-Jun-2021 15:17 Benadryl 25 mg oral tablet is continued as Benadryl 25 mg oral tablet gabapentin 250 mg/5 mL oral solution 5 milliliter(s) orally 3 times a day 26-Dec-2021 10:14 gabapentin 250 mg/5 mL oral solution 5 milliliter(s) orally 3 times a day 26-Dec-2021 10:14 gabapentin 250 mg/5 mL oral solution is continued as gabapentin 250 mg/5 mL oral solution oxyCODONE 5 mg oral capsule 1 cap(s) orally every 6 hours, As Needed 25-May-2021 00:41 Discontinued; Discontinue from ORM oxyCODONE 5 mg oral capsule is not required Pepcid 20 mg oral tablet 1 tab(s) orally 2 times a day 30-May-2021 13:14 Pepcid 20 mg oral tablet 1 tab(s) orally 2 times a day 30-May-2021 13:14 Pepcid 20 mg oral tablet is continued as Pepcid 20 mg oral tablet promethazine 25 mg oral tablet 1 tab(s) orally every 6 hours, As Needed 01-Jun-2021 15:18 promethazine 25 mg oral tablet 1 tab(s) orally every 6 hours, As Needed 01-Jun-2021 15:18 promethazine 25 mg oral tablet is continued as promethazine 25 mg oral tablet Synthroid 50 mcg (0.05 mg) oral tablet 1 tab(s) orally once a day 25-May-2021 00:43 Synthroid 50 mcg (0.05 mg) oral tablet 1 tab(s) orally once a day 25-May-2021 00:43 Synthroid 50 mcg (0.05 mg) oral tablet is continued as Synthroid 50 mcg (0.05 mg) oral tablet Current OrdersDateHOME MEDICATIONS AT DISCHARGE DateReconciliation Comment/ Additional Information Acetaminophen Oral Liquid (TYLENOL)DOSE = 650 mg Oral Every 6 HoursCa mg/DOSE x 1 = 650 mg/Dose (Requested dose was 650 mg per Flat Dose) (Daily Total is 2,600 mg) 12-Apr-2022 20:11 Acetaminophen Oral Liquid is not required Dextrose 5% - NaCL 0.45% Infusion IV Bag Volume = 1,000 mL Run at: 100 mL/hr IntraVenous 14-Apr-2022 23:56 Dextrose 5% - NaCL 0.45% Infusion is not required Dextrose 5% - NaCL 0.45% Infusion IV Bag Volume = 1,000 mL Run at: 100 mL/hr IntraVenous 11-Apr-2022 21:31 Dextrose 5% - NaCL 0.45% Infusion is not required diphenhydrAMINE Injectable (BENADRYL)DOSE = 25 mg IntraVenous Push Every 4 Hours, PRN Itching 12-Apr-2022 06:00 diphenhydrAMINE Injectable is not required Docusate Capsule (COLACE)DOSE = 100 mg Oral 2 Times a Day 15-Apr-2022 10:24 Docusate is not required Enoxaparin SubCutaneous (LOVENOX)DOSE = 40 mg SubCutaneous Every 24 Hours 12-Apr-2022 09:05 Enoxaparin SubCutaneous is not required HYDROmorphone Injectable (DILAUDID)DOSE = 0.4 mg IntraVenous Push Every 4 Hours, PRN breakthrough pain 11-Apr-2022 21:31 HYDROmorphone Injectable is not required Levothyroxine Tablet (SYNTHROID)DOSE = 50 microgram(s) Oral DailyClinician Notes: Enteral feedings are held 1 hour pre and post dose 12-Apr-2022 00:45 Levothyroxine is not required Methocarbamol Injectable (ROBAXIN)DOSE = 500 mg IntraVenous Push Every 8 Hours 11-Apr-2022 21:31 methocarbamol 500 mg oral tablet 1 tab(s) orally every 8 hours 17-Apr-2022 14:45 Prescription is created for methocarbamol 500 mg oral tablet Ondansetron Injectable (ZOFRAN)DOSE = 4 mg IntraVenous Push Every 6 Hours, PRN Nausea and/or Vomiting 12-Apr-2022 06:00 Ondansetron Injectable is not required Ondansetron Injectable (ZOFRAN)DOSE = 4 mg IntraVenous Push Once, PRN PONV, first lineClinician Notes: Anita-operative order ONLY 16-Apr-2022 09:36 Ondansetron Injectable is not required oxyCODONE Oral Liquid (ROXICODONE)DOSE = 5 mg Oral Every 6 Hours, PRN pain 12-Apr-2022 10:40 oxyCODONE 5 mg/5 mL oral solution 5 milliliter(s) orally every 6 hours, As needed, pain 17-Apr-2022 14:43 Prescription is created for oxyCODONE 5 mg/5 mL oral solution Pantoprazole Injectable (PROTONIX)DOSE = 40 mg IntraVenous Push Every 12 Hours 11-Apr-2022 21:31 Pantoprazole Injectable is not required Polyethylene Glycol Powder f (more content not included)... Normal [facility] RENAL FUNCTION PANELon 04-13 Albumin [Mass/Vol] 3.2 g/dL Low 3.4 - 5.0 [facility] Comment on above: Performed By: #### R ENAL #### [facility] [address] [place] [address] Anion gap [Moles/Vol] 9 mmol/L Low 10 - 20 [facility] Comment on above: Performed By: #### R ENAL #### [facility] [address] [place] [address] Calcium [Mass/Vol] 8.5 mg/dL Low 8.6 - 10.6 [facility] Comment on above: Performed By: #### R ENAL #### [facility] [address] [place] [address] Chloride [Moles/Vol] 109 mmol/L High 98 - 107 [facility] Comment on above: Performed By: #### R ENAL #### [facility] [address] [place] [address] Creatinine [Mass/Vol] 0.57 mg/dL Normal 0.50 - 1.05 [facility] Comment on above: Performed By: #### R ENAL #### [facility] [address] [place] [address] eGFR FEMALE >90 Normal >90 [facility] Comment on above: Result Comment: CALC ULATIONS OF ESTIMATED GFR ARE PERFORMED USING THE 2020 CKD-EPI STUDY REFIT EQUATION WITHOUT THE RACE VARIABLE FOR THE IDMS-TRACEABLE CREATININE METHODS. https://jasn.asnjournals.org/content/early/ASN.488958 2475 Performed By: #### R ENAL #### [facility] [address] [place] [address] Glucose [Mass/Vol] 74 mg/dL Normal 74 - 99 [facility] Comment on above: Performed By: #### R ENAL #### [facility] [address] [place] [address] HCO3 (Bld) [Moles/Vol] 26 mmol/L Normal 21 - 32 [facility] Comment on above: Performed By: #### R ENAL #### [facility] [address] [place] [address] Phosphate [Mass/Vol] 4.7 mg/dL Normal 2.5 - 4.9 [facility] Comment on above: Result Comment: The performance characteristics of phosphorus testing in heparinized plasma have been validated by the individual laboratory site where testing is performed. Testing on heparinized plasma is not approved by the FDA; however, such approval is not necessary. Performed By: #### R ENAL #### [facility] [address] [place] [address] Potassium [Moles/Vol] 4.1 mmol/L Normal 3.5 - 5.3 [facility] Comment on above: Performed By: #### R ENAL #### [facility] [address] [place] [address] Sodium [Moles/Vol] 140 mmol/L Normal 136 - 145 [facility] Comment on above: Performed By: #### R ENAL #### [facility] [address] [place] [address] Urea nitrogen [Mass/Vol] 3 mg/dL Low 6 - 23 [facility] Comment on above: Performed By: #### R ENAL #### [facility] [address] [place] [address] Renal Function Panelon 04-13 Albumin BCP dye [Mass/Vol] 3.2 g/dL below low threshold 3.4 - 5.0 [facility] Work Phone: Anion gap [Moles/Vol] 9 mmol/L below low threshold 10 - 20 [facility] Work Phone: Calcium [Mass/Vol] 8.5 mg/dL below low threshold 8.6 - 10.6 [facility] Work Phone: Chloride [Moles/Vol] 109 mmol/L above high threshold 98 - 107 [facility] Work Phone: CO2 [Moles/Vol] 26 mmol/L 21 - 32 [facility] Work Phone: Creatinine [Mass/Vol] 0.57 mg/dL See Below [facility] Work Phone: Comment on above: Reference Range: 0.5 0 - 1.05 Glucose [Mass/Vol] 74 mg/dL 74 - 99 [facility] Work Phone: Phosphate [Mass/Vol] 4.7 mg/dL 2.5 - 4.9 [facility] Work Phone: Comment on above: The performance ciara acteristics of phosphorus testing in heparinized plasma have been validated by the individual laboratory site where testing is performed. Testing on heparinized plasma is not approved by the FDA; however, such approval is not necessary. Potassium [Moles/Vol] 4.1 mmol/L 3.5 - 5.3 [facility] Work Phone: Sodium [Moles/Vol] 140 mmol/L 136 - 145 [facility] Work Phone: Urea nitrogen [Mass/Vol] 3 mg/dL below low threshold 6 - 23 [facility] Work Phone: Renal Function Panel >90 >90 [facility] Work Phone: Comment on above: CALCULATIONS OF RANDY MATED GFR ARE PERFORMED USING THE 2020 CKD-EPI STUDY REFIT EQUATION WITHOUT THE RACE VARIABLE FOR THE IDMS-TRACEABLE CREATININE METHODS.https://jasn.asnjournals.org/content/early/ N.7748950651 CBCon 04-12-2022 Erythrocyte distribution width (RBC) [Ratio] 14.9 % High 11.5 - 14.5 [facility] Comment on above: Performed By: #### R ENAL #### [facility] [address] [place] [address] Hematocrit (Bld) [Volume fraction] 37.1 % Normal 36.0 - 46.0 [facility] Comment on above: Performed By: #### R ENAL #### [facility] [address] [place] [address] Hemoglobin (Bld) [Mass/Vol] 12.0 g/dL Normal 12.0 - 16.0 [facility] Comment on above: Performed By: #### R ENAL #### [facility] [address] [place] [address] MCHC (RBC) [Mass/Vol] 32.3 g/dL Normal 32.0 - 36.0 [facility] Comment on above: Performed By: #### R ENAL #### [facility] [address] [place] [address] MCV (RBC) [Entitic vol] 88 fL Normal 80 - 100 [facility] Comment on above: Performed By: #### R ENAL #### [facility] [address] [place] [address] NUCLEATED RBC 0.0 /100 WBC Normal 0.0-0.0 [facility] Comment on above: Performed By: #### R ENAL #### [facility] [address] [place] [address] Platelets (Bld) [#/Vol] 215 10*3/uL Normal 150 - 450 [facility] Comment on above: Performed By: #### R ENAL #### [facility] [address] [place] [address] RBC 4.24 x10E12/L Normal 4.00 - 5.20 [facility] Comment on above: Performed By: #### R ENAL #### [facility] [address] [place] [address] WBC (Bld) [#/Vol] 5.2 10*3/uL Normal 4.4 - 11.3 [facility] Comment on above: Performed By: #### R ENAL #### [facility] [address] [place] [address] Erythrocyte distribution width (RBC) [Ratio] 14.8 % High 11.5 - 14.5 [facility] Comment on above: Performed By: #### R ENAL #### [facility] [address] [place] [address] Hematocrit (Bld) [Volume fraction] 37.6 % Normal 36.0 - 46.0 [facility] Comment on above: Performed By: #### R ENAL #### [facility] [address] [place] [address] Hemoglobin (Bld) [Mass/Vol] 12.4 g/dL Normal 12.0 - 16.0 [facility] Comment on above: Performed By: #### R ENAL #### [facility] [address] [place] [address] MCHC (RBC) [Mass/Vol] 33.0 g/dL Normal 32.0 - 36.0 [facility] Comment on above: Performed By: #### R ENAL #### [facility] [address] [place] [address] MCV (RBC) [Entitic vol] 89 fL Normal 80 - 100 [facility] Comment on above: Performed By: #### R ENAL #### [facility] [address] [place] [address] NUCLEATED RBC 0.0 /100 WBC Normal 0.0-0.0 [facility] Comment on above: Performed By: #### R ENAL #### [facility] [address] [place] [address] Platelets (Bld) [#/Vol] 217 10*3/uL Normal 150 - 450 [facility] Comment on above: Performed By: #### R ENAL #### [facility] [address] [place] [address] RBC 4.21 x10E12/L Normal 4.00 - 5.20 [facility] Comment on above: Performed By: #### R ENAL #### [facility] [address] [place] [address] WBC (Bld) [#/Vol] 4.9 10*3/uL Normal 4.4 - 11.3 [facility] Comment on above: Performed By: #### R ENAL #### [facility] [address] [place] [address] Erythrocyte distribution width (RBC) [Ratio] 14.9 % High 11.5 - 14.5 [facility] Comment on above: Performed By: #### C BC #### [facility] [address] [place] [address] Hematocrit (Bld) [Volume fraction] 41.7 % Normal 36.0 - 46.0 [facility] Comment on above: Performed By: #### C BC #### [facility] [address] [place] [address] Hemoglobin (Bld) [Mass/Vol] 13.6 g/dL Normal 12.0 - 16.0 [facility] Comment on above: Performed By: #### C BC #### [facility] [address] [place] [address] MCHC (RBC) [Mass/Vol] 32.6 g/dL Normal 32.0 - 36.0 [facility] Comment on above: Performed By: #### C BC #### [facility] [address] [place] [address] MCV (RBC) [Entitic vol] 90 fL Normal 80 - 100 [facility] Comment on above: Performed By: #### C BC #### [facility] [address] [place] [address] NUCLEATED RBC 0.0 /100 WBC Normal 0.0-0.0 [facility] Comment on above: Performed By: #### C BC #### [facility] [address] [place] [address] Platelets (Bld) [#/Vol] 241 10*3/uL Normal 150 - 450 [facility] Comment on above: Performed By: #### C BC #### [facility] [address] [place] [address] RBC 4.62 x10E12/L Normal 4.00 - 5.20 [facility] Comment on above: Performed By: #### C BC #### [facility] [address] [place] [address] WBC (Bld) [#/Vol] 5.2 10*3/uL Normal 4.4 - 11.3 [facility] Comment on above: Performed By: #### C BC #### [facility] [address] [place] [address] COAGULATION SCREENon 022 aPTT Coag (Bld) [Time] 31 s Normal 26 - 39 [facility] Comment on above: Result Comment: THE APTT IS NO LONGER USED FOR MONITORING UNFRACTIONATED HEPARIN THERAPY. FOR MONITORING HEPARIN THERAPY, USE THE HEPARIN ASSAY. Performed By: #### C OAGS ####[id number] [place] [address] PT Coag (PPP) [Time] 11.5 s Normal 9.8 - 13.4 [facility] Comment on above: Performed By: #### C OAGS ####[id number] [place] [address] PT, INR 1.0 Normal 0.9 - 1.1 [facility] Comment on above: Performed By: #### C OAGS ####[id number] [place] [address] COMPREHENSIVE PANELon 2021 Albumin [Mass/Vol] 3.6 g/dL Normal 3.4 - 5.0 [facility] Comment on above: Performed By: #### R ENAL #### [facility] [address] [place] [address] ALP [Catalytic activity/Vol] 78 U/L Normal 33 - 110 [facility] Comment on above: Performed By: #### R ENAL #### [facility] [address] [place] [address] ALT [Catalytic activity/Vol] 14 U/L Normal 7 - 45 [facility] Comment on above: Result Comment: Donita ents treated with Sulfasalazine may generate falsely decreased results for ALT. Performed By: #### R ENAL #### [facility] [address] [place] [address] Anion gap [Moles/Vol] 13 mmol/L Normal 10 - 20 [facility] Comment on above: Performed By: #### R ENAL #### [facility] [address] [place] [address] AST [Catalytic activity/Vol] 16 U/L Normal 9 - 39 [facility] Comment on above: Performed By: #### R ENAL #### [facility] [address] [place] [address] Bilirubin [Mass/Vol] 0.6 mg/dL Normal 0.0 - 1.2 [facility] Comment on above: Performed By: #### R ENAL #### [facility] [address] [place] [address] Calcium [Mass/Vol] 8.7 mg/dL Normal 8.6 - 10.6 [facility] Comment on above: Performed By: #### R ENAL #### [facility] [address] [place] [address] Chloride [Moles/Vol] 107 mmol/L Normal 98 - 107 [facility] Comment on above: Performed By: #### R ENAL #### [facility] [address] [place] [address] Creatinine [Mass/Vol] 0.49 mg/dL Low 0.50 - 1.05 [facility] Comment on above: Performed By: #### R ENAL #### [facility] [address] [place] [address] eGFR FEMALE >90 Normal >90 [facility] Comment on above: Result Comment: CALC ULATIONS OF ESTIMATED GFR ARE PERFORMED USING THE 2020 CKD-EPI STUDY REFIT EQUATION WITHOUT THE RACE VARIABLE FOR THE IDMS-TRACEABLE CREATININE METHODS. https://jasn.asnjournals.org/content//ASN.262819 7536 Performed By: #### R ENAL #### [facility] [address] [place] [address] Glucose [Mass/Vol] 79 mg/dL Normal 74 - 99 [facility] Comment on above: Performed By: #### R ENAL #### [facility] [address] [place] [address] HCO3 (Bld) [Moles/Vol] 25 mmol/L Normal 21 - 32 [facility] Comment on above: Performed By: #### R ENAL #### [facility] [address] [place] [address] Potassium [Moles/Vol] 4.3 mmol/L Normal 3.5 - 5.3 [facility] Comment on above: Performed By: #### R ENAL #### [facility] [address] [place] [address] Protein [Mass/Vol] 6.0 g/dL Low 6.4 - 8.2 [facility] Comment on above: Performed By: #### R ENAL #### [facility] [address] [place] [address] Sodium [Moles/Vol] 141 mmol/L Normal 136 - 145 [facility] Comment on above: Performed By: #### R ENAL #### [facility] [address] [place] [address] Urea nitrogen [Mass/Vol] 5 mg/dL Low 6 - 23 [facility] Comment on above: Performed By: #### R ENAL #### [facility] [address] [place] [address] Albumin [Mass/Vol] 4.0 g/dL Normal 3.4 - 5.0 [facility] Comment on above: Performed By: #### R ENAL #### [facility] [address] [place] [address] ALP [Catalytic activity/Vol] 84 U/L Normal 33 - 110 [facility] Comment on above: Performed By: #### R ENAL #### [facility] [address] [place] [address] ALT [Catalytic activity/Vol] 17 U/L Normal 7 - 45 [facility] Comment on above: Result Comment: Donita ents treated with Sulfasalazine may generate falsely decreased results for ALT. Performed By: #### R ENAL #### [facility] [address] [place] [address] Anion gap [Moles/Vol] 13 mmol/L Normal 10 - 20 [facility] Comment on above: Performed By: #### R ENAL #### [facility] [address] [place] [address] AST [Catalytic activity/Vol] 18 U/L Normal 9 - 39 [facility] Comment on above: Performed By: #### R ENAL #### [facility] [address] [place] [address] Bilirubin [Mass/Vol] 0.5 mg/dL Normal 0.0 - 1.2 [facility] Comment on above: Performed By: #### R ENAL #### [facility] [address] [place] [address] Calcium [Mass/Vol] 9.0 mg/dL Normal 8.6 - 10.6 [facility] Comment on above: Performed By: #### R ENAL #### [facility] [address] [place] [address] Chloride [Moles/Vol] 104 mmol/L Normal 98 - 107 [facility] Comment on above: Performed By: #### R ENAL #### [facility] [address] [place] [address] Creatinine [Mass/Vol] 0.60 mg/dL Normal 0.50 - 1.05 [facility] Comment on above: Performed By: #### R ENAL #### [facility] [address] [place] [address] eGFR FEMALE >90 Normal >90 [facility] Comment on above: Result Comment: CALC ULATIONS OF ESTIMATED GFR ARE PERFORMED USING THE 2020 CKD-EPI STUDY REFIT EQUATION WITHOUT THE RACE VARIABLE FOR THE IDMS-TRACEABLE CREATININE METHODS. https://jasn.asnjournals.org/content//ASN.464909 3702 Performed By: #### R ENAL #### [facility] [address] [place] [address] Glucose [Mass/Vol] 107 mg/dL High 74 - 99 [facility] Comment on above: Performed By: #### R ENAL #### [facility] [address] [place] [address] HCO3 (Bld) [Moles/Vol] 26 mmol/L Normal 21 - 32 [facility] Comment on above: Performed By: #### R ENAL #### [facility] [address] [place] [address] Potassium [Moles/Vol] 3.9 mmol/L Normal 3.5 - 5.3 [facility] Comment on above: Performed By: #### R ENAL #### [facility] [address] [place] [address] Protein [Mass/Vol] 6.1 g/dL Low 6.4 - 8.2 [facility] Comment on above: Performed By: #### R ENAL #### [facility] [address] [place] [address] Sodium [Moles/Vol] 139 mmol/L Normal 136 - 145 [facility] Comment on above: Performed By: #### R ENAL #### [facility] [address] [place] [address] Urea nitrogen [Mass/Vol] 5 mg/dL Low 6 - 23 [facility] Comment on above: Performed By: #### R ENAL #### [facility] [address] [place] [address] Albumin [Mass/Vol] 4.5 g/dL Normal 3.4 - 5.0 [facility] Comment on above: Performed By: #### R ENAL #### [facility] [address] [place] [address] ALP [Catalytic activity/Vol] 97 U/L Normal 33 - 110 [facility] Comment on above: Performed By: #### R ENAL #### [facility] [address] [place] [address] ALT [Catalytic activity/Vol] 19 U/L Normal 7 - 45 [facility] Comment on above: Result Comment: Donita ents treated with Sulfasalazine may generate falsely decreased results for ALT. Performed By: #### R ENAL #### [facility] [address] [place] [address] Anion gap [Moles/Vol] 13 mmol/L Normal 10 - 20 [facility] Comment on above: Performed By: #### R ENAL #### [facility] [address] [place] [address] AST [Catalytic activity/Vol] 19 U/L Normal 9 - 39 [facility] Comment on above: Performed By: #### R ENAL #### [facility] [address] [place] [address] Bilirubin [Mass/Vol] 0.6 mg/dL Normal 0.0 - 1.2 [facility] Comment on above: Performed By: #### R ENAL #### [facility] [address] [place] [address] Calcium [Mass/Vol] 9.5 mg/dL Normal 8.6 - 10.6 [facility] Comment on above: Performed By: #### R ENAL #### [facility] [address] [place] [address] Chloride [Moles/Vol] 102 mmol/L Normal 98 - 107 [facility] Comment on above: Performed By: #### R ENAL #### [facility] [address] [place] [address] Creatinine [Mass/Vol] 0.71 mg/dL Normal 0.50 - 1.05 [facility] Comment on above: Performed By: #### R ENAL #### [facility] [address] [place] [address] eGFR FEMALE >90 Normal >90 [facility] Comment on above: Result Comment: CALC ULATIONS OF ESTIMATED GFR ARE PERFORMED USING THE 2020 CKD-EPI STUDY REFIT EQUATION WITHOUT THE RACE VARIABLE FOR THE IDMS-TRACEABLE CREATININE METHODS. https://jasn.asnjournals.org/content//ASN.394917 9082 Performed By: #### R ENAL #### [facility] [address] [place] [address] Glucose [Mass/Vol] 82 mg/dL Normal 74 - 99 [facility] Comment on above: Performed By: #### R ENAL #### [facility] [address] [place] [address] HCO3 (Bld) [Moles/Vol] 29 mmol/L Normal 21 - 32 [facility] Comment on above: Performed By: #### R ENAL #### [facility] [address] [place] [address] Potassium [Moles/Vol] 3.4 mmol/L Low 3.5 - 5.3 [facility] Comment on above: Performed By: #### R ENAL #### [facility] [address] [place] [address] Protein [Mass/Vol] 7.4 g/dL Normal 6.4 - 8.2 [facility] Comment on above: Performed By: #### R ENAL #### [facility] [address] [place] [address] Sodium [Moles/Vol] 141 mmol/L Normal 136 - 145 [facility] Comment on above: Performed By: #### R ENAL #### [facility] [address] [place] [address] Urea nitrogen [Mass/Vol] 5 mg/dL Low 6 - 23 [facility] Comment on above: Performed By: #### R ENAL #### [facility] [address] [place] [address] CORONAVIRUS 2019, SCREEN ASY MPTOMATICon 07-30-2022 SARS-CoV-2 (COVID-19) RNA MEAGAN+probe Ql (Unsp spec) Not detected Normal Not Detected [facility] Comment on above: Result Comment: . This test has received [facility] Emergency Use Authorization (EUA) and has been verified by [facility] ([facility]). This test is only authorized for the duration of time that circumstances exist to justify the authorization of the emergency use of in vitro diagnostic tests for the detection of SARS-CoV-2 virus and/or diagnosis of COVID-19 infection under section 564(b)(1) of the Act, 21 U.S.C. 360bbb-3(b)(1), unless the authorization is terminated or revoked sooner. [facility] is certified under CLIA-88 as qualified to perform high complexity testing. Testing is performed in the [facility] located at [address] [place] [address]. SARS-CoV-2/Flu/RSV Multiplex Test: Fact sheet for providers: https://www.fda.gov/media/733400/download Fact sheet for patients: https://www.fda.gov/media/795084/download Performed By: #### R ENAL #### [place] [address] Lab Specimen Source Nasal, Nasopharyngeal Normal [facility] Comment on above: Performed By: #### R ENAL #### [place] [address] Coronavirus 2019 RNA by PCR, Screening Asymptomticon 04-12-2022 Coronavirus 2019 RNA by PCR, Screening Asymptomtic Not detected Normal See Below [employer] [facility] Work Phone: Comment on above: SOURCE: Nasal, Nasop haryngealReference Range: Not Detected.This test has received FDA Emergency Use Authorization (EUA) and has been verified by [facility] ([facility]). This test is only authorized for the duration of time that circumstances exist to justify the authorization of the emergency use of in vitro diagnostic tests for the detection of SARS-CoV-2 virus and/or diagnosis of COVID-19 infection under section 564(b)(1) of the Act, 21 U.S.C. 360bbb-3(b)(1), unless the authorization is terminated or revoked sooner. [facility] is certified under CLIA-88 as qualified to perform high complexity testing. Testing is performed in the [facility] located at [address] [place] [address].SARS-CoV-2/Flu/RSV Multiplex Test: Fact sheet for providers: https://www.fda.gov/media/326788/downloadFact sheet for patients: https://www.fda.gov/media/257186/download Covid 19 Resultson 2 SARS-CoV-2 (COVID-19) RNA MEAGAN+probe Ql (Unsp spec) NEGATIVE COVID-19 Test Coronaviruses are common world-wide and are the cause of many common colds. SARS-COV2 is a new coronavirus that began circulating worldwide in 2019 so we are calling it COVID-19. It has been estimated that four out of five patients with COVID-19 will recover at home without the need for medical attention. Symptoms of COVID-19 may include cough, fever, shortness of breath, loss of taste or smell and other flu-like symptoms including chills, sore muscles, sore throat, and headache. Severe illness is more common in older people and people with other health problems such as high blood pressure, obesity, and immune system problems. If the test is positive, you have COVID-19. You will be contacted by the ordering physicians office and instructed to remain on home isolation, in accordance with CDC guidelines. You may also be contacted by the [facility] to see if any of your close contacts may have been exposed to the virus and need to quarantine. If the test is negative, you likely do not have COVID-19 at this time, but you still may have a different illness that can spread to other people (like Influenza, or the Flu) and could still be at risk for getting COVID-19. We recommend that you stay away from other people to limit the spread of illness until your symptoms are improving and you are fever-free for 24 hours without the use of fever lowering medications such as acetaminophen or ibuprofen. No test is 100% accurate so if you are still concerned you may have COVID-19, talk to your doctor about the need to continue to stay away from others. Medicines Unless your provider told you not to use the following: Acetaminophen (Tylenol and others) is generally safe. Anti-inflammatory medications, such as Ibuprofen (Advil or Motrin) or Naproxen (Aleve) can also be used. Hoog-xry-zlplxpz cough and cold medicines can be used according to the instructions on the package. Some cese-nwq-jeslyij medicines also contain acetaminophen. Make sure you are not taking more than your recommended dose. For those not hospitalized, there is no specific treatment available for this illness. Antibiotics do not treat Coronaviruses. Follow-Up Follow up with your doctor by scheduling a virtual visit or consider follow-up at one of our urgent care fever clinics. If you are having difficulty breathing, or are very weak and having difficulty standing, this is a medical emergency. Call 911 or have someone take you to the nearest emergency room immediately. If possible, wear a facemask. Additional guidance from the CDC for patients who tested POSITIVE for COVID-19 How to isolate: Isolate yourself in a specific room at home and limit your contact with others. Use a separate bathroom from other members of the household, when possible. Leave home only to get essential medical care. Do not go to work, school or public areas. Avoid using public transportation, ride-sharing, or taxis. Restrict contact with pets and other animals. If you must care for your pet or be around animals while you are sick, wash your hands before and after your interaction and wear a facemask. Make sure that shared spaces in the home have good airflow, such as by an air conditioner or an opened window, weather permitting. Personal Hygiene Procedures: Wear a face mask when in the same room as other people or pets. If a face mask interferes with your breathing, others should wear a mask when sharing space with you. Frequent hand-washing: wash your hands with soap and water for at least 20 seconds. If soap and water are not available, use alcohol-based hand brush sander. Avoid touching your eyes, nose, and mouth with unwashed hands. Household Hygiene Procedures: Avoid sharing personal household items such as dishes, glassware, cups, eating utensils, towels or bedding with other people or pets in your home. After use, these items should be washed with soap and hot water. Disinfect all high-touch surfaces every day with antibacterial cleaning solutions such as Lysol wipes, bleach, cleansers, etc. High-touch surfaces include tabletops, doorknobs, bathroom fixtures, toilets, phones, keyboards, tablets and bedside tables. Immediately clean any surfaces that may have blood, poop or body fluids on them, using antibacterial cleaning solutions such as Lysol wipes, bleach, cleansers, etc. If clothing or bedding come into contact with blood, poop or body fluids, they should be washed immediately. Follow the directions on the laundry detergent and clothing labels but hot water is recommended when possible. Stopping home isolation precautions: If possible, consult your doctor before stopping home isolation precautions. According to the CDC, you can discontinue home isolation precautions when you have met both of these criteria: Your fever and respiratory symptoms have been gone for 24 gideon (more content not included)... Normal [facility] Daily Progress Note-Surgeryo n 04-12-2022 Daily Progress Note-Surgery Service: Surgery Subjective Data: MELINA DÍAZ is a 46 year old Female who is Hospital Day # 2. Patient is admitted overnight. naussea is controlled with zofran and pain is controlle with oxy. Objective Data: Objective Information: T PRBPMAPSpO2 [id number]/7098% Date/Time04/12 8: 8: 8: 8: 8:51 Range(36.3C - 36.8C ) (66 - 80 ) (16 - 19 ) (108 - 120 )/ (67 - 79 ) (95% - 100% ) Pain reported at 04/12 3:00: 3 = Mild Weights 04/12 5:16: Weight in kg (Weight (kg)) 98.4 04/12 5:16: Weight in lbs ((lbs)) 216.9 04/12 1:08: BMI (kg/m2) (BMI (kg/m2)) 39.094 Physical Exam Narrative: Physical Exam: Constitutional: Well developed, awake/alert/oriented x3, no distress, alert and cooperative Eyes: PERRL, EOMI, clear sclera ENMT: mucous membranes moist, no apparent injury, no lesions seen Head/Neck: Neck supple, no apparent injury, trachea midline Respiratory/Thorax: Nonlabored breathing on RA Cardiovascular: Regular rate and rhythm on peripheral pulse Gastrointestinal: Nondistended, soft, RLQ tenderness, no rebound tenderness or guarding, no masses palpable Musculoskeletal: CARRENO Extremities: normal extremities, no cyanosis edema, contusions or wounds, no clubbing radial pulse 2+ b/l Psychological: Appropriate mood and behavior Skin: Warm and dry, no lesions, no rashes Medication: Medications: Continuous Medications ------ 1. Dextrose 5% - NaCL 0.45% Infusion: 1000 mL IntraVenous Scheduled Medications ------ 1. Levothyroxine: 50 microgram(s) Oral Daily 2. Methocarbamol Injectable: 500 mg IntraVenous Push Every 8 Hours 3. Pantoprazole Injectable: 40 mg IntraVenous Push Every 12 Hours 4. Sucralfate Oral Liquid: 1 gram(s) Oral 4 Times a Day PRN Medications ------ 1. diphenhydrAMINE Injectable: 25 mg IntraVenous Push Every 4 Hours 2. HYDROmorphone Injectable: 0.4 mg IntraVenous Push Every 4 Hours 3. Ondansetron Injectable: 4 mg IntraVenous Push Every 6 Hours Recent Lab Results: Results: I have reviewed these laboratory results: Complete Blood Count Trending View [id number] 04:44:00 12-Apr-2022 01:03:00 White Blood Cell Count5.2 4.9 Nucleated Erythrocyte Count0.0 0.0 Red Blood Cell Count4.24 4.21 HGB12.0 12.4 HCT37.1 37.6 MCV88 89 MCHC32.3 33.0 FWC482 217 RDW-CV14.9 H 14.8 H Comprehensive Metabolic Panel Trending View [id number] 04:44:00 12-Apr-2022 01:03:00 Glucose, Serum79 107 H NA141 139 K4.3 3.9 CL107 104 Bicarbonate, Serum25 26 Anion Gap, Serum13 13 BUN5 L 5 L CREAT0.49 L 0.60 GFR Female>90 >90 Calcium, Serum8.7 9.0 ALB3.6 4.0 ALKP78 84 T Pro6.0 L 6.1 L T Bili0.6 0.5 Alanine Aminotransferase, Serum14 17 Aspartate Transaminase, Serum16 18 Magnesium, Serum Trending View [id number] 04:44:00 12-Apr-2022 01:03:00 Magnesium, Serum1.76 1.96 Phosphorus, Serum 12-Apr-2022 04:44:00 ResultValue Phosphorus, Serum 3.9 Coronavirus 2019, Screen Asymptomatic 12-Apr-2022 02:13:00 ResultValue Fluid Source Nasal, Nasopharyngeal Coronavirus 2019,PCR NOT DETECTED Reference Range: Not Detected .This test has received FDA Emergency Use Authorization (EUA) and has been verified by [facility] ([facility]). This test is only authorized for the duration of time [place] Coagulation Screen 12-Apr-2022 01:03:00 ResultValue Prothrombin Time, Plasma 11.5 International Normalized Ratio, Plasma 1.0 Activated Partial Thromboplastin Time 31 Assessment and Plan: Code Status: Code StatusFull Code Assessment: Pt is 46 yo F s/p sleeve gastrectomy w/ revision RYGB and HHR by Dr. 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 Plan: - CLD - IVF - PPI - carafate - start lovenox for DVT prophylaix Discussed w/ Dr. Gong Attestation: Note Completion: I am a: Resident/Fellow Attending AttestationI saw and evaluated the patient. I personally obtained the frost and critical portions of the history and physical exam or was physically present for frost and critical portions performed by the resident/fellow. I reviewed the resident/fellows documentation and discussed the patient with the resident/fellow. I agree with the resident/fellows medical decision making as documented in the note. I personally evaluated the patient [id number] Electronic Signatures: Zhane Gong) (Signed 28-Apr-2022 06:54) Authored: Note Completion Co-Signer: Service, Subjective Data, Objective Data, Assessment and Plan, Note Completion Lukasz Mcclain (Resident)) (Signed 12-Apr-2022 09:06) Authored: Service, Subjective Data, Objective Data, Assessment and Plan, Note Completion Last Updated: 28-Apr-2022 06:54 by Zhane Gong) Normal [facility] Laboratory - Blood bankon ABO group Nom (Bld) A [facility] Work Phone: Blood group antibody screen Ql Negative [facility] Work Phone: [phone] Rh immune globulin screen (Bld) [Interp] Positive [facility] Work Phone: [phone] Laboratory - Chemistry and C hemistry - challengeon 04-12-2022 Albumin BCP dye [Mass/Vol] Canceled [facility] Work Phone: [phone] Albumin BCP dye [Mass/Vol] 3.6 g/dL 3.4 - 5.0 [facility] Work Phone: [phone] ALP [Catalytic activity/Vol] Canceled [facility] Work Phone: [phone] ALP [Catalytic activity/Vol] 78 U/L 33 - 110 [facility] Work Phone: [phone] ALT With P-5'-P [Catalytic activity/Vol] Canceled [facility] Work Phone: Comment on above: Patients treated wit h Sulfasalazine may generate falsely decreased results for ALT. ALT With P-5'-P [Catalytic activity/Vol] 14 U/L 7 - 45 [facility] Work Phone: Comment on above: Patients treated wit h Sulfasalazine may generate falsely decreased results for ALT. Anion gap [Moles/Vol] 13 mmol/L 10 - 20 [facility] Work Phone: AST With P-5'-P [Catalytic activity/Vol] Canceled [facility] Work Phone: AST With P-5'-P [Catalytic activity/Vol] 16 U/L 9 - 39 [facility] Work Phone: Bilirubin [Mass/Vol] Canceled [facility] Work Phone: Bilirubin [Mass/Vol] 0.6 mg/dL 0.0 - 1.2 [facility] Work Phone: [phone] Calcium [Mass/Vol] Canceled [facility] Work Phone: [phone] Calcium [Mass/Vol] 8.7 mg/dL 8.6 - 10.6 [facility] Work Phone: [phone] Chloride [Moles/Vol] Canceled [facility] Work Phone: [phone] Chloride [Moles/Vol] 107 mmol/L 98 - 107 [facility] Work Phone: [phone] CO2 [Moles/Vol] Canceled [facility] Work Phone: [phone] CO2 [Moles/Vol] 25 mmol/L 21 - 32 [facility] Work Phone: [phone] Creatinine [Mass/Vol] Canceled [facility] Work Phone: [phone] Creatinine [Mass/Vol] 0.49 mg/dL below low threshold See Below [facility] Work Phone: [phone] Comment on above: Reference Range: 0.5 0 - 1.05 Glucose [Mass/Vol] Canceled [facility] Work Phone: [phone] Glucose [Mass/Vol] 79 mg/dL 74 - 99 [facility] Work Phone: [phone] Potassium [Moles/Vol] Canceled [facility] Work Phone: [phone] 0 Potassium [Moles/Vol] 4.3 mmol/L 3.5 - 5.3 [facility] Work Phone: Protein [Mass/Vol] Canceled [facility] Work Phone: Protein [Mass/Vol] 6.0 g/dL below low threshold 6.4 - 8.2 [facility] Work Phone: [phone] Sodium [Moles/Vol] Canceled [facility] Work Phone: [phone] Sodium [Moles/Vol] 141 mmol/L 136 - 145 [facility] Work Phone: Urea nitrogen [Mass/Vol] Canceled [facility] Work Phone: [phone] Urea nitrogen [Mass/Vol] 5 mg/dL below low threshold 6 - 23 [facility] Work Phone: [phone] Albumin BCP dye [Mass/Vol] 4.0 g/dL 3.4 - 5.0 [facility] Work Phone: [phone] ALP [Catalytic activity/Vol] 84 U/L 33 - 110 [facility] Work Phone: [phone] ALT With P-5'-P [Catalytic activity/Vol] 17 U/L 7 - 45 [facility] Work Phone: [phone] Comment on above: Patients treated wit h Sulfasalazine may generate falsely decreased results for ALT. Anion gap [Moles/Vol] 13 mmol/L 10 - 20 [facility] Work Phone: [phone] AST With P-5'-P [Catalytic activity/Vol] 18 U/L 9 - 39 [facility] Work Phone: [phone] Bilirubin [Mass/Vol] 0.5 mg/dL 0.0 - 1.2 [facility] Work Phone: [phone] Calcium [Mass/Vol] 9.0 mg/dL 8.6 - 10.6 [facility] Work Phone: [phone] Chloride [Moles/Vol] 104 mmol/L 98 - 107 [facility] Work Phone: [phone] CO2 [Moles/Vol] 26 mmol/L 21 - 32 [facility] Work Phone: [phone] Creatinine [Mass/Vol] 0.60 mg/dL See Below [facility] Work Phone: [phone] Comment on above: Reference Range: 0.5 0 - 1.05 Glucose [Mass/Vol] 107 mg/dL above high threshold 74 - 99 [facility] Work Phone: Potassium [Moles/Vol] 3.9 mmol/L 3.5 - 5.3 [facility] Work Phone: [phone] Protein [Mass/Vol] 6.1 g/dL below low threshold 6.4 - 8.2 [facility] Work Phone: [phone] Sodium [Moles/Vol] 139 mmol/L 136 - 145 [facility] Work Phone: [phone] Urea nitrogen [Mass/Vol] 5 mg/dL below low threshold 6 - 23 [facility] Work Phone: [phone] Laboratory - Coagulationon 0 04-12-2022 aPTT Coag (PPP) [Time] 31 s 26 - 39 [facility] Work Phone: [phone] Comment on above: THE APTT IS NO LONGE R USED FOR MONITORING UNFRACTIONATED HEPARIN THERAPY. FOR MONITORING HEPARIN THERAPY, USE THE HEPARIN ASSAY. INR Coag (PPP) [Relative time] 1.0 {INR} 0.9 - 1.1 [facility] Work Phone: [phone] PT Coag (PPP) [Time] 11.5 s 9.8 - 13.4 [facility] Work Phone: [phone] Laboratory - Hematology and Cell countson 04-12-2022 Erythrocyte distribution width (RBC) [Ratio] 14.9 % above high threshold See Below [facility] Work Phone: [phone] Comment on above: Reference Range: 11. 5 - 14.5 Hematocrit (Bld) [Volume fraction] 37.1 % See Below [facility] Work Phone: [phone] Comment on above: Reference Range: 36. 0 - 46.0 Hemoglobin (Bld) [Mass/Vol] 12.0 g/dL See Below [facility] Work Phone: [phone] Comment on above: Reference Range: 12. 0 - 16.0 MCHC (RBC) [Mass/Vol] 32.3 g/dL See Below [facility] Work Phone: [phone] Comment on above: Reference Range: 32. 0 - 36.0 MCV (RBC) [Entitic vol] 88 fL 80 - 100 [facility] Work Phone: [phone] Platelets (Bld) [#/Vol] 215 10*3/uL 150 - 450 [facility] Work Phone: [phone] RBC (Bld) [#/Vol] 4.24 {x10E12/L} See Below [facility] Work Phone: [phone] Comment on above: Reference Range: 4.0 0 - 5.20 WBC (Bld) [#/Vol] 5.2 10*3/uL 4.4 - 11.3 [facility] Work Phone: [phone] Erythrocyte distribution width (RBC) [Ratio] 14.8 % above high threshold See Below [facility] Work Phone: [phone] Comment on above: Reference Range: 11. 5 - 14.5 Hematocrit (Bld) [Volume fraction] 37.6 % See Below [facility] Work Phone: [phone] Comment on above: Reference Range: 36. 0 - 46.0 Hemoglobin (Bld) [Mass/Vol] 12.4 g/dL See Below [facility] Work Phone: [phone] Comment on above: Reference Range: 12. 0 - 16.0 MCHC (RBC) [Mass/Vol] 33.0 g/dL See Below [facility] Work Phone: [phone] Comment on above: Reference Range: 32. 0 - 36.0 MCV (RBC) [Entitic vol] 89 fL 80 - 100 [facility] Work Phone: [phone] Platelets (Bld) [#/Vol] 217 10*3/uL 150 - 450 [facility] Work Phone: [phone] RBC (Bld) [#/Vol] 4.21 {x10E12/L} See Below [facility] Work Phone: [phone] Comment on above: Reference Range: 4.0 0 - 5.20 WBC (Bld) [#/Vol] 4.9 10*3/uL 4.4 - 11.3 [facility] Work Phone: [phone] MAGNESIUMon 04-12-2022 Magnesium [Mass/Vol] 1.76 mg/dL Normal 1.60 - 2.40 [facility] Comment on above: Performed By: #### M G #### [facility] [address] [place] [address] Magnesium [Mass/Vol] 1.96 mg/dL Normal 1.60 - 2.40 [facility] Comment on above: Performed By: #### R ENAL #### [facility] [address] [place] [address] Magnesium, Serumon Magnesium [Mass/Vol] 1.76 mg/dL See Below [facility] Work Phone: Comment on above: Reference Range: 1.6 0 - 2.40 Magnesium [Mass/Vol] 1.96 mg/dL See Below [facility] Work Phone: Comment on above: Reference Range: 1.6 0 - 2.40 No Panel Informationon 04-12 Canceled [facility] Work Phone: Comment on above: CALCULATIONS OF RANDY MATED GFR ARE PERFORMED USING THE 2020 CKD-EPI STUDY REFIT EQUATION WITHOUT THE RACE VARIABLE FOR THE IDMS-TRACEABLE CREATININE METHODS.https://jasn.asnjournals.org/content/early/ N.9303250125 >90 >90 [facility] Work Phone: Comment on above: CALCULATIONS OF RANDY MATED GFR ARE PERFORMED USING THE 2020 CKD-EPI STUDY REFIT EQUATION WITHOUT THE RACE VARIABLE FOR THE IDMS-TRACEABLE CREATININE METHODS.https://jasn.asnjournals.org/content/early/ N.2566952586 0.0 {/100_WBC} 0.0-0.0 [facility] Work Phone: >90 >90 [facility] Work Phone: Comment on above: CALCULATIONS OF RANDY MATED GFR ARE PERFORMED USING THE 2020 CKD-EPI STUDY REFIT EQUATION WITHOUT THE RACE VARIABLE FOR THE IDMS-TRACEABLE CREATININE METHODS.https://jasn.asnjournals.org/content/early/ N.3644353911 0.0 {/100_WBC} 0.0-0.0 [facility] Work Phone: PHOSPHORUSon 04-12-2022 Phosphate [Mass/Vol] 3.9 mg/dL Normal 2.5 - 4.9 [facility] Comment on above: Result Comment: The performance characteristics of phosphorus testing in heparinized plasma have been validated by the individual laboratory site where testing is performed. Testing on heparinized plasma is not approved by the FDA; however, such approval is not necessary. Performed By: #### P HOS ####[id number] [place] [address] Phosphorus, Serumon 04-12-20 22 Phosphate [Mass/Vol] 3.9 mg/dL 2.5 - 4.9 [facility] Work Phone: Comment on above: The performance ciara acteristics of phosphorus testing in heparinized plasma have been validated by the individual laboratory site where testing is performed. Testing on heparinized plasma is not approved by the FDA; however, such approval is not necessary. Provider Note - ED v3on 03-16 Provider Note - ED v3 Provider Note: Chart Review: ED NOTES ED NOTES: HPI: -Patient is a 46-year-old female status post sleeve gastrectomy who presents to the emergency department with abdominal pain nausea and vomiting. Patient was sent here by outside hospital for evaluation by surgery team. On arrival to the ED she is already been seen by the surgery team with planned admission. Patient is endorsing pain and inability to tolerate p.o. for the last 2 to 3 days. She denies any hematemesis she denies any diarrhea. She not had any melena or hematochezia. She endorses some occasional chills but does not think she has been febrile. She has chest pain that radiates up from her abdomen. She has not been able to eat today. ROS: A complete review of systems was performed and is otherwise negative except as noted in HPI PMHx: hypothyroid on levothyroxine PSHx: RYGB w/ HHR, sleeve gastrectomy, cholecystectomy, hysterectomy SHx: denies alcohol, smoking, illicit/recreational drugs FHx: not applicable to surgical issue Allergies: adhesive tape, toradol, tramadol, gabapentin Medications: levothyroxine, B12, Adderall PE: Vital signs reviewed in nursing triage note, EMR flow sheets, and at patient's bedside. Constitutional: Well developed, awake/alert/oriented x3, no distress, alert and cooperative Eyes: PERRL, EOMI, clear sclera ENMT: mucous membranes moist, no apparent injury, no lesions seen Head/Neck: Neck supple, no apparent injury, trachea midline Respiratory/Thorax: Nonlabored breathing on RA Cardiovascular: Regular rate and rhythm on peripheral pulse Gastrointestinal: Nondistended, soft, RLQ tenderness, no rebound tenderness or guarding, no masses palpable Musculoskeletal: CARRENO Extremities: normal extremities, no cyanosis edema, contusions or wounds, no clubbing radial pulse 2+ b/l Psychological: Appropriate mood and behavior Skin: Warm and dry, no lesions, no rashes ED Course/Treatment/MDM: Patient is a 46-year-old female history as above who presents emergency department with nausea vomiting and abdominal pain. On arrival to the ED she is already been evaluated by the surgery team and has planned admission. I spoke with the surgery resident who states that we just need labs ordered and they do not require any other imaging as she is already had imaging at outside hospital. Patient is given pain medication and antinausea medication and fluids in the emergency department and has an admit order placed. Patient requires no other treatment down the emergency department she is stable she will be continued to be treated for pain and nausea while she is down in the ED and is admitted for possible surgical intervention to our surgery team. Results: *See section(s) entitled ``Lab Results, ``Diagnostic Imaging Results Review for entirety. Clinical Impression: *See section entitled ``Clinical Impression Dispo - admit HISTORY OF PRESENTING ILLNESS MELINA is a 46 year old Female and was seen by me at 12-Apr-2022 00:46. Triage Information: Most recent Vital Sign Value Date Temp (F): 97.5 04-11-2022 20:15 Temp (C): 36.3 04-11-2022 20:15 Heart Rate (beats/min): 71 04-11-2022 20:15 Respirations (breaths/min): 19 04-11-2022 20:15 SpO2 (%): 100 04-11-2022 20:15 BP Systolic (mm Hg): 120 04-11-2022 20:15 BP Diastolic (mm Hg): 79 04-11-2022 20:15 PAST MEDICAL HISTORY ALLERGIES/INTOLERANCES: Allergy Allergen: Tramadol Hydrochloride Type: Drug Reaction: Facial Swelling Allergen: Toradol Type: Drug Reaction: Unknown Allergen: Tape - Adhesive, Bandaids, Paper Type: Environment Reaction: Other Allergen: Aspartame Type: Food Reaction: Other HEALTH HISTORY: No documented data. OUTPATIENT MEDICATIONS: Home Medications Review Status for Reconciliation: Not Done Med Status: No Current Medications Drug Name: B-12 1000 mcg oral tablet Instructions: 1000 microgram(s) injectable once a week-THURSDAY Drug Name: Synthroid 50 mcg (0.05 mg) oral tablet Instructions: 1 tab(s) orally once a day Drug Name: ALPRAZolam 0.5 mg oral tablet Instructions: 1 tab(s) orally once a day, As Needed Drug Name: Pepcid 20 mg oral tablet Instructions: 1 tab(s) orally 2 times a day Drug Name: Benadryl 25 mg oral tablet Instructions: 1 tab(s) orally once a day (at bedtime) Drug Name: promethazine 25 mg oral tablet Instructions: 1 tab(s) orally every 6 hours, As Needed Drug Name: gabapentin 250 mg/5 mL oral solution Instructions: 5 milliliter(s) orally 3 times a day Drug Name: sucralfate 1 g/10 mL oral suspension Instructions: 10 milliliter(s) orally 4 times a day Drug Name: omeprazole 2 mg/mL oral suspension Instructions: 10 milliliter(s) orally 2 times a day SIGNIFICANT EVENTS: Clinical Events Description:Surgical Procedure Additional Notes:Abdominal/Pelvic Procedure Robotic Description:Surgical Procedure Additiona (more content not included)... Normal [facility] Risk Screen - Adult Emergenc yon 04-12-2022 Risk Screen - Adult Emergency Preferred Language: Preferred Language: Preferred Language for Discussing Health Care (patient/designee)Serbian Advanced Directives: Advance Directive/DNRno Family Violence Adult: Abuse Screen: Are you or have you been threatened or abused physically, emotionally, or sexually by anyoneno Learning Assessment (Patient): Learning Assessment (Patient): Patient is Able to be Assessed for Learningyes Factors Influencing Readiness to Learnpain Factors that Impact Ability to Learnnone Devices/Methods Used to Communicatenone Learning Preferenceswritten material Cultural Considerationsnone Developmental Considerationsnone Anabaptist Considerationsnone Learning Assessment (Other Learner): Learning Assessment (Other Learner): Other learner availableno Pressure Injury/TB/Substance: Pressure Injury: Do you have a coughno Smoking Statusunable to assess Admission Risk Screen: Significant IndicatorsComplete CAGE: CAGE: Is this an injured patient at a Trauma Center ([facility]/Thomas/Gissell/Tiffanie/Khoa Ronquillo/Sabrina): yes C: Have you ever felt you needed to Cut down on your drinking: no A: Have people Annoyed you by criticizing your drinking: no G: Have you ever felt Guilty about drinking: no E: Have you ever felt you needed a drink first thing in the morning (Eye-ict development manager) to steady your nerves or to get rid of hangover: no Electronic Signatures: Richa Cannon (RN) (Signed 12-Apr-2022 03:45) Authored: Preferred Language, Advanced Directives, Family Violence Adult, Learning Assessment (Patient), Learning Assessment (Other Learner), Pressure Injury/TB/Substance, Pressure Injury, CAGE Last Updated: 12-Apr-2022 03:45 by Richa Cannon (RN) Normal [facility] TYPE + SCREENon 04-12-2022 ABO TYPE A Normal [facility] Comment on above: Performed By: #### T +S #### [facility] [address] [place] [address] RH TYPE Positive Normal [facility] Comment on above: Performed By: #### T +S #### [facility] [address] [place] [id number] Laboratory - Chemistry and C hemistry - challengeon 04-11-2022 Albumin BCP dye [Mass/Vol] 4.5 g/dL 3.4 - 5.0 NI-Jnnegzg-Ir [facility] Work Phone: ALP [Catalytic activity/Vol] 97 U/L 33 - 110 SL-Zenotxn-Hg [facility] Work Phone: ALT With P-5'-P [Catalytic activity/Vol] 19 U/L 7 - 45 LS-Ueivlat-Yj [facility] Work Phone: Comment on above: Patients treated wit h Sulfasalazine may generate falsely decreased results for ALT. Anion gap [Moles/Vol] 13 mmol/L 10 - 20 [facility] Work Phone: AST With P-5'-P [Catalytic activity/Vol] 19 U/L 9 - 39 AL-Lksainp-Lf [facility] Work Phone: [phone] Bilirubin [Mass/Vol] 0.6 mg/dL 0.0 - 1.2 MG-S urgery-Ge [facility] Work Phone: [phone] Calcium [Mass/Vol] 9.5 mg/dL 8.6 - 10.6 MG-Amrit taye-Ge [facility] Work Phone: [phone] Chloride [Moles/Vol] 102 mmol/L 98 - 107 MG-S urgery-[facility] Work Phone: [phone] CO2 [Moles/Vol] 29 mmol/L 21 - 32 MG-Surger y-[facility] Work Phone: [phone] Creatinine [Mass/Vol] 0.71 mg/dL See Below MG- Surgery-[facility] Work Phone: Comment on above: Reference Range: 0.5 0 - 1.05 Glucose [Mass/Vol] 82 mg/dL 74 - 99 MG-Amrit taye-Ge [facility] Work Phone: Potassium [Moles/Vol] 3.4 mmol/L below low threshold 3.5 - 5.3 ZU-Jphgbnj-Ok [facility] Work Phone: Protein [Mass/Vol] 7.4 g/dL 6.4 - 8.2 MG-Amrit taye-Ge [facility] Work Phone: [phone] Sodium [Moles/Vol] 141 mmol/L 136 - 145 MG-Amrit taye-Ge [facility] Work Phone: Urea nitrogen [Mass/Vol] 5 mg/dL below low threshold 6 - 23 QY-Pfzwmfc-Ld [facility] Work Phone: Laboratory - Hematology and Cell countson 04-11-2022 Erythrocyte distribution width (RBC) [Ratio] 14.9 % above high threshold See Below DV-Hsdqmsn-Cp [facility] Work Phone: Comment on above: Reference Range: 11. 5 - 14.5 Hematocrit (Bld) [Volume fraction] 41.7 % See Below LV-Fyazhvq-Np [facility] Work Phone: Comment on above: Reference Range: 36. 0 - 46.0 Hemoglobin (Bld) [Mass/Vol] 13.6 g/dL See Below KI-Ctxwwiq-Kl [facility] Work Phone: Comment on above: Reference Range: 12. 0 - 16.0 MCHC (RBC) [Mass/Vol] 32.6 g/dL See Below MG- Surgery-[facility] Work Phone: Comment on above: Reference Range: 32. 0 - 36.0 MCV (RBC) [Entitic vol] 90 fL 80 - 100 BV-Fjwuvrt-Lc [facility] Work Phone: Platelets (Bld) [#/Vol] 241 10*3/uL 150 - 450 AV-Kfphhzz-Vr [facility] Work Phone: RBC (Bld) [#/Vol] 4.62 {x10E12/L} See Below MG -Surgery-[facility] Work Phone: Comment on above: Reference Range: 4.0 0 - 5.20 WBC (Bld) [#/Vol] 5.2 10*3/uL 4.4 - 11.3 MG-Amrit taye-Ge [facility] Work Phone: No Panel Informationon 04-11 >90 >90 PE-Lxxkzio-Tr [facility] Work Phone: Comment on above: CALCULATIONS OF RANDY MATED GFR ARE PERFORMED USING THE 2020 CKD-EPI STUDY REFIT EQUATION WITHOUT THE RACE VARIABLE FOR THE IDMS-TRACEABLE CREATININE METHODS.https://jasn.asnjournals.org/content/early/ N.2767396635 0.0 {/100_WBC} 0.0-0.0 MG-Surgery -[facility] Work Phone: Triage - EDon 04-11-2022 Triage - ED Quick Triage: Are You unable to answer Have You Given In The Last 6 Weeksno Are You Currently Breastfeedingno Chart Review: ARRIVAL INFORMATION Mode of Arrival: private vehicle CHIEF COMPLAINT MELINA DÍAZ is a Female patient with a chief complaint of nausea, vomiting, diarrhea. Onset of the Complaint: 11-Apr-2022 20:16 Other Complaints: Enters ED reporting nausea, vomiting, & diarrhea since 04/04/22 Triage Date/Time: 11-Apr-2022 20:15 ELAINE: 3 Vital Signs: Temperature: 97.5F ( 36.3C) taken oral Blood Pressure: 120/79 Mean: Heart Rate: 71 Respiratory Rate: 19 Pulse Oximetry: 100% on room air, no respiratory support. Weight: pounds. Calculated kg. (stated) [place] Coma Scale: Best Eye Response: (E4) spontaneous Best Motor Response: (M6) obeys commands Best Verbal Response: (V5) oriented [place] Score: 15 Cough lasting greater than 3 weeks: no Allergies: no Mask applied: yes Patient has homicidal thoughts: no Risk Screens Suicide Risk Screen In the Past Month: Have you wished you were or wished you could go to sleep and not wake up no In the Past Month: Have you had any actual thoughts of killing yourself no In Your Lifetime: Have you ever done anything, started to do anything, or prepared to do anything to end your life no Suarez Fall Scale Screening Has the patient fallen before (or is the patient in the ED as a result of a fall) has not had a fall Does the patient have an impaired gait does not have impaired gait Is the patient cognitively impaired not cognitively impaired Interventions: Suarez Fall Interventions: LOW INTERVENTIONS: *patient oriented to surroundings and call system, * patient/family falls education completed and documented, *patients fall status communicated during bedside handoff, *whiteboard updated, *mode of toileting discussed with patient, *bed in low position with brakes locked, *call light in reach, * non-skid footwear TRAVEL HISTORY Travel History Coronavirus Screening: no exposure or symptoms Travel Exposure History: NO travel to International locations in the past 30 days PAIN Pain Scale Used: TAE Past Medical History: Past Medical History Reviewedyes Electronic Signatures: Claire Loya) (Signed 11-Apr-2022 21:44) Authored: Quick Triage, Risk Screens, Pain, Travel History, Chart Review, Scores, Past Medical History Last Updated: 11-Apr-2022 21:44 by Claire Loya) Normal [facility] Bariatric Surgery - Follow-U marck 03-21-2022 Bariatric Surgery - Follow-Up Diagnoses/Problems Assessed S/P gastric bypass (V45.86) (Z98.84) Bariatric surgery status (V45.86) (Z98.84) Patient Discussion/Summary Plan: Instructions / Recommendations: You should be drinking at least 60 oz of noncaffeinated fluid daily. Avoid carbonated beverages and those with sugar such as juices. You should be getting around 60 g of protein daily. Try to get as much of this through solid food as possible. Avoid shakes and use them when you are in a horne only. You should plan your meals for the week. You should make grocery lists and pack your lunches. Avoid fast food and picking convenience foods. Try to only eat what you have planned or packed. Do not skip meals. You will not be able to eat a large volume at any one meal. Therefore you will need to eat your protein and vegetables through the day. Aim for 3 meals and 2 snacks daily. Do not eat and drink at the same time. Eat 3 meals and 2 snacks daily. Eat your protein first, vegetables second and starch last. Set alarms to remind you to eat and drink throughout the day. After this surgery many patients do not feel hungry. By setting alarms you will remember it is time to eat or drink. Try to eat on this schedule to avoid weakness and malnutrition. Remember to take your vitamin supplements as directed. If you have any questions or concerns regarding your vitamins, please contact the electrical worker. Remember to take your multivitamins 2 times daily, once in the morning and once in the evening. Take your calcium 2-3 times daily, at least 2 hours apart from the multivitamin. You need to increase your daily exercise. Your goal is 60 minutes/day. This is part of a healthy lifestyle. You can try walking, swimming, going to a local gym, or even chair dancing! The more movement you have in your day, the healthier you will feel. Once you reach 60 minutes then increase the intensity of your exercise. Come to support groups. The schedule is online. Instructed to call the office at [phone] for concerns, questions, or problems. The patient was instructed to follow up in 3 months. You are 3 months s/p revision Please have your 3 month lab work completed today, we will call with any abnormal results. Be sure to take your multivitamins, your B12 and your calcium daily. Continue to work on exercise, increase the intensity and variety of your exercise routine, aim for 300mins a week total. Come to support groups. Follow-up with the Manufacture Specialist as needed. Follow-up in 3 months for your 6 month visit. Provider Impressions Pt 3 months post op c/o occasional N and emesis s/p GBP lost -45 Lbs diet ok exercise walking and swimming supplements ok no acute issues labs doine with PCP recs: cont low carb diet cont. exercise cont supplementation , PPI FU with dietitian join support group RTC 3 months Chief Complaint The patient is being seen for post operative visit. The patient is being seen today for a 6 week post-op visit. Type of surgery: Revision: SG -> RYGB. An interactive audio and video telecommunication system which permits real time communications between the patient (at the originating site) and provider (at the distant site) was utilized to provide this telehealth service. Verbal consent was requested and obtained from MELINA DÍAZ on this date, 01/31/2022 11:15 AM , for a telehealth visit. Adult Risk Screening Tobacco Screening: MELINA does not use tobacco. History of Present Illness Type of Surgery: revision: , surgery Date: 12/23/2021. Weight:. Initial weight: 260 lbs. Last visit weight: 260 lbs. Current weight: 208 lbs. Danielson weight 149 lbs. Target body weight 196 lbs. Food: Breakfast: premier protein shake, Snack: almonds, Lunch: 3 grilled shrimp, Dinner: premier protein shake, does not drink carbonated beverage Time to eat meals: 30-40 minutes Fluid intake: 64 oz. Diet Stage: regular food. Exercise frequency: patient exercises daily. Exercise includes swimming and walking. The patient exercises for 60 minutes per day. Symptoms: The patient reports loss of appetite, vomiting and food intolerance beef/red meats , but no hunger and no nausea . vomiting approx 3-4 days out of the week after consuming beef/red meats, egg. Supplements: taking multivitamins, taking B-12, taking calcium and taking Omeprazole. Patient does not use CPAP/BiPAP. Comorbidities: anxiety, back pain and esophageal reflux. GERD Patient has no reflux. Patient is using medications for reflux omeprazole. 46 yo female s/p revisional bariatric surgery on 12/23/[address] Bose. Conversion sleeve gastrectomy to gastric bypass, HHR.Has comorbidities of GERD mild COLE pt states she has been drinking shakes and eating fish for protein. c/o vomiting at least once, 3-4 days out of the week 20 minutes after consuming beef/red meats, eggs. Heartburn has improved with HHR. taking PPI daily. Had labs done at PCP office last week, pt will request (more content not included)... Normal [facility] Tobacco Screening.on 022 Tobacco use status CPHS b) No IW-[id number] rma MAC2 303 Work Phone: Bariatric Surgery - Follow-U [place] 01-31-2022 Bariatric Surgery - Follow-Up Diagnoses/Problems Assessed Bariatric surgery status (V45.86) (Z98.84) Obesity (BMI 30-39.9) (278.00) (E66.9) S/P gastric bypass (V45.86) (Z98.84) Patient Discussion/Summary Plan: Instructions / Recommendations: You should be drinking at least 60 oz of noncaffeinated fluid daily. Avoid carbonated beverages and those with sugar such as juices. You should be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 #### C MP ####[address] [place] [address] HCO3 (Bld) [Moles/Vol] 29 mmol/L Normal 21 - 32 [facility] Comment on above: Performed By: #### C MP ####[address] [place] [address] Potassium [Moles/Vol] 3.5 mmol/L Normal 3.5 - 5.3 [facility] Comment on above: Performed By: #### C MP ####[address] [place] [address] Protein [Mass/Vol] 5.1 g/dL Low 6.4 - 8.2 [facility] Comment on above: Performed By: #### C MP ####[address] [place] [address] Sodium [Moles/Vol] 140 mmol/L Normal 136 - 145 [facility] Comment on above: Performed By: #### C MP ####[address] [place] [address] Urea nitrogen [Mass/Vol] 8 mg/dL Normal 6 - 23 [facility] Comment on above: Performed By: #### C MP ####[place] [address] CORONAVIRUS 2019 BY PCRon SARS-CoV-2 (COVID-19) RNA MEAGAN+probe Ql (Unsp spec) Not detected Normal Not Detected [facility] Comment on above: Result Comment: . This test has received FDA Emergency Use Authorization (EUA) and has been verified by [facility]. This test is only authorized for the duration of time that circumstances exist to justify the authorization of the emergency use of in vitro diagnostic tests for the detection of SARS-CoV-2 virus and/or diagnosis of COVID-19 infection under section 564(b)(1) of the Act, 21 U.S.C. 360bbb-3(b)(1), unless the authorization is terminated or revoked sooner. [facility] is certified under CLIA-88 as qualified to perform high complexity testing. Testing is performed in the [facility] laboratory located at [address] [place] [address]. SARS-CoV-2/Flu/RSV Multiplex Test: Fact sheet for providers: https://www.fda.gov/media/004739/download Fact sheet for patients: https://www.fda.gov/media/208250/download Performed By: #### C OV19 ####[place] [address] DATE OF SYMPTOM ONSET [YYYYMMDD]? [id number] Normal [facility] Comment on above: Performed By: #### C OV19 ####[place] [address] Lab Specimen Source Nasal, Nasopharyngeal Normal [facility] Comment on above: Performed By: #### C OV19 ####[place] [address] Complete Blood Count + Diffe rentialon 12-26-2021 Basophils/100 WBC (Bld) 0.6 % 0.0 - 2.0 OR-Bfzjisb-Du lwell [facility] [address] Work Phone: Erythrocyte distribution width (RBC) [Ratio] 14.3 % See Below RT-Gpupaan-Cq lwell [facility] [address] [place] Work Phone: Comment on above: Reference Range: 11. 5 - 14.5 Hematocrit (Bld) [Volume fraction] 31.9 % below low threshold See Below DM-Qzjdbuw-Bn lwell [facility] Work Phone: Comment on above: Reference Range: 36. 0 - 46.0 Hemoglobin (Bld) [Mass/Vol] 10.1 g/dL below low threshold See Below LI-Xcnbzvp-Go lwell [facility] Work Phone: Comment on above: Reference Range: 12. 0 - 16.0 Lymphocytes/100 WBC (Bld) 33.2 % See Below PZ-Uxoxhez-Mj lwell [facility] Work Phone: Comment on above: Reference Range: 13. 0 - 44.0 MCHC (RBC) [Mass/Vol] 31.7 g/dL below low threshold See Below ZK-Wzewcra-Dm lwell [facility] Work Phone: Comment on above: Reference Range: 32. 0 - 36.0 MCV (RBC) [Entitic vol] 90 fL 80 - 100 LP-Notlsul-Fh lwell [facility] Work Phone: Monocytes/100 WBC (Bld) 11.6 % 2.0 - 10.0 CA-Bujdsdh-Mo lwell [facility] Work Phone: Neutrophils/100 WBC (Bld) 52.0 % See Below UV-Oocumab-Wn lwell [facility] Work Phone: Comment on above: Reference Range: 40. 0 - 80.0 Platelets (Bld) [#/Vol] 179 10*3/uL 150 - 450 MM-Akiwrlz-Qi lwell [facility] Work Phone: RBC (Bld) [#/Vol] 3.55 {x10E12/L} below low threshold See Below VG-Dgqhryp-Gt lwell [facility] Work Phone: Comment on above: Reference Range: 4.0 0 - 5.20 WBC (Bld) [#/Vol] 4.9 10*3/uL 4.4 - 11.3 MG-Amrit taye-Thomas [address] Work Phone: Complete Blood Count + Differential 0.03 {x10E9/L} See Below PM-Ybtyhmn-Zt lwell [address] Work Phone: Comment on above: Reference Range: 0.0 0 - 0.10 Complete Blood Count + Differential 0.12 {x10E9/L} See Below ZB-Ipndyiv-Pf lwell [address] Work Phone: Comment on above: Reference Range: 0.0 0 - 0.70 Complete Blood Count + Differential 0.57 {x10E9/L} See Below FT-Nrtdxuh-Og ell [address] Work Phone: Comment on above: Reference Range: 0.1 0 - 1.00 Complete Blood Count + Differential 1.63 {x10E9/L} See Below BC-Bpkdume-Jr lwell [address] Work Phone: Comment on above: Reference Range: 1.2 0 - 4.80 Complete Blood Count + Differential 2.55 {x10E9/L} See Below WJ-Pnikflg-Yr lwell [address] Work Phone: Comment on above: Reference Range: 1.2 0 - 7.70 Complete Blood Count + Differential 2.4 % 0.0 - 6.0 DF-Wzypfoj-Ff lwell [address] Work Phone: Complete Blood Count + Differential 0.2 % 0.0 - 0.9 YK-Zavlmgt-Mj lwell [address] Work Phone: Comment on above: Immature Granulocyte Count (IG) includes promyelocytes, myelocytes and metamyelocytes but does not include bands. Percent differential counts (%) should be interpreted in the context of the absolute cell counts (cells/L). Complete Blood Count + Differential 0.0 {/100_WBC} 0.0 - 0.0 EN-Wcbtoyk-Cn lwell [address] Work Phone: Coronavirus 2019 RNA by PCR, Symptomaticon 12-26-2021 Date and time of symptom onset [id number] MP-Jhhzfni-Jx tsew [facility] [address] Work Phone: Coronavirus 2019 RNA by PCR, Symptomatic Not detected Normal See Below HH-Uruqzhz-Q o stew I [address] Work Phone: Comment on above: SOURCE: Nasal, Nasop haryngealReference Range: Not Detected.This test has received FDA Emergency Use Authorization (EUA) and has been verified by [facility]. This test is only authorized for the duration of time that circumstances exist to justify the authorization of the emergency use of in vitro diagnostic tests for the detection of SARS-CoV-2 virus and/or diagnosis of COVID-19 infection under section 564(b)(1) of the Act, 21 U.S.C. 360bbb-3(b)(1), unless the authorization is terminated or revoked sooner. [facility] is certified under CLIA-88 as qualified to perform high complexity testing. Testing is performed in the [facility] laboratory located at [address] [place] [address].SARS-CoV-2/Flu/RSV Multiplex Test: Fact sheet for providers: https://www.fda.gov/media/193620/downloadFact sheet for patients: https://www.fda.gov/media/533857/download Covid 19 Resultson 2 SARS-CoV-2 (COVID-19) RNA MEAGAN+probe Ql (Unsp spec) NEGATIVE COVID-19 Test Coronaviruses are common world-wide and are the cause of many common colds. SARS-COV2 is a new coronavirus that began circulating worldwide in 2019 so we are calling it COVID-19. It has been estimated that four out of five patients with COVID-19 will recover at home without the need for medical attention. Symptoms of COVID-19 may include cough, fever, shortness of breath, loss of taste or smell and other flu-like symptoms including chills, sore muscles, sore throat, and headache. Severe illness is more common in older people and people with other health problems such as high blood pressure, obesity, and immune system problems. If the test is positive, you have COVID-19. You will be contacted by the ordering physicians office and instructed to remain on home isolation, in accordance with CDC guidelines. You may also be contacted by the [facility] to see if any of your close contacts may have been exposed to the virus and need to quarantine. If the test is negative, you likely do not have COVID-19 at this time, but you still may have a different illness that can spread to other people (like Influenza, or the Flu) and could still be at risk for getting COVID-19. We recommend that you stay away from other people to limit the spread of illness until your symptoms are improving and you are fever-free for 24 hours without the use of fever lowering medications such as acetaminophen or ibuprofen. No test is 100% accurate so if you are still concerned you may have COVID-19, talk to your doctor about the need to continue to stay away from others. Medicines Unless your provider told you not to use the following: Acetaminophen (Tylenol and others) is generally safe. Anti-inflammatory medications, such as Ibuprofen (Advil or Motrin) or Naproxen (Aleve) can also be used. Suux-aew-wcyjybd cough and cold medicines can be used according to the instructions on the package. Some ksxk-lzc-ghizark medicines also contain acetaminophen. Make sure you are not taking more than your recommended dose. For those not hospitalized, there is no specific treatment available for this illness. Antibiotics do not treat Coronaviruses. Follow-Up Follow up with your doctor by scheduling a virtual visit or consider follow-up at one of our urgent care fever clinics. If you are having difficulty breathing, or are very weak and having difficulty standing, this is a medical emergency. Call 911 or have someone take you to the nearest emergency room immediately. If possible, wear a facemask. Additional guidance from the CDC for patients who tested POSITIVE for COVID-19 How to isolate: Isolate yourself in a specific room at home and limit your contact with others. Use a separate bathroom from other members of the household, when possible. Leave home only to get essential medical care. Do not go to work, school or public areas. Avoid using public transportation, ride-sharing, or taxis. Restrict contact with pets and other animals. If you must care for your pet or be around animals while you are sick, wash your hands before and after your interaction and wear a facemask. Make sure that shared spaces in the home have good airflow, such as by an air conditioner or an opened window, weather permitting. Personal Hygiene Procedures: Wear a face mask when in the same room as other people or pets. If a face mask interferes with your breathing, others should wear a mask when sharing space with you. Frequent hand-washing: wash your hands with soap and water for at least 20 seconds. If soap and water are not available, use alcohol-based hand brush sander. Avoid touching your eyes, nose, and mouth with unwashed hands. Household Hygiene Procedures: Avoid sharing personal household items such as dishes, glassware, cups, eating utensils, towels or bedding with other people or pets in your home. After use, these items should be washed with soap and hot water. Disinfect all high-touch surfaces every day with antibacterial cleaning solutions such as Lysol wipes, bleach, cleansers, etc. High-touch surfaces include tabletops, doorknobs, bathroom fixtures, toilets, phones, keyboards, tablets and bedside tables. Immediately clean any surfaces that may have blood, poop or body fluids on them, using antibacterial cleaning solutions such as Lysol wipes, bleach, cleansers, etc. If clothing or bedding come into contact with blood, poop or body fluids, they should be washed immediately. Follow the directions on the laundry detergent and clothing labels but hot water is recommended when possible. Stopping home isolation precautions: If possible, consult your doctor before stopping home isolation precautions. According to the CDC, you can discontinue home isolation precautions when you have met both of these criteria: Your fever and respiratory symptoms have been gone for 24 gideon (more content not included)... Normal [facility] Daily Progress Note-Surgeryo n 12-26-2021 Daily Progress Note-Surgery Service: Surgery Subjective Data: ARJUNMELINA is a 46 year old Female who is Hospital Day # 4 and POD #3 for Laparoscopic conversion of gastric sleeve to gelacio-en-y gastric bypass, hiatal hernia repair, TAP block, upper endoscopy. Additional Information: No acute events over night. Nausea adequately controlled. Has been tolerating 5-6 oz of liquids per hour. Reports an expected degree of post operative pain. Has new reports of productive cough. No other acute complaints. Objective Data: Objective Information: T PRBPMAPSpO2 [id number]% Date/Time12/26 7: 7: 23:404 7: 7: 7:48 Range(36.4C - 37.4C ) (67 - 147 ) (16 - 18 ) (132 - 156 )/ (68 - 88 ) (93 - 114 ) (79% - 99% ) Highest temp of 37.4 C was recorded at 12/25 19:59 Pain reported at 12/26 8:00: 7 = Severe Physical Exam Narrative: Physical Exam: Physical Exam: Constitutional: Morbid Obesity, no distress, alert and cooperative Eyes: EOMI, clear sclera Head/Neck: Neck supple, no apparent injury, No JVD, trachea midline Respiratory/Thorax: good chest expansion, thorax symmetric Cardiovascular: Regular heart rate Abdominal: Incisions intact and clean, nondistended, soft, normal incisional tenderness, large pannus Musculoskeletal: ROM intact, no joint swelling Extremities: normal extremities, no cyanosis edema, contusions or wounds, no clubbing Neurological: alert and oriented x3, intact senses, Psychological: Appropriate mood and behavior Skin: Warm and dry, no lesions, no rashes Recent Lab Results: Results: CBC: 12/26/2021 07:11 \ Hgb / \ 10.1 L / WBC Plt 4.9 179 / Hct \ / 31.9 L \ RBC: 3.55 L MCV: 90 Neutrophil %: 52.0 CMP: 12/26/2021 07:11 NA+ Cl- BUN / 140 104 8 / ------ Glucose - 80 K+ HCO3- Creat \ 3.5 29 0.65 \ \ T Bili / \ 0.6 / AST x ---- x ALT 31 x ---- x 37 / Alk P \ / 52 \ Calcium : 8.0 L Anion Gap : 11 Albumin : 3.3 L T Protein : 5.1 L Assessment and Plan: Code Status: Code StatusFull Code Assessment: POD 3 after conversion of gastric sleeve to RYGB. No leak or obstruction on esophagram. No major events over night. Patient is tolerating full liquids with adequate control of nausea. New report of productive cough with some subjective wheezing. No fever or leukocytosis. Potential PM discharge pending evaluation of respiratory symptoms. Impression 1: POD 3 after conversion of gastric sleeve to RYGB Plan for Impression 1: - Follow oral intake today. Max 8 oz per hour (minimum of 4-5 oz per hour to qualify for discharge) - Pain control as needed - Anti-emetic therapy with Zofran - Decrease IV fluid support with adequate oral intake - Encourage IS/Ambulation - Discharge planning for today Impression 2: Productive cough Plan for Impression 2: Subjective wheezing, no fever or leukocytosis - CXR - COVID test - potential empiric abx pending cxr and symptoms today Attestation: Note Completion: I am a: Resident/Fellow Attending AttestationI saw and evaluated the patient. I personally obtained the frost and critical portions of the history and physical exam or was physically present for frost and critical portions performed by the resident/fellow. I reviewed the resident/fellows documentation and discussed the patient with the resident/fellow. I agree with the resident/fellows medical decision making as documented in the note. I personally evaluated the patient [id number] Electronic Signatures: Brittany Bose) (Signed 06-Jan-2022 11:15) Authored: Note Completion Co-Signer: Service, Subjective Data, Objective Data, Assessment and Plan, Note Completion Leslie Tony (Fellow)) (Signed 26-Dec-2021 08:29) Authored: Service, Subjective Data, Objective Data, Assessment and Plan, Note Completion Last Updated: 06-Jan-2022 11:15 by Brittany Bose) Normal [facility] Discharge [id number] Discharge Profile2 Discharge Orders: Anticipated Discharge Date: Anticipated Discharge [id number] Anticipated Discharge Time17:30 Problem List: Additional Dx: Morbid obesity: Catalog Name: Morbid (severe) obesity due to excess calories Significant Events: Surgical Procedure: Clinical Events This Visit, 23-Dec-2021, Laparoscopic conversion of gastric sleeve to gelacio-en-y gastric bypass, hiatal hernia repair, TAP block, upper endoscopy Hospital Providers: Provider RoleProvider Name Brittany Maria DNAR: Code Status at Discharge: Full Code Diet: Dietfull liquids Additional Orders: Additional Instructions Activity instructions: - No lifting, pulling, or pushing objects greater than 15 pounds for 4 weeks. - Activity otherwise as tolerated. - You may shower. Soap and water may run over your incisions. Pat dry. No submerging in baths or swimming (activities that keep your incisions underwater) for at least two weeks. - You may not drive while taking narcotics. Diet: - You will go home on a full liquid diet (similar to the diet you were on your final day in the hospital) - You will stay on this full liquid diet for two weeks. Acceptable full liquids include protein shakes, sugar free jello, sugar free pudding, and creamy soups (no chunks). You will continue to drink clear liquids including water and crystal light. You should aim for 64 ounces of fluid per day, with about half of this being full liquids and half of this being clear liquids. Do not exceed 8 oz per hour. - After two weeks, you should have a discussion with the electrical worker about progressing to a combination of full liquid and pureed foods. - Take fiber daily - For further information, follow the diet instructions listed in your bariatric surgery instruction packet. Medications: - Medications should be crushed and mixed with full liquids. Capsules may be opened and mixed with full liquids. - Extended release medications should not be taken. Please contact your primary care physician to convert extended release medications to immediate release form. - Take 650mg Tylenol (liquid preferred) every 6 hours for pain. Take between doses of your opioid pain medication. Try to limit the use of your opioid pain medication and only take as needed. - Slowly add your vitamins to your daily medication regimen as tolerated. You do not have to take them within the first few days after surgery if they are causing you nausea or other problems. - If you have medications that you still cannot tolerate by your first visit with your surgeon or dietitian, please discuss this. Call Provider If: - Breathing faster or harder than normal. - Fever of 100.4 F (38 C) or higher or feeling of chills. - Feeling very sleepy and difficult to awaken. - Inability to drink or significant decrease in ability to drink since discharge. - Vomiting (throwing up) and not able to eat or drink for 12 hours. - Urinating much less than your normal. - More than 4 loose, watery bowel movements in 24 hours (diarrhea). - Any new concerning symptoms. Hospital Course (Home Care/Gold Form): Hospital Course: Hospital Course: include significant abnormal lab values Patient presented to the hospital for scheduled gastric bypass. The procedure was carried out without complication. No major events POD#0. POD#1 esophogram was negative for signs of leak or obstruction. Diet advanced to maximum of 4 oz per hour without issue. POD#2 diet was advanced to maximum of 8 oz per hour. Patient was slow to progress with PO intake, but met goals by POD #3. Some reports of productive cough POD #3. No fever or leukocytosis. Covid test performed and negative. CXR performed and suggestive of minimal edema. IV fluids stopped. Patient with good O2 saturation in AM of 4/15 and feeling ready for discharge. Encouraged to use IS and educated on signs of pulmonary infection. No other major events. Discharged home on POD#4. Patient did well post operatively overall. Provider FINAL REVIEW of Orders: Final Review: Final Review of Medication Reconciliation and Orders Completedby Physician Reviewing ProviderLeslie Tony MD (Fellow) at 26-Dec-2021 16:43:15 Appointments: Follow-Up Appointment 01: Physician/Dept/ServiceDr. Brittany Bose Call to Schedule inCall the office to confirm that you have a follow up the week after discharge [facility] Actual Experience Phone [phone] Electronic Signatures: Leslie Tony ( (Fellow)) (Signed 26-Dec-2021 16:43) Authored: Discharge Orders, Hospital Course (Home Care/Gold Form), Provider FINAL REVIEW of Orders, Appointments, Gold Form - Chorus Dancer Summary Last Updated: 26-Dec-2021 16:43 by Leslie Tony ( (Fellow)) Normal [facility] Laboratory - Chemistry and C hemistry - challengeon 12-26-2021 Albumin BCP dye [Mass/Vol] 3.3 g/dL below low threshold 3.4 - 5.0 RR-Jxsmbho-Mx lwell [facility] Work Phone: ALP [Catalytic activity/Vol] 52 U/L 33 - 110 YN-Hrjhrig-Qm lwell I [facility] Work Phone: ALT With P-5'-P [Catalytic activity/Vol] 37 U/L 7 - 45 DW-Lrmbgyd-En lwell I [facility] Work Phone: Comment on above: Patients treated wit h Sulfasalazine may generate falsely decreased results for ALT. Anion gap [Moles/Vol] 11 mmol/L 10 - 20 MG- Surgery-Thomas lwell I [facility] Work Phone: AST With P-5'-P [Catalytic activity/Vol] 31 U/L 9 - 39 OP-Igsatam-Qw lwell I [facility] Work Phone: Bilirubin [Mass/Vol] 0.6 mg/dL 0.0 - 1.2 MG-S urgery-Thomas lwell [address] Work Phone: Calcium [Mass/Vol] 8.0 mg/dL below low threshold 8.6 - 10.3 XD-Pcxrvdn-Bm lwell [address] Work Phone: Chloride [Moles/Vol] 104 mmol/L 98 - 107 MG-S urgery-Thomas lwell I [facility] Work Phone: CO2 [Moles/Vol] 29 mmol/L 21 - 32 MG-Surger y-Thomas lwell [address] Work Phone: Creatinine [Mass/Vol] 0.65 mg/dL See Below MG- Surgery-Thomas lwell [facility] Work Phone: Comment on above: Reference Range: 0.5 0 - 1.05 Glucose [Mass/Vol] 80 mg/dL 74 - 99 MG-Amrit taye-Thomas lwell [address] Work Phone: Potassium [Moles/Vol] 3.5 mmol/L 3.5 - 5.3 MG- Surgery-[facility] [address] [place] Work Phone: Protein [Mass/Vol] 5.1 g/dL below low threshold 6.4 - 8.2 WB-Udfjtnm-Bb lwell [facility] [place] Work Phone: Sodium [Moles/Vol] 140 mmol/L 136 - 145 MG-Amrit taye-[facility] [place] Work Phone: Urea nitrogen [Mass/Vol] 8 mg/dL 6 - 23 VL-Qqrxxrt-Vz lwell [facility] [place] Work Phone: No Panel Informationon 12-26 >90 >90 BY-Mdvcohb-Js lwell [facility] [place] Work Phone: Comment on above: CALCULATIONS OF RANDY MATED GFR ARE PERFORMED USING THE 2020 CKD-EPI STUDY REFIT EQUATION WITHOUT THE RACE VARIABLE FOR THE IDMS-TRACEABLE CREATININE METHODS.https://jasn.asnjournals.org/content// N.4042105966 Order Reconciliationon 12-26 Order Reconciliation Page 1 Discharge Reconciliation Document Reconciliation Type: Discharge requested on behalf of Leslie Tony (Fellow) done by Leslie Tony ( (Fellow)) Discharge - Partial Reconciliation: 26-Dec-2021 10:19 by: Leslie Tony ( (Fellow)) Discharge - Reconciliation: 26-Dec-2021 16:31 by: Leslie Tony ( (Fellow)) Discharge - Reset to Incomplete: 26-Dec-2021 16:47 by: Leslie Tony ( (Fellow)) Discharge - Reconciliation: 26-Dec-2021 16:47 by: Leslie Tony (Fellow)) Home Medications EnteredHOME MEDICATIONS AT DISCHARGE DateReconciliation Comment/ Additional Information ALPRAZolam 0.5 mg oral tablet 1 tab(s) orally once a day, As Needed 25-May-2021 00:44 ALPRAZolam 0.5 mg oral tablet 1 tab(s) orally once a day, As Needed 25-May-2021 00:44 ALPRAZolam 0.5 mg oral tablet is continued as ALPRAZolam 0.5 mg oral tablet B-12 1000 mcg oral tablet 1000 microgram(s) injectable once a week-25-May-2021 00:40 B-12 1000 mcg oral tablet 1000 microgram(s) injectable once a week-25-May-2021 00:40 B-12 1000 mcg oral tablet is continued as B-12 1000 mcg oral tablet Benadryl 25 mg oral tablet 1 tab(s) orally once a day (at bedtime) 01-Jun-2021 15:17 Benadryl 25 mg oral tablet 1 tab(s) orally once a day (at bedtime) 01-Jun-2021 15:17 Benadryl 25 mg oral tablet is continued as Benadryl 25 mg oral tablet gabapentin 300 mg oral capsule 1 cap(s) orally 3 times a day 30-May-2021 13:16 gabapentin 250 mg/5 mL oral solution 5 milliliter(s) orally 3 times a day 26-Dec-2021 10:14 Discontinued; Copy/Discontinue gabapentin 300 mg oral capsule is replaced with a prescription for gabapentin 250 mg/5 mL oral solution oxyCODONE 5 mg oral capsule 1 cap(s) orally every 6 hours, As Needed 25-May-2021 00:41 oxyCODONE 5 mg oral capsule 1 cap(s) orally every 6 hours, As Needed 25-May-2021 00:41 oxyCODONE 5 mg oral capsule is continued as oxyCODONE 5 mg oral capsule Pepcid 20 mg oral tablet 1 tab(s) orally 2 times a day 30-May-2021 13:14 Pepcid 20 mg oral tablet 1 tab(s) orally 2 times a day 30-May-2021 13:14 Pepcid 20 mg oral tablet is continued as Pepcid 20 mg oral tablet promethazine 25 mg oral tablet 1 tab(s) orally every 6 hours, As Needed 01-Jun-2021 15:18 promethazine 25 mg oral tablet 1 tab(s) orally every 6 hours, As Needed 01-Jun-2021 15:18 promethazine 25 mg oral tablet is continued as promethazine 25 mg oral tablet sucralfate 1 g/10 mL oral suspension 10 milliliter(s) orally 4 times a day - 4 Times a Day Before Meals 30-May-2021 13:12 Discontinued; Discontinue from ORM sucralfate 1 g/10 mL oral suspension is not required Synthroid 50 mcg (0.05 mg) oral tablet 1 tab(s) orally once a day 25-May-2021 00:43 Synthroid 50 mcg (0.05 mg) oral tablet 1 tab(s) orally once a day 25-May-2021 00:43 Synthroid 50 mcg (0.05 mg) oral tablet is continued as Synthroid 50 mcg (0.05 mg) oral tablet Current OrdersDateHOME MEDICATIONS AT DISCHARGE DateReconciliation Comment/ Additional Information Acetaminophen Oral Liquid (TYLENOL)DOSE = 650 mg Oral Every 4 Hours, PRN Pain - Mild (1-3) 22-Dec-2021 21:28 Acetaminophen Oral Liquid is not required Albuterol 2.5 mg/ 3 mL Nebulizer Soln (PROVENTIL)DOSE = 3 mL Inhalation Every 2 Hours via Nebulizer, PRN Wheezing 22-Dec-2021 21:28 Albuterol 2.5 mg/ 3 mL Nebulizer Soln is not required Albuterol 2.5 mg/ 3 mL Nebulizer Soln (PROVENTIL)DOSE = 3 mL Inhalation Once via Nebulizer, PRN Wheezing (PACU)Clinician Notes: Anita-operative order ONLY 23-Dec-2021 17:42 Albuterol 2.5 mg/ 3 mL Nebulizer Soln is not required ALPRAZolam Tablet (XANAX)DOSE = 0.5 mg Oral Every 8 Hours, PRN Anxiety 24-Dec-2021 13:20 ALPRAZolam is not required Cyclobenzaprine Tablet (FLEXERIL)DOSE = 5 mg Oral 3 Times a Day, PRN Muscular abdominal pain 25-Dec-2021 15:44 Cyclobenzaprine is not required diphenhydrAMINE Injectable (BENADRYL)DOSE = 25 mg IntraVenous Push Every 8 Hours, PRN ItchingClinician Notes: Also OK to use at night for insomnia 23-Dec-2021 20:32 diphenhydrAMINE Injectable is not required guaiFENesin Oral Liquid (ROBITUSSIN)DOSE = 400 mg Oral Every 8 Hours, PRN Cough 26-Dec-2021 16:47 guaiFENesin Oral Liquid is not required Heparin SubCutaneous DOSE = 5,000 unit(s) SubCutaneous Every 8 HoursClinician Notes: Start 8 hours after preop dose givenNotes from Pharmacy: Note Concentration Prior to Administration 22-Dec-2021 21:28 Heparin SubCutaneous is not required hydrALAZINE (APRESOLINE) Injectable DOSE = 5 mg IntraVenous Push Every 4 Hours, PRN SBP >160 22-Dec-2021 21:28 hydrALAZINE (APRESOLINE) Injectable is not required HYDROmorphone Injectable (DILAUDID)DOSE = 0.5 mg IntraVenous Push Every 2 Hours, PRN Breakthrough pain 22-Dec-2021 21:28 HYDROmorphone Injectable is not required Ipratropium 500 microgram/ 2.5 mL Neb Soln (ATROVENT)DOSE = 2.5 mL Inhalation Once via NebulizerClinician Notes: Anita-operative order ONLY 1 (more content not included)... Normal [facility] Radiologyon 12-26-2021 XR Chest Single view Normal MG-S Vicente mathias [place] [address] [place] Work Phone: CBC AND DIFFERENTIALon 12-25 % AUTOMATED IMMATURE GRAN 0.3 % Normal 0.0 - 0.9 [facility] Comment on above: Result Comment: Yanni ture Granulocyte Count (IG) includes promyelocytes, myelocytes and metamyelocytes but does not include bands. Percent differential counts (%) should be interpreted in the context of the absolute cell counts (cells/L). Performed By: #### C BCDF ####[facility] [place] [address] Basophils (Bld) [#/Vol] 0.06 10*3/uL Normal 0.00 - 0.10 [facility] Comment on above: Performed By: #### C BCDF ####[address] [place] [address] Basophils/100 WBC (Bld) 0.9 % Normal 0.0 - 2.0 [facility] Comment on above: Performed By: #### C BCDF ####[address] [address] Eosinophils (Bld) [#/Vol] 0.06 10*3/uL Normal 0.00 - 0.70 [facility] Comment on above: Performed By: #### C BCDF ####[address] [address] Eosinophils/100 WBC (Bld) 0.9 % Normal 0.0 - 6.0 [facility] Comment on above: Performed By: #### C BCDF ####[address] [address] Erythrocyte distribution width (RBC) [Ratio] 14.3 % Normal 11.5 - 14.5 [facility] Comment on above: Performed By: #### C BCDF ####[address] [address] Hematocrit (Bld) [Volume fraction] 34.0 % Low 36.0 - 46.0 [facility] Comment on above: Performed By: #### C BCDF ####[address] [address] Hemoglobin (Bld) [Mass/Vol] 10.7 g/dL Low 12.0 - 16.0 [facility] Comment on above: Performed By: #### C BCDF ####[address] [address] Lymphocytes (Bld) [#/Vol] 2.11 10*3/uL Normal 1.20 - 4.80 [facility] Comment on above: Performed By: #### C BCDF ####[address] [address] Lymphocytes/100 WBC (Bld) 30.8 % Normal 13.0 - 44.0 [facility] Comment on above: Performed By: #### C BCDF ####[address] [address] MCHC (RBC) [Mass/Vol] 31.5 g/dL Low 32.0 - 36.0 [facility] Comment on above: Performed By: #### C BCDF ####[id number] [place] [address] MCV (RBC) [Entitic vol] 90 fL Normal 80 - 100 [facility] Comment on above: Performed By: #### C BCDF ####[facility] [place] [address], [place] [address] Monocytes (Bld) [#/Vol] 0.57 10*3/uL Normal 0.10 - 1.00 [facility] Comment on above: Performed By: #### C BCDF ####[address] [place] [address] Monocytes/100 WBC (Bld) 8.3 % Normal 2.0 - 10.0 [facility] Comment on above: Performed By: #### C BCDF ####[address] [place] [address] Neutrophils (Bld) [#/Vol] 4.04 10*3/uL Normal 1.20 - 7.70 [facility] Comment on above: Performed By: #### C BCDF ####[address] [place] [address] Neutrophils/100 WBC (Bld) 58.8 % Normal 40.0 - 80.0 [facility] Comment on above: Performed By: #### C BCDF ####[address] [place] [address] NUCLEATED RBC 0.0 /100 WBC Normal 0.0 - 0.0 [facility] Comment on above: Performed By: #### C BCDF ####[address] [address] Platelets (Bld) [#/Vol] 216 10*3/uL Normal 150 - 450 [facility] Comment on above: Performed By: #### C BCDF ####[address] [place] [address] RBC 3.78 x10E12/L Low 4.00 - 5.20 [facility] Comment on above: Performed By: #### C BCDF ####[address] [place] [address] WBC (Bld) [#/Vol] 6.9 10*3/uL Normal 4.4 - 11.3 [facility] Comment on above: Performed By: #### C BCDF ####[facility] [place] [address] COMPREHENSIVE PANELon 2021 Albumin [Mass/Vol] 3.7 g/dL Normal 3.4 - 5.0 [facility] Comment on above: Performed By: #### C MP ####[facility] [place] [address] ALP [Catalytic activity/Vol] 55 U/L Normal 33 - 110 [facility] Comment on above: Performed By: #### C MP ####[address] [address] [place] [address] ALT [Catalytic activity/Vol] 35 U/L Normal 7 - 45 [facility] Comment on above: Result Comment: Donita ents treated with Sulfasalazine may generate falsely decreased results for ALT. Performed By: #### C MP ####[address] [place] [address] Anion gap [Moles/Vol] 10 mmol/L Normal 10 - 20 [facility] Comment on above: Performed By: #### C MP ####[facility] [place] [address] AST [Catalytic activity/Vol] 39 U/L Normal 9 - 39 [facility] Comment on above: Performed By: #### C MP ####[address] [place] [address] Bilirubin [Mass/Vol] 0.6 mg/dL Normal 0.0 - 1.2 [facility] Comment on above: Performed By: #### C MP ####[address] [place] [address] Calcium [Mass/Vol] 8.8 mg/dL Normal 8.6 - 10.3 [facility] Comment on above: Performed By: #### C MP ####[place] [address] [place] [address] Chloride [Moles/Vol] 105 mmol/L Normal 98 - 107 [facility] Comment on above: Performed By: #### C MP ####[address] [address] [place] [address] Creatinine [Mass/Vol] 0.73 mg/dL Normal 0.50 - 1.05 [facility] Comment on above: Performed By: #### C MP ####[facility] [place] [address], [place] [address] eGFR FEMALE >90 Normal >90 [facility] Comment on above: Result Comment: CALC ULATIONS OF ESTIMATED GFR ARE PERFORMED USING THE 2020 CKD-EPI STUDY REFIT EQUATION WITHOUT THE RACE VARIABLE FOR THE IDMS-TRACEABLE CREATININE METHODS. https://jasn.asnjournals.org/content/early//ASN.816094 6975 Performed By: #### C MP ####[address] [place] [address] Glucose [Mass/Vol] 86 mg/dL Normal 74 - 99 [facility] Comment on above: Performed By: #### C MP ####[address] [place] [address] HCO3 (Bld) [Moles/Vol] 29 mmol/L Normal 21 - 32 [facility] Comment on above: Performed By: #### C MP ####[address] [place] [address] Potassium [Moles/Vol] 3.6 mmol/L Normal 3.5 - 5.3 [facility] Comment on above: Performed By: #### C MP ####[address] [place] [address] Protein [Mass/Vol] 5.7 g/dL Low 6.4 - 8.2 [facility] Comment on above: Performed By: #### C MP ####[address] [place] [address] Sodium [Moles/Vol] 140 mmol/L Normal 136 - 145 [facility] Comment on above: Performed By: #### C MP ####[address] [place] [address] Urea nitrogen [Mass/Vol] 13 mg/dL Normal 6 - 23 [facility] Comment on above: Performed By: #### C MP ####[address] [place] [address] Complete Blood Count + Diffe atifon 12-25-2021 Basophils/100 WBC (Bld) 0.9 % 0.0 - 2.0 PF-Awtlzqj-Sn lwell [facility] Work Phone: Erythrocyte distribution width (RBC) [Ratio] 14.3 % See Below KF-Qjuwftz-Bq lwell [facility] Work Phone: Comment on above: Reference Range: 11. 5 - 14.5 Hematocrit (Bld) [Volume fraction] 34.0 % below low threshold See Below IT-Bdgochm-Ib lwell I [facility] Work Phone: Comment on above: Reference Range: 36. 0 - 46.0 Hemoglobin (Bld) [Mass/Vol] 10.7 g/dL below low threshold See Below XD-Dasshpr-Vt lwell I [facility] Work Phone: Comment on above: Reference Range: 12. 0 - 16.0 Lymphocytes/100 WBC (Bld) 30.8 % See Below NU-Vhneyts-Ga lwell I [facility] Work Phone: Comment on above: Reference Range: 13. 0 - 44.0 MCHC (RBC) [Mass/Vol] 31.5 g/dL below low threshold See Below TP-Lfzpkjo-Ck lwell I [facility] Work Phone: Comment on above: Reference Range: 32. 0 - 36.0 MCV (RBC) [Entitic vol] 90 fL 80 - 100 YV-Sjvhzzo-Iw lwell [facility] Work Phone: Monocytes/100 WBC (Bld) 8.3 % 2.0 - 10.0 CF-Ssgoqoi-Te lwell [facility] Work Phone: Neutrophils/100 WBC (Bld) 58.8 % See Below YY-Eqpgftc-Oz lwell [facility] Work Phone: Comment on above: Reference Range: 40. 0 - 80.0 Platelets (Bld) [#/Vol] 216 10*3/uL 150 - 450 IE-Mgrjbml-Ds lwell [facility] Work Phone: RBC (Bld) [#/Vol] 3.78 {x10E12/L} below low threshold See Below RB-Ndzcvdc-Og lwell I [facility] Work Phone: Comment on above: Reference Range: 4.0 0 - 5.20 WBC (Bld) [#/Vol] 6.9 10*3/uL 4.4 - 11.3 MG-Amrit taye-Thomas lwell [address] Work Phone: Complete Blood Count + Differential 0.06 {x10E9/L} See Below RP-Jnzbzzw-Uo lwell I [facility] Work Phone: Comment on above: Reference Range: 0.0 0 - 0.10 Reference Range: 0.0 0 - 0.70 Complete Blood Count + Differential 0.57 {x10E9/L} See Below NR-Bnocymn-Vo lwell [address] Work Phone: Comment on above: Reference Range: 0.1 0 - 1.00 Complete Blood Count + Differential 2.11 {x10E9/L} See Below ED-Isqfzwl-Bk lwell [address] Work Phone: Comment on above: Reference Range: 1.2 0 - 4.80 Complete Blood Count + Differential 4.04 {x10E9/L} See Below RD-Kczghks-Xg lwell I [facility] Work Phone: Comment on above: Reference Range: 1.2 0 - 7.70 Complete Blood Count + Differential 0.9 % 0.0 - 6.0 SU-Anczaul-Hq lwell I [facility] Work Phone: Complete Blood Count + Differential 0.3 % 0.0 - 0.9 WT-Aljgwzq-Za lwell I [facility] Work Phone: Comment on above: Immature Granulocyte Count (IG) includes promyelocytes, myelocytes and metamyelocytes but does not include bands. Percent differential counts (%) should be interpreted in the context of the absolute cell counts (cells/L). Complete Blood Count + Differential 0.0 {/100_WBC} 0.0 - 0.0 BM-Wciqqwk-My lwell [facility] [address] [place] Work Phone: Daily Progress Note-Surgeryo n 12-25-2021 Daily Progress Note-Surgery Service: Surgery Subjective Data: MELINA DÍAZ is a 46 year old Female who is Hospital Day # 3 and POD #2 for Laparoscopic conversion of gastric sleeve to gelacio-en-y gastric bypass, hiatal hernia repair, TAP block, upper endoscopy. Additional Information: No acute events over night. No emesis since early yesterday. Nausea adequately controlled. Has been tolerating 2-4 oz of liquids per hour. Reports an expected degree of post operative pain. No other acute complaints. Objective Data: Objective Information: T PRBPMAPSpO2 [id number]% Date/Time12/25 7: 7: 7: 7: 7: 7:27 Range(36.4C - 37.6C ) (53 - 81 ) (16 - 20 ) (132 - 163 )/ (68 - 84 ) (97 - 114 ) (94% - 99% ) Highest temp of 37.6 C was recorded at 12/24 7:22 Pain reported at 12/24 22:45: 8 = Severe Physical Exam Narrative: Physical Exam: Physical Exam: Constitutional: Morbid Obesity, no distress, alert and cooperative Eyes: EOMI, clear sclera Head/Neck: Neck supple, no apparent injury, No JVD, trachea midline Respiratory/Thorax: good chest expansion, thorax symmetric Cardiovascular: Regular heart rate Abdominal: Incisions intact and clean, nondistended, soft, normal incisional tenderness, large pannus Musculoskeletal: ROM intact, no joint swelling Extremities: normal extremities, no cyanosis edema, contusions or wounds, no clubbing Neurological: alert and oriented x3, intact senses, Psychological: Appropriate mood and behavior Skin: Warm and dry, no lesions, no rashes Recent Lab Results: Results: CBC: 12/25/2021 07:05 \ Hgb / \ 10.7 L / WBC Plt 6.9 216 / Hct \ / 34.0 L \ RBC: 3.78 L MCV: 90 Neutrophil %: 58.8 CMP: 12/25/2021 07:05 NA+ Cl- BUN / 140 105 13 / ------ Glucose - 86 K+ HCO3- Creat \ 3.6 29 0.73 \ \ T Bili / \ 0.6 / AST x ---- x ALT 39 x ---- x 35 / Alk P \ / 55 \ Calcium : 8.8 Anion Gap : 10 Albumin : 3.7 T Protein : 5.7 L Assessment and Plan: Code Status: Code StatusFull Code Assessment: POD 2 after conversion of sleeve gastrectomy to RYGB. No leak or obstruction on esophagram yesterday. Emesis early yesterday, resolved. No major events over night. Patient is tolerating full liquids with adequate control of nausea. No significant issues. To be discharged later today vs tomorrow when tolerating adequate volume of PO liquids. Impression 1: POD 2 after conversion of gastric sleeve to RYGB Plan for Impression 1: - Follow oral intake today. Max 8 oz per hour (minimum of 4-5 oz per hour to qualify for discharge) - Pain control as needed - Anti-emetic therapy with Zofran - Decrease IV fluid support with adequate oral intake - Encourage IS/Ambulation - Discharge planning for today vs tomorrow Attestation: Note Completion: I am a: Resident/Fellow Attending AttestationI saw and evaluated the patient. I personally obtained the frost and critical portions of the history and physical exam or was physically present for frost and critical portions performed by the resident/fellow. I reviewed the resident/fellows documentation and discussed the patient with the resident/fellow. I agree with the resident/fellows medical decision making as documented in the note. I personally evaluated the patient [id number] Electronic Signatures: Brittany Bose) (Signed 25-Dec-2021 22:23) Authored: Note Completion Co-Signer: Service, Subjective Data, Objective Data, Assessment and Plan, Note Completion Leslie Tony (Fellow)) (Signed 25-Dec-2021 08:57) Authored: Service, Subjective Data, Objective Data, Assessment and Plan, Note Completion Last Updated: 25-Dec-2021 22:23 by Brittany Bose) [facility] - Chemistry and C hemistry - challengeon 12-25-2021 Albumin BCP dye [Mass/Vol] 3.7 g/dL 3.4 - 5.0 CL-Tlvpgkj-Kk lwell I [facility] Work Phone: ALP [Catalytic activity/Vol] 55 U/L 33 - 110 ZZ-Cxpgbsi-Ak lwell I [facility] Work Phone: ALT With P-5'-P [Catalytic activity/Vol] 35 U/L 7 - 45 WC-Bjafsnz-Cl lwell I [facility] Work Phone: Comment on above: Patients treated wit h Sulfasalazine may generate falsely decreased results for ALT. Anion gap [Moles/Vol] 10 mmol/L 10 - 20 MG- Surgery-Thomas lwell I [facility] Work Phone: AST With P-5'-P [Catalytic activity/Vol] 39 U/L 9 - 39 NC-Moayagn-Pq lwell I [facility] Work Phone: Bilirubin [Mass/Vol] 0.6 mg/dL 0.0 - 1.2 MG-S urgery-Thomas lwell [address] Work Phone: Calcium [Mass/Vol] 8.8 mg/dL 8.6 - 10.3 MG-Amrit taye-Thomas lwell [address] Work Phone: Chloride [Moles/Vol] 105 mmol/L 98 - 107 MG-S urgery-Thomas lwell [address] Work Phone: CO2 [Moles/Vol] 29 mmol/L 21 - 32 MG-Surger y-Thomas lwell [address] Work Phone: Creatinine [Mass/Vol] 0.73 mg/dL See Below MG- Surgery-Thomas lwell I [facility] Work Phone: Comment on above: Reference Range: 0.5 0 - 1.05 Glucose [Mass/Vol] 86 mg/dL 74 - 99 MG-Amrit taye-Thomas lwell I [facility] Work Phone: Potassium [Moles/Vol] 3.6 mmol/L 3.5 - 5.3 MG- Surgery-Thomas lwell I [facility] Work Phone: Protein [Mass/Vol] 5.7 g/dL below low threshold 6.4 - 8.2 PA-Pwftgno-Qo lwell I [facility] Work Phone: Sodium [Moles/Vol] 140 mmol/L 136 - 145 MG-Amrit taye-Thomas lwell [address] Work Phone: Urea nitrogen [Mass/Vol] 13 mg/dL 6 - 23 XQ-Jomtrci-Bw lwell [address] Work Phone: No Panel Informationon 12-25 >90 >90 TE-Thpdift-Vd lwell I [facility] Work Phone: Comment on above: CALCULATIONS OF RANDY MATED GFR ARE PERFORMED USING THE 2020 CKD-EPI STUDY REFIT EQUATION WITHOUT THE RACE VARIABLE FOR THE IDMS-TRACEABLE CREATININE METHODS.https://jasn.asnjournals.org/content// N.7356390233 Admission Risk Screen - Adul ton 12-24-2021 Admission Risk Screen - Adult Allergies: Allergies: Tramadol Hydrochloride: Facial Swelling Toradol: Unknown Tape - Adhesive, Bandaids, Paper: Other Aspartame: Other Patient Verification: New W ID Band Applied in my Departmentno Type of ID Patient is WearingW wristband, but not applied here Patient Transferred from Other Facility ([facility], [facility],etc)no Patient Identity Verified Bypatient ID Band FULL Name, include Middle, spelling matches patient's ID used for verificationyes ID Band Matches Patient ID used for Verficationyes ID Band MRN Matches EMR MRNyes Visitor Restriction: Coronavirus Visitor Restriction: Reasonable restrictions to in-person visitors will be observed due to current coronavirus pandemic. Travel History: COVID-19 Screening Completedno exposure or symptoms Travel or Exposure Past 30 DaysNO travel to International locations in the past 30 days Ebola AlertFor Ebola-like Symptoms: Isolate Patient and Notify Provider/Completion Engineer For Contact: Notify Provider/Completion Engineer Advance Directive: Advance Directive/DNRno Advance Directive Information Givenpatient/family declined Suarez Fall Screen: History of falling (immediate or previous)no (0) Secondary Diagnosisyes (15) Intravenous Therapy/ Heparin/Saline Lockyes (20) Gait/Transferringnormal/be drest/wheelchair (0) Ambulatory Aidsnone/bedrest/nurse assist (0) Mental Statusoriented to own ability (0) Score: Low risk (<25). Moderate risk (25-44). High risk (>44).35 Suarez InterventionsMODERATE INTERVENTIONS: *Low Interventions Plus: * falls risk band/sticker applied to patient, *yellow non-skid footwear, *instruct to call for assistance before getting out of bed, *bed/chair/bedside commode/toilet alarms, *sensory devices/ambulatory aides available and in reach, *medications reviewed for potential side effects and care planning. Family Violence Screen: Are you or have you been threatened or abused physically, emotionally, or sexually by anyoneno Do you feel UNSAFE going back to the place where you are livingno Clinical assessment: Are there any apparent signs of injuries/behaviors that could be related to abuse/neglectno Social Service Consult for abuse/neglect needed this visitno Functional Screen: Functional Screen: In the recent/past 2-4 weeks, patient or family have noticedno issues that require a speech/language consult at this time AM-PAC- Basic Mobility/Daily Activity: Patient baseline bedboundno Learning Assessment (Patient): Patient is Able to be Assessed for Learningyes Factors Influencing Readiness to Learninterest in learning Factors that Impact Ability to Learnnone Devices/Methods Used to Communicatecommunication board Learning Preferencesverbal instruction Cultural Considerationsnone Developmental Considerationsnone Anabaptist Considerationsnone Learning Assessment (Other Learner): Other learner availableno Depression Screen: During the past month, have you often been bothered by feeling down, depressed or hopelessno During the past month, have you often had little interest or pleasure in doing thingsno Have you had any thoughts of harming anyone elseno [place] Suicide: Risk Screen Not Applicable/Able to Answerable to be screened In the Past Month: Have you wished you were or could go to sleep and not wake upno(1) In the Past Month: Have you had any actual thoughts of killing yourself no(1) Lifetime: Have you ever done, started to do, or prepared to do anything to end your lifeno(1) [place] Suicide Risknegative Adult Nutrition Screen: Have you recently lost weight without tryingno Have you been eating poorly because of a decreased appetiteno Malnutrition Screening Tool Score0 Malnutrition Screening Tool RiskMST = 0 or 1 Not at risk. Eating well with little or no weight loss Nutrition Consult needed this visitno Can Patient Participate in Room Serviceno Patient requires Paper Dishes/Plastic Utensilsno Pain Screen: Pain Scalenumerical 0-10 Pain Scale Educationteaching provided Current Pain Level6 = Moderate Acceptable Pain Level4 = Moderate Expression of Pain (nonverbal)grimace Chronic Painno Spiritual Screen: Are there any cultural, spiritual, sabianist practices/values/needs that are important for us to knowno Do you want a visit/item from Pastoral Careyes Is there any particular item/ help you need from Pastoral Careprayer / pastoral support CAGE: Is this an injured patient at a Trauma Center ([facility]/[place]/Khoa Ronquillo/Sab[place]): no Vaccinations: Vaccination - Influenza Vaccination Screen: Is it flu season (between and December 12)Yes Screening for identified contraindications to influenza vaccinationpatient already received vaccine this season Vaccination - Pneumonia Vaccination Screen: Patient has received a previous pneumonia vaccine:no/unknown... Immu (more content not included)... Normal [facility] CBC AND DIFFERENTIALon 12-24 % AUTOMATED IMMATURE GRAN 0.5 % Normal 0.0 - 0.9 [facility] Comment on above: Result Comment: Yanni ture Granulocyte Count (IG) includes promyelocytes, myelocytes and metamyelocytes but does not include bands. Percent differential counts (%) should be interpreted in the context of the absolute cell counts (cells/L). Performed By: #### C BCDF ####[facility] [place] [address] Basophils (Bld) [#/Vol] 0.01 10*3/uL Normal 0.00 - 0.10 [facility] Comment on above: Performed By: #### C BCDF ####[address] [address] Eosinophils (Bld) [#/Vol] 0.00 10*3/uL Normal 0.00 - 0.70 [facility] Comment on above: Performed By: #### C BCDF ####[address] [address] Eosinophils/100 WBC (Bld) 0.0 % Normal 0.0 - 6.0 [facility] Comment on above: Performed By: #### C BCDF ####[address] [address] Lymphocytes (Bld) [#/Vol] 0.67 10*3/uL Low 1.20 - 4.80 [facility] Comment on above: Performed By: #### C BCDF ####[address] [address] Monocytes (Bld) [#/Vol] 0.26 10*3/uL Normal 0.10 - 1.00 [facility] Comment on above: Performed By: #### C BCDF ####[address] [address] Neutrophils (Bld) [#/Vol] 7.11 10*3/uL Normal 1.20 - 7.70 [facility] Comment on above: Performed By: #### C BCDF ####[address] [address] NUCLEATED RBC 0.0 /100 WBC Normal 0.0 - 0.0 [facility] Comment on above: Performed By: #### C BCDF ####[address] [address] RBC 4.04 x10E12/L Normal 4.00 - 5.20 [facility] Comment on above: Performed By: #### C BCDF ####[address] [address] COMPREHENSIVE PANELon 2021 Albumin [Mass/Vol] 3.7 g/dL Normal 3.4 - 5.0 [facility] Comment on above: Performed By: #### C MP #### [facility] [address] [place] [address] ALP [Catalytic activity/Vol] 59 U/L Normal 33 - 110 [facility] Comment on above: Performed By: #### C MP #### [facility] [address] [place] [address], [place] [address] ALT [Catalytic activity/Vol] 27 U/L Normal 7 - 45 [facility] Comment on above: Result Comment: Donita ents treated with Sulfasalazine may generate falsely decreased results for ALT. Performed By: #### C MP #### [address] [place] [address] Anion gap [Moles/Vol] 12 mmol/L Normal 10 - 20 [facility] Comment on above: Performed By: #### C MP #### [address] [place] [address] AST [Catalytic activity/Vol] 33 U/L Normal 9 - 39 [facility] Comment on above: Performed By: #### C MP #### [facility] [address] [place] [address], [place] [address] Bilirubin [Mass/Vol] 0.6 mg/dL Normal 0.0 - 1.2 [facility] Comment on above: Performed By: #### C MP #### [address] [place] [address] Calcium [Mass/Vol] 8.5 mg/dL Low 8.6 - 10.3 [facility] Comment on above: Performed By: #### C MP #### [address] [place] [address] Chloride [Moles/Vol] 105 mmol/L Normal 98 - 107 [facility] Comment on above: Performed By: #### C MP #### [address] [place] [address] Creatinine [Mass/Vol] 0.64 mg/dL Normal 0.50 - 1.05 [facility] Comment on above: Performed By: #### C MP #### [address] [place] [address] eGFR FEMALE >90 Normal >90 [facility] Comment on above: Result Comment: CALC ULATIONS OF ESTIMATED GFR ARE PERFORMED USING THE 2020 CKD-EPI STUDY REFIT EQUATION WITHOUT THE RACE VARIABLE FOR THE IDMS-TRACEABLE CREATININE METHODS. https://jasn.asnjournals.org/content/early/ASN.916181 9913 Performed By: #### C MP #### [address] [place] [address] Glucose [Mass/Vol] 153 mg/dL High 74 - 99 [facility] Comment on above: Performed By: #### C MP #### [address] [place] [address] HCO3 (Bld) [Moles/Vol] 24 mmol/L Normal 21 - 32 [facility] Comment on above: Performed By: #### C MP #### [address] [place] [address] Potassium [Moles/Vol] 4.4 mmol/L Normal 3.5 - 5.3 [facility] Comment on above: Performed By: #### C MP #### [address] [place] [address] Protein [Mass/Vol] 5.9 g/dL Low 6.4 - 8.2 [facility] Comment on above: Performed By: #### C MP #### [address] [place] [address] Sodium [Moles/Vol] 137 mmol/L Normal 136 - 145 [facility] Comment on above: Performed By: #### C MP #### [address] [place] [address] Urea nitrogen [Mass/Vol] 13 mg/dL Normal 6 - 23 [facility] Comment on above: Performed By: #### C MP #### [address] [place] [address] Complete Blood Count + Diffe rentialon 12-24-2021 Basophils/100 WBC (Bld) 0.1 % Normal 0.0 - 2.0 JK-Vhaujbv-Hv lwell [address] [place] Work Phone: Comment on above: Performed By: #### C BCDF ####[address] [address] Erythrocyte distribution width (RBC) [Ratio] 13.9 % Normal 11.5 - 14.5 SU-Lhfhety-Do lwell [facility] Work Phone: Comment on above: Reference Range: 11. 5 - 14.5 Performed By: #### C BCDF ####[address] [address] Hematocrit (Bld) [Volume fraction] 34.7 % Low 36.0 - 46.0 ZK-Piqvyjf-Ob lwell [facility] Work Phone: Comment on above: Reference Range: 36. 0 - 46.0 Performed By: #### C BCDF ####[address] [address] Hemoglobin (Bld) [Mass/Vol] 11.4 g/dL Low 12.0 - 16.0 NQ-Zfxchzs-Eo lwell [facility] Work Phone: Comment on above: Reference Range: 12. 0 - 16.0 Performed By: #### C BCDF ####[address] [address] Lymphocytes/100 WBC (Bld) 8.3 % Normal 13.0 - 44.0 WZ-Kahmohk-Vd lwell I [facility] Work Phone: Comment on above: Reference Range: 13. 0 - 44.0 Performed By: #### C BCDF ####[address] [address] MCHC (RBC) [Mass/Vol] 32.9 g/dL Normal 32.0 - 36.0 NM-Ghvjjld-Th lwell [facility] Work Phone: Comment on above: Reference Range: 32. 0 - 36.0 Performed By: #### C BCDF ####[address] [address] MCV (RBC) [Entitic vol] 86 fL Normal 80 - 100 JQ-Ehmbqkw-Ob lwell [facility] Work Phone: Comment on above: Performed By: #### C BCDF ####[address] [address] Monocytes/100 WBC (Bld) 3.2 % Normal 2.0 - 10.0 FZ-Jtowods-Li lwell [facility] [address] [place] Work Phone: Comment on above: Performed By: #### C BCDF ####[address] [address] Neutrophils/100 WBC (Bld) 87.9 % Normal 40.0 - 80.0 VG-Alhweuu-Hn lwell I [facility] Work Phone: Comment on above: Reference Range: 40. 0 - 80.0 Performed By: #### C BCDF ####[address] [address] Platelets (Bld) [#/Vol] 228 10*3/uL Normal 150 - 450 IL-Xnfaage-Pt lwell [facility] Work Phone: Comment on above: Performed By: #### C BCDF ####[address] [address] RBC (Bld) [#/Vol] 4.04 {x10E12/L} See Below MG -Surgery-[place] [address] [place] Work Phone: Comment on above: Reference Range: 4.0 0 - 5.20 WBC (Bld) [#/Vol] 8.1 10*3/uL Normal 4.4 - 11.3 MG-Amrit taye-[place] [facility] [address] [place] Work Phone: Comment on above: Performed By: #### C BCDF ####[address] [address] Complete Blood Count + Differential 0.01 {x10E9/L} See Below TC-Kwrvarm-Sp lwell [facility] [address] [place] Work Phone: Comment on above: Reference Range: 0.0 0 - 0.10 Complete Blood Count + Differential 0.00 {x10E9/L} See Below YM-Vcpyrkv-Vi [address] Work Phone: Comment on above: Reference Range: 0.0 0 - 0.70 Complete Blood Count + Differential 0.26 {x10E9/L} See Below GO-Ewzrfll-Iu [address] Work Phone: Comment on above: Reference Range: 0.1 0 - 1.00 Complete Blood Count + Differential 0.67 {x10E9/L} below low threshold See Below DE-Xppekmj-Wv [address] Work Phone: Comment on above: Reference Range: 1.2 0 - 4.80 Complete Blood Count + Differential 7.11 {x10E9/L} See Below XU-Pahmmnb-Mq [address] Work Phone: Comment on above: Reference Range: 1.2 0 - 7.70 Complete Blood Count + Differential 0.0 % 0.0 - 6.0 HO-Kmmiwbs-Nw[address] Work Phone: Complete Blood Count + Differential 0.5 % 0.0 - 0.9 AP-Jynorbc-Tv[address] Work Phone: Comment on above: Immature Granulocyte Count (IG) includes promyelocytes, myelocytes and metamyelocytes but does not include bands. Percent differential counts (%) should be interpreted in the context of the absolute cell counts (cells/L). Complete Blood Count + Differential 0.0 {/100_WBC} 0.0 - 0.0 RS-Qpcnlgk-Ue[address] Work Phone: Daily Progress Note-Surgeryo n 12-24-2021 Daily Progress Note-Surgery Service: Surgery Subjective Data: MELINA DÍAZ is a 46 year old Female who is Hospital Day # 2 and POD #1 for Laparoscopic conversion of gastric sleeve to gelacio-en-y gastric bypass, hiatal hernia repair, TAP block, upper endoscopy. Additional Information: No acute events over night. One episode of emesis this morning. Previously tolerating 1-2 oz of liquids per hour. Was given phenergan and has restarted liquids since emesis without issue. Urinating normally. Reports an expected degree of post operative pain. No other acute complaints. Objective Data: Objective Information: T PRBPMAPSpO2 [id number]% Date/Time12/24 7: 7: 3: 7: 7: 7:22 Range(36.5C - 37.6C ) (53 - 81 ) (19 - 20 ) (132 - 164 )/ (72 - 93 ) (102 - 122 ) (94% - 99% ) As of 23-Dec-2021 23:00:00, patient is on 2 L/min of oxygen via nasal cannula. Highest temp of 37.6 C was recorded at 12/24 7:22 Pain reported at 12/24 5:12: 6 = Moderate ---- Intake and Output ----- Mn/Dy/Year TimeIntakeOutputNet Dec 24, 2021 6:00 [id number] The Intake and Output Totals for the last 24 hours are: IntakeOutputNet [id number] Physical Exam Narrative: Physical Exam: Physical Exam: Constitutional: Morbid Obesity, no distress, alert and cooperative Eyes: EOMI, clear sclera Head/Neck: Neck supple, no apparent injury, No JVD, trachea midline Respiratory/Thorax: good chest expansion, thorax symmetric Cardiovascular: Regular heart rate Abdominal: Incisions intact and clean, nondistended, soft, normal incisional tenderness, large pannus Musculoskeletal: ROM intact, no joint swelling Extremities: normal extremities, no cyanosis edema, contusions or wounds, no clubbing Neurological: alert and oriented x3, intact senses, Psychological: Appropriate mood and behavior Skin: Warm and dry, no lesions, no rashes Assessment and Plan: Additional Dx: Morbid obesity: Entered Date: 22-Dec-2021 21:21 Comorbidities: Comorbidityobesity Obesitymorbid obesity (BMI 40+) Code Status: Code StatusFull Code Assessment: POD 1 after conversion of sleeve gastrectomy to RYGB. No major events over night. Patient is tolerating clear liquids with some nausea, greatly improved with phenergan (had chronic nausea issue pre op). To go for upper GI study this morning. Diet to be advanced if no leak or obstruction on study. Impression 1: POD 1 after sleeve to bypass conversion Plan for Impression 1: - Upper GI contrast study today to assess for leak or obstruction - Advance diet to include full liquids if esophagram does not show leak or obstruction - Zofran every 6 hours for nausea - Protonix 40mg IV daily - Tylenol and oxycodone for pain. Dilaudid as needed for breakthrough pain - IV fluid support with lactated ringers - Encourage IS/Ambulation - Begin discharge planning Impression 2: Acute on chronic nausea Plan for Impression 2: - Follow up upper GI - Continue phenergan - Continue IV fluid support Attestation: Note Completion: I am a: Resident/Fellow Attending AttestationI reviewed the resident/fellows documentation and discussed the patient with the resident/fellow. I agree with the resident/fellows medical decision making as documented in the note. Electronic Signatures: Brittany Bose) (Signed 24-Dec-2021 10:03) Authored: Note Completion Co-Signer: Service, Subjective Data, Objective Data, Assessment and Plan, Note Completion Leslie Tony (Fellow)) (Signed 24-Dec-2021 07:52) Authored: Service, Subjective Data, Objective Data, Assessment and Plan, Note Completion Last Updated: 24-Dec-2021 10:03 by Brittany Bose) [facility] Discharge Planning Gorr1be 0 12-24-2021 Discharge Planning Note2 Discharge Planning: Planned Dispositionhome Discharge DestinationHome Anticipated Discharge [id number] Discharge Planning 12/24/2021 1100 Transitional Quality Control Lab Tech Note: Met with pt in room, introduced self and explained role. Verified insurance, address, phone, and emergency contact. Pt is from home, lives with and 5 children and 3 dogs. Children help at home ages 13-19. Stated she is independent, no use of assistive devices. Wears CPAP. Stated she simin have help at home if needed. Still drives. Stated all her MD appointments are virtual. Does not feel she will have any needs upon discharge. Support provided. Kate Wolfe RN TCC 12/26/21 1442 TRANSITIONAL BUILDING ENGINEER Patient now with productive cough. cxr ordered. Plan remains for home with no needs. Magaly Hammond RN, TCC Assessment: Discharge Planning Assessment [id number] Discharge Planning Assessment Completed bykhoa Wolfe RN TCC Primary Contact Name and NumberKenyon Dooley [phone] Prior Level of Functioningindependent Lives Withdependent child(jackelin); spouse Living Arrangementshouse(1) Stated Reason for AdmissionGastric Bypass Surgery (1) [place] mona Gabriel Preferred Pharmacy Name/Location[facility] in [place] Resource/Environmental Concernsnone(1) [place]tic[place](1) Services Anticipated at Transitionnon(1) InsuranceAnthem Anticipated Changes Related to Illnessnone Equipment Needed After Dischargenone Anticipated Discharge Facility/Level of Care NeedsHome Transportation Home Who/Howfamily Medication Adherence/Afford/Obtainyes Home O2/BiPAP/CPAPCPAP Nursing Checklist: Lines/Cathetersremoved/davida ropriate for next level of care Discharge Med Rec Reconciled with Jonatan Patient has Prescriptionsyes Transportation for Discharge Confirmedyes Discharge Instructions Reviewed WithPatient Discharge Instructions Outcomeverbalize recall/understanding Discharge Documentation: Discharge/Transfer Date/[id number] 15:10 Discharged Accompanied Byfamily member Discharge Modewheelchair Transportation Methodprivate car Code StatusCode Status order at time of discharge: Full Code [place] DNR Form Sent with Patient and/or Familyn/a Valuables/Medications/Belo ngings Returnedyes Final DispositionHome Electronic Signatures: Betty Johnson (RN) (Signed 27-Dec-2021 15:19) Authored: Discharge Planning, Nursing Checklist, Discharge Documentation Amelia Hammond (OPERATIONS CLERK) (Signed 26-Dec-2021 14:43) Authored: Discharge Planning Kate Wolfe (OPERATIONS CLERK) (Signed 24-Dec-2021 12:04) Authored: Discharge Planning, Assessment Last Updated: 27-Dec-2021 15:19 by Betty Johnson (RN) References: 1. Data Referenced From Patient Profile - Adult v2 23-Dec-2021 23:21 Normal [facility] GI TRACT, UPPER W/O KUBon GI TRACT, UPPER W/O KUB Patient Name: MELINA DÍAZ STUDY: GI TRACT, UPPER W/O KUB; ; 12/24/2021 10:01 am INDICATION: Post-Bariatric Surgery . COMPARISON: None. ACCESSION NUMBER(S): [id number] ORDERING CLINICIAN: LESLIE TONY TECHNIQUE: Patient was administered approximately 30 mL Gastrografin and this was visualized under fluoroscopy with spot fluoroscopic imaging obtained. Fluoroscopy time: 3.3 minutes. FINDINGS: Evidence of gastric bypass surgery. No definite contrast leakage identified. No definite obstruction through the area of operative change. There are distended gas-filled bowel loops throughout with some air-fluid levels. Surgical clips right upper quadrant and centrally within the abdomen. There is some apparent subcutaneous/soft tissue gas along the left lateral upper abdominal wall. IMPRESSION: Status post gastric bypass surgery. No definite contrast leak identified. Distended gas-filled bowel loops throughout with some scattered air-fluid levels could be due to ileus or obstruction. Clinical correlation and follow-up advised. There is some apparent subcutaneous/soft tissue gas along the left lateral upper abdominal wall may be related to sequela of recent surgery. Clinical correlation and follow-up advised. Electronically signed by: DO Gabe HANEY [facility] Laboratory - Chemistry and C hemistry - challengeon 12-24-2021 Albumin BCP dye [Mass/Vol] 3.7 g/dL 3.4 - 5.0 UQ-Goewtwj-Vb[address] Work Phone: ALP [Catalytic activity/Vol] 59 U/L 33 - 110 UD-Xeqsppz-Ob[address] Work Phone: ALT With P-5'-P [Catalytic activity/Vol] 27 U/L 7 - 45 IJ-Tahnhrc-Cr[address] Work Phone: Comment on above: Patients treated wit h Sulfasalazine may generate falsely decreased results for ALT. Anion gap [Moles/Vol] 12 mmol/L 10 - 20 MG- Surgery-[address] Work Phone: AST With P-5'-P [Catalytic activity/Vol] 33 U/L 9 - 39 YS-Vejguex-Lb[address] Work Phone: Bilirubin [Mass/Vol] 0.6 mg/dL 0.0 - 1.2 MG-S urgery-[place] [address] Work Phone: [phone] Calcium [Mass/Vol] 8.5 mg/dL below low threshold 8.6 - 10.3 LH-Fiwxiui-Vd lwell [address] Work Phone: [phone] Chloride [Moles/Vol] 105 mmol/L 98 - 107 MG-S urgery-[place] [address] Work Phone: [phone] CO2 [Moles/Vol] 24 mmol/L 21 - 32 MG-Surger y-[place] [address] Work Phone: [phone] Creatinine [Mass/Vol] 0.64 mg/dL See Below MG- Surgery-[place] [address] Work Phone: [phone] Comment on above: Reference Range: 0.5 0 - 1.05 Glucose [Mass/Vol] 153 mg/dL above high threshold 74 - 99 KL-Zpdohth-Mq lwell [address] Work Phone: [phone] Potassium [Moles/Vol] 4.4 mmol/L 3.5 - 5.3 MG- Surgery-[place] [address] Work Phone: [phone] Protein [Mass/Vol] 5.9 g/dL below low threshold 6.4 - 8.2 ZV-Ufduvnv-Fi lwell [address] Work Phone: [phone] Sodium [Moles/Vol] 137 mmol/L 136 - 145 MG-Amrit taye-[place] [address] Work Phone: [phone] Urea nitrogen [Mass/Vol] 13 mg/dL 6 - 23 TT-Ncpwoag-Dl lwell [address] Work Phone: [phone] NICOTINE+METABOLITES,Son 0-RZ-[id number] <2 Normal [facility] Comment on above: Performed By: #### N I+ME ####[facility] [address] [place] [address] COTININE <2 Normal [facility] Comment on above: Performed By: #### N I+ME ####[facility] [address] [place] [address] NICOTINE <2 Normal [facility] Comment on above: Result Comment: Cons istent with abstinence from nicotine-containing products for at least 1 week. INTERPRETIVE INFORMATION: Nicotine and Metabolites, Serum or Plasma, Quantitative Methodology: Quantitative Liquid Chromatography-Tandem Mass Spectrometry Positive cutoff: 2 ng/mL For medical purposes only; not valid for forensic use. This test is designed to evaluate recent use of nicotine-containing products. Passive and active exposure cannot be discriminated definitively, although a cutoff of 10 ng/mL cotinine is frequently used for surgery qualification purposes. For smoking cessation programs or compliance testing, the absence of expected drug(s) and/or drug metabolite(s) may indicate non-compliance, inappropriate timing of specimen collection relative to drug administration, poor drug absorption, or limitations of testing. This test cannot distinguish between use of tobacco and purified nicotine products. The concentration value must be greater than or equal to the cutoff to be reported as positive. This test was developed and its performance characteristics determined by [facility]. It has not been cleared or approved by the [place] Food and Drug Administration. This test was performed in a CLIA certified laboratory and is intended for clinical purposes. Performed By: [facility] [address] [place] [address] Physician Office Specialist: Regina Oneill MD Performed By: #### N I+ME ####[facility] [place] [address] No Panel Informationon 12-24 Normal KB-Pbvrfjs-Rl lwell [address] Work Phone: >90 >90 LC-Frdlvtj-Ug lwell I [facility] Work Phone: Comment on above: CALCULATIONS OF RANDY MATED GFR ARE PERFORMED USING THE 2020 CKD-EPI STUDY REFIT EQUATION WITHOUT THE RACE VARIABLE FOR THE IDMS-TRACEABLE CREATININE METHODS.https://jasn.asnjournals.org/content/early/ N.9070098165 Patient Profile - Adult v2on 12-24-2021 Patient Profile - Adult v2 Profile: Initial Info: How to be Addressedjen(1) Spoken Language PreferredEnglish (1) Source of Informationpatient Stated Reason for AdmissionGastric Bypass Surgery Wants Family/Rep Notified of Admissionno Notify PCPnotify PCP [facility] [place] Patient Belongingsremains with patient; patient educated regarding responsibility for personal items Medications Brought to Hospitalyes Medication Dispositionbedside History of MDROno General Health: Blood Avoidance/Restrictionsnone (1) Previous Transfusion Reactionnot applicable(1) Weight in kg119.1 kilogram(s) Weight in rbx922.5 pound(s) Weight Methodactual (measured) Scale Typebed Height in cm172.4 centimeter(s) Height in feet5 feet Height in inches7.91 inch(es) Height Methodstated BMI (kg/m2)40.071 square meter RSP Based Care: How would you like to participate in your care. What is the number one concern for you during this hospitalization. What is the most important thing we can do to support you during this hospitalization. Is there anything we need to know to best care for you. Substance: Smoking Statusnever smoker Health Mgmt: Symptoms/Conditions Managed at Homeendocrine Are You no (2) Are You Currently Breastfeedingno (2) Endocrine Managementmanaged Relationship/Environ: Resource/Environmental Concernsnone Primary Source of Support/Comfortchild(jackelin); spouse Lives Withdependent child(jackelin) Living Arrangementshouse Services Anticipated at Transitionnone [place] Significant IndicatorsComplete Information Review: Allergies, Home Meds and Significant Events have been Reviewed and Verified with Patient/Familyyes ALLERGY, INTOLERANCE, ADVERSE EVENT: Allergies: Tramadol Hydrochloride: Drug, Facial Swelling, Active Toradol: Drug, Unknown, Active Tape - Adhesive, Bandaids, Paper: Environment, Other, Active Aspartame: Food, Other, Active Electronic Signatures: Marisol Vera (PIETRO) (Signed 23-Dec-2021 23:31) Authored: Initial Info, General Health, [facility] Based Care, Substance, Health Mgmt, Relationship/Environ, Additional Information Last Updated: 23-Dec-2021 23:31 by Marisol Vera (PIETRO) References: 1. Data Referenced From Patient Profile - Preop v3 20-Dec-2021 12:52 2. Data Referenced From History and Physical - Surgical Update < 30 days 22-Dec-2021 21:03 Normal [facility] Order Reconciliationon 12-23 Order Reconciliation Page 1 Admission Reconciliation Document Reconciliation Type: Admission from OR requested on behalf of Leslie Tony (Fellow) done by Leslie Tony ( (Fellow)) Admission from OR - Reconciliation: 23-Dec-2021 20:32 by: Leslie Tony ( (Fellow)) Home MedicationsEnteredLast Dose TakenReconciled with current Order Reconciliation Comment/ Additional Information ALPRAZolam 0.5 mg oral tablet 1 tab(s) orally once a day, As [id number]-Dec-2021 AM ALPRAZolam Tablet (XANAX)DOSE = 0.5 mg Oral At Bedtime, PRN AnxietyALPRAZolam 0.5 mg oral tablet continued as the inpatient order ALPRAZolam B-12 1000 mcg oral tablet 1000 microgram(s) injectable once a week-Thursday-Apr-2022 Reviewed and Held Benadryl 25 mg oral tablet 1 tab(s) orally once a day (at bedtime)23-Dec-2021 UNKNOWN UNKNOWN diphenhydrAMINE Injectable (BENADRYL)DOSE = 25 mg IntraVenous Push Every 8 Hours, PRN ItchingClinician Notes: Also OK to use at night for insomniaBenadryl 25 mg oral tablet continued as the inpatient order diphenhydrAMINE Injectable oxyCODONE 5 mg oral capsule 1 cap(s) orally every 6 hours, As Needed [id number] UNKNOWN oxyCODONE Oral Liquid (ROXICODONE)DOSE = 5 mg Oral Every 6 Hours, PRN Pain - Mod (4-6)oxyCODONE 5 mg oral capsule reconciled with the existing inpatient order oxyCODONE Oral Liquid Pepcid 20 mg oral tablet 1 tab(s) orally 2 times a day [id number] AM Pantoprazole Injectable (PROTONIX)DOSE = 40 mg IntraVenous Push Every 24 HoursPepcid 20 mg oral tablet reconciled with the existing inpatient order Pantoprazole Injectable promethazine 25 mg oral tablet 1 tab(s) orally every 6 hours, As Needed [id number] PM Promethazine IV Piggy Back in Sodium Chloride 0.9% 50 mL (PHENERGAN)DOSE = 25 mg Every 6 Hours, PRN NauseaRecommended Infusion Time: 15 minute(s)promethazine 25 mg oral tablet reconciled with the existing inpatient order Promethazine IV Piggy Back sucralfate 1 g/10 mL oral suspension 10 milliliter(s) orally 4 times a day - 4 Times a Day Before Meals PM Reviewed and Held Synthroid 50 mcg (0.05 mg) oral tablet 1 tab(s) orally once a [id number]-Dec-2021 Levothyroxine TabletDOSE = 50 microgram(s) Oral DailySynthroid 50 mcg (0.05 mg) oral tablet continued as the inpatient order Levothyroxine Additional Current Orders Acetaminophen Oral Liquid (TYLENOL)DOSE = 650 mg Oral Every 4 Hours, PRN Pain - Mild (1-3) Albuterol 2.5 mg/ 3 mL Nebulizer Soln (PROVENTIL)DOSE = 3 mL Inhalation Every 2 Hours via Nebulizer, PRN Wheezing Albuterol 2.5 mg/ 3 mL Nebulizer Soln (PROVENTIL)DOSE = 3 mL Inhalation Once via Nebulizer, PRN Wheezing (PACU)Clinician Notes: Anita-operative order ONLY Heparin SubCutaneous DOSE = 5,000 unit(s) SubCutaneous Every 8 HoursClinician Notes: Start 8 hours after preop dose given Heparin SubCutaneous DOSE = 5,000 unit(s) SubCutaneous OnceClinician Notes: To be given in pre op holdingNotes from Pharmacy: Note Concentration Prior to Administration hydrALAZINE (APRESOLINE) Injectable DOSE = 5 mg IntraVenous Push Every 4 Hours, PRN SBP >160 HYDROmorphone Injectable (DILAUDID)DOSE = 0.25 mg IntraVenous Push Every 5 Minutes, PRN Pain - Mod (4-6) (PACU)Clinician Notes: Anita-operative order ONLYMax total of 4 mg regardless of dose. HYDROmorphone Injectable (DILAUDID)DOSE = 0.5 mg IntraVenous Push Every 2 Hours, PRN Breakthrough pain HYDROmorphone Injectable (DILAUDID)DOSE = 0.5 mg IntraVenous Push Every 5 Minutes, PRN Pain - Severe (7-10) (PACU)Clinician Notes: Anita-operative order ONLYMax total of 4 mg regardless of dose. Ipratropium 500 microgram/ 2.5 mL Neb Soln (ATROVENT)DOSE = 2.5 mL Inhalation Once via NebulizerClinician Notes: Anita-operative order ONLY Lactated Ringers Infusion IV Bag Volume = 1,000 mL Run at: 100 mL/hr IntraVenous Clinician Notes: Anita-operative order ONLY Lactated Ringers Infusion IV Bag Volume = 1,000 mL Run at: 100 mL/hr IntraVenous Clinician Notes: Anita-operative order ONLY Lactated Ringers Infusion IV Bag Volume = 1,000 mL Run at: 150 mL/hr IntraVenous Meperidine Injectable (DEMEROL)DOSE = 12.5 mg IntraVenous Push Every 10 Minutes, PRN Shivering (PACU)Clinician Notes: Anita-operative order ONLYMay repeat x3 PRN metroNIDAZOLE (FLAGYL) 500 mg IVPB/ Premixed Soln 100 mL Every 8 HoursRecommended Infusion Time: 60 minute(s)Stop After 2 DosesClinician Notes: Start 8 hours after preop dose given metroNIDAZOLE (FLAGYL) 500 mg IVPB/ Premixed Soln 100 mL OnceRecommended Infusion Time: 30 minute(s)Clinician Notes: To be given 1 hour preoperatively when patient is placed on-call to the OR. Midazolam Injectable Preservative Free (VERSED)DOSE = 2 mg IntraVenous Push OnceClinician Notes: May repeat x1 Pre-op only Ondansetron Injectable (ZOFRAN)DOSE = 4 mg IntraVenous Push Every 6 Hours Ondansetron Injectable (ZOF (more content not included)... Normal [facility] CORONAVIRUS 2019, SCREEN ASY MPTOMATICon 12-20-2021 SARS-CoV-2 (COVID-19) RNA MEAGAN+probe Ql (Unsp spec) Not detected Normal Not Detected [facility] Comment on above: Result Comment: . This assay is designed to detect the N, ORF1ab and/or S genes of SARS-CoV-2 via nucleic acid amplification. A Negative (NOT DETECTED) result does not preclude 2019-nCoV infection since the adequacy of sample collection and/or low viral burden may result in presence of viral nucleic acids below the clinical sensitivity of this test method. Negative (NOT DETECTED) result should not be used as the sole basis for treatment or other patient management decisions. Rather negative results should be combined with clinical observations, patient history, and epidemiological information to make patient management decisions. Fact sheet for providers: https://www.fda.gov/media/475327/download Fact sheet for patients: https://www.fda.gov/media/931270/download This test has received FDA Emergency Use Authorization (EUA) and has been verified by [facility] ([facility]). This test is only authorized for the duration of time that circumstances exist to justify the authorization of the emergency use of in vitro diagnostic tests for the detection of SARS-CoV-2 virus and/or diagnosis of COVID-19 infection under section 564(b)(1) of the Act, 21 U.S.C. 360bbb-3(b)(1), unless the authorization is terminated or revoked sooner. [facility] is certified under CLIA-88 as qualified to perform high complexity testing. Testing is performed in the [facility] laboratories located at [address] [place] [address]. Performed By: #### R ENAL #### [place] [address] Lab Specimen Source Nasal, Nasopharyngeal Normal [facility] Comment on above: Performed By: #### R ENAL #### [place] [address] Coronavirus 2019 RNA by PCR, Screening Asymptomticon 12-20-2021 Coronavirus 2019 RNA by PCR, Screening Asymptomtic Not detected Normal See Below VZ-Xwsjiag-Hp patell [facility] [address] [place] Work Phone: Comment on above: SOURCE: Nasal, Nasop haryngealReference Range: Not Detected.This assay is designed to detect the N, ORF1ab and/or S genes of SARS-CoV-2 via nucleic acid amplification. A Negative (NOT DETECTED) result does not preclude 2019-nCoV infection since the adequacy of sample collection and/or low viral burden may result in presence of viral nucleic acids below the clinical sensitivity of this test method. Negative (NOT DETECTED) result should not be used as the sole basis for treatment or other patient management decisions. Rather negative results should be combined with clinical observations, patient history, and epidemiological information to make patient management decisions.Fact sheet for providers: https://www.fda.gov/media/003196/downloadFact sheet for patients: https://www.fda.gov/media/595676/downloadThis test has received FDA Emergency Use Authorization (EUA) and has been verified by [facility] ([facility]). This test is only authorized for the duration of time that circumstances exist to justify the authorization of the emergency use of in vitro diagnostic tests for the detection of SARS-CoV-2 virus and/or diagnosis of COVID-19 infection under section 564(b)(1) of the Act, 21 U.S.C. 360bbb-3(b)(1), unless the authorization is terminated or revoked sooner. [facility] is certified under CLIA-88 as qualified to perform high complexity testing. Testing is performed in the [facility] laboratories located at [address] [place] [address]. Covid 19 Resultson 2 SARS-CoV-2 (COVID-19) RNA MEAGAN+probe Ql (Unsp spec) NEGATIVE COVID-19 Test Coronaviruses are common world-wide and are the cause of many common colds. SARS-COV2 is a new coronavirus that began circulating worldwide in 2019 so we are calling it COVID-19. It has been estimated that four out of five patients with COVID-19 will recover at home without the need for medical attention. Symptoms of COVID-19 may include cough, fever, shortness of breath, loss of taste or smell and other flu-like symptoms including chills, sore muscles, sore throat, and headache. Severe illness is more common in older people and people with other health problems such as high blood pressure, obesity, and immune system problems. If the test is positive, you have COVID-19. You will be contacted by the ordering physicians office and instructed to remain on home isolation, in accordance with CDC guidelines. You may also be contacted by the [facility] to see if any of your close contacts may have been exposed to the virus and need to quarantine. If the test is negative, you likely do not have COVID-19 at this time, but you still may have a different illness that can spread to other people (like Influenza, or the Flu) and could still be at risk for getting COVID-19. We recommend that you stay away from other people to limit the spread of illness until your symptoms are improving and you are fever-free for 24 hours without the use of fever lowering medications such as acetaminophen or ibuprofen. No test is 100% accurate so if you are still concerned you may have COVID-19, talk to your doctor about the need to continue to stay away from others. Medicines Unless your provider told you not to use the following: Acetaminophen (Tylenol and others) is generally safe. Anti-inflammatory medications, such as Ibuprofen (Advil or Motrin) or Naproxen (Aleve) can also be used. Sjzd-jsa-hkfwcuh cough and cold medicines can be used according to the instructions on the package. Some qyqn-wze-kdppgoj medicines also contain acetaminophen. Make sure you are not taking more than your recommended dose. For those not hospitalized, there is no specific treatment available for this illness. Antibiotics do not treat Coronaviruses. Follow-Up Follow up with your doctor by scheduling a virtual visit or consider follow-up at one of our urgent care fever clinics. If you are having difficulty breathing, or are very weak and having difficulty standing, this is a medical emergency. Call 911 or have someone take you to the nearest emergency room immediately. If possible, wear a facemask. Additional guidance from the CDC for patients who tested POSITIVE for COVID-19 How to isolate: Isolate yourself in a specific room at home and limit your contact with others. Use a separate bathroom from other members of the household, when possible. Leave home only to get essential medical care. Do not go to work, school or public areas. Avoid using public transportation, ride-sharing, or taxis. Restrict contact with pets and other animals. If you must care for your pet or be around animals while you are sick, wash your hands before and after your interaction and wear a facemask. Make sure that shared spaces in the home have good airflow, such as by an air conditioner or an opened window, weather permitting. Personal Hygiene Procedures: Wear a face mask when in the same room as other people or pets. If a face mask interferes with your breathing, others should wear a mask when sharing space with you. Frequent hand-washing: wash your hands with soap and water for at least 20 seconds. If soap and water are not available, use alcohol-based hand brush sander. Avoid touching your eyes, nose, and mouth with unwashed hands. Household Hygiene Procedures: Avoid sharing personal household items such as dishes, glassware, cups, eating utensils, towels or bedding with other people or pets in your home. After use, these items should be washed with soap and hot water. Disinfect all high-touch surfaces every day with antibacterial cleaning solutions such as Lysol wipes, bleach, cleansers, etc. High-touch surfaces include tabletops, doorknobs, bathroom fixtures, toilets, phones, keyboards, tablets and bedside tables. Immediately clean any surfaces that may have blood, poop or body fluids on them, using antibacterial cleaning solutions such as Lysol wipes, bleach, cleansers, etc. If clothing or bedding come into contact with blood, poop or body fluids, they should be washed immediately. Follow the directions on the laundry detergent and clothing labels but hot water is recommended when possible. Stopping home isolation precautions: If possible, consult your doctor before stopping home isolation precautions. According to the CDC, you can discontinue home isolation precautions when you have met both of these criteria: Your fever and respiratory symptoms have been gone for 24 gideon (more content not included)... Normal [facility] Patient Profile - Preop v3on 12-20-2021 Patient Profile - Preop v3 Patient Profile - Preop: Initial Info: Patient DemographicsName: MELINA DÍAZ Date: 1975 Address: [address] [place] [address] Date/Time [id number] 12:53 Primary Phone [phone] Call Attemptedleft message; attempt 1 Instructions Giventime to arrive Prep Instructions Reviewedyes Message left for pt to arrive at 12:15 for 13:30 surgery. Encouraged to review pre-op instruction sheet and NPO at midnight Thursday. Requested return call with receipt of this information. Prep Typepre-op Instructed to Have No Fluids Aftermidnight How to be Addressedjen Spoken Language PreferredEnglish Source of Informationpatient Stated Reason for Admissionrevision gastric bypass Primary Contact Name and Numbermother Limitations on Visitors/Phone Callsnone Medications Brought to Hospitalno General Health: Weight in kg119 kilogram(s) Weight in wqa381.3 pound(s) Weight Methodstated Height in feet5 feet Height in inches7.95 inch(es) Height in cm172.5 centimeter(s) Height Methodstated BMI (kg/m2)39.991 square meter Patient or Family Member Reaction to Anesthesiano previous reaction Blood Avoidance/Restrictionsnone Previous Transfusion Reactionnot applicable Health Mgmt: Symptoms/Conditions Managed at [facility] Are You no Are You Currently Breastfeedingno Barriers to Managing Healthnone Relationship/Environ: Lives Withspouse Living Arrangementshouse Resource/Environmental Concernsnone Anticipated Transition [place] Services Anticipated at Transitionnone Tobacco Use: Tobacco Useno Pre-op Checklist: Arrival [id number] Arrival Time12:38 NPOyes Last Food [id number] 00:00 Last Clear Fluid [id number] 00:00 ID Band On Patientpatient ID (name), allergy, falls risk Consent Signedyes H&P Completeyes Anesthesia Assessment Completedyes EKG Performedsee results tab Chest X-Ray Performedsee results tab HCG Urine TestN/A Chlorhexadine Bath Givencompleted at home Soap and Water Bath the Night Before Surgeryyes Bowel Prepno Surgical Site Infection Preventionyes Pain Scales and Managementno Additional Information: Information Review: Allergies, Home Meds and Significant Events have been Reviewed and Verified with Patient/Familyyes Allergy, Intolerance, Adverse Event: Allergies: Tramadol Hydrochloride: Drug, Facial Swelling, Active Toradol: Drug, Unknown, Active Tape - Adhesive, Bandaids, Paper: Environment, Other, Active Aspartame: Food, Other, Active Electronic Signatures: Ingrid Underwood (PIETRO) (Signed 23-Dec-2021 13:16) Authored: Initial Info, General Health, Health Mgmt, Relationship/Environ, Tobacco Use, Pre-op Checklist, Additional Information Martha Silverio) (Signed 20-Dec-2021 12:57) Authored: Initial Info, Additional Information Last Updated: 23-Dec-2021 13:16 by Ingrid Underwood) Normal [facility] Blood Pressure Cuff Sizeon 0 12-19-2021 Fall risk assessment a) No falls within the last year QY-Huygxbz-Rl rma [id number] 303 Work Phone: Tobacco use status [facility] b) No SC-Vbgelkc-Wa rma MAC[address] 303 Work Phone: Blood Pressure Cuff Size Large KR-Secxxso-Rx rma MAC2 303 Work Phone: CBC AND DIFFERENTIALon 12-19 % AUTOMATED IMMATURE GRAN 0.2 % Normal 0.0 - 0.9 [facility] Comment on above: Result Comment: Yanni ture Granulocyte Count (IG) includes promyelocytes, myelocytes and metamyelocytes but does not include bands. Percent differential counts (%) should be interpreted in the context of the absolute cell counts (cells/L). Performed By: #### H H #### [address] [address] Basophils (Bld) [#/Vol] 0.05 10*3/uL Normal 0.00 - 0.10 [facility] Comment on above: Performed By: #### H H #### [address] [address] Basophils/100 WBC (Bld) 0.8 % Normal 0.0 - 2.0 [facility] Comment on above: Performed By: #### H H #### [address] [address] Eosinophils (Bld) [#/Vol] 0.19 10*3/uL Normal 0.00 - 0.70 [facility] Comment on above: Performed By: #### H H #### [address] [address] Eosinophils/100 WBC (Bld) 3.2 % Normal 0.0 - 6.0 [facility] Comment on above: Performed By: #### H H #### [address] [address] Erythrocyte distribution width (RBC) [Ratio] 14.0 % Normal 11.5 - 14.5 [facility] Comment on above: Performed By: #### H H #### [address] [address] Hematocrit (Bld) [Volume fraction] 39.7 % Normal 36.0 - 46.0 [facility] Comment on above: Performed By: #### H H #### [facility] [address] [place] [address], [place] [address] Hemoglobin (Bld) [Mass/Vol] 12.9 g/dL Normal 12.0 - 16.0 [facility] Comment on above: Performed By: #### H H #### [address] [place] [address] Lymphocytes (Bld) [#/Vol] 2.39 10*3/uL Normal 1.20 - 4.80 [facility] Comment on above: Performed By: #### H H #### [address] [place] [address] Lymphocytes/100 WBC (Bld) 40.6 % Normal 13.0 - 44.0 [facility] Comment on above: Performed By: #### H H #### [address] [place] [address] MCHC (RBC) [Mass/Vol] 32.5 g/dL Normal 32.0 - 36.0 [facility] Comment on above: Performed By: #### H H #### [address] [place] [address] MCV (RBC) [Entitic vol] 87 fL Normal 80 - 100 [facility] Comment on above: Performed By: #### H H #### [address] [place] [address] Monocytes (Bld) [#/Vol] 0.51 10*3/uL Normal 0.10 - 1.00 [facility] Comment on above: Performed By: #### H H #### [address] [place] [address] Monocytes/100 WBC (Bld) 8.7 % Normal 2.0 - 10.0 [facility] Comment on above: Performed By: #### H H #### [address] [place] [address] Neutrophils (Bld) [#/Vol] 2.74 10*3/uL Normal 1.20 - 7.70 [facility] Comment on above: Performed By: #### H H #### [facility] [address] [place] [address] Neutrophils/100 WBC (Bld) 46.5 % Normal 40.0 - 80.0 [facility] Comment on above: Performed By: #### H H #### [facility] [address] [place] [address] NUCLEATED RBC 0.0 /100 WBC Normal 0.0 - 0.0 [facility] Comment on above: Performed By: #### H H #### [address] [address] Platelets (Bld) [#/Vol] 254 10*3/uL Normal 150 - 450 [facility] Comment on above: Performed By: #### H H #### [address] [address] RBC 4.56 x10E12/L Normal 4.00 - 5.20 [facility] Comment on above: Performed By: #### H H #### [address] [address] WBC (Bld) [#/Vol] 5.9 10*3/uL Normal 4.4 - 11.3 [facility] Comment on above: Performed By: #### H H #### [address] [address] Complete Blood Count + Diffe rentialon 12-19-2021 Basophils/100 WBC (Bld) 0.8 % 0.0 - 2.0 HD-Yanodqj-Zx rma MAC2 303 Work Phone: Erythrocyte distribution width (RBC) [Ratio] 14.0 % See Below SQ-Gyfkkok-Xs rma MAC2 303 Work Phone: Comment on above: Reference Range: 11. 5 - 14.5 Hematocrit (Bld) [Volume fraction] 39.7 % See Below UH-Chypnow-Se rma MAC2 303 Work Phone: Comment on above: Reference Range: 36. 0 - 46.0 Hemoglobin (Bld) [Mass/Vol] 12.9 g/dL See Below LI-Hwbsuha-Rd rma MAC2 [address] Work Phone: Comment on above: Reference Range: 12. 0 - 16.0 Lymphocytes/100 WBC (Bld) 40.6 % See Below BJ-Xogxgdc-Vf rma MAC2 [address] Work Phone: Comment on above: Reference Range: 13. 0 - 44.0 MCHC (RBC) [Mass/Vol] 32.5 g/dL See Below MG- Surgery-Pa rma MAC2 [address] Work Phone: Comment on above: Reference Range: 32. 0 - 36.0 MCV (RBC) [Entitic vol] 87 fL 80 - 100 NQ-Nfcvxmp-Qp rma MAC2 [address] Work Phone: Monocytes/100 WBC (Bld) 8.7 % 2.0 - 10.0 WU-Sejmyrr-Ce rma MAC2 [address] Work Phone: Neutrophils/100 WBC (Bld) 46.5 % See Below BL-Chenbno-Gm rma MAC2 [address] Work Phone: Comment on above: Reference Range: 40. 0 - 80.0 Platelets (Bld) [#/Vol] 254 10*3/uL 150 - 450 GA-Ljbkqac-Lb rma MAC2 303 Work Phone: RBC (Bld) [#/Vol] 4.56 {x10E12/L} See Below MG -Surgery-Pa rma MAC2 303 Work Phone: Comment on above: Reference Range: 4.0 0 - 5.20 WBC (Bld) [#/Vol] 5.9 10*3/uL 4.4 - 11.3 MG-Amrit taye-Pa rma MAC2 303 Work Phone: Complete Blood Count + Differential 0.05 {x10E9/L} See Below RR-Ancfght-Mn rma MAC2 303 Work Phone: Comment on above: Reference Range: 0.0 0 - 0.10 Complete Blood Count + Differential 0.19 {x10E9/L} See Below LB-Dgrnaow-Fe rma MAC2 303 Work Phone: Comment on above: Reference Range: 0.0 0 - 0.70 Complete Blood Count + Differential 0.51 {x10E9/L} See Below XW-Pzllqwt-Mb rma MAC2 303 Work Phone: Comment on above: Reference Range: 0.1 0 - 1.00 Complete Blood Count + Differential 2.39 {x10E9/L} See Below FD-Bmpdigx-Tk rma MAC2 303 Work Phone: Comment on above: Reference Range: 1.2 0 - 4.80 Complete Blood Count + Differential 2.74 {x10E9/L} See Below KS-Nfmfldr-Cx rma MAC2 [address] Work Phone: Comment on above: Reference Range: 1.2 0 - 7.70 Complete Blood Count + Differential 3.2 % 0.0 - 6.0 LB-Trxbwoi-At rma MAC2 303 Work Phone: Complete Blood Count + Differential 0.2 % 0.0 - 0.9 QM-Rwxlahb-Dv rma MAC2 303 Work Phone: Comment on above: Immature Granulocyte Count (IG) includes promyelocytes, myelocytes and metamyelocytes but does not include bands. Percent differential counts (%) should be interpreted in the context of the absolute cell counts (cells/L). Complete Blood Count + Differential 0.0 {/100_WBC} 0.0 - 0.0 HJ-Cpndlxe-Kk rma MAC2 303 Work Phone: Laboratory - Blood bankon ABO group Nom (Bld) A MG-[place] rgery-Pa rma MAC2 [address] Work Phone: Blood group antibody screen Ql Negative AU-Wmilkha-Xg rma MAC2 303 Work Phone: Rh immune globulin screen (Bld) [Interp] Positive MG-Surgery -Pa rma MAC2 303 Work Phone: Nicotine+Metabolites, Serumo n 12-19-2021 Cotinine [Mass/Vol] <2 [facility]-[place] [facility] [address] [place] Work Phone: Nicotine [Mass/Vol] <2 [facility]-[place] [facility] [address] [place] Work Phone: Comment on above: Consistent with abst inence from nicotine-containingproducts for at least 1 week.INTERPRETIVE INFORMATION: Nicotine and Metabolites, Serum or Plasma, QuantitativeMethodology: Quantitative Liquid Chromatography-Tandem Mass SpectrometryPositive cutoff: 2 ng/mLFor medical purposes only; not valid for forensic use. This test is designed to evaluate recent use of nicotine-containing products. Passive and active exposure cannot be discriminated definitively, although a cutoff of 10 ng/mL cotinine is frequently used for surgery qualification purposes. For smoking cessation programs or compliance testing, the absence of expected drug(s) and/or drug metabolite(s) may indicate non-compliance, inappropriate timing of specimen collection relative to drug administration, poor drug absorption, or limitations of testing. This test cannot distinguish between use of tobacco and purified nicotine products. The concentration value must be greater than or equal to the cutoff to be reported as positive. This test was developed and its performance characteristics determined by [facility]. It has not been cleared or approved by the US Food and Drug Administration. This test was performed in a CLIA certified laboratory and is intended for clinical purposes.Performed By: [facility] [place] [id number] Director: Regina Oneill MD Mqdzv-1-Cyricukkjwuul ne [Mass/Vol] <2 ER-Bzdcjin-Gh [facility] 6th [place] Work Phone: TYPE + SCREENon 12-19-2021 ABO TYPE A Normal [facility] Comment on above: Performed By: #### T +S ####[address] [address] RH TYPE Positive Normal [facility] Comment on above: Performed By: #### T +S ####[address] [address] UA MICROSCOPICon 12-19-2021 BACTERIA 1+ /HPF Abnormal [facility] Comment on above: Performed By: #### U AMIC ####[facility] [place] [address] Mucus Ql (Urine sed) 1+ /LPF Normal [facility] Comment on above: Performed By: #### U AMIC ####[facility] [place] [address] RBC (U) [#/Vol] /uL Normal 0-5 [facility] Comment on above: Performed By: #### U AMIC ####[facility] [facility] [place] [place] [address] SQUAMOUS EPITH. CELLS 3 /HPF Normal [facility] Comment on above: Performed By: #### U AMIC ####[facility] [place] [address] WBC 3 /HPF Normal 0-5 [facility] Comment on above: Performed By: #### U AMIC ####[facility] [place] [address] Lab Specimen Source Normal [facility] Comment on above: Performed By: #### U AMIC ####[facility] [place] [address], [place] [address] Performed By: #### H H #### [facility] [address] [place] [address] URINALYSIS WITH CULTURE IF I NDICATEDon 12-19-2021 Appearance (U) CLEAR Normal CLEAR [facility] Comment on above: Performed By: #### H H #### [facility] [address] [place] [address] Bilirubin Ql (U) Negative Normal NEGATIVE [facility] Comment on above: Performed By: #### H H #### [facility] [address] [place] [address] Color (U) YELLOW Normal STRAW,YELL OW [facility] Comment on above: Performed By: #### H H #### [facility] [address] [facility] [place] [address] Glucose Ql (U) Negative Normal NEGATIVE [facility] Comment on above: Performed By: #### H H #### [facility] [address] [facility] [place] [address] Hemoglobin Ql (U) SMALL (1+) Abnormal NEGATIVE [facility] Comment on above: Performed By: #### H H #### [facility] [address] [facility] [place] [address] Ketones Ql (U) Negative Normal NEGATIVE [facility] Comment on above: Performed By: #### H H #### [facility] [address] [place] [address] Leukocyte esterase Test strip Ql (U) Negative Normal NEGATIVE [facility] Comment on above: Performed By: #### H H #### [facility] [address] [place] [address], [place] [address] Nitrite Ql (U) Negative Normal NEGATIVE [facility] Comment on above: Performed By: #### H H #### [facility] [address] [place] [address], [place] [address] pH (U) 5.0 [pH] Normal 5.0 - 8.0 [facility] Comment on above: Performed By: #### H H #### [address] [address] Protein Ql (U) Negative Normal NEGATIVE [facility] Comment on above: Performed By: #### H H #### [address] [address] Specific gravity (U) [Rel density] 1.030 Normal 1.005 - 1.035 [facility] Comment on above: Performed By: #### H H #### [address] [address] Urobilinogen (U) [Mass/Vol] mg/dL Normal 0.0 - 1.9 [facility] Comment on above: Performed By: #### H H #### [address] [address] Color (U) YELLOW See Below TG-Rqklxhh-Gq rma [facility] 303 Work Phone: Comment on above: SOURCE: Reference Ra nge: STRAW,YELLOW Glucose Ql (U) Negative NEGATIVE MG-Surgery -Pa rma [facility] 303 Work Phone: Ketones Ql (U) Negative NEGATIVE MG-Surgery -Pa rma [facility] 303 Work Phone: Leukocyte esterase Test strip Ql (U) Negative NEGATIVE IT-Lzkohrj-Cd rma [facility] 303 Work Phone: pH (U) 5.0 [pH] 5.0 - 8.0 WH-Koiexgz-Ti rma [facility] 303 Work Phone: Protein (U) [Mass/Vol] Negative NEGATIVE XY-Uesvobe-Xg rma [facility] 303 Work Phone: RBC (U) [#/Vol] SMALL (1+) Abnormal NEGATIVE MG-Surger y-Pa rma [facility] 303 Work Phone: Specific gravity (U) [Rel density] 1.030 1 See Below HV-Emlfkyl-Yv rma [facility] 303 Work Phone: Comment on above: Reference Range: 1.0 05 - 1.035 URINALYSIS WITH CULTURE IF INDICATED Negative NEGATIVE MG-Surgery- Pa rma [facility] 303 Work Phone: URINALYSIS WITH CULTURE IF INDICATED <2.0 0.0 - 1.9 MG-Surgery- Pa rma [facility] 303 Work Phone: URINALYSIS WITH CULTURE IF INDICATED CLEAR CLEAR MG-Surgery- Pa rma [facility] 303 Work Phone: Urinalysis, Microscopicon Urinalysis, Microscopic 1+ Abnormal MH-Kqdjcrg-Lw rma [facility] 303 Work Phone: Urinalysis, Microscopic 3 {/HPF} 0-5 MI-Rjtprkg-Lp rma [facility] 303 Work Phone: Comment on above: SOURCE: Urinalysis, Microscopic <1 0-5 AH-Lgsgwta-Ka rma [facility] 303 Work Phone: Tobacco Screening.on 022 Fall risk assessment a) No falls within the last year [facility] [place] [facility] Work Phone: Tobacco use status CPHS b) No [place] [place] [place] Work Phone: COMPREHENSIVE METABOLIC PANE Christian 12-04-2021 Albumin [Mass/Vol] 4.3 g/dL Normal 3.6-5.1 [facility] Comment on above: Performed By: #### 1 3651, 9713, 98553 #### [facility] of [address], [address] [place] [address] Tyre Retreader: Yevgeniy Markham MD Albumin/Globulin [Mass ratio] 1.7 {ratio} Normal 1.0-2.5 [facility] Comment on above: Performed By: #### 1 0231, 7600, 16523 #### [facility] of [address], [address] [place] [address] Tyre Retreader: Yevgeniy Markham MD ALP [Catalytic activity/Vol] 75 U/L Normal 31-125 [facility] Comment on above: Performed By: #### 1 0231, 7600, 01232 #### [facility] of [address], [address] [place] [address] Tyre Retreader: Yevgeniy Markham MD ALT [Catalytic activity/Vol] 12 U/L Normal 6-29 [facility] Comment on above: Performed By: #### 1 0231, 0, 14264 #### [facility] of [address], [address] [place] [address] Tyre Retreader: Yevgeniy Markham MD AST [Catalytic activity/Vol] 13 U/L Normal 10-35 [facility] Comment on above: Performed By: #### 1 0231, 7600, 58606 #### [facility] of [address], [address] [place] [address] Tyre Retreader: Yevgeniy Markham MD Bilirubin [Mass/Vol] 0.5 mg/dL Normal 0.2-1.2 [facility] Comment on above: Performed By: #### 1 0231, 7600, 51554 #### [facility] of [address], [address] [place] [address] Tyre Retreader: Yevgeniy Markham MD BUN/CREATININE RATIO NOT APPLICABLE Normal 6-22 [facility] Comment on above: Performed By: #### 1 0231, 7600, 12709 #### [facility] of [address], [address] [place] [address] Tyre Retreader: Yevgeniy Markham MD Calcium [Mass/Vol] 9.2 mg/dL Normal 8.6-10.2 [facility] Comment on above: Performed By: #### 1 023, 7599, 79647 #### [facility] of [address], [address] [place] [address] Tyre Retreader: Yevgeniy Markham MD Chloride [Moles/Vol] 104 mmol/L Normal 98-110 [facility] Comment on above: Performed By: #### 1 023, 7599, 31060 #### [facility] of [address], [address] [place] [address] Tyre Retreader: Yevgeniy Markham MD CO2 [Moles/Vol] 29 mmol/L Normal 20-32 [facility] Comment on above: Performed By: #### 1 023, 7599, 61857 #### [facility] [place] [address] Tyre Retreader: Yevgeniy Markham MD Creatinine [Mass/Vol] 0.64 mg/dL Normal 0.50-1.10 [facility] Comment on above: Performed By: #### 1 230, 7599, 14188 #### [facility] [place] [address] Tyre Retreader: Yevgeniy Markham MD eGFR NON-AFR. SIERRA LEONEAN 108 mL/min/1.73m2 Normal > OR = 60 [facility] Comment on above: Performed By: #### 1 230, 7599, 72877 #### [facility] of [place] [address] Tyre Retreader: Yevgeniy Markham MD GFR/1.73 sq M.predicted among blacks MDRD (S/P/Bld) [Vol rate/Area] 125 mL/min/{1.73_m2} Normal > OR = 60 [facility] Comment on above: Performed By: #### 1 023, 7599, 12859 #### [facility] of [place] [address] Tyre Retreader: Yevgeniy Markham MD Globulin (S) [Mass/Vol] 2.6 g/dL Normal 1.9-3.7 [facility] Comment on above: Performed By: #### 1 0231, 0, 47805 #### [facility] [place] [address] Tyre Retreader: Yevgeniy Markham MD Glucose [Mass/Vol] 101 mg/dL High 65-99 [facility] Comment on above: Result Comment: Fasting reference interval For someone without known diabetes, a glucose value between 100 and 125 mg/dL is consistent with prediabetes and should be confirmed with a follow-up test. Performed By: #### 1 0231, 0, 52106 #### [facility] [place] [address] Tyre Retreader: Yevgeniy Markham MD Potassium [Moles/Vol] 4.3 mmol/L Normal 3.5-5.3 [facility] Comment on above: Performed By: #### 1 023, 7599, 62905 #### [facility] of [place] [address] Tyre Retreader: Yevgeniy Markham MD Protein [Mass/Vol] 6.9 g/dL Normal 6.1-8.1 [facility] Comment on above: Performed By: #### 1 023, 7599, 58190 #### [facility] [place] [address] Tyre Retreader: Yevgeniy Markham MD Sodium [Moles/Vol] 140 mmol/L Normal 135-146 [facility] Comment on above: Performed By: #### 1 023, 7599, 19585 #### [facility] [place] [address] Tyre Retreader: Yevgeniy Markham MD Urea nitrogen [Mass/Vol] 12 mg/dL Normal 7-25 [facility] Comment on above: Performed By: #### 1 0231, 0, 33086 #### [facility] [place] [address] Tyre Retreader: Yevgeniy Markham MD LIPID PANEL, [facility] 11-13 Cholesterol [Mass/Vol] 194 mg/dL Normal <200 [facility] Comment on above: Order Comment: FASTI NG:UNKNOWN FASTING: UNKNOWN Performed By: #### 1 0231, 7600, 72157 #### [facility] [address], [address] [place] [address] Tyre Retreader: Yevgeniy Markham MD Cholesterol in HDL [Mass/Vol] 68 mg/dL Normal > OR = 50 [facility] Comment on above: Order Comment: FASTI NG:UNKNOWN FASTING: UNKNOWN Performed By: #### 1 0231, 7600, 84494 #### [facility] [address], [address] [place] [address] Tyre Retreader: Yevgeniy Markham MD Cholesterol in LDL [Mass/Vol] 108 mg/dL High [facility] Comment on above: Order Comment: FASTI NG:UNKNOWN FASTING: UNKNOWN Result Comment: Refe rence range: <100 Desirable range <100 mg/dL for primary prevention; <70 mg/dL for patients with CHD or diabetic patients with > or = 2 CHD risk factors. LDL-C is now calculated using the Fransico-Isaiah calculation, which is a validated novel method providing better accuracy than the Friedewald equation in the estimation of LDL-C. Fransico CHOI et al. LINA. 2013;310(19): 4010-9708 (http://education.Skuid.ecobee/faq/EYA538) Performed By: #### 1 0231, 4770, 93082 #### [facility] [address], [address] [place] [address] Tyre Retreader: Yevgeniy Markham MD Cholesterol.total/Cho lesterol in HDL [Mass ratio] 2.9 {ratio} Normal <5.0 [facility] Comment on above: Order Comment: FASTI NG:UNKNOWN FASTING: UNKNOWN Performed By: #### 1 0231, 7600, 61338 #### [facility] [address], [address] [place] [address] Tyre Retreader: Yevgeniy Markham MD NON HDL CHOLESTEROL 126 mg/dL (calc) Normal <130 [facility] Comment on above: Order Comment: FASTI NG:UNKNOWN FASTING: UNKNOWN Result Comment: For patients with diabetes plus 1 major ASCVD risk factor, treating to a non-HDL-C goal of <100 mg/dL (LDL-C of <70 mg/dL) is considered a therapeutic option. Performed By: #### 1 0231, 7600, 82561 #### [facility] [address], [address] [place] [address] Tyre Retreader: Yevgeniy Markham MD Triglyceride [Mass/Vol] 86 mg/dL Normal <150 [facility] Comment on above: Order Comment: FASTI NG:UNKNOWN FASTING: UNKNOWN Performed By: #### 1 0231, 7600, 04094 #### [facility] [address], [address] [place] [address] Tyre Retreader: Yevgeniy Markham MD TSH+FREE T4on 12-04-2021 Free T4 [Mass/Vol] 1.3 ng/dL Normal 0.8-1.8 [facility] Comment on above: Performed By: #### 1 0231, 7600, 85408 #### [facility] [place] [address] Tyre Retreader: Yevgeniy Markham MD TSH Qn 0.75 m[IU]/L Normal [facility] Comment on above: Result Comment: Refe rence Range > or = 20 Years 0.40-4.50 Ranges First trimester 0.26-2.66 Second trimester 0.55-2.73 Third trimester 0.43-2.91 Performed By: #### 1 0231, 7600, 07834 #### [facility] [address], [address] [place] [address] Tyre Retreader: Yevgeniy Markham MD Tobacco Screening.on 021 Fall risk assessment a) No falls within the last year [facility] [place] [place] Work Phone: Tobacco use status CPHS b) No [facility] [place] [facility] Work Phone: Tobacco Screening.on 021 Fall risk assessment a) No falls within the last year MP-Cardiology -Katharine SJW 200 Work Phone: Tobacco use status CP b) No MP-Cardiology -Katharine SJW 200 Work Phone: Laboratory - Chemistry and C hemistry - challengeon 06-02-2021 Albumin BCP dye [Mass/Vol] 3.3 g/dL below low threshold 3.4 - 5.0 IU-Xmgiqls-Jf rma [facility] 303 Work Phone: ALP [Catalytic activity/Vol] 41 U/L 33 - 110 DC-Yhybwua-Jt rma [facility] 303 Work Phone: ALT With P-5'-P [Catalytic activity/Vol] 85 U/L above high threshold 7 - 45 AU-Bdypjct-Sk rma [facility] Work Phone: Comment on above: Patients treated wit h Sulfasalazine may generate falsely decreased results for ALT. Anion gap [Moles/Vol] 9 mmol/L below low threshold 10 - 20 OI-Gdbbiyr-Bd rma [facility] 303 Work Phone: AST With P-5'-P [Catalytic activity/Vol] 82 U/L above high threshold 9 - 39 DQ-Zqmgswh-Vm rma [facility] Work Phone: Bilirubin [Mass/Vol] 0.3 mg/dL 0.0 - 1.2 MG-S urgery-Pa rma [facility] [place] Work Phone: Calcium [Mass/Vol] 8.3 mg/dL below low threshold 8.6 - 10.3 LW-Iyvwnyd-Um rma [facility] 303 Work Phone: Chloride [Moles/Vol] 109 mmol/L above high threshold 98 - 107 TW-Pdljsew-Ca rma [facility] 303 Work Phone: CO2 [Moles/Vol] 27 mmol/L 21 - 32 MG-Surger y-Pa rma [facility] 303 Work Phone: Creatinine [Mass/Vol] 0.67 mg/dL See Below MG- Surgery-Pa rma [facility] 303 Work Phone: Comment on above: Reference Range: 0.5 0 - 1.05 Glucose [Mass/Vol] 92 mg/dL 74 - 99 MG-Amrit taye-Pa rma [facility] 303 Work Phone: Potassium [Moles/Vol] 3.6 mmol/L 3.5 - 5.3 MG- Surgery-Pa rma [facility] 303 Work Phone: Protein [Mass/Vol] 5.3 g/dL below low threshold 6.4 - 8.2 IP-Gjbxosw-Fj rma [facility] Work Phone: Sodium [Moles/Vol] 141 mmol/L 136 - 145 MG-Amrit taye-Pa rma [facility] Work Phone: Urea nitrogen [Mass/Vol] 7 mg/dL 6 - 23 EB-Aambamp-He rma [facility] Work Phone: Laboratory - Hematology and Cell countson 06-02-2021 Erythrocyte distribution width (RBC) [Ratio] 13.9 % See Below KT-Ysybrot-Vs rma [facility] Work Phone: Comment on above: Reference Range: 11. 5 - 14.5 Hematocrit (Bld) [Volume fraction] 31.5 % below low threshold See Below CS-Dwbojdu-Sr rma [facility] Work Phone: Comment on above: Reference Range: 36. 0 - 46.0 Hemoglobin (Bld) [Mass/Vol] 10.1 g/dL below low threshold See Below AI-Otqbhle-Xg rma [facility] Work Phone: Comment on above: Reference Range: 12. 0 - 16.0 MCHC (RBC) [Mass/Vol] 32.1 g/dL See Below MG- Surgery-Pa rma [facility] 303 Work Phone: Comment on above: Reference Range: 32. 0 - 36.0 MCV (RBC) [Entitic vol] 88 fL 80 - 100 MP-Ykaitus-Hu rma [facility] 303 Work Phone: Platelets (Bld) [#/Vol] 173 10*3/uL 150 - 450 QW-Ufmmkjl-Ny rma [facility] 303 Work Phone: RBC (Bld) [#/Vol] 3.59 {x10E12/L} below low threshold See Below OS-Uyvleqd-Dn rma [facility] 303 Work Phone: Comment on above: Reference Range: 4.0 0 - 5.20 WBC (Bld) [#/Vol] 4.2 10*3/uL below low threshold 4.4 - 11.3 YK-Jcxltxk-Ic rma [facility] 303 Work Phone: Magnesium, Serumon 1 Magnesium [Mass/Vol] 1.80 mg/dL See Below MG-S urgery-Pa rma [facility] 303 Work Phone: Comment on above: Reference Range: 1.6 0 - 2.40 No Panel Informationon 06-02 >60 >60 OJ-Zfatlcd-Rt rma [facility] 303 Work Phone: Comment on above: CALCULATIONS OF RANDY MATED GFR ARE PERFORMED USING THE MDRD STUDY EQUATION FOR THE IDMS-TRACEABLE CREATININE METHODS. CLIN CHEM 2007;53:766-72 0.0 {/100_WBC} 0.0 - 0.0 MG-Surgery -Pa rma [facility] 303 Work Phone: Phosphorus, Serumon 06-02-20 21 Phosphate [Mass/Vol] 4.5 mg/dL 2.5 - 4.9 MG-S urgery-Pa rma [facility] 303 Work Phone: Comment on above: The performance ciara acteristics of phosphorus testing in heparinized plasma have been validated by the individual laboratory site where testing is performed. Testing on heparinized plasma is not approved by the FDA; however, such approval is not necessary. Laboratory - Chemistry and C hemistry - challengeon 06-01-2021 Albumin BCP dye [Mass/Vol] 4.0 g/dL 3.4 - 5.0 YR-Lfjzrmt-Ni rma [facility] 303 Work Phone: ALP [Catalytic activity/Vol] 51 U/L 33 - 110 OJ-Ysxuucm-Gn rma [facility] 303 Work Phone: ALT With P-5'-P [Catalytic activity/Vol] 89 U/L above high threshold 7 - 45 DN-Fmurpyt-Do rma [facility] Work Phone: Comment on above: Patients treated wit h Sulfasalazine may generate falsely decreased results for ALT. Anion gap [Moles/Vol] 12 mmol/L 10 - 20 MG- Surgery-Pa rma [facility] 303 Work Phone: AST With P-5'-P [Catalytic activity/Vol] 93 U/L above high threshold 9 - 39 OI-Mizjrjw-Bx rma [facility] 303 Work Phone: Bilirubin [Mass/Vol] 0.5 mg/dL 0.0 - 1.2 MG-S urgery-Pa rma [facility] Work Phone: Calcium [Mass/Vol] 8.7 mg/dL 8.6 - 10.3 MG-Amrit taye-Pa rma [facility] 303 Work Phone: Chloride [Moles/Vol] 106 mmol/L 98 - 107 MG-S urgery-Pa rma [facility] 303 Work Phone: CO2 [Moles/Vol] 26 mmol/L 21 - 32 MG-Surger y-Pa rma [facility] Work Phone: Creatinine [Mass/Vol] 0.67 mg/dL See Below MG- Surgery-Pa rma [facility] 303 Work Phone: Comment on above: Reference Range: 0.5 0 - 1.05 Glucose [Mass/Vol] 101 mg/dL above high threshold 74 - 99 BW-Thufcsy-Lu rma [facility] 303 Work Phone: Potassium [Moles/Vol] 3.7 mmol/L 3.5 - 5.3 MG- Surgery-Pa rma [facility] 303 Work Phone: Protein [Mass/Vol] 6.2 g/dL below low threshold 6.4 - 8.2 WA-Yidvvek-Sb rma [facility] 303 Work Phone: Sodium [Moles/Vol] 140 mmol/L 136 - 145 MG-Amrit taye-Pa rma [facility] 303 Work Phone: Urea nitrogen [Mass/Vol] 9 mg/dL 6 - 23 DK-Usylytn-Ns rma [facility] 303 Work Phone: Laboratory - Hematology and Cell countson 06-01-2021 Erythrocyte distribution width (RBC) [Ratio] 14.0 % See Below LA-Ialfpgg-Ct rma [facility] 303 Work Phone: Comment on above: Reference Range: 11. 5 - 14.5 Hematocrit (Bld) [Volume fraction] 33.5 % below low threshold See Below AW-Tyivzcu-Eh rma [facility] 303 Work Phone: Comment on above: Reference Range: 36. 0 - 46.0 Hemoglobin (Bld) [Mass/Vol] 10.8 g/dL below low threshold See Below GS-Mvsjbwc-Hq rma [facility] 303 Work Phone: Comment on above: Reference Range: 12. 0 - 16.0 MCHC (RBC) [Mass/Vol] 32.2 g/dL See Below MG- Surgery-Pa rma [facility] 303 Work Phone: Comment on above: Reference Range: 32. 0 - 36.0 MCV (RBC) [Entitic vol] 88 fL 80 - 100 LH-Jiahlin-Pr rma [facility] Work Phone: Platelets (Bld) [#/Vol] 173 10*3/uL 150 - 450 TS-Isjjmea-Cq rma [facility] 303 Work Phone: RBC (Bld) [#/Vol] 3.80 {x10E12/L} below low threshold See Below AE-Jcjlbyj-Nd rma [facility] 303 Work Phone: Comment on above: Reference Range: 4.0 0 - 5.20 WBC (Bld) [#/Vol] 5.9 10*3/uL 4.4 - 11.3 MG-Amrit taye-Pa rma [facility] Work Phone: Magnesium, Serumon 1 Magnesium [Mass/Vol] 1.80 mg/dL See Below MG-S urgery-Pa rma [facility] Work Phone: Comment on above: Reference Range: 1.6 0 - 2.40 No Panel Informationon 06-01 >60 >60 ID-Actcrzl-Da rma [facility] Work Phone: Comment on above: CALCULATIONS OF RANDY MATED GFR ARE PERFORMED USING THE MDRD STUDY EQUATION FOR THE IDMS-TRACEABLE CREATININE METHODS. CLIN CHEM 2007;53:766-72 0.0 {/100_WBC} 0.0 - 0.0 MG-Surgery -Pa rma [facility] 303 Work Phone: Phosphorus, Serumon 06-01-20 21 Phosphate [Mass/Vol] 4.0 mg/dL 2.5 - 4.9 MG-S urgery-Pa rma [facility] Work Phone: Comment on above: The performance ciara acteristics of phosphorus testing in heparinized plasma have been validated by the individual laboratory site where testing is performed. Testing on heparinized plasma is not approved by the FDA; however, such approval is not necessary. CT Abdomen and Pelvis with I V Contraston 05-31-2021 CT Abdomen and Pelvis W contrast IV Normal GZ-Cypyvnx-In rma [facility] Work Phone: Complete Blood Count + Diffe rentialon 05-31-2021 Basophils/100 WBC (Bld) 0.9 % 0.0 - 2.0 ON-Uoaavqq-Ta rma [facility] Work Phone: Erythrocyte distribution width (RBC) [Ratio] 13.8 % See Below XF-Bvdtggn-Yo rma [facility] 303 Work Phone: Comment on above: Reference Range: 11. 5 - 14.5 Hematocrit (Bld) [Volume fraction] 36.8 % See Below JJ-Dedavdu-Co rma [facility] 303 Work Phone: Comment on above: Reference Range: 36. 0 - 46.0 Hemoglobin (Bld) [Mass/Vol] 11.9 g/dL below low threshold See Below TX-Meegdiz-Mj rma [facility] 303 Work Phone: Comment on above: Reference Range: 12. 0 - 16.0 Lymphocytes/100 WBC (Bld) 33.6 % See Below DI-Emxpijk-Bd rma [facility] 303 Work Phone: Comment on above: Reference Range: 13. 0 - 44.0 MCHC (RBC) [Mass/Vol] 32.3 g/dL See Below MG- Surgery-Pa rma [facility] 303 Work Phone: Comment on above: Reference Range: 32. 0 - 36.0 MCV (RBC) [Entitic vol] 87 fL 80 - 100 MG-Svjqqbz-Jv rma [facility] 303 Work Phone: Monocytes/100 WBC (Bld) 9.6 % 2.0 - 10.0 KW-Octvmks-Mk rma [facility] 303 Work Phone: Neutrophils/100 WBC (Bld) 53.5 % See Below PE-Vtyjnaz-Ru rma [facility] 303 Work Phone: Comment on above: Reference Range: 40. 0 - 80.0 Platelets (Bld) [#/Vol] 234 10*3/uL 150 - 450 NM-Jmmnxci-Ek rma [facility] 303 Work Phone: RBC (Bld) [#/Vol] 4.21 {x10E12/L} See Below MG -Surgery-Pa rma [facility] 303 Work Phone: Comment on above: Reference Range: 4.0 0 - 5.20 WBC (Bld) [#/Vol] 5.9 10*3/uL 4.4 - 11.3 MG-Amrit taye-Pa rma [facility] 303 Work Phone: Complete Blood Count + Differential 0.05 {x10E9/L} See Below HW-Zawwtsc-Di rma [facility] 303 Work Phone: Comment on above: Reference Range: 0.0 0 - 0.10 Complete Blood Count + Differential 0.13 {x10E9/L} See Below FW-Kvxkkoj-Ai rma [facility]2 303 Work Phone: Comment on above: Reference Range: 0.0 0 - 0.70 Complete Blood Count + Differential 0.56 {x10E9/L} See Below VV-Erfzaqh-Xw rma MAC2 303 Work Phone: Comment on above: Reference Range: 0.1 0 - 1.00 Complete Blood Count + Differential 1.97 {x10E9/L} See Below PL-Teiaezl-Pl rma MAC2 303 Work Phone: Comment on above: Reference Range: 1.2 0 - 4.80 Complete Blood Count + Differential 3.14 {x10E9/L} See Below TK-Wkzhxch-Oa rma MAC2 303 Work Phone: Comment on above: Reference Range: 1.2 0 - 7.70 Complete Blood Count + Differential 2.2 % 0.0 - 6.0 MM-Efdolvq-If rma [facility] 303 Work Phone: Complete Blood Count + Differential 0.2 % 0.0 - 0.9 MI-Jevsvev-Qy rma MAC2 303 Work Phone: Comment on above: Immature Granulocyte Count (IG) includes promyelocytes, myelocytes and metamyelocytes but does not include bands. Percent differential counts (%) should be interpreted in the context of the absolute cell counts (cells/L). Complete Blood Count + Differential 0.0 {/100_WBC} 0.0 - 0.0 QL-Ribfnvd-Nn rma [facility] 303 Work Phone: Coronavirus 2019 RNA by PCR, Screening Asymptomticon 05-31-2021 Coronavirus 2019 RNA by PCR, Screening Asymptomtic Not detected Normal See Below NH-Dewzpbr-Pg rma MAC2 303 Work Phone: Comment on above: SOURCE: Nasal, Nasop haryngealReference Range: Not Detected.This test has received FDA Emergency Use Authorization (EUA) and has been verified by [facility]. This test is only authorized for the duration of time that circumstances exist to justify the authorization of the emergency use of in vitro diagnostic tests for the detection of SARS-CoV-2 virus and/or diagnosis of COVID-19 infection under section 564(b)(1) of the Act, 21 U.S.C. 360bbb-3(b)(1), unless the authorization is terminated or revoked sooner. [facility] is certified under CLIA-88 as qualified to perform high complexity testing. Testing is performed in the [facility] laboratory located at [address] [place] [address].SARS-CoV-2/Flu/RSV Multiplex Test: Fact sheet for providers: https://www.fda.gov/media/086457/downloadFact sheet for patients: https://www.fda.gov/media/461477/download HCG, Beta Quantitativeon HCG.beta subunit Qn 4 m[IU]/mL MG-[place] rgery-Pa rma MAC2 303 Work Phone: Comment on above: Low-level positive H CG results can be seen in early , in anita- or post-menopausal females due to normal pituitary HCG production, or with analytic interference. Repeat testing in 48-72 hours can aid in assessing for as results should double in this time period. FSH measurement is recommended in anita- or post-menopausal females as concurrent elevation of FSH can support pituitary production as the source of the HCG elevation.. Total HCG measurement is performed using the Srinivasan Evelyn Access Immunoassay which detects intact HCG and free beta HCG subunit. This test is not indicated for use as a tumor marker. HCG testing is performed using a different test methodology at [facility] than other [facility]. Direct result comparison should only be made within the same method. REF VALUESNON FEMALE <5MALES <5 Laboratory - Chemistry and C hemistry - challengeon 05-31-2021 Albumin BCP dye [Mass/Vol] 4.4 g/dL 3.4 - 5.0 GU-Usskpst-Im rma MAC2 303 Work Phone: ALP [Catalytic activity/Vol] 57 U/L 33 - 110 BX-Oydsxev-Oz rma MAC2 303 Work Phone: ALT With P-5'-P [Catalytic activity/Vol] 77 U/L above high threshold 7 - 45 ZP-Mvghvgg-Iz rma MAC2 303 Work Phone: Comment on above: Patients treated wit h Sulfasalazine may generate falsely decreased results for ALT. Anion gap [Moles/Vol] 12 mmol/L 10 - 20 MG- Surgery-Pa rma MAC2 303 Work Phone: AST With P-5'-P [Catalytic activity/Vol] 90 U/L above high threshold 9 - 39 DJ-Mxovagq-Ud rma MAC2 303 Work Phone: Comment on above: MILD HEMOLYSIS DETEC NICK. The result may be falsely elevated due tohemolysis or other interferents. Clinical correlation is recommended.Repeat testing may be considered. Bilirubin [Mass/Vol] 0.4 mg/dL 0.0 - 1.2 MG-S urgery-Pa rma [facility] 303 Work Phone: Calcium [Mass/Vol] 9.1 mg/dL 8.6 - 10.3 MG-Amrit taye-Pa rma [facility] 303 Work Phone: Chloride [Moles/Vol] 105 mmol/L 98 - 107 MG-S urgery-Pa rma MAC2 303 Work Phone: CO2 [Moles/Vol] 27 mmol/L 21 - 32 MG-Surger y-Pa rma [facility] 303 Work Phone: Creatinine [Mass/Vol] 0.73 mg/dL See Below MG- Surgery-Pa rma MAC2 303 Work Phone: Comment on above: Reference Range: 0.5 0 - 1.05 Glucose [Mass/Vol] 123 mg/dL above high threshold 74 - 99 NG-Crngnhn-Nf rma MAC2 303 Work Phone: Potassium [Moles/Vol] 4.2 mmol/L 3.5 - 5.3 MG- Surgery-Pa rma MAC2 303 Work Phone: Comment on above: MILD HEMOLYSIS DETEC NICK. The result may be falsely elevated due tohemolysis or other interferents. Clinical correlation is recommended.Repeat testing may be considered. Protein [Mass/Vol] 6.7 g/dL 6.4 - 8.2 MG-Amrit taye-Pa rma MAC2 303 Work Phone: Sodium [Moles/Vol] 140 mmol/L 136 - 145 MG-Amrit taye-Pa rma MAC2 303 Work Phone: Urea nitrogen [Mass/Vol] 10 mg/dL 6 - 23 LI-Xkzmnth-Lp rma MAC2 303 Work Phone: Lactate, Levelon 05-31-2021 Lactate [Moles/Vol] 0.5 mmol/L 0.4 - 2.0 MG-[place] rgery-Pa rma MAC2 303 Work Phone: Comment on above: Venipuncture immedia tely after or during the administration of Metamizole may lead to falsely low results. Testing should be performed immediately prior to Metamizole dosing. Lactate [Moles/Vol] Canceled MG-[place] rgery-Pa rma MAC2 303 Work Phone: Comment on above: Venipuncture immedia tely after or during the administration of Metamizole may lead to falsely low results. Testing should be performed immediately prior to Metamizole dosing. Lipase, Serumon 05-31-2021 Lipase [Catalytic activity/Vol] 10 U/L 9 - 82 OQ-Tdsbwpf-Ow rma MAC2 303 Work Phone: Comment on above: Venipuncture immedia tely after or during the administration of Metamizole may lead to falsely low results. Testing should be performed immediately prior to Metamizole dosing. P-wnmank-z-benzoquinone imine (metabolite of Acetaminophen) will generate erroneously low results in samples for patients that have taken toxic doses of acetaminophen. No Panel Informationon 05-31 >60 >60 YB-Wngynzt-Ca rma MAC2 303 Work Phone: Comment on above: CALCULATIONS OF RANDY MATED GFR ARE PERFORMED USING THE MDRD STUDY EQUATION FOR THE IDMS-TRACEABLE CREATININE METHODS. CLIN CHEM 2007;53:766-72 [email or web address] [email or web address]?R etrieveTestByDateTime?Donita [id number]&Date=&Time=19%3a53%3a21%3a 00&TestType=ECG&Site=12&Ou tputType=PDF&Ext=PDF BU-Wvaogyi-Hp rma MAC2 303 Work Phone: Sinus rhythm with si nus arrhythmia YE-Eewvyvz-Ev rma MAC2 303 Work Phone: Borderline Abnormal MG-[place] rgery-Pa rma MAC2 303 Work Phone: [phone] TB-Kwnitwp-Oc rma MAC2 303 Work Phone: [phone] JT-Tcambkq-Fy rma MAC2 303 Work Phone: [phone] OK-Yptgyuj-Xd rma MAC2 303 Work Phone: [phone] VS-Lpfwoka-Og rma MAC2 303 Work Phone: [phone] XT-Zbjywzs-Vp rma MAC2 303 Work Phone: [phone] WW-Tkpodxp-Kl rma MAC2 303 Work Phone: [phone] QI-Hpxzxeg-Wr rma MAC2 303 Work Phone: [phone] LG-Nhrsynz-Oe rma MAC2 303 Work Phone: [phone] ED-Vohvdal-Mq rma MAC2 303 Work Phone: [phone] ZW-Ainiuql-Or rma MAC2 303 Work Phone: [phone] WQ-Tnwqdbi-Ee rma MAC2 303 Work Phone: [phone] EQ-Minexqm-Ho rma MAC2 303 Work Phone: [phone] FA-Cfccudr-Qp rma MAC2 303 Work Phone: Troponin I, Serumon 05-31-20 21 Troponin I.cardiac [Mass/Vol] ng/mL See Below KL-Afmrrxx-Ww rma MAC2 303 Work Phone: Comment on above: Reference Range: 0.0 0 - 0.03LESS THAN 0.04 NG/ML: NEGATIVEREPEAT TESTING IN THREE TO SIX HOURSIF CLINICALLY INDICATED.0.04 - 0.5 NG/ML: CONSISTENT WITH POSSIBLECARDIAC DAMAGE AND POSSIBLE INCREASEDCLINICAL RISK.SERIAL MEASUREMENTS MAY HELP ASSESS EXTENT OFMYOCARDIAL DAMAGE.>0.5 NG/ML: CONSISTENT WITH CARDIAC DAMAGE,INCREASED CLINICAL RISK AND MYOCARDIALINFARCTION. SERIAL MEASUREMENTS MAY HELPASSESS EXTENT OF MYOCARDIAL DAMAGE..Note: Troponin I testing is performed using different testing methodology at [facility] than at other [facility]. Direct result comparisons should only be made within the same method. Urinalysison 05-31-2021 Color (U) YELLOW See Below BN-Iypundt-Uy rma MAC2 303 Work Phone: Comment on above: Reference Range: STR AW,YELLOW Glucose Ql (U) Negative NEGATIVE MG-Surgery -Pa rma [facility] [place] 303 Work Phone: Ketones Ql (U) 5 (TRACE) Abnormal NEGATIVE MG-Surgery -Pa rma [facility] 303 Work Phone: Leukocyte esterase Test strip Ql (U) TRACE Abnormal NEGATIVE DK-Uojttok-Nu rma [facility] 303 Work Phone: pH (U) 5.0 [pH] 5.0 - 8.0 IZ-Fekffzf-Xv rma [facility] [place] 303 Work Phone: Protein (U) [Mass/Vol] Negative NEGATIVE EB-Lnpsona-Fi rma MAC2 303 Work Phone: RBC (U) [#/Vol] Negative NEGATIVE MG-Surger y-Pa rma [facility] 303 Work Phone: Specific gravity (U) [Rel density] 1.015 1 See Below BA-Mowgdrz-Vm rma MAC2 303 Work Phone: Comment on above: Reference Range: 1.0 05 - 1.035 Urinalysis Negative NEGATIVE YI-Jqsoote-Yp rma MAC2 303 Work Phone: Urinalysis <2.0 0.0 - 1.9 AC-Hjthdxq-Np rma MAC2 303 Work Phone: Urinalysis CLEAR CLEAR KB-Rlrebly-Hj rma MAC2 303 Work Phone: Urinalysis, Microscopicon Urinalysis, Microscopic 2 {/HPF} HC-Aajvnpf-Xa rma MAC2 303 Work Phone: Urinalysis, Microscopic 0-2 Abnormal 0-5 XX-Pggodzq-Er rma MAC2 303 Work Phone: Urinalysis, Microscopic 0-5 0-5 MP-Yxkgzyv-Eb rma MAC2 303 Work Phone: BASIC METABOLIC PANELon 05-15 Anion gap [Moles/Vol] 8 mmol/L Low 10 - 20 MG- Surgery-Pa rma MAC2 303 Work Phone: Comment on above: Performed By: #### H H #### [address] [address] Calcium [Mass/Vol] 8.8 mg/dL Normal 8.6 - 10.3 MG-Amrit taye-Pa rma MAC2 303 Work Phone: Comment on above: Performed By: #### H H #### [address] [address] Chloride [Moles/Vol] 107 mmol/L Normal 98 - 107 MG-S urgery-Pa rma MAC2 303 Work Phone: Comment on above: Performed By: #### H H #### [address] [address] Creatinine [Mass/Vol] 0.68 mg/dL Normal 0.50 - 1.05 YV-Mjbaotv-Bi rma MAC2 303 Work Phone: Comment on above: Reference Range: 0.5 0 - 1.05 Performed By: #### H H #### [address] [address] GFR- AM. >60 Normal >60 [facility] Comment on above: Result Comment: CALC ULATIONS OF ESTIMATED GFR ARE PERFORMED USING THE MDRD STUDY EQUATION FOR THE IDMS-TRACEABLE CREATININE METHODS. CLIN CHEM 2007;53:766-72 Performed By: #### H H #### [address] [address] GFR-NON AM. >60 Normal >60 [facility] Comment on above: Performed By: #### H H #### [address] [address] Glucose [Mass/Vol] 94 mg/dL Normal 74 - 99 MG-Amrit taye-Pa rma MAC2 303 Work Phone: Comment on above: Performed By: #### H H #### [address] [address] HCO3 (Bld) [Moles/Vol] 30 mmol/L Normal 21 - 32 [facility] Comment on above: Performed By: #### H H #### [address] [address] Potassium [Moles/Vol] 4.0 mmol/L Normal 3.5 - 5.3 MG- Surgery-Pa rma MAC2 303 Work Phone: Comment on above: Performed By: #### H H #### [address] [address] Sodium [Moles/Vol] 141 mmol/L Normal 136 - 145 MG-Amrit taye-Pa rma MAC2 303 Work Phone: Comment on above: Performed By: #### H H #### [address] [address] Urea nitrogen [Mass/Vol] 7 mg/dL Normal 6 - 23 MJ-Wfzkwkb-Fy rma MAC2 303 Work Phone: Comment on above: Performed By: #### H H #### [address] [address] CBCon 05-30-2021 Erythrocyte distribution width (RBC) [Ratio] 13.6 % Normal 11.5 - 14.5 VR-Rdntzxr-Ed rma MAC2 303 Work Phone: Comment on above: Reference Range: 11. 5 - 14.5 Performed By: #### C BC ####[address] [address] Hematocrit (Bld) [Volume fraction] 33.6 % Low 36.0 - 46.0 NA-Zprppmr-Iy rma MAC2 303 Work Phone: Comment on above: Reference Range: 36. 0 - 46.0 Performed By: #### C BC ####[address] [address] Hemoglobin (Bld) [Mass/Vol] 11.1 g/dL Low 12.0 - 16.0 DX-Dhkyznc-Xl rma MAC2 303 Work Phone: Comment on above: Reference Range: 12. 0 - 16.0 Performed By: #### C BC ####[address] [address] MCHC (RBC) [Mass/Vol] 33.0 g/dL Normal 32.0 - 36.0 UQ-Lneejka-Wx rma MAC2 303 Work Phone: Comment on above: Reference Range: 32. 0 - 36.0 Performed By: #### C BC ####[address] [address] MCV (RBC) [Entitic vol] 88 fL Normal 80 - 100 OF-Pyiexip-Tu rma MAC2 303 Work Phone: Comment on above: Performed By: #### C BC ####[address] [address] NUCLEATED RBC 0.0 /100 WBC Normal 0.0 - 0.0 [facility] Comment on above: Performed By: #### C BC ####[address] [address] Platelets (Bld) [#/Vol] 180 10*3/uL Normal 150 - 450 GF-Czrhvrg-Gs rma MAC2 303 Work Phone: Comment on above: Performed By: #### C BC ####[address] [address] RBC 3.80 x10E12/L Low 4.00 - 5.20 [facility] Comment on above: Performed By: #### C BC ####[facility] [place] [address] WBC (Bld) [#/Vol] 3.7 10*3/uL Low 4.4 - 11.3 MG-Amrit taye-Pa rma MAC2 303 Work Phone: Comment on above: Performed By: #### C BC ####[facility] [place] [address] Daily Progress Note-Gastroen terologyon 05-30-2021 Daily Progress Note-Gastroenterology Service: Gastroenterology Subjective Data: MELINA DÍAZ is a 45 year old Female who is Hospital Day # 7. Patient continues to complain of abdominal pain. She feels it is less than before she also feels nauseated. She continues to be anxious On exam she is alert and oriented x3 very anxious lady heart showed no tachycardia lungs were clear I examined the abdomen very carefully she complains of pain in the area of the rectus muscle today when I examined her she has folds of fat within the on the abdomen even pinching these causes the pain. I used this as an example to educate the patient that her pains are not intra-abdominal in nature. Objective Data: Objective Information: T PRBPSpO2 [id number]% Date/Time05/30 13: 13: 13: 13: 13:14 Range(36.1C - 36.5C ) (71 - 88 ) (18 - 18 ) (116 - 137 )/ (58 - 75 ) (92% - 97% ) Pain reported at 05/30 13:14: 4 = Moderate Medication: Medications: Continuous Medications ------ 1. Sodium Chloride 0.9% Infusion: 1000 mL IntraVenous Scheduled Medications ------ 1. Amphetamine - Dextroamphetamine: 20 mg Oral 2 Times a Day 2. Docusate: 100 mg Oral 2 Times a Day 3. Gabapentin: 300 mg Oral 3 Times a Day 4. Heparin SubCutaneous: 5000 unit(s) SubCutaneous Every 8 Hours 5. Iohexol (Omnipaque 350-Radiology Contrast): 150 mL IntraVenous Push Once 6. Levothyroxine: 50 microgram(s) Oral Daily 7. Pantoprazole Injectable: 40 mg IntraVenous Push Every 12 Hours 8. Sucralfate Oral Liquid: 1 gram(s) Oral 4 Times a Day Before Meals PRN Medications ------ 1. Cyclobenzaprine: 5 mg Oral 3 Times a Day 2. hydrOXYzine Pamoate (VISTARIL): 50 mg Oral Every 6 Hours 3. Ketorolac Injectable: 30 mg IntraVenous Push Every 6 Hours 4. Promethazine IV Piggy Back: 12.5 mg IntraVenous Piggyback Every 6 Hours Recent Lab Results: Results: CBC: 05/30/2021 08:00 \ Hgb / \ 11.1 L / WBC Plt 3.7 L 180 / Hct \ / 33.6 L \ RBC: 3.80 L MCV: 88 BMP: 05/30/2021 08:00 NA+ Cl- BUN / 141 107 7 / ------ Glucose - 94 K+ HCO3- Creat \ 4.0 30 0.68 \ Calcium : 8.8 Anion Gap : 8 L I have reviewed these laboratory results: Complete Blood Count [Drawn 30-May-2021 08:00:00]. Radiology Results: Results: Impression: 1. Small hiatal hernia with fairly marked gastroesophageal reflux. 2. Somewhat delayed transit of barium through the small bowel loops reaching the colon by the 5.5 hour exam. 3. Suboptimal evaluation of the stomach as described, otherwise unremarkable. Xray Upper GI with SBFT [May 29 2021 5:04PM] Impression: 1. No CT evidence of acute intra-abdominal abnormality. 2. Stable appearingintra-abdominal findings since comparison CT 05/24/2021. CT Abdomen and Pelvis with IV Contrast [May 28 2021 8:46PM] Impression: No evidence of bowel obstruction or acute appendicitis. Postsurgical change of cholecystectomy. No significant free abdominal or pelvic fluid. CT Abdomen and Pelvis with IV Contrast [May 24 2021 8:38PM] Assessment and Plan: Code Status: Code StatusFull Code Assessment: This patient has had extensive investigations including 2 CAT scans and a GI series which has shown no serious abnormalities were found for her pain. I feel given these negative test results and the fact that she is tender in the upper margin of the rectus and indicating that it is of muscular pain. I have spent some amount of my time trying to reassure her and explain to the nature of her pain. She should be treated symptomatically and obviously reexamined if there is any change in the nature of her pain Electronic Signatures: Elmer Lindsay) (Signed 30-May-2021 14:33) Authored: Service, Subjective Data, Objective Data, Assessment and Plan, Note Completion Last Updated: 30-May-2021 14:33 by Elmer Lindsay) Normal [facility] Discharge [id number] Discharge Profile2 Discharge Orders: Anticipated Discharge Date: Anticipated Discharge [id number] DNAR: DNAR Status: none Provider FINAL REVIEW of Orders: Final Review: Final Review of Medication Reconciliation and Orders Completedby Physician Reviewing ProviderChrisge Ayala DO at 30-May-2021 13:15:44 Electronic Signatures: Jose Ayala) (Signed 30-May-2021 13:15) Authored: Discharge Orders, Provider FINAL REVIEW of Orders, Gold Form - Chorus Dancer Summary Last Updated: 30-May-2021 13:15 by Jose Ayala () Normal [facility] Laboratory - Chemistry and C hemistry - challengeon 05-30-2021 CO2 [Moles/Vol] 30 mmol/L 21 - 32 MG-Surger y-Pa rma MAC2 303 Work Phone: Laboratory - Hematology and Cell countson 05-30-2021 RBC (Bld) [#/Vol] 3.80 {x10E12/L} below low threshold See Below KP-Scjeqtj-Dk rma MAC2 303 Work Phone: Comment on above: Reference Range: 4.0 0 - 5.20 No Panel Informationon 05-30 >60 >60 FV-Egnrmbw-Zq rma MAC2 303 Work Phone: Comment on above: CALCULATIONS OF RANDY MATED GFR ARE PERFORMED USING THE MDRD STUDY EQUATION FOR THE IDMS-TRACEABLE CREATININE METHODS. CLIN CHEM 2007;53:766-72 0.0 {/100_WBC} 0.0 - 0.0 MG-Surgery -Pa rma MAC2 303 Work Phone: Order Reconciliationon 05-30 Order Reconciliation Page 1 Discharge Reconciliation Document Reconciliation Type: Discharge requested on behalf of Jose Ayala (Physician) done by Jose Ayala () Discharge - Reconciliation: 30-May-2021 13:15 by: Jose Ayala () Discharge - Reset to Incomplete: 30-May-2021 13:16 by: Jose Ayala () Discharge - Reconciliation: 30-May-2021 13:17 by: Jose Ayala () Home Medications EnteredHOME MEDICATIONS AT DISCHARGE DateReconciliation Comment/ Additional Information Adderall 20 mg oral tablet 1 tab(s) orally 2 times a day 25-May-2021 00:37 Adderall 20 mg oral tablet 1 tab(s) orally 2 times a day 25-May-2021 00:37 Adderall 20 mg oral tablet is continued as Adderall 20 mg oral tablet ALPRAZolam 0.5 mg oral tablet 1 tab(s) orally once a day, As Needed 25-May-2021 00:44 ALPRAZolam 0.5 mg oral tablet 1 tab(s) orally once a day, As Needed 25-May-2021 00:44 ALPRAZolam 0.5 mg oral tablet is continued as ALPRAZolam 0.5 mg oral tablet B-12 1000 mcg oral tablet 1000 microgram(s) injectable once a week 25-May-2021 00:40 B-12 1000 mcg oral tablet 1000 microgram(s) injectable once a week 25-May-2021 00:40 B-12 1000 mcg oral tablet is continued as B-12 1000 mcg oral tablet oxyCODONE 5 mg oral capsule 1 cap(s) orally every 6 hours, As Needed 25-May-2021 00:41 oxyCODONE 5 mg oral capsule 1 cap(s) orally every 6 hours, As Needed 25-May-2021 00:41 oxyCODONE 5 mg oral capsule is continued as oxyCODONE 5 mg oral capsule pantoprazole 40 mg oral delayed release tablet 1 tab(s) orally 2 times a day 25-May-2021 00:37 pantoprazole 40 mg oral delayed release tablet 1 tab(s) orally 2 times a day 30-May-2021 13:13 Discontinued; Copy/Discontinue Prescription is created for pantoprazole 40 mg oral delayed release tablet Reglan 10 mg oral tablet 1 tab(s) orally 3 times a day 25-May-2021 00:38 Reglan 10 mg oral tablet 1 tab(s) orally 3 times a day 30-May-2021 13:12 Discontinued; Copy/Discontinue Prescription is created for Reglan 10 mg oral tablet Synthroid 50 mcg (0.05 mg) oral tablet 1 tab(s) orally once a day 25-May-2021 00:43 Synthroid 50 mcg (0.05 mg) oral tablet 1 tab(s) orally once a day 25-May-2021 00:43 Synthroid 50 mcg (0.05 mg) oral tablet is continued as Synthroid 50 mcg (0.05 mg) oral tablet Current OrdersDateHOME MEDICATIONS AT DISCHARGE DateReconciliation Comment/ Additional Information Amphetamine - Dextroamphetamine Tablet (ADDERALL)DOSE = 20 mg Oral 2 Times a DayClinician Notes: pharmacy does not stock. please ask family to provide from home supply. send to pharmacy for identifcation prior to administration. pharmacy [facility] a 25-May-2021 14:54 Amphetamine - Dextroamphetamine is not required Cyclobenzaprine Tablet (FLEXERIL)DOSE = 5 mg Oral 3 Times a Day, PRN abd pain/cramps 29-May-2021 14:09 Cyclobenzaprine is not required Docusate Capsule (COLACE)DOSE = 100 mg Oral 2 Times a Day 25-May-2021 00:12 docusate sodium 100 mg oral capsule 1 cap(s) orally 2 times a day 30-May-2021 13:12 Prescription is created for docusate sodium 100 mg oral capsule Gabapentin Capsule (NEURONTIN)DOSE = 300 mg Oral 3 Times a Day 29-May-2021 16:39 gabapentin 300 mg oral capsule 1 cap(s) orally 3 times a day 30-May-2021 13:16 Prescription is created for gabapentin 300 mg oral capsule Heparin SubCutaneous DOSE = 5,000 unit(s) SubCutaneous Every 8 HoursNotes from Pharmacy: Note Concentration Prior to Administration 25-May-2021 00:12 Heparin SubCutaneous is not required hydrOXYzine Pamoate (VISTARIL) CapsuleDOSE = 50 mg Oral Every 6 Hours, PRN anxiety 29-May-2021 22:16 hydrOXYzine Pamoate (VISTARIL) is not required Iohexol (Omnipaque 350-Radiology Contrast) (OMNIPAQUE)DOSE = 150 mL IntraVenous Push OnceCa.269 mL/Kg/DOSE x 118.2 Kg = 150 mL/Dose (Daily Total is 150 mL)LABS: Blood Urea Nitrogen, Serum,7,28-May-2021 08:41:40 Creatinine, Serum,0.70,14-S 28-May-2021 16:02 Iohexol (Omnipaque 350-Radiology Contrast) is not required Iohexol (Omnipaque 350-Radiology Contrast) (OMNIPAQUE)DOSE = 150 mL IntraVenous Push OnceCa.269 mL/Kg/DOSE x 118.2 Kg = 150 mL/Dose (Daily Total is 150 mL) 24-May-2021 18:15 Iohexol (Omnipaque 350-Radiology Contrast) is not required Iohexol (Omnipaque 350-Radiology Contrast) (OMNIPAQUE)DOSE = 150 mL IntraVenous Push OnceCa.269 mL/Kg/DOSE x 118.2 Kg = 150 mL/Dose (Daily Total is 150 mL) 24-May-2021 18:31 Iohexol (Omnipaque 350-Radiology Contrast) is not required Ketorolac Injectable (TORADOL)DOSE = 30 mg IntraVenous Push Every 6 Hours, PRN Pain - Mod (4-6) 29-May-2021 16:55 Ketorolac Injectable is not required Levothyroxine Tablet (SYNTHROID)DOSE = 50 microgram(s) Oral DailyClinician Notes: Enteral feedings are held 1 hour pre and post dose 25-May-2021 02:18 Levothyroxine is not required Pantoprazole Injectable (PROTONIX)DOSE = 40 mg IntraVenous Push Every 12 Hours 25-May-2021 16:53 Pantoprazole Injectable is not req (more content not included)... Normal [facility] Daily Progress Note-General Internal Medicineon 05-29-2021 Daily Progress Note-General Internal Medicine Service: General Internal Medicine Subjective Data: MELINA DÍAZ is a 45 year old Female who is Hospital Day # 6. Additional Information: Patient requesting increased pain meds overnight. Objective Data: Objective Information: T PRBPSpO2 [id number]% Date/Time05/29 19: 19: 16: 19: 19:54 Range(36.2C - 36.5C ) (70 - 88 ) (16 - 18 ) (114 - 136 )/ (57 - 75 ) (92% - 96% ) Pain reported at 05/29 16:30: 8 = Severe Physical Exam by System: Constitutional: Well developed, awake/alert/oriented x3, no distress, alert and cooperative Eyes: PERRL, EOMI, clear sclera ENMT: mucous membranes moist, no apparent injury, no lesions seen Head/Neck: Neck supple, no apparent injury, thyroid without mass or tenderness, No JVD, trachea midline, no bruits Respiratory/Thorax: Patent airways, CTAB, normal breath sounds with good chest expansion, thorax symmetric Cardiovascular: Regular, rate and rhythm, no murmurs, 2+ equal pulses of the extremities, normal S 1and S 2 Gastrointestinal: Nondistended, soft, no pain when pushing on abdomen with stethoscope but reports pain to very light touch when palpated Musculoskeletal: ROM intact, no joint swelling, normal strength Extremities: normal extremities, no cyanosis edema, contusions or wounds, no clubbing Neurological: alert and oriented x3, intact senses, motor, response and reflexes, normal strength Lymphatic: No significant lymphadenopathy Psychological: Appropriate mood and behavior Skin: Warm and dry, no lesions, no rashes; loose skin Recent Lab Results: Results: CBC: 05/28/2021 07:47 \ Hgb / \ 11.7 L / WBC Plt 4.4 218 / Hct \ / 37.1 \ RBC: 4.13 MCV: 90 BMP: 05/28/2021 07:47 NA+ Cl- BUN / 142 108 H 7 / ------ Glucose - 83 K+ HCO3- Creat \ 4.1 27 0.70 \ Calcium : 8.9 Anion Gap : 11 Assessment and Plan: Comorbidities: ComorbidityOther Code Status: Code StatusFull Code Assessment: Melina is a 45-year-old female patient is alert and oriented x3 presents to emergency department with complaint of nausea and intractable abdominal pain. Patient has a history of sleeve gastrectomy and had a recent follow-up with bariatric surgery via virtual call yesterday morning. Patient states she has been experiencing a several day history of inability to keep down food or fluids. Labs and imaging both unremarkable. Patient medicated for pain, nausea vomiting, IV fluids infusing. Will repeat labs in a.m. Impression 1: Intractable abdominal pain, hiatal hernia Plan for Impression 1: Labs unremarkable/UA unremarkable Imaging unremarkable; see above Morphine/Dilaudid Zofran/Promethazine Lorazepam every 8 hours for anxiety Pantoprazole 40 mg daily NPO>CLD as tolerated Carafate PO Colace twice a day See surgical consult document GI consulted -- EGD with post-op changes but no ulcers Gen surg consult for hiatal hernia -- defer to bariatric surgery CT a/p today unchanged from 05/24 Impression 2: Hx. ADD Plan for Impression 2: Continue Adderall Impression 3: Obesity Plan for Impression 3: s/o gastric bypass Impression 4: DVT PPX Plan for Impression 4: Heparin SCD's Activity as tolerated Electronic Signatures: Jose Ayala () (Signed 23-Jul-2021 22:10) Authored: Service, Subjective Data, Objective Data, Assessment and Plan, Note Completion Last Updated: 23-Jul-2021 22:10 by Jose Ayala () Normal [facility] Daily Progress Note-Surgeryo n 05-29-2021 Daily Progress Note-Surgery Service: Surgery Subjective Data: MELINA DÍAZ is a 45 year old Female who is Hospital Day # 6. Additional Information: Reports mild improvement in her right lower abdominal pain. She is tolerating liquids and would like to try soft diet. No BM reported. No other complaints. Objective Data: Objective Information: T PRBPSpO2 [id number]/7596% Date/Time05/29 16: 16: 16: 16: 16:15 Range(36.2C - 36.6C ) (70 - 83 ) (16 - 18 ) (114 - 136 )/ (57 - 75 ) (96% - 97% ) Pain reported at 05/29 11:23: 9 = Severe Physical Exam Narrative: Physical Exam: Physical Exam: Constitutional: Obese, awake/alert/oriented x3, no distress, alert and cooperative Eyes: EOMI, clear sclera Head/Neck: Neck supple, no apparent injury, No JVD, trachea midline Respiratory/Thorax: good chest expansion, thorax symmetric Cardiovascular: Regular Rate Gastrointestinal: Nondistended, soft, tender to superficial palpation of the RLQ. No rebound tenderness or guarding, no masses palpable. Musculoskeletal: ROM intact, no joint swelling Extremities: normal extremities, no cyanosis edema, contusions or wounds, no clubbing Neurological: alert and oriented x3, intact senses Psychological: Appropriate mood and behavior Skin: Warm and dry, no lesions, no rashes Radiology Results: Results: Impression: 1. No CT evidence of acute intra-abdominal abnormality. 2. Stable appearingintra-abdominal findings since comparison CT 05/24/2021. CT Abdomen and Pelvis with IV Contrast [May 28 2021 8:46PM] Assessment and Plan: Code Status: Code StatusFull Code Assessment: 45 year old female with a distant history of sleeve gastrectomy currently admitted for management of abdominal pain and nausea. Workup including 2 CTs, EGD, and small bowel series does not show an apparent cause for her symptoms. She previously had diarrhea, but is not constipated (notable stool burden seen on CT). Unlikey to be a primary source of her pain, but laxitive treatment would be appropriate. She has had some improvement in her pain and is now tolerating liquids. Based on exam, her pain seems to be more superficial on exam and may be of neuropathic etiology. Impression 1: Abdominal pain Plan for Impression 1: - No clear surgical sources - Would suggest addition of gabapentin for treament of possible neuropathic pain Impression 2: Constipation Plan for Impression 2: - Bowel regimen Impression 3: Weight regain after sleeve gastrectomy Plan for Impression 3: - Will discuss revisional surgery further outpatient Impression 4: DVT PPX Plan for Impression 4: Heparin SCD's Activity as tolerated Attestation: Note Completion: I am a: Resident/Fellow Attending AttestationI saw and evaluated the patient. I personally obtained the frost and critical portions of the history and physical exam or was physically present for frost and critical portions performed by the resident/fellow. I reviewed the resident/fellows documentation and discussed the patient with the resident/fellow. I agree with the resident/fellows medical decision making as documented in the note. I personally evaluated the patient [id number] Comments/ Additional Findings No acute intraabdominal pathology noted on multiple studies. Does have small hiatal hernia but that does not correlate with sxs. pain is mostly right lower abdomen and feels very superficial and not dep in nature. I suspect neuropathic etiology like neuropathy/radiculopathy etc . Discussed it with medical team. No acute bariatric intervention. For GERD, weight regain issues she can follow up as outpatient. I woul suggest trial of gabapentin and may be a pain medicine referral. Electronic Signatures: Brittany Bose) (Signed 30-May-2021 09:07) Authored: Assessment and Plan, Note Completion Co-Signer: Service, Subjective Data, Objective Data, Assessment and Plan, Note Completion Leslie Tony (Fellow)) (Signed 29-May-2021 16:40) Authored: Service, Subjective Data, Objective Data, Assessment and Plan, Note Completion Last Updated: 30-May-2021 09:07 by Brittany Bose) Normal [facility] GI UPPER GI W SBFTon 021 GI UPPER GI W SBFT Patient Name: MELINA DÍAZ STUDY: GI UPPER GI W SBFT; 05/29/2021 3:51 pm INDICATION: Abdominal pain, nausea and vomiting. Assessment for obstruction.. COMPARISON: None. ACCESSION NUMBER(S): [id number] ORDERING CLINICIAN: BRITTANY BOSE TECHNIQUE: Plastic Boat Patcher images were obtained. Multiple fluoroscopic spot esophagram images then were obtained with the patient in an upright LPO projection after administration of an effervescent agent, and thick barium. This was followed by upper GI spot images. Additional esophagram images were obtained with the patient in a prone NICHOLS projection with thin barium. Delayed static images of the abdomen in the posteroanterior projection were obtained at 5, 10, 15, 30, and 45 minute intervals until contrast was observed to reach the colon. Fluoroscopy at the terminal ileum was then obtained. Total fluoroscopy time was 4 minutes 18 seconds. FINDINGS: Plastic Boat Patcher images: Demonstrates residual colonic contrast from the previous day's CT of the abdomen and pelvis. The bowel gas pattern otherwise is unremarkable Esophagus: Swallowing mechanism: Unremarkable, with free flow through the esophagus. Esophageal lumen: Unremarkable without significant dilatation. The esophageal mucosa: Unremarkable without obvious ulceration. GE junction: Small sliding-type hiatal hernia with moderate to marked gastroesophageal reflux to the level of the upper chest. UGI: Stomach: Evaluation is limited due to intraluminal filling defects presumably from recent ingestion or retained debris. The patient was also unable to retain the gas distention from the effervescent agent, and there is diminished gastric volume from bariatric sleeve procedure with poor double contrast coating. Considering this there were no obvious persistent mass or constricting lesions. However, if further evaluation is needed a follow up study or endoscopy would be recommended. Duodenum: Unremarkable. Small bowel: Appears unremarkable without dilatation or obvious mucosal edema. The terminal ileum and cecum: Appear unremarkable without ulceration or mucosal irregularity. Transit time of contrast to the cecum 5.5 hours, somewhat delayed. IMPRESSION: 1. Small hiatal hernia with fairly marked gastroesophageal reflux. 2. Somewhat delayed transit of barium through the small bowel loops reaching the colon by the 5.5 hour exam. 3. Suboptimal evaluation of the stomach as described, otherwise unremarkable. Electronically signed by: VINCENT CASTILLO MD Normal [facility] No Panel Informationon 05-29 Normal [id number] MAC2 303 Work Phone: BASIC METABOLIC PANELon 05-15 Anion gap [Moles/Vol] 11 mmol/L Normal 10 - 20 [facility] Comment on above: Performed By: #### H H #### [address] [address] Calcium [Mass/Vol] 8.9 mg/dL Normal 8.6 - 10.3 [facility] Comment on above: Performed By: #### H H #### [address] [address] Chloride [Moles/Vol] 108 mmol/L High 98 - 107 [facility] Comment on above: Performed By: #### H H #### [address] [address] Creatinine [Mass/Vol] 0.70 mg/dL Normal 0.50 - 1.05 [facility] Comment on above: Performed By: #### H H #### [address] [address] GFR- AM. >60 Normal >60 [facility] Comment on above: Result Comment: CALC ULATIONS OF ESTIMATED GFR ARE PERFORMED USING THE MDRD STUDY EQUATION FOR THE IDMS-TRACEABLE CREATININE METHODS. CLIN CHEM 2007;53:766-72 Performed By: #### H H #### [address] [address] GFR-NON AM. >60 Normal >60 [facility] Comment on above: Performed By: #### H H #### [address] [address] Glucose [Mass/Vol] 83 mg/dL Normal 74 - 99 [facility] Comment on above: Performed By: #### H H #### [address] [address] HCO3 (Bld) [Moles/Vol] 27 mmol/L Normal 21 - 32 [facility] Comment on above: Performed By: #### H H #### [address] [address] Potassium [Moles/Vol] 4.1 mmol/L Normal 3.5 - 5.3 [facility] Comment on above: Performed By: #### H H #### [address] [address] Sodium [Moles/Vol] 142 mmol/L Normal 136 - 145 [facility] Comment on above: Performed By: #### H H #### [facility] [address] [place] [address], [place] [address] Urea nitrogen [Mass/Vol] 7 mg/dL Normal 6 - 23 [facility] Comment on above: Performed By: #### H H #### [address] [place] [address] CBCon 05-28-2021 Erythrocyte distribution width (RBC) [Ratio] 13.8 % Normal 11.5 - 14.5 [facility] Comment on above: Performed By: #### C BCDF #### [address] [place] [address] Hematocrit (Bld) [Volume fraction] 37.1 % Normal 36.0 - 46.0 [facility] Comment on above: Performed By: #### C BCDF #### [address] [address] Hemoglobin (Bld) [Mass/Vol] 11.7 g/dL Low 12.0 - 16.0 [facility] Comment on above: Performed By: #### C BCDF #### [address] [place] [address] MCHC (RBC) [Mass/Vol] 31.5 g/dL Low 32.0 - 36.0 [facility] Comment on above: Performed By: #### C BCDF #### [address] [address] MCV (RBC) [Entitic vol] 90 fL Normal 80 - 100 [facility] Comment on above: Performed By: #### C BCDF #### [address] [place] [address] NUCLEATED RBC 0.0 /100 WBC Normal 0.0 - 0.0 [facility] Comment on above: Performed By: #### C BCDF #### [address] [place] [address] Platelets (Bld) [#/Vol] 218 10*3/uL Normal 150 - 450 [facility] Comment on above: Performed By: #### C BCDF #### [address] [place] [address] RBC 4.13 x10E12/L Normal 4.00 - 5.20 [facility] Comment on above: Performed By: #### C BCDF #### [facility] [address] [place] [address] WBC (Bld) [#/Vol] 4.4 10*3/uL Normal 4.4 - 11.3 [facility] Comment on above: Performed By: #### C BCDF #### [facility] [address] [place] [address] CT ABDOMEN AND PELVIS W IV C ONTRASTon 05-28-2021 CT ABDOMEN AND PELVIS W IV CONTRAST Patient Name: MELNIA DÍAZ STUDY: CT ABDOMEN AND PELVIS W IV CONTRAST; 05/28/2021 7:10 pm INDICATION: continued main right abdomen on the right rectus muscle area.sleeve gastrectomy. neg egd. COMPARISON: CT abdomen pelvis 05/24/2021 ACCESSION NUMBER(S): [id number] ORDERING CLINICIAN: ELMER LINDSAY TECHNIQUE: CT of the abdomen and pelvis was performed. Standard contiguous axial images were obtained at 3 mm slice thickness through the abdomen and pelvis. Coronal and sagittal reconstructions at 3 mm slice thickness were performed. 100 ml of contrast Omnipaque 350 were administered intravenously without immediate complication. Positive oral contrast was administered as well. FINDINGS: LOWER CHEST: No consolidation or effusion. 5 mm pulmonary nodule right middle lobe, stable. ABDOMEN: LIVER: Unchanged. BILE DUCTS: Mild intrahepatic biliary dilatation, nonspecific in the setting of post cholecystectomy. GALLBLADDER: Surgically absent. PANCREAS: Unchanged. SPLEEN: Redemonstration of 11 mm hypodense lesion of the spleen, unchanged. ADRENAL GLANDS: Unremarkable. KIDNEYS AND URETERS: Kidneys appear stable. No hydroureteronephrosis or nephroureterolithiasis is identified. PELVIS: BLADDER: Decompressed. REPRODUCTIVE ORGANS: No pelvic mass seen. BOWEL: Postsurgical changes from sleeve gastrectomy. No pathologic distention of large or small bowel. Minimal scattered colonic diverticulosis without evidence of acute diverticulitis. VESSELS: Atherosclerotic calcifications noted about the aortoiliac axis without evidence of aneurysm. PERITONEUM/RETROPERITONEUM /LYMPH NODES: No ascites or free air, no fluid collection. Subcentimeter mesenteric lymph nodes, nonspecific. No pathologically enlarged mesenteric or retroperitoneal nodes by CT criteria. BONES AND ABDOMINAL WALL: Osseous structures appear stable. Multilevel presumed chronic or degenerative endplate irregularities throughout the imaged spine. IMPRESSION: 1. No CT evidence of acute intra-abdominal abnormality. 2. Stable appearing intra-abdominal findings since comparison CT 05/24/2021. Electronically signed by: ANYI GALARZA MD Normal [facility] CT Abdomen and Pelvis with I V Contraston 05-28-2021 CT Abdomen and Pelvis W contrast IV Normal [facility] MAC2 303 Work Phone: Daily Progress Note-Gastroen terologyon 05-28-2021 Daily Progress Note-Gastroenterology Service: Gastroenterology Subjective Data: MELINA DÍAZ is a 45 year old Female who is Hospital Day # 5. Patient continues to complain of abdominal pain. She also feels nauseated and that she cannot eat anything she is concerned she is developing allergic pimples. On examination obese female in no acute distress she is not tachycardic lungs are clear exam of the abdomen shows mild tenderness in the outer margins of the rectus muscle right across the umbilicus I examined the patient with the lying down as well as with the standing up her belly is very benign. Good bowel sounds are present. Objective Data: Objective Information: T PRBPSpO2 [id number]/6498% Date/Time05/28 13:039 13:039 13:039 13:039 13:03 Range(36.3C - 36.4C ) (68 - 78 ) (18 - 18 ) (113 - 131 )/ (58 - 64 ) (92% - 98% ) Pain reported at 05/28 10:30: 7 = Severe T PRBPSpO2 [id number]/6498% Date/Time05/28 13:039 13:039 13:039 13:039 13:03 Range(36.3C - 36.4C ) (68 - 78 ) (18 - 18 ) (113 - 131 )/ (58 - 64 ) (92% - 98% ) Medication: Medications: Continuous Medications ------ 1. Sodium Chloride 0.9% Infusion: 1000 mL IntraVenous Scheduled Medications ------ 1. Amphetamine - Dextroamphetamine: 20 mg Oral 2 Times a Day 2. Docusate: 100 mg Oral 2 Times a Day 3. Heparin SubCutaneous: 5000 unit(s) SubCutaneous Every 8 Hours 4. Influenza Virus QUADRIVALENT (Inactive) ADULT Vaccine: 0.5 mL IntraMuscular Once 5. Iohexol (Omnipaque 350-Radiology Contrast): 150 mL IntraVenous Push Once 6. Levothyroxine: 50 microgram(s) Oral Daily 7. Pantoprazole Injectable: 40 mg IntraVenous Push Every 12 Hours 8. Sucralfate Oral Liquid: 1 gram(s) Oral 4 Times a Day Before Meals PRN Medications ------ 1. HYDROmorphone Injectable: 0.2 mg IntraVenous Push Every 4 Hours 2. LORazepam Injectable: 1 mg IntraVenous Push Every 8 Hours 3. Promethazine IV Piggy Back: 12.5 mg IntraVenous Piggyback Every 6 Hours Recent Lab Results: Results: CBC: 05/28/2021 07:47 \ Hgb / \ 11.7 L / WBC Plt 4.4 218 / Hct \ / 37.1 \ RBC: 4.13 MCV: 90 BMP: 05/28/2021 07:47 NA+ Cl- BUN / 142 108 H 7 / ------ Glucose - 83 K+ HCO3- Creat \ 4.1 27 0.70 \ Calcium : 8.9 Anion Gap : 11 I have reviewed these laboratory results: Complete Blood Count Trending View [id number] 07:47:00 27-May-2021 07:34:00 White Blood Cell Count4.4 3.6 L Nucleated Erythrocyte Count0.0 0.0 Red Blood Cell Count4.13 3.68 L HGB11.7 L 10.6 L HCT37.1 33.1 L MCV90 90 MCHC31.5 L 32.0 SCC523 191 RDW-CV13.8 13.8 Basic Metabolic Panel 28-May-2021 07:47:00 ResultValue Glucose, Serum 83 NA 142 K 4.1 CL 108 H Bicarbonate, Serum 27 Anion Gap, Serum 11 BUN 7 CREAT 0.70 GFR-Non >60 GFR- >60 Calcium, Serum 8.9 Comprehensive Metabolic Panel 27-May-2021 07:34:00 ResultValue Glucose, Serum 86 NA 143 K 3.8 CL 111 H Bicarbonate, Serum 28 Anion Gap, Serum 8 L BUN 9 CREAT 0.63 GFR-Non >60 GFR- >60 Calcium, Serum 8.4 L ALB 3.2 L ALKP 47 T Pro 5.3 L T Bili 0.5 Alanine Aminotransferase, Serum 24 Aspartate Transaminase, Serum 18 PT + INR, Plasma 27-May-2021 07:34:00 ResultValue Prothrombin Time, Plasma 11.8 International Normalized Ratio, Plasma 1.0 Radiology Results: Results: Impression: No evidence of bowel obstruction or acute appendicitis. Postsurgical change of cholecystectomy. No significant free abdominal or pelvic fluid. CT Abdomen and Pelvis with IV Contrast [May 24 2021 8:38PM] Impression: No acute cardiopulmonary process. Xray Chest 1 View [May 24 2021 6:13PM] Assessment and Plan: Code Status: Code StatusFull Code Assessment: While the exact etiology of the abdominal pains remains unclear; she continues to complain of tenderness in the outer margin of the rectus muscle and I have concerned that what she is having a flare skeletal muscle pain. To be on the certain side we will repeat the CT scan with IV and oral contrast to make certain there is nothing wrong with the small bowel. Her white count remains within normal limits A trial of Toradol might be tried on her. The case was discussed with Dr. Ayala Electronic Signatures: Elmer Lindsay) (Signed 28-May-2021 16:10) Authored: Service, Subjective Data, Objective Data, Assessment and Plan, Note Completion Last Updated: 28-May-2021 16:10 by Elmer Lindsay) [facility] Daily Progress Note-General Internal Medicineon 09-14-2021 Daily Progress Note-General Internal Medicine Service: General Internal Medicine Subjective Data: MELINA DÍAZ is a 45 year old Female who is Hospital Day # 5. Additional Information: Patient requesting ativan, benadryl, and dilaudid together. Also stating she hasn't eaten anything because she does not like what was offered given her limited diet. Objective Data: Objective Information: T PRBPSpO2 [id number]/6498% Date/Time05/28 13: 13: 13: 13: 13:03 Range(36.3C - 36.4C ) (68 - 77 ) (18 - 18 ) (113 - 131 )/ (59 - 64 ) (97% - 98% ) Pain reported at 05/28 21:17: 8 = Severe Physical Exam by System: Constitutional: Well developed, awake/alert/oriented x3, no distress, alert and cooperative Eyes: PERRL, EOMI, clear sclera ENMT: mucous membranes moist, no apparent injury, no lesions seen Head/Neck: Neck supple, no apparent injury, thyroid without mass or tenderness, No JVD, trachea midline, no bruits Respiratory/Thorax: Patent airways, CTAB, normal breath sounds with good chest expansion, thorax symmetric Cardiovascular: Regular, rate and rhythm, no murmurs, 2+ equal pulses of the extremities, normal S 1and S 2 Gastrointestinal: Nondistended, soft, no pain when pushing on abdomen with stethoscope but reports pain to very light touch when palpated Musculoskeletal: ROM intact, no joint swelling, normal strength Extremities: normal extremities, no cyanosis edema, contusions or wounds, no clubbing Neurological: alert and oriented x3, intact senses, motor, response and reflexes, normal strength Lymphatic: No significant lymphadenopathy Psychological: Appropriate mood and behavior Skin: Warm and dry, no lesions, no rashes; loose skin Recent Lab Results: Results: CBC: 05/28/2021 07:47 \ Hgb / \ 11.7 L / WBC Plt 4.4 218 / Hct \ / 37.1 \ RBC: 4.13 MCV: 90 BMP: 05/28/2021 07:47 NA+ Cl- BUN / 142 108 H 7 / ------ Glucose - 83 K+ HCO3- Creat \ 4.1 27 0.70 \ Calcium : 8.9 Anion Gap : 11 Assessment and Plan: Comorbidities: ComorbidityOther Code Status: Code StatusFull Code Assessment: Melina is a 45-year-old female patient is alert and oriented x3 presents to emergency department with complaint of nausea and intractable abdominal pain. Patient has a history of sleeve gastrectomy and had a recent follow-up with bariatric surgery via virtual call yesterday morning. Patient states she has been experiencing a several day history of inability to keep down food or fluids. Labs and imaging both unremarkable. Patient medicated for pain, nausea vomiting, IV fluids infusing. Will repeat labs in a.m. Impression 1: Intractable abdominal pain, hiatal hernia Plan for Impression 1: Labs unremarkable/UA unremarkable Imaging unremarkable; see above Morphine/Dilaudid Zofran/Promethazine Lorazepam every 8 hours for anxiety Pantoprazole 40 mg daily NPO>CLD as tolerated Carafate PO Colace twice a day See surgical consult document GI consulted -- EGD with post-op changes but no ulcers Gen surg consult for hiatal hernia -- defer to bariatric surgery CT a/p today unchanged from 05/24 Impression 2: Hx. ADD Plan for Impression 2: Continue Adderall Impression 3: Obesity Plan for Impression 3: s/o gastric bypass Impression 4: DVT PPX Plan for Impression 4: Heparin SCD's Activity as tolerated Electronic Signatures: Jose Ayala () (Signed 28-May-2021 21:30) Authored: Service, Subjective Data, Objective Data, Assessment and Plan, Note Completion Last Updated: 28-May-2021 21:30 by Jose Ayala () Normal [facility] Daily Progress Note-General Internal Medicine Service: General Internal Medicine Subjective Data: MELINA DÍAZ is a 45 year old Female who is Hospital Day # 4. Additional Information: EGD negative. Patient c/o pain despite dilaudid and requests more pain medication Objective Data: Objective Information: T PRBPSpO2 [id number]/5892% Date/Time05/27 20: 20: 4:179: 20:26 Range(36.4C - 37.1C ) (64 - 87 ) (18 - 18 ) (120 - 140 )/ (58 - 82 ) (92% - 96% ) Highest temp of 37.1 C was recorded at 05/27 14:16 Pain reported at 05/27 18:56: 9 = Severe Physical Exam by System: Constitutional: Well developed, awake/alert/oriented x3, no distress, alert and cooperative Eyes: PERRL, EOMI, clear sclera ENMT: mucous membranes moist, no apparent injury, no lesions seen Head/Neck: Neck supple, no apparent injury, thyroid without mass or tenderness, No JVD, trachea midline, no bruits Respiratory/Thorax: Patent airways, CTAB, normal breath sounds with good chest expansion, thorax symmetric Cardiovascular: Regular, rate and rhythm, no murmurs, 2+ equal pulses of the extremities, normal S 1and S 2 Gastrointestinal: Nondistended, soft, no pain when pushing on abdomen with stethoscope but reports pain to very light touch when palpated Musculoskeletal: ROM intact, no joint swelling, normal strength Extremities: normal extremities, no cyanosis edema, contusions or wounds, no clubbing Neurological: alert and oriented x3, intact senses, motor, response and reflexes, normal strength Lymphatic: No significant lymphadenopathy Psychological: Appropriate mood and behavior Skin: Warm and dry, no lesions, no rashes; loose skin Recent Lab Results: Results: CBC: 05/27/2021 07:34 \ Hgb / \ 10.6 L / WBC Plt 3.6 L 191 / Hct \ / 33.1 L \ RBC: 3.68 L MCV: 90 CMP: 05/27/2021 07:34 NA+ Cl- BUN / 143 111 H / ------ Glucose - 86 K+ HCO3- Creat \ 3.8 28 0.63 \ \ T Bili / \ 0.5 / AST x ---- x ALT 18 x ---- x 24 / Alk P \ / 47 \ Calcium : 8.4 L Anion Gap : 8 L Albumin : 3.2 L T Protein : 5.3 L Coagulation: 05/27/2021 07:34 PT / 11.8 / -------< INR < 1.0 PTT\ \ Assessment and Plan: Comorbidities: ComorbidityOther Code Status: Code StatusFull Code Assessment: Melina is a 45-year-old female patient is alert and oriented x3 presents to emergency department with complaint of nausea and intractable abdominal pain. Patient has a history of sleeve gastrectomy and had a recent follow-up with bariatric surgery via virtual call yesterday morning. Patient states she has been experiencing a several day history of inability to keep down food or fluids. Labs and imaging both unremarkable. Patient medicated for pain, nausea vomiting, IV fluids infusing. Will repeat labs in a.m. Impression 1: Intractable abdominal pain, hiatal hernia Plan for Impression 1: Labs unremarkable/UA unremarkable Imaging unremarkable; see above Morphine/Dilaudid Zofran/Promethazine Lorazepam every 8 hours for anxiety Pantoprazole 40 mg daily NPO>CLD as tolerated Carafate PO Colace twice a day See surgical consult document GI consulted -- EGD with post-op changes but no ulcers Gen surg consult for hiatal hernia Impression 2: Hx. ADD Plan for Impression 2: Continue Adderall Impression 3: Obesity Plan for Impression 3: s/o gastric bypass Impression 4: DVT PPX Plan for Impression 4: Heparin SCD's Activity as tolerated Electronic Signatures: Jose Ayala () (Signed 27-May-2021 22:57) Authored: Service, Subjective Data, Objective Data, Assessment and Plan, Note Completion Last Updated: 27-May-2021 22:57 by Jose Ayala () Normal [facility] Laboratory - Chemistry and C hemistry - challengeon 05-28-2021 Anion gap [Moles/Vol] 11 mmol/L 10 - 20 MG- Surgery-Pa rma [id number] Work Phone: Calcium [Mass/Vol] 8.9 mg/dL 8.6 - 10.3 MG-Amrit taye-Pa rma [id number] 303 Work Phone: Chloride [Moles/Vol] 108 mmol/L above high threshold 98 - 107 QE-Ysijtek-Rt rma MAC2 303 Work Phone: CO2 [Moles/Vol] 27 mmol/L 21 - 32 MG-Surger y-Pa rma [id number] 303 Work Phone: Creatinine [Mass/Vol] 0.70 mg/dL See Below MG- Surgery-Pa rma [id number] 303 Work Phone: Comment on above: Reference Range: 0.5 0 - 1.05 Glucose [Mass/Vol] 83 mg/dL 74 - 99 MG-Amrit taye-Pa rma MAC2 303 Work Phone: Potassium [Moles/Vol] 4.1 mmol/L 3.5 - 5.3 MG- Surgery-Pa rma MAC2 303 Work Phone: Sodium [Moles/Vol] 142 mmol/L 136 - 145 MG-Amrit taye-Pa rma MAC2 303 Work Phone: Urea nitrogen [Mass/Vol] 7 mg/dL 6 - 23 PO-Gxranww-Zf rma MAC2 303 Work Phone: Laboratory - Hematology and Cell countson 05-28-2021 Erythrocyte distribution width (RBC) [Ratio] 13.8 % See Below XK-Ehrwxwj-Xl rma MAC2 303 Work Phone: Comment on above: Reference Range: 11. 5 - 14.5 Hematocrit (Bld) [Volume fraction] 37.1 % See Below EU-Xviyjmh-Vi rma [id number] 303 Work Phone: Comment on above: Reference Range: 36. 0 - 46.0 Hemoglobin (Bld) [Mass/Vol] 11.7 g/dL below low threshold See Below VO-Kgsixmb-Sx rma MAC2 303 Work Phone: Comment on above: Reference Range: 12. 0 - 16.0 MCHC (RBC) [Mass/Vol] 31.5 g/dL below low threshold See Below IQ-Xsjlzda-Vj rma MAC2 303 Work Phone: Comment on above: Reference Range: 32. 0 - 36.0 MCV (RBC) [Entitic vol] 90 fL 80 - 100 HC-Eodbjnc-Nr rma MAC2 303 Work Phone: Platelets (Bld) [#/Vol] 218 10*3/uL 150 - 450 NM-Zedthdd-Ma rma [id number] 303 Work Phone: RBC (Bld) [#/Vol] 4.13 {x10E12/L} See Below MG -Surgery-Pa rma [id number] 303 Work Phone: Comment on above: Reference Range: 4.0 0 - 5.20 WBC (Bld) [#/Vol] 4.4 10*3/uL 4.4 - 11.3 MG-Amrit taye-Pa rma MAC2 303 Work Phone: No Panel Informationon 05-28 >60 >60 YE-Dxxdmbp-Bw rma [id number] 303 Work Phone: Comment on above: CALCULATIONS OF RANDY MATED GFR ARE PERFORMED USING THE MDRD STUDY EQUATION FOR THE IDMS-TRACEABLE CREATININE METHODS. CLIN CHEM 2007;53:766-72 0.0 {/100_WBC} 0.0 - 0.0 MG-Surgery -Pa rma [id number] 303 Work Phone: CBCon 05-27-2021 Erythrocyte distribution width (RBC) [Ratio] 13.8 % Normal 11.5 - 14.5 [facility] Comment on above: Performed By: #### H H #### [facility] [address] [place] [address] Hematocrit (Bld) [Volume fraction] 33.1 % Low 36.0 - 46.0 [facility] Comment on above: Performed By: #### H H #### [facility] [address] [place] [address] Hemoglobin (Bld) [Mass/Vol] 10.6 g/dL Low 12.0 - 16.0 [facility] Comment on above: Performed By: #### H H #### [address] [address] MCHC (RBC) [Mass/Vol] 32.0 g/dL Normal 32.0 - 36.0 [facility] Comment on above: Performed By: #### H H #### [address] [address] MCV (RBC) [Entitic vol] 90 fL Normal 80 - 100 [facility] Comment on above: Performed By: #### H H #### [facility] [address] [place] [address], [place] [address] NUCLEATED RBC 0.0 /100 WBC Normal 0.0 - 0.0 [facility] Comment on above: Performed By: #### H H #### [address] [address] Platelets (Bld) [#/Vol] 191 10*3/uL Normal 150 - 450 [facility] Comment on above: Performed By: #### H H #### [facility] [address] [place] [address], [place] [address] RBC 3.68 x10E12/L Low 4.00 - 5.20 [facility] Comment on above: Performed By: #### H H #### [address] [address] WBC (Bld) [#/Vol] 3.6 10*3/uL Low 4.4 - 11.3 [facility] Comment on above: Performed By: #### H H #### [address] [place] [address] COMPREHENSIVE PANELon 2020 Albumin [Mass/Vol] 3.2 g/dL Low 3.4 - 5.0 [facility] Comment on above: Performed By: #### C MP ####[facility] [place] [address] ALP [Catalytic activity/Vol] 47 U/L Normal 33 - 110 [facility] Comment on above: Performed By: #### C MP ####[facility] [place] [address] ALT [Catalytic activity/Vol] 24 U/L Normal 7 - 45 [facility] Comment on above: Result Comment: Donita ents treated with Sulfasalazine may generate falsely decreased results for ALT. Performed By: #### C MP ####[address] [address] Anion gap [Moles/Vol] 8 mmol/L Low 10 - 20 [facility] Comment on above: Performed By: #### C MP ####[address] [address] AST [Catalytic activity/Vol] 18 U/L Normal 9 - 39 [facility] Comment on above: Performed By: #### C MP ####[address] [place] [address] Bilirubin [Mass/Vol] 0.5 mg/dL Normal 0.0 - 1.2 [facility] Comment on above: Performed By: #### C MP ####[address] [address] Calcium [Mass/Vol] 8.4 mg/dL Low 8.6 - 10.3 [facility] Comment on above: Performed By: #### C MP ####[address] [place] [address] Chloride [Moles/Vol] 111 mmol/L High 98 - 107 [facility] Comment on above: Performed By: #### C MP ####[address] [address] Creatinine [Mass/Vol] 0.63 mg/dL Normal 0.50 - 1.05 [facility] Comment on above: Performed By: #### C MP ####[address] [place] [address] GFR- AM. >60 Normal >60 [facility] Comment on above: Result Comment: CALC ULATIONS OF ESTIMATED GFR ARE PERFORMED USING THE MDRD STUDY EQUATION FOR THE IDMS-TRACEABLE CREATININE METHODS. CLIN CHEM 2007;53:766-72 Performed By: #### C MP ####[address] [address] GFR-NON AM. >60 Normal >60 [facility] Comment on above: Performed By: #### C MP ####[facility] [place] [address] Glucose [Mass/Vol] 86 mg/dL Normal 74 - 99 [facility] Comment on above: Performed By: #### C MP ####[address] [place] [address] HCO3 (Bld) [Moles/Vol] 28 mmol/L Normal 21 - 32 [facility] Comment on above: Performed By: #### C MP ####[address] [place] [address] Potassium [Moles/Vol] 3.8 mmol/L Normal 3.5 - 5.3 [facility] Comment on above: Performed By: #### C MP ####[place] [address] [place] [address] Protein [Mass/Vol] 5.3 g/dL Low 6.4 - 8.2 [facility] Comment on above: Performed By: #### C MP ####[facility] [place] [address], [place] [address] Sodium [Moles/Vol] 143 mmol/L Normal 136 - 145 [facility] Comment on above: Performed By: #### C MP ####[address] [place] [address] Urea nitrogen [Mass/Vol] 9 mg/dL Normal 6 - 23 [facility] Comment on above: Performed By: #### C MP ####[facility] [place] [address], [place] [address] Daily Progress Note-General Internal Medicineon 05-27-2021 Daily Progress Note-General Internal Medicine Service: General Internal Medicine Subjective Data: MELINA DÍAZ is a 45 year old Female who is Hospital Day # 3. Additional Information: Patient c/o pain despite dilaudid. Requested IV benadryl and nubain. Discussed that this is not a good idea. Objective Data: Objective Information: T PRBPSpO2 [id number]/6295% Date/Time05/26 21:159 21: 21:159 21:159 21:15 Range(35.5C - 37.1C ) (74 - 98 ) (18 - 20 ) (120 - 138 )/ (56 - 80 ) (93% - 97% ) Highest temp of 37.1 C was recorded at 05/26 21:15 Pain reported at 05/26 19:00: 8 = Severe Physical Exam by System: Constitutional: Well developed, awake/alert/oriented x3, no distress, alert and cooperative Eyes: PERRL, EOMI, clear sclera ENMT: mucous membranes moist, no apparent injury, no lesions seen Head/Neck: Neck supple, no apparent injury, thyroid without mass or tenderness, No JVD, trachea midline, no bruits Respiratory/Thorax: Patent airways, CTAB, normal breath sounds with good chest expansion, thorax symmetric Cardiovascular: Regular, rate and rhythm, no murmurs, 2+ equal pulses of the extremities, normal S 1and S 2 Gastrointestinal: Nondistended, soft, non-tender, no rebound tenderness or guarding, no masses palpable, no organomegaly, +BS, no bruits Musculoskeletal: ROM intact, no joint swelling, normal strength Extremities: normal extremities, no cyanosis edema, contusions or wounds, no clubbing Neurological: alert and oriented x3, intact senses, motor, response and reflexes, normal strength Lymphatic: No significant lymphadenopathy Psychological: Appropriate mood and behavior Skin: Warm and dry, no lesions, no rashes; loose skin Medication: Medications: Continuous Medications ------ 1. Sodium Chloride 0.9% Infusion: 1000 mL IntraVenous Scheduled Medications ------ 1. Amphetamine - Dextroamphetamine: 20 mg Oral 2 Times a Day 2. Docusate: 100 mg Oral 2 Times a Day 3. Heparin SubCutaneous: 5000 unit(s) SubCutaneous Every 8 Hours 4. Influenza Virus QUADRIVALENT (Inactive) ADULT Vaccine: 0.5 mL IntraMuscular Once 5. Levothyroxine: 50 microgram(s) Oral Daily 6. Pantoprazole Injectable: 40 mg IntraVenous Push Every 12 Hours 7. Sucralfate Oral Liquid: 1 gram(s) Oral 4 Times a Day Before Meals PRN Medications ------ 1. diphenhydrAMINE Injectable: 25 mg IntraVenous Push Every 8 Hours 2. HYDROmorphone Injectable: 0.3 mg IntraVenous Push Every 4 Hours 3. LORazepam Injectable: 1 mg IntraVenous Push Every 8 Hours 4. Promethazine IV Piggy Back: 12.5 mg IntraVenous Piggyback Every 6 Hours Recent Lab Results: Results: CBC: 05/25/2021 08:04 \ Hgb / \ 10.5 L / WBC Plt 4.0 L 186 / Hct \ / 33.1 L \ RBC: 3.68 L MCV: 90 Neutrophil %: 46.3 BMP: 05/25/2021 08:04 NA+ Cl- BUN / 142 113 H 8 / ------ Glucose - 69 L K+ HCO3- Creat \ 3.4 L 25 0.53 \ Calcium : 6.9 L Anion Gap : 7 L CMP: 05/24/2021 18:12 NA+ Cl- BUN / 140 103 14 / ------ Glucose - 84 K+ HCO3- Creat \ 4.1 30 0.68 \ \ T Bili / \ 0.4 / AST x ---- x ALT 32 x ---- x 39 / Alk P \ / 61 \ Calcium : 9.3 Anion Gap : 11 Albumin : 4.2 T Protein : 6.8 Assessment and Plan: Comorbidities: ComorbidityOther Code Status: Code StatusFull Code Assessment: Melina is a 45-year-old female patient is alert and oriented x3 presents to emergency department with complaint of nausea and intractable abdominal pain. Patient has a history of sleeve gastrectomy and had a recent follow-up with bariatric surgery via virtual call yesterday morning. Patient states she has been experiencing a several day history of inability to keep down food or fluids. Labs and imaging both unremarkable. Patient medicated for pain, nausea vomiting, IV fluids infusing. Will repeat labs in a.m. Impression 1: Intractable abdominal pain, PUD Plan for Impression 1: Labs unremarkable/UA unremarkable Imaging unremarkable; see above Morphine/Dilaudid Zofran/Promethazine Lorazepam every 8 hours for anxiety Pantoprazole 40 mg daily NPO>CLD as tolerated Carafate PO Colace twice a day See surgical consult document GI consulted -- EGD tomorrow Impression 2: Hx. ADD Plan for Impression 2: Continue Adderall Impression 3: Obesity Plan for Impression 3: s/o gastric bypass Impression 4: DVT PPX Plan for Impression 4: Heparin SCD's Activity as tolerated Electronic Signatures: Jose Ayala () (Signed 27-May-2021 10:05) Authored: Service, Subjective Data, Objective Data, Assessment and Plan, Note Completion Last Updated: 27-May-2021 10:05 by Jose Ayala () Normal [facility] Laboratory - Chemistry and C hemistry - challengeon 05-27-2021 Albumin BCP dye [Mass/Vol] 3.2 g/dL below low threshold 3.4 - 5.0 LJ-Nkfgucy-Oh rma [id number] Work Phone: ALP [Catalytic activity/Vol] 47 U/L 33 - 110 RE-Nkvnruf-Qr rma MAC2 303 Work Phone: ALT With P-5'-P [Catalytic activity/Vol] 24 U/L 7 - 45 BQ-Ylubdrc-Je rma MAC2 303 Work Phone: Comment on above: Patients treated wit h Sulfasalazine may generate falsely decreased results for ALT. Anion gap [Moles/Vol] 8 mmol/L below low threshold 10 - 20 MI-Rflxomc-Dj rma MAC2 303 Work Phone: AST With P-5'-P [Catalytic activity/Vol] 18 U/L 9 - 39 GW-Piagdxi-Zc rma MAC2 303 Work Phone: Bilirubin [Mass/Vol] 0.5 mg/dL 0.0 - 1.2 MG-S urgery-Pa rma [id number] Work Phone: Calcium [Mass/Vol] 8.4 mg/dL below low threshold 8.6 - 10.3 QQ-Bxfabjn-Sy rma [id number] Work Phone: Chloride [Moles/Vol] 111 mmol/L above high threshold 98 - 107 PP-Bgoygcz-Gb rma [id number] Work Phone: CO2 [Moles/Vol] 28 mmol/L 21 - 32 MG-Surger y-Pa rma [id number] Work Phone: Creatinine [Mass/Vol] 0.63 mg/dL See Below MG- Surgery-Pa rma [id number] Work Phone: Comment on above: Reference Range: 0.5 0 - 1.05 Glucose [Mass/Vol] 86 mg/dL 74 - 99 MG-Amrit taye-Pa rma [id number] Work Phone: Potassium [Moles/Vol] 3.8 mmol/L 3.5 - 5.3 MG- Surgery-Pa rma [id number] Work Phone: Protein [Mass/Vol] 5.3 g/dL below low threshold 6.4 - 8.2 AC-Hlbjoix-St rma [id number] Work Phone: Sodium [Moles/Vol] 143 mmol/L 136 - 145 MG-Amrit taye-Pa rma [id number] Work Phone: Urea nitrogen [Mass/Vol] 9 mg/dL 6 - 23 HY-Gvbozgf-Sj rma [id number] Work Phone: Laboratory - Coagulationon 0 - INR Coag (PPP) [Relative time] 1.0 {INR} 0.9 - 1.1 EF-Ggbilaj-Ww rma [id number] Work Phone: PT Coag (PPP) [Time] 11.8 s See Below MG-S urgery-Pa rma [id number] Work Phone: Comment on above: Reference Range: 10. 1 - 13.3 Laboratory - Hematology and Cell countson 05-27-2021 Erythrocyte distribution width (RBC) [Ratio] 13.8 % See Below VB-Wthcknr-Ba rma [facility]2 303 Work Phone: Comment on above: Reference Range: 11. 5 - 14.5 Hematocrit (Bld) [Volume fraction] 33.1 % below low threshold See Below PR-Nameavt-Bn rma [facility]2 303 Work Phone: Comment on above: Reference Range: 36. 0 - 46.0 Hemoglobin (Bld) [Mass/Vol] 10.6 g/dL below low threshold See Below SI-Eyojadm-Lq rma [facility]2 303 Work Phone: Comment on above: Reference Range: 12. 0 - 16.0 MCHC (RBC) [Mass/Vol] 32.0 g/dL See Below MG- Surgery-Pa rma MAC2 303 Work Phone: Comment on above: Reference Range: 32. 0 - 36.0 MCV (RBC) [Entitic vol] 90 fL 80 - 100 PY-Tafprsp-Fm rma MAC2 303 Work Phone: Platelets (Bld) [#/Vol] 191 10*3/uL 150 - 450 FR-Axbzkht-Cv rma MAC2 303 Work Phone: RBC (Bld) [#/Vol] 3.68 {x10E12/L} below low threshold See Below FN-Dizdiue-Ms rma MAC2 303 Work Phone: Comment on above: Reference Range: 4.0 0 - 5.20 WBC (Bld) [#/Vol] 3.6 10*3/uL below low threshold 4.4 - 11.3 EX-Euejhqm-Rx rma MAC2 303 Work Phone: No Panel Informationon 05-27 LR-Kjwltcl-Dd rma MAC2 303 Work Phone: [email or web address] WZ-Rcopmvg-Su rma MAC2 303 Work Phone: 0.0 {/100_WBC} 0.0 - 0.0 MG-Surgery -Pa rma MAC2 303 Work Phone: >60 >60 TN-Rhthnvx-Cv rma MAC2 303 Work Phone: Comment on above: CALCULATIONS OF RANDY MATED GFR ARE PERFORMED USING THE MDRD STUDY EQUATION FOR THE IDMS-TRACEABLE CREATININE METHODS. CLIN CHEM 2007;53:766-72 PT/INRon 05-27-2021 PT Coag (PPP) [Time] 11.8 s Normal 10.1 - 13.3 [facility] Comment on above: Performed By: #### P TINR ####[facility] [place] [id number] PT, INR 1.0 Normal 0.9 - 1.1 [facility] Comment on above: Performed By: #### P TINR ####[facility] [place] [address] Admission Risk Screen - Adul ton 05-25-2021 Admission Risk Screen - Adult Allergies: Allergies: NKDA: Tape - Adhesive, Bandaids, Paper: Other Aspartame: Other Intolerances: Nexium: Unknown Patient Verification: New W ID Band Applied in my Departmentyes Patient Identity Verified Bypatient ID Band FULL Name, include Middle, spelling matches patient's ID used for verificationyes ID Band Matches Patient ID used for Verficationyes ID Band MRN Matches EMR MRNyes Visitor Restriction: Coronavirus Visitor Restriction: Reasonable restrictions to in-person visitors will be observed due to current coronavirus pandemic. Travel History: COVID-19 Screening Completedno exposure or symptoms Travel or Exposure Past 30 DaysNO travel to International locations in the past 30 days Ebola AlertFor Ebola-like Symptoms: Isolate Patient and Notify Provider/Completion Engineer For Contact: Notify Provider/Completion Engineer Advance Directive: Advance Directive/DNRno Advance Directive Information Givenpatient/family declined [place]arez Fall Screen: History of falling (immediate or previous)no (0) Secondary Diagnosisno (0) Intravenous Therapy/ Heparin/Saline Lockyes (20) Gait/Transferringnormal/be drest/wheelchair (0) Ambulatory Aidsnone/bedrest/nurse assist (0) Mental Statusoriented to own ability (0) Score: Low risk (<25). Moderate risk (25-44). High risk (>44).20 Suarez InterventionsLOW INTERVENTIONS: *patient oriented to surroundings and call system, * patient/family falls education completed and documented, *patients fall status communicated during bedside handoff, *whiteboard updated, *mode of toileting discussed with patient, *bed in low position with brakes locked, *call light in reach, * non-skid footwear Family Violence Screen: Are you or have you been threatened or abused physically, emotionally, or sexually by anyoneno Do you feel UNSAFE going back to the place where you are livingno Clinical assessment: Are there any apparent signs of injuries/behaviors that could be related to abuse/neglectno Social Service Consult for abuse/neglect needed this visitno Functional Screen: Functional Screen: In the recent/past 2-4 weeks, patient or family have noticedno issues that require a speech/language consult at this time AM-PAC- Basic Mobility/Daily Activity: Patient baseline bedboundno Turning from your back to your side while in a flat bed without using bedrailsnone Moving from lying on your back to sitting on the side of a flat bed without using bedrailsnone Moving to and from bed to chair (including a wheelchair)none Standing up from a chair using your arms (e.g. wheelchair or bedside chair) none To walk in hospital roomnone Climbing 3-5 steps with railingnone Basic Mobility - Total Score24 Putting on and taking off regular lower body clothingnone Bathing (including washing, rinsing, drying)none Putting on and taking off regular upper body clothingnone Toileting, which includes using toilet, bedpan or urinalnone Taking care of personal grooming such as brushing teethnone Eating Mealsnone Daily Activity - Total Score24 Learning Assessment (Patient): Patient is Able to be Assessed for Learningyes Factors Influencing Readiness to Learnnone Factors that Impact Ability to Learnnone Devices/Methods Used to Communicatenone Learning Preferencesverbal instruction Cultural Considerationsnone Developmental Considerationsnone Anabaptist Considerationsnone Learning Assessment (Other Learner): Other learner availableno Depression Screen: During the past month, have you often been bothered by feeling down, depressed or hopelessno During the past month, have you often had little interest or pleasure in doing thingsno Have you had any thoughts of harming anyone elseno (1) [place] Suicide: Risk Screen Not Applicable/Able to Answerable to be screened In the Past Month: Have you wished you were or could go to sleep and not wake upno(1) In the Past Month: Have you had any actual thoughts of killing yourself no(1) Lifetime: Have you ever done, started to do, or prepared to do anything to end your lifeno [place] Suicide Risknegative Adult Nutrition Screen: Have you recently lost weight without tryingno Have you been eating poorly because of a decreased appetiteyes Malnutrition Screening Tool Score1 Malnutrition Screening Tool RiskMST = 0 or 1 Not at risk. Eating well with little or no weight loss Nutrition Consult needed this visitno Can Patient Participate in Room Serviceyes Patient requires Paper Dishes/Plastic Utensilsno Pain Screen: Pain Scalenumerical 0-10 Pain Scale Educationteaching provided Current Pain Level8 = Severe Acceptable Pain Level0 = None Expression of Pain (nonverbal)verbalization Chronic Painno Spiritual Screen: Are there any cultural, spiritual, sabianist practices/values/needs that are important for us to knowno CAGE: (more content not included)... Normal [facility] BASIC METABOLIC PANELon 05-15 Anion gap [Moles/Vol] 7 mmol/L Low 10 - 20 [facility] Comment on above: Performed By: #### B MP ####[facility] [place] [address] Calcium [Mass/Vol] 6.9 mg/dL Low 8.6 - 10.3 [facility] Comment on above: Performed By: #### B MP ####[facility] [place] [address] Chloride [Moles/Vol] 113 mmol/L High 98 - 107 [facility] Comment on above: Performed By: #### B MP ####[facility] [place] [address] Creatinine [Mass/Vol] 0.53 mg/dL Normal 0.50 - 1.05 [facility] Comment on above: Performed By: #### B MP ####[facility] [place] [address], [place] [address] GFR- AM. >60 Normal >60 [facility] Comment on above: Result Comment: CALC ULATIONS OF ESTIMATED GFR ARE PERFORMED USING THE MDRD STUDY EQUATION FOR THE IDMS-TRACEABLE CREATININE METHODS. CLIN CHEM 2007;53:766-72 Performed By: #### B MP ####[facility] [place], [place] [address], [place] [address] GFR-NON AM. >60 Normal >60 [facility] Comment on above: Performed By: #### B MP ####[facility] [place] [address], [place] [address] Glucose [Mass/Vol] 69 mg/dL Low 74 - 99 [facility] Comment on above: Performed By: #### B MP ####[facility] [place] [address], [place] [address] HCO3 (Bld) [Moles/Vol] 25 mmol/L Normal 21 - 32 [facility] Comment on above: Performed By: #### B MP ####[facility] [place] [address], [place] [address] Potassium [Moles/Vol] 3.4 mmol/L Low 3.5 - 5.3 [facility] Comment on above: Performed By: #### B MP ####[facility] [place] [address], [place] [address] Sodium [Moles/Vol] 142 mmol/L Normal 136 - 145 [facility] Comment on above: Performed By: #### B MP ####[facility] [place] [address], [place] [address] Urea nitrogen [Mass/Vol] 8 mg/dL Normal 6 - 23 [facility] Comment on above: Performed By: #### B MP ####[facility] [place] [address], [place] [address] CBCon 05-25-2021 Erythrocyte distribution width (RBC) [Ratio] 13.7 % Normal 11.5 - 14.5 [facility] Comment on above: Performed By: #### C BC #### [facility] [address] [place] [address] Hematocrit (Bld) [Volume fraction] 33.1 % Low 36.0 - 46.0 [facility] Comment on above: Performed By: #### C BC #### [address] [address] Hemoglobin (Bld) [Mass/Vol] 10.5 g/dL Low 12.0 - 16.0 [facility] Comment on above: Performed By: #### C BC #### [address] [address] MCHC (RBC) [Mass/Vol] 31.7 g/dL Low 32.0 - 36.0 [facility] Comment on above: Performed By: #### C BC #### [address] [address] MCV (RBC) [Entitic vol] 90 fL Normal 80 - 100 [facility] Comment on above: Performed By: #### C BC #### [address] [address] NUCLEATED RBC 0.0 /100 WBC Normal 0.0 - 0.0 [facility] Comment on above: Performed By: #### C BC #### [address] [address] Platelets (Bld) [#/Vol] 186 10*3/uL Normal 150 - 450 [facility] Comment on above: Performed By: #### C BC #### [address] [address] RBC 3.68 x10E12/L Low 4.00 - 5.20 [facility] Comment on above: Performed By: #### C BC #### [address] [address] WBC (Bld) [#/Vol] 4.0 10*3/uL Low 4.4 - 11.3 [facility] Comment on above: Performed By: #### C BC #### [address] [address] CORONAVIRUS 2019, SCREEN ASY MPTOMATICon 05-25-2021 SARS-CoV-2 (COVID-19) RNA MEAGAN+probe Ql (Unsp spec) Not detected Normal Not Detected [facility] Comment on above: Result Comment: . This test has received FDA Emergency Use Authorization (EUA) and has been verified by [facility]. This test is only authorized for the duration of time that circumstances exist to justify the authorization of the emergency use of in vitro diagnostic tests for the detection of SARS-CoV-2 virus and/or diagnosis of COVID-19 infection under section 564(b)(1) of the Act, 21 U.S.C. 360bbb-3(b)(1), unless the authorization is terminated or revoked sooner. [facility] is certified under CLIA-88 as qualified to perform high complexity testing. Testing is performed in the [facility] laboratory located at [address] [place] [address]. SARS-CoV-2/Flu/RSV Multiplex Test: Fact sheet for providers: https://www.fda.gov/media/248463/download Fact sheet for patients: https://www.fda.gov/media/130134/download Performed By: #### C OVSC ####[place] [address] Lab Specimen Source Nasal, Nasopharyngeal Normal [facility] Comment on above: Performed By: #### C OVSC ####[place] [address] Consult-Gastroenterologyon 0 05-25-2021 Consult-Gastroenterol khai Service: Service: Gastroenterology Consult: Consult requested by (Attending Name): Jose Ayala Reason: abdominal pain, recently diagnosed with PUD History of Present Illness: HPI: MELINA DÍAZ is a 45 year old female with past medical history significant for sleeve gastrectomy, obesity who presents to emergency department with complaint of abdominal pain. Patient states that for the last several days she has been unable to keep down anything to eat or drink. Patient had a virtual visit with the bariatric surgeon for follow-up of her sleeve gastrectomy which was completed in approximately 2011. In ER patient was evaluated by surgery and recommendations placed. Upon examination, patient has alert and nontoxic looking. Patient denies chest pain, dizziness, shortness of breath, fever, recent illness. In ER, labs were completed and are unremarkable, CT of the abdomen and pelvis completed and negative except for a small hiatal hernia. Urinalysis completed and is negative. Blood pressure is 132/75, heart rate 73, respirations 20, temperature 37.4 C, SPO2 97% on room air. Patient has a negative physical exam, requesting multiple doses of pain medications. Observation admission to Dr. Jose Ayala who will continue to follow patient. GI consult for abdominal pain. Patient is seen and examined at the bedside. She appears to sit comfortably in bed, in mild distress due to significant pain. Reports gastric sleeve surgery about 8 years ago, unable to recall DrZarina Last name, partner of Dr. Bose. Complains of sharp constant severe abdominal pain, nausea and vomiting, inability to eat. Denies any previous history of gastric ulcers, but he had adhesions after surgery . Last 2 days she has loose stool, unable to quantify. Denies any previous history of EGD or colonoscopy. H&H today 11.8, white blood cells 4.0. LFTs unremarkable. CT of abdomen and pelvis as above. PMH: as above. PSH: Sleeve gastrectomy, cholecystectomy, hysterectomy, x3, Social Hx.: Never smoker, no drug use, no alcohol use Family Hx.: Reviewed and not pertinent to presenting complaint A 10 point review of system is negative except for what is mentioned in the HPI Vital Signs: Reviewed Physical Exam: General: mild distress due to pain Skin: Warm and dry HEENT: Normocephalic, atraumatic Neck: atraumatic Chest: Clear to auscultation bilaterally. No wheezes, rales, or rhonchi. CV: Regular rate and rhythm. Positive S1/S2. Abdomen: no distension, +BS, soft, tender to palpation in periumbilical and epigastric areas, no rebound tenderness, no guarding, no rigidity, no discernable ascites Extremities: No lower extremity edema or cyanosis Neurological: A&Ox3 Psychiatric: cooperative Investigations: Labs, radiological imaging and cardiac work up were reviewed Review Family/Social History and ROS: Social History: Smoking Status: never smoker (1) Alcohol Use: denies(1) Drug Use: denies (1) Drug 2 Use: denies (1) Allergies: NKDA: Tape - Adhesive, Bandaids, Paper: Other Aspartame: Other Intolerances: Nexium: Unknown Objective: Objective Information: T PRBPSpO2 [id number]/6097% Date/Time05/25 13: 13: 4: 13: 13:30 Range(36.5C - 37.4C ) (60 - 73 ) (16 - 20 ) (125 - 162 )/ (58 - 81 ) (96% - 99% ) Highest temp of 37.4 C was recorded at 05/24 17:07 Pain reported at 05/25 15:00: 8 = Severe Medications: Medications: Continuous Medications ------ 1. Sodium Chloride 0.9% Infusion: 1000 mL IntraVenous Scheduled Medications ------ 1. Amphetamine - Dextroamphetamine: 20 mg Oral 2 Times a Day 2. Docusate: 100 mg Oral 2 Times a Day 3. Heparin SubCutaneous: 5000 unit(s) SubCutaneous Every 8 Hours 4. Iohexol (Omnipaque 350-Radiology Contrast): 150 mL IntraVenous Push Once 5. Iohexol (Omnipaque 350-Radiology Contrast): 150 mL IntraVenous Push Once 6. Levothyroxine: 50 microgram(s) Oral Daily 7. Pantoprazole Injectable: 40 mg IntraVenous Push Every 12 Hours 8. Sucralfate: 1 gram(s) Oral 4 Times a Day Before Meals PRN Medications ------ 1. diphenhydrAMINE Injectable: 25 mg IntraVenous Push Every 8 Hours 2. HYDROmorphone Injectable: 0.2 mg IntraVenous Push Every 4 Hours 3. LORazepam Injectable: 1 mg IntraVenous Push Every 8 Hours 4. Promethazine IV Piggy Back: 12.5 mg IntraVenous Piggyback Every 6 Hours 5. SUMAtriptan SubCutaneous: 6 mg SubCutaneous Once Recent Lab Results: Results: I have reviewed these laboratory results: Hemoglobin + Hematocrit 25-May-2021 16:11:00 ResultValue HCT 37.1 HGB 11.8 L Complete Blood Count 25-May-2021 08:04:00 ResultValue White Blood Cell Count 4.0 L Nucleated Erythrocyte Count 0.0 Red Blood Cell Count 3.68 L HGB 10.5 L HCT 33.1 L MCV 90 (more content not included)... Normal [facility] Covid 19 Resultson 1 SARS-CoV-2 (COVID-19) RNA MEAGAN+probe Ql (Unsp spec) NEGATIVE COVID-19 Test Coronaviruses are common world-wide and are the cause of many common colds. SARS-COV2 is a new coronavirus that began circulating worldwide in 2019 so we are calling it COVID-19. It has been estimated that four out of five patients with COVID-19 will recover at home without the need for medical attention. Symptoms of COVID-19 may include cough, fever, shortness of breath, loss of taste or smell and other flu-like symptoms including chills, sore muscles, sore throat, and headache. Severe illness is more common in older people and people with other health problems such as high blood pressure, obesity, and immune system problems. If the test is positive, you have COVID-19. You will be contacted by the ordering physicians office and instructed to remain on home isolation, in accordance with CDC guidelines. You may also be contacted by the [facility] to see if any of your close contacts may have been exposed to the virus and need to quarantine. If the test is negative, you likely do not have COVID-19 at this time, but you still may have a different illness that can spread to other people (like Influenza, or the Flu) and could still be at risk for getting COVID-19. We recommend that you stay away from other people to limit the spread of illness until your symptoms are improving and you are fever-free for 24 hours without the use of fever lowering medications such as acetaminophen or ibuprofen. No test is 100% accurate so if you are still concerned you may have COVID-19, talk to your doctor about the need to continue to stay away from others. Medicines Unless your provider told you not to use the following: Acetaminophen (Tylenol and others) is generally safe. Anti-inflammatory medications, such as Ibuprofen (Advil or Motrin) or Naproxen (Aleve) can also be used. Zoni-mbk-opcfurd cough and cold medicines can be used according to the instructions on the package. Some ioei-adz-utchlwe medicines also contain acetaminophen. Make sure you are not taking more than your recommended dose. For those not hospitalized, there is no specific treatment available for this illness. Antibiotics do not treat Coronaviruses. Follow-Up Follow up with your doctor by scheduling a virtual visit or consider follow-up at one of our urgent care fever clinics. If you are having difficulty breathing, or are very weak and having difficulty standing, this is a medical emergency. Call 911 or have someone take you to the nearest emergency room immediately. If possible, wear a facemask. Additional guidance from the CDC for patients who tested POSITIVE for COVID-19 How to isolate: Isolate yourself in a specific room at home and limit your contact with others. Use a separate bathroom from other members of the household, when possible. Leave home only to get essential medical care. Do not go to work, school or public areas. Avoid using public transportation, ride-sharing, or taxis. Restrict contact with pets and other animals. If you must care for your pet or be around animals while you are sick, wash your hands before and after your interaction and wear a facemask. Make sure that shared spaces in the home have good airflow, such as by an air conditioner or an opened window, weather permitting. Personal Hygiene Procedures: Wear a face mask when in the same room as other people or pets. If a face mask interferes with your breathing, others should wear a mask when sharing space with you. Frequent hand-washing: wash your hands with soap and water for at least 20 seconds. If soap and water are not available, use alcohol-based hand brush sander. Avoid touching your eyes, nose, and mouth with unwashed hands. Household Hygiene Procedures: Avoid sharing personal household items such as dishes, glassware, cups, eating utensils, towels or bedding with other people or pets in your home. After use, these items should be washed with soap and hot water. Disinfect all high-touch surfaces every day with antibacterial cleaning solutions such as Lysol wipes, bleach, cleansers, etc. High-touch surfaces include tabletops, doorknobs, bathroom fixtures, toilets, phones, keyboards, tablets and bedside tables. Immediately clean any surfaces that may have blood, poop or body fluids on them, using antibacterial cleaning solutions such as Lysol wipes, bleach, cleansers, etc. If clothing or bedding come into contact with blood, poop or body fluids, they should be washed immediately. Follow the directions on the laundry detergent and clothing labels but hot water is recommended when possible. Stopping home isolation precautions: If possible, consult your doctor before stopping home isolation precautions. According to the CDC, you can discontinue home isolation precautions when you have met both of these criteria: Your fever and respiratory symptoms have been gone for 24 gideon (more content not included)... Normal [facility] Daily Progress Note-Surgeryo n 05-25-2021 Daily Progress Note-Surgery Service: Surgery Subjective Data: MELINA DÍAZ is a 45 year old Female who is Hospital Day # 2. Additional Information: No major events over night. Abdominal pain slightly improved. States pain also radiates to the back. Still reports minimal tolerance of PO clears. Carafate offered minimal relief, but she had not been able to drink much. No BM today. Objective Data: Objective Information: T PRBPSpO2 [id number]/5896% Date/Time05/25 4: 4: 4: 4: 4:35 Range(36.5C - 37.4C ) (60 - 73 ) (16 - 20 ) (128 - 162 )/ (58 - 81 ) (96% - 99% ) Highest temp of 37.4 C was recorded at 05/24 17:07 Pain reported at 05/25 5:47: 8 = Severe Physical Exam Narrative: Physical Exam: Physical Exam: Constitutional: Well developed, awake/alert/oriented x3, no distress, alert and cooperative Eyes: EOMI, clear sclera Head/Neck: Neck supple, no apparent injury, No JVD, trachea midline Respiratory/Thorax: good chest expansion, thorax symmetric Cardiovascular: Regular Rate Gastrointestinal: Tender to palpation of RUQ (improved from yesterday), nondistended, soft, no mass large pannus Musculoskeletal: ROM intact, no joint swelling Extremities: normal extremities, no cyanosis edema, contusions or wounds, no clubbing Neurological: alert and oriented x3, intact senses, Psychological: Appropriate mood and behavior Skin: Warm and dry, no lesions, no rashes Recent Lab Results: Results: CBC: 05/24/2021 18:12 \ Hgb / \ 13.1 / WBC Plt 5.6 256 / Hct \ / 39.7 \ RBC: 4.55 MCV: 87 Neutrophil %: 46.3 CMP: 05/24/2021 18:12 NA+ Cl- BUN / 140 103 14 / ------ Glucose - 84 K+ HCO3- Creat \ 4.1 30 0.68 \ \ T Bili / \ 0.4 / AST x ---- x ALT 32 x ---- x 39 / Alk P \ / 61 \ Calcium : 9.3 Anion Gap : 11 Albumin : 4.2 T Protein : 6.8 Assessment and Plan: Comorbidities: Comorbidityobesity Obesitymorbid obesity (BMI 40+) Code Status: Code StatusFull Code Assessment: 45 year old female with a history of sleeve gastrectomy in 2011 who is currently admitted for management of 1 week of abdominal pain. Workup yesterday not suggestive of bowel obstruction or perforated viscus. Symptoms appropriate for pancreatitis, but unlikely given normal labs and CT findings. Patient has known peptic ulcer disease which may be contributing. Impression 1: RUQ/mid abdominal pain Plan for Impression 1: - Continue PPI - Continue Carafate - PO intake as tolerated - IV fluids support - Appreciate GI recs - No acute surgical intervention planned at this time Attestation: Note Completion: I am a: Resident/Fellow Attending AttestationI reviewed the resident/fellows documentation and discussed the patient with the resident/fellow. I agree with the resident/fellows medical decision making as documented in the note. Electronic Signatures: Brittany Bose) (Signed 28-May-2021 09:20) Authored: Note Completion Co-Signer: Service, Subjective Data, Objective Data, Assessment and Plan, Note Completion Leslie Tony (Fellow)) (Signed 25-May-2021 08:17) Authored: Service, Subjective Data, Objective Data, Assessment and Plan, Note Completion Last Updated: 28-May-2021 09:20 by Brittany Bose) Normal [facility] Discharge Planning [id number] 0 05-25-2021 Discharge Planning Note2 Discharge Planning: Planned Dispositionhome Anticipated Discharge [id number] Discharge Planning 05/27/21 1647 TRANSITIONAL BUILDING ENGINEER Met with patient at bedside, introduced self and explained role. Patient from home with spouse and kids. Confirmed insurance and RX coverage as well as demographics. Plan for home at discharge. Magaly Hammond RN, TCC Assessment: Discharge Planning Assessment [id number] Prior Level of Functioningindependent Lives Withspouse; dependent child(jackelin)(1) Living Arrangementshouse(1) Stated Reason for Admissionabdominal pain and can't keep anything down (1) [place] [facility] [place] Resource/Environmental Concernsnone(1) [place]ticipated [place](1) Services Anticipated at Transitionnone(1) InsuranceAnthem blue Medication Adherence/Afford/Obtainyes Discharge Documentation: Discharge/Transfer Date/[id number] 16:46 Discharged Accompanied Byspouse Discharge Modeambulatory Transportation Methodprivate car Valuables/Medications/Belo ngings Returnedyes Final DispositionHome Electronic Signatures: Amelia Hammond (OPERATIONS CLERK) (Signed 27-May-2021 16:49) Authored: Discharge Planning, Assessment Roni Mistry (RN) (Signed 25-May-2021 02:14) Authored: Discharge Planning, Assessment Leslie Alicea (PIETRO) (Signed 30-May-2021 16:46) Authored: Discharge Planning, Discharge Documentation Last Updated: 30-May-2021 16:46 by Leslie Alicea (RN) References: 1. Data Referenced From Patient Profile - Adult v2 25-May-2021 01:20 Normal [facility] HGB + HCTon 05-25-2021 Hematocrit (Bld) [Volume fraction] 37.1 % Normal 36.0 - 46.0 [facility] Comment on above: Performed By: #### H H #### [facility] [address] [place] [address] Hemoglobin (Bld) [Mass/Vol] 11.8 g/dL Low 12.0 - 16.0 [facility] Comment on above: Performed By: #### H H #### [facility] [address] [place] [address] LIPASEon 05-25-2021 Lipase [Catalytic activity/Vol] 13 U/L Normal 9 - 82 [facility] Comment on above: Result Comment: Latia puncture immediately after or during the administration of Metamizole may lead to falsely low results. Testing should be performed immediately prior to Metamizole dosing. Performed By: #### L IPAS ####[facility] [place] [address] LIPASE Canceled Normal [facility] Comment on above: Order Comment: TEST LIPASE WAS CANCELLED, 05/25/2021 04:35 DUPLICATE ORDER. Result Comment: Latia puncture immediately after or during the administration of Metamizole may lead to falsely low results. Testing should be performed immediately prior to Metamizole dosing. Performed By: #### L IPAS #### [facility] [address] [place] [address] Laboratory - Chemistry and C hemistry - challengeon 05-25-2021 Anion gap [Moles/Vol] 7 mmol/L below low threshold 10 - 20 NI-Kgkwonf-Jf rma [id number] Work Phone: Calcium [Mass/Vol] 6.9 mg/dL below low threshold 8.6 - 10.3 GC-Ciatcwo-It rma [id number] [address] Work Phone: Chloride [Moles/Vol] 113 mmol/L above high threshold 98 - 107 EJ-Jljdqrd-Ec rma MAC2 [address] Work Phone: CO2 [Moles/Vol] 25 mmol/L 21 - 32 MG-Surger y-Pa rma [id number] [address] Work Phone: Creatinine [Mass/Vol] 0.53 mg/dL See Below MG- Surgery-Pa rma MAC2 [address] Work Phone: Comment on above: Reference Range: 0.5 0 - 1.05 Glucose [Mass/Vol] 69 mg/dL below low threshold 74 - 99 PW-Cellalf-Jx rma [id number] [address] Work Phone: Potassium [Moles/Vol] 3.4 mmol/L below low threshold 3.5 - 5.3 DU-Qincuqq-Ad rma MAC2 [address] Work Phone: Sodium [Moles/Vol] 142 mmol/L 136 - 145 MG-Amrit taye-Pa rma MAC[facility] [address] Work Phone: Urea nitrogen [Mass/Vol] 8 mg/dL 6 - 23 AN-Bxsnjmm-Gq rma MAC2 [address] Work Phone: Laboratory - Hematology and Cell countson 05-25-2021 Hematocrit (Bld) [Volume fraction] 37.1 % See Below WB-Ektinat-Od rma MAC2 [address] Work Phone: Comment on above: Reference Range: 36. 0 - 46.0 Hemoglobin (Bld) [Mass/Vol] 11.8 g/dL below low threshold See Below OI-Bpgqimn-Il rma MAC2 [address] Work Phone: Comment on above: Reference Range: 12. 0 - 16.0 Erythrocyte distribution width (RBC) [Ratio] 13.7 % See Below OC-Tjkmuzi-Yk rma MAC2 303 Work Phone: Comment on above: Reference Range: 11. 5 - 14.5 Hematocrit (Bld) [Volume fraction] 33.1 % below low threshold See Below NF-Njewrdg-Cn rma MAC2 [address] Work Phone: Comment on above: Reference Range: 36. 0 - 46.0 Hemoglobin (Bld) [Mass/Vol] 10.5 g/dL below low threshold See Below IK-Lavcjlm-Qz rma MAC2 [address] Work Phone: Comment on above: Reference Range: 12. 0 - 16.0 MCHC (RBC) [Mass/Vol] 31.7 g/dL below low threshold See Below SF-Buefysu-Im rma MAC2 [address] Work Phone: Comment on above: Reference Range: 32. 0 - 36.0 MCV (RBC) [Entitic vol] 90 fL 80 - 100 WI-Odxvmhj-Sn rma MAC2 [address] Work Phone: Platelets (Bld) [#/Vol] 186 10*3/uL 150 - 450 IT-Igvpapi-Nw rma MAC2 [address] Work Phone: RBC (Bld) [#/Vol] 3.68 {x10E12/L} below low threshold See Below RZ-Ivsiygs-Mx rma MAC2 [address] Work Phone: Comment on above: Reference Range: 4.0 0 - 5.20 WBC (Bld) [#/Vol] 4.0 10*3/uL below low threshold 4.4 - 11.3 IN-Bqwtucl-Wn rma MAC2 303 Work Phone: No Panel Informationon 05-25 >60 >60 BU-Dvkpdpm-Rm rma MAC2 303 Work Phone: Comment on above: CALCULATIONS OF RANDY MATED GFR ARE PERFORMED USING THE MDRD STUDY EQUATION FOR THE IDMS-TRACEABLE CREATININE METHODS. CLIN CHEM 2007;53:766-72 0.0 {/100_WBC} 0.0 - 0.0 MG-Surgery -Pa rma MAC2 303 Work Phone: Patient Profile - Adult v2on 05-25-2021 Patient Profile - Adult v2 Profile: Initial Info: How to be Addressedjennifer Spoken Language PreferredEnglish (1) Source of Informationpatient Stated Reason for Admissionabdominal pain and can't keep anything down Wants Family/Rep Notified of Admissionyes, primary contact Notify PCPnotify PCP Informed of Patient Visiting Rightsyes Limitations on Visitors/Phone Callsnone Temporary Family Living Arrangements (While Hospitalized)none needed Ar[place] Admitted To in Past 90 Dayshospital Employment Statusemployed Current or Previous Servicenone Patient Belongingsremains with patient Patient Belongings Remaining with Patientcash/credit card; cell phone/electronics; clothing Medications Brought to Hospitalno History of MDROno General Health: Weight in kg118.2 kilogram(s)(2) Weight in ohi273.5 pound(s) Weight Methodstated Scale Typebed Height in cm172.7 centimeter(s) Height in feet5 feet(2) Height in inches8 inch(es)(2) Height Methodstated BMI (kg/m2)39.63 square meter RSP Based Care: How would you like to participate in your carecommunicate with me What is the number one concern for you during this hospitalizationN/A What is the most important thing we can do to support you during this hospitalizationn/a Is there anything we need to know to best care for efrain/a Substance: Smoking Statusnever smoker Alcohol Usedenies Drug Usedenies Drug 2 Usedenies Health Mgmt: Symptoms/Conditions Managed at Homegastrointestinal Are You no (1) Are You Currently Breastfeedingno (1) Gastrointestinal Symptoms/Conditionsabdomin al pain Gastrointestinal Managementnot managed Relationship/Environ: Resource/Environmental Concernsnone Primary Source of Support/Comfortspouse; child(jackelin) Lives Withspouse; dependent child(jackelin) Living Arrangementshouse Services Anticipated at Transitionnone Anticipated Transition [place] Significant IndicatorsComplete Information Review: Allergies, Home Meds and Significant Events have been Reviewed and Verified with Patient/Familyyes ALLERGY, INTOLERANCE, ADVERSE EVENT: Allergies: NKDA: Active Tape - Adhesive, Bandaids, Paper: Environment, Other, Active Aspartame: Food, Other, Active Intolerances: Nexium: Drug, Unknown, Active Electronic Signatures: Roni Mistry (PIETRO) (Signed 25-May-2021 01:25) Authored: Initial Info, General Health, RSP Based Care, Substance, Health Mgmt, Relationship/Environ, Additional Information Last Updated: 25-May-2021 01:25 by Roni Mistry (PIETRO) References: 1. Data Referenced From Triage - ED 24-May-2021 17:07 2. Data Referenced From 1. Vital Signs 24-May-2021 17:07 Normal [facility] Provider Note - ED v3on 05-15 Provider Note - ED v3 Provider Note: Chart Review: ED NOTES ED NOTES: HPI: 45-year-old female presents to the emergency department with abdominal pain. Her symptoms have been ongoing since last week and has been following instructions by her doctor, Dr. Conner for treatment of peptic ulcer disease. She has omeprazole at home along with Carafate and Zofran. Despite this treatment, her symptoms have persisted. She is guarding her right upper quadrant. Is associated with nausea and vomiting and has been having a hard time tolerating any fluids and keep yourself hydrated. She also had some episodes of diarrhea as well without blood or mucus. No recent fever. PAST MEDICAL HISTORY: Reviewed PAST SURGICAL HISTORY: Reviewed SOCIAL HISTORY: Smoking: Denies smoking Alcohol: Denies alcohol use Illicit Drugs: Denies current use of illicit drugs Living Arrangements: Living at home FAMILY HISTORY: Reviewed and noncontributory Review of Systems: A complete 14 point review of systems was done and is negative except as documented in the history of present illness. Negative except as documented in history of present illness Constitutional: Negative except as documented in history of present illness Skin: Negative except as documented in history of present illness Head: Negative except as documented in history of present illness EENT: Negative except as documented in history of present illness Neck: Negative except as documented in history of present illness Cardiac:Negative except as documented in history of present illness Pulmonary: Negative except as documented in history of present illness GI: Negative except as documented in history of present illness : Negative except as documented in history of present illness Musculoskeletal: Negative except as documented in history of present illness Hematologic: Negative except as documented in history of present illness Endocrine:Negative except as documented in history of present illness Neurological: Negative except as documented in history of present illness Psych: Negative except as documented in history of present illness Physical Exam: Appearance: Alert, No acute distress. Well nourished & well hydrated. Non toxic appearing Skin: Warm, dry, intact, no rash Head: Normocephalic, atraumatic Eyes: PERRLA, EOMs intact without pain, clear conjunctiva with no redness or exudates. Corneal and anterior chambers are clear. ENT: Nares patent. Moist mucous membranes. Neck: Supple. Trachea at midline. Pulmonary: Lungs clear to auscultation bilaterally. No rales, rhonchi or wheezing. No accessory muscle use or stridor. Cardiac: Normal S1, S2 without murmur. Abdomen: Soft, mild tenderness to the right upper quadrant, active bowel sounds. No rebound or guarding. Musculoskeletal: Full range of motion of all joints. No tenderness or deformity. Pulses present equally bilaterally. No peripheral edema. Neurological: A&O x3. No focal neuro deficits. Cranial nerves intact Psychiatric: Cooperative, Appropriate mood and affect. MEDICAL DECISION MAKING: Patient was seen and examined. Patient is well-appearing, nontoxic, no acute distress, presents with ongoing abdominal pain with nausea and vomiting and difficult tolerating p.o. On exam, right upper quadrant abdominal tenderness. She has been in contact with her surgeon, Dr. Conner who recommended her come through the emergency department for work-up. Patient was seen and examined by the fellow, Dr. Tony, who has been in direct contact with Dr. Conner Summary of old records were reviewed. I discussed the results with the patient. No leukocytosis, H&H is stable, chemistries including renal and liver function are stable. Lactate is negative. CT abdomen pelvis was obtained with oral and IV contrast without acute findings. Patient was given several CT abdomen pelvis was obtained with oral and IV contrast without acute findings. Patient was given several medications to help with her symptoms including morphine, Dilaudid, Protonix, Carafate. She then asked for Phenergan Protonix, Carafate. She then asked for Phenergan and something for her migraine and was given also Imitrex. Despite all these treatments, her symptoms persist. Dr. Tony reviewed the images and work-up today and discussed with Dr. Conner who did not recommend admission to surgery service as the patient does not have any surgical findings. Patient was admitted to medicine team for intractable abdominal pain and vomiting. Accepted by Dr. Ayala. - Physical exam findings, workup, treatment and results were discussed and agreed upon with my supervising physician throughout the patients stay. HISTORY OF PRESENTING ILLNESS MELINA is a 45 year old Female and was seen by me at 24-May-2021 21:06 for a chief complaint of multiple medical complaints (Pt states midsternal chest pain x 2 days, pain goes to ruq. (more content not included)... Normal [facility] URINALYSIS WITH CULTURE IF I NDICATEDon 05-25-2021 Appearance (U) CLEAR Normal CLEAR [facility] Comment on above: Performed By: #### H H #### [facility] [address] [place] [address] Bilirubin Ql (U) Negative Normal NEGATIVE [facility] Comment on above: Performed By: #### H H #### [facility] [address] [place] [address] Color (U) STRAW Normal STRAW,YELL OW [facility] Comment on above: Performed By: #### H H #### [address] [place] [address] Glucose Ql (U) Negative Normal NEGATIVE [facility] Comment on above: Performed By: #### H H #### [address] [address] Hemoglobin Ql (U) Negative Normal NEGATIVE [facility] Comment on above: Performed By: #### H H #### [address] [address] Ketones Ql (U) Negative Normal NEGATIVE [facility] Comment on above: Performed By: #### H H #### [address] [address] Leukocyte esterase Test strip Ql (U) Negative Normal NEGATIVE [facility] Comment on above: Performed By: #### H H #### [address] [address] Nitrite Ql (U) Negative Normal NEGATIVE [facility] Comment on above: Performed By: #### H H #### [address] [address] pH (U) 6.0 [pH] Normal 5.0 - 8.0 [facility] Comment on above: Performed By: #### H H #### [address] [address] Protein Ql (U) Negative Normal NEGATIVE [facility] Comment on above: Performed By: #### H H #### [address] [address] Specific gravity (U) [Rel density] >1.060 Abnormal 1.005 - 1.035 [facility] Comment on above: Result Comment: Spec [facility] gravity of >1.060 may be falsely elevated due to interferences with measurement. If clinically indicated, repeat testing with an alternative method is available by contacting the laboratory within 24 hours. Performed By: #### H H #### [address] [address] Urobilinogen (U) [Mass/Vol] mg/dL Normal 0.0 - 1.9 [facility] Comment on above: Performed By: #### H H #### [address] [address] BNPon 05-24-2021 Natriuretic peptide B (Bld) [Mass/Vol] 70 pg/mL Normal 0 - 99 [facility] Comment on above: Result Comment: . <1 00 pg/mL - Heart failure unlikely 100-299 pg/mL - Intermediate probability of acute heart . failure exacerbation. Correlate with clinical . context and patient history. >=300 pg/mL - Heart Failure likely. Correlate with clinical . context and patient history. BNP testing is performed using different testing methodology at [facility] than at other [facility]. Direct result comparisons should only be made within the same method. Performed By: #### B NP2 #### [address] [address] CBC AND DIFFERENTIALon 05-24 % AUTOMATED IMMATURE GRAN 0.2 % Normal 0.0 - 0.9 [facility] Comment on above: Result Comment: Yanni ture Granulocyte Count (IG) includes promyelocytes, myelocytes and metamyelocytes but does not include bands. Percent differential counts (%) should be interpreted in the context of the absolute cell counts (cells/L). Performed By: #### C BCDF #### [address] [address] Basophils (Bld) [#/Vol] 0.07 10*3/uL Normal 0.00 - 0.10 [facility] Comment on above: Performed By: #### C BCDF #### [address] [address] Basophils/100 WBC (Bld) 1.2 % Normal 0.0 - 2.0 [facility] Comment on above: Performed By: #### C BCDF #### [address] [address] Eosinophils (Bld) [#/Vol] 0.12 10*3/uL Normal 0.00 - 0.70 [facility] Comment on above: Performed By: #### C BCDF #### [address] [address] Eosinophils/100 WBC (Bld) 2.1 % Normal 0.0 - 6.0 [facility] Comment on above: Performed By: #### C BCDF #### [facility] [address] [place] [address] Erythrocyte distribution width (RBC) [Ratio] 13.7 % Normal 11.5 - 14.5 [facility] Comment on above: Performed By: #### C BCDF #### [facility] [address] [place] [address] Hematocrit (Bld) [Volume fraction] 39.7 % Normal 36.0 - 46.0 [facility] Comment on above: Performed By: #### C BCDF #### [address] [place] [address] Hemoglobin (Bld) [Mass/Vol] 13.1 g/dL Normal 12.0 - 16.0 [facility] Comment on above: Performed By: #### C BCDF #### [address] [place] [address] Lymphocytes (Bld) [#/Vol] 2.13 10*3/uL Normal 1.20 - 4.80 [facility] Comment on above: Performed By: #### C BCDF #### [facility] [address] [place] [address], [place] [address] Lymphocytes/100 WBC (Bld) 37.8 % Normal 13.0 - 44.0 [facility] Comment on above: Performed By: #### C BCDF #### [address] [place] [address] MCHC (RBC) [Mass/Vol] 33.0 g/dL Normal 32.0 - 36.0 [facility] Comment on above: Performed By: #### C BCDF #### [address] [place] [address] MCV (RBC) [Entitic vol] 87 fL Normal 80 - 100 [facility] Comment on above: Performed By: #### C BCDF #### [facility] [address] [place], [place] [address] [place] [address] Monocytes (Bld) [#/Vol] 0.70 10*3/uL Normal 0.10 - 1.00 [facility] Comment on above: Performed By: #### C BCDF #### [address] [place] [address] Monocytes/100 WBC (Bld) 12.4 % Normal 2.0 - 10.0 [facility] Comment on above: Performed By: #### C BCDF #### [address] [address] Neutrophils (Bld) [#/Vol] 2.61 10*3/uL Normal 1.20 - 7.70 [facility] Comment on above: Performed By: #### C BCDF #### [address] [address] Neutrophils/100 WBC (Bld) 46.3 % Normal 40.0 - 80.0 [facility] Comment on above: Performed By: #### C BCDF #### [address] [address] NUCLEATED RBC 0.0 /100 WBC Normal 0.0 - 0.0 [facility] Comment on above: Performed By: #### C BCDF #### [address] [address] Platelets (Bld) [#/Vol] 256 10*3/uL Normal 150 - 450 [facility] Comment on above: Performed By: #### C BCDF #### [address] [address] RBC 4.55 x10E12/L Normal 4.00 - 5.20 [facility] Comment on above: Performed By: #### C BCDF #### [address] [address] WBC (Bld) [#/Vol] 5.6 10*3/uL Normal 4.4 - 11.3 [facility] Comment on above: Performed By: #### C BCDF #### [address] [address] CHEST 1 VIEWon 05-24-2021 CHEST 1 VIEW Patient Name: MELINA DÍAZ STUDY: CHEST 1 VIEW; 05/24/2021 5:39 pm INDICATION: Chest pain and /or palpitations. COMPARISON: None. ACCESSION NUMBER(S): [id number] ORDERING CLINICIAN: KATE GOODAMN FINDINGS: The cardiomediastinal silhouette and pulmonary vasculature are within normal limits. No consolidation, pleural effusion, or pneumothorax. IMPRESSION: No acute cardiopulmonary process. Electronically signed by: ARCADIO QUINTANA MD Normal [facility] COMPREHENSIVE PANELon 2020 Albumin [Mass/Vol] 4.2 g/dL Normal 3.4 - 5.0 [facility] Comment on above: Performed By: #### C MP ####[facility] [place] [address] ALP [Catalytic activity/Vol] 61 U/L Normal 33 - 110 [facility] Comment on above: Performed By: #### C MP ####[facility] [place], [place] [address], [place] [address] ALT [Catalytic activity/Vol] 39 U/L Normal 7 - 45 [facility] Comment on above: Result Comment: Donita ents treated with Sulfasalazine may generate falsely decreased results for ALT. Performed By: #### C MP ####[facility] [place] [address] Anion gap [Moles/Vol] 11 mmol/L Normal 10 - 20 [facility] Comment on above: Performed By: #### C MP ####[facility] [place], [place] [address], [place] [address] AST [Catalytic activity/Vol] 32 U/L Normal 9 - 39 [facility] Comment on above: Performed By: #### C MP ####[facility] [place], [place] [address], [place] [address] Bilirubin [Mass/Vol] 0.4 mg/dL Normal 0.0 - 1.2 [facility] Comment on above: Performed By: #### C MP ####[facility] [facility] [place] [address] Calcium [Mass/Vol] 9.3 mg/dL Normal 8.6 - 10.3 [facility] Comment on above: Performed By: #### C MP ####[address] [place] [address] Chloride [Moles/Vol] 103 mmol/L Normal 98 - 107 [facility] Comment on above: Performed By: #### C MP ####[address] [address] Creatinine [Mass/Vol] 0.68 mg/dL Normal 0.50 - 1.05 [facility] Comment on above: Performed By: #### C MP ####[address] [address] GFR- AM. >60 Normal >60 [facility] Comment on above: Result Comment: CALC ULATIONS OF ESTIMATED GFR ARE PERFORMED USING THE MDRD STUDY EQUATION FOR THE IDMS-TRACEABLE CREATININE METHODS. CLIN CHEM 2007;53:766-72 Performed By: #### C MP ####[address] [address] GFR-NON AM. >60 Normal >60 [facility] Comment on above: Performed By: #### C MP ####[address] [address] Glucose [Mass/Vol] 84 mg/dL Normal 74 - 99 [facility] Comment on above: Performed By: #### C MP ####[address] [address] HCO3 (Bld) [Moles/Vol] 30 mmol/L Normal 21 - 32 [facility] Comment on above: Performed By: #### C MP ####[address] [address] Potassium [Moles/Vol] 4.1 mmol/L Normal 3.5 - 5.3 [facility] Comment on above: Performed By: #### C MP ####[address] [address] Protein [Mass/Vol] 6.8 g/dL Normal 6.4 - 8.2 [facility] Comment on above: Performed By: #### C MP ####[address] [address] Sodium [Moles/Vol] 140 mmol/L Normal 136 - 145 [facility] Comment on above: Performed By: #### C MP ####[address] [address] Urea nitrogen [Mass/Vol] 14 mg/dL Normal 6 - 23 [facility] Comment on above: Performed By: #### C ####[facility] [place] [address] CT ABDOMEN AND PEL[facility] ABDOMEN AND PELVIS W IV CONTRAST Patient Name: MELINA DÍAZ STUDY: CT ABDOMEN AND PELVIS W IV CONTRAST; 05/24/2021 8:26 pm INDICATION: mid abd pain. COMPARISON: 09/13/2015 ACCESSION NUMBER(S): [id number] ORDERING CLINICIAN: MOI PAREDES TECHNIQUE: Contiguous axial images of the abdomen and pelvis were obtained after the intravenous administration of 140 mL Omnipaque 350. Coronal and sagittal reformatted images were obtained from the axial images. FINDINGS: Minimal basilar atelectasis. No pleural effusion. Small hiatal hernia. No evidence of enhancing liver mass. There is postsurgical change of cholecystectomy. No significant dilatation common bile duct. Nonspecific 11 mm cystic lesion in the spleen. The adrenal glands appear unremarkable. Symmetric enhancement the kidneys. Several small subcentimeter renal hypodensities are too small to characterize. No hydronephrosis. There is stable postsurgical change of the stomach. No evidence of bowel obstruction or acute appendicitis. Urinary bladder is underdistended and not well evaluated. The uterus is surgically absent. Limited evaluation the adnexa. No evidence of significant free abdominal or pelvic fluid. Degenerative change of the lumbar and imaged lower thoracic spine. Stable mild deformity of superior endplate of T12. IMPRESSION: No evidence of bowel obstruction or acute appendicitis. Postsurgical change of cholecystectomy. No significant free abdominal or pelvic fluid. Electronically signed by: PENNY CALERO MD Normal [facility] CT Abdomen and Pelvis with I V Contraston 05-24-2021 CT Abdomen and Pelvis W contrast IV Normal YU-Ackwfqt-Xa rma [id number] Work Phone: Complete Blood Count + Diffe rentialon 05-24-2021 Basophils/100 WBC (Bld) 1.2 % 0.0 - 2.0 ND-Xrfrvni-Sq rma [id number] Work Phone: Erythrocyte distribution width (RBC) [Ratio] 13.7 % See Below US-Ccgrdhw-Zw rma [id number] [address] Work Phone: Comment on above: Reference Range: 11. 5 - 14.5 Hematocrit (Bld) [Volume fraction] 39.7 % See Below QR-Ppuovli-Ym rma [id number] [address] Work Phone: Comment on above: Reference Range: 36. 0 - 46.0 Hemoglobin (Bld) [Mass/Vol] 13.1 g/dL See Below UE-Zscjmsh-Lz rma [id number] [address] Work Phone: Comment on above: Reference Range: 12. 0 - 16.0 Lymphocytes/100 WBC (Bld) 37.8 % See Below YG-Oiaekrf-Gt rma [facility] [address] Work Phone: Comment on above: Reference Range: 13. 0 - 44.0 MCHC (RBC) [Mass/Vol] 33.0 g/dL See Below MG- Surgery-Pa rma [id number] 303 Work Phone: Comment on above: Reference Range: 32. 0 - 36.0 MCV (RBC) [Entitic vol] 87 fL 80 - 100 LY-Zkugqhp-Qh rma [id number] 303 Work Phone: Monocytes/100 WBC (Bld) 12.4 % 2.0 - 10.0 LM-Ywunues-Nn rma [id number] 303 Work Phone: Neutrophils/100 WBC (Bld) 46.3 % See Below TQ-Kmmkhiw-Bx rma [id number] [address] Work Phone: Comment on above: Reference Range: 40. 0 - 80.0 Platelets (Bld) [#/Vol] 256 10*3/uL 150 - 450 JK-Dapucvn-Sj rma [id number] 303 Work Phone: RBC (Bld) [#/Vol] 4.55 {x10E12/L} See Below MG -Surgery-Pa rma [id number] 303 Work Phone: Comment on above: Reference Range: 4.0 0 - 5.20 WBC (Bld) [#/Vol] 5.6 10*3/uL 4.4 - 11.3 MG-Amrit taye-Pa rma [id number] 303 Work Phone: Complete Blood Count + Differential 0.07 {x10E9/L} See Below KM-Nisgmvx-Hd rma [facility] 303 Work Phone: Comment on above: Reference Range: 0.0 0 - 0.10 Complete Blood Count + Differential 0.12 {x10E9/L} See Below CF-Xlfcatp-Zh rma [facility] Work Phone: Comment on above: Reference Range: 0.0 0 - 0.70 Complete Blood Count + Differential 0.70 {x10E9/L} See Below TH-Qsvewqv-Rf rma [facility] Work Phone: Comment on above: Reference Range: 0.1 0 - 1.00 Complete Blood Count + Differential 2.13 {x10E9/L} See Below ZS-Alcqdjj-Ur rma [facility] Work Phone: Comment on above: Reference Range: 1.2 0 - 4.80 Complete Blood Count + Differential 2.61 {x10E9/L} See Below AF-Zyspmjm-Ai rma [facility] Work Phone: Comment on above: Reference Range: 1.2 0 - 7.70 Complete Blood Count + Differential 2.1 % 0.0 - 6.0 OH-Ehfkhmg-Nx rma [facility] Work Phone: Complete Blood Count + Differential 0.2 % 0.0 - 0.9 YY-Hvpjqla-Ao rma [facility] Work Phone: Comment on above: Immature Granulocyte Count (IG) includes promyelocytes, myelocytes and metamyelocytes but does not include bands. Percent differential counts (%) should be interpreted in the context of the absolute cell counts (cells/L). Complete Blood Count + Differential 0.0 {/100_WBC} 0.0 - 0.0 DQ-Ntuqsbt-Oj rma [facility] Work Phone: Consult-Surgeryon 05-24-2021 Consult-Surgery Service: Service: Surgery History of Present Illness: HPI: MELINA DÍAZ is a 45 year old Female who presents for evaluation of abdominal pain. Previously evaluated earlier in the week at an OSH and had CT without significant intra-abdominal pathology. Has known gastric ulcer. Of note, her past surgical history is significant for sleeve gastrectomy 9 years ago and laparoscopic lysis of adhesions 7 years ago as well as laparoscopic cholecystectomy. She states that the pain started one week ago and has become progressively worse. It is now associated with vomiting and diarrhea. She is now tolerating minimal PO clear liquids. On exam, her abdomen is mildly distended with focal tenderness in the RUQ. Allergies: NKDA: Tape - Adhesive, Bandaids, Paper: Other Aspartame: Other Intolerances: Nexium: Unknown Objective: Objective Information: T PRBPSpO2 [id number]/7299% Date/Time05/24 17: 17: 17: 17: 17:07 Range(37.4C - 37.4C ) (73 - 73 ) (20 - 20 ) (162 - 162 )/ (72 - 72 ) (99% - 99% ) Highest temp of 37.4 C was recorded at 05/24 17:07 Physical Exam Narrative: Physical Exam: Physical Exam: Constitutional: Well developed, awake/alert/oriented x3, appears uncomfortable Eyes: EOMI, clear sclera Head/Neck: Neck supple, no apparent injury, No JVD, trachea midline Respiratory/Thorax: good chest expansion, thorax symmetric Cardiovascular: Regular Rate Gastrointestinal: Mildly distended, tender in the RUQ, soft, no rebound tenderness or guarding, no masses palpable Musculoskeletal: ROM intact, no joint swelling Extremities: normal extremities, no cyanosis edema, contusions or wounds, no clubbing Neurological: alert and oriented x3, intact senses Psychological: Appropriate mood and behavior Skin: Warm and dry, no lesions, no rashes Recent Lab Results: Results: I have reviewed these laboratory results: Complete Blood Count + Differential 24-May-2021 18:12:00 ResultValue White Blood Cell Count 5.6 Nucleated Erythrocyte Count 0.0 Red Blood Cell Count 4.55 HGB 13.1 HCT 39.7 MCV 87 MCHC 33.0 PLT 256 RDW-CV 13.7 Neutrophil % 46.3 Immature Granulocytes % 0.2 Lymphocyte % 37.8 Monocyte % 12.4 Eosinophil % 2.1 Basophil % 1.2 Neutrophil Count 2.61 Lymphocyte Count 2.13 Monocyte Count 0.70 Eosinophil Count 0.12 Basophil Count 0.07 Assessment: This is a 45 year old female with a past surgical history of sleeve gastrectomy in 2012 and laparoscopic lysis of adhesions in 2014 who presents with one week of worsening abdominal pain and new onset diarrhea. She has known gastric ulcer disease and may have duodenal ulcer disease contributing to her presents symptoms. Give her history, evaluation to rule out small bowel obstruction due to adhesion or occult hernia would also be appropriate Problem/Assessment/Plan: Impression 1: Acute abdominal pain with poor PO intake Plan for Impression 1: - IV fluid hydration - Carafate - Acid suppression - Pain managment - CT with PO and IV contrast Attestation: Note Completion: I am a: Resident/Fellow Attending AttestationI reviewed the resident/fellows documentation and discussed the patient with the resident/fellow. I agree with the resident/fellows medical decision making as documented in the note. Electronic Signatures: Brittany Bose) (Signed 28-May-2021 09:20) Authored: Note Completion Co-Signer: History of Present Illness, Objective, Assessment/Recommendations , Note Completion Leslie Tony (Fellow)) (Signed 24-May-2021 19:06) Authored: Service, History of Present Illness, Allergies, Objective, Assessment/Recommendations , Note Completion Last Updated: 28-May-2021 09:20 by Brittany Bose) Normal [facility] Coronavirus 2019 RNA by PCR, Screening Asymptomticon 05-24-2021 Coronavirus 2019 RNA by PCR, Screening Asymptomtic Not detected Normal See Below JQ-Dvklpnt-Ch rma [facility]2 303 Work Phone: Comment on above: SOURCE: Nasal, Nasop haryngealReference Range: Not Detected.This test has received FDA Emergency Use Authorization (EUA) and has been verified by [facility] [facility] This test is only authorized for the duration of time that circumstances exist to justify the authorization of the emergency use of in vitro diagnostic tests for the detection of SARS-CoV-2 virus and/or diagnosis of COVID-19 infection under section 564(b)(1) of the Act, 21 U.S.C. 360bbb-3(b)(1), unless the authorization is terminated or revoked sooner. [facility] is certified under CLIA-88 as qualified to perform high complexity testing. Testing is performed in the [facility] laboratory located at [address] [place] [id number].SARS-CoV-2/Flu/RSV Multiplex Test: Fact sheet for providers: https://www.fda.gov/media/553734/downloadFact sheet for patients: https://www.fda.gov/media/488157/download LACTATEon 05-24-2021 Lactate [Moles/Vol] 0.9 mmol/L Normal 0.4 - 2.0 [facility] Comment on above: Result Comment: Latia puncture immediately after or during the administration of Metamizole may lead to falsely low results. Testing should be performed immediately prior to Metamizole dosing. Performed By: #### L ACT ####[facility] [place] [address] Laboratory - Chemistry and C hemistry - challengeon 05-24-2021 Albumin BCP dye [Mass/Vol] 4.2 g/dL 3.4 - 5.0 SC-Figyfoi-Wr a [facility] Work Phone: ALP [Catalytic activity/Vol] 61 U/L 33 - 110 GH-Paickzg-Us a [facility] Work Phone: ALT With P-5'-P [Catalytic activity/Vol] 39 U/L 7 - 45 GO-Bppwnji-Pv a [facility] 303 Work Phone: Comment on above: Patients treated wit h Sulfasalazine may generate falsely decreased results for ALT. Anion gap [Moles/Vol] 11 mmol/L 10 - 20 MG- Surgery-Pa rma [facility] Work Phone: AST With P-5'-P [Catalytic activity/Vol] 32 U/L 9 - 39 DG-Ozccnjz-Dv a [facility] Work Phone: Bilirubin [Mass/Vol] 0.4 mg/dL 0.0 - 1.2 MG-S urgery-Pa a [facility] Work Phone: Calcium [Mass/Vol] 9.3 mg/dL 8.6 - 10.3 MG-Amrit taye-Pa rma [facility] 303 Work Phone: Chloride [Moles/Vol] 103 mmol/L 98 - 107 MG-S urgery-Pa rma [facility] 303 Work Phone: CO2 [Moles/Vol] 30 mmol/L 21 - 32 MG-Surger y-Pa rma [facility] Work Phone: Creatinine [Mass/Vol] 0.68 mg/dL See Below MG- Surgery-Pa rma [facility] Work Phone: Comment on above: Reference Range: 0.5 0 - 1.05 Glucose [Mass/Vol] 84 mg/dL 74 - 99 MG-Amrit taye-Pa rma [facility] Work Phone: Potassium [Moles/Vol] 4.1 mmol/L 3.5 - 5.3 MG- Surgery-Pa rma [facility] Work Phone: Protein [Mass/Vol] 6.8 g/dL 6.4 - 8.2 MG-Amrit taye-Pa rma [facility] Work Phone: Sodium [Moles/Vol] 140 mmol/L 136 - 145 MG-Amrit taye-Pa rma [facility] Work Phone: Urea nitrogen [Mass/Vol] 14 mg/dL 6 - 23 ZA-Aqynsqi-Pt rma [facility] Work Phone: Lactate, Levelon 05-24-2021 Lactate [Moles/Vol] 0.9 mmol/L 0.4 - 2.0 MG-[place] rgery-Pa rma [facility] Work Phone: Comment on above: Venipuncture immedia tely after or during the administration of Metamizole may lead to falsely low results. Testing should be performed immediately prior to Metamizole dosing. Lipase, Serumon 05-24-2021 Lipase [Catalytic activity/Vol] Canceled MC-Tskqnlv-Er rma [facility] Work Phone: Comment on above: Venipuncture immedia tely after or during the administration of Metamizole may lead to falsely low results. Testing should be performed immediately prior to Metamizole dosing. Lipase [Catalytic activity/Vol] 13 U/L 9 - 82 JH-Ethlqdd-Bz rma [facility] 303 Work Phone: Comment on above: Venipuncture immedia tely after or during the administration of Metamizole may lead to falsely low results. Testing should be performed immediately prior to Metamizole dosing. No Panel Informationon 05-24 >60 >60 FK-Rqwenaj-Os rma [facility] 303 Work Phone: Comment on above: CALCULATIONS OF R[place]Y MATED GFR ARE PERFORMED USING THE MDRD STUDY EQUATION FOR THE IDMS-TRACEABLE CREATININE METHODS. CLIN CHEM 2007;53:766-72 70 pg/mL 0 - 99 OA-Nbdxahs-Ej rma [facility] 303 Work Phone: Comment on above: . <100 pg/mL - Heart failure zijgrabs752-517 pg/mL - Intermediate probability of acute heart. failure exacerbation. Correlate with clinical. context and patient history. >=300 pg/mL - Heart Failure likely. Correlate with clinical. context and patient history.BNP testing is performed using different testing methodology at [facility] than at other [facility]. Direct result comparisons should only be made within the same method. http://[email or web address] 1:8080 /musescripts/[email or web address].dll?R etrieveTestByDateTime?Donita tevML=[id number]&Date=06-22&Time=17%3a13%3a08%3a 00&TestType=ECG&Site=10&Ou tputType=PDF&Ext=PDF MG-Pulm [facility] 203 Work Phone: Sinus rhythm MG-Pul[facility] 203 Work Phone: Normal [facility] Work Phone: [phone] [facility] Work Phone: [phone] MG-Pulm [facility] 203 Work Phone: [phone] MG-Pulm [facility] 203 Work Phone: [phone] MG-Pulm [facility] 203 Work Phone: [phone] MG-Pulm [facility] 203 Work Phone: [phone] MG-Pulm [facility] 203 Work Phone: [phone] MG-Pulm [facility] 203 Work Phone: [phone] MG-Pulm [facility] 203 Work Phone: [phone] MG-Pulm [facility] 203 Work Phone: [phone] MG-Pulm [facility] 203 Work Phone: [phone] MG-Pulm [facility] 203 Work Phone: [phone] MG-Pulm [facility] 203 Work Phone: [phone] MG-Pulm [facility] 203 Work Phone: [phone] Radiologyon 05-24-2021 XR Chest Single view Normal MG-S urgery-Pa rma [facility] 303 Work Phone: TROPONIN Ion 05-24-2021 Troponin I.cardiac [Mass/Vol] ng/mL Normal 0.00 - 0.03 [facility] Comment on above: Result Comment: LESS THAN 0.04 NG/ML: NEGATIVE REPEAT TESTING IN THREE TO SIX HOURS IF CLINICALLY INDICATED. 0.04 - 0.5 NG/ML: CONSISTENT WITH POSSIBLE CARDIAC DAMAGE AND POSSIBLE INCREASED CLINICAL RISK. SERIAL MEASUREMENTS MAY HELP ASSESS EXTENT OF MYOCARDIAL DAMAGE. >0.5 NG/ML: CONSISTENT WITH CARDIAC DAMAGE, INCREASED CLINICAL RISK AND MYOCARDIAL INFARCTION. SERIAL MEASUREMENTS MAY HELP ASSESS EXTENT OF MYOCARDIAL DAMAGE. . Note: Troponin I testing is performed using different testing methodology at [facility] than at other [facility]. Direct result comparisons should only be made within the same method. Performed By: #### H H #### [facility] [address] [place] [address] Triage - EDon 05-24-2021 Triage - ED Quick Triage: Are You no Have You Given In The Last 6 Weeksno Are You Currently Breastfeedingno Chart Review: PRIMARY ASSESSMENT MELINA DÍAZ's primary assessment is Within Defined Limits. The airway is open and patent. Breathing spontaneous and unlabored with clear breath sounds bilaterally. Circulation is normal with good peripheral pulses. Skin is warm and dry and color is normal for race. 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 She doesn't have her gallbladder. Patient states SOB x 1 hour. Pt has dry cough. Pt had negative covid swab done at yesterday.). Triage Date/Time: 24-May-2021 17:07 ELAINE: 3 Vital Signs: Temperature: 99.3F ( 37.4C) taken temporal Blood Pressure: 162/72 Mean: Heart Rate: 73 Respiratory Rate: 20 Pulse Oximetry: 99% on room air, no respiratory support. Height: 5 feet 8.00 inches. 172.7 CM Weight: 260.5 pounds. Calculated 118.2 kg. 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 Patient has homicidal thoughts: no Symptoms Are POSITIVE For: dyspnea and pain Symptoms Are Negative For: anxiety, chills, diaphoresis, headache, loss of consciousness, nausea, numbness, tingling and weakness Risk Screens Suicide Risk Screen In the Past Month: Have you wished you were or wished you could go to sleep and not wake up no In the Past Month: Have you had any actual thoughts of killing yourself no In Your Lifetime: Have you ever done anything, started to do anything, or prepared to do anything to end your life no Suarez Fall Scale Screening Has the patient fallen before (or is the patient in the ED as a result of a fall) has not had a fall Does the patient have an impaired gait does not have impaired gait Is the patient cognitively impaired not cognitively impaired Interventions: Suarez Fall Interventions: LOW INTERVENTIONS: *patient oriented to surroundings and call system, * patient/family falls education completed and documented, *patients fall status communicated during bedside handoff, *whiteboard updated, *mode of toileting discussed with patient, *bed in low position with brakes locked, *call light in reach, * non-skid footwear TRAVEL HISTORY Travel History Coronavirus Screening: positive for symptoms Travel Exposure History: NO travel to International locations in the past 30 days PAIN Pain Scale Used: TAE Past Medical History: Past Medical History Reviewedyes Electronic Signatures: Lorenza Valdivia (RN) (Signed 24-May-2021 17:16) Entered: Risk Screens, Pain, Arrival, ABCD, Travel History, Chart Review, Scores, Past Medical History Authored: Quick Triage, Risk Screens, Pain, Arrival, ABCD, Travel History, Chart Review, Scores, Past Medical History Last Updated: 24-May-2021 17:16 by Lorenza Valdivia (PIETRO) Normal [facility] Troponin I, Serumon 05-24-20 21 Troponin I.cardiac [Mass/Vol] ng/mL See Below YE-Asubucr-He Enject [facility] 303 Work Phone: Comment on above: Reference Range: 0.0 0 - 0.03LESS THAN 0.04 NG/ML: NEGATIVEREPEAT TESTING IN THREE TO SIX HOURSIF CLINICALLY INDICATED.0.04 - 0.5 NG/ML: CONSISTENT WITH POSSIBLECARDIAC DAMAGE AND POSSIBLE INCREASEDCLINICAL RISK.SERIAL MEASUREMENTS MAY HELP ASSESS EXTENT OFMYOCARDIAL DAMAGE.>0.5 NG/ML: CONSISTENT WITH CARDIAC DAMAGE,INCREASED CLINICAL RISK AND MYOCARDIALINFARCTION. SERIAL MEASUREMENTS MAY HELPASSESS EXTENT OF MYOCARDIAL DAMAGE..Note: Troponin I testing is performed using different testing methodology at [facility] than at other [facility]. Direct result comparisons should only be made within the same method. URINALYSIS WITH CULTURE IF I NDICATEDon 05-24-2021 Color (U) STRAW See Below DK-Dqqcqel-Xe rma [facility] 303 Work Phone: Comment on above: Reference Range: STR AW,YELLOW Glucose Ql (U) Negative NEGATIVE MG-Surgery -Pa rma [facility] 303 Work Phone: Ketones Ql (U) Negative NEGATIVE MG-Surgery -Pa rma [facility] 303 Work Phone: Leukocyte esterase Test strip Ql (U) Negative NEGATIVE YY-Kuwtfdw-Ut rma [facility] Work Phone: pH (U) 6.0 [pH] 5.0 - 8.0 KX-Ayxirqb-Ux rma [facility] 303 Work Phone: Protein (U) [Mass/Vol] Negative NEGATIVE PD-Sxuuxrh-Ka rma [facility] Work Phone: RBC (U) [#/Vol] Negative NEGATIVE MG-Surger y-Pa rma [facility] 303 Work Phone: Specific gravity (U) [Rel density] >1.060 Abnormal See Below ID-Vtvslst-Id rma [facility] 303 Work Phone: Comment on above: Reference Range: 1.0 05 - 1.035 Specific gravity of >1.060 may be falsely elevated due to interferences with measurement. If clinically indicated, repeat testing with an alternative method is available by contacting the laboratory within 24 hours. URINALYSIS WITH CULTURE IF INDICATED Negative NEGATIVE MG-Surgery- Pa rma [facility] Work Phone: URINALYSIS WITH CULTURE IF INDICATED <2.0 0.0 - 1.9 MG-Surgery- Pa rma [facility] Work Phone: URINALYSIS WITH CULTURE IF INDICATED CLEAR CLEAR MG-Surgery- Pa rma [facility] Work Phone: Operative Reporton Operative Report [id number]#1.00CD:127 Normal [facility] CURINon 02-26-2021 LBIN Patient: TARIQ DÍAZ MRLUIS ANTONIO [id number] Location: OUTPATIEN Aount: [id number] : 1975 Age: 45 Sex F Lab NumbEr [id number] Requested by: PHYSICIANDIANN. Admitdate: 02/26/21 Source: UR Collected: 02/26/21 11:54 Site: clean catch Received : 02/26/21 11:54 Culture, Urine FINAL 02/28/21 06:34 02/27/21 AEROBIC CULTURE RESULTS: NO BACTERIAL GROWTH Normal [facility] Comment on above: Performed By: #### M IC2 #### [employer] [facility] [place] [address] [place] [address] UA w/reflex microscopic exam inationon 02-26-2021 Appearance (U) sl.cloudy Normal Clear [facility] Comment on above: Performed By: #### U ARM #### [facility] [employer] [facility] [place] [address] [place] [address] Bilirubin Ql (U) Negative Normal Negative [facility] Comment on above: Performed By: #### U ARM #### [employer] [facility] [place] [address] [place] [address] Color (U) keysha Normal [place] [facility] Comment on above: Performed By: #### U ARM #### [facility] [employer] [facility] [place] [address] [place] [address] Glucose Ql (U) NORMAL Normal Negative [facility] Comment on above: Performed By: #### U ARM #### [facility] [employer] [facility] [place] [address] [place] [address] Hemoglobin Ql (U) 250 Abnormal Negative [facility] Comment on above: Performed By: #### U ARM #### [employer] [facility] [place] [address] [place] [address] Ketones Ql (U) Negative Normal Negative [facility] Comment on above: Performed By: #### U ARM #### [facility] [place] [address] [place] [address] Leukocytes Esterase TRACE Abnormal Negative [facility] Comment on above: Performed By: #### U ARM #### [facility] [address] [place] [address] Nitrite Ql (U) Negative Normal Negative [facility] Comment on above: Performed By: #### U ARM #### [facility] [address] [place] [address] pH (U) 6 [pH] Normal [facility] Comment on above: Performed By: #### U ARM #### [facility] [address] [place] [address] Protein Ql (U) [address] [facility] Comment on above: Performed By: #### U ARM #### [facility] [address] [place] [address] Specific gravity (U) [Rel density] 1.020 Normal 1.015-1.[address] [facility] Comment on above: Performed By: #### U ARM #### [facility] [address] [place] [address] Urobilinogen NORMAL Normal Normal-1.0 [facility] Comment on above: Performed By: #### U ARM #### [facility] [address] [place] [address] Urine Microscopicon 02-27-[address] OF APPEALS JUDGE Normal 0 - 1+ [facility] Comment on above: Performed By: #### U MIC1 #### [facility] [address] [place] [address] OF APPEALS JUDGE Normal [facility] Comment on above: Performed By: #### U MIC1 #### [facility] [address] [place] [address] OF APPEALS JUDGE Normal [facility] Comment on above: Performed By: #### U MIC1 #### [facility] [address] [place] [address] Crystals LM Nom (Urine sed) Rare Amorphous Normal [facility] Comment on above: Performed By: #### U MIC1 #### [facility] [address] [place] [address] OF APPEALS JUDGE Normal [facility] Comment on above: Performed By: #### U MIC1 #### [facility] [address] [place] [address] Epithelial cells LM Ql (Urine sed) 0-2 Normal 0 - 6 [facility] Comment on above: Performed By: #### U MIC1 #### [facility] [address] [facility] [place] [address] Mucus Ql (Urine sed) COURT OF APPEALS JUDGE Normal [facility] Comment on above: Performed By: #### U MIC1 #### [facility] [address] [place] [address] RBC 50-100 Normal 0 - 2 [facility] Comment on above: Performed By: #### U MIC1 #### [facility] [address] [place] [address] OF APPEALS JUDGE Normal [facility] Comment on above: Performed By: #### U MIC1 #### [facility] [address] [facility] [place] [address] WBC 2-5 Normal 0 - 6 [facility] Comment on above: Performed By: #### U MIC1 #### [facility] [address] [facility] [place] [address] OF APPEALS JUDGE Normal [facility] Comment on above: Performed By: #### U MIC1 #### [facility] [address] [place] [address] [address] OF APPEALS JUDGE Normal [facility] Comment on above: Performed By: #### U MIC1 #### [facility] [address] [place] [address] ED Note-Physicianon 02-20-20 ED Note-Physician [id number]:127 Normal [facility] Formson 02-19-2021 Forms [id number]#1.00CD:127 Normal [facility] Lab Reportson 02-19-2021 Lab Reports [id number]#1.00CD:127 Normal [facility] Lab Reports [id number]:127 Normal [facility] Lab Reports [id number]#1.00CD:127 [facility] RAD - CT Reporton 02-19-[address] - [address] Report [id number]:127 Normal [facility] RAD - CT Report [id number]:127 Normal [facility] RAD - Ultrasound Reporton RAD - Ultrasound Report [id number]#1.00CD:127 Normal [facility] Ambulatory Clinical Summaryo n 02-18-2021 Ambulatory Clinical Summary {[id number]}CD: [id number] [facility] Ambulatory Clinical Summary {[id number]}CD: 140706 [facility] Consultation Noteon 02-19-20 Consultation Note [id number]:127 Normal [facility] Formson 02-18-2021 Forms [id number]#1.00CD:127 [facility] Insurance Correspondence Off iceon 02-18-2021 Insurance Correspondence Office [id number]#1.00CD:127 [facility] Operative Reporton Operative Report [id number]#1.00CD:127 [facility] Patient Educationon 02-19-20 Patient Education Flank Pain Flank pain refers to pain that is located on the side of the body between the upper abdomen and the back. The pain may occur over a short period of time (acute ) or may be long-term or reoccurring (chronic ). It may be mild or severe. Flank pain can be caused by many things. CAUSES Some of the more common causes of flank pain include: ? Muscle strains. ? ? Muscle spasms. ? ? A disease of your spine (vertebral disk disease ). ? ? A lung infection (pneumonia ). ? ? Fluid around your lungs (pulmonary edema ). ? ? A kidney infection. ? ? Kidney stones. ? ? A very painful skin rash caused by the chickenpox virus (shingles ). ? ? Gallbladder disease. ? HOME CARE INSTRUCTIONS Home care will depend on the cause of your pain. In general, ? Rest as directed by your caregiver. ? Drink enough fluids to keep your urine clear or pale yellow. ? Only take olmg-njx-evhzbpm or prescription medicines as directed by your caregiver. Some medicines may help relieve the pain. ? Tell your caregiver about any changes in your pain. ? Follow up with your caregiver as directed. SEEK IMMEDIATE MEDICAL CARE IF: ? Your pain is not controlled with medicine. ? ? You have new or worsening symptoms. ? Your pain increases. ? ? You have abdominal pain. ? ? You have shortness of breath. ? ? You have persistent nausea or vomiting. ? ? You have swelling in your abdomen. ? ? You feel faint or pass out. ? ? You have blood in your urine. ? You have a fever or persistent symptoms for more than 2?3 days. ? You have a fever and your symptoms suddenly get worse. MAKE SURE YOU: ? Understand these instructions. ? Will watch your condition. ? Will get help right away if you are not doing well or get worse. Document Released: 10/22/2006 Document Revised: 05/25/2013 Document Reviewed: 04/14/2013 ExitCare? Patient Information ?2013 [email or web address]. [facility] Urology Office/Clinic Noteon 02-18-2021 Urology Office/Clinic Note HPI Staff Pt is here for a f/u to the ER on 02/16/21 due to right Flank pain. PRW put a right ureteral stent in place 02/14/21. CT done 02/16/21. Since the ER visit she has had a fever over 101 intermittently. Pt is still having nausea, she cant keep anything down. Pt is having some edema, pt was to start on diuretic Thursday, but has not started because she was unsure if it would interfere with the stent. Pt is having headaches. Pt is still straining her urine. Pt cannot get her pain under control. Pt states that this is her first time with stones. Pt was put on Keflex qd for 21 days and Oxybutynin from [facility] 02/14/21. Keflex was increased to TID and Phenergan 02/16/21 [facility]. BP is elevated 138/113 & 150/115. Pt was tested 3x for Covid at [facility] and all tests were neg. Dysuria: yes pain or burning Incomplete bladder emptying: Hematuria: pt is passing clots with voiding Frequency: increased since stone and stent Urgency: mild/ moderate sx with no volume Nocturia: pt is unable to sleep due to pain Stream: weak to average at times. Post void dripping: none Wearing pads/ Depends: _ Urge incontinence: none Stress incontinence: none Incontinence without Sensory Awareness: none Abdominal pain: LRQ pain- Flank pain: right side and mild left flank pain History of Present Illness Reviewed UA, CT, ER note, op report, and new pt. forms. There have been no associated fever or chills. Review of Systems PHQ Score Initial Depression Screen Score: 0 ROS - Provider Constitutional: denies weight loss, denies hot flashes. Eyes: denies eye problems. Gastrointestinal: denies nausea, denies vomiting. Cardiovascular: denies chest pain or angina. Integumentary: no dryness Musculoskeletal: denies musculoskeletal symptoms. ENMT: denies otolaryngeal symptoms. Respiratory: no shortness of breath. Heme/Lymph: denies easy bleeding tendency, denies easy bruising tendency. Psychiatric: no confusion, no anxiety. Genitourinary: denies vaginal discharge, denies incontinence, denies dysuria, denies hematuria, denies urinary frequency, denies amenorrhea, denies menorrhagia, denies abnormal bleeding, denies pelvic pain, denies genital sores, and denies decreased libido. Physical Exam Vitals & Measurements HR: 82(Peripheral) RR: 18 BP: 150/115 HT: 170.0 cm HT: 170 cm WT: 108.0 kg WT: 108 kg BMI: 37.37 General Appearance: alert , no acute distress, well nourished, well developed female. Head: normocephalic . Eyes: normal orbit and globe. ENMT: normal examination of external ears. Chest: Lungs CTA, respirations non labored . Cardiovascular: regular rate and rhythm. Abdomen: soft, non distended, no tenderness, no mass or organomegaly, no hernia. Genitourinary: bladder nonpalpable, no flank tenderness. Lymph Nodes: unremarkable palpation of the cervical area. Skin: warm, dry, no bruising. Psychiatric: cooperative, affect appropriate for age, normal judgement, euthymic mood. Assessment/Plan 1. Ureteral stricture, right (N13.5: Crossing vessel and stricture of ureter without hydronephrosis) S/p Cysto/Rt. ureteral dilation/Rt. ureteroscopy/stent placement done 02/14/2021. Pt. denies issues with the stent at this time. D/c Oxybutynin 5mg qd. Will schedule Cysto/Stent removal. The risks and benefits for this procedure have been discussed. The risks include bleeding, infection, and irritation of the bladder and urinary channel, among others. The patient, after being informed of procedural details and after questions have been answered, wishes to proceed. Full informed consent has been obtained. Will order Local anesthesia. 2. Flank pain (R10.9: Unspecified abdominal pain) Rt. seems to be from the stent. 3. Gross hematuria (R31.0: Gross hematuria) Pt. states passing blood cloths when voiding. UA today - large. 4. UTI (urinary tract infection) (N39.0: Urinary tract infection, site not specified) Pt. is currently taking Keflex 500mg TID and is to finish as directed. culture pending from the e.r. yesterday. urine looks fine today. her swelling and htn are being treated with diuretics from the er. she is seeing her family doc this afternoon I have reviewed the previous health record information and history for this pt. from Dr. Rosa. Follow-up With When Contact Information WILLIAM WHITLEY, [place], URL [address] [place] [address] [place] [address]- [phone] Additional Instructions: Patient Education Flank Pain I, Yasmin Ashford , personally scribed for Dr. Rosa on 02/18/2021 12:55:22. . Documentation recorded by the scribe, Yasmin Ashford, accurately reflects the services(s) I performed and decisions made by me. Authenticated by Dr. Rosa on 02/18/2021 13:02:05. Problem List/Past Medical History Ongoing No qualifying data Historical No qualifying data Procedure/Surgical History Ureteral stent-placement set (02/14/2021), Breast procedure, Cholecystectomy, (more content not included)... Normal [facility] Comment on above: Result Comment: Elec tronically Signed By: Ro ROSA MD\.br\Date and Time Signed: 02/18/21 13:02 EDT\.br\Electronically Co-Signed By: Yasmin Ashford MA\.br\Date and Time Co-Signed: 02/18/21 12:55 EDT CORTISOL, A.M.on 01-08-2021 CORTISOL, A.M. 0.6 mcg/dL Low [facility] Comment on above: Result Comment: Refe rence Range 8 a.m. (7-9 a.m.) Specimen: 4.0-22.0 Performed By: #### [id number], [id number] #### [facility] [address] [place] [address] Tyre Retreader: Yevgeniy Markham MD THYROID PEROXIDASE ANTIBODIE Son 01-08-2021 THYROID PEROXIDASE ANTIBODIES 1 IU/mL Normal <9 [facility] Comment on above: Order Comment: FASTI NG: UNKNOWN Performed By: #### [id number], [id number] #### [facility] [address] [place] [address] Tyre Retreader: Yevgeniy Markham MD Vital Signs Date Time Vital Sign Value Performing Clinician Facility 11-18-2023 09:19-0500 Body height 170.2 cm Skylar Coffey BOAT F[employer]ELER-MANAGER 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 Work Phone: [facility] 11-18-2023 09:19-0500 Body mass index (BMI) [Ratio] 31.2 kg/m2 Skylargarth Coffey BOAT FUELER-MANAGER 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 Work Phone: [facility] 11-18-2023 09:19-0500 Body temperature 98.71 [degF] [facility] [employer]ELER-MANAGER 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 Work Phone: [facility] 11-18-2023 09:19-0500 Body weight 90.36 kg Skylargarth Coffey BOAT FUELER-MANAGER 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 Work Phone: [facility] 11-18-2023 09:19-0500 Diastolic blood pressure 84 mm[Hg] Skylargarth Coffey BOAT FUELER-MANAGER 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 Work Phone: [facility] 11-18-2023 09:19-0500 Heart rate 96 /min Skylargarth Coffey BOAT FUELER-MANAGER 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 Work Phone: [facility] 11-18-2023 09:19-0500 SaO2% (BldA) [Mass fraction] 95 % Skylargarth Dugganuch BOAT FUELER-MANAGER 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 Work Phone: [facility] 11-18-2023 09:19-0500 Systolic blood pressure 120 mm[Hg] Skylar Coffey BOAT FUELER-MANAGER 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 Work Phone: [facility] [employer] [facility] 11-04-2023 08:49-0500 Diastolic blood pressure 69 mm[Hg] II Dania Pardo Work Phone: [facility] 11-04-2023 08:49-0500 Heart rate 89 /min II Dania Pardo Work Phone: [facility] 11-04-2023 08:49-0500 Respiratory rate 20 /min II Dania Pardo Work Phone: [facility] 11-04-2023 08:49-0500 SaO2% (BldA) [Mass fraction] 96 % II Dania Pardo Work Phone: [facility] 11-04-2023 08:49-0500 Systolic blood pressure 133 mm[Hg] II Dania Pardo Work Phone: [facility] 11-04-2023 04:28-0500 Body temperature 97.3 [degF] II Dania Pardo Work Phone: [facility] 11-04-2023 04:27-0500 Body height 177.8 cm II Dania Pardo Work Phone: [facility] 11-04-2023 04:27-0500 Body weight 90.1 kg II Dania Pardo Work Phone: [facility] 10-28-2023 20:09-0500 Diastolic blood pressure 85 mm[Hg] II Dania Pardo Work Phone: [facility] 10-28-2023 20:09-0500 Heart rate 80 /min II Dania Pardo Work Phone: [facility] 10-28-2023 20:09-0500 Respiratory rate 18 /min II Dania Pardo Work Phone: [facility] 10-28-2023 20:09-0500 SaO2% (BldA) [Mass fraction] 96 % II Dania Pardo Work Phone: [facility] 10-28-2023 20:09-0500 Systolic blood pressure 139 mm[Hg] II Dania Pardo Work Phone: [facility] 10-28-2023 15:49-0500 Body height 177.8 cm II Dania Pardo Work Phone: [facility] 10-28-2023 15:49-0500 Body temperature 98.1 [degF] II Dania Pardo Work Phone: [facility] 10-28-2023 15:49-0500 Body weight 91 kg II Dania Pardo Work Phone: [facility] 10-27-2023 09:37-0500 Body mass index (BMI) [Ratio] 29.03 kg/m2 Belem Remy [address] OF APPEALS JUDGE Work Phone: [facility] 10-27-2023 09:37-0500 Body weight 89.[address] OF APPEALS JUDGE Work Phone: [facility] 10-27-2023 09:37-0500 Diastolic blood pressure 85 mm[Hg] Belem Remy COURT OF APPEALS JUDGE Work Phone: [facility] 10-27-2023 09:37-0500 Heart rate 75 /min Belem Remy [facility] OF APPEALS JUDGE Work Phone: [facility] 10-27-2023 09:37-0500 Respiratory rate 14 /min Belem Remy [address] OF APPEALS JUDGE Work Phone: [facility] 10-27-2023 09:37-0500 SaO2% (BldA) [Mass fraction] 98 % Belem Remy COURT OF APPEALS JUDGE Work Phone: [facility] 10-27-2023 09:37-0500 Systolic blood pressure 130 mm[Hg] Belem Remy COURT OF APPEALS JUDGE Work Phone: [facility] 10-23-2023 10:49-0500 Body temperature 97.7 [degF] [facility] 10-23-2023 10:49-0500 Diastolic blood pressure 84 mm[Hg] [facility] 10-23-2023 10:49-0500 Heart rate 84 /min [facility] 10-23-2023 10:49-0500 Respiratory rate 16 /min [facility] 10-23-2023 10:49-0500 SaO2% (BldA) [Mass fraction] 95 % [facility] 10-23-2023 10:49-0500 Systolic blood pressure 133 mm[Hg] [facility] 10-23-2023 06:00-0500 Body weight 95.2 kg [facility] 10-21-2023 13:36-0500 Body height 172.72 cm [facility] 10-08-2023 18:54-0500 Diastolic blood pressure 89 mm[Hg] [facility] 10-08-2023 18:54-0500 Heart rate 74 /min [facility] 10-08-2023 18:54-0500 Respiratory rate 16 /min [facility] 10-08-2023 18:54-0500 SaO2% (BldA) [Mass fraction] 98 % [facility] 10-08-2023 18:54-0500 Systolic blood pressure 150 mm[Hg] [facility] 10-08-2023 13:12-0500 Body height 172.72 cm [facility] 10-08-2023 13:12-0500 Body temperature 98.4 [degF] [facility] 10-08-2023 13:12-0500 Body weight 88.35 kg [facility] 08-05-2023 10:06-0500 Body weight 83.[address] Work Phone: [facility] 07-27-2023 10:20-0500 Body height 172.7 cm Hamlet Zafar MD Work Phone: [facility] 07-27-2023 10:20-0500 Body temperature 99.1 [degF] Hamlet Zafar MD Work Phone: [facility] 07-27-2023 10:20-0500 Body weight 84.91 kg Hamlet Zafar MD Work Phone: [facility] 07-27-2023 10:20-0500 Diastolic blood pressure 72 mm[Hg] Hamlet Zafar MD Work Phone: [facility] 07-27-2023 10:20-0500 Heart rate 74 /min Hamlet Zafar MD Work Phone: [facility] 07-27-2023 10:20-0500 SaO2% (BldA) [Mass fraction] 97 % Hamlet Zafar MD Work Phone: [facility] 07-27-2023 10:20-0500 Systolic blood pressure 119 mm[Hg] Hamlet Zafar MD Work Phone: [facility] 07-17-2023 11:55-0400 Body height 172.[address] Work Phone: [facility] 07-17-2023 11:55-0400 Body weight 86.[address] Work Phone: [facility] 07-14-2023 10:59-0400 Body height 172.7 cm Nhi Paci BOAT FUELER.MANAGER 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 Work Phone: [facility] 07-14-2023 10:59-0400 Body weight 86.18 kg Nhi Paci BOAT FUELER.MANAGER 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 Work Phone: [facility] 07-13-2023 08:53-0400 Body height 172.7 cm Hamlet Zafar MD Work Phone: [facility] 07-13-2023 08:53-0400 Body temperature 98.4 [degF] Hamlet Zafar MD Work Phone: [facility] 07-13-2023 08:53-0400 Body weight 86.46 kg Hamlet Zafar MD Work Phone: [facility] 07-13-2023 08:53-0400 Diastolic blood pressure 64 mm[Hg] Hamlet Zafar MD Work Phone: [facility] 07-13-2023 08:53-0400 Heart rate 68 /min Hamlet Zafar MD Work Phone: [facility] 07-13-2023 08:53-0400 SaO2% (BldA) [Mass fraction] 100 % Hamlet Zafar MD Work Phone: [facility] 07-13-2023 08:53-0400 Systolic blood pressure 118 mm[Hg] Hamlet Zafar MD Work Phone: [facility] 06-26-2023 08:45-0400 Diastolic blood pressure 79 mm[Hg] Magaly Andrade MD Work Phone: [facility] 06-26-2023 08:45-0400 Heart rate 71 /min Magaly Andrade MD Work Phone: [facility] 06-26-2023 08:45-0400 Respiratory rate 16 /min Magaly Andrade MD Work Phone: [facility] 06-26-2023 08:45-0400 SaO2% (BldA) [Mass fraction] 100 % Magaly Andrade MD Work Phone: [facility] 06-26-2023 08:45-0400 Systolic blood pressure 129 mm[Hg] Magaly Andrade MD Work Phone: [facility] 06-26-2023 08:31-0400 Body temperature 97.7 [degF] Magaly Andrade MD Work Phone: [facility] 06-26-2023 07:36-0400 Body height 172.7 cm Magaly Andrade MD Work Phone: [facility] 06-26-2023 07:36-0400 Body weight 87.54 kg Magaly Andrade MD Work Phone: [facility] 06-24-2023 14:13-0400 Body weight 86.[address] Work Phone: [facility] 06-04-2023 13:09-0400 Body height 172.72 cm SANTIAGO Pardo Work Phone: [facility] 06-04-2023 11:36-0400 Diastolic blood pressure 81 mm[Hg] II Dania Pardo Work Phone: [facility] 06-04-2023 11:36-0400 Heart rate 64 /min II Dania Pardo Work Phone: [facility] 06-04-2023 11:36-0400 Respiratory rate 18 /min II Dania Pardo Work Phone: [facility] 06-04-2023 11:36-0400 SaO2% (BldA) [Mass fraction] 97 % II Dania Pardo Work Phone: [facility] 06-04-2023 11:36-0400 Systolic blood pressure 124 mm[Hg] II Dania Pardo Work Phone: [facility] 06-04-2023 08:00-0400 Body temperature 97.8 [degF] II Dania Pardo Work Phone: [facility] 06-04-2023 06:00-0400 Body weight 90 kg II Dania Pardo Work Phone: [facility] 06-03-2023 14:40-0400 Diastolic blood pressure 69 mm[Hg] II aDnia Pardo Work Phone: [facility] 06-03-2023 14:40-0400 Heart rate 101 /min II Dania Pardo Work Phone: [facility] 06-03-2023 14:40-0400 Respiratory rate 18 /min II Dania Pardo Work Phone: [facility] 06-03-2023 14:40-0400 SaO2% (BldA) [Mass fraction] 96 % II Dania Pardo Work Phone: [facility] 06-03-2023 14:40-0400 Systolic blood pressure 116 mm[Hg] II Dania Pardo Work Phone: [facility] 06-03-2023 12:16-0400 Body temperature 98.3 [degF] II Dania Pardo Work Phone: [facility] 06-03-2023 08:27-0400 Body height 172.72 cm II Dania Pardo Work Phone: [facility] 06-03-2023 08:27-0400 Body weight 89 kg II Dania Pardo Work Phone: [facility] 05-25-2023 13:45-0400 Body height 172.72 cm Amber Maame Other [employer] Other 05-25-2023 13:45-0400 Body mass index (BMI) [Ratio] 30.1 kg/m2 Amber Maame Other [employer] Other 05-25-2023 13:45-0400 Body temperature 99.6 [degF] Amber Maame Other [employer] Other 05-25-2023 13:45-0400 Body weight 89.81 kg Amber Maame Other [employer] Other 05-25-2023 13:45-0400 Diastolic blood pressure 73 mm[Hg] Amber Maame Other [employer] Other 05-25-2023 13:45-0400 Respiratory rate 18 /min Amber Maame Other [employer] Other 05-25-2023 13:45-0400 SaO2% (BldA) [Mass fraction] 96 % Amber Maame Other [employer] Other 05-25-2023 13:45-0400 Systolic blood pressure 120 mm[Hg] Amber Isabel Other [employer] Other 04-28-2023 17:01-0400 Diastolic blood pressure 68 mm[Hg] Yg James Other Phone: [facility] 04-28-2023 17:01-0400 Heart rate 70 /min Yg James Other Phone: [facility] 04-28-2023 17:01-0400 Respiratory rate 16 /min Yg James Other Phone: [facility] 04-28-2023 17:01-0400 SaO2% (BldA) [Mass fraction] 100 % Yg James Other Phone: [facility] 04-28-2023 17:01-0400 Systolic blood pressure 132 mm[Hg] Yg James Other Phone: [facility] 04-28-2023 12:20-0400 Body height 172.7 cm Yg James Other Phone: [facility] 04-28-2023 12:20-0400 Body temperature 97.88 [degF] Yg James Other Phone: [facility] 04-28-2023 12:20-0400 Body weight 86 kg Yg James Other Phone: [facility] 08-29-2022 11:34-0500 Body height 172.7 cm Foreign Monterroso PA-C Work Phone: [facility] 08-29-2022 11:34-0500 Body weight 92.99 kg Foreign Monterroso PA-C Work Phone: [facility] 08-29-2022 11:34-0500 Diastolic blood pressure 83 mm[Hg] Foreign Monterroso PA-C Work Phone: [facility] 08-29-2022 11:34-0500 Heart rate 89 /min Foreign Monterroso PA-C Work Phone: [facility] 08-29-2022 11:34-0500 SaO2% (BldA) [Mass fraction] 98 % Foreign Monterroso PA-C Work Phone: [facility] 08-29-2022 11:34-0500 Systolic blood pressure 135 mm[Hg] Foreign Monterroso PA-C Work Phone: [facility] 08-28-2022 13:20-0500 Body temperature 98.4 [degF] Chair Mary D Work Phone: [facility] 08-28-2022 13:20-0500 Diastolic blood pressure 60 mm[Hg] Chair Karen Work Phone: [facility] 08-28-2022 13:20-0500 Heart rate 81 /min Chair Mary D Work Phone: [facility] 08-28-2022 13:20-0500 Respiratory rate 18 /min Chair Mary D Work Phone: [facility] 08-28-2022 13:20-0500 SaO2% (BldA) [Mass fraction] 99 % Chair Mary D Work Phone: [facility] 08-28-2022 13:20-0500 Systolic blood pressure 123 mm[Hg] Chair Mary D Work Phone: [facility] 08-08-2022 09:37-0500 Body weight 94.35 kg Johann Echeverria MD Work Phone: [facility] 08-08-2022 09:37-0500 Heart rate 87 /min Johann Echeverria MD Work Phone: [facility] 08-08-2022 09:37-0500 Respiratory rate 16 /min Johann Echeverria MD Work Phone: [facility] 08-08-2022 09:37-0500 SaO2% (BldA) [Mass fraction] 98 % Johann Echeverria MD Work Phone: [facility] 07-04-2022 11:56-0400 Body weight 93.44 kg Johann Echeverria MD Work Phone: [facility] 07-04-2022 11:56-0400 Heart rate 86 /min Johann Echeverria MD Work Phone: [facility] 07-04-2022 11:56-0400 Respiratory rate 16 /min Johann Echeverria MD Work Phone: [facility] 07-04-2022 11:56-0400 SaO2% (BldA) [Mass fraction] 99 % Johann Echeverria MD Work Phone: [facility] 06-16-2022 09:07-0400 Body height 172.7 cm Sanford Ozuna MD Work Phone: [facility] 06-16-2022 09:07-0400 Body weight 92.99 kg Sanford Ozuna MD Work Phone: [facility] 06-16-2022 09:07-0400 Diastolic blood pressure 76 mm[Hg] Sanford Ozuna MD Work Phone: [facility] 06-16-2022 09:07-0400 Heart rate 76 /min Sanford Ozuna MD Work Phone: [facility] 06-16-2022 09:07-0400 Systolic blood pressure 139 mm[Hg] Sanford Ozuna MD Work Phone: [facility] 05-04-2022 11:00-0400 Diastolic blood pressure 86 mm[Hg] DO Marc Nguyễn Work Phone: [facility] 05-04-2022 11:00-0400 Heart rate 80 /min DO Marc Nguyễn Work Phone: [facility] 05-04-2022 11:00-0400 Respiratory rate 18 /min DO Marc Nguyễn Work Phone: [facility] 05-04-2022 11:00-0400 SaO2% (BldA) [Mass fraction] 98 % DO Marc Nguyễn Work Phone: [facility] 05-04-2022 11:00-0400 Systolic blood pressure 132 mm[Hg] DO Marc Nguyễn Work Phone: [facility] 05-04-2022 08:03-0400 Body temperature 98 [degF] DO Marc Nguyễn Work Phone: [facility] 05-04-2022 03:52-0400 Body weight 103.6 kg DO Marc Nguyễn Work Phone: [facility] 05-02-2022 13:31-0400 Body height 172.72 cm DO Marc Nguyễn Work Phone: [facility] 03-20-2022 16:37-0400 Body height 172.72 cm Yg James Work Phone: GW[facility]Dlkvxat-Mhoce [facility] Work Phone: 03-20-2022 16:37-0400 Body mass index (BMI) [Ratio] 31.63 kg/m2 Yg James Work Phone: TT-Sqvfhwn-Xvevo [facility] [address] Work Phone: 03-20-2022 16:37-0400 Body surface area Derived from formula 2.08 m2 Yg James Work Phone: QJ-Cxpgszr-Xjbms [facility] [address] Work Phone: 03-20-2022 16:37-0400 Body weight 94.35 kg Yg James Work Phone: US-Qomiqfi-Fdezt [facility] [address] Work Phone: 01-31-2022 11:13-0400 Body mass index (BMI) [Ratio] 35.58 kg/m2 Yg James Work Phone: YL-Jbuupod-Dozol [facility] [address] Work Phone: 01-31-2022 11:13-0400 Body surface area Derived from formula 2.18 m2 Yg James Work Phone: DD-Mokeawy-Wjhel [facility] [address] Work Phone: 01-31-2022 11:13-0400 Body weight 106.14 kg Yg James Work Phone: KU-Zqyyuyi-Ajllt [facility] [address] Work Phone: 12-27-2021 09:33-0400 Body temperature 98.06 [degF] Yg James Other Phone: [facility] Other Phone (unformatted): [phone] 12-27-2021 09:33-0400 Diastolic blood pressure 75 mm[Hg] Yg James Other Phone: [facility] Other Phone (unformatted): [phone] 12-27-2021 09:33-0400 Heart rate 84 /min Yg James Other Phone: [facility] Other Phone (unformatted): [phone] 12-27-2021 09:33-0400 Respiratory rate 18 /min Yg James Other Phone: [facility] Other Phone (unformatted): [phone] 12-27-2021 09:33-0400 SaO2% (BldA) [Mass fraction] 93 % Yg James Other Phone: [facility] Other Phone (unformatted): [phone] 12-27-2021 09:33-0400 Systolic blood pressure 135 mm[Hg] Yg James Other Phone: [facility] Other Phone (unformatted): [phone] 12-19-2021 09:38-0400 Body height 172.72 cm Yg James Work Phone: HT-Fqadmvq-Guxvk [facility] [address] Work Phone: 12-19-2021 09:38-0400 Body mass index (BMI) [Ratio] 37.4 kg/m2 Yg James Work Phone: CG-Zjdbwij-Jtfvk [facility] [address] Work Phone: 12-19-2021 09:38-0400 Body surface area Derived from formula 2.23 m2 Yg James Work Phone: AQ-Qvzficn-Lzofe [facility] [address] Work Phone: 12-19-2021 09:38-0400 Body weight 111.59 kg Yg James Work Phone: XS-Znpgano-Kybyv [facility] [address] Work Phone: 12-19-2021 09:38-0400 Diastolic blood pressure 79 mm[Hg] Yg James Work Phone: ID-Kjirnft-Qfvxd [facility] [address] Work Phone: 12-19-2021 09:38-0400 Heart rate 86 /min Yg James Work Phone: EQ-Zhtkewd-Ljmsl [facility] [address] Work Phone: 12-19-2021 09:38-0400 SaO2% (BldA) [Mass fraction] 98 % Yg James Work Phone: QN-Sfminih-Gpseh [facility] [address] Work Phone: 12-19-2021 09:38-0400 Systolic blood pressure 131 mm[Hg] Yg James Work Phone: FT-Rkclipj-Uivzf [facility] [address] Work Phone: 12-12-2021 11:29-0400 Body mass index (BMI) [Ratio] 38.62 kg/m2 Yg James Work Phone: YY-Tocxbjo-Rxbfg [facility] [address] Work Phone: 12-12-2021 11:29-0400 Body surface area Derived from formula 2.26 m2 Yg James Work Phone: UF-Uxmoyyl-Jpeqp [facility] [address] Work Phone: 12-12-2021 11:29-0400 Body weight 115.21 kg Yg James Work Phone: CK-Pucznbd-Vyiih [facility] [address] Work Phone: 12-05-2021 08:09-0400 0 1 Yg James Work Phone: [facility] A2470 DO Work Phone: Comment on above: [facility] 07-29-2021 07:51-0500 7 1 Yg Chinedu Erika Work Phone: [facility] A2470 DO Work Phone: Comment on above: [facility] 07-15-2021 13:53-0400 Body height 172.72 cm Yg Chinedu Erika Work Phone: GL-Yntoyyepqs-Vbvesd ke [facility] [address] Work Phone: 07-15-2021 13:53-0400 Body mass index (BMI) [Ratio] 40.6 kg/m2 Yg James Work Phone: LR-Eytyzpwprl-Vwqhdj ke [facility] [address] Work Phone: 07-15-2021 13:53-0400 Body surface area Derived from formula 2.31 m2 Yg Chinedu Erika Work Phone: LO-Uufizmvust-Seczxp ke [facility] [address] Work Phone: 07-15-2021 13:53-0400 Body temperature 97.3 [degF] Yg Chinedu Erika Work Phone: CA-Qziyjylrrq-Hwwoor ke [facility] [address] Work Phone: 07-15-2021 13:53-0400 Body weight 121.11 kg Yg Che Erika Work Phone: OV-Pvmdnmravy-Uejcii ke [facility] [address] Work Phone: 07-15-2021 13:53-0400 Diastolic blood pressure 90 mm[Hg] Yg James Work Phone: JD-Wfenbwxczg-Syqovt ke [facility] [address] Work Phone: 07-15-2021 13:53-0400 Heart rate 71 /min Yg James Work Phone: [facility] 200 Work Phone: 07-15-2021 13:53-0400 SaO2% (BldA) [Mass fraction] 98 % Yg James Work Phone: [facility] [address] Work Phone: 07-15-2021 13:53-0400 Systolic blood pressure 130 mm[Hg] Yg James Work Phone: [facility] 200 Work Phone: 05-30-2021 15:14-0400 Body temperature 97.16 [degF] Sean Ruiz Other Phone: [facility] Other Phone (unformatted): [phone] 05-30-2021 15:14-0400 Diastolic blood pressure 70 mm[Hg] Sean Ruiz Other Phone: [facility] Other Phone (unformatted): [phone] 05-30-2021 15:14-0400 Heart rate 71 /min Sean Ruiz Other Phone: [facility] Other Phone (unformatted): [phone] 05-30-2021 15:14-0400 Respiratory rate 18 /min Sean Ruiz Other Phone: [facility] Other Phone (unformatted): [phone] 05-30-2021 15:14-0400 SaO2% (BldA) [Mass fraction] 97 % Sean Ruiz Other Phone: [facility] Other Phone (unformatted): [phone] 05-30-2021 15:14-0400 Systolic blood pressure 137 mm[Hg] Sean Ruiz Other Phone: [facility] Other Phone (unformatted): [phone] 05-22-2021 08:45-0400 Body height 172.72 cm Sean J Ruiz Work Phone: FF-Cvbuoai-Hwbuq MAC2 [id number] Work Phone: 05-22-2021 08:45-0400 Body mass index (BMI) [Ratio] 39.53 kg/m2 Sean Ruiz Work Phone: [id number]-Tbxiz [id number] Work Phone: 05-22-2021 08:45-0400 Body surface area Derived from formula 2.28 m2 Sean Ruiz Work Phone: [id number]-Nridm [id number] Work Phone: 05-22-2021 08:45-0400 Body weight 117.94 kg Sean Ruiz Work Phone: OF-Ujcqgpb-Bqfin [id number] Work Phone: Encounters Encounter Date Encounter Type Care Provider Facility Start: 11-18-2023 End: 11-18-2023 ambulatory [facility] Start: 11-18-2023 End: 11-18-2023 Office outpatient new 45 minutes [facility] BOAT FUELER-MANAGER 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 Work Phone: [facility] Internal Medicine - Family Medicine Comment on above: Encounter for medica l examination to establish care (Primary Dx); Pleural effusion, right; Community acquired bacterial pneumonia; C. difficile colitis; Acute gastric erosion; Partial gastric outlet obstruction Start: 11-18-2023 End: 11-18-2023 Patient encounter status [facility] BOAT FUELER-MANAGER 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 Work Phone: [facility] Work Phone: Start: 11-16-2023 Telephone encounter Yenny Cast RN General Surgery Start: 11-12-2023 End: 11-12-2023 ambulatory KAEL POLK Not Available Start: 11-06-2023 End: 11-06-2023 ambulatory DANIA PARDO II Facility:[facility] Start: 11-06-2023 End: 11-06-2023 ambulatory Chris Dale MD Work Phone: General Surgery Comment on above: FTT (failure to thri ve) in adult (Primary Dx) Start: 11-06-2023 End: 11-06-2023 Telemedicine consultation with patient Chris Dale MD Work Phone: [facility] Start: 11-05-2023 End: 11-05-2023 ambulatory DANIA PARDO II Facility:[facility] Start: 11-05-2023 End: 11-06-[address] [facility] Start: 11-04-2023 ambulatory Magaly Andrade MD Work Phone: Gastroenterology Comment on above: test results for hos pital stay Start: 11-04-2023 Telephone encounter Hamlet zavala MD Work Phone: Gastroenterology Comment on above: Symptoms Start: 11-04-2023 End: 11-04-2023 Emergency department patient visit Dania Pardo Facility:[facility] Start: 11-04-2023 End: 11-04-2023 Emergency department patient visit II Dania Pardo Work Phone: [facility] Work Phone: Start: 11-03-2023 Telephone encounter Hamlet zavala MD Work Phone: Gastroenterology Comment on above: qiestion about Gen S urg appt Start: 11-02-2023 Telephone encounter Cgrt Portia duran Work Phone: Gastroenterology Comment on above: Question Abdominal Pain Start: 11-02-2023 End: 11-02-2023 ambulatory YANCI AGUILAR Not Available Start: 10-30-2023 End: 10-30-2023 ambulatory ARGENIS CRUZ Not Available Start: 10-28-2023 End: 10-28-2023 Emergency department patient visit Dania Pardo Facility:[facility] Start: 10-28-2023 End: 10-28-2023 Emergency department patient visit II Dania Pardo Work Phone: [facility] Work Phone: Start: 10-28-2023 End: 10-28-2023 ambulatory Cecil Jerson BOAT FUELER.MANAGER 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 Work Phone: Pain Management Comment on above: Chronic pain syndrom e (Primary Dx); Generalized abdominal pain; Neuralgia and neuritis; H/O gastric bypass Start: 10-28-2023 End: 10-28-2023 Nutrition therapy Hamlet Zafar MD Work Phone: Gastroenterology Comment on above: Malnutrition of mode rate degree (HCC) (Primary Dx); Impaired hydration; Chronic nausea; Chronic diarrhea; History of Gelacio-en-Y gastric bypass Start: 10-28-2023 End: 10-28-2023 Telemedicine consultation with patient Cecil Schneider APRN.MANAGER 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 Work Phone: [facility] Start: 10-27-2023 Chart abstracting Belem adam NP Work Phone: [facility] Start: 10-27-2023 End: 10-28-[address] [facility] Start: 10-27-2023 End: 10-27-2023 ambulatory BELEM REMY Not Available Start: 10-27-2023 End: 10-27-2023 Office outpatient visit [address] [employer] JUDGE Work Phone: [facility] Comment on above: Projectile vomiting with nausea (Primary Dx); Functional diarrhea; Poor appetite; PIC line (peripherally inserted central catheter) flush; Moderate episode of recurrent major depressive disorder (HCC) (CMS/HCC); Anxiety Start: 10-26-2023 End: 10-26-2023 ambulatory Stepan Fuentes Other [employer] Other Start: 10-26-2023 Telephone encounter Stepan Melendez [facility] Start: 10-23-2023 Non-patient / Non-visit [facility] Infectious Disease Work Phone: Start: 10-22-2023 Refill Cgrt Dietitian Work Phone: Gastroenterology Comment on above: Refill Request Start: 10-16-2023 Telephone encounter Hamlet zavala MD Work Phone: Gastroenterology Comment on above: Clinical Update (and missed appt) Start: 10-14-2023 Chart abstracting Cgrt Dietiti ramon Work Phone: Gastroenterology Start: 10-08-2023 End: 10-23-2023 Evaluation and management of inpatient David Bejarano Facility:[facility] Start: 10-08-2023 Non-patient / Non-visit [facility] Out[facility] Work Phone: Start: 10-07-2023 Telephone encounter Cgrt Portia duran Work Phone: Gastroenterology Comment on above: Results (DUE: 024) Start: 10-07-2023 End: 10-07-2023 ambulatory BELEM REMY Not Available Start: 10-06-2023 End: 10-06-2023 ambulatory DANIA PARDO Facility:[facility] Start: 10-06-2023 End: 10-06-2023 ambulatory DANIA PARDO II Facility:[facility] Start: 10-01-2023 End: 10-01-2023 ambulatory CHRISTINA BARRON Facility:[facility] Start: 09-25-2023 End: 09-25-2023 Emergency department patient visit DANIADEBORAH PARDO [facility] Start: 09-21-2023 End: 09-21-2023 ambulatory YANCI AGUILAR Not Available Start: 09-17-2023 End: 09-17-2023 ambulatory SEAN RUIZ Facility:[facility] Start: 09-15-2023 End: 09-15-2023 ambulatory YANCI AGUILAR Not Available Start: 08-27-2023 End: 08-28-2023 ambulatory SEAN RUIZ Facility:[facility] Start: 08-27-2023 End: 08-27-2023 Admission to same day surgery center Magaly Andrade MD Work Phone: Gastroenterology Comment on above: Dumping syndrome (Pr imary Dx); Complications of bariatric procedures; History of Gelacio-en-Y gastric bypass; Complications of gastric bypass surgery Start: 08-27-2023 E-mail encounter taya sanchez caregiver Carmine Dillonl RD Work Phone: [facility] Start: 08-27-2023 End: 08-27-2023 Nutrition therapy Carmine Dillonl RD Work Phone: Gastroenterology Comment on above: nutrition recap Malnutrition of mode rate degree (HCC) (Primary Dx) Start: 08-27-2023 End: 08-27-2023 ambulatory [facility] Facility:[facility] Start: 08-27-2023 End: 08-27-2023 Telemedicine consultation with patient Magaly Bravo Lupe WHITLEY Work Phone: [facility] Start: 08-26-2023 End: 08-26-2023 ambulatory HARRY Sanchez KINSEY Not Available Start: 08-26-2023 E-mail encounter taya sanchez caregiver Carmine Dunn Igel RD Work Phone: [facility] Start: 08-26-2023 Patient encounter procedure Carmine Dillonl RD Work Phone: Gastroenterology Comment on above: nutrition appointmen t with Dr. Zafar Start: 08-24-2023 Telephone encounter Hamlet zavala MD Work Phone: Gastroenterology Comment on above: supplies Start: 08-19-2023 Telephone encounter Hamlet zavala MD Work Phone: Gastroenterology Comment on above: Patient Question Start: 08-13-2023 End: 08-13-2023 Evaluation and management of inpatient [facility] Facility:[facility] Start: 08-07-2023 End: 08-17-2023 Evaluation and management of inpatient [facility] Facility:[facility] Start: 08-05-2023 End: 08-05-2023 ambulatory Nhi Hinojosa APRN.MANAGER 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 Work Phone: Gastroenterology Comment on above: Care plan Start: 08-05-2023 End: 08-05-2023 Nutrition therapy [address]aima Cary RD Work Phone: Nutrition Therapy Comment on above: Dietary counseling a nd surveillance (Primary Dx); Malnutrition of mild degree (HCC); Diarrhea, unspecified type Start: 08-05-2023 End: 08-05-2023 Telemedicine consultation with patient Moraima Cary RD Work Phone: [facility] Start: 08-04-2023 End: 08-04-2023 Orders Only Johann Echeverria MD Work Phone: Pain Management Comment on above: Chronic pain syndrom e (Primary Dx) Results, Lab Start: 08-03-2023 End: 08-04-2023 ambulatory [facility] Facility:[facility] Start: 08-03-2023 End: 08-03-2023 Patient encounter procedure Cecil Schneider APRN.MANAGER 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 Work Phone: Pain Management Comment on above: Abdominal wall pain in left upper quadrant Start: 07-31-2023 End: 07-31-2023 ambulatory Hamlet Zafar MD Work Phone: Gastroenterology Comment on above: Short term disabilit y Start: 07-31-2023 Nutrition therapy Hamlet preston MD Work Phone: Gastroenterology Comment on above: Malnutrition of mild degree (HCC) (Primary Dx) Start: 07-30-2023 Telephone encounter Marissa Deleon RN [facility] stro[facility]ology Comment on above: Appointment Start: 07-29-2023 End: 07-29-2023 ambulatory SANFORD OZUNA Facility:[facility] Start: 07-29-2023 End: 07-29-2023 Telemedicine consultation with patient Sanford Ozuna MD Work Phone: [facility] Start: 07-29-2023 End: 07-29-2023 ambulatory Sanford Ozuna MD Work Phone: Endocrinology BMI Comment on above: Diarrhea, unspecifie d type (Primary Dx); Nausea Start: 07-29-2023 Telephone encounter Tosha duran Work Phone: Gastroenterology Comment on above: short term disabilit y paperwork Start: 07-27-2023 End: 07-27-2023 ambulatory [facility] Facility:[facility] Start: 07-27-2023 End: 07-27-2023 Patient encounter procedure Hamlet Zafar MD Work Phone: Gastroenterology Comment on above: Malnutrition of mild degree (HCC) (Primary Dx); Chronic vomiting; Pelvic floor weakness; S/P gastric bypass; Chronic constipation with overflow; Abdominal wall pain in left upper quadrant Start: 07-27-2023 End: 07-27-2023 ambulatory Cgrt Dietitian Work Phone: [facility] Start: 07-27-2023 End: 07-27-2023 Nutrition therapy Cgrt Dietitian Work Phone: Gastroenterology Comment on above: Nutrition Assessment Start: 07-21-2023 Chart abstracting Cgrt Dietiti an Work Phone: Gastroenterology Start: 07-20-2023 End: 07-20-2023 ambulatory [facility] Facility:[facility] Start: 07-20-2023 End: 07-20-2023 Nutrition therapy Maged Goddard MD Work Phone: Gastroenterology Comment on above: Moderate protein-delmy orie malnutrition (HCC) (Primary Dx) Start: 07-20-2023 End: 07-20-2023 Telemedicine consultation with patient Maged Goddard MD Work Phone: [facility] Start: 07-17-2023 End: 07-17-2023 ambulatory Nhi Hinojosa BOAT FUELER.MANAGER 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 Work Phone: [facility] Start: 07-17-2023 Follow-up encounter Nhi bland BOAT FUELER.MANAGER 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 Work Phone: Gastroenterology Comment on above: Follow up Start: 07-17-2023 End: 07-17-[address] Work Phone: Gastroenterology Comment on above: S/P gastric bypass ( Primary Dx); Impaired intestinal absorption; Moderate protein-calorie malnutrition (HCC); Dietary counseling and surveillance Start: 07-17-2023 End: 07-17-2023 Telemedicine consultation with patient Sofie Perales RD Work Phone: [facility] Start: 07-14-2023 End: 07-14-2023 ambulatory [facility] Facility:[facility] Start: 07-14-2023 End: 07-14-2023 Admission to same day surgery center Nhi Guallpa Maritza JOINER Work Phone: Gastroenterology Comment on above: Complications of gas tric bypass surgery (Primary Dx); Dumping syndrome; Diarrhea, unspecified type; History of sleeve gastrectomy; History of Gelacio-en-Y gastric bypass; Overweight with body mass index (BMI) of 28 to 28.9 in adult; Encounter for weight management Start: 07-14-2023 End: 07-14-2023 Telemedicine consultation with patient Nhi Hinojosa MARISEL Work Phone: [facility] Start: 07-13-2023 End: 07-13-2023 Patient encounter procedure Anabelle Potter APRN.CNP Work Phone: [facility] Comment on above: Intestinal malabsorp tion, unspecified type (Primary Dx) Diarrhea due to quinton bsorption (Primary Dx); Malnutrition of mild degree (HCC); Status post gastric surgery; Incontinence of feces with fecal urgency Start: 07-13-2023 End: 07-14-2023 ambulatory [facility] Facility:[facility] Start: 07-13-2023 End: 07-13-2023 ambulatory Anabelle Potter APRN.CNP Work Phone: Colorectal Surgery Comment on above: Manometry Start: 07-08-2023 Telephone encounter Jorge L fam PA-C Work Phone: Gastroenterology Start: 07-03-2023 Telephone encounter Sanford higgins MD Work Phone: Endocrinology BMI Comment on above: TPN Start Start: 07-03-2023 End: 07-03-2023 ambulatory [facility] Facility:[facility] Start: 07-01-2023 End: 07-01-2023 ambulatory [facility] Facility:[facility] Start: 07-01-2023 End: 07-01-2023 ambulatory Jorge L Saha PA-C Work Phone: Gastroenterology Comment on above: Gastric bypass statu s for obesity; Iron deficiency anemia, unspecified iron deficiency anemia type; Diarrhea, unspecified type Start: 07-01-2023 End: 07-01-2023 Telemedicine consultation with patient Jorge L Saha PA-C Work Phone: [facility] Start: 06-26-2023 End: 06-26-2023 ambulatory SEAN RUIZ Facility:[facility] Start: 06-26-2023 End: 06-26-2023 Subsequent hospital visit by physician Magaly Andrade MD Work Phone: Gastroenterology Comment on above: Diarrhea, unspecifie d type [R19.7] Start: 06-24-2023 End: 06-24-[address] Work Phone: Gastroenterology Comment on above: Diarrhea, unspecifie d type (Primary Dx) Start: 06-24-2023 End: 06-24-2023 Telemedicine consultation with patient Sera Aman TRUONG Work Phone: [facility] Start: 06-19-2023 Telephone encounter Esthela Last RN Gastroenterology Comment on above: Appointment Confirma tion Start: 06-15-2023 End: 06-15-2023 ambulatory SANFORD OZUNA Facility:[facility] Start: 06-15-2023 End: 06-15-2023 ambulatory Sanford Ozuna MD Work Phone: Endocrinology BMI Comment on above: History of Gelacio-en-Y gastric bypass (Primary Dx); Diarrhea, unspecified type Start: 06-15-2023 End: 06-15-2023 Telemedicine consultation with patient Sanford Ozuna MD Work Phone: [facility] Start: 06-15-2023 Telephone encounter Sanford higgins MD Work Phone: Endocrinology BMI Start: 06-11-2023 End: 06-12-2023 ambulatory SEAN RUIZ Facility:[facility] Start: 06-03-2023 End: 06-04-2023 Evaluation and management of inpatient Tavares Prince Facility:[facility] Start: 06-03-2023 End: 06-04-2023 Evaluation and management of inpatient SANTIAGO Pardo Work Phone: [facility] [place] [facility] Work Phone: Start: 06-02-2023 End: 06-02-2023 ambulatory Maged Goddard MD Work Phone: Gastroenterology Comment on above: Diarrhea, unspecifie d type (Primary Dx); Chronic pancreatitis, unspecified pancreatitis type (HCC) Start: 06-02-2023 End: 06-02-2023 Telemedicine consultation with patient Maged Goddard MD Work Phone: [facility] Start: 05-25-2023 End: 05-25-2023 ambulatory Amber Isabel Other [employer] Other Start: 05-25-2023 Office outpatient visit 15 minutes Amber Isabel [facility] [place] Start: 05-19-2023 End: 05-19-2023 ambulatory Sanford Ozuna MD Work Phone: General Surgery Comment on above: Diarrhea, unspecifie d type (Primary Dx) Start: 05-19-2023 End: 05-19-2023 Telemedicine consultation with patient Sanford Ozuna MD Work Phone: [facility] Start: 05-15-2023 ambulatory Keysha bay APRN.MANAGER 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 Work Phone: Gastroenterology Start: 05-13-2023 Telephone encounter Sanford higgins MD Work Phone: General Surgery Comment on above: Received Outside Med ical Records (Office Note [facility]/ Dr. Kael Fuentes) Start: 04-30-2023 ambulatory Sanford flood MD Work Phone: [facility] Start: 04-30-2023 Patient encounter procedure Sanford Ozuna MD Work Phone: Endocrinology BMI Comment on above: Referral needed Start: 04-28-2023 End: 04-28-2023 Emergency department patient visit [facility] Start: 04-27-2023 ambulatory Sanford flood MD Work Phone: Endocrinology BMI Comment on above: Test results Start: 04-23-2023 Telephone encounter Sanford higgins MD Work Phone: Endocrinology BMI Comment on above: Patient Question (SI THOMAS Treatment) Start: 04-23-2023 End: 04-23-2023 ambulatory XIN LUKESIC [facility] Start: 04-21-2023 End: 04-23-2023 ambulatory MAIDANA ABDULKADIR Facility:[facility] Start: 04-21-2023 End: 04-21-2023 ambulatory [facility] Facility:[facility] Start: 04-13-2023 Telephone encounter Sanford higgins MD Work Phone: Endocrinology BMI Comment on above: Patient Update Start: 04-10-2023 Telephone encounter Frances Ko cas, APRN.MANAGER 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 Work Phone: [facility] Provider Adult Comment on above: Schedule Surgery Start: 04-10-2023 End: 04-10-2023 ambulatory ANTHONY YAKO Facility:[facility] Start: 04-09-2023 End: 04-09-2023 ambulatory MOHAMAD KALASH Facility:[facility] Start: 04-06-2023 End: 04-06-2023 ambulatory Skip Calderon MD Work Phone: [facility] Gastroenterology [facility] Comment on above: Results Start: 04-06-2023 End: 04-06-2023 Patient encounter procedure Skip Calderon MD Work Phone: [facility] Start: 04-06-2023 End: 04-06-2023 ambulatory [facility] Facility:[facility] Start: 04-03-2023 End: 04-03-2023 ambulatory SANFORD OZUNA Facility:[facility] Start: 04-03-2023 End: 04-03-2023 Nursing evaluation of patient and report Nurse Delma Gauthier Work Phone: [facility] Gastroenterology Karon Abrahan Comment on above: Gastric bypass statu s for obesity (Primary Dx); Iron deficiency anemia, unspecified iron deficiency anemia type; Diarrhea, unspecified type Start: 04-02-2023 End: 04-02-2023 ambulatory SANFORD OZUNA Facility:[facility] Start: 04-02-2023 End: 04-02-2023 ambulatory SANFORD OZUNA Facility:[facility] Start: 04-02-2023 End: 04-02-2023 ambulatory Sanford Ozuna MD Work Phone: General Surgery Comment on above: Gastric bypass statu s for obesity (Primary Dx); Iron deficiency anemia, unspecified iron deficiency anemia type; Diarrhea, unspecified type Start: 04-02-2023 End: 04-02-2023 Telemedicine consultation with patient Sanford Ozuna MD Work Phone: [facility] Start: 03-28-2023 Telephone encounter Sanford higgins MD Work Phone: [facility] Provider Adult Comment on above: Results Start: 03-27-2023 End: 03-27-2023 ambulatory GRETEL ROPER Facility:[facility] Start: 03-11-2023 ambulatory Sanford flood MD Work Phone: Endocrinology BMI Comment on above: Digestive issues Start: 01-19-2023 ambulatory Yg James Facility: [facility] Start: 12-11-2022 Refill Gretel Roper BOAT FUELER.MANAGER 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 Work Phone: Endocrinology BMI Comment on above: Refill Request Start: 11-19-2022 End: 11-20-[address] DANIA PARDO Facility: Start: 11-17-2022 End: 11-17-2022 ambulatory SANFORD OZUNA Facility:[facility] Start: 11-17-2022 End: 11-17-2022 ambulatory Sanford Ozuna MD Work Phone: Endocrinology BMI Comment on above: Gastric bypass statu s for obesity (Primary Dx) Start: 11-17-2022 End: 11-17-2022 Telemedicine consultation with patient Sanford Ozuna MD Work Phone: [facility] Start: 10-04-2022 Telephone encounter Sean kramer DO Work Phone: NOC Comment on above: Follow Up Phone Call (Post Discharge F/U - attempt made. No answer.) Start: 09-29-2022 Letter encounter Reynold miles MD Work Phone: [facility] Start: 09-28-2022 End: 09-30-2022 Evaluation and management of inpatient Ángel GARCIA Facility:[facility] Start: 09-24-2022 Telephone encounter Aubree pelletier RN Work Phone: Endocrinology BMI Comment on above: Diarrhea Start: 09-22-2022 End: 09-22-2022 ambulatory Regina Caren BOAT FUELER.MANAGER 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 Work Phone: Hematology/Oncology Comment on above: 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) Start: 09-22-2022 End: 09-22-2022 Telemedicine consultation with patient Regina Caren BOAT FUELER.MANAGER 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 Work Phone: [facility] Start: 09-19-2022 Refill Gretel Roper BOAT FUELER.MANAGER 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 Work Phone: Endocrinology BMI Comment on above: Refill Request Start: 09-18-2022 Telephone encounter Aubree pelletier RN Work Phone: Endocrinology BMI Comment on above: FMLA Paperwork Start: 09-17-2022 End: 09-17-2022 Evaluation and management of inpatient SANFORD OZUNA Facility:[facility] Start: 09-15-2022 End: 09-21-2022 Evaluation and management of inpatient LASHAWN HALL Facility:[facility] Start: 09-10-2022 Refill Sanford flood MD Work Phone: Endocrinology BMI Start: 09-09-2022 End: 09-09-2022 ambulatory NONE LISTED REQUEST Facility:[facility] Start: 09-04-2022 ambulatory Aubree Lopez RN Work Phone: Endocrinology BMI Comment on above: CBC Results Start: 09-04-2022 E-mail encounter fro m caregiver Aubree Lopez RN Work Phone: [facility] Start: 09-03-2022 Telephone encounter Sanford higgins MD Work Phone: Endocrinology BMI Comment on above: Diarrhea Start: 09-01-2022 End: 09-01-[address] DOCTOR TIDWELL Facility: Start: 08-29-2022 End: 08-29-2022 Social Work [facility] Hematology/Oncology Comment on above: Muscle spasm (Primar y Dx) Hospital discharge f ollow-up [Z09] Start: 08-28-2022 End: 08-28-2022 ambulatory Chair Tyler Jones Work Phone: Hematology/Oncology Comment on above: 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) Start: 08-25-2022 End: 08-25-[address] DOCTOR SANCHEZ Facility: Start: 08-19-2022 Telephone encounter Sanford higgins MD Work Phone: Endocrinology BMI Comment on above: Medication Problem ( Pain medication) Start: 08-18-2022 ambulatory Johann Perry am, MD Work Phone: Pain Management Comment on above: Prior authorization needed for meds Pain meds Start: 08-18-2022 Telephone encounter Aubree pelletier RN Work Phone: Endocrinology BMI Comment on above: Medication Problem ( Prior Authorization needed) Benefits Investigati on pre-auth information Start: 08-14-2022 End: 08-15-2022 ambulatory Ángel GARCIA Facility:[facility] Start: 08-13-2022 Telephone encounter Sanford higgins MD Work Phone: Endocrinology BMI Comment on above: Results Start: 08-12-2022 ambulatory Parvin Griffin MD Work Phone: Thoracic Surgery Comment on above: Final Pathology Repo rt Start: 08-12-2022 E-mail encounter fro m caregiver Parvin Griffin MD Work Phone: [facility] Start: 08-12-2022 Telephone encounter Sanford higgins MD Work Phone: General Surgery Comment on above: Misc. Labs [facility] Start: 08-11-2022 End: 08-14-2022 Evaluation and management of inpatient [facility] Facility:[facility] Start: 08-11-2022 End: 08-12-2022 Emergency department patient visit [facility] Facility:[facility] Start: 08-11-2022 Orders Only Sanford flood MD Work Phone: Endocrinology BMI Comment on above: Patient Update Abdominal Pain Start: 08-08-2022 ambulatory Johann Perry am, MD Work Phone: Pain Management Comment on above: Need pain meds Start: 08-08-2022 Telephone encounter Deana Higgins RN NOC Comment on above: Follow Up Phone Call (Post Discharge F/U - attempt made. No answer. //) Follow Up Phone Call Medication Problem Start: 08-08-2022 End: 08-08-2022 Patient encounter procedure Johann Echeverria MD Work Phone: Pain Management Comment on above: Chronic pain syndrom e (Primary Dx); Diarrhea due to malabsorption; H/O gastric bypass; Generalized abdominal pain; Intercostal neuralgia; Encounter for therapeutic drug level monitoring Start: 08-07-2022 ambulatory Sanford flood MD Work Phone: Endocrinology BMI Comment on above: Sorry 2nd message Start: 08-07-2022 Follow-up encounter Sanford higgins MD Work Phone: Endocrinology BMI Comment on above: Follow up Start: 08-05-2022 Telephone encounter Johann herman MD Work Phone: Pain Management Comment on above: Appointment Start: 08-01-2022 Orders Only Sanford flood MD Work Phone: Endocrinology BMI Comment on above: 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) Start: 07-31-2022 ambulatory Johann Perry am, MD Work Phone: Pain Management Comment on above: Paxcil Start: 07-30-2022 Follow-up encounter Parvin cheney MD Work Phone: Thoracic Surgery Comment on above: Hospital discharge f ollow-up (Primary Dx) Start: 07-30-2022 Telephone encounter Johann herman MD Work Phone: Pain Management Comment on above: Clinical Update Start: 07-29-2022 Telephone encounter Sanford higgins MD Work Phone: General Surgery Comment on above: Results Start: 07-29-2022 Encounter for other preprocedural examination SANFORD OZUNA [facility] Start: 07-29-2022 End: 08-04-2022 Evaluation and management of inpatient SANFORD OZUNA Facility:[facility] Start: 07-28-2022 End: 07-28-[address] DOCTOR TIDWELL Facility: Start: 07-24-2022 Telephone encounter Sanford higgins MD Work Phone: Endocrinology BMI Comment on above: Picc Occlusion Start: 07-16-2022 ambulatory Sanford flood MD Work Phone: Endocrinology BMI Comment on above: Infusions Start: 07-15-2022 Telephone encounter Sanford higgins MD Work Phone: General Surgery Comment on above: Received Outside Med ical Records Start: 07-11-2022 End: 07-11-2022 ambulatory Parvin Griffin MD Work Phone: Thoracic Surgery Comment on above: Jarred ulcer, chron ic (Primary Dx) Start: 07-11-2022 End: 07-11-2022 Telemedicine consultation with patient Parvin Griffin MD Work Phone: [facility] Start: 07-09-2022 ambulatory Johann Perry am, MD Work Phone: Pain Management Comment on above: Medicine Start: 07-08-2022 ambulatory Sanford flood MD Work Phone: Endocrinology BMI Comment on above: Opened In Error Refill Start: 07-08-2022 Telephone encounter Deana Higgins RN NOC Comment on above: Follow Up Phone Call (Post Discharge F/U - attempt made. No answer. ) Start: 07-07-2022 End: 07-07-[address] DOCTOR TIDWELL Facility:[facility] Start: 07-07-2022 Telephone encounter Johann herman MD Work Phone: Pain Management Comment on above: pre-auth Start: 07-04-2022 End: 07-04-2022 Patient encounter procedure Johann Echeverria MD Work Phone: Pain Management Comment on above: History of Gelacio-en-Y gastric bypass (Primary Dx); Chronic prescription opiate use; Anastomotic ulcer; Intercostal neuralgia; Neuralgia and neuritis; Generalized abdominal pain; Visceral hyperalgesia Start: 06-25-2022 End: 07-01-2022 Evaluation and management of inpatient SANFORD OZUNA Facility:[facility] Start: 06-25-2022 Telephone encounter Aubree pelletier RN Work Phone: Endocrinology BMI Comment on above: Hospital Admission Pain Start: 06-20-2022 Telephone encounter Sanford higgins MD Work Phone: General Surgery Comment on above: FMLA Paperwork Start: 06-19-2022 ambulatory Sanford flood MD Work Phone: Endocrinology BMI Comment on above: 07/31/2022 (GJ rosemary ion) Start: 06-19-2022 Preprocedural examination done Sanford Ozuna MD Work Phone: [facility] Provider Adult Start: 06-19-2022 Telephone encounter Aubree pelletier RN Work Phone: Endocrinology BMI Comment on above: Hospital Admission ( TPN) Start: 06-18-2022 End: 06-18-2022 ambulatory SEAN RUIZ [facility] Start: 06-16-2022 End: 06-18-2022 ambulatory JANY FUENTES [facility] Start: 06-16-2022 End: 06-16-2022 Patient encounter procedure Sanford Ozuna MD Work Phone: Endocrinology BMI Comment on above: Adverse effect of tr eatment, initial encounter (Primary Dx); Marginal ulcer; Chronic prescription opiate use Start: 06-04-2022 Telephone encounter Sanford higgins MD Work Phone: General Surgery Comment on above: Received Outside Med ical Records Start: 05-27-2022 AUDIT Yg James Work Phone: RS-Yamfysh-Rngpy [id number] Work Phone: Start: 05-09-2022 Postop follow up vis it related to original px Yg James Work Phone: DK-Bapebvo-Yimjz [id number] Work Phone: Start: 05-02-2022 Postop follow up vis it related to original px Yg James Work Phone: VF-Osfjidl-Demzk [id number] Work Phone: Start: 04-29-2022 End: 05-04-2022 Evaluation and management of inpatient DO Marc Nguyễn Work Phone: [facility] [place] [facility] Start: 04-25-2022 AUDIT Yg James Work Phone: JK-Omdaoih-Zclpl [id number] Work Phone: Start: 04-15-2022 AUDIT Yg James Work Phone: [facility] Work Phone: Start: 04-11-2022 Telephone encounter Yg Watson ace Work Phone: [facility] Work Phone: Start: 03-21-2022 Current tobacco non-user cad cap copd pv dm Yg James Work Phone: CD-Dxhkpes-Zrkpm [id number] Work Phone: Start: 01-31-2022 Postop follow up vis it related to original px Yg James Work Phone: QV-Vgnyxbk-Iscmz [facility] Work Phone: Start: 01-31-2022 LYNETTE, Provider : Brittany Bose, Status: Pen, Time: 11:15 AM Yg James Work Phone: MW-Tphwakv-Kgiofcs [address] [facility] Work Phone: Start: 01-30-2022 Patient encounter procedure Yg James Work Phone: XN-Kzfcqoa-Jjxbuys [address] [facility] Work Phone: Start: 01-06-2022 Postop follow up vis it related to original px Yg James Work Phone: IG-Jnonmjj-Kcpqr [id number] Work Phone: Start: 12-31-2021 Telephone encounter Yg Watson ace Work Phone: [facility] Work Phone: Start: 12-30-2021 Patient encounter procedure Yg James Work Phone: KI-Ckqeuib-Piadkoe D[facility] 6th [place] Work Phone: Start: 12-29-2021 Letter encounter Reynold miles MD Work Phone: [facility] Start: 12-23-2021 End: 12-27-2021 Evaluation and management of inpatient Brittany Rangel Borrero 7 Surgical 707 01 Other Phone (unformatted): [phone] Start: 12-19-2021 Office outpatient visit 25 minutes Yg James Work Phone: MI-Bmifuea-Ktlkn [id number] [address] Work Phone: Start: 12-12-2021 Office outpatient visit 15 minutes Yg James Work Phone: ZT-Jlnrvfb-Yllsu MAC[facility] [address] Work Phone: Start: 12-12-2021 RUTHOME, Provider : Brittany Bose, Status: Pen, Time: 11:15 AM Yg James Work Phone: -Sleep Medicine-[facility] 6th Flr Work Phone: Start: 12-05-2021 Office outpatient visit 25 minutes Yg James Work Phone: [facility] 6[facility] Flr Work Phone: Start: 12-05-2021 Patient encounter procedure Yg James Work Phone: -Sleep Medicine-[place] A2470 DO Work Phone: Start: 12-04-2021 End: 12-05-[address] YG BROCK Facility: Start: 07-31-2021 [facility], Provider : MS John TRUONG, Status: Pen, Time: 11:30 AM Yg James Work Phone: MP-Pulmonary Medicine-[place] A2470 DO Work Phone: Start: 07-29-2021 Office consultation new/estab patient 60 min Yg James Work Phone: MP-Pulmonary Medicine-[place] A2470 DO Work Phone: Start: 07-17-2021 AUDIT Yg James Work Phone: [facility] Work Phone: Start: 07-16-2021 Patient encounter procedure Yg James Work Phone: [id number] Work Phone: Start: 07-16-2021 BERTOFLORECITA, Provider : Danika Oquendo, Status: Pen, Time: 1:00 PM Yg James Work Phone: CO-Ofxrvgllir-Jwicbqau SJW 200 Work Phone: Start: 07-15-2021 Office outpatient ne w 30 minutes Yg James Work Phone: ZQ-Hqotidqpvy-Koquppbq SJW 200 Work Phone: Start: 07-10-2021 Chart Update Yg James Work Phone: ZL-Xmpmfweknh-Dqxmnx 12th [place] Work Phone: Start: 06-18-2021 Patient encounter procedure Yg James Work Phone: [id number] Work Phone: Start: 06-18-2021 VIRSHANTEL, Provider : Danika Oquendo, Status: Pen, Time: 9:30 AM Yg James Work Phone: YA-Nakizty-Lvwpk [id number] [address] Work Phone: Start: 06-13-2021 AUDIT Yg James Work Phone: MG-Pulm Sleep-[place] 203 Work Phone: Start: 06-12-2021 AUDIT Yg James Work Phone: [facility] Work Phone: Start: 05-24-2021 End: 05-30-2021 Evaluation and management of inpatient Jose Ballesterosma 6 Medical [phone] Other Phone (unformatted): [phone] Start: 05-24-2021 Office outpatient ne w 45 minutes Sean Ruiz Work Phone: UP-Rhuxbvh-Lyecj MAC[facility] [address] Work Phone: Start: 12-10-2017 End: 12-11-2017 Ambulatory LAMAR MARGIBoo Facility:[facility] Start: 12-09-2017 End: 12-10-2017 ambulatory UNKNOWN PROVIDER Facility:[facility] Patient encounter status Yg James Work Phone: KG-Xdaooltohb-Kgnmkpmb SJW 200 Work Phone: Procedures Date Procedure Procedure Detail Performing Clinician Start: 11-18-2023 Adult depression scr eening assessment Skylar Coffey [employer]ER-MANAGER 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 Work Phone: Start: 11-04-2023 SARS-CoV-2, Influenz a & RSV (PCR) II Dania Pardo Work Phone: Start: 11-04-2023 Computed tomography of abdomen and pelvis with contrast II Dania Pardo Work Phone: Start: 10-28-2023 Computed tomography of abdomen and pelvis with contrast II Dania Pardo Work Phone: Start: 10-28-2023 Blood culture for ba cteria, including anaerobic screen II Dania Pardo Work Phone: Start: 10-28-2023 Respiratory Panel (PCR) II Dania Pardo Work Phone: Start: 10-08-[address] OF APPEALS JUDGE Work Phone: Start: 07-13-2023 [facility] ANORECTAL MANOMETRY Hamlet Zafar MD Work Phone: Start: 06-26-2023 Esophagoscp rig mcbride soral hypopharynx crv smita Goddard MD Work Phone: Start: 06-03-2023 Computed tomography of abdomen and pelvis with contrast II Dania Pardo Work Phone: Start: 06-03-2023 Mammography Skylar Nam jasper [employer]AT FUELER-MANAGER 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 Work Phone: Start: 04-23-2023 Colonoscopy Sanford alas MD Work Phone: Start: 04-10-2023 End: 04-10-2023 Colonoscopy Frances Boo BOAT FUELER.MANAGER 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 Work Phone: Start: 04-06-2023 Breath hydrogen/meth ane test Sanford Ozuna MD Work Phone: Start: 02-16-2023 History of total hysterectomy H/O total hysterectomy Belem Remy COURT OF APPEALS JUDGE Work Phone: Start: 11-19-2022 Mammography Sanford alas MD Work Phone: Start: 09-15-2022 Electrocardiogram SANFORD OZUNA Start: 08-29-2022 Radiologic exam ches t 2 views Parvin Griffin MD Work Phone: Start: 06-16-2022 History of gastroint estinal tract bypass History of Gelacio-en-Y gastric bypass Sanford Ozuna MD Work Phone: Start: 05-04-2022 Diagnostic radiograp hy of abdomen DO Marc Nguyễn Work Phone: Start: 04-29-2022 Computed tomography of abdomen and pelvis with contrast DO [facility] Work Phone: Start: 04-12-2022 Antibody screen Comment on above: Performed By: #### T +S #### [facility] [address] [place] [address] Start: 04-08-2022 History of gastroint estinal tract bypass History of Gelacio-en-Y gastric bypass Belem Remy COURT OF APPEALS JUDGE Work Phone: Start: 12-19-2021 Antibody screen Comment on above: Performed By: #### T +S ####[facility] [place] [address] Start: 05-24-2021 End: 05-24-2021 EKG impression Kate Goodman H/O: surgery Status post delma jeff surgery Hamlet Zafar MD Work Phone: History of gastroint estinal tract bypass History of Gelacio-en-Y gastric bypass aSnford Ozuna MD Work Phone: History of gastroint estinal tract bypass History of Gelacio-en-Y gastric bypass Nhi Hinojosa BOAT FUELER.MANAGER 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 Work Phone: History of gastroint estinal tract bypass History of Gelacio-en-Y gastric bypass Magaly Andrade MD Work Phone: History of gastroint estinal tract bypass History of Gelacio-en-Y gastric bypass Hamlet Zafar MD Work Phone: SARS-CoV-2, Influenz a & RSV (PCR) DO Marc Cocoa Work Phone: Sleeve resection of stomach Sean Ruiz Work Phone: Urine culture DO Marc Wright on Work Phone: Plan of Treatment Date Care Activity Detail Author Start: 10-08-2033 Screening for malignant neoplasm of colon [facility] Start: 11-05-2026 Diabetes Screening Diabetes Screening [facility] Start: 10-06-2026 Diabetes Screening Diabetes Screening [facility] Start: 2026 Shingles (RZV) Vaccine (1 of 2) Shingles (RZV) Vaccine (1 of 2) [facility] Start: 08-17-2026 Diabetes Screening Diabetes Screening [facility] Start: 07-31-2026 Diabetes Screening Diabetes Screening [facility] Start: 07-13-2026 Diabetes Screening Diabetes Screening [facility] Start: 06-26-2026 Diabetes Screening Diabetes Screening [facility] Start: 06-12-2026 Diabetes Screening Diabetes Screening [facility] Start: 04-28-2026 DIABETES SCREEN DIABETES SCREEN [facility] Start: 04-28-2026 Diabetes Screening Diabetes Screening [facility] Start: 04-23-2026 DIABETES SCREEN DIABETES SCREEN [facility] Start: 04-11-2026 DIABETES SCREEN DIABETES SCREEN [facility] Start: 04-08-2026 DIABETES SCREEN DIABETES SCREEN [facility] Start: 04-02-2026 DIABETES SCREEN DIABETES SCREEN [facility] Start: 03-02-2026 DIABETES SCREEN DIABETES SCREEN [facility] Start: 09-30-2025 DIABETES SCREEN DIABETES SCREEN [facility] Start: 09-18-2025 DIABETES SCREEN DIABETES SCREEN [facility] Start: 09-17-2025 DIABETES SCREEN DIABETES SCREEN [facility] Start: 08-15-2025 DIABETES SCREEN DIABETES SCREEN [facility] Start: 08-14-2025 DIABETES SCREEN DIABETES SCREEN [facility] Start: 08-13-2025 DIABETES SCREEN DIABETES SCREEN [facility] Start: 08-12-2025 DIABETES SCREEN DIABETES SCREEN [facility] Start: 08-11-2025 DIABETES SCREEN DIABETES SCREEN [facility] Start: 07-30-2025 DIABETES SCREEN DIABETES SCREEN [facility] Start: 07-22-2025 DIABETES SCREEN DIABETES SCREEN [facility] Start: 06-30-2025 DIABETES SCREEN DIABETES SCREEN [facility] Start: 06-25-2025 [facility]ET[facility] Start: 06-17-2025 DIABETES SCREEN DIABETES SCREEN [facility] Start: 06-16-2025 DIABETES SCREEN DIABETES SCREEN [facility] Start: 11-17-2024 Adult BMI Screening Adult BMI Screening [facility] Start: 11-17-2024 Depression Screening Depression Screening [facility] Start: 11-17-2024 Tobacco Screening Tobacco Screening [facility] Start: 06-03-2024 Screening for malignant neoplasm of breast Mammogram [facility] Start: 04-23-2024 Colonoscopy COLONOSCOPY [facility] Start: 04-23-2024 COLORECTAL CANCER SCREENING COLORECTAL CANCER SCREENING [facility] Start: 04-23-2024 Screening for malignant neoplasm of colon [facility] Start: 04-10-2024 Colonoscopy COLONOSCOPY [facility] Start: 04-10-2024 COLORECTAL CANCER SCREENING COLORECTAL CANCER SCREENING [facility] Start: 04-08-2024 Screening for malignant neoplasm of colon FOBT [facility] Start: 12-15-2023 Hemoglobin A1c measurement Diabetes: Hemoglobin A1C [facility] Start: 11-20-2023 Mammography [facility] Start: 11-20-2023 Screening for malignant neoplasm of breast [facility] Start: 11-18-2023 End: 11-17-2024 XR Chest PA and Lateral X-ray chest 2 views Imaging Routine Community acquired bacterial pneumonia Expected: 11/18/2023, Expires: 11/17/2024 [facility] Work Phone: Comment on above: Expected: 11/18/2023, Expires: Start: 11-04-2023 Bacteria identified in Blood by Culture [facility] Start: 11-02-2023 End: 11-02-2023 Patient encounter procedure 11/02/2023 3:30 PM EST Office Visit [facility] [address] [facility] [address] [place] [address] Yanci Aguilar PA [address] [facility] [address] [place], [place] [id number] [facility] Start: 10-30-2023 End: 10-30-2023 Clinical Support 10/30/2023 3:00 PM EST Clinical Support [facility] [address] [facility] [address] [place] [address] Argenis Cruz, [facility] [address] [place] [address] [facility] Start: 10-28-2023 Bacteria identified in Blood by Culture [facility] Start: 10-27-2023 End: 10-27-2023 Patient encounter procedure 10/27/2023 9:30 AM EST Office Visit [facility] [address] [facility] [address] [place] [address] Belem Remy, COURT OF APPEALS JUDGE [address] [place] [address] [place] [address] [facility] Start: 10-23-2023 [facility] Start: 10-18-2023 [facility] Start: 10-17-2023 [facility] Start: 10-16-2023 [facility] Start: 10-15-2023 Administration of prophylactic treatment [facility] Start: 10-15-2023 [facility] Start: 10-14-2023 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 [facility] Start: 10-14-2023 [facility] Start: 10-13-2023 [facility] Start: 10-12-2023 Administration of prophylactic treatment [facility] Start: 10-12-2023 [facility] Start: 10-11-2023 [facility] Start: 10-10-2023 [facility] Start: 10-09-2023 [facility] Start: 10-08-2023 End: 10-08-2023 [facility] Start: 10-08-2023 Patient referral to dietitian [facility] Start: 10-08-2023 Physical therapy procedure [facility] Start: 10-08-2023 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 [facility] Start: 10-08-2023 Referral to infectious diseases physician [facility] Start: 10-08-2023 Referral to occupational therapist [facility] Start: 10-08-2023 Referral to speech and language therapy service [facility] Start: 10-08-2023 Hospital admission [facility] Start: 10-08-2023 Bacteria identified in Stool by Culture [facility] Start: 10-08-2023 End: 10-08-2023 [facility] Start: 09-14-2023 Depression Assessment Depression Assessment [facility] Start: 08-07-2023 End: 07-27-2024 EGD - THERAPEUTIC, EUS, OR TUBE INTERVENTIONS EGD - THERAPEUTIC, EUS, OR TUBE INTERVENTIONS Endoscopy Routine Chronic vomiting Malnutrition of mild degree (HCC) Expected: 08/07/2023, Expires: 07/27/2024 [facility] Work Phone: Comment on above: Expected: 08/07/2023, Expires: Start: 07-13-2023 End: 10-12-2023 Alpha tocopherol [Mass/volume] in Serum or Plasma [facility] Work Phone: Comment on above: Expected: 07/13/2023 (Approximate), Expi res: 10/12/2023 Start: 07-13-2023 End: 10-12-2023 C reactive protein [Mass/volume] in Serum or Plasma C-REACTIVE PROTEIN (CRP) Lab Routine Diarrhea due to malabsorption Expected: 07/13/2023 (Approximate), Expires: 10/12/2023 [facility] Work Phone: Comment on above: Expected: 07/13/2023 (Approximate), Expi res: 10/12/2023 Start: 07-13-2023 End: 10-12-2023 CBC W Auto Differential panel - Blood CBC + DIFF Lab Routine Diarrhea due to malabsorption Expected: 07/13/2023 (Approximate), Expires: 10/12/2023 [facility] Work Phone: Comment on above: Expected: 07/13/2023 (Approximate), Expi res: 10/12/2023 Start: 07-13-2023 End: 10-12-2023 CELIAC SCREEN WITH REFLEX CELIAC SCREEN WITH REFLEX Lab Routine Diarrhea due to malabsorption Malnutrition of mild degree (HCC) Expected: 07/13/2023 (Approximate), Expires: 10/12/2023 [facility] Work Phone: Comment on above: Expected: 07/13/2023 (Approximate), Expi res: 10/12/2023 Start: 07-13-2023 End: 10-12-2023 Comprehensive metabolic 2000 panel - Serum or Plasma COMP METABOLIC PANEL Lab Routine Diarrhea due to malabsorption Expected: 07/13/2023 (Approximate), Expires: 10/12/2023 [facility] Work Phone: Comment on above: Expected: 07/13/2023 (Approximate), Expi res: 10/12/2023 Start: 07-13-2023 End: 10-12-2023 COPPER BLOOD [facility] Work Phone: Comment on above: Expected: 07/13/2023 (Approximate), Expi res: 10/12/2023 Start: 07-13-2023 End: 10-12-2023 Magnesium [Mass/volume] in Serum or Plasma MAGNESIUM BLD Lab Routine Diarrhea due to malabsorption Expected: 07/13/2023 (Approximate), Expires: 10/12/2023 [facility] Work Phone: Comment on above: Expected: 07/13/2023 (Approximate), Expi res: 10/12/2023 Start: 07-13-2023 End: 10-12-2023 Methylmalonate [Moles/volume] in Serum or Plasma [facility] Work Phone: Comment on above: Expected: 07/13/2023 (Approximate), Expi res: 10/12/2023 Start: 07-13-2023 End: 10-12-2023 Pyridoxine [Mass/volume] in Serum or Plasma [facility] Work Phone: Comment on above: Expected: 07/13/2023 (Approximate), Expi res: 10/12/2023 Start: 07-13-2023 End: 10-12-2023 Retinol [Mass/volume] in Serum or Plasma [facility] Work Phone: Comment on above: Expected: 07/13/2023 (Approximate), Expi res: 10/12/2023 Start: 07-13-2023 End: 08-11-2024 XR ABDOMEN 1V SUPINE XR ABDOMEN 1V SUPINE Radiology Routine Incontinence of feces with fecal urgency Expected: 07/13/2023 (Approximate), Expires: 08/11/2024 [facility] Work Phone: Comment on above: Expected: 07/13/2023 (Approximate), Expi res: 08/11/2024 Start: 07-13-2023 End: 10-12-2023 Zinc [Mass/volume] in Serum or Plasma [facility] Work Phone: Comment on above: Expected: 07/13/2023 (Approximate), Expi res: 10/12/2023 Start: 07-11-2023 End: 04-10-2024 COLONOSCOPY DIAGNOSTIC COLONOSCOPY DIAGNOSTIC Endoscopy Routine Diarrhea, unspecified type History of Gelacio-en-Y gastric bypass Expected: 07/11/2023, Expires: 04/10/2024 [facility] Work Phone: Comment on above: Expected: 07/11/2023, Expires: Start: 06-03-2023 Patient referral to dietitian [facility] Start: 06-03-2023 End: 06-03-2023 [facility] Start: 06-03-2023 Bacteria identified in Stool by Culture [facility] Start: 06-03-2023 Hospital admission [facility] Start: 06-03-2023 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 [facility] Start: 06-03-2023 Stool culture for bacteria Stool Culture [facility] Start: 06-03-2023 Bacteria identified in Stool by Culture [facility] Start: 06-03-2023 [facility] Start: 06-02-2023 End: 08-02-2023 25-hydroxyvitamin D3 [Mass/volume] in Serum or Plasma VITAMIN D 25 HYDROXY Lab Routine Diarrhea, unspecified type Chronic pancreatitis, unspecified pancreatitis type (HCC) Expected: 06/02/2023, Expires: 08/02/2023 [facility] Work Phone: Comment on above: Expected: 06/02/2023, Expires: 3 Start: 06-02-2023 End: 08-02-2023 C reactive protein [Mass/volume] in Serum or Plasma C-REACTIVE PROTEIN (CRP) Lab Routine Diarrhea, unspecified type Chronic pancreatitis, unspecified pancreatitis type (HCC) Expected: 06/02/2023, Expires: 08/02/2023 [facility] Work Phone: Comment on above: Expected: 06/02/2023, Expires: 3 Start: 06-02-2023 End: 08-02-2023 CBC panel - Blood by Automated count CBC Lab Routine Diarrhea, unspecified type Chronic pancreatitis, unspecified pancreatitis type (HCC) Expected: 06/02/2023, Expires: 08/02/2023 [facility] Work Phone: Comment on above: Expected: 06/02/2023, Expires: 3 Start: 06-02-2023 End: 08-02-2023 Cobalamin (Vitamin B12) [Mass/volume] in Serum or Plasma VITAMIN B12 BLOOD Lab Routine Diarrhea, unspecified type Chronic pancreatitis, unspecified pancreatitis type (HCC) Expected: 06/02/2023, Expires: 08/02/2023 [facility] Work Phone: Comment on above: Expected: 06/02/2023, Expires: 3 Start: 06-02-2023 End: 08-02-2023 Comprehensive metabolic 2000 panel - Serum or Plasma COMP METABOLIC PANEL Lab Routine Diarrhea, unspecified type Chronic pancreatitis, unspecified pancreatitis type (HCC) Expected: 06/02/2023, Expires: 08/02/2023 [facility] Work Phone: Comment on above: Expected: 06/02/2023, Expires: 3 Start: 05-15-2023 Covid-19 Vaccine () Covid-19 Vaccine () [facility] Start: 05-15-2023 Influenza vaccination [facility] Start: 05-13-2023 Adult BMI Follow Up Plan Adult BMI Follow Up Plan [facility] Start: 04-02-2023 End: 06-02-2023 25-hydroxyvitamin D3 [Mass/volume] in Serum or Plasma [facility] Work Phone: Comment on above: Expected: 04/02/2023, Expires: 3 Start: 04-02-2023 End: 06-02-2023 Cobalamin (Vitamin B12) [Mass/volume] in Serum or Plasma [facility] Work Phone: Comment on above: Expected: 04/02/2023, Expires: 3 Start: 04-02-2023 End: 06-02-2023 Ferritin [Mass/volume] in Serum or Plasma [facility] Work Phone: Comment on above: Expected: 04/02/2023, Expires: 3 Start: 04-02-2023 End: 06-02-2023 Folate [Mass/volume] in Serum or Plasma [facility] Work Phone: Comment on above: Expected: 04/02/2023, Expires: 3 Start: 04-02-2023 End: 06-02-2023 Gastrin [Mass/volume] in Serum or Plasma [facility] Work Phone: Comment on above: Expected: 04/02/2023, Expires: 3 Start: 04-02-2023 End: 06-02-2023 Iron and Iron binding capacity panel - Serum or Plasma [facility] Work Phone: Comment on above: Expected: 04/02/2023, Expires: 3 Start: 04-02-2023 End: 06-02-2023 Parathyrin.intact [Mass/volume] in Serum or Plasma [facility] Work Phone: Comment on above: Expected: 04/02/2023, Expires: 3 Start: 04-02-2023 End: 06-02-2023 VITAMIN B1 (THIAMINE), WHOLE BLOOD [facility] Work Phone: Comment on above: Expected: 04/02/2023, Expires: 3 Start: 03-27-2023 End: 05-15-2023 CDIFF PCR W/RFLX EIA IF POSITIVE CDIFF PCR W/RFLX EIA IF POSITIVE Lab Routine Diarrhea, unspecified type Expected: 03/27/2023 (Approximate), Expires: 05/15/2023 [facility] Work Phone: Comment on above: Expected: 03/27/2023 (Approximate), Expi res: 05/15/2023 Start: 11-17-2022 End: 01-17-2023 25-hydroxyvitamin D3 [Mass/volume] in Serum or Plasma VITAMIN D 25 HYDROXY Lab Routine Gastric bypass status for obesity Expected: 11/17/2022, Expires: 01/17/2023 [facility] Work Phone: Comment on above: Expected: 11/17/2022, Expires: 3 Start: 11-17-2022 End: 01-17-2023 Cobalamin (Vitamin B12) [Mass/volume] in Serum or Plasma VITAMIN B12 BLOOD Lab Routine Gastric bypass status for obesity Expected: 11/17/2022, Expires: 01/17/2023 [facility] Work Phone: Comment on above: Expected: 11/17/2022, Expires: 3 Start: 11-17-2022 End: 01-17-2023 Folate [Mass/volume] in Serum or Plasma FOLATE SERUM Lab Routine Gastric bypass status for obesity Expected: 11/17/2022, Expires: 01/17/2023 [facility] Work Phone: Comment on above: Expected: 11/17/2022, Expires: Start: 11-17-2022 End: 01-17-2023 VITAMIN B1 (THIAMINE), WHOLE BLOOD VITAMIN B1 (THIAMINE), WHOLE BLOOD Lab Routine Gastric bypass status for obesity Expected: 11/17/2022, Expires: 01/17/2023 [facility] Work Phone: Comment on above: Expected: 11/17/2022, Expires: 3 Start: 11-10-2022 End: 12-21-2022 CBC panel - Blood by Automated count CBC Lab Routine 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 Expected: 11/10/2022 (Approximate), Expires: 12/21/2022 [facility] Work Phone: Comment on above: Expected: 11/10/2022 (Approximate), Expi res: 12/21/2022 Start: 11-10-2022 End: 12-21-2022 Ferritin [Mass/volume] in Serum or Plasma FERRITIN BLD Lab Routine 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 Expected: 11/10/2022 (Approximate), Expires: 12/21/2022 [facility] Work Phone: Comment on above: Expected: 11/10/2022 (Approximate), Expi res: 12/21/2022 Start: 11-10-2022 End: 12-21-2022 Iron and Iron binding capacity panel - Serum or Plasma IRON + TIBC Lab Routine 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 Expected: 11/10/2022 (Approximate), Expires: 12/21/2022 [facility] Work Phone: Comment on above: Expected: 11/10/2022 (Approximate), Expi res: 12/21/2022 Start: 09-14-2022 DEPRESSION ASSESSMENT DEPRESSION ASSESSMENT [facility] Start: 08-29-2022 End: 08-29-2023 Radiologic exam chest 2 views XR CHEST 2V FRONTAL/LAT Radiology Routine Hospital discharge follow-up Expected: 08/29/2022, Expires: 08/29/2023 [facility] Work Phone: Comment on above: Expected: 08/29/2022, Expires: 3 Start: 08-08-2022 End: 10-08-2022 PAIN PANEL, UR QUANT [facility] Work Phone: Comment on above: Expected: 08/08/2022, Expires: 3 Start: 06-16-2022 End: 08-16-2022 25-hydroxyvitamin D3 [Mass/volume] in Serum or Plasma VITAMIN D 25 HYDROXY Lab Routine Adverse effect of treatment, initial encounter Marginal ulcer Expected: 06/16/2022, Expires: 08/16/2022 [facility] Work Phone: Comment on above: Expected: 06/16/2022, Expires: 2 Start: 06-16-2022 End: 08-16-2022 Alpha tocopherol [Mass/volume] in Serum or Plasma VITAMIN E/TOCOPHEROL Lab Routine Adverse effect of treatment, initial encounter Marginal ulcer Chronic prescription opiate use Expected: 06/16/2022, Expires: 08/16/2022 [facility] Work Phone: Comment on above: Expected: 06/16/2022, Expires: 2 Start: 06-16-2022 End: 08-16-2022 CBC W Auto Differential panel - Blood CBC + DIFF Lab Routine Adverse effect of treatment, initial encounter Marginal ulcer Expected: 06/16/2022, Expires: 08/16/2022 [facility] Work Phone: Comment on above: Expected: 06/16/2022, Expires: 2 Start: 06-16-2022 End: 08-16-2022 Cobalamin (Vitamin B12) [Mass/volume] in Serum or Plasma VITAMIN B12 BLOOD Lab Routine Adverse effect of treatment, initial encounter Marginal ulcer Expected: 06/16/2022, Expires: 08/16/2022 [facility] Work Phone: Comment on above: Expected: 06/16/2022, Expires: 2 Start: 06-16-2022 End: 08-16-2022 Comprehensive metabolic 2000 panel - Serum or Plasma COMP METABOLIC PANEL Lab Routine Adverse effect of treatment, initial encounter Marginal ulcer Expected: 06/16/2022, Expires: 08/16/2022 [facility] Work Phone: Comment on above: Expected: 06/16/2022, Expires: 2 Start: 06-16-2022 End: 06-16-2023 COPPER BLOOD COPPER BLOOD Lab Routine Adverse effect of treatment, initial encounter Marginal ulcer Expected: 06/16/2022, Expires: 06/16/2023 [facility] Work Phone: Comment on above: Expected: 06/16/2022, Expires: 3 Start: 06-16-2022 End: 08-16-2022 Folate [Mass/volume] in Serum or Plasma FOLATE SERUM Lab Routine Adverse effect of treatment, initial encounter Marginal ulcer Expected: 06/16/2022, Expires: 08/16/2022 [facility] Work Phone: Comment on above: Expected: 06/16/2022, Expires: 2 Start: 06-16-2022 End: 08-16-2022 Gastrin [Mass/volume] in Serum or Plasma GASTRIN BLD Lab Routine Adverse effect of treatment, initial encounter Marginal ulcer Expected: 06/16/2022, Expires: 08/16/2022 [facility] Work Phone: Comment on above: Expected: 06/16/2022, Expires: 2 Start: 06-16-2022 End: 08-16-2022 Iron and Iron binding capacity panel - Serum or Plasma IRON + TIBC Lab Routine Adverse effect of treatment, initial encounter Marginal ulcer Expected: 06/16/2022, Expires: 08/16/2022 [facility] Work Phone: Comment on above: Expected: 06/16/2022, Expires: 2 Start: 06-16-2022 End: 08-16-2022 NICOTINE & METAB, UR NICOTINE & METAB, UR Lab Routine Marginal ulcer Expected: 06/16/2022, Expires: 08/16/2022 [facility] Work Phone: Comment on above: Expected: 06/16/2022, Expires: 2 Start: 06-16-2022 End: 08-16-2022 Prealbumin [Mass/volume] in Serum or Plasma PREALBUMIN BLD Lab Routine Adverse effect of treatment, initial encounter Marginal ulcer Expected: 06/16/2022, Expires: 08/16/2022 [facility] Work Phone: Comment on above: Expected: 06/16/2022, Expires: 2 Start: 06-16-2022 End: 06-16-2023 Retinol [Mass/volume] in Serum or Plasma VITAMIN A/RETINOL Lab Routine Adverse effect of treatment, initial encounter Marginal ulcer Expected: 06/16/2022, Expires: 06/16/2023 [facility] Work Phone: Comment on above: Expected: 06/16/2022, Expires: 3 Start: 06-16-2022 End: 06-16-2023 Zinc [Mass/volume] in Serum or Plasma ZINC BLD Lab Routine Adverse effect of treatment, initial encounter Marginal ulcer Expected: 06/16/2022, Expires: 06/16/2023 [facility] Work Phone: Comment on above: Expected: 06/16/2022, Expires: 3 Start: 06-14-2022 Influenza vaccination Influenza Vaccine (#1) [facility] Start: 05-04-2022 [facility] Work Phone: Start: 05-02-2022 [facility] Work Phone: Start: 05-02-2022 Administration of prophylactic treatment [facility] Work Phone: Start: 05-01-2022 Administration of prophylactic treatment [facility] Work Phone: Start: 04-30-2022 Administration of prophylactic treatment [facility] Work Phone: Start: 04-29-2022 Hospital admission [facility] Work Phone: Start: 04-29-2022 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 [facility] Work Phone: Start: 04-15-2022 LYNETTE, Provider: Brittany Bose, Status: Pen, Time: 2:15 PM LYNETTE, Provider: Brittany Bose, Status: Pen, Time: 2:15 PM [facility] Work Phone: Start: 03-21-2022 Patient encounter procedure [facility] Start: 03-21-2022 VIRFUVHOME, Provider: Brittany Bose, Status: Pen, Time: 9:00 AM VIRFUVHOME, Provider: Brittany Bose, Status: Pen, Time: 9:00 AM DU-Qcdccjp-Gsmse [id number] Work Phone: Start: 03-20-2022 Patient encounter procedure [facility] Start: 03-20-2022 VIRFUVHOME, Provider: Danika Oquendo, Status: Pen, Time: 2:30 PM VIRFUVHOME, Provider: Danika Oquendo, Status: Pen, Time: 2:30 PM JG-Hhjjnkr-Eatrp [id number] Work Phone: Start: 01-31-2022 Patient encounter procedure [facility] Start: 01-31-2022 VIRFUVHOME, Provider: Brittany Bose, Status: Pen, Time: 11:15 AM VIRFUVHOME, Provider: Brittany Bose, Status: Pen, Time: 11:15 AM NG-Ymqvuqa-Dixhr [id number] Work Phone: Start: 01-30-2022 Patient encounter procedure [facility] [place] Start: 01-30-2022 VIRFUVHOME, Provider: Danika Oquendo, Status: Pen, Time: 10:00 AM VIRFUVHOME, Provider: Danika Oquendo, Status: Pen, Time: 10:00 AM NR-Mvjmtsq-Bwtxx [id number] Work Phone: Start: 01-30-2022 VIRFUVHOME, Provider: ARMEN MS RD,John Singh, Status: Pen, Time: 10:00 AM VIRFUVHOME, Provider: ARMEN MS RD,John Singh, Status: Pen, Time: 10:00 AM DN-Zuydodf-Gusnkiw [facility] [place] Work Phone: Start: 01-09-2022 POVBARI, Provider: Brittany Bose, Status: Pen, Time: 9:00 AM POVBARI, Provider: Brittany Bose, Status: Pen, Time: 9:00 AM LO-Rxnmrkd-Jonam [id number] Work Phone: Start: 01-06-2022 Patient encounter procedure [facility] Surgery Start: 01-06-2022 VIRPRASAD, Provider: Cecil Storey, Status: Pen, Time: 10:45 AM VIRFUVLIVIAE, Provider: Cecil Storey, Status: Pen, Time: 10:45 AM OV-Mqinjca-Npvjh [id number] Work Phone: Start: 12-30-2021 Patient encounter procedure Surgery [place] Start: 12-30-2021 VIRPRASAD, Provider: Ana Mayberry, Status: Pen, Time: 9:30 AM VIRPRASAD, Provider: Ana Mayberry, Status: Pen, Time: 9:30 AM XQ-Snpyulb-Xlpat [id number] Work Phone: Start: 12-24-2021 End: 12-25-2022 ALPRAZolam 0.5 mg Oral Tablet Every 8 Hours PRN ; Tablet (XANAX)DOSE = 0.5 mg Oral Every 8 Hours, PRN Anxiety Start: 24-Dec-2021 End: 24-Dec-2022 Ordered: 24-Dec-2021 Leslie Tony [facility] Other Phone (unformatted): [phone] Start: 12-24-2021 End: 12-24-2022 [facility] Other Phone (unformatted): [phone] Comment on above: Anita-operative order ONLY Start: 12-23-2021 End: 12-24-2022 [facility] Other Phone (unformatted): [phone] Comment on above: Scopolamine TransDermal 1.3 mg and 1.5 m g Patches Deliver 1 mg over 72 hours May repeat x1 Pre-op only To be given 1 hour p reoperatively when patient is placed on-call to the OR. Start: 12-19-2021 LYNETTE, Provider: Lucy Gutiérrez, Status: Pen, Time: 2:30 PM VIRPRASAD, Provider: Lucy Gutiérrez, Status: Pen, Time: 2:30 PM MP-Sleep Medicine-Katharine [id number] DO Work Phone: Start: 12-19-2021 FUQUAN, Provider: Brittany Bose, Status: Pen, Time: 9:45 AM FUVBARI, Provider: Brittany Bose, Status: Pen, Time: 9:45 AM FS-Vahagts-Uflnt [id number] Work Phone: Start: 12-12-2021 VIRPRASAD, Provider: Brittany Bose, Status: Pen, Time: 11:15 AM LYNETTE, Provider: Brittany Bose, Status: Pen, Time: 11:15 AM MP-Sleep Medicine-Katharine [id number] DO Work Phone: Start: 2021 Cholesterol [Mass/volume] in Serum or Plasma Cholesterol [facility] Start: 2021 COLOGUARD (FIT-DNA) COLOGUARD (FIT-DNA) [facility] Start: 2021 Colonoscopy COLONOSCOPY [facility] Start: 2021 COLORECTAL CANCER SCREENING COLORECTAL CANCER SCREENING [facility] Start: [address] COLONOGRAPHY [facility] Start: 2021 FECAL OCCULT BLOOD FECAL OCCULT BLOOD [facility] Start: 2021 Lipid 1996 panel - Serum or Plasma Lipid Screening [facility] Start: 2021 Lipid panel Lipid Screening [facility] Start: 2021 LIPID SCREEN LIPID SCREEN [facility] Start: 2021 Screening for malignant neoplasm of colon [facility] Start: 2021 SIGMOIDOSCOPY SIGMOIDOSCOPY [facility] Start: 09-14-2021 DEPRESSION ASSESSMENT DEPRESSION ASSESSMENT [facility] Start: 08-12-2021 LYNETTE, Provider: Lucy Gutiérrez, Status: Pen, Time: 8:00 AM LYNETTE, Provider: Lucy Gutiérrez, Status: Pen, Time: 8:00 AM MP-Pulmonary Medicine-Katharine [id number] DO Work Phone: Start: 08-02-2021 VIRNPVCLSH, Provider: Danika Oquendo, Status: Pen, Time: 8:00 AM VIRNPVCLSH, Provider: Danika Oquendo, Status: Pen, Time: 8:00 AM [facility] Work Phone: Start: 07-29-2021 VIRNPVHOME, Provider: Lucy Gutiérrez, Status: Pen, Time: 8:00 AM VIRNPVHOME, Provider: Lucy Gutiérrez, Status: Pen, Time: 8:00 AM [facility] Work Phone: Start: 07-19-2021 VIRNPVCLSH, Provider: Danika Oquendo, Status: Pen, Time: 8:00 AM VIRNPVCLSH, Provider: Danika Oquendo, Status: Pen, Time: 8:00 AM [facility] [id number] Work Phone: Start: 07-16-2021 VIRFUVHOME, Provider: Danika Oquendo, Status: Pen, Time: 1:00 PM VIRFUVHOME, Provider: Danika Oquendo, Status: Pen, Time: 1:00 PM [id number] Work Phone: Start: 07-15-2021 NPV, Provider: Alfa Araujo, Status: Pen, Time: 2:00 PM NPV, Provider: Alfa Araujo, Status: Pen, Time: 2:00 PM MG-Pulm Sleep-[facility] Work Phone: Start: 06-18-2021 VIRNPVHOME, Provider: Danika Oquendo, Status: Pen, Time: 9:30 AM VIRNPVHOME, Provider: Danika Oquendo, Status: Pen, Time: 9:30 AM [facility] Work Phone: Start: 06-17-2021 NPVSLEEP, Provider: Edyta Ross, Status: Pen, Time: 9:40 AM NPVSLEEP, Provider: Edyta Ross, Status: Pen, Time: 9:40 AM [facility] Work Phone: Start: 05-28-2021 End: 05-31-2021 Iohexol (Omnipaque 350-Radiology Contrast) . ; (OMNIPAQUE)DOSE = 150 mL IntraVenous Push OnceCa.269 mL/Kg/DOSE x 118.2 Kg = 150 mL/Dose (Daily Total is 150 mL)LABS: Blood Urea Nitrogen, Serum,7,28-May-2021 08:41:40 Creatinine, Serum,0.70,28-May-2021 08:41:40 GFR-Non ,>60,28-May-2021 08:41:40 GFR-,>60,28-May-2021 08:41:40 Start: 28-May-2021 End: 30-May-2021 Ordered: 28-May-2021 Elmer Lindsay Intent [facility] Other Phone (unformatted): [phone] Start: 05-25-2021 End: 05-26-2022 Amphetamine - Dextroamphetamine 20 mg Oral Tablet Daily ; Tablet (ADDERALL)DOSE = 20 mg Oral 2 Times a DayClinician Notes: pharmacy does not stock. please ask family to provide from home supply. send to pharmacy for identifcation prior to administration. pharmacy wlil store and dispense when needed.PATIENTS OWN MEDS Start: 25-May-2021 End: 25-May-2022 Ordered: 25-May-2021 Jose Ayala Intent Comments: pharmacy does not stock. please ask family to provide from home supply. send to pharmacy for identifcation prior to administration. pharmacy wlil store and dispense when needed. [facility] Other Phone (unformatted): [phone] Comment on above: pharmacy does not stock. please ask fami ly to provide from home supply. send to pharmacy for identifcation prior to administration. pharmacy wlil store and dispense when needed. Start: 05-24-2021 End: 05-27-2021 [facility] Other Phone (unformatted): [phone] Start: 03-06-2021 COVID-19 VACCINE (3 - Booster for Pfizer series) COVID-19 VACCINE (3 - Booster for Pfizer series) [facility] Start: 03-06-2021 COVID-19 VACCINE (3 - Pfizer series) COVID-19 VACCINE (3 - Pfizer series) [facility] Start: 12-09-2018 Screening for malignant neoplasm of breast [facility] Start: 2016 Mammography MAMMOGRAM [facility] Start: 04-20-2016 DTaP,Tdap and Td Vaccines (2 - Td or Tdap) DTaP,Tdap and Td Vaccines (2 - Td or Tdap) [facility] Start: 04-20-2016 Urine microalbumin profile [facility] Start: 2006 HPV TESTING HPV TESTING [facility] Start: 2006 Screening for malignant neoplasm of cervix HPV Testing [facility] Start: 1997 PAP TESTING PAP TESTING [facility] Start: 1997 Screening for malignant neoplasm of cervix Pap Testing [facility] Start: 1995 Urine microalbumin profile DTAP,TDAP,TD (1 - Tdap) [facility] Start: 1995 Urine screening for protein Diabetes: Urine Protein Screening [facility] Start: 1994 ANNUAL PCP TEAM CHRONIC DISEASE VISIT ANNUAL PCP TEAM CHRONIC DISEASE VISIT [facility] Start: 1994 Hepatitis C screening [facility] Start: 1994 HEPATITIS C SCREENING HEPATITIS C SCREENING [facility] Start: 1994 HIV SCREENING HIV SCREENING [facility] Start: 1994 HIV screening HIV Screening [facility] Start: 1994 Tetanus + diphtheria + acellular pertussis vaccine (product) [facility] Start: 1991 [facility] Start: 1986 Glaucoma screening Diabetes: Retinopathy Screening [facility] Start: 1981 COVID-19 Vaccine (1) COVID-19 Vaccine (1) [facility] Start: 03-23-1977 COVID-19 Vaccine (#1) COVID-19 Vaccine (#1) [facility] Start: 1976 HEPATITIS B (1 of 3 - 3-dose series) HEPATITIS B (1 of 3 - 3-dose series) [facility] Start: 1976 Hepatitis B Vaccine (1 of 3 - 3-dose series) Hepatitis B Vaccine (1 of 3 - 3-dose series) [facility] Start: 1976 Screening for malignant neoplasm of colon [facility] ADULT [place] ANORECTAL MANOMETRY ADULT [place] ANORECTAL MANOMETRY Endoscopy Routine Diarrhea due to malabsorption 07/13/2023 [facility] Work Phone: Bacteria identified in Blood by Culture [facility] Bacteria identified in Stool by Culture [facility] Breath hydrogen/meth ane test [facility] Work Phone: Comment on above: Ordered: 04/02/2023 End: 09-12-2023 CBC W Auto Differential panel - Blood CBC + DIFF Lab Routine PICC (peripherally inserted central catheter) in place Malnutrition of mild degree (HCC) Once per week for 3 Occurrences starting 09/12/2022 until 09/12/2023, 1 completed [facility] Work Phone: Comment on above: Once per week for 3 Occurrences starting 09/12/2022 until 09/12/2023, 1 completed Clostridioides diffi cile toxin genes [Presence] in Stool by MEAGAN with probe detection C. DIFFICILE PCR Lab Routine Diarrhea, unspecified type Ordered: 09/04/2022 [facility] Work Phone: Comment on above: Ordered: 09/04/2022 Clostridioides diffi cile toxin genes [Presence] in Stool by MEAGAN with probe detection C. DIFFICILE PCR Lab Routine Diarrhea, unspecified type Ordered: 06/02/2023 [facility] Work Phone: Comment on above: Ordered: 06/02/2023 End: 07-16-2023 Ct angio abd&plvis cntrst mtrl w/wo cntrst img CTA ABD/PEL W IVCON Radiology Routine Adverse effect of treatment, initial encounter Marginal ulcer 1 Occurrences starting 06/16/2022 until 07/16/2023 [facility] Work Phone: Comment on above: 1 Occurrences starting 06/16/2022 until 07/16/2023 End: 06-16-2023 EGD - THERAPEUTIC, EUS, OR TUBE INTERVENTIONS EGD - THERAPEUTIC, EUS, OR TUBE INTERVENTIONS Endoscopy Routine Marginal ulcer 1 Occurrences starting 06/16/2022 until 06/16/2023 [facility] Work Phone: Comment on above: 1 Occurrences starting 06/16/2022 until 06/16/2023 End: 06-02-2024 EGD - THERAPEUTIC, EUS, OR TUBE INTERVENTIONS EGD - THERAPEUTIC, EUS, OR TUBE INTERVENTIONS Endoscopy Routine Diarrhea, unspecified type Chronic pancreatitis, unspecified pancreatitis type (HCC) 1 Occurrences starting 06/02/2023 until 06/02/2024 [facility] Work Phone: Comment on above: 1 Occurrences starting 06/02/2023 until 06/02/2024 ENTERIC BACTERIAL PA LULA BY PCR ENTERIC BACTERIAL PANEL BY PCR Lab Routine Diarrhea, unspecified type Chronic pancreatitis, unspecified pancreatitis type (HCC) Ordered: 06/02/2023 [facility] Work Phone: Comment on above: Ordered: 06/02/2023 FECAL FAT STOOL, QUANT FECAL FAT STOOL, QUANT Lab Routine Gastric bypass status for obesity Iron deficiency anemia, unspecified iron deficiency anemia type Diarrhea, unspecified type Ordered: 04/02/2023 [facility] Work Phone: Comment on above: Ordered: 04/02/2023 Giardia lamblia+Cryptosporidium sp Ag [Presence] in Stool by Immunoassay CRYPTOSPORIDIUM AND GIARDIA ANTIGENS BY EIA Microbiology Routine Gastric bypass status for obesity Iron deficiency anemia, unspecified iron deficiency anemia type Diarrhea, unspecified type Ordered: 04/02/2023 [facility] Work Phone: Comment on above: Ordered: 04/02/2023 IR CENTRAL CATHETER PLACEMENT IR CENTRAL CATHETER PLACEMENT Radiology TRI History of Gelacio-en-Y gastric bypass Intractable abdominal pain Ordered: 06/19/2022 [facility] Work Phone: Comment on above: Ordered: 06/19/2022 Iv infusion therapy/prophylaxis /dx 1st to 1 hr THER/PROPH/DIAG IV INF, INIT Procedures Routine Chronic pain syndrome Ordered: 08/04/2023 [facility] Work Phone: Comment on above: Ordered: 08/04/2023 Patient Education [facility] Work Phone: Patient referral [facility] Work Phone: [facility] [facility] Immunizations Immunization Date Immunization Notes Care Provider [facility] 08-09-2023 influenza, injectabl e, quadrivalent, preservative free Hamlet Zafar MD Work Phone: [facility] 06-16-2022 influenza, injectabl e, quadrivalent, preservative free Sanford Ozuna MD Work Phone: [facility] 06-16-2022 influenza virus vaccine, unspecified formulation Maged Goddard MD Work Phone: [facility] 06-02-2021 influenza, injectabl e, quadrivalent, preservative free Yg James Work Phone: [facility] 01-09-2021 Pfizer-BioNTech COVID-19 Vacc 30 MCG/0.3ML Intramuscular Suspension Yg James Work Phone: [id number] Work Phone: 12-19-2020 Pfizer-BioNTech COVID-19 Vacc 30 MCG/0.3ML Intramuscular Suspension Yg James Work Phone: [id number] Work Phone: 08-06-2020 influenza, high dose seasonal, preservative-free Yg James Work Phone: [facility] 08-06-2020 Seasonal, trivalent, recombinant, injectable influenza vaccine, preservative free Belem Remy NP Work Phone: [facility] 08-05-2020 Seasonal, trivalent, recombinant, injectable influenza vaccine, preservative free Sanford Ozuna MD Work Phone: [facility] 07-22-2019 influenza virus vaccine, unspecified formulation Sanford Ozuna MD Work Phone: [facility] 06-28-2015 influenza, injectabl e, quadrivalent, preservative free Yg James Work Phone: [facility] Work Phone: 06-28-2015 influenza virus vaccine, unspecified formulation Reynold Moore MD Work Phone: [facility] 05-17-2010 pneumococcal polysaccharide vaccine, 23 valent Reynold Moore MD Work Phone: [facility] 04-20-2006 tetanus toxoid, redu claudia diphtheria toxoid, and acellular pertussis vaccine, adsorbed Yg James Work Phone: [facility] Payers Date Payer Category Payer Medicaid [id number] 2023 Self-pay [id number] 2020 Unknown 2020 Unknown [id number] 2017 Medicaid [id number] 2017 Medicaid [employer] MEDICAID [employer] MEDICAID [id number] 2017-Present [phone] [address] [place] [address] Medicaid HMO [id number] 1976 Unknown [id number] 2.16.840.1.291560.3.579.2.732 1975 Unknown [id number] 2.16.840.1.839148.3.579.2.593 1976 Unknown [id number] 2.16.840.1.281934.3.579.2.593 1976 Unknown [id number] 2.16.840.1.380247.3.579.2.593 1976 Unknown [id number] 2.16.840.1.980429.3.579.2.593 1976 Unknown [id number] 2.16.840.1.695896.3.579.2.593 1976 Unknown [id number] 2.16.840.1.907164.3.579.2.593 1976 Unknown [id number] 2.16.840.1.476945.3.579.2.593 1976 Unknown [id number] 2.16.840.1.774884.3.579.2.1069 1976 Unknown [id number] 2.16.840.1.095569.3.579.2.1286 1976 Unknown [id number] 2.16.840.1.229505.3.579.2.1286 1976 Unknown [id number] 2.16.840.1.783963.3.579.2.1286 1976 Unknown [id number] 2.16.840.1.420300.3.579.2.1258 1976 Unknown [id number] 2.16.840.1.336256.3.579.2.1258 1976 Unknown [id number] 2.16.840.1.763550.3.579.2.1258 1976 Unknown [id number] 2.16.840.1.923408.3.579.2.1258 1976 Unknown [id number] 2.16.840.1.592489.3.579.2.1258 1976 Unknown [id number] 2.16.840.1.991244.3.579.2.1258 1976 Unknown [id number] 2.16.840.1.837356.3.579.2.1258 1976 Unknown [id number] 2.16.840.1.030449.3.579.2.1258 1976 Unknown [id number] 2.16.840.1.347539.3.579.2.1258 1976 Unknown [id number] 2.16.840.1.824379.3.579.2.6 1959 Unknown [id number] Unknown [id number] 2.16.840.1.393197.3.579.2.531 Unknown [id number] 2.16.840.1.935784.3.579.2.531 Unknown [id number] 2.16.840.1.604107.3.579.2.531 Unknown [id number] 2.16.840.1.228583.3.579.2.531 Unknown [id number] 2.16.840.1.212967.3.579.2.531 Social History Date Type Detail Facility Start: 10-20-2017 End: 05-08-2022 Never a smoker Never a smoker [facility] Comment on above: [employer] Tobacco smoking consumption unknown [facility] Other Phone (unformatted): [phone] Start: 05-16-2021 End: 04-29-2022 Tobacco smoking status NHIS Never smoked tobacco [facility] Work Phone: Start: 10-20-2017 End: 06-16-2022 Alcohol intake Current drinker of alcohol (finding) [facility] Start: 1975 Sex Assigned At Female M [facility] History of tobacco use Cigarette Smoker [facility] Start: 07-06-2012 End: 05-16-2021 Tobacco use and exposure Smokeless tobacco non-user [facility] Start: 09-27-2019 End: 09-18-2022 History SDOH Alcohol Frequency 2 [facility] Start: 09-27-2019 End: 09-18-2022 History SDOH Alcohol Std Drinks 1 [facility] Start: 1975 Sex Assigned At Not on file [facility] Start: 06-06-2022 End: 08-14-2022 Exposure to SARS-CoV-2 (event) Not sure [facility] Start: 06-09-2022 End: 08-08-2022 Exposure to SARS-CoV-2 (event) Unable to assess [facility] Start: 06-10-2022 End: 06-20-2022 Exposure to SARS-CoV-2 (event) Yes [facility] Start: 07-04-2022 End: 11-18-2023 Alcohol intake Ex-drinker (finding) [facility] Start: 09-18-2022 History SDOH Financial 5 [facility] Start: 09-27-2019 End: 05-08-2022 Alcohol Use Disorder Identification Test - Consumption [AUDIT-C] [facility] How often to you hav e a drink containing alcohol? Monthly or less [facility] How many standard dr inks containing alcohol do you have on a typical day? 1 or 2 [facility] Frequency of Binge Drinking Not on file [facility] (I/We) worried kacie er (my/our) food would run out before (I/we) got money to buy more. Never true [facility] In the past 12 month s, was there a time when you were not able to pay the mortgage or rent on time? No [facility] Are you now , , , , never or living with a partner? [facility] How often to you hav e a drink containing alcohol? Never [facility] How hard is it for y ou to pay for the very basics like food, housing, medical care, and heating Somewhat hard [facility] Do you feel stress - tense, restless, nervous, or anxious, or unable to sleep at night because your mind is troubled all the time - these days [OSQ] Only a little [facility] (I/We) worried wheth er (my/our) food would run out before (I/we) got money to buy more. DK or Refused [facility] Start: 05-03-2023 Education 17 [facility] Start: 05-03-2023 Alcohol Comment Caffine intake : couple of cups per week [facility] Start: 01-20-2023 Gender identity Identifies as female gender (finding) [facility] Start: 05-08-2022 Education 16 [facility] Goals Date Patient Goal Desired Activity /State Personal health goal Comment on above: Formatting of this n ote might be different from the original. Evaluation of progress towards goal: safe transition from hospital to home with family support. Comment on above: Formatting of this n ote might be different from the original. Date: 10/27/2016 Arm Size: 37 cm Cuff Size: large adult red Functional Status Date Assessment Result Facility 06-03-2023 Functional status Patient at Baseline [facility] Work Phone: 05-04-2022 Functional status Patient at Baseline [facility] Work Phone: Functional observable [facility] Other Phone (unformatted): [phone] Mental Status Date Assessment Result Facility 06-03-2023 Cognitive function Cognitive Sta tus Patient at Baseline [facility] Work Phone: 05-04-2022 Cognitive function Cognitive Sta tus Patient at Baseline [facility] Work Phone: 12-26-2021 Cognitive functi ons [id number] [facility] Other Phone (unformatted): [phone] 05-30-2021 Cognitive functi ons [id number] [facility] Other Phone (unformatted): [phone] Clinical Notes 07-15-2011 to 11-18-2023 Skylar Coffey APRN-ALEXEI - 11/18/2023 9:20 AM ESTTelephone Encounter - Yenny Cast RN - 11/16/2023 1:16 PM ESTTelephone Encounter - Cecil Schneider APRN.MANAGER 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 - 11/09/2023 7:29 AM EST Note Date & Type Note Facility 11-18-2023 History of Present illness Narrative [address] [place] [id number] Patient: Melina Díaz Date of : 1975 Encounter Date: 11/18/2023 History of Present Illness: The patient is a 48 y.o. female, an established patient, and is here for Chief Complaint Patient presents with Rash . HPI PT is here to establish care. She was a pt in this office over 3 yrs ago then re-established with new PCP, now wants to return here. She also is an ER from [facility] 11/09 (unfortunately no note is available but will obtain from [place]). She went to the hospital because she had right-sided chest and side pain and difficulty breathing and a cough. She was getting nighttime fevers at home. They diagnosed her with community-acquired pneumonia and pleural effusion, these records were obtained from patient's portal on her phone for provider to see today. The ER gave her prednisone 40 mg once daily x5 and doxycycline for 7 days. She is finished with the doxycycline but on November 16 she had a widespread rash that was itchy and burning start to her lower extremities and spread to her ear and right upper arm. She did contact the surgeon and is waiting to hear back about the rash. She has been taking Benadryl 12.5 mg every 4 hours and her previous PCP placed her on 5 more days of 40 mg prednisone daily. She still has feeling of shortness of breath and cough with chest pain on the right. She still has intermittent fevers at night. Patient had a gastric sleeve in 2012 in [place] and developed gastric ulcers so was converted to a gastric bypass by [facility] in 2021. In the last several months she developed increased diarrhea an intolerance to oral intake so was placed on parenteral nutrition. Her GI surgeon is in the midst of determining whether she should have a PEG versus lap J 4 continue nutrition. She has been intolerable of any oral intake besides water and she does swallow some pills. She becomes nauseated with solids and is on multiple nausea medications for this. After she started the doxycycline for community-acquired pneumonia she unfortunately developed C diff again and was also re-started on Flagyl by her GI specialist. Her medications were reconciled today from her patient portal through [facility] from patient's phone. Problem List Items Addressed This Visit Digestive Acute gastric erosion Partial gastric outlet obstruction C. difficile colitis Other Visit Diagnoses Encounter for medical examination to establish care - Primary Pleural effusion, right Community acquired bacterial pneumonia Relevant Orders X-ray chest 2 views Past Medical, Family, and Social History Update: The following portions of the patient's history were reviewed and updated as appropriate: allergies, current medications, past family history, past medical history, past social history, past surgical history and problem list. 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 Hypothyroidism Kidney stone Migraines Peptic ulceration Past Surgical History: Procedure Laterality Date ABDOMINAL ADHESION SURGERY SECTION times 3 CHOLECYSTECTOMY COLONOSCOPY EGD N/A 05/17/2021 Performed by Yg Brock DO at [facility] ESOPHAGOGASTRODUODENOSCOPY ESOPHAGOGASTRODUODENOSCOPY N/A 04/11/2022 Performed by Yg Brock DO at [facility] ESOPHAGOGASTRODUODENOSCOPY DILATATION N/A 05/23/2022 Performed by Chris Chavez MD at [facility] GASTRIC BYPASS sleeve 2011, revision 12/2021 HYSTERECTOMY PARTIAL HYSTERECTOMY THYROID SURGERY nodule removed Current Outpatient Medications Medication Sig Dispense Refill ALPRAZolam (XANAX) 0.5 mg tablet Take 1 tablet (0.5 mg total) by mouth as needed. baclofen 5 mg tablet Q8H cholecalciferol, vitamin D3, 25 mcg (1,000 unit) capsule 1 capsule (1,000 Units total). cyanocobalamin (VITAMIN B-12) 1,000 mcg/mL injection Inject 1 mL (1,000 mcg total) into the appropriate muscle once a week. dextroamphetamine-amphetamine (ADDERALL) 20 mg tablet Take 1 tablet (20 mg total) by mouth in the morning. dicyclomine (BENTYL) 20 mg tablet Twice daily diphenhydrAMINE (BENADRYL) 12.5 mg/5 mL elixir Take by mouth 4 (four) times a day as needed for itching. eletriptan (RELPAX) 40 mg tablet As needed for migranes estradioL (ESTRACE) 0.01 % (0.1 mg/gram) vaginal cream insert 1 gram vaginally two times a week 42.5 g 0 levothyroxine (SYNTHROID, LEVOTHROID) 50 MCG tablet Take 1 tablet (50 mcg total) by mouth in the morning. multivitamin capsule Take 1 capsule by mouth in the morning. ondansetron (ZOFRAN) 4 mg/2 mL injection Inject 2 mL (4 mg total) into the appropriate muscle every 6 (six) hours as needed. ondansetron ODT (ZOFRAN ODT) 8 mg disintegrating tablet Dissolve 1 tablet (8 mg total) on tongue every 8 (eight) hours as needed for nausea or vomiting. oxyCODONE (ROXICODONE) 5 mg/5 mL solution Take 5 mL (5 mg total) by mouth every 4 (four) hours as needed. pantoprazole (PROTONIX) [address] for susp in packet daily. prochlorperazine (COMPAZINE) 5 mg tablet Take 1 tablet (5 mg total) by mouth every 6 (six) hours as needed for nausea or vomiting. 30 tablet 0 Ringer's solution,lactated (lactated ringer's) infusion Infuse 100 mL/hr into a venous catheter as needed. zinc-vit C-pyridoxine, vit B6, 12-60-0.5 mg lozenge Daily briwuq-yffggfky-typcvfw (CREON) 24,000-76,000 -120,000 unit capsule,delayed release(DR/EC) Take 1 capsule (24,000 units of lipase total) by mouth in the morning and 1 capsule (24,000 units of lipase total) at noon and 1 capsule (24,000 units of lipase total) in the evening. Take with meals. octreotide (SandoSTATIN) 100 mcg/mL injection Infuse 1 mL (100 mcg total) into a venous catheter 3 (three) times a day. OLANZapine (ZyPREXA) 5 mg tablet Take 1 tablet (5 mg total) by mouth nightly. predniSONE (STERAPRED DS) 10 mg tablet pack Take 2 tablets (20 mg total) by mouth daily for 3 days, THEN 1 tablet (10 mg total) daily for 3 days. 6 tablet 0 sucralfate (CARAFATE) 1 gram tablet Take 1 tablet (1 g total) by mouth in the morning and 1 tablet (1 g total) at noon and 1 tablet (1 g total) in the evening and 1 tablet (1 g total) before bedtime. (Patient not taking: Reported on 11/18/2023) 120 tablet 3 tiZANidine (ZANAFLEX) 4 mg tablet TAKE 1 AND 1/2 TABS BY MOUTH EVERY 8 HRS NEEDED FOR MUSCLE SPASM venlafaxine XR (EFFEXOR XR) 75 mg 24 hr capsule Take 1 capsule (75 mg total) by mouth in the morning. Indications: anxiousness associated with depression. No current facility-administered medications for this visit. (All medications reviewed and updated by provider since last office visit or hospitalization) Allergies: Aspartame, Gabapentin, Ketorolac tromethamine, Morphine, Tramadol, Adhesive tape-silicones, Doxycycline, and Tape [adhesive] Tobacco History: Social History Tobacco Use Smoking Status Never Smokeless Tobacco Never (If patient a smoker, smoking cessation counseling offered) Social History: Social History Substance and Sexual Activity Alcohol Use Not Currently Review of Systems: Review of Systems Physical Exam: BP 120/84 (BP Site: Right Arm, BP Postition: Sitting) Pulse 96 Temp 37.1 C (98.7 F) (Oral) Ht 170.2 cm (5' 7 ) Wt 90.4 kg (199 lb 3.2 oz) SpO2 95% BMI 31.20 kg/m Physical Exam Vitals reviewed. Constitutional: General: She is not in acute distress. Appearance: Normal appearance. She is obese. She is not ill-appearing. HENT: Head: Normocephalic and atraumatic. Cardiovascular: Rate and Rhythm: Normal rate and regular rhythm. Heart sounds: Normal heart sounds. Pulmonary: Effort: Pulmonary effort is normal. Breath sounds: Normal breath sounds. Skin: Comments: PICC to left arm Neurological: General: No focal deficit present. Mental Status: She is alert and oriented to person, place, and time. Psychiatric: Mood and Affect: Mood normal. Behavior: Behavior normal. Assessment and Plan: Melina was seen today for rash. Diagnoses and all orders for this visit: Encounter for medical examination to establish care Pleural effusion, right Community acquired bacterial pneumonia - X-ray chest 2 views; Future C. difficile colitis Acute gastric erosion Partial gastric outlet obstruction Other orders - predniSONE (STERAPRED DS) 10 mg tablet pack; Take 2 tablets (20 mg total) by mouth daily for 3 days, THEN 1 tablet (10 mg total) daily for 3 days. Follow-up: Will recheck chest x-ray at the [facility] to determine if there has been interval improvement in the community-acquired pneumonia and pleural effusion. Avoid doxycycline in the future. She may continue to take the 12.5 mg of Benadryl for the rash and use cool compresses or cool showers. Will continue prednisone and taper after the 10 days of 40 mg daily. Patient is on a PPI currently for GI protection. She should attempt to stay well hydrated with the recurrent bout of C difficile. Patient will need close follow-up for multiple medical problems as listed above. There are 3 new medical problems with exacerbation and prescription drug management. NESSA DAMON APRN-CNP 11/18/23 1401 documented in this encounter [facility] 11-16-2023 Miscellaneous Notes BMI SPECIALTY CARE COORDINATION TELEPHONE ENCOUNTER F/U call on next POC. LVM and contact info. Spoke to [facility] radiology dept and CT and GES images will be electronically sent. Pt sent report copies of CT scan of abd/pelvis from 11/04/2023. Addendum Pt returned call shortly afterwards and discussed Dr Dale would review the Images and then confirm surgical plan. I will update. documented in this encounter [facility] 11-09-2023 Miscellaneous Notes Patient was looking into ketamine near her house as [facility] location is too far. She was also going to look at location in [facility]. She has failed multiple medications (gabapentin, lyrica, robaxin, baclofen, zanaflex, elavil, paxil) Next step would be Chronic pain recovery program Cecil Schneider APRN.ALEXEI Last televisit 09-27-2023, discussed ketamine infusion and placed on waiting list, pt requesting something for pain until ketamine can be infused, states was in the hospital and they gave her oxycodone and it helped. Please advise documented in this encounter [facility] 11-06-2023 History and physical note Virtual Visit (Audio/Visual) I have discussed the nature of this visit with the patient which will occur via [facility] (Phone, Virtual Visit) and she agrees to proceed with this interaction . Section of Advanced Laparoscopic Surgery, Bariatric Surgery, and Surgical Endoscopy Consultation November 06, 2023 Melina Díaz 48 year old Chief Complaint: FTT History of Present Illness: Melina Díaz is a 48 year old year old female: Initial sleeve gastrectomy 2012, , developed ulcers s/p conversion gastric bypass at , 2021, for weight gain, reflux s/p revision for stricture, required another revision for ulcer at , Jul 2022 by Joaquim, much improved, but now developing: Worse diarrhea, has required feeding tube, [place]. Abdominal pain. Subjective fever. Unable to hydrate. Needs enteral access. Severe diarrhea. PAST MEDICAL HISTORY Diagnosis Date Breast mass 11/04/2007 Right, biopsy benign Encounter for cosmetic surgery Endometriosis Excess skin of arm Fracture , ankle Localized adiposity Morbid obesity (HCC) Ovarian cyst Thyroid disorder PAST SURGICAL HISTORY Procedure Laterality Date ASSIST ONLY x3 EGD multiple GASTRIC BYPASS HX 12/2021 conversion from gastruc sleeve LAPAROSCOPY SURG CHOLECYSTECTOMY 2005 Cholecystectomy, lap PAST SURGICAL HISTORY OF 10/28/2011 gastric sleeve PAST SURGICAL HISTORY OF 2011 excision of goiter PAST SURGICAL HISTORY OF thyroid mass removed REMOVAL STOMACH,GELACIO-EN-Y 07/29/2022 TOTAL ABDOMINAL HYSTERECT W/WO RMVL TUBE OVARY 05/01/2010-05/2011 Hysterectomy, partial uterus then completion Current Outpatient Medications Medication Sig Dispense Refill cholecalciferol, Vitamin D3, (VITAMIN D3) 1,250 mcg (50,000 unit) cap capsule Take 1 capsule by mouth two times a week. 24 capsule 0 venlafaxine ER (EFFEXOR XR) 75 mg 24 hr capsule Take 1 capsule by mouth once daily. 30 capsule 2 octreotide acetate 100 mcg/mL (1 mL) Inject 1 mL subcutaneously two times a day. 60 mL 2 nut.tx.impair fzhai-xazuxa-YPJ (PEPTAMEN 1.5 DELMY WITH PREBIO1) 0.068 gram- 1.5 kcal/mL liqd peptamen 1.5 or equivalents: total calories: 1210/ day(22 hours), tf goal rate: 55/hr, water flushes: 150 ml every 4 hours, diet: regular diet, hold 1 hour before and after the synthroid 1000 mL 3 ondansetron orally disintegrating (ZOFRAN ODT) 8 mg disintegrating tablet Take 1 tablet by mouth every 8 hours as needed for nausea/vomiting. 21 tablet 1 eletriptan (RELPAX) 40 mg tablet Take 40 mg by mouth as needed. May repeat dose after 2 hours if needed. Maximum daily dose is 80 mg per day. oxyCODONE (ROXICODONE) 5 mg/5 mL oral solution Take 7.5 mg by mouth as needed for pain. Every 4-6 hours diphenhydrAMINE (BENADRYL) 25 mg capsule Take 50 mg by mouth every 6 hours as needed for itching/rash. OLANZapine (ZYPREXA) 5 mg tablet Take 1 tablet by mouth daily at bedtime. 30 tablet 0 baclofen 5 mg tablet Take 1 tablet by mouth three times a day. 270 tablet 5 dicyclomine (BENTYL) 20 mg tablet Take 1 tablet by mouth two times a day. 200 tablet 5 euiqcn-cdagsjqp-qfouhlf (CREON) 24,000-76,000 -120,000 unit delayed release capsule Take 1 capsule by mouth three times a day with meals. 270 capsule 1 tiZANidine (ZANAFLEX) 4 mg tablet Take 1 tablet by mouth every 8 hours as needed. levothyroxine (SYNTHROID) 50 mcg tablet Take 50 mcg by mouth. cyanocobalamin, vitamin B-12, (B-12 COMPLIANCE) 1,000 mcg/mL kit 1 mL by INJECTION(UNSPECIFIED PARENTERAL ROUTES) route one time a week. ALPRAZolam (XANAX) 0.5 mg tablet Take 0.5 mg by mouth at bedtime as needed. No current facility-administered medications for this visit. ALLERGIES Allergen Reactions Gabapentin Angioedema Patient reports throat swelling with gabapentin. Tramadol Hives Adhesive Tape (Serina* Rash, Swelling, Itching Nsaids (Non-Steroid* Contraindication-Medical Surgical S/p gelacio en y gastric bypass Paxil [Paroxetine] Intolerance Gi upset Scopolamine Other: See Comments Blurred vision Toradol [Ketorolac * Hives, Swelling FAMILY HISTORY Problem Relation Age of Onset COPD Mother Hypertension Mother other (hypoglycemia) Mother Emphysema Father Coronary Artery Disease Father Ischemic Heart Disease Father 58 s/p stents Hypertension Father Asthma Sister 1/2 sister with female cysts other (unkown) Sister BiPolar-Bulemia None Brother 1/2--unkown Thyroid Other 1st cousin - ? Grave's Social History Tobacco Use Smoking status: Never Smokeless tobacco: Never Vaping Use Vaping Use: Never used Substance Use Topics Alcohol use: Not Currently Drug use: No Comment: denies tx for drug/alcohol abuse in the past. Review of Systems: GENERAL: Weight loss RESPIRATORY: Negative for cough, hemoptysis, wheezing, COPD, dyspnea or shortness of breath CARDIOVASCULAR: Negative for chest pain, leg swelling, hypertension, CHF or palpitations GI: See HPI : No history of dysuria, frequency or incontinence MUSCULOSKELETAL: Negative for joint pain or swelling, back pain or muscle pain Physical Exam: There were no vitals taken for this visit. General Appearance: Well appearing, alert, in no acute distress, well-hydrated, well nourished. Psych: ORIENTATION: normal to time place, person and situation AFFECT AND MOOD: Normal Diagnostic tests reviewed for today's visit: Recent EGD All outside imaging and records were reviewed with the patient during consultation. Assessment Assessment and Plan: Melina Díaz is a 48 year old female need op notes- 2 revisions from , CC. CT. Needs enteral access. Based on these images will need PEJ versus lap j and possible proximilization for diarrhea. Chris Dale MD Advanced Laparoscopic Surgery, Bariatric Surgery, and Surgical Endoscopy documented in this encounter [facility] 11-04-2023 Miscellaneous Notes Attempted to call pt, got identified VM and left message asking for return call for more detail on symptoms. Ninoska Aguilar RN Pt left VM on 11/03 that was picked up today, said has had fever 102-103 last few days, more nausea, cannot keep anything down, Went to PCP and they did some tests but all what they did was negative and were going to fax what done and told pt to call our office, our issue. Ninoska Aguilar RN\ documented in this encounter [facility] 11-03-2023 Miscellaneous Notes Pt called and wanted to know if appt made for Gen Surg appt with Dr. Dale. Reviewed with pt that showing upcoming appt with Dr. Dale, gave pt date and time showing as scheduled. Ninoska Aguilar RN documented in this encounter [facility] 11-03-2023 Miscellaneous Notes Pt is currently scheduled with Dr Dale for initial visit 12/11/23, No further actions needed at this time. Erasmo Romero RD, CNSC Patient does not want to schedule a follow up appt with Dr. Zafar until a J-tube appointment is set up. Patient ph: [phone] documented in this encounter [facility] 10-28-[address] [facility] 10-28-2023 History of Present illness Narrative Images from the original note were not included. [facility] Virtual Visit Follow-up This is a virtual visit. It required patient-provider interaction for the medical decision making as documented below. The patient verbally consented to a Virtual Visit with telephone back up as necessary. I have communicated my name and active licensure. The patient's identity and physical location were verified at the time of this visit. Either the patient or their legal security systems sales representative has been informed of the risks and benefits of and alternatives to treatment through a remote evaluation and consents to proceed with the evaluation remotely. Start Time 0900; End Time 09 This is a 48 year old year old female with a h/o sleeve gastrectomy with conversion to gastric bypass, who recently underwent revision of gastrojejunostomy. She continues with a physiology of diarrhea/malabsorption since 04/2023. She has been referred to the RT from Dr Maged Goddard ([facility]) for management of diarrhea/malabsorption. Pt was last seen by Dr. Zafar 10/06/23 patient reported recent dx of C difficile colitis (09/22/2023), still with severe diarrhea and vomiting; went to ED on 09/25/23 for abd pain, N/V; was provided with IVF, received 2 infusions of 1L NS once last week, and once yesterday. Patient is not prescribed another set of IVF infusions until she sees her PCP tomorrow. She is unable to keep down liquids/nutrition despite taking anti-nausea medications and is inquiring about starting PN for nutrition support. Also describes having fevers (99F; under tongue) and chills. Since visit, she met with Dr. Engel and she she will start octreotide 100 mcg BID (now approved). If dumping has not improving they will consider EGD + APC for it. Patient missed appointment on 10/15 due to prolonged hospitalization for C.diff and reportedly diagnoses with gastroparesis. Today, patient reports she spent about 2.5 weeks in the hospital; unable to see imaging records for colonoscopy or gastroparesis study. Patient will try to have these records sent to our office. PICC was placed yesterday per PCP orders for lactated ringers due to high blood pressure , she is vomiting everything she is eating. HHC RN told her she should be in the hospital but patient is hesitant to return. Overall patient has gained several pounds since last visit, reported she was eating better in the hospital than she is now. Patient inquiring about PN however given tolerance of enteral nutrition in the past, patient would be a candidate for a J tube. Patient has been on home IV Fluids intermittently since 09/2023 for a condition of malabsorption and inadequate PO intake. Plans are to continue with IV Fluids until patient transitions to enteral nutrition. Patient reports no problems with IVF infusions at this time. Patient reports no fevers at home. Patient has a left 2L PICC line placed 10/27/23 unknown tip placement. Some tenderness and fresh blood observed at the catheter exit site as it was just placed yesterday. Patient is not prescribed 50% ethanol lock therapy. Does patient have homecare nursing? YES If not attending this visit virtually, patient would travelled via automobile Last Intestinal Surgery: 07/29/2022: Lap revision of gastrojejunostomy; additional SBR (-6 cm) ([facility] Dr Ozuna). R robotic assisted vagotomy ([facility] Dr Griffin) 12/2021: Conversion to gastric bypass ([facility]); never able to get passed pureed stage of diet 2011: Gastric Sleeve Anatomy: Per Surgical history, she has gastric pouch to jejunum/small bowel to colon, +rectum/anus Co-morbidities: Chronic pain; mid-abdomen radiating to back; on oxy which helps Home PN 2021 prior to stomach surgery (PN for ~2 months) Home IVF 09/2023- present ED visits for hydration ([facility]; [facility] [place]) Anxiety H/o pancreatitis Intake: Appetite is poor, no appetite whatsoever. She will have pain after eating for hours , reports laying down makes it feel better. Can't keep water or pills down. Normally will eat small meals several times a day however given vomiting overall oral intake is reduced. She reports she was eating better in the hospital when she had 24 hour IV zofran, and her PCP is ordering this for her again. She has tried fairlife protein shakes but has vomited it. Unable to clarify overall fluid intake. Diet Recall: Beverages: propel diluted with water, ice chips, fairlife on and off PN/IV/EN: Patient takes 2 liters of IVF lactated ringers 7 days per week. This started on 10/27/23. This is managed by PCP. Home Care: [facility]: [phone] IV Pharmacy: unknown Output: Urine output is estimated to be adequate and light yellow in color, urinating about 5-6 times per day. Today, she reports she has had 8 bowel movements so far, pure liquid. Will also have diarrhea in the middle of the night. Had some blood in the hospital, only some dark stools since discharge. Also notes bloating and distention. Laboratory: Lab Collected 10/06/2023 Na (mEq): 139 (136-144) K (mEq): 3.9 (3.7-5.1) Cl (mEq): 104 (97-105) CO2 (mmol/L): 26 (22-30) BUN (mg/dL): 9 (7-21) Creatinine (mg/dL): 0.59 (0.58-0.96) Glucose (mg/dL): 101 (H: 74-99) Calcium (mg/dL): 9.3 (8.5-10.2) Total Protein (g/dL): 6.6 (6.3-8) ALT (U/L): 35 (7-38) Alb (g/dL): 4.1 (3.9-4.9) AST (SGOT, U/L): 32 (13-35) Alk Phos (g/dL): 108 (34-123) Total Bili (mg/dL): 0.4 (0.2-1.3) Mg (mg/dL): 2 (1.7-2.3) PO4 (mg/dL): 4 (2.7-4.8) WBC (K/uL): 5.73 (3.7-11) Hgb (g/dL): 12.5 (11.5-15.5) Hct (%): 38.3 (36-46) MCV (fL): 89.1 (80-100) RDW (%): 13.8 (11.5-15) Platelet (K/uL): 273 (150-400) Pro-Time (sec): INR: Vitamin A (ug/dL): 0.32 (0.3-1.2) Vitamin D 25 (ng/dL): 10.7 (L: 31-80) Zinc (ug/dL): 52 L (60-120) Medications: Current Outpatient Medications Medication Sig cholecalciferol, Vitamin D3, (VITAMIN D3) 1,250 mcg (50,000 unit) cap capsule Take 1 capsule by mouth two times a week. venlafaxine ER (EFFEXOR XR) 75 mg 24 hr capsule Take 1 capsule by mouth once daily. octreotide acetate 100 mcg/mL (1 mL) Inject 1 mL subcutaneously two times a day. nut.tx.impair gvbeh-xrprab-IRL (PEPTAMEN 1.5 DELMY WITH PREBIO1) 0.068 gram- 1.5 kcal/mL liqd peptamen 1.5 or equivalents: total calories: 1210/ day(22 hours), tf goal rate: 55/hr, water flushes: 150 ml every 4 hours, diet: regular diet, hold 1 hour before and after the synthroid ondansetron orally disintegrating (ZOFRAN ODT) 8 mg disintegrating tablet Take 1 tablet by mouth every 8 hours as needed for nausea/vomiting. eletriptan (RELPAX) 40 mg tablet Take 40 mg by mouth as needed. May repeat dose after 2 hours if needed. Maximum daily dose is 80 mg per day. oxyCODONE (ROXICODONE) 5 mg/5 mL oral solution Take 7.5 mg by mouth as needed for pain. Every 4-6 hours diphenhydrAMINE (BENADRYL) 25 mg capsule Take 50 mg by mouth every 6 hours as needed for itching/rash. OLANZapine (ZYPREXA) 5 mg tablet Take 1 tablet by mouth daily at bedtime. baclofen 5 mg tablet Take 1 tablet by mouth three times a day. dicyclomine (BENTYL) 20 mg tablet Take 1 tablet by mouth two times a day. pksgyp-ajmgeark-pguzwhv (CREON) 24,000-76,000 -120,000 unit delayed release capsule Take 1 capsule by mouth three times a day with meals. tiZANidine (ZANAFLEX) 4 mg tablet Take 1 tablet by mouth every 8 hours as needed. levothyroxine (SYNTHROID) 50 mcg tablet Take 50 mcg by mouth. cyanocobalamin, vitamin B-12, (B-12 COMPLIANCE) 1,000 mcg/mL kit 1 mL by INJECTION(UNSPECIFIED PARENTERAL ROUTES) route one time a week. ALPRAZolam (XANAX) 0.5 mg tablet Take 0.5 mg by mouth at bedtime as needed. No current facility-administered medications for this visit. Prior response to CGRT therapy: ORS: liquid IV, pedialyte; does not feel hydrated Benefiber: takes Benefiber in morning; does not feel like it helps Imodium: previously took up to 10 pills daily; did not help Lomotil: tried; did not help Codeine: has tried; did not help Tincture of Opium: has tried; did not help Pancreatic Enzymes: Creon 24 3 caps with meals and does not know if this helps. Noting low pancreatic elastase level in 04/2023 Probiotics: previously took OTC daily, can't remember brand - no longer taking and did not feel helped Antimicrobials: cipro, xifaxin for SIBO; helped with gas/burping/bloating Antisecretory: PPI capsules (opened), carafate - for mild chronic inflammation Bile acid binding resin: cholestyramine made diarrhea worse Growth Hormone: N/A GLP2: N/A Enteral Nutrition: has been on both Nutren 1.5 and Peptamen 1.5 - unable to clarify which feeds she tolerated better, initailly patient reported best tolerance to Nutren, then said the one with the P . I have reviewed allergies and medications. PAST MEDICAL HISTORY Diagnosis Date Breast mass 11/04/2007 Right, biopsy benign Encounter for cosmetic surgery Endometriosis Excess skin of arm Fracture , ankle Localized adiposity Morbid obesity (HCC) Ovarian cyst Thyroid disorder PAST SURGICAL HISTORY Procedure Laterality Date ASSIST ONLY x3 EGD multiple GASTRIC BYPASS HX 12/2021 conversion from gastruc sleeve LAPAROSCOPY SURG CHOLECYSTECTOMY 2005 Cholecystectomy, lap PAST SURGICAL HISTORY OF 10/28/2011 gastric sleeve PAST SURGICAL HISTORY OF 2011 excision of goiter PAST SURGICAL HISTORY OF thyroid mass removed REMOVAL STOMACH,GELACIO-EN-Y 07/29/2022 TOTAL ABDOMINAL HYSTERECT W/WO RMVL TUBE OVARY 05/01/2010-05/2011 Hysterectomy, partial uterus then completion Anthropometrics: Height: 5' 8 (1.72 m) Weight: 191 lbs/86 kg (10/15/23); 83.9 kg (09/25/23 from ED visit); 84.9 kg (07/27/23); 86 kg (07/13/23); 86.2kg (06/24/23) 88.8kg (04/22/23), 93.4kg (09/28/22), 92.8kg (08/29/22) Usual weight: 86 kg in past year Goal weight: 86 kg BMI: 29.15 kg/m2- overweight Weight has increased by 2.1 kg over the past month. Overall relatively stable from June. Estimated Daily Nutritional Needs: 1720 - 2150 kcals/day = 20 - 25 kcals/kg dosing weight 86 - 129 g protein/day = 1.0-1.5 g/kg dosing weight Nutrition Focused Physical Exam: Unable to perform exam due to: virtual visit. Will re-attempt during next in person office visit reassessment. Edema: No Functional status: Functional capacity is unrelated to nutrition status Potential Signs of Inflammation: unable to determine at this time Potential micronutrient deficiency revealed in Unable to determine at this time ASSESSMENT OF MALNUTRITION: UNABLE TO IDENTIFY MALNUTRITION AT THIS TIME virtual visit Overall Assessment: Multiple bariatric surgeries H/o C difficile colitis Vitamin D deficiency CGRT Recommendations: Diet: as tolerated. Once intake improves, patient to follow Hi salt, Hi starch, and Low simple sugar food choices with multiple small meals; sip fluids between meals Soluble Fibre: Consider supplement daily to help with stooling Oral Rehydration Solution (ORS): aim for ORS to 1.5 liters sipped throughout the day ONS: Continue Fairlife protein shake as tolerated PN: Not indicated at this time due to potential for EN access and previous tolerance to tube feeding EN: indicated for inadequate po intake/ po intolerance (N/V) - Would plan for placement of J tube with 24h at least observation period - Would recommend starting with a more standard product (Nutren 1.5) unless patient indicates that Peptamen 1.5 was better tolerated previously (differing reports). History of both Peptamen 1.5 at 55 mL/hr x 24 hours and Nutren 1.5 at 75 ml/hr over 18 hrs (provided 1200 ml product, 1800 kcals, 82 g protein, 916 ml free water. Flush 30 ml every 4 hrs for tube patency - Recommend 2 cartridges of Relizorb in tandem every 24 hrs (hx low pancreatic elastase) - could be started on this in hospital while paperwork is submitted so that patient can have 30 day courtesy supply as a bridge until approved PN: Not indicated at this time Vitamin & Mineral Supplements: - Continue bariatric vitamin daily - Continue Zinc 50 mg daily - Continue Vitamin D3 50,000 units twice weekly. Discontinued 1000 units daily. - Continue Vitamin B12 1000 mcg injection once monthly - Continue Calcium Citrate 950 mg BID Pancreatic enzyme replacement: Continue Creon 24, take 1 tablets with meals and snacks Other: Continue with pelvic floor therapy Other: Promethazine and 8 mg Zofran daily every 6 hours. Also has IV Zofran ordered per PCP. Other: Patient to send in colonoscopy and gastric emptying reports from outside hospital Labs: (WHAT) CMP, CBC, Mg, Phos (WHEN) due 1 week (WHERE) Coordinator to generate lab script (HOW) fax to [facility]: [phone] Referrals: Dr. Dale for J tube placement Patient Group: CGRT Follow Up: Return to clinic in [address] Zafar and CGRT. Potential to sign off at next visit if no plans to initiate CGRT Therapies (anti diarrheals, etc) as patient is already established with BMI dietitian Signed by: Zita Adkins RD Date: October 28, 2023 [facility] STAFF PHYSICIAN NOTE OF PERSONAL INVOLVEMENT IN CARE I have reviewed the progress note obtained and documented by the Nutrition Clinician DIONNE Mckeon. I have explored in detail with the patient the HPI and ROS, and they are summarized below. I have discussed the case and management of the patient's care with the Nutrition Clinician. I agree with the recommendations as outlined by clinician above. I have reviewed available labs, and my exam and A/P are as follows: Melina Díaz is a 48 year old FEMALE with history of Gastric sleeve (2011) with conversion to Gastric bypass (2021) with lap revision of gastrojejunostomy with ongoing issues with diarrhea, nausea and vomiting. Also history of hypothyroidism, ADHD, Vitamin D deficiency and pre diabetes. Placed on EN in Aug 06 complicated by worsening diarrhea, however dislodged tube 10/07 and new found PCR+Cdiff. Seen in follow up. Last Seen in Clinic on 10/06/23, Where the plan was to arrange for a Flex Sig and continue with ONS. Today patient states she was in hospital for 14 days. Apparently had GES that was slow? Colonoscopy were done with Pathology. States has been getting worse since being in hospital, SBP mmHg 168. Has profound nausea and vomiting, low appetite not eating. She has diarrhea 4-6 times, has vomiting with and without eating, post prandial pain, helps with laying down. 8 bowel movements since 5am this morning, liquid diarrhea, had a little blood in hospital and ?dark stools, but none today. No undigested food. Has bloating in the AM and worsens throughout the day Oral intake she was better in the hospital, she was taking in 75% of food in multiple small amounts. Magnesium was low in the hospital, taking zinc 50mg and Vitamin D3. Picc line- placed yesterday at 11am. 2L RL. No issues with the line Urine output she is going 5-6 times a day. 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 No swelling in legs, no SOB, no CP. Nausea constantly. Will vomit even when not eating. Alternates promethazine takes every 6 hours, rotate with zofran 8mg under the tongue. Oral intake- Sporadic, some days she is not taking any by mouth She is taking Propel 1 bottle with diluting with water. Ice chips. Fair life- immediately after drinking it. Not eating anything else. Takes creon 1 capsule with meals Olanzapine 5mg at night Bentyl for cramping Weights: 10/28/23 - 191lbs Weight 83.9 kg (185 lb) 09/25/2023 11:34 AM EST Weight 87.5 kg (193 lb) 09/21/2023 10:42 AM EST 08/27/23 182-185lbs 08/07/2023 89 kg (196 lb 3.4 oz) 08/05/2023 83.9 kg (185 lb) 07/27/2023 84.9 kg (187 lb 3.2 oz) 07/17/2023 86.2 kg (190 lb) 07/14/2023 86.2 kg (190 lb) ROS: ROS completed and negative outside of the systems documented in the HPI. INVESTIGATIONS: All available pertinent interval investigations were reviewed and were notable for: ENDOSCOPY/PATHOLOGY: EGD 07/28/23 Impression: - Normal hypopharynx. - No gross lesions in the entire esophagus. - Z-line regular. - Gastric bypass with a pouch 5.5 cm in length and intact staple line. Gastrojejunal anastomosis characterized by healthy appearing mucosa. - Normal examined jejunum. - No specimens collected. 04/23/2023 Colonoscopy Findings: The perianal and digital rectal examinations were normal. A few small-mouthed diverticula were found in the sigmoid colon. The exam was otherwise without abnormality. Biopsies for histology were taken with a cold forceps from the right colon, left colon and transverse colon for evaluation of microscopic colitis. Estimated blood loss was minimal. Impression: - Diverticulosis in the sigmoid colon. - The examination was otherwise normal. - Biopsies were taken with a cold forceps from the right colon, left colon and transverse colon for evaluation of microscopic colitis. FINAL DIAGNOSIS A. Colon, biopsy: - Colonic mucosa with no significant pathologic changes. IMAGING: ARM 07/13/23 Reason for testing: diarrhea Ileoanal pouch: No Anorectal Manometry Testing: Strength: Anorectal manometry was performed. Average Pressure Interpretation Rest: 58 mmHg This is above normal range. Normal range is 35-50 mmHg. Squeeze: 105 mmHg This is above normal range. Normal range is 75 - 100 mmHg. Resting and squeeze pressures well above normal may indicate high pelvic floor tension. There is appropriate incremental change between resting and squeeze pressures which can indicate good pelvic floor movement with squeeze. Sensory: Sensation Volume First sensation : 20 mL / Normal Range: 40-80 mL First urge to defecate: 35 mL / Normal Range: 80-120 mL Maximum tolerable volume: 65 mL / Normal Range: 120-180 mL Recto-anal inhibitory reflex: Yes Balloon expulsion: No This exhibit hyperacute rectal sensation with at least 2/3 sensory tests. A recto-anal inhibitory reflex (RAIR) was present. This is a normal reflex. EMG Recruitment: EMG recruitment was performed. The patient shows a normal increase in activity with squeeze, and no change in activity with valsalva. This indicates abnormal pelvic floor movement, which can be indicative of poor pelvic floor coordination. Anabelle Potter APRN.MANAGER 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 Pelvic Floor Colorectal Surgery I have reviewed, verified, and confirmed the results of anorectal manometry, rectal sensation, tone and compliance testing and EMG testing. I agree with the impression as written above. Felisha Nino, DO Colon & Rectal Surgery 07/03/2023 MRI Panc/Jimbo IMPRESSION: Mild pancreatic atrophy but no cystic or solid mass, or other findings to explain diarrhea. Mild central bile duct prominence is likely postcholecystectomy change. Expected changes following Gelacio-en-Y gastric bypass. 04/21/2023 CT ABD/PEL IMPRESSION: 1. Mild colitis, likely infectious or inflammatory. LAB WORK: See Above Celiac screen is negative Latest Reference Range & Units 10/06/23 13:57 Sodium 136 - 144 mmol/L 139 Potassium 3.7 - 5.1 mmol/L 3.9 Chloride 97 - 105 mmol/L 104 CO2 22 - 30 mmol/L 26 BUN 7 - 21 mg/dL 9 Creatinine 0.58 - 0.96 mg/dL 0.59 Glucose 74 - 99 mg/dL 101 (H) Protein, Total 6.3 - 8.0 g/dL 6.6 Calcium 8.5 - 10.2 mg/dL 9.3 Magnesium 1.7 - 2.3 mg/dL 2.0 Phosphorus 2.7 - 4.8 mg/dL 4.0 Albumin 3.9 - 4.9 g/dL 4.1 Bilirubin, Total 0.2 - 1.3 mg/dL 0.4 Alkaline Phosphatase 34 - 123 U/L 108 ALT 7 - 38 U/L 35 AST 13 - 35 U/L 32 Anion Gap 9 - 18 mmol/L 9 eGFR >=60 mL/min/1.73m 112 Vitamin A 0.30 - 1.20 mg/L 0.32 Vitamin D 25 Hydroxy 31.0 - 80.0 ng/mL 10.7 (L) Zinc 60 - 120 ug/dL 52 (L) WBC 3.70 - 11.00 k/uL 5.73 RBC 3.90 - 5.20 m/uL 4.30 Hemoglobin 11.5 - 15.5 g/dL 12.5 Hematocrit 36.0 - 46.0 % 38.3 Platelet Count 150 - 400 k/uL 273 (H): Data is abnormally high (L): Data is abnormally low Stool Studies: 09/22/23- C diff PCR + Component Latest Ref Rng & Units 03/27/2023 04/03/2023 04/08/2023 04/21/2023 06/12/2023 Total Weight, Feces g 470 10 Collection Period (FECFAT) h Random Random Fat Quant, Feces DNR DNR Fat %, Feces <20 % fat 29 (H) 48 (H) Shigella spp./Enteroinvasive E.coli DNA Not Detected Not detected Not detected Campylobacter jejuni/coli DNA Not Detected Not detected Not detected Shiga toxin-producing gene(s) Not Detected Not detected Not detected Salmonella spp. DNA Not Detected Not detected Not detected Cryptosporidium Antigen by EIA Negative Negative for Cryptosporidium by EIA. Negative for Cryptosporidium by EIA. Giardia Antigen by EIA Negative Negative for Giardia lamblia by EIA. Negative for Giardia lamblia by EIA. C. difficile PCR Negative for C. difficile toxin by PCR Negative for C. difficile toxin by PCR Negative for C. difficile toxin by PCR Negative for C. difficile toxin by PCR Ova and Parasite Exam No Parasites Seen Occult Blood Exam Screen Negative Negative Panc Elastase, Fecal >=100 ug/g 61 (L) *Diarrhea sample* Physical Exam: (limited due to VV) General: Appears resting comfortably Skin: Left dual line site appears healthy Neurologic: Awake and alert. Assessment IMPRESSION: Melina Díaz is a 48 year old female with history of Gastric sleeve (2011) with conversion to Gastric bypass (2021) with lap revision of gastrojejunostomy with ongoing issues with diarrhea, nausea and vomiting. Also history of hypothyroidism, ADHD, Vitamin D deficiency and pre diabetes. Placed on EN in Aug 06 complicated by worsening diarrhea, however dislodged tube 10/07 and new found PCR+Cdiff. Seen in follow up. Melina Díaz had the opportunity to have all their concerns and questions addressed DIAGNOSTIC ISSUES AND PLAN: #) Nutritional Status Moderate malnutrition Prior blood work has been normal other than low amount of zinc, she is on IVF now, weight is up by 6 lbs with no swelling. At this time would not recommend PN given risk for infection and metabolic derangements and prior discussions were around starting with EN prior to PN. Reassuring she did tolerate EN in [place], however she did displace it with nausea but tolerated the tube feeds. Will arrange for a J tube placement through referral to Dr. Dale. Advised she can also use the tube for medications. She has had nausea and vomiting since I have known her in 08/06, this is in context both with eating and fasting. Suspect this will take time to resolve and having EN access would be beneficial going forward. #) NV/Diarrhea She has wax and wane episodes of worsening symptoms, she has had diarrhea and vomiting back in Aug 06. We will obtain the records for the colonoscopy, GES and biopsies. Advised for her to stop the octreotide and reach out to Dr. Meredith as tightening the anastomosis. FOLLOW-UP: 2-3 weeks in person Hamlet Zafar MD, MSc, [facility], [facility] Associate Staff, Department of Gastroenterology, Hepatology & Nutrition [facility] [place] 10/28/23 Total time of this patient encounter today was >45 mins, including: preparation for visit, direct time with the patient, examination, orders, review of records, and documentation. documented in this encounter [facility] 10-28-[address] [facility] 10-28-2023 History of Present illness Narrative TELEMEDICINE VISIT -- zoom Consented for encounter Patient verified by name and Melina Dumont Díaz [id number] 1975 [address] Echeverria SUBJECTIVE: The patient presents to [facility] Pain Management Department for pain in the abdomen. Her abdominal pain has been persistent. She was recently in hospital the last 2 weeks for severe abdominal pain. She was found to have gastroparesis. She is currently has a PICC line and receiving nutrition through there. She is scheduled in a couple weeks for G-tube. She also has a history of dumping syndrome. When she was discharged home from the hospital she was giving oxycodone 10 mg to take as needed. Side effects from gabapentin and lyrica. Failed: Robaxin, baclofen, zanaflex, elavil, paxil, oxycodone She is currently on wait list for ketamine --- unable to come to [place] It is described as: aching(+) burning(+) stabbing(-) The patient rates it as a 10/10. The pain is worse when the patient performs the following actions: constant. FH: patient denies any family history of the chief complaint for this visit SH: denies illicit drug use Is the patient receiving analgesia/pain relief from the current medications? (+) Has the current medication improved activities of daily living? (+) Have the current medications been associated with any adverse events? (-) Has the patient displayed any aberrant drug-related behaviors? (-) Last took opioid medication: today Relevant [place] records were reviewed. ASSEMMENT AND MEDICAL DECISION MAKING The patient is a 48 year old female with abdominal pain following bariatric bypass. She was recently diagnosed with gastroparesis. She also has a history of vomiting syndrome. She is scheduled in a couple weeks for J-tube. She is currently using PICC line for nutrition. She has failed multiple medications. Discussed avoiding opioids due to her new diagnosis of gastroparesis which patient is in agreement with. She is interested in ketamine infusion she is unable to come to [facility] for treatment. We discussed discussed finding treatment centers near her house. Dx: Chronic pain syndrome (primary encounter diagnosis) Generalized abdominal pain Neuralgia and neuritis H/o gastric bypass PLAN 1) Ketamine infusion -- she will look for location near her house Patient care time spent: 10 min. Of this, greater than 50% of this was spent for purposes of education and counseling regarding the diagnosis and treatment of pain. Patient is aware that any diagnostic testing is best discussed in person or by telemedicine visit to fully explain the significance and resulting treatment plan. Patient agrees with above. Cecil Schneider APRN.CNP October 28, 2023 documented in this encounter [facility] 10-27-2023 History of Present illness Narrative [facility] Med Refill Additional comments: Xanax Venlafaxine Last edited by Shima Dee MA on 10/27/2023 9:42 AM. Subjective Patient ID: Melina Díaz is a 48 y.o. female who presents for a two week follow up on her 2 week hospital stay. Melina is present today for a week follow up on her 2 week hospital stay. Has been going on for months. She complains of vomiting,diarrhea,headaches, and abdominal pain. She is getting a PIC line put in today to receive medication for her symptoms. She needs order for supplies for PIC line. Continues to have diarrhea. Currently is looking for new GI doctor. She feels weak and is sleeping all of the time. She is shaky and dizzy due to the lack of nutrition. Having diarrhea 10 times a day. She is also waking up I the middle of the night vomiting. Current Outpatient Medications on File Prior to Visit Medication Sig Dispense Refill ALPRAZolam (Xanax) 0.5 MG tablet Take 1 tablet (0.5 mg) by mouth Daily as needed for anxiety 30 tablet 0 amphetamine-dextroamphetamine (Adderall) 15 MG tablet take 1 tablet by mouth IN THE MORNING and IN THE AFTERNOON 60 tablet 0 B Complex Vitamins (vitamin B complex) tablet as directed Orally baclofen (Lioresal) 10 MG/20ML intrathecal injection Creon [id number] units capsule delayed-release particles capsule take 2 capsules by mouth with meals and 1 capsule with SNACKS dicyclomine (Bentyl) 20 MG tablet Take 20 mg by mouth in the morning and 20 mg in the evening. Dodex 1000 MCG/ML injection eletriptan (Relpax) 40 MG tablet TAKE 1 TABLET BY MOUTH ONCE DAILY AT THE SAME TIME EACH DAY 27 tablet 3 Estrace 0.1 MG/GM vaginal cream Fructooligosaccharides (FOS PO) peptamen 1.5 or equivalents: total calories: 1210/ day(22 hours), tf goal rate: 55/hr, water flushes: 150 ml every 4 hours, diet: regular diet, hold 1 hour before and after the synthroid levothyroxine (Synthroid) 50 MCG tablet 1 (one) time each day at the same time. metoprolol tartrate (Lopressor) 25 MG tablet take 1 tablet by mouth every 6 hours if needed for PALPITATIONS [] metroNIDAZOLE (Flagyl) 500 MG tablet Take 1 tablet (500 mg) by mouth in the morning and 1 tablet (500 mg) in the evening and 1 tablet (500 mg) before bedtime. Do all this for 14 days. 42 tablet 0 octreotide (SandoSTATIN) 100 MCG/ML injection Inject 100 mcg under the skin in the morning and 100 mcg in the evening. OLANZapine (ZyPREXA) 5 MG tablet Take 5 mg by mouth at bedtime RA Vitamin D-3 25 MCG (1000 UT) tablet take 1 tablet by mouth once daily . BREAK OPEN AND RELEASE UNDER TONGUE FOR BEST ABSORPTION Oral for 90 Days Rimegepant Sulfate (Nurtec) 75 MG tablet dispersible 1 tablet orally every other day semaglutide (Ozempic) 2 MG/1.5ML solution pen-injector Inject 0.5 mg under the skin 1 (one) time per week. 1 each 12 tiZANidine (Zanaflex) 4 MG tablet Take 1.5 tablets (6 mg) by mouth every 8 (eight) hours if needed for muscle spasms 135 tablet 2 traZODone (Desyrel) 100 MG tablet Take 1 tablet (100 mg) by mouth at bedtime 30 tablet 1 vancomycin (Vancocin) 125 MG capsule Take 1 capsule (125 mg) by mouth 4 (four) times a day for 10 days, THEN 1 capsule (125 mg) 2 (two) times a day for 7 days, THEN 1 capsule (125 mg) Daily for 7 days, THEN 1 capsule (125 mg) every other day for 28 days. 75 capsule 0 venlafaxine (Effexor) 75 MG tablet Take one tablet in am daily 30 tablet 1 [DISCONTINUED] DULoxetine (Cymbalta) [address] capsule Take 60 mg by mouth in the morning. [DISCONTINUED] traZODone (Desyrel) 50 MG tablet Take 1 tablet (50 mg) by mouth at bedtime 30 tablet 1 No current facility-administered medications on file prior to visit. Allergies Allergen Reactions Aspartame Headache and Nausea Only Gabapentin Unknown Ketorolac Unknown Morphine Hives Paroxetine Other Reaction(s): Intolerance Gi upset Scopolamine Unknown Blurred vision Tramadol Unknown Wound Dressing Adhesive Unknown, Itching, Rash and Swelling Social History Tobacco Use Smoking status: Never Smokeless tobacco: Never Vaping Use Vaping Use: Never used Substance Use Topics Alcohol use: Not Currently Comment: Caffine intake : couple of cups per week Drug use: Never Family History Problem Relation Name Age of Onset Alcohol abuse Mother Tone Heart disease Mother Tone Heart disease Father Tone No Known Problems Sister No Known Problems Brother Heart disease Paternal Grandfather Jian fuentes No Known Problems Son No Known Problems Daughter Mental illness Neg Hx Past Medical History: Diagnosis Date Abdominal pain 05/2021 ADD (attention deficit disorder) Anxiety Disease of thyroid gland (CMS/HCC) GI problem mult admissions 03/2022-04/2022 History of being hospitalized 10/08/2023 C. diff, N/V, Dehydration History of esophageal stricture recurrent vomitting, nausea Hx of gastric bypass Migraines (CMS/HCC) Peripheral edema 02/2021 Thyroid mass (CMS/HCC) Past Surgical History: Procedure Laterality Date BREAST LUMPECTOMY Right 2008 SECTION, LOW TRANSVERSE x3 CHOLECYSTECTOMY 2003 IR CVC PICC 08/15/2022 IR CVC PICC MASS EXCISION 2012 thyroid mass OTHER SURGICAL HISTORY Gastric sleeve PARTIAL HYSTERECTOMY 2009 IA UPPER ARM/ELBOW SURGERY UNLISTED Bilateral 09/2019 ARM REDUCTION TOTAL ABDOMINAL HYSTERECTOMY 2010 Visit Vitals Smoking Status Never Review of Systems Constitutional: Negative. HENT: Negative. Eyes: Negative. Respiratory: Negative. Cardiovascular: Negative. Gastrointestinal: Positive for diarrhea, nausea and vomiting. Genitourinary: Negative. Musculoskeletal: Negative. Neurological: Negative. Psychiatric/Behavioral: Negative. Objective Physical Exam Vitals reviewed. Constitutional: Appearance: Normal appearance. HENT: Head: Normocephalic. Mouth/Throat: Mouth: Mucous membranes are dry. Cardiovascular: Rate and Rhythm: Normal rate. Pulmonary: Effort: Pulmonary effort is normal. Abdominal: Palpations: Abdomen is soft. Skin: General: Skin is warm and dry. Neurological: General: No focal deficit present. Mental Status: She is alert and oriented to person, place, and time. Psychiatric: Mood and Affect: Mood normal. Behavior: Behavior normal. Assessment/Plan Diagnoses and all orders for this visit: Projectile vomiting with nausea - lactated Ringer's infusion; Infuse 100 mL/hr at 100 mL/hr into a venous catheter Daily as needed (Poor appetie and nausea/vomiting, chronic diarrhea) - promethazine (Phenergan) injection 25 mg - ondansetron (Zofran) injection 4 mg - Heparin Sod, Pork, Lock Flush (heparin flush) 10 units/mL injection; 3 mL (30 Units) by Intracatheter route 1 (one) time for 1 dose Take medication as ordered. Continue to attempt to eat. Do not use the Lactated Ringers unless you have to use them. Attempt to maintain hydration orally. Functional diarrhea - lactated Ringer's infusion; Infuse 100 mL/hr at 100 mL/hr into a venous catheter Daily as needed (Poor appetie and nausea/vomiting, chronic diarrhea) See above. Pt to go see a new GI physician. She reports that she has gastroparesis per Garcia Poor appetite - lactated Ringer's infusion; Infuse 100 mL/hr at 100 mL/hr into a venous catheter Daily as needed (Poor appetie and nausea/vomiting, chronic diarrhea) See above PIC line (peripherally inserted central catheter) flush - sodium chloride 0.9% (NS) 0.9 % flush; Infuse 5 mL into a venous catheter if needed for line correction health to maintain PICC line education and perform dressing changes. Moderate episode of recurrent major depressive disorder (HCC) ([facility]/HCC) - venlafaxine (Effexor) 75 MG tablet; Take one tablet in am daily Medication as directed. Counseling recommended. Verbalizes understanding of the need to be seen in the ER for suicidal/homicidal ideation, excessive stress, elevated blood pressure or palpitations. Pt offers understanding of treatment plan. I discussed the side effects of the medications described and to seek medical care if they arise. Discussed stress mgmt strategies, social support and importance of healthy diet, exercise and regular sleep habits. Advised on relaxation methods to decrease anxiety and depression. Anxiety - ALPRAZolam (Xanax) 0.5 MG tablet; Take 1 tablet (0.5 mg) by mouth Daily as needed for anxiety Medication as directed. Counseling recommended. Verbalizes understanding of the need to be seen in the ER for suicidal/homicidal ideation, excessive stress, elevated blood pressure or palpitations. Pt offers understanding of treatment plan. I discussed the side effects of the medications described and to seek medical care if they arise. Discussed stress mgmt strategies, social support and importance of healthy diet, exercise and regular sleep habits. Advised on relaxation methods to decrease anxiety and depression. No follow-ups on file. documented in this encounter [facility] 10-22-2023 Miscellaneous Notes I have reviewed the dosage, timing and amount of medication to be dispensed. I approve this prescription to be reviewed and signed by a Nutrition Support physician. Prescription Disposition: Escript Physician: Dr. Zafar Call from patient requesting refill. Please E-Scribe Last OV: 10/06/[address] Zafar Future OV: 10/28/[address] zafar Requested Prescriptions Pending Prescriptions Disp Refills cholecalciferol, Vitamin D3, (VITAMIN D3) 1,250 mcg (50,000 unit) cap capsule 24 capsule 0 Sig: Take 1 capsule by mouth two times a week. Zita Adkins RD documented in this encounter [facility] 10-19-2023 Miscellaneous Notes Returned call to patient. Patient reports she is still in hospital, plan to do colonoscopy and she was diagnosed with gastroparesis. Still testing positive for C.diff, Positive fecal lactopherin. Patient reports she is unsure when she will get out of the hospital, hopefully by next appt. CGRT Recommendations: - Oral Rehydration Solution (ORS): Increase ORS to 1.5 liters sipped throughout the day - Continue bariatric vitamin daily - START 50 mg elemental Zinc daily - Recheck labs in 3 months - Hold off on feeding tube discussion until RTC mid Oct. Also taking: - Continue Vit D 50,000 international unit(s) daily - Continue Vitamin B12 1000 mcg injection once monthly - Continue Calcium Citrate 950 mg [address]ID [address]ita [address] RD Called patient (attempt x 3) - left , await call back. Zita Adkins RD Patient left a returning call. Patient ph: [phone] Call to patient. Left , await call back. Zita Adkins RD Patient sent message she is in hospital being treated for C.diff , so that is why she didn't show to her appointment yesterday. Need to follow up on lab results below. . CGRT Recommendations: - Oral Rehydration Solution (ORS): Increase ORS to 1.5 liters sipped throughout the day - When speak to patient re: labs, discuss plan for EN (patient met with Dr. Andrade yesterday) - Assess compliance: bariatric vitamin daily - if taking, START additional zn supplement Also taking: - Continue Vit D 50,000 international unit(s) daily - Continue Vitamin B12 1000 mcg injection once monthly - Continue Calcium Citrate [address] Vit A WNL. Not currently on individual supplementation. Patient has VV on 10/15/23, labs to be addressed during clinic. C diff not yet obtained per EPIC review. Patient will need to submit a stool sample following visit on 10/15 CGRT Recommendations: - Oral Rehydration Solution (ORS): Increase ORS to 1.5 liters sipped throughout the day - When speak to patient re: labs, discuss plan for EN (patient met with Dr. Andrade yesterday) - Assess compliance: bariatric vitamin daily - if taking, START additional zn supplement Also taking: - Continue Vit D 50,000 international unit(s) daily - Continue Vitamin B12 1000 mcg injection once monthly - Continue Calcium Citrate [address] Component Latest Ref Rng & Units 10/06/2023 Vitamin A 0.30 - 1.20 mg/L 0.32 Pending: C-Diff Zinc level resulted lower from previous level which was 67. Await C.diff and Vit A level. CGRT Recommendations: - Oral Rehydration Solution (ORS): Increase ORS to 1.5 liters sipped throughout the day - When speak to patient re: labs, discuss plan for EN (patient met with Dr. Andrade yesterday) - Assess compliance: bariatric vitamin daily - if taking, START additional zn supplement Also taking: - Continue Vit D 50,000 international unit(s) daily - Continue Vitamin B12 1000 mcg injection once monthly - Continue Calcium Citrate [address] Patient: MELINA DÍAZ ([id number]) Female, Age: 48; Active Group: IRP; Lab Result Details: Lab Info Patient Name: MELINA DÍAZ Clinic ID: [id number] HPN Episode Start Date: IRP Encounter Date: 10/06/2023 Lab Collected Date: 10/06/2023 Recorded Date: 10/07/2023 Lab Source: Lab Phone: Lab Collected 10/06/2023 Zinc (ug/dL): 52 (60-120) In Process: A, C-diff Lab results received which were ordered following virtual visit yesterday with Dr. Zafar. Patient's BUN/sCr are relatively stable and indicate adequate hydration. Patient was instructed to increase ORS to 1.5 liters daily at yesterday's visit. Lytes are WNL including acid base. Slightly hyperglycemic. H&H WNL. IN PROCESS: VIT-A , ZINC, & C-DIFFICILE CGRT Recommendations: - Oral Rehydration Solution (ORS): Increase ORS to 1.5 liters sipped throughout the day - When speak to patient re: labs, discuss plan for EN (patient met with Dr. Andrade yesterday) Await labs: - Continue bariatric vitamin daily - Continue Vit D 50,000 international unit(s) daily - Continue Vitamin B12 1000 mcg injection once monthly - Continue Calcium Citrate [address] Component Latest Ref Rng & Units 10/06/2023 WBC 3.70 - 11.00 k/uL 5.73 RBC 3.90 - 5.20 m/uL 4.30 Hemoglobin 11.5 - 15.5 g/dL 12.5 Hematocrit 36.0 - 46.0 % 38.3 MCV 80.0 - 100.0 fL 89.1 MCH 26.0 - 34.0 pg 29.1 MCHC 30.5 - 36.0 g/dL 32.6 RDW-CV 11.5 - 15.0 % 13.8 Platelet Count 150 - 400 k/uL 273 MPV 9.0 - 12.7 fL 9.5 Neut% % 45.9 Abs Neut (ANC) 1.45 - 7.50 k/uL 2.63 Lymph% % 44.7 Abs Lymph 1.00 - 4.00 k/uL 2.56 Chilton% % 6.8 Abs [place]ilton <0.87 k/uL 0.39 Eosin% % 1.4 Abs Eosin <0.46 k/uL 0.08 Baso% % 1.0 Abs Baso <0.11 k/uL 0.06 Immature Gran % % 0.2 IMMATURE GRANS (ABS) <0.10 k/uL <0.03 NRBC /100 WBC 0.0 Absolute nRBC <0.01 k/uL <0.01 DTYPE Auto Protein, Total 6.3 - 8.0 g/dL 6.6 Albumin 3.9 - 4.9 g/dL 4.1 Calcium 8.5 - 10.2 mg/dL 9.3 Bilirubin, Total 0.2 - 1.3 mg/dL 0.4 Alkaline Phosphatase 34 - 123 U/L 108 AST 13 - 35 U/L 32 ALT 7 - 38 U/L 35 Glucose 74 - 99 mg/dL 101 (H) BUN 7 - 21 mg/dL 9 Creatinine 0.58 - 0.96 mg/dL 0.59 Sodium 136 - 144 mmol/L 139 Potassium 3.7 - 5.1 mmol/L 3.9 Chloride 97 - 105 mmol/L 104 CO2 22 - 30 mmol/L 26 Anion Gap 9 - 18 mmol/L 9 eGFR >=60 mL/min/1.73m 112 Magnesium 1.7 - 2.3 mg/dL 2.0 Phosphorus 2.7 - 4.8 mg/dL 4.0 IN PROCESS: VIT-A , ZINC, & C-DIFFICILE documented in this encounter [facility] 10-16-2023 Miscellaneous Notes Pt left VM: said she had cx'd her appt that was for 2/1 the day before due to being in hospital and being treated for C Diff and noted it was still showing. Asking if she could get appt rescheduled. Ninoska Aguilar, PIETRO documented in this encounter [facility] 10-14-2023 Note HNO ID: [id number] Author: ZITA ADKINS RD Service: ? Author Type: Registered Dietitian Type: Progress Notes Filed: 10/28/2023 14:04 Note Text: Abstract moved to clinic visit with Dr. Zafar on 10/28/23. Zita Adkins RD [facility] 10-14-2023 History of Present illness Narrative Abstract moved to clinic visit with Dr. Zafar on 10/28/23. Zita Adkins RD documented in this encounter [facility] 10-06-[address] [facility] 10-06-[address] [facility] 10-01-[address] [facility] 09-17-[address] [facility] 08-27-[address] [facility] 08-27-2023 History of Present illness Narrative Images from the original [place]. [place] [id number] [place] [address] [facility] [id number] GI/Bariatric Endoscopy Clinic Visit Gastroenterology, Hepatology, and Nutrition Department ?[facility] [place] ([facility]) ? 08/27/2023 ? The patient encounter is a virtual/telephone visit today, 08/27/2023, in lieu of an office visit due to the current COVID-19 pandemic crisis and need for social distancing. Reason for Visit: hx RYGB c/b diarrhea, dumping syndrome Patient is: Established patient Location of Provider: Hospital Location of Patient: Home Consent for virtual care, including informing the patient that insurance will be billed, and that in-person care is available in case of emergencies or as needed otherwise, was discussed at the time of scheduling. Dear Sean Ruiz DO, ? I had the pleasure of seeing Mleina Díaz in the [facility] GI/Bariatric Endoscopy Clinic for hx RYGB c/b diarrhea, dumping syndrome Interval: Stopped ozempic >1 month. Started tube feeds 1.5 weeks ago. She still having diarrhea after she eats, sometimes right after she eats a meal. Also has assoc nausea, some sweating and bloating. She is following the dumping syndrome lifestyle modifications. Prior History/ note from last VV 07/14/2023, Nhi Hinojosa MANAGER 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: Melina Díaz has a history of obesity since childhood, teenage years. Comorbidities are: overweight s/p RYGB, history of jarred ulcer, marginal ulcer, c diff colitis, nausea, vomiting, intercostal neuralgia, breast mass, neck mass, hypothyroid, COREEN, ADHD, pelvic abscess Melina Díaz underwent LSG 11 years ago then conversion to RYGB at [facility] in December 2021, additional surgical revision of GJA due to ulceration and vagotomy with Dr. Ozuna on 07/29/2022. Presleeve weight was 310 lbs and lowest weight she got down to was 174 lbs. Her prebypass weight was 267 pounds with a post bypass faustina weight of 190 pounds, over 1 year, todays weight. The patient then experiencing diarrhea multiple times a day after bypass surgery which started 4 months ago. Also complains of abdominal bloating, nausea, vomiting. She takes creon started 1.5 months ago which does not help. She is on ozempic had held as discussed with IBD, then she restarted as this did not help with symptom improvement. The patient has since undergone EGD for endoscopic revision, which demonstrated a pouch of 5 cm and outlet of 30mm. We discussed diet and lifestyle modifications for dumping syndrome. Patient states she separates eating from drinking, avoids simple sugars. We also discussed trying octreotide however patient interested in APC revision for dumping syndrome and weight management. We discussed procedure in details. She will need to see our team. She has been following with IBD clinic whom referred her to us. Work up for abdominal pain, nausea, vomiting negative. She did complete EUS without significant findings however EUS limited due to RYGB anatomy. 07/03/2023 MRI Panc/Jimbo IMPRESSION: Mild pancreatic atrophy but no cystic or solid mass, or other findings to explain diarrhea. Mild central bile duct prominence is likely postcholecystectomy change. Expected changes following Gelacio-en-Y gastric bypass. 04/21/2023 CT ABD/PEL IMPRESSION: 1. Mild colitis, likely infectious or inflammatory. 04/23/2023 Colonoscopy Findings: The perianal and digital rectal examinations were normal. A few small-mouthed diverticula were found in the sigmoid colon. The exam was otherwise without abnormality. Biopsies for histology were taken with a cold forceps from the right colon, left colon and transverse colon for evaluation of microscopic colitis. Estimated blood loss was minimal. Impression: - Diverticulosis in the sigmoid colon. - The examination was otherwise normal. - Biopsies were taken with a cold forceps from the right colon, left colon and transverse colon for evaluation of microscopic colitis. FINAL DIAGNOSIS A. Colon, biopsy: - Colonic mucosa with no significant pathologic changes. 24 hrs Diet recall: Breakfast: Protein Shake Snack: None Lunch: chicken broth Snack: Cheez it crackers Dinner: Protein Shake Snack: Cheez it crackers Wakes up to eat: No Current Exercise Activity: Going to gym 2-3x a week Weight History: Pre-LSG weightL: 310 lbs (BMI 47.1) Post LSG weight: 174 lbs (BMI 26.5) Pre-RYGB weight: 267 lbs (BMI 40.6). Post-RYGB faustina: 190 lbs (BMI 28.9). Ht 172.7 cm (5' 8 ) Wt 86.2 kg (190 lb) BMI 28.89 kg/m Goal weight BMI < 27: 162.3 Goal weight BMI < 30: 180.3 Last 5 Encounter Wt Readings: Date: Wt: 07/13/2023 86.5 kg (190 lb 9.6 oz) 06/26/2023 87.5 kg (193 lb) 06/24/2023 86.2 kg (190 lb) 04/21/2023 88.8 kg (195 lb 12.3 oz) 04/07/2023 92 kg (202 lb 13.2 oz) Risk factors: Tobacco use: No EtOH intake: No NSAIDs: No H. Pylori: No She has had SIBO in the past Relevant Medications: Creon 3 tablets TID and with snacks Phenergan Tizanidine Adderall Ozempic Vitamins/Minerals Supplements: Vit B12, MVI, calcium citrate and vit D Relevant Bariatric Procedures/Surgeries Bariatric Surgeon: [facility] Bariatric Surgery: 12/2021 Gelacio-en-Y Gastric Bypass (RYGB) at [facility] and LSG also done at OSH additional surgical revision of GJA due to ulceration and vagotomy done with Dr. Ozuna in 07/2022 Past Medical History: PAST MEDICAL HISTORY Diagnosis Date Breast mass 11/04/2007 Right, biopsy benign Encounter for cosmetic surgery Endometriosis Excess skin of arm Fracture , ankle Localized adiposity Morbid obesity (HCC) Ovarian cyst Thyroid disorder Past Surgical History: PAST SURGICAL HISTORY Procedure Laterality Date ASSIST ONLY x3 EGD multiple GASTRIC BYPASS HX 12/2021 conversion from gastruc sleeve LAPAROSCOPY SURG CHOLECYSTECTOMY 2005 Cholecystectomy, lap PAST SURGICAL HISTORY OF 10/28/2011 gastric sleeve PAST SURGICAL HISTORY OF 2011 excision of goiter PAST SURGICAL HISTORY OF thyroid mass removed REMOVAL STOMACH,GELACIO-EN-Y 07/29/2022 TOTAL ABDOMINAL HYSTERECT W/WO RMVL TUBE OVARY 05/01/2010-05/2011 Hysterectomy, partial uterus then completion Medications: Current Outpatient Medications Medication Sig Dispense Refill DULoxetine (CYMBALTA) 30 mg capsule Take 1 capsule by mouth once daily. 30 capsule 2 nut.tx.impair fplhy-zvjoij-FCY (PEPTAMEN 1.5 DELMY WITH PREBIO1) 0.068 gram- 1.5 kcal/mL liqd peptamen 1.5 or equivalents: total calories: 1210/ day(22 hours), tf goal rate: 55/hr, water flushes: 150 ml every 4 hours, diet: regular diet, hold 1 hour before and after the synthroid 1000 mL 3 ondansetron orally disintegrating (ZOFRAN ODT) 8 mg disintegrating tablet Take 1 tablet by mouth every 8 hours as needed for nausea/vomiting. 21 tablet 1 promethazine (PHENERGAN) 25 mg tablet Take 1 tablet by mouth every 8 hours as needed (for nausea) for up to 14 days. 21 tablet 1 docusate sodium (COLACE) 100 mg capsule Take 1 capsule by mouth two times a day. 30 capsule 1 Senna 8.6 mg tab Take 2 tablets by mouth two times a day. 60 tablet 1 polyethylene glycol 3350 (MIRALAX) 17 gram/dose powder Take 17 g by mouth two times a day. Dissolve dose in 4 - 8 ounces of liquid and take as directed. 510 g 1 lactulose 20 gram/30 mL solution Take 60 mL by mouth once daily as needed. for constipation despite use of colace/senna/miralax 300 mL 2 eletriptan (RELPAX) 40 mg tablet Take 40 mg by mouth as needed. May repeat dose after 2 hours if needed. Maximum daily dose is 80 mg per day. venlafaxine XR (EFFEXOR XR) 37.5 mg tr24 Take 37.5 mg by mouth once daily. oxyCODONE (ROXICODONE) 5 mg/5 mL oral solution Take 7.5 mg by mouth as needed for pain. Every 4-6 hours diphenhydrAMINE (BENADRYL) 25 mg capsule Take 50 mg by mouth every 6 hours as needed for itching/rash. OLANZapine (ZYPREXA) 5 mg tablet Take 1 tablet by mouth daily at bedtime. 30 tablet 0 baclofen 5 mg tablet Take 1 tablet by mouth three times a day. 270 tablet 5 dicyclomine (BENTYL) 20 mg tablet Take 1 tablet by mouth two times a day. 200 tablet 5 mdihcm-ndlmjzlx-pczijse (CREON) 24,000-76,000 -120,000 unit delayed release capsule Take 1 capsule by mouth three times a day with meals. 270 capsule 1 tiZANidine (ZANAFLEX) 4 mg tablet Take 1 tablet by mouth every 8 hours as needed. semaglutide (OZEMPIC) 0.25 mg or 0.5 mg(2 mg/1.5 mL) pen Inject 0.5 mg subcutaneously one time a week. cholecalciferol (VITAMIN D3) 1,000 unit tab tablet take 1 tablet by mouth once daily . BREAK OPEN AND RELEASE UNDER TONGUE FOR BEST ABSORPTION 90 tablet 0 levothyroxine (SYNTHROID) 50 mcg tablet Take 50 mcg by mouth. cyanocobalamin, vitamin B-12, (B-12 COMPLIANCE) 1,000 mcg/mL kit 1 mL by INJECTION(UNSPECIFIED PARENTERAL ROUTES) route one time a week. ALPRAZolam (XANAX) 0.5 mg tablet Take 0.5 mg by mouth at bedtime as needed. No current facility-administered medications for this visit. Allergies: ALLERGIES Allergen Reactions Gabapentin Angioedema Patient reports throat swelling with gabapentin. Tramadol Hives Adhesive Tape (Serina* Rash, Swelling, Itching Nsaids (Non-Steroid* Contraindication-Medical Surgical S/p gelacio en y gastric bypass Paxil [Paroxetine] Intolerance Gi upset Scopolamine Other: See Comments Blurred vision Toradol [Ketorolac * Hives, Swelling Family History: No known colon cancer, polyps, IBD, celiac disease, pancreatic disease, or liver disease. FAMILY HISTORY Problem Relation Age of Onset COPD Mother Hypertension Mother other (hypoglycemia) Mother Emphysema Father Coronary Artery Disease Father Ischemic Heart Disease Father 58 s/p stents Hypertension Father Asthma Sister 1/2 sister with female cysts other (unkown) Sister BiPolar-Bulemia None Brother 1/2--unkown Thyroid Other 1st cousin - ? Grave's ? Social History: Social History Tobacco Use Smoking status: Never Smokeless tobacco: Never Vaping Use Vaping Use: Never used Substance Use Topics Alcohol use: Not Currently Drug use: No Comment: denies tx for drug/alcohol abuse in the past. Tobacco: Tobacco Use: Never Alcohol: Alcohol Use: Not Currently Illicits: Drug Use: No (denies tx for drug/alcohol abuse in the past.) Review of Systems: Review of Systems Constitutional: no fevers, chills, night sweats, or weight loss Cardiovascular: no chest pain Pulmonary: no shortness of breath Eyes: no visual changes or eye irritation Musculoskeletal: no myalgias or arthralgias Skin: no new or changing skin lesions, rashes or pruritis 12 point ROS otherwise negative. Physical Examination: Vital Signs: Physical Exam virtual/videocall encounter: Patient reported height General - Normal, healthy, cooperative, in no acute distress Able to interact verbally by video conference Psych - ORIENTATION: normal to time place, person and situation Mood/Affect: AFFECT AND MOOD: Normal Head/Neuro - Normal size and shape Facial appearance normal Pulmonary - respiratory effort normal Cardiovascular - patient describes extremities normal, warm, no cyanosis,no clubbing and no edema Abdominal - Flat, Visible protrusions or hernias: No Incisions/scars: None, Areas of pain/tenderness: denies Skin - abnormal lesions not visualized Motor - patient seen sitting with Normal appearing strength and coordination ? Laboratory Data: Component Latest Ref Rng & Units 07/31/2023 Transglutaminase IgA Abs <4 U/mL <2 Transglutaminase IgA Abs Interpretation Negative Negative Interpretation (Celiac Screen) No serological evidence of celiac disease, however, if celiac disease is clinically suspected and patient is not on gluten-free diet, histological diagnosis may be considered. HLA testing may help with risk assessment. Gliadin Ab, IgA <20 Units 5 Gliad Deamidated IgA Qual Negative, Test not Indicated Negative Component Latest Ref Rng & Units 09/12/2022 09/30/2022 03/27/2023 04/08/2023 06/12/2023 C. difficile PCR Negative for C. difficile toxin by PCR Positive for C. difficile toxin by PCR (A) Negative for C. difficile toxin by PCR Negative for C. difficile toxin by PCR Negative for C. difficile toxin by PCR Negative for C. difficile toxin by PCR Component Latest Ref Rng & Units 06/12/2023 Shigella spp./Enteroinvasive E.coli DNA Not Detected Not detected Campylobacter jejuni/coli DNA Not Detected Not detected Shiga toxin-producing gene(s) Not Detected Not detected Salmonella spp. DNA Not Detected Not detected Component Latest Ref Rng & Units 04/21/2023 Panc Elastase, Fecal >=100 ug/g 61 (L) Component Latest Ref Rng & Units 04/08/2023 Cryptosporidium Antigen by EIA Negative Negative for Cryptosporidium by EIA. Giardia Antigen by EIA Negative Negative for Giardia lamblia by EIA. Component Latest Ref Rng & Units 04/08/2023 Total Weight, Feces g 10 Collection Period (FECFAT) h Random Fat Quant, Feces DNR Fat %, Feces <20 % fat 48 (H) Lab Results Component Value Date [id number] 06/26/2023 TSH Date Value Ref Range Status 04/09/2023 2.830 0.270 - 4.200 mIU/L Final Comment: If the patient is , TSH reference range varies by gestational period: First Trimester (weeks 9-12): 0.180-2.990 mIU/L Second Trimester: 0.110-3.980 mIU/L Third Trimester: 0.480-4.710 mIU/L Santi Dumont, et al. A Practical Approach for the Verifications and Determination of Site- and Trimester-Specific Reference Intervals for Thyroid Function tests in . Thyroid, 2019:29:3:412-420. Irvin E, et al. 2017 Guidelines of the [place] [employer] for the Diagnosis and Management of Thyroid Disease during and the . Thyroid, 2017:27:3:315-389. WBC (k/uL) Date Value 08/17/2023 5.45 RBC (m/uL) Date Value 08/17/2023 3.78 (L) Hemoglobin (g/dL) Date Value 08/17/2023 11.2 (L) Hematocrit (%) Date Value 08/17/2023 34.4 (L) MCV (fL) Date Value 08/17/2023 91.0 MCH (pg) Date Value 08/17/2023 29.6 MCHC (g/dL) Date Value 08/17/2023 32.6 RDW-CV (%) Date Value 08/17/2023 13.1 Platelet Count (k/uL) Date Value 08/17/2023 220 MPV (fL) Date Value 08/17/2023 9.6 Potassium (mmol/L) Date Value 08/17/2023 4.6 08/18/2012 4.0 Sodium (mmol/L) Date Value 08/17/2023 142 08/18/2012 141 Magnesium (mg/dL) Date Value 08/17/2023 2.4 Creatinine (mg/dL) Date Value 08/17/2023 0.79 08/18/2012 0.56 BUN (mg/dL) Date Value 08/17/2023 12 08/18/2012 10 Glucose (mg/dL) Date Value 08/17/2023 104 08/18/2012 144 PT INR (no units) Date Value 02/25/2007 0.9 The INR value should be used only for patients who have been on stable oral anticoagulation for several weeks. The recommended range for standard oral anticoagulant therapy is 2.0 - 3.0. The range for high dose therapy for high risk systemic embolization is 2.5 - 3.5. INR (no units) Date Value 08/12/2022 1.0 TSH Date Value 04/09/2023 2.830 mIU/L 08/20/2016 0.709 uU/mL NT Pro BNP (pg/mL) Date Value 06/16/2022 225 Glucose (mg/dL) Date Value 08/17/2023 104 (H) BUN (mg/dL) Date Value 08/17/2023 12 Creatinine (mg/dL) Date Value 08/17/2023 0.79 Sodium (mmol/L) Date Value 08/17/2023 142 Potassium (mmol/L) Date Value 08/17/2023 4.6 Chloride (mmol/L) Date Value 08/17/2023 107 (H) CO2 (mmol/L) Date Value 08/17/2023 30 Protein, Total (g/dL) Date Value 08/17/2023 6.0 (L) Albumin (g/dL) Date Value 08/17/2023 3.6 (L) Calcium, Total (mg/dL) Date Value 08/17/2023 8.6 Alkaline Phosphatase (U/L) Date Value 08/17/2023 98 Bilirubin, Total (mg/dL) Date Value 08/17/2023 <0.2 (L) AST (U/L) Date Value 08/17/2023 42 (H) ALT (U/L) Date Value 08/17/2023 46 (H) Glucose (mg/dL) Date Value 08/17/2023 104 08/18/2012 144 Creatinine (mg/dL) Date Value 08/17/2023 0.79 08/18/2012 0.56 Potassium (mmol/L) Date Value 08/17/2023 4.6 08/18/2012 4.0 AST (U/L) Date Value 08/17/2023 42 08/18/2012 25 ALT (U/L) Date Value 08/17/2023 46 08/18/2012 30 Hemoglobin A1C (%) Date Value 09/06/2013 5.4 Imaging: MRI pancreas 07/03/2023: RESULT: Liver: Normal morphology. No hepatic steatosis. No mass. Biliary: Mild prominence of the central hepatic ductal system and common bile duct upper limits of normal at 6-7 mm; this is of uncertain significance with elevated alkaline phosphatase and otherwise normal LFTs, but probably postcholecystectomy change. Spleen: 1.6 cm benign-appearing cyst, stable.. No splenomegaly. Pancreas: Mildly atrophic. No cystic or solid mass, or duct dilation. Adrenals: No mass. Kidneys: Subcentimeter simple LEFT renal cyst. No solid or complicated cystic mass. No hydronephrosis. GI tract: Changes of Gelacio-en-Y gastric bypass. No dilation or wall thickening. Lymph nodes: No abdominal lymphadenopathy. Mesentery / Peritoneum: No ascites or mass. Vasculature: - Abdominal aorta and iliac arteries: No aneurysm. - Celiac and SMA: Patent. - Portal venous system: Patent: - Hepatic veins: Patent. Bones/Soft Tissues: No acute findings IMPRESSION: Mild pancreatic atrophy but no cystic or solid mass, or other findings to explain diarrhea. Mild central bile duct prominence is likely postcholecystectomy change. Expected changes following Gelacio-en-Y gastric bypass. Endoscopy: EGD 08/13/2023: Findings: No gross lesions were noted in the esophagus. Evidence of previous surgery was found in the stomach. This was characterized by healthy appearing mucosa. A guide wire was inserted into the jejunum and the endoscope was removed. A 10 Fr nasojejunal tube was advanced over the guide wire into the jejunum. There was evidence of a widely patent previous surgical anastomosis in the afferent jejunal loop and in the efferent jejunal loop. Impression: - No gross lesions in the esophagus. - Evidence of previous gastric surgery was found, characterized by healthy appearing mucosa. - Widely patent previous surgical anastomosis was found in the jejunum. - Feeding tube placement was successfully performed. - No specimens collected. EGD 08/07/2023: Findings: The hypopharynx was normal. No gross lesions were noted in the entire esophagus. The Z-line was regular. Evidence of a gastric bypass was found. A gastric pouch with a 5.5 cm length from the GE junction to the gastrojejunal anastomosis was found. The staple line appeared intact. The gastrojejunal anastomosis was characterized by healthy appearing mucosa. This was traversed. The aaotr-ni-bxhfmji limb was characterized by healthy appearing mucosa. The examined jejunum was normal. Impression: - Normal hypopharynx. - No gross lesions in the entire esophagus. - Z-line regular. - Gastric bypass with a pouch 5.5 cm in length and intact staple line. Gastrojejunal anastomosis characterized by healthy appearing mucosa. - Normal examined jejunum. - No specimens collected. EUS 06/26/2023: Findings: The examined esophagus was normal. The Z line was regular at 38 cm from incisors. The GE junction and hiatus were at 38 cm from incisors. Evidence of a Gelacio-en-Y gastric bypass (RYGB) was found. The gastrojejunal anastomosis (GJA) was characterized by normal appearing mucosa. No ulcers, erosion, sutures or jj. The GJA outlet was dilated 30 mm diameter and was traversed. The gastric pouch extended from 38 cm to 42 cm from the incisors. No gastro-gastric fistula was found. The jejunum was normal at 60 cm (both Gelacio/alimentary and blind limbs). No food or debris in the blind limb. LIMITED EUS EXAM DUE TO GASTRIC BYPASS ANATOMY (ENDOSONOGRAPHIC FINDING): : There was no sign of significant endosonographic abnormality in the pancreatic body and pancreatic tail. The pancreatic duct measured up to 2 mm in the body and <1mm in the tail in diameter. Only the body and tail of the pancreas was well visualized, no masses, no cysts, no calcifications, the pancreatic duct was well visualized from body to tail, the pancreatic duct was thin in caliber, the pancreatic duct was regular in contour. The head of the pancreas and ampulla could not be visualized due to gelacio-en-y gastric bypass anatomy. The region of the celiac plexus and celiac ganglia was visualized and showed no sign of significant endosonographic abnormality. The vascular anatomy of the region was normal. Impression: - There was no sign of significant pathology in the pancreatic body and pancreatic tail. - The head of the pancreas and ampulla could not be visualized due to gelacio-en-y gastric bypass anatomy. 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 No ulcers, fistulas or stenosis. - Normal esophagus. No hiatal hernia. No esophagitis. - Normal jejunum. - No specimens collected. Colonoscopy 04/23/2023: Findings: The perianal and digital rectal examinations were normal. A few small-mouthed diverticula were found in the sigmoid colon. The exam was otherwise without abnormality. Biopsies for histology were taken with a cold forceps from the right colon, left colon and transverse colon for evaluation of microscopic colitis. Estimated blood loss was minimal. Impression: - Diverticulosis in the sigmoid colon. - The examination was otherwise normal. - Biopsies were taken with a cold forceps from the right colon, left colon and transverse colon for evaluation of microscopic colitis. FINAL DIAGNOSIS A. Colon, biopsy: - Colonic mucosa with no significant pathologic changes. Assessment and Recommendations: ??47 year old female with history as per HPI, overweight s/p RYGB, history of jarred ulcer, marginal ulcer, c diff colitis, nausea, vomiting, intercostal neuralgia, breast mass, neck mass, hypothyroid, COREEN, ADHD, pelvic abscess, presenting to GI/Bariatric Endoscopy clinic for evaluation of complications of bariatric surgery s/p RYGB (12/2021) and surgical revision of GJA due to ulceration and vagotomy with Dr. Ozuna 07/29/2022 c/b epigastric pain referred by IBD clinic for dumping syndrome. Stopped ozempic >1 month. She still having diarrhea after she eats, sometimes right after she eats a meal. Also has assoc nausea, some sweating and bloating. She is following the dumping syndrome lifestyle modifications. Dumping syndrome recs: Patients should avoid foods that are high in simple sugar content and replace them with a diet consisting of high fiber, complex carbohydrate, and protein rich foods. Behavioral modification, such as small, frequent meals, and solids from liquid intake by 30 minutes, are also advocated. Usually, early dumping is self-limiting and resolves within 7 to 12 weeks Denied hypoglycemia. Will try octreotide and continue lifestyle modifications. Recommendations: - Start octreotide 100 mcg BID. All side effects discussed. Let us know if any issues or SE. - Eat smaller meals more frequently. - Aim for six small meals instead of three. - Eat slowly and chew thoroughly. - Avoid simple sugars, carbohydrates and milk products. This will prevent rapid blood sugar shifts. Complex carbs, such as whole grains, are better (see below). - Eat more protein and healthy fats to replace carbohydrates in your diet. Fats slow down digestion and provide a steadier form of energy. - Eat more dietary fiber to add bulk to your meal and slow down its transit time. Fiber slows down sugar absorption in your digestive system. - Lie down on your back for 30 minutes after eating. This may slow down gastric emptying and help maintain blood pressure during digestion. - Don t drink fluids within 30 minutes before or after eating. Fluids encourage motility. - Continue diet and lifestyle modifications - Schedule appt with our GI bariatric endoscopy dietitian, Sofie Perales RD - Schedule appt with our GI bariatric endoscopy psych, Dr. Barron - Increase physical activity aim for 200 mins of cardio and strength training exercises weekly - RTC in 6-8 weeks for follow up of medically supervised weight management program - please follow up with CGRT/human nutrition program for tube feed management. VIRTUAL VISIT I spent a total of 45 minutes during this real-time, interactive virtual clinical encounter, which was conducted virtually using HIPAA compliant videoconferencing technology. Greater than 50% of the time spent was devoted to counseling and coordinating care including review of records, pertinent lab data and studies, as well as discussing diagnostic evaluation and work up, planned therapeutic interventions and future disposition of care. This includes any additional research needed to obtain further information in formulating the plan of care of this patient. This includes counseling the patient about her disease and diagnosis, specifically: dumping syndrome, complications bariatric surgery We reviewed coronavirus precautions including avoiding public places, maintaining 6 feet of distance from other persons when in public, no sick contacts, and fastidious handwashing. Thank you for allowing me to participate in the care of your patient. If you have any questions or concerns, please feel free to contact me. Lawrence Andrade MD Msc 08/27/2023 9:51 AM documented in this encounter [facility] 08-27-[address] [facility] 08-27-[address] [facility] 08-27-2023 History of Present illness Narrative Nutrition Therapy Initial Assessment [facility] Nutrition Therapy: Virtual Consult - Initial Assessment I have communicated my name and active licensure. The patient s identity and physical location were verified at the time of this visit. 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 Residence at time of video visit: [place] Nutrition Diagnosis: Altered Gastrointestinal Tract Function, related to, S/P bariatric surgery, as evidenced by diarrhea . RECOMMENDED MALNUTRITION DIAGNOSIS: MODERATE PROTEIN-CALORIE MALNUTRITION NUTRITION CARE PLAN Nutrition Intervention 08/26/2023: - Consume a diet with more soluble fiber than insoluble fiber, or consume fibers that have been blenderizied - Soluble fibers include: peeled fruits, cooked vegetables without tough skins or seeds, potatoes/sweet potatoes/winter squash without the skin, oats, barley - Insoluble fibers include: Beans and lentils, Fruits and vegetables with skins or seeds, raw vegetables, Cabbage, corn kernals, leafy greens such as kale or denise greens, dried fruit, whole grains - Try Metamucil daily. You can take it up to 3 times per day - Bariatric Vitamin/Mineral Regimen Daily chewable Multivitamin with minerals 75-100 mcg thiamine daily 500 mcg vitamin B12 daily Calcium Citrate with vitamin D twice per day 3000 IU Vitamin D daily - If you would like a simpler vitamin formula regimen, check out the vitamins from [employer] [email or web address] [place] Recommendations: Recommended Enteral Access (and tip placement): Nasoenteric ([place], Nasogastric) Tube Tip Location: Jejunum Recommended Tube Feeding Formula:?Peptamen 1.5 Recommended Goal Rate: ?Continuous/cycled pump infusion of 65 mL/hr x 18 hours (1170 mL total/day) via Kangaroo Dung pump - you can try to reduce the rate down to 55 ml/hr for 18 hours and slowly titrate the tube feeding rate by 5 ml every 1-2 days to 65 ml/hr for 18 hours Recommended Goal Rate Provides: 1755 kcal, 80g protein, 893 mL free water per day Recommended Water Flush (mL x freq): 180 mL X 6 per day - use 150 ml [employer] (ORS) and 30 ml water Recommended Water Flush Provides: Additional 1080 mL free water per day Is patient at-risk for refeeding syndrome? No Permanency of enteral nutrition provision: Permanence means that the condition is of indefinite duration and/or >90 days. Permanence does not exclude the possibility of improvement. Choose ALL that apply:?Enteral nutrition needs are anticipated for greater than 90 days (unless significant clinical improvements occur). Medical necessity for enteral nutrition: A disease of the small bowel which impairs digestion or absorption of an oral diet Requires tube feedings to maintain weight & strength. Adequate nutrition is not possible through dietary adjustments or oral supplements Does patient require enteral nutrition infusion pump? Does patient require enteral nutrition infusion pump?: YES: Jejunostomy tube used for feeding Does patient require specialty formula? YES CHN EN SPECIALTY FORMULA: Supporting lab or clinical data rapid bowel transit demonstrates the need for specialty formula Percentage total calorie needs provided via enteral nutrition: Enteral nutrition will provide greater than 75% estimated nutrition needs. Home Health Care: None Home Infusion Pharmacy: [facility] Managing Physician/Staff: Hamlet Zafar MD ? Nutrition Monitoring & Evaluation: TF tolerance, weight, vitamin status Need for Follow up: 1 month Patient presents I have confirmed and edited as necessary the HPI obtained by Sommer Grewal MD on 08/07/2023 and all reflect current status. This is a 47 year old female with a h/o sleeve gastrectomy with conversion to gastric bypass, who recently underwent revision of gastrojejunostomy. She continues with a physiology of diarrhea/malabsorption since 04/2023. She has been referred to the CG[facility] from Dr Maged Goddard ([facility]) for management of diarrhea/malabsorption. Patient was seen for initial visit on 07/13/[address] Zafar. Patient reported abdominal pain, blurry vision, sweating, 10-15 BM's per day that were watery consistency. Abdominal x-ray was ordered to r/o overflow diarrhea with plan if stool was present then would need clean out. Rectal manometry referral was made. Pt was educated on low simple sugar diet and ORS during visit. Creon dose was increased. Since last visit, patient had labs drawn and were mostly unremarkable. X-ray abdomen was completed locally, and showed dried stool throughout the colon; pt was advised to complete bowel clean out. Patient has rectal manometry completed, which revealed abnormal pelvic floor coordination. Today, patient reports she completed the bowel clean out last week, but does not feel any better. She is currently taking Miralax 2 caps per day and having 10 watery BM's per day (unchanged from previous visit). She reports difficulty tolerating po intake over the past week due to N/V, having episodes of emesis 4-5 times per day when eating food. Emesis usually occurs ~1 hr after eating. Oral food intake is also associated with 8/10 abdominal pain. Patient is inquiring if she should be started on TPN; decision was made to trial EN prior to pursuing PN. Plan for nasojejunal tube feeding placement via EGD , Patient being admitted after feeding tube placement for TF initiation. Patient's symptoms are: GI: abdominal pain, bloating, diarrhea, and nausea ED Screening: Do you avoid eating certain foods? For what purpose? - high lactose foods If eating more food or weight gain resolved most of your GI symptoms would you be willing to do so? - yes Do you have a history of or an active eating disorder? - no Today, patient reports the following: - Energy level?fluctuates with diarrhea - Abdominal pain? Epigastric pain constant, immediately worsen w/ PO intake, lasts 1 hour - Abdominal distention? yes - Bloated?yes - Flatulence?yes very foul smelling worse w/ TF - Nausea or vomiting? Constant, worse with odors - Burping?yes - Heartburn?none - Sign of dehydration: Muscle cramp, dry mouth, headaches, dark urine?yes Output: The patient has 8 BMs per day. The output is bristol type 7. Stool consistency: Watery Constipation: - Straining or pushing hard to defecate?no - Cramping around moving bowel? Does it change after passing stool? no - An incomplete bowel movement ?no Diarrhea: - Urgency to go to the bathroom? Any BM that wakes you up at night?yes - Sudden onset/reactions to food previously tolerated? no - Significantly worse on Keto/high fat diet? Does not know - Have normal stool followed by bouts diarrhea? no - Diarrhea at the same time each day? no - Worse seasonally? Did not ask - Stool output relation to flood/fluid Immediately Menstruation Hx: h/o endometriosis Diet History: no solid food intakes since Thursday Beverages - herbal tea, chicken broth, powerade zero (64 oz per day total) Vitamins/Supplements - B12, MVI Enteral History: Current Enteral Access (and tip placement): Nasoenteric (Corpak, Nasogastric) Tube Tip Location: Jejunum Tube connection type: ENFit Attached clamp: No Extension: Y-Extension Tube placement details if available (ie surgeon, date place/replaced, etc): 08/13/2023 Current Tube Feeding Formula:?Peptamen 1.5 Current Rate:?Continuous/cycled pump infusion of 65mL/hr x 18 hours (1170 mL total/day) via [employer] D[employer] pump Current Rate Provides: 1815 kcal, 82g pro,?924 mL free water per day??? Current Water Flush (mL x freq):? 150 mL X 6 per day Current Water Flush Provides: Additional 900 mL free water per day? Current Enteral Modular/Additive: Current Tolerance:Fair Other formulas tried and not tolerated:?None Does the patient require and feed and flush bag? 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) Additional Activity: Sedentary (Little or no exercise: <1x/week) Anthropometrics: Height: Last 1 Encounter Ht Readings: Date: Ht: 08/07/2023 172.7 cm (5' 8 ) Weight: Last 10 Encounter Wt Readings: Date: Wt: 08/07/2023 89 kg (196 lb 3.4 oz) 08/05/2023 83.9 kg (185 lb) 07/27/2023 84.9 kg (187 lb 3.2 oz) 07/17/2023 86.2 kg (190 lb) 07/14/2023 86.2 kg (190 lb) 07/13/2023 86.5 kg (190 lb 9.6 oz) 06/26/2023 87.5 kg (193 lb) 06/24/2023 86.2 kg (190 lb) 04/21/2023 88.8 kg (195 lb 12.3 oz) 04/07/2023 92 kg (202 lb 13.2 oz) Home scale today: 182# (82.7 kg) 29.83 kg/m2 % weight change: - 3.8 kg (4.4%) x 1 month - not clinically significant for social/environmental behavioral malnutrition etiology UBW/Goal Weight: 190-195# Resting Metabolic Rate: 1581 Dosing weight: 89 kg Current Weight Estimated Nutrition Needs: Estimated kilocalorie needs:?0 -2224?kilocalories determined by 20-25 kcal/kg Estimated protein needs:?89 -111 ?grams determined by 20% of estimated energy needs Estimated fluid needs:? 1779 -2224?milliliters based on 1 mL per kcal Labs: (08/17/2023) Mg 2.4, Phos 3.7, Alb 3.6, K+ 4.6, Na+ 142 EGD 08/13/2023 No gross lesions in the esophagus. - Evidence of previous gastric surgery was found, characterized by healthy appearing mucosa. - Widely patent previous surgical anastomosis was found in the jejunum. - Feeding tube placement was successfully performed. - No specimens collected KUB 08/13/2023 Lines, tubes, and devices: Corpak feeding tube tip is at the LEFT midabdomen compatible with proximal small bowel through the gastrojejunostomy. There are cholecystectomy clips and surgical clips in the LEFT midabdomen. Bowel gas pattern: There are no dilated loops of bowel. Meds: Zofran, Promethazine, Colace, Senna, Miralalx, Lactulose, Effexor, Oxycodone, Diphenhydramine, Duloxetine, Olanzipine, Baclofen, Dicyclomine, Creon, Semaglutide (off)) , Vit D, synthroid, Alprazolam, B12 inj Malnutrition Screening Significant unintentional weight loss? Yes Eating less than 75% of usual intake for more than 2 weeks? Yes NUTRITION FOCUSED PHYSICAL EXAM: Subcutaneous Fat Loss Orbital Mild Triceps None Mid-axillary at the iliac crest None Muscle Loss Locations: Temporalis Mild Pectoralis Mild Deltoids Mild Interosseous Mild Latissimus dorsi, trapezius Unable to determine at this time Quadriceps None Gastrocnemius None Potential micronutrient deficiency revealed in: Hair - dull and easily pluckable Lips - dry Edema: No Ascites: No Assessment of Functional Status: Unable to assess Potential Signs of Inflammation: no identifiable sources In the context of Social/Environmental Circumstance based on: Insufficient Energy Intake: <75% for greater than or equal to 3 months Subcutaneous Fat Loss: Mild Loss Muscle Loss: Mild Loss Education Materials Provided: Oral Rehydration Solution (Recipes) and Improving Health with Fiber READINESS TO LEARN Cognitive ability: Alert and oriented Motivation to learn: Interested Family support: Unable to assess - Family not present Instruction provided to: Patient Patient learns best by: Individual Instruction Written Instruction - Hand-outs Factors affecting learning: None Physical limitations affecting learning: None Referred/Supervised by: Hamlet Zafar MD MNT Billing Type: Initial Assess/15 min 4 units SIGNATURE: Carmine Banks, , RD, LD PATIENT NAME: Melina Díaz DATE: 08/26/2023 TIME: 3:53 PM documented in this encounter [facility] 08-24-2023 Miscellaneous Notes Put in mail 2 securement devices and called pt to update. Ninoska Aguilar RN Pt called and asked if she could get get few extra naso gastric securement sets, cannot get from Infusion pharmacy or and let her know would check. OFFICE ANALYST can supply a few and then will mail to pt. Pt said due to deviated nasal septum, could not get bridle to secure [place] tube. Ninoska Aguilar, RN documented in this encounter [facility] 08-19-2023 Miscellaneous Notes Pt called and asked for some assistance for her disability paperwork completed, she said company asking for documentation for it said Dr. Zafar would see her on 08/07, pt was still in the hospital and could not see any notes from her. In review of her hospital chart, Dr. Zafar saw pt while in the hospital on 08/07/23 and 08/09/23, pt has discharge information from the hospital team, asked if that could be sent to her, will send via [employer] message. Ninoska Aguilar RN documented in this encounter [facility] 08-16-[address] [facility] 08-15-[address] [facility] 08-15-2023 Note HNO ID: [id number] Author: Note, Interface Service: ? Author Type: ? Type: Progress Notes Filed: 08/15/2023 5:50 AM Note Text: Epic Scheduled Downtime: 08/15/2023 1:00:00 AM to 08/15/2023 5:38:[address] [facility] 08-14-[address] [facility] 08-13-[address] [facility] 08-12-[address] [facility] 08-11-[address] [facility] 08-10-[address] [facility] 08-09-[address] [facility] 08-09-[address] [facility] 08-09-[address] [facility] 08-08-[address] [facility] 08-07-[address] [facility] 08-05-[address] [facility] 08-05-2023 History of Present illness Narrative This visit was performed virtually due to the COVID-19 epidemic as an effort to protect patients and minimize exposure. This Team Access Model visit is a virtual encounter. It required patient-provider interaction for the medical decision making as documented below. Nutrition Therapy Initial Assessment Nutrition Diagnosis: Malnutrition, related to, chronic illness, as evidenced by Weight loss, inadequate intake of meals . RECOMMENDED MALNUTRITION DIAGNOSIS: MODERATE PROTEIN-CALORIE MALNUTRITION NUTRITION CARE PLAN Nutrition Intervention 08/05/2023: Initiate Peptimen 1.5 @ 20ml/hr increasing by 5ml/hr every 12 hours until goal rate of 60ml/hr x 20 hours is reached (Goal rate provides 1200cc TV, 1800 calories, 82g protein) Flush with minimum 100cc 4x day. Reliazorb may be needed as intervention d/t pancreatic insufficiency. Continue to drink PO as able. Nutrition Monitoring & Evaluation: Monitor weight status and labs as available. Monitor diet recall for adherence to recommendations. Need for Follow up: x 1 month Patient presents with GI issues that started in February, got progressively worse in April. Patient has history of SIBO that has been treated. Patient has pancreatic insufficiency, taking Creon. Patient has had significant weight loss, shares that she feels weak and has mineral deficiencies. Patient scheduled for enteral placement this Tuesday 08/07. Patient uses Prime and Liquid IV, shares that she is having trouble staying hydrated. Patient has history of gastric bypass, revision done 06/2022. Patient reports that within the last 24 hours she has only consumed a small portion of cream of wheat and applesauce, which does not always stay down. Patient has been trying to drink protein shakes ([employer] 2x day) despite having portions come up in vomiting. 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 Resting Metabolic Rate: 1530 Malnutrition Screening Significant unintentional weight loss? No Eating less than 75% of usual intake for more than 2 weeks? No Potential Signs of Inflammation: chronic condition Education Materials Provided: None this visit READINESS TO LEARN Cognitive ability: Alert and oriented Motivation to learn: Interested Family support: Unable to assess - Family not present Instruction provided to: Patient Patient learns best by: Unable to Assess Factors affecting learning: Unable to assess Physical limitations affecting learning: None Referred/Supervised by: Juan/Lopez MNT Billing Type: Initial Assess/15 min 2 units SIGNATURE: Moraima Cary RD PATIENT NAME: Melina Díaz DATE: August 05, 2023 TIME: 10:06 AM PAGER: N/A documented in this encounter [facility] 08-04-2023 Miscellaneous Notes Per patient's request, repeat labs drawn on 07/31/23. Patient was last seen by Dr. Zafar 07/27/23 and noted plan for Corpak placement and and admission to start EN (scheduled 08/07/23). Labs notable for slightly low K+ (3.6) which is decreased from 07/13 level (3.8). Since patient will be admitted on Thursday for EN initiation, plan to monitor labs since patient is not currently on oral supplementation. Labs relayed to Dr. Zafar. Adriana Epps RD, LD, [facility] Patient: MELINA DÍAZ ([id number]) Female, Age: 47; Active Group: IRP; IRP MD: HAMLET ZAFAR MD Lab Collected 07/31/2023 Na (mEq): 141 (136-144) K (mEq): 3.6 (L: 3.7-5.1) Cl (mEq): 102 (97-105) CO2 (mmol/L): 27 (22-30) BUN (mg/dL): 7 (7-21) Creatinine (mg/dL): 0.66 (0.58-0.96) Glucose (mg/dL): 88 (74-99) Calcium (mg/dL): 9.6 (8.5-10.2) Total Protein (g/dL): 7 (6.3-8) ALT (U/L): 18 (7-38) Alb (g/dL): 4.8 (3.9-4.9) AST (SGOT, U/L): 17 (13-35) Alk Phos (g/dL): 125 (H: 34-123) Total Bili (mg/dL): 0.5 (0.2-1.3) Mg (mg/dL): 2.1 (1.7-2.3) PO4 (mg/dL): 3.6 (2.7-4.8) documented in this encounter [facility] 08-04-2023 Note HNO ID: [id number] Author: Susan Zapata LPN Service: ? Author Type: LICENSED NURSE Type: Progress Notes Filed: 08/04/2023 6:19 AM Note Text: Please verify and cosign Susan Zapata LPN [facility] 08-04-2023 History of Present illness Narrative Please verify and cosign Susan Zapata LPN documented in this encounter [facility] 08-03-[address] [facility] 08-03-2023 Instructions Cecil Schneider APRN.CNP - 08/03/2023 2:28 PM EST Start Cymbalta We will get you on ketamine infusion list documented in this encounter [facility] 08-03-2023 History of Present illness Narrative SUBJECTIVE: The patient presents to [facility] Pain Management Department for a follow-up appointment for pain in the abdomen. Pain is worse with movement. Eating, full stomach. Side effects from gabapentin and lyrica. Failed: Robaxin, baclofen, zanaflex, elavil, paxil, oxycodone She is scheduled to get feeding tube next week It is described as: aching(+) burning(-) stabbing(+) The patient rates it as a 8/10. The pain is worse when the patient performs the following actions: constant. FH: patient denies any family history of the chief complaint for this visit SH: denies illicit drug use Is the patient receiving analgesia/pain relief from the current medications? (-) Has the current medication improved activities of daily living? (-) Have the current medications been associated with any adverse events? (-) Has the patient displayed any aberrant drug-related behaviors? (-) Last took opioid medication: last while in hospital Relevant [place] records were reviewed. Physical therapy in last 6 months: no Questionnaires: Patient Entered Questionnaires PROMIS Score Percentiles PROMIS Global Health Scale 05/20/2023 05/20/2023 06/04/2023 Physical Health Percentile 4 4 4 Mental Health Percentile 19* 19* 19* Physical Health 08/05/2022 05/20/2023 07/09/2023 Physical Function Percentile 0 2 0 Pain Interference Percentile 1 4 1 Percentiles provide an indication of how the patient's score ranks in relation to the general population. Higher percentile rankings indicate better function/quality of life. 50th percentile is the average of the general population and indicates half of respondents had a worse score. > 31st percentile is within normal limits or better * < 31st percentile is at least SD worse than population, which may be clinically relevant < 16th percentile is at least 1 SD worse than population and warrants attention Depression Screening: PHQ-9 08/19/2016 Score 6 PHQ-9 Self-Harm (Item 9) response options: 0 Not at all 1 Several days 2 More than half the days 3 Nearly every day PHQ-9 Levels: 0-4 Minimal depression 5-9 Mild depression 10-14 Moderate depression 15-19 Moderately severe depression 20-27 Severe depression PHQ-9 Score 08/19/2016 6 (0-4) minimal depression, (5-9) mild depression, (10-14) moderate depression, (15-19) moderately severe depression, (20-27) severe depression No flowsheet data found. No flowsheet data found. REVIEW OF SYSTEMS: GENERAL: (+) weight loss, (+)malaise, (-)fevers. HEENT:(-)headaches. NECK: (-) for lumps, goiter, (-)pain and (-)significant neck swelling. RESPIRATORY: (-) for cough, wheezing or shortness of breath. CARDIOVASCULAR: (-) for chest pain GI: (+) abdominal discomfort SKIN: (-) for lesions, rash, and itching. All other reviewed and negative other than HPI. OBJECTIVE: GENERAL: Well appearing. No acute distress PSYCH: Mood and affect is appropriate. Awake, alert, and oriented x 3 SKIN: Skin color, texture, turgor normal, no rashes or lesions Otolaryng/HEENT: Normocephalic, atraumatic. EOM intact RESP: Respirations are unlabored CARD: Regular rate. Cap refill <2s. Extremities pink and well perfused at nailbed. GI: Tenderness to epigastric area and left upper quadrant MSK: Bilateral upper and lower extremity strength is normal and symmetric. No atrophy or tone abnormalities are noted. Gait: Gait is smooth ASSESSMENT AND MEDICAL DECISION MAKING: The patient is a 47 year old female with chronic abdominal pain with unclear etiology. She has pending lab work. Following with GI. She is going for feeding tube next week. Pain is constant worse with any movement, eating, abdomen distension. She has failed multiple medications. She will try Cymbalta 20 mg daily. - Per Dr Echeverria last note patient is candidate for ketamine. We did discuss long wait list. Will add her to wait list. Dx: Abdominal wall pain in left upper quadrant PLAN: 1) Start cymbalta 20 mg daily 2) Ketamine infusion 3) Return to clinic (in-person office visit or virtual visit/telemedicine) after all above completed fully. - I spent a total of 30 minutes on the date of the service which included: *preparing to see the patient *[id number] patient care *completing clinical documentation *obtaining and/or reviewing separately obtained history *performing a medically appropriate examination *counseling and educating the patient/family/caregiver *ordering medications, tests, or procedures *communicating with other HCPs (not separately reported) *independently interpreting results (not separately reported) *communicating results to the patient/family/caregiver *care coordination (not separately reported). Of this, greater than 50% of this was spent in the presence of the patient for purposes of education and counseling regarding the diagnosis and treatment of pain. Patient is aware that any diagnostic testing is best discussed in person to fully explain the significance and resulting treatment plan. Patient is aware that they will need a follow up office visit/virtual visit for proper care. Patient agrees with above. Cecil Schneider APRN.CNP August 03, 2023 documented in this encounter [facility] 07-30-2023 Miscellaneous Notes Attempted to reach the patient at the contact number that they provided [phone] (home) . Unable to speak with patient so without identifying the patient the following information was left on their voice mail: Date of procedure, location and report time Prep instructions NPO instructions were reviewed. Instructions to contact their primary care provider regarding their medications and which medications to stop in preparation for their procedure Instructions to completely read and follow the written instructions that they recieved regarding their procedure. Number to call with questions or concerns [phone] Marissa Deleon RN documented in this encounter [facility] 07-29-[address] [facility] 07-29-[address] [facility] 07-29-2023 Miscellaneous Notes Pt called and asked if Dr. Zafar could now help with her paperwork, due to PCP recommending now our team do for Dr. Zafar putting in tube and following for other needs. Let pt know would ask Dr. Zafar and get back to her. Ninoska Aguilar, PIETRO -Dr. Maza would like for Dr. Zafar to take over the patients short term disability paperwork. Pt would like to discuss with the office. [phone] documented in this encounter [facility] 07-29-2023 History of Present illness Narrative POPULATION HEALTH NAVIGATION OUTREACH Action/I [place] Support: Called pt to schedule an appt in Pain Management. Lvm for pt to call [phone] for scheduling. Patient Identified by Name and : NO Outreach Outcome/Action Unable to reach patient: Left message Did you use a PCP flex slot to schedule this appointment? N/A Reason for Outreach Care Gap or Scheduling/Wellness visits Payer: Payor: [employer] / Plan: [employer] PPO / Product Type: PPO / Care Gap Reviewed:: Specialty Scheduling Reminder: Reminder note to check Health Maintenance for items below Health Maintenance items due: Hepatitis B Vaccine(1 of 3 - 3-dose series) Never done Annual PCP Team Chronic Disease Visit Never done Hepatitis C Screening Never done HIV Screening Never done Pap Testing Never done HPV Testing Never done DTaP,Tdap,Td Vaccine(2 - Td or Tdap) due on 04/20/2016 Lipid Screening Never done Depression Assessment Never done Influenza Vaccine(1) due on 05/15/2023 Covid-19 Vaccine( - 2022-24 season) due on 05/15/2023 Navigation Signature: Olena Coleman July 29, 2023 2:46 PM documented in this encounter [facility] 07-29-2023 History of Present illness Narrative VIRTUAL VISIT PROGRESS NOTE This is a virtual visit using [employer] Video Visit. It required patient-provider interaction for the medical decision making as documented below. I have communicated my name and active licensure. The patient's identity and physical location were verified at the time of this visit. 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 Melina Díaz is a 47 year old female seen for patient request for being placed on short-term disability. I did discuss with her that from my perspective I am not sure why she is having the difficulties with her gastrointestinal symptoms, which is why I have referred her to the gastroenterology to see if there is sort of absorption problem because per her post surgical anatomy she should be absorbing normally or at least close to normally. Her micronutrients have been stable. Her weight has been essentially stable with perhaps a small amount of weight loss over the past several months, but it is not concerning on a BMI scale. Some of these are not congruent with her reported symptoms. Because of this I have referred her to gastroenterology and she is now seeing gut rehabilitation. They are planning on a feeding tube that is nasoenteric. I did discuss with her that if the gut rehabilitation team feels that there is no other solution other than gastric bypass reversal that can be considered and I would be willing to undertake that procedure for her, of course without knowing for sure if it will help her given we do not know why she is having the symptoms to start with. I also discussed with her that I have done short-term disability in the past for recovery from surgery but if it is for a long-term issue like this it would be better served by gastroenterology or a family doctor seeing her more frequently, assessing their interventions and determining whether she can work or not. From my perspective I feel people can work with a feeding tube in place except in an unusual circumstances. I am also not an expert in determining any have long-term disability I would defer that to another physician. I also discussed with her that I understand she is looking to have a transoral reduction of her pouch outlet, And that I am not sure that this is the best idea given her symptoms of nausea as this would decrease the outflow of food. If they feel very confident that her symptoms are due to dumping this may help but adding a mechanical decrease in pouch outflow may significantly worsen her symptoms rather than improve them. VIDEO EXAM: (if completed, performed via video enabled technology) GENERAL: alert and appropriate, in no distress, well-hydrated, well nourished, and happy, smiling, interactive ASSESSMENT: (R19.7) Diarrhea, unspecified type (primary encounter diagnosis) (R11.0) Nausea PLAN: Follow up in 3-6 months, or sooner if needed. Can follow up with bariatric medicine for vitamin level assessments if/when these are not being measured by the [facility]. Sanford Ozuna MD documented in this encounter [facility] 07-27-[address] [facility] 07-27-2023 History of Present illness Narrative Nutrition Assessment Intake: Appetite is poor. Patient follows a low simple sugar, GI soft diet, mostly soft foods taking multiple small meals. This is not nutritionally adequate. Patient also takes Protein 2O water nutrition supplement (15 grams protein per serving), Fairlife Protein supplement and 16 oz Liquid IV ORS per day. Patient reports in the past week she has had difficulty tolerating po intake and has been taking exclusively liquids. She reports minimal intake over the past 2 days due to ongoing nausea and vomiting. She reports having abdominal pain, which is worse with po intake; 8/10 pain during visit today. Patient drinks 2 liters of fluid daily. Diet Recall: (Prior to 1 week ago) cottage cheese, cream of wheat (fairlife protein drinks); non flavored protein powder , protein 2O water, toast, eggs Diet Recall: (in the past 1 week) Chicken broth, chicken noodle soup, Fairlife protein drink, watery cream of wheat Beverages: 16 oz protein water O2 (15 g protein), 16 oz smart water with liquid IV, Prime electrolyte drink 16 oz (lower in sugar than ORS), tea w/ lemon, water (16 oz) Output: Urine output is has been decreased, reports color is dark brown. The patient reports completing a Miralax bowel clean out last Thursday (07/22/23). The patient has 10 bowel movements per day since starting Miralax 2 caps per day following bowel clean out last week. This is unchanged from previous visit in 06/2023. The patient reports not feeling any differently after bowel clean out. The output is watery. No frothy/foamy stools, no greasy/oily stools. Relation to food/ fluid 1-2 hrs, not immediate. Anthropometrics: Height: 5' 8 (1.72 m) Weight: 84.9 kg (07/27/23); 86 kg (07/13/23); 86.2kg (06/24/23) 88.8kg (04/22/23), 93.4kg (09/28/22), 92.8kg (08/29/22) Usual weight: 86 kg in past year Goal weight: 86 kg Dosing weight: 84.9 kg BMI: 28.46- overweight Weight has decreased by 8.5 kg over 10 months representing 9.1 % weight change - not clinically significant Weight has decreased by 1.1 kg over the past 2 weeks representing 1.3%, which is not clinically significant Estimated Daily Nutritional Needs: 1700 - 2120 kcals/day = 20 - 25 kcals/kg dosing weight 93 - 127 g protein/day = 1.1-1.5 g/kg dosing weight Nutrition Focused Physical Exam: Subcutaneous Fat Loss: Orbital: None Triceps: None Mid-axillary at the iliac crest: None Muscle Loss Locations: Temporalis: None Pectoralis: None Deltoids: None Interosseous: None Latissimus dorsi, trapezius: None Quadriceps: None Gastrocnemius: None Ascites: No Edema: No Functional status: Patient reports overall functional status has regressed and has felt weaker over the past 2 weeks. Potential Signs of Inflammation: chronic condition Potential micronutrient deficiency revealed in No deficiency identified ASSESSMENT OF MALNUTRITION: MILD PROTEIN-CALORIE MALNUTRITION In the context of Chronic Illness or Injury based on: Insufficient Energy Intake: Less than 75% energy intake compared to estimated needs for greater than or equal to [address] 07/27/23 Billing increments 2 units documented in this encounter [facility] 07-27-[address] [facility] 07-27-2023 History of Present illness Narrative [facility] Follow up visit This is a 47 year old female with a h/o sleeve gastrectomy with conversion to gastric bypass, who recently underwent revision of gastrojejunostomy. She continues with a physiology of diarrhea/malabsorption since 04/2023. She has been referred to the [facility] from Dr Maged Goddard ([facility]) for management of diarrhea/malabsorption. Patient was seen for initial visit on 07/13/[address] Zafar. Patient reported abdominal pain, blurry vision, sweating, 10-15 BM's per day that were watery consistency. Abdominal x-ray was ordered to r/o overflow diarrhea with plan if stool was present then would need clean out. Rectal manometry referral was made. Pt was educated on low simple sugar diet and ORS during visit. Creon dose was increased. Since last visit, patient had labs drawn and were mostly unremarkable. X-ray abdomen was completed locally, and showed dried stool throughout the colon; pt was advised to complete bowel clean out. Patient has rectal manometry completed, which revealed abnormal pelvic floor coordination. Today, patient reports she completed the bowel clean out last week, but does not feel any better. She is currently taking Miralax 2 caps per day and having 10 watery BM's per day (unchanged from previous visit). She reports difficulty tolerating po intake over the past week due to N/V, having episodes of emesis 4-5 times per day when eating food. Emesis usually occurs ~1 hr after eating. Oral food intake is also associated with 8/10 abdominal pain. Patient is inquiring if she should be started on TPN; decision was made to trial EN prior to pursuing PN. Plan for nasojejunal tube feeding placement via EGD next week with Dr. aZfar. Patient will be admitted after feeding tube placement for TF initiation. Referral was also placed to pelvic floor physical therapy by Dr. Zafar. Last Intestinal Surgery: 07/29/2022: Lap revision of gastrojejunostomy; additional SBR (-6 cm) ([facility] Dr Ozuna). 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 Patient follows a low simple sugar, GI soft diet, mostly soft foods taking multiple small meals. This is not nutritionally adequate. Patient also takes Protein 2O water nutrition supplement (15 grams protein per serving), Fairlife Protein supplement and 16 oz Liquid IV ORS per day. Patient reports in the past week she has had difficulty tolerating po intake and has been taking exclusively liquids. She reports minimal intake over the past 2 days due to ongoing nausea and vomiting. She reports having abdominal pain, which is worse with po intake; 8/10 pain during visit today. Patient drinks 2 liters of fluid daily. Diet Recall: (Prior to 1 week ago) cottage cheese, cream of wheat (fairlife protein drinks); non flavored protein powder , protein 2O water, toast, eggs Diet Recall: (in the past 1 week) Chicken broth, chicken noodle soup, Fairlife protein drink, watery cream of wheat Beverages: 16 oz protein water O2 (15 g protein), 16 oz smart water with liquid IV, Prime electrolyte drink 16 oz (lower in sugar than ORS), tea w/ lemon, water (16 oz) Output: Urine output is has been decreased, reports color is dark brown. The patient reports completing a Miralax bowel clean out last Thursday (07/22/23). The patient has 10 bowel movements per day since starting Miralax 2 caps per day following bowel clean out last week. This is unchanged from previous visit in 06/2023. The patient reports not feeling any differently after bowel clean out. The output is watery. No frothy/foamy stools, no greasy/oily stools. Relation to food/ fluid 1-2 hrs, not immediate. Laboratory: Component Latest Ref Rng & Units 07/13/2023 WBC 3.70 - 11.00 k/uL 4.86 RBC 3.90 - 5.20 m/uL 4.49 Hemoglobin 11.5 - 15.5 g/dL 13.2 Hematocrit 36.0 - 46.0 % 41.1 MCV 80.0 - 100.0 fL 91.5 MCH 26.0 - 34.0 pg 29.4 MCHC 30.5 - 36.0 g/dL 32.1 RDW-CV 11.5 - 15.0 % 14.1 Platelet Count 150 - 400 k/uL 269 Albumin 3.9 - 4.9 g/dL 4.2 Calcium 8.5 - 10.2 mg/dL 9.2 Bilirubin, Total 0.2 - 1.3 mg/dL 0.4 Alkaline Phosphatase 34 - 123 U/L 129 (H) AST 13 - 35 U/L 30 ALT 7 - 38 U/L 42 (H) Glucose 74 - 99 mg/dL 61 (L) BUN 7 - 21 mg/dL 11 Creatinine 0.58 - 0.96 mg/dL 0.58 Sodium 136 - 144 mmol/L 141 Potassium 3.7 - 5.1 mmol/L 3.8 Chloride 97 - 105 mmol/L 104 CO2 22 - 30 mmol/L 26 Anion Gap 9 - 18 mmol/L 11 eGFR >=60 mL/min/1.73m 113 Magnesium 1.7 - 2.3 mg/dL 2.1 Phosphorus 2.7 - 4.8 mg/dL 3.7 Component Latest Ref Rng & Units 07/13/2023 Vitamin E-alpha 6.0 - 23.0 mg/L 10.8 Vitamin E-gamma 0.3 - 3.2 mg/L 1.9 Copper 80 - 155 ug/dL 98 Methylmalonic Acid <=0.40 umol/L 0.25 Vitamin A 0.30 - 1.20 mg/L 0.37 Vitamin B6, Plasma 20.0 - 125.0 nmol/L 22.7 Zinc 60 - 120 ug/dL 67 Component Latest Ref Rng & Units 04/02/2023 06/26/2023 Iron 41 - 186 ug/dL 86 109 TIBC 232 - 386 ug/dL 322 364 Transferrin Saturation 15.0 - 57.0 % 26.7 29.9 Folate >4.7 ng/mL 7.7 Ferritin 14.7 - 205.1 ng/mL 271.0 (H) 349.0 (H) Component Latest Ref Rng & Units 04/02/2023 06/26/2023 Vitamin D 25 Hydroxy 31.0 - 80.0 ng/mL 23.6 (L) 19.6 (L) Vitamin B12 232 - 1,245 pg/mL 487 434 Vitamin B1 (TDP), Whole Blood 84.3 - 213.3 nmol/L 152.8 Stool Studies: Component Latest Ref Rng & Units 03/27/2023 04/03/2023 04/08/2023 04/21/2023 06/12/2023 Total Weight, Feces g 470 10 Collection Period (FECFAT) h Random Random Fat Quant, Feces DNR DNR Fat %, Feces <20 % fat 29 (H) 48 (H) Shigella spp./Enteroinvasive E.coli DNA Not Detected Not detected Not detected Campylobacter jejuni/coli DNA Not Detected Not detected Not detected Shiga toxin-producing gene(s) Not Detected Not detected Not detected Salmonella spp. DNA Not Detected Not detected Not detected Cryptosporidium Antigen by EIA Negative Negative for Cryptosporidium by EIA. Negative for Cryptosporidium by EIA. Giardia Antigen by EIA Negative Negative for Giardia lamblia by EIA. Negative for Giardia lamblia by EIA. C. difficile PCR Negative for C. difficile toxin by PCR Negative for C. difficile toxin by PCR Negative for C. difficile toxin by PCR Negative for C. difficile toxin by PCR Ova and Parasite Exam No Parasites Seen Occult Blood Exam Screen Negative Negative Panc Elastase, Fecal >=100 ug/g 61 (L) Medications: CURRENT MEDICATIONS Current Outpatient Medications Medication Sig baclofen 5 mg tablet Take 1 tablet by mouth three times a day. dicyclomine (BENTYL) 20 mg tablet Take 1 tablet by mouth two times a day. rigmuw-vyfrznbw-qynxlvs (CREON) 24,000-76,000 -120,000 unit delayed release capsule Take 1 capsule by mouth three times a day with meals. promethazine (PHENERGAN) 25 mg tablet Take 1 tablet by mouth every 8 hours as needed (for nausea). iv contrast (will be provided with radiology test) MRI PANC/JIMBO Inject, intravenously, once for 1 dose. No IV access, insert saline lock prior to the beginning of sedation, infusion, injection of imaging exam. Discontinue saline lock post exam. If Pt. has a central line or IVAD, may access for administration according to line specific nursing protocol. Once exam is complete flush line and de-access according to line specific nursing protocol in the MR contrast administration guidelines link. Artificial Tear, Hypromellose, 0.3 % gel Use 1 Drop in both eyes daily at bedtime. please avoid using the contacts and see your eye doctor in next few days tiZANidine (ZANAFLEX) 4 mg tablet Take 1 tablet by mouth every 8 hours as needed. loperamide (IMODIUM) 2 mg cap(s) Take 1-2 capsules by mouth three times a day as needed for diarrhea (for diarrhea> 3 times a day) for up to 15 days. semaglutide (OZEMPIC) 0.25 mg or 0.5 mg(2 mg/1.5 mL) pen Inject 0.5 mg subcutaneously one time a week. acetaminophen (TYLENOL) 325 mg tablet Take 2 tablets by mouth every 6 hours as needed for pain. cholecalciferol (VITAMIN D3) 1,000 unit tab tablet take 1 tablet by mouth once daily . BREAK OPEN AND RELEASE UNDER TONGUE FOR BEST ABSORPTION levothyroxine (SYNTHROID) 50 mcg tablet Take 50 mcg by mouth. cyanocobalamin, vitamin B-12, (B-12 COMPLIANCE) 1,000 mcg/mL kit 1 mL by INJECTION(UNSPECIFIED PARENTERAL ROUTES) route one time a week. ALPRAZolam (XANAX) 0.5 mg tablet Take 0.5 mg by mouth at bedtime as needed. dextroamphetamine-amphetamine (ADDERALL) 20 mg tablet Take 20 mg by mouth twice daily. No current facility-administered medications for this visit. Prior response to [facility] therapy: ORS: liquid IV, pedialyte; does not feel hydrated, however previous labs did not show any s/s of dehydration Benefiber: takes Benefiber in morning; does not feel like it helps Imodium: previously took up to 10 pills daily; did not help Lomotil: tried; did not help Codeine: has tried; did not help Tincture of Opium: has tried; did not help Pancreatic Enzymes: Creon 24 3 caps with meals and does not know if this helps. Noting low pancreatic elastase level in 04/2023 Probiotics: previously took OTC daily, can't remember brand - no longer taking and did not feel helped Antimicrobials: cipro, xifaxin for SIBO; helped with gas/burping/bloating Antisecretory: PPI capsules (opened), carafate - for mild chronic inflammation Bile acid binding resin: cholestyramine made diarrhea worse Growth Hormone: N/A GLP2: N/A ALLERGIES ALLERGIES Allergen Reactions Gabapentin Angioedema Patient reports throat swelling with gabapentin. Tramadol Hives Adhesive Tape (Serina* Rash, Swelling, Itching Nsaids (Non-Steroid* Contraindication-Medical Surgical S/p gelacio en y gastric bypass Paxil [Paroxetine] Intolerance Gi upset Scopolamine Other: See Comments Blurred vision Toradol [Ketorolac * Hives, Swelling I have reviewed allergies and medications. PAST MEDICAL HISTORY PAST MEDICAL HISTORY Diagnosis Date Breast mass 11/04/2007 Right, biopsy benign Encounter for cosmetic surgery Endometriosis Excess skin of arm Fracture , ankle Localized adiposity Morbid obesity (HCC) Ovarian cyst Thyroid disorder PAST SURGICAL HISTORY PAST SURGICAL HISTORY Procedure Laterality Date ASSIST ONLY x3 EGD multiple GASTRIC BYPASS HX 12/2021 conversion from gastruc sleeve LAPAROSCOPY SURG CHOLECYSTECTOMY 2004 Cholecystectomy, lap PAST SURGICAL HISTORY OF 10/28/2011 gastric sleeve PAST SURGICAL HISTORY OF 2011 excision of goiter PAST SURGICAL HISTORY OF thyroid mass removed REMOVAL STOMACH,GELACIO-EN-Y 07/29/2022 TOTAL ABDOMINAL HYSTERECT W/WO RMVL TUBE OVARY 05/01/2010-05/2011 Hysterectomy, partial uterus then completion Anthropometrics: Height: 5' 8 (1.72 m) Weight: 84.9 kg (07/27/23); 86 kg (07/13/23); 86.2kg (06/24/23) 88.8kg (04/22/23), 93.4kg (09/28/22), 92.8kg (08/29/22) Usual weight: 86 kg in past year Goal weight: 86 kg Dosing weight: 84.9 kg BMI: 28.46- overweight Weight has decreased by 8.5 kg over 10 months representing 9.1 % weight change - not clinically significant Weight has decreased by 1.1 kg over the past 2 weeks representing 1.3%, which is not clinically significant Estimated Daily Nutritional Needs: 1700 - 2120 kcals/day = 20 - 25 kcals/kg dosing weight 93 - 127 g protein/day = 1.1-1.5 g/kg dosing weight Nutrition Focused Physical Exam: Subcutaneous Fat Loss: Orbital: None Triceps: None Mid-axillary at the iliac crest: None Muscle Loss Locations: Temporalis: None Pectoralis: None Deltoids: None Interosseous: None Latissimus dorsi, trapezius: None Quadriceps: None Gastrocnemius: None Ascites: No Edema: No Functional status: Patient reports overall functional status has regressed and has felt weaker over the past 2 weeks. Potential Signs of Inflammation: chronic condition Potential micronutrient deficiency revealed in No deficiency identified ASSESSMENT OF MALNUTRITION: MILD PROTEIN-CALORIE MALNUTRITION In the context of Chronic Illness or Injury based on: Insufficient Energy Intake: Less than 75% energy intake compared to estimated needs for greater than or equal to 1 month Overall Assessment: Multiple bariatric surgeries H/o C difficile colitis Vitamin D deficiency Mild Malnutrition [facility] Recommendations: Diet: Hi salt, Hi starch, and Low simple sugar food choices with multiple small meals; sip fluids between meals Oral Rehydration Solution (ORS): Increase ORS to 1-1.5 liters sipped throughout the day ONS: Continue Fairlife and Protein 2O supplements EN: indicated for inadequate po intake/ po intolerance (N/V) - Recommend nasojejunal tube placement for TF initiation. Pt to have placed on 08/07/[address] Zafar via EGD. Patient to be admitted following placement for TF initiation. - TF goal: Nutren 1.5 at 50 ml/hr over 24 hrs providing 1200 ml product, 1800 kcals, 82 g protein, 916 ml free water. Flush 30 ml q 4 hrs for tube patency - Recommend 2 cartridges of Relizorb in tandem q 24 hrs (hx low pancreatic elastase) - Will need HEN teaching during admission PN: Not indicated at this time Vitamin & Mineral Supplements: - Continue bariatric vitamin daily - taking, sublingual - Continue Vit D 50,000 international unit(s) daily - taking - Continue Vitamin B12 1000 mcg injection once monthly - taking - Continue Calcium Citrate 950 mg BID - taking - Once admitted for TF, start thiamine 100 mg daily Probiotics: Continue OTC daily probiotic - no longer taking and did not feel helped Antidiarrheals: TBD after all other testing Pancreatic enzyme replacement: Continue Creon 24, take 3 tablets with meals and 2 tablets with snacks - taking Labs: Not due at this time Collaborated with Dr. Zafar and orders written. Referral: Pelvic Floor Physical Therapy Patient Group: [facility] Follow Up: Return to clinic in [address] Zafar and CGRT RD. Discussed with Dr. Zafar and [facility] to continue to follow for now, but may be referred to EN clinic in future. Signed by: Tonya Felipe RD Date: 07/27/2023 [facility] STAFF PHYSICIAN NOTE OF PERSONAL INVOLVEMENT IN CARE I have reviewed the progress note obtained and documented by the Nutrition Clinician Tonya Felipe RD. I have explored in detail with the patient the HPI and ROS, and they are summarized below. I have discussed the case and management of the patient's care with the Nutrition Clinician. I agree with the recommendations as outlined by clinician above. I have reviewed available labs, and my exam and A/P are as follows: Melina Díaz is a 47 year old FEMALE with history of Gastric sleeve (2011) with conversion to Gastric bypass (2021) with lap revision of gastrojejunostomy with ongoing issues with diarrhea, nausea and vomiting. Also history of hypothyroidism, ADHD, Vitamin D deficiency and pre diabetes. Seen in clinic for recommendations for bowel symptoms and nutritional status Last Seen in Clinic on 07/13/23, Where the plan was to stop the ozempic, assess bloodwork and AXR to assess for constipation and ARM. Today patient states She completed the purge last week at the advice of her GP, she did the miralax prep and has been taking it twice a day since then, she still has diarrhea, ranges in the amount but mainly after she eats but sometimes at night. Non bloody but still has urgency. She had ARM done that showed some anorectal dis coordination. Her nausea and vomiting has been worsened over the last week after eating some solid food so she is sticking to mainly liquids. She takes phenergan PRN and feels it is not working. She is also anxious to have the procedure done by the endobariatric team and is awaiting seeing their psychologist that she expressed frustration that it would take until Sep for her to see them. She denies any fever or chills, no clear dysphagia but intermittent heart burn. No peripheral swelling Urine she goes 2-3 times a day but dark and small volume. She just wants to feel better, she is stressed about get disability for work while she gets investigated. ROS: ROS completed and negative outside of the systems documented in the HPI. INVESTIGATIONS: All available pertinent interval investigations were reviewed and were notable for: ENDOSCOPY/PATHOLOGY: EGD/EUS 06/26/23 Impression: - There was no sign of significant pathology in the pancreatic body and pancreatic tail. - The head of the pancreas and ampulla could not be visualized due to gelacio-en-y gastric bypass anatomy. 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 No ulcers, fistulas or stenosis. - Normal esophagus. No hiatal hernia. No esophagitis. - Normal jejunum. - No specimens collected. 04/23/2023 Colonoscopy Impression: - Diverticulosis in the sigmoid colon. - The examination was otherwise normal. - Biopsies were taken with a cold forceps from the right colon, left colon and transverse colon for evaluation of microscopic colitis. Biopsy Colon: no significant pathologic changes 04/10/2023 Biopsy Colon: no pathologic diagnostic abnormality; negative for dysplasia or malignancy 04/09/2023 Biopsy Small Intestine: no diagnostic alteration; no evidence of celiac disease 04/09/2023 Biopsy Stomach: Oxyntic mucosa with chronic inactive gastritis; negative for Helicobacter pylori IMAGING: AXR 07/13 -Clips in gallbladder fossa -No SB dilation or fluid filled levels Gas and stool in colon Osseous in tact. MRI Panc/Jimbo: Mild pancreatic atrophy but no cystic or solid mass, or other findings to explain diarrhea. Mild central bile duct prominence is likely postcholecystectomy change. Expected changes following Gelacio-en-Y gastric bypass LAB WORK: See Above Celiac screen still active. Physical Exam: BP 119/72 (BP Site: Left Arm, BP Position: Sitting, BP Cuff Size: Large Adult) Pulse 74 Temp 37.3 C (99.1 F) (Temporal) Ht 172.7 cm (5' 8 ) Wt 84.9 kg (187 lb 3.2 oz) SpO2 97% BMI 28.46 kg/m General: Appears a bit anxious but resting comfortably HEENT: No icterus. Moist mucus membranes, good dentition, no mouth sores Neck: JVP non-distended Cardiovascular: PPP Normal HR. Respiratory: Normal respiratory effort. Abdomen: Sharp localized pain along the 9th rib and in LUQ, + Carnetts sign. Otherwise soft and non tender. Extremities: Edema none. Muscle mass no loss. preserved subQ fat reserves. Neurologic: Awake and alert. Assessment IMPRESSION: Melina Díaz is a 47 year old female with history of Gastric sleeve (2011) with conversion to Gastric bypass (2021) with lap revision of gastrojejunostomy with ongoing issues with diarrhea, nausea and vomiting. Also history of hypothyroidism, ADHD, Vitamin D deficiency and pre diabetes. Seen in clinic for recommendations for bowel symptoms and nutritional status Melina Díaz had the opportunity to have all their concerns and questions addressed DIAGNOSTIC ISSUES AND PLAN: #) Nutritional status Mild malnutrition Has had total 9% weight loss in last year (not significant) and reassured that all electrolytes and micronutrients were normal on last assessment. She is taking majority of calories in liquid diet currently. Discussed would still maximize liquid hydration and low sugar protein drinks to help support her in this time while she awaits endoscopy next week to place a CORPAK to start tube feeds. Discussed would like to start enteral nutrition to help support prior to offering PN at this time. Suspect she will need the CORPAK for the next 6-8 weeks. Melina was agreeable to this plan. Continue with the higher dose of creon at this time #) Abdominal pain Sharp and worsens with abdominal wall engagement. May benefit from trigger point injections and will refer to pain management for that #) Awaiting endo bariatric revision Mentioned she should reach out to Dr. Andrade in regards to having another psychologist to assess her due to wait time until she is cleared for the procedure. I cannot offer any other alternative at this time. #) Nausea/vomiting Suggest trial of low dose olanzapine at night as a neuromodulator for NV. Also to take the phenergan prior to eating and low volumes of her oral intake #) Diarrhea/Overflow She did have one purge cleanse, she does have some abnormal rectal muscle relaxation/coordination will refer to Pelvic floor hand and for her to continue with miralax. FOLLOW-UP: at time of endoscopy (08/07/23) chika Zafar MD, MSc, [facility], [facility] Associate Staff, Department of Gastroenterology, Hepatology & Nutrition [facility] [place] [facility] 07/27/23 Total time of this patient encounter today was >40 mins, including: preparation for visit, direct time with the patient, examination, orders, review of records, and documentation. documented in this encounter [facility] 07-21-2023 Note HNO ID: [id number] Author: Tonya Felipe RD Service: ? Author Type: Registered Dietitian Type: Progress Notes Filed: 07/27/2023 3:25 PM Note Text: Abstract moved to clinic visit with Dr. Zafar on 07/27/[address] [facility] 07-21-2023 History of Present illness Narrative Abstract moved to clinic visit with Dr. Zafar on 07/27/[address] documented in this encounter [facility] 07-21-[address] - 07/21/2023 7:53 AM EST Nutrition Intervention 07/17/2023: Modify type and amount of food consumed for meals and snacks: 1. Small and frequent intake of foods and drinks as tolerated 2. Use protein shake (2-3 per day) to increase calorie and protein intake 3. Always pair protein with carbohydrates (no naked carbohydrates) 5. Drink 64 ounces per day water. Fluids should follow these guidelines: No carbonation, no caffeine, no calories, no alcohol. -Trial protein rosa versus electrolyte drinks with added sugar 6. Separate eating and drinking by 30 minutes 7. Take daily multivitamin with 200 % daily value for all vitamin/minerals plus VIt D3 3,000 IU, Vit B12 500 mcg, Iron 45 mg and calcium citrate 6583-4523 mg/day . It is okay to use combination vitamin/minerals to reduce pill volume. -Try Barimelts, liquid forms of vitamins (Centrum liquid MVI, wellesse liquid calcium citrate, [employer] powdered bariatric vitamins) Protein needs: 89 gm per day Nutrition Monitoring & Evaluation: 1-2# weight loss per week Need for Follow up: 1-2 weeks pre-procedure (call our office line at [phone] option 3) documented in this encounter [facility] 07-20-[address] [facility] 07-20-2023 History of Present illness Narrative Virtual visit, 20 minutes, patient agreed I have communicated my name and active licensure. The patient's identity and physical location were verified at the time of this visit. 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 47 yo with multiple bariatric surgeries - sleeve, sleeve revision, and now a RYGB. Since then, about one year ago, she c/o of darrhea, C difficile positive once and she responded to vancomycin. Recent C difficile negative. Now with about 5 bm daily with abd pain, is not able to ID a specific food that causes the diarrhea. Worse with cholestyramine, no help with creon. Also on zanaflex and narcotic for abd pain. CT, EGD, colonoscopy with biopsies - no cause for sx found. Fecal elastase low. 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 Antibiotics for SIBO helped partially. Since last visit, she has lost 3 pounds, has diarrhea, without constipation. Stopped cholestyramine and narcotics. She has seen Dr. Zafar and Sera Holbrook. She is trying enteral nutrition as recommended. MRI of the pancreas and EGD/EUS essentially negative. Creon has been increased. Could not expel the balloon at ARM. Diarrhea and abd pain - will recommend she follow all recommendations from consultants, and be considered for long-term TPN if treatment plans fail. Refill Baclofen and Bentyl. Maged Goddard MD documented in this encounter [facility] 07-17-[address] [facility] 07-17-2023 History of Present illness Narrative [facility] Nutrition Therapy: Virtual Consult - Initial Assessment I have communicated my name and active licensure. The patient s identity and physical location were verified at the time of this visit. 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 Nutrition Diagnosis: Altered Gastrointestinal Tract Function, related to, S/P bariatric surgery, as evidenced by surgical history and patient update. . RECOMMENDED MALNUTRITION DIAGNOSIS: MODERATE PROTEIN-CALORIE MALNUTRITION NUTRITION CARE PLAN Nutrition Intervention 07/17/2023: Modify type and amount of food consumed for meals and snacks: 1. Small and frequent intake of foods and drinks as tolerated 2. Use protein shake (2-3 per day) to increase calorie and protein intake 3. Always pair protein with carbohydrates (no naked carbohydrates) 5. Drink 64 ounces per day water. Fluids should follow these guidelines: No carbonation, no caffeine, no calories, no alcohol. -Trial protein rosa versus electrolyte drinks with added sugar 6. Separate eating and drinking by 30 minutes 7. Take daily multivitamin with 200 % daily value for all vitamin/minerals plus VIt D3 3,000 IU, Vit B12 500 mcg, Iron 45 mg and calcium citrate 4132-5246 mg/day . It is okay to use combination vitamin/minerals to reduce pill volume. -Try Barimelts, liquid forms of vitamins (Centrum liquid MVI, wellesse liquid calcium citrate, [employer] powdered bariatric vitamins) Protein needs: 89 gm per day Nutrition Monitoring & Evaluation: 1-2# weight loss per week Need for Follow up: 1-2 weeks pre-procedure (call our office line at [phone] option 3) Patient presents for nutrition consult for complications of bariatric surgery and consideration of possible APC revision. S/p LSG 11 years ago at with conversion to RYGB at [facility] in December 2021. Patient notes additional surgical revision of GJA due to ulceration and vagotomy at [facility] with Dr. Ozuna on 07/29/2022. Patient reports persistent n/v (vomiting a couple times per day) and diarrhea (10-15 bowel movements per day). Appetite is decreased and patient has difficulty tolerating most foods and drinks. She is taking creon with minimal relief. Patient was on TPN for 3 months last year however currently is using oral nutrition supplements. Height and weight discussed today. Presents with BMI of 28.89 kg/m2. Nonsignificant weight loss of 5 lbs (2.6% weight loss x 3 months). Significant medical comorbidities and history include history of jarred ulcer, marginal ulcer, c diff colitis, nausea, vomiting, intercostal neuralgia, breast mass, neck mass, hypothyroid, COREEN, ADHD, pelvic abscess. Patient is following low-rouhage diet. Diet recall indicates inconsistent meal pattern with patient frequently skipping snacks and meals due to n/v and diarrhea resulting in inadequate daily energy and protein intake. She is tolerating some protein shakes although not consuming enough to meet protein and calorie needs. Consuming sufficient intake of hydrating fluids however some beverages with added sugar could be contributing to possible dumping syndrome along with consumption of some simple carbohydrates without paired protein source. Not taking most vitamins due to poor tolerance increasing patient risk for vitamin deficiencies. Consider possible initiation of nutrition support if patient continues with poor tolerance to oral intake. Danielson body weight: 164 lbs. Protein needs estimated: 89gm (1.2 g protein/kg IBW) Resting Metabolic Rate: 1553 Energy needs estimated for weight maintenance: 5698-2506 kcal/day (20-25 kcal/kg CBW) After session today, patient able to verbalize protein/fluid/exercise goals, recommendations for vitamin/minerals, use of protein shakes during post-procedure liquid diet. Also able to demonstrate post-procedure diet advancement/portion control using food models. Anticipate post-procedure compliance. 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 Resting Metabolic Rate: 1555 Malnutrition Screening Significant unintentional weight loss? No Eating less than 75% of usual intake for more than 2 weeks? Yes NUTRITION FOCUSED PHYSICAL EXAM: Subcutaneous Fat Loss Orbital Mild Triceps Mild Mid-axillary at the iliac crest Mild Muscle Loss Locations: Temporalis Mild Pectoralis Moderate Deltoids Mild Interosseous None Latissimus dorsi, trapezius Unable to determine at this time Quadriceps Unable to determine at this time Gastrocnemius Unable to determine at this time Potential micronutrient deficiency revealed in: Unable to determine at this time Edema: No Ascites: No Assessment of Functional Status: Difficulty with ambulation or normal activities, not feeling up to most things, Potential Signs of Inflammation: no identifiable sources In the context of Chronic Illness or Injury based on: Insufficient Energy Intake: Less than 75% energy intake compared to estimated needs for greater than or equal to 1 month Subcutaneous Fat Loss: Mild Loss Muscle Loss Moderate Loss to Mild Loss Education Materials Provided: None this visit READINESS TO LEARN Cognitive ability: Alert and oriented Motivation to learn: Interested Family support: Unable to assess - Family not present Instruction provided to: Patient Patient learns best by: Multiple Methods Factors affecting learning: Emotional Factors: Frustrated Physical limitations affecting learning: None Referred by: Dr. Andrade MNT Billing Type: Initial Assess/15 min 3 units SIGNATURE: Sofie Perales RD PATIENT NAME: Melina Díaz DATE: 07/17/2023 TIME: 10:07 AM PAGER: N/A documented in this encounter [facility] 07-14-[address] [facility] 07-14-2023 History of Present illness Narrative Images from the original note [place] [id number] [address] [id number] GI/Bariatric Endoscopy Clinic Visit Gastroenterology, Hepatology, and Nutrition Department ?[facility] [place] ([facility]) ? 07/14/2023 ? The patient encounter is a virtual/telephone visit today, 07/14/2023, in lieu of an office visit due to the current COVID-19 pandemic crisis and need for social distancing. Reason for Visit: Complications of bariatric surgery s/p RYGB c/b dumping syndrome and weight gain Patient is: New patient Location of Provider: Hospital Location of Patient: Home Consent for virtual care, including informing the patient that insurance will be billed, and that in-person care is available in case of emergencies or as needed otherwise, was discussed at the time of scheduling. Dear Sean Ruiz DO, ? I had the pleasure of seeing Melina Díaz in the [facility] GI/Bariatric Endoscopy Clinic for complications of bariatric surgery s/p RYGB c/b dumping syndrome and weight management. ?? The patient is a 47 year old female with past medical history as below presenting to us with complications of bariatric surgery s/p RYGB c/b dumping syndrome and weight management. Prior History: Melina Díaz has a history of obesity since childhood, teenage years. Comorbidities are: overweight s/p RYGB, history of jarred ulcer, marginal ulcer, c diff colitis, nausea, vomiting, intercostal neuralgia, breast mass, neck mass, hypothyroid, COREEN, ADHD, pelvic abscess Melina Díaz underwent LSG 11 years ago then underwent RYGB with Dr. Ozuna on 07/29/2022. Presleeve weight was 310 lbs and lowest weight she got down to was 174 lbs. Her prebypass weight was 267 pounds with a post bypass faustina weight of 190 pounds, over 1 year, todays weight. The patient then experiencing diarrhea multiple times a day after bypass surgery which started 4 months ago. Also complains of abdominal bloating, nausea, vomiting. She takes creon started 1.5 months ago which does not help. She is on ozempic had held as discussed with IBD, then she restarted as this did not help with symptom improvement. The patient has since undergone EGD for endoscopic revision, which demonstrated a pouch of 5 cm and outlet of 30mm. We discussed diet and lifestyle modifications for dumping syndrome. Patient states she separates eating from drinking, avoids simple sugars. We also discussed trying octreotide however patient interested in APC revision for dumping syndrome and weight management. We discussed procedure in details. She will need to see our team. She has been following with IBD clinic whom referred her to us. Work up for abdominal pain, nausea, vomiting negative. She did complete EUS without significant findings however EUS limited due to RYGB anatomy. 07/03/2023 MRI Panc/Jimbo IMPRESSION: Mild pancreatic atrophy but no cystic or solid mass, or other findings to explain diarrhea. Mild central bile duct prominence is likely postcholecystectomy change. Expected changes following Gelacio-en-Y gastric bypass. 04/21/2023 CT ABD/PEL IMPRESSION: 1. Mild colitis, likely infectious or inflammatory. 04/23/2023 Colonoscopy Findings: The perianal and digital rectal examinations were normal. A few small-mouthed diverticula were found in the sigmoid colon. The exam was otherwise without abnormality. Biopsies for histology were taken with a cold forceps from the right colon, left colon and transverse colon for evaluation of microscopic colitis. Estimated blood loss was minimal. Impression: - Diverticulosis in the sigmoid colon. - The examination was otherwise normal. - Biopsies were taken with a cold forceps from the right colon, left colon and transverse colon for evaluation of microscopic colitis. FINAL DIAGNOSIS A. Colon, biopsy: - Colonic mucosa with no significant pathologic changes. 24 hrs Diet recall: Breakfast: Protein Shake Snack: None Lunch: chicken broth Snack: Cheez it crackers Dinner: Protein Shake Snack: Cheez it crackers Wakes up to eat: No Current Exercise Activity: Going to gym 2-3x a week Weight History: Pre-LSG weightL: 310 lbs (BMI 47.1) Post LSG weight: 174 lbs (BMI 26.5) Pre-RYGB weight: 267 lbs (BMI 40.6). Post-RYGB faustina: 190 lbs (BMI 28.9). Ht 172.7 cm (5' 8 ) Wt 86.2 kg (190 lb) BMI 28.89 kg/m Goal weight BMI < 27: 162.3 Goal weight BMI < 30: 180.3 Last 5 Encounter Wt Readings: Date: Wt: 07/13/2023 86.5 kg (190 lb 9.6 oz) 06/26/2023 87.5 kg (193 lb) 06/24/2023 86.2 kg (190 lb) 04/21/2023 88.8 kg (195 lb 12.3 oz) 04/07/2023 92 kg (202 lb 13.2 oz) Risk factors: Tobacco use: No EtOH intake: No NSAIDs: No H. Pylori: No She has had SIBO in the past Relevant Medications: Creon 3 tablets TID and with snacks Phenergan Tizanidine Adderall Ozempic Vitamins/Minerals Supplements: Vit B12, MVI, calcium citrate and vit D Relevant Bariatric Procedures/Surgeries Bariatric Surgeon: Dr. Ozuna and OSH Bariatric Surgery: 07/2022 Gelacio-en-Y Gastric Bypass (RYGB) and LSG done OSH in Past Medical History: PAST MEDICAL HISTORY Diagnosis Date Breast mass 11/04/2007 Right, biopsy benign Encounter for cosmetic surgery Endometriosis Excess skin of arm Fracture , ankle Localized adiposity Morbid obesity (HCC) Ovarian cyst Thyroid disorder Past Surgical History: PAST SURGICAL HISTORY Procedure Laterality Date ASSIST ONLY x3 EGD multiple GASTRIC BYPASS HX 12/2021 conversion from gastruc sleeve LAPAROSCOPY SURG CHOLECYSTECTOMY 2005 Cholecystectomy, lap PAST SURGICAL HISTORY OF 10/28/2011 gastric sleeve PAST SURGICAL HISTORY OF 2011 excision of goiter PAST SURGICAL HISTORY OF thyroid mass removed REMOVAL STOMACH,GELACIO-EN-Y 07/29/2022 TOTAL ABDOMINAL HYSTERECT W/WO RMVL TUBE OVARY 05/01/2010-05/2011 Hysterectomy, partial uterus then completion Medications: Current Outpatient Medications Medication Sig Dispense Refill klrfnk-zblobuvq-wjshoue (CREON 6) 6,000-19,000 -30,000 unit delayed release capsule Take 3 capsules by mouth three times a day with meals. Increase to 3 tabs with meals and 2 with a snack 810 capsule 0 promethazine (PHENERGAN) 25 mg tablet Take 1 tablet by mouth every 8 hours as needed (for nausea). 40 tablet 0 iv contrast (will be provided with radiology test) MRI PANC/JIMBO Inject, intravenously, once for 1 dose. No IV access, insert saline lock prior to the beginning of sedation, infusion, injection of imaging exam. Discontinue saline lock post exam. If Pt. has a central line or IVAD, may access for administration according to line specific nursing protocol. Once exam is complete flush line and de-access according to line specific nursing protocol in the MR contrast administration guidelines link. 1 Each 0 Artificial Tear, Hypromellose, 0.3 % gel Use 1 Drop in both eyes daily at bedtime. please avoid using the contacts and see your eye doctor in next few days 10 g 0 tiZANidine (ZANAFLEX) 4 mg tablet Take 1 tablet by mouth every 8 hours as needed. loperamide (IMODIUM) 2 mg cap(s) Take 1-2 capsules by mouth three times a day as needed for diarrhea (for diarrhea> 3 times a day) for up to 15 days. 45 capsule 1 semaglutide (OZEMPIC) 0.25 mg or 0.5 mg(2 mg/1.5 mL) pen Inject 0.5 mg subcutaneously one time a week. acetaminophen (TYLENOL) 325 mg tablet Take 2 tablets by mouth every 6 hours as needed for pain. cholecalciferol (VITAMIN D3) 1,000 unit tab tablet take 1 tablet by mouth once daily . BREAK OPEN AND RELEASE UNDER TONGUE FOR BEST ABSORPTION 90 tablet 0 levothyroxine (SYNTHROID) 50 mcg tablet Take 50 mcg by mouth. cyanocobalamin, vitamin B-12, (B-12 COMPLIANCE) 1,000 mcg/mL kit 1 mL by INJECTION(UNSPECIFIED PARENTERAL ROUTES) route one time a week. ALPRAZolam (XANAX) 0.5 mg tablet Take 0.5 mg by mouth at bedtime as needed. dextroamphetamine-amphetamine (ADDERALL) 20 mg tablet Take 20 mg by mouth twice daily. No current facility-administered medications for this visit. Allergies: ALLERGIES Allergen Reactions Gabapentin Angioedema Patient reports throat swelling with gabapentin. Tramadol Hives Adhesive Tape (Serina* Rash, Swelling, Itching Nsaids (Non-Steroid* Contraindication-Medical Surgical S/p gelacio en y gastric bypass Paxil [Paroxetine] Intolerance Gi upset Scopolamine Other: See Comments Blurred vision Toradol [Ketorolac * Hives, Swelling Family History: No known colon cancer, polyps, IBD, celiac disease, pancreatic disease, or liver disease. FAMILY HISTORY Problem Relation Age of Onset COPD Mother Hypertension Mother other (hypoglycemia) Mother Emphysema Father Coronary Artery Disease Father Ischemic Heart Disease Father 58 s/p stents Hypertension Father Asthma Sister 1/2 sister with female cysts other (unkown) Sister BiPolar-Bulemia None Brother 1/2--unkown Thyroid Other 1st cousin - ? Grave's ? Social History: Social History Tobacco Use Smoking status: Never Smokeless tobacco: Never Vaping Use Vaping Use: Never used Substance Use Topics Alcohol use: Not Currently Drug use: No Comment: denies tx for drug/alcohol abuse in the past. Tobacco: Tobacco Use: Never Alcohol: Alcohol Use: Not Currently Illicits: Drug Use: No (denies tx for drug/alcohol abuse in the past.) Review of Systems: Review of Systems Constitutional: no fevers, chills, night sweats, or weight loss Cardiovascular: no chest pain Pulmonary: no shortness of breath Eyes: no visual changes or eye irritation Musculoskeletal: no myalgias or arthralgias Skin: no new or changing skin lesions, rashes or pruritis 12 point ROS otherwise negative. Physical Examination: Ht 172.7 cm (5' 8 ) Wt 86.2 kg (190 lb) BMI 28.89 kg/m Physical Exam virtual/videocall encounter: Patient reported height 5'8 and weight 190 lbs There were no vitals taken for this visit. General - Normal, healthy, cooperative, in no acute distress Able to interact verbally by video conference Psych - ORIENTATION: normal to time place, person and situation Mood/Affect: AFFECT AND MOOD: Normal Head/Neuro - Normal size and shape Facial appearance normal Pulmonary - respiratory effort normal Cardiovascular - patient describes extremities normal, warm, no cyanosis,no clubbing and no edema Abdominal - Areas of pain/tenderness: yes, abdominal pain, nausea, vomiting, diarrhea. Skin - abnormal lesions not visualized Motor - patient seen sitting with Normal appearing strength and coordination ? Laboratory Data: Lab Results Component Value Date WBC 4.86 07/13/2023 WBC 6.88 06/26/2023 WBC 6.04 06/12/2023 HCT 41.1 07/13/2023 HCT 41.0 06/26/2023 HCT 36.5 06/12/2023 PLT 269 07/13/2023 PLT 271 06/26/2023 PLT 230 06/12/2023 Lab Results Component Value Date ALB 4.2 07/13/2023 TBILI 0.4 07/13/2023 Lab Results Component Value Date INR 1.0 08/12/2022 No components found for: VITDT , 25VITD , 25OHVITAMIND Lab Results Component Value Date B12 434 06/26/2023 TSH Date Value Ref Range Status 04/09/2023 2.830 0.270 - 4.200 mIU/L Final Comment: If the patient is , TSH reference range varies by gestational period: First Trimester (weeks 9-12): 0.180-2.990 mIU/L Second Trimester: 0.110-3.980 mIU/L Third Trimester: 0.480-4.710 mIU/L Santi Dumont et al. A Practical Approach for the Verifications and Determination of Site- and Trimester-Specific Reference Intervals for Thyroid Function tests in . Thyroid, 2019:29:3:412-420. Irvin Haddad, et al. 2017 Guidelines of the [place] [employer] for the Diagnosis and Management of Thyroid Disease during and the . Thyroid, 2017:27:3:315-389. No components found for: GHBA1C , [id number] WBC (k/uL) Date Value 07/13/2023 4.86 RBC (m/uL) Date Value 07/13/2023 4.49 Hemoglobin (g/dL) Date Value 07/13/2023 13.2 Hematocrit (%) Date Value 07/13/2023 41.1 MCV (fL) Date Value 07/13/2023 91.5 MCH (pg) Date Value 07/13/2023 29.4 MCHC (g/dL) Date Value 07/13/2023 32.1 RDW-CV (%) Date Value 07/13/2023 14.1 Platelet Count (k/uL) Date Value 07/13/2023 269 MPV (fL) Date Value 07/13/2023 9.8 Potassium (mmol/L) Date Value 07/13/2023 3.8 08/18/2012 4.0 Sodium (mmol/L) Date Value 07/13/2023 141 08/18/2012 141 Magnesium (mg/dL) Date Value 07/13/2023 2.1 Creatinine (mg/dL) Date Value 07/13/2023 0.58 08/18/2012 0.56 BUN (mg/dL) Date Value 07/13/2023 11 08/18/2012 10 Glucose (mg/dL) Date Value 07/13/2023 61 08/18/2012 144 PT INR (no units) Date Value 02/25/2007 0.9 The INR value should be used only for patients who have been on stable oral anticoagulation for several weeks. The recommended range for standard oral anticoagulant therapy is 2.0 - 3.0. The range for high dose therapy for high risk systemic embolization is 2.5 - 3.5. INR (no units) Date Value 08/12/2022 1.0 TSH Date Value 04/09/2023 2.830 mIU/L 08/20/2016 0.709 uU/mL NT Pro BNP (pg/mL) Date Value 06/16/2022 225 Glucose (mg/dL) Date Value 07/13/2023 61 (L) BUN (mg/dL) Date Value 07/13/2023 11 Creatinine (mg/dL) Date Value 07/13/2023 0.58 Sodium (mmol/L) Date Value 07/13/2023 141 Potassium (mmol/L) Date Value 07/13/2023 3.8 Chloride (mmol/L) Date Value 07/13/2023 104 CO2 (mmol/L) Date Value 07/13/2023 26 Protein, Total (g/dL) Date Value 07/13/2023 6.8 Albumin (g/dL) Date Value 07/13/2023 4.2 Calcium, Total (mg/dL) Date Value 07/13/2023 9.2 Alkaline Phosphatase (U/L) Date Value 07/13/2023 129 (H) Bilirubin, Total (mg/dL) Date Value 07/13/2023 0.4 AST (U/L) Date Value 07/13/2023 30 ALT (U/L) Date Value 07/13/2023 42 (H) Glucose (mg/dL) Date Value 07/13/2023 61 08/18/2012 144 Creatinine (mg/dL) Date Value 07/13/2023 0.58 08/18/2012 0.56 Potassium (mmol/L) Date Value 07/13/2023 3.8 08/18/2012 4.0 AST (U/L) Date Value 07/13/2023 30 08/18/2012 25 ALT (U/L) Date Value 07/13/2023 42 08/18/2012 30 Hemoglobin A1C (%) Date Value 09/06/2013 5.4 ] No results found for: LDL , TG , UALBCR ] Imagin07/03/2023 MRI Panc/Jimbo IMPRESSION: Mild pancreatic atrophy but no cystic or solid mass, or other findings to explain diarrhea. Mild central bile duct prominence is likely postcholecystectomy change. Expected changes following Gelacio-en-Y gastric bypass. 04/21/2023 CT ABD/PEL IMPRESSION: 1. Mild colitis, likely infectious or inflammatory. Endoscopy: 06/26/2023 EGD/EUS Findings: The examined esophagus was normal. The Z line was regular at 38 cm from incisors. The GE junction and hiatus were at 38 cm from incisors. Evidence of a Gelacio-en-Y gastric bypass (RYGB) was found. The gastrojejunal anastomosis (GJA) was characterized by normal appearing mucosa. No ulcers, erosion, sutures or jj. The GJA outlet was dilated 30 mm diameter and was traversed. The gastric pouch extended from 38 cm to 42 cm from the incisors. No gastro-gastric fistula was found. The jejunum was normal at 60 cm (both Gelacio/alimentary and blind limbs). No food or debris in the blind limb. LIMITED EUS EXAM DUE TO GASTRIC BYPASS ANATOMY (ENDOSONOGRAPHIC FINDING): : There was no sign of significant endosonographic abnormality in the pancreatic body and pancreatic tail. The pancreatic duct measured up to 2 mm in the body and <1mm in the tail in diameter. Only the body and tail of the pancreas was well visualized, no masses, no cysts, no calcifications, the pancreatic duct was well visualized from body to tail, the pancreatic duct was thin in caliber, the pancreatic duct was regular in contour. The head of the pancreas and ampulla could not be visualized due to gelacio-en-y gastric bypass anatomy. The region of the celiac plexus and celiac ganglia was visualized and showed no sign of significant endosonographic abnormality. The vascular anatomy of the region was normal. Impression: - There was no sign of significant pathology in the pancreatic body and pancreatic tail. - The head of the pancreas and ampulla could not be visualized due to gelacio-en-y gastric bypass anatomy. 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 No ulcers, fistulas or stenosis. - Normal esophagus. No hiatal hernia. No esophagitis. - Normal jejunum. - No specimens collected. Estimated Blood Loss: Estimated blood loss: none. Assessment and Recommendations: ??47 year old female with history as per HPI, overweight s/p RYGB, history of jarred ulcer, marginal ulcer, c diff colitis, nausea, vomiting, intercostal neuralgia, breast mass, neck mass, hypothyroid, COREEN, ADHD, pelvic abscess, presenting to GI/Bariatric Endoscopy clinic for evaluation of complications of bariatric surgery s/p RYGB c/b epigastric pain referred by IBD clinic for dumping syndrome. Patients quality of life affected by symptoms of diarrhea which started 4 months ago. IBD workup without significant findings of symptoms. We discussed diet and lifestyle modifications for dumping syndrome, as well as octreotide which patient is not interested in starting at this time. Patient is on ozempic she held in past to see if this would improve symptoms however she restarted as she had no symptom improvement when holding ozempic. Recommend stopping ozempic as this can cause abdominal pain, nausea, vomiting, diarrhea. She is interested in APC. We discussed procedure in detail and patient will need to schedule follow up with our team dietitian and psychologist. Recommendations: - Eat smaller meals more frequently. - Aim for six small meals instead of three. - Eat slowly and chew thoroughly. - Avoid simple sugars, carbohydrates and milk products. This will prevent rapid blood sugar shifts. Complex carbs, such as whole grains, are better (see below). - Eat more protein and healthy fats to replace carbohydrates in your diet. Fats slow down digestion and provide a steadier form of energy. - Eat more dietary fiber to add bulk to your meal and slow down its transit time. Fiber slows down sugar absorption in your digestive system. - Lie down on your back for 30 minutes after eating. This may slow down gastric emptying and help maintain blood pressure during digestion. - Don t drink fluids within 30 minutes before or after eating. Fluids encourage motility. - Continue diet and lifestyle modifications - Schedule appt with our GI bariatric endoscopy dietitian, Sofie Perales RD - Schedule appt with our GI bariatric endoscopy psych, Dr. Barron - Increase physical activity aim for 200 mins of cardio and strength training exercises weekly - RTC in 6-8 weeks for follow up of medically supervised weight management program VIRTUAL VISIT I spent a total of 30 minutes during this real-time, interactive virtual clinical encounter, which was conducted virtually using HIPAA compliant videoconferencing technology. Greater than 50% of the time spent was devoted to counseling and coordinating care including review of records, pertinent lab data and studies, as well as discussing diagnostic evaluation and work up, planned therapeutic interventions and future disposition of care. This includes any additional research needed to obtain further information in formulating the plan of care of this patient. This includes counseling the patient about her disease and diagnosis, specifically: complications of bariatric surgery We reviewed coronavirus precautions including avoiding public places, maintaining 6 feet of distance from other persons when in public, no sick contacts, and fastidious handwashing. Thank you for allowing me to participate in the care of your patient. If you have any questions or concerns, please feel free to contact me. Nhi Hinojosa APRN.[facility] GI Bariatric Endoscopy 07/14/2023 3:44 PM documented in this encounter [facility] 07-13-[address] [facility] 07-13-[address] [facility] 07-13-2023 History of Present illness Narrative [facility] Nutrition Assessment Intake: Appetite is poor, trying to eat soups, eggs, chicken broth; feels hungry, however feels so nauseated that she can't eat (promethezine was helping however decreased efficacy recently; zofran no longer working); has emesis 2-3 times daily; gets abdominal swelling with all PO intake. This is not nutritionally adequate, however recently started drinking protein shakes daily. Patient drinks 2.2 liters of fluid daily. Diet Recall: Cottage cheese, scrambeled eggs, cream of wheat, toast/crackers Can keep down more carb based foods Beverages: smart water with liquid IV (32 oz), pedialyte (8 oz), protein drink (12 oz fairlife) watered down with ice, chamomile tea with lemon/honey (16 oz), water (8 oz) Output: Urine output is described as dark yellow in colour; reports voiding every time she has a BM; has headaches daily; will get lightheaded/sweaty with fevers on occasion; has 3 UTI in last couple months per patient report. Patient has had 2-5 BM in April, however this has increased recently to 10-15 bowel movements daily; watery in consistency. Has accidents at night (2 in the last 2 weeks) and is woken up 2x daily during the night for BM's. Relation to food/ fluid 1-2 hours; not immediate. Anthropometrics: Height: 5' 8 (1.72 m) Weight: 86 kg (07/13/23); 86.2kg (06/24/23) 88.8kg (04/22/23), 93.4kg (09/28/22), 92.8kg (08/29/22) Usual weight: 86 kg; has been 190 lbs for awhile Goal weight: 86 kg Body Mass Index (BMI) 28.98 kg/m^2- overweight Weight has decreased by 7.5 kg over 10 months representing 7% weight change - nonsignificant Estimated Daily Nutritional Needs: 1720 - 2150 kcals/day = 20 - 25 kcals/kg dosing weight 86 - 129 g protein/day = 1.0-1.5 g/kg dosing weight Nutrition Focused Physical Exam: Subcutaneous Fat Loss: Orbital: Mild Triceps: Mild Mid-axillary at the iliac crest: Unable to determine at this time Muscle Loss Locations: Temporalis: Mild Pectoralis: Moderate Deltoids: Mild Interosseous: No muscle loss Latissimus dorsi, trapezius: No muscle loss Quadriceps: No muscle loss Gastrocnemius: No muscle loss Ascites: No Edema: No Functional status: Rarely out of bed; feels like she sleeps all day, no energy to drive/do ADL's Potential Signs of Inflammation: no identifiable sources Potential micronutrient deficiency revealed in No deficiency identified ASSESSMENT OF MALNUTRITION: MODERATE PROTEIN-CALORIE MALNUTRITION In the context of Chronic Illness or Injury based on: Subcutaneous Fat Loss: Mild Loss Muscle Loss Moderate Loss Tracy Sosa, MS, RD, LD, CNSC, CCTD [facility] documented in this encounter [facility] 07-13-2023 Instructions Hamlet Zafar MD - 07/13/2023 10:49 AM EDT Dear Melina It was a pleasure to meet you today. I was notified that you were getting your AXR at another imaging facility, I have had my nurse coordinator fax the order over, please let me know if there are issues and I will send a repeat My Chart message with the results As we discussed I have sent a script for high doses of creon to your pharmacy, you can take 1 tab with meals of the higher concentration. I have also sent a letter to your PCP about the Ozempic, but please reach out to them as well to discuss stopping it. Dr. Andrade who did your EGD has recommended a follow up. Please call the number below: Follow up with Dr. Andrade or Nhi Hinojosa CNP in 4-6 weeks in GI/Bariatric Endoscopy clinic. Please call for appointments [phone] or [phone]. We will be in touch for a repeat appointment in a short period of time to discuss the next steps, but I am hoping with the creon and stopping the ozempic you will be feeling better Please do not hesitate to reach out Hamlet Zafar MD, MSc, FR, CNSC Associate Staff, Department of Gastroenterology, Hepatology & Nutrition [facility] documented in this encounter [facility] 07-13-2023 History of Present illness Narrative [facility] NAME: Melina Díaz AGE: [age] year old : PHONE: [phone] (home) [phone] (cell) Referring MD: No referring provider defined for this encounter. PCP: Sean Ruiz, DO Initial Visit This is a 47 year old female with a h/o sleeve gastrectomy with conversion to gastric bypass, who recently underwent revision of gastrojejunostomy. She continues with a physiology of diarrhea/malabsorption since 04/2023. She has been referred to the CG[facility] from Dr Maged Goddard ([facility]) for management of diarrhea/malabsorption. She follows with GI (Dr Goddard) and outpatient nutrition therapy and has been worked up with stool studies; notable low panc elastase (61 ug/g on 04/21/2023). Today, patient reports mid abdominal pain which has worsened over the past several weeks, increased nausea previously controlled with promethazine; also with blurry vision and sweating. Last Intestinal Surgery: 07/29/2022: Lap revision of gastrojejunostomy; additional SBR (-6 cm) ([facility] Dr Ozuna). R robotic assisted vagotomy ([facility] Dr Griffin) 12/2021: Conversion to gastric bypass ([facility]); never able to get passed pureed stage of diet 2011: Gastric Sleeve Anatomy: Per Surgical history, she has gastric pouch to jejunum/small bowel to colon, +rectum/anus Co-morbidities: Chronic pain; mid-abdomen radiating to back; on oxy which helps Home PN 2021 prior to stomach surgery (PN for ~2 months) ED visits for [facility] ([facility]; [facility] [place]) Anxiety H/o pancreatitis Intake: Appetite is poor, trying to eat soups, eggs, chicken broth; feels hungry, however feels so nauseated that she can't eat (promethezine was helping however decreased efficacy recently; zofran no longer working); has emesis 2-3 times daily; gets abdominal swelling with all PO intake. This is not nutritionally adequate, however recently started drinking protein shakes daily. Patient drinks 2.2 liters of fluid daily. Diet Recall: Cottage cheese, scrambeled eggs, cream of wheat, toast/crackers Can keep down more carb based foods Beverages: smart water with liquid IV (32 oz), pedialyte (8 oz), protein drink (12 oz [employer] Firstlife) watered down with ice, chamomile tea with lemon/honey (16 oz), water (8 oz) Output: Urine output is described as dark yellow in colour; reports voiding every time she has a BM; has headaches daily; will get lightheaded/sweaty with fevers on occasion; has 3 UTI in last couple months per patient report. Patient has had 2-5 BM in April, however this has increased recently to 10-15 bowel movements daily; watery in consistency. Has accidents at night (2 in the last 2 weeks) and is woken up 2x daily during the night for BM's. Relation to food/ fluid 1-2 hours; not immediate. Laboratory: Component Latest Ref Rng & Units 06/11/2023 06/26/2023 WBC 3.70 - 11.00 k/uL 6.88 RBC 3.90 - 5.20 m/uL 4.52 Hemoglobin 11.5 - 15.5 g/dL 13.1 Hematocrit 36.0 - 46.0 % 41.0 MCV 80.0 - 100.0 fL 90.7 MCH 26.0 - 34.0 pg 29.0 MCHC 30.5 - 36.0 g/dL 32.0 RDW-CV 11.5 - 15.0 % 13.9 Platelet Count 150 - 400 k/uL 271 MPV 9.0 - 12.7 fL 9.6 Neut% % 56.0 Abs Neut (ANC) 1.45 - 7.50 k/uL 3.86 Lymph% % 33.9 Abs Lymph 1.00 - 4.00 k/uL 2.33 Chilton% % 7.4 Abs Chilton <0.87 k/uL 0.51 Eosin% % 1.2 Abs Eosin <0.46 k/uL 0.08 Baso% % 1.2 Abs Baso <0.11 k/uL 0.08 Immature Gran % % 0.3 IMMATURE GRANS (ABS) <0.10 k/uL <0.03 NRBC /100 WBC 0.0 Absolute nRBC <0.01 k/uL <0.01 DTYPE Auto Protein, Total 6.3 - 8.0 g/dL 6.9 Albumin 3.9 - 4.9 g/dL 4.5 Calcium 8.5 - 10.2 mg/dL 9.5 Bilirubin, Total 0.2 - 1.3 mg/dL 0.3 Alkaline Phosphatase 34 - 123 U/L 133 (H) AST 13 - 35 U/L 26 ALT 7 - 38 U/L 37 Glucose 74 - 99 mg/dL 81 BUN 7 - 21 mg/dL 10 Creatinine 0.58 - 0.96 mg/dL 0.59 Sodium 136 - 144 mmol/L 140 Potassium 3.7 - 5.1 mmol/L 4.3 Chloride 97 - 105 mmol/L 106 (H) CO2 22 - 30 mmol/L 24 Anion Gap 9 - 18 mmol/L 10 eGFR >=60 mL/min/1.73m 113 Phosphorus 2.7 - 4.8 mg/dL 3.7 Component Latest Ref Rng & Units 04/02/2023 06/26/2023 Iron 41 - 186 ug/dL 86 109 TIBC 232 - 386 ug/dL 322 364 Transferrin Saturation 15.0 - 57.0 % 26.7 29.9 Folate >4.7 ng/mL 7.7 Ferritin 14.7 - 205.1 ng/mL 271.0 (H) 349.0 (H) Component Latest Ref Rng & Units 04/02/2023 06/26/2023 Vitamin D 25 Hydroxy 31.0 - 80.0 ng/mL 23.6 (L) 19.6 (L) Vitamin B12 232 - 1,245 pg/mL 487 434 Vitamin B1 (TDP), Whole Blood 84.3 - 213.3 nmol/L 152.8 Component Latest Ref Rng & Units 04/11/2023 06/11/2023 Lipase 16 - 61 U/L 8 (L) 12 (L) Medications: Current Outpatient Medications Medication Sig otlihp-hydbadtg-fqwbcld (CREON 6) 6,000-19,000 -30,000 unit delayed release capsule Take 3 capsules by mouth three times a day with meals. Increase to 3 tabs with meals and 2 with a snack promethazine (PHENERGAN) 25 mg tablet Take 1 tablet by mouth every 8 hours as needed (for nausea). tiZANidine (ZANAFLEX) 4 mg tablet Take 1 tablet by mouth every 8 hours as needed. semaglutide (OZEMPIC) 0.25 mg or 0.5 mg(2 mg/1.5 mL) pen Inject 0.5 mg subcutaneously one time a week. cholecalciferol (VITAMIN D3) 1,000 unit tab tablet take 1 tablet by mouth once daily . BREAK OPEN AND RELEASE UNDER TONGUE FOR BEST ABSORPTION levothyroxine (SYNTHROID) 50 mcg tablet Take 50 mcg by mouth. cyanocobalamin, vitamin B-12, (B-12 COMPLIANCE) 1,000 mcg/mL kit 1 mL by INJECTION(UNSPECIFIED PARENTERAL ROUTES) route one time a week. ALPRAZolam (XANAX) 0.5 mg tablet Take 0.5 mg by mouth at bedtime as needed. dextroamphetamine-amphetamine (ADDERALL) 20 mg tablet Take 20 mg by mouth twice daily. iv contrast (will be provided with radiology test) MRI PANC/JIMBO Inject, intravenously, once for 1 dose. No IV access, insert saline lock prior to the beginning of sedation, infusion, injection of imaging exam. Discontinue saline lock post exam. If Pt. has a central line or IVAD, may access for administration according to line specific nursing protocol. Once exam is complete flush line and de-access according to line specific nursing protocol in the MR contrast administration guidelines link. Artificial Tear, Hypromellose, 0.3 % gel Use 1 Drop in both eyes daily at bedtime. please avoid using the contacts and see your eye doctor in next few days loperamide (IMODIUM) 2 mg cap(s) Take 1-2 capsules by mouth three times a day as needed for diarrhea (for diarrhea> 3 times a day) for up to 15 days. acetaminophen (TYLENOL) 325 mg tablet Take 2 tablets by mouth every 6 hours as needed for pain. No current facility-administered medications for this visit. Procedures/Imagin MRI Panc/Jimbo: Mild pancreatic atrophy but no cystic or solid mass, or other findings to explain diarrhea. Mild central bile duct prominence is likely postcholecystectomy change. Expected changes following Gelacio-en-Y gastric bypass 04/23/2023 Biopsy Colon: no significant pathologic changes 04/10/2023 Biopsy Colon: no pathologic diagnostic abnormality; negative for dysplasia or malignancy 04/09/2023 Biopsy Small Intestine: no diagnostic alteration; no evidence of celiac disease 04/09/2023 Biopsy Stomach: Oxyntic mucosa with chronic inactive gastritis; negative for Helicobacter pylori Stool Studies: Component Latest Ref Rng & Units 03/27/2023 04/03/2023 04/08/2023 04/21/2023 06/12/2023 Total Weight, Feces g 470 10 Collection Period (FECFAT) h Random Random Fat Quant, Feces DNR DNR Fat %, Feces <20 % fat 29 (H) 48 (H) Shigella spp./Enteroinvasive E.coli DNA Not Detected Not detected Not detected Campylobacter jejuni/coli DNA Not Detected Not detected Not detected Shiga toxin-producing gene(s) Not Detected Not detected Not detected Salmonella spp. DNA Not Detected Not detected Not detected Cryptosporidium Antigen by EIA Negative Negative for Cryptosporidium by EIA. Negative for Cryptosporidium by EIA. Giardia Antigen by EIA Negative Negative for Giardia lamblia by EIA. Negative for Giardia lamblia by EIA. C. difficile PCR Negative for C. difficile toxin by PCR Negative for C. difficile toxin by PCR Negative for C. difficile toxin by PCR Negative for C. difficile toxin by PCR Ova and Parasite Exam No Parasites Seen Occult Blood Exam Screen Negative Negative Panc Elastase, Fecal >=100 ug/g 61 (L) Prior response to CGRT therapy: ORS: liquid IV, pedialyte; does not feel hydrated Benefiber: takes benefibre in morning; does not feel like it helps Imodium: up to 10 pills daily; did not help Lomotil: tried; did not help Codeine: has tried; did not help Tincture of Opium: has tried; did not help Pancreatic Enzymes: Creon did not help; 3 tabs with meals Probiotics: OTC daily; can't remember brand Antimicrobials: cipro, xifaxin for SIBO; helped with gas/burping/bloating Antisecretory: PPI capsules (opened), carafate - for mild chronic inflammation Bile acid binding resin: cholestyramine made diarrhea worse Growth Hormone: N/A GLP2: N/A ALLERGIES Allergen Reactions Gabapentin Angioedema Patient reports throat swelling with gabapentin. Tramadol Hives Adhesive Tape (Serina* Rash, Swelling, Itching Nsaids (Non-Steroid* Contraindication-Medical Surgical S/p gelacio en y gastric bypass Paxil [Paroxetine] Intolerance Gi upset Scopolamine Other: See Comments Blurred vision Toradol [Ketorolac * Hives, Swelling I have reviewed allergies and medications. PAST MEDICAL HISTORY Diagnosis Date Breast mass 11/04/2007 Right, biopsy benign Encounter for cosmetic surgery Endometriosis Excess skin of arm Fracture , ankle Localized adiposity Morbid obesity (HCC) Ovarian cyst Thyroid disorder PAST SURGICAL HISTORY Procedure Laterality Date ASSIST ONLY x3 EGD multiple GASTRIC BYPASS HX 12/2021 conversion from gastruc sleeve LAPAROSCOPY SURG CHOLECYSTECTOMY 2005 Cholecystectomy, lap PAST SURGICAL HISTORY OF 10/28/2011 gastric sleeve PAST SURGICAL HISTORY OF 2011 excision of goiter PAST SURGICAL HISTORY OF thyroid mass removed REMOVAL STOMACH,GELACIO-EN-Y 07/29/2022 TOTAL ABDOMINAL HYSTERECT W/WO RMVL TUBE OVARY 05/01/2010-05/2011 Hysterectomy, partial uterus then completion Anthropometrics: Height: 5' 8 (1.72 m) Weight: 86 kg (07/13/23); 86.2kg (06/24/23) 88.8kg (04/22/23), 93.4kg (09/28/22), 92.8kg (08/29/22) Usual weight: 86 kg; has been 190 lbs for awhile Goal weight: 86 kg Body Mass Index (BMI) 28.98 kg/m^2- overweight Weight has decreased by 7.5 kg over 10 months representing 7% weight change - nonsignificant Estimated Daily Nutritional Needs: 1720 - 2150 kcals/day = 20 - 25 kcals/kg dosing weight 86 - 129 g protein/day = 1.0-1.5 g/kg dosing weight Nutrition Focused Physical Exam: Subcutaneous Fat Loss: Orbital: Mild Triceps: Mild Mid-axillary at the iliac crest: Unable to determine at this time Muscle Loss Locations: Temporalis: Mild Pectoralis: Moderate Deltoids: Mild Interosseous: No muscle loss Latissimus dorsi, trapezius: No muscle loss Quadriceps: No muscle loss Gastrocnemius: No muscle loss Ascites: No Edema: No Functional status: Rarely out of bed; feels like she sleeps all day, no energy to drive/do ADL's Potential Signs of Inflammation: no identifiable sources Potential micronutrient deficiency revealed in No deficiency identified ASSESSMENT OF MALNUTRITION: MODERATE PROTEIN-CALORIE MALNUTRITION In the context of Chronic Illness or Injury based on: Subcutaneous Fat Loss: Mild Loss Muscle Loss Moderate Loss Overall Assessment: Multiple bariatric surgeries H/o C difficile colitis Vitamin D deficiency Diarrhea/malabsorption CGRT Recommendations: Diet: Hi salt, Hi starch, and Low simple sugar food choices with multiple small meals; sip fluids between meals Oral Rehydration Solution (ORS): 2 liters ORS sipped between meals; limit non-ORS beverages Supplemental Fiber: Continue one serving soluble fibre daily Liquid Supplements: Continue 1-2 low sugar ONS daily PN: Not at present; will continue to monitor need to start Vitamin & Mineral Supplements: - Continue bariatric vitamin daily - Increase Vitamin D to 50,000 international unit(s) once weekly; will need to discuss at follow up phone call - Continue Vitamin B12 1000 mcg injection once monthly Probiotics: Continue OTC daily probiotic Antidiarrheals: TBD after all other testing Pancreatic enzyme replacement: Increase Creon dosage to Creon 24, take 3 tablets with meals and 2 tablets with snacks Other: Celiac panel today; order in [facility] Other: Abdominal Xray today to r/o overflow diarrhea; if full of stool, will need cleanout (miralax vs golytly) and treatment for constipation Other: Rectal manometry Other: Stop Ozempic Labs: CMP, CBC, Mg, PO4, CRP, Copper, Zinc, MMA, Vitamin B6, E and A today. Order in [facility]. Patient Group: [facility] Follow Up: Return to clinic in 3-4 weeks with DIONNE and Dr Zafar. Tracy Sosa, MS, RD, LD, CNSC, CCTD [facility] STAFF PHYSICIAN NOTE OF PERSONAL INVOLVEMENT IN CARE SMALL BOWEL DISEASES AND NUTRITION NEW ENCOUNTER Date of direct communication: 07/13/23 I have reviewed the progress note obtained and documented by the Nutrition Clinician Tracy Sosa RD. I have explored in detail with the patient the HPI and ROS, and they are summarized below. I have discussed the case and management of the patient's care with the Nutrition Clinician. I agree with the recommendations as outlined by clinician above. I have reviewed available labs, and my exam and A/P are as follows: Assessment IMPRESSION: Melina Díaz is a 47 year old female with history of Gastric sleeve (2011) with conversion to Gastric bypass (2021) with lap revision of gastrojejunostomy with ongoing issues with diarrhea, nausea and vomiting. Also history of hypothyroidism, ADHD, Vitamin D deficiency and pre diabetes. Seen in clinic for recommendations for bowel symptoms and nutritional status Melina Díaz had the opportunity to have all their concerns and questions addressed DIAGNOSTIC ISSUES AND PLAN: #) Nutritional Status Mild Malnutrition Discussed today that she does manage some oral intake, her weight has been stable and discussed that at this time ways to maximize oral intake including multiple small meals; sip fluids between meals and suggest ORS, and trial of Oral nutrition supplementation Would not suggest TPN at this time, may benefit from a trial of EN in the future, however will reassess nutritional status in short follow up. Will also screen for fat soluble vitamins and other micronutrients, suggest to continue with vitamin D supplementation #) Chronic nausea/vomiting Diarrhea due to malabsorption Pancreatic insuffiencey with mild atrophy on MRI Discussed today that her symptoms could be attributed to various etiologies. Concerning that she had no benefit from adequately dosed and timing of antidiarrheals (Lomotil/Imodium). She did have mildly low pancreatic insuffiencey with fecal elastase level, will trial increasing creon dose to see if has an effect. Importantly she is on Ozempic, discussed that this medication can lead to nausea, diarrhea and abdominal pain. She would benefit from stopping this medication, especially if she has concern with her weight loss and nutritional status. Discussed that she may have an aspect of overflow diarrhea, will obtain an AXR to assess for fecal loading. #) Fecal incontinence Will obtain anal recto manometry to assess for pelvic floor dysfunction #) Post bariatric surgery She mentioned that Dr. Nunn mentioned her pouch is dilated and may benefit from endoscopic revision, suggest she contacts his office for FU Overall discussed that her symptoms are driving her lack of oral intake and weight loss, providing PN at this time will not address her symptomatology and she has room to optimize her oral intake while we investigate. FOLLOW-UP: 3-4 weeks time with CGRT team Hamlet Zafar MD, MSc, [facility], [facility] Associate Staff, Department of Gastroenterology, Hepatology & Nutrition [facility] [place] [facility] 07/13/23 REFERRING PROVIDER: Maged Goddard [facility]0 Daryl Cutler [facility] [id number] REASON FOR REFERRAL: Diarrhea and abdominal pain, chronic nausea. My final recommendations will be communicated back to the requesting physician by way of shared Medical record or letter to requesting physician via US mail. HISTORY: Melina Díaz is a 47 year old female with history of Gastric sleeve (2011) with conversion to Gastric bypass (2021) with lap revision of gastrojejunostomy with ongoing issues with diarrhea, nausea and vomiting. Also history of hypothyroidism, ADHD, Vitamin D deficiency and pre diabetes. Seen in clinic for recommendations for bowel symptoms and nutritional status She states she has not felt well since Apr 2023. She was on ozempic this year, stopped in the spring due to nausea but resumed in the summertime, no changes in dosing of that or other medications. She has chronic nausea, tries Zofran and promethazine but not as effective (will take before meals). has some gas/burping, no dysphasia. No issues with GERD She has chronic epigastric and Left flank pain that radiates to the back, she had a fecal elastase that was low and started on small dose of creon with no effect, increased to 3 tabs with meals. She did have an MRI and EUS taht showed mild atrophy but no other changes with Chronic pancreatitis She has chronic diarrhea, goes around 10-15 times a day and consistently coleen water. She has intermittent bloating and no blood in the stools. She has tried imodium/lomotil/codeine at regular dosing that has not helped the bowels at all, she has nocturnal BMS 2-3 times a night. Colonoscopy was negative for Microscopic colitis and endoscopically was normal. She has low energy due to symptoms and weight loss (around 10 lbs in 6 months) C section x3 No urinary in contence. Has some accident fecal incontinence, couple of times a week, has a lot of urgency, and each time is large volume. No decrease sensation around anal canal. CURRENT NUTRITION SUPPORT: Oral intake - sticks to mainly pureed and soups. Recently started to drink protein drinks Patient drinks 2.2 liters of fluid daily Weight history:Last 10 Encounter Wt Readings: Date: Wt: 06/26/2023 87.5 kg (193 lb) 06/24/2023 86.2 kg (190 lb) 04/21/2023 88.8 kg (195 lb 12.3 oz) 04/07/2023 92 kg (202 lb 13.2 oz) 09/28/2022 93.4 kg (206 lb) 09/15/2022 93.4 kg (206 lb) 08/29/2022 93 kg (205 lb) 08/27/2022 92.5 kg (204 lb) 08/21/2022 93.4 kg (206 lb) 08/11/2022 93.4 kg (206 lb) Current Outpatient Medications Medication Sig pvmvzd-rlmroady-wwdfpka (CREON 6) 6,000-19,000 -30,000 unit delayed release capsule Take 3 capsules by mouth three times a day with meals. Increase to 3 tabs with meals and 2 with a snack promethazine (PHENERGAN) 25 mg tablet Take 1 tablet by mouth every 8 hours as needed (for nausea). tiZANidine (ZANAFLEX) 4 mg tablet Take 1 tablet by mouth every 8 hours as needed. semaglutide (OZEMPIC) 0.25 mg or 0.5 mg(2 mg/1.5 mL) pen Inject 0.5 mg subcutaneously one time a week. cholecalciferol (VITAMIN D3) 1,000 unit tab tablet take 1 tablet by mouth once daily . BREAK OPEN AND RELEASE UNDER TONGUE FOR BEST ABSORPTION levothyroxine (SYNTHROID) 50 mcg tablet Take 50 mcg by mouth. cyanocobalamin, vitamin B-12, (B-12 COMPLIANCE) 1,000 mcg/mL kit 1 mL by INJECTION(UNSPECIFIED PARENTERAL ROUTES) route one time a week. ALPRAZolam (XANAX) 0.5 mg tablet Take 0.5 mg by mouth at bedtime as needed. dextroamphetamine-amphetamine (ADDERALL) 20 mg tablet Take 20 mg by mouth twice daily. iv contrast (will be provided with radiology test) MRI PANC/JIMBO Inject, intravenously, once for 1 dose. No IV access, insert saline lock prior to the beginning of sedation, infusion, injection of imaging exam. Discontinue saline lock post exam. If Pt. has a central line or IVAD, may access for administration according to line specific nursing protocol. Once exam is complete flush line and de-access according to line specific nursing protocol in the MR contrast administration guidelines link. Artificial Tear, Hypromellose, 0.3 % gel Use 1 Drop in both eyes daily at bedtime. please avoid using the contacts and see your eye doctor in next few days loperamide (IMODIUM) 2 mg cap(s) Take 1-2 capsules by mouth three times a day as needed for diarrhea (for diarrhea> 3 times a day) for up to 15 days. acetaminophen (TYLENOL) 325 mg tablet Take 2 tablets by mouth every 6 hours as needed for pain. No current facility-administered medications for this visit. ALLERGIES Allergen Reactions Gabapentin Angioedema Patient reports throat swelling with gabapentin. Tramadol Hives Adhesive Tape (Serina* Rash, Swelling, Itching Nsaids (Non-Steroid* Contraindication-Medical Surgical S/p gelacio en y gastric bypass Paxil [Paroxetine] Intolerance Gi upset Scopolamine Other: See Comments Blurred vision Toradol [Ketorolac * Hives, Swelling PAST MEDICAL HISTORY Diagnosis Date Breast mass 11/04/2007 Right, biopsy benign Encounter for cosmetic surgery Endometriosis Excess skin of arm Fracture , ankle Localized adiposity Morbid obesity (HCC) Ovarian cyst Thyroid disorder PAST SURGICAL HISTORY Procedure Laterality Date ASSIST ONLY x3 EGD multiple GASTRIC BYPASS HX 12/2021 conversion from gastruc sleeve LAPAROSCOPY SURG CHOLECYSTECTOMY 2004 Cholecystectomy, lap PAST SURGICAL HISTORY OF 10/28/2011 gastric sleeve PAST SURGICAL HISTORY OF 2011 excision of goiter PAST SURGICAL HISTORY OF thyroid mass removed REMOVAL STOMACH,GELACIO-EN-Y 07/29/2022 TOTAL ABDOMINAL HYSTERECT W/WO RMVL TUBE OVARY 05/01/2010-05/2011 Hysterectomy, partial uterus then completion Social History Tobacco Use Smoking status: Never Smokeless tobacco: Never Vaping Use Vaping Use: Never used Substance Use Topics Alcohol use: Not Currently Drug use: No Comment: denies tx for drug/alcohol abuse in the past. FAMILY HISTORY Problem Relation Age of Onset COPD Mother Hypertension Mother other (hypoglycemia) Mother Emphysema Father Coronary Artery Disease Father Ischemic Heart Disease Father 58 s/p stents Hypertension Father Asthma Sister 1/2 sister with female cysts other (unkown) Sister BiPolar-Bulemia None Brother 1/2--unkown Thyroid Other 1st cousin - ? Grave's REVIEW OF SYSTEMS: Complete ROS performed and negative outside of the systems documented in the HPI. INVESTIGATIONS: All available pertinent interval investigations were reviewed and were notable for: ENDOSCOPY/PATHOLOGY: EGD/EUS 06/26/23 Impression: - There was no sign of significant pathology in the pancreatic body and pancreatic tail. - The head of the pancreas and ampulla could not be visualized due to gelacio-en-y gastric bypass anatomy. 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 No ulcers, fistulas or stenosis. - Normal esophagus. No hiatal hernia. No esophagitis. - Normal jejunum. - No specimens collected. 04/23/2023 Colonoscopy Impression: - Diverticulosis in the sigmoid colon. - The examination was otherwise normal. - Biopsies were taken with a cold forceps from the right colon, left colon and transverse colon for evaluation of microscopic colitis. Biopsy Colon: no significant pathologic changes 04/10/2023 Biopsy Colon: no pathologic diagnostic abnormality; negative for dysplasia or malignancy 04/09/2023 Biopsy Small Intestine: no diagnostic alteration; no evidence of celiac disease 04/09/2023 Biopsy Stomach: Oxyntic mucosa with chronic inactive gastritis; negative for Helicobacter pylori IMAGIN MRI Panc/Jimbo: Mild pancreatic atrophy but no cystic or solid mass, or other findings to explain diarrhea. Mild central bile duct prominence is likely postcholecystectomy change. Expected changes following Gelacio-en-Y gastric bypass LAB WORK: See above No celiac screen (path negative) PHYSICAL EXAM: BP 118/64 (BP Site: Left Arm, BP Position: Sitting, BP Cuff Size: Regular Adult) Pulse 68 Temp 36.9 C (98.4 F) (Temporal) Ht 172.7 cm (5' 8 ) Wt 86.5 kg (190 lb 9.6 oz) SpO2 100% BMI 28.98 kg/m Body mass index is 28.98 kg/m . Constitutional: Healthy and resting comfortably, tearful HEENT: No icterus. Moist mucus membranes Neck: JVP non-distended. No masses, Good dentition, no mouth sores. Cardiovascular: PPP Normal HR. Normal S1/S2 Respiratory: Normal respiratory effort. Clear to bases Abdomen: abdomen shows prior surgical scars, diffuse tenderness over the LLQ,LUQ and epigastric area, no rebound tenderness, appreciated Left flank pain as well Extremities: Edema none. Muscle mass mild loss. preserved subQ fat reserves. Neurologic: Awake and alert. Total time of this patient encounter today was >65 mins, including: preparation for visit, direct time with the patient, examination, orders, review of records, and documentation. documented in this encounter [facility] 07-08-2023 Miscellaneous Notes Called pt and left a VM message that our office is cancelling her appointment with July Saha PA-C for 07/10/23 @ 8:30am. Pt needs to follow up with Dr. Womack and Dr. Zafar for the TPN 07/13/23. Office number left if pt has any questions/concerns. Ninoska Hebert RN July 08, 2023 11:28 AM documented in this encounter [facility] 07-03-2023 Miscellaneous Notes Patient asked if Dr. Ozuna could admit her to establish TPN feeding. I advised that Dr. Ozuna defers to the treating GI team as they are actively evaluating and treating the patient and Dr. Ozuna is not. Patient is currently set up to establish TPN in August. I advised that she can inquire if the treating team would be willing to admit her to establish TPN sooner. Aubree Lopez RN documented in this encounter [facility] 07-03-[address] [facility] 07-03-[address] [facility] 07-01-[address] [facility] 07-01-2023 History of Present illness Narrative Virtual Follow Up Visit Provider Location: Non-[facility] Facility Patient Location: Patient Home or Place of Residence SUBJECTIVE Melina Díaz [id number] has requested a video telemedicine for follow up of abdominal pain and diarrhea. Last seen 06/02/[address] Goddard. IBD History (copied and updated from prior notes) Ms. Díaz, is a 47-year-old female with history of multiple bariatric surgeries chronic diarrhea and abdominal pain. Changes and test results since last visit: Had EGD this weeks. Is drinking a lot not eating a lot. Ongoing nausea taking phenergan around the clock with pain and nausea and emesis gets a lot of pain. Feeling dehydrated with leg cramps having blurry vision. 8-10 BMs daily all watery on occasion with soft. No blood. Waking up 2-3 times a night. Has urgency and incontinence. Decreased appetite has lost 15 lbs over the last few months. Has dark burning urine Taking creon with meals and snacks Fecal elastase 04/21/2023: 62 EGD/EUS 06/26/2023 Impression: - There was no sign of significant pathology in the pancreatic body and pancreatic tail. - The head of the pancreas and ampulla could not be visualized due to gelacio-en-y gastric bypass anatomy. 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 No ulcers, fistulas or stenosis. - Normal esophagus. No hiatal hernia. No esophagitis. - Normal jejunum. - No specimens collected. Current Clinical Symptoms # of bowel movements daily: 8-10 Consistency: loose Bloody bowel movements: no Urgency: yes Abdominal pain: yes Abdominal distention: yes Nausea/vomiting: yes Weight loss over last 3 months: no Immunization History Administered Date(s) Administered COVID-19 original vaccine, age 12+ yr, monovalent (Sponto - PURPLE TOP) 12/19/2020 01/09/2021 influenza (HD-IIV3) vaccine, age 65+ yr, high dose, PF (FLUZONE HIGH-DOSE) 08/06/2020 influenza (IIV4) vaccine, age 6 mo - 64 yr, quadrivalent, PF (AFLURIA, FLUARIX, FLULAVAL, FLUZONE) 06/28/2015 06/02/2021 06/16/2022 influenza (RIV3) vaccine, recombinant, trivalent, PF (FLUBLOK) 08/05/2020 influenza vaccine, unspecified formulation 07/22/2019 pneumococcal (PPV23) vaccine, 23 valent (PNEUMOVAX 23) 05/17/2010 tetanus diphtheria pertussis (Tdap) vaccine, age 7+ yr (ADACEL, BOOSTRIX) 04/20/2006 Current Outpatient Medications Medication Sig Dispense Refill iv contrast (will be provided with radiology test) MRI PANC/JIMBO Inject, intravenously, once for 1 dose. No IV access, insert saline lock prior to the beginning of sedation, infusion, injection of imaging exam. Discontinue saline lock post exam. If Pt. has a central line or IVAD, may access for administration according to line specific nursing protocol. Once exam is complete flush line and de-access according to line specific nursing protocol in the MR contrast administration guidelines link. 1 Each 0 Artificial Tear, Hypromellose, 0.3 % gel Use 1 Drop in both eyes daily at bedtime. please avoid using the contacts and see your eye doctor in next few days 10 g 0 tiZANidine (ZANAFLEX) 4 mg tablet Take 1 tablet by mouth every 8 hours as needed. loperamide (IMODIUM) 2 mg cap(s) Take 1-2 capsules by mouth three times a day as needed for diarrhea (for diarrhea> 3 times a day) for up to 15 days. 45 capsule 1 xdjgdo-hzxsrmdd-mbtexnh (CREON 6) 6,000-19,000 -30,000 unit delayed release capsule Take 1 capsule by mouth three times a day with meals. semaglutide (OZEMPIC) 0.25 mg or 0.5 mg(2 mg/1.5 mL) pen Inject 0.5 mg subcutaneously one time a week. acetaminophen (TYLENOL) 325 mg tablet Take 2 tablets by mouth every 6 hours as needed for pain. promethazine (PHENERGAN) 25 mg tablet Take 1 tablet by mouth every 8 hours as needed (for nausea). 40 tablet 0 cholecalciferol (VITAMIN D3) 1,000 unit tab tablet take 1 tablet by mouth once daily . BREAK OPEN AND RELEASE UNDER TONGUE FOR BEST ABSORPTION 90 tablet 0 levothyroxine (SYNTHROID) 50 mcg tablet Take 50 mcg by mouth. cyanocobalamin, vitamin B-12, (B-12 COMPLIANCE) 1,000 mcg/mL kit 1 mL by INJECTION(UNSPECIFIED PARENTERAL ROUTES) route one time a week. ALPRAZolam (XANAX) 0.5 mg tablet Take 0.5 mg by mouth at bedtime as needed. dextroamphetamine-amphetamine (ADDERALL) 20 mg tablet Take 20 mg by mouth twice daily. No current facility-administered medications for this visit. ALLERGIES Allergen Reactions Gabapentin Angioedema Patient reports throat swelling with gabapentin. Tramadol Hives Adhesive Tape (Serina* Rash, Swelling, Itching Nsaids (Non-Steroid* Contraindication-Medical Surgical S/p gelacio en y gastric bypass Paxil [Paroxetine] Intolerance Gi upset Scopolamine Other: See Comments Blurred vision Toradol [Ketorolac * Hives, Swelling PAST SURGICAL HISTORY Procedure Laterality Date ASSIST ONLY x3 EGD multiple GASTRIC BYPASS HX 12/2021 conversion from gastruc sleeve LAPAROSCOPY SURG CHOLECYSTECTOMY 2005 Cholecystectomy, lap PAST SURGICAL HISTORY OF 10/28/2011 gastric sleeve PAST SURGICAL HISTORY OF 2011 excision of goiter PAST SURGICAL HISTORY OF thyroid mass removed REMOVAL STOMACH,GELACIO-EN-Y 07/29/2022 TOTAL ABDOMINAL HYSTERECT W/WO RMVL TUBE OVARY 05/01/2010-05/2011 Hysterectomy, partial uterus then completion Review of Systems: See HPI PHYSICAL EXAMINATION General: alert and appropriate, in no distress and well-hydrated, well nourished , Head: normocephalic, no abnormality or lesion noted, Eyes: visual acuity is grossly normal, no injection,, and EOMI, Oropharynx: moist mucus membranes, no tonsillar hypertrophy/exudate, uvula midline and pharynx non-erythematous, lips, teeth and gums are without obvious lesion, Neck: full ROM, no cervical LNs noted, Respiratory: breathing non-labored, and no grunting/flaring/retractions, Chest: equal chest rise with normal respiratory effort, Abdomen: flat appearing. Visible protrusions or hernias: No Incisions/scars: None Areas of pain/tenderness: Denies Skin: no rash noted, Neuro: Patient seen sitting with normal appearing strength and coordination. No focal motor deficits. Psych: Appropriate mood and interaction Most recent labs: CBC: WBC (k/uL) Date Value 06/26/2023 6.88 Hematocrit (%) Date Value 06/26/2023 41.0 MCV (fL) Date Value 06/26/2023 90.7 Platelet Count (k/uL) Date Value 06/26/2023 271 Lymphocytes % (%) Date Value 06/26/2023 33.9 Hepatic Function Panel: Albumin (g/dL) Date Value 06/26/2023 4.5 Bilirubin, Total (mg/dL) Date Value 06/26/2023 0.3 Bilirubin, Conjugated (mg/dL) Date Value 08/04/2022 <0.2 Alkaline Phosphatase (U/L) Date Value 06/26/2023 133 (H) AST (U/L) Date Value 06/26/2023 26 ALT (U/L) Date Value 06/26/2023 37 Protein, Total (g/dL) Date Value 06/26/2023 6.9 CRP: CRP Date Value Ref Range Status 06/26/2023 <0.3 <0.9 mg/dL Final No results found for: QTBGOLD No results found for: HRINTP No results found for: TBTEST No results found for: PTMPT Folate Date Value Ref Range Status 04/02/2023 7.7 >4.7 ng/mL Final Vitamin B12 Date Value Ref Range Status 06/26/2023 434 232 - 1,245 pg/mL Final Iron Date Value Ref Range Status 06/26/2023 109 41 - 186 ug/dL Final TIBC Date Value Ref Range Status 06/26/2023 364 232 - 386 ug/dL Final Vitamin D 25 Hydroxy Date Value Ref Range Status 06/26/2023 19.6 (L) 31.0 - 80.0 ng/mL Final Comment: Classification of 25 OH Vitamin D status: Deficiency/Insufficiency: < or = 30 ng/ml. Sufficiency/Optimal Levels: 31-80 ng/mL Toxicity: > 100 ng/mL. Test performed by chemiluminescent immunoassay. Assessment IMPRESSION (as copied and updated from my / note and reflects medical decision making today): 47-year-old female with history of multiple bariatric surgeries chronic diarrhea and abdominal pain. She presents today as a post endoscopic follow-up. EGD was unable to fully evaluate pancreas via EUS and no abnormality was found on direct visualization. We will plan for MRI pancreas to fully evaluate. She continues to have a lot of diarrhea 8-10 bowel movements daily all watery with rare formed. No blood. Does wake up 2-3 times a night. Has urgency and incontinence decreased appetite and has lost 15 pounds over the last few months continues to have dark brown urine and signs of dehydration. She has ongoing nausea and takes Phenergan amyhde-bai-fmqjh with minimal benefit. She does have a low fecal elastase and has been taking Creon without much relief and I will increase to 3 pills with meals and 2 pills with snacks I discussed using liquid IV and plenty of fluids for hydration. We will [facility] to [facility] due to ongoing severe diarrhea. Would suggest follow-up with Dr. Tony may who is our GI doctor who specializes in gastric bypass patients to see his insight into ongoing chronic pain as I suspect it is related to her previous surgical interventions.. We will plan for refill of promethazine. PLAN Creon increase to 3 pills with meals and 2 with snacks Liquid IV for hydration Consult to [facility] Would suggest follow up with Dr. Isidoro Womack Refill promethazine I spent 30 minutes in the virtual visit, with more than 50% of the total mrxa-dr-anis time of the visit in counseling / coordination of care. I have confirmed and edited as necessary, the PFSH and ROS obtained by others. I will communicate my recommendations and prescriptions to the patient's primary care provider. Unrelated to E/M, telemedicine, or virtual visit service provided within previous 7 days. No E/M service or procedure anticipated within next 24 hours. I have communicated my name and active licensure. The patient's identity and physical location were verified at the time of this visit. 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 Jorge L Saha PA-C July 01, 2023 9:36 AM documented in this encounter [facility] 06-27-2023 Note HNO ID: [id number] Author: Note, Interface Service: ? Author Type: ? Type: Progress Notes Filed: 06/27/2023 1:48 AM Note Text: Epic Scheduled Downtime: 06/27/2023 1:00:00 AM to 06/27/2023 1:28:[address] [facility] 06-26-2023 Nurse Note AMBULATORY PATIENT EDUCATION NOTE TOPIC: GI PROCEDURES: Endoscopic Ultrasound (EUS) with or without Fine Needle Aspiration (FNA) Esophagogastroduodenoscopy(EGD) with or without biopies based on clinical findings, removal of polyps or lesions READINESS TO LEARN INSTRUCTION PROVIDED TO: Patient, readness to learn accessed prior to procedure COGNITIVE ABILITY: Alert and oriented PTED MOTIVATION TO LEARN: Interested FAMILY SUPPORT: High - Very involved in pt care IPATIENT LEARNS BEST BY: Individual Instruction Written Instruction - Hand-outs Verbal Instruction FACTORS AFFECTING LEARNING: None PHYSICAL LIMITATIONS AFFECTING LEARNING: None LEARNING RESPONSE METHOD OF INSTRUCTION: Individual instruction PATIENT / FAMILY RESPONSE: Verbalizes understanding of: WORSENING CONDITION-Signs and symptoms of a worsening condition that warrant a call to the physician FOLLOW-UP PLAN: Patient instructed to call with any further issues SUPPLEMENTAL MATERIAL: Procedure Discharge Instructions REFERRAL (RECOMMENDATION): None PRE OP LEARNING ASSESSMENT PROCEDURE/SURGERY: GI PROCEDURES: EGD and ESU READINESS TO LEARN COGNITIVE ABILITY: Alert and oriented MOTIVATION TO LEARN: Interested FAMILY SUPPORT: High - Very involved in pt care PATIENT LEARNS BEST BY: Individual Instruction FACTORS AFFECTING LEARNING: None PHYSICAL LIMITATIONS AFFECTING LEARNING: None Electronically Signed By: ASHA HORN RN In Department: GASTROENTEROLOGY documented in this encounter [facility] 06-26-2023 History and physical note HISTORY AND PHYSICAL Melina Díaz presents for endoscopic procedure Current history and physical on file: No Is a new History and Physical required for today's visit? Yes Indication for procedure: Please see procedure's ordering provider for details (encounter/endoscopy order details). PROCEDURE(S) SCHEDULED FOR: Please see consent form for details of endoscopic procedure. BASELINE BEHAVIOR: Calm BASELINE ORIENTATION: Alert and oriented x3 All medications and allergies reviewed: Yes Skin Assessment: Warm dry mucus membranes pink Airway/Respiratory Assessment: Airway: visualization of the uvula- Yes Mouth: opening greater than 2 fingerbreadths- Yes Neck: full range of motion- Yes Breath sounds clear/equal- Yes Cardiac Assessment: Regular rate and rhythm without murmur Abdominal Assessment: Abdomen soft, non-tender, no masses or organomegaly. Sedation Plan: Anesthesia (MAC or GA) Consent: Obtained, please see consent form for details. Additional Comments: None General Accountant: Q3 bedside nurse. Lawrence Andrade MD MSc Advanced Interventional Endoscopy GI/Bariatric Endoscopy [facility] - [facility] documented in this encounter [facility] 06-24-[address] [facility] 06-24-[address] - 06/24/2023 2:27 PM EDT Nutrition Interventions Increase Creon to 2 caps at snacks and 3 caps at meals Continue salty starchy foods to aid in hydration status and tolerance examples: rice, pasta, bread, mashed potatoes, crackers, smooth peanut butter, banana, pretzels, tapioca, canned soups, canned vegetables, baked lays Sunfiber up to three times/day, samples on this website. This might be better tolerated than the fiber you previously tried https://what3words.ecobee/ [employer] chicken, vegetable or beef soups (high in protein and salty for hydration needs) https://Hardscore Games.ecobee/collections/high -protein-soups Continue to have oral rehydration solutions see below for more ideas Continue to add no flavor protein powder to foods, [employer], will send samples to [facility] [employer] (whey) I will dioni out to Hung Morales about the CGRT refereal (for fluoid and nutrition support) Follow up with Sera Sousa RD 08/03 @8:30am virtually Oral rehydrations Solutions: These are isotonic solutions that better hydrate you than just plain water. They have a balance of sugar, sodium and other electrolytes to aid in hydration status >>these solutions can be helpful when you are having increased and loose bowel movements. You may be losing a lot of fluid, sodium and other electrolytes in your output. >>Here are some commercial products that you can get online, at grocery stores, and drug stores. These are typically packets that you add to water - drip drop packets https://www.dripdrop.com/ - liquid IV packets https://www.liquid-iv.com/ - Pedialyte liters or packets https://www.pedialyte.ecobee/ >> You can also make your own at home using the following recipe. 1 cup of juice (apple, grape, cranberry) + 3 cups water + 1/2 teaspoon salt Some other options that do not contain sugar but can provide electrolytes and aid in hydration strategies >>NUUN (tablets that you add to water) has a small amount of stevia and sorbitol in it https://nuunlife.com/ >>LMNT (very salty can help POTS symptoms as well) has stevia https://drinklmnt.com/ documented in this encounter [facility] 06-24-2023 History of Present illness Narrative GI Nutrition TeleHealth Consult - Initial Assessment I have communicated my name and active licensure. The patient s identity and physical location were verified at the time of this visit. Either the patient or their legal security systems sales representative has been informed of the risks and benefits of -- and alternatives to -- treatment through a remote evaluation and consents to proceed with the evaluation remotely Nutrition Diagnosis: Altered Gastrointestinal Tract Function, related to, S/P bariatric surgery, as evidenced by increased freqeuncy and loose stools . RECOMMENDED MALNUTRITION DIAGNOSIS: NO MALNUTRITION IDENTIFIED NUTRITION CARE PLAN Nutrition Intervention June 24, 2023 : Diet: --low roughage diet for now --salty starch and protein with every meal and snack Vitamins/Minerals: --continue current Oral supplements: --low sugar high protein shakes, and no flavored protein powder to foods (samples sent) --ORS every day --sunfiber daily (up to three times) Other: --increase Creon 2 caps at snacks and 3 caps at meals Nutrition Monitoring & Evaluation: improvement in GI symptoms Criteria: per pt report Need for Follow up: 08/03 @8:30m virtually This is a 47 year-old female with an underlying diagnosis of diarrhea who is followed by Dr. Goddard. [facility] of bariatric surgeries - sleeve, sleeve revision, and now a RYGB. Since then, about one year ago, she c/o of darrhea, C difficile positive once and she responded to vancomycin. Recent C difficile negative. Now with about 5 bm daily with abd pain, is not able to ID a specific food that causes the diarrhea. Worse with cholestyramine, no help with creon Most recently went to ED for abd pain, nausea vomiting and diarrhea. Given Zofran and advised to take imodium to aid in symptoms. Today, patient reports the following: --pt started in February to a few loose stools and abd pain a few times per day. Started keeping a food journal and cut out some foods that she had previously tolerated. --Some days are better than others, she has more fatigued, diarrhea hits at any time, is not really associated with food, like dumping syndrome. Doesn't matter what she ate or drank --did some testing and treated for SIBO and improved some ingestion and bloating issues --has noticed that carb are a little easier, does not make it worse but does not make it better --no celiac on biopsies (was eating gluten at this time) --had tried Imodium in the past (up to 10 per day and did not help) has been on lomotil as well Current Clinical Symptoms # of bowel movements daily: 10-15 times/day # of liquid stools daily: all Consistency: watery, loose Bloody bowel movements: no Urgency: yes Abdominal pain: yes, random attacks Abdominal distention: yes Nausea/vomiting: yes, takes meds which helps Heartburn/reflux: no Intake: Appetite is good, wants to eat, but cannot Diet History: Breakfast - scrambled eggs and egg beater with a piece of sausage, and 1/4 sweet potatoes Lunch - vegetable stew, chicken and rice Snack - vegetables and cottage cheese dip with huff and ranch seasoning (not recently) protein bars, granola bars, and nicola crackers, oat meal cookies Dinner - chicken and rice, potatoes, banana, apples Beverages - does not drink carbonated drinks, snaple light, Gatorade zero, Pedialyte Vitamins/Supplements - -- B12 1000mcg/day -- vitamin D 1000/day Allergies/Intolerance: --none noted --lactose (abd pain and loose stools) --red meat (does not like) --fresh vegetables (loose stools and abd pain) Gabapentin, Tramadol, Adhesive Tape (Rosins), Nsaids (Non-Steroidal Anti-Inflammatory Drug), Paxil [Paroxetine], Scopolamine, and Toradol [Ketorolac Tromethamine] Medications: CURRENT MEDICATIONS Current Outpatient Medications Medication Sig Dispense Refill Artificial Tear, Hypromellose, 0.3 % gel Use 1 Drop in both eyes daily at bedtime. please avoid using the contacts and see your eye doctor in next few days 10 g 0 baclofen 5 mg tablet Take 1 tablet by mouth three times a day as needed (abdominal pain) for up to 15 days. use these medication as first line for abdominal pain (along with tylenol 1 gm 4 times a day and bentyl) and if response is inadequate use the tizanidine. 45 Each 0 dicyclomine (BENTYL) 10 mg capsule Take 1 capsule by mouth three times a day for 15 days. 45 capsule 0 tiZANidine (ZANAFLEX) 4 mg tablet Take 1 tablet by mouth every 8 hours as needed. loperamide (IMODIUM) 2 mg cap(s) Take 1-2 capsules by mouth three times a day as needed for diarrhea (for diarrhea> 3 times a day) for up to 15 days. 45 capsule 1 ddprfc-poxkkukh-qqppwzh (CREON 6) 6,000-19,000 -30,000 unit delayed release capsule Take 1 capsule by mouth three times a day with meals. ondansetron orally disintegrating (ZOFRAN ODT) 4 mg disintegrating tablet Take 1 tablet by mouth every 8 hours as needed for nausea/vomiting for up to 15 days. 45 tablet 0 prochlorperazine (COMPAZINE) 10 mg tablet Take 1 tablet by mouth every 6 hours as needed for up to 15 days. 2nd line if the zofran is NOT enough to control nausea and vomiting 45 tablet 0 lidocaine (SALONPAS, LIDOCAINE,) 4 % patch Apply 1 application as directed once daily for 5 days. over left lower rib cage area 5 Patch 0 semaglutide (OZEMPIC) 0.25 mg or 0.5 mg(2 mg/1.5 mL) pen Inject 0.5 mg subcutaneously one time a week. acetaminophen (TYLENOL) 325 mg tablet Take 2 tablets by mouth every 6 hours as needed for pain. promethazine (PHENERGAN) 25 mg tablet Take 1 tablet by mouth every 8 hours as needed (for nausea). 40 tablet 0 cholecalciferol (VITAMIN D3) 1,000 unit tab tablet take 1 tablet by mouth once daily . BREAK OPEN AND RELEASE UNDER TONGUE FOR BEST ABSORPTION 90 tablet 0 levothyroxine (SYNTHROID) 50 mcg tablet Take 50 mcg by mouth. cyanocobalamin, vitamin B-12, (B-12 COMPLIANCE) 1,000 mcg/mL kit 1 mL by INJECTION(UNSPECIFIED PARENTERAL ROUTES) route one time a week. ALPRAZolam (XANAX) 0.5 mg tablet Take 0.5 mg by mouth at bedtime as needed. dextroamphetamine-amphetamine (ADDERALL) 20 mg tablet Take 20 mg by mouth twice daily. No current facility-administered medications for this visit. Anthropometrics: Height: 5'8 Weight history: 86.2kg (06/24/23) 88.8kg (04/22/23), 93.4kg (09/28/22), 92.8kg (08/29/22) Goal weight: weight loss BMI: 28.8--overweight Weight has decreased by 7kg over 9 months representing a 7.5% weight change- non significant. Estimated needs: Calories: 1770 - 2200 kcals/day determined by 20- 25 kcal/kg Protein: 88 - 105 g/day determined by 1.0-1.2 g/kg Malnutrition Screening Significant unintentional weight loss? No Eating less than 75% of usual intake for more than 2 weeks? Yes Potential Signs of Inflammation: unable to determine at this time Education Materials Provided: None this visit Referred/Supervised by: Dr Goddard/Dr. Bailey MNT Billing Type: Initial Assess/15 min [address] documented in this encounter [facility] 06-19-2023 Miscellaneous Notes Attempted to reach the patient at the contact number that they provided [phone] (home) . 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 Failure to have a responsible adult accompany the patient to their procedure appointment prevents the use of sedation or anesthesia for their procedure; and can result in cancellation of the procedure Clear liquids the day before the procedure, stop all liquids 4 hours before the procedure Instructions to contact their primary care provider regarding their medications and which medications to stop in preparation for their procedure Instructions to completely read and follow the written instructions that they recieved regarding their procedure. Number to call with questions or concerns [phone] Number to call to cancel their procedure [phone] Esthela Last RN documented in this encounter [facility] 06-15-[address] [facility] 06-15-2023 History of Present illness Narrative VIRTUAL VISIT PROGRESS NOTE This is a virtual visit using [employer] Zoom Video Visit. It required patient-provider interaction for the medical decision making as documented below. I have communicated my name and active licensure. The patient's identity and physical location were verified at the time of this visit. 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 Melina Díaz is a 47 year old female seen for recent admission for nausea and dehydration. Discuss options for hydration. PHYSICAL EXAMINATION: VIDEO EXAM: (if completed, performed via video enabled technology) GENERAL: alert and appropriate, in no distress and well-hydrated, well nourished LABS: Component Latest Ref Rng & Units 06/11/2023 Protein, Total 6.3 - 8.0 g/dL 7.4 Albumin 3.9 - 4.9 g/dL 4.6 Calcium 8.5 - 10.2 mg/dL 9.7 Bilirubin, Total 0.2 - 1.3 mg/dL 0.2 Alkaline Phosphatase 34 - 123 U/L 125 (H) AST 13 - 35 U/L 16 ALT 7 - 38 U/L 23 Glucose 74 - 99 mg/dL 97 BUN 7 - 21 mg/dL 9 Creatinine 0.58 - 0.96 mg/dL 0.65 Sodium 136 - 144 mmol/L 141 Potassium 3.7 - 5.1 mmol/L 4.0 Chloride 97 - 105 mmol/L 106 (H) CO2 22 - 30 mmol/L 24 Anion Gap 9 - 18 mmol/L 11 eGFR >=60 mL/min/1.73m 110 Lipase 16 - 61 U/L 12 (L) Phosphorus 2.7 - 4.8 mg/dL 3.7 Component Latest Ref Rng & Units 06/12/2023 Shigella spp./Enteroinvasive E.coli DNA Not Detected Not detected Campylobacter jejuni/coli DNA Not Detected Not detected Shiga toxin-producing gene(s) Not Detected Not detected Salmonella spp. DNA Not Detected Not detected C. difficile PCR Negative for C. difficile toxin by PCR Negative for C. difficile toxin by PCR IMAGIN04/28/2023 CT FINDINGS: LOWER CHEST: Unremarkable ABDOMEN: LIVER: Within normal limits. BILE DUCTS: There is mild dilation of the intrahepatic bile ducts and extrahepatic common duct. This is possibly physiologic post cholecystectomy and is not significantly different than the prior exam. GALLBLADDER: Surgically absent PANCREAS: Within normal limits. SPLEEN: Distinctly marginated water attenuating focus in the spleen is unchanged from prior exams. ADRENAL GLANDS: Within normal limits. KIDNEYS AND URETERS: The kidneys are normal in size and enhance symmetrically. No hydroureteronephrosis or nephroureterolithiasis is identified. PELVIS: BLADDER: Within normal limits. REPRODUCTIVE ORGANS: Surgically absent BOWEL: Postsurgical changes are noted consistent with Gelacio-en-Y gastric bypass.There is focal dilation of the Gelacio in light of loop of small bowel associated with the anastomotic suture in the left lower quadrant. No proximal or distal dilation or distal collapse of bowel loops. Normal appendix. VESSELS: There is no aneurysmal dilatation of the abdominal aorta. The IVC appears normal. PERITONEUM/RETROPERITONEUM/LYMPH NODES: No ascites or free air, no fluid collection. No abdominopelvic lymphadenopathy is present. BONES AND ABDOMINAL WALL: No suspicious osseous lesions are identified. The abdominal wall structures appear intact. ASSESSMENT: (Z98.84) History of Gelacio-en-Y gastric bypass (primary encounter diagnosis) (R19.7) Diarrhea, unspecified type PLAN: I discussed with her that the surgical options for helping her with hydration would be a feeding tube placed surgically in her remnant, versus a feeding tube endoscopically in her Gelacio limb which she may not tolerate as well, versus gastric bypass reversal of we were not successful at all. I have suggested to her to continue work with gastroenterology to improve her diarrhea as this seems to be the root cause of her dehydration that she states she has been experiencing. I like to follow-up with her in several weeks as she has gotten more therapy with gastroenterology for the diarrhea. Sanford Ozuna MD documented in this encounter [facility] 06-15-[address] Ozuna there are surgical options he can offer the patient. Patient accepted same day virtual appointment to discuss her concerns and options with Dr. Ozuna. Aubree Lopez RN Patient was admitted to hospital last week for dehydration and is asking for weekly vitamin bag infusions and IV promethazine while she is getting infusions. Aubree Lopez RN documented in this encounter [facility] 06-12-2023 Note HNO ID: [id number] Author: Vanna Li RN Service: Nursing Author Type: Registered Nurse Type: Progress Notes Filed: 06/12/2023 2:06 PM Note Text: IV removed. AVS given and reviewed with pt, no additional question at this time. [facility] 06-04-2023 Consult note Note Date/Time June 04, 2023 11:39am [facility] [address] [place] [address] Gastroenterology Consult Note Signed Patient: Melina Díaz MR#: [id number] : 1975 Acct:[id number] Age/Sex: 47 / F Adm Date: 3 Loc: Room: [address] [place] [address] Type: ADM IN Attending Dr: Tavares Prince MD Copies to: MD Jarred To MD Daniel Berry II, MD~ HPI Data of Consult Date of Consultation: 06/04/23 Requesting Physician: Tavares Prince MD Consult Narrative History of present illness: Ms. Díaz is a 47 year old female who is admitted with abdominal pain. The patient is known to me from prior admissions. She has an extremely complicated GI history. Briefly she had a remote history of gastric sleeve, and had suffered issues with reflux and abdominal complaints. Ultimately this was converted to a Gelacio-en-Y gastric bypass at [facility]. Her post surgical course was extremely complicated with the developing of anastomotic strictures, ischemic bowel and esophageal strictures. This was initially managed endoscopically by her bariatric surgery team, however she had a point where she felt like they were unable to further manage her complicated care. She transferred her care to [facility] and underwent a second revision last year of her bypass. Her bypass history course is also complicated by cholecystitis requiring cholecystectomy, retained stones which required EUS directed transgastric ERCP (EDGE). Since following with [facility] she has developed multiple bouts of SIBO requiring treatment, concern for pancreaticinsufficiency and over the last several weeks worsening and severe abdominal pain related to food intake. Her [facility] advance to bariatric endoscopy team was planning for EUS for further evaluation of the pancreas, hepatobiliary tree and then possible dynamic ERCP procedure if intervention is required. cc:: CC: Tavares Prince MD Review of Systems Constitutional Constitutional: Denies poor appetite and Denies weight loss Eyes Eyes: Denies change in vision and Denies eye discharge ENT Ears, Nose, Mouth, and Throat: Denies nasal discharge, Denies sore throat and Denies vertigo Cardiovascular Cardiovascular: Denies chest pain and Denies dyspnea on exertion Respiratory Respiratory: Denies chest congestion, Denies cough and Denies dyspnea on exertion Gastrointestinal Gastrointestinal: Reports as per HPI Musculoskeletal Musculoskeletal: Denies arthralgias, Denies muscle weakness and Denies numbness Integumentary/Breasts Skin/Breast: Denies change in pigmentation and Denies rash Neurologic Neurologic: Denies numbness and Denies vertigo Psychiatric Psychiatric: Denies anxiety and Denies depression Hematologic/Lymphatic Hematologic/Lymphatic: Denies easy bruising and Denies lymphadenopathy [facility] Medical History (Updated 06/03/23 @ 14:38 by Skip Soto DO) Thyroid nodule Surgical History Gastric bypass status for obesity H/O gastric sleeve History of section History of hysterectomy Hx of cholecystectomy Family History (Updated 06/03/23 @ 15:18 by Gilda Mendoza RN) Father Emphysema lung Social History Smoking Status: Never smoker Substance Use Type: None Meds Medications and Allergies Allergies adhesive tape Allergy (Verified 06/03/23 08:28) Unknown Reaction aspartame Allergy (Verified 06/03/23 08:28) Headache gabapentin Allergy (Verified 06/03/23 08:28) Swelling of Lip/Tongue/Throat ketorolac [From Toradol] Allergy (Verified 06/03/23 08:28) Edema tramadol Allergy (Verified 06/03/23 08:28) Hives Home Medications calcium citrate 250 mg PO BID 04/29/22 [History Confirmed 06/03/23] cyanocobalamin (vitamin B-12) 1,000 mcg/mL injection solution (Dodex) 1,000 mcg IM QWEEK 04/29/22 [History Confirmed 06/03/23] diphenhydramine HCl 25 mg capsule (Benadryl) 25 mg PO TID PRN HIVES 04/29/22 [History Confirmed 06/03/23] eletriptan 40 mg tablet (Relpax) 40 mg PO Q2H PRN Headache 04/29/22 [History Confirmed 06/03/23] levothyroxine 50 mcg tablet (Synthroid) 50 mcg PO DAILY 04/29/22 [History Confirmed 06/03/23] omeprazole 40 mg capsule,delayed release 40 mg PO BID 04/29/22 [History Confirmed 06/03/23] oxycodone 5 mg/5 mL oral solution 7.5 mg PO Q4-6H 04/29/22 [History Confirmed 06/03/23] promethazine 25 mg tablet 25 mg PO Q8HR 04/29/22 [History Confirmed 06/03/23] psyllium seed (sugar) oral powder (Metamucil [place] oral powder) 1 tbsp PO BID PRN constipation #575 grams 05/04/22 [Rx Confirmed 06/03/23] dextroamphetamine-amphetamine 15 mg tablet 15 mg PO BID 06/03/23 [History Confirmed 06/03/23] tizanidine 4 mg tablet 4 mg PO Q4H 06/03/23 [History Confirmed 06/03/23] Exam Physical Exam Vital Signs: Temp Pulse Resp BP Pulse Ox O2 Del Method 97.8 F 61 18 120/80 97 Room Air 06/04/23 08:00 06/04/23 08:00 06/04/23 08:00 06/04/23 08:00 06/04/23 08:00 06/04/23 08:00 Const General: no acute distress and well developed HEENT Head: normocephalic and atraumatic Mouth: moist mucous membranes Eyes Sclera: sclerae normal (no scleral icterus) EOM: EOM intact bilaterally Neck Other: trachea midline Resp Effort & Inspection: normal respiratory effort and able to speak in complete sentences GI Inspection: normal to inspection and non-distended Palpation: soft and nontender Skin General: turgor normal and no jaundice Neuro General: patient alert and patient oriented x3 Psych Appearance: grossly normal Mental Status: mental status grossly normal Results Labs Labs: Laboratory Results - last 24 hr 06/03/23 06/03/23 06/03/23 14:10 15:08 16:48 POC Glucose 72 Lactic Acid 0.8 Urine Color Yellow Urine Appearance Clear Urine pH 5.5 Ur Specific [place] > 1.050 H Urine Protein Negative Urine Glucose (UA) Normal Urine Ketones Negative Urine Occult Blood Negative Urine Nitrite Negative Urine Bilirubin Negative Urine Urobilinogen Normal Ur Leukocyte Esterase Negative C. difficile Tox B Gene 06/03/23 06/03/23 06/04/23 21:17 22:37 06:26 POC Glucose 89 100 Lactic Acid Urine Color Urine Appearance Urine pH Ur Specific [place] Urine Protein Urine Glucose (UA) Urine Ketones Urine Occult Blood Urine Nitrite Urine Bilirubin Urine Urobilinogen Ur Leukocyte Esterase C. difficile Tox B Gene Negative 06/04/23 11:17 POC Glucose 91 Lactic Acid Urine Color Urine Appearance Urine pH Ur Specific [place] Urine Protein Urine Glucose (UA) Urine Ketones Urine Occult Blood Urine Nitrite Urine Bilirubin Urine Urobilinogen Ur Leukocyte Esterase C. difficile Tox B Gene A&P - Gastroenterology Assessment/Plan (1) Abdominal pain: Code(s): R10.9 - Unspecified abdominal pain Status: Acute (2) Vomiting: Code(s): R11.10 - Vomiting, unspecified Status: Acute (3) Diarrhea: Code(s): R19.7 - Diarrhea, unspecified Status: Acute (4) Pyloric stenosis: Code(s): K31.1 - Adult hypertrophic pyloric stenosis Status: Acute (5) History of gastric bypass: Code(s): Z98.84 - Bariatric surgery status Status: Acute (6) Complications of gastric bypass surgery: Code(s): K91.89 - Other postprocedural complications and disorders of digestive system; Y83.2 - Surgical operation with anastomosis, bypass or graft as the cause of abnormal reaction of the patient, or of later complication, without mention of misadventure at the time of the procedure Status: Acute Plan Unfortunately with this patient's extremely complicated anatomy she is not appropriate for further work-up at a [facility]. I do agree with her advanced and bariatric teams at [facility] that the next most beneficial test would be an EUS for further evaluation of her pancreas and biliary tree. I agree with transfer to tertiary care center, ideally [facility] or herbariatric and advanced endoscopy teams are at and no her anatomy well. Otherwise symptomatic care pending transfer. Thank you for this consult, little further to add from a GI standpoint. I will sign off at this time. Documented By: Jarred Begum MD 06/04/23 1134 Signed By: <Electronically signed by Jarred Begum MD> 06/04/23 1138 [facility] Work Phone: 1(262) 226-891309-20-2023 History and physical note Author Tavares Prince [facility] June 03, 2023 2:49pm Note Date/Time June 03, 2023 2:49pm [facility] [address] [place] [address] Hospitalist H&P Signed Patient: Melina Díaz MR#: [id number] : 1975 Acct:[id number] Age/Sex: 47 / F Adm Date: 3 Loc: ER Room: Type: [facility] ER Attending Dr: Copies to: MD Dania To II, MD Jared M Lizzi, DO~ HPI DATE OF EXAMINATION: 06/03/23 HISTORY OF PRESENT ILLNESS: Patient is a 47-year-old female, status post gastric surgical procedures. It appears that she had initially undergone gastric sleeve procedure some 10 years prior. About 1 year prior to current presentation she had a revision done at [facility] for ulcers. There were some complications, and the patient changed to [facility], when she underwent another revision in July 2022. Things improved for a while, but since the end of March,, she started having diarrhea, weakness, inability to tolerate food. Sounds like she was diagnosed with bacterial overgrowth, and thecourse of antibiotics for few weeks improved some of the symptoms. She was thought to have some pancreatic insufficiency and perhaps prediabetes related tothat. She presents to our facility today, complaining of worsening abdominal pain for the last 24 hours, more so in the epigastrium and radiating to the back. The food intake worsens the pain. She has persistent diarrhea but no blood in the vomitus or stool. ED staff discussed the case with [facility], patient is admitted there, butthe bed not being immediately available, patient will be admitted to us for temporary treatment. Past medical history Obesity, status post gastric surgery, complications as noted above Family history negative for gastrointestinal problems 10 point review of systems negative except as noted above Physical exam Patient was seen in the ED Patient appears comfortable, in no distress. Skin is normally colored, no icterus, cyanosis or edema noted. Capillary refill is normal. Joints are without any effusion. Abdomen is mildly tender to palpation, otherwise soft benign, no rebound rigidity. Heart regular, no gallop, rub or JVD. Peripheral pulses present bilaterally. Lungs are clear to auscultation, no rales, ronchi or wheezes. HENT normal Neurological: Patient is awake. Cognition is normal. Cranial nerves are intact. Power is symmetric all extremities, with no focal motor deficit identified on a cursory exam. Psych: affect is normal. Labs imaging reviewed CT scan shows mild diffuse colitis, new compared to prior study. Assessment and plan 1. Recurrent abdominal pain, diarrhea, food intolerance. Patient has a complex gastrointestinal history, status post gastric sleeve procedure, with 2 revisions. It sounds like she had peptic ulcer disease, pyloric stenosis, bacterial overgrowth and potentially pancreatic insufficiency or even pancreatitis. Imaging studies currently raise the question of potentialcolitis. The decision to transfer to [facility] is entirely appropriate. About not being immediately available, we will admit the patient to the floor for temporary treatment here. IV fluids Antiemetic Pain medications GI consult DVT prophylaxis with enoxaparin [facility] Medical History (Updated 06/03/23 @ 14:38 by Skip Soto DO) Thyroid nodule Surgical History Gastric bypass status for obesity H/O gastric sleeve History of section History of hysterectomy Hx of cholecystectomy Social History Smoking Status: Never smoker Substance Use Type: None Meds Medications and Allergies Allergies adhesive tape Allergy (Verified 06/03/23 08:28) Unknown Reaction aspartame Allergy (Verified 06/03/23 08:28) Headache gabapentin Allergy (Verified 06/03/23 08:28) Swelling of Lip/Tongue/Throat ketorolac [From Toradol] Allergy (Verified 06/03/23 08:28) Edema tramadol Allergy (Verified 06/03/23 08:28) Hives Home Medications calcium citrate 250 mg PO BID 04/29/22 [History Confirmed 06/03/23] cyanocobalamin (vitamin B-12) 1,000 mcg/mL injection solution (DodBizimply) 1,000 mcg IM QWEEK 04/29/22 [History Confirmed 06/03/23] dextroamphetamine-amphetamine 20 mg tablet 20 mg PO BID 04/29/22 [History Confirmed 06/03/23] diphenhydramine HCl 25 mg capsule (Benadryl) 25 mg PO TID PRN HIVES 04/29/22 [History Confirmed 06/03/23] eletriptan 40 mg tablet (Relpax) 40 mg PO Q2H PRN Headache 04/29/22 [History Confirmed 06/03/23] levothyroxine 50 mcg tablet (Synthroid) 50 mcg PO DAILY 04/29/22 [History Confirmed 06/03/23] omeprazole 40 mg capsule,delayed release 40 mg PO BID 04/29/22 [History Confirmed 06/03/23] oxycodone 5 mg/5 mL oral solution 7.5 mg PO Q4-6H 04/29/22 [History Confirmed 06/03/23] promethazine 25 mg tablet 25 mg PO Q8HR 04/29/22 [History Confirmed 06/03/23] psyllium seed (sugar) oral powder (Metamucil [place]on oral powder) 1 tbsp PO BID PRN constipation #575 grams 05/04/22 [Rx Confirmed 06/03/23] tizanidine 4 mg tablet 4 mg PO Q4H 06/03/23 [History Confirmed 06/03/23] Exam Physical Exam Vital Signs: Temp Pulse Resp BP Pulse Ox O2 Del Method 98.3 F 101 H 18 116/69 96 Room Air 06/03/23 12:16 06/03/23 14:40 06/03/23 14:40 06/03/23 14:40 06/03/23 14:40 06/03/23 14:40 Results Lab Results Labs: Laboratory Last Values Corrected WBC 7.0 X10E3/uL (3.8-11.6) 06/03/23 09:06 Uncorrected WBC Count 7.0 x10E3/uL (3.8-11.6) 06/03/23 09:06 RBC 4.70 X10E6/uL (3.60-5.00) 06/03/23 09:06 Hgb 13.9 g/dL (11.8-15.4) 06/03/23 09:06 Hct 41.9 % (34.0-46.4) 06/03/23 09:06 MCV 89.3 fl (80-100) 06/03/23 09:06 MCH 29.5 pg (24.7-34.3) 06/03/23 09:06 MCHC 33.1 g/dL (32.0-35.0) 06/03/23 09:06 RDW 14.5 % (11.9-15.3) 06/03/23 09:06 Plt Count 256 x10E3/uL (150-450) 06/03/23 09:06 MPV 8.3 fl (6.3-10.7) 06/03/23 09:06 Neut % (Auto) 56.9 % (.) 06/03/23 09:06 Lymph % (Auto) 33.7 % (.) 06/03/23 09:06 [place] % (Auto) 6.8 % (.) 06/03/23 09:06 Eos % (Auto) 1.5 % (.) 06/03/23 09:06 Baso % (Auto) 1.1 % (.) 06/03/23 09:06 Nucleat RBC Rel Count 0.2 /100 WBC (0-0.5) 06/03/23 09:06 Neut # (Auto) 4.0 x10E3/uL (1.8-7.7) 06/03/23 09:06 Lymph # (Auto) 2.4 x10E3/uL (1.00-4.8) 06/03/23 09:06 [place] # (Auto) 0.5 x10E3/uL (0.0-0.8) 06/03/23 09:06 Eos # (Auto) 0.1 x10E3/uL (0.0-0.45) 06/03/23 09:06 Baso # (Auto) 0.1 x10E3/uL (0.0-0.2) 06/03/23 09:06 Monocyte Dist Width 16.68 % (0.00-20.00) 06/03/23 09:06 PT 10.9 Seconds (9.0-12.9) 06/03/23 09:06 INR 0.9 06/03/23 09:06 APTT 28.4 Seconds (25.1-36.5) 06/03/23 09:06 PHA Creatinine Clear 132.34 06/03/23 09:06 Sodium 142 mmol/L (136-145) 06/03/23 09:06 Potassium 3.9 mmol/L (3.5-5.1) 06/03/23 09:06 Chloride 106 mmol/L (98-107) 06/03/23 09:06 Carbon Dioxide 25.4 mmol/L (21.0-31.0) 06/03/23 09:06 Anion Gap 14.5 mEq/L (6.0-15.0) 06/03/23 09:06 BUN 8 mg/dL (7-25) 06/03/23 09:06 Creatinine 0.62 mg/dL (0.60-1.20) 06/03/23 09:06 Est GFR (CKD-EPI) > 60.0 mL/Min 06/03/23 09:06 Glucose 138 mg/dL (70-100) H 06/03/23 09:06 Lactic Acid 0.8 mmol/L (0.5-2.2) 06/03/23 14:10 Calcium 9.3 mg/dL (8.6-10.3) 06/03/23 09:06 Total Bilirubin 0.5 mg/dl (0.3-1.0) 06/03/23 09:06 Direct Bilirubin 0.10 mg/dL (0.03-0.18) 06/03/23 09:06 Indirect Bilirubin 0.4 mg/dL 06/03/23 09:06 AST 26 U/L (13-39) 06/03/23 09:06 ALT 43 U/L (7-52) 06/03/23 09:06 Alkaline Phosphatase 104 U/L (34-104) 06/03/23 09:06 Total Protein 7.0 gm/dL (6.4-8.9) 06/03/23 09:06 Albumin 4.3 gm/dL (3.5-5.7) 06/03/23 09:06 Globulin 2.7 gm/dL 06/03/23 09:06 Albumin/Globulin Ratio 1.6 06/03/23 09:06 Lipase 6.0 U/L (11.0-82.0) L 06/03/23 09:06 Assessment & Plan IP vs OBS Justification Based on differential dx, clinical care plan, and risk of adverse events, if untreated, in my clinical judgement this patient requires an acute care setting as: INPATIENT because of an expectation of an over 2 midnight stay. Estimated length of stay (# of days): 2 Documented By: Tavares Prince MD 06/03/231442 Signed By: <Electronically signed by Tavares Prince MD> 06/03/23 0192 [facility] Work Phone: 1(488) 880-517509-19-2023 [facility] History of Present illness Narrative* Maged Goddard MD - 06/02/2023 8:46 AM EDT Virtual visit, 20 minutes, patient agreed I have communicated my name and active licensure. The patient's identity and physical location wereverified at the time of this visit. Either the patient or their legal security systems sales representative has been informed of the risks and benefits of -- and alternatives to -- treatment through a remote evaluation andconsents to proceed with the evaluation remotely. 47 yo with multiple bariatric surgeries - sleeve, sleeve revision, and now a RYGB. Since then, about one year ago, she c/o of darrhea, C difficile positive once and she responded to vancomycin. Recent C difficile negative. Now with about 5 bm daily with abd pain, is not able to ID a specific food that causes the diarrhea. Worse with cholestyramine, no help with creon. Also on zanaflex and narcotic for abd pain. CT, EGD, colonoscopy with biopsies - no cause for sx found. Fecal elastase low. 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 Antibiotics for SIBO helped partially. Diarrhea and abd pain - will check labs, stools, EGD/EUS with Dr. Gracia Womack, nutrition consult. Will ask her to stop cholestyramine and narcotic. Continue Creon and Zanaflex. Maged Goddard MD documented in this encounterMet[facility]* Encounter Date Diagnosis Assessment Notes Treatment Notes Treatment Clinical Notes May, Sore throat (ICD-10 - J02.9) May, Acute sinusitis, recurrence not specified, unspecified location (ICD-10 - J01.90) Sinusitis home care material was printed Drink plenty fluids, get plenty of rest. Continue home medications as prescribed. Take the amoxicillin with clavulanate and the Medrol Dosepak as prescribed until gone. Use the fluticasone nasal spray as prescribed and your symptoms improved. Take Tylenol or Motrin as needed for aches pains or fevers. Follow-up with your family physician if no improvement in 2 to 3 days [facility] Other 09-05-2023 Note[facility] History of Present illness Narrative* Sanford Ozuna MD - 05/19/2023 9:00 AM EDT VIRTUAL VISIT PROGRESS NOTE This is a virtual visit using [employer] video visit. It required patient-provider interaction for themedical decision making as documented below. I have communicated my name and active licensure. The patient's identity and physical location wereverified at the time of this visit. Either the patient or their legal security systems sales representative has been informed of the risks and benefits of -- and alternatives to -- treatment through a remote evaluation andconsents to proceed with the evaluation remotely. Melina Díaz is a 47 year old female seen for continued diarrhea. Was treated for SIBO without improvement in the diarrhea, although she thinks her bloating and burping were improved with this treatment.. July Fuentes started patient on Creon for pancreatic insufficiency. As far she has not noticed any improvement in her symptoms though her she just started treatment 3 days ago. She is having more bloating and cramping after this. We reviewed also her prior treatment history by me which had included bile acid sequestrant's although we had discontinued those, at that time her diarrhea has been determined to be secondary to a C.difficile infection. She feels like she is on the border of dehydration due to her frequent liquid bowel movements though she has not needed IV fluids. I had a long conversation with her call centre supervisor Dr. Fuentes last week and the creatinine had been started because of the increased fat in her stool. PHYSICAL EXAMINATION: VIDEO EXAM: (if completed, performed via video enabled technology) GENERAL: alert and appropriate, in no distress and well-hydrated, well nourished IMAGIN04/21/2023 CT ABD/PEL W IVCON IMPRESSION: 1. Mild colitis, likely infectious or inflammatory. FINDINGS: Lower Thorax: No consolidations Liver: No masses. Gallbladder/Biliary: Cholecystectomy. No biliary ductal dilatation. Spleen: Stable splenic cystic lesion. Pancreas: Unremarkable. Adrenals: No nodules Kidneys: No suspicious masses. No hydronephrosis. Vasculature: No abdominal aortic aneurysm. GI Tract: Status post gastric bypass. Partially fluid-filled colon with mild underlying wall thickening. No evidence for obstruction or appendicitis. Pelvis: Hysterectomy. Underdistended bladder. Mesentery/Peritoneum/Retroperitoneum: No free air or fluid Lymph Nodes: No lymphadenopathy. Bones and soft tissues: No suspicious bone lesions. No acute findings. Plastic Boat Patcher (topogram) images: No additional findings. PERTINENT TESTIN04/23/2023 COLONOSCOPY Findings: The perianal and digital rectal examinations were normal. A few small-mouthed diverticula were found in the sigmoid colon. The exam was otherwise without abnormality. Biopsies for histology were taken with a cold forceps from the right colon, left colon and transverse colon for evaluation of microscopic colitis. Estimated blood loss was minimal. Impression: - Diverticulosis in the sigmoid colon. - The examination was otherwise normal. - Biopsies were taken with a cold forceps from the right colon, left colon and transverse colon for evaluation of microscopic colitis. PATHOLOGY: 04/23/2023 FINAL DIAGNOSIS A. Colon, biopsy: - Colonic mucosa with no significant pathologic changes. ASSESSMENT: Diarrhea, unknown cause. PLAN: We discussed 3 plans. The first is that if she is getting too much cramping then she can decrease from 2 pills of the Creon to 1 pill. She is taking the Creon appropriately, typically 15 to 20 minutes prior to eating. She should give the Creon at least 1 week before discontinuing the therapy. If atthe week she feels the Noah not helping she could stop the Creon and retry the bile acid sequestrant since previously we discontinued those because they were not helping but that was also during aC. difficile infection. She was referred by Dr. Fuentes to Dr. Adam Goddard for another opinion on her diarrhea. I look forward to seeing what his opinion is or any other further testing he may try or therapies he may try. There are 2 potential surgical options that may help. One would be a feeding tube in her bypassed stomach that could be used for hydration if needed. She would be open to this but I have suggested that she talk with Dr. Goddard first because of her diarrhea could be managed medically she may not need surgery. The other would be gastric bypass reversal which may not help with the diarrhea and usually causes weight regain. Medical Decision Making: Problems: Low: Stable chronic illness Data: Unique test result(s) reviewed: 3+ Risk: Moderate: Drug management Medical Decision Making Level: 4 - Moderate Sanford Ozuna MD documented in this encounterMet[facility]09-01-[facility] Note[facility] History of Present illness Narrative* Keysha Doherty APRN.CNP - 05/15/2023 11:03 AM EDT Scheduling: Clinical Triage Patient Name: Melina Díaz Patient was verified by: Name/Date of Triage process was used for: patient complaint of abdominal pain Symptoms: abdominal pain; states she is being referred to [facility] main from her local GI for epigastricpain with nausea and diarrhea. She is now having 15+ episodes of diarrhea daily. She has had upper and lower scopes with negative findings. Hx of gastric sleeve, done at with revisions ([facility]) due to ulcers. She is scheduled to follow up with her F bariatric surgeon this week also. After discussing with patient and chart review, the patient/bell attendant were instructed to schedule with GI Appointment was scheduled with Dr. Hung Doherty APRN.CNP May 15, 2023 11:03 AM documented in this encounterMetro[facility]08-30-2023 Miscellaneous Notes* Telephone Encounter - Jacey Hoffman - 05/13/2023 9:03 AM EDT Received office note from [facility], Dr. Jany Fuentes dated 05/11/2023. Please review thank you! documented in this encounterMetrohealth [facility]08-11-2023 Miscellaneous Notes* Telephone Encounter - Aubree Lopez RN - 04/24/2023 5:09 PM EDT I spoke to the patient and advised that Dr. Ozuna is deferring to gastroenterology for possible SIBO treatment. Patient asked * Telephone Encounter - Aubree Lopez RN - 04/23/2023 3:15 PM EDT I spoke to the patient and she states she had her colonoscopy today as she went into [facility] 04/21/2023 with abdominal pain and rectal bleeding. Patient states diverticulosis was found and biopsieswere taken. Patient states she is ready to begin treatment for SIBO and that Dr. Fuentes wanted her to see if Dr. Ozuna was ordering the medications. Patient states she also sent FMLA forms to the office to be completed. Aubree Lopez RN documented in this encounterMetrohealth [facility]08-09-2023 NoteHNO ID: [id number] Author: Niharika Panchal MD Service: Hospital Medicine Author Type: Physician Type: Progress Notes Filed: 04/22/2023 2:01 PM Note Text: DEPARTMENT OF HOSPITAL MEDICINE PROGRESS NOTE SERVICE DATE: 04/22/2023 SERVICE TIME: 1:49 PM Hospital Medicine/Primary Attending: Niharika Panchal MD NIGHT AND WEEKEND COVERAGE: MAGGY COVERAGE: Days: [phone], please contact via [employer] Nights: [phone] - floor: please page CC Hospitalist night cover [phone] - 4th floor: please page CC Hospitalist night cover [phone] - 5th floor: please page CC Hospitalist night cover [phone] Subjective INTERVAL HPI: patient with abdominal pain took 2 doses of dilaudid, brought to the attention of the providers possible opioid seeking behavior due to multiple visits to ER for abdominal pain. At this time we talk to her and we will collaborate with pain management on pain control. Current Facility-Administered Medications Medication Dose Route Frequency iv contrast (radiology procedure) INTRAVENOUS DIRECTED PRN diphenhydrAMINE 12.5 mg injection (BENADRYL) 12.5 mg INTRAVENOUS q 6 H PRN ALPRAZolam 0.5 mg tab(s) (XANAX) 0.5 mg ORAL AT BEDTIME PRN pantoprazole 40 mg injection (PROTONIX) 40 mg INTRAVENOUS BID AC (0600/1600) levothyroxine 50 mcg tab(s) (SYNTHROID) 50 mcg ORAL DAILY (6 AM) NaCl 0.9% iv flush bag 20 mL INTRAVENOUS PRN lactated ringers iv infusion 100 mL/hr INTRAVENOUS CONTINUOUS acetaminophen 650 mg tab(s) (TYLENOL) 650 mg ORAL q 6 H PRN prochlorperazine 5 mg injection (COMPAZINE) 5 mg INTRAVENOUS q 4 H PRN HYDROmorphone 0.2 mg injection (DILAUDID) 0.2 mg INTRAVENOUS q 4 H PRN polyethylene glycol 3350 238 g oral powder 238 g ORAL ONCE bisacodyl EC 10 mg tab(s) (DULCOLAX) 10 mg ORAL ONCE Objective PHYSICAL EXAM: BP 111/55 Pulse 81 Temp (Src) 98.1 (Oral) Resp 14 Ht 5' 8 (1.73m) Wt 195 lb 12.3 oz (88.8kg) SpO2 96% BMI 29.77 kg/(m2). O2 Therapy: Room Air Physical Exam Performed Awake, alert in no distress. Mucosa moist lungs clear to auscultation no crackles. Cardiac sounds rrr abdomen soft. Tender on 4 quadrants with no masses or rebounds. Bs are normal. No leg edema. Lines, Drains, and Airways None Reviewed lines and needs to be continued: REASONS: Intravenous fluids DATA: Diagnostic tests reviewed for today's visit: Most recent labs Most recent imaging Assessment/Plan Problem List Intractable abdominal pain (POA: Yes) Acquired hypothyroidism (POA: Yes) Diarrhea due to malabsorption (POA: Yes) Anxiety (POA: Yes) History of Gelacio-en-Y gastric bypass (POA: Yes) History of Clostridium difficile colitis (POA: Yes) HOSPITAL COURSE: J47 year old female presented with past medical history of conversion to Gelacio-en-Y gastric bypass (December 2021), lap revision of gastrojejunostomy and vagotomy for recurrent marginal ulcer (Jul 2022). EGD 04/09/2023-Normal examined jejunum. Biopsied. Gelacio-en-Y gastrojejunostomy with gastrojejunal anastomosis Bx characterized by healthy appearing mucosa. Chronic gastritis. Bx negative for H Pylori . Comes with recurrent abdominal pain and diarrhea for 3 weeks, initially 2 a day last 3 days 13 a day, while in preparation for colonoscopy. Principal Problem: Intractable abdominal pain Diarrhea due to medications History of Gelacio-en-Y gastric bypass History of Clostridium difficile colitis IV fluids CTAP with mild colitis Colonoscopy tomorrow and treat as clinically indicated. No ATB for now. For pain we will try to avoid opioids but patient allergic to NSAIDs, tramadol. We will call pain management to help in the management taking in consideration the possibility of overuse of opioids and withdrawal symptoms associated to stopping the use of them. On ER visits she gets amount of opioids and then gets DC home with few of them. Diarrhea due to malabsorption vs preparation combination for colonoscopy. Was 3 a day only now 13 a day in the setting of preparation. While in the hospital none. We will follow on that. Anxiety Keep home regimen. Medication and Non-Pharmacologic VTE Prophylaxis/Anticoagulants 04/22/23129 pneumatic compression stockings ([place], [place]) 04/22/23129 activity - mobilize patient ([place] VTE Prophylaxis: VTE prophylaxis appropriate Disposition: Home Plan of care discussed with Provider, RN, Patient Plan communicated to: N/A SIGNATURE: Niharika Panchal MD PATIENT NAME: Melina Díaz DATE: April 22, 2023 TIME: 1:49 [id number] NoteHNO ID: [id number] Author: Camilla Conklin RN Service: Care Management Author Type: Registered Nurse Type: Care Mgt Initial Assessment Filed: 04/22/2023 10:15 AM Note Text: CARE MANAGEMENT: ASSESSMENT AND DISCHARGE PLAN SERVICE DATE: April 22, 2023 SERVICE TIME: 10:14 AM PCP: Sean Ruiz DO Primary Contact: Extended Emergency Contact Information Primary Emergency Contact: ArjunShaw Mobile Relation: Spouse Admission Status: Observation Insurance Provider: [employer] PPO Discharge Planning requested by: Per Department Practice Potential Transition Plans Home Advance Directives Current Advance Directive: Health Care Power of Roofing Subcontractor In Chart: Yes Up To Date and Valid: Yes Current Living Arrangements and Support Lives with: Children, Spouse/significant other Type of Residence: Private Residence (House) Does the patient have to climb stairs at home?: Yes Support: Family members How do you manage to accomplish the following: Independent: Ambulation;Bathe/Shower;Meals/Meal Prep;Dress;Going to the bathroom;Medication Management;Transportation to appointments/community Current Services/Equipment Current Post-Acute Service(s): None Discharge Planning Patient Goal(s): Be able to go home, General wellness [place] of Choice Explained: [place] of Choice Given: No Reason Not Given: No placements necessary Are you interested in bedside delivery of your medications? No Discharge Planning Participant(s): Patient Patient/Family Comments: I haven't been able to work in three weeks due to this illness Caregiver Assessment: Caregiver is ready, willing and able to meet the patient's needs as recommended by the inter-professional team: No Caregiver needed Transport at Discharge: Transportation Arrangements: Car Needs Prior to Discharge: Needs Prior to Discharge: Procedure Procedure Needed: colonoscopy Post-Acute Discharge Plan: Met with patient at bedside. She is here with abdominal pain, nausea, vomiting. She is awaiting a colonoscopy tomorrow. She lives at home with spouse and 5 children. She is currently on short term disability and has not had an income. She has applied for help with school lunches and food stamps for the meantime. Spouse will transport her home at discharge. She is typically independent. Introduced role of CM and Transitional Care Management team. Will follow. SIGNATURE: Camilla Conklin RN PATIENT NAME: Melina Díaz DATE: April 22, 2023 TIME: 10:13 AM CONTACT #: [id number] NoteHNO ID: [id number] Author: Carmelo Underwood RT(R) Service: Radiology Author Type: Technologist Type: Progress Notes Filed: 04/21/2023 8:31 PM Note Text: Radiology Service Progress Note PATIENT NAME: Melina Díaz DATE OF SERVICE: April 21, 2023 TIME: 8:30 PM PATIENT IDENTITY VERIFICATION COMPLETED USING TWO (2) IDENTIFIERS: Name and Date of confirmed by patient verbally and Name and Date of confirmed by identification band. FALL SCREENING: Has the patient had 2 falls in the last year or 1 fall with injury or currently using an Ambulatory Assistive Device (Walker, Cane, Wheelchair, Crutches, etc.)? No PATIENT GENDER DATA: Female. status: : No status: NO. PATIENT RELEVANT IMPLANT DATA REVIEWED: Not Applicable RADIOLOGY DEPARTMENT: CT; Exam(s) Completed: Abdomen/Pelvis PERIPHERAL IV DATA: Site assessment: Clean,Dry and Intact, Site disposition Left in for next appointment SIGNED BY: RT Karo(R) April 21, 2023 8:30 [id number] Miscellaneous Notes* Telephone Encounter - Aubree Lopez RN - 04/13/2023 2:24 PM EDT Patient reports continued abdominal pain. Patient states she continues to have abdominal pain that causes. diaphoresis and shaking. Patient states she remains bloated and still also having the new left sided pain after eating. Patient states she was discharged without pain medication despite takingit while admitted. Patient states she is taking probiotics a Patient also states treating SIBO was discussed and wanted to follow up as she is only taking probiotics. Patient also states she has an appointment this week with Dr. Fuentes at [facility] this week to set up a colonoscopy. Aubree Lopez RN documented in this encounterMet[facility]29[facility] 04-10-2023 [facility]07-28-2023 [facility]07-28-2023 Instructions* Patient Instructions* Sanford Ozuna MD - 04/10/2023 3:01 PM EDT EXTENDED (2 day) Bowel Preparation Instructions for: Miralax-Gatorade Preparations IF YOU DO NOT FOLLOW THESE DIRECTIONS, YOUR COLONOSCOPY WILL BE CANCELLED. Frost Instructions: Your bowel must be empty so that your doctor can clearly view your colon. Follow all of the instructions in this handout EXACTLY as they are written. Do NOT eat any solid food the 2 days before your colonoscopy. Buy your bowel preparation at least 5 days before your colonoscopy. eight (8) Dulcolax laxative tablets containing 5mg of bisacodyl each (NOT Dulcolax stool softener) Two (2) 8.3oz. bottle Miralax (238 grams) or generic equivalent 4 x 32oz. Bottles of Gatorade (NOT RED) Diabetic Patients: Use G2 (Gatorade 2) TRANSPORTATION on the Day of Your Exam A responsible adult MUST be present with you at Check In prior to your colonoscopy and REMAIN in the endoscopy area until you are discharged. You are NOT ALLOWED to drive, take a taxi or bus, or leave the Endoscopy Center ALONE. If you do not have a responsible local company refrigerated truck driver (family member or friend) withyou to take you home, your exam cannot be done with sedation and will be cancelled. Please bring a list of all of your current medications, including any Hzgt-xal-Nftzrcb medications with you. Medications If you take insulin, diabetic medications or blood thinners such as Coumadin (warfarin), Plavix (clopidogrel), Ticlid (ticlopidine hydrochloride), Agrylin (anagrelide), Xarelto (Rivaroxaban), Pradaxa(Dabigatran), Eliquis (Apixaban), and Effient (Prasugrel). You MUST call the doctors who orders those medicines for instructions on altering the dosage before your colonoscopy. All other medications should be taken the day of the exam with a sip of water including ASPIRIN. Five (5) Days Before Your Colonoscopy Do NOT take medicines that stop diarrhea - such as Imodium, Kaopectate, or Pepto Bismol. Do NOT take fiber supplements - such as Metamucil, Citrucel, or Perdiem. Do NOT take products that contain iron - such as multi-vitamins (the label lists what is in the products). Do NOT eat high-fiber foods - such as popcorn, beans, seeds (flax, sunflower, quinoa), multigrain bread, nuts, salad/vegetables, or fresh and dried fruit. Bowel Preparation Instructions for: Miralax-Gatorade Preparations Two (2) Day Before Your Colonoscopy Only drink clear liquids the ENTIRE 2 DAYS before your colonoscopy. Do NOT eat any solid foods. Drink at least 8 ounces of clear liquids every hour after waking up. The clear liquids you can drink include: Clear Liquid (NO RED LIQUIDS) DO NOT DRINK Gatorade, Pedialyte or Powerade Clear broth or bouillon Coffee or tea (no milk or non-dairy creamer) Carbonated and non-carbonated soft drinks Nabeel-Aid or other fruit flavored drinks Strained fruit juices (no pulp) Jell-O, popsicles, hard candy Water Alcohol Milk or non-dairy creamers Noodles or vegetables in soup Juice with pulp Liquid you cannot see through Do not use tobacco/vaping products Mix 1/2 of Miralax bottle (119 grams) in each 32 ounces of Gatorade bottle until dissolved. Keep cool in the refrigerator. DO NOT ADD ICE. The bowel preparation solution will be consumed in two parts. Part 1 5:00 PM - Evening 2 days before your colonoscopy Take 4 Dulcolax tablets. 6 PM - Evening 2 days before your colonoscopy Drink 32 oz. of the mixed solution. Drink an 8 oz. glass of bowel preparation every 15 minutes for a total of 4 glasses. Fifteen (15) minutes later, drink an 8 oz. glass of of clear liquids every 15 minutes for a total of 2 glasses. You may continue to drink clear liquids till midnight. Part 2 8:00 AM - Morning before your colonoscopy Take 4 Dulcolax tablets. 9 AM - Morning before your colonoscopy Drink 32 oz. of the mixed solution. Drink an 8 oz. glass of bowel preparation every 15 minutes for a total of 4 glasses. Fifteen (15) minutes later, drink an 8 oz. glass of of clear liquids every 15 minutes for a total of 2 glasses. Continue to drink clear liquids through the day. 5:00 PM - Evening before your colonoscopy Take 4 Dulcolax tablets. 6 PM - Evening before your colonoscopy Drink 32 oz. of the mixed solution. Drink an 8 oz. glass of bowel preparation every 15 minutes for a total of 4 glasses. Fifteen (15) minutes later, drink an 8 oz. glass of of clear liquids every 15 minutes for a total of 2 glasses. You may continue to drink clear liquids till midnight. Part 3 On the day of your colonoscopy you may drink clear liquids up to (three) 3 hours prior to procedure. 4 1/2 hours before your colonoscopy Take another 32 oz. bottle of mixed solution. Drink an 8 oz. glass of bowel prep every 15 minutes for a total of 4 glasses. Fifteen (15) minutes later, drink an 8 oz. glass of clear liquids every 15 minutes for a total of 2glasses. You may continue to drink clear liquids up to (three) 3 hours before your exam. documented in this encounterMetro[facility]07-28-2023 Miscellaneous Notes* Telephone Encounter - Frances Boo APRN.CNP - 04/10/2023 12:[address] Ozuna, can you please forward to your bell attendant to arrange repeat colonoscopy in 4 months for screening purposes and because the bowel preparation was sub-optimal. Needs 2 day prep using Miralax prep. Per Dr. Shay to arrange with you. Order attached for colon. Thank you, ALEXEI Daniels documented in this encounterMetrohealth [facility]07-28-2023 [facility] NoteWestwood Lodge [id number] NoteWestwood Lodge [id number] Note [facility] [id number] [facility]07-24-2023 History of Present illness Narrative* Amanda Herman CT - 04/06/2023 8:36 AM EDT LACTULOSE HYDROGEN BREATH TEST FOR SMALL BOWEL BACTERIAL OVERGROWTH Date: April 06, 2023 Referring Physician: Sanford Ozuna MD Chief Complaint Abdominal Pain Bloating Flatulence/Gas Diarrhea Symptoms prior to start of study: Abdominal pain, Diarrhea, Bloating, Flatulence/Gas [] 4 week restrictions [] 72 hour restrictions [] 12 hour fasting [] Followed the special diet Baseline Hydrogen PPM: 1 Methane PPM: 0 MEGGAN Quintana Lactulose 15mL given at: 1130am Start Time:1135am 20 minutes Hydrogen PPM: 2 Methane PPM: [address] 40 minutes Hydrogen PPM: 2 Methane PPM: 0 MEGGAN Quintana 1 hour Hydrogen PPM: 2 Methane PPM: 0 Nikkiya Batsheva, CT 1 hour 20 minutes Hydrogen PPM: 1 Methane PPM: 1 Terrimarc Batsheva, CT 1 hour, 40 minutes Hydrogen PPM: 2 Methane PPM: 0 Amanda Herman, CT 2 hours Hydrogen PPM: 2 Methane PPM: 0 Darekcassandra Batsheva, CT 2 hours, 20 minutes Hydrogen PPM: 2 Methane PPM: 0 Terrimarc Herman, CT 2 hours, 40 minutes Hydrogen PPM: 2 Methane PPM: 0 Terriya Batsheva, CT 3 hours Hydrogen PPM: 1 Methane PPM: 0 Amanda Herman, CT Symptoms developed during the study period: None Patient Results Preliminary Test Results (not given to patient): Pending Amanda Herman CT documented in this encounterMetrohealth [facility]07-20-2023 [facility]07-[facility] History of Present illness Narrative* Sanford Ozuna MD - 04/02/2023 9:15 AM EDT VIRTUAL VISIT PROGRESS NOTE This is a virtual visit using [employer] video visit. It required patient-provider interaction for themedical decision making as documented below. I have communicated my name and active licensure. The patient's identity and physical location wereverified at the time of this visit. Either the patient or their legal security systems sales representative has been informed of the risks and benefits of -- and alternatives to -- treatment through a remote evaluation andconsents to proceed with the evaluation remotely. Melina Díaz is a 47 year old female seen for diarrhea. She initially after surgery with me haddiarrhea unfortunately due to C. difficile colitis which was successfully treated. She on her own tried Imodium which had no effect whatsoever and also eliminating milk and eliminating carbohydrates or at least severely limiting them with no effect. Because of her history we tested for C. difficileand that was negative. We tried a empiric trial of colesevelam starting 03/28/2023 because of her history of vagotomy and this has had no effect. The diarrhea is worse in the morning and improves to the day. It is not secondary to eating and hasnot responded to the above dietary manipulations. It is associated with a bloating and cramping sensation. She describes the stool effluent as extremely foul-smelling, and very different smelling from her C. difficile diarrhea that she has had in the past. PHYSICAL EXAMINATION: VIDEO EXAM: (if completed, performed via video enabled technology) GENERAL: alert and appropriate, in no distress and well-hydrated, well nourished ASSESSMENT: (Z98.84) Gastric bypass status for obesity (primary encounter diagnosis) (D50.9) Iron deficiency anemia, unspecified iron deficiency anemia type (R19.7) Diarrhea, unspecified type LABS: Component Latest Ref Rng & Units 03/27/2023 C. difficile PCR Negative for C. difficile toxin by PCR Negative for C. difficile toxin by PCR PLAN: Regarding her diarrhea, we have ruled out C. difficile and I think we have pretty well ruled out post vagotomy diarrhea. I am most suspicious for small bowel bacterial overgrowth based on her symptompattern and so I am going to be testing with a lactulose breath test. I am also going to test for parasites with the EIA because of her lack of foreign travel and fecal fat to assess for malabsorption. I am also ordering a panel of vitamin and nutritional labs as that she is due for these from her gastric bypass history. She has a history of iron deficiency anemia as well that we will assess. If these testings are revealing of a diagnosis then we will work on treating them. If not, I discussed with her that I would refer her to gastroenterology for further work-ups for more esoteric causes. Medical Decision Making: Problems: Moderate: New problem with uncertain prognosis and 2+ stable chronic illnesses Data: Unique test result(s) reviewed: 1 Unique test(s) ordered: 3+ Risk: Low: Low risk from testing/treatment Medical Decision Making Level: 4 - Moderate Sanford Ozuna MD documented in this encounterMetrohealth [facility]07-15-2023 Miscellaneous Notes* Telephone Encounter - Sanford Ozuna MD - 03/28/2023 11:08 AM EDT C diff negative, bile acid sequestrant ordered to treat diarrhea. Sanford Ozuna MD documented in this encounterMetrohealth [facility]07-14-2023 Miscellaneous Notes* Telephone Encounter - uAbree Lopez RN - 03/27/2023 12:[address] Ozuna c-diff should be tested and plan will be based on the results. Patient notified of Dr. Ozuna's recommendations and stated agreement. Aubree Lopez RN * Telephone Encounter - Gretel Roper APRN.CNP - 03/27/2023 8:38 AM EDT Lab order signed Gretel Roper APRN.CNP * Telephone Encounter - Aubree Lopez RN - 03/26/2023 4:03 PM EDT Diarrhea more than 10 times a day, worse in middle of night. Also having nausea now. Now states sheis having difficulty functioning. Does not feel like dumping syndrome, happening after eating all of the time. Imodium not helping. Patient states the type of food does not seem to matter at this time. No fevers, chills, no blood noted in stool. Does have excess gas as well. Nothing is improving the diarrhea. Patient with occasional sharp, shooting pain mid abdominal pain, self resolved. Aubree Lopez RN documented in this encounterMetrohealth [facility] Center03-06-2023 NoteSt[facility]03-06-2023 History of Present illness Narrative* Sanford Ozuna MD - 11/17/2022 3:40 PM EST This is a virtual visit using HIPAA compliant video platform. It required patient-provider interaction for the medical decision making as documented below. Assessment Postoperative Visit Date of Surgery: 07/29/2022 Surgery: Laparoscopic revision of gastrojejunostomy with Thoracic procedures with Dr. Griffin: Right robotic-assisted vagotomy. Right robotic-assisted lower lobe wedge resection x 1. Right regional intercostal nerve block, interspaces 5 - 9. (Exparel). Right cryoanalgesia procedure, interspaces 5 - 7. (Total time 10 minutes). Right chest tube placement x 1 (#[id number]-Kazakh) Post Op Diagnosis: Marginal ulcer; history of Gelacio-en-Y gastric bypass Surgical Pathology: 08/01/2022 A. Vagus nerve, biopsy: - Unremarkable segments of nerve. B. Posterior vagus nerve, biopsy: - Unremarkable segment of nerve. C. Right lung, lower lobe, wedge resection: - Lung parenchyma with focal foreign body giant cell reaction (see comment). D. Gastrojejunal anastomosis, excision: - Segments of small bowel and stomach with ulcer adjacent to anastomosis, consistent with the clinical history of marginal ulcer. - Separate segment of small bowel with no diagnostic abnormality. Subjective: Diarrhea has resolved. She is eating without any restriction on texture at a GI soft level of food texture. Physical examination: She appears well on video. Pertinent Testin09/17/2022 EGD Findings: The esophagus was normal. Evidence of a Gelacio-en-Y gastrojejunostomy was found. The gastrojejunal anastomosis was characterized by healthy appearing mucosa and the presence of no stomal ulceration. This was traversed. The veran-yh-nnqxtxt limb was characterized by healthy appearing mucosa. Impression: - Normal esophagus. - Gelacio-en-Y gastrojejunostomy with gastrojejunal anastomosis characterized by healthy appearing mucosa and no stomal ulceration. - No specimens collected. Recommendation: - Discharge patient to home. - Resume previous diet. - Continue present medications. - Return to Bariatric clinic as previously scheduled. Impression and plan: She has done well after her gastric bypass revision and vagotomy. She should increase her dietary texture to stay full longer. She will follow up in about 3 months with labs. Sanford Ozuna MD documented in this encounterMetrohealth [facility] Heights [facility] Center01-15-2023 NoteFaSpaulding Hospital [facility] 09-26-2022 Miscellaneous Notes* Telephone Encounter - Aubree Lopez RN - 09/26/2022 11:40 AM EST I spoke to the patient and she states she is no having fevers along with the weakness, pain, nauseaand diarrhea.I advised that since infectious disease is unable to see her until Thursday09/29/22 and because she is feeling so poorly that Dr. Ozuna recommends that she go to the emergency departmenttoday as she needs more care than can be given outpatient. Patient states she understands and will discuss it with her when he comes home. Patient expressed frustration with being sock for solong and spending so much time in the hospital. Emotional support provided. Aubree Lopez RN * Telephone Encounter - Aubree Lopez RN - 09/24/2022 4:30 PM EST I spoke to the patient and advised that we are trying to get her in to see Dr. Garcia with infectious disease. I also advised the patient that if her weakness worsens, she passes out or there are any new or concerning symptoms. Patient stated understanding and had no further questions. Aubree Lopez RN * Telephone Encounter - Aubree Lopez RN - 09/24/2022 2:[address] Ozuna I spoke to the store administrative assistant for Dr. Garcia to get patient scheduled for an ID follow up TRI due to her symptoms. She states she will send a message and schedule the appointment with the patient once she gets a response from Dr. Garcia. Aubree Lopez RN * Telephone Encounter - Aubree Lopez RN - 09/24/2022 9:57 AM EST Patient states since she was discharged from the hospital she continues to have 10-15 episodes of diarrhea a day, worsening abdominal pain and cramping especially when she eats, continued nausea, increased weakness and occasional palpitations. Patient states she spends the majority of the day in bed because of her symptoms. Aubree Lopez RN documented in this encounterMetrohealth [facility] Center01-09-2023 History of Present illness Narrative* Regina Fabian, JOSE.MANAGER 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 - 09/22/2022 7:30 AM EST [facility] VISIT This visit is a Virtual MyChart video visit encounter which required patient- provider interaction for the medical decision making as documented below. Persons Present: patient (Elements copied from the notes of other providers, have been reviewed and updated where appropriate, and all reflect current assessment and medical decision making during today's encounter, 09/22/2022.) Melina Díaz has consented to this distance health encounter. INTERVAL HISTORY: Ms. Melina Díaz presents for follow up of anemia. She was admitted to the hospital on 09/15/2022-09/21/2022 for abdominal pain, nausea, vomiting, C. diff diarrhea, and oral intake intolerance for 24 hours before admission. She received Venofer 300 mg IV times 4 doses so far. She isscheduled to have her fifth dose this week. Her diet is improving. She is able to eat more. She hasa bad headache and is nauseated today. She takes IV ondansetron for relief. Symptoms: Fatigue: Yes Pica: No SOB: She still has episodes Chest Pain/Palpitations: She still has palpitations but it they less now Lightheadedness: Yes, improved Dizziness: Yes, improved Headache: Yes Restless Legs: Yes, slightly better Bleeding: No Chills: No Difficulty concentrating/brain fog: No HISTORY OF THE PRESENT ILLNESS: Melina Díaz is a 46 year old female presenting to Hematology clinic today for further evaluationand treatment of iron deficiency anemia. She has a PMH of gastric sleeve surgery, nausea and vomiting, malabsorption, hypothyroidism, She had gastric sleeve 10 years ago, then gastric bypass revisionto RY, has been on TPN, another revision on 07/29/22. PICC line since December but removed with recent surgery. She has been having a hard time keeping food down during this time, thus, TPN. She did receive small IV iron doses during recent hospitalization. Iron studies drawn prior to surgery consistent with iron deficiency, but ferritin not checked. 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 She underwent a planned laparoscopic revision of GJ and trans-thoracic vagotomy (robotic, right-sided approach) on 07/29/2022. Symptoms/History Related to Anemia: Fatigue: Yes Pica: Yes, ice SOB: Yes with exertion Chest Pain/Palpitations: Yes, palpitations Lightheadedness: Yes Dizziness: Yes Headache: Yes Brittle hair/nails: Yes, hair falling out Restless Legs: Yes, leg cramps Diet: 1 meal per day, having a hard time keeping down foods, liquids only, ensure clear or boost clear Bleeding: No Chills: No Difficulty concentrating/brain fog: Yes History of anemia: Yes Oral Iron History: No, haven't taken in past, cannot keep down multivitamin History Blood Transfusions: No History of Intravenous Iron infusions: Yes Family History of Anemia/Blood Disorders: Yes, grandmother but unsure what Alcohol/Drug Use: No History of Pregnancies: Yes, 3 sons, 1st son preeclampsia, 2nd emergency c- section due to low BP, 3rd Prior Hematology Consult in Past or Bone Marrow Biopsy: No History of Blood Donation: No Absorption Concerns/Gastric Surgery/Celiac Disease: Yes, gastric sleeve with revision and ulcer on surgical site HISTORY REVIEWED (electronic chart updated): - medical history - medications - allergies Data Reviewed: Most recent labs and imaging results. Component Latest Ref Rng & Units 07/22/2022 08/02/2022 08/04/2022 08/11/2022 08/11/2022 08/15/2022 09/12/2022 09/15/2022 09/18/2022 3:49 PM 4:58 PM WBC 3.70 - 11.00 k/uL 5.17 6.15 7.85 7.51 3.73 5.29 6.34 4.31 RBC 3.90 - 5.20 m/uL 2.84 (L) 2.83 (L) 3.39 (L) 3.28 (L) 3.08 (L) 4.26 4.19 3.99 Hemoglobin 11.5 - 15.5 g/dL 8.1 (L) 8.2 (L) 9.8 (L) 9.5 (L) 8.8 (L) 12.3 12.3 11.5 Hematocrit 36.0 - 46.0 % 25.2 (L) 25.4 (L) 30.4 (L) 29.2 (L) 27.4 (L) 38.3 37.2 35.7 (L) MCV 80.0 - 100.0 fL 88.7 89.8 89.7 89.0 89.0 89.9 88.8 89.5 MCH 26.0 - 34.0 pg 28.5 29.0 28.9 29.0 28.6 28.9 29.4 28.8 MCHC 30.5 - 36.0 g/dL 32.1 32.3 32.2 32.5 32.1 32.1 33.1 32.2 RDW-CV 11.5 - 15.0 % 13.6 13.9 14.4 14.2 14.8 15.3 (H) 15.2 (H) 14.8 Platelet Count 150 - 400 k/uL 197 230 446 (H) 414 (H) 333 257 261 199 MPV 9.0 - 12.7 fL 10.2 10.0 9.6 9.3 9.4 10.0 10.4 10.3 Neut% % 53.9 59.7 64.1 44.5 48.2 Abs Neut (ANC) 1.45 - 7.50 k/uL 3.32 4.69 4.81 2.35 3.06 Lymph% % 30.1 29.7 27.0 40.6 41.0 Abs Lymph 1.00 - 4.00 k/uL 1.85 2.33 2.03 2.15 2.60 Chilton% % 12.2 7.4 5.7 11.2 7.6 Abs [place]ilton <0.87 k/uL 0.75 0.58 0.43 0.59 0.48 Eosin% % 2.8 2.0 2.0 2.6 1.9 Abs Eosin <0.46 k/uL 0.17 0.16 0.15 0.14 0.12 Baso% % 0.5 0.9 0.8 1.1 1.1 Abs Baso <0.11 k/uL 0.03 0.07 0.06 0.06 0.07 Immature Gran % % 0.5 0.3 0.4 0.0 0.2 IMMATURE GRANS (ABS) <0.10 k/uL 0.03 <0.03 0.03 <0.03 <0.03 NRBC /100 WBC 0.0 0.0 0.0 0.0 0.0 Absolute nRBC <0.01 k/uL <0.01 <0.01 <0.01 <0.01 <0.01 <0.01 <0.01 <0.01 DTYPE Auto Auto Auto Auto Auto Protein, Total 6.3 - 8.0 g/dL 5.5 (L) 6.5 Albumin 3.9 - 4.9 g/dL 3.1 (L) 4.0 Calcium 8.5 - 10.2 mg/dL 9.1 Bilirubin, Total 0.2 - 1.3 mg/dL 0.2 0.2 Alkaline Phosphatase 34 - 123 U/L 72 87 AST 13 - 35 U/L 20 23 ALT 7 - 38 U/L 23 20 Glucose 74 - 99 mg/dL 109 (H) BUN 7 - 21 mg/dL 9 Creatinine 0.58 - 0.96 mg/dL 0.53 (L) Sodium 136 - 144 mmol/L 140 Potassium 3.7 - 5.1 mmol/L 3.8 Chloride 97 - 105 mmol/L 104 CO2 22 - 30 mmol/L 26 Anion Gap 9 - 18 mmol/L 10 eGFR >=60 mL/min/1.73m 116 Bilirubin, Conjug <0.2 mg/dL <0.2 Iron 41 - 186 ug/dL 24 (L) 37 (L) TIBC 232 - 386 ug/dL 346 291 Transferrin Saturation 15.0 - 57.0 % 6.9 (L) 12.7 (L) Retic % 0.4 - 2.0 % 2.0 Abs Retic 0.018 - 0.100 M/uL 0.069 Vitamin B12 232 - 1,245 pg/mL 731 Folate >4.7 ng/mL 17.5 CRP <0.9 mg/dL 2.3 (H) Ferritin 14.7 - 205.1 ng/mL 310.5 (H) Vitamin B6, Plasma 20.0 - 125.0 nmol/L 27.2 Vitamin B1 (TDP), Whole Blood 84.3 - 213.3 nmol/L 194.6 TSH 0.270 - 4.200 mIU/L 0.805 EGD on 09/17/2022: Impression: - Normal esophagus. - Gelacio-en-Y gastrojejunostomy with gastrojejunal anastomosis characterized by healthy appearing mucosa and no stomal ulceration. - No specimens collected. REVIEW OF SYSTEMS: As noted in HPI VIDEO PHYSICAL EXAMINATION: (if done, performed via video enabled technology) GENERAL: alert and appropriate, in no distress and well-hydrated, well nourished RESPIRATORY: breathing non-labored ASSESSMENT: Ms. Melina Díaz presents for follow up of anemia. She discharged from the hospital yesterday. Her hgb is normal. She has had slight improvement in her symptoms. No pica. She is scheduled to receive her 5th dose of Venofer this week. PLAN: -Labs for CBC and fasting iron studies on 11/10/2022. -Follow up visit with Rip Youssef APRN.CNP on 11/11/2022 -Encouraged to call if her symptoms worsen before her next Hematology appointment. Total time of this visit, including time spent [id number] with the patient and/or via video/audio, and also in preparing for today's visit for medical decision making, documentation, and discussionwith providers involved with the care of the patient was 19 minutes. Greater than 50% of total timewas spent in counseling and/or coordination of care. Regina Fabian APRN.CNP CC: Rip Youssef APRN.CNP documented in this encounterMet[facility]01[facility] 09-20-2022 [facility]01-07-2023 NoteHNO ID: [id number] Author: Cha Madrigal RN Service: ? Author Type: Registered Nurse Type: Nursing Progress Note Filed: 09/20/2022 6:58 AM Note Text: Daily Note: 2000: Measuring hats placed in toilet for accurate IANDOs. 0700: No bms over night.[facility] [id number] NoteHNO ID: [id number] Author: Destiney Stuart RN Service: ? Author Type: Registered Nurse Type: Nursing Progress Note Filed: 09/19/2022 6:50 PM Note Text: Other: States,I vomited four times just now.Was not seen by staff.Zofran was given.Will reassess.[facility] HospitalRwtlhdmb18-11-3601 Miscellaneous Notes* Telephone Encounter - Aubree Lopez RN - 09/19/2022 10:56 AM EST Patient called and requesting refills of vitamin D3 and vitamin B complex. Aubree Lopez RN documented in this encounterMetro[facility]01-06-2023 [facility] 09-18-2022 Miscellaneous Notes* Telephone Encounter - Aubree Lopez RN - 09/18/2022 9:05 AM EST [facility] requested additional information to process the extension of leave. Medical records sent as requested. Patient with a signed medical release form. Aubree Lopez RN documented in this encounterMetro[facility]01-05-2023 [facility] 09-17-2022 NoteHNO ID: [id number] Author: Bettye Saba RN Service: ? Author Type: Registered Nurse Type: Nursing Progress Note Filed: 09/17/2022 2:32 PM Note Text: Dr Ozuna at bedside speaking with pt, pt informed that she will have a GI soft diet orderedWestwood Lodge [id number] [facility]01-03-2023 NoteWestwood Lodge [id number] Miscellaneous Notes* Telephone Encounter - Aubree Lopez RN - 09/12/2022 10:34 AM EST I spoke to Kate at [facility] and clarified the PICC line is to stay in place until 09/26/2022 and that orders were sent for IV Zofran and PICC line supplies. Aubree Lopez RN * Telephone Encounter - Aubree Lopez RN - 09/11/2022 10:24 AM EST I spoke to the patient and advised that Dr. Ozuna has ordered Questran for her diarrhea as well as a TSH. Patient stated understanding and had no further questions. Aubree Lopez RN * Telephone Encounter - Aubree Lopez RN - 09/10/2022 3:13 PM EST Patient called and wants her PICC line dressing and lab draws to be done at the [facility] so she can stop home health care. PICC to be discontinued after the 09/25/2022 iron infusion. Patient states her diarrhea has not improved and she continues to have 10+ episodes of diarrhea a day. Patient states she has some nausea with her diarrhea and is asking for a refill of the IV Zofran. 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 Aubree Lopez RN documented in this encounterMetrohealth [facility]12-22-2022 Miscellaneous Notes* Telephone Encounter - Aubree Lopez RN - 09/04/2022 3:22 PM EST Patient aware of C-Diff lab order and will submit a sample. Aubree Lopez RN * Telephone Encounter - Aubree Lopez RN - 09/03/2022 1:35 PM EST Patient states she has diarrhea 10-20 times a day with no relationship to when or what she eats. Patient states this started when after beginning the IV antibiotics but completed those a week ago andthe diarrhea has continued. Patient states otherwise she is feeling improved. Patient states she has tried Imodium but only 2 doses without much improvement. Per. Dr. Ozuna the patient may use Imodium. I reviewed the dosing instructions with the patient and encouraged her to use per package instructions to see if the diarrhea will respond. Patient asked if a repeat c-diff would be appropriate. Patient states she was taking probiotics while on the antibiotics and is now eating daily yogurt. Aubree Lopez RN documented in this encounterMetrohealth [facility]12-16-2022 History of Present illness Narrative* KIRA Garza - 08/29/2022 1:37 PM EST Patient appears on the [facility] First Time Treatment Report for a non-oncology treatment. No psychosocial assessment indicated. JOSE MANUEL Garza documented in this encounterMetrohealth Cleveland [facility] Center12-16-2022 NoteWest[facility] Hospital 08-29-2022 History of Present illness Narrative* Foreign Monterroso PA-C - 08/29/2022 11:30 AM EST Images from the original note were not included. OUTPATIENT FOLLOW UP CARDIOTHORACIC SURGERY NAME: Melina Díaz DATE OF VISIT: 08/29/22 Date of Operation: July 29, 2022 HISTORY OF PRESENT ILLNESS: This is a 46 year old female with PMHx of Jarred Ulcers s/p gastrojejunostomy who returns for routine follow up today. Please see previous notes for details. She underwent a combo case with Dr. Griffin and Dr. Ozuna. We performed a right robotic-assisted vagotomy, rightlower lobe wedge resection x 1, right regional intercostal nerve block of interspaces 5 - 9 (Exparel), and right cryoanalgesia procedure of interspaces 5 - 7. The patient was returned to a supine position and Dr. Ozuna performed a laparoscopic revision of gastrojejunostomy. Of note, pt returned to ED on 08/11/22 with abdominal wall and pelvic abscesses on POD#14 for which she had a bedside I&amp ;D and IV abx. She was subsequently transferred to for evaluation by general surgery team discharged 2 days later. Today she states she is doing well. Her primary complaint is numbness in her right breast with associated pain and burning. She is having minimal flank pain and no abdominal pain. She denies any other issues or problems since hospital discharge. Specifically, she denies any shortness of breath, dyspnea, productive cough, chest pain, fevers, nausea, vomiting, wound erythema or wound drainage. Painis controlled with the use of oxycodone and tylenol. She is moving her bowels regularly but describes diarrhea. She is eating well without dysphagia. MEDICATIONS: As noted in electronic medical record. ALLERGIES: As noted in electronic medical record. 08/29/22 1134 BP: 135/83 Pulse: 89 SpO2: 98% Weight: 93 kg (205 lb) Height: 172.7 cm (5' 8 ) PHYSICAL EXAMINATION: On exam, she is a well developed, well nourished, ambulatory female in no apparent distress. Vital signs are stable. She is breathing comfortably on room air with a saturation of 98% . Lung sounds are CTAB. Heart rate regular without appreciable murmur, rub or gallop. Her right sided surgical incisions are healing well. Extremities are warm without peripheral edema. IMAGINV CXR 08/29/22 No radiographic abnormalities, to my read. Formal read pending IMPRESSION & PLAN: Ms. Melina Díaz is a 46 year old female status post right robotic-assisted vagotomy, right lower lobe wedge resection x 1, right regional intercostal nerve block of interspaces 5 - 9 (Exparel), and right cryoanalgesia procedure of interspaces 5 - [address] Ozuna who performed a laparoscopic revision of gastrojejunostomy on 07/29/22. 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 She has a gabapentin allergy which limits our ability to treat this type of pain. I ordered zanaflex which may provide some relief and improve her pain at night for better sleep. Follow up with Thoracic Surgery PRN Foreign Monterroso PA-C Thoracic Surgery [id number] DATE: August 29, 2022 TIME: 1:57 PM documented in this encounterMetrohealth [facility]12-16-2022 History of Present illness Narrative* Ghada Pineda RT(R) - 08/29/2022 10:40 AM EST Radiology Service Progress Note PATIENT NAME: Melina Díaz DATE OF SERVICE: August 29, 2022 TIME: 10:08 AM PATIENT IDENTITY VERIFICATION COMPLETED USING TWO (2) IDENTIFIERS: Name and Date of confirmedby patient verbally. FALL SCREENING: Has the patient had 2 falls in the last year or 1 fall with injury or currently using an Ambulatory Assistive Device (Walker, Cane, Wheelchair, Crutches, etc.)? No PATIENT GENDER DATA: Female. status: : No status: NO. PATIENT RELEVANT IMPLANT DATA REVIEWED: Not Applicable RADIOLOGY DEPARTMENT: General X-ray: Exam(s) Completed: Chest X-Ray PERIPHERAL IV DATA: Not applicable SIGNED BY: SABRINA Hayden) August 29, 2022 10:08 AM documented in this encounterMetrohealth [facility] Center12-06-2022 Miscellaneous Notes* Telephone Encounter - Shruti Feliz LPN - 08/19/2022 2:07 PM EST See previous phone message documented in this [facility]12-06-2022 Miscellaneous Notes* Telephone Encounter - Shruti Feliz LPN - 08/19/2022 1:41 PM EST See previous message. * Telephone Encounter - Aubree Lopez RN - 08/19/2022 1:11 PM EST Patient called and states she has been out of pain medication x 5 days and is very uncomfortable. Patient advised that liquid oxycodone was approved by insurance however the pharmacy was unable to fill as the prescription was cancelled. Patient states she has been waiting for pain management to get approval for a substitute for the medication they ordered but has not received an update and does not know what the current status is. I advised that I would notify Dr. Echeverria's office of her concerns and current pain. Aubree Lopez RN documented in this encounterMetrohealth [facility] Center12-05-2022 Miscellaneous Notes* Telephone Encounter - Joyce Medina - 08/18/2022 2:18 PM EST Patient does not have a cancer dx (Anemia), nor is the patient on an oncology regimen. No navigation services needed at this time. (1st Time Treatment Report) documented in this encounterMetrohealth [facility] Center12-05-2022 Miscellaneous Notes* Telephone Encounter - Aubree Lopez RN - 08/18/2022 2:09 PM EST Patient left a message stating a prior authorization was needed for her pain medication (Oxycodone liquid 5mg/5ml). I started the PA on CoverMyMeds with the provided frost then called the insurance company per the instructions. The completed PA form was sent to to [facility] with office notes and labs per request. Patient notified that PA was submitted. Aubree Lopez RN documented in this encounterMetrohealth [facility] Center12-05-2022 Miscellaneous Notes* Telephone Encounter - Shruti Feliz LPN - 08/18/2022 1:21 PM EST Left voice mail for patient to clarify why she is taking oxycodone. Patient cannot take pain medications from two providers. * Telephone Encounter - Daniela Ford LPN - 08/18/2022 11:58 AM EST Called [facility] pharmacist and spoke with her regarding patient. Pharmacist states patient insurance will not cover oxycodone myristate (Xtampza ER) 9mg has to be changed to a formulary medicaton. She did not speak with the [facility] nurse she spoke with someone from [facility] office regarding a pre auth for liquid oxycodone this am. * Telephone Encounter - Shruti Fleiz LPN - 08/18/2022 9:18 AM EST Spoke with pharmacy they just recently spoke with [place] nurse. * Telephone Encounter - Shruti Feliz LPN - 08/18/2022 8:48 AM EST Once [facility] opens we will need to get pre-auth information. documented in this encounterMetrohealth [facility] Center12-05-2022 Miscellaneous Notes* Telephone Encounter - Shruti Feliz LPN - 08/18/2022 8:15 AM EST We will need to call pharmacy for pre-auth information documented in this encounterMetrohealth [facility] Center12-02-2022 [facility] 08-15-2022 NoteWestwood Lodge [id number] NoteHNO ID: [id number] Author: Caro Polk RN Service: Nursing Author Type: Registered Nurse Type: Nursing Progress Note Filed: 08/13/2022 10:26 PM Note Text: Other: Flagyl finished prior to transport to [facility]. All questions answered.[facility] InstituteYbknfylp87-64-7700 NoteHNO ID: [id number] Author: Arnold Johnson MD Service: Hospital Medicine Author Type: Physician Type: Progress Notes Filed: 08/13/2022 1:38 PM Note Text: DEPARTMENT OF HOSPITAL MEDICINE PROGRESS NOTE SERVICE DATE: 08/13/2022 SERVICE TIME: 1:27 PM Hospital Medicine/Primary Attending: Arnold Johnson MD NIGHT AND WEEKEND COVERAGE: [place] COVERAGE: Days: [phone], please contact via [employer] Nights: [phone] - 3rd floor: please page CC Hospitalist night cover [phone] - 4th floor: please page CC Hospitalist night cover [phone] - 5th floor: please page Hospitalist night cover [phone] Subjective INTERVAL HPI: Patient seen and examined. She is feeling much better and her pain is better controlled. Complains of feeling fullness in the area and also complains about athlete's foot between her toes. No pain in the abdominal wall at the site of her IANDD. Denies any other complaints. Current Facility-Administered Medications Medication Dose Route Frequency NaCl 0.9% iv flush bag 20 mL INTRAVENOUS PRN ALPRAZolam 0.5 mg tab(s) (XANAX) 0.5 mg ORAL AT BEDTIME PRN dextroamphetamine-amphetamine 20 mg tab(s) (ADDERALL) 20 mg ORAL BID lactobacillus rhamnosus 10 billion cell (CULTURELLE) capsule 1 capsule ORAL DAILY senna-docusate 8.6-50 mg 1 tablet (SENNA-S) 1 tablet ORAL BID pantoprazole DR 40 mg tab(s) (PROTONIX) 40 mg ORAL DAILY (6 AM) venlafaxine 12.5 mg tab(s) (EFFEXOR) 12.5 mg ORAL DAILY methocarbamol 750 mg tab(s) (ROBAXIN) 750 mg ORAL TID levothyroxine 50 mcg tab(s) (SYNTHROID) 50 mcg ORAL DAILY (6 AM) sodium chloride 0.9 % (flush) 3-5 mL (BD POSIFLUSH) 3-5 mL INTRAVENOUS q 12 H NaCl 0.9% iv infusion 100 mL/hr INTRAVENOUS CONTINUOUS prochlorperazine 10 mg injection (COMPAZINE) 10 mg INTRAVENOUS q 6 H PRN vancomycin 1.5 g in D5W 250 mL (VANCOCIN) 1.5 g INTRAVENOUS q 12 HR vancomycin dosing and monitoring per pharmacy OTHER As Directed cefTRIAXone 2 g in D5W 100 mL Vial-Bag (ROCEPHIN) 2 g INTRAVENOUS q 24 H metroNIDAZOLE iv piggyback 500 mg in NaCl (iso-osmotic) 100 mL (FLAGYL) 500 mg INTRAVENOUS q 8 H ferric gluconate 125 mg in NaCl 0.9% 100 mL (FERRLECIT) 125 mg INTRAVENOUS DAILY AT 6 PM therapeutic multivitamin-minerals tablet (THERA-M PLUS) 1 tablet ORAL DAILY oxyCODONE IR 5-10 mg tab(s) (ROXICODONE) 5-10 mg ORAL q 4 H PRN acetaminophen 650 mg tab(s) (TYLENOL) 650 mg ORAL q 6 H PRN diphenhydrAMINE 25 mg (BENADRYL) 25 mg ORAL q 6 H PRN ketoconazole 2 % cream (NIZORAL) TOPICAL BID Objective PHYSICAL EXAM: BP 116/70 Pulse 80 Temp (Src) 98.8 (Oral) Resp 18 Ht 5' 8 (1.73m) Wt 210 lb 1.6 oz (95.3kg) SpO2 96% BMI 31.95 kg/(m2). O2 Therapy: Room Air Physical Exam Performed: General appearance: Well appearing, alert and orientedx3, in no acute distress. Skin: color, texture, turgor normal Head: Normocephalic, no masses, lesions Eyes: PERRLA. Neck: Supple, no bruits Lungs: Clear to auscultation. No wheezing, rhonchi, rales. Heart: RRR without murmur, gallop, or rubs Abdomen: soft, non-tender. Dressing over right lower quadrant abdominal wall abscess Extremities: No deformities, edema, fungal infection between right first and second toes Musculoskeletal: No joint swelling, deformity, or tenderness Neuro: No focal neurologic deficit Lines, Drains, and Airways Line Duration Peripheral 08/11/22 1915 Short Right Antecubital 20 Gauge 1 day Peripheral 08/12/22 1445 Left Antecubital 22 Gauge <1 day Reviewed lines and needs to be continued: REASONS: Intravenous antibiotics DATA: Diagnostic tests reviewed for today's visit: Most recent labs Most recent imaging Most recent EKG Assessment/Plan Problem List Pelvic abscess in female POA: Yes Acquired hypothyroidism POA: Yes History of Gelacio-en-Y gastric bypass POA: Yes Generalized abdominal pain POA: Yes Post-op pain POA: Yes Anemia POA: Yes Attention deficit hyperactivity disorder (ADHD) POA: Yes Chronic pain syndrome POA: Yes Intercostal neuralgia POA: Yes Abdominal wall abscess at site of surgical wound POA: Yes HOSPITAL COURSE: Melina Díaz is a 46 year old female presented with past medical history of obesity, gastric sleeve surgery in 2011 with conversion to bypass in 01/03 and subsequent revision on 07/29 Gelacio en Y, chronic pain syndrome, ADHD, anxiety, hypothyroidism, anemia, migraines, severe GJ stricture (s/p dilation x2), endometriosis and kidney stone. Presented with right lower quadrant pain gradually worsening last few days nausea/vomiting. CT abdomen pelvis showed: right abdominal wall abscess and complex collection in the right posterior pelvis 3.5 x 2.6 x 2.9 cm concerning for pelvic abscess. Principal Problem: Abdominal wall abscess, status post IANDD 08/12/2022 Pelvic abscess in female History of Gelacio-en-Y gastric bypass Abdominal pain Assessment AND Plan: - revision surgery on 07/29, noticed redness and firmness 08/07, worsening since, (more content not included)...[facility] InstituteUlrvkiti12-13-5502 Miscellaneous Notes * Telephone Encounter - Aubree Lopez RN - 08/13/2022 11:33 AM EST I spoke to the patient and advised that the lung biopsy was done because any tissue that is removedfrom the body is set to pathology. I advised that according to the surgical note there was a tear from the retractor and Dr. Griffin removed a small mount of tissue for the repair and it was sent to pathology. Patient stated understanding and had no further questions. Aubree Lopez RN * Telephone Encounter - Aubree Lopez RN - 08/13/2022 9:48 AM EST Patient called and left a message stating she was told there was a lung biopsy done during her surgery on 07/29/2022 and she would like to know why this biopsy was done. Aubree Lopez RN documented in this encounterMetrohealth Cleveland Heights [facility] Center11-29-2022 NoteHNO ID: [id number] Author: Elin Crump PA-C Service: General Surgery Author Type: Physician Unix System Administrator Type: Procedures Filed: 08/12/2022 12:57 PM Note Text: INCISION AND DRAINAGE Indication: Abscess located on Right abdomen Analgesia/Sedation: Local; lidocaine 2% Site Prep: Povidone iodine, allowed to dry for 30 seconds Approach: Open Incision made with a 11 blade scalpel. A moderate amount of white, rodriguez, and bloody fluid was drained. Packing was placed. Wound was dressed with dry roll gauze. Depth of Incision: Subcutaneous tissue Drainage Device: None Patient tolerated procedure well. Complications: None Specimens: Cultures sent Estimated Blood Loss: [facility]11-29-2022 NoteHNO ID: [id number] Author: Arnold Johnson MD Service: Hospital Medicine Author Type: Physician Type: Plan of Care Filed: 08/12/2022 12:49 PM Note Text: Patient seen and examined. Admitted early this morning by night team. Admitted for right abdominal wall abscess and complex collection in the right posterior pelvis 3.5 x 2.6 x 2.9 cm concerning for pelvic abscess. General surgery evaluated the patient and is going to drain the abdominal wall abscess. IR consult was placed for drainage of pelvic abscess but they stated that is not reachable due to bowel interposition. General surgery discussed her case with her surgeon at [facility] who recommended general surgery to attempt draining abdominal wall abscess. Patient also has iron deficiency anemia anemia and has been seen by hematology on 08/12/2022 who recommended IV iron infusion, we will start during this admission. As per general surgery request pain management consult placed as well. If a bed becomes available at [facility] patient will be transferred over there. ID consult placed.[facility] InstituteAbpbsyvh39-08-1858 NoteHNO ID: [id number] Author: COURTNEY Pena Service: Care Management Author Type: Electrical Plumbing Supervisor Type: Care Mgt Initial Assessment Filed: 08/12/2022 11:38 AM Note Text: CARE MANAGEMENT: ASSESSMENT AND DISCHARGE PLAN SERVICE DATE: August 12, 2022 SERVICE TIME: 1133 PRIMARY CARE PHYSICIAN: Sean Ruiz DO Primary Contact: Extended Emergency Contact Information Primary Emergency Contact: Shaw Díaz Mobile Relation: Spouse ADMISSION STATUS: Inpatient Insurance Provider: BLUE ACCESS PPO NEEDS PRIOR TO DISCHARGE Needs Prior to Discharge: To Be Determined;Other: See Comment (Possible transfer to [facility]) POTENTIAL TRANSITION PLANS Home Based on clinical judgement, Care Management will address the following needs: No transitional/discharge planning needs at this time (Plan to transfer to [facility]) Patient's perception of need for this admission: I think they are going to transfer me to [facility] because that is where my surgeon is ADVANCE DIRECTIVES Current Advance Directive: Health Care Power of Roofing Subcontractor In Chart: Yes Up To Date and Valid: Yes MS/BEHAVIOR Baseline Mental Status Prior to this Illness what was the patient's Baseline Mental Status?: History of Mental Illness (H/O anxiety) Prior to this illness, has anyone described the patient having any of the following behaviors?: Not Applicable Relationship of the informant to the patient:: Self READMISSION Last Discharge Date: 08/04/22 Is this Within the Past 30 days? From what level of care did patient present?: Home Last discharge within 30 days: Yes Is this a planned readmission?: No Unplanned Reason: Other: See Comment (redness and tenderness RLQ, concern wound infection) Followed Up with Appointment Prior to Admission: Patient scheduled, but readmitted prior PATIENT SCREEN Patient/Acrobatic Rigger Stated Goals: To have reduction in symptoms;To return home to life as it was Payor gaps or opportunities/considerations/situation: Narrow Network Under the care of a PCP?: Yes, External Provider Provider Name: Dr Sean Ruiz Does the patient have transportation upon discharge?: Yes Use of any community resources?: No Does the patient have a stable and supportive living arrangement and home setting?: Yes Are there any potential risks or gaps identified by risk/functional/fall,etc. scores in the EMR?: No Any potential risks related to substance abuse and/or behavioral health?: No Based on clinical judgement, Care Management will address the following needs: No transitional/discharge planning needs at this time (Plan to transfer to [facility]) CAREGIVER ASSESSMENT MEDICAL Medical Needs: Two or more chronic diseases Health Issues Impacting Discharge Plan: (PMH of obesity, gastric sleeve surgery in 2011 with conversion to bypass in 01/03 and subsequent revision on 07/29 Gelacio en Y, chronic pain syndrome, ADHD, anxiety, hypothyroidism, anemia, migraines, severe GJ stricture (s/p dilation x2),) Medication Adherance I am convinced of the importance of my prescription medication: 0 - Agree Completely I worry that my prescription medication will do more harm than good to me : 0 - Disagree Completely I feel financially burdened by my hyp-sj-vmkpxm expenses for my prescription medication:: 0 - Disagree Completely Risk Score: 0 Patient is categorized as: Low risk < 2 SOCIAL Living Arrangements: Home Lives With: Spouse;Other: See Comment (5 teenage children all supportive) Supportive Patient Contact:: Yes Is Patient Psychosocially Complex?: No Health Literacy How often do you need to have someone help you when you read instructions, pamphlets, or other written material from your doctor or pharmacy? : 1 - Never How confident are you filling out medical forms by yourself?: 1 - Extremely If Patient scores > 3 on either question, the following interventions were put into place:: Patient did not score > 3 on either question. Food Insecurity: Not on file Financial Resource Strain: Not on file Transportation Needs: Not on file Housing Stability: Not on file BEHAVIORAL/COGNITIVE Psychosocial Psychosocial Needs: None FUNCTIONAL How do you manage to accomplish the following: Independent: Ambulation;Bathe/Shower;Dress;Meals/Meal Prep;Going to the bathroom;Medication Management;Transportation to appointments/community Services/Needs//Equipment Does Patient Currently Receive Any Community Services or Home Care?: None;Other: See Comment (Recently active with [facility] but no longer following as pt is no longer no home TPN) Equipment Prior to Admission: None Has the Patient Been in a Group Home Facility in the Past 30 days?: No No social discharge barriers identified at this time. No behavioral/cognitive discharge barriers identified at this time. No functional discharge barri (more content not included)...[facility] 08-12-2022 Miscellaneous Notes* Telephone Encounter - Cecil Schneider APRN.CNP - 08/12/2022 11:59 AM EST Currently admitted with possible infection Cecil Schneider APRN.CNP * Telephone Encounter - Daniela Ford LPN - 08/11/2022 10:54 AM EST States in plan: Liquid oxycodone is not needed here Please advise with further instructions documented in this encounterMet[facility]29-[facility] Miscellaneous Notes* Telephone Encounter - Jacey Hoffman - 08/12/2022 9:52 AM EST Received labs from [facility] dated 07/12/2022, please review. Thank You! documented in this encounterMetrohealth [facility]11-29-2022 NoteHNO ID: [id number] Author: Laura Michaud RN Service: Nursing Author Type: Registered Nurse Type: Nursing Progress Note Filed: 08/12/2022 2:38 AM Note Text: Patient admitted to room 512 in stable condition.[facility] InstituteAvthwfap75-50-3039 NoteHNO ID: [id number] Author: RT Maribel(R) Service: ? Author Type: Technologist Type: Progress Notes Filed: 08/11/2022 7:15 PM Note Text: Radiology Service Progress Note PATIENT NAME: Melina Díaz DATE OF SERVICE: August 11, 2022 TIME: 7:15 PM PATIENT IDENTITY VERIFICATION COMPLETED USING TWO (2) IDENTIFIERS: Name and Date of confirmed by patient verbally and Name and Date of confirmed by identification band. FALL SCREENING: Has the patient had 2 falls in the last year or 1 fall with injury or currently using an Ambulatory Assistive Device (Walker, Cane, Wheelchair, Crutches, etc.)? Emergency Room Patient: Screened in ED PATIENT GENDER DATA: Female. status: : No status: NO. PATIENT RELEVANT IMPLANT DATA REVIEWED: Not Applicable RADIOLOGY DEPARTMENT: CT; Exam(s) Completed: Abdomen/Pelvis PERIPHERAL IV DATA: Site assessment: Clean,Dry and Intact, Site disposition Left in for next appointment SIGNED BY: RT Maribel(R) August 11, 2022 7:15 [facility] NoteHNO ID: [id number] Author: RT Jacqueline(R) Service: ? Author Type: Technologist Type: Progress Notes Filed: 08/11/2022 5:12 PM Note Text: Radiology Service Progress Note PATIENT NAME: Melina Díaz DATE OF SERVICE: August 11, 2022 TIME: 5:10 PM PATIENT IDENTITY VERIFICATION COMPLETED USING TWO (2) IDENTIFIERS: Name and Date of confirmed by patient verbally and Name and Date of confirmed by identification band. FALL SCREENING: Has the patient had 2 falls in the last year or 1 fall with injury or currently using an Ambulatory Assistive Device (Walker, Cane, Wheelchair, Crutches, etc.)? Emergency Room Patient: Screened in ED PATIENT GENDER DATA: Female. status: : No status: NO. PATIENT RELEVANT IMPLANT DATA REVIEWED: Not Applicable RADIOLOGY DEPARTMENT: General X-ray: Exam(s) Completed: Chest X-Ray PERIPHERAL IV DATA: Not applicable SIGNED BY: RT Jacqueline(R) August 11, 2022 5:10 [facility] [id number] Miscellaneous Notes* Telephone Encounter - Jen Mitchell RN - 08/11/2022 2:41 PM EST I called the patient for a postop discharge update call but the patient was in the ED waiting to beseen due to her abdominal incision being infected she was recommend to be seen-per patient, Patientwas also asking for more or different pain medications due to her Oxycodone not being metabolized properly with the nausea and other symptoms she is having she mentions that she made primary surgeon aware and has a call out, I advised her to reach out to them again and to make the ED team aware also. Patient was unable to answer post op questions at this time will follow up at a later date. Patient verbalized understanding and all questions were answered. Jen Mitchell RN August 11, 2022 2:50 PM documented in this encounterMetro[facility]11-28-2022 Miscellaneous Notes* Telephone Encounter - Aubree Lopez RN - 08/11/2022 12:31 PM EST Patient notified me that she is going to the ER at [place] as the abdominal pain is too much to handleas is the nausea and diarrhea. I advised patient to go the whatever ER she is comfortable with and to seek care close for any sudden change of symptoms. Aubree Lopez RN * Telephone Encounter - Aubree Lopez RN - 08/11/2022 9:[address] Ozuna patient to change to an in person appointment this week, get hydration scheduled and an order for antibiotics was placed. I spoke to patient and notified patient of the antibiotic order and request for hydration. Patient is open to changing to an in- person visit, appointment offered for 08/12/2022 1pm. Aubree Lopez RN * Telephone Encounter - Aubree Lopez RN - 08/11/2022 9:05 AM EST Images from the original note were not included. I spoke to the patient and she states she has had increasing pain all weekend and the abdominal incision is swollen and warm. Patient also states she has nausea ans pain ans is having difficulty keeping medications or food in her stomach. documented in this encounterMetro[facility]11-28-2022 Miscellaneous Notes* Telephone Encounter - Daniela Ford LPN - 08/11/2022 10:08 AM EST Called patient no answer left vm to call office back at [phone]. Sent my chart message prior auth completed no need for liquid oxycodone oxycodone ir tapering prescription was given on 08/08. * Telephone Encounter - Cecil Schneider APRN.CNP - 08/11/2022 8:07 AM EST PA completed and oxycodone IR tapering Rx was given on 08/08. No need to liquid oxycodone Cecil Schneider APRN.CNP * Telephone Encounter - Mirna Bateman Ma - 08/08/2022 2:09 PM EST Received PA fax from [facility]; PA can be completed using FROST: FROST: [id number] : 1975 * Telephone Encounter - Елена Frank Pss - 08/08/2022 11:27 AM EST Patient calling in as the [facility] that was called in needs a PA as well as pharmacy needs to order this in Cannot get until Thursday at least per pharmacy Patient asking for liquid oxycodone to hold her over until new meds can have PA Please advise and call patient with an update documented in this encounterMetrohealth [facility]11-25-2022 Miscellaneous Notes* Telephone Encounter - Betty Johnson RN - 08/08/2022 4:28 PM EST PATIENT INFORMATION Record ID: [id number] Patient Name: [facility]: [facility] [place]: [facility] [place] Attending: Sanford Ozuna Center: General Surgery INSTRUCTIONS SN to remind patient of next upcoming appointment date, time, location SN TRANSFER TO [facility] SURVEY INFORMATION Medical/Nurse Unix System Administrator: Betty Johnson 1. Your discharge instructions are important in guiding you through the recovery process. Is there anything I could help you clarify on your discharge instructions? (Standard Question) No, no clarification needed 2. We encourage a follow up appointment with your physician. Do you have one scheduled? If not; What is the name of the doctor you should be seeing for your follow-up care? (Standard Question) Yes 3. Many patients have concerns about their medications once they are home. Do you have any questions about getting or taking your medications? (Standard Question) No 4. Do you have any new or worsening symptoms? (Standard Question) Yes documented in this encounterMetro[facility]11-25-2022 Miscellaneous Notes* Telephone Encounter - Aubree Lopez RN - 08/08/2022 1:36 PM EST Per patient is to continue to monitor the incision and the redness and to seek emergency care if the pain or redness worsens or if she develops fever, chills or any other new or concerning symptoms. I spoke to the patient and advised that she is to continue to monitor the incision and how she is feeling and to seek emergency care for increasing pain, redness, drainage or for any fever or other new or concerning symptoms. Patient's follow up appointment was changed to virtual per her request. Aubree Lopez RN * Telephone Encounter - Aubree Lopez RN - 08/08/2022 10:02 AM EST Images from the original note were not included. I spoke to the patient and she states over all she is doing well, much less nausea and emesis than before surgery and tolerating small amounts of food and clear liquids. Patient with 2 issues: 1) sporadic, self-limited cramping in feet, arms and legs. I discussed the patient increasing her fluids intake as able ans increasing the amount of sports drinks she takes in. 2) Patient with left side mid-abdominal incision with growing firmness under the incision. Patient states the incision now hurts more and she has noticed an increase in the lump under the incision. Patient states it went from about 2in across in diameter to 5-6 inches. Patient denies any fever, chills or drainage from the incision. Patient states that the lump under the incision has grown over the last 24-48 hours as has the redness around the incision. Patient states she does not feel like it is infected. Aubree Lopez RN * Telephone Encounter - Aubree Lopez RN - 08/08/2022 9:45 AM EST Per patient 2nd MyChart 08/07/2022 encounter: I have a surgical site the has a hard mass under it that has gown in size and is very pain full even just sitting. I am babying the right low side of my abdomen were the incision is and notice was small hard couple days ago and today doubled in size and hurts badly. Not hot to touch and the incision itself on outside looks great. Not sure what s going on. Have pain management appointment first thing tomorrow. documented in this encounterMetro[facility]11-25-2022 Miscellaneous Notes* Telephone Encounter - Aubree Lopez RN - 08/08/2022 10:01 AM EST See 08/07/2022 phone encounter. documented in this encounterMetrohealth [facility]11-25-2022 History of Present illness Narrative* Johann Echeverria MD - 08/08/2022 9:18 AM EST SUBJECTIVE: The [facility] for a follow-up appointmentfor pain in the right side of chest and abdominal area from surgery. Also the perineal area It is described as: aching(+) burning(+) stabbing(-) Pressure(+) Pulling(+) Sharp(+) Constant(+) The patient rates it as a 9/10. The pain is worse when the patient performs the following actions: deep breathing . FH: patient denies any family history of the chief complaint for this visit SH: denies illicit drug use Is the patient receiving analgesia/pain relief from the current medications? (-/+) Has the current medication improved activities of daily living? (-/+) Have the current medications been associated with any adverse events? (-) Has the patient displayed any aberrant drug-related behaviors? (-) Last took opioid medication: oxycodone liquid 2 weeks ago, oral tablets today Oxycodone IR-this morning Relevant [place] records were reviewed. REVIEW OF SYSTEMS: GENERAL: (-) weight loss, (-)malaise, (-)fevers. HEENT:(-)headaches. NECK: (-) for lumps, goiter, (-)pain and (-)significant neck swelling. RESPIRATORY: (+) for cough, wheezing or shortness of breath. CARDIOVASCULAR: (+) for chest pain, leg swelling or palpitations.-surgery GI: (+) abdominal discomfort, (-)blood in stools or black stools or change in bowel habits. MUSCULOSKELETAL: (+)joint pain , (-)swelling, (-)back pain, (+)muscle pain. SKIN: (+) for lesions, rash, and itching. PSYCH: (+)sleep disturbance, (+)mood disorder, (-)recent psychosocial stressors. HEMATOLOGY/LYMPHOLOGY: (+) for prolonged bleeding, bruising easily or swollen nodes. NEURO: (-)syncope, paralysis, seizures or tremors. All other reviewed and negative other than HPI. Scribe attestation: IKatlin LPN (August 08, 2022 9:18 AM) attest that this documentation has been prepared under the direction and in the presence of Johann Echeverria MD Electronically Signed: Johann Echeverria MD August 08, 2022 9:18 AM Physician attestation: I, Johann Echeverria MD, personally performed the services described in this documentation. All medical record entries made by the scribe were at my direction and in my presence. Furthermore, I personally performed the physical exam and documented it as such, and agree that the record reflects my personal performance. Electronically Signed: Johann Echeverria MD August 08, 2022 9:18 AM OBJECTIVE: Pulse 87 Resp 16 Wt 94.3 kg (208 lb) SpO2 98% BMI 31.63 kg/m GENERAL: Well appearing. No acute distress PSYCH: Mood and affect is appropriate. Awake, alert, and oriented x 3 SKIN: 5cm erythema around Skin incision RLQ. TTP+ Otolaryng/HEENT: Normocephalic, atraumatic. EOM intact RESP: Respirations are unlabored CARD: Regular rate. Cap refill <2s. Extremities pink and well perfused at nailbed. MSK: Bilateral upper and lower extremity strength is normal and symmetric. No atrophy or tone abnormalities are noted. Gait: Gait is smooth NEURO: Bilateral upper and lower extremity coordination are intact. No loss of sensation ASSESSMENT AND MEDICAL DECISION MAKING: The patient is a 46 year old female with diffuse pain complaints chronic longstanding abd pain, flank pain, suspicious for intercostal neuralgia. she is s/p intercostal ablation while inpatient Detailed discussion regarding the source of the pain. We discussed conservative options with a focus on improvement (and ongoing measurement) of physical function. right LQ port incision has skin edges well apposed but increasing erythema (no discharge). TTP+ she will keep and eye on this, outline the area of redness, and if expanding will proceed to ER or surgeons office re: question of infection Dx: Diarrhea due to malabsorption H/o gastric bypass Chronic pain syndrome (primary encounter diagnosis) Generalized abdominal pain Intercostal neuralgia Encounter for therapeutic drug level monitoring PLAN: -Didn't tolerate gabapentin in the past (declines pregabalin), didn't tolerate paroxetine. 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 She was dc'd with oxycodone IR but having variable absorption (known malabsorption) -PAIN PANEL, UR QUANT -Urine Tox Screen -oxyCODONE myristate (XTAMPZA ER) 9 mg CSpT Sig: take 1 tab PO BID for severe pain for 1 month. This prescription should last at least 1 month.It will not be refilled early under any circumstances. By filling this prescription, the patient hereby agrees to abide completely by the [facility] opioid agreement in all aspects Dispense: 60 Each Refill: 0 Next month will plan for reducing the dose to off by open capsule sprinkles and tapering Trial of venlafaxine (EFFEXOR) 25 mg tablet Sig: Take 0.5 (one-half) tab PO in the morning x 7 days, then increase to Take 0.5 (one-half) tab PO BId x 7 days, then increase to 1 tab PO BID Dispense: 60 tablet Refill: 5 plan to d/c oxycodone IR tablets after tapering over the course of the next 3 weeks Liquid oxycodone is not needed here. consider ketamine infusion if no improvement Return to clinic (in-person office visit or virtual visit/telemedicine) after 4- 8 weeks I spent a total of 25 minutes on the date of the service which included: *preparing to see the patient *[id number] patient care *completing clinical documentation *obtaining and/or reviewing separately obtained history *performing a medically appropriate examination *counseling and educating the patient/family/caregiver *ordering medications, tests, or procedures *communicating with other HCPs (not separately reported) *independently interpreting results (not separately reported) *communicating results to the patient/family/caregiver *care coordination (not separately reported). Of this, greater than 50% of this was spent in the presence of the patient for purposes of education and counseling regarding the diagnosis and treatment of pain. Patient is aware that any diagnostic testing is best discussed in person to fully explain the significance and resulting treatment plan. Patient is aware that they will need a follow up office visit/virtual visit for proper care. Patient agrees with above. Johann Echeverria MD August 08, 2022 documented in this encounterMetrohealth [facility]11-23-2022 Miscellaneous Notes* Telephone Encounter - Gabrielle Bryan RN - 08/06/2022 2:57 PM EST Called patient and left voice mail for patient that she is scheduled for an appt with Dr Echeverria on08/08/22 at 9:00 at [facility]. This appt is important as it is a hospital f/u appt. [facility] address and phone # left on voice mail. * Telephone Encounter - Shruti Feliz LPN - 08/05/2022 4:41 PM EST Left voice mail with patients to have her call and confirm appt for Thursday. * Telephone Encounter - Shruti Feliz LPN - 08/05/2022 2:43 PM EST Left voice mail for patient that I scheduled her for 08/08/22 at 9:00. Will check back later to make sure she received message. * Telephone Encounter - Shruti Feliz LPN - 08/05/2022 2:37 PM EST ----- Message from Johann Echeverria MD sent at 08/05/2022 2:29 PM EST ----- thanks for the update. my office will reach out to arrange a post-discharge visit to taper Rx to off. have a great holiday juan carlos ----- Message ----- From: Sanford Ozuna MD Sent: 08/04/2022 4:57 PM EST To: MD Johann Rowell I am discharging Melina today with a 5 day pain medication supply. Sanford documented in this encounterMetrohealth [facility]11-22-2022 Miscellaneous Notes* Telephone Encounter - Shruti Feliz LPN - 08/05/2022 9:25 AM EST Patient discharged. * Telephone Encounter - Shruti Feliz LPN - 07/30/2022 2:22 PM EST Patient still in the hospital. * Telephone Encounter - Shruti Feliz LPN - 07/30/2022 2:21 PM EST ----- Message from Johann Echeverria MD sent at 07/30/2022 7:51 AM EST ----- Thanks for the update. I did make it clear at our office visit that I don't recommend these medications lifelong. Happy to assist the patient with tapering off opioids if she is on board with that plan. Juan Carlos ----- Message ----- From: Sanford Ozuna MD Sent: 07/29/2022 5:17 PM EST To: Parvin Griffin MD, MD Juwan Rowell Dr of thoracic surgery and I did a combined vagotomy (transthoracic) and GJ (laparoscopic) revision today. Her ulcer pain should be gone. I believe Dr. Griffin did some cryoablation of the nervesat the thoracic incisions as well to help. My plan for her is to keep her in house until she is on her outpatient main regime. I think and hope you will be able to liberate her from pain medications relatively quickly post op. Sanford documented in this encounterMetrohealth [facility] Center11-21-2022 [facility] 08-04-2022 [place] [address]-20-2022 NoteHNO ID: [id number] Author: Jo Flynn RN Service: Nursing Author Type: Registered Nurse Type: Nursing Progress Note Filed: 08/03/2022 11:35 AM Note Text: Patient complaining of trouble urinating. Voided 500 ml and post void scan was 294 ml.[facility] [id number] [place] [address]-19-2022 Note [facility] HospitalIznrvsrt47-28-8900 NoteHNO ID: [id number] Author: Interface Note Service: ? Author Type: ? Type: Progress Notes Filed: 08/02/2022 2:42 AM Note Text: Epic Scheduled Downtime: 08/02/2022 1:00:00 AM to 08/02/2022 2:26:04 [facility]11-18-2022 [place] [address]-17-2022 [facility] 07-30-2022 [place] [address]-16-2022 [place] [address]-15-2022 Note [place] [address]-15-[address]15-[address]15-2022 [place] [address]-15-2022 [facility] 07-29-2022 Miscellaneous Notes* Telephone Encounter - Jacey Hoffman - 07/29/2022 8:08 AM EST Received labs from [facility] dated 07/28/2022, please review. documented in this encounterSomis [id number] Miscellaneous Notes* Telephone Encounter - Aubree Lopez RN - 07/24/2022 10:15 AM EST [facility] patient needs a [facility] for Alteplase for PICC line as 1 line is occluded. They requested the prescription be sent to [facility]. Aubree Lopez RN documented in this [facility]11-04-2022 Miscellaneous Notes* Telephone Encounter - Aubree Lopez RN - 07/18/2022 3:02 PM EDT Zofran orders faxed to [facility]. Aubree Lopez RN * Telephone Encounter - Aubree Lopez RN - 07/18/2022 11:17 AM EDT To send additional IV medication prescriptions fax order sheet to [phone]. Aubree Lopez RN documented in this [facility]11-01-2022 Miscellaneous Notes* Telephone Encounter - Jacey Hoffman - 07/15/2022 1:08 PM EDT Received [facility]. labs dated 07/12/2022 from [facility], scanned into [employer], please review. documented in this [facility]10-28-2022 Instructions* Patient Instructions* Parvin Griffin MD - 07/11/2022 12:32 PM EDT Operation scheduled on July 29, 2022. documented in this [facility]10-28-2022 History of Present illness Narrative* Parvin Griffin MD - 07/11/2022 10:30 AM EDT THIS IS A VIRTUAL TELEPHONE VISIT REASON FOR EVALUATION: Anastomotic ulceration(s). HPI: Melina Díaz is a very pleasant 46-year old female who had a gastric sleeve procedure performed 10 years ago. She underwent surgery in December 2021 at [facility] with conversion to gastric bypass. After surgery, she states that she was never able to get past the pureed stage of her diet. March 2022, the patient reports vomiting 5 out of 7 days per week. She went back to a liquid diet. EGD04/16/[address] Terry showed anastomotic stricture without ulceration, dilated with 8-10, 12-15, and 15-18mm balloons. The patient describes 3-5 days of relief after this. Gastric pouch biopsy showed mild chronic inflammation, neg for H.pylori. She was started on PPI capsules (opened, taking sprinkles) and liquid carafate. She states that her symptoms recurred after only 1 week. Repeat EGD 05/04/[address] Bose showed ulcerated/stenosed anastomosis, dilated to 15mm. Again, her symptoms recurred after [address] point[address] Bose recommended TPN and/or feeding tube placement. Pt elected to get a second opinion with Dr. Blanca at [facility]. She had another EGD 05/23/22. She continues to struggle with nausea/vomiting. She has a PICC line and is receiving hydration 2 days per week, no TPN. She continues to have abd pain, using oxycodone. The patient has been seen by Dr. zOuna. She underwent repeat EGD on 06/18/22 that showed: The esophagus was normal. Evidence of a Gelacio-en-Y gastrojejunostomy was found. The gastrojejunal anastomosis was characterized by ulceration. A 8 mm deep, crated ulcer was seen at the distal aspect of the anastomosis. This was traversed. The ohcrjhzh-oi-zilvkeq limb was examined. The examined jejunum was normal. The patient was admitted for abdominal pain and n ausea 06/25/22 - 07/01/22. She was started on TPN. Dr. Ozuna is planning on performing revision of her gastric bypass. He has referred the patient to me today to discuss surgical vagotomy at the same setting. Clinically, the patient complains of dysphagia, and pain. ALLERGIES: No known drug allergies MEDICATIONS: Current Outpatient Medications on File Prior to Visit Medication Sig PARoxetine (PAXIL) 10 mg tablet take 1 tab PO daily with food x 7 days, then increase to 2 tabs PO daily if tolerated. oxyCODONE (ROXICODONE) 5 mg/5 mL oral solution Take 5 mL by mouth every 6 hours as needed for pain. senna-docusate (SENNA-S) 8.6-50 mg per tablet Take 1 tablet by mouth twice daily. prochlorperazine (COMPAZINE) 5 mg tablet Take 2 tablets by mouth every 6 hours as needed. cholecalciferol (VITAMIN D3) 1,000 unit tab tablet Take 1 tablet by mouth once daily. Break open and release under tongue for best absorption levothyroxine (SYNTHROID) 50 mcg tablet Take 50 mcg by mouth. miSOPROStol (CYTOTEC) 200 mcg tablet Take 1 tablet by mouth four times daily. sucralfate (CARAFATE) 100 mg/mL suspension Take 10 mL by mouth before meals and at bedtime. cyanocobalamin, vitamin B-12, (B-12 COMPLIANCE) 1,000 mcg/mL kit 1 mL by INJECTION(UNSPECIFIED PARENTERAL ROUTES) route one time a week. ALPRAZolam (XANAX) 0.5 mg tablet Take 0.5 mg by mouth at bedtime as needed. granisetron HCl (KYTRIL INTRAVEN.) 300 mcg. dextroamphetamine-amphetamine (ADDERALL) 20 mg tablet Take 20 mg by mouth twice daily. Omeprazole 40 mg capsule Take 40 mg by mouth twice daily. nystatin cream Apply to affected area twice daily. MULTI-VITAMIN ORAL Take 1 tablet by mouth once daily. No current facility-administered medications on file prior to visit. PAST MEDICAL HISTORY: HISTORIES PAST MEDICAL HISTORY Diagnosis Date Breast mass 11/04/07 Right, biopsy benign Encounter for cosmetic surgery Endometriosis Excess skin of arm Fracture , ankle Localized adiposity Morbid obesity (HCC) Ovarian cyst induced hypertension Thyroid disorder PAST SURGICAL HISTORY Procedure Laterality Date ASSIST ONLY x3 LAPAROSCOPY SURG CHOLECYSTECTOMY 2005 Cholecystectomy, lap PAST SURGICAL HISTORY OF 10/28/2011 gastric sleeve PAST SURGICAL HISTORY OF 2011 excision of goiter PAST SURGICAL HISTORY OF thyroid mass removed TOTAL ABDOMINAL HYSTERECT W/WO RMVL TUBE OVARY 05/01/2010-05/2011 Hysterectomy, partial uterus then completion Social History Tobacco Use Smoking status: Never Smokeless tobacco: Never Vaping Use Vaping Use: Never used Substance Use Topics Alcohol use: Not Currently Drug use: No FAMILY HISTORY Problem Relation Age of Onset Thyroid Other 1st cousin - ? Grave's COPD Mother Hypertension Mother other (hypoglycemia) Mother Emphysema Father Coronary Artery Disease Father Ischemic Heart Disease Father 58 s/p stents Hypertension Father Asthma Sister 1/2 sister with female cysts other (unkown) Sister BiPolar-Bulemia None Brother 1/2--unkown REVIEW OF SYSTEMS: A 14-point review of systems was performed. All pertinent positives are listed in the HPI. All other systems reviewed are negative. EXAM: Physical Exam No Examination performed today. This is a virtual telephone visit. DIAGNOSTICS: I have personally reviewed the patient's available diagnotic studies, including: CT ABDOMEN/PELVIS 06/25/22: IMPRESSION: Status post gastric bypass. Mild gastrojejunitis about the anastomosis, likely due to inflamed ulcer/marginal ulcer disease. EGD 06/18/22: Findings: The esophagus was normal. Evidence of a Gelacio-en-Y gastrojejunostomy was found. The anastomosis was characterized by ulceration. A 8 mm deep, crated ulcer was seen at the distal aspect of the anastomosis.This was traversed. The gamkpaho-ql-lkmxhnm limb was examined. The examined jejunum was normal. Impression: - Normal esophagus. - Gelacio-en-Y gastrojejunostomy with gastrojejunal anastomosis characterized by ulceration. - Normal examined jejunum. - No specimens collected. CT ABDOMEN/PELVIS 06/16/22: IMPRESSION: No acute findings within the abdomen and pelvis. 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 Consider correlation with laboratory values. EGD 05/23/22: Final Pathologic Diagnosis Gastric biopsy: Gastric mucosa without significant pathologic change. Negative for intestinal metaplasia; no significant inflammatory activity identified. No Helicobacter pylori organisms identified on routine stain Clinical History Dysphagia, H. Pylori screen. EGD ([facility]) 04/24/22: Findings: The Z-line was regular and was found 35cm from the incisors. Evidence of a Gelacio-en-Y gastrojejunostomy was found. The gastrojejunal anastomosis was characterized by congestion, erythema, friable mucosa, mild stenosis and ulceration. This was traversed. The bfwqf-qq-axoacev limb was characterized by healthy appearing mucosa. a TTS dilator was passes through the scope. Dilation with a 12-13.5-15mm balloon dilator was performed to 15mm, The dilation site was examined following endoscope reinsertion and showed moderate improvement in luminal narrowing. Estimated blood loss was minimal. Exam of jejunum was otherwise normal. -No specimens collected IMPRESSIONS: Melina Díaz is a very pleasant 46-year old female who had a gastric sleeve procedure performed 10 years ago. She underwent surgery in December 2021 at [facility] with conversion to gastric bypass. After surgery, she states that she was never able to get past the pureed stage of her diet. March 2022, the patient reports vomiting 5 out of 7 days per week. She went back to a liquid diet. EGD 04/16/[address] Terry showed anastomotic stricture without ulceration, dilated with 8-10, 12-15, and 15-18mm balloons. The patient describes 3-5 days of relief after this. Gastric pouch biopsy showed mild chronic inflammation, neg for H.pylori. She was started on PPI capsules (opened, taking sprinkles) and liquid carafate. She states that her symptoms recurred after only 1 week. Repeat EGD 05/04/[address] Bose showed ulcerated/stenosed anastomosis, dilated to 15mm. Again, her symptoms recurred after 1week. At that point. Dr. Bose recommended TPN and/or feeding tube placement. Pt elected to get a second opinion with Dr. Blanca at [facility]. She had another EGD 05/23/22. She continues to struggle with nausea/vomiting. She has a PICC line and is receiving hydration 2 days per week, no TPN. She continues to have abd pain, using oxycodone. The patient has been seen by Dr. Ozuna. She underwent repeat EGD on 06/18/22 that showed: The esophagus was normal. Evidence of a Gelacio-en-Y gastrojejunostomywas found. The gastrojejunal anastomosis was characterized by ulceration. A 8 mm deep, crated ulcerwas seen at the distal aspect of the anastomosis. This was traversed. The ydahjlsx-ej-jujryfb limb was examined. The examined jejunum was normal. The patient was admitted for abdominal pain and nausea 06/25/22 - 07/01/22. She was started on TPN. Dr. Ozuna is planning on performing revision of hergastric bypass. He has referred the patient to me today to discuss surgical vagotomy at the same setting. Clinically, the patient complains of dysphagia, and pain. I spent more than 25 minutes with this patient counseling the patient on her anastomotic ulcerations and the utility of performing surgical vagotomy in conjunction with her planned revision of her gastric bypass. I personally reviewed all available diagnostic studies and documentation. I discussed management of nastomotic ulcerations and the utility of performing surgical vagotomy inconjunction with her planned revision of her gastric bypass. I discussed right robotic-assisted surgical vagotomy, cryoanalgesia procedure, possible conversion to right thoracotomy, possible blood transfusion. I did discuss the risks, options, benefits and alternatives in detail with the patient. She understands the risks and complications and would like to proceed. All of her questions were answered today. The patient's operation is scheduled on July 29, 2022. Once again, thank you for your kind referral of Melina Díaz to me. If you have any questions or if I can be of help to you with any of your other patients, please do not hesitate to contact me. documented in this encounterMet[facility]-27-[facility]22 Miscellaneous Notes* Telephone Encounter - Aubree Lopez RN - 07/10/2022 10:20 AM EDT Please see 07/09/[address] Echeverria's office. Aubree Lopez RN documented in this encounterMetro[facility]10-26-2022 Miscellaneous Notes* Telephone Encounter - Katlin Frazier LPN - 07/09/2022 10:59 AM EDT Patient has been reminded to check with pharmacy 24 to 48hr after request. Last office visit 07/04/2022 Follow up visit 10/09/2022 Pt is identified by name and birthdate: Yes Patient phones requesting refills as follows: Pt is taking two 25 mg tabs and would like to continue this medication see my chart encounter datedtoday 07/09/2022 Requested Prescriptions Pending Prescriptions Disp Refills amitriptyline (ELAVIL) 25 mg tablet 15 tablet 0 Sig: Take 1 tablet by mouth daily at bedtime for 5 days, THEN 2 tablets daily at bedtime for 5 days. Please review and advise. documented in this encounterMetrohealth [facility]10-25-2022 Miscellaneous Notes* Telephone Encounter - Shruti Feliz LPN - 07/08/2022 4:16 PM EDT Spoke with insurance and they will only allow 30 tablets. Patient can take one tablet for seven days the increase to two with the thirty day supply. Left voice mail with patient that she will run out early and let us know if she tolerated the medication then we can switch to 20mg tablets. Pharmacy was left message. * Telephone Encounter - Shruti Feliz LPN - 07/08/2022 7:23 AM EDT Pre-auth completed and faxed and waiting for response. * Telephone Encounter - Shruti Feliz LPN - 07/07/2022 3:47 PM EDT Resending over form. * Telephone Encounter - Shruti Feliz LPN - 07/07/2022 11:54 AM EDT FRITZ salinas called at [phone] and he will be faxing over a form. To pre-auth paxil. documented in this encounterMet[facility]10-25-2022 History of Present illness Narrative* Aubree Lopez RN - 07/08/2022 1:21 PM EDT This encounter opened in Error. documented in this encounterMetro[facility]10-21-2022 Instructions* Patient Instructions* Katlin Frazier LPN - 07/04/2022 11:57 AM EDT [facility] FACTS LAB HOURS: [place] [facility] is open from 7:30am to 6pm M-, open from 7:30am-5pm on Thursday and open 8am-12pm on Thursday. Closed on Thursday [facility] is open from 7:30am to 5pm Thursday-Thursday, 8am-12pm on Thursday, and closed on Thursday. Routine Lab Orders 45 days after they are entered. If your lab orders , you may be required to wait in the lab while they are reinstated Future Orders are lab tests to be completed on the EXPECTED date. These orders 45 days after the expected date. Standing Orders are recurring orders with an expiration date. The interval will indicate how often the test should be completed. Fasting Lab means nothing to eat or drink (except water) 10-12 hours before your blood is drawn. CT/MRI/IVP: If you have one of these radiology exams ordered along with blood work, please completethe blood work at least 24 hours prior to the scheduled exam. [facility] -- No appointment needed At the [facility], patients 2 years and older can get walk-in medical attention for common healthproblems including: Cold and flu symptoms Conjunctivitis Ear and throat infections Minor bumps and cuts Seasonal allergies Skin rashes Simple sprains and strains Sinus infections Urinary tract infections Upper respiratory tract infections Locations and Times [facility] - [address] [place] [address], [facility] - [address] [place] [address] - Thursday through Thursday 6 AM - 9 PM - Thursday and Joey 8 AM - 4 PM For [facility] LOCATIONS, HOURS OF OPERATION and CURRENT WAIT TIMES, visit the following link fordetails. [email or web address] Department Tigre BooZarina Doty [facility] - [address] [facility] [address] ([address]), [place] [facility] [phone] Pharmacy Hours: Thursday through Thursday 8 am to 6 pm Opt in to receive text reminders for your appointments with [facility] health specialist today. To opt in, text [phone] to [phone]. My Chart Schedule My Appointment enables you to view your established primary care provider's open schedule and book an appointment online in real-time. This feature is available in internal medicine, family medicine, or pediatrics at any of our [facility] locations and main campus. documented in this encounterMetrohealth [facility]10-21-2022 History of Present illness Narrative* Johann Echeverria MD - 07/04/2022 11:47 AM EDT Referring Or Consulting Physician: Sanford Ozuna [id number] [facility] [id number] CHIEF COMPLAINT: pain in my right abdominal area HPI: This is a 46 year old female here for evaluation of pain that began 2 months ago following no particular inciting event. At this point, the pain is located in the areas detailed above (see cc). The patient describes the pain as aching, severe, sharp, soreness, and shooting and is a 8/10 in severity. It is constant and severe The pain is exacerbated by movement and is mitigated by sitting still . In the past, the patient has been treated with various medications. The patient is currently taking oxycodone soloution for pain. In the past, the patient has been treated with the following interventional pain procedures: none Pt is on TPN Pt has a PIC LINE Relevant [place] records were reviewed. Adverse Reaction to Medication: yes Opioid Agreement: No Receiving Disability Income: Yes Last Date/Time Patient had Opioid Medication: this morning at 10:00 am and the oxycodone helps Imaging Studies: 06/25/2022 8:10 PM - Radiology, [place] In Impression IMPRESSION: Status post gastric bypass. Mild gastrojejunitis about the anastomosis, likely due to inflamed ulcer/marginal ulcer disease. Billing Assistant: PSCB Transcribe Date/Time: Jun 25 2022 7:55P Dictated by : ALAN MACDONALD MD This examination was interpreted and the report reviewed and electronically signed by: ALAN MACDONALD MD on Jun 25 2022 8:08PM EST Results-Findings * * *Final Report* * * DATE OF EXAM: Jun 25 2022 7:35PM [facility] 0530 - CT ABD/PEL W IVCON / PROCEDURE REASON: Abdominal pain, acute, nonlocalized * * * * Physician Interpretation * * * * EXAMINATION: CT ABD/PEL W IVCON INDICATION: Abdominal pain, acute, nonlocalized Abdominal pain, acute, nonlocalized, nausea/vomiting, recent EGD with ulcer at the distal aspect of the anastomosis COMPARISON: 06/16/2022 TECHNIQUE: CT of the abdomen and pelvis was performed using standard technique, scanning from just above the dome of the diaphragm to the pubic symphysis. Contrast: IV: 150 ml of Omnipaque 300 : ml of CT Radiation dose: Integrated Dose-length product (DLP) for this visit = 682 mGy*cm. CT Dose Reduction Employed: Automated exposure control (AEC) FINDINGS: Lower Thorax: No consolidations Liver: No masses. Gallbladder/Biliary: Stable mild biliary ductal dilation status post cholecystectomy. Spleen: Stable 1.3 cm splenic cystic lesion. Pancreas: Unremarkable. Adrenals: No nodules Kidneys: Too small to characterize left renal hypodensity. No hydronephrosis. Vasculature: No abdominal aortic aneurysm. GI Tract: Status post gastric bypass. There is mild wall thickening and stranding about the gastrojejunostomy with small ulceration (2:33-34, coronal image 35). No evidence of obstruction or appendicitis. Pelvis: Hysterectomy. No bladder wall thickening. Mesentery/Peritoneum/Retroperitoneum: No free air or fluid Lymph Nodes: No lymphadenopathy. Bones and soft tissues: Scattered degenerative changes about the spine and hips. No acute findings. Plastic Boat Patcher (topogram) images: No additional findings. I personally reviewed the above imaging findings, and discussed them with the patient in detail. Is the patient receiving analgesia/pain relief from the current medications? (+) Has the current medication improved activities of daily living? (+) Have the current medications been associated with any adverse events? (-) Has the patient displayed any aberrant drug-related behaviors? (-) Illicit drug use? (-) Patient denies loss of bowel or bladder control, unintentional weight loss, h/o malignancy, fevers/chills/night sweats. PAST MEDICAL HISTORY Diagnosis Date Breast mass 11/04/07 Right, biopsy benign Encounter for cosmetic surgery Endometriosis Excess skin of arm Fracture , ankle Localized adiposity Morbid obesity (HCC) Ovarian cyst induced hypertension Thyroid disorder PAST SURGICAL HISTORY Procedure Laterality Date ASSIST ONLY x3 LAPAROSCOPY SURG CHOLECYSTECTOMY 2005 Cholecystectomy, lap PAST SURGICAL HISTORY OF 10/28/2011 gastric sleeve PAST SURGICAL HISTORY OF 2011 excision of goiter PAST SURGICAL HISTORY OF thyroid mass removed TOTAL ABDOMINAL HYSTERECT W/WO RMVL TUBE OVARY 05/01/2010-05/2011 Hysterectomy, partial uterus then completion Social History Tobacco Use Smoking status: Never Smokeless tobacco: Never Vaping Use Vaping Use: Never used Substance Use Topics Alcohol use: Not Currently Drug use: No FH: Patient denies a family history of the current chief complaint. ALLERGIES Allergen Reactions Gabapentin Angioedema Patient reports throat swelling with gabapentin. Tramadol Hives Adhesive Tape (Serina* Rash, Swelling, Itching Tomato Intolerance Toradol [Ketorolac * Hives, Swelling Current Outpatient Medications Medication Sig oxyCODONE (ROXICODONE) 5 mg/5 mL oral solution Take 5 mL by mouth every 6 hours as needed for pain. methocarbamol (ROBAXIN) 500 mg tablet Take 1 tablet by mouth three times daily as needed. senna-docusate (SENNA-S) 8.6-50 mg per tablet Take 1 tablet by mouth twice daily. prochlorperazine (COMPAZINE) 5 mg tablet Take 2 tablets by mouth every 6 hours as needed. cholecalciferol (VITAMIN D3) 1,000 unit tab tablet Take 1 tablet by mouth once daily. Break open and release under tongue for best absorption amitriptyline (ELAVIL) 25 mg tablet Take 1 tablet by mouth daily at bedtime for 5 days, THEN 2 tablets daily at bedtime for 5 days. levothyroxine (SYNTHROID) 50 mcg tablet Take 50 mcg by mouth. miSOPROStol (CYTOTEC) 200 mcg tablet Take 1 tablet by mouth four times daily. sucralfate (CARAFATE) 100 mg/mL suspension Take 10 mL by mouth before meals and at bedtime. cyanocobalamin, vitamin B-12, (B-12 COMPLIANCE) 1,000 mcg/mL kit 1 mL by INJECTION(UNSPECIFIED PARENTERAL ROUTES) route one time a week. ALPRAZolam (XANAX) 0.5 mg tablet Take 0.5 mg by mouth at bedtime as needed. granisetron HCl (KYTRIL INTRAVEN.) 300 mcg. dextroamphetamine-amphetamine (ADDERALL) 20 mg tablet Take 20 mg by mouth twice daily. Omeprazole 40 mg capsule Take 40 mg by mouth twice daily. nystatin cream Apply to affected area twice daily. MULTI-VITAMIN ORAL Take 1 tablet by mouth once daily. No current facility-administered medications for this visit. REVIEW OF SYSTEMS: GENERAL: weight loss (-), malaise(+), fevers (-) HEENT: thrush(-), epistaxis(-) NECK: Negative for neck swelling. RESPIRATORY: Negative for cough, wheezing or shortness of breath (-). CARDIOVASCULAR: chest pain(-), leg swelling(-) or palpitations(-) GI: abdominal discomfort(+), blood in stools/melena/change in bowel habits(-). MUSCULOSKELETAL: joint pain(-), swelling(-), back pain(-) , muscle pain(+). SKIN: (-) for lesions, rash, and itching. PSYCH: sleep disturbance(+), mood disorder(-), recent psychosocial stressors(-). HEMATOLOGY/LYMPHOLOGY: Negative for prolonged bleeding, easy bruising, or swollen nodes (--) NEURO: headaches(-), syncope(-), paralysis(-), seizures(-), tremors (-) All other reviewed and negative other than HPI. Scribe attestation: Katlin Rico LPN (July 04, 2022 11:47 AM) attest that this documentation has been prepared under the direction and in the presence of Johann Echeverria MD Electronically Signed: Johann Echeverria MD July 04, 2022 11:47 AM Physician attestation: IJohann MD, personally performed the services described in this documentation. All medical record entries made by the scribe were at my direction and in my presence. Furthermore, I personally performed the physical exam and documented it as such, and agree that the record reflects my personal performance. Electronically Signed: Johann Echeverria MD July 04, 2022 11:47 AM OBJECTIVE: Pulse 86 Resp 16 Wt 93.4 kg (206 lb) SpO2 99% BMI 31.32 kg/m PHYSICAL EXAMINATION: GENERAL: Well appearing, in no acute distress PSYCH: Mood and affect is appropriate. Awake, alert, and oriented x 3 SKIN: No rash, no vesicles. HEENT: Normocephalic, atraumatic. PERRLA. RESP: Respirations are unlabored CARD: Regular rate. Cap refill <2s. Extremities pink and well perfused at nailbed GI: Abdomen TTP RUQ and flank. MSK: Bilateral upper and lower extremity strength is normal and symmetric. No atrophy or tone abnormalities are noted Lumbar: Straight leg raising in the sitting position is (-) for radicular pain. (+)pain to palpation lumbar paraspinal muscles. Facet loading is (+) bilaterally. (-) pain to palpation over the PSIS, sacroiliac joint provocative maneuvers are (-) for pain reproduction bilaterally. Extremities: Peripheral joint ROM is full and pain free without obvious instability or laxity in all four extremities. No deformities, edema, or skin discoloration. Good capillary refill. Gait: Gait is antalgic NEURO: Bilateral upper and lower extremity coordination are intact. Muscle stretch reflexes are physiologic and symmetric. Plantar response are downgoing. No loss of sensation is noted. ASSESSMENT AND MEDICAL DECISION MAKING: This is a 46 year old female with abd pain, flank pain, suspicious for intercostal neuralgia. Pain does not correspond to surgical site or pathology noted on CT Dx: Chronic prescription opiate use History of gelacio-en-y gastric bypass (primary encounter diagnosis) Anastomotic ulcer Intercostal neuralgia Neuralgia and neuritis Generalized abdominal pain PLAN: didn't tolerate gabapentin in the past (declines pregabalin), so suggest trial of: Orders Placed This Encounter PARoxetine (PAXIL) 10 mg tablet Sig: take 1 tab PO daily with food x 7 days, then increase to 2 tabs PO daily if tolerated. Dispense: 60 tablet Refill: 5 Avoid controlled substances in chronic abd pain treatment where possible Return to clinic (in-person office visit or virtual visit/telemedicine) after 8-12w I spent a total of 45 minutes on the date of the service which included: *preparing to see the patient *oqtu-bc-mucc patient care *completing clinical documentation *obtaining and/or reviewing separately obtained history *performing a medically appropriate examination *counseling and educating the patient/family/caregiver *ordering medications, tests, or procedures *communicating with other HCPs (not separately reported) *independently interpreting results (not separately reported) *communicating results to the patient/family/caregiver *care coordination (not separately reported). Of this, greater than 50% of this was spent in the presence of the patient for purposes of education and counseling regarding the diagnosis and treatment of pain. Patient is aware that any diagnostic testing is best discussed in person to fully explain the significance and resulting treatment plan. Patient is aware that they will need a follow up office visit/virtual visit for proper care. I answered the patient's questions regarding this. I discussed healthy habits, lifestyle changes and physical activity as well as disease prevention/maintenance, including where applicable the impact of tobacco/illicit drugs on pain and its treatment. It will be communicated with the referring or consulting physician above via electronic record, fax, or mail. Patient agrees with above. Johann Echeverria MD July 04, 2022 documented in this encounterMetrohealth [facility]10-18-2022 [facility] 06-30-2022 NoteWestwood Lodge [id number] NoteWestwood Lodge [id number] Note HNO ID: [id number] Author: Anny Colón RN Service: ? Author Type: Registered Nurse Type: Progress Notes Filed: 06/28/2022 7:49 AM Note Text: Patient has a JEFF, requesting Tylenol, sent page to [facility]10-15-2022 [facility]10-14-2022 [facility]10-13-2022 [facility]10-13-2022 NoteWestwood Lodge Hospital 06-25-2022 Miscellaneous Notes* Telephone Encounter - Aubree Lopez RN - 06/25/2022 3:06 PM EDT Patient sent an email stating she was coming into the [facility] emergency department for uncontrolled pain and shakiness. Aubree Lopez RN documented in this encounterMetrohealth [facility]10-12-2022 Miscellaneous Notes* Telephone Encounter - Aubree Lopez RN - 06/25/2022 10:35 AM EDT I spoke to [facility] admitting and they stated there is still no bed available for the patient at this time. I asked if they knew if she was likely to be admitted today and they advised I call back later this afternoon. Aubree Lopez RN documented in this encounterMetrohealth [facility] Center10-10-2022 Miscellaneous Notes* Telephone Encounter - Aubree Lopez RN - 06/23/2022 2:20 PM EDT Patient states she has an additional FMLA form that needs to be completed today. The form was filled out and sent faxed to Dr. Ozuna for signature. Patient updated. Patient requested the form be emailed back to her. Aubree Lopez RN * Telephone Encounter - Aubree Lopez RN - 06/20/2022 12:20 PM EDT I left patient a message advising the FMLA paperwork has been received and that per her request we will make sure she receives a copy of the information. Call back number provided for any further questions or concerns. Aubree Lopez RN * Telephone Encounter - Karen Oakley MA - 06/20/2022 11:30 AM EDT Received FMLA/STD paperwork on 06/19/2022 Pending physician signature and completion. Surgeon: Date of Surgery (if known): Waiting for a surgery date. documented in this encounterMetrohealth [facility]10-06-2022 Miscellaneous Notes* Telephone Encounter - Aubree Lopez RN - 06/19/2022 11:31 AM EDT I spoke to patient and she states she has a PICC line that was placed specifically for TPN and would prefer to keep that over having a Jc placed. Patient is agreeable to admission next week and would prefer it be set up for 06/23/2022. [facility] direct admission set up for 06/23/2022. Aubree Lopez RN * Telephone Encounter - Aubree Lopez RN - 06/19/2022 11:11 AM EDT I called patient and left a message advising Dr. Ozuna would like to have a central line placed outpatient as soon as possible and have her admitted for TPN initiation next week. Call back number provided. Aubree Lopez RN documented in this encounterMetrohealth [facility] Center10-04-2022 NoteHNO ID: [id number] Author: Agatha Baez APRN.CNP Service: Hospital Medicine Author Type: Nurse Practitioner Type: Progress Notes Filed: 06/17/2022 2:22 PM Note Text: DEPARTMENT OF HOSPITAL MEDICINE PROGRESS NOTE SERVICE DATE: 06/17/2022 SERVICE TIME: 1:38 PM Hospital Medicine/Primary Attending: Darline Roa MD NIGHT AND WEEKEND COVERAGE: MAGGY COVERAGE: Days: [phone], please contact via [employer] Nights: [phone] - 3rd floor: please page CC Hospitalist night cover [phone] - 4th floor: please page CC Hospitalist night cover [phone] - 5th floor: please page Hospitalist night cover [phone] Subjective INTERVAL HPI: Day 1 hospitalization for abdominal pain, intractible nausea, vomiting, diarrhea. Pt is post gastric sleeve converted to Gelacio en Y this past December and has been having problems since then. Recent EGD's showed strictures and ulcerations. Pt's hgb has been down trending since admission (9.5>>8.6). In Care Everywhere 05/14 hgb was 11.4). Iron studies ordered by GI show some iron deficiency. IV iron ordered by GI. Narcotic pain meds discontinued by GI and viscous lidocaine ordered instead. Pt instructed to use prior to eating. Denies vomiting, has had 1 BM since admission. Labs reviewed, no electrolyte abnormalities. Pt does have Vitamin D deficiency. GI plans for scope in AM. Discussed discharge tomorrow after scope with patient. Per pt's surgeon and GI, pt does not need narcotic pain medications. 65# weight loss since December. Current Facility-Administered Medications Medication Dose Route Frequency heparin 5,000 Units injection 5,000 Units SUBCUTANEOUS q 12 H NaCl 0.9% iv flush bag 20 mL INTRAVENOUS PRN sodium chloride 0.9 % (flush) 10 mL (BD POSIFLUSH) 10 mL INTRAVENOUS q 12 H sodium chloride 0.9 % (flush) 20 mL (BD POSIFLUSH) 20 mL INTRAVENOUS PRN NaCl 0.9% iv infusion 75 mL/hr INTRAVENOUS CONTINUOUS acetaminophen 650 mg tab(s) (TYLENOL) 650 mg ORAL q 6 H PRN adult multivitamin 10 mL, folic acid 1 mg in NaCl 0.9% 1,000 mL INTRAVENOUS TUE and KECIA diphenhydrAMINE 25 mg injection (BENADRYL) 25 mg INTRAVENOUS q 8 H PRN sucralfate 1 g tab(s) (CARAFATE) 1 g ORAL AC and HS levothyroxine 50 mcg tab(s) (SYNTHROID) 50 mcg ORAL DAILY (6 AM) prochlorperazine 10 mg injection (COMPAZINE) 10 mg INTRAVENOUS q 6 H PRN ondansetron 4 mg tab(s) (ZOFRAN) 4 mg ORAL q 6 H PRN Or ondansetron (PF) 4 mg injection (ZOFRAN) 4 mg INTRAVENOUS q [address] 40 mg tab(s) (PROTONIX) 40 mg ORAL BID AC (0600/1600) aluminum-magnesium hydroxide-simethicone 200-200-20 mg/5 mL 30 mL (MAALOX,MYLANTA,MAG-AL PLUS) 30 mL ORAL q 6 H PRN miSOPROStol 200 mcg tab(s) (CYTOTEC) 200 mcg ORAL w MEALS AND HS ferric gluconate 125 mg in NaCl 0.9% 100 mL (FERRLECIT) 125 mg INTRAVENOUS ONCE AT 6PM Objective PHYSICAL EXAM: BP 128/73 Pulse 80 Temp (Src) 98.1 (Oral) Resp 15 Ht 5' 8 (1.73m) Wt 207 lb 7.3 oz (94.1kg) SpO2 95% BMI 31.55 kg/(m2). O2 Therapy: Room Air Physical Exam Performed GENERAL: Alert, no distress, cooperative SKIN: Skin color, texture, turgor normal. No rashes or lesions. HEAD/SINUSES: No significant findings EYES: PERRLA, EOMI OROPHARYNX: Lips, mucosa, and tongue normal. Teeth and gums normal. Oropharynx normal. NECK: No jugulovenous distention, No carotid bruits, Supple, No thyromegaly, no lymphadenopathy BACK: Back symmetric, Normal curvature, ROM normal, No CVAT. LUNGS: Lungs clear to auscultation, Good diaphragmatic excursion CARDIAC: Normal S1 and S2; no rubs, murmurs, or gallops ABDOMEN: Abdomen soft, tender RUQ, BS normal, No masses or organomegaly EXTREMITIES: Extremities normal, no deformities, edema, clubbing or skin discoloration. Good capillary refill., No ulcers NEURO: no focal deficits PULSES: 2+ radial, 2+ dorsalis pedis Lines, Drains, and Airways Line Duration Central Line Double Lumen 06/16/22 1129 Peripherally Inserted (PICC) Right Arm 1 day Reviewed lines and needs to be continued: REASONS: Intravenous fluids DATA: Diagnostic tests reviewed for today's visit: Most recent labs Most recent imaging Assessment/Plan Problem List Intractable abdominal pain POA: Yes Nausea and vomiting POA: Yes Diarrhea due to malabsorption POA: Yes Iron deficiency anemia POA: Yes Acquired hypothyroidism POA: Yes Anxiety POA: Yes History of Gelacio-en-Y gastric bypass POA: Yes HOSPITAL COURSE: Melina Díaz is a 46 year old female presented with past medical history of sleeve gastrectomy then was subsequently revised to a Gelacio-en-Y gastric bypass 12/2021, severe GJ stricture (s/p dilation x2), hypothyroidism, ADHD, Anxiety, Endometriosis, Kidney stone, Migraines, obesity who presents with nausea, vomiting, diarrhea, abdominal pain, dizziness, and headache since last Thursday. Admitted for pain control and GI consult. Pt not to receive narcotic pain meds as scans and recent EGD's do not show anything to cause pain. St (more content not included)...[facility] [id number] NoteCOVID 19 RESULT: SARS-CoV-2 (Agent of COVID-19) Not Detected by RT-PCR or equivalent method. This test has been authorized by FDA under an Emergency Use Authorization (EUA). INFLUENZA A PCR: Negative for Influenza A by RT-PCR INFLUENZA B PCR: Negative for Influenza B by RT-PCR RSV PCR: Negative for Respiratory Syncytial Virus (RSV) by PCRHuntsman Mental Health InstituteComment on above:Performed By: #### [id number] ####[facility] LABORATORYCLIA [id number] [facility] [place] [place] [address] [facility] 06-16-2022 History of Present illness Narrative* Sanford Ozuna MD - 06/16/2022 9:30 AM EDT Assessment NEW CONSULT PATIENT NAME: Melina Díaz REASON FOR CONSULT: No chief complaint on file. REQUESTING PHYSICIAN: Dr. James DATE of SERVICE: 06/13/2022 TIME of SERVICE: 6:33 PM PCP: Sean Ruiz, Consultation requested by Dr. Fuentes for an opinion regarding gastrojejunal stricture. My final recommendations will be communicated back to the requesting physician by way of shared Medical record or letter to requesting physician via US mail. Chief Complaint: nausea and regurgitation HPI: Melina Díaz is a 46 year old female gastric sleeve performed 10 years ago. Some information taken from Dr Fuentes, independently confirmed in my visit today. In May 2021, she was c/o abdominal pain, nausea, and vomiting. EGD at that time showed antral erosions and mild duodenitis. She continued to have symptoms with multiple ER visits/hospitalizations for dehydration. She eventually underwent surgery in December 2021 at [facility]. With conversion to gastric bypass. After surgery, she states that she was never able to get past the pureed stage of her diet. By March 2022, she reports vomiting 5 out of 7 days per week. She went back to a liquid diet. EGD 04/16/[address] Terry showed anastomotic stricture without ulceration, dilated with 8-10, 12-15, and 15-18mm balloons. Describes 3-5 days of relief after this. Gastric pouch bx showing mild chronic inflammation, neg for H.pylori. She was started on PPI capsules (opened, taking sprinkles) and liquid carafate. She statesthat her sx recurred after only 1 week. Repeat EGD 05/[address] Bose showed ulcerated/stenosed anastomosis, dilated to 15mm. Again, her sx recurred after [address] point[address] Dr[address] Bose recommended TPN and/or feeding tube placement. Pt elected to get a second opinion with Dr. Blanca at [facility].She had another EGD 05/23. I do not have result, but pt states that she was told that the stricture is gone and the ulcer is healed. She continues to struggle with nausea/vomiting. She has a PICC line and is receiving hydration 2 days per week, no TPN. She continues to have abd pain, using oxycodone. PAST MEDICAL HISTORY: PAST MEDICAL HISTORY Diagnosis Date Breast mass 11/04/07 Right, biopsy benign Encounter for cosmetic surgery Endometriosis Excess skin of arm Fracture , ankle Localized adiposity Morbid obesity (HCC) Ovarian cyst induced hypertension Thyroid disorder PAST SURGICAL HISTORY: PAST SURGICAL HISTORY Procedure Laterality Date ASSIST ONLY x3 LAPAROSCOPIC CHOLEYCYSTECTOMY 2004 Cholecystectomy, lap PAST SURGICAL HISTORY OF 10/28/2011 gastric sleeve PAST SURGICAL HISTORY OF 2011 excision of goiter PAST SURGICAL HISTORY OF thyroid mass removed TOTAL ABDOM HYSTERECTOMY 05/01/2010-05/2011 Hysterectomy, partial uterus then completion FAMILY HISTORY: FAMILY HISTORY Problem Relation Age of Onset Thyroid Other 1st cousin - ? Grave's COPD Mother Hypertension Mother other (hypoglycemia) Mother Emphysema Father Coronary Artery Disease Father Ischemic Heart Disease Father 58 s/p stents Hypertension Father Asthma Sister 1/2 sister with female cysts other (unkown) Sister BiPolar-Bulemia None Brother 1/2--unkown SOCIAL HISTORY: Social History Tobacco Use Smoking status: Never Smokeless tobacco: Never Vaping Use Vaping Use: Never used Substance Use Topics Alcohol use: Yes Drug use: No PHYSICAL EXAMINATION: General appearance: Well appearing, alert, in no acute distress, well-hydrated, well nourished. andOverweight Skin: Skin color, texture, turgor normal, no suspicious rashes or lesions Abdomen: Normal abdominal exam, slightly obese, no scars, no tenderness IMAGING: upper GI series images but not report - my interpretation - stenosis, normal size, crater that is likely an ulcer. LABS: Pathology Gastric Mucosa - 05/23/2022 ([facility]) Surgical Pathology Consultation Final Pathologic Diagnosis Gastric biopsy: Gastric mucosa without significant pathologic change. Negative for intestinal metaplasia; no significant inflammatory activity identified. No Helicobacter pylori organisms identified on routine stain Clinical History Dysphagia, H. Pylori screen. PERTINENT TESTIN05/23/2022 EGJ with Biopsy(Lola) Date of prodecure: 05/23/22 Preoperative Diagnosis: Persistent vomiting and dysphagia s/p RYGB Postoperative Diagnosis: Normal appearing pouch and GJ Details of Procedure: Patient was brought to the operative suite and placed in the left lateral decubitus position. A bite block was inserted. Conscious sedation was administered by the anesthesia provider. Once adequate sedation had been achieved, the endoscope was gently advanced past the oropharynx and into the esophagus without issue. The esophagus was inspected and appeared normal throughout. The Z-line was located at 38 cm from the incisors. The scope was then advanced into the gastric pouch which had a normalappearance. The GJ was inspected and it had a very normal appearnace. The caliber was normal. The scope passed through without any issue at all. The gelacio limb was inspected and was also normal. A biopsy was taken using cold forceps in the pouch and sent for H pylori testing. The scope was then slowly brought back and withdrawn all the way without issues. The patient was transferred to the recovery room in satisfactory condition. The patient tolerated the procedure well. 04/24/2022 EGD ([facility]- original record under scanned documents) Findings: The Z-line was regular and was found 35cm from the incisors. Evidence of a Gelacio-en-Y gastrojejunostomy was found. The gastrojejunal anastomosis was characterized by congestion, erythema, friable mucosa, mild stenosis and ulceration. This was traversed. The cvhtu-dq-[id number] limb was characterized by healthy appearing mucosa. a TTS dilator was passes through the scope. Dilation with a 12-13.5-15mm balloon dilator was performed to 15mm, The dilation site was examined following endoscope reinsertion and showed moderate improvement in luminal narrowing. Estimated blood loss was minimal. Exam of jejunum was otherwise normal. -No specimens collected OP REPORT REVIEW Surgidac hiatal closure. 2.5 cm linear stapled GJ. 75 cm BP limb, 100 cm Gelacio. IMPRESSION: GJ stenosis, ulceration. PLAN: Ulcer - add misoprostol. No NSAIDs, as will worsten. No opiates as this is chronic pain. Check Gastrin. Check urine nicotine. Opiate use - consult to pain management. Stenosis - check CT scan to assess left gastric artery presence. EGD possible dilation. Vomiting - vitamin and nutrition labs ordered. Based on results will determine next step. Will likely need revision as dilations have not previously stuck. Need EGD first to see pouch length, dilate GJ. May need preop nutrition optimization. I spent a total of 47 minutes on the date of the service which included preparing to see the patient, [id number] patient care, completing clinical documentation, obtaining and/or reviewing separately obtained history, performing a medically appropriate examination, counseling and educating the pat ient/family/caregiver, ordering medications, tests, or procedures, communicating with other HCPs (not separately reported), independently interpreting results (not separately reported), communicatingresults to the patient/family/caregiver, and care coordination (not separately reported). Sanford Ozuna MD documented in this encounterMetrohealth [facility] Center09-21-2022 Miscellaneous Notes* Telephone Encounter - Jacey Hoffman - 06/04/2022 10:57 AM EDT Received outside medical records form [facility] 12/2021 & 04/2022, scanned in [employer], please review. Patient has new consult with Dr. Ozuna on 06/16/2022. documented in this encounterMetrohealth Cleveland [facility] Center08-21-2022 Discharge summary Author Ashwin Macias [facility] May 04, 2022 9:21am Note Date/Time May 04, 2022 9: 15am [facility] [address] [place] [address] Discharge Summary Signed Patient: Melina Díaz MR#: [id number] : 1975 Acct:[id number] Age/Sex: 46 / F Adm Date: 2 Loc: Room: [address] [place] [address]: Ashwin Macias MD Copies to: MD Ashwin Alberts MD~ Providers Date of Discharge: 05/04/22 Discharging Provider: Ashwin Macias Primary Care Provider: Yg James Consults: 04/29/22 09:27 Consult to Gastroenterology Routine 04/29/22 12:18 Consult to Dietitian Routine Discharge Diagnosis (1) Intractable abdominal pain: (2) Intractable nausea and vomiting: (3) Hypokalemia: (4) Hypomagnesemia: (5) DVT prophylaxis: (6) History of gastric bypass: (7) Pyloric stenosis: Final Diagnosis Final Discharge Diagnosis: As listed above Summary Hospital Course Hospital course: Mrs. Vega is a 46-year-old female with previous diagnosis of gastric sleeve followed by gastric bypass surgery. Patient also is known to have pyloric stenosis for which she had 2 EGDs over the last 3 weeks. The first time she hadpyloric dilatation done at . The second EGD done at a week after that which did not show any significant stenosis. Patient was sent home but continued to have intermittent nausea and vomiting as well as epigastric pain therefore she presented to [facility] and I accepted her. Patient was made initially n.p.o. and started on IV fluid, pain medication and antiemetics. Patient was seen by GI service. CAT scan did not show any significant abnormalities other than probable pancreatic edema suggestive of pancreatitis. Her amylase and lipase are normal. GI service did not recommend repeat EGD. Patient also was having diarrhea which had resolved within 48 hours I called her bariatric surgeon Dr. Bose and spoke to him personally on the phone. I explained her presentation as well as imaging and lab results. He did not feel that the patient had recurrent pyloric stenosis. He did not recommend urgent EGD. He did not recommend transfer to . He recommended to keep patient on multiple small meals daily, discharge home andfollow-up with him in a week or 2. He is considering insertion of a feeding tube. He is considering revision of bypass. Patient continues to be symptomatic up until the last 24 hours when she became less symptomatic. She continues to have nausea and intermittent vomiting but not to a degree that she had when she came in. Her abdominal pain has subsided. Patient has a chronic epigastric pain. X-ray showed constipation. Patient has been taking Metamucil. I will add Senokot. Patient will be discharged home. She has an appointment follow-up with Dr. Bose Patient has GI complex medical issues as listed above, mainly managed at by Dr. Bose and his team. Patient had felt noticeably better over the last 24 to 36 hours. I do not have any clear or strong clinical justification to extend inpatient hospitalization. Patient however will require close and the frequent monitoring as well as additional work-up, investigation and therapeutic intervention that could take place from this point on post discharge. Patient will need to follow-up with Dr. Conner. Time Spent with Patient Time spent providing/coordinating discharge services (# min): 45 Exam Physical Exam Vital Signs: Temp Pulse Resp BP Pulse Ox O2 Del Method 98.0 F 71 18 145/80 H 97 Room Air 05/04/22 08:03 05/04/22 08:03 05/04/22 08:03 05/04/22 08:03 05/04/22 08:03 05/04/22 08:03 Narrative: [pt is awake and alert. oriented to place, time and person HEENT: [place] conjunctiva and NL buccal mucosa Neck: Supple, no tenderness Endocrine: No Thyromegaly. Vascular: No JVD or carotid bruit. Lymphatic: No cervical lymphadenopathy. Chest: CTA no DTP. Heart RRR, no extra sound or murmur. Abd: Soft, mild tenderness in the epigastric and right upper quadrant. No guarding, no rebound. No rigidity LE: No cyanosis or clubbing, no varices or edema. Neuro: A A O. Nl speech, comprehension and attention. Nl and symetrical motor and tone examination through out. []] Discharge Plan Discharge Plan Patient Disposition: Home Activity: No Activity Restriction Additional Instructions: I may not have addressed or treated all of your medical illnesses or the abnormal blood work or imaging studies during this hospitalization. Please ask your primary care provider to obtain [facility] records entirely to follow up on all of the abnormal physical, laboratory, and imaging findings that I have not addressed. Please follow-up with your surgeon Dr. Bose. Please return back to the emergency room or seek medical attention if your symptoms worsen or return. Discharging you from [facility] does not mean that your medical care ends here and now. You may still need additional monitoring, work up, investigation, and treatment plan to be handled from this point on by out patient providers including your primary care provider and specialists. For any medication question, please contact your retail pharmacist or your primary care provider. Thank you. Stand Alone Forms: Work/School Release Form Prescriptions: New Ensure Active High Protein Liquid 1 ea PO BID Qty: 9936 2RF Rx Instructions: Take 1 Bottle twice a day Dispense 2 dozen bottles Metamucil [place] Powder 1 tbsp PO BID PRN (Reason: constipation) Qty: 575 2RF sennosides [Senokot] 8.6 mg tablet 8.6 mg PO BID Qty: 60 2RF Continued methocarbamol 500 mg tablet 500 mg PO Q8HR Label Comments: take 1 tablet by mouth every 8 hours sucralfate [Carafate] 100 mg/mL Suspension 10 ml PO QID Rx Instructions: swish in mouth and swallow; use after food/drink oxycodone 5 mg/5 mL solution 5 mg PO Q6HR Label Comments: take 5 milliliters by mouth every 6 hours if needed for severe pain omeprazole 40 mg capsule,delayed release(DR/EC) 40 mg PO BID Label Comments: OPEN 1 CAPSULE AND SPRINKLE IN APPLESAUCE OR PUDDING take by mouth every morning before breakfast cyanocobalamin (vitamin B-12) [Dodex] 1,000 mcg/mL solution 1,000 mcg IM QWEEK Label Comments: inject 1 milliliter ( 1000 MCG ) intramuscularly TWICE A WEEK dextroamphetamine-amphetamine 20 mg tablet 20 mg PO BID Label Comments: take 1 tablet by mouth twice a day levothyroxine [Synthroid] 50 mcg Tablet 50 mcg PO DAILY calcium citrate 250 mg calcium Tablet 250 mg PO BID eletriptan [Relpax] 40 mg Tablet 40 mg PO Q2H PRN (Reason: Headache) diphenhydramine HCl [Benadryl] 25 mg Capsule 25 mg PO TID MDD RASH PRN (Reason: HIVES) Changed ondansetron 8 mg tablet,disintegrating 8 mg translingual Q8HR PRN (Reason: nausea and vomiting) Qty: 1 0RF Label Comments: dissolve 1 tablet by mouth every 8 hours if needed for nausea and vomiting Held promethazine 25 mg tablet 25 mg PO Q8HR Hold Instructions: Resume on 05/19/22. Please do not take this medication while you are taking Zofran at the same time Label Comments: take 1 tablet by mouth every 8 hours if needed for nausea and vomiting Discontinued amoxicillin-pot clavulanate 875-125 mg Tablet 1 tab PO Q12H Follow Up: Brittany Bose MD [Referring] - Yg James MD [Primary Care Provider] - (Your doctor's office has requestedthat you call them on discharge to schedule a follow-up appointment. You shouldbe seen in the next 7-10 days.) Documented By: Aswhin Macias MD 05/04/22914 Signed By: <Electronically signed by Ashwin Macias MD> 05/04/22920 [facility] Work Phone: [phone] Progress note Author Ashwin Macias [facility] May 03, 2022 10:13am Note Date/Time May 03, 2022 10 :13am [facility] [address] [place] [address] Hospitalist Progress Note Signed Patient: Melina Díaz MR#: [id number] : 1975 Acct:[id number] Age/Sex: 46 / F Adm Date: 2 Loc: Room: [address] [place] [address] Type: ADM IN Attending Dr: Ashwin Macias MD Copies to: ~ Date of Service: 05/03/2022 Subjective Subjective Narrative: Patient feeling better but continues to have intermittent nausea and emesis. She did very well last evening but this morning she feels sick. No bowel movement. Improvement of her abdominal pain. No fever or chills Exam Physical Exam Vital Signs: Temp Pulse Resp BP Pulse Ox O2 Del Method 97.6 F 65 16 129/89 95 Room Air 05/03/22 09:10 05/03/22 09:10 05/03/22 09:10 05/03/22 09:10 05/03/22 09:10 05/03/22 09:10 Narrative: [pt is awake and alert. oriented to place, time and person HEENT: Hornell conjunctiva and NL buccal mucosa Neck: Supple, no tenderness Endocrine: No Thyromegaly. Vascular: No JVD or carotid bruit. Lymphatic: No cervical lymphadenopathy. Chest: CTA no DTP. Heart RRR, no extra sound or murmur. Abd: Soft, mild tenderness in the epigastric and right upper quadrant. No guarding, no rebound. No rigidity LE: No cyanosis or clubbing, no varices or edema. Neuro: A A O. Nl speech, comprehension and attention. Nl and symetrical motor and tone examination through out. []] Objective Lab Results CBC & Chem 7: 05/01/22 07:37 05/01/22 07:37 Meds Allergies and Active Meds Allergies adhesive tape Allergy (Verified 08/09/21 08:07) Unknown Reaction aspartame Allergy (Verified 04/29/22 01:04) Headache gabapentin Allergy (Verified 04/29/22 01:04) Swelling of Lip/Tongue/Throat ketorolac [From Toradol] Allergy (Verified 04/29/22 01:04) Edema tramadol Allergy (Verified 04/29/22 01:04) Hives Active Meds: Active Medications Generic Name Dose Route Start Last Admin Trade Name Freq PRN Reason Stop Dose Admin Acetaminophen 650 mg 04/29/22 09:27 Acetaminophen 325 Mg Tablet PO 04/29/23 09:26 Q6HR PRN Pain Scale 1 - 3 or fever Cyanocobalamin 1,000 mcg 05/06/22 09:00 Cyanocobalamin 1,000 Mcg/Ml Vial IM 05/06/23 08:59 Tu@0900 WOLF Cyclobenzaprine HCl 10 mg 04/29/22 22:00 04/30/22 09:40 Cyclobenzaprine 10 Mg Tablet PO 04/29/23 21:59 Not Given Q8HR WOLF Diphenhydramine HCl 12.5 mg 05/01/22 09:42 05/03/22 08:49 Diphenhydramine 50 Mg/Ml Vial IV-PUSH 05/01/23 09:41 12.5 mg Q6H PRN Administration Allergic Symptoms Enoxaparin Sodium 40 mg 04/29/22 10:00 05/03/22 08:51 Enoxaparin 40 Mg/0.4 Ml Syringe SUBCUT 04/29/23 09:59 40 mg DAILY@10 WOLF Administration Famotidine 20 mg 05/03/22 21:00 Famotidine 20 Mg Tablet PO 05/03/23 20:59 BID WOLF Guaifenesin 10 ml 04/30/22 11:19 Guaifenesin Syrup 10 Ml Udc PO 04/30/23 11:18 Q4H PRN Cough Home Med 1 each 04/29/22 08:06 04/29/22 08:04 Home Meds Kept In Pharmacy MISCELLANE 04/29/23 08:05 1 each PRN PRN Administration zz.Pharmacy Note Hydromorphone HCl 0.5 mg 08/16/22 16:16 05/03/22 06:22 Hydromorphone 0.5 Mg/0.5 Ml Syringe IV-PUSH 0.5 mg Q4H PRN Administration Pain Scale 8 - 10 Lactated Ringer's 1,000 mls @ 50 mls/hr 04/29/22 09:30 05/02/22 13:41 Lactated Ringers IV 04/29/23 09:29 50 mls/hr .Q20H WOLF Administration Ceftriaxone Sodium 1 gm in 50 mls @ 100 mls/hr 04/29/22 09:45 05/03/22 08:51 Rocephin IV 100 mls/hr Q24H WOLF Administration Levothyroxine Sodium 50 mcg 04/30/22 06:30 05/03/22 06:21 Levothyroxine 50 Mcg Tablet PO 04/30/23 06:29 50 mcg DAILY@0630 WOLF Administration Oxycodone HCl 5 mg 04/29/22 09:27 05/03/22 08:50 Oxycodone Ir 5 Mg Tablet PO 5 mg Q6HR PRN Administration Pain Scale 4 - 7 Promethazine HCl 12.5 mg 04/29/22 16:16 05/03/22 06:28 Promethazine 25 Mg/Ml Vial IV-PUSH 04/29/23 16:15 12.5 mg Q6H PRN Administration Nausea And Vomiting Sodium Chloride 0 ml 04/29/22 01:03 05/03/22 06:30 Sodium Chloride 0.9 % 10 Ml Syringe IV-PUSH 04/29/23 01:02 10 ml PRN PRN Administration Flush Sodium Chloride 10 ml 04/29/22 16:16 05/02/22 17:52 Sodium Chloride 0.9 % 10 Ml Vial.Pf INJECTION 04/29/23 16:15 10 ml PRN PRN Administration Promethazine Dilution Sucralfate 1 gm 04/29/22 18:00 05/03/22 08:51 Sucralfate Susp 1 Gm/10 Ml Udc PO 04/29/23 17:59 1 gm QID WOLF Administration A&P - Hospitalist Assessment/Plan (1) Intractable abdominal pain: (2) Intractable nausea and vomiting: (3) Hypokalemia: (4) Hypomagnesemia: (5) DVT prophylaxis: Plan Patient continues to be symptomatic requiring extension of her inpatient stay. She felt well last evening but this morning she feels sick and she is going to throw up. She continues to require IV fluid infusion No additional imaging, diagnostic or therapeutic recommendation were provided byher bariatric surgeon . Please refer to my note yesterday Dr. Conner has virtual visit with the patient on Thursday. He did not recommend transfer to . He recommended the patient to have PEG tube or J-tube inserted within the next week or 2. This will need to be done at . Patient is able tokeep some of her Ensure down. I would not expect patient that she is going to have remarkable or significant recovery from this retractable a problem that is likely related to post gastric bypass expected issues. Continue Pepcid and Carafate. Her abdomen is very benign. Expected discharge from the Documented By: Ashwin Macias MD 05/03/22 1011 Signed By: <Electronically signed by Ashwin Macias MD> 05/03/22 1013 [facility] Work Phone: [phone] Progress note Author Ashwin Macias [facility] May 02, 2022 8:35am Note Date/Time May 02, 2022 8: 35am [facility] [address] [place] [address] Hospitalist Progress Note Signed Patient: Melina Díaz MR#: [id number] : 1975 Acct:[id number] Age/Sex: 46 / F Adm Date: 2 Loc: Room: [address] [place] [address] Type: ADM IN Attending Dr: Ashwin Macias MD Copies to: ~ Date of Service: 05/02/2022 Subjective Subjective Narrative: Patient is feeling somewhat better. Last evening she vomited again but that this morning she believes that she is able to keep fluid down. No fever or chills. No hematemesis or melena. No cough or congestion Exam Physical Exam Vital Signs: Temp Pulse Resp BP Pulse Ox O2 Del Method 97.7 F 60 18 120/78 95 Room Air 05/02/22 08:00 05/02/22 08:00 05/02/22 08:00 05/02/22 08:00 05/02/22 08:00 05/02/22 08:00 Narrative: [pt is awake and alert. oriented to place, time and person HEENT: Hornell conjunctiva and NL buccal mucosa Neck: Supple, no tenderness Endocrine: No Thyromegaly. Vascular: No JVD or carotid bruit. Lymphatic: No cervical lymphadenopathy. Chest: CTA no DTP. Heart RRR, no extra sound or murmur. Abd: Soft, mild tenderness in the epigastric and right upper quadrant. No guarding, no rebound. No rigidity LE: No cyanosis or clubbing, no varices or edema. Neuro: A A O. Nl speech, comprehension and attention. Nl and symetrical motor and tone examination through out. []] Objective Lab Results CBC & Chem 7: 05/01/22 07:37 05/01/22 07:37 Microbiology Results Microbiology 04/29/22 07:30 Urine - Clean-Voided Midstream Urine Culture - Final 50,000 colonies/ml mixed bacterial skin contaminants 2 Days Meds Allergies and Active Meds Allergies adhesive tape Allergy (Verified 08/09/21 08:07) Unknown Reaction aspartame Allergy (Verified 04/29/22 01:04) Headache gabapentin Allergy (Verified 04/29/22 01:04) Swelling of Lip/Tongue/Throat ketorolac [From Toradol] Allergy (Verified 04/29/22 01:04) Edema tramadol Allergy (Verified 04/29/22 01:04) Hives Active Meds: Active Medications Generic Name Dose Route Start Last Admin Trade Name Freq PRN Reason Stop Dose Admin Acetaminophen 650 mg 04/29/22 09:27 Acetaminophen 325 Mg Tablet PO 04/29/23 09:26 Q6HR PRN Pain Scale 1 - 3 or fever Cyanocobalamin 1,000 mcg 05/06/22 09:00 Cyanocobalamin 1,000 Mcg/Ml Vial IM 05/06/23 08:59 Tu@0900 WOLF Cyclobenzaprine HCl 10 mg 04/29/22 22:00 04/30/22 09:40 Cyclobenzaprine 10 Mg Tablet PO 04/29/23 21:59 Not Given Q8HR WOLF Diphenhydramine HCl 12.5 mg 05/01/22 09:42 05/02/22 05:25 Diphenhydramine 50 Mg/Ml Vial IV-PUSH 05/01/23 09:41 12.5 mg Q6H PRN Administration Allergic Symptoms Enoxaparin Sodium 40 mg 04/29/22 10:00 05/01/22 09:13 Enoxaparin 40 Mg/0.4 Ml Syringe SUBCUT 04/29/23 09:59 40 mg DAILY@10 WOLF Administration Famotidine 20 mg 04/29/22 21:00 05/02/22 08:02 Famotidine/Pf 20 Mg/2 Ml Vial IV-PUSH 04/29/23 20:59 20 mg Q12HR WOLF Administration Guaifenesin 10 ml 04/30/22 11:19 Guaifenesin Syrup 10 Ml Udc PO 04/30/23 11:18 Q4H PRN Cough Home Med 1 each 04/29/22 08:06 04/29/22 08:04 Home Meds Kept In Pharmacy MISCELLANE 04/29/23 08:05 1 each PRN PRN Administration zz.Pharmacy Note Hydromorphone HCl 0.5 mg 04/29/22 16:16 05/02/22 08:02 Hydromorphone 0.5 Mg/0.5 Ml Syringe IV-PUSH 0.5 mg Q4H PRN Administration Pain Scale 8 - 10 Lactated Ringer's 1,000 mls @ 75 mls/hr 04/29/22 09:30 05/01/22 22:24 Lactated Ringers IV 04/29/23 09:29 75 mls/hr .[id number] WOLF Administration Ceftriaxone Sodium 1 gm in 50 mls @ 100 mls/hr 04/29/22 09:45 05/01/22 09:44 Rocephin IV Infused Q24H [facility] Infusion Levothyroxine Sodium 50 mcg 04/30/22 06:30 05/02/22 06:56 Levothyroxine 50 Mcg Tablet PO 04/30/23 06:29 Not Given DAILY@0630 WOLF Oxycodone HCl 5 mg 04/29/22 09:27 Oxycodone Ir 5 Mg Tablet PO Q6HR PRN Pain Scale 4 - 7 Promethazine HCl 12.5 mg 04/29/22 16:16 05/02/22 05:26 Promethazine 25 Mg/Ml Vial IV-PUSH 04/29/23 16:15 12.5 mg Q6H PRN Administration Nausea And Vomiting Sodium Chloride 0 ml 04/29/22 01:03 05/02/22 05:28 Sodium Chloride 0.9 % 10 Ml Syringe IV-PUSH 04/29/23 01:02 10 ml PRN PRN Administration Flush Sodium Chloride 10 ml 04/29/22 09:31 05/02/22 08:02 Sodium Chloride 0.9 % 10 Ml Vial.Pf INJECTION 04/29/23 09:30 10 ml PRN PRN Administration To dilute Pepcid Sodium Chloride 10 ml 04/29/22 16:16 05/02/22 05:27 Sodium Chloride 0.9 % 10 Ml Vial.Pf INJECTION 04/29/23 16:15 10 ml PRN PRN Administration Promethazine Dilution Sucralfate 1 gm 04/29/22 18:00 05/02/22 08:02 Sucralfate Susp 1 Gm/10 Ml Udc PO 04/29/23 17:59 1 gm QID WOLF Administration A&P - Hospitalist Assessment/Plan (1) Intractable abdominal pain: (2) Intractable nausea and vomiting: (3) Hypokalemia: (4) Hypomagnesemia: (5) DVT prophylaxis: Plan Patient continues to be symptomatic requiring extension of her inpatient stay No additional imaging, diagnostic or therapeutic recommendation were provided byher bariatric surgeon . Please refer to my note yesterday Dr. Conner has virtual visit with the patient today at 11:00 For nutritional support I added Ensure [address] Bose recommended to discharge patient home when she is able to keep food down and follow-up with him in a week or 2. If she continues to be symptomatic he would recommend PEG or J-tube feed to support her nutrition need over longer period of time Continue Pepcid and Carafate. Her abdomen is very benign. Expected discharge tomorrow. Documented By: Ashwin Macias MD 05/02/2233 Signed By: <Electronically signed by Ashwin Macias MD> 05/02/2235 [facility] Work Phone: [phone] 338-127808-18-2022 Progress note Author Ashwin Macias [facility] May 01, 2022 4:02pm Note Date/Time May 01, 2022 4: 02pm [facility] [address] [place] [address] Progress Note Signed Patient: Melina Díaz MR#: [id number] : 1975 Acct:[id number] Age/Sex: 46 / F Adm Date: 2 Loc: 3T Room: [address] [place] [address] Type: ADM IN Attending Dr: Ashwin Macias MD Copies to: ~ Date of Service: 05/01/2022 Progress Narrative Note PROGRESS NOTE Progress Note: Her bariatric Surgeon Dr. Conner called me back. I gave him report on the patient's presentation and the clinical status. He stated that the patient had 2 EGDs within the last 2 weeks. The first 1 patient ended up needing pyloric dilatation. Patient returned to for persistent symptoms therefore another EGD was done. He stated that he did not see any evidence of restenosis and at this time he does not believe that the patient has any mechanical obstruction or mechanical issues causing her GI symptoms. He does not recommend another EGD at this time. He does not recommend transferring patient to stating that he will not do anything different. Is suspected that her symptoms may be psychogenic in nature. I suspect that hersymptoms may be related to food intolerance. He stated that if the patient continues to have GI symptoms and unable to keep anything down she would be candidate for feeding tube to support her nutritionalneeds. He is planning to have a virtual visit with her tomorrow while she is in the hospital and he will let me know if there is anything else need to be done. Documented By: Ashwin Macias MD 05/01/22 1559 Signed By: <Electronically signed by Ashwin Macias MD> 05/01/22 4228 [facility] Work Phone: [phone] 221-788608-18-2022 Progress note Author Ashwin Macias [facility] May 01, 2022 1:38pm Note Date/Time May 01, 2022 1: 38pm [facility] [address] [place] [address] Progress Note Signed Patient: Melina Díaz MR#: [id number] : 1975 Acct:[id number] Age/Sex: 46 / F Adm Date: 2 Loc: 3T Room: [address] [place] [address] Type: ADM IN Attending Dr: Ashwin Macias MD Copies to: ~ Date of Service: 05/01/2022 Progress Narrative Note PROGRESS NOTE Progress Note: Earlier I called her bariatric surgeon Dr. Conner at at [phone]. I requested to speak with him to seek his opinion and recommendation as to what needs to be done regarding Melina's ongoing nausea, vomiting and epigastric pain. His Ingram Elvia stated that he is rounding in the hospital. I left myprivate cell number for him to call me when is able to. Documented By: Ashwin Macias MD 05/01/221335 Signed By: <Electronically signed by Ashwin Macias MD> 05/01/22 3889 [facility] Work Phone: [phone] Progress note Author Ashwin Macias [facility] May 01, 2022 8:21am Note Date/Time May 01, 2022 8: 18am [facility] [address] [place] [address] Hospitalist Progress Note Signed Patient: Melina Díaz MR#: [id number] : 1975 Acct:[id number] Age/Sex: 46 / F Adm Date: 2 Loc: Room: [address] [place] [address] Type: ADM IN Attending Dr: Ashwin Macias MD Copies to: ~ Date of Service: 05/01/2022 Subjective Subjective Narrative: Patient continues to have symptoms. She continues to have upper abdominal discomfort associated with nausea and inability to take her food. No fever or chills. No hematemesis or melena. No diarrhea. No chest pain or palpitation. No cough or congestion Exam Physical Exam Vital Signs: Temp Pulse Resp BP Pulse Ox O2 Del Method 97.4 F L 68 18 121/78 97 Room Air 05/01/22 04:00 05/01/22 04:00 05/01/22 04:00 05/01/22 04:00 05/01/22 04:00 05/01/22 04:00 Narrative: [pt is awake and alert. oriented to place, time and person. In mild distress secondary to epigastric pain HEENT: Hornell conjunctiva and NL buccal mucosa Neck: Supple, no tenderness Endocrine: No Thyromegaly. Vascular: No JVD or carotid bruit. Lymphatic: No cervical lymphadenopathy. Chest: CTA no DTP. Heart RRR, no extra sound or murmur. Abd: Soft, mild tenderness in the epigastric area. Mild tenderness in the periumbilical area as well. No guarding, no rebound LE: No cyanosis or clubbing, no varices or edema. Neuro: A A O. Nl speech, comprehension and attention. Nl and symetrical motor and tone examination through out. []] Objective Lab Results CBC & Chem 7: 05/01/22 07:37 04/30/22 06:35 Microbiology Results Microbiology 04/29/22 07:30 Urine - Clean-Voided Midstream Urine Culture - Preliminary 40,000 colonies/ml mixed bacterial skin contaminants 1 Day Meds Allergies and Active Meds Allergies adhesive tape Allergy (Verified 08/09/21 08:07) Unknown Reaction aspartame Allergy (Verified 04/29/22 01:04) Headache gabapentin Allergy (Verified 04/29/22 01:04) Swelling of Lip/Tongue/Throat ketorolac [From Toradol] Allergy (Verified 04/29/22 01:04) Edema tramadol Allergy (Verified 04/29/22 01:04) Hives Active Meds: Active Medications Generic Name Dose Route Start Last Admin Trade Name Freq PRN Reason Stop Dose Admin Acetaminophen 650 mg 04/29/22 09:27 Acetaminophen 325 Mg Tablet PO 04/29/23 09:26 Q6HR PRN Pain Scale 1 - 3 or fever Cyanocobalamin 1,000 mcg 05/06/22 09:00 Cyanocobalamin 1,000 Mcg/Ml Vial IM 05/06/23 08:59 Tu@0900 WOLF Cyclobenzaprine HCl 10 mg 04/29/22 22:00 04/30/22 09:40 Cyclobenzaprine 10 Mg Tablet PO 04/29/23 21:59 Not Given Q8HR WOLF Diphenhydramine HCl 12.5 mg 05/01/22 08:13 Diphenhydramine 50 Mg/Ml Vial IV-PUSH Q6H PRN Itshing Enoxaparin Sodium 40 mg 04/29/22 10:00 04/30/22 09:41 Enoxaparin 40 Mg/0.4 Ml Syringe SUBCUT 04/29/23 09:59 40 mg DAILY@10 WOLF Administration Famotidine 20 mg 04/29/22 21:00 05/01/22 08:09 Famotidine/Pf 20 Mg/2 Ml Vial IV-PUSH 04/29/23 20:59 20 mg Q12HR WOLF Administration Guaifenesin 10 ml 04/30/22 11:19 Guaifenesin Syrup 10 Ml Udc PO 04/30/23 11:18 Q4H PRN Cough Home Med 1 each 04/29/22 08:06 04/29/22 08:04 Home Meds Kept In Pharmacy MISCELLANE 04/29/23 08:05 1 each PRN PRN Administration zz.Pharmacy Note Hydromorphone HCl 0.5 mg 04/29/22 16:16 05/01/22 08:08 Hydromorphone 0.5 Mg/0.5 Ml Syringe IV-PUSH 0.5 mg Q4H PRN Administration Pain Scale 8 - 10 Lactated Ringer's 1,000 mls @ 75 mls/hr 04/29/22 09:30 04/30/22 17:49 Lactated Ringers IV 04/29/23 09:29 100 mls/hr .[id number] WOLF Administration Ceftriaxone Sodium 1 gm in 50 mls @ 100 mls/hr 04/29/22 09:45 04/30/22 18:11 Rocephin IV Infused Q24H WOLF Infusion Levothyroxine Sodium 50 mcg 04/30/22 06:30 04/30/22 09:40 Levothyroxine 50 Mcg Tablet PO 04/30/23 06:29 Not Given DAILY@0630 WOLF Oxycodone HCl 5 mg 04/29/22 09:27 Oxycodone Ir 5 Mg Tablet PO Q6HR PRN Pain Scale 4 - 7 Pregabalin 50 mg 04/30/22 17:45 Pregabalin 50 Mg Capsule PO 04/30/22 17:46 ONCE ONE Promethazine HCl 12.5 mg 04/29/22 16:16 05/01/22 04:48 Promethazine 25 Mg/Ml Vial IV-PUSH 04/29/23 16:15 12.5 mg Q6H PRN Administration Nausea And Vomiting Sodium Chloride 0 ml 04/29/22 01:03 05/01/22 02:57 Sodium Chloride 0.9 % 10 Ml Syringe IV-PUSH 04/29/23 01:02 10 ml PRN PRN Administration Flush Sodium Chloride 10 ml 04/29/22 09:31 05/01/22 08:09 Sodium Chloride 0.9 % 10 Ml Vial.Pf INJECTION 04/29/23 09:30 10 ml PRN PRN Administration To dilute Pepcid Sodium Chloride 10 ml 04/29/22 16:16 04/30/22 20:49 Sodium Chloride 0.9 % 10 Ml Vial.Pf INJECTION 04/29/23 16:15 10 ml PRN PRN Administration Promethazine Dilution Sucralfate 1 gm 04/29/22 18:00 04/30/22 22:15 Sucralfate Susp 1 Gm/10 Ml Udc PO 04/29/23 17:59 1 gm QID WOLF Administration A&P - Hospitalist Assessment/Plan (1) Intractable abdominal pain: (2) Intractable nausea and vomiting: (3) Hypokalemia: (4) Hypomagnesemia: (5) DVT prophylaxis: Plan Recurrent nausea and vomiting. Diarrhea. Patient had pyloric dilatation at last week. 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 Borderline hypokalemia and hypomagnesemia. Potassium and magnesium supplementation intravenously. Monitor electrolytes, kidney function, WBC and hemoglobin CAT scan showed mild pancreatic edema. Amylase and lipase is normal. Clear liquid diet. Given the lack of significant improvement would call her GI surgeon Dr. Bose at and seek his input and recommendation specifically regarding transfer to for possible need of EGD and repeat pyloric dilatation. Drug-seeking behaviors. Patient appears to be comfortable as I enter the room but subsequently reports that she is feeling sick. Patient is requesting certain medications by name to be given intravenously including Phenergan not Zofran, Dilaudid not morphine, Benadryl IV not p.o. I made the patient aware of potential side effects including OFFICE ANALYST depression, respiratory depression, cardiac depression, cardiac dysrhythmia and such. Patient gets satisfied with my reasoning not to overmedicate her but she subsequently calls nursing staff and asks for medications to be given at more frequent timeframe. Patient is willing to take oral risk associated for the sake of symptoms control. Patient would likely need to have additional work-up, investigation and therapeutic intervention that will be determined based on the clinical progression and a follow-up test result. If the patient continues to improve she will be discharged home to follow-up with GI and the surgical team. If the patient continues to be symptomatic we will consider transferring her inpatient to inpatient Documented By: Ashwin Macias MD 05/01/22814 Signed By: <Electronically signed by Ashwin Macias MD> 05/01/22820 [facility] Work Phone: 1(775) 115-927808-17-2022 Progress note Author Ashwin Macias [facility] April 30, 2022 9:17am Note Date/Time April 30, 2022 9: 17am [facility] [address] [place] [address] Hospitalist Progress Note Signed Patient: Melina Díaz MR#: [id number] : 1975 Acct:[id number] Age/Sex: 46 / F Adm Date: 2 Loc: Room: [address] [place] [address] Type: ADM INOo Attending Dr: Ashwin Macias MD Copies to: ~ Date of Service: 04/30/2022 Subjective Subjective Narrative: Patient reported that her diarrhea had resolved. She continues to have upper abdominal discomfort associated with nausea. She is unable to keep anything down. Patient is requesting certain medication by name to be given intravenously rather than orally. No fever or chills. No hematemesis or melena. Exam Physical Exam Vital Signs: Temp Pulse Resp BP Pulse Ox O2 Del Method 97.6 F 63 18 121/79 97 Room Air 04/30/22 04:00 04/30/22 04:00 04/30/22 04:00 04/30/22 04:00 04/30/22 04:00 04/30/22 04:00 Narrative: [pt is awake and alert. oriented to place, time and person. In mild distress secondary to epigastric pain HEENT: Hornell conjunctiva and NL buccal mucosa Neck: Supple, no tenderness Endocrine: No Thyromegaly. Vascular: No JVD or carotid bruit. Lymphatic: No cervical lymphadenopathy. Chest: CTA no DTP. Heart RRR, no extra sound or murmur. Abd: Soft, mild tenderness in the epigastric area. Mild tenderness in the periumbilical area as well. No guarding, no rebound LE: No cyanosis or clubbing, no varices or edema. Neuro: A A O. Nl speech, comprehension and attention. Nl and symetrical motor and tone examination through out. []] Objective Lab Results CBC & Chem 7: 04/30/22 06:35 04/30/22 06:35 Microbiology Results Microbiology 04/29/22 10:40 Nasopharyngeal SARS-CoV-2, Influenza & RSV (PCR) - Final Meds Allergies and Active Meds Allergies adhesive tape Allergy (Verified 08/09/21 08:07) Unknown Reaction aspartame Allergy (Verified 04/29/22 01:04) Headache gabapentin Allergy (Verified 04/29/22 01:04) Swelling of Lip/Tongue/Throat ketorolac [From Toradol] Allergy (Verified 04/29/22 01:04) Edema tramadol Allergy (Verified 04/29/22 01:04) Hives Active Meds: Active Medications Generic Name Dose Route Start Last Admin Trade Name Freq PRN Reason Stop Dose Admin Acetaminophen 650 mg 04/29/22 09:27 Acetaminophen 325 Mg Tablet PO 04/29/23 09:26 Q6HR PRN Pain Scale 1 - 3 or fever Cyanocobalamin 1,000 mcg 05/06/22 09:00 Cyanocobalamin 1,000 Mcg/Ml Vial IM 05/06/23 08:59 Tu@0900 WOLF Cyclobenzaprine HCl 10 mg 04/29/22 22:00 04/29/22 21:07 Cyclobenzaprine 10 Mg Tablet PO 04/29/23 21:59 10 mg Q8HR WOLF Administration Diphenhydramine HCl 12.5 mg 04/30/22 09:12 Diphenhydramine 50 Mg/Ml Vial IV-PUSH Q6H PRN itshing Enoxaparin Sodium 40 mg 04/29/22 10:00 04/29/22 11:59 Enoxaparin 40 Mg/0.4 Ml Syringe SUBCUT 04/29/23 09:59 40 mg DAILY@10 WOLF Administration Famotidine 20 mg 04/29/22 21:00 04/29/22 21:06 Famotidine/Pf 20 Mg/2 Ml Vial IV-PUSH 04/29/23 20:59 20 mg Q12HR WOLF Administration Home Med 1 each 04/29/22 08:06 04/29/22 08:04 Home Meds Kept In Pharmacy [facility] 04/29/23 08:05 1 each PRN PRN Administration zz.Pharmacy Note Hydromorphone HCl 0.5 mg 04/29/22 16:16 04/30/22 06:39 Hydromorphone 0.5 Mg/0.5 Ml Syringe IV-PUSH 0.5 mg Q4H PRN Administration Pain Scale 8 - 10 Lactated Ringer's 1,000 mls @ 100 mls/hr 04/29/22 09:30 04/30/22 02:07 Lactated Ringers IV 04/29/23 09:29 100 mls/hr .Q10H WOLF Administration Ceftriaxone Sodium 1 gm in 50 mls @ 100 mls/hr 04/29/22 09:45 04/29/22 10:58 Rocephin IV Infused Q24H WOLF Infusion Magnesium Sulfate/Dextrose 1 gm in 100 mls @ 100 mls/hr 04/30/22 09:10 Magnesium Sulfate 1 Gm-*D5w* IV 04/30/22 10:09 ONCE ONE Potassium Chloride 20 meq/ 260 mls @ 130 mls/hr 04/30/22 09:10 Sodium Chloride IV 04/30/22 11:09 ONCE ONE Levothyroxine Sodium 50 mcg 04/30/22 06:30 Levothyroxine 50 Mcg Tablet PO 04/30/23 06:29 DAILY@0630 WOLF Oxycodone HCl 5 mg 04/29/22 09:27 Oxycodone Ir 5 Mg Tablet PO Q6HR PRN Pain Scale 4 - 7 Promethazine HCl 12.5 mg 04/29/22 16:16 04/30/22 06:42 Promethazine 25 Mg/Ml Vial IV-PUSH 04/29/23 16:15 12.5 mg Q6H PRN Administration Nausea And Vomiting Sodium Chloride 0 ml 04/29/22 01:03 04/30/22 06:39 Sodium Chloride 0.9 % 10 Ml Syringe IV-PUSH 04/29/23 01:02 10 ml PRN PRN Administration Flush Sodium Chloride 10 ml 04/29/22 09:31 04/30/22 06:43 Sodium Chloride 0.9 % 10 Ml Vial.Pf INJECTION 04/29/23 09:30 10 ml PRN PRN Administration To dilute Pepcid Sodium Chloride 10 ml 04/29/22 16:16 04/29/22 21:06 Sodium Chloride 0.9 % 10 Ml Vial.Pf INJECTION 04/29/23 16:15 10 ml PRN PRN Administration Promethazine Dilution Sucralfate 1 gm 04/29/22 18:00 04/29/22 21:06 Sucralfate Susp 1 Gm/10 Ml Udc PO 04/29/23 17:59 1 gm QID WOLF Administration A&P - Hospitalist Assessment/Plan (1) Intractable abdominal pain: (2) Intractable nausea and vomiting: (3) Hypokalemia: (4) Hypomagnesemia: (5) DVT prophylaxis: Plan Recurrent nausea and vomiting. Diarrhea. Patient had pyloric dilatation at last week. 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 Borderline hypokalemia and hypomagnesemia. Potassium and magnesium supplementation intravenously. Monitor electrolytes, kidney function, WBC and hemoglobin CAT scan showed mild pancreatic edema. Amylase and lipase is normal. Clear liquid diet. GI services to decide whether patient would need another endoscopy. Defer further needed diagnostic and therapeutic intervention related to her GI issues and the timing of these interventions to the GI service. Drug-seeking behaviors. Patient is requesting certain medications by name to begiven intravenously including Phenergan not Zofran, Dilaudid not morphine, Benadryl IV not p.o. I made the patient aware of potential side effects including OFFICE ANALYST depression, respiratory depression, cardiac depression, cardiac dysrhythmia and such. Patient is willing to take oral risk associated for the sake of symptoms control. Patient would likely need to have additional work-up, investigation and therapeutic intervention that will be determined based on the clinical progression and a follow-up test result. If the patient continues to improve she will be discharged home to follow-up with GI and the surgical team. If the patient continues to be symptomatic we will consider transferring her inpatient to inpatient Documented By: Ashwin Macias MD 04/30/22912 Signed By: <Electronically signed by Ashwin Macias MD> 04/30/22916 [facility] Work Phone: [phone]) 744-168508-16-2022 History and physical note Author Ashwin Macias [facility] April 29, 2022 4:23pm Note Date/Time April 29, 2022 4: 23pm [facility] [address] [place] [address] Hospitalist H&P Signed Patient: Melina Díaz MR#: [id number] : 1975 Acct:[id number] Age/Sex: 46 / F Adm Date: 2 Loc: 3T Room: [address] [place] [address] Type: ADM INOo Attending Dr: Ashwin Macias MD Copies to: MD Ashwin Alberts MD~ HPI DATE OF EXAMINATION: 04/29/22 CHIEF COMPLAINT: Abdominal pain and diarrhea. HISTORY OF PRESENT ILLNESS: Mrs. Díaz is a 46-year-old female with a known diagnosis of gastric sleeve followed by gastric bypass 4 months ago. Reportedly the patient has pyloric stenosis requiring dilatation. Last dilatation was done at a week ago. Patient did fairly well postprocedure up until yesterday when she started havingworsening abdominal pain associated with nausea, vomiting and diarrhea. No fever or chills. No hematemesis or melena. No other symptoms reported Review of Systems Review of Systems All other systems reviewed & are negative unless noted below or in HPI PMFSH Vaccinated for COVID-19?: Yes Medical History (Updated 04/29/22 @ 14:36 by Jarred Begum MD) Thyroid nodule Surgical History (Updated 04/29/22 @ 01:05 by Leslie Shine RN) Gastric bypass status for obesity H/O gastric sleeve History of section History of hysterectomy Hx of cholecystectomy Social History Smoking Status: Never smoker Substance Use Type: None Meds Medications and Allergies Allergies adhesive tape Allergy (Verified 08/09/21 08:07) Unknown Reaction aspartame Allergy (Verified 04/29/22 01:04) Headache gabapentin Allergy (Verified 04/29/22 01:04) Swelling of Lip/Tongue/Throat ketorolac [From Toradol] Allergy (Verified 04/29/22 01:04) Edema tramadol Allergy (Verified 04/29/22 01:04) Hives Home Medications amoxicillin 875 mg-potassium clavulanate 125 mg tablet 1 tab PO Q12H 04/29/22 [History Confirmed 04/29/22] calcium citrate 250 mg PO BID 04/29/22 [History Confirmed 04/29/22] cyanocobalamin (vitamin B-12) 1,000 mcg/mL injection solution (Dodex) 1,000 mcg IM QWEEK 04/29/22 [History Confirmed 04/29/22] dextroamphetamine-amphetamine 20 mg tablet 20 mg PO BID 04/29/22 [History Confirmed 04/29/22] diphenhydramine HCl 25 mg capsule (Benadryl) 25 mg PO TID PRN HIVES 04/29/22 [History Confirmed 04/29/22] eletriptan 40 mg tablet (Relpax) 40 mg PO Q2H PRN Headache 04/29/22 [History Confirmed 04/29/22] levothyroxine 50 mcg tablet (Synthroid) 50 mcg PO DAILY 04/29/22 [History Confirmed 04/29/22] methocarbamol 500 mg tablet 500 mg PO Q8HR 04/29/22 [History Confirmed 04/29/22] omeprazole 40 mg capsule,delayed release 40 mg PO BID 04/29/22 [History Confirmed 04/29/22] ondansetron 8 mg disintegrating tablet 8 mg translingual Q8HR 04/29/22 [History Confirmed 04/29/22] oxycodone 5 mg/5 mL oral solution 5 mg PO Q6HR 04/29/22 [History Confirmed 04/29/22] promethazine 25 mg tablet 25 mg PO Q8HR 04/29/22 [History Confirmed 04/29/22] sucralfate 100 mg/mL oral suspension (Carafate) 10 ml PO QID 04/29/22 [History Confirmed 04/29/22] Exam Physical Exam Vital Signs: Temp Pulse Resp BP Pulse Ox O2 Del Method 97.7 F 69 20 130/79 100 Room Air 04/29/22 15:27 04/29/22 15:27 04/29/22 15:27 04/29/22 15:27 04/29/22 15:27 04/29/22 15:27 Narrative: [pt is awake and alert. oriented to place, time and person. In mild distress secondary to epigastric pain HEENT: [place] conjunctiva and NL buccal mucosa Neck: Supple, no tenderness Endocrine: No Thyromegaly. Vascular: No JVD or carotid bruit. Lymphatic: No cervical lymphadenopathy. Chest: CTA no DTP. Heart RRR, no extra sound or murmur. Abd: Soft, mild tenderness in the epigastric area. Mild tenderness in the periumbilical area as well. No guarding, no rebound LE: No cyanosis or clubbing, no varices or edema. Neuro: A A O. Nl speech, comprehension and attention. Nl and symetrical motor and tone examination through out. []] Results Lab Results Labs: Laboratory Last Values Corrected WBC 7.0 X10E3/uL (3.8-11.6) 04/29/22 01:42 Uncorrected WBC Count 7.0 x10E3/uL (4.5-11.0) 04/29/22 01:42 RBC 4.29 x10E6/uL (3.60-5.00) 04/29/22 01:42 Hgb 12.4 g/dL (11.8-15.4) 04/29/22 01:42 Hct 37.4 % (34.0-46.4) 04/29/22 01:42 MCV 87.1 fl (80-100) 04/29/22 01:42 MCH 28.9 pg (24.7-34.3) 04/29/22 01:42 MCHC 33.2 g/dL (32.0-35.0) 04/29/22 01:42 RDW 16.1 % (11.9-15.3) H 04/29/22 01:42 Plt Count 268 x10E3/uL (150-450) 04/29/22 01:42 MPV 8.3 fl (6.3-10.7) 04/29/22 01:42 Neut % (Auto) 62.7 % (.) 04/29/22 01:42 Lymph % (Auto) 24.4 % (.) 04/29/22 01:42 [place] % (Auto) 9.3 % (.) 04/29/22 01:42 Eos % (Auto) 2.6 % (.) 04/29/22 01:42 Baso % (Auto) 1.0 % (.) 04/29/22 01:42 Neut # (Auto) 4.4 x10E3/uL (1.8-7.7) 04/29/22 01:42 Lymph # (Auto) 1.7 x10E3/uL (1.00-4.8) 04/29/22 01:42 [place] # (Auto) 0.7 x10E3/uL (0.0-0.8) 04/29/22 01:42 Eos # (Auto) 0.2 x10E3/uL (0.0-0.45) 04/29/22 01:42 Baso # (Auto) 0.1 x10E3/uL (0.0-0.2) 04/29/22 01:42 Nucleated RBC % (auto) 0.1 % (0-0.5) 04/29/22 01:42 PHA Creatinine Clear 140.54 04/29/22 01:42 Sodium 141 mmol/L (136-146) 04/29/22 01:42 Potassium 3.3 mmol/L (3.5-5.1) L 04/29/22 01:42 Chloride 104 mmol/L (95-114) 04/29/22 01:42 Carbon Dioxide 28.1 mmol/L (22.0-30.0) 04/29/22 01:42 BUN 4 mg/dL (9-23) L 04/29/22 01:42 Creatinine 0.61 mg/dL (0.44-1.03) 04/29/22 01:42 Est GFR ( Amer) > 60 mL/Min 04/29/22 01:42 Est GFR (Non-Af Amer) > 60 mL/Min 04/29/22 01:42 Glucose 103 mg/dL (70-100) H 04/29/22 01:42 Calcium 8.9 mg/dL (8.2-10.2) 04/29/22 01:42 Total Bilirubin 0.5 mg/dL (0.3-1.2) 04/29/22 01:42 AST 14 U/L (10-42) 04/29/22 01:42 ALT 12 U/L (10-60) 04/29/22 01:42 Alkaline Phosphatase 67 U/L (32-92) 04/29/22 01:42 Total Protein 5.9 gm/dL (6.1-7.9) L 04/29/22 01:42 Albumin 3.5 gm/dL (3.2-5.5) 04/29/22 01:42 Globulin 2.4 gm/dL 04/29/22 01:42 Albumin/Globulin Ratio 1.5 04/29/22 01:42 Lipase 23.0 U/L (22-51) 04/29/22 01:42 Urine Color Yellow (Yellow) 04/29/22 07:30 Urine Appearance Clear (Clear) 04/29/22 07:30 Urine pH 6.0 (5.0-9.0) 04/29/22 07:30 Ur Specific [place] > 1.050 (1.001-1.030) H 04/29/22 07:30 Urine Protein Negative mg/dL (Negative) 04/29/22 07:30 Urine Glucose (UA) Normal mg/dL (Normal) 04/29/22 07:30 Urine Ketones Negative (Negative) 04/29/22 07:30 Urine Occult Blood Negative (Negative) 04/29/22 07:30 Urine Nitrite Negative (Negative) 04/29/22 07:30 Urine Bilirubin Negative (Negative) 04/29/22 07:30 Urine Urobilinogen Normal mg/dL (Normal) 04/29/22 07:30 Ur Leukocyte Esterase 2+ (Negative) H 04/29/22 07:30 Urine RBC None seen /HPF (0-4) 04/29/22 07:30 Urine WBC 5-9 /HPF (0-4) H 04/29/22 07:30 Ur Squamous Epith Cells 5-9 /HPF (0-2) H 04/29/22 07:30 Urine Bacteria Rare (None Seen) H 04/29/22 07:30 Hyaline Casts 0-8 /LPF (0-8) 04/29/22 07:30 Urine HCG, Qual Negative 04/29/22 07:30 Urine Opiates Screen Positive (Negative) H 04/29/22 07:30 Ur Barbiturates Screen Negative (Negative) 04/29/22 07:30 Ur Phencyclidine Scrn Negative (Negative) 04/29/22 07:30 Ur Amphetamines Screen Negative (Negative) 04/29/22 07:30 U Benzodiazepines Scrn Positive (Negative) H 04/29/22 07:30 Urine Cocaine Screen Negative (Negative) 04/29/22 07:30 U Marijuana (THC) Screen Negative (Negative) 04/29/22 07:30 SARS Antigen (LFIA) Negative (Negative) 04/29/22 01:37 SARS-CoV-2 Rap RNA(RT-PCR) Negative (Negative) 04/29/22 10:40 Microbiology Results Micro: Microbiology - Results from entire visit 04/29/22 10:40 Nasopharyngeal SARS-CoV-2, Influenza & RSV (PCR) - Final 04/29/22 01:37 Nasal SARS Antigen (LFIA) - Final A&P - Hospitalist Assessment/Plan (1) Intractable abdominal pain: (2) Intractable nausea and vomiting: Plan Recurrent nausea and vomiting. Diarrhea. Patient had pyloric dilatation at last week. 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 I had accepted to observe patient over the next 24 to 48 hours. I requested GI consultation. Continue as needed medication for nausea, vomiting and pain. Monitor electrolytes, kidney function, WBC and hemoglobin CAT scan showed mild pancreatic edema. Lipase is normal. Clear liquid diet. Patient would likely need to have additional work-up, investigation and therapeutic intervention that will be determined based on the clinical progression and a follow-up test result. If the patient continues to improve she will be discharged home to follow-up with GI and the surgical team. If the patient continues to be symptomatic we will consider transferring her inpatient to inpatient Documented By: Ashwin Macias MD 04/29/22 161 Signed By: <Electronically signed by Ashwin Macias MD> 04/29/22 1626 [facility] Work Phone: 1(335) [phone] Consult note Author Jarred Begum [facility] April 29, 2022 2:38pm Note Date/Time April 29, 2022 2: 27pm [facility] [address] [place] [address] Gastroenterology Consult Note Signed Patient: Melina Díaz MR#: [id number] : 1975 Acct:[id number] Age/Sex: 46 / F Adm Date: 2 Loc: Room: [address] [place] [address] Type: ADM INOo Attending Dr: Ashwin Macias MD Copies to: MD Yg Velázquez MD Rafik Massouh, MD~ HPI Data of Consult Date of Consultation: 04/29/22 Requesting Physician: Ashwin Macias MD Consult Narrative History of present illness: Ms. Díaz is a 46 year old female admitted with intractable n/v and abdominal pain. Whom I am consulted for nausea, vomiting and abdominal pain. The patienthas a complicated GI history. She had a gastric sleeve about 10 years ago. In December of this past year due to chronic ischemic areas and plateau in her weight loss she had this converted to a Gelacio-en-Y at [facility], with hiatal hernia repair. Her initial postoperative course was uncomplicated and postoperative imaging without evidence of leaks. She quickly developed chronic abdominal pain with nausea and has had multiple admissions with her bariatric surgery team for this. Her post bariatric diet has only ever advanced to soft's, mashed potatoes consistency. She is not been able to advance diet past this due to pain, nausea and vomiting. Most recently underwent a pyloric dilation empirically with steroid injection 4 days ago, by Dr. Terry at . ThatEGD report shows no anastomotic ulcer and normal appearing mucosa of the Gelacio/efferent limb. Her surgeon recommended she needs to establish care with GI.She is prescribed multiple anti-emtics by her bariatric team. cc:: CC: Ashwin Macias MD Review of Systems Constitutional Constitutional: Denies poor appetite and Denies weight loss Eyes Eyes: Denies change in vision and Denies eye discharge ENT Ears, Nose, Mouth, and Throat: Denies nasal discharge, Denies sore throat and Denies vertigo Cardiovascular Cardiovascular: Denies chest pain and Denies dyspnea on exertion Respiratory Respiratory: Denies chest congestion, Denies cough and Denies dyspnea on exertion Gastrointestinal Gastrointestinal: Reports as per HPI Musculoskeletal Musculoskeletal: Denies arthralgias, Denies muscle weakness and Denies numbness Integumentary/Breasts Skin/Breast: Denies change in pigmentation and Denies rash Neurologic Neurologic: Denies numbness and Denies vertigo Psychiatric Psychiatric: Denies anxiety and Denies depression Hematologic/Lymphatic Hematologic/Lymphatic: Denies easy bruising and Denies lymphadenopathy PMFSH Vaccinated for COVID-19?: Yes Medical History (Updated 04/29/22 @ 14:36 by Jarred Begum MD) Thyroid nodule Surgical History (Updated 04/29/22 @ 01:05 by Leslie Shine RN) Gastric bypass status for obesity H/O gastric sleeve History of section History of hysterectomy Hx of cholecystectomy Social History Smoking Status: Never smoker Substance Use Type: None Meds Medications and Allergies Allergies adhesive tape Allergy (Verified 08/09/21 08:07) Unknown Reaction aspartame Allergy (Verified 04/29/22 01:04) Headache gabapentin Allergy (Verified 04/29/22 01:04) Swelling of Lip/Tongue/Throat ketorolac [From Toradol] Allergy (Verified 04/29/22 01:04) Edema tramadol Allergy (Verified 04/29/22 01:04) Hives Home Medications amoxicillin 875 mg-potassium clavulanate 125 mg tablet 1 tab PO Q12H 04/29/22 [History Confirmed 04/29/22] calcium citrate 250 mg PO BID 04/29/22 [History Confirmed 04/29/22] cyanocobalamin (vitamin B-12) 1,000 mcg/mL injection solution (Dodex) 1,000 mcg IM QWEEK 04/29/22 [History Confirmed 04/29/22] dextroamphetamine-amphetamine 20 mg tablet 20 mg PO BID 04/29/22 [History Confirmed 04/29/22] diphenhydramine HCl 25 mg capsule (Benadryl) 25 mg PO TID PRN HIVES 04/29/22 [History Confirmed 04/29/22] eletriptan 40 mg tablet (Relpax) 40 mg PO Q2H PRN Headache 04/29/22 [History Confirmed 04/29/22] levothyroxine 50 mcg tablet (Synthroid) 50 mcg PO DAILY 04/29/22 [History Confirmed 04/29/22] methocarbamol 500 mg tablet 500 mg PO Q8HR 04/29/22 [History Confirmed 04/29/22] omeprazole 40 mg capsule,delayed release 40 mg PO BID 04/29/22 [History Confirmed 04/29/22] ondansetron 8 mg disintegrating tablet 8 mg translingual Q8HR 04/29/22 [History Confirmed 04/29/22] oxycodone 5 mg/5 mL oral solution 5 mg PO Q6HR 04/29/22 [History Confirmed 04/29/22] promethazine 25 mg tablet 25 mg PO Q8HR 04/29/22 [History Confirmed 04/29/22] sucralfate 100 mg/mL oral suspension (Carafate) 10 ml PO QID 04/29/22 [History Confirmed 04/29/22] Exam Physical Exam Vital Signs: Temp Pulse Resp BP Pulse Ox O2 Del Method 97.6 F 75 20 142/71 H 98 Room Air 04/29/22 12:00 04/29/22 13:11 04/29/22 13:11 04/29/22 13:11 04/29/22 13:11 04/29/22 13:11 Const General: no acute distress and well developed HEENT Head: normocephalic and atraumatic Mouth: moist mucous membranes Eyes Sclera: sclerae normal (no scleral icterus) EOM: EOM intact bilaterally Neck Other: trachea midline Resp Effort & Inspection: normal respiratory effort and able to speak in complete sentences GI Inspection: normal to inspection and non-distended Palpation: soft and nontender Skin General: turgor normal and no jaundice Neuro General: patient alert and patient oriented x3 Psych Appearance: grossly normal Mental Status: mental status grossly normal Results Labs Labs: Laboratory Results - last 24 hr 04/29/22 04/29/22 04/29/22 01:37 01:42 01:42 Corrected WBC 7.0 Uncorrected WBC Count 7.0 RBC 4.29 Hgb 12.4 Hct 37.4 MCV 87.1 MCH 28.9 MCHC 33.2 RDW 16.1 H Plt Count 268 MPV 8.3 Neut % (Auto) 62.7 Lymph % (Auto) 24.4 [place] % (Auto) 9.3 Eos % (Auto) 2.6 Baso % (Auto) 1.0 Neut # (Auto) 4.4 Lymph # (Auto) 1.7 [place] # (Auto) 0.7 Eos # (Auto) 0.2 Baso # (Auto) 0.1 Nucleated RBC % (auto) 0.1 PHA Creatinine Clear 140.54 Sodium 141 Potassium 3.3 L Chloride 104 Carbon Dioxide 28.1 BUN 4 L Creatinine 0.61 Est GFR ( Amer) > 60 Est GFR (Non-Af Amer) > 60 Glucose 103 H Calcium 8.9 Total Bilirubin 0.5 AST 14 ALT 12 Alkaline Phosphatase 67 Total Protein 5.9 L Albumin 3.5 Globulin 2.4 Albumin/Globulin Ratio 1.5 Lipase 23.0 Urine Color Urine Appearance Urine pH Ur Specific [place] Urine Protein Urine Glucose (UA) Urine Ketones Urine Occult Blood Urine Nitrite Urine Bilirubin Urine Urobilinogen Ur Leukocyte Esterase Urine RBC Urine WBC Ur Squamous Epith Cells Urine Bacteria Hyaline Casts Urine HCG, Qual Urine Opiates Screen Ur Barbiturates Screen Ur Phencyclidine Scrn Ur Amphetamines Screen U Benzodiazepines Scrn Urine Cocaine Screen U Marijuana (THC) Screen SARS Antigen (LFIA) Negative SARS-CoV-2 Rap RNA(RT-PCR) 04/29/22 04/29/22 04/29/22 07:30 07:30 10:40 Corrected WBC Uncorrected WBC Count RBC Hgb Hct MCV MCH MCHC RDW Plt Count MPV Neut % (Auto) Lymph % (Auto) [place] % (Auto) Eos % (Auto) Baso % (Auto) Neut # (Auto) Lymph # (Auto) [place] # (Auto) Eos # (Auto) Baso # (Auto) Nucleated RBC % (auto) PHA Creatinine Clear Sodium Potassium Chloride Carbon Dioxide BUN Creatinine Est GFR ( Amer) Est GFR (Non-Af Amer) Glucose Calcium Total Bilirubin AST ALT Alkaline Phosphatase Total Protein Albumin Globulin Albumin/Globulin Ratio Lipase Urine Color Yellow Urine Appearance Clear Urine pH 6.0 Ur Specific [place] > 1.050 H Urine Protein Negative Urine Glucose (UA) Normal Urine Ketones Negative Urine Occult Blood Negative Urine Nitrite Negative Urine Bilirubin Negative Urine Urobilinogen Normal Ur Leukocyte Esterase 2+ H Urine RBC None seen Urine WBC 5-9 H Ur Squamous Epith Cells 5-9 H Urine Bacteria Rare H Hyaline Casts 0-8 Urine HCG, Qual Negative Urine Opiates Screen Positive H Ur Barbiturates Screen Negative Ur Phencyclidine Scrn Negative Ur Amphetamines Screen Negative U Benzodiazepines Scrn Positive H Urine Cocaine Screen Negative U Marijuana (THC) Screen Negative SARS Antigen (LFIA) SARS-CoV-2 Rap RNA(RT-PCR) Negative A&P - Gastroenterology Assessment/Plan (1) Intractable abdominal pain: Code(s): R10.9 - Unspecified abdominal pain Status: Acute (2) Intractable nausea and vomiting: Code(s): R11.2 - Nausea with vomiting, unspecified Status: Acute (3) Complications of gastric bypass surgery: Code(s): K91.89 - Other postprocedural complications and disorders of digestive system; Y83.2 - Surgical operation with anastomosis, bypass or graft as the cause of abnormal reaction of the patient, or of later complication, without mention of misadventure at the time of the procedure Status: Acute Plan She is having common obstructive symptoms since having her gastric sleeve converted to Gelacio-en-Y gastric bypass. Unfortunately this is common with these type of conversion bariatric surgeries. She needs symptomatic management and ultimately needs to follow-up with her bariatric team at [facility], she does not need gastroenterology follow-up here for this as this is a known and expected complication of her surgeries. -symptomatic management per primary team Thank you for this consult. Little further to add from a GI standpoint. I willsign off at this time. Documented By: Jarred Begum MD 04/29/22 1418 Signed By: <Electronically signed by Jarred Begum MD> 04/29/22 1438 [facility] Work Phone: 1(755) 791-292008-12-2022 NoteSend Summary: Note Recipients: Brittany Bose MD Discharge: Summary: Admission Date: .23-Apr-2022 15:09:00 Discharge Date: 25-Apr-2022 Attending Physician at Discharge: Rangel Admission Reason: stricture of gastrojejunostomy Final Discharge Diagnoses: Abdominal pain Procedures: EGD er Díaz Procedure Date: 04/24/2022 1:01 PM Date of : 1975 Admit Type: Emergency Department Site: [facility] Endoscopy Room 1 Ethnicity: Not or Race: White Attendin Apr 24, 2022 Condition at Discharge: stable Disposition at Discharge: home Vital Signs: T PRBPMAPSpO2 [id number]/218664% Date/Time04/25 7:438 7:438 7: 7:438 7:438 7:43 Range(35.7C - 36.7C ) (49 - 65 ) (16 - 18 ) (106 - 127 )/ (56 - 62 ) (75 - 88 ) (97% - 99% ) Date: Weight/Scale Type:Height: 24-Apr-2022 13:2295 kg 172.6 cm Physical Exam: Physical Exam: General: Well developed, awake/alert/oriented x3, no distress, alert and cooperative Eyes: EOMI, clear sclera Head/Neck: Neck supple, no apparent injury, No JVD, trachea midline Respiratory/Thorax: good chest expansion, thorax symmetric Cardiovascular: Regular heart rate Abdominal: less tender than at admission, soft, no rebound tenderness or guarding, no masses palpable Musculoskeletal: ROM intact, no joint swelling Extremities: normal extremities, no cyanosis edema, contusions or wounds, no clubbing Neurological: alert and oriented x3, intact senses Psychological: Appropriate mood and behavior Skin: Warm and dry, no lesions, no rashes Hospital Course: Patient presented to the ED with recurrent symptoms after recent endoscopic dilation of GJ stricture. She was admitted and provided IV protonix, dilaudid, zofran and PO carafate. Her symptoms improved with medications. She then underwent repeat dilation, with improvement in symptoms. She was started on BID PPI, continued on carafate. She was tolerating liquids prior to discharge. Immunizations: Immunizations: 02-Jun-2021 .Influenza- Influenza Virus: Immunizations, 02-Jun-2021 Discharge Information: and Continuing Care: Lab Results - Pending: None Radiology Results - Pending: None Discharge Instructions: Additional Orders: Additional Instructions: Activity instructions: - No lifting, pulling, or pushing objects greater than 15 pounds for 4 weeks. - Activity otherwise as tolerated. - You may shower. Soap and water may run over your incisions. Pat dry. No submerging in baths or swimming (activities that keep your incisions underwater) for at least two weeks. - You may not drive while taking narcotics. Diet: - You will go home on a full liquid diet (similar to the diet you were on your final day in the hospital) - You will stay on this full liquid diet for two weeks. Acceptable full liquids include protein shakes, sugar free jello, sugar free pudding, and creamy soups (no chunks). You will continue to drink clear liquids including water and crystal light. You should aim for 64 ounces of fluid per day, with about half of this being full liquids and half of this being clear liquids. Do not exceed 8 oz per hour. - After two weeks, you should have a discussion with the electrical worker about progressing to a combination of full liquid and pureed foods. - Take fiber daily - For further information, follow the diet instructions listed in your bariatric surgery instruction packet. Medications: - Medications should be crushed and mixed with full liquids. Capsules may be opened and mixed with full liquids. - Extended release medications should not be taken. Please contact your primary care physician to convert extended release medications to immediate release form. - Take 650mg Tylenol (liquid preferred) every 6 hours for pain. Take between doses of your opioid pain medication. Try to limit the use of your opioid pain medication and only take as needed. - Slowly add your vitamins to your daily medication regimen as tolerated. You do not have to take them within the first few days after surgery if they are causing you nausea or other problems. - If you have medications that you still cannot tolerate by your first visit with your surgeon or dietitian, please discuss this. Call Provider If: - Breathing faster or harder than normal. - Fever of 100.4 F (38 C) or higher or feeling of chills. - Feeling very sleepy and difficult to awaken. - Inability to drink or significant decrease in ability to drink since discharge. - Vomiting (throwing up) and not able to eat or drink for 12 hours. - Urinating much less than your normal. - More than 4 loose, watery bowel movements in 24 hours (diarrhea). - Any new concerning symptoms. Discharge Medications: Home Medication levothyroxine 50 mcg (0.05 mg) oral tablet - 1 tab(s) orally once a day (in the morning) cyanocobalamin 1 (more content not included)...[facility]08-10-2022 NoteHistory of Present Illness: /Lactating Are You no (1) Are You Currently Breastfeedingno (1) HPI: MELINA DÍAZ is a 46 year old Female history of Gelacio-en-Y gastric bypass in December [address] Bose, presents emergency room with abdominal pain nausea and vomiting. She was admitted to [facility] last week for similar symptoms and underwent upper GI that demonstrated a stricture. She then underwent endoscopic dilation by Dr. Terry. After her dilation she felt significantly better her pain and nausea had improved. Since she has been home she felt okay for 1 to 2 days. But at recurrence of symptoms and over the last 2 days she has not been able to tolerate the significant amount of p.o. intake. She had several episodes of clear foamy emesis. She also has epigastric pain that was similar to what she had prior to her previous admission. She denies any fevers or chills. Past medical history: Obesity, previous history of GERD Past surgical history: Laparoscopic cholecystectomy, gastric bypass Comorbidities: Comorbidites Comorbid Conditionsobesity, history of GERD Family History: Family History: reviewed and not pertinent to presenting problem Social History: Social History Smoking Statusnever smoker Alcohol Usedenies Drug Usedenies Drug 2 Usedenies Allergies: Tramadol Hydrochloride: Facial Swelling Toradol: Unknown gabapentin: Unknown Tape - Adhesive, Bandaids, Paper: Other Aspartame: Other Medications Prior to Admission: reviewed, reconciled. Review of Systems: Constitutional: POSITIVE: Malaise; NEGATIVE: Fever Eyes: NEGATIVE: Blurry Vision, Drainage ENMT: NEGATIVE: Nasal Discharge, Nasal Congestion Respiratory: NEGATIVE: Dry Cough, Productive Cough Cardiac: NEGATIVE: Chest Pain, Dyspnea on Exertion Gastrointestinal: POSITIVE: Nausea, Vomiting, Abdominal Pain Genitourinary: NEGATIVE: Discharge, Dysuria Musculoskeletal: NEGATIVE: Decreased ROM, Pain Neurological: NEGATIVE: Dizziness, Confusion Psychiatric: POSITIVE: Anxiety; NEGATIVE: Mood Changes Endocrine: NEGATIVE: Heat Intolerance, Cold Intolerance Hematologic/Lymph: NEGATIVE: Anemia, Bruising Allergic/Immunologic: POSITIVE: Itchy/ Teary Eyes; NEGATIVE: Anaphylaxis All Other Systems: All other systems reviewed and are negative Objective: Objective Information: T PRBPMAPSpO2 [id number]% Date/Time04/23 15: 15: 15: 15: 15:27 Range(35.9C - 35.9C ) (60 - 60 ) (18 - 18 ) (137 - 137 )/ (80 - 80 ) (100% - 100% ) Physical Exam Narrative Physical Exam: Physical Exam: General: Well developed, awake/alert/oriented x3, no distress, alert and cooperative Eyes: EOMI, clear sclera Head/Neck: Neck supple, no apparent injury, No JVD, trachea midline Respiratory/Thorax: good chest expansion, thorax symmetric Cardiovascular: Regular heart rate Abdominal: soft, mild epigastric tenderness Musculoskeletal: ROM intact, no joint swelling Extremities: normal extremities, no cyanosis edema, contusions or wounds, no clubbing Neurological: alert and oriented x3, intact senses Psychological: Appropriate mood and behavior Skin: Warm and dry, no lesions, no rashes Recent Lab Results Results: CBC: 04/23/2022 16:55 \ Hgb / \ 11.6 L / WBC Plt 6.5 271 / Hct \ / 36.5 \ RBC: 4.04 MCV: 90 Neutrophil %: 52.9 CMP: 04/23/2022 16:55 NA+ Cl- BUN / 140 107 8 / Glucose 93 K+ HCO3- Creat \ 3.5 28 0.62 \ \ T Bili / \ 0.5 / AST x ---- x ALT 16 x ---- x 11 / Alk P \ / 66 \ Calcium : 8.6 Anion Gap : 9 L Albumin : 3.6 T Protein : 5.9 L RFP: 04/17/2022 05:39 NA+ Cl- BUN / 141 108 H 5 L / Glucose 137 H K+ HCO3- Creat \ 4.5 24 0.54 \ Calcium : 8.5 LAnion Gap : 14 Albumin : 3.2 L Phos : 3.4 Coagulation: 04/23/2022 16:55 PT / 12.7 / -------< INR < 1.1 PTT\ \ I have reviewed these laboratory results: Complete Blood Count + Differential 23-Apr-2022 16:55:00 ResultValue White Blood Cell Count 6.5 Nucleated Erythrocyte Count 0.0 Red Blood Cell Count 4.04 HGB 11.6 L HCT 36.5 MCV 90 MCHC 31.8 L PLT 271 RDW-CV 15.1 H Neutrophil % 52.9 Immature Granulocytes % 0.3 Lymphocyte % 34.0 Monocyte % 9.7 Eosinophil % 2.2 Basophil % 0.9 Neutrophil Count 3.44 Lymphocyte Count 2.21 Monocyte Count 0.63 Eosinophil Count 0.14 Basophil Count 0.06 Comprehensive Metabolic Panel 23-Apr-2022 16:55:00 ResultValue Glucose, Serum 93 NA 140 K 3.5 CL 107 Bicarbonate, Serum 28 Anion Gap, Serum 9 L BUN 8 CREAT 0.62 GFR Female >90 Calcium, Serum 8.6 ALB 3.6 ALKP 66 T Pro 5.9 L T Bili 0.5 Alanine Aminotransferase, Serum 11 Aspartate Transami (more content not included)...[facility] 04-17-2022 NoteSend Summary: Discharge Summary Providers: Provider RoleProvider Name ReferringLucia Dick John AttendingLucia Dick Note Recipients: Discharge: Summary: Admission Date: .11-Apr-2022 19:47:00 Discharge Date: 17-Apr-2022 Attending Physician at Discharge: Brittany Bose Admission Reason: S/p gastric bypass now with PO intolerance and ulcer per EGD at outside hospital(1) Final Discharge Diagnoses: S/P gastric bypass w/ anastomotic stricture Procedures: EGD w/ dilations Condition at Discharge: Satisfactory Disposition at Discharge: .Home Vital Signs: T PRBPMAPSpO2 [id number]% Date/Time04/17 7:/4 7:/4 7:448/4 7:448/4 7:44 Range(36.5C - 37.8C ) (54 - 81 ) (18 - 19 ) (99 - 124 )/ (62 - 74 ) (92% - 98% ) Highest temp of 37.8 C was recorded at 04/16 20:00 Date: Weight/Scale Type:Height: 16-Apr-2022 09:1696.6 kg 172.5 cm Physical Exam: Physical Exam: Constitutional: no acute distress, alert and oriented HEENT: EOMI, NCAT CV: regular rate Pulm: nonlabored breathing on room air Abd: soft, nondistended, mildly tender to palpation in upper epigastrium Extremities: warm and well perfused Psych: normal affect Hospital Course: Patient is a 46 years old female wit sleeve gastectomy revision to RYGB in december who presented with PO intolerance. Patient had Upper Gi and EGD which showed ulcer and stricture at GJ anastomosis. Patient was transferred here for further management. Patient had minimal PO intake. VSS. No WBC. Underwent EGD 04/16 w/ dilation of stricture. Post-procedure able to tolerate FLD. Subsequently discharged on FLD w/ outpatient f/u. Immunizations: Immunizations: 02-Jun-2021 .Influenza- Influenza Virus: Immunizations, 02-Jun-2021 Discharge Information: and Continuing Care: Lab Results - Pending: Surgical Pathology Drawn at 16-Apr-2022 10:20:00 Radiology Results - Pending: None Discharge Instructions: Activity: activity as tolerated. May shower.. May not drive while taking narcotics. Nutrition/Diet: full liquids, continue until 8/7 and advance as tolerated Follow Up Appointments: Follow-Up Appointment 01: Physician/Dept/Service: Dr. Bose, General Surgery Scheduled Date/Time: 25-Apr-2022 10:15 Location: *Please do not go into the office the doctor will call you Discharge Medications: Home Medication B-12 1000 mcg oral tablet - 1000 microgram(s) injectable once a week-THURSDAY Synthroid 50 mcg (0.05 mg) oral tablet - 1 tab(s) orally once a day Pepcid 20 mg oral tablet - 1 tab(s) orally 2 times a day Benadryl 25 mg oral tablet - 1 tab(s) orally once a day (at bedtime) gabapentin 250 mg/5 mL oral solution - 5 milliliter(s) orally 3 times a day sucralfate 1 g/10 mL oral suspension - 10 milliliter(s) orally 4 times a day omeprazole 2 mg/mL oral suspension - 10 milliliter(s) orally 2 times a day methocarbamol 500 mg oral tablet - 1 tab(s) orally every 8 hours PRN Medication oxyCODONE 5 mg/5 mL oral solution - 5 milliliter(s) orally every 6 hours, As needed, pain promethazine 25 mg oral tablet - 1 tab(s) orally every 6 hours, As Needed ALPRAZolam 0.5 mg oral tablet - 1 tab(s) orally once a day, As Needed DNR Status: Code StatusCode Status order at time of discharge: Full Code Attestation: Note Completion: I am a: Resident/Fellow Attending AttestationI reviewed the resident/fellows documentation and discussed the patient with the resident/fellow. I agree with the resident/fellows medical decision making as documented in the note. Electronic Signatures: Brittany Bose) (Signed 21-Apr-2022 12:45) Authored: Summary Content, Ongoing Care, Note Completion Co-Signer: Send Summary, Summary Content, Immunizations, Ongoing Care, DNR Status, Note Completion Rene Garcia (Resident)) (Signed 17-Apr-2022 08:44) Authored: Send Summary, Summary Content, Immunizations, Ongoing Care, DNR Status, Note Completion Last Updated: 21-Apr-2022 12:45 by Brittany Bose) References: 1. Data Referenced From History and Physical 11-Apr-2022 22:00[facility]08-03-2022 NoteClinical Event: Clinical Event Note: Topicpost-procedure check Details Patient seen around 3:30 PM. Doing well post-EGD with dilation. Having some pain with swallowing and in her upper epigastric region. Was tolerating liquids. Patient denies nausea, vomiting, CP, SOB. Physical Exam: Constitutional: no acute distress, alert and oriented HEENT: EOMI, NCAT CV: regular rate Pulm: nonlabored breathing on room air Abd: soft, nondistended, tender to palpation in upper epigastrium Extremities: warm and well perfused Psych: normal affect Plan: - CLD, advance to fulls as tolerating - Dispo tomorrow pending tolerating diet Marisol Jimenez PGY 1 [place] [id number] Objective Information T PRBPMAPSpO2 [id number]% Date/Time04/16 15: 15: 15: 15: 15:17 Range(36.5C - 37.3C ) (52 - 80 ) (18 - 18 ) (91 - 124 )/ (59 - 74 ) (94% - 100% ) Highest temp of 37.3 C was recorded at 04/16 11:53 Electronic Signatures: Marisol Jimenez (Resident)) (Signed 16-Apr-2022 17:41) Authored: Clinical Event Note Last Updated: 16-Apr-2022 17:41 by Marisol Jimenez (Resident))[facility]07-30-2022 NoteHistory of Present Illness: /Lactating: Are You no Are You Currently Breastfeedingno (1) Admission Reason: S/p gastric bypass now with PO intolerance and ulcer per EGD at outside hospital HPI: MELINA DÍAZ is a 46 year old Female s/p sleeve gastrectomy that was revised to RYGB w/ hiatal hernia repair with Dr. Bose 12/23/21 now presenting with increased abd pain, n/v/d, and PO intolerance. Pt reports the pain started 3 days and was initially dull but became sharp and severe causing her to pass out. Pt went to [facility] ([place], [place]) where a CT abd/pelvis was performed that was negative for inflammation, dilation, or wall thickening. Barium swallow w/ small bowel follow through concerning for stricture. 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 Pt was instructed to come to [facility] for management. CBC 04/08 demonstrated Hgb 12.2, CBC yesterday demonstrated Hgb 10.8. BMP yesterday Na 141, K 3.9, Cl 106, HCO3 30, BUN 6, Cr 0.6, glucose 92. Upon arrival to [facility], pt still endorsing n/d and occasional chills, but no vomiting, worsening abd pain, chest pain, SOB. Abd pain currently a dull ache in RLQ that does not radiate. Pt has not eaten today. 12 point ROS negative except for that noted in the HPI PMHx: hypothyroid on levothyroxine PSHx: RYGB w/ HHR, sleeve gastrectomy, cholecystectomy, hysterectomy SHx: denies alcohol, smoking, illicit/recreational drugs FHx: not applicable to surgical issue Allergies: adhesive tape, toradol, tramadol, gabapentin Medications: levothyroxine, B12, Adderall Allergies: Tramadol Hydrochloride: Facial Swelling Toradol: Unknown Tape - Adhesive, Bandaids, Paper: Other Aspartame: Other Medications Prior to Admission: Admission Medication Reconciliation has not been completed for this patient. Review of Systems: Constitutional: POSITIVE: Chills Gastrointestinal: POSITIVE: Nausea, Vomiting, Diarrhea, Abdominal Pain All Other Systems: All other systems reviewed and are negative Objective: Objective Information: T PRBPMAPSpO2 [id number]% Date/Time04/11 20: 20: 20: 20: 20:15 Range(36.3C - 36.3C ) (71 - 71 ) (19 - 19 ) (120 - 120 )/ (79 - 79 ) (100% - 100% ) Physical Exam by System: Constitutional: Well developed, awake/alert/oriented x3, no distress, alert and cooperative Eyes: PERRL, EOMI, clear sclera ENMT: mucous membranes moist, no apparent injury, no lesions seen Head/Neck: Neck supple, no apparent injury, trachea midline Respiratory/Thorax: Nonlabored breathing on RA Cardiovascular: Regular rate and rhythm on peripheral pulse Gastrointestinal: Nondistended, soft, RLQ tenderness, no rebound tenderness or guarding, no masses palpable Musculoskeletal: CARRENO Extremities: normal extremities, no cyanosis edema, contusions or wounds, no clubbing radial pulse 2+ b/l Psychological: Appropriate mood and behavior Skin: Warm and dry, no lesions, no rashes Recent Lab Results: Results: I have reviewed these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 benadryl and advised to d/c. Also c/o incisional pain RLQ. She was counseled on appropriate use of pain regimen with tylenol, flexeril and lidocaine patch, binder. REported went to ER on 01/02 to [facility]. The rash has now resolved. She reports she also had CT showing RLQ hematoma. She reports she is uncomfortable at night, not getting much sleep due to discomfort over RLQ. She is taking cyclobenzaprine TID but finding it to have minimal benefit. She is alternating with tylenol 1g every 8 hours. Also lidocaine patches. XL-Mrcwiji-Mrxpt MAC[address] Work Phone: 1([phone]) 568-548404-11-2022 History of Present illness Narrative* Type of Surgery: revision: , surgery Date: 12/23/2021. * Weight:. * Initial weight: 260 lbs. * Last visit weight: 260 lbs. * Danielson weight 149 lbs. * Target body weight 196 lbs. * Comorbidities: anxiety, back pain and esophageal reflux. * 46 yo female s/p revisional bariatric surgery on 12/23/[address] Bose. Conversion sleeve gastrectomy to gastric bypass, HHR.Has comorbidities of GERD mild COLE UV-Lfiltqg-Zhumn [address] Work Phone: [phone] 125-395704-11-2022 History of Present illness Narrative* Type of Surgery: revision: , surgery Date: 12/23/2021. * Weight:. * Initial weight: 260 lbs. * Last visit weight: 260 lbs. * Danielson weight 149 lbs. * Target body weight 196 lbs. * Comorbidities: anxiety, back pain and esophageal reflux. * 46 yo female s/p revisional bariatric surgery on 12/23/[address] Bose. Conversion sleeve gastrectomy to gastric bypass, HHR.Has comorbidities of GERD mild COLE [id number]-Vxtuxwi-Zhpyj MAC[address] Work Phone: [phone] 666-603304-11-2022 History of Present illness Narrative* Type of Surgery: revision: , surgery Date: 12/23/2021. * Weight:. * Initial weight: 260 lbs. * Last visit weight: 260 lbs. * Current weight: 208 lbs. * Danielson weight 149 lbs. * Target body weight 196 lbs. * Food: Breakfast: premier protein shake, Snack: almonds, Lunch: 3 grilled shrimp, Dinner: premier protein shake, does not drink carbonated beverage * Time to eat meals: 30-40 minutes * Fluid intake: 64 oz. * Diet Stage: regular food. * Exercise frequency: patient exercises daily. * Exercise includes swimming and walking. The patient exercises for 60 minutes per day. * Symptoms: The patient reports loss of appetite, vomiting and food intolerance beef/red meats , but no hunger and no nausea . vomiting approx 3-4 days out of the week after consuming beef/red meats, egg. * Supplements: taking multivitamins, taking B-12, taking calcium and taking Omeprazole. * Patient does not use CPAP/BiPAP. * Comorbidities: anxiety, back pain and esophageal reflux. * GERD * Patient has no reflux. * Patient is using medications for reflux omeprazole. * 46 yo female s/p revisional bariatric surgery on 12/23/[address] Bose. Conversion sleeve gastrectomy to gastric bypass, HHR.Has comorbidities of GERD mild COLE * pt states she has been drinking shakes and eating fish for protein. c/o vomiting at least once, 3-4days out of the week 20 minutes after consuming beef/red meats, eggs. * Heartburn has improved with HHR. taking PPI daily. * Had labs done at PCP office last week, pt will request results to be faxed to our office. KW-Ipdparn-Psyok [address] Work Phone: [phone]) 737-934804-11-2022 History of Present illness Narrative* Type of Surgery: revision: , surgery Date: 12/23/2021. * Weight:. * Initial weight: 260 lbs. * Last visit weight: 208 lbs. * Danielson weight 149 lbs. * Target body weight 196 lbs. * Comorbidities: anxiety, back pain and esophageal reflux. * GERD * Patient has no reflux. * Patient is using medications for reflux omeprazole. * 46 yo female s/p revisional bariatric surgery on 12/23/[address] Bose. Here today for a follow up to hospital discharge. Conversion sleeve gastrectomy to gastric bypass, HHR.Has comorbidities of GERD mild COLE * Presenting to outside ED with PO intolerance. Patient had Upper GI and EGD which showed ulcer and stricture at GJ anastomosis. Patient was transferred to [facility] for further management. Patient had minimal PO intake. VSS. No WBC. Underwent EGD 8/3 w/ dilation of stricture. Post-procedure able to tolerate FLD. Subsequently discharged on FLD w/ outpatient f/u. FW-Lqsrlwd-Vrajo [address] Work Phone: [phone] History of Present illness Narrative* Type of Surgery: revision: , surgery Date: 12/23/2021. * Weight:. * Initial weight: 260 lbs. * Last visit weight: 208 lbs. * Danielson weight 149 lbs. * Target body weight 196 lbs. * Comorbidities: anxiety, back pain and esophageal reflux. * GERD * Patient has no reflux. * Patient is using medications for reflux omeprazole. * 46 yo female s/p revisional bariatric surgery on 12/23/[address] Bose. Here today for a follow up to hospital discharge. Conversion sleeve gastrectomy to gastric bypass, HHR.Has comorbidities of GERD mild COLE * Presenting to outside ED with PO intolerance. Patient had Upper GI and EGD which showed ulcer and stricture at GJ anastomosis. Patient was transferred to [facility] for further management. Patient had minimal PO intake. VSS. No WBC. Underwent EGD 8/3 w/ dilation of stricture. Post-procedure able to tolerate FLD. Subsequently discharged on FLD w/ outpatient f/u. Patient [facility] ER againwith the same symptoms. Discharged home with home health care. BO-Qxxgsvv-Tyxbd MAC[address] Work Phone: [phone]) 992-881004-10-2022 NoteHistory & Physical Reviewed: /Lactating: Are You no Are You Currently Breastfeedingno I have reviewed the History and Physical dated: 19-Dec-2021 History and Physical reviewed and relevant findings noted. Patient examined to review pertinent physical findings.: No significant changes Home Medications Reviewed: no changes noted Allergies Reviewed: no changes noted ERAS (Enhanced Recovery After Surgery): ERAS Patient: no Consent: COVID-19 Consent: COVID-19 Risk ConsentSurgeon has reviewed frost risks related to the risk of kirby COVID-19 and if they contract COVID-19 what the risks are. Assessment/Plan: Assessment and Plan This is a 46 year old female who presents for conversion of sleeve gastrectomy to RYGB. The patient has a BMI of 37.4 and comorbid medical conditions of anxiety, back pain, GERD, and COLE. Past abdominal surgical history of sleeve gastrectomy in 2011. Pre-operative EGD showed a small hiatal hernia. No acute complaints today. Ready for surgery. Attestation: Note Completion: I am a: Resident/Fellow Attending AttestationI saw and evaluated the patient. I personally obtained the frost and critical portions of the history and physical exam or was physically present for frost and critical portions performed by the resident/fellow. I reviewed the resident/fellows documentation and discussed the patient with the resident/fellow. I agree with the resident/fellows medical decision making as documented in the note. I personally evaluated the patient [id number] Electronic Signatures: Brittany Bose) (Signed 24-Dec-2021 09:37) Authored: ERAS, Consent, Note Completion Co-Signer: History & Physical Reviewed, Assessment/Plan, Note Completion Leslie Tony (Fellow)) (Signed 22-Dec-2021 21:13) Authored: History & Physical Reviewed, Assessment/Plan, Note Completion Last Updated: 24-Dec-2021 09:37 by Brittany Bose)[facility] 12-10-2021 History of Present illness Narrative* 45 year F with pmhx including anxiety, GERD, nausea, obesity/ bariatric surgery candidate, ADHD on Vyvanse (around 7am and noon) , hypothyroidism. * Patient had a bariatric surgery done in 2010, gastric sleeve; and will have a revision bariatric surgery done soon. * Patient had another sleep study done (12/04/21?) as she believes she does not have sleep apnea-->results pending. * download from end 2020 did not show good compliance. Patient will continue to try to use pap more regularly. patient did provide us with a more updated report as shown below. * Download * 11/25/21-12/08/21 * usage days , 93% * >=4hrs 10 days, 71%. * average usage on days used 4hr 22min * autopap 5-15cwp, EPR 3. * pressure meidan: 5.5, 95th percentile: 7.5 * leak median 0, 95th percentile 4.6, max 8.8. * rAHI 0.7 * Weekdays/Work/School Days: usual bed time: 8:15pm , usual wake time: 7am and falls asleep at about:8:30pm. * Weekends/Off Work/Vacation Days: usual bed time: 9-10pm , usual wake time: 9am and falls asleep at about: 10pm . * Class/School/Work Schedule: works from home 80% of time. * Naps: Patient Does Not Nap. * SLEEP DURATION: 8hrs. * SLEEP INITIATION: Takes 15min to fall asleep. * SLEEP MAINTENANCE: wakes up about one time a night. Problems staying asleep associated with GI probems and vomiting. * BREATHING DURING SLEEP: No snoring during sleep. No witnessed apneas. No gasping/choking for air. No nasal congestion during sleep. No mouth breathing during sleep. Nocturnal gastroesophageal reflux.No nocturnal cough. * Sleep Positioning: supine and side. * MORNING SYMPTOMS: No morning headaches. No morning dry mouth. No morning sore throat. Stimulant use. * DAYTIME: No daytime sleepiness. No fatigue. No drowsy driving. No history of car accidents due to drowsy driving. No near-miss car accidents due to drowsy driving. * CAFFEINE USAGE: No caffeine usage. * HYPERSOMNIA: No sleep paralysis. No cataplexy. No sleep related hallucinations. * LEGS AT NIGHT: No symptoms of restless legs syndrome (RLS). * MOVEMENTS IN SLEEP: No bruxism (teeth grinding). * PARASOMNIA: No sleeptalking. No sleepwalking. Does not act out of dream. No nightmares. * Perceived Benefits of PAP Therapy: decreased snoring/ choking/ gasping. -Sleep Medicine-[facility] [address] Work Phone: [phone] 448-854403-28-2022 History of Present illness Narrative* 45 year F with pmhx including anxiety, GERD, nausea, obesity/ bariatric surgery candidate, ADHD on Vyvanse (around 7am and noon) , hypothyroidism. * Patient had a bariatric surgery done in 2010, gastric sleeve; and will have a revision bariatric surgery done soon. * Patient had another sleep study done (12/04/21?) as she believes she does not have sleep apnea-->results pending. * face mask * Weekdays/Work/School Days: usual bed time: 8:15pm , usual wake time: 7am and falls asleep at about:8:30pm. * Weekends/Off Work/Vacation Days: usual bed time: 9-10pm , usual wake time: 9am and falls asleep at about: 10pm . * Class/School/Work Schedule: works from home 80% of time. * Naps: Patient Does Not Nap. * SLEEP DURATION: 8hrs. * SLEEP INITIATION: Takes 15min to fall asleep. * SLEEP MAINTENANCE: wakes up about one time a night. Problems staying asleep associated with GI probems and vomiting. * BREATHING DURING SLEEP: No snoring during sleep. No witnessed apneas. No gasping/choking for air. No nasal congestion during sleep. No mouth breathing during sleep. Nocturnal gastroesophageal reflux.No nocturnal cough. * Sleep Positioning: supine and side. * MORNING SYMPTOMS: No morning headaches. No morning dry mouth. No morning sore throat. Stimulant use. * DAYTIME: No daytime sleepiness. No fatigue. No drowsy driving. No history of car accidents due to drowsy driving. No near-miss car accidents due to drowsy driving. * CAFFEINE USAGE: No caffeine usage. * HYPERSOMNIA: No sleep paralysis. No cataplexy. No sleep related hallucinations. * LEGS AT NIGHT: No symptoms of restless legs syndrome (RLS). * MOVEMENTS IN SLEEP: No bruxism (teeth grinding). * PARASOMNIA: No sleeptalking. No sleepwalking. Does not act out of dream. No nightmares. * Perceived Benefits of PAP Therapy: decreased snoring/ choking/ gasping. [facility] [id number] Work Phone: [phone] 163-946003-24-2022 Chief complaint Narrative - Reported* An interactive audio and video telecommunication system which permits real time communications between the patient (at the originating site) and provider (at the distant site) was utilized to providethis telehealth service. * Verbal consent was requested and obtained from MELINA DÍAZ on this date, 12/05/2021 09:00 AM , for a telehealth visit. * Pt is follow up on sleep apnea -Sleep Medicine-[facility] [address] Work Phone: [phone] 562-872403-24-2022 History of Present illness Narrative* 45 year F with pmhx including anxiety, GERD, nausea, obesity/ bariatric surgery candidate, ADHD on Vyvanse (around 7am and noon) , hypothyroidism. * Patient had a bariatric surgery done in 2010, gastric sleeve; and will have a revision bariatric surgery done soon. * Patient had another sleep study done (12/04/21?) as she believes she does not have sleep apnea-->results pending. * face mask * Weekdays/Work/School Days: usual bed time: 8:15pm , usual wake time: 7am and falls asleep at about:8:30pm. * Weekends/Off Work/Vacation Days: usual bed time: 9-10pm , usual wake time: 9am and falls asleep at about: 10pm . * Class/School/Work Schedule: works from home 80% of time. * Naps: Patient Does Not Nap. * SLEEP DURATION: 8hrs. * SLEEP INITIATION: Takes 15min to fall asleep. * SLEEP MAINTENANCE: wakes up about one time a night. Problems staying asleep associated with GI probems and vomiting. * BREATHING DURING SLEEP: No snoring during sleep. No witnessed apneas. No gasping/choking for air. No nasal congestion during sleep. No mouth breathing during sleep. Nocturnal gastroesophageal reflux.No nocturnal cough. * Sleep Positioning: supine and side. * MORNING SYMPTOMS: No morning headaches. No morning dry mouth. No morning sore throat. Stimulant use. * DAYTIME: No daytime sleepiness. No fatigue. No drowsy driving. No history of car accidents due to drowsy driving. No near-miss car accidents due to drowsy driving. * CAFFEINE USAGE: No caffeine usage. * HYPERSOMNIA: No sleep paralysis. No cataplexy. No sleep related hallucinations. * LEGS AT NIGHT: No symptoms of restless legs syndrome (RLS). * MOVEMENTS IN SLEEP: No bruxism (teeth grinding). * PARASOMNIA: No sleeptalking. No sleepwalking. Does not act out of dream. No nightmares. * Perceived Benefits of PAP Therapy: decreased snoring/ choking/ gasping. [facility] [id number] [facility] Work Phone: [phone] Chief complaint Narrative - Reported* An interactive audio and video telecommunication system which permits real time communications between the patient (at the originating site) and provider (at the distant site) was utilized to providethis telehealth service. * Verbal consent was requested and obtained from MELINA ARJUN on this date, 07/29/2021 08:00 AM , for a telehealth visit. * review sleep study results [facility] [id number] DO Work Phone: [phone] History of Present illness Narrative* 45 year F with pmhx including anxiety, GERD, nausea, obesity/ bariatric surgery candidate, ADHD on Adderall (around 7am and noon) , hypothyroidism. * patient had a bariatric surgery done in 2010, gastric sleeve; and will have a revision bariatric surgery done soon. * She recently had a sleep study done and would like to go over her results. * Weekdays/Work/School Days: usual bed time: 8:15pm , usual wake time: 7am and falls asleep at about:8:30pm. * Weekends/Off Work/Vacation Days: usual bed time: 9-10pm , usual wake time: 9am and falls asleep at about: 10pm . * Class/School/Work Schedule: works from home 80% of time. * Naps: Patient Does Not Nap. * SLEEP DURATION: 8hrs. * SLEEP INITIATION: Takes 15min to fall asleep. * SLEEP MAINTENANCE: wakes up about one time a night. Problems staying asleep associated with GI probems and vomiting. * BREATHING DURING SLEEP: No snoring during sleep. No witnessed apneas. No gasping/choking for air. No nasal congestion during sleep. No mouth breathing during sleep. Nocturnal gastroesophageal reflux.No nocturnal cough. * Sleep Positioning: supine and side. * MORNING SYMPTOMS: No morning headaches. No morning dry mouth. No morning sore throat. Unrefreshing sleep. Patient denies stimulant use. * DAYTIME: No daytime sleepiness. No fatigue. No drowsy driving. No history of car accidents due to drowsy driving. No near-miss car accidents due to drowsy driving. * CAFFEINE USAGE: No caffeine usage. * HYPERSOMNIA: No sleep paralysis. No cataplexy. No sleep related hallucinations. * LEGS AT NIGHT: No symptoms of restless legs syndrome (RLS). * MOVEMENTS IN SLEEP: No bruxism (teeth grinding). * PARASOMNIA: No sleeptalking. No sleepwalking. Does not act out of dream. No nightmares. [facility] [id number] DO Work Phone: [phone] History of Present illness Narrative* 45 year F with pmhx including anxiety, GERD, nausea, obesity/ bariatric surgery candidate, ADHD on Adderall (around 7am and noon) , hypothyroidism. * patient had a bariatric surgery done in 2010, gastric sleeve; and will have a revision bariatric surgery done soon. * She recently had a sleep study done and would like to go over her results. * Weekdays/Work/School Days: usual bed time: 8:15pm , usual wake time: 7am and falls asleep at about:8:30pm. * Weekends/Off Work/Vacation Days: usual bed time: 9-10pm , usual wake time: 9am and falls asleep at about: 10pm . * Class/School/Work Schedule: works from home 80% of time. * Naps: Patient Does Not Nap. * SLEEP DURATION: 8hrs. * SLEEP INITIATION: Takes 15min to fall asleep. * SLEEP MAINTENANCE: wakes up about one time a night. Problems staying asleep associated with GI probems and vomiting. * BREATHING DURING SLEEP: No snoring during sleep. No witnessed apneas. No gasping/choking for air. No nasal congestion during sleep. No mouth breathing during sleep. Nocturnal gastroesophageal reflux.No nocturnal cough. * Sleep Positioning: supine and side. * MORNING SYMPTOMS: No morning headaches. No morning dry mouth. No morning sore throat. Unrefreshing sleep. Stimulant use. * DAYTIME: No daytime sleepiness. No fatigue. No drowsy driving. No history of car accidents due to drowsy driving. No near-miss car accidents due to drowsy driving. * CAFFEINE USAGE: No caffeine usage. * HYPERSOMNIA: No sleep paralysis. No cataplexy. No sleep related hallucinations. * LEGS AT NIGHT: No symptoms of restless legs syndrome (RLS). * MOVEMENTS IN SLEEP: No bruxism (teeth grinding). * PARASOMNIA: No sleeptalking. No sleepwalking. Does not act out of dream. No nightmares. [facility] [id number] DO Work Phone: [phone] NoteSend Summary: Discharge Summary Providers: Provider RoleProvider Name Jose Valentin AttendingJamie, Jose ConsultingArnel, Ro ConsultingGoran, Rom ConsultingRangel, Brittany [facility], Sean Note Recipients: Yg James MD Discharge: Summary: Admission Date: .24-May-2021 17:00:00 Discharge Date: 30-May-2021 Attending Physician at Discharge: Jose Ayala Admission Reason: Intractable abdominal pain(1) Final Discharge Diagnoses: Abdominal pain Procedures: er Díaz Procedure Date: 05/27/2021 8:03 AM Date of : 1975 Admit Type: Inpatient Site: [facility] Endoscopy Room 1 Ethnicity: Not or Race: White Attending MD: Elmer May 27, 2021 Condition at Discharge: Satisfactory Disposition at Discharge: .Home Physical Exam: Constitutional: Well developed, awake/alert/oriented x3, no distress, alert and cooperative Eyes: PERRL, EOMI, clear sclera ENMT: mucous membranes moist, no apparent injury, no lesions seen Head/Neck: Neck supple, no apparent injury, thyroid without mass or tenderness, No JVD, trachea midline, no bruits Respiratory/Thorax: Patent airways, CTAB, normal breath sounds with good chest expansion, thorax symmetric Cardiovascular: Regular, rate and rhythm, no murmurs, 2+ equal pulses of the extremities, normal S 1and S 2 Gastrointestinal: Nondistended, soft, no pain when pushing on abdomen with stethoscope but reports pain to very light touch when palpated Musculoskeletal: ROM intact, no joint swelling, normal strength Extremities: normal extremities, no cyanosis edema, contusions or wounds, no clubbing Neurological: alert and oriented x3, intact senses, motor, response and reflexes, normal strength Lymphatic: No significant lymphadenopathy Psychological: Appropriate mood and behavior Skin: Warm and dry, no lesions, no rashes; loose skin Hospital Course: Melina is a 45-year-old female patient is alert and oriented x3 presents to emergency department with complaint of nausea and intractable abdominal pain. Patient has a history of sleeve gastrectomy and had a recent follow-up with bariatric surgery via virtual call yesterday morning. Patient states she has been experiencing a several day history of inability to keep down food or fluids. Labs and imaging both unremarkable. Patient medicated for pain, nausea vomiting, IV fluids infusing. She exhibited drug seeking behavior including asking for specific pain medicines by name and demanding IV benadryl. She was seen by Bariatric Surgery and GI. She claimed a recent EGD showed ulcers, however EGD this admission showed post-operative changes but no ulcers or evidence of healing ulcers. She was discharged home to follow up with Bariatric Surgery. Discharge Information: and Continuing Care: Lab Results - Pending: None Radiology Results - Pending: None Discharge Instructions: as above Discharge Medications: Home Medication Adderall 20 mg oral tablet - 1 tab(s) orally 2 times a day B-12 1000 mcg oral tablet - 1000 microgram(s) injectable once a week-THURSDAY Synthroid 50 mcg (0.05 mg) oral tablet - 1 tab(s) orally once a day Reglan 10 mg oral tablet - 1 tab(s) orally 3 times a day docusate sodium 100 mg oral capsule - 1 cap(s) orally 2 times a day sucralfate 1 g/10 mL oral suspension - 10 milliliter(s) orally 4 times a day - 4 Times a Day Before Meals pantoprazole 40 mg oral delayed release tablet - 1 tab(s) orally 2 times a day Pepcid 20 mg oral tablet - 1 tab(s) orally 2 times a day cholestyramine 4 g/5 g oral powder for reconstitution - 1 packet(s) orally 2 times a day Benadryl 25 mg oral tablet - 1 tab(s) orally once a day (at bedtime) PRN Medication ondansetron 8 mg oral tablet, disintegrating - 1 tab(s) orally every 8 hours, As Needed promethazine 25 mg oral tablet - 1 tab(s) orally every 6 hours, As Needed promethazine 25 mg rectal suppository - 1 suppository(ies) rectal every 6 hours, As Needed eletriptan 40 mg oral tablet - 1 tab(s) orally every 2 hours, As Needed ALPRAZolam 0.5 mg oral tablet - 1 tab(s) orally once a day, As Needed oxyCODONE 5 mg oral capsule - 1 cap(s) orally every 6 hours, As Needed Electronic Signatures: Jose Ayala) (Signed 23-Jul-2021 22:08) Authored: Send Summary, Summary Content, Ongoing Care, Note Completion Last Updated: 23-Jul-2021 22:08 by Jose Ayala () References: 1. Data Referenced From History and Physical 25-May-2021 23:[address] [place], [place] [address]65609-12-2021 NoteHistory of Present Illness: /Lactating: Are You no (1) Are You Currently Breastfeedingno (1) Admission Reason: Intractable abdominal pain HPI: MELINA DÍAZ is a 45 year old female with past medical history significant for sleeve gastrectomy, obesity who presents to emergency department with complaint of abdominal pain. Patient states that for the last several days she has been unable to keep down anything to eat or drink. Patient had a virtual visit with the bariatric surgeon for follow-up of her sleeve gastrectomy which was completed in approximately 2011. In ER patient was evaluated by surgery and recommendations placed. Upon examination, patient has alert and nontoxic looking. Patient denies chest pain, dizziness, shortness of breath, fever, recent illness. In ER, labs were completed and are unremarkable, CT of the abdomen and pelvis completed and negative except for a small hiatal hernia. Urinalysis completed and is negative. Blood pressure is 132/75, heart rate 73, respirations 20, temperature 37.4 C, SPO2 97% on room air. Patient has a negative physical exam, requesting multiple doses of pain medications. Of note, patient reports being diagnosed with PUD recently during an EGD from her general practitioner. PMH: as above PSH: Sleeve gastrectomy, cholecystectomy, hysterectomy, x3, EGD Social Hx.: Never smoker, no drug use, no alcohol use Family Hx.: Reviewed and not pertinent to presenting complaint A 10 point view of systems was completed and negative except what is listed in HPI Social History: Social History: Smoking Statusnever smoker (2) Alcohol Usedenies(2) Drug Usedenies (2) Drug 2 Usedenies (2) Allergies: NKDA: Tape - Adhesive, Bandaids, Paper: Other Aspartame: Other Intolerances: Nexium: Unknown Medications Prior to Admission: Orders Reconciliation is incomplete. Adderall 20 mg oral tablet: 1 tab(s) orally 2 times a day pantoprazole 40 mg oral delayed release tablet: 1 tab(s) orally 2 times a day Reglan 10 mg oral tablet: 1 tab(s) orally 3 times a day B-12 1000 mcg oral tablet: 1000 microgram(s) injectable once a week oxyCODONE 5 mg oral capsule: 1 cap(s) orally every 6 hours, As Needed Synthroid 50 mcg (0.05 mg) oral tablet: 1 tab(s) orally once a day ALPRAZolam 0.5 mg oral tablet: 1 tab(s) orally once a day, As Needed. Objective: Objective Information: T PRBPSpO2 [id number]/6195% Date/Time05/25 21: 21: 21: 21: 21:23 Range(36.5C - 37.1C ) (60 - 77 ) (16 - 20 ) (106 - 134 )/ (58 - 81 ) (95% - 98% ) Highest temp of 37.1 C was recorded at 05/25 0:00 Pain reported at 05/25 15:00: 8 = Severe Physical Exam by System: Constitutional: Well developed, awake/alert/oriented x3, no distress, alert and cooperative Eyes: PERRL, EOMI, clear sclera ENMT: mucous membranes moist, no apparent injury, no lesions seen Head/Neck: Neck supple, no apparent injury, thyroid without mass or tenderness, No JVD, trachea midline, no bruits Respiratory/Thorax: Patent airways, CTAB, normal breath sounds with good chest expansion, thorax symmetric Cardiovascular: Regular, rate and rhythm, no murmurs, 2+ equal pulses of the extremities, normal S 1and S 2 Gastrointestinal: Nondistended, soft, non-tender, no rebound tenderness or guarding, no masses palpable, no organomegaly, +BS, no bruits Musculoskeletal: ROM intact, no joint swelling, normal strength Extremities: normal extremities, no cyanosis edema, contusions or wounds, no clubbing Neurological: alert and oriented x3, intact senses, motor, response and reflexes, normal strength Lymphatic: No significant lymphadenopathy Psychological: Appropriate mood and behavior Skin: Warm and dry, no lesions, no rashes; loose skin Medications: Medications: Continuous Medications 1. Sodium Chloride 0.9% Infusion: 1000 mL IntraVenous Scheduled Medications 1. Amphetamine - Dextroamphetamine: 20 mg Oral 2 Times a Day 2. Docusate: 100 mg Oral 2 Times a Day 3. Heparin SubCutaneous: 5000 unit(s) SubCutaneous Every 8 Hours 4. Influenza Virus QUADRIVALENT (Inactive) ADULT Vaccine: 0.5 mL IntraMuscular Once 5. Levothyroxine: 50 microgram(s) Oral Daily 6. Pantoprazole Injectable: 40 mg IntraVenous Push Every 12 Hours 7. Sucralfate Oral Liquid: 1 gram(s) Oral 4 Times a Day Before Meals PRN Medications 1. diphenhydrAMINE Injectable: 25 mg IntraVenous Push Every 8 Hours 2. HYDROmorphone Injectable: 0.3 mg IntraVenous Push Every 4 Hours 3. LORazepam Injectable: 1 mg IntraVenous Push Every 8 Hours 4. Promethazine IV Piggy Back: 12.5 mg IntraVenous Piggyback Every 6 Hours Recent Lab Results: Results: CBC: 05/25/2021 08:04 \ Hgb / \ 10.5 L / WBC Plt 4.0 L (more content not included)...[facility]09-11-2021 NoteHistory of Present Illness: /Lactating: Are You no (1) Are You Currently Breastfeedingno (1) Admission Reason: Intractable abdominal pain HPI: MELINA DÍAZ is a 45 year old female with past medical history significant for sleeve gastrectomy, obesity who presents to emergency department with complaint of abdominal pain. Patient states that for the last several days she has been unable to keep down anything to eat or drink. Patient had a virtual visit with the bariatric surgeon for follow-up of her sleeve gastrectomy which was completed in approximately 2011. In ER patient was evaluated by surgery and recommendations placed. Upon examination, patient has alert and nontoxic looking. Patient denies chest pain, dizziness, shortness of breath, fever, recent illness. In ER, labs were completed and are unremarkable, CT of the abdomen and pelvis completed and negative except for a small hiatal hernia. Urinalysis completed and is negative. Blood pressure is 132/75, heart rate 73, respirations 20, temperature 37.4 C, SPO2 97% on room air. Patient has a negative physical exam, requesting multiple doses of pain medications. Observation admission to Dr. Jose Ayala who will continue to follow patient. I was asked to do H&P and place initial admission orders. PMH: as above PSH: Sleeve gastrectomy, cholecystectomy, hysterectomy, x3, EGD Social Hx.: Never smoker, no drug use, no alcohol use Family Hx.: Reviewed and not pertinent to presenting complaint A 10 point view of systems was completed and negative except what is listed in HPI Social History: Social History: Smoking Statusnever smoker (1) Alcohol Usedenies(1) Drug Usedenies (1) Drug 2 Usedenies (1) Allergies: NKDA: Tape - Adhesive, Bandaids, Paper: Other Aspartame: Other Intolerances: Nexium: Unknown Medications Prior to Admission: Home meds have been reviewed, but review is not yet complete Orders Reconciliation is incomplete. Adderall 20 mg oral tablet: 1 tab(s) orally 2 times a day pantoprazole 40 mg oral delayed release tablet: 1 tab(s) orally 2 times a day Reglan 10 mg oral tablet: 1 tab(s) orally 3 times a day B-12 1000 mcg oral tablet: 1000 microgram(s) injectable once a week oxyCODONE 5 mg oral capsule: 1 cap(s) orally every 6 hours, As Needed Synthroid 50 mcg (0.05 mg) oral tablet: 1 tab(s) orally once a day ALPRAZolam 0.5 mg oral tablet: 1 tab(s) orally once a day, As Needed. Objective: Objective Information: T PRBPSpO2 [id number]/6897% Date/Time05/25 1: 1: 1: 1: 1:37 Range(36.7C - 37.4C ) (60 - 73 ) (16 - 20 ) (128 - 162 )/ (68 - 81 ) (97% - 99% ) Highest temp of 37.4 C was recorded at 05/24 17:07 Pain reported at 05/25 1:41: 8 = Severe T PRBPSpO2 [id number]/6897% Date/Time05/25 1: 1: 1: 1: 1:37 Range(36.7C - 37.4C ) (60 - 73 ) (16 - 20 ) (128 - 162 )/ (68 - 81 ) (97% - 99% ) Highest temp of 37.4 C was recorded at 05/24 17:07 Pain reported at 05/25 1:41: 8 = Severe Weights 05/25 1:20: Weight in kg (Weight (kg)) 118.2 05/25 1:20: Weight in lbs ((lbs)) 260.5 05/25 1:20: BMI (kg/m2) (BMI (kg/m2)) 39.63 Physical Exam by System: Constitutional: Well developed, awake/alert/oriented x3, no distress, alert and cooperative Eyes: PERRL, EOMI, clear sclera ENMT: mucous membranes moist, no apparent injury, no lesions seen Head/Neck: Neck supple, no apparent injury, thyroid without mass or tenderness, No JVD, trachea midline, no bruits Respiratory/Thorax: Patent airways, CTAB, normal breath sounds with good chest expansion, thorax symmetric Cardiovascular: Regular, rate and rhythm, no murmurs, 2+ equal pulses of the extremities, normal S 1and S 2 Gastrointestinal: Nondistended, soft, non-tender, no rebound tenderness or guarding, no masses palpable, no organomegaly, +BS, no bruits Musculoskeletal: ROM intact, no joint swelling, normal strength Extremities: normal extremities, no cyanosis edema, contusions or wounds, no clubbing Neurological: alert and oriented x3, intact senses, motor, response and reflexes, normal strength Lymphatic: No significant lymphadenopathy Psychological: Appropriate mood and behavior Skin: Warm and dry, no lesions, no rashes; loose skin Medications: Medications: Continuous Medications 1. Sodium Chloride 0.9% Infusion: 1000 mL IntraVenous Scheduled Medications 1. Amphetamine - Dextroamphetamine: 20 mg Oral 2 Times a Day 2. diphenhydrAMINE: 25 mg Oral Once 3. Docusate: 100 mg Oral 2 Times a Day 4. Heparin SubCutaneous: 5000 unit(s) SubCutaneous Every 8 Hours 5. Iohexol (Omnipaque 350-Radiology Contrast): 150 mL IntraVenous Push Once 6. Iohexol (Omnipaque 350-Radiology Contrast): 150 mL IntraVenous Push Once 7. Levothyroxine: 50 (more content not included)...[facility] 05-01-2014 History of Past illness Narrative* Problem Noted Date Resolved Date Excess skin of abdomen 05/01/2014 2 induced hypertension 1 10/12/2021 Excess skin of arm 08/12/2022 Localized adiposity 08/12/2022 documented as of this encounter (statuses as of 08/12/2022) [facility]08-18-2014 History of Past illness Narrative* Problem Noted Date Resolved Date Excess skin of abdomen 05/01/2014 2 induced hypertension 1 10/12/2021 Excess skin of arm 08/12/2022 Localized adiposity 08/12/2022 documented as of this encounter (statuses as of 08/12/2022) [facility]08-18-2014 History of Past illness Narrative* Problem Noted Date Resolved Date Excess skin of abdomen 05/01/2014 2 induced hypertension 1 10/12/2021 Excess skin of arm 08/12/2022 Localized adiposity 08/12/2022 documented as of this encounter (statuses as of 08/12/2022) [facility]08-18-2014 History of Past illness Narrative* Problem Noted Date Resolved Date Excess skin of abdomen 05/01/2014 2 induced hypertension 1 10/12/2021 Excess skin of arm 08/12/2022 Localized adiposity 08/12/2022 documented as of this encounter (statuses as of 08/13/2022) [facility] History of Past illness Narrative* Problem Noted Date Resolved Date Excess skin of abdomen 05/01/2014 2 induced hypertension 1 10/12/2021 Excess skin of arm 08/12/2022 Localized adiposity 08/12/2022 documented as of this encounter (statuses as of 08/14/2022) [facility] History of Past illness Narrative* Problem Noted Date Resolved Date Excess skin of abdomen 05/01/2014 2 induced hypertension 1 10/12/2021 Excess skin of arm 08/12/2022 Localized adiposity 08/12/2022 documented as of this encounter (statuses as of 08/15/2022) [facility]2014 History of Past illness Narrative* Problem Noted Date Resolved Date Excess skin of abdomen 05/01/2014 2 induced hypertension 1 10/12/2021 Excess skin of arm 08/12/2022 Localized adiposity 08/12/2022 documented as of this encounter (statuses as of 08/18/2022) [facility] History of Past illness Narrative* Problem Noted Date Resolved Date Excess skin of abdomen 05/01/2014 2 induced hypertension 1 10/12/2021 Excess skin of arm 08/12/2022 Localized adiposity 08/12/2022 documented as of this encounter (statuses as of 08/18/2022) [facility] History of Past illness Narrative* Problem Noted Date Resolved Date Excess skin of abdomen 05/01/2014 2 induced hypertension 1 10/12/2021 Excess skin of arm 08/12/2022 Localized adiposity 08/12/2022 documented as of this encounter (statuses as of 08/19/2022) [facility] History of Past illness Narrative* Problem Noted Date Resolved Date Excess skin of abdomen 05/01/2014 2 induced hypertension 1 10/12/2021 Excess skin of arm 08/12/2022 Localized adiposity 08/12/2022 documented as of this encounter (statuses as of 08/19/2022) [facility] History of Past illness Narrative* Problem Noted Date Resolved Date Excess skin of abdomen 05/01/2014 2 induced hypertension 1 10/12/2021 Excess skin of arm 08/12/2022 Localized adiposity 08/12/2022 documented as of this encounter (statuses as of 08/22/2022) [address]18-2014 History of Past illness Narrative* Problem Noted Date Resolved Date Excess skin of abdomen 05/01/2014 2 induced hypertension 1 10/12/2021 Excess skin of arm 08/12/2022 Localized adiposity 08/12/2022 documented as of this encounter (statuses as of 08/26/2022) [facility] History of Past illness Narrative* Problem Noted Date Resolved Date Excess skin of abdomen 05/01/2014 2 induced hypertension 1 10/12/2021 Excess skin of arm 08/12/2022 Localized adiposity 08/12/2022 documented as of this encounter (statuses as of 08/28/2022) [facility]2014 History of Past illness Narrative* Problem Noted Date Resolved Date Excess skin of abdomen 05/01/2014 2 induced hypertension 1 10/12/2021 Excess skin of arm 08/12/2022 Localized adiposity 08/12/2022 documented as of this encounter (statuses as of 08/29/2022) [facility] History of Past illness Narrative* Problem Noted Date Resolved Date Excess skin of abdomen 05/01/2014 2 induced hypertension 1 10/12/2021 Excess skin of arm 08/12/2022 Localized adiposity 08/12/2022 documented as of this encounter (statuses as of 08/29/2022) [place] [id number] History of Past illness Narrative* Problem Noted Date Resolved Date Excess skin of abdomen 05/01/2014 2 induced hypertension 1 10/12/2021 Excess skin of arm 08/12/2022 Localized adiposity 08/12/2022 documented as of this encounter (statuses as of 08/30/2022) [place] [id number] History of Past illness Narrative* Problem Noted Date Resolved Date Excess skin of abdomen 05/01/2014 2 induced hypertension 1 10/12/2021 Excess skin of arm 08/12/2022 Localized adiposity 08/12/2022 documented as of this encounter (statuses as of 09/05/2022) [facility] History of Past illness Narrative* Problem Noted Date Resolved Date Excess skin of abdomen 05/01/2014 2 induced hypertension 1 10/12/2021 Excess skin of arm 08/12/2022 Localized adiposity 08/12/2022 documented as of this encounter (statuses as of 09/05/2022) [facility]2014 History of Past illness Narrative* Problem Noted Date Resolved Date Excess skin of abdomen 05/01/2014 2 induced hypertension 1 10/12/2021 Excess skin of arm 08/12/2022 Localized adiposity 08/12/2022 documented as of this encounter (statuses as of 09/07/2022) [facility]2014 History of Past illness Narrative* Problem Noted Date Resolved Date Excess skin of abdomen 05/01/2014 2 induced hypertension 1 10/12/2021 Excess skin of arm 08/12/2022 Localized adiposity 08/12/2022 documented as of this encounter (statuses as of 09/17/2022) [facility] History of Past illness Narrative* Problem Noted Date Resolved Date Excess skin of abdomen 05/01/2014 2 induced hypertension 1 10/12/2021 Excess skin of arm 08/12/2022 Localized adiposity 08/12/2022 documented as of this encounter (statuses as of 09/19/2022) [facility] History of Past illness Narrative* Problem Noted Date Resolved Date Excess skin of abdomen 05/01/2014 2 induced hypertension 1 10/12/2021 Excess skin of arm 08/12/2022 Localized adiposity 08/12/2022 documented as of this encounter (statuses as of 09/20/2022) [place] [id number] History of Past illness Narrative* Problem Noted Date Resolved Date Excess skin of abdomen 05/01/2014 2 induced hypertension 1 10/12/2021 Excess skin of arm 08/12/2022 Localized adiposity 08/12/2022 documented as of this encounter (statuses as of 09/22/2022) [address]18-2014 History of Past illness Narrative* Problem Noted Date Resolved Date Excess skin of abdomen 05/01/2014 2 induced hypertension 1 10/12/2021 Excess skin of arm 08/12/2022 Localized adiposity 08/12/2022 documented as of this encounter (statuses as of 09/26/2022) [facility] History of Past illness Narrative* Problem Noted Date Resolved Date Excess skin of abdomen 05/01/2014 2 induced hypertension 1 10/12/2021 Excess skin of arm 08/12/2022 Localized adiposity 08/12/2022 documented as of this encounter (statuses as of 10/04/2022) [facility]2014 History of Past illness Narrative* Problem Noted Date Resolved Date Excess skin of abdomen 05/01/2014 2 induced hypertension 1 10/12/2021 Excess skin of arm 08/12/2022 Localized adiposity 08/12/2022 documented as of this encounter (statuses as of 11/18/2022) [facility]2014 History of Past illness Narrative* Problem Noted Date Resolved Date Excess skin of abdomen 05/01/2014 2 induced hypertension 1 10/12/2021 Excess skin of arm 08/12/2022 Localized adiposity 08/12/2022 documented as of this encounter (statuses as of 12/12/2022) [facility]2014 History of Past illness Narrative* Problem Noted Date Diagnosed Date Resolved Date Excess skin of abdomen 05/01/201408/12 induced hypertension 08/12/2022 Excess skin of arm 2 Localized adiposity 08/12/20 22 documented as of this encounter (statuses as of 03/27/2023) [facility]2014 History of Past illness Narrative* Problem Noted Date Diagnosed Date Resolved Date Excess skin of abdomen 05/01/201408/12 induced hypertension 08/12/2022 Excess skin of arm 2 Localized adiposity 08/12/20 22 documented as of this encounter (statuses as of 03/28/2023) [facility]2014 History of Past illness Narrative* Problem Noted Date Diagnosed Date Resolved Date Excess skin of abdomen 05/01/201408/12 induced hypertension 08/12/2022 Excess skin of arm 2 Localized adiposity 08/12/20 22 documented as of this encounter (statuses as of 04/02/2023) [facility] History of Past illness Narrative* Problem Noted Date Diagnosed Date Resolved Date Excess skin of abdomen 05/01/201408/12 induced hypertension 08/12/2022 Excess skin of arm 2 Localized adiposity 08/12/20 22 documented as of this encounter (statuses as of 04/06/2023) [facility] History of Past illness Narrative* Problem Noted Date Diagnosed Date Resolved Date Excess skin of abdomen 05/01/201408/12 induced hypertension 08/12/2022 Excess skin of arm 2 Localized adiposity 08/12/20 22 documented as of this encounter (statuses as of 04/10/2023) [facility] History of Past illness Narrative* Problem Noted Date Diagnosed Date Resolved Date Excess skin of abdomen 05/01/201408/12 induced hypertension 08/12/2022 Excess skin of arm 2 Localized adiposity 08/12/20 22 documented as of this encounter (statuses as of 04/10/2023) [facility]2014 History of Past illness Narrative* Problem Noted Date Diagnosed Date Resolved Date Excess skin of abdomen 05/01/201408/12 induced hypertension 08/12/2022 Excess skin of arm 2 Localized adiposity 08/12/20 22 documented as of this encounter (statuses as of 04/16/2023) [facility]2014 History of Past illness Narrative* Problem Noted Date Diagnosed Date Resolved Date Excess skin of abdomen 05/01/201408/12 induced hypertension 08/12/2022 Excess skin of arm 2 Localized adiposity 08/12/20 22 documented as of this encounter (statuses as of 05/01/2023) [facility]2014 History of Past illness Narrative* Problem Noted Date Diagnosed Date Resolved Date Excess skin of abdomen 05/01/201408/12 induced hypertension 08/12/2022 Excess skin of arm 2 Localized adiposity 08/12/20 22 documented as of this encounter (statuses as of 05/02/2023) [facility]2014 History of Past illness Narrative* Problem Noted Date Diagnosed Date Resolved Date Excess skin of abdomen 05/01/201408/12 induced hypertension 08/12/2022 Excess skin of arm 2 Localized adiposity 08/12/20 22 documented as of this encounter (statuses as of 05/14/2023) [facility]2014 History of Past illness Narrative* Problem Noted Date Diagnosed Date Resolved Date Excess skin of abdomen 05/01/201408/12 induced hypertension 08/12/2022 Excess skin of arm 2 Localized adiposity 08/12/20 22 documented as of this encounter (statuses as of 05/15/2023) [facility]2014 History of Past illness Narrative* Problem Noted Date Diagnosed Date Resolved Date Excess skin of abdomen 05/01/201408/12 induced hypertension 08/12/2022 Excess skin of arm 2 Localized adiposity 08/12/20 22 documented as of this encounter (statuses as of 05/20/2023) [facility]2014 History of Past illness Narrative* Problem Noted Date Diagnosed Date Resolved Date Excess skin of abdomen 05/01/201408/12 induced hypertension 08/12/2022 Excess skin of arm 2 Localized adiposity 08/12/20 22 documented as of this encounter (statuses as of 06/02/2023) [facility] History of Past illness Narrative* Problem Noted Date Diagnosed Date Resolved Date Excess skin of abdomen 05/01/201408/12 induced hypertension 08/12/2022 Excess skin of arm 2 Localized adiposity 08/12/20 22 documented as of this encounter (statuses as of 06/15/2023) [facility] History of Past illness Narrative* Problem Noted Date Diagnosed Date Resolved Date Excess skin of abdomen 05/01/201408/12 induced hypertension 08/12/2022 Excess skin of arm 2 Localized adiposity 08/12/20 22 documented as of this encounter (statuses as of 06/20/2023) [facility] History of Past illness Narrative* Problem Noted Date Diagnosed Date Resolved Date Excess skin of abdomen 05/01/201408/12 induced hypertension 08/12/2022 Excess skin of arm 2 Localized adiposity 08/12/20 22 documented as of this encounter (statuses as of 06/26/2023) [facility] History of Past illness Narrative* Problem Noted Date Diagnosed Date Resolved Date Excess skin of abdomen 05/01/201408/12 induced hypertension 08/12/2022 Excess skin of arm 2 Localized adiposity 08/12/20 22 documented as of this encounter (statuses as of 06/26/2023) [facility] History of Past illness Narrative* Problem Noted Date Diagnosed Date Resolved Date Excess skin of abdomen 05/01/201408/12 induced hypertension 08/12/2022 Excess skin of arm 2 Localized adiposity 08/12/20 22 documented as of this encounter (statuses as of 06/27/2023) [facility] History of Past illness Narrative* Problem Noted Date Diagnosed Date Resolved Date Excess skin of abdomen 05/01/201408/12 induced hypertension 08/12/2022 Excess skin of arm 2 Localized adiposity 08/12/20 22 documented as of this encounter (statuses as of 07/02/2023) [facility]2014 History of Past illness Narrative* Problem Noted Date Diagnosed Date Resolved Date Excess skin of abdomen 05/01/201408/12 induced hypertension 08/12/2022 Excess skin of arm 2 Localized adiposity 08/12/20 22 documented as of this encounter (statuses as of 07/04/2023) [facility]2014 History of Past illness Narrative* Problem Noted Date Diagnosed Date Resolved Date Excess skin of abdomen 05/01/201408/12 induced hypertension 08/12/2022 Excess skin of arm 2 Localized adiposity 08/12/20 22 documented as of this encounter (statuses as of 07/08/2023) [facility]2014 History of Past illness Narrative* Problem Noted Date Diagnosed Date Resolved Date Excess skin of abdomen 05/01/201408/12 induced hypertension 08/12/2022 Excess skin of arm 2 Localized adiposity 08/12/20 22 documented as of this encounter (statuses as of 07/13/2023) [facility] History of Past illness Narrative* Problem Noted Date Diagnosed Date Resolved Date Excess skin of abdomen 05/01/201408/12 induced hypertension 08/12/2022 Excess skin of arm 2 Localized adiposity 08/12/20 22 documented as of this encounter (statuses as of 07/13/2023) [facility] History of Past illness Narrative* Problem Noted Date Diagnosed Date Resolved Date Excess skin of abdomen 05/01/201408/12 induced hypertension 08/12/2022 Excess skin of arm 2 Localized adiposity 08/12/20 22 documented as of this encounter (statuses as of 07/14/2023) [facility] History of Past illness Narrative* Problem Noted Date Diagnosed Date Resolved Date Excess skin of abdomen 05/01/201408/12 induced hypertension 08/12/2022 Excess skin of arm 2 Localized adiposity 08/12/20 22 documented as of this encounter (statuses as of 07/18/2023) [facility] History of Past illness Narrative* Problem Noted Date Diagnosed Date Resolved Date Excess skin of abdomen 05/01/201408/12 induced hypertension 08/12/2022 Excess skin of arm 2 Localized adiposity 08/12/20 22 documented as of this encounter (statuses as of 07/21/2023) [facility] History of Past illness Narrative* Problem Noted Date Diagnosed Date Resolved Date Excess skin of abdomen 05/01/201408/12 induced hypertension 08/12/2022 Excess skin of arm 2 Localized adiposity 08/12/20 22 documented as of this encounter (statuses as of 07/21/2023) [facility] History of Past illness Narrative* Problem Noted Date Diagnosed Date Resolved Date Excess skin of abdomen 05/01/201408/12 induced hypertension 08/12/2022 Excess skin of arm 2 Localized adiposity 08/12/20 22 documented as of this encounter (statuses as of 07/22/2023) [facility] History of Past illness Narrative* Problem Noted Date Diagnosed Date Resolved Date Excess skin of abdomen 05/01/201408/12 induced hypertension 08/12/2022 Excess skin of arm 2 Localized adiposity 08/12/20 22 documented as of this encounter (statuses as of 07/28/2023) [facility] History of Past illness Narrative* Problem Noted Date Diagnosed Date Resolved Date Excess skin of abdomen 05/01/201408/12 induced hypertension 08/12/2022 Excess skin of arm 2 Localized adiposity 08/12/20 22 documented as of this encounter (statuses as of 07/28/2023) [facility] History of Past illness Narrative* Problem Noted Date Diagnosed Date Resolved Date Excess skin of abdomen 05/01/201408/12 induced hypertension 08/12/2022 Excess skin of arm 2 Localized adiposity 08/12/20 22 documented as of this encounter (statuses as of 07/28/2023) [facility] History of Past illness Narrative* Problem Noted Date Diagnosed Date Resolved Date Excess skin of abdomen 05/01/201408/12 induced hypertension 08/12/2022 Excess skin of arm 2 Localized adiposity 08/12/20 22 documented as of this encounter (statuses as of 07/29/2023) [facility] History of Past illness Narrative* Problem Noted Date Diagnosed Date Resolved Date Excess skin of abdomen 05/01/201408/12 induced hypertension 08/12/2022 Excess skin of arm 2 Localized adiposity 08/12/20 22 documented as of this encounter (statuses as of 07/29/2023) [facility] History of Past illness Narrative* Problem Noted Date Diagnosed Date Resolved Date Excess skin of abdomen 05/01/201408/12 induced hypertension 08/12/2022 Excess skin of arm 2 Localized adiposity 08/12/20 22 documented as of this encounter (statuses as of 07/30/2023) [facility] History of Past illness Narrative* Problem Noted Date Diagnosed Date Resolved Date Excess skin of abdomen 05/01/201408/12 induced hypertension 08/12/2022 Excess skin of arm 2 Localized adiposity 08/12/20 22 documented as of this encounter (statuses as of 07/31/2023) [facility] History of Past illness Narrative* Problem Noted Date Diagnosed Date Resolved Date Excess skin of abdomen 05/01/201408/12 induced hypertension 08/12/2022 Excess skin of arm 2 Localized adiposity 08/12/20 22 documented as of this encounter (statuses as of 08/04/2023) [facility] History of Past illness Narrative* Problem Noted Date Diagnosed Date Resolved Date Excess skin of abdomen 05/01/201408/12 induced hypertension 08/12/2022 Excess skin of arm 2 Localized adiposity 08/12/20 22 documented as of this encounter (statuses as of 08/04/2023) [facility] History of Past illness Narrative* Problem Noted Date Diagnosed Date Resolved Date Excess skin of abdomen 05/01/201408/12 induced hypertension 08/12/2022 Excess skin of arm 2 Localized adiposity 08/12/20 22 documented as of this encounter (statuses as of 08/05/2023) [facility] History of Past illness Narrative* Problem Noted Date Diagnosed Date Resolved Date Excess skin of abdomen 05/01/201408/12 induced hypertension 08/12/2022 Excess skin of arm 2 Localized adiposity 08/12/20 22 documented as of this encounter (statuses as of 08/05/2023) [facility] History of Past illness Narrative* Problem Noted Date Diagnosed Date Resolved Date Excess skin of abdomen 05/01/201408/12 induced hypertension 08/12/2022 Excess skin of arm 2 Localized adiposity 08/12/20 22 documented as of this encounter (statuses as of 08/05/2023) [facility] History of Past illness Narrative* Problem Noted Date Diagnosed Date Resolved Date Excess skin of abdomen 05/01/201408/12 induced hypertension 08/12/2022 Excess skin of arm 2 Localized adiposity 08/12/20 22 documented as of this encounter (statuses as of 08/05/2023) [facility] History of Past illness Narrative* Problem Noted Date Diagnosed Date Resolved Date Excess skin of abdomen 05/01/201408/12 induced hypertension 08/12/2022 Excess skin of arm 2 Localized adiposity 08/12/20 22 documented as of this encounter (statuses as of 08/19/2023) [facility] History of Past illness Narrative* Problem Noted Date Diagnosed Date Resolved Date Excess skin of abdomen 05/01/201408/12 induced hypertension 08/12/2022 Excess skin of arm 2 Localized adiposity 08/12/20 22 documented as of this encounter (statuses as of 08/24/2023) [facility] History of Past illness Narrative* Problem Noted Date Diagnosed Date Resolved Date Excess skin of abdomen 05/01/201408/12 induced hypertension 08/12/2022 Excess skin of arm 2 Localized adiposity 08/12/20 22 documented as of this encounter (statuses as of 08/27/2023) [facility] History of Past illness Narrative* Problem Noted Date Diagnosed Date Resolved Date Excess skin of abdomen 05/01/201408/12 induced hypertension 08/12/2022 Excess skin of arm 2 Localized adiposity 08/12/20 22 documented as of this encounter (statuses as of 08/27/2023) [facility] History of Past illness Narrative* Problem Noted Date Diagnosed Date Resolved Date Excess skin of abdomen 05/01/201408/12 induced hypertension 08/12/2022 Excess skin of arm 2 Localized adiposity 08/12/20 22 documented as of this encounter (statuses as of 08/28/2023) [facility] History of Past illness Narrative* Problem Noted Date Diagnosed Date Resolved Date Excess skin of abdomen 05/01/201408/12 induced hypertension 08/12/2022 Excess skin of arm 2 Localized adiposity 08/12/20 22 documented as of this encounter (statuses as of 08/28/2023) [facility] History of Past illness Narrative* Problem Noted Date Diagnosed Date Resolved Date Excess skin of abdomen 05/01/201408/12 induced hypertension 08/12/2022 Excess skin of arm 2 Localized adiposity 08/12/20 22 documented as of this encounter (statuses as of 10/16/2023) [facility] History of Past illness Narrative* Problem Noted Date Diagnosed Date Resolved Date Excess skin of abdomen 05/01/201408/12 induced hypertension 08/12/2022 Excess skin of arm 2 Localized adiposity 08/12/20 22 documented as of this encounter (statuses as of 10/20/2023) [facility] History of Past illness Narrative* Problem Noted Date Diagnosed Date Resolved Date Excess skin of abdomen 05/01/201408/12 induced hypertension 08/12/2022 Excess skin of arm 2 Localized adiposity 08/12/20 22 documented as of this encounter (statuses as of 10/22/2023) [facility] History of Past illness Narrative* Problem Noted Date Diagnosed Date Resolved Date Excess skin of abdomen 05/01/201408/12 induced hypertension 08/12/2022 Excess skin of arm 2 Localized adiposity 08/12/20 22 documented as of this encounter (statuses as of 10/28/2023) [facility] History of Past illness Narrative* Problem Noted Date Diagnosed Date Resolved Date Excess skin of abdomen 05/01/201408/12 induced hypertension 08/12/2022 Excess skin of arm 2 Localized adiposity 08/12/20 22 documented as of this encounter (statuses as of 10/28/2023) [facility] [facility] History of Past illness Narrative* Problem Noted Date Diagnosed Date Resolved Date Excess skin of abdomen 05/01/201408/12 induced hypertension 08/12/2022 Excess skin of arm 2 Localized adiposity 08/12/20 22 documented as of this encounter (statuses as of 10/28/2023) [facility]08-18[facility] History of Past illness Narrative* Problem Noted Date Diagnosed Date Resolved Date Excess skin of abdomen 05/01/201408/12 induced hypertension 08/12/2022 Excess skin of arm 2 Localized adiposity 08/12/20 22 documented as of this encounter (statuses as of 11/03/2023) [facility] History of Past illness Narrative* Problem Noted Date Diagnosed Date Resolved Date Excess skin of abdomen 05/01/201408/12 induced hypertension 08/12/2022 Excess skin of arm 2 Localized adiposity 08/12/20 22 documented as of this encounter (statuses as of 11/03/2023) [facility] History of Past illness Narrative* Problem Noted Date Diagnosed Date Resolved Date Excess skin of abdomen 05/01/201408/12 induced hypertension 08/12/2022 Excess skin of arm 2 Localized adiposity 08/12/20 22 documented as of this encounter (statuses as of 11/04/2023) [facility] History of Past illness Narrative* Problem Noted Date Diagnosed Date Resolved Date Excess skin of abdomen 05/01/201408/12 induced hypertension 08/12/2022 Excess skin of arm 2 Localized adiposity 08/12/20 22 documented as of this encounter (statuses as of 11/05/2023) [facility] History of Past illness Narrative* Problem Noted Date Diagnosed Date Resolved Date Excess skin of abdomen 05/01/201408/12 induced hypertension 08/12/2022 Excess skin of arm 2 Localized adiposity 08/12/20 22 documented as of this encounter (statuses as of 11/06/2023) [place] [address]-18-2014 History of Past illness Narrative* Problem Noted Date Diagnosed Date Resolved Date Excess skin of abdomen 05/01/201408/12 induced hypertension 08/12/2022 Excess skin of arm 2 Localized adiposity 08/12/20 documented as of this encounter (statuses as of 11/11/2023) [facility] History of Past illness Narrative* Problem Noted Date Diagnosed Date Resolved Date Excess skin of abdomen 05/01/201408/12 induced hypertension 08/12/2022 Excess skin of arm 2 Localized adiposity 08/12/20 documented as of this encounter (statuses as of 11/16/2023) [facility]02-14-2012 History of Present illness Narrative* Type of Surgery: lap sleeve gastrectomy, surgery Date: 10/28/2011. * Weight:. * Initial weight: 260 lbs. * Last visit weight: 267 lbs. * Danielson weight 149 lbs. * Target body weight 196 lbs. * Severity of obesity is Class 2 which is a BMI of 35-39.9. * Food: * Fluid intake: oz. * Symptoms: The patient reports loss of appetite, hunger, nausea, vomiting, food intolerance everything at this point , diarrhea, dumping syndrome and abdominal pain, but no constipation. * Supplements:. Vitamin D. * Comorbidities: anxiety, back pain and esophageal reflux. * GERD * Patient has reflux. * 46 year old female presenting virtually today for evaluation of nausea and vomiting. At last evaluation in May, it was determined that surgical intervention would not help this patient's symptoms, and that she would need medical management with eventual conversion from sleeve to bypass. Patient has met all insurance requirements for surgery and is scheduled for 04/02/22. Patient feels her medical issues are worsening and she needs surgery in an expedited fashion. Here today to discuss this. * Patient is s/p sleeve gastrectomy with Dr. Parker 10/28/2011. Patient's highest weight prior to surgery was 335, lowest weight was 195. Patient's current weight is 260 with a BMI of approximately 40. * Patient states she was dropping weight out of nowhere. Of note, patient has gained weight since herinitial visit with Dr. Bose in May. She states she is only able to keep maybe 1 meal per daydown, all other meals she either vomits back up or has uncontrollable diarrhea. Patient saw her PCPwho worked her up to find the cause. Ruled out adrenal issues. Noted to have a nodule on her thyroid, is nowon Synthroid for this. Patient then underwent Endoscopy with Dr. Brock 05/16/21. Patient was recommended to be admitted to the hospital, she refused admission at that time. EGD uploaded to [facility]. * Currently taking: Omeprazole 40mg BID, Reglan 10mg before each meal, and Phenergan 25mg Q6h PRN * Esophagus: Bile reflux was noted upon entering the esophagus. There was no structure or varices. The distal esophagus showed some esophagitis and eschar noted at the EG junction. * Stomach: Fundus and Body were normal, post gastric sleeve procedure. Some superficial ulcers and erosions were noted in the antral area. * Duodenum: a mild duodenitis was noted [id number] Work Phone: 1(706) 726-434702-14-2012 History of Present illness Narrative* Type of Surgery: lap sleeve gastrectomy, surgery Date: 10/28/2011. * Weight:. * Initial weight: 260 lbs. * Last visit weight: 267 lbs. * Danielson weight 149 lbs. * Target body weight 196 lbs. * Severity of obesity is Class 2 which is a BMI of 35-39.9. * The following clearances were received - Cardiac: cleared, Pulmonary: cleared and Psych: cleared. * Sleep study results: mild apnea and compliant with CPAP. * EGD findings: Z line @37cm. No evidence of bleeding erythema or inflammatory changes, no ulcers. * Lab results: Hgb: 13.1, Iron: 120, B12: 1800, Vitamin D: 21.3, Hbg A1C: 5.7 and B1: 153. * Lifestyle: tox screen negative. * Comorbidities: anxiety, back pain and esophageal reflux. * 46 year old female presenting today for final pre-op visit for revisional bariatric surgery, sleevegastrectomy converted to gastric bypass with possible hiatal hernia repair. Patient has approximateBMI of 40 with related comorbidities of morbid obesity, GERD, and mild COLE. Patient has met insurance requirements and has been medically optimized for surgery. * Patient was initially scheduled for surgery in March, but because of poor PO intake and worsening ofsymptoms, patient's case was moved to 12/23/21. * Patient is s/p sleeve gastrectomy with Dr. Parker 10/28/2011. Patient's highest weight prior to surgery was 335, lowest weight was 195. Patient's current weight is 260 with a BMI of approximately 40. JP-Btv[facility]u-Enanl [id number] Work Phone: 1([phone] 850-150702-14-2012 History of Present illness Narrative* Type of Surgery: lap sleeve gastrectomy, surgery Date: 10/28/2011. * Weight:. * Initial weight: 260 lbs. * Last visit weight: 267 lbs. * Danielson weight 149 lbs. * Target body weight 196 lbs. * Severity of obesity is Class 2 which is a BMI of 35-39.9. * The following clearances were received - Cardiac: cleared, Pulmonary: cleared and Psych: cleared. * Sleep study results: mild apnea and compliant with CPAP. * EGD findings: Z line @37cm. No evidence of bleeding erythema or inflammatory changes, no ulcers. * Lab results: Hgb: 13.1, Iron: 120, B12: 1800, Vitamin D: 21.3, Hbg A1C: 5.7 and B1: 153. * Lifestyle: tox screen negative. * Comorbidities: anxiety, back pain and esophageal reflux. * 46 year old female presenting today for final pre-op visit for revisional bariatric surgery, sleevegastrectomy converted to gastric bypass with possible hiatal hernia repair. Patient has approximateBMI of 40 with related comorbidities of morbid obesity, GERD, and mild COLE. Patient has met insurance requirements and has been medically optimized for surgery. * Patient was initially scheduled for surgery in March, but because of poor PO intake and worsening ofsymptoms, patient's case was moved to 12/23/21. * Patient is s/p sleeve gastrectomy with Dr. Parker 10/28/2011. Patient's highest weight prior to surgery was 335, lowest weight was 195. Patient's current weight is 260 with a BMI of approximately 40. LX-Tfjtiuc[facility]Zhtin [id number] [address] Work Phone: 1([phone] 650-100411-01-2011 History of Present illness Narrative* I am seeing this 45-year-old woman with morbid obesity at the request of Dr. Bose for preoperativecardiac evaluation prior to planned bariatric surgery. * Almost 10 years ago, she underwent gastric sleeve surgery for obesity. She initially lost weight, but regained about 60-70 lbs in the past three years. She is preop prior to gastric bypass surgery. * She exercises on her bike outdoors for at least an hour a day. In the summer she walks 90 minutes, going 2-3 miles. She does the elliptical or treadmill and resistance exercises she can climb up seven flights of stairs without cardiac complaints. * She doesn't consume alcohol or caffeine. 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 [id number]-Pvpqlwpwpx-Rnvgsyey [facility] [address] Work Phone: chief complaint Narrative - ReportedMELINA DÍAZ is being seen for a cardiovascular evaluation of pre-operative clearance. LA-Sjrameqndn-Mrnvwebj [facility] [address] Work Phone: chief complaint Narrative - Reported* An interactive audio and video telecommunication system which permits real time communications between the patient (at the originating site) and provider (at the distant site) was utilized to providethis telehealth service. * post-op weight loss surgery (Gastric sleeve conversion to RNYGB) nutrition follow-up session [id number]-Puxpnoj [id number] [facility] Work Phone: consult note Author Jarred Begum [facility] April 29, 2022 2:38pm Note Date/Time April 29, 2022 2: 27pm [facility] [address] [place] [address] Gastroenterology Consult Note Signed Patient: Melina Díaz MR#: [id number] : 1975 Acct:[id number] Age/Sex: 46 / F Adm Date: 2 Loc: Room: [address] [place] [address] Type: ADM INOo Attending Dr: Ashwin Macias MD Copies to: MD Yg Velázquez MD Rafik Massouh, MD~ HPI Data of Consult Date of Consultation: 04/29/22 Requesting Physician: Ashwin Macias MD Consult Narrative History of present illness: Ms. Díaz is a 46 year old female admitted with intractable n/v and abdominal pain. Whom I am consulted for nausea, vomiting and abdominal pain. The patienthas a complicated GI history. She had a gastric sleeve about 10 years ago. In December of this past year due to chronic ischemic areas and plateau in her weight loss she had this converted to a Gelacio-en-Y at [facility], with hiatal hernia repair. Her initial postoperative course was uncomplicated and postoperative imaging without evidence of leaks. She quickly developed chronic abdominal pain with nausea and has had multiple admissions with her bariatric surgery team for this. Her post bariatric diet has only ever advanced to soft's, mashed potatoes consistency. She is not been able to advance diet past this due to pain, nausea and vomiting. Most recently underwent a pyloric dilation empirically with steroid injection 4 days ago, by Dr. Terry at . ThatEGD report shows no anastomotic ulcer and normal appearing mucosa of the Gelacio/efferent limb. Her surgeon recommended she needs to establish care with GI.She is prescribed multiple anti-emtics by her bariatric team. cc:: CC: Ashwin Macias MD Review of Systems Constitutional Constitutional: Denies poor appetite and Denies weight loss Eyes Eyes: Denies change in vision and Denies eye discharge ENT Ears, Nose, Mouth, and Throat: Denies nasal discharge, Denies sore throat and Denies vertigo Cardiovascular Cardiovascular: Denies chest pain and Denies dyspnea on exertion Respiratory Respiratory: Denies chest congestion, Denies cough and Denies dyspnea on exertion Gastrointestinal Gastrointestinal: Reports as per HPI Musculoskeletal Musculoskeletal: Denies arthralgias, Denies muscle weakness and Denies numbness Integumentary/Breasts Skin/Breast: Denies change in pigmentation and Denies rash Neurologic Neurologic: Denies numbness and Denies vertigo Psychiatric Psychiatric: Denies anxiety and Denies depression Hematologic/Lymphatic Hematologic/Lymphatic: Denies easy bruising and Denies lymphadenopathy PMFSH Vaccinated for COVID-19?: Yes Medical History (Updated 04/29/22 @ 14:36 by Jarred Begum MD) Thyroid nodule Surgical History (Updated 04/29/22 @ 01:05 by Leslie Shine RN) Gastric bypass status for obesity H/O gastric sleeve History of section History of hysterectomy Hx of cholecystectomy Social History Smoking Status: Never smoker Substance Use Type: None Meds Medications and Allergies Allergies adhesive tape Allergy (Verified 08/09/21 08:07) Unknown Reaction aspartame Allergy (Verified 04/29/22 01:04) Headache gabapentin Allergy (Verified 04/29/22 01:04) Swelling of Lip/Tongue/Throat ketorolac [From Toradol] Allergy (Verified 04/29/22 01:04) Edema tramadol Allergy (Verified 04/29/22 01:04) Hives Home Medications amoxicillin 875 mg-potassium clavulanate 125 mg tablet 1 tab PO Q12H 04/29/22 [History Confirmed 04/29/22] calcium citrate 250 mg PO BID 04/29/22 [History Confirmed 04/29/22] cyanocobalamin (vitamin B-12) 1,000 mcg/mL injection solution (Dodex) 1,000 mcg IM QWEEK 04/29/22 [History Confirmed 04/29/22] dextroamphetamine-amphetamine 20 mg tablet 20 mg PO BID 04/29/22 [History Confirmed 04/29/22] diphenhydramine HCl 25 mg capsule (Benadryl) 25 mg PO TID PRN HIVES 04/29/22 [History Confirmed 04/29/22] eletriptan 40 mg tablet (Relpax) 40 mg PO Q2H PRN Headache 04/29/22 [History Confirmed 04/29/22] levothyroxine 50 mcg tablet (Synthroid) 50 mcg PO DAILY 04/29/22 [History Confirmed 04/29/22] methocarbamol 500 mg tablet 500 mg PO Q8HR 04/29/22 [History Confirmed 04/29/22] omeprazole 40 mg capsule,delayed release 40 mg PO BID 04/29/22 [History Confirmed 04/29/22] ondansetron 8 mg disintegrating tablet 8 mg translingual Q8HR 04/29/22 [History Confirmed 04/29/22] oxycodone 5 mg/5 mL oral solution 5 mg PO Q6HR 04/29/22 [History Confirmed 04/29/22] promethazine 25 mg tablet 25 mg PO Q8HR 04/29/22 [History Confirmed 04/29/22] sucralfate 100 mg/mL oral suspension (Carafate) 10 ml PO QID 04/29/22 [History Confirmed 04/29/22] Exam Physical Exam Vital Signs: Temp Pulse Resp BP Pulse Ox O2 Del Method 97.6 F 75 20 142/71 H 98 Room Air 04/29/22 12:00 04/29/22 13:11 04/29/22 13:11 04/29/22 13:11 04/29/22 13:11 04/29/22 13:11 Const General: no acute distress and well developed HEENT Head: normocephalic and atraumatic Mouth: moist mucous membranes Eyes Sclera: sclerae normal (no scleral icterus) EOM: EOM intact bilaterally Neck Other: trachea midline Resp Effort & Inspection: normal respiratory effort and able to speak in complete sentences GI Inspection: normal to inspection and non-distended Palpation: soft and nontender Skin General: turgor normal and no jaundice Neuro General: patient alert and patient oriented x3 Psych Appearance: grossly normal Mental Status: mental status grossly normal Results Labs Labs: Laboratory Results - last 24 hr 04/29/22 04/29/22 04/29/22 01:37 01:42 01:42 Corrected WBC 7.0 Uncorrected WBC Count 7.0 RBC 4.29 Hgb 12.4 Hct 37.4 MCV 87.1 MCH 28.9 MCHC 33.2 RDW 16.1 H Plt Count 268 MPV 8.3 Neut % (Auto) 62.7 Lymph % (Auto) 24.4 [place] % (Auto) 9.3 Eos % (Auto) 2.6 Baso % (Auto) 1.0 Neut # (Auto) 4.4 Lymph # (Auto) 1.7 [place] # (Auto) 0.7 Eos # (Auto) 0.2 Baso # (Auto) 0.1 Nucleated RBC % (auto) 0.1 PHA Creatinine Clear 140.54 Sodium 141 Potassium 3.3 L Chloride 104 Carbon Dioxide 28.1 BUN 4 L Creatinine 0.61 Est GFR ( Amer) > 60 Est GFR (Non-Af Amer) > 60 Glucose 103 H Calcium 8.9 Total Bilirubin 0.5 AST 14 ALT 12 Alkaline Phosphatase 67 Total Protein 5.9 L Albumin 3.5 Globulin 2.4 Albumin/Globulin Ratio 1.5 Lipase 23.0 Urine Color Urine Appearance Urine pH Ur Specific [place] Urine Protein Urine Glucose (UA) Urine Ketones Urine Occult Blood Urine Nitrite Urine Bilirubin Urine Urobilinogen Ur Leukocyte Esterase Urine RBC Urine WBC Ur Squamous Epith Cells Urine Bacteria Hyaline Casts Urine HCG, Qual Urine Opiates Screen Ur Barbiturates Screen Ur Phencyclidine Scrn Ur Amphetamines Screen U Benzodiazepines Scrn Urine Cocaine Screen U Marijuana (THC) Screen SARS Antigen (LFIA) Negative SARS-CoV-2 Rap RNA(RT-PCR) 04/29/22 04/29/22 04/29/22 07:30 07:30 10:40 Corrected WBC Uncorrected WBC Count RBC Hgb Hct MCV MCH MCHC RDW Plt Count MPV Neut % (Auto) Lymph % (Auto) [place] % (Auto) Eos % (Auto) Baso % (Auto) Neut # (Auto) Lymph # (Auto) [place] # (Auto) Eos # (Auto) Baso # (Auto) Nucleated RBC % (auto) PHA Creatinine Clear Sodium Potassium Chloride Carbon Dioxide BUN Creatinine Est GFR ( Amer) Est GFR (Non-Af Amer) Glucose Calcium Total Bilirubin AST ALT Alkaline Phosphatase Total Protein Albumin Globulin Albumin/Globulin Ratio Lipase Urine Color Yellow Urine Appearance Clear Urine pH 6.0 Ur Specific [place] > 1.050 H Urine Protein Negative Urine Glucose (UA) Normal Urine Ketones Negative Urine Occult Blood Negative Urine Nitrite Negative Urine Bilirubin Negative Urine Urobilinogen Normal Ur Leukocyte Esterase 2+ H Urine RBC None seen Urine WBC 5-9 H Ur Squamous Epith Cells 5-9 H Urine Bacteria Rare H Hyaline Casts 0-8 Urine HCG, Qual Negative Urine Opiates Screen Positive H Ur Barbiturates Screen Negative Ur Phencyclidine Scrn Negative Ur Amphetamines Screen Negative U Benzodiazepines Scrn Positive H Urine Cocaine Screen Negative U Marijuana (THC) Screen Negative SARS Antigen (LFIA) SARS-CoV-2 Rap RNA(RT-PCR) Negative A&P - Gastroenterology Assessment/Plan (1) Intractable abdominal pain: Code(s): R10.9 - Unspecified abdominal pain Status: Acute (2) Intractable nausea and vomiting: Code(s): R11.2 - Nausea with vomiting, unspecified Status: Acute (3) Complications of gastric bypass surgery: Code(s): K91.89 - Other postprocedural complications and disorders of digestive system; Y83.2 - Surgical operation with anastomosis, bypass or graft as the cause of abnormal reaction of the patient, or of later complication, without mention of misadventure at the time of the procedure Status: Acute Plan She is having common obstructive symptoms since having her gastric sleeve converted to Gelacio-en-Y gastric bypass. Unfortunately this is common with these type of conversion bariatric surgeries. She needs symptomatic management and ultimately needs to follow-up with her bariatric team at [facility], she does not need gastroenterology follow-up here for this as this is a known and expected complication of her surgeries. -symptomatic management per primary team Thank you for this consult. Little further to add from a GI standpoint. I willsign off at this time. Documented By: Jarred Begum MD 04/29/22 1418 Signed By: <Electronically signed by Jarred Begum MD> 04/29/22 1438 [facility] Work Phone: Consult note Author Jarred Begum [facility] June 04, 2023 11:38am Note Date/Time June 04, 2023 11:39am [facility] [address] [place] [address] Gastroenterology Consult Note Signed Patient: Meilna Díaz MR#: [id number] : 1975 Acct:[id number] Age/Sex: 47 / F Adm Date: 3 Loc: Room: [address] [place] [address] Type: ADM IN Attending Dr: Tavares Prince MD Copies to: MD Jarred To MD Daniel Berry II, MD~ HPI Data of Consult Date of Consultation: 06/04/23 Requesting Physician: Tavares Prince MD Consult Narrative History of present illness: Ms. Díaz is a 47 year old female who is admitted with abdominal pain. The patient is known to me from prior admissions. She has an extremely complicated GI history. Briefly she had a remote history of gastric sleeve, and had suffered issues with reflux and abdominal complaints. Ultimately this was converted to a Gelacio-en-Y gastric bypass at [facility]. Her post surgical course was extremely complicated with the developing of anastomotic strictures, ischemic bowel and esophageal strictures. This was initially managed endoscopically by her bariatric surgery team, however she had a point where she felt like they were unable to further manage her complicated care. She transferred her care to [facility] and underwent a second revision last year of her bypass. Her bypass history course is also complicated by cholecystitis requiring cholecystectomy, retained stones which required EUS directed transgastric ERCP (EDGE). Since following with [facility] she has developed multiple bouts of SIBO requiring treatment, concern for pancreaticinsufficiency and over the last several weeks worsening and severe abdominal pain related to food intake. Her [facility] advance to bariatric endoscopy team was planning for EUS for further evaluation of the pancreas, hepatobiliary tree and then possible dynamic ERCP procedure if intervention is required. cc:: CC: Tavares Prince MD Review of Systems Constitutional Constitutional: Denies poor appetite and Denies weight loss Eyes Eyes: Denies change in vision and Denies eye discharge ENT Ears, Nose, Mouth, and Throat: Denies nasal discharge, Denies sore throat and Denies vertigo Cardiovascular Cardiovascular: Denies chest pain and Denies dyspnea on exertion Respiratory Respiratory: Denies chest congestion, Denies cough and Denies dyspnea on exertion Gastrointestinal Gastrointestinal: Reports as per HPI Musculoskeletal Musculoskeletal: Denies arthralgias, Denies muscle weakness and Denies numbness Integumentary/Breasts Skin/Breast: Denies change in pigmentation and Denies rash Neurologic Neurologic: Denies numbness and Denies vertigo Psychiatric Psychiatric: Denies anxiety and Denies depression Hematologic/Lymphatic Hematologic/Lymphatic: Denies easy bruising and Denies lymphadenopathy [facility] Medical History (Updated 06/03/23 @ 14:38 by Skip Soto DO) Thyroid nodule Surgical History Gastric bypass status for obesity H/O gastric sleeve History of section History of hysterectomy Hx of cholecystectomy Family History (Updated 06/03/23 @ 15:18 by Gilda Mendoza RN) Father Emphysema lung Social History Smoking Status: Never smoker Substance Use Type: None Meds Medications and Allergies Allergies adhesive tape Allergy (Verified 06/03/23 08:28) Unknown Reaction aspartame Allergy (Verified 06/03/23 08:28) Headache gabapentin Allergy (Verified 06/03/23 08:28) Swelling of Lip/Tongue/Throat ketorolac [From Toradol] Allergy (Verified 06/03/23 08:28) Edema tramadol Allergy (Verified 06/03/23 08:28) Hives Home Medications calcium citrate 250 mg PO BID 04/29/22 [History Confirmed 06/03/23] cyanocobalamin (vitamin B-12) 1,000 mcg/mL injection solution (Dodex) 1,000 mcg IM QWEEK 04/29/22 [History Confirmed 06/03/23] diphenhydramine HCl 25 mg capsule (Benadryl) 25 mg PO TID PRN HIVES 04/29/22 [History Confirmed 06/03/23] eletriptan 40 mg tablet (Relpax) 40 mg PO Q2H PRN Headache 04/29/22 [History Confirmed 06/03/23] levothyroxine 50 mcg tablet (Synthroid) 50 mcg PO DAILY 04/29/22 [History Confirmed 06/03/23] omeprazole 40 mg capsule,delayed release 40 mg PO BID 04/29/22 [History Confirmed 06/03/23] oxycodone 5 mg/5 mL oral solution 7.5 mg PO Q4-6H 04/29/22 [History Confirmed 06/03/23] promethazine 25 mg tablet 25 mg PO Q8HR 04/29/22 [History Confirmed 06/03/23] psyllium seed (sugar) oral powder (Metamucil [place] oral powder) 1 tbsp PO BID PRN constipation #575 grams 05/04/22 [Rx Confirmed 06/03/23] dextroamphetamine-amphetamine 15 mg tablet 15 mg PO BID 06/03/23 [History Confirmed 06/03/23] tizanidine 4 mg tablet 4 mg PO Q4H 06/03/23 [History Confirmed 06/03/23] Exam Physical Exam Vital Signs: Temp Pulse Resp BP Pulse Ox O2 Del Method 97.8 F 61 18 120/80 97 Room Air 06/04/23 08:00 06/04/23 08:00 06/04/23 08:00 06/04/23 08:00 06/04/23 08:00 06/04/23 08:00 Const General: no acute distress and well developed HEENT Head: normocephalic and atraumatic Mouth: moist mucous membranes Eyes Sclera: sclerae normal (no scleral icterus) EOM: EOM intact bilaterally Neck Other: trachea midline Resp Effort & Inspection: normal respiratory effort and able to speak in complete sentences GI Inspection: normal to inspection and non-distended Palpation: soft and nontender Skin General: turgor normal and no jaundice Neuro General: patient alert and patient oriented x3 Psych Appearance: grossly normal Mental Status: mental status grossly normal Results Labs Labs: Laboratory Results - last 24 hr 06/03/23 06/03/23 06/03/23 14:10 15:08 16:48 POC Glucose 72 Lactic Acid 0.8 Urine Color Yellow Urine Appearance Clear Urine pH 5.5 Ur Specific [place] > 1.050 H Urine Protein Negative Urine Glucose (UA) Normal Urine Ketones Negative Urine Occult Blood Negative Urine Nitrite Negative Urine Bilirubin Negative Urine Urobilinogen Normal Ur Leukocyte Esterase Negative C. difficile Tox B Gene 06/03/23 06/03/23 06/04/23 21:17 22:37 06:26 POC Glucose 89 100 Lactic Acid Urine Color Urine Appearance Urine pH Ur Specific [place] Urine Protein Urine Glucose (UA) Urine Ketones Urine Occult Blood Urine Nitrite Urine Bilirubin Urine Urobilinogen Ur Leukocyte Esterase C. difficile Tox B Gene Negative 06/04/23 11:17 POC Glucose 91 Lactic Acid Urine Color Urine Appearance Urine pH Ur Specific [place] Urine Protein Urine Glucose (UA) Urine Ketones Urine Occult Blood Urine Nitrite Urine Bilirubin Urine Urobilinogen Ur Leukocyte Esterase C. difficile Tox B Gene A&P - Gastroenterology Assessment/Plan (1) Abdominal pain: Code(s): R10.9 - Unspecified abdominal pain Status: Acute (2) Vomiting: Code(s): R11.10 - Vomiting, unspecified Status: Acute (3) Diarrhea: Code(s): R19.7 - Diarrhea, unspecified Status: Acute (4) Pyloric stenosis: Code(s): K31.1 - Adult hypertrophic pyloric stenosis Status: Acute (5) History of gastric bypass: Code(s): Z98.84 - Bariatric surgery status Status: Acute (6) Complications of gastric bypass surgery: Code(s): K91.89 - Other postprocedural complications and disorders of digestive system; Y83.2 - Surgical operation with anastomosis, bypass or graft as the cause of abnormal reaction of the patient, or of later complication, without mention of misadventure at the time of the procedure Status: Acute Plan Unfortunately with this patient's extremely complicated anatomy she is not appropriate for further work-up at a [facility]. I do agree with her advanced and bariatric teams at [facility] that the next most beneficial test would be an EUS for further evaluation of her pancreas and biliary tree. I agree with transfer to tertiary [facility] and no her anatomy well. Otherwise symptomatic care pending transfer. Thank you for this consult, little further to add from a GI standpoint. I will sign off at this time. Documented By: Jarred Begum MD 06/04/23 1134 Signed By: <Electronically signed by Jarred Begum MD> 06/04/23 1138 [facility] Work Phone: Discharge summary Author Ashwin Macias [facility] May 04, 2022 9:21am Note Date/Time May 04, 2022 9: 15am [facility] [address] [place] [address] Discharge Summary Signed Patient: Melina Díaz MR#: [id number] : 1975 Acct:[id number] Age/Sex: 46 / F Adm Date: 2 Loc: Room: [address] [place] [address]: Ashwin Macias MD Copies to: MD Ashwin Alberts MD~ Providers Date of Discharge: 05/04/22 Discharging Provider: Ashwin Macias Primary Care Provider: Yg James Consults: 04/29/22 09:27 Consult to Gastroenterology Routine 04/29/22 12:18 Consult to Dietitian Routine Discharge Diagnosis (1) Intractable abdominal pain: (2) Intractable nausea and vomiting: (3) Hypokalemia: (4) Hypomagnesemia: (5) DVT prophylaxis: (6) History of gastric bypass: (7) Pyloric stenosis: Final Diagnosis Final Discharge Diagnosis: As listed above Summary Hospital Course Hospital course: Mrs. Vega is a 46-year-old female with previous diagnosis of gastric sleeve followed by gastric bypass surgery. Patient also is known to have pyloric stenosis for which she had 2 EGDs over the last 3 weeks. The first time she hadpyloric dilatation done at . The second EGD done at a week after that which did not show any significant stenosis. Patient was sent home but continued to have intermittent nausea and vomiting as well as epigastric pain therefore she presented to [facility] and I accepted her. Patient was made initially n.p.o. and started on IV fluid, pain medication and antiemetics. Patient was seen by GI service. CAT scan did not show any significant abnormalities other than probable pancreatic edema suggestive of pancreatitis. Her amylase and lipase are normal. GI service did not recommend repeat EGD. Patient also was having diarrhea which had resolved within 48 hours I called her bariatric surgeon Dr. Bose and spoke to him personally on the phone. I explained her presentation as well as imaging and lab results. He did not feel that the patient had recurrent pyloric stenosis. He did not recommend urgent EGD. He did not recommend transfer to . He recommended to keep patient on multiple small meals daily, discharge home andfollow-up with him in a week or 2. He is considering insertion of a feeding tube. He is considering revision of bypass. Patient continues to be symptomatic up until the last 24 hours when she became less symptomatic. She continues to have nausea and intermittent vomiting but not to a degree that she had when she came in. Her abdominal pain has subsided. Patient has a chronic epigastric pain. X-ray showed constipation. Patient has been taking Metamucil. I will add Senokot. Patient will be discharged home. She has an appointment follow-up with Dr. Bose Patient has GI complex medical issues as listed above, mainly managed at by Dr. Bose and his team. Patient had felt noticeably better over the last 24 to 36 hours. I do not have any clear or strong clinical justification to extend inpatient hospitalization. Patient however will require close and the frequent monitoring as well as additional work-up, investigation and therapeutic intervention that could take place from this point on post discharge. Patient will need to follow-up with Dr. Conner. Time Spent with Patient Time spent providing/coordinating discharge services (# min): 45 Exam Physical Exam Vital Signs: Temp Pulse Resp BP Pulse Ox O2 Del Method 98.0 F 71 18 145/80 H 97 Room Air 05/04/22 08:03 05/04/22 08:03 05/04/22 08:03 05/04/22 08:03 05/04/22 08:03 05/04/22 08:03 Narrative: [pt is awake and alert. oriented to place, time and person HEENT: [place] conjunctiva and NL buccal mucosa Neck: Supple, no tenderness Endocrine: No Thyromegaly. Vascular: No JVD or carotid bruit. Lymphatic: No cervical lymphadenopathy. Chest: CTA no DTP. Heart RRR, no extra sound or murmur. Abd: Soft, mild tenderness in the epigastric and right upper quadrant. No guarding, no rebound. No rigidity LE: No cyanosis or clubbing, no varices or edema. Neuro: A A O. Nl speech, comprehension and attention. Nl and symetrical motor and tone examination through out. []] Discharge Plan Discharge Plan Patient Disposition: Home Activity: No Activity Restriction Additional Instructions: I may not have addressed or treated all of your medical illnesses or the abnormal blood work or imaging studies during this hospitalization. Please ask your primary care provider to obtain [facility] records entirely to follow up on all of the abnormal physical, laboratory, and imaging findings that I have not addressed. Please follow-up with your surgeon Dr. Bose. Please return back to the emergency room or seek medical attention if your symptoms worsen or return. Discharging you from [facility] does not mean that your medical care ends here and now. You may still need additional monitoring, work up, investigation, and treatment plan to be handled from this point on by out patient providers including your primary care provider and specialists. For any medication question, please contact your retail pharmacist or your primary care provider. Thank you. Stand Alone Forms: Work/School Release Form Prescriptions: New Ensure Active High Protein Liquid 1 ea PO BID Qty: 9936 2RF Rx Instructions: Take 1 Bottle twice a day Dispense 2 dozen bottles Metamucil [place] Powder 1 tbsp PO BID PRN (Reason: constipation) Qty: 575 2RF sennosides [Senokot] 8.6 mg tablet 8.6 mg PO BID Qty: 60 2RF Continued methocarbamol 500 mg tablet 500 mg PO Q8HR Label Comments: take 1 tablet by mouth every 8 hours sucralfate [Carafate] 100 mg/mL Suspension 10 ml PO QID Rx Instructions: swish in mouth and swallow; use after food/drink oxycodone 5 mg/5 mL solution 5 mg PO Q6HR Label Comments: take 5 milliliters by mouth every 6 hours if needed for severe pain omeprazole 40 mg capsule,delayed release(DR/EC) 40 mg PO BID Label Comments: OPEN 1 CAPSULE AND SPRINKLE IN APPLESAUCE OR PUDDING take by mouth every morning before breakfast cyanocobalamin (vitamin B-12) [Dodex] 1,000 mcg/mL solution 1,000 mcg IM QWEEK Label Comments: inject 1 milliliter ( 1000 MCG ) intramuscularly TWICE A WEEK dextroamphetamine-amphetamine 20 mg tablet 20 mg PO BID Label Comments: take 1 tablet by mouth twice a day levothyroxine [Synthroid] 50 mcg Tablet 50 mcg PO DAILY calcium citrate 250 mg calcium Tablet 250 mg PO BID eletriptan [Relpax] 40 mg Tablet 40 mg PO Q2H PRN (Reason: Headache) diphenhydramine HCl [Benadryl] 25 mg Capsule 25 mg PO TID MDD RASH PRN (Reason: HIVES) Changed ondansetron 8 mg tablet,disintegrating 8 mg translingual Q8HR PRN (Reason: nausea and vomiting) Qty: 1 0RF Label Comments: dissolve 1 tablet by mouth every 8 hours if needed for nausea and vomiting Held promethazine 25 mg tablet 25 mg PO Q8HR Hold Instructions: Resume on 05/19/22. Please do not take this medication while you are taking Zofran at the same time Label Comments: take 1 tablet by mouth every 8 hours if needed for nausea and vomiting Discontinued amoxicillin-pot clavulanate 875-125 mg Tablet 1 tab PO Q12H Follow Up: Brittany Bose MD [Referring] - Yg James MD [Primary Care Provider] - (Your doctor's office has requestedthat you call them on discharge to schedule a follow-up appointment. You shouldbe seen in the next 7-10 days.) Documented By: Ashwin Macias MD 05/04/22914 Signed By: <Electronically signed by Ashwin Macias MD> 05/04/22920 [facility] Work Phone: Evaluation note* Skin: Warm and dry, no lesions, no rashes; loose skinPsychological: Appropriate mood and behaviorMusculoskeletal: ROM intact, no joint swelling, normal strengthExtremities: normal extremities, no cyanosis edema, contusions or wounds, no clubbingNeurological: alert and oriented x3, intact senses, motor, response and reflexes, normal strengthHead/Neck: Neck supple, no apparent injury, thyroid without mass or tenderness, No JVD, trachea midline, no bruitsEyes: PERRL, EOMI, clear scleraENMT: mucousmembranes moist, no apparent injury, no lesions seenRespiratory/Thorax: Patent airways, CTAB, normal breath sounds with good chest expansion, thorax symmetricCardiovascular: Regular, rate and rhythm,no murmurs, 2+ equal pulses of the extremities, normal S 1and S 2Gastrointestinal: Nondistended, soft, no pain when pushing on abdomen with stethoscope but reports pain to very light touch when palpatedLymphatic: No significant lymphadenopathyConstitutional: Well developed, awake/alert/oriented x3,no distress, alert and cooperative [facility] Other Phone (unformatted): [phone] note* Diagnosis Onset Date Resolution Status Complications of gastric bypass surgery acute DVT prophylaxis acute Hypokalemia acute Hypomagnesemia acute Intractable abdominal pain a cute Intractable nausea and vomiting acute [facility] Work Phone: Evaluation note* Diagnosis Adverse effect of treatment, initial encounter- Primary Marginal ulcer Gastrojejunal ulcer, unspecified as acute or chronic, without mention of hemorrhage, perforation, or obstruction Chronic prescription opiate use [facility] Intractable abdominal pain- Primary Abdominal pain, unspecified site History of Gelacio-en-Y gastric bypass [facility]ric [facility] History of Gelacio-en-Y gastric bypass- Primary Bariatric surgery status Chronic prescription opiate use Anastomotic ulcer Gastrojejunal ulcer, unspecified as acute or chronic, without mention of hemorrhage, perforation, or obstruction Intercostal neuralgia Other nerve root and plexus disorders Neuralgia and neuritis Neuralgia, neuritis, and radiculitis, unspecified Generalized abdominal pain Abdominal pain, generalized Visceral hyperalgesia Other symptoms involving abdomen and pelvis History of Gelacio-en-Y gastric bypass Bariatric surgery status Intractable abdominal pain Abdominal pain, unspecified site Preoperative examination Preoperative examination, unspecified [facility] Diagnosis Intractable abdominal pain- Primary Abdominal pain, unspecified site History of Gelacio-en-Y gastric bypass Bariatric surgery status Intractable abdominal pain Abdominal pain, unspecified site Preoperative examination Preoperative examination, unspecified [facility] Diagnosis Jarred ulcer, chronic- Primary History of Gelacio-en-Y gastric bypass Bariatric surgery status Intractable abdominal pain Abdominal pain, unspecified site Preoperative examination Preoperative examination, unspecified [facility] Diagnosis Nausea and vomiting, unspecified vomiting type- Primary Intractable abdominal pain Abdominal pain, unspecified site History of Gelacio-en-Y gastric bypass Bariatric surgery status Intractable abdominal pain Abdominal pain, unspecified site Preoperative examination Preoperative examination, unspecified [facility] Diagnosis PICC (peripherally inserted central catheter) in place- Primary Fitting and adjustment of vascular catheter History of Gelacio-en-Y gastric bypass Bariatric surgery status Intractable abdominal pain Abdominal pain, unspecified site Preoperative examination Preoperative examination, unspecified [facility] Diagnosis History of Gelacio-en-Y gastric bypass- Primary Bariatric surgery status Intractable abdominal pain Abdominal pain, unspecified site Preoperative examination Preoperative examination, unspecified [facility] Diagnosis Hospital discharge follow-up- Primary Other follow-up examination [facility] Diagnosis 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- Primary [facility] Diagnosis Chronic pain syndrome- Primary Diarrhea due to malabsorption Personal history of other diseases of digestive system H/O gastric bypass Bariatric surgery status Generalized abdominal pain Abdominal pain, generalized Intercostal neuralgia Other nerve root and plexus disorders Encounter for therapeutic drug level monitoring Encounter for therapeutic drug monitoring [facility] Diagnosis Nausea and vomiting, unspecified vomiting type- Primary [facility] Diagnosis 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- Primary [facility]* Diagnosis Muscle spasm- Primary Spasm of muscle [facility] Diagnosis Hospital discharge follow-up Other follow-up examination [facility] Diagnosis PICC (peripherally inserted central catheter) in place- Primary Fitting and adjustment of vascular catheter Diarrhea, unspecified type [facility] Diagnosis Nausea and vomiting, unspecified vomiting type- Primary Intractable abdominal pain Abdominal pain, unspecified site PICC (peripherally inserted central catheter) in place Fitting and adjustment of vascular catheter Malnutrition of mild degree (HCC) Malnutrition of mild degree [facility] Diagnosis History of Gelacio-en-Y gastric bypass- Primary Bariatric surgery status Malnutrition of mild degree (HCC) Malnutrition of mild degree [facility] Diagnosis 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- Primary [facility] Diagnosis Gastric bypass status for obesity- Primary Bariatric surgery status documented in this encounter [facility] note* Diagnosis Malnutrition of mild degree (HCC) Malnutrition of mild degree History of Gelacio-en-Y gastric bypass Bariatric surgery status documented in this encounter [facility] note* Diagnosis Diarrhea, unspecified type- Primary documented in this encounter [facility] note* Diagnosis Gastric bypass status for obesity- Primary Bariatric surgery status Iron deficiency anemia, unspecified iron deficiency anemia type Diarrhea, unspecified type documented in this encounter [facility] note* Diagnosis Gastric bypass status for obesity- Primary Bariatric surgery status Iron deficiency anemia, unspecified iron deficiency anemia type Diarrhea, unspecified type documented in this encounter [facility] note* Diagnosis Bloating [R14.0]- Primary Flatulence, eructation, and gas pain documented in this encounter [facility] note* Diagnosis Diarrhea, unspecified type- Primary History of Gelacio-en-Y gastric bypass Bariatric surgery status documented in this encounter [facility] note* Diagnosis Chronic pain syndrome- Primary Intractable abdominal pain Abdominal pain, unspecified site documented in this encounter [facility] note* Diagnosis Diarrhea, unspecified type- Primary documented in this encounter [facility] note* Diagnosis Diarrhea, unspecified type- Primary Chronic pancreatitis, unspecified pancreatitis type (HCC) documented in this encounter [facility] note* Diagnosis Onset Date Resolution Status Abdominal pain acute Diarrhea acute Vomiting acute [facility] Work Phone: Evaluation note* Diagnosis Onset Date Resolution Status Abdominal pain acute Complications of gastric bypass surgery acute Diarrhea acute History of gastric bypass [place] Pyloric stenosis acute Vomiting acute [facility] Work Phone: Evaluation note* Diagnosis History of Gelacio-en-Y gastric bypass- Primary Bariatric surgery status Diarrhea, unspecified type documented in this encounter [facility] note* Diagnosis Diarrhea, unspecified type- Primary [facility] Diagnosis Diarrhea, unspecified type Chronic pancreatitis, unspecified pancreatitis type (HCC) [facility]* Diagnosis Gastric bypass status for obesity Bariatric surgery status Iron deficiency anemia, unspecified iron deficiency anemia type Diarrhea, unspecified type [facility]* Diagnosis Diarrhea due to malabsorption Personal history of other diseases of digestive system [facility] Diagnosis Intestinal malabsorption, unspecified type- Primary [facility]* Diagnosis Diarrhea due to malabsorption- Primary Personal history of other diseases of digestive system Malnutrition of mild degree (HCC) Malnutrition of mild degree Status post gastric surgery Other postprocedural status Incontinence of feces with fecal urgency [facility]* Diagnosis Moderate protein-calorie malnutrition (HCC)- Primary Malnutrition of moderate degree [facility]* Diagnosis Complications of gastric bypass surgery- Primary Other digestive system complications Dumping syndrome Postgastric surgery syndromes Diarrhea, unspecified type History of sleeve gastrectomy History of Gelacio-en-Y gastric bypass Bariatric surgery status Overweight with body mass index (BMI) of 28 to 28.9 in adult Encounter for weight management [facility] Diagnosis S/P gastric bypass- Primary Bariatric surgery status Impaired intestinal absorption Unspecified intestinal malabsorption Moderate protein-calorie malnutrition (HCC) Malnutrition of moderate degree Dietary counseling and surveillance Dietary surveillance and counseling [facility]* Diagnosis Malnutrition of mild degree (HCC)- Primary Malnutrition of mild degree [facility] Diagnosis Malnutrition of mild degree (HCC)- Primary Malnutrition of mild degree Chronic vomiting Vomiting alone Pelvic floor weakness Other specified genital prolapse S/P gastric bypass Bariatric surgery status Chronic constipation with overflow Unspecified constipation Abdominal wall pain in left upper quadrant Abdominal pain, left upper quadrant [facility] Diagnosis Diarrhea, unspecified type- Primary Nausea Nausea alone [facility]* Diagnosis Malnutrition of mild degree (HCC)- Primary Malnutrition of mild degree [facility]* Diagnosis Abdominal wall pain in left upper quadrant Abdominal pain, left upper quadrant [facility]* Diagnosis Chronic pain syndrome- Primary [facility]* Diagnosis Dietary counseling and surveillance- Primary Dietary surveillance and counseling Malnutrition of mild degree (HCC) Malnutrition of mild degree Diarrhea, unspecified type [facility] Diagnosis Dumping syndrome- Primary Postgastric surgery syndromes Complications of bariatric procedures Other complications of other bariatric procedure History of Gelacio-en-Y gastric bypass Bariatric surgery status Complications of gastric bypass surgery Other digestive system complications [facility]* Diagnosis Malnutrition of moderate degree (HCC)- Primary Malnutrition of moderate degree [facility]* Diagnosis Onset Date Resolution Status Dehydration acute GI bleed acute Hx of Clostridium difficile infection acute Intractable abdominal pain a cute Intractable nausea and vomiting acute [facility] Work Phone: Evaluation note* Diagnosis Diarrhea due to malabsorption- Primary Personal history of other diseases of digestive system Vitamin D deficiency Unspecified vitamin D deficiency documented [facility] this [facility] Diagnosis Onset Date Resolution Status Abdominal pain acute Complications of gastric bypass surgery acute Dehydration acute Diarrhea acute Gastroparesis acute GI bleed acute History of gastric bypass ac [place] Hx of Clostridium difficile infection acute Intractable abdominal pain a cute Intractable nausea and vomiting acute Pyloric stenosis acute Vomiting acute [facility] Work Phone: Evaluation note* Diagnosis Projectile vomiting with nausea- Primary Functional diarrhea Poor appetite Anorexia PIC line (peripherally inserted central catheter) flush Fitting and adjustment of vascular catheter Moderate episode of recurrent major depressive disorder (HCC) (CMS/HCC) Anxiety Anxiety state, unspecified documented in this encounter [facility] HealthcareEvaluation note* Diagnosis Chronic pain syndrome- Primary Generalized abdominal pain Abdominal pain, generalized Neuralgia and neuritis Neuralgia, neuritis, and radiculitis, unspecified H/O gastric bypass Bariatric surgery status documented in this encounter [facility] Diagnosis Malnutrition of moderate degree (HCC)- Primary Malnutrition of moderate degree Impaired hydration Chronic nausea Nausea alone Chronic diarrhea Diarrhea History of Gelacio-en-Y gastric bypass Bariatric surgery status documented in this encounter [facility] noteNo [email or web address] CenterEver[facility] Other Evaluation note* Diagnosis Onset Date Resolution Status Abdominal pain resolved Dehydration resolved GI bleed resolved Intractable abdominal pain r esolved Intractable nausea and vomiting resolved Pyloric stenosis resolved Vomiting resolved [facility] Work Phone: Evaluation note* Diagnosis FTT (failure to thrive) in adult- Primary Adult failure to thrive documented in this encounter [facility] note* Diagnosis Encounter for medical examination to establish care- Primary Pleural effusion, right Unspecified pleural effusion Community acquired bacterial pneumonia Unspecified bacterial pneumonia C. difficile colitis Acute gastric erosion Partial gastric outlet obstruction [facility] Author Ashwin Macias [facility] April 29, 2022 4:23pm Note Date/Time April 29, 2022 4: 23pm [facility] [address] [place] [address] Hospitalist H&P Signed Patient: Melina Díaz MR#: [id number] : 1975 Acct:[id number] Age/Sex: 46 / F Adm Date: 2 Loc: Room: [address] [place] [address] Type: ADM INOo Attending Dr: Ashwin Macias MD Copies to: MD Ashwin Alberts MD~ HPI DATE OF EXAMINATION: 04/29/22 CHIEF COMPLAINT: Abdominal pain and diarrhea. HISTORY OF PRESENT ILLNESS: Mrs. Díaz is a 46-year-old female with a known diagnosis of gastric sleeve followed by gastric bypass 4 months ago. Reportedly the patient has pyloric stenosis requiring dilatation. Last dilatation was done at a week ago. Patient did fairly well postprocedure up until yesterday when she started havingworsening abdominal pain associated with nausea, vomiting and diarrhea. No fever or chills. No hematemesis or melena. No other symptoms reported Review of Systems Review of Systems All other systems reviewed & are negative unless noted below or in HPI PMFSH Vaccinated for COVID-19?: Yes Medical History (Updated 04/29/22 @ 14:36 by Jarred Begum MD) Thyroid nodule Surgical History (Updated 04/29/22 @ 01:05 by Leslie Shine RN) Gastric bypass status for obesity H/O gastric sleeve History of section History of hysterectomy Hx of cholecystectomy Social History Smoking Status: Never smoker Substance Use Type: None Meds Medications and Allergies Allergies adhesive tape Allergy (Verified 08/09/21 08:07) Unknown Reaction aspartame Allergy (Verified 04/29/22 01:04) Headache gabapentin Allergy (Verified 04/29/22 01:04) Swelling of Lip/Tongue/Throat ketorolac [From Toradol] Allergy (Verified 04/29/22 01:04) Edema tramadol Allergy (Verified 04/29/22 01:04) Hives Home Medications amoxicillin 875 mg-potassium clavulanate 125 mg tablet 1 tab PO Q12H 04/29/22 [History Confirmed 04/29/22] calcium citrate 250 mg PO BID 04/29/22 [History Confirmed 04/29/22] cyanocobalamin (vitamin B-12) 1,000 mcg/mL injection solution (Dodex) 1,000 mcg IM QWEEK 04/29/22 [History Confirmed 04/29/22] dextroamphetamine-amphetamine 20 mg tablet 20 mg PO BID 04/29/22 [History Confirmed 04/29/22] diphenhydramine HCl 25 mg capsule (Benadryl) 25 mg PO TID PRN HIVES 04/29/22 [History Confirmed 04/29/22] eletriptan 40 mg tablet (Relpax) 40 mg PO Q2H PRN Headache 04/29/22 [History Confirmed 04/29/22] levothyroxine 50 mcg tablet (Synthroid) 50 mcg PO DAILY 04/29/22 [History Confirmed 04/29/22] methocarbamol 500 mg tablet 500 mg PO Q8HR 04/29/22 [History Confirmed 04/29/22] omeprazole 40 mg capsule,delayed release 40 mg PO BID 04/29/22 [History Confirmed 04/29/22] ondansetron 8 mg disintegrating tablet 8 mg translingual Q8HR 04/29/22 [History Confirmed 04/29/22] oxycodone 5 mg/5 mL oral solution 5 mg PO Q6HR 04/29/22 [History Confirmed 04/29/22] promethazine 25 mg tablet 25 mg PO Q8HR 04/29/22 [History Confirmed 04/29/22] sucralfate 100 mg/mL oral suspension (Carafate) 10 ml PO QID 04/29/22 [History Confirmed 04/29/22] Exam Physical Exam Vital Signs: Temp Pulse Resp BP Pulse Ox O2 Del Method 97.7 F 69 20 130/79 100 Room Air 04/29/22 15:27 04/29/22 15:27 04/29/22 15:27 04/29/22 15:27 04/29/22 15:27 04/29/22 15:27 Narrative: [pt is awake and alert. oriented to place, time and person. In mild distress secondary to epigastric pain HEENT: [place] conjunctiva and NL buccal mucosa Neck: Supple, no tenderness Endocrine: No Thyromegaly. Vascular: No JVD or carotid bruit. Lymphatic: No cervical lymphadenopathy. Chest: CTA no DTP. Heart RRR, no extra sound or murmur. Abd: Soft, mild tenderness in the epigastric area. Mild tenderness in the periumbilical area as well. No guarding, no rebound LE: No cyanosis or clubbing, no varices or edema. Neuro: A A O. Nl speech, comprehension and attention. Nl and symetrical motor and tone examination through out. []] Results Lab Results Labs: Laboratory Last Values Corrected WBC 7.0 X10E3/uL (3.8-11.6) 04/29/22 01:42 Uncorrected WBC Count 7.0 x10E3/uL (4.5-11.0) 04/29/22 01:42 RBC 4.29 x10E6/uL (3.60-5.00) 04/29/22 01:42 Hgb 12.4 g/dL (11.8-15.4) 04/29/22 01:42 Hct 37.4 % (34.0-46.4) 04/29/22 01:42 MCV 87.1 fl (80-100) 04/29/22 01:42 MCH 28.9 pg (24.7-34.3) 04/29/22 01:42 MCHC 33.2 g/dL (32.0-35.0) 04/29/22 01:42 RDW 16.1 % (11.9-15.3) H 04/29/22 01:42 Plt Count 268 x10E3/uL (150-450) 04/29/22 01:42 MPV 8.3 fl (6.3-10.7) 04/29/22 01:42 Neut % (Auto) 62.7 % (.) 04/29/22 01:42 Lymph % (Auto) 24.4 % (.) 04/29/22 01:42 [place] % (Auto) 9.3 % (.) 04/29/22 01:42 Eos % (Auto) 2.6 % (.) 04/29/22 01:42 Baso % (Auto) 1.0 % (.) 04/29/22 01:42 Neut # (Auto) 4.4 x10E3/uL (1.8-7.7) 04/29/22 01:42 Lymph # (Auto) 1.7 x10E3/uL (1.00-4.8) 04/29/22 01:42 [place] # (Auto) 0.7 x10E3/uL (0.0-0.8) 04/29/22 01:42 Eos # (Auto) 0.2 x10E3/uL (0.0-0.45) 04/29/22 01:42 Baso # (Auto) 0.1 x10E3/uL (0.0-0.2) 04/29/22 01:42 Nucleated RBC % (auto) 0.1 % (0-0.5) 04/29/22 01:42 PHA Creatinine Clear 140.54 04/29/22 01:42 Sodium 141 mmol/L (136-146) 04/29/22 01:42 Potassium 3.3 mmol/L (3.5-5.1) L 04/29/22 01:42 Chloride 104 mmol/L (95-114) 04/29/22 01:42 Carbon Dioxide 28.1 mmol/L (22.0-30.0) 04/29/22 01:42 BUN 4 mg/dL (9-23) L 04/29/22 01:42 Creatinine 0.61 mg/dL (0.44-1.03) 04/29/22 01:42 Est GFR ( Amer) > 60 mL/Min 04/29/22 01:42 Est GFR (Non-Af Amer) > 60 mL/Min 04/29/22 01:42 Glucose 103 mg/dL (70-100) H 04/29/22 01:42 Calcium 8.9 mg/dL (8.2-10.2) 04/29/22 01:42 Total Bilirubin 0.5 mg/dL (0.3-1.2) 04/29/22 01:42 AST 14 U/L (10-42) 04/29/22 01:42 ALT 12 U/L (10-60) 04/29/22 01:42 Alkaline Phosphatase 67 U/L (32-92) 04/29/22 01:42 Total Protein 5.9 gm/dL (6.1-7.9) L 04/29/22 01:42 Albumin 3.5 gm/dL (3.2-5.5) 04/29/22 01:42 Globulin 2.4 gm/dL 04/29/22 01:42 Albumin/Globulin Ratio 1.5 04/29/22 01:42 Lipase 23.0 U/L (22-51) 04/29/22 01:42 Urine Color Yellow (Yellow) 04/29/22 07:30 Urine Appearance Clear (Clear) 04/29/22 07:30 Urine pH 6.0 (5.0-9.0) 04/29/22 07:30 Ur Specific [place] > 1.050 (1.001-1.030) H 04/29/22 07:30 Urine Protein Negative mg/dL (Negative) 04/29/22 07:30 Urine Glucose (UA) Normal mg/dL (Normal) 04/29/22 07:30 Urine Ketones Negative (Negative) 04/29/22 07:30 Urine Occult Blood Negative (Negative) 04/29/22 07:30 Urine Nitrite Negative (Negative) 04/29/22 07:30 Urine Bilirubin Negative (Negative) 04/29/22 07:30 Urine Urobilinogen Normal mg/dL (Normal) 04/29/22 07:30 Ur Leukocyte Esterase 2+ (Negative) H 04/29/22 07:30 Urine RBC None seen /HPF (0-4) 04/29/22 07:30 Urine WBC 5-9 /HPF (0-4) H 04/29/22 07:30 Ur Squamous Epith Cells 5-9 /HPF (0-2) H 04/29/22 07:30 Urine Bacteria Rare (None Seen) H 04/29/22 07:30 Hyaline Casts 0-8 /LPF (0-8) 04/29/22 07:30 Urine HCG, Qual Negative 04/29/22 07:30 Urine Opiates Screen Positive (Negative) H 04/29/22 07:30 Ur Barbiturates Screen Negative (Negative) 04/29/22 07:30 Ur Phencyclidine Scrn Negative (Negative) 04/29/22 07:30 Ur Amphetamines Screen Negative (Negative) 04/29/22 07:30 U Benzodiazepines Scrn Positive (Negative) H 04/29/22 07:30 Urine Cocaine Screen Negative (Negative) 04/29/22 07:30 U Marijuana (THC) Screen Negative (Negative) 04/29/22 07:30 SARS Antigen (LFIA) Negative (Negative) 04/29/22 01:37 SARS-CoV-2 Rap RNA(RT-PCR) Negative (Negative) 04/29/22 10:40 Microbiology Results Micro: Microbiology - Results from entire visit 04/29/22 10:40 Nasopharyngeal SARS-CoV-2, Influenza & RSV (PCR) - Final 04/29/22 01:37 Nasal SARS Antigen (LFIA) - Final A&P - Hospitalist Assessment/Plan (1) Intractable abdominal pain: (2) Intractable nausea and vomiting: Plan Recurrent nausea and vomiting. Diarrhea. Patient had pyloric dilatation at last week. 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 I had accepted to observe patient over the next 24 to 48 hours. I requested GI consultation. Continue as needed medication for nausea, vomiting and pain. Monitor electrolytes, kidney function, WBC and hemoglobin CAT scan showed mild pancreatic edema. Lipase is normal. Clear liquid diet. Patient would likely need to have additional work-up, investigation and therapeutic intervention that will be determined based on the clinical progression and a follow-up test result. If the patient continues to improve she will be discharged home to follow-up with GI and the surgical team. If the patient continues to be symptomatic we will consider transferring her inpatient to inpatient Documented By: Ashwin Macias MD 04/29/22 1619 Signed By: <Electronically signed by Ashwin Macias MD> 04/29/22 1623 [facility] Work Phone: History and physical note Author Tavares Prince [facility] June 03, 2023 2:49pm Note Date/Time June 03, 2023 2:49pm [facility] [address] [place] [address] Hospitalist H&P Signed Patient: Melina Díaz MR#: [id number] : 1975 Acct:[id number] Age/Sex: 47 / F Adm Date: 3 Loc: ER Room: Type: [facility] ER Attending Dr: Copies to: MD Dania To II, MD Jared M Lizzi, DO~ HPI DATE OF EXAMINATION: 06/03/23 HISTORY OF PRESENT ILLNESS: Patient is a 47-year-old female, status post gastric surgical procedures. It appears that she had initially undergone gastric sleeve procedure some 10 years prior. About 1 year prior to current presentation she had a revision done at [facility] for ulcers. There were some complications, and the patient changed to [facility], when she underwent another revision in July 2022. Things improved for a while, but since the end of March,, she started having diarrhea, weakness, inability to tolerate food. Sounds like she was diagnosed with bacterial overgrowth, and thecourse of antibiotics for few weeks improved some of the symptoms. She was thought to have some pancreatic insufficiency and perhaps prediabetes related tothat. She presents to our facility today, complaining of worsening abdominal pain for the last 24 hours, more so in the epigastrium and radiating to the back. The food intake worsens the pain. She has persistent diarrhea but no blood in the vomitus or stool. ED staff discussed the case with [facility], patient is admitted there, [facility] bed not being immediately available, patient will be admitted to us for temporary treatment. Past medical history Obesity, status post gastric surgery, complications as noted above Family history negative for gastrointestinal problems 10 point review of systems negative except as noted above Physical exam Patient was seen in the ED Patient appears comfortable, in no distress. Skin is normally colored, no icterus, cyanosis or edema noted. Capillary refill is normal. Joints are without any effusion. Abdomen is mildly tender to palpation, otherwise soft benign, no rebound rigidity. Heart regular, no gallop, rub or JVD. Peripheral pulses present bilaterally. Lungs are clear to auscultation, no rales, ronchi or wheezes. HENT normal Neurological: Patient is awake. Cognition is normal. Cranial nerves are intact. Power is symmetric all extremities, with no focal motor deficit identified on a cursory exam. Psych: affect is normal. Labs imaging reviewed CT scan shows mild diffuse colitis, new compared to prior study. Assessment and plan 1. Recurrent abdominal pain, diarrhea, food intolerance. Patient has a complex gastrointestinal history, status post gastric sleeve procedure, with 2 revisions. It sounds like she had peptic ulcer disease, pyloric stenosis, bacterial overgrowth and potentially pancreatic insufficiency or even pancreatitis. Imaging studies currently raise the question of potentialcolitis. The decision to transfer to [facility] is entirely appropriate. About not being immediately available, we will admit the patient to the floor for temporary treatment here. IV fluids Antiemetic Pain medications GI consult DVT prophylaxis with enoxaparin [facility] Medical History (Updated 06/03/23 @ 14:38 by Skip Soto DO) Thyroid nodule Surgical History Gastric bypass status for obesity H/O gastric sleeve History of section History of hysterectomy Hx of cholecystectomy Social History Smoking Status: Never smoker Substance Use Type: None Meds Medications and Allergies Allergies adhesive tape Allergy (Verified 06/03/23 08:28) Unknown Reaction aspartame Allergy (Verified 06/03/23 08:28) Headache gabapentin Allergy (Verified 06/03/23 08:28) Swelling of Lip/Tongue/Throat ketorolac [From Toradol] Allergy (Verified 06/03/23 08:28) Edema tramadol Allergy (Verified 06/03/23 08:28) Hives Home Medications calcium citrate 250 mg PO BID 04/29/22 [History Confirmed 06/03/23] cyanocobalamin (vitamin B-12) 1,000 mcg/mL injection solution (Dodex) 1,000 mcg IM QWEEK 04/29/22 [History Confirmed 06/03/23] dextroamphetamine-amphetamine 20 mg tablet 20 mg PO BID 04/29/22 [History Confirmed 06/03/23] diphenhydramine HCl 25 mg capsule (Benadryl) 25 mg PO TID PRN HIVES 04/29/22 [History Confirmed 06/03/23] eletriptan 40 mg tablet (Relpax) 40 mg PO Q2H PRN Headache 04/29/22 [History Confirmed 06/03/23] levothyroxine 50 mcg tablet (Synthroid) 50 mcg PO DAILY 04/29/22 [History Confirmed 06/03/23] omeprazole 40 mg capsule,delayed release 40 mg PO BID 04/29/22 [History Confirmed 06/03/23] oxycodone 5 mg/5 mL oral solution 7.5 mg PO Q4-6H 04/29/22 [History Confirmed 06/03/23] promethazine 25 mg tablet 25 mg PO Q8HR 04/29/22 [History Confirmed 06/03/23] psyllium seed (sugar) oral powder (Metamucil [place] oral powder) 1 tbsp PO BID PRN constipation #575 grams 05/04/22 [Rx Confirmed 06/03/23] tizanidine 4 mg tablet 4 mg PO Q4H 06/03/23 [History Confirmed 06/03/23] Exam Physical Exam Vital Signs: Temp Pulse Resp BP Pulse Ox O2 Del Method 98.3 F 101 H 18 116/69 96 Room Air 06/03/23 12:16 06/03/23 14:40 06/03/23 14:40 06/03/23 14:40 06/03/23 14:40 06/03/23 14:40 Results Lab Results Labs: Laboratory Last Values Corrected WBC 7.0 X10E3/uL (3.8-11.6) 06/03/23 09:06 Uncorrected WBC Count 7.0 x10E3/uL (3.8-11.6) 06/03/23 09:06 RBC 4.70 X10E6/uL (3.60-5.00) 06/03/23 09:06 Hgb 13.9 g/dL (11.8-15.4) 06/03/23 09:06 Hct 41.9 % (34.0-46.4) 06/03/23 09:06 MCV 89.3 fl (80-100) 06/03/23 09:06 MCH 29.5 pg (24.7-34.3) 06/03/23 09:06 MCHC 33.1 g/dL (32.0-35.0) 06/03/23 09:06 RDW 14.5 % (11.9-15.3) 06/03/23 09:06 Plt Count 256 x10E3/uL (150-450) 06/03/23 09:06 MPV 8.3 fl (6.3-10.7) 06/03/23 09:06 Neut % (Auto) 56.9 % (.) 06/03/23 09:06 Lymph % (Auto) 33.7 % (.) 06/03/23 09:06 [place] % (Auto) 6.8 % (.) 06/03/23 09:06 Eos % (Auto) 1.5 % (.) 06/03/23 09:06 Baso % (Auto) 1.1 % (.) 06/03/23 09:06 Nucleat RBC Rel Count 0.2 /100 WBC (0-0.5) 06/03/23 09:06 Neut # (Auto) 4.0 x10E3/uL (1.8-7.7) 06/03/23 09:06 Lymph # (Auto) 2.4 x10E3/uL (1.00-4.8) 06/03/23 09:06 [place] # (Auto) 0.5 x10E3/uL (0.0-0.8) 06/03/23 09:06 Eos # (Auto) 0.1 x10E3/uL (0.0-0.45) 06/03/23 09:06 Baso # (Auto) 0.1 x10E3/uL (0.0-0.2) 06/03/23 09:06 Monocyte Dist Width 16.68 % (0.00-20.00) 06/03/23 09:06 PT 10.9 Seconds (9.0-12.9) 06/03/23 09:06 INR 0.9 06/03/23 09:06 APTT 28.4 Seconds (25.1-36.5) 06/03/23 09:06 PHA Creatinine Clear 132.34 06/03/23 09:06 Sodium 142 mmol/L (136-145) 06/03/23 09:06 Potassium 3.9 mmol/L (3.5-5.1) 06/03/23 09:06 Chloride 106 mmol/L (98-107) 06/03/23 09:06 Carbon Dioxide 25.4 mmol/L (21.0-31.0) 06/03/23 09:06 Anion Gap 14.5 mEq/L (6.0-15.0) 06/03/23 09:06 BUN 8 mg/dL (7-25) 06/03/23 09:06 Creatinine 0.62 mg/dL (0.60-1.20) 06/03/23 09:06 Est GFR (CKD-EPI) > 60.0 mL/Min 06/03/23 09:06 Glucose 138 mg/dL (70-100) H 06/03/23 09:06 Lactic Acid 0.8 mmol/L (0.5-2.2) 06/03/23 14:10 Calcium 9.3 mg/dL (8.6-10.3) 06/03/23 09:06 Total Bilirubin 0.5 mg/dl (0.3-1.0) 06/03/23 09:06 Direct Bilirubin 0.10 mg/dL (0.03-0.18) 06/03/23 09:06 Indirect Bilirubin 0.4 mg/dL 06/03/23 09:06 AST 26 U/L (13-39) 06/03/23 09:06 ALT 43 U/L (7-52) 06/03/23 09:06 Alkaline Phosphatase 104 U/L (34-104) 06/03/23 09:06 Total Protein 7.0 gm/dL (6.4-8.9) 06/03/23 09:06 Albumin 4.3 gm/dL (3.5-5.7) 06/03/23 09:06 Globulin 2.7 gm/dL 06/03/23 09:06 Albumin/Globulin Ratio 1.6 06/03/23 09:06 Lipase 6.0 U/L (11.0-82.0) L 06/03/23 09:06 Assessment & Plan IP vs OBS Justification Based on differential dx, clinical care plan, and risk of adverse events, if untreated, in my clinical judgement this patient requires an acute care setting as: INPATIENT because of an expectation of an over 2 midnight stay. Estimated length of stay (# of days): 2 Documented By: Tavares Prince MD 06/03/23 1443 Signed By: <Electronically signed by Tavares Prince MD> 06/03/23 1449 [facility] Work Phone: History general Narrative - Reported* Type Description Date Medical History ADHD Surgical History C section Surgical History cholecystectomy Surgical History HYSTERECTOMY Surgical History partial hysterectomy Surgical History gastric sleeve Surgical History thyroid mass Hospitalization History see above Bizimply Other History of Present illness Narrative* Weight:. * Initial weight: 335 lbs. * Last visit weight: 195 lbs. * Current weight: 260 lbs. * The patient's weight was 314 lbs at pre-op visit. * Danielson weight 149 lbs. * Target body weight 196 lbs. * Food: Breakfast: [place] Instant Breakfast, Lunch: Tuna Salad, Dinner: Grilled Porkchops, does not drink carbonated beverage * Fluid intake: 38 oz. * Diet Stage: regular food. * Exercise frequency: patient exercises 2 times per week. * Exercise includes walking. The patient exercises for 30 minutes per day. * Symptoms: The patient reports loss of appetite, hunger, nausea, vomiting, food intolerance everything at this point , diarrhea, dumping syndrome and abdominal pain, but no constipation. * Supplements: taking multivitamins, taking B-12 and taking calcium . Vitamin D. * Comorbidities: anxiety, back pain and esophageal reflux. * GERD * Patient has reflux. * 45 year old female presenting virtually today for evaluation of nausea and vomiting. Patient is s/psleeve gastrectomy with Dr. Parker 10/28/2011. Patient's highest weight prior to surgery was 335, lowest weight was 195. Patient's current weight is 260 with a BMI of approximately 40. * Patient states she was dropping weight out of nowhere. She states she is only able to keep maybe 1 meal per day down, all other meals she either vomits back up or has uncontrollable diarrhea. Patientsaw her PCP who worked her up to find the cause. Ruled out adrenal issues. Noted to have a nodule on her thyroid, is nowon Synthroid for this. Patient then underwent Endoscopy with Dr. Brock 05/16/21. Patient was recommended to be admitted to the hospital, she refused admission at that time. EGD uploaded to [facility]. * Currently taking: Omeprazole 40mg BID, Reglan 10mg before each meal, and Phenergan 25mg Q6h PRN * Esophagus: Bile reflux was noted upon entering the esophagus. There was no structure or varices. The distal esophagus showed some esophagitis and eschar noted at the EG junction. * Stomach: Fundus and Body were normal, post gastric sleeve procedure. Some superficial ulcers and erosions were noted in the antral area. * Duodenum: a mild duodenitis was noted [id number] Work Phone: History of Present illness Narrative* Weight:. * Initial weight: 335 lbs. * Last visit weight: 195 lbs. * Current weight: 260 lbs. * The patient's weight was 314 lbs at pre-op visit. * Danielson weight 149 lbs. * Target body weight 196 lbs. * Food: Breakfast: [place] Instant Breakfast, Lunch: Tuna Salad, Dinner: Grilled Porkchops, does not drink carbonated beverage * Fluid intake: 38 oz. * Diet Stage: regular food. * Exercise frequency: patient exercises 2 times per week. * Exercise includes walking. The patient exercises for 30 minutes per day. * Symptoms: The patient reports loss of appetite, hunger, nausea, vomiting, food intolerance everything at this point , diarrhea, dumping syndrome and abdominal pain, but no constipation. * Supplements: taking multivitamins, taking B-12 and taking calcium . Vitamin D. * Comorbidities: anxiety, back pain and esophageal reflux. * GERD * Patient has reflux. * 45 year old female presenting virtually today for evaluation of nausea and vomiting. Patient is s/psleeve gastrectomy with Dr. Parker 10/28/2011. Patient's highest weight prior to surgery was 335, lowest weight was 195. Patient's current weight is 260 with a BMI of approximately 40. * Patient states she was dropping weight out of nowhere. She states she is only able to keep maybe 1 meal per day down, all other meals she either vomits back up or has uncontrollable diarrhea. Patientsaw her PCP who worked her up to find the cause. Ruled out adrenal issues. Noted to have a nodule on her thyroid, is nowon Synthroid for this. Patient then underwent Endoscopy with Dr. Brock 05/16/21. Patient was recommended to be admitted to the hospital, she refused admission at that time. EGD uploaded to [facility]. * Currently taking: Omeprazole 40mg BID, Reglan 10mg before each meal, and Phenergan 25mg Q6h PRN * Esophagus: Bile reflux was noted upon entering the esophagus. There was no structure or varices. The distal esophagus showed some esophagitis and eschar noted at the EG junction. * Stomach: Fundus and Body were normal, post gastric sleeve procedure. Some superficial ulcers and erosions were noted in the antral area. * Duodenum: a mild duodenitis was noted [id number] Work Phone: Hospital Discharge instructions* Additional Orders:Additional Instructions: Activity instructions: - No lifting, pulling, or pushingobjects greater than 15 pounds for 4 weeks.- Activity otherwise as tolerated. - You may shower. Soap and water may run over your incisions. Pat dry. No submerging in baths or swimming (activities that keep your incisions underwater) for at least two weeks. - You may not drive while taking narcotics. Diet: - You will go home on a full liquid diet (similar to the diet you were on your final day in the hospital)- You will stay on this full liquid diet for two weeks. Acceptable full liquids includeprotein shakes, sugar free jello, sugar free pudding, and creamy soups (no chunks). You will continue to drink clear liquids including water and crystal light. You should aim for 64 ounces of fluid per day, with about half of this being full liquids and half of this being clear liquids. Do not exceed 8 oz per hour.- After two weeks, you should have a discussion with the electrical worker about progressing to a combination of full liquid and pureed foods. - Take fiber daily- For further information, follow the diet instructions listed in your bariatric surgery instruction packet. Medications:- Medications should be crushed and mixed with full liquids. Capsules may be opened and mixed with full liquids.- Extended release medications should not be taken. Please contact your primary care physician toconvert extended release medications to immediate release form. - Take 650mg Tylenol (liquid preferred) every 6 hours for pain. Take between doses of your opioid pain medication. Try to limit the useof your opioid pain medication and only take as needed.- Slowly add your vitamins to your daily medication regimen as tolerated. You do not have to take them within the first few days after surgery if they are causing you nausea or other problems. - If you have medications that you still cannot tolerate by your first visit with your surgeon or dietitian, please discuss this. Call Provider If:- Breathing faster or harder than normal. - Fever of 100.4 F (38 C) or higher or feeling of chills. - Feeling very sleepy and difficult to awaken. - Inability to drink or significant decrease in ability to drink since discharge. - Vomiting (throwing up) and not able to eat or drink for 12 hours. - Urinating much less than your normal.- More than 4 loose, watery bowel movements in 24 hours (diarrhea). - Any new concerning symptoms. * Follow Up Appointment 1:Physician/Dept/Service: Dr. Brittany Ly to Schedule in: Call the office to confirm that you have a follow up the week after dischargeLocation: [place] VirtualPhone Number: [phone] [facility] Other Phone (unformatted): [phone] Discharge instructionsAmbulatory Orders* Initiate Home Health Time Frame: 1 Day, Location: Determined By Patient Additional Instructions I may not have addressed or treated all of your medical illnesses or the abnormal blood work or imaging studies during this hospitalization. Please ask your primary care provider to obtain [facility] records entirely to follow up on all of the abnormal physical, laboratory, and imaging findings that I have not addressed. Please follow-up with your surgeon Dr. Bose. Please return back to the emergency room or seek medical attention if your symptoms worsen or return. Discharging you from [facility] does not mean that your medical care ends here and now. You may still need additional monitoring, work up, investigation, and treatment plan to be handled from this point on by out patient providers including your primary care provider and specialists. For any medication question, please contact your retail pharmacist or your primary care provider. Thank you. Home Health to manage care: - Full code - Routine vital signs - [facility]ication [facility] and [facility] Work Phone: Hospital Discharge instructions Additional Instructions Full [facility] Work Phone: Hospital Discharge instructions Additional Instructions Zofran through the IV for nausea vomiting Push fluids Rest Phenergan suppositories for nausea vomiting if needed Return here if any problems persist or worsen Is important to follow-up with your GI specialist tomorrowF[facility]on [facility] Work Phone: Hospital Discharge instructions Additional Instructions Take Phenergan as prescribed for nausea vomiting take Carafate as prescribed for abdominal pain. Continue take your antacid medication as prescribed. The call centre supervisor for ongoing management and evaluation of your abdominal pain and anemiaFulton County [facility] Center Work Phone: InstructionsNot on filedocumented in this encounter [facility]Spitfire PharmaAlomere [facility] Hospital SystemProgress note Author Ashwin Macias [facility] April 30, 2022 9:17am Note Date/Time April 30, 2022 9: 17am [facility] [address] [place] [address] Hospitalist Progress Note Signed Patient: Melina Díaz MR#: [id number] : 1975 Acct:[id number] Age/Sex: 46 / F Adm Date: 2 Loc: Room: [address] [place] [address] Type: ADM INOo Attending Dr: Ashwin Macias MD Copies to: ~ Date of Service: 04/30/2022 Subjective Subjective Narrative: Patient reported that her diarrhea had resolved. She continues to have upper abdominal discomfort associated with nausea. She is unable to keep anything down. Patient is requesting certain medication by name to be given intravenously rather than orally. No fever or chills. No hematemesis or melena. Exam Physical Exam Vital Signs: Temp Pulse Resp BP Pulse Ox O2 Del Method 97.6 F 63 18 121/79 97 Room Air 04/30/22 04:00 04/30/22 04:00 04/30/22 04:00 04/30/22 04:00 04/30/22 04:00 04/30/22 04:00 Narrative: [pt is awake and alert. oriented to place, time and person. In mild distress secondary to epigastric pain HEENT: Hornell conjunctiva and NL buccal mucosa Neck: Supple, no tenderness Endocrine: No Thyromegaly. Vascular: No JVD or carotid bruit. Lymphatic: No cervical lymphadenopathy. Chest: CTA no DTP. Heart RRR, no extra sound or murmur. Abd: Soft, mild tenderness in the epigastric area. Mild tenderness in the periumbilical area as well. No guarding, no rebound LE: No cyanosis or clubbing, no varices or edema. Neuro: A A O. Nl speech, comprehension and attention. Nl and symetrical motor and tone examination through out. []] Objective Lab Results CBC & Chem 7: 04/30/22 06:35 04/30/22 06:35 Microbiology Results Microbiology 04/29/22 10:40 Nasopharyngeal SARS-CoV-2, Influenza & RSV (PCR) - Final Meds Allergies and Active Meds Allergies adhesive tape Allergy (Verified 08/09/21 08:07) Unknown Reaction aspartame Allergy (Verified 04/29/22 01:04) Headache gabapentin Allergy (Verified 04/29/22 01:04) Swelling of Lip/Tongue/Throat ketorolac [From Toradol] Allergy (Verified 04/29/22 01:04) Edema tramadol Allergy (Verified 04/29/22 01:04) Hives Active Meds: Active Medications Generic Name Dose Route Start Last Admin Trade Name Freq PRN Reason Stop Dose Admin Acetaminophen 650 mg 04/29/22 09:27 Acetaminophen 325 Mg Tablet PO 04/29/23 09:26 Q6HR PRN Pain Scale 1 - 3 or fever Cyanocobalamin 1,000 mcg 05/06/22 09:00 Cyanocobalamin 1,000 Mcg/Ml Vial IM 05/06/23 08:59 Tu@0900 WOLF Cyclobenzaprine HCl 10 mg 04/29/22 22:00 04/29/22 21:07 Cyclobenzaprine 10 Mg Tablet PO 04/29/23 21:59 10 mg Q8HR WOLF Administration Diphenhydramine HCl 12.5 mg 04/30/22 09:12 Diphenhydramine 50 Mg/Ml Vial IV-PUSH Q6H PRN itshing Enoxaparin Sodium 40 mg 04/29/22 10:00 04/29/22 11:59 Enoxaparin 40 Mg/0.4 Ml Syringe SUBCUT 04/29/23 09:59 40 mg DAILY@10 WOLF Administration Famotidine 20 mg 04/29/22 21:00 04/29/22 21:06 Famotidine/Pf 20 Mg/2 Ml Vial IV-PUSH 04/29/23 20:59 20 mg Q12HR WOLF Administration Home Med 1 each 04/29/22 08:06 04/29/22 08:04 Home Meds Kept In Pharmacy MISCELLANE 04/29/23 08:05 1 each PRN PRN Administration zz.Pharmacy Note Hydromorphone HCl 0.5 mg 04/29/22 16:16 04/30/22 06:39 Hydromorphone 0.5 Mg/0.5 Ml Syringe IV-PUSH 0.5 mg Q4H PRN Administration Pain Scale 8 - 10 Lactated Ringer's 1,000 mls @ 100 mls/hr 04/29/22 09:30 04/30/22 02:07 Lactated Ringers IV 04/29/23 09:29 100 mls/hr .Q10H WOLF Administration Ceftriaxone Sodium 1 gm in 50 mls @ 100 mls/hr 04/29/22 09:45 04/29/22 10:58 Rocephin IV Infused Q24H WOLF Infusion Magnesium Sulfate/Dextrose 1 gm in 100 mls @ 100 mls/hr 04/30/22 09:10 Magnesium Sulfate 1 Gm-*D5w* IV 04/30/22 10:09 ONCE ONE Potassium Chloride 20 meq/ 260 mls @ 130 mls/hr 04/30/22 09:10 Sodium Chloride IV 04/30/22 11:09 ONCE ONE Levothyroxine Sodium 50 mcg 04/30/22 06:30 Levothyroxine 50 Mcg Tablet PO 04/30/23 06:29 DAILY@0630 WOLF Oxycodone HCl 5 mg 04/29/22 09:27 Oxycodone Ir 5 Mg Tablet PO Q6HR PRN Pain Scale 4 - 7 Promethazine HCl 12.5 mg 04/29/22 16:16 04/30/22 06:42 Promethazine 25 Mg/Ml Vial IV-PUSH 04/29/23 16:15 12.5 mg Q6H PRN Administration Nausea And Vomiting Sodium Chloride 0 ml 04/29/22 01:03 04/30/22 06:39 Sodium Chloride 0.9 % 10 Ml Syringe IV-PUSH 04/29/23 01:02 10 ml PRN PRN Administration Flush Sodium Chloride 10 ml 04/29/22 09:31 04/30/22 06:43 Sodium Chloride 0.9 % 10 Ml Vial.Pf INJECTION 04/29/23 09:30 10 ml PRN PRN Administration To dilute Pepcid Sodium Chloride 10 ml 04/29/22 16:16 04/29/22 21:06 Sodium Chloride 0.9 % 10 Ml Vial.Pf INJECTION 04/29/23 16:15 10 ml PRN PRN Administration Promethazine Dilution Sucralfate 1 gm 04/29/22 18:00 04/29/22 21:06 Sucralfate Susp 1 Gm/10 Ml Udc PO 04/29/23 17:59 1 gm QID WOLF Administration A&P - Hospitalist Assessment/Plan (1) Intractable abdominal pain: (2) Intractable nausea and vomiting: (3) Hypokalemia: (4) Hypomagnesemia: (5) DVT prophylaxis: Plan Recurrent nausea and vomiting. Diarrhea. Patient had pyloric dilatation at last week. 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 Borderline hypokalemia and hypomagnesemia. Potassium and magnesium supplementation intravenously. Monitor electrolytes, kidney function, WBC and hemoglobin CAT scan showed mild pancreatic edema. Amylase and lipase is normal. Clear liquid diet. GI services to decide whether patient would need another endoscopy. Defer further needed diagnostic and therapeutic intervention related to her GI issues and the timing of these interventions to the GI service. Drug-seeking behaviors. Patient is requesting certain medications by name to begiven intravenously including Phenergan not Zofran, Dilaudid not morphine, Benadryl IV not p.o. I made the patient aware of potential side effects including OFFICE ANALYST depression, respiratory depression, cardiac depression, cardiac dysrhythmia and such. Patient is willing to take oral risk associated for the sake of symptoms control. Patient would likely need to have additional work-up, investigation and therapeutic intervention that will be determined based on the clinical progression and a follow-up test result. If the patient continues to improve she will be discharged home to follow-up with GI and the surgical team. If the patient continues to be symptomatic we will consider transferring her inpatient to inpatient Documented By: Ashwin Macias MD 04/30/22912 Signed By: <Electronically signed by Ashwin Macias MD> 04/30/22916 [facility] Work Phone: Progress note Author Ashwin Macias [facility] May 01, 2022 8:21am Note Date/Time May 01, 2022 8: 18am [facility] [address] [place] [address] Hospitalist Progress Note Signed Patient: Melina Díaz MR#: [id number] : 1975 Acct:[id number] Age/Sex: 46 / F Adm Date: 2 Loc: Room: [address] [place] [address] Type: ADM IN Attending Dr: Ashwin Macias MD Copies to: ~ Date of Service: 05/01/2022 Subjective Subjective Narrative: Patient continues to have symptoms. She continues to have upper abdominal discomfort associated with nausea and inability to take her food. No fever or chills. No hematemesis or melena. No diarrhea. No chest pain or palpitation. No cough or congestion Exam Physical Exam Vital Signs: Temp Pulse Resp BP Pulse Ox O2 Del Method 97.4 F L 68 18 121/78 97 Room Air 05/01/22 04:00 05/01/22 04:00 05/01/22 04:00 05/01/22 04:00 05/01/22 04:00 05/01/22 04:00 Narrative: [pt is awake and alert. oriented to place, time and person. In mild distress secondary to epigastric pain HEENT: Hornell conjunctiva and NL buccal mucosa Neck: Supple, no tenderness Endocrine: No Thyromegaly. Vascular: No JVD or carotid bruit. Lymphatic: No cervical lymphadenopathy. Chest: CTA no DTP. Heart RRR, no extra sound or murmur. Abd: Soft, mild tenderness in the epigastric area. Mild tenderness in the periumbilical area as well. No guarding, no rebound LE: No cyanosis or clubbing, no varices or edema. Neuro: A A O. Nl speech, comprehension and attention. Nl and symetrical motor and tone examination through out. []] Objective Lab Results CBC & Chem 7: 05/01/22 07:37 04/30/22 06:35 Microbiology Results Microbiology 04/29/22 07:30 Urine - Clean-Voided Midstream Urine Culture - Preliminary 40,000 colonies/ml mixed bacterial skin contaminants 1 Day Meds Allergies and Active Meds Allergies adhesive tape Allergy (Verified 08/09/21 08:07) Unknown Reaction aspartame Allergy (Verified 04/29/22 01:04) Headache gabapentin Allergy (Verified 04/29/22 01:04) Swelling of Lip/Tongue/Throat ketorolac [From Toradol] Allergy (Verified 04/29/22 01:04) Edema tramadol Allergy (Verified 04/29/22 01:04) Hives Active Meds: Active Medications Generic Name Dose Route Start Last Admin Trade Name Freq PRN Reason Stop Dose Admin Acetaminophen 650 mg 04/29/22 09:27 Acetaminophen 325 Mg Tablet PO 04/29/23 09:26 Q6HR PRN Pain Scale 1 - 3 or fever Cyanocobalamin 1,000 mcg 05/06/22 09:00 Cyanocobalamin 1,000 Mcg/Ml Vial IM 05/06/23 08:59 Tu@0900 WOLF Cyclobenzaprine HCl 10 mg 04/29/22 22:00 04/30/22 09:40 Cyclobenzaprine 10 Mg Tablet PO 04/29/23 21:59 Not Given Q8HR WOLF Diphenhydramine HCl 12.5 mg 05/01/22 08:13 Diphenhydramine 50 Mg/Ml Vial IV-PUSH Q6H PRN Itshing Enoxaparin Sodium 40 mg 04/29/22 10:00 04/30/22 09:41 Enoxaparin 40 Mg/0.4 Ml Syringe SUBCUT 04/29/23 09:59 40 mg DAILY@10 WOLF Administration Famotidine 20 mg 04/29/22 21:00 05/01/22 08:09 Famotidine/Pf 20 Mg/2 Ml Vial IV-PUSH 04/29/23 20:59 20 mg Q12HR WOLF Administration Guaifenesin 10 ml 04/30/22 11:19 Guaifenesin Syrup 10 Ml Udc PO 04/30/23 11:18 Q4H PRN Cough Home Med 1 each 04/29/22 08:06 04/29/22 08:04 Home Meds Kept In Pharmacy MISCELLANE 04/29/23 08:05 1 each PRN PRN Administration zz.Pharmacy Note Hydromorphone HCl 0.5 mg 04/29/22 16:16 05/01/22 08:08 Hydromorphone 0.5 Mg/0.5 Ml Syringe IV-PUSH 0.5 mg Q4H PRN Administration Pain Scale 8 - 10 Lactated Ringer's 1,000 mls @ 75 mls/hr 04/29/22 09:30 04/30/22 17:49 Lactated Ringers IV 04/29/23 09:29 100 mls/hr .[id number] WOLF Administration Ceftriaxone Sodium 1 gm in 50 mls @ 100 mls/hr 04/29/22 09:45 04/30/22 18:11 Rocephin IV Infused Q24H WOLF Infusion Levothyroxine Sodium 50 mcg 04/30/22 06:30 04/30/22 09:40 Levothyroxine 50 Mcg Tablet PO 04/30/23 06:29 Not Given DAILY@0630 [facility] Oxycodone HCl 5 mg 04/29/22 09:27 Oxycodone Ir 5 Mg Tablet PO Q6HR PRN Pain Scale 4 - 7 Pregabalin 50 mg 04/30/22 17:45 Pregabalin 50 Mg Capsule PO 04/30/22 17:46 ONCE ONE Promethazine HCl 12.5 mg 04/29/22 16:16 05/01/22 04:48 Promethazine 25 Mg/Ml Vial IV-PUSH 04/29/23 16:15 12.5 mg Q6H PRN Administration Nausea And Vomiting Sodium Chloride 0 ml 04/29/22 01:03 05/01/22 02:57 Sodium Chloride 0.9 % 10 Ml Syringe IV-PUSH 04/29/23 01:02 10 ml PRN PRN Administration Flush Sodium Chloride 10 ml 04/29/22 09:31 05/01/22 08:09 Sodium Chloride 0.9 % 10 Ml Vial.Pf INJECTION 04/29/23 09:30 10 ml PRN PRN Administration To dilute Pepcid Sodium Chloride 10 ml 04/29/22 16:16 04/30/22 20:49 Sodium Chloride 0.9 % 10 Ml Vial.Pf INJECTION 04/29/23 16:15 10 ml PRN PRN Administration Promethazine Dilution Sucralfate 1 gm 04/29/22 18:00 04/30/22 22:15 Sucralfate Susp 1 Gm/10 Ml Udc PO 04/29/23 17:59 1 gm QID WOLF Administration A&P - Hospitalist Assessment/Plan (1) Intractable abdominal pain: (2) Intractable nausea and vomiting: (3) Hypokalemia: (4) Hypomagnesemia: (5) DVT prophylaxis: Plan Recurrent nausea and vomiting. Diarrhea. Patient had pyloric dilatation at last week. 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 Borderline hypokalemia and hypomagnesemia. Potassium and magnesium supplementation intravenously. Monitor electrolytes, kidney function, WBC and hemoglobin CAT scan showed mild pancreatic edema. Amylase and lipase is normal. Clear liquid diet. Given the lack of significant improvement would call her GI surgeon Dr. Bose at and seek his input and recommendation specifically regarding transfer to for possible need of EGD and repeat pyloric dilatation. Drug-seeking behaviors. Patient appears to be comfortable as I enter the room but subsequently reports that she is feeling sick. Patient is requesting certain medications by name to be given intravenously including Phenergan not Zofran, Dilaudid not morphine, Benadryl IV not p.o. I made the patient aware of potential side effects including OFFICE ANALYST depression, respiratory depression, cardiac depression, cardiac dysrhythmia and such. Patient gets satisfied with my reasoning not to overmedicate her but she subsequently calls nursing staff and asks for medications to be given at more frequent timeframe. Patient is willing to take oral risk associated for the sake of symptoms control. Patient would likely need to have additional work-up, investigation and therapeutic intervention that will be determined based on the clinical progression and a follow-up test result. If the patient continues to improve she will be discharged home to follow-up with GI and the surgical team. If the patient continues to be symptomatic we will consider transferring her inpatient to inpatient Documented By: Ashwin Macias MD 05/01/22814 Signed By: <Electronically signed by Ashwin Macias MD> 05/01/22820 [facility] Work Phone: Progress note Author Ashwin Macias [facility] May 01, 2022 1:38pm Note Date/Time May 01, 2022 1: 38pm [facility] [address] [place] [address] Progress Note Signed Patient: Melina Díaz MR#: [id number] : 1975 Acct:[id number] Age/Sex: 46 / F Adm Date: 2 Loc: Room: [address] [place] [address] Type: ADM IN Attending Dr: Ashwin Macias MD Copies to: ~ Date of Service: 05/01/2022 Progress Narrative Note PROGRESS NOTE Progress Note: Earlier I called her bariatric surgeon Dr. Conner at at [phone]. I requested to speak with him to seek his opinion and recommendation as to what needs to be done regarding Melina's ongoing nausea, vomiting and epigastric pain. His R D Engineer Elvia stated that he is rounding in the hospital. I left myprivate cell number for him to call me when is able to. Documented By: Ashwin Macias MD 05/01/22 1336 Signed By: <Electronically signed by Ashwin Macias MD> 05/01/22 1336 [facility] Work Phone: progress note Author Ashwin Macias [facility] May 01, 2022 4:02pm Note Date/Time May 01, 2022 4: 02pm [facility] [address] [place] [address] Progress Note Signed Patient: Melina Díaz MR#: [id number] : 1975 Acct:[id number] Age/Sex: 46 / F Adm Date: 2 Loc: Room: [address] [place] [address] Type: ADM IN Attending Dr: Ashwin Macias MD Copies to: ~ Date of Service: 05/01/2022 Progress Narrative Note PROGRESS NOTE Progress Note: Her bariatric Surgeon Dr. Conner called me back. I gave him report on the patient's presentation and the clinical status. He stated that the patient had 2 EGDs within the last 2 weeks. The first 1 patient ended up needing pyloric dilatation. Patient returned to for persistent symptoms therefore another EGD was done. He stated that he did not see any evidence of restenosis and at this time he does not believe that the patient has any mechanical obstruction or mechanical issues causing her GI symptoms. He does not recommend another EGD at this time. He does not recommend transferring patient to stating that he will not do anything different. Is suspected that her symptoms may be psychogenic in nature. I suspect that hersymptoms may be related to food intolerance. He stated that if the patient continues to have GI symptoms and unable to keep anything down she would be candidate for feeding tube to support her nutritionalneeds. He is planning to have a virtual visit with her tomorrow while she is in the hospital and he will let me know if there is anything else need to be done. Documented By: Ashwin Macias MD 05/01/22 4450 Signed By: <Electronically signed by Ashwin Macias MD> 05/01/22 1605 [facility] Work Phone: Progress note Author Ashwin Macias [facility] May 02, 2022 8:35am Note Date/Time May 02, 2022 8: 35am [facility] [address] [place] [address] Hospitalist Progress Note Signed Patient: Melina Díaz MR#: [id number] : 1975 Acct:[id number] Age/Sex: 46 / F Adm Date: 2 Loc: 3T Room: [address] [place] [address] Type: ADM IN Attending Dr: Ashwin Macias MD Copies to: ~ Date of Service: 05/02/2022 Subjective Subjective Narrative: Patient is feeling somewhat better. Last evening she vomited again but that this morning she believes that she is able to keep fluid down. No fever or chills. No hematemesis or melena. No cough or congestion Exam Physical Exam Vital Signs: Temp Pulse Resp BP Pulse Ox O2 Del Method 97.7 F 60 18 120/78 95 Room Air 05/02/22 08:00 05/02/22 08:00 05/02/22 08:00 05/02/22 08:00 05/02/22 08:00 05/02/22 08:00 Narrative: [pt is awake and alert. oriented to place, time and person HEENT: Hornell conjunctiva and NL buccal mucosa Neck: Supple, no tenderness Endocrine: No Thyromegaly. Vascular: No JVD or carotid bruit. Lymphatic: No cervical lymphadenopathy. Chest: CTA no DTP. Heart RRR, no extra sound or murmur. Abd: Soft, mild tenderness in the epigastric and right upper quadrant. No guarding, no rebound. No rigidity LE: No cyanosis or clubbing, no varices or edema. Neuro: A A O. Nl speech, comprehension and attention. Nl and symetrical motor and tone examination through out. []] Objective Lab Results CBC & Chem 7: 05/01/22 07:37 05/01/22 07:37 Microbiology Results Microbiology 04/29/22 07:30 Urine - Clean-Voided Midstream Urine Culture - Final 50,000 colonies/ml mixed bacterial skin contaminants 2 Days Meds Allergies and Active Meds Allergies adhesive tape Allergy (Verified 08/09/21 08:07) Unknown Reaction aspartame Allergy (Verified 04/29/22 01:04) Headache gabapentin Allergy (Verified 04/29/22 01:04) Swelling of Lip/Tongue/Throat ketorolac [From Toradol] Allergy (Verified 04/29/22 01:04) Edema tramadol Allergy (Verified 04/29/22 01:04) Hives Active Meds: Active Medications Generic Name Dose Route Start Last Admin Trade Name Freq PRN Reason Stop Dose Admin Acetaminophen 650 mg 04/29/22 09:27 Acetaminophen 325 Mg Tablet PO 04/29/23 09:26 Q6HR PRN Pain Scale 1 - 3 or fever Cyanocobalamin 1,000 mcg 05/06/22 09:00 Cyanocobalamin 1,000 Mcg/Ml Vial IM 05/06/23 08:59 Tu@0900 WOLF Cyclobenzaprine HCl 10 mg 04/29/22 22:00 04/30/22 09:40 Cyclobenzaprine 10 Mg Tablet PO 04/29/23 21:59 Not Given Q8HR WOLF Diphenhydramine HCl 12.5 mg 05/01/22 09:42 05/02/22 05:25 Diphenhydramine 50 Mg/Ml Vial IV-PUSH 05/01/23 09:41 12.5 mg Q6H PRN Administration Allergic Symptoms Enoxaparin Sodium 40 mg 04/29/22 10:00 05/01/22 09:13 Enoxaparin 40 Mg/0.4 Ml Syringe SUBCUT 04/29/23 09:59 40 mg DAILY@10 WOLF Administration Famotidine 20 mg 04/29/22 21:00 05/02/22 08:02 Famotidine/Pf 20 Mg/2 Ml Vial IV-PUSH 04/29/23 20:59 20 mg Q12HR WOLF Administration Guaifenesin 10 ml 04/30/22 11:19 Guaifenesin Syrup 10 Ml Udc PO 04/30/23 11:18 Q4H PRN Cough Home Med 1 each 04/29/22 08:06 04/29/22 08:04 Home Meds Kept In Pharmacy MISCELLANE 04/29/23 08:05 1 each PRN PRN Administration zz.Pharmacy Note Hydromorphone HCl 0.5 mg 04/29/22 16:16 05/02/22 08:02 Hydromorphone 0.5 Mg/0.5 Ml Syringe IV-PUSH 0.5 mg Q4H PRN Administration Pain Scale 8 - 10 Lactated Ringer's 1,000 mls @ 75 mls/hr 04/29/22 09:30 05/01/22 22:24 Lactated Ringers IV 04/29/23 09:29 75 mls/hr .[id number] WOLF Administration Ceftriaxone Sodium 1 gm in 50 mls @ 100 mls/hr 04/29/22 09:45 05/01/22 09:44 Rocephin IV Infused Q24H WOLF Infusion Levothyroxine Sodium 50 mcg 04/30/22 06:30 05/02/22 06:56 Levothyroxine 50 Mcg Tablet PO 04/30/23 06:29 Not Given DAILY@0630 WOLF Oxycodone HCl 5 mg 04/29/22 09:27 Oxycodone Ir 5 Mg Tablet PO Q6HR PRN Pain Scale 4 - 7 Promethazine HCl 12.5 mg 04/29/22 16:16 05/02/22 05:26 Promethazine 25 Mg/Ml Vial IV-PUSH 04/29/23 16:15 12.5 mg Q6H PRN Administration Nausea And Vomiting Sodium Chloride 0 ml 04/29/22 01:03 05/02/22 05:28 Sodium Chloride 0.9 % 10 Ml Syringe IV-PUSH 04/29/23 01:02 10 ml PRN PRN Administration Flush Sodium Chloride 10 ml 04/29/22 09:31 05/02/22 08:02 Sodium Chloride 0.9 % 10 Ml Vial.Pf INJECTION 04/29/23 09:30 10 ml PRN PRN Administration To dilute Pepcid Sodium Chloride 10 ml 04/29/22 16:16 05/02/22 05:27 Sodium Chloride 0.9 % 10 Ml Vial.Pf INJECTION 04/29/23 16:15 10 ml PRN PRN Administration Promethazine Dilution Sucralfate 1 gm 04/29/22 18:00 05/02/22 08:02 Sucralfate Susp 1 Gm/10 Ml Udc PO 04/29/23 17:59 1 gm QID WOLF Administration A&P - Hospitalist Assessment/Plan (1) Intractable abdominal pain: (2) Intractable nausea and vomiting: (3) Hypokalemia: (4) Hypomagnesemia: (5) DVT prophylaxis: Plan Patient continues to be symptomatic requiring extension of her inpatient stay No additional imaging, diagnostic or therapeutic recommendation were provided byher bariatric surgeon . Please refer to my note yesterday Dr. Conner has virtual visit with the patient today at 11:00 For nutritional support I added Ensure [address] Bose recommended to discharge patient home when she is able to keep food down and follow-up with him in a week or 2. If she continues to be symptomatic he would recommend PEG or J-tube feed to support her nutrition need over longer period of time Continue Pepcid and Carafate. Her abdomen is very benign. Expected discharge tomorrow. Documented By: Ashwin Macias MD 05/02/2233 Signed By: <Electronically signed by Ashwin Macias MD> 05/02/2235 [facility] Work Phone: Progress note Author Ashwin Macias [facility] May 03, 2022 10:13am Note Date/Time May 03, 2022 10 :13am [facility] [address] [place] [address] Hospitalist Progress Note Signed Patient: Melina Díaz MR#: [id number] : 1975 Acct:[id number] Age/Sex: 46 / F Adm Date: 2 Loc: Room: [address] [place] [address] Type: ADM IN Attending Dr: Ashwin Macias MD Copies to: ~ Date of Service: 05/03/2022 Subjective Subjective Narrative: Patient feeling better but continues to have intermittent nausea and emesis. She did very well last evening but this morning she feels sick. No bowel movement. Improvement of her abdominal pain. No fever or chills Exam Physical Exam Vital Signs: Temp Pulse Resp BP Pulse Ox O2 Del Method 97.6 F 65 16 129/89 95 Room Air 05/03/22 09:10 05/03/22 09:10 05/03/22 09:10 05/03/22 09:10 05/03/22 09:10 05/03/22 09:10 Narrative: [pt is awake and alert. oriented to place, time and person HEENT: [place] conjunctiva and NL buccal mucosa Neck: Supple, no tenderness Endocrine: No Thyromegaly. Vascular: No JVD or carotid bruit. Lymphatic: No cervical lymphadenopathy. Chest: CTA no DTP. Heart RRR, no extra sound or murmur. Abd: Soft, mild tenderness in the epigastric and right upper quadrant. No guarding, no rebound. No rigidity LE: No cyanosis or clubbing, no varices or edema. Neuro: A A O. Nl speech, comprehension and attention. Nl and symetrical motor and tone examination through out. []] Objective Lab Results CBC & Chem 7: 05/01/22 07:37 05/01/22 07:37 Meds Allergies and Active Meds Allergies adhesive tape Allergy (Verified 08/09/21 08:07) Unknown Reaction aspartame Allergy (Verified 04/29/22 01:04) Headache gabapentin Allergy (Verified 04/29/22 01:04) Swelling of Lip/Tongue/Throat ketorolac [From Toradol] Allergy (Verified 04/29/22 01:04) Edema tramadol Allergy (Verified 04/29/22 01:04) Hives Active Meds: Active Medications Generic Name Dose Route Start Last Admin Trade Name Freq PRN Reason Stop Dose Admin Acetaminophen 650 mg 04/29/22 09:27 Acetaminophen 325 Mg Tablet PO 04/29/23 09:26 Q6HR PRN Pain Scale 1 - 3 or fever Cyanocobalamin 1,000 mcg 05/06/22 09:00 Cyanocobalamin 1,000 Mcg/Ml Vial IM 05/06/23 08:59 Tu@0900 WOLF Cyclobenzaprine HCl 10 mg 04/29/22 22:00 04/30/22 09:40 Cyclobenzaprine 10 Mg Tablet PO 04/29/23 21:59 Not Given Q8HR WOLF Diphenhydramine HCl 12.5 mg 05/01/22 09:42 05/03/22 08:49 Diphenhydramine 50 Mg/Ml Vial IV-PUSH 05/01/23 09:41 12.5 mg Q6H PRN Administration Allergic Symptoms Enoxaparin Sodium 40 mg 04/29/22 10:00 05/03/22 08:51 Enoxaparin 40 Mg/0.4 Ml Syringe SUBCUT 04/29/23 09:59 40 mg DAILY@10 WOLF Administration Famotidine 20 mg 05/03/22 21:00 Famotidine 20 Mg Tablet PO 05/03/23 20:59 BID WOLF Guaifenesin 10 ml 04/30/22 11:19 Guaifenesin Syrup 10 Ml Udc PO 04/30/23 11:18 Q4H PRN Cough Home Med 1 each 04/29/22 08:06 04/29/22 08:04 Home Meds Kept In Pharmacy MISCELLANE 04/29/23 08:05 1 each PRN PRN Administration zz.Pharmacy Note Hydromorphone HCl 0.5 mg 04/29/22 16:16 05/03/22 06:22 Hydromorphone 0.5 Mg/0.5 Ml Syringe IV-PUSH 0.5 mg Q4H PRN Administration Pain Scale 8 - 10 Lactated Ringer's 1,000 mls @ 50 mls/hr 04/29/22 09:30 05/02/22 13:41 Lactated Ringers IV 04/29/23 09:29 50 mls/hr .Q20H WOLF Administration Ceftriaxone Sodium 1 gm in 50 mls @ 100 mls/hr 04/29/22 09:45 05/03/22 08:51 Rocephin IV 100 mls/hr Q24H WOLF Administration Levothyroxine Sodium 50 mcg 04/30/22 06:30 05/03/22 06:21 Levothyroxine 50 Mcg Tablet PO 04/30/23 06:29 50 mcg DAILY@0630 WOLF Administration Oxycodone HCl 5 mg 04/29/22 09:27 05/03/22 08:50 Oxycodone Ir 5 Mg Tablet PO 5 mg Q6HR PRN Administration Pain Scale 4 - 7 Promethazine HCl 12.5 mg 04/29/22 16:16 05/03/22 06:28 Promethazine 25 Mg/Ml Vial IV-PUSH 04/29/23 16:15 12.5 mg Q6H PRN Administration Nausea And Vomiting Sodium Chloride 0 ml 04/29/22 01:03 05/03/22 06:30 Sodium Chloride 0.9 % 10 Ml Syringe IV-PUSH 04/29/23 01:02 10 ml PRN PRN Administration Flush Sodium Chloride 10 ml 04/29/22 16:16 05/02/22 17:52 Sodium Chloride 0.9 % 10 Ml Vial.Pf INJECTION 04/29/23 16:15 10 ml PRN PRN Administration Promethazine Dilution Sucralfate 1 gm 04/29/22 18:00 05/03/22 08:51 Sucralfate Susp 1 Gm/10 Ml Udc PO 04/29/23 17:59 1 gm QID WOLF Administration A&P - Hospitalist Assessment/Plan (1) Intractable abdominal pain: (2) Intractable nausea and vomiting: (3) Hypokalemia: (4) Hypomagnesemia: (5) DVT prophylaxis: Plan Patient continues to be symptomatic requiring extension of her inpatient stay. She felt well last evening but this morning she feels sick and she is going to throw up. She continues to require IV fluid infusion No additional imaging, diagnostic or therapeutic recommendation were provided byher bariatric surgeon . Please refer to my note yesterday Dr. Conner has virtual visit with the patient on Thursday. He did not recommend transfer to . He recommended the patient to have PEG tube or J-tube inserted within the next week or 2. This will need to be done at . Patient is able tokeep some of her Ensure down. I would not expect patient that she is going to have remarkable or significant recovery from this retractable a problem that is likely related to post gastric bypass expected issues. Continue Pepcid and Carafate. Her abdomen is very benign. Expected discharge from the Documented By: Ashwin Macias MD 05/03/22 1011 Signed By: <Electronically signed by Ashwin Macias MD> 05/03/22 1013 [facility] Work Phone: Reason for referral (narrative)* Outpatient Procedure (Routine) - Pending Review Specialty Diagnoses / Procedures Referred By Brenda nash Referred To Contact [facility] Diagnoses Marginal ulcer Procedures EGD - THERAPEUTIC, EUS, OR TUBE INTERVENTIONS EGD BALLOON DILATION ESOPHAGUS <30 [place] [address] [place] [address] [facility] [place] [address] [place] [address] Referral ID Status Reason Start Date Expiration Date Visits Requested Visits Authorized [id number] Pending Review Auto-Generat ed Referral 06/16/2022 06/16/2023 1 1 * Consult, Test, Treat (Routine) - Authorized Specialty Diagnoses / Procedures Referred By Brenda nash Referred To Contact Pain Management Diagnoses Chronic prescription opiate use Procedures CONSULT TO PAIN MGT OFFICE/OUTPATIENT [facility] HIGH MDM 60-[place] [address] [place] [address] Referral ID Status Reason Start Date Expiration Date Visits Requested Visits Authorized [id number] Authorized PCP Requested Referral 06/16/2022 06/16/2023 1 1 * MRI/CT (Routine) - Authorized Specialty Diagnoses / Procedures Referred By Brenda nash Referred To Contact CT IMAGING Diagnoses Adverse effect of treatment, initial encounter Marginal ulcer Procedures CTA ABD/PEL W IVCON CT ANGIO ABD&PLVIS CNTRST MTRL W/[place] [id number] Imaging Referral ID Status Reason Start Date Expiration Date Visits Requested Visits Authorized [id number] Authorized Auto-Generat ed Referral 06/16/2022 07/16/2023 2 2 [facility] for referral (narrative)* Outpatient Procedure (Routine) - Pending Review Specialty Diagnoses / Procedures Referred By Brenda nash Referred To Contact [facility] Diagnoses Diarrhea, unspecified type History of Gelacio-en-Y gastric bypass Procedures COLONOSCOPY DIAGNOSTIC COLONOSCOPY FLX DX W/COLLJ SPEC WHEN Frances 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 [employer]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 [address] [place] [address] [facility] [place] [address] [place] [address] Referral ID Status Reason Start Date Expiration Date Visits Requested Visits Authorized [id number] Pending Review Auto-Generat ed Referral 04/10/2024 1 1 [facility] for referral (narrative)* Outpatient Procedure (Routine) - Pending Review Specialty Diagnoses / Procedures Referred By Contac t Referred To Contact [facility] Diagnoses Diarrhea, unspecified type Chronic pancreatitis, unspecified pancreatitis type (HCC) Procedures EGD - THERAPEUTIC, EUS, OR TUBE INTERVENTIONS EDG US EXAM SURGICAL ALTER STOM DUODENUM/JEJUNUM Maged Goddard MD [address] [place] [address] [place] [address] Referral ID Status Reason Start Date Expiration Date Visits Requested Visits Authorized [id number] Pending Review Auto-Generat ed Referral 06/02/2023 06/02/2024 1 1 * Consult, Test, Treat (Routine) - Authorized Specialty Diagnoses / Procedures Referred By Contac t Referred To Contact Nutrition Diagnoses Diarrhea, unspecified type Chronic pancreatitis, unspecified pancreatitis type (HCC) Procedures CONSULT TO NUTRITION THERAPY MEDICAL NUTRITION ASSMT&IVNTJ INDIV EACH 15 [place] MEDICAL NUTRITION ASSMT&IVNTJ INDIV EACH 15 [place] MEDICAL NUTRITION ASSMT&IVNTJ INDIV EACH 15 [place] MEDICAL NUTRITION ASSMT&IVNTJ INDIV EACH 15 [place] Maged Goddard MD [address] [place] [address] Referral ID Status Reason Start Date Expiration Date Visits Requested Visits Authorized [id number] Authorized PCP Requested Referral 06/02/2023 06/01/2024 1 1 [facility] for referral (narrative)* Outpatient Procedure (Routine) - Closed Specialty Diagnoses / Procedures Referred By Contac t Referred To Contact [facility] Diagnoses Diarrhea, unspecified type Chronic pancreatitis, unspecified pancreatitis type (HCC) Procedures EGD - THERAPEUTIC, EUS, OR TUBE INTERVENTIONS EDG US EXAM SURGICAL ALTER STOM DUODENUM/JEJUNUM Maged Goddard MD [address] [place] [address] [facility] [place] [facility] [place] [address] Referral ID Status Reason Start Date Expiration Date V isits Requested Visits Authorized [id number] Closed Auto-Generate d Referral 06/02/2023 06/02/2024 1 1 [facility] for referral (narrative)* Diagnostic Procedure Only (Routine) - Pending Review Specialty Diagnoses / Procedures Referred By Contac t Referred To Contact XR IMAGING Diagnoses Incontinence of feces with fecal urgency Procedures XR ABDOMEN 1V SUPINE RADIOLOGIC EXAM ABDOMEN 1 VIEW Hamlet Zafar MD [facility] [address] [place] [address] Xr Imaging [facility] Referral ID Status Reason Start Date Expiration Date Visits Requested Visits Authorized [id number] Pending Review Auto-Generat ed Referral 08/11/2024 1 1 * Outpatient Procedure (Routine) - Closed Specialty Diagnoses / Procedures Referred By Contac t Referred To Contact [facility] Diagnoses 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 Procedures [facility] ANORECTAL MANOMETRY ANORECTAL MANOMETRY Hamlet Zafar MD [facility] [address] [place], [place] [id number] [facility] [place] [id number] Referral ID Status Reason Start Date Expiration Date V isits Requested Visits Authorized [id number] Closed Auto-Generate d Referral 07/13/2023 07/13/2024 1 1 [facility] for visit Narrative* Outpatient Procedure (Routine) - Closed Specialty Diagnoses / Procedures Referred By Contac t Referred To Contact [facility] Diagnoses Diarrhea, unspecified type Chronic pancreatitis, unspecified pancreatitis type (HCC) Procedures EGD - THERAPEUTIC, EUS, OR TUBE INTERVENTIONS EDG US EXAM SURGICAL ALTER STOM DUODENUM/[place] [address] [place], [place] [id number] [facility] [place] [address] Referral ID Status Reason Start Date Expiration Date V isits Requested Visits Authorized [id number] Closed Auto-Generate d Referral 06/02/2023 06/02/2024 1 1 [facility] Summary Purpose Family History No Family History Records FoundUnknown Family Member Name Dates Details Family history of [place] (myocar dial infarction): Father, Paternal Grandfather, Mother(V17.3, Z82.49) Status:Active Family history of heart dise ase: Father, Paternal Grandfather, Mother(V17.49, Z82.49) Status:Active Unknown Family Member Name Dates Details Family history of [place] (myocar dial infarction): Father, Paternal Grandfather, Mother(V17.3, Z82.49) Status:Active Family history of heart dise ase: Father, Paternal Grandfather, Mother(V17.49, Z82.49) Status:Active Unknown Family Member Name Dates Details Family history of [place] (myocar dial infarction): Father, Paternal Grandfather, Mother(V17.3, Z82.49) Status:Active Family history of heart dise ase: Father, Paternal Grandfather, Mother(V17.49, Z82.49) Status:Active Unknown Family Member Name Dates Details Family history of [place] (myocar dial infarction): Father, Paternal Grandfather, Mother(V17.3, Z82.49) Status:Active Family history of heart dise ase: Father, Paternal Grandfather, Mother(V17.49, Z82.49) Status:Active Unknown Family Member Name Dates Details Family history of [place] (myocar dial infarction): Father, Paternal Grandfather, Mother(V17.3, Z82.49) Status:Active Family history of heart dise ase: Father, Paternal Grandfather, Mother(V17.49, Z82.49) Status:Active Unknown Family Member Name Dates Details Family history of [place] (myocar dial infarction): Father, Paternal Grandfather, Mother(V17.3, Z82.49) Status:Active Family history of heart dise ase: Father, Paternal Grandfather, Mother(V17.49, Z82.49) Status:Active Unknown Family Member Name Dates Details Family history of [place] (myocar dial infarction): Father, Paternal Grandfather, Mother(V17.3, Z82.49) Status:Active Family history of heart dise ase: Father, Paternal Grandfather, Mother(V17.49, Z82.49) Status:Active Unknown Family Member Name Dates Details Family history of [place] (myocar dial infarction): Father, Paternal Grandfather, Mother(V17.3, Z82.49) Status:Active Family history of heart dise ase: Father, Paternal Grandfather, Mother(V17.49, Z82.49) Status:Active Unknown Family Member Name Dates Details Family history of [place] (myocar dial infarction): Father, Paternal Grandfather, Mother(V17.3, Z82.49) Status:Active Family history of heart dise ase: Father, Paternal Grandfather, Mother(V17.49, Z82.49) Status:Active Unknown Family Member Name Dates Details Family history of [place] (myocar dial infarction): Father, Paternal Grandfather, Mother(V17.3, Z82.49) Status:Active Family history of heart dise ase: Father, Paternal Grandfather, Mother(V17.49, Z82.49) Status:Active Unknown Family Member Name Dates Details Family history of [place] (myocar dial infarction): Father, Paternal Grandfather, Mother(V17.3, Z82.49) Status:Active Family history of heart dise ase: Father, Paternal Grandfather, Mother(V17.49, Z82.49) Status:Active Unknown Family Member Name Dates Details Family history of [place] (myocar dial infarction): Father, Paternal Grandfather, Mother(V17.3, Z82.49) Status:Active Family history of heart dise ase: Father, Paternal Grandfather, Mother(V17.49, Z82.49) Status:Active Unknown Family Member Name Dates Details Family history of [place] (myocar dial infarction): Father, Paternal Grandfather, Mother(V17.3, Z82.49) Status:Active Family history of heart dise ase: Father, Paternal Grandfather, Mother(V17.49, Z82.49) Status:Active Unknown Family Member Name Dates Details Family history of heart dise ase: Father, Paternal Grandfather, Mother(V17.49, Z82.49) Status:Active Family history of [place] (myocar dial infarction): Father, Paternal Grandfather, Mother(V17.3, Z82.49) Status:Active Unknown Family Member Name Dates Details Family history of [place] (myocar dial infarction): Father, Paternal Grandfather, Mother(V17.3, Z82.49) Status:Active Family history of heart dise ase: Father, Paternal Grandfather, Mother(V17.49, Z82.49) Status:Active Unknown Family Member Name Dates Details Family history of [place] (myocar dial infarction): Father, Paternal Grandfather, Mother(V17.3, Z82.49) Status:Active Family history of heart dise ase: Father, Paternal Grandfather, Mother(V17.49, Z82.49) Status:Active Unknown Family Member Name Dates Details Family history of [place] (myocar dial infarction): Father, Paternal Grandfather, Mother(V17.3, Z82.49) Status:Active Family history of heart dise ase: Father, Paternal Grandfather, Mother(V17.49, Z82.49) Status:Active Unknown Family Member Name Dates Details Family history of [place] (myocar dial infarction): Father, Paternal Grandfather, Mother(V17.3, Z82.49) Status:Active Family history of heart dise ase: Father, Paternal Grandfather, Mother(V17.49, Z82.49) Status:Active Unknown Family Member Name Dates Details Family history of [place] (myocar dial infarction): Father, Paternal Grandfather, Mother(V17.3, Z82.49) Status:Active Family history of heart dise ase: Father, Paternal Grandfather, Mother(V17.49, Z82.49) Status:Active Unknown Family Member Name Dates Details Family history of [place] (myocar dial infarction): Father, Paternal Grandfather, Mother(V17.3, Z82.49) Status:Active Family history of heart dise ase: Father, Paternal Grandfather, Mother(V17.49, Z82.49) Status:Active Unknown Family Member Name Dates Details Family history of [place] (myocar dial infarction): Father, Paternal Grandfather, Mother(V17.3, Z82.49) Status:Active Family history of heart dise ase: Father, Paternal Grandfather, Mother(V17.49, Z82.49) Status:Active Unknown Family Member Name Dates Details Family history of [place] (myocar dial infarction): Father, Paternal Grandfather, Mother(V17.3, Z82.49) Status:Active Family history of heart dise ase: Father, Paternal Grandfather, Mother(V17.49, Z82.49) Status:Active Unknown Family Member Name Dates Details Family history of [place] (myocar dial infarction): Father, Paternal Grandfather, Mother(V17.3, Z82.49) Status:Active Family history of heart dise ase: Father, Paternal Grandfather, Mother(V17.49, Z82.49) Status:Active Unknown Family Member Name Dates Details Family history of [place] (myocar dial infarction): Father, Paternal Grandfather, Mother(V17.3, Z82.49) Status:Active Family history of heart dise ase: Father, Paternal Grandfather, Mother(V17.49, Z82.49) Status:Active Relationship Condition Age at Onset Recorded Date/T cheyanne father Pulmonary emphysema Unknown Relationship Condition Age at Onset Recorded Date/T cheyanne father Pulmonary emphysema Unknown father Unknown Heart disease Unknown Not Specified Heart disease Unknown Advance Directives No Advanced Directives Records Found Advance Directive Response Recorded Date/ Time Advance Directives No June 25, 2021 3:16pm Documents on File Type Date Recorded Patient Acrobatic Rigger Expl anation Advance Directive(s) 09/27/2019 7:51 AM Documents on File Type Date Recorded Patient Acrobatic Rigger Expl anation Advance Directive(s) 09/27/2019 7:51 AM Documents on File Type Date Recorded Patient Acrobatic Rigger Expl anation Advance Directive(s) 07/30/2022 4:02 PM Advance Directive(s) 09/27/2019 7:51 AM Documents on File Type Date Recorded Patient Acrobatic Rigger Expl anation Advance Directive(s) 07/30/2022 4:02 PM Advance Directive(s) 09/27/2019 7:51 AM Latest Code Status on File Code Status Date Activated Date Inactivated Comments Full Code 04/08/2023 3:09 AM Question Answer Comments Full Code Order Discussed With: Patient Latest Code Status on File Code Status Date Activated Date Inactivated Comments Full Code 04/08/2023 3:09 AM Question Answer Comments Full Code Order Discussed With: Patient Latest Code Status on File Code Status Date Activated Date Inactivated Comments Full Code 04/08/2023 3:09 AM 04/12/2023 2:59 PM Question Answer Comments Full Code Order Discussed With: Patient Latest Code Status on File Code Status Date Activated Date Inactivated Comments Full Code 04/08/2023 3:09 AM 04/12/2023 2:59 PM Question Answer Comments Full Code Order Discussed With: Patient Latest Code Status on File Code Status Date Activated Date Inactivated Comments Full Code 04/08/2023 3:09 AM 04/12/2023 2:59 PM Question Answer Comments Full Code Order Discussed With: Patient Latest Code Status on File Code Status Date Activated Date Inactivated Comments Full Code 04/08/2023 3:09 AM 04/12/2023 2:59 PM Question Answer Comments Full Code Order Discussed With: Patient Latest Code Status on File Code Status Date Activated Date Inactivated Comments Full Code 08/10/2023 11:58 AM 08/17/2023 9:43 PM Question Answer Comments Full Code Order Discussed With: Patient Code Status History Code Status Date Activated Date Inactivated Comments Full Code 04/08/2023 3:09 AM 04/12/2023 2:59 PM Question Answer Comments Full Code Order Discussed With: Patient Advance Directive Response Recorded Date/ Time Advance Directives No June 25, 2021 2:16pm Latest Code Status on File Code Status Date Activated Date Inactivated Comments Full Code 04/08/2022 10:48 AM 04/11/2022 6:46 PM Code Status History Code Status Date Activated Date Inactivated Comments Full Code 05/16/2021 11:18 AM 05/17/2021 7:26 PM Chief Complaint * The patient is being seen for follow up. Type of surgery: Sleeve Gastrectomy . Surgery date: 10/28/2011. * An interactive audio and video telecommunication system which permits real time communications between the patient (at the originating site) and provider (at the distant site) was utilized to providethis telehealth service. * Verbal consent was requested and obtained from MELINA DÍAZ on this date, 05/24/2021 08:30 AM , for a telehealth visit. * The patient is being seen for follow up. Type of surgery: Sleeve Gastrectomy . Surgery date: 10/28/2011. * An interactive audio and video telecommunication system which permits real time communications between the patient (at the originating site) and provider (at the distant site) was utilized to providethis telehealth service. * Verbal consent was requested and obtained from MELINA DÍAZ on this date, 05/24/2021 08:30 AM , for a telehealth visit. * A telephone visit (audio only) between the patient (at the originating site) and the provider (at the distant site) was utilized to provide this telehealth service. * obesity * initial nutrition assessment * A telephone visit (audio only) between the patient (at the originating site) and the provider (at the distant site) was utilized to provide this telehealth service. * obesity * [facility] Pt is follow up for CPAP Results for release for surgeryPt is follow up for CPAP Results for release for surgery* The patient is being seen for problem. The patient is having the following problems: Abdominal Pain, Nausea, Vomiting, Diarrhea. Type of surgery: Sleeve Gastrectomy . Surgery date: 10/28/2011. * An interactive audio and video telecommunication system which permits real time communications between the patient (at the originating site) and provider (at the distant site) was utilized to providethis telehealth service. * Verbal consent was requested and obtained from MELINA DÍAZ on this date, 12/12/2021 11:15 AM , for a telehealth visit. The patient is being seen for pre operative visit. Type of surgery:. Surgery date: 12/23/21.The patient is being seen for pre operative visit. Type of surgery:. Surgery date: 12/23/21.* A telephone visit (audio only) between the patient (at the originating site) and the provider (at the distant site) was utilized to provide this telehealth service. * Verbal consent was requested and obtained from MELINA DÍAZ on this date, 12/30/2021 09:30 AM , for a telehealth visit. * Nutrition follow up * Presurgery clearance * The patient is being seen for post operative visit. * The patient is being seen today for a 2 week post-op visit. Type of surgery: Revision: SG -> RYGB. * An interactive audio and video telecommunication system which permits real time communications between the patient (at the originating site) and provider (at the distant site) was utilized to providethis telehealth service. * Verbal consent was requested and obtained from MELINA DÍAZ on this date, 01/06/2022 10:45 AM , for a telehealth visit. * The patient is being seen for post operative visit. * The patient is being seen today for a 6 week post-op visit. Type of surgery: Revision: SG -> RYGB. * An interactive audio and video telecommunication system which permits real time communications between the patient (at the originating site) and provider (at the distant site) was utilized to providethis telehealth service. * Verbal consent was requested and obtained from MELINA DÍAZ on this date, 01/30/2022 01:40 PM , for a telehealth visit. * The patient is being seen for post operative visit. * The patient is being seen today for a 6 week post-op visit. Type of surgery: Revision: SG -> RYGB. * An interactive audio and video telecommunication system which permits real time communications between the patient (at the originating site) and provider (at the distant site) was utilized to providethis telehealth service. * Verbal consent was requested and obtained from MELINA DÍAZ on this date, 01/31/2022 11:15 AM , for a telehealth visit. * The patient is being seen for post operative visit. * The patient is being seen today for a 6 week post-op visit. Type of surgery: Revision: SG -> RYGB. * An interactive audio and video telecommunication system which permits real time communications between the patient (at the originating site) and provider (at the distant site) was utilized to providethis telehealth service. * Verbal consent was requested and obtained from MELINA DÍAZ on this date, 01/31/2022 11:15 AM , for a telehealth visit. * The patient is being seen for problem. The patient is having the following problems: Follow up fromhospital discharge. s/p revision 12/23/21. * The patient is being seen today for a 6 week post-op visit. Type of surgery: Revision: SG -> RYGB . Surgery date: 12/23/21. * A telephone visit (audio only) between the patient (at the originating site) and the provider (at the distant site) was utilized to provide this telehealth service. * Verbal consent was requested and obtained from MELINA DÍAZ on this date, 04/25/2022 10:15 AM , for a telehealth visit. * The patient is being seen for problem. The patient is having the following problems: Follow up fromhospital discharge. s/p revision 12/23/21. * The patient is being seen today for a 6 week post-op visit. Type of surgery: Revision: SG -> RYGB . Surgery date: 12/23/21. * An interactive audio and video telecommunication system which permits real time communications between the patient (at the originating site) and provider (at the distant site) was utilized to providethis telehealth service. * Verbal consent was requested and obtained from MELINA DÍAZ on this date, 05/09/2022 08:30 AM , for a telehealth visit. Chief Complaint and Reason for Visit Chief Complaint post surgery issues Reason for Visit Complications of gas tric bypass surgery DVT prophylaxis Hypokalemia Hypomagnesemia Intractable abdominal pain Intractable nausea and vomiting Chief Complaint ABD pain back pain Reason for Visit Abdominal pain Diarrhea Vomiting Chief Complaint ABD pain back pain Reason for Visit Abdominal pain Complications of gastric bypass surgery Diarrhea History of gastric bypass Pyloric stenosis Vomiting Chief Complaint vomiting,c-diff last 3 wks, blood in stool Reason for Visit Dehydration GI bleed Hx of Clostridium difficile infection Intractable abdominal pain Intractable nausea and vomiting Chief Complaint vomiting,c-diff last 3 wks, blood in stool vomiting,c-diff last 3 wks, blood in stool Reason for Visit Abdominal pain Complications of gastric bypass surgery Dehydration Diarrhea Gastroparesis GI bleed History of gastric bypass Hx of Clostridium difficile infection Intractable abdominal pain Intractable nausea and vomiting Pyloric stenosis Vomiting Chief Complaint vomiting,c-diff last 3 wks, blood in stool vomiting,c-diff last 3 wks, blood in stool n/v/d abd pain Reason for Visit Abdominal pain Complications of gastric bypass surgery Dehydration Diarrhea Gastroparesis GI bleed History of gastric bypass Hx of Clostridium difficile infection Intractable abdominal pain Intractable nausea and vomiting Pyloric stenosis Vomiting Chief Complaint vomiting,c-diff last 3 wks, blood in stool vomiting,c-diff last 3 wks, blood in stool n/v/d abd pain High fever for 2 day Reason for Visit Abdominal pain Dehydration GI bleed Intractable abdominal pain Intractable nausea and vomiting Pyloric stenosis Vomiting Health Concerns Infection Onset Date Last Indicated Resolved Time COVID-19 Rule-Out 06/16/2022 06/16/2022 06/16/2022 12:29 PM EDT Infection Onset Date Last Indicated Resolved Time COVID-19 Rule-Out 06/26/2022 06/26/2022 06/26/2022 1:04 AM EDT Infection Onset Date Last Indicated Resolved Time COVID-19 Rule-Out 08/12/2022 08/12/2022 08/12/2022 2:12 AM EST Infection Onset Date Last Indicated Resolved Time COVID-19 Rule-Out 07/29/2022 07/29/2022 07/29/2022 11:11 PM EST COVID-19 Rule-Out 08/12/2022 08/12/2022 08/12/2022 2:12 AM EST Infection Onset Date Last Indicated Resolved Time C. difficile 09/12/2022 09/12/2022 COVID-19 Rule-Out 09/16/2022 09/16/2022 09/18/2022 8:54 AM EST Infection Onset Date Last Indicated Resolved Time C. difficile 09/12/2022 09/12/2022 Infection Onset Date Last Indicated Resolved Time C. difficile 09/12/2022 09/12/2022 04/09/2023 8:32 AM EDT Reason for Referral Specialty Diagnoses / Procedures Referred By Contac t Referred To Contact Hematology Diagnoses 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 Procedures CONSULT TO HEMATOLOGY OFFICE/OUTPATIENT [facility] MDM 60-[place] [address] [place] [address] Referral ID Status Reason Start Date Expiration Date Visits Requested Visits Authorized [id number] Authorized PCP Requested Referral 08/01/2023 1 1 Specialty Diagnoses / Procedures Referred By Contac t Referred To Contact Pain Management Diagnoses Intractable abdominal pain Chronic pain syndrome Procedures CONSULT TO PAIN MGT OFFICE/OUTPATIENT [facility] MDM 60-[place] [address] [place] [address] Referral ID Status Reason Start Date Expiration Date Visits Requested Visits Authorized [id number] Authorized PCP Requested Referral 04/30/2023 04/23/2024 1 1 Specialty Diagnoses / Procedures Referred By Contac t Referred To Contact Pain Management Diagnoses Abdominal wall pain in left upper quadrant Procedures CONSULT TO PAIN MGT OFFICE/OUTPATIENT [facility] MDM 60-74 MINUTES Hamlet Zafar MD [facility] [address] [place], [place] [phone] Referral ID Status Reason Start Date Expiration Date Visits Requested Visits Authorized [id number] Authorized PCP Requested Referral 3 07/26/2024 1 1 Specialty Diagnoses / Procedures Referred By Contac t Referred To Contact [facility] Diagnoses Pelvic floor weakness Chronic constipation with overflow Procedures CONSULT TO PHYSICAL THERAPY PHYSICAL THERAPY EVALUATION HIGH COMPLEX 45 MINS Hamlet Zafar MD [facility] [address] [place], [place] [phone] [facility] [place] [id number] Referral ID Status Reason Start Date Expiration Date Visits Requested Visits Authorized [id number] Pending Review Auto-Generat ed Referral 3 07/26/2024 1 1 Specialty Diagnoses / Procedures Referred By Contac t Referred To Contact [facility] Diagnoses Chronic vomiting Malnutrition of mild degree (HCC) Procedures EGD - THERAPEUTIC, EUS, OR TUBE INTERVENTIONS ESOPHAGOSCOPY FLEXIBLE TRANSNASAL DIAGNOSTIC Hamlet Zafar MD [facility] [address] [place], [place] [phone] [facility] [place] [address] [place], [place] [id number] Referral ID Status Reason Start Date Expiration Date Visits Requested Visits Authorized [id number] Pending Review Auto-Generat ed Referral 3 07/27/2024 1 1 Specialty Diagnoses / Procedures Referred By Contact Referred To Contact Nutrition / GASTROENTEROLOGY Diagnoses Malnutrition of mild degree (HCC) Procedures CONSULT TO NUTRITION THERAPY MEDICAL NUTRITION ASSMT&IVNTJ INDIV EACH 15 [place] MEDICAL NUTRITION ASSMT&IVNTJ INDIV EACH 15 [place] MEDICAL NUTRITION ASSMT&IVNTJ INDIV EACH 15 [place] MEDICAL NUTRITION ASSMT&IVNTJ INDIV EACH 15 [place] Hamlet Zafar MD [facility] [address] [place], [place] [phone] [facility] [address] [place] [address] Referral ID Status Reason Start Date Expiration Date Visits Requested Visits Authorized [id number] Authorized PCP Requested Referral 3 07/30/2024 1 1 Specialty Diagnoses / Procedures Referred By Brenda nash Referred To Contact Diagnoses Projectile vomiting with nausea Functional diarrhea Poor appetite Belem Remy, [employer] JUDGE [address] [facility] [address] [place] [address] Referral ID Status Reason Start Date Expiration Date Visits Re quested Visits Authorized [id number] Closed 1 1 Medications Administered Section Inactive Administered Medications - up to 3 most recent administrations Medication Order MAR Action Action Date Dose Rate Site iron sucrose 300 mg in NaCl 0.9% 250 mL (VENOFER) 300 mg, INTRAVENOUS, at 166.67 mL/hr, Administer over 90 Minutes, ONCE, 1 dose, On Kecia 08/28/22 at 1130, Please conduct a 30 minute post dose observation. New Bag/Syringe/Bottle 08/28/2022 11:17 AM EST 300 mg 166.67 mL/hr Additional Source Comments INFORMATION SOURCE (unrecogn ized section and content) DATE CREATED AUTHOR 03/04/2018 [facility] DATE CREATED AUTHOR AUTHOR'S ORGANIZ ATION 02/28/2021 [facility] DATE CREATED AUTHOR AUTHOR'S ORGANIZ ATION 04/09/2021 [facility] DATE CREATED AUTHOR AUTHOR'S ORGANIZ ATION 11/01/2021 [facility] DATE CREATED AUTHOR AUTHOR'S ORGANIZ ATION 12/05/2021 [facility] DATE CREATED AUTHOR AUTHOR'S ORGANIZ ATION 04/03/2022 [facility] dical Specialist DATE CREATED AUTHOR AUTHOR'S ORGANIZ ATION 04/28/2022 [facility] DATE CREATED AUTHOR AUTHOR'S ORGANIZ ATION 05/11/2022 [facility] DATE CREATED AUTHOR AUTHOR'S ORGANIZ ATION 11/26/2022 [facility] DATE CREATED AUTHOR AUTHOR'S ORGANIZ ATION 12/29/2022 [facility] DATE CREATED AUTHOR AUTHOR'S ORGANIZ ATION 04/24/2023 [facility] DATE CREATED AUTHOR AUTHOR'S ORGANIZ ATION 04/25/2023 [facility] DATE CREATED AUTHOR AUTHOR'S ORGANIZ ATION 04/30/2023 [facility] DATE CREATED AUTHOR AUTHOR'S ORGANIZ ATION 11/13/2023 [facility] DATE CREATED AUTHOR AUTHOR'S ORGANIZ ATION 11/14/2023 [facility] DATE CREATED AUTHOR AUTHOR'S ORGANIZ ATION 11/14/2023 [facility] dical [facility] DATE CREATED AUTHOR AUTHOR'S ORGANIZ ATION 11/17/2023 [facility] DATE CREATED AUTHOR AUTHOR'S ORGANIZ ATION 11/19/2023 [facility] <item><item><item> Privacy Markings (unrecogniz ed section and content) Section Author: Kael Pemberton PROHIBITION ON REDISCLOSURE OF CONFIDENTIAL INFORMATION This notice accompanies a disclosure of information concerning a client made to you with the consent of such client. Section Author: Kael Pemberton PROHIBITION ON REDISCLOSURE OF CONFIDENTIAL INFORMATION This notice accompanies a disclosure of information concerning a client made to you with the consent of such client. Section Author: Kael Pemberton PROHIBITION ON REDISCLOSURE OF CONFIDENTIAL INFORMATION This notice accompanies a disclosure of information concerning a client made to you with the consent of such client. Reason for Visit (unrecogniz ed section and content) Reason Comments Pain Specialty Diagnoses / Procedures Referred By Contac t Referred To Contact [facility] Diagnoses Abdominal wall pain in left upper quadrant Procedures CONSULT TO PAIN MGT OFFICE/OUTPATIENT [facility] 60-74 MINUTES Hamlet Zafar MD [facility] [address] [place] [address] [facility] [place] [address] [place] [address] Referral ID Status Reason Start Date Expiration Date V isits Requested Visits Authorized [id number] Closed PCP Requested Referral 07/27/2023 07/26/2024 1 1 Reason Comments New Patient Reason Comments Hospital Admission TPN Reason Comments FMLA Paperwork Reason Comments Received Outside Medical Records Reason Comments Hospital Admission Reason Comments Abdominal Pain Specialty Diagnoses / Procedures Referred By Contac t Referred To Contact Pain Management Diagnoses Chronic prescription opiate use Procedures CONSULT TO PAIN MGT OFFICE/OUTPATIENT [facility] 60-[place] [address] [place] [address] Referral ID Status Reason Start Date Expiration Date V isits Requested Visits Authorized [id number] Closed PCP Requested Referral 06/16/2022 06/16/2023 1 1 Reason Comments Opened In Error Reason Comments Follow Up Phone Call Post Discharge F/U - attempt made. No answer. Reason Comments pre-auth Reason Comments Consult Reason Comments Picc Occlusion Reason Comments 07/31/2022 GJ revision Reason Comments Clinical Update Reason Comments Follow Up Phone Call Reason Comments Abdominal Pain F/u from surgery Reason Comments Patient Update Reason Comments Medication Problem Reason Comments Results Reason Comments Appointment Reason Comments Medication Problem Prior Authorization needed Reason Comments Benefits Investigation Reason Comments Medication Problem Pain medication Reason Comments Misc. [facility] Reason Comments Non-Chemotherapy Treatment Specialty Diagnoses / Procedures Referred By Contac t Referred To Contact Diagnoses Iron deficiency anemia, unspecified iron deficiency anemia type Procedures IRON SUCROSE INJECTION PER 1 MG Rip Youssef, BOAT FUELER.MANAGER 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 [address] [place] [address] [facility] [address] [place] [address] Referral ID Status Reason Start Date Expiration Date V isits Requested Visits Authorized [id number] Authorized 08/13/2022 11/10/2022 99 99 Reason Comments Post Op 4 weeks CXR Prior / Surgery with Dr. Griffin 07/29/22 Reason Comments Diarrhea Reason Comments pre-auth information Reason Onset Date Comments Refill Request 09/19/2022 Reason Comments Anemia Reason Comments Follow Up Phone Call Post Discharge F/U - attempt made. No answer. Reason Comments Post Op Reason Comments Refill Request Reason Onset Date Comments Results 03/28/2023 Reason Comments Breath Hydrogen Test Reason Onset Date Comments Schedule Surgery 04/10/2023 Reason Comments Patient Question SIBO Treatment Reason Comments Received Outside Medical Records Office Note [facility]/ Dr. Kael Fuentes Reason Comments Diarrhea Reason Comments Appointment Confirmation Reason Comments Nutrition Assessment Reason Comments Abdominal Pain Diarrhea Reason Comments TPN Start Reason Comments Manometry Specialty Diagnoses / Procedures Referred By Contac t Referred To Contact [facility] Diagnoses 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 Procedures [facility] ANORECTAL MANOMETRY ANORECTAL MANOMETRY Hamlet Zafar MD [facility] [address] [address] [facility] [place] [address] [place] [phone] Referral ID Status Reason Start Date Expiration Date V isits Requested Visits Authorized [id number] Closed Auto-Generate d Referral 07/13/2023 07/13/2024 1 1 Reason Comments New Patient Reason Comments Complications of bariatric surgery Reason Comments Assessment Patient Education Reason Comments Established Patient CGRT Reason Comments Diarrhea Reason Comments short term disability paperwork Reason Comments Results, Lab Reason Comments Patient Education Assessment Specialty Diagnoses / Procedures Referred By Contact Referred To Contact Nutrition / GASTROENTEROLOGY Diagnoses Malnutrition of mild degree (HCC) Procedures CONSULT TO NUTRITION THERAPY MEDICAL NUTRITION ASSMT&IVNTJ INDIV EACH 15 [place] MEDICAL NUTRITION ASSMT&IVNTJ INDIV EACH 15 [place] MEDICAL NUTRITION ASSMT&IVNTJ INDIV EACH 15 [place] MEDICAL NUTRITION ASSMT&IVNTJ INDIV EACH 15 [place] [facility] [address] [place] [address] [facility] [address] [place] [address] Referral ID Status Reason Start Date Expiration Date V isits Requested Visits Authorized [id number] Closed PCP Requested Referral 07/31/2023 07/30/2024 1 1 Reason Comments Patient Question Reason Comments supplies Reason Comments Clinical Update and missed appt Reason Comments Results DUE: 10/06/2023 Reason Onset Date Comments Refill Request 10/22/2023 Reason Comments Med Refill XanaxVenlafaxine Reason Comments Malnutrition Reason Comments Question Reason Comments qiestion about Gen Surg appt Reason Comments Symptoms Reason Comments Rash Care Teams (unrecognized sec tion and content) Team Status: Active Member Role Status Dates Dnaia Pardo II MD Primary Care Provider Active Team Status: Active Member Role Status Dates Dania Pardo II MD Primary Care Provider Active Start: October 08, 2023 Amber Johnston APRN Emergency Provider Active Start: October 08, 2023 Cruz Garcia , Admit Provider, At tending Provider, Other Provider Active Start: October 08, 2023 Carolyn Vang MD Other Provider Active Start: Sepclinton 2023 Negro Magana MD Other Provider Active Start: October 08, 2023 Team Status: Inactive Member Role Status Dates Dania Pardo II MD Primary Care Provider Active Skip Soto DO Emergency Provider Active Tavares Prince MD Admit Provider, Attending Provider Active Jarred Begum MD Other Provider Active 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 Relationship Specialty Start Date End Date Reynold Moore MD [address] [place] [id number] PCP - General Family Medicine 08/15/15 Team Status: Inactive Member Role Status Dates Marc Nguyễn DO Emergency Provider Active Yg James MD Primary Care Provider Active Ashwin Macias MD Admit Provider, Attending Provider Active Stepan Fuentes MD Other Provider Active Lashawn Velez DO Other Provider Active Jarred Begum MD Other Provider Active Team Status: Active Member Role Status Dates Yg James MD Primary Care Provider Active 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 Relationship Specialty [place] [address] [place] [address] PCP - General Family Medicine 07/09/12 Jacob Sharp [address] [facility] [address] Referring 04/30/22 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 Relationship Specialty [place] [address] [place] [address] PCP - General Family Medicine 07/09/12 Jacob Sharp [id number] [place] [address], [place] [address] Referring 04/30/22 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 Relationship Specialty [place] [address] [place] [address] PCP - General Family Medicine 07/09/12 Jacob Sharp [id number] [place] [address], [place] [address] Referring 04/30/22 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 Relationship Specialty [place] [address] [place] [address] PCP - General Family Medicine 07/09/12 Jacob Sharp [address] [place] [address] Referring 04/30/22 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 Relationship Specialty [place] [address] [place] [address] PCP - General Family Medicine 07/09/12 Jacob Sharp [address] [place] [address] Referring 04/30/22 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 Relationship Specialty [place] [address] [place] [address] PCP - General Family Medicine 07/09/12 Jacob Sharp [address] [place] [address] Referring 04/30/22 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 Relationship Specialty [place] [address] [place] [address] PCP - General Family Medicine 07/09/12 Jacob Sharp [id number] [place] [address], [place] [address] Referring 04/30/22 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 Relationship Specialty [place] [address] [place] [address] PCP - General Family Medicine 07/09/12 Jacob Sharp [address] [place] [address], [place] [address] Referring 04/30/22 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 Relationship Specialty [place] [address] [place] [address] PCP - General Family Medicine 07/09/12 Jacob Sharp [address] [place] [address], [place] [address] Referring 04/30/22 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 Relationship Specialty [place] [address] [place] [address] PCP - General Family Medicine 07/09/12 Jacob Sharp [address] [place] [address], [place] [address] Referring 04/30/22 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 Relationship Specialty [place] [address] [place] [address] PCP - General Family Medicine 07/09/12 Jacob Sharp [address] [place] [address], [place] [address] Referring 04/30/22 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 Relationship Specialty [place] [address] [place] [address] PCP - General Family Medicine 07/09/12 Jacob Sharp [address] [facility] [address] Referring 04/30/22 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 Relationship Specialty [place] [address] [place] [address] PCP - General Family Medicine 07/09/12 Jacob Sharp [address] [place] [address] Referring 04/30/22 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 Relationship Specialty [place] [address] [place] [address] PCP - General Family Medicine 07/09/12 Jacob Sharp [address] [place] [address] Referring 04/30/22 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 Relationship Specialty [place] [address] [place] [address] PCP - General Family Medicine 07/09/12 Jacob Sharp [address] [facility] [address] Referring 04/30/22 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 Relationship Specialty [place] [address] [place] [address] PCP - General Family Medicine 07/09/12 Jacob Sharp [address] [facility] [address] Referring 04/30/22 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 Relationship Specialty [place] [address] [place] [address] PCP - General Family Medicine 07/09/12 Jacob Sharp [address] [place] [address] Referring 04/30/22 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 Relationship Specialty [place] [address] [place] [address] PCP - General Family Medicine 07/09/12 Jacob Sharp [address] [facility] [id number] Referring 04/30/22 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 Relationship Specialty [place] [address] [place] [address] PCP - General Family Medicine 07/09/12 Jacob Sharp [address] [facility] [address] Referring 04/30/22 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 Relationship Specialty [place] [address] [place] [address] PCP - General Family Medicine 07/09/12 Jacob Sharp [address] [facility] [address] Referring 04/30/22 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 Relationship Specialty [place] [address] [place] [address] PCP - General Family Medicine 07/09/12 Jacob Sharp 39502 [facility] [address] Referring 04/30/22 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 Relationship Specialty [place] [address] [place] [address] PCP - General Family Medicine 07/09/12 Jacob Sharp [address]807 [facility] [address] Referring 04/30/22 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 Relationship Specialty [place] [address] [place] [address] PCP - General Family Medicine 07/09/12 Jacob Sharp [address] [place] [address], [place] [address] Referring 04/30/22 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 Relationship Specialty [place] [address] [place] [address] PCP - General Family Medicine 07/09/12 Jacob Sharp [id number] [place] [address], [place] [address] Referring 04/30/22 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 Relationship Specialty [place] [address] [place] [address] PCP - General Family Medicine 07/09/12 Jacob Sharp [id number] [place] [address], [place] [address] Referring 04/30/22 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 Relationship Specialty [place] [address] [place] [address] PCP - General Family Medicine 07/09/12 Jacob Sharp [address] [place] [address], [place] [address] Referring 04/30/22 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 Relationship Specialty [place] [address] [place] [address] PCP - General Family Medicine 07/09/12 Jacob Sharp [address] [facility] [place] [address] Referring 04/30/22 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 Relationship Specialty [place] [address] [facility] [place] [address] PCP - General Family Medicine 07/09/12 Jacob Sharp [address]4760 [facility] [place] [address] Referring 04/30/22 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 Relationship Specialty [place] [address] [facility] [place] [address] PCP - General Family Medicine 07/09/12 Jacob Sharp 34553 [facility] [place] [address] Referring 04/30/22 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 Relationship Specialty [place] [address] [facility] [place] [address] PCP - General Family Medicine 07/09/12 Jacob Sharp 14927 [facility] [place] [address] Referring 04/30/22 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 Relationship Specialty [place] [address] [facility] [place] [address] PCP - General Family Medicine 07/09/12 Jacob Sharp 29734 [facility] [place] [address] Referring 04/30/22 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 Relationship Specialty [place] [address] [facility] [place] [address] PCP - General Family Medicine 07/09/12 Jacob Sharp [address]108 [facility] [place] [address] Referring 04/30/22 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 Relationship Specialty [place] [address] [place] [address] PCP - General Family Medicine 07/09/12 Jacob Sharp [address]88 [facility] [address] Referring 04/30/22 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 Relationship Specialty [place] [address] [place] [address] PCP - General Family Medicine 07/09/12 Jacob Sharp [address] [place] [address], [place] [address] Referring 04/30/22 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 Relationship Specialty [place] [address] [place] [address] PCP - General Family Medicine 07/09/12 Jacob Sharp 06268 [facility] [address] Referring 04/30/22 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 Relationship Specialty [place] [address] [place] [address] PCP - General Family Medicine 07/09/12 Jacob Sharp 84144 [facility] [address] Referring 04/30/22 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 Relationship Specialty [place] [address] [place] [address] PCP - General Family Medicine 07/09/12 Jacob Sharp 66125 [place] [address] Referring 04/30/22 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 Relationship Specialty [place] [address] [place] [address] PCP - General Family Medicine 07/09/12 Jacob Sharp 15421 [place] [address] Referring 04/30/22 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 Relationship Specialty [place] [address] [place] [address] PCP - General Family Medicine 07/09/12 Jacob Sharp [address]66 [facility] [address] Referring 04/30/22 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 Relationship Specialty Start Date End Date Reynold Moore MD [address] [place] [address] PCP - General Family Medicine 08/15/15 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 Relationship Specialty [place] [address] [place] [address] PCP - General Family Medicine 07/09/12 Jacob Sharp [address] [facility] [address] Referring 04/30/22 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 Relationship Specialty [place] [address] [place] [address] PCP - General Family Medicine 07/09/12 Jacob Sharp [address]111 [facility] [address] Referring 04/30/22 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 Relationship Specialty [place] [address] [place] [address] PCP - General Family Medicine 07/09/12 Jacob Sharp [address]40 [facility] [address] Referring 04/30/22 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 Relationship Specialty [place] [address] [facility] [place] [address] PCP - General Family Medicine 07/09/12 Jacob Sharp [address] [facility] [place] [address] Referring 04/30/22 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 Relationship Specialty [place] [address] [place] [address] PCP - General Family Medicine 07/09/12 Jacob Sharp [address] [facility] [address] Referring 04/30/22 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 Relationship Specialty [place] [address] [place] [address] PCP - General Family Medicine 07/09/12 Jacob Sharp 80998 [facility] [place] [address] Referring 04/30/22 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 Relationship Specialty [place] [address] [place] [address] PCP - General Family Medicine 07/09/12 Jacob Sharp [address] [facility] [place] [address] Referring 04/30/22 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 Relationship Specialty [place] [address] [facility] [place] [address] PCP - General Family Medicine 07/09/12 Jacob Sharp [address]109 [facility] [place] [address] Referring 04/30/22 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 Relationship Specialty [place] [address] [place] [address] PCP - General Family Medicine 07/09/12 Jacob Sharp [address] [place] [address] Referring 04/30/22 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 Relationship Specialty [place] [address] [place] [address] PCP - General Family Medicine 07/09/12 Jacob Sharp [address] [place] [address] Referring 04/30/22 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 Relationship Specialty [place] [address] [place] [address] PCP - General Family Medicine 07/09/12 Jacob Sharp [address] [place] [address] Referring 04/30/22 Team Status: Active Member Role Status Norberto Pardo II MD Primary Care Provider Active Skip Soto , Emergency Provider Active Tavares Prince MD Admit Provider, Attending Provider Active Jarred Begum MD Other Provider Active 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 Relationship Specialty [place] [address] [place] [address] PCP - General Family Medicine 07/09/12 Jacob Sharp [address] [place] [address] Referring 04/30/22 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 Relationship Specialty [place] [address] [place] [address] PCP - General Family Medicine 07/09/12 Jacob Sharp [address]99 [place] [address] Referring 04/30/22 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 Relationship Specialty [place] [address] [place] [address] PCP - General Family Medicine 07/09/12 Jacob Sharp [address]82 [place] [address] Referring 04/30/[address] [place] [address], [place] [address] Registered Dietitian Nutrition 06/24/23 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 Relationship Specialty [place] [address] [place] [address] PCP - General Family Medicine 07/09/12 Jacob Sharp [address]286 [place] [address] Referring 04/30/[address] [place] [address] Registered Dietitian Nutrition 06/24/23 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 Relationship Specialty [place] [address] [place] [address] PCP - General Family Medicine 07/09/12 Jacob Sharp 12603 [place] [address] Referring 04/30/[address] [place] [address] Registered Dietitian Nutrition 06/24/23 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 Relationship Specialty [place] [address] [place] [address] PCP - General Family Medicine 07/09/12 Jacob Sharp [address]135 [facility] [place] [address] Referring 04/30/[address] [place] [address] Registered Dietitian Nutrition 06/24/23 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 Relationship Specialty [place] [address] [place] [address] PCP - General Family Medicine 07/09/12 Jacob Sharp [address]85 [place] [address] Referring 04/30/[address] [place] [address] Registered Dietitian Nutrition 06/24/23 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 Relationship Specialty [place] [address] [place] [address] PCP - General Family Medicine 07/09/12 Jacob Sharp [address]308 [place] [address] Referring 04/30/[address] [place] [address] Registered Dietitian Nutrition 06/24/23 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 Relationship Specialty [place] [address] [place] [address] PCP - General Family Medicine 07/09/12 Jacob Sharp [address]99 [facility] [address] Referring 04/30/[address], [place] [address] Registered Dietitian Nutrition 06/24/23 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 Relationship Specialty [place] [address] [place] [address] PCP - General Family Medicine 07/09/12 Jacob Sharp [address]00 [facility] [address] Referring 04/30/[address] [place] [address] Registered Dietitian Nutrition 06/24/23 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 Relationship Specialty [place] [address] [place] [address] PCP - General Family Medicine 07/09/12 Jacob Sharp [address]67 [facility] [address] Referring 04/30/[address] [place] [address] Registered Dietitian Nutrition 06/24/23 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 Relationship Specialty [place] [address] [place] [address] PCP - General Family Medicine 07/09/12 Jacob Sharp [address]284 [place] [address] Referring 04/30/[address], [place] [address] Registered Dietitian Nutrition 06/24/23 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 Relationship Specialty [place] [address] [place] [address] PCP - General Family Medicine 07/09/12 Jacob Sharp [address] [place] [address] Referring 04/30/[address] [place] [address] Registered Dietitian Nutrition 06/24/23 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 Relationship Specialty [place] [address] [place] [address] PCP - General Family Medicine 07/09/12 Jacob Sharp [address] [place] [address] Referring 04/30/[address] [place] [address] Registered Dietitian Nutrition 06/24/23 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 Relationship Specialty [place] [address] [place] [address] PCP - General Family Medicine 07/09/12 Jacob Sharp [address] [place] [address] Referring 04/30/[address] [place] [address] Registered Dietitian Nutrition 06/24/23 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 Relationship Specialty [place] [address] [place] [address] PCP - General Family Medicine 07/09/12 Jacob Sharp [address] [place] [address] Referring 04/30/[address] [place] [address] Registered Dietitian Nutrition 06/24/23 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 Relationship Specialty [place] [address] [place] [address] PCP - General Family Medicine 07/09/12 Jacob Sharp [address]455 [place] [address] Referring 04/30/[address] [place] [address] Registered Dietitian Nutrition 06/24/23 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 Relationship Specialty [place] [address] [place] [address] PCP - General Family Medicine 07/09/12 Jacob Sharp [address]89[address] [place] [address] Referring 04/30/[address], [place] [address] Registered Dietitian Nutrition 06/24/23 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 Relationship Specialty [place] [address] [place] [address] PCP - General Family Medicine 07/09/12 Jacob Sharp [address]23 [place] [address] Referring 04/30/[address] [place] [address] Registered Dietitian Nutrition 06/24/23 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 Relationship Specialty [place] [address] [place] [address] PCP - General Family Medicine 07/09/12 Jacob Sharp [address] [place] [address] Referring 04/30/[address] [place] [address] Registered Dietitian Nutrition 06/24/23 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 Relationship Specialty [place] [address] [place] [address] PCP - General Family Medicine 07/09/12 Jacob Sharp [address] [place] [address] Referring 04/30/[address] [place] [address] Registered Dietitian Nutrition 06/24/[address] [place] [address] Registered Dietitian Nutrition 08/27/23 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 Relationship Specialty [place] [address] [place] [address] PCP - General Family Medicine 07/09/12 Jacob Sharp [address] [place] [address] Referring 04/30/[address] [place] [address] Registered Dietitian Nutrition 06/24/[address] [place] [address] Registered Dietitian Nutrition 08/27/23 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 Relationship Specialty [place] [address] [place] [address] PCP - General Family Medicine 07/09/12 Jacob Sharp [address] [place] [address] Referring 04/30/[address], [place] [address] Registered Dietitian Nutrition 06/24/[address] [place] [address] Registered Dietitian Nutrition 08/27/23 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 Relationship Specialty Start Date End Date Dania Pardo II, MD [address] [facility] [address] [place] [address] PCP - General Internal Medicine 10/06/23 Jacob Sharp [address] [place] [address] Referring 04/30/[address], [place] [address] Registered Dietitian Nutrition 06/24/[address] [place] [address] Registered Dietitian Nutrition 08/27/23 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 Relationship Specialty Start Date End Date Dania Pardo II, MD [address] [facility] [address] [place] [address] PCP - General Internal Medicine 10/06/23 Jacob Sharp [address] [place] [address] Referring 04/30/[address] [place] [address] Registered Dietitian Nutrition 06/24/[address] [place], [place] [address] Registered Dietitian Nutrition 08/27/23 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 Relationship Specialty Start Date End Date Dania Pardo II, MD [address] [facility] [address] [place] [address] PCP - General Internal Medicine 10/06/23 Jacob Sharp [id number] [place] [address] Referring 04/30/[address] [place] [address] Registered Dietitian Nutrition 06/24/[address] [place], [place] [address] Registered Dietitian Nutrition 08/27/23 Team Status: Active Member Role Status Dates Dania Pardo II MD Primary Care Provider Active Start: October 08, 2023 Amber Johnston , [employer]ER Emergency Provider Active Start: October 08, 2023 Cruz Garcia DO Admit Provider, Ot her Provider Active Start: October 08, 2023 Carolyn Vang MD Attending Provider, Other Provider Active Start: October 08, 2023 Negro Magana MD Other Provider Active Start: October 08, 2023 David Bejarano MD Admit Provider, A ttending Provider Active Start: October 08, 2023 End: October 23, 2023 Team Status: Active Member Role Status Dates Dania Pardo II MD Primary Care Provider Active Start: October 23, 2023 Amber Johnston , [employer]ER Emergency Provider Active Start: October 23, 2023 Carolyn Vang MD Other Provider Active Start: Oct Negro Magana MD Attending Provider, Other Provider Active Start: October 23, 2023 Stepan Fuentes MD Other Provider Active Start: October 23, 2023 David Bejarano MD Admit Provider, O ther Provider Active Start: October 23, 2023 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 Relationship Specialty Start Date End Date Dania Pardo MD 112 [facility] 110 [place] [address] PCP - General Internal Medicine 02/15/23 [place] [address] [place] [id number] PCP - [place] Commercial 09/14/23 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 Relationship Specialty Start Date End Date Dania Pardo MD 112 [facility] [address] [place] [address] PCP - General Internal Medicine 02/15/23 [place] [address] [place] [id number] PCP - [place] Commercial 09/14/23 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 Relationship Specialty Start Date End Date Dania Pardo II, MD [address] [facility] [address] [place] [address] PCP - General Internal Medicine 10/06/23 [facility] [address] [place] [address] Referring 04/30/[address], [place] [address] Registered Dietitian Nutrition 06/24/[address] [place] [address] Registered Dietitian Nutrition 08/27/23 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 Relationship Specialty Start Date End Date Dania Pardo II, MD [address] [place] [address] PCP - General Internal Medicine 10/06/23 [place] [id number] [place] [address] Referring 04/30/[address] [place] [address] Registered Dietitian Nutrition 06/24/[address] [place] [address] Registered Dietitian Nutrition 08/27/23 Team Status: Inactive Member Role Status Dates Daina Pardo II MD Primary Care Provider Active Start: October 28, 2023 End: October 28, 2023 Amber Johnston APRN Emergency Provider Active Start: October 28, 2023 End: October 28, 2023 Team Status: Inactive Member Role Status Dates Dania Pardo II MD Primary Care Provider Active Start: November 04, 2023 End: November 04, 2023 Adriana Pearce DO RES Active Star t: November 04, 2023 End: November 04, 2023 Ro Guillaume DO Emergency Provider Active St art: November 04, 2023 End: November 04, 2023 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 Relationship Specialty Start Date End Date Dania Pardo II, MD [address] [facility] [address] [place] [address] PCP - General Internal Medicine 10/06/23 Jacob Sharp [address] [place] [address] Referring 04/30/[address] [place] [address] Registered Dietitian Nutrition 06/24/[address] [place], [place] [id number] Registered Dietitian Nutrition 08/27/23 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 Relationship Specialty Start Date End Date Dania Padro II, MD [address] [facility] [address] [place] [address] PCP - General Internal Medicine 10/06/23 Jacob Sharp [address] [place] [address] Referring 04/30/[address] [place] [address] Registered Dietitian Nutrition 06/24/[address] [place] [address] Registered Dietitian Nutrition 08/27/23 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 Relationship Specialty Start Date End Date Dania Pardo II, MD [address] [facility] [address] [place] [address] PCP - General Internal Medicine 10/06/23 Jacob Sharp [address] [place], [place] [id number] Referring 04/30/[address] [place] [address] Registered Dietitian Nutrition 06/24/[address] [place] [address] Registered Dietitian Nutrition 08/27/23 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 Relationship Specialty Start Date End Date Skylar Coffey APRN-ALEXEI [address] [place] [address] PCP - General Internal Medicine 11/18/23 Source Comments (unrecognize d section and content) In the event this informatio n is protected by the Federal Confidentiality of Alcohol and Drug Abuse Patient Records regulations: The Federal rules restrict any use of the information to criminally investigate or prosecute any alcohol or drug abuse patient.[facility] the event this information is protected by the Federal Confidentiality of Alcohol and Drug Abuse Patient Records regulations: The Federal rules restrict any use of the information to criminally investigate or prosecute any alcohol or drug abuse patient.[facility] Center[facility] the event this information is protected by the Federal Confidentiality of Alcohol and Drug Abuse Patient Records regulations: The Federal rules restrict any use of the information to criminally investigate or prosecute any alcohol or drug abuse patient.[facility] Center[facility] the event this information is protected by the Federal Confidentiality of Alcohol and Drug Abuse Patient Records regulations: The Federal rules restrict any use of the information to criminally investigate or prosecute any alcohol or drug abuse patient.[facility] CenterIn the event this information is protected by the Federal Confidentiality of Alcohol and Drug Abuse Patient Records regulations: The Federal rules restrict any use of the information to criminally investigate or prosecute any alcohol or drug abuse patient.[facility] CenterIn the event this information is protected by the Federal Confidentiality of Alcohol and Drug Abuse Patient Records regulations: The Federal rules restrict any use of the information to criminally investigate or prosecute any alcohol or drug abuse patient.[facility] CenterIn the event this information is protected by the Federal Confidentiality of Alcohol and Drug Abuse Patient Records regulations: The Federal rules restrict any use of the information to criminally investigate or prosecute any alcohol or drug abuse patient.[facility] CenterIn the event this information is protected by the Federal Confidentiality of Alcohol and Drug Abuse Patient Records regulations: The Federal rules restrict any use of the information to criminally investigate or prosecute any alcohol or drug abuse patient.[facility] CenterIn the event this information is protected by the Federal Confidentiality of Alcohol and Drug Abuse Patient Records regulations: The Federal rules restrict any use of the information to criminally investigate or prosecute any alcohol or drug abuse patient.[facility] CenterIn the event this information is protected by the Federal Confidentiality of Alcohol and Drug Abuse Patient Records regulations: The Federal rules restrict any use of the information to criminally investigate or prosecute any alcohol or drug abuse patient.[facility] CenterIn the event this information is protected by the Federal Confidentiality of Alcohol and Drug Abuse Patient Records regulations: The Federal rules restrict any use of the information to criminally investigate or prosecute any alcohol or drug abuse patient.[facility] CenterIn the event this information is protected by the Federal Confidentiality of Alcohol and Drug Abuse Patient Records regulations: The Federal rules restrict any use of the information to criminally investigate or prosecute any alcohol or drug abuse patient.[facility] CenterIn the event this information is protected by the Federal Confidentiality of Alcohol and Drug Abuse Patient Records regulations: The Federal rules restrict any use of the information to criminally investigate or prosecute any alcohol or drug abuse patient.[facility] CenterIn the event this information is protected by the Federal Confidentiality of Alcohol and Drug Abuse Patient Records regulations: The Federal rules restrict any use of the information to criminally investigate or prosecute any alcohol or drug abuse patient.[facility] CenterIn the event this information is protected by the Federal Confidentiality of Alcohol and Drug Abuse Patient Records regulations: The Federal rules restrict any use of the information to criminally investigate or prosecute any alcohol or drug abuse patient.[facility] CenterIn the event this information is protected by the Federal Confidentiality of Alcohol and Drug Abuse Patient Records regulations: The Federal rules restrict any use of the information to criminally investigate or prosecute any alcohol or drug abuse patient.[facility] CenterIn the event this information is protected by the Federal Confidentiality of Alcohol and Drug Abuse Patient Records regulations: The Federal rules restrict any use of the information to criminally investigate or prosecute any alcohol or drug abuse patient.[facility] CenterIn the event this information is protected by the Federal Confidentiality of Alcohol and Drug Abuse Patient Records regulations: The Federal rules restrict any use of the information to criminally investigate or prosecute any alcohol or drug abuse patient.[facility] CenterIn the event this information is protected by the Federal Confidentiality of Alcohol and Drug Abuse Patient Records regulations: The Federal rules restrict any use of the information to criminally investigate or prosecute any alcohol or drug abuse patient.[facility] CenterIn the event this information is protected by the Federal Confidentiality of Alcohol and Drug Abuse Patient Records regulations: The Federal rules restrict any use of the information to criminally investigate or prosecute any alcohol or drug abuse patient.[facility] CenterIn the event this information is protected by the Federal Confidentiality of Alcohol and Drug Abuse Patient Records regulations: The Federal rules restrict any use of the information to criminally investigate or prosecute any alcohol or drug abuse patient.[facility] CenterIn the event this information is protected by the Federal Confidentiality of Alcohol and Drug Abuse Patient Records regulations: The Federal rules restrict any use of the information to criminally investigate or prosecute any alcohol or drug abuse patient.[facility] CenterIn the event this information is protected by the Federal Confidentiality of Alcohol and Drug Abuse Patient Records regulations: The Federal rules restrict any use of the information to criminally investigate or prosecute any alcohol or drug abuse patient.[facility] CenterIn the event this information is protected by the Federal Confidentiality of Alcohol and Drug Abuse Patient Records regulations: The Federal rules restrict any use of the information to criminally investigate or prosecute any alcohol or drug abuse patient.[facility] CenterIn the event this information is protected by the Federal Confidentiality of Alcohol and Drug Abuse Patient Records regulations: The Federal rules restrict any use of the information to criminally investigate or prosecute any alcohol or drug abuse patient.[facility] CenterIn the event this information is protected by the Federal Confidentiality of Alcohol and Drug Abuse Patient Records regulations: The Federal rules restrict any use of the information to criminally investigate or prosecute any alcohol or drug abuse patient.[facility] CenterIn the event this information is protected by the Federal Confidentiality of Alcohol and Drug Abuse Patient Records regulations: The Federal rules restrict any use of the information to criminally investigate or prosecute any alcohol or drug abuse patient.[facility] CenterIn the event this information is protected by the Federal Confidentiality of Alcohol and Drug Abuse Patient Records regulations: The Federal rules restrict any use of the information to criminally investigate or prosecute any alcohol or drug abuse patient.[facility] CenterIn the event this information is protected by the Federal Confidentiality of Alcohol and Drug Abuse Patient Records regulations: The Federal rules restrict any use of the information to criminally investigate or prosecute any alcohol or drug abuse patient.[facility] CenterIn the event this information is protected by the Federal Confidentiality of Alcohol and Drug Abuse Patient Records regulations: The Federal rules restrict any use of the information to criminally investigate or prosecute any alcohol or drug abuse patient.[facility] CenterIn the event this information is protected by the Federal Confidentiality of Alcohol and Drug Abuse Patient Records regulations: The Federal rules restrict any use of the information to criminally investigate or prosecute any alcohol or drug abuse patient.[facility] CenterIn the event this information is protected by the Federal Confidentiality of Alcohol and Drug Abuse Patient Records regulations: The Federal rules restrict any use of the information to criminally investigate or prosecute any alcohol or drug abuse patient.[facility] CenterIn the event this information is protected by the Federal Confidentiality of Alcohol and Drug Abuse Patient Records regulations: The Federal rules restrict any use of the information to criminally investigate or prosecute any alcohol or drug abuse patient.[facility] CenterIn the event this information is protected by the Federal Confidentiality of Alcohol and Drug Abuse Patient Records regulations: The Federal rules restrict any use of the information to criminally investigate or prosecute any alcohol or drug abuse patient.[facility] CenterIn the event this information is protected by the Federal Confidentiality of Alcohol and Drug Abuse Patient Records regulations: The Federal rules restrict any use of the information to criminally investigate or prosecute any alcohol or drug abuse patient.[facility] CenterIn the event this information is protected by the Federal Confidentiality of Alcohol and Drug Abuse Patient Records regulations: The Federal rules restrict any use of the information to criminally investigate or prosecute any alcohol or drug abuse patient.[facility] CenterIn the event this information is protected by the Federal Confidentiality of Alcohol and Drug Abuse Patient Records regulations: The Federal rules restrict any use of the information to criminally investigate or prosecute any alcohol or drug abuse patient.[facility] CenterIn the event this information is protected by the Federal Confidentiality of Alcohol and Drug Abuse Patient Records regulations: The Federal rules restrict any use of the information to criminally investigate or prosecute any alcohol or drug abuse patient.[facility] CenterIn the event this information is protected by the Federal Confidentiality of Alcohol and Drug Abuse Patient Records regulations: The Federal rules restrict any use of the information to criminally investigate or prosecute any alcohol or drug abuse patient.[facility] CenterIn the event this information is protected by the Federal Confidentiality of Alcohol and Drug Abuse Patient Records regulations: The Federal rules restrict any use of the information to criminally investigate or prosecute any alcohol or drug abuse patient.[facility] CenterIn the event this information is protected by the Federal Confidentiality of Alcohol and Drug Abuse Patient Records regulations: The Federal rules restrict any use of the information to criminally investigate or prosecute any alcohol or drug abuse patient.[facility] CenterIn the event this information is protected by the Federal Confidentiality of Alcohol and Drug Abuse Patient Records regulations: The Federal rules restrict any use of the information to criminally investigate or prosecute any alcohol or drug abuse patient.[facility] CenterIn the event this information is protected by the Federal Confidentiality of Alcohol and Drug Abuse Patient Records regulations: The Federal rules restrict any use of the information to criminally investigate or prosecute any alcohol or drug abuse patient.[facility] CenterIn the event this information is protected by the Federal Confidentiality of Alcohol and Drug Abuse Patient Records regulations: The Federal rules restrict any use of the information to criminally investigate or prosecute any alcohol or drug abuse patient.[facility] CenterIn the event this information is protected by the Federal Confidentiality of Alcohol and Drug Abuse Patient Records regulations: The Federal rules restrict any use of the information to criminally investigate or prosecute any alcohol or drug abuse patient.[facility] CenterIn the event this information is protected by the Federal Confidentiality of Alcohol and Drug Abuse Patient Records regulations: The Federal rules restrict any use of the information to criminally investigate or prosecute any alcohol or drug abuse patient.[facility] CenterIn the event this information is protected by the Federal Confidentiality of Alcohol and Drug Abuse Patient Records regulations: The Federal rules restrict any use of the information to criminally investigate or prosecute any alcohol or drug abuse patient.[facility] CenterIn the event this information is protected by the Federal Confidentiality of Alcohol and Drug Abuse Patient Records regulations: The Federal rules restrict any use of the information to criminally investigate or prosecute any alcohol or drug abuse patient.[facility] CenterIn the event this information is protected by the Federal Confidentiality of Alcohol and Drug Abuse Patient Records regulations: The Federal rules restrict any use of the information to criminally investigate or prosecute any alcohol or drug abuse patient.[facility] CenterIn the event this information is protected by the Federal Confidentiality of Alcohol and Drug Abuse Patient Records regulations: The Federal rules restrict any use of the information to criminally investigate or prosecute any alcohol or drug abuse patient.[facility] CenterIn the event this information is protected by the Federal Confidentiality of Alcohol and Drug Abuse Patient Records regulations: The Federal rules restrict any use of the information to criminally investigate or prosecute any alcohol or drug abuse patient.[facility] CenterIn the event this information is protected by the Federal Confidentiality of Alcohol and Drug Abuse Patient Records regulations: The Federal rules restrict any use of the information to criminally investigate or prosecute any alcohol or drug abuse patient.[facility] CenterIn the event this information is protected by the Federal Confidentiality of Alcohol and Drug Abuse Patient Records regulations: The Federal rules restrict any use of the information to criminally investigate or prosecute any alcohol or drug abuse patient.[facility] CenterIn the event this information is protected by the Federal Confidentiality of Alcohol and Drug Abuse Patient Records regulations: The Federal rules restrict any use of the information to criminally investigate or prosecute any alcohol or drug abuse patient.[facility] CenterIn the event this information is protected by the Federal Confidentiality of Alcohol and Drug Abuse Patient Records regulations: The Federal rules restrict any use of the information to criminally investigate or prosecute any alcohol or drug abuse patient.[facility] CenterIn the event this information is protected by the Federal Confidentiality of Alcohol and Drug Abuse Patient Records regulations: The Federal rules restrict any use of the information to criminally investigate or prosecute any alcohol or drug abuse patient.[facility] CenterIn the event this information is protected by the Federal Confidentiality of Alcohol and Drug Abuse Patient Records regulations: The Federal rules restrict any use of the information to criminally investigate or prosecute any alcohol or drug abuse patient.[facility] CenterIn the event this information is protected by the Federal Confidentiality of Alcohol and Drug Abuse Patient Records regulations: The Federal rules restrict any use of the information to criminally investigate or prosecute any alcohol or drug abuse patient.[facility] CenterIn the event this information is protected by the Federal Confidentiality of Alcohol and Drug Abuse Patient Records regulations: The Federal rules restrict any use of the information to criminally investigate or prosecute any alcohol or drug abuse patient.[facility] CenterIn the event this information is protected by the Federal Confidentiality of Alcohol and Drug Abuse Patient Records regulations: The Federal rules restrict any use of the information to criminally investigate or prosecute any alcohol or drug abuse patient.[facility] CenterIn the event this information is protected by the Federal Confidentiality of Alcohol and Drug Abuse Patient Records regulations: The Federal rules restrict any use of the information to criminally investigate or prosecute any alcohol or drug abuse patient.[facility] CenterIn the event this information is protected by the Federal Confidentiality of Alcohol and Drug Abuse Patient Records regulations: The Federal rules restrict any use of the information to criminally investigate or prosecute any alcohol or drug abuse patient.[facility] CenterIn the event this information is protected by the Federal Confidentiality of Alcohol and Drug Abuse Patient Records regulations: The Federal rules restrict any use of the information to criminally investigate or prosecute any alcohol or drug abuse patient.[facility] CenterIn the event this information is protected by the Federal Confidentiality of Alcohol and Drug Abuse Patient Records regulations: The Federal rules restrict any use of the information to criminally investigate or prosecute any alcohol or drug abuse patient.[facility] CenterIn the event this information is protected by the Federal Confidentiality of Alcohol and Drug Abuse Patient Records regulations: The Federal rules restrict any use of the information to criminally investigate or prosecute any alcohol or drug abuse patient.[facility] CenterIn the event this information is protected by the Federal Confidentiality of Alcohol and Drug Abuse Patient Records regulations: The Federal rules restrict any use of the information to criminally investigate or prosecute any alcohol or drug abuse patient.[facility] CenterIn the event this information is protected by the Federal Confidentiality of Alcohol and Drug Abuse Patient Records regulations: The Federal rules restrict any use of the information to criminally investigate or prosecute any alcohol or drug abuse patient.[facility] CenterIn the event this information is protected by the Federal Confidentiality of Alcohol and Drug Abuse Patient Records regulations: The Federal rules restrict any use of the information to criminally investigate or prosecute any alcohol or drug abuse patient.[facility] CenterIn the event this information is protected by the Federal Confidentiality of Alcohol and Drug Abuse Patient Records regulations: The Federal rules restrict any use of the information to criminally investigate or prosecute any alcohol or drug abuse patient.[facility] CenterIn the event this information is protected by the Federal Confidentiality of Alcohol and Drug Abuse Patient Records regulations: The Federal rules restrict any use of the information to criminally investigate or prosecute any alcohol or drug abuse patient.[facility] CenterIn the event this information is protected by the Federal Confidentiality of Alcohol and Drug Abuse Patient Records regulations: The Federal rules restrict any use of the information to criminally investigate or prosecute any alcohol or drug abuse patient.[facility] CenterIn the event this information is protected by the Federal Confidentiality of Alcohol and Drug Abuse Patient Records regulations: The Federal rules restrict any use of the information to criminally investigate or prosecute any alcohol or drug abuse patient.[facility] CenterIn the event this information is protected by the Federal Confidentiality of Alcohol and Drug Abuse Patient Records regulations: The Federal rules restrict any use of the information to criminally investigate or prosecute any alcohol or drug abuse patient.[facility] CenterIn the event this information is protected by the Federal Confidentiality of Alcohol and Drug Abuse Patient Records regulations: The Federal rules restrict any use of the information to criminally investigate or prosecute any alcohol or drug abuse patient.[facility] CenterIn the event this information is protected by the Federal Confidentiality of Alcohol and Drug Abuse Patient Records regulations: The Federal rules restrict any use of the information to criminally investigate or prosecute any alcohol or drug abuse patient.[facility] CenterIn the event this information is protected by the Federal Confidentiality of Alcohol and Drug Abuse Patient Records regulations: The Federal rules restrict any use of the information to criminally investigate or prosecute any alcohol or drug abuse patient.[facility]In the event this information is protected by the Federal Confidentiality of Alcohol and Drug Abuse Patient Records regulations: The Federal rules restrict any use of the information to criminally investigate or prosecute any alcohol or drug abuse patient.[facility] CenterIn the event this information is protected by the Federal Confidentiality of Alcohol and Drug Abuse Patient Records regulations: The Federal rules restrict any use of the information to criminally investigate or prosecute any alcohol or drug abuse patient.[facility] CenterIn the event this information is protected by the Federal Confidentiality of Alcohol and Drug Abuse Patient Records regulations: The Federal rules restrict any use of the information to criminally investigate or prosecute any alcohol or drug abuse patient.[facility] CenterIn the event this information is protected by the Federal Confidentiality of Alcohol and Drug Abuse Patient Records regulations: The Federal rules restrict any use of the information to criminally investigate or prosecute any alcohol or drug abuse patient.[facility] CenterIn the event this information is protected by the Federal Confidentiality of Alcohol and Drug Abuse Patient Records regulations: The Federal rules restrict any use of the information to criminally investigate or prosecute any alcohol or drug abuse patient.[facility] CenterIn the event this information is protected by the Federal Confidentiality of Alcohol and Drug Abuse Patient Records regulations: The Federal rules restrict any use of the information to criminally investigate or prosecute any alcohol or drug abuse patient.[facility] CenterIn the event this information is protected by the Federal Confidentiality of Alcohol and Drug Abuse Patient Records regulations: The Federal rules restrict any use of the information to criminally investigate or prosecute any alcohol or drug abuse patient.[facility] CenterIn the event this information is protected by the Federal Confidentiality of Alcohol and Drug Abuse Patient Records regulations: The Federal rules restrict any use of the information to criminally investigate or prosecute any alcohol or drug abuse patient.[facility] CenterIn the event this information is protected by the Federal Confidentiality of Alcohol and Drug Abuse Patient Records regulations: The Federal rules restrict any use of the information to criminally investigate or prosecute any alcohol or drug abuse patient.[facility] CenterIn the event this information is protected by the Federal Confidentiality of Alcohol and Drug Abuse Patient Records regulations: The Federal rules restrict any use of the information to criminally investigate or prosecute any alcohol or drug abuse patient.[facility] CenterIn the event this information is protected by the Federal Confidentiality of Alcohol and Drug Abuse Patient Records regulations: The Federal rules restrict any use of the information to criminally investigate or prosecute any alcohol or drug abuse patient.[facility] CenterIn the event this information is protected by the Federal Confidentiality of Alcohol and Drug Abuse Patient Records regulations: The Federal rules restrict any use of the information to criminally investigate or prosecute any alcohol or drug abuse patient.[facility] CenterIn the event this information is protected by the Federal Confidentiality of Alcohol and Drug Abuse Patient Records regulations: The Federal rules restrict any use of the information to criminally investigate or prosecute any alcohol or drug abuse patient.[facility] CenterIn the event this information is protected by the Federal Confidentiality of Alcohol and Drug Abuse Patient Records regulations: The Federal rules restrict any use of the information to criminally investigate or prosecute any alcohol or drug abuse patient.[facility] CenterIn the event this information is protected by the Federal Confidentiality of Alcohol and Drug Abuse Patient Records regulations: The Federal rules restrict any use of the information to criminally investigate or prosecute any alcohol or drug abuse patient.[facility] CenterIn the event this information is protected by the Federal Confidentiality of Alcohol and Drug Abuse Patient Records regulations: The Federal rules restrict any use of the information to criminally investigate or prosecute any alcohol or drug abuse patient.[facility] CenterIn the event this information is protected by the Federal Confidentiality of Alcohol and Drug Abuse Patient Records regulations: The Federal rules restrict any use of the information to criminally investigate or prosecute any alcohol or drug abuse patient.[facility] CenterIn the event this information is protected by the Federal Confidentiality of Alcohol and Drug Abuse Patient Records regulations: The Federal rules restrict any use of the information to criminally investigate or prosecute any alcohol or drug abuse patient.[facility] CenterIn the event this information is protected by the Federal Confidentiality of Alcohol and Drug Abuse Patient Records regulations: The Federal rules restrict any use of the information to criminally investigate or prosecute any alcohol or drug abuse patient.[facility] CenterIn the event this information is protected by the Federal Confidentiality of Alcohol and Drug Abuse Patient Records regulations: The Federal rules restrict any use of the information to criminally investigate or prosecute any alcohol or drug abuse patient.[facility] CenterIn the event this information is protected by the Federal Confidentiality of Alcohol and Drug Abuse Patient Records regulations: The Federal rules restrict any use of the information to criminally investigate or prosecute any alcohol or drug abuse patient.[facility] CenterIn the event this information is protected by the Federal Confidentiality of Alcohol and Drug Abuse Patient Records regulations: The Federal rules restrict any use of the information to criminally investigate or prosecute any alcohol or drug abuse patient.[facility] CenterIn the event this information is protected by the Federal Confidentiality of Alcohol and Drug Abuse Patient Records regulations: The Federal rules restrict any use of the information to criminally investigate or prosecute any alcohol or drug abuse patient.[facility] CenterIn the event this information is protected by the Federal Confidentiality of Alcohol and Drug Abuse Patient Records regulations: The Federal rules restrict any use of the information to criminally investigate or prosecute any alcohol or drug abuse patient.[facility] CenterIn the event this information is protected by the Federal Confidentiality of Alcohol and Drug Abuse Patient Records regulations: The Federal rules restrict any use of the information to criminally investigate or prosecute any alcohol or drug abuse patient.[facility] CenterIn the event this information is protected by the Federal Confidentiality of Alcohol and Drug Abuse Patient Records regulations: The Federal rules restrict any use of the information to criminally investigate or prosecute any alcohol or drug abuse patient.[facility] CenterIn the event this information is protected by the Federal Confidentiality of Alcohol and Drug Abuse Patient Records regulations: The Federal rules restrict any use of the information to criminally investigate or prosecute any alcohol or drug abuse patient.[facility] CenterIn the event this information is protected by the Federal Confidentiality of Alcohol and Drug Abuse Patient Records regulations: The Federal rules restrict any use of the information to criminally investigate or prosecute any alcohol or drug abuse patient.[facility] CenterIn the event this information is protected by the Federal Confidentiality of Alcohol and Drug Abuse Patient Records regulations: The Federal rules restrict any use of the information to criminally investigate or prosecute any alcohol or drug abuse patient.[facility] CenterIn the event this information is protected by the Federal Confidentiality of Alcohol and Drug Abuse Patient Records regulations: The Federal rules restrict any use of the information to criminally investigate or prosecute any alcohol or drug abuse patient.[facility] CenterIn the event this information is protected by the Federal Confidentiality of Alcohol and Drug Abuse Patient Records regulations: The Federal rules restrict any use of the information to criminally investigate or prosecute any alcohol or drug abuse patient.[facility] CenterIn the event this information is protected by the Federal Confidentiality of Alcohol and Drug Abuse Patient Records regulations: The Federal rules restrict any use of the information to criminally investigate or prosecute any alcohol or drug abuse patient.[facility] CenterIn the event this information is protected by the Federal Confidentiality of Alcohol and Drug Abuse Patient Records regulations: The Federal rules restrict any use of the information to criminally investigate or prosecute any alcohol or drug abuse patient.[facility] CenterIn the event this information is protected by the Federal Confidentiality of Alcohol and Drug Abuse Patient Records regulations: The Federal rules restrict any use of the information to criminally investigate or prosecute any alcohol or drug abuse patient.[facility] CenterIn the event this information is protected by the Federal Confidentiality of Alcohol and Drug Abuse Patient Records regulations: The Federal rules restrict any use of the information to criminally investigate or prosecute any alcohol or drug abuse patient.[facility] CenterIn the event this information is protected by the Federal Confidentiality of Alcohol and Drug Abuse Patient Records regulations: The Federal rules restrict any use of the information to criminally investigate or prosecute any alcohol or drug abuse patient.[facility] CenterIn the event this information is protected by the Federal Confidentiality of Alcohol and Drug Abuse Patient Records regulations: The Federal rules restrict any use of the information to criminally investigate or prosecute any alcohol or drug abuse patient.[facility] CenterIn the event this information is protected by the Federal Confidentiality of Alcohol and Drug Abuse Patient Records regulations: The Federal rules restrict any use of the information to criminally investigate or prosecute any alcohol or drug abuse patient.[facility] CenterIn the event this information is protected by the Federal Confidentiality of Alcohol and Drug Abuse Patient Records regulations: The Federal rules restrict any use of the information to criminally investigate or prosecute any alcohol or drug abuse patient.[facility] CenterIn the event this information is protected by the Federal Confidentiality of Alcohol and Drug Abuse Patient Records regulations: The Federal rules restrict any use of the information to criminally investigate or prosecute any alcohol or drug abuse patient.[facility] CenterIn the event this information is protected by the Federal Confidentiality of Alcohol and Drug Abuse Patient Records regulations: The Federal rules restrict any use of the information to criminally investigate or prosecute any alcohol or drug abuse patient.[facility] CenterIn the event this information is protected by the Federal Confidentiality of Alcohol and Drug Abuse Patient Records regulations: The Federal rules restrict any use of the information to criminally investigate or prosecute any alcohol or drug abuse patient.[facility] CenterIn the event this information is protected by the Federal Confidentiality of Alcohol and Drug Abuse Patient Records regulations: The Federal rules restrict any use of the information to criminally investigate or prosecute any alcohol or drug abuse patient.[facility] CenterIn the event this information is protected by the Federal Confidentiality of Alcohol and Drug Abuse Patient Records regulations: The Federal rules restrict any use of the information to criminally investigate or prosecute any alcohol or drug abuse patient.[facility] Goals (unrecognized section and content) Goals may be documented in a n alternate section FOR RECORDS PERTAINING TO PATIENTS WHO ARE OR HAVE BEEN ENROLLED IN A CHEMICAL DEPENDENCY/SUBSTANCEABUSE PROGRAM, SOME INFORMATION MAY BE OMITTED. This clinical summary was aggregated from multiple sources. Caution should be exercised in using it in the provision of clinical care. This summary normalizes information from multiple sources, and as a consequence, information in this document may materially change the coding, format and clinical context of patient data. In addition, data may be omitted in some cases. CLINICAL DECISIONS SHOULD BE BASED ON THE PRIMARY CLINICAL RECORDS. [facility]. provides no warranty or guarantee of the accuracy or completeness of information in this document.
== END 2023-11-20 09:31 | disposition home or self-care (01) ==
LOC: RAD 09:31
PROVIDERS: PCP Internal Medicine; Visit Provider Family Medicine
DX: J15.9 Unspecified bacterial pneumonia (principal)
CPT/HCPCS: 71046

== ENCOUNTER 2023-11-20 09:49 | Outpatient (OUT) | payer BC, SELFPAY ==
--- NOTE | 2023-11-20 09:57 | US_ITS ---
The [address] [address] Patient Name: DAWSON DÍAZ MRN: [id number] date: 1975 Sex: F Assigned Patient Location: [place] Current Patient Location: RAD Accession/Order Number: [id number] Exam Date: 11/20/2023 10:10 Report Date: 11/20/2023 12:35 At the request of: ELISABET PÉREZ Procedure: US thyroid EXAM: US thyroid HISTORY: History of thyroid mass with surgical removal. The patient has had right-sided neck pain for the past 2 weeks. COMPARISON: None. TECHNIQUE: Multiple sonographic images of the thyroid gland were obtained, supplemented with Doppler. FINDINGS: The right lobe measures 5.3 x 1.1 x 1.4 cm. Homogeneous echoes are noted throughout. Along the inferior aspect there is a solid hypoechoic nodule measuring 0.4 x 0.3 x 0.3 cm. No other nodule is identified in the right lobe. The left lobe measures 4.4 x 1.1 x 1.4 cm. All images echoes are noted throughout. There is no evidence of a focal nodule within. The isthmus measures 2 mm in thickness. There is no evidence of a focal mass or abnormal fluid collection surrounding the gland. US/US thyroid IMPRESSION: The right lobe of the thyroid gland is mildly enlarged. There is a nodule in the inferior aspect of the right lobe which is considered TI RADS 4. Biopsy is not recommended at this time. Comparison with a previous study may be helpful in determining the chronicity of these findings. Follow-up study as clinically indicated. Electronically authenticated by: IVIS HERNÁNDEZ Date: 11/20/2023 12:35
== END 2023-11-20 09:50 | disposition home or self-care (01) ==
LOC: US 09:49
PROVIDERS: PCP Internal Medicine; Visit Provider Physician Assistant
DX: J15.9 Unspecified bacterial pneumonia (principal); Q89.2 Congenital malformations of other endocrine glands; E03.9 Hypothyroidism, unspecified
CPT/HCPCS: 71046; 76536

== ENCOUNTER 2024-10-04 10:47 | Outpatient (OUT) | payer BC, SELFPAY ==
--- NOTE | 2024-10-04 11:10 | XR_ITS ---
The [address] [address] Patient Name: DAWSON DÍAZ MRN: [id number] date: 1975 Sex: F Assigned Patient Location: [facility] Current Patient Location: [facility] Accession/Order Number: [id number] Exam Date: 10/04/2024 11:00 Report Date: 10/05/2024 00:02 At the request of: ROMMEL REMY Procedure: XR foot LT min 3V EXAM: XR Left Foot Complete, 3 or More Views CLINICAL INDICATION: Pain Of Toe Of Left Foot, Fall TECHNIQUE: Frontal, lateral and oblique views of the left foot. COMPARISON: No relevant prior studies available. FINDINGS: BONES/JOINTS: Unremarkable. No acute fracture. No dislocation. SOFT TISSUES: Soft tissue swelling is seen. No radiopaque foreign body. Plantar spurring is seen. XR/XR foot LT min 3V IMPRESSION: Soft tissue swelling is seen. No acute fracture. Electronically authenticated by: GISSELLE MEIER Date: 10/05/2024 00:02
== END 2024-10-04 10:48 | disposition home or self-care (01) ==
LOC: RAD 10:52
PROVIDERS: PCP Internal Medicine; Visit Provider Nurse Practitioner Family
DX: M79.675 Pain in left toe(s) (principal); W19.XXXA Unspecified fall, initial encounter; M25.475 Effusion, left foot
CPT/HCPCS: 73630

== ENCOUNTER 2025-03-28 09:03 | Outpatient (OUT) | payer BC, SELFPAY ==
--- OUTSIDE RECORDS SUMMARY | 2006-12-23 11:51 | XMS_ITS | Encounter Summary ---
Author Organization [facility] Address [address] [place] [address] Care Team Providers Care Hair Dryer Name Role Phone Unavailable Primary Care Provider Unavailabl e Source Comments In the event this information is protected by the Federal Confidentiality of Alcohol and Drug AbusePatient Records regulations: The Federal rules restrict any use of the information to criminally investigate or prosecute any alcohol or drug abuse patient.[facility] Encounter Details Date Type Department Care Team (Late st Contact Info) Description 12/23/2006 11:51 AM EDT Hospital Encounter [facility] Outpatient Services [address] [place] [address] [place] [address] [facility] [address] [place] [address] MATERNITY Social History Tobacco Use Types Packs/Day Years Used Date Smoking Tobacco: Never Smokeless Tobacco: Never Alcohol Use Standard Drinks/Week Comments Not Currently 0 (1 standard drink = 0.6 oz pur e alcohol) [facility] Utilities Answer Date Recorded In the past 12 months has e electric, gas, oil, or water company threatened to shut off services in your home? No 10/18/2024 AUDIT-C Answer Date Recorded Q1: How often [...] the money to buy more. Never true 02/29/20 25 Within the past 12 months, t he food you bought just didn't last and you didn't have money to get more. Never true 02/28/2025 PRAPARE - Transportation Answer Date Re corded In the past 12 months, has l ack of transportation kept you from medical appointments or from getting medications? No 12/2024 In the past 12 months, has l ack of transportation kept you from meetings, work, or from getting things needed for daily living? No 10/18/2024 Housing Stability Vital Sign Answer Luis Miguel [...] place to sleep or slept in a residential (including now)? No 02/16/2024 Housing Stability Vital Sign Answer Luis Miguel e Recorded In the last 12 months, was t here a time when you were not able to pay the mortgage or rent on time? No 10/18/2024 In the past 12 months, how m any times have you moved where you were living? 0 10/18/2024 At any time in the past 12 m [facility], were you homeless or living in a residential (including now)? No 10/18/2024 Area Deprivation Index Answer Date Reagan rded National Score (1-100), lower number is lower ri sk 63 03/05/2023 State Score (1-10), lower number is lower risk 4 03/05/2023 Data from: https://www.neighborhoodatlas.medicine.[facility].edu/. Last address used for calculation [address] [address] 03/05/2023 Comments No Sex [...] file Not on file Not on file COVID-19 Exposure Response Date Recorded In the last 10 days, have yo u been in contact with someone who was confirmed or suspected to have Coronavirus/COVID-19? No / Unsure 08/14/2022 3:09 PM EST documented as of this encounter Functional Status documented as of this encounter Plan of Treatment Upcoming Encounters Date Type Department Care Team (Latest Contact Info) Description 03/31/2025 11:00 AM EDT Office Visit General Surgery [address] [phone] Michael Mora PA-C [address] [phone] follow up- add on ok'd by Michael 04/07/2025 1:00 PM EDT [facility] [address] [phone] Agatha Kim PSYD [address] [phone] 04/19/2025 11:00 AM EDT [facility] [address] [phone] Joann Loera APRN.ELECTRICAL TESTER BATTERY [address] [place], [place] [phone] Cognitive movement issues 04/21/2025 8:30 AM EDT [facility] [address] [phone] Tiffany Banks, RD [address] [place] [address] f/u TF forula tolerance and hydration 05/29/2025 9:00 AM EDT [facility] Gastroenterology [address] [address] Johanna Martinez MD [facility] [address] [address] 3 month follow up 06/28/2025 10:00 AM EDT [facility] Neurology Pain [address] [place] [address] [place] [address] [place] [address] Follow up for pain documented as of this encounter Visit Diagnoses [...] COVID-19 Confirmed Comment:Anticipate 10 day isolation 04/12/2024 04/18/2024 0801/2024 8:51 PM EDT COVID-19 Rule-Out 04/18/2024 04/18/2024 04/18/2024 2:28 PM EDT COVID-19 Rule-Out 07/29/2024 07/29/2024 07/29/2024 7:20 PM EST documented as of this encounter
--- OUTSIDE RECORDS SUMMARY | 2007-01-11 05:56 | XMS_ITS | Encounter Summary ---
Author Organization [facility] Address [address] [place] [address] Care Team Providers Care Practice Assistant Name Role Phone Unavailable Primary Care Provider Unavailabl e Source Comments In the event this information is protected by the Federal Confidentiality of Alcohol and Drug AbusePatient Records regulations: The Federal rules restrict any use of the information to criminally investigate or prosecute any alcohol or drug abuse patient.[facility] Encounter Details Date Type Department Care Team (Latest Contact Info) Description 01/11/2007 5:56 AM EDT Hospital Encounter [facility] [address] [place] [address] [place] [address] [facility] [address] [place] [address] MATERNITY DIFFICULTY URINATING Social History Tobacco Use Types Packs/Day Years Used Date Smoking Tobacco: Never Smokeless Tobacco: Never Alcohol Use Standard Drinks/Week Comments Not Currently 0 (1 standard drink = 0.6 oz pur e alcohol) [facility] Utilities Answer Date Recorded In the [...] place to sleep or slept in a group home (including now)? No 02/16/2024 Housing Stability Vital [...] any time in the past 12 m [facility], were you homeless or living in a group home (including now)? No 10/18/2024 Area Deprivation Index Answer Date Reagan rded National Score (1-100), lower number is lower ri sk 63 03/05/2023 State Score (1-10), lower number is lower risk 4 03/05/2023 Data from: https://www.neighborhoodatlas.medicine.[facility].edu/. Last address used for calculation [address] [address] 03/05/2023 Comments No Sex [...] AM EDT Office Visit General Surgery [address] [place] [address] Michael Mora PA-C [address] [phone] follow up- add on ok'd by Michael 04/07/2025 1:00 PM EDT [facility] [address] [place] [address] Agatha Kim PSYD [address] [place], [place] [phone] 04/19/2025 11:00 AM EDT [facility] [address] [phone] Joann Loera APRN.INCLUSION TEACHER [address] [place], [place] [phone] Cognitive movement issues 04/21/2025 8:30 AM EDT [facility] [address] [phone] Tiffany Bnaks, RD [address] [place] [address] f/u TF forula tolerance and hydration 05/29/2025 9:00 AM EDT [facility] Gastroenterology [address] [place] [address] Johanna Martinez MD [facility] [address] [address] 3 month follow up 06/28/2025 10:00 AM EDT [facility] Neurology Pain [address] [phone] [place] [address] [place] [address] Follow up for pain documented as of this encounter Procedures Procedure Name Priority Date/Time Associated Diagnosis Comments GFR ESTIMATED 01/11/2007 8:01 AM EDT COMPREHENSIVE METABOLIC PANEL 01/11/2007 8:01 AM EDT GFR ESTIMATED 01/11/2007 6:51 AM EDT BASIC METABOLIC PANEL 01/11/2007 6:51 AM EDT BACTERIAL CULTURE, URINE 01/11/2007 6:42 AM EDT documented in this encounter Results * (ABNORMAL) GFR ESTIMATED (01/11/2007 8:01 AM EDT) Estimated GFR >60 eGFR Units of measure: mL/min/1.73 meters squared If the patient is , multiply the eGFR reported by 1.21. eGFR is derived from the 4 variable MDRD equation for glomerular filtration rate (GFR) based on a stable serum creatinine, gender, and age. According to KDOQI guidelines, an eGFR <60 mL/min/1.73m2 is sufficient to diagnose a patient with chronic kidney disease. [facility] 01/11/2007 8:01 AM EDT Juan Negro MD LABORATORY Final Resu lt Performing Organization Address City/[facility]/ZIP Co de Phone Number [facility] [address] [place] [address] * (ABNORMAL) COMP METABOLIC PANEL (01/11/2007 8:01 AM EDT) Calcium 9.0 8.4 - 10.1 mg/dL [facility] Glucose 100 70 - 105 mg/dL [facility] BUN 7 7 - 26 mg/dL [facility] Creatinine 0.5(L) 0.6 - 1.0 mg/dL [facility] Sodium 139 136 - 146 mmol/L [facility] Potassium 3.9 3.5 - 5.0 mmol/L [facility] Chloride 107(H) 98 - 106 mmol/L [facility] CO2 19(L) 22 - 29 mmol/L [facility] Anion Gap 13 5 - 20 mmol/L [facility] Protein, Total 5.7(L) 6.4 - 8.2 g/dL [facility] Albumin 2.7(L) 3.5 - 5.0 g/dL [facility] Bilirubin, Total 0.3 0.0 - 1.0 mg/dL [facility] Alkaline Phosphatase 103 35 - 174 U/L [facility] AST 14 Called to give result but told report will be viewed in the system by: BRAYAN AT 8:20AM.12/15. [place] [id number].(L) 15 - 47 U/L [facility] ALT 32 30 - 65 U/L [facility] 01/11/2007 8:01 AM EDT Juan Negro MD LABORATORY Edited Performing Organization Address [facility]/ZIP Co de Phone Number [facility] [address] [place] [address] * (ABNORMAL) GFR ESTIMATED (01/11/2007 6:51 AM EDT) Estimated GFR >60 eGFR Units of measure: mL/min/1.73 meters squared If the patient is , multiply the eGFR reported by 1.21. eGFR is derived from the 4 variable MDRD equation for glomerular filtration rate (GFR) based on a stable serum creatinine, gender, and age. According to KDOQI guidelines, an eGFR <60 mL/min/1.73m2 is sufficient to diagnose a patient with chronic kidney disease. [facility] 01/11/2007 6:51 AM EDT Juan Negro MD LABORATORY Final Resu lt Performing Organization Address [facility] Co de Phone Number [facility] [address] [place] [address] * (ABNORMAL) BASIC METABOLIC PNL (01/11/2007 6:51 AM EDT) Glucose 102 Called to give result but told report will be viewed in the system by: JENNIFER AT 725 [place] [id number] 70 - 105 mg/dL [facility] BUN 7 7 - 26 mg/dL [facility] Creatinine 0.5(L) 0.6 - 1.0 mg/dL [facility] Sodium 139 136 - 146 mmol/L [facility] Potassium 3.9 3.5 - 5.0 mmol/L [facility] Chloride 105 98 - 106 mmol/L [facility] CO2 20(L) 22 - 29 mmol/L [facility] Anion Gap 14 5 - 20 mmol/L [facility] Calcium 9.0 8.4 - 10.1 mg/dL [facility] 01/11/2007 6:51 AM EDT Juan Negro MD LABORATORY Final Resu lt Performing Organization Address [facility] de Phone Number [facility] [address] [place] [address] * URINE CULTURE (01/11/2007 6:42 AM EDT) Exam Type Urine Culture [facility] Growth Indicator Y [facility] Specimen Description Urine [facility] Culture <[id number] colony forming units per ml. Insignificant growth. Consider possible urethral or collection contamination. [facility] Culture Report FINAL [id number] [facility] 01/11/2007 6:42 AM EDT Juan Negro MD MICROBIOLOGY Edited [facility] [address] [place] [address] documented in this encounter Visit Diagnoses Not on filedocumented [...]
--- OUTSIDE RECORDS SUMMARY | 2024-10-28 11:15 | XMS_ITS | Continuity of Care Document ---
Author Organization [facility] Address [address] [place] [address] Phone Care Team Providers Care Learning And Development Associate Name Role Phone Liam Palmer Jr, DO Unavailable Unavailabl e Procedures Procedure Date Cosmetic Botulinum toxin a per unit Advance Directives Directive Yes / No Effective Date File Name No Information Encounters Encounter Description Practice Location Reason(s) For Visit Diagnoses Date Provider Providers Copied on Encounter [facility], [address] [place], [address], [place] tel:[phone] [facility] Cosmetic Botox (chief complaint) Encounter for cosmetic surgery Estela Wheeler. [address] [place] [address], [id number], . tel:[phone] Referring Provider: Liam Dumont, [address] [place] [address], [id number]. tel:[phone] Family History Family Member Type Diagnosis Age At Onset No Information Payers Payer name Insurance type Covered green party ID Efra becker(s) [facility] - [id number] [employer] 11 Social History Type Description [...]
--- OUTSIDE RECORDS SUMMARY | 2025-03-15 11:00 | XMS_ITS | Encounter Summary ---
Author Organization [facility] Address [address] [place] [address] Care Team Providers Care Utility Tractor Operator Name Role Phone Siobhan Sharpjusto Unavailable Rasheeda Newton RD Unavailable [phone] Unavailable [phone] Fritz HENDERSON MD, Shlomo Momin Primary Care Provider [phone] Yuan Miller MD, PhD Unavailable [phone] Source Comments In the event this information is protected by the Federal Confidentiality of Alcohol and Drug AbusePatient Records regulations: The Federal rules restrict any use of the information to criminally investigate or prosecute any alcohol or drug abuse patient.[facility] Reason for Referral * Consult, Test, Treat (Routine) - Authorized Specialty Diagnoses / Procedures Referred By Contjoana t Referred To Contact Diagnoses Chronic pain syndrome Small fiber neuropathy Visceral hyperalgesia Neuralgia and neuritis History of Priscila-en-Y gastric bypass Generalized abdominal pain H/O gastric bypass Pain at surgical site Procedures PROVIDER ORDERED FOLLOW UP OFFICE/OUTPATIENT NEW HIGH [place] [address] [place] [address] Phone: tel: fax: Referral ID Status Reason Start Date Expiration Date Visits Requested Visits Authorized [id number] Authorized PCP Requested Referral 06/15/2025 03/15/2026 1 1 Reason for Visit * Reason Comments Chronic Pain * Consult, Test, Treat (Routine) - Closed Specialty Diagnoses / Procedures Referred By Brenda t Referred To Contact Diagnoses Chronic pain syndrome Small fiber neuropathy Procedures PROVIDER ORDERED FOLLOW UP OFFICE/OUTPATIENT [facility] [address] [place] [address] [place] [address] Phone: tel: fax: Referral ID Status Reason Start Date Expiration Date V isits Requested Visits Authorized [id number] Closed PCP Requested Referral 03/11/2025 02/08/2026 1 1 Encounter Details Date Type Department Care Team (Latest Contact Info) Description 03/15/2025 11:00 AM EDT [facility] Neurology Pain [address] [place] [address] [place] [address] [place] [address] Chronic pain syndrome; Small fiber neuropathy; Visceral hyperalgesia; Neuralgia and neuritis; History of Priscila-en-Y gastric bypass; Generalized abdominal pain; H/O gastric bypass; Pain at surgical site Social History Tobacco Use Types Packs/Day Years Used Date Smoking Tobacco: Never Smokeless Tobacco: Never Alcohol Use Standard Drinks/Week Comments Not Currently 0 (1 standard drink = 0.6 oz pur e alcohol) [facility] Utilities Answer Date Recorded In the past 12 months has Wally, gas, oil, or water [employer] threatened to shut off services in your [...] place to sleep or slept in a detention (including now)? No 02/16/2024 Housing Stability Vital [...] any time in the past 12 m [facility], were you homeless or living in a detention (including now)? No 10/18/2024 Area Deprivation Index Answer Date Reagan rded National Score (1-100), lower number is lower ri sk 63 03/05/2023 State Score (1-10), lower number is lower risk 4 03/05/2023 Data from: https://www.neighborhoodatlas.medicine.[facility].edu/. Last address used for calculation [address] 03/05/2023 Comments No Sex and [...] file Not on file Not on file documented as of this encounter Functional Status * Are you deaf or do you have serious difficulty hearing? Answer Date of Assessment Author No 08/02/2024 3:06 PM Donna Olea RN * Are you blind or do you have serious difficulty seeing, even when wearing glasses? Answer Date of Assessment Author No 08/02/2024 3:06 PM Donna Olea RN * Do you have serious difficulty walking or climbing stairs? Answer Date of Assessment Author No 08/02/2024 3:06 PM Donna Olea RN * Do you have difficulty dressing or bathing? Answer Date of Assessment Author No 08/02/2024 3:06 PM Donna Olea RN * Because of a physical, mental, or emotional condition, do you have difficulty doing errands alone such as visiting a doctor's office or shopping? Answer Date of Assessment Author No 08/02/2024 3:06 PM Donna Olea RN documented as of this encounter Mental Status * Because of a physical, mental, or emotional condition, do you have serious difficulty concentrating, remembering, or making decisions? Answer Entry Date Author No 08/02/2024 3:06 PM Donna Olea RN documented in this encounter Progress Notes * Wilma Lei, - 03/15/2025 11:00 AM EDT THE [facility] Neurological [place] March 15, 2025 I have communicated my name and active licensure. The patient's identity and physical location wereverified at the time of this visit. Either the patient or their legal sales representative public utilities has been informed of the risks and benefits of -- and alternatives to -- treatment through a remote evaluation andconsents to proceed with the evaluation remotely. Pt location: [place] Provider location: [place] Diagnosis: 1. Chronic pain syndrome - ICD9: 338.4, ICD10: G89.4 (primary diagnosis) 2. Small fiber neuropathy - ICD9: 356.9, ICD10: G62.9 SUBJECTIVE: Melina Taveras presents to for a follow-up appointment for chronic pain. Since the last visit, Melina Taveras states the pain has been stable. Pain fluctuates day to day but on average it is about 7/10. Has not improved since last visit. Neuropathy seems to be worsening. On Namenda 10mg in AM and 5 mg in PM x 2 weeks and tolerating without side effects. Is open to increasing Namenda dose. Needs a refill of the Journavyx and has found it helpful for the acute pain, especially associated with pain from feeding tube. (She has spoken with her insurance company and they will cover up to 3 months) Not a candidate for ketamine infusion due to insurance issues. She went to [facility] for success and did not find it very helpful. But seeing Dr. Wilder in pain psychology has been helpful. Sleep has been great without any issues. Exercise consists of PT, aquatic therapy, which has been helpful. PDMP website checked and validated. All prescriptions have been APPROPRIATELY filled. No suspiciousactivity was identified. 03/15/2025 by Wally Dos Santos MD Current Outpatient Medications Medication Sig Dispense Refill nutritional supplement (PEPTAMEN INTENSE VHP) 0.09 gram- 1 kcal/mL Via J tube: Peptamen Intense VHPContinuous/cycled pump infusion of 105 mL/hr x 12 hours (1250 mL total/day) via Kangaroo Dung pump.water flush of 50 mL per 1 hour via feed and flush bag 87754 mL 11 Miscellaneous Medical Supply 1 each as needed. Needs AMT 18 Fr x 2.5 cm low profile balloon J tube - ENFit 1 each 3 ivcnpj-bvucekfj-diqcjev (CREON) 36,000-114,000- 180,000 unit delayed release capsule Take 2 capsules by mouth three times a day with meals. 1 with snacks 600 capsule 1 memantine (NAMENDA) 10 mg tablet Take 1 tablet by mouth two times a day. 60 tablet 1 Miscellaneous Medical Supply kit 1 Each every 4 months. [employer] MiniOne low profile balloon gastrostomy button with ENFit extension set Size: 18 Fr x 2.5 cm Ref # : [id number] Change tube every 4 months. 1 Kit 5 Miscellaneous Medical Supply 1 Each one time a week. [employer] 12 inch right angleconnection feeding extension set Ref #: [id number] For use with AMT MiniOne low profile balloon jejunostomy feeding tube. Change the extension set weekly 1 Each 11 suzetrigine (JOURNAVX) 50 mg tablet Trial Rx: Take 1 tab PO daily for acute pain 30 tablet 0 nutritional supplement (PROSOURCE NO CARB) 15-60 gram-kcal/30 mL lipk 1 Package by ORAL/FEEDING TUBE route two times a day. 60 Packet 5 Miscellaneous Medical Supply 1 Each one time a week. would like one pack per week of the Medline purple gently bath wipes 4 Each 5 Colestipol HCl (COLESTID) 5 gram granules Take 5 g by mouth two times a day. 180 Packet 0 gabapentin (NEURONTIN) 600 mg tablet Dose clarification: Take gabapentin 300mg + 600mg PO TID. Do not adjust dose upward without written Rx instructions from your physician. See attached Rx. 90 tablet 5 gabapentin (NEURONTIN) 300 mg capsule Dose clarification: Take gabapentin 300mg + 600mg PO TID. Do not adjust dose upward without written Rx instructions from your physician. See attached Rx. 90 capsule 5 nutritional supplement (PEPTAMEN 1.5) 0.068 gram- 1.5 kcal/mL Peptamen 1.5 or equal formula via J tube goa; rate 65 mL/hour x 12 hours water flush 60 mL, 6x/day 82736 mL 3 guar gum (NUTRISOURCE FIBER) packet Take 1 Packet by mouth two times a day. 60 Packet 11 enteral pump access.hydrolysis (RELIZORB) crtg One cartridge daily via J tube 30 Each 11 Miscellaneous Medical Supply 8 Each once daily. needs 4x4 split guaze to change dressing around J tube up to 8 times daily and as needed 240 Each 11 zinc oxide-cod liver oil (DESITIN) 40 % paste Apply to affected area around J tube as directed. 120g [address] (PROTONIX) 40 mg tablet Take 1 tablet by mouth two times a day before meals 60 tablet 0 naloxone 4 mg/actuation nasal spray (NARCAN) Use 1 spray in one nostril as needed for narcotic overdose. May repeat every 2 to 3 min in alternating nostrils until medical assistance is available 2 Each 0 Miscellaneous Medical Supply 1 Each once daily. please provide pt with flush bags for her EN needs.30 Each 11 Miscellaneous Medical Supply 1 Each as needed. please provide pt with EN pump for EN needs, supply new one as needed 1 Each 2 ondansetron orally disintegrating (ZOFRAN ODT) 8 mg disintegrating tablet Take 1 tablet by mouth every 8 hours as needed for nausea/vomiting. 30 tablet 1 methocarbamol (ROBAXIN) 750 mg tablet Take 1 tablet by mouth three times a day as needed (for muscle spasm). 20 tablet 0 acetaminophen (TYLENOL) 650 mg/20.3 mL soln Take 31.2 mL by mouth every 6 hours. Do not exceed 5 doses in 24 hours. 500 mL 0 tiZANidine (ZANAFLEX) 4 mg tablet Take 1 tablet by mouth every 6 hours. 10 tablet 0 Walker misc 1 Units once daily. 1 Each 0 traZODone (DESYREL) 100 mg tablet 200 mg at bedtime venlafaxine (EFFEXOR) 75 mg tablet Take 1 tablet by mouth two times a day. 60 tablet 0 MULTIVITAMIN-FERROUS FUMARATE-FOLIC ACID 18 MG-400 MCG TABLET Take 1 tablet by mouth once daily. 30tablet 0 pyridoxine, vitamin B6, (VITAMIN B6) 50 mg tablet Take 1 tablet by mouth once daily. 30 tablet 0 thiamine (VITAMIN B1) 100 mg tablet Take 1 tablet by mouth once daily. 30 tablet 0 cholecalciferol, Vitamin D3, (VITAMIN D3) 1,250 mcg (50,000 unit) cap capsule Take 1 capsule by mouth five times a week. levothyroxine (SYNTHROID) 50 mcg tablet Take 50 mcg by mouth. cyanocobalamin, vitamin B-12, (B-12 COMPLIANCE) 1,000 mcg/mL kit 1 mL by INJECTION(UNSPECIFIED PARENTERAL ROUTES) route one time a week. ALPRAZolam (XANAX) 0.5 mg tablet Take 0.5 mg by mouth at bedtime as needed. No current facility-administered medications for this visit. Past Medical History: PAST MEDICAL HISTORY Diagnosis Date Breast mass 11/04/2007 Right, biopsy benign Encounter for cosmetic surgery Endometriosis Excess skin of arm Fracture , ankle Localized adiposity Morbid obesity (HCC) Ovarian cyst Thyroid disorder Past Surgical History: PAST SURGICAL HISTORY Procedure Laterality Date ASSIST ONLY x3 EGD multiple GASTRIC BYPASS HX 12/2021 conversion from gastruc sleeve LAPAROSCOPY SURG CHOLECYSTECTOMY 2004 Cholecystectomy, lap MIDLINE INSERTION/CONSULT 02/26/2024 PAST SURGICAL HISTORY OF 10/28/2011 gastric sleeve PAST SURGICAL HISTORY OF 2011 excision of goiter PAST SURGICAL HISTORY OF thyroid mass removed REMOVAL STOMACH,PRISCILA-EN-Y 07/29/2022 TOTAL ABDOMINAL HYSTERECT W/WO RMVL TUBE OVARY 05/01/2010-05/2011 Hysterectomy, partial uterus then completion Family History: FAMILY HISTORY Problem Relation Age of Onset COPD Mother Hypertension Mother other (hypoglycemia) Mother Emphysema Father Coronary Artery Disease Father Ischemic Heart Disease Father 58 s/p stents Hypertension Father Asthma Sister 1/2 sister with female cysts other (unkown) Sister BiPolar-Bulemia None Brother 1/2--unkown Thyroid Other 1st cousin - ? Grave's Social History: Social History Tobacco Use Smoking status: Never Smokeless tobacco: Never Vaping Use Vaping status: Never Used Substance Use Topics Alcohol use: Not Currently Drug use: No Comment: denies tx for drug/alcohol abuse in the past. OBJECTIVE: There were no vitals taken for this visit. PHYSICAL EXAMINATION: Patient responding to questions appropriately. Deferred due to virtual visit. ASSESSMENT: 1. Chronic pain syndrome - ICD9: 338.4, ICD10: G89.4 (primary diagnosis) 2. Small fiber neuropathy - ICD9: 356.9, ICD10: G62.9 PLAN: 1) Refill Journavyx, new RX sent, pt aware this medication currently only has FDA approval for acute pain 2) Increase Namenda to 10mg PO BID, new RX sent 3) Continue to prioritize diet, exercise, sleep. Wally Dos Santos MD (PGY1) I have reviewed the resident's note and agree with the assessment and plan. Wilma Lei, DO Important Patient Information: 1. To schedule Pain Recovery appointments or post-injection office visits, please call: [phone] 2. The nursing staff and medical assistants are a part of your pain recovery team and will be handling your phone calls and inquiries. 3. Your study results and treatment plan will be discussed during a follow-up appointment. If you do not have a follow-up appointment and wish to discuss any issues directly with me, please call: [phone] to set-up an appointment. 4. MyChart is best used for refill requests or yes or no questions. Anything more complicated will likely require a follow-up appointment that you can schedule by [phone]. 2. If you are scheduled for a ketamine infusion, you will be contacted regarding specific scheduling instructions in the future by our department. There is no need to contact our department regardingthe scheduling process or your estimated wait; you will be contacted once there is an opening. documented in this encounter Plan of Treatment Upcoming Encounters Date Type Department Care Team (Latest Contact Info) Description 03/31/2025 11:00 AM EDT Office Visit General Surgery [address] [place] [address] Michael Mora PA-C [address] [id number] follow up- add on ok'd by Michael 04/07/2025 1:00 PM EDT [facility]rological [facility] [address] [phone] Agatha Kim PSYD [address] [place] [address] 04/19/2025 11:00 AM EDT [facility] [address] [place] [address] Joann Loera APRN.RIVER TESTER [address] [place] [address] Cognitive movement issues 04/21/2025 8:30 AM EDT [facility] Nutrition Therapy [address] [id number] Tiffany Banks, RD [address] [id number] f/u TF forula tolerance and hydration 05/29/2025 9:00 AM EDT [facility] Gastroenterology [address] [id number] Johanna Martinez MD [facility] [address] [place] [phone] 3 month follow up 06/28/2025 10:00 AM EDT [facility] Neurology Pain [address] [place] [address] [place] [address] [place], [place] [id number] Follow up for pain documented as of this encounter Visit Diagnoses Diagnosis Chronic pain syndrome Small fiber neuropathy Unspecified hereditary and idiopathic peripheral neuropathy Visceral hyperalgesia Other symptoms involving abdomen and pelvis Neuralgia and neuritis Neuralgia, neuritis, and radiculitis, unspecified History of Priscila-en-Y gastric bypass Bariatric surgery status Generalized abdominal pain Abdominal pain, generalized H/O gastric bypass Bariatric surgery status Pain at surgical site documented in this encounter Care Teams Utility Tractor Operator Relationship Specialty Start Date End Date Shlomo Hu II, MD [address] [place] [id number] PCP - General Internal Medicine 10/06/23 Jacob Sharp [address] [place] [phone] Referring 04/30/[address] [place] [address] Registered Dietitian Nutrition 06/24/[address] [place] [address] Registered Dietitian Nutrition 08/27/23 Yuan Miller MD, PhD [address] [place], [place] [phone] Surgeon General Surgery 02/03/24 documented as of this encounter
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
--- OUTSIDE RECORDS SUMMARY | 2025-03-27 14:30 | XMS_ITS | Encounter Summary ---
Author Organization [facility] Address [address] [facility] [place] [address] Care Team Providers Care Carnival Worker Name Role Phone Shlomo Hu MD Primary Care Provider [phone] Jess Marsh LPN Unavailable Esthela Tesfaye RIVET HEATER GAS Unavailable [phone] Reason for Referral * Rehabilitation - Outpatient (Routine) - Authorized Specialty Diagnoses / Procedures Referred By Brenda nash Referred To Contact Physical Therapy Diagnoses Left arm swelling Lymphedema Procedures [place] OFFICE/OUTPATIENT COUNTS INCLUDE 234 [facility]S AT [facility] MDM 60 MINUTES Yanci Aguilar PA [address] [facility] 110 [place] [address] Phone: tel: fax: [facility] [address] [place] [address] fax: Referral ID Status Reason Start Date Expiration Date Visits Requested Visits Authorized [id number] Authorized Specialty Services Required 03/28/2025 09/24/2025 1 1 Scheduling Instructions Please help pt get set up with Lymphedema Clinic Reason for Visit * Reason Comments Nausea Encounter Details Date Type Department Care Team (Late st Contact Info) Description 03/27/2025 2:30 PM EDT Office Visit [facility] [address] [facility] [address] [place] [phone] Yanci Aguilar PA [address] [facility] [address] [place] [address] Change in stool (Primary Dx); Watery stools; [...] 04/18/2024 How often do you attend chur [employer] or anabaptist services? Never 04/18/2024 Do you belong to any clubs o r organizations such as tenriism groups, unions, fraternal or athletic groups, or [...] Recorded Patient Health Questionnaire-2 Score 2 03/27/2025 [facility] Occupat ional Health - Occupational Stress [...] place to sleep or slept in a retirement (including now)? No 03/01/2023 Housing Stability Vital [...] any time in the past 12 m [facility], were you homeless or living in a retirement (including now)? 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 - has some SOB and some pain when [...] 27 tablet3 ergocalciferol (Vitamin D-2) 1.25 MG (57419 UT) capsule Take 1 capsule (1.25 mg) [...] Right 2008 SECTION, LOW TRANSVERSE x3 CHOLECYSTECTOMY 2004 CT ANGIO HEAD 04/14/2024 CT ANGIO HEAD 04/14/2024 CT ANGIOGRAM NECK 04/14/2024 CT ANGIOGRAM NECK 04/14/2024 IR CVC PICC 08/15/2022 IR CVC PICC MASS EXCISION 2012 thyroid mass OTHER SURGICAL HISTORY Gastric sleeve PARTIAL HYSTERECTOMY 2009 MN UPPER ARM/ELBOW SURGERY UNLISTED Bilateral 09/2019 ARM REDUCTION TOTAL ABDOMINAL HYSTERECTOMY 2010 Visit Vitals BP 124/82 Pulse 86 Resp 17 Ht 5' 9 Wt 205 lb SpO2 97% BMI 30.27 kg/m?? Smoking Status Never BSA 2.13 m?? Review of Systems Constitutional: Positive for unexpected [...] AM EDT Office Visit [facility] [address] [place] [address] Tanya Lozano MD [address] [place] [address] 04/20/2025 3:00 PM EDT Office Visit [facility] [address] [facility] [address] [place] [phone] Sonny Rodriguez DPM [address] [facility] [address] [place] [address] 05/04/2025 2:50 PM EDT Office Visit [facility] [address] [facility] [address] [place] [phone] Sonny Rodriguez DPM [address] [facility] 5 [place] [address] Scheduled Orders Name Type Priority Associated Diagnoses Orde r Schedule Stool culture Microbiology Routine Change in stool Watery stools Expected: 03/27/2025 (Approximate), Expires: 03/27/2026 CBC and differential Lab Routine Change in stool Watery stools Ordered: 03/27/2025 Basic metabolic panel Lab Routine Change in stool Watery stools Ordered: 03/27/2025 C DIFFICILE BY PCR ([facility]) Lab Routine Change in stool Watery stools Expected: 03/27/2025 (Approximate), Expires: 03/27/2026 Scheduled Referrals Name Type Priority Associated Diagnoses [...] documented as of this encounter Care Teams Carnival Worker Relationship Specialty Start Date End Date Shlomo Hu MD [address] [facility] 110 [place] [address] PCP - General Internal Medicine 02/15/23 Jess Marsh LPN [address] [facility] 110 [place] [address] 12/06/24 Esthela Tesfaye, KIRA [address] [place] [address] Volleyball Referee Family Medicine 02/03/25 documented as of this encounter
--- OUTSIDE RECORDS SUMMARY | 2025-03-28 09:07 | XMS_ITS | Encounter Summary ---
Author Organization [facility] Address [address] [place] [address] Phone Care Team Providers Care Dental Financial Coordinator Name Role Phone Yg James MD Primary Care Provider [phone] Shlomo Hu MD Primary Care Provider Encounter Details Date Type Department Care Team (Late st Contact Info) Description 06/24/2021 Orders Only [facility] [[email or web address] LEGACY [address] [place] [address] Conversion, Onbase Social History Tobacco Use Types Packs/Day Years Used Date Smoking Tobacco: Never Assessed Comments Unknown Sex and Gender Information Value Date Recorded Sex Assigned at Not on file Legal Sex Female 12:53 PM EST Gender Identity Not on file Sexual Orientation Not on file documented as of this encounter Plan of Treatment Scheduled Orders Name Type Priority Associated Diagnoses Orde r Schedule OUTSIDE LAB SCAN Lab Ordered: 06/24/2021 OUTSIDE LAB SCAN Lab Ordered: 06/24/2021 documented as of this encounter Visit Diagnoses Not on filedocumented in this encounter Additional Health Concerns Infection Onset Date Last Indicated Resolved Time COVID-19 Rule-Out 04/28/2023 04/28/2023 05/09/2023 5:23 AM EDT documented as of this encounter Care Teams Dental Financial Coordinator Relationship Specialty Start Date End Date Yg James MD PCP - General 09/14/17 12/20/24 Shlomo Hu MD [address] [facility] 110 [place] [address] PCP - General Internal Medicine 12/21/24 documented as of this encounter
--- OUTSIDE RECORDS SUMMARY | 2025-03-28 09:07 | XMS_ITS | Clinical Summary ---
Author Organization [facility] Address [address] [place] [address] Care Team Providers Care Cash Shortage Investigator Name Role Phone Shlomo Hu MD Primary Care Provider [phone] Allergies Active Allergy Reactions Criticality Noted Date Comments Adhesive Tape-Silicones Rash,Unknown High 08/09/2021 Aspartame Headache,Nausea Only,Other (See Comments) Medium 04/29/2022 nausea/migraines Nsaids (Non-Steroidal Anti-Inflammatory Drug) Other (See Comments) 07/29/2022 Paroxetine GI Intolerance,Unknown 08/08/2022 Other Reaction(s): Intolerance Gi upset Gi upset Other Reaction(s): Intolerance Gi upset Gi upset Scopolamine Other (See Comments),Unknown 07/29/2022 Blurred vision Tramadol Swelling,Hives,Unkn own High 01/01/2022 Medications nut.tx.impaire d digestive fxn (PEPTAMEN 1.5 ORAL) Take by mouth . Acti ve suzetrigine (Journavx) 50 mg Tab Take 50 mg by mouth daily . Active lipase/proteas e/amylase (VIOKACE ORAL) Take by mouth . Active colestipoL (COLESTID) 5 gram granules Take 5 (five) g by mouth 2 (two) times a day . Active gabapentin (NEURONTIN) 600 MG tablet Take 2 (two) tablets (1,200 mg total) by mouth 3 (three) times a day . Active promethazine (PHENERGAN) 50 MG tablet Take 1 (one) tablet (50 mg total) by mouth every 6 (six) hours as needed for nausea . Active tiZANidine (ZANAFLEX) 2 MG tablet Take by mouth 3 (three) times a day . Active traZODone (DESYREL) 100 MG tablet Take 2 (two) tablets (200 mg total) by mouth nightly as needed . 4 Active enteral pump access.hydroly sis (RELIZORB MISC) by Miscellaneous route . Active memantine (NAMENDA) 5 MG tablet Take 1 (one) tablet (5 mg total) by mouth 2 (two) times a day . Active liver oil-zinc oxide (DESITIN) ointment Apply topically as needed for dry skin . Active pantoprazole (PROTONIX) 40 MG tablet Take 90 mg by mouth daily . Active ondansetron (ZOFRAN) 8 MG tablet Take 1 (one) tablet (8 mg total) by mouth every 8 (eight) hours as needed for nausea . Active methocarbamoL (ROBAXIN) 750 MG tablet Take 1 (one) tablet (750 mg total) by mouth 3 (three) times a day as needed for muscle spasms . Active ALPRAZolam (XANAX) 0.5 MG tablet Take 1 (one) tablet (0.5 mg total) by mouth nightly as needed for sleep . Active venlafaxine (EFFEXOR) 75 MG tablet Take 1 (one) tablet (75 mg total) by mouth 2 (two) times a day . Active multivit-insurance examiner als/folic acid (CENTRUM ADULTS ORAL) Take by mouth . A ctive pyridoxine HCl, vitamin B6, (VITAMIN B-6 ORAL) Take by mouth . Acti ve Active Problems Problem Noted Date Diagnosed Date Feeding tube dysfunction 01/25/2025 Distal intestinal obstruction syndrome History of malnutrition 01/25/2025 Encounters Date Type Department Care Team Description 01/25/2025 11:30 AM EDT Office Visit [facility] [address] [place] [address] [place] [address] Jose Rafael Okeefe MD Feeding tube dysfunction, initial encounter (Primary Dx); Distal intestinal obstruction syndrome (HCC); History of malnutrition; Vomiting, unspecified vomiting type, unspecified whether nausea present 01/19/2025 Travel 01/15/2025 Travel from Last 3 Months Family History Medical History Relation Comments Pancreatic cancer Cousin Heart disease Father Hypertension Father Heart disease Mother Hypertension Mother Cancer Other prostate Relation Status Comments Cousin Other Father Mother Other Alive Social History Tobacco Use Types Packs/Day Years Used Date Smoking Tobacco: Never Smokeless Tobacco: Never Comments Unknown Sex and Gender Information Value Date Recorded Sex Assigned at Not on file Legal Sex Female 8:52 AM EDT Gender Identity Not on file Sexual Orientation Not on file Last Filed Vital Signs Vital Sign Reading Time Taken Comments Blood Pressure - - Pulse - - Temperature - - Respiratory Rate - - Oxygen Saturation - - Inhaled Oxygen Concentration - - Weight 95.3 kg (210 lb) 01/25/2025 11:40 AM EDT Height 175.3 cm (5' 9 ) 01/25/2025 11:40 AM EDT Body Mass Index 31.01 01/25/2025 11:40 AM EDT Plan of Treatment Health Maintenance Due Date Last Done Comments CT Colonography 1976 Fecal DNA 1976 Fecal occult blood test (FOBT,FIT) 1976 Flexible sigmoidoscopy 1976 Depression Screening/Follow-Up (PHQ-2/9) 1988 HIV Screening 1991 Hepatitis C Screening 1994 Tetanus: Every 10yrs 04/20/2016 04/20/2006 COVID-19 Vaccine ( season) 2024 01/09/2021, 12/19/2020 Influenza Vaccine (#1) 2025 , 08/09/2023, 06/16/2022, Additional history exists Wellness Visit 08/17/2025 08/17/2024, 05/13/2022 Mammogram 02/15/2026 02/15/2025, 11/19/2022 Colonoscopy 04/23/2033 04/23/2023 Colorectal Cancer Screening/Monitoring 04/23/2033 Pneumococcal Vaccine: Ped or At-Risk Aged Out 05/17/2010 No longer eligible based on patient's age to complete this topic Insurance [place] [facility] Care Teams Cash Shortage Investigator Relationship Specialty Start Date End Date Shlomo Hu MD [address] [place] [id number] PCP - General Internal Medicine 01/25/25
--- OUTSIDE RECORDS SUMMARY | 2025-03-28 09:07 | XMS_ITS | Encounter Summary ---
Author Organization [facility] Address [address] [place] [address] Care Team Providers Care Freelance Recruiter Name Role Phone Jacob Sharp Unavailable Rasheeda Newton RD Unavailable [phone] Unavailable [phone] Fritz HENDERSON MD, Shlomo Momin Primary Care Provider [phone] Yuan Miller MD, PhD Unavailable [phone] Source Comments In the event this information is protected by the Federal Confidentiality of Alcohol and Drug AbusePatient Records regulations: The Federal rules restrict any use of the information to criminally investigate or prosecute any alcohol or drug abuse patient.[facility] Encounter Details Date Type Department Care Team (Late st Contact Info) Description 02/29/2024 Get Medical Advice General Surgery [address] [place] [address] Yuan Miller MD, PhD [address] [place] [address] Diagnosis Social History Tobacco Use Types Packs/Day Years Used Date Smoking Tobacco: Never Smokeless Tobacco: Never Alcohol Use Standard Drinks/Week Comments Not Currently 0 (1 standard drink = 0.6 oz pur e alcohol) AUDIT-C Answer Date Recorded Q1: How often [...] 08/10/2023 PHQ-2 Answer Date Recorded PHQ-2 score 6 02/26/2024 Hunger Vital Sign Answer Date Recorded Within the past 12 months, y ou worried that your food would run out before you got the money to buy more. Never true 02/16/20 24 Within the past 12 months, t he food you bought just didn't last and you didn't have money to get more. Never true 02/16/2024 PRAPARE - Transportation Answer Date Re corded In the past 12 months, has l ack of transportation kept you from medical appointments or from getting medications? No 12/2023 In the past 12 months, has l ack of transportation kept you from meetings, work, or from getting things needed for daily living? No 02/16/2024 Housing Stability Vital Sign Answer [...] place to sleep or slept in a intermediate (including now)? No 02/16/2024 Area Deprivation Index Answer Date Reagan rded National Score (1-100), lower number is lower ri sk 63 03/05/2023 State Score (1-10), lower number is lower risk 4 03/05/2023 Data from: https://www.neighborhoodatlas.medicine.[facility]/. Last address used for calculation [address] [address] 03/05/2023 Comments No Sex and [...] hearing? Answer Date of Assessment Author No 02/21/2024 2:13 PM EDT Chelle Connell RN * Are you blind or do you have serious difficulty seeing, even when wearing glasses? Answer Date of Assessment Author No 02/21/2024 2:13 PM EDT Chelle Connell RN * Do you have serious difficulty walking or climbing stairs? Answer Date of Assessment Author No 02/21/2024 2:13 PM EDT Chelle Connell RN * Do you have difficulty dressing or bathing? Answer Date of Assessment Author No 02/21/2024 2:13 PM EDT Chelle Connell RN * Because of a physical, mental, or emotional condition, do you have difficulty doing errands alone such as visiting a doctor's office or shopping? Answer Date of Assessment Author No 01/18/2024 3:36 PM EDT Kenny Rodriguez RN documented as of this encounter Mental Status * Because of a physical, mental, or emotional condition, do you have serious difficulty concentrating, remembering, or making decisions? Answer Entry Date Author No 02/21/2024 2:13 PM EDT Chelle Connell RN documented in this encounter Plan of Treatment Upcoming Encounters Date Type Department Care Team (Latest Contact Info) Description 03/31/2025 11:00 AM EDT Office Visit General Surgery [address] [id number] Michael Mora PA-C [address] [place] [address] follow up- add on ok'd by Michael 04/07/2025 1:00 PM EDT [facility] [address] [id number] Agatha Kim PSYD [address] [place] [address] 04/19/2025 11:00 AM EDT [facility] Neurological Mosque [address] [place] [address] Joann Loera APRN.CASINO SHIFT MANAGER [address] [place] [address] Cognitive movement issues 04/21/2025 8:30 AM EDT [facility] Nutrition Therapy [address] [id number] Tiffany Banks, RD [address] [id number] f/u TF forula tolerance and hydration 05/29/2025 9:00 AM EDT [facility] Gastroenterology [address] [id number] Johanna Martinez MD [facility] [address] [place], [place] [id number] 3 month follow up 06/28/2025 10:00 AM EDT [facility] Neurology Pain [address] [place] [address] [place] [address] [place] [address] Follow up for pain documented as of this encounter Visit Diagnoses Not on filedocumented in this encounter Additional Health Concerns Infection Onset Date Last Indicated Resolved Time COVID-19 Rule-Out 04/12/2024 04/12/2024 04/12/2024 3:56 PM EDT COVID-19 Confirmed Comment:Anticipate 10 day isolation 04/12/2024 04/18/202404/14 8:51 PM EDT COVID-19 Rule-Out 04/18/2024 04/18/2024 04/18/2024 2:28 PM EDT COVID-19 Rule-Out 07/29/2024 07/29/2024 07/29/2024 7:20 PM EST documented as of this encounter Care Teams Freelance Recruiter Relationship Specialty Start Date End Date Shlomo Hu II, MD [address] [place] [address] PCP - General Internal Medicine 10/06/23 Jacob Sharp [id number] [id number] Referring 04/30/[address] [phone] Registered Dietitian Nutrition 06/24/[address] [place] [address] Registered Dietitian Nutrition 08/27/23 Yuan Miller MD, PhD [address] [place] [address] Surgeon General Surgery 02/03/24 documented as of this encounter
--- OUTSIDE RECORDS SUMMARY | 2025-03-28 09:07 | XMS_ITS | Encounter Summary ---
Author Organization [facility] Address [address] [place] [address] Phone Care Team Providers Care Venue Manager Name Role Phone Yg James MD Primary Care Provider [phone] Shlomo Hu MD Primary Care Provider [phone] Encounter Details Date Type Department Care Team (Late st Contact Info) Description 08/27/2021 Orders Only [facility] [address] [place] [address] Conversion, Onbase Social History Tobacco Use Types [...] Type Priority Associated Diagnoses Orde r Schedule SLEEP STUDY ORDER - ONBASE SCAN Sleep Center Ordered: 021 documented as of this encounter Visit Diagnoses Not on filedocumented in this encounter Additional Health Concerns Infection Onset Date Last Indicated Resolved Time COVID-19 Rule-Out 04/28/2023 04/28/2023 05/09/2023 5:23 AM EDT documented as of this encounter Care Teams Venue Manager Relationship Specialty Start Date End Date Yg James MD PCP - General 09/14/17 12/20/24 Shlomo Hu MD [address] [address] PCP - General Internal Medicine 12/21/24 documented as of this encounter
--- OUTSIDE RECORDS SUMMARY | 2025-03-28 09:07 | XMS_ITS | Encounter Summary ---
Author Organization [facility] Address [address] [place] [address] Phone Care Team Providers Care Trolley Coach Driver Name Role Phone Yg James MD Primary Care Provider [phone] Shlomo Hu MD Primary Care Provider [phone] Encounter Details Date Type Department Care Team (Late st Contact Info) Description 07/11/2021 Orders Only [facility] [address] [place] [address] Conversion, Onbase Social History Tobacco Use Types [...] r Schedule OUTSIDE LAB SCAN Lab Ordered: 07/11/2021 documented as of this encounter Visit Diagnoses Not on filedocumented in this encounter Additional Health Concerns Infection Onset Date Last Indicated Resolved Time COVID-19 Rule-Out 04/28/2023 04/28/2023 05/09/2023 5:23 AM EDT documented as of this encounter Care Teams Trolley Coach Driver Relationship Specialty Start Date End Date Yg James MD PCP - General 09/14/17 12/20/24 Shlomo Hu MD [address] [place] [address] PCP - General Internal Medicine 12/21/24 documented as of this encounter
--- OUTSIDE RECORDS SUMMARY | 2025-03-28 09:07 | XMS_ITS | Encounter Summary ---
Author Organization [facility] Address [address] [facility] [place] [address] Care Team Providers Care Forensic Economist Name Role Phone Shlomo Hu MD Primary Care Provider [phone] Jess Marsh LPN Unavailable Esthela Tesfaye REACH LIFT TRUCK DRIVER Unavailable [phone] Encounter Details Date Type Department Care Team (Late st Contact Info) Description 12/22/2024 Abstract [facility] [address] [facility] [address] [place] [address] Shlomo Hu MD [address] [facility] [address] [place] [address] Social History Tobacco Use Types Packs/Day Years [...] How often do you attend chur or congregation services? Never 04/18/2024 Do you belong to any clubs o r organizations such as episcopal groups, unions, fraternal or athletic groups, or [...] Answer Date Recorded Patient Health Questionnaire-2 Score 0 12/01/2024 [facility] - Occupational Stress [...] in a group home (including now)? No 03/01/2023 Housing Stability Vital [...] any time in the past 12 m [facility], were you homeless or living in a group home (including now)? 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 Not on file Not on file documented as of this encounter Plan of Treatment Upcoming Encounters Date Type Department Care Team (Late st Contact Info) Description 04/12/2025 9:50 AM EDT Office Visit [facility] [address] [place] [address] Tanya Lozano MD [address] [place] [address] 04/20/2025 3:00 PM EDT Office Visit [facility] [address] [place] [address] Sonny Rodriguez DPM [address] [facility] [address] [place] [address] 05/04/2025 2:50 PM EDT Office Visit [facility] [address] [place] [address] Sonny Rodriguez DPM [address] [facility] 5 [place] [address] documented as of this encounter Visit Diagnoses Not on filedocumented in this encounter Additional Health Concerns Assessment Noted Time PHQ-9 Depression Total Score: 18 024 9:42 AM EDT documented as of this encounter Care Teams Forensic Economist Relationship Specialty Start Date End Date Shlomo Hu MD [address] [place] [address] PCP - General Internal Medicine 02/15/23 Jess Marsh LPN [address] [place] [address] 12/06/24 Esthela Tesfaye, KIRA [address] [place] [address] Grinder Brake Lining Family Medicine 02/03/25 documented as of this encounter
--- OUTSIDE RECORDS SUMMARY | 2025-03-28 09:07 | XMS_ITS | Encounter Summary ---
Author Organization [facility] Address [address] [facility] [place] [address] Care Team Providers Care Receiving Specialist Name Role Phone Shlomo Hu MD Primary Care Provider [phone] Jess Marsh LPN Unavailable Esthela Tesfaye DENTAL COORDINATOR Unavailable [phone] Encounter Details Date Type Department Care Team (Late st Contact Info) Description 01/02/2025 Abstract [facility] [address] [facility] [address] [place] [address] Shlomo Hu MD 112 [facility] [address] [place] [address] Social History Tobacco Use Types Packs/Day Years [...] How often do you attend chur or episcopal services? Never 04/18/2024 Do you belong to any clubs o r organizations such as jain groups, unions, fraternal or athletic groups, or [...] Date Recorded Patient Health Questionnaire-2 Score 0 01/05/2025 [facility] - [...] place to sleep or slept in a mcc (including now)? No 03/01/2023 Housing Stability Vital [...] any time in the past 12 m [facility], were you homeless or living in a mcc (including now)? 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 Question Answer Date of Assessment Author Little interest or pleasure in doing things Not at all 01/05/2025 9:37 AM EDT Margaret Daigle LP N Feeling down, depressed, or hopeless Not at all 01/05/2025 9:37 AM EDT Margaret Daigle LP N Patient Health Questionnaire -2 Score 0 01/05/2025 9:37 AM EDT Margaret Daigle LP N documented as of this encounter Plan of Treatment Upcoming Encounters Date Type Department Care Team (Late st Contact Info) Description 04/12/2025 9:50 AM EDT Office Visit [facility] [address] [place] [address] Tanya Lozano MD [address] [place] [address] 04/20/2025 3:00 PM EDT Office Visit [facility] [address] [place] [address] Sonny Rodriguez DPM [address] [facility] 5 [place] [address] 05/04/2025 2:50 PM EDT Office Visit [facility] [address] [place] [address] Sonny Rodriguez DPLudmila [address] [facility] [address] [place] [address] documented as of this encounter Visit Diagnoses Not on filedocumented in this encounter Additional Health Concerns Assessment Noted Time PHQ-9 Depression Total Score: 18 024 9:42 AM EDT documented as of this encounter Care Teams Receiving Specialist Relationship Specialty Start Date End Date Shlomo Hu MD [address] [place] [address] PCP - General Internal Medicine 02/15/23 Jess Marsh LPN [address] [place] [address] 12/06/24 Esthela Tesfaye, DENTAL COORDINATOR [address] [place], [place] [phone] Venture Capital Analyst Family Medicine 02/03/25 documented as of this encounter
--- OUTSIDE RECORDS SUMMARY | 2025-03-28 09:07 | XMS_ITS | Encounter Summary ---
Author Organization [facility] Address [address] [facility] [place] [address] Care Team Providers Care Perfume And Toilet Water Maker Name Role Phone Shlomo Hu MD Primary Care Provider [phone] Jess Marsh LPN Unavailable Esthela Tesfaye CLIENT DIRECTOR Unavailable [phone] Encounter Details Date Type Department Care Team (Late st Contact Info) Description 12/15/2024 Abstract [facility] [address] [facility] [address] [place] [address] Shlomo Hu MD 112 [facility] [address] [place] [address] Social History Tobacco Use Types Packs/Day Years [...] How often do you attend chur or uatsdin services? Never 04/18/2024 Do you belong to any clubs o r organizations such as denominational groups, unions, fraternal or athletic groups, or [...] Recorded Patient Health Questionnaire-2 Score 0 12/01/2024 [facility] - Occupational [...] slept in a detention (including now)? No 03/01/2023 Housing Stability Vital [...] any time in the past 12 m [facility], were you homeless or living in a detention (including now)? 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 Not on file Not on file documented as of this encounter Plan of Treatment Upcoming Encounters Date Type Department Care Team (Late st Contact Info) Description 04/12/2025 9:50 AM EDT Office Visit [facility] [address] [place] [address] Tanya Lozano MD [address] [place] [address] 04/20/2025 3:00 PM EDT Office Visit [facility] [address] [place] [address] Sonny Rodriguez DPM [address] [facility] [address] [place] [address] 05/04/2025 2:50 PM EDT Office Visit [facility] [address] [place] [address] Sonny Rodriguez DPM [address] [facility] 5 [place] [address] documented as of this encounter Visit Diagnoses Not on filedocumented in this encounter Additional Health Concerns Assessment Noted Time PHQ-9 Depression Total Score: 18 024 9:42 AM EDT documented as of this encounter Care Teams Perfume And Toilet Water Maker Relationship Specialty Start Date End Date Shlomo Hu MD [address] [place] [address] PCP - General Internal Medicine 02/15/23 Jess Marsh LPN [address] [place] [address] 12/06/24 Esthela Tesfaye, KIRA [address] [place] [address] Medical Practitioners Family Medicine 02/03/25 documented as of this encounter
--- OUTSIDE RECORDS SUMMARY | 2025-03-28 09:07 | XMS_ITS | Clinical Summary ---
Author Organization [facility] Address [address] [place] [address] Phone Care Team Providers Care Rotary Kiln Operator Name Role Phone Shlomo Hu MD Primary Care Provider [phone] Allergies Active Allergy Reactions Criticality Noted Date Comments Adhesive Tape-Silicones Rash Low 05/16/2021 Aspartame Headache,Nausea Only,Other 05/21/2022 nausea/migraines Dobutamine Other 12/21/2024 Results documented on echo, cause [facility] Doxycycline Rash Low 11/18/2023 Ketorolac Hives,Swelling,Unkn own 07/06/2012 Morphine Hives 12/12/2015 Paroxetine Unknown 08/08/2022 Other Reaction(s): Intolerance Gi upset Gi upset Tramadol Swelling,Hives,Unkn own Medium 01/01/2022 Medications ALPRAZolam (Xanax) 0.5 mg tablet Take 1 tablet (0.5 mg) by mouth once daily as needed. 10/08/2023 Active amino acids-protein hydrolys (ProSource No Carb) 15-60 gram-kcal/30 mL liquid in packet 1 Package by Enteral route twice a day. 11/21/2024 05/20/20 25 Active suzetrigine 50 mg tablet Take 50 mg by mouth early in the morning.. 11/30/2024 Active cholecalciferol , vitD3,/vit K2 (VITAMIN D3-VITAMIN K2 ORAL) Take 1 capsule by mouth once daily. 12/03/2023 Active cyanocobalamin (Vitamin B-12) 1,000 mcg/mL injection Inject 1 mL (1,000 mcg) into the muscle every 7 days. 09/22/2024 Active gabapentin (Neurontin) 600 mg tablet Take 2 tablets (1,200 mg) by mouth 3 times a day. Active levothyroxine (Synthroid, Levoxyl) 50 mcg tablet Take 1 tablet (50 mcg) by mouth once daily. Active pancrelipase, Oik-Bqco-Mets, (Viokace) 20,880-78,300- 78,300 unit tablet Take 3 tablets by mouth 3 times daily (morning, midday, late afternoon). 11/16/2024 05/15/20 25 Active memantine (Namenda) 5 mg tablet Take 1 tablet (5 mg) by mouth twice a day. 08/15/2024 Active oxyCODONE (Roxicodone) 5 mg immediate release tablet Take 1 tablet (5 mg) by mouth every 4 hours if needed for severe pain (7 - 10). 11/19/2024 Active pyridoxine (Vitamin B-6) 50 mg tablet Take 1 tablet (50 mg) by mouth once daily. 01/15/2024 Active thiamine 100 mg tablet Take 1 tablet (100 mg) by mouth once daily. 05/09/2022 Active tiZANidine (Zanaflex) 4 mg tablet Take 1 tablet (4 mg) by mouth 4 times a day. 02/21/2024 Active traZODone (Desyrel) 100 mg tablet Take 2 tablets (200 mg) by mouth once daily at bedtime. 01/25/2024 Active venlafaxine (Effexor) 75 mg tablet Take 1 tablet (75 mg) by mouth twice a day. 01/14/2024 Active methocarbamol (Robaxin) 750 mg tablet Take 1 tablet (750 mg) by mouth every 8 hours if needed. 02/29/2024 Active psyllium (Metamucil) 0.4 gram capsule Take 5 capsules by mouth 4 times a day. Active multivitamin tablet Take 1 tablet by mouth once daily. Active Active Problems Problem Noted Date Diagnosed Date BMI 31.0-31.9,adult 12/21/2024 Never smoked tobacco 12/21/2024 Hypothyroidism 12/21/2024 Encounter to discuss test results 12/21/2024 Encounter to establish care 12/21/2024 Hypertrophic cardiomyopathy (Multi) 12/21/2024 Family History Medical History Relation Name Comments Heart disease Father Heart disease Mother Relation Name Status Comments Father Mother Social History Tobacco Use Types Packs/Day Years Used Date Smoking Tobacco: Never Smokeless Tobacco: Never Alcohol Use Standard Drinks/Week Comments Never 0 (1 standard drink = 0.6 oz pur e alcohol) Comments Unknown Sex and Gender Information Value Date Recorded Sex Assigned at Not on file Legal Sex Female 12:53 PM EST Gender Identity Not on file Sexual Orientation Not on file Last Filed Vital Signs Vital Sign Reading Time Taken Comments Blood Pressure 122/62 12/21/2024 9:53 AM EDT Pulse 82 12/21/2024 9:52 AM EDT Temperature 35.9 C (96.6 F) 04/23/2022 3:27 PM EDT Respiratory Rate 18 04/23/2022 3:27 PM EDT Oxygen Saturation 100% 04/23/2022 3:27 PM EDT Inhaled Oxygen Concentration - - Weight 98 kg (216 lb) 12/21/2024 9:52 AM EDT Height 175.3 cm (5' 9 ) 12/21/2024 9:52 AM EDT Body Mass Index 31.9 12/21/2024 9:52 AM EDT Plan of Treatment Health Maintenance Due Date Last Done Comments CT Colonography 1976 FIT-DNA (Cologuard) 1975 FIT 1975 Lipid Panel 1976 MMR Vaccines (1 of 1 - Standard series) 1977 Hepatitis C Screening 1994 Hepatitis B Vaccines (1 of 3 - 19+ 3-dose series) 1995 HPV/Cotest 1997 Cervical Cancer Screening 06/17/2009 Pap Smear 06/17/2009 06/17/2006 DTaP/Tdap/Td Vaccines (2 - Td or Tdap) 04/20/2016 04/20/2006 Mammogram 11/20/2023 11/19/2022, 11/19/2022 COVID-19 Vaccine ( - season) 2024 Influenza Vaccine (#1) 2025 , 08/09/2023, 06/16/2022, Additional history exists Yearly Adult Physical 08/18/2025 08/17/2024, 022 TSH Level 12/08/2025 12/08/2024, 07/29/2024 Zoster Vaccines (2 of 2) 2026 05/27/2024 Diabetes Screening 04/15/2027 04/15/2024, 0 02/03/2024, 04/28/2023, Additional history exists Sigmoidoscopy 04/23/2028 04/23/2023, 04/10/2023 Colonoscopy 04/23/2033 04/23/2023 Colorectal Cancer Screening 04/23/2033 Pneumococcal Vaccine: Pediatrics and At-Risk Adult Patients Aged Out 05/17/2010 No longer eligible based on patient's age to complete this topic Irritable Bowel Syndrome Discontinued 023, 04/23/2023, 04/10/2023, Additional history exists HIV Screening Completed 12/08/2024 HIB Vaccines Aged Out No longer eligi ble based on patient's age to complete this topic HPV Vaccines (No Doses Required) Completed Hepatitis A Vaccines Aged Out No long er eligible based on patient's age to complete this topic IPV Vaccines Aged Out No longer eligi ble based on patient's age to complete this topic Meningococcal Vaccine Aged Out No oneil jignesh eligible based on patient's age to complete this topic Rotavirus Vaccines Aged Out No longer eligible based on patient's age to complete this topic Medical Devices Implanted Type Area Corrections Officer Device Identifier Shelf Expiration Date Model / Serial / Lot Endo, Alice 60 Med/Thck Artic Reload Case [id number] Implanted:Qty: 1 on 12/23/2021 by Brittany Multani MD Staple Abdomen [facility] [id number] / / Description:Converted from [facility]. Please see archived information for full log information. Endo, Clip, 5mm, M/L Case [id number] Implanted:Qty: 1 on 12/23/2021 by Brittany Multani MD Staple Abdomen [facility] [id number] / / Description:Converted from [facility]. Please see archived information for full log information. Procedures Procedure Name Priority Date/Time Associated Diagnosis Comments BASIC METABOLIC PANEL STAT 04/28/2023 11:31 AM EDT EGD Routine 04/24/2022 1:01 PM EDT CONVERTED SIMULATION ENGINEER CYTOLOGY Routine 06/17/2006 12:00 AM EDT from Last 3 Months or Most Recently Relevant to Health Maintenance Results * Basic Metabolic Panel (04/28/2023 11:31 AM EDT) Glucose 86 74 - 99 mg/dL [facility] Sodium 140 136 - 145 mmol/L [facility] Potassium 4.2 3.5 - 5.3 mmol/L [facility] Chloride 106 98 - 107 mmol/L [facility] Bicarbonate 27 21 - 32 mmol/L [facility] Anion Gap 11 10 - 20 mmol/L [facility] Urea Nitrogen 10 6 - 23 mg/dL [facility] Creatinine 0.57 0.50 - 1.05 mg/dL [facility] GFR Female >90 >90 mL/min/1.7 3m2 [facility] Comment: CALCULATIONS OF ESTIMATED GFR ARE PERFORMED USING THE 2020 CKD-EPI STUDY REFIT EQUATION WITHOUT THE RACE VARIABLE FOR THE IDMS-TRACEABLE CREATININE METHODS. https://jasn.asnjournals.org/content//ASN.8617726656 Calcium 9.1 8.6 - 10.3 mg/dL [facility] 04/28/2023 11:3 1 AM EDT 04/28/2023 11:35 AM EDT us Mike Lawler DO LAB BLOOD ORDERABLES Kristi l Result [facility] [address] [place] [address] * Esophagogastroduodenoscopy (EGD) (04/24/2022 1:01 PM EDT) Anatomical Region Laterality Modality Endoscopy 04/24/2022 1:01 PM EDT Narrative 10/14/2022 8:02 AM EST Patient Name: Melina Taveras Procedure Date: 04/24/2022 1:01 PM Date of : 1975 Admit Type: Emergency Department Site: [facility] Endoscopy Room 1 Ethnicity: Not or Race: White Attending MD: Brittany Multani MD, [id number] Procedure: Upper GI endoscopy Indications: Epigastric abdominal pain, Post-bariatric anastomotic stenosis, Follow-up of post-bariatric anastomotic stenosis, For therapy of post-bariatric anastomotic stenosis, Nausea with vomiting, Status post Dylon-en-Y Providers: Brittany Multani MD (Doctor), Auar King RN (Nurse) , Helena Parrish, Ornament Setter Referring: Yg James MD Medicines: Monitored Anesthesia Care Complications: No immediate complications. Procedure: Pre-Anesthesia Assessment: - Prior to the [...] difficulty. The patient tolerated the procedure well. Findings: The Z-line was regular and was found 35 cm from the incisors. Evidence of a Dylon-en-Y gastrojejunostomy was found. The gastrojejunal anastomosis was characterized by congestion, erythema, friable mucosa, mild stenosis and ulceration. This was traversed. The kfzrb-dz-cbdnqwd limb was characterized by healthy appearing mucosa. A TTS dilator was passed through the scope. Dilation with a 12-13.5-15 mm balloon dilator was performed to 15 mm. The dilation site was examined following endoscope reinsertion and showed moderate improvement in luminal narrowing. Estimated blood loss was minimal. Exam of the jejunum was otherwise normal. Estimated Blood Loss: Estimated blood loss was minimal. Impression: - Z-line regular, 35 cm from the incisors. - Dylon-en-Y gastrojejunostomy with gastrojejunal anastomosis characterized by congestion, erythema, friable mucosa, ulceration and mild stenosis. Dilated. - No specimens collected. Recommendation: - [facility]. Procedure Code(s): --- Professional --- 06968, Esophagogastroduodenoscopy, flexible, transoral; with dilation of gastric/duodenal stricture(s) (eg, balloon, bougie) Diagnosis Code(s): --- Professional --- Z98.0, Intestinal bypass and anastomosis status R10.13, Epigastric pain K95.89, Other complications of other bariatric procedure R11.2, Nausea with vomiting, unspecified CPT copyright 2021 [employer]. All rights reserved. The codes documented in this report are preliminary and upon child nutrition director review may be revised to meet current compliance requirements. Attending Participation: I was present and participated during the entire procedure, including non-frost portions. Brittany Multani MD 04/24/2022 1:55:16 PM This report has been signed electronically. Number of Addenda: 0 Note Initiated On: 04/24/2022 1:01 PM Total Procedure Duration Time 0 hours 12 minutes 25 seconds Procedure Note Brittany Multani MD - 10/17/2024 Patient Name: Melina Taveras Procedure Date: 04/24/2022 1:01 PM Date of : 1975 Admit Type: Emergency Department Site: [facility] Endoscopy Room 1 Ethnicity: Not or Race: White Attending MD: Brittany Multani MD, [id number] Procedure: Upper GI endoscopy Indications: Epigastric abdominal pain, Post-bariatricanastomotic stenosis, Follow-up of post-bariatric anastomotic stenosis, For therapy of post-bariatric anastomotic stenosis, Nausea with vomiting, Status [id number] Providers: Brittany Multani MD (Doctor), Aura King RN (Nurse) , Helena Parrish, Ornament Setter Referring: Yg James MD Medicines: Monitored Anesthesia Care Complications: No immediate complications. Procedure: Pre-Anesthesia Assessment: - Prior to the procedure, a History and Physicalwas performed, and patient medications and allergieswere reviewed. The patient's tolerance of previous anesthesia was also reviewed. The risks andbenefits of the procedure and the sedation options and risks were discussed with the patient. All questions were answered, and informed consent was obtained. Prior Anticoagulants: The patient has taken noanticoagulant or antiplatelet agents. ASA Grade Assessment: II -A patient with mild systemic disease. After reviewing the risks and benefits, the patient was deemed in satisfactory condition to undergo the procedure. After obtaining informed consent, the endoscope was passed under direct vision. Throughout theprocedure, the patient's blood pressure, pulse, and oxygen saturations were monitored continuously. Theendoscope was introduced through the mouth, and advanced tothe afferent and efferent jejunal loops. The upper GI endoscopy was accomplished without difficulty. The patient tolerated the procedure well. Findings: The Z-line was regular and was found 35 cm from the incisors. Evidence of a Dylon-en-Y gastrojejunostomy was found. Thegastrojejunal anastomosis was characterized by congestion, erythema, friablemucosa, mild stenosis and ulceration. This was traversed. Rzdvnjnh-de-lkygdwb limb was characterized by healthy appearing mucosa. A TTS dilator was passed through the scope. Dilation with a 12-13.5-15 mm balloondilator was performed to 15 mm. The dilation site was examined following endoscope reinsertion and showed moderate improvement in luminal narrowing. Estimated blood loss was minimal. Exam of the jejunum was otherwise normal. Estimated Blood Loss: Estimated blood loss was minimal. Impression: - Z-line regular, 35 cm from the incisors. - Dylon-en-Y gastrojejunostomy with gastrojejunal anastomosis characterized by congestion, erythema, friable mucosa, ulceration and mild stenosis.Dilated. - No specimens collected. Recommendation: - [facility]. Procedure Code(s): --- Professional --- 22698, Esophagogastroduodenoscopy, flexible, transoral; with dilation of gastric/duodenal stricture(s) (eg, balloon, bougie) Diagnosis Code(s): --- Professional --- Z98.0, Intestinal bypass and anastomosis status R10.13, Epigastric pain K95.89, Other complications of other bariatric procedure R11.2, Nausea with vomiting, unspecified CPT copyright 2021 [employer]. All rights reserved. The codes documented in this report are preliminary and upon child nutrition director reviewmay be revised to meet current compliance requirements. Attending Participation: I was present and participated during the entire procedure, including non-frost portions. Brittany Multani MD 04/24/2022 1:55:16 PM This report has been signed electronically. Number of Addenda: 0 Note Initiated On: 04/24/2022 1:01 PM Total Procedure Duration Time 0 hours 12 minutes 25 seconds us Yg James MD ENDOSCOPY PROCEDURE ORDERABLES Edited Result - Final * CONVERTED SIMULATION ENGINEER CYTOLOGY (06/17/2006 12:00 AM EDT) Pathology Report Date of Procedure: 06/17/2006 Pathologist: [facility], Cytology Date Reported: 07/06/2006 Date Received: 06/17/2006 Submitting Physician: KRANTHI ARNOLD MD Attending Physician: KRANTHI ARNOLD MD FINAL CYTOLOGICAL INTERPRETATION A. THINPREP PAP ECTOCERVICAL/ENDOCE RVICAL: Specimen Adequacy: SATISFACTORY FOR EVALUATION. Quality Indicator: Absence of endocervical/transf ormation zone elements. General Categorization: NEGATIVE FOR INTRAEPITHELIAL LESION OR MALIGNANCY. Ancillary Testing: Specimen does not meet the requisition-stated criteria for HPV testing. See Pap test interpretation above. This specimen has been analyzed by the UpDownPrep Imaging System (BarEye.), an automated imaging and review system, which assists the laboratory in evaluating cells on ThinPrep Pap tests. Following automated imaging, selected [place] from every slide were reviewed by a data analyst and/or pathologist. Electronically Signed Out By [facility], Cytology//MJC/PWM By the signature on this report, the individual or group listed as making the Final Interpretation/Diag nosis certifies that they have reviewed this case. Educational Note: Cervical cytology is a screening procedure primarily for squamous cancers and precursors and has associated false-negative and false-positive results as evidenced by published data. Your patient's test should be interpreted in this context, together with patient's history and clinical findings. Regular sampling and follow-up of unexplained clinical signs and symptoms are recommended to minimize false negative results. Clinical History Date of Last Menstrual Period: 06.01.06 Other Clinical Conditions: Reflex HPV Testing Ordered Annual Source of Specimen A: THINPREP PAP ECTOCERVICAL/ENDOCE RVICAL [facility] Department of Pathology [address] [place] [address] [facility] CONVERTED FINAL DIAGNOSIS A. THINPREP PAP ECTOCERVICAL/ENDOCE RVICAL: Specimen Adequacy: SATISFACTORY FOR EVALUATION. Quality Indicator: Absence of endocervical/transf ormation zone elements. General Categorization: NEGATIVE FOR INTRAEPITHELIAL LESION OR MALIGNANCY. Ancillary Testing: Specimen does not meet the requisition-stated criteria for HPV testing. See Pap test interpretation above. [facility] CONVERTED DIAGNOSIS COMMENT This specimen has been analyzed by the UpDownPrep Imaging System (BarEye.), an automated imaging and review system, which assists the laboratory in evaluating cells on ThinPrep Pap tests. Following automated imaging, selected [place] from every slide were reviewed by a data analyst and/or pathologist. [facility] CONVERTED FINAL REPORT PDF LINK TO COPY AND PASTE \copathshare\copat h\PDF [id number].pdf [facility] TPP ECTO/ENDO 06/17/2006 06/17/2006 2:06 PM EDT us Kranthi Arnold MD LAB CYTOLOGY ORDERAB LES Final Result [facility] [address] [place] [address] from Last 3 Months or Most Recently Relevant to Health Maintenance Insurance [facility] Member Subscriber Plan / Payer (Ef fective 2022-Present) Name:Melina Taveras Member ID:[id number] Relation to Subscriber:Spouse Name:MIAH TAVERAS Subscriber ID:[id number] Date of :1975 (Home) Address: [address] [place] [address] Payer ID:[id number] (NAIC) Type:Not on file Address: [address] Care Teams Rotary Kiln Operator Relationship Specialty Start Date End Date Shlomo Hu MD [address] [place] [address] PCP - General Internal Medicine 12/21/24
--- OUTSIDE RECORDS SUMMARY | 2025-03-28 09:08 | XMS_ITS | Encounter Summary ---
Author Organization [facility] Address [address] [place] [address] Care Team Providers Care Benefits Specialist Recruiter Name Role Phone Jacob Sharp Unavailable Rasheeda Newton RD Unavailable [phone] Unavailable [phone] Fritz HENDERSON MD, Shlomo Momin Primary Care Provider [phone] Yuan Miller MD, PhD Unavailable [phone] Source Comments In the event this information is protected by the Federal Confidentiality of Alcohol and Drug AbusePatient Records regulations: The Federal rules restrict any use of the information to criminally investigate or prosecute any alcohol or drug abuse patient.[facility] Encounter Details Date Type Department Care Team (Late st Contact Info) Description 12/14/2024 Patient Msg Rheumatology [address] [id number] Provider, [facility] Lab and X-ray Orders Social History Tobacco Use Types Packs/Day Years Used Date Smoking Tobacco: Never Smokeless Tobacco: Never Alcohol Use Standard Drinks/Week Comments Not Currently 0 (1 standard drink = 0.6 oz pur e alcohol) [facility] Utilities Answer Date Recorded In the past [...] PHQ-2 Answer Date Recorded PHQ-2 score 4 12/07/2024 Hunger Vital Sign Answer Date Recorded Within the past 12 months, y ou worried that your food would run out before you got the money to buy more. Sometimes true Within the past 12 months, t he food you bought just didn't last and you didn't have money to get more. Sometimes true 12/2024 PRAPARE - Transportation Answer Date Re corded [...] any time in the past 12 m [facility], were you homeless or living in a [place] facility (including now)? No 10/18/2024 Area Deprivation Index Answer Date Reagan rded National Score (1-100), lower number is lower ri sk 63 03/05/2023 State Score (1-10), lower number is lower risk 4 03/05/2023 Data from: https://www.neighborhoodatlas.[facility]/. Last address used for calculation [address] 03/05/2023 Comments No Sex and [...] Donna Olea RN documented in this encounter Plan of Treatment Upcoming Encounters Date Type Department Care Team (Latest Contact Info) Description 03/31/2025 11:00 AM EDT Office Visit General Surgery [address] [place] [address] Michael Mora PA-C [address] [place] [address] follow up- add on ok'd by Michael 04/07/2025 1:00 PM EDT [facility] [address] [phone] Agatha Kim PSYD [address] [phone] 04/19/2025 11:00 AM EDT [facility] [address] [place] [address] Joann Loera APRN.METAL TANK BUILDER [address] [phone] Cognitive movement issues 04/21/2025 8:30 AM EDT [facility] [address] [place] [address] [place] [address] f/u TF forula tolerance and hydration 05/29/2025 9:00 AM T [facility] [address] [place] [address] Johanna Martinez MD [facility] [address] [place] [address] 3 month follow up 06/28/2025 10:00 AM T [facility] [address] [place] [phone] [place] [address] [phone] Follow up for pain documented as of this encounter Visit Diagnoses Not on filedocumented in this encounter Care Teams Benefits Specialist Recruiter Relationship Specialty Start Date End Date Shlomo Hu II, MD [address] [place] [address] PCP - General Internal Medicine 10/06/23 Jacob Sharp [address] [place] [address] Referring 04/30/[address] [phone] Registered Dietitian Nutrition 06/24/[address] [phone] Registered Dietitian Nutrition 08/27/23 Yuan Miller MD, PhD [address] [phone] Surgeon General Surgery 02/03/24 documented as of this encounter
--- OUTSIDE RECORDS SUMMARY | 2025-03-28 09:08 | XMS_ITS | Encounter Summary ---
Author Organization [facility] Address [address] [facility] [place] [address] Care Team Providers Care Engineering Instructor Name Role Phone Shlomo Hu MD Primary Care Provider [phone] Jess Marsh LPN Unavailable Esthela Tesfaye MODEL BUILDER DISPLAY Unavailable [phone] Encounter Details Date Type Department Care Team (Late st Contact Info) Description 01/31/2025 Abstract [facility] [address] [facility] 110 [place] [address] Shlomo Hu MD [address] [facility] 110 [place] [address] Social History Tobacco Use Types Packs/Day Years [...] How often do you attend chur or anglican services? Never 04/18/2024 Do you belong to any clubs o r organizations such as pentecostal groups, unions, fraternal or athletic groups, or [...] Recorded Patient Health Questionnaire-2 Score 0 01/05/2025 [facility] of Occupat ional Health - [...] place to sleep or slept in a senior care (including now)? No 03/01/2023 Housing Stability Vital [...] any time in the past 12 m [facility], were you homeless or living in a senior care (including now)? 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 Not on file Not on file Not on file documented as of this encounter Plan of Treatment Upcoming Encounters Date Type Department Care Team (Late st Contact Info) Description 04/12/2025 9:50 AM EDT Office Visit [facility] ENDO[facility]OLOG[facility] [address] [place] [address] Tanya Lozano MD [address] [place] [address] 04/20/2025 3:00 PM EDT Office Visit [facility] PODIATRY [address] [place] [address] Snony Rodriguez DPM [address] [facility] [address] [place] [address] 05/04/2025 2:50 PM EDT Office Visit [facility] P[facility] [address] [place] [address] Sonny Rodriguez DPM 3006 [facility] 5 [place] [address] documented as of this encounter Visit Diagnoses Not on filedocumented in this encounter Additional Health Concerns Assessment Noted Time PHQ-9 Depression Total Score: 18 024 9:42 AM EDT documented as of this encounter Care Teams Engineering Instructor Relationship Specialty Start Date End Date Shlomo Hu MD [address] [place] [address] PCP - General Internal Medicine 02/15/23 Jess Marsh LPN [address] [place] [address] 12/06/24 Esthela Tesfaye, KIRA [address] [place] [address] Flyer Repairer Family Medicine 02/03/25 documented as of this encounter
--- OUTSIDE RECORDS SUMMARY | 2025-03-28 09:08 | XMS_ITS | Encounter Summary ---
Author Organization [facility] Address [address] [facility] [place] [address] Care Team Providers Care Math Instructor Name Role Phone Shlomo Hu MD Primary Care Provider [phone] Claribel Scott RN Unavailable [phone] Jess Marsh REFRESH TECHNICIAN Unavailable Esthela Tesfaye MAINTENANCE MACHINE REPAIRER Unavailable [phone] Encounter Details Date Type Department Care Team (Late st Contact Info) Description 11/21/2024 Abstract [facility] [address] [facility] 110 [place] [address] Shlomo Hu MD 112 [facility] 110 [place] [address] Social History Tobacco Use Types Packs/Day Years [...] often do you attend chur ch or zoroastrian services? Never 04/18/2024 Do you belong to any clubs o r organizations such as buddhist groups, unions, fraternal or athletic groups, or [...] Date Recorded Patient Health Questionnaire-2 Score 0 11/10/2024 [facility] of Occupat ional Health - Occupational [...] place to sleep or slept in a care home (including now)? No 03/01/2023 Housing Stability [...] any time in the past 12 m [facility], were you homeless or living in a care home (including now)? 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 Not on file Not on file documented as of this encounter Plan of Treatment Upcoming Encounters Date Type Department Care Team (Late st Contact Info) Description 04/12/2025 9:50 AM EDT Office Visit [facility] ENDO[facility] [address] [place] [address] Tanya Lozano MD [address] [place] [address] 04/20/2025 3:00 PM EDT Office Visit [facility] P[facility] [address] [facility] 120 [place] [address] Sonny Rodriguez DPLudmila 3006 [facility] 5 [place] [address] 05/04/2025 2:50 PM EDT Office Visit [facility] POD[facility] [address] [facility] 120 [place] [address] Sonny Rodriguez DPLudmila [address] [address] documented as of this encounter Visit Diagnoses Not on filedocumented in this encounter Additional Health Concerns Assessment Noted Time PHQ-9 Depression Total Score: 18 024 9:42 AM EDT documented as of this encounter Care Teams Math Instructor Relationship Specialty Start Date End Date Shlomo Hu MD [address] [facility] 110 [place] [address] PCP - General Internal Medicine 02/15/23 Claribel Scott, RN [address] [place] [address] Licensed Practical Nurse Family Medicine 10/21/24 12/06/24 Jess Marsh LPN [address] [facility] 110 [place] [address] 12/06/24 Esthela Tesfaye LSW [address] [place] [address] Ornamental Metal Fabricator Apprentice Family Medicine 02/03/25 documented as of this encounter
--- OUTSIDE RECORDS SUMMARY | 2025-03-28 09:08 | XMS_ITS | Encounter Summary ---
Author Organization [facility] Address [address] [place] [address] Care Team Providers Care Program Medical Director Name Role Phone Shlomo Hu MD Primary Care Provider [phone] Jess Marsh LPN Unavailable Esthela Tesfaye WORKERS' COMPENSATION MEDIATOR Unavailable [phone] Encounter Details Date Type Department Care Team (Late st Contact Info) Description 01/09/2025 Abstract [facility] [address] [facility] 110 [place] [address] Shlomo Hu MD [address] [facility] 110 [place] [address] Social History Tobacco Use Types Packs/Day Years [...] How often do you attend chur or orthodox services? Never 04/18/2024 Do you belong to any clubs o r organizations such as mandaeism groups, unions, fraternal or athletic groups, or [...] Recorded Patient Health Questionnaire-2 Score 0 01/05/2025 [facility] of Occupat ional [...] slept in a intermediate (including now)? No 03/01/2023 Housing Stability Vital [...] any time in the past 12 m [facility], were you homeless or living in a intermediate (including now)? 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 Not on file Not on file documented as of this encounter Plan of Treatment Upcoming Encounters Date Type Department Care Team (Late st Contact Info) Description 04/12/2025 9:50 AM EDT Office Visit [facility] [address] [place] [address] Tanya Lozano MD [address] [place] [address] 04/20/2025 3:00 PM EDT Office Visit [facility] P[facility] [address] [place] [address] Sonny Rodriguez DPM [address] [facility] [address] [place] [address] 05/04/2025 2:50 PM EDT Office Visit [facility] POD[facility] [address] [place] [address] Sonny Rodriguez DPM 3006 [facility] 5 [place] [address] documented as of this encounter Visit Diagnoses Not on filedocumented in this encounter Additional Health Concerns Assessment Noted Time PHQ-9 Depression Total Score: 18 024 9:42 AM EDT documented as of this encounter Care Teams Program Medical Director Relationship Specialty Start Date End Date Shlomo Hu MD [address] [place] [address] PCP - General Internal Medicine 02/15/23 Jess Marsh LPN [address] [place] [address] 12/06/24 Esthela Tesfaye, KIRA [address] [place] [address] Decorating Machine Tender Family Medicine 02/03/25 documented as of this encounter
--- OUTSIDE RECORDS SUMMARY | 2025-03-28 09:08 | XMS_ITS | Encounter Summary ---
Author Organization [facility] Address [address] [facility] [place] [address] Care Team Providers Care Gravure Press Operator Name Role Phone Shlomo Hu MD Primary Care Provider [phone] Claribel Scott RN Unavailable [phone] Jess Marsh AIR CREW OFFICER Unavailable Esthela Tesfaye STEEL WHEEL ENGRAVER Unavailable [phone] Encounter Details Date Type Department Care Team (Late st Contact Info) Description 12/06/2024 Abstract [facility] [address] [facility] 110 [place] [address] Shlomo Hu MD 112 [facility] 110 [place] [address] Social History Tobacco Use Types [...] often do you attend chur ch or anglican services? Never 04/18/2024 Do you [...] Recorded Patient Health Questionnaire-2 Score 0 12/01/2024 [facility] of Occupat ional Health - [...] place to sleep or slept in a penitentiary (including now)? No 03/01/2023 Housing Stability Vital [...] any time in the past 12 m [facility], were you homeless or living in a penitentiary (including now)? 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 Not on file Not on file documented as of this encounter Plan of Treatment Upcoming Encounters Date Type Department Care Team (Late st Contact Info) Description 04/12/2025 9:50 AM EDT Office Visit [facility] [address] [place] [address] Tanya Lozano MD [address] [place] [address] 04/20/2025 3:00 PM EDT Office Visit [facility] POD[facility] [address] [facility] 120 [place] [address] Sonny Rodriguez DPLudmila 3006 [facility] 5 [place] [address] 05/04/2025 2:50 PM EDT Office Visit [facility] POD[facility] [address] [facility] 120 [place] [address] Sonny Rodriguez DPLudmila [address] [address] documented as of this encounter Visit Diagnoses Not on filedocumented in this encounter Additional Health Concerns Assessment Noted Time PHQ-9 Depression Total Score: 18 024 9:42 AM EDT documented as of this encounter Care Teams Gravure Press Operator Relationship Specialty Start Date End Date Shlomo Hu MD [address] [facility] 110 [place] [address] PCP - General Internal Medicine 02/15/23 Claribel Scott, RN [address] [place] [address] Licensed Practical Nurse Family Medicine 10/21/24 12/06/24 Jess Marsh LPN [address] [facility] 110 [place] [address] 12/06/24 Esthela Tesfaye LSW [address] [place] [address] Pluck Separator Family Medicine 02/03/25 documented as of this encounter
--- OUTSIDE RECORDS SUMMARY | 2025-03-28 09:08 | XMS_ITS | Encounter Summary ---
Author Organization [facility] Address [address] [place] [address] Care Team Providers Care Civil Design Technician Name Role Phone Jacob Sharp Unavailable Rasheeda Newton RD Unavailable [phone] Unavailable [phone] Fritz HENDERSON MD, Shlomo Momin Primary Care Provider [phone] Yuan Miller MD, PhD Unavailable [phone] Source Comments In the event this information is protected by the Federal Confidentiality of Alcohol and Drug AbusePatient Records regulations: The Federal rules restrict any use of the information to criminally investigate or prosecute any alcohol or drug abuse patient.[facility] Encounter Details Date Type Department Care Team (Late st Contact Info) Description 12/02/2024 Patient Msg Gastroenterology [address] [id number] Provider, Ccf Tube change Social History Tobacco Use Types Packs/Day Years Used Date Smoking Tobacco: Never Smokeless Tobacco: Never Alcohol Use Standard Drinks/Week Comments Not Currently 0 (1 standard drink = 0.6 oz pur e alcohol) [facility] Utilities Answer Date Recorded In the past 12 months has th e [employer], gas, oil, or water company threatened to [...] PHQ-2 Answer Date Recorded PHQ-2 score 4 11/21/2024 Hunger Vital Sign Answer Date Recorded Within [...] place to sleep or slept in a custodial (including now)? No 02/16/2024 Housing Stability Vital [...] any time in the past 12 m [facility], were you homeless or living in a custodial (including now)? No 10/18/2024 Area Deprivation Index Answer Date Reagan rded National Score (1-100), lower number is lower ri sk 63 03/05/2023 State Score (1-10), lower number is lower risk 4 03/05/2023 Data from: https://www.neighborhoodatlas.medicine.[facility]/. Last address used for calculation [address] 03/05/2023 Comments No Sex [...] AM EDT Office Visit General Surgery 9[address] [place] [address] Michael Mora PA-C [address] [place] [address] follow up- add on ok'd by Michael 04/07/2025 1:[address] PM ED[address] [facility] Neurological Protestant [address] [place] [address] Agatha Kim PSYD [address] [place] [address] 04/19/2025 11:00 AM EDT [facility] Neurological Protestant [address] [place] [address] Joann Loera APRN.CYTOGENETIC TECHNOLOGIST [address] [place] [address] Cognitive movement issues 04/21/2025 8:30 AM T [facility] Nutrition Therapy 2048 [place] [address] Tiffany Banks, RD [address]00 [place] [address] f/u TF forula tolerance and hydration 05/29/2025 9:00 AM T [facility] Gastroenterology 20[address] [place] [address] Johanna Martinez MD [facility] [address] [place] [address] 3 month follow up 06/28/2025 10:00 AM T [facility] Neurology Pain [address] [place] [phone] [place] [address] [place] [phone] Follow up for pain documented as of this encounter Visit Diagnoses Not on filedocumented in this encounter Care Teams Civil Design Technician Relationship Specialty Start Date End Date Shlomo Hu II, MD [address] [place] [address] [place] [address] PCP - General Internal Medicine 10/06/23 Jacob Sharp [address] [place] [address] Referring 04/30/[address] [phone] Registered Dietitian Nutrition 06/24/[address] [place] [phone] Registered Dietitian Nutrition 08/27/23 Yuan Miller MD, PhD [address] [place] [phone] Surgeon General Surgery 02/03/24 documented as of this encounter
--- OUTSIDE RECORDS SUMMARY | 2025-03-28 09:08 | XMS_ITS | Encounter Summary ---
Author Organization [facility] Address [address] [place] [address] Care Team Providers Care News Director Name Role Phone Jacob Sharp Unavailable Rasheeda Newton RD Unavailable [phone] Unavailable [phone] Fritz HENDERSON MD, Shlomo Momin Primary Care Provider [phone] Yuan Miller MD, PhD Unavailable [phone] Source Comments In the event this information is protected by the Federal Confidentiality of Alcohol and Drug AbusePatient Records regulations: The Federal rules restrict any use of the information to criminally investigate or prosecute any alcohol or drug abuse patient.[facility] Encounter Details Date Type Department Care Team (Late st Contact Info) Description 12/01/2024 Patient Msg Gastroenterology [address] [phone] Provider, Ccf External wipes for use Social History Tobacco Use Types Packs/Day Years Used Date Smoking Tobacco: Never Smokeless Tobacco: Never Alcohol Use Standard Drinks/Week Comments Not Currently 0 (1 standard drink = 0.6 oz pur e alcohol) [facility] Utilities Answer Date Recorded In the [...] place to sleep or slept in a chcf (including now)? No 02/16/2024 Housing Stability Vital [...] any time in the past 12 m [facility], were you homeless or living in a chcf (including now)? No 10/18/2024 Area Deprivation Index Answer Date Reagan rded National Score (1-100), lower number is lower ri sk 63 03/05/2023 State Score (1-10), lower number is lower risk 4 03/05/2023 Data from: https://www.neighborhoodatlas.[facility]/. Last address used for calculation [address] 03/05/2023 Comments No Sex and [...] Assessment Author No 08/02/2024 3:06 PM Donna Olae RN * Are you blind or do [...] AM EDT Office Visit General Surgery 9300 [place] [address] Michael Mora PA-C [address]00 [place] [address] follow up- add on ok'd by Michael 04/07/2025 1:00 PM EDT [facility] Neurological Buddhism [address] [place] [phone] Agatha Kim PSYD [address] [place] [phone] 04/19/2025 11:00 AM EDT [facility] Neurological Buddhism [address] [place] [address] Joann Loera APRN.MOLD BLOWER [address] [place] [phone] Cognitive movement issues 04/21/2025 8:30 AM EDT [facility] Nutrition Therapy [address]48 [place] [address] [place] [address] f/u TF forula tolerance and hydration 05/29/2025 9:00 AM T [facility] Gastroenterology 2048 [place] [address] Johanna Martinez MD [facility] [address] [place] [address] 3 month follow up 06/28/2025 10:00 AM T [facility] Neurology Pain [address] [place] [address]708606 [place] [address] [place] [phone] Follow up for pain documented as of this encounter Visit Diagnoses Not on filedocumented in this encounter Care Teams News Director Relationship Specialty Start Date End Date Shlomo Hu II, MD [address] [place] [address] [place] [address] PCP - General Internal Medicine 10/06/23 Jacob Sharp [address] [place] [address] Referring 04/30/[address] [phone] Registered Dietitian Nutrition 06/24/[address] [place] [phone] Registered Dietitian Nutrition 08/27/23 Yuan Miller MD, PhD [address] [place] [phone] Surgeon General Surgery 02/03/24 documented as of this encounter
--- OUTSIDE RECORDS SUMMARY | 2025-03-28 09:08 | XMS_ITS | Encounter Summary ---
Author Organization [facility] Address [address] [place] [address] Care Team Providers Care Shipmaster Name Role Phone Sean Ruiz DO Primary Care Provider [phone] Jacob Sharp Unavailable Rasheeda Newton RD Unavailable [phone] Unavailable [phone] Fritz HENDERSON MD, Shlomo Momin Primary Care Provider [phone] Yuan Miller MD, PhD Unavailable [phone] Source Comments In the event this information is protected by the Federal Confidentiality of Alcohol and Drug AbusePatient Records regulations: The Federal rules restrict any use of the information to criminally investigate or prosecute any alcohol or drug abuse patient.[facility] Encounter Details Date Type Department Care Team (Late st Contact Info) Description 11/30/2020 Patient [place] [address] Provider, Ccf Cosmetic Estimate Letter Social History Tobacco Use Types Packs/Day Years Used Date Smoking Tobacco: Never Cigarettes Smokeless Tobacco: Never Alcohol Use Standard Drinks/Week Comments Yes 0 (1 standard drink = 0.6 oz pur e alcohol) [facility] Answer Date Recorded Q1: How often do you have a drink containing alc ohol? Monthly or less 09/27/2019 Q2: How many drinks containi ng alcohol do you have on a typical day when you are drinking? 1 or 2 09/27/2019 Frequency of Binge Drinking Not on file 09/14 Area Deprivation Index Answer Date Reagan rded National Score (1-100), lower number is lower ri sk Not on file 08/20/2020 State Score (1-10), lower number is lower risk N ot on file 08/20/2020 Data from: https://www.neighborhoodatlas.[facility]/. 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 No / Unsure 11/22/2020 4:07 PM EST documented as of this encounter Functional Status * Are you deaf or do you have serious difficulty hearing? Answer Date of Assessment Author No 05/01/2014 10:10 AM Li Etienne LPN * Are you blind or do you have serious difficulty seeing, even when wearing glasses? Answer Date of Assessment Author No 05/01/2014 10:10 AM Li Etienne LPN * Do you have serious difficulty walking or climbing stairs? Answer Date of Assessment Author No 05/01/2014 10:10 AM Li Etienne LPN * Do you have difficulty dressing or bathing? Answer Date of Assessment Author No 05/01/2014 10:10 AM Li Etienne LPN * Because of a physical, mental, or emotional condition, do you have difficulty doing errands alone such as visiting a doctor's office or shopping? Answer Date of Assessment Author No 05/01/2014 10:10 AM Li Etienne LPN documented as of this encounter Mental Status * Because of a physical, mental, or emotional condition, do you have serious difficulty concentrating, remembering, or making decisions? Answer Entry Date Author No 05/01/2014 10:10 AM EDT Li Stanley LPN documented in this encounter Plan of Treatment Upcoming Encounters Date Type Department Care Team (Latest Contact Info) Description 03/31/2025 11:00 AM EDT Office Visit General Surgery [address] [place] [phone] Michael Mora PA-C [address] [place] [phone] follow up- add on ok'd by Michael 04/07/2025 1:00 PM EDT [facility] Neurological Synagogue [address] [place] [phone] Agatha Kim PSYD [address] [place] [phone] 04/19/2025 11:00 AM EDT [facility] Neurological Synagogue [address] [place] [phone] Joann Loera APRN.BUILDING SERVICES SUPERVISOR [address] [place] [address] Cognitive movement issues 04/21/2025 8:30 AM EDT [facility] Nutrition Therapy [address] [place] [phone] Tiffany Banks, RD [address] [place] [address] f/u TF forula tolerance and hydration 05/29/2025 9:00 AM EDT [facility] Gastroenterology [address] [address] Johanna Martinez MD [facility] [address] [address] 3 month follow up 06/28/2025 10:00 AM EDT [facility] Neurology Pain [address] [place] [address] [place] [address] [place] [address] Follow up for pain documented as of [...] documented as of this encounter Care Teams Shipmaster Relationship Specialty [place] [address] [place] [address] PCP - General Family Medicine 07/09/12 10/05/23 Shlomo Hu II, MD [address] [place] [address] PCP - General Internal Medicine 10/06/23 Jacob Sharp [address] [place] [address] Referring 04/30/[address] [place] [address] Registered Dietitian Nutrition 06/24/[address] [place] [address] Registered Dietitian Nutrition 08/27/23 Yuan Miller MD, PhD [address] [place] [address] Surgeon General Surgery 02/03/24 documented as of this encounter
--- OUTSIDE RECORDS SUMMARY | 2025-03-28 09:08 | XMS_ITS | Encounter Summary ---
Author Organization [facility] Address [address] [place] [address] Care Team Providers Care Loss Prevention Operations Manager Name Role Phone Sean Ruiz DO Primary Care Provider [phone] Jacob Sharp Unavailable Rasheeda Newton RD Unavailable [phone] Unavailable [phone] Fritz HENDERSON MD, Shlomo Momin Primary Care Provider [phone] Yuan Miller MD, PhD Unavailable [phone] Source Comments In the event this information is protected by the Federal Confidentiality of Alcohol and Drug AbusePatient Records regulations: The Federal rules restrict any use of the information to criminally investigate or prosecute any alcohol or drug abuse patient.[facility] Encounter Details Date Type Department Care Team (Late st Contact Info) Description 06/25/2022 Patient Msg Pre Anesthesia [address] [place] [address] Provider, [facility] Pre Anesthesia Consultation Clinic Appointment Social History Tobacco Use Types Packs/Day Years [...] N ot on file 08/20/2020 Data from: https://www.neighborhoodatlas.medicine.[facility]/. Last address used for calculation Not on [...] suspected to have Coronavirus/COVID-19? No / Unsure 06/25/2022 2:34 PM EDT documented as of this encounter Functional Status * Are you deaf or do you have serious difficulty hearing? Answer Date of Assessment Author No 06/18/2022 4:13 PM EDT Anita Gomes RN * Are you blind or do you have serious difficulty seeing, even when wearing glasses? Answer Date of Assessment Author No 06/18/2022 4:13 PM EDT Anita Gomes RN * Do you have serious difficulty walking or climbing stairs? Answer Date of Assessment Author No 06/18/2022 4:13 PM EDT Anita Gomes RN * Do you have difficulty dressing or bathing? Answer Date of Assessment Author No 06/18/2022 4:13 PM EDT Anita Gomes RN * Because of a physical, mental, or emotional condition, do you have difficulty doing errands alone such as visiting a doctor's office or shopping? Answer Date of Assessment Author No 06/18/2022 4:13 PM EDT Anita Gomes RN documented as of this encounter Mental Status * Because of a physical, mental, or emotional condition, do you have serious difficulty concentrating, remembering, or making decisions? Answer Entry Date Author No 06/18/2022 4:13 PM EDT Anita Gmoes RN documented in this encounter Plan of Treatment Upcoming Encounters Date Type Department Care Team (Latest Contact Info) Description 03/31/2025 11:00 AM EDT Office Visit General Surgery [address] [place] [address] Michael Mora PA-C [address] [id number] follow up- add on ok'd by Michael 04/07/2025 1:00 PM EDT [facility] Neurological Anglican [address] [place] [address] Agatha Kim PSYD [address] [id number] 04/19/2025 11:00 AM EDT [facility] Neurological Anglican [address] [id number] Joann Loera APRN.BEHAVIORAL HEALTH CLINICIAN [address] [id number] Cognitive movement issues 04/21/2025 8:30 AM T [facility] Nutrition Therapy [address] [place] [address] Tiffany Banks, RD [address] [id number] f/u TF forula tolerance and hydration 05/29/2025 9:00 AM EDT [facility] Gastroenterology [address] [phone] Johanna Martinez MD [facility] [address] [place] [address] 3 month follow up 06/28/2025 10:00 AM EDT [facility] Neurology Pain [address] [place] [address] [place] [address] [place] [address] Follow up for pain documented as of [...] documented as of this encounter Care Teams Loss Prevention Operations Manager Relationship Specialty [place] [address] [place] [address] PCP - General Family Medicine 07/09/12 10/05/23 Shlomo Hu II, MD [address] [place] [address] PCP - General Internal Medicine 10/06/23 Jacob Sharp [address] [place] [address] Referring 04/30/[address] [place] [address] Registered Dietitian Nutrition 06/24/[address] [place] [address] Registered Dietitian Nutrition 08/27/23 Yuan Miller MD, PhD [address] [place] [address] Surgeon General Surgery 02/03/24 documented as of this encounter
--- OUTSIDE RECORDS SUMMARY | 2025-03-28 09:08 | XMS_ITS | Encounter Summary ---
Author Organization [facility] Address [address] [facility] [place] [address] Care Team Providers Care Donor Services Manager Name Role Phone Shlomo Hu MD Primary Care Provider [phone] Jess Marsh LPN Unavailable Esthela Tesfaye STUNT DOUBLE Unavailable [phone] Encounter Details Date Type Department Care Team (Late st Contact Info) Description 01/31/2025 Abstract [facility] [address] [facility] 110 [place] [address] Shlomo Hu MD [address] [facility] 110 [place] [address] Social History Tobacco Use Types Packs/Day Years [...] How often do you attend chur or alevism services? Never 04/18/2024 Do you belong to any clubs o r organizations such as yazidism groups, unions, fraternal or athletic groups, or [...] Patient Health Questionnaire-2 Score 0 01/05/2025 [facility] of Occupat ional Health - Occupational Stress [...] place to sleep or slept in a skilled nursing (including now)? No 03/01/2023 Housing Stability Vital [...] time in the past 12 m [facility], were you homeless or living in a skilled nursing (including now)? 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 Not on file Not on file documented as of this encounter Plan of Treatment Upcoming Encounters Date Type Department Care Team (Late st Contact Info) Description 04/12/2025 9:50 AM EDT Office Visit [facility] ENDOCRINOLOGY [address] [place] [address] Tanya Lozano MD [address] [place] [address] 04/20/2025 3:00 PM EDT Office Visit [facility] PODIATRY [address] [place] [address] Sonny Rodriguez DPM [address] [facility] [address] [place] [address] 05/04/2025 2:50 PM EDT Office Visit [facility] POD[facility]AT[facility] [address] [place] [address] Sonny Rodriguez DPM 3[address] [facility] 5 [place] [address] documented as of this encounter Visit Diagnoses Not on filedocumented in this encounter Additional Health Concerns Assessment Noted Time PHQ-9 Depression Total Score: 18 024 9:42 AM EDT documented as of this encounter Care Teams Donor Services Manager Relationship Specialty Start Date End Date Shlomo Hu MD [address] [place] [address] PCP - General Internal Medicine 02/15/23 Jess Marsh LPN [address] [place] [address] 12/06/24 Esthela Tesfaye, KIRA [address] [place] [address] Rivet Driver Family Medicine 02/03/25 documented as of this encounter
--- OUTSIDE RECORDS SUMMARY | 2025-03-28 09:08 | XMS_ITS | Encounter Summary ---
Author Organization [facility] Address [address] [facility] [place] [address] Care Team Providers Care Tube Drawing Supervisor Name Role Phone Shlomo Hu MD Primary Care Provider Claribel Scott RN Unavailable [phone] Jess Marsh WHEAT COMBINE DRIVER Unavailable Esthela Tesfaye ARCHITECT INTERNSHIP Unavailable [phone] Encounter Details Date Type Department Care Team (Late st Contact Info) Description 11/21/2024 Abstract [facility] FM [address] [facility] 110 [place] [address] Shlomo Hu MD 112 [facility] 110 [place] [address] Social History Tobacco Use Types [...] often do you attend chur ch or gnosticist services? 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 Not on file Not on file documented as of this encounter Plan of Treatment Upcoming Encounters Date Type Department Care Team (Late st Contact Info) Description 04/12/2025 9:50 AM EDT Office Visit [facility] ENDO[facility] [address] [place] [address] Tanya Lozano MD [address] [place] [address] 04/20/2025 3:00 PM EDT Office Visit [facility] POD[facility]AT[facility] [address] [facility] 120 [place] [address] Sonny Rodriguez DPLudmila 3[address] [facility] 5 [place] [address] 05/04/2025 2:50 PM EDT Office Visit [facility] POD[facility]AT[facility] [address] [facility] 120 [place] [address] Sonny Rodriguez DPLudmial [address] [address] documented as of this encounter Visit Diagnoses Not on filedocumented in this encounter Additional Health Concerns Assessment Noted Time PHQ-9 Depression Total Score: 18 024 9:42 AM EDT documented as of this encounter Care Teams Tube Drawing Supervisor Relationship Specialty Start Date End Date Shlomo Hu MD [address] [facility] 110 [place] [address] PCP - General Internal Medicine 02/15/23 Claribel Scott, RN [address] [place] [address] Licensed Practical Nurse Family Medicine 10/21/24 12/06/24 Jess Marsh LPN [address] [facility] 110 [place] [address] 12/06/24 Esthela Tesfaye LSW [address] [place] [address] Vpk Teacher Family Medicine 02/03/25 documented as of this encounter
--- OUTSIDE RECORDS SUMMARY | 2025-03-28 09:08 | XMS_ITS | Encounter Summary ---
Author Organization [facility] Address [address] [facility] [place] [address] Care Team Providers Care Automotive Sales Manager Name Role Phone Shlomo Hu MD Primary Care Provider [phone] Claribel Scott RN Unavailable [phone] Jess Marsh TOURISM RADIO PRESENTER Unavailable Esthela Tesfaye SENIOR FRONT END ENGINEER Unavailable [phone] Encounter Details Date Type Department Care Team (Late st Contact Info) Description 11/22/2024 Abstract [facility] FM [address] [facility] 110 [place] [address] Shlomo Hu MD 112 [facility] 110 [place] [address] Social History Tobacco Use Types [...] often do you attend chur ch or jew services? 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 Not on file Not on file documented as of this encounter Plan of Treatment Upcoming Encounters Date Type Department Care Team (Late st Contact Info) Description 04/12/2025 9:50 AM EDT Office Visit [facility] [address] [place] [address] Tanya Lozano MD [address] [place] [address] 04/20/2025 3:00 PM EDT Office Visit [facility] [address] [facility] 120 [place] [address] Sonny Rodriguez DPLudmila 3006 [facility] 5 [place] [address] 05/04/2025 2:50 PM EDT Office Visit [facility] [address] [facility] 120 [place] [address] Sonny Rodriguez DPLudmila [address] [address] documented as of this encounter Visit Diagnoses Not on filedocumented in this encounter Additional Health Concerns Assessment Noted Time PHQ-9 Depression Total Score: 18 024 9:42 AM EDT documented as of this encounter Care Teams Automotive Sales Manager Relationship Specialty Start Date End Date Shlomo Hu MD [address] [facility] 110 [place] [address] PCP - General Internal Medicine 02/15/23 Claribel Scott, RN [address] [place] [address] Licensed Practical Nurse Family Medicine 10/21/24 12/06/24 Jess Marsh LPN [address] [facility] 110 [place] [address] 12/06/24 Esthela Tesfaye LSW [address] [place] [address] Suction Roller Family Medicine 02/03/25 documented as of this encounter
--- OUTSIDE RECORDS SUMMARY | 2025-03-28 09:08 | XMS_ITS | Encounter Summary ---
Author Organization [facility] Address [address] [place] [address] Care Team Providers Care Roll Dough Divider Name Role Phone Jacob Sharp Unavailable Rasheeda Newton RD Unavailable [phone] Unavailable [phone] Fritz HENDERSON MD, Shlomo Momin Primary Care Provider [phone] Yuan Miller MD, PhD Unavailable [phone] Source Comments In the event this information is protected by the Federal Confidentiality of Alcohol and Drug AbusePatient Records regulations: The Federal rules restrict any use of the information to criminally investigate or prosecute any alcohol or drug abuse patient.[facility] Encounter Details Date Type Department Care Team (Late st Contact Info) Description 11/30/2024 Get Medical Advice PAIN [place] [address] [place] [address] Johann Echeverria MD [address] [place] [address] [place] [address] Medicine Social History Tobacco Use Types Packs/Day Years Used Date Smoking Tobacco: Never Smokeless Tobacco: Never Alcohol Use Standard Drinks/Week Comments Not Currently 0 (1 standard drink = 0.6 oz pur e alcohol) [facility] Utilities Answer Date Recorded In the [...] in a senior care (including now)? No 02/16/2024 Housing Stability Vital [...] any time in the past 12 m [facility], were you homeless or living in a senior care (including now)? No 10/18/2024 Area Deprivation Index Answer Date Reagan rded National Score (1-100), lower number is lower ri sk 63 03/05/2023 State Score (1-10), lower number is lower risk 4 03/05/2023 Data from: https://www.neighborhoodatlas.medicine.[facility]/. Last address used for calculation [address] 03/05/2023 Comments No Sex [...] Donna Olea RN documented in this encounter Miscellaneous Notes * Telephone Encounter - Daniela Ford LPN - 12/21/2024 10:58 AM EDT Patient requesting to have increase of gabapentin per Commercial Real Estate Underwriter recommendations Spoke with patient name and confirmed. Regarding journvax and my chart message. Informed received approval via fax for Journavx confirmed with patient insurance and [facility] patient pharmacy that medication has been approved and awaiting at pharmacy to be picked up. Patient states she is aware she received a call last night will picker med today. * Telephone Encounter - Daniela Ford LPN - 12/14/2024 2:59 PM EDT Spoke with Brianna Gomez from [facility]. She informed this nurse that the medication has been approved from[facility] clinical review team through a prior auth but the patient has to wait for medication to be approved and released from her actual insurance. Requested Brianna Gomez call patient to explain in detail which she agreed. Brianna placed on hold this nurse called patient to inform her that [facility] rep will be calling to explain why she was told the medication has not been approved. Patient states she will wait for her call. * Telephone Encounter - Daniela Ford LPN - 12/13/2024 10:25 AM EDT Spoke with Aleah from [facility] Journavx has been approved for a 3 month supply as of today. [facility] will generate approval letter and fax to office and mail letter to patient. Per [facility] hourly shift manager Aleah information will be sent to DDM to dispense Journavx and pharmacy will contact patient. * Telephone Encounter - Daniela Ford LPN - 12/09/2024 11:08 AM EDT Called [facility] spoke with Yanci to follow up regarding status of Journavx. Per Yanci it looks they were working on it the other day when this nurse called but now the case ispending again. Asked Yanci to carla case urgent patient has been waiting for approximately a week now for a response regarding medication authorization status. Inquired if their was any further information needed from our clinic office assistant states no further documentation is needed someone will reach out to the office if that is to change. Confirmed fax number to send case details to [phone] and reference number for case remains as #[id number]. Yanci states she has marked case urgent and will fax case details to office once complete. * Telephone Encounter - Daniela Ford LPN - 12/07/2024 10:59 AM EDT Spoke with Yanci from [employer] Patient's case currently being reviewed unable to give final determination date. Will fax determination once finalized. * Telephone Encounter - Daniela Ford LPN - 12/02/2024 11:16 AM EDT Spoke with rep Quan from [email or web address]. Prescriber to complete non formulary exception form and medical necessity if warranted fax back to [phone]. Requested documents collected. Form on provider's desk and aware. * Telephone Encounter - Daniela Ford LPN - 12/01/2024 12:53 PM EDT See patient my chart requesting medication. * Telephone Encounter - Elin Polk RN - 11/30/2024 4:40 PM EDT Pt is identified by name and birthdate: Yes Patient calls once again to see if she could get any pain medications to hold her over till PA is received Please advise documented in this encounter Plan of Treatment Upcoming Encounters Date Type Department Care Team (Latest Contact Info) Description 03/31/2025 11:00 AM EDT Office Visit General Surgery [address] [place] [address] Michael Mora PA-C [address] [phone] follow up- add on ok'd by Michael 04/07/2025 1:00 PM EDT [facility] Neurological Latter-Day [address] [place] [address] Agatha Kim PSYD [address] [phone] 04/19/2025 11:00 AM EDT [facility] Neurological Latter-Day [address] [phone] Joann Loera APRN.PLUSH DRESSER [address] [id number] Cognitive movement issues 04/21/2025 8:30 AM EDT [facility] Nutrition Therapy [address] [id number] Tiffany Banks, RD [address] [id number] f/u TF forula tolerance and hydration 05/29/2025 9:00 AM EDT [facility] Gastroenterology [address] [phone] Johanna Martinez MD [facility] [address] [place] [address] 3 month follow up 06/28/2025 10:00 AM EDT [facility] Neurology Pain [address] [place] [address] [place] [address] [place], [place] [phone] Follow up for pain documented as of this encounter Visit Diagnoses Not on filedocumented in this encounter Care Teams Roll Dough Divider Relationship Specialty Start Date End Date Shlomo Hu II, MD [address] [facility] 110 [place] [address] PCP - General Internal Medicine 10/06/23 Jacob Sharp [address] [place] [address] Referring 04/30/[address] [place] [address] Registered Dietitian Nutrition 06/24/[address] [place] [address] Registered Dietitian Nutrition 08/27/23 Yuan Miller MD, PhD [address] [place], [place] [phone] Surgeon General Surgery 02/03/24 documented as of this encounter
--- OUTSIDE RECORDS SUMMARY | 2025-03-28 09:08 | XMS_ITS | Encounter Summary ---
Author Organization [facility] Address [address] [facility] [place] [address] Care Team Providers Care Program Director/Morning Show Host Name Role Phone Shlomo Hu MD Primary Care Provider [phone] Jess Marsh LPN Unavailable Esthela Tesfaye CROWN CERAMIST Unavailable [phone] Encounter Details Date Type Department Care Team (Late st Contact Info) Description 12/14/2024 Abstract [facility] [address] [facility] 110 [place] [address] Shlomo Hu MD [address] [facility] 110 [place] [address] Social History Tobacco Use Types Packs/Day Years [...] How often do you attend chur or latter-day services? Never 04/18/2024 Do you belong to any clubs o r organizations such as caodaism groups, unions, fraternal or athletic groups, or [...] Recorded Patient Health Questionnaire-2 Score 0 12/01/2024 [facility] of Occupat ional Health - Occupational [...] place to sleep or slept in a fdc (including now)? No 03/01/2023 Housing Stability Vital [...] time in the past 12 m [facility], were you homeless or living in a fdc (including now)? 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 Not on file Not on file documented as of this encounter Plan of Treatment Upcoming Encounters Date Type Department Care Team (Late st Contact Info) Description 04/12/2025 9:50 AM EDT Office Visit [facility] [address] [place] [address] Tanya Lozano MD [address] [place] [address] 04/20/2025 3:00 PM EDT Office Visit [facility] POD[facility] [address] [place] [address] Sonny Rodriguez DPM [address] [facility] [address] [place] [address] 05/04/2025 2:50 PM EDT Office Visit [facility] POD[facility]ATRY [address] [place] [address] Sonny Rodriguez DPM 3006 [facility] 5 [place] [address] documented as of this encounter Visit Diagnoses Not on filedocumented in this encounter Additional Health Concerns Assessment Noted Time PHQ-9 Depression Total Score: 18 024 9:42 AM EDT documented as of this encounter Care Teams Program Director/Morning Show Host Relationship Specialty Start Date End Date Shlomo Hu MD [address] [place] [address] PCP - General Internal Medicine 02/15/23 Jess Marsh LPN [address] [place] [address] 12/06/24 Esthela Tesfaye, KIRA [address] [place] [address] Farm Owner Operator Family Medicine 02/03/25 documented as of this encounter
--- OUTSIDE RECORDS SUMMARY | 2025-03-28 09:08 | XMS_ITS | Encounter Summary ---
Author Organization [facility] Address [address] [place] [address] Care Team Providers Care Telecommunications Specialist Name Role Phone Jacob Sharp Unavailable Rasheeda Newton RD Unavailable [phone] Unavailable [phone] Fritz HENDERSON MD, Shlomo Momin Primary Care Provider [phone] Yuan Miller MD, PhD Unavailable [phone] Source Comments In the event this information is protected by the Federal Confidentiality of Alcohol and Drug AbusePatient Records regulations: The Federal rules restrict any use of the information to criminally investigate or prosecute any alcohol or drug abuse patient.[facility] Reason for Visit * Reason Comments Orders Encounter Details Date Type Department Care Team (Late st Contact Info) Description 12/14/2024 Telephone Rheumatology [address] [phone] [place] [address] [place] [address] Orders Social History Tobacco Use Types Packs/Day Years Used Date Smoking Tobacco: Never Smokeless Tobacco: Never Alcohol Use Standard Drinks/Week Comments Not Currently 0 (1 standard drink = 0.6 oz pur e alcohol) [facility] Utilities Answer Date Recorded In the [...] any time in the past 12 m [facility], were you homeless or living in a senior care (including now)? No 10/18/2024 Area Deprivation Index Answer Date Reagan rded National Score (1-100), lower number is lower ri sk 63 03/05/2023 State Score (1-10), lower number is lower risk 4 03/05/2023 Data from: https://www.neighborhoodatlas.medicine.[facility]/. Last address used for calculation [address] 270 03/05/2023 Comments No Sex [...] encounter Miscellaneous Notes * Telephone Encounter - Nola Muñoz - 12/14/2024 2:15 PM EDT Faxed 12/14 lab orders to [facility] at [phone]. Received fax confirmation. * Telephone Encounter - Nola Muñoz - 12/14/2024 9:57 AM EDT Faxed 12/14 lab and x-ray orders to [facility] at [phone]. Received fax confirmation. documented in this encounter Plan of Treatment Upcoming Encounters Date Type Department Care Team (Latest Contact Info) Description 03/31/2025 11:00 AM EDT Office Visit General Surgery [address] [phone] Michael Mora PA-C [address] [place] [address] follow up- add on ok'd by Michael 04/07/2025 1:00 PM EDT [facility] [address] [place] [address] Agatha Kim PSYD [address] [place] [address] 04/19/2025 11:00 AM EDT [facility] [address] [place] [address] Joann Loera APRN.PEOPLESOFT DEVELOPER 9500 [place] [address] Cognitive movement issues 04/21/2025 8:30 AM EDT [facility] Nutrition Therapy [address] [address] Tiffany Banks, RD [address] [place] [address] f/u TF forula tolerance and hydration 05/29/2025 9:00 AM EDT [facility] Gastroenterology [address] [place] [address] Johanna Martinez MD [facility] [address] [address] 3 month follow up 06/28/2025 10:00 AM EDT [facility] Neurology Pain [address] [place] [address] [place] [address] [place], [place] [phone] Follow up for pain documented as of this encounter Visit Diagnoses Not on filedocumented in this encounter Care Teams Telecommunications Specialist Relationship Specialty Start Date End Date Shlomo Hu II, MD 112 [facility] 110 [place] [address] PCP - General Internal Medicine 10/06/23 Jacob Sharp [address] [phone] Referring 04/30/[address] [address] [phone] Registered Dietitian Nutrition 06/24/[address] [place] [address] Registered Dietitian Nutrition 08/27/23 Yuan Miller MD, PhD 9500 [place] [address] Surgeon General Surgery 02/03/24 documented as of this encounter
--- OUTSIDE RECORDS SUMMARY | 2025-03-28 09:08 | XMS_ITS | Encounter Summary ---
Author Organization [facility] Address [address] [place] [address] Care Team Providers Care Rn Home Health Name Role Phone Jacob Sharp Unavailable Rasheeda Newton RD Unavailable [phone] Unavailable [phone] Fritz HENDERSON MD, Shlomo Momin Primary Care Provider [phone] Yuan Miller MD, PhD Unavailable [phone] Source Comments In the event this information is protected by the Federal Confidentiality of Alcohol and Drug AbusePatient Records regulations: The Federal rules restrict any use of the information to criminally investigate or prosecute any alcohol or drug abuse patient.[facility] Encounter Details Date Type Department Care Team (Late st Contact Info) Description 11/29/2024 GI Preprocedure Call Gastroenterology [address] [phone] Yumiko Stevens RN Social History Tobacco Use Types Packs/Day Years Used Date Smoking Tobacco: Never Smokeless Tobacco: Never Alcohol Use Standard Drinks/Week Comments Not Currently 0 (1 standard drink = 0.6 oz pur e alcohol) [facility] Utilities Answer Date Recorded In the [...] in a long term (including now)? No 02/16/2024 Housing Stability Vital [...] time in the past 12 m [facility], were you homeless or living in a long term (including now)? No 10/18/2024 Area Deprivation Index Answer Date Reagan rded National Score (1-100), lower number is lower ri sk 63 03/05/2023 State Score (1-10), lower number is lower risk 4 03/05/2023 Data from: https://www.neighborhoodatlas.medicine.[facility]/. Last address used for calculation [address] 270 03/05/2023 Comments No Sex [...] Donna Olea RN documented in this encounter Nursing Notes * Yumiko Stevens RN - 11/29/2024 12:05 PM EDT GI Pre-Procedure Spoke with patient: Yes Confirmed date scheduled and patient report time: Yes Procedure Planned:Esophagogastroduodenoscopy(EGD) with or without biopies based on clinical findings, removal of polyps or lesions Is the patient on blood thinners?no Procedure Instructions given to patient: Yes, and they verbalized their understanding of instructions given Patient instructed to have family/friend present for procedure transport home:Patient/patient international representative was told that if they do not have a responsible adult accompany them to their procedure; and remain in the endoscopy area until they are discharged; that their procedure cannot be done with s edation or anesthesia and may be cancelled. and They verbalized their understanding and agree to have a responsible adult accompany the patient to their procedure and remain in the endoscopy area. Any barriers to Patient learning: Patient/Patient Senior Reliability Engineer responded appropriately on phone. Type of instruction given: Verbal by telephone contact. documented in this encounter Plan of Treatment Upcoming Encounters Date Type Department Care Team (Latest Contact Info) Description 03/31/2025 11:00 AM EDT Office Visit General Surgery 9300 [place] [address] Michael Mora PA-C [address] [phone] follow up- add on ok'd by Michael 04/07/2025 1:00 PM EDT [facility] Neurological [facility] 9[address] [place] [address] Agatha Kim PSYD [address]00 [place] [address] 04/19/2025 11:00 AM EDT [facility] 9[address] [place] [address] Joann Loera APRN.SENIOR SALES EXECUTIVE 9500 [place], [place] [id number] Cognitive movement issues 04/21/2025 8:30 AM EDT [facility] Nutrition Therapy [address] [place] [address] f/u TF forula tolerance and hydration 05/29/2025 9:00 AM EDT [facility] Gastroenterology [address] [address] Johanna Martinez MD [facility] [address] [phone] 3 month follow up 06/28/2025 10:00 AM EDT [facility] Neurology Pain [address] [place] [phone] [place] [address] [place] [address] Follow up for pain documented as of this encounter Visit Diagnoses Not on filedocumented in this encounter Care Teams Rn Home Health Relationship Specialty Start Date End Date Shlomo Hu II, MD [address] [facility] 110 [place] [address] PCP - General Internal Medicine 10/06/23 Jacob Sharp [address] [phone] Referring 04/30/[address] [place] [address] [phone] Registered Dietitian Nutrition 06/24/[address]00 [place] [address] Registered Dietitian Nutrition 08/27/23 Yuan Miller MD, PhD 9500 [place], [place] [phone] Surgeon General Surgery 02/03/24 documented as of this encounter
--- OUTSIDE RECORDS SUMMARY | 2025-03-28 09:08 | XMS_ITS | Encounter Summary ---
Author Organization [facility] Address [address] [place] [address] Care Team Providers Care Email Campaign Specialist Name Role Phone Jacob Sharp Unavailable Rasheeda Newton RD Unavailable [phone] Unavailable [phone] Fritz HENDERSON MD, Shlomo Momin Primary Care Provider [phone] Yuan Miller MD, PhD Unavailable [phone] Source Comments In the event this information is protected by the Federal Confidentiality of Alcohol and Drug AbusePatient Records regulations: The Federal rules restrict any use of the information to criminally investigate or prosecute any alcohol or drug abuse patient.[facility] Encounter Details Date Type Department Care Team (Late st Contact Info) Description 11/23/2024 Patient Msg Gastroenterology [address] [phone] Provider, Ccf issue with coverage for Viokace Social History Tobacco Use Types Packs/Day Years Used Date Smoking Tobacco: Never Smokeless Tobacco: Never Alcohol Use Standard Drinks/Week Comments Not Currently 0 (1 standard drink = 0.6 oz pur e alcohol) [facility] Utilities Answer Date Recorded In [...] slept in a retirement (including now)? No 02/16/2024 Housing Stability Vital [...] in the past 12 m [facility], were you homeless or living in a retirement (including now)? No 10/18/2024 Area Deprivation Index Answer Date Reagan rded National Score (1-100), lower number is lower ri sk 63 03/05/2023 State Score (1-10), lower number is lower risk 4 03/05/2023 Data from: https://www.neighborhoodatlas.medicine.[facility]/. Last address used for calculation [address] 270 03/05/2023 Comments No Sex [...] AM EDT Office Visit General Surgery [address] [phone] Michael Mora PA-C [address] [address] [phone] follow up- add on ok'd by Michael 04/07/2025 1:00 PM EDT [facility] Neurological [facility] [address] [address] [phone] Agatha Kim PSYD [address] [address] [phone] 04/19/2025 11:00 AM EDT [facility] Neurological [facility] [address] [address] [phone] Joann Loera APRN.SOCIAL WORK SPECIALIST 9500 [place] [address] Cognitive movement issues 04/21/2025 8:30 AM EDT [facility] Nutrition Therapy 2048 [place] [address] Tiffany Banks, RD [address] [phone] f/u TF forula tolerance and hydration 05/29/2025 9:00 AM T [facility] Gastroenterology 2048 [place] [address] Johanna Martinez MD [facility] [address] [place], [place] [phone] 3 month follow up 06/28/2025 10:00 AM T [facility] Neurology Pain [address] [address] [phone] [place] [address] [place] [address] Follow up for pain documented as of this encounter Visit Diagnoses Not on filedocumented in this encounter Care Teams Email Campaign Specialist Relationship Specialty Start Date End Date Shlomo Hu II, MD [address] [facility] 110 [place] [address] PCP - General Internal Medicine 10/06/23 Jacob Sharp [address] [place] [address] Referring 04/30/[address] [phone] Registered Dietitian Nutrition 06/24/[address] [address] [phone] Registered Dietitian Nutrition 08/27/23 Yuan Miller MD, PhD 5254 [place] [address] Surgeon General Surgery 02/03/24 documented as of this encounter
--- OUTSIDE RECORDS SUMMARY | 2025-03-28 09:08 | XMS_ITS | Encounter Summary ---
Author Organization [facility] Address [address] [facility] [place] [address] Care Team Providers Care Heel Gouger Name Role Phone Shlomo Hu MD Primary Care Provider [phone] Claribel Scott RN Unavailable [phone] Jess Marsh SHOE PLANNER Unavailable Esthela Tesfaye MILL CONTROLLER Unavailable [phone] Encounter Details Date Type Department Care Team (Late st Contact Info) Description 11/22/2024 Abstract [facility] [address] [facility] 110 [place] [address] Shlomo Hu MD 112 [facility] 110 [place] [address] Social History Tobacco Use Types [...] often do you attend chur ch or baptism services? Never 04/18/2024 Do you belong to any clubs o r organizations such as moravian groups, unions, fraternal or athletic groups, or [...] Recorded Patient Health Questionnaire-2 Score 0 11/10/2024 [facility] - Occupational [...] slept in a custodial (including now)? No 03/01/2023 Housing Stability Vital [...] any time in the past 12 m [facility], were you homeless or living in a custodial (including now)? 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 Not on file Not on file documented as of this encounter Plan of Treatment Upcoming Encounters Date Type Department Care Team (Late st Contact Info) Description 04/12/2025 9:50 AM EDT Office Visit [facility] ENDOCR[facility] [address] [place] [address] Tanya Lozano MD [address] [place] [address] 04/20/2025 3:00 PM EDT Office Visit [facility] PODIAT[facility] [address] [facility] 120 [place] [address] Sonny Rodriguez DPLudmila 3006 [facility] 5 [place] [address] 05/04/2025 2:50 PM EDT Office Visit [facility] POD[facility] [address] [facility] 120 [place] [address] Sonny Rodriguez DPLudmila [address] [address] documented as of this encounter Visit Diagnoses Not on filedocumented in this encounter Additional Health Concerns Assessment Noted Time PHQ-9 Depression Total Score: 18 024 9:42 AM EDT documented as of this encounter Care Teams Heel Gouger Relationship Specialty Start Date End Date Shlomo Hu MD [address] [facility] 110 [place] [address] PCP - General Internal Medicine 02/15/23 Claribel Scott, RN [address] [place] [address] Licensed Practical Nurse Family Medicine 10/21/24 12/06/24 Jess Marsh LPN [address] [facility] 110 [place] [address] 12/06/24 Esthela Tesfaye LSW [address] [place] [address] Alteration Hand Family Medicine 02/03/25 documented as of this encounter
--- OUTSIDE RECORDS SUMMARY | 2025-03-28 09:08 | XMS_ITS | Encounter Summary ---
Author Organization [facility] Address [address] [facility] [place] [address] Care Team Providers Care Printer Small Print Shop Name Role Phone Shlomo Hu MD Primary Care Provider [phone] Claribel Scott RN Unavailable [phone] Jess Marsh SECURED ENTRANCE MONITOR Unavailable Esthela Tesfaye ENVIRONMENTAL COMMUNICATIONS SPECIALIST Unavailable [phone] Encounter Details Date Type Department Care Team (Late st Contact Info) Description 11/24/2024 Abstract [facility] [address] [facility] 110 [place] [address] Shlomo Hu MD 112 [facility] 110 [place] [address] Social History Tobacco Use Types [...] often do you attend chur ch or lutheran services? Never 04/18/2024 Do you belong to any clubs o r organizations such as hinduism groups, unions, fraternal or athletic groups, or [...] Recorded Patient Health Questionnaire-2 Score 0 11/10/2024 [facility] Occupat ional Health - Occupational Stress [...] place to sleep or slept in a correction (including now)? No 03/01/2023 Housing Stability Vital [...] were you homeless or living in a correction (including now)? 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 Not on file Not on file documented as of this encounter Plan of Treatment Upcoming Encounters Date Type Department Care Team (Late st Contact Info) Description 04/12/2025 9:50 AM EDT Office Visit [facility] [address] [place] [address] Tanya Lozano MD [address] [place] [address] 04/20/2025 3:00 PM EDT Office Visit [facility] PODIATRY [address] [facility] 120 [place] [address] Sonny Rodriguez DPLudmila 3006 [facility] 5 [place] [address] 05/04/2025 2:50 PM EDT Office Visit [facility] POD[facility] [address] [facility] 120 [place] [address] Sonny Rodriguez DPLudmila [address] [address] documented as of this encounter Visit Diagnoses Not on filedocumented in this encounter Additional Health Concerns Assessment Noted Time PHQ-9 Depression Total Score: 18 024 9:42 AM EDT documented as of this encounter Care Teams Printer Small Print Shop Relationship Specialty Start Date End Date Shlomo Hu MD [address] [facility] 110 [place] [address] PCP - General Internal Medicine 02/15/23 Claribel Scott, RN [address] [place] [address] Licensed Practical Nurse Family Medicine 10/21/24 12/06/24 Jess Marsh LPN [address] [facility] 110 [place] [address] 12/06/24 Esthela Tesfaye LSW [address] [place] [address] Deputy Chief Counsel Family Medicine 02/03/25 documented as of this encounter
--- OUTSIDE RECORDS SUMMARY | 2025-03-28 09:08 | XMS_ITS | Encounter Summary ---
Author Organization [facility] Address [address] [place] [address] Care Team Providers Care Document Management Analyst Name Role Phone Jacob Sharp Unavailable Rasheeda Newton RD Unavailable [phone] Unavailable [phone] Fritz HENDERSON MD, Shlomo Momin Primary Care Provider [phone] Yuan Miller MD, PhD Unavailable [phone] Source Comments In the event this information is protected by the Federal Confidentiality of Alcohol and Drug AbusePatient Records regulations: The Federal rules restrict any use of the information to criminally investigate or prosecute any alcohol or drug abuse patient.[facility] Encounter Details Date Type Department Care Team (Late st Contact Info) Description 12/14/2024 Patient Msg Orth [facility] [place] [address] [place] [address] Provider, Ccf Appointment Social History Tobacco Use Types Packs/Day Years Used Date Smoking Tobacco: Never Smokeless Tobacco: Never Alcohol Use Standard Drinks/Week Comments Not Currently 0 (1 standard drink = 0.6 oz pur e alcohol) [facility] Utilities Answer Date Recorded In the past 12 months has th e electric, Lingt, oil, or water [employer] threatened to shut off services in your [...] slept in a fdc (including now)? No 02/16/2024 Housing Stability Vital [...] living in a fdc (including now)? No 10/18/2024 Area Deprivation Index Answer Date Reagan rded National Score (1-100), lower number is lower ri sk 63 03/05/2023 State Score (1-10), lower number is lower risk 4 03/05/2023 Data from: https://www.neighborhoodatlas.medicine.[facility]/. Last address used for calculation [address] 270 03/05/2023 Comments No Sex [...] AM EDT Office Visit General Surgery 9300 [place] [address] Michael Mora PA-C 9500 [place] [address] follow up- add on ok'd by Michael 04/07/2025 1:00 PM EDT [facility] Neurological [facility] 9300 [place] [address] Agatha Kim PSYD [address] [place] [address] [phone] 04/19/2025 11:00 AM EDT [facility] Neurological [facility] [address] [place] [address] [phone] Joann Loera APRN.BARN AND PROPERTY MANAGER [address] [place] [address] [phone] Cognitive movement issues 04/21/2025 8:30 AM EDT [facility] Nutrition Therapy 2048 [place] [address] Tiffany Banks, RD 9500 [place] [address] f/u TF forula tolerance and hydration 05/29/2025 9:00 AM T [facility] Gastroenterology 2048 [place] [address] Johanna Martinez MD [facility] [address] [place] [address] 3 month follow up 06/28/2025 10:00 AM T [facility] Neurology Pain [address] [place] [address] [place] [address] [address] [address] [phone] Follow up for pain documented as of this encounter Visit Diagnoses Not on filedocumented in this encounter Care Teams Document Management Analyst Relationship Specialty Start Date End Date Shlomo Hu II, MD [address] [facility] 110 [place] [address] PCP - General Internal Medicine 10/06/23 Jacob Sharp [address] [place] [address] Referring 04/30/[address] [phone] Registered Dietitian Nutrition 06/24/[address] 950 [place] [address] Registered Dietitian Nutrition 08/27/23 Yuan Miller MD, PhD 9501 [place] [address] Surgeon General Surgery 02/03/24 documented as of this encounter
--- OUTSIDE RECORDS SUMMARY | 2025-03-28 09:08 | XMS_ITS | Encounter Summary ---
Author Organization [facility] Address [address] [facility] [address] Care Team Providers Care Engineer Internship Name Role Phone Shlomo Hu MD Primary Care Provider [phone] Jess Marsh LPN Unavailable Esthela Tesfaye RAILROAD FIRER/FIREMAN Unavailable [phone] Encounter Details Date Type Department Care Team (Late st Contact Info) Description 12/07/2024 Abstract [facility] [address] [facility] 110 [place] [address] Shlomo Hu MD [address] [facility] 110 [place] [address] Social History Tobacco Use Types Packs/Day Years [...] How often do you attend chur or mosque services? Never 04/18/2024 Do you belong to any clubs o r organizations such as gnosticist groups, unions, fraternal or athletic groups, or [...] Recorded Patient Health Questionnaire-2 Score 0 12/01/2024 [facility] of Occupat ional Health - Occupational [...] place to sleep or slept in a snf (including now)? No 03/01/2023 Housing Stability Vital [...] any time in the past 12 m [facility], were you homeless or living in a snf (including now)? 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 Not on file Not on file documented as of this encounter Plan of Treatment Upcoming Encounters Date Type Department Care Team (Late st Contact Info) Description 04/12/2025 9:50 AM EDT Office Visit [facility] ENDOCRIN[facility] [address] [place] [address] Tanya Lozano MD [address] [place] [address] 04/20/2025 3:00 PM EDT Office Visit [facility] PODIAT[facility] [address] [place] [address] [place] [address] Sonny Rodriguez DPM [address] [facility] [address] [place] [address] 05/04/2025 2:50 PM EDT Office Visit [facility] [address] [place] [address] [place] [address] Sonny Rodriguez DPM 3006 [facility] 5 [place] [address] documented as of this encounter Visit Diagnoses Not on filedocumented in this encounter Additional Health Concerns Assessment Noted Time PHQ-9 Depression Total Score: 18 024 9:42 AM EDT documented as of this encounter Care Teams Engineer Internship Relationship Specialty Start Date End Date Shlomo Hu MD [address] [place] [place] [address] PCP - General Internal Medicine 02/15/23 Jess Marsh LPN [address] [place] [address] [place] [address] 12/06/24 Esthela Tesfaye, KIRA [address] [place] [address] Palliative Medicine Physician Family Medicine 02/03/25 documented as of this encounter
--- OUTSIDE RECORDS SUMMARY | 2025-03-28 09:08 | XMS_ITS | Encounter Summary ---
Author Organization [facility] Address [address] [place] [address] Care Team Providers Care Supervisor Reclamation Name Role Phone Jacob Sharp Unavailable Rasheeda Newton RD Unavailable [phone] Unavailable [phone] Fritz HENDERSON MD, Shlomo Momin Primary Care Provider [phone] Yuan Miller MD, PhD Unavailable [phone] Source Comments In the event this information is protected by the Federal Confidentiality of Alcohol and Drug AbusePatient Records regulations: The Federal rules restrict any use of the information to criminally investigate or prosecute any alcohol or drug abuse patient.[facility] Encounter Details Date Type Department Care Team (Late st Contact Info) Description 11/28/2024 Get Medical Advice PAIN [place] [address] [place] [address] Johann Echeverria MD [address] [place] [address] [place] [address] Meds Social History Tobacco Use Types Packs/Day Years Used Date Smoking Tobacco: Never Smokeless Tobacco: Never Alcohol Use Standard Drinks/Week Comments Not Currently 0 (1 standard drink = 0.6 oz pur e alcohol) [facility] Utilities Answer Date Recorded In the [...] place to sleep or slept in a halfway (including now)? No 02/16/2024 Housing Stability Vital [...] in the past 12 m [facility], were you homeless or living in a halfway (including now)? No 10/18/2024 Area Deprivation Index Answer Date Reagan rded National Score (1-100), lower number is lower ri sk 63 03/05/2023 State Score (1-10), lower number is lower risk 4 03/05/2023 Data from: https://www.neighborhoodatlas.[facility]/. Last address used for calculation [address] 270 03/05/2023 Comments No Sex and [...] Telephone Encounter - Daniela Ford LPN - 11/30/2024 8:11 AM EDT See my chart from patient 11/29/24 618pm * Telephone Encounter - Daniela Ford LPN - 11/29/2024 11:24 AM EDT Last visit:11/23/24 * Telephone Encounter - Melina Berger - 11/28/2024 11:04 AM EDT Patient is calling in regarding [employer] message she sent today and then back on 11/24/24. Please call patient to advise. documented in this encounter Plan of Treatment Upcoming Encounters Date Type Department Care Team (Latest Contact Info) Description 03/31/2025 11:00 AM EDT Office Visit General Surgery [address] [place] [phone] Michael Mora PA-C [address] [place] [address] follow up- add on ok'd by Michael 04/07/2025 1:00 PM EDT [facility] [address] [place] [address] Agatha Kim PSYD [address] [place], [place] [phone] 04/19/2025 11:00 AM EDT [facility] [address] [place] [address] Joann Loera APRN.PLASTIC OUTFITTER 9500 [place] [address] Cognitive movement issues 04/21/2025 8:30 AM EDT [facility] [address] [place] [address] f/u TF forula tolerance and hydration 05/29/2025 9:00 AM EDT [facility] Gastroenterology [address] [address] Johanna Martinez MD [facility] [address] [address] 3 month follow up 06/28/2025 10:00 AM T [facility] Pain [address] [place] [phone] [place] [address] [place] [phone] Follow up for pain documented as of this encounter Visit Diagnoses Not on filedocumented in this encounter Care Teams Supervisor Reclamation Relationship Specialty Start Date End Date Shlomo Hu II, MD [address] [address] PCP - General Internal Medicine 10/06/23 Jacob Sharp [address] [place] [phone] Referring 04/30/[address] [address] Registered Dietitian Nutrition 06/24/[address] [place] [address] Registered Dietitian Nutrition 08/27/23 Yuan Miller MD, PhD [address] [place] [phone] Surgeon General Surgery 02/03/24 documented as of this encounter
--- OUTSIDE RECORDS SUMMARY | 2025-03-28 09:08 | XMS_ITS | Encounter Summary ---
Author Organization [facility] Address [address] [place] [address] Care Team Providers Care Relationship Banker Name Role Phone Jacob Sharp Unavailable Rasheeda Newton RD Unavailable [phone] Unavailable [phone] Fritz HENDERSON MD, Shlomo Momin Primary Care Provider [phone] Yuan Miller MD, PhD Unavailable [phone] Source Comments In the event this information is protected by the Federal Confidentiality of Alcohol and Drug AbusePatient Records regulations: The Federal rules restrict any use of the information to criminally investigate or prosecute any alcohol or drug abuse patient.[facility] Encounter Details Date Type Department Care Team (Late st Contact Info) Description 12/14/2024 Get Medical Advice Rheumatology [address] [phone] [place] [address] [place] [address] Blood work Social History Tobacco Use Types Packs/Day Years Used Date Smoking Tobacco: Never Smokeless Tobacco: Never Alcohol Use Standard Drinks/Week Comments Not Currently 0 (1 standard drink = 0.6 oz pur e alcohol) [facility] Utilities Answer Date Recorded In the [...] to sleep or slept in a senior living (including now)? No 02/16/2024 Housing Stability Vital [...] time in the past 12 m [facility], were you homeless or living in a senior living (including now)? No 10/18/2024 Area Deprivation Index Answer Date Reagan rded National Score (1-100), lower number is lower ri sk 63 03/05/2023 State Score (1-10), lower number is lower risk 4 03/05/2023 Data from: https://www.neighborhoodatlas.medicine.[facility]/. Last address used for calculation [address] 270 03/05/2023 Comments No Sex and [...] AM EDT Office Visit General Surgery [address] [phone] Michael Mora PA-C [address]00 [place] [address] follow up- add on ok'd by Michael 04/07/2025 1:00 PM EDT [facility] [address] [place] [address] Agatha Kim PSYD 9500 [place] [address] 04/19/2025 11:00 AM EDT [facility] 9[address] [place] [address] Joann Loera APRN.SOURCING COORDINATOR [address] [place] [phone] Cognitive movement issues 04/21/2025 8:30 AM EDT [facility] [address] [place] [phone] Tiffany Banks, RD 9500 [place] [address] f/u TF forula tolerance and hydration 05/29/2025 9:00 AM EDT [facility] Gastroenterology [address] [place] [phone] Johanna Martinez MD [facility] [address] [place], [place] [phone] 3 month follow up 06/28/2025 10:00 AM EDT [facility] Pain [address] [place] [address] [place] [address] [place] [address] Follow up for pain documented as of this encounter Visit Diagnoses Not on filedocumented in this encounter Care Teams Relationship Banker Relationship Specialty Start Date End Date Shlomo Hu II, MD [address] [facility] 110 [place] [address] PCP - General Internal Medicine 10/06/23 Jacob Sharp [address] [place] [phone] Referring 04/30/[address] [place] [id number] Registered Dietitian Nutrition 06/24/[address] 9509 [place] [address] Registered Dietitian Nutrition 08/27/23 Yuan Miller MD, PhD 9509 [place] [address] Surgeon General Surgery 02/03/24 documented as of this encounter
--- OUTSIDE RECORDS SUMMARY | 2025-03-28 09:08 | XMS_ITS | Encounter Summary ---
Author Organization [facility] Address [address] [place] [address] Care Team Providers Care Fur Blowing Machine Attendant Name Role Phone Shlomo Hu MD Primary Care Provider [phone] Jess Marsh LPN Unavailable Esthela Tesfaye LINKER UP Unavailable [phone] Reason for Visit * Reason Onset Date Comments Casting For Braces Or Orthotics 01/05/2025 Encounter Details Date Type Department Care Team ([facility] Contact Info) Description 01/05/2025 Telephone [facility] [address] [facility] 120 [place] [address] Sonny Rodriguez, EFREN 3006 [facility] 5 [place] [address] Casting For Braces Or Orthotics Social History Tobacco Use Types Packs/Day Years [...] How often do you attend chur or rastafarian services? 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 Covered at 80$. Ded $500 and met in full. $2460.60 of the $3000 oop met. REF#: [id number]. * Telephone Encounter - Sonny Rodriguez DPM - 01/05/2025 10:49 AM EDT Please precertify for custom orthotics for the diagnosis of please call to discuss if covered or not covered for HAV deformities bilaterally documented in this encounter Plan of Treatment Upcoming Encounters Date Type Department Care Team (Late st Contact Info) Description 04/12/2025 9:50 AM EDT Office Visit [facility] END[facility] [address] [place] [phone] Tanya Lozano MD [address] [place] [address] 04/20/2025 3:00 PM EDT Office Visit [facility] [address] [place] [address] [place] [address] Sonny Rodriguez DPM 3006 [facility] 5 [place] [address] 05/04/2025 2:50 PM EDT Office Visit [facility] [address] [place] [address] [place] [id number] Sonny Rodriguez DPM 3006 [facility] 5 [place] [address] documented as of this encounter Visit Diagnoses Not on filedocumented in this encounter Additional Health Concerns Assessment Noted Time PHQ-9 Depression Total Score: 18 024 9:42 AM EDT documented as of this encounter Care Teams Fur Blowing Machine Attendant Relationship Specialty Start Date End Date Shlomo Hu MD [address] [facility] 110 [place] [address] PCP - General Internal Medicine 02/15/23 Jess Marsh LPN [address] [facility] 110 [place] [address] 12/06/24 Esthela Tesfaye LSW [address] [place] [address] Special Officer Automat Family Medicine 02/03/25 documented as of this encounter
--- OUTSIDE RECORDS SUMMARY | 2025-03-28 09:08 | XMS_ITS | Encounter Summary ---
Author Organization [facility] Address [address] [place] [address] Care Team Providers Care Perishable Fruit Inspector Name Role Phone Jacob Sharp Unavailable Rasheeda Newton RD Unavailable [phone] Unavailable [phone] Fritz HENDERSON MD, Shlomo Momin Primary Care Provider [phone] Yuan Miller MD, PhD Unavailable [phone] Source Comments In the event this information is protected by the Federal Confidentiality of Alcohol and Drug AbusePatient Records regulations: The Federal rules restrict any use of the information to criminally investigate or prosecute any alcohol or drug abuse patient.[facility] Encounter Details Date Type Department Care Team (Late st Contact Info) Description 11/28/2024 Patient Msg Gastroenterology [address] [phone] Provider, [facility] follow up information Social History Tobacco Use Types Packs/Day Years Used Date Smoking Tobacco: Never Smokeless Tobacco: Never Alcohol Use Standard Drinks/Week Comments Not Currently 0 (1 standard drink = 0.6 oz pur e alcohol) [facility] Utilities Answer Date Recorded In the past 12 months has th e [employer], gas, oil, or water company threatened to [...] place to sleep or slept in a usp (including now)? No 02/16/2024 Housing Stability Vital [...] any time in the past 12 m [facility], were you homeless or living in a usp (including now)? No 10/18/2024 Area Deprivation Index Answer Date Reagan rded National Score (1-100), lower number is lower ri sk 63 03/05/2023 State Score (1-10), lower number is lower risk 4 03/05/2023 Data from: https://www.neighborhoodatlas.medicine.[facility]/. Last address used for calculation [address] 270 03/05/2023 Comments No [...] AM EDT Office Visit General Surgery 9300 [place] [address] Michael Mora PA-C 9500 [place] [address] follow up- add on ok'd by Michael 04/07/2025 1:00 PM EDT [facility] 9300 [place] [address] Agatha Kim PSYD [address] [place] [phone] 04/19/2025 11:00 AM EDT [facility] 9300 [place] [address] Joann Loera APRN.STORE PRODUCT DEMONSTRATOR [address]00 [place] [address] Cognitive movement issues 04/21/2025 8:30 AM T [facility] Nutrition Therapy 2048 [place] [address] Tiffany Banks, DIONNE 9500 [place] [address] f/u TF forula tolerance and hydration 05/29/2025 9:00 AM T [facility] Gastroenterology 2048 [place] [address] [facility] [address] [place] [address] 3 month follow up 06/28/2025 10:00 AM [facility] Neurology Pain [address] [place] [phone] [place] [address] [place] [phone] Follow up for pain documented as of this encounter Visit Diagnoses Not on filedocumented in this encounter Care Teams Perishable Fruit Inspector Relationship Specialty Start Date End Date Shlomo Hu II, MD [address] [place] [address] [place] [address] PCP - General Internal Medicine 10/06/23 Jacob Sharp [address] [place] [address] Referring 04/30/[address] [place] [phone] Registered Dietitian Nutrition 06/24/[address] [place] [phone] Registered Dietitian Nutrition 08/27/23 Yuan Miller MD, PhD 9500 [place] [address] Surgeon General Surgery 02/03/24 documented as of this encounter
--- OUTSIDE RECORDS SUMMARY | 2025-03-28 09:08 | XMS_ITS | Encounter Summary ---
Author Organization [facility] Address [address] [place] [address] Care Team Providers Care Firewood Cutter Name Role Phone Sean Ruiz DO Primary Care Provider [phone] Jacob Sharp Unavailable Rasheeda Newton RD Unavailable [phone] Unavailable [phone] Fritz HENDERSON MD, Shlomo Momin Primary Care Provider [phone] Yuan Miller MD, PhD Unavailable [phone] Source Comments In the event this information is protected by the Federal Confidentiality of Alcohol and Drug AbusePatient Records regulations: The Federal rules restrict any use of the information to criminally investigate or prosecute any alcohol or drug abuse patient.[facility] Encounter Details Date Type Department Care Team (Late st Contact Info) Description 06/25/2022 Patient Msg Pre Anesthesia [address] [place] [address] Provider, [facility] Pre Anesthesia Consultation Clinic Appointment [...] N ot on file 08/20/2020 Data from: https://www.neighborhoodatlas.medicine.[facility].edu/. Last address used for calculation Not on [...] 4:13 PM EDT Anita Gomes RN documented in this encounter Plan of Treatment Upcoming Encounters Date Type Department Care Team (Latest Contact Info) Description 03/31/2025 11:00 AM EDT Office Visit General Surgery 9300 [place] [address] Michael Mora PA-C [address] [place] [phone] follow up- add on ok'd by Michael 04/07/2025 1:00 PM EDT [facility] 9300 [place] [address] Agatha Kim PSYD [address] [place] [phone] 04/19/2025 11:00 AM EDT [facility] [address] [place] [phone] Joann Loera APRN.HAND CUTTER [address] [place] [phone] Cognitive movement issues 04/21/2025 8:30 AM T [facility] Nutrition Therapy 2048 [place] [address] Tiffany Banks, RD [address] [place] [phone] f/u TF forula tolerance and hydration 05/29/2025 9:00 AM EDT [facility] Gastroenterology [address] [place] [phone] Johanna Martinez MD [facility] 2048 [place] [address] 3 month follow up 06/28/2025 10:00 AM EDT [facility] Pain [address] [facility] [place] [address] [place] [address] [place] [address] Follow up for pain documented as of [...] documented as of this encounter Care Teams Firewood Cutter Relationship Specialty [place] [address] [place] [address] PCP - General Family Medicine 07/09/12 10/05/23 Shlomo Hu II, MD [address] [place] [address] [place] [address] PCP - General Internal Medicine 10/06/23 Jacob Sharp [address] [place] [address] Referring 04/30/[address] [place] [address] Registered Dietitian Nutrition 06/24/[address]504 [place] [address] Registered Dietitian Nutrition 08/27/23 Yuan Miller MD, PhD 0218 [place] [address] Surgeon General Surgery 02/03/24 documented as of this encounter
--- OUTSIDE RECORDS SUMMARY | 2025-03-28 09:08 | XMS_ITS | Encounter Summary ---
Author Organization [facility] Address [address] [place] [address] Care Team Providers Care Specialty Therapist Name Role Phone Jacob Sharp Unavailable Rasheeda Newton RD Unavailable [phone] Unavailable [phone] Fritz HENDERSON MD, Shlomo Momin Primary Care Provider [phone] Yuan Miller MD, PhD Unavailable [phone] Source Comments In the event this information is protected by the Federal Confidentiality of Alcohol and Drug AbusePatient Records regulations: The Federal rules restrict any use of the information to criminally investigate or prosecute any alcohol or drug abuse patient.[facility] Encounter Details Date Type Department Care Team (Late st Contact Info) Description 11/24/2024 Get Medical Advice PAIN [place] [address] [address] [place] [address] Johann Echeverria MD [address] [place] [address] [place] [address] Medicine Social History Tobacco Use Types Packs/Day Years Used Date Smoking Tobacco: Never Smokeless Tobacco: Never Alcohol Use Standard Drinks/Week Comments Not Currently 0 (1 standard drink = 0.6 oz pur e alcohol) [facility] Utilities Answer Date Recorded In the past [...] place to sleep or slept in a long-term (including now)? No 02/16/2024 Housing Stability Vital [...] time in the past 12 m [facility], were you homeless or living in a long-term (including now)? No 10/18/2024 Area Deprivation Index Answer Date Reagan rded National Score (1-100), lower number is lower ri sk 63 03/05/2023 State Score (1-10), lower number is lower risk 4 03/05/2023 Data from: https://www.neighborhoodatlas.medicine.[facility]/. Last address used for calculation [address] 270 03/05/2023 Comments No [...] AM EDT Office Visit General Surgery [address] [place] [phone] Michael Mora PA-C [address] [place] 0326395 follow up- add on ok'd by Michael 04/07/2025 1:00 PM EDT [facility] [address] [place] [phone] Agatha Kim PSYD [address] [place] 0326395 04/19/2025 11:00 AM EDT [facility] [address] [place] 0326306 Joann Loera APRN.REFRACTORY WORKER [address] [place] [phone] Cognitive movement issues 04/21/2025 8:30 AM EDT [facility] Nutrition Therapy [address] [place] [phone] Tiffany Banks, RD [address] [place] 0326395 f/u TF forula tolerance and hydration 05/29/2025 9:00 AM EDT [facility] Gastroenterology [address] [place] [phone] Johanna Martinez MD [facility] [address] [place], [place] [address] 3 month follow up 06/28/2025 10:00 AM EDT [facility] Neurology Pain [address] [place] 0326306 [place] [address] [place] [phone] Follow up for pain documented as of this encounter Visit Diagnoses Not on filedocumented in this encounter Care Teams Specialty Therapist Relationship Specialty Start Date End Date Shlomo Hu II, MD [address] [place] [place] [address] PCP - General Internal Medicine 10/06/23 Jacob Sharp [address] [place] [phone] Referring 04/30/[address] [place] [phone] Registered Dietitian Nutrition 06/24/[address] 9507 [place] [address] Registered Dietitian Nutrition 08/27/23 Yuan Miller MD, PhD 9505 [place] [address] Surgeon General Surgery 02/03/24 documented as of this encounter
--- OUTSIDE RECORDS SUMMARY | 2025-03-28 09:08 | XMS_ITS | Encounter Summary ---
Author Organization [facility] Address [address] [facility] [place] [address] Care Team Providers Care Journeyman Wireman Name Role Phone Shlomo Hu MD Primary Care Provider [phone] Claribel Scott RN Unavailable Jess Marsh ADVANCED SOLUTIONS ARCHITECT Unavailable Esthela Tesfaye PARACHUTE PANEL JOINER Unavailable [phone] Encounter Details Date Type Department Care Team (Late st Contact Info) Description 11/22/2024 Abstract [facility] [address] [facility] 110 [place] [address] Shlomo Hu MD 112 [facility] 110 [place] [address] Social History Tobacco Use Types [...] often do you attend chur ch or hinduism services? Never 04/18/2024 Do you belong to any clubs o r organizations such as uatsdin groups, unions, fraternal or athletic groups, or [...] Recorded Patient Health Questionnaire-2 Score 0 11/10/2024 [facility] - Occupational [...] any time in the past 12 m 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 Not on file Not on file documented as of this encounter Plan of Treatment Upcoming Encounters Date Type Department Care Team (Late st Contact Info) Description 04/12/2025 9:50 AM EDT Office Visit [facility] [address] [place] [address] Tanya Lozano MD [address] [place] [address] 04/20/2025 3:00 PM EDT Office Visit [facility] [address] [facility] 120 [place] [address] Sonny Rodriguez DPLudmila 3006 [facility] 5 [place] [address] 05/04/2025 2:50 PM EDT Office Visit [facility] [address] [facility] 120 [place] [address] Sonny Rodriguez DPLudmila [address] [address] documented as of this encounter Visit Diagnoses Not on filedocumented in this encounter Additional Health Concerns Assessment Noted Time PHQ-9 Depression Total Score: 18 024 9:42 AM EDT documented as of this encounter Care Teams Journeyman Wireman Relationship Specialty Start Date End Date Shlomo Hu MD [address] [facility] 110 [place] [address] PCP - General Internal Medicine 02/15/23 Claribel Scott, RN [address] [place] [address] Licensed Practical Nurse Family Medicine 10/21/24 12/06/24 Jess Marsh LPN [address] [facility] 110 [place] [address] 12/06/24 Esthela Tesfaye LSW [address] [place] [address] Director Of Planning Family Medicine 02/03/25 documented as of this encounter
--- OUTSIDE RECORDS SUMMARY | 2025-03-28 09:09 | XMS_ITS | Encounter Summary ---
Author Organization [facility] Address [address] [place] [address] Care Team Providers Care Cabin Worker Name Role Phone Jacob Sharp Unavailable Rasheeda Newton RD Unavailable [phone] Unavailable [phone] Fritz HENDERSON MD, Shlomo Momin Primary Care Provider [phone] Yuan Miller MD, PhD Unavailable [phone] Source Comments In the event this information is protected by the Federal Confidentiality of Alcohol and Drug AbusePatient Records regulations: The Federal rules restrict any use of the information to criminally investigate or prosecute any alcohol or drug abuse patient.[facility] Encounter Details Date Type Department Care Team (Late st Contact Info) Description 12/15/2024 Patient Msg Gastroenterology [address] [id number] Provider, [facility] medication patient assistance program Social History Tobacco Use Types Packs/Day Years Used Date Smoking Tobacco: Never Smokeless Tobacco: Never Alcohol Use Standard Drinks/Week Comments Not Currently 0 (1 standard drink = 0.6 oz pur e alcohol) [facility] Utilities Answer Date Recorded In the past [...] is lower risk 4 03/05/2023 Data from: https://www.neighborhoodatlas.medicine.[facility]/. Last address used for calculation [address] 03/05/2023 Comments No [...] AM EDT Office Visit General Surgery [address] [place] [address] Michael Mora PA-C [address]00 [place] [address] follow up- add on ok'd by Michael 04/07/2025 1:00 PM EDT [facility] Neurological Congregation 9300 [place] [address] Agatha Kim PSYD [address] [place] [id number] 04/19/2025 11:00 AM EDT [facility] Neurological Congregation [address] [place] [phone] Joann Loera APRN.LEGAL STENOGRAPHER [address] [place] [id number] Cognitive movement issues 04/21/2025 8:30 AM T [facility] Nutrition Therapy 2048 [place] [address] [place] [address] f/u TF forula tolerance and hydration 05/29/2025 9:00 AM T [facility] Gastroenterology 2048 [place] [address] Johanna Martinez MD [facility] [address] [place] [address] 3 month follow up 06/28/2025 10:00 AM T [facility] Neurology Pain [address] [place] [phone] [place] [address] [place] [id number] Follow up for pain documented as of this encounter Visit Diagnoses Not on filedocumented in this encounter Care Teams Cabin Worker Relationship Specialty Start Date End Date Shlomo Hu II, MD [address] [place] [address] [place] [address] PCP - General Internal Medicine 10/06/23 Jacob Sharp [address] [place] [address] Referring 04/30/[address] [place] [id number] Registered Dietitian Nutrition 06/24/[address] [place] [id number] Registered Dietitian Nutrition 08/27/23 Yuan Miller MD, PhD 0662 [place] [address] Surgeon General Surgery 02/03/24 documented as of this encounter
--- OUTSIDE RECORDS SUMMARY | 2025-03-28 09:09 | XMS_ITS | Encounter Summary ---
Author Organization [facility] Address [address] [place] [address] Care Team Providers Care Banana Expert Name Role Phone Shlomo Hu MD Primary Care Provider [phone] Jess Marsh LPN Unavailable Esthela Tesfaye VENDOR ANALYST Unavailable [phone] Encounter Details Date Type Department Care Team ([facility] st Contact Info) Description 02/02/2025 Telephone [facility] 112 [facility] 120 [place] [address] Sonny Rodriguez, DPM 300[address] [facility] 5 [place] [address] Social History Tobacco Use Types Packs/Day Years [...] How often do you attend chur or yarsani services? Never 04/18/2024 Do you belong to any clubs o r organizations such as religious groups, unions, fraternal or athletic groups, or [...] Recorded Patient Health Questionnaire-2 Score 0 01/05/2025 [facility]at ional Health [...] place to sleep or slept in a longterm (including now)? No 03/01/2023 Housing Stability Vital [...] any time in the past [address] [facility], were you homeless or living in a longterm (including now)? 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 NO WEIGHT BEARING STATUS-- partial weight-bearing hydrocodone documented in this encounter Plan of Treatment Upcoming Encounters Date Type Department Care Team (Late st Contact Info) Description 04/12/2025 9:50 AM EDT Office Visit [facility] [address] [place] [address] Tanya Lozano MD [address] [place] [address] 04/20/2025 3:00 PM EDT Office Visit [facility] [address] [place] [address] [place] [address] Sonny Rodriguez DPM 3006 [facility] 5 [place] [address] 05/04/2025 2:50 PM EDT Office Visit [facility] [address] [place] [address] [place] [address] Sonny Rodriguez DPM [address] [address] documented as of this encounter Visit Diagnoses Diagnosis Metatarsal deformity, left- Primary Acquired deformity of left toe documented in this encounter Additional Health Concerns Assessment Noted Time PHQ-9 Depression Total Score: 18 024 9:42 AM EDT documented as of this encounter Care Teams Banana Expert Relationship Specialty Start Date End Date Shlomo Hu MD [address] [facility] 110 [place] [address] PCP - General Internal Medicine 02/15/23 Jess Marsh LPN [address] [facility] 110 [place] [address] 12/06/24 Esthela Tesfaye, VENDOR ANALYST [address] [place], [place] [phone] Technical Training Instructor Family Medicine 02/03/25 documented as of this encounter
--- OUTSIDE RECORDS SUMMARY | 2025-03-28 09:09 | XMS_ITS | Encounter Summary ---
Author Organization [facility] Address [address] [place] [address] Care Team Providers Care Matrix Bath Attendant Name Role Phone Jacob Sharp Unavailable Rasheeda Newton RD Unavailable [phone] Unavailable [phone] Fritz HENDERSON MD, Shlomo Momin Primary Care Provider [phone] Yuan Miller MD, PhD Unavailable [phone] Source Comments In the event this information is protected by the Federal Confidentiality of Alcohol and Drug AbusePatient Records regulations: The Federal rules restrict any use of the information to criminally investigate or prosecute any alcohol or drug abuse patient.[facility] Encounter Details Date Type Department Care Team (Late st Contact Info) Description 01/05/2024 Patient Msg [facility] [address] [place] [address] Provider, [facility] Important Instructions reminder regarding your upcoming EGD Eid/Eid Insert Please follow Directions carefully in order to avoid your procedure being cancelled or rescheduled. Thank you. Social History Tobacco Use Types Packs/Day Years [...] 08/10/2023 PHQ-2 Answer Date Recorded PHQ-2 score 5 12/07/2023 Hunger Vital Sign Answer Date Recorded Within the past 12 months, y ou worried that your food would run out before you got the money to buy more. Never true 08/10/20 23 Within the past 12 months, t he food you bought just didn't last and you didn't have money to get more. Never true 08/10/2023 PRAPARE - Transportation Answer Date Re corded In the past 12 months, has l ack of transportation kept you from medical appointments or from getting medications? No 07/16 In the past 12 months, has l ack of transportation kept you from meetings, work, or from getting things needed for daily living? No 08/10/2023 Housing Stability Vital Sign Answer Luis Miguel e Recorded In the last 12 months, was t here a time when you were not able to pay the mortgage or rent on time? No 08/10/2023 In the last 12 months, how many places have you lived? 1 08/10/2023 In the last 12 months, was t here a time when you did not have a steady place to sleep or slept in a senior care (including now)? No 08/10/2023 Area Deprivation Index Answer Date Reagan rded [...] hearing? Answer Date of Assessment Author No 08/17/2023 4:25 PM Millicent Madrigal RN * Are you blind or do you have serious difficulty seeing, even when wearing glasses? Answer Date of Assessment Author No 08/17/2023 4:25 PM Millicent Madrigal RN * Do you have serious difficulty walking or climbing stairs? Answer Date of Assessment Author No 06/12/2023 1:45 PM EDT Vanna Li RN * Do you have difficulty dressing or bathing? Answer Date of Assessment Author No 08/17/2023 4:25 PM Millicent Madrigal RN * Because of a physical, mental, or emotional condition, do you have difficulty doing errands alone such as visiting a doctor's office or shopping? Answer Date of Assessment Author No 08/17/2023 4:25 PM Millicent Madrigal RN documented as of this encounter Mental Status * Because of a physical, mental, or emotional condition, do you have serious difficulty concentrating, remembering, or making decisions? Answer Entry Date Author No 08/17/2023 4:25 PM Millicent Madrigal RN documented in this encounter Plan of Treatment Upcoming Encounters Date Type Department Care Team (Latest Contact Info) Description 03/31/2025 11:00 AM EDT Office Visit General Surgery 9300 [place] [address] Michael Mora PA-C [address] [place] [address] follow up- add on ok'd by Michael 04/07/2025 1:00 PM EDT [facility] [address] [place] [phone] Agatha Kim PSYD [address] [place] [phone] 04/19/2025 11:00 AM EDT [facility] Neurological Anabaptism [address] [place] [address] Joann Loera APRN.COMMUNITY SERVICE OFFICER COORDINATOR [address]00 [place] [address] Cognitive movement issues 04/21/2025 8:30 AM EDT [facility] Nutrition Therapy [address] [place] [phone] [address] [place] [phone] f/u TF forula tolerance and hydration 05/29/2025 9:00 AM EDT [facility] Gastroenterology [address] [place] [phone] Johanna Martinez MD [facility] [address] [place], [place] [phone] 3 month follow up 06/28/2025 10:00 AM EDT [facility] Neurology Pain [address] [place] [phone] [place] [address] [place] [address] Follow up for pain documented as of [...] documented as of this encounter Care Teams Matrix Bath Attendant Relationship Specialty Start Date End Date Shlomo Hu II, MD [address] [place] [address] [place] [address] PCP - General Internal Medicine 10/06/23 Jacob Sharp [address] [place] [address] Referring 04/30/[address] [place] [phone] Registered Dietitian Nutrition 06/24/[address] [place] [address] Registered Dietitian Nutrition 08/27/23 Yuan Miller MD, PhD 7[address] [place] [address] Surgeon General Surgery 02/03/24 documented as of this encounter
--- OUTSIDE RECORDS SUMMARY | 2025-03-28 09:09 | XMS_ITS | Encounter Summary ---
Author Organization [facility] Address [address] [facility] [place] [address] Care Team Providers Care Defensive Secondary Coach Name Role Phone Shlomo Hu MD Primary Care Provider [phone] Jess Marsh LPN Unavailable Esthela Tesfaye NET MAKER Unavailable [phone] Encounter Details Date Type Department Care Team (Late st Contact Info) Description 02/15/2025 Abstract [facility] [address] [facility] 110 [place] [address] Shlomo Hu MD 112 [facility] 110 [place] [address] Social History Tobacco Use Types Packs/Day Years [...] How often do you attend chur or pentecostal services? Never 04/18/2024 Do you belong to any clubs o r organizations such as anabaptism groups, unions, fraternal or athletic groups, or [...] Recorded Patient Health Questionnaire-2 Score 0 01/05/2025 [facility] Occupat ional Health - [...] place to sleep or slept in a assisted (including now)? No 03/01/2023 Housing Stability Vital [...] any time in the past 12 m [facility], were you homeless or living in a assisted (including now)? 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 Not on file Not on file documented as of this encounter Plan of Treatment Upcoming Encounters Date Type Department Care Team (Late st Contact Info) Description 04/12/2025 9:50 AM EDT Office Visit [facility] [address] [place] [address] Tanya Lozano MD [address] [place] [address] 04/20/2025 3:00 PM EDT Office Visit [facility] P[facility] [address] [place] [address] [place] [address] Sonny Rodriguez DPM 3006 [facility] [place] [address] [place] [address] 05/04/2025 2:50 PM EDT Office Visit [facility] [address] [place] [address] [place] [address] Sonny Rodriguez DPM 3006 [facility] 5 [place] [address] documented as of this encounter Visit Diagnoses Not on filedocumented in this encounter Additional Health Concerns Assessment Noted Time PHQ-9 Depression Total Score: 18 024 9:42 AM EDT documented as of this encounter Care Teams Defensive Secondary Coach Relationship Specialty Start Date End Date Shlomo Hu MD [address] [place] [address] [place] [address] PCP - General Internal Medicine 02/15/23 Jess Marsh LPN [address] [place] [address] [place] [address] 12/06/24 Esthela Tesfaye, KIRA [address] [place] [address] Professor Of Practice Family Medicine 02/03/25 documented as of this encounter
--- OUTSIDE RECORDS SUMMARY | 2025-03-28 09:09 | XMS_ITS | Encounter Summary ---
Author Organization [facility] Address [address] [facility] [place] [address] Care Team Providers Care Nurse Advocate Name Role Phone Shlomo Hu MD Primary Care Provider [phone] Claribel Scott RN Unavailable [phone] Jess Marsh CSR RETAIL Unavailable Esthela Tesfaye ASSOCIATE ORACLE RETAIL Unavailable [phone] Encounter Details Date Type Department Care Team (Late st Contact Info) Description 11/09/2024 Abstract [facility] [address] [facility] 110 [place] [address] Shlomo Hu MD 112 [facility] 110 [place] [address] Social History Tobacco Use Types [...] often do you attend chur ch or cheondoism services? Never 04/18/2024 Do you belong to [...] Recorded Patient Health Questionnaire-2 Score 0 11/10/2024 [facility] Occupat ional Health - [...] slept in a long-term (including now)? No 03/01/2023 Housing Stability Vital [...] time in the past [address] [facility], were you homeless or living in a long-term (including now)? 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 Question Answer Date of Assessment Author Little interest or pleasure in doing things Not at all 11/10/2024 2:33 PM Xin Lopez LP N Feeling down, depressed, or hopeless Not at all 11/10/2024 2:33 PM Xin Lopez LP N Patient Health Questionnaire -2 Score 0 11/10/2024 2:33 PM Xin Lopez LP N documented as of this encounter Plan of Treatment Upcoming Encounters Date Type Department Care Team (Late st Contact Info) Description 04/12/2025 9:50 AM EDT Office Visit [facility] [address] [place] [address] Tanya Lozano MD [address] [place] [address] 04/20/2025 3:00 PM EDT Office Visit [facility] POD[facility] [address] [place] [address] [place] [address] Sonny Rodriguez DPM 3001 [facility] 5 [place] [address] 05/04/2025 2:50 PM EDT Office Visit [facility] P[facility] [address] [place] [address] [place] [address] Sonny Rodriguez DPM 3006 [facility] 5 [place] [address] documented as of this encounter Visit Diagnoses Not on filedocumented in this encounter Additional Health Concerns Assessment Noted Time PHQ-9 Depression Total Score: 18 024 9:42 AM EDT documented as of this encounter Care Teams Nurse Advocate Relationship Specialty Start Date End Date Shlomo Hu MD [address] [place] [address] [place] [address] PCP - General Internal Medicine 02/15/23 Claribel Scott, RN [address] [place] [address] Licensed Practical Nurse Family Medicine 10/21/24 12/06/24 Jess Marsh LPN 112 [facility] 110 [place] [address] 12/06/24 Esthela Tesfaye LSW [address] [place] [address] House Furnishings Supervisor Family Medicine 02/03/25 documented as of this encounter
--- OUTSIDE RECORDS SUMMARY | 2025-03-28 09:09 | XMS_ITS | Encounter Summary ---
Author Organization [facility] Address [address] [place] [address] Care Team Providers Care Utility Agent Name Role Phone Jacob Sharp Unavailable Rasheeda Newton RD Unavailable [phone] Unavailable [phone] Fritz HENDERSON MD, Shlomo Momin Primary Care Provider [phone] Yuan Miller MD, PhD Unavailable [phone] Source Comments In the event this information is protected by the Federal Confidentiality of Alcohol and Drug AbusePatient Records regulations: The Federal rules restrict any use of the information to criminally investigate or prosecute any alcohol or drug abuse patient.[facility] Encounter Details Date Type Department Care Team (Late st Contact Info) Description 12/16/2024 Get Medical Advice Rheumatology [address] [id number] [place] [address] [place] [address] FollowUp Social History Tobacco Use Types Packs/Day Years Used Date Smoking Tobacco: Never Smokeless Tobacco: Never Alcohol Use Standard Drinks/Week Comments Not Currently 0 (1 standard drink = 0.6 oz pur e alcohol) [facility] Utilities Answer Date Recorded In the [...] in the past [address] [facility], were you homeless or living in a long-term (including now)? No 10/18/2024 Area Deprivation Index Answer Date Reagan rded National Score (1-100), lower number is lower ri sk 63 03/05/2023 State Score (1-10), lower number is lower risk 4 03/05/2023 Data from: https://www.neighborhoodatlas.medicine.[facility]/. Last address used for calculation [address] 270 03/05/2023 Comments No Sex and [...] Entry Date Author No 08/02/2024 3:06 PM EST Evanoski, Donna, RN documented in this encounter Miscellaneous Notes * Telephone Encounter - Melina Estrada MD - 12/16/2024 1:53 PM EDT Chest x-ray was ordered at visit. Nola, I think you already faxed all the orders as requested after her visit? If not please refax a chest x-ray per her request. Dr. Echeverria said he would be open to discussing the dose further with her and potentially going up but he usually does 900 every 6 hours instead of 1200 every 8 hours. I recommend she schedule a visit with him to discuss further. documented in this encounter Plan of Treatment Upcoming Encounters Date Type Department Care Team (Latest Contact Info) Description 03/31/2025 11:00 AM EDT Office Visit General Surgery 9300 [place] [address] Michael Mora PA-C 9500 [place] [address] follow up- add on ok'd by Michael 04/07/2025 1:00 PM EDT [facility] Neurological Mu-Ism 9300 [place] [address] Agatha Kim PSYD 9500 [place] [address] 04/19/2025 11:00 AM EDT [facility] 9300 [place] [address] Joann Loera APRN.RUBBER BALL FINISHER 9500 [place] [address] Cognitive movement issues 04/21/2025 8:30 AM EDT [facility] Therapy [address] [address] Tiffany Banks, RD 9500 [place] [address] f/u TF forula tolerance and hydration 05/29/2025 9:00 AM EDT [facility] Gastroenterology [address] [place], [place] [phone] Johanna Martinez MD [facility] [address] [place], [place] [phone] 3 month follow up 06/28/2025 10:00 AM EDT [facility] Neurology Pain [address] [place] [phone] [place] [address] [place], [place] [phone] Follow up for pain documented as of this encounter Visit Diagnoses Not on filedocumented in this encounter Care Teams Utility Agent Relationship Specialty Start Date End Date Shlomo Hu II, MD 112 [facility] 110 [place] [address] PCP - General Internal Medicine 10/06/23 Jacob Sharp [address] [place] [id number] Referring 04/30/[address] [place] [phone] Registered Dietitian Nutrition 06/24/[address] [place] [phone] Registered Dietitian Nutrition 08/27/23 Yuan Miller MD, PhD [address] [place] [phone] Surgeon General Surgery 02/03/24 documented as of this encounter
--- OUTSIDE RECORDS SUMMARY | 2025-03-28 09:09 | XMS_ITS | Encounter Summary ---
Author Organization [facility] Address [address] [place] [address] Care Team Providers Care Surface Water Manager Name Role Phone Jacob Sharp Unavailable Rasheeda Newton RD Unavailable [phone] Unavailable [phone] Fritz HENDERSON MD, Shlomo Momin Primary Care Provider [phone] Yuan Miller MD, PhD Unavailable [phone] Source Comments In the event this information is protected by the Federal Confidentiality of Alcohol and Drug AbusePatient Records regulations: The Federal rules restrict any use of the information to criminally investigate or prosecute any alcohol or drug abuse patient.[facility] Encounter Details Date Type Department Care Team (Late st Contact Info) Description 01/15/2024 Patient Msg Gastroenterology [address] [id number] Provider, Ccf Medication information Social History Tobacco Use Types Packs/Day [...] place to sleep or slept in a mcfp (including now)? No 08/10/2023 Area Deprivation Index Answer Date Reagan rded National Score (1-100), lower number is lower ri sk 63 03/05/2023 State Score (1-10), lower number is lower risk 4 03/05/2023 Data from: https://www.neighborhoodatlas.medicine.[facility].edu/. Last address used for calculation [address] [...] Assessment Author No 08/17/2023 4:25 PM Millicent Mardigal RN * Are you blind or do [...] AM EDT Office Visit General Surgery 9300 [place] [address] Michael Mora PA-C 9500 [place] [address] follow up- add on ok'd by Michael 04/07/2025 1:00 PM EDT [facility] [address] [place] [phone] Agatha Kim PSYD [address] [place] [phone] 04/19/2025 11:00 AM EDT [facility] Neurological [facility]ist [address] [place] [phone] Joann Loera APRN.COMBINATION MAN 9500 [place] [address] Cognitive movement issues 04/21/2025 8:30 AM EDT [facility] Nutrition Therapy [address] [place] [phone] Tiffany Banks, RD [address] [place] [id number] f/u TF forula tolerance and hydration 05/29/2025 9:00 AM EDT [facility] Gastroenterology [address] [place] [phone] Johanna Martinez MD [facility] [address] [place], [place] [address] 3 month follow up 06/28/2025 10:00 AM T [facility] Neurology Pain [address] [place] [phone] [place] [address] [place] [phone] Follow up for pain documented as of [...] documented as of this encounter Care Teams Surface Water Manager Relationship Specialty Start Date End Date Shlomo Hu II, MD [address] [facility] 110 [place] [address] PCP - General Internal Medicine 10/06/23 Jacob Sharp [address] [place] [address] Referring 04/30/[address] [phone] Registered Dietitian Nutrition 06/24/[address]507 [place] [address] Registered Dietitian Nutrition 08/27/23 Yuan Miller MD, PhD 9500 [place] [address] Surgeon General Surgery 02/03/24 documented as of this encounter
--- OUTSIDE RECORDS SUMMARY | 2025-03-28 09:09 | XMS_ITS | Encounter Summary ---
Author Organization [facility] Address [address] [facility] [place] [address] Care Team Providers Care Electric Truck Driver Name Role Phone Shlomo Hu MD Primary Care Provider [phone] Claribel Scott RN Unavailable [phone] Jess Marsh SALES DEMONSTRATOR Unavailable Esthela Tesfaye WEATHERIZATION ADMINISTRATOR Unavailable [phone] Encounter Details Date Type Department Care Team (Late st Contact Info) Description 11/15/2024 Abstract [facility] [address] [facility] 110 [place] [address] Shlomo Hu MD 112 [facility] 110 [place] [address] Social History Tobacco Use Types [...] often do you attend chur ch or gnosticism services? 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 Not on file Not on file documented as of this encounter Plan of Treatment Upcoming Encounters Date Type Department Care Team (Late st Contact Info) Description 04/12/2025 9:50 AM EDT Office Visit [facility] [address] [place] [address] Tanya Lozano MD [address] [place] [address] 04/20/2025 3:00 PM EDT Office Visit [facility] PODIATRY [address] [facility] 120 [place] [address] Sonny Rodriguez DPLudmlia 3006 [facility] 5 [place] [address] 05/04/2025 2:50 PM EDT Office Visit [facility]OD[facility] [address] [facility] [place] 120 [place] [address] Sonny Rodriguez DPLudmila [address] [address] documented as of this encounter Visit Diagnoses Not on filedocumented in this encounter Additional Health Concerns Assessment Noted Time PHQ-9 Depression Total Score: 18 024 9:42 AM EDT documented as of this encounter Care Teams Electric Truck Driver Relationship Specialty Start Date End Date Shlomo Hu MD [address] [facility] 110 [place] [address] PCP - General Internal Medicine 02/15/23 Claribel Scott, RN [address] [place] [address] Licensed Practical Nurse Family Medicine 10/21/24 12/06/24 Jess Marsh LPN [address] [facility] 110 [place] [address] 12/06/24 Esthela Tesfaye LSW [address] [place] [address] Diesel Automotive Technician Family Medicine 02/03/25 documented as of this encounter
--- OUTSIDE RECORDS SUMMARY | 2025-03-28 09:09 | XMS_ITS | Encounter Summary ---
Author Organization [facility] Address [address] [place] [address] Care Team Providers Care Hr Specialist Name Role Phone Siobhan Sharpjusto Unavailable Rasheeda Newton RD Unavailable [phone] Unavailable [phone] Fritz HENDERSON MD, Shlomo Momin Primary Care Provider [phone] Yuan Miller MD, PhD Unavailable [phone] Source Comments In the event this information is protected by the Federal Confidentiality of Alcohol and Drug AbusePatient Records regulations: The Federal rules restrict any use of the information to criminally investigate or prosecute any alcohol or drug abuse patient.[facility] Encounter Details Date Type Department Care Team (Late st Contact Info) Description 11/17/2024 Patient Msg Pain Management [address] [place] [address] Provider, Ccf Social History Tobacco Use Types Packs/Day Years Used Date Smoking Tobacco: Never Smokeless Tobacco: Never Alcohol Use Standard Drinks/Week Comments Not Currently 0 (1 standard drink = 0.6 oz pur e alcohol) [facility] Utilities Answer Date Recorded In the past 12 months has th e [employer], gas, oil, or water company threatened to [...] any time in the past 12 m [facility], were you homeless or living in a [place] health [place] facility (including now)? No 10/18/2024 Area Deprivation Index Answer Date Reagan rded National Score (1-100), lower number is lower ri sk 63 03/05/2023 State Score (1-10), lower number is lower risk 4 03/05/2023 Data from: https://www.neighborhoodatlas.medicine.[facility]/. Last address used for calculation [address] 270 03/05/2023 Comments No Sex and [...] 11:00 AM EDT Office Visit General Surgery 2400 [place] [address] Michael Mora PA-C 9500 [place] [address] follow up- add on ok'd by Michael 04/07/2025 1:00 PM EDT [facility]rological [facility] 9300 [place] [address] Agatha Kim PSYD [address] [place] [phone] 04/19/2025 11:00 AM EDT [facility] [address] [place] [phone] Joann Loera APRN.MANAGER BODY 9500 [place] [address] Cognitive movement issues 04/21/2025 8:30 AM EDT [facility] Nutrition Therapy 2048 [place] [address] Tiffany Banks, RD 9500 [place] [address] f/u TF forula tolerance and hydration 05/29/2025 9:00 AM EDT [facility] Gastroenterology 2048 [place] [address] Johanna Martinez MD [facility] [address] [place] [address] 3 month follow up 06/28/2025 10:00 AM EDT [facility] Neurology Pain [address] [place] [phone] [place] [address] [place] [phone] Follow up for pain documented as of this encounter Visit Diagnoses Not on filedocumented in this encounter Care Teams Hr Specialist Relationship Specialty Start Date End Date Shlomo Hu II, MD [address] [place] 110 [place] [address] PCP - General Internal Medicine 10/06/23 Jacob Sharp [address] [place] [address] Referring 04/30/[address] [address] [phone] Registered Dietitian Nutrition 06/24/[address]509 [place] [address] Registered Dietitian Nutrition 08/27/23 Yuan Miller MD, PhD 9500 [place] [address] Surgeon General Surgery 02/03/24 documented as of this encounter
--- OUTSIDE RECORDS SUMMARY | 2025-03-28 09:09 | XMS_ITS | Encounter Summary ---
Author Organization [facility] Address [address] [place] [address] Care Team Providers Care Apron Man Name Role Phone Jacob Sharp Unavailable Rasheeda Newton RD Unavailable [phone] Unavailable [phone] Fritz HENDERSON MD, Shlomo Momin Primary Care Provider [phone] Yuan Miller MD, PhD Unavailable [phone] Source Comments In the event this information is protected by the Federal Confidentiality of Alcohol and Drug AbusePatient Records regulations: The Federal rules restrict any use of the information to criminally investigate or prosecute any alcohol or drug abuse patient.[facility] Encounter Details Date Type Department Care Team (Late st Contact Info) Description 12/04/2023 Get Medical Advice General Surgery 9300 [place] [address] Mark Cruz MD 9500 [place] [address] Report Social History Tobacco Use Types Packs/Day Years [...] slept in a custodial (including now)? No 08/10/2023 Area Deprivation Index Answer Date Reagan rded National Score (1-100), lower number is lower ri sk 63 03/05/2023 State Score (1-10), lower number is lower risk 4 03/05/2023 Data from: https://www.neighborhoodatlas.medicine.[facility].edu/. Last address used for calculation [address] 270 03/05/2023 Comments No Sex [...] of Assessment Author No 08/17/2023 4:25 PM iMllicent Madrigal RN documented as of this encounter [...] AM EDT Office Visit General Surgery 9300 [place] [address] Michael Mora PA-C 0937 [place] [address] follow up- add on ok'd by Michael 04/07/2025 1:00 PM EDT [facility] [address] [place] [phone] Agatha Kim PSYD 9500 [place] [address] 04/19/2025 11:00 AM EDT [facility] Neurological [place] 9300 [place] [address] Joann Loera APRN.RECORDER GRAVITY PROSPECTING 9500 [place] [address] Cognitive movement issues 04/21/2025 8:30 AM EDT [facility] Nutrition Therapy [address] [address] Tiffany Banks, RD [address] [place] [phone] f/u TF forula tolerance and hydration 05/29/2025 9:00 AM EDT [facility] Gastroenterology [address] [place] [phone] Johanna Martinez MD [facility] [address] [place] [address] 3 month follow up 06/28/2025 10:00 AM EDT [facility] Neurology Pain [address] [place] [address] [place] [address] [place] [address] Follow up for pain documented as of this encounter Visit Diagnoses Not on filedocumented in this encounter Additional Health Concerns Infection Onset Date Last Indicated Resolved Time COVID-19 Rule-Out 01/04/2024 01/04/2024 01/04/2024 5:37 PM EDT Respiratory Rule-Out 01/04/2024 01/04/2024 024 5:37 PM EDT COVID-19 Rule-Out 04/12/2024 04/12/2024 04/12/2024 3:56 PM EDT COVID-19 Confirmed Comment:Anticipate 10 day isolation 04/12/2024 04/18/202404/144 8:51 PM EDT COVID-19 Rule-Out 04/18/2024 04/18/2024 04/18/2024 2:28 PM EDT COVID-19 Rule-Out 07/29/2024 07/29/2024 07/29/2024 7:20 PM EST documented as of this encounter Care Teams Apron Man Relationship Specialty Start Date End Date Shlomo Hu II, MD [address] [place] [address] [place] [address] PCP - General Internal Medicine 10/06/23 Jacob Sharp [address] [place] [address] Referring 04/30/[address] [place] [phone] Registered Dietitian Nutrition 06/24/[address] [facility] [place] [address] Registered Dietitian Nutrition 08/27/23 Yuan Miller MD, PhD 950 [place] [address] Surgeon General Surgery 02/03/24 documented as of this encounter
--- OUTSIDE RECORDS SUMMARY | 2025-03-28 09:09 | XMS_ITS | Encounter Summary ---
Author Organization [facility] Address [address] [place] [address] Care Team Providers Care Office Agent Name Role Phone Siobhan Sharpjusto Unavailable Rasheeda Newton RD Unavailable [phone] Unavailable [phone] Fritz HENDERSON MD, Shlomo Momin Primary Care Provider [phone] Yuan Miller MD, PhD Unavailable [phone] Source Comments In the event this information is protected by the Federal Confidentiality of Alcohol and Drug AbusePatient Records regulations: The Federal rules restrict any use of the information to criminally investigate or prosecute any alcohol or drug abuse patient.[facility] Encounter Details Date Type Department Care Team (Late st Contact Info) Description 01/08/2024 [place] [address] Provider, Ccf Actionable Imaging Result Notification Patient Outreach Social History Tobacco Use Types Packs/Day Years [...] slept in a retirement (including now)? No 08/10/2023 Area Deprivation Index Answer Date Reagan rded National Score (1-100), lower number is lower ri sk 63 03/05/2023 State Score (1-10), lower number is lower risk 4 03/05/2023 Data from: https://www.neighborhoodatlas.medicine.[facility].edu/. Last address used for calculation [address] 270 03/05/2023 Comments No Sex [...] AM EDT Office Visit General Surgery 9300 [place] [address] Michael Mora PA-C 9500 [place] [address] follow up- add on ok'd by Michael 04/07/2025 1:00 PM EDT [facility] [address] [place] [phone] Agatha Kim PSYD [address] [place] [phone] 04/19/2025 11:00 AM EDT [facility] 9300 [place] [address] Joann Loera APRN.BACK TUFTER [address] [place] [phone] Cognitive movement issues 04/21/2025 8:30 AM T [facility] Nutrition Therapy [address] [place] 4590006 Tiffany Banks, RD [address] [place] [id number] f/u TF forula tolerance and hydration 05/29/2025 9:00 AM EDT [facility] Gastroenterology [address] [place] [phone] Johanna Martinez MD [facility] [address] [place], [place] 9[address] 3 month follow up 06/28/2025 10:00 AM T [facility] Neurology Pain [address] [place] [address] [place] [address] [place] [phone] Follow up for pain documented as of [...] documented as of this encounter Care Teams Office Agent Relationship Specialty Start Date End Date Shlomo Hu II, MD [address] [place] [address] [place] [address] PCP - General Internal Medicine 10/06/23 Jacob Sharp [address] [place] [address] Referring 04/30/[address] [place] [address] Registered Dietitian Nutrition 06/24/[address] 6265 [place] [address] Registered Dietitian Nutrition 08/27/23 Yuan Miller MD, PhD 8122 [place] [address] Surgeon General Surgery 02/03/24 documented as of this encounter
--- OUTSIDE RECORDS SUMMARY | 2025-03-28 09:09 | XMS_ITS | Encounter Summary ---
Author Organization [facility] Address [address] [facility] [place] [address] Care Team Providers Care Public Policy Associate Name Role Phone Shlomo Hu MD Primary Care Provider [phone] Claribel Scott RN Unavailable [phone] Jess Marsh LOADER Unavailable Esthela Tesfaye PROTECTION CHIEF INDUSTRIAL PLANT Unavailable [phone] Encounter Details Date Type Department Care Team (Late st Contact Info) Description 11/16/2024 Abstract [facility] [address] [facility] 110 [place] [address] Shlomo Hu MD 112 [facility] 110 [place] [address] Social History Tobacco Use Types [...] any clubs o r organizations such as christian groups, unions, fraternal or athletic groups, or [...] Recorded Patient Health Questionnaire-2 Score 0 11/10/2024 [facility] of Occupat ional Health - Occupational [...] any time in the past 12 m [facility], were you homeless or living [...] 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 Not on file Not on file documented as of this encounter Plan of Treatment Upcoming Encounters Date Type Department Care Team (Late st Contact Info) Description 04/12/2025 9:50 AM EDT Office Visit [facility] [address] [place] [address] Tanya Lozano MD [address] [place] [address] 04/20/2025 3:00 PM EDT Office Visit [facility] POD[facility]AT[facility] [address] [facility] 120 [place] [address] Sonny Rodriguez DPLudmila 3006 [facility] 5 [place] [address] 05/04/2025 2:50 PM EDT Office Visit [facility] [address] [facility] 120 [place] [address] Sonny Rodriguez DPLudmila [address] [address] documented as of this encounter Visit Diagnoses Not on filedocumented in this encounter Additional Health Concerns Assessment Noted Time PHQ-9 Depression Total Score: 18 024 9:42 AM EDT documented as of this encounter Care Teams Public Policy Associate Relationship Specialty Start Date End Date Shlomo Hu MD [address] [facility] 110 [place] [address] PCP - General Internal Medicine 02/15/23 Claribel Scott, RN [address] [place] [address] Licensed Practical Nurse Family Medicine 10/21/24 12/06/24 Jess Marsh LPN [address] [facility] 110 [place] [address] 12/06/24 Esthela Tesfaye LSW [address] [place] [address] Civil Engineering Professor Family Medicine 02/03/25 documented as of this encounter
--- OUTSIDE RECORDS SUMMARY | 2025-03-28 09:09 | XMS_ITS | Encounter Summary ---
Author Organization [facility] Address [address] [place] [address] Care Team Providers Care Director Transportation Name Role Phone Sean Ruiz DO Primary Care Provider [phone] Jacob Sharp Unavailable Rasheeda Newton RD Unavailable [phone] Unavailable [phone] Fritz HENDERSON MD, Shlomo B Primary Care Provider [phone] Yuan Miller MD, PhD Unavailable [phone] Source Comments In the event this information is protected by the Federal Confidentiality of Alcohol and Drug AbusePatient Records regulations: The Federal rules restrict any use of the information to criminally investigate or prosecute any alcohol or drug abuse patient.[facility] Encounter Details Date Type Department Care Team (Late st Contact Info) Description 05/30/2020 Patient Msg Plastic Surgery [address] [place], [place] [id number] [place] [address] [place], [place] [phone] RE: Request an Appointment Social History Tobacco Use Types Packs/Day [...] of Binge Drinking Not on file 09/14 Comments No Sex and Gender Information Value [...] have Coronavirus / COVID-19? No / Unsure 05/31/2020 8:14 AM EDT documented as of this encounter Functional [...] AM EDT Office Visit General Surgery 9[address] [place] [address] Michael Mora PA-C [address] [place] [address] follow up- add on ok'd by Michael 04/07/2025 1:00 PM EDT [facility] Neurological Spiritism [address] [place] [address] Agatha Kim PSYD [address] [place] [address] 04/19/2025 11:00 AM EDT [facility] Neurological Spiritism [address] [place] [address] Joann Loera APRN.PHOTONICS ENGINEERING TECHNICIAN 9500 [place] [address] Cognitive movement issues 04/21/2025 8:30 AM EDT [facility] Nutrition Therapy [address] [place] [id number] Tiffany Banks, RD [address] [place] [address] f/u TF forula tolerance and hydration 05/29/2025 9:00 AM EDT [facility] Gastroenterology [address] [place] 1455506 Johanna Martinez MD [facility] [address] [place], [place] [address] 3 month follow up 06/28/2025 10:00 AM EDT [facility] Neurology Pain [address] [place] [phone] [place] [address] [place] [address] Follow up for pain documented as of [...] documented as of this encounter Care Teams Director Transportation Relationship Specialty [place] [address] [place] [address] PCP - General Family Medicine 07/09/12 10/05/23 Shlomo Hu II, MD 112 [facility] 110 [place] [address] PCP - General Internal Medicine 10/06/23 Jacob Sharp [address] [place] [id number] Referring 04/30/[address] [id number] Registered Dietitian Nutrition 06/24/[address] [place] [address] Registered Dietitian Nutrition 08/27/23 Yuan Miller MD, PhD [address] [place] [address] Surgeon General Surgery 02/03/24 documented as of this encounter
--- OUTSIDE RECORDS SUMMARY | 2025-03-28 09:09 | XMS_ITS | Encounter Summary ---
Author Organization [facility] Address [address] [place] [address] Care Team Providers Care Bag Machine Operator Name Role Phone Jacob Sharp Unavailable Rasheeda Newton RD Unavailable [phone] Unavailable [phone] Fritz HENDERSON MD, Shlomo Momin Primary Care Provider [phone] Yuan Miller MD, PhD Unavailable [phone] Source Comments In the event this information is protected by the Federal Confidentiality of Alcohol and Drug AbusePatient Records regulations: The Federal rules restrict any use of the information to criminally investigate or prosecute any alcohol or drug abuse patient.[facility] Encounter Details Date Type Department Care Team (Late st Contact Info) Description 01/15/2024 Patient Msg Pain Management [address] [place] [place] [address] Mary Arthur APRN.MANUFACTURING EXECUTIVE [address] [place] [address] Appointment Request Social History Tobacco Use Types Packs/Day Years [...] place to sleep or slept in a fci (including now)? No 08/10/2023 Area Deprivation Index Answer Date Reagan rded National Score (1-100), lower number is lower ri sk 63 03/05/2023 State Score (1-10), lower number is lower risk 4 03/05/2023 Data from: https://www.neighborhoodatlas.medicine.[facility].edu/. Last address used for calculation [address] [facility] [address] 03/05/2023 Comments No Sex and Gender [...] AM EDT Office Visit General Surgery 9300 [place] [address] Michael Mora PA-C [address] [place] [address] follow up- add on ok'd by Michael 04/07/2025 1:00 PM EDT [facility]rological [facility] [address] [place] [phone] Agatha Kim PSYD 9500 [place] [address] 04/19/2025 11:00 AM EDT [facility] Neurological Shinto [address] [place] [address] Joann Loera APRN.MANUFACTURING EXECUTIVE [address] [place] [address] Cognitive movement issues 04/21/2025 8:30 AM EDT [facility] Nutrition Therapy [address] [place] [phone] Tiffany Banks, RD [address] [place] [id number] f/u TF forula tolerance and hydration 05/29/2025 9:00 AM EDT [facility] Gastroenterology [address] [place] [phone] Johanna Martinez MD [facility] [address] [place], [place] [phone] 3 month follow up 06/28/2025 10:00 AM EDT [facility] Neurology Pain [address] [place] [address] [place] [address] [place] [address] Follow up for pain documented as of [...] documented as of this encounter Care Teams Bag Machine Operator Relationship Specialty Start Date End Date Shlomo Hu II, MD [address] [place] [address] PCP - General Internal Medicine 10/06/23 Jacob Sharp [address] [place] [id number] Referring 04/30/[address] [place] [id number] Registered Dietitian Nutrition 06/24/[address]509 [place] [address] Registered Dietitian Nutrition 08/27/23 Yuan Miller MD, PhD 9500 [place] [address] Surgeon General Surgery 02/03/24 documented as of this encounter
--- OUTSIDE RECORDS SUMMARY | 2025-03-28 09:09 | XMS_ITS | Encounter Summary ---
Author Organization [facility] Address [address] [place] [address] Care Team Providers Care Roundhouse Worker Name Role Phone Jacob Sharp Unavailable Rasheeda Newton RD Unavailable [phone] Unavailable [phone] Fritz HENDERSON MD, Shlomo Momin Primary Care Provider [phone] Yuan Miller MD, PhD Unavailable [phone] Source Comments In the event this information is protected by the Federal Confidentiality of Alcohol and Drug AbusePatient Records regulations: The Federal rules restrict any use of the information to criminally investigate or prosecute any alcohol or drug abuse patient.[facility] Encounter Details Date Type Department Care Team (Late st Contact Info) Description 11/17/2024 Get Medical Advice Pain Management [address] [place], [place] [phone] Johann Echeverria MD [address] [place], [place] [address] Medicine Social History Tobacco Use Types Packs/Day Years Used Date Smoking Tobacco: Never Smokeless Tobacco: Never Alcohol Use Standard Drinks/Week Comments Not Currently 0 (1 standard drink = 0.6 oz pur e alcohol) [facility] Utilities Answer Date Recorded In the [...] lower risk 4 03/05/2023 Data from: https://www.neighborhoodatlas.medicine.[facility]/. Last address used for calculation [address] 270 03/05/2023 Comments No Sex [...] Telephone Encounter - Daniela Ford LPN - 11/18/2024 3:13 PM EST Called patient name and confirmed. Patient scheduled with Dr. Echeverria 11/23/24 at 3pm documented in this encounter Plan of Treatment Upcoming Encounters Date Type Department Care Team (Latest Contact Info) Description 03/31/2025 11:00 AM EDT Office Visit General Surgery 9300 [place] [address] Michael Mora PA-C 9500 [place] [address] follow up- add on ok'd by Michael 04/07/2025 1:00 PM EDT [facility] Neurological Islam [address] [place] [address] [phone] Agatha Kim PSYD 9500 [place] [address] 04/19/2025 11:00 AM EDT [facility] Neurological Islam [address] [place] [address] Joann Loera APRN.COMPUTER BOOKKEEPER 9500 [place] [address] Cognitive movement issues 04/21/2025 8:30 AM EDT [facility] Nutrition Therapy [address] [place] [address] f/u TF forula tolerance and hydration 05/29/2025 9:00 AM EDT [facility] Gastroenterology [address] [place] [phone] Johanna Martinez MD [facility] [address] [place] [address] 3 month follow up 06/28/2025 10:00 AM EDT [facility] Neurology Pain [address] [place] 0812706 [place] [address] [place], [place] [phone] Follow up for pain documented as of this encounter Visit Diagnoses Not on filedocumented in this encounter Care Teams Roundhouse Worker Relationship Specialty Start Date End Date Shlomo Hu II, MD 112 [facility] 110 [place] [address] PCP - General Internal Medicine 10/06/23 Jacob Sharp [address] [place] [phone] Referring 04/30/[address] [place], [place] [phone] Registered Dietitian Nutrition 06/24/[address] [facility] [place] 0812795 Registered Dietitian Nutrition 08/27/23 Yuan Miller MD, PhD [address] [place] [phone] Surgeon General Surgery 02/03/24 documented as of this encounter
--- OUTSIDE RECORDS SUMMARY | 2025-03-28 09:09 | XMS_ITS | Encounter Summary ---
Author Organization [facility] Address [address] [place] [address] Care Team Providers Care Physical Therapy Supervisor Name Role Phone Jacob Sharp Unavailable Rasheeda Newton RD Unavailable [phone] Unavailable [phone] Fritz HENDERSON MD, Shlomo Momin Primary Care Provider [phone] Yuan Miller MD, PhD Unavailable [phone] Source Comments In the event this information is protected by the Federal Confidentiality of Alcohol and Drug AbusePatient Records regulations: The Federal rules restrict any use of the information to criminally investigate or prosecute any alcohol or drug abuse patient.[facility] Encounter Details Date Type Department Care Team (Late st Contact Info) Description 12/18/2023 Patient Msg General Surgery [address] [place], [place] [phone] Yenny Cast RN Sooner Surgery Date Social History Tobacco Use Types Packs/Day Years [...] slept in a long-term (including now)? No 08/10/2023 Area Deprivation Index Answer Date Reagan rded National Score (1-100), lower number is lower ri sk 63 03/05/2023 State Score (1-10), lower number is lower risk 4 03/05/2023 Data from: https://www.neighborhoodatlas.medicine.[facility].edu/. Last address used for calculation [address] [...] AM EDT Office Visit General Surgery 9300 [place] [address] Michael Mora PA-C [address] [place] [phone] follow up- add on ok'd by Michael 04/07/2025 1:00 PM EDT [facility] Neurological Jainism [address] [place] [phone] Agatha Kim PSYD [address] [place] 8794395 04/19/2025 11:00 AM EDT [facility] Neurological Jainism [address] [place] [address] [phone] Joann Loera APRN.TILE SETTER APPRENTICE 9500 [place] [address] Cognitive movement issues 04/21/2025 8:30 AM EDT [facility] Nutrition Therapy [address] [place] [phone] Tiffany Banks, RD [address] [place] 8794395 f/u TF forula tolerance and hydration 05/29/2025 9:00 AM EDT [facility] Gastroenterology [address] [address] Johanna Martinez MD [facility] [address] [place], [place] [address] 3 month follow up 06/28/2025 10:00 AM EDT [facility] Neurology Pain [address] [place] 8794306 [place] [address] [place] [address] Follow up for pain documented as of [...] 04/18/202404/14 8:51 PM EDT COVID-19 Rule-Out 04/18/2024 04/18/202404/1804/18/2024 2:28 PM EDT COVID-19 Rule-Out 07/29/2024 07/29/2024 07/29/2024 7:20 PM EST documented as of this encounter Care Teams Physical Therapy Supervisor Relationship Specialty Start Date End Date Shlomo Hu II, MD [address] [place] [address] PCP - General Internal Medicine 10/06/23 Jacob Sharp [address] [place] [address] Referring 04/30/[address] 0671006 Registered Dietitian Nutrition 06/24/[address]505 [place] [address] Registered Dietitian Nutrition 08/27/23 Yuan Miller MD, PhD [address] [place] [address] Surgeon General Surgery 02/03/24 documented as of this encounter
--- OUTSIDE RECORDS SUMMARY | 2025-03-28 09:09 | XMS_ITS | Encounter Summary ---
Author Organization [facility] Address [address] [facility] [place] [address] Care Team Providers Care Box Estimator Name Role Phone Shlomo Hu MD Primary Care Provider [phone] Claribel Scott RN Unavailable [phone] Jess Marsh HYDROELECTRIC COMPONENT MACHINIST Unavailable Esthela Tesfaye JIG AND FIXTURE BUILDER APPRENTICE Unavailable [phone] Encounter Details Date Type Department Care Team (Late st Contact Info) Description 11/10/2024 Abstract [facility] [address] [facility] 110 [place] [address] Shlomo Hu MD 112 [facility] 110 [place] [address] Social History Tobacco Use Types [...] often do you attend chur ch or restoration services? Never 04/18/2024 Do you belong to any clubs o r organizations such as jainism groups, unions, fraternal or athletic groups, or [...] Recorded Patient Health Questionnaire-2 Score 0 11/10/2024 [facility] - [...] in a senior living (including now)? No 03/01/2023 Housing Stability Vital [...] any time in the past 12 m [facility], were you homeless or living in a senior living (including now)? 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 Not on [...] Visit [facility] [address] [place] [address] Tanya Lozano MD [address] [place] [address] 04/20/2025 3:00 PM EDT Office Visit [facility] P[facility] [address] [place] [phone] Sonny Rodriguez DPM [address] [facility] 5 [place] [address] 05/04/2025 2:50 PM EDT Office Visit [facility] [address] [place] [address] Sonny Rodriguez DPM 3[address] [facility] 5 [place] [address] documented as of this encounter Visit Diagnoses Not on filedocumented in this encounter Additional Health Concerns Assessment Noted Time PHQ-9 Depression Total Score: 18 024 9:42 AM EDT documented as of this encounter Care Teams Box Estimator Relationship Specialty Start Date End Date Shlomo Hu MD [address] [place] [address] PCP - General Internal Medicine 02/15/23 Claribel Scott, RN [address] [place] [address] Licensed Practical Nurse Family Medicine 10/21/24 12/06/24 Jess Marsh LPN 112 [facility] 110 [place] [address] 12/06/24 Esthela Tesfaye LSW [address] [place] [address] Vascular Neurologist Family Medicine 02/03/25 documented as of this encounter
--- OUTSIDE RECORDS SUMMARY | 2025-03-28 09:09 | XMS_ITS | Encounter Summary ---
Author Organization [facility] Address [address] [facility] [place] [address] Care Team Providers Care Systems Architect Name Role Phone Shlomo Hu MD Primary Care Provider [phone] Jess Marsh LPN Unavailable Esthela Tesfaye RUG INSPECTOR Unavailable [phone] Encounter Details Date Type Department Care Team (Late st Contact Info) Description 02/02/2025 Abstract [facility] [address] [facility] 110 [place] [address] Shlomo Hu MD [address] [place] [facility] 110 [place] [address] Social History Tobacco Use Types Packs/Day Years [...] any clubs o r organizations such as religion groups, unions, fraternal or athletic groups, or [...] Recorded Patient Health Questionnaire-2 Score 0 01/05/2025 [facility] - Occupational [...] place to sleep or slept in a alf (including now)? No 03/01/2023 Housing Stability Vital [...] in the past 12 m [facility], were you homeless or living in a alf (including now)? 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 Not on file Not on file documented as of this encounter Plan of Treatment Upcoming Encounters Date Type Department Care Team (Late st Contact Info) Description 04/12/2025 9:50 AM EDT Office Visit [facility] [address] [place] [address] Tanya Lozano MD [address] [place] [address] 04/20/2025 3:00 PM EDT Office Visit [facility] [address] [place] [address] Sonny Rodriguez DPM [address] [facility] [address] [place] [address] 05/04/2025 2:50 PM EDT Office Visit [facility] [address] [place] [address] Sonny Rodriguez DPM 3006 [facility] 5 [place] [address] documented as of this encounter Visit Diagnoses Not on filedocumented in this encounter Additional Health Concerns Assessment Noted Time PHQ-9 Depression Total Score: 18 024 9:42 AM EDT documented as of this encounter Care Teams Systems Architect Relationship Specialty Start Date End Date Shlomo Hu MD [address] [place] [address] PCP - General Internal Medicine 02/15/23 Jess Marsh LPN [address] [place] [address] 12/06/24 Esthela Tesfaye, KIRA [address] [place] [address] Java Web Architect Family Medicine 02/03/25 documented as of this encounter
--- OUTSIDE RECORDS SUMMARY | 2025-03-28 09:09 | XMS_ITS | Encounter Summary ---
Author Organization [facility] Address [address] [place] [address] Care Team Providers Care Md Ophthalmologist Name Role Phone Jacob Sharp Unavailable Rasheeda Newton RD Unavailable [phone] Unavailable [phone] Fritz HENDERSON MD, Shlomo Momin Primary Care Provider [phone] Yuan Miller MD, PhD Unavailable [phone] Source Comments In the event this information is protected by the Federal Confidentiality of Alcohol and Drug AbusePatient Records regulations: The Federal rules restrict any use of the information to criminally investigate or prosecute any alcohol or drug abuse patient.[facility] Encounter Details Date Type Department Care Team (Late st Contact Info) Description 12/02/2023 Patient Msg Gastroenterology [address] [place], [place] [phone] Provider, [facility] Dr. Garnica office visit Social History Tobacco Use Types Packs/Day Years [...] PHQ-2 Answer Date Recorded PHQ-2 score 4 10/01/2023 Hunger Vital Sign Answer Date Recorded Within [...] slept in a assisted (including now)? No 08/10/2023 Area Deprivation Index Answer Date Reagan rded National Score (1-100), lower number is lower ri sk 63 03/05/2023 State Score (1-10), lower number is lower risk 4 03/05/2023 Data from: https://www.neighborhoodatlas.medicine.[facility].edu/. Last address used for calculation [address] [...] Assessment Author No 06/12/2023 1:45 PM EDT Vanan Li RN * Do you have difficulty [...] AM EDT Office Visit General Surgery 9300 [place] [address] Michael Mora PA-C [address] [place] [phone] follow up- add on ok'd by Michael 04/07/2025 1:00 PM EDT [facility] [address] [place] [address] [phone] Agatha Kim PSYD [address] [place] [phone] 04/19/2025 11:00 AM EDT [facility] Neurological Spiritism [address] [address] [phone] Joann Loera APRN.CARTOGRAPHIC DESIGNER 9500 [place] [address] Cognitive movement issues 04/21/2025 8:30 AM EDT [facility] Nutrition Therapy [address] [place] [phone] Tiffany Banks, RD [address] [place] [phone] f/u TF forula tolerance and hydration 05/29/2025 9:00 AM EDT [facility] Gastroenterology [address] [place] [address] Johanna Martinez MD [facility] [address] [place], [place] [address] 3 month follow up 06/28/2025 10:00 AM EDT [facility] Neurology Pain [address] [place] [phone] [place] [address] [place] [phone] Follow up for pain documented as of [...] 04/18/202404/14 8:51 PM EDT COVID-19 Rule-Out 04/18/2024 04/18/202404/18/2024 2:28 PM EDT COVID-19 Rule-Out 07/29/2024 07/29/2024 07/29/2024 7:20 PM EST documented as of this encounter Care Teams Md Ophthalmologist Relationship Specialty Start Date End Date Shlomo Hu II, MD [address] [place] [address] PCP - General Internal Medicine 10/06/23 Jacob Sharp [address] [place] [address] Referring 04/30/[address] [address] [address] Registered Dietitian Nutrition 06/24/[address] [place] [address] Registered Dietitian Nutrition 08/27/23 Yuan Miller MD, PhD 9500 [place] [address] Surgeon General Surgery 02/03/24 documented as of this encounter
--- OUTSIDE RECORDS SUMMARY | 2025-03-28 09:09 | XMS_ITS | Encounter Summary ---
Author Organization [facility] Address [address] [place] [address] Care Team Providers Care Jacquard Loom Weaver Name Role Phone Jacob Sharp Unavailable Rasheeda Newton RD Unavailable [phone] Unavailable [phone] Fritz HENDERSON MD, Shlomo Momin Primary Care Provider [phone] Yuan Mliler MD, PhD Unavailable [phone] Source Comments In the event this information is protected by the Federal Confidentiality of Alcohol and Drug AbusePatient Records regulations: The Federal rules restrict any use of the information to criminally investigate or prosecute any alcohol or drug abuse patient.[facility] Encounter Details Date Type Department Care Team (Late st Contact Info) Description 12/15/2023 Patient Msg Gastroenterology [address] [place] [address] Debi Abrams RN Prep instructions for 12/22/23 appt Social History Tobacco Use Types Packs/Day Years [...] place to sleep or slept in a jail (including now)? No 08/10/2023 Area Deprivation Index Answer Date Reagan rded National Score (1-100), lower number is lower ri sk 63 03/05/2023 State Score (1-10), lower number is lower risk 4 03/05/2023 Data from: https://www.neighborhoodatlas.medicine.[facility].edu/. Last address used for calculation [...] AM EDT Office Visit General Surgery [address] [place] [address] Michael Mora PA-C [address] [place], [place] [phone] follow up- add on ok'd by Michael 04/07/2025 1:00 PM EDT [facility] [address] [place] [phone] Agatha Kim PSYD [address] [place] [address] [id number] 04/19/2025 11:00 AM EDT [facility] Neurological Yazidi [address] [place] [address] Joann Loera APRN.MANAGING CONSULTANT CLINICAL PROFESSOR [address] [place] [address] Cognitive movement issues 04/21/2025 8:30 AM EDT [facility] Nutrition Therapy [address] [phone] Tiffany Banks, RD [address] [place] [address] [id number] f/u TF forula tolerance and hydration 05/29/2025 9:00 AM EDT [facility] Gastroenterology [address] [place] [phone] Johanna Martinez MD [facility] [address] [place], [place] [id number] 3 month follow up 06/28/2025 10:00 AM EDT [facility] Neurology Pain [address] [place] [address] [place] [address] [place] [address] Follow up for pain documented as of [...] documented as of this encounter Care Teams Jacquard Loom Weaver Relationship Specialty Start Date End Date Shlomo Hu II, MD [address] [place] [address] PCP - General Internal Medicine 10/06/23 Jacob Sharp [address] [place] [address] Referring 04/30/[address] [place] [address] Registered Dietitian Nutrition 06/24/[address] [place] [address] Registered Dietitian Nutrition 08/27/23 Yuan Miller MD, PhD [address] [place] [address] Surgeon General Surgery 02/03/24 documented as of this encounter
--- OUTSIDE RECORDS SUMMARY | 2025-03-28 09:09 | XMS_ITS | Encounter Summary ---
Author Organization [facility] Address [address] [facility] [place] [address] Care Team Providers Care Lumber Bearer Name Role Phone Shlomo Hu MD Primary Care Provider [phone] Claribel Scott RN Unavailable [phone] Jess Marsh EDGE TRIMMER MECHANIC Unavailable Esthela Tesfaye PRACTICAL MINISTRIES PROFESSOR Unavailable [phone] Encounter Details Date Type Department Care Team (Late st Contact Info) Description 11/17/2024 Abstract [facility] [address] [facility] 110 [place] [address] Shlomo Hu MD 112 [facility] 110 [place] [address] Social History Tobacco Use Types [...] often do you attend chur ch or mu-ism services? Never 04/18/2024 Do you belong to any clubs o r organizations such as adventist groups, unions, fraternal or athletic groups, or [...] Recorded Patient Health Questionnaire-2 Score 0 11/10/2024 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 Not on file Not on file documented as of this encounter Plan of Treatment Upcoming Encounters Date Type Department Care Team (Late st Contact Info) Description 04/12/2025 9:50 AM EDT Office Visit [facility] ENDO[facility] [address] [place] [address] Tanya Lozano MD [address] [place] [address] 04/20/2025 3:00 PM EDT Office Visit [facility] PODIATRY [address] [facility] 120 [place] [address] Sonny Rodriguez DPLudmila 3006 [facility] 5 [place] [address] 05/04/2025 2:50 PM EDT Office Visit [facility] [address] [facility] 120 [place] [address] Sonny Rodriguez DPLudmila [address] [address] documented as of this encounter Visit Diagnoses Not on filedocumented in this encounter Additional Health Concerns Assessment Noted Time PHQ-9 Depression Total Score: 18 024 9:42 AM EDT documented as of this encounter Care Teams Lumber Bearer Relationship Specialty Start Date End Date Shlomo Hu MD [address] [place] [address] [place] [address] PCP - General Internal Medicine 02/15/23 Claribel Scott, RN [address] [place] [address] Licensed Practical Nurse Family Medicine 10/21/24 12/06/24 Jess Marsh LPN [address] [place] [address] [place] [address] 12/06/24 Esthela Tesfaye LSW [address] [place] [address] Custodial Officer Family Medicine 02/03/25 documented as of this encounter
--- OUTSIDE RECORDS SUMMARY | 2025-03-28 09:09 | XMS_ITS | Encounter Summary ---
Author Organization [facility] Address [address] [facility] [place] [address] Care Team Providers Care Pipe Setter Name Role Phone Shlomo Hu MD Primary Care Provider [phone] Jess Marsh LPN Unavailable Esthela Tesfaye FIXED ROUTE BUS OPERATOR Unavailable [phone] Encounter Details Date Type Department Care Team (Late st Contact Info) Description 02/14/2025 Abstract [facility] [address] [facility] 110 [place] [address] Shlomo Hu MD [address] [facility] 110 [place] [address] Social History Tobacco Use Types Packs/Day Years [...] How often do you attend chur or synagogue services? 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 Not on file Not on file documented as of this encounter Plan of Treatment Upcoming Encounters Date Type Department Care Team (Late st Contact Info) Description 04/12/2025 9:50 AM EDT Office Visit [facility] [address] [place] [address] Tanya Lozano MD [address] [place] [address] 04/20/2025 3:00 PM EDT Office Visit [facility] POD[facility] [address] [place] [address] [place] [address] Sonny Rodriguez DPM [address] [facility] [address] [place] [address] 05/04/2025 2:50 PM EDT Office Visit [facility] POD[facility] [address] [place] [address] [place] [address] Sonny Rodriguez DPM [address] [facility] 5 [place] [address] documented as of this encounter Visit Diagnoses Not on filedocumented in this encounter Additional Health Concerns Assessment Noted Time PHQ-9 Depression Total Score: 18 024 9:42 AM EDT documented as of this encounter Care Teams Pipe Setter Relationship Specialty Start Date End Date Shlomo Hu MD [address] [place] [address] PCP - General Internal Medicine 02/15/23 Jess Marsh LPN [address] [place] [address] [place] [address] 12/06/24 Esthela Tesfaye, KIRA [address] [place] [address] General I Farmworker Family Medicine 02/03/25 documented as of this encounter
--- OUTSIDE RECORDS SUMMARY | 2025-03-28 09:09 | XMS_ITS | Encounter Summary ---
Author Organization [facility] Address [address] [facility] [place] [address] Care Team Providers Care Christmas Tree Farm Manager Name Role Phone Shlomo Hu MD Primary Care Provider [phone] Thursday, Toya RETAIL ASSOCIATE MANAGER BILINGUAL Unavailable [phone] Shante Kumar RAILROAD AUDITOR-RESEARCH PHLEBOTOMIST Unavailable Claribel Scott RN Unavailable [phone] Jess Marsh RETAIL ASSOCIATE MANAGER BILINGUAL Unavailable Esthela Tesfaye EMERGENCY DEPARTMENT COORDINATOR Unavailable [phone] Encounter Details Date Type Department Care Team (Late st Contact Info) Description 08/08/2024 Abstract [facility] 112 [facility] 110 [place] [address] Shlomo Hu MD 112 [facility] 110 [place], [place] [address] Social History Tobacco Use Types Packs/Day Years [...] often do you attend chur ch or restorationist services? Never 04/18/2024 Do you belong to any clubs o r organizations such as hindu groups, unions, fraternal or athletic groups, or [...] Answer Date Recorded Patient Health Questionnaire-2 Score 1 06/09/2024 [facility] of Occupat ional Health - Occupational Stress [...] place to sleep or slept in a half-way (including now)? No 03/01/2023 Housing Stability Vital [...] any time in the past 12 m [facility], were you homeless or living in a half-way (including now)? 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 Not on file Not on file documented as of this encounter Plan of Treatment Upcoming Encounters Date Type Department Care Team (Late st Contact Info) Description 04/12/2025 9:50 AM EDT Office Visit [facility] ENDO[facility]IN[facility] [address] [place] [address] Tanya Lozano MD [address] [place] [address] 04/20/2025 3:00 PM EDT Office Visit [facility] [address] [place] [place] [address] Sonny Rodriguez DPM 3[address] [facility] 5 [place] [address] 05/04/2025 2:50 PM EDT Office Visit [facility] POD[facility] [address] [place] [place] [address] Sonny Rodriguez DPLudmila 3006 [facility] 5 [place] [address] documented as of this encounter Visit Diagnoses Not on filedocumented in this encounter Additional Health Concerns Assessment Noted Time PHQ-9 Depression Total Score: 18 024 9:42 AM EDT documented as of this encounter Care Teams Christmas Tree Farm Manager Relationship Specialty Start Date End Date Shlomo Hu MD [address] [place] [address] PCP - General Internal Medicine 02/15/23 Shante Kumar APRN-RESEARCH PHLEBOTOMIST [address] [place] [address] PCP - [place] Commercial 07/15/24 ThursdayToya LPN [address] [facility] [address] [place] [address] Licensed Practical Nurse Family Medicine 01/19/24 10/21/24 Claribel Scott, RN [address] [place] [address] Licensed Practical Nurse Family Medicine 10/21/24 12/06/24 Jess Marsh LPN [address] [place] [address] 12/06/24 Esthela Tesfaye, KIRA [address] [place] [address] Shipyard Painter Apprentice Family Medicine 02/03/25 documented as of this encounter
--- OUTSIDE RECORDS SUMMARY | 2025-03-28 09:09 | XMS_ITS | Encounter Summary ---
Author Organization [facility] Address [address] [facility] [place] [address] Care Team Providers Care Sweat Box Attendant Name Role Phone Shlomo Hu MD Primary Care Provider [phone] Claribel Scott RN Unavailable [phone] Jess Marsh AUTOMOTIVE COLLISION ESTIMATOR Unavailable Esthela Tesfaye TINTER PHOTOGRAPH Unavailable [phone] Encounter Details Date Type Department Care Team (Late st Contact Info) Description 11/04/2024 Abstract [facility] [address] [facility] 110 [place] [address] Shlomo Hu MD 112 [facility] 110 [place] [address] Social History Tobacco Use Types [...] often do you attend chur ch or presybeterian services? Never 04/18/2024 Do you belong to any clubs o r organizations such as cheondoism groups, unions, fraternal or athletic groups, or [...] Date Recorded Patient Health Questionnaire-2 Score 2 09/19/2024 [facility] - [...] [place] [facility] [place] (including now)? No 03/01/2023 Housing Stability Vital [...] [place] [facility] [place] (including now)? 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 Not on file Not on file documented as of this encounter Plan of Treatment Upcoming Encounters Date Type Department Care Team (Late st Contact Info) Description 04/12/2025 9:50 AM EDT Office Visit [facility] ENDO[facility] [address] [place] [address] Tanya Lozano MD [address] [place] [address] 04/20/2025 3:00 PM EDT Office Visit [facility] PODIATRY [address] [facility] 120 [place] [address] Sonny Rodriguez DPLudmila 3006 [facility] 5 [place] [address] 05/04/2025 2:50 PM EDT Office Visit [facility] PODIATRY [address] [facility] 120 [place] [address] Sonny Rodriguez DPLudmila [address] [address] documented as of this encounter Visit Diagnoses Not on filedocumented in this encounter Additional Health Concerns Assessment Noted Time PHQ-9 Depression Total Score: 18 024 9:42 AM EDT documented as of this encounter Care Teams Sweat Box Attendant Relationship Specialty Start Date End Date Shlomo Hu MD [address] [facility] 110 [place] [address] PCP - General Internal Medicine 02/15/23 Claribel Scott, RN [address] [place] [address] Licensed Practical Nurse Family Medicine 10/21/24 12/06/24 Jess Marsh LPN [address] [facility] 110 [place] [address] 12/06/24 Esthela Tesfaye LSW [address] [place] [address] Salon Shampoo Assistant Family Medicine 02/03/25 documented as of this encounter
--- OUTSIDE RECORDS SUMMARY | 2025-03-28 09:10 | XMS_ITS | Encounter Summary ---
Author Organization [facility] Address [address] [place], [place] [address] Care Team Providers Care Packaging Engineer Name Role Phone Sean Ruiz DO Primary Care Provider [phone] Jacob Sharp Unavailable Rasheeda Newton RD Unavailable [phone] Unavailable [phone] Fritz HENDERSON MD, Shlomo B Primary Care Provider [phone] Yuan Miller MD, PhD Unavailable [phone] Source Comments In the event this information is protected by the Federal Confidentiality of Alcohol and Drug AbusePatient Records regulations: The Federal rules restrict any use of the information to criminally investigate or prosecute any alcohol or drug abuse patient.[facility] Encounter Details Date Type Department Care Team (Late st Contact Info) Description 09/30/2023 Get Medical Advice PAIN [place] [address] [place] [address] Mary Arthur APRN.ELECTRONIC INSTRUMENT TRADES WORKER [address] [place], [place] [phone] Roryann marie Social History Tobacco Use Types Packs/Day Years [...] place to sleep or slept in a nursing home (including now)? No 08/10/2023 Area Deprivation Index Answer Date Reagan rded National Score (1-100), lower number is lower ri sk 63 03/05/2023 State Score (1-10), lower number is lower risk 4 03/05/2023 Data from: https://www.neighborhoodatlas.[facility]/. Last address used for calculation [address] [facility] 270 03/05/2023 Comments No Sex and Gender [...] of Assessment Author No 08/17/2023 4:25 PM EST Millicent Bernabe RN * Because of a physical, mental, [...] AM EDT Office Visit General Surgery [address] [place] [address] Michael Mora PA-C [address] [place] [address] follow up- add on ok'd by Michael 04/07/2025 1:00 PM EDT [facility] Neurological [facility] [address] [place] [address] [phone] Agatha Kim PSYD [address] [place] [address] 04/19/2025 11:00 AM EDT [facility] Neurological [facility] [address] [address] [phone] Joann Loera APRN.ELECTRONIC INSTRUMENT TRADES WORKER [address] [place] [address] Cognitive movement issues 04/21/2025 8:30 AM EDT [facility] Nutrition Therapy [address] [phone] Tiffany Banks RD [address] [place] [phone] f/u TF forula tolerance and hydration 05/29/2025 9:00 AM EDT [facility] Gastroenterology [address] [place] [address] [phone] Johanna Martinez MD [facility] [address] [place], [place] [address] 3 month follow up 06/28/2025 10:00 AM EDT [facility] Neurology Pain [address] [place] [phone] [place] [address] [place] [address] Follow up for pain documented as of this encounter Visit Diagnoses Not on filedocumented in this encounter Additional Health Concerns Infection Onset Date Last Indicated Resolved Time COVID-19 Rule-Out 01/04/2024 01/04/2024 01/04/2024 5:37 PM EDT Respiratory Rule-Out 01/04/2024 01/04/2024 024 5:37 PM EDT COVID-19 Rule-Out 04/12/2024 04/12/202404/12/2024 3:56 PM EDT COVID-19 Confirmed Comment:Anticipate 10 day isolation 04/12/2024 04/18/202404/14 8:51 PM EDT COVID-19 Rule-Out 04/18/2024 04/18/2024 04/18/2024 2:28 PM EDT COVID-19 Rule-Out 07/29/2024 07/29/2024 07/29/2024 7:20 PM EST documented as of this encounter Care Teams Packaging Engineer Relationship Specialty [place] [address] [place] [address] PCP - General Family Medicine 07/09/12 10/05/23 Shlomo Hu II, MD [address] [place] [address] PCP - General Internal Medicine 10/06/23 Jacob Sharp [address] [place] [address] Referring 04/30/[address] [place] [address] Registered Dietitian Nutrition 06/24/[address] [place] [address] Registered Dietitian Nutrition 08/27/23 Yuan Miller MD, PhD [address] [place] [address] Surgeon General Surgery 02/03/24 documented as of this encounter
--- OUTSIDE RECORDS SUMMARY | 2025-03-28 09:10 | XMS_ITS | Encounter Summary ---
Author Organization [facility] Address [facility] [place] [address] Care Team Providers Care Supervisor Waterproofing Name Role Phone Jacob Sharp Unavailable Rasheeda Newton RD Unavailable [phone] Unavailable [phone] Fritz HENDERSON MD, Shlomo Momin Primary Care Provider [phone] Yuan Miller MD, PhD Unavailable [phone] Source Comments In the event this information is protected by the Federal Confidentiality of Alcohol and Drug AbusePatient Records regulations: The Federal rules restrict any use of the information to criminally investigate or prosecute any alcohol or drug abuse patient.[facility] Encounter Details Date Type Department Care Team (Late st Contact Info) Description 01/17/2025 Patient [facility] -[address] [place], [place] [phone] Moraima Araya RPh At your next appointment, choose [facility]. Social History Tobacco Use Types Packs/Day Years Used Date Smoking Tobacco: Never Smokeless Tobacco: Never Alcohol Use Standard Drinks/Week Comments Not Currently 0 (1 standard drink = 0.6 oz pur e alcohol) [facility] Utilities Answer Date Recorded In the [...] PHQ-2 Answer Date Recorded PHQ-2 score 4 01/19/2025 Hunger Vital Sign Answer Date Recorded Within [...] in a skilled nursing (including now)? No 02/16/2024 Housing Stability Vital [...] any time in the past 12 m [facility], were you homeless or living in a skilled nursing (including now)? No 10/18/2024 Area Deprivation Index Answer Date Reagan rded National Score (1-100), lower number is lower ri sk 63 03/05/2023 State Score (1-10), lower number is lower risk 4 03/05/2023 Data from: https://www.neighborhoodatlas.[facility].edu/. Last address used for calculation [address] 270 03/05/2023 Comments No [...] AM EDT Office Visit General Surgery [address] [phone] Michael Mora PA-C [address] [place] [address] [phone] follow up- add on ok'd by Michael 04/07/2025 1:[address] [facility] Neurological [facility] [address] [phone] Agatha Kim PSYD [address] [phone] 04/19/2025 11:[address] [facility] Neurological [facility] [address] [phone] Joann Loera APRN.PRACTICE DIRECTOR [address] [place] [address] Cognitive movement issues 04/21/2025 8:[address] [facility] Nutrition Therapy [address] [place] [address] Tiffany Banks, RD [address] [phone] f/u TF forula tolerance and hydration 05/29/2025 9:[address] [facility] Gastroenterology [address] [place] [address] [phone] Johanna Martinez MD [facility] [address] [place], [place] [address] 3 month follow up 06/28/2025 10:[address] [facility] Neurology Pain [address] [place] [phone] [place] [address] [place] [address] Follow up for pain documented as of this encounter Visit Diagnoses Not on filedocumented in this encounter Care Teams Supervisor Waterproofing Relationship Specialty Start Date End Date Shlomo Hu II, MD [address] [place] [address] PCP - General Internal Medicine 10/06/23 Jacob Sharp [address] [place] [address] [phone] Referring 04/30/[address] [place] [phone] Registered Dietitian Nutrition 06/24/[address] [place] [phone] Registered Dietitian Nutrition 08/27/23 Yuan Miller MD, PhD [address] [place] [address] Surgeon General Surgery 02/03/24 documented as of this encounter
--- OUTSIDE RECORDS SUMMARY | 2025-03-28 09:10 | XMS_ITS | Encounter Summary ---
Author Organization [facility] Address [address] [facility] [place] [address] Care Team Providers Care Clinical Education Coordinator Name Role Phone Shlomo Hu MD Primary Care Provider [phone] Thursday, Toya COMMERCIAL ESCROW OFFICER Unavailable [phone] Claribel Scott RN Unavailable [phone] Marsh, Jess COMMERCIAL ESCROW OFFICER Unavailable Esthela Tesfaye SPEECH AND HEARING CLINIC DIRECTOR Unavailable Encounter Details Date Type Department Care Team (Late st Contact Info) Description 10/11/2024 Abstract [facility] [address] [facility] 110 [place] [address] Shlomo Hu MD 112 [facility] 110 [place], [place] [id number] Social History Tobacco Use Types Packs/Day Years [...] How often do you attend chur or baptism services? 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 Not on file Not on file documented as of this encounter Plan of Treatment Upcoming Encounters Date Type Department Care Team (Late st Contact Info) Description 04/12/2025 9:50 AM EDT Office Visit [facility] [address] [place] [address] Tanya Lozano MD [address] [place] [address] 04/20/2025 3:00 PM EDT Office Visit [facility] [address] [place] [address] Sonny Rodriguez DPM [address] [facility] 5 [place] [address] 05/04/2025 2:50 PM EDT Office Visit [facility] [address] [place] [address] Sonny Rodriguez DPLudmila [address] [facility] 5 [place] [address] documented as of this encounter Visit Diagnoses Not on filedocumented in this encounter Additional Health Concerns Assessment Noted Time PHQ-9 Depression Total Score: 18 024 9:42 AM EDT documented as of this encounter Care Teams Clinical Education Coordinator Relationship Specialty Start Date End Date Shlomo Hu MD [address] [place] [address] PCP - General Internal Medicine 02/15/23Thursday, DUKE Pittman [address] [place] [address] Licensed Practical Nurse Family Medicine 01/19/24 10/21/24 Claribel Scott, RN [address] [place] [address] Licensed Practical Nurse Family Medicine 10/21/24 12/06/24 Jess Marsh LPN [address] [facility] 110 [place] [address] 12/06/24 Esthela Tesfaye, KIRA [address] [place] [address] Research Computing Specialist Family Medicine 02/03/25 documented as of this encounter
--- OUTSIDE RECORDS SUMMARY | 2025-03-28 09:10 | XMS_ITS | Encounter Summary ---
Author Organization [facility] Address [address] [place] [address] Care Team Providers Care Umbrella Supervisor Name Role Phone Jacob Sharp Unavailable Rasheeda Newton RD Unavailable [phone] Unavailable [phone] Fritz HENDERSON MD, Shlomo Momin Primary Care Provider [phone] Yuan Miller MD, PhD Unavailable [phone] Source Comments In the event this information is protected by the Federal Confidentiality of Alcohol and Drug AbusePatient Records regulations: The Federal rules restrict any use of the information to criminally investigate or prosecute any alcohol or drug abuse patient.[facility] Reason for Visit * Reason Onset Date Comments Refill Request 02/09/2025 Encounter Details Date Type Department Care Team (Late st Contact Info) Description 02/09/2025 Refill PAIN [place] [address] [place] [address] Johann Echeverria MD [address] [place] [address] [place] [address] Refill Request Social History Tobacco Use Types Packs/Day Years Used Date Smoking Tobacco: Never Smokeless Tobacco: Never Alcohol Use Standard Drinks/Week Comments Not Currently 0 (1 standard drink = 0.6 oz pur e alcohol) [facility] Utilities Answer Date Recorded In the past [...] 08/10/2023 PHQ-2 Answer Date Recorded PHQ-2 score 3 02/08/2025 Hunger Vital Sign Answer Date Recorded Within [...] the past 12 m [facility], were you homeless or living in a residential (including now)? No 10/18/2024 Area Deprivation Index Answer Date Reagan rded National Score (1-100), lower number is lower ri sk 63 03/05/2023 State Score (1-10), lower number is lower risk 4 03/05/2023 Data from: https://www.neighborhoodatlas.medicine.[facility].edu/. Last address used for calculation [address] [...] Office Visit General Surgery [address] [phone] Michael Mora PA-C 9500 [place] [address] follow up- add on ok'd by Michael 04/07/2025 1:00 PM EDT [facility] Neurological Religious [address] [phone] Agatha Kim PSYD 9500 [place] [address] 04/19/2025 11:00 AM EDT [facility] Neurological Religious [address] [phone] Joann Loera, JOSE.HEALTH SAFETY ENGINEER 9500 [place] [address] Cognitive movement issues 04/21/2025 8:30 AM EDT [facility] Nutrition Therapy [address] [phone] Tiffany Banks, RD 9500 [place] [address] f/u TF forula tolerance and hydration 05/29/2025 9:00 AM EDT [facility] Gastroenterology [address] [phone] Johanna Martinez MD [facility] [address] [id number] 3 month follow up 06/28/2025 10:00 AM EDT [facility] Neurology Pain [address] [phone] [place] [address] [place] [address] Follow up for pain documented as of this encounter Visit Diagnoses Diagnosis Visceral hyperalgesia Other symptoms involving abdomen and pelvis Neuralgia and neuritis Neuralgia, neuritis, and radiculitis, unspecified Chronic pain syndrome History of Dylon-en-Y gastric bypass Bariatric surgery status Generalized abdominal pain Abdominal pain, generalized H/O gastric bypass Bariatric surgery status Pain at surgical site documented in this encounter Care Teams Umbrella Supervisor Relationship Specialty Start Date End Date Shlomo Hu II, MD 112 [facility] 110 [place] [address] PCP - General Internal Medicine 10/06/23 Jacob Sharp [address] [place] [address] Referring 04/30/[address], [place] [address] Registered Dietitian Nutrition 06/24/[address] [place] [address] Registered Dietitian Nutrition 08/27/23 Yuan Miller MD, PhD [address] [place] [address] Surgeon General Surgery 02/03/24 documented as of this encounter
--- OUTSIDE RECORDS SUMMARY | 2025-03-28 09:10 | XMS_ITS | Encounter Summary ---
Author Organization [facility] Address [address] [place] [address] Care Team Providers Care Kier Operator Name Role Phone Jacob Sharp Unavailable Rasheeda Newton RD Unavailable [phone] Unavailable [phone] Fritz HENDERSON MD, Shlomo Momin Primary Care Provider [phone] Yuan Miller MD, PhD Unavailable [phone] Source Comments In the event this information is protected by the Federal Confidentiality of Alcohol and Drug AbusePatient Records regulations: The Federal rules restrict any use of the information to criminally investigate or prosecute any alcohol or drug abuse patient.[facility] Encounter Details Date Type Department Care Team (Late st Contact Info) Description 12/28/2024 Patient Msg Gastroenterology [address] [phone] Provider, Ccf follow up on tube issues Social History Tobacco Use Types Packs/Day Years Used Date Smoking Tobacco: Never Smokeless Tobacco: Never Alcohol Use Standard Drinks/Week Comments Not Currently 0 (1 standard drink = 0.6 oz pur e alcohol) [facility] Utilities Answer Date Recorded In the [...] PHQ-2 Answer Date Recorded PHQ-2 score 4 12/26/2024 Hunger Vital Sign Answer Date Recorded Within [...] time in the past 12 m [facility], were you homeless or living in a [place] health care facility (including now)? No 10/18/2024 Area Deprivation Index Answer Date Reagan rded National Score (1-100), lower number is lower ri sk 63 03/05/2023 State Score (1-10), lower number is lower risk 4 03/05/2023 Data from: https://www.neighborhoodatlas.[facility]/. Last address used for calculation [address] 03/05/2023 Comments No [...] AM EDT Office Visit General Surgery 9300 [place] [address] Michael Mora PA-C 9500 [place] [address] follow up- add on ok'd by Michael 04/07/2025 1:00 PM EDT [facility] Neurological Religious [address] [phone] Agatha Kim PSYD [address] [phone] 04/19/2025 11:00 AM EDT [facility] Neurological Religious 9300 [place] [address] Joann Loera APRN.AUTO DAMAGE TRAINEE [address] [phone] Cognitive movement issues 04/21/2025 8:30 AM EDT [facility] Nutrition Therapy 2048 [place] [address]00 [place] [address] f/u TF forula tolerance and hydration 05/29/2025 9:00 AM T [facility] Gastroenterology 2048 [place] [address] Johanna Martinez MD [facility] [address] [place] [address] 3 month follow up 06/28/2025 10:00 AM T [facility] Neurology Pain [address] [phone] [place] [address] [address] [phone] Follow up for pain documented as of this encounter Visit Diagnoses Not on filedocumented in this encounter Care Teams Kier Operator Relationship Specialty Start Date End Date Shlomo Hu II, MD [address] [place] [address] PCP - General Internal Medicine 10/06/23 Jacob Sharp [address] [place] [address] Referring 04/30/[address] [phone] Registered Dietitian Nutrition 06/24/[address] [phone] Registered Dietitian Nutrition 08/27/23 Yuan Miller MD, PhD [address] [phone] Surgeon General Surgery 02/03/24 documented as of this encounter
--- OUTSIDE RECORDS SUMMARY | 2025-03-28 09:10 | XMS_ITS | Encounter Summary ---
Author Organization [facility] Address [address] [place] [address] Care Team Providers Care Motion Picture Operator Name Role Phone Siobhan Sharpjusto Unavailable Rasheeda Newton RD Unavailable [phone] Unavailable [phone] Fritz HENDERSON MD, Shlomo Momin Primary Care Provider [phone] Yuan Miller MD, PhD Unavailable [phone] Source Comments In the event this information is protected by the Federal Confidentiality of Alcohol and Drug AbusePatient Records regulations: The Federal rules restrict any use of the information to criminally investigate or prosecute any alcohol or drug abuse patient.[facility] Encounter Details Date Type Department Care Team (Late st Contact Info) Description 01/31/2025 Patient Msg Neurological Bahai [address] [place] [address] [facility] TonyaCOURTNEY corrigan [address] [place] [address] In home help resources Social History Tobacco Use Types Packs/Day Years Used Date Smoking Tobacco: Never Smokeless Tobacco: Never Alcohol Use Standard Drinks/Week Comments Not Currently 0 (1 standard drink = 0.6 oz pur e alcohol) [facility] Utilities Answer Date Recorded In the [...] PHQ-2 Answer Date Recorded PHQ-2 score 4 01/23/2025 Hunger Vital Sign Answer Date Recorded Within [...] slept in a correction (including now)? No 02/16/2024 Housing Stability Vital [...] time in the past 12 m [facility], were you homeless or living in a correction (including now)? No 10/18/2024 Area Deprivation Index Answer Date Reagan rded National Score (1-100), lower number is lower ri sk 63 03/05/2023 State Score (1-10), lower number is lower risk 4 03/05/2023 Data from: https://www.neighborhoodatlas.[facility]/. Last address used for calculation [address] 03/05/2023 Comments [...] AM EDT Office Visit General Surgery [address] [phone] Michael Mora PA-C [address] [place] [address] follow up- add on ok'd by Michael 04/07/2025 1:00 PM EDT [facility] Neurological Bahai [address] [phone] Agatha Kim PSYD [address] [phone] 04/19/2025 11:00 AM EDT [facility] Neurological Bahai [address] [place] [address] Joann Loera APRN.PHYSICIAN OFFICE SECRETARY [address] [phone] Cognitive movement issues 04/21/2025 8:30 AM EDT [facility] Nutrition Therapy [address] [place] [address] Tiffany Banks, RD [address] [place] [address] f/u TF forula tolerance and hydration 05/29/2025 9:00 AM EDT [facility] Gastroenterology [address] [phone] Johanna Martinez MD [facility] [address] [phone] 3 month follow up 06/28/2025 10:00 AM T [facility] Neurology Pain [address] [place] [address] [place] [address] [place] [address] Follow up for pain documented as of this encounter Visit Diagnoses Not on filedocumented in this encounter Care Teams Motion Picture Operator Relationship Specialty Start Date End Date Shlomo Hu II, MD 112 [facility] 110 [place] [address] PCP - General Internal Medicine 10/06/23 Jacob Sharp [address] [phone] Referring 04/30/[address] [place] [place] [phone] Registered Dietitian Nutrition 06/24/[address] [facility] [phone] Registered Dietitian Nutrition 08/27/23 Yuan Miller MD, PhD [facility]0 [place] [address] Surgeon General Surgery 02/03/24 documented as of this encounter
--- OUTSIDE RECORDS SUMMARY | 2025-03-28 09:10 | XMS_ITS | Encounter Summary ---
Author Organization [facility] Address [address] [place] [address] Care Team Providers Care Salvage Machine Operator Name Role Phone Jacob Sharp Unavailable Rasheeda Newton RD Unavailable [phone] Unavailable [phone] Fritz HENDERSON MD, Shlomo Momin Primary Care Provider [phone] Yuan Miller MD, PhD Unavailable [phone] Source Comments In the event this information is protected by the Federal Confidentiality of Alcohol and Drug AbusePatient Records regulations: The Federal rules restrict any use of the information to criminally investigate or prosecute any alcohol or drug abuse patient.[facility] Encounter Details Date Type Department Care Team (Late st Contact Info) Description 02/15/2025 Get Medical Advice PAIN [place] [address] [address] [place] [address] Johann Echeverria MD [address] [place] [address] [place] [address] [employer] Social History Tobacco Use Types Packs/Day Years Used Date Smoking Tobacco: Never Smokeless Tobacco: Never Alcohol Use Standard Drinks/Week Comments Not Currently 0 (1 standard drink = 0.6 oz pur e alcohol) [facility] Utilities Answer Date Recorded In the [...] slept in a assisted (including now)? No 02/16/2024 Housing Stability Vital [...] any time in the past 12 m [facility], were you homeless or living in a assisted (including now)? No 10/18/2024 Area Deprivation Index Answer Date Reagan rded National Score (1-100), lower number is lower ri sk 63 03/05/2023 State Score (1-10), lower number is lower risk 4 03/05/2023 Data from: https://www.neighborhoodatlas.medicine.[facility]/. Last address used for calculation [address] [...] AM EDT Office Visit General Surgery [address] [phone] Michael Mora PA-C [address] [place] [address] follow up- add on ok'd by Michael 04/07/2025 1:00 PM EDT [facility] Neurological Jainism [address] [place] [address] Agatha Kim PSYD [address]00 [place] [address] 04/19/2025 11:00 AM EDT [facility] Neurological Jainism [address] [phone] Joann Loera APRN.LOCAL TRUCK DRIVER [address] [phone] Cognitive movement issues 04/21/2025 8:30 AM EDT [facility] Nutrition Therapy [address] [phone] Tiffany Banks, RD 9500 [place] [address] f/u TF forula tolerance and hydration 05/29/2025 9:00 AM EDT [facility] Gastroenterology [address] [phone] Johanna Martinez MD [facility] [address] [place], [place] [phone] 3 month follow up 06/28/2025 10:00 AM EDT [facility] Neurology Pain [address] [phone] [place] [address] [place] [address] Follow up for pain documented as of this encounter Visit Diagnoses Not on filedocumented in this encounter Care Teams Salvage Machine Operator Relationship Specialty Start Date End Date Shlomo Hu II, MD [address] [facility] 110 [place] [address] PCP - General Internal Medicine 10/06/23 Jacob Sharp [address] [place] [address] Referring 04/30/[address] [place] [phone] Registered Dietitian Nutrition 06/24/[address] [place] [address] Registered Dietitian Nutrition 08/27/23 Yuan Miller MD, PhD [address]00 [place] [address] Surgeon General Surgery 02/03/24 documented as of this encounter
--- OUTSIDE RECORDS SUMMARY | 2025-03-28 09:10 | XMS_ITS | Encounter Summary ---
Author Organization [facility] Address [address] [place] [address] Care Team Providers Care Environmental Aid Name Role Phone Jacob Sharp Unavailable Rasheeda Newton RD Unavailable [phone] Unavailable [phone] Fritz HENDERSON MD, Shlomo Momin Primary Care Provider [phone] Yuan Miller MD, PhD Unavailable [phone] Source Comments In the event this information is protected by the Federal Confidentiality of Alcohol and Drug AbusePatient Records regulations: The Federal rules restrict any use of the information to criminally investigate or prosecute any alcohol or drug abuse patient.[facility] Encounter Details Date Type Department Care Team (Late st Contact Info) Description 01/03/2025 Patient Msg Gastroenterology [address] [phone] Provider, Ccf follow up on tube issue Social History Tobacco Use Types Packs/Day Years Used Date Smoking Tobacco: Never Smokeless Tobacco: Never Alcohol Use Standard Drinks/Week Comments Not Currently 0 (1 standard drink = 0.6 oz pur e alcohol) [facility] Utilities Answer Date Recorded In the past [...] in the past 12 m [facility], were you homeless or living in a skilled nursing (including now)? No 10/18/2024 Area Deprivation Index Answer Date Reagan rded National Score (1-100), lower number is lower ri sk 63 03/05/2023 State Score (1-10), lower number is lower risk 4 03/05/2023 Data from: https://www.neighborhoodatlas.[facility]/. Last address used for calculation [address] 03/05/2023 Comments [...] AM EDT Office Visit General Surgery 9300 [place] [address] Michael Mora PA-C [address]00 [place] [address] follow up- add on ok'd by Michael 04/07/2025 1:00 PM EDT [facility] Neurological Faith [address] [phone] Agatha Kim PSYD [address] [place] [phone] 04/19/2025 11:00 AM EDT [facility] Neurological Faith [address] [place] [address] Joann Loera APRN.DRILLER'S ASSISTANT [address] [phone] Cognitive movement issues 04/21/2025 8:30 AM EDT [facility] Nutrition Therapy [address] [place] [address]00 [place] [address] f/u TF forula tolerance and hydration 05/29/2025 9:00 AM T [facility] Gastroenterology [address] [place] [address] Johanna Martinez MD [facility] [address] [place] [address] 3 month follow up 06/28/2025 10:00 AM T [facility] Neurology Pain [address] [phone] [place] [address] [address] [phone] Follow up for pain documented as of this encounter Visit Diagnoses Not on filedocumented in this encounter Care Teams Environmental Aid Relationship Specialty Start Date End Date Shlomo Hu II, MD [address] [place] [address] PCP - General Internal Medicine 10/06/23 Jacob Sharp [address] [place] [address] Referring 04/30/[address] [address] [phone] Registered Dietitian Nutrition 06/24/[address] [place] [place] [phone] Registered Dietitian Nutrition 08/27/23 Yuan Miller MD, PhD [address] [phone] Surgeon General Surgery 02/03/24 documented as of this encounter
--- OUTSIDE RECORDS SUMMARY | 2025-03-28 09:10 | XMS_ITS | Encounter Summary ---
Author Organization [facility] Address [address] [place] [address] Care Team Providers Care Crimping Press Operator Name Role Phone Jacob Sharp Unavailable Rasheeda Newton RD Unavailable [phone] Unavailable [phone] Fritz HENDERSON MD, Shlomo Momin Primary Care Provider [phone] Yuan Miller MD, PhD Unavailable [phone] Source Comments In the event this information is protected by the Federal Confidentiality of Alcohol and Drug AbusePatient Records regulations: The Federal rules restrict any use of the information to criminally investigate or prosecute any alcohol or drug abuse patient.[facility] Encounter Details Date Type Department Care Team (Late st Contact Info) Description 02/15/2025 Get Medical Advice PAIN [place] [address] [place] [address] Johann Echeverria MD [address] [place] [address] [place] [address] Medication Social History Tobacco Use Types Packs/Day Years Used Date Smoking Tobacco: Never Smokeless Tobacco: Never Alcohol Use Standard Drinks/Week Comments Not Currently 0 (1 standard drink = 0.6 oz pur e alcohol) [facility] Utilities Answer Date Recorded In [...] any time in the past 12 m [facility], were you homeless or living in a [place] health care facility (including now)? No 10/18/2024 Area Deprivation Index Answer Date Reagan rded National Score (1-100), lower number is lower ri sk 63 03/05/2023 State Score (1-10), lower number is lower risk 4 03/05/2023 Data from: https://www.neighborhoodatlas.medicine.[facility]/. Last address used for calculation [address] [address] 03/05/2023 Comments No [...] Office Visit General Surgery [address] [id number] Michael Mora PA-C [address] [phone] follow up- add on ok'd by Michael 04/07/2025 1:00 PM EDT [facility] Neurological Adventist [address] [phone] Agatha Kim PSYD [address] [id number] 04/19/2025 11:00 AM EDT [facility] Neurological Adventist [address] [phone] Joann Loera APRN.THICKENER OPERATOR [address] [id number] Cognitive movement issues 04/21/2025 8:30 AM EDT [facility] Nutrition Therapy [address] [place] [address] [phone] Tiffany Banks, RD [address] [phone] f/u TF forula tolerance and hydration 05/29/2025 9:00 AM EDT [facility] Gastroenterology [address] [phone] Johanna Martinez MD [facility] [address] [place], [place] 5609[address] 3 month follow up 06/28/2025 10:00 AM EDT [facility] Neurology Pain [address] [phone] [place] [address] [address] [id number] Follow up for pain documented as of this encounter Visit Diagnoses Not on filedocumented in this encounter Care Teams Crimping Press Operator Relationship Specialty Start Date End Date Shlomo Hu II, MD [address] [place] [address] PCP - General Internal Medicine 10/06/23 Jacob Sharp [address] [phone] Referring 04/30/[address] [place] [phone] Registered Dietitian Nutrition 06/24/[address]507 [place] [address] Registered Dietitian Nutrition 08/27/23 Yuan Miller MD, PhD 9506 [place] [address] Surgeon General Surgery 02/03/24 documented as of this encounter
--- OUTSIDE RECORDS SUMMARY | 2025-03-28 09:10 | XMS_ITS | Encounter Summary ---
Author Organization [facility] Address [address] [place] [address] Care Team Providers Care Nursing Service Director Name Role Phone Jacob Sharp Unavailable Rasheeda Newton RD Unavailable [phone] Unavailable [phone] Fritz HENDERSON MD, Shlomo Momin Primary Care Provider [phone] Yuan Miller MD, PhD Unavailable [phone] Source Comments In the event this information is protected by the Federal Confidentiality of Alcohol and Drug AbusePatient Records regulations: The Federal rules restrict any use of the information to criminally investigate or prosecute any alcohol or drug abuse patient.[facility] Encounter Details Date Type Department Care Team (Late st Contact Info) Description 10/21/2023 Patient Msg Gastroenterology [address] [phone] Provider, Ccf Vitamin D level Social History Tobacco Use Types Packs/Day Years [...] in a group home (including now)? No 08/10/2023 Area Deprivation Index Answer Date Reagan rded National Score (1-100), lower number is lower ri sk 63 03/05/2023 State Score (1-10), lower number is lower risk 4 03/05/2023 Data from: https://www.neighborhoodatlas.medicine.[facility].edu/. Last address used for calculation [address] [...] AM EDT Office Visit General Surgery 9300 [place] [address] Michael Mora PA-C 9500 [place] [address] follow up- add on ok'd by Michael 04/07/2025 1:00 PM EDT [facility] [address] [phone] Agatha Kim PSYD [address] [phone] 04/19/2025 11:00 AM EDT [facility] Neurological Sikhism [address] [phone] Joann Loera APRN.MECHANICAL ASSEMBLY 9500 [place] [address] Cognitive movement issues 04/21/2025 8:30 AM EDT [facility] Nutrition Therapy [address] [phone] Tiffany Banks, RD [address] [phone] f/u TF forula tolerance and hydration 05/29/2025 9:00 AM EDT [facility] Gastroenterology [address] [address] Johanna Martinez MD [facility] [address] [place], [place] [phone] 3 month follow up 06/28/2025 10:00 AM EDT [facility] Neurology Pain [address] [phone] [place] [address] [place] [address] Follow up for pain documented as of [...] documented as of this encounter Care Teams Nursing Service Director Relationship Specialty Start Date End Date Shlomo Hu II, MD [address] [place] [address] PCP - General Internal Medicine 10/06/23 Jacob Sharp [address] [place] [address] Referring 04/30/[address] [place] [address] Registered Dietitian Nutrition 06/24/[address]508 [place] [address] Registered Dietitian Nutrition 08/27/23 Yuan Miller MD, PhD 9501 [place] [address] Surgeon General Surgery 02/03/24 documented as of this encounter
--- OUTSIDE RECORDS SUMMARY | 2025-03-28 09:10 | XMS_ITS | Encounter Summary ---
Author Organization [facility] Address [facility] [place] [address] Care Team Providers Care Knitting Machine Fixer Name Role Phone Jacob Sharp Unavailable Rasheeda Newton RD Unavailable [phone] Unavailable [phone] Fritz HENDERSON MD, Shlomo Momin Primary Care Provider [phone] Yuan Miller MD, PhD Unavailable [phone] Source Comments In the event this information is protected by the Federal Confidentiality of Alcohol and Drug AbusePatient Records regulations: The Federal rules restrict any use of the information to criminally investigate or prosecute any alcohol or drug abuse patient.[facility] Encounter Details Date Type Department Care Team (Late st Contact Info) Description 11/16/2023 Get Medical Advice Gastroenterology [address] [address] Magaly Andrade MD 9500 [place] [address] Tests Social History Tobacco Use Types Packs/Day Years [...] slept in a alf (including now)? No 08/10/2023 Area Deprivation Index Answer Date Reagan rded National Score (1-100), lower number is lower ri sk 63 03/05/2023 State Score (1-10), lower number is lower risk 4 03/05/2023 Data from: https://www.neighborhoodatlas.medicine.[facility].edu/. Last address used for calculation [address] 270 03/05/2023 Comments No Sex and [...] AM EDT Office Visit General Surgery 9300 [place] [address] Michael Mora PA-C 9500 [place] [address] follow up- add on ok'd by Michael 04/07/2025 1:00 PM EDT [facility] [address] [phone] Agatha Kim PSYD 9500 [place] [address] 04/19/2025 11:00 AM EDT [facility] Neurological Church 9300 [place] [address] Joann Loera APRN.BOTTOM POUNDER CEMENT SHOES 9500 [place] [address] Cognitive movement issues 04/21/2025 8:30 AM EDT [facility] Nutrition Therapy [address] [phone] Tiffany Banks, RD [address] [address] [phone] f/u TF forula tolerance and hydration 05/29/2025 9:00 AM EDT [facility] Gastroenterology [address] [phone] Johanna Martinez MD [facility] [address] [place], [place] 1260106 3 month follow up 06/28/2025 10:00 AM EDT [facility] Neurology Pain 17[address] [place] [address] [place] [address] [place] [address] Follow up for pain documented as of [...] documented as of this encounter Care Teams Knitting Machine Fixer Relationship Specialty Start Date End Date Shlomo Hu II, MD [address] [place] [address] PCP - General Internal Medicine 10/06/23 Jacob Sharp [address] [place] [address] Referring 04/30/[address] [place] [address] Registered Dietitian Nutrition 06/24/[address] [place] [address] Registered Dietitian Nutrition 08/27/23 Yuan Miller MD, PhD 9509 [place] [address] Surgeon General Surgery 02/03/24 documented as of this encounter
--- OUTSIDE RECORDS SUMMARY | 2025-03-28 09:10 | XMS_ITS | Encounter Summary ---
Author Organization [facility] Address [address] [place] [address] Care Team Providers Care Pick Up Truck Driver Name Role Phone Sean Ruiz DO Primary Care Provider [phone] Jacob Sharp Unavailable Rasheeda Newton RD Unavailable [phone] Unavailable [phone] Fritz HENDERSON MD, Shlomo Momin Primary Care Provider [phone] Yuan Miller MD, PhD Unavailable [phone] Source Comments In the event this information is protected by the Federal Confidentiality of Alcohol and Drug AbusePatient Records regulations: The Federal rules restrict any use of the information to criminally investigate or prosecute any alcohol or drug abuse patient.[facility] Encounter Details Date Type Department Care Team (Late st Contact Info) Description 09/29/2023 Patient Msg Gastroenterology [address] [phone] Provider, Ccf APPOINTMENT CANCELLED Social History Tobacco Use Types Packs/Day Years [...] in a senior living (including now)? No 08/10/2023 Area Deprivation Index Answer Date Reagan rded National Score (1-100), lower number is lower ri sk 63 03/05/2023 State Score (1-10), lower number is lower risk 4 03/05/2023 Data from: https://www.neighborhoodatlas.medicine.[facility].edu/. Last address used for calculation [address] [...] EDT Office Visit General Surgery 9[address] [place] [address] Michael Mora PA-C 9046 [place], [place] [phone] follow up- add on ok'd by Michael 04/07/2025 1:00 PM EDT [facility] [address] [phone] Agatha Kim PSYD [address] [phone] 04/19/2025 11:00 AM EDT [facility] Neurological Congregation [address] [phone] Joann Loera APRN.PARKING ASSISTANT [address] [phone] Cognitive movement issues 04/21/2025 8:30 AM EDT [facility] Nutrition Therapy [address] [phone] Tiffany Banks, RD [address] [phone] f/u TF forula tolerance and hydration 05/29/2025 9:00 AM EDT [facility] Gastroenterology [address] [phone] Johanna Martinez MD [facility] [address] [place], [place] 9300406 3 month follow up 06/28/2025 10:00 AM EDT [facility] Neurology Pain [address] [phone] [place] [address] [address] [phone] Follow up for pain documented as of [...] documented as of this encounter Care Teams Pick Up Truck Driver Relationship Specialty [place] [address] [place] [address] PCP - General Family Medicine 07/09/12 10/05/23 Shlomo Hu II, MD [address] [facility] 110 [place] [address] PCP - General Internal Medicine 10/06/23 Jacob Sharp [address] [place] [address] Referring 04/30/[address], [place] [address] Registered Dietitian Nutrition 06/24/[address] [facility] [place] [address] Registered Dietitian Nutrition 08/27/23 Yuan Miller MD, PhD [address] [place] [address] Surgeon General Surgery 02/03/24 documented as of this encounter
--- OUTSIDE RECORDS SUMMARY | 2025-03-28 09:10 | XMS_ITS | Encounter Summary ---
Author Organization [facility] Address [address] [facility] [place] [address] Care Team Providers Care Rfid Systems Engineer Name Role Phone Shlomo Hu MD Primary Care Provider [phone] Thursday, Toya COOK HELPER VEGETABLE Unavailable [phone] Claribel Scott RN Unavailable Marsh, Jess COOK HELPER VEGETABLE Unavailable Esthela Tesfaye WINE MAKER Unavailable [phone] Encounter Details Date Type Department Care Team (Late st Contact Info) Description 10/07/2024 Abstract [facility] 112 [facility] 110 [place] [address] Shlomo Hu MD 112 [facility] 110 [place], [place] [phone] Social History Tobacco Use Types Packs/Day Years [...] How often do you attend chur or scientologist services? 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 Not on file Not on file documented as of this encounter Plan of Treatment Upcoming Encounters Date Type Department Care Team (Late st Contact Info) Description 04/12/2025 9:50 AM EDT Office Visit [facility] ENDOCRINOLOG[facility] [address] [place] [address] Tanya Lozano MD [address] [place] [address] 04/20/2025 3:00 PM EDT Office Visit [facility] PODIAT[facility] [address] [place] [address] Sonny Rodriguez DPM 3[address] [facility] 5 [place] [address] 05/04/2025 2:50 PM EDT Office Visit [facility] POD[facility] [address] [place] [address] Sonny Rodriguez DPLudmila 3006 [facility] 5 [place] [address] documented as of this encounter Visit Diagnoses Not on filedocumented in this encounter Additional Health Concerns Assessment Noted Time PHQ-9 Depression Total Score: 18 024 9:42 AM EDT documented as of this encounter Care Teams Rfid Systems Engineer Relationship Specialty Start Date End Date Shlomo Hu MD [address] [place] [place] [address] PCP - General Internal Medicine 02/15/23Thursday, DUKE Pittman [address] [place] [address] Licensed Practical Nurse Family Medicine 01/19/24 10/21/24 Claribel [place], RN [address] [place] [address] Licensed Practical Nurse Family Medicine 10/21/24 12/06/24 Jess Marsh LPN [address] [facility] 110 [place] [address] 12/06/24 Esthela Tesfaye, KIRA [address] [place] [address] Attendant Sales Family Medicine 02/03/25 documented as of this encounter
--- OUTSIDE RECORDS SUMMARY | 2025-03-28 09:10 | XMS_ITS | Encounter Summary ---
Author Organization [facility] Address [address] [place] [address] Care Team Providers Care Technical Fellow Name Role Phone Sean Ruiz DO Primary Care Provider [phone] Jacob Sharp Unavailable Rasheeda Newton RD Unavailable [phone] Unavailable [phone] Fritz HENDERSON MD, Shlomo B Primary Care Provider [phone] Yuan Miller MD, PhD Unavailable [phone] Source Comments In the event this information is protected by the Federal Confidentiality of Alcohol and Drug AbusePatient Records regulations: The Federal rules restrict any use of the information to criminally investigate or prosecute any alcohol or drug abuse patient.[facility] Encounter Details Date Type Department Care Team (Late st Contact Info) Description 09/17/2023 Get Medical Advice Gastroenterology [address] [phone] Johanna Martinez MD [facility] [address] [address] Nausea, vomiting and diarrhea Social History Tobacco Use Types Packs/Day Years [...] 08/10/2023 PHQ-2 Answer Date Recorded PHQ-2 score 1 09/20/2022 Hunger Vital Sign Answer Date Recorded Within [...] slept in a chcf (including now)? No 08/10/2023 Area Deprivation Index Answer Date Reagan rded National Score (1-100), lower number is lower ri sk 63 03/05/2023 State Score (1-10), lower number is lower risk 4 03/05/2023 Data from: https://www.neighborhoodatlas.[facility]/. Last address used for calculation [address] [address] 03/05/2023 Comments No Sex and Gender Information [...] of Assessment Author No 08/17/2023 4:25 PM Jason Madrigal RN * Are you blind or [...] AM EDT Office Visit General Surgery [address] [phone] Michael Mora PA-C 9500 [place] [address] follow up- add on ok'd by Michael 04/07/2025 1:00 PM EDT [facility] [place] 9300 [place] [address] Agatha Kim PSYD 9500 [place] [address] 04/19/2025 11:00 AM EDT [facility] Neurological Latter Day 9300 [place] [address] Joann Loera APRN.ACTUARY 9500 [place] [address] Cognitive movement issues 04/21/2025 8:30 AM EDT [facility] Nutrition Therapy [address] [place] [phone] Tiffany Bansk, RD 9500 [place] [address] f/u TF forula tolerance and hydration 05/29/2025 9:00 AM EDT [facility] Gastroenterology [address] [phone] Johanna Martinez MD [facility] [address] [place], [place] [address] 3 month follow up 06/28/2025 10:00 AM T [facility] Neurology Pain [address] [place] [phone] [place] [address] [place] [address] Follow up for pain documented as of [...] documented as of this encounter Care Teams Technical Fellow Relationship Specialty [place] [address] [place] [address] PCP - General Family Medicine 07/09/12 10/05/23 Shlomo Hu II, MD [address] [place] [address] [place] [address] PCP - General Internal Medicine 10/06/23 Jacob Sharp [address] [place] [address] Referring 04/30/[address], [place] [address] Registered Dietitian Nutrition 06/24/[address]00 [place], [place] [phone] Registered Dietitian Nutrition 08/27/23 Yuan Miller MD, PhD 9500 [place] [address] Surgeon General Surgery 02/03/24 documented as of this encounter
--- OUTSIDE RECORDS SUMMARY | 2025-03-28 09:10 | XMS_ITS | Encounter Summary ---
Author Organization [facility] Address [address] [place] [address] Care Team Providers Care Bottle Capper Name Role Phone Jacob Sharp Unavailable Rasheeda Newton RD Unavailable [phone] Unavailable [phone] Fritz HENDERSON MD, Shlomo Momin Primary Care Provider [phone] Yuan Miller MD, PhD Unavailable [phone] Source Comments In the event this information is protected by the Federal Confidentiality of Alcohol and Drug AbusePatient Records regulations: The Federal rules restrict any use of the information to criminally investigate or prosecute any alcohol or drug abuse patient.[facility] Encounter Details Date Type Department Care Team (Late st Contact Info) Description 01/04/2025 Patient Msg Gastroenterology [address] [phone] Provider, Ccf medication approval Social History Tobacco Use Types Packs/Day Years Used Date Smoking Tobacco: Never Smokeless Tobacco: Never Alcohol Use Standard Drinks/Week Comments Not Currently 0 (1 standard drink = 0.6 oz pur e alcohol) [facility] Utilities Answer Date Recorded In the past 12 months has th e [employer], gas, oil, or water company threatened to [...] slept in a prison (including now)? No 02/16/2024 Housing Stability Vital [...] any time in the past 12 m [facility], were you homeless or living in a prison (including now)? No 10/18/2024 Area Deprivation Index Answer Date Reagan rded National Score (1-100), lower number is lower ri sk 63 03/05/2023 State Score (1-10), lower number is lower risk 4 03/05/2023 Data from: https://www.neighborhoodatlas.medicine.[facility]/. Last address used for calculation [address] 270 03/05/2023 Comments No Sex and [...] AM EDT Office Visit General Surgery 9300 [place] [address] Michael Mora PA-C 9500 [place] [address] follow up- add on ok'd by Michael 04/07/2025 1:00 PM EDT [facility] Neurological Denominational [address] [place] [address] Agatha Kim PSYD 9500 [place] [address] 04/19/2025 11:00 AM EDT [facility] Neurological Denominational [address] [place] [address] Joann Loera APRN.CRITICAL CARE PARAMEDIC 9500 [place] [address] Cognitive movement issues 04/21/2025 8:30 AM T [facility] Nutrition Therapy [address]48 [place] [address] Tiffany Banks, RD 9500 [place] [address] f/u TF forula tolerance and hydration 05/29/2025 9:00 AM T [facility] Gastroenterology 2048 [place] [address] Johanna Martinez MD [facility] [address] [place] [address] 3 month follow up 06/28/2025 10:00 AM T [facility] Neurology Pain [address] [place] 1476406 [place] [address] [address] [phone] Follow up for pain documented as of this encounter Visit Diagnoses Not on filedocumented in this encounter Care Teams Bottle Capper Relationship Specialty Start Date End Date Shlomo Hu II, MD [address] [place] [address] PCP - General Internal Medicine 10/06/23 Jacob Sharp [address] [place] [address] Referring 04/30/[address] [phone] Registered Dietitian Nutrition 06/24/[address] [place] [phone] Registered Dietitian Nutrition 08/27/23 Yuan Miller MD, PhD [address] [place] [phone] Surgeon General Surgery 02/03/24 documented as of this encounter
--- OUTSIDE RECORDS SUMMARY | 2025-03-28 09:10 | XMS_ITS | Encounter Summary ---
Author Organization [facility] Address [address] [place] [address] Care Team Providers Care Roll Filler Name Role Phone Sean Ruiz DO Primary Care Provider [phone] Jacob Sharp Unavailable Rasheeda Newton RD Unavailable [phone] Unavailable [phone] Fritz HENDERSON MD, Shlomo B Primary Care Provider [phone] Yuan Miller MD, PhD Unavailable [phone] Source Comments In the event this information is protected by the Federal Confidentiality of Alcohol and Drug AbusePatient Records regulations: The Federal rules restrict any use of the information to criminally investigate or prosecute any alcohol or drug abuse patient.[facility] Encounter Details Date Type Department Care Team (Late st Contact Info) Description 09/17/2023 Get Medical Advice Gastroenterology [address] [id number] Johanna Martinez MD [facility] [address] [address] Appointment Social History Tobacco Use Types Packs/Day [...] slept in a correction (including now)? No 08/10/2023 Area Deprivation Index Answer Date Reagan rded National Score (1-100), lower number is lower ri sk 63 03/05/2023 State Score (1-10), lower number is lower risk 4 03/05/2023 Data from: https://www.neighborhoodatlas.medicine.[facility]/. Last address used for calculation [address] [address] 03/05/2023 Comments No Sex and Gender Information [...] AM EDT Office Visit General Surgery [address] [phone] Michael Mora PA-C 9500 [place] [address] follow up- add on ok'd by Michael 04/07/2025 1:00 PM EDT [facility] Rastafarian 9300 [place] [address] Agatha Kim, DILAN 9500 [place] [address] 04/19/2025 11:00 AM EDT [facility] Neurological Rastafarian [address] [place] [address] Joann Loera APRN.LEASE OPERATOR 9500 [place] [address] Cognitive movement issues 04/21/2025 8:30 AM EDT [facility] Nutrition Therapy [address] [phone] Tiffany Banks, RD [address] [id number] f/u TF forula tolerance and hydration 05/29/2025 9:00 AM EDT [facility] Gastroenterology [address] [phone] Johanna Martinez MD [facility] [address] [place], [place] [id number] 3 month follow up 06/28/2025 10:00 AM EDT [facility] Neurology Pain [address] [place] [address] [place] [address] [phone] Follow up for pain documented as of [...] documented as of this encounter Care Teams Roll Filler Relationship Specialty [place] [address] [place] [address] PCP - General Family Medicine 07/09/12 10/05/23 Shlomo Hu II, MD 112 [facility] 110 [place] [address] PCP - General Internal Medicine 10/06/23 Jacob Sharp [address] [place] [address] Referring 04/30/[address] [phone] Registered Dietitian Nutrition 06/24/[address] [id number] Registered Dietitian Nutrition 08/27/23 Yuan Miller MD, PhD 9500 [place], [place] [phone] Surgeon General Surgery 02/03/24 documented as of this encounter
--- OUTSIDE RECORDS SUMMARY | 2025-03-28 09:10 | XMS_ITS | Encounter Summary ---
Author Organization [facility] Address [address] [place] [address] Care Team Providers Care Master Fisher Name Role Phone Jacob Sharp Unavailable Rasheeda Newton RD Unavailable [phone] Unavailable [phone] Fritz HENDERSON MD, Shlomo Momin Primary Care Provider [phone] Yuan Miller MD, PhD Unavailable [phone] Source Comments In the event this information is protected by the Federal Confidentiality of Alcohol and Drug AbusePatient Records regulations: The Federal rules restrict any use of the information to criminally investigate or prosecute any alcohol or drug abuse patient.[facility] Encounter Details Date Type Department Care Team (Late st Contact Info) Description 11/04/2023 Get Medical Advice Gastroenterology [address] [phone] Johanna Martinez MD [facility] [address] [address] test Social History Tobacco Use Types Packs/Day Years [...] lower risk 4 03/05/2023 Data from: https://www.neighborhoodatlas.medicine.[facility].edu/. Last address used for calculation [address] [...] AM EDT Office Visit General Surgery 9300 [place] [address] Michael oMra PA-C 9500 [place] [address] follow up- add on ok'd by Michael 04/07/2025 1:00 PM EDT [facility] 9300 [place] [address] Agatha Kim PSYD 9500 [place] [address] 04/19/2025 11:00 AM EDT [facility] Neurological Voodoo [address] [place] [address] Joann Loera APRN.SOLID WASTE MANAGER 9500 [place] [address] Cognitive movement issues 04/21/2025 8:30 AM EDT [facility] Nutrition Therapy [address] [phone] Tiffany Banks, RD [address] [phone] f/u TF forula tolerance and hydration 05/29/2025 9:00 AM EDT [facility] Gastroenterology [address] [phone] Johanna Martinez MD [facility] [address] [place], [place] [address] 3 month follow up 06/28/2025 10:00 AM EDT [facility] Neurology Pain [address] [place] [address] [place] [address] [place] [address] Follow up for pain documented as of this encounter Visit Diagnoses Not on filedocumented in this encounter Additional Health Concerns Infection Onset Date Last Indicated Resolved Time COVID-19 Rule-Out 01/04/2024 01/04/2024 01/04/2024 5:37 PM EDT Respiratory Rule-Out 01/04/2024 01/04/2024 024 5:37 PM EDT COVID-19 Rule-Out 04/12/2024 04/12/2024 04/12/2024 3:56 PM EDT COVID-19 Confirmed Comment:Anticipate 10 day isolation 04/12/2024 04/18/202404/14 01/2024 8:51 PM EDT COVID-19 Rule-Out 04/18/2024 04/18/2024 04/18/2024 2:28 PM EDT COVID-19 Rule-Out 07/29/2024 07/29/2024 07/29/2024 7:20 PM EST documented as of this encounter Care Teams Master Fisher Relationship Specialty Start Date End Date Shlomo Hu II, MD [address] [facility] 110 [place] [address] PCP - General Internal Medicine 10/06/23 Jacob Sharp [address] [place] [address] Referring 04/30/[address] [phone] Registered Dietitian Nutrition 06/24/[address] [place] [address] Registered Dietitian Nutrition 08/27/23 Yuan Miller MD, PhD 0147 [place] [address] Surgeon General Surgery 02/03/24 documented as of this encounter
--- OUTSIDE RECORDS SUMMARY | 2025-03-28 09:10 | XMS_ITS | Encounter Summary ---
Author Organization [facility] Address [address] [place] [address] Care Team Providers Care Room Service Food Service Attendant Name Role Phone Jacob Sharp Unavailable Rasheeda Newton RD Unavailable [phone] Unavailable [phone] Fritz HENDERSON MD, Shlomo Momin Primary Care Provider [phone] Yuan Miller MD, PhD Unavailable [phone] Source Comments In the event this information is protected by the Federal Confidentiality of Alcohol and Drug AbusePatient Records regulations: The Federal rules restrict any use of the information to criminally investigate or prosecute any alcohol or drug abuse patient.[facility] Encounter Details Date Type Department Care Team (Late st Contact Info) Description 11/10/2023 Get Medical Advice General Surgery 9300 [place] [address] Mark Cruz MD [address]01 [place] [address] CAT Scan Requested Social History Tobacco Use Types Packs/Day Years [...] is lower risk 4 03/05/2023 Data from: https://www.neighborhoodatlas.medicine.[facility].edu/. Last address used for calculation [address] [...] AM EDT Office Visit General Surgery 9300 [place] [address] Michael Mora PA-C 6643 [place] [address] follow up- add on ok'd by Michael 04/07/2025 1:00 PM EDT [facility] [address] [phone] Agatha Kim PSYD 9500 [place] [address] 04/19/2025 11:00 AM EDT [facility] Neurological Congregation [address] [place] [address] Joann Loera APRN.SUPPLY CHAIN SYSTEMS MANAGER 9500 [place] [address] Cognitive movement issues 04/21/2025 8:30 AM EDT [facility] Nutrition Therapy [address] [phone] Tiffany Banks, RD [address] 2109295 f/u TF forula tolerance and hydration 05/29/2025 9:00 AM EDT [facility] Gastroenterology [address] [phone] Johanna Martinez MD [facility] [address] [place], [place] [address] 3 month follow up 06/28/2025 10:00 AM EDT [facility] Neurology Pain [address] [place] [address] [place] [address] [place] [address] Follow up for pain documented as of [...] documented as of this encounter Care Teams Room Service Food Service Attendant Relationship Specialty Start Date End Date Shlomo Hu II, MD [address] [facility] 110 [place] [address] PCP - General Internal Medicine 10/06/23 Jacob Sharp [address] [place] [address] Referring 04/30/[address] [phone] Registered Dietitian Nutrition 06/24/[address] [place] [address] Registered Dietitian Nutrition 08/27/23 Yuan Miller MD, PhD [facility]5 [place] [address] Surgeon General Surgery 02/03/24 documented as of this encounter
--- OUTSIDE RECORDS SUMMARY | 2025-03-28 09:10 | XMS_ITS | Encounter Summary ---
Author Organization [facility] Address [address] [place] [address] Care Team Providers Care Shareholder Name Role Phone Shlomo Hu MD Primary Care Provider [phone] Thursday, Toya MANUFACTURING JOB TITLES Unavailable [phone] Claribel Scott RN Unavailable [phone] Marsh, Jess MANUFACTURING JOB TITLES Unavailable Esthela Tesfaye [employer] ARTISTIC DIRECTOR Unavailable [phone] Encounter Details Date Type Department Care Team (Late st Contact Info) Description 10/05/2024 Clinisync Result Encounter [facility] External Department Unsolicited Rommel Remy, LIAISON ENGINEER [address] [place] [address] [place] [address] Social History Tobacco Use Types [...] often do you attend chur ch or congregational services? Never 04/18/2024 Do you belong to any clubs o r organizations such as orthodox groups, unions, fraternal or athletic groups, or [...] Recorded Patient Health Questionnaire-2 Score 2 09/19/2024 [facility] Occupat ional [facility] - [...] slept in a usp (including now)? No 03/01/2023 Housing Stability Vital [...] any time in the past 12 m [facility], were you homeless or living in a usp (including now)? 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 Not on file Not on file documented as of this encounter Plan of Treatment Upcoming Encounters Date Type Department Care Team (Late st Contact Info) Description 04/12/2025 9:50 AM EDT Office Visit [facility] [address] [place] [address] Tanya Lozano MD [address] [place] [address] 04/20/2025 3:00 PM EDT Office Visit [facility] P[facility]AT[facility] [address] [place] [address] [place] [phone] Sonny Rodriguez DPM 3005 [facility] 5 [place] [address] 05/04/2025 2:50 PM EDT Office Visit [facility] [address] [facility] 120 [place] [address] Sonny Rodriguez DPLudmila 3006 [facility] 5 [place] [address] documented as of this encounter Procedures Procedure Name Priority Date/Time Associated Diagnosis Comments XR FOOT LT MIN 3V 10/05/2024 12: 02 AM EST documented in this encounter Results * XR FOOT LT MIN 3V (10/05/2024 12:02 AM EST) Anatomical Region Laterality Modality Other 10/05/2024 12:0 2 AM EST Narrative 10/05/2024 12:04 AM EST The [address] [address] XRay Report Signed Patient: MELINA TAVERAS MR#: [id number] : 1975 Acct:[id number] Age/Sex: 49 / F ADM Date: 10/04/24 Loc: RAD Attending Dr: ROMMEL REMY Ordering Physician: ROMMEL REMY Date of Service: 10/04/24 Procedure(s): XR foot LT min 3V Accession Number(s): [id number] cc: SHLOMO HU ; ROMMEL REMY [address] [address] Patient Name: MELINA TAVERAS MRN: [id number] date: 1975 Sex: F Assigned Patient Location: [facility] Current Patient Location: [facility] Accession/Order Number: [id number] Exam Date: 10/04/2024 11:00 Report Date: 10/05/2024 00:02 At the request of: ROMMEL REMY Procedure: XR foot LT min 3V EXAM: XR Left Foot Complete, 3 or More Views CLINICAL INDICATION: Pain Of Toe Of Left Foot, Fall TECHNIQUE: Frontal, lateral and oblique views of the left foot. COMPARISON: No relevant prior studies available. FINDINGS: BONES/JOINTS: Unremarkable. No acute fracture. No dislocation. SOFT TISSUES: Soft tissue swelling is seen. No radiopaque foreign body. Plantar spurring is seen. XR/XR foot LT min 3V IMPRESSION: Soft tissue swelling is seen. No acute fracture. Electronically authenticated by: GISSELLE MEIER Date: 10/05/2024 00:02 Dictated By: Gisselle Meier M.A. Signed By: 10/05/24 0004 DD/ 0002 TD/TT: Burling And Joining Supervisor: Procedure Note Radiology, Radiologist, MD - 10/05/2024 [place] [address] XRay Report Signed Patient: MELINA TAVERAS LMR#: [id number] : 1975Acct:[id number] Age/Sex: 49 / FADM Date: 10/04/24 Loc: [facility] Attending Dr: ROMMEL REMY Ordering Physician: ROMMEL REMY Date of Service: 10/04/24 Procedure(s): XR foot LT min 3V Accession Number(s): [id number] cc: SHLOMO HU ; ROMMEL REMY [address] [address] Patient Name: MELINA TAVERAS MRN: [id number] date: 1975 Sex: F Assigned Patient Location: [facility] Current Patient Location: RAD Accession/Order Number: [id number] Exam Date: 10/04/2024 11:00 Report Date: 10/05/2024 00:02 At the request of: ROMMEL REMY Procedure: XR foot LT min 3V EXAM: XR Left Foot Complete, 3 or More Views CLINICAL INDICATION: Pain Of Toe Of Left Foot, Fall TECHNIQUE: Frontal, lateral and oblique views of the left foot. COMPARISON: No relevant prior studies available. FINDINGS: BONES/JOINTS: Unremarkable. No acute fracture. No dislocation. SOFT TISSUES: Soft tissue swelling is seen. No radiopaque foreign body. Plantar spurring is seen. XR/XR foot LT min 3V IMPRESSION: Soft tissue swelling is seen. No acute fracture. Electronically authenticated by: GISSELLE MEIER Date: 10/05/2024 00:02 Dictated By: Gisselle Meier M.A. Signed By:10/05/24 0004 DD/ 0002 TD/TT: Burling And Joining Supervisor: us Rommel Remy LIAISON ENGINEER [facility] Final Resu lt documented in this encounter Visit Diagnoses Not on filedocumented in this encounter Additional Health Concerns Assessment Noted Time PHQ-9 Depression Total Score: 18 024 9:42 AM EDT documented as of this encounter Care Teams Shareholder Relationship Specialty Start Date End Date Shlomo Hu MD 112 [facility] 110 [place] [address] PCP - General Internal Medicine 02/15/23ThursdayToya LPN [address] [facility] 110 [place] [address] Licensed Practical Nurse Family Medicine 01/19/24 10/21/24 Claribel Scott RN [address] [place] [address] Licensed Practical Nurse Family Medicine 10/21/24 12/06/24 Jess Marsh LPN 112 [facility] 110 [place] [address] 12/06/24 Esthela Tesfaye, KIRA [address] [place] [address] Radiographic Technologist Family Medicine 02/03/25 documented as of this encounter
--- OUTSIDE RECORDS SUMMARY | 2025-03-28 09:10 | XMS_ITS | Encounter Summary ---
Author Organization [facility] Address [address] [facility] [place] [address] Care Team Providers Care Watch Commander Name Role Phone Shlomo Hu MD Primary Care Provider [phone] Claribel Scott RN Unavailable [phone] Jess Marsh CROCHETER HAND Unavailable Esthela Tesfaye CORPORATE HUMAN RESOURCES MANAGER Unavailable [phone] Encounter Details Date Type Department Care Team (Late st Contact Info) Description 11/17/2024 Abstract [facility] FM [address] [facility] 110 [place] [address] Shlomo Hu MD 112 [facility] 110 [place] [address] Social History Tobacco Use Types [...] any clubs o r organizations such as confucianist groups, unions, fraternal or athletic groups, or [...] Recorded Patient Health Questionnaire-2 Score 0 11/10/2024 [facility] of Occupat ional Health - [...] slept in a mcfp (including now)? No 03/01/2023 Housing Stability Vital [...] in the past 12 m [facility], were you homeless or living in a mcfp (including now)? 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 Not on file Not on file documented as of this encounter Plan of Treatment Upcoming Encounters Date Type Department Care Team (Late st Contact Info) Description 04/12/2025 9:50 AM EDT Office Visit [facility] [address] [place] [address] Tanya Lozano MD [address] [place] [address] 04/20/2025 3:00 PM EDT Office Visit [facility] [address] [facility] 120 [place] [address] Sonny Rodriguez DPLudmila 3006 [facility] 5 [place] [address] 05/04/2025 2:50 PM EDT Office Visit [facility] [address] [facility] 120 [place] [address] Sonny Rodriguez DPLudmila [address] [address] documented as of this encounter Visit Diagnoses Not on filedocumented in this encounter Additional Health Concerns Assessment Noted Time PHQ-9 Depression Total Score: 18 024 9:42 AM EDT documented as of this encounter Care Teams Watch Commander Relationship Specialty Start Date End Date Shlomo Hu MD [address] [facility] 110 [place] [address] PCP - General Internal Medicine 02/15/23 Claribel Scott, RN [address] [place] [address] Licensed Practical Nurse Family Medicine 10/21/24 12/06/24 Jess Marsh LPN [address] [facility] 110 [place] [address] 12/06/24 Esthela Tesfaye LSW [address] [place] [address] Check Processing Clerk Family Medicine 02/03/25 documented as of this encounter
--- OUTSIDE RECORDS SUMMARY | 2025-03-28 09:10 | XMS_ITS | Encounter Summary ---
Author Organization [facility] Address [address] [place] [address] Care Team Providers Care Dinkey Operator Slag Name Role Phone Sean Ruiz DO Primary Care Provider [phone] Jacob Sharp Unavailable Rasheeda Newton RD Unavailable [phone] Unavailable [phone] Fritz HENDERSON MD, Shlomo Momin Primary Care Provider [phone] Yuan Miller MD, PhD Unavailable [phone] Source Comments In the event this information is protected by the Federal Confidentiality of Alcohol and Drug AbusePatient Records regulations: The Federal rules restrict any use of the information to criminally investigate or prosecute any alcohol or drug abuse patient.[facility] Encounter Details Date Type Department Care Team (Late st Contact Info) Description 09/29/2023 Patient Msg Gastroenterology [address] [phone] Provider, Ccf Please call to schedule Social History Tobacco Use Types Packs/Day Years [...] in a care home (including now)? No 08/10/2023 Area Deprivation Index Answer Date Reagan rded National Score (1-100), lower number is lower ri sk 63 03/05/2023 State Score (1-10), lower number is lower risk 4 03/05/2023 Data from: https://www.neighborhoodatlas.medicine.[facility].edu/. Last address used for calculation [address] [...] AM EDT Office Visit General Surgery [address] [phone] Michael Mora PA-C [address]1 [place], [place] [phone] follow up- add on ok'd by Michael 04/07/2025 1:00 PM EDT [facility] [address] [phone] Agatha Kim PSYD [address] [phone] 04/19/2025 11:00 AM EDT [facility] Neurological [place]anda[place] [address] [phone] Joann Loera APRN.CERTIFIED APPLIANCE SERVICE TECHNICIAN [address] [phone] Cognitive movement issues 04/21/2025 8:30 AM EDT [facility] Nutrition Therapy [address] [phone] Tiffany Banks, RD [address] 2736695 f/u TF forula tolerance and hydration 05/29/2025 9:00 AM EDT [facility] Gastroenterology [address] [phone] Johanna Martinez MD [facility] [address] [place], [place] [address] 3 month follow up 06/28/2025 10:00 AM EDT [facility] Neurology Pain [address] [phone] [place] [address] [address] [phone] Follow up for pain documented as of [...] documented as of this encounter Care Teams Dinkey Operator Slag Relationship Specialty [place] [address] [place] [address] PCP - General Family Medicine 07/09/12 10/05/23 Shlomo Hu II, MD [address] [facility] 110 [place] [address] PCP - General Internal Medicine 10/06/23 Jacob Sharp [address] [place] [address] Referring 04/30/[address] [address] Registered Dietitian Nutrition 06/24/[address] [facility]4 [place] [address] Registered Dietitian Nutrition 08/27/23 Yuan Miller MD, PhD [address] [place] [address] Surgeon General Surgery 02/03/24 documented as of this encounter
--- OUTSIDE RECORDS SUMMARY | 2025-03-28 09:10 | XMS_ITS | Encounter Summary ---
Author Organization [facility] Address [address] [place] [address] Care Team Providers Care Bombsight Specialist Name Role Phone Jacob Sharp Unavailable Rasheeda Newton RD Unavailable [phone] Unavailable [phone] Fritz HENDERSON MD, Shlomo Momin Primary Care Provider [phone] Yuan Miller MD, PhD Unavailable [phone] Source Comments In the event this information is protected by the Federal Confidentiality of Alcohol and Drug AbusePatient Records regulations: The Federal rules restrict any use of the information to criminally investigate or prosecute any alcohol or drug abuse patient.[facility] Encounter Details Date Type Department Care Team (Late st Contact Info) Description 11/09/2023 Get Medical Advice Pain Management [address] [place] [address] Mary Arthur, JOSE.AVIATION ELECTRICAL TECHNICIAN [address] [place] [address] Pain Social History Tobacco Use Types Packs/Day Years [...] is lower risk 4 03/05/2023 Data from: https://www.neighborhoodatlas.medicine.[facility].edu/. Last address used for calculation [address] [address] 03/05/2023 Comments No Sex [...] AM EDT Office Visit General Surgery 9300 [place] [address] Michael Mora PA-C [address]00 [place] [address] follow up- add on ok'd by Michael 04/07/2025 1:00 PM EDT [facility] Neurological Religion [address] [phone] Agatha Kim PSYD [address] [place] [address] 04/19/2025 11:00 AM EDT [facility] Neurological Religion [address] [place] [address] Joann Loera APRN.AVIATION ELECTRICAL TECHNICIAN 9500 [place] [address] Cognitive movement issues 04/21/2025 8:30 AM EDT [facility] Nutrition Therapy [address] [phone] Tiffany Banks, RD [address] [place] [address] f/u TF forula tolerance and hydration 05/29/2025 9:00 AM EDT [facility] Gastroenterology [address] [phone] Johanna Martinez MD [facility] [address] [place], [place] [address] 3 month follow up 06/28/2025 10:00 AM EDT [facility] Neurology Pain [address] [place] [address] [place] [address] [place] [address] Follow up for pain documented as of [...] documented as of this encounter Care Teams Bombsight Specialist Relationship Specialty Start Date End Date Shlomo Hu II, MD [address] [place] [address] PCP - General Internal Medicine 10/06/23 Jacob Sharp [address] [place] [address] Referring 04/30/[address] [place] [address] Registered Dietitian Nutrition 06/24/[address] [place] [address] Registered Dietitian Nutrition 08/27/23 Yuan Miller MD, PhD 9508 [place] [address] Surgeon General Surgery 02/03/24 documented as of this encounter
--- OUTSIDE RECORDS SUMMARY | 2025-03-28 09:10 | XMS_ITS | Encounter Summary ---
Author Organization [facility] Address [address] [facility] [place] [address] Care Team Providers Care Decorator Lighting Fixtures Name Role Phone Shlomo Hu MD Primary Care Provider [phone] Claribel Scott RN Unavailable [phone] Jess Marsh PROGRAM MANAGER Unavailable Esthela Tesfaye DENTAL CERAMIST Unavailable [phone] Reason for Visit * Reason Comments Med Refill Encounter Details Date Type Department Care Team (Late st Contact Info) Description 11/16/2024 Refill [facility] [address] [facility] 160 [place] [address] Shante Kumar, FOOD TESTER-[facility] [address] [facility] 160 [place] [address] Insomnia, unspecified type Social History Tobacco Use Types Packs/Day Years [...] How often do you attend chur or religion services? 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 Not on file Not on file documented as of this encounter Plan of Treatment Upcoming Encounters Date Type Department Care Team ([facility] st Contact Info) Description 04/12/2025 9:50 AM EDT Office Visit [facility] ENDO[facility] [address] [place] [address] Tanya Lozano MD [address] [place] [address] 04/20/2025 3:00 PM EDT Office Visit [facility] PODIATRY [address] [facility] 120 [place] [address] Sonny Rodriguez DPM [address] [facility] 5 [place] [address] 05/04/2025 2:50 PM EDT Office Visit [facility] POD[facility]RY [address] [facility] 120 [place] [address] Sonny Rodriguez DPLudmila [address] [address] documented as of this encounter Visit Diagnoses Diagnosis Insomnia, unspecified type documented in this encounter Additional Health Concerns Assessment Noted Time PHQ-9 Depression Total Score: 18 024 9:42 AM EDT documented as of this encounter Care Teams Decorator Lighting Fixtures Relationship Specialty Start Date End Date Shlomo Hu MD [address] [facility] 110 [place] [address] PCP - General Internal Medicine 02/15/23 Claribel Scott, PIETRO [address] [place] [address] Licensed Practical Nurse Family Medicine 10/21/24 12/06/24 Jess Marsh LPN [address] [place] [address] 12/06/24 Esthela Tesfaye, KIRA [address] [phone] Dog Licenser Family Medicine 02/03/25 documented as of this encounter
--- OUTSIDE RECORDS SUMMARY | 2025-03-28 09:10 | XMS_ITS | Encounter Summary ---
Author Organization [facility] Address [address] [place] [address] Care Team Providers Care Garbage Man Name Role Phone Jacob Sharp Unavailable Rasheeda Newton RD Unavailable [phone] Unavailable [phone] Fritz HENDERSON MD, Shlomo Momin Primary Care Provider [phone] Yuan Miller MD, PhD Unavailable [phone] Source Comments In the event this information is protected by the Federal Confidentiality of Alcohol and Drug AbusePatient Records regulations: The Federal rules restrict any use of the information to criminally investigate or prosecute any alcohol or drug abuse patient.[facility] Encounter Details Date Type Department Care Team (Late st Contact Info) Description 11/03/2023 Patient Msg Gastroenterology [address] [phone] Provider, Ccf time change for 11/05 Social History Tobacco Use Types Packs/Day Years [...] lower risk 4 03/05/2023 Data from: https://www.neighborhoodatlas.medicine.[facility].edu/. Last address used for calculation [address] [...] AM EDT Office Visit General Surgery 9300 [place] [address] Michael Mora PA-C [address] [address] [phone] follow up- add on ok'd by Michael 04/07/2025 1:00 PM EDT [facility] Neurological Caodaism [address] [phone] Agatha Kim PSYD [address] [place] [address] [phone] 04/19/2025 11:00 AM EDT [facility] Neurological Caodaism [address] [phone] Joann Loera APRN.BACKEND DEVELOPER 9500 [place] [address] Cognitive movement issues 04/21/2025 8:30 AM EDT [facility] Nutrition Therapy [address] [phone] Tiffany Banks, RD [address] [place] [phone] f/u TF forula tolerance and hydration 05/29/2025 9:00 AM EDT [facility] Gastroenterology [address] [address] Johanna Martinez MD [facility] [address] [place], [place] [address] 3 month follow up 06/28/2025 10:00 AM EDT [facility] Neurology Pain [address] [place] [address] [phone] [place] [address] [place] [address] Follow up for pain documented as of [...] documented as of this encounter Care Teams Garbage Man Relationship Specialty Start Date End Date Shlomo Hu II, MD [address] [place] [address] PCP - General Internal Medicine 10/06/23 Jacob Sharp [address] [place] [address] Referring 04/30/[address] [phone] Registered Dietitian Nutrition 06/24/[address] [place] [address] Registered Dietitian Nutrition 08/27/23 Yuan Miller MD, PhD 9504 [place] [address] Surgeon General Surgery 02/03/24 documented as of this encounter
--- OUTSIDE RECORDS SUMMARY | 2025-03-28 09:10 | XMS_ITS | Encounter Summary ---
Author Organization [facility] Address [address] [place] [address] Care Team Providers Care Production Line Solderer Name Role Phone Siobhan Sharpjusto Unavailable Rasheeda Newton RD Unavailable [phone] Unavailable [phone] Fritz HENDERSON MD, Shlomo Momin Primary Care Provider [phone] Yuan Miller MD, PhD Unavailable [phone] Source Comments In the event this information is protected by the Federal Confidentiality of Alcohol and Drug AbusePatient Records regulations: The Federal rules restrict any use of the information to criminally investigate or prosecute any alcohol or drug abuse patient.[facility] Encounter Details Date Type Department Care Team (Late st Contact Info) Description 11/20/2023 Patient Msg General Surgery 9[address] [place], [place] [phone] Provider, Ccf Appointment rescheduled Social History Tobacco Use Types Packs/Day Years [...] slept in a mcc (including now)? No 08/10/2023 Area Deprivation Index Answer Date Reagan rded National Score (1-100), lower number is lower ri sk 63 03/05/2023 State Score (1-10), lower number is lower risk 4 03/05/2023 Data from: https://www.neighborhoodatlas.medicine.[facility].edu/. Last address used for calculation 17[address] [...] AM EDT Office Visit General Surgery 9300 [place] [address] Michael Mora PA-C [address]00 [place] [address] follow up- add on ok'd by Michael 04/07/2025 1:00 PM EDT [facility] Neurological Tenriism [address] [phone] Agatha Kim PSYD [address] [phone] 04/19/2025 11:00 AM EDT [facility] Neurological Tenriism [address] 7742006 Joann Loera APRN.CURATOR NATURAL HISTORY MUSEUM [address] [place] [address] Cognitive movement issues 04/21/2025 8:30 AM EDT [facility] Nutrition Therapy [address] [address] Tiffany Banks, RD [address] [place] [phone] f/u TF forula tolerance and hydration 05/29/2025 9:00 AM EDT [facility] Gastroenterology [address] [address] Johanna Martinez MD [facility] [address] [place], [place] [address] 3 month follow up 06/28/2025 10:00 AM EDT [facility] Neurology Pain [address] 7742006 [place] [address] [place] [address] Follow up for pain documented as of [...] documented as of this encounter Care Teams Production Line Solderer Relationship Specialty Start Date End Date Shlomo Hu II, MD [address] [place] [address] PCP - General Internal Medicine 10/06/23 Jacob Sharp [address] [place] [address] Referring 04/30/[address] [place] [address] Registered Dietitian Nutrition 06/24/[address] [place] [address] Registered Dietitian Nutrition 08/27/23 Yuan Miller MD, PhD [address] [place] [address] Surgeon General Surgery 02/03/24 documented as of this encounter
--- OUTSIDE RECORDS SUMMARY | 2025-03-28 09:10 | XMS_ITS | Encounter Summary ---
Author Organization [facility] Address [facility] [place] [address] Care Team Providers Care Production Officer Name Role Phone Jacob Sharp Unavailable Rasheeda Newton RD Unavailable [phone] Unavailable [phone] Fritz HENDERSON MD, Shlomo Momin Primary Care Provider [phone] Yuan Miller MD, PhD Unavailable [phone] Source Comments In the event this information is protected by the Federal Confidentiality of Alcohol and Drug AbusePatient Records regulations: The Federal rules restrict any use of the information to criminally investigate or prosecute any alcohol or drug abuse patient.[facility] Encounter Details Date Type Department Care Team (Late st Contact Info) Description 01/17/2025 Patient [facility] -[address] [place], [place] [phone] Moraima Araya RPh At your next appointment, choose [facility]. Social History Tobacco Use Types Packs/Day Years Used Date Smoking Tobacco: Never Smokeless Tobacco: Never Alcohol Use Standard Drinks/Week Comments Not Currently 0 (1 standard drink = 0.6 oz pur e alcohol) [facility] Utilities Answer Date Recorded In the [...] in a intermediate (including now)? No 02/16/2024 Housing Stability Vital [...] any time in the past 12 m [facility], were you homeless or living in a intermediate (including now)? No 10/18/2024 Area Deprivation Index Answer Date Reagan rded National Score (1-100), lower number is lower ri sk 63 03/05/2023 State Score (1-10), lower number is lower risk 4 03/05/2023 Data from: https://www.neighborhoodatlas.[facility].edu/. Last address used for calculation [address] [...] Office Visit General Surgery [address] 3208006 Michael Mora PA-C [address] [place] [address] [phone] follow up- add on ok'd by Michael 04/07/2025 1:00 PM EDT [facility] Neurological Buddhism [address] [phone] Agatha Kim PSYD [address] [phone] 04/19/2025 11:00 AM EDT [facility] Neurological Buddhism [address] [phone] Joann Loera APRN.FINANCIAL ASSISTANCE ADVISOR 9500 [place] [address] Cognitive movement issues 04/21/2025 8:30 AM EDT [facility] Nutrition Therapy [address] [place] [address] Tiffany Banks, RD [address] [phone] f/u TF forula tolerance and hydration 05/29/2025 9:00 AM EDT [facility] Gastroenterology [address] [phone] Johanna Martinez MD [facility] [address] [place], [place] [address] 3 month follow up 06/28/2025 10:00 AM T [facility] Neurology Pain [address] [phone] [place] [address] [place] [address] Follow up for pain documented as of this encounter Visit Diagnoses Not on filedocumented in this encounter Care Teams Production Officer Relationship Specialty Start Date End Date Shlomo Hu II, MD [address] [place] [address] PCP - General Internal Medicine 10/06/23 Jacob Sharp [address] [address] [phone] Referring 04/30/[address] [place] [phone] Registered Dietitian Nutrition 06/24/[address] [phone] Registered Dietitian Nutrition 08/27/23 Yuan Miller MD, PhD 2[address] [place] [address] Surgeon General Surgery 02/03/24 documented as of this encounter
--- OUTSIDE RECORDS SUMMARY | 2025-03-28 09:10 | XMS_ITS | Encounter Summary ---
Author Organization [facility] Address [address] [facility] [place] [address] Care Team Providers Care Communications Lead Name Role Phone Shlomo Hu MD Primary Care Provider [phone] Thursday, Toya MOUNTER SMOKING PIPE Unavailable [phone] Claribel Scott RN Unavailable Marsh, Jess MOUNTER SMOKING PIPE Unavailable Esthela Tesfaye CENTURA TECHNICAL LEAD SENIOR DEVELOPER Unavailable [phone] Encounter Details Date Type Department Care Team (Late st Contact Info) Description 10/18/2024 Abstract [facility] 112 [facility] 110 [place] [address] Shlomo Hu MD 112 [facility] 110 [place], [place] [address] Social History Tobacco Use Types Packs/Day Years [...] How often do you attend chur or yazidi services? 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 Not on file Not on file documented as of this encounter Plan of Treatment Upcoming Encounters Date Type Department Care Team (Late st Contact Info) Description 04/12/2025 9:50 AM EDT Office Visit [facility] [address] [place] [address] Tanya Lozano MD [address] [place] [address] 04/20/2025 3:00 PM EDT Office Visit [facility] PODIATRY [address] [place] [address] Sonny Rodriguez DPM 3006 [facility] 5 [place] [address] 05/04/2025 2:50 PM EDT Office Visit [facility] PODIATRY [address] [place] [address] Sonny Rodriguez DPLudmila 3006 [facility] 5 [place] [address] documented as of this encounter Visit Diagnoses Not on filedocumented in this encounter Additional Health Concerns Assessment Noted Time PHQ-9 Depression Total Score: 18 024 9:42 AM EDT documented as of this encounter Care Teams Communications Lead Relationship Specialty Start Date End Date Shlomo Hu MD [address] [place] [address] PCP - General Internal Medicine 02/15/23Thursday, DUKE Pittman [address] [place] [address] Licensed Practical Nurse Family Medicine 01/19/24 10/21/24 Claribel Scott, RN [address] [place] [address] Licensed Practical Nurse Family Medicine 10/21/24 12/06/24 Jess Marsh LPN [address] [facility] 110 [place] [address] 12/06/24 Esthela Tesfaye, KIRA [address] [place] [address] Gastrointestinal Technician Family Medicine 02/03/25 documented as of this encounter
--- OUTSIDE RECORDS SUMMARY | 2025-03-28 09:11 | XMS_ITS | Encounter Summary ---
Author Organization [facility] Address [address] [facility] [place] [address] Care Team Providers Care Core Shaper Name Role Phone Shlomo Hu MD Primary Care Provider Thursday, Toya CAMPOSN Unavailable [phone] Shlomo Hu MD Unavailable [phone] Shante Kumar LEAD NUCLEAR MEDICINE TECHNOLOGIST-MANAGER LIBRARY Unavailable Claribel Scott RN Unavailable [phone] Jess Marsh SEO CONSULTANT Unavailable Esthela Tesfaye BRIDGE REPAIR CREW PERSON Unavailable Encounter Details Date Type Department Care Team (Late st Contact Info) Description 05/26/2024 Abstract [facility] 112 [facility] 110 [place] [address] Shlomo Hu MD 112 [facility] 110 [place] [address] Social History Tobacco Use Types [...] Answer Date Recorded Patient Health Questionnaire-2 Score 6 05/10/2024 [facility] of Occupat ional [...] any time in the past 12 m [facility], were you homeless or living in [...] 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 Not on file Not on file documented as of this encounter Plan of Treatment Upcoming Encounters Date Type Department Care Team (Late st Contact Info) Description 04/12/2025 9:50 AM EDT Office Visit [facility] [address] [place] [address] Tanya Lozano MD [address] [place] [address] 04/20/2025 3:00 PM EDT Office Visit [facility] PODIATRY [address] [place] [address] Sonny Rodriguez DPM [address] [address] 05/04/2025 2:50 PM EDT Office Visit [facility] PODIATRY [address] [place] [address] Sonny Rodriguez DPM [address] [address] documented as of this encounter Visit Diagnoses Not on filedocumented in this encounter Additional Health Concerns Assessment Noted Time PHQ-9 Depression Total Score: 18 024 9:42 AM EDT documented as of this encounter Care Teams Core Shaper Relationship Specialty Start Date End Date Shlomo Hu MD [address] [place] [address] PCP - General Internal Medicine 02/15/23 Shlomo Hu MD [address] [place] [address] PCP - [place] Commercial 05/15/2407/14 Shante Kumar, LEAD NUCLEAR MEDICINE TECHNOLOGIST-MANAGER LIBRARY [address] [place] [address] PCP - Denzel Commercial 07/15/24, DUKE Pittman [address] [place] [address] Licensed Practical Nurse Family Medicine 01/19/24 10/21/24 Claribel Scott, RN [address] [place] [address] Licensed Practical Nurse Family Medicine 10/21/24 12/06/24 Jess Marsh LPN [address] [facility] 110 [place] [address] 12/06/24 Esthela Tesfaye, KIRA [address] [place] [address] Vaccinator Family Medicine 02/03/25 documented as of this encounter
--- OUTSIDE RECORDS SUMMARY | 2025-03-28 09:11 | XMS_ITS | Encounter Summary ---
Author Organization [facility] Address [address] [place] [address] Care Team Providers Care Textile Machine Operator Name Role Phone Jacob Sharp Unavailable Rasheeda Newton RD Unavailable [phone] Unavailable [phone] Fritz HENDERSON MD, Shlomo Momin Primary Care Provider [phone] Yuan Miller MD, PhD Unavailable [phone] Source Comments In the event this information is protected by the Federal Confidentiality of Alcohol and Drug AbusePatient Records regulations: The Federal rules restrict any use of the information to criminally investigate or prosecute any alcohol or drug abuse patient.[facility] Encounter Details Date Type Department Care Team (Late st Contact Info) Description 10/08/2023 Patient Msg Gastroenterology [address] [phone] Provider, Ccf Follow ups Social History Tobacco Use Types Packs/Day Years [...] slept in a fpc (including now)? No 08/10/2023 Area Deprivation Index Answer Date Reagan rded National Score (1-100), lower number is lower ri sk 63 03/05/2023 State Score (1-10), lower number is lower risk 4 03/05/2023 Data from: https://www.neighborhoodatlas.medicine.[facility].edu/. Last address used for calculation [address] [...] AM EDT Office Visit General Surgery 9300 [place] [address] Michael Mora PA-C 9500 [place] [address] follow up- add on ok'd by Michael 04/07/2025 1:00 PM EDT [facility] Neurological Anabaptist [address] [place] [address] [phone] Agatha Kim PSYD [address] [phone] 04/19/2025 11:00 AM EDT [facility] Neurological Anabaptist [address] [phone] Joann Loera APRN.ORAL SURGERY TECHNICIAN 9500 [place] [address] Cognitive movement issues 04/21/2025 8:30 AM EDT [facility] Nutrition Therapy [address] [place] [address] [phone] Tiffany Banks, RD [address] [place] [phone] f/u TF forula tolerance and hydration 05/29/2025 9:00 AM EDT [facility] Gastroenterology [address] [address] [address] [facility] [address] [place], [place] [address] 3 month follow up 06/28/2025 10:00 AM EDT [facility] Neurology Pain [address] [place] [phone] [place] [address] [place] [phone] Follow up for pain documented as of [...] documented as of this encounter Care Teams Textile Machine Operator Relationship Specialty Start Date End Date Shlomo Hu II, MD [address] [facility] 110 [place] [address] PCP - General Internal Medicine 10/06/23 Jacob Sharp [address] [place] [address] Referring 04/30/[address] [place] [address] Registered Dietitian Nutrition 06/24/[address]504 [place] [address] Registered Dietitian Nutrition 08/27/23 Yuan Miller MD, PhD 9503 [place] [address] Surgeon General Surgery 02/03/24 documented as of this encounter
--- OUTSIDE RECORDS SUMMARY | 2025-03-28 09:11 | XMS_ITS | Encounter Summary ---
Author Organization [facility] Address [address] [facility] [place] [address] Care Team Providers Care Physician Relations Representative Name Role Phone Shlomo Hu MD Primary Care Provider Jacob Sharp COMMANDER POLICE RESERVES Unavailable Thursday, Toya WARP YARN SORTER Unavailable [phone] Shlomo Hu MD Unavailable [phone] Shante Kumar BUTTERMAKER-CELLO TEACHER Unavailable Claribel Scott RN Unavailable Maximo Jess WARP YARN SORTER Unavailable Esthela Tesfaye SENIOR RESEARCH EXECUTIVE Unavailable Encounter Details Date Type Department Care Team (Late st Contact Info) Description 04/22/2024 Abstract [facility] 112 [facility] 110 [place] [address] Shlomo Hu MD 112 [facility] 110 [place] [address] Social History Tobacco Use Types [...] week 04/18/2024 How often do you attend [facility] or denominational services? Never 04/18/2024 Do you belong to [...] Date Recorded Patient Health Questionnaire-2 Score 6 08/26/2023 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 Not on file Not on file documented as of this encounter Plan of Treatment Upcoming Encounters Date Type Department Care Team ([facility] st Contact Info) Description 04/12/2025 9:50 AM EDT Office Visit [facility] END[facility] [address] [place] [address] Tanya Lozano MD [address] [place] [address] 04/20/2025 3:00 PM EDT Office Visit [facility] POD[facility] [address] [place] [address] Sonny Rodriguez DPM 3006 [facility] 5 [place] [address] 05/04/2025 2:50 PM EDT Office Visit [facility] [address] [place] [address] Sonny Rodriguez DPLudmila [address] [address] documented as of this encounter Visit Diagnoses Not on filedocumented in this encounter Additional Health Concerns Assessment Noted Time PHQ-9 Depression Total Score: 9 08/26/20 23 1:30 PM EST documented as of this encounter Care Teams Physician Relations Representative Relationship Specialty Start Date End Date Shlomo Hu MD [address] [place] [address] PCP - General Internal Medicine 02/15/23 [place] [address] [place] [address] PCP - [place] [employer] 08/14/23 Shlomo Hu MD [address] [place] [address] PCP - [place] [employer] 05/15/2407/14 Shante Kumar, BUTTERMAKER-CELLO TEACHER [address] [place] [address] PCP - [place] [employer] 07/15/24 5 ThursdayToya LPN [address] [place] [address] Licensed Practical Nurse Family Medicine 01/19/24 10/21/24 Claribel Scott, RN [address] [place] [address] Licensed Practical Nurse Family Medicine 10/21/24 12/06/24 Jess Marsh LPN [address] [facility] 110 [place] [address] 12/06/24 Esthela Tesfaye LSW [address] [place] [address] Manager Freelance Family Medicine 02/03/25 documented as of this encounter
--- OUTSIDE RECORDS SUMMARY | 2025-03-28 09:11 | XMS_ITS | Encounter Summary ---
Author Organization [facility] Address [address] [facility] [place] [address] Care Team Providers Care Finish Photographer Name Role Phone Shlomo Hu MD Primary Care Provider [phone] Thursday, Toya CAMPOSN Unavailable [phone] Shlomo Hu MD Unavailable [phone] Shante Kumar LEASING MANAGER-CERTIFIED SCRUM MASTER Unavailable Claribel Scott RN Unavailable Jess Marsh KITCHEN CHEF Unavailable Esthela Tesfaye INTERDISCIPLINARY PROFESSOR Unavailable [phone] Encounter Details Date Type Department Care Team (Late st Contact Info) Description 05/26/2024 Abstract [facility] 112 [facility] 110 [place] [address] Shlomo Hu MD 112 [facility] 110 [place] [address] Social History Tobacco Use Types [...] any clubs o r organizations such as judaism groups, unions, fraternal or athletic groups, or [...] Recorded Patient Health Questionnaire-2 Score 6 05/10/2024 [facility] Occupat ional Health - Occupational [...] any time in the past 12 m [facility], were you homeless or living [...] 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 Not on file Not on file documented as of this encounter Plan of Treatment Upcoming Encounters Date Type Department Care Team (Late st Contact Info) Description 04/12/2025 9:50 AM EDT Office Visit [facility] [address] [place] [address] Tanya Lozano MD [address] [place] [address] 04/20/2025 3:00 PM EDT Office Visit [facility] [address] [place] [address] Sonny Rodriguez DPM [address] [address] 05/04/2025 2:50 PM EDT Office Visit [facility] [address] [place] [address] Sonny Rodriguez DPM [address] [address] documented as of this encounter Visit Diagnoses Not on filedocumented in this encounter Additional Health Concerns Assessment Noted Time PHQ-9 Depression Total Score: 18 024 9:42 AM EDT documented as of this encounter Care Teams Finish Photographer Relationship Specialty Start Date End Date Shlomo Hu MD [address] [place] [address] PCP - General Internal Medicine 02/15/23 Shlomo Hu MD [address] [place] [address] PCP - [place] [employer] 05/15/2407/14 Shante Kumar, LEASING MANAGER-CERTIFIED SCRUM MASTER [address] [place] [address] PCP - [place] [employer] 07/15/24, DUKE Pittman [address] [place] [address] Licensed Practical Nurse Family Medicine 01/19/24 10/21/24 Claribel Scott, RN [address] [place] [address] Licensed Practical Nurse Family Medicine 10/21/24 12/06/24 Jess Marsh LPN [address] [facility] 110 [place] [address] 12/06/24 Esthela Tesfaye, KIRA [address] [facility] [place] [address] Courtesy Booth Cashier Family Medicine 02/03/25 documented as of this encounter
--- OUTSIDE RECORDS SUMMARY | 2025-03-28 09:11 | XMS_ITS ---
Author Organization [facility] Address [address] [place] [address] Care Team Providers Care Flight Test Data Acquisition Technician Name Role Phone Shlomo Hu MD Primary Care Provider [phone] Jess Marsh LPN Unavailable Esthela Tesfaye Unavailable [phone] Chronic Care Management (CCM) Status:Enrolled (Active) Start date:01/19/2024 Enrollment date:01/19/2024 Enrollment reason:Identified using hospital discharge data Overview Please assess for Care Management needs. 01/19/24, 3:52 PM - Toyathursday, DUKE- Patient gives verbal consent to be enrolled in CCM Program and understands there could be a bill for this service if her insurance changes. Case Team Name Relationship Phone Etshela MALONE Glaze Carrier [phone] Jess Marsh LPN(Responsible Staff) [phone] Continued Care and Services Coordination
--- OUTSIDE RECORDS SUMMARY | 2025-03-28 09:11 | XMS_ITS | Encounter Summary ---
Author Organization [facility] Address [address] [facility] [place] [address] Care Team Providers Care Shingles Roofer Helper Name Role Phone Shlomo Hu MD Primary Care Provider Thursday, Toya CAMPOSN Unavailable [phone] Shlomo Hu MD Unavailable [phone] Shante Kumar STORE RECEIVING SPECIALIST-SENIOR BIOINFORMATICS SPECIALIST Unavailable Claribel Scott RN Unavailable Jess Marsh SUPERINTENDENT SYSTEM OPERATION Unavailable Esthela Tesfaye BUTTONHOLER Unavailable Encounter Details Date Type Department Care Team (Late st Contact Info) Description 05/31/2024 Abstract [facility] 112 [facility] 110 [place] [address] Shlomo Hu MD 112 [facility] 110 [place] [address] Social History Tobacco Use Types [...] often do you attend chur ch or nondenominational services? Never 04/18/2024 Do you belong to any clubs o r organizations such as methodist groups, unions, fraternal or athletic groups, or [...] Recorded Patient Health Questionnaire-2 Score 6 05/10/2024 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 Not on file Not on file documented as of this encounter Plan of Treatment Upcoming Encounters Date Type Department Care Team (Late st Contact Info) Description 04/12/2025 9:50 AM EDT Office Visit [facility] [address] [place] [address] Tanya Lozano MD [address] [place] [address] 04/20/2025 3:00 PM EDT Office Visit [facility] [address] [place] [address] Sonny Rodriguez DPM [address] [address] 05/04/2025 2:50 PM EDT Office Visit [facility] [address] [place] [address] Sonny Rodriguez DPM [address] [address] documented as of this encounter Visit Diagnoses Not on filedocumented in this encounter Additional Health Concerns Assessment Noted Time PHQ-9 Depression Total Score: 18 024 9:42 AM EDT documented as of this encounter Care Teams Shingles Roofer Helper Relationship Specialty Start Date End Date Shlomo Hu MD [address] [place] [address] PCP - General Internal Medicine 02/15/23 Shlomo Hu MD [address] [place] [address] PCP - [place] Commercial 05/15/2407/14 Shante Kumar, STORE RECEIVING SPECIALIST-SENIOR BIOINFORMATICS SPECIALIST [address] [place] [address] PCP - [place] [employer] 07/15/24, DUKE Pittman [address] [place] [address] Licensed Practical Nurse Family Medicine 01/19/24 10/21/24 Claribel Scott, RN [address] [place] [address] Licensed Practical Nurse Family Medicine 10/21/24 12/06/24 Jess Marsh LPN [address] [facility] 110 [place] [address] 12/06/24 Esthela Tesfaye, KIRA [address] [facility] [place] [address] Corridor Redevelopment Manager Family Medicine 02/03/25 documented as of this encounter
--- OUTSIDE RECORDS SUMMARY | 2025-03-28 09:11 | XMS_ITS | Encounter Summary ---
Author Organization [facility] Address [address] [facility] [place] [address] Care Team Providers Care Disintegrator Feeder Name Role Phone Shlomo Hu MD Primary Care Provider Jacob Sharp SCHOOL PSYCHOLOGIST ASSISTANT Unavailable Thursday, Toya INTERVENTIONAL CARDIOLOGIST Unavailable [phone] Shlomo Hu MD Unavailable [phone] Shante Kumar LAUNDRY OPERATOR WASH ROOM-BELT AND LINK SHOP SUPERVISOR Unavailable Claribel Scott RN Unavailable [phone] Maximo Jess INTERVENTIONAL CARDIOLOGIST Unavailable Esthela Tesfaye ELECTROPHYSIOLOGY TECHNOLOGIST Unavailable Encounter Details Date Type Department Care Team (Late st Contact Info) Description 05/12/2024 Abstract [facility] 112 [facility] 110 [place] [address] Shlomo Hu MD 112 [facility] 110 [place] [address] Social History Tobacco Use Types [...] week 04/18/2024 How often do you attend [facility] or evangelical services? 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 Not on file Not on file documented as of this encounter Plan of Treatment Upcoming Encounters Date Type Department Care Team ([facility] st Contact Info) Description 04/12/2025 9:50 AM EDT Office Visit [facility] END[facility] [address] [place] [address] Tanya Lozano MD [address] [place] [address] 04/20/2025 3:00 PM EDT Office Visit [facility] P[facility] [address] [place] [address] Sonny Rodriguez DPM 3006 [facility] 5 [place] [address] 05/04/2025 2:50 PM EDT Office Visit [facility] P[facility] [address] [place] [address] Sonny Rodriguez DPLudmila [address] [address] documented as of this encounter Visit Diagnoses Not on filedocumented in this encounter Additional Health Concerns Assessment Noted Time PHQ-9 Depression Total Score: 18 024 9:42 AM EDT documented as of this encounter Care Teams Disintegrator Feeder Relationship Specialty Start Date End Date Shlomo Hu MD [address] [place] [address] PCP - General Internal Medicine 02/15/23 [place] [address] [place] [address] PCP - [place] Commercial 08/14/23 Shlomo Hu MD [address] [place] [address] PCP - [place] Commercial 05/15/2407/14 Shante Kumar, LAUNDRY OPERATOR WASH ROOM-BELT AND LINK SHOP SUPERVISOR [address] [place] [address] PCP - [place] Commercial 07/15/24 5 ThursdayToya LPN [address] [place] [address] Licensed Practical Nurse Family Medicine 01/19/24 10/21/24 Claribel Scott, RN [address] [place] [address] Licensed Practical Nurse Family Medicine 10/21/24 12/06/24 Jess Marsh LPN [address] [facility] 110 [place] [address] 12/06/24 Esthela Tesfaye LSW [address] [place] [address] Edge Stripper Family Medicine 02/03/25 documented as of this encounter
--- OUTSIDE RECORDS SUMMARY | 2025-03-28 09:11 | XMS_ITS | Encounter Summary ---
Author Organization [facility] Address [facility]9 [place] [address] Care Team Providers Care Power Shovel Operator Helper Name Role Phone Sean Ruiz DO Primary Care Provider [phone] Jacob Sharp Unavailable Rasheeda Newton RD Unavailable [phone] Unavailable [phone] Fritz HENDERSON MD, Shlomo Momin Primary Care Provider [phone] Yuan Miller MD, PhD Unavailable [phone] Source Comments In the event this information is protected by the Federal Confidentiality of Alcohol and Drug AbusePatient Records regulations: The Federal rules restrict any use of the information to criminally investigate or prosecute any alcohol or drug abuse patient.[facility] Encounter Details Date Type Department Care Team (Late st Contact Info) Description 09/09/2013 Patient Msg Medical Records [address] [place] [address] Provider, Ccf Results Social History Tobacco Use Types Packs/Day Years Used Date Smoking Tobacco: Never Cigarettes Smokeless Tobacco: Never Alcohol Use Standard Drinks/Week Comments Yes 0 (1 standard drink = 0.6 oz pur e alcohol) social Comments No Sex and Gender Information Value [...] AM EDT Office Visit General Surgery [address] [place] [address] Michael Mora PA-C [address] [place] [id number] follow up- add on ok'd by Michael 04/07/2025 1:00 PM EDT [facility] Neurological Jewish [address] [place] [address] Agatha Kim PSYD [address] [id number] 04/19/2025 11:00 AM EDT [facility] Neurological Jewish [address] [place] [address] Joann Loera APRN.ENGINEERING SPECIALIST TECHNICIAN [address] [id number] Cognitive movement issues 04/21/2025 8:30 AM T [facility] Nutrition Therapy [address] [place] [id number] Tiffany Banks, RD [address] [id number] f/u TF forula tolerance and hydration 05/29/2025 9:00 AM EDT [facility] Gastroenterology [address] [place] [address] Johanna Martinez MD [facility] [address] [place] [address] [id number] 3 month follow up 06/28/2025 10:00 AM EDT [facility] Neurology Pain [address] [place] [address] [place] [address] [place] [address] Follow up for pain documented as of [...] documented as of this encounter Care Teams Power Shovel Operator Helper Relationship Specialty [place] [address] [place] [address] PCP - General Family Medicine 07/09/12 10/05/23 Shlomo Hu II, MD [address] [facility] 110 [place] [address] PCP - General Internal Medicine 10/06/23 Jacob Sharp [address] [place] [address] Referring 04/30/[address] [place] [id number] Registered Dietitian Nutrition 06/24/[address] [place] [address] Registered Dietitian Nutrition 08/27/23 Yuan Miller MD, PhD [address] [place] [address] Surgeon General Surgery 02/03/24 documented as of this encounter
--- OUTSIDE RECORDS SUMMARY | 2025-03-28 09:11 | XMS_ITS | Encounter Summary ---
Author Organization [facility] Address [address] [facility] [place] [address] Care Team Providers Care Premix Operator Concentrate Name Role Phone Shlomo Hu MD Primary Care Provider Thursday, Toya CAMPOSN Unavailable [phone] Shlomo Hu MD Unavailable [phone] Shante Kumar VISUAL COORDINATOR-INDUSTRIAL CHEMIST Unavailable Claribel Scott RN Unavailable [phone] Jess Marsh AMBULATORY ANALYST Unavailable Esthela Tesfaye INCUBATOR TENDER Unavailable Encounter Details Date Type Department Care Team (Late st Contact Info) Description 05/26/2024 Abstract [facility] [address] [facility] 110 [place] [address] Shlomo Hu MD 112 [facility] 110 [place] [address] Social History Tobacco Use Types [...] often do you attend chur ch or druze services? Never 04/18/2024 Do you belong to [...] Recorded Patient Health Questionnaire-2 Score 6 05/10/2024 [facility] of Occupat ional Health - Occupational [...] any time in the past [address] 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 Not on file Not on file documented as of this encounter Plan of Treatment Upcoming Encounters Date Type Department Care Team (Late st Contact Info) Description 04/12/2025 9:50 AM EDT Office Visit [facility] [address] [place] [address] Tanya Lozano MD [address] [place] [address] 04/20/2025 3:00 PM EDT Office Visit [facility] POD[facility] [address] [place] [address] Sonny Rodriguez DPM [address] [address] 05/04/2025 2:50 PM EDT Office Visit [facility] [address] [place] [address] Sonny Rodriguez DPM [address] [address] documented as of this encounter Visit Diagnoses Not on filedocumented in this encounter Additional Health Concerns Assessment Noted Time PHQ-9 Depression Total Score: 18 024 9:42 AM EDT documented as of this encounter Care Teams Premix Operator Concentrate Relationship Specialty Start Date End Date Shlomo Hu MD [address] [place] [address] PCP - General Internal Medicine 02/15/23 Shlomo Hu MD [address] [place] [address] PCP - [place] Commercial 05/15/2407/14 Shante Kumar, VISUAL COORDINATOR-INDUSTRIAL CHEMIST [address] [place] [address] PCP - [place] Commercial 07/15/24, DUKE Pittman [address] [place] [address] Licensed Practical Nurse Family Medicine 01/19/24 10/21/24 Claribel Scott, RN [address] [place] [address] Licensed Practical Nurse Family Medicine 10/21/24 12/06/24 Jess Marsh LPN [address] [facility] 110 [place] [address] 12/06/24 Esthela Tesfaye, KIRA [address] [facility] [place] [address] Livestock Farm Manager Family Medicine 02/03/25 documented as of this encounter
--- OUTSIDE RECORDS SUMMARY | 2025-03-28 09:11 | XMS_ITS | Encounter Summary ---
Author Organization [facility] Address [address] [facility] [place] [address] Care Team Providers Care Hearing Healthcare Practitioner Name Role Phone Shlomo Hu MD Primary Care Provider Thursday, Toya CAMPOSN Unavailable [phone] Shlomo Hu MD Unavailable [phone] Shante Kumar NURSE LEADER-BELL NECK HAMMERER Unavailable Claribel Scott RN Unavailable Jess Marsh HOT END OPERATOR Unavailable Esthela Tesfaye WILDLIFE CONSERVATIONIST Unavailable [phone] Encounter Details Date Type Department Care Team (Late st Contact Info) Description 06/02/2024 Abstract [facility] 112 [facility] 110 [place] [address] Shlomo Hu MD 112 [facility] 110 [place] [address] Social History Tobacco Use Types [...] often do you attend chur ch or scientology services? 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 Not on file Not on file documented as of this encounter Plan of Treatment Upcoming Encounters Date Type Department Care Team (Late st Contact Info) Description 04/12/2025 9:50 AM EDT Office Visit [facility] [address] [place] [address] Tanya Lozano MD [address] [place] [address] 04/20/2025 3:00 PM EDT Office Visit [facility] [address] [place] [address] Sonny Rodriguez DPM [address] [address] 05/04/2025 2:50 PM EDT Office Visit [facility] [address] [place] [address] Sonny Rodriguez DPM [address] [address] documented as of this encounter Visit Diagnoses Not on filedocumented in this encounter Additional Health Concerns Assessment Noted Time PHQ-9 Depression Total Score: 18 024 9:42 AM EDT documented as of this encounter Care Teams Hearing Healthcare Practitioner Relationship Specialty Start Date End Date Shlomo Hu MD [address] [place] [address] PCP - General Internal Medicine 02/15/23 Shlomo Hu MD [address] [place] [address] PCP - [place] Commercial 05/15/2407/14 Shante Kumar, NURSE LEADER-BELL NECK HAMMERER [address] [place] [address] PCP - [place] Commercial 07/15/24, DUKE Pittman [address] [place] [address] Licensed Practical Nurse Family Medicine 01/19/24 10/21/24 Claribel Scott, RN [address] [place] [address] Licensed Practical Nurse Family Medicine 10/21/24 12/06/24 Jess Marsh LPN [address] [facility] 110 [place] [address] 12/06/24 Esthela Tesfaey, KIRA [address] [facility] [place] [address] Manager Helpdesk Family Medicine 02/03/25 documented as of this encounter
--- OUTSIDE RECORDS SUMMARY | 2025-03-28 09:11 | XMS_ITS | Encounter Summary ---
Author Organization [facility] Address [address] [id number] Care Team Providers Care Membership Assistant Name Role Phone Sean Ruiz DO Primary Care Provider [phone] Jacob Sharp Unavailable Rasheeda Newton RD Unavailable [phone] Unavailable [phone] Fritz HENDERSON MD, Shlomo Momin Primary Care Provider [phone] Yuan Miller MD, PhD Unavailable [phone] Source Comments In the event this information is protected by the Federal Confidentiality of Alcohol and Drug AbusePatient Records regulations: The Federal rules restrict any use of the information to criminally investigate or prosecute any alcohol or drug abuse patient.[facility] Encounter Details Date Type Department Care Team (Late st Contact Info) Description 09/15/2013 Patient Msg Medical Records [address] [place], [place] [id number] Provider, Ccf Request an Appointment Social History Tobacco Use [...] AM EDT Office Visit General Surgery [address] [place] [address] Michael Mora PA-C [address] [phone] follow up- add on ok'd by Michael 04/07/2025 1:00 PM EDT [facility] Neurological Yazdanism [address] [place] [address] Agatha Kim PSYD [address] [id number] 04/19/2025 11:00 AM EDT [facility] Neurological Yazdanism [address] [place] [address] Joann Loera APRN.SALES AND CATERING COORDINATOR [address] [id number] Cognitive movement issues 04/21/2025 8:30 AM T [facility] Nutrition Therapy [address] [place] [address] Tiffany Banks, RD [address] [id number] f/u TF forula tolerance and hydration 05/29/2025 9:00 AM EDT [facility] Gastroenterology [address] [place] [address] Johanna Martinez MD [facility] [address] [id number] 3 month follow up 06/28/2025 10:00 AM EDT [facility] Neurology Pain [address] [place] [address] [place] [address] [place] [address] Follow up for pain documented as of [...] documented as of this encounter Care Teams Membership Assistant Relationship Specialty [place] [address] [place] [address] PCP - General Family Medicine 07/09/12 10/05/23 Shlomo Hu II, MD [address] [facility] [address] [place] [address] PCP - General Internal Medicine 10/06/23 Jacob Sharp [address] [place] [address] Referring 04/30/[address] [place] [address] Registered Dietitian Nutrition 06/24/[address] [place] [address] Registered Dietitian Nutrition 08/27/23 Yuan Miller MD, PhD [address] [place] [address] Surgeon General Surgery 02/03/24 documented as of this encounter
--- OUTSIDE RECORDS SUMMARY | 2025-03-28 09:11 | XMS_ITS | Encounter Summary ---
Author Organization [facility] Address [address] [place] [address] Care Team Providers Care Ems Driver Name Role Phone Jacob Sharp Unavailable Rasheeda Newton RD Unavailable [phone] Unavailable [phone] Fritz HENDERSON MD, Shlomo Momin Primary Care Provider [phone] Yuan Miller MD, PhD Unavailable [phone] Source Comments In the event this information is protected by the Federal Confidentiality of Alcohol and Drug AbusePatient Records regulations: The Federal rules restrict any use of the information to criminally investigate or prosecute any alcohol or drug abuse patient.[facility] Encounter Details Date Type Department Care Team (Late st Contact Info) Description 08/02/2024 Discharge Note (enc) HOSP MAIN G100 [address] [place] [address] Kenya Ricketts RN Social History Tobacco Use Types Packs/Day Years Used Date Smoking Tobacco: Never Smokeless Tobacco: Never Alcohol Use Standard Drinks/Week Comments Not Currently 0 (1 standard drink = 0.6 oz pur e alcohol) [facility] Utilities Answer Date Recorded In the past 12 months has th e electric, gas, oil, or water company threatened to shut off services in your home? No 08/01/2024 AUDIT-C Answer Date Recorded Q1: How often [...] PHQ-2 Answer Date Recorded PHQ-2 score 6 07/18/2024 Hunger Vital Sign Answer Date Recorded Within the past 12 months, y ou worried that your food would run out before you got the money to buy more. Sometimes true Within the past 12 months, t he food you bought just didn't last and you didn't have money to get more. Sometimes true PRAPARE - Transportation Answer Date Re corded In the past 12 months, has l ack of transportation kept you from medical appointments or from getting medications? No 07/15 In the past 12 months, has l ack of transportation kept you from meetings, work, or from getting things needed for daily living? No 08/01/2024 Housing Stability Vital Sign Answer Luis Miguel [...] the mortgage or rent on time? No 08/01/2024 In the past 12 months, how m any times have you moved where you were living? 0 08/01/2024 At any time in the past 12 m [facility], were you homeless or living in a group home (including now)? No 08/01/2024 Area Deprivation Index Answer Date Reagan rded National Score (1-100), lower number is lower ri sk 63 03/05/2023 State Score (1-10), lower number is lower risk 4 03/05/2023 Data from: https://www.neighborhoodatlas.[facility]/. Last address used for calculation [address] [...] AM EDT Office Visit General Surgery [address] [id number] Michael Mora PA-C [address] [phone] follow up- add on ok'd by Michael 04/07/2025 1:00 PM EDT [facility] Neurological Christianity [address] [phone] Agatha Kim PSYD [address] [phone] 04/19/2025 11:00 AM EDT [facility] Neurological Christianity [address] [phone] Joann Loera APRN.SNAPPER ON [address] [place] [address] Cognitive movement issues 04/21/2025 8:30 AM EDT [facility] Nutrition Therapy [address] [place] [address] Tiffany Banks, RD [address] [phone] f/u TF forula tolerance and hydration 05/29/2025 9:00 AM T [facility] Gastroenterology [address] [place] [address] Johanna Martinez MD [facility] [address] [place], [place] [phone] 3 month follow up 06/28/2025 10:00 AM T [facility] Neurology Pain [address] [phone] [place] [address] [place] [address] Follow up for pain documented as of this encounter Visit Diagnoses Not on filedocumented in this encounter Care Teams Ems Driver Relationship Specialty Start Date End Date Shlomo Hu II, MD [address] [place] [address] [place] [address] PCP - General Internal Medicine 10/06/23 Jacob Sharp [address] [place] [address] Referring 04/30/[address] [place] [phone] Registered Dietitian Nutrition 06/24/[address] [phone] Registered Dietitian Nutrition 08/27/23 Yuan Miller MD, PhD [address] [place] [address] Surgeon General Surgery 02/03/24 documented as of this encounter
--- OUTSIDE RECORDS SUMMARY | 2025-03-28 09:11 | XMS_ITS | Encounter Summary ---
Author Organization [facility] Address [address] [place] [address] Care Team Providers Care Exhibitor Sales Name Role Phone Sena Ruiz DO Primary Care Provider [phone] Jacob Sharp Unavailable Rasheeda Newton RD Unavailable [phone] Unavailable [phone] Fritz HENDERSON MD, Sholmo Momin Primary Care Provider [phone] Yuan Miller MD, PhD Unavailable [phone] Source Comments In the event this information is protected by the Federal Confidentiality of Alcohol and Drug AbusePatient Records regulations: The Federal rules restrict any use of the information to criminally investigate or prosecute any alcohol or drug abuse patient.[facility] Encounter Details Date Type Department Care Team (Late st Contact Info) Description 04/26/2014 Patient Msg Medical Records [address] [place] [address] Provider, Ccf RE: Request an Appointment Social History Tobacco [...] AM EDT Office Visit General Surgery [address] [place] [address] Michael Mora PA-C [address] [phone] follow up- add on ok'd by Michael 04/07/2025 1:00 PM EDT [facility] Neurological Anabaptism [address] [place] [address] Agatha Kim PSYD [address] [phone] 04/19/2025 11:00 AM EDT [facility] Neurological Anabaptism [address] [phone] Joann Loera APRN.GENERAL WAREHOUSE WORKER [address] [place] [address] Cognitive movement issues 04/21/2025 8:30 AM EDT [facility] Nutrition Therapy [address] [place] [address] Tiffany Banks, RD [address] [phone] f/u TF forula tolerance and hydration 05/29/2025 9:00 AM EDT [facility] Gastroenterology [address] [phone] Johanna Martinez MD [facility] [address] [place] [address] 3 month follow up 06/28/2025 10:00 AM EDT [facility] Neurology Pain [address] [facility] [place] [place] [address] [place] [address] [place] [address] Follow up for pain documented as of [...] documented as of this encounter Care Teams Exhibitor Sales Relationship Specialty [place] [address] [place] [address] PCP - General Family Medicine 07/09/12 10/05/23 Shlomo Hu II, MD [address] [facility] 110 [place] [address] PCP - General Internal Medicine 10/06/23 Jacob Sharp [address] [place] [address] Referring 04/30/[address] [place] [phone] Registered Dietitian Nutrition 06/24/[address] [place] [address] Registered Dietitian Nutrition 08/27/23 Yuan Miller MD, PhD [address] [place] [address] Surgeon General Surgery 02/03/24 documented as of this encounter
--- OUTSIDE RECORDS SUMMARY | 2025-03-28 09:11 | XMS_ITS | Encounter Summary ---
Author Organization [facility] Address [address] [place] [address] Care Team Providers Care Oxygraph Operator Name Role Phone Sean Ruiz DO Primary Care Provider [phone] Jacob Sharp Unavailable Rasheeda Newton RD Unavailable [phone] Unavailable [phone] Firtz HENDERSON MD, Shlomo B Primary Care Provider [phone] Yuan Miller MD, PhD Unavailable [phone] Source Comments In the event this information is protected by the Federal Confidentiality of Alcohol and Drug AbusePatient Records regulations: The Federal rules restrict any use of the information to criminally investigate or prosecute any alcohol or drug abuse patient.[facility] Encounter Details Date Type Department Care Team (Late st Contact Info) Description 10/05/2023 Abstract Gastroenterology [address] [phone] Dietitian, Cgrt [address] [place] [address] Social History Tobacco Use Types Packs/Day Years [...] slept in a intermediate (including now)? No 08/10/2023 Area Deprivation Index [...] AM EDT Office Visit General Surgery [address] [place] [address] Michael Mora PA-C [address] [place] [address] follow up- add on ok'd by Michael 04/07/2025 1:00 PM EDT [facility] Neurological Alevism [address] [phone] Agatha Kim PSYD [address] [place] [address] 04/19/2025 11:00 AM EDT [facility] Neurological Alevism [address] [place] [address] Joann Loera APRN.TONE ARTIST APPRENTICE [address] [place] [address] Cognitive movement issues 04/21/2025 8:30 AM EDT [facility] Nutrition Therapy [address] [phone] Tiffany Banks, RD [address] [phone] f/u TF forula tolerance and hydration 05/29/2025 9:00 AM EDT [facility] Gastroenterology [address] [phone] Johanna Martinez MD [facility] [place] [address] [place], [place] [address] 3 month follow up 06/28/2025 10:00 AM EDT [facility] Neurology Pain [address] [phone] [place] [address] [place] [address] Follow up for pain documented as of [...] documented as of this encounter Care Teams Oxygraph Operator Relationship Specialty [place] [address] [place] [address] PCP - General Family Medicine 07/09/12 10/05/23 Shlomo Hu II, MD [address] [facility] [address] [place] [address] PCP - General Internal Medicine 10/06/23 Jacob Sharp [address] [place] [address] Referring 04/30/[address] [place] [phone] Registered Dietitian Nutrition 06/24/[address] [place] [address] Registered Dietitian Nutrition 08/27/23 Yuan Miller MD, PhD [address] [place] [address] Surgeon General Surgery 02/03/24 documented as of this encounter
--- OUTSIDE RECORDS SUMMARY | 2025-03-28 09:11 | XMS_ITS | Clinical Summary ---
Author Organization [facility] Address [address] [place], [place] [address] Care Team Providers Care Chemical Dependency Nurse Name Role Phone Jacob Sharp Unavailable Rasheeda Newton RD Unavailable [phone] Unavailable [phone] Fritz HENDERSON MD, Shlomo Momin Primary Care Provider [phone] Yuan Miller MD, PhD Unavailable [phone] Allergies Active Allergy Reactions Criticality Noted Date Comments Adhesive Tape (Rosins) Rash,Swelling,Itching Nsaids (Non-Steroidal Anti-Inflammatory Drug) Contraindication-Medic al Surgical 07/29/2022 S/p priscila en y gastric bypass Paroxetine Intolerance 08/08/2022 Gi upset Scopolamine Other: See Comments 07/29/2022 Blurred vision Tramadol Hives Medium 06/26/2022 Medications * This document contains information received from the source organization and may not represent a complete record from that organization. levothyroxine (SYNTHROID) 50 mcg tablet Take 50 mcg by mouth. 017 Active cyanocobalamin, vitamin B-12, (B-12 COMPLIANCE) 1,000 mcg/mL kit 1 mL by INJECTION(UNSPE CIFIED PARENTERAL ROUTES) route one time a week. Active ALPRAZolam (XANAX) 0.5 mg tablet Take 0.5 mg by mouth at bedtime as needed. 022 Active cholecalciferol, Vitamin D3, (VITAMIN D3) 1,250 mcg (50,000 unit) cap capsuleIndication s:Diarrhea due to malabsorption (HCC),Vitamin D deficiency Take 1 capsule by mouth five times a week. Active venlafaxine (EFFEXOR) 75 mg tablet Take 1 tablet by mouth two times a day. 60 tablet Active MULTIVITAMIN-FERR OUS FUMARATE-FOLIC ACID 18 MG-400 MCG TABLET Take 1 tablet by mouth once daily. 30 tablet 024 2025 Active pyridoxine, vitamin B6, (VITAMIN B6) 50 mg tablet Take 1 tablet by mouth once daily. 30 tablet Active thiamine (VITAMIN B1) 100 mg tablet Take 1 tablet by mouth once daily. 30 tablet Active traZODone (DESYREL) 100 mg tablet 200 mg at bedtime Active acetaminophen (TYLENOL) 650 mg/20.3 mL soln Take 31.2 mL by mouth every 6 hours. Do not exceed 5 doses in 24 hours. 500 mL Active tiZANidine (ZANAFLEX) 4 mg tablet Take 1 tablet by mouth every 6 hours. 10 tablet Active Walker misc 1 Units once daily. 1 Each Active methocarbamol (ROBAXIN) 750 mg tablet Take 1 tablet by mouth three times a day as needed (for muscle spasm). 20 tablet Active ondansetron orally disintegrating (ZOFRAN ODT) 8 mg disintegrating tablet Take 1 tablet by mouth every 8 hours as needed for nausea/vomiting . 30 tablet 1 Active Miscellaneous Medical SupplyIndications :On tube feeding diet 1 Each once daily. please provide pt with flush bags for her EN needs. 30 Each 024 2024 Active Miscellaneous Medical SupplyIndications :On tube feeding diet 1 Each as needed. please provide pt with EN pump for EN needs, supply new one as needed 1 Each 2 024 2024 Active zinc oxide-cod liver oil (DESITIN) 40 % paste Apply to affected area around J tube as directed. 120 [address] (PROTONIX) 40 mg tablet Take 1 tablet by mouth two times a day before meals 60 tablet Active naloxone 4 mg/actuation nasal spray (NARCAN) Use 1 spray in one nostril as needed for narcotic overdose. May repeat every 2 to 3 min in alternating nostrils until medical assistance is available 2 Each Active nutritional supplement (PEPTAMEN 1.5) 0.068 gram- 1.5 kcal/mL Peptamen 1.5 or equal formula via J tube goa; rate 65 mL/hour x 12 hours water flush 60 mL, 6x/day 75605 mL 3 Active guar gum (NUTRISOURCE FIBER) packet Take 1 Packet by mouth two times a day. 60 Packet Active enteral pump access.hydrolysis (RELIZORB) crtg One cartridge daily via J tube 30 Each Active gabapentin (NEURONTIN) 600 mg tabletIndications :Visceral hyperalgesia,Neur algia and neuritis,Chronic pain syndrome,History of Priscila-en-Y gastric bypass Dose clarification: Take gabapentin 300mg + 600mg PO TID. Do not adjust dose upward without written Rx instructions from your physician. See attached Rx. 90 tablet 5 025 2025 Active gabapentin (NEURONTIN) 300 mg capsuleIndication s:Visceral hyperalgesia,Neur algia and neuritis,Chronic pain syndrome,History of Priscila-en-Y gastric bypass Dose clarification: Take gabapentin 300mg + 600mg PO TID. Do not adjust dose upward without written Rx instructions from your physician. See attached Rx. 90 capsule 5 025 2025 Active Colestipol HCl (COLESTID) 5 gram granules Take 5 g by mouth two times a day. 180 Packet Active nutritional supplement (PROSOURCE NO CARB) 15-60 gram-kcal/30 mL lipk 1 Package by ORAL/FEEDING TUBE route two times a day. 60 Packet 5 2024 Active Miscellaneous Medical Supply 1 Each one time a week. would like one pack per week of the Medline purple gently bath wipes 4 Each 5 2024 Active Miscellaneous Medical Supply kit 1 Each every 4 months. [employer] MiniOne low profile balloon gastrostomy button with ENFit extension set Size: 18 Fr x 2.5 cm Ref # : [id number] Change tube every 4 months. 1 Kit 5 025 2025 Active Miscellaneous Medical Supply 1 Each one time a week. [employer] 12 inch right angle connection feeding extension set Ref #: [id number] For use with AMT MiniOne low profile balloon jejunostomy feeding tube. Change the extension set weekly 1 Each 025 Active Miscellaneous Medical SupplyIndications :Jejunostomy tube present (HCC),On enteral nutrition 1 each as needed. Needs AMT 18 Fr x 2.5 cm low profile balloon J tube - ENFit 1 each 3 025 Active nutritional supplement (PEPTAMEN INTENSE VHP) 0.09 gram- 1 kcal/mLIndication s:On tube feeding diet Via J tube: Peptamen Intense VHP Continuous/cycl ed pump infusion of 105 mL/hr x 12 hours (1250 mL total/day) via Kangaroo Dung pump. water flush of 50 mL per 1 hour via feed and flush bag 68303 mL 025 Active memantine (NAMENDA) 10 mg tabletIndications :Chronic pain syndrome,Small fiber neuropathy Take 1 tablet by mouth two times a day. 60 tablet 1 025 Active suzetrigine (JOURNAVX) 50 mg tabletIndications :Chronic pain syndrome,Visceral hyperalgesia,Neur algia and neuritis,History of Priscila-en-Y gastric bypass,Generalize d abdominal pain,H/O gastric bypass,Pain at surgical site Trial Rx: Take 1 tab PO daily for acute pain 30 tablet 025 Active jhynvt-hvaaekud-x mylase (CREON) 36,000-114,000- 180,000 unit delayed release capsule Take 2 capsules by mouth three times a day with meals. 1 with snacks 600 capsule 1 025 2025 Active Miscellaneous Medical SupplyIndications :On enteral nutrition at home,Jejunostomy tube present (HCC) 8 Each once daily. needs 4x4 split guaze to change dressing around J tube up to 8 times daily and as needed 240 Each 025 2024 suzetrigine (JOURNAVX) 50 mg tabletIndications :Visceral hyperalgesia,Neur algia and neuritis,Chronic pain syndrome,History of Priscila-en-Y gastric bypass,Generalize d abdominal pain,H/O gastric bypass,Pain at surgical site Trial Rx: Take 1 tab PO daily for acute pain 30 tablet 025 2024 Discontinued memantine (NAMENDA) 10 mg tabletIndications :Chronic pain syndrome,Small fiber neuropathy Take 1 tablet by mouth two times a day. 60 tablet 1 025 2024 Discontinued wvfmmp-blpzpjwv-u mylase (CREON) 36,000-114,000- 180,000 unit delayed release capsule Take 2 capsules by mouth three times a day with meals. 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 reports OK Cognitive communication deficit 05/11/2024 Apraxia of speech 05/11/2024 Somatic symptom disorder 04/18/2024 Recurrent major depressive disorder, in partial remission 04/18/2024 Assessment & Plan (07/05/2024 1:25 PM EDT): Assessment: Pt. reports mood is stable with medication Follows with Psychology/Neurologic anglican Right arm weakness 04/15/2024 Chronic diarrhea 04/12/2024 At risk for delirium 02/20/2024 S/P bariatric surgery 02/15/2024 Palpitation 02/03/2024 Assessment & Plan (07/05/2024 1:22 PM EDT): Assessment: Stable with METOPROLOL , follows with PCP. Assessment & Plan (02/03/2024 10:39 AM EDT): Assessment: Metoprolol prn, last use couple months ago Stable. Disturbance of skin sensation 02/02/2024 Neuropathic pain 02/02/2024 Myofascial pain syndrome 02/02/2024 At high risk for malnutrition 02/02/2024 Stroke-like symptoms 02/02/2024 Overview (02/02/2024): Including basis for in-Hospital neurowork-up with MRI 01/13/2024 unrevealing At risk for peripheral neuropathy 02/02/2024 Antalgic gait 02/02/2024 Scanning speech 01/14/2024 Arm and leg pain 01/14/2024 CLABSI (central line-associated bloodstream infe ction) 01/14/2024 Jejunostomy tube present 01/14/2024 Assessment & Plan (07/05/2024 1:23 PM EDT): Assessment: see HPI, scheduled for surgery DARREN (generalized anxiety disorder) 01/12/2024 Assessment & Plan (02/03/2024 10:30 AM EDT): Assessment: Pt. reports mood is stable with medication Intestinal malabsorption 08/16/2023 FTT (failure to thrive) in adult 08/16/2023 On tube feeding diet 08/16/2023 Assessment & Plan (02/03/2024 10:31 AM EDT): Assessment: Enteral tube feeding, aware NPO p MN Malnutrition of moderate degree 08/07/2023 Epigastric pain 04/22/2023 Left sided abdominal pain 04/22/2023 History of Clostridium difficile colitis 023 C. 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 Anemia 08/11/2022 Abdominal wall abscess at site of surgical wound 08/11/2022 Marginal ulcer 07/29/2022 Obesity, Class I, BMI 30-34.9 07/29/2022 Jarred ulcer, chronic 07/11/2022 Assessment & Plan (07/22/2022 10:28 AM EST): Assessment: See HPI Generalized abdominal pain 06/26/2022 Malnutrition of mild degree 06/26/2022 Assessment & Plan (07/22/2022 10:28 AM EST): Assessment: receiving TPN through PICC line due to inability to eat/ abdominal pain 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 022 Assessment & Plan (07/05/2024 1:24 PM EDT): Assessment: last lab 07/04/2024 CBC hgb/hct 12.7/38.3% , platelets 275 stable Assessment & Plan (02/03/2024 10:30 AM EDT): Assessment: No acute change in lab trends ; denies any overt s/sx of bleeding Assessment & Plan (07/22/2022 10:27 AM EST): Assessment: Labs stable Hemoglobin 11.7 - 15.5 g/dL 11.6 Low Hematocrit 35 - 47 % 34.1 Low Vitamin D deficiency 06/17/2022 Intractable abdominal pain 06/16/2022 Acquired hypothyroidism 06/16/2022 Assessment & Plan (07/05/2024 1:23 PM EDT): Assessment: Stable with levothyroxine (SYNTHROID) , follows with Endocrinology and PCP. Assessment & Plan (02/03/2024 10:29 AM EDT): Assessment: Stable with med, follows with PCP . Assessment & Plan (07/22/2022 10:26 AM EST): Assessment: On Levothyroxine Nausea and vomiting 06/16/2022 Assessment & Plan (07/22/2022 10:29 AM EST): Assessment: Takes medications PRN Also states has post op N/V- requested pre-op medications Overflow diarrhea 06/16/2022 Anxiety 06/16/2022 Assessment & Plan (07/22/2022 10:28 AM EST): Assessment: Alprazolam daily History of Priscila-en-Y gastric bypass 06/16/2022 Assessment & Plan (07/22/2022 10:29 AM EST): Assessment: See HPI Attention deficit hyperactivity disorder (ADHD) 02/20/2021 Ectopic thyroid tissue 08/10/2012 Neck mass 07/09/2012 Breast mass 11/04/2007 Overview (05/17/2010): Right, biopsy Thyroid disorder Assessment & Plan (09/27/2019 8:12 AM EST): Assessment: no longer a problem., had thyroid surgery In 2013 Encounter for cosmetic surgery Resolved Problems Problem Noted Date Diagnosed Date Resolved Date COVID-19 04/13/2024 04/14/2024 Dehydration 02/26/2024 02/29/2024 Fever and chills 01/04/2024 01/14/2024 Other acute postoperative pain 08/01/2022 02/21/2024 Excess skin of abdomen 05/01/201408/12 induced hypertension 08/12/2022 Morbid obesity 02/03/2024 Assessment & Plan (09/27/2019 8:12 AM EST): Assessment: BMI 36.6,had gastric sleeve surgery In 2011,still attempting to lose weight Excess skin of arm 2 Localized adiposity 08/12/20 22 Encounters Date Type Department Care Team Description 03/27/2025 Telephone Gastroenterology [address] [phone] Johanna Martinez MD letter of medical necessity for EN 03/22/2025 [place] [address] Provider, Ccf Sign up to manage your digestive symptoms in between visits, covered by insurance 03/21/2025 Patient Msg Gastroenterology [address] [phone] Provider, Ccf Rafael [facility] prescription services for Creon 03/16/2025 Telephone Gastroenterology [address] [place] [address] Johanna Martinez MD tube supplies 03/15/2025 11:00 AM EDT [facility] Neurology Pain [address] [place] [phone] Wilma Lei DO Chronic pain syndrome; Small fiber neuropathy; Visceral hyperalgesia; Neuralgia and neuritis; History of Priscila-en-Y gastric bypass; Generalized abdominal pain; H/O gastric bypass; Pain at surgical site 03/15/2025 Telephone Gastroenterology [address] [place] [address] Johanna Martinez MD insurane authorization for Relizorb 03/09/2025 Patient [facility] Gastroenterology [address] [address] Provider, Ccf new update on formula 03/09/2025 Patient [facility] Gastroenterology [address] [address] Provider, Ccf follow up on supplies 03/08/2025 Telephone Gastroenterology [address] [place] [address] Johanna Martinez MD supplies for tube 03/03/2025 Telephone Gastroenterology [address] [place] [address] Johanna Martinez MD Insurance Authorization (for creon) 03/02/2025 10:00 AM EDT [facility] Psychiatry [address] [place] [phone] Junior Wilder, Therapist Pain disorder associated with psychological factors and medical condition (Primary Dx) 03/02/2025 Telephone Hematology/Oncolog y [address] [phone] Jeanna Reed APRN.APPLICATION LEAD Regional Sales Leader - Other (Orders need to be faxed) 02/28/2025 11:00 AM EDT [facility] Gastroenterology [address] [place], [place] [phone] Tiffany Banks RD Dietary counseling and surveillance (Primary Dx) 02/28/2025 Telephone Gastroenterology [address] [place] [address] Orders (Tube feeding ) 02/27/2025 Telephone Gastroenterology [address] [place] [address] Johanna Martinez MD Medication Question 02/27/2025 Telephone Gastroenterology [address] [place], [place] [phone] Johanna Martinez MD tube orders 02/23/2025 3:30 PM EDT [facility] Gastroenterology [address] [place], [place] [phone] Johanna Martinez MD On enteral nutrition (Primary Dx); Jejunostomy tube present (HCC); Exocrine pancreatic insufficiency (HCC); Chronic nausea; Overflow diarrhea 02/22/2025 Travel 02/21/2025 Telephone Community Outreach [address] [address] Kaylie Diaz APRN.APPLICATION LEAD 02/21/2025 Orders [place] [address] [place] [address] Kaylie Diaz APRN.APPLICATION LEAD Abnormal mammogram of right breast (Primary Dx) 02/20/2025 Orders [place] [address] [place] [address] Kaylie Diaz APRN.CNP Abnormal mammogram of right breast (Primary Dx) 02/16/2025 9:35 AM EDT - 02/16/2025 11:59 PM EDT Hospital Encounter Radiology [address] [place] [address] Discharge Disposition: Home 02/16/2025 9:13 AM EDT - 02/16/2025 9:34 AM EDT Hospital Encounter Radiology [address] [address] Discharge Disposition: Home 02/16/2025 [place] [address] [place] [address] Johann Echeverria MD Neuropathy pain 02/15/2025 3:00 PM EDT - 02/15/2025 11:59 PM EDT Hospital Encounter RADIO MAMMO MOBILE MAIN [address] [address] Encounter for screening mammogram for malignant neoplasm of breast [Z12.31] Discharge Disposition: Home 02/15/2025 Patient Outreach [facility] [address] [address] Required, No Follow Up COMMUNITY OUTREACH (Mammogram Screening/mmo); Community outreac (Mammogram Screening/ Results) 02/15/2025 [place] [address] [place] [address] Johann Echeverria MD Medication 02/15/2025 [place] [address] [place] [address] Johann Echeverria MD JOURNAVX 02/15/2025 [place] [address] [place] [address] Johann Echeverria MD JOURNAVX 02/09/2025 [place] [address] [place] [address] Johann Echeverria MD Refill Request 02/09/2025 [place] [address] [place] [address] Johann Echeverria MD Refill Request 02/08/2025 4:00 PM EDT [facility] Neurology Pain [address] [place] [phone] Wilma Lei DO Chronic pain syndrome (Primary Dx); Small fiber neuropathy 02/01/2025 Telephone Transplant Center [address] [phone] Main, Intestinal Trans Coord Orders 01/31/2025 Patient Msg [facility] [facility] [place] [phone] Tonya Acosta LISW In home help resources 01/25/2025 Telephone Transplant Center [address] [phone] Main, Intestinal Trans Coord Return Call Request 01/25/2025 Get Medical Advice Rheumatology [address] [phone] Melina Estrada MD Missed appointment 01/24/2025 Telephone Gastroenterology [address] [place] [address] Johanna Martinez MD tube orders 01/19/2025 Travel 01/19/2025 Get Medical Advice [facility] [address] [phone] Kadeem Juan MD therapy treatment plan 01/17/2025 Patient [facility] HB[facility] [place] [address] Moraima Araya RPh At your next appointment, choose [facility] Pharm[facility]. 01/17/2025 Patient [facility] HB[facility] [place] [address] Moraima Araya RPh At your next appointment, choose [facility] Pharm[facility]. 01/04/2025 Patient Msg Gastroenterology [address] [phone] Provider, Ccf medication approval 01/03/2025 Telephone Gastroenterology [address] [phone] Johanna Martinez MD Clinical Update (on Relizorb ) 01/03/2025 Patient Msg Gastroenterology [address] [phone] Provider, Ccf follow up on tube issue 01/02/2025 11:00 AM EDT [facility] [address] [place] [address] Eileen Sanders PA-C Functional neurological symptom disorder with mixed symptoms (Primary Dx); Fatigue, unspecified type 01/02/2025 10:00 AM EDT [facility] [place] [address] [place] [phone] Agatha Kim PSYD Functional neurological symptom disorder with mixed symptoms (Primary Dx); Depressive disorder 01/02/2025 Telephone Gastroenterology [address] [phone] Johanna Martinez MD Patient Question 12/28/2024 Patient Msg Gastroenterology [address] [phone] Provider, Ccf follow up on tube issues 12/27/2024 [address] [place], [place] [phone] Lucia Nicole, ENDLESS TRACK VEHICLE MECHANIC.PHOTO TUBE ASSEMBLER Patient Question from Last 3 Months Immunizations Immunization Administration Dates Next Due influenza (HD-IIV3) vaccine, age 65+ yr, high dose, trivalent, PF (FLUZONE HIGH-DOSE) 08/06/2020 influenza (IIV4) vaccine, ag e 6 mo - 64 yr, quadrivalent, PF (AFLURIA, FLUARIX, FLULAVAL, FLUZONE) 08/09/2023,06/16/2022,06/02/2021,06/28 influenza (RIV3) vaccine, re combinant, trivalent, PF (FLUBLOK) 08/05/2020 influenza vaccine, unspecifi ed formulation 07/22/2019 pneumococcal polysaccharide (PPV23) vaccine, 23 valent (PNEUMOVAX 23) 05/17/2010 tetanus diphtheria pertussis (Tdap) vaccine, age 7+ yr (ADACEL, BOOSTRIX) 04/20/2006 Family History Medical History Relation Comments None Brother 1/2--unkown Coronary Artery Disease Father Emphysema Father Hypertension Father Ischemic Heart Disease Father s/p stent s COPD Mother Hypertension Mother hypoglycemia Mother Thyroid Other 1st cousin - ? G rave's Asthma Sister 1 1/2 sister with female cysts unkown Sister 2 BiPolar-Bulemia Relation Status Comments Brother Father Mother Alive Other Sister 1 Sister 2 Social History Tobacco Use Types Packs/Day Years Used Date Smoking Tobacco: Never Smokeless Tobacco: Never Tobacco Cessation:Counseling Given: Not Answered Alcohol Use Standard Drinks/Week Comments Not Currently [...] is lower risk 4 03/05/2023 Data from: https://www.neighborhoodatlas.medicine.[facility].edu/. Last address used for calculation [address] 03/05/2023 Comments No [...] file Not on file Not on file Last Filed Vital Signs Vital Sign Reading Time Taken Comments Blood Pressure 109/73 12/08/2024 11:09 AM EDT Pulse 83 12/08/2024 11:09 AM EDT Temperature 36.8 C (98.2 F) 12/08/2024 11:09 AM EDT Respiratory Rate 18 12/08/2024 11:09 AM EDT Oxygen Saturation 99% 12/08/2024 11:09 AM EDT Inhaled Oxygen Concentration - - Weight 95.7 kg (211 lb) 02/23/2025 3:48 PM EDT Height 172.7 cm (5' 8 ) 12/08/2024 11:09 AM EDT Body Mass Index 32.08 12/08/2024 11:09 AM EDT Plan of Treatment Upcoming Encounters Date Type Department Care Team (Latest Contact Info) Description 03/31/2025 11:00 AM EDT Office Visit General Surgery [address] [phone] Michael Mora PA-C [address] [phone] follow up- add on ok'd by Michael 04/07/2025 1:00 PM EDT [facility] Neurological [address] [place] [address] Agatha Kim PSYD [address] [place] [address] 04/19/2025 11:00 AM EDT [facility] Neurological [address] [place] [address] Joann Loera APRN.APPLICATION LEAD [address] [place] [address] Cognitive movement issues 04/21/2025 8:30 AM EDT [facility] Nutrition Therapy [address] [phone] Tiffany Banks, RD [address] [phone] f/u TF forula tolerance and hydration 05/29/2025 9:00 AM EDT [facility] Gastroenterology [address] [phone] Johanna Martinez MD [facility] [address] [place] [address] 3 month follow up 06/28/2025 10:00 AM EDT [facility] Neurology Pain [address] [place] [phone] [place] [address] [place] [address] Follow up for pain Health Maintenance Due Date Last Done Comments Annual PCP Team Chronic Dise ase Visit 1994 Hepatitis C Screening 1994 Hepatitis B Vaccine (1 of 3 - 19+ 3-dose series) 1995 Cervical Cancer Screening 1997 DTaP,Tdap,Td Vaccine (2 - Td or Tdap) 04/20/2016 04/20/2006 CT Colonography 2021 Cologuard (FIT-DNA) 2021 Fecal Occult Blood 2021 Lipid Screening 2021 Sigmoidoscopy 2021 Colonoscopy 04/23/2024 04/23/2023, 04/14, 04/10/2023 Colorectal Cancer Screening 04/23/2024 Covid-19 Vaccine (2023-2 5 season) 2024 01/09/2021, 12/19/2020 Influenza Vaccine (#1) 2025 , 08/09/2023, 06/16/2022, Additional history exists Mammogram Screening 03/09/2026 03/09/2025, 02/15/2025, 06/03/2023, Additional history exists Diabetes Screening 12/09/2027 12/08/2024, 0 10/27/2024, 10/26/2024, Additional history exists HIV Screening Completed 12/08/2024, 01/13, 02/03/2024 Medical Devices Implanted Type Area Pattern Puncher Device Identifier Shelf Expiration Date Model / Serial / Lot Amt Mini One 14 Fr 6.0cm Low Profile- Implanted:2023 by Johnana Martinez MD (Quantity not on file) Tube Abdomen 12/13/2026 [id number] / / [id number] Tube Evens Secur-Darren 16fr Standard J Silicone Jejunostomy Trimmable Distal - [id number] Implanted:Qty: 1 on 07/07/2024 at [facility] Tube Left: [email or web address] 09/15/2025 [id number] / / [id number] Explanted Type Area Pattern Puncher Device Identifier Shelf Expiration Date Model / Serial / Lot Tube Evens Secur-Darren 16fr Standard J Silicone Jejunostomy Trimmable Distal - [id number] Implanted:Qty: 1 on 01/11/2024 at [facility] Explanted:2023 (Quantity not on file) Tube Left: Abdomen [facility] 09/15/2025199-16 / / [id number] Procedures Procedure Name Priority Date/Time Associated Diagnosis Comments XR UPPER GI SINGLE CONTRAST 02/16/2025 12:45 PM EDT XR SMALL BOWEL SERIES 02/16/2025 12:[address] CHEST WO IVCON 02/16/2025 9:3 5 AM EDT JEMAL SCREENING W LINDSAY Routine 02/15/2025 3:25 PM EDT Encounter for screening mammogram for malignant neoplasm of breast PT ED PATIENT INFORMATION 02/10/2025 URINE PROTEIN ELECTROPHORESIS RANDOM (P) Routine 01/23/2025 11:49 AM EDT Rash and nonspecific skin eruption Bilateral hand pain Small fiber neuropathy PACHECO (dyspnea on exertion) Alkaline phosphatase elevation PROTEIN RANDOM UR Routine 01/23/2025 11: 49 AM EDT Rash and nonspecific skin eruption Bilateral hand pain Small fiber neuropathy PACHECO (dyspnea on exertion) Alkaline phosphatase elevation URINALYSIS, WITH MICROSCOPIC Routine 01/23/2025 11:49 AM EDT Rash and nonspecific skin eruption Bilateral hand pain Small fiber neuropathy PACHECO (dyspnea on exertion) Alkaline phosphatase elevation MONOCLONAL PROT UR W/INTERP Routine 01/23/2025 11:49 AM EDT Rash and nonspecific skin eruption Bilateral hand pain Small fiber neuropathy PACHECO (dyspnea on exertion) Alkaline phosphatase elevation PROTEIN CREATININE RATIO Routine 01/23/2025 11:49 AM EDT Rash and nonspecific skin eruption Bilateral hand pain Small fiber neuropathy PACHECO (dyspnea on exertion) Alkaline phosphatase elevation PROTEIN ELECT RND UR W/INTERP Routine 01/23/2025 11:49 AM EDT Rash and nonspecific skin eruption Bilateral hand pain Small fiber neuropathy PACHECO (dyspnea on exertion) Alkaline phosphatase elevation ALKALINE PHOSPHATASE ISOENZYMES (P) Routine 01/23/2025 11:47 AM EDT Rash and nonspecific skin eruption Bilateral hand pain Small fiber neuropathy PACHECO (dyspnea on exertion) Alkaline phosphatase elevation ALKALINE PHOSPHATASE Routine 01/23/2025 11:47 AM EDT Rash and nonspecific skin eruption Bilateral hand pain Small fiber neuropathy PACHECO (dyspnea on exertion) Alkaline phosphatase elevation CHROMATIN ANTIBODY Routine 01/23/2025 11 :47 AM EDT Rash and nonspecific skin eruption Bilateral hand pain Small fiber neuropathy PACHECO (dyspnea on exertion) Alkaline phosphatase elevation RIBOSOMAL PSYCHIATRIC NURSE AB BLD Routine 01/23/2025 11:47 AM EDT Rash and nonspecific skin eruption Bilateral hand pain Small fiber neuropathy PACHECO (dyspnea on exertion) Alkaline phosphatase elevation NIKKI-1 AB Routine 01/23/2025 11:47 AM EDT Rash and nonspecific skin eruption Bilateral hand pain Small fiber neuropathy PACHECO (dyspnea on exertion) Alkaline phosphatase elevation SCLERODERMA IGG AB Routine 01/23/2025 11 :47 AM EDT Rash and nonspecific skin eruption Bilateral hand pain Small fiber neuropathy PACHECO (dyspnea on exertion) Alkaline phosphatase elevation ANTI-CENTROMERE AB Routine 01/23/2025 11 :47 AM EDT Rash and nonspecific skin eruption Bilateral hand pain Small fiber neuropathy PACHECO (dyspnea on exertion) Alkaline phosphatase elevation ANTI SSB BLD Routine 01/23/2025 11:47 AM EDT Rash and nonspecific skin eruption Bilateral hand pain Small fiber neuropathy PACHECO (dyspnea on exertion) Alkaline phosphatase elevation ANTI SSA BLD Routine 01/23/2025 11:47 AM EDT Rash and nonspecific skin eruption Bilateral hand pain Small fiber neuropathy PACHECO (dyspnea on exertion) Alkaline phosphatase elevation PSYCHIATRIC NURSE ANTIBODY BLOOD Routine 01/23/2025 11 :47 AM EDT Rash and nonspecific skin eruption Bilateral hand pain Small fiber neuropathy PACHECO (dyspnea on exertion) Alkaline phosphatase elevation VERA IGG AB Routine 01/23/2025 11:47 AM EDT Rash and nonspecific skin eruption Bilateral hand pain Small fiber neuropathy PACHECO (dyspnea on exertion) Alkaline phosphatase elevation PROTEIN TOTAL BLD Routine 01/23/2025 11: 47 AM EDT Rash and nonspecific skin eruption Bilateral hand pain Small fiber neuropathy PACHECO (dyspnea on exertion) Alkaline phosphatase elevation PROTEIN ELECTROPHORESIS SERUM (P) Routine 01/23/2025 11:47 AM EDT Rash and nonspecific skin eruption Bilateral hand pain Small fiber neuropathy PACHECO (dyspnea on exertion) Alkaline phosphatase elevation C-REACTIVE PROTEIN (CRP) Routine 01/23/2025 11:47 AM EDT Rash and nonspecific skin eruption Bilateral hand pain Small fiber neuropathy PACHECO (dyspnea on exertion) Alkaline phosphatase elevation SED RATE WESTERGREN Routine 01/23/2025 1 1:47 AM EDT Rash and nonspecific skin eruption Bilateral hand pain Small fiber neuropathy PACHECO (dyspnea on exertion) Alkaline phosphatase elevation ALK PHOS ISOENZYM BL Routine 01/23/2025 11:47 AM EDT Rash and nonspecific skin eruption Bilateral hand pain Small fiber neuropathy PACHECO (dyspnea on exertion) Alkaline phosphatase elevation ALDOLASE BLD Routine 01/23/2025 11:47 AM EDT Rash and nonspecific skin eruption Bilateral hand pain Small fiber neuropathy PACHECO (dyspnea on exertion) Alkaline phosphatase elevation CK CREATINE KINASE Routine 01/23/2025 11 :47 AM EDT Rash and nonspecific skin eruption Bilateral hand pain Small fiber neuropathy PACHECO (dyspnea on exertion) Alkaline phosphatase elevation CCP ANTIBODY IGG Routine 01/23/2025 11:4 7 AM EDT Rash and nonspecific skin eruption Bilateral hand pain Small fiber neuropathy PACHECO (dyspnea on exertion) Alkaline phosphatase elevation ANTI TY ID Routine 01/23/2025 11:47 AM EDT Rash and nonspecific skin eruption Bilateral hand pain Small fiber neuropathy PACHECO (dyspnea on exertion) Alkaline phosphatase elevation HAVEN BY IFA SCREEN Routine 01/23/2025 11: 47 AM EDT Rash and nonspecific skin eruption Bilateral hand pain Small fiber neuropathy PACHECO (dyspnea on exertion) Alkaline phosphatase elevation IMMUNOFIXATION SCREEN, SERUM Routine 01/23/2025 11:47 AM EDT Rash and nonspecific skin eruption Bilateral hand pain Small fiber neuropathy PACHECO (dyspnea on exertion) Alkaline phosphatase elevation RHEUMATOID FACTOR BL Routine 01/23/2025 11:47 AM EDT Rash and nonspecific skin eruption Bilateral hand pain Small fiber neuropathy PACHECO (dyspnea on exertion) Alkaline phosphatase elevation C3 COMPLEMENT BLD Routine 01/23/2025 11: 47 AM EDT Rash and nonspecific skin eruption Bilateral hand pain Small fiber neuropathy PACHECO (dyspnea on exertion) Alkaline phosphatase elevation C4 COMPLEMENT BLD Routine 01/23/2025 11: 47 AM EDT Rash and nonspecific skin eruption Bilateral hand pain Small fiber neuropathy PACHECO (dyspnea on exertion) Alkaline phosphatase elevation PROTEIN ELECTROPHORESIS SERUM W/INTERP Routine 01/23/2025 11:47 AM EDT Rash and nonspecific skin eruption Bilateral hand pain Small fiber neuropathy PACHECO (dyspnea on exertion) Alkaline phosphatase elevation KAPPA/THOMAS,FREE,SER Routine 01/23/2025 1 1:47 AM EDT Rash and nonspecific skin eruption Bilateral hand pain Small fiber neuropathy PACHECO (dyspnea on exertion) Alkaline phosphatase elevation COMPREHENSIVE METABOLIC PANEL STAT 12/08/2024 10:45 AM EDT Nausea and vomiting, unspecified vomiting type Abdominal pain, unspecified abdominal location Gastrointestinal dysmotility HIV 1/2 COMBO WITH REFLEX TO DIFFERENTIATION Routine 02/03/2024 9:27 AM EDT Disturbance of skin sensation Neuropathic pain Myofascial pain syndrome Antalgic gait At high risk for malnutrition At risk for peripheral neuropathy Stroke-like symptoms COLONOSCOPY DIAGNOSTIC Routine 3 7:15 AM EDT from Last 3 Months or Most Recently Relevant to Health Maintenance Results * XR SMALL BOWEL SERIES (02/16/2025 12:45 PM EDT) Anatomical Region Laterality Modality Abdomen Radiographic Edwige ging 02/16/2025 12:4 5 PM EDT Impressions 02/16/2025 3:59 PM EDT IMPRESSION: PRISCILA-EN-Y ANATOMY WITHOUT DELAYED TRANSIT INTO THE SMALL BOWEL. NO SMALL BOWEL DILATION. 150 MINUTE TRANSIT TIME TO THE COLON. Bag Bundler: PSCB Transcribe Date/Time: Feb 16 2025 3:25P Dictated by : MANUELITO HENSLEY MD This examination was interpreted and the report reviewed and electronically signed by: MANUELITO HENSLEY MD on Feb 16 2025 3:57PM EST Narrative 02/16/2025 3:59 PM EDT * * *Final Report* * * DATE OF EXAM: Feb 16 2025 12:45PM [id number] - XR SMALL BOWEL SERIES / PROCEDURE REASON: post operative anatomy * * * * Physician Interpretation * * * * UPPER GI AND SMALL BOWEL SERIES: CLINICAL INFORMATION: None. TECHNIQUE: A single phase examination of the esophagus was performed with effervescent water-soluble contrast. The study continued as small bowel examination using additional water-soluble contrast. Contrast: ORAL: 220 ml of OMNIPAQUE 350 Fluoroscopy radiation summary: Fluoroscopy time: 0:54 (min:sec). Air kerma: 66.5 mGy. RESULT: Esophagus is normal in course and caliber. There is Priscila-en-Y anatomy. Contrast flows into a small subdiaphragmatic gastric pouch and subsequently into the Priscila limb via patent gastrojejunostomy. No delay in transit across the pouch. The Priscila limb is normal in caliber. Contrast reaches the level of the colon in 150 minutes. The jejunal and ileal fold pattern is grossly normal, without evidence of mass, filling defect, or stricture. Procedure Note Provider, [facility] - 02/16/2025 * * *Final Report* * * DATE OF EXAM: Feb 16 2025 12:45PM [id number] - XR SMALL BOWEL SERIES / PROCEDURE REASON: post operative anatomy * * * * Physician Interpretation * * * * UPPER GI AND SMALL BOWEL SERIES: CLINICAL INFORMATION: None. TECHNIQUE: A single phase examination of the esophagus was performed with effervescent water-soluble contrast. The study continued as small bowel examination using additional water-soluble contrast. Contrast: ORAL: 220 ml of OMNIPAQUE 350 Fluoroscopy radiation summary: Fluoroscopy time: 0:54 (min:sec). Air kerma: 66.5 mGy. RESULT: Esophagus is normal in course and caliber. There is Priscila-en-Y anatomy. Contrast flows into a small subdiaphragmatic gastric pouch and subsequently into the Priscila limb via patent gastrojejunostomy. No delay in transit across the pouch. The Priscila limb is normal in caliber. Contrast reaches the level of the colon in 150 minutes. The jejunal and ileal fold pattern is grossly normal, without evidence of mass, filling defect, or stricture. IMPRESSION IMPRESSION: PRISCILA-EN-Y ANATOMY WITHOUT DELAYED TRANSIT INTO THE SMALL BOWEL. NO SMALL BOWEL DILATION. 150 MINUTE TRANSIT TIME TO THE COLON. Bag Bundler: ZACHERY Transcribe Date/Time: Feb 16 2025 3:25P Dictated by : MANUELITO HENSLEY MD This examination was interpreted and the report reviewed and electronically signed by: MANUELITO HENSLEY MD on Feb 16 2025 3:57PM EST Helene GARCIA Final Re sult * XR UPPER GI SINGLE CONTRAST (02/16/2025 12:45 PM EDT) Anatomical Region Laterality Modality Radiographic Edwige ging 02/16/2025 12:4 5 PM EDT Impressions 02/16/2025 3:59 PM EDT IMPRESSION: PRISCILA-EN-Y ANATOMY WITHOUT DELAYED TRANSIT INTO THE SMALL BOWEL. NO SMALL BOWEL DILATION. 150 MINUTE TRANSIT TIME TO THE COLON. Bag Bundler: [facility] Transcribe Date/Time: Feb 16 2025 3:25P Dictated by : MANUELITO HENSLEY MD This examination was interpreted and the report reviewed and electronically signed by: MANUELITO HENSLEY MD on Feb 16 2025 3:57PM EST Narrative 02/16/2025 3:59 PM EDT * * *Final Report* * * DATE OF EXAM: Feb 16 2025 12:45PM [id number] - XR UPPER GI SINGLE CONTRAST / PROCEDURE REASON: post operative anatomy * * * * Physician Interpretation * * * * UPPER GI AND SMALL BOWEL SERIES: CLINICAL INFORMATION: None. TECHNIQUE: A single phase examination of the esophagus was performed with effervescent water-soluble contrast. The study continued as small bowel examination using additional water-soluble contrast. Contrast: ORAL: 220 ml of OMNIPAQUE 350 Fluoroscopy radiation summary: Fluoroscopy time: 0:54 (min:sec). Air kerma: 66.5 mGy. RESULT: Esophagus is normal in course and caliber. There is Priscila-en-Y anatomy. Contrast flows into a small subdiaphragmatic gastric pouch and subsequently into the Priscila limb via patent gastrojejunostomy. No delay in transit across the pouch. The Priscila limb is normal in caliber. Contrast reaches the level of the colon in 150 minutes. The jejunal and ileal fold pattern is grossly normal, without evidence of mass, filling defect, or stricture. Procedure Note Provider, [facility] - 02/16/2025 * * *Final Report* * * DATE OF EXAM: Feb 16 2025 12:45PM [id number] - XR UPPER GI SINGLE CONTRAST / PROCEDURE REASON: post operative anatomy * * * * Physician Interpretation * * * * UPPER GI AND SMALL BOWEL SERIES: CLINICAL INFORMATION: None. TECHNIQUE: A single phase examination of the esophagus was performed with effervescent water-soluble contrast. The study continued as small bowel examination using additional water-soluble contrast. Contrast: ORAL: 220 ml of OMNIPAQUE 350 Fluoroscopy radiation summary: Fluoroscopy time: 0:54 (min:sec). Air kerma: 66.5 mGy. RESULT: Esophagus is normal in course and caliber. There is Priscila-en-Y anatomy. Contrast flows into a small subdiaphragmatic gastric pouch and subsequently into the Priscila limb via patent gastrojejunostomy. No delay in transit across the pouch. The Priscila limb is normal in caliber. Contrast reaches the level of the colon in 150 minutes. The jejunal and ileal fold pattern is grossly normal, without evidence of mass, filling defect, or stricture. IMPRESSION IMPRESSION: PRISCILA-EN-Y ANATOMY WITHOUT DELAYED TRANSIT INTO THE SMALL BOWEL. NO SMALL BOWEL DILATION. 150 MINUTE TRANSIT TIME TO THE COLON. Bag Bundler: [facility] Transcribe Date/Time: Feb 16 2025 3:25P Dictated by : MANUELITO HENSLEY MD This examination was interpreted and the report reviewed and electronically signed by: MANUELITO HENSLEY MD on Feb 16 2025 3:57PM EST Helene Dumont Filiberto GARCIA Final Re sult * CT CHEST WO IVCON (02/16/2025 9:35 AM EDT) Anatomical Region Laterality Modality Chest Computed Tomogra phy 02/16/2025 9:35 AM EDT Impressions 02/16/2025 9:54 AM EDT IMPRESSION: 1. The left upper lobe nodule has resolved. Otherwise unremarkable chest CT with no new or growing lung nodules. Bag Bundler: PSCB Transcribe Date/Time: Feb 16 2025 9:44A Dictated by : ZAHIRA WILDE MD This examination was interpreted and the report reviewed and electronically signed by: ZAHIRA WILDE MD on Feb 16 2025 9:52AM EST Narrative 02/16/2025 9:54 AM EDT * * *Final Report* * * DATE OF EXAM: Feb 16 2025 9:35AM [facility] [place] - CT CHEST WO IVCON / PROCEDURE REASON: R11.2, R10.9, K92.89 * * * * Physician Interpretation * * * * EXAMINATION: CHEST CT WITHOUT CONTRAST CLINICAL HISTORY: No clinical history or reason for imaging provided. The most recent electronic clinical note mentions 49 y.o. female that presents today for a follow up of contusion to the left 5th toe for the past 6 months over hitting an object and had initial x-rays at [facility] with negative findings. Patient complaints of continued pain with suspicion of possible fracture on prior visit. Technique: Spiral CT acquisition of the chest from the thoracic inlet to the upper abdomen without contrast. MQ: CTCWO_6 CT Radiation dose: Integrated Dose-length product (DLP) for this visit = 195 mGy*cm CT Dose Reduction Employed: Automated exposure control (AEC) Comparison: Abdominal CT from 10/23/2024. CT chest from 01/29/2024 RESULT: Limitations: None. Lines, tubes, and devices: None. Lung parenchyma and airways: The previously described left upper lobe nodule has resolved. There is a stable elongated 4 mm nodule in right middle lobe on image 127, likely a small mucous plug. No new or growing lung nodules have developed. No new consolidations. The central airways are patent. Pleural space: No pleural effusion. No pleural thickening. Lower neck, lymph nodes, and mediastinum: The imaged thyroid gland is normal. No lymphadenopathy in the supraclavicular, axillary, mediastinal, or hilar regions. Surgical clips noted in the anterior mediastinum. Heart, pericardium, and thoracic vessels: The thoracic aorta and main pulmonary artery are normal in caliber. The cardiac chambers are normal in size. No coronary artery atherosclerotic calcifications are noted, although the study is not optimized for coronary assessment. No pericardial effusion or thickening. Bones and soft tissues: No destructive bone lesion. Chest wall is unremarkable. Upper abdomen: Prior cholecystectomy. Surgical staple lines in the stomach. Localizer images: No additional findings. Procedure Note Provider, [facility] - 02/16/2025 * * *Final Report* * * DATE OF EXAM: Feb 16 2025 9:35AM [facility] [place] CT CHEST WO IVCON / PROCEDURE REASON: R11.2, R10.9, K92.89 * * * * Physician Interpretation * * * * EXAMINATION: CHEST CT WITHOUT CONTRAST CLINICAL HISTORY: No clinical history or reason for imaging provided. The most recent electronic clinical note mentions 49 y.o. female that presents today for a follow up of contusion to the left 5th toe for the past 6 months over hitting an object and had initial x-rays at [facility] with negative findings. Patient complaints of continued pain with suspicion of possible fracture on prior visit. Technique: Spiral CT acquisition of the chest from the thoracic inlet to the upper abdomen without contrast. MQ: CTCWO_6 CT Radiation dose: Integrated Dose-length product (DLP) for this visit = 195 mGy*cm CT Dose Reduction Employed: Automated exposure control (AEC) Comparison: Abdominal CT from 10/23/2024. CT chest from 01/29/2024 RESULT: Limitations: None. Lines, tubes, and devices: None. Lung parenchyma and airways: The previously described left upper lobe nodule has resolved. There is a stable elongated 4 mm nodule in right middle lobe on image 127, likely a small mucous plug. No new or growing lung nodules have developed. No new consolidations. The central airways are patent. Pleural space: No pleural effusion. No pleural thickening. Lower neck, lymph nodes, and mediastinum: The imaged thyroid gland is normal. No lymphadenopathy in the supraclavicular, axillary, mediastinal, or hilar regions. Surgical clips noted in the anterior mediastinum. Heart, pericardium, and thoracic vessels: The thoracic aorta and main pulmonary artery are normal in caliber. The cardiac chambers are normal in size. No coronary artery atherosclerotic calcifications are noted, although the study is not optimized for coronary assessment. No pericardial effusion or thickening. Bones and soft tissues: No destructive bone lesion. Chest wall is unremarkable. Upper abdomen: Prior cholecystectomy. Surgical staple lines in the stomach. Localizer images: No additional findings. IMPRESSION IMPRESSION: 1. The left upper lobe nodule has resolved. Otherwise unremarkable chest CT with no new or growing lung nodules. Bag Bundler: PSCB Transcribe Date/Time: Feb 16 2025 9:44A Dictated by : ZAHIRA WILDE MD This examination was interpreted and the report reviewed and electronically signed by: ZAHIRA WILDE MD on Feb 16 2025 9:52AM EST Helene De Los Santos PA-C CT-[facility] Final Re sult * JEMAL SCREENING W LINDSAY (02/15/2025 3:25 PM EDT) Anatomical Region Laterality Modality Breast Mammography 02/15/2025 3:25 PM EDT Impressions 02/17/2025 10:39 AM EDT IMPRESSION: Finding 1: The focal asymmetries in the lower outer quadrant of the right breast, anterior depth require additional evaluation. Diagnostic mammogram with possible ultrasound is recommended. Finding 2: The possible architectural distortion in the upper inner quadrant of the right breast, anterior depth requires additional evaluation. Diagnostic mammogram is recommended. This may correlate to patient's history of prior excisional biopsy (unable to find report of which part of the breast). A scar marker should be placed at time of diagnostic mammogram. BI-RADS Category 0: Incomplete: Needs Additional Imaging Evaluation RISK: Based on the Tyrer-Cuzick (TC) risk assessment model, this patient has a 4.5% lifetime risk of developing breast cancer, meaning they are at average risk for developing breast cancer. However, this is only an estimate based on available history provided on the patient's questionnaire. We encourage all patients to talk with their providers about these results, further recommendations for managing breast health, and appropriate supplemental screening options if the patient has dense breast tissue. REF#[id number]. Interpreting Radiologist: Pili Villar M.D. Electronically signed on: 02/17/2025 Bag Bundler: TIANNA Transcribe Date/Time: Feb 15 2025 3:08P Dictated by : PILI VILLAR MD This examination was interpreted and the report reviewed and electronically signed by: PILI VILLAR MD on Feb 17 2025 10:39AM EST Narrative 02/17/2025 10:39 AM EDT * * *Final Report* * * DATE OF EXAM: Feb 15 2025 3:25PM [id number] - JEMAL SCREENING W LINDSAY / PROCEDURE REASON: Encounter for screening mammogram for malignant neoplasm of breast * * * * Physician Interpretation * * * * RESULT: [place] [address] #[id number] - JEMAL SCREENING W LINDSAY HISTORY: 49 year-old patient presents for screening. No current complaints. Patient states no personal history of breast cancer. COMPARISON STUDIES: The present examination has been compared to a prior imaging study dated 11/19/2022 (mammogram). MAMMOGRAM TECHNIQUE: The study was acquired using full field digital technology and interpreted from soft copy. Digital Breast Tomosynthesis (DBT) images were obtained and used to assist in the interpretation of this examination. MAMMOGRAM FINDINGS: There are scattered areas of fibroglandular density. Finding 1: There are several low density focal asymmetries in the lower outer quadrant of the right breast, anterior depth. Finding 2: There is possible architectural distortion in the upper inner quadrant of the right breast, anterior depth. No suspicious masses, calcifications or other abnormalities are seen in the left breast. Procedure Note Provider, [facility] - 02/17/2025 * * *Final Report* * * DATE OF EXAM: Feb 15 2025 3:25PM [id number] - JEMAL SCREENING W LINDSAY / PROCEDURE REASON: Encounter for screening mammogram for malignant neoplasm of breast * * * * Physician Interpretation * * * * RESULT: [facility] [address] [address] [place] [id number] #[id number] - [facility] SCREENING W LINDSAY HISTORY: 49 year-old patient presents for screening. No current complaints. Patient states no personal history of breast cancer. COMPARISON STUDIES: The present examination has been compared to a prior imaging study dated 11/19/2022 (mammogram). MAMMOGRAM TECHNIQUE: The study was acquired using full field digital technology and interpreted from soft copy. Digital Breast Tomosynthesis (DBT) images were obtained and used to assist in the interpretation of this examination. MAMMOGRAM FINDINGS: There are scattered areas of fibroglandular density. Finding 1: There are several low density focal asymmetries in the lower outer quadrant of the right breast, anterior depth. Finding 2: There is possible architectural distortion in the upper inner quadrant of the right breast, anterior depth. No suspicious masses, calcifications or other abnormalities are seen in the left breast. IMPRESSION IMPRESSION: Finding 1: The focal asymmetries in the lower outer quadrant of the right breast, anterior depth require additional evaluation. Diagnostic mammogram with possible ultrasound is recommended. Finding 2: The possible architectural distortion in the upper inner quadrant of the right breast, anterior depth requires additional evaluation. Diagnostic mammogram is recommended. This may correlate to patient's history of prior excisional biopsy (unable to find report of which part of the breast). A scar marker should be placed at time of diagnostic mammogram. BI-RADS Category 0: Incomplete: Needs Additional Imaging Evaluation RISK: Based on the Tyrer-Cuzick (TC) risk assessment model, this patient has a 4.5% lifetime risk of developing breast cancer, meaning they are at average risk for developing breast cancer. However, this is only an estimate based on available history provided on the patient's questionnaire. We encourage all patients to talk with their providers about these results, further recommendations for managing breast health, and appropriate supplemental screening options if the patient has dense breast tissue. REF#[id number]. Interpreting Radiologist: Pili Villar M.D. 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 Sabas program: PATIENT SAFETY INSTRUCTIONS FOR HEALTHCARE SETTINGS us Michael Mora PA-C [facility] Final Result [facility] * PROTEIN / CREATININE RATIO (01/23/2025 11:49 AM EDT) Protein, Urine Random 13 0 - 20 mg/dL 01/24/2025 7:12 PM EDT [facility] Creatinine, Ur Random (UCRR) 103.4 20.0 - 300.0 mg/dL 01/24/2025 7:12 PM EDT [facility] Protein/Creat Ratio 0.13 <0.15 mg/mg 01/24/2025 7:12 PM EDT [facility] Comment: Adult Proteinuria Categories: <0.15 mg/mg is considered normal to mildly increased 0.15 - 0.50 mg/mg is considered moderately increased >0.50 mg/mg is considered severely increased KDIGO. (2013). KDIGO 2012 Clinical Practice Guideline for the Evaluation and Management of Chronic Kidney Disease. Official Journal of the International Society of Nephrology, 3(1), 1-150. Urine URINE SPECIMEN / Unknown Non Blood / Unknown 01/23/2025 11:49 AM EDT 01/23/2025 11:49 AM EDT us Melina Estrada MD LABORATORY Final Result [facility] [address] [address], [place] * URINE PROTEIN ELECTROPHORESIS RANDOM (P) (01/23/2025 11:49 AM EDT) Albumin %, Urine (Prot Electro) 29.36 % 01/25/2025 7:45 AM EDT [facility] Alpha 1 Globulin %, Urine 3.02 % 01/25/2025 7:45 AM EDT [facility] Alpha 2 Globulin %, Urine 16.80 % 01/25/2025 7:45 AM EDT [facility] Beta Globulin %, Urine 30.60 % 01/25/2025 7:45 AM EDT [facility] Gamma Globulin %, Urine 20.21 % 01/25/2025 7:45 AM EDT [facility] Interpretation (Urine Electro) No definitive M protein is identified on protein electrophores is. No definitive M protein is identified on protein electrophores is. 01/25/2025 7:45 AM EDT [facility] Staff Review (Urine Electro) Reviewed by Mary Cedillo MD 01/25/2025 7:45 AM EDT [facility] Urine URINE SPECIMEN / Unknown Non Blood / Unknown 01/23/2025 11:49 AM EDT 01/23/2025 11:49 AM EDT us Melina Estrada MD LABORATORY Final Result Performing Organization Address City/State/[facility] Co de Phone Number [facility] [address] [place] [address], [place] * URINALYSIS, WITH MICROSCOPIC (01/23/2025 11:49 AM EDT) Color Yellow Yellow 01/23/2025 2:48 PM EDT [facility] Clarity Clear Clear 01/23/2025 2:48 PM EDT [facility] Glucose, Urine Negative Negative 01/23/2025 2:48 PM EDT [facility] Bilirubin, Urine Negative Negative 01/24/20 2:48 PM EDT [facility] Ketones, Urine Negative Negative 01/23/2025 2:48 PM EDT [facility] Specific Mcqueeney, Ur 1.023 1.005 - 1.030 01/23/2025 2:48 PM EDT [facility] Hemoglobin/Blood ,Ur Negative Negative 01/23/2025 2:48 PM EDT [facility] pH, Urine 5.5 <8.5 01/23/2025 2:48 PM EDT [facility] Protein, Urine Negative Negative 01/23/2025 2:48 PM EDT [facility] Urobilinogen 0.2 EU/dL 0.2-1.0 EU/dL 01/23/2025 2:48 PM EDT [facility] Nitrites Negative Negative 01/23/2025 2:48 PM EDT [facility] Leuk Esterase Negative Negative 01/23/2025 2:48 PM EDT [facility] WBC, Urine 0-5 /HPF 0-5 /HPF 01/23/2025 2:48 PM EDT [facility] RBC, Urine 0-2 /HPF 0-2 /HPF 01/23/2025 2:48 PM EDT [facility] Bacteria Negative Negative /HPF 01/23/2025 2:48 PM EDT [facility] Squamous Epithelial Cells None Seen /HPF 01/23/2025 2:48 PM EDT [facility] Casts, Hyaline 0 /LPF 0 /LPF 01/23/2025 2:48 PM EDT [facility] Urine MID-STREAM URINE SPECIMEN / Unknown Non Blood / Unknown 01/23/2025 11:49 AM EDT 01/23/2025 11:49 AM EDT [facility] - 01/23/2025 2:48 PM EDT This test was developed and its performance characteristics determined by [facility] (- [facility]). It has not been cleared or approved by the FDA. [facility] is regulated under CLIA as qualified to perform high-complexity testing. This test is used for clinical purposes. It should not be regarded as investigational or for research. us Melina Estrada MD LABORATORY Final Result [facility] [address] [id number], [place] * PROTEIN RANDOM URINE (01/23/2025 11:49 AM EDT) Protein, Urine Random 13 0 - 20 mg/dL 01/24/2025 7:12 PM EDT [facility] Urine URINE SPECIMEN / Unknown Non Blood / Unknown 01/23/2025 11:49 AM EDT 01/23/2025 11:49 AM EDT us Melina Estrada MD LABORATORY Final Result Performing Organization Address City/[facility]/ZIP Co de Phone Number [facility] [address] [place] [address], [place] * MONOCLONAL PROT UR W/INTERP (01/23/2025 11:49 AM EDT) Result (PA) No M protein is identified. No M protein is identified. 01/25/2025 7:15 AM EDT [facility] Staff Review ([facility]) Reviewed by Mary Cedillo MD 01/25/2025 7:15 AM EDT [facility] Urine URINE SPECIMEN / Unknown Non Blood / Unknown 01/23/2025 11:49 AM EDT 01/23/2025 11:49 AM EDT Melina Estrada MD LABORATORY Final Result Performing Organization Address [facility]/ZIP Co de Phone Number [facility] [address] [phone], [place] * HAVEN BY IFA SCREEN (01/23/2025 11:47 AM EDT) HAVEN Negative Negative 01/24/2025 4:06 PM EDT [facility] Comment: Anti-nuclear antibody test is used as an aid in diagnosis of systemic autoimmune diseases. Where positive and clinically warranted, follow-up using disease- specific testing is recommended. Low positive titers are not uncommon with advanced age, certain chronic infections, and malignancies among others. Test methodology: Indirect fluorescence immunoassay (IFA) using HEp-2 cells. Blood BLOOD SPECIMEN / Unknown Venipuncture / Unknown 01/23/2025 11:47 AM EDT 01/23/2025 11:48 AM EDT Melina Estrada MD LABORATORY Final Result Performing Organization Address [facility] Co de Phone Number [facility] [address] [place], [place] [id number], [place] * IMMUNOFIXATION SCREEN, SERUM (01/23/2025 11:47 AM EDT) Pathologist [facility] MPA Result No M protein is identified. No M protein is identified. 01/26/2025 11:33 AM EDT [facility] Staff Review (MPA) Reviewed by La Aburto M.D., Ph.D 01/26/2025 11:33 AM EDT [facility] Blood BLOOD SPECIMEN / Unknown Venipuncture / Unknown 01/23/2025 11:47 AM EDT 01/23/2025 11:48 AM EDT Melina Estrada MD LABORATORY Final Result Performing Organization Address [facility] Co de Phone Number [facility] [address] [place] [address], [place] * PROTEIN ELECTROPHORESIS SERUM (P) (01/23/2025 11:47 AM EDT) Pathologist [facility] Albumin for SPE 3.69 3.43 - 5.41 g/dL 01/25/2025 7:51 AM EDT [facility] Alpha 1 Globulin 0.24 0.18 - 0.43 g/dL 01/25/2025 7:51 AM EDT [facility] Alpha 2 Globulin 0.57 0.42 - 0.98 g/dL 01/25/2025 7:51 AM EDT [facility] Beta Globulin 0.67 0.61 - 1.17 g/dL 01/25/2025 7:51 AM EDT [facility] Gamma Globulin 0.73 0.53 - 1.51 g/dL 01/25/2025 7:51 AM EDT [facility] Interpretation (Prot Electro) No definitive M protein is identified on protein electrophores is. No definitive M protein is identified on protein electrophores is. 01/25/2025 7:51 AM EDT [facility] M-Protein Location 01/25/2025 7:51 AM EDT [facility] Comment:Not Applicable. M-Protein Concentration 0.00 <=0.00 g/dL 01/25/2025 7:51 AM EDT [facility] SPE Staff Review Reviewed by Mary Cedillo MD 01/25/2025 7:51 AM EDT [facility] Blood BLOOD SPECIMEN / Unknown Venipuncture / Unknown 01/23/2025 11:47 AM EDT 01/23/2025 11:48 AM EDT [facility] - 01/25/2025 7:51 AM EDT Serum electrophoresis test was performed using the TempMine V8 NEXUS capillary electrophoresis method. Results obtained with different assay methods or kits cannot be used interchangeably. us Melina Estrada MD LABORATORY Final Result [facility] [address] [phone], * (ABNORMAL) ALKALINE PHOSPHATASE ISOENZYMES (P) (01/23/2025 11:47 AM EDT) Alk Phos Bone % 49.5 10.7 - 68.3 % 01/24/2025 11:12 PM EDT [facility] Bone Fraction 67.8(H) 12.9 - 52.6 U/L 01/24/2025 11:12 PM EDT [facility] Alk Phos Liver % 50.5 26.0 - 86.2 % 01/24/2025 11:12 PM EDT [facility] Liver Fraction 69.2 16.0 - 69.3 U/L 01/24/2025 11:12 PM EDT [facility] Alk Phos Intestine % 0.0 0.0 - 24.2 % 01/24/2025 11:12 PM EDT [facility] Intestine Fraction 0.0 0.0 - 16.3 U/L 01/24/2025 11:12 PM EDT [facility] Blood BLOOD SPECIMEN / Unknown Venipuncture / Unknown 01/23/2025 11:47 AM EDT 01/23/2025 11:48 AM EDT Melina Estrada MD LABORATORY Final Result Performing Organization Address [facility] Co de Phone Number [facility] [address] [place] [phone], [place] * CHROMATIN ANTIBODY (01/23/2025 11:47 AM EDT) [facility] CHROMATIN AB QUAL Negative Negative 01/24/2025 12:14 PM EDT [facility] Chromatin Antibody <0.2 <1.0 AI 01/24/2025 12:14 PM EDT [facility] Comment:Test Methodology: Mu ltiplex flow immunoassay. Blood BLOOD SPECIMEN / Unknown Venipuncture / Unknown 01/23/2025 11:47 AM EDT 01/23/2025 11:48 AM EDT Narrative [facility] - 01/24/2025 12:14 PM EDT Anti-chromatin antibody is used as an aid in diagnosis of systemic lupus erythematosus. Clinical correlation is required. Test Methodology: Multiplex flow immunoassay. Melina Estrada MD LABORATORY Final Result Performing Organization Address [facility] Co de Phone Number [facility] [address] [address], [place] * KAPPA/THOMAS,FREE,SER (01/23/2025 11:47 AM EDT) [facility] Parmele Free, Serum 17.8 3.3 - 19.4 mg/L 01/24/2025 3:15 PM EDT [facility] Comment: Rarely, increased serum free light chains levels may not be detected or accurately quantified due to prozone phenomenon or in high viscosity samples using this immunoturbidimetric assay. Correlation with other laboratory results and clinical findings is recommended. The Parmele Free Light Chain was performed using the Binding Site Optilite immunoturbidimetric method. Result obtained with different assay methods or kits cannot be used interchangeably. Lambda Free, Serum 13.5 5.7 - 26.3 mg/L 01/24/2025 3:15 PM EDT [facility] Comment: Rarely, increased serum free light chains levels may not be detected or accurately quantified due to prozone phenomenon or in high viscosity samples using this immunoturbidimetric assay. Correlation with other laboratory results and clinical findings is recommended. The Lambda Free Light Chain was performed using the Binding Site Optilite immunoturbidimetric method. Result obtained with different assay methods or kits cannot be used interchangeably. K/L Ratio, Serum 1.32 0.26 - 1.65 01/24/2025 3:15 PM EDT [facility] Blood BLOOD SPECIMEN / Unknown Venipuncture / Unknown 01/23/2025 11:47 AM EDT 01/23/2025 11:48 AM EDT us Melina Estrada MD LABORATORY Final Result [facility] [address] [phone], * CCP ANTIBODY IGG (01/23/2025 11:47 AM EDT) CCP Antibody IgG Qualitative Negative Negative 01/24/2025 1:38 PM EDT [facility] CCP Antibody, IgG <15 <20 Units 01/24/2025 1:38 PM EDT [facility] Blood BLOOD SPECIMEN / Unknown Venipuncture / Unknown 01/23/2025 11:47 AM EDT 01/23/2025 11:48 AM EDT Narrative [facility] - 01/24/2025 1:38 PM EDT This test is used as aid in diagnosis of Rheumatoid arthritis (RA). A negative result cannot rule out RA where clinically suspected. Clinical correlation is required. The following results were obtained with an Inova QUANTA Lite CCP IgG AKILAH. Cyclic Citrullinated Peptide IgG values obtained with different manufacturers' assay methods may not be used interchangeably. The magnitude of the reported IgG levels cannot be correlated to an endpoint titer. Melina Estrada MD LABORATORY Final Result Performing Organization Address [facility] Co de Phone Number [facility] [address] [place], [place] [phone], [place] * RIBOSOMAL PSYCHIATRIC NURSE AB BLD (01/23/2025 11:47 AM EDT) Ribosomal PSYCHIATRIC NURSE Qualitative Negative Negative 01/24/2025 12:14 PM EDT [facility] Comment: Anti-Ribosomal RNA (Ribosomal P) antibody is used as an aid in diagnosis of systemic autoimmune diseases especially systemic lupus erythematosus and mixed connective tissue disease. Cross-reactivity with Anti-vera antibody is not uncommon. Clinical correlation is required. Test Methodology: Multiplex flow immunoassay. Ribosomal PSYCHIATRIC NURSE <0.2 <1.0 AI 01/24/2025 12:14 PM EDT [facility] Blood BLOOD SPECIMEN / Unknown Venipuncture / Unknown 01/23/2025 11:47 AM EDT 01/23/2025 11:48 AM EDT Melina Estrada MD LABORATORY Final Result Performing Organization Address [facility] Co de Phone Number [facility] [address] [place], [place] [phone], [place] * PSYCHIATRIC NURSE ANTIBODY BLOOD (01/23/2025 11:47 AM EDT) PSYCHIATRIC NURSE Antibody QUAL Negative Negative 01/24/2025 12:14 PM EDT [facility] PSYCHIATRIC NURSE Antibody <0.2 <1.0 AI 01/24/2025 12:14 PM EDT [facility] Blood BLOOD SPECIMEN / Unknown Venipuncture / Unknown 01/23/2025 11:47 AM EDT 01/23/2025 11:48 AM EDT Narrative [facility] - 01/24/2025 12:14 PM EDT Anti-PSYCHIATRIC NURSE antibody is used as an aid in diagnosis of systemic autoimmune diseases especially systemic lupus erythematosus and mixed connective tissue disease. Cross-reactivity with Anti-vera antibody is not uncommon. Clinical correlation is required. Test Methodology: Multiplex flow immunoassay. us Melina Estrada MD LABORATORY Final Result Performing Organization Address City/[facility]/ZIP Co de Phone Number [facility] [address] [phone], [place] * VERA IGG AB (01/23/2025 11:47 AM EDT) SM Antibody Qual Negative Negative 01/25/20 12:14 PM EDT [facility] Comment: Anti-Sm (Vera) antibody is used as an aid in diagnosis of systemic lupus erythematosus and its presence is associated with renal disease. A negative result cannot rule out systemic lupus erythematosus. Clinical correlation is required. Test Methodology: Multiplex flow immunoassay. SM Antibody <0.2 <1.0 AI 01/24/2025 12:14 PM EDT [facility] Blood BLOOD SPECIMEN / Unknown Venipuncture / Unknown 01/23/2025 11:47 AM EDT 01/23/2025 11:48 AM EDT us Melina Estrada MD LABORATORY Final Result Performing Organization Address [facility] Co de Phone Number [facility] [address] [phone], [place] * SEDIMENTATION RATE, WESTERGREN (01/23/2025 11:47 AM EDT) Pathologist [facility] Sed Rate, Westergren 8 0 - 20 mm/hr 01/23/2025 3:11 PM EDT [facility] Blood BLOOD SPECIMEN / Unknown Venipuncture / Unknown 01/23/2025 11:47 AM EDT 01/23/2025 11:48 AM EDT us Melina Estrada MD LABORATORY Final Result Performing Organization Address City/[facility]/ZIP Co de Phone Number [facility] [address] [phone], [place] * SCLERODERMA IGG AB (01/23/2025 11:47 AM EDT) Scleroderma Ab Qual Negative Negative 01/24/2025 12:14 PM EDT [facility] Scleroderma Ab, IgG <0.2 <1.0 AI 01/24/2025 12:14 PM EDT [facility] Comment:Scl-70/Scleroderma a ntibody test is used as an aid in diagnosis of systemic sclerosis especially the diffuse cutaneous form. A negative result cannot rule out systemic sclerosis. The final interpretation should consider clinical picture and other test results such as anti-centromere antibody. Test Methodology: Multiplex flow immunoassay. Blood BLOOD SPECIMEN / Unknown Venipuncture / Unknown 01/23/2025 11:47 AM EDT 01/23/2025 11:48 AM EDT Melina Estrada MD LABORATORY Final Result Performing Organization Address City/[facility]/ZIP Co de Phone Number [facility] [address] [phone], [place] * RHEUMATOID FACTOR (01/23/2025 11:47 AM EDT) Pathologist [facility] Rheumatoid Factor <10 <16 IU/mL 01/23/2025 10:06 PM EDT [facility] Blood BLOOD SPECIMEN / Unknown Venipuncture / Unknown 01/23/2025 11:47 AM EDT 01/23/2025 11:48 AM EDT Melina Estrada MD LABORATORY Final Result [facility] [address] [address], [place] * (ABNORMAL) PROTEIN, TOTAL (01/23/2025 11:47 AM EDT) Pathologist [facility] Protein, Total 5.9(L) 6.3 - 8.0 g/dL 01/23/2025 8:20 PM EDT [facility] Blood BLOOD SPECIMEN / Unknown Venipuncture / Unknown 01/23/2025 11:47 AM EDT 01/23/2025 11:48 AM EDT us Melina Estrada MD LABORATORY Final Result Performing Organization Address City/[facility]/ZIP Co de Phone Number [facility] [address] [place] [phone], [place] * NIKKI-1 AB (01/23/2025 11:47 AM EDT) NIKKI 1 ANTIBODY QUAL Negative Negative 2024 12:14 PM EDT [facility] Comment: Anti-NIKKI-1 antibody is used as an aid in diagnosis of polymyositis and dermatomyositis especially with pulmonary involvement. A negative result cannot rule out polymyositis or dermatomyositis. Clinical correlation is required. Test Methodology: Multiplex flow immunoassay. Nikki 1 Antibody <0.2 <1.0 AI 01/24/2025 12:14 PM EDT [facility] Blood BLOOD SPECIMEN / Unknown Venipuncture / Unknown 01/23/2025 11:47 AM EDT 01/23/2025 11:48 AM EDT us Melina Estrada MD LABORATORY Final Result Performing Organization Address [facility]/ZIP Co de Phone Number [facility] [address] [phone], [place] * CREATINE KINASE/CK (01/23/2025 11:47 AM EDT) Pathologist [facility] CK 76 42 - 196 U/L 01/23/2025 8:00 PM EDT [facility] Blood BLOOD SPECIMEN / Unknown Venipuncture / Unknown 01/23/2025 11:47 AM EDT 01/23/2025 11:48 AM EDT us Melina Estrada MD LABORATORY Final Result Performing Organization Address City/[facility]/ZIP Co de Phone Number [facility] [address] [address], [place] * C4 COMPLEMENT (01/23/2025 11:47 AM EDT) C4 Complement 21 13 - 46 mg/dL 01/23/2025 10:17 PM EDT [facility] Blood BLOOD SPECIMEN / Unknown Venipuncture / Unknown 01/23/2025 11:47 AM EDT 01/23/2025 11:48 AM EDT us Melina Estrada MD LABORATORY Final Result [facility] [address] [phone], [place] * C3 COMPLEMENT (01/23/2025 11:47 AM EDT) C3 Complement 113 86 - 166 mg/dL 01/23/2025 10:17 PM EDT [facility] Blood BLOOD SPECIMEN / Unknown Venipuncture / Unknown 01/23/2025 11:47 AM EDT 01/23/2025 11:48 AM EDT us Melina Estrada MD LABORATORY Final Result [facility] [address] [phone], [place] * C-REACTIVE PROTEIN (01/23/2025 11:47 AM EDT) Pathologist [facility] CRP <0.3 <0.9 mg/dL 01/23/2025 10:06 PM EDT [facility] Blood BLOOD SPECIMEN / Unknown Venipuncture / Unknown 01/23/2025 11:47 AM EDT 01/23/2025 11:48 AM EDT us Melina Estrada MD LABORATORY Final Result [facility] [address] [address], [place] * ANTI-CENTROMERE AB (01/23/2025 11:47 AM EDT) CENTROMERE AB QUAL Negative Negative 01/24/2025 12:14 PM EDT [facility] Centromere Ab <0.2 <1.0 AI 01/24/2025 12:14 PM EDT [facility] Comment: Anti-centromere antibody is used as in aid in diagnosis of systemic sclerosis. Clinical correlation is required. Test Methodology: Multiplex flow immunoassay. Blood BLOOD SPECIMEN / Unknown Venipuncture / Unknown 01/23/2025 11:47 AM EDT 01/23/2025 11:48 AM EDT us Melina Estrada MD LABORATORY Final Result Performing Organization Address [facility] Co de Phone Number [facility] [address] [place] [address], [place] * ANTI SSB BLD (01/23/2025 11:47 AM EDT) SSB Antibody <0.2 <1.0 AI 01/24/2025 12:14 PM EDT [facility] Comment: Anti-SSB (anti-La) antibody is used as an aid in diagnosis of a variety of systemic autoimmune diseases, especially for Sjogren's syndrome and systemic lupus erythematosus. Clinical correlation is required. Test Methodology: Multiplex flow immunoassay. SSB Antibody Qual Negative Negative 01/24/2025 12:14 PM EDT [facility] Blood BLOOD SPECIMEN / Unknown Venipuncture / Unknown 01/23/2025 11:47 AM EDT 01/23/2025 11:48 AM EDT us Melina Estrada MD LABORATORY Final Result Performing Organization Address [facility]/ZIP Co de Phone Number [facility] [address] [place] [address], [place] * ANTI SSA BLD (01/23/2025 11:47 AM EDT) SSA Antibody Qual Negative Negative 01/24/2025 12:14 PM EDT [facility] SSA Antibody IgG <0.2 <1.0 AI 01/24/2025 12:14 PM EDT [facility] Comment:Test Methodology: Mu ltiplex flow immunoassay. Blood BLOOD SPECIMEN / Unknown Venipuncture / Unknown 01/23/2025 11:47 AM EDT 01/23/2025 11:48 AM EDT Narrative [facility] - 01/24/2025 12:14 PM EDT Anti-SSA (anti-Ro) antibody is used as an aid in diagnosis of a variety of systemic autoimmune diseases, Sjogren's syndrome among others. Clinical correlation is required. Test Methodology: Multiplex flow immunoassay. Melina Estrada MD LABORATORY Final Result Performing Organization Address [facility]/ZIP Co de Phone Number [facility] [address] [place] [address], [place] * (ABNORMAL) ALKALINE PHOSPHATASE (01/23/2025 11:47 AM EDT) Alkaline Phosphatase 137(H) 34 - 123 U/L 01/23/2025 8:20 PM EDT [facility] Blood BLOOD SPECIMEN / Unknown Venipuncture / Unknown 01/23/2025 11:47 AM EDT 01/23/2025 11:48 AM EDT Melina Estrada MD LABORATORY Final Result Performing Organization Address [facility] Co de Phone Number [facility] [address] [place] [address], [place] * ALDOLASE BLD (01/23/2025 11:47 AM EDT) Aldolase 3.1 1.5 - 8.1 U/L 01/23/2025 6:08 PM EDT [facility] Comment:This test was devjhonatan ped, and its performance characteristics determined by the [facility] Department of Pathology and Laboratory Medicine. It has not been cleared or approved by the FDA. The [facility] Department of Pathology and Laboratory Medicine is regulated under CLIA as qualified to perform high- complexity testing. This test is used for clinical purposes. It should not be regarded as investigational or for research. Blood BLOOD SPECIMEN / Unknown Venipuncture / Unknown 01/23/2025 11:47 AM EDT 01/23/2025 11:48 AM EDT us Melina Estrada MD LABORATORY Final Result [facility] [address] [facility] [address] [place] [id number], * (ABNORMAL) COMPREHENSIVE METABOLIC PANEL (12/08/2024 10:45 AM EDT) Pathologist [facility] Protein, Total 7.1 6.3 - 8.0 g/dL 12/08/2024 11:55 AM EDT [facility] Albumin 4.3 3.9 - 4.9 g/dL 12/08/2024 11:55 AM EDT [facility] Calcium, Total 9.4 8.5 - 10.2 mg/dL 12/08/2024 11:55 AM EDT [facility] Bilirubin, Total 0.4 0.2 - 1.3 mg/dL 12/08/2024 11:55 AM EDT [facility] Alkaline Phosphatase 133(H) 34 - 123 U/L 12/08/2024 11:55 AM EDT [facility] AST 25 13 - 35 U/L 12/08/2024 11:55 AM EDT [facility] ALT 24 7 - 38 U/L 12/08/2024 11:55 AM EDT [facility] Glucose 80 74 - 99 mg/dL 12/08/2024 11:55 AM EDT [facility] Comment: The [place] [employer] (ADA) provides guidance for cutoff [...] Standards of Medical Care in Diabetes 2016, [place] [employer]. Diabetes Care. 2016.39(Suppl 1). BUN 11 7 - 21 mg/dL 12/08/2024 11:55 AM EDT [facility] Creatinine 0.55(L) 0.58 - 0.96 mg/dL 12/08/2024 11:55 AM EDT [facility] Sodium 142 136 - 144 mmol/L 12/08/2024 11:55 AM EDT [facility] Potassium 4.1 3.7 - 5.1 mmol/L 12/08/2024 11:55 AM EDT [facility] Chloride 106 98 - 107 mmol/L 12/08/2024 11:55 AM EDT [facility] CO2 26 22 - 30 mmol/L 12/08/2024 11:55 AM EDT [facility] Anion Gap 10 8 - 15 mmol/L 12/08/2024 11:55 AM EDT [facility] Estimated Glomerular Filtration Rate 113 >=60 mL/min/1. 73m 12/08/2024 11:55 AM EDT [facility] Comment:Estimated Glomerular Filtration Rate (eGFR) is calculated using the 2020 CKD-EPI creatinine equation. This equation utilizes serum creatinine, sex, and age as parameters. The creatinine assay has traceable calibration to isotope dilution- mass spectrometry. Refer to KDIGO guidelines for clinical interpretation. In patients with unstable renal function, e.g. those with acute kidney injury, the eGFR may not accurately reflect actual GFR. Blood BLOOD SPECIMEN / Unknown Venipuncture / Unknown 12/08/2024 10:45 AM EDT 12/08/2024 10:54 AM EDT us Helene De Los Santos PA-C LABORATORY Final Re sult [facility] [address] [facility] [address], [place] * HIV 1/2 COMBO WITH REFLEX TO DIFFERENTIATION (02/03/2024 9:27 AM EDT) HIV 12 Combo (Ag/Ab) Nonreactive Nonreactive 02/03/2024 5:10 PM EDT [facility] HIV-1/2 AB (Confirmatory) 02/03/2024 5:10 PM EDT [facility] Comment:Test not indicated. HIV Interpretation 02/03/2024 5:10 PM EDT [facility] Comment: No evidence of HIV-1 or HIV-2 infection. Should recent infection be suspected, repeat testing may be considered 2-3 weeks after this draw. [place] Rev. Code 3701.243(E): This information has been disclosed to you from confidential records protected from disclosure by state law. You shall make no further disclosure of this information without the specific, written, and informed release of the individual to whom it pertains or as otherwise permitted by state law. A general authorization for the release of medical or other information is not sufficient for the purpose of the release of HIV test results or diagnoses. Blood BLOOD SPECIMEN / Unknown Venipuncture / Unknown 02/03/2024 9:27 AM EDT 02/03/2024 9:27 AM EDT us Yg Solitario MD LABORATORY Final Result [facility] [place] [address], * COLONOSCOPY DIAGNOSTIC (04/23/2023 7:15 AM EDT) Anatomical Region Laterality Modality Other 04/23/2023 7:15 AM EDT Narrative 04/23/2023 8:01 AM EDT [facility] Gastrointestinal Endoscopy Patient Name: Melina Taveras Procedure Date: 04/23/2023 7:15 AM Date of : 1975 Admit Type: Outpatient Age: 47 Room: [place] [address] Gender: Female Note Status: Finalized Attending MD: Rene Peter MD Procedure: Colonoscopy Indications: Chronic diarrhea Providers: Rene Peter MD Patient Profile: This is a 47 year old female. Refer to note in patient chart for documentation of history and physical. Last Colonoscopy: March 2023. Referring Physician: Brigitte (watch parts grinder) Rambasek (Referring MD) Medicines: Monitored Anesthesia Care Complications: [...] by the physician, the nurse and the senior category manager in the pre-procedure area in the procedure [...] previously scheduled. Procedure Code(s): --- Professional --- 68056, Colonoscopy, flexible; with biopsy, single or multiple Diagnosis Code(s): --- Professional --- K52.9, Noninfective gastroenteritis and colitis, unspecified K57.30, Diverticulosis of large intestine without perforation or abscess without bleeding CPT copyright 2020 [place] [employer]. All rights reserved. The codes documented in this report are preliminary and upon system development engineer review may be revised to meet current compliance requirements. Attending Participation: I personally performed the entire procedure. Scope In: 7:35:44 AM Scope Out: 7:55:36 AM MD Rene Weinstein MD 04/23/2023 7:58:41 AM This report has been signed electronically by Rene Peter MD Number of Addenda: 0 Note Initiated On: 04/23/2023 7:15 AM Estimated Blood Loss: Estimated blood loss was minimal. Brigitte Garcia ENDLESS TRACK VEHICLE MECHANIC.APPLICATION LEAD DIGESTIVE DISEASE Final R esult from Last 3 Months or Most Recently Relevant to Health Maintenance Insurance [employer] App PPO Advance Directives Documents on File Type Date Recorded Patient Technology Project Manager Expl anation Advance Directive(s) 08/01/2024 5:48 PM Advance Directive(s) 07/30/2022 4:02 PM Advance Directive(s) 09/27/2019 7:51 AM * Full Code (Latest Code Status on File) Date Activated Date Inactivated Comments 07/30/2024 12:10 PM 08/02/2024 6:27 PM Question Answer Comments Full Code Order Discussed With: Patient * Full Code Date Activated Date Inactivated Comments 01/04/2024 4:18 PM 01/18/2024 7:26 PM Question Answer Comments Full Code Order Discussed With: Patient * Full Code Date Activated Date Inactivated Comments 08/10/2023 11:58 AM 08/17/2023 9:43 PM Question Answer Comments Full Code Order Discussed With: Patient * Full Code Date Activated Date Inactivated Comments 04/08/2023 3:09 AM 04/12/2023 2:59 PM Question Answer Comments Full Code Order Discussed With: Patient Care Teams Chemical Dependency Nurse Relationship Specialty Start Date End Date Shlomo Hu II, MD [address] [facility] [address] [place] [address] PCP - General Internal Medicine 10/06/23 Jacob Sharp [address] [place] [address] Referring 04/30/[address] [place] [address] Registered Dietitian Nutrition 06/24/[address] [place], [place] [id number] Registered Dietitian Nutrition 08/27/23 Yuan Miller MD, PhD [address] [place], [place] [id number] Surgeon General Surgery 02/03/24
--- OUTSIDE RECORDS SUMMARY | 2025-03-28 09:11 | XMS_ITS | Encounter Summary ---
Author Organization [facility] Address [address] [facility] [place] [address] Care Team Providers Care Pig Iron Loader Name Role Phone Shlomo Hu MD Primary Care Provider Thursday, Toya CAMPOSN Unavailable [phone] Shlomo Hu MD Unavailable [phone] Shante Kumar CHEMIST-SELF SEALING FUEL TANK BUILDER Unavailable Claribel Scott RN Unavailable Jess Marsh SPRINKLER HELPER Unavailable Esthela Tesfaye HOSPICE CARE TRANSITIONS COORDINATOR Unavailable Encounter Details Date Type Department Care Team (Late st Contact Info) Description 06/02/2024 Abstract [facility] 112 [facility] 110 [place] [address] Shlomo Hu MD 112 [facility] 110 [place] [address] Social History Tobacco Use Types [...] often do you attend chur ch or anabaptism services? 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 Not on file Not on file documented as of this encounter Plan of Treatment Upcoming Encounters Date Type Department Care Team (Late st Contact Info) Description 04/12/2025 9:50 AM EDT Office Visit [facility] [address] [place] [address] Tanya Lozano MD [address] [place] [address] 04/20/2025 3:00 PM EDT Office Visit [facility] [address] [place] [address] [place] [address] Sonny Rodriguez DPM [address] [address] 05/04/2025 2:50 PM EDT Office Visit [facility] [address] [place] [address] Sonny Rodriguez DPM [address] [address] documented as of this encounter Visit Diagnoses Not on filedocumented in this encounter Additional Health Concerns Assessment Noted Time PHQ-9 Depression Total Score: 18 024 9:42 AM EDT documented as of this encounter Care Teams Pig Iron Loader Relationship Specialty Start Date End Date Shlomo Hu MD [address] [place] [address] [place] [address] PCP - General Internal Medicine 02/15/23 Shlomo Hu MD [address] [place] [address] [place] [address] PCP - [place] [employer] 05/15/2407/14 Shante Kumar, CHEMIST-SELF SEALING FUEL TANK BUILDER [address] [place] [address] PCP - [place] [employer] 07/15/24, DUKE Pittman [address] [place] [address] Licensed Practical Nurse Family Medicine 01/19/24 10/21/24 Claribel Scott, RN [address] [place] [address] Licensed Practical Nurse Family Medicine 10/21/24 12/06/24 Jess Marsh LPN [address] [facility] 110 [place] [address] 12/06/24 Esthela Tesfaye, KIRA [address] [facility] [address] Interior Assemblies Installer Family Medicine 02/03/25 documented as of this encounter
--- OUTSIDE RECORDS SUMMARY | 2025-03-28 09:11 | XMS_ITS | Encounter Summary ---
Author Organization [facility] Address [address] [facility] [place] [address] Care Team Providers Care Stranding Machine Operator Helper Name Role Phone Shlomo Hu MD Primary Care Provider [phone] Thursday, Toya CAMPOSN Unavailable [phone] Shlomo Hu MD Unavailable [phone] Shante Kumar STEEL SAMPLER-HYDROELECTRIC STATION OPERATOR Unavailable Claribel Scott RN Unavailable Jess Marsh [employer] OFFICER Unavailable Esthela Tesfaye REFINERY PROCESS ENGINEER Unavailable Encounter Details Date Type Department Care Team (Late st Contact Info) Description 06/03/2024 Abstract [facility] [address] [facility] 110 [place] [address] Shlomo Hu MD 112 [facility] 110 [place] [address] Social History Tobacco Use Types [...] often do you attend chur ch or mandaeism services? 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 Not on file Not on file documented as of this encounter Plan of Treatment Upcoming Encounters Date Type Department Care Team (Late st Contact Info) Description 04/12/2025 9:50 AM EDT Office Visit [facility] [address] [place] [address] Tanya Lozano MD [address] [place] [address] 04/20/2025 3:00 PM EDT Office Visit [facility] [address] [place] [place] [address] Sonny Rodriguez DPM [address] [address] 05/04/2025 2:50 PM EDT Office Visit [facility] [address] [place] [place] [address] Sonny Rodriguez DPM [address] [address] documented as of this encounter Visit Diagnoses Not on filedocumented in this encounter Additional Health Concerns Assessment Noted Time PHQ-9 Depression Total Score: 18 024 9:42 AM EDT documented as of this encounter Care Teams Stranding Machine Operator Helper Relationship Specialty Start Date End Date Shlomo Hu MD [address] [place] [address] [place] [address] PCP - General Internal Medicine 02/15/23 Shlomo Hu MD [address] [place] [address] [place] [address] PCP - [place] Commercial 05/15/2407/14 Shante Kumar, STEEL SAMPLER-HYDROELECTRIC STATION OPERATOR [address] [place] [address] PCP - [place] [employer] 07/15/24, DUKE Pittman [address] [place] [address] Licensed Practical Nurse Family Medicine 01/19/24 10/21/24 Claribel Scott, RN [address] [place] [address] Licensed Practical Nurse Family Medicine 10/21/24 12/06/24 Jess Marsh LPN [address] [facility] 110 [place] [address] 12/06/24 Esthela Tesfaye, KIRA [address] [facility] [place] [address] Network Communications Engineer Family Medicine 02/03/25 documented as of this encounter
--- OUTSIDE RECORDS SUMMARY | 2025-03-28 09:11 | XMS_ITS | Encounter Summary ---
Author Organization [facility] Address [address] [place] [id number] Care Team Providers Care Auto Detailer Name Role Phone Sean Ruiz DO Primary Care Provider [phone] Jacob Sharp Unavailable Rasheeda Newton RD Unavailable [phone] Unavailable [phone] Fritz HENDERSON MD, Shlomo Momin Primary Care Provider [phone] Yuan Miller MD, PhD Unavailable [phone] Source Comments In the event this information is protected by the Federal Confidentiality of Alcohol and Drug AbusePatient Records regulations: The Federal rules restrict any use of the information to criminally investigate or prosecute any alcohol or drug abuse patient.[facility] Encounter Details Date Type Department Care Team (Late st Contact Info) Description 09/16/2013 Patient Msg Medical Records [address] [place] [address] Provider, [facility] f/u with ENT Social History Tobacco Use Types Packs/Day Years [...] AM EDT Office Visit General Surgery [address] [place] [address] Michael Mora PA-C [address] [place] [phone] follow up- add on ok'd by Michael 04/07/2025 1:00 PM EDT [facility] Neurological Bahai [address] [place] [address] Agatha Kim PSYD [address] [place] [phone] 04/19/2025 11:00 AM EDT [facility] Neurological [facility] [address] [place] [phone] Joann Loera APRN.BAG SORTER [address] [place] [address] Cognitive movement issues 04/21/2025 8:30 AM EDT [facility] Nutrition Therapy [address] [place] [address] Tiffany Banks, RD [address] [place] [id number] f/u TF forula tolerance and hydration 05/29/2025 9:00 AM EDT [facility] Gastroenterology [address] [place] [phone] Johanna Martinez MD [facility] [address] [place] [address] 3 month follow up 06/28/2025 10:00 AM EDT [facility] Neurology Pain [address] [facility] [facility] [place] [place] [address] [place] [address] [place] [address] Follow up for pain documented as of [...] documented as of this encounter Care Teams Auto Detailer Relationship Specialty [place] [address] [place] [address] PCP - General Family Medicine 07/09/12 10/05/23 Shlomo Hu II, MD 112 [facility] 110 [place] [address] PCP - General Internal Medicine 10/06/23 Jacob Sharp [address] [place] [address] Referring 04/30/[address] [place] [id number] Registered Dietitian Nutrition 06/24/[address] [place] [address] Registered Dietitian Nutrition 08/27/23 Yuan Miller MD, PhD [address] [place] [address] Surgeon General Surgery 02/03/24 documented as of this encounter
--- OUTSIDE RECORDS SUMMARY | 2025-03-28 09:12 | XMS_ITS | Encounter Summary ---
Author Organization [facility] Address [address] [place] [address] Care Team Providers Care School Of Nursing Director Name Role Phone Shlomo Hu MD Primary Care Provider [phone] Thursday, Toya ARABIC LINGUIST Unavailable [phone] Shante Kumar SUPERVISOR NEWSPAPER DELIVERIES-CUTTER BARREL DRUM Unavailable Claribel Scott RN Unavailable [phone] Jess Marsh ARABIC LINGUIST Unavailable Esthela Tesfaye LAND SURVEYOR Unavailable [phone] Encounter Details Date Type Department Care Team (Late st Contact Info) Description 07/29/2024 Clinisync Result Encounter [facility] External Department Unsolicited Provider, Generic External Data Social History Tobacco Use Types Packs/Day Years [...] often do you attend chur ch or latter day services? Never 04/18/2024 Do you belong to [...] Recorded Patient Health Questionnaire-2 Score 1 06/09/2024 [facility] - Occupational [...] in a nursing home (including now)? No 03/01/2023 Housing Stability [...] in the past 12 m [facility], were you homeless or living in a nursing home (including now)? 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 Not on file Not on file documented as of this encounter Plan of Treatment Upcoming Encounters Date Type Department Care Team (Late st Contact Info) Description 04/12/2025 9:50 AM EDT Office Visit [facility] ENDOCRINOLOGY [address] [place] [address] Tanya Lozano MD [address] [place] [address] 04/20/2025 3:00 PM EDT Office Visit [facility] PODIATRY [address] [place] [phone] Sonny Rodriguez DPM 300 [facility] [address] [place] [address] 05/04/2025 2:50 PM EDT Office Visit [facility] [address] [place] [address] Sonny Rodriguez DPM 3006 [facility] [address] [place] [address] documented as of this encounter Procedures Procedure Name Priority Date/Time Associated Diagnosis Comments ECG 12-LEAD 07/29/2024 7:16 PM EST documented in this encounter Results * ECG 12 lead (07/29/2024 7:16 PM EST) 07/29/2024 7:16 PM EST Narrative [facility] - 2024 4:16 PM EST Ventricular Rate : 78 BPM Atrial Rate : 78 BPM P-R Interval : 182 ms QRS Duration : 80 ms Q-T Interval : 398 ms QTC Calculation(Bazett) : 453 ms Calculated P [place] : 50 degrees Calculated R [place] : 24 degrees Calculated T [place] : 14 degrees NORMAL SINUS RHYTHM NORMAL ECG Confirmed by NAHOMY WHITLEY, FENG ([id number]) on 2024 4:16:33 PM NAME : MELINA TAVERAS PID : [id number] : 1975 Gender : Female Race : ORD : [id number] Procedure Date : Jul 29 2024 19:16:20 Edit Date : 2024 16:16:35 Diagnosis: NORMAL SINUS RHYTHM NORMAL ECG Confirmed by FENG COREA MD ([id number]) on 2024 4:16:33 PM Test Reason : Check QT Location : 80 : G100 G100-26 Overread By : FENG COREA MD Edited By : FENG COREA MD Referred By : MARILIN HERNANDEZ Acquired by : JERRI PATEL Procedure Note Radiology, Radiologist, MD - 2024 Ventricular Rate : 78 BPM Atrial Rate : 78 BPM P-R Interval : 182 ms QRS Duration : 80 ms Q-T Interval : 398 ms QTC Calculation(Bazett) : 453 ms Calculated P [place] : 50 degrees Calculated R [place] : 24 degrees Calculated T [place] : 14 degrees NORMAL SINUS RHYTHM NORMAL ECG Confirmed by FENG COREA MD ([id number]) on 2024 4:16:33 PM NAME : MELINA TAVERAS PID : [id number] : 1975 Gender : Female Race : ORD : [id number] Procedure Date : Jul 29 2024 19:16:20 Edit Date : 2024 16:16:35 Diagnosis: NORMAL SINUS RHYTHM NORMAL ECG Confirmed by FENG COREA MD ([id number]) on 2024 4:16:33 PM Test Reason : Check QT Location : 80 : G100 G100-26 Overread By : FENG COREA MD Edited By : FENG COREA MD Referred By : MARILIN HERNANDEZ Acquired by : JERRI PATEL Generic External Data Provider ECG ORDERABLES F inal Result [facility] documented in this encounter Visit Diagnoses Not on filedocumented in this encounter Additional Health Concerns Assessment Noted Time PHQ-9 Depression Total Score: 18 024 9:42 AM EDT documented as of this encounter Care Teams School Of Nursing Director Relationship Specialty Start Date End Date Shlomo Hu MD [address] [facility] 110 [place] [address] PCP - General Internal Medicine 02/15/23 Shante Kumar, SUPERVISOR NEWSPAPER DELIVERIES-CUTTER BARREL DRUM [address] [place] [address] PCP - Denzel Commercial 07/15/24, DUKE Pittman [address] [place] [address] Licensed Practical Nurse Family Medicine 01/19/24 10/21/24 Claribel Scott, RN [address] [place] [address] Licensed Practical Nurse Family Medicine 10/21/24 12/06/24 Jess Marsh LPN [address] [place] [address] 12/06/24 Esthela Tesfaye, KIRA [address] [place] [address] Property Underwriter Family Medicine 02/03/25 documented as of this encounter
--- OUTSIDE RECORDS SUMMARY | 2025-03-28 09:12 | XMS_ITS | Encounter Summary ---
Author Organization [facility] Address [address] [place] [address] Care Team Providers Care Software Sales Manager Name Role Phone Sean Ruiz DO Primary Care Provider [phone] Jacob Sharp Unavailable Ras[address]eda Newton RD Unavailable [phone] Unavailable [phone] Fritz HENDERSON MD, Shlomo Momin Primary Care Provider [phone] Yuan Mliler MD, PhD Unavailable [phone] Source Comments In the event this information is protected by the Federal Confidentiality of Alcohol and Drug AbusePatient Records regulations: The Federal rules restrict any use of the information to criminally investigate or prosecute any alcohol or drug abuse patient.[facility] Encounter Details Date Type Department Care Team (Late st Contact Info) Description 07/30/2023 Get Medical Advice Gastroenterology [address] [id number] Provider, [facility] Appointment Social History Tobacco Use [...] care, and heating? Not hard at all 09/18/2022 PHQ-2 Answer Date Recorded PHQ-2 score 1 09/20/2022 Hunger Vital Sign Answer Date Recorded Within the past 12 months, y ou worried that your food would run out before you got the money to buy more. Never true 09/18/19 23 Within the past 12 months, t he food you bought just didn't last and you didn't have money to get more. Never true 09/18/2022 PRAPARE - Transportation Answer Date Re corded In the past 12 months, has l ack of transportation kept you from medical appointments or from getting medications? No 01/2023 In the past 12 months, has l ack of transportation kept you from meetings, work, or from getting things needed for daily living? No 09/18/2022 Housing Stability Vital Sign Answer Luis Miguel e Recorded In the last 12 months, was t here a time when you were not able to pay the mortgage or rent on time? No 09/18/2022 In the last 12 months, how many places have you lived? 1 09/18/2022 In the last 12 months, was t here a time when you did not have a steady place to sleep or slept in a half-way (including now)? No 09/18/2022 Area Deprivation Index Answer Date Reagan rded National Score (1-100), lower number is lower ri sk 63 03/05/2023 State Score (1-10), lower number is lower risk 4 03/05/2023 Data from: https://www.neighborhoodatlas.medicine.[facility].edu/. Last address used for calculation [address] [...] hearing? Answer Date of Assessment Author No 06/12/2023 1:45 PM EDT Vanna Li RN * Are you blind or do you have serious difficulty seeing, even when wearing glasses? Answer Date of Assessment Author No 06/12/2023 1:45 PM EDT Vanna Li RN * Do you have serious difficulty walking or climbing stairs? Answer Date of Assessment Author No 06/12/2023 1:45 PM EDT Vanna Li RN * Do you have difficulty dressing or bathing? Answer Date of Assessment Author No 06/12/2023 1:45 PM EDT Vanna Li RN * Because of a physical, mental, or emotional condition, do you have difficulty doing errands alone such as visiting a doctor's office or shopping? Answer Date of Assessment Author No 06/12/2023 1:45 PM EDT Vanna Li RN documented as of this encounter Mental Status * Because of a physical, mental, or emotional condition, do you have serious difficulty concentrating, remembering, or making decisions? Answer Entry Date Author No 06/12/2023 1:45 PM EDT Vanna Li RN documented in this encounter Plan of Treatment Upcoming Encounters Date Type Department Care Team (Latest Contact Info) Description 03/31/2025 11:00 AM EDT Office Visit General Surgery [address] [place] [address] Michael Mora PA-C [address] [place], [place] [phone] follow up- add on ok'd by Michael 04/07/2025 1:00 PM EDT [facility] [address] [place] [id number] Agatha Kim PSYD [address] [phone] 04/19/2025 11:00 AM EDT [facility] Neurological [place] [address] [phone] Joann Loera APRN.ESCALATOR CONSTRUCTOR [address] [place] [address] Cognitive movement issues 04/21/2025 8:30 AM EDT [facility] Nutrition Therapy [address] [phone] Tiffany Banks, RD [address] [address] [id number] f/u TF forula tolerance and hydration 05/29/2025 9:00 AM EDT [facility] Gastroenterology [address] [id number] Johanna Martinez MD [facility] [address] [place], [place] [phone] 3 month follow up 06/28/2025 10:00 AM EDT [facility] Neurology Pain [address] [place] [phone] [place] [address] [place] [address] Follow up for pain documented as of [...] documented as of this encounter Care Teams Software Sales Manager Relationship Specialty [place] [address] [place] [address] PCP - General Family Medicine 07/09/12 10/05/23 Shlomo Hu II, MD [address] [facility] 110 [place] [address] PCP - General Internal Medicine 10/06/23 Jacob Sharp [address] [place] [address] Referring 04/30/[address], [place] [address] Registered Dietitian Nutrition 06/24/[address] [facility] [place] [address] Registered Dietitian Nutrition 08/27/23 Yuan Miller MD, PhD [address] [place] [address] Surgeon General Surgery 02/03/24 documented as of this encounter
--- OUTSIDE RECORDS SUMMARY | 2025-03-28 09:12 | XMS_ITS | Encounter Summary ---
Author Organization [facility] Address [address] [facility] [place] [address] Care Team Providers Care Board Stacker Name Role Phone Shlomo Hu MD Primary Care Provider Thursday, Toya CAMPOSN Unavailable [phone] Shlomo Hu MD Unavailable [phone] Shante Kumar VESSEL BUILDER-LEAD SOFTWARE ENGINEER Unavailable Claribel Scott RN Unavailable [phone] Jess Marsh DIRECT SELLING COUNSELOR Unavailable Esthela Tesfaye BURRER OPERATOR Unavailable Encounter Details Date Type Department Care Team (Late st Contact Info) Description 06/15/2024 Abstract [facility] FM 112 [facility] 110 [place] [address] Shlomo Hu MD 112 [facility] 110 [place] [address] Social History Tobacco Use Types [...] often do you attend chur ch or confucianist services? 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 Not on file Not on file documented as of this encounter Plan of Treatment Upcoming Encounters Date Type Department Care Team (Late st Contact Info) Description 04/12/2025 9:50 AM EDT Office Visit [facility] ENDO[facility]IN[facility] [address] [place] [address] Tanya Lozano MD [address] [place] [address] 04/20/2025 3:00 PM EDT Office Visit [facility] P[facility] [address] [place] [address] Sonny Rodriguez DPM [address] [address] 05/04/2025 2:50 PM EDT Office Visit [facility] P[facility] [address] [place] [address] Sonny Rodriguez DPM [address] [address] documented as of this encounter Visit Diagnoses Not on filedocumented in this encounter Additional Health Concerns Assessment Noted Time PHQ-9 Depression Total Score: 18 024 9:42 AM EDT documented as of this encounter Care Teams Board Stacker Relationship Specialty Start Date End Date Shlomo Hu MD [address] [place] [address] PCP - General Internal Medicine 02/15/23 Shlomo Hu MD [address] [place] [address] PCP - [place] Commercial 05/15/2407/14 Shante Kumar, VESSEL BUILDER-LEAD SOFTWARE ENGINEER [address] [place] [address] PCP - Denzel Commercial 07/15/24, DUKE Pittman [address] [place] [address] Licensed Practical Nurse Family Medicine 01/19/24 10/21/24 Claribel Scott, RN [address] [place] [address] Licensed Practical Nurse Family Medicine 10/21/24 12/06/24 Jess Marsh LPN [address] [facility] [address] [place] [address] 12/06/24 Esthela Tesfaye, KIRA [address] [facility] [place] [address] Financial Report Service Sales Agent Family Medicine 02/03/25 documented as of this encounter
--- OUTSIDE RECORDS SUMMARY | 2025-03-28 09:12 | XMS_ITS | Encounter Summary ---
Author Organization [facility] Address [address] [facility] [place] [address] Care Team Providers Care Valve Steamer Name Role Phone Shlomo Hu MD Primary Care Provider Jacob Sharp GAME TESTER Unavailable Thursday, Toya KNIFE MACHINE OPERATOR Unavailable [phone] Shlomo Hu MD Unavailable [phone] Shante Kumar CARE COORDINATOR-TIRE SPOTTER Unavailable Claribel cSott RN Unavailable Jess Marsh KNIFE MACHINE OPERATOR Unavailable Esthela Tesfaye FARROWING WORKER Unavailable [phone] Reason for Visit * Reason Comments Med Refill Encounter Details Date Type Department Care Team (Late st Contact Info) Description 03/20/2024 Refill [facility] [address] [facility] 160 [place] [address] Shante Kumar, CARE COORDINATOR-TIRE SPOTTER [address] [facility] 160 [place] [address] Insomnia, unspecified type Social History Tobacco Use Types Packs/Day Years Used Date Smoking Tobacco: Never Smokeless Tobacco: Never Alcohol Use Standard Drinks/Week Comments Not Currently 0 (1 standard drink = 0.6 oz pure alcohol) Caffine intake : couple of cups per week Humiliation, Afraid, Rape, and Kick questionnair e [...] neighbors? More than three times a week 03/01/2023 How often do you get togethe r with friends or relatives? Twice a week 03/01/2023 How often do you attend chur or temple services? Patient declined 03/01/2023 Do you belong to any clubs o r organizations such as orthodoxy groups, unions, fraternal or athletic groups, or school groups? No 03/01/2023 How often do you attend meet ings of the clubs or organizations you belong to? Never 03/01/2023 Are you , , di vorced, , never , or living with a partner? 03/01/2023 AUDIT-C Answer Date Recorded Q1: How often do you have a drink containing alcohol? Never 03/01/2023 Q2: How many drinks containi ng alcohol do you have on a typical day when you are drinking? Patient does not drink Q3: How often do you have si x or more drinks on one occasion? Never 03/01/2023 Overall Financial Resource Strain (CARDIA) Answe r Date Recorded How hard is it for you to pa y for the very basics like food, housing, medical care, and heating? Somewhat hard 03/01/2023 PHQ-2 Answer Date Recorded Patient Health Questionnaire-2 Score 6 08/26/2023 [facility] - Occupational Stress Questionnaire Answer Date Recorded Do you feel stress - tense, restless, nervous, or anxious, or unable to sleep at night because your mind is troubled all the time - these days? Only a little 03/01/2023 Exercise Vital Sign Answer Date Recorde d On average, how many days pe r week do you engage in moderate to strenuous exercise (like a brisk walk)? 3 days 03/01/2023 On average, how many minutes do you engage in exercise at this level? 60 min 03/01/2023 Hunger Vital Sign Answer Date Recorded Within the past 12 months, y ou worried that your food would run out before you got the money to buy more. Patient declined Within the past 12 months, t he food you bought just didn't last and you didn't have money to get more. Patient declined PRAPARE - Transportation Answer Date Re corded In the past 12 months, has l ack of transportation kept you from medical appointments or from getting medications? No 02/12 In the past 12 months, has l ack of transportation kept you from meetings, work, or from getting things needed for daily living? No 03/01/2023 Housing Stability Vital Sign Answer [...] mortgage or rent on time? 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 Not on file Not on file documented as of this encounter Plan of Treatment Upcoming Encounters Date Type Department Care Team ([facility] st Contact Info) Description 04/12/2025 9:50 AM EDT Office Visit [facility] ENDOCRINOLOGY [address] [place] [address] Tanya Lozano MD [address] [place] [address] 04/20/2025 3:00 PM EDT Office Visit [facility] PODIATRY [address] [place] [address] Snony Rodriguez DPM 3006 [facility] 5 [place] [address] 05/04/2025 2:50 PM EDT Office Visit [facility] PODIATRY [address] [place] [address] Sonny Rodriguez DPM 3006 [facility] 5 [place] [address] documented as of this encounter Visit Diagnoses Diagnosis Insomnia, unspecified type documented in this encounter Additional Health Concerns Assessment Noted Time PHQ-9 Depression Total Score: 9 08/26/20 23 1:30 PM EST documented as of this encounter Care Teams Valve Steamer Relationship Specialty Start Date End Date Shlomo Hu MD [address] [place] [address] PCP - General Internal Medicine 02/15/23 [place] [address] [place] [address] PCP - [place] Commercial 08/14/23 Shlomo Hu MD [address] [place] [address] PCP - [place] Commercial 05/15/2407/14 Shante Kumar, CARE COORDINATOR-TIRE SPOTTER [address] [facility] 160 [place] [address] PCP - [place] Commercial 07/15/24 5 ThursdayToya LPN [address] [place] [address] Licensed Practical Nurse Family Medicine 01/19/24 10/21/24 Claribel Scott, PIETRO [address] [place] [address] Licensed Practical Nurse Family Medicine 10/21/24 12/06/24 Jess Marsh LPN [address] [facility] 110 [place] [address] 12/06/24 Esthela Tesfaye, FARROWING WORKER [address] [place] [address] Air Traffic Control Manager Family Medicine 02/03/25 documented as of this encounter
--- OUTSIDE RECORDS SUMMARY | 2025-03-28 09:12 | XMS_ITS | Encounter Summary ---
Author Organization [facility] Address [address] [place] [address] Care Team Providers Care Claims Administrator Name Role Phone Sean Ruiz DO Primary Care Provider [phone] Jacob Sharp Unavailable [address]eda Newton RD Unavailable [phone] Unavailable [phone] Fritz HENDERSON MD, Shlomo B Primary Care Provider [phone] Yuan Miller MD, PhD Unavailable [phone] Source Comments In the event this information is protected by the Federal Confidentiality of Alcohol and Drug AbusePatient Records regulations: The Federal rules restrict any use of the information to criminally investigate or prosecute any alcohol or drug abuse patient.[facility] Encounter Details Date Type Department Care Team (Late st Contact Info) Description 11/13/2016 Patient Msg Obstetrics/Gynecolog y [address] [address] [address] [place] Zamudio, INTERIOR DESIGN PROFESSIONAL.GEAR ROOM KEEPER [address] JUNE TRUONG - [place], [place] [id number] RE: Appointment Cancellation Request Social History Tobacco Use Types Packs/Day [...] Entry Date Author No 05/01/2014 10:10 AM Li Etienne LPN documented in this encounter Plan of Treatment Upcoming Encounters Date Type Department Care Team (Latest Contact Info) Description 03/31/2025 11:00 AM EDT Office Visit General Surgery [address] [place] [address] Michael Mora PA-C [address] [place] [address] follow up- add on ok'd by Michael 04/07/2025 1:00 PM EDT [facility] Neurological [facility] [address] [phone] Agatha Kim PSYD [address] [place] [address] 04/19/2025 11:00 AM EDT [facility] Neurological [facility] [address] [phone] Joann Loera APRN.GEAR ROOM KEEPER [address] [place] [address] Cognitive movement issues 04/21/2025 8:30 AM T [facility] Nutrition Therapy [address] [phone] [address] [place] [id number] f/u TF forula tolerance and hydration 05/29/2025 9:00 AM [facility] Gastroenterology [address] [id number] Johanna Martinez MD [facility] [address] [place], [place] [phone] 3 month follow up 06/28/2025 10:00 AM T [facility] Neurology Pain [address] [phone] [place] [address] [place] [address] Follow up for pain documented as of [...] documented as of this encounter Care Teams Claims Administrator Relationship Specialty [place] [address] [place] [address] PCP - General Family Medicine 07/09/12 10/05/23 Shlomo Hu II, MD [address] [facility] 110 [place] [address] PCP - General Internal Medicine 10/06/23 Jacob Sharp [address] [address] [id number] Referring 04/30/[address], [place] [address] Registered Dietitian Nutrition 06/24/[address] [place] [address] Registered Dietitian Nutrition 08/27/23 Yuan Miller MD, PhD [address] [place] [address] Surgeon General Surgery 02/03/24 documented as of this encounter
--- OUTSIDE RECORDS SUMMARY | 2025-03-28 09:12 | XMS_ITS | Encounter Summary ---
Author Organization [facility] Address [address] [place] [address] Care Team Providers Care Supervisor Rolling Room Name Role Phone Jacob Sharp Unavailable Rasheeda Newton RD Unavailable [phone] Unavailable [phone] Fritz HENDERSON MD, Shlomo Momin Primary Care Provider [phone] Yuan Miller MD, PhD Unavailable [phone] Source Comments In the event this information is protected by the Federal Confidentiality of Alcohol and Drug AbusePatient Records regulations: The Federal rules restrict any use of the information to criminally investigate or prosecute any alcohol or drug abuse patient.[facility] Encounter Details Date Type Department Care Team (Late st Contact Info) Description 08/17/2024 Get Medical Advice General Surgery [address] [place] [address] Michael Mora PA-C [address] [place] [address] Infection Social History Tobacco Use Types Packs/Day Years Used Date Smoking Tobacco: Never Smokeless Tobacco: Never Alcohol Use Standard Drinks/Week Comments Not Currently 0 (1 standard drink = 0.6 oz pur e alcohol) [facility] Utilities Answer Date Recorded In [...] PHQ-2 Answer Date Recorded PHQ-2 score 6 08/08/2024 Hunger Vital Sign Answer Date Recorded Within [...] slept in a alf (including now)? No 02/16/2024 Housing Stability Vital [...] living in a alf (including now)? No 08/01/2024 Area Deprivation Index Answer Date Reagan rded National Score (1-100), lower number is lower ri sk 63 03/05/2023 State Score (1-10), lower number is lower risk 4 03/05/2023 Data from: https://www.neighborhoodatlas.medicine.[facility]/. Last address used for calculation [address] 03/05/2023 Comments No [...] AM EDT Office Visit General Surgery [address] [id number] Michael Mora PA-C [address] [place] [address] follow up- add on ok'd by Michael 04/07/2025 1:00 PM EDT [facility] [address] [place] [address] Agatha Kim PSYD [address] [place] [address] 04/19/2025 11:00 AM EDT [facility] [address] [place] [address] Joann Loera APRN.AQUATIC CENTRE MANAGER [address] [id number] Cognitive movement issues 04/21/2025 8:30 AM EDT [facility] Nutrition Therapy [address] [phone] Tiffany Banks, RD [address] [place] [address] f/u TF forula tolerance and hydration 05/29/2025 9:00 AM EDT [facility] Gastroenterology [address] [phone] Johanna Martinez MD [facility] [address] [place], [place] [phone] 3 month follow up 06/28/2025 10:00 AM EDT [facility] Neurology Pain [address] [place] [address] [place] [address] [place] [address] Follow up for pain documented as of this encounter Visit Diagnoses Not on filedocumented in this encounter Care Teams Supervisor Rolling Room Relationship Specialty Start Date End Date Shlomo Hu II, MD [address] [facility] [address] [place] [address] PCP - General Internal Medicine 10/06/23 Jacob Sharp [address] [phone] Referring 04/30/[address] [place] [phone] Registered Dietitian Nutrition 06/24/[address] [place] [address] Registered Dietitian Nutrition 08/27/23 Yuan Miller MD, PhD [address] [place] [address] Surgeon General Surgery 02/03/24 documented as of this encounter
--- OUTSIDE RECORDS SUMMARY | 2025-03-28 09:12 | XMS_ITS | Encounter Summary ---
Author Organization [facility] Address [address] [facility] [place] [address] Care Team Providers Care Internal Sales Name Role Phone Shlomo Hu MD Primary Care Provider Jacob Sharp PHOTOLETTERING MACHINE OPERATOR Unavailable Thursday, Toya AFRICAN HISTORY PROFESSOR Unavailable [phone] Shlomo Hu MD Unavailable [phone] Shante Kumar ROLLING MACHINE OPERATOR-STRUCTURAL IRON ERECTOR Unavailable Claribel Scott RN Unavailable Jess Marsh AFRICAN HISTORY PROFESSOR Unavailable Esthela Tesfaye APPLIANCE SERVICER Unavailable Reason for Visit * Reason Comments Med Refill Encounter Details Date Type Department Care Team (Late st Contact Info) Description 04/11/2024 Refill [facility] 112 [facility] 110 [place] [address] Shlomo Hu MD 112 [facility] 110 [place], [place] [address] Social History Tobacco Use Types Packs/Day Years [...] week 03/01/2023 How often do you attend [facility] or congregation services? 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 Not on file Not on file documented as of this encounter Miscellaneous Notes * Telephone Encounter - Shima Dee MA - 04/12/2024 1:11 PM EDT Not prescribed documented in this encounter Plan of Treatment Upcoming Encounters Date Type Department Care Team (Late st Contact Info) Description 04/12/2025 9:50 AM EDT Office Visit [facility] [address] [place] [address] Tanya Lozano MD [address] [place] [address] 04/20/2025 3:00 PM EDT Office Visit [facility] POD[facility]AT[facility] [address] [place] [address] Snony Rodriguez DPM 3006 [facility] 5 [place] [address] 05/04/2025 2:50 PM EDT Office Visit [facility] [address] [place] [address] Sonny Rodriguez DPM [address] [address] documented as of this encounter Visit Diagnoses Not on filedocumented in this encounter Additional Health Concerns Assessment Noted Time PHQ-9 Depression Total Score: 9 08/26/20 23 1:30 PM EST documented as of this encounter Care Teams Internal Sales Relationship Specialty Start Date End Date Shlomo Hu MD [address] [place] [address] PCP - General Internal Medicine 02/15/23 [place] [address] [place] [address] PCP - [place] [employer] 08/14/23 Shlomo Hu MD [address] [facility] 110 [place] [address] PCP - [place] [employer] 05/15/2407/14 Shante Kumar, ROLLING MACHINE OPERATOR-STRUCTURAL IRON ERECTOR [address] [facility] 160 [place] [address] PCP - [place] [employer] 07/15/24 ThursdayToya LPN [address] [email or web address] [address] [place] [address] Licensed Practical Nurse Family Medicine 01/19/24 10/21/24 Claribel Scott, PIETRO [address] [place] [address] Licensed Practical Nurse Family Medicine 10/21/24 12/06/24 Jess Marsh LPN [address] [facility] 110 [place] [address] 12/06/24 Esthela Tesfaye LSW [address] [place] [address] Skip Tender Family Medicine 02/03/25 documented as of this encounter
--- OUTSIDE RECORDS SUMMARY | 2025-03-28 09:12 | XMS_ITS | Encounter Summary ---
Author Organization [facility] Address [address] [facility] [place] [address] Care Team Providers Care Forms Builder Name Role Phone Shlomo Hu MD Primary Care Provider Thursday, Toya CAMPOSN Unavailable [phone] Shlomo Hu MD Unavailable [phone] Shante Kumar HEAD MACHINE FEEDER-PLATE ROLLER Unavailable Claribel Scott RN Unavailable Jess Marsh COLLECTION SYSTEMS TECHNICIAN Unavailable Esthela Tesfaye COMPUTER ENGINEERING TECHNICIAN Unavailable Encounter Details Date Type Department Care Team (Late st Contact Info) Description 06/15/2024 Abstract [facility] 112 [facility] 110 [place] [address] Shlomo Hu MD 112 [facility] 110 [place] [address] Social History Tobacco Use Types [...] often do you attend chur ch or hoahaoism services? 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 Not on file Not on file documented as of this encounter Plan of Treatment Upcoming Encounters Date Type Department Care Team (Late st Contact Info) Description 04/12/2025 9:50 AM EDT Office Visit [facility] ENDO[facility] [address] [place] [address] Tanya Lozano MD [address] [place] [address] 04/20/2025 3:00 PM EDT Office Visit [facility] [address] [place] [address] Sonny Rodriguez DPM [address] [address] 05/04/2025 2:50 PM EDT Office Visit [facility] [address] [place] [address] Sonny Rodriguez DPM [address] [address] documented as of this encounter Visit Diagnoses Not on filedocumented in this encounter Additional Health Concerns Assessment Noted Time PHQ-9 Depression Total Score: 18 024 9:42 AM EDT documented as of this encounter Care Teams Forms Builder Relationship Specialty Start Date End Date Shlomo Hu MD [address] [place] [address] PCP - General Internal Medicine 02/15/23 Shlomo Hu MD [address] [place] [address] PCP - [place] [employer] 05/15/2407/14 Shante Kumar, HEAD MACHINE FEEDER-PLATE ROLLER [address] [place] [address] PCP - [place] [employer] 07/15/24, DUKE Pittman [address] [place] [address] Licensed Practical Nurse Family Medicine 01/19/24 10/21/24 Claribel Scott, RN [address] [place] [address] Licensed Practical Nurse Family Medicine 10/21/24 12/06/24 Jess Marsh LPN [address] [facility] 110 [place] [address] 12/06/24 Esthela Tesfaye, KIRA [address] [facility] [address] Ingot Weigher Family Medicine 02/03/25 documented as of this encounter
--- OUTSIDE RECORDS SUMMARY | 2025-03-28 09:12 | XMS_ITS | Encounter Summary ---
Author Organization [facility] Address [address] [place] [address] Care Team Providers Care Linen Worker Name Role Phone Jacob Sharp Unavailable Rasheeda Newton RD Unavailable [phone] Unavailable [phone] Fritz HENDERSON MD, Shlomo Momin Primary Care Provider [phone] Yuan Miller MD, PhD Unavailable [phone] Source Comments In the event this information is protected by the Federal Confidentiality of Alcohol and Drug AbusePatient Records regulations: The Federal rules restrict any use of the information to criminally investigate or prosecute any alcohol or drug abuse patient.[facility] Encounter Details Date Type Department Care Team (Late st Contact Info) Description 08/17/2024 Get Medical Advice General Surgery [address] [place] [address] Michael Mora PA-C [address] [place] [address] Infection feeding tube Social History Tobacco Use Types Packs/Day Years Used Date Smoking Tobacco: Never Smokeless Tobacco: Never Alcohol Use Standard Drinks/Week Comments Not Currently 0 (1 standard drink = 0.6 oz pur e alcohol) [facility] Utilities Answer Date Recorded In the [...] any time in the past 12 m [facility], were you homeless or living in a senior care (including now)? No 08/01/2024 Area Deprivation Index Answer Date Reagan rded National Score (1-100), lower number is lower ri sk 63 03/05/2023 State Score (1-10), lower number is lower risk 4 03/05/2023 Data from: https://www.neighborhoodatlas.medicine.[facility]/. Last address used for calculation [address] 03/05/2023 Comments [...] AM EDT Office Visit General Surgery [address] [phone] Michael Mora PA-C [address] [phone] follow up- add on ok'd by Michael 04/07/2025 1:00 PM EDT [facility]rological [facility] [address] [phone] Agatha Kim PSYD [address] [phone] 04/19/2025 11:00 AM EDT [facility] Neurological [facility] [address] [phone] Joann Loera APRN.MOLD BLOWER [address] [phone] Cognitive movement issues 04/21/2025 8:30 AM EDT [facility] Nutrition Therapy [address] [phone] Tiffany Banks, RD [address] [phone] f/u TF forula tolerance and hydration 05/29/2025 9:00 AM EDT [facility] Gastroenterology [address] [phone] Johanna Martinez MD [facility] [address] [place] [address] 3 month follow up 06/28/2025 10:00 AM EDT [facility] Neurology Pain [address] [address] [phone] [place] [address] [address] [phone] Follow up for pain documented as of this encounter Visit Diagnoses Not on filedocumented in this encounter Care Teams Linen Worker Relationship Specialty Start Date End Date Shlomo Hu II, MD [address] [place] [address] [place] [address] PCP - General Internal Medicine 10/06/23 Jacob Sharp [address] [phone] Referring 04/30/[address] [place] [phone] Registered Dietitian Nutrition 06/24/[address] [place] [address] Registered Dietitian Nutrition 08/27/23 Yuan Miller MD, PhD [address] [place] [address] Surgeon General Surgery 02/03/24 documented as of this encounter
--- OUTSIDE RECORDS SUMMARY | 2025-03-28 09:12 | XMS_ITS | Encounter Summary ---
Author Organization [facility] Address [address] [place] [address] Care Team Providers Care Clean In Places Operator Name Role Phone Shlomo Hu MD Primary Care Provider [phone] Jacob Sharp DIRECTOR NURSING SERVICE Unavailable [phone] Thursday, Toya MANAGER PATHOLOGY Unavailable [phone] Shlomo Hu MD Unavailable [phone] Shante Kumar EMPLOYMENT PROGRAM REPRESENTATIVE-SUBMARINE CABLE EQUIPMENT TECHNICIAN Unavailable Claribel Scott RN Unavailable Jess Marsh MANAGER PATHOLOGY Unavailable Esthela Tesfaye DISTRICT ASSOCIATE JUDGE Unavailable [phone] Encounter Details Date Type Department Care Team (Late st Contact Info) Description 04/07/2024 Clinisync Result Encounter [facility] External Department Unsolicited [...] How often do you attend chur or confucianist services? Patient declined 03/01/2023 Do you belong [...] Health Questionnaire-2 Score 6 08/26/2023 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 Not on file Not on file documented as of this encounter Plan of Treatment Upcoming Encounters Date Type Department Care Team (Late st Contact Info) Description 04/12/2025 9:50 AM EDT Office Visit [facility] ENDO[facility]IN[facility] [address] [place] [address] Tanya Lozano MD [address] [place] [address] 04/20/2025 3:00 PM EDT Office Visit [facility] [address] [place] [address] [place] [address] Sonny Rodriguez, DPM 3006 [facility] 5 [place] [address] 05/04/2025 2:50 PM EDT Office Visit [facility] [address] [place] [address] [place] [address] Sonny Rodriguez, DPM [address] [place] [address] documented as of this encounter Procedures Procedure Name Priority Date/Time Associated Diagnosis Comments XR ABDOMEN 1V SUPINE 04/07/2024 3:07 PM EDT documented in this encounter Results * XR ABDOMEN 1V SUPINE (04/07/2024 3:07 PM EDT) Anatomical Region Laterality Modality Other 04/07/2024 3:07 PM EDT Narrative 04/08/2024 11:51 AM EDT * * *Final Report* * * DATE OF EXAM: Apr 07 2024 3:07PM JOSE [id number] - XR ABDOMEN 1V SUPINE / PROCEDURE REASON: Chronic diarrhea * * * * Physician Interpretation * * * * HISTORY: Chronic diarrhea TECHNIQUE: 2 views of the abdomen and pelvis. COMPARISON: X-ray dated 01/04/[address] abdomen/pelvis dated 01/06/24 RESULT: Surgical clips are noted in the right upper quadrant and left midabdomen. Surgical staple line is noted in left mid abdomen. No evidence of bowel obstruction or radiopaque renal stones. Vascular calcification is noted in the right abdomen and pelvis. Stool is noted in the right colon. IMPRESSION: No evidence of bowel obstruction. Stool is noted in the right colon. General Warehouse Associate: [facility] Transcribe Date/Time: Apr 08 2024 11:37A Dictated by : TREY STYLES MD This examination was interpreted and the report reviewed and electronically signed by: TREY STYLES MD on Apr 08 2024 11:49AM EST [id number]^SI^ACN Procedure Note Radiology, Radiologist, - 04/08/2024 * * *Final Report* * * DATE OF EXAM: Apr 07 2024 3:07PM CHX [id number] - XR ABDOMEN 1V SUPINE / PROCEDURE REASON: Chronic diarrhea * * * * Physician Interpretation * * * * HISTORY: Chronic diarrhea TECHNIQUE: 2 views of the abdomen and pelvis. COMPARISON: X-ray dated 01/04/[address] abdomen/pelvis dated 01/06/24 RESULT: Surgical clips are noted in the right upper quadrant and left midabdomen. Surgical staple line is noted in left mid abdomen. No evidence of bowel obstruction or radiopaque renal stones. Vascular calcification is noted in the right abdomen and pelvis. Stool is noted in the right colon. IMPRESSION: No evidence of bowel obstruction. Stool is noted in the right colon. General Warehouse Associate: [facility] Transcribe Date/Time: Apr 08 2024 11:37A Dictated by : TREY STYLES MD This examination was interpreted and the report reviewed and electronically signed by: TREY STYLES MD on Apr 08 2024 11:49AM EST [id number]^ACN Generic External Data Provider [facility] Final Result documented in this encounter Visit Diagnoses Not on filedocumented in this encounter Additional Health Concerns Assessment Noted Time PHQ-9 Depression Total Score: 9 08/26/20 23 1:30 PM EST documented as of this encounter Care Teams Clean In Places Operator Relationship Specialty Start Date End Date Shlomo Hu MD [address] [facility] 110 [place] [address] PCP - General Internal Medicine 02/15/23 [place] [address] [place] [address] PCP - [place] [employer] 08/14/23 Shlomo Hu MD [address] [facility] [address] [place] [address] PCP - [place] [employer] 05/15/2407/14 Shante Kumar, EMPLOYMENT PROGRAM REPRESENTATIVE-SUBMARINE CABLE EQUIPMENT TECHNICIAN [address] [facility] [address] [place] [address] PCP - [place] [employer] 07/15/24 ThursdayToya LPN [address] [facility] 110 [place] [address] Licensed Practical Nurse Family Medicine 01/19/24 10/21/24 Claribel Scott, PIETRO [address] [place] [address] Licensed Practical Nurse Family Medicine 10/21/24 12/06/24 Jess Marsh LPN [address] [facility] 110 [place] [address] 12/06/24 Esthela Tesfaye LSW [address] [place] [address] Reference Archivist Family Medicine 02/03/25 documented as of this encounter
--- OUTSIDE RECORDS SUMMARY | 2025-03-28 09:12 | XMS_ITS | Encounter Summary ---
Author Organization [facility] Address [address] [facility] [place] [address] Care Team Providers Care Blasting Clay Miner Name Role Phone Shlomo Hu MD Primary Care Provider Jacob Sharp EQUINE INTERNSHIP Unavailable Thursday, Toya CENTRIFUGAL STATION OPERATOR Unavailable [phone] Shlomo Hu MD Unavailable [phone] Shante Kumar WICK TENDER-DRIVER UTILITY WORKER Unavailable Claribel Scott RN Unavailable Maximo Jess CENTRIFUGAL STATION OPERATOR Unavailable Esthela Tesfaye BOBTAIL DRIVER Unavailable Encounter Details Date Type Department Care Team (Late st Contact Info) Description 03/15/2024 Abstract [facility] 112 [facility] 110 [place] [address] Shlomo Hu MD 112 [facility] 110 [place] [address] Social History Tobacco Use Types [...] week 03/01/2023 How often do you attend [facility] or sikh services? 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 Not on file Not on file documented as of this encounter Plan of Treatment Upcoming Encounters Date Type Department Care Team (Late st Contact Info) Description 04/12/2025 9:50 AM EDT Office Visit [facility] ENDO[facility] [address] [place] [address] Tanya Lozano MD [address] [place] [address] 04/20/2025 3:00 PM EDT Office Visit [facility] POD[facility] [address] [place] [address] Sonny Rodriguez DPM [address] [address] 05/04/2025 2:50 PM EDT Office Visit [facility] [address] [place] [address] Sonny Rodriguez DPM [address] [address] documented as of this encounter Visit Diagnoses Not on filedocumented in this encounter Additional Health Concerns Assessment Noted Time PHQ-9 Depression Total Score: 9 08/26/20 23 1:30 PM EST documented as of this encounter Care Teams Blasting Clay Miner Relationship Specialty Start Date End Date Shlomo Hu MD [address] [place] [address] PCP - General Internal Medicine 02/15/23 [place] [address] [place] [address] PCP - [place] Mckeon 08/14/23 Shlomo Hu MD [address] [place] [address] PCP - [place] [employer] 05/15/2407/14 Shante Kumar, WICK TENDER-DRIVER UTILITY WORKER [address] [place] [address] PCP - [place] [employer] 07/15/24 ThursdayToya LPN [address] [place] [address] Licensed Practical Nurse Family Medicine 01/19/24 10/21/24 Claribel Scott, RN [address] [place] [address] Licensed Practical Nurse Family Medicine 10/21/24 12/06/24 Jess Marsh LPN [address] [facility] [address] [place] [address] 12/06/24 Esthela Tesfaye, KIRA [address] [place] [address] Antique Finisher Family Medicine 02/03/25 documented as of this encounter
--- OUTSIDE RECORDS SUMMARY | 2025-03-28 09:12 | XMS_ITS | Encounter Summary ---
Author Organization [facility] Address [address] [place] [address] Care Team Providers Care Fence Making Machine Operator Name Role Phone Sean Ruiz DO Primary Care Provider [phone] Jacob Sharp Unavailable Rasheeda Newton RD Unavailable [phone] Unavailable [phone] Fritz HENDERSON MD, Shlomo B Primary Care Provider [phone] Yuan Miller MD, PhD Unavailable [phone] Source Comments In the event this information is protected by the Federal Confidentiality of Alcohol and Drug AbusePatient Records regulations: The Federal rules restrict any use of the information to criminally investigate or prosecute any alcohol or drug abuse patient.[facility] Encounter Details Date Type Department Care Team (Late st Contact Info) Description 07/21/2016 Patient Msg Endocrinology 5001 [place] [address] Tai Dolan MD 3909 [facility] [address] [place] [address] RE: Request an Appointment Social History Tobacco [...] AM EDT Office Visit General Surgery 9300 [place] [address] Michael Mora PA-C [address] [place] [address] follow up- add on ok'd by Michael 04/07/2025 1:00 PM EDT [facility] Neurological Jew [address] [place] [address] Agatha Kim PSYD [address] [place] [address] 04/19/2025 11:00 AM EDT [facility] Neurological Jew [address] [place] [address] Joann Loera APRN.ENTERTAINMENT MUSICIAN 9500 [place] [address] Cognitive movement issues 04/21/2025 8:30 AM EDT [facility] Nutrition Therapy [address] [place] [id number] Tiffany Banks, RD [address] [place] [id number] f/u TF forula tolerance and hydration 05/29/2025 9:00 AM EDT [facility] Gastroenterology [address] [place] [id number] Johanna Martinez MD [facility] [address] [place], [place] [id number] 3 month follow up 06/28/2025 10:00 AM EDT [facility] Neurology Pain [address] [place] [id number] [place] [address] [place] [id number] Follow up for pain documented as of [...] documented as of this encounter Care Teams Fence Making Machine Operator Relationship Specialty [place] [address] [place] [address] PCP - General Family Medicine 07/09/12 10/05/23 Shlomo Hu II, MD [address] [facility] 110 [place] [address] PCP - General Internal Medicine 10/06/23 Jacob Sharp [address] [place] [address] Referring 04/30/[address] [id number] Registered Dietitian Nutrition 06/24/[address] [place] [address] Registered Dietitian Nutrition 08/27/23 Yuan Miller MD, PhD [address] [place] [address] Surgeon General Surgery 02/03/24 documented as of this encounter
--- OUTSIDE RECORDS SUMMARY | 2025-03-28 09:12 | XMS_ITS | Encounter Summary ---
Author Organization [facility] Address [address] [place] [address] Care Team Providers Care Child Care Specialist Name Role Phone Sean Ruiz DO Primary Care Provider [phone] Jacob Sharp Unavailable Rasheeda Newton RD Unavailable [phone] Unavailable [phone] Fritz HENDERSON MD, Shlomo Momin Primary Care Provider [phone] Yuan Miller MD, PhD Unavailable [phone] Source Comments In the event this information is protected by the Federal Confidentiality of Alcohol and Drug AbusePatient Records regulations: The Federal rules restrict any use of the information to criminally investigate or prosecute any alcohol or drug abuse patient.[facility] Encounter Details Date Type Department Care Team (Late st Contact Info) Description 07/14/2013 Patient Msg Medical Records [address] [place] [address] Provider, Ccf RE: Request an Appointment Social [...] AM EDT Office Visit General Surgery 9300 [place] [address] Michael Mora PA-C [address] [place] [phone] follow up- add on ok'd by Michael 04/07/2025 1:00 PM EDT [facility]rological [facility] [address] [place] [address] Agatha Kmi PSYD [address] [place] [id number] 04/19/2025 11:00 AM EDT [facility] [address] [place] [phone] Joann Loera APRN.EQUITIES TRADER 9500 [place] [address] Cognitive movement issues 04/21/2025 8:30 AM EDT [facility] Nutrition Therapy [address] [place] [address] Tiffany Banks, RD [address] [place] [phone] f/u TF forula tolerance and hydration 05/29/2025 9:00 AM EDT [facility] Gastroenterology [address] [place] [phone] Johanna Martinez MD [facility] [address] [place] [address] 3 month follow up 06/28/2025 10:00 AM EDT [facility] Neurology Pain [address] [facility] [place] [address] [place] [address] [place] [address] Follow up for pain documented as of [...] documented as of this encounter Care Teams Child Care Specialist Relationship Specialty [place] [address] [place] [address] PCP - General Family Medicine 07/09/12 10/05/23 Shlomo Hu II, MD 112 [facility] 110 [place] [address] PCP - General Internal Medicine 10/06/23 Jacob Sharp [address] [place] [address] Referring 04/30/[address] [place] [phone] Registered Dietitian Nutrition 06/24/[address] [place] [address] Registered Dietitian Nutrition 08/27/23 Yuan Miller MD, PhD 9509 [place] [address] Surgeon General Surgery 02/03/24 documented as of this encounter
--- OUTSIDE RECORDS SUMMARY | 2025-03-28 09:12 | XMS_ITS | Encounter Summary ---
Author Organization [facility] Address [address] [facility] [place] [address] Care Team Providers Care Hand Developer Name Role Phone Shlomo Hu MD Primary Care Provider Jacob Sharp TERMINAL OPERATIONS MANAGER Unavailable [phone] Thursday, Toya VOLUNTEER ASSISTANT Unavailable [phone] Shlomo Hu MD Unavailable [phone] Shante Kumar PROCESS CONSULTANT-DATA MANAGEMENT Unavailable Claribel Scott RN Unavailable [phone] Maximo Jess VOLUNTEER ASSISTANT Unavailable Esthela Tesfaye CHERRY PICKER OPERATOR Unavailable [phone] Encounter Details Date Type Department Care Team (Late st Contact Info) Description 03/23/2024 Abstract [facility] 112 [facility] 110 [place] [address] Shlomo Hu MD 112 [facility] 110 [place] [address] Social History Tobacco Use Types [...] week 03/01/2023 How often do you attend [facility] or pentecostal services? 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 Not on file Not on file documented as of this encounter Plan of Treatment Upcoming Encounters Date Type Department Care Team (Late st Contact Info) Description 04/12/2025 9:50 AM EDT Office Visit [facility] ENDOCRINOLOGY [address] [place] [address] Tanya Lozano MD [address] [place] [address] 04/20/2025 3:00 PM EDT Office Visit [facility] PODIATRY [address] [place] [address] Sonny Rodriguez DPM [address] [address] 05/04/2025 2:50 PM EDT Office Visit [facility] P[facility] [address] [place] [address] Sonny Rodriguez DPM [address] [address] documented as of this encounter Visit Diagnoses Not on filedocumented in this encounter Additional Health Concerns Assessment Noted Time PHQ-9 Depression Total Score: 9 08/26/20 23 1:30 PM EST documented as of this encounter Care Teams Hand Developer Relationship Specialty Start Date End Date Shlomo Hu MD [address] [place] [address] PCP - General Internal Medicine 02/15/23 [place] [address] [place] [address] PCP - Denzel Mckeon 08/14/23 Shlomo Hu MD [address] [place] [address] PCP - [place] [employer] 05/15/2407/14 Shante Kumar, PROCESS CONSULTANT-DATA MANAGEMENT [address] [place] [address] PCP - [place] [employer] 07/15/24 ThursdayToya LPN [address] [place] [address] Licensed Practical Nurse Family Medicine 01/19/24 10/21/24 Claribel Scott, RN [address] [place] [address] Licensed Practical Nurse Family Medicine 10/21/24 12/06/24 Jess Marsh LPN [address] [facility] 110 [place] [address] 12/06/24 Esthela Tesfaye, KIRA 1479 [place] [address] End Trimmer Family Medicine 02/03/25 documented as of this encounter
--- OUTSIDE RECORDS SUMMARY | 2025-03-28 09:12 | XMS_ITS | Encounter Summary ---
Author Organization [facility] Address [address] [place] [address] Care Team Providers Care Manager Sourcing Name Role Phone Jacob Sharp Unavailable Rasheeda Newton RD Unavailable [phone] Unavailable [phone] Fritz HENDERSON MD, Shlomo Momin Primary Care Provider [phone] Yuan Miller MD, PhD Unavailable [phone] Source Comments In the event this information is protected by the Federal Confidentiality of Alcohol and Drug AbusePatient Records regulations: The Federal rules restrict any use of the information to criminally investigate or prosecute any alcohol or drug abuse patient.[facility] Encounter Details Date Type Department Care Team (Late st Contact Info) Description 08/01/2024 Patient Msg Neurology [address] [place], [place] [id number] Provider, Ccf Ketamine cancelled for next week Social History Tobacco Use Types Packs/Day Years Used Date Smoking Tobacco: Never Smokeless Tobacco: Never Alcohol Use Standard Drinks/Week Comments Not Currently 0 (1 standard drink = 0.6 oz pur e alcohol) [facility] Utilities Answer Date Recorded In the past [...] any time in the past 12 m [facility], were you homeless or living in a fpc (including now)? No 08/01/2024 Area Deprivation Index Answer Date Reagan rded National Score (1-100), lower number is lower ri sk 63 03/05/2023 State Score (1-10), lower number is lower risk 4 03/05/2023 Data from: https://www.neighborhoodatlas.[facility]/. Last address used for calculation [address] 03/05/2023 Comments No Sex [...] hearing? Answer Date of Assessment Author No 07/10/2024 3:08 PM Lubna Dang RN * Are you blind or do you have serious difficulty seeing, even when wearing glasses? Answer Date of Assessment Author No 07/10/2024 3:08 PM Lubna Dang RN * Do you have serious difficulty walking or climbing stairs? Answer Date of Assessment Author No 07/10/2024 3:08 PM Lubna Dang RN * Do you have difficulty dressing or bathing? Answer Date of Assessment Author No 07/10/2024 3:08 PM Lubna Dang RN * Because of a physical, mental, or emotional condition, do you have difficulty doing errands alone such as visiting a doctor's office or shopping? Answer Date of Assessment Author No 07/10/2024 3:08 PM Lubna Dang RN documented as of this encounter Mental Status * Because of a physical, mental, or emotional condition, do you have serious difficulty concentrating, remembering, or making decisions? Answer Entry Date Author No 07/10/2024 3:08 PM Lubna Dang RN documented in this encounter Miscellaneous Notes * Telephone Encounter - Lise Sandra - 08/01/2024 4:34 PM EST Patient phones to reschedule ketamine infusions, please advise. documented in this encounter Plan of Treatment Upcoming Encounters Date Type Department Care Team (Latest Contact Info) Description 03/31/2025 11:00 AM EDT Office Visit General Surgery [address] [place] [address] Michael Mora PA-C [address] [place] [phone] follow up- add on ok'd by Michael 04/07/2025 1:00 PM EDT [facility] Neurological Scientologist [address] [place] [address] Agatha Kim PSYD [address] [place] [phone] 04/19/2025 11:00 AM EDT [facility] Neurological Scientologist [address] [place] [phone] Joann Loera APRN.FIELD TECH [address] [place] [phone] Cognitive movement issues 04/21/2025 8:30 AM EDT [facility] Nutrition Therapy [address] [place] [address] Tiffany Banks, RD [address] [place] [phone] f/u TF forula tolerance and hydration 05/29/2025 9:00 AM EDT [facility] Gastroenterology [address] [place] [address] Johanna Martinez MD [facility] [address] [place] [address] 3 month follow up 06/28/2025 10:00 AM EDT [facility] Neurology Pain [address] [place] [id number] [place] [address] [place] [phone] Follow up for pain documented as of this encounter Visit Diagnoses Not on filedocumented in this encounter Care Teams Manager Sourcing Relationship Specialty Start Date End Date Shlomo Hu II, MD 112 [facility] 110 [place] [address] PCP - General Internal Medicine 10/06/23 Jacob Sharp [address] [place] [id number] Referring 04/30/[address] [place] [phone] Registered Dietitian Nutrition 06/24/[address] [place] [phone] Registered Dietitian Nutrition 08/27/23 Yuan Miller MD, PhD [address] [place] [address] Surgeon General Surgery 02/03/24 documented as of this encounter
--- OUTSIDE RECORDS SUMMARY | 2025-03-28 09:12 | XMS_ITS | Encounter Summary ---
Author Organization [facility] Address [address] [place] [address] Care Team Providers Care Foreman Shipping Department Name Role Phone Shlomo Hu MD Primary Care Provider [phone] Thursday, Toya COUNSELING SPECIALIST Unavailable [phone] Shante Kumar HEAVY ANTIARMOR [employer] INFANTRYMAN-SERVICE AND REPAIR SUPERVISOR Unavailable Claribel Scott RN Unavailable [phone] Jess Marsh COUNSELING SPECIALIST Unavailable Esthela Tesfaye PROSTHODONTIST/OWNER Unavailable [phone] Encounter Details Date Type Department Care Team (Late st Contact Info) Description 07/25/2024 Clinisync Result Encounter [facility] External Department Unsolicited [...] often do you attend chur ch or congregation services? Never 04/18/2024 Do you belong to any clubs o r organizations such as druze groups, unions, fraternal or athletic groups, or [...] Recorded Patient Health Questionnaire-2 Score 1 06/09/2024 [facility] - [...] slept in a halfway (including now)? No 03/01/2023 Housing Stability Vital [...] time in the past 12 m [facility], were you homeless or living in a halfway (including now)? 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 Not on file Not on file documented as of this encounter Plan of Treatment Upcoming Encounters Date Type Department Care Team (Late st Contact Info) Description 04/12/2025 9:50 AM EDT Office Visit [facility] ENDO[facility]IN[facility] [address] [place] [address] Tanya Lozano MD [address] [place] [address] 04/20/2025 3:00 PM EDT Office Visit [facility] [address] [place] [place] [address] Sonny Rodriguez, DPM 3006 [facility] 5 [place] [address] 05/04/2025 2:50 PM EDT Office Visit [facility] POD[facility] [address] [facility] 120 [place] [address] Sonny Rodriguez DPM 3006 [facility] 5 [place] [address] documented as of this encounter Procedures Procedure Name Priority Date/Time Associated Diagnosis Comments CT ABD/PEL WO IVCON 07/25/2024 3 :13 PM EST documented in this encounter Results * CT ABD/PEL WO IVCON (07/25/2024 3:13 PM EST) Anatomical Region Laterality Modality Other 07/25/2024 3:13 PM EST Narrative 07/25/2024 3:41 PM EST * * *Final Report* * * DATE OF EXAM: Jul 25 2024 3:13PM [facility] 0531 - CT ABD/PEL WO IVCON / PROCEDURE REASON: Left upper quadrant abdominal pain * * * * Physician Interpretation * * * * EXAMINATION: CT ABDOMEN AND PELVIS WITHOUT IV CONTRAST CLINICAL HISTORY: Left upper quadrant pain. Per review of the medical record, history of gastric bypass, status post Dylon limb lengthening 02/15/2024 and subsequent Dylon jejunostomy tube. 2 weeks postop. Pain around tube and vomiting. CT abdomen/pelvis for further evaluation. TECHNIQUE: Non-IV contrast imaging of the abdomen and pelvis was performed using standard technique, scanning from just above the dome of the diaphragm to the symphysis pubis. Unenhanced imaging is limited for the evaluation of some intra-abdominal and pelvic pathology. MQ: CTAPWO_3 Contrast: IV: None Oral: 450 ml of Omni 240 10-25ml diluted with water CT Radiation dose: Integrated Dose-length product (DLP) for this visit = 754 mGy*cm. CT Dose Reduction Employed: Automated exposure control (AEC) COMPARISON: None. RESULT: The absence of intravenous contrast precludes optimal evaluation of the solid and hollow viscera. Abdomen / Pelvis: Liver: Unremarkable unenhanced liver. Biliary: Status post cholecystectomy. No biliary ductal dilatation. Spleen: No splenomegaly. A 1.7 cm hypodensity within the inferior spleen is unchanged, and likely an angiomatous lesion. Pancreas: Unremarkable. Adrenals: No mass. Kidneys: Excreted contrast is present within both renal collecting systems and renal pelves, suggestive of recent intravenous contrast administration. Otherwise, unremarkable unenhanced kidneys. GI Tract: Status post Dylon-en-Y gastric bypass. Patent left lower quadrant jejunojejunostomy. A previously seen jejunostomy tube is positioned within the left mid abdomen. The bowel is normal in caliber and without evidence of wall thickening or obstruction. There are sigmoid colonic diverticula, without associated inflammation. No extraluminal enteric contrast. Lymph Nodes: No lymphadenopathy. Mesentery/peritoneum: No ascites. Retroperitoneum: No mass. Vasculature: No abdominal aortic or iliac artery aneurysm. Pelvis: The rectum and urinary bladder are unremarkable. Trace pelvic free fluid. Bones/Soft Tissues: Degenerative changes involve the hips and lumbar spine. No destructive lytic or blastic osseous abnormality. Lower thorax: Mild bibasilar juxtapleural subsegmental atelectasis. Localizer images: No additional findings. IMPRESSION: 1. No acute abnormality within the abdomen/pelvis. 2. No abdominopelvic fluid collection. No extraluminal enteric contrast. Trace nonspecific pelvic free fluid. 3. Appropriately positioned left abdominal jejunostomy tube. Status post Dylon-en-Y gastric bypass. Healthcare Economics Manager: ZACHERY Transcribe Date/Time: Jul 25 2024 3:22P Dictated by : BERRY RODRIGUES MD This examination was interpreted and the report reviewed and electronically signed by: BERRY RODRIGUES MD on Jul 25 2024 3:39PM EST [id number]^ACN Procedure Note Radiology, Radiologist, - 07/25/2024 * * *Final Report* * * DATE OF EXAM: Jul 25 2024 3:13PM [facility] 0531 - CT ABD/PEL WO IVCON / PROCEDURE REASON: Left upper quadrant abdominal pain * * * * Physician Interpretation * * * * EXAMINATION: CT ABDOMEN AND PELVIS WITHOUT IV CONTRAST CLINICAL HISTORY: Left upper quadrant pain. Per review of the medical record, history of gastric bypass, status post Dylon limb lengthening 02/15/2024 and subsequent Dylon jejunostomy tube. 2 weeks postop. Pain around tube and vomiting. CT abdomen/pelvis for further evaluation. TECHNIQUE: Non-IV contrast imaging of the abdomen and pelvis was performed using standard technique, scanning from just above the dome of the diaphragm to the symphysis pubis. Unenhanced imaging is limited for the evaluation of some intra-abdominal and pelvic pathology. MQ: CTAPWO_3 Contrast: IV: None Oral: 450 ml of Omni 240 10-25ml diluted with water CT Radiation dose: Integrated Dose-length product (DLP) for this visit = 754 mGy*cm. CT Dose Reduction Employed: Automated exposure control (AEC) COMPARISON: None. RESULT: The absence of intravenous contrast precludes optimal evaluation of the solid and hollow viscera. Abdomen / Pelvis: Liver: Unremarkable unenhanced liver. Biliary: Status post cholecystectomy. No biliary ductal dilatation. Spleen: No splenomegaly. A 1.7 cm hypodensity within the inferior spleen is unchanged, and likely an angiomatous lesion. Pancreas: Unremarkable. Adrenals: No mass. Kidneys: Excreted contrast is present within both renal collecting systems and renal pelves, suggestive of recent intravenous contrast administration. Otherwise, unremarkable unenhanced kidneys. GI Tract: Status post Dylon-en-Y gastric bypass. Patent left lower quadrant jejunojejunostomy. A previously seen jejunostomy tube is positioned within the left mid abdomen. The bowel is normal in caliber and without evidence of wall thickening or obstruction. There are sigmoid colonic diverticula, without associated inflammation. No extraluminal enteric contrast. Lymph Nodes: No lymphadenopathy. Mesentery/peritoneum: No ascites. Retroperitoneum: No mass. Vasculature: No abdominal aortic or iliac artery aneurysm. Pelvis: The rectum and urinary bladder are unremarkable. Trace pelvic free fluid. Bones/Soft Tissues: Degenerative changes involve the hips and lumbar spine. No destructive lytic or blastic osseous abnormality. Lower thorax: Mild bibasilar juxtapleural subsegmental atelectasis. Localizer images: No additional findings. IMPRESSION: 1. No acute abnormality within the abdomen/pelvis. 2. No abdominopelvic fluid collection. No extraluminal enteric contrast. Trace nonspecific pelvic free fluid. 3. Appropriately positioned left abdominal jejunostomy tube. Status post Dylon-en-Y gastric bypass. Healthcare Economics Manager: PSCB Transcribe Date/Time: Jul 25 2024 3:22P Dictated by : BERRY RODRIGUES MD This examination was interpreted and the report reviewed and electronically signed by: BERRY RODRIGUES MD on Jul 25 2024 3:39PM EST [id number]^ACN Generic External Data Provider [facility] Final Result documented in this encounter Visit Diagnoses Not on filedocumented in this encounter Additional Health Concerns Assessment Noted Time PHQ-9 Depression Total Score: 18 024 9:42 AM EDT documented as of this encounter Care Teams Foreman Shipping Department Relationship Specialty Start Date End Date Shlomo Hu MD 112 [facility] 110 [place] [address] PCP - General Internal Medicine 02/15/23 Shante Kumar, HEAVY ANTIARMOR WEAPONS INFANTRYMAN-SERVICE AND REPAIR SUPERVISOR 112 [facility] 160 [place] [address] [facility], DUKE Pittman 112 [facility] [address] [place] [address] Licensed Practical Nurse Family Medicine 01/19/24 10/21/24 Claribel Scott, PIETRO [address] [place], [place] [phone] Licensed Practical Nurse Family Medicine 10/21/24 12/06/24 Jess Marsh LPN 112 [facility] 110 [place] [address] 12/06/24 Esthela Tesfaye, KIRA [address] [place] [address] Technology Risk Intern Family Medicine 02/03/25 documented as of this encounter
--- OUTSIDE RECORDS SUMMARY | 2025-03-28 09:12 | XMS_ITS | Encounter Summary ---
Author Organization [facility] Address [address] [facility] [place] [address] Care Team Providers Care Director Community Organization Name Role Phone Shlomo Hu MD Primary Care Provider Jacob Sharp DEVELOPMENT ADMINISTRATOR Unavailable [phone] Thursday, Toya INSURANCE INVESTIGATOR Unavailable [phone] Shlomo Hu MD Unavailable [phone] Shante Kumar SLIP LASTER-EDITORIAL CLERK Unavailable Claribel Scott RN Unavailable Jess Marsh INSURANCE INVESTIGATOR Unavailable Esthela Tesfaye INSPECTOR BALANCE BRIDGE Unavailable Reason for Visit * Reason Comments Med Refill Encounter Details Date Type Department Care Team (Late st Contact Info) Description 04/15/[address] [facility] [address] [facility] 160 [place] [address] Shante Kumar, SLIP LASTER-EDITORIAL CLERK [address] [facility] 160 [place] [address] Moderate episode of recurrent major depressive disorder (HCC) Social History Tobacco Use Types Packs/Day Years [...] any clubs o r organizations such as presybeterian groups, unions, fraternal or athletic groups, or [...] Recorded Patient Health Questionnaire-2 Score 6 08/26/2023 [facility] of Occupat ional [...] time in the past 12 m [facility], were you homeless or [...] 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 Answer Date of Assessment Author Never 04/18/2024 10:50 AM EDT Mychart, Generic * Q2: How many drinks containing alcohol do you have on a typical day when you are drinking? Answer Date of Assessment Author Patient does not drink 04/18/2024 10:50 AM EDT M ychart, Generic * Q3: How often do you have six or more drinks on one occasion? Answer Date of Assessment Author Never 04/18/2024 10:50 AM EDT Mychart, Generic documented as of this encounter Plan of Treatment Upcoming Encounters Date Type Department Care Team (Late st Contact Info) Description 04/12/2025 9:50 AM EDT Office Visit [facility] END[facility]IN[facility] [address] [place] [address] Tanya Lozano MD [address] [place] [address] 04/20/2025 3:00 PM EDT Office Visit [facility] CI PODIATRY [address] [place] [address] [place] [phone] Sonny Rodriguez DPM [address] [facility] 5 [place] [address] 05/04/2025 2:50 PM EDT Office Visit [facility] [address] [place] [address] [place] [address] Sonny Rodriguez DPM 3[address] [facility] 5 [place] [address] documented as of this encounter Visit Diagnoses Diagnosis Moderate episode of recurrent major depressive disorder (HCC) documented in this encounter Additional Health Concerns Assessment Noted Time PHQ-9 Depression Total Score: 9 08/26/20 23 1:30 PM EST documented as of this encounter Care Teams Director Community Organization Relationship Specialty Start Date End Date Shlomo Hu MD [address] [facility] [address] [place] [address] PCP - General Internal Medicine 02/15/23 [place] [address] [place] [address] PCP - [place] [employer] 08/14/23 Shlomo Hu MD [address] [facility] 110 [place] [address] PCP - [place] [employer] 05/15/2407/14 Shante Kumar APRN-EDITORIAL CLERK [address] [facility] 160 [place] [address] PCP - [place] [employer] 07/15/24 5 ThursdayToya LPN [address] [facility] 110 [place] [address] Licensed Practical Nurse Family Medicine 01/19/24 10/21/24 Claribel Scott, RN [address] [place] [address] Licensed Practical Nurse Family Medicine 10/21/24 12/06/24 Jess Marsh LPN [address] [facility] 110 [place] [address] 12/06/24 Esthela Tesfaye, KIRA [address] [place] [address] Shorthand Teacher Family Medicine 02/03/25 documented as of this encounter
--- OUTSIDE RECORDS SUMMARY | 2025-03-28 09:12 | XMS_ITS | Encounter Summary ---
Author Organization [facility] Address [address] [place] [address] Care Team Providers Care Team Coordinator Name Role Phone Sean Ruiz DO Primary Care Provider [phone] Jacob Sharp Unavailable Rasheeda Newton RD Unavailable [phone] Unavailable [phone] Fritz HENDERSON MD, Shlomo Momin Primary Care Provider [phone] Yuan Miller MD, PhD Unavailable [phone] Source Comments In the event this information is protected by the Federal Confidentiality of Alcohol and Drug AbusePatient Records regulations: The Federal rules restrict any use of the information to criminally investigate or prosecute any alcohol or drug abuse patient.[facility] Encounter Details Date Type Department Care Team (Late st Contact Info) Description 08/09/2023 Get Medical Advice Gastroenterology [address] [phone] Johanna Martinez MD [facility] [address] [address] Feeding tube Social History Tobacco Use Types Packs/Day [...] slept in a halfway (including now)? No 08/10/2023 Area Deprivation Index Answer Date Reagan rded National Score (1-100), lower number is lower ri sk 63 03/05/2023 State Score (1-10), lower number is lower risk 4 03/05/2023 Data from: https://www.neighborhoodatlas.medicine.[facility]/. Last address used for calculation [address] [facility] 270 03/05/2023 Comments No Sex and Gender [...] AM EDT Office Visit General Surgery 9300 [place] [address] Michael Mora PA-C 9500 [place] [address] follow up- add on ok'd by Michael 04/07/2025 1:00 PM EDT [facility] Neurological Judaism [address] [place] [phone] Agatha Kim, DILAN [address] [place] [id number] 04/19/2025 11:00 AM EDT [facility] Neurological Judaism [address] [place] [phone] Joann Loera APRN.FAMILY ASSESSMENT WORKER [address] [place] [phone] Cognitive movement issues 04/21/2025 8:30 AM EDT [facility] Nutrition Therapy 2048 [place] [address] Tiffany Banks, RD 9500 [place] [address] f/u TF forula tolerance and hydration 05/29/2025 9:00 AM EDT [facility] Gastroenterology [address] [place] [phone] Johanna Martinez MD [facility] [address] [place] [address] 3 month follow up 06/28/2025 10:00 AM EDT [facility] Neurology Pain [address] [place] [address] [place] [address] [place] [phone] Follow up for pain documented as of [...] documented as of this encounter Care Teams Team Coordinator Relationship Specialty [place] [address] [place] [address] PCP - General Family Medicine 07/09/12 10/05/23 Shlomo Hu II, MD [address] [facility] 110 [place] [address] PCP - General Internal Medicine 10/06/23 Jacob Sharp [address] [place] [address] Referring 04/30/[address] [place] [address] Registered Dietitian Nutrition 06/24/[address]00 [place] [address] Registered Dietitian Nutrition 08/27/23 Yuan Miller MD, PhD 9500 [place] [address] Surgeon General Surgery 02/03/24 documented as of this encounter
--- OUTSIDE RECORDS SUMMARY | 2025-03-28 09:12 | XMS_ITS | Encounter Summary ---
Author Organization [facility] Address [address] [place] [address] Care Team Providers Care Yellow Pages Space Salesperson Name Role Phone Sean Ruiz DO Primary Care Provider [phone] Jacob Sharp Unavailable Rasheeda Newton RD Unavailable [phone] Unavailable [phone] Fritz HENDERSON MD, Shlomo Momin Primary Care Provider [phone] Yuan Miller MD, PhD Unavailable [phone] Source Comments In the event this information is protected by the Federal Confidentiality of Alcohol and Drug AbusePatient Records regulations: The Federal rules restrict any use of the information to criminally investigate or prosecute any alcohol or drug abuse patient.[facility] Encounter Details Date Type Department Care Team (Late st Contact Info) Description 07/30/2023 Get Medical Advice Gastroenterology [address] [phone] Johanna Martinez MD [facility] [address] [address] Blood work Social History Tobacco Use Types [...] slept in a residential (including now)? No 09/18/2022 Area Deprivation Index Answer Date Reagan rded National Score (1-100), lower number is lower ri sk 63 03/05/2023 State Score (1-10), lower number is lower risk 4 03/05/2023 Data from: https://www.neighborhoodatlas.medicine.[facility]/. Last address used for calculation [address] [facility] 270 03/05/2023 Comments No Sex and Gender [...] AM EDT Office Visit General Surgery 9300 [place] [address] Michael Mora PA-C 9500 [place] [address] follow up- add on ok'd by Michael 04/07/2025 1:00 PM EDT [facility] Neurological Rastaf[place] [address] [place] [id number] Agatha Kim, DILAN [address] [place] [phone] 04/19/2025 11:00 AM EDT [facility] Neurological Rastafari [address] [place] [phone] Joann Loera APRN.DATA COMMUNICATIONS TECHNICIAN [address] [place] [phone] Cognitive movement issues 04/21/2025 8:30 AM EDT [facility] Nutrition Therapy 2048 [place] [address] Tiffany Banks, RD 9500 [place] [address] f/u TF forula tolerance and hydration 05/29/2025 9:00 AM EDT [facility] Gastroenterology [address] [place] [phone] Johanna Martinez MD [facility] [address] [place] [address] 3 month follow up 06/28/2025 10:00 AM EDT [facility] Neurology Pain [address] [place] [address] [place] [address] [place] [phone] Follow up for pain documented as of [...] documented as of this encounter Care Teams Yellow Pages Space Salesperson Relationship Specialty [place] [address] [place] [address] PCP - General Family Medicine 07/09/12 10/05/23 Shlomo Hu II, MD [address] [email or web address] 110 [place] [address] PCP - General Internal Medicine 10/06/23 Jacob Sharp [address] [place] [address] Referring 04/30/[address] [place] [address] Registered Dietitian Nutrition 06/24/[address]00 [place] [address] Registered Dietitian Nutrition 08/27/23 Yuan Miller MD, PhD 9500 [place] [address] Surgeon General Surgery 02/03/24 documented as of this encounter
--- OUTSIDE RECORDS SUMMARY | 2025-03-28 09:12 | XMS_ITS | Encounter Summary ---
Author Organization [facility] Address [address] [place] [address] Care Team Providers Care Stitch Marker Name Role Phone Sean Ruiz DO Primary Care Provider [phone] Jacob Sharp Unavailable Rasheeda Newton RD Unavailable [phone] Unavailable [phone] Fritz HENDERSON MD, Shlomo Momin Primary Care Provider [phone] Yuan Miller MD, PhD Unavailable [phone] Source Comments In the event this information is protected by the Federal Confidentiality of Alcohol and Drug AbusePatient Records regulations: The Federal rules restrict any use of the information to criminally investigate or prosecute any alcohol or drug abuse patient.[facility] Encounter Details Date Type Department Care Team (Late st Contact Info) Description 07/14/2013 Patient Msg Medical Records [address] [place] [address] Provider, Ccf RE: Request an Appointment Social [...] Visit General Surgery 9300 [place] [address] Michael Mora PA-C [address] [place] [phone] follow up- add on ok'd by Michael 04/07/2025 1:00 PM EDT [facility] Neurological Pentecostalism 9300 [place] [address] Agatha Kim PSYD [address] [place] [phone] 04/19/2025 11:00 AM EDT [facility] Neurological Pentecostalism [address] [place] [phone] Joann Loera APRN.SWINE EXTENSION FIELD SPECIALIST 9500 [place] [address] Cognitive movement issues 04/21/2025 8:30 AM EDT [facility] Nutrition Therapy 2048 [place] [address] Tiffany Banks, RD [address] [place] [phone] f/u TF forula tolerance and hydration 05/29/2025 9:00 AM EDT [facility] Gastroenterology [address] [place] [phone] Johanna Martinez MD [facility] [address] [place] [address] 3 month follow up 06/28/2025 10:00 AM EDT [facility] Neurology Pain [address] [facility] [place] [address] [place] [address] [place] [address] Follow up for pain documented as of [...] documented as of this encounter Care Teams Stitch Marker Relationship Specialty [place] [address] [place] [address] PCP - General Family Medicine 07/09/12 10/05/23 Shlomo Hu II, MD 112 [facility] 110 [place] [address] PCP - General Internal Medicine 10/06/23 Jcaob Sharp [address] [place] [address] Referring 04/30/[address] [place] [phone] Registered Dietitian Nutrition 06/24/[address]508 [place] [address] Registered Dietitian Nutrition 08/27/23 Yuan Miller MD, PhD 9502 [place] [address] Surgeon General Surgery 02/03/24 documented as of this encounter
--- OUTSIDE RECORDS SUMMARY | 2025-03-28 09:12 | XMS_ITS | Encounter Summary ---
Author Organization [facility] Address [address] [facility] [place] [address] Care Team Providers Care Supervisor Fish Bait Processing Name Role Phone Shlomo Hu MD Primary Care Provider Jacob Sharp SENIOR BUSINESS INTELLIGENCE ANALYST Unavailable [phone] Thursday, Toya WEB PRODUCTION ASSISTANT Unavailable [phone] Shlomo Hu MD Unavailable [phone] Shante Kumar LICENSED INSURANCE SALES AGENT-REPAIRER EVAPORATOR Unavailable Claribel Scott RN Unavailable Jess Marsh WEB PRODUCTION ASSISTANT Unavailable Esthela Tesfaye REMOTE RECRUITER Unavailable Encounter Details Date Type Department Care Team (Late st Contact Info) Description 04/12/2024 Abstract [facility] 112 [facility] 110 [place] [address] Shlomo Hu MD 112 [facility] 110 [place] [address] Social History Tobacco Use Types [...] week 03/01/2023 How often do you attend [facility] or scientologist services? 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 Not on file Not on file documented as of this encounter Plan of Treatment Upcoming Encounters Date Type Department Care Team (Late st Contact Info) Description 04/12/2025 9:50 AM EDT Office Visit [facility] ENDOCRINOLOGY [address] [place] [address] Tanya Lozano MD [address] [place] [address] 04/20/2025 3:00 PM EDT Office Visit [facility] PODIATRY [address] [place] [address] Sonny Rodriguez DPM [address] [address] 05/04/2025 2:50 PM EDT Office Visit [facility] [address] [place] [place] [address] Sonny Rodriguez DPM [address] [address] documented as of this encounter Visit Diagnoses Not on filedocumented in this encounter Additional Health Concerns Assessment Noted Time PHQ-9 Depression Total Score: 9 08/26/20 23 1:30 PM EST documented as of this encounter Care Teams Supervisor Fish Bait Processing Relationship Specialty Start Date End Date Shlomo Hu MD [address] [place] [place] [address] PCP - General Internal Medicine 02/15/23 [place] [address] [place] [address] PCP - Denzel Mckeon 08/14/23 Slhomo Hu MD [address] [place] [place] [address] PCP - [place] Commercial 05/15/2407/14 Shante Kumar, LICENSED INSURANCE SALES AGENT-REPAIRER EVAPORATOR [address] [place] [address] PCP - [place] Commercial 07/15/24 ThursdayToya LPN [address] [place] [address] Licensed Practical Nurse Family Medicine 01/19/24 10/21/24 Claribel Scott, RN [address] [place] [address] Licensed Practical Nurse Family Medicine 10/21/24 12/06/24 Jess Marsh LPN [address] [facility] 110 [place] [address] 12/06/24 Esthela Tesfaye, KIRA 14[address] [place] [address] Box Sealing Machine Operator Family Medicine 02/03/25 documented as of this encounter
--- OUTSIDE RECORDS SUMMARY | 2025-03-28 09:12 | XMS_ITS | Encounter Summary ---
Author Organization [facility] Address [address] [place] [address] Care Team Providers Care Pattern Marker Name Role Phone Sean Ruiz DO Primary Care Provider [phone] Jacob Sharp Unavailable Rasheeda Newton RD Unavailable [phone] Unavailable [phone] Fritz HENDERSON MD, Shlomo B Primary Care Provider [phone] Yuan Miller MD, PhD Unavailable [phone] Source Comments In the event this information is protected by the Federal Confidentiality of Alcohol and Drug AbusePatient Records regulations: The Federal rules restrict any use of the information to criminally investigate or prosecute any alcohol or drug abuse patient.[facility] Encounter Details Date Type Department Care Team (Late st Contact Info) Description 07/21/2016 Patient Msg Plastic Surgery [address] [place], [place] [phone] Rema Cole MD 9500 [place] [address] RE: Request an Appointment Social History Tobacco [...] AM EDT Office Visit General Surgery 9300 [place] [address] Michael Mora PA-C [address] [place] [address] follow up- add on ok'd by Michael 04/07/2025 1:00 PM EDT [facility] Neurological Latter-Day [address] [place] [address] Agatha Kim PSYD 9500 [place] [address] 04/19/2025 11:00 AM EDT [facility] Neurological Latter-Day [address] [place] [address] oJann Loera APRN.IMPLEMENTATION CONSULTANT 9500 [place] [address] Cognitive movement issues 04/21/2025 8:30 AM EDT [facility] Nutrition Therapy [address] [place] [phone] Tiffany Banks, RD 9500 [place] [address] f/u TF forula tolerance and hydration 05/29/2025 9:00 AM EDT [facility] Gastroenterology [address] [place] 2168106 Johanna Martinez MD [facility] [address] [place], [place] [address] 3 month follow up 06/28/2025 10:00 AM EDT [facility] Neurology Pain [address] [place] [phone] [place] [address] [place] [address] Follow up for pain documented as of [...] documented as of this encounter Care Teams Pattern Marker Relationship Specialty [place] [address] [place] [address] PCP - General Family Medicine 07/09/12 10/05/23 Shlomo Hu II, MD [address] [facility] 110 [place] [address] PCP - General Internal Medicine 10/06/23 Jacob Sharp [address] [place] [address] Referring 04/30/[address] [phone] Registered Dietitian Nutrition 06/24/[address] [place] [address] Registered Dietitian Nutrition 08/27/23 Yuan Miller MD, PhD 9500 [place] [address] Surgeon General Surgery 02/03/24 documented as of this encounter
--- OUTSIDE RECORDS SUMMARY | 2025-03-28 09:12 | XMS_ITS | Encounter Summary ---
Author Organization [facility] Address [address] [facility] [place] [address] Care Team Providers Care Asparagus Cutter Name Role Phone Shlomo Hu MD Primary Care Provider [phone] Thursday, Toya NEON ELECTRICIAN Unavailable [phone] Shante Kumar WELCOME CENTER AGENT-RECREATION FACILITY MANAGER Unavailable Claribel Scott RN Unavailable Jess Marsh NEON ELECTRICIAN Unavailable Esthela Tesfaye SATURATION EQUIPMENT OPERATOR Unavailable [phone] Encounter Details Date Type Department Care Team (Late st Contact Info) Description 07/15/2024 Abstract [facility] 112 [facility] 110 [place] [address] Shlomo Hu MD 112 [facility] 110 [place], [place] [id number] Social History Tobacco Use Types Packs/Day Years [...] often do you attend chur ch or yazidism services? 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 Not on file Not on file documented as of this encounter Plan of Treatment Upcoming Encounters Date Type Department Care Team (Late st Contact Info) Description 04/12/2025 9:50 AM EDT Office Visit [facility] ENDOCRINOLOGY [address] [place] [address] Tanya Lozano MD [address] [place] [address] 04/20/2025 3:00 PM EDT Office Visit [facility] P[facility] [address] [place] [address] Sonny Rodriguez DPM 3006 [facility] 5 [place] [address] 05/04/2025 2:50 PM EDT Office Visit [facility] [address] [place] [address] Sonny Rodriguez DPLudmila 3006 [facility] 5 [place] [address] documented as of this encounter Visit Diagnoses Not on filedocumented in this encounter Additional Health Concerns Assessment Noted Time PHQ-9 Depression Total Score: 18 024 9:42 AM EDT documented as of this encounter Care Teams Asparagus Cutter Relationship Specialty Start Date End Date Shlomo Hu MD [address] [place] [address] PCP - General Internal Medicine 02/15/23 Shante Kumar APRN-RECREATION FACILITY MANAGER [address] [place] [address] PCP - [place] Commercial 07/15/24 ThursdayToya LPN [address] [facility] [address] [place] [address] Licensed Practical Nurse Family Medicine 01/19/24 10/21/24 Claribel Scott, RN [address] [place] [address] Licensed Practical Nurse Family Medicine 10/21/24 12/06/24 Jess Marsh LPN [address] [place] [address] 12/06/24 Esthela Tesfaye, KIRA [address] [place] [address] Chainstitch Elastic Attacher Family Medicine 02/03/25 documented as of this encounter
--- OUTSIDE RECORDS SUMMARY | 2025-03-28 09:12 | XMS_ITS | Encounter Summary ---
Author Organization [facility] Address [address] [place] [address] Care Team Providers Care Agency Recruiter Name Role Phone Jacob Sharp Unavailable Rasheeda Newton RD Unavailable [phone] Unavailable [phone] Fritz HENDERSON MD, Shlomo Momin Primary Care Provider [phone] Yuan Miller MD, PhD Unavailable [phone] Source Comments In the event this information is protected by the Federal Confidentiality of Alcohol and Drug AbusePatient Records regulations: The Federal rules restrict any use of the information to criminally investigate or prosecute any alcohol or drug abuse patient.[facility] Reason for Visit * Reason Comments Medication Problem Encounter Details Date Type Department Care Team (Late st Contact Info) Description 08/29/2024 Telephone General Surgery [address] [id number] Yuan Miller MD, PhD [address] [place] [address] Medication Problem Social History Tobacco Use Types Packs/Day Years Used Date Smoking Tobacco: Never Smokeless Tobacco: Never Alcohol Use Standard Drinks/Week Comments Not Currently 0 (1 standard drink = 0.6 oz pur e alcohol) [facility] Utilities Answer Date Recorded In the [...] living in a custodial (including now)? No 08/01/2024 Area Deprivation Index Answer Date Reagan rded National Score (1-100), lower number is lower ri sk 63 03/05/2023 State Score (1-10), lower number is lower risk 4 03/05/2023 Data from: https://www.neighborhoodatlas.[facility]/. Last address used for calculation [address] 270 03/05/2023 Comments No Sex and [...] encounter Miscellaneous Notes * Telephone Encounter - Isidoro Rodriguezamairani - 08/29/2024 3:19 PM EST Pt called and state that she spoke to someone this morning and state that michael was going to send a scrip for pain meds oxy.Wuld like 10 mg not 5mg they dont work She is calling now because there is no script at her pharmacy documented in this encounter Plan of Treatment Upcoming Encounters Date Type Department Care Team (Latest Contact Info) Description 03/31/2025 11:00 AM EDT Office Visit General Surgery [address] [id number] Michael Mora PA-C [address] [id number] follow up- add on ok'd by Michael 04/07/2025 1:00 PM EDT [facility] Neurological Congregation [address] [id number] Agatha Kim PSYD [address] [place] [address] 04/19/2025 11:00 AM EDT [facility]rological [facility] [address] [place] [address] Joann Loera APRN.GYNECOLOGY TEACHER [address] [place] [address] Cognitive movement issues 04/21/2025 8:30 AM EDT [facility] Nutrition Therapy [address] [id number] Tiffany Banks, RD [address] [place] [address] f/u TF forula tolerance and hydration 05/29/2025 9:00 AM EDT [facility] Gastroenterology [address] [phone] Johanna Martinez MD [facility] [address] [place], [place] [address] 3 month follow up 06/28/2025 10:00 AM EDT [facility] Neurology Pain [address] [phone] [place] [address] [place], [place] 5377295 Follow up for pain documented as of this encounter Visit Diagnoses Not on filedocumented in this encounter Care Teams Agency Recruiter Relationship Specialty Start Date End Date Shlomo Hu II, MD [address] [address] PCP - General Internal Medicine 10/06/23 Jacob Sharp [address] [phone] Referring 04/30/[address] [place], [place] [address] Registered Dietitian Nutrition 06/24/[address] [facility] [address] [id number] Registered Dietitian Nutrition 08/27/23 Yuan Miller MD, PhD [address] [place] [address] Surgeon General Surgery 02/03/24 documented as of this encounter
--- OUTSIDE RECORDS SUMMARY | 2025-03-28 09:12 | XMS_ITS | Encounter Summary ---
Author Organization [facility] Address [address] [place] [address] Care Team Providers Care Pier Master Assistant Name Role Phone Jacob Sharp Unavailable Rasheeda Newton RD Unavailable [phone] Unavailable [phone] Fritz HENDERSON MD, Shlomo Momin Primary Care Provider [phone] Yuan Miller MD, PhD Unavailable [phone] Source Comments In the event this information is protected by the Federal Confidentiality of Alcohol and Drug AbusePatient Records regulations: The Federal rules restrict any use of the information to criminally investigate or prosecute any alcohol or drug abuse patient.[facility] Encounter Details Date Type Department Care Team (Late st Contact Info) Description 08/16/2024 Patient Msg Neurology Pain [address] [place], [place] [phone] [place] [address] [place] [address] [employer] Social History Tobacco Use Types Packs/Day Years [...] living in a retirement (including now)? No 08/01/2024 Area Deprivation Index Answer Date Reagan rded National Score (1-100), lower number is lower ri sk 63 03/05/2023 State Score (1-10), lower number is lower risk 4 03/05/2023 Data from: https://www.neighborhoodatlas.[facility]/. Last address used for calculation [address] [facility] 270 03/05/2023 Comments No Sex [...] Evanoski, Donna, RN documented in this encounter Plan of Treatment Upcoming Encounters Date Type Department Care Team (Latest Contact Info) Description 03/31/2025 11:00 AM EDT Office Visit General Surgery [address] [phone] Michael Mora PA-C [address] [place] [address] follow up- add on ok'd by Michael 04/07/2025 1:00 PM EDT [facility] [address] [phone] Agatha Kim PSYD [address] [phone] 04/19/2025 11:00 AM EDT [facility] [address] [place] [address] Joann Loera APRN.OUT AND OUT CIGAR MAKER HAND [address] [phone] Cognitive movement issues 04/21/2025 8:30 AM EDT [facility] Nutrition Therapy [address] [phone] Tiffany Banks, RD [address] [place] [address] f/u TF forula tolerance and hydration 05/29/2025 9:00 AM EDT [facility] Gastroenterology [address] [phone] Johanna Martinez MD [facility] [address] [place], [place] 4850306 3 month follow up 06/28/2025 10:00 AM EDT [facility] Neurology Pain [address] [phone] [place] [address] [address] [phone] Follow up for pain documented as of this encounter Visit Diagnoses Not on filedocumented in this encounter Care Teams Pier Master Assistant Relationship Specialty Start Date End Date Shlomo Hu II, MD [address] [facility] 110 [place] [address] PCP - General Internal Medicine 10/06/23 Jacob Sharp [address] [phone] Referring 04/30/[address] [place] [address] Registered Dietitian Nutrition 06/24/[address] [place] [address] Registered Dietitian Nutrition 08/27/23 Yuan Miller MD, PhD [address] [place] [address] Surgeon General Surgery 02/03/24 documented as of this encounter
--- OUTSIDE RECORDS SUMMARY | 2025-03-28 09:13 | XMS_ITS | Encounter Summary ---
Author Organization [facility] Address [address] [place] [address] Care Team Providers Care Credit Processor Name Role Phone Sean Ruiz DO Primary Care Provider [phone] Jacob Sharp Unavailable Rasheeda Newton RD Unavailable [phone] Unavailable [phone] Fritz HENDERSON MD, Shlomo Momin Primary Care Provider [phone] Yuan Miller MD, PhD Unavailable [phone] Source Comments In the event this information is protected by the Federal Confidentiality of Alcohol and Drug AbusePatient Records regulations: The Federal rules restrict any use of the information to criminally investigate or prosecute any alcohol or drug abuse patient.[facility] Encounter Details Date Type Department Care Team (Late st Contact Info) Description 08/19/2023 Patient Msg Gastroenterology [address] [phone] Provider, C[facility] Requested paperwork Social History Tobacco Use Types Packs/Day Years [...] risk 4 03/05/2023 Data from: https://www.neighborhoodatlas.medicine.[facility].edu/. Last address used for calculation [address] [...] AM EDT Office Visit General Surgery [address] [place] [address] Michael Mora PA-C [address] [place], [place] [phone] follow up- add on ok'd by Michael 04/07/2025 1:00 PM EDT [facility] [address] [phone] Agatha Kim PSYD [address] [phone] 04/19/2025 11:00 AM EDT [facility] [address] 6230006 Joann Loera APRN.WASTEWATER OPERATOR [address] [phone] Cognitive movement issues 04/21/2025 8:30 AM EDT [facility] Nutrition Therapy [address] [phone] Tiffany Banks, RD [address] [place] [address] [phone] f/u TF forula tolerance and hydration 05/29/2025 9:00 AM EDT [facility] Gastroenterology [address] [phone] Johanna Martinez MD [facility] [address] [place], [place] 85[address] 3 month follow up 06/28/2025 10:00 AM EDT [facility] Neurology Pain [address] 6230006 [place] [address] [address] [id number] Follow up for pain documented as of [...] documented as of this encounter Care Teams Credit Processor Relationship Specialty [place] [address] [place] [address] PCP - General Family Medicine 07/09/12 10/05/23 Shlomo Hu II, MD [address] [facility] 110 [place] [address] PCP - General Internal Medicine 10/06/23 Jacob Sharp [address] [place] [address] Referring 04/30/[address], [place] [address] Registered Dietitian Nutrition 06/24/[address] [facility]4 [place] [address] Registered Dietitian Nutrition 08/27/23 Yuan Miller MD, PhD [address] [place] [address] Surgeon General Surgery 02/03/24 documented as of this encounter
--- OUTSIDE RECORDS SUMMARY | 2025-03-28 09:13 | XMS_ITS | Encounter Summary ---
Author Organization [facility] Address [address] [facility] [place] [address] Care Team Providers Care Director Of Reservations Name Role Phone Shlomo Hu MD Primary Care Provider [phone] Thursday, Toya CAMPOSN Unavailable [phone] Slhomo Hu MD Unavailable [phone] Shante Kumar LABORER [place] NURSE Unavailable Claribel Scott RN Unavailable Jess Marsh PHARMACEUTICAL SCIENTIST Unavailable Esthela Tesfaye SENIOR UI UX DEVELOPER Unavailable Encounter Details Date Type Department Care Team (Late st Contact Info) Description 07/13/2024 Abstract [facility] 112 [facility] 110 [place] [address] Shlomo Hu MD 112 [facility] 110 [place] [address] Social History Tobacco Use Types [...] often do you attend chur ch or judaism services? 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 Not on file Not on file documented as of this encounter Plan of Treatment Upcoming Encounters Date Type Department Care Team (Late st Contact Info) Description 04/12/2025 9:50 AM EDT Office Visit [facility] [address] [place] [address] Tanya Lozano MD [address] [place] [address] 04/20/2025 3:00 PM EDT Office Visit [facility] [address] [place] [place] [address] Sonny Rodriguez DPM [address] [address] 05/04/2025 2:50 PM EDT Office Visit [facility] [address] [place] [address] Sonny Rodriguez DPM [address] [address] documented as of this encounter Visit Diagnoses Not on filedocumented in this encounter Additional Health Concerns Assessment Noted Time PHQ-9 Depression Total Score: 18 024 9:42 AM EDT documented as of this encounter Care Teams Director Of Reservations Relationship Specialty Start Date End Date Shlomo Hu MD [address] [place] [place] [address] PCP - General Internal Medicine 02/15/23 Shlomo Hu MD [address] [place] [place] [address] PCP - [place] [employer] 05/15/2407/14 Shante Kumar, LABORER [place] NURSE [address] [place] [address] PCP - [place] [employer] 07/15/24, DUKE Pittman [address] [place] [address] Licensed Practical Nurse Family Medicine 01/19/24 10/21/24 Claribel Scott, RN [address] [place] [address] Licensed Practical Nurse Family Medicine 10/21/24 12/06/24 Jess Marsh LPN [address] [facility] 110 [place] [address] 12/06/24 Esthela Tesfaye, KIRA [address] [place] [address] Voice Teacher Family Medicine 02/03/25 documented as of this encounter
--- OUTSIDE RECORDS SUMMARY | 2025-03-28 09:13 | XMS_ITS | Encounter Summary ---
Author Organization [facility] Address [address] [place] [address] Care Team Providers Care Hollow Core Door Frame Assembler Name Role Phone Jacob Sharp Unavailable Rasheeda Newton RD Unavailable [phone] Unavailable [phone] Fritz HENDERSON MD, Shlomo Momin Primary Care Provider [phone] Yuan Miller MD, PhD Unavailable [phone] Source Comments In the event this information is protected by the Federal Confidentiality of Alcohol and Drug AbusePatient Records regulations: The Federal rules restrict any use of the information to criminally investigate or prosecute any alcohol or drug abuse patient.[facility] Reason for Visit * Reason Comments Refill Request Encounter Details Date Type Department Care Team (Late st Contact Info) Description 11/03/2024 Refill PAIN MAGGIE COSME [address]ER[address] [place] [address] Johann Echeverria MD [address] [place] [address] [place] [address] Refill Request Social History Tobacco [...] PHQ-2 Answer Date Recorded PHQ-2 score 4 10/26/2024 Hunger Vital Sign Answer Date Recorded Within [...] 10/18/2024 Housing Stability Vital Sign Answer Luis Migeul e Recorded In the last 12 months, [...] any time in the past 12 m [facility], were you homeless or living in a fdc (including now)? No 10/18/2024 Area Deprivation Index Answer Date Reagan rded National Score (1-100), lower number is lower ri sk 63 03/05/2023 State Score (1-10), lower number is lower risk 4 03/05/2023 Data from: https://www.neighborhoodatlas.medicine.[facility].edu/. Last address used for calculation [address] 270 03/05/2023 Comments No [...] Date Author No 08/02/2024 3:06 PM EST Donna Hernandez RN documented in this encounter Miscellaneous Notes * Telephone Encounter - Daniela Ford LPN - 11/04/2024 3:19 PM EST Called DDM to see if Rx was sent per pharmacy customer care specialist no transfer at this time. * Telephone Encounter - Daniela Ford LPN - 11/04/2024 8:44 AM EST Oarrs:reviewed Last fill:09/12/25 Jaycee:04/07/24 Patient should have refills remaining will contact pharmacy when open Spoke with Rph at [facility]> patient transferred meds to [facility]. Spoke Rp at [facility] > Rx remaining. Called patient informed of remaining rx per patient she will call [facility] to transfer rx to [facility]. Will contact ddm to confirm received transferred Rx. documented in this encounter Plan of Treatment Upcoming Encounters Date Type Department Care Team (Latest Contact Info) Description 03/31/2025 11:00 AM EDT Office Visit General Surgery [address] [phone] Michael Mora PA-C 9500 [place] [address] follow up- add on ok'd by Michael 04/07/2025 1:00 PM EDT [facility] 9[address] [place] [address] Agatha Kim PSYD 9500 [place] [address] 04/19/2025 11:00 AM EDT [facility] 9[address] [place] [address] Joann Loera APRN.GAS GENERATOR OPERATOR 9500 [place] [address] Cognitive movement issues 04/21/2025 8:[address] [facility] Nutrition Therapy [address] [place] [phone] f/u TF forula tolerance and hydration 05/29/2025 9:[address] [facility] Gastroenterology [address] [address] Johanna Martinez MD [facility] [address] [address] 3 month follow up 06/28/2025 10:[address] [facility] Neurology Pain [address] [place] [address] [place] [address] [place], [place] [phone] Follow up for pain documented as of this encounter Visit Diagnoses Diagnosis Visceral hyperalgesia Other symptoms involving abdomen and pelvis Neuralgia and neuritis Neuralgia, neuritis, and radiculitis, unspecified Chronic pain syndrome History of Dylon-en-Y gastric bypass Bariatric surgery status documented in this encounter Care Teams Hollow Core Door Frame Assembler Relationship Specialty Start Date End Date Shlomo Hu II, MD 112 [facility] 110 [place] [address] PCP - General Internal Medicine 10/06/23 Jacob Sharp [address] [place] [address] Referring 04/30/[address] [address] Registered Dietitian Nutrition 06/24/[address]00 [place] [address] Registered Dietitian Nutrition 08/27/23 Yuan Miller MD, PhD 9500 [place] [address] Surgeon General Surgery 02/03/24 documented as of this encounter
--- OUTSIDE RECORDS SUMMARY | 2025-03-28 09:13 | XMS_ITS | Encounter Summary ---
Author Organization [facility] Address [address] [place] [address] Care Team Providers Care Grievance Coordinator Name Role Phone Sean Ruiz DO Primary Care Provider [phone] Jacob Sharp Unavailable Rasheeda Newton RD Unavailable [phone] Unavailable [phone] Fritz HENDERSON MD, Shlomo Momin Primary Care Provider [phone] uYan Miller MD, PhD Unavailable [phone] Source Comments In the event this information is protected by the Federal Confidentiality of Alcohol and Drug AbusePatient Records regulations: The Federal rules restrict any use of the information to criminally investigate or prosecute any alcohol or drug abuse patient.[facility] Encounter Details Date Type Department Care Team (Late st Contact Info) Description 08/17/2023 Get Medical Advice Gastroenterology [address] [phone] Johanna Martinez MD [facility] [address] [address] Follow up Social History Tobacco Use Types Packs/Day Years [...] is lower risk 4 03/05/2023 Data from: https://www.neighborhoodatlas.medicine.[facility]/. Last address used for calculation [address] [address] 03/05/2023 Comments No Sex and Gender Information [...] AM EDT Office Visit General Surgery [address] [phone] Michael Mora PA-C 9500 [place] [address] follow up- add on ok'd by Michael 04/07/2025 1:00 PM EDT [facility] 9300 [place] [address] Agatha Kim, DILAN [address]00 [place] [address] 04/19/2025 11:00 AM EDT [facility] 9300 [place] [address] Joann Loera APRN.DIE TURNER 9500 [place] [address] Cognitive movement issues 04/21/2025 8:30 AM EDT [facility] Nutrition Therapy [address] [place] [address] [phone] Tiffany Banks, RD [address] [place] 2546695 f/u TF forula tolerance and hydration 05/29/2025 9:00 AM EDT [facility] Gastroenterology [address] [place] [address] [phone] Johanna Martinez MD [facility] [address] [place], [place] [address] 3 month follow up 06/28/2025 10:00 AM EDT [facility] Neurology Pain [address] [place] 2546606 [place] [address] [address] [phone] Follow up for pain documented as of [...] documented as of this encounter Care Teams Grievance Coordinator Relationship Specialty [place] [address] [place] [address] PCP - General Family Medicine 07/09/12 10/05/23 Shlomo Hu II, MD 112 [facility] 110 [place] [address] PCP - General Internal Medicine 10/06/23 Jacob Sharp [address] [place] [address] Referring 04/30/[address] 0835006 Registered Dietitian Nutrition 06/24/[address] [place] [phone] Registered Dietitian Nutrition 08/27/23 Yuan Miller MD, PhD 9500 [place], [place] 6019995 Surgeon General Surgery 02/03/24 documented as of this encounter
--- OUTSIDE RECORDS SUMMARY | 2025-03-28 09:13 | XMS_ITS | Encounter Summary ---
Author Organization [facility] Address [address] [facility] [address] Care Team Providers Care Vamp Marker Name Role Phone Shlomo Hu MD Primary Care Provider Thursday, Toya CAMPOSN Unavailable [phone] Shlomo Hu MD Unavailable [phone] Shante Kumar SOIL SPECIALIST-SECURITIES ATTORNEY Unavailable Claribel Scott RN Unavailable Jess Marsh WOOD MACHINIST APPRENTICE Unavailable Esthela Tesfaye FURNITURE FABRICATOR Unavailable [phone] Encounter Details Date Type Department Care Team (Late st Contact Info) Description 07/12/2024 Abstract [facility] 112 [facility] 110 [place] [address] Shlomo Hu MD 112 [facility] 110 [place] [address] Social History Tobacco Use Types [...] often do you attend chur ch or baptist services? 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 Not on file Not on file documented as of this encounter Plan of Treatment Upcoming Encounters Date Type Department Care Team (Late st Contact Info) Description 04/12/2025 9:50 AM EDT Office Visit [facility] [address] [place] [address] Tanya Lozano MD [address] [place] [address] 04/20/2025 3:00 PM EDT Office Visit [facility] [address] [place] [address] Sonny Rodriguez DPM [address] [address] 05/04/2025 2:50 PM EDT Office Visit [facility] [address] [place] [address] Sonny Rodriguez DPM [address] [address] documented as of this encounter Visit Diagnoses Not on filedocumented in this encounter Additional Health Concerns Assessment Noted Time PHQ-9 Depression Total Score: 18 024 9:42 AM EDT documented as of this encounter Care Teams Vamp Marker Relationship Specialty Start Date End Date Shlomo Hu MD [address] [place] [address] PCP - General Internal Medicine 02/15/23 Shlomo Hu MD [address] [place] [address] PCP - [place] Commercial 05/15/2407/14 Shante Kumar, SOIL SPECIALIST-SECURITIES ATTORNEY [address] [place] [address] PCP - [place] Commercial 07/15/24, DUKE Pittman [address] [place] [address] Licensed Practical Nurse Family Medicine 01/19/24 10/21/24 Claribel Scott, RN [address] [place] [address] Licensed Practical Nurse Family Medicine 10/21/24 12/06/24 Jess Marsh LPN [address] [facility] 110 [place] [address] 12/06/24 Esthela Tesfaye, KIRA [address] [facility] [place] [address] Railroader Family Medicine 02/03/25 documented as of this encounter
--- OUTSIDE RECORDS SUMMARY | 2025-03-28 09:13 | XMS_ITS | Encounter Summary ---
Author Organization [facility] Address [address] [facility] [place] [address] Care Team Providers Care Service Aide Name Role Phone Shlomo Hu MD Primary Care Provider Thursday, Toya CAMPOSN Unavailable [phone] Shlomo Hu MD Unavailable [phone] Shante Kumar PER DIEM NURSE-DRILL PRESS SET UP OPERATOR Unavailable Claribel Scott RN Unavailable [phone] Jess Marsh WEIGHMASTER LEAD Unavailable Esthela Tesfaye JAMMER OPERATOR Unavailable Encounter Details Date Type Department Care Team (Late st Contact Info) Description 07/04/2024 Abstract [facility] 112 [facility] 110 [place] [address] Shlomo Hu MD 112 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 Not on file Not on file documented as of this encounter Plan of Treatment Upcoming Encounters Date Type Department Care Team (Late st Contact Info) Description 04/12/2025 9:50 AM EDT Office Visit [facility] [address] [place] [address] Tanya Lozano MD [address] [place] [address] 04/20/2025 3:00 PM EDT Office Visit [facility] [address] [place] [address] Sonny Rodriguez DPM [address] [address] 05/04/2025 2:50 PM EDT Office Visit [facility] [address] [place] [address] Sonny Rodriguez DPM [address] [address] documented as of this encounter Visit Diagnoses Not on filedocumented in this encounter Additional Health Concerns Assessment Noted Time PHQ-9 Depression Total Score: 18 024 9:42 AM EDT documented as of this encounter Care Teams Service Aide Relationship Specialty Start Date End Date Shlomo Hu MD [address] [place] [address] PCP - General Internal Medicine 02/15/23 Shlomo Hu MD [address] [place] [address] PCP - [place] [employer] 05/15/2407/14 Shante Kumar, PER DIEM NURSE-DRILL PRESS SET UP OPERATOR [address] [place] [address] PCP - [place] Commercial 07/15/24, DUKE Pittman [address] [place] [address] Licensed Practical Nurse Family Medicine 01/19/24 10/21/24 Claribel Scott, RN [address] [place] [address] Licensed Practical Nurse Family Medicine 10/21/24 12/06/24 Jess Marsh LPN [address] [facility] 110 [place] [address] 12/06/24 Esthela Tesfaye, KIRA [address] [facility] [place] [address] Salesperson Meats Family Medicine 02/03/25 documented as of this encounter
--- OUTSIDE RECORDS SUMMARY | 2025-03-28 09:13 | XMS_ITS | Encounter Summary ---
Author Organization [facility] Address [address] [place] [address] Care Team Providers Care Flux Tube Attendant Name Role Phone Sean Ruiz DO Primary Care Provider Jacob Sharp Unavailable Rasheeda Newton RD Unavailable [phone] Unavailable [phone] Fritz HENDERSON MD, Shlomo Momin Primary Care Provider [phone] Yuan Miller MD, PhD Unavailable [phone] Source Comments In the event this information is protected by the Federal Confidentiality of Alcohol and Drug AbusePatient Records regulations: The Federal rules restrict any use of the information to criminally investigate or prosecute any alcohol or drug abuse patient.[facility] Encounter Details Date Type Department Care Team (Late st Contact Info) Description 07/14/2013 Patient Msg Medical Records [address] [place] [address] Provider, Ccf RE: Request an Appointment Social [...] AM EDT Office Visit General Surgery 9300 [place] [address] Michael Mora PA-C [address] [place] [id number] follow up- add on ok'd by Michael 04/07/2025 1:00 PM EDT [facility] Neurological Hindu 9[address] [place] [address] Agatha Kim PSYD [address] [place] [phone] 04/19/2025 11:00 AM EDT [facility] Neurological Hindu [address] [place] [phone] Joann Loera APRN.BENCH CHEMIST 9500 [place] [address] Cognitive movement issues 04/21/2025 8:30 AM EDT [facility] Nutrition Therapy [address] [place] [address] Tiffany Banks, RD [address] [place] [id number] f/u TF forula tolerance and hydration 05/29/2025 9:00 AM EDT [facility] Gastroenterology [address] [place] [phone] Johanna Martinez MD [facility] [address] [place] [address] 3 month follow up 06/28/2025 10:00 AM EDT [facility] Neurology Pain [address] [facility] [place] [address] [place] [address] [place] [address] Follow up for pain documented as of [...] documented as of this encounter Care Teams Flux Tube Attendant Relationship Specialty [place] [address] [place] [address] PCP - General Family Medicine 07/09/12 10/05/23 Shlomo Hu II, MD 112 [facility] 110 [place] [address] PCP - General Internal Medicine 10/06/23 Jacob Sharp [address] [place] [address] Referring 04/30/[address] [place] [phone] Registered Dietitian Nutrition 06/24/[address]01 [place] [address] Registered Dietitian Nutrition 08/27/23 Yuan Miller MD, PhD 9508 [place] [address] Surgeon General Surgery 02/03/24 documented as of this encounter
--- OUTSIDE RECORDS SUMMARY | 2025-03-28 09:13 | XMS_ITS | Encounter Summary ---
Author Organization [facility] Address [address] [place], [place] [address] Care Team Providers Care Division Sales Manager Name Role Phone Jacob Sharp Unavailable Rasheeda Newton RD Unavailable [phone] Unavailable [phone] Fritz HENDERSON MD, Shlomo Momin Primary Care Provider [phone] Yuan Miller MD, PhD Unavailable [phone] Source Comments In the event this information is protected by the Federal Confidentiality of Alcohol and Drug AbusePatient Records regulations: The Federal rules restrict any use of the information to criminally investigate or prosecute any alcohol or drug abuse patient.[facility] Encounter Details Date Type Department Care Team (Late st Contact Info) Description 11/06/2024 Get Medical Advice Pain Management [address] [place], [place] [phone] Johann Echeverria MD [address] [place], [place] [phone] Gabapentin prescriptions Social History Tobacco Use Types Packs/Day Years Used Date Smoking Tobacco: Never Smokeless Tobacco: Never Alcohol Use Standard Drinks/Week Comments Not Currently 0 (1 standard drink = 0.6 oz pur e alcohol) [facility] Utilities Answer Date Recorded In [...] in a nursing home (including now)? No 02/16/2024 Housing Stability [...] in a nursing home (including now)? No 10/18/2024 Area Deprivation Index Answer Date Reagan rded National Score (1-100), lower number is lower ri sk 63 03/05/2023 State Score (1-10), lower number is lower risk 4 03/05/2023 Data from: https://www.neighborhoodatlas.[facility]/. Last address used for calculation [address] 270 03/05/2023 Comments No Sex [...] Telephone Encounter - Daniela Ford LPN - 11/07/2024 9:11 AM EST Spoke with DDM pharmacist once a Rx is transferred from pharmacy any further refills have to have anew Rx. See Rx Request documented in this encounter Plan of Treatment Upcoming Encounters Date Type Department Care Team (Latest Contact Info) Description 03/31/2025 11:00 AM EDT Office Visit General Surgery 9300 [place] [address] Michael Mora PA-C 9500 [place] [address] follow up- add on ok'd by Michael 04/07/2025 1:00 PM EDT [facility] Neurological Nondenominational 9[address] [place] [address] Agatha Kim PSYD 9500 [place] [address] 04/19/2025 11:00 AM EDT [facility] Neurological Nondenominational 9[address] [place] [address] Joann Loera APRN.HIDE DYER 9500 [place] [address] Cognitive movement issues 04/21/2025 8:30 AM EDT [facility] Nutrition Therapy [address] [place] [address] f/u TF forula tolerance and hydration 05/29/2025 9:00 AM EDT [facility] Gastroenterology [address] [place] [phone] Johanna Martinez MD [facility] [address] [place] [address] 3 month follow up 06/28/2025 10:00 AM EDT [facility] Neurology Pain [address] [place] [phone] [place] [address] [place], [place] [phone] Follow up for pain documented as of this encounter Visit Diagnoses Not on filedocumented in this encounter Care Teams Division Sales Manager Relationship Specialty Start Date End Date Shlomo Hu II, MD [address] [facility] 110 [place] [address] PCP - General Internal Medicine 10/06/23 Jacob Sharp [address] [place] [phone] Referring 04/30/[address] [place] [address] Registered Dietitian Nutrition 06/24/[address] [facility] [place] [address] Registered Dietitian Nutrition 08/27/23 Yuan Miller MD, PhD [address]00 [place], [place] [address] Surgeon General Surgery 02/03/24 documented as of this encounter
--- OUTSIDE RECORDS SUMMARY | 2025-03-28 09:13 | XMS_ITS | Encounter Summary ---
Author Organization [facility] Address [address] [place] [address] Care Team Providers Care Egyptologist Name Role Phone Sean uRiz DO Primary Care Provider [phone] Jacob Sharp Unavailable Rasheeda Newton RD Unavailable [phone] Unavailable [phone] Fritz HENDRESON MD, Shlomo Momin Primary Care Provider [phone] Yuan Miller MD, PhD Unavailable [phone] Source Comments In the event this information is protected by the Federal Confidentiality of Alcohol and Drug AbusePatient Records regulations: The Federal rules restrict any use of the information to criminally investigate or prosecute any alcohol or drug abuse patient.[facility] Encounter Details Date Type Department Care Team (Late st Contact Info) Description 09/20/2019 Patient Msg Pre Anesthesia [address] [place] [place] [phone] Provider, Ccf Pre Anesthesia Testing Appointment Social History Tobacco Use Types Packs/Day [...] AM EDT Office Visit General Surgery 9300 [place] [address] Michael Mora PA-C 9500 [place] [address] follow up- add on ok'd by Michael 04/07/2025 1:00 PM EDT [facility] Oriental Orthodox [address] [place] [phone] Agatha Kim PSYD 9500 [place] [address] 04/19/2025 11:00 AM EDT [facility] Neurological Oriental Orthodox [address]300 [place] [address] Joann Loera APRN.PROGRAM PARAPROFESSIONAL 9500 [place] [address] Cognitive movement issues 04/21/2025 8:30 AM EDT [facility] Nutrition Therapy [address] [place] [phone] Tiffany Banks, RD [address] [place] [phone] f/u TF forula tolerance and hydration 05/29/2025 9:00 AM EDT [facility] Gastroenterology [address] [place] [phone] Johanna Martinez MD [facility] [address] [place], [place] [phone] 3 month follow up 06/28/2025 10:00 AM EDT [facility] Neurology Pain [address] [place] [phone] [place] [address] [place] [address] Follow up for pain documented as of this encounter Visit Diagnoses Not on filedocumented in this encounter Additional Health Concerns Infection Onset Date Last Indicated Resolved Time COVID-19 Rule-Out 06/16/2022 06/16/2022 06/16/2022 12:29 PM EDT COVID-19 Rule-Out 06/26/2022 06/26/2022 06/26/2022 1:04 AM EDT COVID-19 Rule-Out 07/29/2022 07/29/2022 07/29/2022 11:11 PM EST COVID-19 Rule-Out 08/12/2022 08/12/202208/12/2022 2:12 AM EST C. difficile 09/12/2022 09/12/2022 [...] documented as of this encounter Care Teams Egyptologist Relationship Specialty [place] [address] [place] [address] PCP - General Family Medicine 07/09/12 10/05/23 Shlomo Hu II, MD 112 [facility] 110 [place] [address] PCP - General Internal Medicine 10/06/23 Jacob Sharp [address] [place] [address] Referring 04/30/[address], [place] [address] Registered Dietitian Nutrition 06/24/[address]00 [place] [address] Registered Dietitian Nutrition 08/27/23 Yuan Miller MD, PhD [facility] [place] [address] Surgeon General Surgery 02/03/24 documented as of this encounter
--- OUTSIDE RECORDS SUMMARY | 2025-03-28 09:13 | XMS_ITS | Encounter Summary ---
Author Organization [facility] Address [facility] [place] [address] Care Team Providers Care Rehabilitation Attendant Name Role Phone Siobhan Sharpjusto Unavailable Rasheeda Newton RD Unavailable [phone] Unavailable [phone] Fritz HENDERSON MD, Shlomo Momin Primary Care Provider [phone] Yuan Miller MD, PhD Unavailable [phone] Source Comments In the event this information is protected by the Federal Confidentiality of Alcohol and Drug AbusePatient Records regulations: The Federal rules restrict any use of the information to criminally investigate or prosecute any alcohol or drug abuse patient.[facility] Encounter Details Date Type Department Care Team (Late st Contact Info) Description 11/15/2024 Abstract Transplant Center [address] [place] [phone] Main, Intestinal Trans Coord 9500 [place] [address] Social History Tobacco Use Types Packs/Day Years Used Date Smoking Tobacco: Never Smokeless Tobacco: Never Alcohol Use Standard Drinks/Week Comments Not Currently 0 (1 standard drink = 0.6 oz pur e alcohol) [facility] Utilities Answer Date Recorded In the [...] is lower risk 4 03/05/2023 Data from: https://www.neighborhoodatlas.[facility]/. Last address used for calculation [address] 270 03/05/2023 Comments No Sex [...] AM EDT Office Visit General Surgery [address] [place] [phone] Michael Mora PA-C 9500 [place] [address] follow up- add on ok'd by Michael 04/07/2025 1:00 PM EDT [facility] Neurological Zoroastrian [address] [place] [phone] Agatha Kim PSYD [address] [place] [phone] 04/19/2025 11:00 AM EDT [facility] Neurological Zoroastrian [address] [place] [address] Joann Loera APRN.CASTING HOUSE LABORER [address] [place] [phone] Cognitive movement issues 04/21/2025 8:30 AM EDT [facility] Nutrition Therapy 2048 [place] [address] Tiffany Banks, RD 9500 [place] [address] f/u TF forula tolerance and hydration 05/29/2025 9:00 AM EDT [facility] Gastroenterology [address] [place] [phone] Johanna Martinez MD [facility] [address] [place] [phone] 3 month follow up 06/28/2025 10:00 AM T [facility] Neurology Pain [address] [place] [address] [place] [address] [place] [address] Follow up for pain documented as of this encounter Visit Diagnoses Not on filedocumented in this encounter Care Teams Rehabilitation Attendant Relationship Specialty Start Date End Date Shlomo Hu II, MD 112 [facility] 110 [place] [address] PCP - General Internal Medicine 10/06/23 Jacob Sharp [address] [place] [phone] Referring 04/30/[address] [place] [phone] Registered Dietitian Nutrition 06/24/[address] [facility]3 [place] [phone] Registered Dietitian Nutrition 08/27/23 Yuan Miller MD, PhD [facility]0 [place] [address] Surgeon General Surgery 02/03/24 documented as of this encounter
--- OUTSIDE RECORDS SUMMARY | 2025-03-28 09:13 | XMS_ITS | Encounter Summary ---
Author Organization [facility] Address [address] [place] [address] Care Team Providers Care Ocular Care Technician Name Role Phone Sean Ruiz DO Primary Care Provider [phone] Jacob Sharp Unavailable Rasheeda Newton RD Unavailable [phone] Unavailable [phone] Fritz HENDERSON MD, Shlomo Momin Primary Care Provider [phone] Yuan Miller MD, PhD Unavailable [phone] Source Comments In the event this information is protected by the Federal Confidentiality of Alcohol and Drug AbusePatient Records regulations: The Federal rules restrict any use of the information to criminally investigate or prosecute any alcohol or drug abuse patient.[facility] Encounter Details Date Type Department Care Team (Late st Contact Info) Description 05/25/2013 Patient Msg Medical Records [address] [place] [address] Provider, Ccf RE: Request an Appointment Social [...] AM EDT Office Visit General Surgery 9300 [place] [address] Michael Mora PA-C [address] [place] [phone] follow up- add on ok'd by Michael 04/07/2025 1:00 PM EDT [facility] Neurological Anglican [address] [place] [address] Agatha Kim PSYD [address] [place] [phone] 04/19/2025 11:00 AM EDT [facility] Neurological Anglican [address] [place] [phone] Joann Loera APRN.COLLATERAL SPECIALIST 9500 [place] [address] Cognitive movement issues 04/21/2025 8:30 AM EDT [facility] Nutrition Therapy 2048 [place] [address] Tiffany Banks, RD [address] [place] [phone] f/u TF forula tolerance and hydration 05/29/2025 9:00 AM EDT [facility] Gastroenterology [address] [place] [phone] Johanna Martinez MD [facility] [address] [place] [address] 3 month follow up 06/28/2025 10:00 AM EDT [facility] Neurology Pain [address] [place] [address] [place] [address] [place] [address] Follow up for pain documented as of [...] documented as of this encounter Care Teams Ocular Care Technician Relationship Specialty [place] [address] [place] [address] PCP - General Family Medicine 07/09/12 10/05/23 Shlomo Hu II, MD 112 [facility] 110 [place] [address] PCP - General Internal Medicine 10/06/23 Jacob Sharp [address] [place] [address] Referring 04/30/[address] [place] [phone] Registered Dietitian Nutrition 06/24/[address]504 [place] [address] Registered Dietitian Nutrition 08/27/23 Yuan Miller MD, PhD 9504 [place] [address] Surgeon General Surgery 02/03/24 documented as of this encounter
--- OUTSIDE RECORDS SUMMARY | 2025-03-28 09:13 | XMS_ITS | Encounter Summary ---
Author Organization [facility] Address [address] [place] [address] Care Team Providers Care Die Cutter Name Role Phone Jacob Sharp Unavailable Rasheeda Newton RD Unavailable [phone] Unavailable [phone] Fritz HENDERSON MD, Shlomo Momin Primary Care Provider [phone] Yuan Miller MD, PhD Unavailable [phone] Source Comments In the event this information is protected by the Federal Confidentiality of Alcohol and Drug AbusePatient Records regulations: The Federal rules restrict any use of the information to criminally investigate or prosecute any alcohol or drug abuse patient.[facility] Encounter Details Date Type Department Care Team (Late st Contact Info) Description 10/28/2024 Patient Msg General Surgery [address] [place], [place] [phone] Yenny Cast RN F/Y MYC message Social History Tobacco Use Types Packs/Day Years Used Date Smoking Tobacco: Never Smokeless Tobacco: Never Alcohol Use Standard Drinks/Week Comments Not Currently 0 (1 standard drink = 0.6 oz pur e alcohol) [facility] Utilities Answer Date Recorded In the [...] any time in the past 12 m [facility], were you homeless or living in a fpc (including now)? No 10/18/2024 Area Deprivation Index Answer Date Reagan rded National Score (1-100), lower number is lower ri sk 63 03/05/2023 State Score (1-10), lower number is lower risk 4 03/05/2023 Data from: https://www.neighborhoodatlas.medicine.[facility]/. Last address used for calculation [address] [...] AM EDT Office Visit General Surgery [address] [place] [phone] Michael Mora PA-C [address]00 [place] [address] follow up- add on ok'd by Michael 04/07/2025 1:00 PM EDT [facility] Neurological Taoism [address] [place] [phone] Agatha Kim PSYD [address]00 [place] [address] 04/19/2025 11:00 AM EDT [facility] Neurological Taoism [address] [place] [phone] Joann Loera APRN.ANATOMY PROFESSOR [address]00 [place] [address] Cognitive movement issues 04/21/2025 8:30 AM EDT [facility] Nutrition Therapy [address] [place] [phone] Tiffany Banks, RD [address] [place] [phone] f/u TF forula tolerance and hydration 05/29/2025 9:00 AM T [facility] Gastroenterology 2048 [place] [address] Johanna Martinez MD [facility] [address] [place], [place] [phone] 3 month follow up 06/28/2025 10:00 AM T [facility] Neurology Pain [address] [place] [phone] [place] [address] [place] [address] Follow up for pain documented as of this encounter Visit Diagnoses Not on filedocumented in this encounter Care Teams Die Cutter Relationship Specialty Start Date End Date Shlomo Hu II, MD [address] [place] [address] PCP - General Internal Medicine 10/06/23 Jacob Sharp [address] [place] [phone] Referring 04/30/[address] [place] [phone] Registered Dietitian Nutrition 06/24/[address] [place] [phone] Registered Dietitian Nutrition 08/27/23 Yuan Miller MD, PhD [address] [place] [address] Surgeon General Surgery 02/03/24 documented as of this encounter
--- OUTSIDE RECORDS SUMMARY | 2025-03-28 09:13 | XMS_ITS | Encounter Summary ---
Author Organization [facility] Address [address] [facility] [place] [address] Care Team Providers Care Vending Attendant Name Role Phone Shlomo Hu MD Primary Care Provider Jacob Sharp VENDOR REPRESENTATIVES Unavailable Thursday, Toya MANAGER AGRICULTURE Unavailable [phone] Shlomo Hu MD Unavailable [phone] Shante Kumar RAILROAD CAR CLEANING SUPERVISOR-FIRE PROTECTION ENGINEER Unavailable Claribel Scott RN Unavailable Maximo Jess MANAGER AGRICULTURE Unavailable Esthela Tesfaye CAN RECONDITIONER Unavailable Encounter Details Date Type Department Care Team (Late st Contact Info) Description 02/01/2024 Abstract [facility] 112 [facility] 110 [place] [address] Shlomo Hu MD 112 [facility] 110 [place] [address] Social History Tobacco Use Types [...] week 03/01/2023 How often do you attend [facility] or advent services? 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 Not on file Not on file documented as of this encounter Plan of Treatment Upcoming Encounters Date Type Department Care Team (Late st Contact Info) Description 04/12/2025 9:50 AM EDT Office Visit [facility] ENDO[facility] [address] [place] [address] Tanya Lozano MD [address] [place] [address] 04/20/2025 3:00 PM EDT Office Visit [facility] P[facility] [address] [place] [address] Sonny Rodriguez DPM [address] [address] 05/04/2025 2:50 PM EDT Office Visit [facility] [address] [place] [address] Sonny Rodriguez DPM [address] [address] documented as of this encounter Visit Diagnoses Not on filedocumented in this encounter Additional Health Concerns Assessment Noted Time PHQ-9 Depression Total Score: 9 08/26/20 23 1:30 PM EST documented as of this encounter Care Teams Vending Attendant Relationship Specialty Start Date End Date Shlomo Hu MD [address] [place] [address] PCP - General Internal Medicine 02/15/23 [place] [address] [place] [address] PCP - Denzel Mckeon 08/14/23 Shlomo Hu MD [address] [place] [address] PCP - [place] [employer] 05/15/2407/14 Shante Kumar, RAILROAD CAR CLEANING SUPERVISOR-FIRE PROTECTION ENGINEER [address] [place] [address] PCP - [place] [employer] 07/15/24 ThursdayToya LPN [address] [place] [address] Licensed Practical Nurse Family Medicine 01/19/24 10/21/24 Claribel Scott, RN [address] [place] [address] Licensed Practical Nurse Family Medicine 10/21/24 12/06/24 Jess Marsh LPN [address] [facility] 110 [place] [address] 12/06/24 Esthela Tesfaye, KIRA 14[address] [place] [address] Label Stamper Family Medicine 02/03/25 documented as of this encounter
--- OUTSIDE RECORDS SUMMARY | 2025-03-28 09:13 | XMS_ITS | Encounter Summary ---
Author Organization [facility] Address [address] [facility] [place] [address] Care Team Providers Care Disc Pad Plate Filler Name Role Phone Shlomo Hu MD Primary Care Provider [phone] Thursday, Toya CAMPOSN Unavailable [phone] Shlomo Hu MD Unavailable [phone] Shante Kumar MECHANICAL TECH-SCRAP CRANE OPERATOR Unavailable Claribel Scott RN Unavailable Jess Marsh OPHTHALMOLOGY ASSISTANT Unavailable Esthela Tesfaye CHIEF ORTHOPTIST Unavailable Encounter Details Date Type Department Care Team (Late st Contact Info) Description 06/20/2024 Abstract [facility] [address] 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 Not on file Not on file documented as of this encounter Plan of Treatment Upcoming Encounters Date Type Department Care Team (Late st Contact Info) Description 04/12/2025 9:50 AM EDT Office Visit [facility] END[facility] [address] [place] [address] Tanya Lozano MD [address] [place] [address] 04/20/2025 3:00 PM EDT Office Visit [facility] [address] [place] [address] Sonny Rodriguez DPM [address] [address] 05/04/2025 2:50 PM EDT Office Visit [facility] [address] [place] [address] Sonny Rodriguez DPM [address] [address] documented as of this encounter Visit Diagnoses Not on filedocumented in this encounter Additional Health Concerns Assessment Noted Time PHQ-9 Depression Total Score: 18 024 9:42 AM EDT documented as of this encounter Care Teams Disc Pad Plate Filler Relationship Specialty Start Date End Date Shlomo Hu MD [address] [place] [address] PCP - General Internal Medicine 02/15/23 Shlomo Hu MD [address] [place] [address] PCP - [place] [employer] 05/15/2407/14 Shante Kumar, MECHANICAL TECH-SCRAP CRANE OPERATOR [address] [place] [address] PCP - [place] Commercial 07/15/24, DUKE Pittman [address] [place] [address] Licensed Practical Nurse Family Medicine 01/19/24 10/21/24 Claribel Scott, RN [address] [place] [address] Licensed Practical Nurse Family Medicine 10/21/24 12/06/24 Jess Marsh LPN [address] [facility] 110 [place] [address] 12/06/24 Esthela Tesfaye, KIRA [address] [facility] [place] [address] Network Control Supervisor Family Medicine 02/03/25 documented as of this encounter
--- OUTSIDE RECORDS SUMMARY | 2025-03-28 09:13 | XMS_ITS | Encounter Summary ---
Author Organization [facility] Address [address] [place] [address] Care Team Providers Care Pantograph Machine Set Up Operator Name Role Phone Jacob Sharp Unavailable Rasheeda Newton RD Unavailable [phone] Unavailable [phone] Fritz HENDERSON MD, Shlomo Momin Primary Care Provider [phone] Yuan Miller MD, PhD Unavailable [phone] Source Comments In the event this information is protected by the Federal Confidentiality of Alcohol and Drug AbusePatient Records regulations: The Federal rules restrict any use of the information to criminally investigate or prosecute any alcohol or drug abuse patient.[facility] Encounter Details Date Type Department Care Team (Late st Contact Info) Description 10/28/2024 Get Medical Advice General Surgery [address] [place] [address] Yuan Miller MD, PhD [address] [place] [address] Meds Social History Tobacco Use Types Packs/Day Years Used Date Smoking Tobacco: Never Smokeless Tobacco: Never Alcohol Use Standard Drinks/Week Comments Not Currently 0 (1 standard drink = 0.6 oz pur e alcohol) [facility] Utilities Answer Date Recorded In [...] is lower risk 4 03/05/2023 Data from: https://www.neighborhoodatlas.medicine.[facility]/. Last address used for calculation [address] 03/05/2023 Comments [...] Office Visit General Surgery [address] [place] [address] [id number] Michael Mora PA-C [address] [place] [address] follow up- add on ok'd by Michael 04/07/2025 1:00 PM EDT [facility] Neurological Pentecostal [address] [address] [id number] Agatha Kim PSYD [address] [phone] 04/19/2025 11:00 AM EDT [facility] Neurological Pentecostal [address] [place] [address] Joann Loera APRN.FINISHING POWDER PRESS OPERATOR [address] [id number] Cognitive movement issues 04/21/2025 8:30 AM EDT [facility] Nutrition Therapy [address] [phone] Tiffany Banks, RD [address] [place] [address] f/u TF forula tolerance and hydration 05/29/2025 9:00 AM EDT [facility] Gastroenterology [address] [place] [address] [phone] Johanna Martinez MD [facility] [address] [place], [place] [address] 3 month follow up 06/28/2025 10:00 AM EDT [facility] Neurology Pain [address] [phone] [place] [address] [address] [id number] Follow up for pain documented as of this encounter Visit Diagnoses Not on filedocumented in this encounter Care Teams Pantograph Machine Set Up Operator Relationship Specialty Start Date End Date Shlomo Hu II, MD [address] [facility] 110 [place] [address] PCP - General Internal Medicine 10/06/23 Jacob Sharp [address] [id number] Referring 04/30/[address] [place] [phone] Registered Dietitian Nutrition 06/24/[address] [place] [address] Registered Dietitian Nutrition 08/27/23 Yuan Miller MD, PhD [address] [place] [address] Surgeon General Surgery 02/03/24 documented as of this encounter
--- OUTSIDE RECORDS SUMMARY | 2025-03-28 09:13 | XMS_ITS | Encounter Summary ---
Author Organization [facility] Address [address] [facility] [place] [address] Care Team Providers Care Blasting Contract Man Name Role Phone Shlomo Hu MD Primary Care Provider Thursday, Toya CAMPOSN Unavailable [phone] Shlomo Hu MD Unavailable [phone] Shante Kumar STAFF ANESTHESIOLOGIST-CLOTH COVERER Unavailable Claribel Scott RN Unavailable Jess Marsh PLATER SUPERVISOR Unavailable Esthela Tesfaye PROGRAMS MANAGER Unavailable Encounter Details Date Type Department Care Team (Late st Contact Info) Description 06/17/2024 Abstract [facility] 112 [facility] 110 [place] [address] Shlomo Hu MD 112 [facility] 110 [place] [address] Social History Tobacco Use Types [...] any clubs o r organizations such as rastafarian groups, unions, fraternal or athletic groups, or [...] Recorded Patient Health Questionnaire-2 Score 1 06/09/2024 [employer] of Occupat ional Health - Occupational Stress [...] 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 Not on file Not on file documented as of this encounter Plan of Treatment Upcoming Encounters Date Type Department Care Team (Late st Contact Info) Description 04/12/2025 9:50 AM EDT Office Visit [facility] END[facility] [address] [place] [address] Tanya Lozano MD [address] [place] [address] 04/20/2025 3:00 PM EDT Office Visit [facility] [address] [place] [address] Sonny Rodriguez DPM [address] [address] 05/04/2025 2:50 PM EDT Office Visit [facility] [address] [place] [address] Sonny Rodriguez DPM [address] [address] documented as of this encounter Visit Diagnoses Not on filedocumented in this encounter Additional Health Concerns Assessment Noted Time PHQ-9 Depression Total Score: 18 024 9:42 AM EDT documented as of this encounter Care Teams Blasting Contract Man Relationship Specialty Start Date End Date Shlomo Hu MD [address] [place] [address] PCP - General Internal Medicine 02/15/23 Shlomo uH MD [address] [place] [address] PCP - [place] [employer] 05/15/2407/14 Shante Kumar, STAFF ANESTHESIOLOGIST-CLOTH COVERER [address] [place] [address] PCP - [place] Commercial 07/15/24, DUKE Pittman [address] [place] [address] Licensed Practical Nurse Family Medicine 01/19/24 10/21/24 Claribel Scott, RN [address] [place] [address] Licensed Practical Nurse Family Medicine 10/21/24 12/06/24 Jess Marsh LPN [address] [facility] 110 [place] [address] 12/06/24 Esthela Tesfaye, KIRA [address] [facility] [place] [address] Advertising Rep Family Medicine 02/03/25 documented as of this encounter
--- OUTSIDE RECORDS SUMMARY | 2025-03-28 09:13 | XMS_ITS | Encounter Summary ---
Author Organization [facility] Address [address] [place] [address] Care Team Providers Care Salon Coordinator Name Role Phone Sean Ruiz DO Primary Care Provider [phone] Jacob Sharp Unavailable Rasheeda Newton RD Unavailable [phone] Unavailable [phone] Fritz HENDERSON MD, Shlomo oMmin Primary Care Provider [phone] Yuan Miller MD, PhD Unavailable [phone] Source Comments In the event this information is protected by the Federal Confidentiality of Alcohol and Drug AbusePatient Records regulations: The Federal rules restrict any use of the information to criminally investigate or prosecute any alcohol or drug abuse patient.[facility] Encounter Details Date Type Department Care Team (Late st Contact Info) Description 07/22/2013 Patient Msg Medical Records [address] [place] [address] Provider, Ccf RE: Request an Appointment Social [...] AM EDT Office Visit General Surgery [address] [place] [address] Michael Mora PA-C [address] [address] [phone] follow up- add on ok'd by Michael 04/07/2025 1:00 PM EDT [facility] Neurological Jainism [address] [place] [address] Agatha Kim PSYD [address] [phone] 04/19/2025 11:00 AM EDT [facility] Neurological Jainism [address] [phone] Joann Loera APRN.ARMATURE WINDER REPAIR [address] [place] [address] Cognitive movement issues 04/21/2025 8:30 AM EDT [facility] Nutrition Therapy [address] [place] [address] Tiffany Banks, RD [address] [id number] f/u TF forula tolerance and hydration 05/29/2025 9:00 AM EDT [facility] Gastroenterology [address] [phone] Johanna Martinez MD [facility] [address] [place] [address] 3 month follow up 06/28/2025 10:00 AM EDT [facility] Neurology Pain [address] [place] [address] [place] [address] [place] [address] Follow up for pain documented as of [...] documented as of this encounter Care Teams Salon Coordinator Relationship Specialty [place] [address] [place] [address] PCP - General Family Medicine 07/09/12 10/05/23 Shlomo Hu II, MD 112 [facility] 110 [place] [address] PCP - General Internal Medicine 10/06/23 Jacob Sharp [address] [place] [address] Referring 04/30/[address] [place] [phone] Registered Dietitian Nutrition 06/24/[address] [place] [address] Registered Dietitian Nutrition 08/27/23 Yuan Miller MD, PhD [address]01 [place] [address] Surgeon General Surgery 02/03/24 documented as of this encounter
--- OUTSIDE RECORDS SUMMARY | 2025-03-28 09:13 | XMS_ITS | Encounter Summary ---
Author Organization [facility] Address [address] [place] [address] Care Team Providers Care Food General Manager Name Role Phone Jacob Sharp Unavailable Rasheeda Newton RD Unavailable [phone] Unavailable [phone] Fritz HENDERSON MD, Shlomo Momin Primary Care Provider [phone] Yuan Miller MD, PhD Unavailable [phone] Source Comments In the event this information is protected by the Federal Confidentiality of Alcohol and Drug AbusePatient Records regulations: The Federal rules restrict any use of the information to criminally investigate or prosecute any alcohol or drug abuse patient.[facility] Encounter Details Date Type Department Care Team (Late st Contact Info) Description 11/04/2024 Patient Msg General Surgery [address] [place], [place] [phone] Sayra Rodriguez, RN Appointment Cancellation Social History Tobacco Use Types Packs/Day Years Used Date Smoking Tobacco: Never Smokeless Tobacco: Never Alcohol Use Standard Drinks/Week Comments Not Currently 0 (1 standard drink = 0.6 oz pur e alcohol) [facility] Utilities Answer Date Recorded In the [...] any time in the past 12 m [facility], were you homeless or living in a residential (including now)? No 10/18/2024 Area Deprivation Index Answer Date Reagan rded National Score (1-100), lower number is lower ri sk 63 03/05/2023 State Score (1-10), lower number is lower risk 4 03/05/2023 Data from: https://www.neighborhoodatlas.medicine.[facility]/. Last address used for calculation [address] [...] AM EDT Office Visit General Surgery [address] [id number] Michael Mora PA-C [address] [place] [address] [phone] follow up- add on ok'd by Michael 04/07/2025 1:00 PM EDT [facility] Neurological Orthodoxy [address] [phone] Agatha Kim PSYD [address] [place] [address] [phone] 04/19/2025 11:00 AM EDT [facility] Neurological Orthodoxy [address] [phone] Joann Loera APRN.ASSEMBLY MEMBER [address] [place] [address] Cognitive movement issues 04/21/2025 8:30 AM EDT [facility] Nutrition Therapy [address] [place] [address] Tiffany Banks, RD [address] [place] [phone] f/u TF forula tolerance and hydration 05/29/2025 9:00 AM T [facility] Gastroenterology [address] [place] [address] Johanna Martinez MD [facility] [address] [place], [place] [phone] 3 month follow up 06/28/2025 10:00 AM T [facility] Neurology Pain [address] [phone] [place] [address] [place] [address] Follow up for pain documented as of this encounter Visit Diagnoses Not on filedocumented in this encounter Care Teams Food General Manager Relationship Specialty Start Date End Date Shlomo Hu II, MD [address] [place] [address] [place] [address] PCP - General Internal Medicine 10/06/23 Jacob Sharp [address] [place] [address] Referring 04/30/[address] [place] [phone] Registered Dietitian Nutrition 06/24/[address] [place] [phone] Registered Dietitian Nutrition 08/27/23 Yuan Miller MD, PhD [address] [place] [address] Surgeon General Surgery 02/03/24 documented as of this encounter
--- OUTSIDE RECORDS SUMMARY | 2025-03-28 09:13 | XMS_ITS | Encounter Summary ---
Author Organization [facility] Address [address] [facility] [place] [address] Care Team Providers Care Attending Physician Name Role Phone Shlomo Hu MD Primary Care Provider Jacob Sharp COSTUME SHOP COORDINATOR Unavailable [phone] Thursday, Toya TRACK SERVICE PERSON Unavailable [phone] Shlomo Hu MD Unavailable [phone] Shante Kumar INFORMATION CLERK-HOT DIP GALVANIZER Unavailable Claribel Scott RN Unavailable [phone] Jess Marsh TRACK SERVICE PERSON Unavailable Esthela Tesfaye MECHANICAL FACILITIES TECHNICIAN Unavailable [phone] Encounter Details Date Type Department Care Team (Late st Contact Info) Description 02/01/2024 Orders Only [facility] [address] [facility] 110 [place] [address] Yanci Aguilar PA [address] [facility] 110 [place], [place] [phone] Pulmonary nodules/lesions, multiple Social History Tobacco Use Types Packs/Day Years [...] week 03/01/2023 How often do you attend [facility] or hinduism services? 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 Not on file Not on file documented as of this encounter Plan of Treatment Upcoming Encounters Date Type Department Care Team (Late st Contact Info) Description 04/12/2025 9:50 AM EDT Office Visit [facility] [address] [place] [address] Tanya Lozano MD [address] [place] [address] 04/20/2025 3:00 PM EDT Office Visit [facility] P[facility] [address] [place] [address] Sonny Rodriguez DPM 3006 [facility] [address] [place] [address] 05/04/2025 2:50 PM EDT Office Visit [facility] [address] [place] [address] Sonny Rodriguez DPLudmila 3006 [facility] [address] [place] [address] documented as of this encounter Visit Diagnoses Diagnosis Pulmonary nodules/lesions, multiple Other diseases of lung, not elsewhere classified documented in this encounter Additional Health Concerns Assessment Noted Time PHQ-9 Depression Total Score: 9 08/26/20 23 1:30 PM EST documented as of this encounter Care Teams Attending Physician Relationship Specialty Start Date End Date Shlomo Hu MD [address] [place] [address] PCP - General Internal Medicine 02/15/23 [place] [address] [place] [address] PCP - [place] [employer] 08/14/23 Shlomo Hu MD [address] [place] [address] PCP - [place] [employer] 05/15/2407/14 Shante Kumar, INFORMATION CLERK-HOT DIP GALVANIZER [address] [place] [address] PCP - [place] [employer] 07/15/24 ThursdayToya LPN [address] [facility] [address] [place] [address] Licensed Practical Nurse Family Medicine 01/19/24 10/21/24 Claribel Scott, RN [address] [place] [address] Licensed Practical Nurse Family Medicine 10/21/24 12/06/24 Jess Marsh LPN 112 [facility] 110 [place] [address] 12/06/24 Esthela Tesfaye, MECHANICAL FACILITIES TECHNICIAN [address] [place] [address] Milled Rubber Tender Family Medicine 02/03/25 documented as of this encounter
--- OUTSIDE RECORDS SUMMARY | 2025-03-28 09:13 | XMS_ITS | Encounter Summary ---
Author Organization [facility] Address [address] [place] [address] Care Team Providers Care Biofuels Production Associate Name Role Phone Jacob Sharp Unavailable Rasheeda Newton RD Unavailable [phone] Unavailable [phone] Fritz HENDERSON MD, Shlomo Momin Primary Care Provider [phone] Yuan Miller MD, PhD Unavailable [phone] Source Comments In the event this information is protected by the Federal Confidentiality of Alcohol and Drug AbusePatient Records regulations: The Federal rules restrict any use of the information to criminally investigate or prosecute any alcohol or drug abuse patient.[facility] Encounter Details Date Type Department Care Team (Late st Contact Info) Description 10/17/2024 Get Medical Advice Gastroenterology [address] [id number] Johanna Martinez MD [facility] [address] [address] [place] Social History Tobacco Use Types Packs/Day Years Used Date Smoking Tobacco: Never Smokeless Tobacco: Never Alcohol Use Standard Drinks/Week Comments Not Currently 0 (1 standard drink = 0.6 oz pur e alcohol) [facility] Utilities Answer Date Recorded In the [...] PHQ-2 Answer Date Recorded PHQ-2 score 5 09/16/2024 Hunger Vital Sign Answer Date Recorded Within [...] time in the past 12 m [facility], were you homeless or living in a assisted (including now)? No 10/18/2024 Area Deprivation Index Answer Date Reagan rded National Score (1-100), lower number is lower ri sk 63 03/05/2023 State Score (1-10), lower number is lower risk 4 03/05/2023 Data from: https://www.neighborhoodatlas.medicine.[facility]/. Last address used for calculation [address] [...] AM EDT Office Visit General Surgery [address] [phone] Michael Mora PA-C [address] [phone] follow up- add on ok'd by Michael 04/07/2025 1:00 PM EDT [facility] Neurological Orthodox [address] [phone] Agatha Kim PSYD [address] [phone] 04/19/2025 11:00 AM EDT [facility] Neurological Orthodox [address] [phone] Joann Loera APRN.PUSH BUTTON SWITCH ASSEMBLER [address] [id number] Cognitive movement issues 04/21/2025 8:30 AM EDT [facility] Nutrition Therapy [address] [phone] Tiffany Banks, RD [address] [phone] f/u TF forula tolerance and hydration 05/29/2025 9:00 AM EDT [facility] Gastroenterology [address] [phone] Johanna Martinez MD [facility] [address] [place] [address] 3 month follow up 06/28/2025 10:00 AM EDT [facility] Neurology Pain [address] [address] [phone] [place] [address] [address] [id number] Follow up for pain documented as of this encounter Visit Diagnoses Not on filedocumented in this encounter Care Teams Biofuels Production Associate Relationship Specialty Start Date End Date Shlomo Hu II, MD [address] [place] [address] [place] [address] PCP - General Internal Medicine 10/06/23 Jacob Sharp [address] [address] [phone] Referring 04/30/[address] [place] [phone] Registered Dietitian Nutrition 06/24/[address] [place] [address] Registered Dietitian Nutrition 08/27/23 Yuan Miller MD, PhD [address] [place] [address] Surgeon General Surgery 02/03/24 documented as of this encounter
--- OUTSIDE RECORDS SUMMARY | 2025-03-28 09:13 | XMS_ITS | Encounter Summary ---
Author Organization [facility] Address [address] [place] [address] Care Team Providers Care Saw Grinder Name Role Phone Sean Ruiz DO Primary Care Provider [phone] Jacob Sharp Unavailable Rasheeda Newton RD Unavailable [phone] Unavailable [phone] Fritz HENDERSON MD, Shlomo B Primary Care Provider [phone] Yuan Miller MD, PhD Unavailable [phone] Source Comments In the event this information is protected by the Federal Confidentiality of Alcohol and Drug AbusePatient Records regulations: The Federal rules restrict any use of the information to criminally investigate or prosecute any alcohol or drug abuse patient.[facility] Encounter Details Date Type Department Care Team (Late st Contact Info) Description 08/13/2023 Get Medical Advice Hematology/Oncology [address] [place] [address] Lacey Youssef, PIPE PROCESSOR.GENERAL FARM MANAGER [address] [place] [address] Blood work Social History Tobacco Use Types [...] lower risk 4 03/05/2023 Data from: https://www.neighborhoodatlas.[facility]/. Last address used for calculation [address] [address] 03/05/2023 Comments No Sex and Gender Information [...] AM EDT Office Visit General Surgery [address] [phone] Michael Mora PA-C [address] [place] [address] follow up- add on ok'd by Michael 04/07/2025 1:00 PM EDT [facility] Neurological Amish [address] [place] [address] Agatha Kim, DILAN [address] [place] [address] 04/19/2025 11:00 AM EDT [facility] Neurological Amish [address] [place] [address] Joann Loera APRN.GENERAL FARM MANAGER [address] [place] [address] Cognitive movement issues 04/21/2025 8:30 AM EDT [facility] Nutrition Therapy [address] [phone] Tiffany Banks, RD [address] [phone] f/u TF forula tolerance and hydration 05/29/2025 9:00 AM EDT [facility] Gastroenterology [address] [phone] Johanna Martinez MD [facility] [address] [place], [place] [phone] 3 month follow up 06/28/2025 10:00 AM EDT [facility] Neurology Pain 10[address] [place] [address] [place] [address] [address] [phone] Follow up for pain documented as of [...] documented as of this encounter Care Teams Saw Grinder Relationship Specialty [place] [address] [place] [address] PCP - General Family Medicine 07/09/12 10/05/23 Shlomo Hu II, MD 112 [facility] 110 [place] [address] PCP - General Internal Medicine 10/06/23 Jacob Sharp [address] [place] [address] Referring 04/30/[address] [phone] Registered Dietitian Nutrition 06/24/[address] [phone] Registered Dietitian Nutrition 08/27/23 Yuan Miller MD, PhD [address] [place], [place] [phone] Surgeon General Surgery 02/03/24 documented as of this encounter
--- OUTSIDE RECORDS SUMMARY | 2025-03-28 09:13 | XMS_ITS | Encounter Summary ---
Author Organization [facility] Address [address] [place] [address] Care Team Providers Care Wash And Greaser Name Role Phone Jacob Sharp Unavailable Rasheeda Newton RD Unavailable [phone] Unavailable [phone] Fritz HENDERSON MD, Shlomo Momin Primary Care Provider [phone] Yuan Miller MD, PhD Unavailable [phone] Source Comments In the event this information is protected by the Federal Confidentiality of Alcohol and Drug AbusePatient Records regulations: The Federal rules restrict any use of the information to criminally investigate or prosecute any alcohol or drug abuse patient.[facility] Encounter Details Date Type Department Care Team (Late st Contact Info) Description 11/04/2024 Get Medical Advice General Surgery [address] [place] [address] Yuan Miller MD, PhD [address] [place] [address] Infection of site Social History Tobacco Use Types Packs/Day Years Used Date Smoking Tobacco: Never Smokeless Tobacco: Never Alcohol Use Standard Drinks/Week Comments Not Currently 0 (1 standard drink = 0.6 oz pur e alcohol) [facility] Utilities Answer Date Recorded In the [...] in the past 12 m [facility], were you homeless or living in a [place] health care facility (including now)? No 10/18/2024 Area Deprivation Index Answer Date Reagan rded National Score (1-100), lower number is lower ri sk 63 03/05/2023 State Score (1-10), lower number is lower risk 4 03/05/2023 Data from: https://www.neighborhoodatlas.medicine.[facility]/. Last address used for calculation [address] [...] AM EDT Office Visit General Surgery [address] [phone] Michael Mora PA-C [address] [place] [address] follow up- add on ok'd by Michael 04/07/2025 1:00 PM EDT [facility] Neurological Church [address] [place] [address] Agatha Kim PSYD [address] [place] [address] 04/19/2025 11:00 AM EDT [facility] Neurological Church [address] [place] [address] Joann Loera APRN.INFORMATION SYSTEMS SECURITY SPECIALIST [address] [phone] Cognitive movement issues 04/21/2025 8:30 AM EDT [facility] Nutrition Therapy [address] [phone] Tiffany Banks, RD [address] [place] [address] f/u TF forula tolerance and hydration 05/29/2025 9:00 AM EDT [facility] Gastroenterology [address] [phone] Johanna Martinez MD [facility] [address] [place], [place] [address]83[address] 3 month follow up 06/28/2025 10:00 AM EDT [facility] Neurology Pain [address] [place] [address] [place] [address] [place] [address] Follow up for pain documented as of this encounter Visit Diagnoses Not on filedocumented in this encounter Care Teams Wash And Greaser Relationship Specialty Start Date End Date Shlomo Hu II, MD [address] [facility] 110 [place] [address] PCP - General Internal Medicine 10/06/23 Jacob Sharp [address] [address] [phone] Referring 04/30/[address] [place] [phone] Registered Dietitian Nutrition 06/24/[address] [place] [address] Registered Dietitian Nutrition 08/27/23 Yaun Miller MD, PhD [address] [place] [address] Surgeon General Surgery 02/03/24 documented as of this encounter
--- OUTSIDE RECORDS SUMMARY | 2025-03-28 09:13 | XMS_ITS | Encounter Summary ---
Author Organization [facility] Address [address] [place] [address] Care Team Providers Care Egg Trayer Name Role Phone Jacob Sharp Unavailable Rasheeda Newton RD Unavailable [phone] Unavailable [phone] Firtz HENDERSON MD, Shlomo Momin Primary Care Provider [phone] Yuan Miller MD, PhD Unavailable [phone] Source Comments In the event this information is protected by the Federal Confidentiality of Alcohol and Drug AbusePatient Records regulations: The Federal rules restrict any use of the information to criminally investigate or prosecute any alcohol or drug abuse patient.[facility] Encounter Details Date Type Department Care Team (Late st Contact Info) Description 10/28/2024 Get Medical Advice General Surgery [address] [place] [address] Yuan Miller MD, PhD [address] [place] [address] Medication Social History Tobacco Use Types Packs/Day Years Used Date Smoking Tobacco: Never Smokeless Tobacco: Never Alcohol Use Standard Drinks/Week Comments Not Currently 0 (1 standard drink = 0.6 oz pur e alcohol) [facility] Utilities Answer Date Recorded In the past [...] any time in the past 12 m [facility], were you homeless or living in a group home (including now)? No 10/18/2024 Area Deprivation Index Answer Date Reagan rded National Score (1-100), lower number is lower ri sk 63 03/05/2023 State Score (1-10), lower number is lower risk 4 03/05/2023 Data from: https://www.neighborhoodatlas.[facility]/. Last address used for calculation [address] [...] Office Visit General Surgery [address] [phone] Michael Mora PA-C [address] [place] [address] follow up- add on ok'd by Michael 04/07/2025 1:00 PM EDT [facility] Neurological Sabianist [address] [phone] Agatha Kim PSYD [address] [phone] 04/19/2025 11:00 AM EDT [facility] Neurological Sabianist [address] [place] [address] Joann Loera APRN.MOLD CLOSER HELPER [address] [phone] Cognitive movement issues 04/21/2025 8:30 AM EDT [facility] Nutrition Therapy [address] [phone] Tiffany Banks, RD [address] [place] [address] f/u TF forula tolerance and hydration 05/29/2025 9:00 AM EDT [facility] Gastroenterology [address] [phone] Johanna Martinez MD [facility] [address] [place], [place] [phone] 3 month follow up 06/28/2025 10:00 AM EDT [facility] Neurology Pain [address] [phone] [place] [address] [address] [phone] Follow up for pain documented as of this encounter Visit Diagnoses Not on filedocumented in this encounter Care Teams Egg Trayer Relationship Specialty Start Date End Date Shlomo Hu II, MD [address] [facility] 110 [place] [address] PCP - General Internal Medicine 10/06/23 Jacob Sharp [address] [address] [phone] Referring 04/30/[address] [place] [address] Registered Dietitian Nutrition 06/24/[address] [place] [address] Registered Dietitian Nutrition 08/27/23 Yuan Miller MD, PhD [address] [place] [address] Surgeon General Surgery 02/03/24 documented as of this encounter
--- OUTSIDE RECORDS SUMMARY | 2025-03-28 09:13 | XMS_ITS | Encounter Summary ---
Author Organization [facility] Address [address] [place] [address] Care Team Providers Care Household Appliances Service Technician Name Role Phone Sean Ruiz DO Primary Care Provider [phone] Jacob Sharp Unavailable Rasheeda Newton RD Unavailable [phone] Unavailable [phone] Fritz HENDERSON MD, Shlomo Momin Primary Care Provider [phone] Yuan Miller MD, PhD Unavailable [phone] Source Comments In the event this information is protected by the Federal Confidentiality of Alcohol and Drug AbusePatient Records regulations: The Federal rules restrict any use of the information to criminally investigate or prosecute any alcohol or drug abuse patient.[facility] Encounter Details Date Type Department Care Team (Late st Contact Info) Description 05/25/2013 Patient Msg Medical Records [address] [place] [address] Provider, [facility] Appointment Cancellation Request Social History Tobacco Use [...] AM EDT Office Visit General Surgery [address] [place] [address] Michael Mora PA-C [address] [place] [phone] follow up- add on ok'd by Michael 04/07/2025 1:00 PM EDT [facility] Neurological Holiness [address] [place] [address] Agatha Kim PSYD [address] [place] [address] [phone] 04/19/2025 11:00 AM EDT [facility] Neurological Holiness [address] [place] [address] Joann Loera APRN.BALANCE WEIGHER [address] [place] [address] Cognitive movement issues 04/21/2025 8:30 AM EDT [facility] Nutrition Therapy [address] [place] [address] Tiffany Banks, RD [address] [place] [address] [phone] f/u TF forula tolerance and hydration 05/29/2025 9:00 AM EDT [facility] Gastroenterology [address] [place] [address] Johanna Martinez MD [facility] 20[address] [place] [address] 3 month follow up 06/28/2025 10:00 AM EDT [facility] Neurology Pain [address] [facility] [place] [address] [place] [address] [place] [address] [place], [place] [phone] Follow up for pain documented as of [...] documented as of this encounter Care Teams Household Appliances Service Technician Relationship Specialty [place] [address] [place] [address] PCP - General Family Medicine 07/09/12 10/05/23 Shlomo Hu II, MD [address] [facility] 110 [place] [address] PCP - General Internal Medicine 10/06/23 Jacob Sharp [address] [place] [address] Referring 04/30/[address] [place] [phone] Registered Dietitian Nutrition 06/24/[address] [place] [address] Registered Dietitian Nutrition 08/27/23 Yuan Miller MD, PhD [address] [place] [address] Surgeon General Surgery 02/03/24 documented as of this encounter
--- OUTSIDE RECORDS SUMMARY | 2025-03-28 09:13 | XMS_ITS | Encounter Summary ---
Author Organization [facility] Address [address] [facility] [place] [address] Care Team Providers Care Dat Instructor Name Role Phone Shlomo Hu MD Primary Care Provider Thursday, Toya CAMPOSN Unavailable [phone] Shlomo Hu MD Unavailable [phone] Shante Kumar GAS WELDING MACHINE OPERATOR-FIBER OPTIC ASSEMBLER Unavailable Claribel Scott RN Unavailable [phone] Jess Marsh ORACLE IDENTITY MANAGEMENT CONSULTANT Unavailable Esthela Tesfaye DUST PULLER Unavailable [phone] Encounter Details Date Type Department Care Team (Late st Contact Info) Description 07/13/2024 Abstract [facility] [address] [facility] 110 [place] [address] Shlomo Hu MD 112 [facility] 110 [place] [address] Social History Tobacco Use Types [...] often do you attend chur ch or confucianism services? Never 04/18/2024 Do you belong to any clubs o r organizations such as yarsani groups, unions, fraternal or athletic groups, or [...] Recorded Patient Health Questionnaire-2 Score 1 06/09/2024 [facility] [...] slept in a chcf (including now)? No 03/01/2023 Housing Stability Vital [...] time in the past 12 m [facility], were you homeless or living in a chcf (including now)? 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 Not on file Not on file Not on file documented as of this encounter Plan of Treatment Upcoming Encounters Date Type Department Care Team (Late st Contact Info) Description 04/12/2025 9:50 AM EDT Office Visit [facility] [address] [place] [address] Tanya Lozano MD [address] [place] [address] 04/20/2025 3:00 PM EDT Office Visit [facility] [address] [place] [address] [place] [address] Sonny Rodriguez DPM [address] [address] 05/04/2025 2:50 PM EDT Office Visit [facility] [address] [place] [place] [address] Sonny Rodriguez DPM [address] [address] documented as of this encounter Visit Diagnoses Not on filedocumented in this encounter Additional Health Concerns Assessment Noted Time PHQ-9 Depression Total Score: 18 024 9:42 AM EDT documented as of this encounter Care Teams Dat Instructor Relationship Specialty Start Date End Date Shlomo Hu MD [address] [place] [address] [place] [address] PCP - General Internal Medicine 02/15/23 Shlomo Hu MD [address] [place] [address] [place] [address] PCP - [place] [employer] 05/15/2407/14 Shante Kumar, GAS WELDING MACHINE OPERATOR-FIBER OPTIC ASSEMBLER [address] [place] [address] [place] [address] PCP - Denzel Commercial 07/15/24, DUKE Pittman [address] [place] [address] Licensed Practical Nurse Family Medicine 01/19/24 10/21/24 Claribel Scott, RN [address] [place] [address] Licensed Practical Nurse Family Medicine 10/21/24 12/06/24 Jess Marsh LPN [address] [facility] 110 [place] [address] 12/06/24 Esthela Tesfaye, KIRA [address] [facility] [place] [address] Rug Shampooer Family Medicine 02/03/25 documented as of this encounter
--- OUTSIDE RECORDS SUMMARY | 2025-03-28 09:13 | XMS_ITS | Encounter Summary ---
Author Organization [facility] Address [address] [place] [address] Care Team Providers Care Ash Collector Name Role Phone Jacob Sharp Unavailable Rasheeda Newton RD Unavailable [phone] Unavailable [phone] Fritz HENDERSON MD, Shlomo Momin Primary Care Provider [phone] Yuan Miller MD, PhD Unavailable [phone] Source Comments In the event this information is protected by the Federal Confidentiality of Alcohol and Drug AbusePatient Records regulations: The Federal rules restrict any use of the information to criminally investigate or prosecute any alcohol or drug abuse patient.[facility] Reason for Visit * Reason Onset Date Comments Refill Request 11/06/2024 Encounter Details Date Type Department Care Team (Late st Contact Info) Description 11/06/2024 [place] [address] [address] [place] [address] Johann Echeverria MD [address] [place] [address] [place] [address] Refill Request Social History Tobacco Use Types Packs/Day Years Used Date Smoking Tobacco: Never Smokeless Tobacco: Never Alcohol Use Standard Drinks/Week Comments Not Currently 0 (1 standard drink = 0.6 oz pur e alcohol) [facility] Utilities Answer Date Recorded In the [...] slept in a fci (including now)? No 02/16/2024 Housing Stability Vital [...] any time in the past 12 m [facility], were you homeless or living in a fci (including now)? No 10/18/2024 Area Deprivation Index Answer Date Reagan rded National Score (1-100), lower number is lower ri sk 63 03/05/2023 State Score (1-10), lower number is lower risk 4 03/05/2023 Data from: https://www.neighborhoodatlas.medicine.[facility].edu/. Last address used for calculation [address] [address] 03/05/2023 Comments No [...] Telephone Encounter - Daniela Ford LPN - 11/08/2024 10:43 AM EST Per oarrs medication filled 11/07/24 at [facility] * Telephone Encounter - Daniela Ford LPN - 11/07/2024 8:46 AM EST Oarrs:reviewed Last fill:09/12/25 Jaycee:04/07/24 Patient has no further refills on prescription due to transferring between pharmacies. Patient phones requesting refills as follows: Requested Prescriptions Pending Prescriptions Disp Refills gabapentin (NEURONTIN) 300 mg capsule 90 capsule 5 Sig: Dose clarification: Take gabapentin 300mg + 600mg PO TID. Do not adjust dose upward without written Rx instructions from your physician. See attached Rx. gabapentin (NEURONTIN) 600 mg tablet 90 tablet 5 Sig: Dose clarification: Take gabapentin 300mg + 600mg PO TID. Do not adjust dose upward without written Rx instructions from your physician. See attached Rx. Please review and advise. Daniela Ford LPN documented in this encounter Plan of Treatment Upcoming Encounters Date Type Department Care Team (Latest Contact Info) Description 03/31/2025 11:00 AM EDT Office Visit General Surgery 9300 [place] [address] Michael Mora PA-C [address] [place], [place] [id number] follow up- add on ok'd by Michael 04/07/2025 1:00 PM EDT [facility] Neurological Yarsani [address] [place] [address] Agatha Kim PSYD [address] [place], [place] [phone] 04/19/2025 11:00 AM EDT [facility] Neurological Yarsani [address] [place] [address] Joann Loera APRN.PORTFOLIO ASSISTANT 9500 [place] [address] Cognitive movement issues 04/21/2025 8:30 AM EDT [facility] Nutrition Therapy [address] [place] [address] f/u TF forula tolerance and hydration 05/29/2025 9:00 AM EDT [facility] Gastroenterology [address] [address] Johanna Martinez MD [facility] [address] [place], [place] [id number] 3 month follow up 06/28/2025 10:00 AM EDT [facility] Neurology Pain [address] [place] [address] [place] [address] [place] [address] Follow up for pain documented as of this encounter Visit Diagnoses Diagnosis Visceral hyperalgesia Other symptoms involving abdomen and pelvis Neuralgia and neuritis Neuralgia, neuritis, and radiculitis, unspecified Chronic pain syndrome History of Dylon-en-Y gastric bypass Bariatric surgery status documented in this encounter Care Teams Ash Collector Relationship Specialty Start Date End Date Shlomo Hu II, MD 112 [facility] 110 [place] [address] PCP - General Internal Medicine 10/06/23 Jacob Sharp [address] [facility] [place] [address] Referring 04/30/[address] [place] [id number] Registered Dietitian Nutrition 06/24/[address] [facility] [place] [address] Registered Dietitian Nutrition 08/27/23 Yuan Miller MD, PhD [facility] [place] [id number] Surgeon General Surgery 02/03/24 documented as of this encounter
--- OUTSIDE RECORDS SUMMARY | 2025-03-28 09:14 | XMS_ITS | Encounter Summary ---
Author Organization [facility] Address [address] [place] [address] Care Team Providers Care Electrical Equipment Assembler Name Role Phone Sean Ruiz DO Primary Care Provider [phone] Jacob Sharp Unavailable Rasheeda Newton RD Unavailable [phone] Unavailable [phone] Fritz HENDERSON MD, Shlomo B Primary Care Provider [phone] Yuan Miller MD, PhD Unavailable [phone] Source Comments In the event this information is protected by the Federal Confidentiality of Alcohol and Drug AbusePatient Records regulations: The Federal rules restrict any use of the information to criminally investigate or prosecute any alcohol or drug abuse patient.[facility] Encounter Details Date Type Department Care Team (Late st Contact Info) Description 07/02/2023 Get Medical Advice Gastroenterology [address] [phone] Jorge L Saha PA-C 2048 [facility] [place] [address] TPN and IV hydration Social History Tobacco Use Types Packs/Day Years [...] slept in a jail (including now)? No 09/18/2022 Area Deprivation Index Answer Date Reagan rded National Score (1-100), lower number is lower ri sk 63 03/05/2023 State Score (1-10), lower number is lower risk 4 03/05/2023 Data from: https://www.neighborhoodatlas.[facility]/. Last address used for calculation [address] [place] [address] 03/05/2023 Comments No Sex and Gender Information [...] AM EDT Office Visit General Surgery [address] [place] [phone] Michael Mora PA-C 9500 [place] [address] follow up- add on ok'd by Michael 04/07/2025 1:00 PM EDT [facility] Neurological Yarsani [address] [place] [address] Agatha Kim, DILAN [address]00 [place] [address] 04/19/2025 11:00 AM EDT [facility] Neurological Yarsani [address] [place] [address] Joann Loera APRN.LABORER ELECTROPLATING 9500 [place] [address] Cognitive movement issues 04/21/2025 8:30 AM EDT [facility] Nutrition Therapy [address] [place] [phone] Tiffany Banks, RD [address] [place] [phone] f/u TF forula tolerance and hydration 05/29/2025 9:00 AM EDT [facility] Gastroenterology [address] [place] [phone] Johanna Martinez MD [facility] [address] [place], [place] [phone] 3 month follow up 06/28/2025 10:00 AM EDT [facility] Neurology Pain [address] [place] [address] [place] [address] [place] [phone] Follow up for pain documented as of [...] documented as of this encounter Care Teams Electrical Equipment Assembler Relationship Specialty [place] [address] [place] [address] PCP - General Family Medicine 07/09/12 10/05/23 Shlomo Hu II, MD 112 [facility] 110 [place] [address] PCP - General Internal Medicine 10/06/23 Jacob Sharp [address] [place] [address] Referring 04/30/[address] [phone] Registered Dietitian Nutrition 06/24/[address] [place] [phone] Registered Dietitian Nutrition 08/27/23 Yuan Miller MD, PhD 9500 [place], [place] 2397[address] Surgeon General Surgery 02/03/24 documented as of this encounter
--- OUTSIDE RECORDS SUMMARY | 2025-03-28 09:14 | XMS_ITS | Encounter Summary ---
Author Organization [facility] Address [address] [place] [address] Care Team Providers Care Business Applications Manager Name Role Phone Shlomo Hu MD Primary Care Provider [phone] Jacob Sharp ORIENTAL MEDICINE PRACTITIONER Unavailable [phone] Thursday, Toya INTERNATIONAL LOGISTICS ANALYST Unavailable [phone] Shlomo Hu MD Unavailable [phone] Shante Kumar ROUNDER HAND-SOFTWARE SUPPORT ENGINEER Unavailable Claribel Scott RN Unavailable [phone] Jess Marsh INTERNATIONAL LOGISTICS ANALYST Unavailable Esthela Tesfaye TRACK REPAIR PERSON Unavailable [phone] Encounter Details Date Type Department Care Team (Late st Contact Info) Description 01/09/2024 Clinisync Result Encounter [facility] External Department Unsolicited [...] How often do you attend chur or hindu services? 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 Not on file Not on file Not on file documented as of this encounter Plan of Treatment Upcoming Encounters Date Type Department Care Team (Late st Contact Info) Description 04/12/2025 9:50 AM EDT Office Visit [facility] [address] [place] [phone] Tanya Lozano MD [address] [place] [address] 04/20/2025 3:00 PM EDT Office Visit [facility] [address] [place] [phone] Sonny Rodriguez, DPM [address] [place] [address] 05/04/2025 2:50 PM EDT Office Visit [facility] [address] [place] [phone] Sonny Rodriguez, DPM [address] [place] [address] documented as of this encounter Procedures Procedure Name Priority Date/Time Associated Diagnosis Comments ECG 12-LEAD 01/09/2024 11:44 AM EDT documented in this encounter Results * ECG 12 lead (01/09/2024 11:44 AM EDT) 01/09/2024 11:4 4 AM EDT Narrative [facility] - 01/12/2024 7:23 PM EDT Ventricular Rate : 62 BPM Atrial Rate : 62 BPM P-R Interval : 186 ms QRS Duration : 80 ms Q-T Interval : 428 ms QTC Calculation(Bazett) : 434 ms Calculated P [place] : 52 degrees Calculated R [place] : 18 degrees Calculated T [place] : 12 degrees NORMAL SINUS RHYTHM NORMAL ECG Confirmed by MD SMITH HEBA ([id number]) on 01/12/2024 7:22:59 PM NAME : MELINA TAVERAS PID : [id number] : 1975 Gender : Female Race : ORD : [id number] Procedure Date : Jan 09 2024 11:44:22 Edit Date : Jan 12 2024 19:23:48 Diagnosis: NORMAL SINUS RHYTHM NORMAL ECG Confirmed by MD SMITH HEBA ([id number]) on 01/12/2024 7:22:59 PM Test Reason : Check QT Location : 163 : M63 M63-03 Overread By : MD SMITH HEBA Edited By : MD SMITH HEBA Referred By : , Acquired by : JLUIS TRUJILLO Procedure Note Radiology, Radiologist, MD - 01/12/2024 Ventricular Rate : 62 BPM Atrial Rate : 62 BPM P-R Interval : 186 ms QRS Duration : 80 ms Q-T Interval : 428 ms QTC Calculation(Bazett) : 434 ms Calculated P [place] : 52 degrees Calculated R [place] : 18 degrees Calculated T [place] : 12 degrees NORMAL SINUS RHYTHM NORMAL ECG Confirmed by MD SMITH HEBA ([id number]) on 01/12/2024 7:22:59 PM NAME : MELINA TAVERAS PID : [id number] : 1975 Gender : Female Race : ORD : [id number] Procedure Date : Jan 09 2024 11:44:22 Edit Date : Jan 12 2024 19:23:48 Diagnosis: NORMAL SINUS RHYTHM NORMAL ECG Confirmed by MD SMITH HEBA ([id number]) on 01/12/2024 7:22:59 PM Test Reason : Check QT Location : 163 : M63 M63-03 Overread By : MD SMITH HEBA Edited By : MD SMITH HEBA Referred By : , Acquired by : JLUIS TRUJILLO Generic External Data Provider ECG ORDERABLES F inal Result [facility] documented in this encounter Visit Diagnoses Not on filedocumented in this encounter Additional Health Concerns Assessment Noted Time PHQ-9 Depression Total Score: 9 08/26/20 23 1:30 PM EST documented as of this encounter Care Teams Business Applications Manager Relationship Specialty Start Date End Date Shlomo Hu MD [address] [facility] 110 [place] [address] PCP - General Internal Medicine 02/15/23 [place] [address] [place] [address] PCP - Bagnell Commercial 08/14/23 Shlomo Hu MD [address] [facility] 110 [place] [address] PCP - Bagnell Commercial 05/15/2407/14 Shante Kumar, ROUNDER HAND-SOFTWARE SUPPORT ENGINEER [address] [facility] 160 [place] [address] PCP - Bagnell Commercial 07/15/24 ThursdayToya LPN [address] [facility] 110 [place] [address] Licensed Practical Nurse Family Medicine 01/19/24 10/21/24 Claribel Scott, RN [address] [place] [address] Licensed Practical Nurse Family Medicine 10/21/24 12/06/24 Jess Marsh LPN [address] [facility] 110 [place] [address] 12/06/24 Esthela Tesfaye LSW 14[address] [place] [address] Incident Manager Family Medicine 02/03/25 documented as of this encounter
--- OUTSIDE RECORDS SUMMARY | 2025-03-28 09:14 | XMS_ITS | Encounter Summary ---
Author Organization [facility] Address [address] [place] [address] Care Team Providers Care Tarper Name Role Phone Jacob Sharp Unavailable Rasheeda Newton RD Unavailable [phone] Unavailable [phone] Fritz HENDERSON MD, Shlomo Momin Primary Care Provider [phone] Yuan Miller MD, PhD Unavailable [phone] Source Comments In the event this information is protected by the Federal Confidentiality of Alcohol and Drug AbusePatient Records regulations: The Federal rules restrict any use of the information to criminally investigate or prosecute any alcohol or drug abuse patient.[facility] Encounter Details Date Type Department Care Team (Late st Contact Info) Description 09/02/2024 Get Medical Advice Neurology Pain [address] [place], [place] [phone] [place] [address] [place] [address] Ketamine Social History Tobacco Use Types Packs/Day Years Used Date Smoking Tobacco: Never Smokeless Tobacco: Never Alcohol Use Standard Drinks/Week Comments Not Currently 0 (1 standard drink = 0.6 oz pur e alcohol) [place] Utilities Answer Date Recorded In the past [...] any time in the past 12 m [facility], were you homeless or living in a fpc (including now)? No 08/01/2024 Area Deprivation Index Answer Date Reagan rded National Score (1-100), lower number is lower ri sk 63 03/05/2023 State Score (1-10), lower number is lower risk 4 03/05/2023 Data from: https://www.neighborhoodatlas.[facility]/. Last address used for calculation [address] [address] 03/05/2023 Comments No Sex [...] Miscellaneous Notes * Telephone Encounter - Melina Berger - 09/02/2024 9:38 AM EST Lizy from [employer], which is a 3rd green party for patient's insurance is the ones that are needing the below information. ext [phone] and fax [phone] documented in this encounter Plan of Treatment Upcoming Encounters Date Type Department Care Team (Latest Contact Info) Description 03/31/2025 11:00 AM EDT Office Visit General Surgery [address] [place] [phone] Michael Mora PA-C [address] [place] [phone] follow up- add on ok'd by Michael 04/07/2025 1:00 PM EDT [facility] Neurological Confucianist [address] [place] [address] Agatha Kim PSYD [address]00 [place] [address] 04/19/2025 11:00 AM EDT [facility] Neurological Confucianist [address] [place] [address] Joann Loera APRN.COLLAR STARCHER [address]00 [place] [address] Cognitive movement issues 04/21/2025 8:30 AM EDT [facility] Nutrition Therapy [address] [place] [phone] Tiffany Banks, RD 9500 [place] [address] f/u TF forula tolerance and hydration 05/29/2025 9:00 AM EDT [facility] Gastroenterology [address] [place] [phone] Johanna Martinez MD [facility] [address], [place] [address] 3 month follow up 06/28/2025 10:00 AM EDT [facility] Neurology Pain [address] [place] [address] [place] [address] [place], [place] [phone] Follow up for pain documented as of this encounter Visit Diagnoses Not on filedocumented in this encounter Care Teams Tarper Relationship Specialty Start Date End Date Shlomo Hu II, MD 112 [facility] 110 [place] [address] PCP - General Internal Medicine 10/06/23 Jacob Sharp [address] [place] [phone] Referring 04/30/[address] [place] [address] Registered Dietitian Nutrition 06/24/[address]00 [place] [address] Registered Dietitian Nutrition 08/27/23 Yuan Miller MD, PhD 9500 [place] [address] Surgeon General Surgery 02/03/24 documented as of this encounter
--- OUTSIDE RECORDS SUMMARY | 2025-03-28 09:14 | XMS_ITS | Encounter Summary ---
Author Organization [facility] Address [address] [place] [address] Care Team Providers Care Testing Machine Operator Name Role Phone Jacob Sharp Unavailable Rasheeda Newton RD Unavailable [phone] Unavailable [phone] Fritz HENDERSON MD, Shlomo Momin Primary Care Provider [phone] Yuan Miller MD, PhD Unavailable [phone] Source Comments In the event this information is protected by the Federal Confidentiality of Alcohol and Drug AbusePatient Records regulations: The Federal rules restrict any use of the information to criminally investigate or prosecute any alcohol or drug abuse patient.[facility] Reason for Visit * Reason Comments Patient Update Patient Question Encounter Details Date Type Department Care Team (Late st Contact Info) Description 10/10/2024 Telephone General Surgery [address] [id number] Yuan Miller MD, PhD [address] [place] [address] Patient Update; Patient Question Social History Tobacco Use Types Packs/Day Years Used Date Smoking Tobacco: Never Smokeless Tobacco: Never Alcohol Use Standard Drinks/Week Comments Not Currently 0 (1 standard drink = 0.6 oz pur e alcohol) [facility] Utilities Answer Date Recorded In [...] living in a residential (including now)? No 08/01/2024 Area Deprivation Index Answer Date Reagan rded National Score (1-100), lower number is lower ri sk 63 03/05/2023 State Score (1-10), lower number is lower risk 4 03/05/2023 Data from: https://www.neighborhoodatlas.medicine.[facility]/. Last address used for calculation [address] 03/05/2023 Comments No Sex [...] encounter Miscellaneous Notes * Telephone Encounter - Zach Rodriguez - 10/10/2024 10:34 AM EST Pt called and state that her baldomero jtube can out. She state she has a bandage on. State that it is painful, state that she had a fever 101. And there was back stuff coming out of her tub. I advise that she should have went to emergency with all these systems. She states that she is not going she just want tube back in documented in this encounter Plan of Treatment Upcoming Encounters Date Type Department Care Team (Latest Contact Info) Description 03/31/2025 11:00 AM EDT Office Visit General Surgery 9[address] [place] [address] Michael Mora PA-C [address] [place] [phone] follow up- add on ok'd by Michael 04/07/2025 1:00 PM EDT [facility] Neurological Zoroastrian [address] [place] [phone] Agatha Kim PSYD [address] [place] [address] 04/19/2025 11:00 AM EDT [facility] Neurological Zoroastrian [address] [place] [address] Joann Loera APRN.ICT EDUCATOR [address] [place] [address] Cognitive movement issues 04/21/2025 8:30 AM EDT [facility] Nutrition Therapy [address] [address] Tiffany Banks, RD [address]00 [place] [address] f/u TF forula tolerance and hydration 05/29/2025 9:00 AM EDT [facility] Gastroenterology [address] [place], [place] [phone] Johanna Martinez MD [facility] [address] [address] 3 month follow up 06/28/2025 10:00 AM EDT [facility] Neurology Pain [address] [place] [address] [place] [address] [place] [address] Follow up for pain documented as of this encounter Visit Diagnoses Not on filedocumented in this encounter Care Teams Testing Machine Operator Relationship Specialty Start Date End Date Shlomo Hu II, MD 112 [facility] 110 [place] [address] PCP - General Internal Medicine 10/06/23 Jacob Sharp [address] [place] [phone] Referring 04/30/[address] [place] [phone] Registered Dietitian Nutrition 06/24/[address] [place] [phone] Registered Dietitian Nutrition 08/27/23 Yuan Miller MD, PhD [address] [place] [phone] Surgeon General Surgery 02/03/24 documented as of this encounter
--- OUTSIDE RECORDS SUMMARY | 2025-03-28 09:14 | XMS_ITS | Encounter Summary ---
Author Organization [facility] Address [address] [place] [address] Care Team Providers Care Casting House Laborer Name Role Phone Sean Ruiz DO Primary Care Provider [phone] Jacob Sharp Unavailable Rasheeda Newton RD Unavailable [phone] Unavailable [phone] Fritz HENDERSON MD, Shlomo Momin Primary Care Provider [phone] Yuan Miller MD, PhD Unavailable [phone] Source Comments In the event this information is protected by the Federal Confidentiality of Alcohol and Drug AbusePatient Records regulations: The Federal rules restrict any use of the information to criminally investigate or prosecute any alcohol or drug abuse patient.[facility] Encounter Details Date Type Department Care Team (Late st Contact Info) Description 06/26/2023 Patient Msg Gastroenterology [address] [id number] Provider, Ccf Nutrition Notes Social History Tobacco Use Types Packs/Day Years [...] slept in a retirement (including now)? No 09/18/2022 Area Deprivation Index Answer Date Reagan rded National Score (1-100), lower number is lower ri sk 63 03/05/2023 State Score (1-10), lower number is lower risk 4 03/05/2023 Data from: https://www.neighborhoodatlas.medicine.[facility].edu/. Last address used for calculation [...] AM EDT Office Visit General Surgery 9300 [place] [address] Michael Mora PA-C 9500 [place] [address] follow up- add on ok'd by Michael 04/07/2025 1:00 PM EDT [facility] Neurological Christianity [address] [place] [id number] Agatha Kim PSYD [address] [place] [phone] 04/19/2025 11:00 AM EDT [facility] Neurological Christianity 9300 [place] [address] Joann Loera APRN.MILLER HELPER 9500 [place] [address] Cognitive movement issues 04/21/2025 8:30 AM EDT [facility] Nutrition Therapy [address] [place] [phone] Tiffany Banks, RD [address] [place] [id number] f/u TF forula tolerance and hydration 05/29/2025 9:00 AM EDT [facility] Gastroenterology [address] [place] [phone] Johanna Martinez MD [facility] [address] [place], [place] [address] 3 month follow up 06/28/2025 10:00 AM EDT [facility] Neurology Pain [address] [place] [address] [place] [address] [place] [address] Follow up for pain documented as of [...] documented as of this encounter Care Teams Casting House Laborer Relationship Specialty [place] [address] [place] [address] PCP - General Family Medicine 07/09/12 10/05/23 Shlomo Hu II, MD [address] [facility] 110 [place] [address] PCP - General Internal Medicine 10/06/23 Jacob Sharp [address] [place] [address] Referring 04/30/[address] [address] Registered Dietitian Nutrition 06/24/[address] [facility] [place] [address] Registered Dietitian Nutrition 08/27/23 Yuan Miller MD, PhD 6093 [place] [address] Surgeon General Surgery 02/03/24 documented as of this encounter
--- OUTSIDE RECORDS SUMMARY | 2025-03-28 09:14 | XMS_ITS | Encounter Summary ---
Author Organization [facility] Address [facility] [id number] [address] [facility] [place] [address] Care Team Providers Care Sales Enablement Consultant Name Role Phone Skylar Echavarria JOSE-MACHINE FITTER Primary Care Provider + Encounter Details Date Type Department Care Team (Late st Contact Info) Description 07/17/2021 Orders Only [facility] [address] [place] [id number] External, Scanning Provider Social History Tobacco Use Types Packs/Day Years Used Date Smoking Tobacco: Never Smokeless Tobacco: Never Childcare Answer Date Recorded Childcare Unknown 02/22/2019 Employment Answer Date Recorded Employment Unknown 02/22/2019 Comments No Sex and Gender Information Value Date Recorded Sex Assigned at Female 01/20/2023 6:09 PM EDT Legal Sex Female 8:11 PM EDT Gender Identity Female 01/20/2023 6:09 PM EDT Sexual Orientation Not on file documented as of this encounter Plan of Treatment Not on file documented as of this encounter Procedures Procedure Name Priority Date/Time Associated Diagnosis Comments MULTIPLE LABS Routine 05/05/2021 MULTIPLE LABS Routine 02/16/2021 MULTIPLE LABS Routine 02/15/2021 MULTIPLE LABS Routine 02/12/2021 documented in this encounter Results * Multiple labs (05/05/2021) us Scanning Provider External MA IMAGING Final Result MANUALLY TRANSCRIBED RESULTS * Multiple labs (02/16/2021) us Scanning Provider External MA IMAGING Final Result Performing Organization Address [facility] de Phone Number MANUALLY TRANSCRIBED RESULTS * Multiple labs (02/15/2021) us Scanning Provider External MA IMAGING Final Result Performing Organization Address [facility] de Phone Number MANUALLY TRANSCRIBED RESULTS * Multiple labs (02/12/2021) us Scanning Provider External MA IMAGING Final Result Performing Organization Address [facility] de Phone Number MANUALLY TRANSCRIBED RESULTS documented in this encounter Visit Diagnoses Not on filedocumented in this encounter Additional Health Concerns Infection Onset Date Last Indicated Resolved Time Respiratory Rule-Out 12/12/2021 12/12/2021 022 2:38 PM EDT documented as of this encounter Care Teams Sales Enablement Consultant Relationship Specialty Start Date End Date Skylar Echavarria APRN-MACHINE FITTER [address] [facility] [place] [address] PCP - General Internal Medicine 11/18/23 documented as of this encounter
--- OUTSIDE RECORDS SUMMARY | 2025-03-28 09:14 | XMS_ITS | Encounter Summary ---
Author Organization [facility] Address [address] [facility] [place] [address] Care Team Providers Care Hotel Service Supervisor Name Role Phone Shlomo Hu MD Primary Care Provider Jacob Sharp EMG TECHNICIAN Unavailable Thursday, Toya INVESTIGATIVE REPORTER Unavailable [phone] Shlomo Hu MD Unavailable [phone] Shante Kumar SOURCING INTERN-RETIREMENT OFFICER Unavailable Claribel Scott RN Unavailable Maximo Jess INVESTIGATIVE REPORTER Unavailable Esthela Tesfaye REAL ESTATE SALES SUPERVISOR Unavailable Encounter Details Date Type Department Care Team (Late st Contact Info) Description 01/13/2024 Abstract [facility] [address] [facility] 110 [place] [address] Shlomo Hu MD 112 [facility] 110 [place] [address] Social History Tobacco Use Types [...] week 03/01/2023 How often do you attend [facility] or islam services? 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 on file Not on file Not on file documented as of this encounter Plan of Treatment Upcoming Encounters Date Type Department Care Team (Late st Contact Info) Description 04/12/2025 9:50 AM EDT Office Visit [facility] [address] [place] [address] Tanya Lozano MD [address], [address] [place] [address] 04/20/2025 3:00 PM EDT Office Visit [facility] [address] [place] [address] Sonny Rodriguez DPM [address] [address] 05/04/2025 2:50 PM EDT Office Visit [facility] [address] [place] [address] Sonny Rodriguez DPM [address] [address] documented as of this encounter Visit Diagnoses Not on filedocumented in this encounter Additional Health Concerns Assessment Noted Time PHQ-9 Depression Total Score: 9 08/26/20 23 1:30 PM EST documented as of this encounter Care Teams Hotel Service Supervisor Relationship Specialty Start Date End Date Shlomo Hu MD [address] [place] [address] PCP - General Internal Medicine 02/15/23 [place] [address] [place] [address] PCP - Denzel Mckeon 08/14/23 Shlomo Hu MD [address] [place] [address] PCP - [place] [employer] 05/15/2407/14 Shante Kumar, SOURCING INTERN-RETIREMENT OFFICER [address] [place] [address] PCP - [place] [employer] 07/15/24 ThursdayToya LPN [address] [place] [address] Licensed Practical Nurse Family Medicine 01/19/24 10/21/24 Claribel Scott, RN [address] [place] [address] Licensed Practical Nurse Family Medicine 10/21/24 12/06/24 Jess Marsh LPN [address] [facility] 110 [place] [address] 12/06/24 Esthela Tesfaye, KIRA 14[address] [place] [address] Ammonium Sulfate Operator Family Medicine 02/03/25 documented as of this encounter
--- OUTSIDE RECORDS SUMMARY | 2025-03-28 09:14 | XMS_ITS | Encounter Summary ---
Author Organization [facility] Address [address] [place] [address] Care Team Providers Care Paper Mill Supervisor Name Role Phone Jacob Sharp Unavailable Rasheeda Newton RD Unavailable [phone] Unavailable [phone] Fritz HENDERSON MD, Shlomo Momin Primary Care Provider [phone] Yuan Miller MD, PhD Unavailable [phone] Source Comments In the event this information is protected by the Federal Confidentiality of Alcohol and Drug AbusePatient Records regulations: The Federal rules restrict any use of the information to criminally investigate or prosecute any alcohol or drug abuse patient.[facility] Encounter Details Date Type Department Care Team (Late st Contact Info) Description 07/25/2024 Patient Msg General Surgery 9[address] [place] [address] Yuan Miller MD, PhD [address] [place] [address] CT Results Social History Tobacco Use Types Packs/Day Years Used Date Smoking Tobacco: Never Smokeless Tobacco: Never Alcohol Use Standard Drinks/Week Comments Not Currently 0 (1 standard drink = 0.6 oz pur e alcohol) [facility] Utilities Answer Date Recorded In the past 12 months has th e electric, gas, oil, or water company threatened to shut off services in your home? No 07/08/2024 AUDIT-C Answer Date Recorded Q1: How often [...] the money to buy more. Never true 07/08/20 24 Within the past 12 months, t he food you bought just didn't last and you didn't have money to get more. Never true 07/08/2024 PRAPARE - Transportation Answer Date Re corded In the past 12 months, has l ack of transportation kept you from medical appointments or from getting medications? No 06/15 In the past 12 months, has l ack of transportation kept you from meetings, work, or from getting things needed for daily living? No 07/08/2024 Housing Stability Vital Sign Answer Luis Miguel [...] the mortgage or rent on time? No 07/08/2024 In the past 12 months, how m any times have you moved where you were living? 0 07/08/2024 At any time in the past 12 m [facility], were you homeless or living in a group home (including now)? No 07/08/2024 Area Deprivation Index Answer Date Reagan rded National Score (1-100), lower number is lower ri sk 63 03/05/2023 State Score (1-10), lower number is lower risk 4 03/05/2023 Data from: https://www.neighborhoodatlas.medicine.[facility]/. Last address used for calculation [address] 03/05/2023 Comments No [...] Lubna Dang RN documented in this encounter Plan of Treatment Upcoming Encounters Date Type Department Care Team (Latest Contact Info) Description 03/31/2025 11:00 AM EDT Office Visit General Surgery [address] [place] [id number] Michael Mora PA-C [address] [place] [phone] follow up- add on ok'd by Michael 04/07/2025 1:00 PM EDT [facility] Neurological Restorationism [address] [place] [phone] Agatha Kim PSYD [address] [place] [phone] 04/19/2025 11:00 AM EDT [facility] Neurological Restorationism [address] [place] [phone] Joann Loera APRN.FORKLIFT OPERATOR [address] [place] [id number] Cognitive movement issues 04/21/2025 8:30 AM EDT [facility] Nutrition Therapy [address] [place] [phone] Tiffany Banks, RD [address] [place] 6137195 f/u TF forula tolerance and hydration 05/29/2025 9:00 AM EDT [facility] Gastroenterology [address] [place] [phone] Johanna Martinez MD [facility] [address] [place], [place] [address] 3 month follow up 06/28/2025 10:00 AM EDT [facility] Neurology Pain [address] [place] 6137106 Wilma Lei, [address] [place] [id number] Follow up for pain documented as of this encounter Visit Diagnoses Not on filedocumented in this encounter Additional Health Concerns Infection Onset Date Last Indicated Resolved Time COVID-19 Rule-Out 07/29/2024 07/29/2024 07/29/2024 7:20 PM EST documented as of this encounter Care Teams Paper Mill Supervisor Relationship Specialty Start Date End Date Shlomo Hu II, MD [address] [place] [address] [place] [address] PCP - General Internal Medicine 10/06/23 Jacob Sharp [address] [place] [id number] Referring 04/30/[address] [place] [phone] Registered Dietitian Nutrition 06/24/[address] [facility] [place] [phone] Registered Dietitian Nutrition 08/27/23 Yuan Miller MD, PhD [address] [place] [address] Surgeon General Surgery 02/03/24 documented as of this encounter
--- OUTSIDE RECORDS SUMMARY | 2025-03-28 09:14 | XMS_ITS | Encounter Summary ---
Author Organization [facility] Address [address] [place] [address] Care Team Providers Care Therapeutic Sales Specialist Name Role Phone Jacob Sharp Unavailable Rasheeda Newton RD Unavailable [phone] Unavailable [phone] Fritz HENDERSON MD, Shlomo Momin Primary Care Provider [phone] Yuan Miller MD, PhD Unavailable [phone] Source Comments In the event this information is protected by the Federal Confidentiality of Alcohol and Drug AbusePatient Records regulations: The Federal rules restrict any use of the information to criminally investigate or prosecute any alcohol or drug abuse patient.[facility] Encounter Details Date Type Department Care Team (Late st Contact Info) Description 07/27/2024 Patient Msg Neurology [address] [place], [place] [phone] Provider, Ccf Ketamine instructions Social History Tobacco Use Types Packs/Day Years Used Date Smoking Tobacco: Never Smokeless Tobacco: Never Alcohol Use Standard Drinks/Week Comments Not Currently 0 (1 standard drink = 0.6 oz pur e alcohol) [facility] Utilities Answer Date Recorded In the past 12 months has th e [employer], gas, oil, or water company threatened to [...] in a care home (including now)? No 02/16/2024 Housing Stability [...] any time in the past 12 m [facility], were you homeless or living in a care home (including now)? No 07/08/2024 Area Deprivation Index Answer Date Reagan rded National Score (1-100), lower number is lower ri sk 63 03/05/2023 State Score (1-10), lower number is lower risk 4 03/05/2023 Data from: https://www.neighborhoodatlas.medicine.[facility]/. Last address used for calculation [address] [...] AM EDT Office Visit General Surgery [address] [place] [phone] Michael Mora PA-C [address] [place] [address] follow up- add on ok'd by Michael 04/07/2025 1:00 PM EDT [facility] Neurological Confucianism [address] [place] [phone] Agatha Kim PSYD [address] [place] [address] 04/19/2025 11:00 AM EDT [facility] Neurological Confucianism [address] [place] [phone] Joann Loera APRN.POLICY SPECIALIST 9500 [place] [address] Cognitive movement issues 04/21/2025 8:30 AM EDT [facility] Nutrition Therapy [address]48 [place] [address] Tiffany Banks, RD [address] [place] [id number] f/u TF forula tolerance and hydration 05/29/2025 9:00 AM [facility] Gastroenterology 2048 [place] [address] Johanna Martinez MD [facility] [address] [place], [place] [address] 3 month follow up 06/28/2025 10:00 AM T [facility] Neurology Pain [address] [place] [phone] [place] [address] [place] [address] Follow up for pain documented as of this encounter Visit Diagnoses Not on filedocumented in this encounter Additional Health Concerns Infection Onset Date Last Indicated Resolved Time COVID-19 Rule-Out 07/29/2024 07/29/2024 07/29/2024 7:20 PM EST documented as of this encounter Care Teams Therapeutic Sales Specialist Relationship Specialty Start Date End Date Shlomo Hu II, MD [address] [facility] 110 [place] [address] PCP - General Internal Medicine 10/06/23 Jacob Sharp [address] [place] [address] Referring 04/30/[address] [place] [address] Registered Dietitian Nutrition 06/24/[address] [place] [address] Registered Dietitian Nutrition 08/27/23 Yuan Miller MD, PhD [address] [place] [address] Surgeon General Surgery 02/03/24 documented as of this encounter
--- OUTSIDE RECORDS SUMMARY | 2025-03-28 09:14 | XMS_ITS | Encounter Summary ---
Author Organization [facility] Address [address] [place] [address] Care Team Providers Care Truss Builder Name Role Phone Sean Ruiz DO Primary Care Provider [phone] Jacob Sharp Unavailable Rasheeda Newton RD Unavailable [phone] Unavailable [phone] Fritz HENDERSON MD, Shlomo Momin Primary Care Provider [phone] Yuan Miller MD, PhD Unavailable [phone] Source Comments In the event this information is protected by the Federal Confidentiality of Alcohol and Drug AbusePatient Records regulations: The Federal rules restrict any use of the information to criminally investigate or prosecute any alcohol or drug abuse patient.[facility] Encounter Details Date Type Department Care Team (Late st Contact Info) Description 06/21/2023 Patient Msg Nutrition Therapy [address] [phone] Provider, [facility]cf Nutrition visit tomorrow Social History Tobacco Use Types Packs/Day Years [...] in a long term (including now)? No 09/18/2022 Area Deprivation Index Answer Date Reagan rded National Score (1-100), lower number is lower ri sk 63 03/05/2023 State Score (1-10), lower number is lower risk 4 03/05/2023 Data from: https://www.neighborhoodatlas.medicine.[facility].edu/. Last address used for calculation [address] [...] AM EDT Office Visit General Surgery 9300 [place] [address] Michael Mora PA-C [address] [place], [place] [phone] follow up- add on ok'd by Michael 04/07/2025 1:00 PM EDT [facility] Neurological Zoroastrian [address] [place] [phone] Agatha Kim PSYD [address] [place] [phone] 04/19/2025 11:00 AM EDT [facility] Neurological Zoroastrian [address] [place] [phone] Joann Loera APRN.CLERICAL OFFICE 9500 [place] [address] Cognitive movement issues 04/21/2025 8:30 AM EDT [facility] Nutrition Therapy [address] [place] [phone] Tiffany Banks, RD [address] [place] 3078395 f/u TF forula tolerance and hydration 05/29/2025 9:00 AM EDT [facility] Gastroenterology [address] [place] [phone] Johanna Martinez MD [facility] [address] [place], [place] [address] 3 month follow up 06/28/2025 10:00 AM EDT [facility] Neurology Pain [address] [place] 3078306 [place] [address] [place] [address] Follow up for pain documented as of [...] documented as of this encounter Care Teams Truss Builder Relationship Specialty Start [place] [address] [place] [address] PCP - General Family Medicine 07/09/12 10/05/23 Shlomo Hu II, MD [address] [facility] 110 [place] [address] PCP - General Internal Medicine 10/06/23 Jacob Sharp [address] [place] [address] Referring 04/30/[address], [place] [address] Registered Dietitian Nutrition 06/24/[address] [facility] [place] [address] Registered Dietitian Nutrition 08/27/23 Yuan Miller MD, PhD [facility]4 [place] [address] Surgeon General Surgery 02/03/24 documented as of this encounter
--- OUTSIDE RECORDS SUMMARY | 2025-03-28 09:14 | XMS_ITS | Encounter Summary ---
Author Organization [facility] Address [address] [place] [address] Care Team Providers Care Superior Court Judge Name Role Phone Sean Ruiz DO Primary Care Provider [phone] Jacob Sharp Unavailable Rasheeda Newton RD Unavailable [phone] Unavailable [phone] Fritz HENDERSON MD, Shlomo B Primary Care Provider [phone] Yuan Miller MD, PhD Unavailable [phone] Source Comments In the event this information is protected by the Federal Confidentiality of Alcohol and Drug AbusePatient Records regulations: The Federal rules restrict any use of the information to criminally investigate or prosecute any alcohol or drug abuse patient.[facility] Encounter Details Date Type Department Care Team (Late st Contact Info) Description 06/29/2023 Patient Msg Hematology/Oncology [address] [place] [address] Lacey Youssef, CONSULTING MARINE ENGINEER.NEON PUMPER [address] [place] [address] Labs Social History Tobacco Use Types Packs/Day Years [...] slept in a alf (including now)? No 09/18/2022 Area Deprivation Index Answer Date Reagan rded National Score (1-100), lower number is lower ri sk 63 03/05/2023 State Score (1-10), lower number is lower risk 4 03/05/2023 Data from: https://www.neighborhoodatlas.[facility]/. Last address used for calculation [address] [place] [address] 03/05/2023 Comments No Sex and Gender Information [...] AM EDT Office Visit General Surgery [address] [place] [phone] Michael Mora PA-C [address]00 [place] [address] follow up- add on ok'd by Michael 04/07/2025 1:00 PM EDT [facility] Neurological Denominational [address] [place] [address] Agatha Kim, DILAN [address] [place] [address] 04/19/2025 11:00 AM EDT [facility] Neurological Denominational [address] [place] [address] Joann Loera APRN.NEON PUMPER [address] [place] [address] Cognitive movement issues 04/21/2025 8:30 AM EDT [facility] Nutrition Therapy [address] [place] [address] [phone] Tiffany Banks, RD [address] [place] [phone] f/u TF forula tolerance and hydration 05/29/2025 9:00 AM EDT [facility] Gastroenterology [address] [place] 0101206 Johanna Martinez MD [facility] [address] [place], [place] [address] 3 month follow up 06/28/2025 10:00 AM EDT [facility] Neurology Pain [address] [place] [address] [place] [address] [place] [phone] Follow up for pain documented as of [...] documented as of this encounter Care Teams Superior Court Judge Relationship Specialty [place] [address] [place] [address] PCP - General Family Medicine 07/09/12 10/05/23 Shlomo Hu II, MD 112 [facility] 110 [place] [address] PCP - General Internal Medicine 10/06/23 Jacob Sharp [address] [place] [address] Referring 04/30/[address] [phone] Registered Dietitian Nutrition 06/24/[address] [place] [phone] Registered Dietitian Nutrition 08/27/23 Yuan Miller MD, PhD [address] [place], [place] 1096295 Surgeon General Surgery 02/03/24 documented as of this encounter
--- OUTSIDE RECORDS SUMMARY | 2025-03-28 09:14 | XMS_ITS | Encounter Summary ---
Author Organization [facility] Address [address] [facility] [place] [address] Care Team Providers Care Microelectronics Technician Name Role Phone Shlomo Hu MD Primary Care Provider Jacob Sharp LAB TECH Unavailable [phone] Thursday, Toya WATER TANKER DRIVER Unavailable [phone] Shlomo Hu MD Unavailable [phone] Shante Kumar AD TRAFFICKER-STRUCTURAL ENGINEERING DRAFTING OFFICER Unavailable Claribel Scott RN Unavailable Maximo Jess WATER TANKER DRIVER Unavailable Esthela Tesfaye PARACHUTE TAPER Unavailable Encounter Details Date Type Department Care Team (Late st Contact Info) Description 03/07/2024 Abstract [facility] [address] [facility] 110 [place] [address] Shlomo Hu MD 112 [facility] 110 [place] [address] Social History Tobacco Use Types [...] 03/01/2023 How often do you attend [facility] or mandaeism services? 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 Not on file Not on file documented as of this encounter Plan of Treatment Upcoming Encounters Date Type Department Care Team (Late st Contact Info) Description 04/12/2025 9:50 AM EDT Office Visit [facility] [address] [place] [address] Tanya Lozano MD [address] [place] [address] 04/20/2025 3:00 PM EDT Office Visit [facility] [address] [place] [address] Sonny Rodriguez DPM [address] [address] 05/04/2025 2:50 PM EDT Office Visit [facility] [address] [place] [address] Sonny Rodriguez DPM [address] [address] documented as of this encounter Visit Diagnoses Not on filedocumented in this encounter Additional Health Concerns Assessment Noted Time PHQ-9 Depression Total Score: 9 08/26/20 23 1:30 PM EST documented as of this encounter Care Teams Microelectronics Technician Relationship Specialty Start Date End Date Shlomo Hu MD [address] [place] [address] PCP - General Internal Medicine 02/15/23 [place] [address] [place] [address] PCP - Denzel Mckeon 08/14/23 Shlomo Hu MD [address] [place] [address] PCP - Alice Commercial 05/15/2407/14 Shante Kumar, AD TRAFFICKER-STRUCTURAL ENGINEERING DRAFTING OFFICER [address] [place] [address] PCP - Alice Commercial 07/15/24 ThursdayToya LPN [address] [place] [address] Licensed Practical Nurse Family Medicine 01/19/24 10/21/24 Claribel Scott, RN [address] [place] [address] Licensed Practical Nurse Family Medicine 10/21/24 12/06/24 Jess Marsh LPN [address] [facility] 110 [place] [address] 12/06/24 Esthela Tesfaye, KIRA [address] [place] [address] Jackscrew Worker Family Medicine 02/03/25 documented as of this encounter
--- OUTSIDE RECORDS SUMMARY | 2025-03-28 09:14 | XMS_ITS | Encounter Summary ---
Author Organization [facility] Address [address] [facility] [place] [address] Care Team Providers Care Landscape Drafter Name Role Phone Shlomo Hu MD Primary Care Provider Jacob Sharp GAS TRANSFER OPERATOR Unavailable Thursday, Toya MANAGER MUTUAL FUND Unavailable [phone] Shlomo Hu MD Unavailable [phone] Shante Kumar HEATING ELEMENT WINDER-SCHOOL BUSINESS ADMINISTRATOR Unavailable Claribel Scott RN Unavailable Maximo Jess MANAGER MUTUAL FUND Unavailable Esthela Tesfaye SAFETY MANAGER Unavailable Encounter Details Date Type Department Care Team (Late st Contact Info) Description 02/09/2024 Abstract [facility] [address] [facility] 110 [place] [address] Shlomo Hu MD [address] [facility] 110 [place] [address] Social History Tobacco Use Types [...] week 03/01/2023 How often do you attend [facility] or anglican services? 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 Not on file Not on file documented as of this encounter Plan of Treatment Upcoming Encounters Date Type Department Care Team (Late st Contact Info) Description 04/12/2025 9:50 AM EDT Office Visit [facility] [address] [place] [address] Tanya Lozano MD [address], [address] [place] [address] 04/20/2025 3:00 PM EDT Office Visit [facility] [address] [place] [address] Sonny Rodriguez DPM [address] [address] 05/04/2025 2:50 PM EDT Office Visit [facility] [address] [place] [address] Sonny Rodriguez DPM [address] [address] documented as of this encounter Visit Diagnoses Not on filedocumented in this encounter Additional Health Concerns Assessment Noted Time PHQ-9 Depression Total Score: 9 08/26/20 23 1:30 PM EST documented as of this encounter Care Teams Landscape Drafter Relationship Specialty Start Date End Date Shlomo Hu MD [address] [place] [address] PCP - General Internal Medicine 02/15/23 [place] [address] [place] [address] PCP - Denzel Mckeon 08/14/23 Shlomo Hu MD [address] [place] [address] PCP - [place] Commercial 05/15/2407/14 Shante Kumar, HEATING ELEMENT WINDER[employer]SCHOOL BUSINESS ADMINISTRATOR [address] [place] [address] PCP - [place] Commercial 07/15/24 ThursdayToya LPN [address] [place] [address] Licensed Practical Nurse Family Medicine 01/19/24 10/21/24 Claribel Scott, RN [address] [place] [address] Licensed Practical Nurse Family Medicine 10/21/24 12/06/24 Jess Marsh LPN [address] [facility] 110 [place] [address] 12/06/24 Esthela Tesfaye, KIRA [address] [place] [address] Engineer Systems Family Medicine 02/03/25 documented as of this encounter
--- OUTSIDE RECORDS SUMMARY | 2025-03-28 09:14 | XMS_ITS | Encounter Summary ---
Author Organization [facility] Address [address] [place] [address] Care Team Providers Care Marine Oiler Name Role Phone Sean Ruiz DO Primary Care Provider [phone] Jacob Sharp Unavailable Rasheeda Newton RD Unavailable [phone] Unavailable [phone] Fritz HENDERSON MD, Shlomo B Primary Care Provider [phone] Yuan Miller MD, PhD Unavailable [phone] Source Comments In the event this information is protected by the Federal Confidentiality of Alcohol and Drug AbusePatient Records regulations: The Federal rules restrict any use of the information to criminally investigate or prosecute any alcohol or drug abuse patient.[facility] Encounter Details Date Type Department Care Team (Late st Contact Info) Description 07/16/2023 Get Medical Advice Gastroenterology [address] [id number] Nhi Salas, PROFESSIONAL WRESTLER.PALLIATIVE CARE NURSE PRACTITIONER [address] [place] [address] Appointment set up Social History Tobacco Use Types Packs/Day [...] slept in a assisted (including now)? No 09/18/2022 Area Deprivation Index Answer Date Reagan rded National Score (1-100), lower number is lower ri sk 63 03/05/2023 State Score (1-10), lower number is lower risk 4 03/05/2023 Data from: https://www.neighborhoodatlas.[facility].[place].[facility]/. Last address used for calculation [address] [facility] [place] [facility] [place] [place] [address] 03/05/2023 Comments No Sex and Gender [...] AM EDT Office Visit General Surgery 9[address] [place] [address] Michael Mora PA-C [address] [place] [address] follow up- add on ok'd by Michael 04/07/2025 1:00 PM EDT [facility] Neurological [facility]ab[facility]ist [address] [place] [address] Agatha Kim, DILAN [address] [place] [address] 04/19/2025 11:00 AM EDT [facility] Neurological Anabaptist [address] [place] [address] Joann Loera APRN.PALLIATIVE CARE NURSE PRACTITIONER [address] [place] [address] Cognitive movement issues 04/21/2025 8:30 AM EDT [facility] Nutrition Therapy [address] [place] [id number] Tiffany Banks, RD [address] [place] [phone] f/u TF forula tolerance and hydration 05/29/2025 9:00 AM EDT [facility] Gastroenterology [address] [place] [phone] Johanna Martinez MD [facility] [address] [place], [place] [address] 3 month follow up 06/28/2025 10:00 AM EDT [facility] Neurology Pain [address] [place] [phone] [place] [address] [place] [id number] Follow up for pain documented as of [...] documented as of this encounter Care Teams Marine Oiler Relationship Specialty [place] [address] [place] [address] PCP - General Family Medicine 07/09/12 10/05/23 Shlomo Hu II, MD [address] [facility] 110 [place] [address] PCP - General Internal Medicine 10/06/23 Jacob Sharp [address] [place] [address] Referring 04/30/[address] [place] [id number] Registered Dietitian Nutrition 06/24/[address] [place] [address] Registered Dietitian Nutrition 08/27/23 Yuan Miller MD, PhD [address] [place], [place] [phone] Surgeon General Surgery 02/03/24 documented as of this encounter
--- OUTSIDE RECORDS SUMMARY | 2025-03-28 09:14 | XMS_ITS | Encounter Summary ---
Author Organization [facility] Address [address] [place] [address] Care Team Providers Care Tiler Name Role Phone Jacob Sharp Unavailable Rasheeda Newton RD Unavailable [phone] Unavailable [phone] Fritz HENDERSON MD, Shlomo Momin Primary Care Provider [phone] Yuan Miller MD, PhD Unavailable [phone] Source Comments In the event this information is protected by the Federal Confidentiality of Alcohol and Drug AbusePatient Records regulations: The Federal rules restrict any use of the information to criminally investigate or prosecute any alcohol or drug abuse patient.[facility] Encounter Details Date Type Department Care Team (Late st Contact Info) Description 10/10/2024 Get Medical Advice General Surgery [address] [place] [address] Michael Mora PA-C [address] [place] [address] Feeding tube replacement Social History Tobacco Use Types Packs/Day Years Used Date Smoking Tobacco: Never Smokeless Tobacco: Never Alcohol Use Standard Drinks/Week Comments Not Currently 0 (1 standard drink = 0.6 oz pur e alcohol) [facility] Utilities Answer Date Recorded In [...] living in a detention (including now)? No 08/01/2024 Area Deprivation Index Answer Date Reagan rded National Score (1-100), lower number is lower ri sk 63 03/05/2023 State Score (1-10), lower number is lower risk 4 03/05/2023 Data from: https://www.neighborhoodatlas.medicine.[facility]/. Last address used for calculation [address] [...] AM EDT Office Visit General Surgery [address] [place] [phone] Michael Mora PA-C [address] [place] [id number] follow up- add on ok'd by Michael 04/07/2025 1:00 PM EDT [facility] Neurological Moravian [address] [place] [phone] Agatha Kim PSYD [address] [place] [phone] 04/19/2025 11:00 AM EDT [facility] Neurological Moravian [address] [place] [phone] Joann Loera APRN.STREET LIGHT SERVICER SUPERVISOR [address] [place] [phone] Cognitive movement issues 04/21/2025 8:30 AM EDT [facility] Nutrition Therapy [address] [place] [phone] Tiffany Banks, RD [address] [place] [phone] f/u TF forula tolerance and hydration 05/29/2025 9:00 AM EDT [facility] Gastroenterology [address] [place] 0558506 Johanna Martinez MD [facility] [address] [place] [address] 3 month follow up 06/28/2025 10:00 AM EDT [facility] Neurology Pain [address] [place] [phone] [place] [address] [place] [id number] Follow up for pain documented as of this encounter Visit Diagnoses Not on filedocumented in this encounter Care Teams Tiler Relationship Specialty Start Date End Date Shlomo Hu II, MD [address] [place] [place] [address] PCP - General Internal Medicine 10/06/23 Jacob Sharp [address] [place] [phone] Referring 04/30/[address] [place] [phone] Registered Dietitian Nutrition 06/24/[address] [place] [address] Registered Dietitian Nutrition 08/27/23 Yuan Miller MD, PhD [address] [place] [address] Surgeon General Surgery 02/03/24 documented as of this encounter
--- OUTSIDE RECORDS SUMMARY | 2025-03-28 09:14 | XMS_ITS | Encounter Summary ---
Author Organization [facility] Address [address] [place], [place] [address] Care Team Providers Care Executive Business Coach Name Role Phone Jacob Sharp Unavailable Rasheeda Newton RD Unavailable [phone] Unavailable [phone] Fritz HENDERSON MD, Shlomo Momin Primary Care Provider [phone] Yuan Miller MD, PhD Unavailable [phone] Source Comments In the event this information is protected by the Federal Confidentiality of Alcohol and Drug AbusePatient Records regulations: The Federal rules restrict any use of the information to criminally investigate or prosecute any alcohol or drug abuse patient.[facility] Encounter Details Date Type Department Care Team (Late st Contact Info) Description 10/04/2024 Get Medical Advice Rheumatology [address] [phone] [place] [address] [place] [address] Neuropathy Social History Tobacco Use Types Packs/Day Years Used Date Smoking Tobacco: Never Smokeless Tobacco: Never Alcohol Use Standard Drinks/Week Comments Not Currently 0 (1 standard drink = 0.6 oz pur e alcohol) [facility] Utilities Answer Date Recorded In [...] is lower risk 4 03/05/2023 Data from: https://www.neighborhoodatlas.medicine.[facility]/. Last address used for calculation [address] 03/05/2023 Comments No Sex [...] Telephone Encounter - Melina Estrada MD - 10/04/2024 8:26 PM EST Per [employer] message 03/30/2024: I am glad we are getting some answers! Small fiber neuropathy is best treated by neurology or painmanagement, whoever is managing the gabapentin. They titrate these medicines or sometimes switch toother types of pain medications/nerve medications. 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 I recommend she discuss with neurology treatment of small fiber neuropathy. I am also happy to refer her to the [facility] to discuss symptom management. documented in this encounter Plan of Treatment Upcoming Encounters Date Type Department Care Team (Latest Contact Info) Description 03/31/2025 11:00 AM EDT Office Visit General Surgery [address] [place] [phone] Michael Mora PA-C [address] [place] [phone] follow up- add on ok'd by Michael 04/07/2025 1:00 PM EDT [facility] Neurological Scientologist [address] [place] [address] Agatha Kim PSYD [address] [place] [address] 04/19/2025 11:00 AM EDT [facility] Neurological Scientologist [address] [place] [address] Joann Loera APRN.ELECTRIC CAR OPERATOR [address] [place], [place] [phone] Cognitive movement issues 04/21/2025 8:30 AM EDT [facility] Nutrition Therapy [address] [address] Tiffany Banks, RD [address] [place] [address] f/u TF forula tolerance and hydration 05/29/2025 9:00 AM EDT [facility] Gastroenterology [address] [place] [address] Johanna Martinez MD [facility] [address] [place] [address] 3 month follow up 06/28/2025 10:00 AM EDT [facility] Neurology Pain [address] [place] [address] [place] [address] [place] [address] Follow up for pain documented as of this encounter Visit Diagnoses Not on filedocumented in this encounter Care Teams Executive Business Coach Relationship Specialty Start Date End Date Shlomo Hu II, MD [address] [facility] 110 [place] [address] PCP - General Internal Medicine 10/06/23 Jacob Sharp [address] [place] [phone] Referring 04/30/[address] [address] Registered Dietitian Nutrition 06/24/[address] [facility] [place] [phone] Registered Dietitian Nutrition 08/27/23 Yuan Miller MD, PhD [address] [place] [address] Surgeon General Surgery 02/03/24 documented as of this encounter
--- OUTSIDE RECORDS SUMMARY | 2025-03-28 09:14 | XMS_ITS | Encounter Summary ---
Author Organization [facility] Address [id number] [address] [place] [address] Care Team Providers Care Cotton Cleaner Name Role Phone Skylar Echavarria JOSE-ROUTE DELIVERER Primary Care Provider + Encounter Details Date Type Department Care Team (Late st Contact Info) Description 06/24/2021 Orders Only [facility] V[facility] [address] [place] [address] Ref Prov, [place] [address] Social History Tobacco Use Types Packs/Day Years [...] Date/Time Associated Diagnosis Comments MULTIPLE LABS Routine 06/24/2021 documented in this encounter Results * Multiple labs (06/24/2021) us Not In System Ref Prov AR IMAGING Final Res ult MANUALLY TRANSCRIBED RESULTS documented in this encounter Visit Diagnoses Not on filedocumented in this encounter Additional Health Concerns Infection Onset Date Last Indicated Resolved Time Respiratory Rule-Out 12/12/2021 12/12/2021 022 2:38 PM EDT documented as of this encounter Care Teams Cotton Cleaner Relationship Specialty Start Date End Date Skylar Echavarria, SUPERVISOR DIAGNOSTIC-ROUTE DELIVERER [address] [place] [address] PCP - General Internal Medicine 11/18/23 documented as of this encounter
--- OUTSIDE RECORDS SUMMARY | 2025-03-28 09:14 | XMS_ITS | Encounter Summary ---
Author Organization [facility] Address [id number] [address] [place] [address] Care Team Providers Care Trim Installer Name Role Phone Skylar Echavarria JOSE-CHANGE CONTROL SPECIALIST Primary Care Provider + Encounter Details Date Type Department Care Team (Late st Contact Info) Description 07/16/2021 Orders Only [facility] Cardiology [address] [place] [address] External, Scanning Provider Social History Tobacco Use [...] Date/Time Associated Diagnosis Comments MULTIPLE LABS Routine 06/17/2021 LIPID PROFILE Routine 06/17/2021 CT ABDOMEN AND PELVIS WO CONT Routine 05/05/2021 ECG 12-LEAD Routine 05/05/2021 CT ABDOMEN AND PELVIS W CONT Routine 02/16/2021 VASC VENOUS DUPLEX LOWER BILATERAL Routine 02/15/2021 CT ABDOMEN AND PELVIS WO CONT Routine 02/12/2021 documented in this encounter Results * Multiple labs (06/17/2021) us Scanning Provider External [place] IMAGING Final Result Performing Organization Address [facility] de Phone Number MANUALLY TRANSCRIBED RESULTS * Lipid profile (06/17/2021) External Cholesterol 194 MANUALLY TRANSCRIBED RESULTS External Cholesterol:Hdl 2.9 MANUALLY TRANSCRIBED RESULTS External Hdl Cholesterol 66 MANUALLY TRANSCRIBED RESULTS External Ldl (Calc) 115.4 MANUALLY TRANSCRIBED RESULTS External Triglycerides 53 MANUALLY TRANSCRIBED RESULTS External Very Low Lipoprotein 10.6 MANUALLY TRANSCRIBED RESULTS us Scanning Provider External LAB BLOOD ORDERABLES Edited Result - Final Performing Organization Address [facility] de Phone Number MANUALLY TRANSCRIBED RESULTS * CT abdomen and pelvis without contrast (05/05/2021) Anatomical Region Laterality Modality Body, Abdomen, Body Covera N/A Compu nick Tomography us Scanning Provider External IMG CT ORDERABLES Fin al Result * ECG 12 lead (05/05/2021) us Scanning Provider External ECG ORDERABLES Final Result Performing Organization Address [facility] de Phone Number MANUALLY TRANSCRIBED RESULTS * CT abdomen and pelvis with contrast (02/16/2021) Anatomical Region Laterality Modality Body, Abdomen, Body Covera N/A Compu nick Tomography us Scanning Provider External IMG CT ORDERABLES Fin al Result * Vas venous duplex lwr bilateral (02/15/2021) Anatomical Region Laterality Modality Vascular Bilateral Ultrasound us Scanning Provider External CV VASCULAR ORDERABLE S Final Result * CT abdomen and pelvis without contrast (02/12/2021) Anatomical Region Laterality Modality Body, Abdomen, Body Covera N/A Compu nick Tomography us Scanning Provider External IMG CT ORDERABLES Fin al Result documented in this encounter Visit Diagnoses Not on filedocumented in this encounter Additional Health Concerns Infection Onset Date Last Indicated Resolved Time Respiratory Rule-Out 12/12/2021 12/12/2021 022 2:38 PM EDT documented as of this encounter Care Teams Trim Installer Relationship Specialty Start Date End Date Skylar Echavarria APRN-CHANGE CONTROL SPECIALIST [address] [place] [address] PCP - General Internal Medicine 11/18/23 documented as of this encounter
--- OUTSIDE RECORDS SUMMARY | 2025-03-28 09:14 | XMS_ITS | Encounter Summary ---
Author Organization [facility] Address [address] [place] [address] Care Team Providers Care Level Vial Sealer Name Role Phone Siobhan Sharpjusto Unavailable Rasheeda Newton RD Unavailable [phone] Unavailable [phone] Frizt HENDERSON MD, Shlomo Momin Primary Care Provider [phone] Yuan Miller MD, PhD Unavailable [phone] Source Comments In the event this information is protected by the Federal Confidentiality of Alcohol and Drug AbusePatient Records regulations: The Federal rules restrict any use of the information to criminally investigate or prosecute any alcohol or drug abuse patient.[facility] Encounter Details Date Type Department Care Team (Late st Contact Info) Description 09/08/2024 Patient Msg Pain Recovery [address] [place] [address] Lucia Concepcion PSYD [address] [place] [address] Movement SMA Social History Tobacco Use Types Packs/Day Years Used Date Smoking Tobacco: Never Smokeless Tobacco: Never Alcohol Use Standard Drinks/Week Comments Not Currently 0 (1 standard drink = 0.6 oz pur e alcohol) [facility] Utilities Answer Date Recorded In [...] risk 4 03/05/2023 Data from: https://www.neighborhoodatlas.[facility]/. Last address used for calculation [address] 270 03/05/2023 Comments No Sex and Gender [...] AM EDT Office Visit General Surgery [address] [id number] Michael Mora PA-C [address] [place] [address] follow up- add on ok'd by Michael 04/07/2025 1:00 PM EDT [facility] Neurological Hinduism [address] 1879006 Agatha Kim PSYD [address] [id number] 04/19/2025 11:00 AM EDT [facility] Neurological Hinduism [address] [place] [address] Joann Loera APRN.GRINDING WHEEL DRESSER [address] [id number] Cognitive movement issues 04/21/2025 8:30 AM EDT [facility] Nutrition Therapy [address] [phone] Tiffany Banks, RD [address] [place] [address] f/u TF forula tolerance and hydration 05/29/2025 9:00 AM EDT [facility] Gastroenterology [address] [id number] Johanna Martienz MD [facility] [address] [place], [place] [address] 3 month follow up 06/28/2025 10:00 AM EDT [facility] Neurology Pain [address] 1879006 [place] [address] [address] [id number] Follow up for pain documented as of this encounter Visit Diagnoses Not on filedocumented in this encounter Care Teams Level Vial Sealer Relationship Specialty Start Date End Date Shlomo Hu II, MD [address] [facility] 110 [place] [address] PCP - General Internal Medicine 10/06/23 Jacob Sharp [address] [id number] Referring 04/30/[address] [place] [address] Registered Dietitian Nutrition 06/24/[address] [place] [address] Registered Dietitian Nutrition 08/27/23 Yuan Miller MD, PhD [address] [place] [address] Surgeon General Surgery 02/03/24 documented as of this encounter
--- OUTSIDE RECORDS SUMMARY | 2025-03-28 09:14 | XMS_ITS | Encounter Summary ---
Author Organization [facility] Address [address] [place] [address] Care Team Providers Care Principal Associate Name Role Phone Jacob Sharp Unavailable Rasheeda Newton RD Unavailable [phone] Unavailable [phone] Fritz HENDERSON MD, Shlomo Momin Primary Care Provider [phone] Yuan Miller MD, PhD Unavailable [phone] Source Comments In the event this information is protected by the Federal Confidentiality of Alcohol and Drug AbusePatient Records regulations: The Federal rules restrict any use of the information to criminally investigate or prosecute any alcohol or drug abuse patient.[facility] Encounter Details Date Type Department Care Team (Late st Contact Info) Description 10/12/2024 Get Medical Advice Neurology Pain [address] [place], [place] [phone] [place] [address] [place] [address] Ketamine Social History Tobacco Use Types Packs/Day Years Used Date Smoking Tobacco: Never Smokeless Tobacco: Never Alcohol Use Standard Drinks/Week Comments Not Currently 0 (1 standard drink = 0.6 oz pur e alcohol) [facility] Utilities Answer Date Recorded In [...] slept in a longterm (including now)? No 02/16/2024 Housing Stability Vital [...] in the [facility] 12 m [facility], were you homeless or living in a longterm (including now)? No 08/01/2024 Area Deprivation Index Answer Date Reagan rded National Score (1-100), lower number is lower ri sk 63 03/05/2023 State Score (1-10), lower number is lower risk 4 03/05/2023 Data from: https://www.neighborhoodatlas.[facility]/. Last address used for calculation [address] 270 03/05/2023 Comments [...] AM EDT Office Visit General Surgery [address] [phone] Michael Mora PA-C [address] [place] [address] follow up- add on ok'd by Michael 04/07/2025 1:00 PM EDT [facility] Neurological Islam [address] [phone] Agatha Kim PSYD [address] [place] [address] 04/19/2025 11:00 AM EDT [facility] Neurological Islam [address] [place] [address] Joann Loera APRN.CLINICAL ASSISTANT PROFESSOR [address] [place] [address] Cognitive movement issues 04/21/2025 8:30 AM EDT [facility] Nutrition Therapy [address] [phone] Tiffany Banks, RD [address] [place] [address] f/u TF forula tolerance and hydration 05/29/2025 9:00 AM EDT [facility] Gastroenterology [address] [phone] Johanna Martinez MD [facility] [address] [place], [place] [phone] 3 month follow up 06/28/2025 10:00 AM T [facility] Neurology Pain [address] [place] [address] [place] [address] [place] [address] Follow up for pain documented as of this encounter Visit Diagnoses Not on filedocumented in this encounter Care Teams Principal Associate Relationship Specialty Start Date End Date Shlomo Hu II, MD [address] [facility] 110 [place] [address] PCP - General Internal Medicine 10/06/23 Jacob Sharp [address] [phone] Referring 04/30/[address] [place] [phone] Registered Dietitian Nutrition 06/24/[address] [place] [address] Registered Dietitian Nutrition 08/27/23 Yuan Miller MD, PhD [address] [place] [address] Surgeon General Surgery 02/03/24 documented as of this encounter
--- OUTSIDE RECORDS SUMMARY | 2025-03-28 09:14 | XMS_ITS | Encounter Summary ---
Author Organization [facility] Address [address] [place] [address] Care Team Providers Care Driller Machine Name Role Phone Jacob Sharp Unavailable Rasheeda Newton RD Unavailable [phone] Unavailable [phone] Fritz HENDERSON MD, Shlomo Momin Primary Care Provider [phone] Yuan Miller MD, PhD Unavailable [phone] Source Comments In the event this information is protected by the Federal Confidentiality of Alcohol and Drug AbusePatient Records regulations: The Federal rules restrict any use of the information to criminally investigate or prosecute any alcohol or drug abuse patient.[facility] Encounter Details Date Type Department Care Team (Late st Contact Info) Description 09/22/2024 Patient Msg Gastroenterology [address] [id number] Provider, [facility] follow up information Social History Tobacco Use Types Packs/Day Years Used Date Smoking Tobacco: Never Smokeless Tobacco: Never Alcohol Use Standard Drinks/Week Comments Not Currently 0 (1 standard drink = 0.6 oz pur e alcohol) [facility] Utilities Answer Date Recorded In the past 12 months has th e [employer], gas, oil, or water company threatened to [...] any time in the past 12 m [facility], were you homeless or living in a retirement (including now)? No 08/01/2024 Area Deprivation Index Answer Date Reagan rded National Score (1-100), lower number is lower ri sk 63 03/05/2023 State Score (1-10), lower number is lower risk 4 03/05/2023 Data from: https://www.neighborhoodatlas.[facility]/. Last address used for [...] AM EDT Office Visit General Surgery [address] [place] [address] Michael Mora PA-C [address] [place] [address] follow up- add on ok'd by Michael 04/07/2025 1:00 PM EDT [facility] Neurological Mosque [address] [place] [address] Agatha Kim PSYD [address] [phone] 04/19/2025 11:00 AM EDT [facility] Neurological Mosque [address] [place] [address] Joann Loera APRN.JAIL OFFICER [address] [place] [address] Cognitive movement issues 04/21/2025 8:30 AM T [facility] Nutrition Therapy [address] [place] [address] Tiffany Banks, DIONNE [address] [place] [address] f/u TF forula tolerance and hydration 05/29/2025 9:00 AM T [facility] Gastroenterology [address] [place] [address] Johanna Martinez MD [facility] [address] [place] [address] 3 month follow up 06/28/2025 10:00 AM [facility] Neurology Pain [address] [phone] [place] [address] [address] [phone] Follow up for pain documented as of this encounter Visit Diagnoses Not on filedocumented in this encounter Care Teams Driller Machine Relationship Specialty Start Date End Date Shlomo Hu II, MD [address] [place] [address] [place] [address] PCP - General Internal Medicine 10/06/23 Jacob Sharp [address] [place] [address] Referring 04/30/[address] [place] [phone] Registered Dietitian Nutrition 06/24/[address] [phone] Registered Dietitian Nutrition 08/27/23 Yuan Miller MD, PhD [address] [place] [address] Surgeon General Surgery 02/03/24 documented as of this encounter
--- OUTSIDE RECORDS SUMMARY | 2025-03-28 09:14 | XMS_ITS | Encounter Summary ---
Author Organization [facility] Address [address] [facility] [place] [address] Care Team Providers Care Shear Operator Helper Name Role Phone Shlomo Hu MD Primary Care Provider Jacob Sharp ASSISTANT SCIENTIST Unavailable Thursday, Toya PROFESSIONAL BUILDER Unavailable [phone] Shlomo Hu MD Unavailable [phone] Shante Kumar EXTENSION COURSE COORDINATOR-OFFICE MACHINE TECHNICIAN Unavailable Claribel Scott RN Unavailable Maximo Jess PROFESSIONAL BUILDER Unavailable Esthela Tesfaye CITY SOLICITOR Unavailable Encounter Details Date Type Department Care Team (Late st Contact Info) Description 03/10/2024 Abstract [facility] 112 [facility] 110 [place] [address] Shlomo Hu MD 112 [facility] 110 [place] [address] Social History Tobacco Use Types [...] week 03/01/2023 How often do you attend [facility] or restoration services? Patient declined 03/01/2023 Do you belong to any clubs o r organizations such as muslim groups, unions, fraternal or athletic groups, or [...] slept in a residential (including now)? 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 Not on file Not on file Not on file documented as of this encounter Plan of Treatment Upcoming Encounters Date Type Department Care Team (Late st Contact Info) Description 04/12/2025 9:50 AM EDT Office Visit [facility] [address] [place] [address] Tanya Lozano MD [address] [place] [address] 04/20/2025 3:00 PM EDT Office Visit [facility] [address] [place] [address] Sonny Rodriguez DPM [address] [address] 05/04/2025 2:50 PM EDT Office Visit [facility] [address] [place] [address] Sonny Rodriguez DPM [address] [address] documented as of this encounter Visit Diagnoses Not on filedocumented in this encounter Additional Health Concerns Assessment Noted Time PHQ-9 Depression Total Score: 9 08/26/20 23 1:30 PM EST documented as of this encounter Care Teams Shear Operator Helper Relationship Specialty Start Date End Date Shlomo Hu MD [address] [place] [address] PCP - General Internal Medicine 02/15/23 [place] [address] [place] [address] PCP - Denzel Mckeon 08/14/23 Shlomo Hu MD [address] [place] [address] PCP - [place] [employer] 05/15/2407/14 Shante Kumar, EXTENSION COURSE COORDINATOR-OFFICE MACHINE TECHNICIAN [address] [place] [address] PCP - [place] [employer] 07/15/24 ThursdayToya LPN [address] [place] [address] Licensed Practical Nurse Family Medicine 01/19/24 10/21/24 Claribel Scott, RN [address] [place] [address] Licensed Practical Nurse Family Medicine 10/21/24 12/06/24 Jess Marsh LPN [address] [facility] 110 [place] [address] 12/06/24 Esthela Tesfaye, KIRA [address] [place] [address] Promotional Marketing Analyst Family Medicine 02/03/25 documented as of this encounter
--- OUTSIDE RECORDS SUMMARY | 2025-03-28 09:14 | XMS_ITS | Encounter Summary ---
Author Organization [facility] Address [address] [facility] [place] [address] Care Team Providers Care Nnps Name Role Phone Shlomo Hu MD Primary Care Provider Jacob Sharp WINDOW SHADE RING SEWER Unavailable Thursday, Toya DRILLER MACHINE Unavailable [phone] Shlomo Hu MD Unavailable [phone] Shante Kumar GENERAL ASSISTANT-VIDEO CONFERENCE SPECIALIST Unavailable Claribel Scott RN Unavailable Jess Marsh DRILLER MACHINE Unavailable Esthela Tesfaye FUNCTIONAL TESTER TYPEWRITERS Unavailable Encounter Details Date Type Department Care Team (Late st Contact Info) Description 02/10/2024 Abstract [facility] 112 [facility] 110 [place] [address] Shlomo Hu MD 112 [facility] 110 [place] [address] Social History Tobacco Use Types [...] How often do you attend [facility] or mormonism services? 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 Not on file Not on file documented as of this encounter Plan of Treatment Upcoming Encounters Date Type Department Care Team (Late st Contact Info) Description 04/12/2025 9:50 AM EDT Office Visit [facility] [address] [place] [address] Tanya Lozano MD [address] [place] [address] 04/20/2025 3:00 PM EDT Office Visit [facility] [address] [place] [address] Sonny Rodriguez DPM [address] [address] 05/04/2025 2:50 PM EDT Office Visit [facility] [address] [place] [address] Sonny Rodriguez DPM [address] [address] documented as of this encounter Visit Diagnoses Not on filedocumented in this encounter Additional Health Concerns Assessment Noted Time PHQ-9 Depression Total Score: 9 08/26/20 23 1:30 PM EST documented as of this encounter Care Teams Nnps Relationship Specialty Start Date End Date Shlomo Hu MD [address] [place] [address] PCP - General Internal Medicine 02/15/23 [place] [address] [place] [address] PCP - Denzel Mckeon 08/14/23 Shlomo Hu MD [address] [place] [address] PCP - [place] [employer] 05/15/2407/14 Shante Kumar, GENERAL ASSISTANT-VIDEO CONFERENCE SPECIALIST [address] [place] [address] PCP - [place] [employer] 07/15/24 ThursdayToya LPN [address] [place] [address] Licensed Practical Nurse Family Medicine 01/19/24 10/21/24 Claribel Scott, RN [address] [place] [address] Licensed Practical Nurse Family Medicine 10/21/24 12/06/24 Jess Marsh LPN [address] [facility] 110 [place] [address] 12/06/24 Esthela Tesfaye, KIRA [address] [place] [address] Core Maker Family Medicine 02/03/25 documented as of this encounter
--- OUTSIDE RECORDS SUMMARY | 2025-03-28 09:14 | XMS_ITS | Encounter Summary ---
Author Organization [facility] Address [address] [facility] [place] [address] Care Team Providers Care Ticket Dispatcher Name Role Phone Shlomo Hu MD Primary Care Provider [phone] Jacob Sharp MACHINE BOSS Unavailable [phone] Thursday, Toya ATTENUATOR Unavailable [phone] Shlomo Hu MD Unavailable [phone] Shante Kumar SEWER REPAIRER-HALF SOLE FITTER Unavailable Claribel Scott RN Unavailable [phone] Maximo Jess ATTENUATOR Unavailable Esthela Tesfaye SERVER CASHIER Unavailable Encounter Details Date Type Department Care Team (Late st Contact Info) Description 01/13/2024 Abstract [facility] 112 [facility] 110 [place] [address] Shlomo uH MD 112 [facility] 110 [place] [address] Social History Tobacco Use Types [...] week 03/01/2023 How often do you attend [facility] or episcopalian services? 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 Not on file Not on file documented as of this encounter Plan of Treatment Upcoming Encounters Date Type Department Care Team (Late st Contact Info) Description 04/12/2025 9:50 AM EDT Office Visit [facility] [address] [place] [address] Tanya Lozano MD [address] [place] [address] 04/20/2025 3:00 PM EDT Office Visit [facility] [address] [place] [address] Sonny Rodriguez DPM [address] [address] 05/04/2025 2:50 PM EDT Office Visit [facility] [address] [place] [address] Sonny Rodriguez DPM [address] [address] documented as of this encounter Visit Diagnoses Not on filedocumented in this encounter Additional Health Concerns Assessment Noted Time PHQ-9 Depression Total Score: 9 08/26/20 23 1:30 PM EST documented as of this encounter Care Teams Ticket Dispatcher Relationship Specialty Start Date End Date Shlomo Hu MD [address] [place] [address] PCP - General Internal Medicine 02/15/23 [place] [address] [place] [address] PCP - Denzel Mckeon 08/14/23 Shlomo Hu MD [address] [place] [address] PCP - [place] [employer] 05/15/2407/14 Shante Kumar, SEWER REPAIRER-HALF SOLE FITTER [address] [place] [address] PCP - [place] [employer] 07/15/24 ThursdayToya LPN [address] [place] [address] Licensed Practical Nurse Family Medicine 01/19/24 10/21/24 Claribel Scott, RN [address] [place] [address] Licensed Practical Nurse Family Medicine 10/21/24 12/06/24 Jess Marsh LPN [address] [facility] 110 [place] [address] 12/06/24 Esthela Tesfaye, KIRA 14[address] [place] [address] Classroom Coordinator Family Medicine 02/03/25 documented as of this encounter
--- OUTSIDE RECORDS SUMMARY | 2025-03-28 09:14 | XMS_ITS | Encounter Summary ---
Author Organization [facility] Address [address] [facility] [place] [address] Care Team Providers Care Prefitter Doors Name Role Phone Shlomo Hu MD Primary Care Provider Jacob Sharp MENTAL HEALTH TECH Unavailable [phone] Thursday, Toya HUMANITIES INSTRUCTOR Unavailable [phone] Shlomo Hu MD Unavailable [phone] Shante Kumar CANAL DRIVER-BDR Unavailable Claribel Scott RN Unavailable [phone] Maximo Jess HUMANITIES INSTRUCTOR Unavailable Esthela Tesfaye JOB PRINTER APPRENTICE Unavailable Encounter Details Date Type Department Care Team (Late st Contact Info) Description 02/16/2024 Abstract [facility] [address] [facility] 110 [place] [address] Shlomo Hu MD 112 [facility] 110 [place] [address] Social History Tobacco Use Types [...] week 03/01/2023 How often do you attend [facility] or amish services? Patient declined 03/01/2023 Do you belong [...] Recorded Patient Health Questionnaire-2 Score 6 08/26/2023 [facility] of Occupat ional Health [...] slept in a fpc (including now)? 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 Not on file Not on file documented as of this encounter Plan of Treatment Upcoming Encounters Date Type Department Care Team (Late st Contact Info) Description 04/12/2025 9:50 AM EDT Office Visit [facility] [address] [place] [address] Tanya Lozano MD [address] [place] [address] 04/20/2025 3:00 PM EDT Office Visit [facility] [address] [place] [address] Sonny Rodriguez DPM [address] [address] 05/04/2025 2:50 PM EDT Office Visit [facility] [address] [place] [address] Sonny Rodriguez DPM [address] [address] documented as of this encounter Visit Diagnoses Not on filedocumented in this encounter Additional Health Concerns Assessment Noted Time PHQ-9 Depression Total Score: 9 08/26/20 23 1:30 PM EST documented as of this encounter Care Teams Prefitter Doors Relationship Specialty Start Date End Date Shlomo Hu MD [address] [place] [address] PCP - General Internal Medicine 02/15/23 [place] [address] [place] [address] PCP - Denzel Mckeon 08/14/23 Shlomo Hu MD [address] [place] [address] PCP - [place] [employer] 05/15/2407/14 Shante Kumar, CANAL DRIVER-BDR [address] [place] [address] PCP - [place] [employer] 07/15/24 ThursdayToya LPN [address] [place] [address] Licensed Practical Nurse Family Medicine 01/19/24 10/21/24 Claribel Scott, RN [address] [place] [address] Licensed Practical Nurse Family Medicine 10/21/24 12/06/24 Jess Marsh LPN [address] [facility] 110 [place] [address] 12/06/24 Esthela Tesfaye, KIRA [address] [place] [address] Day Care Supervisor Family Medicine 02/03/25 documented as of this encounter
--- OUTSIDE RECORDS SUMMARY | 2025-03-28 09:14 | XMS_ITS | Encounter Summary ---
Author Organization [facility] [employer] Sys tem Address [facility][id number] [address] [place] [address] Care Team Providers Care Biofuels Plant Construction Worker Name Role Phone Skylar Echavarria JOSE-HANGERSMITH Primary Care Provider + Encounter Details Date Type Department Care Team (Late st Contact Info) Description 06/17/2021 Orders Only [facility] [address] [place] [id number] External, Scanning Provider Social History Tobacco Use [...] PM EDT Sexual Orientation Not on file COVID-19 Exposure Response Date Recorded In the last month, have you been in contact with someone who was confirmed or suspected to have Coronavirus / COVID-19? No / Unsure 05/24/2021 12:17 PM EDT documented as of this encounter Plan of Treatment Not on file documented as of this encounter Procedures Procedure Name Priority Date/Time Associated Diagnosis Comments MULTIPLE LABS Routine 05/24/2021 documented in this encounter Results * Multiple labs (05/24/2021) us Scanning Provider External MA IMAGING Final Result MANUALLY TRANSCRIBED RESULTS documented in this encounter Visit Diagnoses Not on filedocumented in this encounter Additional Health Concerns Infection Onset Date Last Indicated Resolved Time Respiratory Rule-Out 12/12/2021 12/12/2021 022 2:38 PM EDT documented as of this encounter Care Teams Biofuels Plant Construction Worker Relationship Specialty Start Date End Date Skylar Echavarria APRN-HANGERSMITH [address] [place] [address] PCP - General Internal Medicine 11/18/23 documented as of this encounter
--- OUTSIDE RECORDS SUMMARY | 2025-03-28 09:14 | XMS_ITS | Encounter Summary ---
Author Organization [facility] Address [address] [place] [address] Care Team Providers Care Stave Jointer Name Role Phone Sean Ruiz DO Primary Care Provider [phone] Jacob Sharp Unavailable Rasheeda Newton RD Unavailable [phone] Unavailable [phone] Fritz HENDERSON MD, Shlomo B Primary Care Provider [phone] Yuan Miller MD, PhD Unavailable [phone] Source Comments In the event this information is protected by the Federal Confidentiality of Alcohol and Drug AbusePatient Records regulations: The Federal rules restrict any use of the information to criminally investigate or prosecute any alcohol or drug abuse patient.[facility] Encounter Details Date Type Department Care Team (Late st Contact Info) Description 07/05/2023 Get Medical Advice Gastroenterology [address] [id number] Jorge L Saha PA-C [address] [place] [address] Follow up appointment Social History Tobacco Use Types Packs/Day Years [...] is lower risk 4 03/05/2023 Data from: https://www.neighborhoodatlas.[facility]/. Last address used for calculation [address] [...] AM EDT Office Visit General Surgery [address] [place] [address] Michael Mora PA-C [address] [place] [address] follow up- add on ok'd by Michael 04/07/2025 1:00 PM EDT [facility] Buddhist [address] [place] [address] Agatha Kim, DILAN [address] [place] [address] 04/19/2025 11:00 AM EDT [facility] Neurological Buddhist [address] [place] [address] Joann Loera APRN.MID LEVEL PROJECT MANAGER [address] [place] [address] Cognitive movement issues 04/21/2025 8:30 AM EDT [facility] Nutrition Therapy [address] [place] [phone] Tiffany Banks, RD [address] [place] [id number] f/u TF forula tolerance and hydration 05/29/2025 9:00 AM EDT [facility] Gastroenterology [address] [place] [id number] Johanna Martinez MD [facility] [address] [place], [place] [id number] 3 month follow up 06/28/2025 10:00 AM EDT [facility] Neurology Pain [address] [place] [id number] [place] [address] [place] [id number] Follow up for pain documented as of [...] documented as of this encounter Care Teams Stave Jointer Relationship Specialty [place] [address] [place] [address] PCP - General Family Medicine 07/09/12 10/05/23 Shlomo Hu II, MD [address] [facility] 110 [place] [address] PCP - General Internal Medicine 10/06/23 Jacob Sharp [address] [place] [address] Referring 04/30/[address] [place] [id number] Registered Dietitian Nutrition 06/24/[address] [place] [address] Registered Dietitian Nutrition 08/27/23 Yuan Miller MD, PhD [address] [place], [place] [address] Surgeon General Surgery 02/03/24 documented as of this encounter
--- OUTSIDE RECORDS SUMMARY | 2025-03-28 09:15 | XMS_ITS | Encounter Summary ---
Author Organization [facility] Address [address] [place] [address] Care Team Providers Care Bottle Hop Name Role Phone Sean Ruiz DO Primary Care Provider [phone] Jacob Sharp Unavailable Rasheeda Newton RD Unavailable [phone] Unavailable [phone] Fritz HENDERSON MD, Shlomo Momin Primary Care Provider [phone] Yuan Miller MD, PhD Unavailable [phone] Source Comments In the event this information is protected by the Federal Confidentiality of Alcohol and Drug AbusePatient Records regulations: The Federal rules restrict any use of the information to criminally investigate or prosecute any alcohol or drug abuse patient.[facility] Encounter Details Date Type Department Care Team (Late st Contact Info) Description 07/07/2023 Patient Msg Gastroenterology [address] [id number] Provider, Ccf TPN Social History Tobacco Use Types Packs/Day Years [...] slept in a prison (including now)? No 09/18/2022 Area Deprivation Index Answer Date Reagan rded National Score (1-100), lower number is lower ri sk 63 03/05/2023 State Score (1-10), lower number is lower risk 4 03/05/2023 Data from: https://www.neighborhoodatlas.medicine[facility].edu/. Last address used for calculation [address] [...] AM EDT Office Visit General Surgery [address] [place] [address] Michael Mora PA-C [address] [place] [address] follow up- add on ok'd by Michael 04/07/2025 1:00 PM EDT [facility] [place] [address] [place] [phone] Agatha Kim PSYD [address] [place] [phone] 04/19/2025 11:00 AM EDT [facility] Neurological [place] [address] [place] [address] Joann Loera APRN.PAPER CUTTER OPERATOR [address] [place] [address] Cognitive movement issues 04/21/2025 8:30 AM EDT [facility] Nutrition Therapy [address] [place] [phone] Tiffany Banks, RD [address] [place] [id number] f/u TF forula tolerance and hydration 05/29/2025 9:00 AM EDT [facility] Gastroenterology [address] [place] [phone] Johanna Martinez MD [facility] [address] [place], [place] [address] 3 month follow up 06/28/2025 10:00 AM EDT [facility] Neurology Pain [address] [place] [address] [place] [address] [place] [address] Follow up for pain documented as of [...] documented as of this encounter Care Teams Bottle Hop Relationship Specialty [place] [address] [place] [address] PCP - General Family Medicine 07/09/12 10/05/23 Shlomo Hu II, MD [address] [facility] 110 [place] [address] PCP - General Internal Medicine 10/06/23 Jacob Sharp [address] [place] [address] Referring 04/30/[address] [place] [address] Registered Dietitian Nutrition 06/24/[address] [facility] [place] [address] Registered Dietitian Nutrition 08/27/23 Yuan Miller MD, PhD [address] [place] [address] Surgeon General Surgery 02/03/24 documented as of this encounter
--- OUTSIDE RECORDS SUMMARY | 2025-03-28 09:15 | XMS_ITS | Encounter Summary ---
Author Organization [facility] Address [address] [facility] [place] [address] Care Team Providers Care Club Manager Name Role Phone Shlomo uH MD Primary Care Provider Jacob Sharp STREET CAR MECHANIC Unavailable Thursday, Toya CARDIAC/VASCULAR SONOGRAPHER Unavailable [phone] Shlomo Hu MD Unavailable [phone] Shante Kumar PROJECT MANAGER SENIOR-TECHNICIAN BIOLOGICAL HEALTH Unavailable Claribel Scott RN Unavailable Maximo Jess CARDIAC/VASCULAR SONOGRAPHER Unavailable Esthela Tesfaye TOOTH CUTTER CONTACT WHEEL Unavailable Encounter Details Date Type Department Care Team (Late st Contact Info) Description 10/22/2023 Abstract [facility] 112 [facility] 110 [place] [address] Shlomo Hu MD 112 [facility] 110 [place] [address] Social History Tobacco Use Types [...] How often do you attend [facility] or cheondoism services? Patient declined 03/01/2023 Do you belong [...] Recorded Patient Health Questionnaire-2 Score 6 08/26/2023 [facility] of Occupat ional Health - [...] AM EDT Sexual Orientation Not on file documented as of this encounter Plan of Treatment Upcoming Encounters Date Type Department Care Team (Late st Contact Info) Description 04/12/2025 9:50 AM EDT Office Visit [facility] ENDOCRINOLOGY [address] [place] [address] Tanya Lozano MD [address] [place] [address] 04/20/2025 3:00 PM EDT Office Visit [facility] PODIATRY [address] [place] [address] Sonny Rodriguez, DPM 3006 [facility] 5 [place] [address] 05/04/2025 2:50 PM EDT Office Visit [facility] [address] [place] [address] Sonny Rodriguez DPM 3006 [facility] 5 [place] [address] documented as of this encounter Visit Diagnoses Not on filedocumented in this encounter Additional Health Concerns Assessment Noted Time PHQ-9 Depression Total Score: 9 08/26/20 23 1:30 PM EST documented as of this encounter Care Teams Club Manager Relationship Specialty Start Date End Date Shlomo Hu MD [address] [place] [address] PCP - General Internal Medicine 02/15/23 [place] [address] [place] [address] PCP - [employer] 08/14/23 Shlomo Hu MD [address] [place] [address] PCP - [employer] 05/15/2407/14 Shante Kumar PROJECT MANAGER SENIOR-TECHNICIAN BIOLOGICAL HEALTH [address] [place] [address] PCP - Denzel Mckeon 07/15/24 ThursdayToya LPN [address] [place] [address] Licensed Practical Nurse Family Medicine 01/19/24 10/21/24 Claribel Scott, RN [address] [place] [address] Licensed Practical Nurse Family Medicine 10/21/24 12/06/24 Jess Marsh LPN [address] [facility] 110 [place] [address] 12/06/24 Esthela Tesfaye, KIRA [address] [place] [address] Roll Up Machine Operator Family Medicine 02/03/25 documented as of this encounter
--- OUTSIDE RECORDS SUMMARY | 2025-03-28 09:15 | XMS_ITS | Encounter Summary ---
Author Organization [facility] Address [address] [place] [address] Care Team Providers Care Pet Food Deboner Name Role Phone Sean Ruiz DO Primary Care Provider [phone] Jacob Sharp Unavailable Rasheeda Newton RD Unavailable [phone] Unavailable [phone] Fritz HENDERSON MD, Shlomo B Primary Care Provider [phone] Yuan Miller MD, PhD Unavailable [phone] Source Comments In the event this information is protected by the Federal Confidentiality of Alcohol and Drug AbusePatient Records regulations: The Federal rules restrict any use of the information to criminally investigate or prosecute any alcohol or drug abuse patient.[facility] Encounter Details Date Type Department Care Team (Late st Contact Info) Description 07/07/2023 Abstract Gastroenterology [address] [place] [id number] Dietitian, Cgrt [address] [place] [address] Social History Tobacco Use Types [...] lower risk 4 03/05/2023 Data from: https://www.neighborhoodatlas.medicine.[facility].edu/. Last address used for calculation [address] 03/05/2023 Comments No [...] AM EDT Office Visit General Surgery 9300 [place] [address] Michael Mora PA-C [address] [place] [address] follow up- add on ok'd by Michael 04/07/2025 1:00 PM EDT [facility]rological [facility] [address] [place] [phone] Agatha Kim PSYD [address] [place] [address] 04/19/2025 11:[address] [facility] Neurological Shinto [address] [place] [address] Joann Loera APRN.DESIGN ENGINEER PRODUCTS [address] [place] [address] Cognitive movement issues 04/21/2025 8:[address] [facility] Nutrition Therapy [address] [address] Tiffany Banks, RD [address] [place] [id number] f/u TF forula tolerance and hydration 05/29/2025 9:[address] [facility] Gastroenterology [address] [place] [phone] Johanna Martinez MD [facility] [address] [place] [address] 3 month follow up 06/28/2025 10:[address] [facility] Neurology Pain [address] [place] [address] [place] [address] [place] [address] Follow up for pain documented as of [...] documented as of this encounter Care Teams Pet Food Deboner Relationship Specialty [place] [address] [place] [address] PCP - General Family Medicine 07/09/12 10/05/23 Shlomo Hu II, MD 112 [facility] 110 [place] [address] PCP - General Internal Medicine 10/06/23 Jacob Sharp [address] [place] [address] Referring 04/30/[address] [place] [id number] Registered Dietitian Nutrition 06/24/[address] [place] [address] Registered Dietitian Nutrition 08/27/23 Yuan Miller MD, PhD [address] [place] [address] Surgeon General Surgery 02/03/24 documented as of this encounter
--- OUTSIDE RECORDS SUMMARY | 2025-03-28 09:15 | XMS_ITS | Encounter Summary ---
Author Organization [facility] Address [address] [facility] [place] [address] Care Team Providers Care Invasive Cardiovascular Technologist Name Role Phone Shlomo Hu MD Primary Care Provider Jacob Sharp DIVER'S TENDER Unavailable [phone] Thursday, Toya BARBED WIRE MACHINE OPERATOR Unavailable [phone] Shlomo Hu MD Unavailable [phone] Shante Kumar REEL SYSTEM OPERATOR-LINK AND LINK KNITTING MACHINE OPERATOR Unavailable Claribel Scott RN Unavailable Maximo Jess BARBED WIRE MACHINE OPERATOR Unavailable Esthela Tesfaye ADHESION TESTER Unavailable Encounter Details Date Type Department Care Team (Late st Contact Info) Description 10/09/2023 Abstract [facility] 112 [facility] 110 [place] [address] Shlomo Hu MD 112 [facility] 110 [place] [address] Social History Tobacco Use Types [...] week 03/01/2023 How often do you attend [facility] or oriental orthodox services? Patient declined 03/01/2023 Do you belong [...] Patient Health Questionnaire-2 Score 6 08/26/2023 [facility] of Occupat ional Health - Occupational Stress [...] ENDOCRINOLOGY [address] [place] [address] Tanya Lozano MD [address] [place] [address] 04/20/2025 3:00 PM EDT Office Visit [facility] [address] [place] [address] Sonny Rodriguez, DPM 3006 [facility] 5 [place] [address] 05/04/2025 2:50 PM EDT Office Visit [facility] [address] [place] [address] Sonny Rodriguez DPM 3006 [facility] 5 [place] [address] documented as of this encounter Visit Diagnoses Not on filedocumented in this encounter Additional Health Concerns Assessment Noted Time PHQ-9 Depression Total Score: 9 08/26/20 23 1:30 PM EST documented as of this encounter Care Teams Invasive Cardiovascular Technologist Relationship Specialty Start Date End Date Shlomo Hu MD [address] [place] [address] PCP - General Internal Medicine 02/15/23 [place] [address] [place] [address] PCP - [place] [employer] 08/14/23 Shlomo Hu MD [address] [place] [address] PCP - [employer] [employer] 05/15/2407/14 Shante Kumar REEL SYSTEM OPERATOR-LINK AND LINK KNITTING MACHINE OPERATOR [address] [place] [address] PCP - Denzel Mckeon 07/15/24 ThursdayToya LPN [address] [place] [address] Licensed Practical Nurse Family Medicine 01/19/24 10/21/24 Claribel Scott, RN [address] [place] [address] Licensed Practical Nurse Family Medicine 10/21/24 12/06/24 Jess Marsh LPN [address] [facility] 110 [place] [address] 12/06/24 Esthela Tesfaye, KIRA 14[address] [place] [address] Tape Transferrer Family Medicine 02/03/25 documented as of this encounter
--- OUTSIDE RECORDS SUMMARY | 2025-03-28 09:15 | XMS_ITS | Encounter Summary ---
Author Organization [facility] Address [address] [facility] [place] [address] Care Team Providers Care Pharmaceutical Plant Operator Name Role Phone Shlomo Hu MD Primary Care Provider Jacob Sharp LACE PAPER MACHINE OPERATOR Unavailable [phone] Thursday, Toya WAREHOUSE STOCKER Unavailable [phone] Shlomo Hu MD Unavailable [phone] Shante Kumar MEDICAL ASSISTANT SECRETARY-DNA SEQUENCING ASSOCIATE Unavailable Claribel Scott RN Unavailable Jess Marsh WAREHOUSE STOCKER Unavailable Esthela Tesfaye TILE SORTER Unavailable [phone] Encounter Details Date Type Department Care Team (Late st Contact Info) Description 10/12/2023 Abstract [facility] 112 [facility] 110 [place] [address] Shlomo Hu MD 112 [facility] 110 [place] [address] Social History Tobacco Use Types [...] 03/01/2023 How often do you attend [facility] or advent services? Patient declined 03/01/2023 Do you belong to any clubs o r organizations such as temple groups, unions, fraternal or athletic groups, or [...] Recorded Patient Health Questionnaire-2 Score 6 08/26/2023 [facility] of Occupat ional Health - [...] SH ENDOCRINOLOGY [address] [place] [address] Tanya Lozano MD [address] [place] [address] 04/20/2025 3:00 PM EDT Office Visit [facility] [address] [place] [address] Sonny Rodriguez, DPM 3006 [facility] 5 [place] [address] 05/04/2025 2:50 PM EDT Office Visit [facility] POD[facility] [address] [place] [address] Sonny Rodriguez DPM 3006 [facility] 5 [place] [address] documented as of this encounter Visit Diagnoses Not on filedocumented in this encounter Additional Health Concerns Assessment Noted Time PHQ-9 Depression Total Score: 9 08/26/20 23 1:30 PM EST documented as of this encounter Care Teams Pharmaceutical Plant Operator Relationship Specialty Start Date End Date Shlomo Hu MD [address] [place] [address] PCP - General Internal Medicine 02/15/23 [place] [address] [place] [address] PCP - [place] [employer] 08/14/23 Shlomo Hu MD [address] [place] [address] PCP - [place] [employer] 05/15/2407/14 Shante Kumar MEDICAL ASSISTANT SECRETARY-DNA SEQUENCING ASSOCIATE [address] [place] [address] PCP - Denzel Mckeon 07/15/24 ThursdayToya LPN [address] [place] [address] Licensed Practical Nurse Family Medicine 01/19/24 10/21/24 Claribel Scott, RN [address] [place] [address] Licensed Practical Nurse Family Medicine 10/21/24 12/06/24 Jess Marsh LPN [address] [facility] 110 [place] [address] 12/06/24 Esthela Tesfaye, KIRA [address] [place] [address] Coil Binder Family Medicine 02/03/25 documented as of this encounter
--- OUTSIDE RECORDS SUMMARY | 2025-03-28 09:15 | XMS_ITS | Encounter Summary ---
Author Organization [facility] Address [address] [facility] [place] [address] Care Team Providers Care Utilities Ground Worker Name Role Phone Shlomo Hu MD Primary Care Provider [phone] Jacob Sharp BATTERY WRECKER OPERATOR Unavailable [phone] Thursday, Toya FIGURE MODEL Unavailable [phone] Shlomo Hu MD Unavailable [phone] Shante Kumar RESERVOIR ENGINEER-MEDICAL RESIDENT Unavailable Claribel Scott RN Unavailable Maximo Jess FIGURE MODEL Unavailable Esthela Tesfaye WOOD DOWEL MACHINE OPERATOR Unavailable Encounter Details Date Type Department Care Team (Late st Contact Info) Description 10/22/2023 Abstract [facility] 112 [facility] 110 [place] [address] Shlomo Hu MD 112 [facility] 110 [place] [address] Social History Tobacco Use Types [...] How often do you attend [facility] or worship services? Patient declined 03/01/2023 Do you belong [...] Recorded Patient Health Questionnaire-2 Score 6 08/26/2023 [facility] of Occupat ional Health - [...] SH ENDOCRINOLOGY [address] [place] [address] Tanya Lozano MD [address] [place] [address] 04/20/2025 3:00 PM EDT Office Visit [facility] [address] [place] [address] Sonny Rodriguez, DPM 3006 [facility] 5 [place] [address] 05/04/2025 2:50 PM EDT Office Visit [facility] POD[facility] [address] [place] [address] Sonny Rodriguez DPM 3006 [facility] 5 [place] [address] documented as of this encounter Visit Diagnoses Not on filedocumented in this encounter Additional Health Concerns Assessment Noted Time PHQ-9 Depression Total Score: 9 08/26/20 23 1:30 PM EST documented as of this encounter Care Teams Utilities Ground Worker Relationship Specialty Start Date End Date Shlomo Hu MD [address] [place] [address] [place] [address] PCP - General Internal Medicine 02/15/23 [place] [address] [place] [address] PCP - [place] [employer] 08/14/23 Shlomo Hu MD [address] [place] [place] [address] PCP - [place] [employer] 05/15/2407/14 Shante Kumar RESERVOIR ENGINEER-MEDICAL RESIDENT [address] [place] [address] [place] [address] PCP - Denzel Mckeon 07/15/24 ThursdayToya LPN [address] [place] [place] [address] Licensed Practical Nurse Family Medicine 01/19/24 10/21/24 Claribel Scott, RN [address] [place] [address] Licensed Practical Nurse Family Medicine 10/21/24 12/06/24 Jess Marsh LPN [address] [place] [facility] 110 [place] [address] 12/06/24 Esthela Tesfaye, KIRA [address] [place] [address] Quality Control Inspector Heading Family Medicine 02/03/25 documented as of this encounter
--- OUTSIDE RECORDS SUMMARY | 2025-03-28 09:15 | XMS_ITS | Encounter Summary ---
Author Organization [facility] Address [address] [place] [address] Care Team Providers Care Radioactivity Technician Name Role Phone Shlomo Hu MD Primary Care Provider [phone] Jacob Sharp HAND SPRING REPAIRER Unavailable Thursday, Toya CELL BUILDER Unavailable [phone] Shlomo Hu MD Unavailable [phone] Shante Kumar MARKETING GRAPHICS SPECIALIST-REGULATORY AFFAIRS SPEC Unavailable Claribel Scott RN Unavailable [phone] Maximo Jess CELL BUILDER Unavailable Esthela Tesfaye FABRICATING MACHINE OPERATOR Unavailable Encounter Details Date Type Department Care Team (Late st Contact Info) Description 10/16/2023 Abstract [facility] 112 [facility] 110 [place] [address] Shlomo Hu MD 112 [facility] 110 [place] [address] Social History Tobacco Use Types [...] week 03/01/2023 How often do you attend [facility] or jewish services? Patient declined 03/01/2023 Do you belong [...] SH ENDOCRINOLOGY [address] [place] [address] Tanya Lozano MD [address] [place] [address] 04/20/2025 3:00 PM EDT Office Visit [facility] [address] [place] [address] Sonny Rodriguez, DPM 3006 [facility] 5 [place] [address] 05/04/2025 2:50 PM EDT Office Visit [facility] [address] [place] [address] Sonny Rodriguez DPM 3006 [facility] 5 [place] [address] documented as of this encounter Visit Diagnoses Not on filedocumented in this encounter Additional Health Concerns Assessment Noted Time PHQ-9 Depression Total Score: 9 08/26/20 23 1:30 PM EST documented as of this encounter Care Teams Radioactivity Technician Relationship Specialty Start Date End Date Shlomo Hu MD [address] [place] [address] PCP - General Internal Medicine 02/15/23 [place] [address] [place] [address] PCP - [place] [employer] 08/14/23 Shlomo Hu MD [address] [place] [address] PCP - [place] [employer] 05/15/2407/14 Shante Kumar MARKETING GRAPHICS SPECIALIST-REGULATORY AFFAIRS SPEC [address] [place] [address] PCP - Denzel Mckeon 07/15/24 ThursdayToya LPN [address] [place] [address] Licensed Practical Nurse Family Medicine 01/19/24 10/21/24 Claribel Scott, RN [address] [place] [address] Licensed Practical Nurse Family Medicine 10/21/24 12/06/24 Jess Marsh LPN [address] [facility] 110 [place] [address] 12/06/24 Esthela Tesfaye, KIRA 1479 [place] [address] Truck Spotter Family Medicine 02/03/25 documented as of this encounter
--- OUTSIDE RECORDS SUMMARY | 2025-03-28 09:15 | XMS_ITS | Encounter Summary ---
Author Organization [facility] Address [address] [facility] [place] [address] Care Team Providers Care Electric Sealing Machine Operator Name Role Phone Shlomo Hu MD Primary Care Provider Jacob Sharp VIOLIN TUTOR Unavailable [phone] Thursday, Toya ASSOCIATE PROFESSOR OF PSYCHOLOGY Unavailable [phone] Shlmoo Hu MD Unavailable [phone] Shante Kumar INTAKE COORDINATOR-FLATBED TRUCK DRIVER Unavailable Claribel Scott RN Unavailable Maximo Jess ASSOCIATE PROFESSOR OF PSYCHOLOGY Unavailable Esthela Tesfaye RUBBISH COLLECTOR Unavailable Encounter Details Date Type Department Care Team (Late st Contact Info) Description 10/28/2023 Abstract [facility] 112 [facility] 110 [place] [address] Shlomo Hu MD 112 [facility] 110 [place] [address] Social History Tobacco Use Types [...] often do you attend [facility] or adventist services? Patient declined 03/01/2023 Do you belong [...] Recorded Patient Health Questionnaire-2 Score 6 08/26/2023 [facility] of Occupat ional Health [...] ENDOCRINOLOGY [address] [place] [address] Tanya Lozano MD [address] [place] [address] 04/20/2025 3:00 PM EDT Office Visit [facility] [address] [place] [address] Sonny Rodriguez, DPM 3006 [facility] 5 [place] [address] 05/04/2025 2:50 PM EDT Office Visit [facility] [address] [place] [address] Sonny Rodriguez DPM 3006 [facility] 5 [place] [address] documented as of this encounter Visit Diagnoses Not on filedocumented in this encounter Additional Health Concerns Assessment Noted Time PHQ-9 Depression Total Score: 9 08/26/20 23 1:30 PM EST documented as of this encounter Care Teams Electric Sealing Machine Operator Relationship Specialty Start Date End Date Shlomo Hu MD [address] [place] [address] PCP - General Internal Medicine 02/15/23 [place] [address] [place] [address] PCP - [place] [employer] 08/14/23 Shlomo Hu MD [address] [place] [address] PCP - [place] [employer] 05/15/2407/14 Shante Kumar INTAKE COORDINATOR-FLATBED TRUCK DRIVER [address] [place] [address] PCP - Denzel Mckeon 07/15/24 ThursdayToya LPN [address] [place] [address] Licensed Practical Nurse Family Medicine 01/19/24 10/21/24 Claribel Scott, RN [address] [place] [address] Licensed Practical Nurse Family Medicine 10/21/24 12/06/24 Jess Marsh LPN [address] [facility] 110 [place] [address] 12/06/24 Esthela Tesfaye, KIRA [address] [place] [address] System Analyst Family Medicine 02/03/25 documented as of this encounter
--- OUTSIDE RECORDS SUMMARY | 2025-03-28 09:15 | XMS_ITS | Encounter Summary ---
Author Organization [facility] Address [address] [facility] [place] [address] Care Team Providers Care Wall Taper Helper Name Role Phone Shlomo Hu MD Primary Care Provider [phone] Jacob Sharp FILM LOADER Unavailable [phone] Thursday, Toya RESIDENT SERVICE COORDINATOR Unavailable [phone] Shlomo Hu MD Unavailable [phone] Shante Kumar COMMERCIAL GREEN RETROFIT ARCHITECT-MAINTENANCE DATA ANALYST Unavailable Claribel Scott RN Unavailable [phone] Jess Marsh RESIDENT SERVICE COORDINATOR Unavailable Esthela Tesfaye REGIONAL VICE PRESIDENT LIFE SALES Unavailable [phone] Encounter Details Date Type Department Care Team (Late st Contact Info) Description 09/22/2023 Orders Only [facility] [address] [place] [address] A, Unknown Practice [address] [place] [address] Social History Tobacco Use Types Packs/Day Years [...] How often do you attend [facility]ur or mandaeism services? Patient declined 03/01/2023 Do you belong to any clubs o r organizations such as confucianism groups, unions, fraternal or athletic groups, or [...] Recorded Patient Health Questionnaire-2 Score 6 08/26/2023 [facility] [place] of Occupat ional Health - Occupational Stress [...] slept in a jail (including now)? No 03/01/2023 Housing Stability Vital [...] SH ENDOCRINOLOGY [address] [place] [address] Tanya Lozano MD [address] [place] [address] 04/20/2025 3:00 PM EDT Office Visit [facility] [address] [place] [address] Sonny Rodriguez, DPM 3006 [facility] 5 [place] [address] 05/04/2025 2:50 PM EDT Office Visit [facility] [address] [place] [address] Sonny Rodriguez DPM 3006 [facility] 5 [place] [address] documented as of this encounter Procedures Procedure Name Priority Date/Time Associated Diagnosis Comments SCANNED LABS Routine 09/22/2023 3:07 PM EST documented in this encounter Results * SCANNED LABS (09/22/2023 3:07 PM EST) us Unknown Practice A LAB CHG PERFORMABLES Final Re sult documented in this encounter Visit Diagnoses Not on filedocumented in this encounter Additional Health Concerns Assessment Noted Time PHQ-9 Depression Total Score: 9 08/26/20 23 1:30 PM EST documented as of this encounter Care Teams Wall Taper Helper Relationship Specialty Start Date End Date Shlomo Hu MD [address] [place] [address] PCP - General Internal Medicine 02/15/23 [place] [address] [place] [address] PCP - [place] [employer] 08/14/23 Shlomo Hu MD [address] [place] [address] PCP - [place] [employer] 05/15/2407/14 Shante Kumar, COMMERCIAL GREEN RETROFIT ARCHITECT-MAINTENANCE DATA ANALYST [address] [place] [address] PCP - [place] [employer] 07/15/24 ThursdayToya LPN [address] [place] [address] Licensed Practical Nurse Family Medicine 01/19/24 10/21/24 Claribel Scott, PIETRO [address] [place] [address] Licensed Practical Nurse Family Medicine 10/21/24 12/06/24 Jess Marsh LPN [address] [email or web address] 110 [place] [address] 12/06/24 Esthela Tesfaye LSW [address] [place] [address] Panelboard Tank Pumper Family Medicine 02/03/25 documented as of this encounter
--- OUTSIDE RECORDS SUMMARY | 2025-03-28 09:15 | XMS_ITS | Encounter Summary ---
Author Organization [facility] Address [address] [facility] [place] [address] Care Team Providers Care Lay Out Machine Operator Name Role Phone Shlomo Hu MD Primary Care Provider [phone] Jacob Sharp DIGITAL LIBRARIAN Unavailable [phone] Thursday, Toya DIRECTOR OF PSYCHOLOGY Unavailable [phone] Shlomo Hu MD Unavailable [phone] Shante Kumar METAL BASE BLOCKER-SHIP ERECTOR Unavailable Claribel Scott RN Unavailable [phone] Jess Marsh DIRECTOR OF PSYCHOLOGY Unavailable Esthela Tesfaye MEDICAL SUPERVISOR Unavailable Encounter Details Date Type Department Care Team (Late st Contact Info) Description 10/13/2023 Abstract [facility] 112 [facility] 110 [place] [address] Shlomo Hu MD 112 [facility] 110 [place] [address] Social History Tobacco Use Types [...] How often do you attend [facility] or methodist services? Patient declined 03/01/2023 Do you belong [...] Recorded Patient Health Questionnaire-2 Score 6 08/26/2023 [facility] of Occupat ional Health - [...] SH ENDOCRINOLOGY [address] [place] [address] Tanya Lozano MD [address] [place] [address] 04/20/2025 3:00 PM EDT Office Visit [facility] [address] [place] [address] Sonny Rodriguez, DPM 3006 [facility] 5 [place] [address] 05/04/2025 2:50 PM EDT Office Visit [facility] [address] [place] [address] Sonny Rodriguez DPM 3006 [facility] 5 [place] [address] documented as of this encounter Visit Diagnoses Not on filedocumented in this encounter Additional Health Concerns Assessment Noted Time PHQ-9 Depression Total Score: 9 08/26/20 23 1:30 PM EST documented as of this encounter Care Teams Lay Out Machine Operator Relationship Specialty Start Date End Date Shlomo Hu MD [address] [place] [address] PCP - General Internal Medicine 02/15/23 [place] [address] [place] [address] PCP - [place] Commercial 08/14/23 Shlomo Hu MD [address] [place] [address] PCP - [place] Commercial 05/15/2407/14 Shante Kumar METAL BASE BLOCKER-SHIP ERECTOR [address] [place] [address] PCP - Denzel Mckeon 07/15/24 ThursdayToya LPN [address] [place] [address] Licensed Practical Nurse Family Medicine 01/19/24 10/21/24 Claribel Scott, RN [address] [place] [address] Licensed Practical Nurse Family Medicine 10/21/24 12/06/24 Jess Marsh LPN [address] [facility] 110 [place] [address] 12/06/24 Esthela Tesfaye, KIRA [address] [place] [address] Carpet Cutter Family Medicine 02/03/25 documented as of this encounter
--- OUTSIDE RECORDS SUMMARY | 2025-03-28 09:15 | XMS_ITS | Encounter Summary ---
Author Organization [facility] Address [address] [place] [address] Care Team Providers Care Boat Hop Name Role Phone Shlomo Hu MD Primary Care Provider [phone] Jacob Sharp PHYSICAL METEOROLOGIST Unavailable Thursday, Toya CONTROL DIRECTOR Unavailable [phone] Shlomo Hu MD Unavailable [phone] Shante Kumar SHAVING MACHINE OPERATOR-RN LICENSED PRACTICAL Unavailable Claribel Scott RN Unavailable Jess Marsh CONTROL DIRECTOR Unavailable Esthela Tesfaye MANUFACTURING AREA MANAGER Unavailable [phone] Encounter Details Date Type Department Care Team (Late st Contact Info) Description 11/20/2023 Clinisync Result Encounter [facility] External Department Unsolicited [...] any clubs o r organizations such as sabianism groups, unions, fraternal or athletic groups, or [...] Patient Health Questionnaire-2 Score 6 08/26/2023 [facility] of Occupat ional Health - [...] 9:50 AM EDT Office Visit [facility] [address] [place] [address] Tanya Lozano MD [address] [place] [address] 04/20/2025 3:00 PM EDT Office Visit [facility] [address] [place] [address] Sonny Rodriguez, DPM 3006 [facility] 5 [place] [address] 05/04/2025 2:50 PM EDT Office Visit [facility] [address] [facility] 120 [place] [address] Sonny Rodriguez, DPM 3006 [facility] 5 [place] [address] documented as of this encounter Procedures Procedure Name Priority Date/Time Associated Diagnosis Comments XR CHEST 2V 11/20/2023 11:07 AM EST documented in this encounter Results * XR CHEST 2V (11/20/2023 11:07 AM EST) Anatomical Region Laterality Modality Other 11/20/2023 11:0 7 AM EST Narrative 11/20/2023 11:10 AM EST [address] [address] XRay Report Signed Patient: MELINA TAVERAS MR#: [id number] : 1975 Acct:[id number] Age/Sex: 48 / F ADM Date: 11/20/23 Loc: RAD Attending Dr: PHIL HECTOR Ordering Physician: PHIL HECTOR Date of Service: 11/20/23 Procedure(s): XR chest 2V Accession Number(s): [id number] cc: SHLOMO HU ; PHIL HECTOR [address] [address] Patient Name: MELINA TAVERAS MRN: [id number]:[id number] date: 1975 Sex: F Assigned Patient Location: [facility] Current Patient Location: [place] Accession/Order Number: [id number] Exam Date: 11/20/2023 09:42 Report Date: 11/20/2023 11:07 At the request of: PHIL HECTOR Procedure: XR chest 2V EXAM: XR chest 2V HISTORY: Pleural effusion COMPARISON: None. TECHNIQUE: PA and lateral views of the chest. FINDINGS: The cardiomediastinal silhouette is normal. Left-sided PICC line with distal tip in SVC. No focal consolidation is identified. There is no pneumothorax. No pleural effusion is noted. The osseous structures are intact. XR/XR chest 2V IMPRESSION: No acute cardiopulmonary process. Electronically authenticated by: LAMAR MUNIZ Date: 11/20/2023 11:07 Dictated By: Lamar Muniz M.D. Signed By: 11/20/23 1110 DD/ 1107 TD/TT: Neonatal Surgeon: Procedure Note Radiology, Radiologist, MD - 11/20/2023 [place] [address] XRay Report Signed Patient: MELINA TAVERAS LMR#: [id number] : 1975Acct:[id number] Age/Sex: 48 / FADM Date: 11/20/23 Loc: [facility] Attending Dr: PHIL HECTOR Ordering Physician: PHIL HECTOR Date of Service: 11/20/23 Procedure(s): XR chest 2V Accession Number(s): [id number] cc: SHLOMO HU ; PHIL HECTOR [place] [address] Patient Name: MELINA TAVERAS MRN: [id number] date: 1975 Sex: F Assigned Patient Location: [facility] Current Patient Location: Accession/Order Number: [id number] Exam Date: 11/20/2023 09:42 Report Date: 11/20/2023 11:07 At the request of: PHIL HECTOR Procedure: XR chest 2V EXAM: XR chest 2V HISTORY: Pleural effusion COMPARISON: None. TECHNIQUE: PA and lateral views of the chest. FINDINGS: The cardiomediastinal silhouette is normal. Left-sided PICC line withdistal tip in SVC. No focal consolidation is identified. There is no pneumothorax. No pleural effusion is noted. The osseous structures are intact. XR/XR chest 2V IMPRESSION: No acute cardiopulmonary process. Electronically authenticated by: LAMAR MUNIZ Date: 11/20/2023 11:07 Dictated By: Lamar Muniz M.D. Signed By:11/20/23 1110 DD/ 1107 TD/TT: Neonatal Surgeon: us Generic External Data Provider [facility] Final Result documented in this encounter Visit Diagnoses Not on filedocumented in this encounter Additional Health Concerns Assessment Noted Time PHQ-9 Depression Total Score: 9 08/26/20 23 1:30 PM EST documented as of this encounter Care Teams Boat Hop Relationship Specialty Start Date End Date Shlomo Hu MD 112 [facility] 110 [place] [address] PCP - General Internal Medicine 02/15/23 [place] [address] [place] [address] PCP - [place] [employer] 08/14/23 Shlomo Hu MD 112 [facility] 110 [place] [address] PCP - [place] [employer] 05/15/2407/14 Shante Kumar APRN-RN LICENSED PRACTICAL 112 [facility] 160 [place] [address] PCP - [place] Commercial 07/15/24, DUKE Pittman 112 [facility] 110 [place] [address] Licensed Practical Nurse Family Medicine 01/19/24 10/21/24 Claribel Scott, RN [address] [place], [place] [address] Licensed Practical Nurse Family Medicine 10/21/24 12/06/24 Jess Marsh LPN 112 [facility] 110 [place] [address] 12/06/24 Esthela Tesfaye, KIRA [address] [place] [address] Fire Information Officer Family Medicine 02/03/25 documented as of this encounter
--- OUTSIDE RECORDS SUMMARY | 2025-03-28 09:15 | XMS_ITS | Encounter Summary ---
Author Organization [facility] Address [address] [place] [address] Care Team Providers Care Network Administrator Name Role Phone Sean Ruiz DO Primary Care Provider [phone] Jacob Sharp Unavailable [address] Newton [address] Unavailable [phone] Unavailable [phone] Fritz HENDERSON MD, Shlomo B Primary Care Provider [phone] Yuan Miller MD, PhD Unavailable [phone] Source Comments In the event this information is protected by the Federal Confidentiality of Alcohol and Drug AbusePatient Records regulations: The Federal rules restrict any use of the information to criminally investigate or prosecute any alcohol or drug abuse patient.[facility] Encounter Details Date Type Department Care Team (Late st Contact Info) Description 07/07/2023 Get Medical Advice Gastroenterology [address] [phone] Jorge L Saha PA-C [address] [facility] [place] [address] Iv Social History Tobacco Use Types Packs/Day Years [...] slept in a custodial (including now)? No 09/18/2022 Area Deprivation Index Answer Date Reagan rded National Score (1-100), lower number is lower ri sk 63 03/05/2023 State Score (1-10), lower number is lower risk 4 03/05/2023 Data from: https://www.neighborhoodatlas.medicine.[facility]/. Last address used for calculation [address] [facility] 270 03/05/2023 Comments No Sex and Gender [...] AM EDT Office Visit General Surgery [address] [place] [address] Michael Mora PA-C [address] [place] [address] follow up- add on ok'd by Michael 04/07/2025 1:00 PM EDT [facility] Neurological [facility] [address] [place] [id number] Agatha Kim, DILAN [address] [place] [id number] 04/19/2025 11:00 AM EDT [facility] Neurological Mu-Ism [address] [place] [phone] Joann Loera APRN.LABORATORY OPERATIONS COORDINATOR [address] [place] [id number] Cognitive movement issues 04/21/2025 8:30 AM EDT [facility] Nutrition Therapy [address] [place] [address] Tiffany Banks, RD [address] [place] [address] f/u TF forula tolerance and hydration 05/29/2025 9:00 AM EDT [facility] Gastroenterology [address] [place] [id number] Johanna Martinez MD [facility] [address] [place] [address] 3 month follow up 06/28/2025 10:00 AM EDT [facility] Neurology Pain [address] [place] [address] [place] [address] [place] [id number] Follow up for pain documented as of [...] documented as of this encounter Care Teams Network Administrator Relationship Specialty [place] [address] [place] [address] PCP - General Family Medicine 07/09/12 10/05/23 Shlomo Hu II, MD [address] [facility] 110 [place] [address] PCP - General Internal Medicine 10/06/23 Jacob Sharp [address] [place] [address] Referring 04/30/[address] [place] [address] Registered Dietitian Nutrition 06/24/[address] [place] [address] Registered Dietitian Nutrition 08/27/23 Yuan Miller MD, PhD [address] [place] [address] Surgeon General Surgery 02/03/24 documented as of this encounter
--- OUTSIDE RECORDS SUMMARY | 2025-03-28 09:15 | XMS_ITS | Encounter Summary ---
Author Organization [facility] Address [facility] [place] [address] Care Team Providers Care Director Of Admissions Name Role Phone Jacob Sharp Unavailable Rasheeda Newton RD Unavailable [phone] Unavailable [phone] Fritz HENDERSON MD, Shlomo Momin Primary Care Provider [phone] Yuan Miller MD, PhD Unavailable [phone] Source Comments In the event this information is protected by the Federal Confidentiality of Alcohol and Drug AbusePatient Records regulations: The Federal rules restrict any use of the information to criminally investigate or prosecute any alcohol or drug abuse patient.[facility] Encounter Details Date Type Department Care Team (Late st Contact Info) Description 05/17/2024 Patient Msg Neurology [address] [place], [place] [id number] Provider, [facility] [employer] Social History Tobacco Use [...] PHQ-2 Answer Date Recorded PHQ-2 score 3 05/02/2024 Hunger Vital Sign Answer Date Recorded Within [...] in a alf (including now)? No 02/16/2024 Area Deprivation Index Answer Date Reagan rded National Score (1-100), lower number is lower ri sk 63 03/05/2023 State Score (1-10), lower number is lower risk 4 03/05/2023 Data from: https://www.neighborhoodatlas.medicine.[facility].edu/. Last address used for calculation [address] [...] AM EDT Office Visit General Surgery [address] [place] [address] Michael Mora PA-C [address] [place] [address] follow up- add on ok'd by Michael 04/07/2025 1:00 PM EDT [facility] Neurological Faith [address] [id number] Agatha Kim PSYD [address] [id number] 04/19/2025 11:00 AM EDT [facility] Neurological Faith [address] [id number] Joann Loera APRN.FRONT DESK MONITOR [address] [place] [address] Cognitive movement issues 04/21/2025 8:30 AM EDT [facility] Nutrition Therapy [address] [id number] [place] [address] f/u TF forula tolerance and hydration 05/29/2025 9:00 AM EDT [facility] Gastroenterology [address] [address] Johanna Martinez MD [facility] [address] [place], [place] [id number] 3 month follow up 06/28/2025 10:00 AM EDT [facility] Neurology Pain [address] [place] [address] [place] [address] [place] [address] Follow up for pain documented as of this encounter Visit Diagnoses Not on filedocumented in this encounter Additional Health Concerns Infection Onset Date Last Indicated Resolved Time COVID-19 Rule-Out 07/29/2024 07/29/2024 07/29/2024 7:20 PM EST documented as of this encounter Care Teams Director Of Admissions Relationship Specialty Start Date End Date Shlomo Hu II, MD [address] [facility] 110 [place] [address] PCP - General Internal Medicine 10/06/23 Jacob Sharp [address] [place] [address] Referring 04/30/[address] [id number] Registered Dietitian Nutrition 06/24/[address] [place] [address] Registered Dietitian Nutrition 08/27/23 Yuan Miller MD, PhD [facility] [place] [address] Surgeon General Surgery 02/03/24 documented as of this encounter
--- OUTSIDE RECORDS SUMMARY | 2025-03-28 09:15 | XMS_ITS | Encounter Summary ---
Author Organization [facility] Address [address] [facility] [place] [address] Care Team Providers Care Auto Haulaway Driver Name Role Phone Shlomo Hu MD Primary Care Provider Jacob Sharp CERTIFICATION OFFICER Unavailable Thursday, Toya IT SYSTEMS ADMINISTRATOR Unavailable [phone] Shlomo Hu MD Unavailable [phone] Shante Kumar LIGHT INDUSTRIAL-INSPECTOR CIRCUITRY NEGATIVE Unavailable Claribel Scott RN Unavailable Maximo Jess IT SYSTEMS ADMINISTRATOR Unavailable Esthela Tesfaye SAND MILL OPERATOR FACING SAND Unavailable Encounter Details Date Type Department Care Team (Late st Contact Info) Description 10/06/2023 Abstract [facility] 112 [facility] 110 [place] [address] Shlomo Hu MD 112 [facility] 110 [place] [address] Social History Tobacco Use Types [...] week 03/01/2023 How often do you attend [facility] or anglican services? Patient declined 03/01/2023 [...] Recorded Patient Health Questionnaire-2 Score 6 08/26/2023 [facility] of Occupat ional Health - Occupational [...] SH ENDOCRINOLOGY [address] [place] [address] Tanya Lozano MD [address] [place] [address] 04/20/2025 3:00 PM EDT Office Visit [facility] POD[facility] [address] [place] [address] Sonny Rodriguez, DPM 3006 [facility] 5 [place] [address] 05/04/2025 2:50 PM EDT Office Visit [facility] POD[facility] [address] [place] [address] Sonny Rodriguez DPM 3006 [facility] 5 [place] [address] documented as of this encounter Visit Diagnoses Not on filedocumented in this encounter Additional Health Concerns Assessment Noted Time PHQ-9 Depression Total Score: 9 08/26/20 23 1:30 PM EST documented as of this encounter Care Teams Auto Haulaway Driver Relationship Specialty Start Date End Date Shlomo Hu MD [address] [place] [address] [place] [address] PCP - General Internal Medicine 02/15/23 [place] [address] [place] [address] PCP - [place] [employer] 08/14/23 Shlomo Hu MD [address] [place] [address] [place] [address] PCP - [place] [employer] 05/15/2407/14 Shante Kumar LIGHT INDUSTRIAL-INSPECTOR CIRCUITRY NEGATIVE [address] [place] [address] [place] [address] PCP - Denzel Mckeon 07/15/24 ThursdayToya LPN [address] [place] [address] Licensed Practical Nurse Family Medicine 01/19/24 10/21/24 Claribel Scott, RN [address] [place] [address] Licensed Practical Nurse Family Medicine 10/21/24 12/06/24 Jess Marsh LPN [address] [facility] 110 [place] [address] 12/06/24 Esthela Tesfaye, KIRA 14[address] [place] [address] Nurse Practitioner Hospitalist Family Medicine 02/03/25 documented as of this encounter
--- OUTSIDE RECORDS SUMMARY | 2025-03-28 09:15 | XMS_ITS | Encounter Summary ---
Author Organization [facility] Address [address] [facility] [place] [address] Care Team Providers Care Barn Operator Name Role Phone Shlomo Hu MD Primary Care Provider [phone] Jacob Sharp COOK STATION Unavailable [phone] Thursday, Toya RETAIL DEPARTMENT SUPERVISOR Unavailable [phone] Shlomo Hu MD Unavailable [phone] Shante Kumar COMMUNITY ASSISTANT-ELEVATOR CONSTRUCTOR SUPERVISOR Unavailable Claribel Scott RN Unavailable Jess Marsh RETAIL DEPARTMENT SUPERVISOR Unavailable Esthela Tesfaye SUPERVISOR TRUST ACCOUNTS Unavailable Encounter Details Date Type Department Care Team (Late st Contact Info) Description 10/12/2023 Abstract [facility] 112 [facility] [place] [facility] 110 [place] [address] Shlomo Hu MD 112 [facility] 110 [place] [address] Social History Tobacco Use Types [...] week 03/01/2023 How often do you attend [facility] or yazidi services? Patient declined 03/01/2023 Do you belong [...] Recorded Patient Health Questionnaire-2 Score 6 08/26/2023 [facility] of Occupat ional Health - Occupational [...] SH ENDOCRINOLOGY [address] [place] [address] Tanya Lozano MD [address] [place] [address] 04/20/2025 3:00 PM EDT Office Visit [facility] [address] [place] [address] Sonny Rodriguez, DPM 3006 [facility] 5 [place] [address] 05/04/2025 2:50 PM EDT Office Visit [facility] POD[facility]ATRY [address] [place] [address] Sonny Rodriguez DPM 3006 [facility] 5 [place] [address] documented as of this encounter Visit Diagnoses Not on filedocumented in this encounter Additional Health Concerns Assessment Noted Time PHQ-9 Depression Total Score: 9 08/26/20 23 1:30 PM EST documented as of this encounter Care Teams Barn Operator Relationship Specialty Start Date End Date Shlomo Hu MD [address] [place] [address] PCP - General Internal Medicine 02/15/23 [place] [address] [place] [address] PCP - [place] Commercial 08/14/23 Shlomo Hu MD [address] [place] [address] PCP - [place] Commercial 05/15/2407/14 Shante Kumar COMMUNITY ASSISTANT-ELEVATOR CONSTRUCTOR SUPERVISOR [address] [place] [address] PCP - Denzel Mckeon 07/15/24 ThursdayToya LPN [address] [place] [address] Licensed Practical Nurse Family Medicine 01/19/24 10/21/24 Claribel Scott, RN [address] [place] [address] Licensed Practical Nurse Family Medicine 10/21/24 12/06/24 Jess Marsh LPN [address] [facility] 110 [place] [address] 12/06/24 Esthela Tesfaye, KIRA 14[address] [place] [address] Psychometric Examiner Family Medicine 02/03/25 documented as of this encounter
--- OUTSIDE RECORDS SUMMARY | 2025-03-28 09:15 | XMS_ITS | Encounter Summary ---
Author Organization [facility] Address [address] [place] [address] Care Team Providers Care Environmental Intern Name Role Phone Shlomo Hu MD Primary Care Provider Jacob Sharp AIR POLLUTION ANALYST Unavailable [phone] Thursday, Toya LICENSED PSYCHOLOGIST DIRECTOR Unavailable [phone] Shlomo Hu MD Unavailable [phone] Shante Kumar ANGLE DOZER OPERATOR-JACQUARD LOOM FIXER Unavailable Claribel Scott RN Unavailable Jess Marsh LICENSED PSYCHOLOGIST DIRECTOR Unavailable Esthela Tesfaye SHELLFISH CHECKER Unavailable Encounter Details Date Type Department Care Team (Late st Contact Info) Description 11/24/2023 Orders Only [facility] [address] [place] [address] Unallocated, Noms Provider, [address] [place], [place] [address] Social History Tobacco Use Types Packs/Day Years [...] week 03/01/2023 How often do you attend [facility] or moravian services? 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 Not on file Not on file documented as of this encounter Plan of Treatment Upcoming Encounters Date Type Department Care Team (Late st Contact Info) Description 04/12/2025 9:50 AM EDT Office Visit [facility] ENDOCRINOLOGY [address] [place] [address] Tanya Lozano MD [address] [place] [address] 04/20/2025 3:00 PM EDT Office Visit [facility] POD[facility]AT[facility] [address] [place] [address] Sonny Rodriguez DPM 3006 [facility] 5 [place] [address] 05/04/2025 2:50 PM EDT Office Visit [facility] POD[facility] [address] [place] [address] Sonny Rodriguez DPLudmila 3006 [facility] 5 [place] [address] documented as of this encounter Procedures Procedure Name Priority Date/Time Associated Diagnosis Comments US THYROID Routine 11/20/2023 9:03 AM EST documented in this encounter Results * US thyroid (11/20/2023 9:03 AM EST) Anatomical Region Laterality Modality Head, Neck Ultrasound us Noms Provider Unallocated MD FRAGA US PROCEDURES F inal Result documented in this encounter Visit Diagnoses Not on filedocumented in this encounter Additional Health Concerns Assessment Noted Time PHQ-9 Depression Total Score: 9 08/26/20 23 1:30 PM EST documented as of this encounter Care Teams Environmental Intern Relationship Specialty Start Date End Date Shlomo Hu MD [address] [place] [address] PCP - General Internal Medicine 02/15/23 [place] [address] [facility] [place] [address] PCP - [place] Commercial 08/14/23 Shlomo Hu MD [address] [facility] 110 [place] [address] PCP - [place] Commercial 05/15/2407/14 Shante Kumar, ANGLE DOZER OPERATOR-JACQUARD LOOM FIXER [address] [place] [address] PCP - [place] Commercial 07/15/24 ThursdayToya LPN [address] [facility] 110 [place] [address] Licensed Practical Nurse Family Medicine 01/19/24 10/21/24 Claribel Scott, RN [address] [place] [address] Licensed Practical Nurse Family Medicine 10/21/24 12/06/24 Jess Marsh LPN [address] [facility] 110 [place] [address] 12/06/24 Esthela Tesfaye LSW [address] [place] [address] Byproducts Extractor Family Medicine 02/03/25 documented as of this encounter
--- OUTSIDE RECORDS SUMMARY | 2025-03-28 09:15 | XMS_ITS | Encounter Summary ---
Author Organization [facility] Address [address] [place] [address] Care Team Providers Care Cable Systems Installer Name Role Phone Sean Ruiz DO Primary Care Provider [phone] Jacob Sharp Unavailable Rasheeda Newton RD Unavailable [phone] Unavailable [phone] Fritz HENDERSON MD, Shlomo B Primary Care Provider [phone] Yuan Miller MD, PhD Unavailable [phone] Source Comments In the event this information is protected by the Federal Confidentiality of Alcohol and Drug AbusePatient Records regulations: The Federal rules restrict any use of the information to criminally investigate or prosecute any alcohol or drug abuse patient.[facility] Encounter Details Date Type Department Care Team (Late st Contact Info) Description 07/06/2023 Get Medical Advice Gastroenterology [address] [id number] Jorge L Saha PA-C 2048 [facility]note 2[facility] [place] [address] Referral for gut rehab clinic Social History Tobacco Use Types Packs/Day Years [...] slept in a detention (including now)? No 09/18/2022 Area Deprivation Index Answer Date Reagan rded National Score (1-100), lower number is lower ri sk 63 03/05/2023 State Score (1-10), lower number is lower risk 4 03/05/2023 Data from: https://www.neighborhoodatlas.[facility] health/. Last address used for calculation [address] [address] 03/05/2023 Comments No Sex and Gender Information [...] Office Visit General Surgery [address] [id number] Michael Mora PA-C [address] [place] [address] follow up- add on ok'd by Michael 04/07/2025 1:00 PM EDT [facility] Neurological Scientology 9[address] [place] [address] Agatha Kim, DILAN [address] [place] [address] 04/19/2025 11:00 AM EDT [facility] Neurological Scientology [address] [place] [address] Joann Loera APRN.CASH APPLICATIONS ANALYST [address] [place] [address] Cognitive movement issues 04/21/2025 8:30 AM EDT [facility] Nutrition Therapy [address] [id number] Tiffany Banks, RD [address] [place] [id number] f/u TF forula tolerance and hydration 05/29/2025 9:00 AM EDT [facility] Gastroenterology [address] [place] [phone] Johanna Martinez MD [facility] [address] [place], [place] [phone] 3 month follow up 06/28/2025 10:00 AM EDT [facility] Neurology Pain [address] [phone] [place] [address] [address] [id number] Follow up for pain documented as of this encounter Visit Diagnoses Diagnosis Chronic pancreatitis, unspecified pancreatitis type (HCC)- Primary documented in this encounter Additional Health Concerns Infection [...] documented as of this encounter Care Teams Cable Systems Installer Relationship Specialty [place] [address] [place] [address] PCP - General Family Medicine 07/09/12 10/05/23 Shlomo Hu II, MD [address] [place] [address] [place] [address] PCP - General Internal Medicine 10/06/23 Jacob Sharp [address] [place] [address] Referring 04/30/[address] [place], [place] [id number] Registered Dietitian Nutrition 06/24/[address] [place] [address] Registered Dietitian Nutrition 08/27/23 Yuan Miller MD, PhD [address] [id number] Surgeon General Surgery 02/03/24 documented as of this encounter
--- OUTSIDE RECORDS SUMMARY | 2025-03-28 09:15 | XMS_ITS | Encounter Summary ---
Author Organization [facility] Address [address] [facility] [place] [address] Care Team Providers Care Bag End Sewer Name Role Phone Shlomo Hu MD Primary Care Provider Jacob Sharp HOSPICE MASSAGE THERAPIST Unavailable Thursday, Toya SEGMENT PRODUCER Unavailable [phone] Shlomo Hu MD Unavailable [phone] Shante Kumar FORM WORKER-BRICK UNLOADER TENDER Unavailable Claribel Scott RN Unavailable [phone] Maximo Jess SEGMENT PRODUCER Unavailable Esthela Tesfaye RN CHARGE Unavailable Encounter Details Date Type Department Care Team (Late st Contact Info) Description 10/26/2023 Abstract [facility] 112 [facility] 110 [place] [address] Shlomo Hu MD 112 [facility] 110 [place] [address] Social History Tobacco Use Types [...] often do you attend [facility] or advent services? Patient declined 03/01/2023 Do you belong to any clubs o r organizations such as nondenominational groups, unions, fraternal or athletic groups, or [...] Recorded Patient Health Questionnaire-2 Score 6 08/26/2023 [facility] of Occupat ional Health - Occupational [...] SH ENDOCRINOLOGY [address] [place] [address] Tanya Lozano MD [address] [place] [address] 04/20/2025 3:00 PM EDT Office Visit [facility] PODIATRY [address] [place] [address] Sonny Rodriguez, DPM 3006 [facility] 5 [place] [address] 05/04/2025 2:50 PM EDT Office Visit [facility] PODIATRY [address] [place] [address] Sonny Rodriguez DPM 3006 [facility] 5 [place] [address] documented as of this encounter Visit Diagnoses Not on filedocumented in this encounter Additional Health Concerns Assessment Noted Time PHQ-9 Depression Total Score: 9 08/26/20 23 1:30 PM EST documented as of this encounter Care Teams Bag End Sewer Relationship Specialty Start Date End Date Shlomo Hu MD [address] [place] [address] PCP - General Internal Medicine 02/15/23 [place] [address] [place] [address] PCP - [place] Commercial 08/14/23 Shlomo Hu MD [address] [place] [address] PCP - [place] Commercial 05/15/2407/14 Shante Kumar FORM WORKER-BRICK UNLOADER TENDER [address] [place] [address] PCP - Denzel Mckeon 07/15/24 ThursdayToya LPN [address] [place] [address] Licensed Practical Nurse Family Medicine 01/19/24 10/21/24 Claribel Scott, RN [address] [place] [address] Licensed Practical Nurse Family Medicine 10/21/24 12/06/24 Jess Marsh LPN [address] [facility] 110 [place] [address] 12/06/24 Esthela Tesfaye, KIRA 1479 [place] [address] Duty Officer Family Medicine 02/03/25 documented as of this encounter
--- OUTSIDE RECORDS SUMMARY | 2025-03-28 09:15 | XMS_ITS | Encounter Summary ---
Author Organization [facility] Address [address] [facility] [place] [address] Care Team Providers Care Dude Ranch Manager Name Role Phone Shlomo Hu MD Primary Care Provider Jacob Sharp BRAZING FURNACE OPERATOR Unavailable [phone] Thursday, Toya BILINGUAL SPEECH THERAPIST Unavailable [phone] Shlomo Hu MD Unavailable [phone] Shante Kumar MOTOR EXPRESS CLERK-BOARD DESIGN ENGINEER Unavailable Claribel Scott RN Unavailable Maximo Jess BILINGUAL SPEECH THERAPIST Unavailable Esthela Tesfaye BREAST PULLER Unavailable Encounter Details Date Type Department Care Team (Late st Contact Info) Description 10/29/2023 Abstract [facility] 112 [facility] 110 [place] [address] Shlomo Hu MD 112 [facility] 110 [place] [address] Social History Tobacco Use Types [...] week 03/01/2023 How often do you attend [facility] or hoahaoism services? Patient declined 03/01/2023 Do you belong [...] Recorded Patient Health Questionnaire-2 Score 6 08/26/2023 [facility] of Occupat ional Health - [...] ENDOCRINOLOGY [address] [place] [address] Tanya Lozano MD [address] [place] [address] 04/20/2025 3:00 PM EDT Office Visit [facility] PODIATRY [address] [place] [address] Sonny Rodriguez, DPM 3006 [facility] 5 [place] [address] 05/04/2025 2:50 PM EDT Office Visit [facility] PODIATRY [address] [place] [address] Sonny Rodriguez DPM 3006 [facility] 5 [place] [address] documented as of this encounter Visit Diagnoses Not on filedocumented in this encounter Additional Health Concerns Assessment Noted Time PHQ-9 Depression Total Score: 9 08/26/20 23 1:30 PM EST documented as of this encounter Care Teams Dude Ranch Manager Relationship Specialty Start Date End Date Shlomo Hu MD [address] [place] [address] PCP - General Internal Medicine 02/15/23 [place] [address] [place] [address] PCP - [place] Commercial 08/14/23 Shlomo Hu MD [address] [place] [address] PCP - [place] Commercial 05/15/2407/14 hSante Kumar MOTOR EXPRESS CLERK-BOARD DESIGN ENGINEER [address] [place] [address] PCP - Denzel Mckeon 07/15/24 ThursdayToya LPN [address] [place] [address] Licensed Practical Nurse Family Medicine 01/19/24 10/21/24 Claribel Scott, RN [address] [place] [address] Licensed Practical Nurse Family Medicine 10/21/24 12/06/24 Jess Marsh LPN [address] [facility] 110 [place] [address] 12/06/24 Esthela Tesfaye, KIRA 1479 [place] [address] Software Test And Validation Engineer Family Medicine 02/03/25 documented as of this encounter
--- OUTSIDE RECORDS SUMMARY | 2025-03-28 09:15 | XMS_ITS | Encounter Summary ---
Author Organization [facility] Address [address] [facility] [place] [address] Care Team Providers Care Clinical Assistant Professor Name Role Phone Shlomo Hu MD Primary Care Provider [phone] Jacob Sharp EVALUATION ENGINEER Unavailable Thursday, Toya DATA SYSTEMS MANAGER Unavailable [phone] Shlomo Hu MD Unavailable [phone] Shante Kumar STORE RECEIVING SPECIALIST-SENIOR PROCESS ENGINEER Unavailable Claribel Scott RN Unavailable [phone] Jess Marsh DATA SYSTEMS MANAGER Unavailable Esthela Tesfaye STATISTICS MANAGER Unavailable [phone] Encounter Details Date Type Department Care Team (Late st Contact Info) Description 10/12/2023 Orders Only [facility] [address] [place] [address] A, Unknown Practice [address] [place] [address] Social History Tobacco Use Types [...] How often do you attend chur or jew services? Patient declined 03/01/2023 Do you belong to any clubs o r organizations such as mormonism groups, unions, fraternal or athletic groups, or [...] Recorded Patient Health Questionnaire-2 Score 6 08/26/2023 [facility] [place] of Occupat ional Health - Occupational Stress [...] SH ENDOCRINOLOGY [address] [place] [address] Tanya Lozano MD [address] [place] [address] 04/20/2025 3:00 PM EDT Office Visit [facility] [address] [place] [address] Sonny Rodriguez, DPM [address] [facility] 5 [place] [address] 05/04/2025 2:50 PM EDT Office Visit [facility] [address] [place] [address] Sonny Rodriguez DPM [address] [facility] 5 [place] [address] documented as of this encounter Procedures Procedure Name Priority Date/Time Associated Diagnosis Comments US GI ENDOSCOPIC Routine 10/08/2023 8:04 AM EST documented in this encounter Results * US GI endoscopic (10/08/2023 8:04 AM EST) Anatomical Region Laterality Modality Body Ultrasound us Unknown Practice A IMG US PROCEDURES Final Resul t documented in this encounter Visit Diagnoses Not on filedocumented in this encounter Additional Health Concerns Assessment Noted Time PHQ-9 Depression Total Score: 9 08/26/20 23 1:30 PM EST documented as of this encounter Care Teams Clinical Assistant Professor Relationship Specialty Start Date End Date Shlomo Hu MD [address] [place] [address] PCP - General Internal Medicine 02/15/23 [place] [address] [place] [address] PCP - [place] [employer] 08/14/23 Shlomo Hu MD [address] [place] [address] PCP - [place] [employer] 05/15/2407/14 Shante Kumar, STORE RECEIVING SPECIALIST-SENIOR PROCESS ENGINEER [address] [place] [address] PCP - [place] [employer] 07/15/24 ThursdayToya LPN [address] [place] [address] Licensed Practical Nurse Family Medicine 01/19/24 10/21/24 Claribel Scott RN [address] [place] [address] Licensed Practical Nurse Family Medicine 10/21/24 12/06/24 Jess Marsh LPN [address] [facility] 110 [place] [address] 12/06/24 Esthela Tesfaye, KIRA [address] [place] [address] [facility] 02/03/25 documented as of this encounter
--- OUTSIDE RECORDS SUMMARY | 2025-03-28 09:15 | XMS_ITS | Encounter Summary ---
Author Organization [facility] Address [address] [facility] [place] [address] Care Team Providers Care Shoemaker Apprentice Name Role Phone Shlomo Hu MD Primary Care Provider Jacob Sharp TRACK LAYER HEAD Unavailable Thursday, Toya INFORMATION SECURITY ASSOCIATE Unavailable [phone] Shlomo Hu MD Unavailable [phone] Shante Kumar BOTTLE HOUSE PUMPER-EDUCATIONAL RESOURCE COORDINATOR Unavailable Claribel Scott RN Unavailable Jess Marsh INFORMATION SECURITY ASSOCIATE Unavailable Esthela Tesfaye TROUBLE TRACER Unavailable Encounter Details Date Type Department Care Team (Late st Contact Info) Description 10/22/2023 Orders Only [facility] [address] [place] [address] A, Unknown Practice [address] [place] [address] Social History Tobacco Use Types [...] How often do you attend chur or christian services? Patient declined 03/01/2023 Do you belong to any clubs o r organizations such as scientology groups, unions, fraternal or athletic groups, or [...] Recorded Patient Health Questionnaire-2 Score 6 08/26/2023 [facility] [place] of Occupat ional Health - Occupational Stress [...] SH ENDOCRINOLOGY [address] [place] [address] Tanya Lozano MD [address] [place] [address] 04/20/2025 3:00 PM EDT Office Visit [facility] [address] [place] [address] Sonny Rodriguez, DPM [address] [facility] 5 [place] [address] 05/04/2025 2:50 PM EDT Office Visit [facility] [address] [place] [address] Sonny Rodriguez DPM [address] [facility] 5 [place] [address] documented as of this encounter Procedures Procedure Name Priority Date/Time Associated Diagnosis Comments COLONOSCOPY DIAGNOSTIC Routine 10/08/2023 2:44 PM EST documented in this encounter Results * COLONOSCOPY DIAGNOSTIC (10/08/2023 2:44 PM EST) Anatomical Region Laterality Modality Radiographic Edwige ging us Unknown Practice A IMG XR PROCEDURES Final Resul t documented in this encounter Visit Diagnoses Not on filedocumented in this encounter Additional Health Concerns Assessment Noted Time PHQ-9 Depression Total Score: 9 08/26/20 23 1:30 PM EST documented as of this encounter Care Teams Shoemaker Apprentice Relationship Specialty Start Date End Date Shlomo Hu MD [address] [place] [address] PCP - General Internal Medicine 02/15/23 [place] [address] [place] [address] PCP - [place] [employer] 08/14/23 Shlomo Hu MD [address] [place] [address] PCP - [place] [employer] 05/15/2407/14 Shante Kumar, BOTTLE HOUSE PUMPER-EDUCATIONAL RESOURCE COORDINATOR [address] [place] [address] PCP - [place] [employer] 07/15/24 ThursdayToya LPN [address] [place] [address] Licensed Practical Nurse Family Medicine 01/19/24 10/21/24 Claribel Scott RN [address] [place] [address] Licensed Practical Nurse Family Medicine 10/21/24 12/06/24 Jess Marsh LPN [address] [facility] [address] [place] [address] 12/06/24 Esthela Tesfaye, KIRA [address] [place] [address] [facility] 02/03/25 documented as of this encounter
--- OUTSIDE RECORDS SUMMARY | 2025-03-28 09:15 | XMS_ITS | Encounter Summary ---
Author Organization [facility] Address [address] [facility] [place] [address] Care Team Providers Care Lead Retail Sales Associate Name Role Phone Shlomo Hu MD Primary Care Provider [phone] Jacob Sharp ARTERIAL EMBALMER Unavailable [phone] Thursday, Toya VEHICLE WASHER Unavailable [phone] Shlomo Hu MD Unavailable [phone] Shante Kumar REHAB THERAPIST-STAFF ELECTRONIC WARFARE OFFICER Unavailable Claribel Scott RN Unavailable Maximo Jess VEHICLE WASHER Unavailable Esthela Tesfaye SHOVELER Unavailable Encounter Details Date Type Department Care Team (Late st Contact Info) Description 11/19/2023 Abstract [facility] [address] [facility] 110 [place] [address] Shlomo Hu MD 112 [facility] 110 [place] [address] Social History Tobacco Use Types [...] week 03/01/2023 How often do you attend [facility] or l[facility]an services? Patient declined 03/01/2023 Do you belong [...] SH ENDOCRINOLOGY [address] [place] [address] Tanya Lozano MD [address] [place] [address] 04/20/2025 3:00 PM EDT Office Visit [facility] [address] [place] [address] Sonny Rodriguez, DPM 3006 [facility] [address] [place] [address] 05/04/2025 2:50 PM EDT Office Visit [facility] [address] [place] [address] Sonny Rodriguez DPM [address] [facility] [address] [place] [address] documented as of this encounter Visit Diagnoses Not on filedocumented in this encounter Additional Health Concerns Assessment Noted Time PHQ-9 Depression Total Score: 9 08/26/20 23 1:30 PM EST documented as of this encounter Care Teams Lead Retail Sales Associate Relationship Specialty Start Date End Date Shlomo Hu MD [address] [place] [address] PCP - General Internal Medicine 02/15/23 [place] [address] [place] [address] PCP - [place] [employer] 08/14/23 Shlomo Hu MD [address] [place] [address] PCP - [place] [employer] 05/15/2407/14 Shante Kumar REHAB THERAPIST-STAFF ELECTRONIC WARFARE OFFICER [address] [place] [address] PCP - Denzel Mckeon 07/15/24 ThursdayToya LPN [address] [place] [address] Licensed Practical Nurse Family Medicine 01/19/24 10/21/24 Claribel Scott, RN [address] [place] [address] Licensed Practical Nurse Family Medicine 10/21/24 12/06/24 Jess Marsh LPN [address] [facility] 110 [place] [address] 12/06/24 Esthela Tesfaye, KIRA [address] [place] [address] Agents' Records Clerk Family Medicine 02/03/25 documented as of this encounter
--- OUTSIDE RECORDS SUMMARY | 2025-03-28 09:16 | XMS_ITS | Encounter Summary ---
Author Organization [facility] Address [facility] [place] [address] Care Team Providers Care Mult Au Matic Operator Name Role Phone Jacob Sharp Unavailable Rasheeda Newton RD Unavailable [phone] Unavailable [phone] Fritz HENDERSON MD, Shlomo Momin Primary Care Provider [phone] Yuan Miller MD, PhD Unavailable [phone] Source Comments In the event this information is protected by the Federal Confidentiality of Alcohol and Drug AbusePatient Records regulations: The Federal rules restrict any use of the information to criminally investigate or prosecute any alcohol or drug abuse patient.[facility] Encounter Details Date Type Department Care Team (Late st Contact Info) Description 07/05/2024 Patient Msg Neurology [address] [place], [place] [id number] Provider, [facility] Ketamine Social History Tobacco Use Types Packs/Day Years Used Date Smoking Tobacco: Never Smokeless Tobacco: Never Alcohol Use Standard Drinks/Week Comments Not Currently 0 (1 standard drink = 0.6 oz pur e alcohol) [facility] Utilities Answer Date Recorded In the past 12 months has th e [employer], gas, oil, or water company threatened to [...] PHQ-2 Answer Date Recorded PHQ-2 score 6 06/23/2024 Hunger Vital Sign Answer Date Recorded Within [...] living in a usp (including now)? No 07/08/2024 Area Deprivation Index Answer Date Reagan rded National Score (1-100), lower number is lower ri sk 63 03/05/2023 State Score (1-10), lower number is lower risk 4 03/05/2023 Data from: https://www.neighborhoodatlas.medicine.[facility]/. Last address used for calculation [address] 03/05/2023 Comments [...] 11:00 AM EDT Office Visit General Surgery [address] [place] [address] Michael Mora PA-C [address] [place] [address] follow up- add on ok'd by Michael 04/07/2025 1:00 PM EDT [facility] [address] [place] [address] Agatha Kim PSYD [address] [place] [id number] 04/19/2025 11:00 AM EDT [facility] [address] [place] [address] Joann Loera APRN.CHAIR MENDER [address] [place] [address] Cognitive movement issues 04/21/2025 8:30 AM EDT [facility] Nutrition Therapy [address] [place] [address] Tiffany Banks, RD [address] [place] [address] f/u TF forula tolerance and hydration 05/29/2025 9:00 AM T [facility] Gastroenterology [address] [place] [address] Johanna Martinez MD [facility] [address] [place] [address] 3 month follow up 06/28/2025 10:00 AM EDT [facility] Neurology Pain [address] [place] [id number] [place] [address] [place] [id number] Follow up for pain documented as of this encounter Visit Diagnoses Not on filedocumented in this encounter Additional Health Concerns Infection Onset Date Last Indicated Resolved Time COVID-19 Rule-Out 07/29/2024 07/29/2024 07/29/2024 7:20 PM EST documented as of this encounter Care Teams Mult Au Matic Operator Relationship Specialty Start Date End Date Shlomo Hu II, MD [address] [place] [address] PCP - General Internal Medicine 10/06/23 Jacob Sharp [address] [facility] [place] [address] Referring 04/30/[address] [place] [phone] Registered Dietitian Nutrition 06/24/[address] [place] [address] Registered Dietitian Nutrition 08/27/23 Yuan Miller MD, PhD [address] [place] [address] Surgeon General Surgery 02/03/24 documented as of this encounter
--- OUTSIDE RECORDS SUMMARY | 2025-03-28 09:16 | XMS_ITS | Encounter Summary ---
Author Organization [facility] Address [address] [place] [address] Care Team Providers Care Curing Room Worker Name Role Phone Siobhan Sharpjusto Unavailable Rasheeda Newton RD Unavailable [phone] Unavailable [phone] Fritz HENDERSON MD, Shlomo Momin Primary Care Provider [phone] Yuan Miller MD, PhD Unavailable [phone] Source Comments In the event this information is protected by the Federal Confidentiality of Alcohol and Drug AbusePatient Records regulations: The Federal rules restrict any use of the information to criminally investigate or prosecute any alcohol or drug abuse patient.[facility] Encounter Details Date Type Department Care Team (Late st Contact Info) Description 07/05/2024 Patient Msg Pre Anesthesia [address] [place], [place] [phone] Gabby Fuentes APRN.BUS MATRON [address] [place] [address] PRE-OPERATIVE INSTRUCTIONS Social History Tobacco Use Types Packs/Day Years Used Date Smoking Tobacco: Never Smokeless Tobacco: Never Alcohol Use Standard Drinks/Week Comments Not Currently 0 (1 standard drink = 0.6 oz pur e alcohol) [facility] Utilities Answer Date Recorded In [...] time in the past 12 m [address] [place], were you homeless or living in a usp (including now)? No 07/08/2024 Area Deprivation Index Answer Date Reagan rded National Score (1-100), lower number is lower ri sk 63 03/05/2023 State Score (1-10), lower number is lower risk 4 03/05/2023 Data from: https://www.neighborhoodatlas.medicine.[facility]/. Last address used for calculation [address] [...] Author No 02/21/2024 2:13 PM EDT Chelle Connell, PIETRO * Do you have serious difficulty walking or climbing stairs? Answer Date of Assessment Author No 02/21/2024 2:13 PM EDT Chelle Connell, PIETRO * Do you have difficulty dressing or bathing? Answer Date of Assessment Author No 02/21/2024 2:13 PM EDT Chelle Connell, PIETRO * Because of a physical, mental, or [...] AM EDT Office Visit General Surgery [address] [place] [id number] Michael Mora PA-C [address] [place] [phone] follow up- add on ok'd by Michael 04/07/2025 1:00 PM EDT [facility] Neurological Jew [address] [place] [id number] Agahta Kim PSYD [address] [place] [phone] 04/19/2025 11:00 AM EDT [facility] Neurological Jew [address] [place] [phone] Joann Loera APRN.BUS MATRON [address] [place] [phone] Cognitive movement issues 04/21/2025 8:30 AM EDT [facility] Nutrition Therapy [address] [place] [phone] Tiffany Banks, RD [address] [place] [id number] f/u TF forula tolerance and hydration 05/29/2025 9:00 AM EDT [facility] Gastroenterology [address] [place] [phone] Johanna Martinez MD [facility] [address] [place], [place] [address] 3 month follow up 06/28/2025 10:00 AM EDT [facility] Neurology Pain [address] [place] [phone] [place] [address] [place] [phone] Follow up for pain documented as of this encounter Visit Diagnoses Not on filedocumented in this encounter Additional Health Concerns Infection Onset Date Last Indicated Resolved Time COVID-19 Rule-Out 07/29/2024 07/29/2024 07/29/2024 7:20 PM EST documented as of this encounter Care Teams Curing Room Worker Relationship Specialty Start Date End Date Shlomo Hu II, MD [address] [place] [address] PCP - General Internal Medicine 10/06/23 Jacob Sharp [address] [place] [id number] Referring 04/30/[address] [place] [phone] Registered Dietitian Nutrition 06/24/[address] [facility] [place] [phone] Registered Dietitian Nutrition 08/27/23 Yuan Miller MD, PhD [address] [place] [address] Surgeon General Surgery 02/03/24 documented as of this encounter
--- OUTSIDE RECORDS SUMMARY | 2025-03-28 09:16 | XMS_ITS | Encounter Summary ---
Author Organization [facility] Address [facility] [place] [address] Care Team Providers Care Manager Life Sciences Name Role Phone Sean Ruiz DO Primary Care Provider [phone] Jacob Sharp Unavailable Rasheeda Newton RD Unavailable [phone] Unavailable [phone] Fritz HENDERSON MD, Shlomo B Primary Care Provider [phone] Yuan Miller MD, PhD Unavailable [phone] Source Comments In the event this information is protected by the Federal Confidentiality of Alcohol and Drug AbusePatient Records regulations: The Federal rules restrict any use of the information to criminally investigate or prosecute any alcohol or drug abuse patient.[facility] Encounter Details Date Type Department Care Team (Late st Contact Info) Description 06/04/2023 Get Medical Advice Gastroenterology [address] [id number] Maged Persaud MD [address] [place] [address] Appointment Social History Tobacco Use Types Packs/Day [...] slept in a mcfp (including now)? No 09/18/2022 Area Deprivation Index Answer Date Reagan rded National Score (1-100), lower number is lower ri sk 63 03/05/2023 State Score (1-10), lower number is lower risk 4 03/05/2023 Data from: https://www.neighborhoodatlas.medicine.[facility]/. Last address used for calculation [address] [...] hearing? Answer Date of Assessment Author No 04/23/2023 1:28 PM EDT Manish Fish RN * Are you blind or do you have serious difficulty seeing, even when wearing glasses? Answer Date of Assessment Author No 04/23/2023 1:28 PM TRENAT Manish Fish RN * Do you have serious difficulty walking or climbing stairs? Answer Date of Assessment Author No 04/23/2023 1:28 PM EDT Manish Fish RN * Do you have difficulty dressing or bathing? Answer Date of Assessment Author No 04/23/2023 1:28 PM EDT Manish Fish RN * Because of a physical, mental, or emotional condition, do you have difficulty doing errands alone such as visiting a doctor's office or shopping? Answer Date of Assessment Author No 04/23/2023 1:28 PM EDT Manish Fish RN documented as of this encounter Mental Status * Because of a physical, mental, or emotional condition, do you have serious difficulty concentrating, remembering, or making decisions? Answer Entry Date Author No 04/23/2023 1:28 PM Manish Maynard RN documented in this encounter Plan of Treatment Upcoming Encounters Date Type Department Care Team (Latest Contact Info) Description 03/31/2025 11:00 AM EDT Office Visit General Surgery [address] [place] [phone] Michael Mora PA-C [address] [place] [address] follow up- add on ok'd by Michael 04/07/2025 1:00 PM EDT [facility] [address] [place] [address] Agatha Kim PSYD [address] [place] [phone] 04/19/2025 11:00 AM EDT [facility]rological [facility] [address] [place] [address] Joann Loera APRN.OFFSET PLATE MAKER [address] [place] [id number] Cognitive movement issues 04/21/2025 8:30 AM EDT [facility] Nutrition Therapy [address] [place] [phone] Tiffany [address] [place] [address] f/u TF forula tolerance and hydration 05/29/2025 9:00 AM EDT [facility] Gastroenterology [address] [place] [address] Johanna Martinez MD [facility] [address] [place], [place] [address] 3 month follow up 06/28/2025 10:00 AM EDT [facility] Neurology Pain [address] [place] [address] [place] [address] [place] [address] Follow up for pain documented as of [...] documented as of this encounter Care Teams Manager Life Sciences Relationship Specialty [place] [address] [place] [address] PCP - General Family Medicine 07/09/12 10/05/23 Shlomo Hu II, MD [address] [facility] [address] [place] [address] PCP - General Internal Medicine 10/06/23 Jacob Sharp [address] [place] [address] Referring 04/30/[address] [place] [phone] Registered Dietitian Nutrition 06/24/[address] [place] [address] Registered Dietitian Nutrition 08/27/23 Yuan Miller MD, PhD [facility] [place] [address] Surgeon General Surgery 02/03/24 documented as of this encounter
--- OUTSIDE RECORDS SUMMARY | 2025-03-28 09:16 | XMS_ITS | Encounter Summary ---
Author Organization [facility] Address [address] [facility] [place] [address] Care Team Providers Care Nurse Research Name Role Phone Shlomo Hu MD Primary Care Provider Jacob Sharp MANUFACTURING FINANCE MANAGER Unavailable [phone] Thursday, Toya HOSPICE CARE TRANSITIONS COORDINATOR Unavailable [phone] Shlomo Hu MD Unavailable [phone] Shante Kumar LIEUTENANT COLONEL-BANK MESSENGER Unavailable Claribel Scott RN Unavailable Maximo Jess HOSPICE CARE TRANSITIONS COORDINATOR Unavailable Eshtela Tesfaye PATTERNMAKER PRESSURE CAST Unavailable Encounter Details Date Type Department Care Team (Late st Contact Info) Description 12/31/2023 Abstract [facility] [address] [facility] 110 [place] [address] Shlomo Hu MD 112 [facility] 110 [place] [address] Social History Tobacco Use Types [...] attend [facility] or episcopal services? 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 Not on file Not on file documented as of this encounter Plan of Treatment Upcoming Encounters Date Type Department Care Team (Late st Contact Info) Description 04/12/2025 9:50 AM EDT Office Visit [facility] [address] [place] [address] Tanya Lozano MD [address] [place] [address] 04/20/2025 3:00 PM EDT Office Visit [facility] [address] [place] [address] Sonny Rodriguez DPM [address] [address] 05/04/2025 2:50 PM EDT Office Visit [facility] [address] [place] [address] Sonny Rodriguez DPM [address] [address] documented as of this encounter Visit Diagnoses Not on filedocumented in this encounter Additional Health Concerns Assessment Noted Time PHQ-9 Depression Total Score: 9 08/26/20 23 1:30 PM EST documented as of this encounter Care Teams Nurse Research Relationship Specialty Start Date End Date Shlomo Hu MD [address] [place] [address] PCP - General Internal Medicine 02/15/23 [place] [address] [place] [address] PCP - Denzel Mckeon 08/14/23 Shlomo Hu MD [address] [place] [address] PCP - [place] [employer] 05/15/2407/14 Shante Kumar, LIEUTENANT COLONEL-BANK MESSENGER [address] [place] [address] PCP - [place] [employer] 07/15/24 ThursdayToya LPN [address] [place] [address] Licensed Practical Nurse Family Medicine 01/19/24 10/21/24 Claribel Scott, RN [address] [place] [address] Licensed Practical Nurse Family Medicine 10/21/24 12/06/24 Jess Marsh LPN [address] [facility] 110 [place] [address] 12/06/24 Esthela Tesfaye, KIRA [address] [place] [address] [facility] 02/03/25 documented as of this encounter
--- OUTSIDE RECORDS SUMMARY | 2025-03-28 09:16 | XMS_ITS | Encounter Summary ---
Author Organization [facility] Address [facility] [place] [address] Care Team Providers Care Pharmacy Aide Name Role Phone Sean Ruiz DO Primary Care Provider [phone] Jacob Sharp Unavailable Rasheeda Newton RD Unavailable [phone] Unavailable [phone] Fritz HENDERSON MD, Shlomo Momin Primary Care Provider [phone] Yuan Miller MD, PhD Unavailable [phone] Source Comments In the event this information is protected by the Federal Confidentiality of Alcohol and Drug AbusePatient Records regulations: The Federal rules restrict any use of the information to criminally investigate or prosecute any alcohol or drug abuse patient.[facility] Encounter Details Date Type Department Care Team (Late st Contact Info) Description 05/12/2023 Patient Msg General Surgery [address] [place] [address] Provider, [facility]cf colonoscopy Social History Tobacco Use Types Packs/Day Years [...] slept in a usp (including now)? No 09/18/2022 Area Deprivation Index Answer Date Reagan rded National Score (1-100), lower number is lower ri sk 63 03/05/2023 State Score (1-10), lower number is lower risk 4 03/05/2023 Data from: https://www.neighborhoodatlas.medicine.[facility].edu/. Last address used for calculation [address] [...] Entry Date Author No 04/23/2023 1:28 PM EDT Manish Fish RN documented in this encounter Plan of Treatment Upcoming Encounters Date Type Department Care Team (Latest Contact Info) Description 03/31/2025 11:00 AM EDT Office Visit General Surgery [address] [phone] Michael Mora PA-C [address] [place] [address] follow up- add on ok'd by Michael 04/07/2025 1:00 PM EDT [facility] [address] [place] [address] Agatha Kim PSYD [address] [place] [phone] 04/19/2025 11:00 AM EDT [facility] Neurological Congregational [address] [phone] Joann Loera APRN.LINOTYPE WORKER [address]00 [place] [address] Cognitive movement issues 04/21/2025 8:30 AM EDT [facility] Nutrition Therapy [address] [phone] Tiffany Banks, RD [address] [place] [id number] f/u TF forula tolerance and hydration 05/29/2025 9:00 AM EDT [facility] Gastroenterology [address] [phone] Johanna Martinez MD [facility] [address] [place], [place] [phone] 3 month follow up 06/28/2025 10:00 AM EDT [facility] Neurology Pain [address] [phone] [place] [address] [address] [id number] Follow up for pain documented as of [...] documented as of this encounter Care Teams Pharmacy Aide Relationship Specialty [place] [address] [place] [address] PCP - General Family Medicine 07/09/12 10/05/23 Shlomo Hu II, MD [address] [place] [address] PCP - General Internal Medicine 10/06/23 Jacob Sharp [address] [place] [address] Referring 04/30/[address] [place] [address] Registered Dietitian Nutrition 06/24/[address] [facility] [place] [address] Registered Dietitian Nutrition 08/27/23 Yuan Miller MD, PhD [address] [place] [address] Surgeon General Surgery 02/03/24 documented as of this encounter
--- OUTSIDE RECORDS SUMMARY | 2025-03-28 09:16 | XMS_ITS | Encounter Summary ---
Author Organization [facility] Address [address] [place] [address] Care Team Providers Care Rn First Assistant Name Role Phone Siobhan Sharpjusto Unavailable Rasheeda Newton RD Unavailable [phone] Unavailable [phone] Fritz HENDERSON MD, Shlomo Momin Primary Care Provider [phone] Yuan Miller MD, PhD Unavailable [phone] Source Comments In the event this information is protected by the Federal Confidentiality of Alcohol and Drug AbusePatient Records regulations: The Federal rules restrict any use of the information to criminally investigate or prosecute any alcohol or drug abuse patient.[facility] Encounter Details Date Type Department Care Team (Late st Contact Info) Description 07/05/2024 Get Medical Advice Neurology OT Outpatient [facility] [address] [place] [address] Susan Beach, OT/L [address] [place] [address] Transfer of care Social History Tobacco Use Types Packs/Day Years Used Date Smoking Tobacco: Never Smokeless Tobacco: Never Alcohol Use Standard Drinks/Week Comments Not Currently 0 (1 standard drink = 0.6 oz pur e alcohol) [facility] Utilities Answer Date Recorded In [...] living in a long-term (including now)? No 07/08/2024 Area Deprivation Index Answer Date Reagan rded National Score (1-100), lower number is lower ri sk 63 03/05/2023 State Score (1-10), lower number is lower risk 4 03/05/2023 Data from: https://www.neighborhoodatlas.[facility]/. Last address used for calculation [...] Author No 01/18/2024 3:36 PM EDT Kenny Rodriguez, PIETRO documented as of this encounter Mental Status [...] AM EDT Office Visit General Surgery [address] [phone] Michael Mora PA-C [address] [place] [phone] follow up- add on ok'd by Michael 04/07/2025 1:00 PM EDT [facility] Neurological Anabaptism [address] [place] [address] [phone] Agatha Kim PSYD [address] [place] [phone] 04/19/2025 11:00 AM EDT [facility] Neurological Anabaptism [address] [phone] Joann Leora APRN.RESIDENT SERVICES DIRECTOR [address] [phone] Cognitive movement issues 04/21/2025 8:30 AM EDT [facility] Nutrition Therapy [address] [phone] Tiffany Banks, RD [address] [place] [phone] f/u TF forula tolerance and hydration 05/29/2025 9:00 AM EDT [facility] Gastroenterology [address] [phone] Johanna Martinez MD [facility] [address] [place] [address] 3 month follow up 06/28/2025 10:00 AM EDT [facility] Neurology Pain [address] [phone] [place] [address] [address] [phone] Follow up for pain documented as of this encounter Visit Diagnoses Not on filedocumented in this encounter Additional Health Concerns Infection Onset Date Last Indicated Resolved Time COVID-19 Rule-Out 07/29/2024 07/29/2024 07/29/2024 7:20 PM EST documented as of this encounter Care Teams Rn First Assistant Relationship Specialty Start Date End Date Shlomo Hu II, MD [address] [place] [address] PCP - General Internal Medicine 10/06/23 Jacob Sharp [address] [address] [phone] Referring 04/30/[address] [place] [phone] Registered Dietitian Nutrition 06/24/[address] [phone] Registered Dietitian Nutrition 08/27/23 Yuan Miller MD, PhD [address] [place] [address] Surgeon General Surgery 02/03/24 documented as of this encounter
--- OUTSIDE RECORDS SUMMARY | 2025-03-28 09:16 | XMS_ITS | Encounter Summary ---
Author Organization [facility] Address [address] [place] [address] Care Team Providers Care Distribution Associate Name Role Phone Jacob Sharp Unavailable Rasheeda Newton RD Unavailable [phone] Unavailable [phone] Fritz HENDERSON MD, Shlomo Momin Primary Care Provider [phone] Yuan Miller MD, PhD Unavailable [phone] Source Comments In the event this information is protected by the Federal Confidentiality of Alcohol and Drug AbusePatient Records regulations: The Federal rules restrict any use of the information to criminally investigate or prosecute any alcohol or drug abuse patient.[facility] Encounter Details Date Type Department Care Team (Late st Contact Info) Description 07/07/2024 Patient Msg Neurology [address] [place], [place] [phone] Provider, [facility]cf [employer] and ketamine Social History Tobacco Use Types Packs/Day Years Used Date Smoking Tobacco: Never Smokeless Tobacco: Never Alcohol Use Standard Drinks/Week Comments Not Currently 0 (1 standard drink = 0.6 oz pur e alcohol) [facility] Utilities Answer Date Recorded In the [...] living in a fci (including now)? No 07/08/2024 Area Deprivation Index Answer Date Reagan rded National Score (1-100), lower number is lower ri sk 63 03/05/2023 State Score (1-10), lower number is lower risk 4 03/05/2023 Data from: https://www.neighborhoodatlas.[facility]/. Last address used for calculation [address] [...] AM EDT Office Visit General Surgery [address] [place] [address] Michael Mora PA-C [address] [place] [address] follow up- add on ok'd by Michael 04/07/2025 1:00 PM EDT [facility] Neurological Pentecostal [address] [place] [address] Agatha Kim PSYD [address] [phone] 04/19/2025 11:00 AM EDT [facility] Neurological Pentecostal [address] [phone] Joann Loera APRN.INTERNATIONAL BROADCAST MUSIC LIBRARIAN [address] [phone] Cognitive movement issues 04/21/2025 8:30 AM T [facility] Nutrition Therapy [address] [place] [address] Tiffany Banks, DIONNE [address] [place] [address] f/u TF forula tolerance and hydration 05/29/2025 9:00 AM [facility] Gastroenterology [address] [place] [address] Johanna Martinez MD [facility] [address] [place] [address] 3 month follow up 06/28/2025 10:00 AM [facility] Neurology Pain [address] [phone] [place] [address] [address] 1955595 Follow up for pain documented as of this encounter Visit Diagnoses Not on filedocumented in this encounter Additional Health Concerns Infection Onset Date Last Indicated Resolved Time COVID-19 Rule-Out 07/29/2024 07/29/2024 07/29/2024 7:20 PM EST documented as of this encounter Care Teams Distribution Associate Relationship Specialty Start Date End Date Shlomo Hu II, MD [address] [place] [address] PCP - General Internal Medicine 10/06/23 Jacob Sharp [address] [place] [address] Referring 04/30/[address] [place] [address] Registered Dietitian Nutrition 06/24/[address] [phone] Registered Dietitian Nutrition 08/27/23 Yuan Miller MD, PhD [address]00 [place] [address] Surgeon General Surgery 02/03/24 documented as of this encounter
--- OUTSIDE RECORDS SUMMARY | 2025-03-28 09:16 | XMS_ITS | Encounter Summary ---
Author Organization [facility] Address [address] [place] [address] Care Team Providers Care Auxiliary Equipment Operator Name Role Phone Sean Ruiz DO Primary Care Provider [phone] Jacob Sharp Unavailable Rasheeda Newton RD Unavailable [phone] Unavailable [phone] Fritz HENDERSON MD, Shlomo Momin Primary Care Provider [phone] Yuan Miller MD, PhD Unavailable [phone] Source Comments In the event this information is protected by the Federal Confidentiality of Alcohol and Drug AbusePatient Records regulations: The Federal rules restrict any use of the information to criminally investigate or prosecute any alcohol or drug abuse patient.[facility] Encounter Details Date Type Department Care Team (Late st Contact Info) Description 06/10/2023 Patient Msg Gastroenterology [address] [phone] Provider, Ccf Nutrition Introduction Social History Tobacco Use Types Packs/Day Years [...] is lower risk 4 03/05/2023 Data from: https://www.neighborhoodatlas.medicine.[facility].edu/. Last address used for calculation [...] AM EDT Office Visit General Surgery 9[address] [place] [address] Michael Mora PA-C [address]00 [place] [address] follow up- add on ok'd by Michael 04/07/2025 1:00 PM EDT [facility]ae[facility] [address] [address] [phone] Agatha Kim PSYD [address] [address] [phone] 04/19/2025 11:00 AM EDT [facility] Neurological Mandaeism [address] [phone] Joann Loera APRN.PROFESSOR OF SPORT MANAGEMENT [address] [place] [address] Cognitive movement issues 04/21/2025 8:30 AM EDT [facility] Nutrition Therapy [address] [phone] Tiffany Banks, RD [address] [place] [phone] f/u TF forula tolerance and hydration 05/29/2025 9:00 AM EDT [facility] Gastroenterology [address] [phone] Johanna Martinez MD [facility] [address] [place], [place] [phone] 3 month follow up 06/28/2025 10:00 AM EDT [facility] Neurology Pain [address] [address] [phone] [place] [address] [place] [address] Follow up for pain documented as of [...] documented as of this encounter Care Teams Auxiliary Equipment Operator Relationship Specialty [place] [address] [place] [address] PCP - General Family Medicine 07/09/12 10/05/23 Shlomo Hu II, MD [address] [place] [address] PCP - General Internal Medicine 10/06/23 Jacob Sharp [address] [place] [address] Referring 04/30/[address] [place] [address] Registered Dietitian Nutrition 06/24/[address] [place] [address] Registered Dietitian Nutrition 08/27/23 Yuan Miller MD, PhD [address] [place] [address] Surgeon General Surgery 02/03/24 documented as of this encounter
--- OUTSIDE RECORDS SUMMARY | 2025-03-28 09:16 | XMS_ITS | Encounter Summary ---
Author Organization [facility] Address [address] [place] [address] Care Team Providers Care Cooker Chip Name Role Phone Jacob Sharp Unavailable Rasheeda Newton RD Unavailable [phone] Unavailable [phone] Fritz HENDERSON MD, Shlomo Momin Primary Care Provider [phone] Yuan Miller MD, PhD Unavailable [phone] Source Comments In the event this information is protected by the Federal Confidentiality of Alcohol and Drug AbusePatient Records regulations: The Federal rules restrict any use of the information to criminally investigate or prosecute any alcohol or drug abuse patient.[facility] Encounter Details Date Type Department Care Team (Late st Contact Info) Description 07/04/2024 Patient Msg Neurology [address] [place], [place] [phone] Provider, Ccf Ketamine Social History Tobacco Use Types Packs/Day Years Used Date Smoking Tobacco: Never Smokeless Tobacco: Never Alcohol Use Standard Drinks/Week Comments Not Currently 0 (1 standard drink = 0.6 oz pur e alcohol) [facility] Utilities Answer Date Recorded In the past 12 months has th e [employer], gas, oil, or water company threatened to [...] any time in the past 12 m [facility], were you homeless or living in a group home (including now)? No 07/08/2024 Area Deprivation Index Answer Date Reagan rded National Score (1-100), lower number is lower ri sk 63 03/05/2023 State Score (1-10), lower number is lower risk 4 03/05/2023 Data from: https://www.neighborhoodatlas.medicine.[facility]/. Last address used for calculation [address] [...] 11:00 AM EDT Office Visit General Surgery [address] [place] [address] Michael Mora PA-C [address] [place] [address] follow up- add on ok'd by Michael 04/07/2025 1:00 PM EDT [facility] Neurological Confucianist [address] [place] [address] Agatha Kim PSYD [address] [place] [phone] 04/19/2025 11:00 AM EDT [facility] Neurological Confucianist [address] [place] [address] Joann Loera APRN.HAUL CANE BRAKEMAN [address] [place] [address] Cognitive movement issues 04/21/2025 8:30 AM EDT [facility] Nutrition Therapy [address] [place] [address] Tiffany Banks, RD [address] [place] [address] f/u TF forula tolerance and hydration 05/29/2025 9:00 AM T [facility] Gastroenterology [address] [place] [address] Johanna Martinez MD [facility] [address] [place] [address] 3 month follow up 06/28/2025 10:00 AM EDT [facility] Neurology Pain [address] [place] [phone] [place] [address] [place] [phone] Follow up for pain documented as of this encounter Visit Diagnoses Not on filedocumented in this encounter Additional Health Concerns Infection Onset Date Last Indicated Resolved Time COVID-19 Rule-Out 07/29/2024 07/29/2024 07/29/2024 7:20 PM EST documented as of this encounter Care Teams Cooker Chip Relationship Specialty Start Date End Date Shlomo Hu II, MD [address] [place] [address] PCP - General Internal Medicine 10/06/23 Jacob Sharp [address] [facility] [place] [address] Referring 04/30/[address] [place] [phone] Registered Dietitian Nutrition 06/24/[address] [place] [address] Registered Dietitian Nutrition 08/27/23 Yuan Miller MD, PhD [address] [place] [address] Surgeon General Surgery 02/03/24 documented as of this encounter
--- OUTSIDE RECORDS SUMMARY | 2025-03-28 09:16 | XMS_ITS | Encounter Summary ---
Author Organization [facility] Address [address] [place] [address] Care Team Providers Care Regional Guide Name Role Phone Shlomo Hu MD Primary Care Provider Jacob Sharp LOCKER ATTENDANT Unavailable Thursday, Toya BRANCH EXAMINER Unavailable [phone] Shlomo Hu MD Unavailable [phone] Shante Kumar PRESS LOADER-CAUSE ANALYST Unavailable Claribel Scott RN Unavailable Jess Marsh BRANCH EXAMINER Unavailable Esthela Tesfaye SPECIAL EDUCATION CASE MANAGER Unavailable Encounter Details Date Type Department Care Team (Late st Contact Info) Description 11/20/2023 Clinisync Result Encounter [facility] Department Unsolicited Yanci Aguilar, [place] [address] [facility] [address] [place] [address] Social History Tobacco Use Types [...] How often do you attend [facility] or synagogue services? Patient declined 03/01/2023 Do you belong [...] Recorded Patient Health Questionnaire-2 Score 6 08/26/2023 [facility] of Occupat ional Health - Occupational Stress [...] Visit [facility] [address] [place] [address] Tanya Lozano MD [address] [place] [address] 04/20/2025 3:00 PM EDT Office Visit [facility] [address] [place] [id number] Sonny Rodriguez, DPM [address] [facility] 5 [place] [address] 05/04/2025 2:50 PM EDT Office Visit [facility] [address] [place] [address] Sonny Rodriguez, DPM [address]006 [facility] 5 [place] [address] documented as of this encounter Procedures Procedure Name Priority Date/Time Associated Diagnosis Comments US THYROID 11/20/2023 12:35 PM EST documented in this encounter Results * US thyroid (11/20/2023 12:35 PM EST) Anatomical Region Laterality Modality Head, Neck Ultrasound 11/20/2023 12:3 5 PM EST Narrative 11/20/2023 12:38 PM EST [address] [address] Ultrasound Report Signed Patient: MELINA TAVERAS MR#: [id number] : 1975 Acct:[id number] Age/Sex: 48 / F ADM Date: 11/20/23 Loc: US Attending Dr: YANCI AGUILAR Ordering Physician: YANCI AGUILAR Date of Service: 11/20/23 Procedure(s): US thyroid Accession Number(s): [id number] cc: SHLOMO HU ; YANCI AGUILAR [address] [address] Patient Name: MELINA TAVERAS MRN: [id number] date: 1975 Sex: F Assigned Patient Location: US Current Patient Location: RAD Accession/Order Number: [id number] Exam Date: 11/20/2023 10:10 Report Date: 11/20/2023 12:35 At the request of: YANCI AGUILAR Procedure: US thyroid EXAM: US thyroid HISTORY: History of thyroid mass with surgical removal. The patient has had right-sided neck pain for the past 2 weeks. COMPARISON: None. TECHNIQUE: Multiple sonographic images of the thyroid gland were obtained, supplemented with Doppler. FINDINGS: The right lobe measures 5.3 x 1.1 x 1.4 cm. Homogeneous echoes are noted throughout. Along the inferior aspect there is a solid hypoechoic nodule measuring 0.4 x 0.3 x 0.3 cm. No other nodule is identified in the right lobe. The left lobe measures 4.4 x 1.1 x 1.4 cm. All images echoes are noted throughout. There is no evidence of a focal nodule within. The isthmus measures 2 mm in thickness. There is no evidence of a focal mass or abnormal fluid collection surrounding the gland. US/US thyroid IMPRESSION: The right lobe of the thyroid gland is mildly enlarged. There is a nodule in the inferior aspect of the right lobe which is considered TI RADS 4. Biopsy is not recommended at this time. Comparison with a previous study may be helpful in determining the chronicity of these findings. Follow-up study as clinically indicated. Electronically authenticated by: IVIS YOUSIF Date: 11/20/2023 12:35 Dictated By: Ivis Yousif M.D. Signed By: 11/20/23 1238 DD/ 1235 TD/TT: Guidance Secretary: Procedure Note Radiology, Radiologist, MD - 11/20/2023 [place] [address] Ultrasound Report Signed Patient: MELINA TAVERAS LMR#: [id number] : 1975Acct:[id number] Age/Sex: 48 / FADM Date: 11/20/23 Loc: US Attending Dr: YANCI AGUILAR Ordering Physician: YANCI AGUILAR Date of Service: 11/20/23 Procedure(s): US thyroid Accession Number(s): [id number] cc: SHLOMO HU ; YANCI AGUILAR [address] [address] Patient Name: MELINA TAVERAS MRN: [facility]:[id number] date: 1975 Sex: F Assigned Patient Location: US Current Patient Location: RAD Accession/Order Number: [id number] Exam Date: 11/20/2023 10:10 Report Date: 11/20/2023 12:35 At the request of: YANCI AGUILAR Procedure: US thyroid EXAM: US thyroid HISTORY: History of thyroid mass with surgical removal. The patient hashad right-sided neck pain for the past 2 weeks. COMPARISON: None. TECHNIQUE: Multiple sonographic images of the thyroid gland were obtained, supplemented with Doppler. FINDINGS: The right lobe measures 5.3 x 1.1 x 1.4 cm. Homogeneous echoesare noted throughout. Along the inferior aspect there is a solid hypoechoicnodule measuring 0.4 x 0.3 x 0.3 cm. No other nodule is identified in the rightlobe. The left lobe measures 4.4 x 1.1 x 1.4 cm. All images echoes are noted throughout. There is no evidence of a focal nodule within. The isthmus measures 2 mm in thickness. There is no evidence of a focalmass or abnormal fluid collection surrounding the gland. US/US thyroid IMPRESSION: The right lobe of the thyroid gland is mildly enlarged. There is a nodulein the inferior aspect of the right lobe which is considered TI RADS 4. Biopsy is not recommended at this time. Comparison with a previous studymay be helpful in determining the chronicity of these findings. Follow-up studyas clinically indicated. Electronically authenticated by: IVIS YOUSIF Date: 11/20/2023 12:35 Dictated By: Ivis Yousif M.D. Signed By:11/20/23 1238 DD/ 1235 TD/TT: Guidance Secretary: us Yanci PORTER IMG US PROCEDURES Final Result documented in this encounter Visit Diagnoses Not on filedocumented in this encounter Additional Health Concerns Assessment Noted Time PHQ-9 Depression Total Score: 9 08/26/20 23 1:30 PM EST documented as of this encounter Care Teams Regional Guide Relationship Specialty Start Date End Date Shlomo Hu MD [address] [place] [address] PCP - General Internal Medicine 02/15/23 Jacob Sharp, FELICITA [address] [place] [address] PCP - [place] [employer] 08/14/23 Shlomo Hu MD [address] [facility] [address] [place] [address] PCP - [place] [employer] 05/15/2407/14 Shante Kumar, PRESS LOADER-CAUSE ANALYST [address] [facility] [address] [place] [address] PCP - [place] [employer] 07/15/24 ThursdayToya LPN [address] [place] [address] Licensed Practical Nurse Family Medicine 01/19/24 10/21/24 Claribel Scott, RN [address] [place] [address] Licensed Practical Nurse Family Medicine 10/21/24 12/06/24 Jess Marsh LPN [address] [facility] [address] [place] [address] 12/06/24 Esthela Tesfaye LSW [address] [place] [address] Resident In Diagnostic Radiology Family Medicine 02/03/25 documented as of this encounter
--- OUTSIDE RECORDS SUMMARY | 2025-03-28 09:16 | XMS_ITS | Encounter Summary ---
Author Organization [facility] Address [address] [place] [address] Care Team Providers Care Co Pilot Name Role Phone Jacob Sharp Unavailable Rasheeda Newton RD Unavailable [phone] Unavailable [phone] Fritz HENDERSON MD, Shlomo Momin Primary Care Provider [phone] Yuan Miller MD, PhD Unavailable [phone] Source Comments In the event this information is protected by the Federal Confidentiality of Alcohol and Drug AbusePatient Records regulations: The Federal rules restrict any use of the information to criminally investigate or prosecute any alcohol or drug abuse patient.[facility] Encounter Details Date Type Department Care Team (Late st Contact Info) Description 06/29/2024 Patient Msg Neurology [address] [place], [place] [id number] Provider, Ccf Ketamine instructions Social History Tobacco [...] in a prison (including now)? No 02/16/2024 Area Deprivation Index Answer Date Reagan rded National Score (1-100), lower number is lower ri sk 63 03/05/2023 State Score (1-10), lower number is lower risk 4 03/05/2023 Data from: https://www.neighborhoodatlas.medicine.[facility].edu/. Last address used for calculation [address] [...] AM EDT Office Visit General Surgery [address] [place] [address] Michael Mora PA-C [address] [place] [phone] follow up- add on ok'd by Michael 04/07/2025 1:00 PM EDT [facility] Neurological [place] [address] [place] [phone] Agatha Kim PSYD [address] [place] [phone] 04/19/2025 11:00 AM EDT [facility] Neurological [place] [address] [phone] Joann Loera APRN.BUTTON SPINDLER [address] [place] [address] Cognitive movement issues 04/21/2025 8:30 AM T [facility] Nutrition Therapy [address] [place] [phone] [address] [place] [phone] f/u TF forula tolerance and hydration 05/29/2025 9:00 AM T [facility] Gastroenterology [address] [address] Johanna Martinez MD [facility] [address] [place], [place] [address] 3 month follow up 06/28/2025 10:00 AM [facility] Neurology Pain [address] [place] [phone] [place] [address] [place] [address] Follow up for pain documented as of this encounter Visit Diagnoses Not on filedocumented in this encounter Additional Health Concerns Infection Onset Date Last Indicated Resolved Time COVID-19 Rule-Out 07/29/2024 07/29/2024 07/29/2024 7:20 PM EST documented as of this encounter Care Teams Co Pilot Relationship Specialty Start Date End Date Shlomo Hu II, MD [address] [facility] [address] [place] [address] PCP - General Internal Medicine 10/06/23 Jacob Sharp [address] [facility] [place] [address] Referring 04/30/[address] [place] [id number] Registered Dietitian Nutrition 06/24/[address] [place] [phone] Registered Dietitian Nutrition 08/27/23 Yuan Miller MD, PhD [facility] [place] [phone] Surgeon General Surgery 02/03/24 documented as of this encounter
--- OUTSIDE RECORDS SUMMARY | 2025-03-28 09:16 | XMS_ITS | Encounter Summary ---
Author Organization [facility] Address [address] [place] [address] Care Team Providers Care Can Top Setter Name Role Phone Jacob Sharp Unavailable Rasheeda Newton RD Unavailable [phone] Unavailable [phone] Fritz HENDERSON MD, Shlomo Momin Primary Care Provider [phone] Yuan Miller MD, PhD Unavailable [phone] Source Comments In the event this information is protected by the Federal Confidentiality of Alcohol and Drug AbusePatient Records regulations: The Federal rules restrict any use of the information to criminally investigate or prosecute any alcohol or drug abuse patient.[facility] Encounter Details Date Type Department Care Team (Late st Contact Info) Description 07/20/2024 Get Medical Advice General Surgery [address] [place] [address] Yuan Miller MD, PhD [address] [place] [address] Feeding tube pain Social History Tobacco Use Types Packs/Day Years Used Date Smoking Tobacco: Never Smokeless Tobacco: Never Alcohol Use Standard Drinks/Week Comments Not Currently 0 (1 standard drink = 0.6 oz pur e alcohol) [facility] Utilities Answer Date Recorded In the [...] the past [address] [facility], were you homeless or living in a senior living (including now)? No 07/08/2024 Area Deprivation Index Answer Date Reagan rded National Score (1-100), lower number is lower ri sk 63 03/05/2023 State Score (1-10), lower number is lower risk 4 03/05/2023 Data from: https://www.neighborhoodatlas.medicine.[facility]/. Last address used for calculation [address] 03/05/2023 Comments No [...] Entry Date Author No 07/10/2024 3:08 PM EDLubna Sidhu RN documented in this encounter Plan of Treatment Upcoming Encounters Date Type Department Care Team (Latest Contact Info) Description 03/31/2025 11:00 AM EDT Office Visit General Surgery [address] [place] [id number] Michael Mora PA-C [address] [place] [phone] follow up- add on ok'd by Michael 04/07/2025 1:00 PM EDT [facility] Neurological [place] [address] [place] [phone] Agatha Kim PSYD [address] [place] [phone] 04/19/2025 11:00 AM EDT [facility] Neurological [place] [address] [address] [phone] Joann Loera APRN.SHIFT SUPERVISOR [address] [place] [id number] Cognitive movement issues 04/21/2025 8:30 AM EDT [facility] Nutrition Therapy [address] [place] [phone] Tiffany Banks, RD [address] [place] [phone] f/u TF forula tolerance and hydration 05/29/2025 9:00 AM EDT [facility] Gastroenterology [address] [place] [phone] Johanna Martinez MD [facility] [address] [place] [address] 3 month follow up 06/28/2025 10:00 AM EDT [facility] Neurology Pain [address] [place] [phone] [place] [address] [place] [phone] Follow up for pain documented as of this encounter Visit Diagnoses Not on filedocumented in this encounter Additional Health Concerns Infection Onset Date Last Indicated Resolved Time COVID-19 Rule-Out 07/29/2024 07/29/2024 07/29/2024 7:20 PM EST documented as of this encounter Care Teams Can Top Setter Relationship Specialty Start Date End Date Shlomo Hu II, MD [address] [facility] [address] [place] [address] PCP - General Internal Medicine 10/06/23 Jacob Sharp [address] [place] [phone] Referring 04/30/[address] [place] [phone] Registered Dietitian Nutrition 06/24/[address] [facility] [place] [phone] Registered Dietitian Nutrition 08/27/23 Yuan Miller MD, PhD [address] [place] [address] Surgeon General Surgery 02/03/24 documented as of this encounter
--- OUTSIDE RECORDS SUMMARY | 2025-03-28 09:16 | XMS_ITS | Encounter Summary ---
Author Organization [facility] Address [address] [place] [address] Care Team Providers Care Electric Meter Tester Name Role Phone Sean Ruiz DO Primary Care Provider [phone] Jacob Sharp Unavailable Rasheeda Newton RD Unavailable [phone] Unavailable [phone] Fritz HENDERSON MD, Shlomo B Primary Care Provider [phone] Yuan Miller MD, PhD Unavailable [phone] Source Comments In the event this information is protected by the Federal Confidentiality of Alcohol and Drug AbusePatient Records regulations: The Federal rules restrict any use of the information to criminally investigate or prosecute any alcohol or drug abuse patient.[facility] Encounter Details Date Type Department Care Team (Late st Contact Info) Description 05/08/2023 Patient Msg Pain Management [address] [place], [place] [phone] Johann Echeverria MD [address] [place], [place] [phone] Request an Appointment Social History Tobacco Use [...] slept in a fdc (including now)? No 09/18/2022 Area Deprivation Index Answer Date Reagan rded National Score (1-100), lower number is lower ri sk 63 03/05/2023 State Score (1-10), lower number is lower risk 4 03/05/2023 Data from: https://www.neighborhoodatlas.medicine.[facility]/. Last address used for calculation [address] [place] [address] 03/05/2023 Comments No Sex and Gender Information [...] Entry Date Author No 04/23/2023 1:28 PM aMnish Maynard RN documented in this encounter Plan of Treatment Upcoming Encounters Date Type Department Care Team (Latest Contact Info) Description 03/31/2025 11:00 AM EDT Office Visit General Surgery [address] [place] [address] Michael Mora PA-C [address] [place] [address] follow up- add on ok'd by Michael 04/07/2025 1:00 PM EDT [facility]rological [facility] [facility] [address] [place] [id number] Agatha Kim PSYD [address] [place] [phone] 04/19/2025 11:00 AM EDT [facility] Neurological [place] [address] [place] [address] Joann Loera APRN.STORE ASSISTANT [address] [place] [address] Cognitive movement issues 04/21/2025 8:30 AM EDT [facility] Nutrition Therapy [address] [place] [phone] Tiffany Banks, RD [address] [place] [phone] f/u TF forula tolerance and hydration 05/29/2025 9:00 AM EDT [facility] Gastroenterology [address] [place] [phone] Johanna Martinez MD [facility] [address] [place], [place] [phone] 3 month follow up 06/28/2025 10:00 AM EDT [facility] Neurology Pain [address] [place] [phone] [place] [address] [place] [address] Follow up for pain documented as of [...] as of this encounter Care Teams Electric Meter Tester Relationship Specialty [place] [address] [place] [address] PCP - General Family Medicine 07/09/12 10/05/23 Shlomo Hu II, MD [address] [address] PCP - General Internal Medicine 10/06/23 Jacob Sharp [address] [place] [address] Referring 04/30/[address] [place] [address] Registered Dietitian Nutrition 06/24/[address] [facility] [place] [address] Registered Dietitian Nutrition 08/27/23 Yuan Miller MD, PhD [address] [place] [address] Surgeon General Surgery 02/03/24 documented as of this encounter
--- OUTSIDE RECORDS SUMMARY | 2025-03-28 09:16 | XMS_ITS | Encounter Summary ---
Author Organization [facility] Address [address] [place] [address] Care Team Providers Care Cardroom Worker Name Role Phone Siobhan Sharpjusto Unavailable Rasheeda Newton RD Unavailable [phone] Unavailable [phone] Fritz HENDERSON MD, Shlomo Momin Primary Care Provider [phone] Yuan Miller MD, PhD Unavailable [phone] Source Comments In the event this information is protected by the Federal Confidentiality of Alcohol and Drug AbusePatient Records regulations: The Federal rules restrict any use of the information to criminally investigate or prosecute any alcohol or drug abuse patient.[facility] Encounter Details Date Type Department Care Team (Late st Contact Info) Description 07/04/2024 Patient Msg Neurology [address] [place], [place] [phone] Provider, Ccf Ketamine infusions Social History Tobacco Use Types Packs/Day Years Used Date Smoking Tobacco: Never Smokeless Tobacco: Never Alcohol Use Standard Drinks/Week Comments Not Currently 0 (1 standard drink = 0.6 oz pur e alcohol) [facility] Utilities Answer Date Recorded In the past 12 months has th e [employer], gas, oil, or water company threatened to [...] in the past 12 m [facility], were you homeless or living in a group home (including now)? No 07/08/2024 Area Deprivation Index Answer Date Reagan rded National Score (1-100), lower number is lower ri sk 63 03/05/2023 State Score (1-10), lower number is lower risk 4 03/05/2023 Data from: https://www.neighborhoodatlas.medicine.[facility]/. Last address used for calculation [address] [...] AM EDT Office Visit General Surgery [address] [place] [address] Michael Mora PA-C [address]00 [place] [address] follow up- add on ok'd by Michael 04/07/2025 1:00 PM EDT [facility] Neurological Faith [address] [place] [address] Agatha Kim PSYD [address] [place] [phone] 04/19/2025 11:00 AM EDT [facility] Neurological Faith [address] [place] [address] Joann Loera APRN.CNP [address] [place] [address] Cognitive movement issues 04/21/2025 8:30 AM EDT [facility] Nutrition Therapy [address] [place] [address] Tiffany Banks, RD [address] [place] [address] f/u TF forula tolerance and hydration 05/29/2025 9:00 AM T [facility] Gastroenterology [address] [place] [address] Johanna Martinez MD [facility] [address] [place] [address] 3 month follow up 06/28/2025 10:00 AM T [facility] Neurology Pain [address] [place] [address] [place] [address] [place] [phone] Follow up for pain documented as of this encounter Visit Diagnoses Not on filedocumented in this encounter Additional Health Concerns Infection Onset Date Last Indicated Resolved Time COVID-19 Rule-Out 07/29/2024 07/29/2024 07/29/2024 7:20 PM EST documented as of this encounter Care Teams Cardroom Worker Relationship Specialty Start Date End Date Shlomo Hu II, MD [address] [place] [address] [place] [address] PCP - General Internal Medicine 10/06/23 Jacob Sharp [address] [facility] [place] [address] Referring 04/30/[address] [place] [address] Registered Dietitian Nutrition 06/24/[address] [place] [address] Registered Dietitian Nutrition 08/27/23 Yuan Miller MD, PhD [address] [place] [address] Surgeon General Surgery 02/03/24 documented as of this encounter
--- OUTSIDE RECORDS SUMMARY | 2025-03-28 09:16 | XMS_ITS | Encounter Summary ---
Author Organization [facility] Address [address] [place] [address] Care Team Providers Care Pollution Control Engineer Name Role Phone Siobhan Sharpjusto Unavailable Rasheeda Newton RD Unavailable [phone] Unavailable [phone] Fritz HENDERSON MD, Shlomo Momin Primary Care Provider [phone] Yuan Miller MD, PhD Unavailable [phone] Source Comments In the event this information is protected by the Federal Confidentiality of Alcohol and Drug AbusePatient Records regulations: The Federal rules restrict any use of the information to criminally investigate or prosecute any alcohol or drug abuse patient.[facility] Encounter Details Date Type Department Care Team (Late st Contact Info) Description 07/01/2024 Patient Msg General Surgery [address] [place], [place] [id number] Provider, Ccf Surgical Procedure Social History Tobacco Use Types Packs/Day Years [...] a senior care (including now)? No 02/16/2024 Area Deprivation Index Answer Date Reagan rded National Score (1-100), lower number is lower ri sk 63 03/05/2023 State Score (1-10), lower number is lower risk 4 03/05/2023 Data from: https://www.neighborhoodatlas.medicine.[facility].edu/. Last address used for calculation [...] AM EDT Office Visit General Surgery [address] [place] [address] Michael Mora PA-C [address] [place] [id number] follow up- add on ok'd by Michael 04/07/2025 1:00 PM EDT [facility] Neurological Mandaeism [address] [address] [phone] Agatha Kim PSYD [address] [phone] 04/19/2025 11:00 AM EDT [facility] Neurological Mandaeism [address] [phone] Joann Loera APRN.AUDITING CODER [address] [place] [address] Cognitive movement issues 04/21/2025 8:30 AM T [facility] Nutrition Therapy [address] [place] [phone] [address] [place] [id number] f/u TF forula tolerance and hydration 05/29/2025 9:00 AM T [facility] Gastroenterology [address] [address] Johanna Martinez MD [facility] [address] [place], [place] [address] 3 month follow up 06/28/2025 10:00 AM [facility] Neurology Pain [address] [place] [phone] [place] [address] [place] [address] Follow up for pain documented as of this encounter Visit Diagnoses Not on filedocumented in this encounter Additional Health Concerns Infection Onset Date Last Indicated Resolved Time COVID-19 Rule-Out 07/29/2024 07/29/2024 07/29/2024 7:20 PM EST documented as of this encounter Care Teams Pollution Control Engineer Relationship Specialty Start Date End Date Shlomo Hu II, MD [address] [facility] [address] [place] [address] PCP - General Internal Medicine 10/06/23 Jacob Sharp [address] [facility] [place], [place] 1279[address] Referring 04/30/[address] [place] [phone] Registered Dietitian Nutrition 06/24/[address] [place] [phone] Registered Dietitian Nutrition 08/27/23 Yuan Miller MD, PhD [facility] [place] [id number] Surgeon General Surgery 02/03/24 documented as of this encounter
--- OUTSIDE RECORDS SUMMARY | 2025-03-28 09:16 | XMS_ITS | Encounter Summary ---
Author Organization [facility] Address [address] [place] [address] Care Team Providers Care Education Department Chair Name Role Phone Jacob Sharp Unavailable Rasheeda Newton RD Unavailable [phone] Unavailable [phone] Fritz HENDERSON MD, Shlomo Momin Primary Care Provider [phone] Yuan Miller MD, PhD Unavailable [phone] Source Comments In the event this information is protected by the Federal Confidentiality of Alcohol and Drug AbusePatient Records regulations: The Federal rules restrict any use of the information to criminally investigate or prosecute any alcohol or drug abuse patient.[facility] Encounter Details Date Type Department Care Team (Late st Contact Info) Description 07/18/2024 Get Medical Advice Neurology Pain [address] [place], [place] [phone] [place] [address] [place] [address] Pain Social History Tobacco Use Types Packs/Day Years Used Date Smoking Tobacco: Never Smokeless Tobacco: Never Alcohol Use Standard Drinks/Week Comments Not Currently 0 (1 standard drink = 0.6 oz pur e alcohol) [facility] Utilities Answer Date Recorded In the [...] slept in a mcc (including now)? No 02/16/2024 Housing Stability Vital [...] living in a mcc (including now)? No 07/08/2024 Area Deprivation Index Answer Date Reagan rded National Score (1-100), lower number is lower ri sk 63 03/05/2023 State Score (1-10), lower number is lower risk 4 03/05/2023 Data from: https://www.neighborhoodatlas.medicine.[facility].edu/. Last address used for calculation [address] [...] Office Visit General Surgery [address] [place] [address] [phone] Michael Mora PA-C [address] [place] [address] [phone] follow up- add on ok'd by Michael 04/07/2025 1:00 PM EDT [facility] Neurological Yazdanism [address] [place] [address] [phone] Agatha Kim PSYD [address] [place] [address] 0344995 04/19/2025 11:00 AM EDT [facility] Neurological Yazdanism [address] [place] [address] Joann Loera APRN.[address] MAGISTRATE [address] [place] [phone] Cognitive movement issues 04/21/2025 8:30 AM EDT [facility] Nutrition Therapy [address] [place] [phone] Tiffany Banks, RD [address] [place] [address] f/u TF forula tolerance and hydration 05/29/2025 9:00 AM EDT [facility] Gastroenterology [address] [place] [phone] Johanna Martinez MD [facility] [address] [place], [place] 0[address] 3 month follow up 06/28/2025 10:00 AM EDT [facility] Neurology Pain [address] [place] 0344906 [place] [address] [place] [phone] Follow up for pain documented as of this encounter Visit Diagnoses Not on filedocumented in this encounter Additional Health Concerns Infection Onset Date Last Indicated Resolved Time COVID-19 Rule-Out 07/29/2024 07/29/2024 07/29/2024 7:20 PM EST documented as of this encounter Care Teams Education Department Chair Relationship Specialty Start Date End Date Shlomo Hu II, MD [address] [place] [address] [place] [address] PCP - General Internal Medicine 10/06/23 Jacob Sharp [address] [place] [phone] Referring 04/30/[address] [place] [phone] Registered Dietitian Nutrition 06/24/[address] [place] [phone] Registered Dietitian Nutrition 08/27/23 Yuan Miller MD, PhD [address] [place] [address] Surgeon General Surgery 02/03/24 documented as of this encounter
--- OUTSIDE RECORDS SUMMARY | 2025-03-28 09:16 | XMS_ITS | Encounter Summary ---
Author Organization [facility] Address [address] [place] [address] Care Team Providers Care Delphi Developer Name Role Phone Jacob Sharp Unavailable Rasheeda Newton RD Unavailable [phone] Unavailable [phone] Fritz HENDERSON MD, Shlomo Momin Primary Care Provider [phone] Yuan Miller MD, PhD Unavailable [phone] Source Comments In the event this information is protected by the Federal Confidentiality of Alcohol and Drug AbusePatient Records regulations: The Federal rules restrict any use of the information to criminally investigate or prosecute any alcohol or drug abuse patient.[facility] Encounter Details Date Type Department Care Team (Late st Contact Info) Description 06/30/2024 Patient Msg General Surgery [address] [place] [address] Michael Mora PA-C [address] [place] [address] Appointment Cancellation Request Social History Tobacco Use [...] in a residential (including now)? No 02/16/2024 Area Deprivation Index Answer Date Reagan rded National Score (1-100), lower number is lower ri sk 63 03/05/2023 State Score (1-10), lower number is lower risk 4 03/05/2023 Data from: https://www.neighborhoodatlas.medicine.[facility].edu/. Last address used for calculation [address] [...] AM EDT Office Visit General Surgery [address] [place] [phone] Michael Mora PA-C [address] [place] [address] follow up- add on ok'd by Michael 04/07/2025 1:00 PM EDT [facility] Neurological Spiritism [address] [place] [address] Agatha Kim PSYD [address] [place] [address] 04/19/2025 11:00 AM EDT [facility] Neurological Spiritism [address] [place] [address] Joann Loera APRN.BROOM MAN [address] [place] [address] [phone] Cognitive movement issues 04/21/2025 8:30 AM EDT [facility] Nutrition Therapy [address] [place] [phone] Tiffany Banks RD [address] [place] [phone] f/u TF forula tolerance and hydration 05/29/2025 9:00 AM EDT [facility] Gastroenterology [address] [place] [phone] Johanna Martinez MD [facility] [address] [place], [place] [address] 3 month follow up 06/28/2025 10:00 AM T [facility] Neurology Pain [address] [place] [phone] [place] [address] [place] [phone] Follow up for pain documented as of this encounter Visit Diagnoses Not on filedocumented in this encounter Additional Health Concerns Infection Onset Date Last Indicated Resolved Time COVID-19 Rule-Out 07/29/2024 07/29/2024 07/29/2024 7:20 PM EST documented as of this encounter Care Teams Delphi Developer Relationship Specialty Start Date End Date Shlomo Hu II, MD [address] [place] [address] [place] [address] PCP - General Internal Medicine 10/06/23 Jacob Sharp [address] [place] [phone] Referring 04/30/[address], [place] [address] Registered Dietitian Nutrition 06/24/[address] [place] [address] Registered Dietitian Nutrition 08/27/23 Yuan Miller MD, PhD [address] [place] [address] Surgeon General Surgery 02/03/24 documented as of this encounter
--- OUTSIDE RECORDS SUMMARY | 2025-03-28 09:16 | XMS_ITS | Encounter Summary ---
Author Organization [facility] Address [address] [facility] [place] [address] Care Team Providers Care Outside Parts Sales Name Role Phone Shlomo Hu MD Primary Care Provider Jacob Sharp DIRECTOR TELEMETRY Unavailable Thursday, Toya DISTANCE EDUCATION FACULTY LIAISON Unavailable [phone] Shlomo Hu MD Unavailable [phone] Shante Kumar GASOLINE FINISHER-INSURANCE SALES EXECUTIVE Unavailable Claribel Scott RN Unavailable Maximo Jess DISTANCE EDUCATION FACULTY LIAISON Unavailable Esthela Tesfaye ANODE ADJUSTER Unavailable [phone] Encounter Details Date Type Department Care Team (Late st Contact Info) Description 11/05/2023 Abstract [facility] [address] [facility] 110 [place] [address] Shlomo Hu MD [address] [facility] 110 [place] [address] Social History Tobacco Use Types [...] week 03/01/2023 How often do you attend [facility] or amish services? Patient declined 03/01/2023 Do you belong to any clubs o r organizations such as mandaen groups, unions, fraternal or athletic groups, or [...] Recorded Patient Health Questionnaire-2 Score 6 08/26/2023 [facility] of Occupat ional Health - [...] SH ENDOCRINOLOGY [address] [place] [address] Tanya Lozano MD [address] [place] [address] 04/20/2025 3:00 PM EDT Office Visit [facility] [address] [place] [address] Sonny Rodriguez, DPM [address] [facility] 5 [place] [address] 05/04/2025 2:50 PM EDT Office Visit [facility] [address] [place] [address] Sonny Rodriguez DPM [address] [facility] 5 [place] [address] documented as of this encounter Visit Diagnoses Not on filedocumented in this encounter Additional Health Concerns Assessment Noted Time PHQ-9 Depression Total Score: 9 08/26/20 23 1:30 PM EST documented as of this encounter Care Teams Outside Parts Sales Relationship Specialty Start Date End Date Shlomo Hu MD [address] [place] [place] [address] PCP - General Internal Medicine 02/15/23 [place] [address] [place] [address] PCP - Gratz Commercial 08/14/23 Shlomo Hu MD [address] [place] [address] [place] [address] PCP - Gratz Commercial 05/15/2407/14 Shante Kumar GASOLINE FINISHER-INSURANCE SALES EXECUTIVE [address] [place] [address] PCP - Denzel Mckeon 07/15/24 ThursdayToya LPN [address] [place] [address] Licensed Practical Nurse Family Medicine 01/19/24 10/21/24 Claribel Scott, RN [address] [place] [address] Licensed Practical Nurse Family Medicine 10/21/24 12/06/24 Jess Marsh LPN [address] [facility] 110 [place] [address] 12/06/24 Esthela Tesfaye, KIRA [address] [place] [address] Silver Lap Machine Tender Family Medicine 02/03/25 documented as of this encounter
--- OUTSIDE RECORDS SUMMARY | 2025-03-28 09:16 | XMS_ITS | Encounter Summary ---
Author Organization [facility] Address [facility] [place] [address] Care Team Providers Care Infrastructure Administrator Name Role Phone Siobhan Sharpjusto Unavailable Rasheeda Newton RD Unavailable [phone] Unavailable [phone] Fritz HENDERSON MD, Shlomo Momin Primary Care Provider [phone] Yuan Miller MD, PhD Unavailable [phone] Source Comments In the event this information is protected by the Federal Confidentiality of Alcohol and Drug AbusePatient Records regulations: The Federal rules restrict any use of the information to criminally investigate or prosecute any alcohol or drug abuse patient.[facility] Encounter Details Date Type Department Care Team (Late st Contact Info) Description 05/18/2024 Patient Msg Neurology [address] [place], [place] [phone] Provider, Ccf Ketamine infusions Social History Tobacco [...] a long term (including now)? No 02/16/2024 Area Deprivation Index Answer Date Reagan rded National Score (1-100), lower number is lower ri sk 63 03/05/2023 State Score (1-10), lower number is lower risk 4 03/05/2023 Data from: https://www.neighborhoodatlas.medicine.[facility].edu/. Last address used for calculation [address] [...] AM EDT Office Visit General Surgery [address] [place] [address] Michael Mora PA-C [address] [place] [phone] follow up- add on ok'd by Michael 04/07/2025 1:00 PM EDT [facility] [address] [place] [phone] Agatha Kim PSYD [address] [place] 3432695 04/19/2025 11:00 AM EDT [facility] Neurological [facility] [address] [place] [phone] Joann Loera APRN.REHABILITATION CASEWORKER [address] [place] [address] Cognitive movement issues 04/21/2025 8:30 AM T [facility] Nutrition Therapy [address] [place] [phone] Tiffany Banks [address] [place] 3432695 f/u TF forula tolerance and hydration 05/29/2025 9:00 AM T [facility] Gastroenterology [address] [address] Johanna Martinez MD [facility] [address] [place], [place] [address] 3 month follow up 06/28/2025 10:00 AM [facility] Neurology Pain [address] [place] [phone] [place] [address] [place] [address] Follow up for pain documented as of this encounter Visit Diagnoses Not on filedocumented in this encounter Additional Health Concerns Infection Onset Date Last Indicated Resolved Time COVID-19 Rule-Out 07/29/2024 07/29/2024 07/29/2024 7:20 PM EST documented as of this encounter Care Teams Infrastructure Administrator Relationship Specialty Start Date End Date Shlomo Hu II, MD [address] [facility] 110 [place] [address] PCP - General Internal Medicine 10/06/23 Jacob Sharp [address] [facility] [place] [address] Referring 04/30/[address] [place] [phone] Registered Dietitian Nutrition 06/24/[address] [place] [phone] Registered Dietitian Nutrition 08/27/23 Yuan Miller MD, PhD [facility]0 [place] 1835395 Surgeon General Surgery 02/03/24 documented as of this encounter
--- OUTSIDE RECORDS SUMMARY | 2025-03-28 09:16 | XMS_ITS | Encounter Summary ---
Author Organization [facility] Address [address] [place] [address] Care Team Providers Care Legal Summer Intern Name Role Phone Shlomo Hu MD Primary Care Provider Jacob Sharp ORTHOPHOTO TECH/DRAFTSMAN Unavailable Thursday, Toya CAUSTIC MIXER Unavailable [phone] Shlomo Hu MD Unavailable [phone] Shante Kumar SENIOR TECHNICAL PROJECT MANAGER-SEWING MACHINE ADJUSTER Unavailable Claribel Scott RN Unavailable [phone] Maximo Jess CAUSTIC MIXER Unavailable Esthela Tesfaye GEOPHYSICS SCIENTIST Unavailable Encounter Details Date Type Department Care Team (Late st Contact Info) Description 11/03/2023 Abstract [facility] 112 [facility] 110 [place] [address] Shlomo Hu MD 112 [facility] 110 [place] [address] Social History Tobacco Use Types [...] week 03/01/2023 How often do you attend [facility] or mandaen services? Patient declined 03/01/2023 Do you belong to any clubs o r organizations such as adventism groups, unions, fraternal or athletic groups, or [...] Recorded Patient Health Questionnaire-2 Score 6 08/26/2023 [facility] of Occupat ional Health - Occupational [...] ENDOCRINOLOGY [address] [place] [address] Tanya Lozano MD [address] [place] [address] 04/20/2025 3:00 PM EDT Office Visit [facility] [address] [place] [address] Sonny Rodriguez, DPM 3[address] [facility] 5 [place] [address] 05/04/2025 2:50 PM EDT Office Visit [facility] [address] [place] [address] Sonny Rodriguez DPM 3006 [facility] 5 [place] [address] documented as of this encounter Visit Diagnoses Not on filedocumented in this encounter Additional Health Concerns Assessment Noted Time PHQ-9 Depression Total Score: 9 08/26/20 23 1:30 PM EST documented as of this encounter Care Teams Legal Summer Intern Relationship Specialty Start Date End Date Shlomo Hu MD [address] [place] [address] PCP - General Internal Medicine 02/15/23 [place] [address] [place] [address] PCP - Sullivan Commercial 08/14/23 Shlomo Hu MD [address] [place] [address] PCP - [place] Commercial 05/15/2407/14 Shante Kumar SENIOR TECHNICAL PROJECT MANAGER-SEWING MACHINE ADJUSTER [address] [place] [address] PCP - Denzel Mckeon 07/15/24 ThursdayToya LPN [address] [place] [address] Licensed Practical Nurse Family Medicine 01/19/24 10/21/24 Claribel Scott, RN [address] [place] [address] Licensed Practical Nurse Family Medicine 10/21/24 12/06/24 Jess Marsh LPN [address] [facility] 110 [place] [address] 12/06/24 Esthela Tesfaye, KIRA [address] [place] [address] Activated Sludge Operator Family Medicine 02/03/25 documented as of this encounter
--- OUTSIDE RECORDS SUMMARY | 2025-03-28 09:16 | XMS_ITS | Encounter Summary ---
Author Organization [facility] Address [address] [facility] [address] Care Team Providers Care Lead Manufacturing Engineer Name Role Phone Shlomo Hu MD Primary Care Provider Jacob Sharp DIVING FISHER Unavailable Thursday, Toya ENROUTE CONTROLLER Unavailable [phone] Shlomo Hu MD Unavailable [phone] Shante Kumar AIR BREAKER OPERATOR-DIRECTOR INSTRUMENTATION Unavailable Claribel Scott RN Unavailable Jess Marsh ENROUTE CONTROLLER Unavailable Esthela Tesfaye SPRING INSPECTOR Unavailable Encounter Details Date Type Department Care Team (Late st Contact Info) Description 11/03/2023 Orders Only [facility] [address] [place] [address] A, Unknown Practice [address] [place] [address] Social History Tobacco Use Types [...] How often do you attend chur or sikh services? Patient declined 03/01/2023 Do [...] Recorded Patient Health Questionnaire-2 Score 6 08/26/2023 [facility] of Occupat ional Health - Occupational Stress [...] Office Visit [facility] ENDOCRINOLOGY [address] [place] [address] Tanya Lozano MD [address] [place] [address] 04/20/2025 3:00 PM EDT Office Visit [facility] [address] [place] [address] Sonny Rodriguez, DPM 3006 [facility] [address] [place] [address] 05/04/2025 2:50 PM EDT Office Visit [facility] [address] [place] [address] Sonny Rodriguez DPM 3006 [facility] 5 [place] [address] documented as of this encounter Procedures Procedure Name Priority Date/Time Associated Diagnosis Comments SCANNED LABS Routine 11/02/2023 2:46 PM EST documented in this encounter Results * SCANNED LABS (11/02/2023 2:46 PM EST) us Unknown Practice A LAB CHG PERFORMABLES Final Re sult documented in this encounter Visit Diagnoses Not on filedocumented in this encounter Additional Health Concerns Assessment Noted Time PHQ-9 Depression Total Score: 9 08/26/20 23 1:30 PM EST documented as of this encounter Care Teams Lead Manufacturing Engineer Relationship Specialty Start Date End Date Shlomo Hu MD [address] [place] [address] PCP - General Internal Medicine 02/15/23 [place] [address] [place] [address] PCP - Tees Toh Commercial 08/14/23 Shlomo Hu MD [address] [place] [address] PCP - Tees Toh Commercial 05/15/2407/14 Shante Kumar, AIR BREAKER OPERATOR-DIRECTOR INSTRUMENTATION [address] [place] [address] PCP - Tees Toh Commercial 07/15/24 ThursdayToya LPN [address] [place] [address] Licensed Practical Nurse Family Medicine 01/19/24 10/21/24 Claribel Scott, PIETRO [address] [place] [address] Licensed Practical Nurse Family Medicine 10/21/24 12/06/24 Jess Marsh LPN [address] [facility] 110 [place] [address] 12/06/24 Esthela Tesfaye LSW [address] [place] [address] International Logistics Coordinator Family Medicine 02/03/25 documented as of this encounter
--- OUTSIDE RECORDS SUMMARY | 2025-03-28 09:16 | XMS_ITS | Encounter Summary ---
Author Organization [facility] Address [address] [place] [address] Care Team Providers Care Desk Officer Name Role Phone Jacob Sharp Unavailable Rasheeda Newton RD Unavailable [phone] Unavailable [phone] Fritz HENDERSON MD, Shlomo Momin Primary Care Provider [phone] Yuan Miller MD, PhD Unavailable [phone] Source Comments In the event this information is protected by the Federal Confidentiality of Alcohol and Drug AbusePatient Records regulations: The Federal rules restrict any use of the information to criminally investigate or prosecute any alcohol or drug abuse patient.[facility] Encounter Details Date Type Department Care Team (Late st Contact Info) Description 07/20/2024 Patient Msg General Surgery [address] [place] [address] Michael Mora PA-C [address] [place] [address] Appointment Cancellation Request Social History [...] slept in a half-way (including now)? No 02/16/2024 Housing Stability Vital [...] living in a half-way (including now)? No 07/08/2024 Area Deprivation Index Answer Date Reagan rded National Score (1-100), lower number is lower ri sk 63 03/05/2023 State Score (1-10), lower number is lower risk 4 03/05/2023 Data from: https://www.neighborhoodatlas.medicine.[facility]/. Last address used for calculation [address] [address] 03/05/2023 Comments No Sex and [...] Entry Date Author No 07/10/2024 3:08 PM EDT Lubna aGy RN documented in this encounter Plan of Treatment Upcoming Encounters Date Type Department Care Team (Latest Contact Info) Description 03/31/2025 11:00 AM EDT Office Visit General Surgery [address] [place] [address] Michael Mora PA-C [address] [place] [address] follow up- add on ok'd by Michael 04/07/2025 1:00 PM EDT [facility] Neurological Religion [address] [place] [address] Agatha Kim PSYD [address] [place] [address] 04/19/2025 11:00 AM EDT [facility] Neurological Religion [address] [place] [address] Joann Loera APRN.SHEET HANGER [address] [place] [address] Cognitive movement issues 04/21/2025 8:30 AM EDT [facility] Nutrition Therapy [address] [place] [address] [id number] Tiffany Banks, RD [address] [place] [address] f/u TF forula tolerance and hydration 05/29/2025 9:00 AM EDT [facility] Gastroenterology [address] [place] 1054106 Johanna Martinez MD [facility] [address] [place], [place] [id number] 3 month follow up 06/28/2025 10:00 AM EDT [facility] Neurology Pain [address] [place] [address] [place] [address] [place] [address] Follow up for pain documented as of this encounter Visit Diagnoses Not on filedocumented in this encounter Additional Health Concerns Infection Onset Date Last Indicated Resolved Time COVID-19 Rule-Out 07/29/2024 07/29/2024 07/29/2024 7:20 PM EST documented as of this encounter Care Teams Desk Officer Relationship Specialty Start Date End Date Shlomo Hu II, MD [address] [facility] 110 [place] [address] PCP - General Internal Medicine 10/06/23 Jacob Sharp [address] [place] [address] [id number] Referring 04/30/[address] [place] [id number] Registered Dietitian Nutrition 06/24/[address] [place] [address] Registered Dietitian Nutrition 08/27/23 Yuan Miller MD, PhD [address] [place] [address] Surgeon General Surgery 02/03/24 documented as of this encounter
--- OUTSIDE RECORDS SUMMARY | 2025-03-28 09:16 | XMS_ITS | Encounter Summary ---
Author Organization [facility] Address [address] [place] [address] Care Team Providers Care Quarter Lining Smoother Name Role Phone Sean Ruiz DO Primary Care Provider [phone] Jacob Sharp Unavailable Rasheeda Newton RD Unavailable [phone] Unavailable [phone] Fritz HENDERSON MD, Shlomo B Primary Care Provider [phone] Yuan Miller MD, PhD Unavailable [phone] Source Comments In the event this information is protected by the Federal Confidentiality of Alcohol and Drug AbusePatient Records regulations: The Federal rules restrict any use of the information to criminally investigate or prosecute any alcohol or drug abuse patient.[facility] Encounter Details Date Type Department Care Team (Late st Contact Info) Description 04/27/2023 Get Medical Advice Hematology/Oncology [address] [place] [address] Lacey Youssef, CASH SURRENDER CALCULATOR.HUMAN RESOURCE CONSULTANT [address] [place] [address] Blood work Social History Tobacco [...] Data from: https://www.neighborhoodatlas.[facility]/. Last address used for calculation [address] [address] 03/05/2023 Comments No Sex and Gender Information [...] AM EDT Office Visit General Surgery [address] [place] [address] Michael Mora PA-C [address] [place] [address] follow up- add on ok'd by Michael 04/07/2025 1:00 PM EDT [facility] [address] [place] [phone] Agatha Kim, DILAN [address] [place] [id number] 04/19/2025 11:00 AM EDT [facility] Neurological [facility] [address] [place] [phone] Joann Loera APRN.HUMAN RESOURCE CONSULTANT [address] [place] [phone] Cognitive movement issues 04/21/2025 8:30 AM EDT [facility] Nutrition Therapy [address] [place] [address] Tiffany Banks, RD [address] [place] [address] f/u TF forula tolerance and hydration 05/29/2025 9:00 AM EDT [facility] Gastroenterology [address] [place] [address] Johanna Martinez MD [facility] [address] [place] [address] 3 month follow up 06/28/2025 10:00 AM EDT [facility] Neurology Pain [address] [place] [address] [place] [address] [place] [address] Follow up for pain documented as of [...] documented as of this encounter Care Teams Quarter Lining Smoother Relationship Specialty [place] [address] [place] [address] PCP - General Family Medicine 07/09/12 10/05/23 Shlomo Hu II, MD 112 [facility] 110 [place] [address] PCP - General Internal Medicine 10/06/23 Jacob Sharp [address] [place] [address] Referring 04/30/[address] [place] [id number] Registered Dietitian Nutrition 06/24/[address] [place] [address] Registered Dietitian Nutrition 08/27/23 Yuan Miller MD, PhD [address] [place] [address] Surgeon General Surgery 02/03/24 documented as of this encounter
--- OUTSIDE RECORDS SUMMARY | 2025-03-28 09:16 | XMS_ITS | Encounter Summary ---
Author Organization [facility] Address [address] [facility] [place] [address] Care Team Providers Care Senior Producer Name Role Phone Shlomo Hu MD Primary Care Provider Jacob Sharp STAFFING AND SCHEDULING COORDINATOR Unavailable Thursday, Toya BELL CLERK Unavailable [phone] Shlomo Hu MD Unavailable [phone] Shante Kumar DIGITAL SALES MANAGER-AUDITING MANAGER Unavailable Claribel Scott RN Unavailable Maximo Jess BELL CLERK Unavailable Esthela Tesfaye DIRECTOR ENTERPRISE DATA ARCHITECTURE Unavailable Encounter Details Date Type Department Care Team (Late st Contact Info) Description 12/07/2023 Abstract [facility] 112 [facility] 110 [place] [address] Shlomo Hu MD 112 [facility] 110 [place] [address] Social History Tobacco Use Types [...] week 03/01/2023 How often do you attend [facility] or evangelical services? 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 Not on file Not on file Not on file documented as of this encounter Plan of Treatment Upcoming Encounters Date Type Department Care Team (Late st Contact Info) Description 04/12/2025 9:50 AM EDT Office Visit [facility] [address] [place] [address] Tanya Lozano MD [address] [place] [address] 04/20/2025 3:00 PM EDT Office Visit [facility] [address] [place] [address] [place] [address] Sonny Rodriguez DPM [address] [address] 05/04/2025 2:50 PM EDT Office Visit [facility] [address] [place] [address] [place] [address] Sonny Rodriguez DPM [address] [address] documented as of this encounter Visit Diagnoses Not on filedocumented in this encounter Additional Health Concerns Assessment Noted Time PHQ-9 Depression Total Score: 9 08/26/20 23 1:30 PM EST documented as of this encounter Care Teams Senior Producer Relationship Specialty Start Date End Date Shlomo Hu MD [address] [place] [address] [place] [address] PCP - General Internal Medicine 02/15/23 [place] [address] [place] [address] PCP - Denzel Mckeon 08/14/23 Shlomo Hu MD [address] [place] [address] [place] [address] PCP - [place] Commercial 05/15/2407/14 Shante Kumar, DIGITAL SALES MANAGER-AUDITING MANAGER [address] [place] [place] [address] PCP - [employer] 07/15/24 ThursdayToya LPN [address] [place] [address] Licensed Practical Nurse Family Medicine 01/19/24 10/21/24 Claribel Scott, RN [address] [place] [address] Licensed Practical Nurse Family Medicine 10/21/24 12/06/24 Jess Marsh LPN [address] [facility] 110 [place] [address] 12/06/24 Esthela Tesfaye, KIRA [address] [place] [address] Refinish Technician Family Medicine 02/03/25 documented as of this encounter
--- OUTSIDE RECORDS SUMMARY | 2025-03-28 09:16 | XMS_ITS | Encounter Summary ---
Author Organization [facility] Address [address] [place] [address] Care Team Providers Care Ship'S Carpenter Name Role Phone Jacob Sharp Unavailable Rasheeda Newton RD Unavailable [phone] Unavailable [phone] Fritz HENDERSON MD, Shlomo Momin Primary Care Provider [phone] Yuan Miller MD, PhD Unavailable [phone] Source Comments In the event this information is protected by the Federal Confidentiality of Alcohol and Drug AbusePatient Records regulations: The Federal rules restrict any use of the information to criminally investigate or prosecute any alcohol or drug abuse patient.[facility] Encounter Details Date Type Department Care Team (Late st Contact Info) Description 07/20/2024 Get Medical Advice [facility] [address] [place], [place] [id number] Ary Mao MD, PhD [address] [place] [address] Stiffiness and pain Social History Tobacco Use Types Packs/Day Years Used Date Smoking Tobacco: Never Smokeless Tobacco: Never Alcohol Use Standard Drinks/Week Comments Not Currently 0 (1 standard drink = 0.6 oz pur e alcohol) [facility] Utilities Answer Date Recorded In [...] living in a correction (including now)? No 07/08/2024 Area Deprivation Index Answer Date Reagan rded National Score (1-100), lower number is lower ri sk 63 03/05/2023 State Score (1-10), lower number is lower risk 4 03/05/2023 Data from: https://www.neighborhoodatlas.medicine.[facility]/. Last address used for calculation [address] 270 03/05/2023 Comments No [...] Date Author No 07/10/2024 3:08 PM Lubna Dang, RN documented in this encounter Plan of Treatment Upcoming Encounters Date Type Department Care Team (Latest Contact Info) Description 03/31/2025 11:00 AM EDT Office Visit General Surgery [address] [place] [address] [id number] Michael Mora PA-C [address] [place] [phone] follow up- add on ok'd by Michael 04/07/2025 1:00 PM EDT [facility] Neurological Amish [address] [place] [address] Agatha Kim PSYD [address] [place] [address] 04/19/2025 11:00 AM EDT [facility] Neurological Amish [address] [place] 9871006 Joann Loera APRN.MOTION PICTURE SET WORKER [address] [place] [phone] Cognitive movement issues 04/21/2025 8:30 AM T [facility] Nutrition Therapy [address] [place] [phone] Tiffany Banks, RD [address] [place] [address] f/u TF forula tolerance and hydration 05/29/2025 9:00 AM EDT [facility] Gastroenterology [address] [place] [phone] Johanna Martinez MD [facility] [address] [place], [place] [address] 3 month follow up 06/28/2025 10:00 AM T [facility] Neurology Pain [address] [place] 9871006 [place] [address] [place] [address] Follow up for pain documented as of this encounter Visit Diagnoses Not on filedocumented in this encounter Additional Health Concerns Infection Onset Date Last Indicated Resolved Time COVID-19 Rule-Out 07/29/2024 07/29/2024 07/29/2024 7:20 PM EST documented as of this encounter Care Teams Ship'S Carpenter Relationship Specialty Start Date End Date Shlomo Hu II, MD [address] [facility] 110 [place] [address] PCP - General Internal Medicine 10/06/23 Jacob Sharp [address] [place] [id number] Referring 04/30/[address] [place] [phone] Registered Dietitian Nutrition 06/24/[address] [place], [place] [address] Registered Dietitian Nutrition 08/27/23 Yuan Miller MD, PhD [facility]2 [place] [address] Surgeon General Surgery 02/03/24 documented as of this encounter
--- OUTSIDE RECORDS SUMMARY | 2025-03-28 09:16 | XMS_ITS | Encounter Summary ---
Author Organization [facility] Address [address] [facility] [place] [address] Care Team Providers Care Supervisor Steffen House Name Role Phone Shlomo Hu MD Primary Care Provider [phone] Jacob Sharp BENDING ROLL HAND Unavailable [phone] Thursday, Toya GEOLOGICAL TECHNICIAN Unavailable [phone] Shlomo Hu MD Unavailable [phone] Shante Kumar TRANSIT MIXER DRIVER-BRASSWIND INSTRUMENT REPAIRER Unavailable Claribel Scott RN Unavailable [phone] Jess Marsh GEOLOGICAL TECHNICIAN Unavailable Esthela Tesfaye SPECIAL DEPUTY SHERIFF Unavailable Encounter Details Date Type Department Care Team (Late st Contact Info) Description 11/20/2023 Orders Only [facility] [address] [facility] 110 [place] [address] Yanci Aguilar PA [address] [facility] 110 [place], [place] [phone] Ectopic thyroid tissue; Hypothyroidism, unspecified type Social History Tobacco Use Types [...] How often do you attend chur or bahai services? Patient declined 03/01/2023 Do you belong [...] Recorded Patient Health Questionnaire-2 Score 6 08/26/2023 [facility] of Occupat ional Health - Occupational Stress [...] [facility] [address] [place] [address] Tanya Lozano MD [address] [place] [address] 04/20/2025 3:00 PM EDT Office Visit [facility] [address] [place] [address] Sonny Rodriguez, DPM 3006 [facility] 5 [place] [address] 05/04/2025 2:50 PM EDT Office Visit [facility] [address] [facility] 120 [place] [address] Sonny Rodriguez, DPM [address]006 [facility] 5 [place] [address] documented as of this encounter Visit Diagnoses Diagnosis 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 Hypothyroidism, unspecified type documented in this encounter Additional Health Concerns Assessment Noted Time PHQ-9 Depression Total Score: 9 08/26/20 23 1:30 PM EST documented as of this encounter Care Teams Supervisor Steffen House Relationship Specialty Start Date End Date Shlomo Hu MD [address] [facility] 110 [place] [address] PCP - General Internal Medicine 02/15/23 [place] [address] [place] [address] PCP - Sharon Commercial 08/14/23 Shlomo Hu MD [address] [facility] 110 [place] [address] PCP - Sharon Commercial 05/15/2407/14 Shante Kumar, TRANSIT MIXER DRIVER-BRASSWIND INSTRUMENT REPAIRER [address] [place] [place] [address] PCP - Sharon Commercial 07/15/24 ThursdayToya LPN [address] [place] [address] Licensed Practical Nurse Family Medicine 01/19/24 10/21/24 Claribel Scott, RN [address] [place] [address] Licensed Practical Nurse Family Medicine 10/21/24 12/06/24 Jess Marsh LPN [address] [facility] 110 [place] [address] 12/06/24 Esthela Tesfaye, KIRA [address] [place] [address] Cyber Defense Analyst Family Medicine 02/03/25 documented as of this encounter
--- OUTSIDE RECORDS SUMMARY | 2025-03-28 09:17 | XMS_ITS | Encounter Summary ---
Author Organization [facility] Address [address] [place] [address] Care Team Providers Care Deodorizer Operator Name Role Phone Siobhan Sharpjusto Unavailable Rasheeda Newton RD Unavailable [phone] Unavailable [phone] Fritz HENDERSON MD, Shlomo Momin Primary Care Provider [phone] Yuan Miller MD, PhD Unavailable [phone] Source Comments In the event this information is protected by the Federal Confidentiality of Alcohol and Drug AbusePatient Records regulations: The Federal rules restrict any use of the information to criminally investigate or prosecute any alcohol or drug abuse patient.[facility] Encounter Details Date Type Department Care Team (Late st Contact Info) Description 06/02/2024 Patient Msg Internal Medicine [place] [address] [place] [address] Provider, Valerie 07/29/2024 Appointment Social History Tobacco Use Types Packs/Day [...] PHQ-2 Answer Date Recorded PHQ-2 score 3 05/23/2024 Hunger Vital Sign Answer Date Recorded Within [...] health care facility (including now)? No 02/16/2024 Area Deprivation Index Answer Date Reagan rded National Score (1-100), lower number is lower ri sk 63 03/05/2023 State Score (1-10), lower number is lower risk 4 03/05/2023 Data from: https://www.neighborhoodatlas.medicine.[facility].edu/. Last address used for calculation [address] [...] AM EDT Office Visit General Surgery [address] [place] [address] Michael Mora PA-C [address] [place], [place] [address] follow up- add on ok'd by Michael 04/07/2025 1:00 PM EDT [facility] [address] [place] [phone] Agatha Kim PSYD [address] [place] [phone] 04/19/2025 11:00 AM EDT [facility] Neurological Taoism [address] [place] [address] Joann Loera APRN.ECONOMIC CONSULTANT [address] [place] [address] Cognitive movement issues 04/21/2025 8:30 AM EDT [facility] Nutrition Therapy [address] [address] Tiffany Banks, RD [address] [place] [address] f/u TF forula tolerance and hydration 05/29/2025 9:00 AM EDT [facility] Gastroenterology [address] [place] [phone] Johanna Martinez MD [facility] [address] [place], [place] [address] 3 month follow up 06/28/2025 10:00 AM EDT [facility] Neurology Pain [address] [place] [address] [place] [address] [place] [address] Follow up for pain documented as of this encounter Visit Diagnoses Not on filedocumented in this encounter Additional Health Concerns Infection Onset Date Last Indicated Resolved Time COVID-19 Rule-Out 07/29/2024 07/29/2024 07/29/2024 7:20 PM EST documented as of this encounter Care Teams Deodorizer Operator Relationship Specialty Start Date End Date Shlomo Hu II, MD [address] [place] [address] [place] [address] PCP - General Internal Medicine 10/06/23 Jacob Sharp [address] [place], [place] [address] Referring 04/30/[address] [place] [phone] Registered Dietitian Nutrition 06/24/[address] [place] [address] Registered Dietitian Nutrition 08/27/23 Yuan Miller MD, PhD [address] [place] [address] Surgeon General Surgery 02/03/24 documented as of this encounter
--- OUTSIDE RECORDS SUMMARY | 2025-03-28 09:17 | XMS_ITS | Encounter Summary ---
Author Organization [facility] Address [address] [place] [address] Care Team Providers Care Computer Hardware Technician Name Role Phone Yg James MD Primary Care Provider [phone] Sean Ruiz DO Primary Care Provider [phone] Jacob Sharp Unavailable Rasheeda Newton RD Unavailable [phone] Unavailable [phone] Fritz HENDERSON MD, Shlomo B Primary Care Provider [phone] Yuan Miller MD, PhD Unavailable [phone] Source Comments In the event this information is protected by the Federal Confidentiality of Alcohol and Drug AbusePatient Records regulations: The Federal rules restrict any use of the information to criminally investigate or prosecute any alcohol or drug abuse patient.[facility] Encounter Details Date Type Department Care Team (Late st Contact Info) Description 07/08/2012 Abstract [facility] [address] [place], [place] [phone] Juan Byrne MD [address] [place] [address] [phone] Social History Tobacco Use Types Packs/Day Years Used Date Smoking Tobacco: Never Cigarettes Smokeless Tobacco: Never Alcohol Use Standard Drinks/Week Comments No 0 (1 standard drink = 0.6 oz [...] AM EDT Office Visit General Surgery [address] [place] [address] [phone] Michael Mora PA-C [address] [place] [phone] follow up- add on ok'd by Michael 04/07/2025 1:00 PM EDT [facility] Neurological Amish [address] [place] [address] Agatha Kim PSYD [address] [place], [place] [phone] 04/19/2025 11:00 AM EDT [facility] Neurological Amish [address] [place] [phone] Joann Loera APRN.CAR INSTALLATIONS SUPERVISOR [address] [place] [phone] Cognitive movement issues 04/21/2025 8:30 AM EDT [facility] Nutrition Therapy [address] [place] [phone] Tiffany Banks, RD [address] [place] [address] f/u TF forula tolerance and hydration 05/29/2025 9:00 AM EDT [facility] Gastroenterology [address] [place] [phone] Johanna Martinez MD [address] [address] 3 month follow up 06/28/2025 10:00 AM EDT [facility] Neurology Pain [address] [facility] [place] [address] [place] [address] [place], [place] 8568[address] Follow up for pain documented as of [...] documented as of this encounter Care Teams Computer Hardware Technician Relationship Specialty [place] [address] [place] [address] PCP - General 10/29/07 07/08/12 [place] [address] [place] [address] PCP - General Family Medicine 07/09/12 10/05/23 Shlomo Hu II, MD [address] [address] PCP - General Internal Medicine 10/06/23 Jacob Sharp [address] [place] [address] Referring 04/30/[address] [place] [phone] Registered Dietitian Nutrition 06/24/[address] [place] [address] Registered Dietitian Nutrition 08/27/23 Yuan Miller MD, PhD [address] [place] [address] [id number] Surgeon General Surgery 02/03/24 documented as of this encounter
--- OUTSIDE RECORDS SUMMARY | 2025-03-28 09:17 | XMS_ITS | Encounter Summary ---
Author Organization [facility] Address [address] [facility] [place] [address] Care Team Providers Care Clinic Business Manager Name Role Phone Shlomo Hu MD Primary Care Provider Jacob Sharp STORY EDITOR Unavailable [phone] Thursday, Toya GYNECOLOGY TEACHER Unavailable [phone] Shlomo Hu MD Unavailable [phone] Shante Kumar HEALTHCARE REPRESENTATIVE-SET UP PERSON Unavailable Claribel Scott RN Unavailable [phone] Maximo Jess GYNECOLOGY TEACHER Unavailable Esthela Tesfaye PLANT CONTROLS SPECIALIST Unavailable Encounter Details Date Type Department Care Team (Late st Contact Info) Description 09/16/2023 Abstract [facility] 112 [facility] [address] [place] [address] Shlomo Hu MD 112 [facility] 110 [place] [address] Social History Tobacco Use Types [...] often do you attend [facility] or catholic services? Patient declined 03/01/2023 Do you belong [...] Recorded Patient Health Questionnaire-2 Score 6 08/26/2023 [facility] of Occupat ional Health - Occupational [...] AM EDT Sexual Orientation Not on file COVID-19 Exposure Response Date Recorded In the last 10 days, have yo u been in contact with someone who was confirmed or suspected to have Coronavirus/COVID-19? No / Unsure 08/19/2023 8:35 AM EST documented as of this encounter Plan of Treatment Upcoming Encounters Date Type Department Care Team (Late st Contact Info) Description 04/12/2025 9:50 AM EDT Office Visit [facility] [address] [place] [address] Tanya Lozano MD [address] [place] [address] 04/20/2025 3:00 PM EDT Office Visit [facility] P[facility]AT[facility] [address] [place] [address] Sonny Rodriguez DPM 3006 [facility] 5 [place] [address] 05/04/2025 2:50 PM EDT Office Visit [facility] [address] [place] [address] Sonny Rodriguez DPM 3006 [facility] 5 [place] [address] documented as of this encounter Visit Diagnoses Not on filedocumented in this encounter Additional Health Concerns Assessment Noted Time PHQ-9 Depression Total Score: 9 08/26/20 23 1:30 PM EST documented as of this encounter Care Teams Clinic Business Manager Relationship Specialty Start Date End Date Shlomo Hu MD [address] [place] [address] PCP - General Internal Medicine 02/15/23 [place] [address] [place] [address] PCP - [place] [employer] 08/14/23 Shlomo Hu MD [address] [place] [address] PCP - [place] [employer] 05/15/2407/14 Shante Kumar, HEALTHCARE REPRESENTATIVE-SET UP PERSON [address] [facility] [address] [place] [address] PCP - [place] [employer] 07/15/24 5 ThursdayToya LPN [address] [facility] [address] [place] [address] Licensed Practical Nurse Family Medicine 01/19/24 10/21/24 Claribel Scott, PIETRO [address] [place] [address] Licensed Practical Nurse Family Medicine 10/21/24 12/06/24 Jess Marsh LPN [address] [facility] [address] [place] [address] 12/06/24 Esthela Tesfaye LSW [address] [place] [address] Radio Script Writer Family Medicine 02/03/25 documented as of this encounter
--- OUTSIDE RECORDS SUMMARY | 2025-03-28 09:17 | XMS_ITS | Encounter Summary ---
Author Organization [facility] Address [address] [place] [address] Care Team Providers Care Laborer Operator Name Role Phone Sean Ruiz DO Primary Care Provider [phone] Jacob Sharp Unavailable Rasheeda Newton RD Unavailable [phone] Unavailable [phone] Fritz HENDERSON MD, Shlomo Momin Primary Care Provider [phone] Yuan Miller MD, PhD Unavailable [phone] Source Comments In the event this information is protected by the Federal Confidentiality of Alcohol and Drug AbusePatient Records regulations: The Federal rules restrict any use of the information to criminally investigate or prosecute any alcohol or drug abuse patient.[facility] Encounter Details Date Type Department Care Team (Late st Contact Info) Description 07/23/2012 Patient Msg Medical Records [address] [place] [address] Provider, Ccf RE: Appointment Cancellation Request Social History Tobacco [...] AM EDT Office Visit General Surgery [address] [place] [address] Michael Mora PA-C [address] [place] [id number] follow up- add on ok'd by Michael 04/07/2025 1:00 PM EDT [facility] Neurological Pentecostalism [address] [place] [address] Agatha Kim PSYD [address] [place] [id number] 04/19/2025 11:00 AM EDT [facility] Neurological Pentecostalism [address] [place] [id number] Joann Loera APRN.HEALTH AND SAFETY CONSULTANT [address] [place] [address] Cognitive movement issues 04/21/2025 8:30 AM EDT [facility] Nutrition Therapy [address] [place] [address] Tiffany Banks, RD [address] [place] [id number] f/u TF forula tolerance and hydration 05/29/2025 9:00 AM EDT [facility] Gastroenterology [address] [place] [id number] Johanna Martinez MD [facility] [address] [place] [address] 3 month follow up 06/28/2025 10:00 AM EDT [facility] Neurology Pain [address] [facility] [place] [place] [address] [place] [address] [place] [address] Follow up for pain documented as of [...] documented as of this encounter Care Teams Laborer Operator Relationship Specialty [place] [address] [place] [address] PCP - General Family Medicine 07/09/12 10/05/23 Shlomo Hu II, MD 112 [facility] 110 [place] [address] PCP - General Internal Medicine 10/06/23 Jacob Sharp [address] [place] [address] Referring 04/30/[address] [place] [id number] Registered Dietitian Nutrition 06/24/[address] [facility] [place] [address] Registered Dietitian Nutrition 08/27/23 Yuan Miller MD, PhD [address] [place] [address] Surgeon General Surgery 02/03/24 documented as of this encounter
--- OUTSIDE RECORDS SUMMARY | 2025-03-28 09:17 | XMS_ITS | Encounter Summary ---
Author Organization [facility] Address [id number] [address] [place] [address] Care Team Providers Care Equipment Technician Name Role Phone JerichoSkylar leiva Julia AUDIO VISUAL DIRECTOR-PROPOSAL REP Primary Care Provider + Reason for Visit * Reason Comments Med Refill Encounter Details Date Type Department Care Team (Late st Contact Info) Description 02/06/2023 Refill [facility] [address] [place] [address] Gilda Meza, AUDIO VISUAL DIRECTOR-PROPOSAL REP [address] [place] [address] Post-menopause atrophic vaginitis Social History Tobacco Use Types Packs/Day Years Used Date Smoking Tobacco: Never Smokeless Tobacco: Never Alcohol Use Standard Drinks/Week Comments Not Currently 0 (1 standard drink = 0.6 oz pur e alcohol) Social Connection and Isolat ion Panel [NHANES] Answer Date Recorded In a typical week, how many times do you talk on the phone with family, friends, or neighbors? More than three times a week 05/08/2022 How often do you get togethe r with friends or relatives? Twice a week 05/08/2022 How often do you attend chur ch or samaritan services? Patient declined 05/08/2022 Do you belong to any clubs o r organizations such as restorationist groups, unions, fraternal or athletic groups, or school groups? No 05/08/2022 How often do you attend meet ings of the clubs or organizations you belong to? Patient declined 05/08/2022 Are you , , di vorced, , never , or living with a partner? 05/08/2022 AUDIT-C Answer Date Recorded Q1: How often do you have a drink containing alcohol? Never 05/08/2022 Q2: How many drinks containi ng alcohol do you have on a typical day when you are drinking? Patient does not drink Q3: How often do you have si x or more drinks on one occasion? Never 05/08/2022 Overall Financial Resource Strain (CARDIA) Answe r Date Recorded How hard is it for you to pa y for the very basics like food, housing, medical care, and heating? Somewhat hard 05/08/2022 PHQ-2 Answer Date Recorded Total Score 0 05/08/2022 [facility] of Occupat ional Health - Occupational Stress Questionnaire Answer Date Recorded Do you feel stress - tense, restless, nervous, or anxious, or unable to sleep at night because your mind is troubled all the time - these days? Only a little 05/08/2022 Exercise Vital Sign Answer Date Recorde d On average, how many days pe r week do you engage in moderate to strenuous exercise (like a brisk walk)? 2 days 05/08/2022 On average, how many minutes do you engage in exercise at this level? 30 min 05/08/2022 PRAPARE - Transportation Answer Date Re corded In the past 12 months, has l ack of transportation kept you from medical appointments or from getting medications? Yes 04/15 In the past 12 months, has l ack of transportation kept you from meetings, work, or from getting things needed for daily living? No 05/08/2022 Childcare Answer Date Recorded Do problems getting child ca re make it difficult for you to work or study? No 05/08/2022 Employment Answer Date Recorded Do you need help finding a l ocal career center and/or a training program? No 05/08/2022 Purpose - Life Answer Date Recorded I have a purpose and direction in my life. Stron gly Agree 05/08/2022 Education Answer Date Recorded What is the highest level of school you have completed or the highest degree you have received? Associate degree: academic program 05/08/2022 Comments No Sex and Gender Information Value Date Recorded Sex Assigned at Female 01/20/2023 6:09 PM EDT Legal Sex Female 8:11 PM EDT Gender Identity Female 01/20/2023 6:09 PM EDT Sexual Orientation Not on file documented as of this encounter Plan of Treatment Not on file documented as of this encounter Goals Goal Patient Goal Type Associated Problems Recent Progress Patient-Stated? Author safe discharge to home General Yes Soledad Oliva, RN Note: Evaluation of progress towards goal: safe transition from hospital to home with family support. documented as of this encounter Visit Diagnoses Diagnosis Post-menopause atrophic vaginitis Postmenopausal atrophic vaginitis documented in this encounter Additional Health Concerns Assessment Noted Time PHQ-9 Depression Total Score: 0 05/08/20 22 4:29 PM EDT A Body Mass Index follow-up plan has been documented for the patient 05/13/2022 11:13 AM EDT documented as of this encounter Care Teams Equipment Technician Relationship Specialty Start Date End Date Skylar Echavarria, AUDIO VISUAL DIRECTOR-PROPOSAL REP [address] [place] [address] PCP - General Internal Medicine 11/18/23 documented as of this encounter
--- OUTSIDE RECORDS SUMMARY | 2025-03-28 09:17 | XMS_ITS | Encounter Summary ---
Author Organization [facility] Address [address] [facility] [place] [address] Care Team Providers Care Media Clerk Name Role Phone Shlomo Hu MD Primary Care Provider Jacob Sharp RADIAL DRILL PRESS OPERATOR Unavailable Thursday, Toya INJECTION MOLD TECHNICIAN Unavailable [phone] Shlomo Hu MD Unavailable [phone] Shante Kumar BEAMSTER-PARAFFIN MACHINE OPERATOR Unavailable Claribel Scott RN Unavailable Jess Marsh INJECTION MOLD TECHNICIAN Unavailable Esthela Tesfaye PROJECT ENGINEERING MANAGER Unavailable Encounter Details Date Type Department Care Team (Late st Contact Info) Description 06/04/2023 Abstract [facility] 112 [facility] 110 [place] [address] Shlomo Hu MD 112 [facility] 110 [place] [address] Social History Tobacco Use Types [...] 03/01/2023 How often do you attend [facility] or oriental orthodox services? Patient declined 03/01/2023 Do you belong to any clubs o r organizations such as evangelical groups, unions, fraternal or athletic groups, or [...] medical care, and heating? Somewhat hard 03/01/2023 [facility] of Occupat ional Health - [...] suspected to have Coronavirus/COVID-19? No / Unsure 06/01/2023 2:17 PM EDT documented as of this encounter Plan of Treatment Upcoming Encounters Date Type Department Care Team (Late st Contact Info) Description 04/12/2025 9:50 AM EDT Office Visit [facility] [address] [place] [address] Tanya Lozano MD [address] [place] [address] 04/20/2025 3:00 PM EDT Office Visit [facility] P[facility] [address] [place] [address] Sonny Rodriguez DPM 3[address] [facility] 5 [place] [address] 05/04/2025 2:50 PM EDT Office Visit [facility] [address] [place] [address] Sonny Rodriguez DPLudmila 3006 [facility] 5 [place] [address] documented as of this encounter Visit Diagnoses Not on filedocumented in this encounter Care Teams Media Clerk Relationship Specialty Start Date End Date Shlomo Hu MD [address] [place] [address] PCP - General Internal Medicine 02/15/23 [place] [address] [place] [address] PCP - [place] Commercial 08/14/23 Shlomo Hu MD [address] [place] [address] PCP - [place] Commercial 05/15/2407/14 Shante Kumar, BEAMSTER-PARAFFIN MACHINE OPERATOR [address] [place] [address] PCP - Denzel Mckeon 07/15/24 ThursdayToya LPN [address] [place] [address] Licensed Practical Nurse Family Medicine 01/19/24 10/21/24 Claribel Scott, RN [address] [place] [address] Licensed Practical Nurse Family Medicine 10/21/24 12/06/24 Jess Marsh LPN [address] [facility] 110 [place] [address] 12/06/24 Esthela Tesfaye, KIRA [address] [place] [address] Accounting Intern Family Medicine 02/03/25 documented as of this encounter
--- OUTSIDE RECORDS SUMMARY | 2025-03-28 09:17 | XMS_ITS | Encounter Summary ---
Author Organization [facility] Address [address] [facility] [place] [address] Care Team Providers Care Regulatory Technician Name Role Phone Shlomo Hu MD Primary Care Provider Jacob Sharp ON LINE CSR Unavailable Thursday, Toya INJECTION MOULDING MACHINE OPERATOR Unavailable [phone] Shlomo Hu MD Unavailable [phone] Shante Kumar BOOK SALESMAN-ASSEMBLER [employer] Unavailable Claribel Scott RN Unavailable [phone] Maximo Jess INJECTION MOULDING MACHINE OPERATOR Unavailable Esthela Tesfaye CERTIFIED FAMILY MEDIATOR Unavailable Encounter Details Date Type Department Care Team (Late st Contact Info) Description 06/08/2023 Abstract [facility] 112 [facility] 110 [place] [address] Shlomo Hu MD 112 [facility] [address] [place] [address] Social History Tobacco Use Types [...] week 03/01/2023 How often do you attend [facility] or sabianism services? Patient declined 03/01/2023 Do you belong to any clubs o r organizations such as mosque groups, unions, fraternal or athletic groups, or [...] medical care, and heating? Somewhat hard 03/01/2023 [facility] of Occupat ional [...] SH ENDOCRINOLOGY [address] [place] [address] Tanya Lozano MD [address] [place] [address] 04/20/2025 3:00 PM EDT Office Visit [facility] [address] [place] [address] Sonny Rodriguez DPM 3006 [facility] 5 [place] [address] 05/04/2025 2:50 PM EDT Office Visit [facility] [address] [place] [address] Sonny Rodriguez DPLudmila 3006 [facility] 5 [place] [address] documented as of this encounter Visit Diagnoses Not on filedocumented in this encounter Care Teams Regulatory Technician Relationship Specialty Start Date End Date Shlomo Hu MD [address] [place] [address] PCP - General Internal Medicine 02/15/23 [place] [address] [place] [address] PCP - [place] Commercial 08/14/23 Shlomo Hu MD [address] [place] [address] PCP - [place] Commercial 05/15/2407/14 Shante Kumar, BOOK SALESMAN-ASSEMBLER [employer] [address] [place] [address] PCP - Denzel Mckeon 07/15/24 ThursdayToya LPN [address] [place] [address] Licensed Practical Nurse Family Medicine 01/19/24 10/21/24 Claribel Scott, RN [address] [place] [address] Licensed Practical Nurse Family Medicine 10/21/24 12/06/24 Jess Marsh LPN [address] [facility] [address] [place] [address] 12/06/24 Esthela Tesfaye, KIRA [address] [place] [address] Survey Questionnaire Designer Family Medicine 02/03/25 documented as of this encounter
--- OUTSIDE RECORDS SUMMARY | 2025-03-28 09:17 | XMS_ITS | Encounter Summary ---
Author Organization [facility] Address [address] [place], [place] [address] Care Team Providers Care Data Analytics Chief Scientist Name Role Phone Jacob Sharp Unavailable Rasheeda Newton RD Unavailable [phone] Unavailable [phone] Fritz HENDERSON MD, Shlomo Momin Primary Care Provider [phone] Yuan Miller MD, PhD Unavailable [phone] Source Comments In the event this information is protected by the Federal Confidentiality of Alcohol and Drug AbusePatient Records regulations: The Federal rules restrict any use of the information to criminally investigate or prosecute any alcohol or drug abuse patient.[facility] Encounter Details Date Type Department Care Team (Late st Contact Info) Description 06/08/2024 Get Medical Advice Pain Management [address] [place], [place] [phone] Johann Echeverria MD [address] [place], [place] [id number] Medical necessity Social History Tobacco Use Types Packs/Day Years [...] in a custodial (including now)? No 02/16/2024 Area Deprivation Index Answer Date Reagan rded National Score (1-100), lower number is lower ri sk 63 03/05/2023 State Score (1-10), lower number is lower risk 4 03/05/2023 Data from: https://www.neighborhoodatlas.medicine.[facility].edu/. Last address used for calculation [address] [...] Chelle Connell RN documented in this encounter Miscellaneous Notes * Telephone Encounter - Daniela Ford LPN - 06/21/2024 8:01 AM EDT Patient picked up letter from desk. documented in this encounter Plan of Treatment Upcoming Encounters Date Type Department Care Team (Latest Contact Info) Description 03/31/2025 11:00 AM EDT Office Visit General Surgery [address] [place] [address] Michael Mora PA-C [address] [place] [address] follow up- add on ok'd by Michael 04/07/2025 1:00 PM EDT [facility] Neurological Shinto [address] [place] [address] Agatha Kim PSYD [address] [place] [address] 04/19/2025 11:00 AM EDT [facility] Neurological Shinto [address] [place] [address] Joann Loera APRN.HEALTHCARE ADMINISTRATOR [address] [place] [id number] Cognitive movement issues 04/21/2025 8:30 AM EDT [facility] Nutrition Therapy [address] [place] [id number] Tiffany Banks, RD [address] [place] [id number] f/u TF forula tolerance and hydration 05/29/2025 9:00 AM T [facility] Gastroenterology [address] [place] [id number] Johanna Martinez MD [facility] [address] [place] [address] 3 month follow up 06/28/2025 10:00 AM T [facility] Neurology Pain [address] [place] [phone] [place] [address] [place] [id number] Follow up for pain documented as of this encounter Visit Diagnoses Not on filedocumented in this encounter Additional Health Concerns Infection Onset Date Last Indicated Resolved Time COVID-19 Rule-Out 07/29/2024 07/29/2024 07/29/2024 7:20 PM EST documented as of this encounter Care Teams Data Analytics Chief Scientist Relationship Specialty Start Date End Date Shlomo Hu II, MD [address] [facility] [address] [place] [address] PCP - General Internal Medicine 10/06/23 Jacob Sharp [address] [place] [address] Referring 04/30/[address] [place] [address] Registered Dietitian Nutrition 06/24/[address] [place] [address] Registered Dietitian Nutrition 08/27/23 Yuan Miller MD, PhD [address] [place] [address] Surgeon General Surgery 02/03/24 documented as of this encounter
--- OUTSIDE RECORDS SUMMARY | 2025-03-28 09:17 | XMS_ITS | Encounter Summary ---
Author Organization [facility] Address [address] [place] [address] Care Team Providers Care General Counselor Name Role Phone Shlomo Hu MD Primary Care Provider [phone] Jacob Sharp JIG AND FIXTURE BUILDER Unavailable [phone] Thursday, Toya SEBD TEACHER Unavailable [phone] Shlomo Hu MD Unavailable [phone] Shante Kumar DATA QUALITY CONSULTANT-WAD BLANKING PRESS ADJUSTER Unavailable Claribel Scott RN Unavailable Jess Marsh SEBD TEACHER Unavailable Esthela Tesfaye FOUNDATION RELATIONS MANAGER Unavailable [phone] Encounter Details Date Type Department Care Team (Late st Contact Info) Description 07/03/2023 Clinisync Result Encounter [facility] External Department Unsolicited [...] do you attend chur or yarsani services? Patient declined 03/01/2023 Do you belong [...] medical care, and heating? Somewhat hard 03/01/2023 [facility] - [...] suspected to have Coronavirus/COVID-19? No / Unsure 06/29/2023 3:27 PM EDT documented as of this encounter Plan of Treatment Upcoming Encounters Date Type Department Care Team (Late st Contact Info) Description 04/12/2025 9:50 AM EDT Office Visit [facility] [address] [place] [address] Tanya Lozano MD [address] [place] [address] 04/20/2025 3:00 PM EDT Office Visit [facility] [address] [place] [address] Sonny Rodriguez, DPM [address] [facility] 5 [place] [address] 05/04/2025 2:50 PM EDT Office Visit [facility] [address] [place] [address] Sonny Rodriguez, DPM [address] [facility] 5 [place] [address] documented as of this encounter Procedures Procedure Name Priority Date/Time Associated Diagnosis Comments MRI PANC/KIARRA WO/W IVCON 07/03/2023 11:55 AM EDT documented in this encounter Results * MRI PANC/KIARRA WO/W IVCON (07/03/2023 11:55 AM EDT) Anatomical Region Laterality Modality Other 07/03/2023 11:5 5 AM EDT Narrative 07/03/2023 1:09 PM EDT * * *Final Report* * * DATE OF EXAM: Jul 03 2023 11:55AM M2M 0730 - MRI PANC/KIARRA WO/W IVCON / PROCEDURE REASON: multiple diagnoses * * * * Physician Interpretation * * * * MRI ABDOMEN / PANCREAS-BILIARY WITHOUT AND WITH IV CONTRAST HISTORY: Chronic diarrhea and abdominal pain. 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 TECHNIQUE: Magnet: 3.0T scanner. Multiplanar MRI with multiple sequences before and after contrast. Contrast: IV: 20.0 ml of Dotarem COMPARISON: Outside CT 06/03/2023, previous CTs 04/21/2023 and 04/07/2023. RESULT: Liver: Normal morphology. No hepatic steatosis. [...] veins: Patent. Bones/Soft Tissues: No acute findings Localizer images: No additional findings. IMPRESSION: Mild pancreatic atrophy but no cystic or solid mass, or other findings to explain diarrhea. Mild central bile duct prominence is likely postcholecystectomy change. Expected changes following Gelacio-en-Y gastric bypass. Grocery Store Associate: ZACHERY Transcribe Date/Time: Jul 03 2023 12:53P Dictated by : SAIMA LOCKE MD This examination was interpreted and the report reviewed and electronically signed by: SAIMA LOCKE MD on Jul 03 2023 1:07PM EST [id number]^SI^ACN Procedure Note Radiology, Radiologist, - 07/03/2023 * * *Final Report* * * DATE OF EXAM: Jul 03 2023 11:55AM M2M 0730 - MRI PANC/KIARRA WO/W IVCON / PROCEDURE REASON: multiple diagnoses * * * * Physician Interpretation * * * * MRI ABDOMEN / PANCREAS-BILIARY WITHOUT AND WITH IV CONTRAST HISTORY: Chronic diarrhea and abdominal pain. 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 TECHNIQUE: Magnet: 3.0T scanner. Multiplanar MRI with multiple sequences before and after contrast. Contrast: IV: 20.0 ml of Dotarem COMPARISON: Outside CT 06/03/2023, previous CTs 04/21/2023 and 04/07/2023. RESULT: Liver: Normal morphology. No hepatic steatosis. [...] veins: Patent. Bones/Soft Tissues: No acute findings Localizer images: No additional findings. IMPRESSION: Mild pancreatic atrophy but no cystic or solid mass, or other findings to explain diarrhea. Mild central bile duct prominence is likely postcholecystectomy change. Expected changes following Gelacio-en-Y gastric bypass. Grocery Store Associate: ZACHERY Transcribe Date/Time: Jul 03 2023 12:53P Dictated by : SAIMA LOCKE MD This examination was interpreted and the report reviewed and electronically signed by: SAIMA LOCKE MD on Jul 03 2023 1:07PM EST [id number]^ACN Generic External Data Provider [facility] Final Result documented in this encounter Visit Diagnoses Not on filedocumented in this encounter Care Teams General Counselor Relationship Specialty Start Date End Date Shlomo Hu MD [address] [facility] [address] [place] [address] PCP - General Internal Medicine 02/15/23 [place] [address] [facility] [place] [address] PCP - [place] [employer] 08/14/23 Shlomo Hu MD [address] [facility] [address] [place] [address] PCP - [place] [employer] 05/15/2407/14 Shante Kumar, DATA QUALITY CONSULTANT-WAD BLANKING PRESS ADJUSTER [address] [facility] [address] [place] [address] PCP - [place] [employer] 07/15/24 ThursdayToya LPN [address] [facility] 110 [place] [address] Licensed Practical Nurse Family Medicine 01/19/24 10/21/24 Claribel Scott, RN [address] [place] [address] Licensed Practical Nurse Family Medicine 10/21/24 12/06/24 Jess Marsh LPN [address] [facility] [address] [place] [address] 12/06/24 Esthela Tesfaye LSW [address] [place] [address] Coal Trimmer Family Medicine 02/03/25 documented as of this encounter
--- OUTSIDE RECORDS SUMMARY | 2025-03-28 09:17 | XMS_ITS | Encounter Summary ---
Author Organization [facility] Address [address] [place] [address] Care Team Providers Care Golf Club Maker Name Role Phone Jacob Sharp Unavailable Rasheeda Newton RD Unavailable [phone] Unavailable [phone] Fritz HENDERSON MD, Shlomo Momin Primary Care Provider [phone] Yuan Miller MD, PhD Unavailable [phone] Source Comments In the event this information is protected by the Federal Confidentiality of Alcohol and Drug AbusePatient Records regulations: The Federal rules restrict any use of the information to criminally investigate or prosecute any alcohol or drug abuse patient.[facility] Encounter Details Date Type Department Care Team (Late st Contact Info) Description 06/13/2024 Get Medical Advice Pain Management [address] [place], [place] [phone] Johann Echeverria MD [address] [place], [place] [id number] Refill Social History Tobacco Use Types Packs/Day Years [...] in a detention (including now)? No 02/16/2024 Area Deprivation Index [...] Telephone Encounter - Daniela Ford LPN - 06/14/2024 9:31 AM EDT Per Oarrs: Last fill: 05/25/24 :Gabapentin 600mg 06/08/24: Gabapentin 300mg documented in this encounter Plan of Treatment Upcoming Encounters Date Type Department Care Team (Latest Contact Info) Description 03/31/2025 11:00 AM EDT Office Visit General Surgery [address] [place], [place] [phone] Michael Mora PA-C [address] [place] [address] follow up- add on ok'd by Michael 04/07/2025 1:00 PM EDT [facility] [address] [place] [address] Agatha Kim PSYD [address] [place] [phone] 04/19/2025 11:00 AM EDT [facility] [address] [place] [address] Joann Loera APRN.SUPERVISOR BILLPOSTING [address] [place] [id number] Cognitive movement issues 04/21/2025 8:30 AM EDT [facility] [address] [place] [address] Tiffany Banks, RD [address] [place] [address] f/u TF forula tolerance and hydration 05/29/2025 9:00 AM T [facility] Gastroenterology [address] [place] [address] Johanna Martinez MD [facility] [address] [place] [address] 3 month follow up 06/28/2025 10:00 AM T [facility] Pain [address] [place] [address] [place] [address] [place] [id number] Follow up for pain documented as of this encounter Visit Diagnoses Not on filedocumented in this encounter Additional Health Concerns Infection Onset Date Last Indicated Resolved Time COVID-19 Rule-Out 07/29/2024 07/29/2024 07/29/2024 7:20 PM EST documented as of this encounter Care Teams Golf Club Maker Relationship Specialty Start Date End Date Shlomo Hu II, MD [address] [place] [address] PCP - General Internal Medicine 10/06/23 Jacob Sharp [address] [place] [address] Referring 04/30/[address] [place] [phone] Registered Dietitian Nutrition 06/24/[address] [place] [address] Registered Dietitian Nutrition 08/27/23 Yuan Miller MD, PhD [address] [place] [address] Surgeon General Surgery 02/03/24 documented as of this encounter
--- OUTSIDE RECORDS SUMMARY | 2025-03-28 09:17 | XMS_ITS | Encounter Summary ---
Author Organization [facility] Address [id number] [address] [place] [address] Care Team Providers Care Copper Miner Name Role Phone Skylar Echavarria Julia GARCIA-GENERAL REPAIRER Primary Care Provider + Encounter Details Date Type Department Care Team (Late st Contact Info) Description 10/27/[address] [facility] - PICC [address] [place] [phone] Imer Yang, RN Social History Tobacco Use Types Packs/Day [...] 05/08/2022 How often do you attend chur or religion services? Patient declined 05/08/2022 Do you belong [...] Answer Date Recorded Total Score 0 05/08/2022 [facility] - Occupational [...] Recorded Do you need help finding a [facility] career [facility] and/or a training program? No 05/08/2022 Hunger Screening Answer Date Recorded Within the past 12 months we worried whether our food would run out before we got money to buy more. Never True 09/25/2023 Within the past 12 months th e food we bought just didn't last and we didn't have money to get more. Never True 09/25/2023 Purpose - Life Answer Date Recorded I [...] documented as of this encounter Care Teams Copper Miner Relationship Specialty Start Date End Date Skylar Echavarria, ROUTE SALES ASSOCIATE-GENERAL REPAIRER [address] [place] [address] PCP - General Internal Medicine 11/18/23 documented as of this encounter
--- OUTSIDE RECORDS SUMMARY | 2025-03-28 09:17 | XMS_ITS | Encounter Summary ---
Author Organization [facility] Address [address] [facility] [place] [address] Care Team Providers Care Credit Cashier Name Role Phone Shlomo Hu MD Primary Care Provider Jacob Sharp SUPERVISOR CIGAR MAKING MACHINE Unavailable Thursday, Toya ROTOR PILOT Unavailable [phone] Shlomo Hu MD Unavailable [phone] Shante Kumar CONSERVATION BIOLOGY PROFESSOR-CLAIMS MANAGER Unavailable Claribel Scott RN Unavailable Jess Marsh ROTOR PILOT Unavailable Esthela Tesfaye POOLING OPERATOR Unavailable [phone] Encounter Details Date Type Department Care Team (Late st Contact Info) Description 06/04/2023 Abstract [facility] [address] [facility] 110 [place] [address] Shlomo Hu MD [address] [facility] 110 [place] [address] Social History Tobacco Use Types [...] often do you attend [facility] services? Patient declined 03/01/2023 Do you belong [...] medical care, and heating? Somewhat hard 03/01/2023 [facility] Occupat [...] SH ENDOCRINOLOGY [address] [place] [address] Tanya Lozano MD [address] [place] [address] 04/20/2025 3:00 PM EDT Office Visit [facility] [address] [place] [address] [place] [address] Sonny Rodriguez DPM 3006 [facility] 5 [place] [address] 05/04/2025 2:50 PM EDT Office Visit [facility] [address] [place] [address] [place] [address] Sonny Rodriguez DPLudmila 3006 [facility] 5 [place] [address] documented as of this encounter Visit Diagnoses Not on filedocumented in this encounter Care Teams Credit Cashier Relationship Specialty Start Date End Date Shlomo Hu MD [address] [place] [address] [place] [address] PCP - General Internal Medicine 02/15/23 [place] [address] [place] [address] PCP - [place] [employer] 08/14/23 Shlomo Hu MD [address] [place] [address] [place] [address] PCP - [place] [employer] 05/15/2407/14 Shante Kumar, CONSERVATION BIOLOGY PROFESSOR-CLAIMS MANAGER [address] [place] [address] [place] [address] PCP - Denzel Mckeon 07/15/24 ThursdayToya LPN [address] [place] [address] Licensed Practical Nurse Family Medicine 01/19/24 10/21/24 Claribel Scott, RN [address] [place] [address] Licensed Practical Nurse Family Medicine 10/21/24 12/06/24 Jess Marsh LPN [address] [facility] 110 [place] [address] 12/06/24 Esthela Tesfaye, KIRA [address] [place] [address] Carrot Harvester Family Medicine 02/03/25 documented as of this encounter
--- OUTSIDE RECORDS SUMMARY | 2025-03-28 09:17 | XMS_ITS | Encounter Summary ---
Author Organization [facility] Address [facility] [place] [address] Care Team Providers Care Advertising Layout Worker Name Role Phone Siobhan Sharpjusto Unavailable Rasheeda Newton RD Unavailable [phone] Unavailable [phone] Fritz HENDERSON MD, Shlomo Momin Primary Care Provider [phone] Yuan Miller MD, PhD Unavailable [phone] Source Comments In the event this information is protected by the Federal Confidentiality of Alcohol and Drug AbusePatient Records regulations: The Federal rules restrict any use of the information to criminally investigate or prosecute any alcohol or drug abuse patient.[facility] Encounter Details Date Type Department Care Team (Late st Contact Info) Description 05/18/2024 Patient Msg Neurology [address] [place], [place] [phone] Provider, [facility] Ketamine infusions Social History Tobacco [...] in a correction (including now)? No 02/16/2024 Area Deprivation Index Answer Date Reagan rded National Score (1-100), lower number is lower ri sk 63 03/05/2023 State Score (1-10), lower number is lower risk 4 03/05/2023 Data from: https://www.neighborhoodatlas.medicine.[facility].edu/. Last address used for calculation [address] [...] EDT Office Visit General Surgery [address] [place] [address] Michael Mora PA-C [address] [place] [phone] follow up- add on ok'd by Michael 04/07/2025 1:00 PM EDT [facility] [address] [place] [phone] Agatha Kim PSYD [address] [place] [id number] 04/19/2025 11:00 AM EDT [facility] Neurological [facility] [address] [place] [phone] Joann Loera APRN.PROFESSIONAL SKATER [address] [place] [address] Cognitive movement issues 04/21/2025 8:30 AM T [facility] Nutrition Therapy [address] [place] [phone] [address] [place] [phone] f/u TF forula tolerance and hydration 05/29/2025 9:00 AM T [facility] Gastroenterology [address] [address] Johanna Martinez MD [facility] [address] [place], [place] [phone] 3 month follow up 06/28/2025 10:00 AM [facility] Neurology Pain [address] [place] [phone] [place] [address] [place] [address] Follow up for pain documented as of this encounter Visit Diagnoses Not on filedocumented in this encounter Additional Health Concerns Infection Onset Date Last Indicated Resolved Time COVID-19 Rule-Out 07/29/2024 07/29/2024 07/29/2024 7:20 PM EST documented as of this encounter Care Teams Advertising Layout Worker Relationship Specialty Start Date End Date Shlomo Hu II, MD [address] [facility] [address] [place] [address] PCP - General Internal Medicine 10/06/23 Jacob Sharp [address] [facility] [place] [address] Referring 04/30/[address] [place] [phone] Registered Dietitian Nutrition 06/24/[address] [place] [phone] Registered Dietitian Nutrition 08/27/23 Yuan Miller MD, PhD [facility] [place] [phone] Surgeon General Surgery 02/03/24 documented as of this encounter
--- OUTSIDE RECORDS SUMMARY | 2025-03-28 09:17 | XMS_ITS | Encounter Summary ---
Author Organization [facility] Address [facility] [place] [address] Care Team Providers Care Fence Maker Name Role Phone Siobhan Sharpjusto Unavailable Rasheeda Newton RD Unavailable [phone] Unavailable [phone] Fritz HENDERSON MD, Shlomo Momin Primary Care Provider [phone] Yuan Miller MD, PhD Unavailable [phone] Source Comments In the event this information is protected by the Federal Confidentiality of Alcohol and Drug AbusePatient Records regulations: The Federal rules restrict any use of the information to criminally investigate or prosecute any alcohol or drug abuse patient.[facility] Encounter Details Date Type Department Care Team (Late st Contact Info) Description 06/10/2024 Patient Msg Neurology [address] [place], [place] [phone] Provider, [facility] Ketamine Social History Tobacco Use [...] risk 4 03/05/2023 Data from: https://www.neighborhoodatlas.medicine.[facility].edu/. Last address used for calculation [address] [...] AM EDT Office Visit General Surgery [address] [place] [address] Michael Mora PA-C [address] [place] [phone] follow up- add on ok'd by Michael 04/07/2025 1:00 PM EDT [facility] [address] [place] [phone] Agatha Kim PSYD [address] [place] [phone] 04/19/2025 11:00 AM EDT [facility]rological [facility] [address] [place] [phone] Joann Loera APRN.BUFFERER [address] [place] [address] Cognitive movement issues 04/21/2025 8:30 AM T [facility] Nutrition Therapy [address] [place] [phone] T[address] [place] [id number] f/u TF forula tolerance and hydration 05/29/2025 9:00 AM T [facility] Gastroenterology [address] [address] Johanna Martinez MD [facility] [address] [place], [place] [address] 3 month follow up 06/28/2025 10:00 AM [facility] Neurology Pain [address] [place] [phone] [place] [address] [place] [address] Follow up for pain documented as of this encounter Visit Diagnoses Not on filedocumented in this encounter Additional Health Concerns Infection Onset Date Last Indicated Resolved Time COVID-19 Rule-Out 07/29/2024 07/29/2024 07/29/2024 7:20 PM EST documented as of this encounter Care Teams Fence Maker Relationship Specialty Start Date End Date Shlomo Hu II, MD [address] [facility] [address] [place] [address] PCP - General Internal Medicine 10/06/23 Jacob Sharp [address] [facility] [place], [place] [id number] Referring 04/30/[address] [place] [phone] Registered Dietitian Nutrition 06/24/[address] [place] [phone] Registered Dietitian Nutrition 08/27/23 Yuan Miller MD, PhD [facility] [place] [phone] Surgeon General Surgery 02/03/24 documented as of this encounter
--- OUTSIDE RECORDS SUMMARY | 2025-03-28 09:17 | XMS_ITS | Encounter Summary ---
Author Organization [facility] tem Address [id number] [address] [place] [address] Care Team Providers Care Retail Route Supervisor Name Role Phone JerichoSkylar leiva Julia GARCIA-BUSINESS INFORMATION MANAGER Primary Care Provider + Encounter Details Date Type Department Care Team (Late st Contact Info) Description 12/03/2023 Orders Only [facility] Internal Medicine - Family Medicine [address] [place] [phone] Sandy Sotelo CMA Nausea and vomiting in adult; Severe protein-calorie malnutrition (CMS-HCC) Social History Tobacco Use Types Packs/Day Years [...] do you attend chur or moravian services? Patient declined 05/08/2022 Do you belong [...] care, and heating? Not hard at all 12/04/2023 PHQ-2 Answer Date Recorded Total Score 0 12/03/2023 [facility] [place] of Occupat ional Health - Occupational Stress [...] medical appointments or from getting medications? No 11/13 In the past 12 months, has l ack of transportation kept you from meetings, work, or from getting things needed for daily living? No 12/04/2023 Housing Instability Answer Date Recorde d Are you worried or concerned that in the next two months you may not have stable housing that you own, rent or stay in as a part of a household? No 12/04/2023 Childcare Answer Date Recorded Do problems getting child ca re make it difficult for you to work or study? No 05/08/2022 Employment Answer Date Recorded Do you need help finding a [facility] career center and/or a training program? No 05/08/2022 Hunger Screening Answer Date Recorded Within the past 12 months we worried whether our food would run out before we got money to buy more. Never True 12/04/2023 Within the past 12 months th e food we bought just didn't last and we didn't have money to get more. Never True 12/04/2023 Purpose - Life Answer Date Recorded I [...] safe discharge to home General Yes Soledad Oliva RN Note: Evaluation of progress towards goal: safe transition from hospital to home with family support. documented as of this encounter Procedures Procedure Name Priority Date/Time Associated Diagnosis Comments MULTIPLE LABS Routine 12/02/2023 10:31 AM EDT VITAMIN D 25 HYDROXY Routine 12/02/2023 Severe protein-calorie malnutrition (CMS-HCC) PHOSPHORUS Routine 12/02/2023 Severe protein-calorie malnutrition (CMS-HCC) MAGNESIUM Routine 12/02/2023 Severe protein-calorie malnutrition (CMS-HCC) COMPREHENSIVE METABOLIC PANEL Routine 12/02/2023 Nausea and vomiting in adult documented in this encounter Results * Multiple labs (12/02/2023 10:31 AM EDT) Skylar SZYMANSKI MA IMAGING Final Re sult MANUALLY TRANSCRIBED RESULTS * Magnesium (12/02/2023) Magnesium 2.2 SUNQUEST Blood 12/02/2023 Skylar Echavarria APRN-BUSINESS INFORMATION MANAGER LAB BLOOD ORDERABLES Fin al Result Performing Organization Address City/[facility]/ZIP Co de Phone Number SUNQUEST * Phosphorus (12/02/2023) Phosphorus 2.7 SUNQUEST Blood 12/02/2023 us Skylar Echavarria COVERED BUTTON MAKER-BUSINESS INFORMATION MANAGER LAB BLOOD ORDERABLES Fin al Result Performing Organization Address City/[facility] Co de Phone Number SUNQUEST * Vitamin D 25 hydroxy (12/02/2023) External Vitamin D 25-Hydroxy 11.3 SUNQUEST 12/02/2023 Skylar Echavarria COVERED BUTTON MAKER-OneTouch LAB BLOOD ORDERABLES Fin al Result Performing Organization Address [facility] de Phone Number SUNQUEST * Comprehensive metabolic panel (12/02/2023) External Albumin 3.5 SUNQUEST External Alt Sgpt 19 SUNQUEST External Anion Gap 9.6 SUNQUEST External Ast 17 SUNQUEST External Blood Urea Nitrogen Bun 6 SUNQUEST External Calcium Ca 8.2 SUNQUEST External Chloride 102 SUNQUEST External Co2 / Carbon Dioxide 29.2 SUNQUEST External Creatinine 0.55 SUNQUEST External Gfr Non Amer >60.0 SUNQUEST External Alkaline Phosphatase 2.7 SUNQUEST External Glucose Fasting Or Random (Fbs) 93 SUNQUEST External Potassium K 3.8 SUNQUEST External Sodium Na 137 SUNQUEST Total Bilirubin 0.4 SUNQUEST External Total Protein 6.0 SUNQUEST Blood 12/02/2023 Skylar Echavarria COVERED BUTTON MAKER-OneTouch LAB BLOOD ORDERABLES Fin al Result Performing Organization Address [facility] de Phone Number SUNQUEST documented in this encounter Visit Diagnoses Diagnosis Nausea and vomiting in adult Severe protein-calorie malnutrition Other severe protein-calorie malnutrition documented in this encounter Additional Health Concerns Assessment Noted Time PHQ-9 Depression Total Score: 0 12/03/19 11:11 AM EDT A Body Mass Index follow-up plan has been documented for the patient 05/13/2022 11:13 AM EDT documented as of this encounter Care Teams Retail Route Supervisor Relationship Specialty Start Date End Date Skylar Echavarria, COVERED BUTTON MAKER-BUSINESS INFORMATION MANAGER [address] [place] [address] PCP - General Internal Medicine 11/18/23 documented as of this encounter
--- OUTSIDE RECORDS SUMMARY | 2025-03-28 09:17 | XMS_ITS | Encounter Summary ---
Author Organization [facility] Address [address] [place] [address] Care Team Providers Care Clinical Research Analyst Name Role Phone Jacob Sharp Unavailable Rasheeda Newton RD Unavailable [phone] Unavailable [phone] Fritz HENDERSON MD, Shlomo Momin Primary Care Provider [phone] Yuan Miller MD, PhD Unavailable [phone] Source Comments In the event this information is protected by the Federal Confidentiality of Alcohol and Drug AbusePatient Records regulations: The Federal rules restrict any use of the information to criminally investigate or prosecute any alcohol or drug abuse patient.[facility] Encounter Details Date Type Department Care Team (Late st Contact Info) Description 06/13/2024 Get Medical Advice General Surgery [address] [place] [address] Yuan Miller MD, PhD [address] [place] [address] Leakage Social History Tobacco Use Types Packs/Day Years [...] slept in a snf (including now)? No 02/16/2024 Area Deprivation Index Answer Date Reagan rded National Score (1-100), lower number is lower ri sk 63 03/05/2023 State Score (1-10), lower number is lower risk 4 03/05/2023 Data from: https://www.neighborhoodatlas.medicine.[facility].edu/. Last address used for calculation [address] [...] AM EDT Office Visit General Surgery [address] [id number] Michael Mora PA-C [address] [place] [address] follow up- add on ok'd by Michael 04/07/2025 1:00 PM EDT [facility] [address] [phone] Agatha Kim PSYD [address] [place] [address] 04/19/2025 11:00 AM EDT [facility] Neurological Judaism [address] [place] [address] Joann Loera APRN.MEDICAL RADIATION DOSIMETRIST [address] [place] [address] Cognitive movement issues 04/21/2025 8:30 AM EDT [facility] Nutrition Therapy [address] [phone] Tiffany Banks, RD [address] [id number] f/u TF forula tolerance and hydration 05/29/2025 9:00 AM EDT [facility] Gastroenterology [address] [id number] Johanna Martinez MD [facility] [address] [place], [place] [phone] 3 month follow up 06/28/2025 10:00 AM T [facility] Neurology Pain [address] [place] [address] [place] [address] [place] [address] Follow up for pain documented as of this encounter Visit Diagnoses Not on filedocumented in this encounter Additional Health Concerns Infection Onset Date Last Indicated Resolved Time COVID-19 Rule-Out 07/29/2024 07/29/2024 07/29/2024 7:20 PM EST documented as of this encounter Care Teams Clinical Research Analyst Relationship Specialty Start Date End Date Shlomo Hu II, MD [address] [place] [address] PCP - General Internal Medicine 10/06/23 Jacob Sharp [address] [place] [address] Referring 04/30/[address] [phone] Registered Dietitian Nutrition 06/24/[address] [phone] Registered Dietitian Nutrition 08/27/23 Yuan Miller MD, PhD [address] [place] [address] Surgeon General Surgery 02/03/24 documented as of this encounter
--- OUTSIDE RECORDS SUMMARY | 2025-03-28 09:17 | XMS_ITS | Encounter Summary ---
Author Organization [facility] Address [address] [place] [address] Care Team Providers Care Readers' Advisory Service Librarian Name Role Phone Siobhan Sharpjusto Unavailable Rasheeda Newton RD Unavailable [phone] Unavailable [phone] Fritz HENDERSON MD, Shlomo Momin Primary Care Provider [phone] Yuan Miller MD, PhD Unavailable [phone] Source Comments In the event this information is protected by the Federal Confidentiality of Alcohol and Drug AbusePatient Records regulations: The Federal rules restrict any use of the information to criminally investigate or prosecute any alcohol or drug abuse patient.[facility] Encounter Details Date Type Department Care Team (Late st Contact Info) Description 06/14/2024 Patient Wag Internal Medicine [place] [phone] Provider, Ccf Appointment cancelation Social History Tobacco Use Types Packs/Day Years [...] slept in a mcfp (including now)? No 02/16/2024 Area Deprivation Index Answer Date Reagan rded National Score (1-100), lower number is lower ri sk 63 03/05/2023 State Score (1-10), lower number is lower risk 4 03/05/2023 Data from: https://www.neighborhoodatlas.medicine.[facility].edu/. Last address used for calculation [...] AM EDT Office Visit General Surgery [address] [place] [address] Michael Mora PA-C [address] [place] [address] follow up- add on ok'd by Michael 04/07/2025 1:00 PM EDT [facility] [address] [phone] Agatha Kim PSYD [address] [id number] 04/19/2025 11:00 AM EDT [facility] Neurological Jew [address] [phone] Joann Loera APRN.CUTTING TABLE OPERATOR [address] [place] [address] Cognitive movement issues 04/21/2025 8:30 AM EDT [facility] Nutrition Therapy [address] [phone] [address] [place] [address] f/u TF forula tolerance and hydration 05/29/2025 9:00 AM EDT [facility] Gastroenterology [address] [address] Johanna Martinez MD [facility] [address] [place], [place] [id number] 3 month follow up 06/28/2025 10:00 AM EDT [facility] Neurology Pain [address] [place] [address] [place] [address] [place] [address] Follow up for pain documented as of this encounter Visit Diagnoses Not on filedocumented in this encounter Additional Health Concerns Infection Onset Date Last Indicated Resolved Time COVID-19 Rule-Out 07/29/2024 07/29/2024 07/29/2024 7:20 PM EST documented as of this encounter Care Teams Readers' Advisory Service Librarian Relationship Specialty Start Date End Date Shlomo Hu II, MD [address] [facility] [address] [place] [address] PCP - General Internal Medicine 10/06/23 Jacob Sharp [address] [place] [address] Referring 04/30/[address] [phone] Registered Dietitian Nutrition 06/24/[address] [place] [address] Registered Dietitian Nutrition 08/27/23 Yuan Miller MD, PhD [facility]0 [place] [address] Surgeon General Surgery 02/03/24 documented as of this encounter
--- OUTSIDE RECORDS SUMMARY | 2025-03-28 09:17 | XMS_ITS | Encounter Summary ---
Author Organization [facility] Address [address] [facility] [place] [address] Care Team Providers Care Carton Forming Machine Operator Name Role Phone Shlomo Hu MD Primary Care Provider Jacob Sharp IRIDOLOGIST Unavailable [phone] Thursday, Toya ANNEALING OPERATOR Unavailable [phone] Shlomo Hu MD Unavailable [phone] Shante Kumar CHANGE MANAGEMENT SPECIALIST-ELECTRIC DOLLY OPERATOR Unavailable Claribel Scott RN Unavailable Maximo Jess ANNEALING OPERATOR Unavailable Esthela Tesfaye LEAN CONSULTANT Unavailable Encounter Details Date Type Department Care Team (Late st Contact Info) Description 06/25/2023 Abstract [facility] 112 [facility] [address] [place] [address] Shlomo Hu MD 112 [facility] 110 [place] [address] Social History Tobacco Use Types [...] often do you attend [facility] or yazdanism services? Patient declined 03/01/2023 Do you belong [...] medical care, and heating? Somewhat hard 03/01/2023 [facility] of Occupat ional Health [...] suspected to have Coronavirus/COVID-19? No / Unsure 06/24/2023 9:36 AM EDT documented as of this encounter Plan of Treatment Upcoming Encounters Date Type Department Care Team (Late st Contact Info) Description 04/12/2025 9:50 AM EDT Office Visit [facility] [address] [place] [address] Tanya Lozano MD [address] [place] [address] 04/20/2025 3:00 PM EDT Office Visit [facility] P[facility] [address] [place] [address] Sonny Rodriguez DPM [address] [facility] 5 [place] [address] 05/04/2025 2:50 PM EDT Office Visit [facility] [address] [place] [address] Sonny Rodriguez DPLudmila [address] [facility] 5 [place] [address] documented as of this encounter Visit Diagnoses Not on filedocumented in this encounter Care Teams Carton Forming Machine Operator Relationship Specialty Start Date End Date Shlomo Hu MD [address] [place] [address] PCP - General Internal Medicine 02/15/23 [place] [address] [place] [address] PCP - [place] [employer] 08/14/23 Shlomo Hu MD [address] [place] [address] PCP - [place] [employer] 05/15/2407/14 Shante Kumar, CHANGE MANAGEMENT SPECIALIST-ELECTRIC DOLLY OPERATOR [address] [place] [address] PCP - Denzel Mckeon 07/15/24 ThursdayToya LPN [address] [place] [address] Licensed Practical Nurse Family Medicine 01/19/24 10/21/24 Claribel Scott, RN [address] [place] [address] Licensed Practical Nurse Family Medicine 10/21/24 12/06/24 Jess Marsh LPN [address] [facility] [address] [place] [address] 12/06/24 Esthela Tesfaye, KIRA [address] [place] [address] Cigarette Vendor Family Medicine 02/03/25 documented as of this encounter
--- OUTSIDE RECORDS SUMMARY | 2025-03-28 09:17 | XMS_ITS | Encounter Summary ---
Author Organization [facility] tem Address [facility] [id number] [address] [place] [address] Care Team Providers Care Survey Analyst Name Role Phone Gamal Echavarriagarth Dumont APRN-RISK CONTROL CONSULTANT Primary Care Provider + Encounter Details Date Type Department Care Team (Late st Contact Info) Description 10/27/2023 Documentation [facility] - PICC [address] [place] [address] Imer Yang, RN Social History Tobacco Use [...] week 05/08/2022 How often do you attend [facility] or religion services? Patient declined 05/08/2022 Do [...] Answer Date Recorded Total Score 0 05/08/2022 [facility] of Occupat ional Health - Occupational [...] Recorded Do you need help finding a [facility] career center and/or a training program? [...] documented as of this encounter Care Teams Survey Analyst Relationship Specialty Start Date End Date Skylar Echavarria APRN-RISK CONTROL CONSULTANT [address] [place] [address] PCP - General Internal Medicine 11/18/23 documented as of this encounter
--- OUTSIDE RECORDS SUMMARY | 2025-03-28 09:17 | XMS_ITS | Encounter Summary ---
Author Organization [facility] tem Address [id number] [address] [place] [address] Care Team Providers Care Managing Partner Digital Content Marketing [place] Name Role Phone Skylar Echavarria ORTHODONTIC TECHNICIAN-JOINT MACHINE OPERATOR Primary Care Provider + Encounter Details Date Type Department Care Team (Late st Contact Info) Description 11/20/2023 Orders Only [facility] Internal Medicine - Family Medicine [address] [place] [address] Skylar Echavarria, ORTHODONTIC TECHNICIAN-JOINT MACHINE OPERATOR [address] [place] [address] Community acquired bacterial pneumonia Social History Tobacco Use Types Packs/Day Years [...] PHQ-2 Answer Date Recorded Total Score 0 11/18/2023 [facility] [place] of Occupat ional Health - Occupational Stress [...] Recorded Do you need help finding a [employer] career center and/or a training program? No 05/08/2022 Hunger Screening Answer Date Recorded Within the past 12 months we worried whether our food would run out before we got money to buy more. Never True 11/18/2023 Within the past 12 months th e food we bought just didn't last and we didn't have money to get more. Never True 11/18/2023 Purpose - Life Answer Date Recorded I [...] Priority Date/Time Associated Diagnosis Comments XR CHEST 2 VWS Routine 11/20/2023 1:03 PM EST Community acquired bacterial pneumonia documented in this encounter Results * X-ray chest 2 views (11/20/2023 1:03 PM EST) Anatomical Region Laterality Modality Body, Chest N/A Computed Radiogr aphy Skylar SZYMANSKI IMG DIAGNOSTIC IMAGING O RDERABLES Final Result documented in this encounter Visit Diagnoses Diagnosis Community acquired bacterial pneumonia Unspecified bacterial pneumonia documented in this encounter Additional Health Concerns Assessment Noted Time PHQ-9 Depression Total Score: 0 11/18/19 24 9:33 AM EST A Body Mass Index follow-up plan has been documented for the patient 05/13/2022 11:13 AM EDT documented as of this encounter Care Teams Managing Partner Digital Content [employer] [place] Relationship Specialty Start Date End Date Skylar Echavarria APRN-CNP [address] [place] [address] PCP - General Internal Medicine 11/18/23 documented as of this encounter
--- OUTSIDE RECORDS SUMMARY | 2025-03-28 09:17 | XMS_ITS | Encounter Summary ---
Author Organization [facility] Address [address] [place] [address] Care Team Providers Care Coater Operator Name Role Phone Shlomo Hu MD Primary Care Provider [phone] Jacob Sharp ETL CONSULTANT Unavailable Thursday, Toya SURVEYING OR SPATIAL SCIENCE TECHNICIAN Unavailable [phone] Shlomo Hu MD Unavailable [phone] Shante Kumar BAR TACKER SEWING MACHINE-BARN AND PROPERTY MANAGER Unavailable Claribel Scott RN Unavailable Jess Marsh SURVEYING OR SPATIAL SCIENCE TECHNICIAN Unavailable Esthela Tesfaye DENTAL HYGIENIST MOBILE COORDINATOR Unavailable [phone] Encounter Details Date Type Department Care Team (Late st Contact Info) Description 08/10/2023 Clinisync Result Encounter [facility] External Department Unsolicited [...] How often do you attend chur or yarsanism services? Patient declined 03/01/2023 Do you belong [...] suspected to have Coronavirus/COVID-19? No / Unsure 08/12/2023 10:02 AM EST documented as of this encounter Plan of Treatment Upcoming Encounters Date Type Department Care Team (Late st Contact Info) Description 04/12/2025 9:50 AM EDT Office Visit [facility] [address] [place] [address] Tanya Lozano MD [address] [place] [address] 04/20/2025 3:00 PM EDT Office Visit [facility] [address] [place] [address] Sonny Rodriguez, DPM [address] [place] [address] 05/04/2025 2:50 PM EDT Office Visit [facility] [address] [place] [address] Sonny Rodriguez, DPM [address] [place] [address] documented as of this encounter Procedures Procedure Name Priority Date/Time Associated Diagnosis Comments ECG 12-LEAD 08/10/2023 9:09 PM EST documented in this encounter Results * ECG 12 lead (08/10/2023 9:09 PM EST) 08/10/2023 9:09 PM EST Narrative [facility] - 08/26/2023 7:51 AM EST Ventricular Rate : 67 BPM Atrial Rate : 67 BPM P-R Interval : 168 ms QRS Duration : 76 ms Q-T Interval : 380 ms QTC Calculation(Bazett) : 401 ms Calculated P [place] : 35 degrees Calculated R [place] : 19 degrees Calculated T [place] : 14 degrees NORMAL SINUS RHYTHM LOW VOLTAGE BORDERLINE ECG Confirmed by MD DENI, PhD, LINDSAY ([id number]) on 08/26/2023 7:51:26 AM NAME : MELINA TAVERAS PID : [id number] : 1975 Gender : Female Race : ORD : [id number] Procedure Date : Aug 10 2023 21:09:02 Edit Date : Aug 26 2023 07:51:27 Diagnosis: NORMAL SINUS RHYTHM LOW VOLTAGE BORDERLINE ECG Confirmed by MD DENI, PhD, LINDSAY ([id number]) on 08/26/2023 7:51:26 AM Test Reason : Check QT Location : 84 : H81 H081-22 Overread By : MD DENI, PhD,LINDSAY Edited By : MD DENI, PhD,LINDSAY Referred By : HAMLET BARBOSA Acquired by : BUDDY GUSTAFSON Procedure Note Radiology, Radiologist, MD - 08/26/2023 Ventricular Rate : 67 BPM Atrial Rate : 67 BPM P-R Interval : 168 ms QRS Duration : 76 ms Q-T Interval : 380 ms QTC Calculation(Bazett) : 401 ms Calculated P [place] : 35 degrees Calculated R [place] : 19 degrees Calculated T [place] : 14 degrees NORMAL SINUS RHYTHM LOW VOLTAGE BORDERLINE ECG Confirmed by MD DENI, PhD, LINDSAY ([id number]) on 08/26/2023 7:51:26 AM NAME : MELINA TAVERAS PID : [id number] : 1975 Gender : Female Race : ORD : [id number] Procedure Date : Aug 10 2023 21:09:02 Edit Date : Aug 26 2023 07:51:27 Diagnosis: NORMAL SINUS RHYTHM LOW VOLTAGE BORDERLINE ECG Confirmed by MD DENI, PhD, LINDSAY ([id number]) on 08/26/2023 7:51:26 AM Test Reason : Check QT Location : 84 : H81 H081-22 Overread By : MD DENI, PhD,LINDSAY Edited By : MD DENI, PhD,LINDSAY Referred By : HAMLET BARBOSA Acquired by : BUDDY GUSTAFSON us Generic External Data Provider ECG ORDERABLES F inal Result [facility] documented in this encounter Visit Diagnoses Not on filedocumented in this encounter Care Teams Coater Operator Relationship Specialty Start Date End Date Shlomo Hu MD [address] [facility] [address] [place] [address] PCP - General Internal Medicine 02/15/23 [place] [address] [facility] [place] [address] PCP - [place] [employer] 08/14/23 Shlomo Hu MD [address] [facility] [address] [place] [address] PCP - [place] [employer] 05/15/2407/14 Shante Kumar, BAR TACKER SEWING MACHINE-BARN AND PROPERTY MANAGER [address] [facility] [address] [place] [address] PCP - [place] [employer] 07/15/24 ThursdayToya LPN [address] [facility] [address] [place] [address] Licensed Practical Nurse Family Medicine 01/19/24 10/21/24 Claribel Scott, RN [address] [place] [address] Licensed Practical Nurse Family Medicine 10/21/24 12/06/24 Jess Marsh LPN [address] [facility] [address] [place] [address] 12/06/24 Esthela Tesfaye, DENTAL HYGIENIST MOBILE COORDINATOR [address] [place] [address] Gill Box Tender Family Medicine 02/03/25 documented as of this encounter
--- OUTSIDE RECORDS SUMMARY | 2025-03-28 09:17 | XMS_ITS | Encounter Summary ---
Author Organization [facility] Address [address] [facility] [place] [address] Care Team Providers Care Firewall Engineer Name Role Phone Shlomo Hu MD Primary Care Provider Jacob Sharp SHIPPING CHECKER Unavailable [phone] Thursday, Toya TAX SERVICES PROFESSIONAL Unavailable [phone] Shlomo Hu MD Unavailable [phone] Shante Kumar QUALITY LAB TECHNICIAN-MINERAL MIXER Unavailable Claribel Scott RN Unavailable Jess Marsh TAX SERVICES PROFESSIONAL Unavailable Esthela Tesfaye ACTIVITY COORDINATOR Unavailable Reason for Visit * Reason Comments Med Refill Encounter Details Date Type Department Care Team (Late st Contact Info) Description 08/20/2023 Refill [facility] [address] [facility] [address] [place] [address] Shante Kumar, QUALITY LAB TECHNICIAN-MINERAL MIXER [address] [facility] 160 [place] [address] Anxiety Social History Tobacco Use Types Packs/Day Years [...] do you attend chur or synagogue services? Patient declined 03/01/2023 Do [...] medical care, and heating? Somewhat hard 03/01/2023 [facility] [place] [facility]at [facility] - Occupational Stress [...] slept in a fci (including now)? No 03/01/2023 Housing Stability Vital [...] ENDOCRINOLOGY [address] [place] [address] Tanya Lozano MD [address] [place] [address] 04/20/2025 3:00 PM EDT Office Visit [facility] [address] [place] [address] Sonny Rodriguez DPM 3006 [facility] 5 [place] [address] 05/04/2025 2:50 PM EDT Office Visit [facility] [address] [place] [address] Sonny Rodriguez DPM [address] [address] documented as of this encounter Visit Diagnoses Diagnosis Anxiety Anxiety state, unspecified documented in this encounter Care Teams Firewall Engineer Relationship Specialty Start Date End Date Shlomo Hu MD [address] [place] [address] PCP - General Internal Medicine 02/15/23 [place] [address] [place] [address] PCP - [place] [employer] 08/14/23 Shlomo Hu MD [address] [place] [address] PCP - [place] [employer] 05/15/2407/14 Shante Kumar, QUALITY LAB TECHNICIAN-MINERAL MIXER [address] [place] [address] PCP - [place] [employer] 07/15/24 ThursdayToya LPN [address] [place] [address] Licensed Practical Nurse Family Medicine 01/19/24 10/21/24 Claribel Scott, PIETRO [address] [place] [address] Licensed Practical Nurse Family Medicine 10/21/24 12/06/24 Jess Marsh LPN [address] [facility] 110 [place] [address] 12/06/24 Esthela Tesfaye, ACTIVITY COORDINATOR [address] [facility] [place] [address] Director Of Infection Control Family Medicine 02/03/25 documented as of this encounter
--- OUTSIDE RECORDS SUMMARY | 2025-03-28 09:17 | XMS_ITS | Encounter Summary ---
Author Organization [facility] Address [address] [place], [place] [address] Care Team Providers Care Assistant Farm Operations Manager Name Role Phone Jacob Sharp Unavailable Rasheeda Newton RD Unavailable [phone] Unavailable [phone] Fritz HENDERSON MD, Shlomo Momin Primary Care Provider [phone] Yuan Miller MD, PhD Unavailable [phone] Source Comments In the event this information is protected by the Federal Confidentiality of Alcohol and Drug AbusePatient Records regulations: The Federal rules restrict any use of the information to criminally investigate or prosecute any alcohol or drug abuse patient.[facility] Encounter Details Date Type Department Care Team (Late st Contact Info) Description 06/01/2024 Get Medical Advice PAIN [place] [address] [place] [address] Mary Arthur APRN.ANIMAL TRAINER [address] [place] [address] Meds Social History Tobacco Use Types Packs/Day [...] risk 4 03/05/2023 Data from: https://www.neighborhoodatlas.medicine.[facility].edu/. Last address used for calculation [address] [...] AM EDT Office Visit General Surgery [address] [id number] Michael Mora PA-C [address] [place] [address] follow up- add on ok'd by Michael 04/07/2025 1:00 PM EDT [facility] [address] [place] [address] Agatha Kim, DILAN [address] [place] [address] 04/19/2025 11:00 AM EDT [facility] Neurological Buddhist [address] [place] [address] Joann Loera APRN.ANIMAL TRAINER [address] [place] [address] Cognitive movement issues 04/21/2025 8:30 AM EDT [facility] Nutrition Therapy [address] [place] [address] 1948[address] Tiffany Banks, RD [address] [place] [address] f/u TF forula tolerance and hydration 05/29/2025 9:00 AM EDT [facility] Gastroenterology [address] [id number] Johanna Martinez MD [facility] [address] [place], [place] [id number] 3 month follow up 06/28/2025 10:00 AM T [facility] Neurology Pain [address] [id number] [place] [address] [place] [address] [id number] Follow up for pain documented as of this encounter Visit Diagnoses Not on filedocumented in this encounter Additional Health Concerns Infection Onset Date Last Indicated Resolved Time COVID-19 Rule-Out 07/29/2024 07/29/2024 07/29/2024 7:20 PM EST documented as of this encounter Care Teams Assistant Farm Operations Manager Relationship Specialty Start Date End Date Shlomo Hu II, MD [address] [place] [address] PCP - General Internal Medicine 10/06/23 Jacob Sharp [address] [place] [address] Referring 04/30/[address] [place] [address] Registered Dietitian Nutrition 06/24/[address] [place] [address] Registered Dietitian Nutrition 08/27/23 Yuan Miller MD, PhD [address] [place] [address] Surgeon General Surgery 02/03/24 documented as of this encounter
--- OUTSIDE RECORDS SUMMARY | 2025-03-28 09:17 | XMS_ITS | Encounter Summary ---
Author Organization [facility] Address [address] [place] [address] Care Team Providers Care Third Cook Name Role Phone Jacob Sharp Unavailable Rasheeda Newton RD Unavailable [phone] Unavailable [phone] Fritz HENDERSON MD, Shlomo Momin Primary Care Provider [phone] Yuan Miller MD, PhD Unavailable [phone] Source Comments In the event this information is protected by the Federal Confidentiality of Alcohol and Drug AbusePatient Records regulations: The Federal rules restrict any use of the information to criminally investigate or prosecute any alcohol or drug abuse patient.[facility] Encounter Details Date Type Department Care Team (Late st Contact Info) Description 06/20/2024 Patient Msg General Surgery [address] [place], [place] [id number] Provider, Ccf appointment has been scheduled for 06/30/24 with Social History Tobacco Use Types Packs/Day Years [...] a skilled nursing (including now)? No 02/16/2024 Area Deprivation Index Answer Date Reagan rded National Score (1-100), lower number is lower ri sk 63 03/05/2023 State Score (1-10), lower number is lower risk 4 03/05/2023 Data from: https://www.neighborhoodatlas.medicine.[facility].edu/. Last address used for calculation [address] [...] Office Visit General Surgery [address] [place] [address] [id number] Michael Mora PA-C [address] [place] [address] follow up- add on ok'd by Michael 04/07/2025 1:00 PM EDT [facility] [address] [place] [address] Agatha Kim PSYD [address] [id number] 04/19/2025 11:00 AM EDT [facility] Neurological Mormon [address] [place] [address] Joann Loera APRN.CONTACT WORKER LITHOGRAPHY [address] [place] [address] Cognitive movement issues 04/21/2025 8:30 AM EDT [facility] Nutrition Therapy [address] [phone] Tiffany Banks, RD [address] [place] [id number] f/u TF forula tolerance and hydration 05/29/2025 9:00 AM EDT [facility] Gastroenterology [address] [phone] Johanna Martinez MD [facility] [address] [place], [place] [address] 3 month follow up 06/28/2025 10:00 AM EDT [facility] Neurology Pain [address] [place] [address] [place] [address] [place] [address] Follow up for pain documented as of this encounter Visit Diagnoses Not on filedocumented in this encounter Additional Health Concerns Infection Onset Date Last Indicated Resolved Time COVID-19 Rule-Out 07/29/2024 07/29/2024 07/29/2024 7:20 PM EST documented as of this encounter Care Teams Third Cook Relationship Specialty Start Date End Date Shlomo Hu II, MD [address] [facility] [address] [place] [address] PCP - General Internal Medicine 10/06/23 Jacob Sharp [address] [place] [address] Referring 04/30/[address] [place] [phone] Registered Dietitian Nutrition 06/24/[address] [place] [address] Registered Dietitian Nutrition 08/27/23 Yuan Miller MD, PhD [address] [place] [address] Surgeon General Surgery 02/03/24 documented as of this encounter
--- OUTSIDE RECORDS SUMMARY | 2025-03-28 09:17 | XMS_ITS | Encounter Summary ---
Author Organization [facility] Address [address] [place] [address] Care Team Providers Care Manager Food Safety Name Role Phone Shlomo Hu MD Primary Care Provider [phone] Jacob Sharp SCIENCE JOB TITLES Unavailable Thursday, Toya ADVERTISING CLERK Unavailable [phone] Shlomo Hu MD Unavailable [phone] Shante Kumar POLICE COMMUNICATIONS OPERATOR-FOLDER INSPECTOR Unavailable Claribel Scott RN Unavailable [phone] Jess Marsh ADVERTISING CLERK Unavailable Esthela Tesfaye SINTER MACHINE OPERATOR Unavailable [phone] Encounter Details Date Type Department Care Team (Late st Contact Info) Description 08/07/2023 Clinisync Result Encounter [facility] External Department Unsolicited [...] How often do you attend chur or faith services? Patient declined 03/01/2023 Do you belong [...] medical care, and heating? Somewhat hard 03/01/2023 [facility] of Occupat [...] suspected to have Coronavirus/COVID-19? No / Unsure 08/03/2023 8:46 AM EST documented as of this encounter Plan of Treatment Upcoming Encounters Date Type Department Care Team (Late st Contact Info) Description 04/12/2025 9:50 AM EDT Office Visit [facility] [address] [place] [address] Tanya Lozano MD [address] [place] [address] 04/20/2025 3:00 PM EDT Office Visit [facility] [address] [place] [address] Sonny Rodriguez, DPM [address] [facility] [address] [place] [address] 05/04/2025 2:50 PM EDT Office Visit [facility] [address] [place] [address] Sonny Rodriguez, DPM 3006 [facility] 5 [place] [address] documented as of this encounter Procedures Procedure Name Priority Date/Time Associated Diagnosis Comments UPPER GI ENDOSCOPY 08/07/2023 1: 29 PM EST documented in this encounter Results * UPPER GI ENDOSCOPY (08/07/2023 1:29 PM EST) Anatomical Region Laterality Modality Other 08/07/2023 1:29 PM EST Narrative 08/07/2023 2:12 PM EST Q3 Patient Name: Melina Taveras Procedure Date: 08/07/2023 1:29 PM Date of : 1975 Admit Type: Outpatient Age: 47 Gender: Female Note Status: Finalized Attending MD: Juan F Hankins , Procedure: Upper GI endoscopy Indications: Diarrhea, Persistent vomiting of unknown cause, Status post gastric bypass Providers: Juan F Hankins Patient Profile: This is a 47 year old female. Refer to note in patient chart for documentation of history and physical. Referring Physician: Johanna Martinez MD (Referring MD) Medicines: Monitored Anesthesia Care Complications: [...] by the physician, the nurse and the production mechanic tin cans in the pre-procedure area in the endoscopy suite. Mental Status Examination: alert and oriented. Airway Examination: normal oropharyngeal airway and neck mobility. Respiratory Examination: clear to auscultation. CV Examination: normal. Prophylactic Antibiotics: The patient does not require prophylactic antibiotics. Prior Anticoagulants: The patient has taken no anticoagulant or antiplatelet agents. After reviewing the risks and benefits, the [...] continuously. The Endoscope was introduced through the left nostril, and advanced to the efferent jejunal loop. The upper GI endoscopy was accomplished without difficulty. The patient tolerated the procedure well. Moderate Sedation: MAC anesthesia was administered by the anesthesia team. Findings: The hypopharynx was normal. No gross lesions were noted in the entire esophagus. The Z-line was regular. Evidence of a gastric bypass was found. A gastric pouch with a 5.5 cm length from the GE junction to the gastrojejunal anastomosis was found. The staple line appeared intact. The gastrojejunal anastomosis was characterized by healthy appearing mucosa. This was traversed. The skaeg-vr-ybruhgz limb was characterized by healthy appearing mucosa. The examined jejunum was normal. Impression: - Normal hypopharynx. - No gross lesions in the entire esophagus. - Z-line regular. - Gastric bypass with a pouch 5.5 cm in length and intact staple line. Gastrojejunal anastomosis characterized by healthy appearing mucosa. - Normal examined jejunum. - No specimens collected. Estimated Blood Loss: Estimated blood loss was minimal. Recommendation: - Admit the patient to hospital [facility] for ongoing care. - Patient has a contact number available for emergencies. - Patient has a contact number available for emergencies. The signs and symptoms of potential delayed complications were discussed with the patient. Return to normal activities tomorrow. Written discharge instructions were provided to the patient. Procedure Code(s): --- Professional --- 60826 Diagnosis Code(s): --- Professional --- Z98.84 R19.7 R11.15 CPT copyright 2020 [employer]. All rights reserved. Attending Participation: I personally performed the entire procedure. Scope In: 1:51:03 PM Scope Out: 1:57:[address] Juan F Hankins, 08/07/2023 2:12:24 PM This report has been signed electronically by Juan F Hankins Number of Addenda: 0 Note Initiated On: 08/07/2023 1:29 PM Procedure Note Radiology, Radiologist, MD - 08/07/2023 Q3 Patient Name: Melina Taveras Procedure Date: 08/07/2023 1:29 PM Date of : 1975 Admit Type: Outpatient Age: 47 Gender: Female Note Status: Finalized Attending MD: uJan F Hankins , Procedure: Upper GI endoscopy Indications: Diarrhea, Persistent vomiting of unknown cause, Status post gastric bypass Providers: Juan F Hankins Patient Profile: This is a 47 year old female. Refer to note in patient chart for documentation of history and physical. Referring Physician: Johanna Martinez MD (Referring MD) Medicines: Monitored Anesthesia Care Complications: [...] by the physician, the nurse and the production mechanic tin cans in the pre-procedure area in the endoscopy suite. Mental Status Examination: alert and oriented. Airway Examination: normal oropharyngeal airway and neck mobility. Respiratory Examination: clear to auscultation. CV Examination: normal. Prophylactic Antibiotics: The patient does not require prophylactic antibiotics. Prior Anticoagulants: The patient has taken no anticoagulant or antiplatelet agents. After reviewing the risks and benefits, the [...] continuously. The Endoscope was introduced through the left nostril, and advanced to the efferent jejunal loop. The upper GI endoscopy was accomplished without difficulty. The patient tolerated the procedure well. Moderate Sedation: MAC anesthesia was administered by the anesthesia team. Findings: The hypopharynx was normal. No gross lesions were noted in the entire esophagus. The Z-line was regular. Evidence of a gastric bypass was found. A gastric pouch with a 5.5 cm length from the GE junction to the gastrojejunal anastomosis was found. The staple line appeared intact. The gastrojejunal anastomosis was characterized by healthy appearing mucosa. This was traversed. The xxayw-cv-hwpbqep limb was characterized by healthy appearing mucosa. The examined jejunum was normal. Impression: - Normal hypopharynx. - No gross lesions in the entire esophagus. - Z-line regular. - Gastric bypass with a pouch 5.5 cm in length and intact staple line. Gastrojejunal anastomosis characterized by healthy appearing mucosa. - Normal examined jejunum. - No specimens collected. Estimated Blood Loss: Estimated blood loss was minimal. Recommendation: - Admit the patient to hospital [facility] for ongoing care. - Patient has a contact number available for emergencies. - Patient has a contact number available for emergencies. The signs and symptoms of potential delayed complications were discussed with the patient. Return to normal activities tomorrow. Written discharge instructions were provided to the patient. Procedure Code(s): --- Professional --- 27099 Diagnosis Code(s): --- Professional --- Z98.84 R19.7 R11.15 CPT copyright 2020 [employer]. All rights reserved. Attending Participation: I personally performed the entire procedure. Scope In: 1:51:03 PM Scope Out: 1:57:[address] Juan F Hankins, 08/07/2023 2:12:24 PM This report has been signed electronically by Juan F Hankins Number of Addenda: 0 Note Initiated On: 08/07/2023 1:29 PM us Generic External Data Provider [facility] Final Result documented in this encounter Visit Diagnoses Not on filedocumented in this encounter Care Teams Manager Food Safety Relationship Specialty Start Date End Date Shlomo Hu MD [address] [facility] 110 [place] [address] PCP - General Internal Medicine 02/15/23 [place] [address] [place] [address] PCP - [place] [employer] 08/14/23 Shlomo Hu MD [address] [facility] 110 [place] [address] PCP - [place] [employer] 05/15/2407/14 Shante Kumar APRN-FOLDER INSPECTOR [address] [facility] 160 [place] [address] PCP - [place] [employer] 07/15/24 ThursdayToya LPN [address] [facility] 110 [place] [address] Licensed Practical Nurse Family Medicine 01/19/24 10/21/24 Claribel Scott, PIETRO [address] [place] [address] Licensed Practical Nurse Family Medicine 10/21/24 12/06/24 Jess Marsh LPN [address] [facility] [address] [place] [address] 12/06/24 Esthela Tesfaye, KIRA [address] [phone] Sales Service Technician Family Medicine 02/03/25 documented as of this encounter
--- OUTSIDE RECORDS SUMMARY | 2025-03-28 09:17 | XMS_ITS | Encounter Summary ---
Author Organization [facility] Address [address] [place] [address] Care Team Providers Care Iron Caster Name Role Phone BinduSiobhan bahjusto Unavailable Rasheeda Newton RD Unavailable [phone] Unavailable [phone] Fritz HENDERSON MD, Shlomo Momin Primary Care Provider [phone] Yuan Miller MD, PhD Unavailable [phone] Source Comments In the event this information is protected by the Federal Confidentiality of Alcohol and Drug AbusePatient Records regulations: The Federal rules restrict any use of the information to criminally investigate or prosecute any alcohol or drug abuse patient.[facility] Encounter Details Date Type Department Care Team (Late st Contact Info) Description 06/08/2024 Patient Msg Internal Medicine [facility] [address] [place] [address] Provider, Ccf APPOINTMENT CANCELLATION Social History Tobacco Use Types Packs/Day Years [...] in a half-way (including now)? No 02/16/2024 Area Deprivation Index Answer Date Reagan rded National Score (1-100), lower number is lower ri sk 63 03/05/2023 State Score (1-10), lower number is lower risk 4 03/05/2023 Data from: https://www.neighborhoodatlas.medicine.[facility].edu/. Last address used for calculation [address] [...] AM EDT Office Visit General Surgery [address] [place] [address] Michael Mora PA-C [address] [place], [place] [phone] follow up- add on ok'd by Michael 04/07/2025 1:00 PM EDT [facility] [address] [place] [address] Agatha Kim PSYD [address] [place] [id number] 04/19/2025 11:00 AM EDT [facility] Neurological [facility]regation [address] [place] [address] Joann Loera APRN.TRAINING SYSTEMS OFFICER [address] [place] [address] Cognitive movement issues 04/21/2025 8:30 AM EDT [facility] Nutrition Therapy [address] [phone] Tiffany Banks, RD [address] [place] [id number] f/u TF forula tolerance and hydration 05/29/2025 9:00 AM EDT [facility] Gastroenterology [address] [place] [address] [phone] Johanna Martinez MD [facility] [address] [place], [place] [phone] 3 month follow up 06/28/2025 10:00 AM EDT [facility] Neurology Pain [address] [place] [address] [place] [address] [place] [address] Follow up for pain documented as of this encounter Visit Diagnoses Not on filedocumented in this encounter Additional Health Concerns Infection Onset Date Last Indicated Resolved Time COVID-19 Rule-Out 07/29/2024 07/29/2024 07/29/2024 7:20 PM EST documented as of this encounter Care Teams Iron Caster Relationship Specialty Start Date End Date Shlomo Hu II, MD [address] [facility] [address] [place] [address] PCP - General Internal Medicine 10/06/23 Jacob Sharp [address] [place] [address] Referring 04/30/[address] [place] [id number] Registered Dietitian Nutrition 06/24/[address] [facility] [place] [address] Registered Dietitian Nutrition 08/27/23 Yuan Miller MD, PhD [facility] [place] [address] Surgeon General Surgery 02/03/24 documented as of this encounter
--- OUTSIDE RECORDS SUMMARY | 2025-03-28 09:18 | XMS_ITS | Encounter Summary ---
Author Organization [facility] Address [address] [place] [address] Care Team Providers Care Forming Acid Dumper Name Role Phone Sean Ruiz DO Primary Care Provider [phone] Jacob Sharp Unavailable Rasheeda Newton RD Unavailable [phone] Unavailable [phone] Fritz HENDERSON MD, Shlomo B Primary Care Provider [phone] Yuan Miller MD, PhD Unavailable [phone] Source Comments In the event this information is protected by the Federal Confidentiality of Alcohol and Drug AbusePatient Records regulations: The Federal rules restrict any use of the information to criminally investigate or prosecute any alcohol or drug abuse patient.[facility] Encounter Details Date Type Department Care Team (Late st Contact Info) Description 09/03/2022 Get Medical Advice Thoracic Surgery [address] [place], [place] [id number] [place] [address] [place] [address] vagotomy follow up Social History Tobacco Use Types Packs/Day [...] N ot on file 08/20/2020 Data from: https://www.neighborhoodatlas.medicine.[facility].edu/. Last address used for calculation Not on [...] hearing? Answer Date of Assessment Author No 08/15/2022 4:22 PM Mona Hill RN * Are you blind or do you have serious difficulty seeing, even when wearing glasses? Answer Date of Assessment Author No 08/15/2022 4:22 PM Mona Hill RN * Do you have serious difficulty walking or climbing stairs? Answer Date of Assessment Author No 08/15/2022 4:22 PM Mona Hill RN * Do you have difficulty dressing or bathing? Answer Date of Assessment Author No 08/15/2022 4:22 PM Mona Hill RN * Because of a physical, mental, or emotional condition, do you have difficulty doing errands alone such as visiting a doctor's office or shopping? Answer Date of Assessment Author No 08/04/2022 6:22 PM Lorenza Onofre, PIETRO documented as of this encounter Mental Status * Because of a physical, mental, or emotional condition, do you have serious difficulty concentrating, remembering, or making decisions? Answer Entry Date Author No 08/15/2022 4:22 PM Mona Hill, PIETRO documented in this encounter Plan of Treatment Upcoming Encounters Date Type Department Care Team (Latest Contact Info) Description 03/31/2025 11:00 AM EDT Office Visit General Surgery [address] [phone] Michael Mora PA-C [address] [id number] follow up- add on ok'd by Michael 04/07/2025 1:00 PM EDT [facility] Neurological Scientologist [address] [phone] Agatha Kim PSYD [address]00 [place] [address] 04/19/2025 11:00 AM EDT [facility] Neurological Scientologist [address] [phone] Jaonn Loera APRN.PEANUT BLANCHER [address] [place] [address] Cognitive movement issues 04/21/2025 8:30 AM EDT [facility] Nutrition Therapy [address] [phone] Tiffany Banks, RD [address]00 [place] [address] f/u TF forula tolerance and hydration 05/29/2025 9:00 AM EDT [facility] Gastroenterology [address] [phone] Johanna Martinez MD [facility] [address] [id number] 3 month follow up 06/28/2025 10:00 AM EDT [facility] Neurology Pain [address] [place] [address] [place] [address] [place] [address] Follow up for pain documented as of [...] documented as of this encounter Care Teams Forming Acid Dumper Relationship Specialty [place] [address] [place] [address] PCP - General Family Medicine 07/09/12 10/05/23 Shlomo Hu II, MD [address] [facility] [address] [place] [address] PCP - General Internal Medicine 10/06/23 Jacob Sharp [address] [phone] Referring 04/30/[address] [phone] Registered Dietitian Nutrition 06/24/[address] [place] [address] Registered Dietitian Nutrition 08/27/23 Yuan Miller MD, PhD [address] [place] [address] Surgeon General Surgery 02/03/24 documented as of this encounter
--- OUTSIDE RECORDS SUMMARY | 2025-03-28 09:18 | XMS_ITS | Encounter Summary ---
Author Organization [facility] Address [id number] [address] [place] [address] Care Team Providers Care Emergency Medcl Emt Name Role Phone Skylar Echavarria APRN-FILM AND VIDEO GRAPHICS DESIGNER Primary Care Provider + Reason for Visit * Reason Comments Med Refill Encounter Details Date Type Department Care Team (Late st Contact Info) Description 07/03/2022 Refill [facility] Internal Medicine - Family Medicine [address] [phone] Yg Benítez, DO [address] [phone] Social History Tobacco Use Types Packs/Day Years [...] often do you attend chur ch or moravian services? Patient declined 05/08/2022 Do [...] Answer Date Recorded Total Score 0 05/08/2022 [facility] [place] of Occupat ional Health - Occupational Stress [...] a purpose and direction in my life. Leeann mason Agree 05/08/2022 Education Answer Date Recorded What [...] have Coronavirus / COVID-19? No / Unsure 06/19/2022 9:32 AM EDT documented as of this encounter [...] documented as of this encounter Care Teams Emergency Medcl Emt Relationship Specialty Start Date End Date Skylar Echavarria APRN-FILM AND VIDEO GRAPHICS DESIGNER [address] [place] [address] PCP - General Internal Medicine 11/18/23 documented as of this encounter
--- OUTSIDE RECORDS SUMMARY | 2025-03-28 09:18 | XMS_ITS | Encounter Summary ---
Author Organization [facility] Address [id number] [address] [place] [address] Care Team Providers Care Docketing Specialist Name Role Phone Skylar Echavarria APRN-COMPUTER SCIENCE INSTRUCTOR Primary Care Provider + Reason for Visit * Reason Comments Med Refill Encounter Details Date Type Department Care Team (Late st Contact Info) Description 06/27/2022 Refill [facility] Internal Medicine - Family Medicine [address] [phone] Yg Benítez, DO [address] [phone] Social History Tobacco Use Types Packs/Day Years [...] often do you attend chur ch or rastafari services? Patient declined 05/08/2022 Do you belong [...] Answer Date Recorded Total Score 0 05/08/2022 [facility] [place] of Occupat ional Health - Occupational Stress [...] documented as of this encounter Care Teams Docketing Specialist Relationship Specialty Start Date End Date Skylar Echavarria APRN-COMPUTER SCIENCE INSTRUCTOR [address] [place] [address] PCP - General Internal Medicine 11/18/23 documented as of this encounter
--- OUTSIDE RECORDS SUMMARY | 2025-03-28 09:18 | XMS_ITS | Encounter Summary ---
Author Organization [facility] Address [address] [facility] [place] [address] Care Team Providers Care Entertainment Usher Name Role Phone Shlomo Hu MD Primary Care Provider Jacob Sharp FLARE BREAKER Unavailable [phone] Thursday, Toya CROP FARM HELPER Unavailable [phone] Shlomo Hu MD Unavailable [phone] Shante Kumar DIRECTOR OF RETAIL MARKETING-TIRE CENTER SUPERVISOR Unavailable Claribel Scott RN Unavailable Jses Marsh CROP FARM HELPER Unavailable Esthela Tesfaye GORE STITCHER Unavailable Encounter Details Date Type Department Care Team (Late st Contact Info) Description 05/04/2023 Orders Only [facility] [address] [place] [address] A, Unknown Practice [address] [place] [address] Social History Tobacco Use Types [...] do you attend [facility] or bahai services? Patient declined 03/01/2023 Do [...] heating? Somewhat hard 03/01/2023 [facility] [place] of Occupat ional Health - Occupational Stress [...] Office Visit [facility] [address] [place] [address] Tanya Lozano MD [address] [place] [address] 04/20/2025 3:00 PM EDT Office Visit [facility] [address] [place] [address] Sonny Rodriguez, DPM [address] [facility] 5 [place] [address] 05/04/2025 2:50 PM EDT Office Visit [facility] [address] [place] [address] Sonny Rodriguez, DPM [address] [facility] 5 [place] [address] documented as of this encounter Procedures Procedure Name Priority Date/Time Associated Diagnosis Comments XR CHEST 1 VIEW Routine 04/28/2023 2:[address] ABDOMEN PELVIS W IV CONTRAST Routine 04/28/2023 2:42 PM EDT SCANNED LABS Routine 04/28/2023 2:40 PM EDT documented in this encounter Results * XR chest 1 view (04/28/2023 2:42 PM EDT) Anatomical Region Laterality Modality Chest Radiographic Edwige ging us Unknown Practice A IMG XR PROCEDURES Final Resul t * CT abdomen pelvis w IV contrast (04/28/2023 2:42 PM EDT) Anatomical Region Laterality Modality Body, Pelvis, Abdomen Computed T omography us Unknown Practice A IMG CT PROCEDURES Final Resul t * SCANNED LABS (04/28/2023 2:40 PM EDT) us Unknown Practice A LAB CHG PERFORMABLES Final Re sult documented in this encounter Visit Diagnoses Not on filedocumented in this encounter Care Teams Entertainment Usher Relationship Specialty Start Date End Date Shlomo Hu MD [address] [place] [address] PCP - General Internal Medicine 02/15/23 [place] [address] [place] [address] PCP - [place] [employer] 08/14/23 Shlomo Hu MD [address] [facility] [address] [place] [address] PCP - [place] [employer] 05/15/2407/14 Shante Kumar, DIRECTOR OF RETAIL MARKETING-TIRE CENTER SUPERVISOR [address] [facility] 160 [place] [address] PCP - [place] [employer] 07/15/24 ThursdayToya LPN [address] [place] [address] Licensed Practical Nurse Family Medicine 01/19/24 10/21/24 Claribel Scott, RN [address] [place] [address] Licensed Practical Nurse Family Medicine 10/21/24 12/06/24 Jess Marsh LPN [address] [facility] 110 [place] [address] 12/06/24 Esthela Tesfaye LSW [address] [place] [address] Community Associate Family Medicine 02/03/25 documented as of this encounter
--- OUTSIDE RECORDS SUMMARY | 2025-03-28 09:18 | XMS_ITS | Encounter Summary ---
Author Organization [facility] Address [id number] [address] [place] [address] Care Team Providers Care Fugitive Detective Name Role Phone Skylar Echavarria Julia GARCIA-DRY PLASTERER HELPER Primary Care Provider + Encounter Details Date Type Department Care Team (Late st Contact Info) Description 07/15/2022 Orders Only [facility] Family Medicine [address] [place] [address] [place] [address] Ref Prov, [place] [address] Social History Tobacco Use Types Packs/Day Years [...] do you attend chur or uatsdin services? Patient declined 05/08/2022 Do you belong [...] Answer Date Recorded Total Score 0 05/08/2022 [facility] of Occupat ional Health - [...] Recorded Do you need help finding a [facility] and/or a training program? No [...] Date/Time Associated Diagnosis Comments MULTIPLE LABS Routine 07/07/2022 documented in this encounter Results * Multiple labs (07/07/2022) us Not In System Ref Prov LA IMAGING Final Res ult MANUALLY TRANSCRIBED RESULTS documented in this encounter Visit Diagnoses Not on filedocumented in this encounter Additional Health Concerns Assessment Noted Time PHQ-9 Depression Total Score: 0 05/08/20 22 4:29 PM EDT A Body Mass Index follow-up plan has been documented for the patient 05/13/2022 11:13 AM EDT documented as of this encounter Care Teams Fugitive Detective Relationship Specialty Start Date End Date Skylar Echavarria APRN-DRY PLASTERER HELPER [address] [place] [address] PCP - General Internal Medicine 11/18/23 documented as of this encounter
--- OUTSIDE RECORDS SUMMARY | 2025-03-28 09:18 | XMS_ITS | Encounter Summary ---
Author Organization [facility] Address [address] [place] [address] Phone Care Team Providers Care Mri Supervisor Name Role Phone Yg James MD Primary Care Provider [phone] Shlomo Hu MD Primary Care Provider [phone] Encounter Details Date Type Department Care Team (Late st Contact Info) Description 11/12/2011 Scanned Document [facility] [address] [place] [phone] Scanning, Generic Provider Social History Tobacco Use Types Packs/Day Years Used Date Smoking Tobacco: Never Assessed Comments Unknown Sex and Gender Information Value Date Recorded Sex Assigned at Not on file Legal Sex Female 12:53 PM EST Gender Identity Not on file Sexual Orientation Not on file documented as of this encounter Plan of Treatment Not on file documented as of this encounter Visit Diagnoses Not on filedocumented in this encounter Additional Health Concerns Infection Onset Date Last Indicated Resolved Time COVID-19 Rule-Out 04/28/2023 04/28/2023 05/09/2023 5:23 AM EDT documented as of this encounter Care Teams Mri Supervisor Relationship Specialty Start Date End Date Yg James MD PCP - General 09/14/17 12/20/24 Shlomo Hu MD [address] [facility] [address] [place], [place] [phone] PCP - General Internal Medicine 12/21/24 documented as of this encounter
--- OUTSIDE RECORDS SUMMARY | 2025-03-28 09:18 | XMS_ITS | Encounter Summary ---
Author Organization [facility] Address [address] [place] [address] Care Team Providers Care Die Engraving Supervisor Name Role Phone Jacob Sharp Unavailable Rasheeda Newton RD Unavailable [phone] Unavailable [phone] Fritz HENDERSON MD, Shlomo Momin Primary Care Provider [phone] Yuan Miller MD, PhD Unavailable [phone] Source Comments In the event this information is protected by the Federal Confidentiality of Alcohol and Drug AbusePatient Records regulations: The Federal rules restrict any use of the information to criminally investigate or prosecute any alcohol or drug abuse patient.[facility] Encounter Details Date Type Department Care Team (Late st Contact Info) Description 04/18/2024 Patient Msg RASHI SERRANO [address] [id number] Provider, [facility] ketamine infusion Social History Tobacco Use Types Packs/Day Years [...] 08/10/2023 PHQ-2 Answer Date Recorded PHQ-2 score 2 04/18/2024 Hunger Vital Sign Answer Date Recorded [...] lower risk 4 03/05/2023 Data from: https://www.neighborhoodatlas.medicine.[facility].edu/. Last address used for calculation [address] [...] AM EDT Office Visit General Surgery [address] [phone] Michael Mora PA-C [address] [place], [place] [phone] follow up- add on ok'd by Michael 04/07/2025 1:00 PM EDT [facility] [address] [place] [address] Agatha Kim PSYD [address] [place], [place] [phone] 04/19/2025 11:00 AM EDT [facility] Neurological Church [address] [place] [address] Joann Loera APRN.EXECUTIVE SEARCH CONSULTANT [address] [place] [address] Cognitive movement issues 04/21/2025 8:30 AM EDT [facility] Nutrition Therapy [address] [phone] Tiffany Banks, RD [address] [phone] f/u TF forula tolerance and hydration 05/29/2025 9:00 AM EDT [facility] Gastroenterology [address] [phone] Johanna Martinez MD [facility] [address] [place], [place] [phone] 3 month follow up 06/28/2025 10:00 AM EDT [facility] Neurology Pain [address] [place] [address] [place] [address] [place] [address] Follow up for pain documented as of this encounter Visit Diagnoses Not on filedocumented in this encounter Additional Health Concerns Infection Onset Date Last Indicated Resolved Time COVID-19 Confirmed Comment:Anticipate 10 day isolation 04/12/2024 04/18/2024 0801/2024 8:51 PM EDT COVID-19 Rule-Out 04/18/2024 04/18/2024 04/18/2024 2:28 PM EDT COVID-19 Rule-Out 07/29/2024 07/29/2024 07/29/2024 7:20 PM EST documented as of this encounter Care Teams Die Engraving Supervisor Relationship Specialty Start Date End Date Shlomo Hu II, MD [address] [place] [address] PCP - General Internal Medicine 10/06/23 Jacob Sharp [address] [place] [address] Referring 04/30/[address] [place] [address] Registered Dietitian Nutrition 06/24/[address] [place] [address] Registered Dietitian Nutrition 08/27/23 Yuan Miller MD, PhD [address] [place] [address] Surgeon General Surgery 02/03/24 documented as of this encounter
--- OUTSIDE RECORDS SUMMARY | 2025-03-28 09:18 | XMS_ITS | Encounter Summary ---
Author Organization [facility] Address [address] [place] [address] Care Team Providers Care Delivery Driver Name Role Phone Jacob Sharp Unavailable Rasheeda Newton RD Unavailable [phone] Unavailable [phone] Fritz HENDERSON MD, Shlomo Momin Primary Care Provider [phone] Yuan Miller MD, PhD Unavailable [phone] Source Comments In the event this information is protected by the Federal Confidentiality of Alcohol and Drug AbusePatient Records regulations: The Federal rules restrict any use of the information to criminally investigate or prosecute any alcohol or drug abuse patient.[facility] Encounter Details Date Type Department Care Team (Late st Contact Info) Description 05/05/2024 Patient Msg Neurological Synagogue [address] [place] [address] Violeta Pennington MD [address] [place] [address] Appointment Request Social History Tobacco Use Types [...] slept in a penitentiary (including now)? No 02/16/2024 Area Deprivation Index Answer Date Reagan rded National Score (1-100), lower number is lower ri sk 63 03/05/2023 State Score (1-10), lower number is lower risk 4 03/05/2023 Data from: https://www.neighborhoodatlas.medicine.[facility].edu/. Last address used for calculation [address] [...] Assessment Author No 02/21/2024 2:13 PM EDT Chelel Connell RN * Do you have serious [...] Author No 02/21/2024 2:13 PM EDT Chelle Cnonell RN documented in this encounter Plan of Treatment Upcoming Encounters Date Type Department Care Team (Latest Contact Info) Description 03/31/2025 11:00 AM EDT Office Visit General Surgery [address] [phone] Michael Mora PA-C [address] [place] [address] follow up- add on ok'd by Michael 04/07/2025 1:00 PM EDT [facility] [address] [phone] Agatha Kim PSYD [address] [place] [address] 04/19/2025 11:00 AM EDT [facility] Neurological Synagogue [address] [place] [address] Joann Loera APRN.TERMITE TREATER HELPER [address] [place] [address] Cognitive movement issues 04/21/2025 8:30 AM EDT [facility] Nutrition Therapy [address] [phone] Tiffany Banks, RD [address] [phone] f/u TF forula tolerance and hydration 05/29/2025 9:00 AM EDT [facility] Gastroenterology [address] 2017806 Johanna Martinez MD [facility] [address] [place], [place] [phone] 3 month follow up 06/28/2025 10:00 AM T [facility] Neurology Pain [address] [place] [address] [place] [address] [place] [address] Follow up for pain documented as of this encounter Visit Diagnoses Not on filedocumented in this encounter Additional Health Concerns Infection Onset Date Last Indicated Resolved Time COVID-19 Rule-Out 07/29/2024 07/29/2024 07/29/2024 7:20 PM EST documented as of this encounter Care Teams Delivery Driver Relationship Specialty Start Date End Date Shlomo Hu II, MD [address] [place] [address] PCP - General Internal Medicine 10/06/23 Jacob Sharp [address] [place] [address] Referring 04/30/[address] [phone] Registered Dietitian Nutrition 06/24/[address] [phone] Registered Dietitian Nutrition 08/27/23 Yuan Miller MD, PhD [address] [place] [address] Surgeon General Surgery 02/03/24 documented as of this encounter
--- OUTSIDE RECORDS SUMMARY | 2025-03-28 09:18 | XMS_ITS | Encounter Summary ---
Author Organization [facility] Address [address] [place] [address] Care Team Providers Care Grant Coordinator Name Role Phone Shlomo Hu MD Primary Care Provider Jacob Sharp REGULATORY COMPLIANCE SPECIALIST Unavailable Thursday, Toya LEARNING TECHNOLOGIES SPECIALIST Unavailable [phone] Shlomo Hu MD Unavailable [phone] Shante Kumar ATMOSPHERIC PHYSICIST-PAYMENT POSTER Unavailable Claribel Scott RN Unavailable [phone] Jess Marsh LEARNING TECHNOLOGIES SPECIALIST Unavailable Esthela Tesfaye CAMP ASSISTANT Unavailable [phone] Encounter Details Date Type Department Care Team (Late st Contact Info) Description 02/17/2023 Abstract [facility] [address] [facility] [address] [place] [phone] Shante Kumar, ATMOSPHERIC PHYSICIST-PAYMENT POSTER 112 [facility] 160 [place] [address] Social History Tobacco Use Types Packs/Day Years Used Date Smoking Tobacco: Never Tobacco Cessation:Counseling Given: Not Answered Alcohol Use Standard Drinks/Week Comments Never 0 [...] suspected to have Coronavirus/COVID-19? No / Unsure 02/19/2023 9:47 AM EDT documented as of this encounter Plan of Treatment Upcoming Encounters Date Type Department Care Team ([facility] st Contact Info) Description 04/12/2025 9:50 AM EDT Office Visit [facility] [address] [place] [address] Tanya Lozano MD [address] [place] [address] 04/20/2025 3:00 PM EDT Office Visit [facility] [address] [place] [address] Sonny Rodriguez DPM [address] [address] 05/04/2025 2:50 PM EDT Office Visit [facility] [address] [place] [address] Sonny Rodriguez DPM [address] [address] documented as of this encounter Visit Diagnoses Not on filedocumented in this encounter Care Teams Grant Coordinator Relationship Specialty Start Date End Date Shlomo uH MD [address] [place] [address] PCP - General Internal Medicine 02/15/23 [place] [address] [place] [address] PCP - [place] [employer] 08/14/23 Shlomo Hu MD [address] [place] [address] PCP - [place] [employer] 05/15/2407/14 Shante Kumar, ATMOSPHERIC PHYSICIST-PAYMENT POSTER [address] [place] [address] PCP - [place] [employer] 07/15/24 5 ThursdayToya LPN [address] [place] [address] Licensed Practical Nurse Family Medicine 01/19/24 10/21/24 Claribel Scott, PIETRO [address] [place] [address] Licensed Practical Nurse Family Medicine 10/21/24 12/06/24 Jess Marsh LPN [address] [facility] [address] [place] [address] 12/06/24 Esthela Tesfaye LSW [address] [place] [address] Mall Manager Family Medicine 02/03/25 documented as of this encounter
--- OUTSIDE RECORDS SUMMARY | 2025-03-28 09:18 | XMS_ITS | Encounter Summary ---
Author Organization [facility] Address [address] [facility] [place] [address] Care Team Providers Care Devops Engineer Name Role Phone Shlomo Hu MD Primary Care Provider [phone] Jacob Sharp CLIENT RELATION SPECIALIST Unavailable Thursday, Toya CREATIVE GURU Unavailable [phone] Shlomo Hu MD Unavailable [phone] Shante Kumar RADIATOR TESTER-SOCIAL MEDIA PROJECT MANAGER Unavailable Claribel Scott RN Unavailable Jess Marsh CREATIVE GURU Unavailable Esthela Tesfaye ELEVATED MOTORMAN Unavailable [phone] Encounter Details Date Type Department Care Team (Late st Contact Info) Description 05/12/2023 Abstract [facility] 112 [facility] 110 [place] [address] Shlomo Hu MD 112 [facility] 110 [place] [address] Social History Tobacco Use Types [...] How often do you attend [facility] or scientologist services? Patient declined 03/01/2023 Do [...] care, and heating? Somewhat hard 03/01/2023 [facility] of Occupat ional Health - [...] suspected to have Coronavirus/COVID-19? No / Unsure 05/14/2023 8:38 AM EDT documented as of this encounter Plan of Treatment Upcoming Encounters Date Type Department Care Team (Late st Contact Info) Description 04/12/2025 9:50 AM EDT Office Visit [facility] [address] [place] [address] Tanya Lozano MD [address] [place] [address] 04/20/2025 3:00 PM EDT Office Visit [facility] [address] [place] [address] Sonny Rodriguez DPM 3[address] [facility] 5 [place] [address] 05/04/2025 2:50 PM EDT Office Visit [facility] [address] [place] [address] Sonny Rodriguez DPLudmila 3006 [facility] 5 [place] [address] documented as of this encounter Visit Diagnoses Not on filedocumented in this encounter Care Teams Devops Engineer Relationship Specialty Start Date End Date Shlomo Hu MD [address] [place] [address] PCP - General Internal Medicine 02/15/23 [place] [address] [place] [address] PCP - [place] [employer] 08/14/23 Shlomo Hu MD [address] [place] [address] PCP - [place] [employer] 05/15/2407/14 Shante Kumar, RADIATOR TESTER-SOCIAL MEDIA PROJECT MANAGER [address] [place] [address] PCP - Denzel Mckeon 07/15/24 ThursdayToya LPN [address] [place] [address] Licensed Practical Nurse Family Medicine 01/19/24 10/21/24 Claribel Scott, RN [address] [place] [address] Licensed Practical Nurse Family Medicine 10/21/24 12/06/24 Jess Marsh LPN [address] [facility] 110 [place] [address] 12/06/24 Esthela Tesfaye, KIRA [address] [place] [address] Remote Sensing Technician Family Medicine 02/03/25 documented as of this encounter
--- OUTSIDE RECORDS SUMMARY | 2025-03-28 09:18 | XMS_ITS | Encounter Summary ---
Author Organization [facility] Address [address] [place] [address] Care Team Providers Care Moto Mix Operator Name Role Phone Shlomo Hu MD Primary Care Provider [phone] Jacob Sharp COMPUTER LAB PARA PROFESSIONAL Unavailable Thursday, Toya MACHINE ATTENDANT Unavailable [phone] Shlomo Hu MD Unavailable [phone] Shante Kumar MECHANICAL EQUIPMENT TEST ENGINEER-DIRECTOR [facility] Unavailable Claribel Scott RN Unavailable Jess Marsh MACHINE ATTENDANT Unavailable Esthela Tesfaye FIGHTING VEHICLE INFANTRYMAN Unavailable [phone] Encounter Details Date Type Department Care Team (Late st Contact Info) Description 04/23/2023 Clinisync Result Encounter [facility] External Department Unsolicited Provider, Generic External Data Social History Tobacco Use Types Packs/Day Years Used Date Smoking Tobacco: Never Alcohol Use Standard Drinks/Week Comments Never 0 (1 standard drink = 0.6 oz pur e alcohol) Humiliation, Afraid, Rape, and Kick questionnair e [...] week 03/01/2023 How often do you attend [facility] or buddhist services? Patient declined 03/01/2023 Do you belong to any clubs o r organizations such as protestant groups, unions, fraternal or athletic groups, or [...] care, and heating? Somewhat hard 03/01/2023 [facility] Occupat ional Health - Occupational [...] the Last Year Not on file 2022 Comments Unknown Sex and Gender Information Value [...] EDT Office Visit [facility] [address] [place] [address] Tanya Lozano MD [address] [place] [address] 04/20/2025 3:00 PM EDT Office Visit [facility] [address] [place] [address] Sonny Rodriguez, EFREN 3006 [facility] 5 [place] [address] 05/04/2025 2:50 PM EDT Office Visit [facility] [address] [place] [address] Sonny Rodriguez DPM 3006 [facility] 5 [place] [address] documented as of this encounter Procedures Procedure Name Priority Date/Time Associated Diagnosis Comments [facility] SURGICAL PATHOLOGY Routine 04/23/2023 7:47 AM EDT COLONOSCOPY 04/23/2023 7:15 AM EDT documented in this encounter Results * [facility] SURGICAL PATHOLOGY (04/23/2023 7:47 AM EDT) [facility] CASE REPORT [facility] Comment: Surgical Pathology Report Case: [id number] Authorizing Provider: Rene Corona MD Collected: 04/23/2023 07:47 AM Ordering Location: Procedures Received: 04/23/2023 08:04 AM Pathologist: Jamie Krishnan MD Specimen: COLON BIOPSY [facility] FINAL DIAGNOSIS [facility] Comment: A. Colon, biopsy: - Colonic mucosa with no significant pathologic changes. GROSS DESCRIPTION A. COLON BIOPSY [facility] Comment: Received in formalin are multiple pieces of rodriguez, soft tissue aggregating to 1.9 x 0.2 x 0.2 cm. Totally submitted in formalin in one cassette. Gross examination performed at [facility], [address] [place] [address] 04/23/2023 12:13 PM [facility] CLINICAL HISTORY R/O microscopic colitis [facility] FINAL PERFORMING LAB [facility] Comment: Diagnostic interpretation performed at [facility], [address], [place] [address] CLIA# [id number] Referral And Information Aide: Dona Saavedra M.D. 04/23/2023 7:47 AM EDT 04/24/2023 12:34 PM EDT Narrative MONIKA - 04/24/2023 1:19 PM EDT Specimen Type: TISSUE SPECIMEN Ordering Facility: [facility] Address: [address] [place] [id number] Original Ordering Provider: RENE CORONA us Generic External Data Provider BOAZROBERTOPEDRO F inal Result Performing Organization Address City/State/[facility] Co de Phone Number MONIKA CC [address] [place] [address] [facility] [address] [facility] [address] [place] [address] * COLONOSCOPY (04/23/2023 7:15 AM EDT) Anatomical Region Laterality Modality Other 04/23/2023 7:15 AM EDT Narrative 04/23/2023 7:58 AM EDT [facility] Gastrointestinal Endoscopy Patient Name: Melina Taveras Procedure Date: 04/23/2023 7:15 AM Date of : 1975 Admit Type: Outpatient Age: 47 Room: [place] [address] Gender: Female Note Status: Finalized Attending MD: Rene Corona MD Procedure: Colonoscopy Indications: Chronic diarrhea Providers: Rene Corona MD Patient Profile: This is a 47 year old female. Refer to note in patient chart for documentation of history and physical. Last Colonoscopy: March 2023. Referring Physician: Brigitte Garcia (Referring MD) Medicines: Monitored Anesthesia Care Complications: [...] by the physician, the nurse and the greens keeper in the pre-procedure area in the procedure [...] previously scheduled. Procedure Code(s): --- Professional --- 72171, Colonoscopy, flexible; with biopsy, single or multiple Diagnosis Code(s): --- Professional --- K52.9, Noninfective gastroenteritis and colitis, unspecified K57.30, Diverticulosis of large intestine without perforation or abscess without bleeding CPT copyright 2020 [employer]. All rights reserved. The codes documented in this report are preliminary and upon rehab consultant review may be revised to meet current compliance requirements. Attending Participation: I personally performed the entire procedure. Scope In: 7:35:44 AM Scope Out: 7:55:36 AM MD Rene Weinstein MD 04/23/2023 7:58:41 AM This report has been signed electronically by Rene Corona MD Number of Addenda: 0 Note Initiated On: 04/23/2023 7:15 AM Estimated Blood Loss: Estimated blood loss was minimal. Procedure Note Radiology, Radiologist, MD - 04/23/2023 [facility] Gastrointestinal Endoscopy Patient Name: Melina Taveras Procedure Date: 04/23/2023 7:15 AM Date of : 1975 Admit Type: Outpatient Age: 47 Room: [place] [address] Gender: Female Note Status: Finalized Attending MD: Rene Corona MD Procedure: Colonoscopy Indications: Chronic diarrhea Providers: Rene Corona MD Patient Profile: This is a 47 year old female. Refer to note in patient chart for documentation of history and physical. Last Colonoscopy: March 2023. Referring Physician: Brigitte Garcia (Referring MD) Medicines: Monitored Anesthesia Care Complications: [...] by the physician, the nurse and the greens keeper in the pre-procedure area in the procedure [...] The ileocecal valve, appendiceal orifice, and rectum werephotographed. Scope Withdrawal Time: 0 hours 11 minutes [...] previously scheduled. Procedure Code(s): --- Professional --- 02437, Colonoscopy, flexible; with biopsy, single or multiple Diagnosis Code(s): --- Professional --- K52.9, Noninfective gastroenteritis and colitis, unspecified K57.30, Diverticulosis of large intestine without perforation or abscess without bleeding CPT copyright 2020 [employer]. All rights reserved. The codes documented in this report are preliminary and upon rehab consultant review may be revised to meet current compliance requirements. Attending Participation: I personally performed the entire procedure. Scope In: 7:35:44 AM Scope Out: 7:55:36 AM MD Rene Weinstein MD 04/23/2023 7:58:41 AM This report has been signed electronically by Rene Corona MD Number of Addenda: 0 Note Initiated On: 04/23/2023 7:15 AM Estimated Blood Loss: Estimated blood loss was minimal. us Generic External Data Provider [facility] Final Result documented in this encounter Visit Diagnoses Not on filedocumented in this encounter Care Teams Moto Mix Operator Relationship Specialty Start Date End Date Shlomo Hu MD 112 [facility] 110 [place] [address] PCP - General Internal Medicine 02/15/23 [place] [address] [place] [address] PCP - [place] [employer] 08/14/23 Shlomo Hu MD 112 [facility] 110 [place] [address] PCP - [place] [employer] 05/15/2407/14 Shante Kumar, MECHANICAL EQUIPMENT TEST ENGINEER-DIRECTOR [facility] [address] [facility] 160 [place] [address] PCP - [place] [employer] 07/15/24, DUKE Pittman [address] [facility] 110 [place] [address] Licensed Practical Nurse Family Medicine 01/19/24 10/21/24 Claribel Scott, PIETRO [address] [place] [address] Licensed Practical Nurse Family Medicine 10/21/24 12/06/24 Jess Marsh LPN 112 [facility] 110 [place] [address] 12/06/24 Esthela Tesfaye, FIGHTING VEHICLE INFANTRYMAN [address] [place] [address] Rug Weaver Family Medicine 02/03/25 documented as of this encounter
--- OUTSIDE RECORDS SUMMARY | 2025-03-28 09:18 | XMS_ITS | Encounter Summary ---
Author Organization [facility] Address [address] [place] [address] Phone Care Team Providers Care Saturator Operator Name Role Phone Yg James MD Primary Care Provider [phone] Shlomo Hu MD Primary Care Provider Encounter Details Date Type Department Care Team (Late st Contact Info) Description 05/10/2011 Scanned Document [facility] [address] [place] [id number] Scanning, Generic Provider Social History Tobacco Use [...] documented as of this encounter Care Teams Saturator Operator Relationship Specialty Start Date End Date Yg James MD PCP - General 09/14/17 12/20/24 Shlomo Hu MD [address] [facility] 110 [place], [place] [address] PCP - General Internal Medicine 12/21/24 documented as of this encounter
--- OUTSIDE RECORDS SUMMARY | 2025-03-28 09:18 | XMS_ITS | Encounter Summary ---
Author Organization [facility] Address [address] [place] [address] Care Team Providers Care Cardiology Technologist Name Role Phone Jacob Sharp Unavailable Rasheeda Newton RD Unavailable [phone] Unavailable [phone] Fritz HENDERSON MD, Shlomo Momin Primary Care Provider [phone] Yuan Miller MD, PhD Unavailable [phone] Source Comments In the event this information is protected by the Federal Confidentiality of Alcohol and Drug AbusePatient Records regulations: The Federal rules restrict any use of the information to criminally investigate or prosecute any alcohol or drug abuse patient.[facility] Encounter Details Date Type Department Care Team (Late st Contact Info) Description 05/01/2024 [facility] Medical Advice [facility] [address] [address] [place] [address] [place] [address] Neuropathy Social History Tobacco Use Types Packs/Day [...] in a usp (including now)? No 02/16/2024 Area Deprivation Index Answer Date Reagan rded National Score (1-100), lower number is lower ri sk 63 03/05/2023 State Score (1-10), lower number is lower risk 4 03/05/2023 Data from: https://www.neighborhoodatlas.medicine.[facility].edu/. Last address used for calculation [...] encounter Miscellaneous Notes * Telephone Encounter - Sugey Keenan RN - 05/04/2024 2:08 PM EDT Patient referred to Neurology for FND management however, she is asking who will treat her Neuropathy. Patient does see Pain management. Please advise. 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 Spells started in early 2023 and had persisted. She has had EMG, skin biopsy and MRIs of the brain and cervical spine which illustrated a small fiber neuropathy but no other central/peripheral deficits. 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 The pathogenesis and rationale for treatment was discussed at length. Literature/resources provided along with a FND consult to our multidisciplinary team. Office Visit on 04/21/24 CONSULT TO FUNCTIONAL MOVEMENT DISORDERS (FMD) CONSULT TO FMD EDUCATION SHARED MEDICAL APPOINTMENT CONSULT TO PSYCHOLOGY CONSULT TO PHYSICAL THERAPY CONSULT TO AIRCRAFT MAINTENANCE MANAGER CONSULT TO SPEECH THERAPY documented in this encounter Plan of Treatment Upcoming Encounters Date Type Department Care Team (Latest Contact Info) Description 03/31/2025 11:00 AM EDT Office Visit General Surgery [address] [place] [id number] Michael [place] PA-C [address] [place] [id number] follow up- add on ok'd by Michael 04/07/2025 1:00 PM EDT [facility] [address] [id number] Agatha Kim PSYD [address] [place], [place] [phone] 04/19/2025 11:00 AM EDT [facility] [address] [place] [address] Joann Loera APRN.PACKING MACHINE PILOT CAN ROUTER [address] [place], [place] [id number] Cognitive movement issues 04/21/2025 8:30 AM EDT [facility] [address] [place] [address] f/u TF forula tolerance and hydration 05/29/2025 9:00 AM EDT [facility] Gastroenterology [address] [address] Johanna Martinez MD [facility] [address] [address] 3 month follow up 06/28/2025 10:00 AM EDT [facility] Neurology Pain [address] [place] [address] [place] [address] [place], [place] [phone] Follow up for pain documented as of this encounter Visit Diagnoses Not on filedocumented in this encounter Additional Health Concerns Infection Onset Date Last Indicated Resolved Time COVID-19 Rule-Out 07/29/2024 07/29/2024 07/29/2024 7:20 PM EST documented as of this encounter Care Teams Cardiology Technologist Relationship Specialty Start Date End Date Shlomo Hu II, MD 112 [facility] 110 [place] [id number] PCP - General Internal Medicine 10/06/23 Jacob Sharp [address] [place], [place] [address] Referring 04/30/[address] [place] [address] Registered Dietitian Nutrition 06/24/[address] [facility]0 [place], [place] [address] Registered Dietitian Nutrition 08/27/23 Yuan Miller MD, PhD [facility]0 [place] [id number] Surgeon General Surgery 02/03/24 documented as of this encounter
--- OUTSIDE RECORDS SUMMARY | 2025-03-28 09:18 | XMS_ITS | Encounter Summary ---
Author Organization [facility] Address [address] [facility] [place] [address] Care Team Providers Care Licensed Staff Mft Name Role Phone Shlomo Hu MD Primary Care Provider [phone] Jacob Sharp TELEPHONIC CASE MANAGER Unavailable Thursday, Toya COMMUNICATIONS MAINTAINER Unavailable [phone] Shlomo Hu MD Unavailable [phone] Shante Kumar HOG RAISER-ELL TEACHER Unavailable Claribel Scott RN Unavailable Jess Marsh COMMUNICATIONS MAINTAINER Unavailable Esthela Tesfaye AUCTIONEER AUTOMOBILE Unavailable [phone] Encounter Details Date Type Department Care Team (Late st Contact Info) Description 05/06/2023 Orders Only [facility] [address] [place] [address] A, Unknown Practice [address] [place] [address] Social History Tobacco Use Types [...] week 03/01/2023 How often do you attend [facility] or temple services? Patient declined 03/01/2023 Do [...] medical care, and heating? Somewhat hard 03/01/2023 [facility] of Occupat ional Health - Occupational Stress [...] Office Visit [facility] [address] [place] [address] Tanya Lozano MD [address] [place] [address] 04/20/2025 3:00 PM EDT Office Visit [facility] [address] [place] [address] Sonny Rodriguez, DPM 3006 [facility] 5 [place] [address] 05/04/2025 2:50 PM EDT Office Visit [facility] [address] [place] [address] Sonny Rodriguez, DPLudmila [address] [address] [place] [address] documented as of this encounter Procedures Procedure Name Priority Date/Time Associated Diagnosis Comments SC[facility]ED LABS Routine 05/04/2023 11:01 AM EDT documented in this encounter Results * [facility] LABS (05/04/2023 11:01 AM EDT) us Unknown Practice A LAB CHG PERFORMABLES Final Re sult documented in this encounter Visit Diagnoses Not on filedocumented in this encounter Care Teams Licensed Staff Mft Relationship Specialty Start Date End Date Shlomo Hu MD [address] [place] [address] PCP - General Internal Medicine 02/15/23 [place] [address] [place] [address] PCP - [place] [employer] 08/14/23 Shlomo Hu MD [address] [place] [address] PCP - [place] [employer] 05/15/2407/14 Shante Kumar, HOG RAISER-ELL TEACHER [address] [place] [address] PCP - [place] [employer] 07/15/24 ThursdayToya LPN [address] [place] [address] Licensed Practical Nurse Family Medicine 01/19/24 10/21/24 Claribel Scott, PIETRO [address] [place] [address] Licensed Practical Nurse Family Medicine 10/21/24 12/06/24 Jess Marsh LPN [address] [facility] 110 [place] [address] 12/06/24 Esthela Tesfaye, AUCTIONEER AUTOMOBILE [address] [place] [address] Cnc Applications Engineer Family Medicine 02/03/25 documented as of this encounter
--- OUTSIDE RECORDS SUMMARY | 2025-03-28 09:18 | XMS_ITS | Encounter Summary ---
Author Organization [facility] Address [address] [facility] [place] [address] Care Team Providers Care Soccer Commentator Name Role Phone Shlomo Hu MD Primary Care Provider Jacob Sharp COIL WINDING MACHINES SET UP MECHANIC Unavailable Thursday, Toya PROJECT DESIGN ENGINEER Unavailable [phone] Shlomo Hu MD Unavailable [phone] Shante Kumar FORM DESIGNER-DIGITAL MARKETING MANAGER Unavailable Claribel Scott RN Unavailable [phone] Jess Marsh PROJECT DESIGN ENGINEER Unavailable Esthela Tesfaye NANOSCIENCE TECHNICIAN Unavailable Encounter Details Date Type Department Care Team (Late st Contact Info) Description 05/04/2023 Abstract [facility] 112 [facility] 110 [place] [address] Shlomo Hu MD 112 [facility] 110 [place] [address] Social History Tobacco Use Types [...] week 03/01/2023 How often do you attend [facility] or jewish services? Patient declined 03/01/2023 Do [...] medical care, and heating? Somewhat hard 03/01/2023 [facility] of Occupat ional Health - [...] Visit [facility] [address] [place] [address] Tanya Lozano MD [address] [place] [address] 04/20/2025 3:00 PM EDT Office Visit [facility] [address] [place] [address] Sonny Rodriguez, DPM 3006 [facility] 5 [place] [address] 05/04/2025 2:50 PM EDT Office Visit [facility] [address] [place] [address] Sonny Rodriguez, DPM [address] [address] documented as of this encounter Visit Diagnoses Not on filedocumented in this encounter Care Teams Soccer Commentator Relationship Specialty Start Date End Date Shlomo Hu MD [address] [facility] 110 [place] [address] PCP - General Internal Medicine 02/15/23 [place] [address] [place] [address] PCP - [place] [employer] 08/14/23 Shlomo Hu MD [address] [facility] 110 [place] [address] PCP - [place] [employer] 05/15/2407/14 Shante Kumar APRN-DIGITAL MARKETING MANAGER [address] [place] [address] PCP - [place] [employer] 07/15/24 5 Thursday, DUKE Pittman [address] [place] [address] Licensed Practical Nurse Family Medicine 01/19/24 10/21/24 Claribel Scott, RN [address] [place] [address] Licensed Practical Nurse Family Medicine 10/21/24 12/06/24 Jess Marsh LPN [address] [place] [address] 12/06/24 Esthela Tesfaye LSW [address] [place] [address] Director Search Marketing Strategies Family Medicine 02/03/25 documented as of this encounter
--- OUTSIDE RECORDS SUMMARY | 2025-03-28 09:18 | XMS_ITS | Encounter Summary ---
Author Organization [facility] Address [address] [facility] [place] [address] Care Team Providers Care Vamp Seamer Name Role Phone Shlomo Hu MD Primary Care Provider [phone] Jacob Sharp MATCHING MACHINE OPERATOR Unavailable Thursday, Toya KNOCKOUT MACHINE OPERATOR Unavailable [phone] Shlomo Hu MD Unavailable [phone] Shante Kumar LICENSED PRACTICAL VOCATIONAL NURSE-LOCAL SALES MANAGER Unavailable Claribel Scott RN Unavailable Maximo Jess KNOCKOUT MACHINE OPERATOR Unavailable Esthela Tesfaye AQUATIC LIFE LABORER Unavailable Encounter Details Date Type Department Care Team (Late st Contact Info) Description 08/24/2023 Abstract [facility] [address] [facility] 110 [place] [address] Shlomo Hu MD 112 [facility] 110 [place] [address] Social History Tobacco Use Types [...] 03/01/2023 How often do you attend [facility] or anglican services? Patient declined 03/01/2023 Do [...] Recorded Patient Health Questionnaire-2 Score 6 08/26/2023 [facility] of Occupat [...] AM EST documented as of this encounter Functional Status * Over the past 2 weeks, how often have you been bothered by any of the following problems? Question Answer Date of Assessment Author Little interest or pleasure in doing things Nearly every day 08/26/2023 1:30 PM EST Martha Grajeda i, KNOCKOUT MACHINE OPERATOR Feeling down, depressed, or hopeless Nearly every day 08/26/2023 1:30 PM EST Elvia Grajeda LP N Patient Health Questionnaire-2 Score 6 08/26/2023 1:30 PM EST Elvia Grajeda KNOCKOUT MACHINE OPERATOR * Question Answer Date of Assessment Author Trouble falling or staying asleep, or sleeping too much Not at all 08/26/2023 1:30 PM EST Elvia Grajeda LP N Feeling tired or having little energy Not at all 08/26/2023 1:30 PM EST Elvia Grajeda LP N Poor appetite or overeating Not at all 08/26/2023 1:30 PM EST Elvia Grajeda LP N Feeling bad about yourself - or that you are a failure or have let yourself or your family down Nearly every day 08/26/2023 1:30 PM EST Elvia Grajeda LP N Trouble concentrating on things, such as reading the newspaper or watching television Not at all 08/26/2023 1:30 PM EST Elvia Grajeda, LP N Moving or speaking so slowly that other people could have noticed? Or the opposite - being so fidgety or restless that you have been moving around a lot more than usual. Not at all 08/26/2023 1:30 PM EST Elvia Grajeda LP N Thoughts that you would be better off or hurting yourself in some way Not at all 08/26/2023 1:30 PM EST Elvia Grajeda L PN Patient Health Questionnaire-9 Score 9 08/26/2023 1:30 PM EST Elvia Grajeda LPN documented as of this encounter Plan of Treatment Upcoming Encounters Date Type Department Care Team (Late st Contact Info) Description 04/12/2025 9:50 AM EDT Office Visit [facility] [address] [place] [address] Tanya Lozano MD [address] [place] [address] 04/20/2025 3:00 PM EDT Office Visit [facility] [address] [place] [address] Sonny Rodriguez, DPM [address] [facility] 5 [place] [address] 05/04/2025 2:50 PM EDT Office Visit [facility] [address] [place] [address] Sonny Rodriguez, DPM [address] [facility] 5 [place] [address] documented as of this encounter Visit Diagnoses Not on filedocumented in this encounter Care Teams Vamp Seamer Relationship Specialty Start Date End Date Shlomo Hu MD [address] [place] [address] PCP - General Internal Medicine 02/15/23 [place] [address] [place] [address] PCP - [place] [employer] 08/14/23 Shlomo Hu MD [address] [place] [address] PCP - [place] [employer] 05/15/2407/14 Shante Kumar APRN-LOCAL SALES MANAGER [address] [place] [address] PCP - [place] [employer] 07/15/24, DUKE Pittman [address] [place] [address] Licensed Practical Nurse Family Medicine 01/19/24 10/21/24 Claribel Scott, RN [address] [place] [address] Licensed Practical Nurse Family Medicine 10/21/24 12/06/24 Jess Marsh LPN [address] [place] [address] 12/06/24 Esthela Tesfaye, KIRA [address] [place] [address] Conveyor Installer Family Medicine 02/03/25 documented as of this encounter
--- OUTSIDE RECORDS SUMMARY | 2025-03-28 09:18 | XMS_ITS | Encounter Summary ---
Author Organization [facility] Address [address] [place] [address] Care Team Providers Care Arboriculture Instructor Name Role Phone Jacob Sharp Unavailable Rasheeda Newton RD Unavailable [phone] Unavailable [phone] Fritz HENDERSON MD, Shlomo Momin Primary Care Provider [phone] Yuan Miller MD, PhD Unavailable [phone] Source Comments In the event this information is protected by the Federal Confidentiality of Alcohol and Drug AbusePatient Records regulations: The Federal rules restrict any use of the information to criminally investigate or prosecute any alcohol or drug abuse patient.[facility] Encounter Details Date Type Department Care Team (Late st Contact Info) Description 05/09/2024 Get Medical Advice Neurological Latter Day [address] [place], [place] [phone] Violeta Pennington MD [address] [place] [address] Symptoms Social History Tobacco Use Types Packs/Day Years [...] in a chcf (including now)? No 02/16/2024 Area Deprivation Index Answer Date Reagan rded National Score (1-100), lower number is lower ri sk 63 03/05/2023 State Score (1-10), lower number is lower risk 4 03/05/2023 Data from: https://www.neighborhoodatlas.medicine.[facility].edu/. Last address used for calculation [address] [...] encounter Miscellaneous Notes * Telephone Encounter - Violeta Pennington MD - 05/11/2024 10:01 AM EDT Thank you both for your prompt response and insights. Because of her complex medical history, I didn't want to just assume it is all FND before I get to know her more. I did get a sense of strong frustration (understanbly) from her during the group visit. Thank you for your attention to this! * Telephone Encounter - Violeta Pennington MD - 05/11/2024 9:12 AM EDT Simon Quan, this patient reached out to me for her episodes, unfortunately I haven't seen her yet 1:1 except for the group visit, her appointment is not until June. I feel my input is going to be limited without actually seeing her. Would you be able to respond to her as well ? Thank you! documented in this encounter Plan of Treatment Upcoming Encounters Date Type Department Care Team (Latest Contact Info) Description 03/31/2025 11:00 AM EDT Office Visit General Surgery [address] [id number] Michael Mora PA-C [address] [place] [id number] follow up- add on ok'd by Michael 04/07/2025 1:00 PM EDT [facility] Neurological Latter Day [address] [place] [address] [id number] Agatha Kim PSYD [address] [place] [address] 04/19/2025 11:00 AM EDT [facility] Neurological [facility] Day [address] [place] [address] Joann Loera APRN.DIRECTOR NURSES' REGISTRY [address] [place] [address] Cognitive movement issues 04/21/2025 8:30 AM EDT [facility] Nutrition Therapy [address] [phone] Tiffany Banks, DIONNE [address] [place] [address] f/u TF forula tolerance and hydration 05/29/2025 9:00 AM EDT [facility] Gastroenterology [address] [id number] Johanna Martinez MD [facility] [address] [place], [place] [id number] 3 month follow up 06/28/2025 10:00 AM EDT [facility] Neurology Pain [address] [place] [address] [place] [address] [id number] Follow up for pain documented as of this encounter Visit Diagnoses Not on filedocumented in this encounter Additional Health Concerns Infection Onset Date Last Indicated Resolved Time COVID-19 Rule-Out 07/29/2024 07/29/2024 07/29/2024 7:20 PM EST documented as of this encounter Care Teams Arboriculture Instructor Relationship Specialty Start Date End Date Shlomo Hu II, MD [address] [facility] 110 [place] [address] PCP - General Internal Medicine 10/06/23 Jacob Sharp [address] [phone] Referring 04/30/[address] [place] [id number] Registered Dietitian Nutrition 06/24/[address] [place], [place] [phone] Registered Dietitian Nutrition 08/27/23 Yuan Miller MD, PhD [address] [id number] Surgeon General Surgery 02/03/24 documented as of this encounter
--- OUTSIDE RECORDS SUMMARY | 2025-03-28 09:18 | XMS_ITS | Encounter Summary ---
Author Organization [facility] Address [address] [place] [address] Care Team Providers Care Fence Rider Name Role Phone Jacob Sharp Unavailable Rasheeda Newton RD Unavailable [phone] Unavailable [phone] Fritz HENDERSON MD, Shlomo Momin Primary Care Provider [phone] Yuan Miller MD, PhD Unavailable [phone] Source Comments In the event this information is protected by the Federal Confidentiality of Alcohol and Drug AbusePatient Records regulations: The Federal rules restrict any use of the information to criminally investigate or prosecute any alcohol or drug abuse patient.[facility] Encounter Details Date Type Department Care Team (Late st Contact Info) Description 04/20/2024 Get Medical Advice General Surgery [address] [place] [address] Michael Mora PA-C [address] [place] [address] Feeding tube Social History Tobacco Use Types [...] in a assisted (including now)? No 02/16/2024 Area Deprivation Index Answer Date Reagan rded National Score (1-100), lower number is lower ri sk 63 03/05/2023 State Score (1-10), lower number is lower risk 4 03/05/2023 Data from: https://www.neighborhoodatlas.medicine.[facility].edu/. Last address used for calculation [address] [...] Assessment Author No 02/21/2024 2:13 PM EDT Chlele Connell RN * Are you blind or [...] Visit General Surgery [address] [place] [address] Michael Mora PA-C [address] [place] [address] follow up- add on ok'd by Michael 04/07/2025 1:00 PM EDT [facility] Neurological [facility] [address] [place] [phone] Agatha Kim PSYD [address] [place] [address] 04/19/2025 11:00 AM EDT [facility] Neurological Latter Day [address] [place] [address] Joann Loera APRN.LEAD SEWAGE PLANT OPERATOR [address] [id number] Cognitive movement issues 04/21/2025 8:30 AM EDT [facility] Nutrition Therapy [address] [phone] Tiffany Banks, RD [address] [place] [id number] f/u TF forula tolerance and hydration 05/29/2025 9:00 AM EDT [facility] Gastroenterology [address] [phone] Johanna Martinez MD [facility] [address] [place], [place] [address] 3 month follow up 06/28/2025 10:00 AM EDT [facility] Neurology Pain [address] [place] [id number] [place] [address] [address] [id number] Follow up for pain documented as of this encounter Visit Diagnoses Not on filedocumented in this encounter Additional Health Concerns Infection Onset Date Last Indicated Resolved Time COVID-19 Confirmed Comment:Anticipate 10 day isolation 04/12/2024 04/18/202404/14 8:51 PM EDT COVID-19 Rule-Out 07/29/2024 07/29/2024 07/29/2024 7:20 PM EST documented as of this encounter Care Teams Fence Rider Relationship Specialty Start Date End Date Shlomo Hu II, MD [address] [place] [address] PCP - General Internal Medicine 10/06/23 Jacob Sharp [address] [place] [address] Referring 04/30/[address] [place] [address] Registered Dietitian Nutrition 06/24/[address] [place] [address] Registered Dietitian Nutrition 08/27/23 Yuan Miller MD, PhD [address] [place] [address] Surgeon General Surgery 02/03/24 documented as of this encounter
--- OUTSIDE RECORDS SUMMARY | 2025-03-28 09:18 | XMS_ITS | Encounter Summary ---
Author Organization [facility] Address [address] [place] [address] Care Team Providers Care Report Analyst Name Role Phone Jacob Sharp Unavailable Rasheeda Newton RD Unavailable [phone] Unavailable [phone] Fritz HENDERSON MD, Shlomo Momin Primary Care Provider [phone] Yuan Miller MD, PhD Unavailable [phone] Source Comments In the event this information is protected by the Federal Confidentiality of Alcohol and Drug AbusePatient Records regulations: The Federal rules restrict any use of the information to criminally investigate or prosecute any alcohol or drug abuse patient.[facility] Encounter Details Date Type Department Care Team (Late st Contact Info) Description 04/20/2024 Get Medical Advice General Surgery [address] [place] [address] Michael Mora PA-C [address] [place] [address] Home health aide at [facility] Social History Tobacco Use Types Packs/Day Years [...] lower risk 4 03/05/2023 Data from: https://www.neighborhoodatlas.medicine.[facility].edu/. Last address used for calculation [address] 03/05/2023 Comments No [...] AM EDT Office Visit General Surgery [address] [place] [address] Michael Mora PA-C [address] [place] [address] follow up- add on ok'd by Michael 04/07/2025 1:00 PM EDT [facility] Neurological [facility] [address] [place] [address] Agatha Kim PSYD [address] [place] [phone] 04/19/2025 11:00 AM EDT [facility] Neurological Pentecostal [address] [place] [address] [phone] Joann Loera APRN.SECURITY SYSTEM INSTALLER [address] [place] [address] Cognitive movement issues 04/21/2025 8:30 AM EDT [facility] Nutrition Therapy [address] [place] [address] [place] [address] f/u TF forula tolerance and hydration 05/29/2025 9:00 AM EDT [facility] Gastroenterology [address] [place] [address] Johanna Martinez MD [facility] [address] [place] [address] 3 month follow up 06/28/2025 10:00 AM EDT [facility] Neurology Pain [address] [place] [address] [place] [address] [place] [address] Follow up for pain documented as of this encounter Visit Diagnoses Not on filedocumented in this encounter Additional Health Concerns Infection Onset Date Last Indicated Resolved Time COVID-19 Confirmed Comment:Anticipate 10 day isolation 04/12/2024 04/18/202404/14 8:51 PM EDT COVID-19 Rule-Out 07/29/2024 07/29/2024 07/29/2024 7:20 PM EST documented as of this encounter Care Teams Report Analyst Relationship Specialty Start Date End Date Shlomo Hu II, MD [address] [place] [address] PCP - General Internal Medicine 10/06/23 Jacob Sharp [address] [facility] [place] [address] Referring 04/30/[address] [place] [address] Registered Dietitian Nutrition 06/24/[address] [place] [address] Registered Dietitian Nutrition 08/27/23 Yuan Miller MD, PhD [address] [place] [address] Surgeon General Surgery 02/03/24 documented as of this encounter
--- OUTSIDE RECORDS SUMMARY | 2025-03-28 09:18 | XMS_ITS | Encounter Summary ---
[id number] [address] [place] [address] Care Team Providers Care Spot Worker Name Role Phone Gamal Echavarriagarth Dumont APRN-PRINCIPAL SOLUTIONS ARCHITECT Primary Care Provider + Encounter Details Date Type Department Care Team (Late st Contact Info) Description 08/05/2024 Telephone [facility] Obstetrics/Gynecology [address] [place] [address] Nithya Sinclair CMA Social History Tobacco Use Types Packs/Day Years [...] How often do you attend chur or orthodoxy services? Patient declined 05/08/2022 Do you belong [...] 12/04/2023 PHQ-2 Answer Date Recorded Total Score 3 02/10/2024 [facility] of Occupat ional Health - [...] Recorded Do you need help finding a [facility] and/or a training program? No 05/08/2022 Hunger Screening Answer Date Recorded Within the past 12 months we worried whether our food would run out before we got money to buy more. Never True 02/10/2024 Within the past 12 months th e food we bought just didn't last and we didn't have money to get more. Never True 02/10/2024 Purpose - Life Answer Date Recorded I [...] encounter Miscellaneous Notes * Telephone Encounter - Nithya Sinclair CMA - 08/05/2024 8:18 AM EST Pt called stating she has a current yeast infection and she was given Diflucan, but she has a lot of vaginal itching and discomfort on the outside of her vagina. Patient was recently discharged from [facility] and was on a lot of antibiotics. Patient would also like to know if there is anything else she can do at home for some relief. * Telephone Encounter - NESSA Mooney - 08/05/2024 8:18 AM EST Rx sent. Patient can try oral benadryl at home and soaking in a warm bath. documented in this encounter Plan of Treatment Not on file documented as of this encounter Goals Goal Patient Goal Type Associated Problems Recent Progress Patient-Stated? Author safe discharge to home General Yes Soledad Oliva, PIETRO Note: Evaluation of progress towards goal: safe transition from hospital to home with family support. documented as of this encounter Visit Diagnoses Not on filedocumented in this encounter Additional Health Concerns Assessment Noted Time PHQ-9 Depression Total Score: 3 02/10/20 24 11:55 AM EDT A Body Mass Index follow-up plan has been documented for the patient 05/13/2022 11:13 AM EDT documented as of this encounter Care Teams Spot Worker Relationship Specialty Start Date End Date Skylar Echavarria APRN-CNP [address] [place] [address] PCP - General Internal Medicine 11/18/23 documented as of this encounter
--- OUTSIDE RECORDS SUMMARY | 2025-03-28 09:18 | XMS_ITS | Encounter Summary ---
Author Organization [facility] Address [address] [facility] [place] [address] Care Team Providers Care District Administrative Assistant Name Role Phone Shlomo Hu MD Primary Care Provider Jacob Sharp BEAM PRESS OPERATOR Unavailable [phone] Thursday, Toya STONE BANKER Unavailable [phone] Shlomo Hu MD Unavailable [phone] Shante Kumar TECHNICAL SPECIALIST-URANIUM PROCESSING SUPERVISOR Unavailable Claribel Scott RN Unavailable Maximo Jess STONE BANKER Unavailable Esthela Tesfaye MELON PACKER Unavailable [phone] Encounter Details Date Type Department Care Team (Late st Contact Info) Description 03/27/2023 Abstract [facility] 112 [facility] 110 [place] [address] Shlomo Hu MD 112 [facility] [address] [place] [address] Social History Tobacco Use Types [...] How often do you attend chur or evangelical services? Patient declined 03/01/2023 Do [...] medical care, and heating? Somewhat hard 03/01/2023 [facility] [place] of Occupat ional Health - Occupational Stress [...] suspected to have Coronavirus/COVID-19? No / Unsure 03/01/2023 4:37 PM EDT documented as of this encounter Plan of Treatment Upcoming Encounters Date Type Department Care Team (Late st Contact Info) Description 04/12/2025 9:50 AM EDT Office Visit [facility] [address] [place] [address] Tanya Lozano MD [address] [place] [address] 04/20/2025 3:00 PM EDT Office Visit [facility] [address] [place] [address] Sonny Rodriguez, DPM [address] [facility] 5 [place] [address] 05/04/2025 2:50 PM EDT Office Visit [facility] [address] [place] [address] Sonny Rodriguez, DPM [address] [facility] 5 [place] [address] documented as of this encounter Visit Diagnoses Not on filedocumented in this encounter Care Teams District Administrative Assistant Relationship Specialty Start Date End Date Shlomo Hu MD [address] [place] [address] PCP - General Internal Medicine 02/15/23 [place] [address] [place] [address] PCP - [place] [employer] 08/14/23 Shlomo Hu MD [address] [place] [address] PCP - [place] [employer] 05/15/2407/14 Shante Kumar APRN-URANIUM PROCESSING SUPERVISOR [address] [place] [address] PCP - [place] [employer] 07/15/24, DUKE Pittman [address] [place] [address] Licensed Practical Nurse Family Medicine 01/19/24 10/21/24 Claribel Scott, RN [address] [place] [address] Licensed Practical Nurse Family Medicine 10/21/24 12/06/24 Jess Marsh LPN [address] [place] [address] 12/06/24 Esthela Tesfaye, KIRA [address] [place] [address] Housekeeper Supervisor Family Medicine 02/03/25 documented as of this encounter
--- OUTSIDE RECORDS SUMMARY | 2025-03-28 09:18 | XMS_ITS | Encounter Summary ---
Author Organization [facility] Address [address] [place] [address] Phone Care Team Providers Care Educational Institution Curator Name Role Phone Yg James MD Primary Care Provider [phone] Shlomo Hu MD Primary Care Provider [phone] Encounter Details Date Type Department Care Team (Late st Contact Info) Description 05/27/2011 Scanned Document [facility] [address] [place] [id number] Scanning, Generic Provider Social History Tobacco Use [...] documented as of this encounter Care Teams Educational Institution Curator Relationship Specialty Start Date End Date Yg James MD PCP - General 09/14/17 12/20/24 Shlomo Hu MD [address] [facility] [address] [place], [place] [id number] PCP - General Internal Medicine 12/21/24 documented as of this encounter
--- OUTSIDE RECORDS SUMMARY | 2025-03-28 09:18 | XMS_ITS | Encounter Summary ---
Author Organization [facility] [employer] [facility] [employer] Address [id number] [address] [place] [address] Care Team Providers Care R[employer]her [employer]chant Mill Name Role Phone JerichoGamal leivagarth Dumont APRN-RACING MECHANIC Primary Care Provider + Encounter Details Date Type Department Care Team (Late st Contact Info) Description 12/09/2023 Orders Only [facility] Internal Medicine - Family Medicine [address] [place] [address] Sandrita Rodriguez CMA Severe protein-calorie malnutrition ([facility]) Social History Tobacco Use Types Packs/Day Years [...] any clubs o r organizations such as latter-day groups, unions, fraternal or athletic groups, or [...] Answer Date Recorded Total Score 0 12/03/2023 [facility] Health - Occupational Stress Questionnaire Answer Date [...] Recorded Do you need help finding a [facility] career center and/or a training program? [...] Associated Diagnosis Comments MULTIPLE LABS Routine 12/02/2023 2:16 PM EDT COPPER, SERUM Routine 12/02/2023 10:42 AM EDT Severe protein-calorie malnutrition (CMS-HCC) ZINC Routine 12/02/2023 10:42 AM EDT Severe protein-calorie malnutrition (CMS-HCC) VITAMIN A (RETINOL) Routine 12/02/2023 10:42 AM EDT Severe protein-calorie malnutrition (CMS-HCC) documented in this encounter Results * Multiple labs (12/02/2023 2:16 PM EDT) Skylar Echavarria APRN-RACING MECHANIC IA IMAGING Final Re sult MANUALLY TRANSCRIBED RESULTS * Zinc (12/02/2023 10:42 AM EDT) Zinc 594 SUNQUEST Blood 12/02/2023 10:4 2 AM EDT Skylar Echavarria APRN-RACING MECHANIC LAB BLOOD ORDERABLES Fin al Result SUNQUEST * Copper, serum (12/02/2023 10:42 AM EDT) Copper 125 SUNQUEST Blood 12/02/2023 10:4 2 AM EDT Skylar Echavarria STEEL MELTER-RACING MECHANIC LAB BLOOD ORDERABLES Fin al Result Performing Organization Address [facility] de Phone Number SUNQUEST * Vitamin A (Retinol) (12/02/2023 10:42 AM EDT) Free retinol vit A 17.9 L SUNQUEST Blood 12/02/2023 10:4 2 AM EDT Skylar Echavarria APRN-RACING MECHANIC LAB BLOOD ORDERABLES Fin al Result Performing Organization Address [facility] de Phone Number SUNQUEST documented in this encounter Visit Diagnoses Diagnosis Severe protein-calorie malnutrition Other severe protein-calorie malnutrition documented in this encounter Additional Health Concerns Assessment Noted Time PHQ-9 Depression Total Score: 0 12/03/19 11:11 AM EDT A Body Mass Index follow-up plan has been documented for the patient 05/13/2022 11:13 AM EDT documented as of this encounter Care Teams [employer] Relationship Specialty Start Date End Date Skylar Echavarria APRN-CNP [address] [place] [address] PCP - General Internal Medicine 11/18/23 documented as of this encounter
--- OUTSIDE RECORDS SUMMARY | 2025-03-28 09:18 | XMS_ITS | Encounter Summary ---
Author Organization [facility] Address [facility] [place] [address] Care Team Providers Care Glass Inspector Name Role Phone Sean Ruiz DO Primary Care Provider [phone] Jacob Sharp Unavailable Rasheeda Newton RD Unavailable [phone] Unavailable [phone] Fritz HENDERSON MD, Shlomo Momin Primary Care Provider [phone] Yuan Miller MD, PhD Unavailable [phone] Source Comments In the event this information is protected by the Federal Confidentiality of Alcohol and Drug AbusePatient Records regulations: The Federal rules restrict any use of the information to criminally investigate or prosecute any alcohol or drug abuse patient.[facility] Encounter Details Date Type Department Care Team (Late st Contact Info) Description 04/03/2023 Patient Msg General Surgery [address] [place] [address] Provider, Ccf order Social History Tobacco Use Types Packs/Day Years [...] is lower risk 4 03/05/2023 Data from: https://www.neighborhoodatlas.medicine.[facility].edu/. Last address used for calculation [address] [...] hearing? Answer Date of Assessment Author No 09/30/2022 3:03 PM Liliane Cobb RN * Are you blind or do you have serious difficulty seeing, even when wearing glasses? Answer Date of Assessment Author No 09/30/2022 3:03 PM Liliane Cobb RN * Do you have serious difficulty walking or climbing stairs? Answer Date of Assessment Author No 09/30/2022 3:03 PM Liliane Cobb RN * Do you have difficulty dressing or bathing? Answer Date of Assessment Author No 09/30/2022 3:03 PM Liliane Cobb RN * Because of a physical, mental, or emotional condition, do you have difficulty doing errands alone such as visiting a doctor's office or shopping? Answer Date of Assessment Author No 09/30/2022 3:03 PM Liliane Cobb RN documented as of this encounter Mental Status * Because of a physical, mental, or emotional condition, do you have serious difficulty concentrating, remembering, or making decisions? Answer Entry Date Author No 09/30/2022 3:03 PM Liliane Cobb RN documented in this encounter Plan of Treatment Upcoming Encounters Date Type Department Care Team (Latest Contact Info) Description 03/31/2025 11:00 AM EDT Office Visit General Surgery [address] [place] [address] Michael Mora PA-C [address] [place], [place] [id number] follow up- add on ok'd by Michael 04/07/2025 1:00 PM EDT [facility] [address] [id number] Agatha Kim PSYD [address] [id number] 04/19/2025 11:00 AM EDT [facility] [address] [place] [address] Joann Loera APRN.NEUROPSYCHOLOGY DIRECTOR [address] [place] [address] Cognitive movement issues 04/21/2025 8:30 AM EDT [facility] Nutrition Therapy [address] [id number] Tiffany Banks, RD [address] [place] [address] f/u TF forula tolerance and hydration 05/29/2025 9:00 AM EDT [facility] Gastroenterology [address] [id number] Johanna Martinez MD [facility] [address] [place], [place] [id number] 3 month follow up 06/28/2025 10:00 AM EDT [facility] Neurology Pain [address] [place] [address] [place] [address] [place] [address] Follow up for pain documented as of this encounter Visit Diagnoses Not on filedocumented in this encounter Additional Health Concerns Infection Onset Date Last Indicated Resolved Time C. difficile 09/12/2022 09/12/2022 04/09/2023 8:32 AM EDT COVID-19 Rule-Out 01/04/2024 01/04/2024 01/04/2024 5:37 PM EDT Respiratory Rule-Out 01/04/2024 01/04/2024 024 5:37 PM EDT COVID-19 Rule-Out 04/12/2024 04/12/2024 04/12/2024 3:56 PM EDT COVID-19 Confirmed Comment:Anticipate 10 day isolation 04/12/2024 04/18/2024 0801/2024 8:51 PM EDT COVID-19 Rule-Out 04/18/2024 04/18/2024 04/18/2024 2:28 PM EDT COVID-19 Rule-Out 07/29/2024 07/29/2024 07/29/2024 7:20 PM EST documented as of this encounter Care Teams Glass Inspector Relationship Specialty [place] [address] [place] [address] PCP - General Family Medicine 07/09/12 10/05/23 Shlomo Hu II, MD [address] [address] PCP - General Internal Medicine 10/06/23 Jacob Sharp [address] [place] [address] Referring 04/30/[address] [place] [address] Registered Dietitian Nutrition 06/24/[address] [place] [address] Registered Dietitian Nutrition 08/27/23 Yuan Miller MD, PhD [address] [place] [address] Surgeon General Surgery 02/03/24 documented as of this encounter
--- OUTSIDE RECORDS SUMMARY | 2025-03-28 09:18 | XMS_ITS | Encounter Summary ---
Author Organization [facility] Address [address] [place] [address] Care Team Providers Care Medical Records Assistant Name Role Phone Shlomo Hu MD Primary Care Provider [phone] Jacob Sharp ACTIVITIES ASSISTANT Unavailable Thursday, Toya VIRTUAL REALITY SPECIALIST Unavailable [phone] Shlomo Hu MD Unavailable [phone] Shante Kumar EMPLOYMENT ADJUDICATOR-RELAY ASSEMBLER Unavailable Claribel Scott RN Unavailable Jess Marsh VIRTUAL REALITY SPECIALIST Unavailable Esthela Tesfaye OIL TRUCK DRIVER Unavailable [phone] Encounter Details Date Type Department Care Team (Late st Contact Info) Description 06/26/2023 Clinisync Result Encounter [facility] External Department Unsolicited [...] How often do you attend chur or mormonism services? Patient declined 03/01/2023 Do [...] medical care, and heating? Somewhat hard 03/01/2023 [facility] - [...] [facility] [address] [place] [address] Tanya Lozano MD [address] [place] [address] 04/20/2025 3:00 PM EDT Office Visit [facility] [address] [place] [phone] Sonny Rodriguez, DPM [address] [facility] [address] [place] [address] 05/04/2025 2:50 PM EDT Office Visit [facility] [address] [place] [phone] Sonny Rodriguez, DPM [address] [facility] [address] [place] [address] documented as of this encounter Procedures Procedure Name Priority Date/Time Associated Diagnosis Comments [facility] VIT B12 SERPL-MCNC Routine 06/26/2023 11:08 AM EDT [facility] RETICS # Routine 06/26/2023 11:08 AM EDT [facility] IRON+TIBC PNL SERPL Routine 06/26/2023 11:08 AM EDT CCF FERRITIN SERPL-MCNC Routine 06/26/2023 11:08 AM EDT CCF CRP SERPL-MCNC Routine 06/26/2023 11 :08 AM EDT CCF CBC W AUTO DIFF BLD Routine 06/26/2023 11:08 AM EDT CCF 25(OH)D3 SERPL-MCNC Routine 06/26/2023 11:08 AM EDT C[facility] COMP METAB 2000 PNL SERPL Routine 06/26/2023 11:08 AM EDT UPPER EUS 06/26/2023 7:59 AM EDT documented in this encounter Results * (ABNORMAL) [facility] FERRITIN SERPL-MCNC (06/26/2023 11:08 AM EDT) [facility] FERRITIN SERPL-MCNC 349.0(H) 14.7 - 205.1 ng/mL CCF 06/26/2023 11:0 8 AM EDT 06/26/2023 4:46 PM EDT Narrative CLINISYNC - 06/26/2023 9:44 PM EDT Specimen Type: BLOOD SPECIMEN Ordering Facility: [facility] Address: [address] [place] [address] Original Ordering Provider: RIP RIDLEY Generic External Data Provider CLINISYNC F inal Result Performing Organization Address [facility] Co de Phone Number CLINISYNC CCF [address] [address] * CCF VIT B12 SERPL-MCNC (06/26/2023 11:08 AM EDT) CCF VIT B12 SERPL-MCNC 434 232 - 1,245 pg/mL CCF 06/26/2023 11:0 8 AM EDT 06/26/2023 4:46 PM EDT Narrative CLINISYNC - 06/26/2023 9:44 PM EDT Specimen Type: BLOOD SPECIMEN Ordering Facility: [facility] Address: [address] [place] [address] Original Ordering Provider: MAGED PERSAUD us Generic External Data Provider CLINISYNC F inal Result Performing Organization Address [facility] Co de Phone Number CLIN[facility]NC [facility] [address] [address] * (ABNORMAL) CCF 25(OH)D3 SERPL-MCNC (06/26/2023 11:08 AM EDT) CCF 25(OH)D3 SERPL-MCNC 19.6(L) 31.0 - 80.0 ng/mL CCF Comment: Classification of 25 [place] Vitamin D status: Deficiency/Insufficiency: < or = 30 ng/ml. Sufficiency/Optimal Levels: 31-80 ng/mL Toxicity: > 100 ng/mL. Test performed by chemiluminescent immunoassay. 06/26/2023 11:0 8 AM EDT 06/26/2023 4:55 PM EDT Narrative CLINISYNC - 06/26/2023 8:51 PM EDT Specimen Type: BLOOD SPECIMEN Ordering Facility: [facility] Address: [address] [place] [address] Original Ordering Provider: MAGED PERSAUD Generic External Data Provider CLINISYNC F inal Result Performing Organization Address [facility] de Phone Number CLINISYNC CC [address] [phone] * CCF IRON+TIBC PNL SERPL (06/26/2023 11:08 AM EDT) CCF IRON SERPL-MCNC 109 41 - 186 ug/dL CCF CCF TIBC SERPL-MCNC 364 232 - 386 ug/dL CCF CCF IRON/TIBC SERPL-SRTO 29.9 15.0 - 57.0 % CCF 06/26/2023 11:0 8 AM EDT 06/26/2023 4:46 PM EDT Narrative CLINISYNC - 06/26/2023 8:50 PM EDT Specimen Type: BLOOD SPECIMEN Ordering Facility: [facility] Address: [address] [place] [address] Original Ordering Provider: RIP RIDLEY Generic External Data Provider CLINISYNC F inal Result Performing Organization Address [facility] Co de Phone Number CLINIS[facility]NC CC [address] [address] * CCF CRP SERPL-MCNC (06/26/2023 11:08 AM EDT) CCF CRP SERPL-MCNC <0.3 <0.9 mg/dL CCF 06/26/2023 11:0 8 AM EDT 06/26/2023 4:46 PM EDT Narrative MONIKA - 06/26/2023 8:50 PM EDT Specimen Type: BLOOD SPECIMEN Ordering Facility: [facility] Address: [address] [id number] Original Ordering Provider: MAGED PERSAUD us Generic External Data Provider CLINISYNC F inal Result CLINISYNC [facility]CF [address] [facility] [address] [phone] * (ABNORMAL) CCF COMP METAB 2000 PNL SERPL (06/26/2023 11:08 AM EDT) CCF PROT SERPL-MCNC 6.9 6.3 - 8.0 g/dL CCF CCF ALBUMIN SERPL-MCNC 4.5 3.9 - 4.9 g/dL CCF CCF CALCIUM SERPL-MCNC 9.5 8.5 - 10.2 mg/dL CCF CCF BILIRUB SERPL-MCNC 0.3 0.2 - 1.3 mg/dL CCF CCF ALP SERPL-CCNC 133(H) 34 - 123 U/L CCF CCF AST SERPL-CCNC 26 13 - 35 U/L CCF CCF ALT SERPL-CCNC 37 7 - 38 U/L CCF CCF GLUCOSE SERPL-MCNC 81 74 - 99 mg/dL CCF Comment: The [place] Diabetes Association (ADA) provides guidance for cutoff [...] Standards of Medical Care in Diabetes 2016, [place] [employer] Association. Diabetes Care. 2016.39(Suppl 1). CCF BUN SERPL-MCNC 10 7 - 21 mg/dL CCF CCF CREAT SERPL-MCNC 0.59 0.58 - 0.96 mg/dL CCF CCF SODIUM SERPL-SCNC 140 136 - 144 mmol/L CCF CCF POTASSIUM SERPL-SCNC 4.3 3.7 - 5.1 mmol/L CCF CCF CHLORIDE SERPL-SCNC 106(H) 97 - 105 mmol/L CCF CCF CO2 SERPL-SCNC 24 22 - 30 mmol/L CCF CCF ANION GAP SERPL-SCNC 10 9 - 18 mmol/L CCF CCF CREATININE + EGFR PNL SERPLBLD 113 >=60 mL/min/1.7 3m??? CCF Comment:Estimated Glomerular Filtration Rate (eGFR) is calculated using the 2020 CKD-EPI creatinine equation. This equation utilizes serum creatinine, sex, and age as parameters. The creatinine assay has traceable calibration to isotope dilution- mass spectrometry. Refer to KDIGO guidelines for clinical interpretation. In patients with unstable renal function, e.g. those with acute kidney injury, the eGFR may not accurately reflect actual GFR. 06/26/2023 11:0 8 AM EDT 06/26/2023 11:08 AM EDT Narrative MONIKA - 06/26/2023 11:33 AM EDT Specimen Type: BLOOD SPECIMEN Ordering Facility: [facility] Address: [address] [place] [address] Original Ordering Provider: MAGED PERSAUD us Generic External Data Provider CLINISYPEDRO Lynch inal Result CLINISYNC CCF [address] [place] [address] * CCF RETICS # (06/26/2023 11:08 AM EDT) CCF RETICS/100 RBC NFR 1.6 0.4 - 2.0 % CCF CCF RETICS # 0.071 0.018 - 0.100 M/uL CCF 06/26/2023 11:0 8 AM EDT 06/26/2023 11:08 AM EDT Narrative MONIKA - 06/26/2023 11:12 AM EDT Specimen Type: BLOOD SPECIMEN Ordering Facility: [facility] Address: [address] [place] [address] [place] [address] Original Ordering Provider: RIP RIDLEY us Generic External Data Provider MONIKA F inal Result CLINISYNC [facility] [address] [place] [address] * CCF CBC W AUTO DIFF BLD (06/26/2023 11:08 AM EDT) CCF WBC # BLD AUTO 6.88 3.70 - 11.00 k/uL CCF CCF RBC # BLD AUTO 4.52 3.90 - 5.20 m/uL CCF CCF HGB BLD-MCNC 13.1 11.5 - 15.5 g/dL CCF CCF HCT VFR BLD AUTO 41.0 36.0 - 46.0 % CCF CCF MCV RBC AUTO 90.7 80.0 - 100.0 fL CCF CCF MCH RBC QN AUTO 29.0 26.0 - 34.0 pg CCF CCF MCHC RBC AUTO-MCNC 32.0 30.5 - 36.0 g/dL CCF CCF RDW RBC-RTO 13.9 11.5 - 15.0 % CCF CCF PLATELET # BLD AUTO 271 150 - 400 k/uL CCF CCF PMV BLD AUTO 9.6 9.0 - 12.7 fL CCF CCF NEUTROPHILS/LEUK NFR BLD AUTO 56.0 % CCF CCF NEUTROPHILS # BLD AUTO 3.86 1.45 - 7.50 k/uL CCF CCF LYMPHOCYTES/LEUK NFR BLD AUTO 33.9 % CCF CCF LYMPHOCYTES # BLD AUTO 2.33 1.00 - 4.00 k/uL CCF CCF MONOCYTES/LEUK NFR BLD AUTO 7.4 % CCF CCF MONOCYTES # BLD AUTO 0.51 <0.87 k/uL CCF CCF EOSINOPHIL/LEUK NFR BLD AUTO 1.2 % CCF CCF EOSINOPHIL # BLD AUTO 0.08 <0.46 k/uL CCF CCF BASOPHILS/LEUK NFR BLD AUTO 1.2 % CCF CCF BASOPHILS # BLD AUTO 0.08 <0.11 k/uL CCF IMM GRANULOCYTES/LEUK NFR BLD AUTO 0.3 % CCF IMM GRANULOCYTES # BLD AUTO <0.03 <0.10 k/uL CCF CCF NRBC/100 WBC BLD-RTO 0.0 /100 WBC CCF CCF NRBC # BLD AUTO <0.01 <0.01 k/uL CCF CCF DIFFERENTIAL METHOD BLD Auto CCF 06/26/2023 11:0 8 AM EDT 06/26/2023 11:08 AM EDT Narrative CLINISYNC - 06/26/2023 11:12 AM EDT Specimen Type: BLOOD SPECIMEN Ordering Facility: [facility] Address: [address] [place] [address] Original Ordering Provider: RIP RIDLEY us Generic External Data Provider CLINISYNC F inal Result Performing Organization Address City/State/[facility] Co de Phone Number CLIN[facility]NC CCF [address] [place] [address] * UPPER EUS (06/26/2023 7:59 AM EDT) Anatomical Region Laterality Modality Other 06/26/2023 7:59 AM EDT Narrative 06/26/2023 8:31 AM EDT Q3 Patient Name: Melina Taveras Procedure Date: 06/26/2023 7:59 AM Date of : 1975 Admit Type: Outpatient Age: 47 Gender: Female Note Status: Finalized Attending MD: Magaly Andrade MD Procedure: Upper EUS Indications: Epigastric abdominal pain, Diarrhea Providers: Magaly Andrade MD Patient Profile: This is a 47 year old female. Refer to note in patient chart for documentation of history and physical. Referring Physician: Maged Persaud MD (Referring MD) Medicines: Monitored Anesthesia Care Complications: No immediate complications. Requesting Provider: Nhi D. Paci Procedure: Pre-Anesthesia Assessment: - Prior to the procedure, a History and Physical was performed, and patient medications, allergies and sensitivities were reviewed. The patient's tolerance of previous anesthesia was reviewed. - ASA Grade Assessment: II - A patient with mild systemic disease. After obtaining informed consent, the endoscope was passed under direct vision. Throughout the procedure, the patient's blood pressure, pulse, and oxygen saturations were monitored continuously. The Endosonoscope was introduced through the mouth, and advanced to the jejunum. The Endoscope was introduced through the mouth, and advanced to the jejunum. The upper GI endoscopy was accomplished without difficulty. The patient tolerated the procedure well. Moderate Sedation: MAC anesthesia was administered by the anesthesia team. Findings: The examined esophagus was normal. The [...] Estimated Blood Loss: Estimated blood loss: none. Recommendation: - Discharge patient to home (ambulatory). - Consider MRI pancreas to complete assessment of the pancreas. - Resume previous diet today. - Continue present medications. - Avoid smoking/vaping, alcohol intake, NSAIDs (ibuprofen/motrin/advil, naproxen, or similars) - Follow up with Dr. Andrade or Nhi Salas CNP in 4-6 weeks in GI/Bariatric Endoscopy clinic. Please call for appointments [phone] or [phone]. Procedure Code(s): --- Professional --- 79692, Esophagogastroduodenoscopy, flexible, transoral; with endoscopic ultrasound examination limited to the esophagus, stomach or duodenum, and adjacent structures Diagnosis Code(s): --- Professional --- R10.13, Epigastric pain R19.7, Diarrhea, unspecified CPT copyright 2020 [place] [employer]. All rights reserved. Attending Participation: I personally performed the entire procedure. Scope In: 8:14:52 AM Scope Out: 8:24:[address] Magaly Andrade MD 06/26/2023 8:31:40 AM This report has been signed electronically by Magaly Andrade MD Number of Addenda: 0 Note Initiated On: 06/26/2023 7:59 AM Procedure Note Radiology, Radiologist, MD - 06/26/2023 Q3 Patient Name: Melina Taveras Procedure Date: 06/26/2023 7:59 AM Date of : 1975 Admit Type: Outpatient Age: 47 Gender: Female Note Status: Finalized Attending MD: Magaly Andrade MD Procedure: Upper EUS Indications: Epigastric abdominal pain, Diarrhea Providers: Magaly Andrade MD Patient Profile: This is a 47 year old female. Refer to note in patient chart for documentation of history and physical. Referring Physician: Maged Persaud MD (Referring MD) Medicines: Monitored Anesthesia Care Complications: No immediate complications. Requesting Provider: Nhi Salas Procedure: Pre-Anesthesia Assessment: - Prior to the procedure, a History and Physical was performed, and patient medications, allergies and sensitivities were reviewed. The patient's tolerance of previous anesthesia was reviewed. - ASA Grade Assessment: II - A patient with mild systemic disease. After obtaining informed consent, the endoscope was passed under direct vision. Throughout the procedure, the patient's blood pressure, pulse, and oxygen saturations were monitored continuously. The Endosonoscope was introduced through the mouth, and advanced to the jejunum. The Endoscope was introduced through the mouth, and advanced to the jejunum. The upper GI endoscopy was accomplished without difficulty. The patient tolerated the procedure well. Moderate Sedation: MAC anesthesia was administered by the anesthesia team. Findings: The examined esophagus was normal. 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 No ulcers, fistulas or stenosis. - Normal esophagus. No hiatal hernia. No esophagitis. - Normal jejunum. - No specimens collected. Estimated Blood Loss: Estimated blood loss: none. Recommendation: - Discharge patient to home (ambulatory). - Consider MRI pancreas to complete assessment of the pancreas. - Resume previous diet today. - Continue present medications. - Avoid smoking/vaping, alcohol intake, NSAIDs (ibuprofen/motrin/advil, naproxen, or similars) - Follow up with Dr. nAdrade or Nhi Salas CNP in 4-6 weeks in GI/Bariatric Endoscopy clinic. Please call for appointments [phone] or [phone]. Procedure Code(s): --- Professional --- 26467, Esophagogastroduodenoscopy, flexible, transoral; with endoscopic ultrasound examination limited to the esophagus, stomach or duodenum, and adjacent structures Diagnosis Code(s): --- Professional --- R10.13, Epigastric pain R19.7, Diarrhea, unspecified CPT copyright 2020 [place] [employer]. All rights reserved. Attending Participation: I personally performed the entire procedure. Scope In: 8:14:52 AM Scope Out: 8:24:[address] Magaly Andrade MD 06/26/2023 8:31:40 AM This report has been signed electronically by Magaly Andrade MD Number of Addenda: 0 Note Initiated On: 06/26/2023 7:59 AM us Generic External Data Provider [facility]IN[facility] IMAGING Final Result documented in this encounter Visit Diagnoses Not on filedocumented in this encounter Care Teams Medical Records Assistant Relationship Specialty Start Date End Date Shlomo Hu MD [address] [facility] [address] [place] [address] PCP - General Internal Medicine 02/15/23 [place] [address] [place] [phone] PCP - [employer] 08/14/23 Shlomo Hu MD [address] [facility] [address] [place] [address] PCP - [employer] 05/15/2407/14 Shante Kumar, EMPLOYMENT ADJUDICATOR-RELAY ASSEMBLER [address] [facility] [address] [place] [address] PCP - [employer] 07/15/24 ThursdayToya LPN [address] [facility] [address] [place] [address] Licensed Practical Nurse Family Medicine 01/19/24 10/21/24 Claribel Scott, RN [address] [place] [address] Licensed Practical Nurse Family Medicine 10/21/24 12/06/24 Jess Marsh LPN [address] [facility] [address] [place] [address] 12/06/24 Esthela Tesfaye LSW [address] [place] [address] Energy Systems Engineer Family Medicine 02/03/25 documented as of this encounter
--- OUTSIDE RECORDS SUMMARY | 2025-03-28 09:18 | XMS_ITS | Clinical Summary ---
Author Organization [facility] Address [id number] [address] [place] [address] Care Team Providers Care Sunglass Clip Attacher Name Role Phone Jericho, Skylar Dumont APRN-BACKPACKERS MANAGER Primary Care Provider + Allergies Active Allergy Reactions Criticality Noted Date Comments Adhesive Tape-Silicones Rash Low 05/16/2021 Aspartame Headache,Nausea 05/21/2022 Doxycycline Rash Low 11/18/2023 Ketorolac Tromethamine Hives,Swelling 2 Morphine Hives 12/12/2015 Nsaids (Non-Steroidal Anti-Inflammatory Drug) Other (See Comments) 07/29/2022 S/p gelacio en y gastric bypass Adhesive Itching,Rash,Swellin g Low 12/12/2015 Tramadol Hives,Swelling 01/01/2022 Medications cyanocobalamin (VITAMIN B-12) 1,000 mcg/mL injection Inject 1 mL (1,000 mcg total) into the appropriate muscle once a week. Active multivitamin capsule Take 1 capsule by mouth in the morning. Active diphenhydrAMINE (BENADRYL) 12.5 mg/5 mL elixir Take by mouth 4 (four) times a day as needed for itching. Active sucralfate (CARAFATE) 1 gram tablet Take 1 tablet (1 g total) by mouth in the morning and 1 tablet (1 g total) at noon and 1 tablet (1 g total) in the evening and 1 tablet (1 g total) before bedtime. 120 tablet 3 05/08/20 Active Additional Information Patient not taking.Reported on 09/21/2024 prochlorperazine (COMPAZINE) 5 mg tablet Take 1 tablet (5 mg total) by mouth every 6 (six) hours as needed for nausea or vomiting. 30 tablet 05/08/20 22 Active dextroamphetamine- amphetamine (ADDERALL) 20 mg tablet Take 1 tablet (20 mg total) by mouth in the morning. 04/14/20 22 Active oxyCODONE (ROXICODONE) 5 mg/5 mL solution Take 5 mL (5 mg total) by mouth every 4 (four) hours as needed. 04/11/20 22 Active pantoprazole (PROTONIX) [address] for susp in packet daily. 05/04/20 22 Active eletriptan (RELPAX) 40 mg tablet As needed for migranes Active estradioL (ESTRACE) 0.01 % (0.1 mg/gram) vaginal creamIndications:P ost-menopause atrophic vaginitis insert 1 gram vaginally two times a week 42.5 g 02/07/20 23 Active levothyroxine (SYNTHROID, LEVOTHROID) 50 MCG tablet Take 1 tablet (50 mcg total) by mouth in the morning. 08/16/20 22 Active zinc-vit C-pyridoxine, vit B6, 12-60-0.5 mg lozenge Daily 10/08/19 24 Active ALPRAZolam (XANAX) 0.5 mg tablet Take 1 tablet (0.5 mg total) by mouth as needed. 10/08/19 24 Active baclofen 5 mg tablet Q8H 07/20/20 23 Active cholecalciferol, vitamin D3, 25 mcg (1,000 unit) capsule 1 capsule (1,000 Units total). 10/08/19 24 Active dicyclomine (BENTYL) 20 mg tablet Twice daily 07/20/20 23 Active Ringer's solution,lactated (lactated ringer's) infusion Infuse 100 mL/hr into a venous catheter as needed. 10/27/19 24 Active ondansetron ODT (ZOFRAN ODT) 8 mg disintegrating tablet Dissolve 1 tablet (8 mg total) on tongue every 8 (eight) hours as needed for nausea or vomiting. 08/17/20 23 Active venlafaxine XR (EFFEXOR XR) 75 mg 24 hr capsuleIndications :anxiety with depression Take 1 capsule (75 mg total) by mouth in the morning. Indications: anxiousness associated with depression. Active octreotide (SandoSTATIN) 100 mcg/mL injection Infuse 1 mL (100 mcg total) into a venous catheter 3 (three) times a day. Active OLANZapine (ZyPREXA) 5 mg tablet Take 1 tablet (5 mg total) by mouth nightly. Active muudrq-ydwmywbx-tm ylase (CREON) 24,000-76,000 -120,000 unit capsule,delayed release(DR/EC) Take 1 capsule (24,000 units of lipase total) by mouth in the morning and 1 capsule (24,000 units of lipase total) at noon and 1 capsule (24,000 units of lipase total) in the evening. Take with meals. Active hydrOXYzine (ATARAX) 10 mg tablet Take 1 tablet (10 mg total) by mouth every 8 (eight) hours as needed. 11/18/19 24 Active cholecalciferol, vitD3,/vit K2 (vitamin D3-vitamin K2) 125-90 mcg capsuleIndications :Vitamin D deficiency Take 1 capsule by mouth in the morning. 100 capsule 3 12/03/19 24 Active gabapentin (NEURONTIN) 300 mg capsuleIndications :Pain in extremity at multiple sites Take 1 capsule (300 mg total) by mouth 2 (two) times a day as needed (numbness and tingling lower extremities). 60 capsule 01/01/20 24 Active Additional Information Patient taking differently:300 mg oral 2 times daily PRN, numbness and tingling lower extremities,Takes 2 pills TID - increased by PM, Reported on 09/21/2024 metoprolol succinate XL (TOPROL XL) 25 mg 24 hr tablet Active oxyCODONE-acetamin ophen (PERCOCET) 10-325 mg per tablet 1 tablet. 10/28/19 24 Active promethazine (PHENERGAN) 25 mg suppository EVERY 4-6 HOURS 10/28/19 24 Active thiamine HCl (VITAMIN B-1) 100 mg tablet take 1 tablet by mouth once daily Active vitamin A 56102 units capsule take 1 capsule by mouth once daily 12/17/19 24 Active traZODone (DESYREL) 100 mg tablet 200 mg at bedtime 01/25/20 24 Active clobetasoL (TEMOVATE) 0.05 % creamIndications:V ulvar itching Apply 1 Application topically in the morning and 1 Application before bedtime. 30 g 11/22/20 24 Active flibanserin 100 mg tabletIndications: Low libido Take 100 mg by mouth in the morning. 30 tablet 2 08/17/20 24 Active estradioL (ESTRACE) 0.5 mg tabletIndications: Vasomotor symptoms due to menopause Take 1 tablet (0.5 mg total) by mouth in the morning. 30 tablet 2 08/17/20 24 Active Active Problems Problem Noted Date Diagnosed Date GI bleed 12/25/2023 Encounter for cosmetic surgery 12/03/2023 Acute upper GI bleed 11/12/2023 Gastroparesis 10/27/2023 Complications of gastric bypass surgery 10/27/19 Hypokalemia 10/27/2023 Hypomagnesemia 10/27/2023 Pyloric stenosis 10/27/2023 FTT (failure to thrive) in adult 08/16/2023 Intestinal malabsorption 08/16/2023 Adjustment disorder with mixed anxiety and depre ssed mood 02/16/2023 Chronic migraine without aur a with status migrainosus, not intractable 02/16/2023 C. 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 022 Overview (12/03/2023): Last Assessment & Plan: Assessment: Labs stable Hemoglobin 11.7 - 15.5 g/dL 11.6 Low Hematocrit 35 - 47 % 34.1 Low Last Assessment & Plan: Assessment: Labs stable Hemoglobin 11.7 - 15.5 g/dL 11.6 Low Hematocrit 35 - 47 % 34.1 Low Vitamin D deficiency 06/17/2022 Acquired hypothyroidism 06/16/2022 Overview (11/18/2023): Last Assessment & Plan: Assessment: On Levothyroxine Diarrhea due to malabsorption 06/16/2022 Baldness 05/13/2022 Partial gastric outlet obstruction 04/11/2022 Intractable abdominal pain 04/08/2022 Attention deficit hyperactiv ity disorder (ADHD), predominantly hyperactive type 04/08/2022 History of Gelacio-en-Y gastric bypass 04/08/2022 Acute gastric erosion 05/17/2021 Gastroesophageal reflux dise ase with esophagitis without hemorrhage 05/17/2021 Nausea and vomiting in adult 05/16/2021 Anxiety 02/14/2020 Pain in joint, pelvic region and thigh 7 Hypertrophic and atrophic condition of skin 04/14 Ectopic thyroid tissue 08/10/2012 Resolved Problems Problem Noted Date Diagnosed Date Resolved Date Malnutrition of moderate degree 08/07/2023 12/03/2023 Blepharitis 02/16/2023 12/03/2023 Marginal ulcer 07/29/2022 12/03/2023 Neck mass 07/09/2012 12/03/2023 Breast mass 11/04/2007 12/03/2023 Overview (12/03/2023): Right, biopsy Family History Medical History Relation Name Comments Heart attack Father Stroke Father Heart attack Maternal Grandfather Stroke Maternal Grandfather Heart attack Maternal Grandmother Stroke Maternal Grandmother Heart attack Mother Stroke Mother Heart attack Paternal Grandfather Stroke Paternal Grandfather Heart attack Paternal Grandmother Stroke Paternal Grandmother Anesthesia problems Neg Hx Relation Name Status Comments Father Maternal Grandfather Maternal Grandmother Mother Paternal Grandfather Paternal Grandmother Social History Tobacco Use Types Packs/Day Years [...] week 05/08/2022 How often do you attend [facility] or christian services? Patient declined 05/08/2022 Do you belong to any clubs o r organizations such as holiness groups, unions, fraternal or athletic groups, or [...] 12/04/2023 PHQ-2 Answer Date Recorded Total Score 15 08/17/2024 [facility] Occupat ional [...] Recorded Do you need help finding a [facility] career center and/or a training program? No 05/08/2022 Hunger Screening Answer Date Recorded Within the past 12 months we worried whether our food would run out before we got money to buy more. Never True 09/21/2024 Within the past 12 months th e food we bought just didn't last and we didn't have money to get more. Never True 09/21/2024 Purpose - Life Answer Date Recorded I [...] PM EDT Sexual Orientation Not on file Last Filed Vital Signs Vital Sign Reading Time Taken Comments Blood Pressure 118/82 09/21/2024 9:35 AM EST Pulse 88 02/10/2024 11:56 AM EDT Temperature 36.8 C (98.2 F) 02/10/2024 11:56 AM EDT Respiratory Rate 18 02/10/2024 11:56 AM EDT Oxygen Saturation 97% 02/10/2024 11:56 AM EDT Inhaled Oxygen Concentration - - Weight 90.7 kg (200 lb) 09/21/2024 9:35 AM EST Height 170.2 cm (5' 7 ) 09/21/2024 9:35 AM EST Body Mass Index 31.32 09/21/2024 9:35 AM EST Plan of Treatment Health Maintenance Due Date Last Done Comments DTaP,Tdap and Td Vaccines (2 - Td or Tdap) 04/20/2016 04/20/2006 COVID-19 Vaccine (2023-2 5 season) 2024 01/09/2021, 12/19/2020 Mammogram 06/03/2024 06/03/2023, 03/0 04/2023, 12/09/2017, Additional history exists Influenza Vaccine 05/15/2025 05/27/2024, , 06/16/2022, Additional history exists Adult BMI Follow Up Plan 08/17/2025 08/17/2024 Depression Screening 08/17/2025 08/17/2024 Adult BMI Screening 09/21/2025 09/21/2024 Tobacco Screening 09/21/2025 09/21/2024 Goals Goal Patient Goal Type Associated Problems Recent Progress Patient-Stated? Author safe discharge to home General Yes Soledad Oliva, RN Note: Evaluation of progress towards goal: safe transition from hospital to home with family support. Medical Devices Not on file Insurance ANTHEM Member Subscriber Plan / Payer (Ef fective 2020-Present) Name:Melina Taveras Member ID:[id number] Relation to Subscriber:Spouse Name:Taveras Miah Rogel Subscriber ID:[id number] Date of :1976 (Work) Address: [address] [place] [address] Payer ID:[id number] (NAIC) Type:Not on file Address: [facility] [id number] [place] [phone] Advance Directives * Full Code (Latest Code Status on File) Date Activated Date Inactivated Comments 04/08/2022 10:48 AM 04/11/2022 6:46 PM * Full Code Date Activated Date Inactivated Comments 05/16/2021 11:18 AM 05/17/2021 7:26 PM Care Teams Sunglass Clip Attacher Relationship Specialty Start Date End Date Skylar Echavarria, CART DRIVER-BACKPACKERS MANAGER [address] [place] [address] PCP - General Internal Medicine 11/18/23
--- OUTSIDE RECORDS SUMMARY | 2025-03-28 09:19 | XMS_ITS | Encounter Summary ---
Author Organization [facility] Address [address] [place] [address] Care Team Providers Care Sex Offender Treatment Professional Name Role Phone Shlomo Hu MD Primary Care Provider [phone] Jess Marsh LPN Unavailable Esthela Tesfaye CRM SYSTEM ADMINISTRATOR Unavailable [phone] Encounter Details Date Type Department Care Team (Late st Contact Info) Description 03/15/2025 Orders Only [facility] [address] [place] [address] Melba Gerardo Preop examination Social History Tobacco Use Types Packs/Day Years [...] Recorded Patient Health Questionnaire-2 Score 2 03/16/2025 [facility] Answer Date Recorded [...] 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 Not 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 Not on file Not on file documented as of this encounter Plan of Treatment Upcoming Encounters Date Type Department Care Team (Late st Contact Info) Description 04/12/2025 9:50 AM EDT Office Visit [facility] [address] [place] [address] Tanya Lozano MD [address] [place] [address] 04/20/2025 3:00 PM EDT Office Visit [facility] [address] [facility] [address] [place] [phone] Sonny Rodriguez, DPM [address] [facility] [address] [place] [address] 05/04/2025 2:50 PM EDT Office Visit [facility] [address] [facility] [address] [place] [phone] Sonny Rodriguez, DPM [address] [facility] [address] [place] [address] Scheduled Orders Name Type Priority Associated Diagnoses Orde r Schedule Basic metabolic panel Lab Routine Preop examination Expected: 03/15/2025 (Approximate), Expires: 05/16/2025 CBC and differential Lab Routine Preop examination Expected: 03/15/2025 (Approximate), Expires: 05/16/2025 documented as of this encounter Visit Diagnoses Diagnosis Preop examination Unspecified pre-operative examination documented in this encounter Additional Health Concerns Assessment Noted Time PHQ-9 Depression Total Score: 18 024 9:42 AM EDT documented as of this encounter Care Teams Sex Offender Treatment Professional Relationship Specialty Start Date End Date Shlomo Hu MD [address] [facility] [address] [place] [address] PCP - General Internal Medicine 02/15/23 Jess Marsh LPN [address] [facility] [address] [place] [address] 12/06/24 Esthela Tesfaye, CRM SYSTEM ADMINISTRATOR [address] [place] [address] Medical Psychotherapist Family Medicine 02/03/25 documented as of this encounter
--- OUTSIDE RECORDS SUMMARY | 2025-03-28 09:19 | XMS_ITS | Encounter Summary ---
Author Organization [facility] Address [address] [place] [address] Care Team Providers Care Assembly Supervisor Name Role Phone Jacob Sharp Unavailable Rasheeda Newton RD Unavailable [phone] Unavailable [phone] Fritz HENDERSON MD, Shlomo Momin Primary Care Provider [phone] Yuan Miller MD, PhD Unavailable [phone] Source Comments In the event this information is protected by the Federal Confidentiality of Alcohol and Drug AbusePatient Records regulations: The Federal rules restrict any use of the information to criminally investigate or prosecute any alcohol or drug abuse patient.[facility] Reason for Visit * Reason Comments tube supplies Encounter Details Date Type Department Care Team (Late st Contact Info) Description 03/16/2025 Telephone Gastroenterology [address] [id number] Johanna Martinez MD [facility] [address] [address] tube supplies Social History Tobacco Use Types Packs/Day Years Used Date Smoking Tobacco: Never Smokeless Tobacco: Never Alcohol Use Standard Drinks/Week Comments Not Currently 0 (1 standard drink = 0.6 oz pur e alcohol) [facility] Utilities Answer Date Recorded In [...] time in the past 12 m [facility], were you homeless or living in a half-way (including now)? No 10/18/2024 Area Deprivation Index Answer Date Reagan rded National Score (1-100), lower number is lower ri sk 63 03/05/2023 State Score (1-10), lower number is lower risk 4 03/05/2023 Data from: https://www.neighborhoodatlas.medicine.[facility]/. Last address used for calculation [address] 03/05/2023 Comments No Sex [...] encounter Miscellaneous Notes * Telephone Encounter - Ninoska Aguilar RN - 03/21/2025 3:24 PM EDT Called [facility], spoke to rep, they have tube order, have not sent, asked if they could send and then asked about gauze, they said pt sent shipment on 03/16 with gauze in it,asked if they could follow up with pt on this. Called pt and provided update, pt said got shipment with no gauze, [facility]. Ninoska Aguilar, PIETRO * Telephone Encounter - Ninoska Aguilar RN - 03/16/2025 3:05 PM EDT Pt left VM, has still not received new tube and no guaze with last shippment. Tube order has been faxed at least twice to [facility] and no call from them not able to supply. Faxed order again and also asking for them to send pt gauze and to call if cannot help with either ofthese things. Ninoska Aguilar, RN documented in this encounter Plan of Treatment Upcoming Encounters Date Type Department Care Team (Latest Contact Info) Description 03/31/2025 11:00 AM EDT Office Visit General Surgery [address] [phone] Michael Mora PA-C [address] [place] [address] follow up- add on ok'd by Michael 04/07/2025 1:00 PM EDT [facility] Neurological Gnosticist [address] [place] [address] Agatha Kim PSYD [address] [place], [place] [id number] 04/19/2025 11:00 AM EDT [facility]rological Gnosticist [address] [place] [address] Joann Loera APRN.FOOD SALES CLERK [address] [place] [address] Cognitive movement issues 04/21/2025 8:30 AM EDT [facility] Nutrition Therapy [address] [place] [address] f/u TF forula tolerance and hydration 05/29/2025 9:00 AM EDT [facility] Gastroenterology [address] [address] Johanna Martinez MD [facility] [address] [address] 3 month follow up 06/28/2025 10:00 AM T [facility] Neurology Pain [address] [place] [address] [place] [address] [place] [address] Follow up for pain documented as of this encounter Visit Diagnoses Not on filedocumented in this encounter Care Teams Assembly Supervisor Relationship Specialty Start Date End Date Shlomo Hu II, MD [address] [facility] [address] [place] [address] PCP - General Internal Medicine 10/06/23 Jacob Sharp [address] [place] [address] Referring 04/30/[address] [address] Registered Dietitian Nutrition 06/24/[address] [place] [address] Registered Dietitian Nutrition 08/27/23 Yuan Miller MD, PhD [address] [place] [address] Surgeon General Surgery 02/03/24 documented as of this encounter
--- OUTSIDE RECORDS SUMMARY | 2025-03-28 09:19 | XMS_ITS | Encounter Summary ---
Author Organization [facility] Address [id number] [address] [place] [address] Care Team Providers Care Change Release Manager Name Role Phone Skylar Echavarria Julia GARCIA-DESK PENS ASSEMBLER Primary Care Provider + Encounter Details Date Type Department Care Team (Late st Contact Info) Description 04/11/2022 Documentation [facility] Soft Sugar Cutter Sign In [address] [place] [phone] Yg Benítez, DO [address] [place] [address] Social History Tobacco Use Types Packs/Day Years Used Date Smoking Tobacco: Never Smokeless Tobacco: Never Alcohol Use Standard Drinks/Week Comments Not Currently 0 (1 standard drink = 0.6 oz pur e alcohol) Childcare Answer Date Recorded Childcare Unknown 02/22/2019 [...] have Coronavirus / COVID-19? No / Unsure 04/08/2022 6:40 AM EDT documented as of this encounter [...] on filedocumented in this encounter Care Teams Change Release Manager Relationship Specialty Start Date End Date Skylar Echavarria APRN-DESK PENS ASSEMBLER [address] [place] [address] PCP - General Internal Medicine 11/18/23 documented as of this encounter
--- OUTSIDE RECORDS SUMMARY | 2025-03-28 09:19 | XMS_ITS | Encounter Summary ---
Author Organization [facility] Address [address] [place] [address] Care Team Providers Care Admin Secretary Name Role Phone Jacob Sharp Unavailable Rasheeda Newton RD Unavailable [phone] Unavailable [phone] Fritz HENDERSON MD, Shlomo Momin Primary Care Provider [phone] Yuan Miller MD, PhD Unavailable [phone] Source Comments In the event this information is protected by the Federal Confidentiality of Alcohol and Drug AbusePatient Records regulations: The Federal rules restrict any use of the information to criminally investigate or prosecute any alcohol or drug abuse patient.[facility] Reason for Visit * Reason Comments letter of medical necessity for EN Encounter Details Date Type Department Care Team (Late st Contact Info) Description 03/27/2025 Telephone Gastroenterology [address] [address] Johanna Martinez MD [facility] [address] [address] letter of medical necessity for EN Social History Tobacco Use Types Packs/Day Years Used Date Smoking Tobacco: Never Smokeless Tobacco: Never Alcohol Use Standard Drinks/Week Comments Not Currently 0 (1 standard drink = 0.6 oz pur e alcohol) [facility] Utilities Answer Date Recorded In [...] any time in the past 12 m [facility], were you homeless or living in a long-term (including now)? No 10/18/2024 Area Deprivation Index Answer Date Reagan rded National Score (1-100), lower number is lower ri sk 63 03/05/2023 State Score (1-10), lower number is lower risk 4 03/05/2023 Data from: https://www.neighborhoodatlas.[facility]/. Last address used for calculation [address] [...] Date Author No 08/02/2024 3:06 PM Donna Olea, PIETRO documented in this encounter Miscellaneous Notes * Telephone Encounter - Ninoska Aguilar, PIETRO - 03/27/2025 2:41 PM EDT Form faxed from [facility], for pt for medical necessity for EN and all supplies, form completed and signed by Dr. Martinez and faxed back to [facility] with last clinical notes to [phone]. Ninoska Aguilar, PIETRO documented in this encounter Plan of Treatment Upcoming Encounters Date Type Department Care Team (Latest Contact Info) Description 03/31/2025 11:00 AM EDT Office Visit General Surgery [address] [place] [address] Michael Mora PA-C [address] [place] [address] follow up- add on ok'd by Michael 04/07/2025 1:[address] [facility] Neurological Scientologist [address] [place] [address] Agatha Kim PSYD [address] [place] [address] 04/19/2025 11:[address] [facility] Neurological Scientologist [address] [place] [address] Joann Loera APRN.PHOTOCOPYING EQUIPMENT MECHANIC [address] [place] [address] Cognitive movement issues 04/21/2025 8:[address] [facility] Nutrition Therapy [address] [address] Tiffany Banks, RD [address] [place] [address] f/u TF forula tolerance and hydration 05/29/2025 9:[address] [facility] Gastroenterology [address] [address] Johanna Martinez MD [facility] [address] [address] 3 month follow up 06/28/2025 10:[address] [facility] Neurology Pain [address] [place] [address] [place] [address] [place] [address] Follow up for pain documented as of this encounter Visit Diagnoses Not on filedocumented in this encounter Care Teams Admin Secretary Relationship Specialty Start Date End Date Shlomo Hu II, MD 112 [facility] 110 [place] [address] PCP - General Internal Medicine 10/06/23 Jacob Sharp [address] [id number] Referring 04/30/[address] [id number] Registered Dietitian Nutrition 06/24/[address] [phone] Registered Dietitian Nutrition 08/27/23 Yuan Miller MD, PhD [address] [place] [address] Surgeon General Surgery 02/03/24 documented as of this encounter
--- OUTSIDE RECORDS SUMMARY | 2025-03-28 09:19 | XMS_ITS | Encounter Summary ---
Author Organization [facility] Address [address] [place] [address] Care Team Providers Care Manager Telemarketing Name Role Phone Jacob Sharp Unavailable Rasheeda Newton RD Unavailable [phone] Unavailable Fritz HENDERSON MD, Shlomo Momin Primary Care Provider [phone] Yuan Miller MD, PhD Unavailable [phone] Source Comments In the event this information is protected by the Federal Confidentiality of Alcohol and Drug AbusePatient Records regulations: The Federal rules restrict any use of the information to criminally investigate or prosecute any alcohol or drug abuse patient.[facility] Encounter Details Date Type Department Care Team (Late st Contact Info) Description 03/21/2025 Patient Msg Gastroenterology [address] [id number] Provider, [facility] prescription services for Creon Social History Tobacco Use Types Packs/Day Years Used Date Smoking Tobacco: Never Smokeless Tobacco: Never Alcohol Use Standard Drinks/Week Comments Not Currently 0 (1 standard drink = 0.6 oz pur e alcohol) [facility] Utilities Answer Date Recorded In the [...] lower risk 4 03/05/2023 Data from: https://www.neighborhoodatlas.medicine.[facility]/. Last address used for calculation [address] 270 03/05/2023 Comments No Sex [...] AM EDT Office Visit General Surgery [address] [id number] Michael Mora PA-C [address] [id number] follow up- add on ok'd by Michael 04/07/2025 1:00 PM EDT [facility] Neurological Buddhism [address] [id number] Agatha Kim PSYD [address] [phone] 04/19/2025 11:00 AM EDT [facility] Buddhism [address] [phone] Joann Loera APRN.TALENT ACQUISITION RELATIONSHIP MANAGER 9500 [place] [address] Cognitive movement issues 04/21/2025 8:30 AM EDT [facility] Nutrition Therapy 2048 [place] [address] Tiffany Banks, RD [address] [id number] f/u TF forula tolerance and hydration 05/29/2025 9:00 AM T [facility] Gastroenterology 2048 [place] [address] [facility] [address] [place], [place] [id number] 3 month follow up 06/28/2025 10:00 AM T [facility] Neurology Pain [address] [phone] [place] [address] [place] [address] Follow up for pain documented as of this encounter Visit Diagnoses Not on filedocumented in this encounter Care Teams Manager Telemarketing Relationship Specialty Start Date End Date Shlomo Hu II, MD [address] [place] [address] PCP - General Internal Medicine 10/06/23 Jacob Sharp [address] [place] [address] Referring 04/30/[address] [place] [id number] Registered Dietitian Nutrition 06/24/[address] [phone] Registered Dietitian Nutrition 08/27/23 Yuan Miller MD, PhD [address] [place] [address] Surgeon General Surgery 02/03/24 documented as of this encounter
--- OUTSIDE RECORDS SUMMARY | 2025-03-28 09:19 | XMS_ITS | Encounter Summary ---
Author Organization [employer] [facility] tem Address [facility]-[id number] [address] [place] [address] Care Team Providers Care Marketing Copywriter Name Role Phone Skylar Echavarria APRN-USED CAR LOT ATTENDANT Primary Care Provider + Encounter Details Date Type Department Care Team (Late st Contact Info) Description 05/26/2022 Abstract Sharron Wei [facility] Center - Medical Oncology [address] [place] [id number] Estelita Trammell Social History Tobacco Use Types Packs/Day Years [...] How often do you attend chur or zoroastrian services? Patient declined 05/08/2022 Do you belong [...] Answer Date Recorded Total Score 0 05/08/2022 [facility] - [...] Recorded Do you need help finding a [facility] career center and/or a training program? [...] have Coronavirus / COVID-19? No / Unsure 05/29/2022 10:37 AM EDT documented as of this encounter [...] documented as of this encounter Care Teams Marketing Copywriter Relationship Specialty Start Date End Date Skylar Echavarria APRN-USED CAR LOT ATTENDANT [address] [place] [address] PCP - General Internal Medicine 11/18/23 documented as of this encounter
--- OUTSIDE RECORDS SUMMARY | 2025-03-28 09:19 | XMS_ITS | Encounter Summary ---
Author Organization [facility] Address [address] [place] [address] Care Team Providers Care Department Chair Name Role Phone Jacob Sharp Unavailable Rasheeda Newton RD Unavailable [phone] Unavailable [phone] Fritz HENDERSON MD, Shlomo Momin Primary Care Provider [phone] Yuan Miller MD, PhD Unavailable [phone] Source Comments In the event this information is protected by the Federal Confidentiality of Alcohol and Drug AbusePatient Records regulations: The Federal rules restrict any use of the information to criminally investigate or prosecute any alcohol or drug abuse patient.[facility] Encounter Details Date Type Department Care Team (Late st Contact Info) Description 03/09/2025 Patient Msg Gastroenterology [address] [phone] Provider, [facility] follow up on supplies Social History Tobacco Use Types Packs/Day Years Used Date Smoking Tobacco: Never Smokeless Tobacco: Never Alcohol Use Standard Drinks/Week Comments Not Currently 0 (1 standard drink = 0.6 oz pur e alcohol) [facility] Utilities Answer Date Recorded In [...] any time in the past 12 m [facility], were you homeless or living in a usp (including now)? No 10/18/2024 Area Deprivation Index Answer Date Reagan rded National Score (1-100), lower number is lower ri sk 63 03/05/2023 State Score (1-10), lower number is lower risk 4 03/05/2023 Data from: https://www.neighborhoodatlas.medicine.[facility]/. Last address used for calculation [address] 270 03/05/2023 Comments No [...] AM EDT Office Visit General Surgery [address] [place] [address] Michael Mora PA-C [address]00 [place] [address] follow up- add on ok'd by Michael 04/07/2025 1:00 PM EDT [facility] Neurological [place]ondoism [address] [place] [address] Agatha Kim PSYD [address] [phone] 04/19/2025 11:00 AM EDT [facility] Neurological [place] [address] [phone] Joann Loera APRN.ON AWAKE COUNSELOR [address] [phone] Cognitive movement issues 04/21/2025 8:30 AM T [facility] Nutrition Therapy 20[address] [place] [address] 9500 [place] [address] f/u TF forula tolerance and hydration 05/29/2025 9:00 AM T [facility] Gastroenterology [address] [place] [address] Johanna Martinez MD [facility] [address] [place] [address] 3 month follow up 06/28/2025 10:00 AM T [facility] Neurology Pain [address] [phone] [place] [address] [address] [id number] Follow up for pain documented as of this encounter Visit Diagnoses Not on filedocumented in this encounter Care Teams Department Chair Relationship Specialty Start Date End Date Shlomo Hu II, MD [address] [place] [address] PCP - General Internal Medicine 10/06/23 Jacob Sharp [address] [place] [address] Referring 04/30/[address] [place] [phone] Registered Dietitian Nutrition 06/24/[address] [phone] Registered Dietitian Nutrition 08/27/23 Yuan Miller MD, PhD [address] [place] [address] Surgeon General Surgery 02/03/24 documented as of this encounter
--- OUTSIDE RECORDS SUMMARY | 2025-03-28 09:19 | XMS_ITS | Encounter Summary ---
Author Organization [facility] Address [address] [place] [address] Care Team Providers Care Senior Software Development Manager Name Role Phone Sean Ruiz DO Primary Care Provider [phone] Jacob Sharp Unavailable Rasheeda Newton RD Unavailable [phone] Unavailable [phone] Fritz HENDERSON MD, Shlomo Momin Primary Care Provider [phone] Yuan Miller MD, PhD Unavailable [phone] Source Comments In the event this information is protected by the Federal Confidentiality of Alcohol and Drug AbusePatient Records regulations: The Federal rules restrict any use of the information to criminally investigate or prosecute any alcohol or drug abuse patient.[facility] Encounter Details Date Type Department Care Team (Late st Contact Info) Description 08/12/2022 Patient Msg Hematology/Oncology [address] [place], [place] [phone] Provider, [facility] TREATMENT APPOINTMENT Social History Tobacco Use Types Packs/Day Years [...] N ot on file 08/20/2020 Data from: https://www.neighborhoodatlas.medicine.[facility].edu/. Last address used for calculation Not [...] hearing? Answer Date of Assessment Author No 08/04/2022 6:22 PM Lorenza Onofre RN * Are you blind or do you have serious difficulty seeing, even when wearing glasses? Answer Date of Assessment Author No 08/04/2022 6:22 PM Lorenza Onofre RN * Do you have serious difficulty walking or climbing stairs? Answer Date of Assessment Author No 08/04/2022 6:22 PM Lorenza Onofre RN * Do you have difficulty dressing or bathing? Answer Date of Assessment Author No 08/04/2022 6:22 PM Lorenza Onofre RN * Because of a physical, mental, or emotional condition, do you have difficulty doing errands alone such as visiting a doctor's office or shopping? Answer Date of Assessment Author No 08/04/2022 6:22 PM Lorenza Onofre RN documented as of this encounter Mental Status * Because of a physical, mental, or emotional condition, do you have serious difficulty concentrating, remembering, or making decisions? Answer Entry Date Author No 08/04/2022 6:22 PM Lorenza Onofre RN documented in this encounter Plan of Treatment Upcoming Encounters Date Type Department Care Team (Latest Contact Info) Description 03/31/2025 11:00 AM EDT Office Visit General Surgery 9[address] [place] [address] Michael Mora PA-C [address] [phone] follow up- add on ok'd by Michael 04/07/2025 1:00 PM EDT [facility] Neurological Ho[place]ism [address] [phone] Agatha Kim PSYD [address] [phone] 04/19/2025 11:00 AM EDT [facility] Neurological Ho[place]aoism [address] [phone] Joann Loera APRN.HEALTH CARE FACILITIES INSPECTOR 9500 [place] [address] Cognitive movement issues 04/21/2025 8:30 AM T [facility] Nutrition Therapy [address] [phone] Tiffany Banks, RD 9500 [place] [address] f/u TF forula tolerance and hydration 05/29/2025 9:00 AM EDT [facility] Gastroenterology [address] [phone] Johanna Martinez MD [facility] [address] [place], [place] [address]2406 3 month follow up 06/28/2025 10:00 AM EDT [facility] Neurology Pain [address] [place] [address] [place] [address] [place] [address] Follow up for pain documented [...] as of this encounter Care Teams Senior Software Development Manager Relationship Specialty [place] [address] [place] [address] PCP - General Family Medicine 10/26/12 1/22/24 Shlomo Hu II, MD [address] [facility] 110 [place] [address] PCP - General Internal Medicine 10/06/23 Jacob Sharp [address] [phone] Referring 04/30/[address], [place] [address] Registered Dietitian Nutrition 06/24/[address] [place] [address] Registered Dietitian Nutrition 08/27/23 Yuan Miller MD, PhD [address] [place] [address] Surgeon General Surgery 02/03/24 documented as of this encounter
--- OUTSIDE RECORDS SUMMARY | 2025-03-28 09:19 | XMS_ITS | Encounter Summary ---
Author Organization [facility] Address [address] [place] [address] Care Team Providers Care Integration Consultant Name Role Phone Jacob Sharp Unavailable Rasheeda Newton RD Unavailable [phone] Unavailable [phone] Fritz HENDERSON MD, Shlomo Momin Primary Care Provider [phone] Yuan Miller MD, PhD Unavailable [phone] Source Comments In the event this information is protected by the Federal Confidentiality of Alcohol and Drug AbusePatient Records regulations: The Federal rules restrict any use of the information to criminally investigate or prosecute any alcohol or drug abuse patient.[facility] Reason for Visit * Reason Comments Insurance Authorization for creon Encounter Details Date Type Department Care Team (Late st Contact Info) Description 03/03/2025 Telephone Gastroenterology [address] [address] oJhanna Martinez MD [facility] [address] [address] Insurance Authorization (for creon) Social History Tobacco Use Types Packs/Day Years Used Date Smoking Tobacco: Never Smokeless Tobacco: Never Alcohol Use Standard Drinks/Week Comments Not Currently 0 (1 standard drink = 0.6 oz pur e alcohol) [facility] Utilities Answer Date Recorded In the [...] slept in a jail (including now)? No 02/16/2024 Housing Stability Vital [...] any time in the past 12 m [facility], were you homeless or living in a jail (including now)? No 10/18/2024 Area Deprivation Index Answer Date Reagan rded National Score (1-100), lower number is lower ri sk 63 03/05/2023 State Score (1-10), lower number is lower risk 4 03/05/2023 Data from: https://www.neighborhoodatlas.[facility]/. Last address used for calculation [address] 270 03/05/2023 Comments No [...] documented in this encounter Miscellaneous Notes * Addendum Note - Maximus Rosas MD - 03/21/2025 4:09 PM EDTAddended by: MAXIMUS ROSAS on: 03/21/2025 04:09 PM Modules accepted: Orders * Addendum Note - Christiane Hurd RN - 03/21/2025 3:23 PM EDTAddended by: CHRISTIANE HURD on: 03/21/2025 03:23 PM Modules accepted: Orders * Telephone Encounter - Christiane Hurd RN - 03/21/2025 3:21 PM EDT Talked to pt and she is ok with having script sent to [facility], had reached out to them and has not heard back. Discussed that maybe waiting for script. * Telephone Encounter - Christiane Hurd RN - 03/09/2025 2:42 PM EDT Fax received from [facility] Prescription services that Creon all strenghts, max 30 day fill at a time is approved ongoing for pt under their prescription benefit but that preferred pharmacy to fill is [facility] and also pt must sign up for kiln stacker co-pay card. Callled pt and reviewed above, she was not aware of any of this and will check with insurance first. Christiane Hurd RN * Telephone Encounter - Christiane Hurd RN - 03/08/2025 10:20 AM EDT Called [employer], a pharmacy benefit company, they will fax a form to be completed to return for PA determination for med. Christiane Hurd RN * Telephone Encounter - Christiane Hurd, RN - 03/03/2025 11:57 AM EDT Fax from [facility] that [place] needed for Creon, frost code in covermymeds [id number], but not able to send to plan, message to call [facility] at [phone]. Christiane Hurd, RN documented in this encounter Plan of Treatment Upcoming Encounters Date Type Department Care Team (Latest Contact Info) Description 03/31/2025 11:00 AM EDT Office Visit General Surgery [address] [phone] Michael Mora PA-C [address] [phone] follow up- add on ok'd by Michael 04/07/2025 1:00 PM EDT [facility]rological [place] [address] [place] [address] Agatha Kim PSYD [address]00 [place] [address] 04/19/2025 11:00 AM EDT [facility]rological [place] [address] [place] [address] Joann Loera APRN.QUALITY CONTROL COORDINATOR 9500 [place] [address] Cognitive movement issues 04/21/2025 8:30 AM EDT [facility] Nutrition Therapy [address] [phone] Tiffany Banks [address] [place] [address] f/u TF forula tolerance and hydration 05/29/2025 9:00 AM EDT [facility] Gastroenterology [address] [phone] Johanna Martinez MD [facility] [address] [place], [place] [address] 3 month follow up 06/28/2025 10:00 AM EDT [facility] Neurology Pain [address] [phone] [place] [address] [place], [place] [phone] Follow up for pain documented as of this encounter Visit Diagnoses Not on filedocumented in this encounter Care Teams Integration Consultant Relationship Specialty Start Date End Date Shlomo Hu II, MD [address] [facility] 110 [place] [address] PCP - General Internal Medicine 10/06/23 Jacob Sharp [address] [address] [phone] Referring 04/30/[address] [place], [place] [address] Registered Dietitian Nutrition 06/24/[address] [facility] [place] [phone] Registered Dietitian Nutrition 08/27/23 Yuan Miller MD, PhD 9500 [place] [address] Surgeon General Surgery 02/03/24 documented as of this encounter
--- OUTSIDE RECORDS SUMMARY | 2025-03-28 09:19 | XMS_ITS | Encounter Summary ---
Author Organization [facility] Address [address] [place] [address] Care Team Providers Care Electrical Assembly Technician Name Role Phone Jacob Sharp Unavailable Rasheeda Newton RD Unavailable [phone] Unavailable [phone] Fritz HENDERSON MD, Shlomo Momin Primary Care Provider [phone] Yuan Miller MD, PhD Unavailable [phone] Source Comments In the event this information is protected by the Federal Confidentiality of Alcohol and Drug AbusePatient Records regulations: The Federal rules restrict any use of the information to criminally investigate or prosecute any alcohol or drug abuse patient.[facility] Encounter Details Date Type Department Care Team (Late st Contact Info) Description 03/22/2025 [place] [address] Provider, [facility] Sign up to manage your digestive symptoms in between visits, covered by insurance Social History Tobacco Use Types Packs/Day Years Used Date Smoking Tobacco: Never Smokeless Tobacco: Never Alcohol Use Standard Drinks/Week Comments Not Currently 0 (1 standard drink = 0.6 oz pur e alcohol) [facility] Utilities Answer Date Recorded In the past 12 months has e [employer], [employer], oil, or water company threatened to shut [...] Entry Date Author No 08/02/2024 3:06 PM oDnna Olea RN documented in this encounter Plan of Treatment Upcoming Encounters Date Type Department Care Team (Latest Contact Info) Description 03/31/2025 11:00 AM EDT Office Visit General Surgery 9300 [place] [address] Michael Mora PA-C 9500 [place] [address] follow up- add on ok'd by Michael 04/07/2025 1:00 PM EDT [facility] Neurological Yarsanism [address] [place] [address] Agatha Kim PSYD [address] [place] [phone] 04/19/2025 11:00 AM EDT [facility] Neurological [facility]ars[facility]ism [address] [place] [phone] Joann Loera APRN.ASSOCIATE PROFESSOR OF LAW [address] [place] [phone] Cognitive movement issues 04/21/2025 8:30 AM EDT [facility] Nutrition Therapy 2048 [place] [address] Tiffany Banks, RD 9500 [place] [address] f/u TF forula tolerance and hydration 05/29/2025 9:00 AM EDT [facility] Gastroenterology 2048 [place] [address] Johanna Martinez MD [facility] [address] [place] [address] 3 month follow up 06/28/2025 10:00 AM EDT [facility] Neurology Pain [address] [place] [phone] [place] [address] [place] [phone] Follow up for pain documented as of this encounter Visit Diagnoses Not on filedocumented in this encounter Care Teams Electrical Assembly Technician Relationship Specialty Start Date End Date Shlomo Hu II, MD [address] [facility] 110 [place] [address] PCP - General Internal Medicine 10/06/23 Jacob Sharp [address] [place] [address] Referring 04/30/[address] [phone] Registered Dietitian Nutrition 06/24/[address] [place] [phone] Registered Dietitian Nutrition 08/27/23 Yuan Miller MD, PhD 9502 [place] [address] Surgeon General Surgery 02/03/24 documented as of this encounter
--- OUTSIDE RECORDS SUMMARY | 2025-03-28 09:19 | XMS_ITS | Encounter Summary ---
Author Organization [facility] Address [address] [place] [address] Care Team Providers Care Biodiesel Plant Operations Engineer Name Role Phone Jaocb Sharp Unavailable Rasheeda Newton RD Unavailable [phone] Unavailable [phone] Fritz HENDERSON MD, Shlomo Momin Primary Care Provider [phone] Yuan Miller MD, PhD Unavailable [phone] Source Comments In the event this information is protected by the Federal Confidentiality of Alcohol and Drug AbusePatient Records regulations: The Federal rules restrict any use of the information to criminally investigate or prosecute any alcohol or drug abuse patient.[facility] Reason for Visit * Reason Comments insurane authorization for Relizorb Encounter Details Date Type Department Care Team (Late st Contact Info) Description 03/15/2025 Telephone Gastroenterology [address] [phone] Johanna Martinez MD [facility] [address] [address] insurane authorization for Relizorb Social History Tobacco Use Types Packs/Day Years [...] any time in the past 12 m [facility], were you homeless or living in a longterm (including now)? No 10/18/2024 Area Deprivation Index Answer Date Reagan rded National Score (1-100), lower number is lower ri sk 63 03/05/2023 State Score (1-10), lower number is lower risk 4 03/05/2023 Data from: https://www.neighborhoodatlas.medicine.[facility].edu/. Last address used for calculation [address] 270 03/05/2023 Comments No Sex and [...] Encounter - Ninoska Aguilar RN - 03/16/2025 12:17 PM EDT Faxed last office note from DIONNE and MD to Chito rep Lorenza for needs for insurance. Ninoska Aguilar RN * Telephone Encounter - Ninoska Aguilar RN - 03/15/2025 2:33 PM EDT Received message from Lorenza with myrna Dale's current approval expires with her [facility] insurance end of March, need new clinical notes. Ninoska Aguilar RN documented in this encounter Plan of Treatment Upcoming Encounters Date Type Department Care Team (Latest Contact Info) Description 03/31/2025 11:00 AM EDT Office Visit General Surgery 9300 [place] [address] Michael Mora PA-C [address] [place] [phone] follow up- add on ok'd by Michael 04/07/2025 1:00 PM EDT [facility] 9300 [place] [address] Agatha Kim PSYD 9500 [place] [address] 04/19/2025 11:00 AM EDT [facility] [address] [place] [address] Joann Loera APRN.FIELD SUPPORT TECHNICIAN 9500 [place] [address] Cognitive movement issues 04/21/2025 8:30 AM EDT [facility] [address] 9499 [place] [address] f/u TF forula tolerance and hydration 05/29/2025 9:00 AM EDT [facility] Gastroenterology [address] [facility] [address] [address] 3 month follow up 06/28/2025 10:00 AM EDT [facility] Neurology Pain [address] [place] [phone] [place] [address] [place] [address] Follow up for pain documented as of this encounter Visit Diagnoses Not on filedocumented in this encounter Care Teams Biodiesel Plant Operations Engineer Relationship Specialty Start Date End Date Shlomo Hu II, MD 112 [facility] 110 [place] [address] PCP - General Internal Medicine 10/06/23 Jacob Sharp [address] [phone] Referring 04/30/[address] [place], [place] [phone] Registered Dietitian Nutrition 06/24/[address] 9500 [place] [address] Registered Dietitian Nutrition 08/27/23 Yuan Miller MD, PhD 95[address] [place], [place] [phone] Surgeon General Surgery 02/03/24 documented as of this encounter
--- OUTSIDE RECORDS SUMMARY | 2025-03-28 09:19 | XMS_ITS | Encounter Summary ---
Author Organization [facility] Address [address] [place] [address] Care Team Providers Care Trim Operator Name Role Phone Shlomo Hu MD Primary Care Provider [phone] Jess Marsh LPN Unavailable Esthela Tesfaye CELL REPAIRER Unavailable [phone] Encounter Details Date Type Department Care Team (Latest Contact Info) Description 03/16/2025 Travel Social History Tobacco Use Types Packs/Day Years [...] often do you attend chur ch or islam services? 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 Question Answer Date of Assessment Author Little interest or pleasure in doing things Several days 03/16/2025 9:20 AM TRENAT APRTHA WOLFE Feeling down, depressed, or hopeless Several days 11/2024 9:20 AM EDT YANETH, PARTHA Patient Health Questionnaire-2 Score 2 11/2024 9:20 [...] PARTHA WOLFE documented as of this encounter Plan of Treatment Upcoming Encounters Date Type Department Care Team (Late st Contact Info) Description 04/12/2025 9:50 AM EDT Office Visit [facility] [address] [place] [address] Tanya Lozano MD [address] [place] [address] 04/20/2025 3:00 PM EDT Office Visit [facility] [address] [place] [address] Sonny Rodriguez DPM 3006 [facility] 5 [place] [address] 05/04/2025 2:50 PM EDT Office Visit [facility] [address] [place] [address] Sonny Rodriguez DPM 3006 [facility] 5 [place] [address] documented as of this encounter Visit Diagnoses Not on filedocumented in this encounter Additional Health Concerns Assessment Noted Time PHQ-9 Depression Total Score: 18 024 9:42 AM EDT documented as of this encounter Care Teams Trim Operator Relationship Specialty Start Date End Date Shlomo Hu MD [address] [place] [address] PCP - General Internal Medicine 02/15/23 Jess Marsh LPN [address] [place] [address] 12/06/24 Esthela Tesfaye, KIRA [address] [facility] [place] [address] Fiber Machine Tender Family Medicine 02/03/25 documented as of this encounter
--- OUTSIDE RECORDS SUMMARY | 2025-03-28 09:19 | XMS_ITS | Encounter Summary ---
Author Organization [facility] Address [address] [place] [address] Care Team Providers Care Mud Analysis Supervisor Name Role Phone Shlomo Hu MD Primary Care Provider [phone] Jess Marsh LPN Unavailable Esthela Tesfaye FORKLIFT MATERIAL HANDLER Unavailable Encounter Details Date Type Department Care Team (Latest Contact Info) Description 03/15/2025 Travel Social History Tobacco Use Types Packs/Day [...] often do you attend chur ch or religion services? 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 Not on file Not on file documented as of this encounter Plan of Treatment Upcoming Encounters Date Type Department Care Team (Late st Contact Info) Description 04/12/2025 9:50 AM EDT Office Visit [facility] [address] [place] [address] Tanya Lozano MD [address] [place] [address] 04/20/2025 3:00 PM EDT Office Visit [facility] [address] [place] [place] [address] Sonny Rodriguez, DPM [address] [address] [place] [address] 05/04/2025 2:50 PM EDT Office Visit [facility] [address] [place] [place] [address] Sonny Rodriguez DPLudmila [address] [address] documented as of this encounter Visit Diagnoses Not on filedocumented in this encounter Additional Health Concerns Assessment Noted Time PHQ-9 Depression Total Score: 18 024 9:42 AM EDT documented as of this encounter Care Teams Mud Analysis Supervisor Relationship Specialty Start Date End Date Shlomo Hu MD [address] [facility] 110 [place] [address] PCP - General Internal Medicine 02/15/23 Jess Marsh LPN [address] [facility] 110 [place] [address] 12/06/24 Esthela Tesfaye, KIRA [address] [place] [address] Financial Service Rep Family Medicine 02/03/25 documented as of this encounter
--- OUTSIDE RECORDS SUMMARY | 2025-03-28 09:19 | XMS_ITS | Encounter Summary ---
Author Organization [facility] Address [address] [place] [address] Care Team Providers Care Tow Feeder Name Role Phone Sean Ruiz DO Primary Care Provider [phone] Jacob Sharp Unavailable Rasheeda Newton RD Unavailable [phone] Unavailable [phone] Fritz HENDERSON MD, Shlomo B Primary Care Provider [phone] Yuan Miller MD, PhD Unavailable [phone] Source Comments In the event this information is protected by the Federal Confidentiality of Alcohol and Drug AbusePatient Records regulations: The Federal rules restrict any use of the information to criminally investigate or prosecute any alcohol or drug abuse patient.[facility] Encounter Details Date Type Department Care Team (Late st Contact Info) Description 08/11/2022 Patient Msg Hematology/Oncology [address] [place] [address] Lacey Youssef, COMBINING MACHINE OPERATOR.FLATBED DRIVER [address] [place] [address] Follow Up Anemia Consult Social History Tobacco Use Types Packs/Day Years [...] N ot on file 08/20/2020 Data from: https://www.neighborhoodatlas.medicine.[facility].edu/. Last address used for calculation Not [...] of Assessment Author No 08/04/2022 6:22 PM EST Lorenza Hair RN * Are you blind or do [...] AM EDT Office Visit General Surgery 9300 [place] [address] Michael Mora PA-C 9500 [place] [address] follow up- add on ok'd by Michael 04/07/2025 1:00 PM EDT [facility] Neurological Lutheran [address] [place] [address] Agatha Kim PSYD [address] [phone] 04/19/2025 11:00 AM EDT [facility] Neurological [facility]an [address] [phone] Joann Loera APRN.FLATBED DRIVER [address] [phone] Cognitive movement issues 04/21/2025 8:30 AM EDT [facility] Nutrition Therapy 2048 [place] [address] Tiffany Banks, RD [address] [address] [phone] f/u TF forula tolerance and hydration 05/29/2025 9:00 AM EDT [facility] Gastroenterology 2048 [place] [address] [facility] [address] [place] [address] 3 month follow up 06/28/2025 10:00 AM EDT [facility] Neurology Pain [address] [place] [address] [place] [address] [place], [place] [phone] Follow up for pain documented as of [...] documented as of this encounter Care Teams Tow Feeder Relationship Specialty [place] [address] [place] [address] PCP - General Family Medicine 07/09/12 10/05/23 Shlomo Hu II, MD 112 [facility] 110 [place] [address] PCP - General Internal Medicine 10/06/23 Jacob Sharp [address] [address] [phone] Referring 04/30/[address] [phone] Registered Dietitian Nutrition 06/24/[address] [place] [address] Registered Dietitian Nutrition 08/27/23 Yuan Miller MD, PhD 9537 [place] [address] Surgeon General Surgery 02/03/24 documented as of this encounter
--- OUTSIDE RECORDS SUMMARY | 2025-03-28 09:19 | XMS_ITS | Encounter Summary ---
Author Organization [facility] Address [address] [place] [address] Care Team Providers Care It Systems Administrator Name Role Phone Jacob Sharp Unavailable Rasheeda Newton RD Unavailable [phone] Unavailable [phone] Fritz HENDERSON MD, Shlomo Momin Primary Care Provider [phone] Yuan Miller MD, PhD Unavailable [phone] Source Comments In the event this information is protected by the Federal Confidentiality of Alcohol and Drug AbusePatient Records regulations: The Federal rules restrict any use of the information to criminally investigate or prosecute any alcohol or drug abuse patient.[facility] Encounter Details Date Type Department Care Team (Late st Contact Info) Description 03/09/2025 Patient Msg Gastroenterology [address] [phone] Provider, Ccf new update on formula Social History Tobacco Use Types Packs/Day Years Used Date Smoking Tobacco: Never Smokeless Tobacco: Never Alcohol Use Standard Drinks/Week Comments Not Currently 0 (1 standard drink = 0.6 oz pur e alcohol) [facility] Utilities Answer Date Recorded In the [...] in a snf (including now)? No 02/16/2024 Housing Stability Vital [...] living in a snf (including now)? No 10/18/2024 Area Deprivation Index Answer Date Reagan rded National Score (1-100), lower number is lower ri sk 63 03/05/2023 State Score (1-10), lower number is lower risk 4 03/05/2023 Data from: https://www.neighborhoodatlas.medicine.[facility]/. Last address used for calculation [address] 270 03/05/2023 Comments No Sex [...] AM EDT Office Visit General Surgery [address] [place] [address] Michael Mora PA-C [address]00 [place] [address] follow up- add on ok'd by Michael 04/07/2025 1:00 PM EDT [facility] Neurological Buddhism [address] [place] [address] Agatha Kim PSYD [address] [place] [address] [phone] 04/19/2025 11:00 AM EDT [facility] Neurological Buddhism [address] [address] [phone] Joann Loera APRN.SPLICER APPRENTICE [address] [place] [address] [phone] Cognitive movement issues 04/21/2025 8:30 AM T [facility] Nutrition Therapy 2048 [place] [address] [place] [address] f/u TF forula tolerance and hydration 05/29/2025 9:00 AM T [facility] Gastroenterology 2048 [place] [address] Johanna Martinez MD [facility] [address] [place] [address] 3 month follow up 06/28/2025 10:00 AM T [facility] Neurology Pain [address] [address] [phone] [place] [address] [place] [address] [phone] Follow up for pain documented as of this encounter Visit Diagnoses Not on filedocumented in this encounter Care Teams It Systems Administrator Relationship Specialty Start Date End Date Shlomo Hu II, MD [address] [place] [place] [address] PCP - General Internal Medicine 10/06/23 Jacob Sharp [address] [place] [address] Referring 04/30/[address] [place] [phone] Registered Dietitian Nutrition 06/24/[address] [place] [address] [phone] Registered Dietitian Nutrition 08/27/23 Yuan Miller MD, PhD 0[address] [place] [address] Surgeon General Surgery 02/03/24 documented as of this encounter
--- OUTSIDE RECORDS SUMMARY | 2025-03-28 09:19 | XMS_ITS | Encounter Summary ---
Author Organization [facility] Address [address] [place] [address] Care Team Providers Care Supply Officer Name Role Phone Jacob Sharp Unavailable Rasheeda Newton RD Unavailable [phone] Unavailable [phone] Fritz HENDERSON MD, Shlomo Momin Primary Care Provider [phone] Yuan Miller MD, PhD Unavailable [phone] Source Comments In the event this information is protected by the Federal Confidentiality of Alcohol and Drug AbusePatient Records regulations: The Federal rules restrict any use of the information to criminally investigate or prosecute any alcohol or drug abuse patient.[facility] Encounter Details Date Type Department Care Team (Late st Contact Info) Description 03/28/2024 Get Medical Advice Rheumatology [address] [phone] [place] [address] [place] [address] Biopsy results Social History Tobacco Use Types Packs/Day Years [...] PHQ-2 Answer Date Recorded PHQ-2 score 6 03/06/2024 Hunger Vital Sign Answer Date Recorded Within [...] lower risk 4 03/05/2023 Data from: https://www.neighborhoodatlas.medicine.[facility].edu/. Last address used for calculation [address] [...] AM EDT Office Visit General Surgery [address] [place] [address] [phone] Michael Mora PA-C 9500 [place] [address] follow up- add on ok'd by Michael 04/07/2025 1:00 PM EDT [facility] [address] [place] [phone] Agatha Kim PSYD 9500 [place] [address] 04/19/2025 11:00 AM EDT [facility] Neurological Judaism 9[address] [place] [address] Joann Loera APRN.STORE PLANNER [address] [place] [phone] Cognitive movement issues 04/21/2025 8:30 AM EDT [facility] Nutrition Therapy [address] [place] [phone] Tiffany Banks, RD [address] [place] [phone] f/u TF forula tolerance and hydration 05/29/2025 9:00 AM EDT [facility] Gastroenterology [address] [place] [phone] Johanna Martinez MD [facility] [address] [place], [place] [phone] 3 month follow up 06/28/2025 10:00 AM T [facility] Neurology Pain [address] [place] 9014206 [place] [address] [place] [phone] Follow up for pain documented as of [...] documented as of this encounter Care Teams Supply Officer Relationship Specialty Start Date End Date Shlomo Hu II, MD [address] [place] [place] [address] PCP - General Internal Medicine 10/06/23 Jacob Sharp [address] [place] [address] Referring 04/30/[address] [place] [phone] Registered Dietitian Nutrition 06/24/[address]00 [place] [address] Registered Dietitian Nutrition 08/27/23 Yuan Miller MD, PhD 9500 [place] [address] Surgeon General Surgery 02/03/24 documented as of this encounter
--- OUTSIDE RECORDS SUMMARY | 2025-03-28 09:19 | XMS_ITS | Encounter Summary ---
Author Organization [facility] tem Address [id number] [address] [place] [address] Care Team Providers Care Fruit Washer Name Role Phone JerichoGamal leivagarth Dumont APRN-BUSINESS SOLUTIONS CONSULTANT Primary Care Provider + Encounter Details Date Type Department Care Team (Late st Contact Info) Description 05/09/2022 Telephone [facility] - CT Imaging [address] [place] [phone] Felisha Seals, PIETRO Social History Tobacco Use Types Packs/Day Years [...] How often do you attend chur or yazidism services? Patient declined 05/08/2022 Do you belong [...] Answer Date Recorded Total Score 0 05/08/2022 [facility] ional Health [...] Recorded Do you need help finding a [facility] career center and/or a training program? [...] have Coronavirus / COVID-19? No / Unsure 05/12/2022 8:56 AM EDT documented as of this encounter [...] Score: 0 05/08/20 22 4:29 PM EDT documented as of this encounter Care Teams Fruit Washer Relationship Specialty Start Date End Date Skylar Echavarria APRN-BUSINESS SOLUTIONS CONSULTANT [address] [place] [address] PCP - General Internal Medicine 11/18/23 documented as of this encounter
--- OUTSIDE RECORDS SUMMARY | 2025-03-28 09:19 | XMS_ITS | Encounter Summary ---
Author Organization [facility] Address [address] [place] [address] Care Team Providers Care Actuarial Science Teacher Name Role Phone Jacob Sharp Unavailable Rasheeda Newton RD Unavailable [phone] Unavailable [phone] Fritz HENDERSON MD, Shlomo Momin Primary Care Provider [phone] Yuan Miller MD, PhD Unavailable [phone] Source Comments In the event this information is protected by the Federal Confidentiality of Alcohol and Drug AbusePatient Records regulations: The Federal rules restrict any use of the information to criminally investigate or prosecute any alcohol or drug abuse patient.[facility] Encounter Details Date Type Department Care Team (Late st Contact Info) Description 02/16/2025 Get Medical Advice PAIN [place] [address] [address] [place] [address] Johann Echeverria MD [address] [place] [address] [place] [address] Neuropathy pain Social History Tobacco Use Types Packs/Day Years Used Date Smoking Tobacco: Never Smokeless Tobacco: Never Alcohol Use Standard Drinks/Week Comments Not Currently 0 (1 standard drink = 0.6 oz pur e alcohol) [facility] Utilities Answer Date Recorded In the [...] is lower risk 4 03/05/2023 Data from: https://www.neighborhoodatlas.[facility]/. Last address used for calculation [address] 270 03/05/2023 Comments [...] AM EDT Office Visit General Surgery [address] [phone] Michael Mora PA-C [address] [place] [phone] follow up- add on ok'd by Michael 04/07/2025 1:00 PM EDT [facility] Neurological Zoroastrian [address] [place] [address] [phone] Agatha Kim PSYD [address] [place] [phone] 04/19/2025 11:00 AM EDT [facility] Neurological Zoroastrian [address] [place] [phone] Joann Loera APRN.RADIOGRAPHIC TECHNOLOGIST [address] [place] [address] [phone] Cognitive movement issues 04/21/2025 8:30 AM EDT [facility] Nutrition Therapy [address] [place] [phone] Tiffany Banks, RD [address] [place] [phone] f/u TF forula tolerance and hydration 05/29/2025 9:00 AM EDT [facility] Gastroenterology [address] [place] [phone] Johanna Martinez MD [facility] [address] [place], [place] [address] 3 month follow up 06/28/2025 10:00 AM EDT [facility] Neurology Pain [address] [place] [phone] Wilma Lei, [address] [phone] Follow up for pain documented as of this encounter Visit Diagnoses Not on filedocumented in this encounter Care Teams Actuarial Science Teacher Relationship Specialty Start Date End Date Shlomo Hu II, MD [address] [facility] [address] [place] [address] PCP - General Internal Medicine 10/06/23 Jacob Sharp [address] [place] [address] Referring 04/30/[address] [place] [phone] Registered Dietitian Nutrition 06/24/[address] [place] [address] Registered Dietitian Nutrition 08/27/23 Yuan Miller MD, PhD 9500 [place] [address] Surgeon General Surgery 02/03/24 documented as of this encounter
--- OUTSIDE RECORDS SUMMARY | 2025-03-28 09:19 | XMS_ITS | Encounter Summary ---
Author Organization [facility] Address [address] [place] [address] Care Team Providers Care Hair Salon Manager Name Role Phone Jacob Sharp Unavailable Rasheeda Newton RD Unavailable [phone] Unavailable [phone] Fritz HENDERSON MD, Shlomo Momin Primary Care Provider [phone] Yuan Miller MD, PhD Unavailable [phone] Source Comments In the event this information is protected by the Federal Confidentiality of Alcohol and Drug AbusePatient Records regulations: The Federal rules restrict any use of the information to criminally investigate or prosecute any alcohol or drug abuse patient.[facility] Encounter Details Date Type Department Care Team (Late st Contact Info) Description 03/29/2024 Patient Msg Gastroenterology [address] [id number] Provider, Ccf follow up on xray Social History Tobacco Use Types Packs/Day Years [...] is lower risk 4 03/05/2023 Data from: https://www.neighborhoodatlas.medicine.[facility].edu/. Last address used for calculation 17[address] [...] AM EDT Office Visit General Surgery [address] [id number] Michael Mora PA-C 9500 [place] [address] follow up- add on ok'd by Michael 04/07/2025 1:00 PM EDT [facility] [address] [place] [address] Agatha Kim PSYD [address] [address] [id number] 04/19/2025 11:00 AM EDT [facility] Neurological Caodaism [address] [phone] Joann Loera APRN.ELECTRICIAN HELPER 9500 [place] [address] Cognitive movement issues 04/21/2025 8:30 AM EDT [facility] Nutrition Therapy [address] [id number] Tiffany Banks, RD [address] [place] [address] 3097195 f/u TF forula tolerance and hydration 05/29/2025 9:00 AM EDT [facility] Gastroenterology [address] [id number] Johanna Martinez MD [facility] [address] [place], [place] [address] 3 month follow up 06/28/2025 10:00 AM EDT [facility] Neurology Pain [address] [phone] [place] [address] [address] [id number] Follow up for pain documented as of [...] documented as of this encounter Care Teams Hair Salon Manager Relationship Specialty Start Date End Date Shlomo Hu II, MD [address] [place] [address] PCP - General Internal Medicine 10/06/23 Jacob Sharp [address] [place] [address] Referring 04/30/[address] [place] [phone] Registered Dietitian Nutrition 06/24/[address] [address] [phone] Registered Dietitian Nutrition 08/27/23 Yuan Miller MD, PhD 7257 [place] [address] Surgeon General Surgery 02/03/24 documented as of this encounter
--- OUTSIDE RECORDS SUMMARY | 2025-03-28 09:19 | XMS_ITS | Encounter Summary ---
Author Organization [facility] Address [address] [place] [address] Care Team Providers Care Wet End Supervisor Name Role Phone Siobhan Sharpjusto Unavailable Rasheeda Newton RD Unavailable [phone] Unavailable [phone] Fritz HENDERSON MD, Shlomo Momin Primary Care Provider [phone] Yuan Miller MD, PhD Unavailable [phone] Source Comments In the event this information is protected by the Federal Confidentiality of Alcohol and Drug AbusePatient Records regulations: The Federal rules restrict any use of the information to criminally investigate or prosecute any alcohol or drug abuse patient.[facility] Reason for Visit * Reason Comments Wedding Cake Designer - Other Orders need to be faxed Encounter Details Date Type Department Care Team (Late st Contact Info) Description 03/02/2025 Telephone Hematology/Oncology [address] [place] [address] Jeanna Reed APRN.CAP PARTS CUTTER [address] [place] [address] Wedding Cake Designer - Other (Orders need to be faxed) Social History Tobacco Use Types Packs/Day Years Used Date Smoking Tobacco: Never Smokeless Tobacco: Never Alcohol Use Standard Drinks/Week Comments Not Currently 0 (1 standard drink = 0.6 oz pur e alcohol) [facility] Utilities Answer Date Recorded In the [...] in the past 12 m [facility], were you homeless or living in a longterm (including now)? No 10/18/2024 Area Deprivation Index Answer Date Reagan rded National Score (1-100), lower number is lower ri sk 63 03/05/2023 State Score (1-10), lower number is lower risk 4 03/05/2023 Data from: https://www.neighborhoodatlas.medicine.[facility].edu/. Last address used for calculation [address] 03/05/2023 Comments No [...] encounter Miscellaneous Notes * Telephone Encounter - Oralia Wan - 03/02/2025 9:27 AM EDT Melina Taveras is calling Jeanna Reed APRN.CNP today regarding Wedding Cake Designer - Other (Orders need to be faxed) PCP fax# [phone] for imaging center. Need orders faxed over do she can get imaging completed. Said she spoke to someone last week and nothing was faxed. Patient has been identified by name and birthdate. Duration of symptoms: N/A Requesting response back: call on cell [phone] (home) [phone] (work) [phone] (cell) Oralia Wan March 02, 2025 documented in this encounter Plan of Treatment Upcoming Encounters Date Type Department Care Team (Latest Contact Info) Description 03/31/2025 11:00 AM EDT Office Visit General Surgery [address] [place], [place] [phone] Michael Mora PA-C [address]00 [place] [address] follow up- add on ok'd by Michael 04/07/2025 1:00 PM EDT [facility] Confucian[facility] [address] [place] [address] Agatha Kim PSYD [address] [place] [address] 04/19/2025 11:00 AM EDT [facility]uc[facility] [address] [place] [address] Joann Loera APRN.CAP PARTS CUTTER [address] [place], [place] [id number] Cognitive movement issues 04/21/2025 8:30 AM EDT [facility] Nutrition Therapy [address] [phone] Tiffany Banks RD [address] [place] [address] [id number] f/u TF forula tolerance and hydration 05/29/2025 9:00 AM EDT [facility] Gastroenterology [address] [phone] Johanna Martinez MD [facility] [address] 0934806 3 month follow up 06/28/2025 10:00 AM EDT [facility] Neurology Pain [address] [place] [address] [place] [address] [address] [id number] Follow up for pain documented as of this encounter Visit Diagnoses Not on filedocumented in this encounter Care Teams Wet End Supervisor Relationship Specialty Start Date End Date Shlomo Hu II, MD [address] [facility] 110 [place] [address] PCP - General Internal Medicine 10/06/23 Jacob Sharp [address] [place] [address] Referring 04/30/[address] [phone] Registered Dietitian Nutrition 06/24/[address] [facility] [place] [phone] Registered Dietitian Nutrition 08/27/23 Yuan Miller MD, PhD [facility] [place] [phone] Surgeon General Surgery 02/03/24 documented as of this encounter
--- OUTSIDE RECORDS SUMMARY | 2025-03-28 09:19 | XMS_ITS | Encounter Summary ---
Author Organization [facility] Address [address] [facility] [place] [address] Care Team Providers Care Data Security Coordinator Name Role Phone Shlomo Hu MD Primary Care Provider [phone] Jess Marsh LPN Unavailable Esthela Tesfaye HEARING THERAPIST Unavailable [phone] Encounter Details Date Type Department Care Team (Late st Contact Info) Description 03/15/2025 Abstract [facility] [address] [facility] 110 [place] [address] Shlomo Hu MD [address] [facility] 110 [place] [address] Social History Tobacco Use Types Packs/Day Years [...] How often do you attend chur or tenriism services? Never 04/18/2024 Do you belong to [...] Recorded Patient Health Questionnaire-2 Score 2 03/16/2025 [facility] [...] living in a fpc (including now)? 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 Not on file [...] Visit [facility] [address] [place] [address] Tanya Lozano MD [address] [place] [address] 04/20/2025 3:00 PM EDT Office Visit [facility] P[facility] [address] [place] [address] Sonny Rodriguez DPM [address] [address] 05/04/2025 2:50 PM EDT Office Visit [facility] [address] [place] [address] Sonny Rodriguez DPM [address] [address] documented as of this encounter Visit Diagnoses Not on filedocumented in this encounter Additional Health Concerns Assessment Noted Time PHQ-9 Depression Total Score: 18 024 9:42 AM EDT documented as of this encounter Care Teams Data Security Coordinator Relationship Specialty Start Date End Date Shlomo Hu MD [address] [facility] 110 [place] [address] PCP - General Internal Medicine 02/15/23 Jess Marsh LPN [address] [facility] 110 [place] [address] 12/06/24 Esthela Tesfaye, KIRA [address] [place] [address] Timber Management Technician Family Medicine 02/03/25 documented as of this encounter
--- OUTSIDE RECORDS SUMMARY | 2025-03-28 09:20 | XMS_ITS | Encounter Summary ---
Author Organization [facility] Address [address] [place] [address] Care Team Providers Care Dobie Worker Name Role Phone Jacob Sharp Unavailable Rasheeda Newton RD Unavailable [phone] Unavailable [phone] Fritz HENDERSON MD, Shlomo Momin Primary Care Provider [phone] Yuan Miller MD, PhD Unavailable [phone] Source Comments In the event this information is protected by the Federal Confidentiality of Alcohol and Drug AbusePatient Records regulations: The Federal rules restrict any use of the information to criminally investigate or prosecute any alcohol or drug abuse patient.[facility] Encounter Details Date Type Department Care Team (Late st Contact Info) Description 04/10/2024 Get Medical Advice General Surgery 9300 [place] [address] Michael Mora PA-C [address] [place] [address] Feeding tube Social History Tobacco [...] PHQ-2 Answer Date Recorded PHQ-2 score 5 04/04/2024 Hunger Vital Sign Answer Date Recorded Within [...] risk 4 03/05/2023 Data from: https://www.neighborhoodatlas.medicine.[facility].edu/. Last address used for calculation [address] [...] AM EDT Office Visit General Surgery 9[address] [place] [address] Michael Mora PA-C [address] [place] [address] follow up- add on ok'd by Michael 04/07/2025 1:00 PM EDT [facility]isc[facility] [address] [phone] Agatha Kim PSYD [address] [place] [address] 04/19/2025 11:00 AM EDT [facility] Neurological Episcopalian [address] [place] [address] Joann Loera APRN.CHIROPRACTIC DOCTOR [address] [phone] Cognitive movement issues 04/21/2025 8:30 AM EDT [facility] Nutrition Therapy [address] [phone] Tiffany Banks, RD [address] [place] [address] [phone] f/u TF forula tolerance and hydration 05/29/2025 9:00 AM EDT [facility] Gastroenterology [address] [phone] Johanna Martinez MD [facility] [address] [place], [place] [address] 3 month follow up 06/28/2025 10:00 AM EDT [facility] Neurology Pain [address] [place] 1178006 [place] [address] [address] [phone] Follow up for pain documented as of [...] documented as of this encounter Care Teams Dobie Worker Relationship Specialty Start Date End Date Shlomo Hu II, MD [address] [place] [address] PCP - General Internal Medicine 10/06/23 Jacob Sharp [address] [place] [address] Referring 04/30/[address] [place] [phone] Registered Dietitian Nutrition 06/24/[address] [place] [address] Registered Dietitian Nutrition 08/27/23 Yuan Miller MD, PhD [address] [place] [address] Surgeon General Surgery 02/03/24 documented as of this encounter
--- OUTSIDE RECORDS SUMMARY | 2025-03-28 09:20 | XMS_ITS | Encounter Summary ---
Author Organization [facility] Address [address] [place], [place] [address] Care Team Providers Care Dispatcher Radioactive Waste Disposal Name Role Phone Jacob Sharp Unavailable Rasheeda Newton RD Unavailable [phone] Unavailable [phone] Fritz HENDERSON MD, Shlomo Momin Primary Care Provider [phone] Yuan Miller MD, PhD Unavailable [phone] Source Comments In the event this information is protected by the Federal Confidentiality of Alcohol and Drug AbusePatient Records regulations: The Federal rules restrict any use of the information to criminally investigate or prosecute any alcohol or drug abuse patient.[facility] Encounter Details Date Type Department Care Team (Late st Contact Info) Description 03/09/2024 Get Medical Advice Rheumatology [address] [place], [place] [phone] [place] [address] [place] [address] Skin biopsy Social History Tobacco Use Types Packs/Day Years [...] in a fpc (including now)? No 02/16/2024 Area Deprivation Index Answer Date Reagan rded National Score (1-100), lower number is lower ri sk 63 03/05/2023 State Score (1-10), lower number is lower risk 4 03/05/2023 Data from: https://www.neighborhoodatlas.medicine.[facility].edu/. Last address used for calculation [address] [...] AM EDT Office Visit General Surgery [address] 3158006 Michael Mora PA-C [address] [place] [address] follow up- add on ok'd by Michael 04/07/2025 1:00 PM EDT [facility] Orthodox [address] [place] [address] 1028506 Agatha Kim PSYD [address] [place] [address] 04/19/2025 11:00 AM EDT [facility] Neurological Oriental Orthodox [address] [place] [address] Joann Loera APRN.CREDIT DIRECTOR [address] [phone] Cognitive movement issues 04/21/2025 8:30 AM EDT [facility] Nutrition Therapy [address] [phone] Tiffany Banks, RD [address] [place] [id number] f/u TF forula tolerance and hydration 05/29/2025 9:00 AM EDT [facility] Gastroenterology [address] [place] [address] [phone] Johanna Martinez MD [facility] [address] [place], [place] [address] 3 month follow up 06/28/2025 10:00 AM T [facility] Neurology Pain [address] [place] 1028506 [place] [address] [address] [phone] Follow up for pain documented as of [...] documented as of this encounter Care Teams Dispatcher Radioactive Waste Disposal Relationship Specialty Start Date End Date Shlomo Hu II, MD [address] [place] [address] PCP - General Internal Medicine 10/06/23 Jacob Sharp [address] [place] [address] Referring 04/30/[address] [place] [phone] Registered Dietitian Nutrition 06/24/[address]00 [place] [address] Registered Dietitian Nutrition 08/27/23 Yuan Miller MD, PhD [address] [place] [address] Surgeon General Surgery 02/03/24 documented as of this encounter
--- OUTSIDE RECORDS SUMMARY | 2025-03-28 09:20 | XMS_ITS | Encounter Summary ---
Author Organization [facility] Address [address] [place] [address] Care Team Providers Care Medical Office Manager Name Role Phone Shlomo Hu MD Primary Care Provider [phone] Jess Marsh LPN Unavailable Esthela Tesfaye CONTINUUM OF CARE MANAGER Unavailable [phone] Encounter Details Date Type Department Care Team (Latest Contact Info) Description 03/27/2025 Travel Social History Tobacco Use Types Packs/Day [...] often do you attend chur ch or holiness services? 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 [...] hopeless Several days 03/14 2:36 PM EDT YANETH, PARTHA Patient Health Questionnaire-2 Score 2 03/14 2:36 [...] [facility] [address] [place] [address] Tanya Lozano MD [address] [place] [address] 04/20/2025 3:00 PM EDT Office Visit [facility] [address] [place] [address] [place] [address] Sonny Rodriguez DPM 3[address] [facility] 5 [place] [address] 05/04/2025 2:50 PM EDT Office Visit [facility] [address] [place] [place] [address] Sonny Rodriguez DPM 3006 [facility] 5 [place] [address] documented as of this encounter Visit Diagnoses Not on filedocumented in this encounter Additional Health Concerns Assessment Noted Time PHQ-9 Depression Total Score: 18 024 9:42 AM EDT documented as of this encounter Care Teams Medical Office Manager Relationship Specialty Start Date End Date Shlomo Hu MD [address] [place] [place] [address] PCP - General Internal Medicine 02/15/23 Jess Marsh LPN [address] [place] [address] [place] [address] 12/06/24 Esthela Tesfaye, KIRA [address] [facility] [place] [address] Finishing Supervisor Family Medicine 02/03/25 documented as of this encounter
--- OUTSIDE RECORDS SUMMARY | 2025-03-28 09:20 | XMS_ITS | Encounter Summary ---
Author Organization [facility] Address [address] [place] [address] Care Team Providers Care Street Cleaner Name Role Phone Jacob Sharp Unavailable Rasheeda Newton RD Unavailable [phone] Unavailable [phone] Fritz HENDERSON MD, Shlomo Momin Primary Care Provider [phone] Yuan Miller MD, PhD Unavailable [phone] Source Comments In the event this information is protected by the Federal Confidentiality of Alcohol and Drug AbusePatient Records regulations: The Federal rules restrict any use of the information to criminally investigate or prosecute any alcohol or drug abuse patient.[facility] Encounter Details Date Type Department Care Team (Late st Contact Info) Description 03/15/2024 Get Medical Advice Neurology [address] [place] [address] Yg Solitario MD [address] [place] [address] Pain Social History Tobacco Use [...] is lower risk 4 03/05/2023 Data from: https://www.neighborhoodatlas.medicine.[facility].edu/. Last address used for calculation [address] [...] Office Visit General Surgery [address] [phone] Michael Mora PA-C [address] [place] [address] follow up- add on ok'd by Michael 04/07/2025 1:00 PM EDT [facility] [address] [place] [address] [phone] Agatha Kim PSYD [address]00 [place] [address] 04/19/2025 11:00 AM EDT [facility] Neurological Bahai [address] [place] [address] Joann Loera APRN.CHIEF MINISTER [address] [place] [address] Cognitive movement issues 04/21/2025 8:30 AM EDT [facility] Nutrition Therapy [address] [place] [address] [phone] Tiffany Bansk, RD [address]00 [place] [address] f/u TF forula tolerance and hydration 05/29/2025 9:00 AM EDT [facility] Gastroenterology [address] [place] [address] [phone] Johanna Martinez MD [facility] [address] [place], [place] [address] 3 month follow up 06/28/2025 10:00 AM EDT [facility] Neurology Pain [address] [place] [address] [place] [address] [place] [address] Follow up for pain documented as of [...] documented as of this encounter Care Teams Street Cleaner Relationship Specialty Start Date End Date Shlomo Hu II, MD [address] [facility] 110 [place] [address] PCP - General Internal Medicine 10/06/23 Jacob Sharp [address] [place] [address] Referring 04/30/[address] [place] [address] Registered Dietitian Nutrition 06/24/[address] [place] [address] Registered Dietitian Nutrition 08/27/23 Yuan Miller MD, PhD [address] [place] [address] Surgeon General Surgery 02/03/24 documented as of this encounter
--- OUTSIDE RECORDS SUMMARY | 2025-03-28 09:20 | XMS_ITS | Encounter Summary ---
Author Organization [facility] Address [address] [place] [address] Care Team Providers Care Melting Supervisor Name Role Phone Jacob Sharp Unavailable Rasheeda Newton RD Unavailable [phone] Unavailable [phone] Fritz HENDERSON MD, Shlomo Momin Primary Care Provider [phone] Yuan Miller MD, PhD Unavailable [phone] Source Comments In the event this information is protected by the Federal Confidentiality of Alcohol and Drug AbusePatient Records regulations: The Federal rules restrict any use of the information to criminally investigate or prosecute any alcohol or drug abuse patient.[facility] Encounter Details Date Type Department Care Team (Late st Contact Info) Description 03/07/2024 Get Medical Advice General Surgery [address] [place] [address] Yuan Miller MD, PhD [address] [place] [address] Follow up appt Social History Tobacco Use Types Packs/Day [...] EDT Office Visit General Surgery [address] [place] [address] Michael Mora PA-C [address] [place] [address] follow up- add on ok'd by Michael 04/07/2025 1:00 PM EDT [facility] [address] [place] [address] [phone] Agatha Kim PSYD [address]00 [place] [address] 04/19/2025 11:[address] [facility] Neurological Muslim [address] [place] [address] Joann Loera APRN.MEDICAL STAFF PHYSICIAN [address] [place] [address] [phone] Cognitive movement issues 04/21/2025 8:[address] [facility] Nutrition Therapy [address] [phone] Tiffany Banks, RD [address] [place] [phone] f/u TF forula tolerance and hydration 05/29/2025 9:[address] [facility] Gastroenterology [address] [place] [phone] Johanna Martinez MD [facility] [address] [place], [place] [address] 3 month follow up 06/28/2025 10:[address] [facility] Neurology Pain [address] [place] 4284806 [place] [address] [place] 6744395 Follow up for pain documented as of [...] documented as of this encounter Care Teams Melting Supervisor Relationship Specialty Start Date End Date Shlomo Hu II, MD [address] [place] [address] PCP - General Internal Medicine 10/06/23 Jacob Sharp [address] [place] [address] Referring 04/30/[address] [place] [phone] Registered Dietitian Nutrition 06/24/[address] [place] [address] Registered Dietitian Nutrition 08/27/23 Yuan Miller MD, PhD [address] [place] [address] Surgeon General Surgery 02/03/24 documented as of this encounter
--- OUTSIDE RECORDS SUMMARY | 2025-03-28 09:20 | XMS_ITS | Encounter Summary ---
Author Organization [facility] Address [address] [place] [address] Care Team Providers Care Roll Builder Name Role Phone Jacob Sharp Unavailable Rasheeda Newton RD Unavailable [phone] Unavailable [phone] Fritz HENDERSON MD, Shlomo Momin Primary Care Provider [phone] Yuan Miller MD, PhD Unavailable [phone] Source Comments In the event this information is protected by the Federal Confidentiality of Alcohol and Drug AbusePatient Records regulations: The Federal rules restrict any use of the information to criminally investigate or prosecute any alcohol or drug abuse patient.[facility] Encounter Details Date Type Department Care Team (Late st Contact Info) Description 04/08/2024 Patient Msg Gastroenterology [address] [id number] Provider, Ccf Paperwork needed for Relizorb Social History Tobacco Use Types [...] a group home (including now)? No 02/16/2024 Area Deprivation Index [...] Author No 02/21/2024 2:13 PM EDT Chelle Carrington RN documented in this encounter Plan of Treatment Upcoming Encounters Date Type Department Care Team (Latest Contact Info) Description 03/31/2025 11:00 AM EDT Office Visit General Surgery [address] [phone] Michael Mora PA-C [address] [place], [place] [phone] follow up- add on ok'd by Michael 04/07/2025 1:00 PM EDT [facility] [address] [place] [address] Agatha Kim PSYD [address] [phone] 04/19/2025 11:00 AM EDT [facility] Neurological Hindu [address] [phone] Joann Loera APRN.GROUNDS/MAINTENANCE SPECIALIST 9500 [place] [address] Cognitive movement issues 04/21/2025 8:30 AM EDT [facility] Nutrition Therapy [address] [phone] Tiffany Banks, RD [address] [id number] f/u TF forula tolerance and hydration 05/29/2025 9:00 AM EDT [facility] Gastroenterology [address] [phone] Johanna Martinez MD [facility] [address] [place], [place] [address] 3 month follow up 06/28/2025 10:00 AM EDT [facility] Neurology Pain [address] [phone] [place] [address] [place] [address] Follow up for pain documented as of [...] as of this encounter Care Teams Roll Builder Relationship Specialty Start Date End Date Shlomo Hu II, MD [address] [place] [address] PCP - General Internal Medicine 10/06/23 Jacob Sharp [address] [id number] Referring 04/30/[address] [place] [phone] Registered Dietitian Nutrition 06/24/[address] [id number] Registered Dietitian Nutrition 08/27/23 Yuan Miller MD, PhD [address] [id number] Surgeon General Surgery 02/03/24 documented as of this encounter
--- OUTSIDE RECORDS SUMMARY | 2025-03-28 09:20 | XMS_ITS | Encounter Summary ---
Author Organization [facility] Address [address] [place] [address] Care Team Providers Care Warehouse Assembly Worker Name Role Phone Shlomo Hu MD Primary Care Provider [phone] Jess Marsh LPN Unavailable Esthela Tesfaye HAT RENOVATOR Unavailable [phone] Encounter Details Date Type Department Care Team (Late st Contact Info) Description 03/16/[address] [facility] [address] [place] [phone] Jess Marsh LPN [address] [place] [address] [place] [address] Social History Tobacco Use Types [...] often do you attend chur ch or alevism services? 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 Pt asking about Restaurant Managing Partner referral and if it had been sent. Bioinformatics Computer Scientist in formed pt referral had not yet been sent. Bioinformatics Computer Scientist apologized and stated that pt was asked to see who pts insurance would cover locally and let us know name and number of Dr so we could send referral. Pt stated she though office was doing this. Pt said Don't worry she will look into it Thursday. Bioinformatics Computer Scientist will follow up with pt on Thursday to see if pt has gotten a list from her insurance. documented in this encounter Plan of Treatment Upcoming Encounters Date Type Department Care Team (Late st Contact Info) Description 04/12/2025 9:50 AM EDT Office Visit [facility] [address] [place] [address] Tanya Lozano MD [address] [place] [address] 04/20/2025 3:00 PM EDT Office Visit [facility] [address] [facility] 120 [place] [id number] Sonny Rodriguez DPM [address] [facility] 5 [place] [address] 05/04/2025 2:50 PM EDT Office Visit [facility] [address] [facility] [address] [place] [address] Sonny Rodriguez, DPM [address] [facility] 5 [place] [address] documented as of this encounter Visit Diagnoses Diagnosis DARREN (generalized anxiety disorder) Generalized anxiety disorder Hypertrophic cardiomyopathy (HCC) Other primary cardiomyopathies documented in this encounter Additional Health Concerns Assessment Noted Time PHQ-9 Depression Total Score: 18 024 9:42 AM EDT documented as of this encounter Care Teams Warehouse Assembly Worker Relationship Specialty Start Date End Date Shlomo Hu MD [address] [facility] 110 [place] [address] PCP - General Internal Medicine 02/15/23 Jess Marsh LPN [address] [facility] 110 [place] [address] 12/06/24 Esthela Tesfaye LSW [address] [place] [address] It Quality Assurance Analyst Family Medicine 02/03/25 documented as of this encounter
--- OUTSIDE RECORDS SUMMARY | 2025-03-28 09:20 | XMS_ITS | Encounter Summary ---
Author Organization [facility] Address [address] [place] [address] Care Team Providers Care Contracting Executive Name Role Phone Siobhan Sharpjusto Unavailable Rasheeda Newton RD Unavailable [phone] Unavailable [phone] Fritz HENDERSON MD, Shlomo Momin Primary Care Provider [phone] Yuan Miller MD, PhD Unavailable [phone] Source Comments In the event this information is protected by the Federal Confidentiality of Alcohol and Drug AbusePatient Records regulations: The Federal rules restrict any use of the information to criminally investigate or prosecute any alcohol or drug abuse patient.[facility] Reason for Visit * Reason Comments Radiology XR Encounter Details Date Type Department Care Team (Late st Contact Info) Description 04/07/2024 Radiology General Radiology [address] [place] [address] Pushpa Bush, RT(R) Radiology XR Social History Tobacco Use Types Packs/Day Years [...] is lower risk 4 03/05/2023 Data from: https://www.neighborhoodatlas.medicine.[facility].edu/. Last address used for calculation [address] [...] Chelle Connell RN documented in this encounter Progress Notes * Pushpa Bush, RT(R) - 04/07/2024 3:04 PM EDT Radiology Service Progress Note PATIENT NAME: Melina Taveras DATE OF SERVICE: April 07, 2024 TIME: 3:04 PM PATIENT IDENTITY VERIFICATION COMPLETED USING TWO (2) IDENTIFIERS: Name and Date of confirmedby patient verbally. FALL SCREENING: Has the patient had 2 falls in the last year or 1 fall with injury or currently using an Ambulatory Assistive Device (Walker, Cane, Wheelchair, Crutches, etc.)? No PATIENT GENDER DATA: Female. status: : No status: NO. PATIENT RELEVANT IMPLANT DATA REVIEWED: Not Applicable PATIENT PRESENTS WITH AN IMPLANTABLE OR ATTACHED TECHNICAL ADVISOR: No RADIOLOGY DEPARTMENT: General X-ray: Exam(s) Completed: Abdomen X-Ray: Abdomen PERIPHERAL IV DATA: Not applicable SIGNED BY: RT Sandee(R) April 07, 2024 3:04 PM documented in this encounter Plan of Treatment Upcoming Encounters Date Type Department Care Team (Latest Contact Info) Description 03/31/2025 11:00 AM EDT Office Visit General Surgery 9300 [place] [address] Michael Mora PA-C 9500 [place] [address] follow up- add on ok'd by Michael 04/07/2025 1:00 PM EDT [facility] Neurological Mormonism [address] [phone] Agatha Kim PSYD [address] [place] [address] 04/19/2025 11:00 AM EDT [facility] Neurological Mormonism [address] [place] [address] Joann Loera APRN.FOOD SERVICE AIDE [address] [place] [address] Cognitive movement issues 04/21/2025 8:30 AM EDT [facility] Nutrition Therapy [address] [phone] Tiffany Banks, RD [address] [place] [address] f/u TF forula tolerance and hydration 05/29/2025 9:00 AM EDT [facility] Gastroenterology [address] [address] Johanna Martinez MD [facility] [address] [place], [place] [address] 3 month follow up 06/28/2025 10:00 AM EDT [facility] Neurology Pain [address] [place], [place] 8274106 [place] [address] [place], [place] [phone] Follow up for pain documented as of [...] documented as of this encounter Care Teams Contracting Executive Relationship Specialty Start Date End Date Shlomo Hu II, MD [address] [facility] 110 [place] [address] PCP - General Internal Medicine 10/06/23 Jacob Sharp [address] [phone] Referring 04/30/[address] [place] [address] Registered Dietitian Nutrition 06/24/[address] [facility] [place] [address] Registered Dietitian Nutrition 08/27/23 Yuan Miller MD, PhD [address]00 [place] [address] Surgeon General Surgery 02/03/24 documented as of this encounter
--- OUTSIDE RECORDS SUMMARY | 2025-03-28 09:20 | XMS_ITS | Encounter Summary ---
Author Organization [facility] Address [address] [place], [place] [address] Care Team Providers Care Senior Software Quality Engineer Name Role Phone Jacob Sharp Unavailable Rasheeda Newton RD Unavailable [phone] Unavailable [phone] Fritz HENDERSON MD, Shlomo Momin Primary Care Provider [phone] Yuan Miller MD, PhD Unavailable [phone] Source Comments In the event this information is protected by the Federal Confidentiality of Alcohol and Drug AbusePatient Records regulations: The Federal rules restrict any use of the information to criminally investigate or prosecute any alcohol or drug abuse patient.[facility] Encounter Details Date Type Department Care Team (Late st Contact Info) Description 03/08/2024 Get Medical Advice Rheumatology [address] [place], [place] [phone] [place] [address] [place] [address] Follow up Social History Tobacco Use Types [...] in a long-term (including now)? No 02/16/2024 Area Deprivation Index [...] encounter Miscellaneous Notes * Telephone Encounter - Claribel Lewis RN - 03/10/2024 6:31 AM EDT Order faxed over to [facility]. Confirmation received. Claribel Lewis RN * Telephone Encounter - Caroline Guerrero RN - 03/09/2024 2:46 PM EDT Spoke with patient, she is requesting skin biopsy for small fiber neuropathy and US Parathyroid/Salivary gland be completed closer to home- [facility] in [place], she is requesting orders befaxed to [phone]. Caroline Guerrero RN * Telephone Encounter - Melina Estrada MD - 03/09/2024 2:21 PM EDT I placed an order under procedures. We may need to call the lab to assist with scheduling? [phone] * Telephone Encounter - Caroline Guerrero RN - 03/09/2024 1:37 PM EDT Attempted to reach - left detailed Vm that I do see an order for a US parathyroid/Salivary glands from 03/04/2024, left number to call and schedule. Caroline Guerrero RN * Telephone Encounter - Milly Burrell - 03/09/2024 12:04 PM EDT PT calling in to state she is waiting on orders from the provider for a skin biopsy. Please contactthe PT to assist. * Telephone Encounter - Melina Estrada MD - 03/08/2024 9:21 AM EDT I recommend reaching out to the pain clinic for their recommendations. They may want to increase her gabapentin, switch to Lyrica, trial amitriptyline, increase muscle relaxants, retrial narcotics ifthey think is appropriate, etc. Overall rheumatologic workup has been negative and I do not think my medications that suppress the immune system will be helpful. documented in this encounter Plan of Treatment Upcoming Encounters Date Type Department Care Team (Latest Contact Info) Description 03/31/2025 11:00 AM EDT Office Visit General Surgery [address] [place] [address] Michael Mora PA-C [address] [place] [address] follow up- add on ok'd by Michael 04/07/2025 1:00 PM EDT [facility] Neurological Zoroastrianism [address] [place] [address] Agatha Kim PSYD [address] [phone] 04/19/2025 11:00 AM EDT [facility] Neurological Zoroastrianism [address] [place] [address] Joann Loera APRN.SILVER SOLDERER [address] [phone] Cognitive movement issues 04/21/2025 8:30 AM T [facility] Nutrition Therapy 2048 [place] [address] Tiffany Banks, DIONNE [address]00 [place] [address] f/u TF forula tolerance and hydration 05/29/2025 9:00 AM [facility] Gastroenterology 2048 [place] [address] Johanna Martinez MD [facility] [address] [place] [address] 3 month follow up 06/28/2025 10:00 AM [facility] Neurology Pain [address] [phone] [place] [address] [address] [phone] Follow up for pain documented as of [...] of this encounter Care Teams Senior Software Quality Engineer Relationship Specialty Start Date End Date Shlomo Hu II, MD [address] [facility] 110 [place] [address] PCP - General Internal Medicine 10/06/23 Jacob Sharp [address] [place] [address] Referring 04/30/[address] [place] [phone] Registered Dietitian Nutrition 06/24/[address] [facility] [place] [address] Registered Dietitian Nutrition 08/27/23 Yuan Miller MD, PhD [address]504 [place] [address] Surgeon General Surgery 02/03/24 documented as of this encounter
--- OUTSIDE RECORDS SUMMARY | 2025-03-28 09:20 | XMS_ITS | Encounter Summary ---
Author Organization [facility] Address [address] [place], [place] [address] Care Team Providers Care Floodplain Manager Name Role Phone Jacob Sharp Unavailable Rasheeda Newton RD Unavailable [phone] Unavailable [phone] Fritz HENDERSON MD, Shlomo Momin Primary Care Provider [phone] Yuan iMller MD, PhD Unavailable [phone] Source Comments In the event this information is protected by the Federal Confidentiality of Alcohol and Drug AbusePatient Records regulations: The Federal rules restrict any use of the information to criminally investigate or prosecute any alcohol or drug abuse patient.[facility] Encounter Details Date Type Department Care Team (Late st Contact Info) Description 03/09/2024 Get Medical Advice Rheumatology [address] [place], [place] [phone] [place] [address] [place] [address] Ultra sounds Social History Tobacco Use Types Packs/Day Years [...] a senior living (including now)? No 02/16/2024 Area Deprivation Index Answer Date Reagan rded National Score (1-100), lower number is lower ri sk 63 03/05/2023 State Score (1-10), lower number is lower risk 4 03/05/2023 Data from: https://www.neighborhoodatlas.medicine.[facility].edu/. Last address used for calculation [address] [...] AM EDT Office Visit General Surgery [address] [phone] Michael Mora PA-C [address] [place] [address] follow up- add on ok'd by Michael 04/07/2025 1:00 PM EDT [facility] [address] [phone] Agatha Kim PSYD [address]00 [place] [address] 04/19/2025 11:00 AM EDT [facility] Neurological Buddhist [address] [place] [address] Joann Loera APRN.FOUR ROLL CALENDER OPERATOR [address] [phone] Cognitive movement issues 04/21/2025 8:30 AM EDT [facility] Nutrition Therapy [address] [phone] Tiffany Banks, RD [address] 6475395 f/u TF forula tolerance and hydration 05/29/2025 9:00 AM EDT [facility] Gastroenterology [address] [phone] Johanna Martinez MD [facility] [address] [place], [place] [address] 3 month follow up 06/28/2025 10:00 AM T [facility] Neurology Pain [address] 6475306 [place] [address] [address] 2965695 Follow up for pain documented as of [...] documented as of this encounter Care Teams Floodplain Manager Relationship Specialty Start Date End Date Shlomo Hu II, MD [address] [place] [address] PCP - General Internal Medicine 10/06/23 Jacob Sharp [address] [place] [address] Referring 04/30/[address] [place] [phone] Registered Dietitian Nutrition 06/24/[address]00 [place] [address] Registered Dietitian Nutrition 08/27/23 Yuan Miller MD, PhD 9500 [place] [address] Surgeon General Surgery 02/03/24 documented as of this encounter
--- OUTSIDE RECORDS SUMMARY | 2025-03-28 09:20 | XMS_ITS | Encounter Summary ---
Author Organization [facility] Address [address] [place], [place] [address] Care Team Providers Care Emergency Care Attendant Name Role Phone Jacob Sharp Unavailable Rasheeda Newton RD Unavailable [phone] Unavailable [phone] Fritz HENDERSON MD, Shlomo Momin Primary Care Provider [phone] Yuan Miller MD, PhD Unavailable [phone] Source Comments In the event this information is protected by the Federal Confidentiality of Alcohol and Drug AbusePatient Records regulations: The Federal rules restrict any use of the information to criminally investigate or prosecute any alcohol or drug abuse patient.[facility] Encounter Details Date Type Department Care Team (Late st Contact Info) Description 03/10/2024 Get Medical Advice Rheumatology [address] [place], [place] [phone] [place] [address] [place] [address] Pls Social History Tobacco Use Types Packs/Day Years [...] in a halfway (including now)? No 02/16/2024 Area Deprivation Index [...] AM EDT Office Visit General Surgery [address] [phone] Michael Mora PA-C [address]00 [place] [address] follow up- add on ok'd by Michael 04/07/2025 1:00 PM EDT [facility] [address] [place], [place] [phone] Agatha Kim PSYD [address]00 [place] [address] 04/19/2025 11:00 AM EDT [facility] Neurological Hinduism [address] [place] [address] Joann Loera APRN.LARD REFINER [address] [phone] Cognitive movement issues 04/21/2025 8:30 AM EDT [facility] Nutrition Therapy [address] [phone] Tiffany Banks, RD [address] [place] [phone] f/u TF forula tolerance and hydration 05/29/2025 9:00 AM EDT [facility] Gastroenterology [address] [phone] Johanna Martinez MD [facility] [address] [place], [place] [address] 3 month follow up 06/28/2025 10:00 AM EDT [facility] Neurology Pain [address] [place] [phone] [place] [address] [address] [phone] Follow up for pain documented as of [...] as of this encounter Care Teams Emergency Care Attendant Relationship Specialty Start Date End Date Shlomo Hu II, MD [address] [place] [address] PCP - General Internal Medicine 10/06/23 Jacob Sharp [address] [place] [address] Referring 04/30/[address] [place] [phone] Registered Dietitian Nutrition 06/24/[address] [place] [address] Registered Dietitian Nutrition 08/27/23 Yuan Miller MD, PhD 9500 [place] [address] Surgeon General Surgery 02/03/24 documented as of this encounter
--- OUTSIDE RECORDS SUMMARY | 2025-03-28 09:20 | XMS_ITS | Encounter Summary ---
Author Organization [facility] Address [address] [place] [address] Care Team Providers Care Manager Wound Name Role Phone Jacob Sharp Unavailable Rasheeda Newton RD Unavailable [phone] Unavailable [phone] Fritz HENDERSON MD, Shlomo Momin Primary Care Provider [phone] Yuan Miller MD, PhD Unavailable [phone] Source Comments In the event this information is protected by the Federal Confidentiality of Alcohol and Drug AbusePatient Records regulations: The Federal rules restrict any use of the information to criminally investigate or prosecute any alcohol or drug abuse patient.[facility] Encounter Details Date Type Department Care Team (Late st Contact Info) Description 04/15/2024 Patient [facility] [address] [phone] Provider, Ccf Obtain previous MRI images and medical records Social History Tobacco Use Types Packs/Day Years [...] AM EDT Office Visit General Surgery 9300 [place] [address] Michael Mora PA-C [address]00 [place] [address] follow up- add on ok'd by Michael 04/07/2025 1:00 PM EDT [facility] [address] [place] [address] Agatha Kim PSYD [address] [place] [phone] 04/19/2025 11:00 AM EDT [facility] Neurological Baptist [address] [address] [phone] Joann Loera APRN.WEB SOLUTIONS ARCHITECT 9500 [place] [address] Cognitive movement issues 04/21/2025 8:30 AM EDT [facility] Nutrition Therapy [address] [phone] Tiffany Banks, RD [address] [place] [phone] f/u TF forula tolerance and hydration 05/29/2025 9:00 AM EDT [facility] Gastroenterology [address] [address] 8226406 Johanna Martinez MD [facility] [address] [place], [place] [address] 3 month follow up 06/28/2025 10:00 AM EDT [facility] Neurology Pain [address] [place] [address] 0596406 [place] [address] [place] [address] Follow up for pain documented as of this encounter Visit Diagnoses Not on filedocumented in this encounter Additional Health Concerns Infection Onset Date Last Indicated Resolved Time COVID-19 Confirmed Comment:Anticipate 10 day isolation 04/12/2024 04/18/202404/14 8:51 PM EDT COVID-19 Rule-Out 04/18/2024 04/18/2024 04/18/2024 2:28 PM EDT COVID-19 Rule-Out 07/29/2024 07/29/2024 07/29/2024 7:20 PM EST documented as of this encounter Care Teams Manager Wound Relationship Specialty Start Date End Date Shlomo Hu II, MD [address] [facility] 110 [place] [address] PCP - General Internal Medicine 10/06/23 Jacob Sharp [address] [place] [address] Referring 04/30/[address] [place] [address] Registered Dietitian Nutrition 06/24/[address]01 [place] [address] Registered Dietitian Nutrition 08/27/23 Yuan Miller MD, PhD 9505 [place] [address] Surgeon General Surgery 02/03/24 documented as of this encounter
--- OUTSIDE RECORDS SUMMARY | 2025-03-28 09:20 | XMS_ITS | Encounter Summary ---
Author Organization [facility] Address [address] [place] [address] Care Team Providers Care Smoking Pipe Coater Name Role Phone Jacob Sharp Unavailable Rasheeda Newton RD Unavailable [phone] Unavailable [phone] Fritz HENDERSON MD, Shlomo Momin Primary Care Provider [phone] Yuan Miller MD, PhD Unavailable [phone] Source Comments In the event this information is protected by the Federal Confidentiality of Alcohol and Drug AbusePatient Records regulations: The Federal rules restrict any use of the information to criminally investigate or prosecute any alcohol or drug abuse patient.[facility] Encounter Details Date Type Department Care Team (Late st Contact Info) Description 03/07/2024 Patient Msg General Surgery [address] [place], [place] [id number] Provider, [facility] DDI appointment reminder Social History Tobacco Use Types Packs/Day Years [...] No 02/16/2024 Area Deprivation Index Answer Date Raegan rded National Score (1-100), lower number is [...] AM EDT Office Visit General Surgery [address] [place] [address] Michael Mora PA-C [address] [place] [id number] follow up- add on ok'd by Michael 04/07/2025 1:00 PM EDT [facility] [address] [place] [phone] Agatha Kim PSYD [address] [place] [id number] 04/19/2025 11:[address] [facility] Neurological Buddhism [address] [phone] Joann Loera APRN.PRINCIPAL JAVA SOFTWARE ENGINEER [address] [place] [address] Cognitive movement issues 04/21/2025 8:[address] [facility] Nutrition Therapy [address] [place] [id number] Tiffany Banks, RD [address] [place] [id number] f/u TF forula tolerance and hydration 05/29/2025 9:[address] [facility] Gastroenterology [address] [place] [id number] Johanna Martinez MD [facility] [address] [place], [place] [id number] 3 month follow up 06/28/2025 10:[address] [facility] Neurology Pain [address] [place] [id number] [place] [address] [place] [id number] Follow up for pain documented as of [...] documented as of this encounter Care Teams Smoking Pipe Coater Relationship Specialty Start Date End Date Shlomo Hu II, MD [address] [place] [address] PCP - General Internal Medicine 10/06/23 Jacob Sharp [address] [place] [address] Referring 04/30/[address] [phone] Registered Dietitian Nutrition 06/24/[address] [phone] Registered Dietitian Nutrition 08/27/23 Yuan Miller MD, PhD [address] [id number] Surgeon General Surgery 02/03/24 documented as of this encounter
--- OUTSIDE RECORDS SUMMARY | 2025-03-28 09:20 | XMS_ITS | Encounter Summary ---
Author Organization [facility] Address [address] [place] [address] Care Team Providers Care Auto Damage Appraiser Name Role Phone Jacob Sharp Unavailable Rasheeda Newton RD Unavailable [phone] Unavailable [phone] Fritz HENDERSON MD, Shlomo Momin Primary Care Provider [phone] Yuan Miller MD, PhD Unavailable [phone] Source Comments In the event this information is protected by the Federal Confidentiality of Alcohol and Drug AbusePatient Records regulations: The Federal rules restrict any use of the information to criminally investigate or prosecute any alcohol or drug abuse patient.[facility] Encounter Details Date Type Department Care Team (Latest Contact Info) Description 03/10/2024 Patient Msg Radiology [address] [place] [address] Provider, [facility] - FINAL ATTEMPT TO SCHEDULE Social History Tobacco Use Types Packs/Day Years [...] risk 4 03/05/2023 Data from: https://www.neighborhoodatlas.medicine.[facility].edu/. Last address used for calculation [address] [...] AM EDT Office Visit General Surgery [address] [place] [address] Michael Mora PA-C [address] [place], [place] [phone] follow up- add on ok'd by Michael 04/07/2025 1:00 PM EDT [facility] [address] [place] [address] Agatha Kim PSYD [address] [place] [phone] 04/19/2025 11:00 AM EDT [facility] Neurological Adventism [address] [place] [place] [phone] Joann Loera APRN.SENIOR STEREO COMPILER TEAM LEAD [address] [place] [address] Cognitive movement issues 04/21/2025 8:30 AM EDT [facility] Nutrition Therapy [address] [place] [phone] Tiffany Banks, RD [address] [place] [place] [id number] f/u TF forula tolerance and hydration 05/29/2025 9:00 AM EDT [facility] Gastroenterology [address] [place], [place] [phone] Johanna Martinez MD [facility] [address] [place], [place] [phone] 3 month follow up 06/28/2025 10:00 AM EDT [facility] Neurology Pain [address] [place] [phone] [place] [address] [place] [address] Follow up for pain documented as of [...] as of this encounter Care Teams Auto Damage Appraiser Relationship Specialty Start Date End Date Shlomo Hu II, MD [address] [place] [address] PCP - General Internal Medicine 10/06/23 Jacob Sharp [address] [place] [phone] Referring 04/30/[address] [place] [phone] Registered Dietitian Nutrition 06/24/[address] [place] [place] [phone] Registered Dietitian Nutrition 08/27/23 Yuan Miller MD, PhD [address] [place] [address] Surgeon General Surgery 02/03/24 documented as of this encounter
--- OUTSIDE RECORDS SUMMARY | 2025-03-28 09:20 | XMS_ITS | Encounter Summary ---
Author Organization [facility] Address [address] [place] [address] Care Team Providers Care Collection Team Lead Name Role Phone Jacob Sharp Unavailable Rasheeda Newton RD Unavailable [phone] Unavailable [phone] Fritz HENDERSON MD, Shlomo Momin Primary Care Provider [phone] Yuan Miller MD, PhD Unavailable [phone] Source Comments In the event this information is protected by the Federal Confidentiality of Alcohol and Drug AbusePatient Records regulations: The Federal rules restrict any use of the information to criminally investigate or prosecute any alcohol or drug abuse patient.[facility] Encounter Details Date Type Department Care Team (Late st Contact Info) Description 04/02/2024 Get Medical Advice Rheumatology [address] [phone] [place] [address] [place] [address] Issues Social History Tobacco Use Types Packs/Day Years [...] is lower risk 4 03/05/2023 Data from: https://www.neighborhoodatlas.medicine.[facility].edu/. Last address used for calculation [address] [...] Author No 02/21/2024 2:13 PM EDT Chelle oCnnell RN * Because of a physical, mental, [...] AM EDT Office Visit General Surgery [address] [place] [phone] Michael Mora PA-C [address] [place] [address] follow up- add on ok'd by Michael 04/07/2025 1:00 PM EDT [facility] [address] [place], [place] [phone] Agatha Kim PSYD [address] [place] [address] 04/19/2025 11:00 AM EDT [facility] Neurological Gnosticist [address] [place] [address] Joann Loera APRN.BUSINESS APPLICATIONS MANAGER [address] [place] [id number] Cognitive movement issues 04/21/2025 8:30 AM EDT [facility] Nutrition Therapy [address] [place] [phone] Tiffany Banks, RD [address] [place] [phone] f/u TF forula tolerance and hydration 05/29/2025 9:00 AM EDT [facility] Gastroenterology [address] [place] [phone] Johanna Martinez MD [facility] [address] [place], [place] [address] 3 month follow up 06/28/2025 10:00 AM EDT [facility] Neurology Pain [address] [place] [phone] [place] [address] [place] [phone] Follow up for pain documented as of [...] documented as of this encounter Care Teams Collection Team Lead Relationship Specialty Start Date End Date Shlomo Hu II, MD [address] [place] [address] PCP - General Internal Medicine 10/06/23 Jacob Sharp [address] [place] [address] Referring 04/30/[address] [place] [phone] Registered Dietitian Nutrition 06/24/[address] [place] [address] Registered Dietitian Nutrition 08/27/23 Yuan Miller MD, PhD [address] [place] [address] Surgeon General Surgery 02/03/24 documented as of this encounter
--- OUTSIDE RECORDS SUMMARY | 2025-03-28 09:20 | XMS_ITS | Clinical Summary ---
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 Role Phone Shlomo Hu MD Primary Care Provider [phone] Jess Marsh CANOE INSPECTOR Unavailable Esthela Tesfaye MATHS TUTOR Unavailable [phone] Allergies Active Allergy Reactions Criticality Noted Date Comments Aspartame Headache,Nausea Only 05/21/2022 Dobutamine Other 12/21/2024 Results documented on echo, cause KIMBERLEY Doxycycline Rash Low 11/18/2023 Ketorolac Unknown 01/15/2023 Paroxetine 08/08/2022 Other Reaction(s): Intolerance Gi upset Scopolamine Unknown 07/29/2022 Blurred vision Tramadol Unknown 01/15/2023 Medications B Complex Vitamins (vitamin B complex) tablet 08/04/20 22 Active RA Vitamin D-3 25 MCG (1000 UT) tablet Active levothyroxine (Synthroid) 50 MCG tablet 1 (one) time each day at the same time Active metoprolol tartrate (Lopressor) 25 MG tablet Active Fructooligosaccha rides (FOS PO) 08/17/20 23 Active dicyclomine (Bentyl) 20 MG tablet Take 20 mg by mouth in the morning and 20 mg in the evening. 07/20/20 23 Active esomeprazole (NexIUM) [address] capsule Take 40 mg by mouth in the morning and 40 mg in the evening. 12/04/19 24 Active baclofen (Lioresal) 10 MG tabletIndications :History of Dylon-en-Y gastric bypass Take 1 tablet (10 mg) by mouth in the morning and 1 tablet (10 mg) in the evening and 1 tablet (10 mg) before bedtime. 270 tablet 3 01/19/20 24 Active ondansetron ODT (Zofran-ODT) 4 MG disintegrating tabletIndications :Nausea and vomiting, unspecified vomiting type Take 1 tablet (4 mg) by mouth every 8 (eight) hours if needed for nausea or vomiting 42 tablet 5 01/25/20 24 Active methocarbamol (Robaxin) 750 MG tablet Take 750 mg by mouth every 8 (eight) hours if needed 02/29/20 24 Active eletriptan (Relpax) 40 MG tabletIndications :Nonintractable headache, unspecified chronicity pattern, unspecified headache type Take 1 tablet (40 mg) by mouth 1 (one) time if needed for migraine for up to 108 doses May repeat in 2 hours if unresolved. Do not exceed 80 mg in 24 hours. 27 tablet 3 05/11/20 24 Active promethazine (Phenergan) 50 MG tabletIndications :Nausea and vomiting, unspecified vomiting type Take 1 tablet (50 mg) by mouth every 8 (eight) hours if needed for nausea or vomiting 90 tablet 2 06/29/20 24 Active lurasidone (Latuda) 60 MG tabletIndications :Moderate episode of recurrent major depressive disorder (HCC) Take 1 tablet (60 mg) by mouth in the evening. Take with meals 30 tablet 2 09/19/19 25 Active traZODone (Desyrel) 100 MG tabletIndications :Insomnia, unspecified type Take 2 tablets (200 mg) by mouth as needed at bedtime for sleep 60 tablet 2 09/19/19 25 Active Cyanocobalamin (B-12 Compliance Injection) 1000 MCG/ML kitIndications:Hi story of Dylon-en-Y gastric bypass Inject 1,000 mcg as directed 1 (one) time per week 12 kit 3 09/22/19 25 2025 Active Syringe/Needle, Disp, (Luer Lock Safety Syringes) 25G X 1 3 ML miscIndications:H istory of Dylon-en-Y gastric bypass 1 Syringe 1 (one) time per week 12 each 3 09/22/19 25 2025 Active zinc oxide (Desitin) 40 % paste Apply 1 application topically if needed (J tube care) 10/27/20 24 Active naloxone (Narcan) 4 mg/0.1 mL nasal spray Administer 4 mg into affected nostril(s) if needed for opioid reversal 07/10/20 Active memantine (Namenda) 5 MG tablet Take 5 mg by mouth in the morning and 5 mg before bedtime. 09/12/20 Active clobetasol (Temovate) 0.05 % cream Apply 1 Application topically in the morning and 1 Application in the evening. 08/05/20 Active estradiol (Estrace) 0.5 MG tablet Take 0.5 mg by mouth in the morning. 09/12/20 24 Active venlafaxine (Effexor) 75 MG tabletIndications :Severe episode of recurrent major depressive disorder, without psychotic features (HCC) Take 2 tablets (150 mg) by mouth in the morning and 2 tablets (150 mg) before bedtime. 120 tablet 2 11/10/19 25 Active Skin Protectants, Misc. (InterDry 10 x36 ) sheetIndications: Candidiasis of skin Apply 1 Application topically Daily 30 each 11 11/10/19 Active colestipol (Colestid) 5 g granules Take 5 g by mouth in the morning and 5 g in the evening. 11/17/19 25 Active Suzetrigine (Journavx) 50 MG tablet 12/01/19 25 Active ergocalciferol (Vitamin D-2) 1.25 MG (07211 UT) capsuleIndication s:Vitamin D deficiency Take 1 capsule (1.25 mg) by mouth 1 (one) time per week 12 capsule 1 01/05/20 25 2024 Active pyridoxine (B-6) 50 MG tablet Take 50 mg by mouth in the morning. 01/15/20 24 Active psyllium (Metamucil) 400 MG capsule Take 5 capsules by mouth in the morning and 5 capsules at noon and 5 capsules in the evening and 5 capsules before bedtime. Active gabapentin (Neurontin) 300 MG capsuleIndication s:Chronic pain syndrome Take 1 capsule (300 mg) by mouth in the morning and 1 capsule (300 mg) in the evening and 1 capsule (300 mg) before bedtime. 01/06/20 25 2025 Active tiZANidine (Zanaflex) 4 MG tabletIndications :Chronic pain syndrome Take 2 tablets (8 mg) by mouth every 8 (eight) hours if needed for muscle spasms 180 tablet 2 01/06/20 25 Active Rimegepant Sulfate (Nurtec) 75 MG tablet dispersibleIndica tions:Chronic migraine without aura with status migrainosus, not intractable Place 1 tablet under the tongue See administration instructions Every other day as needed for migraine 16 tablet 5 03/06/20 25 Active gabapentin (Neurontin) 600 MG tabletIndications :Neuropathic pain Take 2 tablets (1,200 mg) by mouth in the morning and 2 tablets (1,200 mg) in the evening and 2 tablets (1,200 mg) before bedtime. 180 tablet 2 03/16/20 25 2024 Active estradiol (Estrace) 0.1 MG/GM vaginal creamIndications: Postmenopausal atrophic vaginitis Apply to vagina nightly for 2 week then every Thursday/Thursday/ Thursday. 42.5 g 3 03/16/20 25 2025 Active Vitamin D-Vitamin K (K2-D3 5000) 5000-90 UNIT-MCG capsule Take 1 capsule by mouth in the morning. 12/03/19 24 2024 Discontin ued(Disco ntinued by another clinician ) Nutritional Supplements (Peptamen 1.5 Rosales) liquid 35 mL/hr by Enteral route in the morning. Goal Rate (mL/hr x hours): 35 mL/hour x 22 hours (770 total mL, 1155 kcal, 52 gm protein, 594 mL free water). Hold TF 1 hour pre and post synthroid dose. 02/29/20 24 2024 Discontin ued(Disco ntinued by another clinician ) gabapentin (Neurontin) 600 MG tablet Take 600 mg by mouth in the morning and 600 mg in the evening and 600 mg before bedtime. 09/12/20 24 2024 Discontin ued(Reord er) rOPINIRole (Requip) 0.5 MG tabletIndications :Restless Leg Syndrome Take 1-2 tablets (0.5-1 mg) by mouth in the morning and 1-2 tablets (0.5-1 mg) in the evening and 1-2 tablets (0.5-1 mg) before bedtime. 180 tablet 2 01/06/20 25 2024 Discontin ued(Disco ntinued by another clinician ) rizatriptan (Maxalt) 10 MG tabletIndications :Chronic migraine without aura with status migrainosus, not intractable Take 1 tablet (10 mg) by mouth 1 (one) time if needed for migraine May repeat in 2 hours if unresolved. Do not exceed 30 mg in 24 hours. 8 tablet 1 03/07/20 25 2024 Discontin ued(Disco ntinued by another clinician ) amoxicillin-clavu lanate (Augmentin) 875-125 MG tabletIndications :Chronic wound infection of abdomen, subsequent encounter Take 1 tablet (875 mg) by mouth in the morning and 1 tablet (875 mg) before bedtime. Do all this for 10 days. 20 tablet 03/16/20 25 2024 mupirocin (Bactroban) 2 % ointmentIndicatio ns:Chronic wound infection of abdomen, subsequent encounter Apply topically in the morning and in the evening and before bedtime. Do all this for 10 days. 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 05/11/2024 Recurrent major depression-severe 05/10/2024 Recurrent major depressive disorder, in partial remission 04/18/2024 Somatic symptom disorder 04/18/2024 S/P bariatric surgery 02/15/2024 Neuropathic pain 02/02/2024 Cyclical vomiting 01/21/2024 Pulmonary nodules/lesions, multiple 01/21/2024 CLABSI (central line-associated bloodstream infe ction) 01/14/2024 Jejunostomy tube present 01/14/2024 DARREN (generalized anxiety disorder) 01/12/2024 Thyroid nodule 11/20/2023 Thyroid enlargement 11/20/2023 Acute upper GI bleed 11/12/2023 Complications of gastric bypass surgery 10/27/19 Dehydration 10/27/2023 Gastroparesis 10/27/2023 Hypokalemia 10/27/2023 Hypomagnesemia 10/27/2023 Pyloric stenosis ([facility]HS-HCC) 10/27/2023 FTT (failure to thrive) in adult 08/16/2023 Intestinal malabsorption 08/16/2023 On tube feeding diet 08/16/2023 Myalgia 08/13/2023 Malnutrition of moderate degree (HHS-HCC) 2022 Morbid obesity 05/04/2023 Overview (05/04/2023): Last Assessment & Plan: Assessment: BMI 36.6,had gastric sleeve surgery In 2011,still attempting to lose weight Epigastric pain 04/22/2023 History of Clostridium difficile colitis 023 Adjustment disorder with mixed anxiety and depre ssed mood 02/16/2023 Blepharitis 02/16/2023 Chronic migraine without aur a with status migrainosus, not intractable 02/16/2023 Bruna glabrata infection 02/16/2023 H/O total hysterectomy 02/16/2023 Hypothyroidism 02/16/2023 Kidney stone 02/16/2023 Disorder of stomach 02/16/2023 Nausea and vomiting 02/16/2023 ADD (attention deficit disorder) without hyperac tivity 01/15/2023 Anxiety 01/15/2023 C. 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 022 Overview (05/04/2023): Last Assessment & Plan: Assessment: Labs stable Hemoglobin 11.7 - 15.5 g/dL 11.6 Low Hematocrit 35 - 47 % 34.1 Low Vitamin D deficiency 06/17/2022 Diarrhea due to malabsorption 06/16/2022 Overflow diarrhea 06/16/2022 History of Dylon-en-Y gastric bypass 04/08/2022 Overview (05/04/2023): Last Assessment & Plan: Assessment: See HPI Gastroesophageal reflux dise ase with esophagitis without hemorrhage 05/17/2021 Ectopic thyroid tissue 08/10/2012 Neck mass 07/09/2012 Breast mass 11/04/2007 Overview (05/04/2023): Right, biopsy Resolved Problems Problem Noted Date Diagnosed Date Resolved Date Chronic health problem 12/22/202303/28 Hx of Clostridium difficile infection 10/27/2023 09/28/2024 Chronic migraine without aur a, with status migrainosus 05/04/2023 03/28/2025 Encounter for cosmetic surgery 05/04/2023 09/28/2024 Type 2 diabetes mellitus wit hout complication, without long-term current use of insulin 03/02/2023 10/21/2023 Malnutrition of mild degree ([facility]-HCC) 06/26/2022 01/21/2024 Overview (05/04/2023): Last Assessment & Plan: Assessment: receiving TPN through PICC line due to inability to eat/ abdominal pain Baldness 05/13/2022 09/15/2023 Encounters Date Type Department Care Team Description 03/27/2025 2:30 PM EDT Office Visit [facility] [address] [facility] [address] [place] [phone] Yanci Aguilar, PA Change in stool (Primary Dx); Watery stools; Left arm swelling; Nausea and vomiting, unspecified vomiting type; Lymphedema; Feeding difficulties; History of Clostridium difficile colitis 03/27/2025 Travel 03/16/2025 9:30 AM EDT Office Visit [facility] [address] [facility] [address] [place] [phone] Angelina Polk, FELICITA Neuropathic pain (Primary Dx); Apraxia of speech; Hypertrophic cardiomyopathy (HCC); Disorder of stomach; S/P bariatric surgery; History of Dylon-en-Y gastric bypass; Jejunostomy tube present (HCC); Jejunostomy site infection (HCC); Feeding difficulties; Chronic wound infection of abdomen, subsequent encounter; Postmenopausal atrophic vaginitis 03/16/2025 Patient Outreach [facility] [address] [place] [address] Jess Marsh LPN 03/16/2025 [employer] flowsheet [facility] [address] [facility] [address] [place] [address] Angelina Polk NP 03/16/2025 Travel 03/15/2025 Travel 03/15/2025 Orders Only [facility] [address] [place] [address] Melba Gerardo Preop examination 03/15/2025 Abstract [facility] [address] [facility] [address] [place] [address] Shlomo Hu MD 03/09/2025 11:30 AM EDT Ancillary Procedure [facility] [address] [place] [place] [address] Other abnormal and inconclusive findings on diagnostic imaging of breast 03/09/2025 11:00 AM EDT Ancillary Procedure [facility] [address] [place] [place] [address] Other abnormal and inconclusive findings on diagnostic imaging of breast 03/09/2025 Travel 03/07/2025 Telephone [facility] [address] [facility] [address] [place] [address] Claribel Gomes MA 03/07/2025 Travel 03/07/2025 Telephone [facility] [address] [facility] [address] [place] [address] Yanci Aguilar PA 03/06/2025 Telephone [facility] [address] [facility] [address] [place] [address] Yanci Aguilar PA 03/01/2025 Patient Outreach [facility] [place] [address] [place] [address] Claribel Scott, PIETRO 02/28/2025 Telephone [facility] [address] [facility] [address] [place] [address] Sadie Nina Med Refill 02/22/2025 Patient Outreach [facility] [place] [address] [place] [address] Esthela Tesfaye LSW 02/21/2025 Patient Outreach [facility] [place] [address] [place] [address] Claribel Scott, PIETRO 02/15/2025 Clinisync Result Encounter [facility] External Department Unsolicited Provider, Generic External Data 02/15/2025 Abstract [facility] [address] [facility] [address] [place] [address] Shlomo Hu MD 02/14/2025 Abstract [facility] [address] [facility] [address] [place] [address] Shlomo Hu MD 02/02/2025 10:10 AM EDT Office Visit [facility] [address] [facility] [address] [place] [address] Sonny Rodriguez DPM Contusion of fifth toe of left foot, initial encounter (Primary Dx); Paronychia, toe, left; Hav (hallux abducto valgus), left; Hav (hallux abducto valgus), right; Metatarsal deformity, left; Acquired deformity of left toe 02/02/2025 Abstract [facility] [address] [facility] [address] [place] [address] Shlomo Hu MD 02/02/2025 Telephone [facility] [address] [facility] [address] [place] [address] Sonny Rodriguez DPM 02/02/2025 Bamboo flowsheet [facility] [address] [facility] [address] [place] [address] Sonny Rodriguez, EFREN 02/02/2025 Travel 02/01/2025 Patient Outreach [facility] [address] [place] [address] Esthela Tesfaye, MATHS TUTOR 02/01/2025 Travel 01/31/2025 Abstract [facility] [address] [facility] [address] [place] [address] Shlomo Hu MD 01/31/2025 Abstract [facility] [address] [facility] [address] [place] [address] Shlomo Hu MD 01/27/2025 Patient Outreach [facility] [address] [place] [address] Jess Marsh LPN 01/23/2025 Clinisync Result Encounter [facility] External Department Unsolicited Provider, Generic External Data 01/10/2025 Patient Outreach [facility] [address] [place] [address] Jess Marsh CANOE INSPECTOR 01/10/2025 Telephone [facility] [address] [place] [address] Jess Marsh CANOE INSPECTOR 01/10/2025 Telephone [facility] [address] [facility] [address] [place] [address] Yanci Aguilar PA 01/09/2025 Abstract [facility] [address] [facility] [address] [place] [address] Shlomo Hu MD 01/05/2025 10:45 AM EDT Ancillary Procedure [facility] [address] [place] [address] 01/05/2025 10:10 AM EDT Office Visit [facility] [address] [facility] [address] [place] [address] Sonny Rodriguez DPM Contusion of fifth toe of left foot, initial encounter (Primary Dx); Paronychia, toe, left; Hav (hallux abducto valgus), left; Hav (hallux abducto valgus), right 01/05/2025 9:30 AM EDT Office Visit [facility] [address] [facility] [address] [place] [address] Yanci Aguilar PA Chronic pain syndrome (Primary Dx); History of Dylon-en-Y gastric bypass; Neuropathic pain; Jejunostomy tube present (HCC); Chronic migraine without aura with status migrainosus, not intractable 01/05/2025 External Result Encounter [facility] External Department Unsolicited Yanci Aguilar PA 01/05/2025 Telephone [facility] [address] [facility] [address] [place] [address] Sonny Rodriguez DPM Casting For Braces Or Orthotics 01/05/2025 Travel 01/04/2025 9:40 AM EDT Office Visit [facility] [address] [place] [address] Tanya Lozano MD Hyperparathyroidism due to vitamin D deficiency (HCC) (Primary Dx); Hypothyroidism, unspecified type ; H/O gastric bypass; Status post insertion of percutaneous endoscopic gastrostomy (PEG) tube (HCC); Acquired hypothyroidism ; Thyroid nodule ; Vitamin D deficiency 01/04/2025 Bamboo flowsheet [facility] [address] [place] [address] Tanya Lozano MD 01/03/2025 Travel 01/02/2025 Abstract [facility] [address] [facility] [address] [place] [address] Shlomo Hu MD from Last 3 Months Immunizations Immunization Administration Dates Next Due Influenza, Injectable, MDCK, preservative free 05/27/2024 Influenza, Recombinant, inje ctable, preservative free 08/06/2020 Influenza, injectable, quadr ivalent, preservative free 08/09/2023,06/16/2022,06/02/2021,2014 Tdap 04/20/2006 Zoster, Recombinant 05/27/2024 Family History Medical History Relation Name Comments No Known Problems Brother No Known Problems Daughter ADD / ADHD Father Tone Anxiety disorder Father Tone Heart disease Father Tone Alcohol abuse Mother Tone Heart disease Mother Tone ADD / ADHD Other 1 Juan F ADD / ADHD Other 2 Michael Heart disease Paternal Grandfather Jian rivera No Known Problems Sister No Known Problems Son Mental illness Neg Hx Relation Name Status Comments Brother 1 half brother Daughter Alive 1 daughter Father Tone Mother Tone Alive Other 1 Juan F Other 2 Michael Paternal Grandfather Jian rivera Sister 2 half sisters Son Alive 2 sons Social History Tobacco Use Types Packs/Day Years [...] week 04/18/2024 How often do you attend [facility] or confucianist services? Never 04/18/2024 Do you [...] Recorded Patient Health Questionnaire-2 Score 2 [facility] - Occupational Stress Questionnaire Answer Date Recorded [...] living in a fci (including now)? 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 Not on file Not on file Not on file Last Filed Vital Signs Vital Sign Reading Time Taken Comments Blood Pressure 124/82 03/27/2025 2:42 PM EDT Pulse 86 03/27/2025 2:42 PM EDT Temperature 37.4 C (99.4 F) 11/02/2023 10:09 AM EST Respiratory Rate 17 03/27/2025 2:42 PM EDT Oxygen Saturation 97% 03/27/2025 2:42 PM EDT Inhaled Oxygen Concentration - - Weight 93 kg (205 lb) 03/27/2025 2:42 PM EDT Height 175.3 cm (5' 9 ) 03/27/2025 2:42 PM EDT Body Mass Index 30.27 03/27/2025 2:42 PM EDT Plan of Treatment Upcoming Encounters Date Type Department Care Team (Late st Contact Info) Description 04/12/2025 9:50 AM EDT Office Visit [facility] [address] [place] [address] Tanya Lozano MD [address] [place] [address] 04/20/2025 3:00 PM EDT Office Visit [facility] [address] [place] [phone] Sonny Rodriguez DPM [address] [facility] [address] [place] [address] 05/04/2025 2:50 PM EDT Office Visit [facility] [address] [facility] [address] [place] [address] Sonny Rodriguez DPLudmila [address] [facility] [address] [place] [address] Health Maintenance Due Date Last Done Comments CT Colonography 1976 FIT-DNA 1976 FIT 1976 Sigmoidoscopy 1976 Diabetes: Retinopathy Screening 1986 Diabetes: Urine Protein Screening 1995 FOBT 04/08/2024 04/08/2023 Diabetes: Hemoglobin A1C 01/04/2025 025, 10/04/2024, 04/15/2024, Additional history exists Influenza Vaccine (#1) 2025 , 08/09/2023, 06/16/2022, Additional history exists Mammogram 03/09/2026 03/09/2025, 12/2024, 02/15/2025, Additional history exists Colonoscopy 10/22/2033 10/22/2023, 09/15, 04/23/2023, Additional history exists Colorectal Cancer Screening 10/22/2033 Procedures Procedure Name Priority Date/Time Associated Diagnosis Comments BI US BREAST LIMITED RIGHT Routine 03/09/2025 11:53 AM EDT Other abnormal and inconclusive findings on diagnostic imaging of breast BI MAMMOGRAM DIAGNOSTIC TOMOSYNTHESIS RIGHT Routine 03/09/2025 11:24 AM EDT Other abnormal and inconclusive findings on diagnostic imaging of breast JEMAL SCREENING W LINDSAY 02/15/2025 3:25 PM EDT [facility] URINE PROTEIN ELECTROPHORESIS RANDOM (P) Routine 01/23/2025 11:49 AM EDT ALL MONOCLONAL PROTEIN,UR Routine 01/23/2025 11:49 AM EDT [facility] PROT/CREAT UR Routine 01/23/2025 11: 49 AM EDT [facility] PROT UR-MCNC Routine 01/23/2025 11:4 9 AM EDT [facility] URINALYSIS COMPLETE PNL UR Routine 01/23/2025 11:49 AM EDT [facility] IMMUNOFIXATION SCREEN, SERUM Routine 01/23/2025 11:47 AM EDT [facility] PROTEIN ELECTROPHORESIS SERUM (P) Routine 01/23/2025 11:47 AM EDT [facility] ALKALINE PHOSPHATASE ISOENZYMES (P) Routine 01/23/2025 11:47 AM EDT ALL HAVEN BY IFA SCREEN RFLX TITER Routine 01/23/2025 11:47 AM EDT ALL KAPPA/LAMBDA FREE SERUM Routine 01/23/2025 11:47 AM EDT [facility] CCP IGG SERPL-ACNC Routine 11:47 AM EDT [facility] TY SS-A AB SER-ACNC Routine 01/23/2025 11:47 AM EDT [facility] TY JO1 AB SER-ACNC Routine 01/24/20 11:47 AM EDT [facility] TY SCL70 IGG SER IA-ACNC Routine 01/23/2025 11:47 AM EDT [facility] TY SM IGG SER-ACNC Routine 01/24/20 11:47 AM EDT [facility] CENTROMERE AB SER QL IF Routine 01/23/2025 11:47 AM EDT [facility] TY SS-B AB SER-ACNC Routine 01/23/2025 11:47 AM EDT [facility] TY UROLOGIST AB SER-ACNC Routine 01/24/20 11:47 AM EDT [facility] CHROMATIN AB SERPL-ACNC Routine 01/23/2025 11:47 AM EDT [facility] C4 SERPL-MCNC Routine 01/23/2025 11: 47 AM EDT [facility] C3 SERPL-MCNC Routine 01/23/2025 11: 47 AM EDT [facility] RHEUMATOID FACT SERPL-ACNC Routine 01/23/2025 11:47 AM EDT [facility] CRP SERPL-MCNC Routine 01/23/2025 11 :47 AM EDT [facility] PROT SERPL-MCNC Routine 01/23/2025 1 1:47 AM EDT [facility] ALP SERPL-CCNC Routine 01/23/2025 11 :47 AM EDT [facility] CK SERPL-CCNC Routine 01/23/2025 11: 47 AM EDT [facility] ALDOLASE SERPL-CCNC Routine 01/24/20 11:47 AM EDT [facility] ESR BLD QN WESTRGRN Routine 01/24/20 11:47 AM EDT XR FOOT 3+ VIEWS LEFT Routine 01/05/2025 10:44 AM EDT Contusion of fifth toe of left foot, initial encounter SUPERFICIAL WOUND (HTRX) Routine 01/05/2025 10:10 AM EDT POCT GLYCATED HEMOGLOBIN, TOTAL Routine 10/06/2024 3:56 PM EST Abnormal glucose tolerance test COLONOSCOPY DIAGNOSTIC Routine 2:44 PM EST from Last 3 Months or Most Recently Relevant to Health Maintenance Results * Right breast US limited (03/09/2025 11:53 AM EDT) Anatomical Region Laterality Modality Breast Right Ultrasound 03/09/2025 2:00 PM EDT Impressions 03/09/2025 2:08 PM EDT Impression: Right breast ultrasound study demonstrates a likely small cyst at the 8 o'clock position. Small complex area at the 9 o'clock position most likely benign. Considerations as noted. This finding may correlate with the small asymmetric density noted on the mammogram study which appears similar to the prior 2022 screening mammogram study. No obvious neoplasm. When correlating all studies there is no convincing evidence of neoplasm. Follow-up ultrasound study of the right breast with similar views is recommended in 6 months to assess stability. BI-RADS 3 ELECTRONICALLY SIGNED BY: Abilio Paris M.D. Narrative 03/09/2025 2:08 PM EDT Examination: BI US BREAST LIMITED RIGHT Reason for Study: abn mamm Comparison: Screening mammogram study of the breasts dated 02/15/2025 and diagnostic mammogram study of the right breast dated 03/09/2025. Technique: Right breast ultrasound study was performed. Images were obtained from the 2:00 to the 9 o'clock position to include areas of interest based on the prior screening mammogram study from 02/15/2025 and the diagnostic mammogram study from 03/09/2025. Findings: At the 8 o'clock position there is a small area of decreased echogenicity likely representing a cyst measuring 0.5 x 0.4 x 0.2 cm. The finding is approximately 2.3 cm from the nipple. At the 9 o'clock position there is a small complex appearing area of decreased and increased echogenicity measuring approximately 0.5 x 0.4 x 0.3 cm. No obvious associated vascularity or posterior shadowing. The finding is approximately 2.3 cm from the nipple. The finding is likely benign and may represent small intramammary lymph node, fibroadenoma, complex cyst or small cluster of cysts. The finding may correlate with the small asymmetric density noted on the mammogram study which appears similar to the prior 2022 screening mammogram study. No obvious solid vascular mass to suggest neoplasm. No obvious fibrosis. When correlating all studies, no convincing evidence of neoplasm. us Jeanna Bias IMG US PROCEDURES Final Result * Right diagnostic mammogram with tomosynthesis (03/09/2025 11:24 AM EDT) Anatomical Region Laterality Modality Breast Right Mammography 03/09/2025 1:41 PM EDT Impressions 03/09/2025 1:59 PM EDT Diagnostic mammogram study of the right breast failed to convincing demonstrate the suggested architectural distortion medially on the 02/15/2025 screening mammogram study. Small asymmetric density likely benign when correlated with the ultrasound study as described. When correlating all studies no convincing evidence of neoplasm. Follow-up right breast ultrasound study in 6 months is recommended to assess stability of the small complex likely benign area noted. BIRADS 3 - Probably Benign Findings DENSITY: There are scattered areas of fibroglandular density. FOLLOW-UP: Breast Ultrasound in 6 Months Board Certified Radiologists. Accredited by the ACR and FDA. MAMMOGRAPHY IS VERY IMPORTANT TO YOUR HEALTH. THE [employer] GUIDELINES RECOMMEND THAT WOMEN 40 YEARS OF AGE AND OLDER SHOULD HAVE A MAMMOGRAM EVERY YEAR. A REMINDER LETTER WILL BE SENT AT THE APPROPRIATE TIME. ELECTRONICALLY SIGNED BY: Bessy Evangelista 03/09/2025 1:59 PM EDT EXAMINATION: BI MAMMOGRAM DIAGNOSTIC TOMOSYNTHESIS RIGHT CLINICAL HISTORY: abn mamm TECHNIQUE: Diagnostic digital mammogram study of the right breast was performed with 2D and 3D tomosynthesis imaging. Study was compared to the screening mammogram study of the breasts dated 02/15/2025, screening mammogram study of the breasts dated 11/2022 and ultrasound study of the right breast dated 03/09/2025. FINDINGS: Coned-down compression views and true lateral view of right breast were obtained. Previously suggested architectural distortion medially on the 02/15/2025 screening mammogram study is not convincingly demonstrated. On the 02/15/2025 study there were described several low-density focal asymmetries in the inferolateral aspect of the right breast, 1 of these areas is suggested at the mid level near the midline measuring approximately 0.4 x 0.3 cm, appearing similar to the 11/19/2022 study. Ultrasound study demonstrates small complex area at the 9 o'clock position likely correlating with this finding and likely benign when correlated with the ultrasound study. When correlating all studies no convincing evidence of neoplasm. us Jeanna Bias IMG BI PROCEDURES Final Result * [facility] SCREENING W LINDSAY (02/15/2025 3:25 PM EDT) Anatomical Region Laterality Modality Other 02/15/2025 3:25 PM EDT Narrative 02/17/2025 10:39 AM EDT * * *Final Report* * * DATE OF EXAM: Feb 15 2025 3:25PM DEREK [id number] - [facility] SCREENING W LINDSAY / PROCEDURE REASON: Encounter for screening mammogram for malignant neoplasm of breast * * * * Physician Interpretation * * * * RESULT: [address] [place] [address] #[id number] - [facility] SCREENING W LINDSAY HISTORY: 49 year-old patient [...] abnormalities are seen in the left breast. IMPRESSION: Finding 1: The focal asymmetries in [...] if the patient has dense breast tissue. REF#[id number]. Interpreting Radiologist: Pili Villar M.D. Electronically signed on: 02/17/2025 Artificial Leather Calender Operator: TIANNA Transcribe Date/Time: Feb 15 2025 3:08P Dictated by : PILI VILLAR MD This examination was interpreted and the report reviewed and electronically signed by: PILI VILLAR MD on Feb 17 2025 10:39AM EST [id number]^ACN Procedure Note Radiology, Radiologist, - 02/17/2025 * * *Final Report* * * DATE OF EXAM: Feb 15 2025 3:25PM DEREK 0582 - [facility] SCREENING W LINDSAY / PROCEDURE REASON: Encounter for screening mammogram for malignant neoplasm of breast * * * * Physician Interpretation * * * * RESULT: [address] [place] [address] #[id number] - [facility] SCREENING W LINDSAY HISTORY: 49 [...] abnormalities are seen in the left breast. IMPRESSION: Finding 1: The focal asymmetries in [...] if the patient has dense breast tissue. REF#[id number]. Interpreting Radiologist: Pili Villar M.D. Electronically signed on: 02/17/2025 Artificial Leather Calender Operator: TIANNA Transcribe Date/Time: Feb 15 2025 3:08P Dictated by : PILI VILLAR MD This examination was interpreted and the report reviewed and electronically signed by: PILI VILLAR MD on Feb 17 2025 10:39AM EST [id number]^ACN us Generic External Data Provider [facility] Final Result * [facility] URINE PROTEIN ELECTROPHORESIS RANDOM (P) (01/23/2025 11:49 AM EDT) Pathologist [facility] ALBUMIN MFR UR ELPH 29.36 % [facility] ALPHA1 GLOB MFR UR ELPH 3.02 % [facility] CCF ALPHA2 GLOB MFR UR ELPH 16.80 % [facility]CF [facility] B-GLOBULIN MFR UR ELPH 30.60 % [facility] GAMMA GLOB MFR UR ELPH 20.21 % [facility] PROT PATTERN UR ELPH-IMP No definitive M protein is identified on protein electrophores is. No definitive M protein is identified on protein electrophores is. [facility] CCF STAFF REVIEW (URINE ELECTRO) Reviewed by Mary Cedillo MD [facility] 01/23/2025 11:4 9 AM EDT 01/23/2025 4:46 PM EDT Narrative MONIKA - 01/25/2025 7:45 AM EDT Specimen Type: URINE SPECIMEN Ordering Facility: [facility] Address: [address] [place] [address] Original Ordering Provider: MELINA VYAS us Generic External Data Provider CL[facility] F inal Result [facility] [place] [address] * [facility] URINALYSIS COMPLETE PNL UR (01/23/2025 11:49 AM EDT) Pathologist [facility] COLOR UR Yellow Yellow [facility]CF CCF CLARITY SPEC Clear Clear [facility]CF CCF GLUCOSE UR STRIP-MCNC Negative Negative CCF CCF BILIRUB UR QL STRIP Negative Negative CCF CCF KETONES UR QL STRIP Negative Negative CCF CCF SP GR UR STRIP 1.023 1.005 - 1.030 CCF CCF HGB UR QL STRIP Negative Negative CCF CCF PH UR STRIP 5.5 <8.5 CCF CCF PROT UR STRIP-MCNC Negative Negative CCF CCF UROBILINOGEN UR QL STRIP 0.2 EU/dL 0.2-1.0 EU/dL CCF CCF NITRITE UR QL STRIP Negative Negative CCF [facility]CF LEUKOCYTE ESTERASE UR QL STRIP Negative Negative CCF CCF WBC #/AREA URNS HPF 0-5 /HPF 0-5 /HPF [facility]CF RBC #/AREA URNS HPF 0-2 /HPF 0-2 /HPF [facility] CCF BACTERIA #/AREA URNS HPF Negative Negative /HPF [facility] CCF EPI CELLS #/AREA URNS HPF None Seen /HPF [facility] CCF HYALINE CASTS #/AREA URNS LPF 0 /LPF 0 /LPF [facility] 01/23/2025 11:4 9 AM EDT 01/23/2025 1:59 PM EDT Narrative CLINISYNC - 01/23/2025 2:48 PM EDT Specimen Type: URINE SPECIMEN Ordering Facility: [facility] Address: [address] [place] [address] Original Ordering Provider: MELINA VYAS us Generic External Data Provider CLINISYNC F inal Result [facility] [address] [place], [place] [address] [address] [place] [address] * [facility] PROT/CREAT UR (01/23/2025 11:49 AM EDT) [facility] PROT UR-MCNC 13 0 - 20 mg/dL CCF CCF CREAT UR-MCNC 103.4 20.0 - 300.0 mg/dL CCF CCF PROT/CREAT UR 0.13 <0.15 mg/mg CCF Comment: Adult Proteinuria Categories: <0.15 mg/mg is considered normal to mildly increased 0.15 - 0.50 mg/mg is considered moderately increased >0.50 mg/mg is considered severely increased KDIGO. (2013). KDIGO 2012 Clinical Practice Guideline for the Evaluation and Management of Chronic Kidney Disease. Official Journal of the International Society of Nephrology, 3(1), 1-150. 01/23/2025 11:4 9 AM EDT 01/23/2025 2:04 PM EDT Narrative CLINISYNC - 01/24/2025 7:12 PM EDT Specimen Type: URINE SPECIMEN Ordering Facility: [facility] Address: [address] [place] [address] Original Ordering Provider: MELINA VYAS us Generic External Data Provider CLINISYNC F inal Result Performing Organization Address [facility] de Phone Number CLINISYNC [facility] [address] [place], [place] [phone] * [facility]CF PROT UR-MCNC (01/23/2025 11:49 AM EDT) [facility] PROT UR-MCNC 13 0 - 20 mg/dL [facility] 01/23/2025 11:4 9 AM EDT 01/23/2025 2:04 PM EDT Narrative CLINISYNC - 01/24/2025 7:12 PM EDT Specimen Type: URINE SPECIMEN Ordering Facility: [facility] Address: [address] [place] [address] Original Ordering Provider: MELINA VYAS Generic External Data Provider CLINISYNC F inal Result Performing Organization Address [facility] de Phone Number CLINISYNC [facility] [address] [phone] * ALL MONOCLONAL PROTEIN,UR (01/23/2025 11:49 AM EDT) [facility] UMPA RESULT No M protein is identified. No M protein is identified. [facility] CCF STAFF REVIEW (UMPA) Reviewed by Mary Cedillo MD [facility] 01/23/2025 11:4 9 AM EDT 01/23/2025 4:46 PM EDT Narrative CLINISYNC - 01/25/2025 7:15 AM EDT Specimen Type: URINE SPECIMEN Ordering Facility: [facility] Address: [address] [place] [address] Original Ordering Provider: MELINA VYAS Generic External Data Provider CLINISYNC F inal Result Performing Organization Address [facility] Co de Phone Number CLINISYNC [facility] [address] [phone] * [facility]CF RHEUMATOID FACT SERPL-ACNC (01/23/2025 11:47 AM EDT) [facility] RHEUMATOID FACT SERPL-ACNC <10 <16 IU/mL [facility] 01/23/2025 11:4 7 AM EDT 01/23/2025 2:04 PM EDT Narrative CLINISYNC - 01/23/2025 10:06 PM EDT Specimen Type: BLOOD SPECIMEN Ordering Facility: [facility] Address: [address] [place] [address] Original Ordering Provider: MELINA VYAS Generic External Data Provider CLINISYNC F inal Result Performing Organization Address [facility] de Phone Number [place] [address] [place] [address] * (ABNORMAL) [facility] PROT SERPL-MCNC (01/23/2025 11:47 AM EDT) Pathologist [facility] PROT SERPL-MCNC 5.9(L) 6.3 - 8.0 g/dL [facility] 01/23/2025 11:4 7 AM EDT 01/23/2025 2:04 PM EDT Narrative CLINISYNC - 01/23/2025 8:20 PM EDT Specimen Type: BLOOD SPECIMEN Ordering Facility: [facility] Address: [address] [place] [address] Original Ordering Provider: MELINA VYAS us Generic External Data Provider CLINISYNC F inal Result Performing Organization Address [facility] de Phone Number [facility] [address] [place] [address] * [facility]CF ESR BLD QN WESTRGRN (01/23/2025 11:47 AM EDT) [facility] ESR BLD QN WESTRGRN 8 0 - 20 mm/hr [facility] 01/23/2025 11:4 7 AM EDT 01/23/2025 1:53 PM EDT Narrative CLINISYNC - 01/23/2025 3:11 PM EDT Specimen Type: BLOOD SPECIMEN Ordering Facility: [facility] Address: [address] [place] [address] Original Ordering Provider: MELINA VYAS Generic External Data Provider MONIKA arcosl Result Performing Organization Address [facility] Co de Phone Number MONIKA CHAVIRA [address] [place], [place] [phone] * [facility]CF TY SS-B AB SER-ACNC (01/23/2025 11:47 AM EDT) [facility] TY SS-B AB SER-ACNC <0.2 <1.0 AI CCF Comment: Anti-SSB (anti-La) antibody is used as an aid in diagnosis of a variety of systemic autoimmune diseases, especially for Sjogren's syndrome and systemic lupus erythematosus. Clinical correlation is required. Test Methodology: Multiplex flow immunoassay. [facility] SSB ANTIBODY QUAL Negative Negative [facility] 01/23/2025 11:4 7 AM EDT 01/23/2025 4:46 PM EDT Narrative CLINISYNC - 01/24/2025 12:14 PM EDT Specimen Type: BLOOD SPECIMEN Ordering Facility: [facility] Address: [address] [place] [address] Original Ordering Provider: MELINA VYAS Generic External Data Provider CLINISYNC Cris inal Result Performing Organization Address [facility] Phone Number MONIKA CHAVIRA [address] [place], [place] [phone] * [facility]CF TY SS-A AB SER-ACNC (01/23/2025 11:47 AM EDT) [facility]CF SSA ANTIBODY QUAL Negative Negative CCF CCF TY SS-A AB SER-ACNC <0.2 <1.0 AI CCF Comment:Test Methodology: Mu ltiplex flow immunoassay. 01/23/2025 11:4 7 AM EDT 01/23/2025 4:46 PM EDT Narrative CLINISYNC - 01/24/2025 12:14 PM EDT Specimen Type: BLOOD SPECIMEN Ordering Facility: [facility] Address: [address] [place] [address] Original Ordering Provider: MELINA VYAS Generic External Data Provider MONTSERRATNC F inal Result Performing Organization Address [facility] de Phone Number MONIKA CHAVIRA [address] [place] [address] * [facility]CF TY SM IGG SER-ACNC (01/23/2025 11:47 AM EDT) SM ANTIBODY QUAL Negative Negative CCF Comment: Anti-Sm (Vera) antibody is used as an aid in diagnosis of systemic lupus erythematosus and its presence is associated with renal disease. A negative result cannot rule out systemic lupus erythematosus. Clinical correlation is required. Test Methodology: Multiplex flow immunoassay. [facility] TY SM IGG SER-ACNC <0.2 <1.0 AI [facility] 01/23/2025 11:4 7 AM EDT 01/23/2025 4:46 PM EDT Narrative [facility] - 01/24/2025 12:14 PM EDT Specimen Type: BLOOD SPECIMEN Ordering Facility: [facility] Address: [address] [place] [address] Original Ordering Provider: MELINA VYAS Generic External Data Provider MONTSERRATNC F inal Result Performing Organization Address [facility] de Phone Number MONIKA CHAVIRA [address] [place], [place] [phone] * [facility]CF TY SCL70 IGG SER IA-ACNC (01/23/2025 11:47 AM EDT) [facility] SCLERODERMA AB QUAL Negative Negative CCF CCF SCLERODERMA IGG AB <0.2 <1.0 AI CCF Comment:Scl-70/Scleroderma a ntibody test is used as an aid in diagnosis of systemic sclerosis especially the diffuse cutaneous form. A negative result cannot rule out systemic sclerosis. The final interpretation should consider clinical picture and other test results such as anti-centromere antibody. Test Methodology: Multiplex flow immunoassay. 01/23/2025 11:4 7 AM EDT 01/23/2025 4:46 PM EDT Narrative CLINISYNC - 01/24/2025 12:14 PM EDT Specimen Type: BLOOD SPECIMEN Ordering Facility: [facility] Address: [address] [place] [address] Original Ordering Provider: MELINA VYAS Generic External Data Provider CLINISYNC F inal Result Performing Organization Address [facility] de Phone Number MONIKA CONNOR [address] [place], [place] [phone] * [facility]CF TY UROLOGIST AB SER-ACNC (01/23/2025 11:47 AM EDT) CCF ANTI-UROLOGIST QUAL Negative Negative CCF CCF TY UROLOGIST AB SER-ACNC <0.2 <1.0 AI [facility] 01/23/2025 11:4 7 AM EDT 01/23/2025 4:46 PM EDT Narrative CLINISYNC - 01/24/2025 12:14 PM EDT Specimen Type: BLOOD SPECIMEN Ordering Facility: [facility] Address: [address] [place] [address] Original Ordering Provider: MELINA VYAS us Generic External Data Provider CLINISYNC F inal Result Performing Organization Address [facility] de Phone Number MONIKA CHAVIRA [address] [place] [address] * [facility]CF TY JO1 AB SER-ACNC (01/23/2025 11:47 AM EDT) CCF VIOLA 1 ANTIBODY QUAL Negative Negative CCF Comment: Anti-VIOLA-1 antibody is used as an aid in diagnosis of polymyositis and dermatomyositis especially with pulmonary involvement. A negative result cannot rule out polymyositis or dermatomyositis. Clinical correlation is required. Test Methodology: Multiplex flow immunoassay. [facility] TY JO1 AB SER-ACNC <0.2 <1.0 AI [facility] 01/23/2025 11:4 7 AM EDT 01/23/2025 4:46 PM EDT Narrative CLINISYNC - 01/24/2025 12:14 PM EDT Specimen Type: BLOOD SPECIMEN Ordering Facility: [facility] Address: [address] [place] [address] Original Ordering Provider: MELINA VYAS us Generic External Data Provider CLINISYNC F inal Result Performing Organization Address [facility] Co de Phone Number [facility] [address] [place] [address] * CCF CRP SERPL-MCNC (01/23/2025 11:47 AM EDT) [facility] CRP SERPL-MCNC <0.3 <0.9 mg/dL [facility] 01/23/2025 11:4 7 AM EDT 01/23/2025 2:04 PM EDT Narrative CLINISYNC - 01/23/2025 10:06 PM EDT Specimen Type: BLOOD SPECIMEN Ordering Facility: [facility] Address: [address] [place] [address] Original Ordering Provider: MELINA VYAS us Generic External Data Provider CLINISYNC F inal Result Performing Organization Address [facility] de Phone Number [facility] [address] [place], [place] [phone] * CCF CK SERPL-CCNC (01/23/2025 11:47 AM EDT) C[facility] CK SERPL-CCNC 76 42 - 196 U/L [facility] 01/23/2025 11:4 7 AM EDT 01/23/2025 2:04 PM EDT Narrative CLINISYNC - 01/23/2025 8:00 PM EDT Specimen Type: BLOOD SPECIMEN Ordering Facility: [facility] Address: [address] [place] [address] Original Ordering Provider: MELINA VYAS us Generic External Data Provider CLINISYNC F inal Result Performing Organization Address [facility] Co de Phone Number MONIKA [facility] [address] [phone] * CCF CHROMATIN AB SERPL-ACNC (01/23/2025 11:47 AM EDT) [facility] CHROMATIN AB QUAL Negative Negative CCF CCF CHROMATIN AB SERPL-ACNC <0.2 <1.0 AI CCF Comment:Test Methodology: Mu ltiplex flow immunoassay. 01/23/2025 11:4 7 AM EDT 01/23/2025 4:46 PM EDT Narrative CLINISYNC - 01/24/2025 12:14 PM EDT Specimen Type: BLOOD SPECIMEN Ordering Facility: [facility] Address: [address] [place] [address] Original Ordering Provider: MELINA VYAS Generic External Data Provider CLINISYNC F inal Result Performing Organization Address [facility] de Phone Number MONIKA [facility] [address] [place], [place] [phone] * CCF CENTROMERE AB SER QL IF (01/23/2025 11:47 AM EDT) [facility]CF CENTROMERE AB QUAL Negative Negative CCF CCF CENTROMERE AB SER-ACNC <0.2 <1.0 AI CCF Comment: Anti-centromere antibody is used as in aid in diagnosis of systemic sclerosis. Clinical correlation is required. Test Methodology: Multiplex flow immunoassay. 01/23/2025 11:4 7 AM EDT 01/23/2025 4:46 PM EDT Narrative CLINISYNC - 01/24/2025 12:14 PM EDT Specimen Type: BLOOD SPECIMEN Ordering Facility: [facility] Address: [address] [place] [address] Original Ordering Provider: MELINA VYAS us Generic External Data Provider CLINISYNC F inal Result Performing Organization Address [facility] Co de Phone Number MONIKA [facility] [address] [phone] * CCF CCP IGG SERPL-ACNC (01/23/2025 11:47 AM EDT) CCF CCP ANTIBODY IGG QUALITATIVE Negative Negative CCF CCF CCP IGG SERPL-ACNC <15 <20 Units [facility] 01/23/2025 11:4 7 AM EDT 01/23/2025 4:46 PM EDT Narrative CLINISYNC - 01/24/2025 1:38 PM EDT Specimen Type: BLOOD SPECIMEN Ordering Facility: [facility] Address: [address] [place] [address] Original Ordering Provider: MELINA VYAS Generic External Data Provider CLINISYNC F inal Result Performing Organization Address [facility] de Phone Number CLIN[facility]YNC [facility] [address] [place] [address] * CCF C4 SERPL-MCNC (01/23/2025 11:47 AM EDT) CCF C4 SERPL-MCNC 21 13 - 46 mg/dL [facility] 01/23/2025 11:4 7 AM EDT 01/23/2025 2:04 PM EDT Narrative CLINISYNC - 01/23/2025 10:17 PM EDT Specimen Type: BLOOD SPECIMEN Ordering Facility: [facility] Address: [address] [place] [address] Original Ordering Provider: MELIAN VYAS us Generic External Data Provider CLINISYNC F inal Result Performing Organization Address [facility] Co de Phone Number CLIN[facility]NC [facility] [address] [place] [address] * CCF C3 SERPL-MCNC (01/23/2025 11:47 AM EDT) CCF C3 SERPL-MCNC 113 86 - 166 mg/dL CCF 01/23/2025 11:4 7 AM EDT 01/23/2025 2:04 PM EDT Narrative CLINISYNC - 01/23/2025 10:17 PM EDT Specimen Type: BLOOD SPECIMEN Ordering Facility: [facility] Address: [address] [place] [address] Original Ordering Provider: MELINA VYAS Generic External Data Provider CLINISYNC F inal Result Performing Organization Address [facility] de Phone Number MONIKA CHAVIRA [address] [address] * (ABNORMAL) [facility] ALP SERPL-CCNC (01/23/2025 11:47 AM EDT) [facility] ALP SERPL-CCNC 137(H) 34 - 123 U/L [facility] 01/23/2025 11:4 7 AM EDT 01/23/2025 2:04 PM EDT Narrative CLINISYNC - 01/23/2025 8:20 PM EDT Specimen Type: BLOOD SPECIMEN Ordering Facility: [facility] Address: [address] [place] [address] Original Ordering Provider: MELINA VYAS Generic External Data Provider CLINISYNC F inal Result Performing Organization Address [facility] de Phone Number MONIKA CHAVIRA [address] [address] * (ABNORMAL) [facility] ALKALINE PHOSPHATASE ISOENZYMES (P) (01/23/2025 11:47 AM EDT) CCF ALK PHOS BONE % 49.5 10.7 - 68.3 % CCF CCF BONE FRACTION 67.8(H) 12.9 - 52.6 U/L CCF CCF ALK PHOS LIVER % 50.5 26.0 - 86.2 % CCF CCF LIVER FRACTION 69.2 16.0 - 69.3 U/L CCF CCF ALK PHOS INTESTINE % 0.0 0.0 - 24.2 % CCF CCF INTESTINE FRACTION 0.0 0.0 - 16.3 U/L [facility] 01/23/2025 11:4 7 AM EDT 01/23/2025 4:46 PM EDT Narrative CLINISYNC - 01/24/2025 11:12 PM EDT Specimen Type: BLOOD SPECIMEN Ordering Facility: [facility] Address: [address] [place] [address] Original Ordering Provider: MELINA VYAS Generic External Data Provider CLINISYNC F inal Result Performing Organization Address [facility] de Phone Number CL[facility]NC [facility] [address] [place] [address] * CCF ALDOLASE SERPL-CCNC (01/23/2025 11:47 AM EDT) [facility] ALDOLASE SERPL-CCNC 3.1 1.5 - 8.1 U/L CC Comment:This test was develo ped, and its performance characteristics determined by the [facility] Department of Pathology and Laboratory Medicine. It has not been cleared or approved by the FDA. The [facility] Department of Pathology and Laboratory Medicine is regulated under CLIA as qualified to perform high- complexity testing. This test is used for clinical purposes. It should not be regarded as investigational or for research. 01/23/2025 11:4 7 AM EDT 01/23/2025 4:46 PM EDT Narrative CLINISYNC - 01/23/2025 6:08 PM EDT Specimen Type: BLOOD SPECIMEN Ordering Facility: [facility] Address: [address] [place] [address] Original Ordering Provider: MELINA VYAS Generic External Data Provider CLINISYNC F inal Result Performing Organization Address [facility] de Phone Number CLINISYNC [facility] [address] [place] [id number] * ALL KAPPA/LAMBDA FREE SERUM (01/23/2025 11:47 AM EDT) [facility] KAPPA LC FREE SER-MCNC 17.8 3.3 - 19.4 mg/L [facility] Comment: Rarely, increased serum free light chains levels may not be detected or accurately quantified due to prozone phenomenon or in high viscosity samples using this immunoturbidimetric assay. Correlation with other laboratory results and clinical findings is recommended. The [place] Free Light Chain was performed using the Binding Site Optilite immunoturbidimetric method. Result obtained with different assay methods or kits cannot be used interchangeably. [facility] LAMBDA LC FREE SERPL-MCNC 13.5 5.7 - 26.3 mg/L [facility] Comment: Rarely, increased serum free light chains [...] methods or kits cannot be used interchangeably. [facility] KAPPA LC/LAMBDA SER 1.32 0.26 - 1.65 [facility] 01/23/2025 11:4 7 AM EDT 01/23/2025 4:46 PM EDT Narrative MONIKA - 01/24/2025 3:15 PM EDT Specimen Type: BLOOD SPECIMEN Ordering Facility: [facility] Address: [address] [place] [address] Original Ordering Provider: MELINA VYAS us Generic External Data Provider MONIKA jamison Result [facility] [address] [facility] [place] [address] * ALL HAVEN BY IFA SCREEN RFLX TITER (01/23/2025 11:47 AM EDT) HAVEN SER QL Negative Negative [facility] Comment: Anti-nuclear antibody test is used as an aid in diagnosis of systemic autoimmune diseases. Where positive and clinically warranted, follow-up using disease- specific testing is recommended. Low positive titers are not uncommon with advanced age, certain chronic infections, and malignancies among others. Test methodology: Indirect fluorescence immunoassay (IFA) using HEp-2 cells. 01/23/2025 11:4 7 AM EDT 01/23/2025 4:45 PM EDT Narrative MONIKA - 01/24/2025 4:06 PM EDT Specimen Type: BLOOD SPECIMEN Ordering Facility: [facility] Address: [address] [place] [address] Original Ordering Provider: MELINA VYAS Generic External Data Provider MONIKA jaimson Result Performing Organization Address [facility] de Phone Number MONIKA CHAVIRA [address] [place] [address] * [facility] IMMUNOFIXATION SCREEN, SERUM (01/23/2025 11:47 AM EDT) Pathologist [facility] MPA RESULT No M protein is identified. No M protein is identified. [facility] STAFF REVIEW (MPA) Reviewed by La Aburto M.D., Ph.D [facility] 01/23/2025 11:4 7 AM EDT 01/23/2025 4:46 PM EDT Narrative CLINISYNC - 01/26/2025 11:33 AM EDT Specimen Type: BLOOD SPECIMEN Ordering Facility: [facility] Address: [address] [place] [address] Original Ordering Provider: MELINA VYAS Generic External Data Provider BOAZROBERTONC Cris jamison Result Performing Organization Address [facility] de Phone Number MONIKA CHAVIRA [address] [place] [address] * [facility] PROTEIN ELECTROPHORESIS SERUM (P) (01/23/2025 11:47 AM EDT) ALBUMIN SERPL ELPH-MCNC 3.69 3.43 - 5.41 g/dL [facility] ALPHA1 GLOB SERPL ELPH-MCNC 0.24 0.18 - 0.43 g/dL [facility] ALPHA2 GLOB SERPL ELPH-MCNC 0.57 0.42 - 0.98 g/dL [facility] B-GLOBULIN SERPL ELPH-MCNC 0.67 0.61 - 1.17 g/dL [facility] GAMMA GLOB SERPL ELPH-MCNC 0.73 0.53 - 1.51 g/dL [facility] PROT PATTERN SERPL ELPH-IMP No definitive M protein is identified on protein electrophores is. No definitive M protein is identified on protein electrophores is. [facility] CCF M-PROTEIN LOCATION [facility] Comment:Not Applicable. [facility] M PROTEIN SERPL ELPH-MCNC 0.00 <=0.00 g/dL [facility]CF SPE STAFF REVIEW Reviewed by Mary Cedillo MD [facility] 01/23/2025 11:4 7 AM EDT 01/23/2025 4:46 PM EDT Narrative MONIKA - 01/25/2025 7:51 AM EDT Specimen Type: BLOOD SPECIMEN Ordering Facility: [facility] Address: [address] [place], [place] [id number] Original Ordering Provider: MELINA VYAS Generic External Data Provider MONIKA jamison Result MONIKA [facility] [address] [facility] [place] [id number] * XR foot 3+ views left (01/05/2025 10:44 AM EDT) Anatomical Region Laterality Modality Lower Extremities, Foot Left Radiogra phic Imaging Narrative 01/05/2025 10:44 AM EDT Imaging Result: Notable irregularity to left 5th toe proximal interphalangeal joint region with suspected old fracture with negative displacement us Sonny Rodriguez DPLudmila IMG XR PROCEDURES Final Res ult * (ABNORMAL) SUPERFICIAL WOUND (HTRX) (01/05/2025 10:10 AM EDT) ACINETOBACTER BAUMANNII (ACUTE WOUND) 0.000 19.961 - 24.689 ppm 01/07/2025 6:31 AM EDT [facility] ACINETOBACTER BAUMANNII (ACUTE WOUND) Not Detected 19.961 - 24.689 ppm 01/07/2025 6:31 AM EDT [facility] BACTEROIDES FRAGILIS, VULGATUS (ACUTE WOUND) 15.641(A) 19.961 - 24.689 ppm 01/07/2025 6:31 AM EDT [facility] BACTEROIDES FRAGILIS, VULGATUS (ACUTE WOUND) Detected(A) 19.961 - 24.689 ppm 01/07/2025 6:31 AM EDT [facility] CITROBACTER FREUNDII (ACUTE WOUND) 0.000 19.961 - 24.689 ppm 01/07/2025 6:31 AM EDT [facility] CITROBACTER FREUNDII (ACUTE WOUND) Not Detected 19.961 - 24.689 ppm 01/07/2025 6:31 AM EDT [facility] CLOSTRIDIUM PERFRINGENS, NOVYI, SEPTICUM (ACUTE WOUND) 21.793(A) 19.961 - 24.689 ppm 01/07/2025 6:31 AM EDT [facility] CLOSTRIDIUM PERFRINGENS, NOVYI, SEPTICUM (ACUTE WOUND) Detected(A) 19.961 - 24.689 ppm 01/07/2025 6:31 AM EDT [facility] ENTEROBACTER CLOACAE COMPLEX, KLEBSIELLA (ENTEROBACTER) AEROGENES ((A) 0.000 19.961 - 24.689 ppm 01/07/2025 6:31 AM EDT [facility] ENTEROBACTER CLOACAE COMPLEX, KLEBSIELLA (ENTEROBACTER) AEROGENES ((A) Not Detected 19.961 - 24.689 ppm 01/07/2025 6:31 AM EDT [facility] ESCHERICHIA COLI (ACUTE WOUND) 21.795(A) 19.961 - 24.689 ppm 01/07/2025 6:31 AM EDT [facility] ESCHERICHIA COLI (ACUTE WOUND) Detected(A) 19.961 - 24.689 ppm 01/07/2025 6:31 AM EDT [facility] KLEBSIELLA PNEUMONIAE, OXYTOCA (ACUTE WOUND) 25.731(A) 19.961 - 24.689 ppm 01/07/2025 6:31 AM EDT [facility] KLEBSIELLA PNEUMONIAE, OXYTOCA (ACUTE WOUND) Detected(A) 19.961 - 24.689 ppm 01/07/2025 6:31 AM EDT [facility] PROTEUS MIRABILIS, VULGARIS (ACUTE WOUND) 0.000 19.961 - 24.689 ppm 01/07/2025 6:31 AM EDT [facility] PROTEUS MIRABILIS, VULGARIS (ACUTE WOUND) Not Detected 19.961 - 24.689 ppm 01/07/2025 6:31 AM EDT [facility] PSEUDOMONAS AERUGINOSA (ACUTE WOUND) 0.000 19.961 - 24.689 ppm 01/07/2025 6:31 AM EDT [facility] PSEUDOMONAS AERUGINOSA (ACUTE WOUND) Not Detected 19.961 - 24.689 ppm 01/07/2025 6:31 AM EDT [facility] SERRATIA MARCESCENS (ACUTE WOUND) 0.000 19.961 - 24.689 ppm 01/07/2025 6:31 AM EDT [facility] SERRATIA MARCESCENS (ACUTE WOUND) Not Detected 19.961 - 24.689 ppm 01/07/2025 6:31 AM EDT [facility] STAPHYLOCOCCUS AUREUS (ACUTE WOUND) 0.000 19.961 - 24.689 ppm 01/07/2025 6:31 AM EDT [facility] STAPHYLOCOCCUS AUREUS (ACUTE WOUND) Not Detected 19.961 - 24.689 ppm 01/07/2025 6:31 AM EDT [facility] STREPTOCOCCUS AGALACTIAE (GROUP B STREP) (ACUTE WOUND) 0.000 19.961 - 24.689 ppm 01/07/2025 6:31 AM EDT [facility] STREPTOCOCCUS AGALACTIAE (GROUP B STREP) (ACUTE WOUND) Not Detected 19.961 - 24.689 ppm 01/07/2025 6:31 AM EDT [facility] STREPTOCOCCUS PYOGENES (GROUP A STREP) (ACUTE WOUND) 0.000 19.961 - 24.689 ppm 01/07/2025 6:31 AM EDT [facility] STREPTOCOCCUS PYOGENES (GROUP A STREP) (ACUTE WOUND) Not Detected 19.961 - 24.689 ppm 01/07/2025 6:31 AM EDT [facility] VIBRIO CHOLERAE, PARAHAEMOLYTICUS, VULNIFICUS (ACUTE WOUND) 0.000 23.000 - 31.296 ppm 01/07/2025 6:31 AM EDT [facility] VIBRIO CHOLERAE, PARAHAEMOLYTICUS, VULNIFICUS (ACUTE WOUND) Not Detected 23.000 - 31.296 ppm 01/07/2025 6:31 AM EDT [facility] ERMB, C; MEFA 23.815(A) 23.000 - 27.611 ppm 01/07/2025 6:31 AM EDT [facility] ERMB, C; MEFA Detected(A) 23.000 - 27.611 ppm 01/07/2025 6:31 AM EDT [facility] SHV, KPC GROUPS 24.000(A) 23.000 - 31.647 ppm 01/07/2025 6:31 AM EDT [facility] SHV, KPC GROUPS Detected(A) 23.000 - 31.647 ppm 01/07/2025 6:31 AM EDT [facility] TET B, TET M 23.721(A) 23.000 - 27.778 ppm 01/07/2025 6:31 AM EDT [facility] TET B, TET M Detected(A) 23.000 - 27.778 ppm 01/07/2025 6:31 AM EDT [facility] Winsome, VanB 27.758(A) 23.000 - 32.027 ppm 01/07/2025 6:31 AM EDT [facility] Winsome, VanB Detected(A) 23.000 - 32.027 ppm 01/07/2025 6:31 AM EDT [facility] ENTEROCOCCUS FAECALIS, FAECIUM 30.754(A) 19.961 - 24.689 ppm 01/07/2025 6:31 AM EDT [facility] ENTEROCOCCUS FAECALIS, FAECIUM Detected(A) 19.961 - 24.689 ppm 01/07/2025 6:31 AM EDT [facility] Wound 01/05/2025 10:1 0 AM EDT 01/07/2025 1:24 AM EDT us Yanci Aguilar PA LAB BLOOD ORDERABLES Final Res ult [employer] [facility] [facility] [place] [address] * POCT Glycated hemoglobin, total (10/06/2024 3:56 PM EST) Hemoglobin A1C 5.0 Blood 10/06/2024 3:56 PM EST Belem Feldman TIRE GROOVER POINT OF CARE TEST ENTER/BI T ORDERABLES Final Result * COLONOSCOPY DIAGNOSTIC (10/08/2023 2:44 PM EST) Anatomical Region Laterality Modality Radiographic Edwige ging Unknown Practice A IMG XR PROCEDURES Final Resul t from Last 3 Months or Most Recently Relevant to Health Maintenance Insurance [address] [place] [address] BCBS Care Teams Vertical Mill Operator Relationship Specialty Start Date End Date Shlomo Hu MD [address] [facility] [address] [place] [address] PCP - General Internal Medicine 02/15/23 Jess Marsh LPN [address] [address] 12/06/24 Esthela Tesfaye, MATHS TUTOR [address] [place] [address] Tree Chipper Family Medicine 02/03/25
--- OUTSIDE RECORDS SUMMARY | 2025-03-28 09:20 | XMS_ITS | Encounter Summary ---
Author Organization [facility] Address [address] [facility] [place] [address] Care Team Providers Care Boring Machine Operator Vertical Name Role Phone Shlomo Hu MD Primary Care Provider Jess Marsh LPN Unavailable Esthela Tesfaye BOAT AND PLANT UTILITY SUPERVISOR Unavailable [phone] Encounter Details Date Type Department Care Team (Late st Contact Info) Description 03/16/2025 Bamboo flowsheet [facility] [address] [place] [place] [address] Angelina Polk, POST ANESTHESIA NURSE [address] [place] [address] Social History Tobacco Use Types Packs/Day Years [...] do you attend chur or bahai services? 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 Not on file Not on file Not on file documented as of this encounter Plan of Treatment Upcoming Encounters Date Type Department Care Team (Late st Contact Info) Description 04/12/2025 9:50 AM EDT Office Visit [facility] [address] [place] [address] Tanya Lozano MD [address] [place] [address] 04/20/2025 3:00 PM EDT Office Visit [facility] [address] [place] [address] Sonny Rodriguez, DPM [address] [facility] [address] [place] [address] 05/04/2025 2:50 PM EDT Office Visit [facility] [address] [place] [address] Sonny Rodriguez DPM [address] [facility] [address] [place] [address] documented as of this encounter Visit Diagnoses Not on filedocumented in this encounter Additional Health Concerns Assessment Noted Time PHQ-9 Depression Total Score: 18 024 9:42 AM EDT documented as of this encounter Care Teams Boring Machine Operator Vertical Relationship Specialty Start Date End Date Shlomo Hu MD [address] [place] [place] [address] PCP - General Internal Medicine 02/15/23 Jess Marsh LPN [address] [place] [address] 12/06/24 Esthela Tesfaye, KIRA [address] [place] [address] Fireproof Door Maker Family Medicine 02/03/25 documented as of this encounter
--- OUTSIDE RECORDS SUMMARY | 2025-03-28 09:20 | XMS_ITS | Encounter Summary ---
Author Organization [facility] Address [address] [place] [address] Care Team Providers Care Career Technical Education Instructor Name Role Phone Jacob Sharp Unavailable Rasheeda Newton RD Unavailable [phone] Unavailable [phone] Fritz HENDERSON MD, Shlomo Momin Primary Care Provider [phone] Yuan Miller MD, PhD Unavailable [phone] Source Comments In the event this information is protected by the Federal Confidentiality of Alcohol and Drug AbusePatient Records regulations: The Federal rules restrict any use of the information to criminally investigate or prosecute any alcohol or drug abuse patient.[facility] Encounter Details Date Type Department Care Team (Late st Contact Info) Description 03/30/2024 Get Medical Advice Rheumatology [address] [id number] [place] [address] [place] [address] Additional iasues Social History Tobacco Use Types Packs/Day Years [...] Data from: https://www.neighborhoodatlas.medicine.[facility].edu/. Last address used for calculation [address] [...] AM EDT Office Visit General Surgery [address] [place] [address] Michael Mora PA-C [address] [place] [address] follow up- add on ok'd by Michael 04/07/2025 1:00 PM EDT [facility] [address] [place] [phone] Agatha Kim PSYD [address] [place] [address] 04/19/2025 11:00 AM EDT [facility] Neurological [facility] [address] [place] [address] Joann Loera APRN.PIECE MEAT TRIMMER [address] [place] [phone] Cognitive movement issues 04/21/2025 8:30 AM EDT [facility] Nutrition Therapy [address] [place] [phone] Tiffany Banks, RD [address] [place] [id number] f/u TF forula tolerance and hydration 05/29/2025 9:00 AM EDT [facility] Gastroenterology [address] [place] [phone] Johanna Martinez MD [facility] [address] [place], [place] [phone] 3 month follow up 06/28/2025 10:00 AM EDT [facility] Neurology Pain [address] [place] [phone] [place] [address] [place] [phone] Follow up for pain documented as of [...] documented as of this encounter Care Teams Career Technical Education Instructor Relationship Specialty Start Date End Date Shlomo Hu II, MD [address] [place] [address] [place] [address] PCP - General Internal Medicine 10/06/23 Jacob Sharp [address] [place] [address] Referring 04/30/[address] [place] [id number] Registered Dietitian Nutrition 06/24/[address] [place] [address] Registered Dietitian Nutrition 08/27/23 Yuan Miller MD, PhD [address] [place] [address] Surgeon General Surgery 02/03/24 documented as of this encounter
--- OUTSIDE RECORDS SUMMARY | 2025-03-28 09:20 | XMS_ITS | Encounter Summary ---
Author Organization [facility] Address [address] [place] [address] Care Team Providers Care Section Hand Name Role Phone Jacob Sharp Unavailable Rasheeda Newton RD Unavailable [phone] Unavailable [phone] Fritz HENDERSON MD, Shlomo Momin Primary Care Provider [phone] Yuan Miller MD, PhD Unavailable [phone] Source Comments In the event this information is protected by the Federal Confidentiality of Alcohol and Drug AbusePatient Records regulations: The Federal rules restrict any use of the information to criminally investigate or prosecute any alcohol or drug abuse patient.[facility] Encounter Details Date Type Department Care Team (Late st Contact Info) Description 04/12/2024 Get Medical Advice General Surgery [address] [place] [address] Michael Mora PA-C [address] [place] [address] In patient Social History Tobacco Use Types Packs/Day Years [...] from: https://www.neighborhoodatlas.medicine.[facility].edu/. Last address used for calculation [address] [...] AM EDT Office Visit General Surgery [address] [place] [address] Michael Mora PA-C [address] [place] [address] follow up- add on ok'd by Michael 04/07/2025 1:00 PM EDT [facility] [address] [place] [phone] Agatha Kim PSYD [address] [place] [address] 04/19/2025 11:00 AM EDT [facility] Neurological [facility] [address] [place] [address] Joann Loera APRN.INCUBATOR MACHINE OPERATOR [address] [place] [phone] Cognitive movement issues 04/21/2025 8:30 AM EDT [facility] Nutrition Therapy [address] [place] [phone] Tiffany Banks, RD [address] [place] [phone] f/u TF forula tolerance and hydration 05/29/2025 9:00 AM EDT [facility] Gastroenterology [address] [place] [phone] Johanna Martinez MD [facility] [address] [place], [place] [phone] 3 month follow up 06/28/2025 10:00 AM EDT [facility] Neurology Pain [address] [place] [phone] [place] [address] [place] [phone] Follow up for pain documented as of [...] documented as of this encounter Care Teams Section Hand Relationship Specialty Start Date End Date Shlomo Hu II, MD [address] [place] [address] [place] [address] PCP - General Internal Medicine 10/06/23 Jacob Sharp [address] [place] [address] Referring 04/30/[address] [place] [phone] Registered Dietitian Nutrition 06/24/[address] [place] [address] Registered Dietitian Nutrition 08/27/23 Yuan Miller MD, PhD [address] [place] [address] Surgeon General Surgery 02/03/24 documented as of this encounter
--- OUTSIDE RECORDS SUMMARY | 2025-03-28 09:21 | XMS_ITS | Encounter Summary ---
Author Organization [facility] Address [address] [place] [address] Care Team Providers Care Youth Ministry Director Name Role Phone Jacob Sharp Unavailable Rasheeda Newton RD Unavailable [phone] Unavailable [phone] Fritz HENDERSON MD, Shlomo Momin Primary Care Provider [phone] Yuan Miller MD, PhD Unavailable [phone] Source Comments In the event this information is protected by the Federal Confidentiality of Alcohol and Drug AbusePatient Records regulations: The Federal rules restrict any use of the information to criminally investigate or prosecute any alcohol or drug abuse patient.[facility] Encounter Details Date Type Department Care Team (Late st Contact Info) Description 03/15/2024 Get Medical Advice General Surgery [address] [place] [address] Yuan Miller MD, PhD [address] [place] [address] Pain meds Social History Tobacco Use Types Packs/Day Years [...] is lower risk 4 03/05/2023 Data from: https://www.neighborhoodatlas.medicine.[facility].edu/. Last address used for calculation [address] [...] AM EDT Office Visit General Surgery [address] [place] [phone] Michael Mora PA-C [address] [place] [address] follow up- add on ok'd by Michael 04/07/2025 1:00 PM EDT [facility] [address] [place] [phone] Agatha Kim PSYD [address] [place] [address] 04/19/2025 11:00 AM EDT [facility] Neurological [facility] [address] [place] [address] Joann Loera APRN.X RAY EXAMINER OF AIRCRAFT [address] [place] [phone] Cognitive movement issues 04/21/2025 8:30 AM EDT [facility] Nutrition Therapy [address] [place] [phone] Tiffany Banks, RD [address] [place] [phone] f/u TF forula tolerance and hydration 05/29/2025 9:00 AM EDT [facility] Gastroenterology [address] [place] [phone] Johanna Martinez MD [facility] [address] [place], [place] [phone] 3 month follow up 06/28/2025 10:00 AM T [facility] Neurology Pain [address] [place] [phone] [place] [address] [place] [phone] Follow up for pain documented as of [...] documented as of this encounter Care Teams Youth Ministry Director Relationship Specialty Start Date End Date Shlomo Hu II, MD [address] [place] [place] [address] PCP - General Internal Medicine 10/06/23 Jacob Sharp [address] [place] [address] Referring 04/30/[address] [place] [phone] Registered Dietitian Nutrition 06/24/[address] [place] [address] Registered Dietitian Nutrition 08/27/23 Yuan Miller MD, PhD [address] [place] [address] Surgeon General Surgery 02/03/24 documented as of this encounter
[2025-03-28 09:24] LABS: Hematocrit 37.9 % (36.0-48.0); Hemoglobin 12.5 g/dL (12.0-16.0); Immature Granulocytes Abs Auto 0.04 10^3/uL (0.00-0.03); Immature Granulocytes Pct Auto 0.7 % (0.0-0.5); Lymphocytes Absolute Auto 1.7 10^3/uL (1.2-3.8); Mean Corpuscular HGB Conc 33.0 g/dL (29.9-35.2); Mean Corpuscular Hemoglobin 28.5 pg (26.7-34.0); Mean Corpuscular Volume 86.5 fL (81.0-99.0); Platelet Count 329 10^3/uL (150-450); Red Blood Count 4.38 10^6/uL (4.20-5.40); White Blood Count 5.7 10^3/uL (4.0-11.0)
[2025-03-28 10:39] LABS: Anion Gap 14.5; Blood Urea Nitrogen 9.0 mg/dL (7.0-18.0); Calcium 8.9 mg/dL (8.5-10.1); Carbon Dioxide 26.8 mmol/L (21.0-32.0); Chloride 107 mmol/L (98-107); Estimated GFR (African America >60 (>=60 mL/min/1.73m^2); Estimated GFR (Non-African Ame >60 (>=60 mL/min/1.73m^2); Glucose 93 mg/dL (74-106); Potassium 3.3 mmol/L (3.5-5.1); Sodium 145 mmol/L (136-145)
[2025-03-28 14:14] LABS: C. Difficile PCR NEGATIVE
== END 2025-03-28 09:04 | disposition home or self-care (01) ==
LOC: LAB 09:05
PROVIDERS: PCP Internal Medicine; Visit Provider Physician Assistant
DX: R19.5 Other fecal abnormalities (principal)
CPT/HCPCS: 36415; 80048; 85025; 87045; 87046; 87427; 87493

== ENCOUNTER 2025-04-09 11:43 | Outpatient (REF) | payer BC, SELFPAY ==
--- OUTSIDE RECORDS SUMMARY | 2006-12-23 11:51 | XMS_ITS | Encounter Summary ---
Author Organization [facility] Address [address] [place] [address] Care Team Providers Care Grill Attendant Name Role Phone Unavailable Primary Care Provider Unavailabl e Source Comments In the event this information is protected by the Federal Confidentiality of Alcohol and Drug AbusePatient Records regulations: The Federal rules restrict any use of the information to criminally investigate or prosecute any alcohol or drug abuse patient.[facility] Encounter Details Date Type Department Care Team (Late st Contact Info) Description 12/23/2006 11:51 AM EDT Hospital Encounter [facility] Outpatient Services [address] [place] [address] [place] [address] [place] [address] MATERNITY Social History Tobacco Use Types Packs/Day Years Used Date Smoking Tobacco: Never Smokeless Tobacco: Never Alcohol Use Standard Drinks/Week Comments Not Currently 0 (1 standard drink = 0.6 oz pur e alcohol) [facility] Utilities Answer Date Recorded In the past 12 months has th e electric, gas, oil, or water company threatened to shut off services in your home? No 04/03/2025 AUDIT-C Answer Date Recorded Q1: How often do you have a drink containing alc ohol? Monthly or less 09/27/2019 Q2: How many drinks containi ng alcohol do you have on a typical day when you are drinking? 1 or 2 09/27/2019 Frequency of Binge Drinking Not on file 09/14 Overall Financial Resource Strain (CARDIA) Answe r Date Recorded How hard is it for you to pa y for the very basics like food, housing, medical care, and heating? Not hard at all 08/10/2023 PHQ-2 Answer Date Recorded PHQ-2 score 4 02/27/2025 Hunger Vital Sign Answer Date Recorded Within the past 12 months, y ou worried that your food would run out before you got the money to buy more. Never true 04/03/20 25 Within the past 12 months, t he food you bought just didn't last and you didn't have money to get more. Never true 04/03/2025 PRAPARE - Transportation Answer Date Re corded In the past 12 months, has l ack of transportation kept you from medical appointments or from getting medications? No 03/15 In the past 12 months, has l ack of transportation kept you from meetings, work, or from getting things needed for daily living? No 04/03/2025 Housing Stability Vital Sign Answer Luis Miguel e Recorded In the last 12 months, was t here a time when you were not able to pay the mortgage or rent on time? No 02/16/2024 In the last 12 months, how many places have you lived? 1 02/16/2024 In the last 12 months, was t here a time when you did not have a steady place to sleep or slept in a fpc (including now)? No 02/16/2024 Housing Stability Vital Sign Answer Luis Miguel e Recorded In the last 12 months, was t here a time when you were not able to pay the mortgage or rent on time? No 04/03/2025 In the past 12 months, how m any times have you moved where you were living? 0 04/03/2025 At any time in the past 12 m [facility], were you homeless or living in a fpc (including now)? No 04/03/2025 Area Deprivation Index Answer Date Reagan rded National Score (1-100), lower number is lower ri sk 63 03/05/2023 State Score (1-10), lower number is lower risk 4 03/05/2023 Data from: https://www.neighborhoodatlas.[facility].edu/. 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 No / Unsure 08/14/2022 3:09 PM EST documented as of this encounter Functional Status documented as of this encounter Plan of Treatment Upcoming Encounters Date Type Department Care Team (Latest Contact Info) Description 04/10/2025 10:00 AM EDT Hospital Encounter Admitting [address] [phone] Yuan Miller MD, PhD [address] [phone] Nausea and vomiting, unspecified vomiting type [R11.2], H/O bariatric surgery [Z98.84], Jejunostomy tube fell out [T85.528A] 04/10/2025 10:00 AM EDT - 04/10/2025 12:00 PM EDT Surgery Admitting [address] [phone] Yuan Miller MD, PhD [address] [id number] LAPAROSCOPIC JEJUNOSTOMY 04/19/2025 11:00 AM EDT [facility] [address] [phone] Joann Loera APRN.SERVICE CENTER TECHNICIAN [address] [place] [address] Cognitive movement issues 04/21/2025 8:30 AM EDT [facility] Nutrition Therapy [address] [address] Tiffany Banks, RD [address] [place] [address] f/u TF forula tolerance and hydration 05/18/2025 9:00 AM EDT [facility] General Surgery [address] [phone] Michael Mora PA-C [address] [place] [address] f/u with michael mora in 2 wks 05/29/2025 9:00 AM EDT [facility] Gastroenterology [address] [address] Johanna Martinez MD [facility] [address] [phone] 3 month follow up 06/28/2025 10:00 AM EDT [facility] Neurology Pain [address] [place] [address] [place] [address] [place] [address] Follow up for pain Scheduled Procedures Name Priority Associated Diagnoses Date/Ti me LAPAROSCOPIC JEJUNOSTOMY Nausea and vomiting, unspecified vomiting type H/O bariatric surgery Jejunostomy tube fell out 04/10/2025 10:00 AM EDT documented as of this encounter Visit Diagnoses Not on filedocumented in this encounter Additional Health Concerns Infection Onset Date Last Indicated Resolved Time COVID-19 Rule-Out 06/16/2022 06/16/2022 06/16/2022 12:29 PM EDT COVID-19 Rule-Out 06/26/2022 06/26/2022 06/26/2022 1:04 AM EDT COVID-19 Rule-Out 07/29/2022 07/29/2022 07/29/2022 11:11 PM EST COVID-19 Rule-Out 08/12/2022 08/12/2022 08/12/2022 2:12 AM EST C. difficile 09/12/2022 09/12/2022 04/09/2023 8:32 AM EDT COVID-19 Rule-Out 09/15/2022 09/15/2022 09/15/2022 10:58 PM EST COVID-19 Rule-Out 09/16/2022 09/16/2022 09/18/2022 8:54 AM EST COVID-19 Rule-Out 09/28/2022 09/28/2022 09/28/2022 2:17 PM EST COVID-19 Rule-Out 01/04/2024 01/04/2024 01/04/2024 5:37 PM EDT Respiratory Rule-Out 01/04/2024 01/04/2024 024 5:37 PM EDT COVID-19 Rule-Out 04/12/2024 04/12/2024 04/12/2024 3:56 PM EDT COVID-19 Confirmed Comment:Anticipate 10 day isolation 04/12/2024 04/18/202404/14 8:51 PM EDT COVID-19 Rule-Out 04/18/2024 04/18/2024 04/18/2024 2:28 PM EDT COVID-19 Rule-Out 07/29/2024 07/29/2024 07/29/2024 7:20 PM EST documented as of this encounter
--- OUTSIDE RECORDS SUMMARY | 2007-01-11 05:56 | XMS_ITS | Encounter Summary ---
Author Organization [facility] Address [address] [place] [address] Care Team Providers Care Automation Driver Name Role Phone Unavailable Primary Care Provider Unavailabl e Source Comments In the event this information is protected by the Federal Confidentiality of Alcohol and Drug AbusePatient Records regulations: The Federal rules restrict any use of the information to criminally investigate or prosecute any alcohol or drug abuse patient.[facility] Encounter Details Date Type Department Care Team (Latest Contact Info) Description 01/11/2007 5:56 AM EDT Hospital Encounter [facility] [address] [place] [address] [place] [address] [place] [address] MATERNITY DIFFICULTY URINATING Social History Tobacco Use Types Packs/Day Years Used Date Smoking Tobacco: Never Smokeless Tobacco: Never Alcohol Use Standard Drinks/Week Comments Not Currently 0 (1 standard drink = 0.6 oz pur e alcohol) [facility] Utilities Answer Date Recorded In the past [...] place to sleep or slept in a [place] (including now)? No 02/16/2024 Housing Stability Vital [...] any time in the past 12 m [facility], were you homeless or living in a [place] health [place] facility (including now)? No 04/03/2025 Area Deprivation Index Answer Date Reagan rded National Score (1-100), lower number is lower ri sk 63 03/05/2023 State Score (1-10), lower number is lower risk 4 03/05/2023 Data from: https://www.neighborhoodatlas.[facility].edu/. Last address used for calculation [address] [address] 03/05/2023 Comments No [...] file Travel History Travel Start Travel End [place] 03/18/2025 03/26/2025 COVID-19 Exposure Response Date Recorded [...] 10:00 AM EDT Hospital Encounter Admitting [address] [id number] Yuan Miller MD, PhD [address] [id number] Nausea and vomiting, unspecified vomiting type [R11.2], H/O bariatric surgery [Z98.84], Jejunostomy tube fell out [T85.528A] 04/10/2025 10:00 AM EDT - 04/10/2025 12:00 PM EDT Surgery Admitting [address] [id number] Yuan Miller MD, PhD [address] [place], [place] [id number] LAPAROSCOPIC JEJUNOSTOMY 04/19/2025 11:00 AM EDT [facility] [address] [place] [address] Joann Loera APRN.MUSHROOM [employer]TER [employer]ADER [address] [place] [address] Cognitive movement issues 04/21/2025 8:30 AM EDT [facility] Nutrition Therapy [address] [address] Tiffany Banks, RD [address] [place] [address] f/u TF forula tolerance and hydration 05/18/2025 9:00 AM EDT [facility] General Surgery [address] [id number] Michael Mora PA-C [address] [place] [address] f/u with michael mora in 2 wks 05/29/2025 9:00 AM EDT [facility] Gastroenterology [address] [address] Johanna Martinez MD [facility] [address] [id number] 3 month follow up 06/28/2025 10:00 AM EDT [facility] Neurology Pain [address] [id number] [place] [address] [place] [address] Follow up for pain Scheduled Procedures Name Priority Associated Diagnoses Date/Ti me LAPAROSCOPIC JEJUNOSTOMY Nausea and vomiting, unspecified vomiting type H/O bariatric surgery Jejunostomy tube fell out 04/10/2025 10:00 AM EDT documented as of this encounter Procedures Procedure [...] diagnose a patient with chronic kidney disease. [facility] 01/11/2007 8:01 AM EDT us Juan Negro MD LABORATORY Final Resu lt [facility] [address] [place] [address] * (ABNORMAL) COMP METABOLIC PANEL (01/11/2007 8:01 AM EDT) Pathologist [facility] Calcium 9.0 8.4 - 10.1 mg/dL [facility] Glucose 100 70 - 105 mg/dL [facility] BUN 7 7 - 26 mg/dL [facility] Creatinine 0.5(L) 0.6 - 1.0 mg/dL [facility] Sodium 139 136 - 146 mmol/L [facility] Potassium 3.9 3.5 - 5.0 mmol/L [facility] Chloride 107(H) 98 - 106 mmol/L [facility] CO2 19(L) 22 - 29 mmol/L [facility] Anion Gap 13 5 - 20 mmol/L [facility] Protein, Total 5.7(L) 6.4 - 8.2 g/dL [facility] Albumin 2.7(L) 3.5 - 5.0 g/dL [facility] Bilirubin, Total 0.3 0.0 - 1.0 mg/dL [facility] Alkaline Phosphatase 103 35 - 174 U/L [facility] AST 14 Called to give result but told report will be viewed in the system by: BRAYAN AT 8:20AM.4/3 [place] [id number].(L) 15 - 47 U/L [facility] ALT 32 30 - 65 U/L [facility] 01/11/2007 8:01 AM EDT Juan Negro MD LABORATORY Edited Performing Organization Address [facility] Co de Phone Number [facility] [address] [place] [address] * (ABNORMAL) GFR ESTIMATED (01/11/2007 6:51 AM EDT) Pathologist [facility] Estimated GFR >60 eGFR Units of measure: mL/min/1.73 meters squared If the patient is , multiply the eGFR reported by 1.21. eGFR is derived from the 4 variable MDRD equation for glomerular filtration rate (GFR) based on a stable serum creatinine, gender, and age. According to KDOQI guidelines, an eGFR <60 mL/min/1.73m2 is sufficient to diagnose a patient with chronic kidney disease. [facility] 01/11/2007 6:51 AM EDT Juan Negro MD LABORATORY Final Resu lt Performing Organization Address [facility] de Phone Number [facility] [address] [place] [address] * (ABNORMAL) BASIC METABOLIC PNL (01/11/2007 6:51 AM EDT) Pathologist [facility] Glucose 102 Called to give result but told report will be viewed in the system by: JENNIFER AT 725 [place] [id number] 70 - 105 mg/dL [facility] BUN 7 7 - 26 mg/dL [facility] Creatinine 0.5(L) 0.6 - 1.0 mg/dL [facility] Sodium 139 136 - 146 mmol/L [facility] Potassium 3.9 3.5 - 5.0 mmol/L [facility] Chloride 105 98 - 106 mmol/L [facility] CO2 20(L) 22 - 29 mmol/L [facility] Anion Gap 14 5 - 20 mmol/L [facility] Calcium 9.0 8.4 - 10.1 mg/dL [facility] 01/11/2007 6:51 AM EDT Juan Negro MD LABORATORY Final Resu lt Performing Organization Address [facility] de Phone Number [facility] [address] [place] [address] * URINE CULTURE (01/11/2007 6:42 AM EDT) Exam Type Urine Culture [facility] Growth Indicator Y [facility] Specimen Description Urine [facility] Culture <11914 colony forming units per ml. Insignificant growth. Consider possible urethral or collection contamination. [facility] Culture Report FINAL [id number] [facility] 01/11/2007 6:42 AM EDT Juan Negro MD MICROBIOLOGY Edited Performing Organization Address [facility] de Phone Number [facility] [address] [place] [address] documented in this encounter Visit Diagnoses Not [...] 5:37 PM EDT Respiratory Rule-Out 01/04/2024 01/04/2024 5:37 PM EDT COVID-19 Rule-Out 04/12/2024 04/12/2024 04/12/2024 3:56 PM EDT COVID-19 Confirmed Comment:Anticipate 10 day isolation 04/12/2024 04/18/202404/14 8:51 PM EDT COVID-19 Rule-Out 04/18/2024 04/18/2024 04/18/2024 2:28 PM EDT COVID-19 Rule-Out 07/29/2024 07/29/2024 07/29/2024 7:20 PM EST documented as of this encounter
--- OUTSIDE RECORDS SUMMARY | 2024-10-28 11:15 | XMS_ITS | Continuity of Care Document ---
Author Organization [facility] Address [address] [place] [address] Phone Care Team Providers Care Software Quality Assurance Engineer Name Role Phone Liam Palmer Jr, DO Unavailable Unavailabl e Procedures Procedure Date Cosmetic Botulinum toxin a per unit Advance Directives Directive Yes / No Effective Date File Name No Information Encounters Encounter Description Practice Location Reason(s) For Visit Diagnoses Date Provider Providers Copied on Encounter [facility], [address] [place], [address], [place] tel:[phone] [facility] Cosmetic Botox (chief complaint) Encounter for cosmetic surgery Estela Wheeler. [address] [place] [address], [id number], . tel:[phone] Referring Provider: Liam Dumont, [address] [place] [address], [id number]. tel:[phone] Family History Family Member Type Diagnosis Age At Onset No Information Payers Payer name Insurance type Covered republican ID Efra becker(s) [facility] - [id number] [employer] 11 Social History Type Description Quantity Date Captured Comments Alcohol Use Details Unknown Caffeine Use Details Unknown Tobacco Use Status No Information Smoking Status Former smoker Non-Smoking Tobacco Use Details : No Details Available : No Details Available Sex Female Chief Complaint And Reason For Visit From encounter dated '10/28/2024 15:15'. Cosmetic Botox (chief complaint). Description: here for facial wrinkles in Forehead area Patient denies presence of: discharge, irritation, itching and pain. Reason For Referral Reason For Referral No Information History Of Present Illness Encounter Date Complaint History Of Prese nt Illness Cosmetic Botox here for facial wrinkles in Forehead area Patient denies presence of: discharge, irritation, itching and pain. Functional Status Date Functional Assessmen t No Information Instructions Date Instruction Additional Infor summer Impression/Plan Assessments Type Assessment Date assessment Encounter for cosmetic surgery F Patient Care Teams Name Effective Dates (start - stop) Status Members No Information
--- OUTSIDE RECORDS SUMMARY | 2025-03-27 14:30 | XMS_ITS | Encounter Summary ---
Author Organization [facility] Address [address] [facility] [place] [address] Care Team Providers Care Bed And Breakfast Innkeeper Name Role Phone Shlomo Hu MD Primary Care Provider [phone] Jess Marsh LPN Unavailable Esthela Tesfaye BOX LINING MACHINE OPERATOR Unavailable [phone] Reason for Referral * Rehabilitation - Outpatient (Routine) - Authorized Specialty Diagnoses / Procedures Referred By Brenda nash Referred To Contact Physical Therapy Diagnoses Left arm swelling Lymphedema Procedures [place] OFFICE/OUTPATIENT [facility] MDM 60 MINUTES Yanci Aguilar PA [address] [facility] [address] [place] [address] Phone: tel: fax: [facility] [address] [place] [address] fax: Referral ID Status Reason Start Date Expiration Date Visits Requested Visits Authorized [id number] Authorized Specialty Services Required 03/28/2025 09/24/2025 1 1 Scheduling Instructions Please help pt get set up with Lymphedema Clinic Reason for Visit * Reason Comments Nausea Encounter Details Date Type Department Care Team (Late st Contact Info) Description 03/27/2025 2:30 PM EDT Office Visit KENY Elamncinocencia [address] [facility] [address] [place] [address] Yanci Aguilar PA [address] [facility] [address] [place] [address] Change in stool (Primary Dx); Watery stools; Left arm swelling; Nausea and vomiting, unspecified vomiting type; Lymphedema; Feeding difficulties; History of Clostridium difficile colitis Social History Tobacco Use Types Packs/Day Years [...] 04/18/2024 How often do you attend chur ch or worship services? Never 04/18/2024 Do you belong to any clubs o r organizations such as buddhism groups, unions, fraternal or athletic groups, or [...] Date Recorded Patient Health Questionnaire-2 Score 2 03/27/2025 [facility] - Occupational Stress [...] 04/18/2024 Housing Stability Vital Sign Answer Luis Miugel e Recorded In the last 12 months, [...] place to sleep or slept in a prison (including now)? No 03/01/2023 Housing Stability Vital [...] any time in the past 12 m onths, were you homeless or living in a prison (including now)? 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 Not on file Not on file documented as of this encounter Last Filed Vital Signs Vital Sign Reading Time Taken Comments Blood Pressure 124/82 03/27/2025 2:42 PM EDT Pulse 86 03/27/2025 2:42 PM EDT Temperature - - Respiratory Rate 17 03/27/2025 2:42 PM EDT Oxygen Saturation 97% 03/27/2025 2:42 PM EDT Inhaled Oxygen Concentration - - Weight 93 kg (205 lb) 03/27/2025 2:42 PM EDT Height 175.3 cm (5' 9 ) 03/27/2025 2:42 PM EDT Body Mass Index 30.27 03/27/2025 2:42 PM EDT documented in this encounter Functional Status * Over the past 2 weeks, how often have you been bothered by any of the following problems? Question Answer Date of Assessment Author Little interest or pleasure in doing things Several days 03/27/2025 2:36 PM EDT PARTHA WOLFE Feeling down, depressed, or hopeless Several days 03/14 2:36 PM EDT PARTHA WOLFE Patient Health Questionnaire-2 Score 2 03/14 2:36 PM EDT PARTHA WOLFE * If you checked off any problems on this questionnaire so far, Question Answer Date of Assessment Author How difficult have these problems made it for you to do your work, take care of things at home, or get along with other people? Somewhat difficult 03/27/2025 2:36 PM EDT PARTHA WOLFE documented as of this encounter Progress Notes * CHARLOTTE Condon - 03/27/2025 2:30 PM EDT Images from the original note were not included. Subjective Patient ID: Melina Taveras is a 49 y.o. female who presents for Nausea. -Melina presents today for a possible infection around her feeding tube. She said her feeding tube was leaking and she states it fell out some and she had the surgeon send her a new one, but they can't it to go into the whole. She also thinks she has food poisoning. She has had vomiting and nausea. She has tried nothing but fluids, since . Having green drainage from the stoma which is new for her. States it is very foul smelling. States it is oozing. -C/o left arm swelling that becomes painful. Does have a compression garment that she wears in the morning and every night. States both lower legs swell from the knee down. -States has some SOB and some pain when she breaths at times. Over the past 2 weeks, how often [...] Prior to Visit Medication Sig Dispense Refill [] amoxicillin-clavulanate (Augmentin) 875-125 MG tablet Take 1 tablet (875 mg) by mouth in the morning and 1 tablet (875 mg) before bedtime. Do all this for 10 days. 20 tablet 0 B Complex Vitamins (vitamin B [...] 27 tablet3 ergocalciferol (Vitamin D-2) 1.25 MG (91972 UT) capsule Take 1 capsule (1.25 mg) by mouth 1 (one) time per week 12 capsule 1 esomeprazole (NexIUM) [address] capsule Take 40 mg by mouth in the morning and 40 mg in the evening. estradiol (Estrace) 0.1 MG/GM vaginal cream Apply to vagina nightly for 2 week then every Thursday/Thursday/Thursday. 42.5 g 3 estradiol (Estrace) 0.5 MG tablet Take 0.5 mg by mouth in the morning. Fructooligosaccharides (FOS PO) gabapentin (Neurontin) 300 MG capsule Take 1 capsule (300 mg) by mouth in the morning and 1 capsule(300 mg) in the evening and 1 capsule (300 mg) before bedtime. gabapentin (Neurontin) 600 MG tablet Take 2 tablets (1,200 mg) by mouth in the morning and 2 tablets (1,200 mg) in the evening and 2 tablets (1,200 mg) before bedtime. 180 tablet 2 levothyroxine (Synthroid) 50 MCG tablet 1 (one) [...] needed metoprolol tartrate (Lopressor) 25 MG tablet [] mupirocin (Bactroban) 2 % ointment Apply topically in the morning and in the evening and before bedtime. Do all this for 10 days. 22 g 0 naloxone (Narcan) 4 mg/0.1 mL nasal spray Administer 4 mg into affected nostril(s) if needed for opioid reversal ondansetron ODT (Zofran-ODT) 4 MG disintegrating tablet [...] as needed for migraine 16 tablet 5 Skin Protectants, Misc. (InterDry 10 x36 ) [...] (150 mg) before bedtime. 120 tablet 2 zinc oxide (Desitin) 40 % paste Apply [...] REDUCTION TOTAL ABDOMINAL HYSTERECTOMY 2010 Visit Vitals BP 124/82 Pulse 86 Resp 17 Ht 5' 9 Wt 205 lb SpO2 97% BMI 30.27 kg/m² Smoking Status Never BSA 2.13 m² Review of Systems Constitutional: Positive for unexpected weight change (Loss). Negative for chills, fatigue and fever. Respiratory: Positive for shortness of breath. Negative for cough and wheezing. Cardiovascular: Positive for leg swelling. Negative for chest pain and palpitations. Gastrointestinal: Positive for diarrhea and nausea. Negative for abdominal pain, constipation and vomiting. Musculoskeletal: Positive for back pain (With deep breaths) and joint swelling. Skin: Negative for rash. Objective Physical Exam Constitutional: General: She is not in acute distress. Appearance: Normal appearance. She is well-developed. HENT: Head: Normocephalic and atraumatic. Eyes: General: No scleral icterus. Conjunctiva/sclera: Conjunctivae normal. Cardiovascular: Rate and Rhythm: Normal rate and regular rhythm. Heart sounds: Normal heart sounds. No murmur heard. Pulmonary: Effort: Pulmonary effort is normal. No respiratory distress. Breath sounds: Normal breath sounds. No wheezing, rhonchi or rales. Abdominal: Comments: Stoma left side of abdomen Musculoskeletal: General: Swelling (Mild left arm) present. Right hand: Normal sensation. Normal pulse. Left hand: Normal sensation. Normal pulse. Right lower leg: No edema. Left lower leg: No edema. Skin: General: Skin is warm and dry. Neurological: General: No focal deficit present. Mental Status: She is alert and oriented to person, place, and time. Psychiatric: Mood and Affect: Mood normal. Behavior: Behavior normal. Assessment/Plan Diagnoses and all orders for this visit: Change in stool - Stool culture; Future - CBC and differential - Basic metabolic panel - C DIFFICILE BY PCR ([facility]); Future Stool studies ordered for further evaluation at this time. Will notify pt of the results once received. Watery stools - Stool culture; Future - CBC and differential - Basic metabolic panel - C DIFFICILE BY PCR ([facility]); Future Stool studies ordered for further evaluation at this time. Will notify pt of the results once received. Stay hydrated, get plenty of rest. Left arm swelling - Ambulatory referral to Physical Therapy; Future Nausea and vomiting, unspecified vomiting type Patient has lost 11 pounds in 11 days. Encouraged her to use the Promethazine and Zofran as needed for nausea. Lymphedema - Ambulatory referral to Physical Therapy; Future Refer to Lymphedema Clinic for further evaluation and treatment. Pt has previous procedure of left arm and has impaired lymphatic flow. Does have a compression garment that she wears every night and morning. Feeding difficulties She is following with her specialist to get the feeding tube back in place. Likely contributing to her recent weight loss. History of Clostridium difficile colitis Will await results of stool studies. Follow up if symptoms worsen or fail to improve. documented in this encounter Plan of Treatment Upcoming Encounters Date Type Department Care Team (Late st Contact Info) Description 04/20/2025 3:00 PM EDT Office Visit [facility] [address] [facility] [address] [place] [phone] Sonny Rodriguez, DPM [address] [address] [place] [address] 05/04/2025 2:50 PM EDT Office Visit [facility] [address] [facility] [address] [place] [address] Sonny Rodriguez, DPLudmila [address] [address] Scheduled Referrals Name Type Priority Associated Diagnoses Order Schedule Ambulatory referral to Physical Therapy Outpatient Referral Routine Left arm swelling Lymphedema Expected: 03/28/2025 (Approximate), Expires: 09/28/2025 documented as of this encounter Visit Diagnoses Diagnosis Change in stool- Primary Watery stools Abnormal feces Left arm swelling Nausea and vomiting, unspecified vomiting type Lymphedema Other noninfectious lymphedema Feeding difficulties Feeding difficulties and mismanagement History of Clostridium difficile colitis documented in this encounter Additional Health Concerns Assessment Noted Time PHQ-9 Depression Total Score: 18 024 9:42 AM EDT documented as of this encounter Care Teams Bed And Breakfast Innkeeper Relationship Specialty Start Date End Date Shlomo Hu MD [address] [facility] [address] [place] [address] PCP - General Internal Medicine 02/15/23 Jess Marsh LPN [address] [facility] [address] [place] [address] 12/06/24 Esthela Tesfaye, KIRA [address] [place] [address] Sba Business Development Officer Family Medicine 02/03/25 documented as of this encounter
--- OUTSIDE RECORDS SUMMARY | 2025-03-30 17:04 | XMS_ITS | Encounter Summary ---
Author Organization [facility] Address [facility] [place] [address] Care Team Providers Care Hand Meat Salter Name Role Phone Jacob Sharp Unavailable Rasheeda Newton RD Unavailable [phone] Unavailable [phone] Fritz HENDERSON MD, Shlomo B Primary Care Provider [phone] Yuan Miller MD, PhD Unavailable [phone] Source Comments In the event this information is protected by the Federal Confidentiality of Alcohol and Drug AbusePatient Records regulations: The Federal rules restrict any use of the information to criminally investigate or prosecute any alcohol or drug abuse patient.[facility] Reason for Visit * Reason Comments Abdominal Pain Right mid abd pain, pt unable to take small sips of water Tube Feeding Assessment Feeding Tube fel l out last week, was suppose to get it placed again Thursday but now has green drainage at site Diarrhea Nausea * Auth/Cert (Routine) Specialty Diagnoses / Procedures Referred By Brenda t Referred To Contact Diagnoses Intractable nausea and vomiting Procedures [address] [address] [place] [id number] Phone: tel: Referral ID Status Reason Start Date Expiration Date Visits Re quested Visits Authorized [id number] 1 1 Encounter Details Date Type Department Care Team (Latest Contact Info) Description 03/30/2025 5:04 PM EDT - 04/04/2025 3:23 PM EDT Hospital Encounter [facility] [address] [address] [place] [address] [place] [id number] [place] [id number] [place] [address] [place] [address] Hernandez Cab[place] [address] [place] [address] [place] [address] Intractable nausea and vomiting [R11.2] Discharge Disposition: Home Social History Tobacco Use Types Packs/Day Years Used Date Smoking Tobacco: Never Smokeless Tobacco: Never Alcohol Use Standard Drinks/Week Comments Not Currently 0 (1 standard drink = 0.6 oz pur e alcohol) [facility] Utilities Answer Date Recorded In the past 12 months has [employer], gas, oil, or water [employer] threatened to shut off services in your [...] living in a chcf (including now)? No 04/03/2025 Area Deprivation Index Answer Date Reagan rded National Score (1-100), lower number is lower ri sk 63 03/05/2023 State Score (1-10), lower number is lower risk 4 03/05/2023 Data from: https://www.neighborhoodatlas.medicine.[facility].edu/. Last address used for calculation [address] [...] file Travel History Travel Start Travel End [place] 03/18/2025 03/26/2025 documented as of this encounter Last Filed Vital Signs Vital Sign Reading Time Taken Comments Blood Pressure 109/53 04/04/2025 11:54 AM EDT Pulse 67 04/04/2025 11:54 AM EDT Temperature 36.7 C (98.1 F) 04/04/2025 11:54 AM EDT Respiratory Rate 20 04/04/2025 11:5 4 AM EDT Oxygen Saturation 94% 04/04/2025 11: 54 AM EDT Inhaled Oxygen Concentration - - Weight 92.4 kg (203 lb 11.3 oz) 03/31/2025 9:25 AM EDT Height 177.8 cm (5' 10 ) 03/31/2025 9:25 AM EDT Body Mass Index 29.23 03/31/2025 9:25 AM EDT documented in this encounter Functional Status * Are you [...] Donna Olea RN documented in this encounter Discharge Summaries * Hernandez Caban MD - 04/04/2025 2:32 PM EDT Images from the original note were not included. DISCHARGE SUMMARY PATIENT NAME: Melina Taveras ADMISSION DATE: 03/30/2025 DISCHARGE DATE: 04/04/2025 ATTENDING PHYSICIAN: Hernandez Caban* Code Status: Full Code PCP: Shlomo Hu II, MD, MD Highest Readmission Risk Score: 25 The 30 day readmissions risk score is derived from an internally validated risk model which evaluates patient level characteristics, utilization history, medication orders and lab results up until the day of discharge. Patients with a score of 39 or above are considered highest risk for readmission. Specific patient level drivers will be listed at the bottom of the summary. TRANSITIONS OF CARE CRITICAL ISSUES: AMOR MEDICATION CHANGES: Continue azithromycin 200 mg daily for 7 days Start oxycodone as needed for pain Continue Culturelle 1 tablet daily for 30 days Continue Carafate and Protonix at home Prescription for Protonix given Follow-up with PCP in 3 to 4 days to show improvement. Patient may consider different antibiotic ifshe does not improve REASON FOR HOSPITALIZATION/FINAL DIAGNOSIS: Campylobacter enteritis HOSPITAL PROBLEMS: Active Hospital Problems Diagnosis POA Campylobacter diarrhea Yes Intractable nausea and vomiting Yes Jejunostomy malfunction (HCC) Yes S/P bariatric surgery Yes Resolved Hospital Problems No resolved problems to display. HOSPITAL COURSE: 49 year old female past medical history of gastric sleeve (2011) later converted to gastric bypass (2021), on enteral feeding since 2022 presented to the emergency department complaining of nausea, vomiting, diarrhea and abdominal pain. States that she suddenly started having nausea, vomiting and diarrhea about a week ago. States that she went to a birthday [employer] but only ate bread sticks prior to developing the symptoms. States that she has been having 8-10 episodes of vomiting and profuse diarrhea since then though she does not appear very dehydrated. States that she has not been able to keep anything down except for small sips of water and soup. States that J-tube fell out on Thursday last week. She called her surgeon's office who scheduled her for J-tube placement and is scheduled on 04/03, however due to worsening symptoms she presented to the ED. States that she had fever of 102 yesterday but denies any night sweats or chills. She denies shortness of breath, cough, chest pain, palpitations, dizziness, urinary complaints. Upon arrival to ED, patient is in moderate distress from abdominal pain. She is otherwise seeminglystable, afebrile. Labs essentially normal except for hypokalemia potassium 3.4. CT abdomen showed no acute pathology. General surgery was consulted in the ED who will be on consult. Patient will be admitted for management of symptoms and possible jejunostomy tube placement. Assessment and plan 49-year-old female comes in for diarrhea fever and vomiting over the last week or so. Patient now found to have Campylobacter infection after lab evaluation of her diarrhea. Patient is started on azithromycin which is slowly improving her symptoms although she is having occasional nausea. Patient still pretty symptomatic and having a lot of pain and diarrhea. Will continue the azithromycin. Patient with slow improvement. Spoke with her surgeon and no surgery is possible. Will discharge today and she will have to schedule the surgery to be done at [facility] maybe next week. Will continue azithromycin for another week or so after that her hospital stay. Discussed continuing azithromycin and symptomatic management of her continued nausea. Discharge time 40 minutes Medical issues: Acute Campylobacter enteritis Vomiting Diarrhea Dehydration History of J-tube insertion and now accidental removal Malnutrition Status post gastric bypass OPERATIONS/PROCEDURE DURING THIS HOSPITALIZATION: * No surgery found * CONSULTS DURING HOSPITALIZATION: Treatment Team: Attending Provider: Hernandez Caban MD Primary Service: 6, [facility] PATIENT CONDITION AT DISCHARGE: Improved DISCHARGE DISPOSITION: Home with Self Intermediate with Self Care Physical Exam Performed: GENERAL: Alert, no distress, cooperative SKIN: Skin color, texture, turgor normal. No rashes or lesions. EYES: PERRLA, EOMI OROPHARYNX: Lips, mucosa, and tongue normal. Teeth and gums normal. Oropharynx normal. LUNGS: Lungs clear to auscultation, Good diaphragmatic excursion bilaterally CARDIAC: Normal S1 and S2; no rubs, murmurs, or gallops ABDOMEN: Abdomen soft, non-tender, BS normal, No masses or organomegaly EXTREMITIES: Extremities normal, no deformities, edema, clubbing or skin discoloration. Good capillary refill., No ulcers NEURO: Moves all 4 extremities, speech is clear and coherent, cranial nerves II- XII intact WOUND/SURGICAL SITE CARE: Orders Placed This Encounter WOUND CARE (NURSING COMMUNICATION ONLY - NOT A CONSULT TO WOUND CARE) (SPECIFY) ([place]), Moisture Left;Lower Abdomen Order Comments: Left abdominal PEG site: Cleanse with sea cleanse or soap and water, pat dry. Apply no sting skin prep to the periwound skin. Next apply stoma powder followed by Triad paste at dime thickness to immediate periwound. Apply [employer] Clear moisture barrier cream to affected areas farther away from the PEG site. Cover all areas with dry dressings and change twice daily and prn Freq: Daily SUPPLIES OR EQUIPMENT: None DIET: Resume your pre-hospital diet ACTIVITY AND EXERCISE: Resume pre-hospital activity FOLLOW UP APPOINTMENTS: Future Appointments Date Time Provider Department Center 04/19/2025 11:00 AM Joann Loera APRN.[facility]IPENING RO[id number] Main - S Bld 04/21/2025 8:[address] [facility] Main - A Bld 05/29/2025 9:00 AM Johanna Martinez MD [facility] Main - A Bld 06/28/2025 10:00 AM Wilma Lei DO [id number] Main - C Bld ALLERGIES Allergen Reactions Tramadol Hives Adhesive Tape (Serina* Rash, Swelling, Itching Nsaids (Non-Steroid* Contraindication-Medical Surgical S/p priscila en y gastric bypass Paxil [Paroxetine] Intolerance Gi upset Scopolamine Other: See Comments Blurred vision DISCHARGE MEDICATION: Medication List START taking these medications azithromycin 250 mg tablet Commonly known as: ZITHROMAX Take 1 tablet by mouth once daily for 7 days. Patient should start on April 05, 2025. Start taking on: April 05, 2025 lactobacillus rhamnosus 10 billion cell capsule Commonly known as: CULTURELLE Take 1 capsule by mouth once daily. Start taking on: April 05, 2025 CHANGE how you take these medications oxyCODONE IR 5 mg immediate release tablet Commonly known as: ROXICODONE Take 1 tablet by mouth every 6 hours as needed for up to 7 days. What changed: reasons to take this pantoprazole DR 40 mg tablet Commonly known as: PROTONIX Take 1 tablet by mouth daily at 6 am. Start taking on: April 05, 2025 What changed: when to take this CONTINUE taking these medications acetaminophen 650 mg/20.3 mL Soln Commonly known as: TYLENOL Take 31.2 mL by mouth every 6 hours. Do not exceed 5 doses in 24 hours. ALPRAZolam 0.5 mg tablet Commonly known as: XANAX B-12 COMPLIANCE 1,000 mcg/mL Kit Generic drug: cyanocobalamin (vitamin B-12) BENADRYL ALLERGY 50 mg tablet Generic drug: diphenhydrAMINE HCL cholecalciferol (Vitamin D3) 1,250 mcg (50,000 unit) Cap capsule Commonly known as: VITAMIN D3 Take 1 capsule by mouth five times a week. Colestipol HCl 5 gram granules Commonly known as: COLESTID Take 5 g by mouth two times a day. CREON 36,000-114,000- 180,000 unit delayed release capsule Generic drug: zeetln-vghbyizc-pppeyed Take 2 capsules by mouth three times a day with meals. 1 with snacks gabapentin 300 mg capsule Commonly known as: NEURONTIN levothyroxine 50 mcg tablet Commonly known as: SYNTHROID MAXALT 10 mg tablet Generic drug: rizatriptan memantine 10 mg tablet Commonly known as: NAMENDA Take 1 tablet by mouth two times a day. methocarbamol 750 mg tablet Commonly known as: ROBAXIN Take 1 tablet by mouth three times a day as needed (for muscle spasm). * Miscellaneous Medical Supply 1 Each once daily. please provide pt with flush bags for her EN needs. * Miscellaneous Medical Supply 1 Each as needed. please provide pt with EN pump for EN needs, supply new one as needed * Miscellaneous Medical Supply 1 Each one time a week. would like one pack per week of the Medline purple gently bath wipes * Miscellaneous Medical Supply Kit 1 Each every 4 months. [employer] MiniOne low profile balloon gastrostomy button with ENFit extension set Size: 18 Fr x 2.5 cm Ref # : [id number] Change tube every 4 months. * Miscellaneous Medical Supply 1 Each one time a week. [employer] 12 inch right angle connection feeding extensionset Ref #: [id number] For use with AMT MiniOne low profile balloon jejunostomy feeding tube. Change the extension set weekly * Miscellaneous Medical Supply 1 each as needed. Needs AMT 18 Fr x 2.5 cm low profile balloon J tube - ENFit multivitamin-ferrous fumarate-folic acid Commonly known as: CENTRUM Take 1 tablet by mouth once daily. naloxone 4 mg/actuation nasal spray NUTRISOURCE FIBER packet Generic drug: guar gum Take 1 Packet by mouth two times a day. ondansetron orally disintegrating 8 mg disintegrating tablet Commonly known as: ZOFRAN ODT Take 1 tablet by mouth every 8 hours as needed for nausea/vomiting. PEPTAMEN 1.5 0.068 gram- 1.5 kcal/mL Generic drug: nutritional supplement Peptamen 1.5 or equal formula via J tube goa; rate 65 mL/hour x 12 hours water flush 60 mL, 6x/day PEPTAMEN INTENSE VHP 0.09 gram- 1 kcal/mL Generic drug: nutritional supplement Via J tube: Peptamen Intense VHP Continuous/cycled pump infusion of 105 mL/hr x 12 hours (1250 mL total/day) via Kangaroo Dung pump. water flush of 50 mL per 1 hour via feed and flush bag promethazine 50 mg tab(s) Commonly known as: PHENERGAN PROSOURCE NO CARB 15-60 gram-kcal/30 mL Lipk Generic drug: nutritional supplement 1 Package by ORAL/FEEDING TUBE route two times a day. pyridoxine (vitamin B6) 50 mg tablet Commonly known as: VITAMIN B6 Take 1 tablet by mouth once daily. RELIZORB Crtg Generic drug: enteral pump accessory for fat hydrolysis One cartridge daily via J tube suzetrigine 50 mg tablet Commonly known as: JOURNAVX Trial Rx: Take 1 tab PO daily for acute pain thiamine 100 mg tablet Commonly known as: VITAMIN B1 Take 1 tablet by mouth once daily. traZODone 100 mg tablet Commonly known as: DESYREL Walker Misc 1 Units once daily. zinc oxide-cod liver oil 40 % paste Commonly known as: DESITIN Apply to affected area around J tube as directed. * This list has 6 medication(s) that are the same as other medications prescribed for you. Read thedirections carefully, and ask your doctor or other care provider to review them with you. STOP taking these medications tiZANidine 4 mg tablet Commonly known as: ZANAFLEX Where to Get Your Medications These medications were sent to [id number] - [place] [address] - [address] - [phone] [place] [address] azithromycin 250 mg tablet lactobacillus rhamnosus 10 billion cell capsule oxyCODONE IR 5 mg immediate release tablet pantoprazole DR 40 mg tablet The patient's risk for 30-day readmission is determined using the following contributing factors: Predictive Model Details 23% (Moderate) Factor Value Calculated 04/04/2025 05:20 19% diagnosis count 42 [facility] READMISSION RISK Model 17% Admissions (365d) 5 10% Malnutrition 1 -7% ED visits (365d) 0 -7% Sodium (Avg) 140.75 -7% Admissions (60d) 1 6% Hospital Unit F[facility] 5PAV -6% Observations (365d) 0 -6% ED Encounter 0 -5% Admissions (90d) 1 Plan of care discussed with Provider, RN, Patient I have performed the qcom-cx-efkt and relevant services for a total of < 30 minutes. I have performed the murf-th-uvpe and relevant services for a total of >30 minutes. SIGNATURE: Hernandez Caban MD DATE: April 04, 2025 TIME: 2:32 PM documented in this encounter Medications at Time of Discharge pantoprazole DR (PROTONIX) 40 mg tablet Take 1 tablet by mouth daily at 6 am. 30 tablet 5 05/05/20 25 oxyCODONE IR (ROXICODONE) 5 mg immediate release tabletIndications:I ntractable nausea and vomiting Take 1 tablet by mouth every 6 hours as needed for up to 7 days. 15 tablet 5 04/11/20 25 azithromycin (ZITHROMAX) 250 mg tablet Take 1 tablet by mouth once daily for 7 days. Patient should start on April 05, 2025. 7 tablet 5 04/12/20 25 lactobacillus rhamnosus (CULTURELLE) 10 billion cell capsule Take 1 capsule by mouth once daily. 30 capsule 5 05/05/20 25 diphenhydrAMINE HCL (BENADRYL ALLERGY) 50 mg tablet Take 50 mg by mouth once daily as needed for cold/allergy symptoms. promethazine (PHENERGAN) 50 mg tab(s) Take 50 mg by mouth every 6 hours as needed for nausea/vomiting. rizatriptan (MAXALT) 10 mg tablet Take 10 mg by mouth as needed for migraine headache (see administration instructions). May repeat dose after 2 hours if needed. Maximum daily dose is 30 mg per day. traZODone (DESYREL) 100 mg tablet Take 100 mg by mouth daily at bedtime. gabapentin (NEURONTIN) 300 mg capsule Take 1,200 mg by mouth three times a day. naloxone 4 mg/actuation nasal spray (NARCAN) 1 spray by nasal (alternating) route. Use 1 spray in one nostril as needed for overdose. May repeat every 2 to 3 min in alternating nostrils until medical assistance is available kejxwt-ulmkuauo-wbe lase (CREON) 36,000-114,000- 180,000 unit delayed release capsule Take 2 capsules by mouth three times a day with meals. 1 with snacks 600 capsule 1 5 09/17/19 26 memantine (NAMENDA) 10 mg tabletIndications:C hronic pain syndrome,Small fiber neuropathy Take 1 tablet by mouth two times a day. 60 tablet 1 5 suzetrigine (JOURNAVX) 50 mg tabletIndications:C hronic pain syndrome,Visceral hyperalgesia,Neural lenard and neuritis,History of Priscila-en-Y gastric bypass,Generalized abdominal pain,H/O gastric bypass,Pain at surgical site Trial Rx: Take 1 tab PO daily for acute pain 30 tablet 5 nutritional supplement (PEPTAMEN INTENSE VHP) 0.09 gram- 1 kcal/mLIndications: On tube feeding diet Via J tube: Peptamen Intense VHP Continuous/cycled pump infusion of 105 mL/hr x 12 hours (1250 mL total/day) via Kangaroo Dung pump. water flush of 50 mL per 1 hour via feed and flush bag 78570 mL 5 Miscellaneous Medical SupplyIndications:J ejunostomy tube present (HCC),On enteral nutrition 1 each as needed. Needs AMT 18 Fr x 2.5 cm low profile balloon J tube - ENFit 1 each 3 5 Miscellaneous Medical Supply kit 1 Each every 4 months. [employer] MiniOne low profile balloon gastrostomy button with ENFit extension set Size: 18 Fr x 2.5 cm Ref # : [id number] Change tube every 4 months. 1 Kit 5 5 12/14/19 26 Miscellaneous Medical Supply 1 Each one time a week. [employer] 12 inch right angle connection feeding extension set Ref #: [id number] For use with AMT MiniOne low profile balloon jejunostomy feeding tube. Change the extension set weekly 1 Each 11 5 nutritional supplement (PROSOURCE NO CARB) 15-60 gram-kcal/30 mL lipk 1 Package by ORAL/FEEDING TUBE route two times a day. 60 Packet 5 5 05/20/20 25 Miscellaneous Medical Supply 1 Each one time a week. would like one pack per week of the Medline purple gently bath wipes 4 Each 5 5 05/20/20 25 nutritional supplement (PEPTAMEN 1.5) 0.068 gram- 1.5 kcal/mL Peptamen 1.5 or equal formula via J tube goa; rate 65 mL/hour x 12 hours water flush 60 mL, 6x/day [address]3824 mL 3 5 guar gum (NUTRISOURCE FIBER) packet Take 1 Packet by mouth two times a day. 60 Packet 5 enteral pump access.hydrolysis (RELIZORB) crtg One cartridge daily via J tube 30 Each 5 Miscellaneous Medical SupplyIndications:O n tube feeding diet 1 Each once daily. please provide pt with flush bags for her EN needs. 30 Each 4 05/11/20 25 Miscellaneous Medical SupplyIndications:O n tube feeding diet 1 Each as needed. please provide pt with EN pump for EN needs, supply new one as needed 1 Each 2 4 05/11/20 25 ondansetron orally disintegrating (ZOFRAN ODT) 8 mg disintegrating tablet Take 1 tablet by mouth every 8 hours as needed for nausea/vomiting. 30 tablet 1 4 methocarbamol (ROBAXIN) 750 mg tablet Take 1 tablet by mouth three times a day as needed (for muscle spasm). 20 tablet 4 acetaminophen (TYLENOL) 650 mg/20.3 mL soln Take 31.2 mL by mouth every 6 hours. Do not exceed 5 doses in 24 hours. 500 mL 4 Walker misc 1 Units once daily. 1 Each 4 MULTIVITAMIN-FERROU S FUMARATE-FOLIC ACID 18 MG-400 MCG TABLET Take 1 tablet by mouth once daily. 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 4 levothyroxine (SYNTHROID) 50 mcg tablet Take 50 mcg by mouth. 7 cyanocobalamin, vitamin B-12, (B-12 COMPLIANCE) 1,000 mcg/mL kit 1 mL by INJECTION(UNSPECIFI ED PARENTERAL ROUTES) route one time a week. ALPRAZolam (XANAX) 0.5 mg tablet Take 0.5 mg by mouth at bedtime as needed. 2 documented as of this encounter Progress Notes * mAalia Steve RN - 04/04/2025 1:01 PM EDT CARE MANAGEMENT DISCHARGE NOTE SERVICE DATE: April 04, 2025 SERVICE TIME: 1:02 PM Admission Date: 03/30/2025 LOS: 4 days Discharge Arrangement Discharge Arrangement: Home with Self Care Services Arranged Medical Services: Other: See Comment (None) Caregiver Assessment Caregiver is ready, willing and able to meet the patient's needs as recommended by the inter-professional team: No Caregiver needed Transportation Arrangements Transportation Arrangements: Car Date of Trip: 04/04/25 Destination: Home Handoff Communication: Handoff to: Primary Care Physician Primary Care Physician Name/Phone: Dr. Hu [phone] Additional Information: Patient has been receiving enteral feeding via J tube since 2022. Per chartreview, patient's J tube fell out and was scheduled for J tube placement on 04/03. Patient presentedto ED prior due to worsening symptoms of nausea, vomiting, diarrhea, and abdominal pain. Patientactive with [facility] for TF/supplies and will need TF script prior to DC to resume services. Patient scheduled for J tube placement on 04/[address] [facility]. Spoke with [facility] liaison Margy [phone] via phone to update. Per Margy, no TF script needed at this time. HIP willfollow up with patient s/p J tube placement. Patient medically cleared for discharge. Patient will return home with no skilled needs. Discharge transportation provided by patient's family. SIGNATURE: Amalia Steve RN PATIENT NAME: Melina Taveras DATE: April 04, 2025 TIME: 1:02 PM * Hernandez Caban MD - 04/03/2025 4:33 PM EDT DEPARTMENT OF HOSPITAL MEDICINE PROGRESS NOTE SERVICE DATE: 04/03/2025 SERVICE TIME: 4:33 PM Hospital Medicine/Primary Attending: Hernandez Caban* NIGHT & WEEKEND COVERAGE: [place] COVERAGE:TEAM 4-7: Days [phone] - [phone] please secure chat or page Hernandez Caban MD for patient issues. Nights [phone] please page [phone]. Subjective INTERVAL HPI: Patient still in pain although little improved. Still having diarrhea. Not eating much. I spoke with her surgeon about her scheduled surgery at [facility] earlier this morning. Current Facility-Administered Medications Medication Dose Route Frequency NaCl 0.9% iv flush bag 20 mL INTRAVENOUS PRN ALPRAZolam 0.5 mg tab(s) (XANAX) 0.5 mg ORAL AT BEDTIME PRN colestipol 5 g tab(s) (COLESTID) 5 g ORAL BID levothyroxine 50 mcg tab(s) (SYNTHROID) 50 mcg ORAL DAILY (6 AM) nomtry-mvntbpvm-lljvtwn 3 capsule cap(s) (CREON 24) 3 capsule ORAL TID w MEALS memantine 10 mg tab(s) (NAMENDA) 10 mg ORAL BID methocarbamol 750 mg tab(s) (ROBAXIN) 750 mg ORAL TID PRN ondansetron 4 mg tab(s) (ZOFRAN) 4 mg ORAL q 6 H PRN Or ondansetron (PF) 4 mg injection (ZOFRAN) 4 mg INTRAVENOUS q 6 H PRN acetaminophen 650 mg tab(s) (TYLENOL) 650 mg ORAL q 6 H PRN diphenhydrAMINE 50 mg injection (BENADRYL) 50 mg INTRAVENOUS q 6 H PRN gabapentin 900 mg cap(s) (NEURONTIN) 900 mg ORAL q 8 H zinc oxide ointment 20% TOPICAL PRN prochlorperazine 10 mg tab(s) (COMPAZINE) 10 mg ORAL q 8 H PRN azithromycin 500 mg tab(s) (ZITHROMAX) 500 mg ORAL DAILY pantoprazole DR 40 mg tab(s) (PROTONIX) 40 mg ORAL DAILY (6 AM) oxyCODONE IR 5-10 mg tab(s) (ROXICODONE) 5-10 mg ORAL q 4 H PRN sucralfate 1 g tab(s) (CARAFATE) 1 g ORAL BID AC benzocaine 1 lozenge (CHOLORASEPTIC WARMING SORE THROAT) 1 lozenge MUCOUS MEMBRANE (TOPICAL MOUTH & THROAT) q 2 H PRN lactobacillus rhamnosus 10 billion cell (CULTURELLE) capsule 1 capsule ORAL DAILY Objective PHYSICAL EXAM: BP 101/55 Pulse 83 Temp (Src) 97.5 (Oral) Resp 16 Ht 5' 10 (1.78m) Wt 203 lb 11.3 oz (92.4kg) SpO2 100% BMI 29.23 kg/(m^2). O2 Therapy: Room Air Physical Exam Performed: GENERAL: Alert, no distress, cooperative SKIN: Skin color, texture, turgor normal. No rashes or lesions. EYES: PERRLA, EOMI OROPHARYNX: Lips, mucosa, and tongue normal. Teeth and gums normal. Oropharynx normal. LUNGS: Lungs clear to auscultation, Good diaphragmatic excursion bilaterally CARDIAC: Normal S1 and S2; no rubs, murmurs, or gallops ABDOMEN: Abdomen soft, non-tender, BS normal, No masses or organomegaly EXTREMITIES: Extremities normal, no deformities, edema, clubbing or skin discoloration. Good capillary refill., No ulcers NEURO: Moves all 4 extremities, speech is clear and coherent, cranial nerves II- XII intact Lines, Drains, and Airways Line Duration Peripheral 04/02/25 0450 Short Left Forearm 20 Gauge 1 day Peripheral 04/03/25 1541 [facility] Left Forearm 22 Gauge <1 day Patient does not currently have any lines, drains or airways. DATA: Diagnostic tests reviewed for today's visit: Most recent labs Sodium 142, creatinine 0.6 albumin 2.7 white cell count is 6 hemoglobin 11 Assessment/Plan Problem List Assessment & Plan Intractable nausea and vomiting S/P bariatric surgery Jejunostomy malfunction (HCC) Campylobacter diarrhea HOSPITAL COURSE: 49-year-old female comes in for diarrhea fever and vomiting over the last week or so. Patient now found to have Campylobacter infection. Patient still pretty symptomatic and having a lot of pain and diarrhea. Will continue the azithromycin. Patient with slow improvement. Spoke with her surgeon and no surgery is possible today. Will discharge as early as tomorrow and she will have to schedule the surgery to be done at [facility] maybe next week. Will continue azithromycin for another week or so after that her hospital stay. Medical issues: Acute Campylobacter enteritis Vomiting Diarrhea Dehydration History of J-tube insertion and now accidental removal Malnutrition Status post gastric bypass Medication and Non-Pharmacologic VTE Prophylaxis/Anticoagulants VTE Prophylaxis: VTE prophylaxis appropriate Disposition: Home Plan of care discussed with Provider, RN, Patient Plan communicated to: N/A SIGNATURE: Hernandez Caban MD PATIENT NAME: Melina Taveras DATE: April 03, 2025 TIME: 4:33 PM * Amalia Steve RN - 04/03/2025 3:31 PM EDT CARE MANAGEMENT: ASSESSMENT AND DISCHARGE PLAN SERVICE DATE: April 03, 2025 SERVICE TIME: 3:31 PM PCP: Shlomo Hu II, MD, MD Primary Contact: Extended Emergency Contact Information Primary Emergency Contact: Shaw Taveras Address: [address] [place] [address] OF [facility] Mobile Relation: Spouse Admission Status: Inpatient Insurance Provider[facility] Discharge Planning requested by: Per Department Practice Potential Transition Plans Home Advance Directives Current Advance Directive: Health Care Power of Social Work Specialist In Chart: Yes Up To Date and Valid: Yes HCPOA paperwok on file within [facility] and verified to be current as of date/time of this note : Yes Legal Next of Kin Hierarchy per [place] Revised Code: Healthcare Power of Social Work Specialist - Shaw Taveras, spouse Legal Spouse Majority of Adult Children (consensus if possible) Parents Majority of Adult Siblings (consensus if possible) Nearest Blood Relative Amalia Steve RN April 03, 2025 Current Living Arrangements and Support Lives with: Children, Spouse/significant other Type of Residence: Private Residence (House) Support: Spouse/significant other, Children How do you manage to accomplish the following: Independent: Ambulation Needs Assistance: Bathe/Shower, Dress, Meals/Meal Prep, Going to the bathroom, Medication Management, Transportation to appointments/community Current Services/Equipment Current Post-Acute Service(s): DME Current DME Type: Cane, Rolling walker Discharge Planning Patient Goal(s): Be able to go home, General wellness Bison of Choice Explained: Bison of Choice Given: No Reason Not Given: No placements necessary Are you interested in bedside delivery of your medications? Yes Discharge Planning Participant(s): Patient Caregiver Assessment: Caregiver is ready, willing and able to meet the patient's needs as recommended by the inter-professional team: No Caregiver needed Transport at Discharge: Transportation Arrangements: Car Destination: Home Needs Prior to Discharge: Needs Prior to Discharge: To Be Determined Post-Acute Discharge Plan: CM met with patient at bedside to complete assessment. Patient is a 49 y/o female admitted for nausea, vomiting, diarrhea, and abdominal pain. PMHx of gastric sleeve (2011) and gastric bypass (2021).Patient lives at home with her spouse and 4 children. Patient ambulates with rollator or cane. Patient is mostly independent with ADLs and reports her spouse assists as needed. Patient does not driveand states her family provides transportation. No transitional care needs identified at this time. Discharge transportation provided by patient's family. CM remains available for plan of care and discharge planning needs as they arise. SIGNATURE: Amalia Steve RN PATIENT NAME: Melina Taveras DATE: April 03, 2025 TIME: 3:31 PM * Hernandez Caban MD - 04/02/2025 4:55 PM EDT DEPARTMENT OF HOSPITAL MEDICINE PROGRESS NOTE SERVICE DATE: 04/02/2025 SERVICE TIME: 4:55 PM Hospital Medicine/Primary Attending: Hernandez Caban* NIGHT & WEEKEND COVERAGE: [place] COVERAGE:TEAM 4-7: Days 729 - [phone] please secure chat or page Hernandez Caban MD for patient issues. Nights 1700 - 07 please page [phone]. Subjective INTERVAL HPI: Still having extensive right upper quadrant pain and nauseous. Not eating much. Still having 8 episodes of diarrhea since yesterday. Current Facility-Administered Medications Medication Dose Route Frequency NaCl 0.9% iv flush bag 20 mL INTRAVENOUS PRN ALPRAZolam 0.5 mg tab(s) (XANAX) 0.5 mg ORAL AT BEDTIME PRN colestipol 5 g tab(s) (COLESTID) 5 g ORAL BID levothyroxine 50 mcg tab(s) (SYNTHROID) 50 mcg ORAL DAILY (6 AM) [id number] 3 capsule cap(s) (CREON 24) 3 capsule ORAL TID w MEALS memantine 10 mg tab(s) (NAMENDA) 10 mg ORAL BID methocarbamol 750 mg tab(s) (ROBAXIN) 750 mg ORAL TID PRN ondansetron 4 mg tab(s) (ZOFRAN) 4 mg ORAL q 6 H PRN Or ondansetron (PF) 4 mg injection (ZOFRAN) 4 mg INTRAVENOUS q 6 H PRN acetaminophen 650 mg tab(s) (TYLENOL) 650 mg ORAL q 6 H PRN diphenhydrAMINE 50 mg injection (BENADRYL) 50 mg INTRAVENOUS q 6 H PRN gabapentin 900 mg cap(s) (NEURONTIN) 900 mg ORAL q 8 H zinc oxide ointment 20% TOPICAL PRN prochlorperazine 10 mg tab(s) (COMPAZINE) 10 mg ORAL q 8 H PRN azithromycin 500 mg tab(s) (ZITHROMAX) 500 mg ORAL DAILY pantoprazole DR 40 mg tab(s) (PROTONIX) 40 mg ORAL DAILY (6 AM) oxyCODONE IR 5-10 mg tab(s) (ROXICODONE) 5-10 mg ORAL q 4 H PRN sucralfate 1 g tab(s) (CARAFATE) 1 g ORAL BID AC Objective PHYSICAL EXAM: BP 123/50 Pulse 84 Temp (Src) 97.7 (Oral) Resp 16 Ht 5' 10 (1.78m) Wt 203 lb 11.3 oz (92.4kg) SpO2 98% BMI 29.23 kg/(m^2). O2 Therapy: Room Air Physical Exam Performed: GENERAL: Alert, no distress, cooperative SKIN: Skin color, texture, turgor normal. No rashes or lesions. EYES: PERRLA, EOMI OROPHARYNX: Lips, mucosa, and tongue normal. Teeth and gums normal. Oropharynx normal. LUNGS: Lungs clear to auscultation, Good diaphragmatic excursion bilaterally CARDIAC: Normal S1 and S2; no rubs, murmurs, or gallops ABDOMEN: Significant pain and some guarding to the right upper quadrant and epigastric area EXTREMITIES: Extremities normal, no deformities, edema, clubbing or skin discoloration. Good capillary refill., No ulcers NEURO: Moves all 4 extremities, speech is clear and coherent, cranial nerves II- XII intact Lines, Drains, and Airways Line Duration Peripheral 04/02/25 0450 Short Left Forearm 20 Gauge <1 day Patient does not currently have any lines, drains or airways. DATA: Diagnostic tests reviewed for today's visit: Most recent labs Assessment/Plan Problem List Assessment & Plan Intractable nausea and vomiting S/P bariatric surgery Jejunostomy malfunction (HCC) Campylobacter diarrhea HOSPITAL COURSE: 49-year-old female comes in for diarrhea fever and vomiting over the last week or so. Patient now found to have Campylobacter infection. Patient still pretty symptomatic and having a lot of pain and diarrhea. Will continue the azithromycin. Consulted GI to help with pain management. I started a PPI and will have to arrange for her to get the J-tube replaced at some point. Will change her medicines to p.o. oral narcotics and continue azithromycin. Hopefully her symptoms improve over the next day or 2 Medical issues: Acute Campylobacter enteritis Vomiting Diarrhea Dehydration History of J-tube insertion and now accidental removal Malnutrition Status post gastric bypass Medication and Non-Pharmacologic VTE Prophylaxis/Anticoagulants VTE Prophylaxis: VTE prophylaxis appropriate Disposition: Home Plan of care discussed with Provider, RN, Patient Plan communicated to: N/A SIGNATURE: Hernandez Caban MD PATIENT NAME: Melina Taveras DATE: April 02, 2025 TIME: 4:55 PM * Hernandez Caban MD - 04/01/2025 4:04 PM EDT DEPARTMENT OF HOSPITAL MEDICINE PROGRESS NOTE SERVICE DATE: 04/01/2025 SERVICE TIME: 4:04 PM Hospital Medicine/Primary Attending: Hernandez Caban* NIGHT & WEEKEND COVERAGE: [place] COVERAGE:TEAM 4-7: Days 729 - 1699 please secure chat or page Hernandez Caban MD for patient issues. Nights [phone] - [phone] please page [phone]. Subjective INTERVAL HPI: She still complaining of some diarrhea and nausea. Patient found to have Campylobacter positive. Patient states she is still very dehydrated and somewhat weak. She is only able to eat after her recent J-tube fell out. Current Facility-Administered Medications Medication Dose Route Frequency NaCl 0.9% iv flush bag 20 mL INTRAVENOUS PRN ALPRAZolam 0.5 mg tab(s) (XANAX) 0.5 mg ORAL AT BEDTIME PRN colestipol 5 g tab(s) (COLESTID) 5 g ORAL BID levothyroxine 50 mcg tab(s) (SYNTHROID) 50 mcg ORAL DAILY (6 AM) [id number] 3 capsule cap(s) (CREON 24) 3 capsule ORAL TID w MEALS memantine 10 mg tab(s) (NAMENDA) 10 mg ORAL BID methocarbamol 750 mg tab(s) (ROBAXIN) 750 mg ORAL TID PRN ondansetron 4 mg tab(s) (ZOFRAN) 4 mg ORAL q 6 H PRN Or ondansetron (PF) 4 mg injection (ZOFRAN) 4 mg INTRAVENOUS q 6 H PRN acetaminophen 650 mg tab(s) (TYLENOL) 650 mg ORAL q 6 H PRN diphenhydrAMINE 50 mg injection (BENADRYL) 50 mg INTRAVENOUS q 6 H PRN HYDROmorphone 0.5 mg injection (DILAUDID) 0.5 mg INTRAVENOUS q 4 H PRN gabapentin 900 mg cap(s) (NEURONTIN) 900 mg ORAL q 8 H zinc oxide ointment 20% TOPICAL PRN oxyCODONE IR 5 mg tab(s) (ROXICODONE) 5 mg ORAL q 6 H PRN lactated ringers iv infusion 100 mL/hr INTRAVENOUS CONTINUOUS Objective PHYSICAL EXAM: BP 98/52 Pulse 80 Temp (Src) 98.1 (Oral) Resp 16 Ht 5' 10 (1.78m) Wt 203 lb 11.3 oz (92.4kg) SpO2 97% BMI 29.23 kg/(m^2). O2 Therapy: Room Air Physical Exam Performed: GENERAL: Alert, no distress, cooperative SKIN: Skin color, texture, turgor normal. No rashes or lesions. EYES: PERRLA, EOMI OROPHARYNX: Lips, mucosa, and tongue normal. Teeth and gums normal. Oropharynx normal. LUNGS: Lungs clear to auscultation, Good diaphragmatic excursion bilaterally CARDIAC: Normal S1 and S2; no rubs, murmurs, or gallops ABDOMEN: Abdomen soft, non-tender, BS normal, No masses or organomegaly EXTREMITIES: Extremities normal, no deformities, edema, clubbing or skin discoloration. Good capillary refill., No ulcers NEURO: Moves all 4 extremities, speech is clear and coherent, cranial nerves II- XII intact Lines, Drains, and Airways Line Duration Peripheral 04/01/25 Left Forearm 20 Gauge <1 day Patient does not currently have any lines, drains or airways. DATA: Diagnostic tests reviewed for today's visit: Most recent labs Most recent imaging Sodium 138, creatinine 0.7, BUN is 6 urinalysis shows a high spec graph stool studies positive for Campylobacter CT abdomen shows no obvious bowel obstruction or colitis noted Assessment/Plan Problem List Assessment & Plan Intractable nausea and vomiting S/P bariatric surgery Jejunostomy malfunction (HCC) HOSPITAL COURSE: 49-year-old female comes in for diarrhea fever and vomiting over the last week or so. Patient now found to have Campylobacter infection. Patient started on azithromycin and she still dry and we will give her IV fluid bolus and started on IV fluids. The patient feels better she can be safely discharged. She will go on 10 days of azithromycin. As regarding her J-tube that fell out the patient has a scheduled appointment in 2 days and we willtry to continue that appointment. The patient still in the hospital we will look to IR to reinsert the J-tube if possible. Medical issues: Acute Campylobacter enteritis Vomiting Diarrhea Dehydration History of J-tube insertion and now accidental removal Malnutrition Status post gastric bypass Medication and Non-Pharmacologic VTE Prophylaxis/Anticoagulants VTE Prophylaxis: VTE prophylaxis appropriate Disposition: Home Plan of care discussed with Patient and RN Plan communicated to: N/A SIGNATURE: Hernandez Caban MD PATIENT NAME: Melina Taveras DATE: April 01, 2025 TIME: 4:04 PM documented in this encounter H&P Notes * Chong Crawford MD - 03/31/2025 2:55 AM EDT DEPARTMENT OF HOSPITAL MEDICINE HISTORY AND PHYSICAL EXAM SERVICE DATE: 03/31/2025 Code Status: Prior SERVICE TIME: 3:53 AM Primary Care Physician: Shlomo Hu II, MD, MD NIGHT & WEEKEND COVERAGE: [place] COVERAGE:TEAM 4-7: Days 729 - 1699 please secure chat or page Chong Crawford MD for patient issues. Nights [phone] - [phone] please page [phone]. Subjective CHIEF COMPLAINT: Intractable nausea and vomiting HPI: This is a 49 year old female past medical history of gastric sleeve (2011) later converted to gastric bypass (2021), on enteral feeding since 2022 presented to the emergency department complaining of nausea, vomiting, diarrhea and abdominal pain. States that she suddenly started having nausea,vomiting and diarrhea about a week ago. States that she went to a birthday democr[employer] but only ate breadsticks prior to developing the symptoms. States that she has been having 8-10 episodes of vomiting and profuse diarrhea since then though she does not appear very dehydrated. States that she has not been able to keep anything down except for small sips of water and soup. States that J-tube fell outon Thursday last week. She called her surgeon's office who scheduled her for J-tube placement and is scheduled on 04/03, however due to worsening symptoms she presented to the ED. States that she had fever of 102 yesterday but denies any night sweats or chills. She denies shortness of breath, cough, chest pain, palpitations, dizziness, urinary complaints. Upon arrival to ED, patient is in moderate distress from abdominal pain. She is otherwise seeminglystable, afebrile. Labs essentially normal except for hypokalemia potassium 3.4. CT abdomen showed no acute pathology. General surgery was consulted in the ED who will be on consult. Patient will be admitted for management of symptoms and possible jejunostomy tube placement. PAST MEDICAL HISTORY Diagnosis Date Breast mass [...] in a hospital admission) ALLERGIES Allergen Reactions Tramadol Hives Adhesive Tape (Serina* Rash, Swelling, Itching Nsaids (Non-Steroid* Contraindication-Medical Surgical S/p priscila en y gastric bypass Paxil [Paroxetine] Intolerance Gi upset Scopolamine Other: See Comments Blurred vision REVIEW OF SYSTEM: Negaitve unless mentioned in HPI Objective PHYSICAL EXAM: BP 101/58 Pulse 64 Temp (Src) 97.7 (Oral) Resp 18 Ht 5' 8 (1.73m) Wt 211 lb (95.7kg) SpO2 99% BMI 32.09 kg/(m^2). O2 Therapy: Room Air Physical Exam Performed: General: Awake, alert, oriented, not in acute distress HEENT: Normocephalic, atraumatic, PERRLA, normal mucosa CVS: Regular rate rhythm, S1-S2 heard, no murmurs or gallops Lungs: No wheezing or rhonchi heard Abdomen: Soft, nontender, bowel sounds heard Extremities: No edema Neuro: No focal neurological deficit, speech normal Skin: No rashes or lesions Psych: Normal mood and affect Lines, Drains, and Airways Line Duration Peripheral 03/30/25 1805 [facility] Right Forearm 20 Gauge <1 day Patient does not currently have any lines, drains or airways. DATA: Diagnostic tests reviewed for today's visit: Most recent labs Most recent imaging CBC, Coags, BMP, Mg, Phos Recent Labs 03/30/251804 WBC 7.88 HB 12.9 HCT 38.6 PLT 424* NA 142 K 3.4* CHLOR 108* CO2 24 BUN 7 CREAT 0.81 GLUC 100* CA 9.0 Assessment/Plan Problem List Intractable nausea and vomiting (POA: Yes) S/P bariatric surgery (POA: Yes) Jejunostomy malfunction (HCC) (POA: Yes) HOSPITAL COURSE: Melina Taveras is a 49 year old female presented to the ED complaining of intractable nausea, vomiting, diarrhea and abdominal pain. CT abdomen showed no acute pathology. Patient is being managed for symptom management. Principal Problem: Intractable nausea and vomiting Assessment & Plan: Patient currently comfortable at rest, denies any nausea, vomiting or abdominal pain. She does not appear dehydrated She is hemodynamically stable, afebrile, saturating well on room air Labs essentially normal except for mild hypokalemia CT abdomen showed no acute pathology Manage pain, antiemetics as needed Continue home meds Telemetry DVT prophylaxis CODE STATUS full code, discussed with patient Medication Reconciliation: Completed Medication and Non-Pharmacologic VTE Prophylaxis/Anticoagulants VTE Prophylaxis: VTE prophylaxis appropriate Disposition: Home Plan of care discussed with Provider, RN, Patient Plan communicated to: Patient SIGNATURE: Chong Crawford MD PATIENT NAME: Melina Taveras DATE: March 31, 2025 TIME: 2:55 AM documented in this encounter Consult Notes * Jonathon Eaton RN - 04/03/2025 2:55 PM EDT Images from the original note were not included. WOUND CARE SERVICE CONSULT NOTE SERVICE DATE: 04/03/2025 SERVICE TIME: 1345 HISTORY OF PRESENT ILLNESS: Melina Taveras is a 49 year old female is being seen with the admitting diagnosis of intractable nausea and vomiting. The pt has a PEG tube site to the left upper quadrant of the abdomen, but the PEG tube has been dislodged and is no longer present. The pt reports thatlena is having a large amount of digestive drainage from the tube site, that is causing damage to her skin as well as pain. The wound team was consulted to assess the site and make recommendations forcare. Pt has tried Desitin, Vasaline, stoma powder. and dry dressings as well as an ostomy pouch. 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 MEDICATIONS: Current Facility-Administered Medications Medication Dose Route Frequency NaCl 0.9% iv flush bag 20 mL INTRAVENOUS PRN ALPRAZolam 0.5 mg tab(s) (XANAX) 0.5 mg ORAL AT BEDTIME PRN colestipol 5 g tab(s) (COLESTID) 5 g ORAL BID levothyroxine 50 mcg tab(s) (SYNTHROID) 50 mcg ORAL DAILY (6 AM) [id number] 3 capsule cap(s) (CREON 24) 3 capsule ORAL TID w MEALS memantine 10 mg tab(s) (NAMENDA) 10 mg ORAL BID methocarbamol 750 mg tab(s) (ROBAXIN) 750 mg ORAL TID PRN ondansetron 4 mg tab(s) (ZOFRAN) 4 mg ORAL q 6 H PRN Or ondansetron (PF) 4 mg injection (ZOFRAN) 4 mg INTRAVENOUS q 6 H PRN acetaminophen 650 mg tab(s) (TYLENOL) 650 mg ORAL q 6 H PRN diphenhydrAMINE 50 mg injection (BENADRYL) 50 mg INTRAVENOUS q 6 H PRN gabapentin 900 mg cap(s) (NEURONTIN) 900 mg ORAL q 8 H zinc oxide ointment 20% TOPICAL PRN prochlorperazine 10 mg tab(s) (COMPAZINE) 10 mg ORAL q 8 H PRN azithromycin 500 mg tab(s) (ZITHROMAX) 500 mg ORAL DAILY pantoprazole DR 40 mg tab(s) (PROTONIX) 40 mg ORAL DAILY (6 AM) oxyCODONE IR 5-10 mg tab(s) (ROXICODONE) 5-10 mg ORAL q 4 H PRN sucralfate 1 g tab(s) (CARAFATE) 1 g ORAL BID AC benzocaine 1 lozenge (CHOLORASEPTIC WARMING SORE THROAT) 1 lozenge MUCOUS MEMBRANE (TOPICAL MOUTH & THROAT) q 2 H PRN lactobacillus rhamnosus 10 billion cell (CULTURELLE) capsule 1 capsule ORAL DAILY ALLERGIES Allergen Reactions Tramadol Hives Adhesive Tape (Serina* Rash, Swelling, Itching Nsaids (Non-Steroid* Contraindication-Medical Surgical S/p priscila en y gastric bypass Paxil [Paroxetine] Intolerance Gi upset Scopolamine Other: See Comments Blurred vision Objective PHYSICAL EXAM: BP 99/55 Pulse 70 Temp (Src) 97.9 (Oral) Resp 16 Ht 5' 10 (1.78m) Wt 203 lb 11.3 oz (92.4kg) SpO2 99% BMI 29.23 kg/(m^2). O2 Therapy: Room Air Presenting wound information: Wound Moisture Abdomen Left;Lower (Active) Assessments 04/03/2025 1:45 PM Wound Image Site Assessment Red;Painful;Denuded Anita-Wound Assessment Denuded Drainage Description Yellow;Green (bile/effluent) Drainage Amount Large DATA Diagnostic tests reviewed for today's visit: photo Impression/Recommendations Left upper quadrant PEG site with denuded skin: - Cleanse with sea cleanse or soap and water, pat dry. Apply no sting skin prep to the periwound skin. Next apply stoma powder followed by Triad paste at dime thickness to immediate periwound. Apply Criticaid Clear moisture barrier cream to affected areas farther away from the PEG site. Cover all areas with dry dressings and change twice daily and prn Barriers to Healing: Body habitus, Comorbid conditions, Compliance with care regimen, Critical carestatus, Mobility, and Moisture Pressure Injury Prevention: Heel offloading, Moisture management, Redistribution surface, Turn schedule, and Turning positioner/wedge Counseling Provided: Prevention Dressing/ointments Observations Follow Up: Information provided in Discharge Instructions PHOTOGRAPHY: A photo was taken of the patient's wound(s). Photos can be found in Chart Review under the Scanned Docs tab in [employer]. The purpose of the photo(s) is to optimize the patient's medical care and allow a visual aid to their wound evaluation and progress. Photo was taken of: abdomen Thank you for including me in the care of this patient. Please re-consult our service if further wound care needs arise. SIGNATURE: Jonathon Eaton RN PATIENT NAME: Melina Taveras DATE: April 03, 2025 TIME: 2:55 PM * Linda Tsai, HEAT TREAT FURNACE OPERATOR.RIPENING ROOM HAND - 04/02/2025 1:30 PM EDTAssociated Order(s): PHYSICIAN CONSULT (AK,AV,EU,FV,HL,IR,STEFANI,MH,MM,MO,MR,SP,UN) CONSULT: GI SERVICE SERVICE DATE: 04/02/2025 SERVICE TIME: 1:30 PM REASON FOR CONSULT: campylobacter/abd pain/need j tube replaced REQUESTING PHYSICIAN: Dr. Caban PRIMARY CARE PHYSICIAN: Shlomo Hu II, MD, MD Subjective Ms. Taveras is a 49 year old female with for past medical history of gastric sleeve (2011) later converted to gastric bypass (2021), on enteral feeding since 2022 presented to the emergency department complaining of nausea, vomiting, diarrhea and abdominal pain on 03/30. States that she suddenly started having nausea, vomiting and diarrhea about a week ago. States that she went to a birthday democr[place] but only ate bread sticks prior to developing the symptoms. Tested + for campylobacter on admission and was started on 3 day course of Azithromycin yesterday. States overall she is much improved from afew days ago but still has had 3-4 episodes of diarrhea today. No recent vomiting. Did not like food options for breakfast but ordered mac cheese/carrots for lunch. Was unhappy when no longer could receive IV pain meds due to infiltration and thinks she really needs something very strong to control her pain. States that J- tube fell out on Thursday last week. She called her surgeon's office who scheduled her for J-tube placement and is scheduled on 04/03 at at 1400, however she is worried it will not be replaced given her current infection. She endorses fever prior to admission but nothing since arrival. She denies shortness of breath, cough, chest pain, palpitations, dizziness, urinary complaints. Last EGD 12/06/24 showed Normal esophagus. Gastric bypass with a pouch 4.5 cm in length andintact staple line. Gastric pouch biopsied. Gastrojejunal anastomosis characterized by healthy appearing mucosa. Normal examined jejunum. Biopsied. Labs: WBC 6.55, H/H 10.7, 33.2, plt 321, BUN 10, Creat 0.67, Tbili 0.3, Alk P 126, ALT 11, AST 12, Lipase<10 FUNCTIONAL STATUS: Independent PAST MEDICAL HISTORY Diagnosis [...] tx for drug/alcohol abuse in the past. oxyCODONE IR (ROXICODONE) 5 mg immediate release tablet, Take 5 mg by mouth every 6 hours as neededfor pain., Disp: , Rfl: 0, 03/30/2025 Evening promethazine (PHENERGAN) 50 mg tab(s), Take 50 mg by mouth every 6 hours as needed for nausea/vomiting., Disp: , Rfl: , 03/30/2025 Evening rizatriptan (MAXALT) 10 mg tablet, Take 10 mg by mouth as needed for migraine headache (see administration instructions). May repeat dose after 2 hours if needed. Maximum daily dose is 30 mg per day., Disp: , Rfl: , Past Week suzetrigine (JOURNAVX) 50 mg tablet, Trial Rx: Take 1 tab PO daily for acute pain, Disp: 30 tablet,Rfl: 0, 03/30/2025 Evening guar gum (NUTRISOURCE FIBER) packet, Take 1 Packet by mouth two times a day., Disp: 60 Packet, Rfl:11, Past Week zinc oxide-cod liver oil (DESITIN) 40 % paste, Apply to affected area around J tube as directed., Disp: 120 g, Rfl: 1, 03/30/2025 ondansetron orally disintegrating (ZOFRAN ODT) 8 mg disintegrating tablet, Take 1 tablet by mouth every 8 hours as needed for nausea/vomiting., Disp: 30 tablet, Rfl: 1, 03/30/2025 Evening acetaminophen (TYLENOL) 650 mg/20.3 mL soln, Take 31.2 mL by mouth every 6 hours. Do not exceed 5 doses in 24 hours., Disp: 500 mL, Rfl: 0, 03/30/2025 Morning tiZANidine (ZANAFLEX) 4 mg tablet, Take 1 tablet by mouth every 6 hours., Disp: 10 tablet, Rfl: 0, 03/30/2025 Evening diphenhydrAMINE HCL (BENADRYL ALLERGY) 50 mg tablet, Take 50 mg by mouth once daily as needed for cold/allergy symptoms., Disp: , Rfl: , Unknown traZODone (DESYREL) 100 mg tablet, Take 100 mg by mouth daily at bedtime., Disp: , Rfl: gabapentin (NEURONTIN) 300 mg capsule, Take 1,200 mg by mouth three times a day., Disp: , Rfl: naloxone 4 mg/actuation nasal spray (NARCAN), 1 spray by nasal (alternating) route. Use 1 spray in one nostril as needed for overdose. May repeat every 2 to 3 min in alternating nostrils until medical assistance is available, Disp: , Rfl: zajzxg-nhqnplqo-sbksojt (CREON) 36,000-114,000- 180,000 unit delayed release capsule, Take 2 capsules by mouth three times a day with meals. 1 with snacks, Disp: 600 capsule, Rfl: 1, 03/28/2025 memantine (NAMENDA) 10 mg tablet, Take 1 tablet by mouth two times a day., Disp: 60 tablet, Rfl: 1,03/28/2025 nutritional supplement (PEPTAMEN INTENSE VHP) 0.09 gram- 1 kcal/mL, Via J tube: Peptamen Intense VHP Continuous/cycled pump infusion of 105 mL/hr x 12 hours (1250 mL total/day) via Kangaroo Dung pump. water flush of 50 mL per 1 hour via feed and flush bag, Disp: 29403 mL, Rfl: 11 Miscellaneous Medical Supply, 1 each as needed. Needs AMT 18 Fr x 2.5 cm low profile balloon J tube- ENFit, Disp: 1 each, Rfl: 3 Miscellaneous Medical Supply kit, 1 Each every 4 months. [employer] MiniOne low profile balloon gastrostomy button with ENFit extension set Size: 18 Fr x 2.5 cm Ref # : [id number] Change tube every 4 months., Disp: 1 Kit, Rfl: 5 Miscellaneous Medical Supply, 1 Each one time a week. [employer] 12 inch right angle connection feeding extension set Ref #: [id number] For use with AMT MiniOne low profile balloon jejunostomy feeding tube. Change the extension set weekly, Disp: 1 Each, Rfl: 11 nutritional supplement (PROSOURCE NO CARB) 15-60 gram-kcal/30 mL lipk, 1 Package by ORAL/FEEDING TUBE route two times a day., Disp: 60 Packet, Rfl: 5 Miscellaneous Medical Supply, 1 Each one time a week. would like one pack per week of the [employer] purple gently bath wipes, Disp: 4 Each, Rfl: 5 Colestipol HCl (COLESTID) 5 gram granules, Take 5 g by mouth two times a day., Disp: 180 Packet, Rfl: 0, 03/28/2025 nutritional supplement (PEPTAMEN 1.5) 0.068 gram- 1.5 kcal/mL, Peptamen 1.5 or equal formula via J tube goa; rate 65 mL/hour x 12 hours water flush 60 mL, 6x/day, Disp: 94171 mL, Rfl: 3 enteral pump access.hydrolysis (RELIZORB) crtg, One cartridge daily via J tube, Disp: 30 Each, Rfl:[address] (PROTONIX) 40 mg tablet, Take 1 tablet by mouth two times a day before meals, Disp:60 tablet, Rfl: 0, 03/28/2025 Miscellaneous Medical Supply, 1 Each once daily. please provide pt with flush bags for her EN needs., Disp: 30 Each, Rfl: 11 Miscellaneous Medical Supply, 1 Each as needed. please provide pt with EN pump for EN needs, supplynew one as needed, Disp: 1 Each, Rfl: 2 methocarbamol (ROBAXIN) 750 mg tablet, Take 1 tablet by mouth three times a day as needed (for muscle spasm)., Disp: 20 tablet, Rfl: 0, 03/28/2025 Walker misc, 1 Units once daily., Disp: 1 Each, Rfl: 0 MULTIVITAMIN-FERROUS FUMARATE-FOLIC ACID 18 MG-400 MCG TABLET, Take 1 tablet by mouth once daily., Disp: 30 tablet, Rfl: 0, 03/28/2025 pyridoxine, vitamin B6, (VITAMIN B6) 50 mg tablet, Take 1 tablet by mouth once daily., Disp: 30 tablet, Rfl: 0, 03/28/2025 thiamine (VITAMIN B1) 100 mg tablet, Take 1 tablet by mouth once daily., Disp: 30 tablet, Rfl: 0, 03/28/2025 cholecalciferol, Vitamin D3, (VITAMIN D3) 1,250 mcg (50,000 unit) cap capsule, Take 1 capsule by mouth five times a week., Disp: , Rfl: , 03/28/2025 levothyroxine (SYNTHROID) 50 mcg tablet, Take 50 mcg by mouth., Disp: , Rfl: , 03/28/2025 cyanocobalamin, vitamin B-12, (B-12 COMPLIANCE) 1,000 mcg/mL kit, 1 mL by INJECTION(UNSPECIFIED PARENTERAL ROUTES) route one time a week., Disp: , Rfl: , 03/25/2025 ALPRAZolam (XANAX) 0.5 mg tablet, Take 0.5 mg by mouth at bedtime as needed., Disp: , Rfl: , Unknown Current Facility-Administered Medications Medication Dose Route Frequency NaCl 0.9% iv flush bag 20 mL INTRAVENOUS PRN ALPRAZolam 0.5 mg tab(s) (XANAX) 0.5 mg ORAL AT BEDTIME PRN colestipol 5 g tab(s) (COLESTID) 5 g ORAL BID levothyroxine 50 mcg tab(s) (SYNTHROID) 50 mcg ORAL DAILY (6 AM) qcpxhe-urhvruff-odmkyzu 3 capsule cap(s) (CREON 24) 3 capsule ORAL TID w MEALS memantine 10 mg tab(s) (NAMENDA) 10 mg ORAL BID methocarbamol 750 mg tab(s) (ROBAXIN) 750 mg ORAL TID PRN ondansetron 4 mg tab(s) (ZOFRAN) 4 mg ORAL q 6 H PRN Or ondansetron (PF) 4 mg injection (ZOFRAN) 4 mg INTRAVENOUS q 6 H PRN acetaminophen 650 mg tab(s) (TYLENOL) 650 mg ORAL q 6 H PRN diphenhydrAMINE 50 mg injection (BENADRYL) 50 mg INTRAVENOUS q 6 H PRN gabapentin 900 mg cap(s) (NEURONTIN) 900 mg ORAL q 8 H zinc oxide ointment 20% TOPICAL PRN prochlorperazine 10 mg tab(s) (COMPAZINE) 10 mg ORAL q 8 H PRN azithromycin 500 mg tab(s) (ZITHROMAX) 500 mg ORAL DAILY pantoprazole DR 40 mg tab(s) (PROTONIX) 40 mg ORAL DAILY (6 AM) oxyCODONE IR 5-10 mg tab(s) (ROXICODONE) 5-10 mg ORAL q 4 H PRN sucralfate 1 g tab(s) (CARAFATE) 1 g ORAL BID AC Allergies As of Date: 03/30/2025 Allergen Noted Reaction TRAMADOL 06/26/2022 Hives ADHESIVE TAPE (ROSINS) 09/11/2008 Rash, Swelling, and Itching NSAIDS (NON-STEROIDAL ANTI-INFLAM*07/29/2022 Contraindication-Medical Surgical PAXIL [PAROXETINE] 08/08/2022 Intolerance SCOPOLAMINE 07/29/2022 Other: See Comments Fully Assessed 03/30/2025 COMPLETE REVIEW OF SYSTEMS: PAIN ASSESSMENT: HISTORY OF CHRONIC PAIN OR CURRENTLY BEING TREATED FOR A CHRONIC PAIN CONDITION: Yes GENERAL: Positive for See HPI HEENT: Negative for frequent or significant headaches, No changes in hearing or vision, no nose bleeds or other nasal problems NECK: Negative for lumps, goiter, pain and [...] Negative for lesions, rash, and itching PSYCH: see hpi HEMATOLOGY/LYMPHOLOGY: Negative for prolonged bleeding, bruising easily or swollen nodes ENDOCRINE: Negative for cold or heat intolerance, polyuria, polydipsia and goiter NEURO: No history of headaches, syncope, paralysis, seizures or tremors Objective PHYSICAL EXAM: Physical Exam Performed: GENERAL: Alert, no distress, cooperative, Obese SKIN: Skin color, texture, turgor normal. No rashes or lesions. HEAD/SINUSES: No significant findings EYES: PERRLA, EOMI NOSE: Nares normal. Septum midline. OROPHARYNX: Lips, mucosa, and tongue normal. Teeth and gums normal. Oropharynx normal. NECK: No jugulovenous distention, No carotid bruits, Carotid pulse normal contour, Supple BACK: Exam deferred LUNGS: Lungs clear to auscultation, Good diaphragmatic excursion CARDIAC: Normal S1 and S2; no rubs, murmurs, or gallops ABDOMEN: Abdomen soft, voluntary guarding to extremely light palpation, BS normal, No masses or organomegaly EXTREMITIES: Extremities normal, no deformities, edema, clubbing or skin discoloration. Good capillary refill., No ulcers NEURO: Gait normal. Reflexes normal and symmetric. Sensation grossly intact, Cranial nerves II-XII intact PULSES: 2+ radial, 2+ carotid BP 97/54 Pulse 69 Temp (Src) 98.2 (Oral) Resp 18 Ht 5' 10 (1.78m) Wt 203 lb 11.3 oz (92.4kg) SpO2 93% BMI 29.23 kg/(m^2). DATA: Diagnostic tests reviewed for today's visit: Most recent labs and imaging results. Impression/Recommendations Principal Problem: Campylobacter diarrhea (POA: Yes) Acute on chronic pain Assessment & Plan: 49 year old female with for past medical history of gastric sleeve (2011) later converted to gastric bypass (2021), on enteral feeding since 2022 presented to the emergency department complaining of nausea, vomiting, diarrhea and abdominal pain on 03/30. See HPI for full details No leukocytosis Lfts wnl No Kendrick/electrolyte derangements +campylobacter on 03/31 (on 3 day course azithromycin) Diarrhea improved compared to yesterday Ordered mac/cheese and carrots for lunch Abd soft, good bowel sounds, voluntary guarding on assessment. Requesting stronger pain meds at time of consult although extremely comfortable appearing during interview Plan: -modify to GIS diet -finish abx course -pt to call [facility] tomorrow to discuss if she can still have J tube placed vs rescheduling (she knows to remain NPO in the morning until speaking with them) -no indication for repeat EGD -added Carafate BID as patient asked for a medicine to help coat her stomach -daily PPI -pain control per primary team GI will sign off Case discussed with Dr. Teran Active Problems: S/P bariatric surgery (POA: Yes) Jejunostomy malfunction (HCC) (POA: Yes) Intractable nausea and vomiting (POA: Yes) Assessment & Plan: resolved Resolved Problems: * No resolved hospital problems. * SIGNATURE: Linda Tsai APRN.CNP PATIENT NAME: Melina Taveras DATE: April 02, 2025 TIME: 2:50 PM PAGER: [phone] * Radha Edwards MD - 03/31/2025 2:09 AM EDT ACUTE CARE SURGERY CONSULT SERVICE DATE: 03/31/2025 SERVICE TIME: 2:30AM ADMIT DATE: 03/30/2025 LOS: 0 REQUESTING PHYSICIAN: Buddy Ramos DO REASON FOR CONSULT Decreased PO, N/V, Diarrhea PRIMARY CARE PHYSICIAN: Shlomo Hu II, MD, MD ATTENDING SURGEON: Sanford March MD Subjective HPI: Melina Taveras is a 49 year old female with history of gastric sleeve (2011), conversion to gastric bypass (2021) who has been on enteral feeding since 2022 who presents with complaint of abdominal pain, nausea, vomiting, and diarrhea. Patient states she had dinner around 6 days prior to arrival. She states shortly after that she started to develop generalized abdominal pain which she says is severe as well as nausea with multiple of the nonbloody nonbilious emesis which has been near daily. She admits taking Zofran and promethazine at home with no relief. She also admits profuse watery diarrhea with multiple episodes every day. She denies any hematochezia. She also states that her J-tube did fall out around 6 days ago and she has been having some greenish drainage which has been burning the her skin around her ostomy site.She denies any dysuria or hematuria. Denies any fever or chills. Denies any chest pain or shortnessof breath. She states she feels like she has a C. difficile infection no other denies any recent antibiotics. Her Jejunostomy site on exam has some mild surrounding erythema, with no abscess or purulence. She has a planned laparoscopic jejunostomy for replacement of J- tube planned with Dr. Yuan Miller on 04/03/2025 at [facility]. Relevant surgeries: Laparoscopic revision of gastrojejunostomy Diagnostic laparoscopy Laparoscopic jejunostomy Laparoscopic Priscila limb lengthening Laparoscopic take down of jejunostomy with recreation of 30cm priscila-limb feeding tube 20cm distal tothe prior J-tube PAST MEDICAL HISTORY Diagnosis Date Breast mass [...] tx for drug/alcohol abuse in the past. (Not in a hospital admission) Current Facility-Administered Medications Medication Dose Route Frequency iv contrast (radiology procedure) INTRAVENOUS DIRECTED PRN NaCl 0.9% 1,000 mL iv bolus 1,000 mL INTRAVENOUS ONCE NaCl 0.9% iv flush bag 20 mL INTRAVENOUS PRN potassium chloride iv piggyback 20 mEq/100 mL 20 mEq INTRAVENOUS ONCE ALLERGIES Allergen Reactions Tramadol Hives Adhesive Tape (Serina* Rash, Swelling, Itching Nsaids (Non-Steroid* Contraindication-Medical Surgical S/p priscila en y gastric bypass Paxil [Paroxetine] Intolerance Gi upset Scopolamine Other: See Comments Blurred vision COMPLETE REVIEW OF SYSTEMS: General: No weight loss, malaise, fever or chills RESPIRATORY: Negative for cough, wheezing, or shortness of breath CARDIOVASCULAR: Negative for chest pain, leg swelling or palpitations GI: Positive for n/v, abdominal pain Objective PHYSICAL EXAM: GENERAL: Alert, Mild Distress, Cooperative LUNGS: Non-labored, good diaphragmatic effort CARDIAC: Regular rate and rhythm ABDOMEN: Soft, non-tender, non-distended, jejunostomy with mild surrounding erythema. BP 116/62 Pulse 70 Temp (Src) 97.7 (Oral) Resp 18 Ht 5' 8 (1.73m) Wt 211 lb (95.7kg) SpO2 100% BMI 32.09 kg/(m^2). O2 Therapy: Room Air LABORATORY RESULTS: Recent Labs 03/30/25 1805 WBC 7.88 HB 12.9 HCT 38.6 PLT 424* NA 142 K 3.4* BUN 7 CREAT 0.81 GLUC 100* CA 9.0 ALB 3.9 ALT 11 AST 12* ALKPHOS 126* TBILI 0.3 LIPASE 10* DATA: Diagnostic tests reviewed for today's visit: Most recent labs and imaging results. CT ABD/PEL W IVCON Final Result IMPRESSION: 1. Appendix appears unremarkable and no bowel obstruction or free air. 2. Details above. Content Management Specialist: ZACHERY Transcribe Date/Time: Mar 30 2025 10:26P Dictated by : MAYRA MOFFETT MD This examination was interpreted and the report reviewed and electronically signed by: MAYRA MOFFETT MD on Mar 30 2025 10:35PM EST Impression/Recommendations IMPRESSION AND RECOMMENDATIONS Impression: Melina Taveras is a 49 year old female with history of gastric sleeve (2011), conversion to gastric bypass (2021) who has been on enteral feeding since 2022 who presents with complaint of abdominal pain, nausea, vomiting, and diarrhea. Recommendations: - Admit to medicine - No acute surgical intervention required at this time. - Surgery will follow. SIGNATURE: Radha Edwards MD PATIENT NAME: Melina Taveras DATE: March 31, 2025 TIME: 2:10 AM Cosigned by Sanford March MD at 04/05/2025 9:52 AM EDT Associated attestation - Sanford March MD - 04/05/2025 9:52 AM EDT I reviewed testing, discussed with the resident and agree with resident's plan as documented in theresident's note. Can follow up with Dr. Miller for tube replacement, or IR if here. Sanford March MD documented in this encounter Nursing Notes * Tiffany Allred RN - 04/02/2025 10:03 PM EDT 2201 Paged [phone] 5Pav 49-1 Taveras, L. Pt w/ dry, sore throat. Requesting lozenge. Thank you Tiffany [place] [phone] See Orders Az * Tiffany Allred RN - 04/02/2025 4:34 AM EDT 0433 Paged [phone] 5Pav 49 Taveras, J. Pt IV infiltrated again, dose of Diluadid appears third spaced.Can another dose be put in. Thank you Haylee [phone] See Orders Az * Tiffany Allred RN - 04/02/2025 1:57 AM EDT 0157 Paged [phone] 5Pav 49-1 Taveras, J. Pt given IV Benadryl, IV infiltrated and suspect Pt did not receive full dose. Are you able to put in for another dose? Thank you Haylee [phone] See Orders Az * Tiffany Allred RN - 04/02/2025 12:11 AM EDT 2301 Spoke with lab re: STAT sepsis lactate, aware of need for lab draw. 10 Spoke with lab: aware STAT sepsis lactate draw needed. 14 Lab collection changed to lab . * Tiffany Allred RN - 04/01/2025 8:11 PM EDT 2010 Paged [phone]: 5Pav 49-1 Cruz Taveras Pt requesting shower. Is this appropriate, if so please place nursing instruction. Thank you TiffanyRBari [phone] Paged [phone]: 5Pav 49-1 Cruz Taveras Pt requesting shower. Is this appropriate, if so please place nursing instruction. Thank you TiffanyRBari [phone] Paged [phone] 5Pav 49-1 Cruz Taveras Pt asking for early one time dose of Dilaudid. Pain is 8/10-abdomen. And requesting order for shower. Thank you Haylee [phone] documented in this encounter ED Notes * Irene Rebollar RN - 03/31/2025 7:08 AM EDT Assumed care from PIETRO Corcoran * Buddy Ramos DO - 03/31/2025 12:44 AM EDT ED Provider Note Patient Name: Melina Taveras : 1975 SERVICE DATE: 03/30/25 History Patient presents with: Abdominal Pain: Right mid abd pain, pt unable to take small sips of water Tube Feeding Assessment: Feeding Tube fell out last week, was suppose to get it placed again Thursdaybut now has green drainage at site Diarrhea Nausea 49-year-old female with history of gastric sleeve (2011), conversion to gastric bypass (2021) who has been on enteral feeding since 2022 who presents with complaint of abdominal pain, nausea, vomiting, and diarrhea. Patient states she had dinner around 6 days prior to arrival. She states shortly after that she started to develop generalized abdominal pain which she says is severe as well as nausea with multiple of the nonbloody nonbilious emesis which has been near daily. She admits taking Zofran and promethazine at home with no relief. She also admits profuse watery diarrhea with multiple episodes every day. She denies any hematochezia. She also states that her J-tube did fall out around 6days ago and she has been having some greenish drainage which has been burning the her skin around her ostomy site. She denies any dysuria or hematuria. Denies any fever or chills. Denies any chest pain or shortness of breath. She states she feels like she has a C. difficile infection no other denies any recent antibiotics. History provided by: Patient PAST MEDICAL HISTORY Diagnosis Date Breast mass [...] Vaping Use Vaping status: Never Used Substance and Sexual Activity Alcohol use: Not Currently Drug use: No Comment: denies tx for drug/alcohol abuse in the past. Sexual activity: Not on file Comment: not asked ALLERGIES Allergen Reactions Tramadol Hives Adhesive Tape (Serina* Rash, Swelling, Itching Nsaids (Non-Steroid* Contraindication-Medical Surgical S/p priscila en y gastric bypass Paxil [Paroxetine] Intolerance Gi upset Scopolamine Other: See Comments Blurred vision Review of Systems Physical Exam Vitals BP Pulse Temp Temp src Resp SpO2 Weight Height 03/30/25 1703 03/30/25 1703 03/30/25 1703 03/30/25 2351 03/30/25 2351 03/30/25 1703 03/30/25 1702 03/30/25 1702 127/88 82 36.9 °C (98.4 °F) Oral 18 98 % 95.7 kg (211 lb) 1.727 m (5' 8 ) Physical Exam Vitals and nursing note reviewed. Constitutional: General: She is in acute distress. Appearance: Normal appearance. She is obese. HENT: Head: Normocephalic and atraumatic. Right Ear: Tympanic membrane, ear canal and external ear normal. Left Ear: Tympanic membrane, ear canal and external ear normal. Nose: Nose normal. Mouth/Throat: Mouth: Mucous membranes are moist. Pharynx: Oropharynx is clear. Eyes: Extraocular Movements: Extraocular movements intact. Conjunctiva/sclera: Conjunctivae normal. Pupils: Pupils are equal, round, and reactive to light. Cardiovascular: Rate and Rhythm: Normal rate and regular rhythm. Pulses: Normal pulses. Heart sounds: Normal heart sounds. Pulmonary: Effort: Pulmonary effort is normal. Breath sounds: Normal breath sounds. Abdominal: General: Abdomen is flat. Bowel sounds are normal. Palpations: Abdomen is soft. Tenderness: There is abdominal tenderness. Comments: Skin irritation noticed around her left upper quadrant ostomy site with biliary and gastric juices discharging. Moderate generalized abdominal tenderness to light palpation. Musculoskeletal: General: Normal range of motion. Cervical back: Normal range of motion and neck supple. Skin: General: Skin is warm and dry. Capillary Refill: Capillary refill takes less than 2 seconds. Neurological: General: No focal deficit present. Mental Status: She is alert and oriented to person, place, and time. Mental status is at baseline. Psychiatric: Mood and Affect: Mood normal. Behavior: Behavior normal. Thought Content: Thought content normal. Judgment: Judgment normal. Diagnostic Testing ED Labs Ordered and Reviewed COMPLETE BLOOD COUNT - Abnormal; Notable for the following components: Result Value Ref Range Platelet Count 424 (*) 150 - 400 k/uL All other components within normal limits COMPREHENSIVE METABOLIC PANEL - Abnormal; Notable for the following components: Alkaline Phosphatase 126 (*) 34 - 123 U/L AST 12 (*) 13 - 35 U/L Glucose 100 (*) 74 - 99 mg/dL Potassium 3.4 (*) 3.7 - 5.1 mmol/L Chloride 108 (*) 98 - 107 mmol/L All other components within normal limits LIPASE - Abnormal; Notable for the following components: Lipase 10 (*) 16 - 61 U/L All other components within normal limits UA DIP,URINE HCG(ED-POC) - Abnormal; Notable for the following components: Urine hCG (POCT) Positive (*) Negative All other components within normal limits HCG QUANTITATIVE - Normal HCG URINE - ED(POC) URINALYSIS (WITH MICROSCOPIC) WITH CULTURE IF INDICATED Procedures ED Course / Clinical Impression Clinical Impressions as of 03/31/25 0235 Nausea and vomiting, unspecified vomiting type Diarrhea, unspecified type Hypokalemia Abdominal pain, generalized MDM / Disposition / Plan Patient was initially hemodynamically stable and afebrile. She does have a G- tube that was reportedly displaced and on my examination she does have some gastric juice output and biliary output from her ostomy site. Some mild irritation noted no concern for infection. She is tender throughout. Differ ential does include presumptive to colitis, viscus perforation, gastroenteritis, acute viral syndrome. Urine hCG was positive although patient has had a partial hysterectomy and hCG quant was negative low suspicion for active unlikely false positive. No leukocytosis or anemia noted on labwork. Mild hypokalemia 3.4 with otherwise normal renal function. Lipase and LFTs normal. CT scan abdomen pelvis was completed which without any significant acute findings. She was given 1 L of normalsaline as well as Reglan and Dilaudid for pain control and had minimal relief. Still unable to tolerate any oral intake. I did consult to general surgery team who did evaluate the patient at bedside and stated they will consult and follow along while she is admitted to the hospital. She will be admitted to the medicine team for further management of her intractable nausea and vomiting. This couldbe secondary to a viral source and possibly self-limiting. History and Record Review Clinical information obtained from an independent historian. History obtained from or confirmed by:see ED course. External record(s) reviewed: see ED Course. Management Management of the patient was discussed with:admitting team and see ED course I performed an independent interpretation of the following:see ED course Radiology Reports CT ABD/PEL W IVCON Final Result IMPRESSION: 1. Appendix appears unremarkable and no bowel obstruction or free air. 2. Details above. Content Management Specialist: PSCB Transcribe Date/Time: Mar 30 2025 10:26P Dictated by : MAYRA MOFFETT MD This examination was interpreted and the report reviewed and electronically signed by: MAYRA MOFFETT MD on Mar 30 2025 10:35PM EST Meds Given During Visit ED Medication Administration from 03/30/2025 1649 to 03/31/2025 0236 Date/Time Order Dose Route Action 03/31/2025 0116 EDT NaCl 0.9% 1,000 mL iv bolus 1,000 mL INTRAVENOUS New Bag/Syringe/Bottle 03/31/2025 0116 EDT metoclopramide HCl 10 mg injection (REGLAN) 10 mg INTRAVENOUS Given 03/31/2025 0116 EDT HYDROmorphone 0.5 mg injection (DILAUDID) 0.5 mg INTRAVENOUS Given Disposition The patient was admitted. Counseled patient regarding lab results, radiology results and suspected diagnosis. Admitted to Regular Nursing Floor. SIGNATURE: Buddy Ramos DO - BUDDY RAMOS 03/31/25 0237 * Mary Escamilla DO - 03/30/2025 5:00 PM EDT ED TRIAGE PROVIDER NOTE Patient Name: Melina Taveras Service Date: 03/30/25 BRIEF HPI: This is a 49 year old female who presents to the ED with: abdominal pain, RUQ, unable to tolerate PO. Had a feeding tube however it fell out on . Now having green drainage from the site. Excessive diarrhea. Pain with eating. Intermittent fever. BRIEF EXAM: NAD Awake and Alert Non labored breathing INITIAL WORKUP AND DECISION MAKING: Orders Placed This Encounter CT ABD/PEL W IVCON CBC CMP Lipase Urinalysis w Microscopic, reflex Culture HCG Urine (ED-POC) iv contrast (radiology procedure) SIGNATURE: Mary Escamilla DO documented in this encounter Miscellaneous Notes * Hospital Course - Hernandez Caban MD - 04/04/2025 2:32 PM EDT 49 year old female past medical history of gastric sleeve (2011) later converted to gastric bypass (2021), on enteral feeding since 2022 presented to the emergency department complaining of nausea, vomiting, diarrhea and abdominal pain. States that she suddenly started having nausea, vomiting and diarrhea about a week ago. States that she went to a birthday [employer] but only ate bread sticks prior to developing the symptoms. States that she has been having 8-10 episodes of vomiting and profuse diarrhea since then though she does not appear very dehydrated. States that she has not been able to keep anything down except for small sips of water and soup. States that J-tube fell out on Thursday last week. She called her surgeon's office who scheduled her for J-tube placement and is scheduled on 04/03, however due to worsening symptoms she presented to the ED. States that she had fever of 102 yesterday but denies any night sweats or chills. She denies shortness of breath, cough, chest pain, palpitations, dizziness, urinary complaints. Upon arrival to ED, patient is in moderate distress from abdominal pain. She is otherwise seeminglystable, afebrile. Labs essentially normal except for hypokalemia potassium 3.4. CT abdomen showed no acute pathology. General surgery was consulted in the ED who will be on consult. Patient will be admitted for management of symptoms and possible jejunostomy tube placement. * Plan of Care - Speedy Donald MD - 04/01/2025 9:41 PM EDT Communicated that would hold off on shower tonight since patient is having abd pain requiring additional doses of dilaudid. * Plan of Care - Adarsh Dumont RPh - 03/31/2025 8:15 AM EDT PHARMACY MEDICATION REVIEW Patient Name: Melina Taveras : 1975 The following medications were updated within the [facility] medication list: Medications ADDED to [facility] medication list Benadryl 50 mg tablet PRN daily for allergies Oxycodone 5 mg tablet every 6 hours PRN pain Promethazine 50 mg tablet every 6 hours as needed for nausea and vomiting Rizatriptan 10 mg tablet as needed for migraine Medications CHANGED on [facility] medication list Gabapentin increased from 900 mg three times daily to 1200 mg three times daily Trazodone decreased from 200 mg nightly to 100 mg nightly Medications REMOVED from [facility] medication list Venlafaxine 75 mg tablet - patient no longer taking The below information represents the best possible medication history: Yes Medication history completed by: Pharmacist: Adarsh Dumont RPh Source of history: Patient: Reliability of source: Patient reports that many of her medications have been increased lately but is unsure of which medications and the new dosages. Medication nonadherence identified: Patient last filled oxycodone 5 mg prescription on 11/18/2024 for a quantity of 20 tablets but reports taking a total dose of oxycodone 10 mg for severe pain as needed. Patient also mentioned taking alprazolam 0.5 mg tablets as needed nightly for anxiety which was last filled for a quantity of 30 tablets on 09/15/2023. Reconciliation completed: Yes Completed by: Adarsh Dumont RPh All [facility] medications addressed by LIP Patient interested in Bedside Delivery Services or using [facility] Pharmacy at discharge? Unable to assess Preferred outpatient pharmacy: [facility] - [place] [address] - [address] - [phone] Allergies: Tramadol Hives Adhesive Tape (Serian* Rash, Swelling, Itching Nsaids (Non-Steroid* Contraindication-Medical Surgical Comment:S/p priscila en y gastric bypass Paxil [Paroxetine] Intolerance Comment:Gi upset Scopolamine Other: See Comments Comment:Blurred vision Prior to Admission Medications Prescriptions Last Dose Informant Patient Reported? Taking? ALPRAZolam (XANAX) 0.5 mg tablet Unknown Yes No Sig: Take 0.5 mg by mouth at bedtime as needed. Colestipol HCl (COLESTID) 5 gram granules 03/28/2025 No No Sig: Take 5 g by mouth two times a day. MULTIVITAMIN-FERROUS FUMARATE-FOLIC ACID 18 MG-400 MCG TABLET 03/28/2025 No No Sig: Take 1 tablet by mouth once daily. Miscellaneous Medical Supply No No Si Each once daily. please provide pt with flush bags for her EN needs. Miscellaneous Medical Supply No No Si Each as needed. please provide pt with EN pump for EN needs, supply new one as needed Miscellaneous Medical Supply No No Si Each one time a week. would like one pack per week of the Medline purple gently bath wipes Miscellaneous Medical Supply No No Si Each one time a week. I-Tech 12 inch right angle connection feeding extension set Ref #: [id number] For use with AMT MiniOne low profile balloon jejunostomy feeding tube. Change the extension set weekly Miscellaneous Medical Supply No No Si each as needed. Needs AMT 18 Fr x 2.5 cm low profile balloon J tube - ENFit Miscellaneous Medical Supply kit No No Si Each every 4 months. I-Tech MiniOne low profile balloon gastrostomy button with ENFit extension set Size: 18 Fr x 2.5 cm Ref # : [id number] Change tube every 4 months. Walker mis No No Si Units once daily. acetaminophen (TYLENOL) 650 mg/20.3 mL soln 03/30/2025 Morning No Yes Sig: Take 31.2 mL by mouth every 6 hours. Do not exceed 5 doses in 24 hours. cholecalciferol, Vitamin D3, (VITAMIN D3) 1,250 mcg (50,000 unit) cap capsule 03/28/2025 No No Sig: Take 1 capsule by mouth five times a week. cyanocobalamin, vitamin B-12, (B-12 COMPLIANCE) 1,000 mcg/mL kit 03/25/2025 Yes No Si mL by INJECTION(UNSPECIFIED PARENTERAL ROUTES) route one time a week. diphenhydrAMINE HCL (BENADRYL ALLERGY) 50 mg tablet Unknown Yes No Sig: Take 50 mg by mouth once daily as needed for cold/allergy symptoms. enteral pump access.hydrolysis (RELIZORB) crtg No No Sig: One cartridge daily via J tube gabapentin (NEURONTIN) 600 mg tablet 03/30/2025 Evening No Yes Sig: Dose clarification: Take gabapentin 300mg + 600mg PO TID. Do not adjust dose upward without written Rx instructions from your physician. See attached Rx. Patient taking differently: Take 1,200 mg by mouth three times a day. guar gum (NUTRISOURCE FIBER) packet Past Week No Yes Sig: Take 1 Packet by mouth two times a day. levothyroxine (SYNTHROID) 50 mcg tablet 03/28/2025 Yes No Sig: Take 50 mcg by mouth. xdusxk-iwruwirs-risatyf (CREON) 36,000-114,000- 180,000 unit delayed release capsule 03/28/2025 No No Sig: Take 2 capsules by mouth three times a day with meals. 1 with snacks memantine (NAMENDA) 10 mg tablet 03/28/2025 No No Sig: Take 1 tablet by mouth two times a day. methocarbamol (ROBAXIN) 750 mg tablet 03/28/2025 No No Sig: Take 1 tablet by mouth three times a day as needed (for muscle spasm). nutritional supplement (PEPTAMEN 1.5) 0.068 gram- 1.5 kcal/mL No No Sig: Peptamen 1.5 or equal formula via J tube goa; rate 65 mL/hour x 12 hours water flush 60 mL, 6x/day nutritional supplement (PEPTAMEN INTENSE VHP) 0.09 gram- 1 kcal/mL No No Sig: Via J tube: Peptamen Intense VHP Continuous/cycled pump infusion of 105 mL/hr x 12 hours (1250mL total/day) via KangaroZova pump. water flush of 50 mL per 1 hour via feed and flush bag nutritional supplement (PROSOURCE NO CARB) 15-60 gram-kcal/30 mL lipk No No Si Package by ORAL/FEEDING TUBE route two times a day. ondansetron orally disintegrating (ZOFRAN ODT) 8 mg disintegrating tablet 03/30/2025 Evening No Yes Sig: Take 1 tablet by mouth every 8 hours as needed for nausea/vomiting. oxyCODONE IR (ROXICODONE) 10 mg tab 03/30/2025 Evening Yes Yes Sig: Take 10 mg by mouth every 6 hours as needed for pain. pantoprazole DR (PROTONIX) 40 mg tablet 03/28/2025 No No Sig: Take 1 tablet by mouth two times a day before meals promethazine (PHENERGAN) 50 mg tab(s) 03/30/2025 Evening Yes Yes Sig: Take 50 mg by mouth every 6 hours as needed for nausea/vomiting. pyridoxine, vitamin B6, (VITAMIN B6) 50 mg tablet 03/28/2025 No No Sig: Take 1 tablet by mouth once daily. rizatriptan (MAXALT) 10 mg tablet Past Week Yes Yes Sig: Take 10 mg by mouth as needed for migraine headache (see administration instructions). May repeat dose after 2 hours if needed. Maximum daily dose is 30 mg per day. suzetrigine (JOURNAVX) 50 mg tablet 03/30/2025 Evening No Yes Sig: Trial Rx: Take 1 tab PO daily for acute pain thiamine (VITAMIN B1) 100 mg tablet 03/28/2025 No No Sig: Take 1 tablet by mouth once daily. tiZANidine (ZANAFLEX) 4 mg tablet 03/30/2025 Evening No Yes Sig: Take 1 tablet by mouth every 6 hours. traZODone (DESYREL) 100 mg tablet Past Week No Yes Si mg at bedtime Patient taking differently: Take 100 mg by mouth daily at bedtime. zinc oxide-cod liver oil (DESITIN) 40 % paste 03/30/2025 No Yes Sig: Apply to affected area around J tube as directed. 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 She has a planned laparoscopic jejunostomy for replacement ofJ-tube planned with Dr. Yuan Miller on 04/03/2025 at [facility]. Given patient's systemic symptoms and generalized abdominal pain, the patient most likely has enteritis. There are no clinical reasons to think prior surgeries are contributing to symptoms. - No acute intervention required General surgery will sign off at this time. Please feel free to call back with questions or concerns Some elements of this note have been copied forward from previous progress notes but all documentation has been reviewed by me and updated where appropriate to reflect the patient's evaluation today,and ongoing plan of care. Anna Watt MD General Surgery PGY-2 [place] (General, Trauma: Chuy Lemus Baier, Bar[place]): [phone] [place] (General, HPB, Bariatrics: Bashir March Naffouje): [phone] Pediatrics: [id number] Blue (Colorectal): [phone] Red (Vascular): [phone] New consults + nights/weekends: [phone] * Allied Health - Edmond Berry CT - 03/30/2025 8:42 PM EDT Radiology Service Progress Note DATE OF SERVICE: March 30, 2025 TIME: 8:42 PM PATIENT IDENTITY VERIFICATION COMPLETED USING TWO (2) STANDARD IDENTIFIERS: Name and Date of confirmed by patient verbally. FALL SCREENING: Has the patient had 2 falls in the last year or 1 fall with injury or currently using an Ambulatory Assistive Device (Walker, Cane, Wheelchair, Crutches, etc.)? No PATIENT GENDER DATA: Assigned female at . status: : No status:NO. PATIENT RELEVANT IMPLANT DATA REVIEWED: Not Applicable PATIENT PRESENTS WITH AN IMPLANTABLE OR ATTACHED COMMERCIAL ROOFING ESTIMATOR: No ALLERGIES: Reviewed and unchanged CONTRAST ALLERGY: NO. EXAM: CT -CONTRAST INDUCED NEPHROPATHY RISK FACTORS: Not applicable CREATININE: Creatinine Date Value Ref Range Status 03/30/2025 0.81 0.58 - 0.96 mg/dL Final 12/08/2024 0.55 (L) 0.58 - 0.96 mg/dL Final 10/27/2024 0.83 0.58 - 0.96 mg/dL Final Estimated Glomerular Filtration Rate Date Value Ref Range Status 03/30/2025 90 >=60 mL/min/1.73m Final Comment: Estimated Glomerular Filtration Rate (eGFR) is calculated using the 2020 CKD-EPI creatinine equation. This equation utilizes serum creatinine, sex, and age as parameters. The creatinine assay has traceable calibration to isotope dilution- mass spectrometry. Refer to KDIGO guidelines for clinical interpretation. In patients with unstable renal function, e.g. those with acute kidney injury, the eGFRmay not accurately reflect actual GFR. eGFR- Date Value Ref Range Status 07/06/2012 >60 Final P.O.C.T. RESULTS: POC done: Yes, See Lab Tab March 30, 2025 TREATMENT: N/A and No Hydration needed. PERIPHERAL IV DATA: Inpatient - refer to LDA documentation RADIOLOGY DEPARTMENT: CT; Exam(s) Completed: Abdomen/Pelvis SIGNATURE: MEGGAN Gerardo PATIENT NAME: Melina Taveras DATE: March 30, 2025 TIME: 8:42 PM documented in this encounter Plan of Treatment Upcoming Encounters Date Type Department Care Team (Latest Contact Info) Description 04/10/2025 10:00 AM EDT Hospital Encounter Admitting [address] [place] [address] Yuan Miller MD, PhD [address] [place] [id number] Nausea and vomiting, unspecified vomiting type [R11.2], H/O bariatric surgery [Z98.84], Jejunostomy tube fell out [T85.528A] 04/10/2025 10:00 AM EDT - 04/10/2025 12:00 PM EDT Surgery Admitting [address] [place] [address] Yuan Miller MD, PhD [address] [id number] LAPAROSCOPIC JEJUNOSTOMY 04/19/2025 11:00 AM EDT [facility] Neurological Shinto [address] [place] [address] Joann Loera APRN.RIPENING ROOM HAND [address] [phone] Cognitive movement issues 04/21/2025 8:30 AM EDT [facility] Nutrition Therapy [address] [phone] Tiffany Banks, RD [address] [place] [address] f/u TF forula tolerance and hydration 05/18/2025 9:00 AM EDT [facility] General Surgery [address] [place] [address] Michael Mora PA-C [address] [phone] f/u with michael mora in 2 wks 05/29/2025 9:00 AM T [facility] Gastroenterology [address] [id number] Johanna Martinez MD [facility] [address] [place], [place] [phone] 3 month follow up 06/28/2025 10:00 AM EDT [facility] Neurology Pain [address] [phone] [place] [address] [address] [phone] Follow up for pain Scheduled Procedures Name Priority Associated Diagnoses Date/Ti me LAPAROSCOPIC JEJUNOSTOMY Nausea and vomiting, unspecified vomiting type H/O bariatric surgery Jejunostomy tube fell out 04/10/2025 10:00 AM EDT documented as of this encounter Procedures Procedure Name Priority Date/Time Associated Diagnosis Comments LIPASE BLD Routine 04/03/2025 5:49 AM EDT COMPREHENSIVE METABOLIC PANEL Routine 04/03/2025 5:49 AM EDT COMPLETE BLOOD COUNT Routine 04/02/2025 5:36 AM EDT BASIC METABOLIC PANEL Routine 04/02/2025 5:36 AM EDT SEPSIS LACTATE STAT 04/02/2025 12:46 AM EDT URINALYSIS (WITH MICROSCOPIC) WITH CULTURE IF INDICATED STAT 03/31/2025 1:01 PM EDT GLUCOSE, BLOOD (POC) Routine 03/31/2025 12:56 PM EDT CLOSTRIDIUM DIFFICILE TOXIN BY PCR STAT 03/31/2025 8:02 AM EDT ENTERIC BACTERIAL PANEL BY PCR STAT 03/31/2025 8:02 AM EDT MAGNESIUM BLD Add-on 03/31/2025 6:41 AM EDT BASIC METABOLIC PANEL Routine 03/31/2025 6:[address] ABD/PEL W IVCON STAT 03/30/2025 8: 46 PM EDT HCG QUANTITATIVE STAT 03/30/2025 7:39 PM EDT UA DIP,URINE HCG(ED-POC) Routine 03/30/2025 6:19 PM EDT LIPASE BLD STAT 03/30/2025 6:05 PM EDT COMPREHENSIVE METABOLIC PANEL STAT 03/30/2025 6:05 PM EDT COMPLETE BLOOD COUNT STAT 03/30/2025 6:05 PM EDT documented in this encounter Results * (ABNORMAL) LIPASE (04/03/2025 5:49 AM EDT) Pathologist [facility] Lipase 9(L) 16 - 61 U/L 04/03/2025 7:21 AM EDT [facility] Blood BLOOD SPECIMEN / Unknown Venipuncture / Unknown 04/03/2025 5:49 AM EDT 04/03/2025 6:14 AM EDT us Hernandez Caban MD LABORATORY Fin al Result [facility] [address] * (ABNORMAL) COMPREHENSIVE METABOLIC PANEL (04/03/2025 5:49 AM EDT) Pathologist [facility] Protein, Total 4.8(L) 6.3 - 8.0 g/dL 04/03[facility]2025 7[facility] Albumin 2.7(L) 3.9 - 4.9 g/dL 04/03/2025 7:21 [facility] Calcium, Total 8.0(L) 8.5 - 10.2 mg/dL 04/03/2025 7:21 [facility] Bilirubin, Total 0.2 0.2 - 1.3 mg/dL 04/03/2025 7:21 [facility] Alkaline Phosphatase 90 34 - 123 U/L 04/03/2025 7:21 [facility] AST 12(L) 13 - 35 U/L 04/03/2025 7:21 AM EDT [facility] ALT 9 7 - 38 U/L 04/03/2025 7:21 [facility] Glucose 84 74 - 99 mg/dL 04/03/2025 7:21 AM [facility] Comment: The [place] Diabetes Association (ADA) provides guidance for cutoff [...] Standards of Medical Care in Diabetes 2016, [place] [employer] Association. Diabetes Care. 2016.39(Suppl 1). BUN 10 7 - 21 mg/dL 04/03/2025 7:21 AM [facility] Creatinine 0.64 0.58 - 0.96 mg/dL 04/03/2025 7:21 AM [facility] Sodium 142 136 - 144 mmol/L 04/03/2025 7:21 AM [facility] Potassium 3.9 3.7 - 5.1 mmol/L 04/03/2025 7:21 AM [facility] Chloride 109(H) 98 - 107 mmol/L 04/03/2025 7:21 AM [facility] CO2 28 22 - 30 mmol/L 04/03/2025 7:21 AM [facility] Anion Gap 5(L) 8 - 15 mmol/L 04/03/2025 7:21 AM [facility] Estimated Glomerular Filtration Rate 109 >=60 mL/min/1. 73m 04/03/2025 7:21 AM [facility] Comment:Estimated Glomerular Filtration Rate (eGFR) is calculated [...] BLOOD SPECIMEN / Unknown Venipuncture / Unknown 04/03/2025 5:49 AM EDT 04/03/2025 6:14 AM EDT us Hernandez Caban MD LABORATORY Fin al Result [facility] [address] [place] [address], [place] * (ABNORMAL) BASIC METABOLIC PANEL (04/02/2025 5:36 AM EDT) [facility] Glucose 87 74 - 99 mg/dL 04/02/2025 7:05 AM [facility] Comment: The [place] Diabetes Association (ADA) provides guidance for cutoff [...] Standards of Medical Care in Diabetes 2016, [place] Diabetes Association. Diabetes Care. 2016.39(Suppl 1). BUN 10 7 - 21 mg/dL 04/02/2025 7:05 AM [facility] Creatinine 0.67 0.58 - 0.96 mg/dL 04/02/2025 7:05 AM [facility] Sodium 141 136 - 144 mmol/L 04/02/2025 7:05 AM [facility] Potassium 3.7 3.7 - 5.1 mmol/L 04/02/2025 7:05 AM [facility] Chloride 108(H) 98 - 107 mmol/L 04/02/2025 7:05 AM [facility] CO2 24 22 - 30 mmol/L 04/02/2025 7:05 AM [facility] Anion Gap 9 8 - 15 mmol/L 04/02/2025 7:05 AM [facility] Calcium, Total 8.2(L) 8.5 - 10.2 mg/dL 04/02/2025 7:05 AM [facility] Estimated Glomerular Filtration Rate 108 >=60 mL/min/1. 73m 04/02/2025 7:05 AM [facility] Comment:Estimated Glomerular Filtration Rate (eGFR) is calculated [...] BLOOD SPECIMEN / Unknown Venipuncture / Unknown 04/02/2025 5:36 AM EDT 04/02/2025 6:36 AM EDT us Hernandez Caban MD LABORATORY Fin al Result [facility] [address] [place] [address], * (ABNORMAL) COMPLETE BLOOD COUNT (04/02/2025 5:36 AM EDT) WBC 6.55 3.70 - 11.00 k/uL 04/02/2025 7:12 AM EDT [facility] RBC 3.84(L) 3.90 - 5.20 m/uL 04/02/2025 7:12 AM EDT [facility] Hemoglobin 10.7(L) 11.5 - 15.5 g/dL 04/02/2025 7:12 AM EDT [facility] Hematocrit 33.2(L) 36.0 - 46.0 % 04/02/2025 7:12 AM EDT [facility] MCV 86.5 80.0 - 100.0 fL 04/02/2025 7:12 AM EDT [facility] MCH 27.9 26.0 - 34.0 pg 04/02/2025 7:12 AM EDT [facility] MCHC 32.2 30.5 - 36.0 g/dL 04/02/2025 7:12 AM EDT [facility] RDW-CV 14.4 11.5 - 15.0 % 04/02/2025 7:12 AM EDT [facility] Platelet Count 321 150 - 400 k/uL 04/02/2025 7:12 AM EDT [facility] MPV 9.4 9.0 - 12.7 fL 04/02/2025 7:12 AM EDT [facility] Absolute nRBC <0.01 <0.01 k/uL 04/02/2025 7:12 AM EDT [facility] Blood BLOOD SPECIMEN / Unknown Venipuncture / Unknown 04/02/2025 5:36 AM EDT 04/02/2025 6:28 AM EDT us Hernandez Caban MD LABORATORY Fin al Result Performing Organization Address [facility]/ZIP Co de Phone Number [facility] [id number] [place] [address], * SEPSIS LACTATE (04/02/2025 12:46 AM EDT) Sepsis Lactate 0.7 <=2.0 mmol/L 04/02/2025 12:55 AM EDT [facility] Blood BLOOD SPECIMEN / Unknown Venipuncture / Unknown 04/02/2025 12:46 AM EDT 04/02/2025 12:51 AM EDT Hernandez Caban MD BLOOD GASES Fin al Result Performing Organization Address [facility] de Phone Number [facility] [id number] [place] [address], * (ABNORMAL) URINALYSIS (WITH MICROSCOPIC) WITH CULTURE IF INDICATED (03/31/2025 1:01 PM EDT) Color Yellow Yellow 03/31/2025 1:38 PM EDT [facility] Clarity Clear Clear 03/31/2025 1:38 PM EDT [facility] Glucose, Urine Negative Trace, Negative 03/31/2025 1:38 PM EDT [facility] Bilirubin, Urine Negative Negative 03/31/20 25 1:38 PM EDT [facility] Ketones, Urine Negative Negative, Trace 03/31/2025 1:38 PM EDT [facility] Specific [place], Ur 1.044(H) 1.005 - 1.030 03/31/2025 1:38 PM EDT [facility] Hemoglobin/Blood ,Ur Negative Negative, Trace 03/31/2025 1:38 PM EDT [facility] pH, Urine 6.0 5.0 - 8.0 03/31/2025 1:38 PM EDT [facility] Protein, Urine 1+(A) Trace, Negative 03/31/2025 1:38 PM EDT [facility] Urobilinogen Normal Normal 03/31/2025 1:38 PM EDT [facility] Nitrites Negative Negative 03/31/2025 1:38 PM EDT [facility] Leuk Esterase Negative Negative, 25 Danielle/uL 03/31/2025 1:38 PM EDT [facility] WBC, Urine 6-10 /HPF(A) 0-5 /HPF 03/31/2025 1:38 PM EDT [facility] RBC, Urine 0-3 /HPF 0-3 /HPF 03/31/2025 1:38 PM EDT [facility] Squamous Epithelial Cells Few /HPF 03/31/2025 1:38 PM EDT [facility] Urine MID-STREAM URINE SPECIMEN / Unknown Non Blood / Unknown 03/31/2025 1:01 PM EDT 03/31/2025 1:21 PM EDT Mary Escamilla DO LABORATORY Final Result Performing Organization Address [facility] [place] [address], [place] * GLUCOSE, BLOOD (POC) (03/31/2025 12:56 PM EDT) [facility] Glucose, Point of Care 96 74 - 99 mg/dL [facility] Comment: Location:[facility], [address] [place] [address], [facility] The Accu-Chek Inform II glucose meter has not been approved for testing on patients receiving intensive medical intervention or therapy and results from this point of care glucose test should not be used for patient management decisions in these cases. Inaccurate results may also occur from other interfering factors, such as N-acetylcysteine (blood concentrations of greater than 5mg/dL), galactose, extremes of hematocrit (<10 or >65), or high doses of ascorbic acid (vitamin C) greater than 3mg/dL. Consider alternate testing mechanisms (e.g. core lab, blood gas instrument) in the above situations. 03/31/2025 12:5 6 PM EDT us Rafia Perez DO POC TESTING Final Result Performing Organization Address [facility] Co de Phone Number [facility] POINT OF CARE [facility] [address] [address] [place], [place] * CLOSTRIDIUM DIFFICILE TOXIN BY PCR (03/31/2025 8:02 AM EDT) [facility] C. difficile PCR Negative for C. difficile toxin by PCR Negative for C. difficile toxin by PCR [email or web address] COVID19 03/31/2025 5:48 PM EDT [facility] Stool STOOL SPECIMEN / Unknown Non Blood / Unknown 03/31/2025 8:02 AM EDT 03/31/2025 8:06 AM EDT Buddy Ramos DO LABORATORY Final Result Performing Organization Address City/[facility]/ZIP Co de Phone Number [facility] [address] [place], [place] [id number], [place] * (ABNORMAL) ENTERIC BACTERIAL PANEL BY PCR (03/31/2025 8:02 AM EDT) [facility] Campylobacter species (C. jejuni/C. coli) DNA Detected(A) Not Detected 03/31/2025 10:20 PM EDT [facility] Salmonella species DNA Not detected Not Detected 03/31/2025 10:20 PM EDT [facility] Shiga-like toxin producing E. coli (STEC) DNA Not detected Not Detected 03/31/2025 10:20 PM EDT [facility] Shigella/Enteroin vasive E. coli (EIEC) DNA Not detected Not Detected 03/31/2025 10:20 PM EDT [facility] Stool STOOL SPECIMEN / Unknown Non Blood / Unknown 03/31/2025 8:02 AM EDT 03/31/2025 8:06 AM EDT Buddy Ramos DO LABORATORY Final Result Performing Organization Address [facility]/ZIP Co de Phone Number [facility] [address] [place], [place] [id number], [place] * MAGNESIUM (03/31/2025 6:41 AM EDT) [facility] Magnesium 2.1 1.7 - 2.3 mg/dL 03/31/2025 11:36 AM EDT [facility] Blood BLOOD SPECIMEN / Unknown Venipuncture / Unknown 03/31/2025 6:41 AM EDT 03/31/2025 7:04 AM EDT Rafia Perez DO LABORATORY Final Result [facility] [address] [place] [address], * (ABNORMAL) BASIC METABOLIC PANEL (03/31/2025 6:41 AM EDT) Glucose 82 74 - 99 mg/dL 03/31/2025 7:53 AM EDT [facility] Comment: The [place] [employer] Association (ADA) provides guidance for cutoff [...] Standards of Medical Care in Diabetes 2016, [place] [employer]. Diabetes Care. 2016.39(Suppl 1). BUN 6(L) 7 - 21 mg/dL 03/31/2025 7:53 AM EDT [facility] Creatinine 0.74 0.58 - 0.96 mg/dL 03/31/2025 7:53 AM EDT [facility] Sodium 138 136 - 144 mmol/L 03/31/2025 7:53 AM EDT [facility] Potassium 3.5(L) 3.7 - 5.1 mmol/L 03/31/2025 7:53 AM EDT [facility] Chloride 107 98 - 107 mmol/L 03/31/2025 7:53 AM EDT [facility] CO2 19(L) 22 - 30 mmol/L 03/31/2025 7:53 AM EDT [facility] Anion Gap 12 8 - 15 mmol/L 03/31/2025 7:53 AM EDT [facility] Calcium, Total 8.5 8.5 - 10.2 mg/dL 03/31/2025 7:53 AM EDT [facility] Estimated Glomerular Filtration Rate 100 >=60 mL/min/1. 73m 03/31/2025 7:53 AM EDT [facility] Comment:Estimated Glomerular Filtration Rate (eGFR) is calculated [...] BLOOD SPECIMEN / Unknown Venipuncture / Unknown 03/31/2025 6:41 AM EDT 03/31/2025 7:04 AM EDT us Chong Crawford MD LABORATORY Final Result [facility] [address] * CT ABD/PEL W IVCON (03/30/2025 8:46 PM EDT) Anatomical Region Laterality Modality Abdomen Computed Tomogra phy 03/30/2025 8:46 PM EDT Impressions 03/30/2025 10:37 PM EDT IMPRESSION: 1. Appendix appears unremarkable and no bowel obstruction or free air. 2. Details above. Content Management Specialist: PSCB Transcribe Date/Time: Mar 30 2025 10:26P Dictated by : MAYRA MOFFETT MD This examination was interpreted and the report reviewed and electronically signed by: MAYRA MOFFETT MD on Mar 30 2025 10:35PM EST Narrative 03/30/2025 10:37 PM EDT * * *Final Report* * * DATE OF EXAM: Mar 30 2025 8:46PM [facility]VC 0530 - CT ABD/PEL W IVCON / PROCEDURE REASON: Bowel obstruction suspected * * * * Physician Interpretation * * * * EXAMINATION: CT ABDOMEN AND PELVIS WITH IV CONTRAST CLINICAL HISTORY: Right mid abdominal pain. TECHNIQUE: CT of the abdomen and pelvis was performed using standard technique, scanning from just above the dome of the diaphragm to the symphysis pubis. Coronal and sagittal reconstructed images generated. MQ: CTAP_3 Contrast: IV: 100 ml of Omnipaque 350 Oral: None CT Radiation dose: Integrated Dose-length product (DLP) for this visit = 915 mGy*cm. CT Dose Reduction Employed: Automated exposure control (AEC) COMPARISON: 10/23/2024 RESULT: Liver: No mass. Biliary: No bile duct dilation. Gallbladder is absent. Spleen: Stable 1.6 cm hypodense lesion inferiorly likely representing a cyst. No splenomegaly. Pancreas: No mass or duct dilation. Adrenals: No mass. Kidneys: Enhance symmetrically. No hydronephrosis. GI tract: Small hiatal hernia. Postsurgical changes associated with the stomach and changes of gastric bypass. No dilation or wall thickening. The appendix appears unremarkable. Lymph nodes: There are a few scattered subcentimeter nonspecific mesenteric lymph nodes. No lymphadenopathy identified. Mesentery/Peritoneum: No free air. No ascites. Retroperitoneum: No mass. Vasculature: - Abdominal aorta and iliac arteries: No aneurysm. - Celiac and SMA: Patent. - Portal venous system (SMV, splenic vein, portal vein and branches): Patent. - Hepatic veins: Patent. Pelvis: Urinary bladder is predominantly collapsed and otherwise unremarkable. Uterus is absent. Bones: Mild degenerative changes visualized thoracic spine and bilateral hips. Lower thorax: No consolidation. No pleural effusion. Localizer images: No additional findings. Procedure Note Provider, [facility] [place] - 03/30/2025 * * *Final Report* * * DATE OF EXAM: Mar 30 2025 8:46PM [facility]VC 0530 - CT ABD/PEL W IVCON / PROCEDURE REASON: Bowel obstruction suspected * * * * Physician Interpretation * * * * EXAMINATION: CT ABDOMEN AND PELVIS WITH IV CONTRAST CLINICAL HISTORY: Right mid abdominal pain. TECHNIQUE: CT of the abdomen and pelvis was performed using standard technique, scanning from just above the dome of the diaphragm to the symphysis pubis. Coronal and sagittal reconstructed images generated. MQ: CTAP_3 Contrast: IV: 100 ml of Omnipaque 350 Oral: None CT Radiation dose: Integrated Dose-length product (DLP) for this visit = 915 mGy*cm. CT Dose Reduction Employed: Automated exposure control (AEC) COMPARISON: 10/23/2024 RESULT: Liver: No mass. Biliary: No bile duct dilation. Gallbladder is absent. Spleen: Stable 1.6 cm hypodense lesion inferiorly likely representing a cyst. No splenomegaly. Pancreas: No mass or duct dilation. Adrenals: No mass. Kidneys: Enhance symmetrically. No hydronephrosis. GI tract: Small hiatal hernia. Postsurgical changes associated with the stomach and changes of gastric bypass. No dilation or wall thickening. The appendix appears unremarkable. Lymph nodes: There are a few scattered subcentimeter nonspecific mesenteric lymph nodes. No lymphadenopathy identified. Mesentery/Peritoneum: No free air. No ascites. Retroperitoneum: No mass. Vasculature: - Abdominal aorta and iliac arteries: No aneurysm. - Celiac and SMA: Patent. - Portal venous system (SMV, splenic vein, portal vein and branches): Patent. - Hepatic veins: Patent. Pelvis: Urinary bladder is predominantly collapsed and otherwise unremarkable. Uterus is absent. Bones: Mild degenerative changes visualized thoracic spine and bilateral hips. Lower thorax: No consolidation. No pleural effusion. Localizer images: No additional findings. IMPRESSION IMPRESSION: 1. Appendix appears unremarkable and no bowel obstruction or free air. 2. Details above. Content Management Specialist: PSCB Transcribe Date/Time: Mar 30 2025 10:26P Dictated by : MAYRA MOFFETT MD This examination was interpreted and the report reviewed and electronically signed by: MAYRA MOFFETT MD on Mar 30 2025 10:35PM EST us Mary Escamilla DO CT-[facility]AMA Final Result * HCG QUANTITATIVE (03/30/2025 7:39 PM EDT) hCG Quantitative, Blood 3.4 <5.0 mIU/mL 03/30/2025 8:38 PM EDT [facility] Comment:Negative Blood BLOOD SPECIMEN / Unknown Venipuncture / Unknown 03/30/2025 7:39 PM EDT 03/30/2025 7:57 PM EDT us Mary Escamilla DO LABORATORY Final Result [facility] [address] * (ABNORMAL) UA DIP,URINE HCG(ED-POC) (03/30/2025 6:19 PM EDT) Pathologist [facility] Urine hCG (POCT) Positive(A) Negative [facility] POINT OF CARE Manager [employer] (POCT) Internal QC OK [facility] POINT OF CARE 03/30/2025 6:19 PM EDT [facility] Provider POC TESTING Final Result [facility] POINT OF CARE * (ABNORMAL) LIPASE (03/30/2025 6:05 PM EDT) Pathologist [facility] Lipase 10(L) 16 - 61 U/L 03/30/2025 6:43 PM EDT [facility] Blood BLOOD SPECIMEN / Unknown Venipuncture / Unknown 03/30/2025 6:05 PM EDT 03/30/2025 6:23 PM EDT Mary Escamilla DO LABORATORY Final Result [facility] [address] [place] [address], * (ABNORMAL) COMPREHENSIVE METABOLIC PANEL (03/30/2025 6:05 PM EDT) Protein, Total 7.0 6.3 - 8.0 g/dL 03/30/2025 6:43 PM EDT [facility] Albumin 3.9 3.9 - 4.9 g/dL 03/30/2025 6:43 PM EDT [facility] Calcium, Total 9.0 8.5 - 10.2 mg/dL 03/30/2025 6:43 PM EDT [facility] Bilirubin, Total 0.3 0.2 - 1.3 mg/dL 03/30/2025 6:43 PM EDT [facility] Alkaline Phosphatase 126(H) 34 - 123 U/L 03/30/2025 6:43 PM EDT [facility] AST 12(L) 13 - 35 U/L 03/30/2025 6:43 PM EDT [facility] ALT 11 7 - 38 U/L 03/30/2025 6:43 PM [facility] Glucose 100(H) 74 - 99 mg/dL 03/30/2025 6:43 PM [facility] Comment: The [place] Diabetes Association (ADA) provides guidance for cutoff [...] Standards of Medical Care in Diabetes 2016, [place] [employer]. Diabetes Care. 2016.39(Suppl 1). BUN 7 7 - 21 mg/dL 03/30/2025 6:43 PM [facility] Creatinine 0.81 0.58 - 0.96 mg/dL 03/30/2025 6:43 PM [facility] Sodium 142 136 - 144 mmol/L 03/30/2025 6:43 PM [facility] Potassium 3.4(L) 3.7 - 5.1 mmol/L 03/30/2025 6:43 PM [facility] Chloride 108(H) 98 - 107 mmol/L 03/30/2025 6:43 PM [facility] CO2 24 22 - 30 mmol/L 03/30/2025 6:43 PM [facility] Anion Gap 10 8 - 15 mmol/L 03/30/2025 6:43 PM [facility] Estimated Glomerular Filtration Rate 90 >=60 mL/min/1. 73m 03/30/2025 6:43 PM [facility] Comment:Estimated Glomerular Filtration Rate (eGFR) is calculated [...] BLOOD SPECIMEN / Unknown Venipuncture / Unknown 03/30/2025 6:05 PM EDT 03/30/2025 6:23 PM EDT [facility] LABORATORY Final Result Performing Organization Address [facility]/State/ZIP Co de Phone Number [facility] [address] [place] [address], * (ABNORMAL) COMPLETE BLOOD COUNT (03/30/2025 6:05 PM EDT) WBC 7.88 3.70 - 11.00 k/uL 03/30/2025 6:25 PM EDT [facility] RBC 4.56 3.90 - 5.20 m/uL 03/30/2025 6:25 PM EDT [facility] Hemoglobin 12.9 11.5 - 15.5 g/dL 03/30/2025 6:25 PM EDT [facility] Hematocrit 38.6 36.0 - 46.0 % 03/30/2025 6:25 PM EDT [facility] MCV 84.6 80.0 - 100.0 fL 03/30/2025 6:25 PM EDT [facility] MCH 28.3 26.0 - 34.0 pg 03/30/2025 6:25 PM EDT [facility] MCHC 33.4 30.5 - 36.0 g/dL 03/30/2025 6:25 PM EDT [facility] RDW-CV 14.1 11.5 - 15.0 % 03/30/2025 6:25 PM EDT [facility] Platelet Count 424(H) 150 - 400 k/uL 03/30/2025 6:25 PM EDT [facility] MPV 9.5 9.0 - 12.7 fL 03/30/2025 6:25 PM EDT [facility] Absolute nRBC <0.01 <0.01 k/uL 03/30/2025 6:25 PM EDT [facility] Blood BLOOD SPECIMEN / Unknown Venipuncture / Unknown 03/30/2025 6:05 PM EDT 03/30/2025 6:13 PM EDT [facility] LABORATORY Final Result [facility] [address] documented in this encounter Visit Diagnoses Diagnosis Campylobacter diarrhea- Primary Intestinal infection due to campylobacter Nausea and vomiting, unspecified vomiting type Diarrhea, unspecified type Hypokalemia Hypopotassemia Abdominal pain, generalized Intractable nausea and vomiting Persistent vomiting Intractable nausea and vomiting Persistent vomiting S/P bariatric surgery Bariatric surgery status Jejunostomy malfunction (HCC) Mechanical complication of colostomy and enterostomy Nausea and vomiting, unspecified vomiting type H/O bariatric surgery Bariatric surgery status Jejunostomy tube fell out Mechanical complication of colostomy and enterostomy documented in this encounter Admitting Diagnoses Diagnosis Intractable nausea and vomiting Persistent vomiting documented in this encounter Administered Medications Inactive Administered Medications - up to 3 most recent administrations Medication Order MAR Action Action Date Dose Rate Site acetaminophen 650 mg tab(s) (TYLENOL) 650 mg, ORAL, EVERY 6 HOURS NEEDED, Starting on Thu03/31/25 at 0431, Until Thu04/04/25 at 1723, Mild Pain (1-3) - Enteral, If ordered PRN for pain, patient/guardian may elect to receive this medication for higher pain levels INSTEAD of the opioid, if preferred: Yes Given 04/03/2025 1:13 PM EDT 650 mg Given 04/03/2025 12:17 AM EDT 650 mg Given 04/01/2025 9:25 PM EDT 650 mg azithromycin 250 mg tab(s) (ZITHROMAX) 250 mg, ORAL, DAILY, First dose (after last modification) on Thu04/05/25 at 0900, Until Discontinued, Antimicrobial indication: Pathogen-directed, Infectious source(s): Intra-abdominal, Pharmacist may modify dose per [facility] dose optimization consult agreement: Yes azithromycin 500 mg tab(s) (ZITHROMAX) 500 mg, ORAL, NOW, 1 dose, On 04/01/25 at 0830, Antimicrobial indication: Pathogen-directed, Infectious source(s): Intra-abdominal, Pharmacist may modify dose per [facility] dose optimization consult agreement: Yes Given 04/01/2025 9:57 AM EDT 500 mg azithromycin 500 mg tab(s) (ZITHROMAX) 500 mg, ORAL, DAILY, First dose on Thu04/02/25 at 1230, Until Discontinued, Antimicrobial indication: Pathogen-directed, Infectious source(s): Intra-abdominal, Pharmacist may modify dose per [facility] dose optimization consult agreement: Yes Given 04/04/2025 9:22 AM EDT 500 mg Given 04/03/2025 9:26 AM EDT 500 mg Given 04/02/2025 1:17 PM EDT 500 mg benzocaine 1 lozenge (CHOLORASEPTIC WARMING SORE THROAT) 1 lozenge, MUCOUS MEMBRANE (TOPICAL MOUTH & THROAT), EVERY 2 HOURS NEEDED, Starting on Thu04/02/25 at 2204, Until Thu04/04/25 at 1723, Sore Throat Given 04/02/2025 10:14 PM EDT 1 lozenge colestipol 5 g tab(s) (COLESTID) 5 g, ORAL, 2 TIMES DAILY, First dose on Thu03/31/25 at 1000, Until Discontinued, Swallow whole; DO NOT crush or chew. Given 04/01/2025 9:26 PM EDT 5 g Given 04/01/2025 8:12 AM EDT 5 g Given 03/31/2025 8:35 PM EDT 5 g diphenhydrAMINE 25 mg injection (BENADRYL) 25 mg, INTRAVENOUS, ONCE, 1 dose, On Thu04/02/25 at 0230 Given 04/02/2025 2:30 AM EDT 25 mg diphenhydrAMINE 50 mg injection (BENADRYL) 50 mg, INTRAVENOUS, EVERY 6 HOURS NEEDED, Starting on Thu03/31/25 at 0431, Until Thu04/04/25 at 1723, itching/rash Given 04/04/2025 10:13 AM EDT 50 mg Given 04/04/2025 4:06 AM EDT 50 mg Given 04/03/2025 8:35 PM EDT 50 mg gabapentin 900 mg cap(s) (NEURONTIN) 900 mg, ORAL, EVERY 8 HOURS, First dose (after last modification) on Thu03/31/25 at 0800, Until Discontinued Given 03/31/2025 8:02 AM EDT 900 mg gabapentin 900 mg cap(s) (NEURONTIN) 900 mg, ORAL, EVERY 8 HOURS, First dose (after last reorder) on Thu03/31/25 at 0930, Until Discontinued Given 04/04/2025 1:41 PM EDT 900 mg Given 04/04/2025 4:21 AM EDT 900 mg Given 04/03/2025 7:25 PM EDT 900 mg HYDROmorphone 0.2 mg injection (DILAUDID) 0.2 mg, INTRAVENOUS, ONCE, 1 dose, On 04/01/25 at 2200, Caution: IV hydromorphone is approximately 8 times MORE POTENT than IV morphine. For example, hydromorphone 1mg IV = morphine 8mg IV Given 04/01/2025 9:52 PM EDT 0.2 mg HYDROmorphone 0.4 mg injection (DILAUDID) 0.4 mg, INTRAVENOUS, EVERY 4 HOURS NEEDED, Starting on 04/01/25 at 1613, Until Thu04/02/25 at 1038, Severe Pain (>/=7) - Parenteral, Caution: IV hydromorphone is approximately 8 times MORE POTENT than IV morphine. For example, hydromorphone 1mg IV = morphine 8mg IV Given 04/02/2025 9:53 AM EDT 0.4 mg Given 04/02/2025 4:21 AM EDT 0.4 mg Given 04/01/2025 10:56 PM EDT 0.4 mg HYDROmorphone 0.4 mg injection (DILAUDID) 0.4 mg, INTRAVENOUS, ONCE, 1 dose, On 04/02/25 at 0500, Caution: IV hydromorphone is approximately 8 times MORE POTENT than IV morphine. For example, hydromorphone 1mg IV = morphine 8mg IV Given 04/02/2025 5:00 AM EDT 0.4 mg HYDROmorphone 0.5 mg injection (DILAUDID) 0.5 mg, INTRAVENOUS, ONCE, 1 dose, On Thu03/31/25 at 0100, Caution: IV hydromorphone is approximately 8 times MORE POTENT than IV morphine. For example, hydromorphone 1mg IV = morphine 8mg IV Given 03/31/2025 1:16 AM EDT 0.5 mg HYDROmorphone 0.5 mg injection (DILAUDID) 0.5 mg, INTRAVENOUS, EVERY 4 HOURS NEEDED, Starting on Thu03/31/25 at 0431, Until 04/01/25 at 1613, Severe Pain (>/=7) - Parenteral, Caution: IV hydromorphone is approximately 8 times MORE POTENT than IV morphine. For example, hydromorphone 1mg IV = morphine 8mg IV Given 04/01/2025 2:37 PM EDT 0.5 mg Given 04/01/2025 10:43 AM EDT 0.5 mg Given 04/01/2025 6:06 AM EDT 0.5 mg HYDROmorphone 0.5 mg injection (DILAUDID) 0.5 mg, INTRAVENOUS, ONCE, 1 dose, On Thu03/31/25 at 0330, Caution: IV hydromorphone is approximately 8 times MORE POTENT than IV morphine. For example, hydromorphone 1mg IV = morphine 8mg IV Given 03/31/2025 3:14 AM EDT 0.5 mg lactated ringers iv infusion 100 mL/hr, INTRAVENOUS, CONTINUOUS, Starting on 04/01/25 at 0830, Until 04/02/25 at 0829 New Bag/Syringe/Bottle 04/02/2025 4:20 AM EDT 100 mL/hr 100 mL/hr New Bag/Syringe/Bottle 04/01/2025 6:39 PM EDT 100 mL/hr 1 00 mL/hr New Bag/Syringe/Bottle 04/01/2025 8:26 AM EDT 100 mL/hr 1 00 mL/hr lactobacillus rhamnosus 10 billion cell (CULTURELLE) capsule 1 capsule, ORAL, DAILY, First dose on Thu04/03/25 at 1330, Until Discontinued Given 04/04/2025 9:22 AM EDT 1 capsul e Given 04/03/2025 1:13 PM EDT 1 capsule levothyroxine 50 mcg tab(s) (SYNTHROID) 50 mcg, ORAL, DAILY AT 6 AM, First dose on Thu03/31/25 at 0600, Until Discontinued, Do not give breakfast until 30 minutes after levothyroxine dose, administer on an empty stomach. Administer 2 hours before or 2 hours after antacids, calcium or iron or foods containing these items. Tube feedings should be held for 1 hour before and 1 hour after administration. Given 04/04/2025 4:21 AM EDT 50 mcg Given 04/03/2025 6:17 AM EDT 50 mcg Given 04/02/2025 5:00 AM EDT 50 mcg mepopi-jfidfmty-dkxbwbi 3 capsule cap(s) (CREON 24) 3 capsule, ORAL, 3 TIMES DAILY W/MEALS, First dose on Thu03/31/25 at 0900, Until Discontinued, CREON 24 - DO NOT crush or chew. Contents may be mixed with apple sauce. Given 04/04/2025 1:41 PM EDT 3 capsules Given 04/04/2025 9:22 AM EDT 3 capsules Given 04/03/2025 1:13 PM EDT 3 capsules memantine 10 mg tab(s) (NAMENDA) 10 mg, ORAL, 2 TIMES DAILY, First dose on Thu03/31/25 at 0900, Until Discontinued Given 04/04/2025 9:22 AM EDT 10 mg Given 04/03/2025 7:25 PM EDT 10 mg Given 04/03/2025 9:26 AM EDT 10 mg metoclopramide HCl 10 mg injection (REGLAN) 10 mg, INTRAVENOUS, ONCE, 1 dose, On Thu03/31/25 at 0100, Pharmacist may modify dose per [facility] dose optimization consult agreement: Yes Given 03/31/2025 1:16 AM EDT 10 mg NaCl 0.9% 1,000 mL iv bolus 1,000 mL, INTRAVENOUS, at 999 mL/hr, Administer over 1 Hours, ONCE, 1 dose, On Thu03/31/25 at 0100 New Bag/Syringe/Bottle 03/31/2025 1:16 AM EDT 1,000 mL 999 mL/hr NaCl 0.9% 1,000 mL iv bolus 1,000 mL, INTRAVENOUS, at 999 mL/hr, Administer over 1 Hours, ONCE, 1 dose, On Thu04/01/25 at 1030, Administration method is bolus dose from bag via bolus feature on smart pump or obtain bolus dose from floorstock. New Bag/Syringe/Bottle 04/01/2025 10:45 AM EDT 1,000 mL 999 mL/hr NaCl 0.9% 500 mL iv bolus 500 mL, INTRAVENOUS, at 999 mL/hr, Administer over 0.5 Hours, ONCE, 1 dose, On Thu03/31/25 at 1630 New Bag/Syringe/Bottle 03/31/2025 4:15 PM EDT 500 mL 999 mL/hr NaCl 0.9% iv flush bag 20 mL, INTRAVENOUS, NEEDED, Starting on Thu03/31/25 at 0122, Until Thu04/04/25 at 1723, See admin instructions, If no compatible primary is already running, infuse NaCl 0.9% as primary to flush tubing after non-chemotherapy, non-immunotherapy intermittent infusions. Administer at the same rate as intermittent infusion. Select the Flush Bag file on smart pump. NaCl 0.9% with 20 mEq/L KCl iv infusion 75 mL/hr, INTRAVENOUS, CONTINUOUS, Starting on Thu03/31/25 at 0500, Until Thu03/31/25 at 1859 New Bag/Syringe/Bottle 03/31/2025 6:06 AM EDT 75 mL/hr 75 mL/hr ondansetron (PF) 4 mg injection (ZOFRAN) 4 mg, INTRAVENOUS, EVERY 6 HOURS NEEDED, Starting on Thu03/31/25 at 0431, Until Thu04/04/25 at 1723, Nausea/Vomiting - First Line - Parenteral, Give IV push over 2 minutes. Use when patient unable to take medications by mouth. Given 04/04/2025 12:30 PM EDT 4 mg Given 04/04/2025 6:40 AM EDT 4 mg Given 04/03/2025 11:14 PM EDT 4 mg ondansetron 4 mg tab(s) (ZOFRAN) 4 mg, ORAL, EVERY 6 HOURS NEEDED, Starting on Thu03/31/25 at 0431, Until Thu04/04/25 at 1723, Nausea/Vomiting - First Line - Enteral, Use when patient is able to take medications by mouth. Given 04/01/2025 2:37 PM EDT 4 mg Given 04/01/2025 8:12 AM EDT 4 mg Given 04/01/2025 2:28 AM EDT 4 mg oxyCODONE IR 5 mg tab(s) (ROXICODONE) 5 mg, ORAL, EVERY 6 HOURS NEEDED, Starting on Thu03/31/25 at 0431, Until Thu03/31/25 at 0906, Moderate Pain (4-6) - Enteral Given 03/31/2025 8:02 AM EDT 5 mg oxyCODONE IR 5 mg tab(s) (ROXICODONE) 5 mg, ORAL, EVERY 6 HOURS NEEDED, Starting on Thu03/31/25 at 1019, Until Thu04/02/25 at 1202, Moderate Pain (4-6) - Enteral, pain Given 04/02/2025 8:06 AM EDT 5 mg Given 04/02/2025 1:05 AM EDT 5 mg Given 04/01/2025 4:34 PM EDT 5 mg oxyCODONE IR 5-10 mg tab(s) (ROXICODONE) 5-10 mg, ORAL, EVERY 4 HOURS NEEDED, Starting on Thu04/02/25 at 1201, Until Thu04/04/25 at 1723, Severe Pain (>/=7) - Enteral Given 04/04/2025 1:4 1 PM EDT 10 mg Given 04/04/2025 9:22 AM EDT 10 mg Given 04/04/2025 4:06 AM EDT [address] 40 mg tab(s) (PROTONIX) 40 mg, ORAL, DAILY AT 6 AM, First dose on Thu04/02/25 at 1230, Until Discontinued, Swallow whole; DO NOT crush or chew. Given 04/04/2025 4:21 AM EDT 40 mg Given 04/03/2025 6:17 AM EDT 40 mg Given 04/02/2025 1:17 PM EDT 40 mg potassium chloride iv piggyback 20 mEq/100 mL 20 mEq, INTRAVENOUS, at 50-100 mL/hr, Administer over 1-2 Hours, ONCE, 1 dose, On Thu03/31/25 at 0130, NONCYTOTOXIC VESICANT If ordered with infusion rate range, start with maximum infusion rate and decrease rate if infusion is not tolerated New Bag/Syringe/Bottle 03/31/2025 3:53 AM EDT 20 mEq 50 mL/hr prochlorperazine 10 mg tab(s) (COMPAZINE) 10 mg, ORAL, EVERY 8 HOURS NEEDED, Starting on 04/01/25 at 1613, Until Thu04/03/25 at 2016, Nausea/Vomiting - Second Line - Enteral Given 04/03/2025 1:13 PM EDT 10 mg Given 04/03/2025 12:17 AM EDT 10 mg Given 04/02/2025 8:14 AM EDT 10 mg prochlorperazine 5 mg injection (COMPAZINE) 5 mg, INTRAVENOUS, ONCE, 1 dose, On 04/01/25 at 0300, Protect From Light Given 04/01/2025 3:08 AM EDT 5 mg prochlorperazine 5 mg injection (COMPAZINE) 5 mg, INTRAVENOUS, EVERY 6 HOURS NEEDED, Starting on Thu04/03/25 at 2015, Until Thu04/04/25 at 1723, Nausea/Vomiting - Second Line - Parenteral, Protect From Light Given 04/04/2025 10:12 AM EDT 5 mg Given 04/04/2025 4:21 AM EDT 5 mg Given 04/03/2025 8:35 PM EDT 5 mg sucralfate 1 g tab(s) (CARAFATE) 1 g, ORAL, 2 TIMES DAILY BEFORE MEALS, First dose on Thu04/02/25 at 1600, Until Discontinued, PLEASE dissolve whole tablet in 20 mL of water for administration by mouth Given 04/04/2025 4:31 AM EDT 1 g Given 04/03/2025 4:23 PM EDT 1 g Given 04/03/2025 6:17 AM EDT 1 g tiZANidine 4 mg tab(s) (ZANAFLEX) 4 mg, ORAL, EVERY 8 HOURS NEEDED, Starting on Thu04/03/25 at 1812, Until Thu04/04/25 at 1723, Muscle Spasm - First Line - Enteral, tiZANidine cap(s) (ZANAFLEX) substituted to tiZANidine tab(s) (ZANAFLEX) per Pharmacy and Therapeutic Committee Given 04/04/2025 6:40 AM EDT 4 mg Given 04/03/2025 6:32 PM EDT 4 mg zinc oxide ointment 20% TOPICAL, NEEDED, Starting on Thu03/31/25 at 0943, Until Thu04/04/25 at 1723, itching/rash, FOR EXTERNAL USE ONLY APPLY TO: peg tube site Given 03/31/2025 10:58 AM E DT documented in this encounter Active and Recently Administered Medications Times are shown in EDT. Scheduled Medication Order 04/02/2025 04/03/2025 04/04/2025 azithromycin 250 mg tab(s) (ZITHROMAX) 250 mg, ORAL, DAILY, First dose (after last modification) on Thu04/05/25 at 0900, Until Discontinued, Antimicrobial indication: Pathogen-directed, Infectious source(s): Intra-abdominal, Pharmacist may modify dose per [facility] dose optimization consult agreement: Yes azithromycin 500 mg tab(s) (ZITHROMAX) (CANCELED) 500 mg, ORAL, DAILY, First dose on Thu04/02/25 at 1230, Until Discontinued, Antimicrobial indication: Pathogen-directed, Infectious source(s): Intra-abdominal, Pharmacist may modify dose per [facility] dose optimization consult agreement: Yes 1317 (Given - Provider: Serafin Garcia RN) 0926 (Given - Provider: Florida Sbaa RN) 09 (Given - Provider: Lucia Head, PIETRO) colestipol 5 g tab(s) (COLESTID) 5 g, ORAL, 2 TIMES DAILY, First dose on Thu03/31/25 at 1000, Until Discontinued, Swallow whole; DO NOT crush or chew. 0900 (Not Given - Provider: Serafin Garcia RN - Reason: Patient Declined. LIP Notified)2100 (Not Given - Provider: Tiffany Allred RN - Reason: Patient Declined. LIP Notified - Comment: Pt reports she was told not to take this.) 0900 (Not Given - Provider: Florida Saba RN - Reason: Patient Declined. LIP Notified)1926 (Not Given - Provider: Susan Breen RN - Reason: Patient Declined. LIP Notified - Comment: per pt request) 0900 (Not Given - Provider: Lucia Head RN - Reason: Patient Declined. LIP Notified) diphenhydrAMINE 25 mg injection (BENADRYL) (COMPLETED) 25 mg, INTRAVENOUS, ONCE, 1 dose, On Thu04/02/25 at 0230 0230 (Given - Provider: Tiffany Allred, PIETRO) gabapentin 900 mg cap(s) (NEURONTIN) 900 mg, ORAL, EVERY 8 HOURS, First dose (after last reorder) on Thu03/31/25 at 0930, Until Discontinued 0500 (Given - Provider: Tiffany Allred, PIETRO)1317 (Given - Provider: Serafin Garcia RN)2104 (Given - Provider: Tiffany Allred, PIETRO) 0617 (Given - Provider: Tiffany Allred, RN)1313 (Given - Provider: Florida Saba RN)1925 (Given - Provider: Susan Breen, RN - Comment: per pt request) 0421 (Given - Provider: Susan Breen RN - Comment: per pt request)1341 (Given - Provider: Lucia Head, RN) HYDROmorphone 0.4 mg injection (DILAUDID) (COMPLETED) 0.4 mg, INTRAVENOUS, ONCE, 1 dose, On Thu04/02/25 at 0500, Caution: IV hydromorphone is approximately 8 times MORE POTENT than IV morphine. For example, hydromorphone 1mg IV = morphine 8mg IV 0500 (Given - Provider: Tiffany Allred RN) lactobacillus rhamnosus 10 billion cell (CULTURELLE) capsule 1 capsule, ORAL, DAILY, First dose on Thu04/03/25 at 1330, Until Discontinued 1313 (Given - Provider: Florida Saba RN) 0922 (Given - Provider: Lucia Head, RN) levothyroxine 50 mcg tab(s) (SYNTHROID) 50 mcg, ORAL, DAILY AT 6 AM, First dose on Thu03/31/25 at 0600, Until Discontinued, Do not give breakfast until 30 minutes after levothyroxine dose, administer on an empty stomach. Administer 2 hours before or 2 hours after antacids, calcium or iron or foods containing these items. Tube feedings should be held for 1 hour before and 1 hour after administration. 0500 (Given - Provider: Tiffany Allred RN) 0617 (Given - Provider: Tiffany Allred RN) 0421 (Given - Provider: Susan Breen RN) dvnifx-qytokhup-gsbqwfe 3 capsule cap(s) (CREON 24) 3 capsule, ORAL, 3 TIMES DAILY W/MEALS, First dose on Thu03/31/25 at 0900, Until Discontinued, CREON 24 - DO NOT crush or chew. Contents may be mixed with apple sauce. 0806 (Given - Provider: Serafin Garcia RN)1317 (Given - Provider: Serafin Garcia RN)1549 (Given - Provider: Daniel Petit RN) 0900 (Not Given - Provider: Florida Saba RN - Reason: Patient Declined. LIP Notified)1313 (Given - Provider: Florida Saba RN)1700 (Not Given - Provider: Florida Saba RN - Reason: Previously Given/Taken) 0922 (Given - Provider: Lucia Head RN)1341 (Given - Provider: Lucia Head RN) memantine 10 mg tab(s) (NAMENDA) 10 mg, ORAL, 2 TIMES DAILY, First dose on Thu03/31/25 at 0900, Until Discontinued 08 (Given - Provider: Serafin Garcia RN)210 (Given - Provider: Tiffany Allred RN) 09 (Given - Provider: Florida Saba, RN)192 (Given - Provider: Susan Breen RN - Comment: per pt request) 09 (Given - Provider: Lucia Head RN) pantoprazole DR 40 mg tab(s) (PROTONIX) 40 mg, ORAL, DAILY AT 6 AM, First dose on 04/02/25 at 1230, Until Discontinued, Swallow whole; DO NOT crush or chew. 1317 (Given - Provider: Serafin Garcia RN) 0617 (Given - Provider: Tiffany Allred RN) 0421 (Given - Provider: Susan Breen RN - Comment: per pt request) sucralfate 1 g tab(s) (CARAFATE) 1 g, ORAL, 2 TIMES DAILY BEFORE MEALS, First dose on 04/02/25 at 1600, Until Discontinued, PLEASE dissolve whole tablet in 20 mL of water for administration by mouth 1548 (Given - Provider: Daniel Petit RN) 0617 (Given - Provider: Tiffany Allred RN - Comment: Dissolved in water)1623 (Given - Provider: Florida Saba, PIETRO) 0431 (Given - Provider: Susan Breen RN - Comment: per pt request) Continuous Medication Order 04/02/2025 04/03/2025 04/04/2025 lactated ringers iv infusion () 100 mL/hr, INTRAVENOUS, CONTINUOUS, Starting on 04/01/25 at 0830, Until 04/02/25 at 0829 0420 (New Bag/Syringe/Bottle - Provider: Tiffany Allred RN - Comment: [Order ends at this time. Document the following action when infusion is complete: Infusion Complete])08 (Infusion Complete - Provider: Serafin Garcia RN - Comment: [Order ends at this time. Document the following action when infusion is complete: Infusion Complete]) PRN Medication Order 04/02/2025 04/03/2025 04/04/2025 acetaminophen 650 mg tab(s) (TYLENOL) 650 mg, ORAL, EVERY 6 HOURS NEEDED, Starting on Thu03/31/25 at 0431, Until Thu04/04/25 at 1723, Mild Pain (1-3) - Enteral, If ordered PRN for pain, patient/guardian may elect to receive this medication for higher pain levels INSTEAD of the opioid, if preferred: Yes 0017 (Given - Provider: Tiffany Allred RN)1313 (Given - Provider: Florida Saba, RN) ALPRAZolam 0.5 mg tab(s) (XANAX) 0.5 mg, ORAL, AT BEDTIME NEEDED, Starting on Thu03/31/25 at 0431, Until Thu04/04/25 at 1723, Anxiety - First Line - Enteral benzocaine 1 lozenge (CHOLORASEPTIC WARMING SORE THROAT) 1 lozenge, MUCOUS MEMBRANE (TOPICAL MOUTH & THROAT), EVERY 2 HOURS NEEDED, Starting on Thu04/02/25 at 2204, Until Thu04/04/25 at 1723, Sore Throat 2214 (Given - Provider: Tiffany Allred RN) diphenhydrAMINE 50 mg injection (BENADRYL) 50 mg, INTRAVENOUS, EVERY 6 HOURS NEEDED, Starting on Thu03/31/25 at 0431, Until Thu04/04/25 at 1723, itching/rash 0105 (Given - Provider: Tiffany Allred RN)0211 (Given - Provider: Tiffany Allred RN)0953 (Given - Provider: Serafin Garcia, RN)1836 (Given - Provider: Daniel Petit, RN) 0037 (Given - Provider: Tiffany Allred, PIETRO)0617 (Given - Provider: Tiffany Allred, PIETRO)1318 (Given - Provider: Florida Saba, RN)2035 (Given - Provider: Susan Breen, PIETRO) 0406 (Given - Provider: Susan Breen, PIETRO)1013 (Given - Provider: Darline Parham RN) HYDROmorphone 0.4 mg injection (DILAUDID) (CANCELED) 0.4 mg, INTRAVENOUS, EVERY 4 HOURS NEEDED, Starting on Thu04/01/25 at 1613, Until 04/02/25 at 1038, Severe Pain (>/=7) - Parenteral, Caution: IV hydromorphone is approximately 8 times MORE POTENT than IV morphine. For example, hydromorphone 1mg IV = morphine 8mg IV 0421 (Given - Provider: Tiffany Allred RN)0953 (Given - Provider: Serafin Garcia RN) NaCl 0.9% iv flush bag 20 mL, INTRAVENOUS, NEEDED, Starting on Thu03/31/25 at 0122, Until Thu04/04/25 at 1723, See admin instructions, If no compatible primary is already running, infuse NaCl 0.9% as primary to flush tubing after non-chemotherapy, non-immunotherapy intermittent infusions. Administer at the same rate as intermittent infusion. Select the Flush Bag file on smart pump. ondansetron (PF) 4 mg injection (ZOFRAN)(Linked Group 1) 4 mg, INTRAVENOUS, EVERY 6 HOURS NEEDED, Starting on Thu03/31/25 at 0431, Until Thu04/04/25 at 1723, Nausea/Vomiting - First Line - Parenteral, Give IV push over 2 minutes. Use when patient unable to take medications by mouth. 0558 (Given - Provider: Tiffany Allred RN)1539 (Given - Provider: Daniel Petit RN)2104 (Given - Provider: Tiffany Allred RN) 0340 (Given - Provider: Tiffany Allred RN)0926 (Given - Provider: Florida Saba RN)1649 (Given - Provider: Kevin Corrales RN)2314 (Given - Provider: Susan Breen RN) 0640 (Given - Provider: Susan Breen, PIETRO)1230 (Given - Provider: Lucia Head, PIETRO) ondansetron 4 mg tab(s) (ZOFRAN)(Linked Group 1) 4 mg, ORAL, EVERY 6 HOURS NEEDED, Starting on Thu03/31/25 at 0431, Until Thu04/04/25 at 1723, Nausea/Vomiting - First Line - Enteral, Use when patient is able to take medications by mouth. 0558 (See Alternative - Provider: Tiffany Allred RN)1539 (See Alternative - Provider: Daniel Petit RN)2104 (See Alternative - Provider: Tiffany Allred RN) 0340 (See Alternative - Provider: Tiffany Allred RN)0926 (See Alternative - Provider: Florida Saba RN)1649 (See Alternative - Provider: Kevin Corrales RN)2314 (See Alternative - Provider: Susan Breen, PIETRO) 0640 (See Alternative - Provider: Susan Breen, PIETRO)1230 (See Alternative - Provider: Lucia Head, RN) oxyCODONE IR 5 mg tab(s) (ROXICODONE) (CANCELED) 5 mg, ORAL, EVERY 6 HOURS NEEDED, Starting on 03/31/25 at 1019, Until 04/02/25 at 1202, Moderate Pain (4-6) - Enteral, pain 0105 (Given - Provider: Tiffany Allred RN)0806 (Given - Provider: Serafin Garcia RN) oxyCODONE IR 5-10 mg tab(s) (ROXICODONE) 5-10 mg, ORAL, EVERY 4 HOURS NEEDED, Starting on 04/02/25 at 1201, Until 04/04/25 at 1723, Severe Pain (>/=7) - Enteral 1539 (Given - Provider: Daniel Petit RN)2104 (Given - Provider: Tiffany Allerd RN) 0340 (Given - Provider: Tiffany Allred RN)0926 (Given - Provider: Florida Saba, RN)1447 (Given - Provider: Florida Saba, RN)1925 (Given - Provider: Susan Breen RN)2314 (Given - Provider: Susan Breen, PIETRO) 0406 (Given - Provider: Susan Breen, PIETRO)0922 (Given - Provider: Lucia Head, RN)1341 (Given - Provider: Lucia Head, RN) prochlorperazine 10 mg tab(s) (COMPAZINE) (CANCELED) 10 mg, ORAL, EVERY 8 HOURS NEEDED, Starting on 04/01/25 at 1613, Until 04/03/25 at 2016, Nausea/Vomiting - Second Line - Enteral 0814 (Given - Provider: Serafin Garcia RN) 0017 (Given - Provider: Tiffany Allred RN)1313 (Given - Provider: Florida Saba RN) prochlorperazine 5 mg injection (COMPAZINE) 5 mg, INTRAVENOUS, EVERY 6 HOURS NEEDED, Starting on Thu04/03/25 at 2015, Until Thu04/04/25 at 1723, Nausea/Vomiting - Second Line - Parenteral, Protect From Light 2034 (Given - Provider: Susan Breen, RN) 0421 (Given - Provider: Susan Breen, PIETRO)1012 (Given - Provider: Darline Parham RN) tiZANidine 4 mg tab(s) (ZANAFLEX) 4 mg, ORAL, EVERY 8 HOURS NEEDED, Starting on Thu04/03/25 at 1812, Until Thu04/04/25 at 1723, Muscle Spasm - First Line - Enteral, tiZANidine cap(s) (ZANAFLEX) substituted to tiZANidine tab(s) (ZANAFLEX) per Pharmacy and Therapeutic Committee 1832 (Given - Provider: Florida Saba RN) 0640 (Given - Provider: Susan Breen RN) zinc oxide ointment 20% TOPICAL, NEEDED, Starting on Thu03/31/25 at 0943, Until Thu04/04/25 at 1723, itching/rash, FOR EXTERNAL USE ONLY APPLY TO: peg tube site Linked Groups Order Group 1: ondansetron 4 mg tab(s) (ZOFRAN)Jump to med 4 mg, ORAL, EVERY 6 HOURS NEEDED, Starting on Thu03/31/25 at 0431, Until Thu04/04/25 at 1723, Nausea/Vomiting - First Line - Enteral, Use when patient is able to take medications by mouth. Or ondansetron (PF) 4 mg injection (ZOFRAN)Jump to med 4 mg, INTRAVENOUS, EVERY 6 HOURS NEEDED, Starting on Thu03/31/25 at 0431, Until Thu04/04/25 at 1723, Nausea/Vomiting - First Line - Parenteral, Give IV push over 2 minutes. Use when patient unable to take medications by mouth. documented in this encounter Care Teams Hand Meat Salter Relationship Specialty Start Date End Date Shlomo Hu II, MD [address] [place] [address] PCP - General Internal Medicine 10/06/23 Jacob Sharp [address] [place] [id number] Referring 04/30/[address] [place] [id number] Registered Dietitian Nutrition 06/24/[address] [place] [id number] Registered Dietitian Nutrition 08/27/23 Yuan Miller MD, PhD [address] [place] [address] Surgeon General Surgery 02/03/24 documented as of this encounter
--- OUTSIDE RECORDS SUMMARY | 2025-04-03 23:59 | XMS_ITS | Encounter Summary ---
Author Organization [facility] Address [address] [place] [address] Care Team Providers Care Air And Water Filler Name Role Phone Jacob Sharp Unavailable AmanStevera TRUONG Unavailable [phone] Unavailable [phone] Fritz HENDERSON MD, Shlomo B Primary Care Provider [phone] Yuan Miller MD, PhD Unavailable [phone] Source Comments In the event this information is protected by the Federal Confidentiality of Alcohol and Drug AbusePatient Records regulations: The Federal rules restrict any use of the information to criminally investigate or prosecute any alcohol or drug abuse patient.[facility] Encounter Details Date Type Department Care Team (Late st Contact Info) Description 04/03/2025 11:59 PM EDT Anesthesia Event [facility] Surgical Services [facility] [place] [address] Maylin Bradshaw, JOSE.PACU NURSE [address] [place] [address] Anesthesia Record Procedure Summary Procedure Name Responsible Anesthesiologist Anesthesia Start Time Anesthesia Stop Time LAPAROSCOPIC JEJUNOSTOMY (Abdomen) Events No events on file. Meds * Agents No agents on file. * Blood No blood administrations on file. Lines, Drains, and Airways Type Details Placement Removal Wound Moisture; Abdomen; L eft, Lower; around Jtube insertion site, underneath bumper 10/20/24 0410 by Wound 10/17/24; 1617; Inci manuel; Laparoscopy Sites-Abdomen 10/17/24 1617 by Edie Carroll RN documented in this encounter Social History Tobacco Use Types Packs/Day Years Used Date Smoking Tobacco: Never Smokeless Tobacco: Never Alcohol Use Standard Drinks/Week Comments Not Currently 0 (1 standard drink = 0.6 oz pur e alcohol) [facility] Utilities Answer Date Recorded In the past 12 months has th e [employer], gas, oil, or water [employer] threatened to shut off services in your [...] living in a custodial (including now)? No 04/03/2025 Area Deprivation Index Answer Date Reagan rded National Score (1-100), lower number is lower ri sk 63 03/05/2023 State Score (1-10), lower number is lower risk 4 03/05/2023 Data from: https://www.neighborhoodatlas.medicine.[facility].edu/. Last address used for calculation [address] 03/05/2023 Comments No Sex [...] file Travel History Travel Start Travel End [place] 03/18/2025 03/26/2025 documented as of this encounter Functional Status [...] 10:00 AM EDT Hospital Encounter Admitting [address] [place] [place] [id number] Yuan Miller MD, PhD [address] [place] [phone] Nausea and vomiting, unspecified vomiting type [R11.2], H/O bariatric surgery [Z98.84], Jejunostomy tube fell out [T85.528A] 04/10/2025 10:00 AM EDT - 04/10/2025 12:00 PM EDT Surgery Admitting [address] [place] [address] Yuan Miller MD, PhD [address] [place] [address] LAPAROSCOPIC JEJUNOSTOMY 04/19/2025 11:00 AM EDT [facility] Neurological [facility]ist [address] [place] [address] Joann Loera APRN.GENETICS TEACHER [address] [place] [address] Cognitive movement issues 04/21/2025 8:30 AM EDT [facility] Nutrition Therapy [address] [address] Tiffany Banks, RD [address] [place] [phone] f/u TF forula tolerance and hydration 05/18/2025 9:00 AM EDT [facility] General Surgery [address] [place] [address] Michael Mora PA-C [address] [place] [address] f/u with michael mora in 2 wks 05/29/2025 9:00 AM EDT [facility] Gastroenterology [address] [address] Johanna Martinez MD [facility] [address] [address] 3 month follow up 06/28/2025 10:00 AM EDT [facility] Neurology Pain [address] [place] [phone] [place] [address] [place] [id number] Follow up for pain Scheduled Procedures Name Priority Associated Diagnoses Date/Ti me LAPAROSCOPIC JEJUNOSTOMY Nausea and vomiting, unspecified vomiting type H/O bariatric surgery Jejunostomy tube fell out 04/10/2025 10:00 AM EDT documented as of this encounter Visit Diagnoses Not on filedocumented in this encounter Care Teams Air And Water Filler Relationship Specialty Start Date End Date Shlomo Hu II, MD [address] [facility] [address] [place] [address] PCP - General Internal Medicine 10/06/23 Jacob Sharp [address] [place] [phone] Referring 04/30/[address] [address] Registered Dietitian Nutrition 06/24/[address] [place] [phone] Registered Dietitian Nutrition 08/27/23 Yuan Miller MD, PhD [address] [place], [place] [phone] Surgeon General Surgery 02/03/24 documented as of this encounter
--- OUTSIDE RECORDS SUMMARY | 2025-04-06 08:00 | XMS_ITS | Encounter Summary ---
Author Organization [facility] Address [address] [facility] [place] [address] Care Team Providers Care Fine Arts Packer Name Role Phone Shlomo Hu MD Primary Care Provider Jess Marsh LPN Unavailable Esthela Tesfaye MANAGER FRENCH Unavailable [phone] Reason for Referral * Imaging (Routine) - Authorized Specialty Diagnoses / Procedures Referred By Contac t Referred To Contact External Auditor Diagnoses History of campylobacteriosis Procedures IR CVC midline Angelina Polk, PINION STAKER [address] [facility] [address] [place] [address] Phone: tel: fax: [facility] [address] [place] [phone] Referral ID Status Reason Start Date Expiration Date V isits Requested Visits Authorized [id number] Authorized 04/06/2025 10/03/2025 1 1 Encounter Details Date Type Department Care Team (Late st Contact Info) Description 04/06/2025 8:00 AM EDT [facility] 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 Not on file Not on file documented as of this encounter Last Filed Vital Signs Vital Sign Reading Time Taken Comments Blood Pressure 118/64 04/06/2025 8:09 AM EDT Pulse 102 04/06/2025 8:09 AM EDT Temperature - - Respiratory Rate 16 04/06/2025 8:09 AM EDT Oxygen Saturation 97% 04/06/2025 8:09 AM EDT Inhaled Oxygen Concentration - - Weight 97.1 kg (214 lb) 04/06/2025 8:09 AM EDT Height 175.3 cm (5' 9 ) 04/06/2025 8:09 AM EDT Body Mass Index 31.6 04/06/2025 8:09 AM EDT documented in this encounter Functional Status * Over the past 2 weeks, how often have you been bothered by any of the following problems? Question Answer Date of Assessment Author Little interest or pleasure in doing things Several days 04/06/2025 8:03 AM EDT PARTHA WOLFE Feeling down, depressed, or hopeless Several days 03/15 8:03 AM EDT PARTHA WOLFE Patient Health Questionnaire-2 Score 2 03/15 8:03 AM EDT PARTHA WOLFE * If you checked off any problems on this questionnaire so far, Question Answer Date of Assessment Author How difficult have these problems made it for you to do your work, take care of things at home, or get along with other people? Somewhat difficult 04/06/2025 8:03 AM EDT PARTHA WOLFE documented as of this encounter Plan of Treatment Upcoming Encounters Date Type Department Care Team (Late st Contact Info) Description 04/20/2025 3:00 PM EDT Office Visit [facility] [address] [facility] [address] [place] [phone] Sonny Rodriguez, DPLudmila [address] [address] 05/04/2025 2:50 PM EDT Office Visit [facility] [address] [facility] [address] [place] [address] Sonny Rodriguez DPM [address] [address] Scheduled Orders Name Type Priority Associated Diagnoses Orde r Schedule IR CVC midline Imaging Routine History of campylobacteriosis Expected: 04/06/2025, Expires: 04/06/2026 documented as of this encounter Visit Diagnoses Diagnosis History of campylobacteriosis- Primary Chronic pain syndrome documented in this encounter Additional Health Concerns Assessment Noted Time PHQ-9 Depression Total Score: 18 024 9:42 AM EDT documented as of this encounter Care Teams Fine Arts Packer Relationship Specialty Start Date End Date Shlomo Hu MD [address] [facility] [address] [place] [address] PCP - General Internal Medicine 02/15/23 Jess Marsh LPN [address] [facility] [address] [place] [address] 12/06/24 Esthela Tesfaye, KIRA [address] [place] [address] Territory Manager Family Medicine 02/03/25 documented as of this encounter
--- OUTSIDE RECORDS SUMMARY | 2025-04-06 12:27 | XMS_ITS | Encounter Summary ---
Author Organization [facility] [employer] [facility] tem Address [id number] [address] [place] [address] Care Team Providers Care Planning Management It Specialist Name Role Phone Skylar Echavarria APRN-DIRECTOR OF OUTSIDE SALES Primary Care Provider + Reason for Visit * Diagnostic Imaging (Routine) - Pending Review Specialty Diagnoses / Procedures Referred By Contac t Referred To Contact Radiology Diagnoses History of campylobacteriosis Procedures IR PICC line PICC RN without port pump more than 5 years without guidance IR PICC line PICC RN without port pump less than 5 years without guidance Angelina Polk, PRODUCTION STAFF WORKER-DIRECTOR OF OUTSIDE SALES [address] [place] [address] Phone: tel: fax: Referral ID Status Reason Start Date Expiration Date V isits Requested Visits Authorized [id number] Pending Review 04/06/2025 04/06/2026 1 1 Encounter Details Date Type Department Care Team (Latest Contact Info) Description 04/06/2025 12:27 PM EDT - 04/06/2025 11:59 PM EDT Hospital Encounter [facility] - Radiology [address] [place] [address] History of campylobacteriosis Discharge Disposition: Home Social History Tobacco Use [...] How often do you attend chur or spiritism services? Patient declined 05/08/2022 Do you belong [...] Answer Date Recorded Total Score 15 08/17/2024 [facility] [place] of Occupat ional Health - Occupational Stress [...] Recorded Do you need help finding a [facility] career center and/or a training [...] on file documented as of this encounter Medications at Time of Discharge ALPRAZolam (XANAX) 0.5 mg tablet Take 1 tablet (0.5 mg total) by mouth as needed. 10/08/2023 baclofen 5 mg tablet Q8H 07/20/2023 cholecalciferol, vitamin D3, 25 mcg (1,000 unit) capsule 1 capsule (1,000 Units total). 10/08/2023 cholecalciferol, vitD3,/vit K2 (vitamin D3-vitamin K2) 125-90 mcg capsuleIndications: Vitamin D deficiency Take 1 capsule by mouth in the morning. 100 capsule 3 12/03/2023 clobetasoL (TEMOVATE) 0.05 % creamIndications:Vu lvar itching Apply 1 Application topically in the morning and 1 Application before bedtime. 30 g 08/05/2024 cyanocobalamin (VITAMIN B-12) 1,000 mcg/mL injection Inject 1 mL (1,000 mcg total) into the appropriate muscle once a week. dextroamphetamine-a mphetamine (ADDERALL) 20 mg tablet Take 1 tablet (20 mg total) by mouth in the morning. 04/14/2022 dicyclomine (BENTYL) 20 mg tablet Twice daily 07/20/2023 diphenhydrAMINE (BENADRYL) 12.5 mg/5 mL elixir Take by mouth 4 (four) times a day as needed for itching. eletriptan (RELPAX) 40 mg tablet As needed for migranes estradioL (ESTRACE) 0.01 % (0.1 mg/gram) vaginal creamIndications:Po st-menopause atrophic vaginitis insert 1 gram vaginally two times a week 42.5 g 02/06/2023 estradioL (ESTRACE) 0.5 mg tabletIndications:V asomotor symptoms due to menopause Take 1 tablet (0.5 mg total) by mouth in the morning. 30 tablet 2 08/17/2024 flibanserin 100 mg tabletIndications:L ow libido Take 100 mg by mouth in the morning. 30 tablet 2 08/17/2024 gabapentin (NEURONTIN) 300 mg capsuleIndications: Pain in extremity at multiple sites Take 1 capsule (300 mg total) by mouth 2 (two) times a day as needed (numbness and tingling lower extremities). 60 capsule 01/01/2024 hydrOXYzine (ATARAX) 10 mg tablet Take 1 tablet (10 mg total) by mouth every 8 (eight) hours as needed. 11/18/2023 levothyroxine (SYNTHROID, LEVOTHROID) 50 MCG tablet Take 1 tablet (50 mcg total) by mouth in the morning. 08/16/2022 fwxkzj-qkfgfpye-xcv lase (CREON) 24,000-76,000 -120,000 unit capsule,delayed release(DR/EC) Take 1 capsule (24,000 units of lipase total) by mouth in the morning and 1 capsule (24,000 units of lipase total) at noon and 1 capsule (24,000 units of lipase total) in the evening. Take with meals. metoprolol succinate XL (TOPROL XL) 25 mg 24 hr tablet multivitamin capsule Take 1 capsule by mouth in the morning. octreotide (SandoSTATIN) 100 mcg/mL injection Infuse 1 mL (100 mcg total) into a venous catheter 3 (three) times a day. OLANZapine (ZyPREXA) 5 mg tablet Take 1 tablet (5 mg total) by mouth nightly. ondansetron ODT (ZOFRAN ODT) 8 mg disintegrating tablet Dissolve 1 tablet (8 mg total) on tongue every 8 (eight) hours as needed for nausea or vomiting. 08/17/2023 oxyCODONE (ROXICODONE) 5 mg/5 mL solution Take 5 mL (5 mg total) by mouth every 4 (four) hours as needed. 04/11/2022 oxyCODONE-acetamino phen (PERCOCET) 10-325 mg per tablet 1 tablet. 10/28/2023 pantoprazole (PROTONIX) [address] for susp in packet daily. 05/04/2022 prochlorperazine (COMPAZINE) 5 mg tablet Take 1 tablet (5 mg total) by mouth every 6 (six) hours as needed for nausea or vomiting. 30 tablet 05/08/2022 promethazine (PHENERGAN) 25 mg suppository EVERY 4-6 HOURS 10/28/2023 Ringer's solution,lactated (lactated ringer's) infusion Infuse 100 mL/hr into a venous catheter as needed. 10/27/2023 sucralfate (CARAFATE) 1 gram tablet Take 1 tablet (1 g total) by mouth in the morning and 1 tablet (1 g total) at noon and 1 tablet (1 g total) in the evening and 1 tablet (1 g total) before bedtime. 120 tablet 3 05/08/2022 thiamine HCl (VITAMIN B-1) 100 mg tablet take 1 tablet by mouth once daily traZODone (DESYREL) 100 mg tablet 200 mg at bedtime 01/25/2024 venlafaxine XR (EFFEXOR XR) 75 mg 24 hr capsuleIndications: anxiety with depression Take 1 capsule (75 mg total) by mouth in the morning. Indications: anxiousness associated with depression. vitamin A 55193 units capsule take 1 capsule by mouth once daily 12/17/2023 zinc-vit C-pyridoxine, vit B6, 12-60-0.5 mg lozenge Daily 10/08/2023 documented as of this encounter Plan of [...] Procedure Name Priority Date/Time Associated Diagnosis Comments IR PICC LINE PICC RN WO 5+ W GUIDANCE Routine 04/06/2025 2:22 PM EDT History of campylobacteriosis documented in this encounter Results * IR PICC line PICC RN without port pump more than 5 years without guidance (04/06/2025 2:22 PM EDT) Anatomical Region Laterality Modality IR N/A Radio Fluoroscop y Narrative 04/06/2025 2:22 PM EDT No Reading Required. This procedure does not require a formal dictation. Non-Radiologist provider performed procedures can be reviewed under Post-Op, Procedure or Progress notes. For full report details, please reach out to your physician. Effective 01/29/2021 this image will be visible to you in [employer] us Angelina Polk PRODUCTION STAFF WORKER-DIRECTOR OF OUTSIDE SALES IMG IR ORDERABLES Edited R esult - Final documented in this encounter Visit Diagnoses Diagnosis History of campylobacteriosis documented in this encounter Additional Health Concerns Assessment Noted Time PHQ-9 Depression Total Score: 15 024 9:02 AM EST A Body Mass Index follow-up plan has been documented for the patient 08/17/2024 10:11 AM EST documented as of this encounter Care Teams Planning Management It Specialist Relationship Specialty Start Date End Date Skylar Echavarria APRN-ALEXEI [address] [place] [address] PCP - General Internal Medicine 11/18/23 documented as of this encounter
--- OUTSIDE RECORDS SUMMARY | 2025-04-09 11:48 | XMS_ITS | Encounter Summary ---
Author Organization [facility] Address [address] [place] [address] Care Team Providers Care Manager Consumer Insights Name Role Phone Jacob Sharp Unavailable Rasheeda Newton RD Unavailable [phone] Unavailable [phone] Fritz HENDERSON MD, Shlomo Momin Primary Care Provider [phone] Yuan Miller MD, PhD Unavailable [phone] Source Comments In the event this information is protected by the Federal Confidentiality of Alcohol and Drug AbusePatient Records regulations: The Federal rules restrict any use of the information to criminally investigate or prosecute any alcohol or drug abuse patient.[facility] Encounter Details Date Type Department Care Team (Late st Contact Info) Description 02/29/2024 Get Medical Advice General Surgery [address] [place] [address] Yuan Miller MD, PhD [address] [place] [address] Diagnosis Social History Tobacco Use [...] is lower risk 4 03/05/2023 Data from: https://www.neighborhoodatlas.medicine.[facility].edu/. Last address used for calculation [...] file Travel History Travel Start Travel End [place] 03/18/2025 03/26/2025 documented as of this encounter [...] 04/10/2025 10:00 AM EDT Hospital Encounter Admitting [address] [place] [address] Yuan Miller MD, PhD [address] [place] [address] Nausea and vomiting, unspecified vomiting type [R11.2], H/O bariatric surgery [Z98.84], Jejunostomy tube fell out [T85.528A] 04/10/2025 10:00 AM EDT - 04/10/2025 12:00 PM EDT Surgery Admitting [address] [place] [address] Yuan Miller MD, PhD [address] [place] [address] LAPAROSCOPIC JEJUNOSTOMY 04/19/2025 11:00 AM EDT [facility] Neurological Cheondoism [address] [place] [phone] Joann Loera, JOSE.VENUE ATTENDANT [address] [place] [address] Cognitive movement issues 04/21/2025 8:30 AM EDT [facility] Nutrition Therapy [address] [phone] Tiffany Banks, RD [address] [phone] f/u TF forula tolerance and hydration 05/18/2025 9:00 AM T [facility] General Surgery [address] [phone] Michael Mora PA-C [address] [place] [address] f/u with michael mora in 2 wks 05/29/2025 9:00 AM T [facility] Gastroenterology [address] [place] [address] [phone] Johanna Martinez MD [facility] [address] [place], [place] [phone] 3 month follow up 06/28/2025 10:00 AM T [facility] Neurology Pain [address] [place] [place] [phone] [place] [address] [place] [address] Follow up for pain Scheduled Procedures Name [...] as of this encounter Care Teams Manager Consumer Insights Relationship Specialty Start Date End Date Shlomo Hu II, MD 112 [facility] [address] [place] [address] PCP - General Internal Medicine 10/06/23 Jacob Sharp [address] [phone] Referring 04/30/[address] [place] [phone] Registered Dietitian Nutrition 06/24/[address] [facility] [place] [address] Registered Dietitian Nutrition 08/27/23 Yuan Miller MD, PhD [address] [place] [address] Surgeon General Surgery 02/03/24 documented as of this encounter
--- OUTSIDE RECORDS SUMMARY | 2025-04-09 11:49 | XMS_ITS | Encounter Summary ---
Author Organization [facility] Address [address] [place] [address] Care Team Providers Care Auto Body Repair Estimator Name Role Phone Jacob Sharp Unavailable Rasheeda Newton RD Unavailable [phone] Unavailable [phone] Fritz HENDERSON MD, Shlomo Momin Primary Care Provider [phone] Yuan Miller MD, PhD Unavailable [phone] Source Comments In the event this information is protected by the Federal Confidentiality of Alcohol and Drug AbusePatient Records regulations: The Federal rules restrict any use of the information to criminally investigate or prosecute any alcohol or drug abuse patient.[facility] Encounter Details Date Type Department Care Team (Late st Contact Info) Description 11/24/2024 Get Medical Advice [place]IN [place] [address] [address] [facility] [address] [place] [address] Johann Echeverria MD [address] [place] [address] [address] [place], [place] [phone] Medicine Social History Tobacco Use Types Packs/Day Years Used Date Smoking Tobacco: Never Smokeless Tobacco: Never Alcohol Use Standard Drinks/Week Comments Not Currently 0 (1 standard drink = 0.6 oz pur e alcohol) [facility] Utilities Answer Date Recorded In [...] is lower risk 4 03/05/2023 Data from: https://www.neighborhoodatlas.[facility]/. Last address used for calculation [address] [address] 03/05/2023 Comments No [...] file Travel History Travel Start Travel End [place] 03/18/2025 03/26/2025 documented as of this encounter [...] 10:00 AM EDT Hospital Encounter Admitting [address] [place] [address] Yuan Miller MD, PhD [address] [place] [address] [phone] Nausea and vomiting, unspecified vomiting type [R11.2], H/O bariatric surgery [Z98.84], Jejunostomy tube fell out [T85.528A] 04/10/2025 10:00 AM EDT - 04/10/2025 12:00 PM EDT Surgery Admitting [address] [phone] Yuan Miller MD, PhD [address] [phone] LAPAROSCOPIC JEJUNOSTOMY 04/19/2025 11:00 AM EDT [facility] Neurological Restorationist [address] [phone] Joann Loera APRN.HOME STEREO EQUIPMENT INSTALLER [address] [phone] Cognitive movement issues 04/21/2025 8:30 AM EDT [facility] Nutrition Therapy [address] [address] Tiffany Banks, RD [address] [place] [phone] f/u TF forula tolerance and hydration 05/18/2025 9:00 AM EDT [facility] General Surgery [address] [place] [address] Michael Mora PA-C [address] [place] [address] f/u with michael mora in 2 wks 05/29/2025 9:00 AM EDT [facility] Gastroenterology [address] [phone] Johanna Martinez MD [facility] [address] [phone] 3 month follow up 06/28/2025 10:00 AM EDT [facility] Neurology Pain [address] [place] [phone] [place] [address] [place], [place] [phone] Follow up for pain Scheduled Procedures Name Priority Associated Diagnoses Date/Ti me LAPAROSCOPIC JEJUNOSTOMY Nausea and vomiting, unspecified vomiting type H/O bariatric surgery Jejunostomy tube fell out 04/10/2025 10:00 AM EDT documented as of this encounter Visit Diagnoses Not on filedocumented in this encounter Care Teams Auto Body Repair Estimator Relationship Specialty Start Date End Date Shlomo Hu II, MD [address] [place] [address] [address] [place] [address] PCP - General Internal Medicine 10/06/23 Jacob Sharp [address] [phone] Referring 04/30/[address] [phone] Registered Dietitian Nutrition 06/24/[address] [facility] [place] [phone] Registered Dietitian Nutrition 08/27/23 Yuan Miller MD, PhD [address] [phone] Surgeon General Surgery 02/03/24 documented as of this encounter
--- OUTSIDE RECORDS SUMMARY | 2025-04-09 11:49 | XMS_ITS | Encounter Summary ---
Author Organization [facility] Address [address] [place] [address] Care Team Providers Care Leather Scraper Name Role Phone Shlomo Hu MD Primary Care Provider [phone] Jess Marsh LPN Unavailable Esthela Tesfaye ROLL SHEETING CUTTER Unavailable [phone] Encounter Details Date Type Department Care Team (Late st Contact Info) Description 03/31/2025 Clinisync Result Encounter [facility] External Department Unsolicited [...] Recorded Patient Health Questionnaire-2 Score 2 03/27/2025 [facility] Answer [...] 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 Not on file Not on file documented as of this encounter Plan of Treatment Upcoming Encounters Date Type Department Care Team (Late st Contact Info) Description 04/20/2025 3:00 PM EDT Office Visit [facility] 112 [facility] [address] [place] [address] Sonny Rodriguez DPM [address] [address] 05/04/2025 2:50 PM EDT Office Visit [facility] 112 [facility] [address] [place] [address] MichaelSonny Diony, DPM [address] [address] documented as of this encounter Procedures Procedure Name Priority Date/Time Associated Diagnosis Comments [facility] URINALYSIS COMPLETE PNL UR Routine 03/31/2025 1:01 PM EDT [facility] GI PATHOGENS STL MEAGAN+PROBE Routine 03/31/2025 8:02 AM EDT [facility] C DIFF TOX GENS STL QL MEAGAN+PROBE Routine 03/31/2025 8:02 AM EDT [facility] MAGNESIUM SERPL-MCNC Routine 03/31/2025 6:41 AM EDT documented in this encounter Results * (ABNORMAL) [facility] URINALYSIS COMPLETE PNL UR (03/31/2025 1:01 PM EDT) [facility] COLOR UR Yellow Yellow [facility]CF CLARITY SPEC Clear Clear [facility] CCF GLUCOSE UR STRIP-MCNC Negative Trace, Negative [facility]CF [facility]CF BILIRUB UR QL STRIP Negative Negative [facility] CCF KETONES UR QL STRIP Negative Negative, Trace [facility]CF C[facility] SP GR UR STRIP 1.044(H) 1.005 - 1.030 C[facility] CCF HGB UR QL STRIP Negative Negative, Trace [facility]CF CCF PH UR STRIP 6.0 5.0 - 8.0 CCF CCF PROT UR STRIP-MCNC 1+(A) Trace, Negative CCF [facility] UROBILINOGEN UR QL STRIP Normal Normal [facility]CF CCF NITRITE UR QL STRIP Negative Negative CCF CCF LEUKOCYTE ESTERASE UR QL STRIP Negative Negative, 25 Danielle/uL CCF CCF WBC #/AREA URNS HPF 6-10 /HPF(A) 0-5 /HPF [facility]CF RBC #/AREA URNS HPF 0-3 /HPF 0-3 /HPF CCF [facility]CF EPI CELLS #/AREA URNS HPF Few /HPF [facility] 03/31/2025 1:01 PM EDT 03/31/2025 1:21 PM EDT Narrative MONIKA - 03/31/2025 1:38 PM EDT Specimen Type: URINE SPECIMEN Ordering Facility: [facility] Address: [address] [place] [address] Original Ordering Provider: CECIL EMERSON Generic External Data Provider CL[facility] F inal Result Performing Organization Address [facility] Co de Phone Number [facility] [address] [place] [address] * (ABNORMAL) [facility] GI PATHOGENS STL MEAGAN+PROBE (03/31/2025 8:02 AM EDT) [facility] CAMPYLOBACTER DNA SPEC MEAGAN+PROBE Detected(A) Not Detected [facility] CCF SALMONELLA DNA SPEC QL MEAGAN+PROBE Not detected Not Detected [facility]CF CCF SHIGA TOXIN STX GENE SPEC MEAGAN+PROBE Not detected Not Detected [facility]CF CCF SHIGELLA DNA SPEC QL MEAGAN+PROBE Not detected Not Detected [facility] 03/31/2025 8:02 AM EDT 03/31/2025 1:46 PM EDT Narrative MONIKA - 03/31/2025 10:20 PM EDT Specimen Type: STOOL SPECIMEN Ordering Facility: [facility] Address: [address] [place] [address] Original Ordering Provider: BUDDY RAMOS Generic External Data Provider CLINIS[facility]NC F inal Result Performing Organization Address [facility] Co de Phone Number [facility] [address] [place] [address] [place] [address] * [facility]CF C DIFF TOX GENS STL QL MEAGAN+PROBE (03/31/2025 8:02 AM EDT) [facility] C DIFF TOX GENS STL QL MEAGAN+PROBE Negative for C. difficile toxin by PCR Negative for C. difficile toxin by PCR [facility] 03/31/2025 8:02 AM EDT 03/31/2025 1:46 PM EDT Narrative CLINISYNC - 03/31/2025 5:48 PM EDT Specimen Type: STOOL SPECIMEN Ordering Facility: [facility] Address: [address] [place] [address] Original Ordering Provider: BUDDY RAMOS Generic External Data Provider CLINISYNC F inal Result Performing Organization Address [facility] de Phone Number [facility] [address] [facility] [address] [place], [place] [phone] * [facility] MAGNESIUM SERPL-MCNC (03/31/2025 6:41 AM EDT) [facility] MAGNESIUM SERPL-MCNC 2.1 1.7 - 2.3 mg/dL CCF 03/31/2025 6:41 AM EDT 03/31/2025 7:04 AM EDT Narrative CLINISYNC - 03/31/2025 11:36 AM EDT Specimen Type: BLOOD SPECIMEN Ordering Facility: [facility] Address: [address] [place] [address] Original Ordering Provider: FLACA WEBB Generic External Data Provider CLINISYNC F inal Result Performing Organization Address [facility] de Phone Number [facility] [address] [place] [phone] documented in this encounter Visit Diagnoses Not on filedocumented in this encounter Additional Health Concerns Assessment Noted Time PHQ-9 Depression Total Score: 18 024 9:42 AM EDT documented as of this encounter Care Teams Leather Scraper Relationship Specialty Start Date End Date Shlomo Hu MD 112 [facility] 110 [place] [address] PCP - General Internal Medicine 02/15/23 Jess Marsh LPN 112 [facility] 110 [place] [address] 12/06/24 Esthela Tesfaye LSW [address] [place] [address] Senior Clinical Research Scientist Family Medicine 02/03/25 documented as of this encounter
--- OUTSIDE RECORDS SUMMARY | 2025-04-09 11:49 | XMS_ITS | Encounter Summary ---
Author Organization [facility] Address [address] [place] [address] Care Team Providers Care Quality Assurance Director Name Role Phone Jacob Sharp Unavailable Rasheeda Newton RD Unavailable [phone] Unavailable [phone] Fritz HENDERSON MD, Shlomo Momin Primary Care Provider [phone] Yuan Miller MD, PhD Unavailable [phone] Source Comments In the event this information is protected by the Federal Confidentiality of Alcohol and Drug AbusePatient Records regulations: The Federal rules restrict any use of the information to criminally investigate or prosecute any alcohol or drug abuse patient.[facility] Encounter Details Date Type Department Care Team (Late st Contact Info) Description 11/28/2024 Patient Msg Gastroenterology [address] [phone] Provider, Ccf follow up information Social History Tobacco Use Types Packs/Day Years Used Date Smoking Tobacco: Never Smokeless Tobacco: Never Alcohol Use Standard Drinks/Week Comments Not Currently 0 (1 standard drink = 0.6 oz pur e alcohol) [facility] Utilities Answer Date Recorded In the past 12 months has th e electric, gas, oil, or water Tower[employer] threatened to shut off services in your [...] risk 4 03/05/2023 Data from: https://www.neighborhoodatlas.medicine.[facility]/. Last address used for calculation [...] file Travel History Travel Start Travel End [place] 03/18/2025 03/26/2025 documented as of this encounter [...] 10:00 AM EDT Hospital Encounter Admitting [address] [place] [address] Yuan Miller MD, PhD [address] [place] [phone] Nausea and vomiting, unspecified vomiting type [R11.2], H/O bariatric surgery [Z98.84], Jejunostomy tube fell out [T85.528A] 04/10/2025 10:00 AM EDT - 04/10/2025 12:00 PM EDT Surgery Admitting [address] [place] [phone] Yuan Miller MD, PhD [address] [place] [phone] LAPAROSCOPIC JEJUNOSTOMY 04/19/2025 11:00 AM EDT [facility] Neurological [place] [address] [place], [place] [phone] Joann Loera APRN.INSPECTOR AND UNLOADER [address] [place] [phone] Cognitive movement issues 04/21/2025 8:30 AM EDT [facility] Nutrition Therapy [address] [address] Tiffany Banks, RD [address] [place] [address] f/u TF forula tolerance and hydration 05/18/2025 9:00 AM EDT [facility] General Surgery [address] [place] [address] Michael Mora PA-C [address] [place] [address] f/u with michael mora in 2 wks 05/29/2025 9:00 AM EDT [facility] Gastroenterology [address] [address] Johanna Martinez MD [facility] [address] [place] [address] 3 month follow up 06/28/2025 10:00 AM EDT [facility] Neurology Pain [address] [place] [address] [place] [address] [place], [place] [phone] Follow up for pain Scheduled Procedures Name Priority Associated Diagnoses Date/Ti me LAPAROSCOPIC JEJUNOSTOMY Nausea and vomiting, unspecified vomiting type H/O bariatric surgery Jejunostomy tube fell out 04/10/2025 10:00 AM EDT documented as of this encounter Visit Diagnoses Not on filedocumented in this encounter Care Teams Quality Assurance Director Relationship Specialty Start Date End Date Shlomo Hu II, MD 112 [facility] 110 [place] [address] PCP - General Internal Medicine 10/06/23 Jacob Sharp [address] [place] [phone] Referring 04/30/[address] [place] [phone] Registered Dietitian Nutrition 06/24/[address] [place] [address] Registered Dietitian Nutrition 08/27/23 Yuan Miller MD, PhD [address] [place] [address] Surgeon General Surgery 02/03/24 documented as of this encounter
--- OUTSIDE RECORDS SUMMARY | 2025-04-09 11:49 | XMS_ITS | Encounter Summary ---
Author Organization [facility] Address [address] [place] [address] Phone Care Team Providers Care Sharemilker Name Role Phone Yg James MD Primary Care Provider [phone] Shlomo Hu MD Primary Care Provider [phone] Encounter Details Date Type Department Care Team (Late st Contact Info) Description 06/24/2021 Orders Only [facility] [address] [place] [address] Conversion, Onbase Social History Tobacco Use Types [...] documented as of this encounter Care Teams Sharemilker Relationship Specialty Start Date End Date Yg James MD PCP - General 09/14/17 12/20/24 Shlomo Hu MD [address] [facility] 110 [place] [address] PCP - General Internal Medicine 12/21/24 documented as of this encounter
--- OUTSIDE RECORDS SUMMARY | 2025-04-09 11:49 | XMS_ITS | Encounter Summary ---
Author Organization [facility] Address [address] [place] [address] Care Team Providers Care Production Crew Supervisor Name Role Phone Shlomo Hu MD Primary Care Provider [phone] Jess Marsh LPN Unavailable Esthela Tesfaye SCIENCE EDITOR Unavailable [phone] Encounter Details Date Type Department Care Team (Late st Contact Info) Description 04/05/2025 Patient Outreach [facility] [address] [place] [id number] Jess Marsh LPN [address] [place] [address] [place] [address] Social History Tobacco Use Types [...] often do you attend chur ch or advent services? 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 Records in chart. BOOM complete. Medications reconciled per discharge. Pt states not feeling any better. Her arms, legs, hands and face are swollen. I ask if any of the medications she started at hospital are new. She states none of the medications she is taking are anything she hasn't had before. Pt knows to go to ER if symptoms become worse. Pt has appt in office 04/06. Pt does not believe the antibiotic the hospital prescribed is effectively treating her infection. She has surgery scheduled 04/10 for j tube replacement. Flowsheet Row Patient Outreach from 04/05/2025 in [facility] with Jess Marsh LPN Hospital Information ED, Hospital or [facility] Facility Discharge? Hospital Patient has been contacted within two business days of discharge Yes Diagnosis Intractable nausea and vomiting Discharge Date 04/04/25 Discharged To: [facility] Start Time 1532 Admission Date 03/30/25 Medications Discharge medications reviewed and reconciled from hospital? Yes Is the patient having any side effects they believe may be caused by any medication additions or changes? Yes [arm, legs, hands and face swelling. Has had all thees medicatuions before without issues.] Does the patient have all medications ordered at discharge? Yes Is the patient taking all medications as directed (includes completed medication regime)? Yes Medication Comments azithromycin 250 mg tablet, lactobacillus rhamnosus 10 billion cell capsule, oxyCODONE IR 5 mg immediate release tablet, pantoprazole DR 40 mg tablet Appointments Does the patient have a primary care provider? Yes [04/06] Nursing Interventions Verified appointment date/time/provider Does the patient have any upcoming specialty appointments? Yes Self Management Does patient have home health? yes What is the home health agency? [facility] Has home health visited the patient within 72 hours of discharge? No Patient Teaching Does the patient have access to their discharge instructions? Yes What is the patient's perception of their health status since discharge? Same Is the patient/caregiver able to teach back the hierarchy of who to call/visit for symptoms/problems? PCP, Specialist, Home Health nurse, Urgent Care, ED, 911 Yes Wrap Up Wrap Up Additional Comments Presented to ER with nausea, vomiting, diarrhea and abdominal pain admitted for management of symptoms and possible jejunostomy tube replacement. Possitive for Campylobacter diarrhea. LABS, CT abdomen/pelvis, UA,CLOSTRIDIUM DIFFICILE TOXIN BY PCR, an enteric bacterial panel completed. Call End Time 1549 documented in this encounter Plan of Treatment Upcoming Encounters Date Type Department Care Team ([facility] st Contact Info) Description 04/20/2025 3:00 PM EDT Office Visit [facility] [address] [facility] 120 [place] [address] Sonny Rodriguez DPM 3003 [facility] 5 [place] [address] 05/04/2025 2:50 PM EDT Office Visit [facility] [address] [facility] 120 [place] [address] Sonny Rodriguez DPM [address] [address] documented as of this encounter Visit Diagnoses Diagnosis Intractable nausea and vomiting- Primary Hypertrophic cardiomyopathy (HCC) Other primary cardiomyopathies DARREN (generalized anxiety disorder) Generalized anxiety disorder documented in this encounter Additional Health Concerns Assessment Noted Time PHQ-9 Depression Total Score: 18 024 9:42 AM EDT documented as of this encounter Care Teams Production Crew Supervisor Relationship Specialty Start Date End Date Shlomo Hu MD [address] [facility] 110 [place] [address] PCP - General Internal Medicine 02/15/23 eJss Marsh LPN [address] [facility] 110 [place] [address] 12/06/24 Esthela Tesfaye, KIRA [address] [place] [address] Memory Care Director Family Medicine 02/03/25 documented as of this encounter
--- OUTSIDE RECORDS SUMMARY | 2025-04-09 11:49 | XMS_ITS | Encounter Summary ---
Author Organization [facility] Address [address] [place] [address] Phone Care Team Providers Care Brownfield Redevelopment Specialist Name Role Phone Yg James MD Primary Care Provider [phone] Shlomo Hu MD Primary Care Provider [phone] Encounter Details Date Type Department Care Team (Late st Contact Info) Description 07/11/2021 Orders Only [facility] [address] [place] [address] Conversion, Onbase Social History Tobacco Use Types [...] documented as of this encounter Care Teams Brownfield Redevelopment Specialist Relationship Specialty Start Date End Date Yg James MD PCP - General 09/14/17 12/20/24 Shlomo Hu MD [address] [place] [place] [address] PCP - General Internal Medicine 12/21/24 documented as of this encounter
--- OUTSIDE RECORDS SUMMARY | 2025-04-09 11:49 | XMS_ITS | Encounter Summary ---
Author Organization [facility] Address [address] [facility] [place] [address] Care Team Providers Care Tying Machine Operator Name Role Phone Shlomo Hu MD Primary Care Provider [phone] Jess Marsh LPN Unavailable Esthela Tesfaye AREA RELIEF PILOT Unavailable [phone] Encounter Details Date Type Department Care Team (Late st Contact Info) Description 01/02/2025 Abstract [facility] [place] [facility] [address] [facility] 110 [place] [address] Shlomo Hu MD [address] [facility] 110 [place] [address] Social History Tobacco Use Types Packs/Day Years [...] do you attend chur or temple services? 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 [...] Visit [facility] [address] [facility] 120 [place] [address] Sonny Rodriguez DPM [address] [address] 05/04/2025 2:50 PM EDT Office Visit [facility] [address] [facility] 120 [place] [address] Sonny Rodriguez DPM [address] [address] documented as of this encounter Visit Diagnoses Not on filedocumented in this encounter Additional Health Concerns Assessment Noted Time PHQ-9 Depression Total Score: 18 024 9:42 AM EDT documented as of this encounter Care Teams Tying Machine Operator Relationship Specialty Start Date End Date Shlomo Hu MD [address] [facility] 110 [place] [address] PCP - General Internal Medicine 02/15/23 Jess Marsh LPN [address] [place] [address] [place] [address] 12/06/24 Esthela Tesfaye, KIRA [address] [place] [address] Hospitality Manager Family Medicine 02/03/25 documented as of this encounter
--- OUTSIDE RECORDS SUMMARY | 2025-04-09 11:49 | XMS_ITS | Encounter Summary ---
Author Organization [facility] Address [address] [place] [address] Care Team Providers Care Metal Washing Machine Operator Name Role Phone Jacob Sharp Unavailable Rasheeda Newton RD Unavailable [phone] Unavailable [phone] Fritz HENDERSON MD, Shlomo Momin Primary Care Provider [phone] Yuan Miller MD, PhD Unavailable [phone] Source Comments In the event this information is protected by the Federal Confidentiality of Alcohol and Drug AbusePatient Records regulations: The Federal rules restrict any use of the information to criminally investigate or prosecute any alcohol or drug abuse patient.[facility] Encounter Details Date Type Department Care Team (Late st Contact Info) Description 11/23/2024 Patient Msg Gastroenterology [address] [id number] Provider, Ccf issue with coverage for Viokace Social History Tobacco Use Types Packs/Day Years Used Date Smoking Tobacco: Never Smokeless Tobacco: Never Alcohol Use Standard Drinks/Week Comments Not Currently 0 (1 standard drink = 0.6 oz pur e alcohol) [facility] Utilities Answer Date Recorded In the past 12 months has th e electric, gas, oil, or water [employer] threatened to shut off services in your [...] lower risk 4 03/05/2023 Data from: https://www.neighborhoodatlas.medicine.[facility]/. Last address used for calculation [address] 03/05/2023 Comments No Sex and [...] 10:00 AM EDT Hospital Encounter Admitting 9500 [place] [address] Yuan Miller MD, PhD [address] [phone] Nausea and vomiting, unspecified vomiting type [R11.2], H/O bariatric surgery [Z98.84], Jejunostomy tube fell out [T85.528A] 04/10/2025 10:00 AM EDT - 04/10/2025 12:00 PM EDT Surgery Admitting 9500 [place] [address] Yuan Miller MD, PhD [address] [place] [address] LAPAROSCOPIC JEJUNOSTOMY 04/19/2025 11:00 AM EDT [facility] [address] [place] [address] Joann Loera APRN.CANCELING MACHINE OPERATOR [address] [place] [address] Cognitive movement issues 04/21/2025 8:30 AM EDT [facility] Nutrition Therapy [address] [address] Tiffany Banks, RD 9500 [place] [address] f/u TF forula tolerance and hydration 05/18/2025 9:00 AM EDT [facility] General Surgery [address]99 [place] [address] Michael Mora PA-C [address] [place] [address] f/u with michael mora in 2 wks 05/29/2025 9:00 AM EDT [facility] Gastroenterology [address] [phone] Johanna Martinez MD [facility] [address] [place] [address] 3 month follow up 06/28/2025 10:00 AM EDT [facility] Neurology Pain [address] [place] [address] [place] [address] [place] [address] Follow up for pain Scheduled Procedures Name Priority Associated Diagnoses Date/Ti me LAPAROSCOPIC JEJUNOSTOMY Nausea and vomiting, unspecified vomiting type H/O bariatric surgery Jejunostomy tube fell out 04/10/2025 10:00 AM EDT documented as of this encounter Visit Diagnoses Not on filedocumented in this encounter Care Teams Metal Washing Machine Operator Relationship Specialty Start Date End Date Shlomo Hu II, MD [address] [place] [address] PCP - General Internal Medicine 10/06/23 Jacob Sharp [address] [phone] Referring 04/30/[address] [place], [place] [id number] Registered Dietitian Nutrition 06/24/[address]00 [place] [address] Registered Dietitian Nutrition 08/27/23 Yuan Miller MD, PhD [address] [place] [address] Surgeon General Surgery 02/03/24 documented as of this encounter
--- OUTSIDE RECORDS SUMMARY | 2025-04-09 11:49 | XMS_ITS | Encounter Summary ---
Author Organization [facility] Address [address] [facility] [place] [address] Care Team Providers Care Senior Living Advisor Name Role Phone Shlomo Hu MD Primary Care Provider [phone] Jess Marsh LPN Unavailable Esthela Tesfaye BRAND ADVOCATE Unavailable [phone] Encounter Details Date Type Department Care Team (Late st Contact Info) Description 04/06/2025 External Result Encounter [facility] [address] [place] [address] [place] [address] Angelina Polk, FELICITA [address] [facility] 110 [place] [address] Social History Tobacco Use Types Packs/Day Years [...] Recorded Patient Health Questionnaire-2 Score 2 04/06/2025 [facility] - [...] living in a jail (including now)? 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 Not on [...] [address] [facility] 120 [place] [address] Sonny Rodriguez DPM [address] [address] 05/04/2025 2:50 PM EDT Office Visit [facility] [address] [facility] 120 [place] [address] Sonny Rodriguez DPM [address] [address] documented as of this encounter Procedures Procedure Name Priority Date/Time Associated Diagnosis Comments IR CVC PICC 04/06/2025 2:22 PM EDT documented in this encounter Results * IR CVC picc (04/06/2025 2:22 PM EDT) Anatomical Region Laterality Modality X-Ray Angiograph y 04/06/2025 2:22 PM EDT Narrative 04/06/2025 2:22 PM EDT THIS EXAM WAS PERFORMED AT [facility] No Reading Required. This procedure does not require a formal dictation. Non-Radiologist provider performed procedures can be reviewed under Post-Op, Procedure or Progress notes. For full report details, please reach out to your physician. Effective 01/29/2021 this image will be visible to you in MyChart. Procedure Note Radiology, Tarun, - 04/06/2025 THIS EXAM WAS PERFORMED AT [facility] No Reading Required. This procedure does not require a formal dictation. Non-Radiologist provider performed procedures can be reviewed under Post-Op, Procedure or Progress notes. For full report details, please reach out to your physician. Effective 01/29/2021 this image will be visible to you in MyChart. us Angelina Polk SENIOR ELECTRICAL PROJECT MANAGER IMG IR PROCEDURES Final Result documented in this encounter Visit Diagnoses Not on filedocumented in this encounter Additional Health Concerns Assessment Noted Time PHQ-9 Depression Total Score: 18 024 9:42 AM EDT documented as of this encounter Care Teams Senior Living Advisor Relationship Specialty Start Date End Date Shlomo Hu MD [address] [place] [place] [address] PCP - General Internal Medicine 02/15/23 Jess Marsh LPN [address] [place] [address] [place] [address] 12/06/24 Esthela Tesfaye, KIRA [address] [place] [address] Storage Wharfage Clerk Family Medicine 02/03/25 documented as of this encounter
--- OUTSIDE RECORDS SUMMARY | 2025-04-09 11:49 | XMS_ITS | Encounter Summary ---
Author Organization [facility] Address [address] [place] [address] Care Team Providers Care Pool Attendant Name Role Phone Shlomo Hu MD Primary Care Provider [phone] Jess Marsh LPN Unavailable Esthela Tesfaye STAMP COLLECTOR Unavailable [phone] Encounter Details Date Type Department Care Team (Late st Contact Info) Description 04/07/2025 Telephone [facility] [address] [place] [address] eJss Marsh LPN [address] [place] [place] [address] Social History Tobacco Use Types [...] How often do you attend chur or scientology services? 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 Let pt know that vomiting may be due to her infusions and PCP suggests continuing with the Ondansetron. If things don't improve or worsen over the weekend she should go to Hospital. I let pt know that PCP does not recommend stopping the antibiotic before it is completed. Pt voices understanding and ask proposal manager writer if Zofran order could be sent to [facility] and if proposal manager writer will call [facility] to besure it can be delivered to pt today or tomorrow morning. She states that way she get medication athome when needed instead of only when at infusion center. Highway Safety Engineer calls [facility] and they say they still have not received order. Highway Safety Engineer faxed these orders multiple times. They also state that theywould need a midline report and reasoning why pt can not take oral Zofran and it is possible it maynot be approved. I call pt back and let pt know that [facility] may not be able to approve IV Zofran but we can try. I remind pt she can still get this at infusion center when needed. I let pt know she has order for PRN Zofran oral in her medications. She states yes I forgot about that but fears that dose may not be strong enough if needed. She states she will go to hospital if she needs to. * Jess Marsh LPN - 04/07/2025 8:55 AM EDT Pt calls and states she had her Banana bag infusion and IV antibiotic run yesterday at infusion center. She was up all night very ill running to the bathroom and throwing up more than usual. She asksif this continues into the weekend or worsens should she stop the IV antibiotic infusions and asks if she should be tested for C-diff. She has been on a different antibiotic for over a week. I let ptknow I will send a message to PCP to ask what they would advise. Pt states she still feels not right. documented in this encounter Miscellaneous Notes * Telephone Encounter - CHARLOTTE Condon - 04/07/2025 9:48 AM EDT I ordered a C diff test for her. Ok to send the order where ever pt would like to have it done. Vomiting possibly due to the infusions. Continue ondansetron as needed. If does not calm over the weekend she will need to go back to the hospital. I don't recommend stopping the antibiotic before completing treatment if possible. documented in this encounter Plan of Treatment Upcoming Encounters Date Type Department Care Team (Late st Contact Info) Description 04/20/2025 3:00 PM EDT Office Visit [facility] [address] [facility] 120 [place] [address] Sonny Rodriguez DPM [address] [address] 05/04/2025 2:50 PM EDT Office Visit [facility] [address] [facility] 120 [place] [address] Sonny Rodriguez DPM [address] [address] Scheduled Orders Name Type Priority Associated Diagnoses Orde r Schedule Clostridium difficile toxin Microbiology Routine Watery stools Expected: 04/07/2025 (Approximate), Expires: 04/07/2026 documented as of this encounter Visit Diagnoses Diagnosis Watery stools- Primary Abnormal feces documented in this encounter Additional Health Concerns Assessment Noted Time PHQ-9 Depression Total Score: 18 024 9:42 AM EDT documented as of this encounter Care Teams Pool Attendant Relationship Specialty Start Date End Date Shlomo Hu MD [address] [facility] 110 [place] [address] PCP - General Internal Medicine 02/15/23 Jess Marsh LPN [address] [facility] 110 [place] [address] 12/06/24 Esthela Tesfaye, STAMP COLLECTOR [address] [place], [place] [phone] Bindery Supervisor Family Medicine 02/03/25 documented as of this encounter
--- OUTSIDE RECORDS SUMMARY | 2025-04-09 11:49 | XMS_ITS | Encounter Summary ---
Author Organization [facility] Address [address] [facility] [place] [place] [address] Care Team Providers Care Veneer Lathe Operator Name Role Phone Shlomo Hu MD Primary Care Provider [phone] Jess Marsh LPN Unavailable Esthela Tesfaye ESTHETICIAN Unavailable [phone] Encounter Details Date Type Department Care Team (Late st Contact Info) Description 03/31/2025 Abstract [facility] [place] [facility] [address] [facility] 110 [place] [address] Shlomo Hu MD [address] [facility] 110 [place] [address] Social History Tobacco Use Types Packs/Day Years [...] How often do you attend chur or church services? 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 120 [place] [address] Sonny Rodriguez, DPM 3[address] [facility] 5 [place] [address] 05/04/2025 2:50 PM EDT Office Visit [facility] [address] [facility] 120 [place] [address] Sonny Rodriguez DPM [address] [address] documented as of this encounter Visit Diagnoses Not on filedocumented in this encounter Additional Health Concerns Assessment Noted Time PHQ-9 Depression Total Score: 18 024 9:42 AM EDT documented as of this encounter Care Teams Veneer Lathe Operator Relationship Specialty Start Date End Date Shlomo Hu MD [address] [facility] 110 [place] [address] PCP - General Internal Medicine 02/15/23 Jess Marsh LPN [address] [facility] 110 [place] [address] 12/06/24 Esthela Tesfaye, KIRA [address] [place] [address] Auto Slip Cover Installer Family Medicine 02/03/25 documented as of this encounter
--- OUTSIDE RECORDS SUMMARY | 2025-04-09 11:49 | XMS_ITS | Encounter Summary ---
Author Organization [facility] Address [address] [facility] [place] [address] Care Team Providers Care Oral Surgery Technician Name Role Phone Shlomo Hu MD Primary Care Provider [phone] Jess Marsh LPN Unavailable Esthela Tesfaye ENTERPRISE CLOUD ARCHITECT Unavailable [phone] Encounter Details Date Type Department Care Team (Late st Contact Info) Description 01/31/2025 Abstract [facility] [address] [facility] 110 [place] [address] Shlomo Hu MD 112 [place] [facility] 110 [place] [address] Social History Tobacco Use Types Packs/Day Years [...] do you attend chur or yazidism services? 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 Not on file Not on file documented as of this encounter Plan of Treatment Upcoming Encounters Date Type Department Care Team (Late st Contact Info) Description 04/20/2025 3:00 PM EDT Office Visit [facility] [address] [facility] 120 [place] [address] Sonny Rodriguez, DPM 3006 [facility] 5 [place] [address] 05/04/2025 2:50 PM EDT Office Visit [facility] [address] [facility] 120 [place] [address] Sonny Rodriguez DPM [address] [address] documented as of this encounter Visit Diagnoses Not on filedocumented in this encounter Additional Health Concerns Assessment Noted Time PHQ-9 Depression Total Score: 18 024 9:42 AM EDT documented as of this encounter Care Teams Oral Surgery Technician Relationship Specialty Start Date End Date Shlomo Hu MD [address] [facility] 110 [place] [address] PCP - General Internal Medicine 02/15/23 Jess Marsh LPN [address] [facility] 110 [place] [address] 12/06/24 Esthela Tesfaye, KIRA [address] [place] [address] Poultry Packer Family Medicine 02/03/25 documented as of this encounter
--- OUTSIDE RECORDS SUMMARY | 2025-04-09 11:49 | XMS_ITS | Encounter Summary ---
Author Organization [facility] Address [address] [place] [address] Care Team Providers Care Tumbler Machine Operator Name Role Phone Jacob Sharp Unavailable Rasheeda Newton RD Unavailable [phone] Unavailable [phone] Fritz HENDERSON MD, Shlomo Momin Primary Care Provider [phone] Yuan Miller MD, PhD Unavailable [phone] Source Comments In the event this information is protected by the Federal Confidentiality of Alcohol and Drug AbusePatient Records regulations: The Federal rules restrict any use of the information to criminally investigate or prosecute any alcohol or drug abuse patient.[facility] Encounter Details Date Type Department Care Team (Late st Contact Info) Description 11/28/2024 Get Medical Advice PAIN [place] [address] [facility] [address] [place] [address] Johann Echeverria MD [address] [place] [address] [place], [place] [id number] Meds Social History Tobacco Use Types Packs/Day Years Used Date Smoking Tobacco: Never Smokeless Tobacco: Never Alcohol Use Standard Drinks/Week Comments Not Currently 0 (1 standard drink = 0.6 oz pur e alcohol) [facility] Utilities Answer Date Recorded In the past [...] living in a alf (including now)? No 10/18/2024 Area Deprivation Index Answer Date Reagan rded National Score (1-100), lower number is lower ri sk 63 03/05/2023 State Score (1-10), lower number is lower risk 4 03/05/2023 Data from: https://www.neighborhoodatlas.[facility]/. Last address used for calculation [address] [address] 03/05/2023 Comments No [...] file Travel History Travel Start Travel End [place] 03/18/2025 03/26/2025 documented as of this encounter [...] AM EDT Patient is calling in regarding Sapheneia message she sent today and then back on 11/24/24. Please call patient to advise. documented in this encounter Plan of Treatment Upcoming Encounters Date Type Department Care Team (Latest Contact Info) Description 04/10/2025 10:00 AM EDT Hospital Encounter Admitting 9500 [place] [address] Yuan Miller MD, PhD [address] [place] [address] Nausea and vomiting, unspecified vomiting type [R11.2], H/O bariatric surgery [Z98.84], Jejunostomy tube fell out [T85.528A] 04/10/2025 10:00 AM EDT - 04/10/2025 12:00 PM EDT Surgery Admitting 9500 [place] [address] Yuan Millre MD, PhD [address] [place] [address] LAPAROSCOPIC JEJUNOSTOMY 04/19/2025 11:00 AM EDT [facility] Nondenominational [address] [place] [id number] Joann Loera APRN.RAILROAD CAR REPAIRMAN [address] [place] [address] [id number] Cognitive movement issues 04/21/2025 8:30 AM EDT [facility] Nutrition Therapy [address] [place] [address] [phone] Tiffany Banks, RD [address] [place] [id number] f/u TF forula tolerance and hydration 05/18/2025 9:00 AM EDT [facility] General Surgery [address] [id number] Michael Mora PA-C 9500 [place] [address] f/u with michael mora in 2 wks 05/29/2025 9:00 AM EDT [facility] Gastroenterology [address] [place] [address] [id number] Johanna Martinez MD [facility] [address] [place] [address] [id number] 3 month follow up 06/28/2025 10:00 AM EDT [facility] Neurology Pain [address] [place] [id number] [place] [address] [place] [id number] Follow up for pain Scheduled Procedures Name Priority Associated Diagnoses Date/Ti me LAPAROSCOPIC JEJUNOSTOMY Nausea and vomiting, unspecified vomiting type H/O bariatric surgery Jejunostomy tube fell out 04/10/2025 10:00 AM EDT documented as of this encounter Visit Diagnoses Not on filedocumented in this encounter Care Teams Tumbler Machine Operator Relationship Specialty Start Date End Date Shlomo Hu II, MD [address] [address] PCP - General Internal Medicine 10/06/23 Jacob Sharp [address] [place] [address] Referring 04/30/[address] [place] [address] Registered Dietitian Nutrition 06/24/[address] [place], [place] [phone] Registered Dietitian Nutrition 08/27/23 Yuan Miller MD, PhD [facility]2 [place] [address] Surgeon General Surgery 02/03/24 documented as of this encounter
--- OUTSIDE RECORDS SUMMARY | 2025-04-09 11:49 | XMS_ITS | Encounter Summary ---
Author Organization [facility] Address [address] [place] [address] Phone Care Team Providers Care Freight Rate Analyst Name Role Phone Yg James MD Primary Care Provider [phone] Shlomo Hu MD Primary Care Provider Encounter Details Date Type Department Care Team (Late st Contact Info) Description 08/27/2021 Orders Only [facility] [address] [place] [address] Conversion, Onbase Social History Tobacco Use Types [...] documented as of this encounter Care Teams Freight Rate Analyst Relationship Specialty Start Date End Date Yg James MD PCP - General 09/14/17 12/20/24 Shlomo Hu MD [address] [address] PCP - General Internal Medicine 12/21/24 documented as of this encounter
--- OUTSIDE RECORDS SUMMARY | 2025-04-09 11:49 | XMS_ITS | Encounter Summary ---
Author Organization [facility] Address [address] [facility] [place] [address] Care Team Providers Care Edgerman Name Role Phone Shlomo uH MD Primary Care Provider [phone] Jess Marsh LPN Unavailable Esthela Tesfaye MARSH BUGGY OPERATOR Unavailable [phone] Encounter Details Date Type Department Care Team (Late st Contact Info) Description 12/22/2024 Abstract [facility] [address] [facility] 110 [place] [address] Shlomo Hu MD [address] [facility] 110 [place] [address] Social History Tobacco Use Types Packs/Day Years [...] How often do you attend chur or lutheran services? Never 04/18/2024 Do you [...] Recorded Patient Health Questionnaire-2 Score 0 12/01/2024 [facility] Occupat ional Health [...] Visit [facility] [address] [facility] 120 [place] [address] Sonny Rodriguez, DPM 3006 [facility] 5 [place] [address] 05/04/2025 2:50 PM EDT Office Visit [facility] [address] [facility] 120 [place] [address] Sonny Rodriguez DPM [address] [address] documented as of this encounter Visit Diagnoses Not on filedocumented in this encounter Additional Health Concerns Assessment Noted Time PHQ-9 Depression Total Score: 18 024 9:42 AM EDT documented as of this encounter Care Teams Edgerman Relationship Specialty Start Date End Date Shlomo Hu MD [address] [facility] 110 [place] [address] PCP - General Internal Medicine 02/15/23 Jess Marsh LPN [address] [facility] 110 [place] [address] 12/06/24 Esthela Tesfaye, KIRA [address] [place] [address] Development Vice President Family Medicine 02/03/25 documented as of this encounter
--- OUTSIDE RECORDS SUMMARY | 2025-04-09 11:49 | XMS_ITS | Encounter Summary ---
Author Organization [facility] Address [address] [place] [address] Care Team Providers Care Front Office Supervisor Name Role Phone Shlomo Hu MD Primary Care Provider [phone] Jess Marsh LPN Unavailable Esthela Tesfaye FICTION AND NONFICTION AUTHOR Unavailable [phone] Encounter Details Date Type Department Care Team (Late st Contact Info) Description 04/06/2025 Abstract [facility] [address] [place] [address] Jess Marsh LPN [address] [facility] [address] [place] [address] Social History Tobacco Use Types Packs/Day Years [...] How often do you attend chur or christianity services? 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 on [...] Visit [facility] [address] [facility] 120 [place] [address] Sonny Rodriguez DPM [address] [address] 05/04/2025 2:50 PM EDT Office Visit [facility] [address] [facility] 120 [place] [address] Sonny Rodrigeuz DPM [address] [address] documented as of this encounter Visit Diagnoses Not on filedocumented in this encounter Additional Health Concerns Assessment Noted Time PHQ-9 Depression Total Score: 18 024 9:42 AM EDT documented as of this encounter Care Teams Front Office Supervisor Relationship Specialty Start Date End Date Shlomo Hu MD [address] [facility] [address] [place] [address] PCP - General Internal Medicine 02/15/23 Jess Marsh LPN [address] [facility] 110 [place] [address] 12/06/24 Esthela Tesfaye, KIRA [address] [place] [address] Party Host Family Medicine 02/03/25 documented as of this encounter
--- OUTSIDE RECORDS SUMMARY | 2025-04-09 11:49 | XMS_ITS | Encounter Summary ---
Author Organization [facility] Address [address] [facility] [place] [address] Care Team Providers Care Ui Designer Name Role Phone Shlomo Hu MD Primary Care Provider [phone] Jess Marsh LPN Unavailable Esthela Tesfaye TOOL CHASER Unavailable Encounter Details Date Type Department Care Team (Late st Contact Info) Description 12/15/2024 Abstract [facility] [address] [facility] 110 [place] [address] Shlomo Hu MD [address] [facility] [facility] 110 [place] [address] Social History Tobacco Use Types Packs/Day Years [...] do you attend chur or zoroastrian services? 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 Not on file Not on file documented as of this encounter Plan of Treatment Upcoming Encounters Date Type Department Care Team (Late st Contact Info) Description 04/20/2025 3:00 PM EDT Office Visit [facility] [address] [facility] 120 [place] [address] Sonny Rodriguez, DPM 3006 [facility] 5 [place] [address] 05/04/2025 2:50 PM EDT Office Visit [facility] [address] [facility] 120 [place] [address] Sonny Rodriguez DPM [address] [address] documented as of this encounter Visit Diagnoses Not on filedocumented in this encounter Additional Health Concerns Assessment Noted Time PHQ-9 Depression Total Score: 18 024 9:42 AM EDT documented as of this encounter Care Teams Ui Designer Relationship Specialty Start Date End Date Shlomo Hu MD [address] [facility] 110 [place] [address] PCP - General Internal Medicine 02/15/23 Jess Marsh LPN [address] [facility] 110 [place] [address] 12/06/24 Esthela Tesfaye, KIRA [address] [place] [address] Furnace Process Supervisor Family Medicine 02/03/25 documented as of this encounter
--- OUTSIDE RECORDS SUMMARY | 2025-04-09 11:49 | XMS_ITS | Encounter Summary ---
Author Organization [facility] Address [address] [place] [address] Care Team Providers Care Oral Health Therapist Name Role Phone Joseph Sean Mona GALVEZ Primary Care Provider [phone] Jacob Sharp Unavailable Rasheeda Newton RD Unavailable [phone] Unavailable [phone] Fritz HENDERSON MD, Shlomo Momin Primary Care Provider [phone] Yuan Miller MD, PhD Unavailable [phone] Source Comments In the event this information is protected by the Federal Confidentiality of Alcohol and Drug AbusePatient Records regulations: The Federal rules restrict any use of the information to criminally investigate or prosecute any alcohol or drug abuse patient.[facility] Encounter Details Date Type Department Care Team (Late st Contact Info) Description 11/30/2020 Patient [employer] [place] [address] Provider, Ccf Cosmetic Estimate Letter Social History [...] N ot on file 08/20/2020 Data from: https://www.neighborhoodatlas.medicine.[facility]/. Last address used for calculation Not on [...] file Travel History Travel Start Travel End [place] 03/18/2025 03/26/2025 COVID-19 Exposure Response Date Recorded [...] 10:00 AM EDT Hospital Encounter Admitting [address] [place] [id number] Yuan Miller MD, PhD [address] [place] [id number] Nausea and vomiting, unspecified vomiting type [R11.2], H/O bariatric surgery [Z98.84], Jejunostomy tube fell out [T85.528A] 04/10/2025 10:00 AM EDT - 04/10/2025 12:00 PM EDT Surgery Admitting [address] [id number] Yuan Miller MD, PhD [address] [place] [id number] LAPAROSCOPIC JEJUNOSTOMY 04/19/2025 11:00 AM EDT [facility] Neurological Anglican [address] [place] [phone] Joann Loera APRN.BASKET FILLER 9500 [place] [address] Cognitive movement issues 04/21/2025 8:30 AM EDT [facility] Nutrition Therapy [address] [phone] Tiffany Banks, RD [address] [place] 0290995 f/u TF forula tolerance and hydration 05/18/2025 9:00 AM EDT [facility] General Surgery [address] [place] [address] [id number] Michael Mora PA-C [address] [place] 0290995 f/u with michael mora in 2 wks 05/29/2025 9:00 AM EDT [facility] Gastroenterology [address] [address] Johanna Martinez MD [facility] [address] [address] 3 month follow up 06/28/2025 10:00 AM EDT [facility] Neurology Pain [address] [place] [address] [place] [address] [place], [place] [id number] Follow up for pain Scheduled Procedures Name [...] as of this encounter Care Teams Oral Health Therapist Relationship Specialty [place] [address] [place] [address] PCP - General Family Medicine 07/09/12 10/05/23 Shlomo Hu II, MD [address] [address] PCP - General Internal Medicine 10/06/23 Jacob Sharp [address] [place] [address] Referring 04/30/[address] [place] [phone] Registered Dietitian Nutrition 06/24/[address]01 [place] [address] Registered Dietitian Nutrition 08/27/23 Yuan Miller MD, PhD 9500 [place] [address] Surgeon General Surgery 02/03/24 documented as of this encounter
--- OUTSIDE RECORDS SUMMARY | 2025-04-09 11:49 | XMS_ITS | Encounter Summary ---
Author Organization [facility] Address [address] [facility] [place] [address] Care Team Providers Care Marketing Specialist Name Role Phone Shlomo Hu MD Primary Care Provider [phone] Jess Marsh LPN Unavailable Esthela Tesfaye LOSS PREVENTION AGENT Unavailable [phone] Encounter Details Date Type Department Care Team (Late st Contact Info) Description 01/09/2025 Abstract [facility] Medince [address] [facility] 110 [place] [address] Shlomo Hu MD 112 [place] [facility] 110 [place] [address] Social History Tobacco Use Types Packs/Day Years [...] How often do you attend chur or nondenominational services? 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 Not on file Not on file documented as of this encounter Plan of Treatment Upcoming Encounters Date Type Department Care Team (Late st Contact Info) Description 04/20/2025 3:00 PM EDT Office Visit [facility] [address] [facility] 120 [place] [address] Sonny Rodriguez, DPM 3006 [facility] 5 [place] [address] 05/04/2025 2:50 PM EDT Office Visit [facility] [address] [facility] 120 [place] [address] Sonny Rodriguez DPM [address] [address] documented as of this encounter Visit Diagnoses Not on filedocumented in this encounter Additional Health Concerns Assessment Noted Time PHQ-9 Depression Total Score: 18 024 9:42 AM EDT documented as of this encounter Care Teams Marketing Specialist Relationship Specialty Start Date End Date Shlomo Hu MD [address] [facility] 110 [place] [address] PCP - General Internal Medicine 02/15/23 Jess Marsh LPN [address] [facility] 110 [place] [address] 12/06/24 Esthela Tesfaye, KIRA [address] [place] [address] Fluid Power Mechanic Family Medicine 02/03/25 documented as of this encounter
--- OUTSIDE RECORDS SUMMARY | 2025-04-09 11:49 | XMS_ITS | Encounter Summary ---
Author Organization [facility] Address [address] [facility] [place] [address] Care Team Providers Care Loop Drier Operator Name Role Phone Shlomo uH MD Primary Care Provider [phone] Jess Marsh LPN Unavailable Esthela Tesfaye MATERIAL CONTROL SUPERVISOR Unavailable [phone] Encounter Details Date Type Department Care Team (Late st Contact Info) Description 04/03/2025 Abstract [facility] [address] [facility] 110 [place] [address] Shlomo Hu MD 112 [place] [facility] 110 [place] [address] Social History Tobacco Use Types Packs/Day Years [...] How often do you attend chur or sabianism services? Never 04/18/2024 Do you belong to any clubs o r organizations such as episcopalian groups, unions, fraternal or athletic groups, or [...] Recorded Patient Health Questionnaire-2 Score 2 04/06/2025 [facility] Occupat ionid Health - Occupational Stress Questionnaire Answer Date [...] living in a residential (including now)? 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 Not on file [...] [address] [facility] 120 [place] [address] Sonny Rodriguez DPLudmila [address] [address] 05/04/2025 2:50 PM EDT Office Visit [facility] [address] [facility] 120 [place] [address] Sonny Rodriguez DPM [address] [address] documented as of this encounter Visit Diagnoses Not on filedocumented in this encounter Additional Health Concerns Assessment Noted Time PHQ-9 Depression Total Score: 18 024 9:42 AM EDT documented as of this encounter Care Teams Loop Drier Operator Relationship Specialty Start Date End Date Shlomo Hu MD [address] [facility] [address] [place] [address] PCP - General Internal Medicine 02/15/23 Jess Marsh LPN [address] [facility] [address] [place] [address] 12/06/24 Esthela Tesfaye, KIRA [address] [place] [address] Coffee Grower Family Medicine 02/03/25 documented as of this encounter
--- OUTSIDE RECORDS SUMMARY | 2025-04-09 11:49 | XMS_ITS | Encounter Summary ---
Author Organization [facility] Address [address] [place] [address] Care Team Providers Care Front Desk Clerk Name Role Phone Shlomo Hu MD Primary Care Provider [phone] Jess Marsh LPN Unavailable Esthela Tesfaye NURSING ASSISTANTS TEACHER Unavailable [phone] Encounter Details Date Type Department Care Team (Latest Contact Info) Description 04/04/2025 Travel Social History Tobacco Use Types Packs/Day [...] often do you attend chur ch or buddhist services? 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 Not on file Not on file documented as of this encounter Plan of Treatment Upcoming Encounters Date Type Department Care Team ([facility] st Contact Info) Description 04/20/2025 3:00 PM EDT Office Visit [facility] 112 [facility] 120 [place] [address] Sonny Rodriguez DPM 4480 [facility] 5 [place] [address] 05/04/2025 2:50 PM EDT Office Visit [facility] 112 [facility] 120 [place] [address] Sonny Rodriguez, DPM 3006 [facility] 5 [place] [address] documented as of this encounter Visit Diagnoses Not on filedocumented in this encounter Additional Health Concerns Assessment Noted Time PHQ-9 Depression Total Score: 18 024 9:42 AM EDT documented as of this encounter Care Teams Front Desk Clerk Relationship Specialty Start Date End Date Shlomo Hu MD 112 [facility] 110 [place] [address] PCP - General Internal Medicine 02/15/23 Jess Marsh LPN 112 [facility] 110 [place] [address] 12/06/24 Esthela Tesfaye, KIRA [address] [place] [address] Cq Developer Family Medicine 02/03/25 documented as of this encounter
--- OUTSIDE RECORDS SUMMARY | 2025-04-09 11:49 | XMS_ITS | Encounter Summary ---
Author Organization [facility] Address [address] [place] [address] Care Team Providers Care Inventory Specialist Name Role Phone Shlomo Hu MD Primary Care Provider [phone] Jess Marsh LPN Unavailable Esthela Tesfaye NURSING STAFF DEVELOPMENT COORDINATOR Unavailable [phone] Reason for Visit * Reason Onset Date Comments Casting For Braces Or Orthotics 01/05/2025 Encounter Details Date Type Department Care Team ([facility] Contact Info) Description 01/05/2025 Telephone [facility] 112 [facility] 120 [place] [id number] Sonny Rodriguez, EFREN 3006 [facility] 5 [place] [address] Casting For Braces Or Orthotics [...] How often do you attend chur or taoist services? 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 Covered at 80$. Ded $500 and met in full. $2460.60 of the $3000 oop met. REF#: [id number]. * Telephone Encounter - Sonny Rodriguez DPM - 01/05/2025 10:49 AM EDT Please precertify for custom orthotics for the diagnosis of please call to discuss if covered or not covered for HAV deformities bilaterally documented in this encounter Plan of Treatment Upcoming Encounters Date Type Department Care Team ([facility] st Contact Info) Description 04/20/2025 3:00 PM EDT Office Visit [facility] [address] [email or web address] [address] [place] [address] Sonny Rodriguez DPM 3006 [facility] 5 [place] [address] 05/04/2025 2:50 PM EDT Office Visit [facility] [address] [facility] [[email or web address] [address] [place] [address] Sonny Rodriguez DPM 3[address] [facility] 5 [place] [address] documented as of this encounter Visit Diagnoses Not on filedocumented in this encounter Additional Health Concerns Assessment Noted Time PHQ-9 Depression Total Score: 18 024 9:42 AM EDT documented as of this encounter Care Teams Inventory Specialist Relationship Specialty Start Date End Date Shlomo Hu MD 112 [facility] 110 [place] [address] PCP - General Internal Medicine 02/15/23 Jess Marsh LPN 112 [facility] 110 [place] [address] 12/06/24 Esthela Tesfaye, KIRA [address] [place] [address] Development Spec Family Medicine 02/03/25 documented as of this encounter
--- OUTSIDE RECORDS SUMMARY | 2025-04-09 11:49 | XMS_ITS | Encounter Summary ---
Author Organization [facility] Address [address] [facility] [place] [address] Care Team Providers Care It Solutions Sales Consultant Name Role Phone Shlomo Hu MD Primary Care Provider [phone] Jess Marsh LPN Unavailable Esthela Tesfaye REMOTE PILOT OPERATOR Unavailable [phone] Encounter Details Date Type Department Care Team (Late st Contact Info) Description 04/06/2025 Telephone [facility] [address] [place] [address] [place] [address] Angelina Polk, TABLE KEEPER [address] [facility] 110 [place] [address] Social History Tobacco Use Types Packs/Day Years [...] Recorded Patient Health Questionnaire-2 Score 2 04/06/2025 [facility] of Occupat ional Health - [...] 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 We see received some orders to start Melina Mcclain today working on a page 1. It does not say how many days we are doing this. I mean, I know that you order is good for a year, but I need to have it written on the order. How many days You would like to have or do not do this? She said it was 5 days. Does not say that on the order if you could revise the order and fix it back to the [facility] scheduling department [phone]. Any questions about that? You can just give us a call Also back to the [facility] scheduling department. Thank you. documented in this encounter Plan of Treatment Upcoming Encounters Date Type Department Care Team (Late st Contact Info) Description 04/20/2025 3:00 PM EDT Office Visit [facility] [address] [facility] [address] [place] [address] Sonny Rodriguez DPM 9646 [facility] 5 [place] [address] 05/04/2025 2:50 PM EDT Office Visit [facility] [address] [facility] [address] [place] [address] Sonny Rodriguez, EFREN 3006 [facility] 5 [place] [address] documented as of this encounter Visit Diagnoses Not on filedocumented in this encounter Additional Health Concerns Assessment Noted Time PHQ-9 Depression Total Score: 18 024 9:42 AM EDT documented as of this encounter Care Teams It Solutions Sales Consultant Relationship Specialty Start Date End Date Shlomo Hu MD 112 [facility] 110 [place] [address] PCP - General Internal Medicine 02/15/23 Jess Marsh LPN 112 [facility] 110 [place] [address] 12/06/24 Esthela Tesfaye, KIRA [address] [place] [address] Software Client Architect Family Medicine 02/03/25 documented as of this encounter
--- OUTSIDE RECORDS SUMMARY | 2025-04-09 11:49 | XMS_ITS | Clinical Summary ---
Author Organization [facility] Address [address] [place] [address] Phone Care Team Providers Care Cloth Burler Name Role Phone Shlomo Hu MD Primary Care Provider [phone] Allergies Active Allergy Reactions Criticality Noted Date [...] mcg) by mouth once daily. Active pancrelipase, Cto-Nkag-Swzy, (Viokace) 20,880-78,300- 78,300 unit tablet Take 3 [...] age to complete this topic HPV Vaccines Aged Out No longer eligi ble based on patient's age to complete this topic Hepatitis A Vaccines Aged Out No long [...] this topic Medical Devices Implanted Type Area Supervisor Parking Lot Device Identifier Shelf Expiration Date Model / Serial / Lot Endo, Alice 60 Med/Thck Artic Reload Case [id number] Implanted:Qty: 1 on 12/23/2021 by Brittnay Multani MD Stapkristina Abdomen [employer] [id number] / / Description:Converted from [facility]. Please see archived information for full log information. Endo, Clip, 5mm, M/L Case [id number] Implanted:Qty: 1 on 12/23/2021 by Brittany Multani MD Stapkristina Abdomen [facility] [id number] / / Description:Converted from [facility]. Please see archived information for full log information. Procedures Procedure Name Priority Date/Time Associated Diagnosis Comments BASIC METABOLIC PANEL STAT 04/28/2023 11:31 AM EDT EGD Routine 04/24/2022 1:01 PM EDT CONVERTED SHEET FOLDER CYTOLOGY Routine 06/17/2006 12:00 AM EDT from Last 3 Months or Most Recently Relevant to Health Maintenance Results * Basic Metabolic Panel (04/28/2023 11:31 AM EDT) Glucose 86 74 - 99 mg/dL [facility] Sodium 140 136 - 145 mmol/L [facility] Potassium 4.2 3.5 - 5.3 mmol/L [facility] Chloride 106 98 - 107 mmol/L [facility] Bicarbonate 27 21 - 32 mmol/L [facility] Anion Gap 11 10 - 20 mmol/L [facility] Urea Nitrogen 10 6 - 23 mg/dL [facility] Creatinine 0.57 0.50 - 1.05 mg/dL [facility] GFR Female >90 >90 mL/min/1.7 3m2 [facility] Comment: CALCULATIONS OF ESTIMATED GFR ARE PERFORMED USING THE 2020 CKD-EPI STUDY REFIT EQUATION WITHOUT THE RACE VARIABLE FOR THE IDMS-TRACEABLE CREATININE METHODS. https://jasn.asnjournals.org/content//ASN.2947217523 Calcium 9.1 8.6 - 10.3 mg/dL [facility] 04/28/2023 11:3 1 AM EDT 04/28/2023 11:35 AM EDT us Mike Lawler DO LAB BLOOD ORDERABLES Kristi l Result [facility] [address] [place] [address] * Esophagogastroduodenoscopy (EGD) (04/24/2022 1:01 PM EDT) Anatomical Region Laterality Modality Endoscopy 04/24/2022 1:01 PM EDT Narrative 10/14/2022 8:02 AM EST Patient Name: Melina Taveras Procedure Date: 04/24/2022 1:01 PM Date of : 1975 Admit Type: Emergency Department Site: [facility] Endoscopy Room 1 Ethnicity: Not or Race: White Attending MD: Brittany Multani MD, [id number] Procedure: Upper GI endoscopy Indications: Epigastric abdominal pain, Post-bariatric anastomotic stenosis, Follow-up of post-bariatric anastomotic stenosis, For therapy of post-bariatric anastomotic stenosis, Nausea with vomiting, Status post Dylon-en-Y Providers: Brittany Multani MD (Doctor), Aura King RN (Nurse) , Helena Parrish, Furnace Puncher Referring: Yg James MD Medicines: Monitored Anesthesia [...] stenosis and ulceration. This was traversed. The gzxdr-cw-drywvvf limb was characterized by healthy appearing mucosa. [...] ongoing care. Procedure Code(s): --- Professional --- 90739, Esophagogastroduodenoscopy, flexible, transoral; with dilation of gastric/duodenal stricture(s) (eg, balloon, bougie) Diagnosis Code(s): --- Professional --- Z98.0, Intestinal bypass and anastomosis status R10.13, Epigastric pain K95.89, Other complications of other bariatric procedure R11.2, Nausea with vomiting, unspecified CPT copyright 2021 [employer]. All rights reserved. The codes documented in this report are preliminary and upon marketing designer review may be revised to meet current [...] Race: White Attending MD: Brittany Multani MD, [id number] Procedure: Upper GI endoscopy Indications: Epigastric abdominal pain, Post-bariatricanastomotic stenosis, Follow-up of post-bariatric anastomotic stenosis, For therapy of post-bariatric anastomotic stenosis, Nausea with vomiting, Status wcmrLrwr-pm-T Providers: Brittany Multani MD (Doctor), Aura King RN (Nurse) , Helena Parrish, Furnace Puncher Referring: Yg James MD Medicines: Monitored Anesthesia [...] mild stenosis and ulceration. This was traversed. Seftnfwz-lc-yjpjogi limb was characterized by healthy appearing mucosa. [...] for ongoingcare. Procedure Code(s): --- Professional --- 60721, Esophagogastroduodenoscopy, flexible, transoral; with dilation of gastric/duodenal stricture(s) (eg, balloon, bougie) Diagnosis Code(s): --- Professional --- Z98.0, Intestinal bypass and anastomosis status R10.13, Epigastric pain K95.89, Other complications of other bariatric procedure R11.2, Nausea with vomiting, unspecified CPT copyright 2021 [employer]. All rights reserved. The codes documented in this report are preliminary and upon marketing designer reviewmay be revised to meet current compliance [...] ORDERABLES Edited Result - Final * CONVERTED SHEET FOLDER CYTOLOGY (06/17/2006 12:00 AM EDT) Pathology Report Date of Procedure: 06/17/2006 Pathologist: [facility], Cytology Date Reported: 07/06/2006 Date Received: 06/17/2006 [...] This specimen has been analyzed by the MindShare NetworksPrep Imaging System (Anavex.), an automated imaging and review system, which assists the laboratory in evaluating cells on ThinPrep Pap tests. Following automated imaging, selected [place] from every slide were reviewed by a captain waiter/waitress and/or pathologist. Electronically Signed Out By [facility], Cytology//MJC/PWM By the signature on this report, [...] of Specimen A: THINPREP PAP ECTOCERVICAL/ENDOCE RVICAL [facility] Department of Pathology [address] [id number] [facility] CONVERTED FINAL DIAGNOSIS A. THINPREP PAP ECTOCERVICAL/ENDOCE RVICAL: Specimen Adequacy: SATISFACTORY FOR EVALUATION. Quality Indicator: Absence of endocervical/transf ormation zone elements. General Categorization: NEGATIVE FOR INTRAEPITHELIAL LESION OR MALIGNANCY. Ancillary Testing: Specimen does not meet the requisition-stated criteria for HPV testing. See Pap test interpretation above. [facility] CONVERT[facility] COMMENT This specimen has been analyzed by the MindShare NetworksPrep Imaging System (Anavex.), an automated imaging and review system, which assists the laboratory in evaluating cells on ThinPrep Pap tests. Following automated imaging, selected [place] from every slide were reviewed by a captain waiter/waitress and/or pathologist. [facility] CONVERTED FINAL REPORT PDF LINK TO COPY AND PASTE \\copathshare\copat h\PDF [id number].pdf [facility] TPP ECTO/ENDO 06/17/2006 06/17/2006 2:06 PM EDT us Kranthi Arnold MD LAB CYTOLOGY ORDERAB LES Final Result [facility] [id number] [id number] from Last 3 Months or Most Recently Relevant to Health Maintenance Insurance [facility] Care Teams Cloth Burler Relationship Specialty Start Date End Date Shlomo Hu MD 112 [facility] [place] [facility] 110 [place] [address] PCP - General Internal Medicine 12/21/24
--- OUTSIDE RECORDS SUMMARY | 2025-04-09 11:50 | XMS_ITS | Encounter Summary ---
Author Organization [facility] Address [address] [facility] [place] [address] Care Team Providers Care Hvac Field Service Technician Name Role Phone Shlomo Hu MD Primary Care Provider [phone] Claribel Scott RN Unavailable [phone] eJss Marsh RELATIONS SPECIALIST Unavailable Esthela Tesfaye OVERCOIL STEPPER Unavailable [phone] Encounter Details Date Type Department Care Team (Late st Contact Info) Description 11/24/2024 Abstract [facility] [place] [facility] [address] [facility] 110 [place] [address] Shlomo Hu MD 112 [facility] 110 [place] [address] Social History Tobacco Use Types Packs/Day Years [...] do you attend chur or christian services? 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 Not on file Not on file documented as of this encounter Plan of Treatment Upcoming Encounters Date Type Department Care Team (Late st Contact Info) Description 04/20/2025 3:00 PM EDT Office Visit [facility] [address] [place] [address] [place] [address] Sonny Rodriguez, DPM 3006 [facility] 5 [place] [address] 05/04/2025 2:50 PM EDT Office Visit [facility] [address] [place] [address] [place] [address] Sonny Rodriguez, DPM [address] [address] documented as of this encounter Visit Diagnoses Not on filedocumented in this encounter Additional Health Concerns Assessment Noted Time PHQ-9 Depression Total Score: 18 024 9:42 AM EDT documented as of this encounter Care Teams Hvac Field Service Technician Relationship Specialty Start Date End Date Shlomo Hu MD [address] [facility] 110 [place] [address] PCP - General Internal Medicine 02/15/23 Claribel Scott, RN [address] [place] [address] Licensed Practical Nurse Family Medicine 10/21/24 12/06/24 Jess Marsh LPN [address] [facility] 110 [place] [address] 12/06/24 Esthlea Tesfaye LSW [address] [place] [address] Coin Wrapping Machine Operator Family Medicine 02/03/25 documented as of this encounter
--- OUTSIDE RECORDS SUMMARY | 2025-04-09 11:50 | XMS_ITS | Encounter Summary ---
Author Organization [facility] Address [address] [place] [address] Care Team Providers Care Radio Aerial Installer Name Role Phone Jacob Sharp Unavailable Rasheeda Newton RD Unavailable [phone] Unavailable [phone] Fritz HENDERSON MD, Shlomo Momin Primary Care Provider [phone] Yuan Miller MD, PhD Unavailable [phone] Source Comments In the event this information is protected by the Federal Confidentiality of Alcohol and Drug AbusePatient Records regulations: The Federal rules restrict any use of the information to criminally investigate or prosecute any alcohol or drug abuse patient.[facility] Encounter Details Date Type Department Care Team (Late st Contact Info) Description 12/02/2024 Patient Msg Gastroenterology [address] [id number] Provider, Ccdenice Tube change Social History Tobacco Use Types Packs/Day Years Used Date Smoking Tobacco: Never Smokeless Tobacco: Never Alcohol Use Standard Drinks/Week Comments Not Currently 0 (1 standard drink = 0.6 oz pur e alcohol) [facility] Utilities Answer Date Recorded In the past 12 months has th e electric, gas, oil, or water Evalve threatened to shut off services in your [...] in the past 12 m [facility], were you homeless or living in a jail (including now)? No 10/18/2024 Area Deprivation Index Answer Date Reagan rded National Score (1-100), lower number is lower ri sk 63 03/05/2023 State Score (1-10), lower number is lower risk 4 03/05/2023 Data from: https://www.neighborhoodatlas.medicine.[facility]/. Last address used for calculation [...] Travel Start Travel End [place] 03/18/2025 03/26/2025 documented as of this encounter [...] 10:00 AM EDT Hospital Encounter Admitting [address] [place] [address] Yuan Miller MD, PhD [address] [place] [address] Nausea and vomiting, unspecified vomiting type [R11.2], H/O bariatric surgery [Z98.84], Jejunostomy tube fell out [T85.528A] 04/10/2025 10:00 AM EDT - 04/10/2025 12:00 PM EDT Surgery Admitting [address] [place] [address] Yuan Miller MD, PhD [address] [id number] LAPAROSCOPIC JEJUNOSTOMY 04/19/2025 11:00 AM EDT [facility] Neurological Sikhism [address] [place] [address] Joann Loera APRN.BENDER HAND [address] [id number] Cognitive movement issues 04/21/2025 8:30 AM EDT [facility] Nutrition Therapy [address] [address] [address], [address] [place] [address] f/u TF forula tolerance and hydration 05/18/2025 9:00 AM EDT [facility] General Surgery [address] [place] [address] Michael Mora PA-C [address] [place] [address] f/u with michael mora in 2 wks 05/29/2025 9:00 AM EDT [facility] Gastroenterology [address] [address] Johanna Martinez MD [facility] [address] [place] [address] 3 month follow up 06/28/2025 10:00 AM EDT [facility] Neurology Pain [address] [place] [address] [place] [address] [place], [place] [phone] Follow up for pain Scheduled Procedures Name Priority Associated Diagnoses Date/Ti me LAPAROSCOPIC JEJUNOSTOMY Nausea and vomiting, unspecified vomiting type H/O bariatric surgery Jejunostomy tube fell out 04/10/2025 10:00 AM EDT documented as of this encounter Visit Diagnoses Not on filedocumented in this encounter Care Teams Radio Aerial Installer Relationship Specialty Start Date End Date Shlomo Hu II, MD 112 [facility] 110 [place] [address] PCP - General Internal Medicine 10/06/23 Jacob Sharp [id number] [phone] Referring 04/30/[address] [phone] Registered Dietitian Nutrition 06/24/[address] [place] [address] Registered Dietitian Nutrition 08/27/23 Yuan Miller MD, PhD [address] [place] [address] Surgeon General Surgery 02/03/24 documented as of this encounter
--- OUTSIDE RECORDS SUMMARY | 2025-04-09 11:50 | XMS_ITS | Encounter Summary ---
Author Organization [facility] Address [address] [place] [address] Care Team Providers Care Warehouse Guard Name Role Phone Jacob Sharp Unavailable Rasheeda Newton RD Unavailable [phone] Unavailable [phone] Fritz HENDERSON MD, Shlomo Momin Primary Care Provider [phone] Yuan Miller MD, PhD Unavailable [phone] Source Comments In the event this information is protected by the Federal Confidentiality of Alcohol and Drug AbusePatient Records regulations: The Federal rules restrict any use of the information to criminally investigate or prosecute any alcohol or drug abuse patient.[facility] Encounter Details Date Type Department Care Team (Late st Contact Info) Description 11/30/2024 Get Medical Advice PAIN [place] [address] [facility] [place] [address] [place] [address] Johann Echeverria MD [address] [place] [address] [address] [place], [place] [id number] Medicine Social History Tobacco Use Types Packs/Day Years Used Date Smoking Tobacco: Never Smokeless Tobacco: Never Alcohol Use Standard Drinks/Week Comments Not Currently 0 (1 standard drink = 0.6 oz pur e alcohol) [facility] Utilities Answer Date Recorded In the [...] risk 4 03/05/2023 Data from: https://www.neighborhoodatlas.[facility]/. Last address used for calculation [address] [...] file Travel History Travel Start Travel End [place] 03/18/2025 03/26/2025 documented as of this encounter [...] requesting to have increase of gabapentin per Software Development Project Manager recommendations Spoke with patient name and confirmed. Regarding journvax and my chart message. Informed received approval via fax for Journavx confirmed with patient insurance and DDM patient pharmacy that medication has been approved and awaiting at pharmacy to be picked up. Patient states she is aware she received a call last night will supervisor picking crew med today. * Telephone Encounter - Daniela [...] 10:25 AM EDT Spoke with Aleah from [employer] Journavx has been approved for a 3 month supply as of today. [facility] will generate approval letter and fax to office and mail letter to patient. Per [employer] [facility] quarry manager Aleah information will be sent to [...] was any further information needed from our medical corps officer states no further documentation is needed someone will reach out to the office if that is to change. Confirmed fax number to send case details to [phone] and reference number for case remains as #[id number]. Yanci states she has marked case urgent and will fax case details to office once complete. * Telephone Encounter - Daniela Ford LPN - 12/07/2024 10:59 AM EDT Spoke with Yanci from [email or web address]. Patient's case currently being reviewed unable to give final determination date. Will fax determination once finalized. * Telephone Encounter - Dainela Ford LPN - 12/02/2024 11:16 AM EDT Spoke with rep Quan from [employer]. Prescriber to complete non formulary exception form and medical necessity if warranted fax back to [phone]. Requested documents collected. Form on provider's desk [...] 10:00 AM EDT Hospital Encounter Admitting [address] [id number] Yuan Miller MD, PhD [address] [place] [address] Nausea and vomiting, unspecified vomiting type [R11.2], H/O bariatric surgery [Z98.84], Jejunostomy tube fell out [T85.528A] 04/10/2025 10:00 AM EDT - 04/10/2025 12:00 PM EDT Surgery Admitting [address] [id number] Yuan Miller MD, PhD [address] [place] [address] LAPAROSCOPIC JEJUNOSTOMY 04/19/2025 11:00 AM EDT [facility] Neurological Tenriism [address] [id number] Joann Loera APRN.NUCLEAR MEDICINE MEDICAL DIRECTOR [address] [place] [address] Cognitive movement issues 04/21/2025 8:30 AM EDT [facility] Nutrition Therapy [address] [id number] Tiffany Banks, RD [address] [id number] f/u TF forula tolerance and hydration 05/18/2025 9:00 AM EDT [facility] General Surgery [address] [id number] Michael Mora PA-C [address] [place] [address] f/u with michael lynnetoniakassi in 2 wks 05/29/2025 9:00 AM EDT [facility] Gastroenterology [address] [place] [address] Johanna Martinez MD [facility] [address] [address] 3 month follow up 06/28/2025 10:00 AM EDT [facility] Neurology Pain [address] [place] [address] [place] [address] [place], [place] [id number] Follow up for pain Scheduled Procedures Name Priority Associated Diagnoses Date/Ti me LAPAROSCOPIC JEJUNOSTOMY Nausea and vomiting, unspecified vomiting type H/O bariatric surgery Jejunostomy tube fell out 04/10/2025 10:00 AM EDT documented as of this encounter Visit Diagnoses Not on filedocumented in this encounter Care Teams Warehouse Guard Relationship Specialty Start Date End Date Shlomo Hu II, MD [address] [place] [address] PCP - General Internal Medicine 10/06/23 Jacob Sharp [address] [address] [id number] Referring 04/30/[address] [address] Registered Dietitian Nutrition 06/24/[address] [facility] [place] [address] Registered Dietitian Nutrition 08/27/23 Yuan Miller MD, PhD [facility] [phone] Surgeon General Surgery 02/03/24 documented as of this encounter
--- OUTSIDE RECORDS SUMMARY | 2025-04-09 11:50 | XMS_ITS | Encounter Summary ---
Author Organization [facility] Address [address] [facility] [place] [address] Care Team Providers Care Leaf Blender Name Role Phone Shlomo Hu MD Primary Care Provider [phone] Jess Marsh LPN Unavailable Esthela Tesfaye CARPENTER HELPER [employer] Unavailable [phone] Encounter Details Date Type Department Care Team (Late st Contact Info) Description 03/28/2025 Results Follow-Up [facility] [address] [facility] 110 [place] [address] Yanci Aguilar PA 112 [facility] 110 [place] [address] Hypokalemia (Primary Dx) Social History Tobacco Use Types Packs/Day Years [...] Recorded Patient Health Questionnaire-2 Score 2 03/27/2025 [facility] Occupat ional Health [...] 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 Not on file Not on file documented as of this encounter Plan of Treatment Upcoming Encounters Date Type Department Care Team (Late st Contact Info) Description 04/20/2025 3:00 PM EDT Office Visit [facility] [address] [facility] 120 [place] [address] Sonny Rodriguez, DPM [address] [address] 05/04/2025 2:50 PM EDT Office Visit [facility] [address] [facility] 120 [place] [address] Sonny Rodriguez, DPM [address] [address] documented as of this encounter Visit Diagnoses Diagnosis Hypokalemia- Primary Hypopotassemia documented in this encounter Additional Health Concerns Assessment Noted Time PHQ-9 Depression Total Score: 18 024 9:42 AM EDT documented as of this encounter Care Teams Leaf Blender Relationship Specialty Start Date End Date Shlomo Hu MD [address] [facility] 110 [place] [address] PCP - General Internal Medicine 02/15/23 Jess Marsh LPN [address] [facility] 110 [place] [address] 12/06/24 Esthela Tesfaye, KIRA [address] [place] [address] Sports Statistician Family Medicine 02/03/25 documented as of this encounter
--- OUTSIDE RECORDS SUMMARY | 2025-04-09 11:50 | XMS_ITS | Encounter Summary ---
Author Organization [facility] Address [address] [facility] [place] [address] Care Team Providers Care Chain Sales Representative Name Role Phone Shlomo Hu MD Primary Care Provider [phone] Jess Marsh LPN Unavailable Esthela Tesfaye STORAGE CONSULTANT Unavailable [phone] Encounter Details Date Type Department Care Team (Late st Contact Info) Description 01/31/2025 Abstract [facility] Medince [address] [facility] 110 [place] [address] Shlomo Hu MD [address] [place] [facility] 110 [place] [address] Social History Tobacco Use Types Packs/Day Years [...] any clubs o r organizations such as yarsanism groups, unions, fraternal or athletic groups, or [...] 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 Not on file Not on file documented as of this encounter Plan of Treatment Upcoming Encounters Date Type Department Care Team (Late st Contact Info) Description 04/20/2025 3:00 PM EDT Office Visit [facility] [address] [facility] 120 [place] [address] Sonny Rodriguez, DPM 3006 [facility] 5 [place] [address] 05/04/2025 2:50 PM EDT Office Visit [facility] [address] [facility] 120 [place] [address] Sonny Rodriguez DPM [address] [address] documented as of this encounter Visit Diagnoses Not on filedocumented in this encounter Additional Health Concerns Assessment Noted Time PHQ-9 Depression Total Score: 18 024 9:42 AM EDT documented as of this encounter Care Teams Chain Sales Representative Relationship Specialty Start Date End Date Shlomo Hu MD [address] [facility] 110 [place] [address] PCP - General Internal Medicine 02/15/23 Jess Marsh LPN [address] [facility] 110 [place] [address] 12/06/24 Esthela Tesfaye, KIRA [address] [place] [address] Semiconductor Manufacturing Technician Family Medicine 02/03/25 documented as of this encounter
--- OUTSIDE RECORDS SUMMARY | 2025-04-09 11:50 | XMS_ITS | Encounter Summary ---
Author Organization [facility] Address [address] [facility] [place] [address] Care Team Providers Care Superintendent Drilling Name Role Phone Shlomo Hu MD Primary Care Provider [phone] Jess Marsh LPN Unavailable Esthela Tesfaye JEWELRY ENAMELER Unavailable [phone] Encounter Details Date Type Department Care Team (Late st Contact Info) Description 03/29/2025 Abstract [facility]ince [address] [facility] 110 [place] [address] Shlomo Hu MD [address] [facility] 110 [place] [address] Social History Tobacco Use Types Packs/Day Years [...] How often do you attend chur or mandaen services? 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 Not on file Not on file documented as of this encounter Plan of Treatment Upcoming Encounters Date Type Department Care Team (Late st Contact Info) Description 04/20/2025 3:00 PM EDT Office Visit [facility] [address] [facility] 120 [place] [address] Sonny Rodriguez, DPM 3006 [facility] 5 [place] [address] 05/04/2025 2:50 PM EDT Office Visit [facility] [address] [facility] 120 [place] [address] Sonny Rodriguez DPM [address] [address] documented as of this encounter Visit Diagnoses Not on filedocumented in this encounter Additional Health Concerns Assessment Noted Time PHQ-9 Depression Total Score: 18 024 9:42 AM EDT documented as of this encounter Care Teams Superintendent Drilling Relationship Specialty Start Date End Date Shlomo Hu MD [address] [facility] 110 [place] [address] PCP - General Internal Medicine 02/15/23 Jess Marsh LPN [address] [facility] 110 [place] [address] 12/06/24 Esthela Tesfaye, KIRA [address] [place] [address] Palliative Care Nurse Family Medicine 02/03/25 documented as of this encounter
--- OUTSIDE RECORDS SUMMARY | 2025-04-09 11:50 | XMS_ITS | Encounter Summary ---
Author Organization [facility] Address [address] [facility] [place] [address] Care Team Providers Care Religion Teacher Name Role Phone Shlomo Hu MD Primary Care Provider [phone] Jess Marsh LPN Unavailable Esthela Tesfaye WET INSPECTOR [employer]ASS Unavailable [phone] Encounter Details Date Type Department Care Team (Late st Contact Info) Description 03/30/2025 Abstract [facility] Medince [address] [facility] 110 [place] [address] Shlomo Hu MD [address] [facility] 110 [place] [address] Social History Tobacco Use Types Packs/Day Years [...] Recorded Patient Health Questionnaire-2 Score 2 03/27/2025 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 120 [place] [address] Sonny Rodriguez, DPM 3006 [facility] 5 [place] [address] 05/04/2025 2:50 PM EDT Office Visit [facility] [address] [facility] 120 [place] [address] Sonny Rodriguez DPM [address] [address] documented as of this encounter Visit Diagnoses Not on filedocumented in this encounter Additional Health Concerns Assessment Noted Time PHQ-9 Depression Total Score: 18 024 9:42 AM EDT documented as of this encounter Care Teams Religion Teacher Relationship Specialty Start Date End Date Shlomo Hu MD [address] [facility] 110 [place] [address] PCP - General Internal Medicine 02/15/23 Jess Marsh LPN [address] [facility] 110 [place] [address] 12/06/24 Esthela Tesafye, KIRA [address] [place] [address] Hydrochloric Manufacturing Supervisor Family Medicine 02/03/25 documented as of this encounter
--- OUTSIDE RECORDS SUMMARY | 2025-04-09 11:50 | XMS_ITS | Encounter Summary ---
Author Organization [facility] Address [address] [place] [address] Care Team Providers Care Staff Radiation Therapist Name Role Phone Joseph Sean Mona GALVEZ Primary Care Provider [phone] Jacob Sharp Unavailable Rasheeda Newton RD Unavailable [phone] Unavailable [phone] Fritz HENDERSON MD, Shlomo Momin Primary Care Provider [phone] Yuan Miller MD, PhD Unavailable [phone] Source Comments In the event this information is protected by the Federal Confidentiality of Alcohol and Drug AbusePatient Records regulations: The Federal rules restrict any use of the information to criminally investigate or prosecute any alcohol or drug abuse patient.[facility] Encounter Details Date Type Department Care Team (Late st Contact Info) Description 06/25/2022 Patient Msg Pre Anesthesia [address] [place] [address] [place] [id number] Provider, Valerie Pre Anesthesia Consultation Clinic Appointment Social History [...] N ot on file 08/20/2020 Data from: https://www.neighborhoodatlas.medicine.[facility] healthcare.edu/. Last address used for calculation Not on [...] file Travel History Travel Start Travel End [place] 03/18/2025 03/26/2025 COVID-19 Exposure Response Date Recorded [...] 10:00 AM EDT Hospital Encounter Admitting [address] [id number] Yuan Miller MD, PhD [address] [phone] Nausea and vomiting, unspecified vomiting type [R11.2], H/O bariatric surgery [Z98.84], Jejunostomy tube fell out [T85.528A] 04/10/2025 10:00 AM EDT - 04/10/2025 12:00 PM EDT Surgery Admitting [address] [id number] Yuan Miller MD, PhD [address] [phone] LAPAROSCOPIC JEJUNOSTOMY 04/19/2025 11:00 AM EDT [facility] Neurological Mosque [address] [phone] Joann Loera APRN.FISH CHECKER 9500 [place] [address] Cognitive movement issues 04/21/2025 8:30 AM EDT [facility] Nutrition Therapy [address] [phone] Tiffany Banks, RD [address] [id number] f/u TF forula tolerance and hydration 05/18/2025 9:00 AM EDT [facility] General Surgery [address] [id number] Michael Mora PA-C 9500 [place] [address] f/u with michael mora in 2 wks 05/29/2025 9:00 AM EDT [facility] Gastroenterology [address] [place] [address] Johanna Martinez MD [facility] [address] [address] 3 month follow up 06/28/2025 10:00 AM EDT [facility] Neurology Pain [address] [place] [address] [place] [address] [place], [place] [phone] Follow up for pain Scheduled Procedures Name [...] documented as of this encounter Care Teams Staff Radiation Therapist Relationship Specialty Start [place] [address] [place] [address] PCP - General Family Medicine 07/09/12 10/05/23 Shlomo Hu II, MD [address] [facility] 110 [place] [address] PCP - General Internal Medicine 10/06/23 Jacob Sharp [address] [place] [address] Referring 04/30/[address] [phone] Registered Dietitian Nutrition 06/24/[address]506 [place] [address] Registered Dietitian Nutrition 08/27/23 Yuan Miller MD, PhD 9500 [place] [address] Surgeon General Surgery 02/03/24 documented as of this encounter
--- OUTSIDE RECORDS SUMMARY | 2025-04-09 11:50 | XMS_ITS | Encounter Summary ---
Author Organization [facility] Address [address] [facility] [place] [address] Care Team Providers Care New Car Inspector Name Role Phone Shlomo Hu MD Primary Care Provider [phone] Jess Marsh LPN Unavailable Esthela Tesfaye FIRST OFFICER AND FLIGHT INSTRUCTOR Unavailable [phone] Encounter Details Date Type Department Care Team (Late st Contact Info) Description 03/28/2025 Abstract [facility] Medince [address] [place] 110 [place] [address] Shlomo Hu MD [address] [place] [facility] 110 [place] [address] Social History Tobacco Use Types Packs/Day Years [...] How often do you attend chur or episcopalian services? 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 5 [place] [address] 05/04/2025 2:50 PM EDT Office Visit [facility] [address] [place] [address] [place] [address] Sonny Rodriguez DPM [address] [address] documented as of this encounter Visit Diagnoses Not on filedocumented in this encounter Additional Health Concerns Assessment Noted Time PHQ-9 Depression Total Score: 18 024 9:42 AM EDT documented as of this encounter Care Teams New Car Inspector Relationship Specialty Start Date End Date Shlomo Hu MD [address] [facility] 110 [place] [address] PCP - General Internal Medicine 02/15/23 Jess Marsh LPN [address] [facility] 110 [place] [address] 12/06/24 Esthela Tesfaye, KIRA [address] [place] [address] Assessment Manager Family Medicine 02/03/25 documented as of this encounter
--- OUTSIDE RECORDS SUMMARY | 2025-04-09 11:50 | XMS_ITS | Encounter Summary ---
Author Organization [facility] Address [address] [facility] [place] [address] Care Team Providers Care Vegetable Specker Name Role Phone Shlomo Hu MD Primary Care Provider [phone] Jess Marsh LPN Unavailable Esthela Tesfaye REHEAT FURNACE OPERATOR Unavailable [phone] Encounter Details Date Type Department Care Team (Late st Contact Info) Description 04/06/2025 Telephone [facility] [place] [facility] [address] [place] [place] [address] Angelina Polk, PORTABLE MACHINE CUTTER [address] [facility] 110 [place] [address] Social History Tobacco Use Types Packs/Day Years [...] often do you attend chur ch or tenriism services? 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 Question Answer Date of Assessment Author Little interest or pleasure in doing things Several days 04/06/2025 8:03 AM TRENAT PARTHA WOLFE Feeling down, depressed, or hopeless Several days 03/15 8:03 AM PARTHA VILLATORO Patient Health Questionnaire-2 Score 2 03/15 8:03 AM EDT PARTHA WOLFE * If you checked off any problems on this questionnaire so far, Question Answer Date of Assessment Author How difficult have these problems made it for you to do your work, take care of things at home, or get along with other people? Somewhat difficult 04/06/2025 8:03 AM PARTHA VILLATORO documented as of this encounter Miscellaneous Notes * Telephone Encounter - Melba Taylor - 04/06/2025 2:16 PM EDT Hi. This is Marci Fernandez coming from the [facility]. And we have an order from Imer Polk for patient Melina Taveras for a line to be placed. And I just have a couple of questions and we are working with a bit of a timeline here to get her in and get Thisline placed either today or not until Thursday. So if someone could please give me a call back, I would appreciate it. The number is [phone]. And again, my name is Marci and this is regarding patient Melina Vega [phone]. Thanks, joy hamilton. documented in this encounter Plan of Treatment Upcoming Encounters Date Type Department Care Team (Late st Contact Info) Description 04/20/2025 3:00 PM EDT Office Visit [facility] [address] [place] [place] [phone] Sonny Rodriguez DPM 3006 [facility] 5 [place] [address] 05/04/2025 2:50 PM EDT Office Visit [facility] [address] [place] [address] [place] [address] Sonny Rodriguez, DPLudmila 3006 [facility] 5 [place] [address] documented as of this encounter Visit Diagnoses Not on filedocumented in this encounter Additional Health Concerns Assessment Noted Time PHQ-9 Depression Total Score: 18 05/10/ 024 9:42 AM EDT documented as of this encounter Care Teams Vegetable Specker Relationship Specialty Start Date End Date Shlomo Hu MD [address] [facility] 110 [place] [address] PCP - General Internal Medicine 02/15/23 Jess Marsh LPN 112 [facility] 110 [place] [address] 12/06/24 Esthela Tesfaye, KIRA [address] [place] [address] Exhaust And Muffler Repairer Family Medicine 02/03/25 documented as of this encounter
--- OUTSIDE RECORDS SUMMARY | 2025-04-09 11:50 | XMS_ITS | Encounter Summary ---
Author Organization [facility] Address [address] [facility] [place] [address] Care Team Providers Care Car Runner Name Role Phone Shlomo Hu MD Primary Care Provider [phone] Claribel Scott RN Unavailable [phone] Jess Marsh MARINE MAMMAL TRAINER Unavailable Esthela Tesfaye BOMB SQUAD OFFICER Unavailable [phone] Encounter Details Date Type Department Care Team (Late st Contact Info) Description 11/22/2024 Abstract [facility] [place] [facility] [address] [facility] 110 [place] [address] Shlomo Hu MD 112 [facility] 110 [place] [address] Social History Tobacco Use Types Packs/Day Years [...] How often do you attend chur or voodoo services? 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 Not on file Not on file documented as of this encounter Plan of Treatment Upcoming Encounters Date Type Department Care Team (Late st Contact Info) Description 04/20/2025 3:00 PM EDT Office Visit [facility] [address] [place] [place] [address] Snony Rodriguez, DPM 3006 [facility] 5 [place] [address] 05/04/2025 2:50 PM EDT Office Visit [facility] [address] [place] [address] [place] [address] Sonny Rodriguez, DPM [address] [address] documented as of this encounter Visit Diagnoses Not on filedocumented in this encounter Additional Health Concerns Assessment Noted Time PHQ-9 Depression Total Score: 18 024 9:42 AM EDT documented as of this encounter Care Teams Car Runner Relationship Specialty Start Date End Date Shlomo Hu MD [address] [facility] 110 [place] [address] PCP - General Internal Medicine 02/15/23 Claribel Scott, RN [address] [place] [address] Licensed Practical Nurse Family Medicine 10/21/24 12/06/24 Jess Marsh LPN [address] [facility] 110 [place] [address] 12/06/24 Esthela Tesfaye LSW [address] [place] [address] Child Development Consultant Family Medicine 02/03/25 documented as of this encounter
--- OUTSIDE RECORDS SUMMARY | 2025-04-09 11:50 | XMS_ITS | Encounter Summary ---
Author Organization [facility] Address [address] [place] [address] Care Team Providers Care Director Reactor Projects Name Role Phone Joseph Sean Mona GALVEZ Primary Care Provider [phone] Jacob Sharp Unavailable Rasheeda Newton RD Unavailable [phone] Unavailable [phone] Fritz HENDERSON MD, Shlomo Momin Primary Care Provider [phone] Yuan Miller MD, PhD Unavailable [phone] Source Comments In the event this information is protected by the Federal Confidentiality of Alcohol and Drug AbusePatient Records regulations: The Federal rules restrict any use of the information to criminally investigate or prosecute any alcohol or drug abuse patient.[facility] Encounter Details Date Type Department Care Team (Late st Contact Info) Description 06/25/2022 Patient Msg Pre Anesthesia [address] [place] [address] Provider, Valerie Pre Anesthesia Consultation Clinic Appointment [...] N ot on file 08/20/2020 Data from: [email or web address] Last address used for calculation Not on [...] file Travel History Travel Start Travel End [place] 03/18/2025 03/26/2025 COVID-19 Exposure Response Date Recorded [...] 10:00 AM EDT Hospital Encounter Admitting [address] [id number] Yuan Miller MD, PhD [address] [id number] Nausea and vomiting, unspecified vomiting type [R11.2], H/O bariatric surgery [Z98.84], Jejunostomy tube fell out [T85.528A] 04/10/2025 10:00 AM EDT - 04/10/2025 12:00 PM EDT Surgery Admitting [address] [id number] Yuan Miller MD, PhD [address] [id number] LAPAROSCOPIC JEJUNOSTOMY 04/19/2025 11:00 AM EDT [facility] Neurological Scientologist [address] [id number] Joann Loera APRN.SOUP MIXER [address] [place] [address] Cognitive movement issues 04/21/2025 8:30 AM EDT [facility] Nutrition Therapy [address] [id number] Tiffany Banks, RD [address] [id number] f/u TF forula tolerance and hydration 05/18/2025 9:00 AM EDT [facility] General Surgery [address] [id number] Michael Mora PA-C [address] [place] [address] f/u with michael mora in 2 wks 05/29/2025 9:00 AM EDT [facility] Gastroenterology [address] [place] [address] Johanna Martinez MD [facility] [address] [address] 3 month follow up 06/28/2025 10:00 AM EDT [facility] Neurology Pain [address] [place] [address] [place] [address] [place], [place] [id number] Follow up for pain Scheduled Procedures Name [...] as of this encounter Care Teams Director Reactor Projects Relationship Specialty [place] [address] [place] [address] PCP - General Family Medicine 07/09/12 10/05/23 Shlomo Hu II, MD [address] [facility] 110 [place] [address] PCP - General Internal Medicine 10/06/23 Jacob Sharp [address] [place] [address] Referring 04/30/[address] [id number] Registered Dietitian Nutrition 06/24/[address] [place] [address] Registered Dietitian Nutrition 08/27/23 Yuan Miller MD, PhD 9500 [place] [address] Surgeon General Surgery 02/03/24 documented as of this encounter
--- OUTSIDE RECORDS SUMMARY | 2025-04-09 11:50 | XMS_ITS | Encounter Summary ---
Author Organization [facility] Address [address] [facility] [place] [address] Care Team Providers Care Ergonomics Technician Name Role Phone Shlomo Hu MD Primary Care Provider [phone] Claribel Scott RN Unavailable [phone] Jess Marsh REFRIGERATION MECHANIC Unavailable Esthela Tesfaye WATER GAS OPERATOR Unavailable [phone] Encounter Details Date Type Department Care Team (Late st Contact Info) Description 11/21/2024 Abstract [facility] [place] [facility] [address] [facility] 110 [place] [address] Shlomo Hu MD 112 [facility] 110 [place] [address] Social History Tobacco Use Types Packs/Day Years [...] Recorded Patient Health Questionnaire-2 Score 0 11/10/2024 [facility] of Occupat ional Health - [...] time in the past 12 m [facility], were you homeless or living in [...] 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 Not on file Not on file documented as of this encounter Plan of Treatment Upcoming Encounters Date Type Department Care Team (Late st Contact Info) Description 04/20/2025 3:00 PM EDT Office Visit [facility] [address] [place] [place] [address] Sonny Rodriguez, DPM 3006 [facility] 5 [place] [address] 05/04/2025 2:50 PM EDT Office Visit [facility] [address] [place] [place] [address] Sonny Rodriguez, DPM [address] [address] documented as of this encounter Visit Diagnoses Not on filedocumented in this encounter Additional Health Concerns Assessment Noted Time PHQ-9 Depression Total Score: 18 024 9:42 AM EDT documented as of this encounter Care Teams Ergonomics Technician Relationship Specialty Start Date End Date Shlomo Hu MD [address] [facility] 110 [place] [address] PCP - General Internal Medicine 02/15/23 Claribel Scott, RN 14[address] [place] [address] Licensed Practical Nurse Family Medicine 10/21/24 12/06/24 Jess Marsh LPN [address] [facility] 110 [place] [address] 12/06/24 Esthela Tesfaye LSW 1479 [place] [address] Data Deliverables Manager Family Medicine 02/03/25 documented as of this encounter
--- OUTSIDE RECORDS SUMMARY | 2025-04-09 11:50 | XMS_ITS | Encounter Summary ---
Author Organization [facility] Address [address] [facility] [place] [address] Care Team Providers Care Ampoule Sealer Name Role Phone Shlomo Hu MD Primary Care Provider [phone] Jess Marsh LPN Unavailable Esthela Tesfaye TRADEMARK AFFIXER Unavailable [phone] Encounter Details Date Type Department Care Team (Late st Contact Info) Description 03/29/2025 Abstract [facility] [place] [facility] [address] [facility] 110 [place] [address] Shlomo Hu MD [address] [facility] 110 [place] [address] Social History Tobacco Use Types Packs/Day Years [...] do you attend chur or jew services? 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 Not on file Not on file documented as of this encounter Plan of Treatment Upcoming Encounters Date Type Department Care Team (Late st Contact Info) Description 04/20/2025 3:00 PM EDT Office Visit [facility] [address] [facility] 120 [place] [address] Sonny Rodriguez, DPM 3006 [facility] 5 [place] [address] 05/04/2025 2:50 PM EDT Office Visit [facility] [address] [facility] 120 [place] [address] Sonny Rodriguez DPM [address] [address] documented as of this encounter Visit Diagnoses Not on filedocumented in this encounter Additional Health Concerns Assessment Noted Time PHQ-9 Depression Total Score: 18 024 9:42 AM EDT documented as of this encounter Care Teams Ampoule Sealer Relationship Specialty Start Date End Date Shlomo Hu MD [address] [facility] 110 [place] [address] PCP - General Internal Medicine 02/15/23 Jess Marsh LPN [address] [facility] 110 [place] [address] 12/06/24 Esthela Tesfaye, KIRA [address] [place] [address] Automation Sales Manager Family Medicine 02/03/25 documented as of this encounter
--- OUTSIDE RECORDS SUMMARY | 2025-04-09 11:50 | XMS_ITS | Encounter Summary ---
Author Organization [facility] Address [address] [facility] [place] [address] Care Team Providers Care Boat Canvas Maker Installer Name Role Phone Shlomo Hu MD Primary Care Provider [phone] Jess Marsh LPN Unavailable Esthela Tesfaye WEIGH BOSS Unavailable [phone] Encounter Details Date Type Department Care Team (Late st Contact Info) Description 12/14/2024 Abstract [facility] [place] [facility] [address] [facility] 110 [place] [address] Shlomo Hu MD [address] [place] [facility] 110 [place] [address] Social History Tobacco Use Types Packs/Day Years [...] Recorded Patient Health Questionnaire-2 Score 0 12/01/2024 [facility] of Occupat ional Health - Occupational [...] 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 Not on file Not on file documented as of this encounter Plan of Treatment Upcoming Encounters Date Type Department Care Team (Late st Contact Info) Description 04/20/2025 3:00 PM EDT Office Visit [facility] [address] [facility] 120 [place] [address] Sonny Rodriguez, DPM 3006 [facility] 5 [place] [address] 05/04/2025 2:50 PM EDT Office Visit [facility] [address] [facility] 120 [place] [address] Sonny Rodriguez DPM [address] [address] documented as of this encounter Visit Diagnoses Not on filedocumented in this encounter Additional Health Concerns Assessment Noted Time PHQ-9 Depression Total Score: 18 024 9:42 AM EDT documented as of this encounter Care Teams Boat Canvas Maker Installer Relationship Specialty Start Date End Date Shlomo Hu MD [address] [facility] 110 [place] [address] PCP - General Internal Medicine 02/15/23 Jess Marsh LPN [address] [facility] 110 [place] [address] 12/06/24 Esthela Tesfaye, KIRA [address] [place] [address] Laboratory Technician Family Medicine 02/03/25 documented as of this encounter
--- OUTSIDE RECORDS SUMMARY | 2025-04-09 11:50 | XMS_ITS | Encounter Summary ---
Author Organization [facility] Address [address] [facility] [place] [address] Care Team Providers Care Work Adjustment Instructor Name Role Phone Shlomo Hu MD Primary Care Provider [phone] Claribel Scott RN Unavailable [phone] Jess Marsh SYSTEM MANAGER Unavailable Esthela Tesfaye DOPE POURER Unavailable [phone] Encounter Details Date Type Department Care Team (Late st Contact Info) Description 12/06/2024 Abstract [facility] [place] [facility] [address] [facility] 110 [place] [address] Shlomo Hu MD 112 [facility] 110 [place] [address] Social History Tobacco Use Types Packs/Day Years [...] How often do you attend chur or protestant services? Never 04/18/2024 Do you belong to [...] Recorded Patient Health Questionnaire-2 Score 0 12/01/2024 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 Not on file Not on file documented as of this encounter Plan of Treatment Upcoming Encounters Date Type Department Care Team (Late st Contact Info) Description 04/20/2025 3:00 PM EDT Office Visit [facility] [address] [place] [address] [place] [address] Sonny Rodriguez, DPM 3006 [facility] 5 [place] [address] 05/04/2025 2:50 PM EDT Office Visit [facility] [address] [place] [address] Sonny Rodriguez, DPM [address] [address] documented as of this encounter Visit Diagnoses Not on filedocumented in this encounter Additional Health Concerns Assessment Noted Time PHQ-9 Depression Total Score: 18 024 9:42 AM EDT documented as of this encounter Care Teams Work Adjustment Instructor Relationship Specialty Start Date End Date Shlomo Hu MD [address] [facility] 110 [place] [address] PCP - General Internal Medicine 02/15/23 Claribel Scott, RN [address] [place] [address] Licensed Practical Nurse Family Medicine 10/21/24 12/06/24 Jess Marsh LPN [address] [facility] 110 [place] [address] 12/06/24 Esthela Tesfaye LSW [address] [place] [address] Retinal Surgeon Family Medicine 02/03/25 documented as of this encounter
--- OUTSIDE RECORDS SUMMARY | 2025-04-09 11:50 | XMS_ITS ---
Author Organization [facility] Address [address] [place] [address] Care Team Providers Care Pediatric Registered Nurse Name Role Phone Shlomo Hu MD Primary Care Provider [phone] Jess Marsh LPN Unavailable Esthela Tesfaye Unavailable [phone] 30 Day Monitoring Program Status:Enrolled (Active) Start date:04/05/2025 Enrollment date:04/05/2025 Case Team Name Relationship Phone Jess Marsh LPN(Responsible Staff) [phone] Continued Care and Services Coordination
--- OUTSIDE RECORDS SUMMARY | 2025-04-09 11:50 | XMS_ITS | Encounter Summary ---
Author Organization [facility] Address [address] [place] [address] Care Team Providers Care Ore Bridge Operator Name Role Phone Shlomo Hu MD Primary Care Provider [phone] Jess Marsh LPN Unavailable Esthela Tesfaye CONTINUOUS WAVE OPERATOR Unavailable [phone] Encounter Details Date Type Department Care Team (Late st Contact Info) Description 04/06/2025 Patient Outreach [facility] [address] [place] [id number] Jess Marsh LPN [address] [place] [address] [place] [address] Social History Tobacco Use Types [...] often do you attend chur ch or sikhism services? 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 Question Answer Date of Assessment Author Little interest or pleasure in doing things Several days 04/06/2025 8:03 AM PARTHA VILLATORO Feeling down, depressed, or hopeless Several days 03/15 8:03 AM PARTHA VILLATORO Patient Health Questionnaire-2 Score 2 03/15 8:03 AM PARTHA VILLATORO * If you checked off any problems on this questionnaire so far, Question Answer Date of Assessment Author How difficult have these problems made it for you to do your work, take care of things at home, or get along with other people? Somewhat difficult 04/06/2025 8:03 AM PARTHA VILLATORO documented as of this encounter Progress Notes * Jess Marsh LPN - 04/06/2025 9:33 AM EDT Pt calls after her appt this a.m she is to start Ertapenem 1 gram IV for 7 days. 0.9 NS IV 1 liter daily, Zofran PRN. Pt needs midline placed and asks medical technical writer to sent this order to [facility] so she can go wherever they can get her in faster. Shrimp Peeling Machine Tender faxes Midline order to [facility]. Pt calls and states that [facility] can do the infusions at her home and that orders need to be sent to [facility] so that she may get these medications by tonight or tomorrow. Pt later calls back and states when she spoke with [facility] they said that they could do pts infusions there at there center. Pt would like to do this because they are only 5 minutes from her and have the medicationsavailable. Shrimp Peeling Machine Tender faxes IV antibiotic, saline and zofran orders to [facility] central scheduling. Pt calls and asks about receiving a banana bag d/t all the vomiting and loose stools. Shrimp Peeling Machine Tender talks withAngelina Polk AUDIO VISUAL COLLECTIONS COORDINATOR and gets the ok to order a banana bag for pt as well. Banana bag order faxed to [facility]. Pt calls and states that [facility] has not received the orders ( medical technical writer has faxed these orders to centralized scheduling and number provided to medical technical writer from pt peer [facility] infusion center.) Pt iswilling to car pick up driver orders in office to get them to them. Shrimp Peeling Machine Tender prints copies of orders so pt may car pick up driver. Pt calls back and states she believes she may [facility] doing her infusions now d/t concern that [facility] may not be able to do her infusions over the weekend. Shrimp Peeling Machine Tender faxes orders [facility] to [facility] again d/t pt letting medical technical writer know [facility] stated they did not receive orders. Pt calls again and lets medical technical writer know that [facility] will do her infusions over the weekend so she will stay there and get them done. [facility] has received the orders however they need a stop dateon the Ertapenem. Shrimp Peeling Machine Tender faxes new order to Ertapenem with stop date included to [facility] for pt. Shrimp Peeling Machine Tender calls [facility] to let them know that pt will be going to [facility] for her IV antibiotic/infusions and they can disregard the orders now. Pt is going to be receiving her Banana bag and first dose of antibiotic tonight. Pt thanks medical technical writer for assistance. documented in this encounter Plan of Treatment Upcoming Encounters Date Type Department Care Team (Late st Contact Info) Description 04/20/2025 3:00 PM EDT [facility] [address] [facility] 120 [place] [address] Sonny Rodriguez DPM [address] [address] 05/04/2025 2:50 PM EDT Office Visit [facility] [address] [facility] 120 [place] [address] Sonny Rodriguez DPM [address] [address] documented as of this encounter Visit Diagnoses Diagnosis Malnutrition of moderate degree (HHS-HCC)- Primary Malnutrition of moderate degree Intractable nausea and vomiting 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 DARREN (generalized anxiety disorder) Generalized anxiety disorder documented in this encounter Additional Health Concerns Assessment Noted Time PHQ-9 Depression Total Score: 18 024 9:42 AM EDT documented as of this encounter Care Teams Ore Bridge Operator Relationship Specialty Start Date End Date Shlomo Hu MD [address] [facility] 110 [place] [address] PCP - General Internal Medicine 02/15/23 Jess Marsh LPN [address] [facility] 110 [place] [address] 12/06/24 Esthela Tesfaye, KIRA [address] [place] [address] Weeder Thinner [facility] 02/03/25 documented as of this encounter
--- OUTSIDE RECORDS SUMMARY | 2025-04-09 11:50 | XMS_ITS | Encounter Summary ---
Author Organization [facility] Address [address] [facility] [place] [address] Care Team Providers Care Community Outreach Coordinator Name Role Phone Shlomo Hu MD Primary Care Provider [phone] Claribel Scott RN Unavailable [phone] Jess Marsh HVAC SALES REPRESENTATIVE Unavailable Esthela Tesfaye CUSTOMER PROGRAM MANAGER Unavailable [phone] Encounter Details Date Type Department Care Team (Late st Contact Info) Description 11/22/2024 Abstract [facility] [place] [facility] [address] [facility] 110 [place] [address] Shlomo Hu MD 112 [facility] [place] [facility] 110 [place] [address] Social History Tobacco Use Types Packs/Day Years [...] do you attend chur or sikh services? 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 Not on file Not on file documented as of this encounter Plan of Treatment Upcoming Encounters Date Type Department Care Team (Late st Contact Info) Description 04/20/2025 3:00 PM EDT Office Visit [facility] [address] [place] [address] [place] [address] Sonny Rodriguez, DPM 3006 [facility] 5 [place] [address] 05/04/2025 2:50 PM EDT Office Visit [facility] [address] [place] [address] [place] [address] Sonny Rodriguez, DPM [address] [address] documented as of this encounter Visit Diagnoses Not on filedocumented in this encounter Additional Health Concerns Assessment Noted Time PHQ-9 Depression Total Score: 18 024 9:42 AM EDT documented as of this encounter Care Teams Community Outreach Coordinator Relationship Specialty Start Date End Date Shlomo Hu MD [address] [facility] 110 [place] [address] PCP - General Internal Medicine 02/15/23 Claribel Scott, RN 14[address] [place] [address] Licensed Practical Nurse Family Medicine 10/21/24 12/06/24 Jess Marsh LPN [address] [facility] 110 [place] [address] 12/06/24 Esthela Tesfaye LSW 1479 [place] [address] Event Decorator Family Medicine 02/03/25 documented as of this encounter
--- OUTSIDE RECORDS SUMMARY | 2025-04-09 11:50 | XMS_ITS | Encounter Summary ---
Author Organization [facility] Address [address] [facility] [place] [address] Care Team Providers Care Data Processing Control Clerk Name Role Phone Shlomo Hu MD Primary Care Provider [phone] Jess Marsh LPN Unavailable Esthela Tesfaye THREADING MACHINE TENDER Unavailable [phone] Encounter Details Date Type Department Care Team (Late st Contact Info) Description 04/06/2025 Bamboo flowsheet [facility] [place] [facility] [address] [facility] 110 [place] [address] Angelina Polk, MANAGER TRANSPORTATION PLANNING [address] [facility] 110 [place] [address] Social History Tobacco Use Types Packs/Day Years [...] How often do you attend chur or zoroastrianism services? 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 Not on file Not on file documented as of this encounter Plan of Treatment Upcoming Encounters Date Type Department Care Team (Late st Contact Info) Description 04/20/2025 3:00 PM EDT Office Visit [facility] [address] [facility] 120 [place] [address] Sonny Rodriguez, DPM 3006 [facility] 5 [place] [address] 05/04/2025 2:50 PM EDT Office Visit [facility] [address] [facility] 120 [place] [address] Sonny Rodriguez DPM [address] [address] documented as of this encounter Visit Diagnoses Not on filedocumented in this encounter Additional Health Concerns Assessment Noted Time PHQ-9 Depression Total Score: 18 024 9:42 AM EDT documented as of this encounter Care Teams Data Processing Control Clerk Relationship Specialty Start Date End Date Shlomo Hu MD [address] [facility] 110 [place] [address] PCP - General Internal Medicine 02/15/23 Jess Marsh LPN [address] [facility] 110 [place] [address] 12/06/24 Esthela Tesfaye, KIRA [address] [place] [address] Sausage Wrapper Family Medicine 02/03/25 documented as of this encounter
--- OUTSIDE RECORDS SUMMARY | 2025-04-09 11:50 | XMS_ITS | Encounter Summary ---
Author Organization [facility] Address [address] [place] [place] [address] Care Team Providers Care Data Entry Associate Name Role Phone Shlomo Hu MD Primary Care Provider [phone] Claribel Scott RN Unavailable [phone] Jess Marsh ELECTRICIAN BUS Unavailable Esthela Tesfaye FAMILY ENGAGEMENT SPECIALIST Unavailable [phone] Encounter Details Date Type Department Care Team (Late st Contact Info) Description 11/22/2024 Abstract [facility] [place] [facility] [address] [facility] 110 [place] [address] Shlomo Hu MD 112 [facility] 110 [place] [address] Social History Tobacco Use Types Packs/Day Years [...] Recorded Patient Health Questionnaire-2 Score 0 11/10/2024 [facility] of Occupat ional [...] 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 Not on file Not on file documented as of this encounter Plan of Treatment Upcoming Encounters Date Type Department Care Team (Late st Contact Info) Description 04/20/2025 3:00 PM EDT Office Visit [facility] [address] [place] [address] [place] [address] Sonny Rodriguez, DPM 3006 [facility] 5 [place] [address] 05/04/2025 2:50 PM EDT Office Visit [facility] [address] [place] [address] [place] [address] Sonny Rodriguez, DPM [address] [address] documented as of this encounter Visit Diagnoses Not on filedocumented in this encounter Additional Health Concerns Assessment Noted Time PHQ-9 Depression Total Score: 18 024 9:42 AM EDT documented as of this encounter Care Teams Data Entry Associate Relationship Specialty Start Date End Date Shlomo Hu MD [address] [facility] 110 [place] [address] PCP - General Internal Medicine 02/15/23 Claribel Scott, RN 1472 [place] [address] Licensed Practical Nurse Family Medicine 10/21/24 12/06/24 Jess Marsh LPN [address] [facility] 110 [place] [address] 12/06/24 Esthela Tesfaye LSW 1479 [place] [address] Motorman/Woman Family Medicine 02/03/25 documented as of this encounter
--- OUTSIDE RECORDS SUMMARY | 2025-04-09 11:50 | XMS_ITS | Encounter Summary ---
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 [...] hopeless Several days 03/15 8:03 AM EDT YANETH, PARTHA Patient Health Questionnaire-2 Score 2 03/15 8:03 [...] [address] [place] [address] [place] [address] Sonny Rodriguez DPM [address] [address] 05/04/2025 2:50 PM EDT Office Visit [facility] [address] [place] [address] [place] [address] Sonny Rodriguez DPLudmila [address] [address] documented as of this encounter Visit Diagnoses Not on filedocumented in this encounter Additional Health Concerns Assessment Noted Time PHQ-9 Depression Total Score: 18 024 9:42 AM EDT documented as of this encounter Care Teams Air Quality Engineer Relationship Specialty Start Date End Date Shlomo Hu MD [address] [place] [address] [place] [address] PCP - General Internal Medicine 02/15/23 Jess Marsh LPN [address] [place] [address] [place] [address] 12/06/24 Esthela Tesfaye, NEWS ASSISTANT [address] [place] [address] Solar Photovoltaic Systems Engineer Family Medicine 02/03/25 documented as of this encounter
--- OUTSIDE RECORDS SUMMARY | 2025-04-09 11:50 | XMS_ITS | Encounter Summary ---
Author Organization [facility] Address [address] [place] [address] Care Team Providers Care Supportive Employment Case Manager Name Role Phone Jacob Sharp Unavailable Rasheeda Newton [address] Unavailable [phone] Unavailable [phone] Fritz HENDERSON MD, Shlomo B Primary Care Provider [phone] Yuan Miller MD, PhD Unavailable [phone] Source Comments In the event this information is protected by the Federal Confidentiality of Alcohol and Drug AbusePatient Records regulations: The Federal rules restrict any use of the information to criminally investigate or prosecute any alcohol or drug abuse patient.[facility] Encounter Details Date Type Department Care Team (Late st Contact Info) Description 11/29/2024 GI Preprocedure Call Gastroenterology [address] [id number] Yumiko Stevens, PIETRO Social History Tobacco Use Types Packs/Day Years Used Date Smoking Tobacco: Never Smokeless Tobacco: Never Alcohol Use Standard Drinks/Week Comments Not Currently 0 (1 standard drink = 0.6 oz pur e alcohol) [facility] Utilities Answer Date Recorded In the past 12 months has th e electric, gas, oil, or water [employer] threatened to shut off services in your [...] risk 4 03/05/2023 Data from: https://www.neighborhoodatlas.medicine.[facility]/. Last address used for calculation [address] [address] 03/05/2023 Comments No Sex [...] file Travel History Travel Start Travel End [place] 03/18/2025 03/26/2025 documented as of this encounter [...] have family/friend present for procedure transport home:Patient/patient brand representative was told that if they do [...] Any barriers to Patient learning: Patient/Patient Senior Treasury Consultant responded appropriately on phone. Type of instruction given: Verbal by telephone contact. documented in this encounter Plan of Treatment Upcoming Encounters Date Type Department Care Team (Latest Contact Info) Description 04/10/2025 10:00 AM EDT Hospital Encounter Admitting [address] [place] [address] [place] [address] [place], [place] [id number] Nausea and vomiting, unspecified vomiting type [R11.2], H/O bariatric surgery [Z98.84], Jejunostomy tube fell out [T85.528A] 04/10/2025 10:00 AM EDT - 04/10/2025 12:00 PM EDT Surgery Admitting [address] [place] [address] Yuan Miller MD, PhD [facility] [place] [id number] LAPAROSCOPIC JEJUNOSTOMY 04/19/2025 11:00 AM EDT [facility] Neurological Orthodoxy [address] [place] [address] Joann Loera APRN.SKIN DRIER [address]00 [place] [address] Cognitive movement issues 04/21/2025 8:30 AM EDT [facility] Nutrition Therapy [address] [address] Tiffany Banks, RD [address]00 [place] [address] f/u TF forula tolerance and hydration 05/18/2025 9:00 AM EDT [facility] General Surgery 9300 [place] [address] Michael Mora PA-C [address]00 [place] [address] f/u with michael mora in 2 wks 05/29/2025 9:00 AM EDT [facility] Gastroenterology [address] [address] Johanna Martinez MD [facility] [address] [address] 3 month follow up 06/28/2025 10:00 AM EDT [facility] Neurology Pain [address] [place] [address] [place] [address] [place] [address] Follow up for pain Scheduled Procedures Name Priority Associated Diagnoses Date/Ti me LAPAROSCOPIC JEJUNOSTOMY Nausea and vomiting, unspecified vomiting type H/O bariatric surgery Jejunostomy tube fell out 04/10/2025 10:00 AM EDT documented as of this encounter Visit Diagnoses Not on filedocumented in this encounter Care Teams Supportive Employment Case Manager Relationship Specialty Start Date End Date Shlomo Hu II, MD [address] [facility] 110 [place] [address] PCP - General Internal Medicine 10/06/23 Jacob Sharp [address] [place] [address] Referring 04/30/[address] [place] [id number] Registered Dietitian Nutrition 06/24/[address] [place] [address] Registered Dietitian Nutrition 08/27/23 Yuan Miller MD, PhD [address]00 [place] [address] Surgeon General Surgery 02/03/24 documented as of this encounter
--- OUTSIDE RECORDS SUMMARY | 2025-04-09 11:50 | XMS_ITS ---
Author Organization [facility] Address [address] [place] [address] Care Team Providers Care Trust Vault Custodian Name Role Phone Shlomo Hu MD Primary Care Provider [phone] Jess Marsh LPN Unavailable Esthela Tesfaye TRENCHER DRIVER Unavailable [phone] Inpatient Discharge Transitional Care Management (TCM) Status:Closed (Closed) Start date:04/04/2025 Enrollment date:04/05/2025 Enrollment reason:Identified using hospital discharge data End date:04/05/2025 Close reason:Moved to 30 Day Monitoring Program Overview Patient discharged from [facility] on 04/04. Please contact for hospital BOOM and schedule follow-up appointment within 7-14 days. Continued Care and Services Coordination
--- OUTSIDE RECORDS SUMMARY | 2025-04-09 11:50 | XMS_ITS | Encounter Summary ---
Author Organization [facility] Address [address] [facility] [place] [address] Care Team Providers Care Detail Maker And Fitter Name Role Phone hSlomo Hu MD Primary Care Provider [phone] Claribel Scott RN Unavailable [phone] Jess Marsh REDRAWER Unavailable Esthela Tesfaye DIRECT MARKETING REPRESENTATIVE Unavailable Encounter Details Date Type Department Care Team (Late st Contact Info) Description 11/21/[address] [place] 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 Not on file Not on file documented as of this encounter Plan of Treatment Upcoming Encounters Date Type Department Care Team (Late st Contact Info) Description 04/20/2025 3:00 PM EDT Office Visit [facility] [address] [place] [address] [place] [address] Sonny Rodriguez, DPM 3006 [facility] 5 [place] [address] 05/04/2025 2:50 PM EDT Office Visit [facility] [address] [place] [address] [place] [address] Sonny Rodriguez, DPM [address] [address] documented as of this encounter Visit Diagnoses Not on filedocumented in this encounter Additional Health Concerns Assessment Noted Time PHQ-9 Depression Total Score: 18 024 9:42 AM EDT documented as of this encounter Care Teams Detail Maker And Fitter Relationship Specialty Start Date End Date Shlomo Hu MD [address] [facility] 110 [place] [address] PCP - General Internal Medicine 02/15/23 Claribel Scott, RN 14[address] [place] [address] Licensed Practical Nurse Family Medicine 10/21/24 12/06/24 Jess Marsh LPN [address] [facility] 110 [place] [address] 12/06/24 Esthela Tesfaye LSW 1479 [place] [address] Desk Pens Assembler Family Medicine 02/03/25 documented as of this encounter
--- OUTSIDE RECORDS SUMMARY | 2025-04-09 11:50 | XMS_ITS | Encounter Summary ---
Author Organization [facility] Address [address] [facility] [place] [address] Care Team Providers Care Traffic Engineering Technician Name Role Phone Shlomo Hu MD Primary Care Provider [phone] Jess Marsh LPN Unavailable Esthela Tesfaye WAREHOUSE ORDER FILLER Unavailable [phone] Encounter Details Date Type Department Care Team (Late st Contact Info) Description 12/07/2024 Abstract [facility] [place] [facility] [address] [facility] 110 [place] [address] Shlomo Hu MD 112 [facility] 110 [place] [address] Social History Tobacco Use Types Packs/Day Years [...] Recorded Patient Health Questionnaire-2 Score 0 12/01/2024 [facility] of Occupat ional Health - [...] 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 Not on file Not on file documented as of this encounter Plan of Treatment Upcoming Encounters Date Type Department Care Team (Late st Contact Info) Description 04/20/2025 3:00 PM EDT Office Visit [facility] [address] [facility] 120 [place] [address] Sonny Rodriguez, DPM 3006 [facility] 5 [place] [address] 05/04/2025 2:50 PM EDT Office Visit [facility] [address] [facility] 120 [place] [address] Sonny Rodriguez DPM [address] [address] documented as of this encounter Visit Diagnoses Not on filedocumented in this encounter Additional Health Concerns Assessment Noted Time PHQ-9 Depression Total Score: 18 024 9:42 AM EDT documented as of this encounter Care Teams Traffic Engineering Technician Relationship Specialty Start Date End Date Shlomo uH MD [address] [facility] 110 [place] [address] PCP - General Internal Medicine 02/15/23 Jess Marsh LPN [address] [facility] 110 [place] [address] 12/06/24 Esthela Tesfaye, KIRA [address] [place] [address] Ham Sawyer Family Medicine 02/03/25 documented as of this encounter
--- OUTSIDE RECORDS SUMMARY | 2025-04-09 11:50 | XMS_ITS | Encounter Summary ---
Author Organization [facility] Address [address] [place] [address] Care Team Providers Care Marketing Outreach Coordinator Name Role Phone Jacob Sharp Unavailable Rasheeda Newton RD Unavailable [phone] Unavailable [phone] Fritz HENDERSON MD, Shlomo Momin Primary Care Provider [phone] Yuan Miller MD, PhD Unavailable [phone] Source Comments In the event this information is protected by the Federal Confidentiality of Alcohol and Drug AbusePatient Records regulations: The Federal rules restrict any use of the information to criminally investigate or prosecute any alcohol or drug abuse patient.[facility] Encounter Details Date Type Department Care Team (Late st Contact Info) Description 12/01/2024 Patient Msg Gastroenterology [address] [phone] Provider, Ccf External wipes for use Social History Tobacco Use Types Packs/Day Years Used Date Smoking Tobacco: Never Smokeless Tobacco: Never Alcohol Use Standard Drinks/Week Comments Not Currently 0 (1 standard drink = 0.6 oz pur e alcohol) [facility] Utilities Answer Date Recorded In the past 12 months has th e electric, gas, oil, or water [employer] threatened to shut off services in your [...] risk 4 03/05/2023 Data from: https://www.neighborhoodatlas.medicine.[facility]/. Last address used for calculation 17[address] [...] file Travel History Travel Start Travel End [place] 03/18/2025 03/26/2025 documented as of this encounter [...] 10:00 AM EDT Hospital Encounter Admitting 9500 [place] [address] Yuan Miller MD, PhD [address] [phone] Nausea and vomiting, unspecified vomiting type [R11.2], H/O bariatric surgery [Z98.84], Jejunostomy tube fell out [T85.528A] 04/10/2025 10:00 AM EDT - 04/10/2025 12:00 PM EDT Surgery Admitting [address] [id number] Yuan Miller MD, PhD [address] [phone] LAPAROSCOPIC JEJUNOSTOMY 04/19/2025 11:00 AM EDT [facility] Neurological Buddhist [address] [phone] Joann Loera APRN.MEN'S LEATHER DRESS BELT MAKER [address] [phone] Cognitive movement issues 04/21/2025 8:30 AM EDT [facility] Nutrition Therapy [address] [address] Tiffany Banks, RD 9500 [place] [address] f/u TF forula tolerance and hydration 05/18/2025 9:00 AM EDT [facility] General Surgery [address]99 [place] [address] Michael Mora PA-C 9500 [place] [address] f/u with michael mora in 2 wks 05/29/2025 9:00 AM EDT [facility] Gastroenterology [address] [phone] Johanna Martinez MD [facility] [address] [place] [address] 3 month follow up 06/28/2025 10:00 AM EDT [facility] Neurology Pain [address] [phone] Quique WilmaDO [address] [place] [address] Follow up for pain Scheduled Procedures Name Priority Associated Diagnoses Date/Ti me LAPAROSCOPIC JEJUNOSTOMY Nausea and vomiting, unspecified vomiting type H/O bariatric surgery Jejunostomy tube fell out 04/10/2025 10:00 AM EDT documented as of this encounter Visit Diagnoses Not on filedocumented in this encounter Care Teams Marketing Outreach Coordinator Relationship Specialty Start Date End Date Shlomo Hu II, MD [address] [place] [address] 110 [place] [address] PCP - General Internal Medicine 10/06/23 Jacob Sharp [address] [place] [phone] Referring 04/30/[address] [place] [address] [phone] Registered Dietitian Nutrition 06/24/[address] [phone] Registered Dietitian Nutrition 08/27/23 Yuan Miller MD, PhD [address]00 [place] [address] Surgeon General Surgery 02/03/24 documented as of this encounter
--- OUTSIDE RECORDS SUMMARY | 2025-04-09 11:50 | XMS_ITS | Encounter Summary ---
Author Organization [facility] Address [address] [place] [address] Care Team Providers Care Senior Branch Manager Name Role Phone Shlomo Hu MD Primary Care Provider [phone] Jess Marsh LPN Unavailable Esthela Tesfaye AIR CHIPPER Unavailable [phone] Encounter Details Date Type Department Care Team (Late st Contact Info) Description 03/28/2025 Clinisync Result Encounter [facility] External Department Unsolicited Yanci Aguilar PA 112 [facility] 110 [place], [place] [phone] Social History Tobacco Use Types Packs/Day Years [...] How often do you attend chur or buddhism services? 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 Not on file Not on file documented as of this encounter Plan of Treatment Upcoming Encounters Date Type Department Care Team (Late st Contact Info) Description 04/20/2025 3:00 PM EDT Office Visit [facility] [address] [facility] 120 [place] [address] Sonny Rodriguez, RAVIM [address] [address] 05/04/2025 2:50 PM EDT Office Visit [facility] [address] [facility] 120 [place] [address] Sonny Rodriguez, EFREN [address] [address] documented as of this encounter Procedures Procedure Name Priority Date/Time Associated Diagnosis Comments C. DIFFICILE PCR Routine 03/28/2025 9:43 AM EDT CAMPYLOBACTER CULTURE Routine 03/28/2025 9:43 AM EDT SALMONELLA/SHIGELLA SCREEN Routine 03/28/2025 9:43 AM EDT E COLI SHIGA TOXIN EIA Routine 9:43 AM EDT ALL CBC WITH AUTO DIFF Routine 9:19 AM EDT ALL BASIC METABOLIC PANEL Routine 03/28/2025 9:19 AM EDT documented in this encounter Results * CAMPYLOBACTER CULTURE (03/28/2025 9:43 AM EDT) Pathologist [facility] CAMPYLOBACTER CULTURE Campylobacter Culture No Campylobacter species isolated. [facility] 03/28/2025 9:43 AM EDT 03/28/2025 10:24 AM EDT Narrative [facility] - 04/01/2025 5:09 PM EDT us Yanci PORTER LAB BLOOD ORDERABLES Final Res ult [facility] * SALMONELLA/SHIGELLA SCREEN (03/28/2025 9:43 AM EDT) SALMONELLA/SH IGELLA SCREEN Salmonella/Ching gella Screen [facility] SALMONELLA/SH IGELLA SCREEN No Salmonella or Shigella recovered. [facility] 03/28/2025 9:43 AM EDT 03/28/2025 10:24 AM EDT Narrative [facility] - 04/01/2025 5:09 PM EDT us Yanci Aguilar PA LAB BLOOD ORDERABLES Final Res ult [facility] * E COLI SHIGA TOXIN EIA (03/28/2025 9:43 AM EDT) E COLI SHIGA TOXIN EIA E coli Shiga Toxin EIA [facility] E COLI SHIGA TOXIN EIA Negative [facility] E COLI SHIGA TOXIN EIA Performed at: [facility] E COLI SHIGA TOXIN EIA [address] [place] [id number] [facility] E COLI SHIGA TOXIN EIA Fruit Buying Grader: Scott Harrell PhD, Phone: [phone] [facility] 03/28/2025 9:43 AM EDT 03/28/2025 10:24 AM EDT Narrative [facility] - 04/01/2025 5:09 PM EDT us Yanci Aguilar PA LAB BLOOD ORDERABLES Final Res ult Performing Organization Address [facility]/ZIP Co de Phone Number [facility] * C. DIFFICILE PCR (03/28/2025 9:43 AM EDT) C. DIFFICILE PCR NEGATIVE [facility] 03/28/2025 9:43 AM EDT 03/28/2025 10:24 AM EDT Narrative [facility] - 03/28/2025 2:14 PM EDT us Yanci Aguilar PA LAB BLOOD ORDERABLES Final Res ult [facility] * (ABNORMAL) ALL BASIC METABOLIC PANEL (03/28/2025 9:19 AM EDT) Pathologist [facility] SODIUM 145 136 - 145 mmol/L [facility] POTASSIUM 3.3(L) 3.5 - 5.1 mmol/L [facility] CHLORIDE 107 98 - 107 mmol/L [facility] CARBON DIOXIDE 26.8 21.0 - 32.0 mmol/L [facility] ANION GAP 14.5 [facility] GLUCOSE 93 74 - 106 mg/dL [facility] BLOOD UREA NITROGEN 9.0 7.0 - 18.0 mg/dL [facility] CREATININE 0.74 0.55 - 1.02 mg/dL [facility] EGFR-AF KAZAKH >60 >=60 mL/min/1.7 3m 2 [facility] TBH EGFR-NON AF KAZAKH >60 >=60 mL/min/1.7 3m 2 [facility] BUN CREATININE RATIO 12.2 [facility] CALCIUM 8.9 8.5 - 10.1 mg/dL [facility] 03/28/2025 9:19 AM EDT 03/28/2025 9:20 AM EDT Narrative [facility] - 03/28/2025 10:42 AM EDT us Yanci PORTER [facility] Final Result [facility] * (ABNORMAL) ALL CBC WITH AUTO DIFF (03/28/2025 9:19 AM EDT) Pathologist [facility] WBC 5.7 4.0 - 11.0 10 3/uL [facility] TB RBC 4.38 4.20 - 5.40 10 6/uL [facility] TBH HGB 12.5 12.0 - 16.0 g/dL [facility] TBH HCT 37.9 36.0 - 48.0 % [facility] TBH MCV 86.5 81.0 - 99.0 fL TBH TBH MCH 28.5 26.7 - 34.0 pg TBH TBH MCHC 33.0 29.9 - 35.2 g/dL [facility] TBH RDW 13.9 11.0 - 15.0 % TBH TBH PLT 329 150 - 450 10 3/uL TBH TBH MPV 9.9 9.5 - 13.5 fL [facility]H NEUTROPHILS PERCENT AUTO 53.7 43.0 - 75.0 % [facility] LYMPHOCYTES PERCENT AUTO 30.5 20.5 - 60.0 % [facility] MONOCYTES PERCENT AUTO 13.3(H) 1.7 - 12.0 % [facility]H EO % 1.1 0.9 - 7.0 % [facility] BASOPHILS PERCENT AUTO 0.7 0.2 - 2.0 % [facility] IMMATURE GRANULOCYTES PCT AUTO 0.7(H) 0.0 - 0.5 % [facility] NEUTROPHILS ABSOLUTE AUTO 3.1 1.4 - 6.5 10 3/uL [facility] LYMPHOCYTES ABSOLUTE AUTO 1.7 1.2 - 3.8 10 3/uL TB[facility] MONOCYTES ABSOLUTE AUTO 0.8 0.3 - 0.8 10 3/uL TBH TBH EO # 0.1 0.0 - 0.7 10 3/uL TB[facility] BASOPHILS ABSOLUTE AUTO 0.0 0.0 - 0.1 10 3/uL [facility] IMMATURE GRANULOCYTES ABS AUTO 0.04(H) 0.00 - 0.03 10 3/uL [facility] 03/28/2025 9:19 AM EDT 03/28/2025 9:20 AM EDT Narrative [facility] - 03/28/2025 9:25 AM EDT Yanci PORTER [facility] Final Result [facility] documented in this encounter Visit Diagnoses Not on filedocumented in this encounter Additional Health Concerns Assessment Noted Time PHQ-9 Depression Total Score: 18 05/10/2 024 9:42 AM EDT documented as of this encounter Care Teams Senior Branch Manager Relationship Specialty Start Date End Date Shlomo Hu MD [address] [facility] 110 [place] [address] PCP - General Internal Medicine 02/15/23 Jess Marsh LPN [address] [facility] 110 [place] [address] 12/06/24 Esthela Tesfaye, KIRA [address] [place] [address] Environmental Auditor Family Medicine 02/03/25 documented as of this encounter
--- OUTSIDE RECORDS SUMMARY | 2025-04-09 11:50 | XMS_ITS | Encounter Summary ---
Author Organization [facility] Address [address] [place] [address] Care Team Providers Care Caustic Plant Worker Name Role Phone Shlomo Hu MD Primary Care Provider [phone] Jess Marsh LPN Unavailable Esthela Tesfaye CENTRIFUGE SEPARATOR TENDER Unavailable [phone] Encounter Details Date Type Department Care Team (Late st Contact Info) Description 03/29/2025 Patient Outreach [facility] [address] [place] 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 Pt had left message inquiring if she needs blood cultures and if they can be ordered. Pt states that home health aide was was in and suggested pt ask about blood cultures d/t pt continuing to feel poorly. Pts Cdiff lab came back negative but pt states it will be up to 2 days or more before stool culture comes back. I let pt know I will talk with PCP and get back with her. Gsa Coordinator speaks to CHARLOTTE Fragoso and she states that blood cultures are typically done inpatient and that pts WBC count was normal and does not feel a blood culture is necessary at this time. Pt is to see GI Dr tomorrow and if he feels they are needed at visit this may change. Advised pt if anything does worsen to call office or go to ER if office not open. Pt Thanks abstract writer and voices understanding. documented in this encounter Plan of Treatment Upcoming Encounters Date Type Department Care Team (Late st Contact Info) Description 04/20/2025 3:00 PM EDT Office Visit [facility] [address] [facility] 120 [place] [address] Sonny Rodriguez DPM [address] [address] 05/04/2025 2:50 PM EDT Office Visit [facility] [address] [place] [address] [place] [address] Sonny Rodriguez DPM [address] [address] documented as of this encounter Visit Diagnoses Diagnosis Moderate episode of recurrent major depressive disorder (HCC)- Primary Jejunostomy site infection (HCC) documented in this encounter Additional Health Concerns Assessment Noted Time PHQ-9 Depression Total Score: 18 024 9:42 AM EDT documented as of this encounter Care Teams Caustic Plant Worker Relationship Specialty Start Date End Date Shlomo Hu MD [address] [place] [address] [place] [address] PCP - General Internal Medicine 02/15/23 Jess Marsh LPN 112 [facility] 110 [place] [address] 12/06/24 Esthela Tesfaye, KIRA [address] [place] [address] Resident Associate Family Medicine 02/03/25 documented as of this encounter
--- OUTSIDE RECORDS SUMMARY | 2025-04-09 11:51 | XMS_ITS | Encounter Summary ---
Author Organization [facility] Address [address] [place] [address] Care Team Providers Care Pre Sales Network Engineer Name Role Phone Jacob Sharp Unavailable Rasheeda Newton RD Unavailable [phone] Unavailable [phone] Fritz HENDERSON MD, Shlomo B Primary Care Provider [phone] Yuan Miller MD, PhD Unavailable [phone] Source Comments In the event this information is protected by the Federal Confidentiality of Alcohol and Drug AbusePatient Records regulations: The Federal rules restrict any use of the information to criminally investigate or prosecute any alcohol or drug abuse patient.[facility] Reason for Visit * Reason Comments Orders Encounter Details Date Type Department Care Team (Late st Contact Info) Description 12/14/2024 Telephone Rheumatology [address] [address] [place] [address] [place] [address] Orders Social History Tobacco Use Types Packs/Day Years Used Date Smoking Tobacco: Never Smokeless Tobacco: Never Alcohol Use Standard Drinks/Week Comments Not Currently 0 (1 standard drink = 0.6 oz pur e alcohol) [facility] Utilities Answer Date Recorded In [...] time in the past [address] [facility], were you homeless or living in a detention (including now)? No 10/18/2024 Area Deprivation Index Answer Date Reagan rded National Score (1-100), lower number is lower ri sk 63 03/05/2023 State Score (1-10), lower number is lower risk 4 03/05/2023 Data from: https://www.neighborhoodatlas.[facility]/. Last address used for calculation [address] 03/05/2023 Comments No [...] file Travel History Travel Start Travel End [place] 03/18/2025 03/26/2025 documented as of this [...] PM EDT Faxed 12/14 lab orders to [facility] at [phone]. Received fax confirmation. * Telephone Encounter - Nola Muñoz - 12/14/2024 9:57 AM EDT Faxed 12/14 lab and x-ray orders to [facility] at [phone]. Received fax confirmation. documented in this encounter Plan of Treatment Upcoming Encounters Date Type Department Care Team (Latest Contact Info) Description 04/10/2025 10:00 AM EDT Hospital Encounter Admitting 9500 [place] [address] Yuan Miller MD, PhD [address] [phone] Nausea and vomiting, unspecified vomiting type [R11.2], H/O bariatric surgery [Z98.84], Jejunostomy tube fell out [T85.528A] 04/10/2025 10:00 AM EDT - 04/10/2025 12:00 PM EDT Surgery Admitting [address]00 [place] [address] Yuan Miller MD, PhD [address] [phone] LAPAROSCOPIC JEJUNOSTOMY 04/19/2025 11:00 AM EDT [facility] Neurological Baptist [address] [place] [address] Joann Loera APRN.BALER 9500 [place] [address] Cognitive movement issues 04/21/2025 8:30 AM EDT [facility] Nutrition Therapy [address] [address] [place] [address] f/u TF forula tolerance and hydration 05/18/2025 9:00 AM EDT [facility] General Surgery [address] [place] [id number] Michael Mora PA-C [address] [place] [phone] f/u with michael mora in 2 wks 05/29/2025 9:00 AM EDT [facility] Gastroenterology [address] [address] Johanna Martinez MD [facility] [address] [phone] 3 month follow up 06/28/2025 10:00 AM EDT [facility] Neurology Pain [address] [place] [phone] [place] [address] [place] [address] Follow up for pain Scheduled Procedures Name Priority Associated Diagnoses Date/Ti me LAPAROSCOPIC JEJUNOSTOMY Nausea and vomiting, unspecified vomiting type H/O bariatric surgery Jejunostomy tube fell out 04/10/2025 10:00 AM EDT documented as of this encounter Visit Diagnoses Not on filedocumented in this encounter Care Teams Pre Sales Network Engineer Relationship Specialty Start Date End Date Shlomo Hu II, MD 112 [facility] 110 [place] [address] PCP - General Internal Medicine 10/06/23 Jacob Sharp [address] [place] [address] Referring 04/30/[address] [place] [address] Registered Dietitian Nutrition 06/24/[address] [place] [address] Registered Dietitian Nutrition 08/27/23 Yuan Miller MD, PhD [address]00 [place] [address] Surgeon General Surgery 02/03/24 documented as of this encounter
--- OUTSIDE RECORDS SUMMARY | 2025-04-09 11:51 | XMS_ITS | Encounter Summary ---
Author Organization [facility] Address [address] [place] [address] Care Team Providers Care Topstitcher Zigzag Name Role Phone Jacob Sharp Unavailable Rasheeda Newton RD Unavailable [phone] Unavailable [phone] Fritz HENDERSON MD, Shlomo B Primary Care Provider [phone] Yuan Miller MD, PhD Unavailable [phone] Source Comments In the event this information is protected by the Federal Confidentiality of Alcohol and Drug AbusePatient Records regulations: The Federal rules restrict any use of the information to criminally investigate or prosecute any alcohol or drug abuse patient.[facility] Encounter Details Date Type Department Care Team (Late st Contact Info) Description 11/17/2024 Patient Msg Pain Management [address] [place] [address] Provider, Ccf Social History Tobacco Use Types Packs/Day Years Used Date Smoking Tobacco: Never Smokeless Tobacco: Never Alcohol Use Standard Drinks/Week Comments Not Currently 0 (1 standard drink = 0.6 oz pur e alcohol) [facility] Utilities Answer Date Recorded In the past 12 months has e Skin [employer], gas, oil, or water company threatened to [...] Data from: https://www.neighborhoodatlas.medicine.[facility]/. Last address used for calculation [address] [...] 10:00 AM EDT Hospital Encounter Admitting [address]00 [place] [address] Yuan Miller MD, PhD [address] [place] [address] [phone] Nausea and vomiting, unspecified vomiting type [R11.2], H/O bariatric surgery [Z98.84], Jejunostomy tube fell out [T85.528A] 04/10/2025 10:00 AM EDT - 04/10/2025 12:00 PM EDT Surgery Admitting [address]00 [place] [address] Yuan Miller MD, PhD [address] [phone] LAPAROSCOPIC JEJUNOSTOMY 04/19/2025 11:00 AM EDT [facility] Neurological Baptist [address] [place] [address] Joann Loera APRN.ACCOUNTING FILE CLERK [address] [phone] Cognitive movement issues 04/21/2025 8:30 AM EDT [facility] Nutrition Therapy [address] [address] Tiffany Banks, RD [address]00 [place] [address] f/u TF forula tolerance and hydration 05/18/2025 9:00 AM EDT [facility] General Surgery 9299 [place] [address] Michael Mora PA-C 9500 [place] [address] f/u with michael mora in 2 wks 05/29/2025 9:00 AM EDT [facility] Gastroenterology [address] [address] Johanna Martinez MD [facility] [address] [place], [place] [phone] 3 month follow up 06/28/2025 10:00 AM EDT [facility] Neurology Pain [address] [place] [address] [place] [address] [place] [address] Follow up for pain Scheduled Procedures Name Priority Associated Diagnoses Date/Ti me LAPAROSCOPIC JEJUNOSTOMY Nausea and vomiting, unspecified vomiting type H/O bariatric surgery Jejunostomy tube fell out 04/10/2025 10:00 AM EDT documented as of this encounter Visit Diagnoses Not on filedocumented in this encounter Care Teams Topstitcher Zigzag Relationship Specialty Start Date End Date Shlomo Hu II, MD 112 [facility] 110 [place] [address] PCP - General Internal Medicine 10/06/23 Jacob Sharp [address] [phone] Referring 04/30/[address] [place] [phone] Registered Dietitian Nutrition 06/24/[address] [place] [address] Registered Dietitian Nutrition 08/27/23 Yuan Miller MD, PhD 9500 [place] [address] Surgeon General Surgery 02/03/24 documented as of this encounter
--- OUTSIDE RECORDS SUMMARY | 2025-04-09 11:51 | XMS_ITS | Encounter Summary ---
Author Organization [facility] Address [address] [place] [address] Care Team Providers Care Supervisor Grinding Name Role Phone Jacob Sharp Unavailable Rasheeda Newton RD Unavailable [phone] Unavailable [phone] Fritz HENDERSON MD, Shlomo B Primary Care Provider [phone] Yuan Miller MD, PhD Unavailable [phone] Source Comments In the event this information is protected by the Federal Confidentiality of Alcohol and Drug AbusePatient Records regulations: The Federal rules restrict any use of the information to criminally investigate or prosecute any alcohol or drug abuse patient.[facility] Encounter Details Date Type Department Care Team (Late st Contact Info) Description 12/18/2023 Patient Msg General Surgery [address] [id number] Yenny Cast RN Sooner Surgery Date Social [...] slept in a snf (including now)? No 08/10/2023 Area Deprivation Index Answer Date Reagan rded National Score (1-100), lower number is lower ri sk 63 03/05/2023 State Score (1-10), lower number is lower risk 4 03/05/2023 Data from: https://www.neighborhoodatlas.medicine.[facility].edu/. 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 Not on file Not on file Travel History Travel Start Travel End [place] 03/18/2025 03/26/2025 documented as of this encounter [...] 04/10/2025 10:00 AM EDT Hospital Encounter Admitting [facility] [place] [address] Yuan Miller MD, PhD [address] [place] [address] Nausea and vomiting, unspecified vomiting type [R11.2], H/O bariatric surgery [Z98.84], Jejunostomy tube fell out [T85.528A] 04/10/2025 10:00 AM EDT - 04/10/2025 12:00 PM EDT Surgery Admitting [address] [place] [address] Yuan Miller MD, PhD [address] [place] [address] LAPAROSCOPIC JEJUNOSTOMY 04/19/2025 11:00 AM EDT [facility] Neurological Islam [address] [place] [address] Joann Loera APRN.PURIFICATION OPERATOR [address] [id number] Cognitive movement issues 04/21/2025 8:30 AM EDT [facility] Nutrition Therapy [address] [phone] Tiffany Banks, RD [address] 1940395 f/u TF forula tolerance and hydration 05/18/2025 9:00 AM EDT [facility] General Surgery [address] [phone] Michael Mora PA-C [address] 1940395 f/u with michael mora in 2 wks 05/29/2025 9:00 AM EDT [facility] Gastroenterology [address] [address] Johanna Martinez MD [facility] [address] [place], [place] [address] 3 month follow up 06/28/2025 10:00 AM EDT [facility] Neurology Pain [address] [place] [address] [place] [address] [place] [address] Follow up for pain Scheduled Procedures Name [...] as of this encounter Care Teams Supervisor Grinding Relationship Specialty Start Date End Date Shlomo uH II, MD [address] [facility] 110 [place] [address] PCP - General Internal Medicine 10/06/23 Jacob Sharp [address] [place] [address] Referring 04/30/[address] [place] [phone] Registered Dietitian Nutrition 06/24/[address] [place] [address] Registered Dietitian Nutrition 08/27/23 Yuan Miller MD, PhD [address] [place], [place] [phone] Surgeon General Surgery 02/03/24 documented as of this encounter
--- OUTSIDE RECORDS SUMMARY | 2025-04-09 11:51 | XMS_ITS | Encounter Summary ---
Author Organization [facility] Address [address] [place] [address] Care Team Providers Care Electronic Engraver Name Role Phone Jacob Sharp Unavailable Aman Rasheeda TRUONG Unavailable [phone] Unavailable [phone] Fritz HENDERSON MD, Shlomo Momin Primary Care Provider [phone] Yuan Miller MD, PhD Unavailable [phone] Source Comments In the event this information is protected by the Federal Confidentiality of Alcohol and Drug AbusePatient Records regulations: The Federal rules restrict any use of the information to criminally investigate or prosecute any alcohol or drug abuse patient.[facility] Encounter Details Date Type Department Care Team (Late st Contact Info) Description 01/08/2024 [place] [address] Provider, [facility] Actionable Imaging Result Notification Patient [...] file Travel History Travel Start Travel End [place] 03/18/2025 03/26/2025 documented as of this encounter [...] 10:00 AM EDT Hospital Encounter Admitting [address] [place] [address] Yuan Miller MD, PhD [address] [place] [address] Nausea and vomiting, unspecified vomiting type [R11.2], H/O bariatric surgery [Z98.84], Jejunostomy tube fell out [T85.528A] 04/10/2025 10:00 AM EDT - 04/10/2025 12:00 PM EDT Surgery Admitting [address] [place] [address] Yuan Miller MD, PhD [address] [place] [address] LAPAROSCOPIC JEJUNOSTOMY 04/19/2025 11:00 AM EDT [facility] Neurological Amish [address] [phone] Joann Loera APRN.SOAKING PIT OPERATOR [address] [place] [address] Cognitive movement issues 04/21/2025 8:30 AM EDT [facility] Nutrition Therapy [address] [phone] Tiffany Banks, RD [address]00 [place] [address] f/u TF forula tolerance and hydration 05/18/2025 9:00 AM EDT [facility] General Surgery [address] [phone] Michael Mora PA-C [address]00 [place] [address] f/u with michael mora in 2 wks 05/29/2025 9:00 AM EDT [facility] Gastroenterology [address] 1976306 Johanna Martinez MD [facility] [address] [phone] 3 month follow up 06/28/2025 10:00 AM EDT [facility] Neurology Pain [address] [phone] [place] [address] [address] [phone] Follow up for pain Scheduled Procedures Name [...] documented as of this encounter Care Teams Electronic Engraver Relationship Specialty Start Date End Date Shlomo Hu II, MD [address] [facility] 110 [place] [address] PCP - General Internal Medicine 10/06/23 Jacob Sharp [address] [place] [address] Referring 04/30/[address] [place] [phone] Registered Dietitian Nutrition 06/24/[address] [place] [address] Registered Dietitian Nutrition 08/27/23 Yuan Miller MD, PhD [facility]0 [place] [address] Surgeon General Surgery 02/03/24 documented as of this encounter
--- OUTSIDE RECORDS SUMMARY | 2025-04-09 11:51 | XMS_ITS | Encounter Summary ---
Author Organization [facility] Address [address] [facility] [facility] [place] [address] Care Team Providers Care Export Specialist Name Role Phone Shlomo Hu MD Primary Care Provider [phone] Claribel Scott RN Unavailable [phone] Jess Marsh FOOD TRADES ASSISTANTS Unavailable Esthela Tesfaye BEHAVIORAL PEDIATRICIAN Unavailable [phone] Encounter Details Date Type Department Care Team (Late st Contact Info) Description 11/10/2024 Abstract [facility] [place] [facility] [address] [facility] 110 [place] [address] Shlomo Hu MD 112 [facility] 110 [place] [address] Social History Tobacco Use Types Packs/Day Years [...] How often do you attend chur or samaritan services? 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 Not [...] CI PODIATRY [address] [place] 120 [place] [id number] Sonny Rodriguez DPM [address] [address] 05/04/2025 2:50 PM EDT Office Visit [facility] [address] [facility] 120 [place] [address] Sonny Rodriguez DPLudmila [address] [address] documented as of this encounter Visit Diagnoses Not on filedocumented in this encounter Additional Health Concerns Assessment Noted Time PHQ-9 Depression Total Score: 18 024 9:42 AM EDT documented as of this encounter Care Teams Export Specialist Relationship Specialty Start Date End Date Shlomo Hu MD [address] [facility] 110 [place] [address] PCP - General Internal Medicine 02/15/23 Claribel Scott RN [address] [place] [address] Licensed Practical Nurse Family Medicine 10/21/24 12/06/24 Jess Marsh LPN [address] [place] 110 [place] [address] 12/06/24 Esthela Tesfaye, KIRA [address] [place] [address] [facility] Family Medicine 02/03/25 documented as of this encounter
--- OUTSIDE RECORDS SUMMARY | 2025-04-09 11:51 | XMS_ITS | Encounter Summary ---
Author Organization [facility] Address [address] [place] [address] Care Team Providers Care Yarn Washer Name Role Phone Jacob Sharp Unavailable Rasheeda Newton RD Unavailable [phone] Unavailable [phone] Fritz HENDERSON MD, Shlomo Momin Primary Care Provider [phone] Yuan Miller MD, PhD Unavailable [phone] Source Comments In the event this information is protected by the Federal Confidentiality of Alcohol and Drug AbusePatient Records regulations: The Federal rules restrict any use of the information to criminally investigate or prosecute any alcohol or drug abuse patient.[facility] Encounter Details Date Type Department Care Team (Late st Contact Info) Description 11/17/2024 Get Medical Advice Pain Management [address] [place], [place] [phone] Johann Echeverria MD [address] [place], [place] [phone] Medicine Social History Tobacco Use Types Packs/Day Years Used Date Smoking Tobacco: Never Smokeless Tobacco: Never Alcohol Use Standard Drinks/Week Comments Not Currently 0 (1 standard drink = 0.6 oz pur e alcohol) [facility] Utilities Answer Date Recorded In the [...] in the past 12 m [facility], were you homeless or living in a care home (including now)? No 10/18/2024 Area Deprivation Index Answer Date Reagan rded National Score (1-100), lower number is lower ri sk 63 03/05/2023 State Score (1-10), lower number is lower risk 4 03/05/2023 Data from: https://www.neighborhoodatlas.medicine.[facility]/. Last address used for calculation [address] [...] file Travel History Travel Start Travel End [place] 03/18/2025 03/26/2025 documented as of this encounter [...] 10:00 AM EDT Hospital Encounter Admitting [address] [phone] Yuan Miller MD, PhD [address] [phone] Nausea and vomiting, unspecified vomiting type [R11.2], H/O bariatric surgery [Z98.84], Jejunostomy tube fell out [T85.528A] 04/10/2025 10:00 AM EDT - 04/10/2025 12:00 PM EDT Surgery Admitting [address] [phone] Yuan Miller MD, PhD [address] [phone] LAPAROSCOPIC JEJUNOSTOMY 04/19/2025 11:00 AM EDT [facility] Neurological Taoism [address] [place], [place] [phone] Joann Loera APRN.TRANSITIONAL NURSE [address] [place] [address] Cognitive movement issues 04/21/2025 8:30 AM EDT [facility] Nutrition Therapy [address] [address] Tiffany Banks, RD 9500 [place] [address] f/u TF forula tolerance and hydration 05/18/2025 9:00 AM EDT [facility] General Surgery [address] [phone] Michael Mora PA-C [address] [place] [phone] f/u with michael mora in 2 wks 05/29/2025 9:00 AM EDT [facility] Gastroenterology [address] [place], [place] [phone] Johanna Martinez MD [facility] [address] 8096206 3 month follow up 06/28/2025 10:00 AM EDT [facility] Neurology Pain [address] [place] [phone] [place] [address] [address] [phone] Follow up for pain Scheduled Procedures Name Priority Associated Diagnoses Date/Ti me LAPAROSCOPIC JEJUNOSTOMY Nausea and vomiting, unspecified vomiting type H/O bariatric surgery Jejunostomy tube fell out 04/10/2025 10:00 AM EDT documented as of this encounter Visit Diagnoses Not on filedocumented in this encounter Care Teams Yarn Washer Relationship Specialty Start Date End Date Shlomo Hu II, MD 112 [facility] 110 [place] [address] PCP - General Internal Medicine 10/06/23 Jacob Sharp [address] [address] [phone] Referring 04/30/[address] [place] [phone] Registered Dietitian Nutrition 06/24/[address] [place] [phone] Registered Dietitian Nutrition 08/27/23 Yuan Miller MD, PhD [address] [phone] Surgeon General Surgery 02/03/24 documented as of this encounter
--- OUTSIDE RECORDS SUMMARY | 2025-04-09 11:51 | XMS_ITS | Encounter Summary ---
Author Organization [facility] Address [address] [facility] [place] [address] Care Team Providers Care Farmworker Brooder Farm Name Role Phone Shlomo Hu MD Primary Care Provider [phone] Claribel Scott RN Unavailable [phone] Jess Marsh CONTENT PUBLISHER Unavailable Esthela Tesfaye FRONT END ASSISTANT Unavailable [phone] Encounter Details Date Type Department Care Team (Late st Contact Info) Description 11/04/2024 Abstract [facility] [place] [facility] [address] [facility] 110 [place] [address] Shlomo Hu MD 112 [facility] 110 [place] [address] Social History Tobacco Use Types Packs/Day Years [...] How often do you attend chur or presybeterian services? 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 Not on file Not on file documented as of this encounter Plan of Treatment Upcoming Encounters Date Type Department Care Team (Late st Contact Info) Description 04/20/2025 3:00 PM EDT Office Visit [facility] [address] [place] 120 [place] [address] Sonny Rodriguez, DPM 3006 [facility] 5 [place] [address] 05/04/2025 2:50 PM EDT Office Visit [facility] [address] [place] 120 [place] [address] Sonny Rodriguez, DPM [address] [address] documented as of this encounter Visit Diagnoses Not on filedocumented in this encounter Additional Health Concerns Assessment Noted Time PHQ-9 Depression Total Score: 18 024 9:42 AM EDT documented as of this encounter Care Teams Farmworker Brooder Farm Relationship Specialty Start Date End Date Shlomo Hu MD [address] [facility] 110 [place] [address] PCP - General Internal Medicine 02/15/23 Claribel Scott, RN 1472 [place] [address] Licensed Practical Nurse Family Medicine 10/21/24 12/06/24 Jess Marsh LPN [address] [facility] 110 [place] [address] 12/06/24 Esthela Tesfaye LSW 1479 [place] [address] Superintendent [employer] Family Medicine 02/03/25 documented as of this encounter
--- OUTSIDE RECORDS SUMMARY | 2025-04-09 11:51 | XMS_ITS | Encounter Summary ---
Author Organization [facility] Address [address] [place] [address] Care Team Providers Care Bottomer Operator Name Role Phone Jacob Sharp Unavailable Rasheeda Newton RD Unavailable [phone] Unavailable [phone] Fritz HENDERSON MD, Shlomo Momin Primary Care Provider [phone] Yuan Miller MD, PhD Unavailable [phone] Source Comments In the event this information is protected by the Federal Confidentiality of Alcohol and Drug AbusePatient Records regulations: The Federal rules restrict any use of the information to criminally investigate or prosecute any alcohol or drug abuse patient.[facility] Encounter Details Date Type Department Care Team (Late st Contact Info) Description 12/14/2024 Patient Msg Rheumatology [address] [phone] Provider, [facility] Lab and X-ray Orders Social History Tobacco Use Types Packs/Day Years Used Date Smoking Tobacco: Never Smokeless Tobacco: Never Alcohol Use Standard Drinks/Week Comments Not Currently 0 (1 standard drink = 0.6 oz pur e alcohol) [facility] Utilities Answer Date Recorded In the past 12 months has th e electric, gas, oil, or water [employer] threatened to shut off services in your [...] risk 4 03/05/2023 Data from: https://www.neighborhoodatlas.medicine.[facility]/. Last address used for calculation [address] [address] 03/05/2023 Comments [...] file Travel History Travel Start Travel End [place] 03/18/2025 03/26/2025 documented as of this encounter [...] 10:00 AM EDT Hospital Encounter Admitting 9500 [place] [address] Yuan Miller MD, PhD [address] [phone] Nausea and vomiting, unspecified vomiting type [R11.2], H/O bariatric surgery [Z98.84], Jejunostomy tube fell out [T85.528A] 04/10/2025 10:00 AM EDT - 04/10/2025 12:00 PM EDT Surgery Admitting [address] [phone] Yuan Miller MD, PhD [address] [phone] LAPAROSCOPIC JEJUNOSTOMY 04/19/2025 11:00 AM EDT [facility] Neurological Scientology [address] [place] [phone] Joann Loera APRN.CHEF TEACHER [address] [place] [address] [phone] Cognitive movement issues 04/21/2025 8:30 AM EDT [facility] Nutrition Therapy [address] [address] Tiffany Banks, RD 9500 [place] [address] f/u TF forula tolerance and hydration 05/18/2025 9:00 AM EDT [facility] General Surgery 9299 [place] [address] Michael Mora PA-C 9500 [place] [address] f/u with michael mora in 2 wks 05/29/2025 9:00 AM EDT [facility] Gastroenterology [address] [phone] Johanna Martinez MD [facility] [address] [place] [address] 3 month follow up 06/28/2025 10:00 AM EDT [facility] Neurology Pain [address] [place] [address] [phone] Quique WilmaDO [address] [place] [address] Follow up for pain Scheduled Procedures Name Priority Associated Diagnoses Date/Ti me LAPAROSCOPIC JEJUNOSTOMY Nausea and vomiting, unspecified vomiting type H/O bariatric surgery Jejunostomy tube fell out 04/10/2025 10:00 AM EDT documented as of this encounter Visit Diagnoses Not on filedocumented in this encounter Care Teams Bottomer Operator Relationship Specialty Start Date End Date Shlomo Hu II, MD [address] [place] [address] 110 [place] [address] PCP - General Internal Medicine 10/06/23 Jacob Sharp [address] [place] [phone] Referring 04/30/[address] [place] [phone] Registered Dietitian Nutrition 06/24/[address] [place] [phone] Registered Dietitian Nutrition 08/27/23 Yuan Miller MD, PhD [address] [place] [address] Surgeon General Surgery 02/03/24 documented as of this encounter
--- OUTSIDE RECORDS SUMMARY | 2025-04-09 11:51 | XMS_ITS | Encounter Summary ---
Author Organization [facility] Address [address] [place] [address] Care Team Providers Care Range Mechanic Name Role Phone Joseph Sean Mona GALVEZ Primary Care Provider [phone] Jacob Sharp Unavailable Rasheeda Newton RD Unavailable [phone] Unavailable [phone] Fritz HENDERSON MD, Shlomo B Primary Care Provider [phone] Yuan Miller MD, PhD Unavailable [phone] Source Comments In the event this information is protected by the Federal Confidentiality of Alcohol and Drug AbusePatient Records regulations: The Federal rules restrict any use of the information to criminally investigate or prosecute any alcohol or drug abuse patient.[facility] Encounter Details Date Type Department Care Team (Late st Contact Info) Description 05/30/2020 Patient Msg Plastic Surgery [address] [place], [place] [phone] [place] [address] [place], [place] [phone] RE: Request an Appointment Social History Tobacco [...] file Travel History Travel Start Travel End [place] 03/18/2025 03/26/2025 COVID-19 Exposure Response Date Recorded [...] of Assessment Author No 05/01/2014 10:10 AM TRENAT Li Stanley LPN * Because of a physical, mental, [...] 10:00 AM EDT Hospital Encounter Admitting 9500 [place] [address] Yuan Miller MD, PhD [address] [place] [phone] Nausea and vomiting, unspecified vomiting type [R11.2], H/O bariatric surgery [Z98.84], Jejunostomy tube fell out [T85.528A] 04/10/2025 10:00 AM EDT - 04/10/2025 12:00 PM EDT Surgery Admitting [address]00 [place] [address] Yuan Miller MD, PhD [address] [place] [phone] LAPAROSCOPIC JEJUNOSTOMY 04/19/2025 11:00 AM EDT [facility] Neurological Worship 9300 [place] [address] Joann Loera APRN.COMPENSATION DIRECTOR [address] [place] [phone] Cognitive movement issues 04/21/2025 8:30 AM EDT [facility] Nutrition Therapy [address] [address] Tiffany Banks, RD 9500 [place] [address] f/u TF forula tolerance and hydration 05/18/2025 9:00 AM EDT [facility] General Surgery 9300 [place] [address] Michael Mora PA-C 9500 [place] [address] f/u with michael mora in 2 wks 05/29/2025 9:00 AM EDT [facility] Gastroenterology [address] [address] Johanna Martinez MD [facility] [address] [address] 3 month follow up 06/28/2025 10:00 AM EDT [facility] Neurology Pain [address] [place] [address] [place] [address] [place] [address] Follow up for pain Scheduled Procedures Name [...] 01/04/2024 5:37 PM EDT Respiratory Rule-Out 01/04/2024 01/04/202401/03/2 024 5:37 PM EDT COVID-19 Rule-Out 04/12/2024 04/12/2024 04/12/2024 3:56 PM EDT COVID-19 Confirmed Comment:Anticipate 10 day isolation 04/12/2024 04/18/202404/14 8:51 PM EDT COVID-19 Rule-Out 04/18/2024 04/18/2024 04/18/2024 2:28 PM EDT COVID-19 Rule-Out 07/29/2024 07/29/2024 07/29/2024 7:20 PM EST documented as of this encounter Care Teams Range Mechanic Relationship Specialty [place] [address] [place] [address] PCP - General Family Medicine 07/09/12 10/05/23 Shlomo Hu II, MD [address] [address] PCP - General Internal Medicine 10/06/23 Jacob Sharp [address] [place] [address] Referring 04/30/[address] [place] [phone] Registered Dietitian Nutrition 06/24/[address]00 [place] [address] Registered Dietitian Nutrition 08/27/23 Yuan Miller MD, PhD [address] [place], [place] [phone] Surgeon General Surgery 02/03/24 documented as of this encounter
--- OUTSIDE RECORDS SUMMARY | 2025-04-09 11:51 | XMS_ITS | Encounter Summary ---
Author Organization [facility] Address [address] [place] [address] Care Team Providers Care Student Ministries Director Name Role Phone Shlomo Hu MD Primary Care Provider [phone] Jess Marsh LPN Unavailable Esthela Tesfaye POOL HAND Unavailable [phone] Encounter Details Date Type Department Care Team ([facility] st Contact Info) Description 02/02/2025 Telephone [facility] 112 [facility] 120 [place] [address] Sonny Rodriguez, DPM 3004 [facility] 5 [place] [address] Social History Tobacco Use Types Packs/Day Years [...] Recorded Patient Health Questionnaire-2 Score 0 01/05/2025 [facility] of Occupat [...] 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 Patient has met 500 of 500 individual deductible and has met 3000 oop deductible. Codes [id number] do not require prior authorization. 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 NO WEIGHT BEARING STATUS-- partial weight-bearing hydrocodone documented in this encounter Plan of Treatment Upcoming Encounters Date Type Department Care Team (Late st Contact Info) Description 04/20/2025 3:00 PM EDT Office Visit [facility] [address] [phone] Sonny Rodriguez DPM [address] [address] 05/04/2025 2:50 PM EDT Office Visit [facility] 112 [facility] 120 [place] [phone] Sonny Rodriguez DPM [address] [address] documented as of this encounter Visit Diagnoses Diagnosis Metatarsal deformity, left- Primary Acquired deformity of left toe documented in this encounter Additional Health Concerns Assessment Noted Time PHQ-9 Depression Total Score: 18 024 9:42 AM EDT documented as of this encounter Care Teams Student Ministries Director Relationship Specialty Start Date End Date Shlomo Hu MD 112 [facility] 110 [place] [address] PCP - General Internal Medicine 02/15/23 Jess Marsh LPN 112 [facility] 110 [place] [address] 12/06/24 Esthela Tesfaye, KIRA [address] [place] [address] Geophysical Laboratory Supervisor Family Medicine 02/03/25 documented as of this encounter
--- OUTSIDE RECORDS SUMMARY | 2025-04-09 11:51 | XMS_ITS | Encounter Summary ---
Author Organization [facility] Address [address] [place] [address] Care Team Providers Care Certified Veterinary Technician Name Role Phone Shlomo Hu MD Primary Care Provider [phone] Claribel Scott RN Unavailable [phone] Jess Marsh MUSEUM EXHIBIT TECHNICIAN Unavailable Esthela Tesfaye CENTRAL OFFICE SUPERVISOR Unavailable [phone] Encounter Details Date Type Department Care Team (Late st Contact Info) Description 11/15/2024 Abstract [facility] [place] [facility] [address] [facility] 110 [place] [address] Shlomo Hu MD 112 [facility] 110 [place] [address] Social History Tobacco Use Types Packs/Day Years [...] How often do you attend chur or hoahaoism services? 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 Not on file Not on file documented as of this encounter Plan of Treatment Upcoming Encounters Date Type Department Care Team (Late st Contact Info) Description 04/20/2025 3:00 PM EDT Office Visit [facility] [address] [place] [address] [place] [address] Sonny Rodriguez, DPM 3006 [facility] 5 [place] [address] 05/04/2025 2:50 PM EDT Office Visit [facility] [address] [place] [address] [place] [address] Sonny Rodriguez, DPM [address] [address] documented as of this encounter Visit Diagnoses Not on filedocumented in this encounter Additional Health Concerns Assessment Noted Time PHQ-9 Depression Total Score: 18 024 9:42 AM EDT documented as of this encounter Care Teams Certified Veterinary Technician Relationship Specialty Start Date End Date Shlomo Hu MD [address] [facility] 110 [place] [address] PCP - General Internal Medicine 02/15/23 Claribel Scott, RN [address] [place] [address] Licensed Practical Nurse Family Medicine 10/21/24 12/06/24 Jess Marsh LPN [address] [facility] 110 [place] [address] 12/06/24 Esthela Tesfaye LSW [address] [place] [address] Sheriff Officer Family Medicine 02/03/25 documented as of this encounter
--- OUTSIDE RECORDS SUMMARY | 2025-04-09 11:51 | XMS_ITS | Encounter Summary ---
Author Organization [facility] Address [address] [place] [address] Care Team Providers Care Dye Room Helper Name Role Phone Jacob Sharp Unavailable Rasheeda Newton RD Unavailable [phone] Unavailable [phone] Fritz HENDERSON MD, Shlomo B Primary Care Provider [phone] Yuan Miller MD, PhD Unavailable [phone] Source Comments In the event this [...] 12/04/2023 Get Medical Advice General Surgery 9300 [place] [address] Mark Cruz MD [address]128 [place] [address] Report Social History Tobacco Use [...] slept in a residential (including now)? No 08/10/2023 Area Deprivation Index Answer Date Reagan rded National Score (1-100), lower number is lower ri sk 63 03/05/2023 State Score (1-10), lower number is lower risk 4 03/05/2023 Data from: https://www.neighborhoodatlas.medicine.[facility].edu/. Last address used for calculation [...] file Travel History Travel Start Travel End [place] 03/18/2025 03/26/2025 documented as of this encounter [...] 04/10/2025 10:00 AM EDT Hospital Encounter Admitting [address] [place] [address] Yuan Miller MD, PhD [address] [place], [place] [phone] Nausea and vomiting, unspecified vomiting type [R11.2], H/O bariatric surgery [Z98.84], Jejunostomy tube fell out [T85.528A] 04/10/2025 10:00 AM EDT - 04/10/2025 12:00 PM EDT Surgery Admitting 9500 [place] [address] Yuan Miller MD, PhD [address] [place] [id number] LAPAROSCOPIC JEJUNOSTOMY 04/19/2025 11:00 AM EDT [facility] Neurological Jew [address] [place] [phone] Joann Loera APRN.CAREER AND TRANSITION TEACHER [address] [place] [phone] Cognitive movement issues 04/21/2025 8:30 AM EDT [facility] Nutrition Therapy [address] [place] [phone] Tiffany Banks, RD [address] [place] [id number] f/u TF forula tolerance and hydration 05/18/2025 9:00 AM EDT [facility] General Surgery [address] [place] 0909206 Michael Mora PA-C [address] [place] [phone] f/u with michael mora in 2 wks 05/29/2025 9:00 AM T [facility] Gastroenterology [address] [place] [phone] Johanna Martinez MD [facility] [address] [place], [place] [phone] 3 month follow up 06/28/2025 10:00 AM T [facility] Neurology Pain [address] [place] [phone] [place] [address] [place] [id number] Follow up for pain Scheduled Procedures Name [...] documented as of this encounter Care Teams Dye Room Helper Relationship Specialty Start Date End Date Shlmoo Hu II, MD [address] [facility] 110 [place] [address] PCP - General Internal Medicine 10/06/23 Jacob Sharp [address] [place] [phone] Referring 04/30/[address] [place] [phone] Registered Dietitian Nutrition 06/24/[address] [facility]0 [place] [address] Registered Dietitian Nutrition 08/27/23 Yuan Miller MD, PhD [address] [place] [address] Surgeon General Surgery 02/03/24 documented as of this encounter
--- OUTSIDE RECORDS SUMMARY | 2025-04-09 11:51 | XMS_ITS | Encounter Summary ---
Author Organization [facility] Address [address] [place] [address] Care Team Providers Care Cardiac Care Unit Nurse Name Role Phone Jacob Sharp Unavailable Rasheeda Newton RD Unavailable [phone] Unavailable [phone] Fritz HENDERSON MD, Shlomo B Primary Care Provider [phone] Yuan Miller MD, PhD Unavailable [phone] Source Comments In the event this information is protected by the Federal Confidentiality of Alcohol and Drug AbusePatient Records regulations: The Federal rules restrict any use of the information to criminally investigate or prosecute any alcohol or drug abuse patient.[facility] Encounter Details Date Type Department Care Team (Late st Contact Info) Description 12/02/2023 Patient Msg Gastroenterology [address] [place] [phone] Provider, Ccf Dr. Garnica office visit Social [...] slept in a usp (including now)? No 08/10/2023 Area Deprivation Index Answer Date Reagan rded National Score (1-100), lower number is lower ri sk 63 03/05/2023 State Score (1-10), lower number is lower risk 4 03/05/2023 Data from: https://www.neighborhoodatlas.medicine.[facility].edu/. Last address used for calculation [address] [...] Travel Start Travel End [place] 03/18/2025 03/26/2025 documented as of this encounter [...] 10:00 AM EDT Hospital Encounter Admitting 9500 [place] [address] Yuan Miller MD, PhD [address] [place] [address] Nausea and vomiting, unspecified vomiting type [R11.2], H/O bariatric surgery [Z98.84], Jejunostomy tube fell out [T85.528A] 04/10/2025 10:00 AM EDT - 04/10/2025 12:00 PM EDT Surgery Admitting 9500 [place] [address] Yuan Miller MD, PhD 9500 [place] [address] LAPAROSCOPIC JEJUNOSTOMY 04/19/2025 11:00 AM EDT [facility] Neurological [place] 9[address] [place] [address] Joann Loera APRN.RESOURCE PARAPROFESSIONAL 9500 [place] [address] Cognitive movement issues 04/21/2025 8:30 AM EDT [facility] Nutrition Therapy [address] [place] [phone] Tiffany Banks, RD [address] [place] [phone] f/u TF forula tolerance and hydration 05/18/2025 9:00 AM EDT [facility] General Surgery [address] [place] [phone] Michael Mora PA-C [address] [place] [phone] f/u with michael mora in 2 wks 05/29/2025 9:00 AM EDT [facility] Gastroenterology [address] [address] Johanna Martinez MD [facility] [address] [place], [place] [address] 3 month follow up 06/28/2025 10:00 AM EDT [facility] Neurology Pain 15[address] [place] [address] [place] [address] [place] [address] Follow up for pain Scheduled Procedures Name [...] documented as of this encounter Care Teams Cardiac Care Unit Nurse Relationship Specialty Start Date End Date Shlomo Hu II, MD [address] [facility] 110 [place] [address] PCP - General Internal Medicine 10/06/23 Jacob Sharp [address] [place] [address] Referring 04/30/[address] [place] [phone] Registered Dietitian Nutrition 06/24/[address] [facility]0 [place] [address] Registered Dietitian Nutrition 08/27/23 Yuan Miller MD, PhD 9500 [place] [address] Surgeon General Surgery 02/03/24 documented as of this encounter
--- OUTSIDE RECORDS SUMMARY | 2025-04-09 11:51 | XMS_ITS | Encounter Summary ---
Author Organization [facility] Address [address] [place] [address] Care Team Providers Care Granite Countertop Installer Name Role Phone Jacob Sharp Unavailable Aman Rasheeda TRUONG Unavailable [phone] Unavailable [phone] Fritz HENDERSON MD, Shlomo Momin Primary Care Provider [phone] Yuan Miller MD, PhD Unavailable [phone] Source Comments In the event this information is protected by the Federal Confidentiality of Alcohol and Drug AbusePatient Records regulations: The Federal rules restrict any use of the information to criminally investigate or prosecute any alcohol or drug abuse patient.[facility] Encounter Details Date Type Department Care Team (Late st Contact Info) Description 01/05/2024 Patient Msg [facility] [address] [place] [address] Provider, Ccf Important Instructions reminder regarding your [...] is lower risk 4 03/05/2023 Data from: https://www.neighborhoodatlas.medicine.[facility].edu/. Last address used for calculation [address] [...] 10:00 AM EDT Hospital Encounter Admitting [address] [place] [address] Yuan [place], PhD [address] [place] [address] Nausea and vomiting, unspecified vomiting type [R11.2], H/O bariatric surgery [Z98.84], Jejunostomy tube fell out [T85.528A] 04/10/2025 10:00 AM EDT - 04/10/2025 12:00 PM EDT Surgery Admitting 9500 [place] [address] Yuan Miller MD, PhD [address] [place] [phone] LAPAROSCOPIC JEJUNOSTOMY 04/19/2025 11:00 AM EDT [facility] Neurological Scientologist [address] [place] [phone] Joann Loera APRN.GAS COMPRESSOR TURBINE OPERATOR [address] [place] [phone] Cognitive movement issues 04/21/2025 8:30 AM EDT [facility] Nutrition Therapy [address] [place] [phone] Tiffany Banks, RD 9500 [place] [address] f/u TF forula tolerance and hydration 05/18/2025 9:00 AM EDT [facility] General Surgery [address] [place] [phone] Michael Mora PA-C 9500 [place] [address] f/u with michael mora in 2 wks 05/29/2025 9:00 AM T [facility] Gastroenterology 2048 [place] [address] Johanna Martinez MD [facility] [address] [place], [place] [address] 3 month follow up 06/28/2025 10:00 AM T [facility] Neurology Pain [address] [place] [phone] [place] [address] [place] [address] Follow up for pain Scheduled Procedures Name [...] documented as of this encounter Care Teams Granite Countertop Installer Relationship Specialty Start Date End Date Shlomo Hu II, MD [address] [facility] 110 [place] [address] PCP - General Internal Medicine 10/06/23 Jacob Sharp [address] [place] [phone] Referring 04/30/[address] [place] [address] Registered Dietitian Nutrition 06/24/[address] [place], [place] [phone] Registered Dietitian Nutrition 08/27/23 Yuan [place] PhD [address] [place] [address] Surgeon General Surgery 02/03/24 documented as of this encounter
--- OUTSIDE RECORDS SUMMARY | 2025-04-09 11:51 | XMS_ITS | Encounter Summary ---
Author Organization [facility] Address [address] [place] [address] Care Team Providers Care Apprentice Funeral Director Name Role Phone Jacob Sharp Unavailable Rasheeda Newton RD Unavailable [phone] Unavailable [phone] Fritz HENDERSON MD, Shlomo B Primary Care Provider [phone] Yuan Miller MD, PhD Unavailable [phone] Source Comments In the event this information is protected by the Federal Confidentiality of Alcohol and Drug AbusePatient Records regulations: The Federal rules restrict any use of the information to criminally investigate or prosecute any alcohol or drug abuse patient.[facility] Encounter Details Date Type Department Care Team (Late st Contact Info) Description 12/15/2023 Patient Msg Gastroenterology [address] [place] [address] Debi Abrams RN Prep instructions for 12/22/23 [...] is lower risk 4 03/05/2023 Data from: https://www.neighborhoodatlas.medicine.[facility].edu/. Last address used for calculation [address] [...] Travel History Travel Start Travel End [place] 03/18/2025 03/26/2025 documented as of this encounter [...] 04/10/2025 10:00 AM EDT Hospital Encounter Admitting [address] [place] [address] [place] [address] [place], [place] [address] Nausea and vomiting, unspecified vomiting type [R11.2], H/O bariatric surgery [Z98.84], Jejunostomy tube fell out [T85.528A] 04/10/2025 10:00 AM EDT - 04/10/2025 12:00 PM EDT Surgery Admitting [address] [place] [address] [place] [address] Yuan Miller MD, PhD [address] [place] [phone] LAPAROSCOPIC JEJUNOSTOMY 04/19/2025 11:00 AM EDT [facility] Neurological Evangelical [address] [place] [phone] Joann Loera APRN.SECONDARY HISTORY TEACHER [address] [place] [phone] Cognitive movement issues 04/21/2025 8:30 AM EDT [facility] Nutrition Therapy [address] [place] [phone] Tiffany Banks, RD 9500 [place] [address] f/u TF forula tolerance and hydration 05/18/2025 9:00 AM EDT [facility] General Surgery 93 [place] [address] Michael Mora PA-C 9500 [place] [address] f/u with michael mora in 2 wks 05/29/2025 9:00 AM EDT [facility] Gastroenterology 2048 [place] [address] [facility] [address] [place], [place] [phone] 3 month follow up 06/28/2025 10:00 AM EDT [facility] Neurology Pain [address] [place] [phone] [place] [address] [place] 1527195 Follow up for pain Scheduled Procedures Name [...] documented as of this encounter Care Teams Apprentice Funeral Director Relationship Specialty Start Date End Date Shlomo Hu II, MD [address] [facility] 110 [place] [address] PCP - General Internal Medicine 10/06/23 Jacob Sharp [address] [place] [phone] Referring 04/30/[address] [place] [phone] Registered Dietitian Nutrition 06/24/[address] 9500 [place] [address] Registered Dietitian Nutrition 08/27/23 Yuan Miller MD, PhD [address]00 [place], [place] [phone] Surgeon General Surgery 02/03/24 documented as of this encounter
--- OUTSIDE RECORDS SUMMARY | 2025-04-09 11:51 | XMS_ITS | Encounter Summary ---
Author Organization [facility] Address [address] [place] [address] Care Team Providers Care Pumper Gager Apprentice Name Role Phone Jacob Sharp Unavailable Rasheeda Newton RD Unavailable [phone] Unavailable [phone] Fritz HENDERSON MD, Shlomo Momin Primary Care Provider [phone] Yuan Miller MD, PhD Unavailable [phone] Source Comments In the event this information is protected by the Federal Confidentiality of Alcohol and Drug AbusePatient Records regulations: The Federal rules restrict any use of the information to criminally investigate or prosecute any alcohol or drug abuse patient.[facility] Encounter Details Date Type Department Care Team (Late st Contact Info) Description 12/15/2024 Patient Msg Gastroenterology [address] [place] [phone] Provider, [facility] medication patient assistance program Social History Tobacco Use Types Packs/Day Years Used Date Smoking Tobacco: Never Smokeless Tobacco: Never Alcohol Use Standard Drinks/Week Comments Not Currently 0 (1 standard drink = 0.6 oz pur e alcohol) [facility] Utilities Answer Date Recorded In the past 12 months has th e electric, gas, oil, or water [employer] threatened to shut off services in your [...] time in the past 12 [facility] or living in a chcf (including now)? No 10/18/2024 Area Deprivation Index Answer Date Reagan rded National Score (1-100), lower number is lower ri sk 63 03/05/2023 State Score (1-10), lower number is lower risk 4 03/05/2023 Data from: https://www.neighborhoodatlas.medicine.[facility]/. Last address used for calculation [...] file Travel History Travel Start Travel End [place] 03/18/2025 03/26/2025 documented as of this encounter [...] 10:00 AM EDT Hospital Encounter Admitting 9500 [place] [address] Yuan Miller MD, PhD [address] [place] [phone] Nausea and vomiting, unspecified vomiting type [R11.2], H/O bariatric surgery [Z98.84], Jejunostomy tube fell out [T85.528A] 04/10/2025 10:00 AM EDT - 04/10/2025 12:00 PM EDT Surgery Admitting [address] [place] [phone] Yuan Miller MD, PhD [address] [place] [phone] LAPAROSCOPIC JEJUNOSTOMY 04/19/2025 11:00 AM EDT [facility] Neurological Zoroastrianism [address] [place], [place] [phone] Joann Loera APRN.HAND DRAWER IN HELPER [address] [place] [phone] Cognitive movement issues 04/21/2025 8:30 AM EDT [facility] Nutrition Therapy [address] [address] Tiffany Banks, RD 9500 [place] [address] f/u TF forula tolerance and hydration 05/18/2025 9:00 AM EDT [facility] General Surgery 9299 [place] [address] Michael Mora PA-C 9500 [place] [address] f/u with michael mora in 2 wks 05/29/2025 9:00 AM EDT [facility] Gastroenterology [address] [address] Johanna Martinez MD [facility] [address] [place] [address] 3 month follow up 06/28/2025 10:00 AM EDT [facility] Neurology Pain [address] [place] [phone] Quique WilmaDO [address] [place], [place] [phone] Follow up for pain Scheduled Procedures Name Priority Associated Diagnoses Date/Ti me LAPAROSCOPIC JEJUNOSTOMY Nausea and vomiting, unspecified vomiting type H/O bariatric surgery Jejunostomy tube fell out 04/10/2025 10:00 AM EDT documented as of this encounter Visit Diagnoses Not on filedocumented in this encounter Care Teams Pumper Gager Apprentice Relationship Specialty Start Date End Date Shlomo Hu II, MD [address] [place] [address] 110 [place] [address] PCP - General Internal Medicine 10/06/23 Jacob Sharp [address] [place] [phone] Referring 04/30/[address] [place] [phone] Registered Dietitian Nutrition 06/24/[address] [place] [phone] Registered Dietitian Nutrition 08/27/23 Yuan Miller MD, PhD 9500 [place] [address] Surgeon General Surgery 02/03/24 documented as of this encounter
--- OUTSIDE RECORDS SUMMARY | 2025-04-09 11:51 | XMS_ITS | Encounter Summary ---
Author Organization [facility] Address [address] [facility] [place] [address] Care Team Providers Care Discotheque Dancer Name Role Phone Shlomo Hu MD Primary Care Provider [phone] Jess Marsh LPN Unavailable Esthela Tesfaye OUT OF TOWN COLLECTION CLERK Unavailable Encounter Details Date Type Department Care Team (Late st Contact Info) Description 02/14/2025 Abstract [facility] Medince [address] [facility] 110 [place] [address] Shlomo Hu MD [address] [facility] 110 [place] [address] Social History Tobacco Use Types Packs/Day Years [...] do you attend chur or faith services? 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 Not on file Not on file documented as of this encounter Plan of Treatment Upcoming Encounters Date Type Department Care Team (Late st Contact Info) Description 04/20/2025 3:00 PM EDT Office Visit [facility] [address] [facility] 120 [place] [address] Sonny Rodriguez, DPM 3006 [facility] 5 [place] [address] 05/04/2025 2:50 PM EDT Office Visit [facility] [address] [facility] 120 [place] [address] Sonny Rodriguez DPM [address] [address] documented as of this encounter Visit Diagnoses Not on filedocumented in this encounter Additional Health Concerns Assessment Noted Time PHQ-9 Depression Total Score: 18 024 9:42 AM EDT documented as of this encounter Care Teams Discotheque Dancer Relationship Specialty Start Date End Date Shlomo Hu MD [address] [facility] 110 [place] [address] PCP - General Internal Medicine 02/15/23 Jess Marsh LPN [address] [facility] 110 [place] [address] 12/06/24 Esthela Tesfaye, KIRA [address] [place] [address] Coding Team Lead Family Medicine 02/03/25 documented as of this encounter
--- OUTSIDE RECORDS SUMMARY | 2025-04-09 11:51 | XMS_ITS | Encounter Summary ---
Author Organization [facility] Address [address] [place] [address] Care Team Providers Care Secondary Spanish Teacher Name Role Phone Jacob Sharp Unavailable Rasheeda [place] RD Unavailable [phone] Unavailable [phone] Fritz HENDERSON MD, Shlomo B Primary Care Provider [phone] Yuan Miller MD, PhD Unavailable [phone] Source Comments In the event this information is protected by the Federal Confidentiality of Alcohol and Drug AbusePatient Records regulations: The Federal rules restrict any use of the information to criminally investigate or prosecute any alcohol or drug abuse patient.[facility] Encounter Details Date Type Department Care Team (Late st Contact Info) Description 01/15/2024 Patient Msg Pain Management [address] [place] [address] Mary Arthur, DIRECTOR [facility].RESIDENTIAL CAREGIVER [address] [address] [place] [address] Appointment Request Social History Tobacco [...] lower risk 4 03/05/2023 Data from: https://www.neighborhoodatlas.medicine.[facility].edu/. Last address used for [...] Travel Start Travel End [place] 03/18/2025 03/26/2025 documented as of this encounter [...] 04/10/2025 10:00 AM EDT Hospital Encounter Admitting [address] [place] [address] Yuan Miller MD, PhD [address] [place] [address] Nausea and vomiting, unspecified vomiting type [R11.2], H/O bariatric surgery [Z98.84], Jejunostomy tube fell out [T85.528A] 04/10/2025 10:00 AM EDT - 04/10/2025 12:00 PM EDT Surgery Admitting 9500 [place] [address] Yuan Miller MD, PhD 9500 [place] [address] LAPAROSCOPIC JEJUNOSTOMY 04/19/2025 11:00 AM EDT [facility] Neurological Orthodox [address] [phone] Joann Loera APRN.RESIDENTIAL CAREGIVER 9500 [place] [address] Cognitive movement issues 04/21/2025 8:30 AM EDT [facility] Nutrition Therapy [address] [phone] Tiffany Banks, RD [address] [place] [address] [id number] f/u TF forula tolerance and hydration 05/18/2025 9:00 AM EDT [facility] General Surgery [address] [id number] Michael Mora PA-C [address] [place] [address] [phone] f/u with michael mora in 2 wks 05/29/2025 9:00 AM T [facility] Gastroenterology [address] [phone] Johanna Martinez MD [facility] [address] [place], [place] [id number] 3 month follow up 06/28/2025 10:00 AM T [facility] Neurology Pain [address] [place] [address] [phone] [place] [address] [place] [address] [id number] Follow up for pain Scheduled Procedures Name [...] documented as of this encounter Care Teams Secondary Spanish Teacher Relationship Specialty Start Date End Date Shlomo Hu II, MD 112 [facility] 110 [place] [address] PCP - General Internal Medicine 10/06/23 Jacob Sharp [address] [place] [address] Referring 04/30/[address] [place] [phone] Registered Dietitian Nutrition 06/24/[address] [facility] [place] [phone] Registered Dietitian Nutrition 08/27/23 Yuan Miller MD, PhD [address] [place] [address] Surgeon General Surgery 02/03/24 documented as of this encounter
--- OUTSIDE RECORDS SUMMARY | 2025-04-09 11:51 | XMS_ITS | Encounter Summary ---
Author Organization [facility] Address [address] [place] [address] Care Team Providers Care Soda Fountain Clerk Name Role Phone Jacob Sharp Unavailable Rasheeda [place] RD Unavailable Tiffany Banks RD Unavailable [phone] Fritz HENDERSON MD, Shlomo Momin Primary Care Provider [phone] Yuan Miller MD, PhD Unavailable [phone] Source Comments In the event this information is protected by the Federal Confidentiality of Alcohol and Drug AbusePatient Records regulations: The Federal rules restrict any use of the information to criminally investigate or prosecute any alcohol or drug abuse patient.[facility] Encounter Details Date Type Department Care Team (Late st Contact Info) Description 01/15/2024 Patient Msg Gastroenterology [address] [phone] Provider, Ccf Medication information Social History Tobacco [...] hospital.edu/. 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 Not on file Not on file Travel History Travel Start Travel End [place] 03/18/2025 03/26/2025 documented as of this encounter [...] 10:00 AM EDT Hospital Encounter Admitting [address] [place] [address] Yuan Miller MD, PhD [address] [place] [address] Nausea and vomiting, unspecified vomiting type [R11.2], H/O bariatric surgery [Z98.84], Jejunostomy tube fell out [T85.528A] 04/10/2025 10:00 AM EDT - 04/10/2025 12:00 PM EDT Surgery Admitting [facility]0 [place] [address] Yuan Miller MD, PhD [address] [place] [phone] LAPAROSCOPIC JEJUNOSTOMY 04/19/2025 11:00 AM EDT [facility] Neurological Judaism 9300 [place] [address] Joann Loera APRN.BISCUIT FACTORY WORKER 9500 [place] [address] Cognitive movement issues 04/21/2025 8:30 AM EDT [facility] Nutrition Therapy [address] [phone] Tiffany Banks, RD [address] [place] [address] [phone] f/u TF forula tolerance and hydration 05/18/2025 9:00 AM EDT [facility] General Surgery [address] 4328006 Michael Mora PA-C [address] [place] [address] [phone] f/u with michael mora in 2 wks 05/29/2025 9:00 AM EDT [facility] Gastroenterology [address] [id number] Johanna Martinez MD [facility] [address] [phone] 3 month follow up 06/28/2025 10:00 AM EDT [facility] Neurology Pain [address] [place] [address] [phone] [place] [address] [address] [phone] Follow up for pain Scheduled Procedures Name [...] Confirmed Comment:Anticipate 10 day isolation 04/12/2024 04/18/2024 08/01/2024 8:51 PM EDT COVID-19 Rule-Out 04/18/2024 04/18/2024 04/18/2024 2:28 PM EDT COVID-19 Rule-Out 07/29/2024 07/29/2024 07/29/2024 7:20 PM EST documented as of this encounter Care Teams Soda Fountain Clerk Relationship Specialty Start Date End Date Shlomo Hu II, MD [address] [facility] 110 [place] [address] PCP - General Internal Medicine 10/06/23 Jacob Sharp [address] [place] [address] Referring 04/30/[address] [place] [address] Registered Dietitian Nutrition 06/24/[address] [facility]0 [place] [address] Registered Dietitian Nutrition 08/27/23 Yuan Miller MD, PhD [facility]0 [place] [address] Surgeon General Surgery 02/03/24 documented as of this encounter
--- OUTSIDE RECORDS SUMMARY | 2025-04-09 11:51 | XMS_ITS | Encounter Summary ---
Author Organization [facility] Address [address] [facility] [place] [address] Care Team Providers Care Supervisor Microfilm Duplicating Unit Name Role Phone Shlomo Hu MD Primary Care Provider [phone] Jess Marsh LPN Unavailable Esthela Tesfaye SUPERINTENDENT RADIO COMMUNICATIONS Unavailable [phone] Encounter Details Date Type Department Care Team (Late st Contact Info) Description 02/02/2025 Abstract [facility] Medince [address] [place] 110 [place] [address] Shlomo Hu MD 112 [place] [facility] 110 [place] [address] Social History Tobacco Use Types Packs/Day Years [...] do you attend chur or mormonism services? 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 Not on file Not on file documented as of this encounter Plan of Treatment Upcoming Encounters Date Type Department Care Team (Late st Contact Info) Description 04/20/2025 3:00 PM EDT Office Visit [facility] [address] [place] 120 [place] [address] Sonny Rodriguez, DPM 3006 [facility] 5 [place] [address] 05/04/2025 2:50 PM EDT Office Visit [facility] [address] [place] [address] [place] [address] Sonny Rodriguez DPM [address] [address] documented as of this encounter Visit Diagnoses Not on filedocumented in this encounter Additional Health Concerns Assessment Noted Time PHQ-9 Depression Total Score: 18 024 9:42 AM EDT documented as of this encounter Care Teams Supervisor Microfilm Duplicating Unit Relationship Specialty Start Date End Date Shlomo Hu MD [address] [facility] 110 [place] [address] PCP - General Internal Medicine 02/15/23 Jess Marsh LPN [address] [facility] 110 [place] [address] 12/06/24 Esthela Tesfaye, KIRA [address] [place] [address] Die Engraver Family Medicine 02/03/25 documented as of this encounter
--- OUTSIDE RECORDS SUMMARY | 2025-04-09 11:51 | XMS_ITS | Encounter Summary ---
Author Organization [facility] Address [address] [facility] [place] [address] Care Team Providers Care Labview Programmer Name Role Phone Shlomo Hu MD Primary Care Provider [phone] Claribel Scott RN Unavailable [phone] Jess Marsh CAMPUS SAFETY OFFICER Unavailable Esthela Tesfaye WILDLIFE CONSERVATION PROFESSOR Unavailable [phone] Encounter Details Date Type Department Care Team (Late st Contact Info) Description 11/09/2024 Abstract [facility] [address] [facility] 110 [place] [address] Shlomo Hu MD 112 [facility] 110 [place] [address] Social History Tobacco Use Types Packs/Day Years [...] How often do you attend chur or adventist services? 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 [...] CI PODIATRY [address] [place] 120 [place] [address] Sonny Rodriguez DPM [address] [address] 05/04/2025 2:50 PM EDT Office Visit [facility] [address] [facility] 120 [place] [address] Sonny Rodriguez DPLudmila [address] [address] documented as of this encounter Visit Diagnoses Not on filedocumented in this encounter Additional Health Concerns Assessment Noted Time PHQ-9 Depression Total Score: 18 024 9:42 AM EDT documented as of this encounter Care Teams Labview Programmer Relationship Specialty Start Date End Date Shlomo Hu MD [address] [facility] 110 [place] [address] PCP - General Internal Medicine 02/15/23 Claribel Scott RN [address] [place] [address] Licensed Practical Nurse Family Medicine 10/21/24 12/06/24 Jess Marsh LPN [address] [place] 110 [place] [address] 12/06/24 Esthela Tesfaye, KIRA [address] [place] [address] Water Ski Assembler Family Medicine 02/03/25 documented as of this encounter
--- OUTSIDE RECORDS SUMMARY | 2025-04-09 11:51 | XMS_ITS | Encounter Summary ---
Author Organization [facility] Address [address] [place] [address] Care Team Providers Care Forward Air Controller/Air Officer Name Role Phone Jacob Sharp Unavailable Rasheeda [address] RD Unavailable [phone] Unavailable [phone] Fritz HENDERSON MD, Shlomo B Primary Care Provider [phone] Yuan Miller MD, PhD Unavailable [phone] Source Comments In the event this information is protected by the Federal Confidentiality of Alcohol and Drug AbusePatient Records regulations: The Federal rules restrict any use of the information to criminally investigate or prosecute any alcohol or drug abuse patient.[facility] Encounter Details Date Type Department Care Team (Late st Contact Info) Description 12/14/2024 Get Medical Advice Rheumatology [address] [phone] [place] [address] [place] [address] Blood work Social History Tobacco Use Types Packs/Day Years Used Date Smoking Tobacco: Never Smokeless Tobacco: Never Alcohol Use Standard Drinks/Week Comments Not Currently 0 (1 standard drink = 0.6 oz pur e alcohol) [facility] Utilities Answer Date Recorded In the [...] is lower risk 4 03/05/2023 Data from: https://www.neighborhoodatlas.[facility]/. Last address used for calculation [...] 10:00 AM EDT Hospital Encounter Admitting [address] [id number] Yuan Miller MD, PhD [address] [place] [phone] Nausea and vomiting, unspecified vomiting type [R11.2], H/O bariatric surgery [Z98.84], Jejunostomy tube fell out [T85.528A] 04/10/2025 10:00 AM EDT - 04/10/2025 12:00 PM EDT Surgery Admitting [address] [phone] Yuan Miller MD, PhD [address] [place] [phone] LAPAROSCOPIC JEJUNOSTOMY 04/19/2025 11:00 AM EDT [facility] Neurological Quaker 9300 [place] [address] Joann Loera APRN.MANAGER INSPECTION [address] [phone] Cognitive movement issues 04/21/2025 8:30 AM EDT [facility] Nutrition Therapy [address] [phone] Tiffany Banks, RD 9500 [place] [address] f/u TF forula tolerance and hydration 05/18/2025 9:00 AM EDT [facility] General Surgery 9300 [place] [address] Michael Mora PA-C [address] [place] [address] [phone] f/u with michael mora in 2 wks 05/29/2025 9:00 AM EDT [facility] Gastroenterology [address] [phone] Johanna Martinez MD [facility] [address] [phone] 3 month follow up 06/28/2025 10:00 AM EDT [facility] Neurology Pain [address] [place] [address] [phone] [place] [address] [place], [place] [phone] Follow up for pain Scheduled Procedures Name Priority Associated Diagnoses Date/Ti me LAPAROSCOPIC JEJUNOSTOMY Nausea and vomiting, unspecified vomiting type H/O bariatric surgery Jejunostomy tube fell out 04/10/2025 10:00 AM EDT documented as of this encounter Visit Diagnoses Not on filedocumented in this encounter Care Teams Forward Air Controller/Air Officer Relationship Specialty Start Date End Date Shlomo Hu II, MD [address] [place] [address] PCP - General Internal Medicine 10/06/23 Jacob Sharp [address] [phone] Referring 04/30/[address] [address] [phone] Registered Dietitian Nutrition 06/24/[address] [place], [place] [phone] Registered Dietitian Nutrition 08/27/23 Yuan Miller MD, PhD [address] [place], [place] [phone] Surgeon General Surgery 02/03/24 documented as of this encounter
--- OUTSIDE RECORDS SUMMARY | 2025-04-09 11:51 | XMS_ITS | Encounter Summary ---
Author Organization [facility] Address [address] [facility] [place] [address] Care Team Providers Care Excellence Consultant Name Role Phone Shlomo Hu MD Primary Care Provider [phone] Thursday, Toya INDUSTRIAL HEALTH AND SAFETY PROFESSOR Unavailable [phone] Shante Kumar ELASTIC ATTACHER COVERSTITCH-DIRECTOR OF SOCIAL WORK Unavailable Claribel Scott RN Unavailable [phone] Jess Marsh INDUSTRIAL HEALTH AND SAFETY PROFESSOR Unavailable Esthela Tesfaye NEWS SPECIALIST Unavailable Encounter Details Date Type Department Care Team (Late st Contact Info) Description 08/08/2024 Abstract [facility] [address] [facility] 110 [place] [address] Shlomo Hu MD 112 [facility] 110 [place], [place] [phone] Social History Tobacco Use Types Packs/Day Years [...] Recorded Patient Health Questionnaire-2 Score 1 06/09/2024 [facility] [place] of Occupat ional Health - Occupational Stress [...] 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 Not on file Not on file documented as of this encounter Plan of Treatment Upcoming Encounters Date Type Department Care Team ([facility] st Contact Info) Description 04/20/2025 3:00 PM EDT Office Visit [facility] [address] [facility] 120 [place] [address] Sonny Rodriguez DPM [address] [address] 05/04/2025 2:50 PM EDT Office Visit [facility] [address] [facility] 120 [place] [address] Sonny Rodriguez DPLudmila [address] [address] documented as of this encounter Visit Diagnoses Not on filedocumented in this encounter Additional Health Concerns Assessment Noted Time PHQ-9 Depression Total Score: 18 024 9:42 AM EDT documented as of this encounter Care Teams Excellence Consultant Relationship Specialty Start Date End Date Shlomo Hu MD [address] [facility] 110 [place] [address] PCP - General Internal Medicine 02/15/23 Shante Kumar, ELASTIC ATTACHER COVERSTITCH-DIRECTOR OF SOCIAL WORK [address] [place] [address] [place] [address] PCP - [place] [employer] 07/15/24 ThursdayToya LPN [address] [place] [address] Licensed Practical Nurse Family Medicine 01/19/24 10/21/24 Claribel Scott, PIETRO [address] [place] [address] Licensed Practical Nurse Family Medicine 10/21/24 12/06/24 Jess Marsh LPN 112 [facility] 110 [place] [address] 12/06/24 Esthela Tesfaye, KIRA [address] [place] [address] Call Center Nurse Family Medicine 02/03/25 documented as of this encounter
--- OUTSIDE RECORDS SUMMARY | 2025-04-09 11:51 | XMS_ITS | Encounter Summary ---
Author Organization [facility] Address [address] [facility] [place] [address] Care Team Providers Care Semiconductor Manufacturing Technician Name Role Phone Shlomo Hu MD Primary Care Provider [phone] Jess Marsh LPN Unavailable Esthela Tesfaye CIVIL DIVISION DEPUTY SHERIFF Unavailable [phone] Encounter Details Date Type Department Care Team (Late st Contact Info) Description 02/15/2025 Abstract [facility] Medince [address] [facility] 110 [place] [address] Shlomo Hu MD [address] [place] [facility] 110 [place] [address] Social History Tobacco Use Types Packs/Day Years [...] How often do you attend chur or sabianist services? 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 Not on file Not on file documented as of this encounter Plan of Treatment Upcoming Encounters Date Type Department Care Team (Late st Contact Info) Description 04/20/2025 3:00 PM EDT Office Visit [facility] [address] [facility] 120 [place] [address] Sonny Rodriguez, DPM 3006 [facility] 5 [place] [address] 05/04/2025 2:50 PM EDT Office Visit [facility] [address] [facility] 120 [place] [address] Sonny Rodriguez DPM [address] [address] documented as of this encounter Visit Diagnoses Not on filedocumented in this encounter Additional Health Concerns Assessment Noted Time PHQ-9 Depression Total Score: 18 024 9:42 AM EDT documented as of this encounter Care Teams Semiconductor Manufacturing Technician Relationship Specialty Start Date End Date Shlomo Hu MD [address] [facility] 110 [place] [address] PCP - General Internal Medicine 02/15/23 Jess Marsh LPN [address] [facility] 110 [place] [address] 12/06/24 Esthela Tesfaye, KIRA [address] [place] [address] Airport Ramp Supervisor Family Medicine 02/03/25 documented as of this encounter
--- OUTSIDE RECORDS SUMMARY | 2025-04-09 11:51 | XMS_ITS | Encounter Summary ---
Author Organization [facility] Address [address] [place] [address] Care Team Providers Care Flight Attendant Ramp Name Role Phone Jacob Sharp Unavailable Rasheeda Newton RD Unavailable [phone] Unavailable [phone] Fritz HENDERSON MD, Shlomo B Primary Care Provider [phone] Yuan Miller MD, PhD Unavailable [phone] Source Comments In the event this information is protected by the Federal Confidentiality of Alcohol and Drug AbusePatient Records regulations: The Federal rules restrict any use of the information to criminally investigate or prosecute any alcohol or drug abuse patient.[facility] Encounter Details Date Type Department Care Team (Late st Contact Info) Description 12/16/2024 Get Medical Advice Rheumatology [address] [phone] [place] [address] [place] [address] FollowUp Social History Tobacco Use Types Packs/Day Years Used Date Smoking Tobacco: Never Smokeless Tobacco: Never Alcohol Use Standard Drinks/Week Comments Not Currently 0 (1 standard drink = 0.6 oz pur e alcohol) [facility] Utilities Answer Date Recorded In [...] time in the past 12 m [facility], were you homeless or living in a longterm (including now)? No 10/18/2024 Area Deprivation Index Answer Date Reagan rded National Score (1-100), lower number is lower ri sk 63 03/05/2023 State Score (1-10), lower number is lower risk 4 03/05/2023 Data from: https://www.neighborhoodatlas.medicine.[facility]/. Last address used for calculation [address] 03/05/2023 Comments No [...] 04/10/2025 10:00 AM EDT Hospital Encounter Admitting [facility] [place] [address] Yuan Miller MD, PhD [address] [place], [place] [address] Nausea and vomiting, unspecified vomiting type [R11.2], H/O bariatric surgery [Z98.84], Jejunostomy tube fell out [T85.528A] 04/10/2025 10:00 AM EDT - 04/10/2025 12:00 PM EDT Surgery Admitting [address] [place] [address] Yuan Miller MD, PhD [facility] [place] [address] LAPAROSCOPIC JEJUNOSTOMY 04/19/2025 11:00 AM EDT [facility] Neurological Lutheran 9300 [place] [address] Joann Loera APRN.COST COORDINATOR 9500 [place] [address] Cognitive movement issues 04/21/2025 8:30 AM EDT [facility] Nutrition Therapy [address] 9500 [place] [address] f/u TF forula tolerance and hydration 05/18/2025 9:00 AM EDT [facility] General Surgery 9300 [place] [address] Michael Mora PA-C 9500 [place] [address] f/u with michael mora in 2 wks 05/29/2025 9:00 AM EDT [facility] Gastroenterology [address] [place] [address] Johanna Martinez MD [facility] [address] [address] 3 month follow up 06/28/2025 10:00 AM EDT [facility] Neurology Pain [address] [place] [phone] [place] [address] [place], [place] [phone] Follow up for pain Scheduled Procedures Name Priority Associated Diagnoses Date/Ti me LAPAROSCOPIC JEJUNOSTOMY Nausea and vomiting, unspecified vomiting type H/O bariatric surgery Jejunostomy tube fell out 04/10/2025 10:00 AM EDT documented as of this encounter Visit Diagnoses Not on filedocumented in this encounter Care Teams Flight Attendant Ramp Relationship Specialty Start Date End Date Shlomo Hu II, MD 112 [facility] 110 [place] [address] PCP - General Internal Medicine 10/06/23 Jacob Sharp [address] [place] [address] Referring 04/30/[address] [place] [address] Registered Dietitian Nutrition 06/24/[address] 9500 [place] [address] Registered Dietitian Nutrition 08/27/23 Yuan Miller MD, PhD 9500 [place] [address] Surgeon General Surgery 02/03/24 documented as of this encounter
--- OUTSIDE RECORDS SUMMARY | 2025-04-09 11:51 | XMS_ITS | Encounter Summary ---
Author Organization [facility] Address [address] [place] [address] Care Team Providers Care Manager Benefit Name Role Phone Jacob Sharp Unavailable Rasheeda Newton RD Unavailable [phone] Unavailable [phone] Fritz HENDERSON MD, Shlomo Momin Primary Care Provider [phone] Yuan Miller MD, PhD Unavailable [phone] Source Comments In the event this information is protected by the Federal Confidentiality of Alcohol and Drug AbusePatient Records regulations: The Federal rules restrict any use of the information to criminally investigate or prosecute any alcohol or drug abuse patient.[facility] Encounter Details Date Type Department Care Team (Late st Contact Info) Description 12/14/2024 Patient Msg Orth and Rheum [facility] [address] [place] [address] Provider, Ccf Appointment Social History Tobacco Use Types Packs/Day Years Used Date Smoking Tobacco: Never Smokeless Tobacco: Never Alcohol Use Standard Drinks/Week Comments Not Currently 0 (1 standard drink = 0.6 oz pur e alcohol) [facility] Utilities Answer Date Recorded In the past 12 months has [employer], gas, oil, or water [employer] threatened to shut off services in your [...] any time in the past 12 m [facility], were you homeless or living in a detention (including now)? No 10/18/2024 Area Deprivation Index Answer Date Reagan rded National Score (1-100), lower number is lower ri sk 63 03/05/2023 State Score (1-10), lower number is lower risk 4 03/05/2023 Data from: https://www.neighborhoodatlas.medicine.[facility]/. Last address used [...] file Travel History Travel Start Travel End [place] 03/18/2025 03/26/2025 documented as of this encounter [...] 10:00 AM EDT Hospital Encounter Admitting 9500 [place] [address] Yuan Miller MD, PhD 9500 [place] [address] Nausea and vomiting, unspecified vomiting type [R11.2], H/O bariatric surgery [Z98.84], Jejunostomy tube fell out [T85.528A] 04/10/2025 10:00 AM EDT - 04/10/2025 12:00 PM EDT Surgery Admitting 9500 [place] [address] Yuan Miller MD, PhD 9500 [place] [address] LAPAROSCOPIC JEJUNOSTOMY 04/19/2025 11:00 AM EDT [facility] Neurological Adventism [address] [place] [address] Joann Loera APRN.SCHOOL CROSSING GUARD SUPERVISOR 9500 [place] [address] Cognitive movement issues 04/21/2025 8:30 AM EDT [facility] Nutrition Therapy [address] [address] Tiffany Banks, RD 9500 [place] [address] f/u TF forula tolerance and hydration 05/18/2025 9:00 AM EDT [facility] General Surgery 9299 [place] [address] Michael Mora PA-C 9500 [place] [address] f/u with michael mora in 2 wks 05/29/2025 9:00 AM EDT [facility] Gastroenterology [address] [address] Johanna Martinez MD [facility] [address] [place], [place] [phone] 3 month follow up 06/28/2025 10:00 AM EDT [facility] Neurology Pain [address] [place] [address] [place] [address] [place] [address] Follow up for pain Scheduled Procedures Name Priority Associated Diagnoses Date/Ti me LAPAROSCOPIC JEJUNOSTOMY Nausea and vomiting, unspecified vomiting type H/O bariatric surgery Jejunostomy tube fell out 04/10/2025 10:00 AM EDT documented as of this encounter Visit Diagnoses Not on filedocumented in this encounter Care Teams Manager Benefit Relationship Specialty Start Date End Date Shlomo Hu II, MD 112 [facility] 110 [place] [address] PCP - General Internal Medicine 10/06/23 Jacob Sharp [address] [place] [address] [phone] Referring 04/30/[address] [place] [phone] Registered Dietitian Nutrition 06/24/[address] 9500 [place] [address] Registered Dietitian Nutrition 08/27/23 Yuan Miller MD, PhD 9500 [place] [address] Surgeon General Surgery 02/03/24 documented as of this encounter
--- OUTSIDE RECORDS SUMMARY | 2025-04-09 11:52 | XMS_ITS | Encounter Summary ---
Author Organization [facility] Address [address] [place] [address] Care Team Providers Care Print Inspector Name Role Phone Jacob Sharp Unavailable Rasheeda Newton RD Unavailable [phone] Unavailable [phone] Fritz HENDERSON MD, Shlomo Momin Primary Care Provider [phone] Yuan Miller MD, PhD Unavailable [phone] Source Comments In the event this information is protected by the Federal Confidentiality of Alcohol and Drug AbusePatient Records regulations: The Federal rules restrict any use of the information to criminally investigate or prosecute any alcohol or drug abuse patient.[facility] Encounter Details Date Type Department Care Team (Late st Contact Info) Description 10/21/2023 Patient Msg Gastroenterology [address] [place] [phone] Provider, Ccf Vitamin D level Social History [...] is lower risk 4 03/05/2023 Data from: https://www.neighborhoodatlas.medicine.[facility].edu/. Last address used for calculation [address] [...] file Travel History Travel Start Travel End [place] 03/18/2025 03/26/2025 documented as of this [...] Entry Date Author No 08/17/2023 4:25 PM Mlilicent Madrigal RN documented in this encounter Plan of Treatment Upcoming Encounters Date Type Department Care Team (Latest Contact Info) Description 04/10/2025 10:00 AM EDT Hospital Encounter Admitting [facility] [place] [address] Yuan Miller MD, PhD [address] [place] [address] Nausea and vomiting, unspecified vomiting type [R11.2], H/O bariatric surgery [Z98.84], Jejunostomy tube fell out [T85.528A] 04/10/2025 10:00 AM EDT - 04/10/2025 12:00 PM EDT Surgery Admitting [facility] [place] [address] Yuan Miller MD, PhD [address] [place] [phone] LAPAROSCOPIC JEJUNOSTOMY 04/19/2025 11:00 AM EDT [facility] Neurological Oriental Orthodox 9300 [place] [address] Joann Loera APRN.ABSTRACT MANAGER 9500 [place] [address] Cognitive movement issues 04/21/2025 8:30 AM EDT [facility] Nutrition Therapy [address] [place] [phone] Tiffany Banks, RD [address] [place] 2102995 f/u TF forula tolerance and hydration 05/18/2025 9:00 AM EDT [facility] General Surgery [address] [place] [phone] Michael Mora PA-C [address] [place] 2102995 f/u with michael mora in 2 wks 05/29/2025 9:00 AM EDT [facility] Gastroenterology [address] [place] [phone] Johanna Martinez MD [facility] [address] [place] [phone] 3 month follow up 06/28/2025 10:00 AM EDT [facility] Neurology Pain [address] [place] [phone] [place] [address] [place] [phone] Follow up for pain Scheduled Procedures Name [...] documented as of this encounter Care Teams Print Inspector Relationship Specialty Start Date End Date Shlomo Hu II, MD [address] [facility] 110 [place] [address] PCP - General Internal Medicine 10/06/23 Jacob Sharp [address] [place] [address] Referring 04/30/[address] [place] [phone] Registered Dietitian Nutrition 06/24/[address] [facility] [place] [address] Registered Dietitian Nutrition 08/27/23 Yuan Miller MD, PhD [facility] [place], [place] [phone] Surgeon General Surgery 02/03/24 documented as of this encounter
--- OUTSIDE RECORDS SUMMARY | 2025-04-09 11:52 | XMS_ITS | Encounter Summary ---
Author Organization [facility] Address [address] [place] [address] Care Team Providers Care Roller Inspector Name Role Phone Jacob Sharp Unavailable Rasheeda Newton RD Unavailable [phone] Unavailable [phone] Fritz HENDERSON MD, Shlomo B Primary Care Provider [phone] Yuan Miller MD, PhD Unavailable [phone] Source Comments In the event this [...] 11/09/2023 Get Medical Advice Pain Management [address] [place] [address] Mary Arthur, RECEIVING TEAM MEMBER.CONTACT CENTER REP [address] [address] [place] [address] Pain Social History Tobacco Use [...] in a skilled nursing (including now)? No 08/10/2023 Area Deprivation Index Answer Date Reagan rded National Score (1-100), lower number is lower ri sk 63 03/05/2023 State Score (1-10), lower number is lower risk 4 03/05/2023 Data from: https://www.neighborhoodatlas.medicine.[facility].edu/. Last address used for calculation [address] [...] 04/10/2025 10:00 AM EDT Hospital Encounter Admitting [address] [place] [address] Yuan Miller MD, PhD [address] [place] [address] Nausea and vomiting, unspecified vomiting type [R11.2], H/O bariatric surgery [Z98.84], Jejunostomy tube fell out [T85.528A] 04/10/2025 10:00 AM EDT - 04/10/2025 12:00 PM EDT Surgery Admitting 9500 [place] [address] Yuan Miller MD, PhD 9500 [place] [address] LAPAROSCOPIC JEJUNOSTOMY 04/19/2025 11:00 AM EDT [facility] Neurological Sikhism [address] [place] [phone] Joann Loera APRN.CONTACT CENTER REP [address] [place] [phone] Cognitive movement issues 04/21/2025 8:30 AM EDT [facility] Nutrition Therapy [address] [place] 5944506 Tiffany Banks, RD [address] [place] 5976195 f/u TF forula tolerance and hydration 05/18/2025 9:00 AM EDT [facility] General Surgery [address] [place] [phone] Michael Mora PA-C [address] [place] 5976195 f/u with michael mora in 2 wks 05/29/2025 9:00 AM T [facility] Gastroenterology [address] [place] [phone] Johanna Martinez MD [facility] [address] [place], [place] 1566006 3 month follow up 06/28/2025 10:00 AM EDT [facility] Neurology Pain [address] [place] 5976106 [place] [address] [place] [phone] Follow up for pain Scheduled Procedures Name [...] documented as of this encounter Care Teams Roller Inspector Relationship Specialty Start Date End Date Shlomo Hu II, MD [address] [facility] 110 [place] [address] PCP - General Internal Medicine 10/06/23 Jacob Sharp [address] [place] [phone] Referring 04/30/[address] [place] [address] Registered Dietitian Nutrition 06/24/[address] 6780 [place] [address] Registered Dietitian Nutrition 08/27/23 Yuan Miller MD, PhD 1850 [place] [address] Surgeon General Surgery 02/03/24 documented as of this encounter
--- OUTSIDE RECORDS SUMMARY | 2025-04-09 11:52 | XMS_ITS | Encounter Summary ---
Author Organization [facility] Address [address] [place] [address] Care Team Providers Care Garage Construction Equipment Mechanic Name Role Phone Jacob Sharp Unavailable Rasheeda Newton RD Unavailable [phone] Unavailable Fritz HENDERSON MD, Shlomo Momin Primary Care Provider [phone] Yuan Miller MD, PhD Unavailable [phone] Source Comments In the event this information is protected by the Federal Confidentiality of Alcohol and Drug AbusePatient Records regulations: The Federal rules restrict any use of the information to criminally investigate or prosecute any alcohol or drug abuse patient.[facility] Encounter Details Date Type Department Care Team (Late st Contact Info) Description 12/28/2024 Patient Msg Gastroenterology [address] [place] [phone] Provider, Ccf follow up on tube issues Social History Tobacco Use Types Packs/Day Years Used Date Smoking Tobacco: Never Smokeless Tobacco: Never Alcohol Use Standard Drinks/Week Comments Not Currently 0 (1 standard drink = 0.6 oz pur e alcohol) [facility] Utilities Answer Date Recorded In the past 12 months has th e electric, gas, oil, or water [employer] threatened to shut off services in your [...] any time in the past 12 m [facility], were you homeless or living in a group home (including now)? No 10/18/2024 Area Deprivation Index Answer Date Reagan rded National Score (1-100), lower number is lower ri sk 63 03/05/2023 State Score (1-10), lower number is lower risk 4 03/05/2023 Data from: https://www.neighborhoodatlas.medicine.[facility]/. Last address used for [...] 10:00 AM EDT Hospital Encounter Admitting 9500 [place] [address] Yuan Miller MD, PhD [address] [place] [phone] Nausea and vomiting, unspecified vomiting type [R11.2], H/O bariatric surgery [Z98.84], Jejunostomy tube fell out [T85.528A] 04/10/2025 10:00 AM EDT - 04/10/2025 12:00 PM EDT Surgery Admitting [address] [place] [phone] Yuan Miller MD, PhD [address] [place] [phone] LAPAROSCOPIC JEJUNOSTOMY 04/19/2025 11:00 AM EDT [facility] Neurological [place]azidi [address] [place] [phone] Joann Loera APRN.WARD CLERK [address] [place] [phone] Cognitive movement issues 04/21/2025 8:30 AM EDT [facility] Nutrition Therapy [address] [address] Tiffany Banks, RD 9500 [place] [address] f/u TF forula tolerance and hydration 05/18/2025 9:00 AM EDT [facility] General Surgery 9299 [place] [address] Michael Mora PA-C 9500 [place] [address] f/u with michael mora in 2 wks 05/29/2025 9:00 AM EDT [facility] Gastroenterology [address] [place] [phone] Johanna Martinez MD [facility] [address] [place] [address] 3 month follow up 06/28/2025 10:00 AM EDT [facility] Neurology Pain [address] [place] [phone] Quique WilmaDO [address] [place] [address] Follow up for pain Scheduled Procedures Name Priority Associated Diagnoses Date/Ti me LAPAROSCOPIC JEJUNOSTOMY Nausea and vomiting, unspecified vomiting type H/O bariatric surgery Jejunostomy tube fell out 04/10/2025 10:00 AM EDT documented as of this encounter Visit Diagnoses Not on filedocumented in this encounter Care Teams Garage Construction Equipment Mechanic Relationship Specialty Start Date End Date Shlomo Hu II, MD [address] [place] [address] 110 [place] [address] PCP - General Internal Medicine 10/06/23 Jacob Sharp [address] [place] [phone] Referring 04/30/[address] [place] [phone] Registered Dietitian Nutrition 06/24/[address] [place] [phone] Registered Dietitian Nutrition 08/27/23 Yuan Miller MD, PhD 9500 [place] [address] Surgeon General Surgery 02/03/24 documented as of this encounter
--- OUTSIDE RECORDS SUMMARY | 2025-04-09 11:52 | XMS_ITS | Encounter Summary ---
Author Organization [facility] Address [address] [facility] [place] [address] Care Team Providers Care Dining Services Manager Name Role Phone Shlomo Hu MD Primary Care Provider Thursday, Toya MEDICATION RECONCILIATION TECHNICIAN Unavailable [phone] Claribel Scott RN Unavailable Marsh, Jess MEDICATION RECONCILIATION TECHNICIAN Unavailable Esthela Tesfaye INSURANCE CLAIMS EXAMINER Unavailable Encounter Details Date Type Department Care Team (Late st Contact Info) Description 10/07/2024 [facility] [address] [facility] 110 [place] [address] Shlomo Hu MD [address] [facility] 110 [place] [address] Social History Tobacco Use Types Packs/Day Years [...] Recorded Patient Health Questionnaire-2 Score 2 09/19/2024 [facility] [place] of Occupat ional Health - Occupational Stress [...] 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 Not on file Not on file documented as of this encounter Plan of Treatment Upcoming Encounters Date Type Department Care Team (Late st Contact Info) Description 04/20/2025 3:00 PM EDT Office Visit [facility] [address] [place] [place] [address] Sonny Rodriugez, DPM [address] [address] 05/04/2025 2:50 PM EDT Office Visit [facility] [address] [place] [address] Sonny Rodriguez, DPM [address] [address] documented as of this encounter Visit Diagnoses Not on filedocumented in this encounter Additional Health Concerns Assessment Noted Time PHQ-9 Depression Total Score: 18 024 9:42 AM EDT documented as of this encounter Care Teams Dining Services Manager Relationship Specialty Start Date End Date Shlomo Hu MD [address] [place] [address] [place] [address] PCP - General Internal Medicine 02/15/23ThursdayToya LPN [address] [place] [address] Licensed Practical Nurse Family Medicine 01/19/24 10/21/24 Claribel Scott, RN [address] [place] [address] Licensed Practical Nurse Family Medicine 10/21/24 12/06/24 Jess Marsh LPN [address] [place] [address] [place] [address] 12/06/24 Esthela Tesfaye LSW [address] [place] [address] [employer] Technical Lead Senior Developer Family Medicine 02/03/25 documented as of this encounter
--- OUTSIDE RECORDS SUMMARY | 2025-04-09 11:52 | XMS_ITS | Encounter Summary ---
Author Organization [facility] Address [address] [facility] [place] [address] Care Team Providers Care Church Secretary Name Role Phone Shlomo Hu MD Primary Care Provider [phone] Claribel Scott RN Unavailable [phone] Jess Marsh FARM MANAGEMENT ADVISER Unavailable Esthela Tesfaye PRESTO LOG OPERATOR Unavailable [phone] Encounter Details Date Type Department Care Team (Late st Contact Info) Description 11/17/2024 Abstract [facility] [address] [facility] 110 [place] [address] Shlomo Hu MD 112 [facility] 110 [place] [address] Social History Tobacco Use Types Packs/Day Years [...] How often do you attend chur or islam services? 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 Not on file Not on file documented as of this encounter Plan of Treatment Upcoming Encounters Date Type Department Care Team (Late st Contact Info) Description 04/20/2025 3:00 PM EDT Office Visit [facility] [address] [place] [place] [address] Sonny Rodriguez, DPM 3006 [facility] 5 [place] [address] 05/04/2025 2:50 PM EDT Office Visit [facility] [address] [place] [place] [address] Sonny Rodriguez, DPM [address] [address] documented as of this encounter Visit Diagnoses Not on filedocumented in this encounter Additional Health Concerns Assessment Noted Time PHQ-9 Depression Total Score: 18 024 9:42 AM EDT documented as of this encounter Care Teams Church Secretary Relationship Specialty Start Date End Date Shlomo Hu MD [address] [facility] 110 [place] [address] PCP - General Internal Medicine 02/15/23 Claribel Scott, RN [address] [place] [address] Licensed Practical Nurse Family Medicine 10/21/24 12/06/24 Jess Marsh LPN [address] [facility] 110 [place] [address] 12/06/24 Esthela Tesfaye LSW 1479 [place] [address] Gear Shaper Set Up Operator Family Medicine 02/03/25 documented as of this encounter
--- OUTSIDE RECORDS SUMMARY | 2025-04-09 11:52 | XMS_ITS | Encounter Summary ---
Author Organization [facility] Address [address] [place] [address] Care Team Providers Care Communication Skills Instructor Name Role Phone Shlomo Hu MD Primary Care Provider [phone] Claribel Scott RN Unavailable [phone] Jess Marsh GRE[place]T Unavailable Esthela Tesfaye FIRE REGULATOR Unavailable [phone] Reason for Visit * Reason Comments Med Refill Encounter Details Date Type Department Care Team (Late st Contact Info) Description 11/16/2024 Refill [facility] 112 [facility] 160 [place] [address] Shante Kumar, DIRECTOR OF MATERIALS MANAGEMENT-[facility] 112 [facility] 160 [place] [address] Insomnia, unspecified type Social History Tobacco Use [...] How often do you attend chur or confucianism services? 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 Not on file Not on file documented as of this encounter Plan of Treatment Upcoming Encounters Date Type Department Care Team (Late st Contact Info) Description 04/20/2025 3:00 PM EDT Office Visit [facility] [address] [facility] 120 [place] [address] Sonny Rodriguez DPM [address] [address] 05/04/2025 2:50 PM EDT Office Visit [facility] [address] [facility] 120 [place] [address] Sonny Rodriguez DPM [address] [address] documented as of this encounter Visit Diagnoses Diagnosis Insomnia, unspecified type documented in this encounter Additional Health Concerns Assessment Noted Time PHQ-9 Depression Total Score: 18 024 9:42 AM EDT documented as of this encounter Care Teams Communication Skills Instructor Relationship Specialty Start Date End Date Shlomo Hu MD [address] [facility] 110 [place] [address] PCP - General Internal Medicine 02/15/23 Claribel Scott, RN 1472 [place] [address] Licensed Practical Nurse Family Medicine 10/21/24 12/06/24 Jess Marsh LPN [address] [facility] 110 [place] [address] 12/06/24 Esthela Tesfaye LSW 1479 [place] [address] Six Sigma Project Manager Family Medicine 02/03/25 documented as of this encounter
--- OUTSIDE RECORDS SUMMARY | 2025-04-09 11:52 | XMS_ITS | Encounter Summary ---
Author Organization [facility] Address [address] [place] [address] Care Team Providers Care Naval Architect Name Role Phone Jacob Shrap Unavailable Rasheeda Newton RD Unavailable [phone] Unavailable [phone] Fritz HENDERSON MD, Shlomo Momin Primary Care Provider [phone] Yuan Miller MD, PhD Unavailable [phone] Source Comments In the event this information is protected by the Federal Confidentiality of Alcohol and Drug AbusePatient Records regulations: The Federal rules restrict any use of the information to criminally investigate or prosecute any alcohol or drug abuse patient.[facility] Encounter Details Date Type Department Care Team (Late st Contact Info) Description 11/03/2023 Patient Msg Gastroenterology [address] [place] [id number] Provider, Ccf time change for 11/05 Social [...] risk 4 03/05/2023 Data from: https://www.neighborhoodatlas.medicine.[facility].edu/. Last address used for calculation [address] [...] 10:00 AM EDT Hospital Encounter Admitting [address] [place] [address] Yuan Miller MD, PhD [address] [place] [address] Nausea and vomiting, unspecified vomiting type [R11.2], H/O bariatric surgery [Z98.84], Jejunostomy tube fell out [T85.528A] 04/10/2025 10:00 AM EDT - 04/10/2025 12:00 PM EDT Surgery Admitting 9500 [place] [address] Yuan Miller MD, PhD 9500 [place] [address] LAPAROSCOPIC JEJUNOSTOMY 04/19/2025 11:00 AM EDT [facility] Neurological Gnosticist 9300 [place] [address] Joann Loera APRN.SENIOR SALES COMPENSATION ANALYST 9500 [place] [address] Cognitive movement issues 04/21/2025 8:30 AM EDT [facility] Nutrition Therapy [address] [address] Tiffany Banks, RD 9500 [place] [address] f/u TF forula tolerance and hydration 05/18/2025 9:00 AM EDT [facility] General Surgery [address] [id number] Michael Mora PA-C 9500 [place] [address] f/u with michael mora in 2 wks 05/29/2025 9:00 AM EDT [facility] Gastroenterology [address] [address] Johanna Martinez MD [facility] [address] [address] 3 month follow up 06/28/2025 10:00 AM EDT [facility] Neurology Pain [address] [place] [address] [place] [address] [place] [address] Follow up for pain Scheduled Procedures Name [...] documented as of this encounter Care Teams Naval Architect Relationship Specialty Start Date End Date Shlomo Hu II, MD [address] [facility] 110 [place] [address] PCP - General Internal Medicine 10/06/23 Jacob Sharp [address] [place] [address] Referring 04/30/[address] [place] [phone] Registered Dietitian Nutrition 06/24/[address] [facility] [place] [address] Registered Dietitian Nutrition 08/27/23 Yuan Miller MD, PhD 9500 [place] [address] Surgeon General Surgery 02/03/24 documented as of this encounter
--- OUTSIDE RECORDS SUMMARY | 2025-04-09 11:52 | XMS_ITS | Encounter Summary ---
Author Organization [facility] Address [address] [facility] [place] [address] Care Team Providers Care Interface Engineer Name Role Phone Shlomo Hu MD Primary Care Provider [phone] Claribel Scott RN Unavailable [phone] Jess Marsh DATA COLLECTION TECHNICIAN Unavailable Esthela Tesfaye STROKE BELT SANDER OPERATOR Unavailable [phone] Encounter Details Date Type Department Care Team (Late st Contact Info) Description 11/17/2024 Abstract [facility] [place] [facility] [address] [facility] 110 [place] [address] Shlomo Hu MD 112 [facility] 110 [place] [address] Social History Tobacco Use Types Packs/Day Years [...] Health Questionnaire-2 Score 0 11/10/2024 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 Not on file Not on file documented as of this encounter Plan of Treatment Upcoming Encounters Date Type Department Care Team (Late st Contact Info) Description 04/20/2025 3:00 PM EDT Office Visit [facility] [address] [place] 120 [place] [address] Sonny Rodriguez, DPM 3006 [facility] 5 [place] [address] 05/04/2025 2:50 PM EDT Office Visit [facility] [address] [place] 120 [place] [address] Sonny Rodriguez, DPM [address] [address] documented as of this encounter Visit Diagnoses Not on filedocumented in this encounter Additional Health Concerns Assessment Noted Time PHQ-9 Depression Total Score: 18 024 9:42 AM EDT documented as of this encounter Care Teams Interface Engineer Relationship Specialty Start Date End Date Shlomo Hu MD [address] [facility] 110 [place] [address] PCP - General Internal Medicine 02/15/23 Claribel Scott, RN 1471 [place] [address] Licensed Practical Nurse Family Medicine 10/21/24 12/06/24 Jess Marsh LPN [address] [facility] 110 [place] [address] 12/06/24 Esthela Tesfaye LSW 1479 [place] [address] Seafood Preparer Family Medicine 02/03/25 documented as of this encounter
--- OUTSIDE RECORDS SUMMARY | 2025-04-09 11:52 | XMS_ITS | Encounter Summary ---
Author Organization [facility] Address [address] [facility] [place] [address] Care Team Providers Care Carbonation Equipment Operator Name Role Phone Shlomo Hu MD Primary Care Provider [phone] Claribel Scott RN Unavailable [phone] Jess Marsh SCROLL ASSEMBLER Unavailable Esthela Tesfaye HOOKER UP Unavailable [phone] Encounter Details Date Type Department Care Team (Late st Contact Info) Description 11/16/2024 Abstract [facility] [place] [facility] [address] [facility] 110 [place] [address] Shlomo Hu MD 112 [facility] 110 [place] [address] Social History Tobacco Use Types Packs/Day Years [...] How often do you attend chur or buddhist services? 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 Not on file Not on file documented as of this encounter Plan of Treatment Upcoming Encounters Date Type Department Care Team (Late st Contact Info) Description 04/20/2025 3:00 PM EDT Office Visit [facility] [address] [place] [address] [place] [address] Sonny Rodriguez, DPM 3006 [facility] 5 [place] [address] 05/04/2025 2:50 PM EDT Office Visit [facility] [address] [place] [address] [place] [address] Sonny Rodriguez, DPM [address] [address] documented as of this encounter Visit Diagnoses Not on filedocumented in this encounter Additional Health Concerns Assessment Noted Time PHQ-9 Depression Total Score: 18 024 9:42 AM EDT documented as of this encounter Care Teams Carbonation Equipment Operator Relationship Specialty Start Date End Date Shlomo Hu MD [address] [facility] 110 [place] [address] PCP - General Internal Medicine 02/15/23 Claribel Scott, RN 1474 [place] [address] Licensed Practical Nurse Family Medicine 10/21/24 12/06/24 Jess Marsh LPN [address] [facility] 110 [place] [address] 12/06/24 Esthela Tesfaye LSW 1479 [place] [address] Manager Trading Family Medicine 02/03/25 documented as of this encounter
--- OUTSIDE RECORDS SUMMARY | 2025-04-09 11:52 | XMS_ITS | Encounter Summary ---
Author Organization [facility] Address [address] [place] [address] Care Team Providers Care Spray Gun Operator Name Role Phone Jacob Sharp Unavailable Rasheeda Newton RD Unavailable [phone] Unavailable [phone] Fritz HENDERSON MD, Shlomo B Primary Care Provider [phone] Yuan Miller MD, PhD Unavailable [phone] Source Comments In the event this information is protected by the Federal Confidentiality of Alcohol and Drug AbusePatient Records regulations: The Federal rules restrict any use of the information to criminally investigate or prosecute any alcohol or drug abuse patient.[facility] Encounter Details Date Type Department Care Team (Late st Contact Info) Description 01/17/2025 Patient [facility] HB-[address] [place] [address] Moraima Araya RPh At your next appointment, choose [facility]. Social History Tobacco Use Types Packs/Day Years Used Date Smoking Tobacco: Never Smokeless Tobacco: Never Alcohol Use Standard Drinks/Week Comments Not Currently 0 (1 standard drink = 0.6 oz pur e alcohol) [facility] Utilities Answer Date Recorded In the past 12 months has th e [employer], gas, oil, or water company threatened to [...] in a penitentiary (including now)? No 02/16/2024 Housing Stability Vital [...] living in a penitentiary (including now)? No 10/18/2024 Area Deprivation Index Answer Date Reagan rded National Score (1-100), lower number is lower ri sk 63 03/05/2023 State Score (1-10), lower number is lower risk 4 03/05/2023 Data from: https://www.neighborhoodatlas.medicine.[facility]/. Last address used for calculation [address] [...] file Travel History Travel Start Travel End [place] 03/18/2025 03/26/2025 documented as of this encounter [...] EDT Hospital Encounter Admitting 9500 [place] [address] Yuan Miller MD, PhD 9500 [place] [address] Nausea and vomiting, unspecified vomiting type [R11.2], H/O bariatric surgery [Z98.84], Jejunostomy tube fell out [T85.528A] 04/10/2025 10:00 AM EDT - 04/10/2025 12:00 PM EDT Surgery Admitting [address] [place] [address] [phone] Yuan Miller MD, PhD [address] [place] [id number] LAPAROSCOPIC JEJUNOSTOMY 04/19/2025 11:00 AM EDT [facility] Neurological Religion 9300 [place] [address] Joann Loera, DEVOPS CONSULTANT.CALCULUS TEACHER [address] [place] [phone] Cognitive movement issues 04/21/2025 8:30 AM EDT [facility] Nutrition Therapy [address] [address] Tiffany Banks, RD 9500 [place] [address] f/u TF forula tolerance and hydration 05/18/2025 9:00 AM EDT [facility] General Surgery 9300 [place] [address] Michael Mora PA-C [address] [place] [phone] f/u with michael mora in 2 wks 05/29/2025 9:00 AM EDT [facility] Gastroenterology [address] [address] [facility] [address] [place] [address] 3 month follow up 06/28/2025 10:00 AM EDT [facility] Neurology Pain [address] [place] [address] [place] [address] [place], [place] [phone] Follow up for pain Scheduled Procedures Name Priority Associated Diagnoses Date/Ti me LAPAROSCOPIC JEJUNOSTOMY Nausea and vomiting, unspecified vomiting type H/O bariatric surgery Jejunostomy tube fell out 04/10/2025 10:00 AM EDT documented as of this encounter Visit Diagnoses Not on filedocumented in this encounter Care Teams Spray Gun Operator Relationship Specialty Start Date End Date Shlomo Hu II, MD 112 [facility] 110 [place] [address] PCP - General Internal Medicine 10/06/23 Jacob Sharp [address] [place] [address] Referring 04/30/[address] [address] Registered Dietitian Nutrition 06/24/[address] [place] [phone] Registered Dietitian Nutrition 08/27/23 Yuan Miller MD, PhD 9500 [place], [place] [phone] Surgeon General Surgery 02/03/24 documented as of this encounter
--- OUTSIDE RECORDS SUMMARY | 2025-04-09 11:52 | XMS_ITS | Encounter Summary ---
Author Organization [facility] Address [address] [place] [address] Care Team Providers Care Profile Stitching Machine Operator Name Role Phone Jacob Sharp Unavailable Rasheeda Newton RD Unavailable [phone] Unavailable [phone] Fritz HENDERSON MD, Shlomo Momin Primary Care Provider [phone] Yuan Miller MD, PhD Unavailable [phone] Source Comments In the event this information is protected by the Federal Confidentiality of Alcohol and Drug AbusePatient Records regulations: The Federal rules restrict any use of the information to criminally investigate or prosecute any alcohol or drug abuse patient.[facility] Encounter Details Date Type Department Care Team (Late st Contact Info) Description 01/03/2025 Patient Msg Gastroenterology [address] [place] [phone] Provider, Ccf follow up on tube issue Social History Tobacco Use Types Packs/Day Years Used Date Smoking Tobacco: Never Smokeless Tobacco: Never Alcohol Use Standard Drinks/Week Comments Not Currently 0 (1 standard drink = 0.6 oz pur e alcohol) [facility] Utilities Answer Date Recorded In the past 12 months has th e electric, gas, oil, or water [employer] threatened to shut off services in your [...] lower risk 4 03/05/2023 Data from: https://www.neighborhoodatlas.medicine.[facility]/. Last address used for calculation [address] [...] 10:00 AM EDT Hospital Encounter Admitting 9500 [place] [address] Yuan Miller MD, PhD [address] [place] [phone] Nausea and vomiting, unspecified vomiting type [R11.2], H/O bariatric surgery [Z98.84], Jejunostomy tube fell out [T85.528A] 04/10/2025 10:00 AM EDT - 04/10/2025 12:00 PM EDT Surgery Admitting [address] [place] [phone] Yuan Miller MD, PhD [address] [place] [phone] LAPAROSCOPIC JEJUNOSTOMY 04/19/2025 11:00 AM EDT [facility] Neurological Taoism [address] [place] [phone] Joann Loera APRN.CLOTH DRIER [address] [place] [phone] Cognitive movement issues 04/21/2025 8:30 AM EDT [facility] Nutrition Therapy [address] [address] Tiffany Banks, RD 9500 [place] [address] f/u TF forula tolerance and hydration 05/18/2025 9:00 AM EDT [facility] General Surgery 9299 [place] [address] Michael Mora PA-C 9500 [place] [address] f/u with michael mora in 2 wks 05/29/2025 9:00 AM EDT [facility] Gastroenterology [address] [place] [phone] Johanna Martinez MD [facility] [address] [place] [address] 3 month follow up 06/28/2025 10:00 AM EDT [facility] Neurology Pain [address] [place] [phone] Quique WilmaDO [address] [place] [address] Follow up for pain Scheduled Procedures Name Priority Associated Diagnoses Date/Ti me LAPAROSCOPIC JEJUNOSTOMY Nausea and vomiting, unspecified vomiting type H/O bariatric surgery Jejunostomy tube fell out 04/10/2025 10:00 AM EDT documented as of this encounter Visit Diagnoses Not on filedocumented in this encounter Care Teams Profile Stitching Machine Operator Relationship Specialty Start Date End Date Shlomo Hu II, MD [address] [place] [address] 110 [place] [address] PCP - General Internal Medicine 10/06/23 Jacob Sharp [address] [place] [phone] Referring 04/30/[address] [place] [phone] Registered Dietitian Nutrition 06/24/[address] [place] [phone] Registered Dietitian Nutrition 08/27/23 Yuan Miller MD, PhD 9500 [place] [address] Surgeon General Surgery 02/03/24 documented as of this encounter
--- OUTSIDE RECORDS SUMMARY | 2025-04-09 11:52 | XMS_ITS | Encounter Summary ---
Author Organization [facility] Address [address] [place] [address] Care Team Providers Care Car Coupler Name Role Phone Jacob Sharp Unavailable Rasheeda Newton RD Unavailable [phone] Unavailable [phone] Fritz HENDERSON MD, Shlomo Momin Primary Care Provider [phone] Yuan Miller MD, PhD Unavailable [phone] Source Comments In the event this information is protected by the Federal Confidentiality of Alcohol and Drug AbusePatient Records regulations: The Federal rules restrict any use of the information to criminally investigate or prosecute any alcohol or drug abuse patient.[facility] Encounter Details Date Type Department Care Team (Late st Contact Info) Description 01/04/2025 Patient Msg Gastroenterology [address] [place] [phone] Provider, Ccf medication approval Social History Tobacco Use Types Packs/Day Years Used Date Smoking Tobacco: Never Smokeless Tobacco: Never Alcohol Use Standard Drinks/Week Comments Not Currently 0 (1 standard drink = 0.6 oz pur e alcohol) [facility] Utilities Answer Date Recorded In the past 12 months has th e electric, gas, oil, or water [employer] threatened to shut off services in your [...] is lower risk 4 03/05/2023 Data from: https://www.neighborhoodatlas.medicine.[facility]/. Last address used for calculation [address] 03/05/2023 Comments No [...] 10:00 AM EDT Hospital Encounter Admitting 9500 [place] [address] Yuan Miller MD, PhD 9500 [place] [address] Nausea and vomiting, unspecified vomiting type [R11.2], H/O bariatric surgery [Z98.84], Jejunostomy tube fell out [T85.528A] 04/10/2025 10:00 AM EDT - 04/10/2025 12:00 PM EDT Surgery Admitting 9500 [place] [address] Yuan Miller MD, PhD [address] [place] [phone] LAPAROSCOPIC JEJUNOSTOMY 04/19/2025 11:00 AM EDT [facility] Neurological Caodaism [address] [place] [address] Joann Loera APRN.LUMBER STACKER OPERATOR [address] [place] [phone] Cognitive movement issues 04/21/2025 8:30 AM EDT [facility] Nutrition Therapy [address] [address] Tiffany Banks, RD 9500 [place] [address] f/u TF forula tolerance and hydration 05/18/2025 9:00 AM EDT [facility] General Surgery 9299 [place] [address] Michael Mora PA-C 9500 [place] [address] f/u with michael mora in 2 wks 05/29/2025 9:00 AM EDT [facility] Gastroenterology [address] [address] Johanna Martinez MD [facility] [address] [place] [address] 3 month follow up 06/28/2025 10:00 AM EDT [facility] Neurology Pain [address] [place] [address] [place] [address] [place], [place] [phone] Follow up for pain Scheduled Procedures Name Priority Associated Diagnoses Date/Ti me LAPAROSCOPIC JEJUNOSTOMY Nausea and vomiting, unspecified vomiting type H/O bariatric surgery Jejunostomy tube fell out 04/10/2025 10:00 AM EDT documented as of this encounter Visit Diagnoses Not on filedocumented in this encounter Care Teams Car Coupler Relationship Specialty Start Date End Date Shlomo Hu II, MD 112 [facility] 110 [place] [address] PCP - General Internal Medicine 10/06/23 Jacob Sharp [address] [place] [phone] Referring 04/30/[address] [place] [phone] Registered Dietitian Nutrition 06/24/[address]00 [place] [address] Registered Dietitian Nutrition 08/27/23 Yuan Miller MD, PhD 9500 [place] [address] Surgeon General Surgery 02/03/24 documented as of this encounter
--- OUTSIDE RECORDS SUMMARY | 2025-04-09 11:52 | XMS_ITS | Encounter Summary ---
Author Organization [facility] Address [address] [place] [address] Care Team Providers Care Cello Teacher Name Role Phone Ruiz Sean Mona GALVEZ Primary Care Provider [phone] Jacob Sharp Unavailable Rasheeda Newton RD Unavailable [phone] Unavailable [phone] Fritz HENDERSON MD, Shlomo Momin Primary Care Provider [phone] Yuan Miller MD, PhD Unavailable [phone] Source Comments In the event this information is protected by the Federal Confidentiality of Alcohol and Drug AbusePatient Records regulations: The Federal rules restrict any use of the information to criminally investigate or prosecute any alcohol or drug abuse patient.[facility] Encounter Details Date Type Department Care Team (Late st Contact Info) Description 09/29/2023 Patient Msg Gastroenterology [address] [phone] Provider, Ccf Please call to schedule Social [...] lower risk 4 03/05/2023 Data from: https://www.neighborhoodatlas.medicine.[facility].edu/. Last address used for calculation [address] 270 03/05/2023 Comments [...] 04/10/2025 10:00 AM EDT Hospital Encounter Admitting [address] [place] [address] Yuan Miller [place], [place] [address] [place], [place] [phone] Nausea and vomiting, unspecified vomiting type [R11.2], H/O bariatric surgery [Z98.84], Jejunostomy tube fell out [T85.528A] 04/10/2025 10:00 AM EDT - 04/10/2025 12:00 PM EDT Surgery Admitting 9500 [place] [address] Yuan Miller MD, PhD [address] [phone] LAPAROSCOPIC JEJUNOSTOMY 04/19/2025 11:00 AM EDT [facility] Neurological Presybeterian [address] [id number] Joann Loera APRN.INTEGRATED CIRCUIT LAYOUT DESIGNER [address] [phone] Cognitive movement issues 04/21/2025 8:30 AM EDT [facility] Nutrition Therapy [address] [phone] Tiffany Banks, RD [address] [id number] f/u TF forula tolerance and hydration 05/18/2025 9:00 AM EDT [facility] General Surgery [address] [phone] Michael Mora PA-C 9500 [place] [address] f/u with michael mora in 2 wks 05/29/2025 9:00 AM T [facility] Gastroenterology [address] [phone] Johanna Martinez MD [facility] [address] [place], [place] [address] 3 month follow up 06/28/2025 10:00 AM EDT [facility] Neurology Pain [address] [phone] [place] [address] [address] [id number] Follow up for pain Scheduled Procedures Name [...] documented as of this encounter Care Teams Cello Teacher Relationship Specialty [place] [address] [place] [address] PCP - General Family Medicine 07/09/12 10/05/23 Shlomo Hu II, MD [address] [place] [address] [place] [address] PCP - General Internal Medicine 10/06/23 Jacob Sharp [address] [place] [address] Referring 04/30/[address] [place] [address] Registered Dietitian Nutrition 06/24/[address]00 [place] [address] Registered Dietitian Nutrition 08/27/23 Yuan Miller MD, PhD [address] [phone] Surgeon General Surgery 02/03/24 documented as of this encounter
--- OUTSIDE RECORDS SUMMARY | 2025-04-09 11:52 | XMS_ITS | Encounter Summary ---
Author Organization [facility] Address [facility] [place] [address] Care Team Providers Care Global Climate Change Researcher Name Role Phone Jacob Sharp Unavailable Rasheeda Newton RD Unavailable [phone] Unavailable [phone] Fritz HENDERSON MD, Shlomo B Primary Care Provider [phone] Yuan Miller MD, PhD Unavailable [phone] Source Comments In the event this information is protected by the Federal Confidentiality of Alcohol and Drug AbusePatient Records regulations: The Federal rules restrict any use of the information to criminally investigate or prosecute any alcohol or drug abuse patient.[facility] Encounter Details Date Type Department Care Team (Late st Contact Info) Description 11/16/2023 Get Medical Advice Gastroenterology [address] [phone] Magaly Andrade MD 950 [place] [address] Tests Social History Tobacco Use [...] [place] [facility] (including now)? No 08/10/2023 Area Deprivation Index Answer Date Reagan rded National Score (1-100), lower number is lower ri sk 63 03/05/2023 State Score (1-10), lower number is lower risk 4 03/05/2023 Data from: https://www.neighborhoodatlas.medicine.[facility].edu/. Last address used for calculation [address] [...] 04/10/2025 10:00 AM EDT Hospital Encounter Admitting [address] [place] [address] Yuan Miller MD, PhD [address] [place] [address] Nausea and vomiting, unspecified vomiting type [R11.2], H/O bariatric surgery [Z98.84], Jejunostomy tube fell out [T85.528A] 04/10/2025 10:00 AM EDT - 04/10/2025 12:00 PM EDT Surgery Admitting 9500 [place] [address] Yuan Miller MD, PhD 9500 [place] [address] LAPAROSCOPIC JEJUNOSTOMY 04/19/2025 11:00 AM EDT [facility] Neurological Mandaeism [address] [phone] Joann Loera APRN.OVERAGE SHORTAGE AND DAMAGE CLERK [address] [phone] Cognitive movement issues 04/21/2025 8:30 AM EDT [facility] Nutrition Therapy [address] [phone] Tiffany Banks, RD 9500 [place] [address] f/u TF forula tolerance and hydration 05/18/2025 9:00 AM EDT [facility] General Surgery 93 [place] [address] Michael Mora PA-C [address] [phone] f/u with michael mora in 2 wks 05/29/2025 9:00 AM T [facility] Gastroenterology [address] [phone] Johanna Martinez MD [facility] [address] [place], [place] [address]06 3 month follow up 06/28/2025 10:00 AM EDT [facility] Neurology Pain [address] [phone] [place] [address] [address] [phone] Follow up for pain Scheduled Procedures Name [...] documented as of this encounter Care Teams Global Climate Change Researcher Relationship Specialty Start Date End Date Shlomo Hu II, MD [address] [facility] 110 [place] [address] PCP - General Internal Medicine 10/06/23 Jacob Sharp [address] [address] [phone] Referring 04/30/[address] [place] [address] Registered Dietitian Nutrition 06/24/[address] 7936 [place] [address] Registered Dietitian Nutrition 08/27/23 Yuan Miller MD, PhD 1750 [place] [address] Surgeon General Surgery 02/03/24 documented as of this encounter
--- OUTSIDE RECORDS SUMMARY | 2025-04-09 11:52 | XMS_ITS | Encounter Summary ---
Author Organization [facility] Address [address] [place] [address] Care Team Providers Care Security Solutions Architect Name Role Phone Jacob Sharp Unavailable Rasheeda Newton RD Unavailable [phone] Unavailable [phone] Fritz HENDERSON MD, Shlomo B Primary Care Provider [phone] Yuan Miller MD, PhD Unavailable [phone] Source Comments In the event this information is protected by the Federal Confidentiality of Alcohol and Drug AbusePatient Records regulations: The Federal rules restrict any use of the information to criminally investigate or prosecute any alcohol or drug abuse patient.[facility] Encounter Details Date Type Department Care Team (Late st Contact Info) Description 11/04/2023 Get Medical Advice Gastroenterology [address] [phone] Johanna Martinez MD [facility] [address] [phone] test Social History Tobacco Use Types Packs/Day [...] slept in a prison (including now)? No 08/10/2023 Area Deprivation Index [...] Travel Start Travel End [place] 03/18/2025 03/26/2025 documented as of this encounter [...] 04/10/2025 10:00 AM EDT Hospital Encounter Admitting [address] [place] [address] Yuan Miller MD, PhD [facility]0 [place] [address] Nausea and vomiting, unspecified vomiting type [R11.2], H/O bariatric surgery [Z98.84], Jejunostomy tube fell out [T85.528A] 04/10/2025 10:00 AM EDT - 04/10/2025 12:00 PM EDT Surgery Admitting 9500 [place] [address] Yuan Miller MD, PhD [address] [phone] LAPAROSCOPIC JEJUNOSTOMY 04/19/2025 11:00 AM EDT [facility] Neurological Shinto [address] [place] [address] Joann Loera APRN.FINAL INSPECTOR BALANCE WHEEL [address] [phone] Cognitive movement issues 04/21/2025 8:30 AM EDT [facility] Nutrition Therapy [address] [phone] Tiffany Banks, RD 9500 [place] [address] f/u TF forula tolerance and hydration 05/18/2025 9:00 AM EDT [facility] General Surgery 9300 [place] [address] Michael Mora PA-C [address] [phone] f/u with michael mora in 2 wks 05/29/2025 9:00 AM T [facility] Gastroenterology [address] [phone] Johanna Martinez MD [facility] [address] [place], [place] [address]47[address] 3 month follow up 06/28/2025 10:00 AM EDT [facility] Neurology Pain [address] [address] [phone] [place] [address] [address] [phone] Follow up for pain Scheduled Procedures Name [...] documented as of this encounter Care Teams Security Solutions Architect Relationship Specialty Start Date End Date Shlomo Hu II, MD [address] [facility] 110 [place] [address] PCP - General Internal Medicine 10/06/23 Jacob Sharp [address] [phone] Referring 04/30/[address] [place] [phone] Registered Dietitian Nutrition 06/24/[address] 9500 [place] [address] Registered Dietitian Nutrition 08/27/23 Yuan Miller MD, PhD 9500 [place] [address] Surgeon General Surgery 02/03/24 documented as of this encounter
--- OUTSIDE RECORDS SUMMARY | 2025-04-09 11:52 | XMS_ITS | Encounter Summary ---
Author Organization [facility] Address [address] [place] [address] Care Team Providers Care Epic Cupid Specialists Name Role Phone Jacob hSarp Unavailable Rasheeda Newton RD Unavailable [phone] Unavailable [phone] Fritz HENDERSON MD, Shlomo Momin Primary Care Provider [phone] Yuan Miller MD, PhD Unavailable [phone] Source Comments In the event this information is protected by the Federal Confidentiality of Alcohol and Drug AbusePatient Records regulations: The Federal rules restrict any use of the information to criminally investigate or prosecute any alcohol or drug abuse patient.[facility] Encounter Details Date Type Department Care Team (Late st Contact Info) Description 11/20/2023 Patient Msg General Surgery [address] [phone] Provider, Ccf Appointment rescheduled Social History Tobacco [...] lower risk 4 03/05/2023 Data from: https://www.neighborhoodatlas.medicine.[facility].edu/. Last address used for calculation [address] 270 03/05/2023 Comments No [...] 04/10/2025 10:00 AM EDT Hospital Encounter Admitting [facility]0 [place] [address] Yuan Miller MD, PhD [address] [place] [address] Nausea and vomiting, unspecified vomiting type [R11.2], H/O bariatric surgery [Z98.84], Jejunostomy tube fell out [T85.528A] 04/10/2025 10:00 AM EDT - 04/10/2025 12:00 PM EDT Surgery Admitting [facility]0 [place] [address] Yuan Miller MD, PhD [address] [phone] LAPAROSCOPIC JEJUNOSTOMY 04/19/2025 11:00 AM EDT [facility] Neurological Alevism 9300 [place] [address] Joann Loera APRN.ROLL OUT MANAGER 9500 [place] [address] Cognitive movement issues 04/21/2025 8:30 AM EDT [facility] Nutrition Therapy [address] [phone] Tiffany Banks, RD [address] [phone] f/u TF forula tolerance and hydration 05/18/2025 9:00 AM EDT [facility] General Surgery [address] 6277206 Michael Mora PA-C [address] [phone] f/u with michael mora in 2 wks 05/29/2025 9:00 AM EDT [facility] Gastroenterology [address] [phone] Johanna Martinez MD [facility] [address] 6016406 3 month follow up 06/28/2025 10:00 AM EDT [facility] Neurology Pain [address] [phone] [place] [address] [address] [phone] Follow up for pain Scheduled Procedures Name [...] documented as of this encounter Care Teams Epic Cupid Specialists Relationship Specialty Start Date End Date Shlomo Hu II, MD [address] [facility] 110 [place] [address] PCP - General Internal Medicine 10/06/23 Jacob Sharp [address] [place] [address] Referring 04/30/[address] [place] [phone] Registered Dietitian Nutrition 06/24/[address] [facility] [place] [address] Registered Dietitian Nutrition 08/27/23 Yuan Miller MD, PhD [facility]0 [place], [place] [address]5 Surgeon General Surgery 02/03/24 documented as of this encounter
--- OUTSIDE RECORDS SUMMARY | 2025-04-09 11:52 | XMS_ITS | Encounter Summary ---
Author Organization [facility] Address [address] [place] [address] Care Team Providers Care Solutions Manager Name Role Phone Jacob Sharp Unavailable Rasheeda Newton RD Unavailable [phone] Unavailable [phone] Fritz HENDERSON MD, Shlomo Momin Primary Care Provider [phone] Yuan Miller MD, PhD Unavailable [phone] Source Comments In the event this information is protected by the Federal Confidentiality of Alcohol and Drug AbusePatient Records regulations: The Federal rules restrict any use of the information to criminally investigate or prosecute any alcohol or drug abuse patient.[facility] Encounter Details Date Type Department Care Team (Late st Contact Info) Description 02/15/2025 Get Medical Advice PAIN [place] [address] [address] [facility] [address] [place] [address] Johann Echeverria MD [address] [place] [address] [address] [place], [place] [phone] Medication Social History Tobacco Use Types Packs/Day Years Used Date Smoking Tobacco: Never Smokeless Tobacco: Never Alcohol Use Standard Drinks/Week Comments Not Currently 0 (1 standard drink = 0.6 oz pur e alcohol) [facility] Utilities Answer Date Recorded In [...] in a mcfp (including now)? No 02/16/2024 Housing Stability Vital [...] living in a mcfp (including now)? No 10/18/2024 Area Deprivation Index Answer Date Reagan rded National Score (1-100), lower number is lower ri sk 63 03/05/2023 State Score (1-10), lower number is lower risk 4 03/05/2023 Data from: https://www.neighborhoodatlas.[facility]/. Last address used for calculation [address] [...] 10:00 AM EDT Hospital Encounter Admitting 9500 [place] [address] Yuan Miller MD, PhD [address] [phone] Nausea and vomiting, unspecified vomiting type [R11.2], H/O bariatric surgery [Z98.84], Jejunostomy tube fell out [T85.528A] 04/10/2025 10:00 AM EDT - 04/10/2025 12:00 PM EDT Surgery Admitting [address] [phone] Yuan Miller MD, PhD [address] [phone] LAPAROSCOPIC JEJUNOSTOMY 04/19/2025 11:00 AM EDT [facility] Neurological Anglican [address] [phone] Joann Loera APRN.HEALTH OUTCOMES LIAISON [address] [phone] Cognitive movement issues 04/21/2025 8:30 AM EDT [facility] Nutrition Therapy [address] [address] Tiffany Banks, RD [address] [place] [address] [phone] f/u TF forula tolerance and hydration 05/18/2025 9:00 AM EDT [facility] General Surgery 9300 [place] [address] Michael Mora PA-C 9500 [place] [address] f/u with michael mora in 2 wks 05/29/2025 9:00 AM EDT [facility] Gastroenterology [address] [phone] Johanna Martinez MD [facility] [address] 8417906 3 month follow up 06/28/2025 10:00 AM EDT [facility] Neurology Pain [address] [address] 6818806 [place] [address] [place], [place] [phone] Follow up for pain Scheduled Procedures Name Priority Associated Diagnoses Date/Ti me LAPAROSCOPIC JEJUNOSTOMY Nausea and vomiting, unspecified vomiting type H/O bariatric surgery Jejunostomy tube fell out 04/10/2025 10:00 AM EDT documented as of this encounter Visit Diagnoses Not on filedocumented in this encounter Care Teams Solutions Manager Relationship Specialty Start Date End Date Shlomo Hu II, MD [address] [place] [address] 110 [place] [address] PCP - General Internal Medicine 10/06/23 Jacob Sharp [address] [address] [phone] Referring 04/30/[address] [phone] Registered Dietitian Nutrition 06/24/[address] [facility]0 [place] [phone] Registered Dietitian Nutrition 08/27/23 Yuan Miller MD, PhD [address] [phone] Surgeon General Surgery 02/03/24 documented as of this encounter
--- OUTSIDE RECORDS SUMMARY | 2025-04-09 11:52 | XMS_ITS | Encounter Summary ---
Author Organization [facility] Address [address] [place] [address] Care Team Providers Care Coater Helper Name Role Phone Shlomo Hu MD Primary Care Provider [phone] Thursday, Toya DIE TURNER Unavailable [phone] Claribel Scott RN Unavailable [phone] Marsh, Jess DIE TURNER Unavailable Esthela Tesfaye RACK PUSHER Unavailable [phone] Encounter Details Date Type Department Care Team (Late st Contact Info) Description 10/05/2024 Clinisync Result Encounter [facility] External Department Unsolicited Rommel Remy, EMPLOYMENT PROGRAMS ANALYST [address] [place] [address] [place] [address] Social History Tobacco Use Types [...] Recorded Patient Health Questionnaire-2 Score 2 09/19/2024 [facility] of Occupat ional Health [...] 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 Not on file Not on file documented as of this encounter Plan of Treatment Upcoming Encounters Date Type Department Care Team (Late st Contact Info) Description 04/20/2025 3:00 PM EDT Office Visit [facility] [address] [facility] 120 [place] [phone] Sonny Rodriguez, DPM [address] [address] 05/04/2025 2:50 PM EDT Office Visit [facility] [address] [facility] 120 [place] [phone] Sonny Rodriguez, DPM [address] [address] documented as of this encounter Procedures Procedure Name Priority Date/Time Associated Diagnosis Comments XR FOOT LT MIN 3V 10/05/2024 12: 02 AM EST documented in this encounter Results * XR FOOT LT MIN 3V (10/05/2024 12:02 AM EST) Anatomical Region Laterality Modality Other 10/05/2024 12:0 2 AM EST Narrative 10/05/2024 12:04 AM EST [address] [address] XRay Report Signed Patient: DAWSON TAVERAS MR#: [id number] : 1975 Acct:[id number] Age/Sex: 49 / F ADM Date: 10/04/24 Loc: RAD Attending Dr: ROMMEL REMY Ordering Physician: ROMMEL REMY Date of Service: 10/04/24 Procedure(s): XR foot LT min 3V Accession Number(s): [id number] cc: SHLOMO HU ; ROMMEL REMY [address] [address] Patient Name: DAWSON TAVERAS MRN: [id number] date: 1975 Sex: F Assigned Patient Location: RAD Current Patient Location: RAD Accession/Order Number: [id number] Exam Date: 10/04/2024 11:00 Report Date: 10/05/2024 [...] Signed By: 10/05/24 0004 DD/ 0002 TD/TT: Shotgun Shell Assembly Machine Adjuster: Procedure Note Radiology, Radiologist, MD - 10/05/2024 [place] [address] XRay Report Signed Patient: DAWSON TAVERAS R#: [id number] : 1975Acct:[id number] Age/Sex: 49 / FADM Date: 10/04/24 Loc: [facility] Attending Dr: ROMMEL REMY Ordering Physician: ROMMEL REMY Date of Service: 10/04/24 Procedure(s): XR foot LT min 3V Accession Number(s): [id number] cc: SHLOMO HU ; ROMMEL REMY [address] [place] [address] Patient Name: DAWSON TAVERAS MRN: [id number] date: 1975 Sex: F Assigned Patient Location: [facility] Current Patient Location: [facility] Accession/Order Number: [id number] Exam Date: 10/04/2024 11:00 Report Date: 10/05/2024 [...] M.A. Signed By:10/05/24 0004 DD/ 0002 TD/TT: Shotgun Shell Assembly Machine Adjuster: us Rommel Remy EMPLOYMENT PROGRAMS ANALYST [facility] Final Resu lt documented in this encounter Visit Diagnoses Not on filedocumented in this encounter Additional Health Concerns Assessment Noted Time PHQ-9 Depression Total Score: 18 024 9:42 AM EDT documented as of this encounter Care Teams Coater Helper Relationship Specialty Start Date End Date Shlomo Hu MD [address] [facility] 110 [place] [address] PCP - General Internal Medicine 02/15/23ThursdayToya LPN [address] [place] [address] Licensed Practical Nurse Family Medicine 01/19/24 10/21/24 Claribel Scott, PIETRO [address] [place] [address] Licensed Practical Nurse Family Medicine 10/21/24 12/06/24 Jess Marsh LPN [address] [facility] 110 [place] [address] 12/06/24 Esthela Tefsaye LSW [address] [place] [address] Railroad Track Mechanic Family Medicine 02/03/25 documented as of this encounter
--- OUTSIDE RECORDS SUMMARY | 2025-04-09 11:52 | XMS_ITS | Encounter Summary ---
Author Organization [facility] Address [address] [facility] [place] [address] Care Team Providers Care Wallpaper Cleaner Name Role Phone Shlomo Hu MD Primary Care Provider [phone] Thursday, Toya COASTAL/HARBOR DEFENSE OFFICER Unavailable [phone] Claribel Scott RN Unavailable Marsh, Jess COASTAL/HARBOR DEFENSE OFFICER Unavailable Esthela Tesfaye BODY SHOP TECHNICIAN Unavailable Encounter Details Date Type Department Care Team (Late st Contact Info) Description 10/18/2024 Abstract [facility] [place] [facility] [address] [facility] 110 [place] [address] Shlomo Hu MD [address] [facility] 110 [place] [address] Social History Tobacco Use Types Packs/Day Years [...] do you attend chur or evangelical services? 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 Not on file Not on file documented as of this encounter Plan of Treatment Upcoming Encounters Date Type Department Care Team (Late st Contact Info) Description 04/20/2025 3:00 PM EDT Office Visit [facility] [address] [place] [address] [place] [address] Sonny Rodriguez, DPM [address] [address] 05/04/2025 2:50 PM EDT Office Visit [facility] [address] [place] [address] [place] [address] Sonny Rodriguez, DPM [address] [address] documented as of this encounter Visit Diagnoses Not on filedocumented in this encounter Additional Health Concerns Assessment Noted Time PHQ-9 Depression Total Score: 18 024 9:42 AM EDT documented as of this encounter Care Teams Wallpaper Cleaner Relationship Specialty Start Date End Date Shlomo Hu MD [address] [place] [address] [place] [address] PCP - General Internal Medicine 02/15/23ThursdayToya LPN [address] [place] [address] Licensed Practical Nurse Family Medicine 01/19/24 10/21/24 Claribel Scott, RN 14[address] [place] [address] Licensed Practical Nurse Family Medicine 10/21/24 12/06/24 Jess Marsh LPN [address] [place] [address] [place] [address] 12/06/24 Esthela Tesfaye LSW [address] [place] [address] Operating Room Orderly Family Medicine 02/03/25 documented as of this encounter
--- OUTSIDE RECORDS SUMMARY | 2025-04-09 11:52 | XMS_ITS | Encounter Summary ---
Author Organization [facility] Address [address] [place] [address] Care Team Providers Care Knot Picker Cloth Name Role Phone Jacob Sharp Unavailable Rasheeda Newton RD Unavailable [phone] Unavailable [phone] Fritz HENDERSON MD, Shlomo B Primary Care Provider [phone] Yuan Miller MD, PhD Unavailable [phone] Source Comments In the event this information is protected by the Federal Confidentiality of Alcohol and Drug AbusePatient Records regulations: The Federal rules restrict any use of the information to criminally investigate or prosecute any alcohol or drug abuse patient.[facility] Encounter Details Date Type Department Care Team (Late st Contact Info) Description 01/17/2025 Patient [facility] HB-[address] [place] [address] Moraima Araya RPh At your next appointment, choose [facility]. Social History Tobacco Use Types Packs/Day Years Used Date Smoking Tobacco: Never Smokeless Tobacco: Never Alcohol Use Standard Drinks/Week Comments Not Currently 0 (1 standard drink = 0.6 oz pur e alcohol) [facility] Utilities Answer Date Recorded In the past 12 months has th e evocatal, gas, oil, or water company threatened to [...] in the past 12 m [facility], were you homeless or living in a fpc (including now)? No 10/18/2024 Area Deprivation Index Answer Date Reagan rded National Score (1-100), lower number is lower ri sk 63 03/05/2023 State Score (1-10), lower number is lower risk 4 03/05/2023 Data from: https://www.neighborhoodatlas.medicine.[facility]/. Last address used for calculation [address] [...] file Travel History Travel Start Travel End [place] 03/18/2025 03/26/2025 documented as of this encounter [...] 10:00 AM EDT Hospital Encounter Admitting 9500 [place] [address] Yuan Miller MD, PhD 9500 [place] [address] Nausea and vomiting, unspecified vomiting type [R11.2], H/O bariatric surgery [Z98.84], Jejunostomy tube fell out [T85.528A] 04/10/2025 10:00 AM EDT - 04/10/2025 12:00 PM EDT Surgery Admitting [address] [place] [id number] Yuan Miller MD, PhD [address] [place] [id number] LAPAROSCOPIC JEJUNOSTOMY 04/19/2025 11:00 AM EDT [facility] Neurological Faith 9300 [place] [address] Joann Loera, RAPIER INSERTION LOOM FIXER.CUSTOMER CARE TEAM COACH [address] [place] [id number] Cognitive movement issues 04/21/2025 8:30 AM EDT [facility] Nutrition Therapy [address] [address] Tiffany Banks, RD 9500 [place] [address] f/u TF forula tolerance and hydration 05/18/2025 9:00 AM EDT [facility] General Surgery 9300 [place] [address] Michael Mora PA-C [address] [place] [id number] f/u with michael mora in 2 wks 05/29/2025 9:00 AM EDT [facility] Gastroenterology [address] [address] [facility] [address] [place] [address] 3 month follow up 06/28/2025 10:00 AM EDT [facility] Neurology Pain [address] [place] [address] [place] [address] [place], [place] [phone] Follow up for pain Scheduled Procedures Name Priority Associated Diagnoses Date/Ti me LAPAROSCOPIC JEJUNOSTOMY Nausea and vomiting, unspecified vomiting type H/O bariatric surgery Jejunostomy tube fell out 04/10/2025 10:00 AM EDT documented as of this encounter Visit Diagnoses Not on filedocumented in this encounter Care Teams Knot Picker Cloth Relationship Specialty Start Date End Date Shlomo Hu II, MD 112 [facility] 110 [place] [address] PCP - General Internal Medicine 10/06/23 Jcaob Sharp [address] [place] [address] Referring 04/30/[address] [address] Registered Dietitian Nutrition 06/24/[address] [place] [id number] Registered Dietitian Nutrition 08/27/23 Yuan Miller MD, PhD 9500 [place], [place] [phone] Surgeon General Surgery 02/03/24 documented as of this encounter
--- OUTSIDE RECORDS SUMMARY | 2025-04-09 11:52 | XMS_ITS | Encounter Summary ---
Author Organization [facility] Address [address] [place] [address] Care Team Providers Care Artificial Glass Eye Maker Name Role Phone Jacob Sharp Unavailable Rasheeda Newton RD Unavailable [phone] Unavailable [phone] Fritz HENDERSON MD, Shlomo B Primary Care Provider [phone] Yuan Miller MD, PhD Unavailable [phone] Source Comments In the event this information is protected by the Federal Confidentiality of Alcohol and Drug AbusePatient Records regulations: The Federal rules restrict any use of the information to criminally investigate or prosecute any alcohol or drug abuse patient.[facility] Encounter Details Date Type Department Care Team (Late st Contact Info) Description 11/10/2023 Get Medical Advice General Surgery 9300 [place] [address] Mark Cruz MD 2761 [place] [address] CAT Scan Requested Social History [...] slept in a half-way (including now)? No 08/10/2023 Area Deprivation Index Answer Date Reagan rded National Score (1-100), lower number is lower ri sk 63 03/05/2023 State Score (1-10), lower number is lower risk 4 03/05/2023 Data from: https://www.neighborhoodatlas.medicine.[facility].edu/. Last address used for [...] file Travel History Travel Start Travel End [place] 03/18/2025 03/26/2025 documented as of this encounter [...] 04/10/2025 10:00 AM EDT Hospital Encounter Admitting [address] [place] [address] Yuan Miller MD, PhD [address] [place] [address] Nausea and vomiting, unspecified vomiting type [R11.2], H/O bariatric surgery [Z98.84], Jejunostomy tube fell out [T85.528A] 04/10/2025 10:00 AM EDT - 04/10/2025 12:00 PM EDT Surgery Admitting 9500 [place] [address] Yuan Miller MD, PhD [address]00 [place] [address] LAPAROSCOPIC JEJUNOSTOMY 04/19/2025 11:00 AM EDT [facility] Neurological Confucianism [address] [place] [phone] Joann Loera APRN.RECRUITING TEAM LEAD [address] [place] [phone] Cognitive movement issues 04/21/2025 8:30 AM EDT [facility] Nutrition Therapy [address] [place] [phone] Tiffany Banks, RD 9500 [place] [address] f/u TF forula tolerance and hydration 05/18/2025 9:00 AM EDT [facility] General Surgery 9300 [place] [address] Michael Mora PA-C [address] [place] [phone] f/u with michael mora in 2 wks 05/29/2025 9:00 AM T [facility] Gastroenterology [address] [place] 2126306 Johanna Martinez MD [facility] [address] [place], [place] [address]40206 3 month follow up 06/28/2025 10:00 AM EDT [facility] Neurology Pain [address] [place] [phone] [place] [address] [place] [id number] Follow up for pain Scheduled Procedures Name [...] documented as of this encounter Care Teams Artificial Glass Eye Maker Relationship Specialty Start Date End Date Shlomo Hu II, MD [address] [facility] 110 [place] [address] PCP - General Internal Medicine 10/06/23 Jacob Sharp [address] [place] [id number] Referring 04/30/[address] [id number] Registered Dietitian Nutrition 06/24/[address] [facility] [place] [address] Registered Dietitian Nutrition 08/27/23 Yuan Miller MD, PhD 9500 [place] [address] Surgeon General Surgery 02/03/24 documented as of this encounter
--- OUTSIDE RECORDS SUMMARY | 2025-04-09 11:52 | XMS_ITS | Encounter Summary ---
Author Organization [facility] Address [address] [place] [address] Care Team Providers Care Director Of Community Education Name Role Phone Jacob Sharp Unavailable Rasheeda Newton RD Unavailable [phone] Unavailable [phone] Fritz HENDERSON MD, Shlomo B Primary Care Provider [phone] Yuan Miller MD, PhD Unavailable [phone] Source Comments In the event this information is protected by the Federal Confidentiality of Alcohol and Drug AbusePatient Records regulations: The Federal rules restrict any use of the information to criminally investigate or prosecute any alcohol or drug abuse patient.[facility] Reason for Visit * Reason Onset Date Comments Refill Request 02/09/2025 Encounter Details Date Type Department Care Team (Late st Contact Info) Description 02/09/2025 Refill PAIN MAGGIE COSME [address] [address] TR[address]ONG KATHERIN [address] [place], [place] [id number] Johann Echeverria MD [address] [place] [address] [place] [address] Refill Request Social History Tobacco Use Types Packs/Day Years Used Date Smoking Tobacco: Never Smokeless Tobacco: Never Alcohol Use Standard Drinks/Week Comments Not Currently 0 (1 standard drink = 0.6 oz pur e alcohol) [facility] Utilities Answer Date Recorded In [...] is lower risk 4 03/05/2023 Data from: https://www.neighborhoodatlas.medicine.[facility]/. Last address used for calculation [address] [...] file Travel History Travel Start Travel End [place] 03/18/2025 03/26/2025 documented as of this encounter [...] 10:00 AM EDT Hospital Encounter Admitting 9500 [place] [address] Yuan Miller MD, PhD [address] [place] [phone] Nausea and vomiting, unspecified vomiting type [R11.2], H/O bariatric surgery [Z98.84], Jejunostomy tube fell out [T85.528A] 04/10/2025 10:00 AM EDT - 04/10/2025 12:00 PM EDT Surgery Admitting 9500 [place] [address] Yuan Miller MD, PhD [address] [place] [phone] LAPAROSCOPIC JEJUNOSTOMY 04/19/2025 11:00 AM EDT [facility] Neurological Church 9300 [place] [address] Joann Loera APRN.TRANSFER PROFESSOR [address] [place] [phone] Cognitive movement issues 04/21/2025 8:30 AM EDT [facility] Nutrition Therapy [address] [address] Tiffany Bnaks, RD 9500 [place] [address] f/u TF forula tolerance and hydration 05/18/2025 9:00 AM EDT [facility] General Surgery 9300 [place] [address] Michael Mora PA-C 9500 [place] [address] f/u with michael mora in 2 wks 05/29/2025 9:00 AM EDT [facility] Gastroenterology [address] [place] [address] Johanna Martinez MD [facility] [address] [address] 3 month follow up 06/28/2025 10:00 AM EDT [facility] Neurology Pain [address] [place] [address] [place] [address] [place], [place] [phone] Follow up for pain Scheduled Procedures Name [...] Bariatric surgery status Pain at surgical site Nausea and vomiting, unspecified vomiting type H/O bariatric surgery Bariatric surgery status Jejunostomy tube fell out Mechanical complication of colostomy and enterostomy documented in this encounter Care Teams Director Of Community Education Relationship Specialty Start Date End Date Shlomo Hu II, MD 112 [facility] 110 [place] [address] PCP - General Internal Medicine 10/06/23 Jacob Sharp [address] [place] [address] Referring 04/30/[address] [address] Registered Dietitian Nutrition 06/24/[address]00 [place], [place] [phone] Registered Dietitian Nutrition 08/27/23 Yuan Miller MD, PhD 9500 [place] [address] Surgeon General Surgery 02/03/24 documented as of this encounter
--- OUTSIDE RECORDS SUMMARY | 2025-04-09 11:52 | XMS_ITS | Encounter Summary ---
Author Organization [facility] Address [address] [place] [address] Care Team Providers Care Lithograph Operator Name Role Phone Jacob Sharp Unavailable Rasheeda Newton RD Unavailable [phone] Unavailable [phone] Fritz HENDERSON MD, Shlomo Momin Primary Care Provider [phone] Yuan Miller MD, PhD Unavailable [phone] Source Comments In the event this information is protected by the Federal Confidentiality of Alcohol and Drug AbusePatient Records regulations: The Federal rules restrict any use of the information to criminally investigate or prosecute any alcohol or drug abuse patient.[facility] Encounter Details Date Type Department Care Team (Late st Contact Info) Description 02/15/2025 Get Medical Advice PAIN [place] [address] [address] [facility] 259 [place] [address] Johann Echeverria MD [address] [place] [address] [address] [place], [place] [phone] [employer] Social History Tobacco Use Types Packs/Day Years Used Date Smoking Tobacco: Never Smokeless Tobacco: Never Alcohol Use Standard Drinks/Week Comments Not Currently 0 (1 standard drink = 0.6 oz pur e alcohol) [facility] Utilities Answer Date Recorded In the [...] 4 03/05/2023 Data from: https://www.neighborhoodatlas.medicine.[facility]/. Last address used for calculation [address] [address] 03/05/2023 Comments No [...] file Travel History Travel Start Travel End [place] 03/18/2025 03/26/2025 documented as of this encounter [...] Donna Olea, PIETRO documented in this encounter Plan of Treatment Upcoming Encounters Date Type Department Care Team (Latest Contact Info) Description 04/10/2025 10:00 AM EDT Hospital Encounter Admitting [address] [place] [id number] Yuan Miller MD, PhD [address] [place] [phone] Nausea and vomiting, unspecified vomiting type [R11.2], H/O bariatric surgery [Z98.84], Jejunostomy tube fell out [T85.528A] 04/10/2025 10:00 AM EDT - 04/10/2025 12:00 PM EDT Surgery Admitting [address] [place] [phone] Yuan Miller MD, PhD 9500 [place] [address] LAPAROSCOPIC JEJUNOSTOMY 04/19/2025 11:00 AM EDT [facility] Neurological Synagogue 9300 [place] [address] Joann Loera APRN.BEAD MAKER 9500 [place] [address] Cognitive movement issues 04/21/2025 8:30 AM EDT [facility] Nutrition Therapy [address] [address] Tiffany Banks, RD [address]00 [place] [phone] f/u TF forula tolerance and hydration 05/18/2025 9:00 AM EDT [facility] General Surgery 9300 [place] [address] Michael Mora PA-C 9500 [place] [address] f/u with michael mora in 2 wks 05/29/2025 9:00 AM EDT [facility] Gastroenterology [address] [address] Johanna Martinez MD [facility] [address] [place] [phone] 3 month follow up 06/28/2025 10:00 AM EDT [facility] Neurology Pain [address] [place] 1982306 [place] [address] [place] [address] Follow up for pain Scheduled Procedures Name Priority Associated Diagnoses Date/Ti me LAPAROSCOPIC JEJUNOSTOMY Nausea and vomiting, unspecified vomiting type H/O bariatric surgery Jejunostomy tube fell out 04/10/2025 10:00 AM EDT documented as of this encounter Visit Diagnoses Not on filedocumented in this encounter Care Teams Lithograph Operator Relationship Specialty Start Date End Date Shlomo Hu II, MD [address] [place] [address] 110 [place] [address] PCP - General Internal Medicine 10/06/23 Jacob Sharp [address] [place] [address] Referring 04/30/[address] [place], [place] [address] Registered Dietitian Nutrition 06/24/[address] [facility]0 [place] [phone] Registered Dietitian Nutrition 08/27/23 Yuan Miller MD, PhD [address] [place] [phone] Surgeon General Surgery 02/03/24 documented as of this encounter
--- OUTSIDE RECORDS SUMMARY | 2025-04-09 11:52 | XMS_ITS | Encounter Summary ---
Author Organization [facility] Address [address] [facility] [place] [address] Care Team Providers Care General Counselor Name Role Phone Shlomo Hu MD Primary Care Provider [phone] Thursday, Toya PRE SALES TECHNICAL ENGINEER Unavailable [phone] Claribel Scott RN Unavailable Marsh, Jess PRE SALES TECHNICAL ENGINEER Unavailable Esthela Tesfaye STRATEGIC BUYER Unavailable Encounter Details Date Type Department Care Team (Late st Contact Info) Description 10/11/2024 Abstract [facility] [place] [facility] [address] 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 Not on file Not on file documented as of this encounter Plan of Treatment Upcoming Encounters Date Type Department Care Team (Late st Contact Info) Description 04/20/2025 3:00 PM EDT Office Visit [facility] [address] [place] [address] [place] [address] Sonny Rodriguez, DPM [address] [address] 05/04/2025 2:50 PM EDT Office Visit [facility] [address] [place] [address] Sonny Rodriguez, DPM [address] [address] documented as of this encounter Visit Diagnoses Not on filedocumented in this encounter Additional Health Concerns Assessment Noted Time PHQ-9 Depression Total Score: 18 024 9:42 AM EDT documented as of this encounter Care Teams General Counselor Relationship Specialty Start Date End Date Shlomo Hu MD [address] [place] [address] [place] [address] PCP - General Internal Medicine 02/15/23ThursdayToya LPN [address] [place] [address] Licensed Practical Nurse Family Medicine 01/19/24 10/21/24 Claribel Scott, RN [address] [place] [address] Licensed Practical Nurse Family Medicine 10/21/24 12/06/24 Jess Marsh LPN [address] [place] [address] 12/06/24 Esthela Tesfaye LSW [address] [place] [address] Gunnery/Ordnance Officer Family Medicine 02/03/25 documented as of this encounter
--- OUTSIDE RECORDS SUMMARY | 2025-04-09 11:52 | XMS_ITS | Encounter Summary ---
Author Organization [facility] Address [address] [place] [address] Care Team Providers Care Optical Glass Silverer Name Role Phone Jacob Sharp Unavailable Rasheeda Newton RD Unavailable [phone] Unavailable [phone] Fritz HENDERSON MD, Shlomo B Primary Care Provider [phone] Yuan Miller MD, PhD Unavailable [phone] Source Comments In the event this information is protected by the Federal Confidentiality of Alcohol and Drug AbusePatient Records regulations: The Federal rules restrict any use of the information to criminally investigate or prosecute any alcohol or drug abuse patient.[facility] Encounter Details Date Type Department Care Team (Late st Contact Info) Description 01/31/2025 Patient Msg Neurological Congregational [address] [place] [address] Tonya Acosta LISW [address] [place] [address] In home help resources Social History Tobacco Use Types Packs/Day Years Used Date Smoking Tobacco: Never Smokeless Tobacco: Never Alcohol Use Standard Drinks/Week Comments Not Currently 0 (1 standard drink = 0.6 oz pur e alcohol) [facility] Utilities Answer Date Recorded In the [...] any time in the past 12 m [facility], were you homeless or living in a skilled nursing (including now)? No 10/18/2024 Area Deprivation Index Answer Date Reagan rded National Score (1-100), lower number is lower ri sk 63 03/05/2023 State Score (1-10), lower number is lower risk 4 03/05/2023 Data from: https://www.neighborhoodatlas.medicine.[facility]/. Last address used for calculation [address] [...] file Travel History Travel Start Travel End [place] 03/18/2025 03/26/2025 documented as of this encounter [...] 10:00 AM EDT Hospital Encounter Admitting [address] [place] [phone] Yuan Miller MD, PhD [address] [place] [phone] Nausea and vomiting, unspecified vomiting type [R11.2], H/O bariatric surgery [Z98.84], Jejunostomy tube fell out [T85.528A] 04/10/2025 10:00 AM EDT - 04/10/2025 12:00 PM EDT Surgery Admitting [address] [place] [phone] Yuan Miller MD, PhD [facility] [place] [address] LAPAROSCOPIC JEJUNOSTOMY 04/19/2025 11:00 AM EDT [facility] Neurological Congregational [address]300 [place] [address] Joann Loera APRN.FENCE RIDER [address] [place] [phone] Cognitive movement issues 04/21/2025 8:30 AM EDT [facility] Nutrition Therapy [address] [address] Tiffany Banks, RD 9500 [place] [address] f/u TF forula tolerance and hydration 05/18/2025 9:00 AM EDT [facility] General Surgery 9300 [place] [address] Michael Mora PA-C [address]00 [place] [address] f/u with michael mora in 2 wks 05/29/2025 9:00 AM EDT [facility] Gastroenterology [address] [address] Johanna Martinez MD [facility]3] [address] [place], [place] [address] 3 month follow up 06/28/2025 10:00 AM EDT [facility] Neurology Pain [address] [place] 0353306 [place] [address] [place], [place] 6[address] Follow up for pain Scheduled Procedures Name Priority Associated Diagnoses Date/Ti me LAPAROSCOPIC JEJUNOSTOMY Nausea and vomiting, unspecified vomiting type H/O bariatric surgery Jejunostomy tube fell out 04/10/2025 10:00 AM EDT documented as of this encounter Visit Diagnoses Not on filedocumented in this encounter Care Teams Optical Glass Silverer Relationship Specialty Start Date End Date Shlomo Hu II, MD [address] [address] PCP - General Internal Medicine 10/06/23 Jacob Sharp [address] [place] [phone] Referring 04/30/[address]48 [place] 0120406 Registered Dietitian Nutrition 06/24/[address] [place], [place] [address] Registered Dietitian Nutrition 08/27/23 Yuan Miller MD, PhD [address] [place] [phone] Surgeon General Surgery 02/03/24 documented as of this encounter
--- OUTSIDE RECORDS SUMMARY | 2025-04-09 11:53 | XMS_ITS ---
Author Organization [facility] Address [address] [place] [address] Care Team Providers Care Emergency Dispatch Operator Name Role Phone Shlomo Hu MD Primary Care Provider [phone] Jess Marsh LPN Unavailable Esthela Tesfaye Unavailable [phone] Chronic Care Management (CCM) Status:Enrolled (Active) Start date:01/19/2024 Enrollment date:01/19/2024 Enrollment reason:Identified using hospital discharge data Overview Please assess for Care Management needs. 01/19/24, 3:52 PM - Toyathursday, [facility]- Patient gives verbal consent to be enrolled in CCM Program and understands there could be a bill for this service if her insurance changes. Case Team Name Relationship Phone Etshela MALONE [employer]er [phone] Jess Marsh LPN(Responsible Staff) [phone] Continued Care and Services Coordination
--- OUTSIDE RECORDS SUMMARY | 2025-04-09 11:53 | XMS_ITS | Encounter Summary ---
Author Organization [facility] Address [address] [facility] [place] [address] Care Team Providers Care Vp Strategic Planning Name Role Phone Shlomo Hu MD Primary Care Provider Thursday, Toya CAMPOSN Unavailable [phone] Shlomo Hu MD Unavailable [phone] Shante Kumar BOOKY-PRESS OPERATOR MEAT Unavailable Claribel Scott RN Unavailable [phone] Jess Marsh SALES FORCE ADMINISTRATOR Unavailable Esthela Tesfaye EXERCISE PHYSIOLOGY PROFESSOR Unavailable Encounter Details Date Type Department Care Team (Late st Contact Info) Description 05/31/2024 Abstract [facility] [place] [facility] [address] [facility] 110 [place] [address] Shlomo Hu MD [address] [facility] 110 [place] [address] Social History Tobacco Use Types [...] How often do you attend chur or yazdanism services? 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 Not on file Not on file documented as of this encounter Plan of Treatment Upcoming Encounters Date Type Department Care Team (Late st Contact Info) Description 04/20/2025 3:00 PM EDT Office Visit [facility] [address] [place] [address] Sonny Rodriguez, DPM 3006 [facility] 5 [place] [address] 05/04/2025 2:50 PM EDT Office Visit [facility] [address] [place] [address] Sonny Rodriguez DPM 3006 [facility] 5 [place] [address] documented as of this encounter Visit Diagnoses Not on filedocumented in this encounter Additional Health Concerns Assessment Noted Time PHQ-9 Depression Total Score: 18 024 9:42 AM EDT documented as of this encounter Care Teams Vp Strategic Planning Relationship Specialty Start Date End Date Shlomo Hu MD [address] [place] [address] PCP - General Internal Medicine 02/15/23 Shlomo Hu MD [address] [place] [address] PCP - [place] [employer] 05/15/2407/14 Shante Kumar APRN-PRESS OPERATOR MEAT [address] [place] [address] PCP - [place] [employer] 07/15/24 ThursdayToya LPN [address] [place] [address] Licensed Practical Nurse Family Medicine 01/19/24 10/21/24 Claribel Scott, PIETRO [address] [place] [address] Licensed Practical Nurse Family Medicine 10/21/24 12/06/24 Jess Marsh, DUKE 112 [facility] [address] [place] [address] 12/06/24 Esthela Tesfaye, KIRA [address] [place] [address] Manager Demand Family Medicine 02/03/25 documented as of this encounter
--- OUTSIDE RECORDS SUMMARY | 2025-04-09 11:53 | XMS_ITS | Encounter Summary ---
Author Organization [facility] Address [address] [facility] [place] [address] Care Team Providers Care Greenskeeper Supervisor Name Role Phone Shlomo Hu MD Primary Care Provider Thursday, Toya CAMPOSN Unavailable [phone] Shlomo Hu MD Unavailable [phone] Shante Kumar CERTIFIED HYPERBARIC TECHNICIAN-GROUP FITNESS MANAGER Unavailable Claribel Scott RN Unavailable Jess Marsh BUNCH BREAKER Unavailable Esthela Tesfaye LEAK DETECTOR Unavailable [phone] Encounter Details Date Type Department Care Team (Late st Contact Info) Description 06/02/2024 Abstract [facility] [place] [facility] 112 [facility] 110 [place] [address] Shlomo Hu MD 112 [facility] 110 [place] [address] Social History Tobacco Use Types [...] How often do you attend chur or amish services? 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 Not on file Not on file documented as of this encounter Plan of Treatment Upcoming Encounters Date Type Department Care Team (Late st Contact Info) Description 04/20/2025 3:00 PM EDT Office Visit [facility] [address] [place] [address] Sonny Rodriguez, DPM 3006 [facility] 5 [place] [address] 05/04/2025 2:50 PM EDT Office Visit [facility] [address] [place] [address] Sonny Rodriguez DPM 3006 [facility] 5 [place] [address] documented as of this encounter Visit Diagnoses Not on filedocumented in this encounter Additional Health Concerns Assessment Noted Time PHQ-9 Depression Total Score: 18 024 9:42 AM EDT documented as of this encounter Care Teams Greenskeeper Supervisor Relationship Specialty Start Date End Date Shlomo Hu MD [address] [place] [address] PCP - General Internal Medicine 02/15/23 Shlomo Hu MD [address] [place] [address] PCP - [place] [employer] 05/15/2407/14 Shante Kumar APRN-GROUP FITNESS MANAGER [address] [place] [address] PCP - [place] [employer] 07/15/24 ThursdayToya LPN [address] [place] [address] Licensed Practical Nurse Family Medicine 01/19/24 10/21/24 Claribel Scott, PIETRO [address] [place] [address] Licensed Practical Nurse Family Medicine 10/21/24 12/06/24 Jess Marsh, DUKE 112 [facility] [address] [place] [address] 12/06/24 Esthela Tesfaye, KIRA [address] [place] [address] Investment Associate Family Medicine 02/03/25 documented as of this encounter
--- OUTSIDE RECORDS SUMMARY | 2025-04-09 11:53 | XMS_ITS | Encounter Summary ---
Author Organization [facility] Address [facility] [place] [address] Care Team Providers Care Sports Equipment Supervisor Name Role Phone Ruiz Sean oMna GALVEZ Primary Care Provider [phone] Jacob Sharp Unavailable Rasheeda Newton RD Unavailable [phone] Unavailable [phone] Fritz HENDERSON MD, Shlomo Momin Primary Care Provider [phone] Yuan Miller MD, PhD Unavailable [phone] Source Comments In the event this information is protected by the Federal Confidentiality of Alcohol and Drug AbusePatient Records regulations: The Federal rules restrict any use of the information to criminally investigate or prosecute any alcohol or drug abuse patient.[facility] Encounter Details Date Type Department Care Team (Late st Contact Info) Description 09/15/2013 Patient Msg Medical Records [address] [place] [address] Provider, Ccf Request an Appointment Social History [...] file Travel History Travel Start Travel End [place] 03/18/2025 03/26/2025 documented as of this encounter Plan of Treatment Upcoming Encounters Date Type Department Care Team (Latest Contact Info) Description 04/10/2025 10:00 AM EDT Hospital Encounter Admitting [address] [id number] Yuan Miller MD, PhD [address] [place] [address] [id number] Nausea and vomiting, unspecified vomiting type [R11.2], H/O bariatric surgery [Z98.84], Jejunostomy tube fell out [T85.528A] 04/10/2025 10:00 AM EDT - 04/10/2025 12:00 PM EDT Surgery Admitting [address] [id number] Yuan Miller MD, PhD [address] [phone] LAPAROSCOPIC JEJUNOSTOMY 04/19/2025 11:[address] [facility] Neurological Yazidism [address] [phone] Joann Loera APRN.TELLER [address] [place] [address] [id number] Cognitive movement issues 04/21/2025 8:[address] [facility] Nutrition Therapy [address] [address] Tiffany Banks, RD [address] [place] [id number] f/u TF forula tolerance and hydration 05/18/2025 9:[address] [facility] General Surgery [address] [place] [address] [phone] Michael Mora PA-C 9500 [place] [address] f/u with michael mora in 2 wks 05/29/2025 9:[address] [facility] Gastroenterology [address] [place] [address] Johanna Martinez MD [facility] [address] [address] 3 month follow up 06/28/2025 10:[address] [facility] Neurology Pain [address] [place] [address] [place] [address] [place], [place] [phone] Follow up for pain Scheduled Procedures Name [...] 09/18/2022 8:54 AM EST COVID-19 Rule-Out 09/28/2022 09/28/202209/2809/28/2022 2:17 PM EST COVID-19 Rule-Out 01/04/2024 01/04/2024 01/04/2024 5:37 PM EDT Respiratory Rule-Out 01/04/2024 01/04/2024 024 5:37 PM EDT COVID-19 Rule-Out 04/12/2024 04/12/2024 04/12/2024 3:56 PM EDT COVID-19 Confirmed Comment:Anticipate 10 day isolation 04/12/2024 04/18/202404/14 8:51 PM EDT COVID-19 Rule-Out 04/18/2024 04/18/2024 04/18/2024 2:28 PM EDT COVID-19 Rule-Out 07/29/2024 07/29/2024 07/29/2024 7:20 PM EST documented as of this encounter Care Teams Sports Equipment Supervisor Relationship Specialty [place] [address] [place] [phone] PCP - General Family Medicine 07/09/12 10/05/23 Shlomo Hu II, MD [address] [facility] 110 [place] [address] PCP - General Internal Medicine 10/06/23 Jacob Sharp [address] [phone] Referring 04/30/[address] [place] 9430006 Registered Dietitian Nutrition 06/24/[address] [facility] [place] [address] Registered Dietitian Nutrition 08/27/23 Yuan Miller MD, PhD [address] [phone] Surgeon General Surgery 02/03/24 documented as of this encounter
--- OUTSIDE RECORDS SUMMARY | 2025-04-09 11:53 | XMS_ITS | Encounter Summary ---
Author Organization [facility] Address [facility] [place] [address] Care Team Providers Care Tile Sprayer Name Role Phone Joseph Sean Mona GALVEZ Primary Care Provider [phone] Jacob Sharp Unavailable Rasheeda Newton RD Unavailable [phone] Unavailable [phone] Fritz HENDERSON MD, Shlomo B Primary Care Provider [phone] Yuan Miller MD, PhD Unavailable [phone] Source Comments In the event this information is protected by the Federal Confidentiality of Alcohol and Drug AbusePatient Records regulations: The Federal rules restrict any use of the information to criminally investigate or prosecute any alcohol or drug abuse patient.[facility] Encounter Details Date Type Department Care Team (Late st Contact Info) Description 10/05/2023 Abstract Gastroenterology [address] [phone] Dietitian, Cgrt [address]00 [place] [address] Social History Tobacco Use Types [...] slept in a longterm (including now)? No 08/10/2023 Area Deprivation Index [...] 04/10/2025 10:00 AM EDT Hospital Encounter Admitting [address] [place] [address] Yuan Miller MD, PhD [address] [place] [address] Nausea and vomiting, unspecified vomiting type [R11.2], H/O bariatric surgery [Z98.84], Jejunostomy tube fell out [T85.528A] 04/10/2025 10:00 AM EDT - 04/10/2025 12:00 PM EDT Surgery Admitting 9500 [place] [address] Yuan Miller MD, PhD 9500 [place] [address] LAPAROSCOPIC JEJUNOSTOMY 04/19/2025 11:00 AM EDT [facility] Neurological Voodoo [address] [address] [phone] Joann Loera APRN.CLINICAL NURSE OCCUPATIONAL MEDICINE [address] [phone] Cognitive movement issues 04/21/2025 8:30 AM EDT [facility] Nutrition Therapy [address] [place] [phone] Tiffany Banks, RD 9500 [place] [address] f/u TF forula tolerance and hydration 05/18/2025 9:00 AM EDT [facility] General Surgery 93 [place] [address] Michael Mora PA-C [address] [place] [phone] f/u with michael mora in 2 wks 05/29/2025 9:00 AM T [facility] Gastroenterology [address] [place] [address] [phone] Johanna Martinez MD [facility] [address] [place], [place] [phone] 3 month follow up 06/28/2025 10:00 AM EDT [facility] Neurology Pain [address] [place] [phone] [place] [address] [place] [phone] Follow up for pain Scheduled Procedures Name [...] documented as of this encounter Care Teams Tile Sprayer Relationship Specialty [place] [address] [place] [address] PCP - General Family Medicine 07/09/12 10/05/23 Shlomo Hu II, MD [address] [facility] 110 [place] [address] PCP - General Internal Medicine 10/06/23 Jacob Sharp [address] [place] [address] Referring 04/30/[address] [place] [address] Registered Dietitian Nutrition 06/24/[address] [place], [place] [phone] Registered Dietitian Nutrition 08/27/23 Yuan Miller MD, PhD [address] [place] [address] Surgeon General Surgery 02/03/24 documented as of this encounter
--- OUTSIDE RECORDS SUMMARY | 2025-04-09 11:53 | XMS_ITS | Encounter Summary ---
Author Organization [facility] Address [address] [facility] [place] [address] Care Team Providers Care Clinical Systems Educator Name Role Phone Shlomo Hu MD Primary Care Provider [phone] Thursday, Toya CAMPOSN Unavailable [phone] Shlomo Hu MD Unavailable [phone] Shante Kumar BONE CHAR PULLER-CABLE TECHNICIAN Unavailable Claribel Scott RN Unavailable Jess Marsh TEAM DRIVER Unavailable Esthela Tesfaye FORKLIFT WHEEL LOADER Unavailable [phone] Encounter Details Date Type Department Care Team (Late st Contact Info) Description 06/02/2024 Abstract [facility] [place] [facility] 112 [facility] 110 [place] [address] Shlomo Hu MD 112 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 Not on file Not on file documented as of this encounter Plan of Treatment Upcoming Encounters Date Type Department Care Team (Late st Contact Info) Description 04/20/2025 3:00 PM EDT Office Visit [facility] [address] [place] [address] Sonny Rodriguez, DPM 3006 [facility] 5 [place] [address] 05/04/2025 2:50 PM EDT Office Visit [facility] [address] [place] [address] Sonny Rodriguez DPM 3006 [facility] 5 [place] [address] documented as of this encounter Visit Diagnoses Not on filedocumented in this encounter Additional Health Concerns Assessment Noted Time PHQ-9 Depression Total Score: 18 024 9:42 AM EDT documented as of this encounter Care Teams Clinical Systems Educator Relationship Specialty Start Date End Date Shlomo Hu MD [address] [place] [address] PCP - General Internal Medicine 02/15/23 Shlomo Hu MD [address] [place] [address] PCP - [place] [employer] 05/15/2407/14 Shante Kumar APRN-CABLE TECHNICIAN [address] [place] [address] PCP - [place] [employer] 07/15/24 ThursdayToya LPN [address] [place] [address] Licensed Practical Nurse Family Medicine 01/19/24 10/21/24 Claribel Scott, PIETRO [address] [place] [address] Licensed Practical Nurse Family Medicine 10/21/24 12/06/24 Jess Marsh, DUKE 112 [facility] [address] [place] [address] 12/06/24 Esthela Tesfaye, KIRA [address] [place] [address] Maintenance Assistant Family Medicine 02/03/25 documented as of this encounter
--- OUTSIDE RECORDS SUMMARY | 2025-04-09 11:53 | XMS_ITS | Encounter Summary ---
Author Organization [facility] Address [address] [place] [address] Care Team Providers Care Industrial Cleaner Name Role Phone Jacob Sharp Unavailable Rasheeda Newton RD Unavailable [phone] Unavailable [phone] Fritz HENDERSON MD, Shlomo B Primary Care Provider [phone] Yuan Miller MD, PhD Unavailable [phone] Source Comments In the event this information is protected by the Federal Confidentiality of Alcohol and Drug AbusePatient Records regulations: The Federal rules restrict any use of the information to criminally investigate or prosecute any alcohol or drug abuse patient.[facility] Encounter Details Date Type Department Care Team (Late st Contact Info) Description 08/02/2024 Discharge Note (enc) HOSP MAIN G100 [address] [place] [address] Kenya Ricketts RN Social History Tobacco Use Types Packs/Day Years Used Date Smoking Tobacco: Never Smokeless Tobacco: Never Alcohol Use Standard Drinks/Week Comments Not Currently 0 (1 standard drink = 0.6 oz pur e alcohol) [facility] Utilities Answer Date Recorded In the past 12 months has th e electric, gas, oil, or water Noveporter threatened to shut off services in your [...] in the past [address] [facility], were you homeless or living in a long-term (including now)? No 08/01/2024 Area Deprivation Index Answer Date Reagan rded National Score (1-100), lower number is lower ri sk 63 03/05/2023 State Score (1-10), lower number is lower risk 4 03/05/2023 Data from: https://www.neighborhoodatlas.medicine.[facility]/. Last address used for calculation [...] 10:00 AM EDT Hospital Encounter Admitting 9500 [place] [address] Yuan Miller MD, PhD [address] [place] [address] [phone] Nausea and vomiting, unspecified vomiting type [R11.2], H/O bariatric surgery [Z98.84], Jejunostomy tube fell out [T85.528A] 04/10/2025 10:00 AM EDT - 04/10/2025 12:00 PM EDT Surgery Admitting 9500 [place] [address] Yuan Miller MD, PhD [address]00 [place] [address] LAPAROSCOPIC JEJUNOSTOMY 04/19/2025 11:[address] [facility] Neurological Orthodoxy [address] [place] [address] Joann Loera APRN.APPLICATION ADMINISTRATOR 9500 [place] [address] Cognitive movement issues 04/21/2025 8:[address] [facility] Nutrition Therapy [address] [address] Tiffany Banks, RD 9500 [place] [address] f/u TF forula tolerance and hydration 05/18/2025 9:[address] [facility] General Surgery [address]99 [place] [address] Michael Mora PA-C [address]00 [place] [address] f/u with michael mora in 2 wks 05/29/2025 9:[address] [facility] Gastroenterology [address] [place] [phone] Johanna Martinez MD [facility] [address] [place] [address] 3 month follow up 06/28/2025 10:[address] [facility] Neurology Pain [address] [place] [address] [place] [address] [place] [address] Follow up for pain Scheduled Procedures Name Priority Associated Diagnoses Date/Ti me LAPAROSCOPIC JEJUNOSTOMY Nausea and vomiting, unspecified vomiting type H/O bariatric surgery Jejunostomy tube fell out 04/10/2025 10:00 AM EDT documented as of this encounter Visit Diagnoses Not on filedocumented in this encounter Care Teams Industrial Cleaner Relationship Specialty Start Date End Date Shlomo Hu II, MD [address] [place] [address] PCP - General Internal Medicine 10/06/23 Jacob Sharp [address] [place] [phone] Referring 04/30/[address] [place], [place] [phone] Registered Dietitian Nutrition 06/24/[address]00 [place] [address] Registered Dietitian Nutrition 08/27/23 Yuan Miller MD, PhD [address] [place] [address] Surgeon General Surgery 02/03/24 documented as of this encounter
--- OUTSIDE RECORDS SUMMARY | 2025-04-09 11:53 | XMS_ITS | Encounter Summary ---
Author Organization [facility] Address [address] [facility] [place] [address] Care Team Providers Care Archivist Name Role Phone Shlomo Hu MD Primary Care Provider Thursday, Toya CAMPOSN Unavailable [phone] Shlomo Hu MD Unavailable [phone] Shante Kumar ENGINEERING SPECIALIST-PASTORAL ASSISTANT Unavailable Clariebl Scott RN Unavailable Jess Marsh LUNCHEONETTE MANAGER Unavailable Esthela Tesfaye HEAD OF BUSINESS DEVELOPMENT Unavailable Encounter Details Date Type Department Care Team (Late st Contact Info) Description 05/26/2024 Abstract [facility] [place] [facility] 112 [facility] 110 [place] [address] Shlomo Hu MD 112 [facility] 110 [place] [address] Social History Tobacco Use Types [...] How often do you attend chur or jain services? 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 Not on file Not on file documented as of this encounter Plan of Treatment Upcoming Encounters Date Type Department Care Team (Late st Contact Info) Description 04/20/2025 3:00 PM EDT [facility] Visit [facility] [address] [place] [address] Sonny Rodriguez, DPM 3006 [facility] 5 [place] [address] 05/04/2025 2:50 PM EDT Office Visit [facility] [address] [place] [address] Sonny Rodriguez DPM 3006 [facility] 5 [place] [address] documented as of this encounter Visit Diagnoses Not on filedocumented in this encounter Additional Health Concerns Assessment Noted Time PHQ-9 Depression Total Score: 18 024 9:42 AM EDT documented as of this encounter Care Teams Archivist Relationship Specialty Start Date End Date Shlomo Hu MD [address] [place] [address] PCP - General Internal Medicine 02/15/23 Shlomo Hu MD [address] [place] [address] PCP - [place] [employer] 05/15/2407/14 Shante Kumar APRN-PASTORAL ASSISTANT [address] [place] [address] PCP - [place] [employer] 07/15/24 ThursdayToya LPN [address] [place] [address] Licensed Practical Nurse Family Medicine 01/19/24 10/21/24 Claribel Scott, PIETRO [address] [place] [address] Licensed Practical Nurse Family Medicine 10/21/24 12/06/24 Jess Marsh, DUKE 112 [facility] [address] [place] [address] 12/06/24 Esthela Tesfaye, KIRA [address] [place] [address] X Ray Technologist Family Medicine 02/03/25 documented as of this encounter
--- OUTSIDE RECORDS SUMMARY | 2025-04-09 11:53 | XMS_ITS | Encounter Summary ---
Author Organization [facility] Address [address] [place] [address] Care Team Providers Care Timber Repairer Name Role Phone Sean Ruiz Mona GALVEZ Primary Care Provider [phone] Jacob Sharp Unavailable Rasheeda Newton RD Unavailable [phone] Unavailable [phone] Fritz HENDERSON MD, Shlomo B Primary Care Provider [phone] Yuan Miller MD, PhD Unavailable [phone] Source Comments In the event this information is protected by the Federal Confidentiality of Alcohol and Drug AbusePatient Records regulations: The Federal rules restrict any use of the information to criminally investigate or prosecute any alcohol or drug abuse patient.[facility] Encounter Details Date Type Department Care Team (Late st Contact Info) Description 09/17/2023 Get Medical Advice Gastroenterology [address] [id number] Johanna Martinez MD [facility] [address] [address] Nausea, vomiting and diarrhea Social [...] is lower risk 4 03/05/2023 Data from: https://www.neighborhoodatlas.medicine.[facility].edu/. Last address used for calculation [address] [place] [address] 03/05/2023 Comments No Sex and Gender Information [...] 04/10/2025 10:00 AM EDT Hospital Encounter Admitting [facility]5 [place] [address] Yuan Miller MD, PhD 9500 [place] [address] Nausea and vomiting, unspecified vomiting type [R11.2], H/O bariatric surgery [Z98.84], Jejunostomy tube fell out [T85.528A] 04/10/2025 10:00 AM EDT - 04/10/2025 12:00 PM EDT Surgery Admitting 9500 [place] [address] Yuan Miller MD, PhD 9500 [place] [address] LAPAROSCOPIC JEJUNOSTOMY 04/19/2025 11:00 AM EDT [facility] Neurological Religious [address] [place] [address] Joann Loera, CONDUCTOR ROAD FREIGHT.ENVIRONMENTAL ECONOMIST 9500 [place] [address] Cognitive movement issues 04/21/2025 8:30 AM EDT [facility] Nutrition Therapy [address] [id number] Tiffany Banks, RD [address] [address] [id number] f/u TF forula tolerance and hydration 05/18/2025 9:00 AM EDT [facility] General Surgery [address] [phone] Michael Mora PA-C 9500 [place] [address] f/u with michael mora in 2 wks 05/29/2025 9:00 AM EDT [facility] Gastroenterology [address] [id number] Johanna Martinez MD [facility] [address] [place], [place] [id number] 3 month follow up 06/28/2025 10:00 AM EDT [facility] Neurology Pain [address] [address] [phone] [place] [address] [address] [address] [id number] Follow up for pain Scheduled Procedures Name [...] documented as of this encounter Care Teams Timber Repairer Relationship Specialty [place] [address] [place] [address] PCP - General Family Medicine 07/09/12 10/05/23 Shlomo Hu II, MD [address] [address] PCP - General Internal Medicine 10/06/23 Jacob Sharp [address] [place] [address] Referring 04/30/[address] [place] [address] Registered Dietitian Nutrition 06/24/[address]00 [place] [address] Registered Dietitian Nutrition 08/27/23 Yuan Miller MD, PhD [facility]0 [place] [address] Surgeon General Surgery 02/03/24 documented as of this encounter
--- OUTSIDE RECORDS SUMMARY | 2025-04-09 11:53 | XMS_ITS | Encounter Summary ---
Author Organization [facility] Address [address] [facility] [place] [address] Care Team Providers Care Tip Finisher Name Role Phone Shlomo Hu MD Primary Care Provider Thursday, Toya CAMPOSN Unavailable [phone] Shlomo Hu MD Unavailable [phone] Shante Kumar FLAT LOCK OPERATOR-RN MIDWIFE Unavailable Claribel Scott RN Unavailable Jess Marsh OPERATOR RECEPTIONIST Unavailable Esthela Tesfaye CONTACT LENS FLASHING PUNCHER Unavailable Encounter Details Date Type Department Care Team (Late st Contact Info) Description 05/26/2024 Abstract [facility] [place] [facility] 112 [facility] 110 [place] [address] Shlomo Hu MD 112 [facility] [place] [facility] 110 [place] [address] Social History Tobacco Use Types [...] Recorded Patient Health Questionnaire-2 Score 6 05/10/2024 [facility] - [...] 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 Not on file Not on file documented as of this encounter Plan of Treatment Upcoming Encounters Date Type Department Care Team (Late st Contact Info) Description 04/20/2025 3:00 PM EDT Office Visit [facility] [address] [place] [address] Sonny Rodriguez, DPM 3006 [facility] [place] [address] 05/04/2025 2:50 PM EDT Office Visit [facility] [address] [place] [address] Sonny Rodriguez DPM 3006 [facility] [place] [address] documented as of this encounter Visit Diagnoses Not on filedocumented in this encounter Additional Health Concerns Assessment Noted Time PHQ-9 Depression Total Score: 18 024 9:42 AM EDT documented as of this encounter Care Teams Tip Finisher Relationship Specialty Start Date End Date Shlomo Hu MD [address] [place] [address] PCP - General Internal Medicine 02/15/23 Shlomo Hu MD [address] [place] [address] PCP - [place] [employer] 05/15/2407/14 Shante Kumar APRN-RN MIDWIFE [address] [place] [address] PCP - [place] [employer] 07/15/24 ThursdayToya LPN [address] [place] [address] Licensed Practical Nurse Family Medicine 01/19/24 10/21/24 Claribel Scott, PIETRO [address] [place] [address] Licensed Practical Nurse Family Medicine 10/21/24 12/06/24 Jess Marsh, DUKE 112 [facility] [address] [place] [address] 12/06/24 Esthela Tesfaye, KIRA [address] [place] [address] It Account Manager Family Medicine 02/03/25 documented as of this encounter
--- OUTSIDE RECORDS SUMMARY | 2025-04-09 11:53 | XMS_ITS | Encounter Summary ---
Author Organization [facility] Address [address] [facility] [place] [address] Care Team Providers Care Industrial Robotics Mechanic Name Role Phone Shlomo Hu MD Primary Care Provider Jacob Sharp MEDICAL CHARGE ENTRY SPECIALIST Unavailable Thursday, Toya FOUNTAIN SERVER Unavailable [phone] Shlomo Hu MD Unavailable [phone] Shante Kumar COMMUNICATIONS ADVISOR-DEVELOPMENTAL MATHEMATICS PROFESSOR Unavailable Claribel Scott RN Unavailable [phone] Jess Marsh FOUNTAIN SERVER Unavailable Esthela Tesfaye GUT CARRIER Unavailable Encounter Details Date Type Department Care Team (Late st Contact Info) Description 05/12/2024 Abstract [facility] [place] [facility] 112 [facility] 110 [place] [address] Shlomo Hu MD 112 [facility] 110 [place], [place] [phone] Social History Tobacco Use Types Packs/Day Years [...] week 04/18/2024 How often do you attend [facility] or congregational services? Never 04/18/2024 Do you [...] Health Questionnaire-2 Score 6 05/10/2024 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 Not on file Not on file documented as of this encounter Plan of Treatment Upcoming Encounters Date Type Department Care Team (Late st Contact Info) Description 04/20/2025 3:00 PM EDT Office Visit [facility] [address] [place] [address] Sonny Rodriguez, DPM [address] [address] 05/04/2025 2:50 PM EDT Office Visit [facility] [address] [place] [address] Sonny Rodriguez DPM [address] [address] documented as of this encounter Visit Diagnoses Not on filedocumented in this encounter Additional Health Concerns Assessment Noted Time PHQ-9 Depression Total Score: 18 024 9:42 AM EDT documented as of this encounter Care Teams Industrial Robotics Mechanic Relationship Specialty Start Date End Date Shlomo Hu MD [address] [place] [address] PCP - General Internal Medicine 02/15/23 [place] [address] [place] [address] PCP - [employer] 08/14/23 Shlomo Hu MD [address] [place] [address] PCP - [employer] 05/15/2407/14 Shante Kumar, COMMUNICATIONS ADVISOR-DEVELOPMENTAL MATHEMATICS PROFESSOR [address] [place] [address] PCP - [place] [employer] 07/15/24, DUKE Pittman [address] [place] [address] Licensed Practical Nurse Family Medicine 01/19/24 10/21/24 Claribel Scott, RN [address] [place] [address] Licensed Practical Nurse Family Medicine 10/21/24 12/06/24 Jess Marsh LPN [address] [facility] 110 [place] [address] 12/06/24 Esthela Tesfaye, KIRA [address] [place] [address] Log Hooker Family Medicine 02/03/25 documented as of this encounter
--- OUTSIDE RECORDS SUMMARY | 2025-04-09 11:53 | XMS_ITS | Encounter Summary ---
Author Organization [facility] Address [address] [facility] [place] [address] Care Team Providers Care Explosive Ordnance Specialist Name Role Phone Shlomo Hu MD Primary Care Provider [phone] Jacob Sharp TELEPHONE APPOINTMENT CLERK Unavailable [phone] Thursday, Toya DIRECTOR FAMILY Unavailable [phone] Shlomo Hu MD Unavailable [phone] Shante Kumar DOUBLE HEAD MACHINE OPERATOR-HAIRSPRING ASSEMBLER Unavailable Claribel Scott RN Unavailable Jess Marsh DIRECTOR FAMILY Unavailable Esthela Tesfaye CORRESPONDENCE REPRESENTATIVE Unavailable Encounter Details Date Type Department Care Team (Late st Contact Info) Description 04/22/2024 Abstract [facility] [place] [facility] [place] 112 [facility] 110 [place] [address] Shlomo Hu MD 112 [facility] 110 [place], [place] [phone] Social History Tobacco Use Types Packs/Day Years [...] week 04/18/2024 How often do you attend [facility] or mandaeism services? 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 Not on file Not on file documented as of this encounter Plan of Treatment Upcoming Encounters Date Type Department Care Team (Late st Contact Info) Description 04/20/2025 3:00 PM EDT Office Visit [facility] [address] [place] [address] Sonny Rodriguez, DPM [address] [address] 05/04/2025 2:50 PM EDT Office Visit [facility] [address] [place] [address] Sonny Rodriguez, DPM [address] [address] documented as of this encounter Visit Diagnoses Not on filedocumented in this encounter Additional Health Concerns Assessment Noted Time PHQ-9 Depression Total Score: 9 08/26/20 23 1:30 PM EST documented as of this encounter Care Teams Explosive Ordnance Specialist Relationship Specialty Start Date End Date Shlomo Hu MD [address] [place] [address] PCP - General Internal Medicine 02/15/23 [place] [address] [place] [address] PCP - [place] [employer] 08/14/23 Shlomo Hu MD [address] [place] [address] PCP - [place] Commercial 05/15/2407/14 Shante Kumar, DOUBLE HEAD MACHINE OPERATOR-HAIRSPRING ASSEMBLER [address] [place] [address] PCP - [place] [employer] 07/15/24, DUKE Pittman [address] [place] [address] Licensed Practical Nurse Family Medicine 01/19/24 10/21/24 Claribel Scott, RN [address] [place] [address] Licensed Practical Nurse Family Medicine 10/21/24 12/06/24 Jess Marsh LPN [address] [facility] 110 [place] [address] 12/06/24 Esthela Tesfaye, KIRA [address] [place] [address] [employer] Executive Family Medicine 02/03/25 documented as of this encounter
--- OUTSIDE RECORDS SUMMARY | 2025-04-09 11:53 | XMS_ITS | Encounter Summary ---
Author Organization [facility] Address [address] [place] [address] Care Team Providers Care Pension Fund Manager Name Role Phone Ruiz Sean Mona GALVEZ Primary Care Provider Jacob Sharp Unavailable Rasheeda Newton RD Unavailable [phone] Unavailable [phone] Fritz HENDERSON MD, Shlomo Momin Primary Care Provider [phone] Yuan Miller MD, PhD Unavailable [phone] Source Comments In the event this information is protected by the Federal Confidentiality of Alcohol and Drug AbusePatient Records regulations: The Federal rules restrict any use of the information to criminally investigate or prosecute any alcohol or drug abuse patient.[facility] Encounter Details Date Type Department Care Team (Late st Contact Info) Description 09/29/2023 Patient Msg Gastroenterology [address] [phone] Provider, Ccf APPOINTMENT CANCELLED Social History Tobacco [...] [email or web address] Last address used for calculation [address] [...] file Travel History Travel Start Travel End [place] 03/18/2025 03/26/2025 documented as of this encounter [...] 04/10/2025 10:00 AM EDT Hospital Encounter Admitting [address] [place] [address] Yuan Miller MD, PhD [address] [place], [place] [phone] Nausea and vomiting, unspecified vomiting type [R11.2], H/O bariatric surgery [Z98.84], Jejunostomy tube fell out [T85.528A] 04/10/2025 10:00 AM EDT - 04/10/2025 12:00 PM EDT Surgery Admitting 9500 [place] [address] Yuan Miller MD, PhD [address] [phone] LAPAROSCOPIC JEJUNOSTOMY 04/19/2025 11:00 AM EDT [facility] Neurological Gnosticist [address] [phone] Joann Loera APRN.HAND STRIPPER [address] [phone] Cognitive movement issues 04/21/2025 8:30 AM EDT [facility] Nutrition Therapy [address] [phone] Tiffany Banks, RD 9500 [place] [address] f/u TF forula tolerance and hydration 05/18/2025 9:00 AM EDT [facility] General Surgery [address] [phone] Michael Mora PA-C 9500 [place] [address] f/u with michael mora in 2 wks 05/29/2025 9:00 AM T [facility] Gastroenterology [address] [phone] Johanna Martinez MD [facility] [address] [place], [place] [phone] 3 month follow up 06/28/2025 10:00 AM T [facility] Neurology Pain [address] [phone] [place] [address] [address] [id number] Follow up for pain Scheduled Procedures Name [...] documented as of this encounter Care Teams Pension Fund Manager Relationship Specialty [place] [address] [place] [address] PCP - General Family Medicine 07/09/12 10/05/23 Shlomo Hu II, MD [address] [facility] 110 [place] [address] PCP - General Internal Medicine 10/06/23 Jacob Sharp [address] [place] [address] Referring 04/30/[address] [place] [address] Registered Dietitian Nutrition 06/24/[address] [place], [place] [phone] Registered Dietitian Nutrition 08/27/23 Yuan Miller MD, PhD [address] [phone] Surgeon General Surgery 02/03/24 documented as of this encounter
--- OUTSIDE RECORDS SUMMARY | 2025-04-09 11:53 | XMS_ITS | Encounter Summary ---
Author Organization [facility] Address [facility] [place] [address] Care Team Providers Care Helicopter Engineer Name Role Phone Ruiz Sean Mona GALVEZ Primary Care Provider [phone] Jacob Sharp Unavailable Rasheeda Newton RD Unavailable [phone] Unavailable [phone] Fritz HENDERSON MD, Shlomo Momin Primary Care Provider [phone] Yuan Miller MD, PhD Unavailable [phone] Source Comments In the event this information is protected by the Federal Confidentiality of Alcohol and Drug AbusePatient Records regulations: The Federal rules restrict any use of the information to criminally investigate or prosecute any alcohol or drug abuse patient.[facility] Encounter Details Date Type Department Care Team (Late st Contact Info) Description 09/09/2013 Patient Msg Medical Records [address] [place] [address] Provider, Ccf Results Social History Tobacco Use [...] Travel History Travel Start Travel End [place] 03/18/2025 03/26/2025 documented as of this encounter Plan of Treatment Upcoming Encounters Date Type Department Care Team (Latest Contact Info) Description 04/10/2025 10:00 AM EDT Hospital Encounter Admitting [address] [phone] Yuan Miller MD, PhD [address] [phone] Nausea and vomiting, unspecified vomiting type [R11.2], H/O bariatric surgery [Z98.84], Jejunostomy tube fell out [T85.528A] 04/10/2025 10:00 AM EDT - 04/10/2025 12:00 PM EDT Surgery Admitting [address] [phone] Yuan Miller MD, PhD [address] [phone] LAPAROSCOPIC JEJUNOSTOMY 04/19/2025 11:00 AM EDT [facility] Neurological Jew [address] [address] [phone] Joann Loera APRN.COMMUNITY SERVICE WORKER 9500 [place] [address] Cognitive movement issues 04/21/2025 8:30 AM EDT [facility] Nutrition Therapy [address] [phone] Tiffany Banks, RD [address] [place] [phone] f/u TF forula tolerance and hydration 05/18/2025 9:00 AM EDT [facility] General Surgery [address] [phone] Michael Mora PA-C 9500 [place] [address] f/u with michael mora in 2 wks 05/29/2025 9:00 AM EDT [facility] Gastroenterology [address] [address] Johanna Martinez MD [facility] [address] [address] 3 month follow up 06/28/2025 10:00 AM EDT [facility] Neurology Pain [address] [place] [address] [place] [address] [place], [place] [phone] Follow up for pain Scheduled Procedures Name [...] documented as of this encounter Care Teams Helicopter Engineer Relationship Specialty [place] [address] [address] [phone] PCP - General Family Medicine 07/09/12 10/05/23 Shlomo Hu II, MD 112 [facility] 110 [place] [address] PCP - General Internal Medicine 10/06/23 Jacob Sharp [address] [place] [address] Referring 04/30/[address] [place] [phone] Registered Dietitian Nutrition 06/24/[address] [facility] [place] [address] Registered Dietitian Nutrition 08/27/23 Yuan Miller MD, PhD 0050 [place] [address] Surgeon General Surgery 02/03/24 documented as of this encounter
--- OUTSIDE RECORDS SUMMARY | 2025-04-09 11:53 | XMS_ITS | Encounter Summary ---
Author Organization [facility] Address [address] [facility] [place] [address] Care Team Providers Care Ethnographic Materials Conservator Name Role Phone Shlomo Hu MD Primary Care Provider Thursday, Toya CAMPOSN Unavailable [phone] Shlomo Hu MD Unavailable [phone] Shante Kumar J2EE PROGRAMMER-8TH GRADE TEACHER Unavailable Claribel Scott RN Unavailable Jess Marsh PHILATELIC CONSULTANT Unavailable Esthela Tesfaye CLEANING MAID Unavailable Encounter Details Date Type Department Care Team (Late st Contact Info) Description 06/03/2024 Abstract [facility] [place] [facility] [place] 112 [facility] 110 [place] [address] Shlomo Hu MD [address] 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 Not on file Not on file documented as of this encounter Plan of Treatment Upcoming Encounters Date Type Department Care Team (Late st Contact Info) Description 04/20/2025 3:00 PM EDT Office Visit [facility] [address] [place] [address] Sonny Rodriguez, DPM 3006 [facility] 5 [place] [address] 05/04/2025 2:50 PM EDT Office Visit [facility] [address] [place] [address] Sonny Rodriguez DPM 3006 [facility] 5 [place] [address] documented as of this encounter Visit Diagnoses Not on filedocumented in this encounter Additional Health Concerns Assessment Noted Time PHQ-9 Depression Total Score: 18 024 9:42 AM EDT documented as of this encounter Care Teams Ethnographic Materials Conservator Relationship Specialty Start Date End Date Shlomo Hu MD [address] [place] [address] PCP - General Internal Medicine 02/15/23 Shlomo Hu MD [address] [place] [address] PCP - [place] [employer] 05/15/2407/14 Shante Kumar APRN-8TH GRADE TEACHER [address] [place] [address] PCP - [place] [employer] 07/15/24 ThursdayToya LPN [address] [place] [address] Licensed Practical Nurse Family Medicine 01/19/24 10/21/24 Claribel Scott, PIETRO [address] [place] [address] Licensed Practical Nurse Family Medicine 10/21/24 12/06/24 Jess Marsh, DUKE [address] [facility] [address] [place] [address] 12/06/24 Esthela Tesfaye, KIRA [address] [place] [address] Joinery Setter Out Family Medicine 02/03/25 documented as of this encounter
--- OUTSIDE RECORDS SUMMARY | 2025-04-09 11:53 | XMS_ITS | Encounter Summary ---
Author Organization [facility] Address [address] [facility] [place] [address] Care Team Providers Care Bag Filler Machine Operator Name Role Phone Shlomo Hu MD Primary Care Provider Thursday, Toya CAMPOSN Unavailable [phone] Shlomo Hu MD Unavailable [phone] Shante Kumar PLEXIGLAS FORMER-COIL TIER Unavailable Claribel Scott RN Unavailable Jess Marsh SMALL PARTS SHAPER OPERATOR Unavailable Esthela Tesfaye CREDIT MANAGER Unavailable Encounter Details Date Type Department Care Team (Late st Contact Info) Description 05/26/2024 Abstract [facility] 112 [facility] 110 [place] [address] Shlomo Hu MD 112 [facility] 110 [place] [address] Social History Tobacco Use Types [...] How often do you attend chur or baptist services? 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 Not on file Not on file documented as of this encounter Plan of Treatment Upcoming Encounters Date Type Department Care Team (Late st Contact Info) Description 04/20/2025 3:00 PM EDT Office Visit [facility] [address] [place] [address] Sonny Rodriguez, DPM 3006 [facility] 5 [place] [address] 05/04/2025 2:50 PM EDT Office Visit [facility] [address] [place] [address] Sonny Rodriguez DPM 3006 [facility] 5 [place] [address] documented as of this encounter Visit Diagnoses Not on filedocumented in this encounter Additional Health Concerns Assessment Noted Time PHQ-9 Depression Total Score: 18 024 9:42 AM EDT documented as of this encounter Care Teams Bag Filler Machine Operator Relationship Specialty Start Date End Date Shlomo Hu MD [address] [place] [address] PCP - General Internal Medicine 02/15/23 Shlomo Hu MD [address] [place] [address] PCP - [place] Commercial 05/15/2407/14 Shante Kumar APRN-COIL TIER [address] [place] [address] PCP - [place] Commercial 07/15/24 ThursdayToya LPN [address] [place] [address] Licensed Practical Nurse Family Medicine 01/19/24 10/21/24 Claribel Scott, PIETRO [address] [place] [address] Licensed Practical Nurse Family Medicine 10/21/24 12/06/24 Jess Marsh, DUKE 112 [facility] [address] [place] [address] 12/06/24 Esthela Tesfaye, KIRA [address] [place] [address] Nurseryperson Family Medicine 02/03/25 documented as of this encounter
--- OUTSIDE RECORDS SUMMARY | 2025-04-09 11:53 | XMS_ITS | Encounter Summary ---
Author Organization [facility] Address [facility]5 [place] [address] Care Team Providers Care Pot Operator Name Role Phone Ruiz Sean Mona GALVEZ Primary Care Provider [phone] Jacob Sharp Unavailable Rasheeda Newton RD Unavailable [phone] Unavailable [phone] Fritz HENDERSON MD, Shlomo Momin Primary Care Provider [phone] Yuan Miller MD, PhD Unavailable [phone] Source Comments In the event this information is protected by the Federal Confidentiality of Alcohol and Drug AbusePatient Records regulations: The Federal rules restrict any use of the information to criminally investigate or prosecute any alcohol or drug abuse patient.[facility] Encounter Details Date Type Department Care Team (Late st Contact Info) Description 09/16/2013 Patient Msg Medical Records [address] [place], [place] [id number] Provider, Ccf f/u with ENT Social History [...] 10:00 AM EDT Hospital Encounter Admitting [address] [id number] Yuan Miller MD, PhD [address] [id number] Nausea and vomiting, unspecified vomiting type [R11.2], H/O bariatric surgery [Z98.84], Jejunostomy tube fell out [T85.528A] 04/10/2025 10:00 AM EDT - 04/10/2025 12:00 PM EDT Surgery Admitting [address] [id number] Yuan Miller MD, PhD [address] [id number] LAPAROSCOPIC JEJUNOSTOMY 04/19/2025 11:00 AM EDT [facility] Neurological Jehovah'S Witness [address] [phone] Joann Loera APRN.ADVISOR CONSULTANT [address] [id number] Cognitive movement issues 04/21/2025 8:30 AM EDT [facility] Nutrition Therapy [address] [address] Tiffany Banks, RD [address] [phone] f/u TF forula tolerance and hydration 05/18/2025 9:00 AM EDT [facility] General Surgery [address] [phone] Michael Mora PA-C 9500 [place] [address] f/u with michael mora in 2 wks 05/29/2025 9:00 AM EDT [facility] Gastroenterology [address] [address] Johanna Martinez MD [facility] [address] [address] 3 month follow up 06/28/2025 10:00 AM EDT [facility] Neurology Pain [address] [place], [place] [phone] [place] [address] [place], [place] [phone] Follow up for pain Scheduled Procedures Name [...] documented as of this encounter Care Teams Pot Operator Relationship Specialty [place] [address] [place] [id number] PCP - General Family Medicine 07/09/12 10/05/23 Shlomo Hu II, MD [address] [address] PCP - General Internal Medicine 10/06/23 Jacob Sharp [address] [place] [address] Referring 04/30/[address] [place] [address] Registered Dietitian Nutrition 06/24/[address] [facility]0 [place] [address] Registered Dietitian Nutrition 08/27/23 Yuan [place] [address] [place], [place] [phone] Surgeon General Surgery 02/03/24 documented as of this encounter
--- OUTSIDE RECORDS SUMMARY | 2025-04-09 11:53 | XMS_ITS | Encounter Summary ---
Author Organization [facility] Address [address] [place] [address] Care Team Providers Care Lathe Machine Operator Name Role Phone Joseph Sean Mona GALVEZ Primary Care Provider [phone] Jacob Sharp Unavailable Rasheeda Newton RD Unavailable [phone] Unavailable [phone] Fritz HENDERSON MD, Shlomo B Primary Care Provider [phone] Yuna Miller MD, PhD Unavailable [phone] Source Comments In the event this information is protected by the Federal Confidentiality of Alcohol and Drug AbusePatient Records regulations: The Federal rules restrict any use of the information to criminally investigate or prosecute any alcohol or drug abuse patient.[facility] Encounter Details Date Type Department Care Team (Late st Contact Info) Description 09/17/2023 Get Medical Advice Gastroenterology [address] [phone] Johanna Martinez MD [facility] [address] [address] Appointment Social History Tobacco Use [...] slept in a fdc (including now)? No 08/10/2023 Area Deprivation Index Answer Date Reagan rded National Score (1-100), lower number is lower ri sk 63 03/05/2023 State Score (1-10), lower number is lower risk 4 03/05/2023 Data from: https://www.neighborhoodatlas.medicine.[facility].edu/. Last address used for calculation [address] 270 03/05/2023 Comments [...] 04/10/2025 10:00 AM EDT Hospital Encounter Admitting [address] [place] [address] Yuan Miller MD, PhD [address] [place] [address] Nausea and vomiting, unspecified vomiting type [R11.2], H/O bariatric surgery [Z98.84], Jejunostomy tube fell out [T85.528A] 04/10/2025 10:00 AM EDT - 04/10/2025 12:00 PM EDT Surgery Admitting 9500 [place] [address] Yuan Miller MD, PhD 9500 [place] [address] LAPAROSCOPIC JEJUNOSTOMY 04/19/2025 11:00 AM EDT [facility] Neurological Anabaptism [address] [phone] Joann Loera APRN.DOCTOR OF PODIATRY 9500 [place] [address] Cognitive movement issues 04/21/2025 8:30 AM EDT [facility] Nutrition Therapy [address] [phone] Tiffany Banks, RD [address] [phone] f/u TF forula tolerance and hydration 05/18/2025 9:00 AM EDT [facility] General Surgery [address] [phone] Michael Mora PA-C [address] [phone] f/u with michael mora in 2 wks 05/29/2025 9:00 AM EDT [facility] Gastroenterology [address] [phone] Johanna Martinez MD [facility] [address] [place], [place] [address] 3 month follow up 06/28/2025 10:00 AM EDT [facility] Neurology Pain [address] [address] [phone] Wilma Lei, [address] [address] [phone] Follow up for pain Scheduled Procedures Name [...] documented as of this encounter Care Teams Lathe Machine Operator Relationship Specialty [place] [address] [place] [address] PCP - General Family Medicine 07/09/12 10/05/23 Shlomo Hu II, MD 112 [facility] 110 [place] [address] PCP - General Internal Medicine 10/06/23 Jacob Sharp [address] [place] [address] Referring 04/30/[address] [address] Registered Dietitian Nutrition 06/24/[address]15 [place] [address] Registered Dietitian Nutrition 08/27/23 Yuan Miller MD, PhD 9500 [place] [address] Surgeon General Surgery 02/03/24 documented as of this encounter
--- OUTSIDE RECORDS SUMMARY | 2025-04-09 11:53 | XMS_ITS | Encounter Summary ---
Author Organization [facility] Address [address] [place] [address] Care Team Providers Care Stone Rougher Name Role Phone Ruiz, Sean Mona GALVEZ Primary Care Provider [phone] Jacob Sharp Unavailable Rasheeda Newton RD Unavailable [phone] Unavailable [phone] Fritz HENDERSON MD, Shlomo B Primary Care Provider [phone] Yuan Miller MD, PhD Unavailable [phone] Source Comments In the event this information is protected by the Federal Confidentiality of Alcohol and Drug AbusePatient Records regulations: The Federal rules restrict any use of the information to criminally investigate or prosecute any alcohol or drug abuse patient.[facility] Encounter Details Date Type Department Care Team (Late st Contact Info) Description 09/30/2023 Get Medical Advice PAIN [place] [address] [address] [place], [place] [phone] Mary Arthur APRN.ADJUSTMENT EXAMINER [address] [address] [place] [address] Roryann marie Social History Tobacco Use Types [...] is lower risk 4 03/05/2023 Data from: https://www.neighborhoodatlas.[facility]/. Last address used for calculation [address] [facility] 270 03/05/2023 Comments No Sex and Gender [...] 04/10/2025 10:00 AM EDT Hospital Encounter Admitting [address] [place] [address] Yuan Miller MD, PhD [address] [place] [address] Nausea and vomiting, unspecified vomiting type [R11.2], H/O bariatric surgery [Z98.84], Jejunostomy tube fell out [T85.528A] 04/10/2025 10:00 AM EDT - 04/10/2025 12:00 PM EDT Surgery Admitting 9500 [place] [address] Yuan Miller MD, PhD [address] [phone] LAPAROSCOPIC JEJUNOSTOMY 04/19/2025 11:00 AM EDT [facility] Neurological Adventist [address] [phone] Joann Loera APRN.ADJUSTMENT EXAMINER [address] [phone] Cognitive movement issues 04/21/2025 8:30 AM EDT [facility] Nutrition Therapy [address] [phone] Tiffany Banks, RD [address] [place] [phone] f/u TF forula tolerance and hydration 05/18/2025 9:00 AM EDT [facility] General Surgery [address] [phone] Michael Mora PA-C [address] [place] [phone] f/u with michael mora in 2 wks 05/29/2025 9:00 AM EDT [facility] Gastroenterology [address] [phone] Johanna Martinez MD [facility] [address] [address] 3 month follow up 06/28/2025 10:00 AM T [facility] Neurology Pain [address] [place] [address] [place] [address] [place], [place] [phone] Follow up for pain Scheduled Procedures Name [...] documented as of this encounter Care Teams Stone Rougher Relationship Specialty [place] [address] [place] [address] PCP - General Family Medicine 07/09/12 10/05/23 Shlomo Hu II, MD 112 [facility] 110 [place] [address] PCP - General Internal Medicine 10/06/23 Jacob Sharp [address] [place] [address] Referring 04/30/[address] [place] [address] Registered Dietitian Nutrition 06/24/[address] 9500 [place] [address] Registered Dietitian Nutrition 08/27/23 Yuan Miller MD, PhD 9500 [place] [address] Surgeon General Surgery 02/03/24 documented as of this encounter
--- OUTSIDE RECORDS SUMMARY | 2025-04-09 11:53 | XMS_ITS | Encounter Summary ---
Author Organization [facility] Address [address] [place] [address] Care Team Providers Care Arts Administrator Or Manager Name Role Phone Jacob Sharp Unavailable Rasheeda Newton RD Unavailable [phone] Unavailable [phone] Fritz HENDERSON MD, Shlomo Momin Primary Care Provider [phone] Yuan Miller MD, PhD Unavailable [phone] Source Comments In the event this information is protected by the Federal Confidentiality of Alcohol and Drug AbusePatient Records regulations: The Federal rules restrict any use of the information to criminally investigate or prosecute any alcohol or drug abuse patient.[facility] Encounter Details Date Type Department Care Team (Late st Contact Info) Description 10/08/2023 Patient Msg Gastroenterology [address] [phone] Provider, Ccf Follow ups Social History Tobacco [...] is lower risk 4 03/05/2023 Data from: https://www.neighborhoodatlas.medicine.[facility].edu/. Last address used for calculation [address] [...] 10:00 AM EDT Hospital Encounter Admitting [address] [place] [address] Yuan Milelr MD, PhD [address] [place] [address] Nausea and vomiting, unspecified vomiting type [R11.2], H/O bariatric surgery [Z98.84], Jejunostomy tube fell out [T85.528A] 04/10/2025 10:00 AM EDT - 04/10/2025 12:00 PM EDT Surgery Admitting [facility] [place] [address] Yuan Miller MD, PhD [address] [phone] LAPAROSCOPIC JEJUNOSTOMY 04/19/2025 11:00 AM EDT [facility] Neurological Jewish 9300 [place] [address] Joann Loera APRN.FAGOT HEATER HELPER 9500 [place] [address] Cognitive movement issues 04/21/2025 8:30 AM EDT [facility] Nutrition Therapy [address] [place] [phone] Tiffany Banks, RD [address] [place] 8781995 f/u TF forula tolerance and hydration 05/18/2025 9:00 AM EDT [facility] General Surgery [address] 1965806 Michael Mora PA-C [address] 8781995 f/u with michael mora in 2 wks 05/29/2025 9:00 AM EDT [facility] Gastroenterology [address] [address]2006 Johanna Martinez MD [facility] [address] 2236406 3 month follow up 06/28/2025 10:00 AM EDT [facility] Neurology Pain [address] [place] [phone] [place] [address] [address] [place] [phone] Follow up for pain Scheduled Procedures Name [...] documented as of this encounter Care Teams Arts Administrator Or Manager Relationship Specialty Start Date End Date Shlomo Hu II, MD [address] [facility] 110 [place] [address] PCP - General Internal Medicine 10/06/23 Jacob Sharp [address] [place] [address] Referring 04/30/[address] [place] [phone] Registered Dietitian Nutrition 06/24/[address] 9500 [place] [address] Registered Dietitian Nutrition 08/27/23 Yuan Miller MD, PhD 9500 [place], [place] 0214395 Surgeon General Surgery 02/03/24 documented as of this encounter
--- OUTSIDE RECORDS SUMMARY | 2025-04-09 11:54 | XMS_ITS | Encounter Summary ---
Author Organization [facility] Address [address]00 [place] [address] Care Team Providers Care Guide Delegate Name Role Phone Jacob Sharp Unavailable Rasheeda Newton RD Unavailable [phone] Unavailable [phone] Fritz HENDERSON MD, Shlomo B Primary Care Provider [phone] Yuan Miller MD, PhD Unavailable [phone] Source Comments In the event this information is protected by the Federal Confidentiality of Alcohol and Drug AbusePatient Records regulations: The Federal rules restrict any use of the information to criminally investigate or prosecute any alcohol or drug abuse patient.[facility] Encounter Details Date Type Department Care Team (Late st Contact Info) Description 08/17/2024 Get Medical Advice General Surgery 9300 [place] [address] Michael Mora PA-C 4327 [place] [address] Infection feeding tube Social History [...] living in a halfway (including now)? No 08/01/2024 Area Deprivation Index Answer Date Reagan rded National Score (1-100), lower number is lower ri sk 63 03/05/2023 State Score (1-10), lower number is lower risk 4 03/05/2023 Data from: https://www.neighborhoodatlas.[facility]/. Last address used for calculation [address] 270 03/05/2023 Comments No Sex and [...] 10:00 AM EDT Hospital Encounter Admitting 9500 [place] [address] Yuan Miller MD, PhD [address] [phone] Nausea and vomiting, unspecified vomiting type [R11.2], H/O bariatric surgery [Z98.84], Jejunostomy tube fell out [T85.528A] 04/10/2025 10:00 AM EDT - 04/10/2025 12:00 PM EDT Surgery Admitting [address] [phone] Yuan Milelr MD, PhD [address] [phone] LAPAROSCOPIC JEJUNOSTOMY 04/19/2025 11:00 AM EDT [facility] Neurological Synagogue 9300 [place] [address] Joann Loera APRN.CUSTOM BIKE BUILDER [address] [phone] Cognitive movement issues 04/21/2025 8:30 AM EDT [facility] Nutrition Therapy [address] [address] Tiffany Banks, RD [address] [place] [phone] f/u TF forula tolerance and hydration 05/18/2025 9:00 AM EDT [facility] General Surgery 9300 [place] [address] Michael Mora PA-C 9500 [place] [address] f/u with michael mora in 2 wks 05/29/2025 9:00 AM EDT [facility] Gastroenterology [address] [place] [phone] Johanna Martinez MD [facility] [address] [place] [phone] 3 month follow up 06/28/2025 10:00 AM EDT [facility] Neurology Pain [address] [place] [phone] [place] [address] [place] [address] Follow up for pain Scheduled Procedures Name Priority Associated Diagnoses Date/Ti me LAPAROSCOPIC JEJUNOSTOMY Nausea and vomiting, unspecified vomiting type H/O bariatric surgery Jejunostomy tube fell out 04/10/2025 10:00 AM EDT documented as of this encounter Visit Diagnoses Not on filedocumented in this encounter Care Teams Guide Delegate Relationship Specialty Start Date End Date Shlomo Hu II, MD [address] [place] [address] 110 [place] [address] PCP - General Internal Medicine 10/06/23 Jacob Sharp [address] [place] [address] Referring 04/30/[address] [place] [phone] Registered Dietitian Nutrition 06/24/[address] [place], [place] [phone] Registered Dietitian Nutrition 08/27/23 Yuan Miller MD, PhD [facility]0 [place] [phone] Surgeon General Surgery 02/03/24 documented as of this encounter
--- OUTSIDE RECORDS SUMMARY | 2025-04-09 11:54 | XMS_ITS | Encounter Summary ---
Author Organization [facility] Address [address] [facility] [place] [address] Care Team Providers Care Information Technology Associate Name Role Phone Shlomo Hu MD Primary Care Provider [phone] Thursday, Toya TIMBER APPRAISER Unavailable [phone] Shante Kumar CERTIFIED PERFORMANCE TECHNOLOGIST-INGOT CAR OPERATOR Unavailable Claribel Scott RN Unavailable Jess Marsh TIMBER APPRAISER Unavailable Esthela Tesfaye MUSIC HISTORIAN Unavailable [phone] Encounter Details Date Type Department Care Team (Late st Contact Info) Description 07/15/2024 Abstract [facility] [place] [facility] [address] [facility] 110 [place] [id number] Shlomo Hu MD 112 [facility] 110 [place], [place] [phone] Social History Tobacco Use Types Packs/Day Years [...] often do you attend chur ch or bahai services? 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 Not on file Not on file documented as of this encounter Plan of Treatment Upcoming Encounters Date Type Department Care Team ([facility] st Contact Info) Description 04/20/2025 3:00 PM EDT Office Visit [facility] [address] [facility] 120 [place] [address] Sonny Rodriguez DPM [address] [address] 05/04/2025 2:50 PM EDT Office Visit [facility] [address] [facility] 120 [place] [address] Sonny Rodriguez DPLudmila [address] [address] documented as of this encounter Visit Diagnoses Not on filedocumented in this encounter Additional Health Concerns Assessment Noted Time PHQ-9 Depression Total Score: 18 024 9:42 AM EDT documented as of this encounter Care Teams Information Technology Associate Relationship Specialty Start Date End Date Shlomo Hu MD [address] [facility] 110 [place] [address] PCP - General Internal Medicine 02/15/23 Shante Kumar, CERTIFIED PERFORMANCE TECHNOLOGIST-INGOT CAR OPERATOR [address] [place] [address] PCP - Happy Commercial 07/15/24 ThursdayToya LPN [address] [place] [address] Licensed Practical Nurse Family Medicine 01/19/24 10/21/24 Claribel Scott, PIETRO [address] [place] [address] Licensed Practical Nurse Family Medicine 10/21/24 12/06/24 Jess Marsh LPN 112 [facility] 110 [place] [address] 12/06/24 Esthela Tesfaye, KIRA [address] [place] [address] Price Analyst Family Medicine 02/03/25 documented as of this encounter
--- OUTSIDE RECORDS SUMMARY | 2025-04-09 11:54 | XMS_ITS | Encounter Summary ---
Author Organization [facility] Address [address] [facility] [place] [address] Care Team Providers Care Customer Program Specialist Name Role Phone Shlomo Hu MD Primary Care Provider Jacob Sharp CORPORATE SALES TRAINER Unavailable [phone] Thursday, Toya FISHER SCALLOP Unavailable [phone] Shlomo Hu MD Unavailable [phone] Shante Kumar BLOCK CHOPPER HAND-SVP MONETIZATION Unavailable Claribel Scott RN Unavailable Jess Marsh FISHER SCALLOP Unavailable Esthela Tesfaye GERMINATION WORKER Unavailable Encounter Details Date Type Department Care Team (Late st Contact Info) Description 03/23/2024 Abstract [facility] [place] [facility] 112 [facility] 110 [place] [address] Shlomo Hu MD 112 [facility] 110 [place], [place] [id number] Social History Tobacco Use Types Packs/Day Years [...] 03/01/2023 How often do you attend [facility] or [facility] services? 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 Not on file Not on file documented as of this encounter Plan of Treatment Upcoming Encounters Date Type Department Care Team (Late st Contact Info) Description 04/20/2025 3:00 PM EDT [facility] [address] [place] [address] Sonny Rodriguez, DPM [address] [address] 05/04/2025 2:50 PM EDT Office Visit [facility] [address] [place] [address] Sonny Rodriguez, DPM [address] [address] documented as of this encounter Visit Diagnoses Not on filedocumented in this encounter Additional Health Concerns Assessment Noted Time PHQ-9 Depression Total Score: 9 08/26/20 23 1:30 PM EST documented as of this encounter Care Teams Customer Program Specialist Relationship Specialty Start Date End Date Shlomo Hu MD [address] [facility] 110 [place] [address] PCP - General Internal Medicine 02/15/23 [place] [address] [place] [address] PCP - [place] [employer] 08/14/23 Shlomo Hu MD [address] [facility] 110 [place] [address] PCP - [place] 05/15/2407/14 Shante Kumar APRN-SVP MONETIZATION [address] [place] [address] PCP - [place] [employer] 11Thursday, DUKE Pittman [address] [place] [address] Licensed Practical Nurse Family Medicine 01/19/24 10/21/24 Claribel Scott, RN [address] [place] [address] Licensed Practical Nurse Family Medicine 10/21/24 12/06/24 Jess Marsh LPN [address] [place] [address] 12/06/24 Esthela Tesfaye, KIRA 1479 [place] [address] Sole Ruffer Family Medicine 02/03/25 documented as of this encounter
--- OUTSIDE RECORDS SUMMARY | 2025-04-09 11:54 | XMS_ITS | Encounter Summary ---
Author Organization [facility] Address [facility] [place] [address] Care Team Providers Care Medication Tech Name Role Phone Ruiz Sean Mona GALVEZ Primary Care Provider [phone] Jacob Sharp Unavailable Rasheeda Newton RD Unavailable [phone] Unavailable [phone] Fritz HENDERSON MD, Shlomo Momin Primary Care Provider [phone] Yuan Miller MD, PhD Unavailable [phone] Source Comments In the event this information is protected by the Federal Confidentiality of Alcohol and Drug AbusePatient Records regulations: The Federal rules restrict any use of the information to criminally investigate or prosecute any alcohol or drug abuse patient.[facility] Encounter Details Date Type Department Care Team (Late st Contact Info) Description 04/26/2014 Patient Msg Medical Records [address] [place] [address] Provider, Ccf RE: Request an Appointment Social [...] 10:00 AM EDT Hospital Encounter Admitting [address] [id number] Yuan Miller MD, PhD [address] [id number] Nausea and vomiting, unspecified vomiting type [R11.2], H/O bariatric surgery [Z98.84], Jejunostomy tube fell out [T85.528A] 04/10/2025 10:00 AM EDT - 04/10/2025 12:00 PM EDT Surgery Admitting [address] [id number] Yuan Miller MD, PhD [address] [place] [address] [id number] LAPAROSCOPIC JEJUNOSTOMY 04/19/2025 11:00 AM EDT [facility] Neurological Buddhism [address] [phone] Joann Loera APRN.ASSEMBLER FINGER BUFFS [address] [phone] Cognitive movement issues 04/21/2025 8:30 AM EDT [facility] Nutrition Therapy [address] [address] Tiffany Banks, RD [address] [phone] f/u TF forula tolerance and hydration 05/18/2025 9:00 AM EDT [facility] General Surgery [address] [phone] Michael Mora PA-C 9500 [place] [address] f/u with michael mora in 2 wks 05/29/2025 9:00 AM EDT [facility] Gastroenterology [address] [address] Johanna Martinez MD [facility] [address] [address] 3 month follow up 06/28/2025 10:00 AM EDT [facility] Neurology Pain [address] [place], [place] [phone] [place] [address] [place], [place] [phone] Follow up for pain Scheduled Procedures Name [...] documented as of this encounter Care Teams Medication Tech Relationship Specialty [place] [address] [address] [phone] PCP - General Family Medicine 07/09/12 10/05/23 Shlomo Hu II, MD [address] [address] PCP - General Internal Medicine 10/06/23 Jacob Sharp [address] [place] [address] Referring 04/30/[address] [place] [address] Registered Dietitian Nutrition 06/24/[address] [facility] [place] [address] Registered Dietitian Nutrition 08/27/23 Yuan Miller MD, PhD [address] [place], [place] [address] Surgeon General Surgery 02/03/24 documented as of this encounter
--- OUTSIDE RECORDS SUMMARY | 2025-04-09 11:54 | XMS_ITS | Encounter Summary ---
Author Organization [facility] Address [address] [place] [address] Care Team Providers Care Satin Finisher Name Role Phone Shlomo Hu MD Primary Care Provider [phone] Thursday, Toya HEAD WAITER/WAITRESS BANQUET Unavailable [phone] Shante Kumar INTEGRATED MARKETING MANAGER-FLEXOGRAPHIC PRESS SET UP OPERATOR Unavailable Claribel Scott RN Unavailable [phone] Jess Marsh HEAD WAITER/WAITRESS BANQUET Unavailable Esthela Tesfaye FINE CHEMICALS OPERATOR Unavailable [phone] Encounter Details Date Type Department Care [...] Recorded Patient Health Questionnaire-2 Score 1 06/09/2024 [facility] of Occupat ional Health - Occupational [...] any time in the past 12 m [facility], were you homeless or living in [...] 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 Not on file Not on file documented as of this encounter Plan of Treatment Upcoming Encounters Date Type Department Care Team (Late st Contact Info) Description 04/20/2025 3:00 PM EDT Office Visit [facility] 112 [facility] 120 [place] [address] Sonyn Rodriguez, DPM [address] [address] 05/04/2025 2:50 PM EDT Office Visit [facility] [address] [facility] [facility] 120 [place] [address] Sonny Rodriguez, DPM [address] [address] documented as of this encounter Procedures Procedure Name Priority Date/Time Associated Diagnosis Comments CT ABD/PEL WO IVCON 07/25/2024 3 :13 PM EST documented in this encounter Results * CT ABD/PEL WO IVCON (07/25/2024 3:13 PM EST) Anatomical Region Laterality Modality Other 07/25/2024 3:13 PM EST Narrative 07/25/2024 3:41 PM EST * * *Final Report* * * DATE OF EXAM: Jul 25 2024 3:13PM [facility] 0531 - CT ABD/PEL WO IVCON / [...] jejunostomy tube. Status post Dylon-en-Y gastric bypass. Sander Machine: ZACHERY Transcribe Date/Time: Jul 25 2024 3:22P Dictated by : BERRY RODRIGUES MD This examination was interpreted and the report reviewed and electronically signed by: BERRY RODRIGUES MD on Jul 25 2024 3:39PM EST [id number]^SI^ACN Procedure Note Radiology, Radiologist, - 07/25/2024 * * *Final Report* * * DATE OF EXAM: Jul 25 2024 3:13PM [facility] 0531 - CT ABD/PEL WO IVCON / [...] jejunostomy tube. Status post Dylon-en-Y gastric bypass. Sander Machine: ZACHERY Transcribe Date/Time: Jul 25 2024 3:22P Dictated by : BERRY RODRIGUES MD This examination was interpreted and the report reviewed and electronically signed by: BERRY RODRIGUES MD on Jul 25 2024 3:39PM EST [id number]^[id number]^SI^ACN us Generic External Data Provider [facility] Final Result documented in this encounter Visit Diagnoses Not on filedocumented in this encounter Additional Health Concerns Assessment Noted Time PHQ-9 Depression Total Score: 18 024 9:42 AM EDT documented as of this encounter Care Teams Satin Finisher Relationship Specialty Start Date End Date Shlomo Hu MD [address] [facility] 110 [place] [address] PCP - General Internal Medicine 02/15/23 Shante Kumar APRN-FLEXOGRAPHIC PRESS SET UP OPERATOR [address] [facility] 160 [place] [address] PCP - [place] Commercial 07/15/24 ThursdayToya LPN [address] [facility] 110 [place] [address] Licensed Practical Nurse Family Medicine 01/19/24 10/21/24 Claribel Scott, PIETRO 9445 [place] [address] Licensed Practical Nurse Family Medicine 10/21/24 12/06/24 Jess Marsh LPN [address] [facility] 110 [place] [address] 12/06/24 Esthela Tesfaye LSW 1479 [place] [address] Form Carpenter Family Medicine 02/03/25 documented as of this encounter
--- OUTSIDE RECORDS SUMMARY | 2025-04-09 11:54 | XMS_ITS | Encounter Summary ---
Author Organization [facility] Address [address] [place] [address] Care Team Providers Care Electrician Shop Name Role Phone Saen Ruiz Mona GALVEZ Primary Care Provider [phone] Jacob Sharp Unavailable Rasheeda Newton RD Unavailable [phone] Unavailable [phone] Fritz HENDERSON MD, Shlomo B Primary Care Provider [phone] Yuan Miller MD, PhD Unavailable [phone] Source Comments In the event this information is protected by the Federal Confidentiality of Alcohol and Drug AbusePatient Records regulations: The Federal rules restrict any use of the information to criminally investigate or prosecute any alcohol or drug abuse patient.[facility] Encounter Details Date Type Department Care Team (Late st Contact Info) Description 11/13/2016 Patient Msg Obstetrics/Gynecolog y [address] [address] Karen Zamudio, EXTRUSION FORMER.ROENTGENOLOGIST [address] [place] [address] RE: Appointment Cancellation Request Social History Tobacco [...] 04/10/2025 10:00 AM EDT Hospital Encounter Admitting [facility]0 [place] [address] Yuan Miller MD, PhD [address] [place] [address] Nausea and vomiting, unspecified vomiting type [R11.2], H/O bariatric surgery [Z98.84], Jejunostomy tube fell out [T85.528A] 04/10/2025 10:00 AM EDT - 04/10/2025 12:00 PM EDT Surgery Admitting 9500 [place] [address] Yuan Miller MD, PhD 9500 [place] [address] LAPAROSCOPIC JEJUNOSTOMY 04/19/2025 11:00 AM EDT [facility] Neurological Sabianist 93 [place] [address] Joann Loera APRN.ROENTGENOLOGIST [address] [phone] Cognitive movement issues 04/21/2025 8:30 AM EDT [facility] Nutrition Therapy [address] [phone] Tiffany Banks, RD 9500 [place] [address] f/u TF forula tolerance and hydration 05/18/2025 9:00 AM EDT [facility] General Surgery 93 [place] [address] Michael Mora PA-C 9500 [place] [address] f/u with michael mora in 2 wks 05/29/2025 9:00 AM EDT [facility] Gastroenterology [address] [phone] Johanna Martinez MD [facility] [address] [phone] 3 month follow up 06/28/2025 10:00 AM EDT [facility] Neurology Pain [address] [phone] [place] [address] [place] [address] Follow up for pain Scheduled Procedures Name [...] documented as of this encounter Care Teams Electrician Shop Relationship Specialty [place] [address] [place] [address] PCP - General Family Medicine 07/09/12 10/05/23 Shlomo Hu II, MD 112 [facility] 110 [place] [address] PCP - General Internal Medicine 10/06/23 Jacob Sharp [address] [place] [address] Referring 04/30/[address] [place] [phone] Registered Dietitian Nutrition 06/24/[address] [facility]8 [place] [address] Registered Dietitian Nutrition 08/27/23 Yuan Miller MD, PhD 9504 [place] [address] Surgeon General Surgery 02/03/24 documented as of this encounter
--- OUTSIDE RECORDS SUMMARY | 2025-04-09 11:54 | XMS_ITS | Encounter Summary ---
Author Organization [facility] Address [address] [place] [address] Care Team Providers Care Axle And Frame Mechanic Name Role Phone Sean Ruiz Mona GALVEZ Primary Care Provider [phone] Jacob Sharp Unavailable Rasheeda Newton [address] Unavailable [phone] Unavailable [phone] Fritz HENDERSON MD, Shlomo B Primary Care Provider [phone] Yuan Miller MD, PhD Unavailable [phone] Source Comments In the event this information is protected by the Federal Confidentiality of Alcohol and Drug AbusePatient Records regulations: The Federal rules restrict any use of the information to criminally investigate or prosecute any alcohol or drug abuse patient.[facility] Encounter Details Date Type Department Care Team (Late st Contact Info) Description 07/21/2016 Patient Msg Plastic Surgery [address] [place] [address] Rema Cole MD 9500 [place] [address] RE: Request an Appointment Social [...] 04/10/2025 10:00 AM EDT Hospital Encounter Admitting [address] [place] [address] Yuan Miller MD, PhD [address] [place] [address] Nausea and vomiting, unspecified vomiting type [R11.2], H/O bariatric surgery [Z98.84], Jejunostomy tube fell out [T85.528A] 04/10/2025 10:00 AM EDT - 04/10/2025 12:00 PM EDT Surgery Admitting 9500 [place] [address] Yuan Miller MD, PhD 9500 [place] [address] LAPAROSCOPIC JEJUNOSTOMY 04/19/2025 11:00 AM EDT [facility] Neurological Yazidism [address] [address] [phone] Joann Loera APRN.BASE PLY HAND [address] [place] [address] [phone] Cognitive movement issues 04/21/2025 8:30 AM EDT [facility] Nutrition Therapy [address] [place] 0789106 Tiffany Banks, RD [address] [place] [phone] f/u TF forula tolerance and hydration 05/18/2025 9:00 AM EDT [facility] General Surgery [address] [place] [phone] Michael Mora PA-C 9500 [place], [place] 6731[address] f/u with michael mora in 2 wks 05/29/2025 9:00 AM EDT [facility] Gastroenterology [address] [place] [phone] Johanna Martinez MD [facility] [address] [place] [address] 3087206 3 month follow up 06/28/2025 10:00 AM EDT [facility] Neurology Pain [address] 3708206 Wilma Lei, [address] [address] [phone] Follow up for pain Scheduled Procedures Name [...] documented as of this encounter Care Teams Axle And Frame Mechanic Relationship Specialty [place] [address] [place] [address] PCP - General Family Medicine 07/09/12 10/05/23 Shlomo Hu II, MD [address] [place] [address] [place] [address] PCP - General Internal Medicine 10/06/23 Jacob Sharp [address] [place] [address] Referring 04/30/[address] [place] [address] Registered Dietitian Nutrition 06/24/[address]508 [place] [address] Registered Dietitian Nutrition 08/27/23 Yuan Miller MD, PhD 9500 [place] [address] Surgeon General Surgery 02/03/24 documented as of this encounter
--- OUTSIDE RECORDS SUMMARY | 2025-04-09 11:54 | XMS_ITS | Encounter Summary ---
Author Organization [facility] Address [address] [facility] [place] [address] Care Team Providers Care Gasfitter Name Role Phone Shlomo Hu MD Primary Care Provider [phone] Jacob Sharp GROUND NUCLEAR WEAPONS ASSEMBLY OFFICER Unavailable [phone] Thursday, Toya FIXTURE DESIGNER Unavailable [phone] Shlomo Hu MD Unavailable [phone] Shante Kumar YACHT RIGGER-STEREO COMPILER Unavailable Claribel Scott RN Unavailable Jess Marsh FIXTURE DESIGNER Unavailable Esthela Tesfaye PEN RIDER Unavailable Encounter Details Date Type Department Care Team (Late st Contact Info) Description 04/12/2024 Abstract [facility] [place] [facility] 112 [facility] 110 [place] [address] Shlomo Hu MD 112 [facility] 110 [place], [place] [phone] Social History Tobacco Use Types Packs/Day Years [...] often do you attend [facility] or church services? 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 Not on file Not on file documented as of this encounter Plan of Treatment Upcoming Encounters Date Type Department Care Team (Late st Contact Info) Description 04/20/2025 3:00 PM EDT [facility] Visit [facility] [address] [place] [address] Sonny Rodriguez, DPM [address] [address] 05/04/2025 2:50 PM EDT Office Visit [facility] [address] [place] [address] Sonny Rodriguez, DPM [address] [address] documented as of this encounter Visit Diagnoses Not on filedocumented in this encounter Additional Health Concerns Assessment Noted Time PHQ-9 Depression Total Score: 9 08/26/20 23 1:30 PM EST documented as of this encounter Care Teams Gasfitter Relationship Specialty Start Date End Date Shlomo Hu MD [address] [facility] 110 [place] [address] PCP - General Internal Medicine 02/15/23 [place] [address] [place] [address] PCP - [place] [employer] 08/14/23 Shlomo Hu MD [address] [facility] 110 [place] [address] PCP - [place] [employer] 05/15/2407/14 Shante Kumar APRN-STEREO COMPILER [address] [place] [address] PCP - [place] [employer] 11Thursday, DUKE Pittman [address] [place] [address] Licensed Practical Nurse Family Medicine 01/19/24 10/21/24 Claribel Scott, RN [address] [place] [address] Licensed Practical Nurse Family Medicine 10/21/24 12/06/24 Jess Marsh LPN [address] [place] [address] 12/06/24 Esthela Tesfaye, KIRA 1479 [place] [address] Photonics Engineering Technician Family Medicine 02/03/25 documented as of this encounter
--- OUTSIDE RECORDS SUMMARY | 2025-04-09 11:54 | XMS_ITS | Encounter Summary ---
Author Organization [facility] Address [address] [place] [address] Care Team Providers Care Rn Hemodialysis Charge Name Role Phone Sean Ruiz Mona GALVEZ Primary Care Provider Jacob Sharp Unavailable Rasheeda Newton RD Unavailable [phone] Unavailable [phone] Fritz HENDERSON MD, Shlomo B Primary Care Provider [phone] Yuan Miller MD, PhD Unavailable [phone] Source Comments In the event this information is protected by the Federal Confidentiality of Alcohol and Drug AbusePatient Records regulations: The Federal rules restrict any use of the information to criminally investigate or prosecute any alcohol or drug abuse patient.[facility] Encounter Details Date Type Department Care Team (Late st Contact Info) Description 07/21/2016 Patient Msg Endocrinology 5001 [place] [address] Tai Dolan MD 3905 [facility] [address] [place] [address] RE: Request an Appointment Social [...] 04/10/2025 10:00 AM EDT Hospital Encounter Admitting [address] [place] [address] Yuan Miller MD, PhD [address] [place] [address] Nausea and vomiting, unspecified vomiting type [R11.2], H/O bariatric surgery [Z98.84], Jejunostomy tube fell out [T85.528A] 04/10/2025 10:00 AM EDT - 04/10/2025 12:00 PM EDT Surgery Admitting 9500 [place] [address] Yuan Miller MD, PhD 9500 [place] [address] LAPAROSCOPIC JEJUNOSTOMY 04/19/2025 11:00 AM EDT [facility] Neurological Buddhist [address] [phone] Joann Loera APRN.BARRATTE OPERATOR [address] [place] [address] [phone] Cognitive movement issues 04/21/2025 8:30 AM EDT [facility] Nutrition Therapy [address] [phone] Tiffany Banks, RD [address] [place] [phone] f/u TF forula tolerance and hydration 05/18/2025 9:00 AM EDT [facility] General Surgery [address] [place] [address] [id number] Michael Mora PA-C [address] [place] [address] [phone] f/u with michael mora in 2 wks 05/29/2025 9:00 AM EDT [facility] Gastroenterology [address] [place] [phone] Johanna Martinez MD [facility] [address] [place] [address] [phone] 3 month follow up 06/28/2025 10:00 AM EDT [facility] Neurology Pain [address] [place] [phone] [place] [address] [place] [address] Follow up for pain Scheduled Procedures Name [...] as of this encounter Care Teams Rn Hemodialysis Charge Relationship Specialty [place] [address] [place] [address] PCP - General Family Medicine 07/09/12 10/05/23 Shlomo Hu II, MD [address] [facility] 110 [place] [address] PCP - General Internal Medicine 10/06/23 Jacob Sharp [address] [place] [address] [phone] Referring 04/30/[address] [place] [address] Registered Dietitian Nutrition 06/24/[address]509 [place] [address] Registered Dietitian Nutrition 08/27/23 Yuan Miller MD, PhD 9506 [place] [address] Surgeon General Surgery 02/03/24 documented as of this encounter
--- OUTSIDE RECORDS SUMMARY | 2025-04-09 11:54 | XMS_ITS | Encounter Summary ---
Author Organization [facility] Address [address] [place] [address] Care Team Providers Care Journal Box Inspector Name Role Phone Jacob Sharp Unavailable Rasheeda Newton RD Unavailable [phone] Unavailable [phone] Fritz HENDERSON MD, Shlomo B Primary Care Provider [phone] Yuan Miller MD, PhD Unavailable [phone] Source Comments In the event this information is protected by the Federal Confidentiality of Alcohol and Drug AbusePatient Records regulations: The Federal rules restrict any use of the information to criminally investigate or prosecute any alcohol or drug abuse patient.[facility] Encounter Details Date Type Department Care Team (Late st Contact Info) Description 08/17/2024 Get Medical Advice General Surgery [address] [place] [address] Michael Mora PA-C [address] [place] [address] Infection Social History Tobacco Use Types Packs/Day Years Used Date Smoking Tobacco: Never Smokeless Tobacco: Never Alcohol Use Standard Drinks/Week Comments Not Currently 0 (1 standard drink = 0.6 oz pur e alcohol) [facility] Utilities Answer Date Recorded [...] is lower risk 4 03/05/2023 Data from: https://www.neighborhoodatlas.[facility]/. Last address used for calculation [address] 03/05/2023 Comments No [...] 10:00 AM EDT Hospital Encounter Admitting [address] [id number] Yuan Miller MD, PhD [address] [id number] Nausea and vomiting, unspecified vomiting type [R11.2], H/O bariatric surgery [Z98.84], Jejunostomy tube fell out [T85.528A] 04/10/2025 10:00 AM EDT - 04/10/2025 12:00 PM EDT Surgery Admitting [address] [id number] Yuan Miller MD, PhD [address] [id number] LAPAROSCOPIC JEJUNOSTOMY 04/19/2025 11:00 AM EDT [facility] Neurological Jewish [address] [place] [address] Joann Loera APRN.[employer] MANAGER [address] [id number] Cognitive movement issues 04/21/2025 8:30 AM EDT [facility] Nutrition Therapy [address] [id number] Tiffany Banks, RD [address] [place] [address] f/u TF forula tolerance and hydration 05/18/2025 9:00 AM EDT [facility] General Surgery [address] [place] [address] Michael Mora PA-C [address] [id number] f/u with michael mora in 2 wks 05/29/2025 9:00 AM EDT [facility] Gastroenterology [address] [id number] Johanna Martinez MD [facility] [address] [id number] 3 month follow up 06/28/2025 10:00 AM EDT [facility] Neurology Pain [address] [id number] [place] [address] [place], [place] [phone] Follow up for pain Scheduled Procedures Name Priority Associated Diagnoses Date/Ti me LAPAROSCOPIC JEJUNOSTOMY Nausea and vomiting, unspecified vomiting type H/O bariatric surgery Jejunostomy tube fell out 04/10/2025 10:00 AM EDT documented as of this encounter Visit Diagnoses Not on filedocumented in this encounter Care Teams Journal Box Inspector Relationship Specialty Start Date End Date Shlomo Hu II, MD [address] [place] [id number] PCP - General Internal Medicine 10/06/23 Jacob Sharp [id number] [phone] Referring 04/30/[address] [id number] Registered Dietitian Nutrition 06/24/[address] [place], [place] [phone] Registered Dietitian Nutrition 08/27/23 Yuan Miller MD, PhD [address] [place], [place] [id number] Surgeon General Surgery 02/03/24 documented as of this encounter
--- OUTSIDE RECORDS SUMMARY | 2025-04-09 11:54 | XMS_ITS | Clinical Summary ---
Author Organization [facility] Address [address] [place], [place] [address] Care Team Providers Care Agricultural Economics Professor Name Role Phone Jacob Sharp Unavailable Rasheeda Newton RD Unavailable [phone] Unavailable [phone] Fritz HENDERSON MD, Shlomo B Primary Care Provider [phone] Yuan Miller MD, PhD Unavailable [phone] Allergies Active Allergy Reactions Criticality Noted Date [...] COMPLIANCE) 1,000 mcg/mL kit 1 mL by INJECTION(UNSPEC IFIED PARENTERAL ROUTES) route one time a week. Active ALPRAZolam (XANAX) 0.5 mg tablet Take 0.5 mg by mouth at bedtime as needed. 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 Active MULTIVITAMIN-MARY GILLES FUMARATE-FOLIC ACID 18 MG-400 MCG TABLET Take 1 tablet by mouth once daily. 30 tablet 024 2025 Active pyridoxine, vitamin B6, (VITAMIN B6) 50 mg tablet Take 1 tablet by mouth once daily. 30 tablet Active thiamine (VITAMIN B1) 100 mg tablet Take 1 tablet by mouth once daily. 30 tablet Active acetaminophen (TYLENOL) 650 mg/20.3 mL soln Take 31.2 mL by mouth every 6 hours. Do not exceed 5 doses in 24 hours. 500 mL Active [place] misc 1 Units once daily. 1 Each Active methocarbamol (ROBAXIN) 750 mg tablet Take 1 tablet by mouth three times a day as needed (for muscle spasm). 20 tablet Active ondansetron orally disintegrating (ZOFRAN ODT) 8 mg disintegrating tablet Take 1 tablet by mouth every 8 hours as needed for nausea/vomiting. 30 tablet 1 Active Miscellaneous Medical SupplyIndication s:On tube feeding diet 1 Each once daily. please provide pt with flush bags for her EN needs. 30 Each 11 024 2024 Active Miscellaneous Medical SupplyIndication s:On tube feeding diet 1 Each as needed. please provide pt with EN pump for EN needs, supply new one as needed 1 Each 2 024 2024 Active zinc oxide-cod liver oil (DESITIN) 40 % paste Apply to affected area around J tube as directed. 120 g 1 Active nutritional supplement (PEPTAMEN 1.5) 0.068 gram- 1.5 kcal/mL Peptamen 1.5 or equal formula via J tube goa; rate 65 mL/hour x 12 hours water flush 60 mL, 6x/day 75237 mL 3 Active guar gum (NUTRISOURCE FIBER) packet Take 1 Packet by mouth two times a day. 60 Packet 11 02/14/2 025 Active enteral pump access.hydrolysi s (RELIZORB) crtg One cartridge daily via J tube 30 Each Active Colestipol HCl (COLESTID) 5 gram granules Take 5 g by mouth two times a day. 180 Packet Active nutritional supplement (PROSOURCE NO CARB) 15-60 gram-kcal/30 mL lipk 1 Package by ORAL/FEEDING TUBE route two times a day. 60 Packet 5 025 2024 Active Miscellaneous Medical Supply 1 Each one time a week. would like one pack per week of the Medline purple gently bath wipes 4 Each 5 025 2024 Active Miscellaneous Medical Supply kit 1 Each every 4 months. [employer] MiniOne low profile balloon gastrostomy button with ENFit extension set Size: 18 Fr x 2.5 cm Ref # : [id number] Change tube every 4 months. 1 Kit 025 2025 Active Miscellaneous Medical Supply 1 Each one time a week. [employer] 12 inch right angle connection feeding extension set Ref #: [id number] For use with AMT MiniOne low profile balloon jejunostomy feeding tube. Change the extension set weekly 1 Each Active Miscellaneous Medical SupplyIndication s:Jejunostomy tube present (HCC),On enteral nutrition 1 each as needed. Needs AMT 18 Fr x 2.5 cm low profile balloon J tube - ENFit 1 each 3 Active nutritional supplement (PEPTAMEN INTENSE VHP) 0.09 gram- 1 kcal/mLIndicatio ns:On tube feeding diet Via J tube: Peptamen Intense VHP Continuous/cycle d pump infusion of 105 mL/hr x 12 hours (1250 mL total/day) via Kangaroo Dung pump. water flush of 50 mL per 1 hour via feed and flush bag 16762 mL Active memantine (NAMENDA) 10 mg tabletIndication s:Chronic pain syndrome,Small fiber neuropathy Take 1 tablet by mouth two times a day. 60 tablet 1 Active suzetrigine (JOURNAVX) 50 mg tabletIndication s:Chronic pain syndrome,Viscera l hyperalgesia,Cece ralgia and neuritis,History of Priscila-en-Y gastric bypass,Generaliz ed abdominal pain,H/O gastric bypass,Pain at surgical site Trial Rx: Take 1 tab PO daily for acute pain 30 tablet Active lipase-protease- amylase (CREON) 36,000-114,000- 180,000 unit delayed release capsule Take 2 capsules by mouth three times a day with meals. 1 with snacks 600 capsule 1 2025 Active diphenhydrAMINE HCL (BENADRYL ALLERGY) 50 mg tablet Take 50 mg by mouth once daily as needed for cold/allergy symptoms. Active promethazine (PHENERGAN) 50 mg tab(s) Take 50 mg by mouth every 6 hours as needed for nausea/vomiting. Active rizatriptan (MAXALT) 10 mg tablet Take 10 mg by mouth as needed for migraine headache (see administration instructions). May repeat dose after 2 hours if needed. Maximum daily dose is 30 mg per day. Active traZODone (DESYREL) 100 mg tablet Take 100 mg by mouth daily at bedtime. Active gabapentin (NEURONTIN) 300 mg capsule Take 1,200 mg by mouth three times a day. Active naloxone 4 mg/actuation nasal spray (NARCAN) 1 spray by nasal (alternating) route. Use 1 spray in one nostril as needed for overdose. May repeat every 2 to 3 min in alternating nostrils until medical assistance is available Active pantoprazole DR (PROTONIX) 40 mg tablet Take 1 tablet by mouth daily at 6 am. 30 tablet 2024 Active oxyCODONE IR (ROXICODONE) 5 mg immediate release tabletIndication s:Intractable nausea and vomiting Take 1 tablet by mouth every 6 hours as needed for up to 7 days. 15 tablet 2024 Active azithromycin (ZITHROMAX) 250 mg tablet Take 1 tablet by mouth once daily for 7 days. Patient should start on April 05, 2025. 7 tablet 025 2024 Active lactobacillus rhamnosus (CULTURELLE) 10 billion cell capsule Take 1 capsule by mouth once daily. 30 capsule 025 2024 Active venlafaxine (EFFEXOR) 75 mg tablet Take 1 tablet by mouth two times a day. 60 tablet 024 2024 Discontinued(A djust Sig - Block E-Cancel) traZODone (DESYREL) 100 mg tablet 200 mg at bedtime 2024 Discontinued(D [place] adjustment) tiZANidine (ZANAFLEX) 4 mg tablet Take 1 tablet by mouth every 6 hours. 10 tablet [address] (PROTONIX) 40 mg tablet Take 1 tablet by mouth two times a day before meals 60 tablet 2024 Discontinued naloxone 4 mg/actuation nasal spray (NARCAN) Use 1 spray in one nostril as needed for narcotic overdose. May repeat every 2 to 3 min in alternating nostrils until medical assistance is available 2 Each 2024 Discontinued(A djust Sig - Block E-Cancel) Miscellaneous Medical SupplyIndication s:On enteral nutrition at home,Jejunostomy tube present (HCC) 8 Each once daily. needs 4x4 split guaze to change dressing around J tube up to 8 times daily and as needed 240 Each 11 2024 gabapentin (NEURONTIN) 600 mg tabletIndication s:Visceral hyperalgesia,Cece ralgia and neuritis,Chronic pain syndrome,History of Priscila-en-Y gastric bypass Dose clarification: Take gabapentin 300mg + 600mg PO TID. Do not adjust dose upward without written Rx instructions from your physician. See attached Rx. 90 tablet 5 025 2024 Discontinued(A djust Sig - Block E-Cancel) gabapentin (NEURONTIN) 300 mg capsuleIndicatio ns:Visceral hyperalgesia,Cece ralgia and neuritis,Chronic pain syndrome,History of Priscila-en-Y gastric bypass Dose clarification: Take gabapentin 300mg + 600mg PO TID. Do not adjust dose upward without written Rx instructions from your physician. See attached Rx. 90 capsule 5 025 2024 Discontinued(A djust Sig - Block E-Cancel) suzetrigine (JOURNAVX) 50 mg tabletIndication s:Visceral hyperalgesia,Cece ralgia and neuritis,Chronic pain syndrome,History of Priscila-en-Y gastric bypass,Generaliz ed abdominal pain,H/O gastric bypass,Pain at surgical site Trial Rx: Take 1 tab PO daily for acute pain 30 tablet 025 2024 Discontinued memantine (NAMENDA) 10 mg tabletIndication s:Chronic pain syndrome,Small fiber neuropathy Take 1 tablet by mouth two times a day. 60 tablet 1 025 2024 Discontinued lipase-protease- amylase (CREON) 36,000-114,000- 180,000 unit delayed release capsule Take 2 capsules by mouth three times a day with meals. 1 with snacks 600 capsule 1 025 2024 Discontinued oxyCODONE IR (ROXICODONE) 5 mg immediate release tablet Take 5 mg by mouth every 6 hours as needed for pain. 0 025 2024 Discontinued eletriptan (RELPAX) 40 mg tablet Take 40 mg by mouth as needed for migraine headache (see administration instructions). May repeat dose after 2 hours if needed. Maximum daily dose is 80 mg per day. 2024 Discontinued(A djust Sig - Block E-Cancel) Active Problems Problem Noted Date Diagnosed Date Campylobacter diarrhea 04/01/2025 Intractable nausea and vomiting 03/31/2025 Chronic constipation 10/26/2024 Feeding difficulties 10/25/2024 Alteration [...] 1:27 PM EDT): Assessment: Follows with Psychology/Neurologic buddhist started on memantine (NAMENDA) for Cognitive communication deficit Pt. reports OK Cognitive communication deficit 05/11/2024 Apraxia of speech 05/11/2024 Somatic symptom disorder 04/18/2024 Recurrent major depressive disorder, in partial remission 04/18/2024 Assessment & Plan (07/05/2024 1:25 PM EDT): Assessment: Pt. reports mood is stable with medication Follows with Psychology/Neurologic buddhist Right arm weakness 04/15/2024 Chronic diarrhea 04/12/2024 [...] Assessment: Follows with Pain Management and Psychology/Neurologic buddhist Assessment & Plan (02/03/2024 10:28 AM EDT): [...] to lose weight Excess skin of arm Localized adiposity 08/12/20 Encounters Date Type Department Care Team Description 04/04/2025 Patient Update General Surgery [address] [phone] Yenny Cast RN 04/10/2025 04/03/2025 11:59 PM EDT Anesthesia Event [facility] Surgical Services [address] [facility] [place] [phone] Maylin Bradshaw APRN.INTENSIVE CARE NURSE 04/03/2025 Telephone Gastroenterology [address] [place] [address] Yuan Miller MD, PhD Appointment 04/02/2025 Get Medical Advice General Surgery [address] [phone] Yuan Miller MD, PhD Feeding tube 03/31/2025 Get Medical Advice General Surgery [address] [phone] Sanford March MD Feeding tube 03/31/2025 Travel 03/30/2025 5:04 PM EDT - 04/04/2025 3:23 PM EDT Hospital Encounter [facility] [address] [phone] Rivera Andersen DO Chau, Nathalie, DO Repenning, Dennis Benjamin, MD Pestak, Regina Marie, DO Intractable nausea and vomiting [R11.2] Discharge Disposition: Home 03/30/2025 Travel 03/30/2025 Telephone Medical Care at Home [address] [place] [address] [address] [phone] Nhi Moody APRN.WASTE RECLAIMER Initial Consult (Urgent Dispatch) 03/30/2025 Orders Only General Surgery [address] [phone] Yenny Cast RN Dehydration (Primary Dx); H/O bariatric surgery 03/29/2025 Patient Update General Surgery [address] [phone] Yenny Cast RN 04/03/2025 03/29/2025 Travel 03/28/2025 Patient Msg HOSP MAIN H060 [address] [place], [place] [phone] Provider, Ccf Sign up to manage your digestive symptoms in between visits, covered by insurance 03/28/2025 Telephone Gastroenterology [address] [place] [phone] Yuan Miller MD, PhD Appointment 03/27/2025 Telephone Gastroenterology [address] [place], [place] [phone] Johanna Martinez MD letter of medical necessity for EN 03/22/2025 [place] [address] Provider, Ccf Sign up to manage your digestive symptoms in between visits, covered by insurance 03/21/2025 Patient Msg Gastroenterology [address] [place], [place] [phone] Provider, Ccf Rafael RX prescription services for Creon 03/16/2025 Telephone Gastroenterology [address] [place], [place] [phone] Johanna Martinez MD tube supplies 03/15/2025 11:00 AM EDT [facility] Neurology Pain [address] [phone] Wilma Lei DO Chronic pain syndrome; Small fiber neuropathy; Visceral hyperalgesia; Neuralgia and neuritis; History of Priscila-en-Y gastric bypass; Generalized abdominal pain; H/O gastric bypass; Pain at surgical site 03/15/2025 Telephone Gastroenterology [address] [place], [place] [phone] Johanna Martinez MD insurane authorization for Relizorb 03/09/2025 Patient Msg Gastroenterology [address] [phone] Provider, Ccf new update on formula 03/09/2025 Patient Msg Gastroenterology [address] [address] Provider, Ccf follow up on supplies 03/08/2025 Telephone Gastroenterology [address] [place], [place] [phone] Johanna Martinez MD supplies for tube 03/03/2025 Telephone Gastroenterology [address] [place], [place] [phone] Johanna Martinez MD Insurance Authorization (for creon) 03/02/2025 10:00 AM EDT [facility] [address] [facility] [place] [id number] Junior Wilder, Therapist Pain disorder associated with psychological factors and medical condition (Primary Dx) 03/02/2025 Telephone Hematology/Oncolog y [address] [phone] Jeanna Reed APRN.WASTE RECLAIMER Humidifier Operator - Other (Orders need to be faxed) 02/28/2025 11:00 AM EDT [facility] Gastroenterology [address] [place], [place] [phone] Tiffany Banks RD Dietary counseling and surveillance (Primary Dx) 02/28/2025 Telephone Gastroenterology [address] [place], [place] [phone] Tiffany Banks RD Orders (Tube feeding ) 02/27/2025 Telephone Gastroenterology [address] [place], [place] [phone] Johanna Martinez MD Medication Question 02/27/2025 Telephone Gastroenterology [address] [place], [place] [phone] Johanna Martinez MD tube orders 02/23/2025 3:30 PM EDT [facility] Gastroenterology [address] [place], [place] [phone] Johanna Martinez MD On enteral nutrition (Primary Dx); Jejunostomy tube present (HCC); Exocrine pancreatic insufficiency (HCC); Chronic nausea; Overflow diarrhea 02/22/2025 Travel 02/21/2025 Telephone Community Outreach [address] [address] Kaylie Diaz APRN.CNP 02/21/2025 Orders [place]ology[place] [address] [place] [address] Kaylie Diaz, FURNITURE LUMBER PRODUCTION WORKER.WASTE RECLAIMER Abnormal mammogram of right breast (Primary Dx) 02/20/2025 Orders Only Hematology/Oncolog y [address] [place] [address] Kaylie Diaz, FURNITURE LUMBER PRODUCTION WORKER.WASTE RECLAIMER Abnormal mammogram of right breast (Primary Dx) 02/16/2025 9:35 AM EDT - 02/16/2025 11:59 PM EDT Hospital Encounter Radiology [address] [place] [address] Discharge Disposition: Home 02/16/2025 9:13 AM EDT - 02/16/2025 9:34 AM EDT Hospital Encounter Radiology [address] [address] Discharge Disposition: Home 02/16/2025 Get Medical Advice [address] [place] [address] [place] [address] Johann Echeverria MD Neuropathy pain 02/15/2025 3:00 PM EDT - 02/15/2025 11:59 PM EDT Hospital Encounter [facility]IO [facility] [address] [address] Encounter for screening mammogram for malignant neoplasm of breast [Z12.31] Discharge Disposition: Home 02/15/2025 Patient Outreach Community Outreach [address] [address] Required, No Follow Up COMMUNITY OUTREACH (Mammogram Screening/mmo); Community outreac (Mammogram Screening/ Results) 02/15/2025 Get Medical Advice [facility] [place] [address] [place] [address] Johann Echeverria MD Medication 02/15/2025 MC Get Medical Advice [place] [place] [address] [place] [address] Johann Echeverria MD JOURNAVX 02/15/2025 Get Medical Advice [place] [place] [address] [place] [address] Johann Echeverria MD JOURNAVX 02/09/2025 Refill [facility] [place] [address] [place] [address] Johann Echeverria MD Refill Request 02/09/2025 Refill [facility] [place] [address] [place] [address] Jhoann Echeverria MD Refill Request 02/08/2025 4:00 PM EDT [facility] [address] [facility] [place] [phone] Wilma Lei DO Chronic pain syndrome (Primary Dx); Small fiber neuropathy 02/01/2025 Telephone Transplant Center [address] [phone] Main, Intestinal Trans Coord Orders 01/31/2025 Patient [facility] Neurological [facility]ism [address] [facility] [place] [address]406 Tonya Acosta LISW In home help resources 01/25/2025 Telephone Transplant Center [address] [place], [place] [phone] Main, Intestinal Trans Coord Return Call Request 01/25/2025 Get Medical Advice Rheumatology [address] [phone] Melina Estrada MD Missed appointment 01/24/2025 Telephone Gastroenterology [address] [phone] Johanna Martinez MD tube orders 01/19/2025 Travel 01/19/2025 Get Medical Advice [facility] [address] [phone] Kadeem Juan MD therapy treatment plan 01/17/2025 Patient [facility] HB[facility] [place] [address] Moraima Araya RPh At your next appointment, choose [facility]. 01/17/2025 Patient [facility] [place] [address] Moraima Araya RPh At your next appointment, choose [facility]. from Last 3 Months Immunizations Immunization Administration [...] drink = 0.6 oz pur e alcohol) [facility] Utilities Answer Date Recorded In the past 12 months has [employer], gas, oil, or water [employer] threatened to shut off services in your [...] any time in the past 12 m [facility], were you homeless or living in a skilled nursing (including now)? No 04/03/2025 Area Deprivation Index Answer Date Reagan rded National Score (1-100), lower number is lower ri sk 63 03/05/2023 State Score (1-10), lower number is lower risk 4 03/05/2023 Data from: https://www.neighborhoodatlas.medicine.[facility].edu/. Last address used for calculation [address] [...] Travel Start Travel End [place] 03/18/2025 03/26/2025 Last Filed Vital Signs Vital Sign Reading [...] Mass Index 29.23 03/31/2025 9:25 AM EDT Plan of Treatment Upcoming Encounters Date Type Department Care Team (Latest Contact Info) Description 04/10/2025 10:00 AM EDT Hospital Encounter Admitting [address] [place] [address] Yuan Miller MD, PhD [address] [place] [address] Nausea and vomiting, unspecified vomiting type [R11.2], H/O bariatric surgery [Z98.84], Jejunostomy tube fell out [T85.528A] 04/10/2025 10:00 AM EDT - 04/10/2025 12:00 PM EDT Surgery Admitting [address] [place] [address] Yuan Miller MD, PhD [address] [place] [address] LAPAROSCOPIC JEJUNOSTOMY 04/19/2025 11:00 AM EDT [facility] Neurological [facility] [address] [phone] Joann Loera, FURNITURE LUMBER PRODUCTION WORKER.WASTE RECLAIMER [address] [place] [address] Cognitive movement issues 04/21/2025 8:30 AM EDT [facility] Nutrition Therapy [address] [address] Tiffany Banks, RD [address] [place] [address] f/u TF forula tolerance and hydration 05/18/2025 9:00 AM EDT [facility] General Surgery [address] [place] [address] Michael Mora PA-C [address] [phone] f/u with michael mora in 2 wks 05/29/2025 9:00 AM EDT [facility] Gastroenterology [address] [address] Johanna Martinez MD [facility] [address] [address] 3 month follow up 06/28/2025 10:00 AM EDT [facility] Neurology Pain [address] [place] [address] [place] [address] [place] [address] Follow up for pain Scheduled Procedures Name Priority Associated Diagnoses Date/Ti me LAPAROSCOPIC JEJUNOSTOMY Nausea and vomiting, unspecified vomiting type H/O bariatric surgery Jejunostomy tube fell out 04/10/2025 10:00 AM EDT Health Maintenance Due Date Last Done Comments [...] 04/23/2023, 04/14, 04/10/2023 Colorectal Cancer Screening 04/23/2024 Influenza Vaccine (#1) 2025 , 08/09/2023, 06/16/2022, Additional history exists Mammogram Screening 03/09/2026 03/09/2025, 02/15/2025, 06/03/2023, Additional history exists Diabetes Screening 04/03/2028 04/03/2025, 0 04/02/2025, 03/31/2025, Additional history exists HIV Screening Completed 12/08/2024, 01/13, 02/03/2024 Medical Devices Implanted Type Area Materials Clerk Device Identifier Shelf Expiration Date Model / Serial / Lot Amt Mini One 14 Fr 6.0cm Low Profile- Implanted:2023 by Johanna Martinez MD (Quantity not on file) Tube Abdomen 12/13/2026 [id number] / / [id number] Tube [employer]Darren 16fr Standard J Silicone Jejunostomy Trimmable Distal - [id number] Implanted:Qty: 1 on 07/07/2024 at [facility] Tube Left: Abdomen [facility] 09/15/2025199- / / [id number] Explanted Type Area Materials Clerk Device Identifier Shelf Expiration Date Model / Serial / Lot Tube [employer]Dar[employer] 16fr Standard J Silicone Jejunostomy Trimmable Distal - [id number] Implanted:Qty: 1 on 01/11/2024 at [facility] Explanted:2023 (Quantity not on file) Tube Left: Abdomen [facility] 09/15/2025199-16 / / [id number] Procedures Procedure Name Priority Date/Time Associated Diagnosis Comments LIPASE BLD Routine 04/03/2025 5:49 AM EDT COMPREHENSIVE METABOLIC PANEL Routine 04/03/2025 5:49 AM EDT BASIC METABOLIC PANEL Routine 04/02/2025 5:36 AM EDT COMPLETE BLOOD COUNT Routine 04/02/2025 5:36 AM EDT SEPSIS LACTATE [...] BLOOD COUNT STAT 03/30/2025 6:05 PM EDT XR UPPER GI SINGLE CONTRAST 02/16/2025 12:45 [...] (dyspnea on exertion) Alkaline phosphatase elevation RIBOSOMAL DOBIE MAN AB BLD Routine 01/23/2025 11:47 AM EDT [...] PACHECO (dyspnea on exertion) Alkaline phosphatase elevation DOBIE MAN ANTIBODY BLOOD Routine 01/23/2025 11 :47 AM [...] PACHECO (dyspnea on exertion) Alkaline phosphatase elevation HIV 1/2 COMBO WITH REFLEX TO DIFFERENTIATION Routine 02/03/2024 9:27 AM EDT Disturbance of skin sensation Neuropathic pain Myofascial pain syndrome Antalgic gait At high risk for malnutrition At risk for peripheral neuropathy Stroke-like symptoms COLONOSCOPY DIAGNOSTIC Routine 7:15 AM EDT from Last 3 Months or Most Recently Relevant to Health Maintenance Results * (ABNORMAL) LIPASE (04/03/2025 5:49 AM EDT) Only the most recent of2 resultswithin the time period is included. Pathologist [facility] Lipase 9(L) 16 - 61 U/L 04/03/2025 7:21 AM EDT [facility] Blood BLOOD SPECIMEN / Unknown Venipuncture / Unknown 04/03/2025 5:49 AM EDT 04/03/2025 6:14 AM EDT us Hernandez Caban MD LABORATORY Fin al Result [facility] [address] [place] [address], * (ABNORMAL) COMPREHENSIVE METABOLIC PANEL (04/03/2025 5:49 AM EDT) Only the most recent of2 resultswithin the time period is included. Pathologist [facility] Protein, Total 4.8(L) 6.3 - 8.0 g/dL 04/03/2025 7:21 AM EDT [facility] Albumin 2.7(L) 3.9 - 4.9 g/dL 04/03/2025 7:21 AM EDT [facility] Calcium, Total 8.0(L) 8.5 - 10.2 mg/dL 04/03/2025 7:21 AM EDT [facility] Bilirubin, Total 0.2 0.2 - 1.3 mg/dL 04/03/2025 [facility] Alkaline Phosphatase 90 34 - 123 U/L 04/03/2025 7:[facility] AST 12(L) 13 - 35 U/L 04/03/2025 7:21 AM EDT [facility] ALT 9 7 - 38 U/L 04/03/2025 7:21 AM EDT [facility] Glucose 84 74 - 99 mg/dL 04/03/2025 7:[facility] Comment: The [place] Diabetes Association (ADA) provides guidance for cutoff [...] Standards of Medical Care in Diabetes 2016, [place] [employer]. Diabetes Care. 2016.39(Suppl 1). BUN 10 7 - 21 mg/dL 04/03/2025 7:21 AM EDT [facility] Creatinine 0.64 0.58 - 0.96 mg/dL 04/03/2025 7:21 AM EDT [facility] Sodium 142 136 - 144 mmol/L 04/03/2025 7:21 AM EDT [facility] Potassium 3.9 3.7 - 5.1 mmol/L 04/03/2025 7:21 AM EDT [facility] Chloride 109(H) 98 - 107 mmol/L 04/03/2025 7:21 AM EDT [facility] CO2 28 22 - 30 mmol/L 04/03/2025 7:21 AM EDT [facility] Anion Gap 5(L) 8 - 15 mmol/L 04/03/2025 7:21 AM EDT [facility] Estimated Glomerular Filtration Rate 109 >=60 mL/min/1. 73m 04/03/2025 7:21 AM EDT [facility] Comment:Estimated Glomerular Filtration Rate (eGFR) is [...] Hernandez Caban MD LABORATORY Fin al Result [facility] [address] * (ABNORMAL) COMPLETE BLOOD COUNT (04/02/2025 5:36 AM EDT) Only the most recent of2 resultswithin the time period is included. WBC 6.55 3.70 - 11.00 k/uL 04/02/2025 7:12 AM EDT [facility] RBC 3.84(L) 3.90 - 5.20 m/uL 04/02/2025 7:12 AM EDT [facility] Hemoglobin 10.7(L) 11.5 - 15.5 g/dL 04/02/2025 7:12 AM EDT [facility] Hematocrit 33.2(L) 36.0 - 46.0 % 04/02/2025 7:12 AM EDT [facility] MCV 86.5 80.0 - 100.0 fL 04/02/2025 7:12 AM EDT [facility] MCH 27.9 26.0 - 34.0 pg 04/02/2025 7:12 AM EDT [facility] MCHC 32.2 30.5 - 36.0 g/dL 04/02/2025 7:12 AM EDT [facility] RDW-CV 14.4 11.5 - 15.0 % 04/02/2025 7:12 AM EDT [facility] Platelet Count 321 150 - 400 k/uL 04/02/2025 7:12 AM EDT [facility] MPV 9.4 9.0 - 12.7 fL 04/02/2025 [facility] Absolute nRBC <0.01 <0.01 k/uL 04/02/2025 7:[facility] Blood BLOOD SPECIMEN / Unknown Venipuncture / Unknown 04/02/2025 5:36 AM EDT 04/02/2025 6:28 AM EDT us Hernandez Caban MD LABORATORY Fin al Result [facility] [address] [place] [address], * (ABNORMAL) BASIC METABOLIC PANEL (04/02/2025 5:36 AM EDT) Only the most recent of2 resultswithin the time period is included. [facility] Glucose 87 74 - 99 mg/dL 04/02/2025 7:05 AM EDT [facility] Comment: The [place] Diabetes Association (ADA) provides guidance for cutoff [...] Standards of Medical Care in Diabetes 2016, [place] [employer] Association. Diabetes Care. 2016.39(Suppl 1). BUN 10 7 - 21 mg/dL 04/02/2025 7:[facility] Creatinine 0.67 0.58 - 0.96 mg/dL 04/02/2025 7:05 [facility] Sodium 141 136 - 144 mmol/L 04/02/2025 7:05 [facility] Potassium 3.7 3.7 - 5.1 mmol/L 04/02/2025 7:05 AM [facility] Chloride 108(H) 98 - 107 mmol/L 04/02/2025 7:05 [facility] CO2 24 22 - 30 mmol/L 04/02/2025 7:05 [facility] Anion Gap 9 8 - 15 mmol/L 04/02/2025 7:05 AM EDT [facility] Calcium, Total 8.2(L) 8.5 - 10.2 mg/dL 04/02/2025 7:05 AM [facility] Estimated Glomerular Filtration Rate 108 >=60 mL/min/1. 73m 04/02/2025 7:05 AM [facility] Comment:Estimated Glomerular Filtration Rate (eGFR) [...] Hernandez Caban MD LABORATORY Fin al Result [facility] [address] [place] [address], * SEPSIS LACTATE (04/02/2025 12:46 AM EDT) Pathologist [facility] Sepsis Lactate 0.7 <=2.0 mmol/L 04/02/2025 12:55 AM EDT [facility] Blood BLOOD SPECIMEN / Unknown Venipuncture / Unknown 04/02/2025 12:46 AM EDT 04/02/2025 12:51 AM EDT us Hernandez Caban MD BLOOD GASES Fin al Result [facility] [address] [place] [address], * (ABNORMAL) URINALYSIS (WITH MICROSCOPIC) WITH CULTURE IF INDICATED (03/31/2025 1:01 PM EDT) Pathologist [facility] Color Yellow Yellow 03/31/2025 1:38 PM EDT [facility] Clarity Clear Clear 03/31/2025 1:38 PM EDT [facility] Glucose, Urine Negative Trace, Negative 03/31/2025 1:38 PM EDT [facility] Bilirubin, Urine Negative Negative 03/31/20 25 1:38 PM EDT [facility] Ketones, Urine Negative Negative, Trace 03/31/2025 1:38 PM EDT [facility] Specific Thornton, Ur 1.044(H) 1.005 - 1.030 03/31/2025 1:38 PM EDT [facility] Hemoglobin/Blood ,Ur Negative Negative, Trace 03/31/2025 1:38 PM EDT [facility] pH, Urine 6.0 5.0 - 8.0 03/31/2025 1:38 PM EDT [facility] Protein, Urine 1+(A) Trace, Negative 03/31/2025 1:38 PM EDT [facility] Urobilinogen Normal Normal 03/31/2025 1:38 PM EDT [facility] Nitrites Negative Negative 03/31/2025 1:38 PM EDT [facility] Leuk Esterase Negative Negative, 25 Danielle/uL 03/31/2025 1:38 PM EDT [facility] WBC, Urine 6-10 /HPF(A) 0-5 /HPF 03/31/2025 1:38 PM EDT [facility] RBC, Urine 0-3 /HPF 0-3 /HPF 03/31/2025 1:38 PM EDT [facility] Squamous Epithelial Cells Few /HPF 03/31/2025 1:38 PM EDT [facility] Urine MID-STREAM URINE SPECIMEN / Unknown Non Blood / Unknown 03/31/2025 1:01 PM EDT 03/31/2025 1:21 PM EDT Mary Escamilla DO LABORATORY Final Result Performing Organization Address [facility]/ZIP Co de Phone Number [facility] [address] [place] [address], [place] * GLUCOSE, BLOOD (POC) (03/31/2025 12:56 PM EDT) Pathologist [facility] Glucose, Point of Care 96 74 - 99 mg/dL [facility] Comment: Location:[facility], [id number] [place] [address], [facility] The Accu-Chek Inform II glucose meter has [...] above situations. 03/31/2025 12:5 6 PM EDT Rafia Perez DO POC TESTING Final Result Performing Organization Address [facility] Co de Phone Number [facility] [address] [place], [place] * CLOSTRIDIUM DIFFICILE TOXIN BY PCR (03/31/2025 8:02 AM EDT) C. difficile PCR Negative for C. difficile toxin by PCR Negative for C. difficile toxin by PCR [employer] COVID19 03/31/2025 5:48 PM EDT [facility] Stool STOOL SPECIMEN / Unknown Non Blood / Unknown 03/31/2025 8:02 AM EDT 03/31/2025 8:06 AM EDT Rivera Andersen DO LABORATORY Final Result [facility] [address] [place] [id number], [place] * (ABNORMAL) ENTERIC BACTERIAL PANEL BY PCR (03/31/2025 8:02 AM EDT) Campylobacter species (C. jejuni/C. coli) DNA Detected(A) Not Detected 03/31/2025 10:20 PM EDT [facility] Salmonella species DNA Not detected Not Detected 03/31/2025 10:20 PM EDT [facility] Shiga-like toxin producing E. coli (STEC) DNA Not detected Not Detected 03/31/2025 10:20 PM EDT [facility] Shigella/Enteroin vasive E. coli (EIEC) DNA Not detected Not Detected 03/31/2025 10:20 PM EDT [facility] Stool STOOL SPECIMEN / Unknown Non Blood / Unknown 03/31/2025 8:02 AM EDT 03/31/2025 8:06 AM EDT Rivera Andersen DO LABORATORY Final Result Performing Organization Address [facility]/ZIP Co de Phone Number [facility] [address] [place] [id number], [place] * MAGNESIUM (03/31/2025 6:41 AM EDT) Pathologist [facility] Magnesium 2.1 1.7 - 2.3 mg/dL 03/31/2025 11:36 AM EDT [facility] Blood BLOOD SPECIMEN / Unknown Venipuncture / Unknown 03/31/2025 6:41 AM EDT 03/31/2025 7:04 AM EDT Rafia Perez DO LABORATORY Final Result [facility] [address] [place] [address], [place] * CT ABD/PEL W IVCON (03/30/2025 8:46 PM EDT) Anatomical Region Laterality Modality Abdomen Computed Tomogra phy 03/30/2025 8:46 PM EDT Impressions 03/30/2025 10:37 PM EDT IMPRESSION: 1. Appendix appears unremarkable and no bowel obstruction or free air. 2. Details above. Environmental Advisor: PSCB Transcribe Date/Time: Mar 30 2025 10:26P [...] images: No additional findings. Procedure Note Provider, [facility] [place] - 03/30/2025 * * *Final Report* * [...] obstruction or free air. 2. Details above. Environmental Advisor: ZACHERY Transcribe Date/Time: Mar 30 2025 10:26P Dictated by : MAYRA MOFFETT MD This examination was interpreted and the report reviewed and electronically signed by: MAYRA MOFFETT MD on Mar 30 2025 10:35PM EST Mary N Andi DO CT-PAMA Final Result * HCG QUANTITATIVE (03/30/2025 7:39 PM EDT) hCG Quantitative, Blood 3.4 <5.0 mIU/mL 03/30/2025 8:38 PM EDT [facility] Comment:Negative Blood BLOOD SPECIMEN / Unknown Venipuncture / Unknown 03/30/2025 7:39 PM EDT 03/30/2025 7:57 PM EDT [facility] Final Result Performing Organization Address City/[facility]/ZIP Co de Phone Number [facility] [address] [place] [address], [place] * (ABNORMAL) UA DIP,URINE HCG(ED-POC) (03/30/2025 6:19 PM EDT) Urine hCG (POCT) Positive(A) Negative [facility] Veterinarian Helper (POCT) Internal QC OK [facility] 03/30/2025 6:19 PM EDT [facility] Provider POC TESTING Final Result Performing Organization Address [facility] Co de Phone Number [facility] * XR SMALL BOWEL SERIES (02/16/2025 12:45 PM EDT) Anatomical Region Laterality Modality Abdomen Radiographic Edwige ging 02/16/2025 12:4 5 PM EDT Impressions 02/16/2025 3:59 PM EDT IMPRESSION: PRISCILA-EN-Y ANATOMY WITHOUT DELAYED TRANSIT INTO THE SMALL BOWEL. NO SMALL BOWEL DILATION. 150 MINUTE TRANSIT TIME TO THE COLON. Environmental Advisor: PSCB Transcribe Date/Time: Feb 16 2025 3:25P [...] filling defect, or stricture. Procedure Note Provider, [facility] [place] - 02/16/2025 * * *Final Report* * [...] 150 MINUTE TRANSIT TIME TO THE COLON. Environmental Advisor: [facility] SERVICES[facility]iliane Transcribe Date/Time: Feb 16 2025 3:25P Dictated [...] 150 MINUTE TRANSIT TIME TO THE COLON. Environmental Advisor: [facility] Transcribe Date/Time: Feb 16 2025 [...] filling defect, or stricture. Procedure Note Provider, [facility] [place] - 02/16/2025 * * *Final Report* * [...] 150 MINUTE TRANSIT TIME TO THE COLON. Environmental Advisor: PSCB Transcribe Date/Time: Feb 16 2025 3:25P Dictated by : MANUELITO HENSLEY MD This examination was interpreted and the report reviewed and electronically signed by: MANUELITO HENSLEY MD on Feb 16 2025 3:57PM EST Helene HULL-PAMDiony Final Re sult * CT CHEST WO IVCON (02/16/2025 9:35 AM EDT) Anatomical Region Laterality Modality Chest Computed Tomogra phy 02/16/2025 9:35 AM EDT Impressions 02/16/2025 9:54 AM EDT IMPRESSION: 1. The left upper lobe nodule has resolved. Otherwise unremarkable chest CT with no new or growing lung nodules. Environmental Advisor: ZACHERY Transcribe Date/Time: Feb 16 2025 9:44A Dictated by : ZAHIRA WILDE MD This examination was interpreted and the report reviewed and electronically signed by: ZAHIRA WILDE MD on Feb 16 2025 9:52AM EST Narrative 02/16/2025 9:54 AM EDT * * *Final Report* * * DATE OF EXAM: Feb 16 2025 9:35AM [facility] 0541 - CT CHEST WO IVCON / [...] an object and had initial x-rays at [facility] with negative findings. Patient complaints of continued [...] images: No additional findings. Procedure Note Provider, [facility] [place] - 02/16/2025 * * *Final Report* * * DATE OF EXAM: Feb 16 2025 9:35AM [facility] 0541 - CT CHEST WO IVCON / [...] an object and had initial x-rays at [facility] with negative findings. Patient complaints of continued [...] with no new or growing lung nodules. Environmental Advisor: ZACHERY Transcribe Date/Time: Feb 16 2025 9:44A Dictated [...] if the patient has dense breast tissue. REF#[id number]. Interpreting Radiologist: Pili Villar M.D. Electronically signed on: 02/17/2025 Environmental Advisor: TIANNA Transcribe Date/Time: Feb 15 2025 3:08P [...] Interpretation * * * * RESULT: [address] [place] [address] #[id number] - JEMAL SCREENING W LINDSAY HISTORY: 49 [...] in the left breast. Procedure Note Provider, [facility] [place] - 02/17/2025 * * *Final Report* * * DATE OF EXAM: Feb 15 2025 3:25PM [id number] - JEMAL SCREENING W LINDSAY / PROCEDURE REASON: Encounter for screening mammogram for malignant neoplasm of breast * * * * Physician Interpretation * * * * RESULT: [address] [place] [id number] #[id number] - JEMAL SCREENING W LINDSAY HISTORY: 49 [...] if the patient has dense breast tissue. REF#[id number]. Interpreting Radiologist: Pili Villar M.D. Electronically signed on: 02/17/2025 Environmental Advisor: TIANNA Transcribe Date/Time: Feb 15 2025 3:08P Dictated by : PILI VILLAR MD This examination was interpreted and the report reviewed and electronically signed by: PILI VILLAR MD on Feb 17 2025 10:39AM EST us Kaylie Diaz APRN.WASTE RECLAIMER JEMAL-PAMA Final Res ult * PT ED PATIENT INFORMATION (02/10/2025) 02/10/2025 Narrative [facility] - 03/13/2025 Provider PLESCIA your patient MELINA TAVERAS has not started their Sabas program, time has . Sabas program: PATIENT SAFETY INSTRUCTIONS FOR HEALTHCARE SETTINGS us Michael Mora PA-C [facility] Final Result Performing Organization Address [facility]/ZIP Co de Phone Number [facility] * PROTEIN / CREATININE RATIO (01/23/2025 11:49 AM EDT) Protein, Urine Random 13 0 - 20 mg/dL 01/24/2025 7:12 PM EDT [facility] Creatinine, Ur Random (UCRR) 103.4 20.0 - 300.0 mg/dL 01/24/2025 7:12 PM EDT [facility] Protein/Creat Ratio 0.13 <0.15 mg/mg 01/24/2025 7:12 PM EDT [facility] Comment: Adult Proteinuria Categories: <0.15 mg/mg [...] EDT 01/23/2025 11:49 AM EDT us Melina Etsrada MD LABORATORY Final Result Performing Organization Address [facility]/ZIP Co de Phone Number [facility] [address] [place] [address], * URINE PROTEIN ELECTROPHORESIS RANDOM (P) (01/23/2025 11:49 AM EDT) Albumin %, Urine (Prot Electro) 29.36 % 01/25/2025 7:45 AM EDT [facility] Alpha 1 Globulin %, Urine 3.02 % 01/25/2025 7:45 AM EDT [facility] Alpha 2 Globulin %, Urine 16.80 % 01/25/2025 7:45 AM EDT [facility] Beta Globulin %, Urine 30.60 % 01/25/2025 7:45 AM EDT [facility] Gamma Globulin %, Urine 20.21 % 01/25/2025 7:45 AM EDT [facility] Interpretation (Urine Electro) No definitive M protein is identified on protein electrophores is. No definitive M protein is identified on protein electrophores is. 01/25/2025 7:45 AM EDT [facility] Staff Review (Urine Electro) Reviewed by Mary Cedillo MD 01/25/2025 7:45 AM EDT [facility] Urine URINE SPECIMEN / Unknown Non Blood / Unknown 01/23/2025 11:49 AM EDT 01/23/2025 11:49 AM EDT us Melina Estrada MD LABORATORY Final Result [facility] [place] [address], [place] * URINALYSIS, WITH MICROSCOPIC (01/23/2025 11:49 AM EDT) Color Yellow Yellow 01/23/2025 2:48 PM EDT [facility] Clarity Clear Clear 01/23/2025 2:48 PM EDT [facility] Glucose, Urine Negative Negative 01/23/2025 2:48 PM EDT [facility] Bilirubin, Urine Negative Negative 01/24/20 25 2:48 PM EDT [facility] Ketones, Urine Negative Negative 01/23/2025 2:48 PM EDT [facility] Specific Thornton, Ur 1.023 1.005 - 1.030 01/23/2025 2:48 PM EDT [facility] Hemoglobin/Blood ,Ur Negative Negative 01/23/2025 2:48 PM EDT [facility] pH, Urine 5.5 <8.5 01/23/2025 2:48 PM EDT [facility] Protein, Urine Negative Negative 01/23/2025 2:48 PM EDT [facility] Urobilinogen 0.2 EU/dL 0.2-1.0 EU/dL 01/23/2025 2:48 PM EDT [facility] Nitrites Negative Negative 01/23/2025 2:48 PM EDT [facility] Leuk Esterase Negative Negative 01/23/2025 2:48 PM EDT [facility] WBC, Urine 0-5 /HPF 0-5 /HPF 01/23/2025 2:48 PM EDT [facility] RBC, Urine 0-2 /HPF 0-2 /HPF 01/23/2025 2:48 PM EDT [facility] Bacteria Negative Negative /HPF 01/23/2025 2:48 PM EDT [facility] Squamous Epithelial Cells None Seen /HPF 01/23/2025 2:48 PM EDT [facility] Casts, Hyaline 0 /LPF 0 /LPF 01/23/2025 2:48 PM EDT [facility] Urine MID-STREAM URINE SPECIMEN / Unknown Non Blood / Unknown 01/23/2025 11:49 AM EDT 01/23/2025 11:49 AM EDT Narrative [facility] - 01/23/2025 2:48 PM EDT This test was developed and its performance characteristics determined by [facility]'s Jey Cruz [facility] Pathology and Laboratory Medicine [place] ([facility]). It has not been cleared or approved by the FDA. [facility] is regulated under CLIA as qualified to perform high-complexity testing. This test is used for clinical purposes. It should not be regarded as investigational or for research. us Melina Estrada MD LABORATORY Final Result [facility] [address] [address], * PROTEIN RANDOM URINE (01/23/2025 11:49 AM EDT) Protein, Urine Random 13 0 - 20 mg/dL 01/24/2025 7:12 PM EDT [facility] Urine URINE SPECIMEN / Unknown Non Blood / Unknown 01/23/2025 11:49 AM EDT 01/23/2025 11:49 AM EDT us Melina Estrada MD LABORATORY Final Result [facility] [address] [facility] [place] [id number], [place] * MONOCLONAL PROT UR W/INTERP (01/23/2025 11:49 AM EDT) Result (PA) No M protein is identified. No M protein is identified. 01/25/2025 7:15 AM EDT [facility] Staff Review ([facility]) Reviewed by Mary Cedillo MD 01/25/2025 7:15 AM EDT [facility] Urine URINE SPECIMEN / Unknown Non Blood / Unknown 01/23/2025 11:49 AM EDT 01/23/2025 11:49 AM EDT Melina Estrada MD LABORATORY Final Result Performing Organization Address [facility] Co de Phone Number [facility] [address] [place] [address], [place] * HAVEN BY IFA SCREEN (01/23/2025 11:47 AM EDT) HAVEN Negative Negative 01/24/2025 4:06 PM EDT [facility] Comment: Anti-nuclear antibody test is used [...] us Melina Estrada MD LABORATORY Final Result [facility] [address] [place] [address], [place] * IMMUNOFIXATION SCREEN, SERUM (01/23/2025 11:47 AM EDT) Pathologist [facility] MPA Result No M protein is identified. No M protein is identified. 01/26/2025 11:33 AM EDT [facility] Staff Review ([facility]) Reviewed by La Aburto M.D., Ph.D 01/26/2025 11:33 AM EDT [facility] Blood BLOOD SPECIMEN / Unknown Venipuncture / Unknown 01/23/2025 11:47 AM EDT 01/23/2025 11:48 AM EDT Melina Estrada MD LABORATORY Final Result [facility] [place] [address], [place] * PROTEIN ELECTROPHORESIS SERUM (P) (01/23/2025 11:47 AM EDT) Pathologist [facility] Albumin for SPE 3.69 3.43 - 5.41 g/dL 01/25/2025 7:51 AM EDT [facility] Alpha 1 Globulin 0.24 0.18 - 0.43 g/dL 01/25/2025 7:51 AM EDT [facility] Alpha 2 Globulin 0.57 0.42 - 0.98 g/dL 01/25/2025 7:51 AM EDT [facility] Beta Globulin 0.67 0.61 - 1.17 g/dL 01/25/2025 7:51 AM EDT [facility] Gamma Globulin 0.73 0.53 - 1.51 g/dL 01/25/2025 7:51 AM EDT [facility] Interpretation (Prot Electro) No definitive M protein is identified on protein electrophores is. No definitive M protein is identified on protein electrophores is. 01/25/2025 7:51 AM EDT [facility] M-Protein Location 01/25/2025 7:51 AM EDT [facility] Comment:Not Applicable. M-Protein Concentration 0.00 <=0.00 g/dL 01/25/2025 7:51 AM EDT [facility] SPE Staff Review Reviewed by Mary Cedillo MD 01/25/2025 7:51 AM EDT [facility] Blood BLOOD SPECIMEN / Unknown Venipuncture / Unknown 01/23/2025 11:47 AM EDT 01/23/2025 11:48 AM EDT [facility] - 01/25/2025 7:51 AM EDT Serum electrophoresis test was performed using the [employer] V8 NEXUS capillary electrophoresis method. Results obtained with different assay methods or kits cannot be used interchangeably. us Melina Estrada MD LABORATORY Final Result [facility] [address] [place] [address], * (ABNORMAL) ALKALINE PHOSPHATASE ISOENZYMES (P) (01/23/2025 11:47 AM EDT) Alk Phos Bone % 49.5 10.7 - 68.3 % 01/24/2025 11:12 PM EDT [facility] Bone Fraction 67.8(H) 12.9 - 52.6 U/L 01/24/2025 11:12 PM EDT [facility] Alk Phos Liver % 50.5 26.0 - 86.2 % 01/24/2025 11:12 PM EDT [facility] Liver Fraction 69.2 16.0 - 69.3 U/L 01/24/2025 11:12 PM EDT [facility] Alk Phos Intestine % 0.0 0.0 - 24.2 % 01/24/2025 11:12 PM EDT [facility] Intestine Fraction 0.0 0.0 - 16.3 U/L 01/24/2025 11:12 PM EDT [facility] Blood BLOOD SPECIMEN / Unknown Venipuncture / Unknown 01/23/2025 11:47 AM EDT 01/23/2025 11:48 AM EDT us Melina Estrada MD LABORATORY Final Result [facility] [address], [place] * CHROMATIN ANTIBODY (01/23/2025 11:47 AM EDT) CHROMATIN AB QUAL Negative Negative 01/24/2025 12:14 PM EDT [facility] Chromatin Antibody <0.2 <1.0 AI 01/24/2025 12:14 PM EDT [facility] Comment:Test Methodology: Mu ltiplex flow immunoassay. Blood BLOOD SPECIMEN / Unknown Venipuncture / Unknown 01/23/2025 11:47 AM EDT 01/23/2025 11:48 AM EDT Narrative [facility] - 01/24/2025 12:14 PM EDT Anti-chromatin antibody is used as an aid in diagnosis of systemic lupus erythematosus. Clinical correlation is required. Test Methodology: Multiplex flow immunoassay. us Melina Estrada MD LABORATORY Final Result Performing Organization Address City/[facility]/ZIP Co de Phone Number [facility] [address] [place] [address], [place] * KAPPA/THOMAS,FREE,SER (01/23/2025 11:47 AM EDT) [place] Free, Serum 17.8 3.3 - 19.4 mg/L 01/24/2025 3:15 PM EDT [facility] Comment: Rarely, increased serum free light chains levels may not be detected or accurately quantified due to prozone phenomenon or in high viscosity samples using this immunoturbidimetric assay. Correlation with other laboratory results and clinical findings is recommended. The [place] Free Light Chain was performed using the [employer] immunoturbidimetric method. Result obtained with different assay methods or kits cannot be used interchangeably. Lambda Free, Serum 13.5 5.7 - 26.3 mg/L 01/24/2025 3:15 PM EDT [facility] Comment: Rarely, increased serum free light [...] 0.26 - 1.65 01/24/2025 3:15 PM EDT [facility] Blood BLOOD SPECIMEN / Unknown Venipuncture / Unknown 01/23/2025 11:47 AM EDT 01/23/2025 11:48 AM EDT Melina Estrada MD LABORATORY Final Result Performing Organization Address [facility] Co de Phone Number [facility] [place] [address], * CCP ANTIBODY IGG (01/23/2025 11:47 AM EDT) [facility] CCP Antibody IgG Qualitative Negative Negative 01/24/2025 1:38 PM EDT [facility] CCP Antibody, IgG <15 <20 Units 01/24/2025 1:38 PM EDT [facility] Blood BLOOD SPECIMEN / Unknown Venipuncture / Unknown 01/23/2025 11:47 AM EDT 01/23/2025 11:48 AM EDT Narrative [facility] - 01/24/2025 1:38 PM EDT This test is used as aid in diagnosis of Rheumatoid arthritis (RA). A negative result cannot rule out RA where clinically suspected. Clinical correlation is required. The following results were obtained with an [employer]ANT[employer] Lite CCP IgG AKILAH. Cyclic Citrullinated Peptide IgG values obtained with different manufacturers' assay methods may not be used interchangeably. The magnitude of the reported IgG levels cannot be correlated to an endpoint titer. us Melina Estrada MD LABORATORY Final Result Performing Organization Address [facility]/ZIP Co de Phone Number [facility] [facility] [address] [address], [place] * RIBOSOMAL DOBIE MAN AB BLD (01/23/2025 11:47 AM EDT) Ribosomal DOBIE MAN Qualitative Negative Negative 01/24/2025 12:14 PM EDT [facility] Comment: Anti-Ribosomal RNA (Ribosomal P) antibody is used as an aid in diagnosis of systemic autoimmune diseases especially systemic lupus erythematosus and mixed connective tissue disease. Cross-reactivity with Anti-vera antibody is not uncommon. Clinical correlation is required. Test Methodology: Multiplex flow immunoassay. Ribosomal DOBIE MAN <0.2 <1.0 AI 01/24/2025 12:14 PM EDT [facility] Blood BLOOD SPECIMEN / Unknown Venipuncture / Unknown 01/23/2025 11:47 AM EDT 01/23/2025 11:48 AM EDT Melina Estrada MD LABORATORY Final Result Performing Organization Address [facility] de Phone Number [facility] [address] [address], [place] * DOBIE MAN ANTIBODY BLOOD (01/23/2025 11:47 AM EDT) DOBIE MAN Antibody QUAL Negative Negative 01/24/2025 12:14 PM EDT [facility] DOBIE MAN Antibody <0.2 <1.0 AI 01/24/2025 12:14 PM EDT [facility] Blood BLOOD SPECIMEN / Unknown Venipuncture / Unknown 01/23/2025 11:47 AM EDT 01/23/2025 11:48 AM EDT Narrative [facility] - 01/24/2025 12:14 PM EDT Anti-DOBIE MAN antibody is used as an aid in diagnosis of systemic autoimmune diseases especially systemic lupus erythematosus and mixed connective tissue disease. Cross-reactivity with Anti-vera antibody is not uncommon. Clinical correlation is required. Test Methodology: Multiplex flow immunoassay. Melina Estrada MD LABORATORY Final Result Performing Organization Address [facility]/ZIP Co de Phone Number [facility] [address] [address], [place] * VERA IGG AB (01/23/2025 11:47 AM EDT) SM Antibody Qual Negative Negative 01/25/20 12:14 PM EDT [facility] Comment: Anti-Sm (Vera) antibody is used as an aid in diagnosis of systemic lupus erythematosus and its presence is associated with renal disease. A negative result cannot rule out systemic lupus erythematosus. Clinical correlation is required. Test Methodology: Multiplex flow immunoassay. SM Antibody <0.2 <1.0 AI 01/24/2025 12:14 PM EDT [facility] Blood BLOOD SPECIMEN / Unknown Venipuncture / Unknown 01/23/2025 11:47 AM EDT 01/23/2025 11:48 AM EDT Melina Estrada MD LABORATORY Final Result Performing Organization Address City/[facility]/ZIP Co de Phone Number [facility] [address] [place] [place] [id number], [place] * SEDIMENTATION RATE, WESTERGREN (01/23/2025 11:47 AM EDT) Sed Rate, Westergren 8 0 - 20 mm/hr 01/23/2025 3:11 PM EDT [facility] Blood BLOOD SPECIMEN / Unknown Venipuncture / Unknown 01/23/2025 11:47 AM EDT 01/23/2025 11:48 AM EDT Melina Estrada MD LABORATORY Final Result [facility] [address] [address], [place] * SCLERODERMA IGG AB (01/23/2025 11:47 AM EDT) Scleroderma Ab Qual Negative Negative 01/24/2025 12:14 PM EDT [facility] Scleroderma Ab, IgG <0.2 <1.0 AI 01/24/2025 12:14 PM EDT [facility] Comment:Scl-70/Scleroderma a ntibody test is used [...] MD LABORATORY Final Result Performing Organization Address City/[facility]/ZIP Co de Phone Number [facility] [address] [address], [place] * RHEUMATOID FACTOR (01/23/2025 11:47 AM EDT) Rheumatoid Factor <10 <16 IU/mL 01/23/2025 10:06 PM EDT [facility] Blood BLOOD SPECIMEN / Unknown Venipuncture / Unknown 01/23/2025 11:47 AM EDT 01/23/2025 11:48 AM EDT us Melina Estrada MD LABORATORY Final Result Performing Organization Address [facility] Co de Phone Number [facility] [address] [address], [place] * (ABNORMAL) PROTEIN, TOTAL (01/23/2025 11:47 AM EDT) Protein, Total 5.9(L) 6.3 - 8.0 g/dL 01/23/2025 8:20 PM EDT [facility] Blood BLOOD SPECIMEN / Unknown Venipuncture / Unknown 01/23/2025 11:47 AM EDT 01/23/2025 11:48 AM EDT us Melina Estrada MD LABORATORY Final Result Performing Organization Address City/[facility]/ZIP Co de Phone Number [facility] [address] [address], [place] * NIKKI-1 AB (01/23/2025 11:47 AM EDT) NIKKI 1 ANTIBODY QUAL Negative Negative 2024 12:14 PM EDT [facility] Comment: Anti-NIKKI-1 antibody is used as an aid in diagnosis of polymyositis and dermatomyositis especially with pulmonary involvement. A negative result cannot rule out polymyositis or dermatomyositis. Clinical correlation is required. Test Methodology: Multiplex flow immunoassay. Nikki 1 Antibody <0.2 <1.0 AI 01/24/2025 12:14 PM EDT [facility] Blood BLOOD SPECIMEN / Unknown Venipuncture / Unknown 01/23/2025 11:47 AM EDT 01/23/2025 11:48 AM EDT Melina Estrada MD LABORATORY Final Result Performing Organization Address City/[facility]/ZIP Co de Phone Number [facility] [address] [place] [address], [place] * CREATINE KINASE/CK (01/23/2025 11:47 AM EDT) CK 76 42 - 196 U/L 01/23/2025 8:00 PM EDT [facility] Blood BLOOD SPECIMEN / Unknown Venipuncture / Unknown 01/23/2025 11:47 AM EDT 01/23/2025 11:48 AM EDT Melina Estrada MD LABORATORY Final Result [facility] [address] [place] [place] [id number], [place] * C4 COMPLEMENT (01/23/2025 11:47 AM EDT) C4 Complement 21 13 - 46 mg/dL 01/23/2025 10:17 PM EDT [facility] Blood BLOOD SPECIMEN / Unknown Venipuncture / Unknown 01/23/2025 11:47 AM EDT 01/23/2025 11:48 AM EDT Melina Estrada MD LABORATORY Final Result Performing Organization Address City/[facility]/ZIP Co de Phone Number [facility] [address] [phone], [place] * C3 COMPLEMENT (01/23/2025 11:47 AM EDT) C3 Complement 113 86 - 166 mg/dL 01/23/2025 10:17 PM EDT [facility] Blood BLOOD SPECIMEN / Unknown Venipuncture / Unknown 01/23/2025 11:47 AM EDT 01/23/2025 11:48 AM EDT Melina Estrada MD LABORATORY Final Result Performing Organization Address [facility] Co de Phone Number [facility] [address] [phone], [place] * C-REACTIVE PROTEIN (01/23/2025 11:47 AM EDT) CRP <0.3 <0.9 mg/dL 01/23/2025 10:06 PM EDT [facility] Blood BLOOD SPECIMEN / Unknown Venipuncture / Unknown 01/23/2025 11:47 AM EDT 01/23/2025 11:48 AM EDT Melina Estrada MD LABORATORY Final Result Performing Organization Address City/[facility]/ZIP Co de Phone Number [facility] [address] [place] [phone], [place] * ANTI-CENTROMERE AB (01/23/2025 11:47 AM EDT) CENTROMERE AB QUAL Negative Negative 01/24/2025 12:14 PM EDT [facility] Centromere Ab <0.2 <1.0 AI 01/24/2025 12:14 PM EDT [facility] Comment: Anti-centromere antibody is used as in aid in diagnosis of systemic sclerosis. Clinical correlation is required. Test Methodology: Multiplex flow immunoassay. Blood BLOOD SPECIMEN / Unknown Venipuncture / Unknown 01/23/2025 11:47 AM EDT 01/23/2025 11:48 AM EDT Melina Estrada MD LABORATORY Final Result Performing Organization Address [facility] de Phone Number [facility] [place] [phone], [place] * ANTI SSB BLD (01/23/2025 11:47 AM EDT) SSB Antibody <0.2 <1.0 AI 01/24/2025 12:14 PM EDT [facility] Comment: Anti-SSB (anti-La) antibody is used as an aid in diagnosis of a variety of systemic autoimmune diseases, especially for Sjogren's syndrome and systemic lupus erythematosus. Clinical correlation is required. Test Methodology: Multiplex flow immunoassay. SSB Antibody Qual Negative Negative 01/24/2025 12:14 PM EDT [facility] Blood BLOOD SPECIMEN / Unknown Venipuncture / Unknown 01/23/2025 11:47 AM EDT 01/23/2025 11:48 AM EDT us Melina Estrada MD LABORATORY Final Result Performing Organization Address [facility] Co de Phone Number [facility] [address] [place], [place] [id number], [place] * ANTI SSA BLD (01/23/2025 11:47 AM EDT) SSA Antibody Qual Negative Negative 01/24/2025 12:14 PM EDT [facility] SSA Antibody IgG <0.2 <1.0 AI 01/24/2025 12:14 PM EDT [facility] Comment:Test Methodology: Mu ltiplex flow immunoassay. Blood BLOOD SPECIMEN / Unknown Venipuncture / Unknown 01/23/2025 11:47 AM EDT 01/23/2025 11:48 AM EDT Narrative [facility] - 01/24/2025 12:14 PM EDT Anti-SSA (anti-Ro) antibody is used as an aid in diagnosis of a variety of systemic autoimmune diseases, Sjogren's syndrome among others. Clinical correlation is required. Test Methodology: Multiplex flow immunoassay. us Melina Estrada MD LABORATORY Final Result Performing Organization Address [facility] Co de Phone Number [facility] [address] [place] [place] [phone], [place] * (ABNORMAL) ALKALINE PHOSPHATASE (01/23/2025 11:47 AM EDT) Alkaline Phosphatase 137(H) 34 - 123 U/L 01/23/2025 8:20 PM EDT [facility] Blood BLOOD SPECIMEN / Unknown Venipuncture / Unknown 01/23/2025 11:47 AM EDT 01/23/2025 11:48 AM EDT Melina Estrada MD LABORATORY Final Result Performing Organization Address [facility] de Phone Number [facility] [address] [place] [place] [phone], [place] * ALDOLASE BLD (01/23/2025 11:47 AM EDT) Aldolase 3.1 1.5 - 8.1 U/L 01/23/2025 6:08 PM EDT [facility] Comment:This test was rosina stoll, and its performance characteristics determined by the [facility] Department of Pathology and Laboratory Medicine. It has not been cleared or approved by the FDA. The [facility] Department of Pathology and Laboratory Medicine is regulated under CLIA as qualified to perform high- complexity testing. This test is used for clinical purposes. It should not be regarded as investigational or for research. Blood BLOOD SPECIMEN / Unknown Venipuncture / Unknown 01/23/2025 11:47 AM EDT 01/23/2025 11:48 AM EDT us Melina Estrada MD LABORATORY Final Result Performing Organization Address [facility] Co de Phone Number [facility] [address] [facility] [address] [place] [address], [place] * HIV 1/2 COMBO WITH REFLEX TO DIFFERENTIATION (02/03/2024 9:27 AM EDT) HIV 12 Combo (Ag/Ab) Nonreactive Nonreactive 02/03/2024 5:10 PM EDT [facility] HIV-1/2 AB (Confirmatory) 02/03/2024 5:10 PM EDT [facility] Comment:Test not indicated. HIV Interpretation 02/03/2024 5:10 PM EDT [facility] Comment: No evidence of HIV-1 or HIV-2 infection. Should recent infection be suspected, repeat testing may be considered 2-3 weeks after this draw. [place] Rev. Code 3701.243(E): This information has been [...] 9:27 AM EDT 02/03/2024 9:27 AM EDT Yg Solitario MD LABORATORY Final Result [facility] [address] [facility] [address] [place] [address], [place] * COLONOSCOPY DIAGNOSTIC (04/23/2023 7:15 AM EDT) Anatomical Region Laterality Modality Other 04/23/2023 7:15 AM EDT Narrative 04/23/2023 8:01 AM EDT [facility] Gastrointestinal Endoscopy Patient Name: Melina Taveras Procedure Date: 04/23/2023 7:15 AM Date of : 1975 Admit Type: Outpatient Age: 47 Room: [place] [address] Gender: Female Note Status: Finalized Attending MD: [...] by the physician, the nurse and the hall monitor in the pre-procedure area in the procedure [...] previously scheduled. Procedure Code(s): --- Professional --- 55072, Colonoscopy, flexible; with biopsy, single or multiple Diagnosis Code(s): --- Professional --- K52.9, Noninfective gastroenteritis and colitis, unspecified K57.30, Diverticulosis of large intestine without perforation or abscess without bleeding CPT copyright 2020 [employer]. All rights reserved. The codes documented in this report are preliminary and upon electrician supervisor review may be revised to meet current compliance requirements. Attending Participation: I personally performed the entire procedure. Scope In: 7:35:44 AM Scope Out: 7:55:36 AM MD Rene Weinstein MD 04/23/2023 7:58:41 AM This report has been signed electronically by Rene Peter MD Number of Addenda: 0 Note Initiated On: 04/23/2023 7:15 AM Estimated Blood Loss: Estimated blood loss was minimal. 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 Operator Expl anation Advance Directive(s) 08/01/2024 5:48 PM Advance Directive(s) 07/30/2022 4:02 PM Advance Directive(s) 09/27/2019 7:51 AM * Full Code (Latest Code Status on File) Date Activated Date Inactivated Comments 03/31/2025 4:31 AM 04/04/2025 6:23 PM Question Answer Comments Full Code Order Discussed With: Patient * Full Code Date Activated Date Inactivated Comments 07/30/2024 12:10 [...] Code Order Discussed With: Patient Care Teams Agricultural Economics Professor Relationship Specialty Start Date End Date Shlomo Hu II, MD [address] [facility] [address] [place], [place] [phone] PCP - General Internal Medicine 10/06/23 [address] [address] [place] [address] Referring 04/30/[address] [place] [id number] Registered Dietitian Nutrition 06/24/[address] [place] [phone] Registered Dietitian Nutrition 08/27/23 Yuan Miller MD, PhD [address] [place] [address] Surgeon General Surgery 02/03/24
--- OUTSIDE RECORDS SUMMARY | 2025-04-09 11:54 | XMS_ITS | Encounter Summary ---
Author Organization [facility] Address [address] [facility] [place] [address] Care Team Providers Care Bartender Server Name Role Phone Shlomo Hu MD Primary Care Provider Jacob Sharp LANGUAGE ARTS TEACHER Unavailable [phone] Thursday, Toya BUS STARTER Unavailable [phone] Shlomo Hu MD Unavailable [phone] Shante Kumar SOLUTION PROFESSIONAL-HOME APPRAISER Unavailable Claribel Scott RN Unavailable [phone] [address] BUS STARTER Unavailable Esthela Tesfaye TABULATING SUPERVISOR Unavailable Reason for Visit * Reason Comments Med Refill Encounter Details Date Type Department Care Team (Late st Contact Info) Description 03/20/2024 Refill [facility] [address] [facility] [address] [place] [address] Shante Kumar, SOLUTION PROFESSIONAL-HOME APPRAISER [address] [facility] [address] [place] [address] Insomnia, unspecified type Social History Tobacco Use [...] How often do you attend chur or holiness services? 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 120 [place] [address] Sonny Rodriguez, DPM [address] [address] 05/04/2025 2:50 PM EDT Office Visit [facility] [address] [facility] [address] [place] [address] Sonny Rodriguez, DPM [address] [address] documented as of this encounter Visit Diagnoses Diagnosis Insomnia, unspecified type documented in this encounter Additional Health Concerns Assessment Noted Time PHQ-9 Depression Total Score: 9 08/26/20 23 1:30 PM EST documented as of this encounter Care Teams Bartender Server Relationship Specialty Start Date End Date Shlomo Hu MD [address] [facility] 110 [place] [address] PCP - General Internal Medicine 02/15/23 [place] [address] [place] [address] PCP - [place] [employer] 08/14/23 Shlomo Hu MD [address] [facility] [address] [place] [address] PCP - [place] [employer] 05/15/2407/14 Shante Kumar APRN-HOME APPRAISER [address] [facility] [address] [place] [address] PCP - [place] [employer] 07/15/24 5 ThursdayToya LPN [address] [place] [address] Licensed Practical Nurse Family Medicine 01/19/24 10/21/24 Claribel Scott, RN [address] [place] [address] Licensed Practical Nurse Family Medicine 10/21/24 12/06/24 Jess Marsh LPN [address] [place] [address] [place] [address] 12/06/24 Esthela Tesfaye, TABULATING SUPERVISOR [address] [place] [address] Document Scanner Family Medicine 02/03/25 documented as of this encounter
--- OUTSIDE RECORDS SUMMARY | 2025-04-09 11:54 | XMS_ITS | Encounter Summary ---
Author Organization [facility] Address [address] [place] [address] Care Team Providers Care Drive In Teller Name Role Phone Sean Ruiz Mona GALVEZ Primary Care Provider [phone] Jacob Sharp Unavailable Rasheeda Newton RD Unavailable [phone] Unavailable [phone] Fritz HENDERSON MD, Shlomo B Primary Care Provider [phone] Yuan Miller MD, PhD Unavailable [phone] Source Comments In the event this information is protected by the Federal Confidentiality of Alcohol and Drug AbusePatient Records regulations: The Federal rules restrict any use of the information to criminally investigate or prosecute any alcohol or drug abuse patient.[facility] Encounter Details Date Type Department Care Team (Late st Contact Info) Description 07/30/2023 Get Medical Advice Gastroenterology [address] [place] [phone] Johanna Martinez MD [facility] [address] [address] Blood work Social History Tobacco [...] is lower risk 4 03/05/2023 Data from: https://www.neighborhoodatlas.medicine.[facility].edu/. Last address used for calculation [address] [place] [address] 03/05/2023 Comments No Sex and Gender Information [...] 04/10/2025 10:00 AM EDT Hospital Encounter Admitting [address] [place] [id number] Yuan Miller MD, PhD [address] [place] [address] Nausea and vomiting, unspecified vomiting type [R11.2], H/O bariatric surgery [Z98.84], Jejunostomy tube fell out [T85.528A] 04/10/2025 10:00 AM EDT - 04/10/2025 12:00 PM EDT Surgery Admitting [address] [place] [address] Yuan Miller MD, PhD [address] [place] [address] LAPAROSCOPIC JEJUNOSTOMY 04/19/2025 11:00 AM EDT [facility] [address] [place] [phone] Joann Loera APRN.INTERACTIVE MEDIA DIRECTOR [address] [place] [phone] Cognitive movement issues 04/21/2025 8:30 AM EDT [facility] Nutrition Therapy [address] [place] [phone] Tiffany Banks, RD [address] [place] [address] f/u TF forula tolerance and hydration 05/18/2025 9:00 AM T [facility] General Surgery [address] [place] [phone] Michael Mora PA-C [address] [place] [phone] f/u with michael mora in 2 wks 05/29/2025 9:00 AM EDT [facility] Gastroenterology [address] [place] [phone] Johanna Martinez MD [facility] [address] [place] [phone] 3 month follow up 06/28/2025 10:00 AM T [facility] Neurology Pain [address] [place] [address] [place] [address] [place] [address] Follow up for pain Scheduled Procedures Name [...] documented as of this encounter Care Teams Drive In Teller Relationship Specialty [place] [address] [place] [address] PCP - General Family Medicine 07/09/12 10/05/23 Shlomo Hu II, MD [address] [facility] 110 [place] [address] PCP - General Internal Medicine 10/06/23 [address] [address] [place] [address] Referring 04/30/[address] [place] [address] Registered Dietitian Nutrition 06/24/[address] [place] [address] Registered Dietitian Nutrition 08/27/23 Yuan Miller MD, PhD [address] [place], [place] [phone] Surgeon General Surgery 02/03/24 documented as of this encounter
--- OUTSIDE RECORDS SUMMARY | 2025-04-09 11:54 | XMS_ITS | Encounter Summary ---
Author Organization [facility] Address [facility] [place] [address] Care Team Providers Care Quarry Supervisor Dimension Stone Name Role Phone Jacob Sharp Unavailable Rasheeda Newton RD Unavailable [phone] Unavailable [phone] Fritz HENDERSON MD, Shlomo B Primary Care Provider [phone] Yuan Miller MD, PhD Unavailable [phone] Source Comments In the event this information is protected by the Federal Confidentiality of Alcohol and Drug AbusePatient Records regulations: The Federal rules restrict any use of the information to criminally investigate or prosecute any alcohol or drug abuse patient.[facility] Encounter Details Date Type Department Care Team (Late st Contact Info) Description 08/16/2024 Patient Msg Neurology Pain [address] [place], [place] [id number] [place] [address] [place] [address] [employer] Social History Tobacco Use Types Packs/Day Years Used Date Smoking Tobacco: Never Smokeless Tobacco: Never Alcohol Use Standard Drinks/Week Comments Not Currently 0 (1 standard drink = 0.6 oz pur e alcohol) [facility] Utilities Answer Date Recorded In the [...] any time in the past 12 m [facility], were you homeless or living in a snf (including now)? No 08/01/2024 Area Deprivation Index Answer Date Reagan rded National Score (1-100), lower number is lower ri sk 63 03/05/2023 State Score (1-10), lower number is lower risk 4 03/05/2023 Data from: https://www.neighborhoodatlas.medicine.[facility]/. Last address used for calculation [address] 03/05/2023 Comments [...] file Travel History Travel Start Travel End [place] 03/18/2025 03/26/2025 documented as of this encounter [...] Author No 08/02/2024 3:06 PM Donna Olea PIETRO documented in this encounter Plan of Treatment Upcoming Encounters Date Type Department Care Team (Latest Contact Info) Description 04/10/2025 10:00 AM EDT Hospital Encounter Admitting 9500 [place] [address] Yuan Miller MD, PhD [address] [id number] Nausea and vomiting, unspecified vomiting type [R11.2], H/O bariatric surgery [Z98.84], Jejunostomy tube fell out [T85.528A] 04/10/2025 10:00 AM EDT - 04/10/2025 12:00 PM EDT Surgery Admitting [address] [id number] Yuan Miller MD, PhD [address] [id number] LAPAROSCOPIC JEJUNOSTOMY 04/19/2025 11:00 AM EDT [facility] Neurological Orthodoxy [address] [place] [address] Joann Loera APRN.INSURANCE COORDINATOR [address] [id number] Cognitive movement issues 04/21/2025 8:30 AM EDT [facility] Nutrition Therapy 2048 [place] [address] Tiffany Banks, RD [address] [id number] f/u TF forula tolerance and hydration 05/18/2025 9:00 AM EDT [facility] General Surgery 9300 [place] [address] Michael Mora PA-C [address] [id number] f/u with michael mora in 2 wks 05/29/2025 9:00 AM EDT [facility] Gastroenterology [address] [address] Johanna Martinez MD [facility] [address] [place], [place] [id number] 3 month follow up 06/28/2025 10:00 AM EDT [facility] Neurology Pain [address] [place] 8590006 [place] [address] [place] [address] [id number] Follow up for pain Scheduled Procedures Name Priority Associated Diagnoses Date/Ti me LAPAROSCOPIC JEJUNOSTOMY Nausea and vomiting, unspecified vomiting type H/O bariatric surgery Jejunostomy tube fell out 04/10/2025 10:00 AM EDT documented as of this encounter Visit Diagnoses Not on filedocumented in this encounter Care Teams Quarry Supervisor Dimension Stone Relationship Specialty Start Date End Date Shlomo Hu II, MD 112 [facility] 110 [place] [address] PCP - General Internal Medicine 10/06/23 Jacob Sharp [address] [id number] Referring 04/30/[address] [phone] Registered Dietitian Nutrition 06/24/[address] [place], [place] [phone] Registered Dietitian Nutrition 08/27/23 Yuan Miller MD, PhD [address] [place], [place] [phone] Surgeon General Surgery 02/03/24 documented as of this encounter
--- OUTSIDE RECORDS SUMMARY | 2025-04-09 11:54 | XMS_ITS | Encounter Summary ---
Author Organization [facility] Address [address] [facility] [place] [address] Care Team Providers Care Public Relations Account Supervisor Name Role Phone Shlomo Hu MD Primary Care Provider Jacob Sharp MEDICAL CLAIMS EXAMINER Unavailable [phone] Thursday, Toya TRESTLE MAINTERNANCE LABORER Unavailable [phone] Shlomo Hu MD Unavailable [phone] Shante Kumar SUPERVISOR PUBLICATIONS-GREASE AND TALLOW PUMPER Unavailable Claribel Scott RN Unavailable Jess Marsh TRESTLE MAINTERNANCE LABORER Unavailable Esthela Tesfaye BIG 6 DEALER Unavailable Reason for Visit * Reason Comments Med Refill Encounter Details Date Type Department Care Team (Late st Contact Info) Description 04/11/2024 [facility] [address] [facility] 110 [place] [address] Shlomo Hu MD [address] [facility] 110 [place], [place] [phone] Social History Tobacco Use Types Packs/Day Years [...] do you attend chur or presybeterian services? 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 Not on [...] [address] [place] [address] Sonny Rodriguez DPM [address] [address] 05/04/2025 2:50 PM EDT Office Visit [facility] [address] [place] [address] Sonny Rodriguez DPM [address] [address] documented as of this encounter Visit Diagnoses Not on filedocumented in this encounter Additional Health Concerns Assessment Noted Time PHQ-9 Depression Total Score: 9 08/26/20 23 1:30 PM EST documented as of this encounter Care Teams Public Relations Account Supervisor Relationship Specialty Start Date End Date Shlomo Hu MD [address] [facility] 110 [place] [address] PCP - General Internal Medicine 02/15/23 [place] [address] [place] [address] PCP - [place] [employer] 08/14/23 Shlomo Hu MD [address] [place] [address] PCP - [place] [employer] 05/15/2407/14 Shante Kumar, SUPERVISOR PUBLICATIONS-GREASE AND TALLOW PUMPER [address] [place] [address] PCP - [place] [employer] 07/15/24 ThursdayToya LPN [address] [place] [address] Licensed Practical Nurse Family Medicine 01/19/24 10/21/24 Claribel Scott, RN [address] [place] [address] Licensed Practical Nurse Family Medicine 10/21/24 12/06/24 Jess Marsh LPN [address] [facility] 110 [place] [address] 12/06/24 Esthela Tesfaye, KIRA [address] [place] [address] Cloth Bleaching Range Tender Family Medicine 02/03/25 documented as of this encounter
--- OUTSIDE RECORDS SUMMARY | 2025-04-09 11:54 | XMS_ITS | Encounter Summary ---
Author Organization [facility] Address [address] [place] [address] Care Team Providers Care Service Station Helper Name Role Phone Ruiz, Sean Mona GALVEZ Primary Care Provider [phone] Jacob Sharp Unavailable Rasheeda Newton RD Unavailable [phone] Unavailable Fritz HENDERSON MD, Shlomo Momin Primary Care Provider [phone] Yuan Miller MD, PhD Unavailable [phone] Source Comments In the event this information is protected by the Federal Confidentiality of Alcohol and Drug AbusePatient Records regulations: The Federal rules restrict any use of the information to criminally investigate or prosecute any alcohol or drug abuse patient.[facility] Encounter Details Date Type Department Care Team (Late st Contact Info) Description 07/30/2023 Get [facility] Gastroenterology [address] [phone] Provider, Ccf Appointment Social History Tobacco Use [...] risk 4 03/05/2023 Data from: https://www.neighborhoodatlas.medicine.[facility].edu/. Last address used for calculation [address] [...] 04/10/2025 10:00 AM EDT Hospital Encounter Admitting [address] [place] [address] Yuan Miller MD, PhD [address] [place] [address] Nausea and vomiting, unspecified vomiting type [R11.2], H/O bariatric surgery [Z98.84], Jejunostomy tube fell out [T85.528A] 04/10/2025 10:00 AM EDT - 04/10/2025 12:00 PM EDT Surgery Admitting [address] [place] [address] Yuan Miller MD, PhD [address] [phone] LAPAROSCOPIC JEJUNOSTOMY 04/19/2025 11:00 AM EDT [facility] Neurological Druze [address] [phone] Joann Loera APRN.VEST PRESSER [address] [phone] Cognitive movement issues 04/21/2025 8:30 AM EDT [facility] Nutrition Therapy [address] [phone] Tiffany Banks, RD 9500 [place] [address] f/u TF forula tolerance and hydration 05/18/2025 9:00 AM EDT [facility] General Surgery 9300 [place] [address] Michael Mora PA-C [address]00 [place] [address] f/u with michael mora in 2 wks 05/29/2025 9:00 AM EDT [facility] Gastroenterology 2048 [place] [address] Johanna Martinez MD [facility] [address] [place], [place] [phone] 3 month follow up 06/28/2025 10:00 AM EDT [facility] Neurology Pain [address] [phone] [place] [address] [address] [id number] Follow up for pain Scheduled Procedures Name [...] as of this encounter Care Teams Service Station Helper Relationship Specialty [place] [address] [address] [address] [phone] PCP - General Family Medicine 07/09/12 10/05/23 Shlomo Hu II, MD [address] [facility] 110 [place] [address] PCP - General Internal Medicine 10/06/23 Jacob Sharp [address] [place] [address] Referring 04/30/[address] [place] [address] Registered Dietitian Nutrition 06/24/[address] [place], [place] 06[address] Registered Dietitian Nutrition 08/27/23 Yuan Miller MD, PhD [address] [phone] Surgeon General Surgery 02/03/24 documented as of this encounter
--- OUTSIDE RECORDS SUMMARY | 2025-04-09 11:54 | XMS_ITS | Encounter Summary ---
Author Organization [facility] Address [address] [facility] [place] [address] Care Team Providers Care Automation Specialist Name Role Phone Shlomo Hu MD Primary Care Provider [phone] Jacob Sharp ELECTRIC POWER LINE EXAMINER Unavailable [phone] Thursday, Toya VISION MIXER Unavailable [phone] Shlomo Hu MD Unavailable [phone] Shante Kumar SPOT CLEANER-CROP AND SOIL TECHNICIAN Unavailable Claribel Scott RN Unavailable [phone] Jess Marsh VISION MIXER Unavailable Esthela Tesfaye ROLLER SHOP SUPERVISOR Unavailable Encounter Details Date Type Department Care Team (Late st Contact Info) Description 03/15/2024 Abstract [facility] [place] [facility] 112 [facility] 110 [place] [address] Shlomo Hu MD 112 [facility] 110 [place], [place] 8457[address] Social History Tobacco Use Types Packs/Day Years [...] 03/01/2023 How often do you attend [facility] or amish services? 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 Not on file Not on file documented as of this encounter Plan of Treatment Upcoming Encounters Date Type Department Care Team (Late st Contact Info) Description 04/20/2025 3:00 PM EDT Office Visit [facility] [address] [place] [address] Sonny Rodriguez, DPM [address] [address] 05/04/2025 2:50 PM EDT Office Visit [facility] [address] [place] [address] Sonny Rodriguez, DPM [address] [address] documented as of this encounter Visit Diagnoses Not on filedocumented in this encounter Additional Health Concerns Assessment Noted Time PHQ-9 Depression Total Score: 9 08/26/20 23 1:30 PM EST documented as of this encounter Care Teams Automation Specialist Relationship Specialty Start Date End Date Shlomo Hu MD [address] [facility] 110 [place] [address] PCP - General Internal Medicine 02/15/23 [place] [address] [place] [address] PCP - [place] [employer] 08/14/23 Shlomo Hu MD [address] [facility] 110 [place] [address] PCP - [place] [employer] 05/15/2407/14 Shante Kumar APRN-CROP AND SOIL TECHNICIAN [address] [place] [address] PCP - [place] [employer] 11Thursday, DUKE Pittman [address] [place] [address] Licensed Practical Nurse Family Medicine 01/19/24 10/21/24 Claribel Scott, RN [address] [place] [address] Licensed Practical Nurse Family Medicine 10/21/24 12/06/24 Jess Marsh LPN [address] [place] [address] 12/06/24 Esthela Tesfaye, KIRA 1479 [place] [address] It Help Desk Manager Family Medicine 02/03/25 documented as of this encounter
--- OUTSIDE RECORDS SUMMARY | 2025-04-09 11:54 | XMS_ITS | Encounter Summary ---
Author Organization [facility] Address [address] [place] [address] Care Team Providers Care Investment Analyst Name Role Phone Jacob Sharp Unavailable Rasheeda Newton RD Unavailable [phone] Unavailable [phone] Fritz HENDERSON MD, Shlomo Momin Primary Care Provider [phone] Yuan Miller MD, PhD Unavailable [phone] Source Comments In the event this information is protected by the Federal Confidentiality of Alcohol and Drug AbusePatient Records regulations: The Federal rules restrict any use of the information to criminally investigate or prosecute any alcohol or drug abuse patient.[facility] Encounter Details Date Type Department Care Team (Late st Contact Info) Description 08/01/2024 Patient Msg Neurology [address] [place], [place] [phone] Provider, Ccf Ketamine cancelled for next week Social History Tobacco Use Types Packs/Day Years Used Date Smoking Tobacco: Never Smokeless Tobacco: Never Alcohol Use Standard Drinks/Week Comments Not Currently 0 (1 standard drink = 0.6 oz pur e alcohol) [facility] Utilities Answer Date Recorded In the past 12 months has th e electric, gas, oil, or water eigital threatened to shut off services in your [...] any time in the past [address] [facility], were you homeless or living in a group home (including now)? No 08/01/2024 Area Deprivation Index Answer Date Reagan rded National Score (1-100), lower number is lower ri sk 63 03/05/2023 State Score (1-10), lower number is lower risk 4 03/05/2023 Data from: https://www.neighborhoodatlas.medicine.[facility]/. Last address used for calculation [address] [...] 10:00 AM EDT Hospital Encounter Admitting [address] [id number] Yuan Miller MD, PhD [address] [phone] Nausea and vomiting, unspecified vomiting type [R11.2], H/O bariatric surgery [Z98.84], Jejunostomy tube fell out [T85.528A] 04/10/2025 10:00 AM EDT - 04/10/2025 12:00 PM EDT Surgery Admitting [address] [id number] Yuan Miller MD, PhD [address] [id number] LAPAROSCOPIC JEJUNOSTOMY 04/19/2025 11:00 AM EDT [facility] Neurological Zoroastrian [address] [phone] Joann Loera APRN.CORRECTIONAL GUARD [address] [phone] Cognitive movement issues 04/21/2025 8:30 AM EDT [facility] Nutrition Therapy [address] [address] Tiffany Banks, RD [address] [place] [place] [phone] f/u TF forula tolerance and hydration 05/18/2025 9:00 AM EDT [facility] General Surgery 9300 [place] [address] Michael Mora PA-C [address] 2668295 f/u with michael mora in 2 wks 05/29/2025 9:00 AM EDT [facility] Gastroenterology [address] [place], [place] [address] Johanna Martinez MD [facility] [address] [place], [place] [address] 3 month follow up 06/28/2025 10:00 AM EDT [facility] Neurology Pain [address] [place] [address] 2668206 [place] [address] [address] [id number] Follow up for pain Scheduled Procedures Name Priority Associated Diagnoses Date/Ti me LAPAROSCOPIC JEJUNOSTOMY Nausea and vomiting, unspecified vomiting type H/O bariatric surgery Jejunostomy tube fell out 04/10/2025 10:00 AM EDT documented as of this encounter Visit Diagnoses Not on filedocumented in this encounter Care Teams Investment Analyst Relationship Specialty Start Date End Date Shlomo Hu II, MD [address] [facility] 110 [place] [address] PCP - General Internal Medicine 10/06/23 Jacob Sharp [address] [address] [phone] Referring 04/30/[address] [place] [phone] Registered Dietitian Nutrition 06/24/[address] [phone] Registered Dietitian Nutrition 08/27/23 Yuan Miller MD, PhD [address] [phone] Surgeon General Surgery 02/03/24 documented as of this encounter
--- OUTSIDE RECORDS SUMMARY | 2025-04-09 11:54 | XMS_ITS | Encounter Summary ---
Author Organization [facility] Address [address] [place] [address] Care Team Providers Care Cvir Tech Name Role Phone Shlomo Hu MD Primary Care Provider [phone] Jacob Sharp FAREBOX REPAIRER Unavailable Thursday, Toya BOILER TESTING TECHNICIAN Unavailable [phone] Shlomo Hu MD Unavailable [phone] Shante Kumar CLINIQUE COUNTER MANAGER-MARSHMALLOW MAKER Unavailable Claribel Scott RN Unavailable [phone] Jess Marsh BOILER TESTING TECHNICIAN Unavailable Esthela Tesfaye VAT OVERHAULER Unavailable [phone] Encounter Details Date Type Department Care [...] do you attend chur or nondenominational services? 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 Not on file Not on file documented as of this encounter Plan of Treatment Upcoming Encounters Date Type Department Care Team (Late st Contact Info) Description 04/20/2025 3:00 PM EDT Office Visit [facility] [address] [place] [address] Sonny Rodriguez, DPM [address] [address] 05/04/2025 2:50 PM EDT Office Visit [facility] [address] [facility] 120 [place] [address] Sonny Rodriguez DPM [address] [address] documented as of this encounter Procedures Procedure Name Priority Date/Time Associated Diagnosis Comments XR ABDOMEN 1V SUPINE 04/07/2024 3:07 PM EDT documented in this encounter Results * XR ABDOMEN 1V SUPINE (04/07/2024 3:07 PM EDT) Anatomical Region Laterality Modality Other 04/07/2024 3:0 7 PM EDT Narrative 04/08/2024 11:51 AM EDT [...] Stool is noted in the right colon. Automatic Profile Shaper Operator: PSCB Transcribe Date/Time: Apr 08 2024 11:37A Dictated by : TREY STYLES MD This examination was interpreted and the report reviewed and electronically signed by: TREY STYLES MD on Apr 08 2024 11:49AM EST [id number]^SI^ACN Procedure Note Radiology, Radiologist, - 04/08/2024 * [...] Stool is noted in the right colon. Automatic Profile Shaper Operator: ZACHERY Transcribe Date/Time: Apr 08 2024 11:37A Dictated by : TREY STYLES MD This examination was interpreted and the report reviewed and electronically signed by: TREY STYLES MD on Apr 08 2024 11:49AM EST [id number]^SI^ACN us Generic External Data Provider [facility] Final Result documented in this encounter Visit Diagnoses Not on filedocumented in this encounter Additional Health Concerns Assessment Noted Time PHQ-9 Depression Total Score: 9 08/26/20 23 1:30 PM EST documented as of this encounter Care Teams Cvir Tech Relationship Specialty Start Date End Date Shlomo Hu MD [address] [address] PCP - General Internal Medicine 02/15/23 [place] [address] [place] [address] PCP - [place] [employer] 08/14/23 Shlomo Hu MD [address] [address] PCP - [place] [employer] 05/15/2407/14 Shante Kumar, CLINIQUE COUNTER MANAGER-MARSHMALLOW MAKER [address] [place] [address] PCP - [place] [employer] 07/15/24 ThursdayToya LPN [address] [place] [address] Licensed Practical Nurse Family Medicine 01/19/24 10/21/24 Claribel Scott, RN [address] [place] [address] Licensed Practical Nurse Family Medicine 10/21/24 12/06/24 Jess Marsh LPN [address] [place] [address] 12/06/24 Esthela Tesfaye, KIRA 1479 [place] [address] Ink Printer Family Medicine 02/03/25 documented as of this encounter
--- OUTSIDE RECORDS SUMMARY | 2025-04-09 11:54 | XMS_ITS | Encounter Summary ---
Author Organization [facility] Address [facility] [place] [address] Care Team Providers Care Facility Maintenance Manager Name Role Phone Jacob Sharp Unavailable Rasheeda Newton RD Unavailable [phone] Unavailable [phone] Fritz HENDERSON MD, Shlomo Momin Primary Care Provider [phone] Yuan Miller MD, PhD Unavailable [phone] Source Comments In the event this information is protected by the Federal Confidentiality of Alcohol and Drug AbusePatient Records regulations: The Federal rules restrict any use of the information to criminally investigate or prosecute any alcohol or drug abuse patient.[facility] Reason for Visit * Reason Comments Medication Problem Encounter Details Date Type Department Care Team (Late st Contact Info) Description 08/29/2024 Telephone General Surgery [address] [id number] Yuan Miller MD, PhD 1464 [place] [address] Medication Problem Social History Tobacco Use Types Packs/Day Years Used Date Smoking Tobacco: Never Smokeless Tobacco: Never Alcohol Use Standard Drinks/Week Comments Not Currently 0 (1 standard drink = 0.6 oz pur e alcohol) [facility] Utilities Answer Date Recorded In [...] in the past 12 m [facility], were you homeless or living in a fpc (including now)? No 08/01/2024 Area Deprivation Index Answer Date Reagan rded National Score (1-100), lower number is lower ri sk 63 03/05/2023 State Score (1-10), lower number is lower risk 4 03/05/2023 Data from: https://www.neighborhoodatlas.[facility]/. Last address used for calculation [address] Patient'S [...] Author No 08/02/2024 3:06 PM EST Donna Hernandez, PIETRO documented in this encounter Miscellaneous Notes * Telephone Encounter - Zach Rodriguez - 08/29/2024 3:19 PM EST Pt called [...] 04/10/2025 10:00 AM EDT Hospital Encounter Admitting [facility] [place] [id number] Yuan Miller MD, PhD [address] [id number] Nausea and vomiting, unspecified vomiting type [R11.2], H/O bariatric surgery [Z98.84], Jejunostomy tube fell out [T85.528A] 04/10/2025 10:00 AM EDT - 04/10/2025 12:00 PM EDT Surgery Admitting [facility] [place] [phone] Yuan Miller MD, PhD [address] [place] [address] LAPAROSCOPIC JEJUNOSTOMY 04/19/2025 11:00 AM EDT [facility] Neurological Adventism [address] [phone] Joann Loera, STOPPERER ASSEMBLER.FORMING PROCESS WORKER 9500 [place], [place] 5682195 Cognitive movement issues 04/21/2025 8:30 AM EDT [facility] Nutrition Therapy [address] [address] Tiffany Banks, RD 9500 [place], [place] [id number] f/u TF forula tolerance and hydration 05/18/2025 9:00 AM EDT [facility] General Surgery [address] [id number] Michael Mora PA-C 9500 [place] [address] f/u with michael mora in 2 wks 05/29/2025 9:00 AM EDT [facility] Gastroenterology [address] [place] [address] Johanna Martinez MD [facility] [address] [id number] 3 month follow up 06/28/2025 10:00 AM EDT [facility] Neurology Pain [address] [address] [phone] [place] [address] [address] [id number] Follow up for pain Scheduled Procedures Name Priority Associated Diagnoses Date/Ti me LAPAROSCOPIC JEJUNOSTOMY Nausea and vomiting, unspecified vomiting type H/O bariatric surgery Jejunostomy tube fell out 04/10/2025 10:00 AM EDT documented as of this encounter Visit Diagnoses Not on filedocumented in this encounter Care Teams Facility Maintenance Manager Relationship Specialty Start Date End Date Shlomo Hu II, MD 112 [facility] 110 [place] [address] PCP - General Internal Medicine 10/06/23 Jacob Sharp [address] [place] [address] Referring 04/30/[address] [place] [address] Registered Dietitian Nutrition 06/24/[address] [phone] Registered Dietitian Nutrition 08/27/23 Yuan Miller MD, PhD [address] [place], [place] [address] Surgeon General Surgery 02/03/24 documented as of this encounter
--- OUTSIDE RECORDS SUMMARY | 2025-04-09 11:54 | XMS_ITS | Encounter Summary ---
Author Organization [facility] Address [address] [facility] [place] [address] Care Team Providers Care Nephrology Social Worker Name Role Phone Shlomo Hu MD Primary Care Provider [phone] Jacob Sharp SOLAR SALES ENERGY ADVISOR Unavailable Thursday, Toya MARKETING INFORMATION ANALYST Unavailable [phone] Shlomo Hu MD Unavailable [phone] Shante Kumar TEST TECHNICIAN-CLINICAL QUALITY ASSURANCE ASSOCIATE Unavailable Claribel Scott RN Unavailable [phone] Jess Marsh MARKETING INFORMATION ANALYST Unavailable Esthela Tesfaye INSTRUCTOR OF SOCIOLOGY Unavailable Reason for Visit * Reason Comments Med Refill Encounter Details Date Type Department Care Team (Late st Contact Info) Description 04/15/2024 Refill [facility] [address] [facility] [address] [place] [address] Shante Kumar, TEST TECHNICIAN-CLINICAL QUALITY ASSURANCE ASSOCIATE [address] [facility] 160 [place] [address] Moderate episode of recurrent major depressive disorder [...] How often do you attend chur or advent services? 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 Not on file [...] [facility] [address] [facility] 120 [place] [address] Sonny Rodriguez DPM [address] [address] 05/04/2025 2:50 PM EDT Office Visit [facility] [address] [facility] 120 [place] [address] Sonny Rodriguez DPM [address] [address] documented as of this encounter Visit Diagnoses Diagnosis Moderate episode of recurrent major depressive disorder (HCC) documented in this encounter Additional Health Concerns Assessment Noted Time PHQ-9 Depression Total Score: 9 08/26/20 23 1:30 PM EST documented as of this encounter Care Teams Nephrology Social Worker Relationship Specialty Start Date End Date Shlomo Hu MD [address] [place] [address] [place] [address] PCP - General Internal Medicine 02/15/23 [place] [address] [facility] [place] [address] PCP - [place] [employer] 08/14/23 Shlomo Hu MD [address] [facility] 110 [place] [address] PCP - [place] Commercial 05/15/2407/14 Shante Kumar APRN-CLINICAL QUALITY ASSURANCE ASSOCIATE [address] [facility] 160 [place] [address] PCP - [place] [employer] 07/15/24 ThursdayToya LPN [address] [place] [address] Licensed Practical Nurse Family Medicine 01/19/24 10/21/24 Claribel Scott, RN [address] [place] [address] Licensed Practical Nurse Family Medicine 10/21/24 12/06/24 Jess Marsh LPN [address] [facility] 110 [place] [address] 12/06/24 Esthela Tesfaye LSW [address] [place] [address] Hot Mill Operator Family Medicine 02/03/25 documented as of this encounter
--- OUTSIDE RECORDS SUMMARY | 2025-04-09 11:54 | XMS_ITS | Encounter Summary ---
Author Organization [facility] Address [address] [place] [address] Care Team Providers Care Rod Pointer Name Role Phone Shlomo Hu MD Primary Care Provider [phone] Thursday, Toya HEAD OF PRECISION TARGETING Unavailable [phone] Shante Kumar COLLEGE OR UNIVERSITY REGISTRAR-REVIEW ENGINEER Unavailable Claribel Scott RN Unavailable [phone] Jess Marsh HEAD OF PRECISION TARGETING Unavailable Esthela Tesfaye SUPERVISOR SANDBLASTER Unavailable [phone] Encounter Details Date Type Department Care [...] any clubs o r organizations such as pentecostalism groups, unions, fraternal or athletic groups, or [...] Recorded Patient Health Questionnaire-2 Score 1 06/09/2024 [facility] - [...] 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 Not on file Not on file documented as of this encounter Plan of Treatment Upcoming Encounters Date Type Department Care Team (Late st Contact Info) Description 04/20/2025 3:00 PM EDT Office Visit [facility] [address] [place] [address] [place] [address] Sonny Rodriguez, DPM 3006 [facility] [address] 5 [place] [address] 05/04/2025 2:50 PM EDT Office Visit [facility] [address] [place] [address] [place] [address] Sonny Rodriguez, DPM 3006 [facility] [address] [place] [address] documented as of this encounter Procedures Procedure [...] QTC Calculation(Bazett) : 453 ms Calculated P Brimfield : 50 degrees Calculated R [place] : 24 degrees Calculated T [place] : 14 degrees NORMAL SINUS RHYTHM NORMAL ECG Confirmed by FENG COREA MD ([id number]) on 2024 4:16:33 PM NAME : MELINA TAVERAS PID : [id number] : 1975 Gender : Female Race : ORD : [id number] Procedure Date : Jul 29 2024 19:16:20 [...] : JERRI PATEL Procedure Note Radiology, Radiologist, - 2024 Ventricular Rate : 78 BPM Atrial Rate : 78 BPM P-R Interval : 182 ms QRS Duration : 80 ms Q-T Interval : 398 ms QTC Calculation(Bazett) : 453 ms Calculated P Brimfield : 50 degrees Calculated R [place] : 24 degrees Calculated T [place]field : 14 degrees NORMAL SINUS RHYTHM NORMAL ECG Confirmed by FENG COREA MD ([id number]) on 2024 4:16:33 PM NAME : MELINA TAVERAS PID : [id number] : 1975 Gender : Female Race : ORD : [id number] Procedure Date : Jul 29 2024 19:16:20 Edit Date : 2024 16:16:35 Diagnosis: NORMAL SINUS RHYTHM NORMAL ECG Confirmed by FENG COREA MD (65) on 2024 4:16:33 PM Test Reason : Check QT Location : 80 : G100 G100-26 Overread By : FENG COREA MD Edited By : FENG COREA MD Referred By : MARILIN HERNANDEZ Acquired by : JERRI PATEL us Generic External Data Provider ECG ORDERABLES F inal Result Performing Organization Address City/State/[facility] Co de Phone Number [facility] documented in this encounter Visit Diagnoses Not on filedocumented in this encounter Additional Health Concerns Assessment Noted Time PHQ-9 Depression Total Score: 18 024 9:42 AM EDT documented as of this encounter Care Teams Rod Pointer Relationship Specialty Start Date End Date Shlomo Hu MD 112 [facility] 110 [place] [address] PCP - General Internal Medicine 02/15/23 Shante Kumar APRN-REVIEW ENGINEER 112 [facility] 160 [place] [address] PCP - [place] Commercial 07/15/24 ThursdayToya LPN 112 [facility] 110 [place] [address] Licensed Practical Nurse Family Medicine 01/19/24 10/21/24 Claribel Scott, RN [address] [place] [address] Licensed Practical Nurse Family Medicine 10/21/24 12/06/24 Jess Marsh LPN [address] [facility] [address] [place] [address] 12/06/24 Esthela Tesafye, KIRA [address] [place] [address] House Admin Family Medicine 02/03/25 documented as of this encounter
--- OUTSIDE RECORDS SUMMARY | 2025-04-09 11:55 | XMS_ITS | Encounter Summary ---
Author Organization [facility] Address [address] [facility] [place] [address] Care Team Providers Care Solar Energy System Installer Name Role Phone Shlomo Hu MD Primary Care Provider Thursday, Toya CAMPOSN Unavailable [phone] Shlomo Hu MD Unavailable [phone] Shante Kumar AGRICULTURE PROFESSOR-RELIGIOUS EDUCATION COORDINATOR Unavailable Claribel Scott RN Unavailable Jess Marsh RESIDENT CARE SUPERVISOR Unavailable Esthela Tesfaye CATTLE DRIVER Unavailable [phone] Encounter Details Date Type Department Care Team (Late st Contact Info) Description 06/15/2024 Abstract [facility] 112 [facility] 110 [place] [address] Shlomo Hu MD 112 [facility] 110 [place] [address] Social History Tobacco Use Types [...] How often do you attend chur or pentecostalism services? 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 Not on file Not on file documented as of this encounter Plan of Treatment Upcoming Encounters Date Type Department Care Team (Late st Contact Info) Description 04/20/2025 3:00 PM EDT Office Visit [facility] [address] [place] [address] [place] [address] Sonny Rodriguez, DPM 3006 [facility] 5 [place] [address] 05/04/2025 2:50 PM EDT Office Visit [facility] [address] [place] [address] Sonny Rodriguez DPM 3006 [facility] 5 [place] [address] documented as of this encounter Visit Diagnoses Not on filedocumented in this encounter Additional Health Concerns Assessment Noted Time PHQ-9 Depression Total Score: 18 024 9:42 AM EDT documented as of this encounter Care Teams Solar Energy System Installer Relationship Specialty Start Date End Date Shlomo Hu MD [address] [place] [address] PCP - General Internal Medicine 02/15/23 Shlomo Hu MD [address] [place] [address] PCP - [place] Commercial 05/15/2407/14 Shante Kumar APRN-RELIGIOUS EDUCATION COORDINATOR [address] [place] [address] PCP - [place] Commercial 07/15/24 ThursdayToya LPN [address] [place] [address] Licensed Practical Nurse Family Medicine 01/19/24 10/21/24 Claribel Scott, PIETRO [address] [place] [address] Licensed Practical Nurse Family Medicine 10/21/24 12/06/24 Jess Marsh, DUKE 112 [facility] [address] [place] [address] 12/06/24 Esthela Tesfaye, KIRA [address] [place] [address] Offshoring Manager Family Medicine 02/03/25 documented as of this encounter
--- OUTSIDE RECORDS SUMMARY | 2025-04-09 11:55 | XMS_ITS | Encounter Summary ---
Author Organization [facility] Address [address] [place] [address] Care Team Providers Care Chuck Splitter Name Role Phone Sean Ruiz Mona GALVEZ Primary Care Provider [phone] Jacob Sharp Unavailable Rasheeda Newton RD Unavailable [phone] Unavailable [phone] Fritz HENDERSON MD, Shlomo B Primary Care Provider [phone] Yuan Miller MD, PhD Unavailable [phone] Source Comments In the event this information is protected by the Federal Confidentiality of Alcohol and Drug AbusePatient Records regulations: The Federal rules restrict any use of the information to criminally investigate or prosecute any alcohol or drug abuse patient.[facility] Encounter Details Date Type Department Care Team (Late st Contact Info) Description 08/09/2023 Get Medical Advice Gastroenterology [address] [phone] Johanna Martinez MD [facility] [address] [address] Feeding tube Social History Tobacco [...] lower risk 4 03/05/2023 Data from: https://www.neighborhoodatlas.medicine.[facility].edu/. Last address used for calculation [address] [place] [address] 03/05/2023 Comments No Sex and Gender Information [...] 04/10/2025 10:00 AM EDT Hospital Encounter Admitting [address] [place] [address] Yuan Miller MD, PhD [address] [place] [address] Nausea and vomiting, unspecified vomiting type [R11.2], H/O bariatric surgery [Z98.84], Jejunostomy tube fell out [T85.528A] 04/10/2025 10:00 AM EDT - 04/10/2025 12:00 PM EDT Surgery Admitting 9500 [place] [address] Yuan Miller MD, PhD 9500 [place] [address] LAPAROSCOPIC JEJUNOSTOMY 04/19/2025 11:00 AM EDT [facility] Neurological Anglican [address] [phone] Joann Loera APRN.EXTENSION ASSOCIATE [address] [id number] Cognitive movement issues 04/21/2025 8:30 AM EDT [facility] Nutrition Therapy [address] [phone] Tiffany Banks, RD 9500 [place] [address] f/u TF forula tolerance and hydration 05/18/2025 9:00 AM T [facility] General Surgery [address] 0193006 Michael Mora PA-C [address] 7448695 f/u with michael mora in 2 wks 05/29/2025 9:00 AM EDT [facility] Gastroenterology [address] [phone] Johanna Martinez MD [facility] [address] [id number] 3 month follow up 06/28/2025 10:00 AM T [facility] Neurology Pain [address] [place] [address] [place] [address] [place] [address] Follow up for pain Scheduled Procedures Name [...] documented as of this encounter Care Teams Chuck Splitter Relationship Specialty [place] [address] [place] [address] PCP - General Family Medicine 07/09/12 10/05/23 Shlomo Hu II, MD 112 [facility] 110 [place] [address] PCP - General Internal Medicine 10/06/23 Jacob Sharp [address] [place] [address] Referring 04/30/[address] [place] [address] Registered Dietitian Nutrition 06/24/[address]60 [place] [address] Registered Dietitian Nutrition 08/27/23 Yuan Miller MD, PhD 9500 [place], [place] [phone] Surgeon General Surgery 02/03/24 documented as of this encounter
--- OUTSIDE RECORDS SUMMARY | 2025-04-09 11:55 | XMS_ITS | Encounter Summary ---
Author Organization [facility] Address [facility] [place] [address] Care Team Providers Care Blind Teacher Name Role Phone Ruiz Sean Mona GALVEZ Primary Care Provider [phone] Jacob Sharp Unavailable Rasheeda Newton RD Unavailable [phone] Unavailable [phone] Fritz HENDERSON MD, Shlomo Momin Primary Care Provider [phone] Yuan Miller MD, PhD Unavailable [phone] Source Comments In the event this information is protected by the Federal Confidentiality of Alcohol and Drug AbusePatient Records regulations: The Federal rules restrict any use of the information to criminally investigate or prosecute any alcohol or drug abuse patient.[facility] Encounter Details Date Type Department Care Team (Late st Contact Info) Description 07/14/2013 Patient Msg Medical Records [address] [place] [address] Provider, Ccf RE: Request an Appointment Social [...] 10:00 AM EDT Hospital Encounter Admitting [address] [id number] Yuan Miller MD, PhD [address] [id number] Nausea and vomiting, unspecified vomiting type [R11.2], H/O bariatric surgery [Z98.84], Jejunostomy tube fell out [T85.528A] 04/10/2025 10:00 AM EDT - 04/10/2025 12:00 PM EDT Surgery Admitting [address] [id number] Yuan Miller MD, PhD [address] [phone] LAPAROSCOPIC JEJUNOSTOMY 04/19/2025 11:00 AM EDT [facility] Neurological Denominational [address] [id number] Joann Loera APRN.HOSE SUSPENDER CUTTER [address] [id number] Cognitive movement issues 04/21/2025 8:30 AM EDT [facility] Nutrition Therapy [address] [address] Tiffany Banks, RD [address] [address] [phone] f/u TF forula tolerance and hydration 05/18/2025 9:00 AM EDT [facility] General Surgery [address] [phone] Michael Mora PA-C 9500 [place] [address] f/u with michael mora in 2 wks 05/29/2025 9:00 AM EDT [facility] Gastroenterology [address] [address] Johanna Martinez MD [facility] [address] [address] 3 month follow up 06/28/2025 10:00 AM EDT [facility] Neurology Pain [address] [place], [place] [phone] [place] [address] [place], [place] [phone] Follow up for pain Scheduled Procedures Name [...] documented as of this encounter Care Teams Blind Teacher Relationship Specialty Start [place] [address] [address] [id number] PCP - General Family Medicine 07/09/12 10/05/23 Shlomo Hu II, MD [address] [address] PCP - General Internal Medicine 10/06/23 Jacob Sharp [address] [place] [address] Referring 04/30/[address] [place] [address] Registered Dietitian Nutrition 06/24/[address] [facility] [place] [address] Registered Dietitian Nutrition 08/27/23 [place] PhD [address] [place], [place] [address] Surgeon General Surgery 02/03/24 documented as of this encounter
--- OUTSIDE RECORDS SUMMARY | 2025-04-09 11:55 | XMS_ITS | Encounter Summary ---
Author Organization [facility] Address [facility] [place] [address] Care Team Providers Care Health Promotion Educator Name Role Phone Ruiz Sean Mona GALVEZ Primary Care Provider [phone] Jacob Sharp Unavailable Rasheeda Newton RD Unavailable [phone] Unavailable [phone] Fritz HENDERSON MD, Shlomo Momin Primary Care Provider [phone] Yuan Miller MD, PhD Unavailable [phone] Source Comments In the event this information is protected by the Federal Confidentiality of Alcohol and Drug AbusePatient Records regulations: The Federal rules restrict any use of the information to criminally investigate or prosecute any alcohol or drug abuse patient.[facility] Encounter Details Date Type Department Care Team (Late st Contact Info) Description 05/25/2013 Patient Msg Medical Records [address] [place] [address] Provider, Ccf Appointment Cancellation Request Social History [...] Travel Start Travel End [place] 03/18/2025 03/26/2025 documented as of this encounter Plan of Treatment Upcoming Encounters Date Type Department Care Team (Latest Contact Info) Description 04/10/2025 10:00 AM EDT Hospital Encounter Admitting [address] [phone] Yuan Miller MD, PhD [address] [phone] Nausea and vomiting, unspecified vomiting type [R11.2], H/O bariatric surgery [Z98.84], Jejunostomy tube fell out [T85.528A] 04/10/2025 10:00 AM EDT - 04/10/2025 12:00 PM EDT Surgery Admitting [address] [phone] Yuan Miller MD, PhD [address] [id number] LAPAROSCOPIC JEJUNOSTOMY 04/19/2025 11:00 AM EDT [facility] Neurological Mandaen 9300 [place] [address] Joann Loera APRN.NET LEAD ARCHITECT [address] [phone] Cognitive movement issues 04/21/2025 8:30 AM EDT [facility] Nutrition Therapy [address] [address] Tiffany Banks, RD 9500 [place] [address] f/u TF forula tolerance and hydration 05/18/2025 9:00 AM EDT [facility] General Surgery [address] [phone] Michael Mora PA-C 9500 [place] [address] f/u with michael mora in 2 wks 05/29/2025 9:00 AM EDT [facility] Gastroenterology [address] [place] [address] Johanna Martinez MD [facility] [address] [address] 3 month follow up 06/28/2025 10:00 AM EDT [facility] Neurology Pain [address] [place], [place] [phone] [place] [address] [place], [place] [phone] Follow up for pain Scheduled Procedures Name [...] documented as of this encounter Care Teams Health Promotion Educator Relationship Specialty Start [place] [address] [address] [phone] PCP - General Family Medicine 07/09/12 10/05/23 Shlomo Hu II, MD [address] [address] PCP - General Internal Medicine 10/06/23 Jacob Sharp [address] [place] [phone] Referring 04/30/[address] [place] [phone] Registered Dietitian Nutrition 06/24/[address] [facility] [place] [address] Registered Dietitian Nutrition 08/27/23 Yuan Miller MD, PhD [address] [phone] Surgeon General Surgery 02/03/24 documented as of this encounter
--- OUTSIDE RECORDS SUMMARY | 2025-04-09 11:55 | XMS_ITS | Encounter Summary ---
Author Organization [facility] Address [address] [place] [address] Care Team Providers Care Trucking Contractor Name Role Phone Jacob Sharp Unavailable Rasheeda Newton RD Unavailable [phone] Unavailable [phone] Fritz HENDERSON MD, Shlomo B Primary Care Provider [phone] Yuan Miller MD, PhD Unavailable [phone] Source Comments In the event this information is protected by the Federal Confidentiality of Alcohol and Drug AbusePatient Records regulations: The Federal rules restrict any use of the information to criminally investigate or prosecute any alcohol or drug abuse patient.[facility] Reason for Visit * Reason Onset Date Comments Refill Request 11/06/2024 Encounter Details Date Type Department Care Team (Late st Contact Info) Description 11/06/2024 Refill PAIN MAGGIE COSME [address] [address] TR[address]ONG KATHERIN [address] [place], [place] [id number] Johann Echeverria MD [address] [place] [address] [place] [address] Refill Request Social History Tobacco Use Types Packs/Day Years Used Date Smoking Tobacco: Never Smokeless Tobacco: Never Alcohol Use Standard Drinks/Week Comments Not Currently 0 (1 standard drink = 0.6 oz pur e alcohol) [facility] Utilities Answer Date Recorded In the [...] living in a mcc (including now)? No 10/18/2024 Area Deprivation Index Answer Date Reagan rded National Score (1-100), lower number is lower ri sk 63 03/05/2023 State Score (1-10), lower number is lower risk 4 03/05/2023 Data from: https://www.neighborhoodatlas.medicine.[facility]/. Last address used for calculation [address] 03/05/2023 Comments No [...] Assessment Author No 08/02/2024 3:06 PM Donna Oela RN * Are you blind or do you have serious difficulty seeing, even when wearing glasses? Answer Date of Assessment Author No 08/02/2024 3:06 PM Donna Olea RN * Do you have serious difficulty walking or climbing stairs? Answer Date of Assessment Author No 08/02/2024 3:06 PM Donna lOea RN * Do you have difficulty dressing [...] EST Per oarrs medication filled 11/07/24 at [facility] * Telephone Encounter - Daniela [...] 04/10/2025 10:00 AM EDT Hospital Encounter Admitting [address] [place] [address] Yuan Miller MD, PhD [address] [place] [address] Nausea and vomiting, unspecified vomiting type [R11.2], H/O bariatric surgery [Z98.84], Jejunostomy tube fell out [T85.528A] 04/10/2025 10:00 AM EDT - 04/10/2025 12:00 PM EDT Surgery Admitting [address] [place] [address] [place] [address] Yuan Miller MD, PhD [address] [id number] LAPAROSCOPIC JEJUNOSTOMY 04/19/2025 11:00 AM EDT [facility] Neurological Anabaptist [address] [phone] Joann Loera APRN.HAT CLEANER [address] [id number] Cognitive movement issues 04/21/2025 8:30 AM EDT [facility] Nutrition Therapy [address] [id number] Tiffany Banks, RD 9500 [place] [address] f/u TF forula tolerance and hydration 05/18/2025 9:00 AM EDT [facility] General Surgery [address] [place] [address] Michael Mora PA-C 9500 [place] [address] f/u with michael mora in 2 wks 05/29/2025 9:00 AM EDT [facility] Gastroenterology 2048 [place] [address] Johanna Martinez MD [facility] [address] [place], [place] [id number] 3 month follow up 06/28/2025 10:00 AM EDT [facility] Neurology Pain [address] [phone] [place] [address] [address] [id number] Follow up for pain Scheduled Procedures Name [...] of Dylon-en-Y gastric bypass Bariatric surgery status Nausea and vomiting, unspecified vomiting type H/O bariatric surgery Bariatric surgery status Jejunostomy tube fell out Mechanical complication of colostomy and enterostomy documented in this encounter Care Teams Trucking Contractor Relationship Specialty Start Date End Date Shlomo Hu II, MD [address] [facility] 110 [place] [address] PCP - General Internal Medicine 10/06/23 Jacob Sharp [address] [place] [address] Referring 04/30/[address] [place] [address] Registered Dietitian Nutrition 06/24/[address] 9500 [place] [address] Registered Dietitian Nutrition 08/27/23 Yuan Miller MD, PhD 9500 [place] [address] Surgeon General Surgery 02/03/24 documented as of this encounter
--- OUTSIDE RECORDS SUMMARY | 2025-04-09 11:55 | XMS_ITS | Encounter Summary ---
Author Organization [facility] Address [address] [place] [address] Care Team Providers Care Supervisor Prepress Name Role Phone Shlomo Hu MD Primary Care Provider Thursday, Toya CAMPOSN Unavailable [phone] Shlomo Hu MD Unavailable [phone] Shante Kumar MOVEMAN-REMOTE PILOT OPERATOR Unavailable Claribel Scott RN Unavailable Jess Marsh PUNCH MACHINE OPERATOR Unavailable Esthela Tesfaye DOCUMENT REVIEW ATTORNEY Unavailable Encounter Details Date Type Department Care Team (Late st Contact Info) Description 07/13/2024 Abstract [facility] [place] [facility] 112 [facility] 110 [place] [address] Shlomo Hu MD 112 [facility] 110 [place] [address] Social History Tobacco Use Types [...] How often do you attend chur or druze services? 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 Not on file Not on file Not on file documented as of this encounter Plan of Treatment Upcoming Encounters Date Type Department Care Team (Late st Contact Info) Description 04/20/2025 3:00 PM EDT [facility] [address] [place] [address] Sonny Rodriguez, DPM 3006 [facility] 5 [place] [address] 05/04/2025 2:50 PM EDT Office Visit [facility] [address] [place] [address] Sonny Rodriguez DPM 3006 [facility] 5 [place] [address] documented as of this encounter Visit Diagnoses Not on filedocumented in this encounter Additional Health Concerns Assessment Noted Time PHQ-9 Depression Total Score: 18 024 9:42 AM EDT documented as of this encounter Care Teams Supervisor Prepress Relationship Specialty Start Date End Date Shlomo Hu MD [address] [place] [address] PCP - General Internal Medicine 02/15/23 Shlomo Hu MD [address] [place] [address] PCP - [place] [employer] 05/15/2407/14 Shante Kumar APRN-REMOTE PILOT OPERATOR [address] [place] [address] PCP - [place] [employer] 07/15/24 ThursdayToya LPN [address] [place] [address] Licensed Practical Nurse Family Medicine 01/19/24 10/21/24 Claribel Scott, PIETRO [address] [place] [address] Licensed Practical Nurse Family Medicine 10/21/24 12/06/24 Jess Marsh, DUKE 112 [facility] [address] [place] [address] 12/06/24 Esthela Tesfaye, KIRA [address] [place] [address] Balance Wheel Screw Hole Driller Family Medicine 02/03/25 documented as of this encounter
--- OUTSIDE RECORDS SUMMARY | 2025-04-09 11:55 | XMS_ITS | Encounter Summary ---
Author Organization [facility] Address [address] [facility] [place] [address] Care Team Providers Care Chip Person Name Role Phone Shlomo Hu MD Primary Care Provider Thursday, Toya CAMPOSN Unavailable [phone] Shlomo Hu MD Unavailable [phone] Shante Kumar TANGLED YARN SPOOL STRAIGHTENER-SENIOR MARKET RESEARCH ANALYST Unavailable Claribel Scott RN Unavailable [phone] Jess Marsh WET MACHINE CUTTER Unavailable Esthela Tesfaye BLOCKER AND SEWER Unavailable Encounter Details Date Type Department Care Team (Late st Contact Info) Description 06/17/2024 Abstract [facility] [place] [facility] 112 [facility] 110 [place] [address] Shlomo Hu MD 112 [facility] 110 [place] [address] Social History Tobacco Use Types [...] any clubs o r organizations such as mu-ism groups, unions, fraternal or athletic groups, or [...] Recorded Patient Health Questionnaire-2 Score 1 06/09/2024 [facility] - Occupational [...] 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 Not on file Not on file Not on file documented as of this encounter Plan of Treatment Upcoming Encounters Date Type Department Care Team (Late st Contact Info) Description 04/20/2025 3:00 PM EDT Office Visit [facility] [address] [place] [address] Sonny Rodriguez, DPM 3006 [facility] 5 [place] [address] 05/04/2025 2:50 PM EDT Office Visit [facility] [address] [place] [address] Sonny Rodriguez DPM 3006 [facility] 5 [place] [address] documented as of this encounter Visit Diagnoses Not on filedocumented in this encounter Additional Health Concerns Assessment Noted Time PHQ-9 Depression Total Score: 18 024 9:42 AM EDT documented as of this encounter Care Teams Chip Person Relationship Specialty Start Date End Date Shlomo Hu MD [address] [place] [address] PCP - General Internal Medicine 02/15/23 Shlomo Hu MD [address] [place] [address] PCP - [place] [employer] 05/15/2407/14 Shante Kumar APRN-SENIOR MARKET RESEARCH ANALYST [address] [place] [address] PCP - [employer] 07/15/24 ThursdayToya LPN [address] [place] [address] Licensed Practical Nurse Family Medicine 01/19/24 10/21/24 Claribel Scott, PIETRO [address] [place] [address] Licensed Practical Nurse Family Medicine 10/21/24 12/06/24 Jess Marsh, DUKE 112 [facility] [address] [place] [address] 12/06/24 Esthela Tesfaye, KIRA [address] [place] [address] Pastry Cook Helper Family Medicine 02/03/25 documented as of this encounter
--- OUTSIDE RECORDS SUMMARY | 2025-04-09 11:55 | XMS_ITS | Encounter Summary ---
Author Organization [facility] Address [address] [place] [address] Care Team Providers Care Circular Knife Machine Cutter Name Role Phone Jacob Sharp Unavailable Rasheeda Newton RD Unavailable [phone] Unavailable [phone] Fritz HENDERSON MD, Shlomo Momin Primary Care Provider [phone] Yuan Miller MD, PhD Unavailable [phone] Source Comments In the event this information is protected by the Federal Confidentiality of Alcohol and Drug AbusePatient Records regulations: The Federal rules restrict any use of the information to criminally investigate or prosecute any alcohol or drug abuse patient.[facility] Encounter Details Date Type Department Care Team (Late st Contact Info) Description 10/28/2024 Get Medical Advice General Surgery [address] [place] [address] Yuan Miller MD, PhD [address] [place] [address] Medication Social History Tobacco Use Types Packs/Day Years Used Date Smoking Tobacco: Never Smokeless Tobacco: Never Alcohol Use Standard Drinks/Week Comments Not Currently 0 (1 standard drink = 0.6 oz pur e alcohol) [facility] Utilities Answer Date Recorded In the [...] lower risk 4 03/05/2023 Data from: https://www.neighborhoodatlas.medicine.[facility]/. Last address used for calculation [address] [...] 10:00 AM EDT Hospital Encounter Admitting 9500 [place] [address] Yuan Miller MD, PhD [address] [id number] Nausea and vomiting, unspecified vomiting type [R11.2], H/O bariatric surgery [Z98.84], Jejunostomy tube fell out [T85.528A] 04/10/2025 10:00 AM EDT - 04/10/2025 12:00 PM EDT Surgery Admitting [address] [id number] Yuan Miller MD, PhD [address] [phone] LAPAROSCOPIC JEJUNOSTOMY 04/19/2025 11:00 AM EDT [facility] Neurological Buddhism [address] [place] [address] Joann Loera APRN.MINE SAFETY DIRECTOR [address] [phone] Cognitive movement issues 04/21/2025 8:30 AM EDT [facility] Nutrition Therapy 2048 [place] [address] Tiffany Banks, RD [address] [phone] f/u TF forula tolerance and hydration 05/18/2025 9:00 AM EDT [facility] General Surgery [address] [place] [address] Michael Mora PA-C [address] [phone] f/u with michael mora in 2 wks 05/29/2025 9:00 AM EDT [facility] Gastroenterology [address] [address] Johanna Martinez MD [facility] [address] [place], [place] [address] 3 month follow up 06/28/2025 10:00 AM EDT [facility] Neurology Pain [address] [phone] [place] [address] [address] [phone] Follow up for pain Scheduled Procedures Name Priority Associated Diagnoses Date/Ti me LAPAROSCOPIC JEJUNOSTOMY Nausea and vomiting, unspecified vomiting type H/O bariatric surgery Jejunostomy tube fell out 04/10/2025 10:00 AM EDT documented as of this encounter Visit Diagnoses Not on filedocumented in this encounter Care Teams Circular Knife Machine Cutter Relationship Specialty Start Date End Date Shlomo Hu II, MD 112 [facility] 110 [place] [address] PCP - General Internal Medicine 10/06/23 Jacob Sharp [address] 0051945 Referring 04/30/[address] [id number] Registered Dietitian Nutrition 06/24/[address] [place], [place] [address] Registered Dietitian Nutrition 08/27/23 Yuan Miller MD, PhD [address] [place], [place] [phone] Surgeon General Surgery 02/03/24 documented as of this encounter
--- OUTSIDE RECORDS SUMMARY | 2025-04-09 11:55 | XMS_ITS | Encounter Summary ---
Author Organization [facility] Address [address] [place] [address] Care Team Providers Care Foreign Trade Teacher Name Role Phone Joseph Sean Mona GALVEZ Primary Care Provider [phone] Jacob Sharp Unavailable Rasheeda Newton RD Unavailable [phone] Unavailable [phone] Fritz HENDERSON MD, Shlomo Momin Primary Care Provider [phone] Yuan Miller MD, PhD Unavailable [phone] Source Comments In the event this information is protected by the Federal Confidentiality of Alcohol and Drug AbusePatient Records regulations: The Federal rules restrict any use of the information to criminally investigate or prosecute any alcohol or drug abuse patient.[facility] Encounter Details Date Type Department Care Team (Late st Contact Info) Description 08/13/2023 Get Medical Advice Hematology/Oncology [address] [place] [address] Lacey Youssef, ELEMENTARY SUPERVISOR.SALESPERSON RECREATIONAL VEHICLES 9504 [place] [address] Blood work Social History Tobacco [...] No 08/10/2023 Area Deprivation Index Answer Date Regaan rded National Score (1-100), lower number is lower ri sk 63 03/05/2023 State Score (1-10), lower number is lower risk 4 03/05/2023 Data from: https://www.neighborhoodatlas.medicine.[facility].edu/. Last address used for calculation [address] [place] [address] 03/05/2023 Comments No Sex and Gender Information [...] 04/10/2025 10:00 AM EDT Hospital Encounter Admitting [address] [place] [address] Yuan Miller MD, PhD [address] [place] [address] Nausea and vomiting, unspecified vomiting type [R11.2], H/O bariatric surgery [Z98.84], Jejunostomy tube fell out [T85.528A] 04/10/2025 10:00 AM EDT - 04/10/2025 12:00 PM EDT Surgery Admitting 9500 [place] [address] Yuan Miller MD, PhD [address]00 [place] [address] LAPAROSCOPIC JEJUNOSTOMY 04/19/2025 11:00 AM EDT [facility] Neurological Spiritism [address] [phone] Joann Loera APRN.SALESPERSON RECREATIONAL VEHICLES 9500 [place] [address] Cognitive movement issues 04/21/2025 8:30 AM EDT [facility] Nutrition Therapy [address] 5207306 Tiffany Banks, RD [address] [phone] f/u TF forula tolerance and hydration 05/18/2025 9:00 AM EDT [facility] General Surgery [address] 2134706 Michael Mora PA-C [address] [phone] f/u with michael mora in 2 wks 05/29/2025 9:00 AM EDT [facility] Gastroenterology [address] 1957306 Johanna Martinez MD [facility] [address] [place], [place] [address] 3 month follow up 06/28/2025 10:00 AM EDT [facility] Neurology Pain [address] [phone] Wilma Lei, [address] [address] [phone] Follow up for pain Scheduled Procedures Name [...] documented as of this encounter Care Teams Foreign Trade Teacher Relationship Specialty [place] [address] [place] [address] PCP - General Family Medicine 07/09/12 10/05/23 Shlomo Hu II, MD 112 [facility] 110 [place] [address] PCP - General Internal Medicine 10/06/23 Jacob Sharp [address] [place] [address] Referring 04/30/[address], [place] [address] Registered Dietitian Nutrition 06/24/[address]16 [place] [address] Registered Dietitian Nutrition 08/27/23 Yuan Miller MD, PhD 9500 [place] [address] Surgeon General Surgery 02/03/24 documented as of this encounter
--- OUTSIDE RECORDS SUMMARY | 2025-04-09 11:55 | XMS_ITS | Encounter Summary ---
Author Organization [facility] Address [address] [place] [address] Care Team Providers Care Hydrodynamics Teacher Name Role Phone Sean Ruiz Mona GALVEZ Primary Care Provider [phone] Jacob Sharp Unavailable Rasheeda Newton RD Unavailable [phone] Unavailable [phone] Fritz HENDERSON MD, Shlomo B Primary Care Provider [phone] Yuan Miller MD, PhD Unavailable [phone] Source Comments In the event this information is protected by the Federal Confidentiality of Alcohol and Drug AbusePatient Records regulations: The Federal rules restrict any use of the information to criminally investigate or prosecute any alcohol or drug abuse patient.[facility] Encounter Details Date Type Department Care Team (Late st Contact Info) Description 08/17/2023 Get Medical Advice Gastroenterology [address] [place] [phone] Johanna Martinez MD [facility] [address] [address] Follow up Social History Tobacco [...] risk 4 03/05/2023 Data from: https://www.neighborhoodatlas.medicine.[facility].edu/. Last address used for calculation [address] [place] [address] 03/05/2023 Comments No Sex and Gender Information [...] 04/10/2025 10:00 AM EDT Hospital Encounter Admitting [address] [place] [address] Yuan Miller MD, PhD [facility] [place] [address] Nausea and vomiting, unspecified vomiting type [R11.2], H/O bariatric surgery [Z98.84], Jejunostomy tube fell out [T85.528A] 04/10/2025 10:00 AM EDT - 04/10/2025 12:00 PM EDT Surgery Admitting 9500 [place] [address] Yuan Miller MD, PhD [address]00 [place] [address] LAPAROSCOPIC JEJUNOSTOMY 04/19/2025 11:00 AM EDT [facility] Neurological Episcopalian [address] [phone] Joann Loera, JOSE.SERVICE CENTER TECHNICIAN 9500 [place] [address] Cognitive movement issues 04/21/2025 8:30 AM EDT [facility] Nutrition Therapy [address] 1900806 Tiffany Banks, RD [address] [phone] f/u TF forula tolerance and hydration 05/18/2025 9:00 AM EDT [facility] General Surgery [address] [phone] Michael Mora PA-C 9500 [place] [address] f/u with michael mora in 2 wks 05/29/2025 9:00 AM EDT [facility] Gastroenterology [address] [phone] Johanna Martinez MD [facility] [address] [place], [place] [address] 3 month follow up 06/28/2025 10:00 AM EDT [facility] Neurology Pain [address] [phone] [place] [address] [address] [id number] Follow up for pain Scheduled Procedures Name [...] documented as of this encounter Care Teams Hydrodynamics Teacher Relationship Specialty [place] [address] [place] [address] PCP - General Family Medicine 07/09/12 10/05/23 Shlomo Hu II, MD 112 [facility] 110 [place] [address] PCP - General Internal Medicine 10/06/23 Jacob Sharp [address] [place] [address] Referring 04/30/[address] [place] [address] Registered Dietitian Nutrition 06/24/[address] [place] [address] Registered Dietitian Nutrition 08/27/23 Yuan Miller MD, PhD [address]00 [place] [address] Surgeon General Surgery 02/03/24 documented as of this encounter
--- OUTSIDE RECORDS SUMMARY | 2025-04-09 11:55 | XMS_ITS | Encounter Summary ---
Author Organization [facility] Address [address] [facility] [place] [address] Care Team Providers Care Electrical Logging Engineer Name Role Phone Shlomo Hu MD Primary Care Provider Thursday, Toya CAMPOSN Unavailable [phone] Shlomo Hu MD Unavailable [phone] Shante Kumar HEALTHCARE ASSOCIATE-MACHINE REPAIR PERSON Unavailable Clairbel Scott RN Unavailable Jess Marsh BOTANICAL TECHNICAL OFFICER Unavailable Esthela Tesfaye GENERAL OPERATOR Unavailable [phone] Encounter Details Date Type Department Care Team (Late st Contact Info) Description 07/12/2024 Abstract [facility] [place] [facility] [address] 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 Not on file Not on file documented as of this encounter Plan of Treatment Upcoming Encounters Date Type Department Care Team (Late st Contact Info) Description 04/20/2025 3:00 PM EDT Office Visit [facility] [address] [place] [address] Sonny Rodriguez, DPM 3006 [facility] [place] [facility] [place] 5 [place] [address] 05/04/2025 2:50 PM EDT Office Visit [facility] [address] [place] [address] Sonny Rodriguez DPM 3006 [facility] [place] [facility] [place] 5 [place] [address] documented as of this encounter Visit Diagnoses Not on filedocumented in this encounter Additional Health Concerns Assessment Noted Time PHQ-9 Depression Total Score: 18 024 9:42 AM EDT documented as of this encounter Care Teams Electrical Logging Engineer Relationship Specialty Start Date End Date Shlomo Hu MD [address] [place] [address] PCP - General Internal Medicine 02/15/23 Shlomo Hu MD [address] [place] [address] PCP - [place] [employer] 05/15/2407/14 Shante Kumar APRN-MACHINE REPAIR PERSON [address] [place] [address] PCP - [place] [employer] 07/15/24 ThursdayToya LPN [address] [place] [address] Licensed Practical Nurse Family Medicine 01/19/24 10/21/24 Claribel Scott, PIETRO [address] [place] [address] Licensed Practical Nurse Family Medicine 10/21/24 12/06/24 Jess Marsh, DUKE 112 [facility] [address] [place] [address] 12/06/24 Esthela Tesfaye, KIRA [address] [place] [address] Community Relations Advisor Family Medicine 02/03/25 documented as of this encounter
--- OUTSIDE RECORDS SUMMARY | 2025-04-09 11:55 | XMS_ITS | Encounter Summary ---
Author Organization [facility] Address [facility] [place] [address] Care Team Providers Care Lime Plant Operator Name Role Phone Ruiz Sean Mona GALVEZ Primary Care Provider [phone] Jacob Sharp Unavailable Rasheeda Newton RD Unavailable [phone] Unavailable [phone] Fritz HENDERSON MD, Shlomo Momin Primary Care Provider [phone] Yuan Miller MD, PhD Unavailable [phone] Source Comments In the event this information is protected by the Federal Confidentiality of Alcohol and Drug AbusePatient Records regulations: The Federal rules restrict any use of the information to criminally investigate or prosecute any alcohol or drug abuse patient.[facility] Encounter Details Date Type Department Care Team (Late st Contact Info) Description 07/14/2013 Patient Msg Medical Records [address] [place] [address] Provider, Ccf RE: Request an Appointment Social [...] 10:00 AM EDT Hospital Encounter Admitting [address] [id number] Yuan Miller MD, PhD [address] [id number] Nausea and vomiting, unspecified vomiting type [R11.2], H/O bariatric surgery [Z98.84], Jejunostomy tube fell out [T85.528A] 04/10/2025 10:00 AM EDT - 04/10/2025 12:00 PM EDT Surgery Admitting [address] [id number] Yuan Miller MD, PhD [address] [id number] LAPAROSCOPIC JEJUNOSTOMY 04/19/2025 11:00 AM EDT [facility] Neurological Pentecostal [address] [id number] Joann Loera APRN.RECORD MAKER [address] [id number] Cognitive movement issues 04/21/2025 8:30 AM EDT [facility] Nutrition Therapy [address] [address] Tiffany Banks, RD [address] [id number] f/u TF forula tolerance and hydration 05/18/2025 9:00 AM EDT [facility] General Surgery [address] 1082806 Michael Mora PA-C 9500 [place] [address] f/u with michael mora in 2 wks 05/29/2025 9:00 AM EDT [facility] Gastroenterology [address] [address] Johanna Martinez MD [facility] [address] [address] 3 month follow up 06/28/2025 10:00 AM EDT [facility] Neurology Pain [address] [place], [place] [phone] [place] [address] [place], [place] [phone] Follow up for pain Scheduled Procedures Name [...] documented as of this encounter Care Teams Lime Plant Operator Relationship Specialty [place] [address] [address] [id number] PCP - General Family Medicine 07/09/12 10/05/23 Shlomo Hu II, MD [address] [address] PCP - General Internal Medicine 10/06/23 Jacob Sharp [address] [place] [address] Referring 04/30/[address] [place] [address] Registered Dietitian Nutrition 06/24/[address] [facility] [place] [address] Registered Dietitian Nutrition 08/27/23 [place] [address] [place], [place] 5754395 Surgeon General Surgery 02/03/24 documented as of this encounter
--- OUTSIDE RECORDS SUMMARY | 2025-04-09 11:55 | XMS_ITS | Encounter Summary ---
Author Organization [facility] Address [facility] [place] [address] Care Team Providers Care Machine Pan Greaser Name Role Phone Ruiz Sean Mona GALVEZ Primary Care Provider [phone] Jacob Sharp Unavailable Rasheeda Newton RD Unavailable [phone] Unavailable [phone] Fritz HENDERSON MD, Shlomo Momin Primary Care Provider [phone] Yuan Miller MD, PhD Unavailable [phone] Source Comments In the event this information is protected by the Federal Confidentiality of Alcohol and Drug AbusePatient Records regulations: The Federal rules restrict any use of the information to criminally investigate or prosecute any alcohol or drug abuse patient.[facility] Encounter Details Date Type Department Care Team (Late st Contact Info) Description 07/14/2013 Patient Msg Medical Records [address] [place] [address] Provider, Ccf RE: Request an Appointment Social [...] file Travel History Travel Start Travel End [place] 03/18/2025 03/26/2025 documented as of this encounter Plan of Treatment Upcoming Encounters Date Type Department Care Team (Latest Contact Info) Description 04/10/2025 10:00 AM EDT Hospital Encounter Admitting [address] [id number] Yuan Miller MD, PhD [address] [phone] Nausea and vomiting, unspecified vomiting type [R11.2], H/O bariatric surgery [Z98.84], Jejunostomy tube fell out [T85.528A] 04/10/2025 10:00 AM EDT - 04/10/2025 12:00 PM EDT Surgery Admitting [address] [id number] Yuan Miller MD, PhD [address] [phone] LAPAROSCOPIC JEJUNOSTOMY 04/19/2025 11:00 AM EDT [facility] Neurological Quaker [address] [phone] Joann Loera APRN.ELECTRIC MILKERS INSTALLER [address] [phone] Cognitive movement issues 04/21/2025 8:30 AM EDT [facility] Nutrition Therapy [address] [address] Tiffany Banks, RD [address] [phone] f/u TF forula tolerance and hydration 05/18/2025 9:00 AM EDT [facility] General Surgery [address] [phone] Michael Mora PA-C 9500 [place] [address] f/u with michael mora in 2 wks 05/29/2025 9:00 AM EDT [facility] Gastroenterology [address] [facility] [address] [address] 3 month follow up 06/28/2025 10:00 AM EDT [facility] Neurology Pain 17[address] [place], [place] [phone] [place] [address] [place], [place] [phone] Follow up for pain Scheduled Procedures Name [...] documented as of this encounter Care Teams Machine Pan Greaser Relationship Specialty [place] [address] [address] [id number] PCP - General Family Medicine 07/09/12 10/05/23 Shlomo Hu II, MD [address] [address] PCP - General Internal Medicine 10/06/23 Jacob Sharp [address] [place] [address] Referring 04/30/[address] [place] [address] Registered Dietitian Nutrition 06/24/[address] [facility] [place] [address] Registered Dietitian Nutrition 08/27/23 [place] [address] [place], [place] [phone] Surgeon General Surgery 02/03/24 documented as of this encounter
--- OUTSIDE RECORDS SUMMARY | 2025-04-09 11:55 | XMS_ITS | Encounter Summary ---
Author Organization [facility] Address [address] [place] [address] Care Team Providers Care Certified Caregiver Name Role Phone Jacob Sharp Unavailable Rasheeda Newton RD Unavailable [phone] Unavailable [phone] Fritz HENDERSON MD, Shlomo B Primary Care Provider [phone] Yuan Miller MD, PhD Unavailable [phone] Source Comments In the event this information is protected by the Federal Confidentiality of Alcohol and Drug AbusePatient Records regulations: The Federal rules restrict any use of the information to criminally investigate or prosecute any alcohol or drug abuse patient.[facility] Reason for Visit * Reason Comments Refill Request Encounter Details Date Type Department Care Team (Late st Contact Info) Description 11/03/2024 Refill PAIN MAGGIE COSME [address] [address] [facility] [address] [place], [place] [phone] Johann Echeverria MD [address] [place] [address] [address] [place], [place] [phone] Refill Request Social History Tobacco Use Types Packs/Day Years Used Date Smoking Tobacco: Never Smokeless Tobacco: Never Alcohol Use Standard Drinks/Week Comments Not Currently 0 (1 standard drink = 0.6 oz pur e alcohol) [facility] Utilities Answer Date Recorded In the [...] lower risk 4 03/05/2023 Data from: https://www.neighborhoodatlas.medicine.[place] healthcare/. Last address used for calculation [address] [...] to see if Rx was sent per director of pharmacy no transfer at this time. * Telephone Encounter - Daniela Ford LPN - 11/04/2024 8:44 AM EST Oarrs:reviewed Last fill:09/12/25 Jaycee:04/07/24 Patient should have refills remaining will contact pharmacy when open Spoke with Rp at [facility]> patient transferred meds to [facility]3]. Spoke Rp at [facility]3] > Rx remaining. Called patient informed of remaining rx per patient she will call [facility] to transfer rx to [facility]. Will contact ddm to confirm received transferred Rx. documented in this encounter Plan of Treatment Upcoming Encounters Date Type Department Care Team (Latest Contact Info) Description 04/10/2025 10:00 AM EDT Hospital Encounter Admitting 9500 [place] [address] Yuan Miller MD, PhD [address] [place] [address] Nausea and vomiting, unspecified vomiting type [R11.2], H/O bariatric surgery [Z98.84], Jejunostomy tube fell out [T85.528A] 04/10/2025 10:00 AM EDT - 04/10/2025 12:00 PM EDT Surgery Admitting 9500 [place] [address] Yuan Miller MD, PhD [address] [place] [address] LAPAROSCOPIC JEJUNOSTOMY 04/19/2025 11:00 AM EDT [facility] Neurological Lutheran [address] [phone] Joann Loera APRN.ENERGY EFFICIENCY FINANCE MANAGER 9500 [place] [address] Cognitive movement issues 04/21/2025 8:30 AM EDT [facility] Nutrition Therapy [address] [phone] Tiffany Banks, RD [address] 3067395 f/u TF forula tolerance and hydration 05/18/2025 9:00 AM EDT [facility] General Surgery [address] [phone] Michael Mora PA-C [address] 3067395 f/u with michael mora in 2 wks 05/29/2025 9:00 AM EDT [facility] Gastroenterology [address] [phone] Johanna Martinez MD [facility] [address] [address] 3 month follow up 06/28/2025 10:00 AM EDT [facility] Neurology Pain [address] [phone] [place] [address] [place] [address] Follow up for pain Scheduled Procedures Name [...] enterostomy documented in this encounter Care Teams Certified Caregiver Relationship Specialty Start Date End Date Shlomo Hu II, MD [address] [place] [address] PCP - General Internal Medicine 10/06/23 Jacob Sharp [address] [place] [address] Referring 04/30/[address] [address] Registered Dietitian Nutrition 06/24/[address] 950 [place] [address] Registered Dietitian Nutrition 08/27/23 Yuan Miller MD, PhD 9500 [place] [address] Surgeon General Surgery 02/03/24 documented as of this encounter
--- OUTSIDE RECORDS SUMMARY | 2025-04-09 11:55 | XMS_ITS | Encounter Summary ---
Author Organization [facility] Address [address] [facility] [address] Care Team Providers Care Candy Mixer Name Role Phone Shlomo Hu MD Primary Care Provider Thursday, Toya CAMPOSN Unavailable [phone] Shlomo Hu MD Unavailable [phone] Shante Kumar SECRETARY OF STATE-POLE TESTER Unavailable Claribel Scott RN Unavailable [phone] Jess Marsh APPRENTICE STYLIST Unavailable Esthela Tesfaye ELECTRONICS ENGINEERING TECHNOLOGIST Unavailable Encounter Details Date Type Department Care Team (Late st Contact Info) Description 07/04/2024 Abstract [facility] [place] [facility] 112 [facility] 110 [place] [address] Shlomo Hu MD 112 [facility] 110 [place] [address] Social History Tobacco Use Types [...] How often do you attend chur or denominational services? 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 Not on file Not on file documented as of this encounter Plan of Treatment Upcoming Encounters Date Type Department Care Team (Late st Contact Info) Description 04/20/2025 3:00 PM EDT Office Visit [facility] [address] [place] [address] Sonny Rodriguez, DPM 3006 [facility] 5 [place] [address] 05/04/2025 2:50 PM EDT Office Visit [facility] [address] [place] [address] Sonny Rodriguez DPM 3006 [facility] 5 [place] [address] documented as of this encounter Visit Diagnoses Not on filedocumented in this encounter Additional Health Concerns Assessment Noted Time PHQ-9 Depression Total Score: 18 024 9:42 AM EDT documented as of this encounter Care Teams Candy Mixer Relationship Specialty Start Date End Date Shlomo Hu MD [address] [place] [address] PCP - General Internal Medicine 02/15/23 Shlomo Hu MD [address] [place] [address] PCP - [place] [employer] 05/15/2407/14 Shante Kumar APRN-POLE TESTER [address] [place] [address] PCP - [place] [employer] 07/15/24 ThursdayToya LPN [address] [place] [address] Licensed Practical Nurse Family Medicine 01/19/24 10/21/24 Claribel Scott, PIETRO [address] [place] [address] Licensed Practical Nurse Family Medicine 10/21/24 12/06/24 Jess Marsh, DUKE 112 [facility] [address] [place] [address] 12/06/24 Esthela Tesfaye, KIRA [address] [place] [address] Chief Jailer Family Medicine 02/03/25 documented as of this encounter
--- OUTSIDE RECORDS SUMMARY | 2025-04-09 11:55 | XMS_ITS | Encounter Summary ---
Author Organization [facility] Address [address] [facility] [place] [address] Care Team Providers Care Salvage Cutter Name Role Phone Shlomo Hu MD Primary Care Provider Thursday, Toya CAMPOSN Unavailable [phone] Shlomo Hu MD Unavailable [phone] Shante Kumar LEAF BLENDER-MANAGER CT Unavailable Claribel Scott RN Unavailable [phone] Jess Marsh FLOOR TRADER Unavailable Esthela Tesfaye CASUALTY CLAIMS SUPERVISOR Unavailable Encounter Details Date Type Department Care Team (Late st Contact Info) Description 07/13/2024 Abstract [facility] [place] [facility] [address] [facility] 110 [place] [address] Shlomo Hu MD 112 [facility] 110 [place] [address] Social History Tobacco Use Types [...] do you attend chur or holiness services? 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 Not on file Not on file documented as of this encounter Plan of Treatment Upcoming Encounters Date Type Department Care Team (Late st Contact Info) Description 04/20/2025 3:00 PM EDT [facility] Visit [facility] [address] [place] [address] Sonny Rodriguez, DPM 3006 [facility] 5 [place] [address] 05/04/2025 2:50 PM EDT Office Visit [facility] [address] [place] [address] Sonny Rodriguez DPM 3006 [facility] 5 [place] [address] documented as of this encounter Visit Diagnoses Not on filedocumented in this encounter Additional Health Concerns Assessment Noted Time PHQ-9 Depression Total Score: 18 024 9:42 AM EDT documented as of this encounter Care Teams Salvage Cutter Relationship Specialty Start Date End Date Shlomo Hu MD [address] [place] [address] PCP - General Internal Medicine 02/15/23 Shlomo Hu MD [address] [place] [address] PCP - [place] [employer] 05/15/2407/14 Shante Kumar APRN-MANAGER CT [address] [place] [address] PCP - [place] [employer] 07/15/24 ThursdayToya LPN [address] [place] [address] Licensed Practical Nurse Family Medicine 01/19/24 10/21/24 Claribel Scott, PIETRO [address] [place] [address] Licensed Practical Nurse Family Medicine 10/21/24 12/06/24 Jess Marsh, DUKE 112 [facility] [address] [place] [address] 12/06/24 Esthela Tesfaye, KIRA [address] [place] [address] Coal Dumping Equipment Operator Family Medicine 02/03/25 documented as of this encounter
--- OUTSIDE RECORDS SUMMARY | 2025-04-09 11:55 | XMS_ITS | Encounter Summary ---
Author Organization [facility] Address [address] [place] [address] Care Team Providers Care Band Splicer Name Role Phone Jacob Sharp Unavailable Rasheeda Newton RD Unavailable [phone] Unavailable [phone] Fritz HENDERSON MD, Shlomo Momin Primary Care Provider [phone] Yuan Miller MD, PhD Unavailable [phone] Source Comments In the event this information is protected by the Federal Confidentiality of Alcohol and Drug AbusePatient Records regulations: The Federal rules restrict any use of the information to criminally investigate or prosecute any alcohol or drug abuse patient.[facility] Encounter Details Date Type Department Care Team (Late st Contact Info) Description 11/04/2024 Get Medical Advice General Surgery [address] [place] [address] Yuan Miller MD, PhD [address] [place] [address] Infection of site Social History Tobacco Use Types Packs/Day Years Used Date Smoking Tobacco: Never Smokeless Tobacco: Never Alcohol Use Standard Drinks/Week Comments Not Currently 0 (1 standard drink = 0.6 oz pur e alcohol) [facility] Utilities Answer Date Recorded [...] 4 03/05/2023 Data from: https://www.neighborhoodatlas.[facility]/. Last address used for calculation [address] [...] 10:00 AM EDT Hospital Encounter Admitting [address] [phone] Yuan Miller MD, PhD [address] [phone] Nausea and vomiting, unspecified vomiting type [R11.2], H/O bariatric surgery [Z98.84], Jejunostomy tube fell out [T85.528A] 04/10/2025 10:00 AM EDT - 04/10/2025 12:00 PM EDT Surgery Admitting [address] [phone] Yuan Milelr MD, PhD [address] [phone] LAPAROSCOPIC JEJUNOSTOMY 04/19/2025 11:00 AM EDT [facility] Neurological Caoda[facility] [address]300 [place] [address] Joann Loera APRN.EDITOR PRODUCER [address] [phone] Cognitive movement issues 04/21/2025 8:30 AM EDT [facility] Nutrition Therapy [address] [phone] Tiffany Banks, RD 9500 [place] [address] f/u TF forula tolerance and hydration 05/18/2025 9:00 AM EDT [facility] General Surgery [address] [place] [address] Michael Mora PA-C [address] 0878995 f/u with michael mora in 2 wks 05/29/2025 9:00 AM EDT [facility] Gastroenterology [address] [phone] Johanna Martinez MD [facility] [address] [phone] 3 month follow up 06/28/2025 10:00 AM EDT [facility] Neurology Pain [address] [address] 0878906 [place] [address] [place], [place] 3352995 Follow up for pain Scheduled Procedures Name Priority Associated Diagnoses Date/Ti me LAPAROSCOPIC JEJUNOSTOMY Nausea and vomiting, unspecified vomiting type H/O bariatric surgery Jejunostomy tube fell out 04/10/2025 10:00 AM EDT documented as of this encounter Visit Diagnoses Not on filedocumented in this encounter Care Teams Band Splicer Relationship Specialty Start Date End Date Shlomo Hu II, MD [address] [place] [address] PCP - General Internal Medicine 10/06/23 Jacob Sharp [address] [address] [phone] Referring 04/30/[address] [id number] Registered Dietitian Nutrition 06/24/[address] [place], [place] [phone] Registered Dietitian Nutrition 08/27/23 Yuan Miller MD, PhD [address] [place], [place] [phone] Surgeon General Surgery 02/03/24 documented as of this encounter
--- OUTSIDE RECORDS SUMMARY | 2025-04-09 11:55 | XMS_ITS | Encounter Summary ---
Author Organization [facility] Address [address] [place] [address] Care Team Providers Care Talent Engineer Name Role Phone Jacob Sharp Unavailable Rasheeda Newton RD Unavailable [phone] Unavailable [phone] Fritz HENDERSON MD, Shlomo B Primary Care Provider [phone] Yuan Miller MD, PhD Unavailable [phone] Source Comments In the event this information is protected by the Federal Confidentiality of Alcohol and Drug AbusePatient Records regulations: The Federal rules restrict any use of the information to criminally investigate or prosecute any alcohol or drug abuse patient.[facility] Encounter Details Date Type Department Care Team (Late st Contact Info) Description 11/04/2024 Patient Msg General Surgery [address] [phone] Sayra Rodriguez, RN Appointment Cancellation Social History Tobacco Use Types Packs/Day Years Used Date Smoking Tobacco: Never Smokeless Tobacco: Never Alcohol Use Standard Drinks/Week Comments Not Currently 0 (1 standard drink = 0.6 oz pur e alcohol) [facility] Utilities Answer Date Recorded In the past 12 months has th e electric, gas, oil, or water [employer] threatened to shut off services in your [...] is lower risk 4 03/05/2023 Data from: https://www.neighborhoodatlas.medicine.[facility]/. Last address used for calculation [address] [...] file Travel History Travel Start Travel End [place] 03/18/2025 03/26/2025 documented as of this encounter [...] 10:00 AM EDT Hospital Encounter Admitting 9500 [place] [address] Yuan Miller MD, PhD [address] [phone] Nausea and vomiting, unspecified vomiting type [R11.2], H/O bariatric surgery [Z98.84], Jejunostomy tube fell out [T85.528A] 04/10/2025 10:00 AM EDT - 04/10/2025 12:00 PM EDT Surgery Admitting 9500 [place] [address] Yuan Miller MD, PhD 9500 [place] [address] LAPAROSCOPIC JEJUNOSTOMY 04/19/2025 11:00 AM EDT [facility] Neurological Faith [address] [place] [address] Joann Loera APRN.VOCATIONAL EDUCATION TEACHER 9500 [place] [address] Cognitive movement issues 04/21/2025 8:30 AM EDT [facility] Nutrition Therapy [address] [address] Tiffany Banks, RD 9500 [place] [address] f/u TF forula tolerance and hydration 05/18/2025 9:00 AM EDT [facility] General Surgery 9299 [place] [address] Michael Mora PA-C 9500 [place] [address] f/u with michael mora in 2 wks 05/29/2025 9:00 AM EDT [facility] Gastroenterology [address] [phone] Johanna Martinez MD [facility] [address] [place] [address] 3 month follow up 06/28/2025 10:00 AM EDT [facility] Neurology Pain [address] [place] [address] [place] [address] [place] [address] Follow up for pain Scheduled Procedures Name Priority Associated Diagnoses Date/Ti me LAPAROSCOPIC JEJUNOSTOMY Nausea and vomiting, unspecified vomiting type H/O bariatric surgery Jejunostomy tube fell out 04/10/2025 10:00 AM EDT documented as of this encounter Visit Diagnoses Not on filedocumented in this encounter Care Teams Talent Engineer Relationship Specialty Start Date End Date Shlomo Hu II, MD [address] [place] [address] PCP - General Internal Medicine 10/06/23 Jacob Sharp [address] [address] [phone] Referring 04/30/[address] [place], [place] [phone] Registered Dietitian Nutrition 06/24/[address]00 [place] [address] Registered Dietitian Nutrition 08/27/23 Yuan Miller MD, PhD 9500 [place] [address] Surgeon General Surgery 02/03/24 documented as of this encounter
--- OUTSIDE RECORDS SUMMARY | 2025-04-09 11:55 | XMS_ITS | Encounter Summary ---
Author Organization [facility] Address [address] [place] [address] Care Team Providers Care Attending Anesthesiologist Name Role Phone Jacob Sharp Unavailable Aman Rasheeda TRUONG Unavailable [phone] Unavailable [phone] Fritz HENDERSON MD, Shlomo B Primary Care Provider [phone] Yuan Miller MD, PhD Unavailable [phone] Source Comments In the event this information is protected by the Federal Confidentiality of Alcohol and Drug AbusePatient Records regulations: The Federal rules restrict any use of the information to criminally investigate or prosecute any alcohol or drug abuse patient.[facility] Encounter Details Date Type Department Care Team (Late st Contact Info) Description 10/28/2024 Patient Msg General Surgery [address] [id number] Yenny Cast RN F/Y MYC message Social History Tobacco Use Types Packs/Day Years Used Date Smoking Tobacco: Never Smokeless Tobacco: Never Alcohol Use Standard Drinks/Week Comments Not Currently 0 (1 standard drink = 0.6 oz pur e alcohol) [facility] Utilities Answer Date Recorded In the past 12 months has e [employer], [employer], oil, or water company threatened to shut [...] is lower risk 4 03/05/2023 Data from: https://www.neighborhoodatlas.medicine.[place]/. Last address used for calculation [address] 270 03/05/2023 Comments No Sex [...] 10:00 AM EDT Hospital Encounter Admitting [address] [place] [address] Yuan Miller MD, PhD [address] [id number] Nausea and vomiting, unspecified vomiting type [R11.2], H/O bariatric surgery [Z98.84], Jejunostomy tube fell out [T85.528A] 04/10/2025 10:00 AM EDT - 04/10/2025 12:00 PM EDT Surgery Admitting [address] [id number] Yuan Miller MD, PhD [address] [id number] LAPAROSCOPIC JEJUNOSTOMY 04/19/2025 11:00 AM EDT [facility] Neurological Pent[facility]ostal [address] [place] [address] Joann Loera APRN.TEACHING FELLOW [address] [id number] Cognitive movement issues 04/21/2025 8:30 AM EDT [facility] Nutrition Therapy [address] [address] Tiffany Banks, RD [address] [place] [address] f/u TF forula tolerance and hydration 05/18/2025 9:00 AM EDT [facility] General Surgery [address] [place] [address] Michael Mora PA-C [address] [place] [address] f/u with michael mora in 2 wks 05/29/2025 9:00 AM EDT [facility] Gastroenterology [address] [place] [address] 1968106 Johanna Martinez MD [facility] [address] [place] [address] 3 month follow up 06/28/2025 10:00 AM EDT [facility] Neurology Pain [address] [place] [address] [place] [address] [place], [place] [phone] Follow up for pain Scheduled Procedures Name Priority Associated Diagnoses Date/Ti me LAPAROSCOPIC JEJUNOSTOMY Nausea and vomiting, unspecified vomiting type H/O bariatric surgery Jejunostomy tube fell out 04/10/2025 10:00 AM EDT documented as of this encounter Visit Diagnoses Not on filedocumented in this encounter Care Teams Attending Anesthesiologist Relationship Specialty Start Date End Date Shlomo Hu II, MD [address] [place] [address] PCP - General Internal Medicine 10/06/23 Jcaob Sharp [address] [place] [address] Referring 04/30/[address] [place], [place] [address] Registered Dietitian Nutrition 06/24/[address] [place] [phone] Registered Dietitian Nutrition 08/27/23 Yuan Miller MD, PhD [address] [place], [place] [phone] Surgeon General Surgery 02/03/24 documented as of this encounter
--- OUTSIDE RECORDS SUMMARY | 2025-04-09 11:55 | XMS_ITS | Encounter Summary ---
Author Organization [facility] Address [facility] [place] [address] Care Team Providers Care Java Xml Developer Name Role Phone Ruiz Sean Mona GALVEZ Primary Care Provider [phone] Jacob Sharp Unavailable Rasheeda Newton RD Unavailable [phone] Unavailable [phone] Fritz HENDERSON MD, Shlomo Momin Primary Care Provider [phone] Yuan Miller MD, PhD Unavailable [phone] Source Comments In the event this information is protected by the Federal Confidentiality of Alcohol and Drug AbusePatient Records regulations: The Federal rules restrict any use of the information to criminally investigate or prosecute any alcohol or drug abuse patient.[facility] Encounter Details Date Type Department Care Team (Late st Contact Info) Description 07/22/2013 Patient Msg Medical Records [address] [place] [address] Provider, Ccf RE: Request an Appointment Social [...] 10:00 AM EDT Hospital Encounter Admitting [address] [phone] Yuan Miller MD, PhD [address] [phone] Nausea and vomiting, unspecified vomiting type [R11.2], H/O bariatric surgery [Z98.84], Jejunostomy tube fell out [T85.528A] 04/10/2025 10:00 AM EDT - 04/10/2025 12:00 PM EDT Surgery Admitting [address] [phone] Yuan Miller MD, PhD [address] [id number] LAPAROSCOPIC JEJUNOSTOMY 04/19/2025 11:00 AM EDT [facility] Neurological Anabaptist [address] [phone] Joann Loera APRN.SENIOR BIOSTATISTICIAN/GROUP LEADER [address] [phone] Cognitive movement issues 04/21/2025 8:30 AM EDT [facility] Nutrition Therapy [address] [address] Tiffany Banks, RD [address] [place] [phone] f/u TF forula tolerance and hydration 05/18/2025 9:00 AM EDT [facility] General Surgery [address] [phone] Michael Mora PA-C [address]00 [place] [address] f/u with michael mora in 2 wks 05/29/2025 9:00 AM EDT [facility] Gastroenterology [address] [address] Johanna Martinez MD [facility] [address] [address] 3 month follow up 06/28/2025 10:00 AM EDT [facility] Neurology Pain [address] [place], [place] 0429[address] [place] [address] [place], [place] [phone] Follow up for pain Scheduled Procedures Name [...] documented as of this encounter Care Teams Java Xml Developer Relationship Specialty [place] [address] [place] [phone] PCP - General Family Medicine 07/09/12 10/05/23 Shlomo Hu II, MD [address] [address] PCP - General Internal Medicine 10/06/23 Jacob Sharp [address] [place] [address] Referring 04/30/[address] [place] [address] Registered Dietitian Nutrition 06/24/[address] [facility] [place] [address] Registered Dietitian Nutrition 08/27/23 [place] PhD [address] [place], [place] [address] Surgeon General Surgery 02/03/24 documented as of this encounter
--- OUTSIDE RECORDS SUMMARY | 2025-04-09 11:55 | XMS_ITS | Encounter Summary ---
Author Organization [facility] Address [address] [place] [address] Care Team Providers Care Plate Shop Helper Name Role Phone Jacob Sharp Unavailable Rasheeda Newton RD Unavailable [phone] Unavailable [phone] Fritz HENDERSON MD, Shlomo Momin Primary Care Provider [phone] Yuan Miller MD, PhD Unavailable [phone] Source Comments In the event this information is protected by the Federal Confidentiality of Alcohol and Drug AbusePatient Records regulations: The Federal rules restrict any use of the information to criminally investigate or prosecute any alcohol or drug abuse patient.[facility] Encounter Details Date Type Department Care Team (Late st Contact Info) Description 11/06/2024 Get Medical Advice Pain Management [address] [place], [place] [phone] Johann Echeverria MD [address] [place], [place] [phone] Gabapentin prescriptions Social History Tobacco Use Types Packs/Day Years Used Date Smoking Tobacco: Never Smokeless Tobacco: Never Alcohol Use Standard Drinks/Week Comments Not Currently 0 (1 standard drink = 0.6 oz pur e alcohol) [facility] Utilities Answer Date Recorded In [...] lower risk 4 03/05/2023 Data from: https://www.neighborhoodatlas.medicine.[facility]/. Last address used for calculation [address] 270 03/05/2023 Comments No [...] EDT Hospital Encounter Admitting [facility] [place] [address] Yuan Miller MD, PhD [facility] [place] [phone] Nausea and vomiting, unspecified vomiting type [R11.2], H/O bariatric surgery [Z98.84], Jejunostomy tube fell out [T85.528A] 04/10/2025 10:00 AM EDT - 04/10/2025 12:00 PM EDT Surgery Admitting [address] [place] [address] Yuan Miller MD, PhD [address] [place], [place] [phone] LAPAROSCOPIC JEJUNOSTOMY 04/19/2025 11:00 AM EDT [facility] Neurological Worship [address] [place] [address] Joann Loera APRN.DENTAL INTERN [address] [phone] Cognitive movement issues 04/21/2025 8:30 AM EDT [facility] Nutrition Therapy [address] [address] Tiffany Banks, RD [address]00 [place] [address] f/u TF forula tolerance and hydration 05/18/2025 9:00 AM EDT [facility] General Surgery [address] [phone] Michael Mora PA-C [address] [place] [address] [phone] f/u with michael mora in 2 wks 05/29/2025 9:00 AM EDT [facility] Gastroenterology [address] [place], [place] [phone] Johanna Martinez MD [facility] [address] [phone] 3 month follow up 06/28/2025 10:00 AM EDT [facility] Neurology Pain [address] [place] [phone] [place] [address] [address] [phone] Follow up for pain Scheduled Procedures Name Priority Associated Diagnoses Date/Ti me LAPAROSCOPIC JEJUNOSTOMY Nausea and vomiting, unspecified vomiting type H/O bariatric surgery Jejunostomy tube fell out 04/10/2025 10:00 AM EDT documented as of this encounter Visit Diagnoses Not on filedocumented in this encounter Care Teams Plate Shop Helper Relationship Specialty Start Date End Date Shlomo Hu II, MD [address] [facility] 110 [place] [address] PCP - General Internal Medicine 10/06/23 Jacob Sharp [address] [phone] Referring 04/30/[address] [address] [phone] Registered Dietitian Nutrition 06/24/[address] [place], [place] [phone] Registered Dietitian Nutrition 08/27/23 Yuan Miller MD, PhD [address] [place] [address] Surgeon General Surgery 02/03/24 documented as of this encounter
--- OUTSIDE RECORDS SUMMARY | 2025-04-09 11:55 | XMS_ITS | Encounter Summary ---
Author Organization [facility] Address [address] [place] [address] Care Team Providers Care Mill Attendant Name Role Phone Jacob Sharp Unavailable Rasheeda Newton RD Unavailable [phone] Unavailable [phone] Fritz HENDERSON MD, Shlomo B Primary Care Provider [phone] Yuan Miller MD, PhD Unavailable [phone] Source Comments In the event this information is protected by the Federal Confidentiality of Alcohol and Drug AbusePatient Records regulations: The Federal rules restrict any use of the information to criminally investigate or prosecute any alcohol or drug abuse patient.[facility] Encounter Details Date Type Department Care Team (Late st Contact Info) Description 10/17/2024 Get Medical Advice Gastroenterology [address] [phone] Johanna Martinez MD [facility] [address] [phone] Stoole Social History Tobacco Use Types Packs/Day Years Used Date Smoking Tobacco: Never Smokeless Tobacco: Never Alcohol Use Standard Drinks/Week Comments Not Currently 0 (1 standard drink = 0.6 oz pur e alcohol) [facility] Utilities Answer Date Recorded In the past [...] in the past 12 m [facility], were you homeless or living in a retirement (including now)? No 10/18/2024 Area Deprivation Index Answer Date Reagan rded National Score (1-100), lower number is lower ri sk 63 03/05/2023 State Score (1-10), lower number is lower risk 4 03/05/2023 Data from: https://www.neighborhoodatlas.[facility]/. Last address used for calculation [address] [...] 10:00 AM EDT Hospital Encounter Admitting [address]00 [place] [address] Yuan Miller MD, PhD [address] [place] [phone] Nausea and vomiting, unspecified vomiting type [R11.2], H/O bariatric surgery [Z98.84], Jejunostomy tube fell out [T85.528A] 04/10/2025 10:00 AM EDT - 04/10/2025 12:00 PM EDT Surgery Admitting [address] [phone] Yuan Miller MD, PhD [address] [place] [phone] LAPAROSCOPIC JEJUNOSTOMY 04/19/2025 11:00 AM EDT [facility] [address] [place] [address] Joann Loera APRN.SHAREMILKER [address] [place] [address] [phone] Cognitive movement issues 04/21/2025 8:30 AM EDT [facility] Nutrition Therapy [address] [address] Tiffany Banks, RD [address] [place] [phone] f/u TF forula tolerance and hydration 05/18/2025 9:00 AM EDT [facility] General Surgery [address] [place] [address] Michael Mora PA-C [address]00 [place] [address] f/u with michael mora in 2 wks 05/29/2025 9:00 AM EDT [facility] [address] [place] [address] 0501006 Johanna Martinez MD [facility] [address] [phone] 3 month follow up 06/28/2025 10:00 AM EDT [facility] Neurology Pain [address] [place] 2275706 [place] [address] [place] [address] Follow up for pain Scheduled Procedures Name Priority Associated Diagnoses Date/Ti me LAPAROSCOPIC JEJUNOSTOMY Nausea and vomiting, unspecified vomiting type H/O bariatric surgery Jejunostomy tube fell out 04/10/2025 10:00 AM EDT documented as of this encounter Visit Diagnoses Not on filedocumented in this encounter Care Teams Mill Attendant Relationship Specialty Start Date End Date Shlomo Hu II, MD [address] [place] [address] 110 [place] [address] PCP - General Internal Medicine 10/06/23 Jacob Sharp [address] [place] [address] Referring 04/30/[address] [place] [phone] Registered Dietitian Nutrition 06/24/[address] [place], [place] 8[address] Registered Dietitian Nutrition 08/27/23 Yuan Miller MD, PhD [facility] [place] [phone] Surgeon General Surgery 02/03/24 documented as of this encounter
--- OUTSIDE RECORDS SUMMARY | 2025-04-09 11:55 | XMS_ITS | Encounter Summary ---
Author Organization [facility] Address [address] [place] [address] Care Team Providers Care Traveling Accountant Name Role Phone Jacob Sharp Unavailable Rasheeda Newton RD Unavailable [phone] Unavailable [phone] Fritz HENDERSON MD, Shlomo Momin Primary Care Provider [phone] Yuan Miller MD, PhD Unavailable [phone] Source Comments In the event this information is protected by the Federal Confidentiality of Alcohol and Drug AbusePatient Records regulations: The Federal rules restrict any use of the information to criminally investigate or prosecute any alcohol or drug abuse patient.[facility] Encounter Details Date Type Department Care Team (Late st Contact Info) Description 10/28/2024 Get Medical Advice General Surgery [address]300 [place] [address] Yuan Miller MD, PhD 5690 [place] [address] Meds Social History Tobacco Use Types Packs/Day Years Used Date Smoking Tobacco: Never Smokeless Tobacco: Never Alcohol Use Standard Drinks/Week Comments Not Currently 0 (1 standard drink = 0.6 oz pur e alcohol) [facility] Utilities Answer Date Recorded In the [...] 4 03/05/2023 Data from: https://www.neighborhoodatlas.medicine.[facility]/. Last address used for calculation [address] 270 03/05/2023 [...] AM EDT Hospital Encounter Admitting [address] [place] [address] Yuan Miller MD, PhD [address] [place] [address] [phone] Nausea and vomiting, unspecified vomiting type [R11.2], H/O bariatric surgery [Z98.84], Jejunostomy tube fell out [T85.528A] 04/10/2025 10:00 AM EDT - 04/10/2025 12:00 PM EDT Surgery Admitting [address] [phone] Yuan Miller MD, PhD [address] [phone] LAPAROSCOPIC JEJUNOSTOMY 04/19/2025 11:00 AM EDT [facility] Neurological Episcopalian [address] [place] [address] Joann Loera APRN.JUNIOR FINANCIAL ANALYST [address] [phone] Cognitive movement issues 04/21/2025 8:30 AM EDT [facility] Nutrition Therapy [address] [address] Tiffany Banks, RD [address] [place] [phone] f/u TF forula tolerance and hydration 05/18/2025 9:00 AM EDT [facility] General Surgery 9300 [place] [address] Michael Mora PA-C [address] [place] [phone] f/u with michael mora in 2 wks 05/29/2025 9:00 AM EDT [facility] Gastroenterology [address] [address] Johanna Martinez MD [facility] [address] [place], [place] [address] 3 month follow up 06/28/2025 10:00 AM EDT [facility] Neurology Pain [address] [place] [phone] [place] [address] [place], [place] [phone] Follow up for pain Scheduled Procedures Name Priority Associated Diagnoses Date/Ti me LAPAROSCOPIC JEJUNOSTOMY Nausea and vomiting, unspecified vomiting type H/O bariatric surgery Jejunostomy tube fell out 04/10/2025 10:00 AM EDT documented as of this encounter Visit Diagnoses Not on filedocumented in this encounter Care Teams Traveling Accountant Relationship Specialty Start Date End Date Shlomo Hu II, MD 112 [facility] 110 [place] [address] PCP - General Internal Medicine 10/06/23 Jacob Sharp [address] [place] [phone] Referring 04/30/[address] [place] [phone] Registered Dietitian Nutrition 06/24/[address] [place], [place] [phone] Registered Dietitian Nutrition 08/27/23 Yuan Miller MD, PhD [address] [place], [place] [phone] Surgeon General Surgery 02/03/24 documented as of this encounter
--- OUTSIDE RECORDS SUMMARY | 2025-04-09 11:55 | XMS_ITS | Encounter Summary ---
Author Organization [facility] Address [address] [facility] [place] [address] Care Team Providers Care Community Planner Name Role Phone Shlomo Hu MD Primary Care Provider Thursday, Toya CAMPOSN Unavailable [phone] Shlomo Hu MD Unavailable [phone] Shante Kumar GRAPHOTYPE OPERATOR-EXTENSION PROFESSOR Unavailable Claribel Scott RN Unavailable Jess Marsh SECTION GANG Unavailable Esthela Tesfaye STEWARD/STEWARDESS RAILRO[employer] D[employer]ING CAR Unavailable Encounter Details Date Type Department Care Team (Late st Contact Info) Description 06/15/2024 Abstract [facility] [place] [facility] [address] [facility] 110 [place] [address] Shlomo Hu MD 112 [facility] 110 [place] [address] Social History Tobacco Use Types [...] Recorded Patient Health Questionnaire-2 Score 1 06/09/2024 [facility] [...] any time in the past 12 m 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 Not on file Not on file documented as of this encounter Plan of Treatment Upcoming Encounters Date Type Department Care Team (Late st Contact Info) Description 04/20/2025 3:00 PM EDT Office Visit [facility] [address] [place] [address] Sonny Rodriguez, DPM 3[address] [facility] [place] [address] 05/04/2025 2:50 PM EDT Office Visit [facility] [address] [place] [address] Sonny Rodriguez DPM 3006 [facility] [place] [address] documented as of this encounter Visit Diagnoses Not on filedocumented in this encounter Additional Health Concerns Assessment Noted Time PHQ-9 Depression Total Score: 18 024 9:42 AM EDT documented as of this encounter Care Teams Community Planner Relationship Specialty Start Date End Date Shlomo Hu MD [address] [place] [address] PCP - General Internal Medicine 02/15/23 Shlomo Hu MD [address] [place] [address] PCP - [place] 05/15/2407/14 Shante Kumar APRN-EXTENSION PROFESSOR [address] [place] [address] PCP - [employer] 07/15/24 ThursdayToya LPN [address] [place] [address] Licensed Practical Nurse Family Medicine 01/19/24 10/21/24 Claribel Scott, PIETRO [address] [place] [address] Licensed Practical Nurse Family Medicine 10/21/24 12/06/24 Jess Marsh, DUKE 112 [facility] [address] [place] [address] 12/06/24 Esthela Tesfaye, KIRA [address] [place] [address] Regulated Program Manager Family Medicine 02/03/25 documented as of this encounter
--- OUTSIDE RECORDS SUMMARY | 2025-04-09 11:55 | XMS_ITS | Encounter Summary ---
Author Organization [facility] Address [facility]5 [place] [address] Care Team Providers Care Loom Checker Name Role Phone Ruiz Sean Mona GALVEZ Primary Care Provider [phone] Jacob Sharp Unavailable Rasheeda Newton RD Unavailable [phone] Unavailable [phone] Fritz HENDERSON MD, Shlomo Momin Primary Care Provider [phone] Yuan Miller MD, PhD Unavailable [phone] Source Comments In the event this information is protected by the Federal Confidentiality of Alcohol and Drug AbusePatient Records regulations: The Federal rules restrict any use of the information to criminally investigate or prosecute any alcohol or drug abuse patient.[facility] Encounter Details Date Type Department Care Team (Late st Contact Info) Description 05/25/2013 Patient Msg Medical Records [address] [place] [address] Provider, Ccf RE: Request an Appointment Social [...] 10:00 AM EDT Hospital Encounter Admitting [address] [place] [phone] Yuan Miller MD, PhD [address] [place] [phone] Nausea and vomiting, unspecified vomiting type [R11.2], H/O bariatric surgery [Z98.84], Jejunostomy tube fell out [T85.528A] 04/10/2025 10:00 AM EDT - 04/10/2025 12:00 PM EDT Surgery Admitting [address] [place] [phone] Yuan Miller MD, PhD [address] [address] [phone] LAPAROSCOPIC JEJUNOSTOMY 04/19/2025 11:00 AM EDT [facility] [address] [place] [phone] Joann Loera APRN.DRENCHER [address] [place] [phone] Cognitive movement issues 04/21/2025 8:30 AM EDT [facility] Nutrition Therapy [address] [address] Tiffany Banks, RD [address] [place] [phone] f/u TF forula tolerance and hydration 05/18/2025 9:00 AM EDT [facility] General Surgery [address] [place] [phone] Michael Mora PA-C 9500 [place] [address] f/u with michael mora in 2 wks 05/29/2025 9:00 AM EDT [facility] Gastroenterology [address] [address] Johanna Martinez MD [facility] [address] [address] 3 month follow up 06/28/2025 10:00 AM EDT [facility] Neurology Pain [address] [place], [place] [phone] [place] [address] [place], [place] [phone] Follow up for pain Scheduled Procedures Name [...] documented as of this encounter Care Teams Loom Checker Relationship Specialty [place] [address] [place] [phone] PCP - General Family Medicine 07/09/12 10/05/23 Shlomo Hu II, MD [address] [address] PCP - General Internal Medicine 10/06/23 Jacob Sharp [address] [place] [address] Referring 04/30/[address] [place] [address] Registered Dietitian Nutrition 06/24/[address] [facility] [place] [address] Registered Dietitian Nutrition 08/27/23 Yuan Miller [place], PhD [address] [place], [place] [phone] Surgeon General Surgery 02/03/24 documented as of this encounter
--- OUTSIDE RECORDS SUMMARY | 2025-04-09 11:55 | XMS_ITS | Encounter Summary ---
Author Organization [facility] Address [address] [facility] [place] [address] Care Team Providers Care Pbx Inspector Name Role Phone Shlomo Hu MD Primary Care Provider [phone] Thursday, Toya CAMPOSN Unavailable [phone] Shlomo Hu MD Unavailable [phone] Shante Kumar MOBILE PET GROOMER-FINISHING DEPARTMENT SUPERVISOR Unavailable Claribel Scott RN Unavailable [phone] Jess Marsh OUTPATIENT CODING SPECIALIST Unavailable Esthela Tesfaye J2EE ANDROID DEVELOPER Unavailable Encounter Details Date Type Department Care Team (Late st Contact Info) Description 06/20/2024 Abstract [facility] [place] [facility] 112 [facility] 110 [place] [address] Shlomo Hu MD 112 [facility] 110 [place] [address] Social History Tobacco Use Types [...] Recorded Patient Health Questionnaire-2 Score 1 06/09/2024 [facility] of Occupat ional Health [...] any time in the past 12 m [facility], were you homeless or [...] 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 Not on file Not on file documented as of this encounter Plan of Treatment Upcoming Encounters Date Type Department Care Team (Late st Contact Info) Description 04/20/2025 3:00 PM EDT Office Visit [facility] [address] [place] [address] Sonny Rodriguez, DPM 3006 [facility] 5 [place] [address] 05/04/2025 2:50 PM EDT Office Visit [facility] [address] [place] [address] Sonny Rodriguez DPM 3006 [facility] 5 [place] [address] documented as of this encounter Visit Diagnoses Not on filedocumented in this encounter Additional Health Concerns Assessment Noted Time PHQ-9 Depression Total Score: 18 024 9:42 AM EDT documented as of this encounter Care Teams Pbx Inspector Relationship Specialty Start Date End Date Shlomo Hu MD [address] [place] [address] PCP - General Internal Medicine 02/15/23 Shlomo Hu MD [address] [place] [address] PCP - [place] [employer] 05/15/2407/14 Shante Kumar APRN-FINISHING DEPARTMENT SUPERVISOR [address] [place] [address] PCP - [place] [facility] 07/15/24 ThursdayToya LPN [address] [place] [address] Licensed Practical Nurse Family Medicine 01/19/24 10/21/24 Claribel Scott, PIETRO [address] [place] [address] Licensed Practical Nurse Family Medicine 10/21/24 12/06/24 Jess Marsh, DUKE 112 [facility] [address] [place] [address] 12/06/24 Esthela Tesfaye, KIRA [address] [place] [address] Human Resources Advisor Family Medicine 02/03/25 documented as of this encounter
--- OUTSIDE RECORDS SUMMARY | 2025-04-09 11:56 | XMS_ITS | Encounter Summary ---
Author Organization [facility] Address [address] [place] [address] Care Team Providers Care Steel Placer Name Role Phone Ruiz Sean Mona GALVEZ Primary Care Provider [phone] Jacob Sharp Unavailable Rasheeda Newton RD Unavailable [phone] Unavailable [phone] Fritz HENDERSON MD, Shlomo Momin Primary Care Provider [phone] Yuan Miller MD, PhD Unavailable [phone] Source Comments In the event this information is protected by the Federal Confidentiality of Alcohol and Drug AbusePatient Records regulations: The Federal rules restrict any use of the information to criminally investigate or prosecute any alcohol or drug abuse patient.[facility] Encounter Details Date Type Department Care Team (Late st Contact Info) Description 06/21/2023 Patient Msg Nutrition Therapy [address] [id number] Provider, Ccf Nutrition visit tomorrow Social History [...] risk 4 03/05/2023 Data from: https://www.neighborhoodatlas.medicine.[facility].edu/. Last address used for calculation [...] 04/10/2025 10:00 AM EDT Hospital Encounter Admitting [address] [place], [place] [address]constant[place] [address] Yuan Miller MD, PhD [address] [place], [place] [id number] Nausea and vomiting, unspecified vomiting type [R11.2], H/O bariatric surgery [Z98.84], Jejunostomy tube fell out [T85.528A] 04/10/2025 10:00 AM EDT - 04/10/2025 12:00 PM EDT Surgery Admitting [address] [place] [address] Yuan Miller MD, PhD [address] [id number] LAPAROSCOPIC JEJUNOSTOMY 04/19/2025 11:00 AM EDT [facility] Neurological Yazidism [address] [id number] Joann Loera APRN.CUSTOMER SALES DISTRIBUTOR 9500 [place] [address] Cognitive movement issues 04/21/2025 8:30 AM T [facility] Nutrition Therapy [address] [phone] Tiffany Banks, RD [address] [id number] f/u TF forula tolerance and hydration 05/18/2025 9:00 AM EDT [facility] General Surgery [address] [phone] Michael Mora PA-C 9500 [place] [address] f/u with michael mora in 2 wks 05/29/2025 9:00 AM T [facility] Gastroenterology [address] [phone] Johanna Martinez MD [facility] [address] [place], [place] [id number] 3 month follow up 06/28/2025 10:00 AM T [facility] Neurology Pain [address] [phone] [place] [address] [address] [id number] Follow up for pain Scheduled Procedures Name [...] documented as of this encounter Care Teams Steel Placer Relationship Specialty [place] [address] [place] [address] PCP - General Family Medicine 07/09/12 10/05/23 Shlomo Hu II, MD [address] [facility] 110 [place] [address] PCP - General Internal Medicine 10/06/23 Jacob Sharp [address] [place] [address] Referring 04/30/[address] [place] [address] Registered Dietitian Nutrition 06/24/[address]00 [place], [place] [phone] Registered Dietitian Nutrition 08/27/23 Yuan Miller MD, PhD 9500 [place] [address] Surgeon General Surgery 02/03/24 documented as of this encounter
--- OUTSIDE RECORDS SUMMARY | 2025-04-09 11:56 | XMS_ITS | Encounter Summary ---
Author Organization [facility] Address [address] [facility] [place] [address] Care Team Providers Care Motor Vehicle Field Representative Name Role Phone Shlomo Hu MD Primary Care Provider Jacob Sharp CRISIS INTERVENTION COUNSELOR Unavailable Thursday, Toya GUSSET EDGER Unavailable [phone] Shlomo Hu MD Unavailable [phone] Shante Kumar SHAG TRUCK DRIVER-ORTHO RN Unavailable Claribel Scott RN Unavailable Jess Marsh GUSSET EDGER Unavailable Esthela Tesfaye COACH DRIVER Unavailable Encounter Details Date Type Department Care Team (Late st Contact Info) Description 02/09/2024 Abstract [facility] [place] [facility] 112 [facility] 110 [place] [address] Shlomo Hu MD 112 [facility] 110 [place], [place] [phone] Social History Tobacco Use Types Packs/Day Years [...] week 03/01/2023 How often do you attend [facility] or congregation services? 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 Not on file Not on file documented as of this encounter Plan of Treatment Upcoming Encounters Date Type Department Care Team (Late st Contact Info) Description 04/20/2025 3:00 PM EDT Office Visit [facility] [address] [place] [address] Sonny Rodriguez, DPM [address] [address] 05/04/2025 2:50 PM EDT Office Visit [facility] [address] [place] [address] Sonny Rodriguez, DPM [address] [address] documented as of this encounter Visit Diagnoses Not on filedocumented in this encounter Additional Health Concerns Assessment Noted Time PHQ-9 Depression Total Score: 9 08/26/20 23 1:30 PM EST documented as of this encounter Care Teams Motor Vehicle Field Representative Relationship Specialty Start Date End Date Shlomo Hu MD [address] [facility] 110 [place] [address] PCP - General Internal Medicine 02/15/23 [place] [address] [place] [address] PCP - [place] [employer] 08/14/23 Shlomo Hu MD [address] [facility] 110 [place] [address] PCP - [place] [employer] 05/15/2407/14 Shante Kumar APRN-ORTHO RN [address] [place] [address] PCP - [place] [employer] 11Thursday, DUKE Pittman [address] [place] [address] Licensed Practical Nurse Family Medicine 01/19/24 10/21/24 Claribel Scott, RN [address] [place] [address] Licensed Practical Nurse Family Medicine 10/21/24 12/06/24 Jess Marsh LPN [address] [place] [address] 12/06/24 Esthela Tesfaye, KIRA 14[address] [place] [address] Building Supervisor Family Medicine 02/03/25 documented as of this encounter
--- OUTSIDE RECORDS SUMMARY | 2025-04-09 11:56 | XMS_ITS | Encounter Summary ---
Author Organization [facility] Address [address] [place] [address] Care Team Providers Care Work Order Detailer Name Role Phone Joseph Sean Mona GALVEZ Primary Care Provider Jacob Sharp Unavailable Rasheeda Newton RD Unavailable [phone] Unavailable [phone] Fritz HENDERSON MD, Shlomo Momin Primary Care Provider [phone] Yuan Miller MD, PhD Unavailable [phone] Source Comments In the event this information is protected by the Federal Confidentiality of Alcohol and Drug AbusePatient Records regulations: The Federal rules restrict any use of the information to criminally investigate or prosecute any alcohol or drug abuse patient.[facility] Encounter Details Date Type Department Care Team (Late st Contact Info) Description 08/19/2023 Patient Msg Gastroenterology [address] [id number] Provider, Ccf Requested paperwork Social History Tobacco [...] hospital.edu/. Last address used for calculation [address] 03/05/2023 Comments No Sex and [...] 10:00 AM EDT Hospital Encounter Admitting [address] [place] [address] Yuan Miller MD, PhD [address] [place], [place] [phone] Nausea and vomiting, unspecified vomiting type [R11.2], H/O bariatric surgery [Z98.84], Jejunostomy tube fell out [T85.528A] 04/10/2025 10:00 AM EDT - 04/10/2025 12:00 PM EDT Surgery Admitting 9500 [place] [address] Yuan Miller MD, PhD [address] [phone] LAPAROSCOPIC JEJUNOSTOMY 04/19/2025 11:00 AM EDT [facility] Neurological Voodoo [address] [phone] Joann Loera APRN.DIETARY AIDE [address] [phone] Cognitive movement issues 04/21/2025 8:30 AM EDT [facility] Nutrition Therapy [address] [phone] Tiffany Banks, RD 9500 [place] [address] f/u TF forula tolerance and hydration 05/18/2025 9:00 AM EDT [facility] General Surgery [address] [phone] Michael Mora PA-C 9500 [place] [address] f/u with michael mora in 2 wks 05/29/2025 9:00 AM T [facility] Gastroenterology [address] [phone] Johanna Martinez MD [facility] [address] [place], [place] [phone] 3 month follow up 06/28/2025 10:00 AM T [facility] Neurology Pain [address] [phone] [place] [address] [address] [id number] Follow up for pain Scheduled Procedures Name [...] as of this encounter Care Teams Work Order Detailer Relationship Specialty [place] [address] [place] [address] PCP - General Family Medicine 07/09/12 10/05/23 Shlomo Hu II, MD [address] [facility] 110 [place] [address] PCP - General Internal Medicine 10/06/23 Jacob Sharp [address] [place] [address] Referring 04/30/[address] [place] [address] Registered Dietitian Nutrition 06/24/[address] [place], [place] [phone] Registered Dietitian Nutrition 08/27/23 Yuan Miller MD, PhD [address] [phone] Surgeon General Surgery 02/03/24 documented as of this encounter
--- OUTSIDE RECORDS SUMMARY | 2025-04-09 11:56 | XMS_ITS | Encounter Summary ---
Author Organization [facility] Address [address] [facility] [place] [address] Care Team Providers Care Plastic Sewer Name Role Phone Shlomo Hu MD Primary Care Provider [phone] Jacob Sharp STUDIO COORDINATOR Unavailable Thursday, Toya GANG KNIFE FISH CHOPPER Unavailable [phone] Shlomo Hu MD Unavailable [phone] Shante Kumar INSTRUMENT AND ELECTRICAL TECHNICIAN-SEED BUYER Unavailable Claribel Scott RN Unavailable Jess Marsh GANG KNIFE FISH CHOPPER Unavailable Esthela Tesfaye OIL WELL GUN PERFORATOR OPERATOR Unavailable Encounter Details Date Type Department Care Team (Late st Contact Info) Description 02/01/2024 Orders Only [facility] [place] [facility] [address] [facility] 110 [place] [address] Yanci Aguilar PA [address] [facility] 110 [place] [address] Pulmonary nodules/lesions, multiple Social History Tobacco Use [...] do you attend chur or episcopal services? 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 Not on file Not on file documented as of this encounter Plan of Treatment Upcoming Encounters Date Type Department Care Team (Late st Contact Info) Description 04/20/2025 3:00 PM EDT Office Visit [facility] [address] [facility] 120 [place] [address] Sonny Rodriguez, DPM [address] [address] 05/04/2025 2:50 PM EDT Office Visit [facility] 112 [facility] 120 [place] [address] Sonny Rodriguez, DPM [address] [address] documented as of this encounter Visit Diagnoses Diagnosis Pulmonary nodules/lesions, multiple Other diseases of lung, not elsewhere classified documented in this encounter Additional Health Concerns Assessment Noted Time PHQ-9 Depression Total Score: 9 08/26/20 23 1:30 PM EST documented as of this encounter Care Teams Plastic Sewer Relationship Specialty Start Date End Date Shlomo Hu MD 112 [facility] 110 [place] [address] PCP - General Internal Medicine 02/15/23 [place] [address] [place] [address] PCP - [place] [employer] 08/14/23 Shlomo uH MD 112 [facility] 110 [place] [address] PCP - [place] [employer] 05/15/2407/14 Shante Kumar APRN-SEED BUYER 112 [facility] 160 [place] [address] PCP - [place] [employer] 07/15/24, DUKE Pittman [address] [place] [address] Licensed Practical Nurse Family Medicine 01/19/24 10/21/24 Claribel Scott, RN [address] [place] [address] Licensed Practical Nurse Family Medicine 10/21/24 12/06/24 Jess Marsh LPN [address] [place] [address] 12/06/24 Esthela Tesfaye, KIRA 1479 [place] [address] Turf Manager Family Medicine 02/03/25 documented as of this encounter
--- OUTSIDE RECORDS SUMMARY | 2025-04-09 11:56 | XMS_ITS | Encounter Summary ---
Author Organization [facility] Address [facility] [place] [address] Care Team Providers Care Senior Devops Engineer Name Role Phone Jacob Sharp Unavailable Rasheeda Newton RD Unavailable [phone] Unavailable [phone] Fritz HENDERSON MD, Shlomo B Primary Care Provider [phone] Yuan Miller MD, PhD Unavailable [phone] Source Comments In the event this information is protected by the Federal Confidentiality of Alcohol and Drug AbusePatient Records regulations: The Federal rules restrict any use of the information to criminally investigate or prosecute any alcohol or drug abuse patient.[facility] Encounter Details Date Type Department Care Team (Late st Contact Info) Description 10/12/2024 Get Medical Advice Neurology Pain [address] [place] [address] [place] [address] [place] [address] Ketamine Social History Tobacco Use Types Packs/Day Years Used Date Smoking Tobacco: Never Smokeless Tobacco: Never Alcohol Use Standard Drinks/Week Comments Not Currently 0 (1 standard drink = 0.6 oz pur e alcohol) [facility] Utilities Answer Date Recorded In the [...] living in a fci (including now)? No 08/01/2024 Area Deprivation Index Answer Date Reagan rded National Score (1-100), lower number is lower ri sk 63 03/05/2023 State Score (1-10), lower number is lower risk 4 03/05/2023 Data from: https://www.neighborhoodatlas.medicine.[facility]/. Last address used for calculation [...] 10:00 AM EDT Hospital Encounter Admitting [address] [id number] Yuan Miller MD, PhD [address] [id number] Nausea and vomiting, unspecified vomiting type [R11.2], H/O bariatric surgery [Z98.84], Jejunostomy tube fell out [T85.528A] 04/10/2025 10:00 AM EDT - 04/10/2025 12:00 PM EDT Surgery Admitting [address] [id number] Yuan Miller MD, PhD [address] [id number] LAPAROSCOPIC JEJUNOSTOMY 04/19/2025 11:00 AM EDT [facility] Neurological Christian [address] [place] [address] Joann Loera, [employer].BRAKE SHOE REBUILDER 9500 [place] [address] Cognitive movement issues 04/21/2025 8:30 AM EDT [facility] Nutrition Therapy [address] [address] Tiffany Banks, RD 9500 [place] [address] f/u TF forula tolerance and hydration 05/18/2025 9:00 AM EDT [facility] General Surgery [address] [phone] Michael Mora PA-C [address] [phone] f/u with michael mora in 2 wks 05/29/2025 9:00 AM EDT [facility] Gastroenterology [address] [address] Johanna Martinez MD [facility] [address] [place], [place] [address] 3 month follow up 06/28/2025 10:00 AM EDT [facility] Neurology Pain [address] [phone] [place] [address] [address] [phone] Follow up for pain Scheduled Procedures Name Priority Associated Diagnoses Date/Ti me LAPAROSCOPIC JEJUNOSTOMY Nausea and vomiting, unspecified vomiting type H/O bariatric surgery Jejunostomy tube fell out 04/10/2025 10:00 AM EDT documented as of this encounter Visit Diagnoses Not on filedocumented in this encounter Care Teams Senior Devops Engineer Relationship Specialty Start Date End Date Shlomo Hu II, MD 112 [facility] 110 [place] [address] PCP - General Internal Medicine 10/06/23 Jacob Sharp [address] [address] [phone] Referring 04/30/[address] [place], [place] [phone] Registered Dietitian Nutrition 06/24/[address] [place], [place] [address] Registered Dietitian Nutrition 08/27/23 Yuan Miller MD, PhD [address] [place], [place] [phone] Surgeon General Surgery 02/03/24 documented as of this encounter
--- OUTSIDE RECORDS SUMMARY | 2025-04-09 11:56 | XMS_ITS | Encounter Summary ---
Author Organization [facility] Address [address] [facility] [place] [address] Care Team Providers Care Restorative Coordinator Name Role Phone Shlomo Hu MD Primary Care Provider [phone] Jacob Sharp HAT FORMER Unavailable Thursday, Toya FINISHING RANGE FEEDER Unavailable [phone] Shlomo Hu MD Unavailable [phone] Shante Kumar RETIREMENT SALES CONSULTANT-ASSISTANT COMMUNITY DIRECTOR Unavailable Claribel Scott RN Unavailable [phone] Jess Marsh FINISHING RANGE FEEDER Unavailable Esthela Tesfaye LEAN SIX SIGMA BLACK BELT Unavailable [phone] Encounter Details Date Type Department Care Team (Late st Contact Info) Description 02/16/2024 Abstract [facility] [place] [facility] 112 [facility] 110 [place] [address] Shlomo Hu MD 112 [facility] 110 [place], [place] [address] Social History Tobacco Use Types Packs/Day Years [...] often do you attend [facility] or taoism services? 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 Not on file Not on file documented as of this encounter Plan of Treatment Upcoming Encounters Date Type Department Care Team (Late st Contact Info) Description 04/20/2025 3:00 PM EDT Office Visit [facility] [address] [place] [address] Sonny Rodriguez, DPM [address] [address] 05/04/2025 2:50 PM EDT Office Visit [facility] [address] [place] [address] Sonny Rodriguez, DPM [address] [address] documented as of this encounter Visit Diagnoses Not on filedocumented in this encounter Additional Health Concerns Assessment Noted Time PHQ-9 Depression Total Score: 9 08/26/20 23 1:30 PM EST documented as of this encounter Care Teams Restorative Coordinator Relationship Specialty Start Date End Date Shlomo Hu MD [address] [facility] 110 [place] [address] PCP - General Internal Medicine 02/15/23 [place] [address] [place] [address] PCP - [place] [employer] 08/14/23 Shlomo Hu MD [address] [facility] 110 [place] [address] PCP - [place] [employer] 05/15/2407/14 Shante Kumar APRN-ASSISTANT COMMUNITY DIRECTOR [address] [place] [address] PCP - [place] [employer] 11Thursday, DUKE Pittman [address] [place] [address] Licensed Practical Nurse Family Medicine 01/19/24 10/21/24 Claribel Scott, RN [address] [place] [address] Licensed Practical Nurse Family Medicine 10/21/24 12/06/24 Jess Marsh LPN [address] [place] [address] 12/06/24 Esthela Tesfaye, KIRA 1479 [place] [address] Extract Mixer Family Medicine 02/03/25 documented as of this encounter
--- OUTSIDE RECORDS SUMMARY | 2025-04-09 11:56 | XMS_ITS | Encounter Summary ---
Author Organization [facility] Address [address] [facility] [place] [address] Care Team Providers Care Class B Driver Name Role Phone Shlomo Hu MD Primary Care Provider [phone] Jacob Sharp LABORER DRIVER Unavailable Thursday, Toya CONTRACTS SPECIALIST Unavailable [phone] Shlomo Hu MD Unavailable [phone] Shante Kumar STOCK DRIVER-TURBINE ATTENDANT Unavailable Claribel Scott RN Unavailable Jess Marsh CONTRACTS SPECIALIST Unavailable Esthela Tesfaye FIBER ARTIST Unavailable Encounter Details Date Type Department Care Team (Late st Contact Info) Description 03/10/[address] [place] [facility] 112 [facility] 110 [place] [address] Shlomo Hu MD 112 [facility] 110 [place], [place] [id number] Social History Tobacco Use Types Packs/Day Years [...] week 03/01/2023 How often do you attend [facility] or spiritism services? 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 Not on file Not on file documented as of this encounter Plan of Treatment Upcoming Encounters Date Type Department Care Team (Late st Contact Info) Description 04/20/2025 3:00 PM EDT Office Visit [facility] [address] [place] [address] Sonny Rodriguez, DPM [address] [address] 05/04/2025 2:50 PM EDT Office Visit [facility] [address] [place] [address] Sonny Rodriguez, DPM [address] [address] documented as of this encounter Visit Diagnoses Not on filedocumented in this encounter Additional Health Concerns Assessment Noted Time PHQ-9 Depression Total Score: 9 08/26/20 23 1:30 PM EST documented as of this encounter Care Teams Class B Driver Relationship Specialty Start Date End Date Shlomo Hu MD [address] [facility] 110 [place] [address] PCP - General Internal Medicine 02/15/23 [place] [address] [place] [address] PCP - [place] [employer] 08/14/23 Shlomo Hu MD [address] [facility] 110 [place] [address] PCP - [place] [employer] 05/15/2407/14 Shante Kumar APRN-TURBINE ATTENDANT [address] [place] [address] PCP - [place] [employer] 11Thursday, DUKE Pittman [address] [place] [address] Licensed Practical Nurse Family Medicine 01/19/24 10/21/24 Claribel Scott, RN [address] [place] [address] Licensed Practical Nurse Family Medicine 10/21/24 12/06/24 Jess Marsh LPN [address] [place] [address] 12/06/24 Esthela Tesfaye, KIRA 1479 [place] [address] Radiation Therapy Technician Family Medicine 02/03/25 documented as of this encounter
--- OUTSIDE RECORDS SUMMARY | 2025-04-09 11:56 | XMS_ITS | Encounter Summary ---
Author Organization [facility] Address [address] [place] [address] Care Team Providers Care Testing Coordinator Name Role Phone Shlomo Hu MD Primary Care Provider [phone] Jacob Sharp CEMENT BOAT AND BARGE LOADER Unavailable Thursday, Toya INSPECTOR ASSEMBLIES AND INSTALLATIONS Unavailable [phone] Shlomo Hu MD Unavailable [phone] Shante Kumar TELESCOPE OPERATOR-INFANTRY OPERATIONS SPECIALIST Unavailable Claribel Scott RN Unavailable Jess Marsh INSPECTOR ASSEMBLIES AND INSTALLATIONS Unavailable Esthela Tesfaye ELECTRICAL TECH Unavailable [phone] Encounter Details Date Type Department Care [...] Recorded Patient Health Questionnaire-2 Score 6 08/26/2023 [facility] of Occupat ional Health [...] 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 Not on file Not on file documented as of this encounter Plan of Treatment Upcoming Encounters Date Type Department Care Team (Late st Contact Info) Description 04/20/2025 3:00 PM EDT Office Visit [facility] [address] [place] [address] Sonny Rodriguez, DPM [address] [place] [address] 05/04/2025 2:50 PM EDT Office Visit [facility] [address] [place] [address] Sonny Rodriguez DPM [address] [place] [address] documented as of this encounter Procedures Procedure [...] QTC Calculation(Bazett) : 434 ms Calculated P [place] : 52 degrees Calculated R [place] : 18 degrees Calculated T [place] : 12 degrees NORMAL SINUS RHYTHM NORMAL ECG Confirmed by MD SMITH HEBA ([id number]) on 01/12/2024 7:22:59 PM NAME : MELINA TAVERSA PID : [id number] : 1975 Gender : Female Race : ORD : [id number] Procedure Date : Jan 09 2024 11:44:22 Edit Date : Jan 12 2024 19:23:48 Diagnosis: NORMAL SINUS RHYTHM NORMAL ECG Confirmed by MD SMITH HEBA ([id number]) on 01/12/2024 7:22:59 PM Test Reason : Check QT Location : 163 : M63 M63-03 Overread By : MD SMITH HEBA Edited By : MD SMITH HEBA Referred By : , Acquired by : JLUIS TRUJILLO Procedure Note Radiology, RadiologistMD - 01/12/2024 Ventricular Rate : 62 BPM Atrial Rate : 62 BPM P-R Interval : 186 ms QRS Duration : 80 ms Q-T Interval : 428 ms QTC Calculation(Bazett) : 434 ms Calculated P [place] : 52 degrees Calculated R [place] : 18 degrees Calculated T [place] : 12 degrees NORMAL SINUS RHYTHM NORMAL ECG Confirmed by MD SMITH HEBA ([id number]) on 01/12/2024 7:22:59 PM NAME : MELINA TAVERAS PID : [id number] : 1975 Gender : Female Race : ORD : [id number] Procedure Date : Jan 09 2024 11:44:22 Edit Date : Jan 12 2024 19:23:48 Diagnosis: NORMAL SINUS RHYTHM NORMAL ECG Confirmed by MD SMITH HEBA ([id number]) on 01/12/2024 7:22:59 PM Test Reason : Check QT Location : 163 : [place] [address] Overread By : MD SMITH HEBA Edited By : MD SMITH HEBA Referred By : , Acquired by : JLUIS TRUJILLO us Generic External Data Provider ECG ORDERABLES F inal Result Performing Organization Address City/State/[facility] Co de Phone Number [facility] CC documented in this encounter Visit Diagnoses Not on filedocumented in this encounter Additional Health Concerns Assessment Noted Time PHQ-9 Depression Total Score: 9 08/26/20 23 1:30 PM EST documented as of this encounter Care Teams Testing Coordinator Relationship Specialty Start Date End Date Shlomo Hu MD [address] [place] [address] [address] PCP - General Internal Medicine 02/15/23 [place] [address] [place] [address] PCP - [place] [employer] 08/14/23 Shlomo Hu MD [address] [place] [address] [address] PCP - [place] [employer] 05/15/2407/14 Shante Kumar, TELESCOPE OPERATOR-INFANTRY OPERATIONS SPECIALIST [address] [place] [address] PCP - [place] [employer] 07/15/24 ThursdayToya LPN [address] [place] [address] Licensed Practical Nurse Family Medicine 01/19/24 10/21/24 Claribel Scott, RN [address] [place] [address] Licensed Practical Nurse Family Medicine 10/21/24 12/06/24 Jess Marsh LPN [address] [facility] 110 [place] [address] 12/06/24 Esthela Tesfaye, ELECTRICAL TECH [address] [place] [address] Hay Baler Family Medicine 02/03/25 documented as of this encounter
--- OUTSIDE RECORDS SUMMARY | 2025-04-09 11:56 | XMS_ITS | Encounter Summary ---
Author Organization [facility] Address [address] [place] [address] Care Team Providers Care Training Designer Name Role Phone Jacob Sharp Unavailable Rasheeda Newton RD Unavailable [phone] Unavailable [phone] Fritz HENDERSON MD, Shlomo Momin Primary Care Provider [phone] Yuan Miller MD, PhD Unavailable [phone] Source Comments In the event this information is protected by the Federal Confidentiality of Alcohol and Drug AbusePatient Records regulations: The Federal rules restrict any use of the information to criminally investigate or prosecute any alcohol or drug abuse patient.[facility] Reason for Visit * Reason Comments Patient Update Patient Question Encounter Details Date Type Department Care Team (Late st Contact Info) Description 10/10/2024 Telephone General Surgery [address] [place] [id number] Yuan Miller MD, PhD [address] [place] [address] Patient Update; Patient Question Social History Tobacco Use Types Packs/Day Years Used Date Smoking Tobacco: Never Smokeless Tobacco: Never Alcohol Use Standard Drinks/Week Comments Not Currently 0 (1 standard drink = 0.6 oz pur e alcohol) [facility] Utilities Answer Date Recorded In [...] is lower risk 4 03/05/2023 Data from: https://www.neighborhoodatlas.medicine.[facility]/. Last address used for calculation [address] [...] file Travel History Travel Start Travel End [place] 03/18/2025 03/26/2025 documented as of this encounter [...] 10:00 AM EDT Hospital Encounter Admitting 9500 [place] [address] Yuan Miller MD, PhD [address] [place] [id number] Nausea and vomiting, unspecified vomiting type [R11.2], H/O bariatric surgery [Z98.84], Jejunostomy tube fell out [T85.528A] 04/10/2025 10:00 AM EDT - 04/10/2025 12:00 PM EDT Surgery Admitting [address]00 [place] [address] Yuan Miller MD, PhD [address] [place] [id number] LAPAROSCOPIC JEJUNOSTOMY 04/19/2025 11:00 AM EDT [facility] Neurological Sikhism [address] [place] [address] Joann Loera APRN.FREIGHT DISPATCHER 9500 [place] [address] Cognitive movement issues 04/21/2025 8:30 AM EDT [facility] Nutrition Therapy [address] [address] Tiffany Banks, DIONNE [address]00 [place] [address] f/u TF forula tolerance and hydration 05/18/2025 9:00 AM EDT [facility] General Surgery 9[address] [place] [address] Michael Mora PA-C [address]00 [place] [address] f/u with michael mora in 2 wks 05/29/2025 9:00 AM EDT [facility] Gastroenterology [address] [place] [phone] Johanna Martinez MD [facility] [address] [address] 3 month follow up 06/28/2025 10:00 AM EDT [facility] Neurology Pain [address] [place] [id number] [place] [address] [place] [address] Follow up for pain Scheduled Procedures Name Priority Associated Diagnoses Date/Ti me LAPAROSCOPIC JEJUNOSTOMY Nausea and vomiting, unspecified vomiting type H/O bariatric surgery Jejunostomy tube fell out 04/10/2025 10:00 AM EDT documented as of this encounter Visit Diagnoses Not on filedocumented in this encounter Care Teams Training Designer Relationship Specialty Start Date End Date Shlomo Hu II, MD [address] [place] [address] 110 [place] [address] PCP - General Internal Medicine 10/06/23 Jacob Sharp [address] [place] [address] Referring 04/30/[address] [place] [address] Registered Dietitian Nutrition 06/24/[address] [place] [address] Registered Dietitian Nutrition 08/27/23 Yuan Miller MD, PhD [address] [place] [address] Surgeon General Surgery 02/03/24 documented as of this encounter
--- OUTSIDE RECORDS SUMMARY | 2025-04-09 11:56 | XMS_ITS | Encounter Summary ---
Author Organization [facility] Address [address] [place] [address] Care Team Providers Care Dynamics Ax Consultant Name Role Phone Jacob Sharp Unavailable Rasheeda Newton RD Unavailable [phone] Unavailable [phone] Fritz HENDERSON MD, Shloom Momin Primary Care Provider [phone] Yuan Miller MD, PhD Unavailable [phone] Source Comments In the event this information is protected by the Federal Confidentiality of Alcohol and Drug AbusePatient Records regulations: The Federal rules restrict any use of the information to criminally investigate or prosecute any alcohol or drug abuse patient.[facility] Encounter Details Date Type Department Care Team (Late st Contact Info) Description 07/27/2024 Patient Msg Neurology [address] [place], [place] [phone] Provider, Ccdenice Ketamine instructions Social History Tobacco Use Types Packs/Day Years Used Date Smoking Tobacco: Never Smokeless Tobacco: Never Alcohol Use Standard Drinks/Week Comments Not Currently 0 (1 standard drink = 0.6 oz pur e alcohol) [facility] Utilities Answer Date Recorded In the [...] 03/05/2023 Data from: https://www.neighborhoodatlas.medicine.[facility]/. Last address used for calculation [address] [...] 10:00 AM EDT Hospital Encounter Admitting [address]00 [place] [address] Yuan Miller MD, PhD [address] [place] [phone] Nausea and vomiting, unspecified vomiting type [R11.2], H/O bariatric surgery [Z98.84], Jejunostomy tube fell out [T85.528A] 04/10/2025 10:00 AM EDT - 04/10/2025 12:00 PM EDT Surgery Admitting [address]00 [place] [address] Yuan Miller MD, PhD [address] [place] [address] LAPAROSCOPIC JEJUNOSTOMY 04/19/2025 11:00 AM EDT [facility] Neurological Christianity 00 [place] [address] Joann Loera APRN.VAT HOUSE SUPERVISOR 9500 [place] [address] Cognitive movement issues 04/21/2025 8:30 AM EDT [facility] Nutrition Therapy [address] [address] Tiffany Banks, RD 9500 [place] [address] f/u TF forula tolerance and hydration 05/18/2025 9:00 AM EDT [facility] General Surgery [address] [place] [address] Michael Mora PA-C [address] [place] [phone] f/u with michael mora in 2 wks 05/29/2025 9:00 AM EDT [facility] Gastroenterology [address] [address] Johanna Martinez MD [facility] [address] [place], [place] [phone] 3 month follow up 06/28/2025 10:00 AM EDT [facility] Neurology Pain [address] [place] [address] Quique Wilma [address] [place], [place] [phone] Follow up for pain Scheduled Procedures Name [...] documented as of this encounter Care Teams Dynamics Ax Consultant Relationship Specialty Start Date End Date Shlomo Hu II, MD 112 [facility] 110 [place] [id number] PCP - General Internal Medicine 10/06/23 Jacob Sharp [address] [place] [id number] Referring 04/30/[address] [place], [place] [address] Registered Dietitian Nutrition 06/24/[address] [place] [address] Registered Dietitian Nutrition 08/27/23 Yuan Miller MD, PhD [address] [place] [address] Surgeon General Surgery 02/03/24 documented as of this encounter
--- OUTSIDE RECORDS SUMMARY | 2025-04-09 11:56 | XMS_ITS | Encounter Summary ---
Author Organization [facility] Address [address] [place] [address] Care Team Providers Care Community Outreach Director Name Role Phone Ruiz, Sean Mona GALVEZ Primary Care Provider [phone] Jacob Sharp Unavailable Rasheeda Newton RD Unavailable [phone] Unavailable [phone] Fritz HENDERSON MD, Shlomo Momin Primary Care Provider [phone] Yuan Miller MD, PhD Unavailable [phone] Source Comments In the event this information [...] Pre Anesthesia [address] [place] [address] [place] [phone] Provider, [facility] Pre Anesthesia Testing Appointment Social [...] 04/10/2025 10:00 AM EDT Hospital Encounter Admitting [address] [place] [address] Yuan Miller MD, PhD [address] [place] [address] Nausea and vomiting, unspecified vomiting type [R11.2], H/O bariatric surgery [Z98.84], Jejunostomy tube fell out [T85.528A] 04/10/2025 10:00 AM EDT - 04/10/2025 12:00 PM EDT Surgery Admitting [address]00 [place] [address] Yuan Miller MD, PhD [address] [place] [address] LAPAROSCOPIC JEJUNOSTOMY 04/19/2025 11:00 AM EDT [facility] Neurological Alevism [address] [place] [id number] Joann Loera APRN.SECURITY ADMINISTRATOR [address] [place] [phone] Cognitive movement issues 04/21/2025 8:30 AM EDT [facility] Nutrition Therapy [address] [place] [phone] Tiffany Banks, RD 9500 [place] [address] f/u TF forula tolerance and hydration 05/18/2025 9:00 AM EDT [facility] General Surgery [address] [place] [address] Michael Mora PA-C [address] [place] [phone] f/u with michael mora in 2 wks 05/29/2025 9:00 AM T [facility] Gastroenterology [address] [place] [phone] Johanna Martinez MD [facility] [address] [place], [place] [address] 3 month follow up 06/28/2025 10:00 AM EDT [facility] Neurology Pain [address] [place] [phone] [place] [address] [place] [phone] Follow up for pain Scheduled Procedures Name [...] of this encounter Care Teams Community Outreach Director Relationship Specialty [place] [address] [place] [address] PCP - General Family Medicine 07/09/12 10/05/23 Shlomo Hu II, MD [address] [place] [address] [place] [address] PCP - General Internal Medicine 10/06/23 Jacob Sharp [address] [place] [address] Referring 04/30/[address], [place] [address] Registered Dietitian Nutrition 06/24/[address] [place] [address] Registered Dietitian Nutrition 08/27/23 Yuan Miller MD, PhD [address] [place] [address] Surgeon General Surgery 02/03/24 documented as of this encounter
--- OUTSIDE RECORDS SUMMARY | 2025-04-09 11:56 | XMS_ITS | Encounter Summary ---
Author Organization [facility] Address [address] [place] [address] Care Team Providers Care Document Manager Name Role Phone Jacob Sharp Unavailable Rasheeda Newton RD Unavailable [phone] Unavailable [phone] Fritz HENDERSON MD, Shlomo B Primary Care Provider [phone] Yuan Miller MD, PhD Unavailable [phone] Source Comments In the event this information is protected by the Federal Confidentiality of Alcohol and Drug AbusePatient Records regulations: The Federal rules restrict any use of the information to criminally investigate or prosecute any alcohol or drug abuse patient.[facility] Encounter Details Date Type Department Care Team (Late st Contact Info) Description 09/08/2024 Patient Msg Pain Recovery [address] [place] [address] Lucia Concepcion PSYD [address] [place] [address] Movement SMA Social History Tobacco [...] living in a mcfp (including now)? No 08/01/2024 Area Deprivation Index Answer Date Reagan rded National Score (1-100), lower number is lower ri sk 63 03/05/2023 State Score (1-10), lower number is lower risk 4 03/05/2023 Data from: https://www.neighborhoodatlas.medicine.[facility]/. Last address used for [...] 10:00 AM EDT Hospital Encounter Admitting [address]00 [place] [address] Yuan Miller MD, PhD [address] [place] [phone] Nausea and vomiting, unspecified vomiting type [R11.2], H/O bariatric surgery [Z98.84], Jejunostomy tube fell out [T85.528A] 04/10/2025 10:00 AM EDT - 04/10/2025 12:00 PM EDT Surgery Admitting [address] [place] [phone] Yuan Miller MD, PhD [address] [place] [phone] LAPAROSCOPIC JEJUNOSTOMY 04/19/2025 11:00 AM EDT [facility] Neurological Spiritism [address] [place] [address] Joann Loera APRN.LUBE MAN [address] [place] [phone] Cognitive movement issues 04/21/2025 8:30 AM EDT [facility] Nutrition Therapy [address]48 [place] [address] Tiffany Banks, RD [address] [place] [phone] f/u TF forula tolerance and hydration 05/18/2025 9:00 AM EDT [facility] General Surgery 9300 [place] [address] Michael Mora PA-C [address] [place] [phone] f/u with michael mora in 2 wks 05/29/2025 9:00 AM EDT [facility] Gastroenterology [address] [address] Johanna Martinez MD [facility] [address] [place], [place] [address] 3 month follow up 06/28/2025 10:00 AM EDT [facility] Neurology Pain [address] [place] [phone] [place] [address] [place] [phone] Follow up for pain Scheduled Procedures Name Priority Associated Diagnoses Date/Ti me LAPAROSCOPIC JEJUNOSTOMY Nausea and vomiting, unspecified vomiting type H/O bariatric surgery Jejunostomy tube fell out 04/10/2025 10:00 AM EDT documented as of this encounter Visit Diagnoses Not on filedocumented in this encounter Care Teams Document Manager Relationship Specialty Start Date End Date Shlomo Hu II, MD 112 [facility] 110 [place] [address] PCP - General Internal Medicine 10/06/23 Jacob Sharp [address] [place] [phone] Referring 04/30/[address] [place] [phone] Registered Dietitian Nutrition 06/24/[address] [place], [place] [phone] Registered Dietitian Nutrition 08/27/23 Yuan Miller MD, PhD [address] [place], [place] [phone] Surgeon General Surgery 02/03/24 documented as of this encounter
--- OUTSIDE RECORDS SUMMARY | 2025-04-09 11:56 | XMS_ITS | Encounter Summary ---
Author Organization [facility] Address [facility] [place] [address] Care Team Providers Care Leasing Associate Name Role Phone Ruiz, Sean Mona GALVEZ Primary Care Provider Jacob Sharp Unavailable Rasheeda Newton RD Unavailable [phone] Unavailable [phone] Fritz HENDERSON MD, Shlomo B Primary Care Provider [phone] Yuan Miller MD, PhD Unavailable [phone] Source Comments In the event this information is protected by the Federal Confidentiality of Alcohol and Drug AbusePatient Records regulations: The Federal rules restrict any use of the information to criminally investigate or prosecute any alcohol or drug abuse patient.[facility] Encounter Details Date Type Department Care Team (Late st Contact Info) Description 07/16/2023 Get Medical Advice Gastroenterology [address] [id number] Nhi Salas APRN.[facility] 9500 [place] [address] Appointment set up Social History [...] 4 03/05/2023 Data from: https://www.neighborhoodatlas.medicine.[facility].edu/. Last address used for calculation 1744 [...] 10:00 AM EDT Hospital Encounter Admitting [address] [place], [place] [id number] Yuan Miller MD, PhD [address] [place] [address] Nausea and vomiting, unspecified vomiting type [R11.2], H/O bariatric surgery [Z98.84], Jejunostomy tube fell out [T85.528A] 04/10/2025 10:00 AM EDT - 04/10/2025 12:00 PM EDT Surgery Admitting 9500 [place] [address] Yuan Miller MD, PhD 9500 [place] [address] LAPAROSCOPIC JEJUNOSTOMY 04/19/2025 11:00 AM EDT [facility] Neurological Orthodox [address] [place] [address] [phone] Joann Loera APRN.SOFTWARE DEVELOPMENT PROJECT MANAGER 9500 [place] [address] Cognitive movement issues 04/21/2025 8:30 AM EDT [facility] Nutrition Therapy [address] [place] [address] [id number] Tiffany Banks, RD [address] [place] [address] [id number] f/u TF forula tolerance and hydration 05/18/2025 9:00 AM EDT [facility] General Surgery [address] [place] [address] [phone] Michael Mora PA-C 9500 [place] [address] f/u with michael mora in 2 wks 05/29/2025 9:00 AM EDT [facility] Gastroenterology [address] [place] [phone] Johanna Martinez MD [facility] [address] [place] [address] [id number] 3 month follow up 06/28/2025 10:00 AM EDT [facility] Neurology Pain [address] [place] [address] [place] [address] [place] [id number] Follow up for pain Scheduled Procedures Name [...] documented as of this encounter Care Teams Leasing Associate Relationship Specialty [place] [address] [place] [address] PCP - General Family Medicine 07/09/12 10/05/23 Shlomo Hu II, MD 112 [facility] 110 [place] [address] PCP - General Internal Medicine 10/06/23 Jacob Sharp [address] [place] [address] Referring 04/30/[address] [place] [address] Registered Dietitian Nutrition 06/24/[address] [place] [address] Registered Dietitian Nutrition 08/27/23 Yuan Miller MD, PhD 9500 [place] [address] Surgeon General Surgery 02/03/24 documented as of this encounter
--- OUTSIDE RECORDS SUMMARY | 2025-04-09 11:56 | XMS_ITS | Encounter Summary ---
Author Organization [facility] Address [address] [place] [address] Care Team Providers Care Sales Contractor Name Role Phone Jacob Sharp Unavailable Rasheeda Newton RD Unavailable [phone] Unavailable [phone] Fritz HENDERSON MD, Shlomo B Primary Care Provider [phone] Yuan Miller MD, PhD Unavailable [phone] Source Comments In the event this [...] 10/10/2024 Get Medical Advice General Surgery 9300 [place] [address] Michael Mora PA-C [address] [place] [address] Feeding tube replacement Social History Tobacco Use Types Packs/Day Years Used Date Smoking Tobacco: Never Smokeless Tobacco: Never Alcohol Use Standard Drinks/Week Comments Not Currently 0 (1 standard drink = 0.6 oz pur e alcohol) [facility] Utilities Answer Date Recorded In [...] any time in the past 12 m [facility], were you homeless or living in a assisted (including now)? No 08/01/2024 Area Deprivation Index Answer Date Reagan rded National Score (1-100), lower number is lower ri sk 63 03/05/2023 State Score (1-10), lower number is lower risk 4 03/05/2023 Data from: https://www.neighborhoodatlas.[facility]/. Last address used for calculation [address] [address] 03/05/2023 Comments No Sex [...] 10:00 AM EDT Hospital Encounter Admitting 9500 [place] [address] Yuan Miller MD, PhD [address] [place] [address] [id number] Nausea and vomiting, unspecified vomiting type [R11.2], H/O bariatric surgery [Z98.84], Jejunostomy tube fell out [T85.528A] 04/10/2025 10:00 AM EDT - 04/10/2025 12:00 PM EDT Surgery Admitting [address] [place] [address] [phone] Yuan Miller MD, PhD [address] [place] [id number] LAPAROSCOPIC JEJUNOSTOMY 04/19/2025 11:00 AM EDT [facility] Neurological Roman Catholic [address] [place] [address] Joann Loera APRN.SPECIAL CRIMES INVESTIGATOR [address] [place] [phone] Cognitive movement issues 04/21/2025 8:30 AM EDT [facility] Nutrition Therapy [address] [address] Tiffany Banks, RD [address] [place] [phone] f/u TF forula tolerance and hydration 05/18/2025 9:00 AM EDT [facility] General Surgery [address] [place] [address] Michael Mora PA-C 9500 [place] [address] f/u with michael mora in 2 wks 05/29/2025 9:00 AM EDT [facility] Gastroenterology [address] [place] [phone] Johanna Martinez MD [facility] [address] [address] [id number] 3 month follow up 06/28/2025 10:00 AM EDT [facility] Neurology Pain [address] [place] [phone] [place] [address] [place] [address] Follow up for pain Scheduled Procedures Name Priority Associated Diagnoses Date/Ti me LAPAROSCOPIC JEJUNOSTOMY Nausea and vomiting, unspecified vomiting type H/O bariatric surgery Jejunostomy tube fell out 04/10/2025 10:00 AM EDT documented as of this encounter Visit Diagnoses Not on filedocumented in this encounter Care Teams Sales Contractor Relationship Specialty Start Date End Date Shlomo Hu II, MD [address] [place] [address] 110 [place] [address] PCP - General Internal Medicine 10/06/23 Jacob Sharp [address] [place] [address] Referring 04/30/[address] [place] [phone] Registered Dietitian Nutrition 06/24/[address] [place], [place] [phone] Registered Dietitian Nutrition 08/27/23 Yuan Miller MD, PhD [facility] [place] [phone] Surgeon General Surgery 02/03/24 documented as of this encounter
--- OUTSIDE RECORDS SUMMARY | 2025-04-09 11:56 | XMS_ITS | Encounter Summary ---
Author Organization [facility] Address [address] [facility] [place] [address] Care Team Providers Care Horologist Apprentice Name Role Phone Shlomo Hu MD Primary Care Provider Jaocb Sharp FAMILY PRACTICE NURSE PRACTITIONER Unavailable [phone] Thursday, Toya QUALITY CONTROL SYSTEMS MANAGER Unavailable [phone] Shlomo Hu MD Unavailable [phone] Shante Kumar LATIN AMERICAN STUDIES DIRECTOR-LIBRARY CIRCULATION CLERK Unavailable Claribel Scott RN Unavailable Jess Marsh QUALITY CONTROL SYSTEMS MANAGER Unavailable Esthela Tesfaye CUPOLA OPERATOR INSULATION Unavailable Encounter Details Date Type Department Care Team (Late st Contact Info) Description 01/13/2024 Abstract [facility] [place] [facility] 112 [facility] 110 [place] [address] Shlomo Hu MD 112 [facility] [place] [facility] 110 [place], [place] [phone] Social History Tobacco Use Types Packs/Day Years [...] week 03/01/2023 How often do you attend [facility] or congregational services? 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 Not on file Not on file documented as of this encounter Plan of Treatment Upcoming Encounters Date Type Department Care Team (Late st Contact Info) Description 04/20/2025 3:00 PM EDT Office Visit [facility] [address] [place] [address] Sonny Rodriguez, DPM [address] [address] 05/04/2025 2:50 PM EDT Office Visit [facility] [address] [place] [address] Sonny Rodriguez, DPM [address] [address] documented as of this encounter Visit Diagnoses Not on filedocumented in this encounter Additional Health Concerns Assessment Noted Time PHQ-9 Depression Total Score: 9 08/26/20 23 1:30 PM EST documented as of this encounter Care Teams Horologist Apprentice Relationship Specialty Start Date End Date Shlomo Hu MD [address] [facility] 110 [place] [address] PCP - General Internal Medicine 02/15/23 [place] [address] [place] [address] PCP - [place] [employer] 08/14/23 Shlomo Hu MD [address] [facility] 110 [place] [address] PCP - [place] [employer] 05/15/2407/14 Shante Kumar APRN-LIBRARY CIRCULATION CLERK [address] [place] [address] PCP - [place] [employer] 11Thursday, DUKE Pittman [address] [place] [address] Licensed Practical Nurse Family Medicine 01/19/24 10/21/24 Claribel Scott, RN [address] [place] [address] Licensed Practical Nurse Family Medicine 10/21/24 12/06/24 Jess Marsh LPN [address] [place] [address] 12/06/24 Esthela Tesfaye, KIRA 1479 [place] [address] Cpa Tax Family Medicine 02/03/25 documented as of this encounter
--- OUTSIDE RECORDS SUMMARY | 2025-04-09 11:56 | XMS_ITS | Encounter Summary ---
Author Organization [facility] Address [address] [facility] [place] [address] Care Team Providers Care Trimmer Machine Operator Name Role Phone Shlomo Hu MD Primary Care Provider Jacob Sharp CLINICAL QUALITY ASSURANCE SPECIALIST Unavailable [phone] Thursday, Toya LYRIC WRITER Unavailable [phone] Shlomo Hu MD Unavailable [phone] Shante Kumar CATALOGUE ILLUSTRATOR-NEWSPAPER SUBSCRIPTION SOLICITOR Unavailable Claribel Scott RN Unavailable Jess Marsh LYRIC WRITER Unavailable Esthela Tesfaye WEB ARCHITECT Unavailable Encounter Details Date Type Department Care Team (Late st Contact Info) Description 02/01/2024 Abstract [facility] [place] [facility] 112 [facility] 110 [place] [address] Shlomo Hu MD 112 [facility] 110 [place], [place] [phone] Social History Tobacco Use Types Packs/Day Years [...] do you attend [facility] or restoration services? 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 Not on file Not on file documented as of this encounter Plan of Treatment Upcoming Encounters Date Type Department Care Team (Late st Contact Info) Description 04/20/2025 3:00 PM EDT Office Visit [facility] [address] [place] [address] Sonny Rodriguez, DPM [address] [address] 05/04/2025 2:50 PM EDT Office Visit [facility] [address] [place] [address] Sonny Rodriguez, DPM [address] [address] documented as of this encounter Visit Diagnoses Not on filedocumented in this encounter Additional Health Concerns Assessment Noted Time PHQ-9 Depression Total Score: 9 08/26/20 23 1:30 PM EST documented as of this encounter Care Teams Trimmer Machine Operator Relationship Specialty Start Date End Date Shlomo Hu MD [address] [facility] 110 [place] [address] PCP - General Internal Medicine 02/15/23 [place] [address] [place] [address] PCP - [place] [employer] 08/14/23 Shlomo Hu MD [address] [facility] 110 [place] [address] PCP - [place] Commercial 05/15/2407/14 Shante Kumar APRN-NEWSPAPER SUBSCRIPTION SOLICITOR [address] [place] [address] PCP - [place] Commercial 11Thursday, DUKE Pittman [address] [place] [address] Licensed Practical Nurse Family Medicine 01/19/24 10/21/24 Claribel Scott, RN [address] [place] [address] Licensed Practical Nurse Family Medicine 10/21/24 12/06/24 Jess Marsh LPN [address] [place] [address] 12/06/24 Esthela Tesfaye, KIRA 14[address] [place] [address] Cessation Systems Outreach Specialist Family Medicine 02/03/25 documented as of this encounter
--- OUTSIDE RECORDS SUMMARY | 2025-04-09 11:56 | XMS_ITS | Encounter Summary ---
Author Organization [facility] Address [facility] [place] [address] Care Team Providers Care Trimming Caser Name Role Phone Jacob Sharp Unavailable Rasheeda Newton RD Unavailable [phone] Unavailable [phone] Fritz HENDERSON MD, Shlomo B Primary Care Provider [phone] Yuan Miller MD, PhD Unavailable [phone] Source Comments In the event this information is protected by the Federal Confidentiality of Alcohol and Drug AbusePatient Records regulations: The Federal rules restrict any use of the information to criminally investigate or prosecute any alcohol or drug abuse patient.[facility] Encounter Details Date Type Department Care Team (Late st Contact Info) Description 11/15/2024 Abstract Transplant Center [address] [place] [phone] Main, Intestinal Trans Coord [facility] [place] [address] Social History Tobacco Use Types Packs/Day Years Used Date Smoking Tobacco: Never Smokeless Tobacco: Never Alcohol Use Standard Drinks/Week Comments Not Currently 0 (1 standard drink = 0.6 oz pur e alcohol) [facility] Utilities Answer Date Recorded [...] 02/16/2024 Housing Stability Vital Sign Answer Luis Imguel e Recorded In the last 12 months, [...] risk 4 03/05/2023 Data from: https://www.neighborhoodatlas.medicine.[facility]/. Last address used for calculation [address] [...] 10:00 AM EDT Hospital Encounter Admitting [address] [place] [address] [id number] Yuan Miller MD, PhD [address] [place] [phone] Nausea and vomiting, unspecified vomiting type [R11.2], H/O bariatric surgery [Z98.84], Jejunostomy tube fell out [T85.528A] 04/10/2025 10:00 AM EDT - 04/10/2025 12:00 PM EDT Surgery Admitting [address] [place] [address] [phone] Yuan Miller MD, PhD [facility] [place] [address] LAPAROSCOPIC JEJUNOSTOMY 04/19/2025 11:00 AM EDT [facility] Neurological Taoism [address] [place] [address] Joann Loera APRN.ELECTION JUDGE [address] [place] [phone] Cognitive movement issues 04/21/2025 8:30 AM EDT [facility] Nutrition Therapy [address] [address] Tiffany Banks, RD 9500 [place] [address] f/u TF forula tolerance and hydration 05/18/2025 9:00 AM EDT [facility] General Surgery 9300 [place] [address] Michael Mora PA-C [address]00 [place] [address] f/u with michael mora in 2 wks 05/29/2025 9:00 AM EDT [facility] Gastroenterology [address] [address] Johanna Martinez MD [facility] [address] [place], [place] [phone] 3 month follow up 06/28/2025 10:00 AM EDT [facility] Neurology Pain [address] [place] [phone] [place] [address] [place], [place] [phone] Follow up for pain Scheduled Procedures Name Priority Associated Diagnoses Date/Ti me LAPAROSCOPIC JEJUNOSTOMY Nausea and vomiting, unspecified vomiting type H/O bariatric surgery Jejunostomy tube fell out 04/10/2025 10:00 AM EDT documented as of this encounter Visit Diagnoses Not on filedocumented in this encounter Care Teams Trimming Caser Relationship Specialty Start Date End Date Shlomo Hu II, MD [address] [address] PCP - General Internal Medicine 10/06/23 Jacob Sharp [address] [place] [phone] Referring 04/30/[address] [place] [phone] Registered Dietitian Nutrition 06/24/[address] [place], [place] [address] Registered Dietitian Nutrition 08/27/23 Yuan Miller MD, PhD [address] [place] [phone] Surgeon General Surgery 02/03/24 documented as of this encounter
--- OUTSIDE RECORDS SUMMARY | 2025-04-09 11:56 | XMS_ITS | Encounter Summary ---
Author Organization [facility] Address [address] [place] [address] Care Team Providers Care Journeyman Electrician Name Role Phone Jacob Sharp Unavailable Rasheeda Newton RD Unavailable [phone] Unavailable [phone] Fritz HEND[place] MD, Shlomo B Primary Care Provider [phone] Yuan Miller MD, PhD Unavailable [phone] Source Comments In the event this information is protected by the Federal Confidentiality of Alcohol and Drug AbusePatient Records regulations: The Federal rules restrict any use of the information to criminally investigate or prosecute any alcohol or drug abuse patient.[facility] Encounter Details Date Type Department Care Team (Late st Contact Info) Description 10/04/2024 Get Medical Advice Rheumatology [address] [phone] [place] [address] [place] [address] Neuropathy Social History Tobacco Use Types Packs/Day Years Used Date Smoking Tobacco: Never Smokeless Tobacco: Never Alcohol Use Standard Drinks/Week Comments Not Currently 0 (1 standard drink = 0.6 oz pur e alcohol) [facility] Utilities Answer Date Recorded In the past [...] is lower risk 4 03/05/2023 Data from: https://www.neighborhoodatlas.[facility]/. Last address used for calculation [address] [...] Travel History Travel Start Travel End [place] 03/18/2025 03/26/2025 documented as of this [...] Author No 08/02/2024 3:06 PM Donna Olea, RN documented in this encounter Miscellaneous Notes * Telephone Encounter - Melina Estrada MD - 10/04/2024 8:26 PM EST Per Oncoli[employer] message 03/30/2024: I am glad we are [...] 04/10/2025 10:00 AM EDT Hospital Encounter Admitting [facility] [place] [address] Yuan Miller MD, PhD [facility] [place] [address] Nausea and vomiting, unspecified vomiting type [R11.2], H/O bariatric surgery [Z98.84], Jejunostomy tube fell out [T85.528A] 04/10/2025 10:00 AM EDT - 04/10/2025 12:00 PM EDT Surgery Admitting [facility] [place] [address] Yuan Miller MD, PhD [address] [place] [address] LAPAROSCOPIC JEJUNOSTOMY 04/19/2025 11:00 AM EDT [facility] Neurological Buddhism [address]300 [place] [address] Joann Loera APRN.EFFERVESCENT SALTS COMPOUNDER 9500 [place] [address] Cognitive movement issues 04/21/2025 8:30 AM EDT [facility] Nutrition Therapy [address] [address] Tiffany Banks, RD 9500 [place] [address] f/u TF forula tolerance and hydration 05/18/2025 9:00 AM EDT [facility] General Surgery [address] [place] [phone] Michael Mora PA-C [address]00 [place] [address] f/u with michael mora in 2 wks 05/29/2025 9:00 AM EDT [facility] Gastroenterology [address] [address] Johanna Martinez MD [facility] [address] [place] [phone] 3 month follow up 06/28/2025 10:00 AM EDT [facility] Neurology Pain [address] [place] [phone] [place] [address] [place] [address] Follow up for pain Scheduled Procedures Name Priority Associated Diagnoses Date/Ti me LAPAROSCOPIC JEJUNOSTOMY Nausea and vomiting, unspecified vomiting type H/O bariatric surgery Jejunostomy tube fell out 04/10/2025 10:00 AM EDT documented as of this encounter Visit Diagnoses Not on filedocumented in this encounter Care Teams Journeyman Electrician Relationship Specialty Start Date End Date Sholmo Hu II, MD 112 [facility] 110 [place] [address] PCP - General Internal Medicine 10/06/23 Jacob Sharp [address] [place] [address] Referring 04/30/[address] [address] Registered Dietitian Nutrition 06/24/[address] [place] [address] Registered Dietitian Nutrition 08/27/23 Yuan Miller MD, PhD 9500 [place] [address] Surgeon General Surgery 02/03/24 documented as of this encounter
--- OUTSIDE RECORDS SUMMARY | 2025-04-09 11:56 | XMS_ITS | Encounter Summary ---
Author Organization [facility] Address [address] [place] [address] Care Team Providers Care University Registrar Name Role Phone Jacob Sahrp Unavailable Rasheeda Newton RD Unavailable [phone] Unavailable [phone] Fritz HENDERSON MD, Shlomo Momin Primary Care Provider [phone] Yuan Miller MD, PhD Unavailable [phone] Source Comments In the event this information is protected by the Federal Confidentiality of Alcohol and Drug AbusePatient Records regulations: The Federal rules restrict any use of the information to criminally investigate or prosecute any alcohol or drug abuse patient.[facility] Encounter Details Date Type Department Care Team (Late st Contact Info) Description 09/22/2024 Patient Msg Gastroenterology [address] [id number] Provider, Ccf follow up information Social History Tobacco Use Types Packs/Day Years Used Date Smoking Tobacco: Never Smokeless Tobacco: Never Alcohol Use Standard Drinks/Week Comments Not Currently 0 (1 standard drink = 0.6 oz pur e alcohol) [facility] Utilities Answer Date Recorded In the past 12 months has th e electric, gas, oil, or water [employer] threatened to shut off services in your [...] living in a penitentiary (including now)? No 08/01/2024 Area Deprivation Index Answer Date Reagan rded National Score (1-100), lower number is lower ri sk 63 03/05/2023 State Score (1-10), lower number is lower risk 4 03/05/2023 Data from: https://www.neighborhoodatlas.medicine.[facility]/. Last address used for calculation [address] [...] 10:00 AM EDT Hospital Encounter Admitting 9500 [place] [address] Yuan Miller MD, PhD [address] [phone] Nausea and vomiting, unspecified vomiting type [R11.2], H/O bariatric surgery [Z98.84], Jejunostomy tube fell out [T85.528A] 04/10/2025 10:00 AM EDT - 04/10/2025 12:00 PM EDT Surgery Admitting [address] [id number] Yuan Miller MD, PhD [address] [id number] LAPAROSCOPIC JEJUNOSTOMY 04/19/2025 11:00 AM EDT [facility] [address] [place], [place] [phone] Joann Loera APRN.CUSTOMER EXPERIENCE MANAGER [address] [id number] Cognitive movement issues 04/21/2025 8:30 AM EDT [facility] Nutrition Therapy [address] [address] Tiffany Banks, RD 9500 [place] [address] f/u TF forula tolerance and hydration 05/18/2025 9:00 AM EDT [facility] General Surgery 9299 [place] [address] Michael Mora PA-C 9500 [place] [address] f/u with michael mora in 2 wks 05/29/2025 9:00 AM EDT [facility] Gastroenterology [address] [address] Johanna Martinez MD [facility] [address] [place] [address] 3 month follow up 06/28/2025 10:00 AM EDT [facility] Neurology Pain [address] [place] [address] [place] [address] [place], [place] [phone] Follow up for pain Scheduled Procedures Name Priority Associated Diagnoses Date/Ti me LAPAROSCOPIC JEJUNOSTOMY Nausea and vomiting, unspecified vomiting type H/O bariatric surgery Jejunostomy tube fell out 04/10/2025 10:00 AM EDT documented as of this encounter Visit Diagnoses Not on filedocumented in this encounter Care Teams University Registrar Relationship Specialty Start Date End Date Shlomo Hu II, MD 112 [facility] 110 [place] [address] PCP - General Internal Medicine 10/06/23 Jacob Sharp [address] [phone] Referring 04/30/[address] [phone] Registered Dietitian Nutrition 06/24/[address]00 [place] [address] Registered Dietitian Nutrition 08/27/23 Yuan Miller MD, PhD [address]00 [place] [address] Surgeon General Surgery 02/03/24 documented as of this encounter
--- OUTSIDE RECORDS SUMMARY | 2025-04-09 11:56 | XMS_ITS | Encounter Summary ---
Author Organization [facility] Address [address] [facility] [place] [address] Care Team Providers Care Vamp Marker Name Role Phone Shlomo Hu MD Primary Care Provider Jacob Sharp SUPERVISOR FACEPIECE LINE Unavailable Thursday, Toya WELDER APPRENTICE Unavailable [phone] Shlomo Hu MD Unavailable [phone] Shante Kumar MANAGER PART-DIFFERENTIAL REPAIRER Unavailable Claribel Scott RN Unavailable Jess Marsh WELDER APPRENTICE Unavailable Esthela Tesfaye AQUATICS COORDINATOR Unavailable Encounter Details Date Type Department Care Team (Late st Contact Info) Description 01/13/2024 Abstract [facility] [place] [facility] 112 [facility] 110 [place] [address] Shlomo Hu MD 112 [facility] 110 [place], [place] [phone] Social History Tobacco Use Types Packs/Day Years [...] week 03/01/2023 How often do you attend [facility] or pentecostalism services? 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 Not on file Not on file documented as of this encounter Plan of Treatment Upcoming Encounters Date Type Department Care Team (Late st Contact Info) Description 04/20/2025 3:00 PM EDT Office Visit [facility] [address] [place] [address] Sonny Rodriguez, DPM [address] [address] 05/04/2025 2:50 PM EDT Office Visit [facility] [address] [place] [address] Sonny Rodriguez, DPM [address] [address] documented as of this encounter Visit Diagnoses Not on filedocumented in this encounter Additional Health Concerns Assessment Noted Time PHQ-9 Depression Total Score: 9 08/26/20 23 1:30 PM EST documented as of this encounter Care Teams Vamp Marker Relationship Specialty Start Date End Date Shlomo Hu MD [address] [facility] 110 [place] [address] PCP - General Internal Medicine 02/15/23 [place] [address] [place] [address] PCP - [place] [employer] 08/14/23 Shlomo Hu MD [address] [facility] 110 [place] [address] PCP - [place] [employer] 05/15/2407/14 Shante Kumar APRN-DIFFERENTIAL REPAIRER [address] [place] [address] PCP - [place] [employer] 11Thursday, DUKE Pittman [address] [place] [address] Licensed Practical Nurse Family Medicine 01/19/24 10/21/24 Claribel Scott, RN [address] [place] [address] Licensed Practical Nurse Family Medicine 10/21/24 12/06/24 Jess Marsh LPN [address] [place] [address] 12/06/24 Esthela Tesfaye, KIRA 14[address] [place] [address] Supervisor Purification Family Medicine 02/03/25 documented as of this encounter
--- OUTSIDE RECORDS SUMMARY | 2025-04-09 11:56 | XMS_ITS | Encounter Summary ---
Author Organization [facility] Address [address] [place] [address] Care Team Providers Care Chemical Process Operator Name Role Phone Jacob Sharp Unavailable Rasheeda Newton RD Unavailable [phone] Unavailable [phone] Fritz HENDERSON MD, Shlomo Momin Primary Care Provider [phone] Yuan Miller MD, PhD Unavailable [phone] Source Comments In the event this information is protected by the Federal Confidentiality of Alcohol and Drug AbusePatient Records regulations: The Federal rules restrict any use of the information to criminally investigate or prosecute any alcohol or drug abuse patient.[facility] Encounter Details Date Type Department Care Team (Late st Contact Info) Description 07/25/2024 Patient Msg General Surgery [address] [place] [address] Yuan Miller MD, PhD [address] [place] [address] CT Results Social History Tobacco [...] lower risk 4 03/05/2023 Data from: https://www.neighborhoodatlas.medicine.[facility]/. Last address used for calculation [address] 270 03/05/2023 Comments No Sex and [...] Author No 07/10/2024 3:08 PM EDT Lubna Gay RN documented in this encounter Plan of Treatment Upcoming Encounters Date Type Department Care Team (Latest Contact Info) Description 04/10/2025 10:00 AM EDT Hospital Encounter Admitting 9500 [place] [address] Yuan Miller MD, PhD [address] [phone] Nausea and vomiting, unspecified vomiting type [R11.2], H/O bariatric surgery [Z98.84], Jejunostomy tube fell out [T85.528A] 04/10/2025 10:00 AM EDT - 04/10/2025 12:00 PM EDT Surgery Admitting [address] [phone] Yuan Miller MD, PhD [address] [phone] LAPAROSCOPIC JEJUNOSTOMY 04/19/2025 11:00 AM EDT [facility]rological [facility] [address] [phone] Joann Loera APRN.RN IMAGING [address] [id number] Cognitive movement issues 04/21/2025 8:30 AM EDT [facility] Nutrition Therapy [address] [address] Tiffany Banks, RD 9500 [place] [address] f/u TF forula tolerance and hydration 05/18/2025 9:00 AM EDT [facility] General Surgery [address] [place] [address] Michael Mora PA-C 9500 [place] [address] f/u with michael mora in 2 wks 05/29/2025 9:00 AM EDT [facility] Gastroenterology [address] [phone] Johanna Martinez MD [facility] [address] [id number] 3 month follow up 06/28/2025 10:00 AM EDT [facility] Neurology Pain [address] [place], [place] [phone] [place] [address] [place], [place] [phone] Follow up for pain Scheduled Procedures Name [...] documented as of this encounter Care Teams Chemical Process Operator Relationship Specialty Start Date End Date Shlomo Hu II, MD 112 [facility] 110 [place] [address] PCP - General Internal Medicine 10/06/23 Jacob Sharp [address] [phone] Referring 04/30/[address] [phone] Registered Dietitian Nutrition 06/24/[address] 9500 [place] [address] Registered Dietitian Nutrition 08/27/23 Yuan Miller MD, PhD [address] [place], [place] [phone] Surgeon General Surgery 5/22/24 documented as of this encounter
--- OUTSIDE RECORDS SUMMARY | 2025-04-09 11:56 | XMS_ITS | Encounter Summary ---
Author Organization [facility] Address [id number] [address] [place] [address] Care Team Providers Care Pan Tank Worker Name Role Phone Skylar Echavarria JOSE-GOSPEL SINGER Primary Care Provider + Encounter Details Date Type Department Care Team (Late st Contact Info) Description 06/24/2021 Orders Only [facility] [address] [place] [address] Ref Prov, [place] [address] Social History Tobacco Use Types Packs/Day Years [...] (06/24/2021) us Not In System Ref Prov [place] IMAGING Final Res ult MANUALLY TRANSCRIBED RESULTS documented in this encounter Visit Diagnoses Not on filedocumented in this encounter Additional Health Concerns Infection Onset Date Last Indicated Resolved Time Respiratory Rule-Out 12/12/2021 12/12/2021 022 2:38 PM EDT documented as of this encounter Care Teams Pan Tank Worker Relationship Specialty Start Date End Date Skylar Echavarria, STEREO EQUIPMENT REPAIRER-GOSPEL SINGER [address] [place] [address] PCP - General Internal Medicine 11/18/23 documented as of this encounter
--- OUTSIDE RECORDS SUMMARY | 2025-04-09 11:56 | XMS_ITS | Encounter Summary ---
Author Organization [facility] Address [address] [facility] [place] [address] Care Team Providers Care Electrician Substation Name Role Phone Shlomo Hu MD Primary Care Provider Jacob Sharp MEDICAL DEVICE Unavailable [phone] Thursday, Toya MEDICAL RESEARCH TECH Unavailable [phone] Shlomo Hu MD Unavailable [phone] Shante Kumar ESTATE PLANNING PARALEGAL-FUR STYLIST Unavailable Claribel Scott RN Unavailable [phone] Jess Marsh MEDICAL RESEARCH TECH Unavailable Esthela Tesfaye ASSISTANT THERAPY AIDE Unavailable Encounter Details Date Type Department Care Team (Late st Contact Info) Description 03/07/2024 Abstract [facility] [place] [facility] 112 [facility] 110 [place] [address] Shlomo Hu MD 112 [facility] 110 [place], [place] [phone] Social History Tobacco Use Types Packs/Day Years [...] week 03/01/2023 How often do you attend [facility] or moravian services? 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 Not on file Not on file documented as of this encounter Plan of Treatment Upcoming Encounters Date Type Department Care Team (Late st Contact Info) Description 04/20/2025 3:00 PM EDT Office Visit [facility] [address] [place] [address] Sonny Rodriguez, DPM [address] [address] 05/04/2025 2:50 PM EDT Office Visit [facility] [address] [place] [address] Sonny Rodriguez, DPM [address] [address] documented as of this encounter Visit Diagnoses Not on filedocumented in this encounter Additional Health Concerns Assessment Noted Time PHQ-9 Depression Total Score: 9 08/26/20 23 1:30 PM EST documented as of this encounter Care Teams Electrician Substation Relationship Specialty Start Date End Date Shlomo Hu MD [address] [facility] 110 [place] [address] PCP - General Internal Medicine 02/15/23 [place] [address] [place] [address] PCP - [place] [employer] 08/14/23 Shlomo Hu MD [address] [facility] 110 [place] [address] PCP - [place] [employer] 05/15/2407/14 Shante Kumar APRN-FUR STYLIST [address] [place] [address] PCP - [place] [employer] 11Thursday, DUKE Pittman [address] [place] [address] Licensed Practical Nurse Family Medicine 01/19/24 10/21/24 Claribel Scott, RN [address] [place] [address] Licensed Practical Nurse Family Medicine 10/21/24 12/06/24 Jess Marsh LPN [address] [place] [address] 12/06/24 Esthela Tesfaye, KIRA 1479 [place] [address] Key Bed Installer Family Medicine 02/03/25 documented as of this encounter
--- OUTSIDE RECORDS SUMMARY | 2025-04-09 11:56 | XMS_ITS | Encounter Summary ---
Author Organization [facility] Address [address] [facility] [place] [address] Care Team Providers Care Hemmer Chainstitch Name Role Phone Shlomo Hu MD Primary Care Provider Jacob Sharp PERSONAL INJURY LITIGATION PARALEGAL Unavailable Thursday, Toya COMBAT SYSTEMS OFFICER Unavailable [phone] Shlomo Hu MD Unavailable [phone] Shante Kumar PNEUMATIC TOOL OPERATOR-ARMED GUARD Unavailable Claribel Scott RN Unavailable Jess Marsh COMBAT SYSTEMS OFFICER Unavailable Esthela Tesfaye FLOUR MIXER Unavailable [phone] Encounter Details Date Type Department Care Team (Late st Contact Info) Description 02/10/2024 Abstract [facility] [place] [facility] 112 [facility] 110 [place] [address] Shlomo Hu MD 112 [facility] 110 [place], [place] [phone] Social History Tobacco Use Types Packs/Day Years [...] week 03/01/2023 How often do you attend [facility] or yarsanism services? 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 Not on file Not on file documented as of this encounter Plan of Treatment Upcoming Encounters Date Type Department Care Team (Late st Contact Info) Description 04/20/2025 3:00 PM EDT Office Visit [facility] [address] [place] [address] Sonny Rodriguez, DPM [address] [address] 05/04/2025 2:50 PM EDT Office Visit [facility] [address] [place] [address] Sonny Rodriguez, DPM [address] [address] documented as of this encounter Visit Diagnoses Not on filedocumented in this encounter Additional Health Concerns Assessment Noted Time PHQ-9 Depression Total Score: 9 08/26/20 23 1:30 PM EST documented as of this encounter Care Teams Hemmer Chainstitch Relationship Specialty Start Date End Date Shlomo Hu MD [address] [facility] 110 [place] [address] PCP - General Internal Medicine 02/15/23 [place] [address] [place] [address] PCP - [place] [employer] 08/14/23 Shlomo Hu MD [address] [facility] 110 [place] [address] PCP - [place] [employer] 05/15/2407/14 Shante Kumar APRN-ARMED GUARD [address] [place] [address] PCP - [place] [employer] 11Thursday, DUKE Pittman [address] [place] [address] Licensed Practical Nurse Family Medicine 01/19/24 10/21/24 Claribel Scott, RN [address] [place] [address] Licensed Practical Nurse Family Medicine 10/21/24 12/06/24 Jess Marsh LPN [address] [place] [address] 12/06/24 Esthela Tesfaye, KIRA 1479 [place] [address] Director Of Sleep Family Medicine 02/03/25 documented as of this encounter
--- OUTSIDE RECORDS SUMMARY | 2025-04-09 11:56 | XMS_ITS | Encounter Summary ---
Author Organization [facility] Address [facility] [place] [address] Care Team Providers Care Sales Support Administrator Name Role Phone Jacob Sharp Unavailable Rasheeda Newton RD Unavailable [phone] Unavailable [phone] Fritz HENDERSON MD, Shlomo B Primary Care Provider [phone] Yuan Miller MD, PhD Unavailable [phone] Source Comments In the event this information is protected by the Federal Confidentiality of Alcohol and Drug AbusePatient Records regulations: The Federal rules restrict any use of the information to criminally investigate or prosecute any alcohol or drug abuse patient.[facility] Encounter Details Date Type Department Care Team (Late st Contact Info) Description 09/02/2024 Get Medical Advice Neurology Pain [address] [place] [address] [place] [address] [place] [address] Ketamine Social History Tobacco Use [...] living in a mcc (including now)? No 08/01/2024 Area Deprivation Index Answer Date Reagan rded National Score (1-100), lower number is lower ri sk 63 03/05/2023 State Score (1-10), lower number is lower risk 4 03/05/2023 Data from: https://www.neighborhoodatlas.medicine.[facility]/. Last address used for calculation [address] [...] - 09/02/2024 9:38 AM EST Lizy from [employer], which is a 3rd republican for patient's insurance is the ones that are needing the below information. ext [phone] and fax [phone] documented in this encounter Plan of Treatment Upcoming Encounters Date Type Department Care Team (Latest Contact Info) Description 04/10/2025 10:00 AM EDT Hospital Encounter Admitting [facility] [place] [address] Yuan Miller MD, PhD [address]00 [place] [address] Nausea and vomiting, unspecified vomiting type [R11.2], H/O bariatric surgery [Z98.84], Jejunostomy tube fell out [T85.528A] 04/10/2025 10:00 AM EDT - 04/10/2025 12:00 PM EDT Surgery Admitting [address] [place] [address] Yuan Miller MD, PhD [address] [place] [address] LAPAROSCOPIC JEJUNOSTOMY 04/19/2025 11:00 AM EDT [facility] Neurological Taoist [address] [place] [address] Joann Loera, JOSE.COMMERCIAL LINES UNDERWRITER 9500 [place] [address] Cognitive movement issues 04/21/2025 8:30 AM EDT [facility] Nutrition Therapy [address] [address] Tiffany Banks, RD [address] [place] [address] f/u TF forula tolerance and hydration 05/18/2025 9:00 AM EDT [facility] General Surgery [address] [phone] Michael Mora PA-C [address] [place] [address] f/u with michael mora in 2 wks 05/29/2025 9:00 AM EDT [facility] Gastroenterology [address] [place] [address] Johanna Martinez MD [facility] [address] [phone] 3 month follow up 06/28/2025 10:00 AM EDT [facility] Neurology Pain [address] [place] [address] [place] [address] [address] [phone] Follow up for pain Scheduled Procedures Name Priority Associated Diagnoses Date/Ti me LAPAROSCOPIC JEJUNOSTOMY Nausea and vomiting, unspecified vomiting type H/O bariatric surgery Jejunostomy tube fell out 04/10/2025 10:00 AM EDT documented as of this encounter Visit Diagnoses Not on filedocumented in this encounter Care Teams Sales Support Administrator Relationship Specialty Start Date End Date Shlomo Hu II, MD 112 [facility] 110 [place] [address] PCP - General Internal Medicine 10/06/23 Jacob Sharp [address] [place] [address] Referring 04/30/[address] [address] Registered Dietitian Nutrition 06/24/[address] [place], [place] [phone] Registered Dietitian Nutrition 08/27/23 Yuan Miller MD, PhD [address]00 [place] [address] Surgeon General Surgery 02/03/24 documented as of this encounter
--- OUTSIDE RECORDS SUMMARY | 2025-04-09 11:57 | XMS_ITS | Encounter Summary ---
Author Organization [facility] Address [address] [facility] [place] [address] Care Team Providers Care Pharmacy Account Director Name Role Phone Shlomo Hu MD Primary Care Provider [phone] Jacob Sharp VERIFYING SPECIALIST Unavailable Thursday, Toya POTATO CHIP SACKING MACHINE OPERATOR Unavailable [phone] Shlomo Hu MD Unavailable [phone] Shante Kumar VESSEL BUILDER-LICENSED CLUB MANAGER Unavailable Claribel Scott RN Unavailable [phone] Jess Marsh POTATO CHIP SACKING MACHINE OPERATOR Unavailable Esthela Tesfaye BROOM BUNDLER Unavailable Encounter Details Date Type Department Care Team (Late st Contact Info) Description 10/22/2023 Abstract [facility] [place] [facility] 112 [facility] 110 [place] [address] Shlomo Hu MD 112 [facility] 110 [place], [place] [address] Social History Tobacco Use Types Packs/Day Years [...] do you attend [facility] or mandaeism services? Patient declined 03/01/2023 Do [...] Recorded Patient Health Questionnaire-2 Score 6 08/26/2023 [facility] [place] of Occupat ional Health - Occupational Stress [...] Visit [facility] [address] [facility] [address] [place] [address] Sonny Rodriguez, DPM [address] [address] 05/04/2025 2:50 PM EDT Office Visit [facility] [address] [facility] [address] [place] [address] Sonny Rodriguez, DPM [address] [address] documented as of this encounter Visit Diagnoses Not on filedocumented in this encounter Additional Health Concerns Assessment Noted Time PHQ-9 Depression Total Score: 9 08/26/20 23 1:30 PM EST documented as of this encounter Care Teams Pharmacy Account Director Relationship Specialty Start Date End Date Shlomo Hu MD [address] [facility] 110 [place] [address] PCP - General Internal Medicine 02/15/23 [place] [address] [place] [address] PCP - [place] [employer] 08/14/23 Shlomo Hu MD [address] [facility] 110 [place] [address] PCP - [place] [employer] 05/15/2407/14 Shante Kumar APRN-LICENSED CLUB MANAGER [address] [place] [address] [place] [address] PCP - [place] [employer] 07/15/24 5 Juan CarlosToya hernandez LPN [address] [place] [address] Licensed Practical Nurse Family Medicine 01/19/24 10/21/24 Claribel Scott, RN [address] [place], [place] [address] Licensed Practical Nurse Family Medicine 10/21/24 12/06/24 Jess Marsh, DUKE 112 [facility] 110 [place] [address] 12/06/24 Esthela Tesfaye, BROOM BUNDLER [address] [place] [address] Metal Control Worker Family Medicine 02/03/25 documented as of this encounter
--- OUTSIDE RECORDS SUMMARY | 2025-04-09 11:57 | XMS_ITS | Encounter Summary ---
Author Organization [facility] Address [address] [place] [address] Care Team Providers Care Epoxy Fabrication Supervisor Name Role Phone Ruiz Sean Mona GALVEZ Primary Care Provider [phone] Jacob Sharp Unavailable Rasheeda Newton [address] Unavailable [phone] Unavailable [phone] Fritz HENDERSON MD, Shlomo B Primary Care Provider [phone] Yuan Miller MD, PhD Unavailable [phone] Source Comments In the event this information is protected by the Federal Confidentiality of Alcohol and Drug AbusePatient Records regulations: The Federal rules restrict any use of the information to criminally investigate or prosecute any alcohol or drug abuse patient.[facility] Encounter Details Date Type Department Care Team (Late st Contact Info) Description 07/05/2023 Get Medical Advice Gastroenterology [address] [address] Jorge L Saha PA-C [address] [address] Follow up appointment Social History Tobacco [...] slept in a correction (including now)? No 09/18/2022 Area Deprivation Index Answer Date Reagan rded National Score (1-100), lower number is lower ri sk 63 03/05/2023 State Score (1-10), lower number is lower risk 4 03/05/2023 Data from: https://www.neighborhoodatlas.medicine.[facility].edu/. Last address used for calculation [address] [...] 04/10/2025 10:00 AM EDT Hospital Encounter Admitting [address] [place], [place] [id number] Yuan Miller MD, PhD [address] [place] [address] Nausea and vomiting, unspecified vomiting type [R11.2], H/O bariatric surgery [Z98.84], Jejunostomy tube fell out [T85.528A] 04/10/2025 10:00 AM EDT - 04/10/2025 12:00 PM EDT Surgery Admitting 9500 [place] [address] Yuan Miller MD, PhD 9500 [place] [address] LAPAROSCOPIC JEJUNOSTOMY 04/19/2025 11:00 AM EDT [facility] Neurological Anabaptist [address] [id number] Joann Loera APRN.FIRE CONTROL OFFICER 9500 [place] [address] Cognitive movement issues 04/21/2025 8:30 AM EDT [facility] Nutrition Therapy [address] [place] [address] [phone] Tiffany Banks, RD [address] [id number] f/u TF forula tolerance and hydration 05/18/2025 9:00 AM EDT [facility] General Surgery [address] [phone] Michael Mora PA-C 9500 [place] [address] f/u with michael mora in 2 wks 05/29/2025 9:00 AM EDT [facility] Gastroenterology [address] [place] [phone] Johanna Martinez MD [facility] [address] [place] [address] [id number] 3 month follow up 06/28/2025 10:00 AM EDT [facility] Neurology Pain [address] [place] [address] [place] [address] [place] [id number] Follow up for pain Scheduled Procedures Name [...] documented as of this encounter Care Teams Epoxy Fabrication Supervisor Relationship Specialty [place] [address] [place] [address] PCP - General Family Medicine 07/09/12 10/05/23 Shlomo Hu II, MD 112 [facility] 110 [place] [address] PCP - General Internal Medicine 10/06/23 Jacob Sharp [address] [place] [address] Referring 04/30/[address] [place] [address] Registered Dietitian Nutrition 06/24/[address] 9300 [place] [address] Registered Dietitian Nutrition 08/27/23 Yuan Miller MD, PhD 9500 [place] [address] Surgeon General Surgery 02/03/24 documented as of this encounter
--- OUTSIDE RECORDS SUMMARY | 2025-04-09 11:57 | XMS_ITS | Encounter Summary ---
Author Organization [facility] Address [address] [facility] [place] [address] Care Team Providers Care Package Collector Name Role Phone Shlomo Hu MD Primary Care Provider [phone] Jacob Sharp FIRST CRUSHER Unavailable [phone] Thursday, Toya DAMAGE INSIDE ADJUSTER Unavailable [phone] Shlomo Hu MD Unavailable [phone] Shante Kumar BENDER HELPER-WAXING MACHINE OPERATOR Unavailable Claribel Scott RN Unavailable [phone] Jess Marsh DAMAGE INSIDE ADJUSTER Unavailable Esthela Tesfaye TOOL GRINDER OPERATOR SURFACE Unavailable Encounter Details Date Type Department Care Team (Late st Contact Info) Description 10/29/2023 Abstract [facility] [place] [facility] 112 [facility] 110 [place] [address] Shlomo Hu MD 112 [facility] 110 [place], [place] [address] Social History Tobacco Use Types Packs/Day Years [...] week 03/01/2023 How often do you attend [facility] or catholic services? Patient declined 03/01/2023 Do [...] Recorded Patient Health Questionnaire-2 Score 6 08/26/2023 [facility] [place] of Occupat ional Health - Occupational [...] Visit [facility] [address] [facility] 120 [place] [address] Sonny Rodriguez, DPM [address] [address] 05/04/2025 2:50 PM EDT Office Visit [facility] [address] [facility] [address] [place] [address] Sonny Rodriguez, DPM [address] [address] documented as of this encounter Visit Diagnoses Not on filedocumented in this encounter Additional Health Concerns Assessment Noted Time PHQ-9 Depression Total Score: 9 08/26/20 23 1:30 PM EST documented as of this encounter Care Teams Package Collector Relationship Specialty Start Date End Date Shlomo Hu MD [address] [facility] 110 [place] [address] PCP - General Internal Medicine 02/15/23 [place] [address] [place] [address] PCP - [place] Commercial 08/14/23 Shlomo Hu MD [address] [facility] 110 [place] [address] PCP - [place] Commercial 05/15/2407/14 Shante Kumar APRN-WAXING MACHINE OPERATOR [address] [place] [address] PCP - [place] Commercial 07/15/24 5 Juan CarlosToya hernandez LPN [address] [place] [address] Licensed Practical Nurse Family Medicine 01/19/24 10/21/24 Claribel Scott, RN [address] [place], [place] [address] Licensed Practical Nurse Family Medicine 10/21/24 12/06/24 Jess Marsh, DUKE 112 [facility] 110 [place] [address] 12/06/24 Esthela Tesfaye, TOOL GRINDER OPERATOR SURFACE [address] [place] [address] Facility Sales And Admin Family Medicine 02/03/25 documented as of this encounter
--- OUTSIDE RECORDS SUMMARY | 2025-04-09 11:57 | XMS_ITS | Encounter Summary ---
Author Organization [facility] Address [address] [facility] [place] [address] Care Team Providers Care Elevator Repairer Apprentice Name Role Phone Shlomo Hu MD Primary Care Provider Jacob Sharp BIOFUELS PRODUCT MANAGER Unavailable [phone] Thursday, Toya RVDA MASTER CERTIFIED RV TECHNICIAN Unavailable [phone] Shlomo Hu MD Unavailable [phone] Shante Kumar SUPERVISOR FINAL-ARABIC TEACHER Unavailable Claribel Scott RN Unavailable [phone] Jess Marsh RVDA MASTER CERTIFIED RV TECHNICIAN Unavailable Esthela Tesfaye PARTS WASHER Unavailable Encounter Details Date Type Department Care Team (Late st Contact Info) Description 10/09/[address] [place] [facility] 112 [facility] 110 [place] [address] Shlomo Hu MD 112 [facility] 110 [place], [place] [id number] Social History Tobacco Use Types Packs/Day Years [...] week 03/01/2023 How often do you attend [facility] or pentecostal services? Patient declined 03/01/2023 [...] Recorded Patient Health Questionnaire-2 Score 6 08/26/2023 [facility] [place] of Occupat ional Health - Occupational Stress [...] [facility] 120 [place] [address] Sonny Rodriguez, DPM [address] [address] 05/04/2025 2:50 PM EDT Office Visit [facility] [address] [facility] 120 [place] [address] Sonny Rodriguez, DPM [address] [address] documented as of this encounter Visit Diagnoses Not on filedocumented in this encounter Additional Health Concerns Assessment Noted Time PHQ-9 Depression Total Score: 9 08/26/20 23 1:30 PM EST documented as of this encounter Care Teams Elevator Repairer Apprentice Relationship Specialty Start Date End Date Shlomo Hu MD [address] [facility] 110 [place] [address] PCP - General Internal Medicine 02/15/23 [place] [address] [place] [address] PCP - [place] Commercial 08/14/23 Shlomo Hu MD [address] [facility] 110 [place] [address] PCP - [place] Commercial 05/15/2407/14 Shante Kumar APRN-ARABIC TEACHER [address] [place] [address] PCP - [place] Commercial 07/15/24 5 Juan CarlosToya hernandez LPN [address] [place] [address] Licensed Practical Nurse Family Medicine 01/19/24 10/21/24 Claribel Scott, RN [address] [place], [place] [address] Licensed Practical Nurse Family Medicine 10/21/24 12/06/24 Jess Marsh, DUKE 112 [facility] 110 [place] [address] 12/06/24 Esthela Tesfaye, PARTS WASHER [address] [place] [address] Snailer Family Medicine 02/03/25 documented as of this encounter
--- OUTSIDE RECORDS SUMMARY | 2025-04-09 11:57 | XMS_ITS | Encounter Summary ---
Author Organization [facility] Address [address] [facility] [place] [address] Care Team Providers Care Atmospheric Physics Professor Name Role Phone Shlomo Hu MD Primary Care Provider [phone] Jacob Sharp CLINICAL PARTNER Unavailable Thursday, Toya RETAIL MORTGAGE BANKER Unavailable [phone] Shlomo Hu MD Unavailable [phone] Shante Kumar NAVAL INSPECTOR-MUTUEL DEPARTMENT MANAGER Unavailable Claribel Scott RN Unavailable Jess Marsh RETAIL MORTGAGE BANKER Unavailable Esthela Tesfaye JAWBONE BREAKER Unavailable Encounter Details Date Type Department Care Team (Late st Contact Info) Description 10/22/2023 Abstract [facility] [place] [facility] 112 [facility] 110 [place] [address] Shlomo Hu MD 112 [facility] 110 [place], [place] [address] Social History Tobacco Use Types Packs/Day Years [...] week 03/01/2023 How often do you attend [facility] or episcopal services? Patient declined 03/01/2023 [...] Recorded Patient Health Questionnaire-2 Score 6 08/26/2023 [facility] [place] of Occupat ional Health - Occupational Stress [...] [facility] 120 [place] [address] Sonny Rodriguez, DPM [address] [address] 05/04/2025 2:50 PM EDT Office Visit [facility] [address] [facility] 120 [place] [address] Sonny Rodriguez, DPM [address] [address] documented as of this encounter Visit Diagnoses Not on filedocumented in this encounter Additional Health Concerns Assessment Noted Time PHQ-9 Depression Total Score: 9 08/26/20 23 1:30 PM EST documented as of this encounter Care Teams Atmospheric Physics Professor Relationship Specialty Start Date End Date Shlomo Hu MD [address] [facility] 110 [place] [address] PCP - General Internal Medicine 02/15/23 [place] [address] [place] [address] PCP - [place] Commercial 08/14/23 Shlomo Hu MD [address] [facility] 110 [place] [address] PCP - [place] Commercial 05/15/2407/14 Shante Kumar APRN-MUTUEL DEPARTMENT MANAGER [address] [place] [address] PCP - [place] [employer] 07/15/24 5 Juan CarlosToya hernandez LPN [address] [place] [address] Licensed Practical Nurse Family Medicine 01/19/24 10/21/24 Claribel Scott, RN [address] [place], [place] [phone] Licensed Practical Nurse Family Medicine 10/21/24 12/06/24 Jess Marsh, DUKE 112 [facility] 110 [place] [address] 12/06/24 Esthela Tesfaye, JAWBONE BREAKER [address] [place] [address] Factory Assembler Family Medicine 02/03/25 documented as of this encounter
--- OUTSIDE RECORDS SUMMARY | 2025-04-09 11:57 | XMS_ITS | Encounter Summary ---
Author Organization [facility] Address [address] [place] [address] Care Team Providers Care Equal Opportunity Specialist Name Role Phone Joseph Sean Mona GALVEZ Primary Care Provider [phone] Jacob Sharp Unavailable Rasheeda Newton RD Unavailable [phone] Unavailable [phone] Fritz HENDERSON MD, Shlomo Momin Primary Care Provider [phone] Yuan Miller MD, PhD Unavailable [phone] Source Comments In the event this information is protected by the Federal Confidentiality of Alcohol and Drug AbusePatient Records regulations: The Federal rules restrict any use of the information to criminally investigate or prosecute any alcohol or drug abuse patient.[facility] Encounter Details Date Type Department Care Team (Late st Contact Info) Description 07/07/2023 Patient Msg Gastroenterology [address] [phone] Provider, Ccf TPN Social History Tobacco Use [...] slept in a halfway (including now)? No 09/18/2022 Area Deprivation Index Answer Date Reagan rded National Score (1-100), lower number is lower ri sk 63 03/05/2023 State Score (1-10), lower number is lower risk 4 03/05/2023 Data from: https://www.neighborhoodatlas.medicine.[facility].edu/. Last address used for calculation [address] [...] 04/10/2025 10:00 AM EDT Hospital Encounter Admitting [address] [place] [address] Yuan [place], [place] [address] [place], [place] [phone] Nausea and vomiting, unspecified vomiting type [R11.2], H/O bariatric surgery [Z98.84], Jejunostomy tube fell out [T85.528A] 04/10/2025 10:00 AM EDT - 04/10/2025 12:00 PM EDT Surgery Admitting 9500 [place] [address] Yuan Miller MD, PhD 9500 [place] [address] LAPAROSCOPIC JEJUNOSTOMY 04/19/2025 11:00 AM EDT [facility] Neurological Scientologist 9300 [place] [address] Joann Loera APRN.OPERATOR BEARER SYSTEMS [address] [place] [address] [phone] Cognitive movement issues 04/21/2025 8:30 AM EDT [facility] Nutrition Therapy [address] [phone] Tiffany Banks, RD 9500 [place] [address] f/u TF forula tolerance and hydration 05/18/2025 9:00 AM EDT [facility] General Surgery [address] [phone] Michael Mora PA-C 9500 [place] [address] f/u with michael mora in 2 wks 05/29/2025 9:00 AM EDT [facility] Gastroenterology [address] [phone] Johanna Martinez MD [facility] [address] [place], [place] [address] 3 month follow up 06/28/2025 10:00 AM EDT [facility] Neurology Pain [address] [phone] [place] [address] [address] [phone] Follow up for pain Scheduled Procedures Name [...] documented as of this encounter Care Teams Equal Opportunity Specialist Relationship Specialty [place] [address] [place] [address] PCP - General Family Medicine 07/09/12 10/05/23 Shlomo Hu II, MD [address] [facility] 110 [place] [address] PCP - General Internal Medicine 10/06/23 Jacob Sharp [address] [place] [address] Referring 04/30/[address] [place] [address] Registered Dietitian Nutrition 06/24/[address]00 [place] [address] Registered Dietitian Nutrition 08/27/23 Yuan Miller MD, PhD 9500 [place] [address] Surgeon General Surgery 02/03/24 documented as of this encounter
--- OUTSIDE RECORDS SUMMARY | 2025-04-09 11:57 | XMS_ITS | Encounter Summary ---
Author Organization [facility] Address [address] [place] [address] Care Team Providers Care Rice Cleaning Machine Tender Name Role Phone Ruiz Sean Mona GALVEZ Primary Care Provider [phone] Jacob Sharp Unavailable Rasheeda Newton RD Unavailable [phone] Unavailable [phone] Fritz HENDERSON MD, Shlomo B Primary Care Provider [phone] Yuan Miller MD, PhD Unavailable [phone] Source Comments In the event this information is protected by the Federal Confidentiality of Alcohol and Drug AbusePatient Records regulations: The Federal rules restrict any use of the information to criminally investigate or prosecute any alcohol or drug abuse patient.[facility] Encounter Details Date Type Department Care Team (Late st Contact Info) Description 07/06/2023 Get Medical Advice Gastroenterology [address] [address] Jorge L Saha PA-C [address] [address] Referral for gut rehab clinic Social [...] in a group home (including now)? No 09/18/2022 Area Deprivation Index Answer Date Reagan rded National Score (1-100), lower number is lower ri sk 63 03/05/2023 State Score (1-10), lower number is lower risk 4 03/05/2023 Data from: https://www.neighborhoodatlas.medicine.[place].edu/. Last address used for calculation [address] [place] [address] 03/05/2023 Comments No Sex and Gender Information [...] 04/10/2025 10:00 AM EDT Hospital Encounter Admitting [address] [place] [address] Yuan Miller MD, PhD [address] [place] [address] Nausea and vomiting, unspecified vomiting type [R11.2], H/O bariatric surgery [Z98.84], Jejunostomy tube fell out [T85.528A] 04/10/2025 10:00 AM EDT - 04/10/2025 12:00 PM EDT Surgery Admitting 9500 [place] [address] Yuan Miller MD, PhD 9500 [place] [address] LAPAROSCOPIC JEJUNOSTOMY 04/19/2025 11:00 AM EDT [facility] Neurological Confucianist [address] [phone] Joann Loera, JOSE.DRY PRESS OPERATOR 9500 [place] [address] Cognitive movement issues 04/21/2025 8:30 AM EDT [facility] Nutrition Therapy [address] [phone] Tiffany Banks, RD [address] [place] [phone] f/u TF forula tolerance and hydration 05/18/2025 9:00 AM EDT [facility] General Surgery [address] [id number] Michael Mora PA-C 9500 [place] [address] f/u with michael mora in 2 wks 05/29/2025 9:00 AM EDT [facility] Gastroenterology [address] [phone] Johanna Martinez MD [facility] [address] [place], [place] [phone] 3 month follow up 06/28/2025 10:00 AM EDT [facility] Neurology Pain [address] 3832006 [place] [address] [place] [phone] Follow up for pain Scheduled Procedures Name Priority Associated Diagnoses Date/Ti me LAPAROSCOPIC JEJUNOSTOMY Nausea and vomiting, unspecified vomiting type H/O bariatric surgery Jejunostomy tube fell out 04/10/2025 10:00 AM EDT documented as of this encounter Visit Diagnoses Diagnosis Chronic pancreatitis, unspecified pancreatitis type (HCC)- Primary Nausea and vomiting, unspecified vomiting type H/O bariatric surgery Bariatric surgery status Jejunostomy tube fell out Mechanical complication of colostomy and enterostomy documented in this encounter Additional Health Concerns [...] documented as of this encounter Care Teams Rice Cleaning Machine Tender Relationship Specialty [place] [address] [place] [address] PCP - General Family Medicine 07/09/12 10/05/23 Shlomo Hu II, MD 112 [facility] 110 [place] [address] PCP - General Internal Medicine 10/06/23 Jacob Sharp [address] [place] [address] Referring 04/30/[address] [place] [address] Registered Dietitian Nutrition 06/24/[address]00 [place] [address] Registered Dietitian Nutrition 08/27/23 Yuan Miller MD, PhD 9500 [place] [address] Surgeon General Surgery 02/03/24 documented as of this encounter
--- OUTSIDE RECORDS SUMMARY | 2025-04-09 11:57 | XMS_ITS | Encounter Summary ---
Author Organization [facility] Address [address] [place] [address] Care Team Providers Care Civil Rights Investigator Name Role Phone Shlomo Hu MD Primary Care Provider Jacob Sharp MANNEQUIN REFINISHER Unavailable [phone] Thursday, Toya PHARMACY TECHNICIAN PROGRAM DIRECTOR Unavailable [phone] Shlomo Hu MD Unavailable [phone] Shante Kumar COMBER SETTER-HEDGE FUND ACCOUNTANT Unavailable Claribel Scott RN Unavailable Jess Marsh PHARMACY TECHNICIAN PROGRAM DIRECTOR Unavailable Esthela Tesfaye PAYROLL AND BENEFITS MANAGER Unavailable Encounter Details Date Type Department Care Team (Late st Contact Info) Description 10/16/2023 Abstract [facility] 112 [facility] 110 [place] [address] Shlomo Hu MD 112 [facility] 110 [place], [place] [address] Social History Tobacco Use Types Packs/Day Years [...] week 03/01/2023 How often do you attend [facility] or yarsani services? Patient declined 03/01/2023 Do [...] Recorded Patient Health Questionnaire-2 Score 6 08/26/2023 [facility] [place] of Occupat ional Health - Occupational Stress [...] Visit [facility] [address] [facility] [address] [place] [address] Sonny Rodriguez, DPM [address] [address] 05/04/2025 2:50 PM EDT Office Visit [facility] [address] [facility] [address] [place] [address] Sonny Rodriguez, DPM [address] [address] documented as of this encounter Visit Diagnoses Not on filedocumented in this encounter Additional Health Concerns Assessment Noted Time PHQ-9 Depression Total Score: 9 08/26/20 23 1:30 PM EST documented as of this encounter Care Teams Civil Rights Investigator Relationship Specialty Start Date End Date Shlomo Hu MD [address] [email or web address] 110 [place] [address] PCP - General Internal Medicine 02/15/23 [place] [address] [place] [address] PCP - Bend Commercial 08/14/23 Shlomo Hu MD [address] [email or web address] 110 [place] [address] PCP - Bend Commercial 05/15/2407/14 Shante Kumar APRN-HEDGE FUND ACCOUNTANT [address] [place] [address] PCP - Bend Commercial 07/15/24 5 Juan CarlosToya hernandez LPN [address] [place] [address] Licensed Practical Nurse Family Medicine 01/19/24 10/21/24 Claribel Scott, RN [address] [place], [place] [address] Licensed Practical Nurse Family Medicine 10/21/24 12/06/24 Jses Marsh, DUKE 112 [facility] 110 [place] [address] 12/06/24 Esthela Tesfaye, PAYROLL AND BENEFITS MANAGER [address] [place] [address] Stem Roller Family Medicine 02/03/25 documented as of this encounter
--- OUTSIDE RECORDS SUMMARY | 2025-04-09 11:57 | XMS_ITS | Encounter Summary ---
Author Organization [facility] Address [address] [facility] [place] [address] Care Team Providers Care Casing Worker Name Role Phone Shlomo Hu MD Primary Care Provider Jacob Sharp HOTBED LEVER OPERATOR Unavailable Thursday, Toya POST ACUTE CARE NURSE PRACTITIONER Unavailable [phone] Shlomo Hu MD Unavailable [phone] Shante Kumar METALLURGICAL LABORATORY ASSISTANT-TECHNICAL SOURCING RECRUITER Unavailable Claribel Scott RN Unavailable [phone] Jess Marsh POST ACUTE CARE NURSE PRACTITIONER Unavailable Esthela Tesfaye ORACLE SOFTWARE ENGINEER Unavailable Encounter Details Date Type Department Care Team (Late st Contact Info) Description 10/12/2023 Orders Only [facility] [address] [facility] 110 [place] [address] A, Unknown Practice [address] [place] [address] Social History Tobacco Use Types [...] often do you attend [facility] or latter day services? Patient declined 03/01/2023 Do you belong [...] Recorded Patient Health Questionnaire-2 Score 6 08/26/2023 [facility] of Occupat ional Health - [...] [facility] [address] [facility] 120 [place] [address] Sonny Rodriguez, DPM [address] [address] 05/04/2025 2:50 PM EDT Office Visit [facility] [address] [place] [place] [address] Sonny Rodriguez DPM [address] [address] documented as of this encounter Procedures Procedure [...] documented as of this encounter Care Teams Casing Worker Relationship Specialty Start Date End Date Shlomo Hu MD [address] [facility] 110 [place] [address] PCP - General Internal Medicine 02/15/23 [place] [address] [place] [address] PCP - [place]ef[place] Commercial 08/14/23 Shlomo Hu MD [address] [facility] 110 [place] [address] PCP - [place] Commercial 05/15/2407/14 Shante Kumar, METALLURGICAL LABORATORY ASSISTANT-TECHNICAL SOURCING RECRUITER [address] [place] [address] PCP - Denzel Commercial 07/15/24 5 ThursdayToya LPN [address] [place] [address] Licensed Practical Nurse Family Medicine 01/19/24 10/21/24 Claribel Scott, RN [address] [place] [address] Licensed Practical Nurse Family Medicine 10/21/24 12/06/24 Jess Marsh LPN [address] [facility] 110 [place] [address] 12/06/24 Esthela Tesfaye, KIRA [address] [place] [address] Retort Load Expediter Family Medicine 02/03/25 documented as of this encounter
--- OUTSIDE RECORDS SUMMARY | 2025-04-09 11:57 | XMS_ITS | Encounter Summary ---
Author Organization [facility] [employer] Address [facility] [id number] [address] [place] [place] [address] Care Team Providers Care Telephone Diaphragm Assembler Name Role Phone Skylar Echavarria JOSE-ROAD SIGN INSTALLER Primary Care Provider + Encounter Details Date Type Department Care Team (Late st Contact Info) Description 07/17/2021 Orders Only [facility] [address] [place] [address] External, Scanning Provider Social History Tobacco Use [...] Multiple labs (05/05/2021) us Scanning Provider External [place] IMAGING Final Result MANUALLY TRANSCRIBED RESULTS * Multiple labs (02/16/2021) us Scanning Provider External [place] IMAGING Final Result Performing Organization Address City/[facility] de Phone Number MANUALLY TRANSCRIBED RESULTS * Multiple labs (02/15/2021) us Scanning Provider External [place] IMAGING Final Result Performing Organization Address [facility] de Phone Number MANUALLY TRANSCRIBED RESULTS * Multiple labs (02/12/2021) us Scanning Provider External [place] IMAGING Final Result Performing Organization Address [facility] de Phone Number MANUALLY TRANSCRIBED RESULTS documented in this encounter Visit Diagnoses Not on filedocumented in this encounter Additional Health Concerns Infection Onset Date Last Indicated Resolved Time Respiratory Rule-Out 12/12/2021 12/12/2021 022 2:38 PM EDT documented as of this encounter Care Teams Telephone Diaphragm Assembler Relationship Specialty Start Date End Date Skylar Echavarria APRN-ROAD SIGN INSTALLER [address] [facility] [place] [address] PCP - General Internal Medicine 11/18/23 documented as of this encounter
--- OUTSIDE RECORDS SUMMARY | 2025-04-09 11:57 | XMS_ITS | Encounter Summary ---
Author Organization [facility] [employer] Address [id number] [address] [place] [address] Care Team Providers Care Wood Machine Carver Name Role Phone Skylar Echavarria JOSE-FORM TAMPER Primary Care Provider + Encounter Details Date Type Department Care Team (Late st Contact Info) Description 06/17/2021 Orders Only [facility] [address] [place] [address] External, Scanning Provider Social History Tobacco Use [...] Multiple labs (05/24/2021) us Scanning Provider External [place] IMAG[facility] Final Result MANUALLY TRANSCRIBED RESULTS documented in this encounter Visit Diagnoses Not on filedocumented in this encounter Additional Health Concerns Infection Onset Date Last Indicated Resolved Time Respiratory Rule-Out 12/12/2021 12/12/2021 022 2:38 PM EDT documented as of this encounter Care Teams Wood Machine Carver Relationship Specialty Start Date End Date Skylar Echavarria APRN-FORM TAMPER [address] [place] [address] PCP - General Internal Medicine 11/18/23 documented as of this encounter
--- OUTSIDE RECORDS SUMMARY | 2025-04-09 11:57 | XMS_ITS | Encounter Summary ---
Author Organization [facility] Address [address] [facility] [place] [address] Care Team Providers Care Fretted String Instrument Repairer Name Role Phone Shlomo Hu MD Primary Care Provider Jacob Sharp ASSISTANT PROFESSOR OF ART Unavailable Thursday, Toya WAREHOUSE ANALYST Unavailable [phone] Shlomo Hu MD Unavailable [phone] Shante Kumar BOTTOM PRECIPITATOR OPERATOR-CHAIR LIFT OPERATOR Unavailable Claribel Scott RN Unavailable Jess Marsh WAREHOUSE ANALYST Unavailable Esthela Tesfaye BRIDGE CLUB MANAGER Unavailable [phone] Encounter Details Date Type Department Care Team (Late st Contact Info) Description 10/13/2023 Abstract [facility] 112 [facility] 110 [place] [address] Shlomo Hu MD 112 [facility] 110 [place], [place] [address] Social History Tobacco Use Types Packs/Day Years [...] 03/01/2023 How often do you attend [facility] or restorationist services? Patient declined 03/01/2023 Do you belong [...] Recorded Patient Health Questionnaire-2 Score 6 08/26/2023 [facility] [place] of Occupat ional Health - Occupational Stress [...] Visit [facility] [address] [facility] 120 [place] [address] Sonny Rodriguez, DPM [address] [address] 05/04/2025 2:50 PM EDT Office Visit [facility] [address] [facility] 120 [place] [address] Sonny Rodriguez, DPM [address] [address] documented as of this encounter Visit Diagnoses Not on filedocumented in this encounter Additional Health Concerns Assessment Noted Time PHQ-9 Depression Total Score: 9 08/26/20 23 1:30 PM EST documented as of this encounter Care Teams Fretted String Instrument Repairer Relationship Specialty Start Date End Date Shlomo Hu MD [address] [facility] 110 [place] [address] PCP - General Internal Medicine 02/15/23 [place] [address] [place] [address] PCP - [place] Commercial 08/14/23 Shlomo Hu MD [address] [facility] 110 [place] [address] PCP - [place] Commercial 05/15/2407/14 Shante Kumar APRN-CHAIR LIFT OPERATOR [address] [place] [address] PCP - [place] Commercial 07/15/24 5 Juan CarlosToya hernandez LPN [address] [place] [address] Licensed Practical Nurse Family Medicine 01/19/24 10/21/24 Claribel Scott, RN [address] [place], [place] [address] Licensed Practical Nurse Family Medicine 10/21/24 12/06/24 Jess Marsh, DUKE 112 [facility] 110 [place] [address] 12/06/24 Esthela Tesfaye, BRIDGE CLUB MANAGER [address] [place] [address] Chief Lending Officer Family Medicine 02/03/25 documented as of this encounter
--- OUTSIDE RECORDS SUMMARY | 2025-04-09 11:57 | XMS_ITS | Encounter Summary ---
Author Organization [facility] Address [address] [place] [address] Care Team Providers Care Barber Shop Manager Name Role Phone Shlomo Hu MD Primary Care Provider Jacob Sharp KNIFE MACHINE OPERATOR Unavailable Thursday, Toya PROPERTY FIELD ADJUSTER Unavailable [phone] Shlomo Hu MD Unavailable [phone] Shante Kumar REGIONAL ENGAGEMENT CONSULTANT-PROCESS CONTROL PROGRAMMER Unavailable Claribel Scott RN Unavailable Jess Marsh PROPERTY FIELD ADJUSTER Unavailable Esthela Tesfaye OIL LABORATORY ANALYST Unavailable [phone] Encounter Details Date Type Department Care Team (Late st Contact Info) Description 10/28/2023 Abstract [facility] [place] [facility] 112 [facility] 110 [place] [address] Shlomo Hu MD 112 [facility] 110 [place], [place] [address] Social History Tobacco Use Types Packs/Day Years [...] you attend [facility] or episcopal services? Patient declined 03/01/2023 [...] Recorded Patient Health Questionnaire-2 Score 6 08/26/2023 [facility] [place] of Occupat ional Health - Occupational Stress [...] [address] [facility] 120 [place] [address] Sonny Rodriguez, DPM [address] [address] 05/04/2025 2:50 PM EDT Office Visit [facility] [address] [facility] [address] [place] [address] Sonny Rodriguez, DPM [address] [address] documented as of this encounter Visit Diagnoses Not on filedocumented in this encounter Additional Health Concerns Assessment Noted Time PHQ-9 Depression Total Score: 9 08/26/20 23 1:30 PM EST documented as of this encounter Care Teams Barber Shop Manager Relationship Specialty Start Date End Date Shlomo Hu MD [address] [facility] 110 [place] [address] PCP - General Internal Medicine 02/15/23 [place] [address] [place] [address] PCP - Index Commercial 08/14/23 Shlomo Hu MD [address] [facility] 110 [place] [address] PCP - Index Commercial 05/15/2407/14 Shante Kumar APRN-PROCESS CONTROL PROGRAMMER [address] [place] [address] PCP - Index Commercial 07/15/24 5 Juan CarlosToya hernandez LPN [address] [place] [address] Licensed Practical Nurse Family Medicine 01/19/24 10/21/24 Claribel Scott, RN [address] [place], [place] [address] Licensed Practical Nurse Family Medicine 10/21/24 12/06/24 Jess Marsh, DUKE 112 [facility] 110 [place] [address] 12/06/24 Esthela Tesfaye, OIL LABORATORY ANALYST [address] [place] [address] Invisible Braces Orthodontist Family Medicine 02/03/25 documented as of this encounter
--- OUTSIDE RECORDS SUMMARY | 2025-04-09 11:57 | XMS_ITS | Encounter Summary ---
Author Organization [facility] Address [facility] [place] [address] Care Team Providers Care Inside Finisher Name Role Phone Joseph Sean Mona GALVEZ Primary Care Provider [phone] Jacob Sharp Unavailable Rasheeda Newton [address] Unavailable [phone] Unavailable [phone] Fritz HENDERSON MD, Shlomo Momin Primary Care Provider [phone] Yuan Miller MD, PhD Unavailable [phone] Source Comments In the event this information is protected by the Federal Confidentiality of Alcohol and Drug AbusePatient Records regulations: The Federal rules restrict any use of the information to criminally investigate or prosecute any alcohol or drug abuse patient.[facility] Encounter Details Date Type Department Care Team (Late st Contact Info) Description 07/07/2023 Abstract Gastroenterology [address] [id number] Dietitian, Cgrt [address] [place] [address] Social History Tobacco Use Types [...] risk 4 03/05/2023 Data from: https://www.neighborhoodatlas.medicine.[facility].edu/. Last address used for calculation [...] 04/10/2025 10:00 AM EDT Hospital Encounter Admitting [address] [place] [address] Yuan Miller MD, PhD [address] [place], [place] [phone] Nausea and vomiting, unspecified vomiting type [R11.2], H/O bariatric surgery [Z98.84], Jejunostomy tube fell out [T85.528A] 04/10/2025 10:00 AM EDT - 04/10/2025 12:00 PM EDT Surgery Admitting [address]00 [place] [address] Yuan Miller MD, PhD [address] [phone] LAPAROSCOPIC JEJUNOSTOMY 04/19/2025 11:00 AM EDT [facility] Neurological Yazidism [address] [address] Joann Loera APRN.ROSS FURNACE OPERATOR [address] [id number] Cognitive movement issues 04/21/2025 8:30 AM EDT [facility] Nutrition Therapy [address] [phone] Tiffany Banks, RD [address] [address] f/u TF forula tolerance and hydration 05/18/2025 9:00 AM EDT [facility] General Surgery [address] [phone] Michael Mora PA-C [address] [address] f/u with michael mora in 2 wks 05/29/2025 9:00 AM T [facility] Gastroenterology [address] [phone] Johanna Martinez MD [facility] [address] [place], [place] [address] 3 month follow up 06/28/2025 10:00 AM T [facility] Neurology Pain [address] [address]798106 [place] [address] [address] [phone] Follow up for pain Scheduled Procedures Name [...] documented as of this encounter Care Teams Inside Finisher Relationship Specialty [place] [address] [place] [address] PCP - General Family Medicine 07/09/12 10/05/23 Shlomo Hu II, MD 112 [facility] [place] [facility] 110 [place] [address] PCP - General Internal Medicine 10/06/23 Jacob Sharp [address] [place] [address] Referring 04/30/[address] [address] Registered Dietitian Nutrition 06/24/[address] [place], [place] [address] Registered Dietitian Nutrition 08/27/23 Yuan Miller MD, PhD [address] [place] [address] Surgeon General Surgery 02/03/24 documented as of this encounter
--- OUTSIDE RECORDS SUMMARY | 2025-04-09 11:57 | XMS_ITS | Encounter Summary ---
Author Organization [facility] Address [address] [place] [address] Care Team Providers Care Automatic Splicing Machine Operator Name Role Phone Joseph Sean Mona GALVEZ Primary Care Provider [phone] Jacob Sharp Unavailable Rasheeda Newton RD Unavailable [phone] Unavailable [phone] Fritz HENDERSON MD, Shlomo B Primary Care Provider [phone] Yuan Miller MD, PhD Unavailable [phone] Source Comments In the event this information is protected by the Federal Confidentiality of Alcohol and Drug AbusePatient Records regulations: The Federal rules restrict any use of the information to criminally investigate or prosecute any alcohol or drug abuse patient.[facility] Encounter Details Date Type Department Care Team (Late st Contact Info) Description 06/29/2023 Patient Msg Hematology/Oncology [address] [place] [address] Lacey Youssef, FIELD CROP FARM WORKER.NURSES SUPERINTENDENT [address] [place] [address] Labs Social History Tobacco Use [...] slept in a fci (including now)? No 09/18/2022 Area Deprivation Index Answer Date Reagan rded National Score (1-100), lower number is lower ri sk 63 03/05/2023 State Score (1-10), lower number is lower risk 4 03/05/2023 Data from: https://www.neighborhoodatlas.medicine.[facility].edu/. Last address used for calculation [address] [place] [address] 03/05/2023 Comments No Sex and Gender Information [...] 10:00 AM EDT Hospital Encounter Admitting [address] [place] [address] Yuan Miller MD, PhD [address] [place] [address] Nausea and vomiting, unspecified vomiting type [R11.2], H/O bariatric surgery [Z98.84], Jejunostomy tube fell out [T85.528A] 04/10/2025 10:00 AM EDT - 04/10/2025 12:00 PM EDT Surgery Admitting [address] [place] [address] Yuan Miller MD, PhD [address] [place] [address] LAPAROSCOPIC JEJUNOSTOMY 04/19/2025 11:00 AM EDT [facility] Neurological Christian [address] [phone] Joann Loera APRN.NURSES SUPERINTENDENT [address] [place] [address] Cognitive movement issues 04/21/2025 8:30 AM EDT [facility] Nutrition Therapy [address] [phone] Tiffany Banks, RD [address] [phone] f/u TF forula tolerance and hydration 05/18/2025 9:00 AM EDT [facility] General Surgery [address] [phone] Michael Mora PA-C [address] [phone] f/u with michael mora in 2 wks 05/29/2025 9:00 AM EDT [facility] Gastroenterology [address] [phone] Johanna Martinez MD [facility] [address] [place], [place] [address] 3 month follow up 06/28/2025 10:00 AM EDT [facility] Neurology Pain [address] [phone] Wilma Lei, [address] [phone] Follow up for pain Scheduled Procedures Name [...] documented as of this encounter Care Teams Automatic Splicing Machine Operator Relationship Specialty [place] [address] [place] [address] PCP - General Family Medicine 07/09/12 10/05/23 Shlomo Hu II, MD 112 [facility] 110 [place] [address] PCP - General Internal Medicine 10/06/23 Jacob Sharp [address] [place] [address] Referring 04/30/[address], [place] [address] Registered Dietitian Nutrition 06/24/[address] [place] [address] Registered Dietitian Nutrition 08/27/23 Yuan Miller MD, PhD [address] [place] [address] Surgeon General Surgery 02/03/24 documented as of this encounter
--- OUTSIDE RECORDS SUMMARY | 2025-04-09 11:57 | XMS_ITS | Encounter Summary ---
Author Organization [facility] Address [address] [facility] [place] [address] Care Team Providers Care Payroll Assistant Name Role Phone Shlomo Hu MD Primary Care Provider [phone] Jacob Sharp ASSEMBLY MACHINE OFFBEARER Unavailable Thursday, Toya PHARMACY ASSOCIATE Unavailable [phone] Shlomo Hu MD Unavailable [phone] Shante Kumar CARD HAND-GATE CUTTER Unavailable Claribel Scott RN Unavailable Jess Marsh PHARMACY ASSOCIATE Unavailable Esthela Tesfaye BOARD MIXER TENDER Unavailable [phone] Encounter Details Date Type Department Care Team (Late st Contact Info) Description 09/22/2023 Orders Only [facility] [address] [facility] 110 [place] [address] A, Unknown Practice [address] [place] [address] Social History Tobacco Use Types [...] How often do you attend [facility] or lutheran services? Patient declined 03/01/2023 Do [...] [address] [place] [address] Sonny Rodriguez, DPM [address] [address] 05/04/2025 2:50 PM EDT Office Visit [facility] [address] [place] [address] Sonny Rodriguez DPM [address] [address] documented as of this encounter Procedures Procedure [...] documented as of this encounter Care Teams Payroll Assistant Relationship Specialty Start Date End Date Shlomo Hu MD [address] [facility] 110 [place] [address] PCP - General Internal Medicine 02/15/23 Jacob Sharp, FELICITA [address] [place] [address] PCP - Early Commercial 08/14/23 Shlomo Hu MD [address] [facility] 110 [place] [address] PCP - Early Commercial 05/15/2407/14 Shante Kumar APRN-GATE CUTTER [address] [place] [address] PCP - Denzel Commercial 07/15/24 ThursdayToya LPN [address] [place] [address] Licensed Practical Nurse Family Medicine 01/19/24 10/21/24 Claribel Scott, RN [address] [place] [address] Licensed Practical Nurse Family Medicine 10/21/24 12/06/24 Jess Marsh LPN [address] [facility] 110 [place] [address] 12/06/24 Esthela Tesfaye LSW [address] [place] [address] Jewel Hole Rough Opener Family Medicine 02/03/25 documented as of this encounter
--- OUTSIDE RECORDS SUMMARY | 2025-04-09 11:57 | XMS_ITS | Encounter Summary ---
Author Organization [facility] Address [address] [facility] [place] [address] Care Team Providers Care Member Service Representative Name Role Phone Shlomo Hu MD Primary Care Provider [phone] Jaocb Sharp SKIP OPERATOR Unavailable [phone] Thursday, Toya BIOLOGY LECTURER Unavailable [phone] Shlomo Hu MD Unavailable [phone] Shante Kumar ENVELOPE PRESS OPERATOR-LOGGING CREW FOREMAN Unavailable Claribel Scott RN Unavailable Jess Marsh BIOLOGY LECTURER Unavailable Esthela Tesfaye HOME DECORATOR Unavailable [phone] Encounter Details Date Type Department Care Team (Late st Contact Info) Description 10/12/2023 Abstract [facility] 112 [facility] 110 [place] [address] Shlomo uH MD 112 [facility] 110 [place], [place] [address] Social History Tobacco Use Types Packs/Day Years [...] often do you attend [facility] or church services? Patient declined 03/01/2023 Do [...] Recorded Patient Health Questionnaire-2 Score 6 08/26/2023 [facility] [place] of Occupat ional Health - Occupational Stress [...] WAY [facility] 120 [place] [address] Sonny Rodriguez, DPM [address] [address] 05/04/2025 2:50 PM EDT Office Visit [facility] [address] [facility] 120 [place] [address] Sonny Rodriguez, DPM [address] [address] documented as of this encounter Visit Diagnoses Not on filedocumented in this encounter Additional Health Concerns Assessment Noted Time PHQ-9 Depression Total Score: 9 08/26/20 23 1:30 PM EST documented as of this encounter Care Teams Member Service Representative Relationship Specialty Start Date End Date Shlomo Hu MD [address] [facility] 110 [place] [address] PCP - General Internal Medicine 02/15/23 [place] [address] [place] [address] PCP - [place] Commercial 08/14/23 Shlomo Hu MD [address] [facility] 110 [place] [address] PCP - [place] Commercial 05/15/2407/14 Shante Kumar APRN-LOGGING CREW FOREMAN [address] [place] [address] [place] [address] PCP - [place] Commercial 07/15/24 5 Juan CarlosToya hernandez LPN [address] [place] [address] Licensed Practical Nurse Family Medicine 01/19/24 10/21/24 Claribel Scott, RN [address] [place], [place] [address] Licensed Practical Nurse Family Medicine 10/21/24 12/06/24 Jess Marsh, DUKE 112 [facility] 110 [place] [address] 12/06/24 Esthela Tesfaye, HOME DECORATOR [address] [place] [address] Quality Assurance Associate Family Medicine 02/03/25 documented as of this encounter
--- OUTSIDE RECORDS SUMMARY | 2025-04-09 11:57 | XMS_ITS | Encounter Summary ---
Author Organization [facility] Address [address] [place] [address] Care Team Providers Care Optical Assistant Name Role Phone Ruiz Sean Mona GALVEZ Primary Care Provider [phone] Jacob Sharp Unavailable Rasheeda Newton RD Unavailable [phone] Unavailable [phone] Fritz HENDERSON MD, Shlomo B Primary Care Provider [phone] Yuan Miller MD, PhD Unavailable [phone] Source Comments In the event this information is protected by the Federal Confidentiality of Alcohol and Drug AbusePatient Records regulations: The Federal rules restrict any use of the information to criminally investigate or prosecute any alcohol or drug abuse patient.[facility] Encounter Details Date Type Department Care Team (Late st Contact Info) Description 07/07/2023 Get Medical Advice Gastroenterology [address] [address] Jorge L Saha PA-C [address] [address] [place] Social History Tobacco Use Types [...] from: https://www.neighborhoodatlas.medicine.[facility].edu/. Last address used for calculation [address] [place] [address] 03/05/2023 Comments No Sex and Gender Information [...] 04/10/2025 10:00 AM EDT Hospital Encounter Admitting [address] [place] [address] Yuan Miller MD, PhD [address] [place] [address] Nausea and vomiting, unspecified vomiting type [R11.2], H/O bariatric surgery [Z98.84], Jejunostomy tube fell out [T85.528A] 04/10/2025 10:00 AM EDT - 04/10/2025 12:00 PM EDT Surgery Admitting 9500 [place] [address] Yuan Miller MD, PhD 9500 [place] [address] LAPAROSCOPIC JEJUNOSTOMY 04/19/2025 11:00 AM EDT [facility] Neurological Yazidism [address] [id number] Joann Loera APRN.AREA ATTENDANT [address] [id number] Cognitive movement issues 04/21/2025 8:30 AM EDT [facility] Nutrition Therapy [address] [place] [address] [phone] Tiffany Banks, RD 9500 [place] [address] f/u TF forula tolerance and hydration 05/18/2025 9:00 AM T [facility] General Surgery [address] [place] [address] [id number] Michael Mora PA-C [address] [place] [id number] f/u with michael mora in 2 wks 05/29/2025 9:00 AM EDT [facility] Gastroenterology [address] [place] [address] [address]2006 Johanna Martinez MD [facility] [address] [address] [id number] 3 month follow up 06/28/2025 10:00 AM T [facility] Neurology Pain [address] [place] [address] [place] [address] [place] [address] Follow up for pain Scheduled Procedures Name [...] documented as of this encounter Care Teams Optical Assistant Relationship Specialty [place] [address] [place] [address] PCP - General Family Medicine 07/09/12 10/05/23 Shlomo Hu II, MD 112 [facility] 110 [place] [address] PCP - General Internal Medicine 10/06/23 Jacob Sharp [address] [place] [address] Referring 04/30/[address] [place] [address] Registered Dietitian Nutrition 06/24/[address] [place] [address] Registered Dietitian Nutrition 08/27/23 Yuan Miller MD, PhD 9500 [place], [place] [phone] Surgeon General Surgery 02/03/24 documented as of this encounter
--- OUTSIDE RECORDS SUMMARY | 2025-04-09 11:57 | XMS_ITS | Encounter Summary ---
Author Organization [facility] Address [address] [facility] [place] [address] Care Team Providers Care Morgue Attendant Name Role Phone Shlomo Hu MD Primary Care Provider [phone] Jacob Sharp BUDDHIST MONK Unavailable [phone] Thursday, Toya AIRCRAFT MOTOR MECHANIC Unavailable [phone] Shlomo Hu MD Unavailable [phone] Shante Kumar PUFF IRON OPERATOR-ADMITTED ATTORNEYS Unavailable Claribel Scott RN Unavailable Jess Marsh AIRCRAFT MOTOR MECHANIC Unavailable Esthela Tesfaye ALUMNI RELATIONS OFFICER Unavailable Encounter Details Date Type Department Care Team (Late st Contact Info) Description 10/22/2023 Orders Only [facility] [address] [facility] 110 [place] [address] A, Unknown Practice [address] [place] [address] Social History Tobacco Use Types [...] often do you attend [facility] or tenriism services? Patient declined 03/01/2023 Do you belong [...] Recorded Patient Health Questionnaire-2 Score 6 08/26/2023 [facility] of Occupat ional Health [...] [address] [facility] 120 [place] [address] Sonny Rodriguez, DPM [address] [address] 05/04/2025 2:50 PM EDT Office Visit [facility] [address] [facility] 120 [place] [address] Sonny Rodriguez DPM [address] [address] documented as of this encounter Procedures Procedure [...] documented as of this encounter Care Teams Morgue Attendant Relationship Specialty Start Date End Date Shlomo Hu MD [address] [facility] 110 [place] [address] PCP - General Internal Medicine 02/15/23 [place] [address] [place] [address] PCP - [place] Commercial 08/14/23 Shlomo Hu MD [address] [facility] 110 [place] [address] PCP - [place] Commercial 05/15/2407/14 Shante Kumar, PUFF IRON OPERATOR-ADMITTED ATTORNEYS [address] [place] [address] [place] [address] PCP - [place] Commercial 07/15/24 5 ThursdayToya LPN [address] [place] [address] Licensed Practical Nurse Family Medicine 01/19/24 10/21/24 Claribel Scott, RN [address] [place] [address] Licensed Practical Nurse Family Medicine 10/21/24 12/06/24 Jess Marsh LPN [address] [facility] 110 [place] [address] 12/06/24 Esthela Tefsaye, KIRA 1479 [place] [address] Guard Lieutenant Family Medicine 02/03/25 documented as of this encounter
--- OUTSIDE RECORDS SUMMARY | 2025-04-09 11:57 | XMS_ITS | Encounter Summary ---
Author Organization [facility] Address [address] [facility] [place] [address] Care Team Providers Care Girl Friday Name Role Phone Shlomo Hu MD Primary Care Provider [phone] Jacob Sharp BATCH BLENDER Unavailable Thursday, Toya COUNTERPERSON Unavailable [phone] Shlomo Hu MD Unavailable [phone] Shante Kumar ORCHARD SPRAYER-HEADING AND PRIMING TOOL SETTER Unavailable Claribel Scott RN Unavailable Jess Marsh COUNTERPERSON Unavailable Esthela Tesfaye MASTER GLAZIER Unavailable Encounter Details Date Type Department Care Team (Late st Contact Info) Description 10/26/2023 Abstract [facility] 112 [facility] 110 [place] [address] Shlomo Hu MD 112 [facility] 110 [place], [place] [phone] Social History Tobacco Use Types Packs/Day Years [...] you attend [facility] or jainism services? Patient declined 03/01/2023 Do you belong [...] Recorded Patient Health Questionnaire-2 Score 6 08/26/2023 [facility] [place] of Occupat ional Health - Occupational Stress [...] [address] [facility] 120 [place] [address] Sonny Rodriguez, DPM [address] [address] 05/04/2025 2:50 PM EDT Office Visit [facility] [address] [facility] 120 [place] [address] Sonny Rodriguez, DPM [address] [address] documented as of this encounter Visit Diagnoses Not on filedocumented in this encounter Additional Health Concerns Assessment Noted Time PHQ-9 Depression Total Score: 9 08/26/20 23 1:30 PM EST documented as of this encounter Care Teams Girl Friday Relationship Specialty Start Date End Date Shlomo Hu MD [address] [facility] 110 [place] [address] PCP - General Internal Medicine 02/15/23 [place] [address] [place] [address] PCP - [place] Commercial 08/14/23 Shlomo Hu MD [address] [facility] 110 [place] [address] PCP - [place] Commercial 05/15/2407/14 Shante Kumar APRN-HEADING AND PRIMING TOOL SETTER [address] [place] [address] [place] [address] PCP - [place] Commercial 07/15/24 5 Juan CarlosToya ehrnandez LPN [address] [place] [address] Licensed Practical Nurse Family Medicine 01/19/24 10/21/24 Claribel Scott, RN [address] [place], [place] [phone] Licensed Practical Nurse Family Medicine 10/21/24 12/06/24 Jess Marsh, DUKE 112 [facility] 110 [place] [address] 12/06/24 Esthela Tesfaye, MASTER GLAZIER [address] [place] [address] Manager Behavior Family Medicine 02/03/25 documented as of this encounter
--- OUTSIDE RECORDS SUMMARY | 2025-04-09 11:57 | XMS_ITS | Encounter Summary ---
Author Organization [facility] Address [address] [place] [address] Care Team Providers Care Hide Inspector And Sorter Name Role Phone Ruiz, Sean Mona GALVEZ Primary Care Provider [phone] Jacob Sharp Unavailable Rasheeda Newton RD Unavailable [phone] Unavailable [phone] Fritz HENDERSON MD, Shlomo B Primary Care Provider [phone] Yuan Miller MD, PhD Unavailable [phone] Source Comments In the event this information is protected by the Federal Confidentiality of Alcohol and Drug AbusePatient Records regulations: The Federal rules restrict any use of the information to criminally investigate or prosecute any alcohol or drug abuse patient.[facility] Encounter Details Date Type Department Care Team (Late st Contact Info) Description 07/02/2023 Get Medical Advice Gastroenterology [address] [address] Jorge L Saha PA-C [address] [place] [address] TPN and IV hydration Social History [...] 4 03/05/2023 Data from: https://www.neighborhoodatlas.medicine.[facility].edu/. Last address used for calculation [address] [place] [address] 03/05/2023 Comments No Sex and Gender Information [...] 04/10/2025 10:00 AM EDT Hospital Encounter Admitting [address] [place] [address] Yuan Miller MD, PhD [address] [place] [address] Nausea and vomiting, unspecified vomiting type [R11.2], H/O bariatric surgery [Z98.84], Jejunostomy tube fell out [T85.528A] 04/10/2025 10:00 AM EDT - 04/10/2025 12:00 PM EDT Surgery Admitting 9500 [place] [address] Yuan Miller MD, PhD 9500 [place] [address] LAPAROSCOPIC JEJUNOSTOMY 04/19/2025 11:00 AM EDT [facility] Neurological Yarsanism [address] [phone] Joann Loera APRN.OWNER MANAGER 9500 [place] [address] Cognitive movement issues 04/21/2025 8:30 AM EDT [facility] Nutrition Therapy [address] [place] [address] [phone] Tiffany Banks, RD [address] [place] [phone] f/u TF forula tolerance and hydration 05/18/2025 9:00 AM EDT [facility] General Surgery [address] [place] [address] 9857106 Michael Mora PA-C [address] [address] [address]8395 f/u with michael mora in 2 wks 05/29/2025 9:00 AM EDT [facility] Gastroenterology [address] [place] [phone] Johanna Martinez MD [facility] [address] [place], [place] [address] 3 month follow up 06/28/2025 10:00 AM EDT [facility] Neurology Pain [address] [address] [phone] Wilma Lei, [address] [place] [address] 0822295 Follow up for pain Scheduled Procedures Name [...] documented as of this encounter Care Teams Hide Inspector And Sorter Relationship Specialty [place] [address] [place] [address] PCP - General Family Medicine 07/09/12 10/05/23 Shlomo Hu II, MD 112 [facility] [place] [facility] 110 [place] [address] PCP - General Internal Medicine 10/06/23 Jacob Sharp [address] [place] [address] Referring 04/30/[address], [place] [address] Registered Dietitian Nutrition 06/24/[address]5 [place] [address] Registered Dietitian Nutrition 08/27/23 Yuan Miller MD, PhD 9500 [place] [address] Surgeon General Surgery 02/03/24 documented as of this encounter
--- OUTSIDE RECORDS SUMMARY | 2025-04-09 11:57 | XMS_ITS | Encounter Summary ---
Author Organization [facility] Address [address] [facility] [place] [address] Care Team Providers Care Rigger Up Name Role Phone Shlomo Hu MD Primary Care Provider [phone] Jacob Sharp RN DOCUMENTATION SPECIALIST Unavailable Thursday, Toya CHEESE COOKER Unavailable [phone] Shlomo Hu MD Unavailable [phone] Shante Kumar DIRECTOR OPERATIONS BROADCAST-NUT PROCESSING SUPERVISOR Unavailable Claribel Scott RN Unavailable Jess Marsh CHEESE COOKER Unavailable Esthela Tesfaye SENIOR UI DESIGNER Unavailable Encounter Details Date Type Department Care Team (Late st Contact Info) Description 10/12/2023 Abstract [facility] 112 [facility] 110 [place] [address] Shlomo Hu MD 112 [facility] 110 [place], [place] [address] Social History Tobacco Use Types Packs/Day Years [...] week 03/01/2023 How often do you attend [facility] or latter day services? Patient declined 03/01/2023 [...] Recorded Patient Health Questionnaire-2 Score 6 08/26/2023 [facility] of Occupat ional Health - Occupational Stress [...] [facility] [address] [facility] 120 [place] [address] Sonny Rodriguez, DPM [address] [address] 05/04/2025 2:50 PM EDT Office Visit [facility] [address] [facility] 120 [place] [address] Sonny Rodriguez, DPM [address] [address] documented as of this encounter Visit Diagnoses Not on filedocumented in this encounter Additional Health Concerns Assessment Noted Time PHQ-9 Depression Total Score: 9 08/26/20 23 1:30 PM EST documented as of this encounter Care Teams Rigger Up Relationship Specialty Start Date End Date Shlomo Hu MD [address] [facility] 110 [place] [address] PCP - General Internal Medicine 02/15/23 [place] [address] [place] [address] PCP - [place] Commercial 08/14/23 Shlomo Hu MD [address] [facility] 110 [place] [address] PCP - [place] Commercial 05/15/2407/14 Shante Kumar APRN-NUT PROCESSING SUPERVISOR [address] [place] [address] PCP - [place] Commercial 07/15/24 5 Juan CarlosToya hernandez LPN [address] [place] [address] Licensed Practical Nurse Family Medicine 01/19/24 10/21/24 Claribel Scott, RN [address] [place], [place] [phone] Licensed Practical Nurse Family Medicine 10/21/24 12/06/24 Jess Marsh, DUKE 112 [facility] 110 [place] [address] 12/06/24 Esthela Tesfaye, SENIOR UI DESIGNER [address] [place] [address] Shrimp Peeling Machine Tender Family Medicine 02/03/25 documented as of this encounter
--- OUTSIDE RECORDS SUMMARY | 2025-04-09 11:57 | XMS_ITS | Encounter Summary ---
Author Organization [facility] [employer] Address [id number] [address] [facility] [place] [address] Care Team Providers Care Tool Hardener Name Role Phone Skylar Echavarria JOSE-ELECTRIC INSTALLER Primary Care Provider + Encounter Details Date Type Department Care Team (Late st Contact Info) Description 07/16/2021 Orders Only [facility] Cardiology [address] [place] [address] External, Scanning Provider Social History Tobacco Use [...] Multiple labs (06/17/2021) us Scanning Provider External IA IMAGING Final Result Performing Organization Address [facility] de Phone Number MANUALLY TRANSCRIBED RESULTS * [...] Edited Result - Final Performing Organization Address [facility] de Phone Number MANUALLY TRANSCRIBED RESULTS * CT abdomen and pelvis without contrast (05/05/2021) Anatomical Region Laterality Modality Body, Abdomen, Body Covera N/A Compu nick Tomography us Scanning Provider External IMG CT ORDERABLES Fin al Result * ECG 12 lead (05/05/2021) us Scanning Provider External ECG ORDERABLES Final Result Performing Organization Address [facility] de Phone Number MANUALLY TRANSCRIBED RESULTS * [...] documented as of this encounter Care Teams Tool Hardener Relationship Specialty Start Date End Date Skylar Echavarria APRN-ELECTRIC INSTALLER [address] [place] [address] PCP - General Internal Medicine 11/18/23 documented as of this encounter
--- OUTSIDE RECORDS SUMMARY | 2025-04-09 11:57 | XMS_ITS | Encounter Summary ---
Author Organization [facility] Address [address] [place] [address] Care Team Providers Care Airport Operations Specialist Name Role Phone Jacob Sharp Unavailable Rasheeda Newton RD Unavailable [phone] Unavailable [phone] Fritz HENDERSON MD, Shlomo Momin Primary Care Provider [phone] Yuan Miller MD, PhD Unavailable [phone] Source Comments In the event this information is protected by the Federal Confidentiality of Alcohol and Drug AbusePatient Records regulations: The Federal rules restrict any use of the information to criminally investigate or prosecute any alcohol or drug abuse patient.[facility] Encounter Details Date Type Department Care Team (Late st Contact Info) Description 05/17/2024 Patient Msg Neurology [address] [place], [place] [phone] Provider, Valerie [employer] Social History Tobacco Use Types [...] is lower risk 4 03/05/2023 Data from: https://www.neighborhoodatlas.medicine.[facility].edu/. Last address used for calculation [...] file Travel History Travel Start Travel End [place] 03/18/2025 03/26/2025 documented as of this encounter [...] 10:00 AM EDT Hospital Encounter Admitting [facility] [place] [address] Yuan Miller MD, PhD [address] [place] [address] Nausea and vomiting, unspecified vomiting type [R11.2], H/O bariatric surgery [Z98.84], Jejunostomy tube fell out [T85.528A] 04/10/2025 10:00 AM EDT - 04/10/2025 12:00 PM EDT Surgery Admitting [facility] [place] [address] Yuan Miller MD, PhD [address] [place] [address] [phone] LAPAROSCOPIC JEJUNOSTOMY 04/19/2025 11:00 AM EDT [facility] Neurological Holiness 9300 [place] [address] Joann Loera APRN.ENTRY LEVEL JAVA DEVELOPER 9500 [place] [address] Cognitive movement issues 04/21/2025 8:30 AM EDT [facility] Nutrition Therapy [address] [place] [phone] Tiffany Banks, RD 9500 [place] [address] f/u TF forula tolerance and hydration 05/18/2025 9:00 AM EDT [facility] General Surgery 9300 [place] [address] Michael Mora PA-C 9500 [place] [address] f/u with michael mora in 2 wks 05/29/2025 9:00 AM EDT [facility] Gastroenterology [address] [place] [phone] Johanna Martinez MD [facility] [address] [place] [phone] 3 month follow up 06/28/2025 10:00 AM EDT [facility] Neurology Pain [address] [place] [place] [phone] [place] [address] [place] [phone] Follow up for pain Scheduled Procedures Name [...] documented as of this encounter Care Teams Airport Operations Specialist Relationship Specialty Start Date End Date Shlomo Hu II, MD [address] [place] [address] [place] [address] PCP - General Internal Medicine 10/06/23 Jacob Sharp [address] [place] [address] Referring 04/30/[address] [place] [address] Registered Dietitian Nutrition 06/24/[address]503 [place] [address] Registered Dietitian Nutrition 08/27/23 Yuan Miller MD, PhD 9299 [place] [address] Surgeon General Surgery 02/03/24 documented as of this encounter
--- OUTSIDE RECORDS SUMMARY | 2025-04-09 11:57 | XMS_ITS | Encounter Summary ---
Author Organization [facility] Address [address] [facility] [place] [address] Care Team Providers Care Guitar Technician Name Role Phone Shlomo Hu MD Primary Care Provider Jacob Sharp ORDNANCE ENGINEERING TECHNICIAN Unavailable [phone] Thursday, Toya LIVER TRIMMER Unavailable [phone] Shlomo Hu MD Unavailable [phone] Shante Kumar AUDIT MACHINE OPERATOR-SALES ASSOCIATE KEY HOLDER Unavailable Claribel Scott RN Unavailable Jess Marsh LIVER TRIMMER Unavailable Esthela Tesfaye SECY Unavailable [phone] Encounter Details Date Type Department Care Team (Late st Contact Info) Description 10/06/2023 Abstract [facility] [place] [facility] 112 [facility] 110 [place] [address] Shlomo Hu MD 112 [facility] [place] [facility] 110 [place], [place] [address] Social History Tobacco Use Types Packs/Day Years [...] you attend [facility] or jehovah's witness services? Patient declined 03/01/2023 Do you belong [...] Recorded Patient Health Questionnaire-2 Score 6 08/26/2023 [facility] [place] of Occupat ional Health - Occupational Stress [...] [facility] [address] [facility] 120 [place] [address] Sonny Rodriguez, DPM [address] [address] 05/04/2025 2:50 PM EDT Office Visit [facility] [address] [facility] 120 [place] [address] Sonny Rodriguez, DPM [address] [address] documented as of this encounter Visit Diagnoses Not on filedocumented in this encounter Additional Health Concerns Assessment Noted Time PHQ-9 Depression Total Score: 9 08/26/20 23 1:30 PM EST documented as of this encounter Care Teams Guitar Technician Relationship Specialty Start Date End Date Shlomo Hu MD [address] [facility] 110 [place] [address] PCP - General Internal Medicine 02/15/23 [place] [address] [place] [address] PCP - [place] [employer] 08/14/23 Shlomo Hu MD [address] [facility] 110 [place] [address] PCP - [place] [employer] 05/15/2407/14 Shante Kumar APRN-SALES ASSOCIATE KEY HOLDER [address] [place] [address] [place] [address] PCP - [place] [employer] 07/15/24 5 Juan CarlosToya hernandez LPN [address] [place] [address] Licensed Practical Nurse Family Medicine 01/19/24 10/21/24 Claribel Scott, RN [address] [place], [place] [id number] Licensed Practical Nurse Family Medicine 10/21/24 12/06/24 Jess Marsh, DUKE 112 [facility] [place] [facility] 110 [place] [address] 12/06/24 Esthela Tesfaye, SECY [address] [place] [address] [facility] 02/03/25 documented as of this encounter
--- OUTSIDE RECORDS SUMMARY | 2025-04-09 11:57 | XMS_ITS | Encounter Summary ---
Author Organization [facility] Address [address] [place] [address] Care Team Providers Care Cod Clerk Name Role Phone Ruiz Sean Mona GALVEZ Primary Care Provider [phone] Jacob Sharp Unavailable Rasheeda Newton RD Unavailable [phone] Unavailable Fritz HENDERSON MD, Shlomo Momin Primary Care Provider [phone] Yuan Miller MD, PhD Unavailable [phone] Source Comments In the event this information is protected by the Federal Confidentiality of Alcohol and Drug AbusePatient Records regulations: The Federal rules restrict any use of the information to criminally investigate or prosecute any alcohol or drug abuse patient.[facility] Encounter Details Date Type Department Care Team (Late st Contact Info) Description 06/26/2023 Patient Msg Gastroenterology [address] [id number] Provider, Ccf Nutrition Notes Social History Tobacco [...] in a care home (including now)? No 09/18/2022 Area Deprivation Index Answer Date Reagan rded National Score (1-100), lower number is lower ri sk 63 03/05/2023 State Score (1-10), lower number is lower risk 4 03/05/2023 Data from: https://www.neighborhoodatlas.medicine.[facility].edu/. Last address used for calculation [address] [...] 10:00 AM EDT Hospital Encounter Admitting [address] [place] [address] [place] [address] [place], [place] [id number] Nausea and vomiting, unspecified vomiting type [R11.2], H/O bariatric surgery [Z98.84], Jejunostomy tube fell out [T85.528A] 04/10/2025 10:00 AM EDT - 04/10/2025 12:00 PM EDT Surgery Admitting 9500 [place] [address] Yuan Miller MD, PhD 9500 [place] [address] LAPAROSCOPIC JEJUNOSTOMY 04/19/2025 11:00 AM EDT [facility] Neurological Yarsani 9300 [place] [address] Joann Loera APRN.CHARGE LOADER [address] [id number] Cognitive movement issues 04/21/2025 8:30 AM EDT [facility] Nutrition Therapy [address] [phone] Tiffany Banks, RD 9500 [place] [address] f/u TF forula tolerance and hydration 05/18/2025 9:00 AM EDT [facility] General Surgery [address] [phone] Michael Mora PA-C 9500 [place] [address] f/u with michael mora in 2 wks 05/29/2025 9:00 AM EDT [facility] Gastroenterology [address] [id number] Johanna Martinez MD [facility] [address] [place], [place] [id number] 3 month follow up 06/28/2025 10:00 AM EDT [facility] Neurology Pain [address] [id number] [place] [address] [address] [id number] Follow up for pain Scheduled Procedures Name [...] documented as of this encounter Care Teams Cod Clerk Relationship Specialty [place] [address] [place] [address] PCP - General Family Medicine 07/09/12 10/05/23 Shlomo Hu II, MD [address] [facility] 110 [place] [address] PCP - General Internal Medicine 10/06/23 Jacob Sharp [address] [place] [address] Referring 04/30/[address] [place] [address] Registered Dietitian Nutrition 06/24/[address]00 [place] [address] Registered Dietitian Nutrition 08/27/23 Yuan Miller MD, PhD 9500 [place] [address] Surgeon General Surgery 02/03/24 documented as of this encounter
--- OUTSIDE RECORDS SUMMARY | 2025-04-09 11:58 | XMS_ITS | Encounter Summary ---
Author Organization [facility] Address [address] [place] [address] Care Team Providers Care Pigment Grinder Name Role Phone Joseph Sean Mona GALVEZ Primary Care Provider [phone] Jacob Sharp Unavailable Rasheeda Newton RD Unavailable [phone] Unavailable [phone] Fritz HENDEROSN MD, Shlomo B Primary Care Provider [phone] Yuan Miller MD, PhD Unavailable [phone] Source Comments In the event this information is protected by the Federal Confidentiality of Alcohol and Drug AbusePatient Records regulations: The Federal rules restrict any use of the information to criminally investigate or prosecute any alcohol or drug abuse patient.[facility] Encounter Details Date Type Department Care Team (Late st Contact Info) Description 06/04/2023 Get Medical Advice Gastroenterology [address] [address] Maged Persaud MD 9500 [place] [address] Appointment Social History Tobacco Use [...] in a senior care (including now)? No 09/18/2022 Area Deprivation Index Answer Date Reagan rded National Score (1-100), lower number is lower ri sk 63 03/05/2023 State Score (1-10), lower number is lower risk 4 03/05/2023 Data from: https://www.neighborhoodatlas.medicine.[facility].edu/. 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 Not on file Not on file Travel History Travel Start Travel End [place] 03/18/2025 03/26/2025 documented as of this encounter [...] Entry Date Author No 04/23/2023 1:28 PM TRENAT Manish Fish RN documented in this encounter Plan of Treatment Upcoming Encounters Date Type Department Care Team (Latest Contact Info) Description 04/10/2025 10:00 AM EDT Hospital Encounter Admitting [address] [place] [address] Yuan Miller MD, PhD [address] [place] [address] Nausea and vomiting, unspecified vomiting type [R11.2], H/O bariatric surgery [Z98.84], Jejunostomy tube fell out [T85.528A] 04/10/2025 10:00 AM EDT - 04/10/2025 12:00 PM EDT Surgery Admitting 9500 [place] [address] Yuan Miller MD, PhD [address] [phone] LAPAROSCOPIC JEJUNOSTOMY 04/19/2025 11:00 AM EDT [facility] Neurological Mandaeism [address] [phone] Joann Loera, JOSE.LIFE SCIENCES INSTRUCTOR [address] [phone] Cognitive movement issues 04/21/2025 8:30 AM EDT [facility] Nutrition Therapy [address] [phone] Tiffany Banks, RD 9500 [place] [address] f/u TF forula tolerance and hydration 05/18/2025 9:00 AM T [facility] General Surgery [address] [phone] Michael Mora PA-C [address] [phone] f/u with michael mora in 2 wks 05/29/2025 9:00 AM T [facility] Gastroenterology [address] [phone] Johanna Martinez MD [facility] [address] [id number] 3 month follow up 06/28/2025 10:00 AM T [facility] Neurology Pain [address] [phone] [place] [address] [place] [address] Follow up for pain Scheduled Procedures Name [...] documented as of this encounter Care Teams Pigment Grinder Relationship Specialty [place] [address] [place] [address] PCP - General Family Medicine 07/09/12 10/05/23 Shlomo Hu II, MD 112 [facility] 110 [place] [address] PCP - General Internal Medicine 10/06/23 Jacob Sharp [address] [place] [address] Referring 04/30/[address] [place] [address] Registered Dietitian Nutrition 06/24/[address]00 [place] [address] Registered Dietitian Nutrition 08/27/23 Yuan Miller MD, PhD 9500 [place] [address] Surgeon General Surgery 02/03/24 documented as of this encounter
--- OUTSIDE RECORDS SUMMARY | 2025-04-09 11:58 | XMS_ITS | Encounter Summary ---
Author Organization [facility] Address [address] [facility] [place] [address] Care Team Providers Care Supervisor Maintenance And Custodians Name Role Phone Shlomo Hu MD Primary Care Provider Jacob Sharp MANAGER E LEARNING Unavailable Thursday, Toya AUTOMATIC SPINNING LATHE OPERATOR Unavailable [phone] Shlomo Hu MD Unavailable [phone] Shante Kumar WEB SERVICES MANAGER-ECOSYSTEM ECOLOGY PROFESSOR Unavailable Claribel Scott RN Unavailable Jess Marsh AUTOMATIC SPINNING LATHE OPERATOR Unavailable Esthela Tesfaye MASSOTHERAPIST Unavailable Encounter Details Date Type Department Care Team (Late st Contact Info) Description 11/24/2023 Orders Only [facility] [place] [facility] [address] [place] 110 [place] [address] Unallocated, Noms Provider, [address] [place], [place] [address] Social History Tobacco Use Types Packs/Day Years [...] How often do you attend chur or taoism services? 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 Not on file Not on file documented as of this encounter Plan of Treatment Upcoming Encounters Date Type Department Care Team (Late st Contact Info) Description 04/20/2025 3:00 PM EDT Office Visit [facility] [address] [place] [address] [place] [address] Sonny Rodriguez, DPM [address] [address] 05/04/2025 2:50 PM EDT Office Visit [facility] [address] [facility] 120 [place] [address] Sonny Rodriguez, DPM [address] [address] documented as of this encounter Procedures Procedure [...] as of this encounter Care Teams Supervisor Maintenance And Custodians Relationship Specialty Start Date End Date Shlomo Hu MD [address] [facility] 110 [place] [address] PCP - General Internal Medicine 02/15/23 [place] [address] [place] [address] PCP - [place] [employer] 08/14/23 Shlomo Hu MD [address] [facility] 110 [place] [address] PCP - [place] [employer] 05/15/2407/14 Shante Kumar, WEB SERVICES MANAGER-ECOSYSTEM ECOLOGY PROFESSOR [address] [place] [address] PCP - [place] [employer] 07/15/24 ThursdayToya LPN [address] [place] [address] Licensed Practical Nurse Family Medicine 01/19/24 10/21/24 Claribel Scott, RN [address] [place] [address] Licensed Practical Nurse Family Medicine 10/21/24 12/06/24 Jess Marsh LPN [address] [facility] 110 [place] [address] 12/06/24 Esthela Tesfaye, MASSOTHERAPIST [address] [place] [address] Care Giver Family Medicine 02/03/25 documented as of this encounter
--- OUTSIDE RECORDS SUMMARY | 2025-04-09 11:58 | XMS_ITS | Encounter Summary ---
Author Organization [facility] Address [address] [facility] [place] [address] Care Team Providers Care Paper Production Engineer Name Role Phone Shlomo Hu MD Primary Care Provider Jacob Sharp SURGICAL GARMENT INSPECTOR Unavailable [phone] Thursday, Toya TURFGRASS TECHNICIAN Unavailable [phone] Shlomo Hu MD Unavailable [phone] Shante Kumar PRODUCTION TOOL ENGINEER-SIGNAL AND COMMUNICATIONS MAINTAINER Unavailable Claribel Scott RN Unavailable [phone] Jess Marsh TURFGRASS TECHNICIAN Unavailable Esthela Tesfaye INFORMATION TECHNOLOGY SECURITY MANAGER Unavailable [phone] Encounter Details Date Type Department Care Team (Late st Contact Info) Description 11/20/2023 Orders Only [facility] [place] [facility] [address] [facility] 110 [place] [address] Yanci Aguilar PA [address] [facility] 110 [place] [address] Ectopic thyroid tissue; Hypothyroidism, unspecified type Social [...] How often do you attend chur or gnosticist services? Patient declined 03/01/2023 Do you belong [...] Recorded Patient Health Questionnaire-2 Score 6 08/26/2023 [facility] [...] Office Visit [facility] [address] [facility] 120 [place] [address] Sonny Rodriguez, DPM [address] [address] 05/04/2025 2:50 PM EDT Office Visit [facility] [address] 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 Hypothyroidism, unspecified type documented in this encounter Additional Health Concerns Assessment Noted Time PHQ-9 Depression Total Score: 08/26/20 23 1:30 PM EST documented as of this encounter Care Teams Paper Production Engineer Relationship Specialty Start Date End Date Shlomo Hu MD 112 [facility] 110 [place] [address] PCP - General Internal Medicine 02/15/23 [place] [address] [place] [address] PCP - [place] [employer] 08/14/23 Shlomo Hu MD [address] [facility] 110 [place] [address] PCP - [place] [employer] 05/15/2407/14 Shante Kumar APRN-SIGNAL AND COMMUNICATIONS MAINTAINER [address] [facility] 160 [place] [address] PCP - [place] [employer] 07/15/24, DUKE Pittman [address] [place] [address] Licensed Practical Nurse Family Medicine 01/19/24 10/21/24 Claribel Scott, RN [address] [place] [address] Licensed Practical Nurse Family Medicine 10/21/24 12/06/24 Jess Marsh LPN [address] [place] [address] [place] [address] 12/06/24 Esthela Tesfaye, KIRA 1479 [place] [address] Overhead Garage Door Hanger Family Medicine 02/03/25 documented as of this encounter
--- OUTSIDE RECORDS SUMMARY | 2025-04-09 11:58 | XMS_ITS | Encounter Summary ---
Author Organization [facility] Address [address] [place] [address] Care Team Providers Care Marriage And Family Therapist Name Role Phone Jacob Sharp Unavailable Rasheeda Newton RD Unavailable [phone] Unavailable [phone] Fritz HENDERSON MD, Shlmoo Momin Primary Care Provider [phone] Yuan Miller MD, PhD Unavailable [phone] Source Comments In the event this information is protected by the Federal Confidentiality of Alcohol and Drug AbusePatient Records regulations: The Federal rules restrict any use of the information to criminally investigate or prosecute any alcohol or drug abuse patient.[facility] Encounter Details Date Type Department Care Team (Late st Contact Info) Description 03/28/2025 Patient Msg HOSP MAIN H060 [address] [place], [place] [phone] Provider, Ccf Sign up to manage your digestive symptoms in between visits, covered by insurance Social History Tobacco Use Types Packs/Day Years Used Date Smoking Tobacco: Never Smokeless Tobacco: Never Alcohol Use Standard Drinks/Week Comments Not Currently 0 (1 standard drink = 0.6 oz pur e alcohol) [facility] Utilities Answer Date Recorded In [...] is lower risk 4 03/05/2023 Data from: https://www.neighborhoodatlas.[facility]/. Last address used for calculation [address] [...] 10:00 AM EDT Hospital Encounter Admitting [address] [id number] Yuan Miller MD, PhD [address] [id number] Nausea and vomiting, unspecified vomiting type [R11.2], H/O bariatric surgery [Z98.84], Jejunostomy tube fell out [T85.528A] 04/10/2025 10:00 AM EDT - 04/10/2025 12:00 PM EDT Surgery Admitting [address] [id number] Yuan Miller MD, PhD [facility] [place] [phone] LAPAROSCOPIC JEJUNOSTOMY 04/19/2025 11:00 AM EDT [facility] Neurological Hoahaoism 9300 [place] [address] Joann Loera, ROAD CONTRACTOR.LAST DIPPER [address] [phone] Cognitive movement issues 04/21/2025 8:30 AM EDT [facility] Nutrition Therapy [address] [phone] Tiffany Banks, RD 9500 [place] [address] f/u TF forula tolerance and hydration 05/18/2025 9:00 AM EDT [facility] General Surgery 00 [place] [address] Michael Mora PA-C [address] [phone] f/u with michael mora in 2 wks 05/29/2025 9:00 AM EDT [facility] Gastroenterology [address] [phone] Johanna Martinez MD [facility] [address] [place] [address] 3 month follow up 06/28/2025 10:00 AM EDT [facility] Neurology Pain [address] [place] [address] [place] [address] [place], [place] [phone] Follow up for pain Scheduled Procedures Name Priority Associated Diagnoses Date/Ti me LAPAROSCOPIC JEJUNOSTOMY Nausea and vomiting, unspecified vomiting type H/O bariatric surgery Jejunostomy tube fell out 04/10/2025 10:00 AM EDT documented as of this encounter Visit Diagnoses Not on filedocumented in this encounter Care Teams Marriage And Family Therapist Relationship Specialty Start Date End Date Shlomo Hu II, MD 112 [facility] [place] [facility] 110 [place] [address] PCP - General Internal Medicine 10/06/23 Jacob Sharp [address] [place] [address] Referring 04/30/[address] [address] Registered Dietitian Nutrition 06/24/[address] [phone] Registered Dietitian Nutrition 08/27/23 Yuan Miller MD, PhD [address]00 [place], [place] [phone] Surgeon General Surgery 02/03/24 documented as of this encounter
--- OUTSIDE RECORDS SUMMARY | 2025-04-09 11:58 | XMS_ITS | Encounter Summary ---
Author Organization [facility] Address [address] [facility] [place] [address] Care Team Providers Care Network Diagnostic Support Specialist Name Role Phone Shlomo Hu MD Primary Care Provider Jacob Sharp GEOPOLITICS TEACHER Unavailable Thursday, Toya WINDER OPERATOR Unavailable [phone] Shlomo Hu MD Unavailable [phone] Shante Kumar CUSTOM APPLICATOR-IN STORE MARKETER Unavailable Claribel Scott RN Unavailable [phone] Jess Marsh WINDER OPERATOR Unavailable Esthela Tesfaye MARKETING PRODUCTION MANAGER Unavailable Encounter Details Date Type Department Care Team (Late st Contact Info) Description 11/03/2023 Abstract [facility] [place] [facility] 112 [facility] 110 [place] [address] Shlomo Hu MD 112 [facility] 110 [place], [place] [phone] Social History Tobacco Use Types Packs/Day Years [...] How often do you attend [facility] or holiness services? Patient declined 03/01/2023 Do [...] Recorded Patient Health Questionnaire-2 Score 6 08/26/2023 [facility] [place] of Occupat ional Health - Occupational Stress [...] [address] [facility] 120 [place] [address] Sonny Rodriguez, DPM [address] [address] 05/04/2025 2:50 PM EDT Office Visit [facility] [address] [facility] 120 [place] [address] Sonny Rodriguez, DPM [address] [address] documented as of this encounter Visit Diagnoses Not on filedocumented in this encounter Additional Health Concerns Assessment Noted Time PHQ-9 Depression Total Score: 9 08/26/20 23 1:30 PM EST documented as of this encounter Care Teams Network Diagnostic Support Specialist Relationship Specialty Start Date End Date Shlomo Hu MD [address] [facility] 110 [place] [address] PCP - General Internal Medicine 02/15/23 [place] [address] [place] [address] PCP - [place] [employer] 08/14/23 Shlomo Hu MD [address] [facility] 110 [place] [address] PCP - [place] [employer] 05/15/2407/14 Shante Kumar APRN-IN STORE MARKETER [address] [place] [address] PCP - [place] [employer] 07/15/24 5 Juan CarlosToya hernandez LPN [address] [place] [address] Licensed Practical Nurse Family Medicine 01/19/24 10/21/24 Claribel Scott, RN [address] [place], [place] [phone] Licensed Practical Nurse Family Medicine 10/21/24 12/06/24 Jess Marsh, DUKE 112 [facility] 110 [place] [address] 12/06/24 Esthela Tesfaye, MARKETING PRODUCTION MANAGER [address] [place] [address] Electronic Organ Technician Family Medicine 02/03/25 documented as of this encounter
--- OUTSIDE RECORDS SUMMARY | 2025-04-09 11:58 | XMS_ITS | Encounter Summary ---
Author Organization [facility] Address [address] [place] [address] Care Team Providers Care Wafer Fabrication Operator Name Role Phone Ruiz, Sean Mona GALVEZ Primary Care Provider [phone] Jacob Sharp Unavailable Rasheeda Newton RD Unavailable [phone] Unavailable [phone] Fritz HENDERSON MD, Shlomo Momin Primary Care Provider [phone] Yuan Miller MD, PhD Unavailable [phone] Source Comments In the event this information is protected by the Federal Confidentiality of Alcohol and Drug AbusePatient Records regulations: The Federal rules restrict any use of the information to criminally investigate or prosecute any alcohol or drug abuse patient.[facility] Encounter Details Date Type Department Care Team (Late st Contact Info) Description 05/12/2023 Patient Msg General Surgery [address] [place] [address] Provider, Ccf colonoscopy Social History [...] hospital.[email or web address]/. Last address used for calculation [address] [...] 04/10/2025 10:00 AM EDT Hospital Encounter Admitting [address] [place] [address] Yuan [place], [place] [address] [place] [address] Nausea and vomiting, unspecified vomiting type [R11.2], H/O bariatric surgery [Z98.84], Jejunostomy tube fell out [T85.528A] 04/10/2025 10:00 AM EDT - 04/10/2025 12:00 PM EDT Surgery Admitting [address] [place] [address] Yuan Miller MD, PhD [address] [id number] LAPAROSCOPIC JEJUNOSTOMY 04/19/2025 11:00 AM EDT [facility] Neurological Latter-Day [address] [place] [address] Joann Loera APRN.NUTRITION FACULTY MEMBER [address] [id number] Cognitive movement issues 04/21/2025 8:30 AM EDT [facility] Nutrition Therapy [address] [phone] Tiffany Banks, RD [address] [id number] f/u TF forula tolerance and hydration 05/18/2025 9:00 AM EDT [facility] General Surgery 9300 [place] [address] Michael Mora PA-C 9500 [place] [address] f/u with michael mora in 2 wks 05/29/2025 9:00 AM EDT [facility] Gastroenterology [address] [id number] Johanna Martinez MD [facility] [address] [place], [place] [id number] 3 month follow up 06/28/2025 10:00 AM EDT [facility] Neurology Pain [address] [id number] [place] [address] [address] [id number] Follow up for pain Scheduled Procedures Name [...] documented as of this encounter Care Teams Wafer Fabrication Operator Relationship Specialty [place] [address] [place] [address] PCP - General Family Medicine 07/09/12 10/05/23 Shlomo Hu II, MD 112 [facility] 110 [place] [address] PCP - General Internal Medicine 10/06/23 Jacob Sharp [address] [place] [address] Referring 04/30/[address] [place] [address] Registered Dietitian Nutrition 06/24/[address] [place] [address] Registered Dietitian Nutrition 08/27/23 Yuan Miller MD, PhD [address] [phone] Surgeon General Surgery 02/03/24 documented as of this encounter
--- OUTSIDE RECORDS SUMMARY | 2025-04-09 11:58 | XMS_ITS | Encounter Summary ---
Author Organization [facility] Address [address] [facility] [place] [address] Care Team Providers Care Engraving Supervisor Name Role Phone Shlomo Hu MD Primary Care Provider Jacob Sharp FARM MACHINERY SET UP MECHANIC Unavailable Thursday, Toya AMPHIBIOUS OPERATIONS OFFICER Unavailable [phone] Shlomo Hu MD Unavailable [phone] Shante Kumar HARNESSMAKER APPRENTICE-FISH HATCHERY INSPECTOR Unavailable Claribel Scott RN Unavailable Jess Marsh AMPHIBIOUS OPERATIONS OFFICER Unavailable Esthela Tesfaye IRON WORKER APPRENTICE Unavailable Encounter Details Date Type Department Care Team (Late st Contact Info) Description 11/03/2023 Orders Only [facility] [address] [facility] 110 [place] [address] A, Unknown Practice [address] [place] [address] Social History Tobacco Use Types [...] do you attend [facility] or yazidi services? Patient declined 03/01/2023 Do [...] Recorded Patient Health Questionnaire-2 Score 6 08/26/2023 [facility] - Occupational [...] [address] [place] [address] Sonny Rodriguez, DPM [address] [address] 05/04/2025 2:50 PM EDT Office Visit [facility] [address] [place] [address] Sonny Rodriguez DPM [address] [address] documented as of this encounter Procedures Procedure [...] documented as of this encounter Care Teams Engraving Supervisor Relationship Specialty Start Date End Date Shlomo Hu MD [address] [facility] 110 [place] [address] PCP - General Internal Medicine 02/15/23 Jacob Sharp, FELICITA [address] [place] [address] PCP - Jane Lew Commercial 08/14/23 Shlomo Hu MD [address] [facility] 110 [place] [address] PCP - Jane Lew Commercial 05/15/2407/14 Shante Kumar APRN-FISH HATCHERY INSPECTOR [address] [place] [address] PCP - Denzel Commercial 07/15/24 ThursdayToya LPN [address] [place] [address] Licensed Practical Nurse Family Medicine 01/19/24 10/21/24 Claribel Scott, RN [address] [place] [address] Licensed Practical Nurse Family Medicine 10/21/24 12/06/24 Jess Marsh LPN [address] [facility] 110 [place] [address] 12/06/24 Esthela Tesfaye LSW [address] [place] [address] Machine Umbrella Tipper Family Medicine 02/03/25 documented as of this encounter
--- OUTSIDE RECORDS SUMMARY | 2025-04-09 11:58 | XMS_ITS | Encounter Summary ---
Author Organization [facility] Address [address] [place], [place] [address] Care Team Providers Care Solar Installer Name Role Phone Jacob Sharp Unavailable Rasheeda Newton RD Unavailable [phone] Unavailable [phone] Fritz HENDERSON MD, Shlomo B Primary Care Provider [phone] Yuan Miller MD, PhD Unavailable [phone] Source Comments In the event this information is protected by the Federal Confidentiality of Alcohol and Drug AbusePatient Records regulations: The Federal rules restrict any use of the information to criminally investigate or prosecute any alcohol or drug abuse patient.[facility] Encounter Details Date Type Department Care Team (Latest Contact Info) Description 03/29/2025 Travel Social History Tobacco Use Types Packs/Day Years Used Date Smoking Tobacco: Never Smokeless Tobacco: Never Alcohol Use Standard Drinks/Week Comments Not Currently 0 (1 standard drink = 0.6 oz pur e alcohol) [facility] Utilities Answer Date Recorded In the past 12 months has [employer] electric, gas, oil, or water company threatened [...] Data from: https://www.neighborhoodatlas.[facility]/. Last address used for calculation [address] [...] 04/10/2025 10:00 AM EDT Hospital Encounter Admitting [address] [place] [address] Yuan Miller MD, PhD 9500 [place] [address] Nausea and vomiting, unspecified vomiting type [R11.2], H/O bariatric surgery [Z98.84], Jejunostomy tube fell out [T85.528A] 04/10/2025 10:00 AM EDT - 04/10/2025 12:00 PM EDT Surgery Admitting 9500 [place] [address] Yuan Miller MD, PhD [address] [phone] LAPAROSCOPIC JEJUNOSTOMY 04/19/2025 11:00 AM EDT [facility] Neurological Mu-Ism [address] [place], [place] [phone] Joann Loera APRN.PSYCHIATRIC CLINICIAN 9500 [place] [address] Cognitive movement issues 04/21/2025 8:30 AM EDT [facility] Nutrition Therapy [address] [phone] Tiffany Banks, RD [address] [phone] f/u TF forula tolerance and hydration 05/18/2025 9:00 AM EDT [facility] General Surgery [address] [phone] Michael Mora PA-C 9500 [place] [address] f/u with michael mora in 2 wks 05/29/2025 9:00 AM EDT [facility] Gastroenterology [address] [phone] Johanna Martinez MD [facility] [address] [place], [place] [address] 3 month follow up 06/28/2025 10:00 AM EDT [facility] Neurology Pain [address] [phone] [place] [address] [address] [phone] Follow up for pain Scheduled Procedures Name Priority Associated Diagnoses Date/Ti me LAPAROSCOPIC JEJUNOSTOMY Nausea and vomiting, unspecified vomiting type H/O bariatric surgery Jejunostomy tube fell out 04/10/2025 10:00 AM EDT documented as of this encounter Visit Diagnoses Not on filedocumented in this encounter Care Teams Solar Installer Relationship Specialty Start Date End Date Shlomo Hu II, MD 112 [facility] [place] [facility] 110 [place] [address] PCP - General Internal Medicine 10/06/23 Jacob Sharp [address] [place] [address] Referring 04/30/[address], [place] [address] Registered Dietitian Nutrition 06/24/[address] [facility] [phone] Registered Dietitian Nutrition 08/27/23 Yuan Miller MD, PhD [address] [phone] Surgeon General Surgery 02/03/24 documented as of this encounter
--- OUTSIDE RECORDS SUMMARY | 2025-04-09 11:58 | XMS_ITS | Encounter Summary ---
Author Organization [facility] Address [address] [place], [place] [address] Care Team Providers Care Mill Beam Fitter Name Role Phone Jacob Sharp Unavailable Rasheeda Newton RD Unavailable [phone] Unavailable [phone] Fritz HENDERSON MD, Shlomo B Primary Care Provider [phone] Yuan Miller MD, PhD Unavailable [phone] Source Comments In the event this information is protected by the Federal Confidentiality of Alcohol and Drug AbusePatient Records regulations: The Federal rules restrict any use of the information to criminally investigate or prosecute any alcohol or drug abuse patient.[facility] Encounter Details Date Type Department Care Team (Latest Contact Info) Description 03/31/2025 Travel Social History Tobacco Use Types Packs/Day Years Used Date Smoking Tobacco: Never Smokeless Tobacco: Never Alcohol Use Standard Drinks/Week Comments Not Currently 0 (1 standard drink = 0.6 oz pur e alcohol) [facility] Utilities Answer Date Recorded In the past 12 months has [employer] electric, gas, oil, or water company threatened [...] risk 4 03/05/2023 Data from: https://www.neighborhoodatlas.[facility]/. Last address used for calculation [address] 03/05/2023 Comments [...] 04/10/2025 10:00 AM EDT Hospital Encounter Admitting [address] [place] [address] Yuan Miller MD, PhD 9500 [place] [address] Nausea and vomiting, unspecified vomiting type [R11.2], H/O bariatric surgery [Z98.84], Jejunostomy tube fell out [T85.528A] 04/10/2025 10:00 AM EDT - 04/10/2025 12:00 PM EDT Surgery Admitting 9500 [place] [address] Yuan Miller MD, PhD [address] [phone] LAPAROSCOPIC JEJUNOSTOMY 04/19/2025 11:00 AM EDT [facility] Neurological Sabianism [address] [place], [place] [phone] Joann Loera APRN.LOG DECK TENDER 9500 [place] [address] Cognitive movement issues 04/21/2025 8:30 AM EDT [facility] Nutrition Therapy [address] [phone] Tiffany Banks, RD [address] [phone] f/u TF forula tolerance and hydration 05/18/2025 9:00 AM EDT [facility] General Surgery [address] [phone] Michael Mora PA-C 9500 [place] [address] f/u with michael mora in 2 wks 05/29/2025 9:00 AM EDT [facility] Gastroenterology [address] [phone] Johanna Martinez MD [facility] [address] [place], [place] [address] 3 month follow up 06/28/2025 10:00 AM EDT [facility] Neurology Pain [address] [address] [phone] [place] [address] [address] [phone] Follow up for pain Scheduled Procedures Name Priority Associated Diagnoses Date/Ti me LAPAROSCOPIC JEJUNOSTOMY Nausea and vomiting, unspecified vomiting type H/O bariatric surgery Jejunostomy tube fell out 04/10/2025 10:00 AM EDT documented as of this encounter Visit Diagnoses Not on filedocumented in this encounter Care Teams Mill Beam Fitter Relationship Specialty Start Date End Date Shlomo Hu II, MD 112 [facility] 110 [place] [address] PCP - General Internal Medicine 10/06/23 Jacob Sharp [address] [place] [address] Referring 04/30/[address], [place] [address] Registered Dietitian Nutrition 06/24/[address] [facility] [place] [phone] Registered Dietitian Nutrition 08/27/23 Yuan Miller MD, PhD [address] [phone] Surgeon General Surgery 02/03/24 documented as of this encounter
--- OUTSIDE RECORDS SUMMARY | 2025-04-09 11:58 | XMS_ITS | Encounter Summary ---
Author Organization [facility] Address [address] [place] [address] Care Team Providers Care Financial Reporting Analyst Name Role Phone Joseph Sean Mona GALVEZ Primary Care Provider [phone] Jacob Sharp Unavailable Rasheeda Newton RD Unavailable [phone] Unavailable [phone] Fritz HENDERSON MD, Shlomo Momin Primary Care Provider [phone] Yuan Miller MD, PhD Unavailable [phone] Source Comments In the event this information is protected by the Federal Confidentiality of Alcohol and Drug AbusePatient Records regulations: The Federal rules restrict any use of the information to criminally investigate or prosecute any alcohol or drug abuse patient.[facility] Encounter Details Date Type Department Care Team (Late st Contact Info) Description 04/27/2023 Get Medical Advice Hematology/Oncology [address] [place] [address] Lacey Youssef, ROCK WORKER.COMPUTER SYSTEMS ADMINISTRATOR 9504 [place] [address] Blood work Social History Tobacco [...] slept in a mcc (including now)? No 09/18/2022 Area Deprivation Index Answer Date Reagan rded National Score (1-100), lower number is lower ri sk 63 03/05/2023 State Score (1-10), lower number is lower risk 4 03/05/2023 Data from: https://www.neighborhoodatlas.medicine.[place].edu/. Last address used for calculation [address] [place] [address] 03/05/2023 Comments No Sex and Gender Information [...] 04/10/2025 10:00 AM EDT Hospital Encounter Admitting [address] [place] [address] Yuan Miller MD, PhD [address] [place] [address] Nausea and vomiting, unspecified vomiting type [R11.2], H/O bariatric surgery [Z98.84], Jejunostomy tube fell out [T85.528A] 04/10/2025 10:00 AM EDT - 04/10/2025 12:00 PM EDT Surgery Admitting 9500 [place] [address] Yuan Miller MD, PhD 9500 [place] [address] LAPAROSCOPIC JEJUNOSTOMY 04/19/2025 11:00 AM EDT [facility] Neurological Orthodoxy [address] [phone] Joann Loera APRN.COMPUTER SYSTEMS ADMINISTRATOR [address] [phone] Cognitive movement issues 04/21/2025 8:30 AM EDT [facility] Nutrition Therapy [address] [phone] Tiffany Banks, RD 9500 [place] [address] f/u TF forula tolerance and hydration 05/18/2025 9:00 AM EDT [facility] General Surgery [address] [phone] Michael Mora PA-C [address] [phone] f/u with michael mora in 2 wks 05/29/2025 9:00 AM EDT [facility] Gastroenterology [address] [phone] Johanna Martinez MD [facility] [address] [id number] 3 month follow up 06/28/2025 10:00 AM T [facility] Neurology Pain [address] [place] [address] [place] [address] [place] [address] Follow up for pain Scheduled Procedures Name [...] documented as of this encounter Care Teams Financial Reporting Analyst Relationship Specialty [place] [address] [place] [address] PCP - General Family Medicine 07/09/12 10/05/23 Shlomo Hu II, MD [address] [address] PCP - General Internal Medicine 10/06/23 Jacob Sharp [address] [place] [address] Referring 04/30/[address] [place] [address] Registered Dietitian Nutrition 06/24/[address]00 [place] [address] Registered Dietitian Nutrition 08/27/23 Yuan Miller MD, PhD [address]00 [place] [address] Surgeon General Surgery 02/03/24 documented as of this encounter
--- OUTSIDE RECORDS SUMMARY | 2025-04-09 11:58 | XMS_ITS | Encounter Summary ---
Author Organization [facility] Address [address] [place] [address] Care Team Providers Care Surgical First Assistant Name Role Phone Sean Ruiz Mona GALVEZ Primary Care Provider Jacob Sharp Unavailable Rasheeda Newton RD Unavailable [phone] Unavailable [phone] Fritz HENDERSON MD, Shlomo B Primary Care Provider [phone] Yuan Miller MD, PhD Unavailable [phone] Source Comments In the event this information is protected by the Federal Confidentiality of Alcohol and Drug AbusePatient Records regulations: The Federal rules restrict any use of the information to criminally investigate or prosecute any alcohol or drug abuse patient.[facility] Encounter Details Date Type Department Care Team (Late st Contact Info) Description 05/08/2023 Patient Msg Pain Management [address] [place], [place] [phone] Johann Echeverria MD [address] [place], [place] [phone] Request an Appointment Social History Tobacco Use [...] slept in a long-term (including now)? No 09/18/2022 Area Deprivation Index Answer Date Reagan rded National Score (1-100), lower number is lower ri sk 63 03/05/2023 State Score (1-10), lower number is lower risk 4 03/05/2023 Data from: https://www.neighborhoodatlas.medicine.[facility].edu/. Last address used for calculation [...] of Assessment Author No 04/23/2023 1:28 PM Manish Maynard RN * Do you have serious difficulty walking or climbing stairs? Answer Date of Assessment Author No 04/23/2023 1:28 PM TRENAT Manish Fish RN * Do you have difficulty dressing or bathing? Answer Date of Assessment Author No 04/23/2023 1:28 PM TRENAT Manish Fish RN * Because of a physical, mental, or emotional condition, do you have difficulty doing errands alone such as visiting a doctor's office or shopping? Answer Date of Assessment Author No 04/23/2023 1:28 PM Manish Maynard RN documented as of this encounter Mental Status * Because of a physical, mental, or emotional condition, do you have serious difficulty concentrating, remembering, or making decisions? Answer Entry Date Author No 04/23/2023 1:28 PM Manish Maynard RN documented in this encounter Plan of Treatment Upcoming Encounters Date Type Department Care Team (Latest Contact Info) Description 04/10/2025 10:00 AM EDT Hospital Encounter Admitting [address] [place] [address] Yuan Miller MD, PhD [address] [place] [address] Nausea and vomiting, unspecified vomiting type [R11.2], H/O bariatric surgery [Z98.84], Jejunostomy tube fell out [T85.528A] 04/10/2025 10:00 AM EDT - 04/10/2025 12:00 PM EDT Surgery Admitting 9500 [place] [address] Yuan Miller MD, PhD [address]00 [place] [address] LAPAROSCOPIC JEJUNOSTOMY 04/19/2025 11:00 AM EDT [facility] Neurological Islam [address] [phone] Joann Loera, JOSE.FITNESS CENTRE MANAGER [address] [phone] Cognitive movement issues 04/21/2025 8:30 AM EDT [facility] Nutrition Therapy [address] [phone] Tiffany Banks, RD [address] [place] [address] f/u TF forula tolerance and hydration 05/18/2025 9:00 AM T [facility] General Surgery [address] [phone] Michael Mora PA-C [address] [phone] f/u with michael mora in 2 wks 05/29/2025 9:00 AM T [facility] Gastroenterology [address] [phone] Johanna Martinez MD [facility] [address] [phone] 3 month follow up 06/28/2025 10:00 AM T [facility] Neurology Pain [address] [address] [address] [phone] [place] [address] [address] [phone] Follow up for pain Scheduled Procedures Name [...] documented as of this encounter Care Teams Surgical First Assistant Relationship Specialty [place] [address] [place], [place] [address] PCP - General Family Medicine 07/09/12 10/05/23 Shlomo Hu II, MD 112 [facility] 110 [place] [address] PCP - General Internal Medicine 10/06/23 Jacob Sharp [address] [place] [address] Referring 04/30/[address] [place] [address] Registered Dietitian Nutrition 06/24/[address]00 [place], [place] [phone] Registered Dietitian Nutrition 08/27/23 Yuan Miller MD, PhD [address] [place] [address] Surgeon General Surgery 02/03/24 documented as of this encounter
--- OUTSIDE RECORDS SUMMARY | 2025-04-09 11:58 | XMS_ITS | Encounter Summary ---
Author Organization [facility] Address [address] [place] [address] Care Team Providers Care Transcript Clerk Name Role Phone Jacob Sharp Unavailable Rasheeda Newton RD Unavailable [phone] Unavailable [phone] Fritz HENDERSON MD, Shlomo B Primary Care Provider [phone] Yuan Miller MD, PhD Unavailable [phone] Source Comments In the event this information is protected by the Federal Confidentiality of Alcohol and Drug AbusePatient Records regulations: The Federal rules restrict any use of the information to criminally investigate or prosecute any alcohol or drug abuse patient.[facility] Encounter Details Date Type Department Care Team (Late st Contact Info) Description 03/30/2025 Orders Only General Surgery [address] [id number] Yenny Cast RN Dehydration (Primary Dx); H/O bariatric surgery Social History Tobacco Use Types Packs/Day Years Used Date Smoking Tobacco: Never Smokeless Tobacco: Never Alcohol Use Standard Drinks/Week Comments Not Currently 0 (1 standard drink = 0.6 oz pur e alcohol) [facility] Utilities Answer Date Recorded In the past 12 months has th e [employer], gas, oil, or water company threatened to [...] is lower risk 4 03/05/2023 Data from: https://www.neighborhoodatlas.medicine.[facility]/. Last address used for [...] file Travel History Travel Start Travel End [place] 03/18/2025 03/26/2025 documented as of this encounter [...] 10:00 AM EDT Hospital Encounter Admitting [address] [place] [address] Yuan Miller MD, PhD [address] [place] [address] Nausea and vomiting, unspecified vomiting type [R11.2], H/O bariatric surgery [Z98.84], Jejunostomy tube fell out [T85.528A] 04/10/2025 10:00 AM EDT - 04/10/2025 12:00 PM EDT Surgery Admitting [address] [id number] Yuan Miller MD, PhD [address] [id number] LAPAROSCOPIC JEJUNOSTOMY 04/19/2025 11:00 AM EDT [facility] Neurological Voodoo [address] [place] [address] Joann Loera, PROFESSIONAL FIGHTER.AUTO RENTAL SUPERVISOR [address] [id number] Cognitive movement issues 04/21/2025 8:30 AM EDT [facility] Nutrition Therapy [address] [address] Tiffany Banks, RD [address]00 [place] [address] f/u TF forula tolerance and hydration 05/18/2025 9:00 AM EDT [facility] General Surgery [address] [place] [address] Michael Mora PA-C [address] [id number] f/u with imchael mora in 2 wks 05/29/2025 9:00 AM EDT [facility] Gastroenterology [address] [address] Johanna Martinez MD [facility] [address] [place] [address] 3 month follow up 06/28/2025 10:00 AM EDT [facility] Neurology Pain [address] [place] [phone] [place] [address] [place], [place] [phone] Follow up for pain Scheduled Procedures Name Priority Associated Diagnoses Date/Ti me LAPAROSCOPIC JEJUNOSTOMY Nausea and vomiting, unspecified vomiting type H/O bariatric surgery Jejunostomy tube fell out 04/10/2025 10:00 AM EDT documented as of this encounter Visit Diagnoses Diagnosis Dehydration- Primary H/O bariatric surgery Bariatric surgery status Nausea and vomiting, unspecified vomiting type H/O bariatric surgery Bariatric surgery status Jejunostomy tube fell out Mechanical complication of colostomy and enterostomy documented in this encounter Care Teams Transcript Clerk Relationship Specialty Start Date End Date Shlomo Hu II, MD [address] [place] [address] PCP - General Internal Medicine 10/06/23 Jacob Sharp [address] [place] [address] [phone] Referring 04/30/[address] [place], [place] [phone] Registered Dietitian Nutrition 06/24/[address] [place], [place] [phone] Registered Dietitian Nutrition 08/27/23 Yuan Miller MD, PhD [address] [place] [address] Surgeon General Surgery 02/03/24 documented as of this encounter
--- OUTSIDE RECORDS SUMMARY | 2025-04-09 11:58 | XMS_ITS | Encounter Summary ---
Author Organization [facility] Address [address] [place] [address] Care Team Providers Care Setter Automatic Spinning Lathe Name Role Phone Ruiz Sean Mona GALVEZ Primary Care Provider [phone] Jacob Sharp Unavailable Rasheeda Newton RD Unavailable [phone] Unavailable [phone] Fritz HENDERSON MD, Shlomo Momin Primary Care Provider [phone] Yuan Miller MD, PhD Unavailable [phone] Source Comments In the event this information is protected by the Federal Confidentiality of Alcohol and Drug AbusePatient Records regulations: The Federal rules restrict any use of the information to criminally investigate or prosecute any alcohol or drug abuse patient.[facility] Encounter Details Date Type Department Care Team (Late st Contact Info) Description 06/10/2023 Patient Msg Gastroenterology [address] [phone] Provider, [facility] Nutrition Introduction Social History Tobacco [...] hospital.edu/. Last address used for calculation [address] 03/05/2023 Comments No [...] Assessment Author No 04/23/2023 1:28 PM EDT Mansih Fish RN * Are you blind or [...] 04/10/2025 10:00 AM EDT Hospital Encounter Admitting [address] [place] [address] Yuan Miller MD, PhD [address] [place] [address] Nausea and vomiting, unspecified vomiting type [R11.2], H/O bariatric surgery [Z98.84], Jejunostomy tube fell out [T85.528A] 04/10/2025 10:00 AM EDT - 04/10/2025 12:00 PM EDT Surgery Admitting [address] [place] [address] Yuan Miller MD, PhD [address] [id number] LAPAROSCOPIC JEJUNOSTOMY 04/19/2025 11:00 AM EDT [facility] Neurological Muslim [address] [place] [address] Joann Loera APRN.NEW ACCOUNTS REPRESENTATIVE [address] [place] [address] Cognitive movement issues 04/21/2025 8:30 AM EDT [facility] Nutrition Therapy [address] [phone] Tiffany Banks, RD [address]00 [place] [address] f/u TF forula tolerance and hydration 05/18/2025 9:00 AM EDT [facility] General Surgery [address] [place] [address] Michael Mora PA-C [address] [place] [address] f/u with michael mora in 2 wks 05/29/2025 9:00 AM EDT [facility] Gastroenterology [address] [phone] Johanna Martinez MD [facility] [address] [phone] 3 month follow up 06/28/2025 10:00 AM EDT [facility] Neurology Pain [address] [place] [phone] [place] [address] [address] [phone] Follow up for pain Scheduled Procedures Name [...] documented as of this encounter Care Teams Setter Automatic Spinning Lathe Relationship Specialty [place] [address] [place] [address] PCP - General Family Medicine 07/09/12 10/05/23 Shlomo Hu II, MD [address] [facility] 110 [place] [address] PCP - General Internal Medicine 10/06/23 Jacob Sharp [address] [place] [address] Referring 04/30/[address] [place] [address] Registered Dietitian Nutrition 06/24/[address] [place] [address] Registered Dietitian Nutrition 08/27/23 Yuan Miller MD, PhD [address] [phone] Surgeon General Surgery 02/03/24 documented as of this encounter
--- OUTSIDE RECORDS SUMMARY | 2025-04-09 11:58 | XMS_ITS | Encounter Summary ---
Author Organization [facility] Address [address] [facility] [place] [address] Care Team Providers Care Cap Coverer Name Role Phone Shlomo Hu MD Primary Care Provider Jacob Sharp MI[employer]OS[employer] DYNAM[employer] AX DEVELOPER Unavailable Thursday, Toya EXAMINING CHAIR ASSEMBLER Unavailable [phone] Shlomo Hu MD Unavailable [phone] Shante Kumar ARC WELDER APPRENTICE-TOE FORMER STITCHDOWNS Unavailable Claribel Scott RN Unavailable Jess Marsh EXAMINING CHAIR ASSEMBLER Unavailable Esthela Tesfaye SEPTIC TANK CLEANER Unavailable Encounter Details Date Type Department Care Team (Late st Contact Info) Description 12/31/2023 Abstract [facility] [place] [facility] 112 [facility] 110 [place] [address] Shlomo Hu MD 112 [facility] 110 [place], [place] [phone] Social History Tobacco Use Types Packs/Day Years [...] week 03/01/2023 How often do you attend [facility] or adventism services? 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 Not on file Not on file Not on file documented as of this encounter Plan of Treatment Upcoming Encounters Date Type Department Care Team (Late st Contact Info) Description 04/20/2025 3:00 PM EDT Office Visit [facility] [address] [place] [address] Sonny Rodriguez, DPM [address] [address] 05/04/2025 2:50 PM EDT Office Visit [facility] [address] [place] [address] Sonny Rodriguez, DPM [address] [address] documented as of this encounter Visit Diagnoses Not on filedocumented in this encounter Additional Health Concerns Assessment Noted Time PHQ-9 Depression Total Score: 9 08/26/20 23 1:30 PM EST documented as of this encounter Care Teams Cap Coverer Relationship Specialty Start Date End Date Sholmo Hu MD [address] [facility] 110 [place] [address] PCP - General Internal Medicine 02/15/23 [place] [address] [place] [address] PCP - [place] [employer] 08/14/23 Shlomo Hu MD [address] [facility] 110 [place] [address] PCP - [place] [employer] 05/15/2407/14 Shante Kumar APRN-TOE FORMER STITCHDOWNS [address] [place] [address] PCP - [place] [employer] 11Thursday, DUKE Pittman [address] [place] [address] Licensed Practical Nurse Family Medicine 01/19/24 10/21/24 Claribel Scott, RN [address] [place] [address] Licensed Practical Nurse Family Medicine 10/21/24 12/06/24 Jess Marsh LPN [address] [place] [address] 12/06/24 Esthela Tesfaye, KIRA [address] [place] [address] Pediatric Geneticist Family Medicine 02/03/25 documented as of this encounter
--- OUTSIDE RECORDS SUMMARY | 2025-04-09 11:58 | XMS_ITS | Encounter Summary ---
Author Organization [facility] Address [address] [facility] [place] [address] Care Team Providers Care Corrective And Manual Arts Therapist Name Role Phone Shlomo Hu MD Primary Care Provider Jacob Sharp PROFESSOR/NURSE ANESTHETIST Unavailable [phone] Thursday, Toya SAS STATISTICAL PROGRAMMER Unavailable [phone] Shlomo Hu MD Unavailable [phone] Shante Kumar UNDERWRITING SUPPORT SPECIALIST-STOCK SAW OPERATOR Unavailable Claribel Scott RN Unavailable Jess Marsh SAS STATISTICAL PROGRAMMER Unavailable Esthela Tesfaye COLLETER Unavailable [phone] Encounter Details Date Type Department Care Team (Late st Contact Info) Description 11/05/2023 Abstract [facility] [place] [facility] 112 [facility] 110 [place] [address] Shlomo Hu MD 112 [facility] 110 [place], [place] [phone] Social History Tobacco Use Types Packs/Day Years [...] How often do you attend [facility] or hindu services? Patient declined 03/01/2023 Do [...] Recorded Patient Health Questionnaire-2 Score 6 08/26/2023 [facility] [place] of Occupat ional Health - Occupational Stress [...] WAY [email or web address] 120 [place] [address] Sonny Rodriguez, DPM [address] [address] 05/04/2025 2:50 PM EDT Office Visit [facility] [address] [facility] [[email or web address] [address] [place] [address] Sonny Rodriguez, DPM [address] [address] documented as of this encounter Visit Diagnoses Not on filedocumented in this encounter Additional Health Concerns Assessment Noted Time PHQ-9 Depression Total Score: 9 08/26/20 23 1:30 PM EST documented as of this encounter Care Teams Corrective And Manual Arts Therapist Relationship Specialty Start Date End Date Shlomo Hu MD [address] [email or web address] 110 [place] [address] PCP - General Internal Medicine 02/15/23 [place] [address] [place] [address] PCP - [place] [employer] 08/14/23 Shlomo Hu MD [address] [facility] [[email or web address] 110 [place] [address] PCP - [place] [employer] 05/15/2407/14 Shante Kumar APRN-STOCK SAW OPERATOR [address] [place] [address] PCP - [place] [employer] 07/15/24 5 Juan CarlosToya hernandez LPN [address] [place] [address] Licensed Practical Nurse Family Medicine 01/19/24 10/21/24 Claribel Scott, RN [address] [place], [place] [phone] Licensed Practical Nurse Family Medicine 10/21/24 12/06/24 Jess Marsh, DUKE 112 [facility] 110 [place] [address] 12/06/24 Esthela Tesfaye, COLLETER [address] [place] [address] Exercise Manager Family Medicine 02/03/25 documented as of this encounter
--- OUTSIDE RECORDS SUMMARY | 2025-04-09 11:58 | XMS_ITS | Encounter Summary ---
Author Organization [facility] Address [address] [place] [address] Care Team Providers Care Scheduling Agent Name Role Phone Jacob Sharp Unavailable Rasheeda Newton RD Unavailable [phone] Unavailable [phone] Fritz HENDERSON MD, Shlomo B Primary Care Provider [phone] Yuan Miller MD, PhD Unavailable [phone] Source Comments In the event this information is protected by the Federal Confidentiality of Alcohol and Drug AbusePatient Records regulations: The Federal rules restrict any use of the information to criminally investigate or prosecute any alcohol or drug abuse patient.[facility] Reason for Visit * Reason Comments Initial Consult Urgent Dispatch Encounter Details Date Type Department Care Team (Late st Contact Info) Description 03/30/2025 Telephone Medical Care at Home [address] [facility] [address] [place] [phone] Nhi Moody, JAVA DEVELOPER ANALYST.ADMINISTRATION PROFESSIONAL [address] [place] [phone] Initial Consult (Urgent Dispatch) Social History Tobacco Use Types Packs/Day Years Used Date Smoking Tobacco: Never Smokeless Tobacco: Never Alcohol Use Standard Drinks/Week Comments Not Currently 0 (1 standard drink = 0.6 oz pur e alcohol) [facility] Utilities Answer Date Recorded In the [...] https://www.neighborhoodatlas.medicine.[facility]/. Last address used for calculation [address] [...] Donna lOea RN * Do you have serious difficulty [...] encounter Miscellaneous Notes * Telephone Encounter - Vani Monsalve PSS - 03/30/2025 1:57 PM EDT UD ANAHY visit confirmed for 03/31/2025 SHANDRA Rosas * Telephone Encounter - Vani Monsalve PSS - 03/30/2025 1:57 PM EDT Transitional Care Program - Intake Template - for interface Date Referral Received: 03/30/2025 Referral Source: CC Physician office TC Program: UD - Other DDSI UD Consult scheduled with: [facility] Urgent Dispatch ANAHY Hospital Discharge Date: TCM RN Name: na Date of : 1975 Age: [age] year old PCP: Shlomo Hu II, MD, MD Visit address from [facility]: [address] [facility] [address] Code [address] To [address] [place] [address] Name of Physician who gave the order: Yuan Miller MD, PhD Other services ordered: None Primary Insurance Company: Payor: [employer] / Plan: [employer] PPO / Product Type: PPO / Primary Insurance ID Number: [id number] * Telephone Encounter - Vani Monsalve PSS - 03/30/2025 1:53 PM EDT Message received from RN in DDSI clinic. Patient staying with family in [place], [place]. Will reach out to schedule. SHANDRA Rosas * Telephone Encounter - Vani Monsalve PSS - 03/30/2025 12:05 PM EDT Patient's [place], [place] ouside of Urgent Dispatch service territory. Message sent to referring provider to ensure information is correct. If patient is local, will offer visit. SHANDRA Rosas * Telephone Encounter - Vani Monsalve PSS - 03/30/2025 12:05 PM EDT Comments dependent on enteral nutrition has been w/o FT for 5 days replacement lap J Tuesday 04/03 vomiting Order Questions Question Answer Specialty of Ordering Provider: DDSI DDSI Specialty: General Surgery Contact Information for Urgent Dispatch After-Visit Communication (Provider Name/Phone Number) Yenny Cast Preferred Contact Route: Staff Message History of Present Illness Summary: severe Reason for Consult/Interventions Requested by Specialist: FTT DISPOSITION: Next Day UD Visit documented in this encounter Plan of Treatment Upcoming Encounters Date Type Department Care Team (Latest Contact Info) Description 04/10/2025 10:00 AM EDT Hospital Encounter Admitting [address] [place] [address] Yuan Miller MD, PhD [address] [place] [address] Nausea and vomiting, unspecified vomiting type [R11.2], H/O bariatric surgery [Z98.84], Jejunostomy tube fell out [T85.528A] 04/10/2025 10:00 AM EDT - 04/10/2025 12:00 PM EDT Surgery Admitting [address] [place] [address] Yuan Miller MD, PhD [address] [place] [address] LAPAROSCOPIC JEJUNOSTOMY 04/19/2025 11:00 AM EDT [facility] 9300 [place] [address] Joann Loera APRN.ADMINISTRATION PROFESSIONAL [address] [place], [place] 0[address] Cognitive movement issues 04/21/2025 8:30 AM EDT [facility] Nutrition Therapy [address] [address] Tiffany Banks, RD 9500 [place] [address] f/u TF forula tolerance and hydration 05/18/2025 9:00 AM EDT [facility] General Surgery [address] [place] [address] Michael Mora PA-C [address] [place] [address] f/u with michael mora in 2 wks 05/29/2025 9:00 AM EDT [facility] Gastroenterology [address] [address] [facility] [address] [place] [id number] 3 month follow up 06/28/2025 10:00 AM EDT [facility] Neurology Pain [address] [place] [address] [place] [address] [place] [address] Follow up for pain Scheduled Procedures Name Priority Associated Diagnoses Date/Ti me LAPAROSCOPIC JEJUNOSTOMY Nausea and vomiting, unspecified vomiting type H/O bariatric surgery Jejunostomy tube fell out 04/10/2025 10:00 AM EDT documented as of this encounter Visit Diagnoses Not on filedocumented in this encounter Care Teams Scheduling Agent Relationship Specialty Start Date End Date Shlomo Hu II, MD 112 [facility] 110 [place] [address] PCP - General Internal Medicine 10/06/23 Jacob Sharp [address] [place] [address] Referring 04/30/[address] [place] [phone] Registered Dietitian Nutrition 06/24/[address] [place] [address] Registered Dietitian Nutrition 08/27/23 Yuan Miller MD, PhD [address] [place] [address] Surgeon General Surgery 02/03/24 documented as of this encounter
--- OUTSIDE RECORDS SUMMARY | 2025-04-09 11:58 | XMS_ITS | Encounter Summary ---
Author Organization [facility] Address [facility] [place] [address] Care Team Providers Care Chief Security And Safety Officer Name Role Phone Jacob Sharp Unavailable Rasheeda Newton RD Unavailable [phone] Unavailable [phone] Fritz HENDERSON MD, Shlomo Momin Primary Care Provider [phone] Yuan Miller MD, PhD Unavailable [phone] Source Comments In the event this information is protected by the Federal Confidentiality of Alcohol and Drug AbusePatient Records regulations: The Federal rules restrict any use of the information to criminally investigate or prosecute any alcohol or drug abuse patient.[facility] Reason for Visit * Reason Comments Appointment Encounter Details Date Type Department Care Team (Late st Contact Info) Description 03/28/2025 Telephone Gastroenterology [address] [place] [phone] Yuan Miller MD, PhD [address] [place] [address] Appointment Social History Tobacco Use [...] risk 4 03/05/2023 Data from: https://www.neighborhoodatlas.[facility]/. Last address used for calculation [address] [...] encounter Miscellaneous Notes * Telephone Encounter - Jo Rodriguez - 03/30/2025 9:44 AM EDT Patient called confused about surgery location and asking why was her appt canceled that was scheduled for today. Jo * Telephone Encounter - Jo Rodriguez - 03/28/2025 10:21 AM EDT Patient called her feeding tube came out and she can not get one in. She will need it surgically put in please call patient. Tube has been out 5 days and wound is closed. Jo documented in this encounter Plan of Treatment Upcoming Encounters Date Type Department Care Team (Latest Contact Info) Description 04/10/2025 10:00 AM EDT Hospital Encounter Admitting [address] [place] [address] Yuan Miller MD, PhD [address] [place] [phone] Nausea and vomiting, unspecified vomiting type [R11.2], H/O bariatric surgery [Z98.84], Jejunostomy tube fell out [T85.528A] 04/10/2025 10:00 AM EDT - 04/10/2025 12:00 PM EDT Surgery Admitting [facility] [place] [address] Yuan Miller MD, PhD [facility] [place] [phone] LAPAROSCOPIC JEJUNOSTOMY 04/19/2025 11:00 AM EDT [facility] Neurological Nondenominational [address] [place] [address] Joann Loera APRN.SENIOR C SOFTWARE DEVELOPER 9500 [place] [address] Cognitive movement issues 04/21/2025 8:30 AM EDT [facility] Nutrition Therapy [address] [place] [address] f/u TF forula tolerance and hydration 05/18/2025 9:00 AM EDT [facility] General Surgery [address] [place] [phone] Michael Mora PA-C [address] [place] [phone] f/u with michael mora in 2 wks 05/29/2025 9:00 AM EDT [facility] Gastroenterology [address] [address] Johanna Martinez MD [facility] [address] [place] [phone] 3 month follow up 06/28/2025 10:00 AM EDT [facility] Neurology Pain [address] [place] [address] [place] [address] [place] [address] Follow up for pain Scheduled Procedures Name Priority Associated Diagnoses Date/Ti me LAPAROSCOPIC JEJUNOSTOMY Nausea and vomiting, unspecified vomiting type H/O bariatric surgery Jejunostomy tube fell out 04/10/2025 10:00 AM EDT documented as of this encounter Visit Diagnoses Not on filedocumented in this encounter Care Teams Chief Security And Safety Officer Relationship Specialty Start Date End Date Shlomo Hu II, MD 112 [facility] 110 [place] [address] PCP - General Internal Medicine 10/06/23 Jacob Sharp [address] [place] [address] Referring 04/30/[address] [place] [address] Registered Dietitian Nutrition 06/24/[address] [place], [place] [phone] Registered Dietitian Nutrition 08/27/23 Yuan Miller MD, PhD [address] [place] [address] Surgeon General Surgery 02/03/24 documented as of this encounter
--- OUTSIDE RECORDS SUMMARY | 2025-04-09 11:58 | XMS_ITS | Encounter Summary ---
Author Organization [facility] Address [address] [facility] [place] [address] Care Team Providers Care Warp Changer Name Role Phone Shlomo Hu MD Primary Care Provider [phone] Jacob Sharp SPANISH SPEAKING NANNY Unavailable Thursday, Toya ROUTE MANAGER Unavailable [phone] Shlomo Hu MD Unavailable [phone] Shante Kumar OPHTHALMIC TECHNOLOGIST-MANAGER STYLIST Unavailable Claribel Scott RN Unavailable Jess Marsh ROUTE MANAGER Unavailable Esthela Tesfaye SPACE ENGINEER Unavailable [phone] Encounter Details Date Type Department Care Team (Late st Contact Info) Description 12/07/2023 Abstract [facility] [place] [facility] 112 [facility] 110 [place] [address] Shlomo Hu MD 112 [facility] 110 [place], [place] [address] Social History Tobacco Use Types Packs/Day Years [...] How often do you attend [facility] or denominational services? 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 Not on file Not on file documented as of this encounter Plan of Treatment Upcoming Encounters Date Type Department Care Team (Late st Contact Info) Description 04/20/2025 3:00 PM EDT Office Visit [facility] [address] [place] [address] Sonny Rodriguez, DPM [address] [address] 05/04/2025 2:50 PM EDT Office Visit [facility] [address] [place] [address] Sonny Rodriguez, DPM [address] [address] documented as of this encounter Visit Diagnoses Not on filedocumented in this encounter Additional Health Concerns Assessment Noted Time PHQ-9 Depression Total Score: 9 08/26/20 23 1:30 PM EST documented as of this encounter Care Teams Warp Changer Relationship Specialty Start Date End Date Shlomo Hu MD [address] [facility] 110 [place] [address] PCP - General Internal Medicine 02/15/23 [place] [address] [place] [address] PCP - [place] [employer] 08/14/23 Shlomo Hu MD [address] [facility] 110 [place] [address] PCP - [place] [employer] 05/15/2407/14 Shante Kumar APRN-MANAGER STYLIST [address] [place] [address] PCP - [place] [employer] 11Thursday, DUKE Pittman [address] [place] [address] Licensed Practical Nurse Family Medicine 01/19/24 10/21/24 Claribel Scott, RN [address] [place] [address] Licensed Practical Nurse Family Medicine 10/21/24 12/06/24 Jess Marsh LPN [address] [place] [address] 12/06/24 Esthela Tesfaye, KIRA 14[address] [place] [address] Jailer/Training Officer Family Medicine 02/03/25 documented as of this encounter
--- OUTSIDE RECORDS SUMMARY | 2025-04-09 11:58 | XMS_ITS | Encounter Summary ---
Author Organization [facility] Address [address] [place] [address] Care Team Providers Care Tai Chi Instructor Name Role Phone Jacob Sharp Unavailable Rasheeda Newton RD Unavailable [phone] Unavailable [phone] Fritz HENDERSON MD, Shlomo Momin Primary Care Provider [phone] Yuan Miller MD, PhD Unavailable [phone] Source Comments In the event this information is protected by the Federal Confidentiality of Alcohol and Drug AbusePatient Records regulations: The Federal rules restrict any use of the information to criminally investigate or prosecute any alcohol or drug abuse patient.[facility] Encounter Details Date Type Department Care Team (Late st Contact Info) Description 04/02/2025 Get Medical Advice General Surgery [address] [place] [address] Yuan Miller MD, PhD [address] [place] [address] Feeding tube Social History Tobacco [...] living in a longterm (including now)? No 04/03/2025 Area Deprivation Index Answer Date Reagan rded National Score (1-100), lower number is lower ri sk 63 03/05/2023 State Score (1-10), lower number is lower risk 4 03/05/2023 Data from: https://www.neighborhoodatlas.[facility]/. Last address used for calculation [address] [...] 10:00 AM EDT Hospital Encounter Admitting 9500 [place] [address] Yuan Miller MD, PhD [address] [place] [id number] Nausea and vomiting, unspecified vomiting type [R11.2], H/O bariatric surgery [Z98.84], Jejunostomy tube fell out [T85.528A] 04/10/2025 10:00 AM EDT - 04/10/2025 12:00 PM EDT Surgery Admitting [address] [place] [id number] Yuan Miller MD, PhD [address] [place] [id number] LAPAROSCOPIC JEJUNOSTOMY 04/19/2025 11:00 AM EDT [facility] Neurological Jew [address] [place] [address] Joann Loera APRN.PROSTHETIC AIDE [address] [place] [id number] Cognitive movement issues 04/21/2025 8:30 AM EDT [facility] Nutrition Therapy [address] [address] Tiffany Banks, RD [address] [place] [id number] f/u TF forula tolerance and hydration 05/18/2025 9:00 AM EDT [facility] General Surgery [address] [place] [address] Michael Mora PA-C [address] [place] [id number] f/u with michael mora in 2 wks 05/29/2025 9:00 AM EDT [facility] Gastroenterology [address] [address] Johanna Martinez MD [facility] [address] [place], [place] [phone] 3 month follow up 06/28/2025 10:00 AM EDT [facility] Neurology Pain [address] [place] [phone] [place] [address] [place], [place] [phone] Follow up for pain Scheduled Procedures Name Priority Associated Diagnoses Date/Ti me LAPAROSCOPIC JEJUNOSTOMY Nausea and vomiting, unspecified vomiting type H/O bariatric surgery Jejunostomy tube fell out 04/10/2025 10:00 AM EDT documented as of this encounter Visit Diagnoses Not on filedocumented in this encounter Care Teams Tai Chi Instructor Relationship Specialty Start Date End Date Shlomo Hu II, MD 112 [facility] 110 [place] [address] PCP - General Internal Medicine 10/06/23 Jacob Sharp [address] [place] [id number] Referring 04/30/[address] [place] [phone] Registered Dietitian Nutrition 06/24/[address] [place], [place] [phone] Registered Dietitian Nutrition 08/27/23 Yuan Miller MD, PhD [address] [place], [place] [phone] Surgeon General Surgery 02/03/24 documented as of this encounter
--- OUTSIDE RECORDS SUMMARY | 2025-04-09 11:58 | XMS_ITS | Encounter Summary ---
Author Organization [facility] Address [address] [place] [address] Care Team Providers Care Sampling Theory Teacher Name Role Phone Shlomo Hu MD Primary Care Provider Jacob Sharp NURSING FACULTY Unavailable [phone] Thursday, Toya AUTOMOTIVE TECHNICIAN INSTRUCTOR Unavailable [phone] Shlomo Hu MD Unavailable [phone] Shante Kumar RUBY ON RAILS ENGINEER-TERRAZZO INSTALLER Unavailable Claribel Scott RN Unavailable Jess Marsh AUTOMOTIVE TECHNICIAN INSTRUCTOR Unavailable Esthela Tesfaye MANAGER TRAFFIC Unavailable [phone] Encounter Details Date Type Department Care Team (Late st Contact Info) Description 11/20/2023 Clinisync Result Encounter [facility] External Department Unsolicited Yanci Aguilar, [place] [address] [facility] 110 [place] [address] Social History Tobacco Use Types [...] week 03/01/2023 How often do you attend [facility] or mu-ism services? Patient declined 03/01/2023 Do you belong [...] Recorded Patient Health Questionnaire-2 Score 6 08/26/2023 [facility] [place] of Occupat ional Health - Occupational Stress [...] Office Visit [facility] [address] [facility] 120 [place] [address] Sonny Rodriguez DPM [address] [address] 05/04/2025 2:50 PM EDT Office Visit [facility] [address] [facility] 120 [place] [address] Sonny Rodriguez DPM [address] [address] documented as of this encounter Procedures Procedure Name Priority Date/Time Associated Diagnosis Comments US THYROID 11/20/2023 12:35 PM EST documented in this encounter Results * US thyroid (11/20/2023 12:35 PM EST) Anatomical Region Laterality Modality Head, Neck Ultrasound 11/20/2023 12:3 5 PM EST Narrative 11/20/2023 12:38 PM EST [address] [address] Ultrasound Report Signed Patient: MELINA TAVERAS MR#: [id number] : 1975 Acct:[id number] Age/Sex: 48 / F ADM Date: 11/20/23 Loc: US Attending Dr: YANCI AGUILAR Ordering Physician: YANCI AGUILAR Date of Service: 11/20/23 Procedure(s): US thyroid Accession Number(s): [id number] cc: SHLOMO HU ; YANCI AGUILAR [address] [address] Patient Name: MELINA TAVERAS MRN: [id number] date: 1975 Sex: F Assigned Patient Location: [place] Current Patient Location: [facility] Accession/Order Number: [id number] Exam Date: 11/20/2023 10:10 Report Date: 11/20/2023 [...] Signed By: 11/20/23 1238 DD/ 1235 TD/TT: Vending Machine Operator: Procedure Note Radiology, Radiologist, - 11/20/2023 [place] [address] Ultrasound Report Signed Patient: MELINA TAVERAS LMR#: [id number] : 1975Acct:[id number] Age/Sex: 48 / FADM Date: 11/20/23 Loc: US Attending Dr: YANCI AGUILAR Ordering Physician: YANCI AGUILAR Date of Service: 11/20/23 Procedure(s): US thyroid Accession Number(s): [id number] cc: SHLOMO HU ; YANCI AGUILAR [place] [id number] Patient Name: MELINA TAVERAS MRN: [facility]:[id number] date: 1975 Sex: F Assigned Patient Location: US Current Patient Location: RAD Accession/Order Number: [id number] Exam Date: 11/20/2023 10:10 Report Date: 11/20/2023 [...] M.D. Signed By:11/20/23 1238 DD/ 1235 TD/TT: Vending Machine Operator: us Yanci PORTER IMG US PROCEDURES Final Result documented in this encounter Visit Diagnoses Not on filedocumented in this encounter Additional Health Concerns Assessment Noted Time PHQ-9 Depression Total Score: 9 08/26/20 23 1:30 PM EST documented as of this encounter Care Teams Sampling Theory Teacher Relationship Specialty Start Date End Date Shlomo Hu MD 112 [place] [address] PCP - General Internal Medicine 02/15/23 [place] [address] [place] [address] PCP - [place] [employer] 08/14/23 Shlomo Hu MD [address] [facility] 110 [place] [address] PCP - [place] [employer] 05/15/2407/14 Shante Kumar APRN-TERRAZZO INSTALLER [address] [facility] 160 [place] [address] PCP - [place] [employer] 07/15/24 ThursdayToya LPN [address] [facility] 110 [place] [address] Licensed Practical Nurse Family Medicine 01/19/24 10/21/24 Claribel Scott, RN [address] [place] [address] Licensed Practical Nurse Family Medicine 10/21/24 12/06/24 Jess Marsh LPN [address] [facility] 110 [place] [address] 12/06/24 Esthela Tesfaye LSW [address] [place] [address] Meat Supervisor Family Medicine 02/03/25 documented as of this encounter
--- OUTSIDE RECORDS SUMMARY | 2025-04-09 11:58 | XMS_ITS | Encounter Summary ---
Author Organization [facility] Address [address] [facility] [place] [address] Care Team Providers Care Civil Engineering Project Manager Name Role Phone Shlomo Hu MD Primary Care Provider Jacob Sharp MAINTENANCE MECHANIC ENGINE Unavailable [phone] Thursday, Toya MANAGER DIVERSITY Unavailable [phone] Shlomo Hu MD Unavailable [phone] Shante Kumar THREAD DRAWER-BRAILLE PROOFREADER Unavailable Claribel Scott RN Unavailable [phone] Jess Marsh MANAGER DIVERSITY Unavailable Esthela Tesfaye JIG BUILDER HELPER Unavailable Encounter Details Date Type Department Care Team (Late st Contact Info) Description 11/19/[address] [place] [facility] 112 [facility] 110 [place] [address] Shlomo Hu MD 112 [facility] 110 [place], [place] [address] Social History Tobacco Use Types Packs/Day Years [...] How often do you attend [facility] or faith services? Patient declined 03/01/2023 Do you belong to any clubs o r organizations such as faith groups, unions, fraternal or athletic groups, or [...] Recorded Patient Health Questionnaire-2 Score 6 08/26/2023 [facility] [employer] [place] of Occupat ional Health - Occupational Stress [...] [address] [facility] 120 [place] [address] Sonny Rordiguez, DPM [address] [address] 05/04/2025 2:50 PM EDT Office Visit [facility] [address] [facility] 120 [place] [address] Sonny Rodriguez, DPM [address] [address] documented as of this encounter Visit Diagnoses Not on filedocumented in this encounter Additional Health Concerns Assessment Noted Time PHQ-9 Depression Total Score: 9 08/26/20 23 1:30 PM EST documented as of this encounter Care Teams Civil Engineering Project Manager Relationship Specialty Start Date End Date Shlomo Hu MD [address] [facility] 110 [place] [address] PCP - General Internal Medicine 02/15/23 [place] [address] [place] [address] PCP - [place] [employer] 08/14/23 Shlomo Hu MD [address] [facility] 110 [place] [address] PCP - [place] [employer] 05/15/2407/14 Shante Kumar APRN-BRAILLE PROOFREADER [address] [place] [address] PCP - [place] [employer] 07/15/24 5 Juan CarlosToya hernandez LPN [address] [place] [address] Licensed Practical Nurse Family Medicine 01/19/24 10/21/24 Claribel Scott, RN [address] [place], [place] [address] Licensed Practical Nurse Family Medicine 10/21/24 12/06/24 Jess Marsh, DUKE 112 [facility] 110 [place] [address] 12/06/24 Esthela Tesfaye, JIG BUILDER HELPER [address] [place] [address] Termite Helper Family Medicine 02/03/25 documented as of this encounter
--- OUTSIDE RECORDS SUMMARY | 2025-04-09 11:58 | XMS_ITS | Encounter Summary ---
Author Organization [facility] Address [address] [place] [address] Care Team Providers Care Senior It Business Analyst Name Role Phone Jacob Sharp Unavailable Rasheeda Newton RD Unavailable [phone] Unavailable [phone] Fritz HENDERSON MD, Shlomo B Primary Care Provider [phone] Yuan Miller MD, PhD Unavailable [phone] Source Comments In the event this information is protected by the Federal Confidentiality of Alcohol and Drug AbusePatient Records regulations: The Federal rules restrict any use of the information to criminally investigate or prosecute any alcohol or drug abuse patient.[facility] Reason for Visit * Reason Comments 04/03/2025 Encounter Details Date Type Department Care Team (Late st Contact Info) Description 03/29/2025 Patient Update General Surgery [address] [place], [place] [phone] Yenny Cast RN 04/03/2025 Social History Tobacco Use Types Packs/Day Years Used Date Smoking Tobacco: Never Smokeless Tobacco: Never Alcohol Use Standard Drinks/Week Comments Not Currently 0 (1 standard drink = 0.6 oz pur e alcohol) [facility] Utilities Answer Date Recorded In [...] any time in the past 12 [facility], were you homeless or living in a halfway (including now)? No 10/18/2024 Area Deprivation Index Answer Date Reagan rded National Score (1-100), lower number is lower ri sk 63 03/05/2023 State Score (1-10), lower number is lower risk 4 03/05/2023 Data from: https://www.neighborhoodatlas.medicine.[place].edu/. Last address used for calculation [address] [...] 10:00 AM EDT Hospital Encounter Admitting [address] [place] [id number] Yuan Miller MD, PhD [address] [place] [id number] Nausea and vomiting, unspecified vomiting type [R11.2], H/O bariatric surgery [Z98.84], Jejunostomy tube fell out [T85.528A] 04/10/2025 10:00 AM EDT - 04/10/2025 12:00 PM EDT Surgery Admitting [address] [place] [id number] Yuan Miller MD, PhD [address] [place] [phone] LAPAROSCOPIC JEJUNOSTOMY 04/19/2025 11:00 AM EDT [facility] Neurological Orthodoxy [address] [place] [phone] Joann Loera, JOSE.WORKSITE WELLNESS PRACTITIONER 9500 [place] [address] Cognitive movement issues 04/21/2025 8:30 AM EDT [facility] Nutrition Therapy [address] [address] Tiffany Banks, RD [address]00 [place] [address] f/u TF forula tolerance and hydration 05/18/2025 9:00 AM EDT [facility] General Surgery [address] [place] [address] Michael Mora PA-C [address]00 [place] [address] f/u with michael mora in 2 wks 05/29/2025 9:00 AM EDT [facility] Gastroenterology [address] [address] Johanna Martinez MD [employer] [address] [place] [address] 3 month follow up 06/28/2025 10:00 AM EDT [facility] Neurology Pain [address] [place] [address] [place] [address] [place], [place] [phone] Follow up for pain Scheduled Procedures Name Priority Associated Diagnoses Date/Ti me LAPAROSCOPIC JEJUNOSTOMY Nausea and vomiting, unspecified vomiting type H/O bariatric surgery Jejunostomy tube fell out 04/10/2025 10:00 AM EDT documented as of this encounter Visit Diagnoses Diagnosis Chronic nausea- Primary Nausea alone On enteral nutrition Other specified conditions influencing health status Nausea and vomiting, unspecified vomiting type H/O bariatric surgery Bariatric surgery status Jejunostomy tube fell out Mechanical complication of colostomy and enterostomy documented in this encounter Care Teams Senior It Business Analyst Relationship Specialty Start Date End Date Shlomo Hu II, MD [address] [place] [address] PCP - General Internal Medicine 10/06/23 Jacob Sharp [address] [place] [phone] Referring 04/30/[address] [place] [address] Registered Dietitian Nutrition 06/24/[address] [place] [address] Registered Dietitian Nutrition 08/27/23 Yuan Miller MD, PhD [address] [place] [address] Surgeon General Surgery 02/03/24 documented as of this encounter
--- OUTSIDE RECORDS SUMMARY | 2025-04-09 11:58 | XMS_ITS | Encounter Summary ---
Author Organization [facility] Address [address] [place] [address] Care Team Providers Care Content Specialist Name Role Phone Shlomo Hu MD Primary Care Provider [phone] Jacob Sharp AGRICULTURE RESEARCH DIRECTOR Unavailable [phone] Thursday, Toya MACHINE CAGE MAKER Unavailable [phone] Shlomo Hu MD Unavailable [phone] Shante Kumar ELECTRIC DETECTOR OPERATOR-PIPE FITTINGS MOLDER Unavailable Claribel Scott RN Unavailable Jess Marsh MACHINE CAGE MAKER Unavailable Esthela Tesfaye GRAVE DIGGER Unavailable [phone] Encounter Details Date Type Department Care [...] do you attend chur or advent services? Patient declined 03/01/2023 Do [...] Recorded Patient Health Questionnaire-2 Score 6 08/26/2023 [facility] of Occupat ional Health - [...] Upcoming Encounters Date Type Department Care Team ([facility] st Contact Info) Description 04/20/2025 3:00 PM EDT Office Visit [facility] 112 [facility] 120 [place] [address] Sonny Rodriguez, DPM [address] [address] 05/04/2025 2:50 PM EDT Office Visit [facility] 112 [facility] 120 [place] [address] Sonny Rodriguez, DPM [address] [address] documented as of this encounter Procedures Procedure Name Priority Date/Time Associated Diagnosis Comments XR CHEST 2V 11/20/2023 11:07 AM EST documented in this encounter Results * XR CHEST 2V (11/20/2023 11:07 AM EST) Anatomical Region Laterality Modality Other 11/20/2023 11:0 7 AM EST Narrative 11/20/2023 11:10 AM EST [address] [address] XRay Report Signed Patient: MELINA TAVERAS MR#: [id number] : 1975 Acct:[id number] Age/Sex: 48 / F ADM Date: 11/20/23 Loc: [facility] Attending Dr: PHIL HECTOR Ordering Physician: PHIL HECTOR Date of Service: 11/20/23 Procedure(s): XR chest 2V Accession Number(s): [id number] cc: SHLOMO HU ; PHIL HECTOR [address] [address] Patient Name: MELINA TAVERAS MRN: [id number] date: 1975 Sex: F Assigned Patient Location: [facility] Current Patient Location: [place] Accession/Order Number: [id number] Exam Date: 11/20/2023 09:42 Report Date: 11/20/2023 [...] Signed By: 11/20/23 1110 DD/ 1107 TD/TT: Unit Clerk: Procedure Note Radiology, Radiologist, MD - 11/20/2023 [place] [address] XRay Report Signed Patient: MELINA TAVERAS LMR#: [id number] : 1975Acct:[id number] Age/Sex: 48 / FADM Date: 11/20/23 Loc: [facility] Attending Dr: PHIL HECTOR Ordering Physician: PHIL HECTOR Date of Service: 11/20/23 Procedure(s): XR chest 2V Accession Number(s): [id number] cc: SHLOMO HU ; PHIL HECTOR [address] [place] [id number] Patient Name: MELINA TAVERAS MRN: [id number] date: 1975 Sex: F Assigned Patient Location: [facility] Current Patient Location: Accession/Order Number: [id number] Exam Date: 11/20/2023 09:42 Report Date: 11/20/2023 [...] M.D. Signed By:11/20/23 1110 DD/ 1107 TD/TT: Unit Clerk: us Generic External Data Provider [facility] Final Result documented in this encounter Visit Diagnoses Not on filedocumented in this encounter Additional Health Concerns Assessment Noted Time PHQ-9 Depression Total Score: 9 08/26/20 23 1:30 PM EST documented as of this encounter Care Teams Content Specialist Relationship Specialty Start Date End Date Shlomo Hu MD [address] [place] [address] PCP - General Internal Medicine 02/15/23 [place] [address] [place] [address] PCP - [place] [employer] 08/14/23 Shlomo Hu MD [address] [place] [address] [place] [address] PCP - [place] [employer] 05/15/2407/14 Shante Kumar APRN-PIPE FITTINGS MOLDER [address] [place] [address] PCP - [place] [employer] 07/15/24 ThursdayToya LPN [address] [place] [address] Licensed Practical Nurse Family Medicine 01/19/24 10/21/24 Claribel Scott, PIETRO [address] [facility] [place] [address] Licensed Practical Nurse Family Medicine 10/21/24 12/06/24 Jess Marsh LPN [address] [place] [address] 12/06/24 Esthela Tesfaye, GRAVE DIGGER [address] [place], [place] [id number] Public Weigher Family Medicine 02/03/25 documented as of this encounter
--- OUTSIDE RECORDS SUMMARY | 2025-04-09 11:58 | XMS_ITS | Encounter Summary ---
Author Organization [facility] Address [address] [place], [place] [address] Care Team Providers Care Flexo Folder Gluer Operator Name Role Phone Jacob Sharp Unavailable Rasheeda Newton RD Unavailable [phone] Unavailable [phone] Fritz HENDERSON MD, Shlomo B Primary Care Provider [phone] Yuan Miller MD, PhD Unavailable [phone] Source Comments In the event this information is protected by the Federal Confidentiality of Alcohol and Drug AbusePatient Records regulations: The Federal rules restrict any use of the information to criminally investigate or prosecute any alcohol or drug abuse patient.[facility] Encounter Details Date Type Department Care Team (Latest Contact Info) Description 03/30/2025 Travel Social History Tobacco Use Types Packs/Day Years Used Date Smoking Tobacco: Never Smokeless Tobacco: Never Alcohol Use Standard Drinks/Week Comments Not Currently 0 (1 standard drink = 0.6 oz pur e alcohol) [facility] Utilities Answer Date Recorded In the past 12 months has Invol[employer] electric, gas, oil, or water company threatened [...] is lower risk 4 03/05/2023 Data from: https://www.neighborhoodatlas.[facility]/. Last address used for calculation [address] [...] Travel History Travel Start Travel End [place] 03/18/2025 03/26/2025 documented as of this encounter [...] 04/10/2025 10:00 AM EDT Hospital Encounter Admitting [address] [place] [address] Yuan Miller MD, PhD 9500 [place] [address] Nausea and vomiting, unspecified vomiting type [R11.2], H/O bariatric surgery [Z98.84], Jejunostomy tube fell out [T85.528A] 04/10/2025 10:00 AM EDT - 04/10/2025 12:00 PM EDT Surgery Admitting 9500 [place] [address] Yuan Miller MD, PhD [address] [place] [id number] LAPAROSCOPIC JEJUNOSTOMY 04/19/2025 11:00 AM EDT [facility] Neurological [place] [address] [place], [place] [phone] Joann Loera APRN.LONGWALL FOREMAN 9500 [place] [address] Cognitive movement issues 04/21/2025 8:30 AM EDT [facility] Nutrition Therapy [address] [place] [phone] Tiffany Banks, RD [address] [place] [id number] f/u TF forula tolerance and hydration 05/18/2025 9:00 AM EDT [facility] General Surgery [address] [place] [phone] Michael Mora PA-C 9500 [place] [address] f/u with michael mora in 2 wks 05/29/2025 9:00 AM EDT [facility] Gastroenterology [address] [place] [phone] Johanna Martinez MD [facility] [address] [place], [place] [address] 3 month follow up 06/28/2025 10:00 AM EDT [facility] Neurology Pain [address] [place] [phone] [place] [address] [place] [id number] Follow up for pain Scheduled Procedures Name Priority Associated Diagnoses Date/Ti me LAPAROSCOPIC JEJUNOSTOMY Nausea and vomiting, unspecified vomiting type H/O bariatric surgery Jejunostomy tube fell out 04/10/2025 10:00 AM EDT documented as of this encounter Visit Diagnoses Not on filedocumented in this encounter Care Teams Flexo Folder Gluer Operator Relationship Specialty Start Date End Date Shlomo Hu II, MD 112 [facility] 110 [place] [address] PCP - General Internal Medicine 10/06/23 Jacob Sharp [address] [place] [address] Referring 04/30/[address] [address] Registered Dietitian Nutrition 06/24/[address] [facility] [place] [phone] Registered Dietitian Nutrition 08/27/23 Yuan Miller MD, PhD [address] [place] [phone] Surgeon General Surgery 02/03/24 documented as of this encounter
--- OUTSIDE RECORDS SUMMARY | 2025-04-09 11:59 | XMS_ITS | Encounter Summary ---
Author Organization [facility] Address [address] [place] [address] Care Team Providers Care Family Coach Name Role Phone Jacob Sharp Unavailable Rasheeda Newton RD Unavailable [phone] Unavailable [phone] Fritz HENDERSON MD, Shlomo B Primary Care Provider [phone] Yuan Miller MD, PhD Unavailable [phone] Source Comments In the event this information is protected by the Federal Confidentiality of Alcohol and Drug AbusePatient Records regulations: The Federal rules restrict any use of the information to criminally investigate or prosecute any alcohol or drug abuse patient.[facility] Encounter Details Date Type Department Care Team (Late st Contact Info) Description 07/05/2024 Get Medical Advice Neurology OT Outpatient [facility] [address] [place] [address] Susan Beach, OT/L [address] [place] [address] Transfer of care Social History Tobacco Use Types Packs/Day Years Used Date Smoking Tobacco: Never Smokeless Tobacco: Never Alcohol Use Standard Drinks/Week Comments Not Currently 0 (1 standard drink = 0.6 oz pur e alcohol) [facility] Utilities Answer Date Recorded In the past [...] living in a assisted (including now)? No 07/08/2024 Area Deprivation Index [...] 2:13 PM EDT Chelle Connell, PIETRO * Are you blind or do you [...] 02/21/2024 2:13 PM EDT Chelle Connell, PIETRO documented in this encounter Plan of Treatment Upcoming Encounters Date Type Department Care Team (Latest Contact Info) Description 04/10/2025 10:00 AM EDT Hospital Encounter Admitting 9500 [place] [address] Yuan Miller MD, PhD [address] [place] [phone] Nausea and vomiting, unspecified vomiting type [R11.2], H/O bariatric surgery [Z98.84], Jejunostomy tube fell out [T85.528A] 04/10/2025 10:00 AM EDT - 04/10/2025 12:00 PM EDT Surgery Admitting [address] [place] [phone] Yuan Miller MD, PhD [address] [place] [phone] LAPAROSCOPIC JEJUNOSTOMY 04/19/2025 11:00 AM EDT [facility] Neurological Episcopal [address] [place] 1028706 Joann Loera APRN.UTILITY PORTER [address] [place] [phone] Cognitive movement issues 04/21/2025 8:30 AM EDT [facility] Nutrition Therapy [address] [address] Tiffany Banks, RD [address] [place] [phone] f/u TF forula tolerance and hydration 05/18/2025 9:00 AM EDT [facility] General Surgery 9300 [place] [address] Michael Mora PA-C 9500 [place] [address] f/u with michael mora in 2 wks 05/29/2025 9:00 AM EDT [facility] Gastroenterology [address] [place] [phone] Jhoanna Martinez MD [facility] [address] [place] 1005406 3 month follow up 06/28/2025 10:00 AM EDT [facility] Neurology Pain [address] [place], [place] [phone] [place] [address] [place], [place] [phone] Follow up for pain Scheduled Procedures Name [...] documented as of this encounter Care Teams Family Coach Relationship Specialty Start Date End Date Shlomo Hu II, MD 112 [facility] 110 [place] [address] PCP - General Internal Medicine 10/06/23 Jacob Sharp [address] [place] [phone] Referring 04/30/[address] [place] [phone] Registered Dietitian Nutrition 06/24/[address] 950 [place] [address] Registered Dietitian Nutrition 08/27/23 Yuan Miller MD, PhD 9500 [place], [place] [phone] Surgeon General Surgery 02/03/24 documented as of this encounter
--- OUTSIDE RECORDS SUMMARY | 2025-04-09 11:59 | XMS_ITS | Encounter Summary ---
Author Organization [facility] Address [address] [facility] [place] [address] Care Team Providers Care Power Ballast Machine Operator Name Role Phone Shlomo Hu MD Primary Care Provider Jacob Sharp ASSOCIATE DIRECTOR REGULATORY AFFAIRS Unavailable [phone] Thursday, Toya STAFF VETERINARIAN Unavailable [phone] Shlomo Hu MD Unavailable [phone] Shante Kumar COMMUNITY DEVELOPMENT MANAGER-MANAGER INCOME TAX Unavailable Claribel Scott RN Unavailable [phone] Jess Marsh STAFF VETERINARIAN Unavailable Esthela Tesfaye EMERGENCY VETERINARY ASSISTANT Unavailable [phone] Encounter Details Date Type Department Care Team (Late st Contact Info) Description 09/16/2023 Abstract [facility] 112 [facility] 110 [place] [address] Shlomo Hu MD 112 [facility] 110 [place], [place] [phone] Social History Tobacco Use Types Packs/Day Years [...] do you attend [facility] or jew services? Patient declined 03/01/2023 Do [...] Recorded Patient Health Questionnaire-2 Score 6 08/26/2023 [facility] [place] of Occupat ional Health - Occupational Stress [...] [address] [facility] [address] [place] [address] Sonny Rodriguez, DPM [address] [address] 05/04/2025 2:50 PM EDT Office Visit [facility] [address] [facility] 120 [place] [phone] Sonny Rodriguez, DPM [address] [address] documented as of this encounter Visit Diagnoses Not on filedocumented in this encounter Additional Health Concerns Assessment Noted Time PHQ-9 Depression Total Score: 9 08/26/20 23 1:30 PM EST documented as of this encounter Care Teams Power Ballast Machine Operator Relationship Specialty Start Date End Date Shlomo Hu MD [address] [facility] 110 [place] [address] PCP - General Internal Medicine 02/15/23 [place] [address] [place] [phone] PCP - [place] [employer] 08/14/23 Shlomo Hu MD [address] [facility] 110 [place] [address] PCP - [place] [employer] 05/15/2407/14 Shante Kumar APRN-MANAGER INCOME TAX [address] [facility] 160 [place] [address] PCP - [place] [employer] 07/15/24 5 ThursdayToya LPN [address] [place] [address] Licensed Practical Nurse Family Medicine 01/19/24 10/21/24 Claribel Scott, RN [address] [place] [address] Licensed Practical Nurse Family Medicine 10/21/24 12/06/24 Jess Marsh LPN [address] [facility] [address] [place] [address] 12/06/24 Esthela Tesfaye, EMERGENCY VETERINARY ASSISTANT [address] [place] [address] Frontload Driver Family Medicine 02/03/25 documented as of this encounter
--- OUTSIDE RECORDS SUMMARY | 2025-04-09 11:59 | XMS_ITS | Encounter Summary ---
Author Organization [facility] Address [address] [place] [address] Care Team Providers Care Drugless Doctor Name Role Phone Jacob Sharp Unavailable Rasheeda Newton RD Unavailable [phone] Unavailable [phone] Fritz HENDERSON MD, Shlomo Momin Primary Care Provider [phone] Yuan Miller MD, PhD Unavailable [phone] Source Comments In the event this information is protected by the Federal Confidentiality of Alcohol and Drug AbusePatient Records regulations: The Federal rules restrict any use of the information to criminally investigate or prosecute any alcohol or drug abuse patient.[facility] Encounter Details Date Type Department Care Team (Late st Contact Info) Description 06/02/2024 Patient Nhg Internal Medicine [place] [address] [place] [id number] Provider, Ccdenice 07/29/2024 Appointment Social History Tobacco Use Types [...] is lower risk 4 03/05/2023 Data from: https://www.neighborhoodatlas.medicine.[facility].edu/. Last address used for calculation [address] [...] 04/10/2025 10:00 AM EDT Hospital Encounter Admitting [address] [place] [address] Yuan Miller MD, PhD [address] [place], [place] [phone] Nausea and vomiting, unspecified vomiting type [R11.2], H/O bariatric surgery [Z98.84], Jejunostomy tube fell out [T85.528A] 04/10/2025 10:00 AM EDT - 04/10/2025 12:00 PM EDT [facility] [place] [address] Yuan Miller MD, PhD [address] [place] [phone] LAPAROSCOPIC JEJUNOSTOMY 04/19/2025 11:00 AM EDT [facility] Neurological Zoroastrianism [address] [place] [phone] Joann Loera APRN.HOME CARE ASSISTANT [address] [place] [phone] Cognitive movement issues 04/21/2025 8:30 AM EDT [facility] Nutrition Therapy [address] [place] [phone] Tiffany Banks, RD 9500 [place] [address] f/u TF forula tolerance and hydration 05/18/2025 9:00 AM EDT [facility] General Surgery 93 [place] [address] Michael Mora PA-C 9500 [place] [address] f/u with michael mora in 2 wks 05/29/2025 9:00 AM EDT [facility] Gastroenterology 2048 [place] [address] Johanna Martinez MD [facility] [address] [place], [place] [address] 3 month follow up 06/28/2025 10:00 AM EDT [facility] Neurology Pain [address] [place] [phone] [place] [address] [place] [phone] Follow up for pain Scheduled Procedures Name [...] documented as of this encounter Care Teams Drugless Doctor Relationship Specialty Start Date End Date Shlomo Hu II, MD [address] [place] [address] [place] [address] PCP - General Internal Medicine 10/06/23 Jacob Sharp [address] [place] [address] Referring 04/30/[address] [place] [address] Registered Dietitian Nutrition 06/24/[address]326 [place] [address] Registered Dietitian Nutrition 08/27/23 Yuan Miller MD, PhD 7632 [place] [address] Surgeon General Surgery 02/03/24 documented as of this encounter
--- OUTSIDE RECORDS SUMMARY | 2025-04-09 11:59 | XMS_ITS | Encounter Summary ---
Author Organization [facility] Address [address] [place] [address] Care Team Providers Care Aviation Safety Officer Name Role Phone Jacob Sharp Unavailable Rasheeda Newton RD Unavailable [phone] Unavailable [phone] Fritz HENDERSON MD, Shlomo Momin Primary Care Provider [phone] Yuan Miller MD, PhD Unavailable [phone] Source Comments In the event this information is protected by the Federal Confidentiality of Alcohol and Drug AbusePatient Records regulations: The Federal rules restrict any use of the information to criminally investigate or prosecute any alcohol or drug abuse patient.[facility] Encounter Details Date Type Department Care Team (Late st Contact Info) Description 07/04/2024 Patient Msg Neurology [address] [place], [place] [phone] Provider, Ccf Ketamine infusions Social History Tobacco [...] risk 4 03/05/2023 Data from: https://www.neighborhoodatlas.medicine.[facility]/. Last address used for calculation [...] 10:00 AM EDT Hospital Encounter Admitting 9500 [place] [address] Yuan Miller MD, PhD [address] [place] [phone] Nausea and vomiting, unspecified vomiting type [R11.2], H/O bariatric surgery [Z98.84], Jejunostomy tube fell out [T85.528A] 04/10/2025 10:00 AM EDT - 04/10/2025 12:00 PM EDT Surgery Admitting 9500 [place] [address] Yuan Miller MD, PhD [address] [place] [phone] LAPAROSCOPIC JEJUNOSTOMY 04/19/2025 11:00 AM EDT [facility] Neurological [place] [address] [place] [address] Joann Loera APRN.REGISTRATION REP [address] [place] [phone] Cognitive movement issues 04/21/2025 8:30 AM EDT [facility] Nutrition Therapy [address] [address] Tiffany Banks, RD 9500 [place] [address] f/u TF forula tolerance and hydration 05/18/2025 9:00 AM EDT [facility] General Surgery 9299 [place] [address] Michael Mora PA-C 9500 [place] [address] f/u with michael mora in 2 wks 05/29/2025 9:00 AM EDT [facility] Gastroenterology [address] [address] Johanna Martinez MD [facility] [address] [place] [address] 3 month follow up 06/28/2025 10:00 AM EDT [facility] Neurology Pain [address] [place] [address] [place] [address] [place], [place] [phone] Follow up for pain Scheduled Procedures Name [...] documented as of this encounter Care Teams Aviation Safety Officer Relationship Specialty Start Date End Date Shlomo Hu II, MD 112 [facility] 110 [place] [address] PCP - General Internal Medicine 10/06/23 Jacob Sharp [address] [place] [address] Referring 04/30/[address] [place] [phone] Registered Dietitian Nutrition 06/24/[address] [facility]0 [place] [phone] Registered Dietitian Nutrition 08/27/23 Yuan Miller MD, PhD [address] [place] [phone] Surgeon General Surgery 02/03/24 documented as of this encounter
--- OUTSIDE RECORDS SUMMARY | 2025-04-09 11:59 | XMS_ITS | Encounter Summary ---
Author Organization [facility] Address [address] [place] [address] Care Team Providers Care Barrel Bander Name Role Phone Jacob Sharp Unavailable Rasheeda Newton RD Unavailable [phone] Unavailable [phone] Fritz HENDERSON MD, Shlomo Momin Primary Care Provider [phone] Yuan Miller MD, PhD Unavailable [phone] Source Comments In the event this information is protected by the Federal Confidentiality of Alcohol and Drug AbusePatient Records regulations: The Federal rules restrict any use of the information to criminally investigate or prosecute any alcohol or drug abuse patient.[facility] Encounter Details Date Type Department Care Team (Late st Contact Info) Description 07/05/2024 Patient Msg Neurology [address] [place], [place] [phone] Provider, Ccf Ketamine Social History Tobacco Use Types Packs/Day Years Used Date Smoking Tobacco: Never Smokeless Tobacco: Never Alcohol Use Standard Drinks/Week Comments Not Currently 0 (1 standard drink = 0.6 oz pur e alcohol) [facility] Utilities Answer Date Recorded In the past 12 months has th e [employer], gas, oil, or water [employer]BE Security Master threatened to shut off services in your [...] is lower risk 4 03/05/2023 Data from: https://www.neighborhoodatlas.medicine.[facility]/. Last address used for calculation [address] 03/05/2023 Comments No [...] 10:00 AM EDT Hospital Encounter Admitting 9500 [place] [address] Yuan Miller MD, PhD [address] [place] [phone] Nausea and vomiting, unspecified vomiting type [R11.2], H/O bariatric surgery [Z98.84], Jejunostomy tube fell out [T85.528A] 04/10/2025 10:00 AM EDT - 04/10/2025 12:00 PM EDT Surgery Admitting 9500 [place] [address] Yuan Miller MD, PhD [address] [place] [phone] LAPAROSCOPIC JEJUNOSTOMY 04/19/2025 11:00 AM EDT [facility] Neurological Holiness [address] [place] [address] Joann Loera APRN.AIRPLANE FIRST OFFICER [address] [place] [phone] Cognitive movement issues 04/21/2025 8:30 AM EDT [facility] Nutrition Therapy [address] [address] Tiffany Banks, RD 9500 [place] [address] f/u TF forula tolerance and hydration 05/18/2025 9:00 AM EDT [facility] General Surgery 9299 [place] [address] Michael Mora PA-C 9500 [place] [address] f/u with michael mora in 2 wks 05/29/2025 9:00 AM EDT [facility] Gastroenterology [address] [address] Johanna Martinez MD [facility] [address] [place], [place] [address] 3 month follow up 06/28/2025 10:00 AM EDT [facility] Neurology Pain [address] [place] [address] [place] [address] [place], [place] [phone] Follow up for pain Scheduled Procedures Name [...] documented as of this encounter Care Teams Barrel Bander Relationship Specialty Start Date End Date Shlomo Hu II, MD 112 [facility] 110 [place] [address] PCP - General Internal Medicine 10/06/23 Jacob Sharp [address] [place] [phone] Referring 04/30/[address] [place] [address] Registered Dietitian Nutrition 06/24/[address]00 [place] [address] Registered Dietitian Nutrition 08/27/23 Yuan Miller MD, PhD 9500 [place], [place] [phone] Surgeon General Surgery 02/03/24 documented as of this encounter
--- OUTSIDE RECORDS SUMMARY | 2025-04-09 11:59 | XMS_ITS | Encounter Summary ---
Author Organization [facility] Address [facility]9 [place] [address] Care Team Providers Care Toe Former Name Role Phone Jacob Sharp Unavailable AmanStevera TRUONG Unavailable [phone] Unavailable [phone] Fritz HENDERSON MD, Shlomo Momin Primary Care Provider [phone] Yuan Miller MD, PhD Unavailable [phone] Source Comments In the event this information is protected by the Federal Confidentiality of Alcohol and Drug AbusePatient Records regulations: The Federal rules restrict any use of the information to criminally investigate or prosecute any alcohol or drug abuse patient.[facility] Encounter Details Date Type Department Care Team (Late st Contact Info) Description 07/20/2024 Get Medical Advice [facility] [address] [place] [phone] Ary Mao MD, PhD [address] [place] [address] Stiffiness and pain Social History Tobacco Use Types Packs/Day Years Used Date Smoking Tobacco: Never Smokeless Tobacco: Never Alcohol Use Standard Drinks/Week Comments Not Currently 0 (1 standard drink = 0.6 oz pur e alcohol) [facility] Utilities Answer Date Recorded In the [...] in a long term (including now)? No 07/08/2024 Area Deprivation Index Answer Date Reagan rded National Score (1-100), lower number is lower ri sk 63 03/05/2023 State Score (1-10), lower number is lower risk 4 03/05/2023 Data from: https://www.neighborhoodatlas.[facility]/. Last address used for calculation [...] 10:00 AM EDT Hospital Encounter Admitting [address] [place] [phone] Yuan Miller MD, PhD [address] [place] [phone] Nausea and vomiting, unspecified vomiting type [R11.2], H/O bariatric surgery [Z98.84], Jejunostomy tube fell out [T85.528A] 04/10/2025 10:00 AM EDT - 04/10/2025 12:00 PM EDT Surgery Admitting [address] [place] [phone] Yuan Miller MD, PhD [address] [place] [phone] LAPAROSCOPIC JEJUNOSTOMY 04/19/2025 11:00 AM EDT [facility] Neurological Orthodoxy 9300 [place] [address] Joann Loera APRN.SENIOR MANUFACTURING TECHNICIAN 9500 [place] [address] Cognitive movement issues 04/21/2025 8:30 AM EDT [facility] Nutrition Therapy [address] [address] Tiffany Banks, RD [address] [place] [phone] f/u TF forula tolerance and hydration 05/18/2025 9:00 AM EDT [facility] General Surgery 9300 [place] [address] Michael Mora PA-C [address] [place] [address] f/u with michael mora in 2 wks 05/29/2025 9:00 AM EDT [facility] Gastroenterology [address] [place] [phone] Johanna Martinez MD [facility]3] [address] [place] 7574406 3 month follow up 06/28/2025 10:00 AM EDT [facility] Neurology Pain [address] [place] [phone] [place] [address] [place] [phone] Follow up for pain Scheduled Procedures Name [...] documented as of this encounter Care Teams Toe Former Relationship Specialty Start Date End Date Shlomo Hu II, MD 112 [facility] 110 [place] [address] PCP - General Internal Medicine 10/06/23 Jacob Sharp [address] [place] [phone] Referring 04/30/[address] [place] [phone] Registered Dietitian Nutrition 06/24/[address] [facility] [place] [address] Registered Dietitian Nutrition 08/27/23 Yuan Miller MD, PhD [address] [place] [phone] Surgeon General Surgery 02/03/24 documented as of this encounter
--- OUTSIDE RECORDS SUMMARY | 2025-04-09 11:59 | XMS_ITS | Encounter Summary ---
Author Organization [facility] Address [address] [place] [address] Care Team Providers Care Work From Home Name Role Phone Jacob Sharp Unavailable Rasheeda Newton RD Unavailable [phone] Unavailable [phone] Fritz HENDERSON MD, Shlomo Momin Primary Care Provider [phone] Yuan Miller MD, PhD Unavailable [phone] Source Comments In the event this information is protected by the Federal Confidentiality of Alcohol and Drug AbusePatient Records regulations: The Federal rules restrict any use of the information to criminally investigate or prosecute any alcohol or drug abuse patient.[facility] Encounter Details Date Type Department Care Team (Late st Contact Info) Description 06/20/2024 Patient Msg General Surgery [address] [phone] Provider, Ccf appointment has been scheduled for [...] is lower risk 4 03/05/2023 Data from: https://www.neighborhoodatlas.medicine.[facility].edu/. Last address used for calculation [address] [...] Travel History Travel Start Travel End [place] 03/18/2025 03/26/2025 documented as of this encounter [...] 04/10/2025 10:00 AM EDT Hospital Encounter Admitting [address] [place] [address] Yuan Miller MD, PhD [address] [place] [address] Nausea and vomiting, unspecified vomiting type [R11.2], H/O bariatric surgery [Z98.84], Jejunostomy tube fell out [T85.528A] 04/10/2025 10:00 AM EDT - 04/10/2025 12:00 PM EDT Surgery Admitting [facility] [place] [address] Yuan Miller MD, PhD [address] [phone] LAPAROSCOPIC JEJUNOSTOMY 04/19/2025 11:00 AM EDT [facility] Neurological Methodist [address] [phone] Joann Loera APRN.COUNSELOR MARRIAGE AND FAMILY [address] [place] [address] Cognitive movement issues 04/21/2025 8:30 AM T [facility] Nutrition Therapy [address] [phone] Tiffany Banks, RD [address] [phone] f/u TF forula tolerance and hydration 05/18/2025 9:00 AM T [facility] General Surgery [address] [phone] Michael Mora PA-C [address] [place] [address] f/u with michael mora in 2 wks 05/29/2025 9:[address] [facility] Gastroenterology [address] 1702106 Johanna Martinez MD [facility] [address] [place], [place] 6[address] 3 month follow up 06/28/2025 10:00 AM T [facility] Neurology Pain [address] [phone] [place] [address] [address] [id number] Follow up for pain Scheduled Procedures Name [...] as of this encounter Care Teams Work From Home Relationship Specialty Start Date End Date Shlomo Hu II, MD [address] [place] [address] PCP - General Internal Medicine 10/06/23 Jacob Sharp [address] [place] [address] Referring 04/30/[address] [place] [address] Registered Dietitian Nutrition 06/24/[address] [place] [address] Registered Dietitian Nutrition 08/27/23 Yuan Miller MD, PhD [address] [place] [address] Surgeon General Surgery 02/03/24 documented as of this encounter
--- OUTSIDE RECORDS SUMMARY | 2025-04-09 11:59 | XMS_ITS | Encounter Summary ---
Author Organization [facility] Address [address] [place] [address] Care Team Providers Care Steel Shot Header Operator Name Role Phone Jacob Sharp Unavailable Rasheeda Newton RD Unavailable [phone] Unavailable [phone] Fritz HENDERSON MD, Shlomo Momin Primary Care Provider [phone] Yuan Miller MD, PhD Unavailable [phone] Source Comments In the event this information is protected by the Federal Confidentiality of Alcohol and Drug AbusePatient Records regulations: The Federal rules restrict any use of the information to criminally investigate or prosecute any alcohol or drug abuse patient.[facility] Encounter Details Date Type Department Care Team (Late st Contact Info) Description 05/18/2024 Patient Msg Neurology [address] [place], [place] [phone] Provider, Ccf Ketamine infusions Social History Tobacco [...] in a jail (including now)? No 02/16/2024 Area Deprivation Index Answer Date Reagan rded National Score (1-100), lower number is lower ri sk 63 03/05/2023 State Score (1-10), lower number is lower risk 4 03/05/2023 Data from: https://www.neighborhoodatlas.medicine.[facility].edu/. Last address used for calculation [address] 03/05/2023 Comments No [...] 04/10/2025 10:00 AM EDT Hospital Encounter Admitting [facility]0 [place] [address] Yuan Miller MD, PhD [address] [place] [address] Nausea and vomiting, unspecified vomiting type [R11.2], H/O bariatric surgery [Z98.84], Jejunostomy tube fell out [T85.528A] 04/10/2025 10:00 AM EDT - 04/10/2025 12:00 PM EDT Surgery Admitting [facility]0 [place] [address] Yuan Miller MD, PhD [address] [phone] LAPAROSCOPIC JEJUNOSTOMY 04/19/2025 11:00 AM EDT [facility] Neurological Jainism [address] [phone] Joann Loera APRN.SKEIN DYER [address] [place] [address] Cognitive movement issues 04/21/2025 8:30 AM EDT [facility] Nutrition Therapy [address] [phone] Tiffany Banks, RD [address] [place] [address] f/u TF forula tolerance and hydration 05/18/2025 9:00 AM EDT [facility] General Surgery [address] [phone] Michael Mora PA-C [address] [place] [address] f/u with michael mora in 2 wks 05/29/2025 9:00 AM EDT [facility] Gastroenterology [address] [phone] Johanna Martinez MD [facility] [address] [place], [place] [address] 3 month follow up 06/28/2025 10:00 AM EDT [facility] Neurology Pain [address] [phone] [place] [address] [address] [phone] Follow up for pain Scheduled Procedures Name [...] as of this encounter Care Teams Steel Shot Header Operator Relationship Specialty Start Date End Date Shlomo Hu II, MD [address] [facility] [address] [place] [address] PCP - General Internal Medicine 10/06/23 Jacob Sharp [address] [place] [address] Referring 04/30/[address] [place] [phone] Registered Dietitian Nutrition 06/24/[address] [facility]8 [place] [address] Registered Dietitian Nutrition 08/27/23 Yuan Miller MD, PhD [address] [place] [address] Surgeon General Surgery 02/03/24 documented as of this encounter
--- OUTSIDE RECORDS SUMMARY | 2025-04-09 11:59 | XMS_ITS | Encounter Summary ---
Author Organization [facility] Address [address] [place] [address] Care Team Providers Care Care Technician Name Role Phone Jacob Sharp Unavailable Rasheeda Newton RD Unavailable [phone] Unavailable [phone] Fritz HENDERSON MD, Shlomo Momin Primary Care Provider [phone] Yuan Miller MD, PhD Unavailable [phone] Source Comments In the event this information is protected by the Federal Confidentiality of Alcohol and Drug AbusePatient Records regulations: The Federal rules restrict any use of the information to criminally investigate or prosecute any alcohol or drug abuse patient.[facility] Encounter Details Date Type Department Care Team (Late st Contact Info) Description 06/29/2024 Patient Msg Neurology [address] [place], [place] [phone] Provider, Ccdenice Ketamine instructions Social History Tobacco [...] lower risk 4 03/05/2023 Data from: https://www.neighborhoodatlas.medicine.[facility].edu/. Last address used for calculation [address] [...] 04/10/2025 10:00 AM EDT Hospital Encounter Admitting [facility]0 [place] [address] Yuan Miller MD, PhD [address] [place] [address] Nausea and vomiting, unspecified vomiting type [R11.2], H/O bariatric surgery [Z98.84], Jejunostomy tube fell out [T85.528A] 04/10/2025 10:00 AM EDT - 04/10/2025 12:00 PM EDT Surgery Admitting [facility]0 [place] [address] Yuan Miller MD, PhD [address] [phone] LAPAROSCOPIC JEJUNOSTOMY 04/19/2025 11:00 AM EDT [facility] Neurological Islam [address] [phone] Joann Loera APRN.HOGSHEAD STRIPPER [address] [place] [address] Cognitive movement issues 04/21/2025 8:30 AM EDT [facility] Nutrition Therapy [address] [phone] Tiffany Banks, RD 9500 [place] [address] f/u TF forula tolerance and hydration 05/18/2025 9:00 AM EDT [facility] General Surgery [address] [phone] Michael Mora PA-C 9500 [place] [address] f/u with michael mora in 2 wks 05/29/2025 9:00 AM EDT [facility] Gastroenterology [address] [phone] Johanna Martinez MD [facility] [address] [place], [place] [phone] 3 month follow up 06/28/2025 10:00 AM EDT [facility] Neurology Pain [address] [phone] [place] [address] [address] [phone] Follow up for pain Scheduled Procedures Name [...] documented as of this encounter Care Teams Care Technician Relationship Specialty Start Date End Date Shlomo Hu II, MD [address] [facility] 110 [place] [address] PCP - General Internal Medicine 10/06/23 Jacob Sharp [address] [place] [address] Referring 04/30/[address] [place] [phone] Registered Dietitian Nutrition 06/24/[address] [facility]9 [place] [address] Registered Dietitian Nutrition 08/27/23 Yuan Miller MD, PhD [address] [place] [address] Surgeon General Surgery 02/03/24 documented as of this encounter
--- OUTSIDE RECORDS SUMMARY | 2025-04-09 11:59 | XMS_ITS | Encounter Summary ---
Author Organization [facility] Address [facility] [place] [address] Care Team Providers Care New Autos Delivery Driver Name Role Phone Jacob Sharp Unavailable Rasheeda Newton RD Unavailable [phone] Unavailable [phone] Fritz HENDERSON MD, Shlomo B Primary Care Provider [phone] Yuan Miller MD, PhD Unavailable [phone] Source Comments In the event this information is protected by the Federal Confidentiality of Alcohol and Drug AbusePatient Records regulations: The Federal rules restrict any use of the information to criminally investigate or prosecute any alcohol or drug abuse patient.[facility] Encounter Details Date Type Department Care Team (Late st Contact Info) Description 07/18/2024 Get Medical Advice Neurology Pain [address] [place] [address] [place] [address] [place] [address] Pain Social History Tobacco Use Types Packs/Day Years Used Date Smoking Tobacco: Never Smokeless Tobacco: Never Alcohol Use Standard Drinks/Week Comments Not Currently 0 (1 standard drink = 0.6 oz pur e alcohol) [facility] Utilities Answer Date Recorded In the [...] in a nursing home (including now)? No 07/08/2024 Area Deprivation Index Answer Date Reagan rded National Score (1-100), lower number is lower ri sk 63 03/05/2023 State Score (1-10), lower number is lower risk 4 03/05/2023 Data from: https://www.neighborhoodatlas.medicine.[facility]/. Last address used for calculation [address] [...] 10:00 AM EDT Hospital Encounter Admitting [address] [place] [address] Yuan Miller MD, PhD [address] [place] [address] Nausea and vomiting, unspecified vomiting type [R11.2], H/O bariatric surgery [Z98.84], Jejunostomy tube fell out [T85.528A] 04/10/2025 10:00 AM EDT - 04/10/2025 12:00 PM EDT Surgery Admitting [address] [phone] Yuan Miller MD, PhD [address] [phone] LAPAROSCOPIC JEJUNOSTOMY 04/19/2025 11:00 AM EDT [facility] Neurological Yarsani [address] [phone] Joann Loera APRN.MANAGER ADULT [address] [phone] Cognitive movement issues 04/21/2025 8:30 AM EDT [facility] Nutrition Therapy [address] [address] Tiffany Banks, RD [address] [phone] f/u TF forula tolerance and hydration 05/18/2025 9:00 AM EDT [facility] General Surgery [address] [place] [address] Michael Mroa PA-C [address] [place] [address] f/u with michael mora in 2 wks 05/29/2025 9:00 AM EDT [facility] Gastroenterology [address] [phone] Johanna Martinez MD [facility] [address] 1522006 3 month follow up 06/28/2025 10:00 AM EDT [facility] Neurology Pain [address] [place] [address] [place] [address] [place], [place] [phone] Follow up for pain Scheduled Procedures Name [...] as of this encounter Care Teams New Autos Delivery Driver Relationship Specialty Start Date End Date Shlomo Hu II, MD [address] [facility] 110 [place] [address] PCP - General Internal Medicine 10/06/23 Jacob Sharp [address] [phone] Referring 04/30/[address] [phone] Registered Dietitian Nutrition 06/24/[address] [place] [address] Registered Dietitian Nutrition 08/27/23 Yuan Miller MD, PhD [address] [place] [address] Surgeon General Surgery 02/03/24 documented as of this encounter
--- OUTSIDE RECORDS SUMMARY | 2025-04-09 11:59 | XMS_ITS | Encounter Summary ---
Author Organization [facility] Address [address] [place] [address] Care Team Providers Care Prestressed Concrete Laborer Name Role Phone Jacob Sharp Unavailable Rasheeda Newton RD Unavailable [phone] Unavailable [phone] Fritz HENDERSON MD, Shlomo Momin Primary Care Provider [phone] Yuan Miller MD, PhD Unavailable [phone] Source Comments In the event this information is protected by the Federal Confidentiality of Alcohol and Drug AbusePatient Records regulations: The Federal rules restrict any use of the information to criminally investigate or prosecute any alcohol or drug abuse patient.[facility] Encounter Details Date Type Department Care Team (Late st Contact Info) Description 06/08/2024 Get Medical Advice Pain Management [address] [place], [place] [phone] Johann Echeverria MD [address] [place], [place] [phone] Medical necessity Social History Tobacco Use Types [...] risk 4 03/05/2023 Data from: https://www.neighborhoodatlas.medicine.[facility].edu/. Last address used for calculation [...] 10:00 AM EDT Hospital Encounter Admitting [address] [place] [address] Yuan Miller MD, PhD [address] [place] [address] Nausea and vomiting, unspecified vomiting type [R11.2], H/O bariatric surgery [Z98.84], Jejunostomy tube fell out [T85.528A] 04/10/2025 10:00 AM EDT - 04/10/2025 12:00 PM EDT Surgery Admitting [address] [place] [address] Yuan Miller MD, PhD [address] [place] [address] LAPAROSCOPIC JEJUNOSTOMY 04/19/2025 11:00 AM EDT [facility] Neurological Shinto [address] [place] [address] Joann Loera APRN.IT SYSTEMS ANALYST 9500 [place] [address] Cognitive movement issues 04/21/2025 8:30 AM EDT [facility] Nutrition Therapy [address] [address] Tiffany Banks, RD [address]00 [place] [address] f/u TF forula tolerance and hydration 05/18/2025 9:00 AM EDT [facility] General Surgery [address]99 [place] [address] Michael Mora PA-C 9500 [place] [address] f/u with michael mora in 2 wks 05/29/2025 9:00 AM EDT [facility] Gastroenterology [address] [address] Johanna Martinez MD [facility] [address] [place] [address] 3 month follow up 06/28/2025 10:00 AM EDT [facility] Neurology Pain [address] [place] [address] [place] [address] [place], [place] [phone] Follow up for pain Scheduled Procedures Name [...] documented as of this encounter Care Teams Prestressed Concrete Laborer Relationship Specialty Start Date End Date Shlomo Hu II, MD 112 [facility] 110 [place] [address] PCP - General Internal Medicine 10/06/23 Jacob Sharp [address] [place] [address] Referring 04/30/[address] [place] [address] Registered Dietitian Nutrition 06/24/[address] [place] [address] Registered Dietitian Nutrition 08/27/23 Yuan Miller MD, PhD [address] [place], [place] 5042195 Surgeon General Surgery 02/03/24 documented as of this encounter
--- OUTSIDE RECORDS SUMMARY | 2025-04-09 11:59 | XMS_ITS | Encounter Summary ---
Author Organization [facility] Address [facility]8 [place] [address] Care Team Providers Care Script Developer Name Role Phone Jacob Sharp Unavailable Rasheeda Newton RD Unavailable [phone] Unavailable [phone] Fritz HENDERSON MD, Shlomo B Primary Care Provider [phone] Yuan Miller MD, PhD Unavailable [phone] Source Comments In the event this information is protected by the Federal Confidentiality of Alcohol and Drug AbusePatient Records regulations: The Federal rules restrict any use of the information to criminally investigate or prosecute any alcohol or drug abuse patient.[facility] Encounter Details Date Type Department Care Team (Late st Contact Info) Description 07/05/2024 Patient Msg Pre Anesthesia [address] [place] [address] Gabby Fuentes APRN.AUTOMOTIVE PAINTER HELPER [address] [place] [address] PRE-OPERATIVE INSTRUCTIONS Social History Tobacco [...] any time in the past 12 m [facility], were you homeless or living in a penitentiary (including now)? No 07/08/2024 Area Deprivation Index Answer Date Reagan rded National Score (1-100), lower number is lower ri sk 63 03/05/2023 State Score (1-10), lower number is lower risk 4 03/05/2023 Data from: https://www.neighborhoodatlas.medicine.[facility].edu/. Last address used for calculation [address] [...] Hospital Encounter Admitting [address]00 [place] [address] Yuan Miller MD, PhD [address] [phone] Nausea and vomiting, unspecified vomiting type [R11.2], H/O bariatric surgery [Z98.84], Jejunostomy tube fell out [T85.528A] 04/10/2025 10:00 AM EDT - 04/10/2025 12:00 PM EDT Surgery Admitting [address] [phone] Yuan Miller MD, PhD [address] [id number] LAPAROSCOPIC JEJUNOSTOMY 04/19/2025 11:00 AM EDT [facility] Neurological Zoroastrian [address] [phone] Joann Loera APRN.AUTOMOTIVE PAINTER HELPER [address] [phone] Cognitive movement issues 04/21/2025 8:30 AM EDT [facility] Nutrition Therapy [address] [address] Tiffany Banks, RD [address]00 [place] [address] f/u TF forula tolerance and hydration 05/18/2025 9:00 AM EDT [facility] General Surgery [address] [place] [address] Michael Mora PA-C [address]00 [place] [address] f/u with michael mora in 2 wks 05/29/2025 9:00 AM EDT [facility] Gastroenterology [address] [phone] Johanna Martinez MD [facility] [address] 5277106 3 month follow up 06/28/2025 10:00 AM EDT [facility] Neurology Pain [address] [place], [place] 8189106 [place] [address] [place], [place] [phone] Follow up for pain Scheduled Procedures Name [...] documented as of this encounter Care Teams Script Developer Relationship Specialty Start Date End Date Shlomo Hu II, MD 112 [facility] 110 [place] [address] PCP - General Internal Medicine 10/06/23 Jacob Sharp [address] [address] [id number] Referring 04/30/[address] [phone] Registered Dietitian Nutrition 06/24/[address]00 [place] [address] Registered Dietitian Nutrition 08/27/23 Yuan Miller MD, PhD [address] [place], [place] [phone] Surgeon General Surgery 5/22/24 documented as of this encounter
--- OUTSIDE RECORDS SUMMARY | 2025-04-09 11:59 | XMS_ITS | Encounter Summary ---
Author Organization [facility] Address [address] [place] [address] Care Team Providers Care Drosser Name Role Phone Jacob Sharp Unavailable Rasheeda Newton RD Unavailable [phone] Unavailable [phone] Fritz HENDERSON MD, Shlomo B Primary Care Provider [phone] Yuan Miller MD, PhD Unavailable [phone] Source Comments In the event this information is protected by the Federal Confidentiality of Alcohol and Drug AbusePatient Records regulations: The Federal rules restrict any use of the information to criminally investigate or prosecute any alcohol or drug abuse patient.[facility] Encounter Details Date Type Department Care Team (Late st Contact Info) Description 06/01/2024 Get Medical Advice PAIN [place] [address] [place] [address] Mary Arthur, JOSE.CHUTE PULLER [address] [address] [place] [address] Meds Social History Tobacco Use Types Packs/Day [...] Assessment Author No 02/21/2024 2:13 PM EDT hCelle Connell RN * Are you blind or [...] 10:00 AM EDT Hospital Encounter Admitting [address] [place] [address] Yuan Miller MD, PhD [address] [address] Nausea and vomiting, unspecified vomiting type [R11.2], H/O bariatric surgery [Z98.84], Jejunostomy tube fell out [T85.528A] 04/10/2025 10:00 AM EDT - 04/10/2025 12:00 PM EDT Surgery Admitting [address]00 [place] [address] Yuan Miller MD, PhD [address]00 [place] [address] LAPAROSCOPIC JEJUNOSTOMY 04/19/2025 11:00 AM EDT [facility] Neurological Alevism [address] [phone] Joann Loera APRN.CHUTE PULLER 9500 [place] [address] Cognitive movement issues 04/21/2025 8:30 AM EDT [facility] Nutrition Therapy [address] [phone] Tiffany Banks, RD [address] [phone] f/u TF forula tolerance and hydration 05/18/2025 9:00 AM EDT [facility] General Surgery [address] [phone] Michael Mora PA-C [address] [phone] f/u with michael mora in 2 wks 05/29/2025 9:00 AM EDT [facility] Gastroenterology [address] [phone] Johanna Martinez MD [facility] [address] [place], [place] 1550206 3 month follow up 06/28/2025 10:00 AM EDT [facility] Neurology Pain [address] [address] [phone] Wimla Lei, [address] [address] [id number] Follow up for pain Scheduled Procedures Name [...] documented as of this encounter Care Teams Drosser Relationship Specialty Start Date End Date Shlomo Hu II, MD [address] [facility] 110 [place] [address] PCP - General Internal Medicine 10/06/23 Jacob Sharp [address] [place] [address] Referring 04/30/[address] [address] [phone] Registered Dietitian Nutrition 06/24/[address]507 [place] [address] Registered Dietitian Nutrition 08/27/23 Yuan Miller MD, PhD 3712 [place] [address] Surgeon General Surgery 02/03/24 documented as of this encounter
--- OUTSIDE RECORDS SUMMARY | 2025-04-09 11:59 | XMS_ITS | Encounter Summary ---
Author Organization [facility] Address [address] [place] [address] Care Team Providers Care Health Promotion Coordinator Name Role Phone Jacob Sharp Unavailable Rasheeda Newton RD Unavailable [phone] Unavailable Fritz HENDERSON MD, Shlomo Momin Primary Care Provider [phone] Yuan Miller MD, PhD Unavailable [phone] Source Comments In the event this information is protected by the Federal Confidentiality of Alcohol and Drug AbusePatient Records regulations: The Federal rules restrict any use of the information to criminally investigate or prosecute any alcohol or drug abuse patient.[facility] Encounter Details Date Type Department Care Team (Late st Contact Info) Description 06/08/2024 Patient Msg Internal Medicine [facility] [address] [place] [address] Provider, Ccf APPOINTMENT CANCELLATION Social [...] is lower risk 4 03/05/2023 Data from: https://www.neighborhoodatlas.medicine.[facility].edu/. Last address used for calculation [...] 10:00 AM EDT Hospital Encounter Admitting 9500 [place] [address] Yuan [place] [address] [place] [address] Nausea and vomiting, unspecified vomiting type [R11.2], H/O bariatric surgery [Z98.84], Jejunostomy tube fell out [T85.528A] 04/10/2025 10:00 AM EDT - 04/10/2025 12:00 PM EDT Surgery Admitting [facility] [place] [id number] Yuan Miller MD, PhD [address] [place] [id number] LAPAROSCOPIC JEJUNOSTOMY 04/19/2025 11:00 AM EDT [facility] Neurological Caodaism [address] [place] [phone] Joann Loera APRN.YOUTH COUNSELOR 9500 [place] [address] Cognitive movement issues 04/21/2025 8:30 AM EDT [facility] Nutrition Therapy 2048 [place] [address] Tiffany Banks, RD 9500 [place] [address] f/u TF forula tolerance and hydration 05/18/2025 9:00 AM EDT [facility] General Surgery 9300 [place] [address] Michael Mora PA-C 9500 [place] [address] f/u with michael mora in 2 wks 05/29/2025 9:00 AM EDT [facility] Gastroenterology 2048 [place] [address] Johanna Martinez MD [facility] [address] [place], [place] [id number] 3 month follow up 06/28/2025 10:00 AM EDT [facility] Neurology Pain [address] [place] [phone] [place] [address] [place] [phone] Follow up for pain Scheduled Procedures Name [...] of this encounter Care Teams Health Promotion Coordinator Relationship Specialty Start Date End Date Shlomo Hu II, MD [address] [place] [address] PCP - General Internal Medicine 10/06/23 Jacob Sharp [address] [place] [address] Referring 04/30/[address] [place] [address] Registered Dietitian Nutrition 06/24/[address] 9504 [place] [address] Registered Dietitian Nutrition 08/27/23 Yuan Miller MD, PhD 3752 [place] [address] Surgeon General Surgery 02/03/24 documented as of this encounter
--- OUTSIDE RECORDS SUMMARY | 2025-04-09 11:59 | XMS_ITS | Encounter Summary ---
Author Organization [facility] Address [address] [place] [address] Care Team Providers Care Stock Saw Operator Name Role Phone Jacob Sharp Unavailable Rasheeda Newton RD Unavailable [phone] Unavailable [phone] Fritz HENDERSON MD, Shlomo Momin Primary Care Provider [phone] Yuan Miller MD, PhD Unavailable [phone] Source Comments In the event this information is protected by the Federal Confidentiality of Alcohol and Drug AbusePatient Records regulations: The Federal rules restrict any use of the information to criminally investigate or prosecute any alcohol or drug abuse patient.[facility] Encounter Details Date Type Department Care Team (Late st Contact Info) Description 07/20/2024 Get Medical Advice General Surgery 9300 [place] [address] Yuan Miller MD, PhD 6742 [place] [address] Feeding tube pain Social History Tobacco Use Types Packs/Day Years Used Date Smoking Tobacco: Never Smokeless Tobacco: Never Alcohol Use Standard Drinks/Week Comments Not Currently 0 (1 standard drink = 0.6 oz pur e alcohol) [facility] Utilities Answer Date Recorded In [...] living in a retirement (including now)? No 07/08/2024 Area Deprivation Index Answer Date Reagan rded National Score (1-100), lower number is lower ri sk 63 03/05/2023 State Score (1-10), lower number is lower risk 4 03/05/2023 Data from: https://www.neighborhoodatlas.[facility]/. Last address used for calculation [...] 10:00 AM EDT Hospital Encounter Admitting 9500 [place] [address] Yuan Miller MD, PhD [address] [place] [id number] Nausea and vomiting, unspecified vomiting type [R11.2], H/O bariatric surgery [Z98.84], Jejunostomy tube fell out [T85.528A] 04/10/2025 10:00 AM EDT - 04/10/2025 12:00 PM EDT Surgery Admitting [address] [place] [id number] Yuan Miller MD, PhD [address] [place] [phone] LAPAROSCOPIC JEJUNOSTOMY 04/19/2025 11:00 AM EDT [facility] Neurological Religion [address] [place] [phone] Joann Loera APRN.STOPER [address] [place] [phone] Cognitive movement issues 04/21/2025 8:30 AM EDT [facility] Nutrition Therapy [address] [address] Tiffany Banks, RD [address] [place] [phone] f/u TF forula tolerance and hydration 05/18/2025 9:00 AM EDT [facility] General Surgery 9300 [place] [address] Michael Mora PA-C 9500 [place] [address] f/u with michael mora in 2 wks 05/29/2025 9:00 AM EDT [facility] Gastroenterology [address] [place] [phone] Johanna Martinez MD [facility] [address] [place] [phone] 3 month follow up 06/28/2025 10:00 AM EDT [facility] Neurology Pain [address] [place] [phone] [place] [address] [place], [place] [phone] Follow up for pain Scheduled Procedures Name [...] documented as of this encounter Care Teams Stock Saw Operator Relationship Specialty Start Date End Date Shlomo Hu II, MD 112 [facility] 110 [place] [address] PCP - General Internal Medicine 10/06/23 Jacob Sharp [address] [place] [id number] Referring 04/30/[address] [place] [phone] Registered Dietitian Nutrition 06/24/[address] [facility] [place] [address] Registered Dietitian Nutrition 08/27/23 Yuan Miller MD, PhD [address] [place] [phone] Surgeon General Surgery 02/03/24 documented as of this encounter
--- OUTSIDE RECORDS SUMMARY | 2025-04-09 11:59 | XMS_ITS | Encounter Summary ---
Author Organization [facility] Address [address] [place] [address] Care Team Providers Care Meat Sales And Storage Manager Name Role Phone Jacob Sharp Unavailable Rasheeda Newton RD Unavailable [phone] Unavailable [phone] Fritz HENDERSON MD, Shlomo B Primary Care Provider [phone] Yuan Miller MD, PhD Unavailable [phone] Source Comments In the event this information is protected by the Federal Confidentiality of Alcohol and Drug AbusePatient Records regulations: The Federal rules restrict any use of the information to criminally investigate or prosecute any alcohol or drug abuse patient.[facility] Encounter Details Date Type Department Care Team (Late st Contact Info) Description 06/30/2024 Patient Msg General Surgery 9300 [place] [address] Michael Mora PA-C 2044 [place] [address] Appointment Cancellation Request Social History [...] in a mcc (including now)? No 02/16/2024 Area Deprivation Index Answer Date Reagan rded National Score (1-100), lower number is lower ri sk 63 03/05/2023 State Score (1-10), lower number is lower risk 4 03/05/2023 Data from: https://www.neighborhoodatlas.medicine.[facility].edu/. Last address used for calculation [address] [...] 10:00 AM EDT Hospital Encounter Admitting [address] [place] [address] Yuan Miller MD, PhD [address] [place] [address] Nausea and vomiting, unspecified vomiting type [R11.2], H/O bariatric surgery [Z98.84], Jejunostomy tube fell out [T85.528A] 04/10/2025 10:00 AM EDT - 04/10/2025 12:00 PM EDT Surgery Admitting 9500 [place] [address] Yuan Miller MD, PhD [address] [place] [phone] LAPAROSCOPIC JEJUNOSTOMY 04/19/2025 11:00 AM EDT [facility] Neurological [facility] [address] [place] 2235306 Joann Loera, JOSE.SALESPERSON FURS [address] [place] [phone] Cognitive movement issues 04/21/2025 8:30 AM EDT [facility] Nutrition Therapy [address] [place] [phone] Tiffany Banks, RD 9500 [place] [address] f/u TF forula tolerance and hydration 05/18/2025 9:00 AM T [facility] General Surgery [address] [place] 7101406 Michael Mora PA-C [address] [place] 2235395 f/u with michael mora in 2 wks 05/29/2025 9:00 AM T [facility] Gastroenterology [address] [place] [phone] Johanna Martinez MD [facility] [address] [place] 5973106 3 month follow up 06/28/2025 10:00 AM T [facility] Neurology Pain [address] [place] 2235306 [place] [address] [place] [address] Follow up for pain Scheduled Procedures Name [...] documented as of this encounter Care Teams Meat Sales And Storage Manager Relationship Specialty Start Date End Date Shlomo Hu II, MD 112 [facility] 110 [place] [address] PCP - General Internal Medicine 10/06/23 Jacob Sharp [address] [place] [address] Referring 04/30/[address], [place] [address] Registered Dietitian Nutrition 06/24/[address] [facility]2 [place] [address] Registered Dietitian Nutrition 08/27/23 Yuan Miller MD, PhD 9841 [place] [address] Surgeon General Surgery 02/03/24 documented as of this encounter
--- OUTSIDE RECORDS SUMMARY | 2025-04-09 11:59 | XMS_ITS | Encounter Summary ---
Author Organization [facility] Address [address] [place] [address] Care Team Providers Care Field Secretary Name Role Phone Jacob Sharp Unavailable Rasheeda Newton RD Unavailable Tiffany Banks RD Unavailable [phone] Fritz HENDERSON MD, Shlomo Momin Primary Care Provider [phone] Yuan Miller MD, PhD Unavailable [phone] Source Comments In the event this information is protected by the Federal Confidentiality of Alcohol and Drug AbusePatient Records regulations: The Federal rules restrict any use of the information to criminally investigate or prosecute any alcohol or drug abuse patient.[facility] Encounter Details Date Type Department Care Team (Late st Contact Info) Description 05/18/2024 Patient Msg Neurology [address] [place], [place] [phone] Provider, Ccf Ketamine infusions Social History Tobacco [...] a care home (including now)? No 02/16/2024 Area Deprivation Index Answer Date Reagan rded National Score (1-100), lower number is lower ri sk 63 03/05/2023 State Score (1-10), lower number is lower risk 4 03/05/2023 Data from: https://www.neighborhoodatlas.medicine.[facility].edu/. Last address used for calculation [address] [place] [...] 04/10/2025 10:00 AM EDT Hospital Encounter Admitting [facility] [place] [address] Yuan Miller MD, PhD [address] [place] [address] Nausea and vomiting, unspecified vomiting type [R11.2], H/O bariatric surgery [Z98.84], Jejunostomy tube fell out [T85.528A] 04/10/2025 10:00 AM EDT - 04/10/2025 12:00 PM EDT Surgery Admitting [facility] [place] [address] Yuan Miller MD, PhD [address] [place] [phone] LAPAROSCOPIC JEJUNOSTOMY 04/19/2025 11:00 AM EDT [facility] Neurological Hoahaoism [address] [place] [phone] Joann Loera APRN.NAVAL MARINE ENGINEER 9500 [place] [address] Cognitive movement issues 04/21/2025 8:30 AM EDT [facility] Nutrition Therapy [address] [place] [phone] Tiffany Banks, RD 9500 [place] [address] f/u TF forula tolerance and hydration 05/18/2025 9:00 AM EDT [facility] General Surgery 93 [place] 2983306 Michael Mora PA-C 9500 [place] [address] f/u with michael mora in 2 wks 05/29/2025 9:00 AM EDT [facility] Gastroenterology [address] [place] 1803606 Johanna Martinez MD [facility] [address] [place], [place] [address] 3 month follow up 06/28/2025 10:00 AM EDT [facility] Neurology Pain [address] [place] [phone] [place] [address] [place] [phone] Follow up for pain Scheduled Procedures Name [...] documented as of this encounter Care Teams Field Secretary Relationship Specialty Start Date End Date Shlomo Hu II, MD [address] [facility] 110 [place] [address] PCP - General Internal Medicine 10/06/23 Jacob Sharp [address] [place] [address] Referring 04/30/[address] [place] [phone] Registered Dietitian Nutrition 06/24/[address] [place] [address] Registered Dietitian Nutrition 08/27/23 Yuan Miller MD, PhD 6848 [place] [address] Surgeon General Surgery 02/03/24 documented as of this encounter
--- OUTSIDE RECORDS SUMMARY | 2025-04-09 11:59 | XMS_ITS | Encounter Summary ---
Author Organization [facility] Address [address] [place] [address] Care Team Providers Care Snap Attacher Name Role Phone Jacob Sharp Unavailable Aman Rasheeda TRUONG Unavailable [phone] Unavailable [phone] Fritz HENDERSON MD, Shlomo B Primary Care Provider [phone] Yuan Miller MD, PhD Unavailable [phone] Source Comments In the event this information is protected by the Federal Confidentiality of Alcohol and Drug AbusePatient Records regulations: The Federal rules restrict any use of the information to criminally investigate or prosecute any alcohol or drug abuse patient.[facility] Encounter Details Date Type Department Care Team (Late st Contact Info) Description 03/31/2025 Get Medical Advice General Surgery [address] [place], [place] [address] [place] [address] [address] [place], [place] [phone] Feeding tube Social History Tobacco Use Types Packs/Day Years Used Date Smoking Tobacco: Never Smokeless Tobacco: Never Alcohol Use Standard Drinks/Week Comments Not Currently 0 (1 standard drink = 0.6 oz pur e alcohol) [facility] Utilities Answer Date Recorded In [...] living in a fci (including now)? No 04/03/2025 Area Deprivation Index Answer Date Reagan rded National Score (1-100), lower number is lower ri sk 63 03/05/2023 State Score (1-10), lower number is lower risk 4 03/05/2023 Data from: https://www.neighborhoodatlas.[facility]/. Last address used for calculation [...] 10:00 AM EDT Hospital Encounter Admitting 9500 [place] [address] Yuan Miller MD, PhD [address] [place] [phone] Nausea and vomiting, unspecified vomiting type [R11.2], H/O bariatric surgery [Z98.84], Jejunostomy tube fell out [T85.528A] 04/10/2025 10:00 AM EDT - 04/10/2025 12:00 PM EDT Surgery Admitting [address] [place] [phone] Yuan Miller MD, PhD [address] [place] [phone] LAPAROSCOPIC JEJUNOSTOMY 04/19/2025 11:00 AM EDT [facility] Neurological Gnosticist 9300 [place] [address] Joann Loera APRN.DIRECTOR LIFE SALES [address] [place] [phone] Cognitive movement issues 04/21/2025 8:30 AM EDT [facility] Nutrition Therapy [address] [address] Tiffany Banks, RD [address] [place] [phone] f/u TF forula tolerance and hydration 05/18/2025 9:00 AM EDT [facility] General Surgery 9300 [place] [address] Michael Mora PA-C 9500 [place] [address] f/u with michael mora in 2 wks 05/29/2025 9:00 AM EDT [facility] Gastroenterology [address] [place] [phone] Johanna Martinez MD [facility] [address] [place] 0708106 3 month follow up 06/28/2025 10:00 AM EDT [facility] Neurology Pain [address] [place] 4209306 [place] [address] [place] [address] Follow up for pain Scheduled Procedures Name Priority Associated Diagnoses Date/Ti me LAPAROSCOPIC JEJUNOSTOMY Nausea and vomiting, unspecified vomiting type H/O bariatric surgery Jejunostomy tube fell out 04/10/2025 10:00 AM EDT documented as of this encounter Visit Diagnoses Not on filedocumented in this encounter Care Teams Snap Attacher Relationship Specialty Start Date End Date Shlomo Hu II, MD [address] [place] [address] 110 [place] [address] PCP - General Internal Medicine 10/06/23 Jacob Sharp [address] [place] [address] Referring 04/30/[address] [place] [phone] Registered Dietitian Nutrition 06/24/[address] [place], [place] [address] Registered Dietitian Nutrition 08/27/23 Yuan Miller MD, PhD [facility]0 [place] [phone] Surgeon General Surgery 02/03/24 documented as of this encounter
--- OUTSIDE RECORDS SUMMARY | 2025-04-09 11:59 | XMS_ITS | Encounter Summary ---
Author Organization [facility] Address [address] [place] [address] Care Team Providers Care Title I Coordinator Name Role Phone Jacob Sharp Unavailable Rsaheeda Newton RD Unavailable [phone] Unavailable [phone] Fritz HENDERSON MD, Shlomo B Primary Care Provider [phone] Yuan Miller MD, PhD Unavailable [phone] Source Comments In the event this information is protected by the Federal Confidentiality of Alcohol and Drug AbusePatient Records regulations: The Federal rules restrict any use of the information to criminally investigate or prosecute any alcohol or drug abuse patient.[facility] Encounter Details Date Type Department Care Team (Late st Contact Info) Description 07/20/2024 Patient Msg General Surgery 9300 [place] [address] Michael Mora PA-C 3715 [place] [address] Appointment Cancellation Request Social History [...] is lower risk 4 03/05/2023 Data from: https://www.neighborhoodatlas.[facility]/. Last address used for calculation [address] [...] 10:00 AM EDT Hospital Encounter Admitting 9500 [place] [address] Yuan Miller MD, PhD [address] [place] [phone] Nausea and vomiting, unspecified vomiting type [R11.2], H/O bariatric surgery [Z98.84], Jejunostomy tube fell out [T85.528A] 04/10/2025 10:00 AM EDT - 04/10/2025 12:00 PM EDT Surgery Admitting [address] [place] [phone] Yuan Miller MD, PhD [address] [place] [phone] LAPAROSCOPIC JEJUNOSTOMY 04/19/2025 11:00 AM EDT [facility] Neurological Presybeterian 9300 [place] [address] Joann Loera APRN.AFTER SCHOOL PROGRAM ASSISTANT [address] [place] [phone] Cognitive movement issues 04/21/2025 8:30 AM EDT [facility] Nutrition Therapy [address] [address] Tiffany Banks, RD 9500 [place] [address] f/u TF forula tolerance and hydration 05/18/2025 9:00 AM EDT [facility] General Surgery 9300 [place] [address] Michael Mora PA-C 9500 [place] [address] f/u with michael mora in 2 wks 05/29/2025 9:00 AM EDT [facility] Gastroenterology [address] [place] [phone] Johanna Martinez MD [facility] 20[address] [place] [phone] 3 month follow up 06/28/2025 10:00 AM EDT [facility] Neurology Pain [address] [place] [phone] [place] [address] [place] 1144495 Follow up for pain Scheduled Procedures Name [...] documented as of this encounter Care Teams Title I Coordinator Relationship Specialty Start Date End Date Shlomo Hu II, MD [address] [facility] 110 [place] [address] PCP - General Internal Medicine 10/06/23 Jacob Sharp [address] [place] [id number] Referring 04/30/[address] [place] 1906206 Registered Dietitian Nutrition 06/24/[address] [place] [phone] Registered Dietitian Nutrition 08/27/23 Yuan Miller MD, PhD [address] [place] [phone] Surgeon General Surgery 02/03/24 documented as of this encounter
--- OUTSIDE RECORDS SUMMARY | 2025-04-09 11:59 | XMS_ITS | Encounter Summary ---
Author Organization [facility] Address [address] [place] [address] Care Team Providers Care Flaker Tender Name Role Phone Jacob Sharp Unavailable Rasheeda Newton RD Unavailable [phone] Unavailable [phone] Fritz HENDERSON MD, Shlomo Momin Primary Care Provider [phone] Yuan Miller MD, PhD Unavailable [phone] Source Comments In the event this information is protected by the Federal Confidentiality of Alcohol and Drug AbusePatient Records regulations: The Federal rules restrict any use of the information to criminally investigate or prosecute any alcohol or drug abuse patient.[facility] Encounter Details Date Type Department Care Team (Late st Contact Info) Description 07/01/2024 Patient Msg General Surgery [address] [place] [phone] Provider, Ccf Surgical Procedure Social History Tobacco [...] is lower risk 4 03/05/2023 Data from: https://www.neighborhoodatlas.medicine.[facility].edu/. Last address used for calculation [address] [...] 10:00 AM EDT Hospital Encounter Admitting [facility] [place] [address] Yuan Miller MD, PhD [address] [place] [address] Nausea and vomiting, unspecified vomiting type [R11.2], H/O bariatric surgery [Z98.84], Jejunostomy tube fell out [T85.528A] 04/10/2025 10:00 AM EDT - 04/10/2025 12:00 PM EDT Surgery Admitting [facility] [place] [address] Yuan Miller MD, PhD [address] [place] [phone] LAPAROSCOPIC JEJUNOSTOMY 04/19/2025 11:00 AM EDT [facility] Neurological Jain 9300 [place] [address] Joann Loera APRN.GLOBAL MARKETING COORDINATOR [address] [place] [phone] Cognitive movement issues 04/21/2025 8:30 AM EDT [facility] Nutrition Therapy [address] [place] [phone] Tiffany Banks, RD [address] [place] [phone] f/u TF forula tolerance and hydration 05/18/2025 9:00 AM EDT [facility] General Surgery [address] [place] [phone] Michael Mora PA-C 9500 [place] [address] f/u with michael mora in 2 wks 05/29/2025 9:00 AM EDT [facility] Gastroenterology [address] [place] [phone] Johanna Martinez MD [facility] [address] [place], [place] 7208506 3 month follow up 06/28/2025 10:00 AM EDT [facility] Neurology Pain [address] [place] [phone] [place] [address] [place] [address] Follow up for pain Scheduled Procedures Name [...] documented as of this encounter Care Teams Flaker Tender Relationship Specialty Start Date End Date Shlomo Hu II, MD [address] [place] [address] PCP - General Internal Medicine 10/06/23 Jacob Sharp [address] [place] [address] Referring 04/30/[address] [place] [phone] Registered Dietitian Nutrition 06/24/[address] [facility] [place] [address] Registered Dietitian Nutrition 08/27/23 Yuan Miller MD, PhD 0167 [place] [address] Surgeon General Surgery 02/03/24 documented as of this encounter
--- OUTSIDE RECORDS SUMMARY | 2025-04-09 11:59 | XMS_ITS | Encounter Summary ---
Author Organization [facility] Address [address] [place] [address] Care Team Providers Care Weigher Alloy Name Role Phone Jacob Sharp Unavailable Rasheeda Newton RD Unavailable [phone] Unavailable [phone] Fritz HENDERSON MD, Shlomo Momin Primary Care Provider [phone] Yuan Miller MD, PhD Unavailable [phone] Source Comments In the event this information is protected by the Federal Confidentiality of Alcohol and Drug AbusePatient Records regulations: The Federal rules restrict any use of the information to criminally investigate or prosecute any alcohol or drug abuse patient.[facility] Encounter Details Date Type Department Care Team (Late st Contact Info) Description 07/07/2024 Patient Msg Neurology [address] [place], [place] [id number] Provider, Ccf Genna for Success and ketamine Social History Tobacco Use Types Packs/Day Years Used Date Smoking Tobacco: Never Smokeless Tobacco: Never Alcohol Use Standard Drinks/Week Comments Not Currently 0 (1 standard drink = 0.6 oz pur e alcohol) [facility] Utilities Answer Date Recorded In the past 12 months has th e electric, gas, oil, or water [employer] threatened to shut off services in your [...] in a skilled nursing (including now)? No 07/08/2024 Area Deprivation Index Answer Date Reagan rded National Score (1-100), lower number is lower ri sk 63 03/05/2023 State Score (1-10), lower number is lower risk 4 03/05/2023 Data from: https://www.neighborhoodatlas.medicine.[facility]/. Last address used [...] 10:00 AM EDT Hospital Encounter Admitting 9500 [place] [address] Yuan Miller MD, PhD [address] [place] [id number] Nausea and vomiting, unspecified vomiting type [R11.2], H/O bariatric surgery [Z98.84], Jejunostomy tube fell out [T85.528A] 04/10/2025 10:00 AM EDT - 04/10/2025 12:00 PM EDT Surgery Admitting [address] [place] [address] [id number] Yuan Miller MD, PhD [address] [id number] LAPAROSCOPIC JEJUNOSTOMY 04/19/2025 11:00 AM EDT [facility] Neurological Baptist [address] [place], [place] [phone] Joann Loera APRN.EXHAUSTER [address] [place] [address] [id number] Cognitive movement issues 04/21/2025 8:30 AM EDT [facility] Nutrition Therapy [address] [address] Tiffany Banks, RD 9500 [place] [address] f/u TF forula tolerance and hydration 05/18/2025 9:00 AM EDT [facility] General Surgery 9299 [place] [address] Michael Mora PA-C [address]00 [place] [address] f/u with michael mora in 2 wks 05/29/2025 9:00 AM EDT [facility] Gastroenterology [address] [address] Johanna Martinez MD [facility] [address] [place] [address] 3 month follow up 06/28/2025 10:00 AM EDT [facility] Neurology Pain [address] [place] [phone] Quique Wilma [address] [place], [place] [id number] Follow up for pain Scheduled Procedures Name [...] documented as of this encounter Care Teams Weigher Alloy Relationship Specialty Start Date End Date Shlomo Hu II, MD 112 [facility] 110 [place] [address] PCP - General Internal Medicine 10/06/23 Jacob Sharp [address] [address] [id number] Referring 04/30/[address] [place] [id number] Registered Dietitian Nutrition 06/24/[address] [place], [place] [phone] Registered Dietitian Nutrition 08/27/23 Yuan Miller MD, PhD [address] [phone] Surgeon General Surgery 02/03/24 documented as of this encounter
--- OUTSIDE RECORDS SUMMARY | 2025-04-09 11:59 | XMS_ITS | Encounter Summary ---
Author Organization [facility] Address [address] [place] [address] Care Team Providers Care Inspector General Name Role Phone Jacob Sharp Unavailable Rasheeda Newton RD Unavailable Tiffany Banks RD Unavailable [phone] Fritz HENDERSON MD, Shlomo Momin Primary Care Provider [phone] Yuan Miller MD, PhD Unavailable [phone] Source Comments In the event this information is protected by the Federal Confidentiality of Alcohol and Drug AbusePatient Records regulations: The Federal rules restrict any use of the information to criminally investigate or prosecute any alcohol or drug abuse patient.[facility] Encounter Details Date Type Department Care Team (Late st Contact Info) Description 07/04/2024 Patient Msg Neurology [address] [place], [place] [id number] Provider, Ccf Ketamine Social History Tobacco Use Types Packs/Day Years Used Date Smoking Tobacco: Never Smokeless Tobacco: Never Alcohol Use Standard Drinks/Week Comments Not Currently 0 (1 standard drink = 0.6 oz pur e alcohol) [facility] Utilities Answer Date Recorded In the past 12 months has th e [employer], gas, oil, or water [employer] threatened to shut off services in your [...] lower risk 4 03/05/2023 Data from: https://www.neighborhoodatlas.medicine.[facility]/. Last address used [...] 10:00 AM EDT Hospital Encounter Admitting 9500 [place] [address] Yuan Miller MD, PhD [address] [place] [address] [id number] Nausea and vomiting, unspecified vomiting type [R11.2], H/O bariatric surgery [Z98.84], Jejunostomy tube fell out [T85.528A] 04/10/2025 10:00 AM EDT - 04/10/2025 12:00 PM EDT Surgery Admitting 9500 [place] [address] Yuan Miller MD, PhD [address] [phone] LAPAROSCOPIC JEJUNOSTOMY 04/19/2025 11:00 AM EDT [facility] Neurological Restorationist [address] [place] [address] Joann Loera APRN.CASTING MACHINE SERVICE OPERATOR [address] [id number] Cognitive movement issues 04/21/2025 8:30 AM EDT [facility] Nutrition Therapy [address] [address] Tiffany Banks, RD 9500 [place] [address] f/u TF forula tolerance and hydration 05/18/2025 9:00 AM EDT [facility] General Surgery 9299 [place] [address] Michael Mora PA-C 9500 [place] [address] f/u with michael mora in 2 wks 05/29/2025 9:00 AM EDT [facility] Gastroenterology [address] [address] Johanna Martinez MD [facility] [address] [place], [place] [address] 3 month follow up 06/28/2025 10:00 AM EDT [facility] Neurology Pain [address] [place] [address] [place] [address] [place], [place] [phone] Follow up for pain Scheduled Procedures Name [...] documented as of this encounter Care Teams Inspector General Relationship Specialty Start Date End Date Shlomo Hu II, MD 112 [facility] 110 [place] [address] PCP - General Internal Medicine 10/06/23 Jacob Sharp [address] [place] [address] [phone] Referring 04/30/[address] [place] [address] Registered Dietitian Nutrition 06/24/[address] 9500 [place] [address] Registered Dietitian Nutrition 08/27/23 Yuan Miller MD, PhD 9500 [place], [place] [phone] Surgeon General Surgery 02/03/24 documented as of this encounter
--- OUTSIDE RECORDS SUMMARY | 2025-04-09 11:59 | XMS_ITS | Encounter Summary ---
Author Organization [facility] Address [address] [place] [address] Care Team Providers Care Filter Cloth Maker Name Role Phone Jacob Sharp Unavailable Rasheeda Newton RD Unavailable [phone] Unavailable [phone] Fritz HENDERSON MD, Shlomo Momin Primary Care Provider [phone] Yuan Miller MD, PhD Unavailable [phone] Source Comments In the event this information is protected by the Federal Confidentiality of Alcohol and Drug AbusePatient Records regulations: The Federal rules restrict any use of the information to criminally investigate or prosecute any alcohol or drug abuse patient.[facility] Encounter Details Date Type Department Care Team (Late st Contact Info) Description 06/10/2024 Patient Msg Neurology [address] [place], [place] [phone] Provider, Ccf Ketamine Social History Tobacco Use [...] risk 4 03/05/2023 Data from: https://www.neighborhoodatlas.medicine.[facility].edu/. Last address used for calculation [address] [...] 04/10/2025 10:00 AM EDT Hospital Encounter Admitting [facility] [place] [address] Yuan Miller MD, PhD [address] [place] [address] Nausea and vomiting, unspecified vomiting type [R11.2], H/O bariatric surgery [Z98.84], Jejunostomy tube fell out [T85.528A] 04/10/2025 10:00 AM EDT - 04/10/2025 12:00 PM EDT Surgery Admitting [facility] [place] [address] Yuan Miller MD, PhD [address] [place] [address] [phone] LAPAROSCOPIC JEJUNOSTOMY 04/19/2025 11:00 AM EDT [facility] Neurological Protestant [address] [place] [address] Joann Loera APRN.APPLICATIONS SPECIALIST [address] [phone] Cognitive movement issues 04/21/2025 8:30 AM EDT [facility] Nutrition Therapy [address] [place] [phone] Tiffany Banks, RD [address] [place] [id number] f/u TF forula tolerance and hydration 05/18/2025 9:00 AM EDT [facility] General Surgery [address] 5602006 Michael Mora PA-C 9500 [place] [address] f/u with michael mora in 2 wks 05/29/2025 9:00 AM EDT [facility] Gastroenterology [address] [place] [phone] Johanna Martinez MD [facility] [address] [place], [place] [address] 3 month follow up 06/28/2025 10:00 AM EDT [facility] Neurology Pain [address] [place] [phone] [place] [address] [place] [address] Follow up for pain Scheduled Procedures Name [...] documented as of this encounter Care Teams Filter Cloth Maker Relationship Specialty Start Date End Date Shlomo Hu II, MD [address] [place] [address] [place] [address] PCP - General Internal Medicine 10/06/23 Jacob Sharp [address] [place] [address] Referring 04/30/[address] [place] [phone] Registered Dietitian Nutrition 06/24/[address] [facility] [place] [address] Registered Dietitian Nutrition 08/27/23 Yuan Miller MD, PhD 1296 [place] [address] Surgeon General Surgery 02/03/24 documented as of this encounter
--- OUTSIDE RECORDS SUMMARY | 2025-04-09 11:59 | XMS_ITS | Encounter Summary ---
Author Organization [facility] Address [address] [place] [address] Care Team Providers Care Bean Sprout Laborer Name Role Phone Jacob Sharp Unavailable Rasheeda Newton RD Unavailable [phone] Unavailable [phone] Fritz HENDERSON MD, Shlomo Momin Primary Care Provider [phone] Yuan Miller MD, PhD Unavailable [phone] Source Comments In the event this information is protected by the Federal Confidentiality of Alcohol and Drug AbusePatient Records regulations: The Federal rules restrict any use of the information to criminally investigate or prosecute any alcohol or drug abuse patient.[facility] Encounter Details Date Type Department Care Team (Late st Contact Info) Description 06/13/2024 Get Medical Advice Pain Management [address] [place], [place] [phone] Johann Echeverria MD [address] [place], [place] [phone] Refill Social History Tobacco Use Types Packs/Day [...] lower risk 4 03/05/2023 Data from: https://www.neighborhoodatlas.medicine.[facility].edu/. Last address used for calculation 1744 [...] 10:00 AM EDT Hospital Encounter Admitting [address] [place] [address] Yuan Miller MD, PhD 9500 [place] [address] Nausea and vomiting, unspecified vomiting type [R11.2], H/O bariatric surgery [Z98.84], Jejunostomy tube fell out [T85.528A] 04/10/2025 10:00 AM EDT - 04/10/2025 12:00 PM EDT Surgery Admitting 9500 [place] [address] Yuan Miller MD, PhD [address]00 [place] [address] LAPAROSCOPIC JEJUNOSTOMY 04/19/2025 11:00 AM EDT [facility] Neurological Yarsanism [address] [place] [address] [phone] Joann Loera APRN.BIOCHEMIST [address] [phone] Cognitive movement issues 04/21/2025 8:30 AM EDT [facility] Nutrition Therapy [address] [place] [phone] Tiffany Banks, RD 9500 [place] [address] f/u TF forula tolerance and hydration 05/18/2025 9:00 AM EDT [facility] General Surgery [address] [phone] Michael Mora PA-C 9500 [place] [address] f/u with michael mora in 2 wks 05/29/2025 9:00 AM EDT [facility] Gastroenterology [address] [address] Johanna Martinez MD [facility] [address] [place], [place] 5[address] 3 month follow up 06/28/2025 10:00 AM EDT [facility] Neurology Pain [address] [place] [address] [place] [address] [place] [address] Follow up for pain Scheduled Procedures Name [...] documented as of this encounter Care Teams Bean Sprout Laborer Relationship Specialty Start Date End Date Shlomo Hu II, MD 112 [facility] 110 [place] [address] PCP - General Internal Medicine 10/06/23 Jacob Sharp [address] [place] [phone] Referring 04/30/[address] [place] [address] Registered Dietitian Nutrition 06/24/[address] [facility]0 [place] [phone] Registered Dietitian Nutrition 08/27/23 Yuan Miller MD, PhD [address] [place] [phone] Surgeon General Surgery 02/03/24 documented as of this encounter
--- OUTSIDE RECORDS SUMMARY | 2025-04-09 11:59 | XMS_ITS | Encounter Summary ---
Author Organization [facility] Address [address] [place] [address] Care Team Providers Care General Helper Name Role Phone Yg James MD Primary Care Provider [phone] Sean Ruiz DO Primary Care Provider [phone] Jacob Sharp Unavailable Rasheeda Newton RD Unavailable [phone] Unavailable [phone] Fritz HENDERSON MD, Shlomo B Primary Care Provider [phone] Yuan Miller MD, PhD Unavailable [phone] Source Comments In the event this information is protected by the Federal Confidentiality of Alcohol and Drug AbusePatient Records regulations: The Federal rules restrict any use of the information to criminally investigate or prosecute any alcohol or drug abuse patient.[facility] Encounter Details Date Type Department Care Team (Late st Contact Info) Description 07/08/2012 [facility] 9300 [place], [place] [phone] Juan Byrne MD [address] [phone] Social History Tobacco Use Types Packs/Day Years [...] AM EDT Hospital Encounter Admitting [facility] [place] [address] Yuan Miller MD, PhD [address] [place] [address] Nausea and vomiting, unspecified vomiting type [R11.2], H/O bariatric surgery [Z98.84], Jejunostomy tube fell out [T85.528A] 04/10/2025 10:00 AM EDT - 04/10/2025 12:00 PM EDT Surgery Admitting [facility] [place] [address] Yuan Miller MD, PhD [address]00 [place] [address] LAPAROSCOPIC JEJUNOSTOMY 04/19/2025 11:00 AM EDT [facility]rological Baptism [address] [place] [phone] Joann Loera, UTILITY WORKER FORGE.SPRING SALVAGE WORKER 9500 [place] [address] Cognitive movement issues 04/21/2025 8:30 AM EDT [facility] Nutrition Therapy [address] [address] Tiffany Banks, RD [address] [place] [phone] f/u TF forula tolerance and hydration 05/18/2025 9:00 AM EDT [facility] General Surgery [address] [place] 2043106 Michael Mora PA-C 9500 [place] [address] f/u with michael mora in 2 wks 05/29/2025 9:00 AM EDT [facility] Gastroenterology [address] [place] [address] Johanna Martinez MD [facility] [address] [place] 0180906 3 month follow up 06/28/2025 10:00 AM EDT [facility] Neurology Pain 33[address] [place] [address] [place] [address] [place] [address] [id number] Follow up for pain Scheduled Procedures Name [...] as of this encounter Care Teams General Helper Relationship Specialty [place] [address] [place] [phone] PCP - General 10/29/07 07/08/12 [place] [address] [place] [address] PCP - General Family Medicine 07/09/12 10/05/23 Shlomo Hu II, MD [address] [address] PCP - General Internal Medicine 10/06/23 Jacob Sharp [address] [place] [address] Referring 04/30/[address] [place] [address] Registered Dietitian Nutrition 06/24/[address]00 [place] [address] Registered Dietitian Nutrition 08/27/23 Yuan Miller MD, PhD 9500 [place] [address] Surgeon General Surgery 02/03/24 documented as of this encounter
--- OUTSIDE RECORDS SUMMARY | 2025-04-09 12:00 | XMS_ITS | Encounter Summary ---
Author Organization [facility] [employer] Address [id number] [address] [place] [address] Care Team Providers Care Oracle Data Warehouse Developer Name Role Phone JerichoSkylar leiva Julia GARCIA-GRADES 1 THRU 6 HOME TEACHER Primary Care Provider + Encounter Details Date Type Department Care Team (Late st Contact Info) Description 12/03/2023 Orders Only [facility] Internal Medicine - Family Medicine [address] [place] [phone] Sandy Sotelo CMA Nausea and vomiting in [...] How often do you attend chur or restoration services? Patient declined 05/08/2022 Do you belong [...] Answer Date Recorded Total Score 0 12/03/2023 [facility] [place] of Occupat ional Health - Occupational Stress [...] Recorded Do you need help finding a [facility] career center and/or a training program? [...] labs (12/02/2023 10:31 AM EDT) Skylar SZYMANSKI DC IMAGING Final Re sult MANUALLY TRANSCRIBED RESULTS * Magnesium (12/02/2023) Magnesium 2.2 [facility] Blood 12/02/2023 Skylar Echavarria APRN-GRADES 1 THRU 6 HOME TEACHER LAB BLOOD ORDERABLES Fin al Result Performing Organization Address City/[facility]/ZIP Co de Phone Number SUNQUEST * Phosphorus (12/02/2023) Phosphorus 2.7 [facility]QUEST Blood 12/02/2023 us Skylar Echavarria GEOPHYSICAL OPERATOR-GRADES 1 THRU 6 HOME TEACHER LAB BLOOD ORDERABLES Fin al Result Performing Organization Address City/[facility] Co de Phone Number SUNQUEST * Vitamin D 25 hydroxy (12/02/2023) External Vitamin D 25-Hydroxy 11.3 [facility]QUEST 12/02/2023 Skylar Echavarria GEOPHYSICAL OPERATOR-QuicklyChat LAB BLOOD ORDERABLES Fin al Result Performing Organization Address [facility] de Phone Number SUNQUEST * Comprehensive metabolic [...] Protein 6.0 SUNQUEST Blood 12/02/2023 Skylar Echavarria GEOPHYSICAL OPERATOR-QuicklyChat LAB BLOOD ORDERABLES Fin al Result Performing Organization Address [facility] de Phone Number SUNQUEST documented in this [...] documented as of this encounter Care Teams Oracle Data Warehouse Developer Relationship Specialty Start Date End Date Skylar Echavarria, GEOPHYSICAL OPERATOR-GRADES 1 THRU 6 HOME TEACHER [address] [place] [address] PCP - General Internal Medicine 11/18/23 documented as of this encounter
--- OUTSIDE RECORDS SUMMARY | 2025-04-09 12:00 | XMS_ITS | Encounter Summary ---
Author Organization [facility] Address [id number] [address] [place] [address] Care Team Providers Care Game Designer Name Role Phone Skylar Echavarria HANGERSMITH-STOCK HOLDER Primary Care Provider + Encounter Details Date Type Department Care Team (Late st Contact Info) Description 11/20/2023 Orders Only [facility] Internal Medicine - Family Medicine [address] [place] [address] Skylar Echavarria, HANGERSMITH-STOCK HOLDER [address] [place] [address] Community acquired bacterial pneumonia Social History Tobacco [...] you attend chur ch or hoahaoism services? Patient declined 05/08/2022 Do you belong [...] Answer Date Recorded Total Score 0 11/18/2023 [facility] [place] of Occupat ional Health - Occupational Stress [...] Recorded Do you need help finding a [facility] career [facility] and/or a training program? No [...] documented as of this encounter Care Teams Game Designer Relationship Specialty Start Date End Date Skylar Echavarria APRN-CNP 455 [place] [address] PCP - General Internal Medicine 11/18/23 documented as of this encounter
--- OUTSIDE RECORDS SUMMARY | 2025-04-09 12:00 | XMS_ITS | Encounter Summary ---
Author Organization [facility] Address [address] [facility] [place] [address] Care Team Providers Care Instrument Technician Helper Name Role Phone Shlomo Hu MD Primary Care Provider Jacob Sharp ECOMMERCE MANAGER Unavailable [phone] Thursday, Toya STATION ENGINEER Unavailable [phone] Shlomo Hu MD Unavailable [phone] Shante Kumar ULTRASOUND TECHNOL-BLINDMAKER Unavailable Claribel Scott RN Unavailable [phone] Jess Marsh STATION ENGINEER Unavailable Esthela Tesfaye BREAKER HAND Unavailable Reason for Visit * Reason Comments Med Refill Encounter Details Date Type Department Care Team (Late st Contact Info) Description 08/20/2023 Refill [facility] [address] [facility] 160 [place] [address] Shante Kumar, ULTRASOUND TECHNOL-BLINDMAKER [address] [place] [address] [facility] [address] [place] [address] Anxiety Social History Tobacco Use Types Packs/Day [...] attend chur or restoration services? Patient declined 03/01/2023 Do [...] medical care, and heating? Somewhat hard 03/01/2023 [facility] [place] of Occupat ional Health - Occupational Stress [...] Visit [facility] [address] [facility] [address] [place] [address] Sonny Rodriguez, DPM [address] [address] 05/04/2025 2:50 PM EDT Office Visit [facility] [address] [facility] [address] [place] [address] Sonny Rodriguez, DPM [address] [address] documented as of this encounter Visit Diagnoses Diagnosis Anxiety Anxiety state, unspecified documented in this encounter Care Teams Instrument Technician Helper Relationship Specialty Start Date End Date Shlomo Hu MD [address] [place] [address] [facility] [address] [place] [address] PCP - General Internal Medicine 02/15/23 [place] [address] [place] [address] PCP - [place] [employer] 08/14/23 Shlomo Hu MD [address] [place] [address] [facility] 110 [place] [address] PCP - [place] [employer] 05/15/2407/14 Shante Kumar APRN-BLINDMAKER [address] [place] [address] [place] [address] PCP - [place] [employer] 07/15/24, DUKE Pittman [address] [place] [address] Licensed Practical Nurse Family Medicine 01/19/24 10/21/24 Claribel Scott, RN [address] [place] [address] Licensed Practical Nurse Family Medicine 10/21/24 12/06/24 Jess Marsh LPN [address] [place] [address] [place] [address] 12/06/24 Esthela Tesfaye, KIRA 1479 [place] [address] Laser Beam Trim Operator Family Medicine 02/03/25 documented as of this encounter
--- OUTSIDE RECORDS SUMMARY | 2025-04-09 12:00 | XMS_ITS | Encounter Summary ---
Author Organization [facility] tem Address [id number] [address] [place] [address] Care Team Providers Care Speech Correction Assistant Name Role Phone Gamal Echavarriagarth Dumont APRN-CATEGORY ANALYST Primary Care Provider + Encounter Details Date Type Department Care Team (Late st Contact Info) Description 10/27/2023 Documentation [facility] - PICC [address] [place] [phone] Imer Yang, RN Social History Tobacco Use [...] week 05/08/2022 How often do you attend [facility] or mandaeism services? Patient declined 05/08/2022 Do you belong [...] Recorded Do you need help finding a [facility] career center and/or a training program? [...] documented as of this encounter Care Teams Speech Correction Assistant Relationship Specialty Start Date End Date Skylar Echavarria APRN-CATEGORY ANALYST [address] [place] [address] PCP - General Internal Medicine 11/18/23 documented as of this encounter
--- OUTSIDE RECORDS SUMMARY | 2025-04-09 12:00 | XMS_ITS | Encounter Summary ---
Author Organization [facility] Address [facility] [place] [address] Care Team Providers Care Retail Training Manager Name Role Phone Ruiz Sean Mona GALVEZ Primary Care Provider Jacob Sharp Unavailable Rasheeda Newton RD Unavailable [phone] Unavailable [phone] Fritz HENDERSON MD, Shlomo Momin Primary Care Provider [phone] Yuan Miller MD, PhD Unavailable [phone] Source Comments In the event this information is protected by the Federal Confidentiality of Alcohol and Drug AbusePatient Records regulations: The Federal rules restrict any use of the information to criminally investigate or prosecute any alcohol or drug abuse patient.[facility] Encounter Details Date Type Department Care Team (Late st Contact Info) Description 07/23/2012 Patient Msg Medical Records [address] [place] [address] Provider, Ccf RE: Appointment Cancellation Request Social [...] 10:00 AM EDT Hospital Encounter Admitting [address] [place] [address] Yuan Miller MD, PhD [address] [place] [id number] Nausea and vomiting, unspecified vomiting type [R11.2], H/O bariatric surgery [Z98.84], Jejunostomy tube fell out [T85.528A] 04/10/2025 10:00 AM EDT - 04/10/2025 12:00 PM EDT Surgery Admitting [address]00 [place] [address] Yuan Miller MD, PhD [address] [id number] LAPAROSCOPIC JEJUNOSTOMY 04/19/2025 11:00 AM EDT [facility] Neurological Judaism 9[address] [place] [address] Joann Loera APRN.DIRECTOR TELEMETRY [address] [place] [address] [phone] Cognitive movement issues 04/21/2025 8:30 AM EDT [facility] Nutrition Therapy [address] [address] Tiffany Banks, RD 9500 [place] [address] f/u TF forula tolerance and hydration 05/18/2025 9:00 AM EDT [facility] General Surgery [address] [place] [id number] Michael Mora PA-C 9500 [place] [address] f/u with michael mora in 2 wks 05/29/2025 9:00 AM EDT [facility] Gastroenterology [address] [address] Johanna Martinez MD [facility] [address] [address] 3 month follow up 06/28/2025 10:00 AM EDT [facility] Neurology Pain [address] [place] [address] [place] [address] [place], [place] [phone] Follow up for pain Scheduled Procedures Name [...] as of this encounter Care Teams Retail Training Manager Relationship Specialty [place] [address] [place] [id number] PCP - General Family Medicine 07/09/12 10/05/23 Shlomo Hu II, MD [address] [address] PCP - General Internal Medicine 10/06/23 Jacob Sharp [address] [place] [address] Referring 04/30/[address] [place] [address] Registered Dietitian Nutrition 06/24/[address] [facility] [place] [address] Registered Dietitian Nutrition 08/27/23 Yuan Miller MD, PhD [facility] [place] [phone] Surgeon General Surgery 02/03/24 documented as of this encounter
--- OUTSIDE RECORDS SUMMARY | 2025-04-09 12:00 | XMS_ITS | Encounter Summary ---
Author Organization [facility] tem Address [id number] [address] [place] [address] Care Team Providers Care Plastic Printer Name Role Phone Skylar Echavarria Julia GARCIA-OUTSIDE SALES REPRESENTATIVE INSURANCE Primary Care Provider + Encounter Details Date Type Department Care Team (Late st Contact Info) Description 10/27/2023 Orders Only [facility] - PICC [address] [place] [address] Imer Yang, RN Social History Tobacco Use [...] attend chur or holiness services? Patient declined 05/08/2022 Do you belong [...] Answer Date Recorded Total Score 0 05/08/2022 [facility] - [...] Recorded Do you need help finding a [facility] career center and/or a training program? [...] as of this encounter Care Teams Plastic Printer Relationship Specialty Start Date End Date Skylar Echavarria, PAD MACHINE OPERATOR-OUTSIDE SALES REPRESENTATIVE INSURANCE [address] [place] [address] PCP - General Internal Medicine 11/18/23 documented as of this encounter
--- OUTSIDE RECORDS SUMMARY | 2025-04-09 12:00 | XMS_ITS | Encounter Summary ---
Author Organization [facility] tem Address [id number] [address] [place] [address] Care Team Providers Care Farm Supervisor Name Role Phone JerichoSkylar leiva Julia ARCHITECTURE PROFESSOR-EDUCATION REVIEWER Primary Care Provider + Reason for Visit * Reason Comments Med Refill Encounter Details Date Type Department Care Team (Late st Contact Info) Description 02/06/2023 Refill [facility] [place] [address] [place] [address] Gilda Meza, ARCHITECTURE PROFESSOR-EDUCATION REVIEWER [address] [place] [address] Post-menopause atrophic vaginitis Social History Tobacco Use [...] often do you attend chur ch or yarsani services? Patient declined 05/08/2022 Do you belong [...] Answer Date Recorded Total Score 0 05/08/2022 [facility] ional [...] documented as of this encounter Care Teams Farm Supervisor Relationship Specialty Start Date End Date Skylar Echavarria, ARCHITECTURE PROFESSOR-EDUCATION REVIEWER [address] [place] [address] PCP - General Internal Medicine 11/18/23 documented as of this encounter
--- OUTSIDE RECORDS SUMMARY | 2025-04-09 12:00 | XMS_ITS | Encounter Summary ---
Author Organization [facility] Address [address] [place] [address] Care Team Providers Care District Leader Name Role Phone Jacob Sharp Unavailable Rasheeda Newton RD Unavailable [phone] Unavailable [phone] Fritz HENDERSON MD, Shlomo Momin Primary Care Provider [phone] Yuan Miller MD, PhD Unavailable [phone] Source Comments In the event this information is protected by the Federal Confidentiality of Alcohol and Drug AbusePatient Records regulations: The Federal rules restrict any use of the information to criminally investigate or prosecute any alcohol or drug abuse patient.[facility] Encounter Details Date Type Department Care Team (Late st Contact Info) Description 06/14/2024 Patient Tng Internal Medicine [place] [phone] [place] [phone] Provider, Ccf Appointment cancelation Social History Tobacco [...] lower risk 4 03/05/2023 Data from: https://www.neighborhoodatlas.medicine.[facility].edu/. Last address used for calculation [address] [...] 10:00 AM EDT Hospital Encounter Admitting [facility] [place] [address] Yuan Miller MD, PhD [address] [place] [address] Nausea and vomiting, unspecified vomiting type [R11.2], H/O bariatric surgery [Z98.84], Jejunostomy tube fell out [T85.528A] 04/10/2025 10:00 AM EDT - 04/10/2025 12:00 PM EDT Surgery Admitting [facility] [place] [address] Yuan Miller MD, PhD [address] [place] [address] [phone] LAPAROSCOPIC JEJUNOSTOMY 04/19/2025 11:00 AM EDT [facility] Neurological Quaker 9300 [place] [address] Joann Loera APRN.OUTREACH ANALYST 9500 [place] [address] Cognitive movement issues 04/21/2025 8:30 AM EDT [facility] Nutrition Therapy [address] [place] [phone] Tiffany Banks, RD 9500 [place] [address] f/u TF forula tolerance and hydration 05/18/2025 9:00 AM EDT [facility] General Surgery 9300 [place] [address] Michael Mora PA-C [address] [place] [address] f/u with michael mora in 2 wks 05/29/2025 9:00 AM EDT [facility] Gastroenterology [address] [place] 8491006 Johanna Martinez MD [facility] [address] [place] [phone] 3 month follow up 06/28/2025 10:00 AM EDT [facility] Neurology Pain [address] [place] [phone] [place] [address] [place] [phone] Follow up for pain Scheduled Procedures Name [...] documented as of this encounter Care Teams District Leader Relationship Specialty Start Date End Date Shlomo Hu II, MD [address] [place] [address] PCP - General Internal Medicine 10/06/23 Jacob Sharp [address] [place] [address] Referring 04/30/[address] [place] [address] Registered Dietitian Nutrition 06/24/[address] [place] [address] Registered Dietitian Nutrition 08/27/23 Yuan Miller MD, PhD [address] [place] [address] Surgeon General Surgery 02/03/24 documented as of this encounter
--- OUTSIDE RECORDS SUMMARY | 2025-04-09 12:00 | XMS_ITS | Encounter Summary ---
Author Organization [facility] Address [address] [facility] [place] [address] Care Team Providers Care Senior Copywriter Name Role Phone Shlomo Hu MD Primary Care Provider [phone] Jacob Sharp FONDANT PUFF MAKER Unavailable [phone] Thursday, Toya SUGARCANE RESEARCH TECHNICIAN Unavailable [phone] Shlomo uH MD Unavailable [phone] Shante Kumar OBIEE REPORT DEVELOPER-INTEGRITY MANAGER Unavailable Claribel Scott RN Unavailable Jess Marsh SUGARCANE RESEARCH TECHNICIAN Unavailable Esthela Tesfaye MENS LOCKER ROOM ATTENDANT Unavailable [phone] Encounter Details Date Type Department Care Team (Late st Contact Info) Description 06/04/2023 Abstract [facility] [place] [facility] 112 [facility] 110 [place] [address] Shlomo Hu MD 112 [facility] 110 [place], [place] [phone] Social History Tobacco Use Types Packs/Day Years [...] How often do you attend [facility] or mandaeism services? Patient declined 03/01/2023 [...] medical care, and heating? Somewhat hard 03/01/2023 [facility] [place] [facility] Occupat ional [facility] - Occupational [...] [address] [place] [address] Sonny Rodriguez, DPM [address] [address] 05/04/2025 2:50 PM EDT Office Visit [facility] [address] [place] [address] Sonny Rodriguez, DPM [address] [address] documented as of this encounter Visit Diagnoses Not on filedocumented in this encounter Care Teams Senior Copywriter Relationship Specialty Start Date End Date Shlomo Hu MD [address] [facility] 110 [place] [address] PCP - General Internal Medicine 02/15/23 [place] [address] [place] [address] PCP - [place] [employer] 08/14/23 Shlomo Hu MD [address] [place] [address] PCP - [place] [employer] 05/15/2407/14 Shante Kumar APRN-INTEGRITY MANAGER [address] [place] [address] PCP - [place] [employer] 07/15/24 5 Juan CarlosToya LPN [address] [place] [address] Licensed Practical Nurse Family Medicine 01/19/24 10/21/24 Claribel Scott, RN [address] [place] [address] Licensed Practical Nurse Family Medicine 10/21/24 12/06/24 Jess Marsh LPN 112 [facility] [address] [place] [address] 12/06/24 Esthela Tesfaye, KIRA [address] [place] [address] Supervisory Air Intercept Controller Family Medicine 02/03/25 documented as of this encounter
--- OUTSIDE RECORDS SUMMARY | 2025-04-09 12:00 | XMS_ITS | Encounter Summary ---
Author Organization [facility] Address [address] [place] [address] Care Team Providers Care Liquid Loader Name Role Phone Shlomo Hu MD Primary Care Provider [phone] Jacob Sharp GLOBAL PROGRAM MANAGER Unavailable Thursday, Toya ETHNOLOGY PROFESSOR Unavailable [phone] Shlomo Hu MD Unavailable [phone] Shante Kumar HAND SPRAY OPERATOR-ASSOCIATE PROFESSOR OF HISTORY Unavailable Claribel Scott RN Unavailable [phone] Jess Marsh ETHNOLOGY PROFESSOR Unavailable Esthela Tesfaye CHEMICAL PRODUCTION TECHNICIAN Unavailable [phone] Encounter Details Date Type Department Care [...] do you attend chur or tenriism services? Patient declined 03/01/2023 Do [...] medical care, and heating? Somewhat hard 03/01/2023 [facility]at ional [facility] [...] [address] [place] [address] Sonny Rodriguez DPM [address] [address] 05/04/2025 2:50 PM EDT Office Visit [facility] [address] [facility] 120 [place] [address] Sonny Rodriguez DPM [address] [address] documented as of this encounter Procedures Procedure [...] by the physician, the nurse and the bulk pallet builder in the pre-procedure area in the endoscopy [...] healthy appearing mucosa. This was traversed. The urvlf-ru-ecnfxzg limb was characterized by healthy appearing mucosa. [...] the patient. Procedure Code(s): --- Professional --- 17546 Diagnosis Code(s): --- Professional --- Z98.84 R19.7 R11.15 CPT copyright 2020 [employer]. All rights reserved. Attending Participation: [...] by the physician, the nurse and the bulk pallet builder in the pre-procedure area in the endoscopy [...] healthy appearing mucosa. This was traversed. The jronp-zg-xhplote limb was characterized by healthy appearing mucosa. [...] the patient. Procedure Code(s): --- Professional --- 19089 Diagnosis Code(s): --- Professional --- Z98.84 R19.7 R11.15 CPT copyright 2020 [employer]. All rights reserved. Attending Participation: I personally performed the entire procedure. Scope In: 1:51:03 PM Scope Out: 1:57:[address] Juan F Hankins, 08/07/2023 2:12:24 PM This report has been signed electronically by Juan F Hankins Number of Addenda: 0 Note Initiated On: 08/07/2023 1:29 PM Generic External Data Provider [facility] Final Result documented in this encounter Visit Diagnoses Not on filedocumented in this encounter Care Teams Liquid Loader Relationship Specialty Start Date End Date Shlomo Hu MD [address] [place] [address] PCP - General Internal Medicine 02/15/23 [place] [address] [facility] [place] [address] PCP - [place] [employer] 08/14/23 Shlomo Hu MD [address] [facility] 110 [place] [address] PCP - [place] [employer] 05/15/2407/14 Shante Kumar APRN-ASSOCIATE PROFESSOR OF HISTORY [address] [facility] 160 [place] [address] PCP - [place] 07/15/24 ThursdayToya LPN [address] [place] [address] Licensed Practical Nurse Family Medicine 01/19/24 10/21/24 Claribel Scott, RN [address] [place] [address] Licensed Practical Nurse Family Medicine 10/21/24 12/06/24 Jess Marsh LPN [address] [facility] 110 [place] [address] 12/06/24 Esthela Tesfaye LSW [address] [place] [address] Pool Lifeguard Family Medicine 02/03/25 documented as of this encounter
--- OUTSIDE RECORDS SUMMARY | 2025-04-09 12:00 | XMS_ITS | Encounter Summary ---
Author Organization [facility] Address [address] [place] [address] Care Team Providers Care Mirror Installer Name Role Phone Jacob Sharp Unavailable Rasheeda Newton RD Unavailable [phone] Unavailable [phone] Fritz HENDERSON MD, Shlomo Momin Primary Care Provider [phone] Yuan Miller MD, PhD Unavailable [phone] Source Comments In the event this information is protected by the Federal Confidentiality of Alcohol and Drug AbusePatient Records regulations: The Federal rules restrict any use of the information to criminally investigate or prosecute any alcohol or drug abuse patient.[facility] Encounter Details Date Type Department Care Team (Late st Contact Info) Description 06/13/2024 Get Medical Advice General Surgery 9300 [place] [address] Yuan Miller MD, PhD 1562 [place] [address] Leakage Social History Tobacco Use [...] risk 4 03/05/2023 Data from: https://www.neighborhoodatlas.medicine.[facility].edu/. Last address used for calculation [address] [...] 04/10/2025 10:00 AM EDT Hospital Encounter Admitting [address] [place] [address] Yuan Miller MD, PhD [address] [place] [address] Nausea and vomiting, unspecified vomiting type [R11.2], H/O bariatric surgery [Z98.84], Jejunostomy tube fell out [T85.528A] 04/10/2025 10:00 AM EDT - 04/10/2025 12:00 PM EDT Surgery Admitting 9500 [place] [address] Yuan Miller MD, PhD [address]00 [place] [address] LAPAROSCOPIC JEJUNOSTOMY 04/19/2025 11:00 AM EDT [facility] Neurological Confucianism [address] [place] [phone] Joann Loera, JOSE.ADOPTION SOCIAL WORKER 9500 [place] [address] Cognitive movement issues 04/21/2025 8:30 AM EDT [facility] Nutrition Therapy [address] [place] [phone] Tiffany Banks, RD [address] [place] [phone] f/u TF forula tolerance and hydration 05/18/2025 9:00 AM T [facility] General Surgery [address] [phone] Michael Mora PA-C 9500 [place] [address] f/u with michael mora in 2 wks 05/29/2025 9:00 AM T [facility] Gastroenterology [address] [place] [phone] Johanna Martinez MD [facility] [address] [place], [place] [phone] 3 month follow up 06/28/2025 10:00 AM T [facility] Neurology Pain [address] [place] [phone] [place] [address] [place] [address] Follow up for pain Scheduled Procedures Name [...] documented as of this encounter Care Teams Mirror Installer Relationship Specialty Start Date End Date Shlomo Hu II, MD 112 [facility] 110 [place] [address] PCP - General Internal Medicine 10/06/23 Jacob Sharp [address] [place] [address] Referring 04/30/[address] [place] [phone] Registered Dietitian Nutrition 06/24/[address] [place] [address] Registered Dietitian Nutrition 08/27/23 Yuan Miller MD, PhD 9500 [place] [address] Surgeon General Surgery 02/03/24 documented as of this encounter
--- OUTSIDE RECORDS SUMMARY | 2025-04-09 12:00 | XMS_ITS | Encounter Summary ---
Author Organization [facility] Address [facility] [place] [address] Care Team Providers Care Radiologic Therapist Name Role Phone Jacob Sharp Unavailable Rasheeda Newton RD Unavailable [phone] Unavailable [phone] Fritz HENDERSON MD, Shlomo Momin Primary Care Provider [phone] Yuan Miller MD, PhD Unavailable [phone] Source Comments In the event this information is protected by the Federal Confidentiality of Alcohol and Drug AbusePatient Records regulations: The Federal rules restrict any use of the information to criminally investigate or prosecute any alcohol or drug abuse patient.[facility] Reason for Visit * Reason Comments Appointment Encounter Details Date Type Department Care Team (Late st Contact Info) Description 04/03/2025 Telephone Gastroenterology [address] [place] [phone] Yuan Miller MD, PhD 6396 [place] [address] Appointment Social History Tobacco Use [...] is lower risk 4 03/05/2023 Data from: https://www.neighborhoodatlas.[facility]/. Last address used for calculation [address] [...] * Telephone Encounter - Jo Rodriguez - 04/03/2025 8:18 AM EDT Patient called upset her surgery was canceled I tried to explain that since she is admitted she can't get an outpatient procedure done. She is asking for a call back. documented in this encounter Plan of Treatment Upcoming Encounters Date Type Department Care Team (Latest Contact Info) Description 04/10/2025 10:00 AM EDT Hospital Encounter Admitting [address] [place], [place] [phone] Yuan Miller MD, PhD [address] [place], [place] [phone] Nausea and vomiting, unspecified vomiting type [R11.2], H/O bariatric surgery [Z98.84], Jejunostomy tube fell out [T85.528A] 04/10/2025 10:00 AM EDT - 04/10/2025 12:00 PM EDT Surgery Admitting [address] [place], [place] [phone] Yuan Miller MD, PhD [address] [place], [place] [phone] LAPAROSCOPIC JEJUNOSTOMY 04/19/2025 11:00 AM EDT [facility] Neurological Samaritan 9300 [place] [address] Joann Loera, CUTTER HOT KNIFE.UNDER PRESSER 9500 [place] [address] Cognitive movement issues 04/21/2025 8:30 AM EDT [facility] Nutrition Therapy [address] [address] Tiffany Banks, DIONNE 9500 [place] [address] f/u TF forula tolerance and hydration 05/18/2025 9:00 AM EDT [facility] General Surgery 9300 [place] [address] Michael Mora PA-C 9500 [place] [address] f/u with michael mora in 2 wks 05/29/2025 9:00 AM EDT [facility] Gastroenterology [address] [place] [address] Johanna Martinez MD [facility] [address] [address] 3 month follow up 06/28/2025 10:00 AM EDT [facility] Neurology Pain [address] [place] [address] [place] [address] [place], [place] [phone] Follow up for pain Scheduled Procedures Name Priority Associated Diagnoses Date/Ti me LAPAROSCOPIC JEJUNOSTOMY Nausea and vomiting, unspecified vomiting type H/O bariatric surgery Jejunostomy tube fell out 04/10/2025 10:00 AM EDT documented as of this encounter Visit Diagnoses Not on filedocumented in this encounter Care Teams Radiologic Therapist Relationship Specialty Start Date End Date Shlomo Hu II, MD [address] [facility] 110 [place] [address] PCP - General Internal Medicine 10/06/23 Jacob Sharp [address] [place] [address] Referring 04/30/[address] [address] Registered Dietitian Nutrition 06/24/[address]00 [place], [place] [phone] Registered Dietitian Nutrition 08/27/23 Yuan Miller MD, PhD 9500 [place] [address] Surgeon General Surgery 02/03/24 documented as of this encounter
--- OUTSIDE RECORDS SUMMARY | 2025-04-09 12:00 | XMS_ITS | Encounter Summary ---
Author Organization [facility] Address [address] [place] [address] Care Team Providers Care Felting Machine Operator Name Role Phone Shlomo Hu MD Primary Care Provider [phone] Jacob Sharp FOLDER MACHINE ADJUSTER Unavailable Thursday, Toya CANINE DEPUTY Unavailable [phone] Shlomo Hu MD Unavailable Shante Kumar LOCATION WORKER-ARMATURE BALANCER Unavailable Claribel Scott RN Unavailable [phone] Jess Marsh CANINE DEPUTY Unavailable Esthela Tesafye WHIPPED TOPPING MIXER Unavailable [phone] Encounter Details Date Type Department Care [...] do you attend chur or rastafarian services? Patient declined 03/01/2023 Do you belong [...] medical care, and heating? Somewhat hard 03/01/2023 [facility] of Occupat ional [...] [address] [place] [address] Sonny Rodriguez DPM 3006 [facility] 5 [place] [address] 05/04/2025 2:50 PM EDT Office Visit [facility] [address] [facility] 120 [place] [address] Sonny Rodriguez DPM 3006 [facility] 5 [place] [address] documented as of this encounter Procedures Procedure [...] QTC Calculation(Bazett) : 401 ms Calculated P [place] : 35 degrees Calculated R [place] : 19 degrees Calculated T [place] : 14 degrees NORMAL SINUS RHYTHM LOW VOLTAGE BORDERLINE ECG Confirmed by MD DENI, PhD, LINDSAY ([id number]) on 08/26/2023 7:51:26 AM NAME : MELINA TAVERAS PID : [id number] : 1975 Gender : Female Race : ORD : [id number] Procedure Date : Aug 10 2023 21:09:02 [...] QTC Calculation(Bazett) : 401 ms Calculated P [place] : 35 degrees Calculated R [place] : 19 degrees Calculated T [place] : 14 degrees NORMAL SINUS RHYTHM LOW VOLTAGE BORDERLINE ECG Confirmed by MD DENI, PhD, LINDSAY ([id number]) on 08/26/2023 7:51:26 AM NAME : MELINA TAVERAS PID : [id number] : 1975 Gender : Female Race : ORD : [id number] Procedure Date : Aug 10 2023 21:09:02 Edit Date : Aug 26 2023 07:51:27 Diagnosis: NORMAL SINUS RHYTHM LOW VOLTAGE BORDERLINE ECG Confirmed by MD DENI, PhD, LINDSAY ([id number]) on 08/26/2023 7:51:26 AM Test Reason : Check QT Location : 84 : H81 H081-22 Overread By : MD DENI, PhD,LINDSAY Edited By : MD DENI, PhD,LINDSAY Referred By : HAMLET BARBOSA Acquired by : BUDDY GUSTAFSON us Generic External Data Provider ECG ORDERABLES F inal Result Performing Organization Address City/State/[facility] Co de Phone Number [facility] documented in this encounter Visit Diagnoses Not on filedocumented in this encounter Care Teams Felting Machine Operator Relationship Specialty Start Date End Date Shlomo Hu MD [address] [place] [address] [address] PCP - General Internal Medicine 02/15/23 [place] [address] [place] [address] PCP - [place] [employer] 08/14/23 Shlomo Hu MD [address] [facility] 110 [place] [address] PCP - [place] [employer] 05/15/2407/14 Shante Kumar, LOCATION WORKER-ARMATURE BALANCER [address] [place] [address] PCP - [place] [employer] 07/15/24 ThursdayToya LPN [address] [place] [address] Licensed Practical Nurse Family Medicine 01/19/24 10/21/24 Claribel Scott, RN [address] [place] [address] Licensed Practical Nurse Family Medicine 10/21/24 12/06/24 Jess Marsh LPN 112 [facility] 110 [place] [address] 12/06/24 Esthela Tesfaye, WHIPPED TOPPING MIXER [address] [place] [address] Stack Clerk Family Medicine 02/03/25 documented as of this encounter
--- OUTSIDE RECORDS SUMMARY | 2025-04-09 12:00 | XMS_ITS | Encounter Summary ---
Author Organization [facility] Address [address] [place] [address] Care Team Providers Care Truck Mechanic Name Role Phone Shlomo Hu MD Primary Care Provider [phone] Jacob Sharp REAL ESTATE OPERATIONS MANAGER Unavailable Thursday, Toya TECHNICAL SOLUTION ARCHITECT Unavailable [phone] Shlomo Hu MD Unavailable [phone] Shante Kumar TIN POURER-HELMET COVERER Unavailable Claribel Scott RN Unavailable [phone] Jess Marsh TECHNICAL SOLUTION ARCHITECT Unavailable Esthela Tesfaye RESIDENTIAL REAL ESTATE SALES MANAGER Unavailable [phone] Encounter Details Date Type Department Care [...] do you attend chur or samaritan services? Patient declined 03/01/2023 Do [...] medical care, and heating? Somewhat hard 03/01/2023 [facility] of Occupat ional Health [...] EDT Office Visit [facility] 112 [facility] 120 [place] [address] Sonny Rodriguez, EFREN [address] [address] 05/04/2025 2:50 PM EDT Office Visit [facility] 112 [facility] 120 [place] [address] Sonny Rodriguez DPM [address] [address] documented as of this encounter Procedures Procedure [...] change. Expected changes following Gelacio-en-Y gastric bypass. Treasury Manager: [facility] Transcribe Date/Time: Jul 03 2023 12:53P Dictated by : SAIMA LOCKE MD This examination was interpreted and the report reviewed and electronically signed by: SAIMA LOCKE MD on Jul 03 2023 1:07PM EST [id number]^SI^ACN Procedure Note Radiology, Radiologist, - 07/03/2023 * [...] change. Expected changes following Gelacio-en-Y gastric bypass. Treasury Manager: [facility] Transcribe Date/Time: Jul 03 2023 12:53P Dictated by : SAIMA LOCKE MD This examination was interpreted and the report reviewed and electronically signed by: SAIMA LOCKE MD on Jul 03 2023 1:07PM EST [id number]^[id number]^SI^ACN Generic External Data Provider [facility] Final Result documented in this encounter Visit Diagnoses Not on filedocumented in this encounter Care Teams Truck Mechanic Relationship Specialty Start Date End Date Shlomo Hu MD [address] [address] PCP - General Internal Medicine 02/15/23 [place] [address] [place] [address] PCP - [place] [employer] 08/14/23 Shlomo Hu MD [address] [address] PCP - [place] [employer] 05/15/2407/14 Shante Kumar, TIN POURER-HELMET COVERER [address] [place] [address] PCP - [place] [employer] 07/15/24 ThursdayToya LPN 112 [facility] [address] [place] [address] Licensed Practical Nurse Family Medicine 01/19/24 10/21/24 Claribel Scott, RN [address] [place] [address] Licensed Practical Nurse Family Medicine 10/21/24 12/06/24 Jess Marsh LPN 112 [facility] 110 [place] [address] 12/06/24 Esthela Tesfaye, RESIDENTIAL REAL ESTATE SALES MANAGER [address] [place] [address] Bleach Packer Family Medicine 02/03/25 documented as of this encounter
--- OUTSIDE RECORDS SUMMARY | 2025-04-09 12:00 | XMS_ITS | Encounter Summary ---
Author Organization [facility] Address [address] [place] [address] Care Team Providers Care Supervisor Data Processing Name Role Phone Jacob Sharp Unavailable Rasheeda Newton RD Unavailable [phone] Unavailable [phone] Fritz HENDERSON MD, Shlomo B Primary Care Provider [phone] Yuan Miller MD, PhD Unavailable [phone] Source Comments In the event this information is protected by the Federal Confidentiality of Alcohol and Drug AbusePatient Records regulations: The Federal rules restrict any use of the information to criminally investigate or prosecute any alcohol or drug abuse patient.[facility] Reason for Visit * Reason Comments 04/10/2025 Encounter Details Date Type Department Care Team (Late st Contact Info) Description 04/04/2025 Patient Update General Surgery [address] [place], [place] [id number] Yenny Cast RN 04/10/2025 Social History Tobacco Use Types Packs/Day Years Used Date Smoking Tobacco: Never Smokeless Tobacco: Never Alcohol Use Standard Drinks/Week Comments Not Currently 0 (1 standard drink = 0.6 oz pur e alcohol) [facility] Utilities Answer Date Recorded In the past [...] risk 4 03/05/2023 Data from: https://www.neighborhoodatlas.medicine.[facility].edu/. Last address used for calculation [address] [address] 03/05/2023 Comments No Sex [...] 10:00 AM EDT Hospital Encounter Admitting [address] [id number] Yuan Miller MD, PhD [address] [place] [address] [id number] Nausea and vomiting, unspecified vomiting type [R11.2], H/O bariatric surgery [Z98.84], Jejunostomy tube fell out [T85.528A] 04/10/2025 10:00 AM EDT - 04/10/2025 12:00 PM EDT Surgery Admitting [address] [id number] Yuan Miller MD, PhD [address] [id number] LAPAROSCOPIC JEJUNOSTOMY 04/19/2025 11:00 AM EDT [facility] Neurological Zoroastrian [address] [id number] Joann Loera, JOSE.BEAN VINER [address] [place] [address] Cognitive movement issues 04/21/2025 8:30 AM EDT [facility] Nutrition Therapy [address] [address] Tiffany Banks, RD 9500 [place] [address] f/u TF forula tolerance and hydration 05/18/2025 9:00 AM EDT [facility] General Surgery [address] [place] [address] Michael Mora PA-C 9500 [place] [address] f/u with michael mora in 2 wks 05/29/2025 9:00 AM EDT [facility] Gastroenterology [address] [address] Johanna Martinez MD [facility] [address] [place] [address] 3 month follow up 06/28/2025 10:00 AM EDT [facility] Neurology Pain [address] [place] [address] [place] [address] [place], [place] [phone] Follow up for pain Scheduled Procedures Name Priority Associated Diagnoses Date/Ti me LAPAROSCOPIC JEJUNOSTOMY Nausea and vomiting, unspecified vomiting type H/O bariatric surgery Jejunostomy tube fell out 04/10/2025 10:00 AM EDT documented as of this encounter Visit Diagnoses Diagnosis Nausea and vomiting, unspecified vomiting type- Primary H/O bariatric surgery Bariatric surgery status Jejunostomy tube fell out Mechanical complication of colostomy and enterostomy Nausea and vomiting, unspecified vomiting type H/O bariatric surgery Bariatric surgery status Jejunostomy tube fell out Mechanical complication of colostomy and enterostomy documented in this encounter Care Teams Supervisor Data Processing Relationship Specialty Start Date End Date Shlomo Hu II, MD 112 [facility] 110 [place] [address] PCP - General Internal Medicine 10/06/23 Jacob Sharp [address] [place] [address] Referring 04/30/[address] [address] [phone] Registered Dietitian Nutrition 06/24/[address]00 [place] [address] Registered Dietitian Nutrition 08/27/23 Yuan Miller MD, PhD [address] [place] [address] Surgeon General Surgery 02/03/24 documented as of this encounter
--- OUTSIDE RECORDS SUMMARY | 2025-04-09 12:01 | XMS_ITS | Encounter Summary ---
Author Organization [facility] Address [address] [place] [address] Care Team Providers Care Dining Host Name Role Phone Jacob Sharp Unavailable Rasheeda Newton RD Unavailable [phone] Unavailable [phone] Fritz HENDERSON MD, Shlomo B Primary Care Provider [phone] Yuan Miller MD, PhD Unavailable [phone] Source Comments In the event this information is protected by the Federal Confidentiality of Alcohol and Drug AbusePatient Records regulations: The Federal rules restrict any use of the information to criminally investigate or prosecute any alcohol or drug abuse patient.[facility] Encounter Details Date Type Department Care Team (Late st Contact Info) Description 04/20/2024 Get Medical Advice General Surgery [address]300 [place] [address] Michael Mora PA-C [address]4 [place] [address] Home health aide at [facility] Social History Tobacco Use Types Packs/Day [...] is lower risk 4 03/05/2023 Data from: https://www.neighborhoodatlas.medicine.[facility].edu/. Last address used for [...] 10:00 AM EDT Hospital Encounter Admitting [address] [place] [address] Yuan Miller MD, PhD [address] [place] [address] Nausea and vomiting, unspecified vomiting type [R11.2], H/O bariatric surgery [Z98.84], Jejunostomy tube fell out [T85.528A] 04/10/2025 10:00 AM EDT - 04/10/2025 12:00 PM EDT Surgery Admitting [address] [place] [address] Yuan Miller MD, PhD [address] [place] [address] LAPAROSCOPIC JEJUNOSTOMY 04/19/2025 11:00 AM EDT [facility] Neurological Jewish [address] [id number] Joann Loera APRN.ASSOCIATE DRAFTER [address] [id number] Cognitive movement issues 04/21/2025 8:30 AM T [facility] Nutrition Therapy [address] [id number] Tiffany Banks, RD [address] [place] [address] f/u TF forula tolerance and hydration 05/18/2025 9:00 AM T [facility] General Surgery [address] [phone] Michael Mora PA-C [address] [phone] f/u with michael mora in 2 wks 05/29/2025 9:00 AM T [facility] Gastroenterology [address] [place] [address] [phone] Johanna Martinez MD [facility] [address] 7369306 3 month follow up 06/28/2025 10:00 AM T [facility] Neurology Pain [address] [phone] [place] [address] [place] [address] Follow up for pain Scheduled Procedures Name [...] as of this encounter Care Teams Dining Host Relationship Specialty Start Date End Date Shlomo Hu II, MD 112 [facility] 110 [place] [address] PCP - General Internal Medicine 10/06/23 Jacob Sharp [address] [place] [address] Referring 04/30/[address] [id number] Registered Dietitian Nutrition 06/24/[address] [place] [address] Registered Dietitian Nutrition 08/27/23 Yuan Miller MD, PhD [facility]0 [place] [address] Surgeon General Surgery 02/03/24 documented as of this encounter
--- OUTSIDE RECORDS SUMMARY | 2025-04-09 12:01 | XMS_ITS | Encounter Summary ---
Author Organization [facility] Address [address] [place] [address] Care Team Providers Care Commercial Appraiser Name Role Phone Joseph Sean Mona GALVEZ Primary Care Provider [phone] Jacob Sharp Unavailable Rasheeda Newton [address] Unavailable [phone] Unavailable [phone] Fritz HENDERSON MD, Shlomo Momin Primary Care Provider [phone] Yuan Miller MD, PhD Unavailable [phone] Source Comments In the event this information is protected by the Federal Confidentiality of Alcohol and Drug AbusePatient Records regulations: The Federal rules restrict any use of the information to criminally investigate or prosecute any alcohol or drug abuse patient.[facility] Encounter Details Date Type Department Care Team (Late st Contact Info) Description 04/03/2023 Patient Msg General Surgery [address] [place] [address] Provider, Ccf order Social History [...] slept in a fpc (including now)? No 09/18/2022 Area Deprivation Index Answer Date Reagan rded National Score (1-100), lower number is lower ri sk 63 03/05/2023 State Score (1-10), lower number is lower risk 4 03/05/2023 Data from: https://www.neighborhoodatlas.medicine.[facility].edu/. Last address used for calculation [...] 04/10/2025 10:00 AM EDT Hospital Encounter Admitting [address] [place] [address] Yuan Miller [place], PhD [address] [place], [place] [phone] Nausea and vomiting, unspecified vomiting type [R11.2], H/O bariatric surgery [Z98.84], Jejunostomy tube fell out [T85.528A] 04/10/2025 10:00 AM EDT - 04/10/2025 12:00 PM EDT Surgery Admitting 9500 [place] [address] Yuan Miller MD, PhD [address] [phone] LAPAROSCOPIC JEJUNOSTOMY 04/19/2025 11:00 AM EDT [facility] Neurological Anabaptism [address] [phone] Joann Loera APRN.INFORMATION SYSTEMS PROJECT MANAGER [address] [phone] Cognitive movement issues 04/21/2025 8:30 AM EDT [facility] Nutrition Therapy [address] [phone] Tiffany Banks, RD [address] [place] [address] f/u TF forula tolerance and hydration 05/18/2025 9:00 AM EDT [facility] General Surgery 93 [place] [address] Michael Mora PA-C [address] [place] [address] f/u with michael mora in 2 wks 05/29/2025 9:00 AM EDT [facility] Gastroenterology 2048 [place] [address] Johanna Martinez MD [facility] [address] [place], [place] [address] 3 month follow up 06/28/2025 10:00 AM EDT [facility] Neurology Pain [address] [place] [address] [place] [address] [place] [id number] Follow up for pain Scheduled Procedures Name [...] documented as of this encounter Care Teams Commercial Appraiser Relationship Specialty [place] [address] [place], [place] [phone] PCP - General Family Medicine 07/09/12 10/05/23 Shlomo Hu II, MD 112 [facility] 110 [place] [address] PCP - General Internal Medicine 10/06/23 Jacob Sharp [address] [place] [address] Referring 04/30/[address] [place] [address] Registered Dietitian Nutrition 06/24/[address] [place], [place] 8[address] Registered Dietitian Nutrition 08/27/23 Yuan Miller MD, PhD [address] [phone] Surgeon General Surgery 02/03/24 documented as of this encounter
--- OUTSIDE RECORDS SUMMARY | 2025-04-09 12:01 | XMS_ITS | Encounter Summary ---
Author Organization [facility] Address [address] [place] [address] Care Team Providers Care Photovoltaic Panel Installer Name Role Phone Shlomo Hu MD Primary Care Provider [phone] Jacob Sharp BOARD MIXER TENDER Unavailable Thursday, Toya SLOTTER OPERATOR HELPER Unavailable [phone] Shlomo Hu MD Unavailable [phone] Shante Kumar ENVIRONMENTAL PROGRAMS MANAGER-PRODUCTION PROOFREADER Unavailable Claribel Scott RN Unavailable Jess Marsh SLOTTER OPERATOR HELPER Unavailable Esthela Tesfaye WOOD HEEL FLAP RUBBER Unavailable [phone] Encounter Details Date Type Department Care Team (Late st Contact Info) Description 05/04/2023 Orders Only [facility] [address] [facility] 110 [place] [address] A, Unknown Practice [address] [place] [address] Social History Tobacco Use Types [...] How often do you attend [facility] or denominational services? Patient declined 03/01/2023 [...] medical care, and heating? Somewhat hard 03/01/2023 [facility] of Occupat ional Health [...] CI PODIATRY [address] [place] [address] Sonny Rodriguez, DPM [address] [address] 05/04/2025 2:50 PM EDT Office Visit [facility] [address] [facility] 120 [place] [address] Sonny Rodriguez DPM [address] [address] documented as of this encounter Procedures Procedure [...] on filedocumented in this encounter Care Teams Photovoltaic Panel Installer Relationship Specialty Start Date End Date Shlomo Hu MD [address] [facility] 110 [place] [address] PCP - General Internal Medicine 02/15/23 [place] [address] [place] [address] PCP - [place] [employer] 08/14/23 Shlomo Hu MD [address] [facility] 110 [place] [address] PCP - [place] [employer] 05/15/2407/14 Shante Kumar, ENVIRONMENTAL PROGRAMS MANAGER-PRODUCTION PROOFREADER [address] [facility] 160 [place] [address] PCP - [place] [employer] 07/15/24 [address] [place] [address] Licensed Practical Nurse Family Medicine 01/19/24 10/21/24 Claribel Scott, RN [address] [place] [address] Licensed Practical Nurse Family Medicine 10/21/24 12/06/24 Jess Marsh LPN [address] [facility] 110 [place] [address] 12/06/24 Esthela Tesfaye, KIRA [address] [place] [address] Quality Assurance Auditor Family Medicine 02/03/25 documented as of this encounter
--- OUTSIDE RECORDS SUMMARY | 2025-04-09 12:01 | XMS_ITS | Encounter Summary ---
Author Organization [facility] Address [address] [place] [address] Phone Care Team Providers Care Legal Collector Name Role Phone Yg James MD Primary Care Provider [phone] Shlomo Hu MD Primary Care Provider [phone] Encounter Details Date Type Department Care Team (Late st Contact Info) Description 05/27/2011 Scanned Document [facility] [address] [place] [id number] Scanning, Generic Provider Social History Tobacco Use [...] as of this encounter Care Teams Legal Collector Relationship Specialty Start Date End Date Yg James MD PCP - General 09/14/17 12/20/24 Shlomo Hu MD [address] [facility] 110 [place], [place] [address] PCP - General Internal Medicine 12/21/24 documented as of this encounter
--- OUTSIDE RECORDS SUMMARY | 2025-04-09 12:01 | XMS_ITS | Encounter Summary ---
Author Organization [facility] Address [address] [facility] [place] [address] Care Team Providers Care Marketing Assistant Manager Name Role Phone Shlomo Hu MD Primary Care Provider Jacob Sharp NARCOTICS AGENT Unavailable Thursday, Toya CENTER AISLE CASHIER Unavailable [phone] Shlomo Hu MD Unavailable [phone] Shante Kumar FIELD TAX AUDITOR-LIBRARIAN ASSISTANT Unavailable Claribel Scott RN Unavailable [phone] Jess Marsh CENTER AISLE CASHIER Unavailable Esthela Tesfaye HAND I CUTTER Unavailable [phone] Encounter Details Date Type Department Care Team (Late st Contact Info) Description 05/04/2023 Abstract [facility] [place] [facility] 112 [facility] 110 [place] [address] Shlomo Hu MD 112 [facility] 110 [place], [place] [id number] Social History Tobacco Use Types Packs/Day Years [...] week 03/01/2023 How often do you attend [facility] or muslim services? Patient declined 03/01/2023 Do you belong [...] medical care, and heating? Somewhat hard 03/01/2023 [facility] of Occupat ional Health - Occupational Stress [...] CI PODIATRY [address] [place] [address] Sonny Rodriguez DPM [address] [address] 05/04/2025 2:50 PM EDT Office Visit [facility] [address] [place] [address] Sonny Rodriguez DPM [address] [address] documented as of this encounter Visit Diagnoses Not on filedocumented in this encounter Care Teams Marketing Assistant Manager Relationship Specialty Start Date End Date Shlomo Hu MD [address] [place] [address] PCP - General Internal Medicine 02/15/23 Jacob Sharp, FELICITA [address] [place] [address] PCP - [place] [employer] 08/14/23 Shlomo Hu MD [address] [place] [address] PCP - [place] [employer] 05/15/2407/14 Shante Kumar, FIELD TAX AUDITOR-LIBRARIAN ASSISTANT [address] [place] [address] PCP - [place] [employer] 07/15/24 ThursdayToya LPN [address] [place] [address] Licensed Practical Nurse Family Medicine 01/19/24 10/21/24 Claribel Scott, PIETRO [address] [place] [address] Licensed Practical Nurse Family Medicine 10/21/24 12/06/24 Jess Marsh LPN 112 [facility] 110 [place] [address] 12/06/24 Esthela Tesfaye, KIRA [address] [place] [address] Finisher [employer] Family Medicine 02/03/25 documented as of this encounter
--- OUTSIDE RECORDS SUMMARY | 2025-04-09 12:01 | XMS_ITS | Encounter Summary ---
[facility] Organization [facility]-[id number] [address] [place] [address] Care Team Providers Care Stone Operator Name Role Phone JerichoGamal leivagarth Dumont APRN-MULTIPLE SLIDE OPERATOR Primary Care Provider + Encounter Details Date Type Department Care Team (Late st Contact Info) Description 08/05/2024 Telephone [facility] Obstetrics/Gynecology [address] [place] [address] Nithya Sinclair CMA Social History Tobacco [...] do you attend chur or scientologist services? Patient declined 05/08/2022 Do you belong [...] Answer Date Recorded Total Score 3 02/10/2024 [facility] of Occupat ional Health - Occupational [...] Recorded Do you need help finding a [facility] and/or a training program? [...] her vagina. Patient was recently discharged from [facility] and was on a lot of antibiotics. [...] as of this encounter Care Teams Stone Operator Relationship Specialty Start Date End Date Skylar Echavarria APRN-CNP [address] [place] [address] PCP - General Internal Medicine 11/18/23 documented as of this encounter
--- OUTSIDE RECORDS SUMMARY | 2025-04-09 12:01 | XMS_ITS | Encounter Summary ---
Author Organization [facility] Address [address] [facility] [place] [address] Care Team Providers Care Charge Auditor Name Role Phone Shlomo Hu MD Primary Care Provider Jacob Sharp PORTFOLIO ANALYST Unavailable Thursday, Toya GLASS PRODUCTION MACHINE OPERATOR Unavailable [phone] Shlomo Hu MD Unavailable [phone] Shante Kumar SOCIAL MEDIA MANAGER-SOLAR POWER INSTALLER Unavailable Claribel Scott RN Unavailable [phone] Jess Marsh GLASS PRODUCTION MACHINE OPERATOR Unavailable Esthela Tesfaye SYSTEM DEVELOPMENT ENGINEER Unavailable Encounter Details Date Type Department Care Team (Late st Contact Info) Description 06/08/2023 Abstract [facility] [place] [facility] [address] [facility] 110 [place] [address] Shlomo Hu MD 112 [facility] 110 [place], [place] [id number] Social History Tobacco Use Types Packs/Day Years [...] week 03/01/2023 How often do you attend [facility] or yazdanism services? Patient declined 03/01/2023 Do [...] medical care, and heating? Somewhat hard 03/01/2023 [facility] of Occupat ional Health - Occupational Stress [...] [address] [place] [address] Sonny Rodriguez, DPM [address] [address] 05/04/2025 2:50 PM EDT Office Visit [facility] [address] [place] [address] Sonny Rodriguez, DPM [address] [address] documented as of this encounter Visit Diagnoses Not on filedocumented in this encounter Care Teams Charge Auditor Relationship Specialty Start Date End Date Shlomo Hu MD [address] [facility] 110 [place] [address] PCP - General Internal Medicine 02/15/23 [place] [address] [place] [address] PCP - [place] [employer] 08/14/23 Shlomo Hu MD [address] [place] [address] PCP - [place] [employer] 05/15/2407/14 Shante Kumar APRN-SOLAR POWER INSTALLER [address] [place] [address] PCP - [place] [employer] 07/15/24 5 Juan CarlosToya LPN [address] [place] [address] Licensed Practical Nurse Family Medicine 01/19/24 10/21/24 Claribel Scott, RN [address] [place] [address] Licensed Practical Nurse Family Medicine 10/21/24 12/06/24 Jess Marsh LPN 112 [facility] [address] [place] [address] 12/06/24 Esthela Tesfaye, KIRA [address] [place] [address] Cow Tester Family Medicine 02/03/25 documented as of this encounter
--- OUTSIDE RECORDS SUMMARY | 2025-04-09 12:01 | XMS_ITS | Encounter Summary ---
Author Organization [facility] tem Address [id number] [address] [place] [address] Care Team Providers Care Regional Commercial Sales Manager Name Role Phone Skylar Echavarria Julia GARCIA-TITLE DEPARTMENT MANAGER Primary Care Provider + Encounter Details Date Type Department Care Team (Late st Contact Info) Description 07/15/2022 Orders Only [facility] Family Medicine [address] [place] [address] [address] Ref Prov, [place] [address] Social History Tobacco Use Types Packs/Day Years [...] attend chur or nondenominational services? Patient declined 05/08/2022 Do you belong [...] Answer Date Recorded Total Score 0 05/08/2022 [facility] of Occupat ional Health - Occupational Stress [...] Recorded Do you need help finding a [facility] career center and/or a training program? No [...] (07/07/2022) us Not In System Ref Prov [facility] Final Res ult MANUALLY TRANSCRIBED RESULTS documented in this encounter Visit Diagnoses Not on filedocumented in this encounter Additional Health Concerns Assessment Noted Time PHQ-9 Depression Total Score: 0 05/08/20 22 4:29 PM EDT A Body Mass Index follow-up plan has been documented for the patient 05/13/2022 11:13 AM EDT documented as of this encounter Care Teams Regional Commercial Sales Manager Relationship Specialty Start Date End Date Skylar Echavarria APRN-TITLE DEPARTMENT MANAGER [address] [place] [address] PCP - General Internal Medicine 11/18/23 documented as of this encounter
--- OUTSIDE RECORDS SUMMARY | 2025-04-09 12:01 | XMS_ITS | Encounter Summary ---
Author Organization [facility] Address [facility] [place] [address] Care Team Providers Care Assistant Corporation Counsel Name Role Phone Jacob Sharp Unavailable Aman Rasheeda TRUONG Unavailable [phone] Unavailable [phone] Fritz HENDERSON MD, Shlomo Momin Primary Care Provider [phone] Yuan Miller MD, PhD Unavailable [phone] Source Comments In the event this information is protected by the Federal Confidentiality of Alcohol and Drug AbusePatient Records regulations: The Federal rules restrict any use of the information to criminally investigate or prosecute any alcohol or drug abuse patient.[facility] Encounter Details Date Type Department Care Team (Late st Contact Info) Description 05/05/2024 Patient Msg Neurological Pentecostalism [address] [place] [address] Violeta Pennington MD [address] [place] [address] Appointment Request Social History Tobacco [...] 4 03/05/2023 Data from: https://www.[email or web address].medicine.[facility].edu/. Last address used for calculation [address] [...] 04/10/2025 10:00 AM EDT Hospital Encounter Admitting [address] [place] [address] Yuan Miller MD, PhD [address] [place] [address] Nausea and vomiting, unspecified vomiting type [R11.2], H/O bariatric surgery [Z98.84], Jejunostomy tube fell out [T85.528A] 04/10/2025 10:00 AM EDT - 04/10/2025 12:00 PM EDT Surgery Admitting [address]00 [place] [address] Yuan Miller MD, PhD [address] [place] [address] LAPAROSCOPIC JEJUNOSTOMY 04/19/2025 11:00 AM EDT [facility] Neurological Pentecostalism [address] [phone] Joann Loera, JOSE.INDUSTRIAL RELATIONS DIRECTOR [address] [place] [address] Cognitive movement issues 04/21/2025 8:30 AM EDT [facility] Nutrition Therapy [address] [id number] Tiffany Banks, RD [address] [id number] f/u TF forula tolerance and hydration 05/18/2025 9:00 AM T [facility] General Surgery [address] [phone] Michael Mora PA-C [address] [place] [address] f/u with michael mora in 2 wks 05/29/2025 9:00 AM T [facility] Gastroenterology [address] [phone] Johanna Martinez MD [facility] [address] [place], [place] [address] 3 month follow up 06/28/2025 10:00 AM T [facility] Neurology Pain [address] [phone] [place] [address] [place] [address] Follow up for pain Scheduled Procedures Name [...] as of this encounter Care Teams Assistant Corporation Counsel Relationship Specialty Start Date End Date Shlomo Hu II, MD [address] [facility] 110 [place] [address] PCP - General Internal Medicine 10/06/23 Jacob Sharp [address] [place] [address] Referring 04/30/[address] [id number] Registered Dietitian Nutrition 06/24/[address] [place] [address] Registered Dietitian Nutrition 08/27/23 Yuan Miller MD, PhD 9500 [place] [address] Surgeon General Surgery 02/03/24 documented as of this encounter
--- OUTSIDE RECORDS SUMMARY | 2025-04-09 12:01 | XMS_ITS | Encounter Summary ---
Author Organization [facility] Address [facility]-[id number] [address] [place] [address] Care Team Providers Care Deliverer Outside Name Role Phone Skylar Echavarria APRN-SCHOOL HEALTH AIDE Primary Care Provider + Reason for Visit * Reason Comments Med Refill Encounter Details Date Type Department Care Team (Late st Contact Info) Description 07/03/2022 Refill [facility] Internal Medicine - Family Medicine [address] [phone] Yg Benítez, DO [address] [phone] Social History Tobacco Use Types Packs/Day Years [...] often do you attend chur ch or latter-day services? Patient declined 05/08/2022 Do you belong [...] Answer Date Recorded Total Score 0 05/08/2022 [facility] [place] of Occupat ional Health - Occupational Stress [...] documented as of this encounter Care Teams Deliverer Outside Relationship Specialty Start Date End Date Skylar Echavarria APRN-SCHOOL HEALTH AIDE [address] [place] [address] PCP - General Internal Medicine 11/18/23 documented as of this encounter
--- OUTSIDE RECORDS SUMMARY | 2025-04-09 12:01 | XMS_ITS | Encounter Summary ---
Author Organization [facility] Address [facility][id number] [address] [place] [address] Care Team Providers Care Deputy Coroner Investigator Name Role Phone Skylar Echavarria APRN-ADMINISTRATIVE PROFESSIONAL Primary Care Provider + Reason for Visit * Reason Comments Med Refill Encounter Details Date Type Department Care Team (Late st Contact Info) Description 06/27/2022 Refill [facility] Internal Medicine - Family Medicine [address] [phone] Yg Benítez, DO [address] [phone] Social History Tobacco Use Types Packs/Day Years [...] often do you attend chur ch or anabaptist services? Patient declined 05/08/2022 Do you belong [...] Answer Date Recorded Total Score 0 05/08/2022 [facility] [place] of Occupat ional Health - Occupational Stress [...] documented as of this encounter Care Teams Deputy Coroner Investigator Relationship Specialty Start Date End Date Skylar Echavarria APRN-ADMINISTRATIVE PROFESSIONAL [address] [place] [address] PCP - General Internal Medicine 11/18/23 documented as of this encounter
--- OUTSIDE RECORDS SUMMARY | 2025-04-09 12:01 | XMS_ITS | Encounter Summary ---
Author Organization [facility] tem Address [facility]-P61416 [address] [place] [address] Care Team Providers Care Baby Registry Sales Consultant Name Role Phone Skylar Echavarria Julia GARCIA-PRODUCT MANAGEMENT INTERN Primary Care Provider + Encounter Details Date [...] How often do you attend chur or congregational services? Patient declined 05/08/2022 Do you belong to any clubs o r organizations such as jehovah's witness groups, unions, fraternal or athletic groups, or [...] Answer Date Recorded Total Score 15 08/17/2024 [facility] of Occupat ional [...] documented as of this encounter Care Teams Baby Registry Sales Consultant Relationship Specialty Start Date End Date Skylar Echavarria APRN-PRODUCT MANAGEMENT INTERN [address] [place] [address] PCP - General Internal Medicine 11/18/23 documented as of this encounter
--- OUTSIDE RECORDS SUMMARY | 2025-04-09 12:01 | XMS_ITS | Encounter Summary ---
Author Organization [facility] Address [facility] [place] [address] Care Team Providers Care Superintendent Job Name Role Phone Jacob Sharp Unavailable Aman Rasheeda TRUONG Unavailable [phone] Unavailable [phone] Fritz HENDERSON MD, Shlomo Momin Primary Care Provider [phone] Yuan Miller MD, PhD Unavailable [phone] Source Comments In the event this information is protected by the Federal Confidentiality of Alcohol and Drug AbusePatient Records regulations: The Federal rules restrict any use of the information to criminally investigate or prosecute any alcohol or drug abuse patient.[facility] Encounter Details Date Type Department Care Team (Late st Contact Info) Description 05/09/2024 Get Medical Advice [facility]rological [facility] [address] [place] [address] Violeta Pennington MD [address] [place] [address] Symptoms Social History Tobacco Use [...] 04/10/2025 10:00 AM EDT Hospital Encounter Admitting [facility] [place] [address] Yuan Miller MD, PhD [address] [place] [address] Nausea and vomiting, unspecified vomiting type [R11.2], H/O bariatric surgery [Z98.84], Jejunostomy tube fell out [T85.528A] 04/10/2025 10:00 AM EDT - 04/10/2025 12:00 PM EDT Surgery Admitting [address] [place] [address] Yuan Miller MD, PhD [facility] [place] [address] LAPAROSCOPIC JEJUNOSTOMY 04/19/2025 11:00 AM EDT [facility] Neurological Temple [address] [phone] Joann Loera, JOSE.TIRE BUILDER [address] [place] [address] Cognitive movement issues 04/21/2025 8:30 AM EDT [facility] Nutrition Therapy [address] [address] Tiffany Banks, RD [address] [id number] f/u TF forula tolerance and hydration 05/18/2025 9:00 AM EDT [facility] General Surgery [address] [phone] Michael Mora PA-C [address]00 [place] [address] f/u with michael mora in 2 wks 05/29/2025 9:00 AM EDT [facility] Gastroenterology [address] [place] [address] Johanna Martinez MD [facility] [address] [phone] 3 month follow up 06/28/2025 10:00 AM EDT [facility] Neurology Pain [address] [place] [address] [place] [address] [address] [phone] Follow up for pain Scheduled Procedures Name [...] as of this encounter Care Teams Superintendent Job Relationship Specialty Start Date End Date Shlomo Hu II, MD [address] [facility] 110 [place] [address] PCP - General Internal Medicine 10/06/23 Jacob Sharp [address] [place] [address] Referring 04/30/[address] [place], [place] [phone] Registered Dietitian Nutrition 06/24/[address] [place] [address] Registered Dietitian Nutrition 08/27/23 Yuan Miller MD, PhD 9500 [place] [address] Surgeon General Surgery 02/03/24 documented as of this encounter
--- OUTSIDE RECORDS SUMMARY | 2025-04-09 12:01 | XMS_ITS | Encounter Summary ---
Author Organization [facility] Address [address] [place] [address] Phone Care Team Providers Care Cell Tender Helper Name Role Phone Yg James MD Primary Care Provider [phone] Shlomo Hu MD Primary Care Provider [phone] Encounter Details Date Type Department Care Team (Late st Contact Info) Description 05/10/2011 Scanned Document [facility] [address] [place] [phone] Scanning, Generic Provider Social History Tobacco Use [...] documented as of this encounter Care Teams Cell Tender Helper Relationship Specialty Start Date End Date Yg James MD PCP - General 09/14/17 12/20/24 Shlomo Hu MD [address] [facility] 110 [place], [place] [address] PCP - General Internal Medicine 12/21/24 documented as of this encounter
--- OUTSIDE RECORDS SUMMARY | 2025-04-09 12:01 | XMS_ITS | Encounter Summary ---
Author Organization [facility] Address [address] [place] [address] Care Team Providers Care Street And Building Decorator Name Role Phone Shlomo Hu MD Primary Care Provider [phone] Jacob Sharp FAMILY NURSE Unavailable Thursday, Toya MILL TURNER Unavailable [phone] Shlomo Hu MD Unavailable [phone] Shante Kumar INFRASTRUCTURE ENGINEER-RECEIVABLE EXECUTIVE Unavailable Claribel Scott RN Unavailable [phone] Jess Marsh MILL TURNER Unavailable Esthela Tesfaye BUSINESS PROCESS CONSULTANT Unavailable [phone] Encounter Details Date Type Department Care [...] medical care, and heating? Somewhat hard 03/01/2023 [facility] of Occupat [...] [address] [place] [address] Sonny Rodriguez, DPM [address] [address] 05/04/2025 2:50 PM EDT Office Visit [facility] [address] [facility] [facility] 120 [place] [address] Sonny Rodriguez, DPM [address] [address] documented as of this encounter Procedures Procedure [...] Type: BLOOD SPECIMEN Ordering Facility: [facility] Address: [address] [place] [address] Original Ordering Provider: RIP RIDLEY Generic External Data Provider [facility] F inal Result Performing Organization Address [facility] de Phone Number [facility] CC [address] [place] [address] * [facility] VIT B12 SERPL-MCNC (06/26/2023 11:08 AM EDT) Pathologist [facility] VIT B12 SERPL-MCNC 434 232 - 1,245 pg/mL [facility] 06/26/2023 11:0 8 AM EDT 06/26/2023 4:46 PM EDT Narrative [facility]IN[facility] - 06/26/2023 9:44 PM EDT Specimen Type: BLOOD SPECIMEN Ordering Facility: [facility] Address: [address] [place] [address] Original Ordering Provider: MAGED PERSAUD Generic External Data Provider [facility] F inal Result Performing Organization Address [facility] de Phone Number [facility] CC [address] [place] [address] * (ABNORMAL) [facility] 25(OH)D3 SERPL-MCNC (06/26/2023 11:08 AM EDT) Pathologist [facility] 25(OH)D3 SERPL-MCNC 19.6(L) 31.0 - 80.0 ng/mL CCF Comment: Classification of 25 [place] Vitamin D status: Deficiency/Insufficiency: < or = 30 ng/ml. Sufficiency/Optimal Levels: 31-80 ng/mL Toxicity: > 100 ng/mL. Test performed by chemiluminescent immunoassay. 06/26/2023 11:0 8 AM EDT 06/26/2023 4:55 PM EDT Narrative CL[facility] - 06/26/2023 8:51 PM EDT Specimen Type: BLOOD SPECIMEN Ordering Facility: [facility] Address: [address] [place] [address] Original Ordering Provider: MAGED PERSAUD Generic External Data Provider [facility] F inal Result Performing Organization Address [facility] de Phone Number [facility] CCF [address] [place] [address] * [facility] IRON+TIBC PNL SERPL (06/26/2023 11:08 AM EDT) [facility] IRON SERPL-MCNC 109 41 - 186 ug/dL [facility] CCF TIBC SERPL-MCNC 364 232 - 386 ug/dL C[facility] CCF IRON/TIBC SERPL-SRTO 29.9 15.0 - 57.0 % [facility] 06/26/2023 11:0 8 AM EDT 06/26/2023 4:46 PM EDT Narrative CLINISYNC - 06/26/2023 8:50 PM EDT Specimen Type: BLOOD SPECIMEN Ordering Facility: [facility] Address: [address] [place] [address] Original Ordering Provider: RIP RIDLEY Generic External Data Provider CLIN[facility] F inal Result Performing Organization Address [facility] de Phone Number [facility] [address] [id number] * [facility] CRP SERPL-MCNC (06/26/2023 11:08 AM EDT) [facility] CRP SERPL-MCNC <0.3 <0.9 mg/dL [facility] 06/26/2023 11:0 8 AM EDT 06/26/2023 4:46 PM EDT Narrative [facility] - 06/26/2023 8:50 PM EDT Specimen Type: BLOOD SPECIMEN Ordering Facility: [facility] Address: [address] [place] [address] Original Ordering Provider: MAGED PERSAUD us Generic External Data Provider MONIKA Lynch inalinda Result MONIKA CHAVIRA [address] [facility] [address] [place] [address] * (ABNORMAL) [facility] COMP METAB 2000 PNL [...] 74 - 99 mg/dL [facility] Comment: The French Diabetes Association (ADA) provides guidance for cutoff [...] Standards of Medical Care in Diabetes 2016, French Diabetes Association. Diabetes Care. 2016.39(Suppl 1). [facility] [...] 11:08 AM EDT Narrative CL[facility] - 06/26/2023 11:33 AM EDT Specimen Type: BLOOD SPECIMEN Ordering Facility: [facility] Address: [address] [place] [address] Original Ordering Provider: MAGED PERSAUD Authorandrade Provider Result Type Result Stat Generic External Data Provider MONIKA jamison Result [facility] CC [address] [place] [address] * [facility] RETICS # (06/26/2023 11:08 AM EDT) [facility] RETICS/100 RBC NFR 1.6 0.4 - 2.0 % [facility] RETICS # 0.071 0.018 - 0.100 M/uL [facility] 06/26/2023 11:0 8 AM EDT 06/26/2023 11:08 AM EDT Narrative CLINISYNC - 06/26/2023 11:12 AM EDT Specimen Type: BLOOD SPECIMEN Ordering Facility: [facility] Address: [address] [place] [address] Original Ordering Provider: RIP RIDLEY us Generic External Data Provider MONIKA jamison Result MONIKA CHAVIRA [address] [place] [address] * [facility] CBC W AUTO DIFF BLD [...] Type: BLOOD SPECIMEN Ordering Facility: [facility] Address: [address] [place] [address] Original Ordering Provider: RIP RIDLEY Authoranrdade Provider Result Type Result Stat us Generic External Data Provider MONIKA jamison Result Performing Organization Address City/State/[facility] Co de Phone Number CLINROBERTONC [facility] [address] [place] [address] * UPPER EUS (06/26/2023 7:59 AM EDT) [...] GI/Bariatric Endoscopy clinic. Please call for appointments [phone] or [phone]. Procedure Code(s): --- Professional --- 54729, Esophagogastroduodenoscopy, flexible, transoral; with endoscopic ultrasound examination limited to the esophagus, stomach or duodenum, and adjacent structures Diagnosis Code(s): --- Professional --- R10.13, Epigastric pain R19.7, Diarrhea, unspecified CPT copyright 2020 French Medical Association. All rights reserved. Attending Participation: [...] GI/Bariatric Endoscopy clinic. Please call for appointments [phone] or [phone]. Procedure Code(s): --- Professional --- 86275, Esophagogastroduodenoscopy, flexible, transoral; with endoscopic ultrasound examination limited to the esophagus, stomach or duodenum, and adjacent structures Diagnosis Code(s): --- Professional --- R10.13, Epigastric pain R19.7, Diarrhea, unspecified CPT copyright 2020 French Medical Association. All rights reserved. Attending Participation: I personally performed the entire procedure. Scope In: 8:14:52 AM Scope Out: 8:24:[address] Magaly Andrade MD 06/26/2023 8:31:40 AM This report has been signed electronically by Magaly Andrade MD Number of Addenda: 0 Note Initiated On: 06/26/2023 7:59 AM Generic External Data Provider [facility] Final Result documented in this encounter Visit Diagnoses Not on filedocumented in this encounter Care Teams Street And Building Decorator Relationship Specialty Start Date End Date Shlomo Hu MD [address] [address] PCP - General Internal Medicine 02/15/23 [place] [address] [place] [address] PCP - [place] [employer] 08/14/23 Shlomo Hu MD [address] [address] PCP - [place] [employer] 05/15/2407/14 Shante Kumar, INFRASTRUCTURE ENGINEER-RECEIVABLE EXECUTIVE [address] [place] [address] PCP - [place] [employer] 07/15/24 ThursdayToya LPN [address] [place] [address] Licensed Practical Nurse Family Medicine 01/19/24 10/21/24 Claribel Scott, RN [address] [place] [address] Licensed Practical Nurse Family Medicine 10/21/24 12/06/24 Jess Marsh LPN [address] [facility] 110 [place] [address] 12/06/24 Esthela Tesfaye, BUSINESS PROCESS CONSULTANT [address] [place] [address] Biodiesel Processing Technician Family Medicine 02/03/25 documented as of this encounter
--- OUTSIDE RECORDS SUMMARY | 2025-04-09 12:01 | XMS_ITS | Encounter Summary ---
Author Organization [facility] Address [address] [place] [address] Care Team Providers Care Track Moving Machine Operator Name Role Phone Jacob Sharp Unavailable Rasheeda Newton RD Unavailable [phone] Unavailable [phone] Fritz HENDERSON MD, Shlomo Momin Primary Care Provider [phone] Yuan Miller MD, PhD Unavailable [phone] Source Comments In the event this information is protected by the Federal Confidentiality of Alcohol and Drug AbusePatient Records regulations: The Federal rules restrict any use of the information to criminally investigate or prosecute any alcohol or drug abuse patient.[facility] Encounter Details Date Type Department Care Team (Late st Contact Info) Description 04/18/2024 Patient Msg PAIN [place]T [address] MANA[address] [facility] [address] [phone] Provider, Ccf ketamine infusion Social History Tobacco [...] is lower risk 4 03/05/2023 Data from: https://www.neighborhoodatlas.medicine.[facility].edu/. Last address used for calculation [address] [...] 04/10/2025 10:00 AM EDT Hospital Encounter Admitting [address] [place] [address] Yuan [place], [place] [address] [place] [address] Nausea and vomiting, unspecified vomiting type [R11.2], H/O bariatric surgery [Z98.84], Jejunostomy tube fell out [T85.528A] 04/10/2025 10:00 AM EDT - 04/10/2025 12:00 PM EDT Surgery Admitting 95[address] [place] [address] Yuan Miller MD, PhD [address] [phone] LAPAROSCOPIC JEJUNOSTOMY 04/19/2025 11:00 AM EDT [facility] Neurological Methodist [address] [phone] Joann Loera APRN.BOXING PROMOTER [address] [phone] Cognitive movement issues 04/21/2025 8:30 AM EDT [facility] Nutrition Therapy [address] [phone] Tiffany Banks, RD 9500 [place] [address] f/u TF forula tolerance and hydration 05/18/2025 9:00 AM EDT [facility] General Surgery [address] [place] [address] Michael Mora PA-C 9500 [place] [address] f/u with michael mora in 2 wks 05/29/2025 9:00 AM EDT [facility] Gastroenterology 20[address] [place] [address] [facility] [address] [place], [place] [phone] 3 month follow up 06/28/2025 10:00 AM EDT [facility] Neurology Pain [address] [phone] [place] [address] [address] [phone] Follow up for pain Scheduled Procedures Name [...] documented as of this encounter Care Teams Track Moving Machine Operator Relationship Specialty Start Date End Date Shlomo Hu II, MD [address] [facility] 110 [place] [address] PCP - General Internal Medicine 10/06/23 Jacob Sharp [address] [place] [address] Referring 04/30/[address] 4012006 Registered Dietitian Nutrition 06/24/[address] [place] [address] Registered Dietitian Nutrition 08/27/23 Yuan Miller MD, PhD [facility] [place] [address] Surgeon General Surgery 02/03/24 documented as of this encounter
--- OUTSIDE RECORDS SUMMARY | 2025-04-09 12:01 | XMS_ITS | Encounter Summary ---
Author Organization [facility] Address [address] [facility] [place] [address] Care Team Providers Care Rn Staffing Name Role Phone Shlomo Hu MD Primary Care Provider Jacob Sharp MANAGEMENT TRAINEE MARKETING Unavailable [phone] Thursday, Toya EZPAWN SALES AND LENDING TEAM MEMBER Unavailable [phone] Shlomo Hu MD Unavailable [phone] Shante Kumar ASSESSMENT ANALYST-LIMNOLOGY TEACHER Unavailable Claribel Scott RN Unavailable Jess Marsh [employer] SAL[employer] TEAM MEMBER Unavailable Esthela Tesfaye BUILDER'S LABOURER Unavailable Encounter Details Date Type Department Care Team (Late st Contact Info) Description 06/04/2023 Abstract [facility] [place] [facility] 112 [facility] 110 [place] [address] Shlomo Hu MD 112 [facility] 110 [place], [place] [phone] Social History Tobacco Use Types Packs/Day Years [...] often do you attend [facility] or anabaptism services? Patient declined 03/01/2023 Do you belong [...] medical care, and heating? Somewhat hard 03/01/2023 [facility] of Occupat ional Health - Occupational Stress [...] [address] [place] [address] Sonny Rodriguez, DPM [address] [address] 05/04/2025 2:50 PM EDT Office Visit [facility] [address] [place] [address] Sonny Rodriguez, DPM [address] [address] documented as of this encounter Visit Diagnoses Not on filedocumented in this encounter Care Teams Rn Staffing Relationship Specialty Start Date End Date Shlomo Hu MD [address] [facility] 110 [place] [address] PCP - General Internal Medicine 02/15/23 [place] [address] [place] [address] PCP - [employer] 08/14/23 Shlomo Hu MD [address] [place] [address] PCP - [employer] 05/15/2407/14 Shante Kumar APRN-LIMNOLOGY TEACHER [address] [place] [address] PCP - [employer] 07/15/24 5 Juan CarlosToya LPN [address] [place] [address] Licensed Practical Nurse Family Medicine 01/19/24 10/21/24 Claribel Scott, RN [address] [place] [address] Licensed Practical Nurse Family Medicine 10/21/24 12/06/24 Jess Marsh LPN 112 [facility] [address] [place] [address] 12/06/24 Esthela Tesfaye, KIRA [address] [place] [address] Group Fitness Assistant Department Head Family Medicine 02/03/25 documented as of this encounter
--- OUTSIDE RECORDS SUMMARY | 2025-04-09 12:01 | XMS_ITS | Encounter Summary ---
Author Organization [facility] [employer] Address [id number] [address] [place] [address] Care Team Providers Care Bond Analyst Name Role Phone Jericho, Skylar Dumont APRN-ASPHALT HEATER TENDER Primary Care Provider + Encounter Details Date Type Department Care Team (Late st Contact Info) Description 12/09/2023 Orders Only [facility] Internal Medicine - Family Medicine [address] [place] [address] Sandrita Rodriguez CMA Severe protein-calorie malnutrition ([facility]) Social History Tobacco Use Types Packs/Day [...] Answer Date Recorded Total Score 0 12/03/2023 [facility] of Occupat [facility] - Occupational Stress Questionnaire Answer Date [...] Recorded Do you need help finding a [facility] and/or a training program? No [...] labs (12/02/2023 2:16 PM EDT) Skylar Echavarria APRN-ASPHALT HEATER TENDER HI IMAGING Final Re sult MANUALLY TRANSCRIBED RESULTS * Zinc (12/02/2023 10:42 AM EDT) Zinc 594 [facility] Blood 12/02/2023 10:4 2 AM EDT Skylar Echavarria APRN-ASPHALT HEATER TENDER LAB BLOOD ORDERABLES Fin al Result [facility] * Copper, serum (12/02/2023 10:42 AM EDT) Copper 125 [facility] Blood 12/02/2023 10:4 2 AM EDT Skylar Echavarria PATIENT LIAISON-ASPHALT HEATER TENDER LAB BLOOD ORDERABLES Fin al Result Performing Organization Address [facility] [place] [facility] de Phone Number [facility] * Vitamin A (Retinol) (12/02/2023 10:42 AM EDT) Free retinol vit A 17.9 L [facility] Blood 12/02/2023 10:4 2 AM EDT Skylar Echavarria APRN-ASPHALT HEATER TENDER LAB BLOOD ORDERABLES Fin al Result Performing Organization Address [facility] de Phone Number [facility] documented in this encounter Visit Diagnoses Diagnosis Severe protein-calorie malnutrition Other severe protein-calorie malnutrition documented in this encounter Additional Health Concerns Assessment Noted Time PHQ-9 Depression Total Score: 0 12/03/19 11:11 AM EDT A Body Mass Index follow-up plan has been documented for the patient 05/13/2022 11:13 AM EDT documented as of this encounter Care Teams Bond Analyst Relationship Specialty Start Date End Date Skylar Echavarria APRN-CNP [address] [place] [address] PCP - General Internal Medicine 11/18/23 documented as of this encounter
--- OUTSIDE RECORDS SUMMARY | 2025-04-09 12:01 | XMS_ITS | Encounter Summary ---
Author Organization [facility] Address [address] [place] [address] Phone Care Team Providers Care Shake Maker Name Role Phone Yg James MD Primary Care Provider [phone] Shlomo Hu MD Primary Care Provider Encounter Details Date Type Department Care Team (Late st Contact Info) Description 11/12/2011 Scanned Document [facility] [address] [place] [place] [phone] Scanning, Generic Provider Social History Tobacco Use [...] documented as of this encounter Care Teams Shake Maker Relationship Specialty Start Date End Date Yg James MD PCP - General 09/14/17 12/20/24 Shlomo uH MD [address] [facility] 110 [place], [place] [phone] PCP - General Internal Medicine 12/21/24 documented as of this encounter
--- OUTSIDE RECORDS SUMMARY | 2025-04-09 12:01 | XMS_ITS | Clinical Summary ---
Author Organization [employer] Address [id number] [address] [place] [address] Care Team Providers Care Pattern Checker Name Role Phone Jericho, Skylar Dumont APRN-MARKETING REP Primary Care Provider + Allergies Active Allergy [...] (5 mg total) by mouth nightly. Active npnhjn-deixhkvz-hr ylase (CREON) 24,000-76,000 -120,000 unit capsule,delayed release(DR/EC) [...] by mouth once daily Active vitamin A 91607 units capsule take 1 capsule by mouth [...] mass 11/04/2007 12/03/2023 Overview (12/03/2023): Right, biopsy Encounters Date Type Department Care Team Description 04/06/2025 12:27 PM EDT - 04/06/2025 11:59 PM EDT Hospital Encounter [facility]iology [address] [place] [phone] History of campylobacteriosis Discharge Disposition: Home 04/06/2025 Travel from Last 3 Months Family History Medical History Relation Name Comments [...] Answer Date Recorded Total Score 15 08/17/2024 [facility] of Occupat ional [...] Td or Tdap) 04/20/2016 04/20/2006 COVID-19 Vaccine (3 2023-2 5 season) 2024 01/09/2021, 12/19/2020 Influenza Vaccine 05/15/2025 05/27/2024, , 06/16/2022, Additional history exists Adult BMI Follow Up Plan 08/17/2025 08/17/2024 Depression Screening 08/17/2025 08/17/2024 Adult BMI Screening 09/21/2025 09/21/2024 Tobacco Screening 09/21/2025 09/21/2024 Mammogram 03/09/2026 03/09/2025, 06/0 12/2024, 06/03/2023, Additional history exists Goals Goal Patient Goal Type Associated Problems Recent Progress Patient-Stated? Author safe discharge to home General Yes Soledad Oliva, RN Note: Evaluation of progress towards goal: safe transition from hospital to home with family support. Medical Devices Not on file Procedures Procedure Name Priority Date/Time Associated Diagnosis Comments IR PICC LINE PICC RN WO 5+ W GUIDANCE Routine 04/06/2025 2:22 PM EDT History of campylobacteriosis from Last 3 Months Results * IR PICC line PICC RN [...] to you in MyChart. us Angelina Polk OCCUPATIONAL HEALTH SPECIALIST-MARKETING REP IMG IR ORDERABLES Edited R esult - Final from Last 3 Months Insurance ANTH Advance Directives * Full Code (Latest Code Status on File) Date Activated Date Inactivated Comments 04/08/2022 10:48 AM 04/11/2022 6:46 PM * Full Code Date Activated Date Inactivated Comments 05/16/2021 11:18 AM 05/17/2021 7:26 PM Care Teams Pattern Checker Relationship Specialty Start Date End Date Skylar Echavarria, OCCUPATIONAL HEALTH SPECIALIST-MARKETING REP [address] [place] [address] PCP - General Internal Medicine 11/18/23
--- OUTSIDE RECORDS SUMMARY | 2025-04-09 12:01 | XMS_ITS | Encounter Summary ---
Author Organization [facility] Address [address] [facility] [place] [address] Care Team Providers Care Metal Washing Machine Operator Name Role Phone Shlomo Hu MD Primary Care Provider Jacob Sharp PRODUCTION REPAIRER Unavailable [phone] Thursday, Toya OPEN HEARTH FURNACE OPERATOR Unavailable [phone] Shlomo Hu MD Unavailable [phone] Shante Kumar BOOSTER PUMP OPERATOR-CABLE SPOOLER Unavailable Claribel Scott RN Unavailable Jess Marsh OPEN HEARTH FURNACE OPERATOR Unavailable Esthela Tesfaye RAIL CAR WELDER Unavailable [phone] Encounter Details Date Type Department Care Team (Late st Contact Info) Description 08/24/2023 Abstract [facility] [place] [facility] 112 [facility] 110 [place] [address] Shlomo Hu MD 112 [facility] 110 [place], [place] [phone] Social History Tobacco Use Types Packs/Day Years [...] week 03/01/2023 How often do you attend [facility] or zoroastrian services? Patient declined 03/01/2023 Do you belong [...] 6 08/26/2023 [employer] [place] of Occupat ional Health - Occupational Stress [...] things Nearly every day 08/26/2023 1:30 PM Martha Benavides i, LPN Feeling down, depressed, or hopeless Nearly every day 08/26/2023 1:30 PM EST Elvia Grajeda LP N Patient Health Questionnaire-2 Score 6 08/26/2023 1:30 PM EST Elvia Grajeda LPN * Question Answer Date of Assessment Author Trouble falling or staying asleep, or sleeping too much Not at all 08/26/2023 1:30 PM Elvia Benavides LP N Feeling tired or having little energy Not at all 08/26/2023 1:30 PM Elvia Benavides LP N Poor appetite or overeating Not at all 08/26/2023 1:30 PM EST Elvia Grajeda LP N Feeling bad about yourself - or that you are a failure or have let yourself or your family down Nearly every day 08/26/2023 1:30 PM Elvia Benavides LP N Trouble concentrating on things, such as reading the newspaper or watching television Not at all 08/26/2023 1:30 PM EST Elvia Grajeda LP N Moving or speaking so slowly that other people could have noticed? Or the opposite - being so fidgety or restless that you have been moving around a lot more than usual. Not at all 08/26/2023 1:30 PM Elvia Benavides LP N Thoughts that you would be better off or hurting yourself in some way Not at all 08/26/2023 1:30 PM Elvia Benavides L PN Patient Health Questionnaire-9 Score 9 08/26/2023 1:30 PM EST Elvia Grajeda LPN documented as of this encounter Plan of Treatment Upcoming Encounters Date Type Department Care Team (Late st Contact Info) Description 04/20/2025 3:00 PM EDT Office Visit [facility] 112 [facility] 120 [place] [address] Sonny Rodriguez, DPM 3006 [facility] 5 [place] [address] 05/04/2025 2:50 PM EDT Office Visit [facility] [address] [facility] 120 [place] [address] Sonny Rodriguez DPLudmila 3006 [facility] 5 [place] [address] documented as of this encounter Visit Diagnoses Not on filedocumented in this encounter Care Teams Metal Washing Machine Operator Relationship Specialty Start Date End Date Shlomo Hu MD 112 [facility] 110 [place] [address] PCP - General Internal Medicine 02/15/23 [place] [address] [place] [address] PCP - [place] [employer] 08/14/23 Shlomo Hu MD 112 [facility] 110 [place] [address] PCP - [place] 05/15/2407/14 Shante Kumar APRN-CABLE SPOOLER [address] [facility] 160 [place] [address] PCP - [place] [employer] 07/15/24 ThursdayToya LPN [address] [facility] 110 [place] [address] Licensed Practical Nurse Family Medicine 01/19/24 10/21/24 Claribel Scott, PIETRO [address] [place] [address] Licensed Practical Nurse Family Medicine 10/21/24 12/06/24 Jess Marsh LPN [address] [address] 12/06/24 Esthela Tesfaye, RAIL CAR WELDER [address] [place] [address] Senior Group Manager Family Medicine 02/03/25 documented as of this encounter
--- OUTSIDE RECORDS SUMMARY | 2025-04-09 12:01 | XMS_ITS | Encounter Summary ---
Author Organization [facility] Address [address] [facility] [place] [address] Care Team Providers Care Oil Rag Washer Name Role Phone Shlomo Hu MD Primary Care Provider Jacob Sharp SKI PATROL DIRECTOR Unavailable Thursday, Toya ROTOR CASTING MACHINE OPERATOR Unavailable [phone] Shlomo Hu MD Unavailable [phone] Shante Kumar CITY ROUTEMAN-RIDING DOUBLE Unavailable Claribel Scott RN Unavailable Jess Marsh ROTOR CASTING MACHINE OPERATOR Unavailable Esthela Tesfaye WEB METHODS DEVELOPER Unavailable Encounter Details Date Type Department Care Team (Late st Contact Info) Description 06/25/2023 Abstract [facility] [place] [facility] 112 [facility] 110 [place] [address] Shlomo Hu MD 112 [facility] 110 [place], [place] [phone] Social History Tobacco Use Types Packs/Day Years [...] often do you attend [facility] or jew services? Patient declined 03/01/2023 [...] medical care, and heating? Somewhat hard 03/01/2023 [facility] [place] of Occupat ional Health - Occupational Stress [...] [address] [place] [address] Sonny Rodriguez, DPM [address] [address] 05/04/2025 2:50 PM EDT Office Visit [facility] [address] [place] [address] Sonny Rodriguez, DPM [address] [address] documented as of this encounter Visit Diagnoses Not on filedocumented in this encounter Care Teams Oil Rag Washer Relationship Specialty Start Date End Date Shlomo Hu MD [address] [facility] 110 [place] [address] PCP - General Internal Medicine 02/15/23 [place] [address] [place] [address] PCP - [place] [employer] 08/14/23 Shlomo Hu MD [address] [place] [address] PCP - [place] [employer] 05/15/2407/14 Shante Kumar APRN-RIDING DOUBLE [address] [place] [address] PCP - [place] [employer] 07/15/24 5 Juan CarlosToya LPN [address] [place] [address] Licensed Practical Nurse Family Medicine 01/19/24 10/21/24 Claribel Scott, RN [address] [place] [address] Licensed Practical Nurse Family Medicine 10/21/24 12/06/24 Jess Marsh LPN 112 [facility] [address] [place] [address] 12/06/24 Esthela Tesfaye, KIRA [address] [place] [address] Technology Infusion Specialist Family Medicine 02/03/25 documented as of this encounter
--- OUTSIDE RECORDS SUMMARY | 2025-04-09 12:01 | XMS_ITS | Encounter Summary ---
Author Organization [facility] Address [address] [place] [address] Care Team Providers Care Seat Nailer Name Role Phone Jacob Sharp Unavailable Rasheeda Newton RD Unavailable [phone] Unavailable [phone] Fritz HENDERSON MD, Shlomo B Primary Care Provider [phone] Yuan Miller MD, PhD Unavailable [phone] Source Comments In the event this [...] 04/20/2024 Get Medical Advice General Surgery [address] [place] [address] Michael Mora PA-C [address] [place] [address] Feeding tube Social History Tobacco [...] 4 03/05/2023 Data from: https://www.neighborhoodatlas.medicine.[facility].edu/. Last address used for [...] 10:00 AM EDT Hospital Encounter Admitting [address] [place] [address] [place] [address] [place] [address] Nausea and vomiting, unspecified vomiting type [R11.2], H/O bariatric surgery [Z98.84], Jejunostomy tube fell out [T85.528A] 04/10/2025 10:00 AM EDT - 04/10/2025 12:00 PM EDT Surgery Admitting [address] [place] [address] Yuan Miller MD, PhD [address] [place] [address] LAPAROSCOPIC JEJUNOSTOMY 04/19/2025 11:00 AM EDT [facility] Neurological Mandaen [address] [phone] Joann Loera, MOTORCYCLE POLICE OFFICER.CAR STEREO INSTALLER 9500 [place] [address] Cognitive movement issues 04/21/2025 8:30 AM EDT [facility] Nutrition Therapy [address] [phone] Tiffany Banks, RD [address] [phone] f/u TF forula tolerance and hydration 05/18/2025 9:00 AM T [facility] General Surgery [address] [phone] Michael Mora PA-C [address] [phone] f/u with michael mora in 2 wks 05/29/2025 9:00 AM T [facility] Gastroenterology [address] [phone] Johanna Martinez MD [facility] [address] [phone] 3 month follow up 06/28/2025 10:00 AM T [facility] Neurology Pain [address] [place] [address] [place] [address] [place] [address] Follow up for pain Scheduled Procedures Name [...] documented as of this encounter Care Teams Seat Nailer Relationship Specialty Start Date End Date Shlomo Hu II, MD 112 [facility] 110 [place] [address] PCP - General Internal Medicine 10/06/23 Jacob Sharp [address] [place] [address] Referring 04/30/[address] [place] [phone] Registered Dietitian Nutrition 06/24/[address] [place] [address] Registered Dietitian Nutrition 08/27/23 Yuan Miller MD, PhD [facility]4 [place] [address] Surgeon General Surgery 02/03/24 documented as of this encounter
--- OUTSIDE RECORDS SUMMARY | 2025-04-09 12:01 | XMS_ITS | Encounter Summary ---
Author Organization [facility] Address [facility] [place] [address] Care Team Providers Care Engineering Secretary Name Role Phone Jacob Sharp Unavailable Rasheeda Newton RD Unavailable [phone] Unavailable [phone] Fritz HENDERSON MD, Shlomo B Primary Care Provider [phone] Yuan Miller MD, PhD Unavailable [phone] Source Comments In the event this information is protected by the Federal Confidentiality of Alcohol and Drug AbusePatient Records regulations: The Federal rules restrict any use of the information to criminally investigate or prosecute any alcohol or drug abuse patient.[facility] Encounter Details Date Type Department Care Team (Late st Contact Info) Description 05/01/2024 [facility] Medical [facility] [address] [place] [id number] Kadeem Juan MD [address] [place] [address] Neuropathy Social History Tobacco Use Types [...] risk 4 03/05/2023 Data from: https://www.neighborhoodatlas.medicine.[facility].edu/. Last address used for calculation [...] PSYCHOLOGY CONSULT TO PHYSICAL THERAPY CONSULT TO STATUARY PAINTER CONSULT TO SPEECH THERAPY documented in this encounter Plan of Treatment Upcoming Encounters Date Type Department Care Team (Latest Contact Info) Description 04/10/2025 10:00 AM EDT Hospital Encounter Admitting 9500 [place] [address] Yuan Miller MD, PhD [address]00 [place] [address] Nausea and vomiting, unspecified vomiting type [R11.2], H/O bariatric surgery [Z98.84], Jejunostomy tube fell out [T85.528A] 04/10/2025 10:00 AM EDT - 04/10/2025 12:00 PM EDT Surgery Admitting [address]00 [place] [address] Yuan Miller MD, PhD [facility] [place] [address] LAPAROSCOPIC JEJUNOSTOMY 04/19/2025 11:00 AM EDT [facility] Neurological Mandaen [address] [place] [address] Joann Loera, DIGITAL CONTROLS TECHNICAL OFFICER.HYDRAULIC GOVERNOR ASSEMBLER [address]00 [place], [place] [phone] Cognitive movement issues 04/21/2025 8:30 AM EDT [facility] Nutrition Therapy [address] [address] Tiffany Banks, RD 9500 [place] [address] f/u TF forula tolerance and hydration 05/18/2025 9:00 AM EDT [facility] General Surgery [address] [place] [id number] Michael Mora PA-C 9500 [place] [address] f/u with michael mora in 2 wks 05/29/2025 9:00 AM EDT [facility] Gastroenterology [address] [address] Johanna Martinez MD [facility] [address] [place] [id number] 3 month follow up 06/28/2025 10:00 AM EDT [facility] Neurology Pain [address] [place] [phone] [place] [address] [place] [address] Follow up for pain Scheduled Procedures Name [...] as of this encounter Care Teams Engineering Secretary Relationship Specialty Start Date End Date Shlomo Hu II, MD [address] [facility] 110 [place] [address] PCP - General Internal Medicine 10/06/23 Jacob Sharp [address] [place] [address] Referring 04/30/[address] [place] [address] Registered Dietitian Nutrition 06/24/[address] [place] [address] Registered Dietitian Nutrition 08/27/23 Yuan Miller MD, PhD [address] [place] [address] Surgeon General Surgery 02/03/24 documented as of this encounter
--- OUTSIDE RECORDS SUMMARY | 2025-04-09 12:02 | XMS_ITS | Encounter Summary ---
Author Organization [facility] Address [address] [place] [address] Care Team Providers Care Commutator Inspector Name Role Phone Shlomo Hu MD Primary Care Provider Jacob Sharp ELECTRICIAN SUBSTATION Unavailable Thursday, Toya NURSING ADMINISTRATOR Unavailable [phone] Shlomo Hu MD Unavailable [phone] Shante Kumar STRIP CATCHER-TRAVEL AGENT Unavailable Claribel Scott RN Unavailable Jess Marsh NURSING ADMINISTRATOR Unavailable Esthela Tesfaye TABLE WORKER PACKAGER Unavailable Encounter Details Date Type Department Care Team (Late st Contact Info) Description 02/17/2023 Abstract [facility] [address] [facility] 300 [place] [address] Shante Kumar, STRIP CATCHER-TRAVEL AGENT 112 [facility] 160 [place] [address] Social History Tobacco Use Types Packs/Day Years [...] Upcoming Encounters Date Type Department Care Team ([facility] st Contact Info) Description 04/20/2025 3:00 PM EDT Office Visit [facility] [address] [facility] 120 [place] [address] Sonny Rodriguez DPLudmila 3006 [facility] 5 [place] [address] 05/04/2025 2:50 PM EDT Office Visit [facility] [address] [facility] 120 [place] [address] Sonny Rodriguez DPM [address] [address] documented as of this encounter Visit Diagnoses Not on filedocumented in this encounter Care Teams Commutator Inspector Relationship Specialty Start Date End Date Shlomo Hu MD [address] [facility] 110 [place] [address] PCP - General Internal Medicine 02/15/23 [place] [address] [place] [address] PCP - [place] Commercial 08/14/23 Shlomo Hu MD [address] [facility] 110 [place] [address] PCP - [place] Commercial 05/15/2407/14 Shante Kumar APRN-TRAVEL AGENT [address] [facility] [address] [place] [address] PCP - [place] [employer] 07/15/24 5 ThursdayToya LPN [address] [place] [address] Licensed Practical Nurse Family Medicine 01/19/24 10/21/24 Claribel Scott, RN [address] [place] [address] Licensed Practical Nurse Family Medicine 10/21/24 12/06/24 Jess Marsh LPN [address] [place] [address] [place] [address] 12/06/24 Esthela Tesfaye, TABLE WORKER PACKAGER [address] [place] [address] Burn Center Nurse Family Medicine 02/03/25 documented as of this encounter
--- OUTSIDE RECORDS SUMMARY | 2025-04-09 12:02 | XMS_ITS | Encounter Summary ---
Author Organization [facility] tem Address [id number] [address] [place] [address] Care Team Providers Care Syrup Shed Supervisor Name Role Phone JerichoGamal leivagarth Dumont APRN-IT MANAGER Primary Care Provider + Encounter Details Date Type Department Care Team (Late st Contact Info) Description 05/09/2022 Telephone [facility] Imaging [address] [place] [phone] Felisha Seals, PIETRO Social History Tobacco Use [...] do you attend chur or islam services? Patient declined 05/08/2022 Do you belong [...] Answer Date Recorded Total Score 0 05/08/2022 [facility] of Occupat [...] documented as of this encounter Care Teams Syrup Shed Supervisor Relationship Specialty Start Date End Date Skylar Echavarria APRN-IT MANAGER [address] [place] [address] PCP - General Internal Medicine 11/18/23 documented as of this encounter
--- OUTSIDE RECORDS SUMMARY | 2025-04-09 12:02 | XMS_ITS | Encounter Summary ---
Author Organization [facility] Address [address] [place] [address] Care Team Providers Care Computerized Machine Fabric Cutter Name Role Phone Jacob Sharp Unavailable Rasheeda Newton RD Unavailable [phone] Unavailable [phone] Fritz HENDERSON MD, Shlomo B Primary Care Provider [phone] Yuan Miller MD, PhD Unavailable [phone] Source Comments In the event this information is protected by the Federal Confidentiality of Alcohol and Drug AbusePatient Records regulations: The Federal rules restrict any use of the information to criminally investigate or prosecute any alcohol or drug abuse patient.[facility] Encounter Details Date Type Department Care Team (Late st Contact Info) Description 03/28/2024 Get Medical Advice Rheumatology [address] [phone] [place] [address] [place] [address] Biopsy results Social History Tobacco [...] is lower risk 4 03/05/2023 Data from: https://www.neighborhoodatlas.medicine.[facility].edu/. Last address used for calculation [address] [...] 04/10/2025 10:00 AM EDT Hospital Encounter Admitting [address] [place] [address] Yuan [place] [address] [place] [address] Nausea and vomiting, unspecified vomiting type [R11.2], H/O bariatric surgery [Z98.84], Jejunostomy tube fell out [T85.528A] 04/10/2025 10:00 AM EDT - 04/10/2025 12:00 PM EDT Surgery Admitting 9500 [place] [address] Yuan Miller MD, PhD [address]00 [place] [address] LAPAROSCOPIC JEJUNOSTOMY 04/19/2025 11:00 AM EDT [facility] Neurological Jehovah'S Witness [address] [place] [phone] Joann Loera, JOSE.ECONOMETRICS PROFESSOR [address] [place] [phone] Cognitive movement issues 04/21/2025 8:30 AM EDT [facility] Nutrition Therapy [address] [place] [phone] Tiffany Banks, RD 9500 [place] [address] f/u TF forula tolerance and hydration 05/18/2025 9:00 AM T [facility] General Surgery [address] [place] 1723806 Michael Mora PA-C [address] [place] [phone] f/u with michael mora in 2 wks 05/29/2025 9:00 AM T [facility] Gastroenterology [address] [place] [phone] Johanna Martinez MD [facility] [address] [place] [phone] 3 month follow up 06/28/2025 10:00 AM T [facility] Neurology Pain [address] [place] [phone] [place] [address] [place] [phone] Follow up for pain Scheduled Procedures Name [...] documented as of this encounter Care Teams Computerized Machine Fabric Cutter Relationship Specialty Start Date End Date Shlomo Hu II, MD 112 [facility] 110 [place] [address] PCP - General Internal Medicine 10/06/23 Jacob Sharp [address] [place] [phone] Referring 04/30/[address] [place] [phone] Registered Dietitian Nutrition 06/24/[address] [place], [place] [address] Registered Dietitian Nutrition 08/27/23 Yuan Miller MD, PhD [address] [place], [place] [address] Surgeon General Surgery 02/03/24 documented as of this encounter
--- OUTSIDE RECORDS SUMMARY | 2025-04-09 12:02 | XMS_ITS | Encounter Summary ---
Author [facility] Address [id number] [address] [place] [address] Care Team Providers Care Care Partner Name Role Phone Skylar Echavarria Julia GARCIA-LABORATORY INSPECTOR Primary Care Provider + Encounter Details Date Type Department Care Team (Late st Contact Info) Description 04/11/2022 Documentation [facility] Dispatcher Sign In [address] [place] [phone] Yg Benítez, DO [address] [place] [address] Social History Tobacco Use Types Packs/Day Years [...] on filedocumented in this encounter Care Teams Care Partner Relationship Specialty Start Date End Date Skylar Echavarria APRN-LABORATORY INSPECTOR [address] [place] [address] PCP - General Internal Medicine 11/18/23 documented as of this encounter
--- OUTSIDE RECORDS SUMMARY | 2025-04-09 12:02 | XMS_ITS | Encounter Summary ---
Author Organization [facility] Address [address] [place] [address] Care Team Providers Care Lead Rider Name Role Phone Jacob Sharp Unavailable Rasheeda Newton RD Unavailable [phone] Unavailable [phone] Fritz HENDERSON MD, Shlomo Momin Primary Care Provider [phone] Yuan Miller MD, PhD Unavailable [phone] Source Comments In the event this information is protected by the Federal Confidentiality of Alcohol and Drug AbusePatient Records regulations: The Federal rules restrict any use of the information to criminally investigate or prosecute any alcohol or drug abuse patient.[facility] Encounter Details Date Type Department Care Team (Late st Contact Info) Description 03/21/2025 Patient Msg Gastroenterology [address] [place] [phone] Provider, [facility] prescription services for Cre[place] Social History Tobacco Use Types Packs/Day Years Used Date Smoking Tobacco: Never Smokeless Tobacco: Never Alcohol Use Standard Drinks/Week Comments Not Currently 0 (1 standard drink = 0.6 oz pur e alcohol) [facility] Utilities Answer Date Recorded In the past 12 months has th e electric, gas, oil, or water [employer] threatened to shut off services in your [...] lower risk 4 03/05/2023 Data from: https://www.neighborhoodatlas.medicine.[facility]/. Last address used for calculation [address] 03/05/2023 Comments No [...] 10:00 AM EDT Hospital Encounter Admitting 9500 [place] [address] Yuan Miller MD, PhD [address] [place] [phone] Nausea and vomiting, unspecified vomiting type [R11.2], H/O bariatric surgery [Z98.84], Jejunostomy tube fell out [T85.528A] 04/10/2025 10:00 AM EDT - 04/10/2025 12:00 PM EDT Surgery Admitting 9500 [place] [address] Yuan Miller MD, PhD [address] [place] [address] LAPAROSCOPIC JEJUNOSTOMY 04/19/2025 11:00 AM EDT [facility] Neurological Sikhism [address] [place] [address] Joann Loera APRN.BUSINESS AGENT 9500 [place] [address] Cognitive movement issues 04/21/2025 8:30 AM EDT [facility] Nutrition Therapy [address] [address] Tiffany Banks, RD 9500 [place] [address] f/u TF forula tolerance and hydration 05/18/2025 9:00 AM EDT [facility] General Surgery [address] [place] [address] Michael Mora PA-C [address]00 [place] [address] f/u with michael mora in 2 wks 05/29/2025 9:00 AM EDT [facility] Gastroenterology [address] [place] [phone] Johanna Martinez MD [facility] [address] [place] [address] 3 month follow up 06/28/2025 10:00 AM EDT [facility] Neurology Pain [address] [place] [address] [place] [address] [place] [address] Follow up for pain Scheduled Procedures Name Priority Associated Diagnoses Date/Ti me LAPAROSCOPIC JEJUNOSTOMY Nausea and vomiting, unspecified vomiting type H/O bariatric surgery Jejunostomy tube fell out 04/10/2025 10:00 AM EDT documented as of this encounter Visit Diagnoses Not on filedocumented in this encounter Care Teams Lead Rider Relationship Specialty Start Date End Date Shlomo Hu II, MD [address] [place] [address] PCP - General Internal Medicine 10/06/23 Jacob Sharp [address] [place] [phone] Referring 04/30/[address] [place], [place] [phone] Registered Dietitian Nutrition 06/24/[address] [place] [address] Registered Dietitian Nutrition 08/27/23 Yuan Miller MD, PhD [address] [place] [address] Surgeon General Surgery 02/03/24 documented as of this encounter
--- OUTSIDE RECORDS SUMMARY | 2025-04-09 12:02 | XMS_ITS | Encounter Summary ---
Author Organization [facility] Address [id number] [address] [place] [address] Care Team Providers Care Learning Center Instructor Name Role Phone Skylar Echavarria APRN-UNDERCOLLAR MAKER Primary Care Provider + Encounter Details Date Type Department Care Team (Late st Contact Info) Description 05/26/2022 Abstract [facility] Center - Medical Oncology [address] [place] [phone] Estelita Trammell Social History Tobacco Use Types [...] attend chur or presybeterian services? Patient declined 05/08/2022 Do you belong [...] Answer Date Recorded Total Score 0 05/08/2022 [facility] - [...] documented as of this encounter Care Teams Learning Center Instructor Relationship Specialty Start Date End Date Skylar Echavarria APRN-UNDERCOLLAR MAKER [address] [place] [address] PCP - General Internal Medicine 11/18/23 documented as of this encounter
--- OUTSIDE RECORDS SUMMARY | 2025-04-09 12:02 | XMS_ITS | Encounter Summary ---
Author Organization [facility] Address [address] [facility] [place] [address] Care Team Providers Care Vocational Childcare Teacher Name Role Phone Shlomo Hu MD Primary Care Provider Jacob Sharp WARDROBE STYLIST Unavailable Thursday, Toya HEALTH COUNSELOR Unavailable [phone] Shlomo uH MD Unavailable [phone] Shante Kumar FUR FINISHER SEAMSTRESS-SUBWAY TRAIN DRIVER Unavailable Claribel Scott RN Unavailable [phone] Jess Marsh HEALTH COUNSELOR Unavailable Esthela Tesfaye HEALTH AND SAFETY ADVISOR Unavailable [phone] Encounter Details Date Type Department Care Team (Late st Contact Info) Description 03/27/2023 Abstract [facility] [place] [facility] 112 [facility] 110 [place] [address] Shlomo Hu MD 112 [facility] 110 [place], [place] [phone] Social History Tobacco Use Types Packs/Day Years [...] 03/01/2023 How often do you attend [facility] or shinto services? Patient declined 03/01/2023 Do you belong [...] heating? Somewhat hard 03/01/2023 [facility] [place] of Occupat ional Health - Occupational Stress [...] CI PODIATRY [address] [place] [address] [place] [address] Sonny Rodriguez DPLudmila [address] [address] 05/04/2025 2:50 PM EDT Office Visit [facility] [address] [facility] 120 [place] [address] Sonny Rodriguez DPLudmila [address] [address] documented as of this encounter Visit Diagnoses Not on filedocumented in this encounter Care Teams Vocational Childcare Teacher Relationship Specialty Start Date End Date Shlomo Hu MD 112 [facility] 110 [place] [address] PCP - General Internal Medicine 02/15/23 [place] [address] [place] [phone] PCP - [place] Commercial 08/14/23 Shlomo Hu MD 112 [facility] 110 [place] [address] PCP - [place] Commercial 05/15/2407/14 Shante Kumar, FUR FINISHER SEAMSTRESS-SUBWAY TRAIN DRIVER 112 [facility] 160 [place] [address] PCP - [place] Commercial 07/15/24 ThursdayToya LPN [address] [facility] [address] [place] [address] Licensed Practical Nurse Family Medicine 01/19/24 10/21/24 Claribel Scott, PIETRO [address] [place], [place] [phone] Licensed Practical Nurse Family Medicine 10/21/24 12/06/24 Jess Marsh LPN 112 [facility] 110 [place] [address] 12/06/24 Esthela Tesfaye, KIRA [address] [place] [address] Burrito Maker Family Medicine 02/03/25 documented as of this encounter
--- OUTSIDE RECORDS SUMMARY | 2025-04-09 12:02 | XMS_ITS | Encounter Summary ---
Author Organization [facility] Address [address] [facility] [place] [address] Care Team Providers Care Singing Telegram Performer Name Role Phone Shlomo Hu MD Primary Care Provider [phone] Jacob Sharp CHAIRMAN AND CHIEF EXECUTIVE OFFICER Unavailable Thursday, Toya ANESTHESIOLOGIST/PHYSICIAN Unavailable [phone] Shlomo Hu MD Unavailable [phone] Shante Kumar LETTER STAMPING MACHINE OPERATOR-REALTY LOAN SPECIALIST Unavailable Claribel Scott RN Unavailable Jess Marsh ANESTHESIOLOGIST/PHYSICIAN Unavailable Esthela Tesfaye DERRICK BOAT OPERATOR Unavailable Encounter Details Date Type Department Care Team (Late st Contact Info) Description 05/12/2023 Abstract [facility] [place] [facility] 112 [facility] 110 [place] [address] Shlomo Hu MD 112 [facility] 110 [place], [place] [phone] Social History Tobacco Use Types Packs/Day Years [...] do you attend [facility] or synagogue services? Patient declined 03/01/2023 Do [...] medical care, and heating? Somewhat hard 03/01/2023 [facility] [place] of Occupat ional Health - Occupational Stress [...] [address] [place] [address] [place] [address] Sonny Rodriguez, DPM [address] [address] 05/04/2025 2:50 PM EDT Office Visit [facility] [address] [facility] 120 [place] [address] Sonny Rodriguez, DPM [address] [address] documented as of this encounter Visit Diagnoses Not on filedocumented in this encounter Care Teams Singing Telegram Performer Relationship Specialty Start Date End Date Shlomo Hu MD [address] [facility] 110 [place] [address] PCP - General Internal Medicine 02/15/23 [place] [address] [place] [phone] PCP - Secretary Commercial 08/14/23 Shlomo Hu MD [address] [place] [address] [place] [address] PCP - Secretary Commercial 05/15/2407/14 Shante Kumar APRN-REALTY LOAN SPECIALIST [address] [place] [address] [place] [address] PCP - Secretary Commercial 07/15/24 ThursdayToya LPN [address] [place] [address] Licensed Practical Nurse Family Medicine 01/19/24 10/21/24 Claribel Scott, RN [address] [place] [address] Licensed Practical Nurse Family Medicine 10/21/24 12/06/24 Jess Marsh LPN 112 [facility] [address] [place] [address] 12/06/24 Esthela Tesfaye, KIRA [address] [place] [address] Information Management Officer Family Medicine 02/03/25 documented as of this encounter
--- OUTSIDE RECORDS SUMMARY | 2025-04-09 12:02 | XMS_ITS | Encounter Summary ---
Author Organization [facility] Address [address] [place] [address] Care Team Providers Care Wellness Ambassador Name Role Phone Jacob Sharp Unavailable Rasheeda Newton RD Unavailable [phone] Unavailable [phone] Fritz HENDERSON MD, Shlomo Momin Primary Care Provider [phone] Yuan Miller MD, PhD Unavailable [phone] Source Comments In the event this information is protected by the Federal Confidentiality of Alcohol and Drug AbusePatient Records regulations: The Federal rules restrict any use of the information to criminally investigate or prosecute any alcohol or drug abuse patient.[facility] Encounter Details Date Type Department Care Team (Late st Contact Info) Description 03/09/2025 Patient Msg Gastroenterology [address] [id number] Provider, [facility] follow up on supplies Social History Tobacco Use Types Packs/Day Years Used Date Smoking Tobacco: Never Smokeless Tobacco: Never Alcohol Use Standard Drinks/Week Comments Not Currently 0 (1 standard drink = 0.6 oz pur e alcohol) [facility] Utilities Answer Date Recorded In the past 12 months has th e electric, gas, oil, or water [employer] threatened to shut off services in your [...] is lower risk 4 03/05/2023 Data from: https://www.neighborhoodatlas.medicine.[facility]/. Last address used for calculation [address] [address] 03/05/2023 Comments No Sex and [...] 10:00 AM EDT Hospital Encounter Admitting 9500 [place] [address] Yuan Miller MD, PhD [address] [id number] Nausea and vomiting, unspecified vomiting type [R11.2], H/O bariatric surgery [Z98.84], Jejunostomy tube fell out [T85.528A] 04/10/2025 10:00 AM EDT - 04/10/2025 12:00 PM EDT Surgery Admitting [address] [id number] Yuan Miller MD, PhD [address] [id number] LAPAROSCOPIC JEJUNOSTOMY 04/19/2025 11:00 AM EDT [facility] Neurological Buddhist [address] [place], [place] [phone] Joann Loera APRN.TIME CYCLE OPERATOR [address] [id number] Cognitive movement issues 04/21/2025 8:30 AM EDT [facility] Nutrition Therapy [address] [address] Tiffany Banks, RD 9500 [place] [address] f/u TF forula tolerance and hydration 05/18/2025 9:00 AM EDT [facility] General Surgery 9299 [place] [address] Michael Mora PA-C 9500 [place] [address] f/u with michael mora in 2 wks 05/29/2025 9:00 AM EDT [facility] Gastroenterology [address] [address] Johanna Martinez MD [facility] [address] [place] [address] 3 month follow up 06/28/2025 10:00 AM EDT [facility] Neurology Pain [address] [id number] Quique WilmaDO [address] [place], [place] [id number] Follow up for pain Scheduled Procedures Name Priority Associated Diagnoses Date/Ti me LAPAROSCOPIC JEJUNOSTOMY Nausea and vomiting, unspecified vomiting type H/O bariatric surgery Jejunostomy tube fell out 04/10/2025 10:00 AM EDT documented as of this encounter Visit Diagnoses Not on filedocumented in this encounter Care Teams Wellness Ambassador Relationship Specialty Start Date End Date Shlomo Hu II, MD [address] [place] [address] 110 [place] [address] PCP - General Internal Medicine 10/06/23 Jacob Sharp [address] [id number] Referring 04/30/[address] [id number] Registered Dietitian Nutrition 06/24/[address] [phone] Registered Dietitian Nutrition 08/27/23 Yuan Miller MD, PhD 9500 [place] [address] Surgeon General Surgery 02/03/24 documented as of this encounter
--- OUTSIDE RECORDS SUMMARY | 2025-04-09 12:02 | XMS_ITS | Encounter Summary ---
Author Organization [facility] Address [address] [place] [address] Care Team Providers Care Accounting Assistant Name Role Phone Joseph Sean Mona GALVEZ Primary Care Provider [phone] Jacob Sharp Unavailable Rasheeda Newton RD Unavailable [phone] Unavailable [phone] Fritz HENDERSON MD, Shlomo Momin Primary Care Provider [phone] Yuan Miller MD, PhD Unavailable [phone] Source Comments In the event this information is protected by the Federal Confidentiality of Alcohol and Drug AbusePatient Records regulations: The Federal rules restrict any use of the information to criminally investigate or prosecute any alcohol or drug abuse patient.[facility] Encounter Details Date Type Department Care Team (Late st Contact Info) Description 08/11/2022 Patient Msg Hematology/Oncology [address] [place] [address] Lacey Youssef, TANK PUMPER.ELECTROTYPE MOLDER [address] [place] [address] Follow Up Anemia Consult Social [...] N ot on file 08/20/2020 Data from: https://www.neighborhoodatlas.medicine.[facility] [...] file Travel History Travel Start Travel End [place] 03/18/2025 03/26/2025 COVID-19 Exposure Response Date Recorded [...] 10:00 AM EDT Hospital Encounter Admitting [address] [id number] Yuan Miller MD, PhD [address] [phone] Nausea and vomiting, unspecified vomiting type [R11.2], H/O bariatric surgery [Z98.84], Jejunostomy tube fell out [T85.528A] 04/10/2025 10:00 AM EDT - 04/10/2025 12:00 PM EDT Surgery Admitting [address] [phone] Yuan Miller MD, PhD [address] [phone] LAPAROSCOPIC JEJUNOSTOMY 04/19/2025 11:00 AM EDT [facility] Neurological Spiritism [address] [id number] Joann Loera, TANK PUMPER.ELECTROTYPE MOLDER [address] [phone] Cognitive movement issues 04/21/2025 8:30 AM EDT [facility] Nutrition Therapy [address] [address] Tiffany Banks, RD 9500 [place] [address] f/u TF forula tolerance and hydration 05/18/2025 9:00 AM EDT [facility] General Surgery [address] [place] [address] Michael Mora PA-C 9500 [place] [address] f/u with michael mora in 2 wks 05/29/2025 9:00 AM EDT [facility] Gastroenterology [address] [place] [address] [address] [facility] [address] [address] 3 month follow up 06/28/2025 10:00 AM EDT [facility] Neurology Pain [address] [place] [address] [place] [address] [place], [place] [phone] Follow up for pain Scheduled Procedures Name [...] documented as of this encounter Care Teams Accounting Assistant Relationship Specialty [place] [address] [place] [address] PCP - General Family Medicine 07/09/12 10/05/23 Shlomo Hu II, MD [address] [address] PCP - General Internal Medicine 10/06/23 Jacob Sharp [address] [place] [address] Referring 04/30/[address] [address] [phone] Registered Dietitian Nutrition 06/24/[address] 9500 [place] [address] Registered Dietitian Nutrition 08/27/23 Yuan Miller MD, PhD [address] [place], [place] [phone] Surgeon General Surgery 02/03/24 documented as of this encounter
--- OUTSIDE RECORDS SUMMARY | 2025-04-09 12:02 | XMS_ITS | Encounter Summary ---
Author Organization [facility] Address [address] [place] [address] Care Team Providers Care Director Of Student Aid Name Role Phone Shlomo Hu MD Primary Care Provider [phone] Jacob Sharp REEL FILM INSPECTOR Unavailable [phone] Thursday, Toya ORAL AND MAXILLOFACIAL SURGEON Unavailable [phone] Shlomo Hu MD Unavailable [phone] Shante Kumar CO PILOT-DISTILLERY WORKER Unavailable Claribel Scott RN Unavailable [phone] Jess Marsh ORAL AND MAXILLOFACIAL SURGEON Unavailable Esthela Tesfaye VP MARKETING SERVICES AND SKIN Unavailable [phone] Encounter Details Date Type Department Care [...] week 03/01/2023 How often do you attend [facility] or gnosticism services? Patient declined 03/01/2023 Do you belong [...] medical care, and heating? Somewhat hard 03/01/2023 [facility] - [...] Upcoming Encounters Date Type Department Care Team ([facility] st Contact Info) Description 04/20/2025 3:00 PM EDT Office Visit [facility] 112 [facility] 120 [place] [phone] Sonny Rodriguez DPM 9644 [facility] 5 [place] [address] 05/04/2025 2:50 PM EDT Office Visit [facility] [address] [facility] 120 [place] [address] Sonny Rodriguez DPM [address] [address] documented as of this encounter Procedures Procedure Name Priority Date/Time Associated Diagnosis Comments [facility] SURGICAL PATHOLOGY Routine 04/23/2023 7:47 AM EDT COLONOSCOPY 04/23/2023 7:15 AM EDT documented in this encounter Results * [facility] SURGICAL PATHOLOGY (04/23/2023 7:47 AM EDT) [facility] CASE REPORT [facility] Comment: Surgical Pathology Report Case: [id number] Authorizing Provider: Rene Corona MD Collected: 04/23/2023 [...] in one cassette. Gross examination performed at [facility], [address] [place] [address] JS 04/23/2023 12:13 PM [facility] CLINICAL HISTORY R/O microscopic colitis [facility] FINAL PERFORMING LAB [facility] Comment: Diagnostic interpretation performed at [facility], [address] [facility], [place] [address] CLIA# [id number] Soft Sugar Operator Head: Dona Saavedra M.D. 04/23/2023 7:47 AM EDT 04/24/2023 12:34 PM EDT Narrative CLINISY[facility] - 04/24/2023 1:19 PM EDT Specimen Type: TISSUE SPECIMEN Ordering Facility: [facility] Address: [address] [place] [phone] Original Ordering Provider: RENE CORONA us Generic External Data Provider MONIKA Lynch inalinda Result MONIKA [facility] [address] [place] [address] [facility] [address] 022840 [place] [address] * COLONOSCOPY (04/23/2023 7:15 AM EDT) Anatomical Region Laterality Modality Other 04/23/2023 7:15 AM EDT Narrative 04/23/2023 7:58 AM EDT [facility] Gastrointestinal Endoscopy Patient Name: Melina Taveras Procedure Date: 04/23/2023 7:15 AM Date of : 1975 Admit Type: Outpatient Age: 47 Room: [address] [address] [address] Gender: Female Note Status: Finalized Attending MD: [...] by the physician, the nurse and the corporate communications specialist in the pre-procedure area in the procedure [...] previously scheduled. Procedure Code(s): --- Professional --- 46657, Colonoscopy, flexible; with biopsy, single or multiple Diagnosis Code(s): --- Professional --- K52.9, Noninfective gastroenteritis and colitis, unspecified K57.30, Diverticulosis of large intestine without perforation or abscess without bleeding CPT copyright 2020 [employer]. All rights reserved. The codes documented in this report are preliminary and upon pushcart peddler review may be revised to meet current [...] loss was minimal. Procedure Note Radiology, Radiologist, - 04/23/2023 [facility] Gastrointestinal Endoscopy Patient Name: Melina Taveras Procedure Date: 04/23/2023 7:15 AM Date of : 1975 Admit Type: Outpatient Age: 47 Room: [address] [address] Gender: Female Note Status: Finalized Attending MD: [...] by the physician, the nurse and the corporate communications specialist in the pre-procedure area in the procedure [...] previously scheduled. Procedure Code(s): --- Professional --- 24607, Colonoscopy, flexible; with biopsy, single or multiple Diagnosis Code(s): --- Professional --- K52.9, Noninfective gastroenteritis and colitis, unspecified K57.30, Diverticulosis of large intestine without perforation or abscess without bleeding CPT copyright 2020 [employer]. All rights reserved. The codes documented in this report are preliminary and upon pushcart peddler review may be revised to meet current [...] on filedocumented in this encounter Care Teams Director Of Student Aid Relationship Specialty Start Date End Date Shlomo Hu MD [address] [facility] 110 [place] [address] PCP - General Internal Medicine 02/15/23 [place] [address] [place] [address] PCP - [employer] 08/14/23 Shlomo Hu MD [address] [facility] 110 [place] [address] PCP - [employer] 05/15/2407/14 Shante Kumar APRN-DISTILLERY WORKER [address] [facility] [address] [place] [address] PCP - [employer] 07/15/24 5 ThursdayToya LPN [address] [facility] [address] [place] [address] Licensed Practical Nurse Family Medicine 01/19/24 10/21/24 Claribel Scott, PIETRO [address] [place] [address] Licensed Practical Nurse Family Medicine 10/21/24 12/06/24 Jess Marsh LPN [address] [facility] 110 [place] [address] 12/06/24 Esthela Tesfaye LSW [address] [place] [address] Professor Of Latin American Studies Family Medicine 02/03/25 documented as of this encounter
--- OUTSIDE RECORDS SUMMARY | 2025-04-09 12:02 | XMS_ITS | Encounter Summary ---
Author Organization [facility] Address [address] [facility] [place] [address] Care Team Providers Care Sheetmetal Trades Worker Name Role Phone Shlomo Hu MD Primary Care Provider [phone] Jacob Sharp BURIAL AGENT Unavailable Thursday, Toya SUBSTATION ENGINEER Unavailable [phone] Shlomo Hu MD Unavailable [phone] Shante Kumar HISTORIOGRAPHY PROFESSOR-POLE MAKER Unavailable Claribel Scott RN Unavailable Jess Marsh SUBSTATION ENGINEER Unavailable Esthela Tesfaye ROAD TESTER Unavailable Encounter Details Date Type Department Care Team (Late st Contact Info) Description 05/06/2023 Orders Only [facility] [address] [facility] 110 [place] [address] A, Unknown Practice [address] [place] [address] Social History Tobacco Use Types [...] do you attend [facility] or [facility]olic services? Patient declined 03/01/2023 Do [...] and heating? Somewhat hard 03/01/2023 [facility] [...] [address] [place] [address] [place] [address] Sonny Rodriguez, DPLudmila [address] [address] 05/04/2025 2:50 PM EDT Office Visit [facility] [address] [facility] 120 [place] [address] Sonny Rodriguez DPM [address] [address] documented as of this encounter Procedures Procedure Name Priority Date/Time Associated Diagnosis Comments SCANNED LABS Routine 05/04/2023 11:01 AM EDT documented in this encounter Results * SCANNED LABS (05/04/2023 11:01 AM EDT) us Unknown Practice A LAB CHG PERFORMABLES Final Re sult documented in this encounter Visit Diagnoses Not on filedocumented in this encounter Care Teams Sheetmetal Trades Worker Relationship Specialty Start Date End Date Shlomo Hu MD [address] [facility] [facility] 110 [place] [address] PCP - General Internal Medicine 02/15/23 [place] [address] [place] [address] PCP - [employer] 08/14/23 Shlomo Hu MD [address] [facility] 110 [place] [address] PCP - [employer] 05/15/2407/14 Shante Kumar APRN-POLE MAKER [address] [facility] 160 [place] [address] PCP - [employer] 07/15/24, DUKE Pittman [address] [place] [address] Licensed Practical Nurse Family Medicine 01/19/24 10/21/24 Claribel Scott, RN [address] [place] [address] Licensed Practical Nurse Family Medicine 10/21/24 12/06/24 Jess Marsh LPN [address] [place] [address] [place] [address] 12/06/24 Esthela Tesfaye, KIRA [address] [place] [address] Inside Sales Trainer Family Medicine 02/03/25 documented as of this encounter
--- OUTSIDE RECORDS SUMMARY | 2025-04-09 12:02 | XMS_ITS | Encounter Summary ---
Author Organization [facility] Address [address] [place] [address] Care Team Providers Care Biomedical Engineering Technician Name Role Phone Ruiz Sean Mona GALVEZ Primary Care Provider [phone] Jacob Sharp Unavailable Rasheeda Newton RD Unavailable [phone] Unavailable [phone] Fritz HENDERSON MD, Shlomo Momin Primary Care Provider [phone] Yuan Miller MD, PhD Unavailable [phone] Source Comments In the event this information is protected by the Federal Confidentiality of Alcohol and Drug AbusePatient Records regulations: The Federal rules restrict any use of the information to criminally investigate or prosecute any alcohol or drug abuse patient.[facility] Encounter Details Date Type Department Care Team (Late st Contact Info) Description 08/12/2022 Patient Msg Hematology/Oncology [address] [place] [address] [facility] Social History Tobacco Use Types [...] N ot on file 08/20/2020 Data from: https://www.neighborhoodatlas.medicine.[facility].edu/. Last address used for calculation Not [...] Start Travel End [place] 03/18/2025 03/26/2025 COVID-19 Exposure Response Date Recorded [...] 6:22 PM EST Lorenza Hair RN * Do you have serious difficulty walking or climbing stairs? Answer Date of Assessment Author No 08/04/2022 6:22 PM EST Lorenza Hair RN * Do you have difficulty dressing [...] 10:00 AM EDT Hospital Encounter Admitting [address] [id number] Yuan Miller MD, PhD [address] [id number] Nausea and vomiting, unspecified vomiting type [R11.2], H/O bariatric surgery [Z98.84], Jejunostomy tube fell out [T85.528A] 04/10/2025 10:00 AM EDT - 04/10/2025 12:00 PM EDT Surgery Admitting [address] [phone] Yuan Miller MD, PhD [address] [id number] LAPAROSCOPIC JEJUNOSTOMY 04/19/2025 11:00 AM EDT [facility] Neurological Latter Day [address] [phone] Joann Loera APRN.MOLASSES FEED MIXER [address] [place] [address] [phone] Cognitive movement issues 04/21/2025 8:30 AM EDT [facility] Nutrition Therapy [address] [address] Tiffany Banks, DIONNE [address] [place] [address] [phone] f/u TF forula tolerance and hydration 05/18/2025 9:00 AM EDT [facility] General Surgery [address] [phone] Michael Mora PA-C 9500 [place] [address] f/u with michael darshan in 2 wks 05/29/2025 9:00 AM EDT [facility] Gastroenterology [address] [place] [address] Johanna Martinez MD [facility] [address] [address] 3 month follow up 06/28/2025 10:00 AM EDT [facility] Neurology Pain [address] [place] [address] [place] [address] [place] [address] Follow up for pain Scheduled Procedures Name [...] documented as of this encounter Care Teams Biomedical Engineering Technician Relationship Specialty [place] [address] [place] [address] PCP - General Family Medicine 07/09/12 10/05/23 Shlomo Hu II, MD [address] [place] [address] [place] [address] PCP - General Internal Medicine 10/06/23 Jacob Sharp [address] [place] [address] Referring 04/30/[address] [address] Registered Dietitian Nutrition 06/24/[address] [address] [phone] Registered Dietitian Nutrition 08/27/23 Yuan Miller MD, PhD [address]00 [place], [place] [phone] Surgeon General Surgery 02/03/24 documented as of this encounter
--- OUTSIDE RECORDS SUMMARY | 2025-04-09 12:02 | XMS_ITS | Encounter Summary ---
Author Organization [facility] Address [address] [place] [address] Care Team Providers Care Shelter Advocate Name Role Phone Jacob Sharp Unavailable Rasheeda Newton RD Unavailable [phone] Unavailable [phone] Fritz HENDERSON MD, Shlomo Momin Primary Care Provider [phone] Yuan Miller MD, PhD Unavailable [phone] Source Comments In the event this information is protected by the Federal Confidentiality of Alcohol and Drug AbusePatient Records regulations: The Federal rules restrict any use of the information to criminally investigate or prosecute any alcohol or drug abuse patient.[facility] Encounter Details Date Type Department Care Team (Late st Contact Info) Description 03/09/2025 Patient Msg Gastroenterology [address] [phone] Provider, [facility] new update on formula Social History Tobacco Use Types Packs/Day Years Used Date Smoking Tobacco: Never Smokeless Tobacco: Never Alcohol Use Standard Drinks/Week Comments Not Currently 0 (1 standard drink = 0.6 oz pur e alcohol) [facility] Utilities Answer Date Recorded In the past 12 months has th e electric, gas, oil, or water [employer] threatened to shut off services in your [...] lower risk 4 03/05/2023 Data from: https://www.neighborhoodatlas.medicine.[facility]/. Last address used for calculation [address] [address] 03/05/2023 Comments No [...] 10:00 AM EDT Hospital Encounter Admitting 9500 [place] [address] Yuan Miller MD, PhD [address] [phone] Nausea and vomiting, unspecified vomiting type [R11.2], H/O bariatric surgery [Z98.84], Jejunostomy tube fell out [T85.528A] 04/10/2025 10:00 AM EDT - 04/10/2025 12:00 PM EDT Surgery Admitting [address] [id number] Yuan Miller MD, PhD [address] [phone] LAPAROSCOPIC JEJUNOSTOMY 04/19/2025 11:00 AM EDT [facility] Neurological Latter Day [address] [place], [place] [phone] Joann Loera APRN.SUSTAINABLE LANDSCAPE ARCHITECT [address] [phone] Cognitive movement issues 04/21/2025 8:30 AM EDT [facility] Nutrition Therapy [address] [address] Tiffany Banks, RD 9500 [place] [address] f/u TF forula tolerance and hydration 05/18/2025 9:00 AM EDT [facility] General Surgery 9299 [place] [address] Michael Mora PA-C 9500 [place] [address] f/u with michael mora in 2 wks 05/29/2025 9:00 AM EDT [facility] Gastroenterology [address] [address] Johanna Martinez MD [facility] [address] [place] [address] 3 month follow up 06/28/2025 10:00 AM EDT [facility] Neurology Pain [address] [place] [address] [phone] Quique WilmaDO [address] [place], [place] [phone] Follow up for pain Scheduled Procedures Name Priority Associated Diagnoses Date/Ti me LAPAROSCOPIC JEJUNOSTOMY Nausea and vomiting, unspecified vomiting type H/O bariatric surgery Jejunostomy tube fell out 04/10/2025 10:00 AM EDT documented as of this encounter Visit Diagnoses Not on filedocumented in this encounter Care Teams Shelter Advocate Relationship Specialty Start Date End Date Shlomo Hu II, MD [address] [place] [address] 110 [place] [address] PCP - General Internal Medicine 10/06/23 Jacob Sharp [address] [phone] Referring 04/30/[address] [place] [phone] Registered Dietitian Nutrition 06/24/[address] [place] [address] [phone] Registered Dietitian Nutrition 08/27/23 Yuan Miller MD, PhD 9500 [place] [address] Surgeon General Surgery 02/03/24 documented as of this encounter
--- OUTSIDE RECORDS SUMMARY | 2025-04-09 12:02 | XMS_ITS | Encounter Summary ---
Author Organization [facility] Address [address] [place] [address] Care Team Providers Care Rate Examiner Name Role Phone Jacob Sharp Unavailable Rasheeda Newton RD Unavailable [phone] Unavailable [phone] Fritz HENDERSON MD, Shlomo Momin Primary Care Provider [phone] Yuan Miller MD, PhD Unavailable [phone] Source Comments In the event this information is protected by the Federal Confidentiality of Alcohol and Drug AbusePatient Records regulations: The Federal rules restrict any use of the information to criminally investigate or prosecute any alcohol or drug abuse patient.[facility] Encounter Details Date Type Department Care Team (Late st Contact Info) Description 02/16/2025 Get Medical Advice PAIN [place] [address] [address] [facility] [address] [place] [address] Johann Echeverria MD [address] [place] [address] [address] [place], [place] [id number] Neuropathy pain Social History Tobacco Use Types Packs/Day Years Used Date Smoking Tobacco: Never Smokeless Tobacco: Never Alcohol Use Standard Drinks/Week Comments Not Currently 0 (1 standard drink = 0.6 oz pur e alcohol) [facility] Utilities Answer Date Recorded In the past [...] is lower risk 4 03/05/2023 Data from: https://www.neighborhoodatlas.[facility]/. Last address used for [...] 10:00 AM EDT Hospital Encounter Admitting 9500 [place] [address] Yuan Miller MD, PhD [address] [place] [id number] Nausea and vomiting, unspecified vomiting type [R11.2], H/O bariatric surgery [Z98.84], Jejunostomy tube fell out [T85.528A] 04/10/2025 10:00 AM EDT - 04/10/2025 12:00 PM EDT Surgery Admitting [address] [place] [id number] Yuan Miller MD, PhD [address] [id number] LAPAROSCOPIC JEJUNOSTOMY 04/19/2025 11:00 AM EDT [facility] Neurological Druze [address] [place] [phone] Joann Loera APRN.NEUROLOGICAL PHYSIOTHERAPIST [address] [place] [address] [phone] Cognitive movement issues 04/21/2025 8:30 AM EDT [facility] Nutrition Therapy [address] [address] Tiffany Banks, RD [address] [place] [phone] f/u TF forula tolerance and hydration 05/18/2025 9:00 AM EDT [facility] General Surgery 9300 [place] [address] Michael Mora PA-C 9500 [place] [address] f/u with michael mora in 2 wks 05/29/2025 9:00 AM EDT [facility] Gastroenterology [address] [address] Johanan Martinez MD [facility] [address] [place] [id number] 3 month follow up 06/28/2025 10:00 AM EDT [facility] Neurology Pain 20448 [place] [address] [place] [address] [place], [place] [phone] Follow up for pain Scheduled Procedures Name Priority Associated Diagnoses Date/Ti me LAPAROSCOPIC JEJUNOSTOMY Nausea and vomiting, unspecified vomiting type H/O bariatric surgery Jejunostomy tube fell out 04/10/2025 10:00 AM EDT documented as of this encounter Visit Diagnoses Not on filedocumented in this encounter Care Teams Rate Examiner Relationship Specialty Start Date End Date Shlomo Hu II, MD [address] [place] [address] 110 [place] [address] PCP - General Internal Medicine 10/06/23 Jacob Sharp [address] [place] [phone] Referring 04/30/[address] [place], [place] [phone] Registered Dietitian Nutrition 06/24/[address] [facility] [place] [phone] Registered Dietitian Nutrition 08/27/23 Yuan Miller MD, PhD [address] [phone] Surgeon General Surgery 02/03/24 documented as of this encounter
--- OUTSIDE RECORDS SUMMARY | 2025-04-09 12:02 | XMS_ITS | Encounter Summary ---
Author Organization [facility] Address [facility] [place] [address] Care Team Providers Care Biosecurity Officer Name Role Phone Jacob Sharp Unavailable Rasheeda Newton RD Unavailable [phone] Unavailable [phone] Fritz HENDERSON MD, Shlomo B Primary Care Provider [phone] Yuan Miller MD, PhD Unavailable [phone] Source Comments In the event this information is protected by the Federal Confidentiality of Alcohol and Drug AbusePatient Records regulations: The Federal rules restrict any use of the information to criminally investigate or prosecute any alcohol or drug abuse patient.[facility] Reason for Visit * Reason Comments [facility] Orders need to be faxed Encounter Details Date Type Department Care Team (Late st Contact Info) Description 03/02/2025 Telephone Hematology/Oncology [address] [place], [place] [phone] Jeanna Reed APRN.POPULATION HEALTH MANAGER [address] [place] [address] [facility] Other (Orders need to be faxed) Social History Tobacco Use Types Packs/Day Years Used Date Smoking Tobacco: Never Smokeless Tobacco: Never Alcohol Use Standard Drinks/Week Comments Not Currently 0 (1 standard drink = 0.6 oz pur e alcohol) [facility] Utilities Answer Date Recorded In [...] 4 03/05/2023 Data from: https://www.neighborhoodatlas.medicine.[facility].edu/. Last address used for calculation [address] [...] is calling Jeanna Reed APRN.CNP today regarding [facility] (Orders need to be faxed) PCP fax# [phone] for imaging center. Need orders faxed over do she can get imaging completed. Said she spoke to someone last week and nothing was faxed. Patient has been identified by name and birthdate. Duration of symptoms: N/A Requesting response back: call on cell [phone] (home) [phone] (work) [phone] (cell) Oralia Wan March 02, 2025 documented in this encounter Plan of Treatment Upcoming Encounters Date Type Department Care Team (Latest Contact Info) Description 04/10/2025 10:00 AM EDT Hospital Encounter Admitting [address] [place] [address] Yuan Miller MD, PhD [address] [place] [address] Nausea and vomiting, unspecified vomiting type [R11.2], H/O bariatric surgery [Z98.84], Jejunostomy tube fell out [T85.528A] 04/10/2025 10:00 AM EDT - 04/10/2025 12:00 PM EDT Surgery Admitting [address]00 [place] [address] Yuan Miller MD, PhD [address] [place] [address] LAPAROSCOPIC JEJUNOSTOMY 04/19/2025 11:00 AM EDT [facility] Neurological [place] [address]300 [place] [address] Joann Loera APRN.POPULATION HEALTH MANAGER [address] [place] [address] [phone] Cognitive movement issues 04/21/2025 8:30 AM EDT [facility] Nutrition Therapy [address] [address] Tiffany Banks, RD [address] [place] [phone] f/u TF forula tolerance and hydration 05/18/2025 9:00 AM EDT [facility] General Surgery [address] [place] [phone] Michael Mora PA-C [address] [place] [phone] f/u with michael mora in 2 wks 05/29/2025 9:00 AM EDT [facility] Gastroenterology [address] [place] [phone] Johanna Martinez MD [facility] [address] [place] [id number] 3 month follow up 06/28/2025 10:00 AM EDT [facility] Neurology Pain [address] [place] [phone] [place] [address] [place] [id number] Follow up for pain Scheduled Procedures Name Priority Associated Diagnoses Date/Ti me LAPAROSCOPIC JEJUNOSTOMY Nausea and vomiting, unspecified vomiting type H/O bariatric surgery Jejunostomy tube fell out 04/10/2025 10:00 AM EDT documented as of this encounter Visit Diagnoses Not on filedocumented in this encounter Care Teams Biosecurity Officer Relationship Specialty Start Date End Date Shlomo Hu II, MD [address] [facility] [address] [place] [address] PCP - General Internal Medicine 10/06/23 Jacob Sharp [address] [place] [phone] Referring 04/30/[address] [place] [address] Registered Dietitian Nutrition 06/24/[address] [place] [address] Registered Dietitian Nutrition 08/27/23 Yuan Miller MD, PhD [facility]0 [place] [address] Surgeon General Surgery 02/03/24 documented as of this encounter
--- OUTSIDE RECORDS SUMMARY | 2025-04-09 12:02 | XMS_ITS | Encounter Summary ---
Author Organization [facility] Address [address] [facility] [place] [address] Care Team Providers Care Software Development Test Engineer Name Role Phone Shlomo Hu MD Primary Care Provider [phone] Jess Marsh LPN Unavailable Esthela Tesfaye CARBONATOR Unavailable [phone] Encounter Details Date Type Department Care Team (Late st Contact Info) Description 03/15/2025 Abstract [facility] Medince [address] [facility] [address] [place] [address] Shlomo Hu MD [address] [facility] 110 [place] [address] Social History Tobacco Use Types Packs/Day Years [...] do you attend chur or gnosticist services? 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 Not on [...] WAY [facility] [address] [place] [phone] Sonny Rodriguez DPM [address] [address] 05/04/2025 2:50 PM EDT Office Visit [facility] [address] [facility] [address] [place] [address] Sonny Rodriguez DPM [address] [address] documented as of this encounter Visit Diagnoses Not on filedocumented in this encounter Additional Health Concerns Assessment Noted Time PHQ-9 Depression Total Score: 18 024 9:42 AM EDT documented as of this encounter Care Teams Software Development Test Engineer Relationship Specialty Start Date End Date Shlomo Hu MD [address] [place] [address] [place] [address] PCP - General Internal Medicine 02/15/23 Jess Marsh LPN [address] [place] [address] [place] [address] 12/06/24 Esthela Tesfaye, KIRA [address] [place] [address] Cement Or Concrete Finishing Supervisor Family Medicine 02/03/25 documented as of this encounter
--- OUTSIDE RECORDS SUMMARY | 2025-04-09 12:02 | XMS_ITS | Encounter Summary ---
Author Organization [facility] Address [address] [place] [address] Care Team Providers Care Dictaphone Technician Name Role Phone Sean Ruiz Mona GALVEZ Primary Care Provider [phone] Jacob Sharp Unavailable Rasheeda Newton RD Unavailable [phone] Unavailable [phone] Fritz HENDERSON MD, Shlomo B Primary Care Provider [phone] Yuan Miller MD, PhD Unavailable [phone] Source Comments In the event this information is protected by the Federal Confidentiality of Alcohol and Drug AbusePatient Records regulations: The Federal rules restrict any use of the information to criminally investigate or prosecute any alcohol or drug abuse patient.[facility] Encounter Details Date Type Department Care Team (Late st Contact Info) Description 09/03/2022 Get Medical Advice Thoracic Surgery [address] [place], [place] [phone] [place] [address] [place] [address] vagotomy follow up Social History [...] N ot on file 08/20/2020 Data from: https://www.neighborhoodatlas.medicine.[facility].edu/. Last address used for calculation Not [...] Travel Start Travel End [place] 03/18/2025 03/26/2025 COVID-19 Exposure Response Date Recorded [...] Date Author No 08/15/2022 4:22 PM Mona [place] RN documented in this encounter Plan of Treatment Upcoming Encounters Date Type Department Care Team (Latest Contact Info) Description 04/10/2025 10:00 AM EDT Hospital Encounter Admitting [address] [place] [address] [phone] Yuan Miller MD, PhD [address] [place] [phone] Nausea and vomiting, unspecified vomiting type [R11.2], H/O bariatric surgery [Z98.84], Jejunostomy tube fell out [T85.528A] 04/10/2025 10:00 AM EDT - 04/10/2025 12:00 PM EDT Surgery Admitting [address] [place] [phone] Yuan Miller MD, PhD [address] [place] [phone] LAPAROSCOPIC JEJUNOSTOMY 04/19/2025 11:00 AM EDT [facility] Neurological Cheondoism [address] [place] [phone] Joann Loera APRN.DIRECTOR APPAREL [address] [place] [phone] Cognitive movement issues 04/21/2025 8:30 AM EDT [facility] Nutrition Therapy [address] [address] Tiffany Banks, RD 9500 [place] [address] f/u TF forula tolerance and hydration 05/18/2025 9:00 AM EDT [facility] General Surgery [address] [place] [phone] Michael Mora PA-C [address] [place] [phone] f/u with michael mora in 2 wks 05/29/2025 9:00 AM EDT [facility] Gastroenterology [address] [place] [address] Johanna Martinez MD [facility] [address] [address] 3 month follow up 06/28/2025 10:00 AM EDT [facility] Neurology Pain [address] [place] [phone] [place] [address] [place] [address] Follow up for pain Scheduled Procedures Name [...] documented as of this encounter Care Teams Dictaphone Technician Relationship Specialty [place] [address] [place] [address] PCP - General Family Medicine 07/09/12 10/05/23 Shlomo Hu II, MD [address] [place] [address] [place] [address] PCP - General Internal Medicine 10/06/23 Jacob Sharp [address] [place] [address] Referring 04/30/[address] [phone] Registered Dietitian Nutrition 06/24/[address] [place], [place] [phone] Registered Dietitian Nutrition 08/27/23 Yuan Miller MD, PhD 9500 [place], [place] [phone] Surgeon General Surgery 02/03/24 documented as of this encounter
--- OUTSIDE RECORDS SUMMARY | 2025-04-09 12:02 | XMS_ITS | Encounter Summary ---
Author Organization [facility] Address [address] [place] [address] Care Team Providers Care Rice Farmworker Name Role Phone Jacob Sharp Unavailable Rasheeda Newton RD Unavailable [phone] Unavailable [phone] Fritz HENDERSON MD, Shlomo B Primary Care Provider [phone] Yuan Miller MD, PhD Unavailable [phone] Source Comments In the event this information is protected by the Federal Confidentiality of Alcohol and Drug AbusePatient Records regulations: The Federal rules restrict any use of the information to criminally investigate or prosecute any alcohol or drug abuse patient.[facility] Reason for Visit * Reason Comments letter of medical necessity for EN Encounter Details Date Type Department Care Team (Late st Contact Info) Description 03/27/2025 Telephone Gastroenterology [address] [place] [phone] Johanna Martinez MD [facility] [address] [place] [phone] letter of medical necessity for EN Social History Tobacco Use Types Packs/Day Years Used Date Smoking Tobacco: Never Smokeless Tobacco: Never Alcohol Use Standard Drinks/Week Comments Not Currently 0 (1 standard drink = 0.6 oz pur e alcohol) [facility] Utilities Answer Date Recorded In the past [...] risk 4 03/05/2023 Data from: https://www.neighborhoodatlas.medicine.[facility]/. Last address used for calculation [address] [...] Telephone Encounter - Ninoska Aguilar RN - 03/27/2025 2:41 PM EDT Form faxed from [facility], for pt for medical necessity for EN and all supplies, form completed and signed by Dr. Martinez and faxed back to [facility] with last clinical notes to [phone]. Ninoska Aguilar, PIETRO documented in this encounter Plan of Treatment Upcoming Encounters Date Type Department Care Team (Latest Contact Info) Description 04/10/2025 10:00 AM EDT Hospital Encounter Admitting 9500 [place] [address] Yuan Miller MD, PhD [address] [place] [phone] Nausea and vomiting, unspecified vomiting type [R11.2], H/O bariatric surgery [Z98.84], Jejunostomy tube fell out [T85.528A] 04/10/2025 10:00 AM EDT - 04/10/2025 12:00 PM EDT Surgery Admitting 9500 [place] [address] Yuan Miller MD, PhD 9500 [place] [address] LAPAROSCOPIC JEJUNOSTOMY 04/19/2025 11:00 AM EDT [facility] Neurological Caodaism 9300 [place] [address] Joann Loera APRN.MARKETING TRAFFIC MANAGER 9500 [place] [address] Cognitive movement issues 04/21/2025 8:30 AM EDT [facility] Nutrition Therapy [address] [address] Tiffany Banks, RD 9500 [place] [address] f/u TF forula tolerance and hydration 05/18/2025 9:00 AM EDT [facility] General Surgery 9300 [place] [address] Michael Mora PA-C 9500 [place] [address] f/u with michael mora in 2 wks 05/29/2025 9:00 AM EDT [facility] Gastroenterology [address] [address] Johanna Martinez MD [facility] [address] [address] 3 month follow up 06/28/2025 10:00 AM EDT [facility] Neurology Pain [address] [place] [phone] [place] [address] [place] [phone] Follow up for pain Scheduled Procedures Name Priority Associated Diagnoses Date/Ti me LAPAROSCOPIC JEJUNOSTOMY Nausea and vomiting, unspecified vomiting type H/O bariatric surgery Jejunostomy tube fell out 04/10/2025 10:00 AM EDT documented as of this encounter Visit Diagnoses Not on filedocumented in this encounter Care Teams Rice Farmworker Relationship Specialty Start Date End Date Shlomo Hu II, MD [address] [facility] 110 [place] [address] PCP - General Internal Medicine 10/06/23 Jacob Sharp [address] [place] [address] Referring 04/30/[address] [address] Registered Dietitian Nutrition 06/24/[address]00 [place] [address] Registered Dietitian Nutrition 08/27/23 Yuan Miller MD, PhD 9500 [place] [address] Surgeon General Surgery 02/03/24 documented as of this encounter
--- OUTSIDE RECORDS SUMMARY | 2025-04-09 12:02 | XMS_ITS | Encounter Summary ---
Author Organization [facility] Address [address] [place] [address] Care Team Providers Care Video Tape Transferrer Name Role Phone Jacob Sharp Unavailable Rasheeda Newton RD Unavailable [phone] Unavailable Fritz HENDERSON MD, Shlomo Momin Primary Care Provider [phone] Yuan Miller MD, PhD Unavailable [phone] Source Comments In the event this information is protected by the Federal Confidentiality of Alcohol and Drug AbusePatient Records regulations: The Federal rules restrict any use of the information to criminally investigate or prosecute any alcohol or drug abuse patient.[facility] Encounter Details Date Type Department Care Team (Late st Contact Info) Description 03/29/2024 Patient Msg Gastroenterology [address] [place] [phone] Provider, [facility] follow up on xray Social [...] in a retirement (including now)? No 02/16/2024 Area Deprivation Index Answer Date Reagan rded National Score (1-100), lower number is lower ri sk 63 03/05/2023 State Score (1-10), lower number is lower risk 4 03/05/2023 Data from: https://www.neighborhoodatlas.medicine.[facility].edu/. Last address used for calculation [address] 03/05/2023 Comments No Sex [...] 04/10/2025 10:00 AM EDT Hospital Encounter Admitting [facility]0 [place] [address] Yuan Miller MD, PhD 9500 [place] [address] Nausea and vomiting, unspecified vomiting type [R11.2], H/O bariatric surgery [Z98.84], Jejunostomy tube fell out [T85.528A] 04/10/2025 10:00 AM EDT - 04/10/2025 12:00 PM EDT Surgery Admitting [facility]0 [place] [address] Yuan Miller MD, PhD [address] [place] [phone] LAPAROSCOPIC JEJUNOSTOMY 04/19/2025 11:00 AM EDT [facility] Neurological [place]avian 9300 [place] [address] Joann Loera APRN.COIN MACHINE SERVICER REPAIRER [address] [place] [phone] Cognitive movement issues 04/21/2025 8:30 AM EDT [facility] Nutrition Therapy [address] [place] [phone] Tiffany Banks, RD [address] [place] [phone] f/u TF forula tolerance and hydration 05/18/2025 9:00 AM EDT [facility] General Surgery 9300 [place] [address] Michael Mora PA-C 9500 [place] [address] f/u with michael mora in 2 wks 05/29/2025 9:00 AM EDT [facility] Gastroenterology [address] [place] [phone] Johanna Martinez MD [facility] [address] [place], [place] [phone] 3 month follow up 06/28/2025 10:00 AM EDT [facility] Neurology Pain [address] [place] [phone] [place] [address] [place] [phone] Follow up for pain Scheduled Procedures Name [...] documented as of this encounter Care Teams Video Tape Transferrer Relationship Specialty Start Date End Date Shlomo Hu II, MD [address] [facility] 110 [place] [address] PCP - General Internal Medicine 10/06/23 Jacob Sharp [address] [place] [address] Referring 04/30/[address] [place] [phone] Registered Dietitian Nutrition 06/24/[address] [place] [address] Registered Dietitian Nutrition 08/27/23 Yuan Miller MD, PhD 9500 [place] [address] Surgeon General Surgery 02/03/24 documented as of this encounter
--- OUTSIDE RECORDS SUMMARY | 2025-04-09 12:02 | XMS_ITS | Encounter Summary ---
Author Organization [facility] Address [address] [place] [address] Care Team Providers Care Bench Jeweler Name Role Phone Jacob Sharp Unavailable Rasheeda Newton RD Unavailable [phone] Unavailable [phone] Fritz HENDERSON MD, Shlomo Momin Primary Care Provider [phone] Yuan Miller MD, PhD Unavailable [phone] Source Comments In the event this information is protected by the Federal Confidentiality of Alcohol and Drug AbusePatient Records regulations: The Federal rules restrict any use of the information to criminally investigate or prosecute any alcohol or drug abuse patient.[facility] Encounter Details Date Type Department Care Team (Late st Contact Info) Description 03/22/2025 [place] [address] Provider, Ccf Sign up to manage your digestive symptoms in between visits, covered by insurance Social History Tobacco Use Types Packs/Day Years Used Date Smoking Tobacco: Never Smokeless Tobacco: Never Alcohol Use Standard Drinks/Week Comments Not Currently 0 (1 standard drink = 0.6 oz pur e alcohol) [facility] Utilities Answer Date Recorded In the past 12 months has [place], gas, oil, or water [employer] threatened to shut off services in your [...] is lower risk 4 03/05/2023 Data from: https://www.neighborhoodatlas.medicine.[facility]/. Last address used for calculation [address] [address] 03/05/2023 Comments No Sex [...] 10:00 AM EDT Hospital Encounter Admitting 9500 [place] [address] Yuan Miller MD, PhD 9500 [place] [address] Nausea and vomiting, unspecified vomiting type [R11.2], H/O bariatric surgery [Z98.84], Jejunostomy tube fell out [T85.528A] 04/10/2025 10:00 AM EDT - 04/10/2025 12:00 PM EDT Surgery Admitting 9500 [place] [address] Yuan Miller MD, PhD 9500 [place] [address] LAPAROSCOPIC JEJUNOSTOMY 04/19/2025 11:00 AM EDT [facility] Neurological Yazdanism [address] [place], [place] [phone] Joann Loera APRN.OVERLOCK SLEEVE SETTER [address] [place] [id number] Cognitive movement issues 04/21/2025 8:30 AM EDT [facility] Nutrition Therapy [address] [address] Tiffany Banks, RD 9500 [place] [address] f/u TF forula tolerance and hydration 05/18/2025 9:00 AM EDT [facility] General Surgery 9299 [place] [address] Michael Mora PA-C 9500 [place] [address] f/u with michael mora in 2 wks 05/29/2025 9:00 AM EDT [facility] Gastroenterology [address] [address] Johanna Martinez MD [facility] [address] [place], [place] [address] 3 month follow up 06/28/2025 10:00 AM EDT [facility] Neurology Pain [address] [place] [address] [place] [address] [place] [address] Follow up for pain Scheduled Procedures Name Priority Associated Diagnoses Date/Ti me LAPAROSCOPIC JEJUNOSTOMY Nausea and vomiting, unspecified vomiting type H/O bariatric surgery Jejunostomy tube fell out 04/10/2025 10:00 AM EDT documented as of this encounter Visit Diagnoses Not on filedocumented in this encounter Care Teams Bench Jeweler Relationship Specialty Start Date End Date Shlomo Hu II, MD 112 [facility] 110 [place] [address] PCP - General Internal Medicine 10/06/23 Jacob Sharp [address] [place] [id number] Referring 04/30/[address] [place] [phone] Registered Dietitian Nutrition 06/24/[address] 9500 [place] [address] Registered Dietitian Nutrition 08/27/23 Yuan Miller MD, PhD 9500 [place] [address] Surgeon General Surgery 02/03/24 documented as of this encounter
--- OUTSIDE RECORDS SUMMARY | 2025-04-09 12:03 | XMS_ITS | Encounter Summary ---
Author Organization [facility] Address [address] [place] [address] Care Team Providers Care Dental Patient Coordinator Name Role Phone aJcob Sharp Unavailable Rasheeda Newton RD Unavailable [phone] Unavailable [phone] Fritz HENDERSON MD, Shlomo B Primary Care Provider [phone] Yuan Miller MD, PhD Unavailable [phone] Source Comments In the event this information is protected by the Federal Confidentiality of Alcohol and Drug AbusePatient Records regulations: The Federal rules restrict any use of the information to criminally investigate or prosecute any alcohol or drug abuse patient.[facility] Encounter Details Date Type Department Care Team (Late st Contact Info) Description 03/10/2024 Get Medical Advice Rheumatology [address] [place] [phone] [place] [address] [place], [place] [phone] Pls Social History Tobacco Use Types Packs/Day [...] is lower risk 4 03/05/2023 Data from: https://www.neighborhoodatlas.medicine.[facility].edu/. Last address used for calculation [address] [...] 04/10/2025 10:00 AM EDT Hospital Encounter Admitting [address] [place] [address] [place] [address] [place] [address] Nausea and vomiting, unspecified vomiting type [R11.2], H/O bariatric surgery [Z98.84], Jejunostomy tube fell out [T85.528A] 04/10/2025 10:00 AM EDT - 04/10/2025 12:00 PM EDT Surgery Admitting 9500 [place] [address] Yuan Miller MD, PhD 9500 [place] [address] LAPAROSCOPIC JEJUNOSTOMY 04/19/2025 11:00 AM EDT [facility] Neurological Religion [address] [place] [phone] Joann Loera, JOSE.SNOW RANGER 9500 [place] [address] Cognitive movement issues 04/21/2025 8:30 AM EDT [facility] Nutrition Therapy [address] [address] Tiffany Banks, RD [address] [place] [phone] f/u TF forula tolerance and hydration 05/18/2025 9:00 AM T [facility] General Surgery [address] [place] [phone] Michael Mora PA-C 9500 [place] [address] f/u with michael mora in 2 wks 05/29/2025 9:00 AM T [facility] Gastroenterology [address] [place] [phone] Johanna Martinez MD [facility] [address] [place] 7361706 3 month follow up 06/28/2025 10:00 AM T [facility] Neurology Pain [address] [place] 7272006 [place] [address] [place] [address] Follow up for pain Scheduled Procedures Name [...] as of this encounter Care Teams Dental Patient Coordinator Relationship Specialty Start Date End Date Shlomo Hu II, MD 112 [facility] 110 [place] [address] PCP - General Internal Medicine 10/06/23 Jacob Sharp [address] [place] [phone] Referring 04/30/[address] [place] [phone] Registered Dietitian Nutrition 06/24/[address] [place] [address] Registered Dietitian Nutrition 08/27/23 Yuan Miller MD, PhD [address] [place] [address] Surgeon General Surgery 02/03/24 documented as of this encounter
--- OUTSIDE RECORDS SUMMARY | 2025-04-09 12:03 | XMS_ITS | Encounter Summary ---
Author Organization [facility] Address [address] [place] [address] Care Team Providers Care Elevator Constructor Hydraulic Name Role Phone Jacob Sharp Unavailable Rasheeda Newton RD Unavailable [phone] Unavailable [phone] Fritz HENDERSON MD, Shlomo Momin Primary Care Provider [phone] Yuan Miller MD, PhD Unavailable [phone] Source Comments In the event this [...] 03/15/2024 Get Medical Advice General Surgery 9300 [place] [address] Yuan Miller MD, PhD 0526 [place] [address] Pain meds Social History Tobacco [...] 04/10/2025 10:00 AM EDT Hospital Encounter Admitting [address] [place] [address] [place] [address] [place] [address] Nausea and vomiting, unspecified vomiting type [R11.2], H/O bariatric surgery [Z98.84], Jejunostomy tube fell out [T85.528A] 04/10/2025 10:00 AM EDT - 04/10/2025 12:00 PM EDT Surgery Admitting 9500 [place] [address] Yuan Miller MD, PhD [address]00 [place] [address] LAPAROSCOPIC JEJUNOSTOMY 04/19/2025 11:00 AM EDT [facility] Neurological Buddhist [address] [place] [phone] Joann Loera, JOSE.LIME SLAKER [address] [place] 1707195 Cognitive movement issues 04/21/2025 8:30 AM EDT [facility] Nutrition Therapy [address] [place] [phone] Tiffany Banks, RD 9500 [place] [address] f/u TF forula tolerance and hydration 05/18/2025 9:00 AM T [facility] General Surgery [address] [place] [phone] Michael Mora PA-C [address] [place] 9612395 f/u with michael mora in 2 wks 05/29/2025 9:00 AM T [facility] Gastroenterology [address] [place] [phone] Johanna Martinez MD [facility] [address] [place] 7164106 3 month follow up 06/28/2025 10:00 AM T [facility] Neurology Pain [address] [place] 9612306 [place] [address] [place] 1707195 Follow up for pain Scheduled Procedures Name [...] as of this encounter Care Teams Elevator Constructor Hydraulic Relationship Specialty Start Date End Date Shlomo Hu II, MD 112 [facility] 110 [place] [address] PCP - General Internal Medicine 10/06/23 Jacob Sharp [address] [place] [phone] Referring 04/30/[address] [place] [phone] Registered Dietitian Nutrition 06/24/[address] [place], [place] [phone] Registered Dietitian Nutrition 08/27/23 Yuan Miller MD, PhD [address] [place], [place] [address] Surgeon General Surgery 02/03/24 documented as of this encounter
--- OUTSIDE RECORDS SUMMARY | 2025-04-09 12:03 | XMS_ITS | Encounter Summary ---
Author Organization [facility] Address [address] [place] [address] Care Team Providers Care Pets Salesperson Name Role Phone Jacob Sharp Unavailable Rasheeda Newton RD Unavailable [phone] Unavailable [phone] Fritz HENDERSON MD, Shlomo B Primary Care Provider [phone] Yuan Miller MD, PhD Unavailable [phone] Source Comments In the event this [...] 04/12/2024 Get Medical Advice General Surgery 9300 [place] [address] Michael Mora PA-C 1384 [place] [address] In patient Social History Tobacco [...] risk 4 03/05/2023 Data from: https://www.neighborhoodatlas.medicine.[facility].edu/. Last address used for calculation [address] [...] 10:00 AM EDT Hospital Encounter Admitting [address] [place] [address] [place] [address] [place] [address] Nausea and vomiting, unspecified vomiting type [R11.2], H/O bariatric surgery [Z98.84], Jejunostomy tube fell out [T85.528A] 04/10/2025 10:00 AM EDT - 04/10/2025 12:00 PM EDT Surgery Admitting 9500 [place] [address] Yuan Miller MD, PhD [address]00 [place] [address] LAPAROSCOPIC JEJUNOSTOMY 04/19/2025 11:00 AM EDT [facility] Neurological Sikh [address] [place] 0209506 Joann Loera, HOME SERVICE ADVISOR.LOW ALTITUDE AIR DEFENSE OFFICER 9500 [place] [address] Cognitive movement issues 04/21/2025 8:30 AM EDT [facility] Nutrition Therapy [address] [place] [phone] Tiffany Banks, RD [address] [place] 0209595 f/u TF forula tolerance and hydration 05/18/2025 9:00 AM T [facility] General Surgery [address] [place] 0292506 Michael Mora PA-C [address] [place] 0209595 f/u with michael mora in 2 wks 05/29/2025 9:00 AM T [facility] Gastroenterology [address] [place] 1775206 Johanna Martinez MD [facility] [address] [place] [phone] 3 month follow up 06/28/2025 10:00 AM T [facility] Neurology Pain [address] [place] [address] [place] [address] [place] [address] Follow up for pain Scheduled Procedures Name [...] documented as of this encounter Care Teams Pets Salesperson Relationship Specialty Start Date End Date Shlomo Hu II, MD 112 [facility] 110 [place] [address] PCP - General Internal Medicine 10/06/23 Jacob Sharp [address] [place] [phone] Referring 04/30/[address] [place] [phone] Registered Dietitian Nutrition 06/24/[address] [place], [place] [phone] Registered Dietitian Nutrition 08/27/23 Yuan Miller MD, PhD [address] [place], [place] [address] Surgeon General Surgery 02/03/24 documented as of this encounter
--- OUTSIDE RECORDS SUMMARY | 2025-04-09 12:03 | XMS_ITS | Encounter Summary ---
Author Organization [facility] Address [address] [place] [address] Care Team Providers Care Full Stack Java Developer Name Role Phone Jacob Sharp Unavailable Rasheeda Newton RD Unavailable [phone] Unavailable [phone] Fritz HENDERSON MD, Shlomo Momin Primary Care Provider [phone] Yuan Miller MD, PhD Unavailable [phone] Source Comments In the event this [...] 03/07/2024 Get Medical Advice General Surgery 9300 [place] [address] Yuan Miller MD, PhD 4142 [place] [address] Follow up appt Social History [...] 04/10/2025 10:00 AM EDT Hospital Encounter Admitting [address] [place] [address] Yuan [place] [address] [place] [address] Nausea and vomiting, unspecified vomiting type [R11.2], H/O bariatric surgery [Z98.84], Jejunostomy tube fell out [T85.528A] 04/10/2025 10:00 AM EDT - 04/10/2025 12:00 PM EDT Surgery Admitting 9500 [place] [address] Yuan Miller MD, PhD [address]00 [place] [address] LAPAROSCOPIC JEJUNOSTOMY 04/19/2025 11:00 AM EDT [facility] Neurological Caodaism [address] [place] [phone] Joann Loera, SERIALS LIBRARIAN.STAGE SET DESIGNER 9500 [place] [address] Cognitive movement issues 04/21/2025 8:30 AM EDT [facility] Nutrition Therapy [address] [place] [phone] Tiffany Banks, RD [address] [place] 441[address] f/u TF forula tolerance and hydration 05/18/2025 9:00 AM T [facility] General Surgery [address] [place] [phone] Michael Mora PA-C [address] [place] [address] f/u with michael mora in 2 wks 05/29/2025 9:00 AM T [facility] Gastroenterology [address] [place] [phone] Johanna Martinez MD [facility] [address] [place] 2589006 3 month follow up 06/28/2025 10:00 AM T [facility] Neurology Pain [address] [place] [address] [place] [address] [place] [address] Follow up for pain Scheduled Procedures Name [...] documented as of this encounter Care Teams Full Stack Java Developer Relationship Specialty Start Date End Date Shlomo Hu II, MD 112 [facility] 110 [place] [address] PCP - General Internal Medicine 10/06/23 Jacob Sharp [address] [place] [phone] Referring 04/30/[address] [place] [phone] Registered Dietitian Nutrition 06/24/[address] [place], [place] [phone] Registered Dietitian Nutrition 08/27/23 Yuan Miller MD, PhD [address] [place], [place] [address] Surgeon General Surgery 02/03/24 documented as of this encounter
--- OUTSIDE RECORDS SUMMARY | 2025-04-09 12:03 | XMS_ITS | Encounter Summary ---
Author Organization [facility] Address [address] [place] [address] Care Team Providers Care Rabies Inspector Name Role Phone Jacob Sharp Unavailable Rasheeda Newton RD Unavailable [phone] Unavailable [phone] Fritz HENDERSON MD, Shlomo Momin Primary Care Provider [phone] uYan Miller MD, PhD Unavailable [phone] Source Comments In the event this information is protected by the Federal Confidentiality of Alcohol and Drug AbusePatient Records regulations: The Federal rules restrict any use of the information to criminally investigate or prosecute any alcohol or drug abuse patient.[facility] Encounter Details Date Type Department Care Team (Latest Contact Info) Description 03/10/2024 Patient Msg Radiology [address] [place] [phone] Provider, C[facility] [...] lower risk 4 03/05/2023 Data from: https://www.neighborhoodatlas.medicine.[facility].edu/. Last address used for calculation [address] [...] AM EDT Hospital Encounter Admitting 9500 [place] [address] Yuan Miller [place], PhD [address] [place] [address] Nausea and vomiting, unspecified vomiting type [R11.2], H/O bariatric surgery [Z98.84], Jejunostomy tube fell out [T85.528A] 04/10/2025 10:00 AM EDT - 04/10/2025 12:00 PM EDT Surgery Admitting [facility] [place] [address] Yuan Miller MD, PhD [address] [place] [phone] LAPAROSCOPIC JEJUNOSTOMY 04/19/2025 11:00 AM EDT [facility] Neurological Protestant [address] [place] [phone] Joann Loera APRN.SCIENTIFIC SYSTEMS ANALYST [address] [place] [phone] Cognitive movement issues 04/21/2025 8:30 AM EDT [facility] Nutrition Therapy [address] [place] [phone] Tiffany Banks, RD [address] [place] [phone] f/u TF forula tolerance and hydration 05/18/2025 9:00 AM EDT [facility] General Surgery 9300 [place] [address] Michael Mora PA-C 9500 [place] [address] f/u with michael mora in 2 wks 05/29/2025 9:00 AM EDT [facility] Gastroenterology [address] [place] [phone] Johanna Martinez MD [facility] [address] [place], [place] [address] 3 month follow up 06/28/2025 10:00 AM EDT [facility] Neurology Pain [address] [place] 7646406 [place] [address] [place] [phone] Follow up for pain Scheduled Procedures Name [...] documented as of this encounter Care Teams Rabies Inspector Relationship Specialty Start Date End Date Shlomo Hu II, MD 112 [facility] 110 [place] [address] PCP - General Internal Medicine 10/06/23 Jacob Sharp [address] [place] [address] Referring 04/30/[address] [phone] Registered Dietitian Nutrition 06/24/[address] [place], [place] [address] Registered Dietitian Nutrition 08/27/23 Yuan Miller MD, PhD 9500 [place] [address] Surgeon General Surgery 02/03/24 documented as of this encounter
--- OUTSIDE RECORDS SUMMARY | 2025-04-09 12:03 | XMS_ITS | Encounter Summary ---
Author Organization [facility] Address [address] [place] [address] Care Team Providers Care Oil Sprayer Name Role Phone Jacob Sharp Unavailable Rasheeda Newton RD Unavailable [phone] Unavailable [phone] Fritz HENDERSON MD, Shlomo B Primary Care Provider [phone] Yuan Miller MD, PhD Unavailable [phone] Source Comments In the event this information is protected by the Federal Confidentiality of Alcohol and Drug AbusePatient Records regulations: The Federal rules restrict any use of the information to criminally investigate or prosecute any alcohol or drug abuse patient.[facility] Encounter Details Date Type Department Care Team (Late st Contact Info) Description 04/02/2024 Get Medical Advice Rheumatology [address] [phone] [place] [address] [place] [address] Issues Social History Tobacco Use [...] risk 4 03/05/2023 Data from: https://www.neighborhoodatlas.medicine.[facility].edu/. Last address used for calculation [...] 04/10/2025 10:00 AM EDT Hospital Encounter Admitting [address] [place] [address] [place] [address] [place] [address] Nausea and vomiting, unspecified vomiting type [R11.2], H/O bariatric surgery [Z98.84], Jejunostomy tube fell out [T85.528A] 04/10/2025 10:00 AM EDT - 04/10/2025 12:00 PM EDT Surgery Admitting 9500 [place] [address] Yuan Miller MD, PhD 9500 [place] [address] LAPAROSCOPIC JEJUNOSTOMY 04/19/2025 11:00 AM EDT [facility] Neurological Islam [address] [place] [phone] Joann Loera, JOSE.ELECTRICAL LOGGING ENGINEER 9500 [place] [address] Cognitive movement issues 04/21/2025 8:30 AM EDT [facility] Nutrition Therapy [address] [address] Tiffany Banks, RD [address] [place] [phone] f/u TF forula tolerance and hydration 05/18/2025 9:00 AM T [facility] General Surgery [address] [place] 1956806 Michael Mora PA-C 9500 [place] [address] f/u with michael mora in 2 wks 05/29/2025 9:00 AM T [facility] Gastroenterology [address] [place] [phone] Johanna Martinez MD [facility] [address] [place] 0634106 3 month follow up 06/28/2025 10:00 AM T [facility] Neurology Pain [address] [place] [phone] [place] [address] [place] [address] Follow up for pain Scheduled Procedures Name [...] documented as of this encounter Care Teams Oil Sprayer Relationship Specialty Start Date End Date Shlomo Hu II, MD [address] [facility] 110 [place] [address] PCP - General Internal Medicine 10/06/23 Jacob Sharp [address] [place] [phone] Referring 04/30/[address] [place] [phone] Registered Dietitian Nutrition 06/24/[address] [place] [address] Registered Dietitian Nutrition 08/27/23 Yuan Miller MD, PhD [address] [place] [address] Surgeon General Surgery 02/03/24 documented as of this encounter
--- OUTSIDE RECORDS SUMMARY | 2025-04-09 12:03 | XMS_ITS | Encounter Summary ---
Author Organization [facility] Address [address] [place] [address] Care Team Providers Care Noise Abatement Engineer Name Role Phone Jacob Sharp Unavailable Rasheeda Newton RD Unavailable [phone] Unavailable [phone] Fritz HENDERSON MD, Shlomo B Primary Care Provider [phone] Yuan Miller MD, PhD Unavailable [phone] Source Comments In the event this information is protected by the Federal Confidentiality of Alcohol and Drug AbusePatient Records regulations: The Federal rules restrict any use of the information to criminally investigate or prosecute any alcohol or drug abuse patient.[facility] Encounter Details Date Type Department Care Team (Late st Contact Info) Description 03/09/2024 Get Medical Advice Rheumatology [address] [phone] [place] [address] [place], [place] [phone] Skin biopsy Social History Tobacco Use Types [...] is lower risk 4 03/05/2023 Data from: https://www.neighborhoodatlas.medicine.[facility].edu/. Last address used for calculation [...] 04/10/2025 10:00 AM EDT Hospital Encounter Admitting [address] [place] [address] [place] [address] [place] [address] Nausea and vomiting, unspecified vomiting type [R11.2], H/O bariatric surgery [Z98.84], Jejunostomy tube fell out [T85.528A] 04/10/2025 10:00 AM EDT - 04/10/2025 12:00 PM EDT Surgery Admitting 9500 [place] [address] Yuan Miller MD, PhD 9500 [place] [address] LAPAROSCOPIC JEJUNOSTOMY 04/19/2025 11:00 AM EDT [facility] Neurological Pentecostalism [address] [phone] Joann Loera, JOSE.SHOE WORKER [address] [phone] Cognitive movement issues 04/21/2025 8:30 AM EDT [facility] Nutrition Therapy [address] [phone] Tiffany Banks, RD 9500 [place] [address] f/u TF forula tolerance and hydration 05/18/2025 9:00 AM T [facility] General Surgery [address] [phone] Michael Mora PA-C [address] [phone] f/u with michael mora in 2 wks 05/29/2025 9:00 AM T [facility] Gastroenterology [address] [phone] Johanna Martinez MD [facility] [address] [id number] 3 month follow up 06/28/2025 10:00 AM T [facility] Neurology Pain [address] [phone] [place] [address] [address] [phone] Follow up for pain Scheduled Procedures Name [...] documented as of this encounter Care Teams Noise Abatement Engineer Relationship Specialty Start Date End Date Shlomo Hu II, MD 112 [facility] 110 [place] [address] PCP - General Internal Medicine 10/06/23 Jacob Sharp [address] [address] [phone] Referring 04/30/[address] [address] [phone] Registered Dietitian Nutrition 06/24/[address] [place], [place] [phone] Registered Dietitian Nutrition 08/27/23 Yuan Miller MD, PhD [address] [place], [place] 7935395 Surgeon General Surgery 02/03/24 documented as of this encounter
--- OUTSIDE RECORDS SUMMARY | 2025-04-09 12:03 | XMS_ITS | Encounter Summary ---
Author Organization [facility] Address [address] [place] [address] Care Team Providers Care Stretcher Drier Operator Name Role Phone Jacob Sharp Unavailable Rasheeda Netwon RD Unavailable [phone] Unavailable [phone] Fritz HENDERSON MD, Shlomo B Primary Care Provider [phone] Yuan Miller MD, PhD Unavailable [phone] Source Comments In the event this information is protected by the Federal Confidentiality of Alcohol and Drug AbusePatient Records regulations: The Federal rules restrict any use of the information to criminally investigate or prosecute any alcohol or drug abuse patient.[facility] Encounter Details Date Type Department Care Team (Late st Contact Info) Description 03/08/2024 Get Medical Advice Rheumatology [address] [phone] [place] [address] [place] [address] Follow up Social History Tobacco Use Types [...] lower risk 4 03/05/2023 Data from: https://www.neighborhoodatlas.medicine.[facility].edu/. Last address used for calculation [...] 6:31 AM EDT Order faxed over to [facility]. Confirmation received. Claribel Lewis RN * Telephone Encounter - Caroline Guerrero RN - 03/09/2024 2:46 PM EDT Spoke with patient, she is requesting skin biopsy for small fiber neuropathy and US Parathyroid/Salivary gland [place] completed closer to [place] in [place], she is requesting orders befaxed to [phone]. Caroline Geurrero RN * Telephone Encounter - Melina Estrada MD - 03/09/2024 2:21 PM EDT I placed an order under procedures. We may need to call the lab to assist with scheduling? [phone] * Telephone Encounter - Caroline Guerrero RN [...] 10:00 AM EDT Hospital Encounter Admitting 9500 [place] [address] Yuan Miller MD, PhD [address] [phone] Nausea and vomiting, unspecified vomiting type [R11.2], H/O bariatric surgery [Z98.84], Jejunostomy tube fell out [T85.528A] 04/10/2025 10:00 AM EDT - 04/10/2025 12:00 PM EDT Surgery Admitting [address] [phone] Yuan Miller MD, PhD [address] [phone] LAPAROSCOPIC JEJUNOSTOMY 04/19/2025 11:00 AM EDT [facility] Neurological Hindu [address] [phone] Joann Loera APRN.MUSEUM LIBRARIAN [address] [phone] Cognitive movement issues 04/21/2025 8:30 AM EDT [facility] Nutrition Therapy [address] [address] Tiffany Banks, RD 9500 [place] [address] f/u TF forula tolerance and hydration 05/18/2025 9:00 AM EDT [facility] General Surgery 9299 [place] [address] Michael Mora PA-C 9500 [place] [address] f/u with michael mora in 2 wks 05/29/2025 9:00 AM EDT [facility] Gastroenterology [address] [phone] Johanna Martinez MD [facility] [address] [place] [address] 3 month follow up 06/28/2025 10:00 AM EDT [facility] Neurology Pain 87[address] [place], [place] [phone] Quique WilmaDO [address] [place], [place] [phone] Follow up for pain Scheduled Procedures Name [...] documented as of this encounter Care Teams Stretcher Drier Operator Relationship Specialty Start Date End Date Shlomo Hu II, MD 112 [facility] 110 [place] [address] PCP - General Internal Medicine 10/06/23 Jacob Sharp [address] [place] [address] Referring 04/30/[address] [address] Registered Dietitian Nutrition 06/24/[address] 9500 [place] [address] Registered Dietitian Nutrition 08/27/23 Yuan Miller MD, PhD 9500 [place] [address] Surgeon General Surgery 02/03/24 documented as of this encounter
--- OUTSIDE RECORDS SUMMARY | 2025-04-09 12:03 | XMS_ITS | Encounter Summary ---
Author Organization [facility] Address [address] [place] [address] Care Team Providers Care Laborer Carpentry Dock Name Role Phone Jacob Sharp Unavailable Rasheeda Newton RD Unavailable [phone] Unavailable [phone] Fritz HENDERSON MD, Shlomo B Primary Care Provider [phone] Yuan Miller MD, PhD Unavailable [phone] Source Comments In the event this information is protected by the Federal Confidentiality of Alcohol and Drug AbusePatient Records regulations: The Federal rules restrict any use of the information to criminally investigate or prosecute any alcohol or drug abuse patient.[facility] Encounter Details Date Type Department Care Team (Late st Contact Info) Description 03/30/2024 Get Medical Advice Rheumatology [address] [phone] [place] [address] [place] [address] Additional iasues Social History Tobacco [...] is lower risk 4 03/05/2023 Data from: https://www.neighborhoodatlas.medicine.[facility].edu/. Last address used for calculation 1744 [...] 04/10/2025 10:00 AM EDT Hospital Encounter Admitting [address] [place] [address] [place] [address] [place] [address] Nausea and vomiting, unspecified vomiting type [R11.2], H/O bariatric surgery [Z98.84], Jejunostomy tube fell out [T85.528A] 04/10/2025 10:00 AM EDT - 04/10/2025 12:00 PM EDT Surgery Admitting 9500 [place] [address] Yuan Miller MD, PhD 9500 [place] [address] LAPAROSCOPIC JEJUNOSTOMY 04/19/2025 11:00 AM EDT [facility] Neurological Lutheran [address] [phone] Joann Loera, POLE PEELING MACHINE OPERATOR.HOUSING DEVELOPMENT SPECIALIST 9500 [place] [address] Cognitive movement issues 04/21/2025 8:30 AM EDT [facility] Nutrition Therapy [address] 9050006 Tiffany Banks, RD [address] [place] 2088995 f/u TF forula tolerance and hydration 05/18/2025 9:00 AM T [facility] General Surgery [address] 1678306 Michael Mora PA-C [address] 2088995 f/u with michael mora in 2 wks 05/29/2025 9:00 AM T [facility] Gastroenterology [address] [phone] Johanna Martinez MD [facility] [address] 0128106 3 month follow up 06/28/2025 10:00 AM T [facility] Neurology Pain [address] [place] [address] [place] [address] [place] [address] Follow up for pain Scheduled Procedures Name [...] as of this encounter Care Teams Laborer Carpentry Dock Relationship Specialty Start Date End Date Shlomo Hu II, MD 112 [facility] 110 [place] [address] PCP - General Internal Medicine 10/06/23 Jacob Sharp [address] [address] [phone] Referring 04/30/[address] [address] [phone] Registered Dietitian Nutrition 06/24/[address] [place], [place] 0508[address] Registered Dietitian Nutrition 08/27/23 Yuan Miller MD, PhD [address] [place], [place] 3004[address] Surgeon General Surgery 02/03/24 documented as of this encounter
--- OUTSIDE RECORDS SUMMARY | 2025-04-09 12:03 | XMS_ITS | Encounter Summary ---
Author Organization [facility] Address [address] [place] [address] Care Team Providers Care Sports Management Internship Name Role Phone Jacob Sharp Unavailable Rasheeda Newton RD Unavailable [phone] Unavailable [phone] Fritz HENDERSON MD, Shlomo B Primary Care Provider [phone] Yuan Miller MD, PhD Unavailable [phone] Source Comments In the event this information is protected by the Federal Confidentiality of Alcohol and Drug AbusePatient Records regulations: The Federal rules restrict any use of the information to criminally investigate or prosecute any alcohol or drug abuse patient.[facility] Reason for Visit * Reason Comments Radiology XR Encounter Details Date Type Department Care Team (Late st Contact Info) Description 04/07/2024 Radiology General Radiology [address] [place] [address] Pushpa Bush RT(R) Radiology XR Social History Tobacco Use [...] in a fdc (including now)? No 02/16/2024 Area Deprivation Index [...] 02/21/2024 2:13 PM EDT Chelle Carrington RN * Do you have difficulty dressing [...] PATIENT PRESENTS WITH AN IMPLANTABLE OR ATTACHED COPYRIGHT MANAGER: No RADIOLOGY DEPARTMENT: General X-ray: Exam(s) Completed: Abdomen X-Ray: Abdomen PERIPHERAL IV DATA: Not applicable SIGNED BY: RT Sandee(R) April 07, 2024 3:04 PM documented in this encounter Plan of Treatment Upcoming Encounters Date Type Department Care Team (Latest Contact Info) Description 04/10/2025 10:00 AM EDT Hospital Encounter Admitting 9500 [place] [address] Yuan Miller MD, PhD [address] [phone] Nausea and vomiting, unspecified vomiting type [R11.2], H/O bariatric surgery [Z98.84], Jejunostomy tube fell out [T85.528A] 04/10/2025 10:00 AM EDT - 04/10/2025 12:00 PM EDT Surgery Admitting [address] [phone] Yuan Miller MD, PhD [address] [phone] LAPAROSCOPIC JEJUNOSTOMY 04/19/2025 11:00 AM EDT [facility] Neurological Buddhist [address] [place], [place] [phone] Joann Loera APRN.EXTRACTIONS TECHNICIAN [address] [phone] Cognitive movement issues 04/21/2025 8:30 AM EDT [facility] Nutrition Therapy [address] [address] Tiffany Banks, RD [address] [phone] f/u TF forula tolerance and hydration 05/18/2025 9:00 AM EDT [facility] General Surgery [address] [phone] Michael Mora PA-C 9500 [place] [address] f/u with michael mora in 2 wks 05/29/2025 9:00 AM EDT [facility] Gastroenterology [address] [address] Johanna Martinez MD [facility] [address] [address] 3 month follow up 06/28/2025 10:00 AM EDT [facility] Neurology Pain [address] [place] [address] [place] [address] [place], [place] [phone] Follow up for pain Scheduled Procedures Name [...] as of this encounter Care Teams Sports Management Internship Relationship Specialty Start Date End Date Shlomo Hu II, MD [address] [facility] 110 [place] [address] PCP - General Internal Medicine 10/06/23 Jacob Sharp [address] [place] [address] Referring 04/30/[address] [phone] Registered Dietitian Nutrition 06/24/[address] [phone] Registered Dietitian Nutrition 08/27/23 Yuan Miller MD, PhD 9500 [place] [address] Surgeon General Surgery 02/03/24 documented as of this encounter
--- OUTSIDE RECORDS SUMMARY | 2025-04-09 12:03 | XMS_ITS | Encounter Summary ---
Author Organization [facility] Address [address] [place] [address] Care Team Providers Care Cloud Architect Name Role Phone Jacob Sharp Unavailable Rasheeda Newton RD Unavailable [phone] Unavailable [phone] Fritz HENDERSON MD, Shlomo B Primary Care Provider [phone] Yuan Miller MD, PhD Unavailable [phone] Source Comments In the event this information is protected by the Federal Confidentiality of Alcohol and Drug AbusePatient Records regulations: The Federal rules restrict any use of the information to criminally investigate or prosecute any alcohol or drug abuse patient.[facility] Encounter Details Date Type Department Care Team (Late st Contact Info) Description 03/09/2024 Get Medical Advice Rheumatology [address] [phone] [place] [address] [place], [place] [phone] Ultra sounds Social History Tobacco Use Types [...] 10:00 AM EDT Hospital Encounter Admitting [address] [place] [address] [place] [address] [place] [address] Nausea and vomiting, unspecified vomiting type [R11.2], H/O bariatric surgery [Z98.84], Jejunostomy tube fell out [T85.528A] 04/10/2025 10:00 AM EDT - 04/10/2025 12:00 PM EDT Surgery Admitting 9500 [place] [address] Yuan Miller MD, PhD 9500 [place] [address] LAPAROSCOPIC JEJUNOSTOMY 04/19/2025 11:00 AM EDT [facility] Neurological Amish [address] [phone] Joann Loera, ASSISTANT AUDITOR.MANUFACTURING SUPERVISOR 9500 [place] [address] Cognitive movement issues 04/21/2025 8:30 AM EDT [facility] Nutrition Therapy [address] [phone] Tiffany Banks, RD [address] [place] [address] [phone] f/u TF forula tolerance and hydration 05/18/2025 9:00 AM T [facility] General Surgery [address] [phone] Michael Mora PA-C [address] [phone] f/u with michael mora in 2 wks 05/29/2025 9:00 AM T [facility] Gastroenterology [address] 3602606 Johanna Martinez MD [facility] [address] [phone] 3 month follow up 06/28/2025 10:00 AM T [facility] Neurology Pain [address] [place] [address] [place] [address] [place] [address] Follow up for pain Scheduled Procedures Name [...] documented as of this encounter Care Teams Cloud Architect Relationship Specialty Start Date End Date Shlomo Hu II, MD 112 [facility] 110 [place] [address] PCP - General Internal Medicine 10/06/23 Jacob Sharp [address] [address] [phone] Referring 04/30/[address] [place] [address] [phone] Registered Dietitian Nutrition 06/24/[address] [place], [place] 15026[address] Registered Dietitian Nutrition 08/27/23 Yuan Miller MD, PhD [address] [place], [place] 2322295 Surgeon General Surgery 02/03/24 documented as of this encounter
--- OUTSIDE RECORDS SUMMARY | 2025-04-09 12:03 | XMS_ITS | Encounter Summary ---
Author Organization [facility] Address [address]00 [place] [address] Care Team Providers Care Qa Automation Engineer Name Role Phone Jacob Sharp Unavailable Rasheeda Newton RD Unavailable [phone] Unavailable [phone] Fritz HENDERSON MD, Shlomo Momin Primary Care Provider [phone] Yuan Miller MD, PhD Unavailable [phone] Source Comments In the event this information is protected by the Federal Confidentiality of Alcohol and Drug AbusePatient Records regulations: The Federal rules restrict any use of the information to criminally investigate or prosecute any alcohol or drug abuse patient.[facility] Encounter Details Date Type Department Care Team (Late st Contact Info) Description 03/07/2024 Patient Msg General Surgery [address] [phone] Provider, [facility] DDI appointment reminder Social History [...] is lower risk 4 03/05/2023 Data from: https://www.neighborhoodatlas.medicine.[facility].edu/. Last address used for calculation [address] [...] EDT Hospital Encounter Admitting [facility] [place] [address] Yuan Miller MD, PhD [address] [place] [address] Nausea and vomiting, unspecified vomiting type [R11.2], H/O bariatric surgery [Z98.84], Jejunostomy tube fell out [T85.528A] 04/10/2025 10:00 AM EDT - 04/10/2025 12:00 PM EDT Surgery Admitting [facility] [place] [address] Yuan Miller MD, PhD [address] [phone] LAPAROSCOPIC JEJUNOSTOMY 04/19/2025 11:00 AM EDT [facility] Neurological Taoism [address] [phone] Joann Loera APRN.CORE STACKER 9500 [place] [address] Cognitive movement issues 04/21/2025 8:30 AM EDT [facility] Nutrition Therapy [address] [phone] Tiffany Banks, RD 9500 [place] [address] f/u TF forula tolerance and hydration 05/18/2025 9:00 AM EDT [facility] General Surgery 9300 [place] [address] Michael Mora PA-C 9500 [place] [address] f/u with michael mora in 2 wks 05/29/2025 9:00 AM EDT [facility] Gastroenterology 2048 [place] [address] Johanna Martinez MD [facility] [address] [phone] 3 month follow up 06/28/2025 10:00 AM EDT [facility] Neurology Pain [address] [place] 9034206 [place] [address] [place] [address] [phone] Follow up for pain Scheduled Procedures Name [...] documented as of this encounter Care Teams Qa Automation Engineer Relationship Specialty Start Date End Date Shlomo Hu II, MD [address] [facility] 110 [place] [address] PCP - General Internal Medicine 10/06/23 Jacob Sharp [address] [place] [address] Referring 04/30/[address] [place] [address] Registered Dietitian Nutrition 06/24/[address] [facility] [place] [address] Registered Dietitian Nutrition 08/27/23 Yuan Miller MD, PhD 9500 [place], [place] [phone] Surgeon General Surgery 02/03/24 documented as of this encounter
--- OUTSIDE RECORDS SUMMARY | 2025-04-09 12:03 | XMS_ITS | Encounter Summary ---
Author Organization [facility] Address [address]00 [place] [address] Care Team Providers Care Talcer Name Role Phone Jacob Sharp Unavailable Rasheeda Newton RD Unavailable [phone] Unavailable [phone] Fritz HENDERSON MD, Shlomo B Primary Care Provider [phone] Yuan Miller MD, PhD Unavailable [phone] Source Comments In the event this information is protected by the Federal Confidentiality of Alcohol and Drug AbusePatient Records regulations: The Federal rules restrict any use of the information to criminally investigate or prosecute any alcohol or drug abuse patient.[facility] Encounter Details Date Type Department Care Team (Late st Contact Info) Description 03/15/2024 Get Medical Advice Neurology 9300 [place] [address] Yg Solitario MD 2474 [place] [address] Pain Social History Tobacco Use [...] risk 4 03/05/2023 Data from: https://www.neighborhoodatlas.medicine.[facility].edu/. Last address used for calculation 1744 [...] 10:00 AM EDT Hospital Encounter Admitting [address] [place] [address] Yuan Miller MD, PhD [address] [place] [address] Nausea and vomiting, unspecified vomiting type [R11.2], H/O bariatric surgery [Z98.84], Jejunostomy tube fell out [T85.528A] 04/10/2025 10:00 AM EDT - 04/10/2025 12:00 PM EDT Surgery Admitting 9500 [place] [address] Yuan Miller MD, PhD 9500 [place] [address] LAPAROSCOPIC JEJUNOSTOMY 04/19/2025 11:00 AM EDT [facility] Neurological Latter-Day [address] [phone] Joann Loera APRN.REMEDIATION PROJECT ENGINEER [address] [phone] Cognitive movement issues 04/21/2025 8:30 AM EDT [facility] Nutrition Therapy [address] [phone] Tiffany Banks, RD [address] [place] 0053195 f/u TF forula tolerance and hydration 05/18/2025 9:00 AM EDT [facility] General Surgery [address] 3373106 Michael Mora PA-C [address] [address] 0053195 f/u with michael mora in 2 wks 05/29/2025 9:00 AM T [facility] Gastroenterology [address] [phone] Johanna Martinez MD [facility] [address] [place], [place] 9[address]1306 3 month follow up 06/28/2025 10:00 AM EDT [facility] Neurology Pain [address] [place] 0053106 [place] [address] [place] [address] [phone] Follow up for pain Scheduled Procedures Name [...] documented as of this encounter Care Teams Talcer Relationship Specialty Start Date End Date Shlomo Hu II, MD [address] [facility] 110 [place] [address] PCP - General Internal Medicine 10/06/23 Jacob Sharp [address] [address] [phone] Referring 04/30/[address] [place] [phone] Registered Dietitian Nutrition 06/24/[address] [place], [place] 14[address] Registered Dietitian Nutrition 08/27/23 Yuan Miller MD, PhD [address] [place], [place] 1785595 Surgeon General Surgery 02/03/24 documented as of this encounter
--- OUTSIDE RECORDS SUMMARY | 2025-04-09 12:03 | XMS_ITS | Encounter Summary ---
Author Organization [facility] Address [address] [place] [address] Care Team Providers Care Logistics Service Representative Name Role Phone Jacob Sharp Unavailable Rasheeda Newton RD Unavailable [phone] Unavailable Fritz HENDERSON MD, Shlomo Momin Primary Care Provider [phone] Yuan Miller MD, PhD Unavailable [phone] Source Comments In the event this information is protected by the Federal Confidentiality of Alcohol and Drug AbusePatient Records regulations: The Federal rules restrict any use of the information to criminally investigate or prosecute any alcohol or drug abuse patient.[facility] Encounter Details Date Type Department Care Team (Late st Contact Info) Description 04/08/2024 Patient Msg Gastroenterology [address] [id number] Provider, [facility] Paperwork needed for Reliz[employer] Social [...] in a fci (including now)? No 02/16/2024 Area Deprivation Index Answer Date Reagan rded National Score (1-100), lower number is lower ri sk 63 03/05/2023 State Score (1-10), lower number is lower risk 4 03/05/2023 Data from: https://www.neighborhoodatlas.medicine.[facility].edu/. Last address used for calculation [address] [...] 10:00 AM EDT Hospital Encounter Admitting [address] [place] [address] Yuan [place], PhD [address] [place] [address] Nausea and vomiting, unspecified vomiting type [R11.2], H/O bariatric surgery [Z98.84], Jejunostomy tube fell out [T85.528A] 04/10/2025 10:00 AM EDT - 04/10/2025 12:00 PM EDT Surgery Admitting [facility] [place] [id number] Yuan Miller MD, PhD [address] [id number] LAPAROSCOPIC JEJUNOSTOMY 04/19/2025 11:00 AM EDT [facility] Neurological Church [address] [phone] Joann Loera APRN.TRAVELING PASSENGER AGENT [address] [place] [address] Cognitive movement issues 04/21/2025 8:30 AM EDT [facility] Nutrition Therapy [address] [place] [address] Tiffany Banks, RD [address] [place] [address] f/u TF forula tolerance and hydration 05/18/2025 9:00 AM EDT [facility] General Surgery [address] [place] [address] Michael Mora PA-C [address] [place] [address] f/u with michael mora in 2 wks 05/29/2025 9:00 AM EDT [facility] Gastroenterology [address] [place] [address] Johanna Martinez MD [facility] [address] [place], [place] [id number] 3 month follow up 06/28/2025 10:00 AM EDT [facility] Neurology Pain [address] [id number] [place] [address] [address] [place] [id number] Follow up for pain Scheduled Procedures Name [...] documented as of this encounter Care Teams Logistics Service Representative Relationship Specialty Start Date End Date Shlomo Hu II, MD 112 [facility] 110 [place] [address] PCP - General Internal Medicine 10/06/23 Jacob Sharp [address] [place] [address] Referring 04/30/[address] [place] [id number] Registered Dietitian Nutrition 06/24/[address] [facility] [place] [phone] Registered Dietitian Nutrition 08/27/23 Yuan Miller MD, PhD [address] [place] [address] Surgeon General Surgery 02/03/24 documented as of this encounter
--- OUTSIDE RECORDS SUMMARY | 2025-04-09 12:03 | XMS_ITS | Encounter Summary ---
Author Organization [facility] Address [address] [place] [address] Care Team Providers Care Knife Blade Polisher Name Role Phone Jacob Sharp Unavailable Rasheeda Newton RD Unavailable [phone] Unavailable [phone] Fritz HENDERSON MD, Shlomo B Primary Care Provider [phone] Yuan Miller MD, PhD Unavailable [phone] Source Comments In the event this [...] 04/10/2024 Get Medical Advice General Surgery [address] [place] [address] Michael Mora PA-C [address] [place] [address] Feeding tube Social History Tobacco [...] risk 4 03/05/2023 Data from: https://www.neighborhoodatlas.medicine.[facility].edu/. Last address used for calculation [address] [...] 04/10/2025 10:00 AM EDT Hospital Encounter Admitting [address] [place] [address] Yuan [place] [address] [place] [address] Nausea and vomiting, unspecified vomiting type [R11.2], H/O bariatric surgery [Z98.84], Jejunostomy tube fell out [T85.528A] 04/10/2025 10:00 AM EDT - 04/10/2025 12:00 PM EDT Surgery Admitting [address] [place] [address] Yuan Miller MD, PhD [address] [place] [address] LAPAROSCOPIC JEJUNOSTOMY 04/19/2025 11:00 AM EDT [facility] Neurological [facility] [address] [id number] Joann Loera, KNIFE BLADE POLISHER.AWAKE OVERNIGHT COUNSELOR [address] [place] [address] Cognitive movement issues 04/21/2025 8:30 AM EDT [facility] Nutrition Therapy [address] [place] [address] [phone] Tiffany Banks, RD [address] [place] [id number] f/u TF forula tolerance and hydration 05/18/2025 9:00 AM T [facility] General Surgery [address] [phone] Michael Mora PA-C [address] [address] [id number] f/u with michael mora in 2 wks 05/29/2025 9:00 AM T [facility] Gastroenterology [address] [phone] Johanna Martinez MD [facility] [address] [id number] 3 month follow up 06/28/2025 10:00 AM T [facility] Neurology Pain [address] [place] [address] [place] [address] [place] [address] Follow up for pain Scheduled Procedures Name [...] documented as of this encounter Care Teams Knife Blade Polisher Relationship Specialty Start Date End Date Shlomo Hu II, MD 112 [facility] 110 [place] [address] PCP - General Internal Medicine 10/06/23 Jacob Sharp [address] [address] [phone] Referring 04/30/[address] [place] [phone] Registered Dietitian Nutrition 06/24/[address] [place], [place] [phone] Registered Dietitian Nutrition 08/27/23 Yuan Miller MD, PhD [address] [place], [place] [phone] Surgeon General Surgery 02/03/24 documented as of this encounter
--- OUTSIDE RECORDS SUMMARY | 2025-04-09 12:03 | XMS_ITS | Encounter Summary ---
Author Organization [facility] Address [address] [place] [address] Care Team Providers Care Washtub Worker Helper Name Role Phone Shlomo Hu MD Primary Care Provider [phone] Jess Marsh LPN Unavailable Esthela Tesfaye SUBWAY GUARD Unavailable [phone] Encounter Details Date Type Department Care [...] you attend chur ch or samaritan services? 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 Not on file [...] PODIATRY [address] [place] [address] Sonny Rodriguez DPM [address] [address] 05/04/2025 2:50 PM EDT Office Visit [facility] [address] [place] [address] Sonny Rodriguez DPLudmila [address] [address] documented as of this encounter Visit Diagnoses Not on filedocumented in this encounter Additional Health Concerns Assessment Noted Time PHQ-9 Depression Total Score: 18 024 9:42 AM EDT documented as of this encounter Care Teams Washtub Worker Helper Relationship Specialty Start Date End Date Shlomo Hu MD [address] [place] [address] PCP - General Internal Medicine 02/15/23 Jess Marsh LPN [address] [place] [address] 12/06/24 Esthela Tesfaye, SUBWAY GUARD [address] [place] [address] Vice President Of Software Engineering Family Medicine 02/03/25 documented as of this encounter
--- OUTSIDE RECORDS SUMMARY | 2025-04-09 12:03 | XMS_ITS | Clinical Summary ---
Author Organization [facility] Address [address] [place] [address] Care Team Providers Care Underground Electrician Name Role Phone Shlomo Hu MD Primary Care Provider [phone] Jess Marsh TOP CLEANER Unavailable Esthela Tesfaye RECEIVING BARN CUSTODIAN Unavailable [phone] Allergies Active Allergy Reactions Criticality Noted Date Comments Aspartame Headache,Nausea Only 05/21/2022 Dobutamine Other 12/21/2024 Results documented on echo, cause KIMBERLEY Doxycycline Rash Low 11/18/2023 Ketorolac Unknown 01/15/2023 Paroxetine 08/08/2022 Other Reaction(s): Intolerance Gi upset Scopolamine Unknown 07/29/2022 Blurred vision Tramadol Unknown 01/15/2023 Medications B Complex Vitamins (vitamin B complex) tablet 2021 Active RA Vitamin D-3 25 MCG (1000 UT) tablet Active levothyroxine (Synthroid) 50 MCG tablet 1 (one) time each day at the same time Active metoprolol tartrate (Lopressor) 25 MG tablet Active Fructooligosaccharid es (FOS PO) 2022 Active dicyclomine (Bentyl) 20 MG tablet Take 20 mg by mouth in the morning and 20 mg in the evening. 2022 Active esomeprazole (NexIUM) [address] capsule Take 40 mg by mouth in the morning and 40 mg in the evening. 2023 Active baclofen (Lioresal) 10 MG tabletIndications:Hi story of Dylon-en-Y gastric bypass Take 1 tablet (10 mg) by mouth in the morning and 1 tablet (10 mg) in the evening and 1 tablet (10 mg) before bedtime. 270 tablet 3 2023 Active ondansetron ODT (Zofran-ODT) 4 MG disintegrating tabletIndications:Na usea and vomiting, unspecified vomiting type Take 1 tablet (4 mg) by mouth every 8 (eight) hours if needed for nausea or vomiting 42 tablet 5 2023 Active methocarbamol (Robaxin) 750 MG tablet Take 750 mg by mouth every 8 (eight) hours if needed 2023 Active eletriptan (Relpax) 40 MG tabletIndications:No nintractable headache, unspecified chronicity pattern, unspecified headache type Take 1 tablet (40 mg) by mouth 1 (one) time if needed for migraine for up to 108 doses May repeat in 2 hours if unresolved. Do not exceed 80 mg in 24 hours. 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 Take with meals 30 tablet 2 2024 Active traZODone (Desyrel) 100 MG tabletIndications:In somnia, unspecified type Take 2 tablets (200 mg) by mouth as needed at bedtime for sleep 60 tablet 2 2024 Active Cyanocobalamin (B-12 Compliance Injection) 1000 MCG/ML kitIndications:Histo ry of Dylon-en-Y gastric bypass Inject 1,000 mcg as directed 1 (one) time per week 12 kit 3 09/22 Active Syringe/Needle, Disp, (Luer Lock Safety Syringes) 25G X 1 3 ML miscIndications:Hist ory of Dylon-en-Y gastric bypass 1 Syringe 1 (one) time per week 12 each 3 09/22 Active zinc oxide (Desitin) 40 % paste Apply 1 application topically if needed (J tube care) 2023 Active naloxone (Narcan) 4 mg/0.1 mL nasal spray Administer 4 mg into affected nostril(s) if needed for opioid reversal 2023 Active memantine (Namenda) 5 MG tablet Take 5 mg by mouth in the morning and 5 mg before bedtime. 2023 Active clobetasol (Temovate) 0.05 % cream Apply 1 Application topically in the morning and 1 Application in the evening. 2023 Active estradiol (Estrace) 0.5 MG tablet Take 0.5 mg by mouth in the morning. 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 120 tablet 2 2024 Active Skin Protectants, Misc. (InterDry 10 x36 ) sheetIndications:Can didiasis of skin Apply 1 Application topically Daily 30 each 11 2024 Active colestipol (Colestid) 5 g granules Take 5 g by mouth in the morning and 5 g in the evening. 2024 Active Suzetrigine (Journavx) 50 MG tablet 2024 Active ergocalciferol (Vitamin D-2) 1.25 MG (73716 UT) capsuleIndications:V itamin D deficiency Take 1 capsule (1.25 mg) by mouth 1 (one) time per week 12 capsule 1 06/21 Active pyridoxine (B-6) 50 MG tablet Take 50 mg by mouth in the morning. 2023 Active psyllium (Metamucil) 400 MG capsule Take 5 capsules by mouth in the morning and 5 capsules at noon and 5 capsules in the evening and 5 capsules before bedtime. Active gabapentin (Neurontin) 300 MG capsuleIndications:C hronic pain syndrome Take 1 capsule (300 mg) by mouth in the morning and 1 capsule (300 mg) in the evening and 1 capsule (300 mg) before bedtime. 01/05 Active tiZANidine (Zanaflex) 4 MG tabletIndications:Ch ronic pain syndrome Take 2 tablets (8 mg) by mouth every 8 (eight) hours if needed for muscle spasms 180 tablet 2 2024 Active Rimegepant Sulfate (Nurtec) 75 MG tablet dispersibleIndicatio ns:Chronic migraine without aura with status migrainosus, not intractable Place 1 tablet under the tongue See administration instructions Every other day as needed for migraine 16 tablet 5 2024 Active gabapentin (Neurontin) 600 MG tabletIndications:Ne uropathic pain Take 2 tablets (1,200 mg) by mouth in the morning and 2 tablets (1,200 mg) in the evening and 2 tablets (1,200 mg) before bedtime. 180 tablet 2 06/14 Active estradiol (Estrace) 0.1 MG/GM vaginal creamIndications:Pos tmenopausal atrophic vaginitis Apply to vagina nightly for 2 week then every Thursday/Thursday /Thursday. 42.5 g 3 03/16 Active potassium chloride (Klor-Con) 20 MEQ packetIndications:Hy pokalemia Take 20 mEq by mouth Daily 30 packet 2 2024 Active azithromycin (Zithromax) 250 MG tablet Take 250 mg by mouth in the morning. 04/12 Active lactobacillus (Culturelle) capsule Take 1 capsule by mouth in the morning. 05/05 Active ondansetron, PF, (Zofran) 2 mg/mL solution injectionIndications :History of campylobacteriosis Infuse 2 mL (4 mg) over 15 minutes into a venous catheter every 8 (eight) hours if needed (as needed) for up to 10 days 60 mL 04/16 Active sodium chloride 0.9 % solutionIndications: Intractable nausea and vomiting 1 liter daily X 3 days 1000 mL 2 04/09 Active oxyCODONE (Roxicodone) 5 MG immediate release tabletIndications:Ch ronic pain syndrome Take 1 tablet (5 mg) by mouth every 6 (six) hours if needed for severe pain for up to 3 days 12 tablet 04/095 Active ertapenem 1 g in sodium chloride 0.9 % 50 mL IVPBIndications:Hist ory of campylobacteriosis Infuse 1 g at 100 mL/hr over 30 minutes into a venous catheter 1 (one) time each day at the same time for 7 days 1 each 04/13 Active Vitamin D-Vitamin K (K2-D3 5000) 5000-90 UNIT-MCG capsule Take 1 capsule by mouth in the morning. 03/16 Discontinued( Discontinued by another clinician) Nutritional Supplements (Peptamen 1.5 Rosales) liquid 35 mL/hr by Enteral route in the morning. Goal Rate (mL/hr x hours): 35 mL/hour x 22 hours (770 total mL, 1155 kcal, 52 gm protein, 594 mL free water). Hold TF 1 hour pre and post synthroid dose. 03/16 Discontinued( Discontinued by another clinician) gabapentin (Neurontin) 600 MG tablet Take 600 mg by mouth in the morning and 600 mg in the evening and 600 mg before bedtime. 03/16 Discontinued( Reorder) rOPINIRole (Requip) 0.5 MG tabletIndications:Re stless Leg Syndrome Take 1-2 tablets (0.5-1 mg) by mouth in the morning and 1-2 tablets (0.5-1 mg) in the evening and 1-2 tablets (0.5-1 mg) before bedtime. 180 tablet 2 03/16 Discontinued( Discontinued by another clinician) rizatriptan (Maxalt) 10 MG tabletIndications:Ch ronic migraine without aura with status migrainosus, not intractable Take 1 tablet (10 mg) by mouth 1 (one) time if needed for migraine May repeat in 2 hours if unresolved. Do not exceed 30 mg in 24 hours. 8 tablet 1 03/16 Discontinued( Discontinued by another clinician) amoxicillin-clavulan ate (Augmentin) 875-125 MG tabletIndications:Ch ronic wound infection of abdomen, subsequent encounter Take 1 tablet (875 mg) by mouth in the morning and 1 tablet (875 mg) before bedtime. Do all this for 10 days. 20 tablet 03/26 mupirocin (Bactroban) 2 % ointmentIndications: Chronic wound infection of abdomen, subsequent encounter Apply topically in the morning and in the evening and before bedtime. Do all this for 10 days. 22 g 03/26 ertapenem 1 g in sodium chloride 0.9 % 50 mL IVPBIndications:Hist ory of campylobacteriosis Infuse 1 g at 100 mL/hr over 30 minutes into a venous catheter 1 (one) time each day at the same time 1 each 04/06 Discontinued Active Problems Problem Noted Date Diagnosed [...] 11/12/2023 Complications of gastric bypass surgery 10/27/19 24 Dehydration 10/27/2023 Gastroparesis 10/27/2023 Hypokalemia 10/27/2023 Hypomagnesemia 10/27/2023 Pyloric stenosis (HHS-HCC) 10/27/2023 FTT (failure to thrive) in adult 08/16/2023 Intestinal malabsorption 08/16/2023 On tube feeding diet 08/16/2023 Myalgia 08/13/2023 Malnutrition of moderate degree ([facility]) 2022 Morbid obesity 05/04/2023 Overview (05/04/2023): Last [...] insulin 03/02/2023 10/21/2023 Malnutrition of mild degree (HHS-HCC) 06/26/2022 01/21/2024 Overview (05/04/2023): Last Assessment & Plan: Assessment: receiving TPN through PICC line due to inability to eat/ abdominal pain Baldness 05/13/2022 09/15/2023 Encounters Date Type Department Care Team Description 04/07/2025 Telephone [facility] [address] [place] [address] Jess Marsh LPN 04/06/2025 8:00 AM EDT Office Visit [facility] [address] [facility] [[email or web address]] [address] [place] [address] Angelina Polk, FELICITA History of campylobacteriosis (Primary Dx); Chronic pain syndrome 04/06/2025 Telephone [facility] [address] [facility] [[email or web address]] [address] [place] [phone] Angelina Polk, FELICITA 04/06/2025 External Result Encounter [facility] [address] [facility] [[email or web address]] [address] [place] [address] Angelina Polk, FELICITA 04/06/2025 Abstract [facility] [address] [place] [address] Jess Marsh LPN 04/06/2025 Patient Outreach [facility] [address] [place] [address] Jess Marsh LPN 04/06/2025 Telephone [facility] [address] [place] [address] Angelina Polk, FELICITA 04/06/2025 Bamboo flowsheet [facility] [address] [place] [address] Angelina Polk, FELICITA 04/06/2025 Travel 04/05/2025 Patient Outreach [facility] [address] [place] [address] Jess Marsh LPN 04/04/2025 Travel 04/03/2025 Abstract [facility] [address] [place] [address] Shlomo Hu MD 03/31/2025 Clinisync Result Encounter [facility] External Department Unsolicited Provider, Generic External Data 03/31/2025 Abstract [facility] [address] [place] [address] Shlomo Hu MD 03/30/2025 Abstract [facility] [address] [place] [address] Shlomo Hu MD 03/29/2025 Patient Outreach [facility] [address] [place] [address] Jess Marsh LPN 03/29/2025 Abstract [facility] [address] [place] [address] Shlomo Hu MD 03/29/2025 Abstract [facility] [address] [place] [address] Shlomo Hu MD 03/28/2025 Abstract [facility] [address] [place] [address] Shlomo Hu MD 03/28/2025 Results Follow-Up [facility] [address] [place] [address] Yanci Aguilar PA Hypokalemia (Primary Dx) 03/28/2025 Clinisync Result Encounter [facility] External Department Unsolicited Yanci Aguilar PA 03/27/2025 2:30 PM EDT Office Visit [facility] [address] [place] [address] Yanci Aguilar PA Change in stool (Primary Dx); Watery stools; Left arm swelling; Nausea and vomiting, unspecified vomiting type; Lymphedema; Feeding difficulties; History of Clostridium difficile colitis 03/27/2025 Travel 03/16/2025 9:30 AM EDT Office Visit [facility] [address] [address] [place] [address] Angelina Polk NP Neuropathic pain (Primary Dx); Apraxia of speech; Hypertrophic cardiomyopathy (HCC); Disorder of stomach; S/P bariatric surgery; History of Dylon-en-Y gastric bypass; Jejunostomy tube present (HCC); Jejunostomy site infection (HCC); Feeding difficulties; Chronic wound infection of abdomen, subsequent encounter; Postmenopausal atrophic vaginitis 03/16/2025 Patient Outreach [facility] [address] [place] [address] Jess Marsh LPN 03/16/2025 Bamboo flowsheet [facility] [address] [place] [address] Angelina Polk GLASSWARE MAKER 03/16/2025 Travel 03/15/2025 Travel 03/15/2025 Orders Only [facility] [address] [place] [phone] Melba Gerardo Preop examination 03/15/2025 Abstract [facility] [address] [facility] [[email or web address]] [address] [place] [address] Shlomo Hu MD 03/09/2025 11:30 AM EDT Ancillary Procedure [facility] [address] [place] [address] Other abnormal and inconclusive findings on diagnostic imaging of breast 03/09/2025 11:00 AM EDT Ancillary Procedure [facility] [address] [place] [address] Other abnormal and inconclusive findings on diagnostic imaging of breast 03/09/2025 Travel 03/07/2025 Telephone [facility] [address] [facility] [[email or web address]] [address] [place] [address] Claribel Gomes MA 03/07/2025 Travel 03/07/2025 Telephone [facility] [address] [facility] [[email or web address]] [address] [place] [address] Yanci Aguilar, PA 03/06/2025 Telephone [facility] [address] [facility] [[email or web address]] [address] [place] [address] Yanci Aguilar, PA 03/01/2025 Patient Outreach [facility] [address] [place] [address] Claribel Scott RN 02/28/2025 Telephone [facility] [address] [facility] [[email or web address]] [address] [place] [address] Sadie Nina Med Refill 02/22/2025 Patient Outreach [facility] [address] [place] [address] Esthela Tesfaye LSW 02/21/2025 Patient Outreach [facility] [address] [place] [address] Claribel Scott, PIETRO 02/15/2025 Clinisync Result Encounter [facility] External Department Unsolicited Provider, Generic External Data 02/15/2025 Abstract [facility] [address] [facility] [[email or web address]] [address] [place] [address] Shlomo Hu MD 02/14/2025 Abstract [facility] [address] [facility] [[email or web address]] [address] [place] [address] Shlomo Hu MD 02/02/2025 10:10 AM EDT Office Visit [facility] [address] [facility] [[email or web address]] [address] [place] [address] Sonny Rodriguez, DPLudmila Contusion of fifth toe of left foot, initial encounter (Primary Dx); Paronychia, toe, left; Hav (hallux abducto valgus), left; Hav (hallux abducto valgus), right; Metatarsal deformity, left; Acquired deformity of left toe 02/02/2025 Abstract [facility] [address] [facility] [[email or web address]] [address] [place] [address] Shlomo Hu MD 02/02/2025 Telephone [facility] [address] [facility] [[email or web address]] [address] [place] [address] Sonny Rodriguez DPM 02/02/2025 Bamboo flowsheet [facility] [address] [facility] [[email or web address]] [address] [place] [address] Sonny Rodriguez DPM 02/02/2025 Travel 02/01/2025 Patient Outreach [facility] [employer] [address] [place] [address] Esthela Tesfaye, KIRA 02/01/2025 Travel 01/31/2025 Abstract [facility] [address] [email or web address]] [address] [place] [address] Shlomo Hu MD 01/31/2025 Abstract [facility] [address] [email or web address]] [address] [place] [address] Shlomo Hu MD 01/27/2025 Patient Outreach [facility] [address] [place] [address] Jess Marsh TOP CLEANER 01/23/2025 Clinisync Result Encounter [facility] External Department Unsolicited Provider, Generic External Data 01/10/2025 Patient Outreach [facility] [address] [place] [address] Radhames Marshkalie TOP CLEANER 01/10/2025 Telephone [facility] [address] [place] [address] Jess Marsh, TOP CLEANER 01/10/20[address] Telephone [facility] [address] [facility] [address] [place] [address] Yanci Aguilar PA 01/09/2025 Abstract [facility] [address] [place] [address] Shlomo Hu MD from Last 3 Months [...] often do you attend chur ch or temple services? 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 Not on file Not on file Not on file Last Filed Vital Signs Vital Sign Reading Time Taken Comments Blood Pressure 118/64 04/06/2025 8:09 AM EDT Pulse 102 04/06/2025 8:09 AM EDT Temperature 37.4 C (99.4 F) 11/02/2023 10:09 AM EST Respiratory Rate 16 04/06/2025 8:09 AM EDT Oxygen Saturation 97% 04/06/2025 8:09 AM EDT Inhaled Oxygen Concentration - - Weight 97.1 kg (214 lb) 04/06/2025 8:09 AM EDT Height 175.3 cm (5' 9 ) 04/06/2025 8:09 AM EDT Body Mass Index 31.6 04/06/2025 8:09 AM EDT Plan of Treatment Upcoming Encounters Date Type Department Care Team (Late st Contact Info) Description 04/20/2025 3:00 PM EDT Office Visit [facility] [address] [facility] [[email or web address] [address] [place] [address] Sonny Rodriguez DPM [address] [address] 05/04/2025 2:50 PM EDT Office Visit [facility] [address] [facility] [[email or web address]] [address] [place] [address] Sonny Rodriguez DPM [address] [address] Health Maintenance Due Date Last Done Comments CT Colonography 1976 FIT-DNA 1976 FIT 1976 Sigmoidoscopy 1976 Diabetes: Retinopathy Screening 1986 Diabetes: Urine Protein Screening 1995 FOBT 04/08/2024 04/08/2023 Diabetes: Hemoglobin A1C 01/04/2025 025, 10/04/2024, 04/15/2024, Additional history exists Influenza Vaccine (#1) 2025 , 08/09/2023, 06/16/2022, Additional history exists Mammogram 03/09/2026 03/09/2025, 06/0 12/2024, 02/15/2025, Additional history exists Colonoscopy 10/22/2033 10/22/2023, 09/15, 04/23/2023, Additional history exists Colorectal Cancer Screening 10/22/2033 Procedures Procedure Name Priority Date/Time Associated Diagnosis Comments IR CVC PICC 04/06/2025 2:22 PM EDT [facility] URINALYSIS COMPLETE PNL UR Routine 03/31/2025 1:01 PM EDT [facility] GI PATHOGENS STL MEAGAN+PROBE Routine 03/31/2025 8:02 AM EDT [facility] C DIFF TOX GENS STL QL MEAGAN+PROBE Routine 03/31/2025 8:02 AM EDT [facility] MAGNESIUM SERPL-MCNC Routine 03/31/2025 6:41 AM EDT CAMPYLOBACTER CULTURE Routine 03/28/2025 9:43 AM EDT SALMONELLA/SHIGELLA SCREEN Routine 03/28/2025 9:43 AM EDT E COLI SHIGA TOXIN EIA Routine 9:43 AM EDT C. DIFFICILE PCR Routine 03/28/2025 9:43 AM EDT ALL BASIC METABOLIC PANEL Routine 03/28/2025 9:19 AM EDT ALL CBC WITH AUTO DIFF Routine 9:19 AM EDT BI US BREAST LIMITED RIGHT Routine 03/09/2025 [...] Routine 01/23/2025 11:47 AM EDT [facility] TY NATIONAL ACCOUNT REPRESENTATIVE AB SER-ACNC Routine 01/24/20 11:47 AM EDT [...] QN WESTRGRN Routine 01/24/20 11:47 AM EDT POCT GLYCATED HEMOGLOBIN, TOTAL Routine 10/06/2024 3:56 PM EST Abnormal glucose tolerance test COLONOSCOPY DIAGNOSTIC Routine 2:44 PM EST from Last 3 Months or Most Recently Relevant to Health Maintenance Results * IR CVC picc (04/06/2025 2:22 PM EDT) Anatomical Region Laterality Modality X-Ray Angiograph y 04/06/2025 2:22 PM EDT Narrative 04/06/2025 2:22 PM EDT THIS EXAM WAS PERFORMED AT [facility] No Reading Required. This procedure does not require a formal dictation. Non-Radiologist provider performed procedures can be reviewed under Post-Op, Procedure or Progress notes. For full report details, please reach out to your physician. Effective 01/29/2021 this image will be visible to you in MyChart. Procedure Note Radiology, Radiologist, MD - 04/06/2025 THIS EXAM WAS PERFORMED AT [facility] No Reading Required. This procedure does not require a formal dictation. Non-Radiologist provider performed procedures can be reviewed under Post-Op, Procedure or Progress notes. For full report details, please reach out to your physician. Effective 01/29/2021 this image will be visible to you in MyChart. us Angelina Polk GLASSWARE MAKER IMG IR PROCEDURES Final Result * (ABNORMAL) [facility] URINALYSIS COMPLETE PNL UR (03/31/2025 1:01 PM EDT) Only the most recent of2 resultswithin the time period is included. [facility] COLOR UR Yellow Yellow [facility] [...] PM EDT 03/31/2025 1:21 PM EDT Narrative CLINISYNC - 03/31/2025 1:38 PM EDT Specimen Type: URINE SPECIMEN Ordering Facility: [facility] Address: [address] [place] [address] Original Ordering Provider: CECIL EMERSON us Generic External Data Provider CLINROBERTONC F inalinda Result Performing Organization Address City/State/[facility] Co de Phone [place] [address] [place] [address] * (ABNORMAL) [facility] GI PATHOGENS STL MEAGAN+PROBE (03/31/2025 8:02 AM EDT) Pathologist [facility] CAMPYLOBACTER DNA SPEC MEAGAN+PROBE Detected(A) Not Detected [facility] SALMONELLA DNA SPEC QL MEAGAN+PROBE Not detected Not Detected [facility] SHIGA TOXIN STX GENE SPEC MEAGAN+PROBE Not detected Not Detected [facility] SHIGELLA DNA SPEC QL MEAGAN+PROBE Not detected Not Detected [facility] 03/31/2025 8:02 AM EDT 03/31/2025 1:46 PM EDT Narrative CLINISYNC - 03/31/2025 10:20 PM EDT Specimen Type: STOOL SPECIMEN Ordering Facility: [facility] Address: [address] [place] [address] Original Ordering Provider: BUDDY RAMOS us Generic External Data Provider CLINISYNC F inal Result Performing Organization Address [facility] Co de Phone Number [facility] [address] [phone] * [facility] C DIFF TOX GENS STL QL MEAGAN+PROBE (03/31/2025 8:02 AM EDT) [facility] C DIFF TOX GENS STL QL MEAGAN+PROBE Negative for C. difficile toxin by PCR Negative for C. difficile toxin by PCR [facility] 03/31/2025 8:02 AM EDT 03/31/2025 1:46 PM EDT Narrative CLINISYNC - 03/31/2025 5:48 PM EDT Specimen Type: STOOL SPECIMEN Ordering Facility: [facility] Address: [address] [place] [address] Original Ordering Provider: BUDDY RAMOS Generic External Data Provider CLINISYNC F inal Result Performing Organization Address [place] [facility] Phone Number [facility]ERRATNC [facility] [address] [phone] * [facility] MAGNESIUM SERPL-MCNC (03/31/2025 6:41 AM EDT) [facility] MAGNESIUM SERPL-MCNC 2.1 1.7 - 2.3 mg/dL [facility] 03/31/2025 6:41 AM EDT 03/31/2025 7:04 AM EDT Narrative CLINISYNC - 03/31/2025 11:36 AM EDT Specimen Type: BLOOD SPECIMEN Ordering Facility: [facility] Address: [address] [place] [address] Original Ordering Provider: FLACA WEBB us Generic External Data Provider CLINISYNC F inal Result Performing Organization Address City/[facility] Co de Phone Number CLINISYNC [address] [address] [place] [address] * C. DIFFICILE PCR (03/28/2025 9:43 AM EDT) C. DIFFICILE PCR NEGATIVE [facility] 03/28/2025 9:43 AM EDT 03/28/2025 10:24 AM EDT [facility]/28/[facility] 2:14 PM EDT Yanci PORTER LAB BLOOD ORDERABLES Final Res ult Performing Organization Address City/[facility]/ZIP Co de Phone Number [facility] * CAMPYLOBACTER CULTURE (03/28/2025 9:43 AM EDT) CAMPYLOBACTER CULTURE Campylobacter Culture No Campylobacter species isolated. [facility] 03/28/2025 9:43 AM EDT 03/28/2025 10:24 AM EDT Narrative [facility] - 04/01/2025 5:09 PM EDT Yanci PORTER LAB BLOOD ORDERABLES Final Res ult Performing Organization Address [facility]/ZIP Co de Phone Number [facility] * SALMONELLA/SHIGELLA SCREEN (03/28/2025 9:43 AM EDT) SALMONELLA/SH IGELLA SCREEN Salmonella/Ching gella Screen [facility] SALMONELLA/SH IGELLA SCREEN No Salmonella or Shigella recovered. [facility] 03/28/2025 9:43 AM EDT 03/28/2025 10:24 AM EDT Narrative [facility] - 04/01/2025 5:09 PM EDT Yanci Aguilar PA LAB BLOOD ORDERABLES Final Res ult Performing Organization Address City/[facility]/ZIP Co de Phone Number [facility] * E COLI SHIGA TOXIN EIA (03/28/2025 9:43 AM EDT) E COLI SHIGA TOXIN EIA E coli Shiga Toxin EIA [facility] E COLI SHIGA TOXIN EIA Negative [facility] E COLI SHIGA TOXIN EIA Performed at: CB - [facility] E COLI SHIGA TOXIN EIA [address] [place], [place] [id number] [facility] E COLI SHIGA TOXIN EIA [employer] Teacher: Scott Harrell PhD, Phone: [phone] [facility] 03/28/2025 9:43 AM EDT 03/28/2025 10:24 AM EDT Narrative MONIKA - 04/01/2025 5:09 PM EDT us Yanci PORTER LAB BLOOD ORDERABLES Final Res ult [facility] * (ABNORMAL) ALL CBC WITH AUTO DIFF (03/28/2025 9:19 AM EDT) TB WBC 5.7 4.0 - 11.0 10 3/uL TBH TBH RBC 4.38 4.20 - 5.40 10 6/uL TBH TBH HGB 12.5 12.0 - 16.0 g/dL TB TB HCT 37.9 36.0 - 48.0 % TB TB MCV 86.5 81.0 - 99.0 fL TB TB MCH 28.5 26.7 - 34.0 pg TBH TB MCHC 33.0 29.9 - 35.2 g/dL TB TB RDW 13.9 11.0 - 15.0 % TBH TBH PLT 329 150 - 450 10 3/uL TB TB MPV 9.9 9.5 - 13.5 fL TB NEUTROPHILS PERCENT AUTO 53.7 43.0 - 75.0 [...] Narrative CLINISYNC - 03/28/2025 9:25 AM EDT us Yanci SANDRAISYPEDRO Final Result CLINISYNC TB * (ABNORMAL) ALL BASIC METABOLIC PANEL (03/28/2025 9:19 AM EDT) SODIUM 145 136 - 145 mmol/L TBH POTASSIUM 3.3(L) 3.5 - 5.1 mmol/L TBH CHLORIDE 107 98 - 107 mmol/L TBH CARBON DIOXIDE 26.8 21.0 - 32.0 mmol/L TBH ANION GAP 14.5 TBH GLUCOSE 93 74 - 106 mg/dL TBH BLOOD UREA NITROGEN 9.0 7.0 - 18.0 mg/dL TBH CREATININE 0.74 0.55 - 1.02 mg/dL TBH TBH EGFR-AF DANISH >60 >=60 mL/min/1.7 3m 2 TBH TBH EGFR-NON AF DANISH >60 >=60 mL/min/1.7 3m 2 TBH BUN CREATININE RATIO 12.2 TBH CALCIUM 8.9 8.5 - 10.1 mg/dL [facility] 03/28/2025 9:19 AM EDT 03/28/2025 9:20 AM EDT Narrative CLINISYNC - 03/28/2025 10:42 AM EDT us Yanci SANDRAISYPEDRO Final Result CLINISYNC TB * Right breast US limited (03/09/2025 11:53 [...] no convincing evidence of neoplasm. us Jeanna Reed MD IMG US PROCEDURES Final Result * Right [...] IS VERY IMPORTANT TO YOUR HEALTH. THE [place] [employer] GUIDELINES RECOMMEND THAT WOMEN 40 YEARS OF AGE AND OLDER SHOULD HAVE A MAMMOGRAM EVERY YEAR. A REMINDER LETTER WILL BE SENT AT THE APPROPRIATE TIME. ELECTRONICALLY SIGNED BY: Abilio Paris M.D. Narrative 03/09/2025 1:59 PM EDT EXAMINATION: BI MAMMOGRAM [...] convincing evidence of neoplasm. us Jeanna Bias MD IMG BI PROCEDURES Final Result * JEMAL SCREENING W LINDSAY (02/15/2025 3:25 [...] Physician Interpretation * * * * RESULT: [address] [place] [address] #[id number] - JEMAL SCREENING W LINDSAY HISTORY: 49 [...] if the patient has dense breast tissue. REF#[id number]. Interpreting Radiologist: Pili Villar M.D. Electronically signed on: 02/17/2025 Conference Services Manager: TIANNA Transcribe Date/Time: Feb 15 2025 3:08P Dictated by : PILI VILLAR MD This examination was interpreted and the report reviewed and electronically signed by: PILI VILLAR MD on Feb 17 2025 10:39AM EST [id number]^[id number] Procedure Note Radiology, Radiologist, - 02/17/2025 * * *Final Report* * * DATE OF EXAM: Feb 15 2025 3:25PM LESTER 0582 - JEMAL SCREENING W LINDSAY / PROCEDURE REASON: Encounter for screening mammogram for malignant neoplasm of breast * * * * Physician Interpretation * * * * RESULT: [address] [place] [address] #[id number] - [facility] SCREENING W LINDSAY HISTORY: 49 year-old patient [...] if the patient has dense breast tissue. REF#[id number]. Interpreting Radiologist: Pili Villar M.D. Electronically signed on: 02/17/2025 Conference Services Manager: TIANNA Transcribe Date/Time: Feb 15 2025 3:08P Dictated by : PILI VILLAR MD This examination was interpreted and the report reviewed and electronically signed by: PILI VILLAR MD on Feb 17 2025 10:39AM EST [id number]^ACN [facility] External Data Provider CLIN[facility]YUT IMAG[facility] Final Result * CCF URINE PROTEIN ELECTROPHORESIS RANDOM (P) (01/23/2025 11:49 AM EDT) CCF ALBUMIN MFR UR ELPH 29.36 % [...] CCF STAFF REVIEW (URINE ELECTRO) Reviewed by Cecil Cedillo MD [facility] 01/23/2025 11:4 9 AM EDT 01/23/2025 4:46 PM EDT Narrative CLINISYNC - 01/25/2025 7:45 AM EDT Specimen Type: URINE SPECIMEN Ordering Facility: [facility] Address: [address] [place] [address] Original Ordering Provider: MELINA VYAS Generic External Data Provider CLINISYNC F inal Result Performing Organization Address [facility] Co de Phone Number MONTSERRATNC [facility] [address] [place], [place] [phone] * CCF PROT/CREAT UR (01/23/2025 11:49 AM [...] EDT Specimen Type: URINE SPECIMEN Ordering Facility: [facility] Address: [address] [place] [address] Original Ordering Provider: MELINA VYAS Generic External Data Provider CLINISYNC F inal Result Performing Organization Address [facility] Co de Phone Number MONIKA CCCris [address] [place], [place] [phone] * CCF PROT UR-MCNC (01/23/2025 11:49 AM EDT) [facility] PROT UR-MCNC 13 0 - 20 mg/dL [facility] 01/23/2025 11:4 9 AM EDT 01/23/2025 2:04 PM EDT Narrative CLINISYNC - 01/24/2025 7:12 PM EDT Specimen Type: URINE SPECIMEN Ordering Facility: [facility] Address: [address] [place] [address] Original Ordering Provider: MELINA VYAS Generic External Data Provider CLINISYNC F inal Result Performing Organization Address [facility] de Phone Number CLINISYNC [facility] [address] [place], [place] [phone] * ALL MONOCLONAL PROTEIN,UR (01/23/2025 11:49 AM EDT) CCF UMPA RESULT No M protein is identified. No M protein is identified. CCF CCF STAFF REVIEW (UMPA) Reviewed by Cecil Cedillo MD [facility] 01/23/2025 11:4 9 AM EDT 01/23/2025 4:46 PM EDT Narrative CLINISYNC - 01/25/2025 7:15 AM EDT Specimen Type: URINE SPECIMEN Ordering Facility: [facility] Address: [address] [place] [address] Original Ordering Provider: MELINA VYAS Generic External Data Provider CLINISYNC F inal Result Performing Organization Address [facility] Co de Phone Number CLINISYNC [facility] [address] [place] [address] * CCF RHEUMATOID FACT SERPL-ACNC (01/23/2025 11:47 AM EDT) CCF RHEUMATOID FACT SERPL-ACNC <10 <16 IU/mL [facility] 01/23/2025 11:4 7 AM EDT 01/23/2025 2:04 PM EDT Narrative CLINISYNC - 01/23/2025 10:06 PM EDT Specimen Type: BLOOD SPECIMEN Ordering Facility: [facility] Address: [address] [place] [address] Original Ordering Provider: MELINA VYAS us Generic External Data Provider CLINISYNC F inal Result Performing Organization Address [facility]/ZIP Co de Phone Number CLINISYNC [facility] [address] [phone] * (ABNORMAL) CCF PROT SERPL-MCNC (01/23/2025 11:47 AM EDT) CCF PROT SERPL-NC 5.9(L) 6.3 - 8.0 g/dL [facility] 01/23/2025 11:4 7 AM EDT 01/23/2025 2:04 PM EDT Narrative CLINISYNC - 01/23/2025 8:20 PM EDT Specimen Type: BLOOD SPECIMEN Ordering Facility: [facility] Address: [address] [place] [address] Original Ordering Provider: MELINA VYAS us Generic External Data Provider CLINISYNC F inal Result Performing Organization Address [facility] Co de Phone Number CLINISYNC [facility] [address] [phone] * CCF ESR BLD QN WESTRGRN (01/23/2025 11:47 AM EDT) Pathologist [facility] ESR BLD QN WESTRGRN 8 0 - 20 mm/hr [facility] 01/23/2025 11:4 7 AM EDT 01/23/2025 1:53 PM EDT Narrative CLINISYNC - 01/23/2025 3:11 PM EDT Specimen Type: BLOOD SPECIMEN Ordering Facility: [facility] Address: [address] [place] [address] Original Ordering Provider: MELINA VYAS us Generic External Data Provider CLINISYNC F inal Result Performing Organization Address City/[facility] Co de Phone Number CLINISYNC [facility] [address] [phone] * CCF TY SS-B AB SER-ACNC (01/23/2025 [...] EDT Specimen Type: BLOOD SPECIMEN Ordering Facility: [facility] Address: [address] [place] [address] Original Ordering Provider: MELINA VYAS Generic External Data Provider CLINISYNC F inal Result Performing Organization Address [facility] de Phone Number MONIKA CONNOR [address] [phone] * CCF TY SS-A AB SER-ACNC (01/23/2025 11:47 AM EDT) CCF SSA ANTIBODY QUAL Negative Negative CCF [facility] TY SS-A AB SER-ACNC <0.2 <1.0 AI CCF Comment:Test Methodology: Mu ltiplex flow immunoassay. 01/23/2025 11:4 7 AM EDT 01/23/2025 4:46 PM EDT Narrative CLINISYNC - 01/24/2025 12:14 PM EDT Specimen Type: BLOOD SPECIMEN Ordering Facility: [facility] Address: [address] [place] [address] Original Ordering Provider: MELINA VYAS us Generic External Data Provider CLINISYNC F inal Result Performing Organization Address [facility] Co de Phone Number MONTSERRATUT GEETA [address] [phone] * CCF TY SM IGG SER-ACNC (01/23/2025 [...] EDT Specimen Type: BLOOD SPECIMEN Ordering Facility: [facility] Address: [address] [place] [address] Original Ordering Provider: MELINA VYAS Generic External Data Provider CLINISYNC F inal Result Performing Organization Address [facility] de Phone Number [employer] [address] [place] [address] * CCF TY SCL70 IGG SER IA-ACNC [...] EDT Specimen Type: BLOOD SPECIMEN Ordering Facility: [facility] Address: [address] [place] [address] Original Ordering Provider: MELINA VYAS Generic External Data Provider CLINISYNC F inal Result Performing Organization Address [facility] de Phone Number [employer] CC [address] [address] * CCF TY NATIONAL ACCOUNT REPRESENTATIVE AB SER-ACNC (01/23/2025 11:47 AM EDT) CCF ANTI-NATIONAL ACCOUNT REPRESENTATIVE QUAL Negative Negative CCF CCF TY NATIONAL ACCOUNT REPRESENTATIVE AB SER-ACNC <0.2 <1.0 AI [facility]CF 01/23/2025 11:4 7 AM EDT 01/23/2025 4:46 PM EDT Narrative CLINISYNC - 01/24/2025 12:14 PM EDT Specimen Type: BLOOD SPECIMEN Ordering Facility: [facility] Address: [address] [place] [address] Original Ordering Provider: MELINA VYAS us Generic External Data Provider CLINISYNC F inal Result Performing Organization Address [facility] Co de Phone Number [facility] [place] [address] [place] [address] * CCF TY JO1 AB SER-ACNC (01/23/2025 [...] EDT Specimen Type: BLOOD SPECIMEN Ordering Facility: [facility] Address: [address] [place] [address] Original Ordering Provider: MELINA VYAS us Generic External Data Provider CLINISYNC F inal Result Performing Organization Address [facility] Co de Phone Number [place] [address] [phone] * CCF CRP SERPL-MCNC (01/23/2025 11:47 AM EDT) Pathologist [facility] CCF CRP SERPL-MCNC <0.3 <0.9 mg/dL C[facility] 01/23/2025 11:4 7 AM EDT 01/23/2025 2:04 PM EDT Narrative CLINISYNC - 01/23/2025 10:06 PM EDT Specimen Type: BLOOD SPECIMEN Ordering Facility: [facility] Address: [address] [place] [address] Original Ordering Provider: MELINA VYAS Generic External Data Provider CLINISYNC F inal Result Performing Organization Address [facility] de Phone Number BOAZISYNC CC [address] [phone] * CCF CK SERPL-CCNC (01/23/2025 11:47 AM EDT) Pathologist [facility] CCF CK SERPL-CCNC 76 42 - 196 U/L CCF 01/23/2025 11:4 7 AM EDT 01/23/2025 2:04 PM EDT Narrative CLINISYNC - 01/23/2025 8:00 PM EDT Specimen Type: BLOOD SPECIMEN Ordering Facility: [facility] Address: [address] [place] [address] Original Ordering Provider: MELINA VYAS Generic External Data Provider CLINISYNC F inal Result Performing Organization Address [facility] de Phone Number BOAZISYNC CCF [address] [address] * CCF CHROMATIN AB SERPL-ACNC (01/23/2025 11:47 AM EDT) Pathologist [facility] CCF CHROMATIN AB QUAL Negative Negative CCF CCF CHROMATIN AB SERPL-ACNC <0.2 <1.0 AI CCF Comment:Test Methodology: Mu ltiplex flow immunoassay. 01/23/2025 11:4 7 AM EDT 01/23/2025 4:46 PM EDT Narrative CLINISYNC - 01/24/2025 12:14 PM EDT Specimen Type: BLOOD SPECIMEN Ordering Facility: [facility] Address: [address] [place] [address] Original Ordering Provider: MELINA VYAS Generic External Data Provider CLINISYNC F inal Result Performing Organization Address [facility] de Phone Number MONIKA CHAVIRA [address] [place] [address] * CCF CENTROMERE AB SER QL IF [...] EDT Specimen Type: BLOOD SPECIMEN Ordering Facility: [facility] Address: [address] [place] [address] Original Ordering Provider: MELINA VYAS Generic External Data Provider CLINISYNC F inal Result Performing Organization Address [facility] de Phone Number MONIKA CHAVIRA [address] [place] [address] * CCF CCP IGG SERPL-ACNC (01/23/2025 11:47 AM EDT) CCF CCP ANTIBODY IGG QUALITATIVE Negative Negative CCF CCF CCP IGG SERPL-ACNC <15 <20 Units [facility]CF 01/23/2025 11:4 7 AM EDT 01/23/2025 4:46 PM EDT Narrative CLINISYNC - 01/24/2025 1:38 PM EDT Specimen Type: BLOOD SPECIMEN Ordering Facility: [facility] Address: [address] [place] [address] Original Ordering Provider: MELINA VYAS us Generic External Data Provider CLINISYNC F inal Result Performing Organization Address [facility] Co de Phone Number CLINISYNC [facility] [address] [address] * CCF C4 SERPL-MCNC (01/23/2025 11:47 AM EDT) CCF C4 SERPL-MCNC 21 13 - 46 mg/dL CCF 01/23/2025 11:4 7 AM EDT 01/23/2025 2:04 PM EDT Narrative CLINISYNC - 01/23/2025 10:17 PM EDT Specimen Type: BLOOD SPECIMEN Ordering Facility: [facility] Address: [address] [place] [address] Original Ordering Provider: MELINA VYAS us Generic External Data Provider CLINISYNC F inal Result Performing Organization Address [facility] Co de Phone Number CLINISYNC [facility] [address] [address] * CCF C3 SERPL-MCNC (01/23/2025 11:47 AM EDT) CCF C3 SERPL-MCNC 113 86 - 166 mg/dL CCF 01/23/2025 11:4 7 AM EDT 01/23/2025 2:04 PM EDT Narrative CLINISYNC - 01/23/2025 10:17 PM EDT Specimen Type: BLOOD SPECIMEN Ordering Facility: [facility] Address: [address] [place] [address] Original Ordering Provider: MELINA VYAS us Generic External Data Provider CLINISYNC F inal Result Performing Organization Address [facility] Co de Phone Number CLINISYNC [facility] [address] [address] * (ABNORMAL) CCF ALP SERPL-CCNC (01/23/2025 11:47 AM EDT) CCF ALP SERPL-CCNC 137(H) 34 - 123 U/L C[facility] 01/23/2025 11:4 7 AM EDT 01/23/2025 2:04 PM EDT Narrative CLINISYNC - 01/23/2025 8:20 PM EDT Specimen Type: BLOOD SPECIMEN Ordering Facility: [facility] Address: [address] [place] [address] Original Ordering Provider: MELINA VYAS Generic External Data Provider CLINISYNC F inal Result Performing Organization Address [facility] de Phone Number CLINISYNC CC [address] [address] * (ABNORMAL) CCF ALKALINE PHOSPHATASE ISOENZYMES (P) [...] EDT Specimen Type: BLOOD SPECIMEN Ordering Facility: [facility] Address: [address] [place] [address] Original Ordering Provider: MELINA VYAS Generic External Data Provider CLINISYNC F inal Result Performing Organization Address [facility] Co de Phone Number BOAZISYNC CC [address] [address] * CCF ALDOLASE SERPL-CCNC (01/23/2025 11:47 AM EDT) Pathologist [facility] ALDOLASE SERPL-CCNC 3.1 1.5 - 8.1 U/L CC Comment:This test was develo ped, and its performance characteristics determined by the [facility] Department of Pathology and Laboratory Medicine. It has not been cleared or approved by the FDA. The [facility] Department of Pathology and Laboratory Medicine is regulated under CLIA as qualified to perform high- complexity testing. This test is used for clinical purposes. It should not be regarded as investigational or for research. 01/23/2025 11:4 7 AM EDT 01/23/2025 4:46 PM EDT Narrative CLINISYNC - 01/23/2025 6:08 PM EDT Specimen Type: BLOOD SPECIMEN Ordering Facility: [facility] Address: [address] [place] [address] Original Ordering Provider: MELINA VYAS Generic External Data Provider CLINSocierciseNC F inal Result Performing Organization Address City/State/[facility] Co de Phone Number CLINISYNC [facility] [address] [facility] [address] [place] [address] * ALL KAPPA/LAMBDA FREE SERUM (01/23/2025 11:47 AM EDT) [facility] KAPPA LC FREE SER-MCNC 17.8 3.3 - 19.4 mg/L [facility] Comment: Rarely, increased serum free light chains levels may not be detected or accurately quantified due to prozone phenomenon or in high viscosity samples using this immunoturbidimetric assay. Correlation with other laboratory results and clinical findings is recommended. The [place] Free Light Chain was performed using the Binding Site Optilite immunoturbidimetric method. Result obtained with different assay methods or kits cannot be used interchangeably. CCF LAMBDA LC FREE SERPL-MCNC 13.5 5.7 - 26.3 mg/L CC Comment: Rarely, increased serum free light chains [...] 4:46 PM EDT Narrative CLINISYNC - 01/24/2025 3:15 PM EDT Specimen Type: BLOOD SPECIMEN Ordering Facility: [facility] Address: [address] [place] [address] Original Ordering Provider: MELINA VYAS Generic External Data Provider [facility] F inal Result Performing Organization Address [facility] [place] [address] * ALL [place]EN BY IFA SCREEN RFLX [...] AM EDT 01/23/2025 4:45 PM EDT Narrative CLINISYUT - 01/24/2025 4:06 PM EDT Specimen Type: BLOOD SPECIMEN Ordering Facility: [facility] Address: [address] [place] [address] Original Ordering Provider: MELINA VYAS Generic External Data Provider [facility] F inal Result Performing Organization Address [facility] de Phone Number MONIKA CONNOR [address] [place] [address] * CCF IMMUNOFIXATION SCREEN, SERUM (01/23/2025 11:47 AM EDT) CCF MPA RESULT No M protein is identified. No M protein is identified. CCF CCF STAFF REVIEW (MPA) Reviewed by La Aburto M.D., Ph.D [facility] 01/23/2025 11:4 7 AM EDT 01/23/2025 4:46 PM EDT Narrative CLINISYNC - 01/26/2025 11:33 AM EDT Specimen Type: BLOOD SPECIMEN Ordering Facility: [facility] Address: [address] [place] [address] Original Ordering Provider: MELINA VYAS us Generic External Data Provider CLINISYNC F inal Result CLINISYNC [facility] [address] [place] [address] [address] [phone] * CCF PROTEIN ELECTROPHORESIS SERUM (P) (01/23/2025 [...] CCF CCF SPE STAFF REVIEW Reviewed by Cecil Cedillo MD [facility] 01/23/2025 11:4 7 AM EDT 01/23/2025 4:46 PM EDT Narrative CLINISYNC - 01/25/2025 7:51 AM EDT Specimen Type: BLOOD SPECIMEN Ordering Facility: [facility] Address: [address] [place] [address], [place] [address] Original Ordering Provider: MELINA VYAS Generic External Data Provider MONIKA jamison Result MONIKA CC [address] [facility] [address] [place] [address] * POCT Glycated hemoglobin, total (10/06/2024 3:56 PM EST) Hemoglobin A1C 5.0 Blood 10/06/2024 3:56 PM EST Belem Feldman GLASSWARE MAKER POINT OF CARE TEST ENTER/BI T ORDERABLES Final Result * COLONOSCOPY DIAGNOSTIC (10/08/2023 2:44 PM EST) Anatomical Region Laterality Modality Radiographic Edwige ging Unknown Practice A IMG XR PROCEDURES Final Resul t from Last 3 Months or Most Recently Relevant to Health Maintenance Insurance [address] [place] [address] [facility] Care Teams Underground Electrician Relationship Specialty Start Date End Date Shlomo Hu MD [address] [facility] [address] [place] [address] PCP - General Internal Medicine 02/15/23 Jess Marsh LPN [address] [address] 12/06/24 Esthela Tesfaye, RECEIVING BARN CUSTODIAN [address] [place] [address] Transcription Family Medicine 02/03/25
--- OUTSIDE RECORDS SUMMARY | 2025-04-09 12:03 | XMS_ITS | Encounter Summary ---
Author Organization [facility] Address [address] [place] [address] Care Team Providers Care Etcher Electrolytic Name Role Phone Jacob Sharp Unavailable Rasheeda Newton RD Unavailable [phone] Unavailable [phone] Fritz HENDERSON MD, Shlomo Momin Primary Care Provider [phone] Yuan Miller MD, PhD Unavailable [phone] Source Comments In the event this information is protected by the Federal Confidentiality of Alcohol and Drug AbusePatient Records regulations: The Federal rules restrict any use of the information to criminally investigate or prosecute any alcohol or drug abuse patient.[facility] Encounter Details Date Type Department Care Team (Late st Contact Info) Description 04/15/2024 Patient [facility] [address] [id number] Provider, [facility] Obtain previous MRI images and [...] 4 03/05/2023 Data from: https://www.[email or web address].medicine.[email or web address].edu/. Last address used for calculation [address] [...] 10:00 AM EDT Hospital Encounter Admitting [address] [place] [address] Yuan [place], [place] [address] [place] [id number] Nausea and vomiting, unspecified vomiting type [R11.2], H/O bariatric surgery [Z98.84], Jejunostomy tube fell out [T85.528A] 04/10/2025 10:00 AM EDT - 04/10/2025 12:00 PM EDT Surgery Admitting [facility] [place] [address] Yuan Miller MD, PhD [address] [id number] LAPAROSCOPIC JEJUNOSTOMY 04/19/2025 11:00 AM EDT [facility] Neurological Adventism [address] [id number] Joann Loera APRN.FREELANCE TRANSLATOR [address] [id number] Cognitive movement issues 04/21/2025 8:30 AM EDT [facility] Nutrition Therapy [address] [id number] Tiffany Banks, RD [address] [id number] f/u TF forula tolerance and hydration 05/18/2025 9:00 AM EDT [facility] General Surgery [address] [place] [address] Michael Mora PA-C [address] [place] [address] f/u with michael mora in 2 wks 05/29/2025 9:00 AM EDT [facility] Gastroenterology [address] [phone] Johanna Martinez MD [facility] [address] [place], [place] [phone] 3 month follow up 06/28/2025 10:00 AM EDT [facility] Neurology Pain [address] [id number] [place] [address] [address] [id number] Follow up for pain Scheduled Procedures Name [...] documented as of this encounter Care Teams Etcher Electrolytic Relationship Specialty Start Date End Date Shlomo Hu II, MD [address] [place] [address] PCP - General Internal Medicine 10/06/23 Jacob Sharp [address] [place] [address] Referring 04/30/[address] [place] [address] Registered Dietitian Nutrition 06/24/[address] [place] [address] Registered Dietitian Nutrition 08/27/23 Yuan Miller MD, PhD [address] [place] [address] Surgeon General Surgery 02/03/24 documented as of this encounter
[2025-04-09 12:54] LABS: C. Difficile PCR NEGATIVE
== END 2025-04-09 11:44 | disposition home or self-care (01) ==
LOC: LAB 11:43
PROVIDERS: PCP Internal Medicine; Visit Provider Physician Assistant
DX: R19.5 Other fecal abnormalities (principal)
CPT/HCPCS: 87493

== ENCOUNTER 2025-04-10 07:30 | Outpatient (RCR) | payer BC, SELFPAY ==
[2025-04-06] MEDS: ERTAPENEM SODIUM 1 GM in 0.9 % SODIUM CHLORIDE 50 ML IV (15:43)
[2025-04-06 15:49] VITALS: BP 115/74; PULSE 82; TEMP 36.8; O2SAT 95
[2025-04-06] MEDS: MULTIVIT INFUSN,ADULT 4,VIT K 10 ML in 0.9 % SODIUM CHLORIDE 1,000 ML 1000 ML IV (15:57)
--- NOTE | 2025-04-06 16:12 | PC.NURSE ---
Pt. tolerating infusion without c/o. Relays brief wave of nausea that ceased. Denies needs.
[2025-04-07] MEDS: 0.9 % SODIUM CHLORIDE 1,000 ML 1000 ML IV (07:58)
[2025-04-07] MEDS: ERTAPENEM SODIUM 1 GM in 0.9 % SODIUM CHLORIDE 50 ML IV (08:00)
[2025-04-07 08:28] VITALS: BP 133/83; PULSE 83; TEMP 36.4; O2SAT 97
[2025-04-08 10:41] VITALS: BP 117/64; PULSE 74; TEMP 36.4; O2SAT 95
[2025-04-08] MEDS: ERTAPENEM SODIUM 1 GM in 0.9 % SODIUM CHLORIDE 50 ML IV (10:46)
[2025-04-08] MEDS: ONDANSETRON 4 MG RAPDIS TABLET PO (11:08)
[2025-04-08 11:20] VITALS: BP 138/95; PULSE 70; TEMP 36.5; O2SAT 95
[2025-04-09 10:46] VITALS: BP 117/72; PULSE 73; TEMP 36.6; O2SAT 96
[2025-04-09] MEDS: ERTAPENEM SODIUM 1 GM in 0.9 % SODIUM CHLORIDE 50 ML IV (10:47)
[2025-04-09 11:24] VITALS: BP 134/86; PULSE 70; TEMP 36.4; O2SAT 95
== END 2025-04-13 23:59 | disposition home or self-care (01) ==
LOC: INF 07:30
PROVIDERS: PCP Internal Medicine; Visit Provider Nurse Practitioner Family
DX: R19.5 Other fecal abnormalities (principal); R11.2 Nausea with vomiting, unspecified
CPT/HCPCS: 87493; 96361; 96365; 96375; J1335; J2405; Q0162